=== PATIENT | female | born 1945 | race Caucasian/White ===

== ENCOUNTER 2016-09-05 01:45 | Inpatient (IN) | payer MEDICARE, OTHER ==
[2016-09-05] MEDS ORDERED: NORMAL SALINE 1000 ML 500 ML IV ONE (02:47)
[2016-09-05] MEDS ORDERED: IPRATROPIUM/ALBUTEROL 0.5-2.5 MG/3 ML AMPUL NEB ONE ×2 (03:31→04:40)
--- NOTE | 2016-09-05 03:33 | ER Document Report ---
ED Respiratory Problem - General Time seen by provider: 03:30 Mode of Arrival: Medic Information source: Patient, Friend TRAVEL OUTSIDE OF THE [place] IN LAST 30 DAYS: No - HPI Patient complains to provider of: Cough, Short of breath, Other - pain Onset: Other - see HPI Context: Hx CHF, Hx COPD Associated symptoms: Cough <FLORA ALAN - Last Filed: 09/05/16 04:30> <CAROLE ABEBE - Last Filed: 09/05/16 05:43> - General Chief Complaint: Shortness Of Breath Stated Complaint: PAIN ALL OVER Notes: Patient is a 71-year-old female presents to the emergency department with complaints of general pain, cough and difficulty breathing. Patient is quite drowsy but arousable. Patient reports that she's had some difficulty breathing and a cough that started today. Patient's shuttler or family member states that the patient usually becomes short of breath which is worse tonight. Patient was brought in because of her "pain all over." Patient's shuttler states that he gave her Percocet just prior to EMS arrival. Patient is on oxygen at home and has a history of COPD and CHF. Patient also has a nebulizer at home. (FLORA ALAN) - Related Data Allergies/Adverse Reactions: amoxicillin [Amoxicillin] Allergy (Verified 11/26/15 15:48) amoxicillin trihydrate [From Augmentin] Allergy (Verified 11/26/15 15:48) erythromycin base [Erythromycin Base] Allergy (Verified 11/26/15 15:48) Potassium Clavulanate * [From Augmentin] Allergy (Verified 11/26/15 15:48) Past Medical History - General Information source: Patient, Friend - Social History Smoking Status: Smoker,Current Status Unk Chew tobacco use (# tins/day): No Frequency of alcohol use: None Drug Abuse: None Family History: Malignancy - Lung cancer - Past Medical History Cardiac Medical History: Reports: Hx Congestive Heart Failure, Hx Coronary Artery Disease, Hx Heart Attack, Hx Hypercholesterolemia, Hx Hypertension Pulmonary Medical History: Reports: Hx Asthma, Hx COPD - Home O2 dependent, Hx Pneumonia Endocrine Medical History: Reports: Hx Hypothyroidism Malignancy Medical History: Reports: Hx Brain Cancer - Lung cancer with brain metastases, 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 Past Surgical History: Reports: Hx Cholecystectomy, Hx Orthopedic Surgery - Foot surgery - Immunizations Hx Diphtheria, Pertussis, Tetanus Vaccination: Yes Hx Pneumococcal Vaccination: 08/30/12 <FLORA ALAN - Last Filed: 09/05/16 04:30> Review of Systems - Review of Systems Constitutional: No symptoms reported EENT: No symptoms reported Cardiovascular: No symptoms reported Respiratory: See HPI, Cough, Short of breath Gastrointestinal: No symptoms reported Genitourinary: No symptoms reported Female Genitourinary: No symptoms reported Musculoskeletal: See HPI Skin: No symptoms reported Hematologic/Lymphatic: No symptoms reported Neurological/Psychological: No symptoms reported -: Yes All other systems reviewed and negative <FLORA ALAN - Last Filed: 09/05/16 04:30> Physical Exam - Vital signs Interpretation: Hypotensive, Tachycardic - General General appearance: Appears well, Alert, Other - Drowsy but arousable In distress: Mild - HEENT Head: Normocephalic, Atraumatic Eyes: Normal Pupils: PERRL Mucous membranes: Moist - Respiratory Respiratory status: No respiratory distress Chest status: Nontender Breath sounds: Wheezing - Course wheezing throughout Chest palpation: Normal - Cardiovascular Rhythm: Regular Heart sounds: Normal auscultation Murmur: No - Abdominal Inspection: Normal Distension: No distension Bowel sounds: Normal Tenderness: Nontender Organomegaly: No organomegaly - Back Back: Normal, Nontender - Extremities General upper extremity: Normal inspection, Normal ROM, Normal strength General lower extremity: Normal inspection, Normal ROM, Normal strength - Neurological Neuro grossly intact: Yes Cognition: Normal Orientation: AAOx4 Raquel Coma Scale Eye Opening: Spontaneous [place] Coma Scale Verbal: Oriented [place] Coma Scale Motor: Obeys Commands Raquel Coma Scale Total: 15 Speech: Normal - Psychological Associated symptoms: Normal affect, Normal mood - Skin Skin Temperature: Warm Skin Moisture: Dry <FLORA ALAN - Last Filed: 09/05/16 04:30> Course - Laboratory Result Diagrams: 09/05/16 03:52 09/05/16 03:52 <FLORA ALAN - Last Filed: 09/05/16 04:30> - Laboratory Result Diagrams: 09/05/16 03:52 09/05/16 03:52 <CAROLE ABEBE - Last Filed: 09/05/16 05:43> - Re-evaluation Re-evalutation: 09/05/16 05:41 Patient is a 71-year-old female who comes in with difficulty breathing. Patient is drowsy and presentation but received Percocet prior to arrival. Patient denies any chest pain. No evidence for CHF exacerbation. Patient is a continued wheezing despite DuoNeb, magnesium, and Solu-Medrol. Blood gas come back with an elevated CO2. Patient will be started on BiPAP. Patient will be given Levaquin and admitted to the [facility] for her COPD exacerbation with hypoxia and CO2 retention. (CAROLE ABEBE) - Vital Signs Vital signs: Temp Pulse Resp BP Pulse Ox 98.1 F 21 H 113/69 99 09/05/16 01:56 09/05/16 04:07 09/05/16 04:07 09/05/16 04:07 (FLORA ALAN) (CAROLE ABEBE) - Laboratory Laboratory results interpreted by me: 09/05/16 09/05/16 09/05/16 03:52 03:52 05:08 RDW 16.5 H Seg Neutrophils % 80.6 H Lymphocytes % 8.0 L Absolute Neutrophils 8.4 H VBG pH 7.25 L VBG pCO2 66.9 H* Carbon Dioxide 31 H Albumin 3.4 L (CAROLE ABEBE) Critical Care Note - Critical Care Note Total time excluding time spent on procedures (mins): 45 - evaluation and management of respiratory distress with multiple re-evaluations, management of hypoxia, coordination of admission, counseling of patient and family <CAROLE ABEBE - Last Filed: 09/05/16 05:43> Discharge <FLORA ALAN - Last Filed: 09/05/16 04:30> - Discharge Admitting Provider: [facility] Unit Admitted: [facility] <CAROLE ABEBE - Last Filed: 09/05/16 05:43> - Discharge Clinical Impression: COPD exacerbation, Respiratory distress, Hypoxia Pneumonia Qualifiers: Pneumonia type: due to unspecified organism Laterality: unspecified laterality Lung location: unspecified part of lung Qualified Code(s): J18.9 - Pneumonia, unspecified organism Condition: Fair Disposition: ADMITTED INPATIENT Scribe Attestation: 09/05/16 05:43 I personally performed the services described in the documentation, reviewed and edited the documentation which was dictated to the scribe in my presence, and it accurately records my words and actions. (CAROLE ABEBE) Scribe Documentation - Scribe Written by Scribe:: Flora Alan 09/05/16 04:36 acting as scribe for :: Reyes <FLORA ALAN - Last Filed: 09/05/16 04:30>
[2016-09-05] MEDS: MAGNESIUM SULFATE/D5W 100 ML IV SCH ×2 (04:01→06:15)
[2016-09-05 04:20] LABS: ABSOLUTE EOSINOPHILS # (AUTO) 0.1 10^3/uL (0.0-0.6); ABSOLUTE LYMPHOCYTES (AUTO) 0.8 10^3/uL (0.5-4.7); ABSOLUTE MONOCYTES (AUTO) 1.1 10^3/uL (0.1-1.4); ABSOLUTE NEUT (AUTO) 8.4 10^3/uL (1.7-8.2); BASOPHILS % (AUTO) 0.3 % (0-2); EOSINOPHILS % (AUTO) 0.8 % (0-6); HEMATOCRIT 36.9 % (36.0-47.0); HEMOGLOBIN 12.1 g/dL (12.0-15.5); HGB HCT DIFFERENCE -0.6; MEAN CORPUSCULAR HEMOGLOBIN 29.6 pg (27.0-33.4); MEAN CORPUSCULAR HGB CONC 32.7 g/dL (32.0-36.0); MEAN CORPUSCULAR VOLUME 90 fl (80-97); MONOCYTES % (AUTO) 10.3 % (3-13); RED BLOOD COUNT 4.09 10^6/uL (3.72-5.28); RED CELL DISTRIBUTION WIDTH 16.5 % (11.5-14.0); SEGMENTED NEUTROPHILS % (AUTO) 80.6 % (42-78); WHITE BLOOD COUNT 10.4 10^3/uL (4.0-10.5)
[2016-09-05 04:37] LABS: PROTHROMBIN TIME 12.7 SEC (11.4-15.4)
[2016-09-05] MEDS ORDERED: METHYLPREDNISOLONE INJ 125 MG/2 ML SDV IV ONE ×2 (04:40→08:15)
[2016-09-05 04:51] LABS: CALCIUM 8.7 mg/dL (8.4-10.2); GLUCOSE 110 mg/dL (75-110)
[2016-09-05 04:52] LABS: ALANINE AMINOTRANSFERASE 26 U/L (9-52); ALBUMIN 3.4 g/dL (3.5-5.0); ALKALINE PHOSPHATASE 72 U/L (38-126); ANION GAP 8 (5-19); ASPARTATE AMINO TRANSFERASE 27 U/L (14-36); BILIRUBIN,TOTAL 0.5 mg/dL (0.2-1.3); BLOOD UREA NITROGEN 16 mg/dL (7-20); CARBON DIOXIDE 31 mmol/L (22-30); CHLORIDE 102 mmol/L (98-107); CREATININE RESULT 0.92 mg/dL (0.52-1.25); POTASSIUM 3.8 mmol/L (3.6-5.0); SODIUM 140.6 mmol/L (137-145); TOTAL PROTEIN 6.6 g/dL (6.3-8.2)
[2016-09-05] MEDS ORDERED: LEVOFLOXACIN 750 MG/D5W RTU 150 ML IV ONE (05:18)
[2016-09-05 05:22] LABS: TROPONIN I < 0.012 ng/mL
[2016-09-05] MEDS ORDERED: GUAIFENESIN SYRP 200 MG/10 ML UDC PO PRN (05:23)
[2016-09-05 05:24] LABS: VENOUS BLOOD HCO3 28.7 mmol/L (20-32); VENOUS BLOOD PH 7.25 (7.30-7.42)
[2016-09-05 05:28] LABS: VENOUS BLOOD PCO2 66.9 mmHg (35-63)
[2016-09-05] MEDS ORDERED: FLUTICASONE NASAL SPRAY 50 MCG/SPRY 120 SPRAY/16 GM NASL SCH (05:30)
[2016-09-05] MEDS ORDERED: LEVOTHYROXINE SODIUM 0.088 MG TABLET PO SCH (06:00)
[2016-09-05 06:09] LABS: APPEARANCE,URINE CLOUDY; BILIRUBIN,URINE NEGATIVE (NEGATIVE); GLUCOSE, URINE NEGATIVE (NEGATIVE); KETONES,URINE NEGATIVE (NEGATIVE); LEUKOCYTE ESTERASE,URINE NEGATIVE (NEGATIVE); NITRITE,URINE NEGATIVE (NEGATIVE); PROTEIN,URINE NEGATIVE (NEGATIVE); URINE SPECIFIC GRAVITY 1.028; UROBILINOGEN,URINE NEGATIVE mg/dL (<2.0)
[2016-09-05] MEDS ORDERED: HEPARIN SOD (PORCINE) 5,000 UNIT/ML 1 ML SYRINGE SUBCUT ONE (08:15)
--- NOTE | 2016-09-05 08:20 | EKG REPORT ---
SEVERITY:- ABNORMAL ECG - SINUS TACHYCARDIA RIGHT BUNDLE BRANCH BLOCK : Confirmed by: Issa Martinez MD 05-Sep-2016 08:19:55
[2016-09-05] MEDS: IPRATROPIUM/ALBUTEROL 0.5-2.5 MG/3 ML AMPUL NEB SCH ×3 (08:27→19:38)
[2016-09-05] MEDS ORDERED: LEVOTHYROXINE SODIUM 0.088 MG TABLET PO ONE (08:30)
[2016-09-05] MEDS: METHYLPREDNISOLONE INJ 125 MG/2 ML SDV IV SCH ×3 (08:36→21:11)
[2016-09-05] MEDS: HEPARIN SOD (PORCINE) 5,000 UNIT/ML 1 ML SYRINGE SUBCUT SCH ×3 (08:36→21:15)
[2016-09-05] MEDS ORDERED: ACETAMINOPHEN 325 MG TABLET PO SCH (10:00)
[2016-09-05] MEDS: FUROSEMIDE 20 MG TABLET PO SCH (10:28)
[2016-09-05] MEDS: DOCUSATE SODIUM 100 MG CAPSULE PO SCH (10:28)
[2016-09-05] MEDS: POTASSIUM CHLORIDE 10 MEQ TABLET.SA PO SCH (10:28)
[2016-09-05] MEDS: GUAIFENESIN 600 MG TABLET.SA PO SCH ×2 (10:29→21:15)
[2016-09-05] MEDS: ASPIRIN 81 MG TABLET, CHEWABLE PO SCH (10:29)
[2016-09-05] MEDS ORDERED: OXYCODONE-ACETAMINOPHEN 5-325 MG TABLET PO PRN (10:48)
[2016-09-05] MEDS ORDERED: ACETAMINOPHEN 325 MG TABLET PO PRN (12:05)
[2016-09-05] MEDS: TIOTROPIUM BROMIDE DPI 5 CAP/KIT (18 MCG/CAP) IH SCH (14:52)
[2016-09-05] MEDS: FLUTICASONE NASAL SPRAY 50 MCG/SPRY 120 SPRAY/16 GM NASL SCH (15:00)
[2016-09-05] MEDS: FLUTICASONE/SALMETEROL DISKUS 500-50 MCG/DOSE IH SCH (21:11)
[2016-09-06] MEDS: IPRATROPIUM/ALBUTEROL 0.5-2.5 MG/3 ML AMPUL NEB SCH ×2 (01:33→08:09)
[2016-09-06 05:38] LABS: ANION GAP 11 (5-19); BLOOD UREA NITROGEN 19 mg/dL (7-20); CALCIUM 9.1 mg/dL (8.4-10.2); CARBON DIOXIDE 27 mmol/L (22-30); CHLORIDE 104 mmol/L (98-107); CREATININE RESULT 0.87 mg/dL (0.52-1.25); GLUCOSE 197 mg/dL (75-110); SODIUM 141.8 mmol/L (137-145)
--- NOTE | 2016-09-06 05:59 | PDOC PROGRESS REPORT ---
Subjective Progress Note for:: 09/05/16 Subjective:: Patient reports that she still short of breath. Patient denies chest pain, abdominal pain, nausea, vomiting, fevers, chills, diarrhea, constipation, headache, new onset weakness. Physical Exam Vital Signs: Temp Pulse Resp BP Pulse Ox 98.1 F 109 H 20 115/71 96 09/05/16 01:56 09/05/16 08:27 09/05/16 08:27 09/05/16 06:01 09/05/16 08:27 Intake & Output 09/04/16 09/05/16 09/06/16 06:59 06:59 06:59 Weight 86.183 kg Exam: General: Awake alert and oriented x3, mild respiratory distress HEENT: AT/NC, PERRL, EOMI, oropharynx is moist, pink, no scleral icterus, no conjunctival injection Neck: No JVD, trachea midline Chest: Tachypnea, right-sided rhonchi CV: Regular rate and rhythm, normal S1 and S2, no murmur, rub, or gallop Abdomen: Soft, nontender to palpation, nondistended, active bowel sounds; no rebound, rigidity, or guarding Extremities: No cyanosis, clubbing or edema Neuro: Cranial nerves II through XII are grossly intact without focal deficits; awake alert and oriented x3 Psych: Normal mood and affect Results Impressions: Chest X-Ray 09/05/16 02:48 IMPRESSION: NO ACUTE CARDIOPULMONARY PROCESS. NO SIGNIFICANT CHANGE FROM PRIOR STUDY. Assessment & Plan - Diagnosis (1) SIRS (systemic inflammatory response syndrome) Is this a current diagnosis for this admission?: YesPlan: Patient meets criteria for SIRS likely secondary to COPD exacerbation/possible early pneumonia. (2) Acute hypoxemic respiratory failure Is this a current diagnosis for this admission?: YesPlan: Continue oxygen as needed. Patient refused BiPAP. (3) COPD exacerbation Is this a current diagnosis for this admission?: YesPlan: Continue Solu-Medrol and scheduled nebulized treatments. Encourage incentive spirometry and flutter valve. (4) Chronic back pain Is this a current diagnosis for this admission?: YesPlan: Continue Percocet as needed (5) GERD (gastroesophageal reflux disease) Qualifiers: Esophagitis presence: esophagitis presence not specified Qualified Code (s): K21.9 - Gastro-esophageal reflux disease without esophagitis Is this a current diagnosis for this admission?: YesPlan: Continue PPI (6) Hypertension Qualifiers: Hypertension type: essential hypertension Qualified Code(s): I10 - Essential (primary) hypertension Is this a current diagnosis for this admission?: Yes (7) Lung mass Is this a current diagnosis for this admission?: YesPlan: And has prior history of lung mass and postobstructive pneumonia from this. Will consider repeat CT. 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
[2016-09-06] MEDS ORDERED: LEVOTHYROXINE SODIUM 0.088 MG TABLET PO SCH (06:00)
[2016-09-06 06:02] LABS: HEMATOCRIT 32.9 % (36.0-47.0); HEMOGLOBIN 11.1 g/dL (12.0-15.5); HGB HCT DIFFERENCE 0.4; MEAN CORPUSCULAR HGB CONC 33.6 g/dL (32.0-36.0); MEAN CORPUSCULAR VOLUME 89 fl (80-97); RED BLOOD COUNT 3.68 10^6/uL (3.72-5.28); RED CELL DISTRIBUTION WIDTH 16.3 % (11.5-14.0); WHITE BLOOD COUNT 9.1 10^3/uL (4.0-10.5)
[2016-09-06 06:09] LABS: BAND NEUTROPHILS % (MANUAL) 2 % (3-5); BASOPHILS % (MANUAL) 0 % (0-2); EOSINOPHILS % (MANUAL) 0 % (0-6); LYMPHOCYTES % (MANUAL) 6 % (13-45); TOTAL CELLS COUNTED 100
[2016-09-06 06:12] LABS: ANISOCYTOSIS 1+; POIKILOCYTOSIS SLIGHT; POLYCHROMASIA SLIGHT; TOXIC GRANULATION SLIGHT
[2016-09-06 06:13] LABS: OVALOCYTES SLIGHT; TEAR DROP CELLS SLIGHT
[2016-09-06] MEDS: METHYLPREDNISOLONE INJ 125 MG/2 ML SDV IV SCH ×3 (06:15→21:08)
[2016-09-06] MEDS: HEPARIN SOD (PORCINE) 5,000 UNIT/ML 1 ML SYRINGE SUBCUT SCH ×3 (06:15→21:07)
[2016-09-06] MEDS ORDERED: LEVOFLOXACIN 750 MG/D5W RTU 750 MG/150 ML RTUPB IV SCH (10:00)
[2016-09-06] MEDS ORDERED: (PENDING PHARMACY ID) (Esomeprazole Mag Trihydrate [Nexium] 40 MG) PO SCH (10:00)
[2016-09-06] MEDS: TIOTROPIUM BROMIDE DPI 5 CAP/KIT (18 MCG/CAP) IH SCH (10:47)
[2016-09-06] MEDS: FLUTICASONE/SALMETEROL DISKUS 500-50 MCG/DOSE IH SCH ×2 (10:47→21:08)
[2016-09-06] MEDS: DOCUSATE SODIUM 100 MG CAPSULE PO SCH (10:48)
[2016-09-06] MEDS: LEVOTHYROXINE SODIUM 0.05 MG TABLET PO SCH (10:48)
[2016-09-06] MEDS: FUROSEMIDE 20 MG TABLET PO SCH (10:49)
[2016-09-06] MEDS: LANSOPRAZOLE 30 MG TAB.RAP.DR PO SCH (10:49)
[2016-09-06] MEDS: ASPIRIN 81 MG TABLET, CHEWABLE PO SCH (10:49)
[2016-09-06] MEDS: POTASSIUM CHLORIDE 10 MEQ TABLET.SA PO SCH (10:49)
[2016-09-06] MEDS: GUAIFENESIN 600 MG TABLET.SA PO SCH ×2 (10:49→21:08)
[2016-09-06] MEDS: FLUTICASONE NASAL SPRAY 50 MCG/SPRY 120 SPRAY/16 GM NASL SCH (10:50)
--- NOTE | 2016-09-06 13:31 | PDOC PROGRESS REPORT ---
Subjective Progress Note for:: 09/06/16 Subjective:: Patient states that her breathing is slightly improved from admission. She is still short of breath at rest. She continues to have a productive cough. Patient denies fever, chills, headache, new focal weakness, chest pain, abdominal pain, nausea, vomiting, diarrhea, constipation. Physical Exam Vital Signs: Temp Pulse Resp BP Pulse Ox 98.3 F 105 H 24 H 124/77 95 09/05/16 23:29 09/06/16 08:08 09/06/16 08:08 09/05/16 23:29 09/06/16 08:08 Intake & Output 09/05/16 09/06/16 09/07/16 06:59 06:59 06:59 Intake Total 525 Balance 525 Weight 86.183 kg 87.7 kg GENERAL: No acute distress HEENT: Conjunctiva clear, nonicteric, moist mucous membranes, no JVD, midline trachea RESPIRATORY: Bilateral rhonchi/wheezes, diminished air excursion. CARDIAC: Regular rate and rhythm, no murmurs/gallops/rubs ABDOMEN: Soft, nondistended, nontender, positive bowel sounds, no rebound, no guarding EXTREMETIES: No edema, cyanosis, clubbing NEUROLOGIC: Alert, oriented to person/place/time, CN's grossly intact, no focal deficits SKIN: No rash, wounds PSYCH: Normal mood, normal affect Results Laboratory Results: 09/06/16 04:25 09/06/16 04:25 09/06/16 09/06/16 04:25 04:25 WBC 9.1 RBC 3.68 L Hgb 11.1 L Hct 32.9 L MCV 89 MCH 30.0 MCHC 33.6 RDW 16.3 H Plt Count 166 Seg Neutrophils % Not Reportable Lymphocytes % Not Reportable Monocytes % Not Reportable Eosinophils % Not Reportable Basophils % Not Reportable Absolute Neutrophils Not Reportable Absolute Lymphocytes Not Reportable Absolute Monocytes Not Reportable Absolute Eosinophils Not Reportable Absolute Basophils Not Reportable Sodium 141.8 Potassium 4.0 Chloride 104 Carbon Dioxide 27 Anion Gap 11 BUN 19 Creatinine 0.87 Est GFR ( Amer) > 60 Est GFR (Non-Af Amer) > 60 Glucose 197 H Calcium 9.1 Impressions: Chest X-Ray 09/05/16 02:48 IMPRESSION: NO ACUTE CARDIOPULMONARY PROCESS. NO SIGNIFICANT CHANGE FROM PRIOR STUDY. Assessment & Plan - Diagnosis (1) Acute hypoxemic respiratory failure Is this a current diagnosis for this admission?: YesPlan: Continue oxygen supplementation. (2) COPD exacerbation Is this a current diagnosis for this admission?: YesPlan: Continue IV Solu-Medrol, nebulizer treatments, Spiriva, Advair. (3) Pneumonia Qualifiers: Pneumonia type: due to unspecified organism Laterality: unspecified laterality Lung location: unspecified part of lung Qualified Code(s): J18.9 - Pneumonia, unspecified organism Is this a current diagnosis for this admission?: YesPlan: Chest x-ray shows no definite process however patient clinically presents as pneumonia on physical exam. Continue IV Levaquin for now. (4) Chronic back pain Is this a current diagnosis for this admission?: Yes (5) GERD (gastroesophageal reflux disease) Qualifiers: Esophagitis presence: esophagitis presence not specified Qualified Code (s): K21.9 - Gastro-esophageal reflux disease without esophagitis Is this a current diagnosis for this admission?: Yes (6) Hypertension Qualifiers: Hypertension type: essential hypertension Qualified Code(s): I10 - Essential (primary) hypertension Is this a current diagnosis for this admission?: Yes (7) Lung mass Is this a current diagnosis for this admission?: YesPlan: Repeat CT scan of chest. (8) Full code status Is this a current diagnosis for this admission?: Yes - Time Time Spent with patient: 35 or more minutes
[2016-09-06] MEDS: ALBUTEROL SULFATE 0.083% NEB 2.5 MG/3 ML AMPUL NEB SCH ×2 (13:55→20:14)
[2016-09-07] MEDS: ALBUTEROL SULFATE 0.083% NEB 2.5 MG/3 ML AMPUL NEB PRN (01:01)
[2016-09-07] MEDS: LANSOPRAZOLE 30 MG TAB.RAP.DR PO SCH (03:24)
[2016-09-07] MEDS: HEPARIN SOD (PORCINE) 5,000 UNIT/ML 1 ML SYRINGE SUBCUT SCH ×3 (05:24→21:50)
[2016-09-07] MEDS: METHYLPREDNISOLONE INJ 125 MG/2 ML SDV IV SCH (05:24)
[2016-09-07] MEDS: ALBUTEROL SULFATE 0.083% NEB 2.5 MG/3 ML AMPUL NEB SCH ×3 (07:51→19:31)
[2016-09-07 07:56] LABS: HEMATOCRIT 33.1 % (36.0-47.0); HEMOGLOBIN 10.9 g/dL (12.0-15.5); HGB HCT DIFFERENCE -0.4; MEAN CORPUSCULAR HEMOGLOBIN 29.5 pg (27.0-33.4); MEAN CORPUSCULAR HGB CONC 32.8 g/dL (32.0-36.0); MEAN CORPUSCULAR VOLUME 90 fl (80-97); RED BLOOD COUNT 3.69 10^6/uL (3.72-5.28); RED CELL DISTRIBUTION WIDTH 16.3 % (11.5-14.0); WHITE BLOOD COUNT 12.7 10^3/uL (4.0-10.5)
[2016-09-07 08:11] LABS: ANION GAP 9 (5-19); BLOOD UREA NITROGEN 22 mg/dL (7-20); CALCIUM 9.3 mg/dL (8.4-10.2); CARBON DIOXIDE 27 mmol/L (22-30); CHLORIDE 106 mmol/L (98-107); CREATININE RESULT 0.94 mg/dL (0.52-1.25); GLUCOSE 140 mg/dL (75-110); POTASSIUM 4.4 mmol/L (3.6-5.0); SODIUM 141.6 mmol/L (137-145)
[2016-09-07 08:26] LABS: BASOPHILS % (MANUAL) 0 % (0-2); EOSINOPHILS % (MANUAL) 0 % (0-6); LYMPHOCYTES % (MANUAL) 5 % (13-45); TOTAL CELLS COUNTED 100
[2016-09-07 08:27] LABS: ANISOCYTOSIS SLIGHT; OVALOCYTES SLIGHT; POIKILOCYTOSIS SLIGHT; SCHISTOCYTES SLIGHT
--- NOTE | 2016-09-07 09:17 | PDOC PROGRESS REPORT ---
Subjective Progress Note for:: 09/07/16 Subjective:: Patient's shortness of breath and cough has markedly improved over the past 24 hours. Patient denies fever, chills, headache, new focal weakness, chest pain, abdominal pain, nausea, vomiting, diarrhea, constipation. Physical Exam Vital Signs: Temp Pulse Resp BP Pulse Ox 97.4 F 81 22 H 130/66 H 99 09/07/16 07:00 09/07/16 07:00 09/07/16 07:00 09/07/16 07:00 09/07/16 07:00 Intake & Output 09/06/16 09/07/16 09/08/16 06:59 06:59 06:59 Intake Total 525 1055 Balance 525 1055 Weight 87.7 kg 90.2 kg GENERAL: No acute distress HEENT: Conjunctiva clear, nonicteric, moist mucous membranes, no JVD, midline trachea RESPIRATORY: Faint bilateral wheezes, good air excursion CARDIAC: Regular rate and rhythm, no murmurs/gallops/rubs ABDOMEN: Soft, nondistended, nontender, positive bowel sounds, no rebound, no guarding EXTREMETIES: No edema, cyanosis, clubbing NEUROLOGIC: Alert, oriented to person/place/time, CN's grossly intact, no focal deficits SKIN: No rash, wounds PSYCH: Normal mood, normal affect Results Laboratory Results: 09/07/16 07:17 09/07/16 07:17 09/07/16 09/07/16 07:17 07:17 WBC 12.7 H RBC 3.69 L Hgb 10.9 L Hct 33.1 L MCV 90 MCH 29.5 MCHC 32.8 RDW 16.3 H Plt Count 222 Seg Neutrophils % Not Reportable Lymphocytes % Not Reportable Monocytes % Not Reportable Eosinophils % Not Reportable Basophils % Not Reportable Absolute Neutrophils Not Reportable Absolute Lymphocytes Not Reportable Absolute Monocytes Not Reportable Absolute Eosinophils Not Reportable Absolute Basophils Not Reportable Sodium 141.6 Potassium 4.4 Chloride 106 Carbon Dioxide 27 Anion Gap 9 BUN 22 H Creatinine 0.94 Est GFR ( Amer) > 60 Est GFR (Non-Af Amer) 58 L Glucose 140 H Calcium 9.3 Impressions: Chest X-Ray 09/05/16 02:48 IMPRESSION: NO ACUTE CARDIOPULMONARY PROCESS. NO SIGNIFICANT CHANGE FROM PRIOR STUDY. Chest/Abdomen CTA 09/06/16 00:00 IMPRESSION: No evidence of pulmonary embolus. No suspicious interval change. Right perihilar/ prevascular opacity persists. Assessment & Plan - Diagnosis (1) Acute hypoxemic respiratory failure Is this a current diagnosis for this admission?: YesPlan: Continue oxygen supplementation. Patient has home oxygen in place at baseline. (2) COPD exacerbation Is this a current diagnosis for this admission?: YesPlan: Discontinue IV Solu-Medrol. Start prednisone 40 mg daily. Continue nebulizer treatments, Spiriva, Advair. (3) Pneumonia Qualifiers: Pneumonia type: due to unspecified organism Laterality: unspecified laterality Lung location: unspecified part of lung Qualified Code(s): J18.9 - Pneumonia, unspecified organism Is this a current diagnosis for this admission?: YesPlan: Chest x-ray shows no definite process however patient clinically presents as pneumonia on physical exam. Change Levaquin from IV to by mouth. (4) Chronic back pain Is this a current diagnosis for this admission?: Yes (5) GERD (gastroesophageal reflux disease) Qualifiers: Esophagitis presence: esophagitis presence not specified Qualified Code (s): K21.9 - Gastro-esophageal reflux disease without esophagitis Is this a current diagnosis for this admission?: Yes (6) Hypertension Qualifiers: Hypertension type: essential hypertension Qualified Code(s): I10 - Essential (primary) hypertension Is this a current diagnosis for this admission?: Yes (7) Lung mass Is this a current diagnosis for this admission?: YesPlan: Follow-up with Dr. Lugo of oncology in [facility] after discharge (8) Full code status Is this a current diagnosis for this admission?: Yes - Time Time Spent with patient: 35 or more minutes Anticipated discharge: Home Within: within 24 hours Disposition: Discharge home in a.m. if stable. Follow-[facility] with Dr. Collins at [facility].
[2016-09-07] MEDS: FLUTICASONE/SALMETEROL DISKUS 500-50 MCG/DOSE IH SCH ×2 (10:15→21:50)
[2016-09-07] MEDS: TIOTROPIUM BROMIDE DPI 5 CAP/KIT (18 MCG/CAP) IH SCH (10:16)
[2016-09-07] MEDS: DOCUSATE SODIUM 100 MG CAPSULE PO SCH (10:20)
[2016-09-07] MEDS: GUAIFENESIN 600 MG TABLET.SA PO SCH ×2 (10:21→21:50)
[2016-09-07] MEDS: FUROSEMIDE 20 MG TABLET PO SCH (10:22)
[2016-09-07] MEDS: LEVOTHYROXINE SODIUM 0.05 MG TABLET PO SCH (10:23)
[2016-09-07] MEDS: POTASSIUM CHLORIDE 10 MEQ TABLET.SA PO SCH (10:24)
[2016-09-07] MEDS: PREDNISONE 20 MG TABLET PO SCH (10:26)
[2016-09-07] MEDS: FLUTICASONE NASAL SPRAY 50 MCG/SPRY 120 SPRAY/16 GM NASL SCH (10:29)
[2016-09-07] MEDS: ASPIRIN 81 MG TABLET, CHEWABLE PO SCH (10:35)
[2016-09-07] MEDS: LEVOFLOXACIN 750 MG TABLET PO SCH (10:42)
[2016-09-08] MEDS: ALBUTEROL SULFATE 0.083% NEB 2.5 MG/3 ML AMPUL NEB PRN (03:12)
[2016-09-08] MEDS: HEPARIN SOD (PORCINE) 5,000 UNIT/ML 1 ML SYRINGE SUBCUT SCH (05:51)
[2016-09-08 06:35] LABS: ABSOLUTE MONOCYTES (AUTO) 0.9 10^3/uL (0.1-1.4); ABSOLUTE NEUT (AUTO) 6.6 10^3/uL (1.7-8.2); BASOPHILS % (AUTO) 0.1 % (0-2); HEMATOCRIT 33.2 % (36.0-47.0); HEMOGLOBIN 11.1 g/dL (12.0-15.5); HGB HCT DIFFERENCE 0.1; LYMPHOCYTES % (AUTO) 11.8 % (13-45); MEAN CORPUSCULAR HEMOGLOBIN 29.7 pg (27.0-33.4); MEAN CORPUSCULAR HGB CONC 33.3 g/dL (32.0-36.0); MEAN CORPUSCULAR VOLUME 89 fl (80-97); MONOCYTES % (AUTO) 10.4 % (3-13); RED BLOOD COUNT 3.72 10^6/uL (3.72-5.28); RED CELL DISTRIBUTION WIDTH 15.9 % (11.5-14.0); SEGMENTED NEUTROPHILS % (AUTO) 77.7 % (42-78); WHITE BLOOD COUNT 8.5 10^3/uL (4.0-10.5)
[2016-09-08 06:54] LABS: ANION GAP 7 (5-19); BLOOD UREA NITROGEN 24 mg/dL (7-20); CALCIUM 8.9 mg/dL (8.4-10.2); CARBON DIOXIDE 32 mmol/L (22-30); CHLORIDE 106 mmol/L (98-107); CREATININE RESULT 1.06 mg/dL (0.52-1.25); GLUCOSE 90 mg/dL (75-110); POTASSIUM 3.7 mmol/L (3.6-5.0); SODIUM 144.6 mmol/L (137-145)
[2016-09-08] MEDS: ALBUTEROL SULFATE 0.083% NEB 2.5 MG/3 ML AMPUL NEB SCH ×2 (08:16→13:15)
--- NOTE | 2016-09-08 08:46 | PDOC DISCHARGE SUMMARY ---
General - Admit/Disc Date/PCP Admission Date/Primary Care Provider: 09/05/16 05:23 Primary care provider - [facility]-Dr. Collins Oncology-Dr. Pillo Lugo-[facility] [place] Discharge Date: 09/08/16 - Discharge Diagnosis (1) Acute hypoxemic respiratory failure Is this a current diagnosis for this admission?: Yes (2) COPD exacerbation Is this a current diagnosis for this admission?: Yes (3) Pneumonia Is this a current diagnosis for this admission?: Yes (4) Chronic back pain Is this a current diagnosis for this admission?: Yes (5) GERD (gastroesophageal reflux disease) Is this a current diagnosis for this admission?: Yes (6) Hypertension Is this a current diagnosis for this admission?: Yes (7) Lung mass Is this a current diagnosis for this admission?: Yes (8) Full code status Is this a current diagnosis for this admission?: Yes - Additional Information Resuscitation Status: Full Code Discharge Diet: Cardiac Discharge Activity: Activity As Tolerated Home Medications: Aspirin [Aspirin 81 mg Chewable Tablet] 81 mg PO DAILY 06/09/15 Tiotropium [place] [Spiriva Handihaler 18 mcg/dose (30 Dose)] 1 cap IH DAILY 05/14 Furosemide [Lasix 20 mg Tablet] 20 mg PO DAILY 06/11/15 Docusate Sodium [Colace 100 mg Capsule] 100 mg PO DAILY #30 capsule 03/27/16 Albuterol Sulfate [Proair HFA Inhalation Aerosol 8.5 gm MDI] 1 puff IH Q4HP PRN 09/05/16 Esomeprazole Mag Trihydrate [Nexium] 40 mg PO DAILY 09/05/16 Fluticasone/Salmeterol [Advair 500-50 Diskus 28 Dose] 1 inh IH Q12 09/05/16 Levothyroxine Sodium [Synthroid] 50 mcg PO DAILY 09/05/16 Acetaminophen [Tylenol 325 mg Tablet] 650 mg PO Q4HP PRN tablet 09/08/16 Albuterol Sulfate [Ventolin 0.083% Neb 2.5 mg/3 mL Ampul] 2.5 mg NEB RTQ6HP PRN #60 vial.neb 09/08/16 Levofloxacin [Levaquin 750 mg Tablet] 750 mg PO DAILY #5 tablet 09/08/16 Ondansetron [Zofran Odt 4 mg Tablet] 1 - 2 tab PO Q4HP PRN #20 tab.rapdis Potassium Chloride [Klor-Con 10 Meq Tablet.sa] 10 meq PO DAILY #30 tablet.sa 04/16 Prednisone [Deltasone 20 mg Tablet] 40 mg PO DAILY #7 tablet 09/08/16 History of Present Illness Patient complains of: Shortness of breath History of Present Illness: TRENTON MCCOY is a 71 year old female with chronic home oxygen dependent COPD and known right lung mass that presents with acute worsening of chronic shortness of breath. Hospital Course Hospital Course: Patient was admitted and treated for acute exacerbation of COPD as a result of Moraxella pneumonia. Patient was initially on IV antibiotics and IV steroids. She has now been transitioned to oral prednisone and oral Levaquin. She is clinically improving. Respiratory status at baseline at time of discharge. Patient has known right lung mass that is followed by Dr. Pillo Lugo of oncology in [facility]. Patient is to follow-up with her oncologist as soon as possible. Physical Exam Vital Signs: Temp Pulse Resp BP Pulse Ox 98.0 F 114 H 16 143/71 H 97 09/07/16 23:34 09/08/16 08:00 09/08/16 08:00 09/07/16 23:34 09/08/16 08:00 Intake & Output 09/07/16 09/08/16 09/09/16 06:59 06:59 06:59 Intake Total 1055 1593 Balance 1055 1593 Weight 90.2 kg 95.3 kg GENERAL: No acute distress HEENT: Conjunctiva clear, nonicteric, moist mucous membranes, no JVD, midline trachea RESPIRATORY: Faint bilateral wheezes, good air excursion CARDIAC: Regular rate and rhythm, no murmurs/gallops/rubs ABDOMEN: Soft, nondistended, nontender, positive bowel sounds, no rebound, no guarding EXTREMETIES: No edema, cyanosis, clubbing NEUROLOGIC: Alert, oriented to person/place/time, CN's grossly intact, no focal deficits SKIN: No rash, wounds PSYCH: Normal mood, normal affect Results Laboratory Results: 09/08/16 05:31 09/08/16 05:31 09/08/16 09/08/16 05:31 05:31 WBC 8.5 RBC 3.72 Hgb 11.1 L Hct 33.2 L MCV 89 MCH 29.7 MCHC 33.3 RDW 15.9 H Plt Count 199 Seg Neutrophils % 77.7 Lymphocytes % 11.8 L Monocytes % 10.4 Eosinophils % 0.0 Basophils % 0.1 Absolute Neutrophils 6.6 Absolute Lymphocytes 1.0 Absolute Monocytes 0.9 Absolute Eosinophils 0.0 Absolute Basophils 0.0 Sodium 144.6 Potassium 3.7 Chloride 106 Carbon Dioxide 32 H Anion Gap 7 BUN 24 H Creatinine 1.06 Est GFR ( Amer) > 60 Est GFR (Non-Af Amer) 51 L Glucose 90 Calcium 8.9 09/05/16 05:25 Sputum Gram Stain - Final 09/05/16 05:25 Sputum Sputum Culture - Final Morax.(Branhamella)Catarrhalis Normal Jayshree Impressions: Chest X-Ray 09/05/16 02:48 IMPRESSION: NO ACUTE CARDIOPULMONARY PROCESS. NO SIGNIFICANT CHANGE FROM PRIOR STUDY. Chest/Abdomen CTA 09/06/16 00:00 IMPRESSION: No evidence of pulmonary embolus. No suspicious interval change. Right perihilar/ prevascular opacity persists. Qualifiers PATEINT BEING DISCHARGED WITH ANY OF THE FOLLOWING DIAGNOSIS?: No Plan Discharge Plan: Follow-up with primary care provider. Follow-up with oncology. Time Spent: Less than 30 Minutes
[2016-09-08] MEDS: DOCUSATE SODIUM 100 MG CAPSULE PO SCH (09:18)
[2016-09-08] MEDS: LEVOFLOXACIN 750 MG TABLET PO SCH (09:18)
[2016-09-08] MEDS: GUAIFENESIN 600 MG TABLET.SA PO SCH (09:19)
[2016-09-08] MEDS: ASPIRIN 81 MG TABLET, CHEWABLE PO SCH (09:19)
[2016-09-08] MEDS: FUROSEMIDE 20 MG TABLET PO SCH (09:19)
[2016-09-08] MEDS: PREDNISONE 20 MG TABLET PO SCH (09:19)
[2016-09-08] MEDS: LANSOPRAZOLE 30 MG TAB.RAP.DR PO SCH (09:20)
[2016-09-08] MEDS: LEVOTHYROXINE SODIUM 0.05 MG TABLET PO SCH (09:20)
[2016-09-08] MEDS: FLUTICASONE/SALMETEROL DISKUS 500-50 MCG/DOSE IH SCH (09:20)
[2016-09-08] MEDS: POTASSIUM CHLORIDE 10 MEQ TABLET.SA PO SCH (09:20)
[2016-09-08] MEDS: TIOTROPIUM BROMIDE DPI 5 CAP/KIT (18 MCG/CAP) IH SCH (09:21)
[2016-09-08] MEDS: FLUTICASONE NASAL SPRAY 50 MCG/SPRY 120 SPRAY/16 GM NASL SCH (09:21)
[2016-09-08 12:24] VITALS: BP 114/73
== END 2016-09-08 14:04 | disposition home health service (06) | DRG 177 ==
LOC: ER 01:45 → EH 05:23 → 4N 11:27
PROVIDERS: ADMIT Internal Medicine; ATTEND Internal Medicine
DX: J15.8 Pneumonia due to other specified bacteria (principal); J96.01 Acute respiratory failure with hypoxia; J44.1 Chronic obstructive pulmonary disease with (acute) exacerbation; E87.2 Acidosis; E66.2 Morbid (severe) obesity with alveolar hypoventilation; J45.909 Unspecified asthma, uncomplicated; I50.9 Heart failure, unspecified; I10 Essential (primary) hypertension; E78.5 Hyperlipidemia, unspecified; E03.9 Hypothyroidism, unspecified; K21.9 Gastro-esophageal reflux disease without esophagitis; R91.8 Other nonspecific abnormal finding of lung field; M54.9 Dorsalgia, unspecified; I25.2 Old myocardial infarction; Z99.81 Dependence on supplemental oxygen; Z68.33 Body mass index [BMI] 33.0-33.9, adult; Z88.1 Allergy status to other antibiotic agents; Z88.3 Allergy status to other anti-infective agents
CPT/HCPCS: 36415; 71010; 71275; 80048; 80053; 81001; 82803; 83605; 83735; 83880; 84484; 85025; 85610; 87040; 87070; 87077; 87086; 87205; 93005; 93010; 94640; 94660; 94799; 96365; 96375; 99291; G8996-GN; G8997-GN; G8998-GN; J1644; J1956; J2930; J3475; J3490; J7030; J7512; J7620

== ENCOUNTER 2016-09-27 23:44 | Emergency (ER) | payer MEDICARE, OTHER ==
[2016-09-28] MEDS ORDERED: IPRATROPIUM/ALBUTEROL 0.5-2.5 MG/3 ML AMPUL NEB ONE ×2 (00:33→00:50)
[2016-09-28] MEDS ORDERED: PREDNISONE 20 MG TABLET PO ONE (00:34)
--- NOTE | 2016-09-28 00:35 | ER Document Report ---
ED Medical Screen (RME) - General TRAVEL OUTSIDE OF THE [place] IN LAST 30 DAYS: No <SJ TRENT - Last Filed: 09/28/16 00:34> <TJ COLLINS - Last Filed: 09/28/16 21:59> - General Chief Complaint: Breathing Difficulty Stated Complaint: BREATHING DIFFICULTY Notes: 71-year-old female with chief complaint of worsening cough and worsening wheezing with difficulty breathing. History of COPD. Reports pain and tightness in her chest, worse with cough. She wears oxygen at night. Denies history of heart attack. Denies fever. (SJ TRENT) - Related Data Allergies/Adverse Reactions: amoxicillin [Amoxicillin] Allergy (Verified 09/05/16 05:57) amoxicillin trihydrate [From Augmentin] Allergy (Verified 09/05/16 05:57) erythromycin base [Erythromycin Base] Allergy (Verified 09/05/16 05:57) Potassium Clavulanate * [From Augmentin] Allergy (Verified 09/05/16 05:57) Past Medical History - Social History Chew tobacco use (# tins/day): No Frequency of alcohol use: None Drug Abuse: None - Past Medical History Cardiac Medical History: Reports: Hx Congestive Heart Failure, Hx Coronary Artery Disease, Hx Heart Attack, Hx Hypercholesterolemia, Hx Hypertension Pulmonary Medical History: Reports: Hx Asthma, Hx COPD - Home O2 dependent, Hx Pneumonia Endocrine Medical History: Reports: Hx Hypothyroidism Renal/ Medical History: Denies: Hx Peritoneal Dialysis Malignancy Medical History: Reports: Hx Brain Cancer - Lung cancer with brain metastases, 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 Past Surgical History: Reports: Hx Cholecystectomy, Hx Orthopedic Surgery - Foot surgery - Immunizations Hx Diphtheria, Pertussis, Tetanus Vaccination: Yes <SJ TRENT - Last Filed: 09/28/16 00:34> Physical Exam - Respiratory Respiratory status: Tachypnea Breath sounds: Decreased air movement, Nonproductive cough, Wheezing <SJ TRENT - Last Filed: 09/28/16 00:34> Course <SJ TRENT - Last Filed: 09/28/16 00:34> - Laboratory Result Diagrams: 09/28/16 01:28 09/28/16 01:28 <TJ COLLINS - Last Filed: 09/28/16 21:59> - Re-evaluation Re-evalutation: Patient difficulty speaking. Since, tachypnea, tachycardia, decreased breath sounds and wheezing throughout. (SJ TRENT) - Vital Signs Vital signs: Temp Pulse Resp BP Pulse Ox 98.4 F 109 H 24 H 129/68 H 94 09/28/16 00:14 09/28/16 00:14 09/28/16 06:00 09/28/16 02:32 09/28/16 06:00 - Laboratory Laboratory results interpreted by me: 09/28/16 09/28/16 09/28/16 01:28 01:28 01:28 RDW 16.8 H PT 11.0 L Carbonic Acid ABG pCO2 ABG pO2 ABG HCO3 ABG Total CO2 ABG O2 Saturation BUN 23 H Est GFR ( Amer) 57 L Est GFR (Non-Af Amer) 47 L 09/28/16 09/28/16 03:07 05:05 RDW PT Carbonic Acid 1.74 H ABG pCO2 57.7 H ABG pO2 40.0 L* ABG HCO3 31.9 H 27.0 H ABG Total CO2 33.6 H 28.4 H ABG O2 Saturation 71.7 L BUN Est GFR ( Amer) Est GFR (Non-Af Amer) Doctor's Discharge <SJ TRENT - Last Filed: 09/28/16 00:34> <TJ COLLINS - Last Filed: 09/28/16 21:59> - Discharge Clinical Impression: COPD exacerbation, Constipation, Tachycardia Condition: Stable Disposition: HOME, SELF-CARE Additional Instructions: INHALED BRONCHODILATORS: You have received a treatment of and/or prescription for an inhaled bronchodilator -- a medication which stimulates the airways in the lung to dilate. This improves the flow of air in asthma, bronchitis, and emphysema. These medicines have some similarity to adrenaline, and can cause similar side effects: shakiness, racing heart, and a sense of nervousness. These side effects decrease with time. Contact your doctor if these side effects are severe. Do not over-use the medicine. Too-frequent use of the inhaler may make it ineffective. Call your doctor if the inhaler is not controlling your symptoms at the prescribed doses. STEROID MEDICATION: You have been given an injection of or oral medicine of the cortisone/ steroid class. This medication is used to control inflammation or allergy. Carlos t is usually only given for a short period of time, until the acute process subsides. There are usually no side effects from short-term use of cortisone-like medications. Some persons feel an increased sense of well-being and are not sleepy at bedtime. Long-term use of cortisone medications is best avoided, unless required for a severe condition. If your condition does not remit, or relapses after the course of corticosteroid medication, you should consult your physician. ANTIBIOTIC THERAPY: You have been given an antibiotic prescription. It's important that you take all the medication, unless instructed otherwise by your physician. Failure to complete the entire course can result in relapse of your condition. Common side effects of antibiotics include nausea, intestinal cramping, or diarrhea. Women may develop vaginal yeast infections, and babies can get yeast (thrush) in the mouth following the use of antibiotics. Contact your physician if you develop significant side effects from this medication. Allergy to this antibiotic can result in hives, wheezing, faintness, or itching. If symptoms of allergy occur, stop the medication and call your doctor. DOXYCYCLINE: Doxycycline (Vibramycin, Doryx) is an antibiotic of the tetracycline family. This type of drug is useful for infections of the respiratory tract and genital tract, and is sometimes used for intestinal infections. Unlike most tetracyclines, doxycycline can be taken with food. It is longer acting, and (usually) less prone to side effects than regular tetracycline. Tetracycline antibiotics can stain immature teeth and SHOULD NOT BE TAKEN BY CHILDREN, NURSING MOTHERS, OR WOMEN. Tetracyclines can make you more prone to sunburn. Abdominal cramping, nausea, and diarrhea are occasional side effects. Women may experience vaginal yeast infections. Call the doctor at once if you develop hives, itching, shortness of breath , or lightheadedness. Chronic Obstructive Lung Disease You have chronic obstructive lung disease (COPD). The symptoms come from emphysema (damage to small airways, with trapping of air in large sacks in the lung) and chronic bronchitis (repeated infection and damage to larger airways). The cause is almost always cigarette smoking, although dust exposure, asthma, and infections contribute. You should avoid fumes, dust, and smoke (especially tobacco smoke). Your condition will flare from time to time. There is no cure, but the symptoms can be treated. Bronchodilators (asthma medicine) are often helpful. Antibiotics help when infection is present. When shortness of breath is severe, we may prescribe cortisone medication. If medicine doesn't help enough, we can arrange for you to have an oxygen tank at home. Notify your doctor at once if sputum becomes thick, foul, or bloody, if you develop a fever or chest pain, or if your shortness of breath worsens. Follow up with your physicians today and tomorrow as scheduled and discussed. Return to the ER immediately for any worsening symptoms or concerns (chest pain , increased breathing trouble, fevers). Prescriptions: Levalbuterol Tartrate [Xopenex Hfa] 15 gm IH Q4H PRN #1 hfa.aer.ad PRN Reason: Levofloxacin [Levaquin 500 mg Tablet] 500 mg PO DAILY #7 tablet Magnesium Citrate [Citrate of Magnesia 296 ml Bottle] 296 ml PO DAILY #1 bottle Prednisone [Deltasone 20 mg Tablet] 3 tab PO DAILY 5 Days Referrals: MEGHANN STEELE JR, MD [Primary Care Provider] - Follow up as needed
[2016-09-28] MEDS ORDERED: ALBUTEROL SULFATE 0.083% NEB 2.5 MG/3 ML AMPUL NEB ONE (00:50)
[2016-09-28] MEDS ORDERED: MAGNESIUM SULFATE/D5W 100 ML IV ONE (00:53)
--- NOTE | 2016-09-28 00:57 | ER Document Report ---
ED General - General Chief Complaint: Breathing Difficulty Stated Complaint: BREATHING DIFFICULTY Notes: This is a 71-year-old female with a history of CHF and oxygen-dependent COPD who presents emergency Department with increasing shortness of breath and chest pain. Of note she was recently admitted from September 05 through September 08 for COPD exacerbation. She states that she has had increasing wheezing all day and then about 2 hours ago while she was on her computer she developed increasing cough associated with sharp pain in the center of her chest that was worse with deep breathing and coughing. She also reports subjective fevers at home. She states that this pain feels very similar to when she had pneumonia. TRAVEL OUTSIDE OF THE [place] IN LAST 30 DAYS: No - Related Data Allergies/Adverse Reactions: amoxicillin [Amoxicillin] Allergy (Verified 09/05/16 05:57) amoxicillin trihydrate [From Augmentin] Allergy (Verified 09/05/16 05:57) erythromycin base [Erythromycin Base] Allergy (Verified 09/05/16 05:57) Potassium Clavulanate * [From Augmentin] Allergy (Verified 09/05/16 05:57) Past Medical History - General Information source: Patient, REPLACED BY [facility] Records - Social History Smoking Status: Former Smoker Chew tobacco use (# tins/day): No Frequency of alcohol use: None Drug Abuse: None Family History: Malignancy - Lung cancer Patient has suicidal ideation: No Patient has homicidal ideation: No - Past Medical History Cardiac Medical History: Reports: Hx Congestive Heart Failure, Hx Coronary Artery Disease, Hx Heart Attack, Hx Hypercholesterolemia, Hx Hypertension Pulmonary Medical History: Reports: Hx Asthma, Hx COPD - Home O2 dependent, Hx Pneumonia Endocrine Medical History: Reports: Hx Hypothyroidism Renal/ Medical History: Denies: Hx Peritoneal Dialysis Malignancy Medical History: Reports: Hx Brain Cancer - Lung cancer with brain metastases, 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 Past Surgical History: Reports: Hx Cholecystectomy, Hx Orthopedic Surgery - Foot surgery - Immunizations Hx Diphtheria, Pertussis, Tetanus Vaccination: Yes Hx Pneumococcal Vaccination: 08/30/12 Review of Systems - Review of Systems Notes: REVIEW OF SYSTEMS: CONSTITUTIONAL : As per history of present illness EENT: Denies eye, ear, throat, or mouth pain or symptoms. Denies nasal or sinus congestion. CARDIOVASCULAR: As per history of present illness RESPIRATORY: As per history of present illness GASTROINTESTINAL: Denies abdominal pain. Denies nausea, vomiting, or diarrhea. GENITOURINARY: Denies difficulty urinating, painful urination, burning, frequency, or blood in urine. MUSCULOSKELETAL: Denies neck or back pain or joint pain or swelling. SKIN: Denies rash or skin lesions. HEMATOLOGIC : Denies easy bruising or bleeding. LYMPHATIC: Denies swollen, enlarged glands. NEUROLOGICAL: Denies altered mental status or loss of consciousness. Denies headache. PSYCHIATRIC: Denies anxiety or stress or depression. ALL OTHER SYSTEMS REVIEWED AND NEGATIVE. Physical Exam - Vital signs Vitals: Temp Pulse Resp BP Pulse Ox 98.4 F 109 H 22 H 117/64 95 09/28/16 00:14 09/28/16 00:14 09/28/16 00:14 09/28/16 00:14 09/28/16 00:14 - Notes Notes: PHYSICAL EXAMINATION: GENERAL: Elderly obese female with audible wheezing and mild respiratory distress. She is pleasant and conversant and able to speak in complete sentences. HEAD: Atraumatic, normocephalic. EYES: Pupils equal round and reactive to light, extraocular movements intact, sclera anicteric, conjunctiva are normal. ENT: nares patent, oropharynx clear without exudates. Moist mucous membranes. NECK: Normal range of motion, supple without lymphadenopathy LUNGS: Diffuse inspiratory and expiratory wheezes throughout bilaterally HEART: Regular rate and rhythm without murmurs ABDOMEN: Soft, obese ,nontender, normoactive bowel sounds. No guarding, no rebound. No masses appreciated. EXTREMITIES: Normal range of motion. Chronic venous stasis changes to bilateral lower extremities with 1+ edema symmetric. NEUROLOGICAL: Cranial nerves grossly intact. Normal speech. No gross focal motor or sensory deficits appreciated PSYCH: Normal mood, normal affect. SKIN: Warm, Dry, normal turgor, no rashes or lesions noted. Course - Re-evaluation Re-evalutation: 09/28/16 02:52 Patient states that she is breathing much better after her nebulizer treatments. She no longer has any chest pain. She states that her breathing is at her baseline and she would really like to get home. However, she does tell me that she has not had a bowel movement in at least a week and she has some abdominal discomfort. She is requesting an enema. I will perform a rectal exam. 09/28/16 05:51 Patient had some relief with enema. She continues to state that her breathing is better. However she is noted to be tachycardic with a rate of 110-112 lying in bed. At this point we will do a trial of ambulation off oxygen and assess her tolerance. 09/28/16 06:20 Patient was able to ambulate around the department and did very well. On room air she maintained her sats above 92%. She is still noted to be tachycardic with a heart rate between 100-120. I expressed to her my concern about this and recommended that we observe her in the hospital. She states that she is breathing well and this is the best that she has felt in a while and she really wants to go home. She actually has a follow-up appointment with her ob tech today and her primary care physician tomorrow. She agrees to return for any worsening symptoms. She understands my concern about her tachycardia and nevertheless she wishes to go home today. I did review prior notes from prior visits and admissions, and it appears that the patient's heart rate is usually 100-115, so this tachycardia does not appear to be a new symptom today. - Vital Signs Vital signs: Temp Pulse Resp BP Pulse Ox 98.4 F 109 H 22 H 117/64 95 09/28/16 00:14 09/28/16 00:14 09/28/16 00:14 09/28/16 00:14 09/28/16 00:14 - Laboratory Result Diagrams: 09/28/16 01:28 09/28/16 01:28 Laboratory results interpreted by me: 09/28/16 09/28/16 09/28/16 01:28 01:28 01:28 RDW 16.8 H PT 11.0 L Carbonic Acid ABG pCO2 ABG pO2 ABG HCO3 ABG Total CO2 ABG O2 Saturation BUN 23 H Est GFR ( Amer) 57 L Est GFR (Non-Af Amer) 47 L 09/28/16 09/28/16 03:07 05:05 RDW PT Carbonic Acid 1.74 H ABG pCO2 57.7 H ABG pO2 40.0 L* ABG HCO3 31.9 H 27.0 H ABG Total CO2 33.6 H 28.4 H ABG O2 Saturation 71.7 L BUN Est GFR ( Amer) Est GFR (Non-Af Amer) - EKG Interpretation by Me Additional EKG results interpreted by me: 09/28/16 06:46 EKG demonstrates sinus rhythm with a rate of 104 with a right bundle branch block. There are no significant changes as compared to prior EKG. Discharge - Discharge Clinical Impression: COPD exacerbation, Tachycardia Constipation Qualifiers: Constipation type: other constipation type Qualified Code(s): K59.09 - Other constipation Condition: Stable Disposition: HOME, SELF-CARE Additional Instructions: INHALED BRONCHODILATORS: You have received a treatment of and/or prescription for an inhaled bronchodilator -- a medication which stimulates the airways in the lung to dilate. This improves the flow of air in asthma, bronchitis, and emphysema. These medicines have some similarity to adrenaline, and can cause similar side effects: shakiness, racing heart, and a sense of nervousness. These side effects decrease with time. Contact your doctor if these side effects are severe. Do not over-use the medicine. Too-frequent use of the inhaler may make it ineffective. Call your doctor if the inhaler is not controlling your symptoms at the prescribed doses. STEROID MEDICATION: You have been given an injection of or oral medicine of the cortisone/ steroid class. This medication is used to control inflammation or allergy. Carlos t is usually only given for a short period of time, until the acute process subsides. There are usually no side effects from short-term use of cortisone-like medications. Some persons feel an increased sense of well-being and are not sleepy at bedtime. Long-term use of cortisone medications is best avoided, unless required for a severe condition. If your condition does not remit, or relapses after the course of corticosteroid medication, you should consult your physician. ANTIBIOTIC THERAPY: You have been given an antibiotic prescription. It's important that you take all the medication, unless instructed otherwise by your physician. Failure to complete the entire course can result in relapse of your condition. Common side effects of antibiotics include nausea, intestinal cramping, or diarrhea. Women may develop vaginal yeast infections, and babies can get yeast (thrush) in the mouth following the use of antibiotics. Contact your physician if you develop significant side effects from this medication. Allergy to this antibiotic can result in hives, wheezing, faintness, or itching. If symptoms of allergy occur, stop the medication and call your doctor. DOXYCYCLINE: Doxycycline (Vibramycin, Doryx) is an antibiotic of the tetracycline family. This type of drug is useful for infections of the respiratory tract and genital tract, and is sometimes used for intestinal infections. Unlike most tetracyclines, doxycycline can be taken with food. It is longer acting, and (usually) less prone to side effects than regular tetracycline. Tetracycline antibiotics can stain immature teeth and SHOULD NOT BE TAKEN BY CHILDREN, NURSING MOTHERS, OR WOMEN. Tetracyclines can make you more prone to sunburn. Abdominal cramping, nausea, and diarrhea are occasional side effects. Women may experience vaginal yeast infections. Call the doctor at once if you develop hives, itching, shortness of breath , or lightheadedness. Chronic Obstructive Lung Disease You have chronic obstructive lung disease (COPD). The symptoms come from emphysema (damage to small airways, with trapping of air in large sacks in the lung) and chronic bronchitis (repeated infection and damage to larger airways). The cause is almost always cigarette smoking, although dust exposure, asthma, and infections contribute. You should avoid fumes, dust, and smoke (especially tobacco smoke). Your condition will flare from time to time. There is no cure, but the symptoms can be treated. Bronchodilators (asthma medicine) are often helpful. Antibiotics help when infection is present. When shortness of breath is severe, we may prescribe cortisone medication. If medicine doesn't help enough, we can arrange for you to have an oxygen tank at home. Notify your doctor at once if sputum becomes thick, foul, or bloody, if you develop a fever or chest pain, or if your shortness of breath worsens. Follow up with your physicians today and tomorrow as scheduled and discussed. Return to the ER immediately for any worsening symptoms or concerns (chest pain , increased breathing trouble, fevers). Prescriptions: Levalbuterol Tartrate [Xopenex Hfa] 15 gm IH Q4H PRN #1 hfa.aer.ad PRN Reason: Levofloxacin [Levaquin 500 mg Tablet] 500 mg PO DAILY #7 tablet Magnesium Citrate [Citrate of Magnesia 296 ml Bottle] 296 ml PO DAILY #1 bottle Prednisone [Deltasone 20 mg Tablet] 3 tab PO DAILY 5 Days Referrals: MEGHANN STEELE JR, MD [Primary Care Provider] - Follow up as needed
[2016-09-28 01:47] LABS: PARTIAL THROMBOPLASTIN TIME 25.5 SEC (23.5-35.8)
[2016-09-28 01:52] LABS: ABSOLUTE EOSINOPHILS # (AUTO) 0.2 10^3/uL (0.0-0.6); ABSOLUTE LYMPHOCYTES (AUTO) 1.5 10^3/uL (0.5-4.7); ABSOLUTE MONOCYTES (AUTO) 0.6 10^3/uL (0.1-1.4); ABSOLUTE NEUT (AUTO) 3.5 10^3/uL (1.7-8.2); BASOPHILS % (AUTO) 0.8 % (0-2); EOSINOPHILS % (AUTO) 3.6 % (0-6); HEMATOCRIT 37.4 % (36.0-47.0); HEMOGLOBIN 12.4 g/dL (12.0-15.5); HGB HCT DIFFERENCE -0.2; MEAN CORPUSCULAR HEMOGLOBIN 30.4 pg (27.0-33.4); MEAN CORPUSCULAR HGB CONC 33.3 g/dL (32.0-36.0); MEAN CORPUSCULAR VOLUME 92 fl (80-97); MONOCYTES % (AUTO) 10.9 % (3-13); RED BLOOD COUNT 4.08 10^6/uL (3.72-5.28); RED CELL DISTRIBUTION WIDTH 16.8 % (11.5-14.0); SEGMENTED NEUTROPHILS % (AUTO) 58.7 % (42-78); WHITE BLOOD COUNT 5.9 10^3/uL (4.0-10.5)
[2016-09-28 01:54] LABS: ALANINE AMINOTRANSFERASE 25 U/L (9-52); ALKALINE PHOSPHATASE 80 U/L (38-126); ANION GAP 12 (5-19); ASPARTATE AMINO TRANSFERASE 30 U/L (14-36); BILIRUBIN,TOTAL 0.4 mg/dL (0.2-1.3); BLOOD UREA NITROGEN 23 mg/dL (7-20); CALCIUM 9.4 mg/dL (8.4-10.2); CARBON DIOXIDE 29 mmol/L (22-30); CHLORIDE 101 mmol/L (98-107); CREATINE KINASE 64 U/L (30-135); CREATININE RESULT 1.13 mg/dL (0.52-1.25); GLUCOSE 91 mg/dL (75-110); POTASSIUM 3.9 mmol/L (3.6-5.0); SODIUM 142.1 mmol/L (137-145); TOTAL PROTEIN 6.8 g/dL (6.3-8.2)
[2016-09-28 02:05] LABS: CREATINE KINASE MB 1.79 ng/mL (<4.55)
[2016-09-28 02:09] LABS: TROPONIN I < 0.012 ng/mL
[2016-09-28] MEDS ORDERED: NORMAL SALINE 1000 ML 500 ML IV ONE (02:33)
[2016-09-28 03:25] LABS: ARTERIAL BLOOD BASE EXCESS 4.9 mmol/L; ARTERIAL BLOOD O2 SATURATION 71.7 % (94-98)
[2016-09-28] MEDS ORDERED: MINERAL OIL 30 ML UDCUP ONE (04:28)
[2016-09-28 05:20] LABS: ARTERIAL BLOOD BASE EXCESS 1.7 mmol/L
[2016-09-28 07:42] VITALS: BP 129/68
--- NOTE | 2016-09-28 08:30 | EKG REPORT ---
SEVERITY:- ABNORMAL ECG - SINUS TACHYCARDIA RIGHT BUNDLE BRANCH BLOCK : Confirmed by: Issa Martinez MD 28-Sep-2016 08:29:51
== END 2016-09-28 07:47 | disposition home or self-care (01) ==
LOC: ER 23:44
DX: J44.1 Chronic obstructive pulmonary disease with (acute) exacerbation (principal); Z99.81 Dependence on supplemental oxygen; K59.00 Constipation, unspecified; J45.909 Unspecified asthma, uncomplicated; R06.02 Shortness of breath; I45.10 Unspecified right bundle-branch block; R00.0 Tachycardia, unspecified; R07.9 Chest pain, unspecified; R05 Cough; I25.10 Atherosclerotic heart disease of native coronary artery without angina pectoris; I25.2 Old myocardial infarction; I10 Essential (primary) hypertension; E66.9 Obesity, unspecified; Z68.30 Body mass index [BMI] 30.0-30.9, adult; Z87.01 Personal history of pneumonia (recurrent); Z88.0 Allergy status to penicillin; Z88.1 Allergy status to other antibiotic agents; Z87.891 Personal history of nicotine dependence; Z80.1 Family history of malignant neoplasm of trachea, bronchus and lung; Z85.118 Personal history of other malignant neoplasm of bronchus and lung; Z85.841 Personal history of malignant neoplasm of brain
CPT/HCPCS: 93005; 94640 ×2; 99285; 96365; 36415; 82553; 82803; 82550; 85025; 85610; 85730; 80053; 84484; 71010; 93010; J3475; A9270 ×3; J7512; J7620

== ENCOUNTER 2016-10-12 01:31 | Emergency (ER) | payer MEDICARE, OTHER ==
[2016-10-12 06:01] LABS: ABSOLUTE EOSINOPHILS # (AUTO) 0.2 10^3/uL (0.0-0.6); ABSOLUTE MONOCYTES (AUTO) 0.5 10^3/uL (0.1-1.4); ABSOLUTE NEUT (AUTO) 3.6 10^3/uL (1.7-8.2); BASOPHILS % (AUTO) 0.3 % (0-2); EOSINOPHILS % (AUTO) 2.9 % (0-6); HEMATOCRIT 33.3 % (36.0-47.0); HEMOGLOBIN 11.2 g/dL (12.0-15.5); HGB HCT DIFFERENCE 0.3; LYMPHOCYTES % (AUTO) 19.4 % (13-45); MEAN CORPUSCULAR HEMOGLOBIN 30.6 pg (27.0-33.4); MEAN CORPUSCULAR HGB CONC 33.5 g/dL (32.0-36.0); MEAN CORPUSCULAR VOLUME 91 fl (80-97); MONOCYTES % (AUTO) 10.3 % (3-13); RED BLOOD COUNT 3.65 10^6/uL (3.72-5.28); RED CELL DISTRIBUTION WIDTH 15.7 % (11.5-14.0); SEGMENTED NEUTROPHILS % (AUTO) 67.1 % (42-78); WHITE BLOOD COUNT 5.3 10^3/uL (4.0-10.5)
[2016-10-12] MEDS ORDERED: IPRATROPIUM/ALBUTEROL 0.5-2.5 MG/3 ML AMPUL NEB ONE ×2 (06:27→07:13)
--- NOTE | 2016-10-12 06:27 | ER Document Report ---
ED GI/ <HUGO GUTIERREZ - Last Filed: 10/12/16 09:58> - General Time seen by provider: 06:21 Mode of Arrival: Ambulatory Information source: Patient TRAVEL OUTSIDE OF THE [place] IN LAST 30 DAYS: No - HPI Patient complains to provider of: Abdominal pain, Other - constipation Onset: Other - see HPI note Associated symptoms: Constipation, Nausea <FLORA ALAN - Last Filed: 10/12/16 10:10> - General Chief Complaint: Constipation Stated Complaint: ABDOMIAL PAIN Notes: Patient is a 71 year old female presenting to the emergency department for constipation and abdominal pain. Patient states her pain and discomfort started yesterday. Patient states her last bowel movement was 5 days ago (10/07/16). Patient takes stool softeners daily and also tried an enema without success. Patient also complains of increased flatus. Patient is a former smoker with COPD and is O2 dependent at home. Patient states she had some difficulty breathing onset due to coming to the ED without O2. Patient was placed on 2L O2 and states her breathing is doing somewhat better. Patient's PCP is the [facility] on [address]. Patient also has some chronic erythema and swelling to her left lower extremity. Patient states this has been occurring for the past 2 years. Patient's PCP is aware of this and has prescribed her to continue taking lasix for this. (FLORA ALAN) - Related Data Allergies/Adverse Reactions: amoxicillin [Amoxicillin] Allergy (Verified 10/12/16 05:27) amoxicillin trihydrate [From Augmentin] Allergy (Verified 10/12/16 05:27) erythromycin base [Erythromycin Base] Allergy (Verified 10/12/16 05:27) Potassium Clavulanate * [From Augmentin] Allergy (Verified 10/12/16 05:27) Past Medical History - General Information source: Patient - Social History Smoking Status: Former Smoker Frequency of alcohol use: None Drug Abuse: None Family History: Malignancy - Lung cancer Patient has suicidal ideation: No Patient has homicidal ideation: No - Past Medical History Cardiac Medical History: Reports: Hx Congestive Heart Failure, Hx Coronary Artery Disease, Hx Heart Attack, Hx Hypercholesterolemia, Hx Hypertension Pulmonary Medical History: Reports: Hx Asthma, Hx COPD - Home O2 dependent, Hx Pneumonia Endocrine Medical History: Reports: Hx Hypothyroidism Malignancy Medical History: Reports: Hx Brain Cancer - Lung cancer with brain metastases, 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 Past Surgical History: Reports: Hx Cholecystectomy, Hx Orthopedic Surgery - Foot surgery - Immunizations Hx Diphtheria, Pertussis, Tetanus Vaccination: Yes Hx Pneumococcal Vaccination: 08/30/12 <FLORA ALAN - Last Filed: 10/12/16 10:10> Review of Systems - Review of Systems Constitutional: No symptoms reported EENT: No symptoms reported Cardiovascular: No symptoms reported Respiratory: No symptoms reported Gastrointestinal: See HPI, Abdominal pain, Nausea, Constipation Genitourinary: No symptoms reported Female Genitourinary: No symptoms reported Musculoskeletal: See HPI, Leg swelling Skin: See HPI - erythema L lower extremity Hematologic/Lymphatic: No symptoms reported Neurological/Psychological: No symptoms reported -: Yes All other systems reviewed and negative <FLORA ALAN - Last Filed: 10/12/16 10:10> Physical Exam <HUGO GUTIERREZ - Last Filed: 10/12/16 09:58> - Vital signs Interpretation: Normal - General General appearance: Appears well, Alert In distress: Mild - HEENT Head: Normocephalic, Atraumatic Eyes: Normal Pupils: PERRL Nasal: Other - nasal cannula in place Mucous membranes: Moist - Respiratory Respiratory status: No respiratory distress Chest status: Nontender Breath sounds: Wheezing - diffuse inspiratory and expiratory wheezes Chest palpation: Normal - Cardiovascular Rhythm: Regular Heart sounds: Normal auscultation Murmur: No - Abdominal Inspection: Normal Distension: Distended - slightly Bowel sounds: Normal Tenderness: Nontender Organomegaly: No organomegaly - Back Back: Normal, Nontender - Extremities General upper extremity: Normal inspection, Normal ROM, Normal strength General lower extremity: Other - left lower extremity has some erythema and swelling consistent with the patient's chronic edema and cellulitis - Neurological Neuro grossly intact: Yes Cognition: Normal Orientation: AAOx4 [place] Coma Scale Eye Opening: Spontaneous [place] Coma Scale Verbal: Oriented [place] Coma Scale Motor: Obeys Commands Raquel Coma Scale Total: 15 Speech: Normal - Psychological Associated symptoms: Normal affect, Normal mood - Skin Skin Temperature: Warm Skin Moisture: Dry <FLORA ALAN - Last Filed: 10/12/16 10:10> - Vital signs Vitals: Temp Pulse Resp BP Pulse Ox 97.9 F 98 20 133/85 H 95 10/12/16 01:38 10/12/16 01:38 10/12/16 01:38 10/12/16 01:38 10/12/16 01:38 Course - Laboratory Result Diagrams: 10/12/16 05:45 10/12/16 05:45 - Diagnostic Test Radiology reviewed: Image reviewed, Reports reviewed - Acute abdominal series does not show any new abnormalities with respect to her COPD. The abdomen is full of stool without obstruction. <HUGO GUTIERREZ - Last Filed: 10/12/16 09:58> - Laboratory Result Diagrams: 10/12/16 05:45 10/12/16 05:45 <FLORA ALAN - Last Filed: 10/12/16 10:10> - Re-evaluation Re-evalutation: 10/12/16 09:51 Patient had minimal results from the enema. At this time she is sleeping. She told the nurse he was not having any abdominal cramps or discomfort. Earlier she had reported the breathing treatments helped her breathing quite a bit. (HUGO GUTIERREZ) - Vital Signs Vital signs: Temp Pulse Resp BP Pulse Ox 97.8 F 98 16 117/62 96 10/12/16 09:52 10/12/16 09:52 10/12/16 09:52 10/12/16 09:52 10/12/16 09:52 - Laboratory Laboratory results interpreted by me: 10/12/16 10/12/16 05:45 05:45 RBC 3.65 L Hgb 11.2 L Hct 33.3 L RDW 15.7 H Total Protein 5.5 L Albumin 3.2 L Discharge <HUGO GUTIERREZ - Last Filed: 10/12/16 09:58> <FLORA ALAN - Last Filed: 10/12/16 10:10> - Discharge Clinical Impression: Constipation Qualifiers: Constipation type: unspecified constipation type Qualified Code(s): K59.00 - Constipation, unspecified COPD (chronic obstructive pulmonary disease) Qualifiers: COPD type: unspecified COPD Qualified Code(s): J44.9 - Chronic obstructive pulmonary disease, unspecified Condition: Stable Disposition: HOME, SELF-CARE Additional Instructions: Constipation: Constipation is a common problem. It is especially likely as you get older. Constipation is a common cause of abdominal pain, but sometimes causes no symptoms at all. Causes of constipation include certain medications, dehydration, diets, inactivity, and low-fiber intake. Rarely, it can be a symptom of underlying disease. The physician has evaluated you for this. Avoid constipation by eating a diet high in fiber, fruits, and vegetables. Drink plenty of liquids. Get regular exercise. If possible, avoid constipating medicines like narcotic pain medication. Some vitamin tablets can cause constipation. Stool softeners may be needed for difficult cases. An excellent stool softener is Konsyl which is available at [employer], [employer]. Just add a teaspoon to a glass of pineapple or orange juice daily or twice a day if needed. Laxatives are useful for occasional constipation. You should use them only when necessary. Too-frequent use can make your bowels dependent on them. Some over the counter laxatives available without prescription are: Milk of Magnesia, 1-2 tablespoons twice a day Dulcolax, 5 mg pill or 10 mg suppository. Citrate of Magnesia, 4-5 ounces a day for a day or two For acute constipation, Fleet's Enemas and Dulcolax suppositories are helpful. Chronic, terminal superintendent use of laxatives or enemas is not a good idea. Your bowel may become dependant on them. You do not need to have a bowel movement every day. Many people do fine with a bowel movement every three or four days. You should call your doctor or return for re-evaluation if you pass blood in the stool, or if you develop fever or increasing abdominal pain. TAKE MiraLax EVERY DAY. DRINK PLENTY OF FLUIDS. FOLLOW UP WITH YOUR DOCTOR IF NOT IMPROVING OVER THE NEXT SEVERAL DAYS. RETURN TO THE EMERGENCY ROOM IF ANY NEW OR WORSENING SYMPTOMS. Referrals: MEGHANN STEELE JR, MD [Primary Care Provider] - Follow up as needed Scribe Attestation: 10/12/16 09:58 I personally performed the services described in the documentation, reviewed and edited the documentation which was dictated to the scribe in my presence, and it accurately records my words and actions. (HUGO GUTIERREZ) Scribe Documentation - Scribe Written by Scribe:: Flora Alan 10/12/16 07:05 acting as scribe for :: Mikael <FLORA ALAN - Last Filed: 10/12/16 10:10>
[2016-10-12 06:30] LABS: ALANINE AMINOTRANSFERASE 27 U/L (9-52); ALBUMIN 3.2 g/dL (3.5-5.0); ALKALINE PHOSPHATASE 58 U/L (38-126); ANION GAP 7 (5-19); ASPARTATE AMINO TRANSFERASE 18 U/L (14-36); BILIRUBIN,TOTAL 0.3 mg/dL (0.2-1.3); BLOOD UREA NITROGEN 16 mg/dL (7-20); CALCIUM 9.1 mg/dL (8.4-10.2); CARBON DIOXIDE 30 mmol/L (22-30); CHLORIDE 105 mmol/L (98-107); CREATININE RESULT 0.91 mg/dL (0.52-1.25); GLUCOSE 109 mg/dL (75-110); POTASSIUM 3.7 mmol/L (3.6-5.0); SODIUM 142.3 mmol/L (137-145); TOTAL PROTEIN 5.5 g/dL (6.3-8.2)
[2016-10-12 06:52] LABS: APPEARANCE,URINE CLEAR; BILIRUBIN,URINE NEGATIVE (NEGATIVE); GLUCOSE, URINE NEGATIVE (NEGATIVE); KETONES,URINE NEGATIVE (NEGATIVE); LEUKOCYTE ESTERASE,URINE NEGATIVE (NEGATIVE); NITRITE,URINE NEGATIVE (NEGATIVE); PROTEIN,URINE NEGATIVE (NEGATIVE); UROBILINOGEN,URINE NEGATIVE mg/dL (<2.0)
[2016-10-12] MEDS ORDERED: MINERAL OIL 30 ML UDCUP PR ONE (07:13)
[2016-10-12 09:52] VITALS: BP 117/62
[2016-10-12] MEDS ORDERED: MAGNESIUM CITRATE 296 ML BOTTLE PO ONE (09:57)
== END 2016-10-12 10:28 | disposition home or self-care (01) ==
LOC: ER 01:31
DX: J44.9 Chronic obstructive pulmonary disease, unspecified (principal); K59.00 Constipation, unspecified; R10.9 Unspecified abdominal pain; R14.3 Flatulence; Z87.891 Personal history of nicotine dependence
CPT/HCPCS: 94640 ×2; 99284; 36415; 83690; 85025; 80053; 81001; 74022; J3490 ×2; A9270; J7620

== ENCOUNTER 2016-11-11 22:57 | Emergency (ER) | payer MEDICARE, OTHER ==
[2016-11-11] MEDS ORDERED: NORMAL SALINE 1000 ML 500 ML IV ONE (23:22)
--- NOTE | 2016-11-11 23:22 | ER Document Report ---
ED General - General Chief Complaint: Nausea/Vomiting/Diarrhea Stated Complaint: WEAKNESS Notes: Patient is a 71-year-old female with past medical history of COPD with oxygen dependence who presents with 36 hours of diarrhea and 2-3 hours of vomiting. Patient states that she's had a total of 8 episodes of watery diarrhea since yesterday morning. She did have 2 episodes of vomiting tonight after eating dinner. Since that time she has been able tolerate fluids but has not tried any additional solids. Multiple sick contacts with similar symptoms. Nothing improves or worsens her symptoms. She denies any focal abdominal pain. She has not seen her primary care doctor regarding today's concerns. TRAVEL OUTSIDE OF THE [place] IN LAST 30 DAYS: No - Related Data Allergies/Adverse Reactions: amoxicillin [Amoxicillin] Allergy (Verified 10/12/16 05:27) amoxicillin trihydrate [From Augmentin] Allergy (Verified 10/12/16 05:27) erythromycin base [Erythromycin Base] Allergy (Verified 10/12/16 05:27) Potassium Clavulanate * [From Augmentin] Allergy (Verified 10/12/16 05:27) Past Medical History - General Information source: Patient - Social History Smoking Status: Former Smoker Frequency of alcohol use: None Drug Abuse: None Lives with: Family Family History: Malignancy - Lung cancer - Past Medical History Cardiac Medical History: Reports: Hx Congestive Heart Failure, Hx Coronary Artery Disease, Hx Heart Attack, Hx Hypercholesterolemia, Hx Hypertension Pulmonary Medical History: Reports: Hx Asthma, Hx COPD - Home O2 dependent, Hx Pneumonia Endocrine Medical History: Reports: Hx Hypothyroidism Renal/ Medical History: Denies: Hx Peritoneal Dialysis Malignancy Medical History: Reports: Hx Brain Cancer - Lung cancer with brain metastases, 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 Past Surgical History: Reports: Hx Cholecystectomy, Hx Orthopedic Surgery - Foot surgery - Immunizations Hx Diphtheria, Pertussis, Tetanus Vaccination: Yes Hx Pneumococcal Vaccination: 08/30/12 Review of Systems - Review of Systems Notes: Constitutional: Negative for fever. HENT: Negative for sore throat. Eyes: Negative for visual changes. Cardiovascular: Negative for chest pain. Respiratory: Negative for shortness of breath. Gastrointestinal: Negative for abdominal pain, positive for vomiting and diarrhea Genitourinary: Negative for dysuria. Musculoskeletal: Negative for back pain. Skin: Negative for rash. Neurological: Negative for headaches, weakness or numbness. 10 point ROS negative except as marked above and in HPI. Physical Exam - Vital signs Vitals: Temp Pulse Resp BP Pulse Ox 97.7 F 99 18 129/63 H 96 11/11/16 23:04 11/11/16 23:04 11/11/16 23:04 11/11/16 23:04 11/11/16 23:04 Interpretation: Normal Notes: PHYSICAL EXAMINATION: GENERAL: Well-appearing, well-nourished and in no acute distress. HEAD: Atraumatic, normocephalic. EYES: Pupils equal round and reactive to light, extraocular movements intact, sclera anicteric, conjunctiva are normal. ENT: nares patent, oropharynx clear without exudates. Moist mucous membranes. NECK: Normal range of motion, supple without lymphadenopathy LUNGS: Breath sounds clear to auscultation bilaterally and equal. No wheezes rales or rhonchi. HEART: Regular rate and rhythm without murmurs ABDOMEN: Soft, nontender, normoactive bowel sounds. No guarding, no rebound. No masses appreciated. EXTREMITIES: Normal range of motion, no pitting or edema. No cyanosis. NEUROLOGICAL: No focal neurological deficits. Moves all extremities spontaneously and on command. PSYCH: Normal mood, normal affect. SKIN: Warm, Dry, normal turgor, no rashes or lesions noted. Course - Re-evaluation Re-evalutation: 11/11/16 23:21 Presentation of an overall well-appearing patient in no acute distress with complaints of nausea, vomiting, diarrhea. Patient denies any abdominal pain and has no focal abdominal tenderness on exam. She has already had a cholecystectomy. Specifically, Patient has no abdominal tenderness on exam and specifically no tenderness in the RLQ, LLQ, RUQ. Overall well hydrated on exam. Able to tolerate oral intake here in the emergency department. KUB without evidence of a bowel obstruction or bowel perforation again for which I had an overall low clinical suspicion. Low clinical suspicion for any acute life-threatening etiology based on exam and history including SBO, appendicitis , nephrolithiasis, or ACS. CMP without evidence of acute hepatitis or significant dehydration. At this time will discharge with return precautions and follow-up recommendations. Verbal discharge instructions given a the bedside and opportunity for questions given. Medication warnings reviewed. Patient is in agreement with this plan and has verbalized understanding of return precautions and the need for primary care follow-up in the next 24-72 hours. - Vital Signs Vital signs: Temp Pulse Resp BP Pulse Ox 97.7 F 99 16 142/71 H 100 11/11/16 23:04 11/11/16 23:04 11/12/16 03:01 11/12/16 03:01 11/12/16 03:01 - Laboratory Result Diagrams: 11/12/16 00:38 11/12/16 00:38 Laboratory results interpreted by me: 11/12/16 11/12/16 00:38 00:38 WBC 3.2 L RBC 3.69 L Hgb 11.6 L Hct 34.0 L RDW 15.1 H Sodium 147.9 H Carbon Dioxide 32 H Est GFR (Non-Af Amer) 55 L Glucose 128 H Total Protein 5.9 L - Diagnostic Test Radiology reviewed: Image reviewed, Reports reviewed Radiology results interpreted by me: 11/12/16 01:44 KUB: No evidence of bowel obstruction or perforation Discharge - Discharge Clinical Impression: Vomiting and diarrhea Condition: Good Disposition: HOME, SELF-CARE Additional Instructions: Your symptoms are likely due to a viral illness and should resolve in the next several days. Continue to stay hydrated with plenty of solution such as Gatorade or Pedialyte. You are being prescribed Zofran to take as needed for nausea and vomiting. Please return if you develop abdominal pain, pass out, become unable to tolerate any oral fluids for 12 more hours, or any other symptoms that are concerning to you. Referrals: MEGHANN STEELE JR, MD [Primary Care Provider] - Follow up in 3-5 days
[2016-11-12 00:47] LABS: ABSOLUTE EOSINOPHILS # (AUTO) 0.2 10^3/uL (0.0-0.6); ABSOLUTE LYMPHOCYTES (AUTO) 0.6 10^3/uL (0.5-4.7); ABSOLUTE MONOCYTES (AUTO) 0.4 10^3/uL (0.1-1.4); BASOPHILS % (AUTO) 0.5 % (0-2); EOSINOPHILS % (AUTO) 5.9 % (0-6); HEMOGLOBIN 11.6 g/dL (12.0-15.5); HGB HCT DIFFERENCE 0.8; LYMPHOCYTES % (AUTO) 19.7 % (13-45); MEAN CORPUSCULAR HEMOGLOBIN 31.4 pg (27.0-33.4); MEAN CORPUSCULAR VOLUME 92 fl (80-97); MONOCYTES % (AUTO) 12.2 % (3-13); RED BLOOD COUNT 3.69 10^6/uL (3.72-5.28); RED CELL DISTRIBUTION WIDTH 15.1 % (11.5-14.0); SEGMENTED NEUTROPHILS % (AUTO) 61.7 % (42-78); WHITE BLOOD COUNT 3.2 10^3/uL (4.0-10.5)
[2016-11-12 01:00] LABS: ALANINE AMINOTRANSFERASE 30 U/L (9-52); ALBUMIN 3.6 g/dL (3.5-5.0); ALKALINE PHOSPHATASE 67 U/L (38-126); ANION GAP 9 (5-19); ASPARTATE AMINO TRANSFERASE 28 U/L (14-36); BILIRUBIN,DIRECT 0.3 mg/dL (0.0-0.4); BILIRUBIN,TOTAL 0.4 mg/dL (0.2-1.3); BLOOD UREA NITROGEN 17 mg/dL (7-20); CALCIUM 9.2 mg/dL (8.4-10.2); CARBON DIOXIDE 32 mmol/L (22-30); CHLORIDE 107 mmol/L (98-107); CREATININE RESULT 0.99 mg/dL (0.52-1.25); GLUCOSE 128 mg/dL (75-110); LIPASE 41.4 U/L (23-300); POTASSIUM 4.5 mmol/L (3.6-5.0); SODIUM 147.9 mmol/L (137-145); TOTAL PROTEIN 5.9 g/dL (6.3-8.2)
[2016-11-12] MEDS ORDERED: ONDANSETRON ODT 4 MG TAB (6 TAB/DSPK) PO PRN (02:53)
[2016-11-12 08:54] VITALS: BP 138/68
== END 2016-11-12 08:54 | disposition home or self-care (01) ==
LOC: ER 22:57
DX: R11.2 Nausea with vomiting, unspecified (principal); R19.7 Diarrhea, unspecified; J44.9 Chronic obstructive pulmonary disease, unspecified; Z99.81 Dependence on supplemental oxygen; Z88.0 Allergy status to penicillin; Z88.3 Allergy status to other anti-infective agents; Z87.891 Personal history of nicotine dependence; I50.9 Heart failure, unspecified; I25.10 Atherosclerotic heart disease of native coronary artery without angina pectoris; I25.2 Old myocardial infarction; E78.00 Pure hypercholesterolemia, unspecified; I11.0 Hypertensive heart disease with heart failure; E03.9 Hypothyroidism, unspecified; Z90.49 Acquired absence of other specified parts of digestive tract; Z85.841 Personal history of malignant neoplasm of brain; Z85.118 Personal history of other malignant neoplasm of bronchus and lung
CPT/HCPCS: 99285; 36415; 83690; 85025; 80053; 74000; A9270

== ENCOUNTER 2016-11-14 14:20 | Emergency (ER) | payer MEDICARE, OTHER ==
[2016-11-14 14:55] LABS: ABSOLUTE EOSINOPHILS # (AUTO) 0.2 10^3/uL (0.0-0.6); ABSOLUTE LYMPHOCYTES (AUTO) 0.8 10^3/uL (0.5-4.7); ABSOLUTE MONOCYTES (AUTO) 0.5 10^3/uL (0.1-1.4); ABSOLUTE NEUT (AUTO) 3.3 10^3/uL (1.7-8.2); EOSINOPHILS % (AUTO) 4.9 % (0-6); HEMATOCRIT 34.1 % (36.0-47.0); HEMOGLOBIN 11.6 g/dL (12.0-15.5); HGB HCT DIFFERENCE 0.7; LYMPHOCYTES % (AUTO) 15.7 % (13-45); MEAN CORPUSCULAR HEMOGLOBIN 31.5 pg (27.0-33.4); MEAN CORPUSCULAR HGB CONC 34.1 g/dL (32.0-36.0); MEAN CORPUSCULAR VOLUME 92 fl (80-97); MONOCYTES % (AUTO) 10.7 % (3-13); RED CELL DISTRIBUTION WIDTH 14.9 % (11.5-14.0); SEGMENTED NEUTROPHILS % (AUTO) 67.7 % (42-78); WHITE BLOOD COUNT 4.9 10^3/uL (4.0-10.5)
[2016-11-14 15:16] LABS: ALANINE AMINOTRANSFERASE 34 U/L (9-52); ALBUMIN 3.6 g/dL (3.5-5.0); ALKALINE PHOSPHATASE 56 U/L (38-126); ANION GAP 10 (5-19); ASPARTATE AMINO TRANSFERASE 41 U/L (14-36); BILIRUBIN,DIRECT 0.4 mg/dL (0.0-0.4); BILIRUBIN,TOTAL 0.6 mg/dL (0.2-1.3); BLOOD UREA NITROGEN 20 mg/dL (7-20); CALCIUM 8.9 mg/dL (8.4-10.2); CARBON DIOXIDE 34 mmol/L (22-30); CHLORIDE 102 mmol/L (98-107); CREATININE RESULT 1.01 mg/dL (0.52-1.25); GLUCOSE 113 mg/dL (75-110); POTASSIUM 3.9 mmol/L (3.6-5.0); SODIUM 146.1 mmol/L (137-145); TOTAL PROTEIN 6.3 g/dL (6.3-8.2)
[2016-11-14] MEDS ORDERED: NORMAL SALINE 1000 ML 1,000 ML IV ONE (15:25)
[2016-11-14] MEDS ORDERED: ONDANSETRON HCL INJ/PF 4 MG/2 ML SDV IV ONE (15:25)
--- NOTE | 2016-11-14 15:27 | ER Document Report ---
ED GI/ - General Chief Complaint: Nausea/Vomiting Stated Complaint: VOMITING Notes: The patient is a 71-year-old female who presents with 1 day of nausea and vomiting 2 times. She is not having any abdominal pain and does not remember eating anything undercooked. She denies hematemesis, fevers, diarrhea, constipation, dysuria, flank pain, chest pain, shortness of breath or back pain. TRAVEL OUTSIDE OF THE [place] IN LAST 30 DAYS: No - Related Data Allergies/Adverse Reactions: amoxicillin [Amoxicillin] Allergy (Verified 11/14/16 14:48) amoxicillin trihydrate [From Augmentin] Allergy (Verified 11/14/16 14:48) erythromycin base [Erythromycin Base] Allergy (Verified 11/14/16 14:48) Potassium Clavulanate * [From Augmentin] Allergy (Verified 11/14/16 14:48) Past Medical History - General Information source: Patient - Social History Smoking Status: Unknown if Ever Smoked Family History: Malignancy - Lung cancer - Past Medical History Cardiac Medical History: Reports: Hx Congestive Heart Failure, Hx Coronary Artery Disease, Hx Heart Attack, Hx Hypercholesterolemia, Hx Hypertension Pulmonary Medical History: Reports: Hx Asthma, Hx COPD - Home O2 dependent, Hx Pneumonia Endocrine Medical History: Reports: Hx Hypothyroidism Renal/ Medical History: Denies: Hx Peritoneal Dialysis Malignancy Medical History: Reports: Hx Brain Cancer - Lung cancer with brain metastases, 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 Past Surgical History: Reports: Hx Cholecystectomy, Hx Orthopedic Surgery - Foot surgery - Immunizations Hx Diphtheria, Pertussis, Tetanus Vaccination: Yes Hx Pneumococcal Vaccination: 08/30/12 Review of Systems - Review of Systems Notes: REVIEW OF SYSTEMS: CONSTITUTIONAL: -fevers, -chills EENT: -eye pain, -difficulty swallowing, -nasal congestion CARDIOVASCULAR:-chest pain, -syncope. RESPIRATORY: -cough, -SOB GASTROINTESTINAL: -abdominal pain, +nausea, +vomiting, -diarrhea GENITOURINARY: -dysuria, -hematuria MUSCULOSKELETAL: -back pain, -neck pain SKIN: -rash or skin lesions. HEMATOLOGIC: -easy bruising or bleeding. LYMPHATIC: -swollen, enlarged glands. NEUROLOGICAL: -altered mental status or loss of consciousness, -headache, - neurologic symptoms PSYCHIATRIC: -anxiety, -depression. ALL OTHER SYSTEMS REVIEWED AND NEGATIVE. Physical Exam - Vital signs Vitals: Resp 14 11/14/16 14:33 - Notes Notes: PHYSICAL EXAMINATION: GENERAL: Well-appearing, well-nourished and in no acute distress. HEAD: Atraumatic, normocephalic. EYES: Pupils equal round and reactive to light, extraocular movements intact, sclera anicteric, conjunctiva are normal. ENT: nares patent, oropharynx clear without exudates. Moist mucous membranes. NECK: Normal range of motion, supple without lymphadenopathy LUNGS: Breath sounds clear to auscultation bilaterally and equal. No wheezes rales or rhonchi. HEART: Regular rate and rhythm without murmurs ABDOMEN: Soft, nontender, normoactive bowel sounds. No guarding, no rebound. No masses appreciated. EXTREMITIES: Normal range of motion, no pitting or edema. No cyanosis. NEUROLOGICAL: Cranial nerves grossly intact. Normal speech, normal gait. Normal sensory, motor, and reflex exams. PSYCH: Normal mood, normal affect. SKIN: Warm, Dry, normal turgor, no rashes or lesions noted. Course - Re-evaluation Re-evalutation: 11/14/16 18:53 Pt without any abdominal tenderness. Labs, including troponin, are all unremarkable. After Zofran and fluids, patient feels much better. She is drinking and eating in the emergency room without any nausea or vomiting and she appears well. Instructed patient about following up with primary care physician and return precautions. She understands. - Vital Signs Vital signs: Temp Pulse Resp BP Pulse Ox 98.1 F 17 124/73 99 11/14/16 14:48 11/14/16 19:02 11/14/16 19:02 11/14/16 19:01 - Laboratory Result Diagrams: 11/14/16 14:42 11/14/16 14:42 Laboratory results interpreted by me: 11/14/16 11/14/16 14:42 14:42 RBC 3.70 L Hgb 11.6 L Hct 34.1 L RDW 14.9 H Sodium 146.1 H Carbon Dioxide 34 H Est GFR (Non-Af Amer) 54 L Glucose 113 H AST 41 H Discharge - Discharge Clinical Impression: Nausea and vomiting Qualifiers: Vomiting type: unspecified Vomiting Intractability: non-intractable Qualified Code(s): R11.2 - Nausea with vomiting, unspecified Condition: Good Disposition: HOME, SELF-CARE Additional Instructions: VOMITING: Vomiting (or nausea without vomiting) can be caused by many other different problems. It can mean that something's wrong with the stomach, such as ulcers or inflammation or the intestinal tract, such as appendicitis. But it can also be a symptom of a problem that has nothing to do with the stomach or intestines. Vomiting is common with severe headaches, earaches, tonsillitis, and kidney infections, etc. We see it with pneumonia or heart attacks. Drugs can cause nausea and vomiting. Many abdominal problems cause vomiting; for example, gallstones, kidney stones, pancreatitis, and intestinal obstruction ( blocked bowels). In most cases, curing the vomiting depends on fixing the problem that caused it. For temporary relief, we may use an anti-nausea medicine. For home use, we can prescribe suppositories, chewable pills, pills that dissolve in the mouth, or liquid anti-nausea drugs. If the vomiting seems to be caused by a problem in the stomach, acid-suppressing drugs may be prescribed as well. It's important to avoid dehydration. Sip small amounts of clear liquids ( soft drinks, tea, broth, etc) . Try to take fluids frequently even if you are vomiting to prevent dehydration. Take increasing amounts of fluid and when liquids are being consumed successfully, advance to small amounts of bland food (toast, soups, mashed potatoes, etc.) until you are able to resume a regular diet. Avoid aspirin, tobacco, and alcohol. If the vomiting worsens, if the problem that's making you vomit worsens, or if there's evidence of bleeding in the stomach (such as black, tarry stool, or bloody or black vomit), you should return immediately. Also, return if abdominal pain worsens or becomes localized to one area or you develop high fever. Call your doctor if you aren't improved in 24 hours. VIRAL SYNDROME: The physician has diagnosed a viral infection. Viruses not only cause "colds," but can cause many different symptoms including generalized aching, fever, headache, cough, diarrhea, nausea, vomiting, and fatigue. The treatment, for the most part, is simply relief of symptoms. This means that antibiotics are usually not given. Rest, fluids, pain medications and, occasionally, medication for the specific symptoms that are most bothersome will be prescribed. Use good handwashing to avoid passing the virus to others. Shared toys should be cleaned with disinfectant. Clean the toilets, sinks, and counter surfaces in bathrooms. Launder clothing in hot water. Contact the physician if you develop any new or unusual symptoms such as severe headache, stiff neck, high fever, chest pain, productive cough, or shortness of breath. You should be rechecked if you don't see marked improvement within seven to 10 days. INTRAVENOUS (I V) FLUIDS: As part of your care today, you received intravenous (IV) fluids. IV fluids are administered to patients who are dehydrated or to those who have certain chemical (electrolyte) abnormalities that need correcting. ANTINAUSEA MEDICATION: You have been given a medication to suppress nausea and vomiting. This type of medication can be given as a shot, pill, or suppository. It will usually last for many hours. Pills and shots usually last six to eight hours. For the typical illness, only one or two doses of the medication may be necessary. Mild lightheadedness may occur. This type of medicine can cause drowsiness. Do not drive or operate dangerous machinery while under its influence. Do not mix with alcohol. See your doctor at once if you have muscle spasms or tightness, or uncontrollable motions (particularly of the neck, mouth, or jaw). Persistent vomiting or severe lightheadedness should also be evaluated by the physician. FOLLOW-UP CARE: If you have been referred to a physician for follow-up care, call the physician s office for an appointment as you were instructed or within the next two days. If you experience worsening or a significant change in your symptoms, notify the physician immediately or return to the Emergency Department at any time for re-evaluation. Prescriptions: Ondansetron [Zofran Odt 4 mg Tablet] 1 - 2 tab PO Q4H PRN #15 tab.rapdis PRN Reason: For Nausea/Vomiting Referrals: MEGHANN STEELE JR, MD [Primary Care Provider] - Follow up as needed
[2016-11-14 16:37] LABS: APPEARANCE,URINE SLIGHTLY-CLOUDY; BILIRUBIN,URINE NEGATIVE (NEGATIVE); GLUCOSE, URINE NEGATIVE (NEGATIVE); KETONES,URINE NEGATIVE (NEGATIVE); LEUKOCYTE ESTERASE,URINE NEGATIVE (NEGATIVE); NITRITE,URINE NEGATIVE (NEGATIVE); PROTEIN,URINE NEGATIVE (NEGATIVE); URINE SPECIFIC GRAVITY 1.012; UROBILINOGEN,URINE NEGATIVE mg/dL (<2.0)
--- NOTE | 2016-11-14 19:02 | EKG REPORT ---
SEVERITY:- ABNORMAL ECG - SINUS RHYTHM RIGHT BUNDLE BRANCH BLOCK : Confirmed by: Mercedes Solomon 14-Nov-2016 19:01:20
[2016-11-14 19:14] VITALS: BP 124/73
== END 2016-11-14 19:33 | disposition home or self-care (01) ==
LOC: ER 14:20
DX: R11.2 Nausea with vomiting, unspecified (principal); I50.9 Heart failure, unspecified; E78.00 Pure hypercholesterolemia, unspecified; I25.10 Atherosclerotic heart disease of native coronary artery without angina pectoris; I11.0 Hypertensive heart disease with heart failure; E03.9 Hypothyroidism, unspecified; J44.9 Chronic obstructive pulmonary disease, unspecified; Z88.3 Allergy status to other anti-infective agents; Z88.0 Allergy status to penicillin; Z90.49 Acquired absence of other specified parts of digestive tract; Z99.81 Dependence on supplemental oxygen; Z85.118 Personal history of other malignant neoplasm of bronchus and lung; Z85.841 Personal history of malignant neoplasm of brain; I25.2 Old myocardial infarction
CPT/HCPCS: 93005; 99284; 96374; 36415; 85025; 80053; 81001; 84484; 93010; J2405; J7030

== ENCOUNTER 2016-12-08 01:34 | Inpatient (IN) | payer MEDICARE, OTHER ==
[2016-12-08] MEDS ORDERED: IPRATROPIUM/ALBUTEROL 0.5-2.5 MG/3 ML AMPUL NEB ONE (01:41)
[2016-12-08] MEDS ORDERED: METHYLPREDNISOLONE INJ 125 MG/2 ML SDV IV ONE (01:41)
--- NOTE | 2016-12-08 01:46 | ER Document Report ---
ED General - General Stated Complaint: NAUSEA Time Seen by Provider: 12/08/16 01:40 Notes: Patient is a 71 year old female who presents for complaints of difficulty breathing. Patient is a history of COPD 2 through. She is a former smoker. She said today she was playing bingo and many people around her smoking at the bingo [place]. Start short of breath and start having wheezing and therefore called ambulance and was brought to ER. No chest pain. No fevers. She did have pneumonia one month ago. No other complaints at this time. TRAVEL OUTSIDE OF THE [place] IN LAST 30 DAYS: No - Related Data Allergies/Adverse Reactions: amoxicillin [Amoxicillin] Allergy (Verified 11/14/16 14:48) amoxicillin trihydrate [From Augmentin] Allergy (Verified 11/14/16 14:48) erythromycin base [Erythromycin Base] Allergy (Verified 11/14/16 14:48) Potassium Clavulanate * [From Augmentin] Allergy (Verified 11/14/16 14:48) Past Medical History - Social History Smoking Status: Former Smoker Frequency of alcohol use: None Drug Abuse: None Family History: Malignancy - Lung cancer - Past Medical History Cardiac Medical History: Reports: Hx Congestive Heart Failure, Hx Coronary Artery Disease, Hx Heart Attack, Hx Hypercholesterolemia, Hx Hypertension Pulmonary Medical History: Reports: Hx Asthma, Hx COPD - Home O2 dependent, Hx Pneumonia Endocrine Medical History: Reports: Hx Hypothyroidism Renal/ Medical History: Denies: Hx Peritoneal Dialysis Malignancy Medical History: Reports: Hx Brain Cancer - Lung cancer with brain metastases, 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 Past Surgical History: Reports: Hx Cholecystectomy, Hx Orthopedic Surgery - Foot surgery - Immunizations Hx Diphtheria, Pertussis, Tetanus Vaccination: Yes Hx Pneumococcal Vaccination: 08/30/12 Review of Systems - Review of Systems Notes: My Normal Review Basic REVIEW OF SYSTEMS: CONSTITUTIONAL : Denies fever, chills, or sweats. Denies recent illness. EENT: Denies eye, ear, throat, or mouth pain or symptoms. Denies nasal or sinus congestion. CARDIOVASCULAR: Denies chest pain. RESPIRATORY: Wheezing and difficulty breathing. GASTROINTESTINAL: Denies abdominal pain. Denies nausea, vomiting, or diarrhea. Denies constipation. Last BM: MUSCULOSKELETAL: Denies neck or back pain or joint pain or swelling. SKIN: Denies rash or skin lesions. HEMATOLOGIC : Denies easy bruising or bleeding. LYMPHATIC: Denies swollen, enlarged glands. NEUROLOGICAL: Denies altered mental status or loss of consciousness. Denies headache. Denies weakness or paralysis or loss of use of either side. Denies problems with gait or speech. Denies sensory or motor loss. ALL OTHER SYSTEMS REVIEWED AND NEGATIVE. Physical Exam - Vital signs Vitals: Pulse Ox 98 12/08/16 01:43 - Notes Notes: General Appearance: Well nourished, alert, cooperative, mild to moderate acute distress, no obvious discomfort. Able to speak in full sentences. Vitals: reviewed, See vital signs table. Head: no swelling or tenderness to the head Eyes: PERRL, EOMI, Conjuctiva clear Mouth: No decreasd moisture Lungs: Diffuse wheezing, No rales, No rhonci, moderate accessory muscle use, fair air exchange bilaterally. Heart: Tachycardic rate, Regular rythm, No murmur, no rub Abdomen: Normal BS, soft, No rigidity, No abdominal tenderness, No guarding, no rebound, no abdominal masses, no organomegaly Extremities: strength 5/5 in all extremities, good pulses in all extremities, no swelling or tenderness in the extremities, no edema. Skin: warm, dry, appropriate color, no rash Neuro: speech clear, oriented x 3, normal affect, responds appropriately to questions. Course - Vital Signs Vital signs: Temp Pulse Resp BP Pulse Ox 98.4 F 114 H 24 H 125/71 98 12/08/16 01:46 12/08/16 01:46 12/08/16 01:46 12/08/16 05:01 12/08/16 05:01 - Laboratory Result Diagrams: 12/08/16 02:18 12/08/16 02:18 Laboratory results interpreted by me: 12/08/16 12/08/16 12/08/16 02:18 02:18 02:18 RBC 3.47 L Hgb 10.9 L Hct 32.5 L RDW 14.1 H Monocytes % 13.3 H VBG HCO3 33.4 H Sodium 133.3 L Potassium 3.5 L Chloride 95 L Glucose 309 H Total Protein 5.9 L Albumin 3.3 L - Transfer of Care Notes: 12/08/16 05:49 Patient has what appears be a COPD exacerbation most likely was triggered by being around a bunch of smokers at the [facility]. She continues to have wheezing. She continues have some tachypnea. She does have history of COPD. Chest x-ray does not show any pneumonia. At this time I feel is appropriate to admit the patient for further treatment of her COPD being that she still has some tachypnea and wheezing. I did speak with the hospitalist who agrees to admit the patient. Dictation of this chart was performed using voice recognition software; therefore, there may be some unintended grammatical errors. Discharge - Discharge Clinical Impression: COPD exacerbation Condition: Stable Disposition: ADMITTED OBSERVATION Admitting Provider: Hospitalist Unit Admitted: Telemetry
[2016-12-08] MEDS: MAGNESIUM SULFATE/D5W 100 ML IV SCH ×2 (01:59→02:27)
[2016-12-08 02:29] LABS: VENOUS BLOOD BASE EXCESS 6.5 mmol/L; VENOUS BLOOD HCO3 33.4 mmol/L (20-32); VENOUS BLOOD PCO2 59.3 mmHg (35-63); VENOUS BLOOD PH 7.37 (7.30-7.42)
[2016-12-08 02:31] LABS: ABSOLUTE EOSINOPHILS # (AUTO) 0.1 10^3/uL (0.0-0.6); ABSOLUTE LYMPHOCYTES (AUTO) 1.4 10^3/uL (0.5-4.7); ABSOLUTE MONOCYTES (AUTO) 1.1 10^3/uL (0.1-1.4); BASOPHILS % (AUTO) 0.3 % (0-2); EOSINOPHILS % (AUTO) 0.7 % (0-6); HEMATOCRIT 32.5 % (36.0-47.0); HEMOGLOBIN 10.9 g/dL (12.0-15.5); HGB HCT DIFFERENCE 0.2; LYMPHOCYTES % (AUTO) 16.1 % (13-45); MEAN CORPUSCULAR HEMOGLOBIN 31.3 pg (27.0-33.4); MEAN CORPUSCULAR HGB CONC 33.4 g/dL (32.0-36.0); MEAN CORPUSCULAR VOLUME 94 fl (80-97); MONOCYTES % (AUTO) 13.3 % (3-13); RED BLOOD COUNT 3.47 10^6/uL (3.72-5.28); RED CELL DISTRIBUTION WIDTH 14.1 % (11.5-14.0); SEGMENTED NEUTROPHILS % (AUTO) 69.6 % (42-78); WHITE BLOOD COUNT 8.6 10^3/uL (4.0-10.5)
[2016-12-08 02:43] LABS: ALANINE AMINOTRANSFERASE 31 U/L (9-52); ALBUMIN 3.3 g/dL (3.5-5.0); ALKALINE PHOSPHATASE 69 U/L (38-126); ANION GAP 8 (5-19); ASPARTATE AMINO TRANSFERASE 23 U/L (14-36); BILIRUBIN,DIRECT 0.3 mg/dL (0.0-0.4); BILIRUBIN,TOTAL 0.6 mg/dL (0.2-1.3); BLOOD UREA NITROGEN 16 mg/dL (7-20); CALCIUM 8.5 mg/dL (8.4-10.2); CARBON DIOXIDE 30 mmol/L (22-30); CHLORIDE 95 mmol/L (98-107); CREATINE KINASE 132 U/L (30-135); CREATININE RESULT 0.92 mg/dL (0.52-1.25); GLUCOSE 309 mg/dL (75-110); POTASSIUM 3.5 mmol/L (3.6-5.0); SODIUM 133.3 mmol/L (137-145); TOTAL PROTEIN 5.9 g/dL (6.3-8.2)
[2016-12-08 02:55] LABS: CREATINE KINASE MB 1.68 ng/mL (<4.55)
[2016-12-08 02:56] LABS: TROPONIN I < 0.012 ng/mL
[2016-12-08] MEDS ORDERED: ALBUTEROL SULFATE 0.083% NEB 2.5 MG/3 ML AMPUL NEB ONE (03:22)
[2016-12-08] MEDS ORDERED: ACETAMINOPHEN 325 MG TABLET PO PRN (04:24)
[2016-12-08] MEDS ORDERED: DEXTROSE 50%-WATER 25 GM/50 ML DISP.SYRIN IV PRN ×2 (04:25)
[2016-12-08] MEDS ORDERED: IPRATROPIUM/ALBUTEROL 0.5-2.5 MG/3 ML AMPUL NEB PRN (04:25)
[2016-12-08] MEDS ORDERED: GLUCAGON,HUMAN RECOMB 1 MG INJ IM PRN (04:25)
[2016-12-08] MEDS ORDERED: DEXTROSE 40% GEL 15 GM TUBE PO PRN ×2 (04:25)
[2016-12-08] MEDS: PREDNISONE 10 MG TABLET PO SCH ×2 (05:47→16:52)
[2016-12-08] MEDS: LANSOPRAZOLE 30 MG TAB.RAP.DR PO SCH (05:50)
[2016-12-08] MEDS: HEPARIN SOD (PORCINE) 5,000 UNIT/ML 1 ML SYRINGE SUBCUT SCH ×3 (05:50→21:23)
[2016-12-08] MEDS: IPRATROPIUM BROMIDE 0.02% NEB 0.5 MG/2.5 ML AMPUL NEB SCH ×3 (05:55→19:32)
[2016-12-08] MEDS ORDERED: CHLORPHENIRAMINE MALEATE 4 MG TABLET PO PRN (06:08)
[2016-12-08] MEDS: LEVALBUTEROL HCL NEB 1.25 MG/3 ML AMPUL NEB SCH ×3 (06:11→19:32)
--- NOTE | 2016-12-08 06:21 | PDOC H&P ---
History of Present Illness Admission Date/PCP: 12/08/16 04:25 Patient complains of: Shortness of breath and cough History of Present Illness: TRENTON MCCOY is a 71 year old female with a past medical history of home oxygen dependent COPD, right-sided lung mass, congestive heart failure, diabetes and chronic anemia. Who been her usual state of health until approximately 1 week ago noted to have exceptional rhinorrhea postnasal drip and nonproductive cough. She was brought to the emergency room for evaluation and found to have rhonchi audible at bedside, she started on empiric antibiotics referred to the hospitalist for admission. She denies recent antibiotics, change in medications or ill contacts. Past Medical History Cardiac Medical History: Reports: Congestive Heart Failure, Coronary Artery Disease, Myocardial Infarction, Hyperlipidema, Hypertension Pulmonary Medical History: Reports: Asthma, Chronic Obstructive Pulmonary Disease (COPD) - Home O2 dependent, Pneumonia Endocrine Medical History: Reports: Hypothyroidism Malignancy Medical History: Reports: Brain Cancer - Lung cancer with brain metastases, 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 Past Surgical History Past Surgical History: Reports: Cholecystectomy, Orthopedic Surgery - Foot surgery Social History Smoking Status: Former Smoker Frequency of Alcohol Use: None Hx Recreational Drug Use: No Drugs: None Hx Prescription Drug Abuse: No - Advance Directive Resuscitation Status: Full Code Family History Family History: Malignancy - Lung cancer Parental Family History Reviewed: Yes Children Family History Reviewed: Yes Sibling(s) Family History Reviewed.: Yes Medication/Allergy Home Medications: Aspirin [Aspirin 81 mg Chewable Tablet] 81 mg PO DAILY 06/09/15 Tiotropium [place] [Spiriva Handihaler 18 mcg/dose (30 Dose)] 1 cap IH DAILY 05/14 Furosemide [Lasix 20 mg Tablet] 20 mg PO DAILY 06/11/15 Docusate Sodium [Colace 100 mg Capsule] 100 mg PO DAILY #30 capsule 03/27/16 Albuterol Sulfate [Proair HFA Inhalation Aerosol 8.5 gm MDI] 1 puff IH Q4HP PRN 09/05/16 Esomeprazole Mag Trihydrate [Nexium] 40 mg PO DAILY 09/05/16 Fluticasone/Salmeterol [Advair 500-50 Diskus 28 Dose] 1 inh IH Q12 09/05/16 Levothyroxine Sodium [Synthroid] 50 mcg PO DAILY 09/05/16 Acetaminophen [Tylenol 325 mg Tablet] 650 mg PO Q4HP PRN tablet 09/08/16 Albuterol Sulfate [Ventolin 0.083% Neb 2.5 mg/3 mL Ampul] 2.5 mg NEB RTQ6HP PRN #60 vial.neb 09/08/16 Levofloxacin [Levaquin 750 mg Tablet] 750 mg PO DAILY #5 tablet 09/08/16 Ondansetron [Zofran Odt 4 mg Tablet] 1 - 2 tab PO Q4HP PRN #20 tab.rapdis Potassium Chloride [Klor-Con 10 Meq Tablet.sa] 10 meq PO DAILY #30 tablet.sa 04/16 Prednisone [Deltasone 20 mg Tablet] 40 mg PO DAILY #7 tablet 09/08/16 Levalbuterol Tartrate [Xopenex Hfa] 15 gm IH Q4H PRN #1 hfa.aer.ad 09/28/16 Levofloxacin [Levaquin 500 mg Tablet] 500 mg PO DAILY #7 tablet 09/28/16 Magnesium Citrate [Citrate of Magnesia 296 ml Bottle] 296 ml PO DAILY #1 bottle 09/28/16 Prednisone [Deltasone 20 mg Tablet] 3 tab PO DAILY 5 Days 09/28/16 Ondansetron [Zofran Odt 4 mg Tablet] 1 - 2 tab PO Q4H PRN #15 tab.rapdis Allergies/Adverse Reactions: amoxicillin [Amoxicillin] Allergy (Verified 11/14/16 14:48) amoxicillin trihydrate [From Augmentin] Allergy (Verified 11/14/16 14:48) erythromycin base [Erythromycin Base] Allergy (Verified 11/14/16 14:48) Potassium Clavulanate * [From Augmentin] Allergy (Verified 11/14/16 14:48) Review of Systems Constitutional: PRESENT: chills, fatigue, fever(s), weakness Eyes: ABSENT: visual disturbances Ears: ABSENT: hearing changes Cardiovascular: ABSENT: chest pain, dyspnea on exertion, edema, orthropnea, palpitations Respiratory: PRESENT: cough, dyspnea. ABSENT: hemoptysis, sputum Gastrointestinal: ABSENT: abdominal pain, constipation, diarrhea, hematemesis, hematochezia, nausea, vomiting Genitourinary: ABSENT: dysuria, hematuria Musculoskeletal: ABSENT: joint swelling Integumentary: ABSENT: rash, wounds Neurological: ABSENT: abnormal gait, abnormal speech, confusion, dizziness, focal weakness, syncope Psychiatric: ABSENT: anxiety, depression, homidical ideation, suicidal ideation Endocrine: ABSENT: cold intolerance, heat intolerance, polydipsia, polyuria Hematologic/Lymphatic: ABSENT: easy bleeding, easy bruising Physical Exam Vital Signs: Temp Pulse Resp BP Pulse Ox 98.4 F 114 H 24 H 125/71 98 12/08/16 01:46 12/08/16 01:46 12/08/16 01:46 12/08/16 05:01 12/08/16 05:01 General appearance: PRESENT: cooperative, mild distress Head exam: PRESENT: atraumatic, normocephalic Eye exam: PRESENT: conjunctiva pink, EOMI, PERRLA. ABSENT: scleral icterus Ear exam: PRESENT: normal external ear exam Mouth exam: PRESENT: moist, tongue midline Neck exam: ABSENT: carotid bruit, JVD, lymphadenopathy, thyromegaly Respiratory exam: PRESENT: accessory muscle use, crackles, prolonged expiratory phas, rales, retraction, rhonchi, symmetrical, tachypnea. ABSENT: chest wall tenderness Cardiovascular exam: PRESENT: RRR. ABSENT: diastolic murmur, rubs, systolic murmur Pulses: PRESENT: normal dorsalis pedis pul Vascular exam: PRESENT: normal capillary refill GI/Abdominal exam: PRESENT: hypoactive bowel sounds, normal bowel sounds, soft. ABSENT: distended, guarding, mass, organolmegaly, rebound, tenderness Rectal exam: PRESENT: deferred Extremities exam: PRESENT: full ROM, +1 edema - Left leg erythema and edema no open ulcer. ABSENT: calf tenderness, clubbing, pedal edema Neurological exam: PRESENT: alert, awake, oriented to person, oriented to place , oriented to time, oriented to situation, CN II-XII grossly intact. ABSENT: motor sensory deficit Psychiatric exam: PRESENT: appropriate affect, normal mood. ABSENT: homicidal ideation, suicidal ideation Skin exam: PRESENT: dry, erythema - Left leg, intact, warm. ABSENT: cyanosis, rash Results Impressions: Chest X-Ray 12/08/16 01:40 IMPRESSION: No acute cardiopulmonary findings. Assessment & Plan - Diagnosis (1) Pneumonia Qualifiers: Pneumonia type: due to unspecified organism Laterality: unspecified laterality Lung location: unspecified part of lung Qualified Code(s): J18.9 - Pneumonia, unspecified organism Is this a current diagnosis for this admission?: YesPlan: Acute problem Patient gives a history of recent URI with clinical pneumonia on exam. She is admitted to a monitored bed with a pneumonia care set and empiric antibiotics with chlorpheniramine, Flonase, albuterol and Atrovent. Follow-up CBC, chemistry and blood culture (2) COPD exacerbation Plan: Albuterol, Atrovent, incentive spirometry and flutter valve (3) Anemia Is this a current diagnosis for this admission?: YesPlan: Chronic problem Likely anemia of chronic disease will evaluate with anemia studies (4) Diabetes Qualifiers: Diabetes mellitus type: type 1 Is this a current diagnosis for this admission?: YesPlan: Diabetic diet, Humalog sliding scale 4 times a day before meals - Time Time Spent: 50 to 70 Minutes - Inpatient Certification Medical Necessity: Need Close Monitoring Due to Risk of Patient Decompensation
[2016-12-08] MEDS: INSULIN LISPRO 100 UNIT/ML 3 ML VIAL SUBCUT PRN ×3 (08:32→16:52)
[2016-12-08] MEDS: ASPIRIN 81 MG TABLET, CHEWABLE PO SCH (09:08)
[2016-12-08] MEDS: POTASSIUM CHLORIDE 10 MEQ TABLET.SA PO SCH (09:08)
[2016-12-08] MEDS: DOCUSATE SODIUM 100 MG CAPSULE PO SCH (09:08)
[2016-12-08] MEDS: GUAIFENESIN 600 MG TABLET.SA PO SCH ×2 (09:09→21:24)
[2016-12-08] MEDS: CEFTRIAXONE 1 GM/D5W RTU 50 ML IV SCH (09:24)
[2016-12-08] MEDS ORDERED: AZITHROMYCIN 500 MG in DEXTROSE 5%-WATER 250 ML IV SCH (10:00)
[2016-12-08] MEDS ORDERED: LEVOTHYROXINE SODIUM 0.05 MG TABLET PO SCH (10:00)
[2016-12-08] MEDS ORDERED: TIOTROPIUM BROMIDE DPI 5 CAP/KIT (18 MCG/CAP) IH SCH (10:00)
[2016-12-08] MEDS ORDERED: MAGNESIUM CITRATE 296 ML BOTTLE PO SCH (10:00)
[2016-12-08] MEDS: FLUTICASONE/SALMETEROL DISKUS 500-50 MCG/DOSE IH SCH ×2 (10:20→21:23)
[2016-12-08] MEDS: FLUTICASONE NASAL SPRAY 50 MCG/SPRY 120 SPRAY/16 GM NASL SCH ×2 (10:21→21:23)
--- NOTE | 2016-12-08 12:56 | PDOC PROGRESS REPORT ---
Subjective Progress Note for:: 12/08/16 Subjective:: Complains of productive cough Physical Exam Vital Signs: Temp Pulse Resp BP Pulse Ox 97.8 F 114 H 22 H 120/74 98 12/08/16 12:15 12/08/16 01:46 12/08/16 12:01 12/08/16 12:01 12/08/16 12:01 General appearance: PRESENT: no acute distress Eye exam: PRESENT: conjunctiva pink. ABSENT: scleral icterus Mouth exam: PRESENT: moist, tongue midline Neck exam: ABSENT: JVD Respiratory exam: PRESENT: rhonchi - Coarse rhonchi bilaterally worse on the right., wheezes - Mild expiratory wheezes.. ABSENT: rales Cardiovascular exam: PRESENT: RRR. ABSENT: diastolic murmur, rubs, systolic murmur GI/Abdominal exam: PRESENT: normal bowel sounds, soft. ABSENT: distended, guarding, mass, organolmegaly, rebound, tenderness Extremities exam: ABSENT: calf tenderness, clubbing, pedal edema Neurological exam: PRESENT: alert, awake, oriented to person, oriented to place , oriented to time, oriented to situation, CN II-XII grossly intact. ABSENT: motor sensory deficit Psychiatric exam: PRESENT: appropriate affect Skin exam: PRESENT: dry, intact, warm. ABSENT: cyanosis, rash Results Impressions: Chest X-Ray 12/08/16 01:40 IMPRESSION: No acute cardiopulmonary findings. Assessment & Plan - Diagnosis (1) Acute hypoxemic respiratory failure Is this a current diagnosis for this admission?: YesPlan: This is secondary to pneumonia. (2) Pneumonia Qualifiers: Pneumonia type: due to unspecified organism Laterality: unspecified laterality Lung location: unspecified part of lung Qualified Code(s): J18.9 - Pneumonia, unspecified organism Is this a current diagnosis for this admission?: YesPlan: Clinically the patient has pneumonia and is on Rocephin and Zithromax initially. Zithromax will be held secondary to erythromycin allergy. (3) COPD exacerbation Is this a current diagnosis for this admission?: YesPlan: She received Solu-Medrol initially and is now on prednisone. We'll continue also with nebulizers. (4) Anemia Is this a current diagnosis for this admission?: Yes (5) Diabetes Qualifiers: Diabetes mellitus type: type 1 Is this a current diagnosis for this admission?: Yes (6) Full code status Is this a current diagnosis for this admission?: Yes (7) GERD (gastroesophageal reflux disease) Qualifiers: Esophagitis presence: esophagitis presence not specified Qualified Code (s): K21.9 - Gastro-esophageal reflux disease without esophagitis Is this a current diagnosis for this admission?: Yes (8) Hypertension Qualifiers: Hypertension type: essential hypertension Qualified Code(s): I10 - Essential (primary) hypertension Is this a current diagnosis for this admission?: Yes (9) Obesity Qualifiers: Obesity type: with alveolar hypoventilation Is this a current diagnosis for this admission?: Yes - Time Time Spent with patient: 25-34 minutes - Inpatient Certification Medical Necessity: Need for IV Antibiotics
--- NOTE | 2016-12-08 13:53 | EKG REPORT ---
SEVERITY:- ABNORMAL ECG - SINUS TACHYCARDIA PROBABLE LEFT ATRIAL ABNORMALITY RIGHT BUNDLE BRANCH BLOCK : Confirmed by: Mercedes Solomon 08-Dec-2016 13:53:17
[2016-12-08] MEDS ORDERED: OXYCODONE-ACETAMINOPHEN 5-325 MG TABLET PO PRN (14:25)
[2016-12-09] MEDS: LEVALBUTEROL HCL NEB 1.25 MG/3 ML AMPUL NEB SCH ×3 (02:25→14:03)
[2016-12-09] MEDS: IPRATROPIUM BROMIDE 0.02% NEB 0.5 MG/2.5 ML AMPUL NEB SCH ×3 (02:25→14:03)
[2016-12-09 04:45] LABS: ABSOLUTE LYMPHOCYTES (AUTO) 0.5 10^3/uL (0.5-4.7); ABSOLUTE MONOCYTES (AUTO) 0.6 10^3/uL (0.1-1.4); ABSOLUTE NEUT (AUTO) 5.8 10^3/uL (1.7-8.2); BASOPHILS % (AUTO) 0.4 % (0-2); HEMATOCRIT 32.3 % (36.0-47.0); HGB HCT DIFFERENCE 0.7; LYMPHOCYTES % (AUTO) 7.4 % (13-45); MEAN CORPUSCULAR HEMOGLOBIN 31.2 pg (27.0-33.4); MEAN CORPUSCULAR HGB CONC 33.9 g/dL (32.0-36.0); MEAN CORPUSCULAR VOLUME 92 fl (80-97); MONOCYTES % (AUTO) 9.2 % (3-13); RED BLOOD COUNT 3.51 10^6/uL (3.72-5.28); RED CELL DISTRIBUTION WIDTH 14.4 % (11.5-14.0); WHITE BLOOD COUNT 6.9 10^3/uL (4.0-10.5)
[2016-12-09 05:01] LABS: ANION GAP 10 (5-19); BLOOD UREA NITROGEN 21 mg/dL (7-20); CALCIUM 9.3 mg/dL (8.4-10.2); CARBON DIOXIDE 30 mmol/L (22-30); CHLORIDE 103 mmol/L (98-107); GLUCOSE 141 mg/dL (75-110); POTASSIUM 4.9 mmol/L (3.6-5.0); SODIUM 143.3 mmol/L (137-145)
[2016-12-09] MEDS: LANSOPRAZOLE 30 MG TAB.RAP.DR PO SCH (05:58)
[2016-12-09] MEDS: PREDNISONE 10 MG TABLET PO SCH (05:58)
[2016-12-09] MEDS: HEPARIN SOD (PORCINE) 5,000 UNIT/ML 1 ML SYRINGE SUBCUT SCH (05:58)
[2016-12-09] MEDS ORDERED: LEVOTHYROXINE SODIUM 0.05 MG TABLET PO SCH (06:00)
[2016-12-09] MEDS: ASPIRIN 81 MG TABLET, CHEWABLE PO SCH (10:54)
[2016-12-09] MEDS: POTASSIUM CHLORIDE 10 MEQ TABLET.SA PO SCH (10:54)
[2016-12-09] MEDS: GUAIFENESIN 600 MG TABLET.SA PO SCH (10:54)
[2016-12-09] MEDS: DOCUSATE SODIUM 100 MG CAPSULE PO SCH (10:54)
[2016-12-09] MEDS: FLUTICASONE/SALMETEROL DISKUS 500-50 MCG/DOSE IH SCH (10:55)
[2016-12-09] MEDS: FLUTICASONE NASAL SPRAY 50 MCG/SPRY 120 SPRAY/16 GM NASL SCH (10:55)
[2016-12-09] MEDS: CEFTRIAXONE 1 GM/D5W RTU 50 ML IV SCH (10:56)
--- NOTE | 2016-12-09 13:40 | PDOC DISCHARGE SUMMARY ---
General - Admit/Disc Date/PCP Admission Date/Primary Care Provider: 12/08/16 04:25 Discharge Date: 12/09/16 - Discharge Diagnosis (1) Acute hypoxemic respiratory failure Is this a current diagnosis for this admission?: YesSummary: Secondary to acute COPD exacerbation and possible pneumonia. (2) Pneumonia Is this a current diagnosis for this admission?: YesSummary: Patient does not have any obvious infiltrate on chest x-ray although clinically she did have it. (3) COPD exacerbation Is this a current diagnosis for this admission?: YesSummary: Being sent home on a steroid taper. (4) Anemia Is this a current diagnosis for this admission?: Yes (5) Diabetes Is this a current diagnosis for this admission?: Yes (6) Full code status Is this a current diagnosis for this admission?: Yes (7) GERD (gastroesophageal reflux disease) Is this a current diagnosis for this admission?: Yes (8) Hypertension Is this a current diagnosis for this admission?: Yes (9) Obesity Is this a current diagnosis for this admission?: Yes - Additional Information Resuscitation Status: Full Code Discharge Diet: Cardiac, Diabetic Discharge Activity: Activity As Tolerated Home Medications: Acetaminophen 325 mg PO TIDP PRN 12/08/16 Albuterol Sulfate [Albuterol Sulfate 2.5mg/3 mL] 1 vial IH RTQ6HP PRN 12/08/16 Aspirin [Aspirin 81 mg Chewable Tablet] 81 mg PO DAILY 12/08/16 Docusate Sodium [Colace 100 mg Capsule] 100 mg PO DAILY 12/08/16 Furosemide [Lasix] 40 mg PO DAILY 12/08/16 Lansoprazole [Prevacid] 15 mg PO DAILY 12/08/16 Levalbuterol Tartrate [Xopenex Hfa] 2 puff IH Q6HP PRN 12/08/16 Levothyroxine Sodium [Synthroid 0.05 mg Tablet] 50 mcg PO DAILY 12/08/16 Oxycodone HCl/Acetaminophen [Percocet 5-325 mg Tablet] 1 tab PO TIDP PRN Polyethylene Glycol 3350 [Miralax Powder 17 gm/Packet] 1 packet PO DAILY Tiotropium [place] [Spiriva Handihaler 18 mcg/dose (30 Dose)] 1 cap IH DAILY 06/16 Cefuroxime [place] [Ceftin 500 mg Tablet] 1 tab PO BID #14 tablet 12/09/16 Fluticasone/Salmeterol [Advair 500-50 Diskus 14 Dose/Diskus] 1 inh IH Q12 #1 inhaler 12/09/16 Potassium Chloride [Klor-Con 10 Meq Tablet.sa] 10 meq PO DAILY #30 tablet.sa 07/16 Prednisone [Deltasone 10 mg Tablet] 10 mg PO DAILY #39 tablet 12/09/16 History of Present Illness History of Present Illness: TRENTON MCCOY is a 71 year old female Hospital Course Hospital Course: The patient presented with shortness of breath and a productive cough. The patient was found to have an acute COPD exacerbation and had inspiratory rales on exam suggestive of pneumonia. Patient was started on Rocephin and steroids. She had quick improvement in her breathing status. On the day of discharge she was back to her baseline was assisted that she needed to go home. Patient will be sent home on Ceftin and prednisone taper. Her other medical problems were stable during this hospitalization. Physical Exam Vital Signs: Temp Pulse Resp BP Pulse Ox 97.9 F 97 20 132/69 H 99 12/09/16 11:59 12/09/16 11:59 12/09/16 11:59 12/09/16 11:59 12/09/16 11:59 Intake & Output 12/08/16 12/09/16 12/10/16 06:59 06:59 06:59 Intake Total 479 458 Output Total 700 200 Balance -221 258 Weight 90.8 kg General appearance: PRESENT: no acute distress Eye exam: PRESENT: conjunctiva pink. ABSENT: scleral icterus Ear exam: PRESENT: normal external ear exam Neck exam: ABSENT: JVD Respiratory exam: PRESENT: wheezes - Few scattered expiratory wheezes. ABSENT: rales, rhonchi Cardiovascular exam: PRESENT: RRR. ABSENT: diastolic murmur, rubs, systolic murmur GI/Abdominal exam: PRESENT: normal bowel sounds, soft. ABSENT: distended, guarding, mass, organolmegaly, rebound, tenderness Extremities exam: ABSENT: calf tenderness, clubbing, pedal edema Neurological exam: PRESENT: alert, awake, oriented to person, oriented to place , oriented to time, oriented to situation, CN II-XII grossly intact. ABSENT: motor sensory deficit Psychiatric exam: PRESENT: appropriate affect Skin exam: PRESENT: dry, intact, warm. ABSENT: cyanosis, rash Results Laboratory Results: 12/09/16 04:06 12/09/16 04:06 12/09/16 12/09/16 04:06 04:06 WBC 6.9 RBC 3.51 L Hgb 11.0 L Hct 32.3 L MCV 92 MCH 31.2 MCHC 33.9 RDW 14.4 H Plt Count 181 Seg Neutrophils % 83.0 H Lymphocytes % 7.4 L Monocytes % 9.2 Eosinophils % 0.0 Basophils % 0.4 Absolute Neutrophils 5.8 Absolute Lymphocytes 0.5 Absolute Monocytes 0.6 Absolute Eosinophils 0.0 Absolute Basophils 0.0 Sodium 143.3 Potassium 4.9 Chloride 103 Carbon Dioxide 30 Anion Gap 10 BUN 21 H Creatinine 0.90 Est GFR ( Amer) > 60 Est GFR (Non-Af Amer) > 60 Glucose 141 H Calcium 9.3 Impressions: Chest X-Ray 12/08/16 01:40 IMPRESSION: No acute cardiopulmonary findings. Qualifiers PATEINT BEING DISCHARGED WITH ANY OF THE FOLLOWING DIAGNOSIS?: No Plan Discharge Plan: Patient is discharged to home in stable condition and will follow-up with her primary care doctor in 1-2 weeks. Time Spent: Less than 30 Minutes
[2016-12-09 14:05] VITALS: BP 129/63
== END 2016-12-09 14:28 | disposition home or self-care (01) | DRG 190 ==
LOC: ER 01:34 → EH 04:25 → UNDOADMIN 04:27 → EH 04:27 → 3W 13:48
PROVIDERS: ADMIT Internal Medicine; ATTEND Internal Medicine
PROC: 3E0F73Z Introduction of Anti-inflammatory into Respiratory Tract, Via Natural or Artificial Opening (ICD-10-PCS; principal; 2016-12-08)
DX: J44.1 Chronic obstructive pulmonary disease with (acute) exacerbation (principal); J96.21 Acute and chronic respiratory failure with hypoxia; J18.9 Pneumonia, unspecified organism; C79.31 Secondary malignant neoplasm of brain; C34.90 Malignant neoplasm of unspecified part of unspecified bronchus or lung; E66.2 Morbid (severe) obesity with alveolar hypoventilation; E87.6 Hypokalemia; J44.0 Chronic obstructive pulmonary disease with (acute) lower respiratory infection; E10.9 Type 1 diabetes mellitus without complications; K21.9 Gastro-esophageal reflux disease without esophagitis; I11.0 Hypertensive heart disease with heart failure; I50.9 Heart failure, unspecified; D63.8 Anemia in other chronic diseases classified elsewhere; I25.10 Atherosclerotic heart disease of native coronary artery without angina pectoris; E78.5 Hyperlipidemia, unspecified; E03.9 Hypothyroidism, unspecified; Z68.33 Body mass index [BMI] 33.0-33.9, adult; Z79.82 Long term (current) use of aspirin; Z79.899 Other long term (current) drug therapy; Z99.81 Dependence on supplemental oxygen; I25.2 Old myocardial infarction; Z90.49 Acquired absence of other specified parts of digestive tract; Z87.891 Personal history of nicotine dependence; Z88.1 Allergy status to other antibiotic agents; Z88.3 Allergy status to other anti-infective agents
CPT/HCPCS: 36415; 71010; 80048; 80053; 82550; 82553; 82803; 82962; 83735; 83880; 84484; 85025; 87070; 87077; 87186; 87205; 93005; 93010; 94640; 94667; 94668; 94799; 96372; 96374; 96375; 96376; 99285; J0696; J1644; J1815; J2930; J3475; J3490; J7512; J7620

== ENCOUNTER 2017-01-31 04:52 | Inpatient (IN) | payer MEDICARE, OTHER ==
[2017-01-31] MEDS ORDERED: IPRATROPIUM/ALBUTEROL 0.5-2.5 MG/3 ML AMPUL NEB ONE ×2 (05:03→06:44)
[2017-01-31] MEDS ORDERED: ALBUTEROL SULFATE 0.083% NEB 2.5 MG/3 ML AMPUL NEB SCH (05:19)
[2017-01-31 06:10] LABS: VENOUS BLOOD HCO3 31.7 mmol/L (20-32); VENOUS BLOOD PCO2 56.8 mmHg (35-63); VENOUS BLOOD PH 7.37 (7.30-7.42)
[2017-01-31] MEDS ORDERED: ASPIRIN 81 MG TABLET, CHEWABLE PO ONE (06:43)
[2017-01-31] MEDS ORDERED: METHYLPREDNISOLONE INJ 125 MG/2 ML SDV IV ONE (06:44)
[2017-01-31 07:35] LABS: ABSOLUTE EOSINOPHILS # (AUTO) 0.5 10^3/uL (0.0-0.6); ABSOLUTE LYMPHOCYTES (AUTO) 0.9 10^3/uL (0.5-4.7); ABSOLUTE MONOCYTES (AUTO) 0.5 10^3/uL (0.1-1.4); ABSOLUTE NEUT (AUTO) 2.1 10^3/uL (1.7-8.2); BASOPHILS % (AUTO) 0.7 % (0-2); EOSINOPHILS % (AUTO) 12.4 % (0-6); HEMATOCRIT 36.5 % (36.0-47.0); HEMOGLOBIN 11.9 g/dL (12.0-15.5); HGB HCT DIFFERENCE -0.8; LYMPHOCYTES % (AUTO) 21.6 % (13-45); MEAN CORPUSCULAR HEMOGLOBIN 30.8 pg (27.0-33.4); MEAN CORPUSCULAR HGB CONC 32.6 g/dL (32.0-36.0); MEAN CORPUSCULAR VOLUME 94 fl (80-97); MONOCYTES % (AUTO) 11.6 % (3-13); RED BLOOD COUNT 3.87 10^6/uL (3.72-5.28); RED CELL DISTRIBUTION WIDTH 14.1 % (11.5-14.0); SEGMENTED NEUTROPHILS % (AUTO) 53.7 % (42-78); WHITE BLOOD COUNT 3.9 10^3/uL (4.0-10.5)
[2017-01-31 07:41] LABS: PROTHROMBIN TIME 12.1 SEC (11.4-15.4)
[2017-01-31 07:52] LABS: ALANINE AMINOTRANSFERASE 41 U/L (9-52); ALBUMIN 3.5 g/dL (3.5-5.0); ALKALINE PHOSPHATASE 76 U/L (38-126); ANION GAP 9 (5-19); ASPARTATE AMINO TRANSFERASE 39 U/L (14-36); BILIRUBIN,DIRECT 0.3 mg/dL (0.0-0.4); BILIRUBIN,TOTAL 0.4 mg/dL (0.2-1.3); BLOOD UREA NITROGEN 14 mg/dL (7-20); CALCIUM 8.7 mg/dL (8.4-10.2); CARBON DIOXIDE 32 mmol/L (22-30); CHLORIDE 101 mmol/L (98-107); CREATINE KINASE 251 U/L (30-135); CREATININE RESULT 0.93 mg/dL (0.52-1.25); GLUCOSE 102 mg/dL (75-110); MAGNESIUM 2.1 mg/dL (1.6-2.3); POTASSIUM 3.2 mmol/L (3.6-5.0); SODIUM 141.7 mmol/L (137-145); TOTAL PROTEIN 6.2 g/dL (6.3-8.2)
[2017-01-31] MEDS ORDERED: DOXYCYCLINE HYCLATE INJ 100 MG VIAL IV ONE (07:57)
[2017-01-31 08:04] LABS: CREATINE KINASE MB 3.72 ng/mL (<4.55); TROPONIN I < 0.012 ng/mL
--- NOTE | 2017-01-31 08:22 | RADIOLOGY REPORT (SQ) ---
EXAM DESCRIPTION: CHEST SINGLE VIEW COMPLETED DATE/TIME: 01/31/2017 7:58 am REASON FOR STUDY: sob COMPARISON: 12/08/2016. 09/06/2016. 11/17/2015. 2014. NUMBER OF VIEWS: One view. TECHNIQUE: Single frontal radiographic view of the chest acquired. LIMITATIONS: None. FINDINGS: LUNGS AND PLEURA: Low lung volumes. Persistent density and distortion in the right hilum, chronic. No new areas of infiltrate. No pleural fluid or pneumothorax. MEDIASTINUM AND HILAR STRUCTURES: Stable contours. HEART AND VASCULAR STRUCTURES: Normal size. No evidence for failure. BONES: No acute findings. HARDWARE: None in the chest. OTHER: No other significant finding. IMPRESSION: 1. Low lung volumes. 2. Chronic nonprogressive distortion and increased density over t he right hilum. No acute infiltrate. TECHNICAL DOCUMENTATION: JOB ID: [id number] [employer]- All Rights Reserved
[2017-01-31] MEDS ORDERED: ALBUTEROL SULFATE 0.083% NEB 2.5 MG/3 ML AMPUL NEB ONE (09:49)
--- NOTE | 2017-01-31 10:12 | ER Document Report ---
ED General - General Chief Complaint: Breathing Difficulty Stated Complaint: RESPIRATORY DISTRESS Time Seen by Provider: 01/31/17 06:10 TRAVEL OUTSIDE OF THE [place] IN LAST 30 DAYS: No - HPI Patient complains to provider of: Difficulty in breathing Notes: Patient coming in for evaluation of difficulty breathing. Patient states history of COPD on chronic oxygen at home. Increase shortness of breath over the last 24-48 hours with complaint of cough of yellow-green sputum. Patient denies any fever chills nausea vomiting. Patient denies any chest pain abdominal pain. Upon my evaluation patient is resting comfortably patient audible wheezing upon evaluation - Related Data Allergies/Adverse Reactions: amoxicillin [Amoxicillin] Allergy (Verified 11/14/16 14:48) erythromycin base [Erythromycin Base] Allergy (Verified 11/14/16 14:48) Potassium Clavulanate * [From Augmentin] Allergy (Verified 11/14/16 14:48) Home Medications: Current Home Medications Acetaminophen [Pain Relief] 325 mg PO Q8HP PRN 01/31/17 [History] Albuterol Sulfate [Albuterol Sulfate 2.5mg/3 mL] 1 vial NEB Q6HP PRN 01/31/17 [ History] Aspirin [Aspirin 81 mg Chewable Tablet] 81 mg PO DAILY 01/31/17 [History] Docusate Sodium [Colace 100 mg Capsule] 100 mg PO DAILY 01/31/17 [History] Fluticasone/Salmeterol [Advair 500-50 Diskus 28 Dose] 1 puff IH Q12 01/31/17 [ History] Furosemide [Lasix] 40 mg PO DAILY 01/31/17 [History] Lansoprazole [Prevacid] 15 mg PO DAILY 01/31/17 [History] Levalbuterol Tartrate [Xopenex Hfa] 2 puff IH Q6HP PRN 01/31/17 [History] Levothyroxine Sodium [Synthroid 0.05 mg Tablet] 0.05 mg PO DAILY 01/31/17 [ History] Oxycodone HCl/Acetaminophen [Percocet 5-325 mg Tablet] 1 tab PO Q8HP PRN [History] Polyethylene Glycol 3350 [Miralax Powder 17 gm/Packet] 1 packet PO DAILY [History] Potassium Chloride [Klor-Con 10 Meq Tablet.sa] 10 meq PO DAILY 01/31/17 [History ] Prednisone [Deltasone 10 mg Tablet] 10 mg PO DAILY 01/31/17 [History] Tiotropium [place] [Spiriva Handihaler 18 mcg/dose (30 Dose)] 1 cap IH DAILY 11/14 [History] Past Medical History - Social History Smoking Status: Unknown if Ever Smoked Family History: Malignancy - Lung cancer - Past Medical History Cardiac Medical History: Reports: Hx Congestive Heart Failure, Hx Coronary Artery Disease, Hx Heart Attack, Hx Hypercholesterolemia, Hx Hypertension Pulmonary Medical History: Reports: Hx Asthma, Hx COPD - Home O2 dependent, Hx Pneumonia Endocrine Medical History: Reports: Hx Hypothyroidism Renal/ Medical History: Denies: Hx Peritoneal Dialysis Malignancy Medical History: Reports: Hx Brain Cancer - Lung cancer with brain metastases, 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 Past Surgical History: Reports: Hx Cholecystectomy, Hx Orthopedic Surgery - Foot surgery - Immunizations Hx Diphtheria, Pertussis, Tetanus Vaccination: Yes Hx Pneumococcal Vaccination: 08/30/12 Review of Systems - Review of Systems Constitutional: No symptoms reported EENT: No symptoms reported Cardiovascular: No symptoms reported Respiratory: Short of breath, Sputum Gastrointestinal: No symptoms reported Genitourinary: No symptoms reported Female Genitourinary: No symptoms reported Musculoskeletal: No symptoms reported Skin: No symptoms reported Hematologic/Lymphatic: No symptoms reported Neurological/Psychological: No symptoms reported -: Yes All other systems reviewed and negative Physical Exam - Vital signs Vitals: Resp Pulse Ox 28 H 99 01/31/17 05:08 01/31/17 05:08 Interpretation: Tachypneic - General General appearance: Appears well, Alert - HEENT Head: Normocephalic, Atraumatic Eyes: Normal Pupils: PERRL - Respiratory Respiratory status: Respiratory distress - Mild, Tachypnea Chest status: Nontender Breath sounds: Rhonchi, Wheezing Chest palpation: Normal - Cardiovascular Rhythm: Regular Heart sounds: Normal auscultation Murmur: No - Abdominal Inspection: Normal Distension: No distension Bowel sounds: Normal Tenderness: Nontender Organomegaly: No organomegaly - Back Back: Normal, Nontender - Extremities General upper extremity: Normal inspection, Nontender, Normal color, Normal ROM , Normal temperature General lower extremity: Normal inspection, Nontender, Normal color, Normal ROM , Normal temperature, Normal weight bearing. No: Sabine's sign - Neurological Neuro grossly intact: Yes Cognition: Normal Orientation: AAOx4 [place] Coma Scale Eye Opening: Spontaneous Raquel Coma Scale Verbal: Oriented [place] Coma Scale Motor: Obeys Commands [place] Coma Scale Total: 15 Speech: Normal Motor strength normal: LUE, RUE, LLE, RLE Sensory: Normal - Psychological Associated symptoms: Normal affect, Normal mood - Skin Skin Temperature: Warm Skin Moisture: Dry Skin Color: Normal Course - Re-evaluation Re-evalutation: 01/31/17 14:07 Patient coming in for evaluation shortness of breath. Chest x-ray shows retained her right hilar mass no signs of overt pneumonia. Lab work reveals no critical pathology. Patient still remains very tachypneic and having coarse sounding lungs. More consistent with COPD exacerbation but doxycycline was added due to productive cough. Because patient breathing lung sounds not improving will admit the patient for further evaluation of her acute on chronic respiratory issues - Vital Signs Vital signs: Temp Pulse Resp BP Pulse Ox 103 H 16 91 L 01/31/17 13:18 01/31/17 13:18 01/31/17 13:18 - Laboratory Result Diagrams: 01/31/17 05:23 01/31/17 05:23 Laboratory results interpreted by me: 01/31/17 01/31/17 05:23 05:23 WBC 3.9 L Hgb 11.9 L RDW 14.1 H Eosinophils % 12.4 H Potassium 3.2 L Carbon Dioxide 32 H Est GFR (Non-Af Amer) 59 L AST 39 H Creatine Kinase 251 H Total Protein 6.2 L Discharge - Discharge Clinical Impression: COPD exacerbation, Lung mass Diabetes Qualifiers: Diabetes mellitus complication status: without complication [facility]: Telemetry
--- NOTE | 2017-01-31 10:24 | EKG REPORT ---
SEVERITY:- ABNORMAL ECG - SINUS RHYTHM RIGHT BUNDLE BRANCH BLOCK : Confirmed by: Issa Martinez MD 31-Jan-2017 10:24:23
[2017-01-31] MEDS ORDERED: ACETAMINOPHEN 325 MG TABLET PO PRN (11:30)
[2017-01-31] MEDS ORDERED: MAGNESIUM HYDROXIDE SUSP 30 ML UDCUP PO PRN (11:30)
[2017-01-31] MEDS ORDERED: ONDANSETRON HCL INJ/PF 4 MG/2 ML SDV IV PRN (11:30)
[2017-01-31] MEDS ORDERED: LEVOFLOXACIN 750 MG/D5W RTU 150 ML IV SCH (13:00)
[2017-01-31] MEDS ORDERED: LEVOTHYROXINE SODIUM 0.05 MG TABLET PO ONE ×2 (13:00→17:00)
[2017-01-31] MEDS: IPRATROPIUM/ALBUTEROL 0.5-2.5 MG/3 ML AMPUL NEB SCH ×2 (13:18→19:47)
[2017-01-31] MEDS ORDERED: POTASSIUM CHLORIDE 10 MEQ TABLET.SA PO ONE ×2 (13:30→16:52)
[2017-01-31] MEDS: METHYLPREDNISOLONE INJ 40 MG/1 ML SDV IV SCH ×2 (16:43→21:47)
[2017-01-31] MEDS: LEVOFLOXACIN 750 MG/D5W RTU 750 MG/150 ML RTUPB IV SCH (16:44)
[2017-01-31] MEDS: DOCUSATE SODIUM 100 MG CAPSULE PO SCH (18:05)
[2017-01-31 21:00] LABS: APPEARANCE,URINE CLEAR; BILIRUBIN,URINE NEGATIVE (NEGATIVE); GLUCOSE, URINE NEGATIVE (NEGATIVE); KETONES,URINE NEGATIVE (NEGATIVE); LEUKOCYTE ESTERASE,URINE NEGATIVE (NEGATIVE); NITRITE,URINE NEGATIVE (NEGATIVE); PROTEIN,URINE NEGATIVE (NEGATIVE); URINE SPECIFIC GRAVITY 1.002; UROBILINOGEN,URINE NEGATIVE mg/dL (<2.0)
[2017-01-31] MEDS: FAMOTIDINE 20 MG TABLET PO SCH (21:47)
[2017-01-31] MEDS: FLUTICASONE/SALMETEROL DISKUS 500-50 MCG/DOSE IH SCH (21:47)
[2017-02-01] MEDS: ALBUTEROL SULFATE 0.083% NEB 2.5 MG/3 ML AMPUL NEB PRN (03:24)
[2017-02-01] MEDS: METHYLPREDNISOLONE INJ 40 MG/1 ML SDV IV SCH ×3 (05:55→21:25)
[2017-02-01] MEDS: IPRATROPIUM/ALBUTEROL 0.5-2.5 MG/3 ML AMPUL NEB SCH ×3 (08:44→20:16)
[2017-02-01] MEDS: FLUTICASONE/SALMETEROL DISKUS 500-50 MCG/DOSE IH SCH ×2 (09:45→21:27)
[2017-02-01] MEDS: TIOTROPIUM BROMIDE DPI 5 CAP/KIT (18 MCG/CAP) IH SCH (09:46)
[2017-02-01] MEDS: POLYETHYLENE GLYCOL 3350 POWDER 17 GM/1 PACKET PO SCH (09:47)
[2017-02-01] MEDS: ENOXAPARIN SODIUM INJ 40 MG/0.4 ML DISP.SYRIN SUBCUT SCH (09:47)
[2017-02-01] MEDS: DOCUSATE SODIUM 100 MG CAPSULE PO SCH ×2 (09:48→16:50)
[2017-02-01] MEDS: ASPIRIN 81 MG TABLET, CHEWABLE PO SCH (09:48)
[2017-02-01] MEDS: LEVOTHYROXINE SODIUM 0.05 MG TABLET PO SCH (09:48)
[2017-02-01] MEDS: FUROSEMIDE 40 MG TABLET PO SCH (09:48)
[2017-02-01] MEDS: FAMOTIDINE 20 MG TABLET PO SCH ×2 (09:48→21:24)
[2017-02-01] MEDS ORDERED: POTASSIUM CHLORIDE 10 MEQ TABLET.SA PO SCH (10:00)
--- NOTE | 2017-02-01 14:48 | PDOC PROGRESS REPORT ---
Subjective Progress Note for:: 02/01/17 Subjective:: Has known COPD. She normally wears 2 L of oxygen. She presented to the hospital with increasing shortness of breath and a progressive cough. She has been bringing up green sputum. In November, the patient did have a respiratory culture demonstrating a Pseudomonas species. Today, she does feel improved, but , she does not yet feel back to her baseline. Neck with minimal activities. Of note, the patient is noted to have an abnormal chest x-ray and CT scans dating back to last winter. Physical Exam Vital Signs: Temp Pulse Resp BP Pulse Ox 99.1 F 113 H 14 99/62 L 93 02/01/17 12:00 02/01/17 14:01 02/01/17 14:01 02/01/17 12:00 02/01/17 12:00 Intake & Output 01/31/17 02/01/17 02/02/17 06:59 06:59 06:59 Intake Total 702 Balance 702 Weight 85.7 kg General appearance: PRESENT: mild distress Head exam: PRESENT: atraumatic Eye exam: PRESENT: EOMI Mouth exam: PRESENT: neck supple Respiratory exam: PRESENT: prolonged expiratory phas, rhonchi, symmetrical, tachypnea, wheezes Cardiovascular exam: PRESENT: RRR GI/Abdominal exam: PRESENT: normal bowel sounds, soft Neurological exam: PRESENT: alert Psychiatric exam: PRESENT: appropriate affect Results Laboratory Results: 01/31/17 20:39 Urine Color STRAW Urine Appearance CLEAR Urine pH 6.0 Ur Specific [place] 1.002 Urine Protein NEGATIVE Urine Glucose (UA) NEGATIVE Urine Ketones NEGATIVE Urine Blood NEGATIVE Urine Nitrite NEGATIVE Ur Leukocyte Esterase NEGATIVE Urine WBC (Auto) 0 Urine RBC (Auto) 1 01/31/17 02/01/17 18:35 00:14 Creatine Kinase 160 H 144 H Impressions: Chest X-Ray 01/31/17 06:43 IMPRESSION: 1. Low lung volumes. 2. Chronic nonprogressive distortion and increased density over the right hilum. No acute infiltrate. Assessment & Plan - Diagnosis (1) Leukopenia Is this a current diagnosis for this admission?: YesPlan: Order a repeat CBC in the a.m. (2) Hypokalemia Is this a current diagnosis for this admission?: YesPlan: Replaced on admission. Will order repeat labs in the morning. (3) COPD exacerbation Is this a current diagnosis for this admission?: YesPlan: You antibiotics. Antibiotics will cover Pseudomonas. Continue corticosteroids systemically and bronchodilators. (4) Diabetes Qualifiers: Diabetes mellitus complication status: without complication Is this a current diagnosis for this admission?: YesPlan: Do a carbohydrate controlled diet. Initiate fingersticks. (5) Lung mass Is this a current diagnosis for this admission?: YesPlan: Films are stable to improved from prior testing, but, this issue will need to be followed and addressed in the outpatient setting. (6) Hypoxia Is this a current diagnosis for this admission?: Yes - Time Time Spent with patient: 15-24 minutes - Inpatient Certification Medical Necessity: Need for IV Antibiotics, Risk of Complication if Not Cared For in Hospital
[2017-02-01] MEDS ORDERED: DEXTROSE 50%-WATER SYRINGE 12.5 GM/25 ML DOSE IV PRN (16:33)
[2017-02-01] MEDS ORDERED: DEXTROSE 40% GEL 15 GM TUBE PO PRN (16:33)
[2017-02-01] MEDS ORDERED: GLUCAGON,HUMAN RECOMB 1 MG INJ IM PRN (16:33)
[2017-02-01] MEDS ORDERED: INSULIN LISPRO 100 UNIT/ML 3 ML VIAL SUBCUT PRN (16:33)
[2017-02-01] MEDS ORDERED: DEXTROSE 50%-WATER SYRINGE 25 GM/50 ML DOSE IV PRN (16:33)
[2017-02-01] MEDS ORDERED: DEXTROSE 40% GEL 15 GM TUBE X 2 PO PRN (16:33)
[2017-02-01] MEDS: LEVOFLOXACIN 750 MG/D5W RTU 750 MG/150 ML RTUPB IV SCH (16:50)
--- NOTE | 2017-02-01 20:35 | EKG REPORT ---
SEVERITY:- ABNORMAL ECG - SINUS TACHYCARDIA RIGHT BUNDLE BRANCH BLOCK : Confirmed by: Issa Martinez MD 01-Feb-2017 20:34:39
[2017-02-01] MEDS: OXYCODONE-ACETAMINOPHEN 5-325 MG TABLET PO PRN (21:24)
[2017-02-01] MEDS: METOPROLOL TARTRATE 25 MG TABLET PO SCH (21:25)
[2017-02-02] MEDS: OXYCODONE-ACETAMINOPHEN 5-325 MG TABLET PO PRN ×2 (04:11→13:54)
[2017-02-02] MEDS: ALBUTEROL SULFATE 0.083% NEB 2.5 MG/3 ML AMPUL NEB PRN (04:13)
[2017-02-02] MEDS: METHYLPREDNISOLONE INJ 40 MG/1 ML SDV IV SCH (05:07)
[2017-02-02 07:06] LABS: ABSOLUTE LYMPHOCYTES (AUTO) 0.7 10^3/uL (0.5-4.7); ABSOLUTE MONOCYTES (AUTO) 0.4 10^3/uL (0.1-1.4); ABSOLUTE NEUT (AUTO) 8.6 10^3/uL (1.7-8.2); BASOPHILS % (AUTO) 0.1 % (0-2); HEMATOCRIT 35.4 % (36.0-47.0); HEMOGLOBIN 11.7 g/dL (12.0-15.5); HGB HCT DIFFERENCE -0.3; LYMPHOCYTES % (AUTO) 7.6 % (13-45); MEAN CORPUSCULAR HEMOGLOBIN 30.8 pg (27.0-33.4); MEAN CORPUSCULAR VOLUME 93 fl (80-97); MONOCYTES % (AUTO) 4.4 % (3-13); RED BLOOD COUNT 3.79 10^6/uL (3.72-5.28); RED CELL DISTRIBUTION WIDTH 14.3 % (11.5-14.0); SEGMENTED NEUTROPHILS % (AUTO) 87.9 % (42-78)
[2017-02-02 07:24] LABS: ANION GAP 10 (5-19); BLOOD UREA NITROGEN 27 mg/dL (7-20); CALCIUM 9.2 mg/dL (8.4-10.2); CARBON DIOXIDE 27 mmol/L (22-30); CHLORIDE 104 mmol/L (98-107); CREATININE RESULT 1.08 mg/dL (0.52-1.25); GLUCOSE 135 mg/dL (75-110); POTASSIUM 5.1 mmol/L (3.6-5.0); SODIUM 140.8 mmol/L (137-145)
[2017-02-02 07:26] LABS: WHITE BLOOD COUNT 9.7 10^3/uL (4.0-10.5)
[2017-02-02] MEDS: IPRATROPIUM/ALBUTEROL 0.5-2.5 MG/3 ML AMPUL NEB SCH (08:34)
[2017-02-02] MEDS: DOCUSATE SODIUM 100 MG CAPSULE PO SCH (09:31)
[2017-02-02] MEDS: LEVOTHYROXINE SODIUM 0.05 MG TABLET PO SCH (09:31)
[2017-02-02] MEDS: FUROSEMIDE 40 MG TABLET PO SCH (09:31)
[2017-02-02] MEDS: METOPROLOL TARTRATE 25 MG TABLET PO SCH (09:32)
[2017-02-02] MEDS: ASPIRIN 81 MG TABLET, CHEWABLE PO SCH (09:32)
[2017-02-02] MEDS: FLUTICASONE/SALMETEROL DISKUS 500-50 MCG/DOSE IH SCH (09:32)
[2017-02-02] MEDS: FAMOTIDINE 20 MG TABLET PO SCH (09:32)
[2017-02-02] MEDS: ENOXAPARIN SODIUM INJ 40 MG/0.4 ML DISP.SYRIN SUBCUT SCH (09:33)
[2017-02-02] MEDS: TIOTROPIUM BROMIDE DPI 5 CAP/KIT (18 MCG/CAP) IH SCH (09:33)
[2017-02-02] MEDS: POLYETHYLENE GLYCOL 3350 POWDER 17 GM/1 PACKET PO SCH (09:34)
[2017-02-02] MEDS ORDERED: PREDNISONE 20 MG TABLET PO SCH (10:00)
[2017-02-02] MEDS ORDERED: ONDANSETRON HCL INJ/PF 4 MG/2 ML SDV IV PRN (12:59)
[2017-02-02] MEDS ORDERED: MAGNESIUM HYDROXIDE SUSP 30 ML UDCUP PO PRN (13:02)
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
[2017-02-02 13:32] VITALS: BP 116/77
[2017-02-03] MEDS ORDERED: LEVOTHYROXINE SODIUM 0.05 MG TABLET PO SCH (08:00)
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
== END 2017-02-02 14:05 | disposition home or self-care (01) | DRG 815 ==
LOC: ER 04:52 → EH 10:58 → UNDOADMIN 10:58 → EH 11:26 → 4N 12:45 → EH 12:45
PROVIDERS: ADMIT Family Medicine; ATTEND Family Medicine
DX: D72.819 Decreased white blood cell count, unspecified (principal); J44.1 Chronic obstructive pulmonary disease with (acute) exacerbation; C34.90 Malignant neoplasm of unspecified part of unspecified bronchus or lung; C79.31 Secondary malignant neoplasm of brain; E87.6 Hypokalemia; I50.9 Heart failure, unspecified; I25.10 Atherosclerotic heart disease of native coronary artery without angina pectoris; E78.5 Hyperlipidemia, unspecified; I11.0 Hypertensive heart disease with heart failure; E03.9 Hypothyroidism, unspecified; E11.9 Type 2 diabetes mellitus without complications; Z60.2 Problems related to living alone; Z99.81 Dependence on supplemental oxygen; Z88.1 Allergy status to other antibiotic agents; Z79.82 Long term (current) use of aspirin; Z79.51 Long term (current) use of inhaled steroids; Z79.899 Other long term (current) drug therapy; I25.2 Old myocardial infarction
CPT/HCPCS: 36415; 71010; 80048; 80053; 81001; 82550; 82553; 82803; 82962; 83690; 83735; 84484; 85025; 85610; 87070; 87077; 87086; 87088; 87205; 93005; 93010; 94640; 96374; 96375; 99285; J1650; J1956; J2920; J2930; J3490; J7512; J7620

== ENCOUNTER 2017-02-25 18:27 | Emergency (ER) | payer MEDICARE, OTHER ==
[2017-02-25] MEDS ORDERED: PREDNISONE 20 MG TABLET PO ONE (18:56)
[2017-02-25] MEDS ORDERED: IPRATROPIUM/ALBUTEROL 0.5-2.5 MG/3 ML AMPUL NEB ONE ×3 (18:59)
--- NOTE | 2017-02-25 19:02 | ER Document Report ---
ED Medical Screen (RME) - General Chief Complaint: Dizziness Stated Complaint: BLOOD PRESSURE ISSUE TRAVEL OUTSIDE OF THE [place] IN LAST 30 DAYS: No - HPI Patient complains to provider of: Cough, weakness, fatigue, varying blood pressure at home Associated Symptoms: Cough (productive) Notes: 02/25/17 19:00 Patient with recent hospitalization for COPD exacerbation presents with increasing cough sputum production is weakness and fatigue. Patient's home health nurse saw the patient last evening and wanted her to be evaluated in the emergency department that time. Patient declined. Patient presents today increasing productive cough weakness fatigue malaise. Patient does not have anymore of her Advair at home. Patient denies fever chills dysuria diarrhea or overt chest pain - Related Data Allergies/Adverse Reactions: amoxicillin [Amoxicillin] Allergy (Verified 02/25/17 18:36) erythromycin base [Erythromycin Base] Allergy (Verified 02/25/17 18:36) Potassium Clavulanate * [From Augmentin] Allergy (Verified 02/25/17 18:36) Past Medical History - Social History Chew tobacco use (# tins/day): No Frequency of alcohol use: None Drug Abuse: None - Past Medical History Cardiac Medical History: Reports: Hx Congestive Heart Failure, Hx Coronary Artery Disease, Hx Heart Attack, Hx Hypercholesterolemia, Hx Hypertension Pulmonary Medical History: Reports: Hx Asthma, Hx COPD - Home O2 dependent, Hx Pneumonia Endocrine Medical History: Reports: Hx Hypothyroidism Renal/ Medical History: Denies: Hx Peritoneal Dialysis Malignancy Medical History: Reports: Hx Brain Cancer - Lung cancer with brain metastases, 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 Psychiatric Medical History: Reports: Hx Depression Past Surgical History: Reports: Hx Cholecystectomy, Hx Orthopedic Surgery - Foot surgery - Immunizations Hx Diphtheria, Pertussis, Tetanus Vaccination: Yes Review of Systems - Review of Systems Constitutional: Weakness Cardiovascular: Dyspnea Respiratory: Cough, Sputum Physical Exam - Vital signs Vitals: Temp Pulse Resp BP Pulse Ox 98.0 F 106 H 22 H 111/69 94 02/25/17 18:36 02/25/17 18:36 02/25/17 18:36 02/25/17 18:36 02/25/17 18:36 - Respiratory Respiratory status: Respiratory distress Chest status: Prolonged expirations Breath sounds: Rhonchi, Wheezing - Cardiovascular Rhythm: Tachycardia Course - Re-evaluation Re-evalutation: 02/25/17 19:02 Ill-appearing female presents for family tachycardic with productive cough and rhonchi on auscultation lung curtis. Patient was given multiple breathing treatments, oral steroids, EKG, lab draw. For possible sepsis - Vital Signs Vital signs: Temp Pulse Resp BP Pulse Ox 98.0 F 106 H 22 H 111/69 94 02/25/17 18:36 02/25/17 18:36 02/25/17 18:36 02/25/17 18:36 02/25/17 18:36
--- NOTE | 2017-02-25 19:50 | ER Document Report ---
ED Respiratory Problem - General Chief Complaint: Dizziness Stated Complaint: BLOOD PRESSURE ISSUE Time Seen by Provider: 02/25/17 19:27 Mode of Arrival: Ambulatory Information source: Patient Notes: 31-year-old female presents to ED for cough congestion wheezing history of COPD asthma and bronchitis she states she has frequent pneumonia also. Been getting more more weak for the last couple days her home health nurse saw her yesterday and told her that she needs to come to the emergency room she was refused at that time but today the coughing and weakness was worse so she decided to come to the emergency room. She states she is out of her Advair at home she denies any fevers chills diarrhea or vomiting or chest pain. She states she does have chronic back pain and that is unchanged. TRAVEL OUTSIDE OF THE [place] IN LAST 30 DAYS: No - HPI Patient complains to provider of: Asthma, COPD, Cough, Short of breath Onset: Other - Several days getting worse Duration: Continuous Quality of pain: Achy, Sharp - History of chronic pain Severity: Moderate Pain Level: 4 Context: Hx asthma, Hx COPD Short of Breath: Moderate Cough: Productive Sputum amount: Small Sputum color: Green At home treatment: Bronchodilators Associated symptoms: Congestion, Cough, Runny nose, Short of breath, Wheezing Similar symptoms previously: Yes Recently seen / treated by doctor: Yes - Related Data Allergies/Adverse Reactions: amoxicillin [Amoxicillin] Allergy (Verified 02/25/17 18:36) erythromycin base [Erythromycin Base] Allergy (Verified 02/25/17 18:36) Potassium Clavulanate * [From Augmentin] Allergy (Verified 02/25/17 18:36) Past Medical History - General Information source: Patient - Social History Smoking Status: Former Smoker Cigarette use (# per day): No Chew tobacco use (# tins/day): No Smoking Education Provided: No Frequency of alcohol use: None Drug Abuse: None Lives with: Family Family History: Malignancy - Lung cancer - Past Medical History Cardiac Medical History: Reports: Hx Congestive Heart Failure, Hx Coronary Artery Disease, Hx Heart Attack, Hx Hypercholesterolemia, Hx Hypertension Pulmonary Medical History: Reports: Hx Asthma, Hx COPD - Home O2 dependent, Hx Pneumonia EENT Medical History: Reports: None Neurological Medical History: Reports: None Endocrine Medical History: Reports: Hx Hypothyroidism Renal/ Medical History: Reports: None Malignancy Medical History: Reports: Hx Brain Cancer - Lung cancer with brain metastases, 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 GI Medical History: Reports: None Musculoskeltal Medical History: Reports Hx Arthritis, Reports Hx Musculoskeletal Deformity, Reports Hx Musculoskeletal Trauma Skin Medical History: Reports None Psychiatric Medical History: Reports: Hx Depression Traumatic Medical History: Reports: None Infectious Medical History: Reports: None Past Surgical History: Reports: Hx Cholecystectomy, Hx Orthopedic Surgery - Foot surgery - Immunizations Hx Diphtheria, Pertussis, Tetanus Vaccination: Yes Hx Pneumococcal Vaccination: 08/30/12 Review of Systems - Review of Systems Constitutional: Recent illness EENT: No symptoms reported Cardiovascular: No symptoms reported Respiratory: Cough, Short of breath, Wheezing Gastrointestinal: No symptoms reported Genitourinary: No symptoms reported Female Genitourinary: No symptoms reported Musculoskeletal: No symptoms reported Skin: No symptoms reported Hematologic/Lymphatic: No symptoms reported Neurological/Psychological: No symptoms reported -: Yes All other systems reviewed and negative Physical Exam - Vital signs Vitals: Temp Pulse Resp BP Pulse Ox 98.0 F 106 H 22 H 111/69 94 02/25/17 18:36 02/25/17 18:36 02/25/17 18:36 02/25/17 18:36 02/25/17 18:36 Interpretation: Normal - General General appearance: Appears well, Alert - HEENT Head: Normocephalic, Atraumatic Eyes: Normal Pupils: PERRL - Respiratory Respiratory status: No respiratory distress Chest status: Nontender Breath sounds: Productive cough, Wheezing Chest palpation: Normal - Cardiovascular Rhythm: Regular Heart sounds: Normal auscultation Murmur: No - Abdominal Inspection: Normal Distension: No distension Bowel sounds: Normal Tenderness: Nontender Organomegaly: No organomegaly - Back Back: Normal, Nontender - Extremities General upper extremity: Normal inspection, Nontender, Normal color, Normal ROM , Normal temperature General lower extremity: Normal inspection, Nontender, Normal color, Normal ROM , Normal temperature, Normal weight bearing. No: Sabine's sign - Neurological Neuro grossly intact: Yes Cognition: Normal Orientation: AAOx4 [place] Coma Scale Eye Opening: Spontaneous [place] Coma Scale Verbal: Oriented Raquel Coma Scale Motor: Obeys Commands [place] Coma Scale Total: 15 Speech: Normal Motor strength normal: LUE, RUE, LLE, RLE Sensory: Normal - Psychological Associated symptoms: Normal affect, Normal mood - Skin Skin Temperature: Warm Skin Moisture: Dry Skin Color: Normal Course - Re-evaluation Re-evalutation: 02/25/17 20:57 Labs and x-rays with patient and written report given to patient to follow-up with her primary doctor. Patient was treated with DuoNeb and albuterol with prednisone and is feeling much better. Wheezes all cleared. Will discharge home with a prescription for prednisone and albuterol. Patient to follow-up with her primary doctor. - Vital Signs Vital signs: Temp Pulse Resp BP Pulse Ox 98.0 F 106 H 14 101/75 94 02/25/17 18:36 02/25/17 18:36 02/25/17 20:34 02/25/17 20:34 02/25/17 20:00 - Laboratory Result Diagrams: 02/25/17 20:17 02/25/17 20:17 Laboratory results interpreted by me: 02/25/17 02/25/17 20:17 20:17 RDW 14.5 H Potassium 3.3 L BUN 21 H Est GFR ( Amer) 53 L Est GFR (Non-Af Amer) 44 L - Diagnostic Test Radiology reviewed: Image reviewed, Reports reviewed Discharge - Discharge Clinical Impression: Obstructive chronic bronchitis with exacerbation Condition: Stable Disposition: HOME, SELF-CARE Instructions: Family Physicians / Practices Additional Instructions: Chronic Obstructive Lung Disease You have chronic obstructive lung disease (COPD). The symptoms come from emphysema (damage to small airways, with trapping of air in large sacks in the lung) and chronic bronchitis (repeated infection and damage to larger airways). The cause is almost always cigarette smoking, although dust exposure, asthma, and infections contribute. You should avoid fumes, dust, and smoke (especially tobacco smoke). Your condition will flare from time to time. There is no cure, but the symptoms can be treated. Bronchodilators (asthma medicine) are often helpful. Antibiotics help when infection is present. When shortness of breath is severe, we may prescribe cortisone medication. If medicine doesn't help enough, we can arrange for you to have an oxygen tank at home. Notify your doctor at once if sputum becomes thick, foul, or bloody, if you develop a fever or chest pain, or if your shortness of breath worsens. STEROID MEDICATION: You have been given an injection of or oral medicine of the cortisone/ steroid class. This medication is used to control inflammation or allergy. Carlos t is usually only given for a short period of time, until the acute process subsides. There are usually no side effects from short-term use of cortisone-like medications. Some persons feel an increased sense of well-being and are not sleepy at bedtime. Long-term use of cortisone medications is best avoided, unless required for a severe condition. If your condition does not remit, or relapses after the course of corticosteroid medication, you should consult your physician. INHALED BRONCHODILATORS: You have received treatment(s) of and/or prescription for an inhaled bronchodilator -- a medication which stimulates the airways in the lung to dilate. This improves the flow of air in asthma, bronchitis, and emphysema. These medicines have some similarity to adrenaline, and can cause similar side effects: shakiness, racing heart, and a sense of nervousness. These side effects decrease with time. Contact your doctor if these side effects are severe. Do not over-use the medicine. Too-frequent use of the inhaler may make it ineffective. Call your doctor if the inhaler is not controlling your symptoms at the prescribed doses. USE OF ACETAMINOPHEN (Tylenol): Acetaminophen may be taken for pain relief or fever control. It's much safer than aspirin, offering a wider range of "safe" dosages. It is safe during . Some brand names are Tylenol, Panadol, Datril, Anacin 3, Tempra, and Liquiprin. Acetaminophen can be repeated every four hours. The following are maximum recommended dosages: WEIGHT Dose Drops Elixir Chewable( 80mg) (LBS.) drprs=droppers tsp=teaspoon 6 40 mg 0.4 ml (1/2) 6-11 80 mg 0.8 ml (full) tsp 1 tab 12-16 120 mg 1 1/2 drprs 3/4 tsp 1 1/2 tabs 17-23 160 mg 2 drprs 1 tsp 2 tabs 24-30 240 mg 3 drprs 1 1/2 tsp 3 tabs 30-35 320 mg 2 tsp 4 tabs 36-41 360 mg 2 1/4 tsp 4 1/2 tabs 42-47 400 mg 2 1/2 tsp 5 tabs 48-53 480 mg 3 tsp 6 tabs 54-59 520 mg 3 1/4 tsp 6 1/2 tabs 60-64 560 mg 3 1/2 tsp 7 tabs 65-70 600 mg 3 3/4 tsp 7 1/2 tabs 71-76 640 mg 4 tsp 8 tabs 77-82 720 mg 4 1/2 tsp 9 tabs 83-88 800 mg 5 tsp 10 tabs >89 pounds or adults 650 mg to 900 mg Acetaminophen can be repeated every four hours. Maximum dose not to exceed 4000 mg a day. These maximum recommended dosages are slightly higher than the dosages written on the product container, but these dosages are very safe and below the toxic dosage for acetaminophen. FOLLOW-UP CARE: If you have been referred to a physician for follow-up care, call the physician s office for an appointment as you were instructed or within the next two days. If you experience worsening or a significant change in your symptoms, notify the physician immediately or return to the Emergency Department at any time for re-evaluation. Prescriptions: Albuterol Sulfate [Proair HFA Inhalation Aerosol 8.5 gm MDI] 2 puff IH Q4H PRN # 1 mdi PRN Reason: Prednisone [Sterapred Ds] 1 pkg PO ASDIR PRN 12 Days PRN Reason:
[2017-02-25 20:32] LABS: ABSOLUTE EOSINOPHILS # (AUTO) 0.3 10^3/uL (0.0-0.6); ABSOLUTE LYMPHOCYTES (AUTO) 2.3 10^3/uL (0.5-4.7); ABSOLUTE MONOCYTES (AUTO) 0.7 10^3/uL (0.1-1.4); ABSOLUTE NEUT (AUTO) 2.8 10^3/uL (1.7-8.2); BASOPHILS % (AUTO) 0.3 % (0-2); EOSINOPHILS % (AUTO) 4.6 % (0-6); HEMATOCRIT 39.7 % (36.0-47.0); HEMOGLOBIN 13.3 g/dL (12.0-15.5); HGB HCT DIFFERENCE 0.2; MEAN CORPUSCULAR HEMOGLOBIN 31.5 pg (27.0-33.4); MEAN CORPUSCULAR HGB CONC 33.5 g/dL (32.0-36.0); MEAN CORPUSCULAR VOLUME 94 fl (80-97); MONOCYTES % (AUTO) 12.1 % (3-13); RED BLOOD COUNT 4.23 10^6/uL (3.72-5.28); RED CELL DISTRIBUTION WIDTH 14.5 % (11.5-14.0); WHITE BLOOD COUNT 6.1 10^3/uL (4.0-10.5)
[2017-02-25 20:47] LABS: ANION GAP 13 (5-19); BLOOD UREA NITROGEN 21 mg/dL (7-20); CALCIUM 9.2 mg/dL (8.4-10.2); CARBON DIOXIDE 29 mmol/L (22-30); CHLORIDE 100 mmol/L (98-107); GLUCOSE 99 mg/dL (75-110); POTASSIUM 3.3 mmol/L (3.6-5.0); SODIUM 141.5 mmol/L (137-145)
--- NOTE | 2017-02-25 20:47 | RADIOLOGY REPORT (SQ) ---
EXAM DESCRIPTION: CHEST SINGLE VIEW COMPLETED DATE/TIME: 02/25/2017 8:30 pm REASON FOR STUDY: cough COMPARISON: 01/31/2017 EXAM PARAMETERS: NUMBER OF VIEWS: One view. TECHNIQUE: Single frontal radiographic view of the chest acquired. RADIATION DOSE: NA LIMITATIONS: None. FINDINGS: LUNGS AND PLEURA: Stable, persistent density of the right hilum. No new focal consolidati on. No pneumothorax. No pleural effusion. MEDIASTINUM AND HILAR STRUCTURES: Stable. HEART AND VASCULAR STRUCTURES: Heart normal in size. Normal vasculature. BONES: No acute findings. HARDWARE: None in the chest. OTHER: No other significant finding. IMPRESSION: Stable radiographic appearance of the chest, demonstrating right hilar density. No evid ence of acute cardiopulmonary abnormality. TECHNICAL DOCUMENTATION: JOB ID: [id number]
[2017-02-25 20:52] VITALS: BP 101/75
[2017-02-25] MEDS ORDERED: POTASSIUM CHLORIDE 10 MEQ TABLET.SA PO ONE (20:57)
--- NOTE | 2017-02-26 11:14 | EKG REPORT ---
SEVERITY:- ABNORMAL ECG - SINUS TACHYCARDIA ATRIAL PREMATURE COMPLEX PROBABLE LEFT ATRIAL ABNORMALITY RIGHT BUNDLE BRANCH BLOCK : Confirmed by: Susan Mishra MD 26-Feb-2017 11:14:05
== END 2017-02-25 21:12 | disposition home or self-care (01) ==
LOC: ER 18:27
DX: J44.1 Chronic obstructive pulmonary disease with (acute) exacerbation (principal); R42 Dizziness and giddiness; R05 Cough; R09.81 Nasal congestion; R06.2 Wheezing; Z79.899 Other long term (current) drug therapy; Z87.891 Personal history of nicotine dependence
CPT/HCPCS: 93005; 94640 ×2; 99285; 36415; 87040; 85025; 80048; 83605; 71010; 93010; A9270 ×3; J7512; J7620

== ENCOUNTER 2017-03-01 21:49 | Emergency (ER) | payer MEDICARE, OTHER ==
[2017-03-01 23:16] VITALS: BP 120/78
[2017-03-01] MEDS ORDERED: CLINDAMYCIN HCL 150 MG CAPSULE PO ONE (23:16)
--- NOTE | 2017-03-01 23:17 | ER Document Report ---
ED Animal Bite - General Chief Complaint: Dog Bite Stated Complaint: DOG BITE Time Seen by Provider: 03/01/17 23:12 Notes: The patient is a 71-year-old female who presents with a dog bite on the right side of her foot happened last night. It was her dog that accidentally bit her. The dog is acting normally. Denies difficulty walking, redness or fevers. TRAVEL OUTSIDE OF THE [place] IN LAST 30 DAYS: No - Related Data Allergies/Adverse Reactions: amoxicillin [Amoxicillin] Allergy (Verified 02/25/17 18:36) erythromycin base [Erythromycin Base] Allergy (Verified 02/25/17 18:36) Potassium Clavulanate * [From Augmentin] Allergy (Verified 02/25/17 18:36) Past Medical History - General Information source: Patient - Social History Smoking Status: Current Every Day Smoker Family History: Malignancy - Lung cancer Patient has suicidal ideation: No Patient has homicidal ideation: No - Past Medical History Cardiac Medical History: Reports: Hx Congestive Heart Failure, Hx Coronary Artery Disease, Hx Heart Attack, Hx Hypercholesterolemia, Hx Hypertension Pulmonary Medical History: Reports: Hx Asthma, Hx COPD - Home O2 dependent, Hx Pneumonia Endocrine Medical History: Reports: Hx Hypothyroidism Renal/ Medical History: Denies: Hx Peritoneal Dialysis Malignancy Medical History: Reports: Hx Brain Cancer - Lung cancer with brain metastases, 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 Musculoskeltal Medical History: Reports Hx Arthritis, Reports Hx Musculoskeletal Deformity, Reports Hx Musculoskeletal Trauma Psychiatric Medical History: Reports: Hx Depression Past Surgical History: Reports: Hx Cholecystectomy, Hx Orthopedic Surgery - Foot surgery - Immunizations Hx Diphtheria, Pertussis, Tetanus Vaccination: Yes Hx Pneumococcal Vaccination: 08/30/12 Review of Systems - Review of Systems Notes: REVIEW OF SYSTEMS: CONSTITUTIONAL: -fevers, -chills EENT: -eye pain, -difficulty swallowing, -nasal congestion CARDIOVASCULAR:-chest pain, -syncope. RESPIRATORY: -cough, -SOB GASTROINTESTINAL: -abdominal pain, - nausea, -vomiting, -diarrhea GENITOURINARY: -dysuria, -hematuria MUSCULOSKELETAL: -back pain, -neck pain SKIN: +right foot wound, -rash or skin lesions. HEMATOLOGIC: -easy bruising or bleeding. LYMPHATIC: -swollen, enlarged glands. NEUROLOGICAL: -altered mental status or loss of consciousness, -headache, - neurologic symptoms PSYCHIATRIC: -anxiety, -depression. ALL OTHER SYSTEMS REVIEWED AND NEGATIVE. Physical Exam - Vital signs Vitals: Temp Pulse Resp BP Pulse Ox 97.7 F 116 H 18 122/73 99 03/01/17 21:55 03/01/17 21:55 03/01/17 21:55 03/01/17 21:55 03/01/17 21:55 - Notes Notes: PHYSICAL EXAMINATION: GENERAL: Well-appearing, well-nourished and in no acute distress. HEAD: Atraumatic, normocephalic. EYES: Pupils equal round and reactive to light, extraocular movements intact, sclera anicteric, conjunctiva are normal. ENT: nares patent, oropharynx clear without exudates. Moist mucous membranes. NECK: Normal range of motion, supple without lymphadenopathy LUNGS: Breath sounds clear to auscultation bilaterally and equal. No wheezes rales or rhonchi. HEART: Regular rate and rhythm without murmurs ABDOMEN: Soft, nontender, normoactive bowel sounds. No guarding, no rebound. No masses appreciated. EXTREMITIES: Normal range of motion, no pitting or edema. No cyanosis. NEUROLOGICAL: Cranial nerves grossly intact. Normal speech, normal gait. Normal sensory and motor exams. PSYCH: Normal mood, normal affect. SKIN: 2 cm superficial avulsion of right lateral foot Course - Re-evaluation Re-evalutation: Patient presented 24 hours after dog bite with mild erythema around the bite. Will begin clindamycin and instructed her about watching the dog carefully and to call animal control if the dog begins to act abnormally. Given strict return precautions and she understands. - Vital Signs Vital signs: Temp Pulse Resp BP Pulse Ox 97.7 F 116 H 18 122/73 99 03/01/17 21:55 03/01/17 21:55 03/01/17 21:55 03/01/17 21:55 03/01/17 21:55 Discharge - Discharge Clinical Impression: Dog bite of extremity Condition: Stable Disposition: HOME, SELF-CARE Additional Instructions: Animal Bites Animal bites are often heavily contaminated with bacteria. In spite of thorough cleansing and proper treatment, these wounds frequently become infected. Bite wounds of the hands are especially prone to complications. Bites are dressed, if possible. Large wounds may require suturing after internal cleansing. Because of infection risk, some large wounds must remain unstitched. Your doctor is trained to advise you on the best treatment for your bite. Call the doctor at once if the wound becomes red, swollen, warm, increasingly painful, or if it begins to drain. Danger signs also include red streaks up the involved extremity, swollen glands in the groin or under the arm , or fever and chills. The risk of rabies from domestic animals is very low. Bats, sick animals, and wild animals may expose you to rabies. The physician, or the health department, will inform you if you will need to receive the rabies vaccine. Prescriptions: Clindamycin HCl 300 mg PO Q8H 7 Days
== END 2017-03-01 23:24 | disposition home or self-care (01) ==
LOC: ER 21:49
DX: S90.871A Other superficial bite of right foot, initial encounter (principal); W54.0XXA Bitten by dog, initial encounter; Y93.K9 Activity, other involving animal care; Y92.009 Unspecified place in unspecified non-institutional (private) residence as the place of occurrence of the external cause; I25.10 Atherosclerotic heart disease of native coronary artery without angina pectoris; I25.2 Old myocardial infarction; I10 Essential (primary) hypertension; J44.9 Chronic obstructive pulmonary disease, unspecified; F17.200 Nicotine dependence, unspecified, uncomplicated; Z85.118 Personal history of other malignant neoplasm of bronchus and lung; Z85.841 Personal history of malignant neoplasm of brain; Z88.0 Allergy status to penicillin; Z88.1 Allergy status to other antibiotic agents
CPT/HCPCS: 99283; A9270

== ENCOUNTER 2017-03-22 15:15 | Emergency (ER) | payer MEDICARE, OTHER ==
--- NOTE | 2017-03-22 16:22 | ER Document Report ---
ED Medical Screen (RME) - General Chief Complaint: Pain All Over Stated Complaint: BODY ACHES Time Seen by Provider: 03/22/17 16:19 Notes: Patient reports several days of generalized body aches. She has had 1 or 2 episodes of vomiting she states. She has had many episodes of diarrhea. She is also had a cough and shortness of breath. She denies any problems with urination. She has felt weak as well. She states she was referred here by the home health nurse. TRAVEL OUTSIDE OF THE [place] IN LAST 30 DAYS: No - Related Data Allergies/Adverse Reactions: amoxicillin [Amoxicillin] Allergy (Verified 03/22/17 15:24) erythromycin base [Erythromycin Base] Allergy (Verified 03/22/17 15:24) Potassium Clavulanate * [From Augmentin] Allergy (Verified 03/22/17 15:24) Past Medical History - Social History Chew tobacco use (# tins/day): No Frequency of alcohol use: None Drug Abuse: None - Past Medical History Cardiac Medical History: Reports: Hx Congestive Heart Failure, Hx Coronary Artery Disease, Hx Heart Attack, Hx Hypercholesterolemia, Hx Hypertension Pulmonary Medical History: Reports: Hx Asthma, Hx COPD - Home O2 dependent, Hx Pneumonia Endocrine Medical History: Reports: Hx Hypothyroidism Renal/ Medical History: Denies: Hx Peritoneal Dialysis Malignancy Medical History: Reports: Hx Brain Cancer - Lung cancer with brain metastases, 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 Musculoskeltal Medical History: Reports Hx Arthritis, Reports Hx Musculoskeletal Deformity, Reports Hx Musculoskeletal Trauma Psychiatric Medical History: Reports: Hx Depression Past Surgical History: Reports: Hx Cholecystectomy, Hx Orthopedic Surgery - Foot surgery - Immunizations Hx Diphtheria, Pertussis, Tetanus Vaccination: Yes Physical Exam - Vital signs Vitals: Temp Pulse Resp BP Pulse Ox 99.0 F 107 H 21 H 110/63 92 03/22/17 15:25 03/22/17 15:25 03/22/17 15:25 03/22/17 15:25 03/22/17 15:25 Course - Vital Signs Vital signs: Temp Pulse Resp BP Pulse Ox 99.0 F 107 H 21 H 110/63 92 03/22/17 15:25 03/22/17 15:25 03/22/17 15:25 03/22/17 15:25 03/22/17 15:25
--- NOTE | 2017-03-22 17:25 | RADIOLOGY REPORT (SQ) ---
EXAM DESCRIPTION: CHEST SINGLE VIEW COMPLETED DATE/TIME: 03/22/2017 4:56 pm REASON FOR STUDY: cough COMPARISON: CT chest 09/06/2016 Chest films 09/05/2016, 01/31/2017 EXAM PARAMETERS: NUMBER OF VIEWS: One view. TECHNIQUE: Single frontal radiographic view of the chest acquired. RADIATION DOSE: NA LIMITATIONS: None. FINDINGS: LUNGS AND PLEURA: No acute infiltrates. No pleural effusion. No pneumothorax. Postradiation therapy changes in the right perihilar lung parenchyma. Bandlike scarring in the lingu la. MEDIASTINUM AND HILAR STRUCTURES: No masses. Contour normal. HEART AND VASCULAR STRUCTURES: Heart normal in size. Normal vasculature. BONES: No acute findings. HARDWARE: Clips right upper quadrant post cholecystectomy OTHER: No other significant finding. IMPRESSION: Post therapeutic changes. No acute infiltrates. TECHNICAL DOCUMENTATION: JOB ID: [id number]
[2017-03-22 17:43] LABS: AMORPHOUS SEDIMENT,URINE TRACE /HPF; APPEARANCE,URINE CLOUDY; BILIRUBIN,URINE NEGATIVE (NEGATIVE); CALCIUM OXALATE CRYSTALS,URINE FEW /HPF; GLUCOSE, URINE NEGATIVE (NEGATIVE); KETONES,URINE NEGATIVE (NEGATIVE); LEUKOCYTE ESTERASE,URINE NEGATIVE (NEGATIVE); NITRITE,URINE NEGATIVE (NEGATIVE); PROTEIN,URINE NEGATIVE (NEGATIVE); URINE SPECIFIC GRAVITY 1.025; UROBILINOGEN,URINE NEGATIVE mg/dL (<2.0)
[2017-03-22 19:00] LABS: ABSOLUTE EOSINOPHILS # (AUTO) 0.3 10^3/uL (0.0-0.6); ABSOLUTE LYMPHOCYTES (AUTO) 0.9 10^3/uL (0.5-4.7); ABSOLUTE MONOCYTES (AUTO) 0.5 10^3/uL (0.1-1.4); ABSOLUTE NEUT (AUTO) 2.4 10^3/uL (1.7-8.2); BASOPHILS % (AUTO) 0.5 % (0-2); HEMATOCRIT 35.5 % (36.0-47.0); HEMOGLOBIN 11.9 g/dL (12.0-15.5); HGB HCT DIFFERENCE 0.2; LYMPHOCYTES % (AUTO) 22.7 % (13-45); MEAN CORPUSCULAR HGB CONC 33.7 g/dL (32.0-36.0); MEAN CORPUSCULAR VOLUME 95 fl (80-97); MONOCYTES % (AUTO) 12.4 % (3-13); RED BLOOD COUNT 3.73 10^6/uL (3.72-5.28); RED CELL DISTRIBUTION WIDTH 15.2 % (11.5-14.0); SEGMENTED NEUTROPHILS % (AUTO) 57.4 % (42-78); VENOUS BLOOD BASE EXCESS 8.9 mmol/L; VENOUS BLOOD PH 7.34 (7.30-7.42); WHITE BLOOD COUNT 4.1 10^3/uL (4.0-10.5)
[2017-03-22 19:08] VITALS: BP 113/70
[2017-03-22 19:08] LABS: VENOUS BLOOD PCO2 72.4 mmHg (35-63)
[2017-03-22] MEDS ORDERED: OXYCODONE-ACETAMINOPHEN 5-325 MG TABLET PO ONE (19:44)
[2017-03-22] MEDS ORDERED: IPRATROPIUM/ALBUTEROL 0.5-2.5 MG/3 ML AMPUL NEB ONE (19:44)
--- NOTE | 2017-03-22 19:50 | ER Document Report ---
ED General - General Chief Complaint: Pain All Over Stated Complaint: BODY ACHES Time Seen by Provider: 03/22/17 16:19 Notes: Patient is a 71-year-old female comes emergency department for chief complaint of body aches and developing congestion cough for the past 2 days. She states she has not felt good for a few days, she did have vomiting and diarrhea but this resolved. She lives at home, has home health, has COPD with 2 L nasal cannula as needed, also has a history of CAD and previous lung cancer with brain metastasis and radiation treatment. She currently is cleared from cancer. She denies any fevers or chills. She denies any current symptoms other than body aches. She states she is normally on Levaquin 750 mg and prednisone 40 mg daily but she is out and has not made it back to her primary care. TRAVEL OUTSIDE OF THE [place] IN LAST 30 DAYS: No - Related Data Allergies/Adverse Reactions: amoxicillin [Amoxicillin] Allergy (Verified 03/22/17 15:24) erythromycin base [Erythromycin Base] Allergy (Verified 03/22/17 15:24) Potassium Clavulanate * [From Augmentin] Allergy (Verified 03/22/17 15:24) Past Medical History - General Information source: Patient - Social History Smoking Status: Never Smoker Chew tobacco use (# tins/day): No Frequency of alcohol use: None Drug Abuse: None Lives with: Family Family History: Malignancy - Lung cancer Patient has suicidal ideation: No Patient has homicidal ideation: No - Past Medical History Cardiac Medical History: Reports: Hx Congestive Heart Failure, Hx Coronary Artery Disease, Hx Heart Attack, Hx Hypercholesterolemia, Hx Hypertension Pulmonary Medical History: Reports: Hx Asthma, Hx COPD - Home O2 dependent, Hx Pneumonia Endocrine Medical History: Reports: Hx Hypothyroidism Renal/ Medical History: Denies: Hx Peritoneal Dialysis Malignancy Medical History: Reports: Hx Brain Cancer - Lung cancer with brain metastases, 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 Musculoskeltal Medical History: Reports Hx Arthritis, Reports Hx Musculoskeletal Deformity, Reports Hx Musculoskeletal Trauma Psychiatric Medical History: Reports: Hx Depression Past Surgical History: Reports: Hx Cholecystectomy, Hx Orthopedic Surgery - Foot surgery - Immunizations Hx Diphtheria, Pertussis, Tetanus Vaccination: Yes Hx Pneumococcal Vaccination: 08/30/12 Review of Systems - Review of Systems Constitutional: See HPI EENT: No symptoms reported Cardiovascular: No symptoms reported Respiratory: See HPI Gastrointestinal: No symptoms reported Genitourinary: No symptoms reported Female Genitourinary: No symptoms reported Musculoskeletal: No symptoms reported Skin: No symptoms reported Hematologic/Lymphatic: No symptoms reported Neurological/Psychological: No symptoms reported Physical Exam - Vital signs Vitals: Temp Pulse Resp BP Pulse Ox 99.0 F 107 H 21 H 110/63 92 03/22/17 15:25 03/22/17 15:25 03/22/17 15:25 03/22/17 15:25 03/22/17 15:25 Interpretation: Normal - General General appearance: Appears well, Alert - HEENT Head: Normocephalic, Atraumatic Eyes: Normal Pupils: PERRL - Respiratory Respiratory status: No respiratory distress. No: Respiratory distress, Labored Chest status: Nontender Breath sounds: Decreased air movement, Wheezing. No: Nonproductive cough, Productive cough Chest palpation: Normal - Cardiovascular Rhythm: Regular. No: Tachycardia Heart sounds: Normal auscultation, S1 appreciated, S2 appreciated Murmur: No - Abdominal Inspection: Normal Distension: No distension Bowel sounds: Normal Tenderness: Nontender Organomegaly: No organomegaly - Back Back: Normal, Nontender - Extremities General upper extremity: Normal inspection, Nontender, Normal strength, Normal temperature General lower extremity: Normal inspection, Nontender, Normal strength, Normal temperature - Neurological Neuro grossly intact: Yes Cognition: Normal Orientation: AAOx4 [place] Coma Scale Eye Opening: Spontaneous [place] Coma Scale Verbal: Oriented [place] Coma Scale Motor: Obeys Commands [place] Coma Scale Total: 15 Speech: Normal Motor strength normal: LUE, RUE, LLE, RLE Sensory: Normal - Psychological Associated symptoms: Normal affect, Normal mood - Skin Skin Temperature: Warm Skin Moisture: Dry Skin Color: Normal Course - Re-evaluation Re-evalutation: Patient with initial wheezing, this resolved with a single treatment. Patient is actually very well-appearing male, speaks in full sentences, not hypoxic on room air. She is dangling her feet over the side of the bed talking and laughing. Chest x-ray is unremarkable. CBC is unremarkable. Chemistry is generally unremarkable. Venous blood gases more concerning, shows elevated CO2 with compensation with bicarb. No acidosis. Patient has had this in the past, she does appear excellent, however I discussed with patient, recommended additional treatments, steroids, and repeat VBG. Patient refuses, states she is ready to leave, request Levaquin and prednisone prescription along with a refill of her other medications because she has not been able to get to her primary care because they did not have available appointment. I did discuss with Dr. Bazzi. Patient will be discharged with strict return precautions, patient states she will return by ambulance if need be and states she feels great and she wants to go home. Discussed with patient and family. - Vital Signs Vital signs: Temp Pulse Resp BP Pulse Ox 98.4 F 89 18 113/70 96 03/22/17 19:08 03/22/17 19:08 03/22/17 19:08 03/22/17 19:08 03/22/17 19:08 - Laboratory Result Diagrams: 03/22/17 18:38 03/22/17 18:38 Laboratory results interpreted by me: 03/22/17 03/22/17 03/22/17 18:38 18:38 18:38 Hgb 11.9 L Hct 35.5 L RDW 15.2 H Eosinophils % 7.0 H VBG pCO2 72.4 H* VBG HCO3 38.0 H Potassium 3.5 L Carbon Dioxide 34 H Est GFR ( Amer) 55 L Est GFR (Non-Af Amer) 46 L Total Protein 6.0 L Discharge - Discharge Clinical Impression: Cough, Wheezing Chronic pain Qualifiers: Chronic pain type: other chronic pain Qualified Code(s): G89.29 - Other chronic pain COPD (chronic obstructive pulmonary disease) Qualifiers: COPD type: COPD with acute exacerbation Qualified Code(s): J44.1 - Chronic obstructive pulmonary disease with (acute) exacerbation Condition: Stable Disposition: HOME, SELF-CARE Additional Instructions: Wear your oxygen at home. Take the Levaquin and Prednisone as prescribed. Call your Provider to set up closer followup than planned (ideal in the next couple of days instead of a week). Return to the ED if you worsen in any way - shortness of breath, fever, etc. Prescriptions: Oxycodone HCl/Acetaminophen [Percocet 5-325 mg Tablet] 1 tab PO Q6HP PRN #10 tablet PRN Reason: Levofloxacin [Levaquin 750 mg Tablet] 750 mg PO DAILY #10 tablet Prednisone 60 mg PO DAILY #15 tablet
[2017-03-22] MEDS ORDERED: METHYLPREDNISOLONE INJ 125 MG/2 ML SDV IV ONE (20:32)
[2017-03-22] MEDS ORDERED: LEVOFLOXACIN 750 MG TABLET PO ONE (20:35)
[2017-03-22 20:41] LABS: ALANINE AMINOTRANSFERASE 24 U/L (9-52); ALBUMIN 3.6 g/dL (3.5-5.0); ALKALINE PHOSPHATASE 74 U/L (38-126); ANION GAP 9 (5-19); ASPARTATE AMINO TRANSFERASE 20 U/L (14-36); BILIRUBIN,DIRECT 0.3 mg/dL (0.0-0.4); BILIRUBIN,TOTAL 0.3 mg/dL (0.2-1.3); BLOOD UREA NITROGEN 17 mg/dL (7-20); CALCIUM 9.4 mg/dL (8.4-10.2); CARBON DIOXIDE 34 mmol/L (22-30); CHLORIDE 100 mmol/L (98-107); CREATININE RESULT 1.16 mg/dL (0.52-1.25); GLUCOSE 92 mg/dL (75-110); POTASSIUM 3.5 mmol/L (3.6-5.0); SODIUM 142.6 mmol/L (137-145)
--- NOTE | 2017-03-22 21:52 | EKG REPORT ---
SEVERITY:- ABNORMAL ECG - SINUS RHYTHM RIGHT BUNDLE BRANCH BLOCK : Confirmed by: Mercedes Solomon 22-Mar-2017 21:51:24
== END 2017-03-22 20:49 | disposition home or self-care (01) ==
LOC: ER 15:15
DX: G89.29 Other chronic pain (principal); J44.1 Chronic obstructive pulmonary disease with (acute) exacerbation; R05 Cough; I25.10 Atherosclerotic heart disease of native coronary artery without angina pectoris; I25.2 Old myocardial infarction; I10 Essential (primary) hypertension; Z85.841 Personal history of malignant neoplasm of brain; Z85.118 Personal history of other malignant neoplasm of bronchus and lung; Z92.3 Personal history of irradiation; Z88.0 Allergy status to penicillin; Z88.1 Allergy status to other antibiotic agents
CPT/HCPCS: 93005; 94640; 99284; 96374; 36415; 87040; 87086; 85025; 80053; 81001; 82803; 83605; 71010; 93010; J2930; A9270 ×3; J7620

== ENCOUNTER 2017-04-15 20:37 | Emergency (ER) | payer MEDICARE, OTHER ==
[2017-04-15] MEDS ORDERED: IPRATROPIUM/ALBUTEROL 0.5-2.5 MG/3 ML AMPUL NEB ONE (21:03)
[2017-04-15 21:14] LABS: ABSOLUTE EOSINOPHILS # (AUTO) 0.3 10^3/uL (0.0-0.6); ABSOLUTE LYMPHOCYTES (AUTO) 1.3 10^3/uL (0.5-4.7); ABSOLUTE MONOCYTES (AUTO) 0.8 10^3/uL (0.1-1.4); ABSOLUTE NEUT (AUTO) 4.6 10^3/uL (1.7-8.2); BASOPHILS % (AUTO) 0.3 % (0-2); EOSINOPHILS % (AUTO) 3.9 % (0-6); HEMATOCRIT 34.4 % (36.0-47.0); HEMOGLOBIN 11.7 g/dL (12.0-15.5); HGB HCT DIFFERENCE 0.7; LYMPHOCYTES % (AUTO) 18.4 % (13-45); MEAN CORPUSCULAR HEMOGLOBIN 32.6 pg (27.0-33.4); MEAN CORPUSCULAR VOLUME 96 fl (80-97); MONOCYTES % (AUTO) 11.4 % (3-13); RED BLOOD COUNT 3.59 10^6/uL (3.72-5.28); RED CELL DISTRIBUTION WIDTH 14.7 % (11.5-14.0); WHITE BLOOD COUNT 6.9 10^3/uL (4.0-10.5)
--- NOTE | 2017-04-15 21:17 | RADIOLOGY REPORT (SQ) ---
EXAM DESCRIPTION: CHEST SINGLE VIEW COMPLETED DATE/TIME: 04/15/2017 8:57 pm REASON FOR STUDY: productive cough COMPARISON: 03/22/2017 EXAM PARAMETERS: NUMBER OF VIEWS: One view. TECHNIQUE: Single frontal radiographic view of the chest acquired. RADIATION DOSE: NA LIMITATIONS: None. FINDINGS: LUNGS AND PLEURA: No new focal opacities, masses or pneumothorax. No pleural effusion. St able radiographic appearance of the right hilum. MEDIASTINUM AND HILAR STRUCTURES: No masses. Contour normal. HEART AND VASCULAR STRUCTURES: Heart normal in size. Normal vasculature. BONES: No acute findings. HARDWARE: None in the chest. OTHER: No other significant finding. IMPRESSION: Stable radiographic appearance of the chest demonstrating postradiation changes of the r ight perihilar lung parenchyma. No evidence of acute cardiopulmonary abnormality. TECHNICAL DOCUMENTATION: JOB ID: [id number]
[2017-04-15 21:23] LABS: PROTHROMBIN TIME 11.4 SEC (11.4-15.4)
[2017-04-15 21:32] LABS: VENOUS BLOOD BASE EXCESS 4.7 mmol/L; VENOUS BLOOD HCO3 32.1 mmol/L (20-32); VENOUS BLOOD PCO2 58.6 mmHg (35-63); VENOUS BLOOD PH 7.36 (7.30-7.42)
[2017-04-15 21:40] LABS: ALANINE AMINOTRANSFERASE 20 U/L (9-52); ALBUMIN 3.6 g/dL (3.5-5.0); ALKALINE PHOSPHATASE 62 U/L (38-126); ANION GAP 11 (5-19); ASPARTATE AMINO TRANSFERASE 22 U/L (14-36); BILIRUBIN,DIRECT 0.4 mg/dL (0.0-0.4); BILIRUBIN,TOTAL 0.4 mg/dL (0.2-1.3); BLOOD UREA NITROGEN 14 mg/dL (7-20); CALCIUM 9.3 mg/dL (8.4-10.2); CARBON DIOXIDE 33 mmol/L (22-30); CHLORIDE 99 mmol/L (98-107); CREATININE RESULT 1.05 mg/dL (0.52-1.25); GLUCOSE 108 mg/dL (75-110); POTASSIUM 3.7 mmol/L (3.6-5.0); SODIUM 142.7 mmol/L (137-145); TOTAL PROTEIN 5.5 g/dL (6.3-8.2)
[2017-04-15 22:02] LABS: APPEARANCE,URINE SLIGHTLY-CLOUDY; BILIRUBIN,URINE NEGATIVE (NEGATIVE); CALCIUM OXALATE CRYSTALS,URINE MODERATE /HPF; GLUCOSE, URINE NEGATIVE (NEGATIVE); KETONES,URINE NEGATIVE (NEGATIVE); LEUKOCYTE ESTERASE,URINE NEGATIVE (NEGATIVE); NITRITE,URINE NEGATIVE (NEGATIVE); PROTEIN,URINE NEGATIVE (NEGATIVE); URINE SPECIFIC GRAVITY 1.027; UROBILINOGEN,URINE NEGATIVE mg/dL (<2.0)
--- NOTE | 2017-04-15 22:02 | ER Document Report ---
ED General - General Mode of Arrival: Ambulatory Information source: Patient TRAVEL OUTSIDE OF THE [place] IN LAST 30 DAYS: No - HPI Onset: Other - Refer to HPI notes Similar symptoms previously: No Recently seen / treated by doctor: No <FLORA ALAN - Last Filed: 04/15/17 23:42> <HUGO GUTIERREZ - Last Filed: 04/16/17 02:35> - General Chief Complaint: Fever Stated Complaint: WEAKNESS Time Seen by Provider: 04/15/17 20:54 Notes: Patient is a 71 year old female presenting to the emergency department for increased cough, weakness, and wheezing. Patient states she has had weakness x1 week. Patient has been wheezing more than normal and has also been coughing more than normal. Patient states she has green sputum. Patient received a duoneb with EMS. Patient was on a recent course of steroids. Patient also has been chilled but is unsure if she has a fever. Patient also had 2-3 days of nausea and vomiting 2 days ago but does not have those symptoms presently. Patient has a history of lung and brain cancer. Patient uses 2 L of oxygen at night and uses it as needed during the day. Patient also complains of some changes to her right lower extremity such as increased erythema and edema. Patient's PCP is Dr. Collins at [facility]. (FLORA ALAN) - Related Data Allergies/Adverse Reactions: amoxicillin [Amoxicillin] Allergy (Verified 04/15/17 21:02) erythromycin base [Erythromycin Base] Allergy (Verified 04/15/17 21:02) Potassium Clavulanate * [From Augmentin] Allergy (Verified 04/15/17 21:02) Past Medical History - General Information source: Patient - Social History Smoking Status: Former Smoker Cigarette use (# per day): No Chew tobacco use (# tins/day): No Smoking Education Provided: No Frequency of alcohol use: None Drug Abuse: None Family History: Malignancy - Lung cancer Patient has suicidal ideation: No Patient has homicidal ideation: No - Past Medical History Cardiac Medical History: Reports: Hx Congestive Heart Failure, Hx Coronary Artery Disease, Hx Heart Attack, Hx Hypercholesterolemia, Hx Hypertension Pulmonary Medical History: Reports: Hx Asthma, Hx COPD - O2 dependent at night and as needed during the day, Hx Pneumonia Endocrine Medical History: Reports: Hx Hypothyroidism Malignancy Medical History: Reports: Hx Brain Cancer - Lung cancer with brain metastases, 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 Musculoskeltal Medical History: Reports Hx Arthritis, Reports Hx Musculoskeletal Deformity, Reports Hx Musculoskeletal Trauma Psychiatric Medical History: Reports: Hx Depression Past Surgical History: Reports: Hx Cholecystectomy, Hx Orthopedic Surgery - Foot surgery - Immunizations Hx Diphtheria, Pertussis, Tetanus Vaccination: Yes Hx Pneumococcal Vaccination: 08/30/12 <FLORA ALAN - Last Filed: 04/15/17 23:42> Review of Systems - Review of Systems Constitutional: See HPI, Chills, Fever EENT: No symptoms reported Cardiovascular: No symptoms reported Respiratory: See HPI, Cough, Sputum, Wheezing Gastrointestinal: See HPI, Nausea, Vomiting Genitourinary: No symptoms reported Female Genitourinary: No symptoms reported Musculoskeletal: No symptoms reported Skin: See HPI Hematologic/Lymphatic: No symptoms reported Neurological/Psychological: See HPI, Weakness -: Yes All other systems reviewed and negative <FLORA ALAN - Last Filed: 04/15/17 23:42> Physical Exam <FLORA ALAN - Last Filed: 04/15/17 23:42> <HUGO GUTIERREZ - Last Filed: 04/16/17 02:35> - Vital signs Vitals: Temp 98.8 F 04/15/17 20:45 - Notes Notes: GENERAL: Alert, interacts well. No acute distress. HEAD: Normocephalic, atraumatic. EYES: Appear normal. Pupils equal, round, and reactive to light. ENT: Moist mucus membranes, tongue midline. NECK: Full range of motion. Supple. Trachea midline. LUNGS: Tachypnea. Productive cough. Diffuse inspiratory and expiratory wheezing with rhonchi. 100% O2 saturation on 2 L NC. HEART: Regular rate and rhythm. No murmurs, gallops, or rubs. ABDOMEN: Soft, non-tender. Non-distended. Normal bowel sounds. EXTREMITIES: Moves all 4 extremities spontaneously. Normal strength. NEUROLOGICAL: Alert and oriented x3. Normal speech. No focal neurological deficits. GCS 15. PSYCH: Normal affect, normal mood. SKIN: Warm, dry, normal turgor. Chronic skin changes to the lower extremities, left lower extremity has edema, erythema, and warmth. Right lower extremity has less edema, erythema, and warmth than the left. (FLORA ALAN) Course - Laboratory Result Diagrams: 04/15/17 20:51 04/15/17 20:51 <FLORA ALAN - Last Filed: 04/15/17 23:42> - Laboratory Result Diagrams: 04/15/17 20:51 04/15/17 20:51 - Diagnostic Test Radiology reviewed: Image reviewed, Reports reviewed - Stable post radiation changes in the right hilum. No acute process. - EKG Interpretation by Me EKG shows normal: Sinus rhythm, [place], Intervals, QRS Complexes, ST-T Waves Rate: Tachycardia - 115 [place]/QRS: RBBB When compared to previous EKG there are: No significant change <HUGO GUTIERREZ - Last Filed: 04/16/17 02:35> - Re-evaluation Re-evalutation: 04/16/17 01:18 Patient is sleeping at this time. Oxygen saturation is 100% on her usual 2 L nasal cannula. Heart rate is 109. She is receiving IV fluids and IV antibiotics. After the fluids run in will reassess and see if she can be discharged to home. 04/16/17 02:30 At this time the patient reports that her breathing is much better than it was when she first came in. She does have nebulizer machine and medication at home. She is asking for prescriptions for Percocet as she ran out of her pain medications 2 days ago. Advised the patient we do not provide chronic pain management in the emergency room she would have to contact her primary care provider for any narcotic refills. (HUGO GUTIERREZ) - Vital Signs Vital signs: Temp Pulse Resp BP Pulse Ox 97.8 F 19 130/78 H 100 04/16/17 01:00 04/16/17 02:00 04/16/17 02:00 04/16/17 02:00 - Laboratory Laboratory results interpreted by me: 04/15/17 04/15/17 04/15/17 20:51 20:51 20:51 RBC 3.59 L Hgb 11.7 L Hct 34.4 L RDW 14.7 H VBG HCO3 32.1 H Carbon Dioxide 33 H Est GFR (Non-Af Amer) 51 L POC Glucose Total Protein 5.5 L 04/15/17 21:49 RBC Hgb Hct RDW VBG HCO3 Carbon Dioxide Est GFR (Non-Af Amer) POC Glucose 126 H Total Protein Discharge <FLORA ALAN - Last Filed: 04/15/17 23:42> <HUGO GUTIERREZ - Last Filed: 04/16/17 02:35> - Discharge Clinical Impression: COPD exacerbation Condition: Stable Disposition: HOME, SELF-CARE Additional Instructions: Your evaluation today suggests you have an exacerbation of your chronic obstructive pulmonary disease with bronchitis. There was no pneumonia seen on your chest x-ray. Take the medications as prescribed. Continue using your nebulizer at home. Follow-up with your doctor this week for recheck and for any pain medication refills you need. RETURN TO THE EMERGENCY ROOM IF ANY NEW OR WORSENING SYMPTOMS. Prescriptions: Levofloxacin [Levaquin 750 mg Tablet] 750 mg PO DAILY #5 tablet Prednisone [Deltasone 10 mg Tablet] 10 mg PO ASDIR PRN #21 tablet PRN Reason: Referrals: MEGHANN COLLINS JR, MD [Primary Care Provider] - Follow up as needed Scribe Attestation: 04/15/17 23:24 I personally performed the services described in the documentation, reviewed and edited the documentation which was dictated to the scribe in my presence, and it accurately records my words and actions. (HUGO GUTIERREZ) Scribe Documentation - Scribe Written by Augustin:: Augustin Mahan 04/15/2017 23:26 acting as scribe for :: Mikael <FLORA ALAN - Last Filed: 04/15/17 23:42>
--- NOTE | 2017-04-15 22:04 | EKG REPORT ---
SEVERITY:- ABNORMAL ECG - SINUS TACHYCARDIA RIGHT BUNDLE BRANCH BLOCK : Confirmed by: Mercedes Solomon 15-Apr-2017 22:03:53
[2017-04-15] MEDS ORDERED: ALBUTEROL SULFATE 0.083% NEB 2.5 MG/3 ML AMPUL NEB ONE (23:22)
[2017-04-15] MEDS ORDERED: LEVOFLOXACIN 750 MG/D5W RTU 750 MG/150 ML RTUPB IV ONE (23:58)
[2017-04-15] MEDS ORDERED: NORMAL SALINE 1000 ML 1,000 ML IV ONE (23:58)
[2017-04-16] MEDS ORDERED: OXYCODONE-ACETAMINOPHEN 5-325 MG TABLET PO ONE (02:30)
[2017-04-16] MEDS ORDERED: PREDNISONE 20 MG TABLET PO ONE ×2 (02:30→02:35)
[2017-04-16 03:36] VITALS: BP 135/75
== END 2017-04-16 03:40 | disposition home or self-care (01) ==
LOC: ER 20:37
DX: J44.1 Chronic obstructive pulmonary disease with (acute) exacerbation (principal); R53.1 Weakness; R50.9 Fever, unspecified; Z88.0 Allergy status to penicillin; Z88.3 Allergy status to other anti-infective agents; Z99.81 Dependence on supplemental oxygen; Z85.118 Personal history of other malignant neoplasm of bronchus and lung; Z85.841 Personal history of malignant neoplasm of brain
CPT/HCPCS: 93005; 99285; 96365; 36415; 87040; 87070; 87086; 87205; 82962; 85025; 85610; 87077; 80053; 81001; 87186; 82803; 83605; 71010; 93010; A9270 ×4; J7030; J1956; J7512; J7620

== ENCOUNTER 2017-05-01 23:50 | Emergency (ER) | payer MEDICARE, OTHER ==
[2017-05-02] MEDS ORDERED: NORMAL SALINE 1000 ML 1,000 ML IV ONE (00:08)
[2017-05-02] MEDS ORDERED: ONDANSETRON HCL INJ/PF 4 MG/2 ML SDV IV ONE (00:09)
[2017-05-02] MEDS ORDERED: IPRATROPIUM/ALBUTEROL 0.5-2.5 MG/3 ML AMPUL NEB ONE (00:11)
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
[2017-05-02 00:38] LABS: ABSOLUTE EOSINOPHILS # (AUTO) 0.1 10^3/uL (0.0-0.6); ABSOLUTE LYMPHOCYTES (AUTO) 0.9 10^3/uL (0.5-4.7); ABSOLUTE NEUT (AUTO) 3.9 10^3/uL (1.7-8.2); BASOPHILS % (AUTO) 0.2 % (0-2); HEMATOCRIT 32.6 % (36.0-47.0); HEMOGLOBIN 11.7 g/dL (12.0-15.5); HGB HCT DIFFERENCE 2.5; LYMPHOCYTES % (AUTO) 15.5 % (13-45); MEAN CORPUSCULAR HEMOGLOBIN 33.3 pg (27.0-33.4); MEAN CORPUSCULAR HGB CONC 35.9 g/dL (32.0-36.0); MEAN CORPUSCULAR VOLUME 93 fl (80-97); MONOCYTES % (AUTO) 16.5 % (3-13); RED BLOOD COUNT 3.51 10^6/uL (3.72-5.28); RED CELL DISTRIBUTION WIDTH 14.1 % (11.5-14.0); SEGMENTED NEUTROPHILS % (AUTO) 66.8 % (42-78); WHITE BLOOD COUNT 5.9 10^3/uL (4.0-10.5)
[2017-05-02 00:49] LABS: ALANINE AMINOTRANSFERASE 29 U/L (9-52); ALKALINE PHOSPHATASE 66 U/L (38-126); ASPARTATE AMINO TRANSFERASE 16 U/L (14-36); BILIRUBIN,DIRECT 0.4 mg/dL (0.0-0.4); BILIRUBIN,TOTAL 0.5 mg/dL (0.2-1.3); CREATINE KINASE 58 U/L (30-135); LIPASE 44.5 U/L (23-300)
[2017-05-02 00:57] LABS: ALBUMIN 3.2 g/dL (3.5-5.0); ANION GAP 9 (5-19); BLOOD UREA NITROGEN 18 mg/dL (7-20); CALCIUM 9.4 mg/dL (8.4-10.2); CARBON DIOXIDE 30 mmol/L (22-30); CHLORIDE 98 mmol/L (98-107); CREATININE RESULT 1.18 mg/dL (0.52-1.25); GLUCOSE 128 mg/dL (75-110); SODIUM 137.2 mmol/L (137-145); TOTAL PROTEIN 5.5 g/dL (6.3-8.2)
[2017-05-02 01:01] LABS: CREATINE KINASE MB 1.12 ng/mL (<4.55)
[2017-05-02 01:04] LABS: APPEARANCE,URINE SLIGHTLY-CLOUDY; BILIRUBIN,URINE NEGATIVE (NEGATIVE); GLUCOSE, URINE NEGATIVE (NEGATIVE); KETONES,URINE TRACE mg/dL (NEGATIVE); LEUKOCYTE ESTERASE,URINE NEGATIVE (NEGATIVE); NITRITE,URINE NEGATIVE (NEGATIVE); PROTEIN,URINE 30 mg/dL (NEGATIVE); URINE SPECIFIC GRAVITY 1.026
[2017-05-02 01:06] LABS: POTASSIUM 2.7 mmol/L (3.6-5.0)
[2017-05-02 01:07] LABS: TROPONIN I < 0.012 ng/mL
[2017-05-02] MEDS ORDERED: POTASSIUM CHLORIDE 10 MEQ TABLET.SA PO ONE (01:12)
[2017-05-02] MEDS ORDERED: POTASSI CL 20 MEQ/50 ML RIDER 20 MEQ/50 ML RTUPB IV ONE (01:12)
[2017-05-02 03:00] VITALS: BP 102/84
--- NOTE | 2017-05-02 03:10 | RADIOLOGY REPORT (SQ) ---
EXAM DESCRIPTION: CHEST SINGLE VIEW CLINICAL HISTORY: 71 years, Female, cough, chest pain COMPARISON: Chest radiographs of April 15, 2017. NUMBER OF VIEWS: 1 TECHNIQUE: Portable radiographic technique. LIMITATIONS: None. FINDINGS: Apical lordotic view on today's chest radiograph. Unchanged right hilar fullness with evidence of central distorting mass lesion. No right pleural effusion. Left lung is clear. Left hilar structures are grossly normal. No pneumothorax. Bones appear normal on this single view. IMPRESSION: 1. Unchanged right hilar distortion with probable underlying mass lesion. Query history of right lung cancer? No superimposed acute cardiopulmonary disease. 2011 [employer]- All Rights Reserved
--- NOTE | 2017-05-02 04:46 | EKG REPORT ---
SEVERITY:- ABNORMAL ECG - SINUS TACHYCARDIA RIGHT BUNDLE BRANCH BLOCK : Confirmed by: Susan Mishra MD 02-May-2017 04:29:26
== END 2017-05-02 03:00 | disposition home or self-care (01) ==
LOC: ER 23:50
DX: M79.1 Myalgia (principal); R11.2 Nausea with vomiting, unspecified; E87.6 Hypokalemia; I50.9 Heart failure, unspecified; I25.10 Atherosclerotic heart disease of native coronary artery without angina pectoris; E78.00 Pure hypercholesterolemia, unspecified; I11.0 Hypertensive heart disease with heart failure; Z88.0 Allergy status to penicillin; Z88.3 Allergy status to other anti-infective agents; I25.2 Old myocardial infarction; Z90.49 Acquired absence of other specified parts of digestive tract
CPT/HCPCS: 93005; 94640; 99284; 96361; 96375; 96365; 96366; 36415; 82553; 82550; 83690; 83735; 85025; 80053; 81001; 84484; 71010; 93010; J2405; J3480; J7030; A9270 ×2; J7620

== ENCOUNTER 2017-05-03 17:24 | Inpatient (IN) | payer MEDICARE, OTHER ==
--- NOTE | 2017-05-03 18:57 | ER Document Report ---
ED General - General Chief Complaint: Chest Pain Stated Complaint: CHEST PAIN Time Seen by Provider: 05/03/17 18:29 Notes: Patient is a 71 year old female with a past medical history of hypertension, smoking, and congestive heart failure who presents with an episode of chest pain now resolved. Patient states approximately 1 hour prior to arrival she did develop an episode of chest pain in which she had a pressure-like sensation in the retrosternal region on the left side of her chest. This was associated with diaphoresis and nausea without vomiting. She did contact EMS approximately 15 minutes after the episode started. She did receive nitroglycerin and aspirin in route to the hospital. States that the nitroglycerin did relieve her chest pain. She has no history of similar chest pain in the past. She notes that when the pain was present nothing seemed to trigger it and it was only relieved by the nitroglycerin. She has no prior history of ACS or known coronary artery disease. TRAVEL OUTSIDE OF THE [place] IN LAST 30 DAYS: No - Related Data Allergies/Adverse Reactions: amoxicillin [Amoxicillin] Allergy (Verified 04/15/17 21:02) erythromycin base [Erythromycin Base] Allergy (Verified 04/15/17 21:02) Potassium Clavulanate * [From Augmentin] Allergy (Verified 04/15/17 21:02) Past Medical History - General Information source: Patient - Social History Smoking Status: Former Smoker Chew tobacco use (# tins/day): No Frequency of alcohol use: None Drug Abuse: None Lives with: Alone Family History: Malignancy - Lung cancer Patient has suicidal ideation: No Patient has homicidal ideation: No - Past Medical History Cardiac Medical History: Reports: Hx Congestive Heart Failure, Hx Coronary Artery Disease, Hx Heart Attack, Hx Hypercholesterolemia, Hx Hypertension Pulmonary Medical History: Reports: Hx Asthma, Hx COPD - O2 dependent at night and as needed during the day, Hx Pneumonia Endocrine Medical History: Reports: Hx Hypothyroidism Renal/ Medical History: Denies: Hx Peritoneal Dialysis Malignancy Medical History: Reports: Hx Brain Cancer - Lung cancer with brain metastases, 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 Musculoskeltal Medical History: Reports Hx Arthritis, Reports Hx Musculoskeletal Deformity, Reports Hx Musculoskeletal Trauma Psychiatric Medical History: Reports: Hx Depression Past Surgical History: Reports: Hx Cholecystectomy, Hx Orthopedic Surgery - Foot surgery - Immunizations Hx Diphtheria, Pertussis, Tetanus Vaccination: Yes Hx Pneumococcal Vaccination: 08/30/12 Review of Systems - Review of Systems Notes: Constitutional: Negative for fever. HENT: Negative for sore throat. Eyes: Negative for visual changes. Cardiovascular: Positive for chest pain. Respiratory: Negative for shortness of breath. Gastrointestinal: Negative for abdominal pain, vomiting or diarrhea. Genitourinary: Negative for dysuria. Musculoskeletal: Negative for back pain. Skin: Negative for rash. Neurological: Negative for headaches, weakness or numbness. 10 point ROS negative except as marked above and in HPI. Physical Exam - Vital signs Vitals: Resp BP Pulse Ox 20 75/62 L 96 05/03/17 18:01 05/03/17 18:01 05/03/17 18:01 Interpretation: Normal Notes: PHYSICAL EXAMINATION: GENERAL: Well-appearing, well-nourished and in no acute distress. HEAD: Atraumatic, normocephalic. EYES: Pupils equal round and reactive to light, extraocular movements intact, sclera anicteric, conjunctiva are normal. ENT: nares patent, oropharynx clear without exudates. Moist mucous membranes. NECK: Normal range of motion, supple without lymphadenopathy LUNGS: Breath sounds clear to auscultation bilaterally and equal. No wheezes rales or rhonchi. HEART: Regular rate and rhythm without murmurs ABDOMEN: Soft, nontender, normoactive bowel sounds. No guarding, no rebound. No masses appreciated. EXTREMITIES: Normal range of motion, no pitting or edema. No cyanosis. NEUROLOGICAL: No focal neurological deficits. Moves all extremities spontaneously and on command. PSYCH: Normal mood, normal affect. SKIN: Warm, Dry, normal turgor, no rashes or lesions noted. Course - Re-evaluation Re-evalutation: 05/03/17 18:56 Patient presents with chest pain concerning for possible ACS although initial EKG is without acute ischemic changes. Patient did have an acute onset of left retrosternal chest pain without radiation with associated diaphoresis and nausea. Her chest pain did resolve enroute to the hospital with 1 sublingual nitroglycerin. She does have multiple risk factors including tobacco use, obesity, hyperlipidemia, and a prior history of CHF although she has no prior history of ACS. She has never had a stress test or cardiac catheterization per her report. Patient will required hospitalization as her initial heart score is 6. 05/04/17 02:00 Continue to await hospitalist acceptance of admission. Both troponins have been obtained are normal. A third troponin is pending at this time. Chest x- ray is noted to show possible hilar mass although I do not believe this is related to patient's presentation. This finding will be forwarded to the accepting physician. - Vital Signs Vital signs: Temp Pulse Resp BP Pulse Ox 19 103/60 94 05/04/17 02:01 05/04/17 02:01 05/04/17 02:01 - Laboratory Result Diagrams: 05/03/17 20:40 05/03/17 17:50 Laboratory results interpreted by me: 05/03/17 05/03/17 17:50 20:40 WBC 3.9 L RBC 3.25 L Hgb 10.6 L Hct 30.5 L Monocytes % 15.9 H Potassium 3.2 L Est GFR (Non-Af Amer) 58 L - Diagnostic Test Radiology reviewed: Image reviewed, Reports reviewed Radiology results interpreted by me: 05/04/17 02:00 Chest x-ray: No acute pneumothorax or infiltrate. - EKG Interpretation by Me Additional EKG results interpreted by me: 05/04/17 02:01 Sinus rhythm. Rate 99. Right bundle branch block is present. No ST elevations or depressions. Discharge - Discharge Clinical Impression: Chest pain Qualifiers: Chest pain type: unspecified Qualified Code(s): R07.9 - Chest pain, unspecified Condition: Fair Disposition: ADMITTED OBSERVATION Admitting Provider: Hospitalist [facility] Unit Admitted: Telemetry
--- NOTE | 2017-05-03 19:05 | RADIOLOGY REPORT (SQ) ---
EXAM DESCRIPTION: CHEST SINGLE VIEW COMPLETED DATE/TIME: 05/03/2017 6:49 pm REASON FOR STUDY: chest pain COMPARISON: 05/02/2017 EXAM PARAMETERS: NUMBER OF VIEWS: One view. TECHNIQUE: Single frontal radiographic view of the chest acquired. RADIATION DOSE: NA LIMITATIONS: None. FINDINGS: LUNGS AND PLEURA: Cannot exclude a limited infiltrate in the medial aspect of right lung b ase. MEDIASTINUM AND HILAR STRUCTURES: There is a masslike density in the right hilum with distortion of t he hilum. HEART AND VASCULAR STRUCTURES: Heart size is borderline. No evidence of failure. BONES: No acute findings. HARDWARE: None in the chest. OTHER: No other significant finding. IMPRESSION: 1. Question right hilar mass. 2. Possible limited right lower lobe pneumonia. TECHNICAL DOCUMENTATION: JOB ID: [id number]
[2017-05-03 19:23] LABS: ANION GAP 9 (5-19); BLOOD UREA NITROGEN 13 mg/dL (7-20); CALCIUM 8.4 mg/dL (8.4-10.2); CARBON DIOXIDE 29 mmol/L (22-30); CHLORIDE 104 mmol/L (98-107); CREATINE KINASE 121 U/L (30-135); CREATININE RESULT 0.95 mg/dL (0.52-1.25); GLUCOSE 91 mg/dL (75-110); POTASSIUM 3.2 mmol/L (3.6-5.0); SODIUM 141.5 mmol/L (137-145)
[2017-05-03 19:36] LABS: CREATINE KINASE MB 2.87 ng/mL (<4.55)
[2017-05-03 19:39] LABS: TROPONIN I < 0.012 ng/mL
[2017-05-03 21:09] LABS: ABSOLUTE EOSINOPHILS # (AUTO) 0.1 10^3/uL (0.0-0.6); ABSOLUTE LYMPHOCYTES (AUTO) 0.7 10^3/uL (0.5-4.7); ABSOLUTE MONOCYTES (AUTO) 0.6 10^3/uL (0.1-1.4); ABSOLUTE NEUT (AUTO) 2.5 10^3/uL (1.7-8.2); BASOPHILS % (AUTO) 0.3 % (0-2); EOSINOPHILS % (AUTO) 3.1 % (0-6); HEMATOCRIT 30.5 % (36.0-47.0); HEMOGLOBIN 10.6 g/dL (12.0-15.5); HGB HCT DIFFERENCE 1.3; LYMPHOCYTES % (AUTO) 18.5 % (13-45); MEAN CORPUSCULAR HEMOGLOBIN 32.7 pg (27.0-33.4); MEAN CORPUSCULAR HGB CONC 34.9 g/dL (32.0-36.0); MEAN CORPUSCULAR VOLUME 94 fl (80-97); MONOCYTES % (AUTO) 15.9 % (3-13); RED BLOOD COUNT 3.25 10^6/uL (3.72-5.28); SEGMENTED NEUTROPHILS % (AUTO) 62.2 % (42-78); WHITE BLOOD COUNT 3.9 10^3/uL (4.0-10.5)
[2017-05-04] MEDS ORDERED: PROMETHAZINE HCL 25 MG TABLET PO PRN (02:26)
[2017-05-04] MEDS ORDERED: ACETAMINOPHEN 325 MG TABLET PO PRN (02:26)
[2017-05-04] MEDS ORDERED: POTASSI CL 20 MEQ/50 ML RIDER 20 MEQ/50 ML RTUPB IV SCH (02:30)
[2017-05-04 02:33] LABS: ADD ON TESTING BLD IN LAB ACKNOWLEDGE
[2017-05-04 02:58] LABS: ALANINE AMINOTRANSFERASE 27 U/L (9-52); ALBUMIN 2.9 g/dL (3.5-5.0); ALKALINE PHOSPHATASE 60 U/L (38-126); ASPARTATE AMINO TRANSFERASE 24 U/L (14-36); BILIRUBIN,DIRECT 0.2 mg/dL (0.0-0.4); BILIRUBIN,TOTAL 0.2 mg/dL (0.2-1.3); MAGNESIUM 1.9 mg/dL (1.6-2.3); TOTAL PROTEIN 5.1 g/dL (6.3-8.2)
[2017-05-04 03:14] LABS: CHOLESTEROL 148.45 mg/dL (0-200); Direct HDL 42 mg/dL (>40); TRIGLYCERIDES 94 mg/dL (<150)
[2017-05-04 03:25] LABS: DIRECT LDL 98 mg/dL (<100)
[2017-05-04] MEDS ORDERED: POTASSIUM CHLORIDE 20 MEQ/15 ML UDCUP PO SCH (04:00)
[2017-05-04] MEDS: IPRATROPIUM/ALBUTEROL 0.5-2.5 MG/3 ML AMPUL NEB PRN (04:35)
[2017-05-04] MEDS ORDERED: ALBUTEROL SULFATE 0.083% NEB 2.5 MG/3 ML AMPUL NEB PRN (05:48)
[2017-05-04] MEDS ORDERED: GUAIFENESIN SYRP 200 MG/10 ML UDC PO PRN (05:48)
[2017-05-04] MEDS ORDERED: DOXYCYCLINE HYCLATE 100 MG TABLET PO SCH ×2 (06:00→10:00)
[2017-05-04] MEDS ORDERED: INFLUENZA ADLT QUAD (36MOS+) 2017-18 VAC 0.5 ML SYR IM PRN (06:06)
[2017-05-04] MEDS ORDERED: AZTREONAM INJ 1 GM VIAL IV SCH (06:15)
--- NOTE | 2017-05-04 06:24 | PDOC H&P ---
History of Present Illness Admission Date/PCP: 05/04/17 02:45 Dr. Collins--[facility] Oncology--?? Patient complains of: Chest pain History of Present Illness: TRENTON DIALLO is a 71 year old female with reported underlying congestive heart failure, hypertension, no previous history of myocardial infarction, pulmonary embolus, DVT, along with underlying as needed home O2 dependent COPD who presents to the emergency room for evaluation of above complaint. Patient has been discussed with emergency room physician who evaluated the patient. Approximately hour prior to arrival in our emergency room, she developed an episode of retrosternal chest pain, bit more to the left with associated nausea without vomiting, and diaphoresis. Pressure-like sensation, without radiation. States she has never had this specific type discomfort before. Nothing in particular made the pain worse. Took 3 of her own baby aspirin. Was given another 3 baby aspirin by EMS, along with a single sublingual nitroglycerin. Chest pain resolved shortly thereafter and has not recurred. No recent long trip with prolonged inactivity, or unusual lower extremity swelling or tenderness. Does state that her chronic cough has been a bit more productive over the last 2 -3 days. Mostly yellow sputum. States she has "chronic" fever and chills. Also states that she wheezes on most days. Hospitalized on our service the through 02 February of this year, with discharge diagnoses including leukopenia, hypokalemia, and COPD exacerbation. Copies of the history and physical and discharge summary have been reviewed. Was seen in our emergency room the evening of the third for a number of complaints and was noted to be hypokalemic at that time also. Looking back at her previous labs reveals repeated episodes of mild to moderate hypokalemia over the past several months. Currently resting quietly, chest pain-free. 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 Metastases were treated with radiation therapy. States she has been "cancer free" for a number of years. Sees her oncologist twice a year. Dictation via voice recognition software. Laboratory results are listed in [employer] and are reviewed. X-ray summary results are listed below, with full report(s) reviewed. . EKG reviewed and compared to prior tracing from the third of this month. Social history/personal habits: . Granddaughter lives with her. Retired. No tobacco use for 15 years. No alcohol or illicit drug use. Allergies/adverse reactions are listed in [employer] and are reviewed. Home medications initially autopopulated into [employer] may not accurately reflect patient's true medications, dosages, and/or frequencies. process controls technician has reconciled medications. REVIEW OF SYSTEMS: Constitutional: See history and present illness. Eyes: Wears glasses. ENT: No swallowing problems or complaints. Denies hearing loss. Pulmonary: See history and present illness. Cardiovascular: See history and present illness. Gastrointestinal: See history and present illness. Skin: No current complaints, including rashes. Hematologic: Easy bruising. Neurologic: No current complaints, including numbness or tingling. Musculoskeletal: Joint pain from arthritis. Psychiatric: Mild occasional depression. Denies suicidal or homicidal ideation. Endocrine: No current complaints, including polyuria. Genitourinary: No current complaints, including dysuria. PHYSICAL EXAMINATION: 5 feet 6 inches tall. 87 kg. BMI 31 kg/m. Blood pressure 101/53. Pulse 105 and regular. 97% saturation on room air. Respirations are 20 and unlabored. Temperature 98.3. Female emergency room nurse Camila is present. Slightly obese otherwise well-nourished well-developed female appearing approximately her stated age. Pleasant awake alert and cooperative. No obvious distress other than perhaps mildly anxious. Skin is warm and dry. No grossly obvious evidence of rash in areas of skin examined. No subcutaneous nodules palpated. ENT: Hearing grossly normal to normal conversation. Tongue midline on protrusion pink and slightly tacky. Eyes: No scleral icterus. Pupils equal and reactive to light at 4 mm. [place] conjunctivae. Neck is supple and nontender to gentle active range of motion and palpation. Midline trachea. No palpable thyroid nodule mass enlargement or tenderness. Lymphatic: No palpable cervical or clavicular nodes. Neck and lymphatic exams limited by patient body habitus. Psychiatric: Reasonable insight into acute and chronic medical issues. Oriented to time location and why here. Lungs: Auscultation reveals equal breath sounds bilaterally. No use of accessory respiratory muscles. Faint very brief expiratory wheezing in the lower half of each hemithorax. Cardiovascular: Heart regular rate and rhythm, without gallop murmur or rub. No carotid or abdominal aortic bruits. Very mild bilateral symmetric very slightly pitting ankle and pedal edema. Faintly palpable dorsalis pedis pulses. Abdomen:soft slightly distended nontender with positive bowel sounds. Unable to adequately evaluate abdomen for masses or organomegaly due to distention. Extremities: Feet are warm and dry. No calf tenderness to compression. No grossly obvious visual evidence of calf swelling. Gentle manipulation of lower extremities fails to reveal any obvious evidence of injury or instability to knees hips or ankles. Neurologic: Moves upper extremities grossly normally. Patellar reflexes absent. Absent Babinski. Light touch is intact at feet. Dorsiflexion and plantarflexion of feet 5 / 5 and symmetric. Past Medical History Cardiac Medical History: Reports: Congestive Heart Failure, Coronary Artery Disease, Myocardial Infarction, Hypertension Denies: DVT, Hyperlipidema, Pulmonary Embolism Pulmonary Medical History: Reports: Asthma, Chronic Obstructive Pulmonary Disease (COPD) - O2 dependent at night and as needed during the day, Pneumonia Denies: Sleep Apnea EENT Medical History: Reports: Eyes - Glasses Denies: Ears, Throat Neurological Medical History: Reports: Other - Previous TIA Denies: Hemorrhagic CVA, Ischemic CVA, Seizures Endocrine Medical History: Reports: Hypothyroidism Denies: Diabetes Mellitus Type 1, Diabetes Mellitus Type 2, Hyperthyroidism Renal/ Medical History: Reports: Other - History of nephrolithiasis Malignancy Medical History: Reports: Brain Cancer - Lung cancer with brain metastases, 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 GI Medical History: Reports: Gastroesophageal Reflux Disease Denies: Cirrhosis, Hepatitis, Peptic Ulcer Disease Musculoskeltal Medical History: Reports: Arthritis Skin Medical History: Reports: None Psychiatric Medical History: Reports: Depression Denies: Alcohol Dependency, General Anxiety Disorder, Substance Abuse, Tobacco Dependency Hematology: Reports: Other - Easy bruising Infectious Medical History: Denies: Hepatitis B, Hepatitis C Past Surgical History Past Surgical History: Reports: Cholecystectomy, Orthopedic Surgery - Foot surgery Social History Information Source: Patient, Emergency Med Personnel, [facility] Records Lives with: Family Smoking Status: Former Smoker Frequency of Alcohol Use: None Hx Recreational Drug Use: No Drugs: None Hx Prescription Drug Abuse: No - Advance Directive Resuscitation Status: Full Code Surrogate healthcare decision maker:: Her son Jason Diallo Family History Family History: Malignancy - Lung cancer Parental Family History Reviewed: Yes - Parents of cancer Children Family History Reviewed: Yes - 2 living children, uncertain problems. 2 children Sibling(s) Family History Reviewed.: Yes - Uncertain health status Medication/Allergy Home Medications: Acetaminophen [Pain Relief] 325 mg PO Q8HP PRN 01/31/17 Albuterol Sulfate [Albuterol Sulfate 2.5mg/3 mL] 1 vial NEB Q6HP PRN 01/31/17 Aspirin [Aspirin 81 mg Chewable Tablet] 81 mg PO DAILY 01/31/17 Fluticasone/Salmeterol [Advair 500-50 Diskus 28 Dose] 1 puff IH Q12 01/31/17 Furosemide [Lasix] 40 mg PO DAILY 01/31/17 Lansoprazole [Prevacid] 15 mg PO DAILY 01/31/17 Levalbuterol Tartrate [Xopenex Hfa] 2 puff IH Q6HP PRN 01/31/17 Levothyroxine Sodium [Synthroid 0.05 mg Tablet] 0.05 mg PO DAILY 01/31/17 Tiotropium [place] [Spiriva Handihaler 18 mcg/dose (30 Dose)] 1 cap IH DAILY 11/14 Famotidine [Pepcid 20 mg Tablet] 20 mg PO Q12 #14 tablet 02/02/17 Metoprolol Tartrate [Lopressor 25 mg Tablet] 12.5 mg PO Q12 #14 tablet 02/02/17 Albuterol Sulfate [Proair HFA Inhalation Aerosol 8.5 gm MDI] 2 puff IH Q4H PRN # 1 mdi 02/25/17 Ondansetron [Zofran Odt 4 mg Tablet] 1 tab PO Q4H PRN #15 tab.rapdis 05/02/17 Potassium Chloride 20 meq PO DAILY #10 capsule.er 05/02/17 Allergies/Adverse Reactions: amoxicillin [Amoxicillin] Adverse Reaction (Verified 05/04/17 06:14) visual hallucinations erythromycin base [Erythromycin Base] Adverse Reaction (Verified 05/04/17 06:14) visual hallucinations Potassium Clavulanate * [From Augmentin] Adverse Reaction (Verified 05/04/17 06: 14) visual hallucinations Physical Exam Vital Signs: Temp Pulse Resp BP Pulse Ox 98.3 F 18 115/75 97 05/04/17 02:41 05/04/17 05:01 05/04/17 05:01 05/04/17 05:01 Results Impressions: Chest X-Ray 05/03/17 18:29 IMPRESSION: 1. Question right hilar mass. 2. Possible limited right lower lobe pneumonia. Assessment & Plan - Diagnosis (1) COPD exacerbation Is this a current diagnosis for this admission?: Yes Plan: Since patient clinically doing so well, will forego steroids at this point in time. (2) Chest pain Qualifiers: Chest pain type: unspecified Qualified Code(s): R07.9 - Chest pain, unspecified Is this a current diagnosis for this admission?: Yes Plan: Patient will be placed in observation bed under chest pain protocol. Patient understands to notify staff should chest pain recur. Serial troponin . Repeat EKG. lipid panel. I have strongly encouraged patient not to get out of bed without notifying staff , to avoid a fall with injury. Knee high SCDs for DVT prophylaxis. Impression and plans were discussed with patient, who concurs . Time spent in evaluation and management of patient: 83 minutes. (3) Hypokalemia Is this a current diagnosis for this admission?: Yes Plan: Potassium replacement, with follow-up chemistry. (4) RLL pneumonia Qualifiers: Pneumonia type: due to unspecified organism Qualified Code(s): J18.1 - Lobar pneumonia, unspecified organism Is this a current diagnosis for this admission?: Yes Plan: Patient will be admitted under pneumonia protocol. Incentive spirometry twice a day. Scheduled DuoNeb's. As needed albuterol nebs. Antibiotics will consist of oral doxycycline along with aztreonam. (5) History of cancer metastatic to brain Is this a current diagnosis for this admission?: Yes Plan: Most recent CT scan of brain is July 2015. Discussed with daytime hospitalist team prior to starting Lovenox or heparin. Options at this point include contacting her oncologist versus repeat CT scan of brain. (6) Hypothyroid Qualifiers: Hypothyroidism type: unspecified Qualified Code(s): E03.9 - Hypothyroidism , unspecified Is this a current diagnosis for this admission?: Yes Plan: Resume home medications as appropriate once these have been determined and reviewed. - Time Time Spent: Greater than 70 Minutes Medications reviewed and adjusted accordingly: Yes Anticipated discharge: Home Within: within 48 hours
[2017-05-04] MEDS: IPRATROPIUM/ALBUTEROL 0.5-2.5 MG/3 ML AMPUL NEB SCH ×3 (08:31→19:49)
--- NOTE | 2017-05-04 09:14 | EKG REPORT ---
SEVERITY:- ABNORMAL ECG - SINUS RHYTHM RIGHT BUNDLE BRANCH BLOCK : Confirmed by: Susan Mishra MD 04-May-2017 09:14:14
--- NOTE | 2017-05-04 09:14 | EKG REPORT ---
SEVERITY:- ABNORMAL ECG - SINUS TACHYCARDIA ATRIAL PREMATURE COMPLEX RIGHT BUNDLE BRANCH BLOCK : Confirmed by: Susan Mishra MD 04-May-2017 09:14:08
[2017-05-04] MEDS ORDERED: (PENDING PHARMACY ID) (Lansoprazole [Prevacid] 15 MG) PO SCH (10:00)
--- NOTE | 2017-05-04 11:07 | RADIOLOGY REPORT (SQ) ---
EXAM DESCRIPTION: CTA CHEST COMPLETED DATE/TIME: 05/04/2017 10:23 am REASON FOR STUDY: ?r hiilar mass D64.9 ANEMIA, UNSPECIFIED COMPARISON: 09/06/2016 TECHNIQUE: CT scan of the chest performed using helical scanning technique with dynamic intravenous contrast injection. Images reviewed with lung, soft tissue and bone windows. Reconstructed coronal and sagittal MPR images reviewed. Additional 3 dimensional post-processing performed to develop Maximal Intensity Projection images ([place] P). All images stored on PACS. All CT scanners at this facility use dose modulation, iterative reconstruction, and/or weight based d osing when appropriate to reduce radiation dose to as low as reasonably achievable (ALARA). [facility]: Dose Right [facility]: CareDose [facility]: Dose Right [facility]: Teradose 4D [facility]: inEarth CONTRAST TYPE AND DOSE: contrast/concentration: Isovue 370.00 mg/ml; Total Contrast Delivered: 75.0 ml; Total Saline Delivered: 100.0 ml Contrast bolus optimized for the pulmonary arteries. Not diagnostic for the aorta. RENAL FUNCTION: BUN 13, creatinine 0.95 RADIATION DOSE: Up-to-date CT equipment and radiation dose reduction techniques were employed. CTDIv ol: 16.5 - 29.0 mGy. DLP: 1119 mGy-cm. . LIMITATIONS: None. FINDINGS: LUNGS AND PLEURA: There is persistent right perihilar airspace disease. This may represen t post radiation change. Clinical correlation is needed. No consolidation. There stable scarring i n the left base. AORTA AND GREAT VESSELS: No aneurysm. Contrast bolus not optimized for the aorta. HEART: There is pericardial thickening and/or small pericardial effusion new from prior study. This is located anteriorly. No significant coronary artery calcifications. PULMONARY ARTERIES: No emboli visualized in the main pulmonary arteries or the segmental branches. HILAR AND MEDIASTINAL STRUCTURES: No identified masses or abnormal nodes. HARDWARE: None in the chest. UPPER ABDOMEN: No significant findings. Limited exam. THYROID AND OTHER SOFT TISSUES: Pneumobilia remains. BONES: No acute or significant finding. 3D MIPS: Confirm above findings. OTHER: No other significant finding. IMPRESSION: 1. No pulmonary emboli. 2. Persistent right perihilar and left lower lobe airspace disease most likely scarring. COMMENT: Quality ID # [id number]: Final reports with documentation of one or more dose reduction techniques (e.g., Automated exposure control, adjustment of the mA and/or kV according to patient size, use of iterative reconstruction technique) TECHNICAL DOCUMENTATION: JOB ID: [id number] [employer]- All Rights Reserved
[2017-05-04 11:35] LABS: MEAN CORPUSCULAR VOLUME 94 fl (80-97)
[2017-05-04 11:43] LABS: ABSOLUTE EOSINOPHILS # (AUTO) 0.1 10^3/uL (0.0-0.6); ABSOLUTE LYMPHOCYTES (AUTO) 0.6 10^3/uL (0.5-4.7); ABSOLUTE MONOCYTES (AUTO) 0.5 10^3/uL (0.1-1.4); ABSOLUTE NEUT (AUTO) 1.7 10^3/uL (1.7-8.2); BASOPHILS % (AUTO) 0.1 % (0-2); EOSINOPHILS % (AUTO) 3.7 % (0-6); HEMATOCRIT 29.7 % (36.0-47.0); HEMOGLOBIN 10.3 g/dL (12.0-15.5); HGB HCT DIFFERENCE 1.2; MEAN CORPUSCULAR HEMOGLOBIN 32.5 pg (27.0-33.4); MEAN CORPUSCULAR HGB CONC 34.5 g/dL (32.0-36.0); MONOCYTES % (AUTO) 16.9 % (3-13); RED BLOOD COUNT 3.16 10^6/uL (3.72-5.28); RED CELL DISTRIBUTION WIDTH 14.1 % (11.5-14.0); SEGMENTED NEUTROPHILS % (AUTO) 58.3 % (42-78)
[2017-05-04 11:45] LABS: WHITE BLOOD COUNT 2.9 10^3/uL (4.0-10.5)
[2017-05-04 11:57] LABS: ANION GAP 7 (5-19); BLOOD UREA NITROGEN 13 mg/dL (7-20); CALCIUM 8.9 mg/dL (8.4-10.2); CARBON DIOXIDE 28 mmol/L (22-30); CHLORIDE 104 mmol/L (98-107); CREATININE RESULT 0.85 mg/dL (0.52-1.25); GLUCOSE 98 mg/dL (75-110); POTASSIUM 3.6 mmol/L (3.6-5.0); SODIUM 139.2 mmol/L (137-145)
[2017-05-04] MEDS: ENOXAPARIN SODIUM INJ 40 MG/0.4 ML DISP.SYRIN SUBCUT SCH (12:01)
[2017-05-04] MEDS: ASPIRIN 81 MG TABLET, CHEWABLE PO SCH (12:02)
[2017-05-04] MEDS: LEVOTHYROXINE SODIUM 0.05 MG TABLET PO SCH (12:03)
[2017-05-04] MEDS: FAMOTIDINE 20 MG TABLET PO SCH ×2 (12:05→21:47)
[2017-05-04] MEDS: LANSOPRAZOLE 15 MG TAB.RAP.DR PO SCH (12:06)
[2017-05-04] MEDS: FUROSEMIDE 40 MG TABLET PO SCH (12:07)
[2017-05-04] MEDS: METOPROLOL TARTRATE 25 MG TABLET PO SCH ×2 (12:08→21:47)
[2017-05-04] MEDS: TIOTROPIUM BROMIDE DPI 5 CAP/KIT (18 MCG/CAP) IH SCH (12:09)
[2017-05-04] MEDS: FLUTICASONE/SALMETEROL DISKUS 500-50 MCG/DOSE IH SCH (12:09)
[2017-05-04] MEDS ORDERED: VANCOMYCIN HCL INJ 500 MG VIAL PO ONE (13:30)
[2017-05-04] MEDS: AZTREONAM 1 GM in DEXTROSE 5%-WATER 50 ML IV SCH ×2 (14:52→15:16)
[2017-05-04] MEDS: METRONIDAZOLE 500 MG/NS RTU 100 ML IV SCH ×2 (15:16→19:56)
--- NOTE | 2017-05-04 17:41 | PDOC PROGRESS REPORT ---
Subjective Progress Note for:: 05/04/17 Subjective:: Patient reports that she was having some green purulent sputum prior to admission. Patient apparently had several loose bowel movements today which tested positive for C. difficile. Patient denies chest pain, shortness of breath, abdominal pain, nausea, vomiting, fevers, chills, constipation, headache , new onset weakness. Patient reports she is in general feeling poorly. Physical Exam Vital Signs: Temp Pulse Resp BP Pulse Ox 97.9 F 92 14 107/66 98 05/04/17 15:18 05/04/17 15:18 05/04/17 15:18 05/04/17 15:18 05/04/17 15:18 Intake & Output 05/03/17 05/04/17 05/05/17 06:59 06:59 06:59 Intake Total 600 Balance 600 Weight 88.7 kg Exam: General: Awake alert and oriented x3, no acute respiratory distress HEENT: AT/NC, PERRL, EOMI, oropharynx is moist, pink, no scleral icterus, no conjunctival injection Neck: No JVD, trachea midline Chest: light bilateral end expiratory wheezing CV: Regular rate and rhythm, normal S1 and S2, no murmur, rub, or gallop Abdomen: Soft, nontender to palpation, mildly distended, hyperactive bowel sounds; no rebound, rigidity, or guarding Extremities: No cyanosis, clubbing or edema Neuro: Cranial nerves II through XII are grossly intact without focal deficits; awake alert and oriented x3 Psych: flat mood and affect Results Laboratory Results: 05/04/17 11:00 05/04/17 11:00 05/04/17 05/04/17 11:00 11:00 WBC 2.9 L RBC 3.16 L Hgb 10.3 L Hct 29.7 L MCV 94 MCH 32.5 MCHC 34.5 RDW 14.1 H Plt Count 190 Seg Neutrophils % 58.3 Lymphocytes % 21.0 Monocytes % 16.9 H Eosinophils % 3.7 Basophils % 0.1 Absolute Neutrophils 1.7 Absolute Lymphocytes 0.6 Absolute Monocytes 0.5 Absolute Eosinophils 0.1 Absolute Basophils 0.0 Sodium 139.2 Potassium 3.6 Chloride 104 Carbon Dioxide 28 Anion Gap 7 BUN 13 Creatinine 0.85 Est GFR ( Amer) > 60 Est GFR (Non-Af Amer) > 60 Glucose 98 Calcium 8.9 05/04/17 11:00 Troponin I < 0.012 Impressions: Chest X-Ray 05/03/17 18:29 IMPRESSION: 1. Question right hilar mass. 2. Possible limited right lower lobe pneumonia. Chest/Abdomen CTA 05/04/17 00:00 IMPRESSION: 1. No pulmonary emboli. 2. Persistent right perihilar and left lower lobe airspace disease most likely scarring. Assessment & Plan - Diagnosis (1) Sepsis Qualifiers: Sepsis type: sepsis due to unspecified organism Qualified Code(s): A41.9 - Sepsis, unspecified organism Is this a current diagnosis for this admission?: Yes Plan: Patient has sepsis but this is likely secondary to C. difficile colitis. It was thought, that patient had pneumonia, but repeat CAT scan reveals this is likely radiation damage (2) C. difficile colitis Is this a current diagnosis for this admission?: Yes Plan: Place patient on IV Flagyl as well as oral vancomycin for her sepsis with C. difficile colitis (3) Hypokalemia Is this a current diagnosis for this admission?: Yes (4) Acute hypoxemic respiratory failure Is this a current diagnosis for this admission?: Yes Plan: Continue oxygen (5) Anemia Qualifiers: Anemia type: unspecified type Qualified Code(s): D64.9 - Anemia, unspecified Is this a current diagnosis for this admission?: Yes Plan: , Monitor and transfuse if drops below 8 (6) Chronic back pain Qualifiers: Back pain location: low back pain Back pain laterality: unspecified Is this a current diagnosis for this admission?: Yes Plan: We will place patient on Percocet as needed (7) Hypertension Qualifiers: Hypertension type: essential hypertension Qualified Code(s): I10 - Essential (primary) hypertension Is this a current diagnosis for this admission?: Yes Plan: Generic Name Dose Route Start Last Admin Trade Name Freq PRN Reason Stop Dose Admin Metoprolol Tartrate 12.5 mg 05/04/17 10:00 05/04/17 12:08 Lopressor 25 Mg Tablet PO 06/03/17 09:59 12.5 mg Q12 SAM (8) Hypothyroid Qualifiers: Hypothyroidism type: unspecified Qualified Code(s): E03.9 - Hypothyroidism , unspecified Is this a current diagnosis for this admission?: Yes Plan: Continue current dose 05/03/17 17:50 TSH 2.20 (9) Obesity with serious comorbidity Qualifiers: Obesity type: due to excess calories Obesity classification: adult class 1 (BMI 30 ? 34.9) Body mass index: BMI 31.0-31.9 Qualified Code(s): E66.09 - Other obesity due to excess calories; Z68.31 - Body mass index (BMI) 31.0-31.9, adult; Z68.31 - Body mass index (BMI) 31.0-31.9, adult Is this a current diagnosis for this admission?: Yes - Time Time Spent with patient: 25-34 minutes Medications reviewed and adjusted accordingly: Yes Anticipated discharge: Home with Homehealth Within: within 48 hours
[2017-05-04] MEDS: VANCOMYCIN HCL INJ 500 MG VIAL PO SCH (21:47)
[2017-05-05] MEDS: VANCOMYCIN HCL INJ 500 MG VIAL PO SCH ×4 (02:31→20:29)
[2017-05-05] MEDS: METRONIDAZOLE 500 MG/NS RTU 100 ML IV SCH ×4 (02:32→20:29)
[2017-05-05] MEDS: IPRATROPIUM/ALBUTEROL 0.5-2.5 MG/3 ML AMPUL NEB SCH ×3 (07:55→20:15)
[2017-05-05] MEDS: FUROSEMIDE 40 MG TABLET PO SCH (09:17)
[2017-05-05] MEDS: LEVOTHYROXINE SODIUM 0.05 MG TABLET PO SCH (09:18)
[2017-05-05] MEDS: FAMOTIDINE 20 MG TABLET PO SCH ×2 (09:18→21:22)
[2017-05-05] MEDS: ASPIRIN 81 MG TABLET, CHEWABLE PO SCH (09:19)
[2017-05-05] MEDS: LANSOPRAZOLE 15 MG TAB.RAP.DR PO SCH (09:19)
[2017-05-05] MEDS: ENOXAPARIN SODIUM INJ 40 MG/0.4 ML DISP.SYRIN SUBCUT SCH (09:20)
[2017-05-05] MEDS: TIOTROPIUM BROMIDE DPI 5 CAP/KIT (18 MCG/CAP) IH SCH (09:25)
[2017-05-05] MEDS: FLUTICASONE/SALMETEROL DISKUS 500-50 MCG/DOSE IH SCH ×2 (09:27→21:21)
[2017-05-05] MEDS: METOPROLOL TARTRATE 25 MG TABLET PO SCH ×2 (09:28→21:22)
[2017-05-05] MEDS ORDERED: NORMAL SALINE 1000 ML 1,000 ML IV PRN (15:34)
[2017-05-05] MEDS ORDERED: OXYCODONE-ACETAMINOPHEN 5-325 MG TABLET PO PRN (16:15)
--- NOTE | 2017-05-05 16:17 | PDOC PROGRESS REPORT ---
Subjective Progress Note for:: 05/05/17 Subjective:: She is seen earlier today on morning rounds. Patient reports she has had in excess of 10 stools today. She is not eating, but reports she does not like fish. I encouraged patient to order her own food through the bistro. Patient complains of abdominal pain, nausea, and diarrhea. Patient denies chest pain, shortness of breath,vomiting, fevers, chills, constipation, headache, new onset weakness. Physical Exam Vital Signs: Temp Pulse Resp BP Pulse Ox 98.2 F 95 14 118/60 97 05/05/17 03:34 05/05/17 07:00 05/05/17 03:34 05/05/17 03:34 05/05/17 03:34 Intake & Output 05/04/17 05/05/17 05/06/17 06:59 06:59 06:59 Intake Total 840 Balance 840 Weight 88.7 kg 88.3 kg Exam: General: Awake alert and oriented x3, no acute respiratory distress HEENT: AT/NC, PERRL, EOMI, oropharynx is moist, pink, no scleral icterus, no conjunctival injection Neck: No JVD, trachea midline Chest: bilateral end expiratory wheezing, prolonged expiratory phase CV: Regular rate and rhythm, normal S1 and S2, no murmur, rub, or gallop Abdomen: Soft, mildly tender to palpation diffusely, mildly distended, hyperactive bowel sounds; no rebound, rigidity, or guarding Extremities: No cyanosis, clubbing or edema Neuro: Cranial nerves II through XII are grossly intact without focal deficits; awake alert and oriented x3 Psych: flat mood and affect Results Laboratory Results: 05/04/17 11:00 05/04/17 11:00 05/04/17 05/04/17 11:00 11:00 WBC 2.9 L RBC 3.16 L Hgb 10.3 L Hct 29.7 L MCV 94 MCH 32.5 MCHC 34.5 RDW 14.1 H Plt Count 190 Seg Neutrophils % 58.3 Lymphocytes % 21.0 Monocytes % 16.9 H Eosinophils % 3.7 Basophils % 0.1 Absolute Neutrophils 1.7 Absolute Lymphocytes 0.6 Absolute Monocytes 0.5 Absolute Eosinophils 0.1 Absolute Basophils 0.0 Sodium 139.2 Potassium 3.6 Chloride 104 Carbon Dioxide 28 Anion Gap 7 BUN 13 Creatinine 0.85 Est GFR ( Amer) > 60 Est GFR (Non-Af Amer) > 60 Glucose 98 Calcium 8.9 05/04/17 11:00 Troponin I < 0.012 Impressions: Chest X-Ray 05/03/17 18:29 IMPRESSION: 1. Question right hilar mass. 2. Possible limited right lower lobe pneumonia. Chest/Abdomen CTA 05/04/17 00:00 IMPRESSION: 1. No pulmonary emboli. 2. Persistent right perihilar and left lower lobe airspace disease most likely scarring. Assessment & Plan - Diagnosis (1) Sepsis Qualifiers: Sepsis type: sepsis due to unspecified organism Qualified Code(s): A41.9 - Sepsis, unspecified organism Is this a current diagnosis for this admission?: Yes Plan: Severe sepsis with hypotension which was responsive to fluids present on admission. Selected Entries 05/03/17 05/03/17 05/03/17 18:01 18:03 18:05 Heart Rate ( 97 Monitors) Respiratory 21 H Rate Blood Pressure 75/62 L 81/57 L Patient found to have C. difficile colitis. (2) C. difficile colitis Is this a current diagnosis for this admission?: Yes Plan: Due to her voluminous stools, patient continues to require IV fluids today to maintain her blood pressure Systolic greater than 90 and map greater than 65. Patient on IV Flagyl as well as oral vancomycin for her sepsis with C. difficile colitis (3) COPD exacerbation Is this a current diagnosis for this admission?: Yes Plan: Patient with mild COPD exacerbation. Initiate on prednisone 40 mg p.o. twice daily Nebulized treatments as needed. (4) Hypokalemia Is this a current diagnosis for this admission?: Yes Plan: Replete and recheck. Recheck magnesium (5) Acute hypoxemic respiratory failure Is this a current diagnosis for this admission?: Yes Plan: Continue oxygen Patient reports chronic hypoxemic respiratory failure requiring oxygen at night. (6) Anemia Qualifiers: Anemia type: unspecified type Qualified Code(s): D64.9 - Anemia, unspecified Is this a current diagnosis for this admission?: Yes Plan: , Monitor and transfuse if drops below 8 (7) Chronic back pain Qualifiers: Back pain location: low back pain Back pain laterality: unspecified Is this a current diagnosis for this admission?: Yes Plan: Patient on Percocet as needed (8) Hypertension Qualifiers: Hypertension type: essential hypertension Qualified Code(s): I10 - Essential (primary) hypertension Is this a current diagnosis for this admission?: Yes Plan: Patient currently mildly hypotensive, will have to reinitiate fluids. Have held her antihypertensives with the exception of metoprolol. (9) Hypothyroid Qualifiers: Hypothyroidism type: unspecified Qualified Code(s): E03.9 - Hypothyroidism , unspecified Is this a current diagnosis for this admission?: Yes Plan: Continue current dose 05/03/17 17:50 TSH 2.20 (10) Obesity with serious comorbidity Qualifiers: Obesity type: due to excess calories Obesity classification: adult class 1 (BMI 30 ? 34.9) Body mass index: BMI 31.0-31.9 Qualified Code(s): E66.09 - Other obesity due to excess calories; Z68.31 - Body mass index (BMI) 31.0-31.9, adult; Z68.31 - Body mass index (BMI) 31.0-31.9, adult Is this a current diagnosis for this admission?: Yes - Time Time Spent with patient: 25-34 minutes Medications reviewed and adjusted accordingly: Yes Anticipated discharge: Home with Homehealth Within: within 48 hours
[2017-05-05] MEDS: PREDNISONE 20 MG TABLET PO SCH (17:20)
[2017-05-06] MEDS: VANCOMYCIN HCL INJ 500 MG VIAL PO SCH ×4 (03:59→21:50)
[2017-05-06] MEDS: METRONIDAZOLE 500 MG/NS RTU 100 ML IV SCH ×4 (04:00→21:49)
[2017-05-06 05:16] LABS: ABSOLUTE LYMPHOCYTES (AUTO) 0.5 10^3/uL (0.5-4.7); ABSOLUTE MONOCYTES (AUTO) 0.2 10^3/uL (0.1-1.4); ABSOLUTE NEUT (AUTO) 3.2 10^3/uL (1.7-8.2); BASOPHILS % (AUTO) 0.1 % (0-2); EOSINOPHILS % (AUTO) 0.1 % (0-6); HEMATOCRIT 32.3 % (36.0-47.0); HEMOGLOBIN 11.2 g/dL (12.0-15.5); HGB HCT DIFFERENCE 1.3; LYMPHOCYTES % (AUTO) 11.8 % (13-45); MEAN CORPUSCULAR HEMOGLOBIN 32.2 pg (27.0-33.4); MEAN CORPUSCULAR HGB CONC 34.6 g/dL (32.0-36.0); MEAN CORPUSCULAR VOLUME 93 fl (80-97); MONOCYTES % (AUTO) 4.7 % (3-13); RED BLOOD COUNT 3.46 10^6/uL (3.72-5.28); RED CELL DISTRIBUTION WIDTH 14.2 % (11.5-14.0); SEGMENTED NEUTROPHILS % (AUTO) 83.3 % (42-78); WHITE BLOOD COUNT 3.9 10^3/uL (4.0-10.5)
[2017-05-06] MEDS: IPRATROPIUM/ALBUTEROL 0.5-2.5 MG/3 ML AMPUL NEB PRN (05:22)
[2017-05-06 05:41] LABS: ANION GAP 15 (5-19); BLOOD UREA NITROGEN 14 mg/dL (7-20); CALCIUM 9.3 mg/dL (8.4-10.2); CARBON DIOXIDE 25 mmol/L (22-30); CHLORIDE 101 mmol/L (98-107); CREATININE RESULT 0.92 mg/dL (0.52-1.25); GLUCOSE 192 mg/dL (75-110); MAGNESIUM 1.3 mg/dL (1.6-2.3); PHOSPHORUS 3.6 mg/dL (2.5-4.5); POTASSIUM 3.6 mmol/L (3.6-5.0)
[2017-05-06] MEDS: IPRATROPIUM/ALBUTEROL 0.5-2.5 MG/3 ML AMPUL NEB SCH ×3 (08:01→20:15)
[2017-05-06] MEDS: MAGNESIUM SULFATE/D5W 1 GM/100 ML RTUPB IV SCH ×3 (09:42→13:31)
[2017-05-06] MEDS: TIOTROPIUM BROMIDE DPI 5 CAP/KIT (18 MCG/CAP) IH SCH (09:46)
[2017-05-06] MEDS: ASPIRIN 81 MG TABLET, CHEWABLE PO SCH (09:48)
[2017-05-06] MEDS: FAMOTIDINE 20 MG TABLET PO SCH ×2 (09:48→21:52)
[2017-05-06] MEDS: LEVOTHYROXINE SODIUM 0.05 MG TABLET PO SCH (09:49)
[2017-05-06] MEDS: FUROSEMIDE 40 MG TABLET PO SCH (09:50)
[2017-05-06] MEDS: PREDNISONE 20 MG TABLET PO SCH ×2 (09:51→17:50)
[2017-05-06] MEDS: ENOXAPARIN SODIUM INJ 40 MG/0.4 ML DISP.SYRIN SUBCUT SCH (09:52)
[2017-05-06] MEDS: LANSOPRAZOLE 15 MG TAB.RAP.DR PO SCH (09:52)
[2017-05-06] MEDS: FLUTICASONE/SALMETEROL DISKUS 500-50 MCG/DOSE IH SCH ×2 (10:07→21:53)
[2017-05-06] MEDS: METOPROLOL TARTRATE 25 MG TABLET PO SCH ×2 (13:31→21:50)
[2017-05-06] MEDS ORDERED: (PENDING PHARMACY ID) (Levalbuterol Tartrate [Xopenex Hfa] 2 PUFF) IH PRN (14:01)
--- NOTE | 2017-05-06 17:40 | PDOC PROGRESS REPORT ---
Subjective Progress Note for:: 05/06/17 Subjective:: She is seen earlier today on morning rounds. Patient reports she has had at least 5 stools today. Patient has some difficulty with shortness of breath Patient complains of abdominal pain and diarrhea. Patient denies chest pain, shortness of breath,vomiting, fevers, chills, constipation, headache, new onset weakness. Physical Exam Vital Signs: Temp Pulse Resp BP Pulse Ox 98.4 F 92 16 104/70 97 05/06/17 03:30 05/06/17 05:22 05/06/17 05:22 05/06/17 03:30 05/06/17 05:35 Intake & Output 05/05/17 05/06/17 05/07/17 06:59 06:59 06:59 Intake Total 500 Output Total 600 Balance -100 Exam: General: Awake alert and oriented x2, no acute respiratory distress HEENT: AT/NC, PERRL, EOMI, oropharynx is moist, pink, no scleral icterus, no conjunctival injection Neck: No JVD, trachea midline Chest: bilateral end expiratory wheezing, prolonged expiratory phase, bilateral rhonchi CV: Regular rate and rhythm, normal S1 and S2, no murmur, rub, or gallop Abdomen: Soft, mildly tender to palpation diffusely, mildly distended, hyperactive bowel sounds; no rebound, rigidity, or guarding Extremities: No cyanosis, clubbing or edema Neuro: Cranial nerves II through XII are grossly intact without focal deficits; awake alert and oriented x2 Psych: normal mood and affect Results Laboratory Results: 05/06/17 04:23 05/06/17 04:23 05/06/17 05/06/17 04:23 04:23 WBC 3.9 L RBC 3.46 L Hgb 11.2 L Hct 32.3 L MCV 93 MCH 32.2 MCHC 34.6 RDW 14.2 H Plt Count 255 Seg Neutrophils % 83.3 H Lymphocytes % 11.8 L Monocytes % 4.7 Eosinophils % 0.1 Basophils % 0.1 Absolute Neutrophils 3.2 Absolute Lymphocytes 0.5 Absolute Monocytes 0.2 Absolute Eosinophils 0.0 Absolute Basophils 0.0 Sodium 141.0 Potassium 3.6 Chloride 101 Carbon Dioxide 25 Anion Gap 15 BUN 14 Creatinine 0.92 Est GFR ( Amer) > 60 Est GFR (Non-Af Amer) > 60 Glucose 192 H Calcium 9.3 Phosphorus 3.6 Magnesium 1.3 L Impressions: Chest X-Ray 05/03/17 18:29 IMPRESSION: 1. Question right hilar mass. 2. Possible limited right lower lobe pneumonia. Chest/Abdomen CTA 05/04/17 00:00 IMPRESSION: 1. No pulmonary emboli. 2. Persistent right perihilar and left lower lobe airspace disease most likely scarring. Assessment & Plan - Diagnosis (1) Sepsis Qualifiers: Sepsis type: sepsis due to unspecified organism Qualified Code(s): A41.9 - Sepsis, unspecified organism Is this a current diagnosis for this admission?: Yes Plan: Severe sepsis with hypotension which was responsive to fluids present on admission. Selected Entries 05/03/17 05/03/17 05/03/17 18:01 18:03 18:05 Heart Rate ( 97 Monitors) Respiratory 21 H Rate Blood Pressure 75/62 L 81/57 L Patient found to have C. difficile colitis. (2) C. difficile colitis Is this a current diagnosis for this admission?: Yes Plan: Due to her voluminous stools, patient continues to require IV fluids today to maintain her blood pressure Systolic greater than 90 and map greater than 65. Patient on IV Flagyl as well as oral vancomycin for her sepsis with C. difficile colitis (3) COPD exacerbation Is this a current diagnosis for this admission?: Yes Plan: Patient with COPD exacerbation. Nebulized treatments as needed. Increase prednisone. Patient reports taking 2 tabs of this at baseline. (4) Hypokalemia Is this a current diagnosis for this admission?: Yes Plan: Replete and recheck. Recheck magnesium (5) Acute hypoxemic respiratory failure Is this a current diagnosis for this admission?: Yes Plan: Continue oxygen Patient reports chronic hypoxemic respiratory failure requiring oxygen at night. (6) Anemia Qualifiers: Anemia type: unspecified type Qualified Code(s): D64.9 - Anemia, unspecified Is this a current diagnosis for this admission?: Yes (7) Chronic back pain Qualifiers: Back pain location: low back pain Back pain laterality: unspecified Is this a current diagnosis for this admission?: Yes Plan: Patient on Percocet as needed (8) Hypertension Qualifiers: Hypertension type: essential hypertension Qualified Code(s): I10 - Essential (primary) hypertension Is this a current diagnosis for this admission?: Yes Plan: Patient currently mildly hypotensive, continue use of IV fluids. Have held her antihypertensives with the exception of metoprolol. (9) Hypothyroid Qualifiers: Hypothyroidism type: unspecified Qualified Code(s): E03.9 - Hypothyroidism , unspecified Is this a current diagnosis for this admission?: Yes Plan: Continue current dose 05/03/17 17:50 TSH 2.20 (10) Obesity with serious comorbidity Qualifiers: Obesity type: due to excess calories Obesity classification: adult class 1 (BMI 30 ? 34.9) Body mass index: BMI 31.0-31.9 Qualified Code(s): E66.09 - Other obesity due to excess calories; Z68.31 - Body mass index (BMI) 31.0-31.9, adult; Z68.31 - Body mass index (BMI) 31.0-31.9, adult Is this a current diagnosis for this admission?: Yes (11) Hypomagnesemia Is this a current diagnosis for this admission?: Yes Plan: Replete and monitor for arrhythmia - Time Time Spent with patient: 25-34 minutes Medications reviewed and adjusted accordingly: Yes
[2017-05-07] MEDS: VANCOMYCIN HCL INJ 500 MG VIAL PO SCH ×4 (02:58→21:44)
[2017-05-07] MEDS: METRONIDAZOLE 500 MG/NS RTU 100 ML IV SCH ×4 (02:59→21:44)
[2017-05-07] MEDS: IPRATROPIUM/ALBUTEROL 0.5-2.5 MG/3 ML AMPUL NEB SCH ×3 (08:16→20:23)
[2017-05-07 08:43] LABS: ABSOLUTE LYMPHOCYTES (AUTO) 0.6 10^3/uL (0.5-4.7); ABSOLUTE MONOCYTES (AUTO) 0.5 10^3/uL (0.1-1.4); ABSOLUTE NEUT (AUTO) 6.3 10^3/uL (1.7-8.2); BASOPHILS % (AUTO) 0.4 % (0-2); HEMATOCRIT 31.1 % (36.0-47.0); HEMOGLOBIN 10.6 g/dL (12.0-15.5); HGB HCT DIFFERENCE 0.7; LYMPHOCYTES % (AUTO) 7.7 % (13-45); MEAN CORPUSCULAR HGB CONC 34.2 g/dL (32.0-36.0); MEAN CORPUSCULAR VOLUME 94 fl (80-97); MONOCYTES % (AUTO) 6.2 % (3-13); RED BLOOD COUNT 3.32 10^6/uL (3.72-5.28); RED CELL DISTRIBUTION WIDTH 14.1 % (11.5-14.0); SEGMENTED NEUTROPHILS % (AUTO) 85.7 % (42-78); WHITE BLOOD COUNT 7.3 10^3/uL (4.0-10.5)
[2017-05-07 08:55] LABS: ANION GAP 11 (5-19); BLOOD UREA NITROGEN 22 mg/dL (7-20); CALCIUM 9.3 mg/dL (8.4-10.2); CARBON DIOXIDE 32 mmol/L (22-30); CHLORIDE 101 mmol/L (98-107); CREATININE RESULT 0.94 mg/dL (0.52-1.25); GLUCOSE 141 mg/dL (75-110); MAGNESIUM 2.1 mg/dL (1.6-2.3); POTASSIUM 3.6 mmol/L (3.6-5.0); SODIUM 144.1 mmol/L (137-145)
[2017-05-07] MEDS: FUROSEMIDE 40 MG TABLET PO SCH ×2 (09:39→17:19)
[2017-05-07] MEDS: LEVOTHYROXINE SODIUM 0.05 MG TABLET PO SCH (09:40)
[2017-05-07] MEDS: PREDNISONE 20 MG TABLET PO SCH ×2 (09:40→21:44)
[2017-05-07] MEDS: LANSOPRAZOLE 15 MG TAB.RAP.DR PO SCH (09:40)
[2017-05-07] MEDS: ASPIRIN 81 MG TABLET, CHEWABLE PO SCH (09:41)
[2017-05-07] MEDS: TIOTROPIUM BROMIDE DPI 5 CAP/KIT (18 MCG/CAP) IH SCH (09:41)
[2017-05-07] MEDS: METOPROLOL TARTRATE 25 MG TABLET PO SCH ×2 (09:41→21:44)
[2017-05-07] MEDS: FAMOTIDINE 20 MG TABLET PO SCH ×2 (09:41→21:46)
[2017-05-07] MEDS: ENOXAPARIN SODIUM INJ 40 MG/0.4 ML DISP.SYRIN SUBCUT SCH (09:42)
[2017-05-07] MEDS: FLUTICASONE/SALMETEROL DISKUS 500-50 MCG/DOSE IH SCH ×2 (09:42→22:00)
--- NOTE | 2017-05-07 13:37 | RADIOLOGY REPORT (SQ) ---
EXAM DESCRIPTION: CHEST PA/LAT COMPLETED DATE/TIME: 05/07/2017 1:25 pm REASON FOR STUDY: chf COMPARISON: 03/22/2017 and 09/05/2016 EXAM PARAMETERS: NUMBER OF VIEWS: two views TECHNIQUE: Digital Frontal and Lateral radiographic views of the chest acquired. RADIATION DOSE: NA LIMITATIONS: none FINDINGS: LUNGS AND PLEURA: No opacities, masses or pneumothorax. No pleural effusion. MEDIASTINUM AND HILAR STRUCTURES: Stable in size and contour HEART AND VASCULAR STRUCTURES: Heart normal size. No evidence for failure. BONES: No acute findings. HARDWARE: None in the chest. OTHER: No other significant finding. IMPRESSION: NO ACUTE CARDIOPULMONARY PROCESS. NO SIGNIFICANT CHANGE FROM PRIOR STUDY. TECHNICAL DOCUMENTATION: JOB ID: [id number] [employer]- All Rights Reserved
[2017-05-07] MEDS ORDERED: POTASSIUM CHLORIDE 10 MEQ TABLET.SA PO ONE (14:00)
[2017-05-07] MEDS ORDERED: PREDNISONE 20 MG TABLET PO ONE (14:00)
--- NOTE | 2017-05-07 17:38 | PDOC PROGRESS REPORT ---
Subjective Progress Note for:: 05/07/17 Subjective:: She is seen earlier today on morning rounds. Patient reports her stools have tapered off Patient reports her shortness of breath is improved Patient denies chest pain, shortness of breath,vomiting, fevers, chills, constipation, headache, new onset weakness. Nursing reports unusual patient behavior Physical Exam Vital Signs: Temp Pulse Resp BP Pulse Ox 98.3 F 91 16 113/65 96 05/06/17 23:42 05/07/17 07:00 05/06/17 23:42 05/06/17 23:42 05/06/17 23:42 Intake & Output 05/06/17 05/07/17 05/08/17 06:59 06:59 06:59 Intake Total 500 1080 Output Total 600 300 Balance -100 780 Exam: General: Awake alert and oriented x3, no acute respiratory distress HEENT: AT/NC, PERRL, EOMI, oropharynx is moist, pink, no scleral icterus, no conjunctival injection Neck: No JVD, trachea midline Chest: CTAB CV: Regular rate and rhythm, normal S1 and S2, no murmur, rub, or gallop Abdomen: Soft, mildly tender to palpation diffusely, mildly distended, hyperactive bowel sounds; no rebound, rigidity, or guarding Extremities: No cyanosis, clubbing or edema Neuro: Cranial nerves II through XII are grossly intact without focal deficits; awake alert and oriented x3 Psych: normal mood and affect Results Laboratory Results: 05/06/17 04:23 05/06/17 04:23 Impressions: Chest X-Ray 05/03/17 18:29 IMPRESSION: 1. Question right hilar mass. 2. Possible limited right lower lobe pneumonia. Chest/Abdomen CTA 05/04/17 00:00 IMPRESSION: 1. No pulmonary emboli. 2. Persistent right perihilar and left lower lobe airspace disease most likely scarring. Assessment & Plan - Diagnosis (1) Sepsis Qualifiers: Sepsis type: sepsis due to unspecified organism Qualified Code(s): A41.9 - Sepsis, unspecified organism Is this a current diagnosis for this admission?: Yes Plan: Severe sepsis with hypotension which was responsive to fluids present on admission. Selected Entries 05/03/17 05/03/17 05/03/17 18:01 18:03 18:05 Heart Rate ( 97 Monitors) Respiratory 21 H Rate Blood Pressure 75/62 L 81/57 L Patient found to have C. difficile colitis. (2) C. difficile colitis Is this a current diagnosis for this admission?: Yes Plan: Due to her voluminous stools, patient continues to require IV fluids today to maintain her blood pressure Systolic greater than 90 and map greater than 65. Patient is currently on day 2 of 14 for her treatment with Flagyl and p.o. Vancocin. (3) COPD exacerbation Is this a current diagnosis for this admission?: Yes Plan: Patient with COPD exacerbation. Nebulized treatments as needed. Attempt to decrease prednisone. Concerned high dose is altering patient's mentation. (4) Hypokalemia Is this a current diagnosis for this admission?: Yes (5) Acute hypoxemic respiratory failure Is this a current diagnosis for this admission?: Yes (6) Anemia Qualifiers: Anemia type: unspecified type Qualified Code(s): D64.9 - Anemia, unspecified Is this a current diagnosis for this admission?: Yes (7) Chronic back pain Qualifiers: Back pain location: low back pain Back pain laterality: unspecified Is this a current diagnosis for this admission?: Yes (8) Hypertension Qualifiers: Hypertension type: essential hypertension Qualified Code(s): I10 - Essential (primary) hypertension Is this a current diagnosis for this admission?: Yes (9) Hypothyroid Qualifiers: Hypothyroidism type: unspecified Qualified Code(s): E03.9 - Hypothyroidism , unspecified Is this a current diagnosis for this admission?: Yes (10) Obesity with serious comorbidity Qualifiers: Obesity type: due to excess calories Obesity classification: adult class 1 (BMI 30 ? 34.9) Body mass index: BMI 31.0-31.9 Qualified Code(s): E66.09 - Other obesity due to excess calories; Z68.31 - Body mass index (BMI) 31.0-31.9, adult; Z68.31 - Body mass index (BMI) 31.0-31.9, adult Is this a current diagnosis for this admission?: Yes (11) Hypomagnesemia Is this a current diagnosis for this admission?: Yes - Time Time Spent with patient: 15-24 minutes Medications reviewed and adjusted accordingly: Yes Anticipated discharge: Home Within: within 24 hours, within 48 hours
[2017-05-07] MEDS ORDERED: FLUTICASONE/SALMETEROL DISKUS 500-50 MCG/DOSE IH ONE (22:17)
[2017-05-08] MEDS: METRONIDAZOLE 500 MG/NS RTU 100 ML IV SCH ×2 (02:38→08:18)
[2017-05-08] MEDS: VANCOMYCIN HCL INJ 500 MG VIAL PO SCH ×2 (02:38→08:18)
[2017-05-08] MEDS: IPRATROPIUM/ALBUTEROL 0.5-2.5 MG/3 ML AMPUL NEB SCH (08:26)
[2017-05-08] MEDS: FLUTICASONE/SALMETEROL DISKUS 500-50 MCG/DOSE IH SCH (10:00)
[2017-05-08] MEDS: PREDNISONE 20 MG TABLET PO SCH (10:02)
[2017-05-08] MEDS: LANSOPRAZOLE 15 MG TAB.RAP.DR PO SCH (10:02)
[2017-05-08] MEDS: FAMOTIDINE 20 MG TABLET PO SCH (10:03)
[2017-05-08] MEDS: ASPIRIN 81 MG TABLET, CHEWABLE PO SCH (10:03)
[2017-05-08] MEDS: METOPROLOL TARTRATE 25 MG TABLET PO SCH (10:03)
[2017-05-08] MEDS: LEVOTHYROXINE SODIUM 0.05 MG TABLET PO SCH (10:03)
[2017-05-08] MEDS: FUROSEMIDE 40 MG TABLET PO SCH (10:04)
[2017-05-08] MEDS: ENOXAPARIN SODIUM INJ 40 MG/0.4 ML DISP.SYRIN SUBCUT SCH (10:05)
[2017-05-08] MEDS: TIOTROPIUM BROMIDE DPI 5 CAP/KIT (18 MCG/CAP) IH SCH (10:11)
[2017-05-08 12:29] VITALS: BP 128/67
--- NOTE | 2017-05-08 18:39 | PDOC DISCHARGE SUMMARY ---
General - Admit/Disc Date/PCP Admission Date/Primary Care Provider: 05/05/17 15:36 Discharge Date: 05/08/17 - Discharge Diagnosis (1) Sepsis Is this a current diagnosis for this admission?: Yes (2) C. difficile colitis Is this a current diagnosis for this admission?: Yes (3) COPD exacerbation Is this a current diagnosis for this admission?: Yes (4) Hypokalemia Is this a current diagnosis for this admission?: Yes (5) Acute hypoxemic respiratory failure Is this a current diagnosis for this admission?: Yes (6) Anemia Is this a current diagnosis for this admission?: Yes (7) Chronic back pain Is this a current diagnosis for this admission?: Yes (8) Hypertension Is this a current diagnosis for this admission?: Yes (9) Hypothyroid Is this a current diagnosis for this admission?: Yes (10) Hypomagnesemia Is this a current diagnosis for this admission?: Yes (11) Obesity with serious comorbidity Is this a current diagnosis for this admission?: Yes - Additional Information Resuscitation Status: Full Code Discharge Diet: Cardiac, Diabetic Discharge Activity: Activity As Tolerated, Weigh Daily Home Medications: Acetaminophen [Pain Relief] 325 mg PO Q8HP PRN 01/31/17 Albuterol Sulfate [Albuterol Sulfate 2.5mg/3 mL] 1 vial NEB Q6HP PRN 01/31/17 Aspirin [Aspirin 81 mg Chewable Tablet] 81 mg PO DAILY 01/31/17 Fluticasone/Salmeterol [Advair 500-50 Diskus 28 Dose] 1 puff IH Q12 01/31/17 Furosemide [Lasix] 40 mg PO DAILY 01/31/17 Lansoprazole [Prevacid] 15 mg PO DAILY 01/31/17 Levalbuterol Tartrate [Xopenex Hfa] 2 puff IH Q6HP PRN 01/31/17 Levothyroxine Sodium [Synthroid 0.05 mg Tablet] 0.05 mg PO DAILY 01/31/17 Tiotropium Martin [Spiriva Handihaler 18 mcg/dose (30 Dose)] 1 cap IH DAILY 11/14 Famotidine [Pepcid 20 mg Tablet] 20 mg PO Q12 #14 tablet 02/02/17 Metoprolol Tartrate [Lopressor 25 mg Tablet] 12.5 mg PO Q12 #14 tablet 02/02/17 Albuterol Sulfate [Proair HFA Inhalation Aerosol 8.5 gm MDI] 2 puff IH Q4H PRN # 1 mdi 02/25/17 Ondansetron [Zofran Odt 4 mg Tablet] 1 tab PO Q4H PRN #15 tab.rapdis 05/02/17 Potassium Chloride 20 meq PO DAILY #10 capsule.er 05/02/17 Acidoph/L.bulg/Bif.b/S.thermop [Bacid Caplet] 1 tab PO BID #60 tablet 05/08/17 Furosemide [Lasix 40 mg Tablet] 40 mg PO BID #60 tablet 05/08/17 Metronidazole [Flagyl 500 mg Tablet] 500 mg PO TID #42 tablet 05/08/17 Prednisone [Deltasone 20 mg Tablet] 60 mg PO Q12 #48 tablet 05/08/17 Vancomycin HCl [Vancocin HCl] 125 mg PO Q6 #56 capsule 05/08/17 History of Present Illness History of Present Illness: Please see H+P for full HPI Hospital Course Hospital Course: Patient was admitted for sepsis with what initially was thought to be pneumonia , but developed diarrhea that evening. 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 C. difficile PCR was positive. Patient's antibiotics for pneumonia were stopped, and patient was started on IV Flagyl and oral Vancocin. Patient continued for several days to have large voluminous stools requiring IV fluids. Subsequently patient had some wheezing which improved with oral corticosteroids and nebulized breathing treatments. Patient did not have any productive sputum. Her Lasix was increased to twice daily during this time secondary to fluid retention from the steroids. Patient continued to improve and on day of discharge she had only 1 stool. Patient was educated on handwashing and appropriate cleaning of all soiled materials. Patient reported she was feeling well and discharged in stable condition. The remainder of her stay was unremarkable. Physical Exam Vital Signs: Temp Pulse Resp BP Pulse Ox 97.9 F 100 18 134/79 H 95 05/08/17 11:42 05/08/17 11:42 05/08/17 11:42 05/08/17 11:42 05/08/17 11:42 Intake & Output 05/07/17 05/08/17 05/09/17 06:59 06:59 06:59 Intake Total 1080 1468 Output Total 300 950 Balance 780 518 Weight 90.718 kg Exam: General: Awake alert and oriented x3, no acute respiratory distress HEENT: AT/NC, PERRL, EOMI, oropharynx is moist, pink, no scleral icterus, no conjunctival injection Neck: No JVD, trachea midline Chest: CTAB CV: Regular rate and rhythm, normal S1 and S2, no murmur, rub, or gallop Abdomen: Soft, mildly tender to palpation diffusely, mildly distended, hyperactive bowel sounds; no rebound, rigidity, or guarding Extremities: No cyanosis, clubbing; 1+edema Neuro: Cranial nerves II through XII are grossly intact without focal deficits; awake alert and oriented x3 Psych: normal mood and affect Results Laboratory Results: 05/07/17 08:13 05/07/17 08:13 Impressions: Chest/Abdomen CTA 05/04/17 00:00 IMPRESSION: 1. No pulmonary emboli. 2. Persistent right perihilar and left lower lobe airspace disease most likely scarring. Chest X-Ray 05/07/17 00:00 IMPRESSION: NO ACUTE CARDIOPULMONARY PROCESS. NO SIGNIFICANT CHANGE FROM PRIOR STUDY. Qualifiers PATEINT BEING DISCHARGED WITH ANY OF THE FOLLOWING DIAGNOSIS?: No Plan Time Spent: Less than 30 Minutes
== END 2017-05-08 12:31 | disposition home health service (06) | DRG 871 ==
LOC: ER 17:24 → EH 05-04 02:45 → UNDOADMOB 05-04 02:45 → EH 05-04 05:49 → 4S 05-04 05:57 → OBSVTOIN 05-05 15:36
PROVIDERS: ADMIT Family Medicine; ATTEND Family Medicine
PROC: 3E0F73Z Introduction of Anti-inflammatory into Respiratory Tract, Via Natural or Artificial Opening (ICD-10-PCS; principal; 2017-05-04)
PROC: 3E0234Z Introduction of Serum, Toxoid and Vaccine into Muscle, Percutaneous Approach (ICD-10-PCS; 2017-05-08)
DX: A41.9 Sepsis, unspecified organism (principal); J96.01 Acute respiratory failure with hypoxia; A04.72 Enterocolitis due to Clostridium difficile, not specified as recurrent; J44.1 Chronic obstructive pulmonary disease with (acute) exacerbation; R65.20 Severe sepsis without septic shock; E87.6 Hypokalemia; D64.9 Anemia, unspecified; G89.29 Other chronic pain; M54.9 Dorsalgia, unspecified; I10 Essential (primary) hypertension; E03.9 Hypothyroidism, unspecified; E83.42 Hypomagnesemia; F32.9 Major depressive disorder, single episode, unspecified; I25.10 Atherosclerotic heart disease of native coronary artery without angina pectoris; K21.9 Gastro-esophageal reflux disease without esophagitis; M19.90 Unspecified osteoarthritis, unspecified site; J98.4 Other disorders of lung; Z60.2 Problems related to living alone; I45.10 Unspecified right bundle-branch block; E66.09 Other obesity due to excess calories; Z68.32 Body mass index [BMI] 32.0-32.9, adult; I25.2 Old myocardial infarction; Z90.49 Acquired absence of other specified parts of digestive tract; Z23 Encounter for immunization; Z79.899 Other long term (current) drug therapy; Z85.118 Personal history of other malignant neoplasm of bronchus and lung; Z85.841 Personal history of malignant neoplasm of brain; Z99.81 Dependence on supplemental oxygen; Z92.3 Personal history of irradiation; Z86.73 Personal history of transient ischemic attack (TIA), and cerebral infarction without residual deficits; Z87.891 Personal history of nicotine dependence; Z88.3 Allergy status to other anti-infective agents; Z88.0 Allergy status to penicillin; Z80.1 Family history of malignant neoplasm of trachea, bronchus and lung
CPT/HCPCS: 36415; 71010; 71020; 71275; 80048; 80061; 80076; 82550; 82553; 83735; 84100; 84443; 84484; 85025; 87493; 90686; 93005; 93010; 94640; 94799; 96365; 96366; 99285; J1650; J3370; J3475; J3480; J3490; J7512; J7620

== ENCOUNTER 2017-05-25 21:21 | Emergency (ER) | payer MEDICARE, OTHER ==
--- NOTE | 2017-05-25 21:59 | ER Document Report ---
HPI - HPI Notes: Patient is a 71-year-old female who is currently being treated for C. difficile who presents to the ED complaining of a rash to her right anterior pardo that showed up today. Patient states that does not bother her at all she has not had any pain associated with it. The rash has not been worsening. Patient states that she does normally have edema in her legs bilaterally and is currently on a fluid pill. Patient is currently on vancomycin as well. Patient takes aspirin daily, but denies any other blood thinners. Patient states that otherwise she is feeling well without any other concerns. Denies any headache, fever, neck pain, URI, sore throat, chest pain, palpitations, syncope, cough, shortness of breath, wheeze, dyspnea, abdominal pain, nausea/ vomiting/diarrhea, urinary retention, dysuria, hematuria, numbness/tingling. - ROS Notes: REVIEW OF SYSTEMS: CONSTITUTIONAL : Denies fever, chills, or sweats. Denies recent illness. EENT: Denies eye, ear, throat, or mouth pain or symptoms. Denies nasal or sinus congestion or discharge. Denies throat, tongue, or mouth swelling or difficulty swallowing. CARDIOVASCULAR: Denies chest pain. Denies palpitations or racing or irregular heart beat. RESPIRATORY: Denies cough, cold, or chest congestion. Denies shortness of breath, difficulty breathing, or wheezing. GASTROINTESTINAL: Denies abdominal pain or distention. Denies nausea, vomiting , or diarrhea. Denies blood in vomitus, stools, or per rectum. Denies black, tarry stools. Denies constipation. GENITOURINARY: Denies difficulty urinating, painful urination, burning, frequency, blood in urine, or discharge. MUSCULOSKELETAL: Denies back or neck pain or stiffness. Denies joint pain or swelling. SKIN: Denies rash, lesions or sores. HEMATOLOGIC : Denies easy bruising or bleeding. NEUROLOGICAL: Denies confusion or altered mental status. Denies passing out or loss of consciousness. Denies dizziness or lightheadedness. Denies headache. Denies weakness or paralysis or loss of use of either side. Denies problems with gait or speech. Denies sensory loss, numbness, or tingling. ALL OTHER SYSTEMS REVIEWED AND NEGATIVE. Dictation was performed using [employer] voice recognition software - CARDIOVASCULAR Cardiovascular: DENIES: Chest pain - REPRODUCTIVE Reproductive: DENIES: : Past Medical History - Social History Smoking Status: Unknown if Ever Smoked Family History: Malignancy - Lung cancer - Past Medical History Cardiac Medical History: Reports: Hx Congestive Heart Failure, Hx Coronary Artery Disease, Hx Heart Attack, Hx Hypertension Denies: Hx DVT, Hx Hypercholesterolemia, Hx Pulmonary Embolism Pulmonary Medical History: Reports: Hx Asthma, Hx Bronchitis, Hx COPD - O2 dependent at night and as needed during the day, Hx Pneumonia Denies: Hx Sleep Apnea, Hx Tuberculosis Neurological Medical History: Denies: Hx Seizures Endocrine Medical History: Reports: Hx Hypothyroidism. Denies: Hx Diabetes Mellitus Type 1, Hx Diabetes Mellitus Type 2, Hx Hyperthyroidism Renal/ Medical History: Denies: Hx End Stage Renal Disease, Hx Kidney Stones, Hx Peritoneal Dialysis Malignancy Medical History: Reports: Hx Brain Cancer - Lung cancer with brain metastases, 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 GI Medical History: Reports: Hx Gastroesophageal Reflux Disease. Denies: Hx Cirrhosis, Hx Hepatitis, Hx Ulcer Musculoskeltal Medical History: Reports Hx Arthritis, Denies Hx Multiple Sclerosis, Reports Hx Musculoskeletal Deformity, Reports Hx Musculoskeletal Trauma Psychiatric Medical History: Reports: Hx Depression Denies: Hx Bipolar Disorder, Hx Schizophrenia Infectious Medical History: Denies: Hx Hepatitis Past Surgical History: Reports: Hx Cholecystectomy, Hx Orthopedic Surgery - Foot surgery - Immunizations Hx Diphtheria, Pertussis, Tetanus Vaccination: Yes Hx Pneumococcal Vaccination: 08/30/12 Vertical Provider Document - CONSTITUTIONAL Agree With Documented VS: Yes Notes: PHYSICAL EXAMINATION: GENERAL: Well-appearing, well-nourished and in no acute distress. A&Ox4 LUNGS: Breath sounds clear to auscultation bilaterally and equal. No wheezes rales or rhonchi. HEART: Regular rate and rhythm without murmurs, rubs, gallops. Musculoskeletal: LE's b/l: FROM to passive/active. Strength 5+/5. Sabine neg b/l. Extremities: 2+ pitting edema b/l LE's. Peripheral pulses 2+. Capillary refill less than 3 seconds. NEUROLOGICAL: Normal speech. Normal sensory, motor exams PSYCH: Normal mood, normal affect. SKIN: + petechiae noted to anterior rt pardo, no other petechiae noted. No erythema, streaks, abscess, or swelling otherwise. Non-tender and w/o induration. - INFECTION CONTROL TRAVEL OUTSIDE OF THE [place] IN LAST 30 DAYS: No - RESPIRATORY O2 Sat by Pulse Oximetry: 96 Course - Re-evaluation Re-evalutation: 05/25/17 23:17 Patient is an afebrile, well-hydrated, 71-year-old female who presents to the ED with an area of petechiae to her lower anterior pardo. Vitals are stable. PE is otherwise unremarkable. Patient is otherwise asymptomatic at this time with a an unremarkable CBC and coags. Patient to monitor for any acute changes in her symptoms and seek medical attention if so. Low suspicion for any systemic emergent condition at this time. Patient to continue home medications as directed. Recheck with your PCM in 3-5 days. Return to the ED with any worsening/concerning symptoms otherwise as reviewed in discharge. Patient is in agreement. - Vital Signs Vital signs: Temp Pulse Resp BP Pulse Ox 98.2 F 101 H 20 129/68 H 96 05/25/17 21:28 05/25/17 21:28 05/25/17 21:28 05/25/17 21:28 05/25/17 21:28 - Laboratory Result Diagrams: 05/25/17 22:17 Discharge - Discharge Clinical Impression: Petechiae Condition: Stable Disposition: HOME, SELF-CARE Additional Instructions: Continue home medications as directed Monitor symptoms for any acute changes and make sure that the petechiae rash is not spreading or becoming widespread Continue keeping her legs elevated and taking your fluid pill due to the swelling in your legs bilaterally Recheck with your PCM in 3-5 days Return to the ED with any worsening symptoms and/or development of fever, headache, chest pain, palpitations, syncope, shortness of breath, trouble breathing, abdominal pain, n/v/d, blood in stool/urine, worsening rash, or other worsening symptoms that are concerning to you. Referrals: MEGHANN STEELE JR, MD [Primary Care Provider] - Follow up in 3-5 days
[2017-05-25 22:32] LABS: HEMATOCRIT 33.4 % (36.0-47.0); HEMOGLOBIN 11.3 g/dL (12.0-15.5); HGB HCT DIFFERENCE 0.5; MEAN CORPUSCULAR VOLUME 97 fl (80-97); RED BLOOD COUNT 3.44 10^6/uL (3.72-5.28); RED CELL DISTRIBUTION WIDTH 15.4 % (11.5-14.0); WHITE BLOOD COUNT 8.6 10^3/uL (4.0-10.5)
[2017-05-25 22:51] LABS: BASOPHILS % (MANUAL) 0 % (0-2); EOSINOPHILS % (MANUAL) 0 % (0-6); LYMPHOCYTES % (MANUAL) 2 % (13-45); TOTAL CELLS COUNTED 100
[2017-05-25 22:52] LABS: ANISOCYTOSIS SLIGHT; OVALOCYTES SLIGHT; TOXIC GRANULATION SLIGHT
[2017-05-25 23:56] VITALS: BP 124/76
== END 2017-05-25 23:45 | disposition home or self-care (01) ==
LOC: ER 21:21
DX: R23.3 Spontaneous ecchymoses (principal); I50.9 Heart failure, unspecified; I25.10 Atherosclerotic heart disease of native coronary artery without angina pectoris; I10 Essential (primary) hypertension; J44.9 Chronic obstructive pulmonary disease, unspecified; E03.9 Hypothyroidism, unspecified; I25.2 Old myocardial infarction; Z99.81 Dependence on supplemental oxygen; Z90.49 Acquired absence of other specified parts of digestive tract; Z85.118 Personal history of other malignant neoplasm of bronchus and lung; Z85.841 Personal history of malignant neoplasm of brain; Z79.82 Long term (current) use of aspirin
CPT/HCPCS: 36415; 85025; 85610; 85730; 99283

== ENCOUNTER 2017-06-25 21:32 | Emergency (ER) | payer MEDICARE, OTHER ==
[2017-06-25 22:02] LABS: ABSOLUTE BASOPHILS # (AUTO) 0.1 10^3/uL (0.0-0.2); ABSOLUTE EOSINOPHILS # (AUTO) 0.1 10^3/uL (0.0-0.6); ABSOLUTE LYMPHOCYTES (AUTO) 1.5 10^3/uL (0.5-4.7); ABSOLUTE NEUT (AUTO) 5.3 10^3/uL (1.7-8.2); BASOPHILS % (AUTO) 0.7 % (0-2); EOSINOPHILS % (AUTO) 1.1 % (0-6); HEMATOCRIT 37.3 % (36.0-47.0); HEMOGLOBIN 13.1 g/dL (12.0-15.5); LYMPHOCYTES % (AUTO) 19.3 % (13-45); MEAN CORPUSCULAR HEMOGLOBIN 32.9 pg (27.0-33.4); MEAN CORPUSCULAR VOLUME 94 fl (80-97); MONOCYTES % (AUTO) 12.1 % (3-13); RED BLOOD COUNT 3.97 10^6/uL (3.72-5.28); RED CELL DISTRIBUTION WIDTH 14.8 % (11.5-14.0); SEGMENTED NEUTROPHILS % (AUTO) 66.8 % (42-78); WHITE BLOOD COUNT 7.9 10^3/uL (4.0-10.5)
[2017-06-25 22:25] LABS: ALANINE AMINOTRANSFERASE 36 U/L (9-52); ALKALINE PHOSPHATASE 79 U/L (38-126); ANION GAP 13 (5-19); ASPARTATE AMINO TRANSFERASE 23 U/L (14-36); BILIRUBIN,DIRECT 0.3 mg/dL (0.0-0.4); BILIRUBIN,TOTAL 0.7 mg/dL (0.2-1.3); BLOOD UREA NITROGEN 27 mg/dL (7-20); CALCIUM 9.3 mg/dL (8.4-10.2); CARBON DIOXIDE 35 mmol/L (22-30); CHLORIDE 93 mmol/L (98-107); CREATINE KINASE 32 U/L (30-135); GLUCOSE 108 mg/dL (75-110); SODIUM 140.6 mmol/L (137-145); TOTAL PROTEIN 6.4 g/dL (6.3-8.2)
--- NOTE | 2017-06-25 22:29 | RADIOLOGY REPORT (SQ) ---
EXAM DESCRIPTION: CHEST SINGLE VIEW COMPLETED DATE/TIME: 06/25/2017 10:11 pm REASON FOR STUDY: difficulty breathing COMPARISON: 05/07/2017. CT chest 05/04/2017. NUMBER OF VIEWS: One view. TECHNIQUE: Single frontal radiographic view of the chest acquired. LIMITATIONS: None. FINDINGS: LUNGS AND PLEURA: Chronic right perihilar density, nonprogressive. Lungs otherwise clear. MEDIASTINUM AND HILAR STRUCTURES: Stable contours. HEART AND VASCULAR STRUCTURES: Heart normal in size. Normal vasculature. BONES: No acute findings. HARDWARE: None in the chest. OTHER: No other significant finding. IMPRESSION: Stable chest, findings as above. This includes chronic density overlying the right hilu m, scarring. TECHNICAL DOCUMENTATION: JOB ID: [id number] [employer]- All Rights Reserved
[2017-06-25 22:31] LABS: POTASSIUM 2.7 mmol/L (3.6-5.0)
[2017-06-25] MEDS ORDERED: POTASSIUM CHLORIDE 10 MEQ TABLET.SA PO ONE (22:34)
[2017-06-25 22:38] LABS: CREATINE KINASE MB 0.81 ng/mL (<4.55)
[2017-06-25] MEDS: POTASSI CL 20 MEQ/50 ML RIDER 20 MEQ/50 ML RTUPB IV SCH (22:44)
[2017-06-25 22:53] LABS: TROPONIN I 0.062 ng/mL
[2017-06-25] MEDS ORDERED: ALBUTEROL SULFATE 0.083% NEB 2.5 MG/3 ML AMPUL NEB ONE (23:07)
[2017-06-25] MEDS ORDERED: ALPRAZOLAM 0.5 MG TABLET PO ONE (23:45)
--- NOTE | 2017-06-25 23:57 | ER Document Report ---
ED General - General Chief Complaint: Shortness Of Breath Stated Complaint: SHORTNESS OF BREATH Time Seen by Provider: 06/25/17 21:37 Mode of Arrival: Medic Information source: Patient Notes: 71-year-old female history of COPD presents with complaints of shortness of breath wheezing. Patient denies any fevers or chills denies any productivity to cough, notes she is normally on 2-2-1/2 L of nasal cannula at home. Patient denies any chest pain. TRAVEL OUTSIDE OF THE [place] IN LAST 30 DAYS: No - HPI Onset: Just prior to arrival Onset/Duration: Sudden Quality of pain: No pain Severity: Mild Pain Level: Denies Associated symptoms: Nonproductive cough, Shortness of breath Exacerbated by: Denies Relieved by: Denies Similar symptoms previously: No Recently seen / treated by doctor: No - Related Data Allergies/Adverse Reactions: amoxicillin [Amoxicillin] Adverse Reaction (Verified 05/04/17 06:14) visual hallucinations erythromycin base [Erythromycin Base] Adverse Reaction (Verified 05/04/17 06:14) visual hallucinations Potassium Clavulanate * [From Augmentin] Adverse Reaction (Verified 05/04/17 06: 14) visual hallucinations Past Medical History - Social History Smoking Status: Current Every Day Smoker Cigarette use (# per day): Yes Chew tobacco use (# tins/day): No Smoking Education Provided: No Family History: Malignancy - Lung cancer Patient has suicidal ideation: No Patient has homicidal ideation: No - Past Medical History Cardiac Medical History: Reports: Hx Congestive Heart Failure, Hx Coronary Artery Disease, Hx Heart Attack, Hx Hypertension Denies: Hx DVT, Hx Hypercholesterolemia, Hx Pulmonary Embolism Pulmonary Medical History: Reports: Hx Asthma, Hx Bronchitis, Hx COPD - O2 dependent at night and as needed during the day, Hx Pneumonia Denies: Hx Sleep Apnea, Hx Tuberculosis Neurological Medical History: Denies: Hx Seizures Endocrine Medical History: Reports: Hx Hypothyroidism. Denies: Hx Diabetes Mellitus Type 1, Hx Diabetes Mellitus Type 2, Hx Hyperthyroidism Renal/ Medical History: Denies: Hx End Stage Renal Disease, Hx Kidney Stones, Hx Peritoneal Dialysis Malignancy Medical History: Reports: Hx Brain Cancer - Lung cancer with brain metastases, 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 GI Medical History: Reports: Hx Gastroesophageal Reflux Disease. Denies: Hx Cirrhosis, Hx Hepatitis, Hx Ulcer Musculoskeltal Medical History: Reports Hx Arthritis, Denies Hx Multiple Sclerosis, Reports Hx Musculoskeletal Deformity, Reports Hx Musculoskeletal Trauma Psychiatric Medical History: Reports: Hx Depression Denies: Hx Bipolar Disorder, Hx Schizophrenia Infectious Medical History: Denies: Hx Hepatitis Past Surgical History: Reports: Hx Cholecystectomy, Hx Orthopedic Surgery - Foot surgery - Immunizations Hx Diphtheria, Pertussis, Tetanus Vaccination: Yes Hx Pneumococcal Vaccination: 08/30/12 Review of Systems - Review of Systems Notes: REVIEW OF SYSTEMS: CONSTITUTIONAL : Denies fever, chills, or sweats. Denies recent illness. EENT: Denies eye, ear, throat, or mouth pain or symptoms. Denies nasal or sinus congestion or discharge. Denies throat, tongue, or mouth swelling or difficulty swallowing. CARDIOVASCULAR: Denies chest pain. Denies palpitations or racing or irregular heart beat. Denies ankle edema. RESPIRATORY: admits ot cough sob GASTROINTESTINAL: Denies abdominal pain or distention. Denies nausea, vomiting , or diarrhea. Denies blood in vomitus, stools, or per rectum. Denies black, tarry stools. Denies constipation. GENITOURINARY: Denies difficulty urinating, painful urination, burning, frequency, blood in urine, or discharge. FEMALE GENITOURINARY: Denies vaginal bleeding, heavy or abnormal periods, irregular periods. Denies vaginal discharge or odor. MUSCULOSKELETAL: Denies back or neck pain or stiffness. Denies joint pain or swelling. SKIN: Denies rash, lesions or sores. HEMATOLOGIC : Denies easy bruising or bleeding. LYMPHATIC: Denies swollen, enlarged glands. NEUROLOGICAL: Denies confusion or altered mental status. Denies passing out or loss of consciousness. Denies dizziness or lightheadedness. Denies headache. Denies weakness or paralysis or loss of use of either side. Denies problems with gait or speech. Denies sensory loss, numbness, or tingling. Denies seizures. PSYCHIATRIC: Denies anxiety or stress. Denies depression, suicidal ideation, or homicidal ideation. ALL OTHER SYSTEMS REVIEWED AND NEGATIVE. PHYSICAL EXAMINATION: GENERAL: Well-appearing, well-nourished and in no acute distress. HEAD: Atraumatic, normocephalic. EYES: Pupils equal round and reactive to light, extraocular movements intact, conjunctiva are normal. ENT: Nares patent, oropharynx clear without exudates. Moist mucous membranes. NECK: Normal range of motion, supple without lymphadenopathy LUNGS: coarse wheezing inspiratory and expiratory HEART: Regular rate and rhythm without murmurs ABDOMEN: Soft, nontender, nondistended abdomen. No guarding, no rebound. No masses appreciated. Female : deferred Musculoskeletal: Normal range of motion, no pitting or edema. No cyanosis. NEUROLOGICAL: Cranial nerves grossly intact. Normal speech, normal gait. Normal sensory, motor exams PSYCH: Normal mood, normal affect. SKIN: Warm, Dry, normal turgor, no rashes or lesions noted. Dictation was performed using [employer] voice recognition software Physical Exam - Vital signs Vitals: Temp Pulse Resp BP Pulse Ox 99.1 F 113 H 24 H 114/71 100 06/25/17 21:55 06/25/17 21:55 06/25/17 21:55 06/25/17 21:55 06/25/17 21:55 Course - Re-evaluation Re-evalutation: 06/25/17 23:56 Patient was given 2 breathing treatments by EMS and no significant improvement of her breathing, she is satting 100% on 2 L nasal cannula chest x-ray shows no acute abnormality, she overall looks well, is in no distress, her potassium is noted to be 2.7, she does admit to being on blood pressure medication water pill and has not been taking any potassium medications for this. 06/25/17 23:57 Patient otherwise looks well is in no distress, I will discharge at this time After performing a Medical Screening Examination, I estimate there is LOW risk for ACUTE CORONARY SYNDROME, PULMONARY EMBOLI, RESPIRATORY FAILURE, SEPSIS OR MENINGITIS, thus I consider the discharge disposition reasonable. I have reevaluated this patient multiple times and no significant life threatening changes are noted. The patient and I have discussed the diagnosis and risks, and we agree with discharging home with close follow-up. We also discussed returning to the Emergency Department immediately if new or worsening symptoms occur. We have discussed the symptoms which are most concerning (e.g., changing or worsening pain, trouble swallowing or breathing, neck stiffness, fever) that necessitate immediate return. - Vital Signs Vital signs: Temp Pulse Resp BP Pulse Ox 99.1 F 113 H 24 H 114/71 100 06/25/17 21:55 06/25/17 21:55 06/25/17 21:55 06/25/17 21:55 06/25/17 21:55 - Laboratory Result Diagrams: 06/25/17 20:15 06/25/17 20:15 Laboratory results interpreted by me: 06/25/17 06/25/17 20:15 20:15 RDW 14.8 H Potassium 2.7 L* Chloride 93 L Carbon Dioxide 35 H BUN 27 H Creatinine 1.60 H Est GFR ( Amer) 38 L Est GFR (Non-Af Amer) 32 L - Diagnostic Test Radiology reviewed: Image reviewed, Reports reviewed Discharge - Discharge Clinical Impression: Hypokalemia, COPD exacerbation Condition: Stable Disposition: HOME, SELF-CARE Instructions: Chronic Obstructive Lung Disease ([facility]) Additional Instructions: You must recheck your potassium level in 3 days for reevaluation return immediately if there are any other concerns Prescriptions: Ipratropium/Albuterol Sulfate [Duoneb 3 ml Ampul] 3 ml NEB Q8 #14 vial.neb Potassium Bicarbonate/Cit AC [Potassium 25 Meq Tablet Eff] 25 meq PO BID #6 tablet.eff Referrals: MEGHANN STEELE JR, MD [Primary Care Provider] - Follow up in 3-5 days
[2017-06-26] MEDS: POTASSI CL 20 MEQ/50 ML RIDER 20 MEQ/50 ML RTUPB IV SCH ×2 (00:13→02:10)
[2017-06-26 00:53] LABS: BILIRUBIN,URINE NEGATIVE (NEGATIVE); GLUCOSE, URINE NEGATIVE (NEGATIVE); KETONES,URINE TRACE mg/dL (NEGATIVE); LEUKOCYTE ESTERASE,URINE SMALL (NEGATIVE); NITRITE,URINE NEGATIVE (NEGATIVE); PROTEIN,URINE 30 mg/dL (NEGATIVE); URINE SPECIFIC GRAVITY 1.017; UROBILINOGEN,URINE NEGATIVE mg/dL (<2.0)
[2017-06-26 00:54] LABS: APPEARANCE,URINE SLIGHTLY HAZY
[2017-06-26 04:35] LABS: ALANINE AMINOTRANSFERASE 35 U/L (9-52); ALBUMIN 3.5 g/dL (3.5-5.0); ALKALINE PHOSPHATASE 58 U/L (38-126); ANION GAP 11 (5-19); ASPARTATE AMINO TRANSFERASE 21 U/L (14-36); BILIRUBIN,DIRECT 0.4 mg/dL (0.0-0.4); BILIRUBIN,TOTAL 0.5 mg/dL (0.2-1.3); BLOOD UREA NITROGEN 25 mg/dL (7-20); CALCIUM 8.9 mg/dL (8.4-10.2); CARBON DIOXIDE 29 mmol/L (22-30); CHLORIDE 100 mmol/L (98-107); CREATININE RESULT 1.25 mg/dL (0.52-1.25); GLUCOSE 178 mg/dL (75-110); SODIUM 140.2 mmol/L (137-145); TOTAL PROTEIN 5.8 g/dL (6.3-8.2)
[2017-06-26] MEDS ORDERED: CEFTRIAXONE 1 GM/D5W RTU 1 GM/50 ML RTUPB IV ONE ×2 (05:00→19:00)
[2017-06-26 05:02] VITALS: BP 123/71
[2017-06-26 05:21] LABS: POTASSIUM 4.3 mmol/L (3.6-5.0)
--- NOTE | 2017-06-26 06:08 | EKG REPORT ---
SEVERITY:- ABNORMAL ECG - SINUS TACHYCARDIA PROBABLE LEFT ATRIAL ABNORMALITY RBBB AND LAFB : Confirmed by: Susan Mishra MD 26-Jun-2017 06:07:22
== END 2017-06-26 08:08 | disposition home or self-care (01) ==
LOC: ER 21:32
DX: J44.1 Chronic obstructive pulmonary disease with (acute) exacerbation (principal); E87.6 Hypokalemia; F17.210 Nicotine dependence, cigarettes, uncomplicated; I50.9 Heart failure, unspecified; I25.10 Atherosclerotic heart disease of native coronary artery without angina pectoris; I11.0 Hypertensive heart disease with heart failure; Z88.0 Allergy status to penicillin; I25.2 Old myocardial infarction; Z99.81 Dependence on supplemental oxygen
CPT/HCPCS: 93005; 94640; 99285; 96365; 96366; 96367; 36415; 82553; 82550; 83735; 85025; 80053; 81001; 84484; 83880; 71010; 93010; J3480 ×2; A9270 ×2; J0696

== ENCOUNTER 2017-07-11 15:05 | Emergency (ER) | payer MEDICARE, OTHER ==
--- NOTE | 2017-07-11 15:53 | RADIOLOGY REPORT (SQ) ---
EXAM DESCRIPTION: CHEST SINGLE VIEW COMPLETED DATE/TIME: 07/11/2017 3:39 pm REASON FOR STUDY: bed 7 db COMPARISON: 06/25/2017 EXAM PARAMETERS: NUMBER OF VIEWS: One view. TECHNIQUE: Single frontal radiographic view of the chest acquired. RADIATION DOSE: NA LIMITATIONS: None. FINDINGS: LUNGS AND PLEURA: No opacities, masses or pneumothorax. No pleural effusion. Flattened he midiaphragms. MEDIASTINUM AND HILAR STRUCTURES: Chronic changes over the right hilum which is stable. HEART AND VASCULAR STRUCTURES: Heart normal in size. Normal vasculature. BONES: No acute findings. HARDWARE: None in the chest. OTHER: No other significant finding. IMPRESSION: Stable chronic changes. No acute findings. TECHNICAL DOCUMENTATION: JOB ID: [id number] [employer]- All Rights Reserved
[2017-07-11 17:54] LABS: APPEARANCE,URINE CLEAR; BILIRUBIN,URINE NEGATIVE (NEGATIVE); GLUCOSE, URINE NEGATIVE (NEGATIVE); KETONES,URINE NEGATIVE (NEGATIVE); LEUKOCYTE ESTERASE,URINE TRACE (NEGATIVE); NITRITE,URINE NEGATIVE (NEGATIVE); PROTEIN,URINE NEGATIVE (NEGATIVE); URINE SPECIFIC GRAVITY 1.015; UROBILINOGEN,URINE NEGATIVE mg/dL (<2.0)
[2017-07-11 19:11] LABS: ABSOLUTE EOSINOPHILS # (AUTO) 0.2 10^3/uL (0.0-0.6); ABSOLUTE MONOCYTES (AUTO) 0.6 10^3/uL (0.1-1.4); ABSOLUTE NEUT (AUTO) 3.2 10^3/uL (1.7-8.2); BASOPHILS % (AUTO) 0.3 % (0-2); EOSINOPHILS % (AUTO) 3.8 % (0-6); HEMATOCRIT 31.3 % (36.0-47.0); HEMOGLOBIN 10.5 g/dL (12.0-15.5); HGB HCT DIFFERENCE 0.2; LYMPHOCYTES % (AUTO) 19.5 % (13-45); MEAN CORPUSCULAR HEMOGLOBIN 32.1 pg (27.0-33.4); MEAN CORPUSCULAR HGB CONC 33.6 g/dL (32.0-36.0); MEAN CORPUSCULAR VOLUME 96 fl (80-97); MONOCYTES % (AUTO) 12.7 % (3-13); RED BLOOD COUNT 3.28 10^6/uL (3.72-5.28); RED CELL DISTRIBUTION WIDTH 14.2 % (11.5-14.0); SEGMENTED NEUTROPHILS % (AUTO) 63.7 % (42-78)
[2017-07-11 19:24] LABS: ALANINE AMINOTRANSFERASE 25 U/L (9-52); ALBUMIN 3.1 g/dL (3.5-5.0); ALKALINE PHOSPHATASE 63 U/L (38-126); ANION GAP 6 (5-19); ASPARTATE AMINO TRANSFERASE 19 U/L (14-36); BLOOD UREA NITROGEN 13 mg/dL (7-20); CALCIUM 8.8 mg/dL (8.4-10.2); CARBON DIOXIDE 36 mmol/L (22-30); CHLORIDE 100 mmol/L (98-107); CREATINE KINASE 29 U/L (30-135); CREATININE RESULT 0.98 mg/dL (0.52-1.25); GLUCOSE 92 mg/dL (75-110); SODIUM 141.5 mmol/L (137-145); TOTAL PROTEIN 5.3 g/dL (6.3-8.2)
[2017-07-11 19:36] LABS: CREATINE KINASE MB 0.85 ng/mL (<4.55); TROPONIN I 0.014 ng/mL
[2017-07-11 19:42] LABS: BILIRUBIN,TOTAL < 0.1 mg/dL (0.2-1.3); POTASSIUM 3.5 mmol/L (3.6-5.0)
--- NOTE | 2017-07-11 19:59 | ER Document Report ---
ED General - General Chief Complaint: Shortness Of Breath Stated Complaint: SHORTNESS OF BREATH Time Seen by Provider: 07/11/17 19:12 TRAVEL OUTSIDE OF THE [place] IN LAST 30 DAYS: No - HPI Notes: Patient is a 71-year-old female with a history of COPD, lung cancer in remission , hypertension, chronic pain who presents the ED with 2 complaints. Patient is complaining of a re-exacerbation of her COPD with wheezing and shortness of breath. Patient is on oxygen via nasal cannula at home at 2-2-1/2 L. Patient states that her current symptoms resemble that of previous exacerbations. Pt does have occ dry non-productive cough. Patient has been using her home medications as directed. Patient also states that she has noticed blood when she wipes after having a bowel movement. Patient states that she does not look at her stool so she does not know if she has any blood in her stool or black tarry stool. Patient states that she has noticed this over the last couple days. Patient is otherwise eating and drinking without any difficulties. She is urinating normally. Patient states that she is scheduled for colonoscopy next week for routine check. Pt does have associated intermittent nausea. Denies any significant cardiac history. Denies any headache, fever, URI, sore throat, chest pain, palpitations, syncope, abdominal pain, vomiting/diarrhea, urinary retention, dysuria, hematuria, back pain, loss of control of bowel or bladder, numbness/tingling, muscle paralysis/weakness, or rash. Pt states that she did sleep wrong the other night causing some pain in her neck which she has had before. Pain does not radiate and is worsened when twisting. Pain described as a soreness. - Related Data Allergies/Adverse Reactions: amoxicillin [Amoxicillin] Adverse Reaction (Verified 05/04/17 06:14) visual hallucinations erythromycin base [Erythromycin Base] Adverse Reaction (Verified 05/04/17 06:14) visual hallucinations Potassium Clavulanate * [From Augmentin] Adverse Reaction (Verified 05/04/17 06: 14) visual hallucinations Past Medical History - Social History Smoking Status: Never Smoker Chew tobacco use (# tins/day): No Frequency of alcohol use: None Drug Abuse: None Family History: Malignancy - Lung cancer Patient has suicidal ideation: No Patient has homicidal ideation: No - Past Medical History Cardiac Medical History: Reports: Hx Congestive Heart Failure, Hx Coronary Artery Disease, Hx Heart Attack, Hx Hypertension Denies: Hx DVT, Hx Hypercholesterolemia, Hx Pulmonary Embolism Pulmonary Medical History: Reports: Hx Asthma, Hx Bronchitis, Hx COPD - O2 dependent at night and as needed during the day, Hx Pneumonia Denies: Hx Sleep Apnea, Hx Tuberculosis Neurological Medical History: Denies: Hx Seizures Endocrine Medical History: Reports: Hx Hypothyroidism. Denies: Hx Diabetes Mellitus Type 1, Hx Diabetes Mellitus Type 2, Hx Hyperthyroidism Renal/ Medical History: Denies: Hx End Stage Renal Disease, Hx Kidney Stones, Hx Peritoneal Dialysis Malignancy Medical History: Reports: Hx Brain Cancer - Lung cancer with brain metastases, 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 GI Medical History: Reports: Hx Gastroesophageal Reflux Disease. Denies: Hx Cirrhosis, Hx Hepatitis, Hx Ulcer Musculoskeltal Medical History: Reports Hx Arthritis, Denies Hx Multiple Sclerosis, Reports Hx Musculoskeletal Deformity, Reports Hx Musculoskeletal Trauma Psychiatric Medical History: Reports: Hx Depression Denies: Hx Bipolar Disorder, Hx Schizophrenia Infectious Medical History: Denies: Hx Hepatitis Past Surgical History: Reports: Hx Cholecystectomy, Hx Orthopedic Surgery - Foot surgery - Immunizations Hx Diphtheria, Pertussis, Tetanus Vaccination: Yes Hx Pneumococcal Vaccination: 08/30/12 Review of Systems - Review of Systems Notes: REVIEW OF SYSTEMS: CONSTITUTIONAL : Denies fever, chills, or sweats. Denies recent illness. EENT: Denies eye, ear, throat, or mouth pain or symptoms. Denies nasal or sinus congestion or discharge. Denies throat, tongue, or mouth swelling or difficulty swallowing. CARDIOVASCULAR: Denies chest pain. Denies palpitations or racing or irregular heart beat. RESPIRATORY: see hpi GASTROINTESTINAL: Denies abdominal pain or distention. Denies nausea, vomiting , or diarrhea. see hpi. GENITOURINARY: Denies difficulty urinating, painful urination, burning, frequency, blood in urine, or discharge. MUSCULOSKELETAL: see hpi SKIN: Denies rash, lesions or sores. NEUROLOGICAL: Denies confusion or altered mental status. Denies passing out or loss of consciousness. Denies dizziness or lightheadedness. Denies headache. Denies weakness or paralysis or loss of use of either side. Denies problems with gait or speech. Denies sensory loss, numbness, or tingling. Denies seizures. ALL OTHER SYSTEMS REVIEWED AND NEGATIVE. Dictation was performed using AVST recognition software Physical Exam - Vital signs Vitals: Resp Pulse Ox 16 99 07/11/17 15:19 07/11/17 15:19 Notes: PHYSICAL EXAMINATION: accompanied by female PCT GENERAL: Well-appearing, well-nourished and in no acute distress. A&Ox4 HEAD: Atraumatic, normocephalic. EYES: Pupils equal round and reactive to light, extraocular movements intact, sclera anicteric, conjunctiva are normal. ENT: Nares patent and without discharge. oropharynx clear without exudates. No tonsilar hypertrophy or erythema. Moist mucous membranes. NECK: Normal range of motion, supple without lymphadenopathy. No rigidity/ meningismus. + mild tenderness to the left c-paraspinal mm/trap LUNGS: wheezing throughout b/l HEART: Regular rate and rhythm without murmurs, rubs, gallops. ABDOMEN: Soft, nontender, nondistended abdomen. No guarding, no rebound. No masses appreciated. Normal bowel sounds present. No CVA tenderness bilaterally. Rectal: + small fissure noted to the skin 2cm above the anus with active scant bleeding. No hemorrhoids noted or tenderness to the rectum. No impaction noted. Guiac obtained. Musculoskeletal: Ext b/l: FROM to passive/active. Strength 5+/5. Sabine neg. no calf erythema, swelling. Extremities: 1+ pitting edema b/l. Peripheral pulses 2+. Capillary refill less than 3 seconds. NEUROLOGICAL: Cranial nerves grossly intact. Normal speech. Normal sensory, motor exams PSYCH: Normal mood, normal affect. SKIN: Warm, Dry, normal turgor, no rashes or lesions noted. Course - Re-evaluation Re-evalutation: 07/12/17 01:05 Patient is an afebrile, well-hydrated, 71-year-old female who presents the ED with a COPD exacerbation. Vitals are stable. PE is otherwise unremarkable. Lab work was relatively unremarkable for any acute pathology including a negative guaiac. Chest x-ray was unremarkable for any acute pathology. Cardiac enzymes 3/EKG 2 unremarkable for any acute pathology. Patient was given a DuoNeb treatment, magnesium, Decadron. Patient states that she feels much better than when she arrived and would like to go home. Patient's vitals have remained stable throughout her visit and her oxygen has been between 99 and 100% on 2 L via nasal cannula. Pt ambulated with O2 and her O2 sat remained above 92% on 2L NC and stayed primarily around 97%. Low suspicion for any ACS, PE, pneumothorax, pericarditis, dissection, respiratory compromise, severe dehydration, sepsis, meningitis, or other systemic emergent condition at this time. Patient is aware that her condition can change from initial presentation and she needs to monitor symptoms closely and seek medical attention for any acute changes. Continue home medications and inhalers as directed. Recommend conservative measures for symptoms. Recheck with your PCM in 3-5 days. Return to the ED with any worsening/concerning symptoms otherwise as reviewed in discharge. Patient is in agreement. - Vital Signs Vital signs: Temp Pulse Resp BP Pulse Ox 98.1 F 14 126/77 H 99 07/11/17 23:00 07/11/17 23:01 07/11/17 23:01 07/11/17 23:01 - Laboratory Result Diagrams: 07/11/17 16:20 07/11/17 16:20 Laboratory results interpreted by me: 07/11/17 07/11/17 07/11/17 16:20 16:20 17:30 RBC 3.28 L Hgb 10.5 L Hct 31.3 L RDW 14.2 H VBG HCO3 Potassium 3.5 L Carbon Dioxide 36 H Est GFR (Non-Af Amer) 56 L Total Bilirubin < 0.1 L Creatine Kinase 29 L Total Protein 5.3 L Albumin 3.1 L Ur Leukocyte Esterase TRACE H 07/11/17 20:40 RBC Hgb Hct RDW VBG HCO3 36.8 H Potassium Carbon Dioxide Est GFR (Non-Af Amer) Total Bilirubin Creatine Kinase Total Protein Albumin Ur Leukocyte Esterase Discharge - Discharge Clinical Impression: COPD exacerbation Condition: Stable Disposition: HOME, SELF-CARE Instructions: Chronic Obstructive Lung Disease ([facility]) Additional Instructions: Maintain adequate fluid intake Continue at-home medications and inhalers tylenol/ibuprofen as needed over the counter cold medication as needed for symptoms Humidified air may help for cough F/u: with your PCM in 3-5 days for a recheck Return to the ED with any fever, worsening pain, chest pain, palpitations, syncope, worsening RIVERA, neck pain/stiffness, shortness of breath, wheezing, drooling, trouble swallowing/breathing, abdominal pain, n/v/d, rash, or worsening/concerning symptoms otherwise. Forms: Elevated Blood Pressure Referrals: MERCEDES STRANGE DO [Primary Care Provider] - Follow up in 3-5 days
[2017-07-11] MEDS ORDERED: IPRATROPIUM/ALBUTEROL 0.5-2.5 MG/3 ML AMPUL NEB ONE (20:02)
[2017-07-11] MEDS: MAGNESIUM SULFATE/D5W 1 GM/100 ML RTUPB IV SCH ×2 (20:27→21:19)
[2017-07-11] MEDS ORDERED: OXYCODONE-ACETAMINOPHEN 5-325 MG TABLET PO ONE (20:42)
[2017-07-11 20:50] LABS: VENOUS BLOOD BASE EXCESS 10.3 mmol/L; VENOUS BLOOD HCO3 36.8 mmol/L (20-32); VENOUS BLOOD PCO2 59.7 mmHg (35-63); VENOUS BLOOD PH 7.41 (7.30-7.42)
[2017-07-11] MEDS ORDERED: NORMAL SALINE 1000 ML 1,000 ML IV ONE (22:25)
--- NOTE | 2017-07-11 23:10 | EKG REPORT ---
SEVERITY:- ABNORMAL ECG - SINUS RHYTHM RIGHT BUNDLE BRANCH BLOCK : Confirmed by: Mercedes Solomon 11-Jul-2017 23:10:01
--- NOTE | 2017-07-11 23:10 | EKG REPORT ---
SEVERITY:- ABNORMAL ECG - SINUS RHYTHM RIGHT BUNDLE BRANCH BLOCK : Confirmed by: Mercedes Solomon 11-Jul-2017 23:09:44
[2017-07-12 01:42] VITALS: BP 111/71
== END 2017-07-12 01:25 | disposition home or self-care (01) ==
LOC: ER 15:05
DX: J44.1 Chronic obstructive pulmonary disease with (acute) exacerbation (principal); I50.9 Heart failure, unspecified; I25.10 Atherosclerotic heart disease of native coronary artery without angina pectoris; I11.0 Hypertensive heart disease with heart failure; E03.9 Hypothyroidism, unspecified; I25.2 Old myocardial infarction; Z90.49 Acquired absence of other specified parts of digestive tract
CPT/HCPCS: 93005; 94640; 99285; 96361; 96365; 86900; 86901; 36415; 82553; 86850; 82550; 85025; 82272; 80053; 81001; 84484; 82803; 71010; 93010; A9270 ×2; J3475; J7030; J7620

== ENCOUNTER 2017-07-26 11:38 | Inpatient (IN) | payer MEDICARE, OTHER ==
[2017-07-26] MEDS ORDERED: IPRATROPIUM/ALBUTEROL 0.5-2.5 MG/3 ML AMPUL NEB ONE (11:53)
[2017-07-26] MEDS ORDERED: VANCOMYCIN HCL INJ 1000 MG VIAL IV ONE (11:53)
--- NOTE | 2017-07-26 11:59 | ER Document Report ---
ED Medical Screen (RME) - General Chief Complaint: Toe Injury Stated Complaint: RIGHT TOE PAIN Time Seen by Provider: 07/26/17 11:52 Notes: 71-year-old female here with multiple complaints: RIGHT BIG TOE PAIN Pain and redness to the right big toe. Denies any trauma or direct impact. Denies any prior history of cellulitis or gout arthritis. Pain is worse with movement. Pain is improved with minimizing movement. No drainage. WATERY DIARRHEA Ongoing for the past 7 days. She denies any abdominal pain. She has a history of C. difficile colitis. No fevers or chills. Denies recent antibiotic use or hospitalizations. SHORTNESS OF BREATH/CHEST TIGHTNESS Shortness of breath wheezing and chest tightness similar to her previous exacerbations. Has been coughing up blood past 1 day. EXAM Moderate diffuse and expiratory wheezes Mild decrease in aeration Right big toe with mild to moderate erythema and increased warmth compared to contralateral normal skin No drainage or fluctuance TRAVEL OUTSIDE OF THE [place] IN LAST 30 DAYS: No - Related Data Allergies/Adverse Reactions: amoxicillin [Amoxicillin] Adverse Reaction (Verified 07/26/17 11:39) visual hallucinations erythromycin base [Erythromycin Base] Adverse Reaction (Verified 07/26/17 11:39) visual hallucinations Potassium Clavulanate * [From Augmentin] Adverse Reaction (Verified 07/26/17 11: 39) visual hallucinations Past Medical History - Past Medical History Cardiac Medical History: Reports: Hx Congestive Heart Failure, Hx Coronary Artery Disease, Hx Heart Attack, Hx Hypertension Denies: Hx DVT, Hx Hypercholesterolemia, Hx Pulmonary Embolism Pulmonary Medical History: Reports: Hx Asthma, Hx Bronchitis, Hx COPD - O2 dependent at night and as needed during the day, Hx Pneumonia Denies: Hx Sleep Apnea, Hx Tuberculosis Neurological Medical History: Denies: Hx Seizures Endocrine Medical History: Reports: Hx Hypothyroidism. Denies: Hx Diabetes Mellitus Type 1, Hx Diabetes Mellitus Type 2, Hx Hyperthyroidism Renal/ Medical History: Denies: Hx End Stage Renal Disease, Hx Kidney Stones, Hx Peritoneal Dialysis Malignancy Medical History: Reports: Hx Brain Cancer - Lung cancer with brain metastases, 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 GI Medical History: Reports: Hx Gastroesophageal Reflux Disease. Denies: Hx Cirrhosis, Hx Hepatitis, Hx Ulcer Musculoskeltal Medical History: Reports Hx Arthritis, Denies Hx Multiple Sclerosis, Reports Hx Musculoskeletal Deformity, Reports Hx Musculoskeletal Trauma Psychiatric Medical History: Reports: Hx Depression Denies: Hx Bipolar Disorder, Hx Schizophrenia Infectious Medical History: Denies: Hx Hepatitis Past Surgical History: Reports: Hx Cholecystectomy, Hx Orthopedic Surgery - Foot surgery - Immunizations Hx Diphtheria, Pertussis, Tetanus Vaccination: Yes History of Influenza Vaccine for 04/2017 - 09/2017 Season: No Physical Exam - Vital signs Vitals: Temp Pulse BP Pulse Ox 98.6 F 104 H 104/70 93 07/26/17 11:46 07/26/17 11:46 07/26/17 11:46 07/26/17 11:46 Course - Vital Signs Vital signs: Temp Pulse Resp BP Pulse Ox 98.6 F 104 H 104/70 93 07/26/17 11:46 07/26/17 11:46 07/26/17 11:46 07/26/17 11:46
[2017-07-26 12:36] LABS: ABSOLUTE EOSINOPHILS # (AUTO) 0.1 10^3/uL (0.0-0.6); ABSOLUTE LYMPHOCYTES (AUTO) 0.9 10^3/uL (0.5-4.7); ABSOLUTE MONOCYTES (AUTO) 0.7 10^3/uL (0.1-1.4); ABSOLUTE NEUT (AUTO) 5.2 10^3/uL (1.7-8.2); BASOPHILS % (AUTO) 0.2 % (0-2); EOSINOPHILS % (AUTO) 1.4 % (0-6); HEMATOCRIT 35.5 % (36.0-47.0); HEMOGLOBIN 11.8 g/dL (12.0-15.5); LYMPHOCYTES % (AUTO) 12.5 % (13-45); MEAN CORPUSCULAR HEMOGLOBIN 31.5 pg (27.0-33.4); MEAN CORPUSCULAR HGB CONC 33.2 g/dL (32.0-36.0); MEAN CORPUSCULAR VOLUME 95 fl (80-97); MONOCYTES % (AUTO) 10.8 % (3-13); PLATELET COUNT 229 10^3/uL (150-450); RED BLOOD COUNT 3.74 10^6/uL (3.72-5.28); RED CELL DISTRIBUTION WIDTH 14.7 % (11.5-14.0); SEGMENTED NEUTROPHILS % (AUTO) 75.1 % (42-78); TOTAL CELLS COUNTED % (AUTO) 100 %; WHITE BLOOD COUNT 6.9 10^3/uL (4.0-10.5)
[2017-07-26 12:48] LABS: ALANINE AMINOTRANSFERASE 25 U/L (9-52); ALBUMIN 3.7 g/dL (3.5-5.0); ALKALINE PHOSPHATASE 63 U/L (38-126); ANION GAP 10 (5-19); ASPARTATE AMINO TRANSFERASE 23 U/L (14-36); BILIRUBIN,DIRECT 0.2 mg/dL (0.0-0.4); BILIRUBIN,TOTAL 0.3 mg/dL (0.2-1.3); BLOOD UREA NITROGEN 11 mg/dL (7-20); CALCIUM 9.5 mg/dL (8.4-10.2); CARBON DIOXIDE 33 mmol/L (22-30); CHLORIDE 102 mmol/L (98-107); GLUCOSE 92 mg/dL (75-110); LIPASE 65.5 U/L (23-300); POTASSIUM 3.2 mmol/L (3.6-5.0); SODIUM 145.4 mmol/L (137-145)
--- NOTE | 2017-07-26 13:09 | RADIOLOGY REPORT (SQ) ---
EXAM DESCRIPTION: ACUTE ABDOMEN SERIES COMPLETED DATE/TIME: 07/26/2017 12:59 pm REASON FOR STUDY: cough and c-diff; pneumonia? toxic megacolon? COMPARISON: Chest x-ray dated 12/08/2016 and abdominal x-ray dated 11/12/2016. NUMBER OF VIEWS: Three views. TECHNIQUE: Frontal chest, supine abdomen and upright/decubitus abdomen radiographic images acquired. LIMITATIONS: None. FINDINGS: CHEST: Stable chronic changes particularly in the right hilar region. No acute findings. FREE AIR: None. No abnormal gas collections. BOWEL GAS PATTERN: Nonobstructive pattern. No dilated loops or air fluid levels. CALCIFICATIONS: No suspicious calcifications. HARDWARE: Surgical clips. SOFT TISSUES: No gross mass or suggestion of organomegaly. BONES: No acute fracture. No worrisome bone lesions. OTHER: No other significant finding. IMPRESSION: NO RADIOGRAPHIC EVIDENCE FOR ACUTE ABDOMINAL DISEASE. TECHNICAL DOCUMENTATION: JOB ID: [id number] [email or web address]- All Rights Reserved
--- NOTE | 2017-07-26 13:13 | RADIOLOGY REPORT (SQ) ---
EXAM DESCRIPTION: TOE RIGHT COMPLETED DATE/TIME: 07/26/2017 12:59 pm REASON FOR STUDY: cellulitic R big toe; eval for osteomyelitis COMPARISON: None. NUMBER OF VIEWS: Three views. TECHNIQUE: AP, lateral, and oblique images acquired of the right first toe. LIMITATIONS: None. FINDINGS: MINERALIZATION: Normal. BONES: On the oblique view, there is irregularity seen along the dorsal medial aspect of the base of the 1st distal phalanx raising the possibility of osteomyelitis although this is not visualized on th e other views. JOINTS: No effusions. SOFT TISSUES: No soft tissue swelling. No foreign body. OTHER: No other significant finding. IMPRESSION: Findings raise the possibility of osteomyelitis involving the base of the 1st distal pha lanx. COMMENT: SITE OF TRAUMA/COMPLAINT MARKED/STAMP COMPLETED: YES. TECHNICAL DOCUMENTATION: JOB ID: [id number] [employer]- All Rights Reserved
--- NOTE | 2017-07-26 13:21 | ER Document Report ---
ED General - General Mode of Arrival: Medic Information source: Patient TRAVEL OUTSIDE OF THE [place] IN LAST 30 DAYS: No - HPI Patient complains to provider of: Right 1st toe pain, diarrhea, vomiting, and shortness of breath Onset: Other - see notes above Associated symptoms: Other - see notes above <EDUARDO WELSH - Last Filed: 07/26/17 18:54> <MICHAEL MOLINA - Last Filed: 07/26/17 18:56> - General Chief Complaint: Toe Injury Stated Complaint: RIGHT TOE PAIN Time Seen by Provider: 07/26/17 11:52 Notes: 71 year old female with history of C. diff, CHF, CAD, hypertension, and GA presents to the ED complaining of diarrhea that started 7 days ago and shortness of breath that started a few days ago. Patient additionally complains of having pressure-like chest pain that started last night and states that the pain has been constant since arriving to the ED. Pain is unchanged with sitting up right or laying flat. Patient also complains of right 1st toe pain which is exacerbated with movement and erythema that started yesterday. Patient denies any recent trauma to the toe. Patient explains that she has had erythematous lower extremities for over 1 year now, but the erythema to her right 1st toe started yesterday. Patient has a chronic cough, but reports having hemoptysis that started this morning. Patient is nauseous and has vomited twice today. Patient denies any blood in the stool or fever. Over the holiday, the patient has had collards with pig products. Patient reports feeling the same as she did when diagnosed with C. diff in the past. Patient denies any recent antibiotic use. (EDUARDO WELSH) - Related Data Allergies/Adverse Reactions: amoxicillin [Amoxicillin] Adverse Reaction (Verified 07/26/17 11:39) visual hallucinations erythromycin base [Erythromycin Base] Adverse Reaction (Verified 07/26/17 11:39) visual hallucinations Potassium Clavulanate * [From Augmentin] Adverse Reaction (Verified 07/26/17 11: 39) visual hallucinations Home Medications: Current Home Medications Albuterol Sulfate [Albuterol Sulfate 2.5mg/3 mL] 1 vial IH RTQ4HP PRN 07/26/17 [ History] Aspirin [Aspirin EC] 81 mg PO DAILY 07/26/17 [History] Fluticasone/Salmeterol [Advair 500-50 Diskus 28 Dose] 1 inh IH Q12 07/26/17 [ History] Furosemide [Lasix 40 mg Tablet] 40 mg PO QAM 07/26/17 [History] Levothyroxine Sodium [Synthroid 0.088 mg Tablet] 88 mcg PO Q6AM 07/26/17 [ History] Melatonin/Pyridoxine HCl (B6) [Melatonin 3 mg Tablet] 1 tab PO QHS 07/26/17 [ History] Metformin HCl [Metformin HCl ER] 500 mg PO ACBRKFST 07/26/17 [History] Pantoprazole Sodium [Protonix] 40 mg PO DAILY 07/26/17 [History] Sertraline HCl [Zoloft 50 mg Tablet] 50 mg PO DAILY 07/26/17 [History] Tiotropium [place] [Spiriva] 1 puff IH DAILY 07/26/17 [History] Tramadol HCl [Ultram 50 mg Tablet] 50 mg PO Q12HP PRN 07/26/17 [History] Past Medical History - General Information source: Patient - Social History Smoking Status: Former Smoker Chew tobacco use (# tins/day): No Frequency of alcohol use: None Drug Abuse: None Family History: Malignancy - Lung cancer Patient has suicidal ideation: No Patient has homicidal ideation: No - Past Medical History Cardiac Medical History: Reports: Hx Congestive Heart Failure, Hx Coronary Artery Disease, Hx Heart Attack, Hx Hypertension Denies: Hx DVT, Hx Hypercholesterolemia, Hx Pulmonary Embolism Pulmonary Medical History: Reports: Hx Asthma, Hx Bronchitis, Hx COPD - O2 dependent at night and as needed during the day, Hx Pneumonia Denies: Hx Sleep Apnea, Hx Tuberculosis Neurological Medical History: Denies: Hx Seizures Endocrine Medical History: Reports: Hx Hypothyroidism. Denies: Hx Diabetes Mellitus Type 1, Hx Diabetes Mellitus Type 2, Hx Hyperthyroidism Renal/ Medical History: Denies: Hx End Stage Renal Disease, Hx Kidney Stones, Hx Peritoneal Dialysis Malignancy Medical History: Reports: Hx Brain Cancer - Lung cancer with brain metastases, 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 GI Medical History: Reports: Hx Gastroesophageal Reflux Disease. Denies: Hx Cirrhosis, Hx Hepatitis, Hx Ulcer Musculoskeltal Medical History: Reports Hx Arthritis, Denies Hx Multiple Sclerosis, Reports Hx Musculoskeletal Deformity, Reports Hx Musculoskeletal Trauma Psychiatric Medical History: Reports: Hx Depression Denies: Hx Bipolar Disorder, Hx Schizophrenia Infectious Medical History: Reports: Hx C-Diff. Denies: Hx Hepatitis Past Surgical History: Reports: Hx Cholecystectomy, Hx Orthopedic Surgery - Foot surgery - Immunizations Hx Diphtheria, Pertussis, Tetanus Vaccination: Yes Hx Pneumococcal Vaccination: 08/30/12 <EDUARDO WELSH - Last Filed: 07/26/17 18:54> Review of Systems - Review of Systems Constitutional: No symptoms reported. denies: Fever EENT: No symptoms reported Cardiovascular: See HPI, Chest pain Respiratory: See HPI, Hemoptysis, Short of breath Gastrointestinal: See HPI, Diarrhea, Nausea, Vomiting. denies: Rectal bleeding Genitourinary: No symptoms reported Female Genitourinary: No symptoms reported Musculoskeletal: See HPI, Other - right 1st toe pain and erythema Skin: See HPI, Change in color - right 1st toe erythema Hematologic/Lymphatic: No symptoms reported Neurological/Psychological: No symptoms reported -: Yes All other systems reviewed and negative <EDUARDO WELSH - Last Filed: 07/26/17 18:54> Physical Exam <EDUARDO WELSH - Last Filed: 07/26/17 18:54> <MICHAEL MOLINA - Last Filed: 07/26/17 18:56> - Vital signs Vitals: Temp Pulse BP Pulse Ox 98.6 F 104 H 104/70 93 07/26/17 11:46 07/26/17 11:46 07/26/17 11:46 07/26/17 11:46 - Notes Notes: GENERAL: Alert, interacts well. No acute distress. HEAD: Normocephalic, atraumatic. EYES: Pupils equal, round, and reactive to light. Extraocular movements intact. ENT: Oral mucosa moist, tongue midline. NECK: Full range of motion. Supple. Trachea midline. LUNGS: Expiratory wheezing and rhonchi, bilaterally. No rales. No respiratory distress. HEART: Regular rate and rhythm. No murmurs, gallops, or rubs. ABDOMEN: Soft, non-tender. Non-distended. Bowel sounds present in all 4 quadrants. EXTREMITIES: Moves all 4 extremities spontaneously. No edema, radial and dorsalis pedis pulses 2/4 bilaterally. No cyanosis. Mild erythema to the bilateral lower extremities from the ankles extending just before the knees. Right 1st MTP joint is erythematous and tender with light palpation. No bony deformity. Able to flex and extend right 1st toe. Left 1st toe is not erythematous. NEUROLOGICAL: Alert and oriented x3. Normal speech. PSYCH: Normal affect, normal mood. SKIN: Warm, dry, normal turgor. (EDUARDO WELSH) Course - Laboratory Result Diagrams: 07/26/17 12:10 07/26/17 12:10 <EDUARDO WELSH - Last Filed: 07/26/17 18:54> - Laboratory Result Diagrams: 07/26/17 12:10 07/26/17 12:10 <MICHAEL MOLINA - Last Filed: 07/26/17 18:56> - Re-evaluation Re-evalutation: 07/26/17 16:35 CBC shows chronic anemia, CMP shows somewhat low potassium at 3.2 otherwise grossly unremarkable, cardiac enzymes initially negative, inflammatory markers are both elevated ESR is 54 CRP is 35.8, x-ray of the right great toe shows changes consistent with osteomyelitis, patient was started on Rocephin and vancomycin for this. Acute abdominal series is unremarkable, CT of the chest was ordered due to the hemoptysis and this was negative for pulmonary embolism or acute pneumonia. EKG is nonischemic. Patient is currently chest pain-free, no evidence of acute GA at this time however patient will need chest pain rule out in addition to being admitted for IV antibiotics for osteomyelitis of the right great toe. Discussed case with Dr. Choi who agrees to admit the patient to her service on telemetry care unit. (MICHAEL MOLINA) - Vital Signs Vital signs: Temp Pulse Resp BP Pulse Ox 98.6 F 104 H 17 103/67 97 07/26/17 11:46 07/26/17 11:46 07/26/17 18:01 07/26/17 18:00 07/26/17 18:01 - Laboratory Laboratory results interpreted by me: 07/26/17 07/26/17 07/26/17 12:10 12:10 12:10 Hgb 11.8 L Hct 35.5 L RDW 14.7 H Lymphocytes % 12.5 L ESR 54 H Sodium 145.4 H Potassium 3.2 L Carbon Dioxide 33 H Est GFR (Non-Af Amer) 58 L C-Reactive Protein Total Protein 6.0 L 07/26/17 12:10 Hgb Hct RDW Lymphocytes % ESR Sodium Potassium Carbon Dioxide Est GFR (Non-Af Amer) C-Reactive Protein 35.8 H Total Protein - EKG Interpretation by Me Additional EKG results interpreted by me: 07/26/17 16:36 EKG shows sinus rhythm rate 98, right bundle branch block, no ST segment elevations or depressions, no abnormal T-wave inversions per my interpretation. (MICHAEL MOLINA) Discharge <EDUARDO WELSH - Last Filed: 07/26/17 18:54> - Discharge Admitting Provider: Hospitalist - parment Unit Admitted: Telemetry <MICHAEL MOLINA - Last Filed: 07/26/17 18:56> - Discharge Clinical Impression: Osteomyelitis of toe of right foot, Chest pain, rule out acute myocardial infarction Diabetes Qualifiers: Diabetes mellitus type: type 2 Diabetes mellitus complication status: with hyperglycemia Diabetes mellitus intermediate insulin use: with intermediate use Qualified Code(s): E11.65 - Type 2 diabetes mellitus with hyperglycemia Condition: Fair Disposition: ADMITTED INPATIENT Scribe Attestation: 07/26/17 18:56 I personally performed the services described in the documentation, reviewed and edited the documentation which was dictated to the scribe in my presence, and it accurately records my words and actions. (MICHAEL MOLINA) Scribe Documentation - Scribe Written by Augustin:: Augustin Linares, 07/26/2017 1429 acting as scribe for :: Luis <EDUARDO WELSH - Last Filed: 07/26/17 18:54>
[2017-07-26] MEDS ORDERED: CEFTRIAXONE 1 GM/D5W RTU 1 GM/50 ML RTUPB IV ONE (13:32)
--- NOTE | 2017-07-26 14:59 | RADIOLOGY REPORT (SQ) ---
EXAM DESCRIPTION: CTA CHEST COMPLETED DATE/TIME: 07/26/2017 2:33 pm REASON FOR STUDY: hemoptysis COMPARISON: 05/04/2017. Radiographs from today. 09/06/[address] chest studies. TECHNIQUE: CT scan of the chest performed using helical scanning technique with dynamic intravenous contrast injection. Images reviewed with lung, soft tissue and bone windows. Reconstructed coronal and sagittal MPR images reviewed. Additional 3 dimensional post-processing performed to develop Maximal Intensity Projection images (HI P). All images stored on PACS. All CT scanners at this facility use dose modulation, iterative reconstruction, and/or weight based d osing when appropriate to reduce radiation dose to as low as reasonably achievable (ALARA). [facility]: Dose Right [facility]: CareDose [facility]: Dose Right [facility]: Teradose 4D [facility]: Boosted Boards CONTRAST TYPE AND DOSE: contrast/concentration: Isovue 370.00 mg/ml; Total Contrast Delivered: 75.0 ml; Total Saline Delivered: 85.3 ml Contrast bolus adequate for pulmonary arteries and aorta. RENAL FUNCTION: Creatinine 0.95 RADIATION DOSE: CT Rad equipment meets quality standard of care and radiation dose reduction techniq ues were employed. CTDIvol: 16.5 - 19.5 mGy. DLP: 727 mGy-cm. . LIMITATIONS: None. FINDINGS: LUNGS AND PLEURA: Chronic airspace disease, scar about the right hilum involving the right upper lobe, right middle lobe and right lower lobe. Nonprogressive appearance. Trace right pleural fluid. Lungs otherwise clear allowing for motion artifact. AORTA AND GREAT VESSELS: No aneurysm. Contrast bolus not optimized for the aorta. HEART: No pericardial effusion. Moderate coronary calcification. PULMONARY ARTERIES: No emboli visualized in the main pulmonary arteries or the segmental branches. HILAR AND MEDIASTINAL STRUCTURES: No identified masses or abnormal nodes. HARDWARE: None in the chest. UPPER ABDOMEN: Chronic pneumobilia. THYROID AND OTHER SOFT TISSUES: No masses. No adenopathy. BONES: No acute or significant finding. 3D MIPS: Confirm above findings. OTHER: No other significant finding. IMPRESSION: 1. No pulmonary embolus or aortic aneurysm. 2. Chronic right lung changes, grossly non progressive. COMMENT: Quality ID # [id number]: Final reports with documentation of one or more dose reduction techniques (e.g., Automated exposure control, adjustment of the mA and/or kV according to patient size, use of iterative reconstruction technique) TECHNICAL DOCUMENTATION: JOB ID: [id number] [employer] [facility] [employer]- All Rights Reserved
[2017-07-26 15:36] LABS: CREATINE KINASE MB 0.59 ng/mL (<4.55); TROPONIN I 0.013 ng/mL
[2017-07-26] MEDS ORDERED: POTASSI CL 20 MEQ/NS 1L 1,000 ML IV PRN (17:25)
[2017-07-26] MEDS ORDERED: ACETAMINOPHEN 325 MG TABLET PO PRN (17:25)
[2017-07-26] MEDS ORDERED: ONDANSETRON HCL INJ/PF 4 MG/2 ML SDV IV PRN (17:25)
[2017-07-26] MEDS ORDERED: DEXTROSE 40% GEL 15 GM TUBE PO PRN ×2 (17:42)
[2017-07-26] MEDS ORDERED: INSULIN LISPRO 100 UNIT/ML 3 ML VIAL SUBCUT PRN (17:42)
[2017-07-26] MEDS ORDERED: GLUCAGON,HUMAN RECOMB 1 MG INJ IM PRN (17:42)
[2017-07-26] MEDS ORDERED: DEXTROSE 50%-WATER 25 GM/50 ML DISP.SYRIN IV PRN ×2 (17:42)
[2017-07-26] MEDS ORDERED: TRAMADOL HCL 50 MG TABLET PO PRN (17:43)
[2017-07-26] MEDS ORDERED: VANCOMYCIN HCL 0 MG in DEXTROSE 5%-WATER 250 ML IV NR (17:45)
[2017-07-26] MEDS: IPRATROPIUM/ALBUTEROL 0.5-2.5 MG/3 ML AMPUL NEB PRN (20:44)
[2017-07-26] MEDS: ACETYLCYSTEINE 20% SOLN 800 MG/4 ML VIAL.NEB NEB SCH (20:44)
[2017-07-26] MEDS: DOCUSATE SODIUM 100 MG CAPSULE PO SCH (20:46)
[2017-07-26] MEDS ORDERED: (PENDING PHARMACY ID) (Melatonin/Pyridoxine Hcl (B6) [Melatonin 3 Mg Tablet] 1 TAB) PO SCH (22:00)
[2017-07-26] MEDS ORDERED: CLINDAMYCIN 900 MG/D5W RTU 50 ML IV SCH (22:00)
[2017-07-26] MEDS ORDERED: INFLUENZA ADLT QUAD (36MOS+) 2017-18 VAC 0.5 ML SYR IM PRN (22:51)
[2017-07-27] MEDS ORDERED: VANCOMYCIN HCL 750 MG in DEXTROSE 5%-WATER 250 ML IV SCH (06:00)
[2017-07-27] MEDS ORDERED: LEVOTHYROXINE SODIUM 0.088 MG TABLET PO SCH (06:00)
[2017-07-27] MEDS ORDERED: LANSOPRAZOLE 30 MG TAB.RAP.DR PO SCH (06:00)
[2017-07-27 06:41] LABS: ANION GAP 8 (5-19); BLOOD UREA NITROGEN 11 mg/dL (7-20); CARBON DIOXIDE 33 mmol/L (22-30); CHLORIDE 104 mmol/L (98-107); GLUCOSE 89 mg/dL (75-110); MAGNESIUM 1.4 mg/dL (1.6-2.3); POTASSIUM 3.3 mmol/L (3.6-5.0); URIC ACID 7.7 mg/dL (2.5-7.5)
[2017-07-27 06:57] LABS: FREE T3 2.98 pg/mL (2.77-5.27); FREE T4 (FREE THYROXINE) 0.8 ng/dL (0.78-2.19)
[2017-07-27 07:11] LABS: THYROID STIMULATING HORMONE 16.2 uIU/mL (0.47-4.68)
--- NOTE | 2017-07-27 08:00 | EKG REPORT ---
SEVERITY:- ABNORMAL ECG - SINUS RHYTHM RIGHT BUNDLE BRANCH BLOCK : Confirmed by: Susan Mishra MD 27-Jul-2017 07:59:21
[2017-07-27] MEDS: IPRATROPIUM/ALBUTEROL 0.5-2.5 MG/3 ML AMPUL NEB PRN (08:42)
[2017-07-27] MEDS: ACETYLCYSTEINE 20% SOLN 800 MG/4 ML VIAL.NEB NEB SCH (08:42)
[2017-07-27] MEDS ORDERED: DOXYCYCLINE HYCLATE 100 MG TABLET PO ONE ×2 (09:00→14:15)
[2017-07-27] MEDS ORDERED: POTASSIUM CHLORIDE 10 MEQ TABLET.SA PO ONE ×2 (09:00→12:14)
[2017-07-27] MEDS ORDERED: PREDNISONE 20 MG TABLET PO SCH (10:00)
[2017-07-27] MEDS ORDERED: SERTRALINE HCL 50 MG TABLET PO SCH (10:00)
[2017-07-27] MEDS ORDERED: ENOXAPARIN SODIUM INJ 40 MG/0.4 ML DISP.SYRIN SUBCUT SCH (10:00)
[2017-07-27] MEDS ORDERED: ASPIRIN 81 MG TABLET, ENT COATED PO SCH (10:00)
[2017-07-27] MEDS ORDERED: METRONIDAZOLE 500 MG TABLET PO SCH (14:00)
[2017-07-27 16:00] VITALS: BP 106/61
--- NOTE | 2017-07-27 16:17 | RADIOLOGY REPORT (SQ) ---
EXAM DESCRIPTION: MRI RT LOWER EXTREMITY COMBO COMPLETED DATE/TIME: 07/27/2017 3:21 pm REASON FOR STUDY: right foot osteo COMPARISON: None. TECHNIQUE: Multiplanar imaging of the right foot to include T1-weighted, postcontrast T1-weighted, a nd T2-weighted images. CONTRAST TYPE AND DOSE: 15 mL Prohance. RENAL FUNCTION: GFR > 60. LIMITATIONS: None. FINDINGS: BONE MARROW: No marrow signal alteration. Specifically no marrow replacement or marrow ed jamie. No evidence for osteomyelitis. No cortical break through. SOFT TISSUES: No soft tissue abscess or swelling. OTHER: No other significant finding. IMPRESSION: NO EVIDENCE FOR OSTEOMYELITIS. TECHNICAL DOCUMENTATION: JOB ID: [id number] [employer]- All Rights Reserved
[2017-07-27] MEDS: DOCUSATE SODIUM 100 MG CAPSULE PO SCH (16:44)
[2017-07-27] MEDS ORDERED: DOXYCYCLINE HYCLATE 100 MG TABLET PO SCH (22:00)
--- NOTE | 2017-07-28 16:36 | PDOC H&P ---
History of Present Illness Admission Date/PCP: 07/26/17 16:51 MEGHANN STEELE JR, MD Patient complains of: Pain and diarrhea History of Present Illness: TRENTON MCCOY is a 71 year old female with a history of COPD on home oxygen and diabetes in with a two-week history of right toe pain and redness. Patient denied any trauma to the foot. Patient denied any history of gout. Patient also complains of cough with shortness of breath but denies any fevers or chills. Patient denies any chest pain. Patient is also complaining of diarrhea. ED. X-ray of the right foot and noted what was concerning for possible osteo- patient was started on ceftriaxone and vancomycin hospitalist was consulted to evaluate patient for possible osteomyelitis of her right toe. Past Medical History Cardiac Medical History: Reports: Congestive Heart Failure, Coronary Artery Disease, Myocardial Infarction, Hypertension Denies: DVT, Hyperlipidema, Pulmonary Embolism Pulmonary Medical History: Reports: Asthma, Bronchitis, Chronic Obstructive Pulmonary Disease (COPD) - O2 dependent at night and as needed during the day, Pneumonia Denies: Sleep Apnea, Tuberculosis Neurological Medical History: Denies: Seizures Endocrine Medical History: Reports: Hypothyroidism Denies: Diabetes Mellitus Type 1, Diabetes Mellitus Type 2, Hyperthyroidism Renal/ Medical History: Denies: End Stage Renal Disease Malignancy Medical History: Reports: Brain Cancer - Lung cancer with brain metastases, 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 GI Medical History: Reports: Gastroesophageal Reflux Disease Denies: Cirrhosis, Hepatitis Musculoskeltal Medical History: Reports: Arthritis Psychiatric Medical History: Reports: Depression Denies: Bipolar Disorder Hematology: Reports: Anemia, Bleeding Tendencies Infectious Medical History: Reports: Clostridium Difficile Past Surgical History Past Surgical History: Reports: Cholecystectomy, Orthopedic Surgery - Foot surgery Social History Smoking Status: Former Smoker Frequency of Alcohol Use: None Hx Recreational Drug Use: No Drugs: None Hx Prescription Drug Abuse: No - Advance Directive Resuscitation Status: Full Code Family History Family History: Malignancy - Lung cancer Parental Family History Reviewed: No Children Family History Reviewed: No Sibling(s) Family History Reviewed.: No Medication/Allergy Home Medications: Albuterol Sulfate [Albuterol Sulfate 2.5mg/3 mL] 1 vial IH RTQ4HP PRN 07/26/17 Aspirin [Aspirin EC] 81 mg PO DAILY 07/26/17 Fluticasone/Salmeterol [Advair 500-50 Diskus 28 Dose] 1 inh IH Q12 07/26/17 Furosemide [Lasix 40 mg Tablet] 40 mg PO QAM 07/26/17 Levothyroxine Sodium [Synthroid 0.088 mg Tablet] 88 mcg PO Q6AM 07/26/17 Melatonin/Pyridoxine HCl (B6) [Melatonin 3 mg Tablet] 1 tab PO QHS 07/26/17 Metformin HCl [Metformin HCl ER] 500 mg PO ACBRKFST 07/26/17 Pantoprazole Sodium [Protonix] 40 mg PO DAILY 07/26/17 Sertraline HCl [Zoloft 50 mg Tablet] 50 mg PO DAILY 07/26/17 Tiotropium [place] [Spiriva] 1 puff IH DAILY 07/26/17 Tramadol HCl [Ultram 50 mg Tablet] 50 mg PO Q12HP PRN 07/26/17 Allopurinol [Zyloprim 100 mg Tablet] 100 mg PO DAILY 30 Days #30 tablet Ciprofloxacin HCl [Cipro 500 mg Tablet] 500 mg PO BID 30 Days #60 tablet Doxycycline Hyclate [Vibramycin 100 mg Tablet] 100 mg PO Q12 30 Days #60 tablet 07/27/17 Lactobacillus Acidophilus [Acidophilus Lactobacilli] 1 each PO DAILY #30 capsule 07/27/17 Methylprednisolone [Medrol Dosepack (4 mg/Tab) 21 Tab/Dosepak] 4 mg PO ASDIR # 21 tab.ds.pk 07/27/17 Metronidazole [Flagyl 500 mg Tablet] 500 mg PO Q8 #90 tablet 07/27/17 Allergies/Adverse Reactions: amoxicillin [Amoxicillin] Adverse Reaction (Verified 07/26/17 11:39) visual hallucinations erythromycin base [Erythromycin Base] Adverse Reaction (Verified 07/26/17 11:39) visual hallucinations Potassium Clavulanate * [From Augmentin] Adverse Reaction (Verified 07/26/17 11: 39) visual hallucinations Review of Systems Constitutional: ABSENT: chills, fever(s), headache(s), weight gain, weight loss Eyes: ABSENT: visual disturbances Ears: ABSENT: hearing changes Cardiovascular: ABSENT: chest pain, dyspnea on exertion, edema, orthropnea, palpitations Respiratory: PRESENT: cough, dyspnea. ABSENT: hemoptysis Gastrointestinal: PRESENT: diarrhea. ABSENT: abdominal pain, constipation, hematemesis, hematochezia, nausea, vomiting Genitourinary: ABSENT: dysuria, hematuria Musculoskeletal: ABSENT: joint swelling Integumentary: PRESENT: erythema. ABSENT: rash, wounds Neurological: ABSENT: abnormal gait, abnormal speech, confusion, dizziness, focal weakness, syncope Psychiatric: ABSENT: anxiety, depression, homidical ideation, suicidal ideation Endocrine: ABSENT: cold intolerance, heat intolerance, polydipsia, polyuria Hematologic/Lymphatic: ABSENT: easy bleeding, easy bruising Physical Exam Vital Signs: Temp Pulse Resp BP Pulse Ox 98.6 F 104 H 19 113/66 92 07/26/17 11:46 07/26/17 11:46 07/26/17 15:02 07/26/17 15:01 07/26/17 15:02 General appearance: PRESENT: no acute distress, obese, well-developed, well- nourished Head exam: PRESENT: normocephalic Eye exam: PRESENT: EOMI. ABSENT: scleral icterus Mouth exam: PRESENT: moist Neck exam: ABSENT: carotid bruit, JVD, lymphadenopathy, thyromegaly Respiratory exam: PRESENT: rhonchi, unlabored. ABSENT: rales, wheezes Cardiovascular exam: PRESENT: RRR. ABSENT: diastolic murmur, rubs, systolic murmur Pulses: PRESENT: normal dorsalis pedis pul Vascular exam: PRESENT: normal capillary refill GI/Abdominal exam: PRESENT: normal bowel sounds, soft. ABSENT: distended, guarding, mass, organolmegaly, rebound, tenderness Rectal exam: PRESENT: deferred Extremities exam: PRESENT: full ROM. ABSENT: calf tenderness, clubbing, pedal edema Neurological exam: PRESENT: alert, awake, oriented to person, oriented to place , oriented to time, oriented to situation, CN II-XII grossly intact. ABSENT: motor sensory deficit Psychiatric exam: PRESENT: appropriate affect, normal mood. ABSENT: homicidal ideation, suicidal ideation Skin exam: PRESENT: dry, intact, warm, other - Erythema and tenderness of the right great toe. Edema and streaking up the legs. ABSENT: cyanosis, rash Results Impressions: Acute Abdomen Series 07/26/17 11:53 IMPRESSION: NO RADIOGRAPHIC EVIDENCE FOR ACUTE ABDOMINAL DISEASE. Toe X-Ray 07/26/17 11:53 IMPRESSION: Findings raise the possibility of osteomyelitis involving the base of the 1st distal phalanx. Chest/Abdomen CTA 07/26/17 13:31 IMPRESSION: 1. No pulmonary embolus or aortic aneurysm. 2. Chronic right lung changes, grossly nonprogressive. Assessment & Plan - Diagnosis (1) Diarrhea Qualifiers: Diarrhea type: presumed infectious Qualified Code(s): A09 - Infectious gastroenteritis and colitis, unspecified Is this a current diagnosis for this admission?: Yes Plan: C. difficile infection in the past. Patient is being tested for C. difficile. Will wait for results. Hydrate in the meanwhile. (2) COPD (chronic obstructive pulmonary disease) Is this a current diagnosis for this admission?: Yes Plan: She does not have an acute exacerbation. Will continue inhalers. (3) Chronic respiratory failure with hypoxia Is this a current diagnosis for this admission?: Yes Plan: Patient continued on supplemental oxygen. (4) Cellulitis Is this a current diagnosis for this admission?: Yes Plan: Patient on vancomycin and ceftriaxone. (5) Osteomyelitis of toe of right foot Is this a current diagnosis for this admission?: Yes Plan: Return for right total ostial however this may be gout. Will check uric acid level. Will also order MRI of the foot. (6) Hypokalemia Is this a current diagnosis for this admission?: Yes Plan: Is likely due to diarrhea. Will give patient replacement and monitor. - Time Time Spent: 30 to 50 Minutes Anticipated discharge: Home with Homehealth Within: within 24 hours - Inpatient Certification Medical Necessity: Need For IV Fluids, Need for IV Antibiotics
--- NOTE | 2017-07-28 16:42 | PDOC DISCHARGE SUMMARY ---
General - Admit/Disc Date/PCP Admission Date/Primary Care Provider: 07/26/17 16:51 MEGHANN STEELE JR, MD Discharge Date: 07/27/17 - Discharge Diagnosis (1) Diarrhea Is this a current diagnosis for this admission?: Yes (2) COPD (chronic obstructive pulmonary disease) Is this a current diagnosis for this admission?: Yes (3) Chronic respiratory failure with hypoxia Is this a current diagnosis for this admission?: Yes (4) Cellulitis Is this a current diagnosis for this admission?: Yes (5) Osteomyelitis of toe of right foot Is this a current diagnosis for this admission?: Yes (6) Hypokalemia Is this a current diagnosis for this admission?: Yes - Additional Information Resuscitation Status: Full Code Discharge Diet: Diabetic Discharge Activity: Activity As Tolerated, Balance Activity w/Rest Prescriptions: Allopurinol [Zyloprim 100 mg Tablet] 100 mg PO DAILY 30 Days #30 tablet Ciprofloxacin HCl [Cipro 500 mg Tablet] 500 mg PO BID 30 Days #60 tablet Doxycycline Hyclate [Vibramycin 100 mg Tablet] 100 mg PO Q12 30 Days #60 tablet Lactobacillus Acidophilus [Acidophilus Lactobacilli] 1 each PO DAILY #30 capsule Methylprednisolone [Medrol Dosepack (4 mg/Tab) 21 Tab/Dosepak] 4 mg PO ASDIR # 21 tab.ds.pk Metronidazole [Flagyl 500 mg Tablet] 500 mg PO Q8 #90 tablet Home Medications: Albuterol Sulfate [Albuterol Sulfate 2.5mg/3 mL] 1 vial IH RTQ4HP PRN 07/26/17 Aspirin [Aspirin EC] 81 mg PO DAILY 07/26/17 Fluticasone/Salmeterol [Advair 500-50 Diskus 28 Dose] 1 inh IH Q12 07/26/17 Furosemide [Lasix 40 mg Tablet] 40 mg PO QAM 07/26/17 Levothyroxine Sodium [Synthroid 0.088 mg Tablet] 88 mcg PO Q6AM 07/26/17 Melatonin/Pyridoxine HCl (B6) [Melatonin 3 mg Tablet] 1 tab PO QHS 07/26/17 Metformin HCl [Metformin HCl ER] 500 mg PO ACBRKFST 07/26/17 Pantoprazole Sodium [Protonix] 40 mg PO DAILY 07/26/17 Sertraline HCl [Zoloft 50 mg Tablet] 50 mg PO DAILY 07/26/17 Tiotropium [place] [Spiriva] 1 puff IH DAILY 07/26/17 Tramadol HCl [Ultram 50 mg Tablet] 50 mg PO Q12HP PRN 07/26/17 Allopurinol [Zyloprim 100 mg Tablet] 100 mg PO DAILY 30 Days #30 tablet Ciprofloxacin HCl [Cipro 500 mg Tablet] 500 mg PO BID 30 Days #60 tablet Doxycycline Hyclate [Vibramycin 100 mg Tablet] 100 mg PO Q12 30 Days #60 tablet 07/27/17 Lactobacillus Acidophilus [Acidophilus Lactobacilli] 1 each PO DAILY #30 capsule 07/27/17 Methylprednisolone [Medrol Dosepack (4 mg/Tab) 21 Tab/Dosepak] 4 mg PO ASDIR # 21 tab.ds.pk 07/27/17 Metronidazole [Flagyl 500 mg Tablet] 500 mg PO Q8 #90 tablet 07/27/17 History of Present Illness History of Present Illness: TRENTON MCCOY is a 71 year old female with a history of COPD on home oxygen and diabetes in with a two-week history of right toe pain and redness. Patient denied any trauma to the foot. Patient denied any history of gout. Patient also complains of cough with shortness of breath but denies any fevers or chills. Patient denies any chest pain. Patient is also complaining of diarrhea. ED. X-ray of the right foot and noted what was concerning for possible osteo- patient was started on ceftriaxone and vancomycin hospitalist was consulted to evaluate patient for possible osteomyelitis of her right toe. Original H&P was dictated by myself Dr. Zahida Choi. Hospital Course Hospital Course: Patient presented with multiple complaints. Patient later on revealed that if she is not discharged by midnight she will sign herself out AMA. There is concerned that patient may have ostial of the right great toe. However patient uric acid was elevated at 7.7. Patient was not given colchicine as she was already having diarrhea from her C. difficile. Patient was therefore put on a steroid taper for her gouty arthropathy and started on allopurinol. Due to the seriousness of osteo-myelitis patient underwent MRI however the MRI was negative. Patient was initially prescribed antibiotics to take however patient was contacted and was told to only take the Flagyl 500 mg 3 times daily and the doxycycline 100 mg p.o. twice daily for 14 days. Patient no longer needs to follow-up with Dr. Lopez. Patient was given potassium replacement. She did not have a COPD exacerbation however she was congested and was started on Mucomyst along with nebs. Patient did sound better the following morning. Patient was started on sliding scale insulin for her diabetes. However patient hemoglobin A1c is only 5.6 therefore she is well controlled. Patient only had 3 bowel movements while in the hospital briefly. Patient may have complained of some chest pain while in the ED however her troponins were negative and by this time I saw the patient she was not complaining of any chest pain. Patient is being discharged home with home health and a walker. Patient also has a caregiver who takes care of her on a daily basis. Physical Exam Vital Signs: Temp Pulse Resp BP Pulse Ox 98.3 F 107 H 20 106/61 97 07/27/17 15:57 07/27/17 15:57 07/27/17 15:57 07/27/17 15:57 07/27/17 15:57 Intake & Output 07/27/17 07/28/17 07/29/17 06:59 06:59 06:59 Intake Total 1362 540 Output Total 200 Balance 1162 540 Weight 86.3 kg General appearance: PRESENT: no acute distress, well-developed, well-nourished Head exam: PRESENT: atraumatic, normocephalic Eye exam: PRESENT: conjunctiva pink, EOMI, PERRLA. ABSENT: scleral icterus Ear exam: PRESENT: normal external ear exam Mouth exam: PRESENT: moist, tongue midline Neck exam: ABSENT: carotid bruit, JVD, lymphadenopathy, thyromegaly Respiratory exam: PRESENT: clear to auscultation jeff. ABSENT: rales, rhonchi, wheezes Cardiovascular exam: PRESENT: RRR. ABSENT: diastolic murmur, rubs, systolic murmur Pulses: PRESENT: normal dorsalis pedis pul Vascular exam: PRESENT: normal capillary refill GI/Abdominal exam: PRESENT: normal bowel sounds, soft. ABSENT: distended, guarding, mass, organolmegaly, rebound, tenderness Rectal exam: PRESENT: deferred Extremities exam: PRESENT: full ROM. ABSENT: calf tenderness, clubbing, pedal edema Neurological exam: PRESENT: alert, awake, oriented to person, oriented to place , oriented to time, oriented to situation, CN II-XII grossly intact. ABSENT: motor sensory deficit Psychiatric exam: PRESENT: appropriate affect, normal mood. ABSENT: homicidal ideation, suicidal ideation Skin exam: PRESENT: dry, intact, warm, other - Erythema of the right toe without tenderness still with streaky cellulitis of both legs. ABSENT: cyanosis , rash Results Laboratory Results: 07/27/17 06:06 07/26/17 07/27/17 18:01 00:12 Troponin I < 0.012 0.014 Impressions: Acute Abdomen Series 07/26/17 11:53 IMPRESSION: NO RADIOGRAPHIC EVIDENCE FOR ACUTE ABDOMINAL DISEASE. Toe X-Ray 07/26/17 11:53 IMPRESSION: Findings raise the possibility of osteomyelitis involving the base of the 1st distal phalanx. Chest/Abdomen CTA 07/26/17 13:31 IMPRESSION: 1. No pulmonary embolus or aortic aneurysm. 2. Chronic right lung changes, grossly nonprogressive. Lower Extremity MRI 07/27/17 00:00 IMPRESSION: NO EVIDENCE FOR OSTEOMYELITIS. Plan Time Spent: Greater than 30 Minutes
== END 2017-07-27 17:30 | disposition home or self-care (01) | DRG 372 ==
LOC: ER 11:38 → EH 16:51 → 5 18:58
PROVIDERS: ADMIT Pediatrics; ATTEND Pediatrics
PROC: 3E0F73Z Introduction of Anti-inflammatory into Respiratory Tract, Via Natural or Artificial Opening (ICD-10-PCS; principal; 2017-07-26)
DX: A04.72 Enterocolitis due to Clostridium difficile, not specified as recurrent (principal); L03.116 Cellulitis of left lower limb; J96.11 Chronic respiratory failure with hypoxia; L03.115 Cellulitis of right lower limb; M10.9 Gout, unspecified; J44.9 Chronic obstructive pulmonary disease, unspecified; E87.6 Hypokalemia; I50.9 Heart failure, unspecified; I25.10 Atherosclerotic heart disease of native coronary artery without angina pectoris; I11.0 Hypertensive heart disease with heart failure; E03.9 Hypothyroidism, unspecified; K21.9 Gastro-esophageal reflux disease without esophagitis; F32.9 Major depressive disorder, single episode, unspecified; M19.90 Unspecified osteoarthritis, unspecified site; D64.9 Anemia, unspecified; E11.65 Type 2 diabetes mellitus with hyperglycemia; I45.10 Unspecified right bundle-branch block; I25.2 Old myocardial infarction; Z79.899 Other long term (current) drug therapy; Z79.82 Long term (current) use of aspirin; Z99.81 Dependence on supplemental oxygen; Z85.118 Personal history of other malignant neoplasm of bronchus and lung; Z85.841 Personal history of malignant neoplasm of brain; Z90.49 Acquired absence of other specified parts of digestive tract; Z87.891 Personal history of nicotine dependence; Z80.1 Family history of malignant neoplasm of trachea, bronchus and lung
CPT/HCPCS: 36415; 71275; 74022; 80048; 80053; 82533; 82550; 82553; 82962; 83036; 83690; 83735; 84439; 84443; 84481; 84484; 84550; 85025; 85652; 86140; 87040; 87070; 87205; 87493; 93005; 93010; 94640; 94667; 96365; 96367; 99285; A9576; J0696; J1650; J3370; J3480; J7060; J7512; J7620

== ENCOUNTER 2017-08-12 11:42 | Inpatient (IN) | payer MEDICARE, OTHER ==
[2017-08-12] MEDS ORDERED: NORMAL SALINE 1000 ML 1,000 ML IV ONE (11:54)
--- NOTE | 2017-08-12 11:56 | ER Document Report ---
ED Medical Screen (RME) - General Chief Complaint: General Weakness Stated Complaint: WEAKNESS Time Seen by Provider: 08/12/17 11:52 Mode of Arrival: Wheelchair Information source: Patient TRAVEL OUTSIDE OF THE [place] IN LAST 30 DAYS: No - HPI Patient complains to provider of: weakness Onset: Other - pt states she has had increasing weakness for the past few days. ?h/o C. diff. Also with some difficulty breathing -- has h/o COPD - Related Data Allergies/Adverse Reactions: amoxicillin [Amoxicillin] Adverse Reaction (Verified 07/26/17 11:39) visual hallucinations erythromycin base [Erythromycin Base] Adverse Reaction (Verified 07/26/17 11:39) visual hallucinations Potassium Clavulanate * [From Augmentin] Adverse Reaction (Verified 07/26/17 11: 39) visual hallucinations Past Medical History - Past Medical History Cardiac Medical History: Reports: Hx Congestive Heart Failure, Hx Coronary Artery Disease, Hx Heart Attack, Hx Hypertension Denies: Hx DVT, Hx Hypercholesterolemia, Hx Pulmonary Embolism Pulmonary Medical History: Reports: Hx Asthma, Hx Bronchitis, Hx COPD - O2 dependent at night and as needed during the day, Hx Pneumonia Denies: Hx Sleep Apnea, Hx Tuberculosis Neurological Medical History: Denies: Hx Seizures Endocrine Medical History: Reports: Hx Hypothyroidism. Denies: Hx Diabetes Mellitus Type 1, Hx Diabetes Mellitus Type 2, Hx Hyperthyroidism Renal/ Medical History: Denies: Hx End Stage Renal Disease, Hx Kidney Stones, Hx Peritoneal Dialysis Malignancy Medical History: Reports: Hx Brain Cancer - Lung cancer with brain metastases, 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 GI Medical History: Reports: Hx Gastroesophageal Reflux Disease. Denies: Hx Cirrhosis, Hx Hepatitis, Hx Ulcer Musculoskeltal Medical History: Reports Hx Arthritis, Denies Hx Multiple Sclerosis, Reports Hx Musculoskeletal Deformity, Reports Hx Musculoskeletal Trauma Psychiatric Medical History: Reports: Hx Depression Denies: Hx Bipolar Disorder, Hx Schizophrenia Infectious Medical History: Reports: Hx C-Diff. Denies: Hx Hepatitis Past Surgical History: Reports: Hx Cholecystectomy, Hx Orthopedic Surgery - Foot surgery - Immunizations Hx Diphtheria, Pertussis, Tetanus Vaccination: Yes History of Influenza Vaccine for 04/2017 - 09/2017 Season: No Physical Exam - Vital signs Vitals: Temp Pulse Resp BP Pulse Ox 98.1 F 106 H 24 H 138/72 H 96 08/12/17 11:48 08/12/17 11:48 08/12/17 11:48 08/12/17 11:48 08/12/17 11:48 Course - Vital Signs Vital signs: Temp Pulse Resp BP Pulse Ox 98.1 F 106 H 24 H 138/72 H 96 08/12/17 11:48 08/12/17 11:48 08/12/17 11:48 08/12/17 11:48 08/12/17 11:48
[2017-08-12 13:04] LABS: ABSOLUTE EOSINOPHILS # (AUTO) 0.3 10^3/uL (0.0-0.6); ABSOLUTE LYMPHOCYTES (AUTO) 0.8 10^3/uL (0.5-4.7); ABSOLUTE MONOCYTES (AUTO) 0.5 10^3/uL (0.1-1.4); ABSOLUTE NEUT (AUTO) 3.7 10^3/uL (1.7-8.2); BASOPHILS % (AUTO) 0.4 % (0-2); EOSINOPHILS % (AUTO) 5.1 % (0-6); HEMATOCRIT 33.3 % (36.0-47.0); HEMOGLOBIN 11.1 g/dL (12.0-15.5); LYMPHOCYTES % (AUTO) 15.1 % (13-45); MEAN CORPUSCULAR HEMOGLOBIN 31.8 pg (27.0-33.4); MEAN CORPUSCULAR HGB CONC 33.3 g/dL (32.0-36.0); MEAN CORPUSCULAR VOLUME 95 fl (80-97); MONOCYTES % (AUTO) 9.4 % (3-13); PLATELET COUNT 243 10^3/uL (150-450); RED BLOOD COUNT 3.49 10^6/uL (3.72-5.28); RED CELL DISTRIBUTION WIDTH 14.6 % (11.5-14.0); TOTAL CELLS COUNTED % (AUTO) 100 %; WHITE BLOOD COUNT 5.3 10^3/uL (4.0-10.5)
--- NOTE | 2017-08-12 13:08 | ER Document Report ---
ED General - General Chief Complaint: General Weakness Stated Complaint: WEAKNESS Time Seen by Provider: 08/12/17 11:52 Mode of Arrival: Wheelchair Notes: Patient is a 71-year-old female who presents emergency department with her granddaughter with a chief complaint of shortness of breath, dyspnea on exertion for the past 4 days and weakness for the past 2-3 weeks. Patient states that she was recently admitted here July 26 for a C. difficile colitis. She states that she signed out AMA because she had to go to court. She states since then she is compliant with the medications she was discharged on and has not had an episode of diarrhea for approximately 1 week. Otherwise she denies any chest pain. Denies any orthopnea, dizziness, vision changes, lightheadedness, nausea, vomiting, abdominal pain, diarrhea or constipation. Patient does admit to a productive cough. Denies any fevers or chills Primary care is with Dr. 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 IN LAST 30 DAYS: No - Related Data Allergies/Adverse Reactions: amoxicillin [Amoxicillin] Adverse Reaction (Verified 07/26/17 11:39) visual hallucinations erythromycin base [Erythromycin Base] Adverse Reaction (Verified 07/26/17 11:39) visual hallucinations Potassium Clavulanate * [From Augmentin] Adverse Reaction (Verified 07/26/17 11: 39) visual hallucinations Home Medications: Current Home Medications Allopurinol [Zyloprim 100 mg Tablet] 100 mg PO DAILY 08/12/17 [History] Aspirin [Aspirin EC] 81 mg PO DAILY 08/12/17 [History] Doxycycline Hyclate 100 mg PO Q12H 08/12/17 [History] Furosemide [Lasix 40 mg Tablet] 40 mg PO QAM 08/12/17 [History] Levothyroxine Sodium [Synthroid] 88 mcg PO DAILY 08/12/17 [History] Metformin HCl [Metformin HCl ER] 500 mg PO DAILY 08/12/17 [History] Metronidazole 500 mg PO Q8H 08/12/17 [History] Pantoprazole Sodium 40 mg PO DAILY 08/12/17 [History] Sertraline HCl 50 mg PO QAM 08/12/17 [History] Past Medical History - General Information source: Patient - Social History Smoking Status: Never Smoker Chew tobacco use (# tins/day): No Frequency of alcohol use: None Drug Abuse: None Family History: Malignancy - Lung cancer Patient has suicidal ideation: No Patient has homicidal ideation: No - Past Medical History Cardiac Medical History: Reports: Hx Congestive Heart Failure, Hx Coronary Artery Disease, Hx Heart Attack, Hx Hypertension Denies: Hx DVT, Hx Hypercholesterolemia, Hx Pulmonary Embolism Pulmonary Medical History: Reports: Hx Asthma, Hx Bronchitis, Hx COPD - O2 dependent at night and as needed during the day, Hx Pneumonia Denies: Hx Sleep Apnea, Hx Tuberculosis Neurological Medical History: Denies: Hx Seizures Endocrine Medical History: Reports: Hx Hypothyroidism. Denies: Hx Diabetes Mellitus Type 1, Hx Diabetes Mellitus Type 2, Hx Hyperthyroidism Renal/ Medical History: Denies: Hx End Stage Renal Disease, Hx Kidney Stones, Hx Peritoneal Dialysis Malignancy Medical History: Reports: Hx Brain Cancer - Lung cancer with brain metastases, 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 GI Medical History: Reports: Hx Gastroesophageal Reflux Disease. Denies: Hx Cirrhosis, Hx Hepatitis, Hx Ulcer Musculoskeltal Medical History: Reports Hx Arthritis, Denies Hx Multiple Sclerosis, Reports Hx Musculoskeletal Deformity, Reports Hx Musculoskeletal Trauma Psychiatric Medical History: Reports: Hx Depression Denies: Hx Bipolar Disorder, Hx Schizophrenia Infectious Medical History: Reports: Hx C-Diff. Denies: Hx Hepatitis Past Surgical History: Reports: Hx Cholecystectomy, Hx Orthopedic Surgery - Foot surgery - Immunizations Hx Diphtheria, Pertussis, Tetanus Vaccination: Yes Hx Pneumococcal Vaccination: 08/30/12 Review of Systems - Review of Systems Constitutional: See HPI Cardiovascular: See HPI Respiratory: See HPI Gastrointestinal: No symptoms reported Musculoskeletal: No symptoms reported Neurological/Psychological: See HPI -: Yes All other systems reviewed and negative Physical Exam - Vital signs Vitals: Temp Pulse Resp BP Pulse Ox 98.1 F 106 H 24 H 138/72 H 96 08/12/17 11:48 08/12/17 11:48 08/12/17 11:48 08/12/17 11:48 08/12/17 11:48 - Notes Notes: PHYSICAL EXAM GENERAL: Alert, interacts well. HEAD: Normocephalic, atraumatic. EYES: Pupils equal, round, and reactive to light. Extraocular movements intact. ENT: Oral mucosa moist, tongue midline. NECK: Full range of motion. Supple. Trachea midline. LUNGS: Diffuse wheezes and rhonchi throughout without respiratory distress. HEART: Regular rate and rhythm. No murmurs, gallops, or rubs. ABDOMEN: Soft, nondistended, nontender. No guarding, rebound, or rigidity.. Bowel sounds present in all 4 quadrants. EXTREMITIES: Moves all 4 extremities spontaneously. 1+ edema, radial and dorsalis pedis pulses 2/4 bilaterally. No cyanosis. NEUROLOGICAL: Alert and oriented x4. Normal speech. PSYCH: Normal affect, normal mood. SKIN: Warm, dry, normal turgor. No rashes or lesions noted. Course - Re-evaluation Re-evalutation: 08/12/17 16:30 Patient is a 71-year-old female who is hemodynamically stable with sinus tachycardia, no acute distress and afebrile. Presentation is concerning for COPD exacerbation. Patient's labs without evidence of leukocytosis or anemia. Chemistry does show hypokalemia at 2.9 otherwise without evidence of MARY LOU. EKG without evidence of significant changes. Given this finding patient was given p.o. potassium and IV potassium, once that was initiated and after patient's multiple nebulizer treatments I was alerted by the nurse that patient was having episodes of sinus tachycardia from 140-180s that would last less than a minute. She states that she was in the room when these were visualized on the monitor. States that the patient was in no significant distress and just lying there. I did go and assessed the patient and a repeat EKG did show evidence of sinus tachycardia and the patient was in no acute distress. Patient was sent for a CTA of the chest given tachycardia, and cancer history to rule out PE. This did come back negative. Patient since then has been resting comfortably. Did initiate patient on IV magnesium to help with her breathing and will admit patient for COPD exacerbation. She has been accepted to telemetry under Dr. Velásquez - Vital Signs Vital signs: Temp Pulse Resp BP Pulse Ox 97.8 F 106 H 23 H 119/74 98 08/12/17 17:00 08/12/17 11:48 08/12/17 19:01 08/12/17 19:01 08/12/17 19:01 - Laboratory Result Diagrams: 08/12/17 12:20 08/12/17 12:20 Laboratory results interpreted by me: 08/12/17 08/12/17 08/12/17 12:20 12:20 13:24 RBC 3.49 L Hgb 11.1 L Hct 33.3 L RDW 14.6 H Carbonic Acid ABG pCO2 ABG pO2 ABG HCO3 ABG Total CO2 Potassium 2.9 L* Carbon Dioxide 31 H Est GFR (Non-Af Amer) 58 L Glucose 112 H Uric Acid Magnesium Total Protein 5.9 L Albumin 3.4 L Ur Leukocyte Esterase TRACE H 08/12/17 08/12/17 08/12/17 16:11 16:32 16:32 RBC Hgb Hct RDW Carbonic Acid 1.37 H ABG pCO2 45.5 H ABG pO2 78.2 L ABG HCO3 27.7 H ABG Total CO2 29.1 H Potassium Carbon Dioxide Est GFR (Non-Af Amer) Glucose Uric Acid 7.9 H Magnesium 1.3 L Total Protein Albumin Ur Leukocyte Esterase - Diagnostic Test Radiology reviewed: Image reviewed, Reports reviewed - EKG Interpretation by Me EKG shows normal: Sinus rhythm Rate: Tachycardia Rhythm: NSR When compared to previous EKG there are: Changes noted Discharge - Discharge Clinical Impression: COPD exacerbation, Hypokalemia Condition: Stable Disposition: ADMITTED INPATIENT Admitting Provider: Hospitalist Unit Admitted: Telemetry
[2017-08-12 13:14] LABS: A TYPE INFLUENZA AG NEGATIVE (NEGATIVE); B INFLUENZA AG NEGATIVE (NEGATIVE)
[2017-08-12 13:18] LABS: ALANINE AMINOTRANSFERASE 23 U/L (9-52); ALBUMIN 3.4 g/dL (3.5-5.0); ALKALINE PHOSPHATASE 52 U/L (38-126); ANION GAP 12 (5-19); ASPARTATE AMINO TRANSFERASE 25 U/L (14-36); BILIRUBIN,DIRECT 0.4 mg/dL (0.0-0.4); BILIRUBIN,TOTAL 0.4 mg/dL (0.2-1.3); BLOOD UREA NITROGEN 14 mg/dL (7-20); CALCIUM 9.5 mg/dL (8.4-10.2); CARBON DIOXIDE 31 mmol/L (22-30); CHLORIDE 100 mmol/L (98-107); CREATINE KINASE 45 U/L (30-135); GLUCOSE 112 mg/dL (75-110); SODIUM 143.3 mmol/L (137-145); TOTAL PROTEIN 5.9 g/dL (6.3-8.2)
[2017-08-12 13:20] LABS: POTASSIUM 2.9 mmol/L (3.6-5.0)
--- NOTE | 2017-08-12 13:25 | RADIOLOGY REPORT (SQ) ---
EXAM DESCRIPTION: CHEST PA/LAT COMPLETED DATE/TIME: 08/12/2017 12:56 pm REASON FOR STUDY: weakness COMPARISON: Chest x-ray 05/07/2017, 07/11/2017. CT angiogram chest 07/26/2017. EXAM PARAMETERS: NUMBER OF VIEWS: two views TECHNIQUE: Digital Frontal and Lateral radiographic views of the chest acquired. RADIATION DOSE: NA LIMITATIONS: none FINDINGS: LUNGS AND PLEURA: Mild left basilar atelectasis. No pleural effusion or pneumothorax. MEDIASTINUM AND HILAR STRUCTURES: Redemonstration of chronic changes at the right hilum. HEART AND VASCULAR STRUCTURES: Heart normal size. No evidence for failure. BONES: No acute findings. HARDWARE: None in the chest. IMPRESSION: Mild left basilar atelectasis. TECHNICAL DOCUMENTATION: JOB ID: [id number] [employer]- All Rights Reserved
[2017-08-12 13:27] LABS: CREATINE KINASE MB 0.99 ng/mL (<4.55); TROPONIN I 0.013 ng/mL
[2017-08-12] MEDS ORDERED: METHYLPREDNISOLONE INJ 125 MG/2 ML SDV IV ONE (13:54)
[2017-08-12] MEDS ORDERED: IPRATROPIUM/ALBUTEROL 0.5-2.5 MG/3 ML AMPUL NEB ONE (13:54)
[2017-08-12] MEDS: ALBUTEROL SULFATE 0.083% NEB 2.5 MG/3 ML AMPUL NEB SCH ×2 (14:43→14:44)
[2017-08-12] MEDS ORDERED: POTASSI CL 20 MEQ/50 ML RIDER 20 MEQ/50 ML RTUPB IV ONE (14:55)
[2017-08-12] MEDS ORDERED: POTASSIUM CHLORIDE 10 MEQ TABLET.SA PO ONE (14:55)
[2017-08-12 15:37] LABS: APPEARANCE,URINE CLEAR; BILIRUBIN,URINE NEGATIVE (NEGATIVE); COLOR,URINE YELLOW; GLUCOSE, URINE NEGATIVE (NEGATIVE); KETONES,URINE NEGATIVE (NEGATIVE); LEUKOCYTE ESTERASE,URINE TRACE (NEGATIVE); NITRITE,URINE NEGATIVE (NEGATIVE); PROTEIN,URINE NEGATIVE (NEGATIVE); URINE SPECIFIC GRAVITY 1.005; UROBILINOGEN,URINE NEGATIVE mg/dL (<2.0)
--- NOTE | 2017-08-12 16:41 | EKG REPORT ---
SEVERITY:- ABNORMAL ECG - SINUS TACHYCARDIA RIGHT BUNDLE BRANCH BLOCK : Confirmed by: Issa Martinez MD 12-Aug-2017 16:40:43
--- NOTE | 2017-08-12 17:16 | RADIOLOGY REPORT (SQ) ---
EXAM DESCRIPTION: CTA CHEST COMPLETED DATE/TIME: 08/12/2017 4:52 pm REASON FOR STUDY: SOB tachycardia COMPARISON: 07/26/2017. TECHNIQUE: CT scan of the chest performed using helical scanning technique with dynamic intravenous contrast injection. Images reviewed with lung, soft tissue and bone windows. Reconstructed coronal and sagittal MPR images reviewed. Additional 3 dimensional post-processing performed to develop Maximal Intensity Projection images (AK P). All images stored on PACS. All CT scanners at this facility use dose modulation, iterative reconstruction, and/or weight based d osing when appropriate to reduce radiation dose to as low as reasonably achievable (ALARA). [facility]: Dose Right [facility]: CareDose [facility]: Dose Right [facility]: Teradose 4D [facility]: Goodie Goodie App CONTRAST TYPE AND DOSE: contrast/concentration: Isovue 370.00 mg/ml; Total Contrast Delivered: 76.0 ml; Total Saline Delivered: 110.0 ml Contrast bolus adequate for pulmonary arteries and aorta. RENAL FUNCTION: BUN 14 creatinine 0.94. RADIATION DOSE: CT Rad equipment meets quality standard of care and radiation dose reduction techniq ues were employed. CTDIvol: 9.9 - 19.1 mGy. DLP: 758 mGy-cm. . LIMITATIONS: None. FINDINGS: LUNGS AND PLEURA: Stable chronic scarring in the perihilar right lung. No masses, infiltr ates, pneumothorax. No pleural effusions, calcifications. AORTA AND GREAT VESSELS: No aneurysm. Contrast bolus not optimized for the aorta. HEART: No pericardial effusion. No significant coronary artery calcifications. PULMONARY ARTERIES: No emboli visualized in the main pulmonary arteries or the segmental branches. HILAR AND MEDIASTINAL STRUCTURES: No identified masses or abnormal nodes. HARDWARE: None in the chest. UPPER ABDOMEN: No significant findings. Gas in the biliary system and cortical cyst in the right kid evan, both chronic and stable findings. Limited exam. THYROID AND OTHER SOFT TISSUES: No masses. No adenopathy. BONES: No acute or significant finding. 3D MIPS: Confirm above findings. OTHER: No other significant finding. IMPRESSION: NORMAL CTA OF THE CHEST. NO PULMONARY EMBOLI. STABLE CHRONIC SCARRING IN THE RIGHT LUNG . NO ACUTE FINDINGS. COMMENT: Quality ID # [id number]: Final reports with documentation of one or more dose reduction techniques (e.g., Automated exposure control, adjustment of the mA and/or kV according to patient size, use of iterative reconstruction technique) TECHNICAL DOCUMENTATION: JOB ID: [id number] [employer]- All Rights Reserved
[2017-08-12 17:23] LABS: ARTERIAL BLOOD BASE EXCESS 2.5 mmol/L; ARTERIAL BLOOD FIO2 2L; ARTERIAL BLOOD H2CO3 1.37 mmol/L (1.05-1.35); ARTERIAL BLOOD HCO3 27.7 mmol/L (20-26); ARTERIAL BLOOD O2 SATURATION 95.5 % (94-98); ARTERIAL BLOOD PCO2 45.5 mmHg (35-45); ARTERIAL BLOOD PO2 78.2 mmHg (80-100); ARTERIAL BLOOD TOTAL CO2 29.1 mmol/L (21-25)
[2017-08-12] MEDS ORDERED: MAGNESIUM SULFATE 4 GM/100 ML RTUPB IV ONE (17:24)
[2017-08-12] MEDS ORDERED: MAGNESIUM SULFATE/D5W 1 GM/100 ML RTUPB IV SCH (17:30)
[2017-08-12] MEDS ORDERED: ZOLPIDEM TARTRATE 5 MG TABLET PO PRN (17:38)
[2017-08-12] MEDS ORDERED: ACETAMINOPHEN 325 MG TABLET PO PRN (17:38)
[2017-08-12] MEDS ORDERED: ONDANSETRON HCL INJ/PF 4 MG/2 ML SDV IV PRN (17:38)
[2017-08-12] MEDS: MAGNESIUM SULFATE/D5W 1 GM/100 ML RTUPB IV SCH ×2 (18:57→19:19)
[2017-08-12] MEDS: METHYLPREDNISOLONE INJ 40 MG/1 ML SDV IV SCH (18:57)
[2017-08-12] MEDS ORDERED: GLUCAGON,HUMAN RECOMB 1 MG INJ IM PRN (19:14)
[2017-08-12] MEDS ORDERED: DEXTROSE 50%-WATER 25 GM/50 ML DISP.SYRIN IV PRN ×2 (19:14)
[2017-08-12] MEDS ORDERED: DEXTROSE 40% GEL 15 GM TUBE PO PRN ×2 (19:14)
[2017-08-12] MEDS ORDERED: FUROSEMIDE INJ/PF 20 MG/2 ML SDV IV SCH (19:30)
[2017-08-12] MEDS ORDERED: FUROSEMIDE INJ/PF 20 MG/2 ML SDV IV ONE (19:30)
--- NOTE | 2017-08-12 19:37 | PDOC H&P ---
History of Present Illness Admission Date/PCP: 08/12/17 17:40 MERCEDES STRANGE DO History of Present Illness: TRENTON MCCOY is a 71 year old female presents to ED accompanied by plasterer tender who is assisting in providing information. Accordingly patient was discharged recently from this institution when she was treated for C. difficile. She states that patient was not doing well. She has not finalized the course of antibiotics yet. Casing In Line Feeder complains of patient seing people that are not in the room. Patient also had been having shortness of breath and having productive cough of thick phlegm. Patient complains of pain in her right great toe. Patient had been getting nebulizer treatments every 6 hours. Diarrhea has receded. Accordingly there is no fever or chills. During the course of evaluation in emergency room both potassium and magnesium were low critically and prompted to consult hospitalist service for further management needs my attention. Past Medical History Cardiac Medical History: Reports: Congestive Heart Failure, Coronary Artery Disease, Myocardial Infarction, Hypertension Denies: DVT, Hyperlipidema, Pulmonary Embolism Pulmonary Medical History: Reports: Asthma, Bronchitis, Chronic Obstructive Pulmonary Disease (COPD) - O2 dependent at night and as needed during the day, Pneumonia Denies: Sleep Apnea, Tuberculosis EENT Medical History: Reports: None Neurological Medical History: Reports: None Denies: Seizures Endocrine Medical History: Reports: Diabetes Mellitus Type 2, Hypothyroidism Denies: Hyperthyroidism Renal/ Medical History: Denies: End Stage Renal Disease Malignancy Medical History: Reports: Brain Cancer - Lung cancer with brain metastases, 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 GI Medical History: Reports: Gastroesophageal Reflux Disease Denies: Cirrhosis, Hepatitis Musculoskeltal Medical History: Reports: Arthritis Skin Medical History: Reports: None Psychiatric Medical History: Reports: Depression Denies: Bipolar Disorder Traumatic Medical History: Reports: None Hematology: Reports: Anemia, Bleeding Tendencies Infectious Medical History: Reports: Clostridium Difficile Past Surgical History Past Surgical History: Reports: Cholecystectomy, Orthopedic Surgery - Foot surgery Social History Information Source: Friend Lives with: Friend Smoking Status: Never Smoker Frequency of Alcohol Use: None Hx Recreational Drug Use: No Drugs: None Hx Prescription Drug Abuse: No - Advance Directive Resuscitation Status: Full Code Family History Family History: Malignancy - Lung cancer Parental Family History Reviewed: Yes Children Family History Reviewed: Yes Sibling(s) Family History Reviewed.: Yes Medication/Allergy Home Medications: Allopurinol [Zyloprim 100 mg Tablet] 100 mg PO DAILY 08/12/17 Aspirin [Aspirin EC] 81 mg PO DAILY 08/12/17 Doxycycline Hyclate 100 mg PO Q12H 08/12/17 Furosemide [Lasix 40 mg Tablet] 40 mg PO QAM 08/12/17 Levothyroxine Sodium [Synthroid] 88 mcg PO DAILY 08/12/17 Metformin HCl [Metformin HCl ER] 500 mg PO DAILY 08/12/17 Metronidazole 500 mg PO Q8H 08/12/17 Pantoprazole Sodium 40 mg PO DAILY 08/12/17 Sertraline HCl 50 mg PO QAM 08/12/17 Allergies/Adverse Reactions: amoxicillin [Amoxicillin] Adverse Reaction (Verified 07/26/17 11:39) visual hallucinations erythromycin base [Erythromycin Base] Adverse Reaction (Verified 07/26/17 11:39) visual hallucinations Potassium Clavulanate * [From Augmentin] Adverse Reaction (Verified 07/26/17 11: 39) visual hallucinations Review of Systems Constitutional: ABSENT: fatigue, fever(s), weakness Eyes: ABSENT: visual disturbances Ears: ABSENT: hearing changes Nose, Mouth, and Throat: ABSENT: mouth pain, sore throat Cardiovascular: PRESENT: chest pain, dyspnea on exertion, edema Respiratory: PRESENT: cough, dyspnea, sputum Gastrointestinal: ABSENT: abdominal pain, diarrhea, nausea, vomiting Genitourinary: ABSENT: dysuria, hematuria Musculoskeletal: ABSENT: back pain, deformity Integumentary: ABSENT: pruritus, rash Neurological: PRESENT: weakness Physical Exam Vital Signs: Temp Pulse Resp BP Pulse Ox 97.8 F 106 H 17 112/76 96 08/12/17 17:00 08/12/17 11:48 08/12/17 17:01 08/12/17 17:01 08/12/17 16:01 General appearance: PRESENT: no acute distress, cooperative, morbidly obese Head exam: PRESENT: atraumatic, normocephalic Eye exam: PRESENT: conjunctiva pink, EOMI, PERRLA Ear exam: PRESENT: normal external ear exam, TM's normal bilaterally Mouth exam: PRESENT: moist, neck supple Teeth exam: PRESENT: poor dentation Neck exam: PRESENT: full ROM. ABSENT: JVD, lymphadenopathy, tenderness, thyromegaly Respiratory exam: PRESENT: crackles, decreased breath sounds, rhonchi Cardiovascular exam: PRESENT: RRR. ABSENT: diastolic murmur, systolic murmur Vascular exam: PRESENT: normal capillary refill GI/Abdominal exam: PRESENT: normal bowel sounds, soft. ABSENT: tenderness Extremities exam: PRESENT: joint swelling, tenderness, other - 3+ pitting edema Musculoskeletal exam: PRESENT: full ROM Neurological exam: PRESENT: alert, awake, oriented to person, oriented to place , oriented to time Psychiatric exam: PRESENT: appropriate affect, normal mood Results Impressions: Chest X-Ray 08/12/17 11:53 IMPRESSION: Mild left basilar atelectasis. Chest/Abdomen CTA 08/12/17 15:59 IMPRESSION: NORMAL CTA OF THE CHEST. NO PULMONARY EMBOLI. STABLE CHRONIC SCARRING IN THE RIGHT LUNG. NO ACUTE FINDINGS. Assessment & Plan - Diagnosis (1) Toe pain, right Is this a current diagnosis for this admission?: Yes Plan: Likely due to gout versus pseudogout. Order citrate and uric acid level. Will provide pain management and hopefully since she will be on IV steroids will improve the swelling and pain (2) COPD exacerbation Is this a current diagnosis for this admission?: Yes Plan: Patient will be placed on DuoNeb's, IV steroids, Mucinex and Zithromax (3) Hypokalemia Is this a current diagnosis for this admission?: Yes Plan: Supplement p.o. and trend (4) Acute hypoxemic respiratory failure Is this a current diagnosis for this admission?: Yes Plan: Patient will be supplemented with oxygen. Accordingly she uses oxygen as needed recommend to wean off as tolerated (5) Anemia Qualifiers: Anemia type: unspecified type Qualified Code(s): D64.9 - Anemia, unspecified Is this a current diagnosis for this admission?: Yes Plan: To trend (6) Diabetes Qualifiers: Diabetes mellitus type: type 2 Diabetes mellitus complication status: with hyperglycemia Diabetes mellitus residential insulin use: with residential use Qualified Code(s): E11.65 - Type 2 diabetes mellitus with hyperglycemia; Z79.4 - residential (current) use of insulin; Z79.4 - terminal computer operator (current) use of insulin ; Z79.4 - residential (current) use of insulin; Z79.4 - residential (current) use of insulin Plan: To place patient on Humalog sliding scale and bedside glucose before meals and at bedtime. (7) Hypomagnesemia Is this a current diagnosis for this admission?: Yes Plan: Supplement IV and trend (8) Elevated brain natriuretic peptide (BNP) level Is this a current diagnosis for this admission?: Yes Plan: Likely due to cor pulmonale. Will order echocardiogram (9) Cor pulmonale (chronic) Is this a current diagnosis for this admission?: Yes Plan: Will start IV diuresis and recommend to watch closely dropping of blood pressure.Order echocardiogram to check pulmonary pressures (10) C. difficile colitis Is this a current diagnosis for this admission?: Yes Plan: Patient has not finalize treatment for C. difficile. Will discontinue Flagyl as it may cause hallucination and instead will place her on vancomycin p.o. - Time Time Spent: 50 to 70 Minutes Medications reviewed and adjusted accordingly: Yes Anticipated discharge: Home Within: within 72 hours - Inpatient Certification Based on my medical assessment, after consideration of the patient's comorbidities, presenting symptoms, or acuity I expect that the services needed warrant INPATIENT care.: Yes I certify that my determination is in accordance with my understanding of Medicare's requirements for reasonable and necessary INPATIENT services [42 CFR 412.3e].: Yes Medical Necessity: Significant Comorbidiites Make Outpatient Treatment Too Risky , Need For Continuous Telemetry Monitoring, Need for Nebulizer Therapy and Monitoring of Response
[2017-08-12] MEDS: IPRATROPIUM/ALBUTEROL 0.5-2.5 MG/3 ML AMPUL NEB SCH (20:33)
[2017-08-12] MEDS: ALBUTEROL SULFATE 0.083% NEB 2.5 MG/3 ML AMPUL NEB PRN (21:00)
[2017-08-12 22:28] LABS: ARTERIAL BLOOD BASE EXCESS -1.6 mmol/L; ARTERIAL BLOOD H2CO3 1.21 mmol/L (1.05-1.35); ARTERIAL BLOOD HCO3 23.4 mmol/L (20-26); ARTERIAL BLOOD O2 SATURATION 97.3 % (94-98); ARTERIAL BLOOD PCO2 40.2 mmHg (35-45); ARTERIAL BLOOD PH 7.38 (7.35-7.45); ARTERIAL BLOOD PO2 96.6 mmHg (80-100); ARTERIAL BLOOD TOTAL CO2 24.6 mmol/L (21-25)
[2017-08-12 22:36] LABS: ARTERIAL BLOOD FIO2 28%
[2017-08-12] MEDS: GUAIFENESIN 600 MG TABLET.SA PO SCH (23:22)
[2017-08-12] MEDS: POTASSIUM CHLORIDE 10 MEQ TABLET.SA PO SCH (23:23)
[2017-08-12] MEDS: HEPARIN SOD (PORCINE) 5,000 UNIT/ML 1 ML SYRINGE SUBCUT SCH (23:24)
[2017-08-13] MEDS ORDERED: INFLUENZA ADLT QUAD (36MOS+) 2017-18 VAC 0.5 ML SYR IM PRN (02:15)
[2017-08-13] MEDS ORDERED: VANCOMYCIN HCL INJ 500 MG VIAL ONE (02:16)
[2017-08-13] MEDS: VANCOMYCIN HCL INJ 500 MG VIAL PO SCH ×4 (02:28→17:06)
[2017-08-13] MEDS: POTASSIUM CHLORIDE 10 MEQ TABLET.SA PO SCH ×2 (03:13→06:27)
[2017-08-13] MEDS: METHYLPREDNISOLONE INJ 40 MG/1 ML SDV IV SCH ×3 (03:13→17:06)
[2017-08-13 06:19] LABS: ANION GAP 13 (5-19); BLOOD UREA NITROGEN 16 mg/dL (7-20); CALCIUM 8.5 mg/dL (8.4-10.2); CARBON DIOXIDE 26 mmol/L (22-30); CHLORIDE 103 mmol/L (98-107); GLUCOSE 151 mg/dL (75-110); SODIUM 141.5 mmol/L (137-145)
[2017-08-13] MEDS: FUROSEMIDE INJ/PF 20 MG/2 ML SDV IV SCH ×2 (06:27→17:06)
[2017-08-13] MEDS: HEPARIN SOD (PORCINE) 5,000 UNIT/ML 1 ML SYRINGE SUBCUT SCH ×3 (06:29→22:32)
[2017-08-13 06:44] LABS: POTASSIUM 3.9 mmol/L (3.6-5.0)
[2017-08-13 06:48] LABS: HEMATOCRIT 30.2 % (36.0-47.0); HEMOGLOBIN 10.1 g/dL (12.0-15.5); MEAN CORPUSCULAR HEMOGLOBIN 31.7 pg (27.0-33.4); MEAN CORPUSCULAR HGB CONC 33.5 g/dL (32.0-36.0); MEAN CORPUSCULAR VOLUME 95 fl (80-97); PLATELET COUNT 214 10^3/uL (150-450); RED BLOOD COUNT 3.19 10^6/uL (3.72-5.28); RED CELL DISTRIBUTION WIDTH 14.7 % (11.5-14.0); WHITE BLOOD COUNT 7.2 10^3/uL (4.0-10.5)
[2017-08-13 07:01] LABS: ABSOLUTE LYMPHOCYTES# (MANUAL) 0.2 10^3/uL (0.5-4.7); ABSOLUTE MONOCYTES # (MANUAL) 0.1 10^3/uL (0.1-1.4); ABSOLUTE NEUTROPHILS# (MANUAL) 6.9 10^3/uL (1.7-8.2); BASOPHILS % (MANUAL) 0 % (0-2); EOSINOPHILS % (MANUAL) 0 % (0-6); LYMPHOCYTES % (MANUAL) 3 % (13-45); MONOCYTES % (MANUAL) 1 % (3-13); SEGMENTED NEUTROPHILS % (MAN) 96 % (42-78); TOTAL CELLS COUNTED 100
[2017-08-13 07:03] LABS: ANISOCYTOSIS SLIGHT; HYPOCHROMASIA SLIGHT; OVALOCYTES SLIGHT; POIKILOCYTOSIS SLIGHT
[2017-08-13 07:04] LABS: PLATELET COMMENT ADEQUATE
[2017-08-13] MEDS: IPRATROPIUM/ALBUTEROL 0.5-2.5 MG/3 ML AMPUL NEB SCH ×4 (08:17→19:46)
[2017-08-13] MEDS: INSULIN LISPRO 100 UNIT/ML 3 ML VIAL SUBCUT PRN ×4 (08:55→22:32)
[2017-08-13] MEDS: GUAIFENESIN 600 MG TABLET.SA PO SCH ×2 (09:00→22:28)
[2017-08-13] MEDS: DOCUSATE SODIUM 100 MG CAPSULE PO SCH (09:01)
--- NOTE | 2017-08-13 09:41 | PDOC PROGRESS REPORT ---
Subjective Progress Note for:: 08/13/17 Subjective:: Patient relates that breathing and cough is better Review of systems All organ systems evaluated and negative except as in subjective All significant laboratory and diagnostics have been reviewed Reason For Visit: HYPOKALEMIA, HYPOMAGNESEMIA, AECOPD Physical Exam Vital Signs: Temp Pulse Resp BP Pulse Ox 97.8 F 107 H 22 H 117/61 95 08/13/17 03:22 08/13/17 03:22 08/13/17 03:22 08/13/17 03:22 08/13/17 03:22 Intake & Output 08/12/17 08/13/17 08/14/17 06:59 06:59 06:59 Intake Total 1 Balance 1 Weight 89.1 kg General appearance: PRESENT: no acute distress, cooperative, obese Head exam: PRESENT: atraumatic, normocephalic Eye exam: PRESENT: conjunctiva pink, EOMI, PERRLA Ear exam: PRESENT: normal external ear exam Mouth exam: PRESENT: moist Neck exam: PRESENT: full ROM. ABSENT: JVD, lymphadenopathy, tenderness Respiratory exam: PRESENT: wheezes - soft basilar crackles. ABSENT: tachypnea, unlabored Cardiovascular exam: PRESENT: RRR. ABSENT: diastolic murmur, systolic murmur Vascular exam: PRESENT: normal capillary refill GI/Abdominal exam: PRESENT: normal bowel sounds, soft. ABSENT: tenderness Extremities exam: PRESENT: full ROM, +1 edema Neurological exam: PRESENT: alert, oriented to person, oriented to place, oriented to time, CN II-XII grossly intact Psychiatric exam: PRESENT: other - somnolent Results Laboratory Results: 08/13/17 05:05 08/13/17 05:05 08/12/17 08/13/17 08/13/17 22:06 05:05 05:05 WBC 7.2 RBC 3.19 L Hgb 10.1 L Hct 30.2 L MCV 95 MCH 31.7 MCHC 33.5 RDW 14.7 H Plt Count 214 Seg Neutrophils % Not Reportable Lymphocytes % Not Reportable Monocytes % Not Reportable Eosinophils % Not Reportable Basophils % Not Reportable Absolute Neutrophils Not Reportable Absolute Lymphocytes Not Reportable Absolute Monocytes Not Reportable Absolute Eosinophils Not Reportable Absolute Basophils Not Reportable Carbonic Acid 1.21 HCO3/H2CO3 Ratio 19:1 ABG pH 7.38 ABG pCO2 40.2 ABG pO2 96.6 ABG HCO3 23.4 ABG O2 Saturation 97.3 ABG Base Excess -1.6 FiO2 28% Sodium 141.5 Potassium 3.9 D Chloride 103 Carbon Dioxide 26 Anion Gap 13 BUN 16 Creatinine 0.97 Est GFR ( Amer) > 60 Est GFR (Non-Af Amer) 56 L Glucose 151 H Calcium 8.5 Magnesium 2.0 08/12/17 08/13/17 22:27 05:05 Troponin I < 0.012 < 0.012 Impressions: Chest X-Ray 08/12/17 11:53 IMPRESSION: Mild left basilar atelectasis. Chest/Abdomen CTA 08/12/17 15:59 IMPRESSION: NORMAL CTA OF THE CHEST. NO PULMONARY EMBOLI. STABLE CHRONIC SCARRING IN THE RIGHT LUNG. NO ACUTE FINDINGS. Assessment & Plan - Diagnosis (1) COPD exacerbation Is this a current diagnosis for this admission?: Yes Plan: Continue current management. Improving (2) Hypokalemia Is this a current diagnosis for this admission?: Yes Plan: Resolved and to trend since on nebulizer treatment (3) Acute hypoxemic respiratory failure Is this a current diagnosis for this admission?: Yes Plan: Oxygenating well at room air. Resolved (4) Anemia Qualifiers: Anemia type: unspecified type Qualified Code(s): D64.9 - Anemia, unspecified Is this a current diagnosis for this admission?: Yes Plan: Stable (5) Diabetes Qualifiers: Diabetes mellitus type: type 2 Diabetes mellitus complication status: with hyperglycemia Diabetes mellitus buttermaker insulin use: with buttermaker use Qualified Code(s): E11.65 - Type 2 diabetes mellitus with hyperglycemia; Z79.4 - buttermaker (current) use of insulin; Z79.4 - nursing home (current) use of insulin ; Z79.4 - nursing home (current) use of insulin; Z79.4 - nursing home (current) use of insulin Plan: Continue Humalog sliding scale and bedside glucose before meals and at bedtime. (6) Hypomagnesemia Is this a current diagnosis for this admission?: Yes Plan: Resolved (7) Elevated brain natriuretic peptide (BNP) level Is this a current diagnosis for this admission?: Yes Plan: Likely due to cor pulmonale. Echocardiogram ordered (8) Cor pulmonale (chronic) Is this a current diagnosis for this admission?: Yes Plan: Continue diuresis. Echocardiogram ordered to check pulmonary pressures (9) C. difficile colitis Is this a current diagnosis for this admission?: Yes Plan: Patient has not finalize treatment for C. difficile. Off Flagyl as it may cause hallucination and continue vancomycin p.o. (10) Gout attack Qualifiers: Gout site: toe Gout etiology: unspecified cause Laterality: right Qualified Code(s): M10.9 - Gout, unspecified Is this a current diagnosis for this admission?: Yes Plan: Swelling and pain is better today. Will continue with pain management and steroids. Will consider allopurinol - Time Time Spent with patient: 15-24 minutes Medications reviewed and adjusted accordingly: Yes Anticipated discharge: Home with Homehealth Within: within 48 hours - Inpatient Certification Based on my medical assessment, after consideration of the patient's comorbidities, presenting symptoms, or acuity I expect that the services needed warrant INPATIENT care.: Yes I certify that my determination is in accordance with my understanding of Medicare's requirements for reasonable and necessary INPATIENT services [42 CFR 412.3e].: Yes Medical Necessity: Need for Nebulizer Therapy and Monitoring of Response - IV Lasix
[2017-08-13] MEDS: AZITHROMYCIN 250 MG TABLET PO SCH (11:12)
[2017-08-14] MEDS: VANCOMYCIN HCL INJ 500 MG VIAL PO SCH ×5 (00:14→23:18)
[2017-08-14] MEDS: METHYLPREDNISOLONE INJ 40 MG/1 ML SDV IV SCH (01:27)
[2017-08-14] MEDS: FUROSEMIDE INJ/PF 20 MG/2 ML SDV IV SCH ×2 (06:56→18:46)
[2017-08-14] MEDS: HEPARIN SOD (PORCINE) 5,000 UNIT/ML 1 ML SYRINGE SUBCUT SCH ×3 (06:57→22:33)
[2017-08-14] MEDS: IPRATROPIUM/ALBUTEROL 0.5-2.5 MG/3 ML AMPUL NEB SCH (08:02)
[2017-08-14] MEDS: PREDNISONE 20 MG TABLET PO SCH (09:25)
[2017-08-14] MEDS: TIOTROPIUM BROMIDE DPI 5 CAP/KIT (18 MCG/CAP) IH SCH (09:26)
[2017-08-14] MEDS: GUAIFENESIN 600 MG TABLET.SA PO SCH ×2 (09:27→22:33)
[2017-08-14] MEDS: FLUTICASONE/SALMETEROL DISKUS 500-50 MCG/DOSE IH SCH ×2 (09:27→22:34)
[2017-08-14] MEDS: AZITHROMYCIN 250 MG TABLET PO SCH (09:28)
[2017-08-14] MEDS: LISINOPRIL 5 MG TABLET PO SCH (09:28)
[2017-08-14] MEDS: DOCUSATE SODIUM 100 MG CAPSULE PO SCH (09:28)
[2017-08-14] MEDS: AMLODIPINE BESYLATE 2.5 MG TABLET PO SCH (09:29)
[2017-08-14] MEDS ORDERED: METOPROLOL SUCCINATE 25 MG TAB.SR.24H PO ONE ×2 (09:45→13:30)
[2017-08-14] MEDS ORDERED: ACETAMINOPHEN 325 MG TABLET PO PRN (12:00)
[2017-08-14] MEDS ORDERED: ONDANSETRON HCL INJ/PF 4 MG/2 ML SDV IV PRN (12:00)
[2017-08-14] MEDS: ALBUTEROL SULFATE 0.083% NEB 2.5 MG/3 ML AMPUL NEB PRN (16:53)
--- NOTE | 2017-08-14 17:05 | XCELERA REPORT ---
[address] [address] Transthoracic Echocardiogram Report Name: TRENTON MCCOY Age: 72 yrs Gender: Female : 1945 Patient Status: Inpatient Patient Location: [address] [place], [place] [address] Study Date: 08/14/2017 03:12 PM Height: 66 in Weight: 196 lb BSA: 2.0 m2 Procedure: A two-dimensional transthoracic echocardiogram with color flow and Doppler was performed. Poor quality study.Poor doppler interogation.Poor endocardial defenitin. Reason For Study: CHF History: CHF. Ordering Physician: JACEY TRAMMELL Performed By: Maru Johnson Interpretation Summary A two-dimensional transthoracic echocardiogram with color flow and Doppler was performed. Probably normal LV size.LEVF is normal.Probably no regional wall motion abnormality..Probably mild LVH. Doppler measurements suggest impaired left ventricular relaxation, which is associated with grade I/IV or mild diastolic dysfunction Not well seen to comment. No regurgitant or stenotic lesions of valves..No pericardial effusion. MMode/2D Measurements & Calculations RVDd: 3.0 cm LVIDd: 3.1 cm FS: 35.5 % Ao root diam: 1.9 cm IVSd: 1.3 cm LVIDs: 2.0 cm EDV(Teich): 36.5 ml LVPWd: 1.3 cm ESV(Teich): 12.2 ml Ao root area: 2.8 cm2 EF(Teich): 66.5 % Doppler Measurements & Calculations MV E max mellisa: MV dec slope: Ao V2 max: LV V1 max P.6 cm/sec 168.3 cm/sec 6.3 mmHg MV A max mellisa: 882.5 cm/sec2 Ao max PG: LV V1 max: 162.0 cm/sec MV dec time: 11.3 mmHg 125.3 cm/sec MV E/A: 0.87 0.16 sec PA V2 max: TR max mellisa: 91.4 cm/sec 296.0 cm/sec PA max P.3 mmHgTR max P.1 mmHg Left Ventricle Probably normal LV size.LEVF is normal.Probably no regional wall motion abnormality..Probably mild LVH. Doppler measurements suggest impaired left ventricular relaxation, which is associated with grade I/IV or mild diastolic dysfunction. Right Ventricle Not well seen to comment. Mitral Valve No regurgitant or stenotic lesions of valves..No pericardial effusion. : JACEY TRAMMELL > Susan Mishra
[2017-08-14] MEDS: INSULIN LISPRO 100 UNIT/ML 3 ML VIAL SUBCUT PRN (22:33)
[2017-08-15] MEDS: ALBUTEROL SULFATE 0.083% NEB 2.5 MG/3 ML AMPUL NEB PRN ×4 (00:23→21:00)
[2017-08-15] MEDS: FUROSEMIDE INJ/PF 20 MG/2 ML SDV IV SCH (06:28)
[2017-08-15] MEDS: HEPARIN SOD (PORCINE) 5,000 UNIT/ML 1 ML SYRINGE SUBCUT SCH ×3 (06:28→21:49)
[2017-08-15] MEDS: VANCOMYCIN HCL INJ 500 MG VIAL PO SCH ×4 (06:40→23:53)
--- NOTE | 2017-08-15 07:36 | PDOC PROGRESS REPORT ---
Subjective Progress Note for:: 08/14/17 Subjective:: Patient relates that breathing and pain in right great toe is better. Subject Scientific Research states that patient still little bit wheezy and with some tremors. There has not been any hallucinations Review of systems All organ systems evaluated and negative except as in subjective All significant laboratory and diagnostics have been reviewed Reason For Visit: HYPOKALEMIA, HYPOMAGNESEMIA, AECOPD Physical Exam Vital Signs: Temp Pulse Resp BP Pulse Ox 97.9 F 106 H 20 138/86 H 97 08/14/17 04:55 08/14/17 04:55 08/14/17 04:55 08/14/17 04:55 08/14/17 04:55 Intake & Output 08/13/17 08/14/17 08/15/17 06:59 06:59 06:59 Intake Total 1 143 Balance 1 143 Weight 89.1 kg 87.6 kg General appearance: PRESENT: no acute distress, cooperative, obese Head exam: PRESENT: atraumatic, normocephalic Eye exam: PRESENT: conjunctiva pink, EOMI, PERRLA Ear exam: PRESENT: normal external ear exam Mouth exam: PRESENT: moist Neck exam: PRESENT: full ROM. ABSENT: JVD, lymphadenopathy, tenderness, thyromegaly - Adequate movement of air with scattered wheezes Cardiovascular exam: PRESENT: RRR. ABSENT: diastolic murmur, systolic murmur Vascular exam: PRESENT: normal capillary refill GI/Abdominal exam: PRESENT: normal bowel sounds, soft. ABSENT: guarding, tenderness Extremities exam: PRESENT: full ROM, +1 edema - Tenderness and swelling to right great toe is improving Neurological exam: PRESENT: alert, awake, oriented to person, oriented to place , oriented to time, CN II-XII grossly intact Psychiatric exam: PRESENT: appropriate affect, normal mood Skin exam: PRESENT: normal color Results Laboratory Results: 08/13/17 05:05 08/13/17 05:05 08/12/17 08/13/17 22:27 05:05 Troponin I < 0.012 < 0.012 Impressions: Chest X-Ray 08/12/17 11:53 IMPRESSION: Mild left basilar atelectasis. Chest/Abdomen CTA 08/12/17 15:59 IMPRESSION: NORMAL CTA OF THE CHEST. NO PULMONARY EMBOLI. STABLE CHRONIC SCARRING IN THE RIGHT LUNG. NO ACUTE FINDINGS. Assessment & Plan - Diagnosis (1) COPD exacerbation Is this a current diagnosis for this admission?: Yes Plan: To place on Advair and Spiriva (2) Hypokalemia Is this a current diagnosis for this admission?: Yes Plan: Resolved and to trend since on nebulizer treatment (3) Acute hypoxemic respiratory failure Is this a current diagnosis for this admission?: Yes Plan: Back on oxygen. Accordingly she says that she has enough oxygen at home. Looks like she will need 2 L of O2 by nasal cannula around the clock (4) Anemia Qualifiers: Anemia type: unspecified type Qualified Code(s): D64.9 - Anemia, unspecified Is this a current diagnosis for this admission?: Yes Plan: Stable (5) Diabetes Qualifiers: Diabetes mellitus type: type 2 Diabetes mellitus complication status: with hyperglycemia Diabetes mellitus buttermaker continuous churn insulin use: with penitentiary use Qualified Code(s): E11.65 - Type 2 diabetes mellitus with hyperglycemia; Z79.4 - superintendent terminal (current) use of insulin; Z79.4 - superintendent terminal (current) use of insulin ; Z79.4 - superintendent terminal (current) use of insulin; Z79.4 - senior care (current) use of insulin Plan: Continue Humalog sliding scale and bedside glucose before meals and at bedtime. (6) Hypomagnesemia Is this a current diagnosis for this admission?: Yes Plan: Resolved (7) Elevated brain natriuretic peptide (BNP) level Is this a current diagnosis for this admission?: Yes Plan: Likely due to cor pulmonale. Echocardiogram ordered (8) Cor pulmonale (chronic) Is this a current diagnosis for this admission?: Yes Plan: Continue diuresis. Echocardiogram ordered to check pulmonary pressures (9) C. difficile colitis Is this a current diagnosis for this admission?: Yes Plan: Patient has not finalize treatment for C. difficile. Off Flagyl as it may cause hallucination and continue vancomycin p.o. (10) Gout attack Qualifiers: Gout site: toe Gout etiology: unspecified cause Laterality: right Qualified Code(s): M10.9 - Gout, unspecified Is this a current diagnosis for this admission?: Yes Plan: Swelling and pain is better today. Will continue with pain management and steroids. Will consider allopurinol (11) HTN (hypertension) Qualifiers: Hypertension type: essential hypertension Qualified Code(s): I10 - Essential (primary) hypertension Is this a current diagnosis for this admission?: Yes Plan: Start Norvasc, lisinopril and low-dose metoprolol - Time Time Spent with patient: 15-24 minutes Medications reviewed and adjusted accordingly: Yes Anticipated discharge: Home with Homehealth Within: within 48 hours - Inpatient Certification Based on my medical assessment, after consideration of the patient's comorbidities, presenting symptoms, or acuity I expect that the services needed warrant INPATIENT care.: Yes I certify that my determination is in accordance with my understanding of Medicare's requirements for reasonable and necessary INPATIENT services [42 CFR 412.3e].: Yes Medical Necessity: Need Close Monitoring Due to Risk of Patient Decompensation - IV diuresis
[2017-08-15] MEDS: DOCUSATE SODIUM 100 MG CAPSULE PO SCH (11:23)
[2017-08-15] MEDS: PREDNISONE 20 MG TABLET PO SCH (11:24)
[2017-08-15] MEDS: AZITHROMYCIN 250 MG TABLET PO SCH (11:24)
[2017-08-15] MEDS: METOPROLOL SUCCINATE 25 MG TAB.SR.24H PO SCH (11:24)
[2017-08-15] MEDS: GUAIFENESIN 600 MG TABLET.SA PO SCH ×2 (11:25→21:49)
[2017-08-15] MEDS: FLUTICASONE/SALMETEROL DISKUS 500-50 MCG/DOSE IH SCH ×2 (11:25→21:49)
[2017-08-15] MEDS: AMLODIPINE BESYLATE 2.5 MG TABLET PO SCH (11:25)
[2017-08-15] MEDS: TIOTROPIUM BROMIDE DPI 5 CAP/KIT (18 MCG/CAP) IH SCH (11:26)
[2017-08-15] MEDS: LISINOPRIL 5 MG TABLET PO SCH (11:26)
--- NOTE | 2017-08-15 14:59 | PDOC PROGRESS REPORT ---
Subjective Progress Note for:: 08/15/17 Subjective:: Patient Relates that pain in right toe continues getting better. Also does not know if she is ready to go home yet because of her breathing Review of systems All organ systems evaluated and negative except as in subjective All significant laboratory and diagnostics have been reviewed Reason For Visit: HYPOKALEMIA, HYPOMAGNESEMIA, AECOPD Physical Exam Vital Signs: Temp Pulse Resp BP Pulse Ox 98.1 F 86 16 112/66 95 08/15/17 12:10 08/15/17 12:15 08/15/17 12:15 08/15/17 12:10 08/15/17 12:15 Intake & Output 08/14/17 08/15/17 08/16/17 06:59 06:59 06:59 Intake Total 243 647 222 Balance 243 647 222 Weight 87.6 kg Results Laboratory Results: 08/13/17 05:05 08/13/17 05:05 08/12/17 08/13/17 22:27 05:05 Troponin I < 0.012 < 0.012 Impressions: Chest X-Ray 08/12/17 11:53 IMPRESSION: Mild left basilar atelectasis. Chest/Abdomen CTA 08/12/17 15:59 IMPRESSION: NORMAL CTA OF THE CHEST. NO PULMONARY EMBOLI. STABLE CHRONIC SCARRING IN THE RIGHT LUNG. NO ACUTE FINDINGS. Assessment & Plan - Diagnosis (1) COPD exacerbation Is this a current diagnosis for this admission?: Yes Plan: Will add Mucomyst and will administer a Solu-Medrol 125 mg one-time dose to see if can improve wheezing and congestion otherwise continue Advair and Spiriva (2) Hypokalemia Is this a current diagnosis for this admission?: Yes Plan: Resolved and to trend since on nebulizer treatment (3) Acute hypoxemic respiratory failure Is this a current diagnosis for this admission?: Yes Plan: Back on oxygen. Accordingly she says that she has enough oxygen at home. Looks like she will need 2 L of O2 by nasal cannula around the clock (4) Anemia Qualifiers: Anemia type: unspecified type Qualified Code(s): D64.9 - Anemia, unspecified Is this a current diagnosis for this admission?: Yes Plan: Trend hemoglobin since there was a drop when compared to admission which likely was dilutional in nature (5) Diabetes Qualifiers: Diabetes mellitus type: type 2 Diabetes mellitus complication status: with hyperglycemia Diabetes mellitus mcfp insulin use: with mcfp use Qualified Code(s): E11.65 - Type 2 diabetes mellitus with hyperglycemia; Z79.4 - senior care (current) use of insulin; 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 (6) Hypomagnesemia Is this a current diagnosis for this admission?: Yes Plan: Resolved (7) Elevated brain natriuretic peptide (BNP) level Is this a current diagnosis for this admission?: Yes Plan: Due to diastolic dysfunction and cor pulmonale (8) Cor pulmonale (chronic) Is this a current diagnosis for this admission?: Yes Plan: Improved. To place on oral diuretic (9) C. difficile colitis Is this a current diagnosis for this admission?: Yes Plan: Patient did not finalize treatment for C. difficile. Off Flagyl as it may cause hallucination and continue vancomycin p.o. (10) Gout attack Qualifiers: Gout site: toe Gout etiology: unspecified cause Laterality: right Qualified Code(s): M10.9 - Gout, unspecified Is this a current diagnosis for this admission?: Yes Plan: Swelling and pain is better. Will continue with pain management and steroids. Consider allopurinol to be started as outpatient (11) HTN (hypertension) Qualifiers: Hypertension type: essential hypertension Qualified Code(s): I10 - Essential (primary) hypertension Is this a current diagnosis for this admission?: Yes Plan: Continue Norvasc, lisinopril and low-dose metoprolol (12) Diastolic CHF Qualifiers: Congestive heart failure chronicity: acute Qualified Code(s): I50.31 - Acute diastolic (congestive) heart failure Is this a current diagnosis for this admission?: Yes Plan: Improving and compounded with cor pulmonale - Time Time Spent with patient: 15-24 minutes Medications reviewed and adjusted accordingly: Yes Anticipated discharge: Home with Homehealth Within: within 24 hours - Inpatient Certification Based on my medical assessment, after consideration of the patient's comorbidities, presenting symptoms, or acuity I expect that the services needed warrant INPATIENT care.: Yes I certify that my determination is in accordance with my understanding of Medicare's requirements for reasonable and necessary INPATIENT services [42 CFR 412.3e].: Yes Medical Necessity: Need Close Monitoring Due to Risk of Patient Decompensation, Need for Nebulizer Therapy and Monitoring of Response
[2017-08-15] MEDS ORDERED: METHYLPREDNISOLONE INJ 125 MG/2 ML SDV IV ONE (15:30)
[2017-08-15] MEDS ORDERED: FUROSEMIDE 20 MG TABLET PO ONE (15:30)
[2017-08-15] MEDS ORDERED: ACETYLCYSTEINE 10% NEB 400 MG/4 ML VIAL NEB ONE (16:00)
[2017-08-15 18:17] LABS: ARTERIAL BLOOD H2CO3 1.63 mmol/L (1.05-1.35); ARTERIAL BLOOD O2 SATURATION 94.8 % (94-98); ARTERIAL BLOOD PO2 74.8 mmHg (80-100); ARTERIAL BLOOD TOTAL CO2 34.7 mmol/L (21-25)
[2017-08-15 18:18] LABS: ARTERIAL BLOOD FIO2 3L
[2017-08-15] MEDS: ACETYLCYSTEINE 10% NEB 400 MG/4 ML VIAL NEB SCH (21:00)
[2017-08-15] MEDS: INSULIN LISPRO 100 UNIT/ML 3 ML VIAL SUBCUT PRN (22:13)
[2017-08-16] MEDS: ACETYLCYSTEINE 10% NEB 400 MG/4 ML VIAL NEB SCH ×3 (02:08→14:32)
[2017-08-16] MEDS: ALBUTEROL SULFATE 0.083% NEB 2.5 MG/3 ML AMPUL NEB PRN ×3 (02:08→14:32)
[2017-08-16 05:00] LABS: ABSOLUTE LYMPHOCYTES (AUTO) 0.6 10^3/uL (0.5-4.7); ABSOLUTE MONOCYTES (AUTO) 0.3 10^3/uL (0.1-1.4); ABSOLUTE NEUT (AUTO) 4.6 10^3/uL (1.7-8.2); BASOPHILS % (AUTO) 0.2 % (0-2); HEMATOCRIT 32.5 % (36.0-47.0); HEMOGLOBIN 10.8 g/dL (12.0-15.5); LYMPHOCYTES % (AUTO) 11.2 % (13-45); MEAN CORPUSCULAR HEMOGLOBIN 31.5 pg (27.0-33.4); MEAN CORPUSCULAR HGB CONC 33.1 g/dL (32.0-36.0); MEAN CORPUSCULAR VOLUME 95 fl (80-97); MONOCYTES % (AUTO) 6.1 % (3-13); PLATELET COUNT 213 10^3/uL (150-450); RED BLOOD COUNT 3.42 10^6/uL (3.72-5.28); RED CELL DISTRIBUTION WIDTH 14.9 % (11.5-14.0); SEGMENTED NEUTROPHILS % (AUTO) 82.5 % (42-78); TOTAL CELLS COUNTED % (AUTO) 100 %; WHITE BLOOD COUNT 5.6 10^3/uL (4.0-10.5)
[2017-08-16 05:24] LABS: ANION GAP 5 (5-19); BLOOD UREA NITROGEN 25 mg/dL (7-20); CALCIUM 9.1 mg/dL (8.4-10.2); CARBON DIOXIDE 35 mmol/L (22-30); CHLORIDE 102 mmol/L (98-107); GLUCOSE 125 mg/dL (75-110); POTASSIUM 4.6 mmol/L (3.6-5.0); SODIUM 141.7 mmol/L (137-145)
[2017-08-16] MEDS: VANCOMYCIN HCL INJ 500 MG VIAL PO SCH ×2 (06:49→11:52)
[2017-08-16] MEDS: HEPARIN SOD (PORCINE) 5,000 UNIT/ML 1 ML SYRINGE SUBCUT SCH ×2 (06:51→15:37)
[2017-08-16] MEDS ORDERED: FUROSEMIDE 20 MG TABLET PO SCH (10:00)
[2017-08-16] MEDS: PREDNISONE 20 MG TABLET PO SCH (11:50)
[2017-08-16] MEDS: AZITHROMYCIN 250 MG TABLET PO SCH (11:50)
[2017-08-16] MEDS: LISINOPRIL 5 MG TABLET PO SCH (11:50)
[2017-08-16] MEDS: METOPROLOL SUCCINATE 25 MG TAB.SR.24H PO SCH (11:50)
[2017-08-16] MEDS: GUAIFENESIN 600 MG TABLET.SA PO SCH (11:51)
[2017-08-16] MEDS: DOCUSATE SODIUM 100 MG CAPSULE PO SCH (11:51)
[2017-08-16] MEDS: AMLODIPINE BESYLATE 2.5 MG TABLET PO SCH (11:51)
[2017-08-16] MEDS: TIOTROPIUM BROMIDE DPI 5 CAP/KIT (18 MCG/CAP) IH SCH (11:52)
[2017-08-16] MEDS: FLUTICASONE/SALMETEROL DISKUS 500-50 MCG/DOSE IH SCH (11:52)
--- NOTE | 2017-08-16 15:04 | PDOC DISCHARGE SUMMARY ---
General - Admit/Disc Date/PCP Admission Date/Primary Care Provider: 08/12/17 17:40 MERCEDES STRANGE, Discharge Date: 08/16/17 - Discharge Diagnosis (1) COPD exacerbation Is this a current diagnosis for this admission?: Yes (2) Cor pulmonale (chronic) Is this a current diagnosis for this admission?: Yes (3) Elevated brain natriuretic peptide (BNP) level Is this a current diagnosis for this admission?: Yes (4) Gout attack Is this a current diagnosis for this admission?: Yes (5) HTN (hypertension) Is this a current diagnosis for this admission?: Yes (6) Hypokalemia Is this a current diagnosis for this admission?: Yes (7) Hypomagnesemia Is this a current diagnosis for this admission?: Yes (8) Acute hypoxemic respiratory failure Is this a current diagnosis for this admission?: Yes (9) C. difficile colitis Is this a current diagnosis for this admission?: Yes - Additional Information Resuscitation Status: Full Code Discharge Diet: As Tolerated Discharge Activity: Activity As Tolerated Prescriptions: Amlodipine Besylate [Norvasc 2.5 mg Tablet] 2.5 mg PO DAILY #30 tablet Furosemide [Lasix 20 mg Tablet] 20 mg PO BID 30 Days #60 tablet Guaifenesin [Mucinex Sr 600 mg Tablet.sa] 1,200 mg PO Q12 10 Days #20 tablet.sa Lisinopril [Prinivil 5 mg Tablet] 5 mg PO DAILY 30 Days #30 tablet Prednisone [Deltasone 20 mg Tablet] 40 mg PO DAILY 12 Days #12 tablet Home Medications: Allopurinol [Zyloprim 100 mg Tablet] 100 mg PO DAILY 08/12/17 Aspirin [Aspirin EC] 81 mg PO DAILY 08/12/17 Levothyroxine Sodium [Synthroid] 88 mcg PO Q6AM 08/12/17 Metformin HCl [Metformin HCl ER] 500 mg PO DAILY 08/12/17 Metronidazole 500 mg PO Q8 08/12/17 Pantoprazole Sodium 40 mg PO DAILY 08/12/17 Sertraline HCl 50 mg PO QAM 08/12/17 Fluticasone/Salmeterol [Advair 500-50 Diskus 14 Dose/Diskus] 1 inh IH Q12 Melatonin/Pyridoxine HCl (B6) [Melatonin 3 mg Tablet] 1 each PO QHS 08/13/17 Tiotropium [place] [Spiriva Handihaler 18 mcg/dose (30 Dose)] 1 cap IH DAILY Acetaminophen [Tylenol 325 mg Tablet] 325 mg PO Q4HP PRN tablet 08/16/17 Albuterol Sulfate [Ventolin 0.083% Neb 2.5 mg/3 mL Ampul] 2.5 mg NEB RTQ2HP PRN vial.neb 08/16/17 Amlodipine Besylate [Norvasc 2.5 mg Tablet] 2.5 mg PO DAILY #30 tablet 08/16/17 Furosemide [Lasix 20 mg Tablet] 20 mg PO BID 30 Days #60 tablet 08/16/17 Guaifenesin [Mucinex Sr 600 mg Tablet.sa] 1,200 mg PO Q12 10 Days #20 tablet.sa 08/16/17 Lisinopril [Prinivil 5 mg Tablet] 5 mg PO DAILY 30 Days #30 tablet 08/16/17 Prednisone [Deltasone 20 mg Tablet] 40 mg PO DAILY 12 Days #12 tablet 08/16/17 History of Present Illness Patient complains of: confusion/ shortness of breath History of Present Illness: TRENTON MCCOY is a 71 year old female presents to ED accompanied by geriatric nurse assistant who is assisting in providing information. Accordingly patient was discharged recently from this institution when she was treated for C. difficile. She states that patient was not doing well. She has not finalized the course of antibiotics yet. Customer Development Manager complains of patient seing people that are not in the room. Patient also had been having shortness of breath and having productive cough of thick phlegm. Patient complains of pain in her right great toe. Patient had been getting nebulizer treatments every 6 hours. Diarrhea has receded. Accordingly there is no fever or chills. During the course of evaluation in emergency room both potassium and magnesium were low critically and prompted to consult hospitalist service for further management needs my attention. Hospital Course Hospital Course: (1) COPD exacerbation Is this a current diagnosis for this admission?: Yes Plan: Patient was treated with steroids, Spiriva, Advair, nebs and Zithromax She improved greatly patient will be discharged on a steroid taper (2) Hypokalemia Is this a current diagnosis for this admission?: Yes Plan: Resolved (3) Acute hypoxemic respiratory failure Is this a current diagnosis for this admission?: Yes Plan: Improved patient was discharged with nasal O2 (4) Anemia Qualifiers: Anemia type: unspecified type Qualified Code(s): D64.9 - Anemia, unspecified Is this a current diagnosis for this admission?: Yes Plan: Stable (5) Diabetes Qualifiers: Diabetes mellitus type: type 2 Diabetes mellitus complication status: with hyperglycemia Diabetes mellitus shelter 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 (6) Hypomagnesemia Is this a current diagnosis for this admission?: Yes Plan: Resolved (7) Elevated brain natriuretic peptide (BNP) level Is this a current diagnosis for this admission?: Yes Plan: Secondary to acute on chronic diastolic CHF and cor pulmonale CHF improved; patient was discharged on Lasix (8) Cor pulmonale (chronic) Is this a current diagnosis for this admission?: Yes Plan: Improved. To place on oral diuretic (9) C. difficile colitis Is this a current diagnosis for this admission?: Yes Plan: Repeat C. difficile toxin was negative; Patient had completed a course of antibiotics for C. difficile (10) Gout attack Qualifiers: Gout site: toe Gout etiology: unspecified cause Laterality: right Qualified Code(s): M10.9 - Gout, unspecified Is this a current diagnosis for this admission?: Yes Plan: Swelling and pain is better. Will continue with pain management and steroids. Consider allopurinol to be started as outpatient (11) HTN (hypertension) Qualifiers: Hypertension type: essential hypertension Qualified Code(s): I10 - Essential (primary) hypertension Is this a current diagnosis for this admission?: Yes Plan: Blood pressure was stable at discharge Physical Exam Vital Signs: Temp Pulse Resp BP Pulse Ox 98.0 F 82 16 129/69 H 98 08/16/17 12:19 08/16/17 12:19 08/16/17 12:19 08/16/17 12:19 08/16/17 12:19 Intake & Output 08/15/17 08/16/17 08/17/17 00:59 00:59 00:59 Intake Total 597 1034 622 Output Total 0 Balance 597 1034 622 Weight 87.6 kg 90.5 kg General appearance: PRESENT: no acute distress, well-developed, well-nourished Head exam: PRESENT: atraumatic, normocephalic Eye exam: PRESENT: conjunctiva pink, EOMI, PERRLA. ABSENT: scleral icterus Ear exam: PRESENT: normal external ear exam Mouth exam: PRESENT: moist, tongue midline Neck exam: ABSENT: carotid bruit, JVD, lymphadenopathy, thyromegaly Respiratory exam: PRESENT: decreased breath sounds, wheezes. ABSENT: rales, rhonchi Cardiovascular exam: PRESENT: RRR. ABSENT: diastolic murmur, rubs, systolic murmur Pulses: PRESENT: normal dorsalis pedis pul Vascular exam: PRESENT: normal capillary refill GI/Abdominal exam: PRESENT: normal bowel sounds, soft. ABSENT: distended, guarding, mass, organolmegaly, rebound, tenderness Rectal exam: PRESENT: deferred Extremities exam: PRESENT: full ROM. ABSENT: calf tenderness, clubbing, pedal edema Neurological exam: PRESENT: alert, awake, oriented to person, oriented to place , oriented to time, oriented to situation, CN II-XII grossly intact. ABSENT: motor sensory deficit Psychiatric exam: PRESENT: appropriate affect, normal mood. ABSENT: homicidal ideation, suicidal ideation Skin exam: PRESENT: dry, intact, warm. ABSENT: cyanosis, rash Results Laboratory Results: 08/16/17 04:12 08/16/17 04:12 08/15/17 08/15/17 08/16/17 16:35 17:45 04:12 WBC 5.6 RBC 3.42 L Hgb 10.8 L Hct 32.5 L MCV 95 MCH 31.5 MCHC 33.1 RDW 14.9 H Plt Count 213 Seg Neutrophils % 82.5 H Lymphocytes % 11.2 L Monocytes % 6.1 Eosinophils % 0.0 Basophils % 0.2 Absolute Neutrophils 4.6 Absolute Lymphocytes 0.6 Absolute Monocytes 0.3 Absolute Eosinophils 0.0 Absolute Basophils 0.0 Carbonic Acid Cancelled 1.63 H HCO3/H2CO3 Ratio Cancelled 20:1 ABG pH Cancelled 7.40 ABG pCO2 Cancelled 54.0 H ABG pO2 Cancelled 74.8 L ABG HCO3 Cancelled 33.0 H ABG O2 Saturation Cancelled 94.8 ABG Base Excess Cancelled 7.0 FiO2 Cancelled 3L Sodium Potassium Chloride Carbon Dioxide Anion Gap BUN Creatinine Est GFR ( Amer) Est GFR (Non-Af Amer) Glucose Calcium Magnesium 08/16/17 04:12 WBC RBC Hgb Hct MCV MCH MCHC RDW Plt Count Seg Neutrophils % Lymphocytes % Monocytes % Eosinophils % Basophils % Absolute Neutrophils Absolute Lymphocytes Absolute Monocytes Absolute Eosinophils Absolute Basophils Carbonic Acid HCO3/H2CO3 Ratio ABG pH ABG pCO2 ABG pO2 ABG HCO3 ABG O2 Saturation ABG Base Excess FiO2 Sodium 141.7 Potassium 4.6 Chloride 102 Carbon Dioxide 35 H Anion Gap 5 BUN 25 H Creatinine 0.92 Est GFR ( Amer) > 60 Est GFR (Non-Af Amer) > 60 Glucose 125 H Calcium 9.1 Magnesium 2.0 08/12/17 08/13/17 22:27 05:05 Troponin I < 0.012 < 0.012 Impressions: Chest X-Ray 08/12/17 11:53 IMPRESSION: Mild left basilar atelectasis. Chest/Abdomen CTA 08/12/17 15:59 IMPRESSION: NORMAL CTA OF THE CHEST. NO PULMONARY EMBOLI. STABLE CHRONIC SCARRING IN THE RIGHT LUNG. NO ACUTE FINDINGS. Plan Discharge Plan: Discharge home to follow-up with primary care physician in 1 week Time Spent: Greater than 30 Minutes
[2017-08-16 15:07] VITALS: BP 138/72
== END 2017-08-16 15:41 | disposition home health service (06) | DRG 190 ==
LOC: ER 11:42 → EH 17:40 → 3N 08-13 01:09
PROVIDERS: ADMIT Emergency Medicine; ATTEND Emergency Medicine
PROC: 3E0F73Z Introduction of Anti-inflammatory into Respiratory Tract, Via Natural or Artificial Opening (ICD-10-PCS; principal; 2017-08-12)
PROC: 3E0234Z Introduction of Serum, Toxoid and Vaccine into Muscle, Percutaneous Approach (ICD-10-PCS; 2017-08-16)
DX: J44.1 Chronic obstructive pulmonary disease with (acute) exacerbation (principal); J96.01 Acute respiratory failure with hypoxia; I50.31 Acute diastolic (congestive) heart failure; A04.72 Enterocolitis due to Clostridium difficile, not specified as recurrent; C34.90 Malignant neoplasm of unspecified part of unspecified bronchus or lung; C79.31 Secondary malignant neoplasm of brain; E87.6 Hypokalemia; E83.42 Hypomagnesemia; I27.81 Cor pulmonale (chronic); D64.9 Anemia, unspecified; E11.65 Type 2 diabetes mellitus with hyperglycemia; E03.9 Hypothyroidism, unspecified; I25.10 Atherosclerotic heart disease of native coronary artery without angina pectoris; M19.90 Unspecified osteoarthritis, unspecified site; K21.9 Gastro-esophageal reflux disease without esophagitis; F32.9 Major depressive disorder, single episode, unspecified; M10.071 Idiopathic gout, right ankle and foot; I11.0 Hypertensive heart disease with heart failure; I25.2 Old myocardial infarction; Z23 Encounter for immunization; Z79.899 Other long term (current) drug therapy; Z79.82 Long term (current) use of aspirin; Z79.4 Long term (current) use of insulin; Z99.81 Dependence on supplemental oxygen; Z90.49 Acquired absence of other specified parts of digestive tract; Z88.1 Allergy status to other antibiotic agents; Z91.19 Patient's noncompliance with other medical treatment and regimen; Z88.3 Allergy status to other anti-infective agents; Z80.1 Family history of malignant neoplasm of trachea, bronchus and lung
CPT/HCPCS: 36415; 36600; 71046; 71275; 80048; 80053; 81001; 82550; 82553; 82803; 82962; 83735; 83880; 84484; 84550; 85025; 85652; 87493; 87804; 90686; 93005; 93010; 93306; 94640; 96361; 96374; 99285; G8978-GP; G8979-GP; J1644; J1815; J1940; J2920; J2930; J3370; J3475; J3480; J3490; J7030; J7512; J7620

== ENCOUNTER 2017-08-30 21:59 | Inpatient (IN) | payer MEDICARE, OTHER ==
[2017-08-30] MEDS ORDERED: IPRATROPIUM/ALBUTEROL 0.5-2.5 MG/3 ML AMPUL NEB ONE (22:26)
--- NOTE | 2017-08-30 22:29 | ER Document Report ---
ED General - General Chief Complaint: Breathing Difficulty Stated Complaint: DIFFICULTY BREATHING Time Seen by Provider: 08/30/17 22:07 Notes: Patient is a 72-year-old female presents with complaint of wheezing and some difficulty breathing and coughing. She says last night she had similar symptoms called ambulance and they give her breathing treatment she felt better and therefore stayed home. Tonight she got much worse and therefore had to come to the ER. She wears 2 L of oxygen at home. She says that she usually does well not but tonight she started having wheezing and was not improving. She got albuterol and Atrovent treatment and amylase also well as Solu-Medrol 125 mg. She says that she has had limited chest pain but says it is just like her chronic chest pain and again is unchanged and no different than what she has had over the course of the last 2 years. No vomiting. No diarrhea. No abdominal pain. No other complaints at this time. TRAVEL OUTSIDE OF THE [place] IN LAST 30 DAYS: No - Related Data Allergies/Adverse Reactions: amoxicillin [Amoxicillin] Adverse Reaction (Verified 07/26/17 11:39) visual hallucinations erythromycin base [Erythromycin Base] Adverse Reaction (Verified 07/26/17 11:39) visual hallucinations Potassium Clavulanate * [From Augmentin] Adverse Reaction (Verified 07/26/17 11: 39) visual hallucinations Past Medical History - Social History Smoking Status: Former Smoker Frequency of alcohol use: None Drug Abuse: None Family History: Malignancy - Lung cancer - Past Medical History Cardiac Medical History: Reports: Hx Congestive Heart Failure, Hx Coronary Artery Disease, Hx Heart Attack, Hx Hypertension Denies: Hx DVT, Hx Hypercholesterolemia, Hx Pulmonary Embolism Pulmonary Medical History: Reports: Hx Asthma, Hx Bronchitis, Hx COPD - O2 dependent at night and as needed during the day, Hx Pneumonia Denies: Hx Sleep Apnea, Hx Tuberculosis Neurological Medical History: Denies: Hx Seizures Endocrine Medical History: Reports: Hx Hypothyroidism. Denies: Hx Diabetes Mellitus Type 1, Hx Diabetes Mellitus Type 2, Hx Hyperthyroidism Renal/ Medical History: Denies: Hx End Stage Renal Disease, Hx Kidney Stones, Hx Peritoneal Dialysis Malignancy Medical History: Reports: Hx Brain Cancer - Lung cancer with brain metastases, 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 GI Medical History: Reports: Hx Gastroesophageal Reflux Disease. Denies: Hx Cirrhosis, Hx Hepatitis, Hx Ulcer Musculoskeltal Medical History: Reports Hx Arthritis, Denies Hx Multiple Sclerosis, Reports Hx Musculoskeletal Deformity, Reports Hx Musculoskeletal Trauma Psychiatric Medical History: Reports: Hx Depression Denies: Hx Bipolar Disorder, Hx Schizophrenia Infectious Medical History: Reports: Hx C-Diff. Denies: Hx Hepatitis Past Surgical History: Reports: Hx Cholecystectomy, Hx Orthopedic Surgery - Foot surgery - Immunizations Hx Diphtheria, Pertussis, Tetanus Vaccination: Yes Hx Pneumococcal Vaccination: 08/30/12 Review of Systems - Review of Systems Notes: My Normal Review Basic REVIEW OF SYSTEMS: CONSTITUTIONAL : Denies fever, chills, or sweats. Denies recent illness. EENT: Denies eye, ear, throat, or mouth pain or symptoms. Denies nasal or sinus congestion. CARDIOVASCULAR: Chronic chest pain which is unchanged. RESPIRATORY: Coughing and wheezing. Difficulty breathing. GASTROINTESTINAL: Denies abdominal pain. Denies nausea, vomiting, or diarrhea. Denies constipation. Last BM: GENITOURINARY: Denies difficulty urinating, painful urination, burning, frequency, or blood in urine. MUSCULOSKELETAL: Denies neck or back pain or joint pain or swelling. SKIN: Denies rash or skin lesions. NEUROLOGICAL: Denies altered mental status or loss of consciousness. Denies headache. Denies weakness or paralysis or loss of use of either side. Denies problems with gait or speech. Denies sensory or motor loss. ALL OTHER SYSTEMS REVIEWED AND NEGATIVE. Physical Exam - Vital signs Vitals: Temp 98.5 F 08/30/17 22:10 - Notes Notes: General Appearance: Well nourished, alert, cooperative, no acute distress, no obvious discomfort. Well-appearing. Vitals: reviewed, See vital signs table. Head: no swelling or tenderness to the head Eyes: PERRL, EOMI, Conjuctiva clear Mouth: No decreasd moisture Lungs: Diffuse wheezing and rhonchi. Fair air exchange. Heart: Tachycardic rate, Regular rythm, No murmur, no rub Abdomen: Normal BS, soft, No rigidity, No abdominal tenderness, No guarding, no rebound, no abdominal masses, no organomegaly Extremities: strength 5/5 in all extremities, good pulses in all extremities, no swelling or tenderness in the extremities, no edema. Skin: warm, dry, appropriate color, no rash Neuro: speech clear, oriented x 3, normal affect, responds appropriately to questions. Course - Vital Signs Vital signs: Temp Pulse Resp BP Pulse Ox 98.5 F 21 H 103/57 L 97 08/30/17 22:10 08/30/17 23:00 08/30/17 23:00 08/30/17 23:00 - Laboratory Result Diagrams: 08/30/17 22:15 08/30/17 22:15 Laboratory results interpreted by me: 08/30/17 08/30/17 08/30/17 22:15 22:15 22:15 WBC 3.7 L RBC 3.15 L Hgb 10.1 L Hct 30.4 L RDW 15.4 H Plt Count 149 L VBG pCO2 63.8 H VBG HCO3 33.1 H Carbon Dioxide 34 H Est GFR (Non-Af Amer) 53 L Glucose 144 H Total Protein 5.3 L Albumin 3.2 L - EKG Interpretation by Me Additional EKG results interpreted by me: 08/30/17 23:04 EKG is reviewed and interpreted by me. EKG shows sinus tachycardia with rate of [address] segment elevation or depression. She does have evidence of a right bundle branch block which is unchanged comparison to previous EKG from [facility] 2017. MI interval is within normal range. QRS duration and QTc intervals are prolonged. She does have a lot of baseline artifact in leads I and to make them difficult to interpret. I will obtain a repeat EKG. 08/30/17 23:43 EKG #2 is reviewed and interpreted by me. EKG shows sinus tachycardia with a rate of [address] segment elevation or depression. Patient has a right bundle branch block which again is unchanged comparison to her old EKG. MI interval is withing normal range, QRS duration and QTc interval is prolonged Discharge - Discharge Clinical Impression: Elevated troponin COPD (chronic obstructive pulmonary disease) Qualifiers: COPD type: chronic bronchitis Chronic bronchitis type: simple Qualified Code(s) : J41.0 - Simple chronic bronchitis Condition: Stable Disposition: ADMITTED OBSERVATION Admitting Provider: Hospitalist Unit Admitted: Telemetry
[2017-08-30 22:33] LABS: ABSOLUTE EOSINOPHILS # (AUTO) 0.1 10^3/uL (0.0-0.6); ABSOLUTE LYMPHOCYTES (AUTO) 0.7 10^3/uL (0.5-4.7); ABSOLUTE MONOCYTES (AUTO) 0.4 10^3/uL (0.1-1.4); ABSOLUTE NEUT (AUTO) 2.6 10^3/uL (1.7-8.2); BASOPHILS % (AUTO) 0.7 % (0-2); EOSINOPHILS % (AUTO) 1.8 % (0-6); HEMATOCRIT 30.4 % (36.0-47.0); HEMOGLOBIN 10.1 g/dL (12.0-15.5); LYMPHOCYTES % (AUTO) 18.9 % (13-45); MEAN CORPUSCULAR HEMOGLOBIN 32.1 pg (27.0-33.4); MEAN CORPUSCULAR HGB CONC 33.4 g/dL (32.0-36.0); MEAN CORPUSCULAR VOLUME 96 fl (80-97); MONOCYTES % (AUTO) 9.8 % (3-13); PLATELET COUNT 149 10^3/uL (150-450); RED BLOOD COUNT 3.15 10^6/uL (3.72-5.28); RED CELL DISTRIBUTION WIDTH 15.4 % (11.5-14.0); SEGMENTED NEUTROPHILS % (AUTO) 68.8 % (42-78); TOTAL CELLS COUNTED % (AUTO) 100 %; VENOUS BLOOD BASE EXCESS 4.8 mmol/L; VENOUS BLOOD HCO3 33.1 mmol/L (20-32); VENOUS BLOOD PCO2 63.8 mmHg (35-63); VENOUS BLOOD PH 7.33 (7.30-7.42); WHITE BLOOD COUNT 3.7 10^3/uL (4.0-10.5)
[2017-08-30] MEDS: MAGNESIUM SULFATE/D5W 1 GM/100 ML RTUPB IV SCH ×2 (22:34→23:29)
[2017-08-30 22:47] LABS: ALANINE AMINOTRANSFERASE 30 U/L (9-52); ALBUMIN 3.2 g/dL (3.5-5.0); ALKALINE PHOSPHATASE 53 U/L (38-126); ANION GAP 5 (5-19); ASPARTATE AMINO TRANSFERASE 27 U/L (14-36); BILIRUBIN,DIRECT 0.2 mg/dL (0.0-0.4); BILIRUBIN,TOTAL 0.2 mg/dL (0.2-1.3); BLOOD UREA NITROGEN 18 mg/dL (7-20); CALCIUM 8.6 mg/dL (8.4-10.2); CARBON DIOXIDE 34 mmol/L (22-30); CHLORIDE 100 mmol/L (98-107); GLUCOSE 144 mg/dL (75-110); POTASSIUM 3.7 mmol/L (3.6-5.0); SODIUM 139.2 mmol/L (137-145); TOTAL PROTEIN 5.3 g/dL (6.3-8.2)
--- NOTE | 2017-08-30 22:55 | RADIOLOGY REPORT (SQ) ---
EXAM DESCRIPTION: CHEST SINGLE VIEW COMPLETED DATE/TIME: 08/30/2017 10:36 pm REASON FOR STUDY: cough COMPARISON: Chest x-ray and CT angiogram chest 08/12/2017 EXAM PARAMETERS: NUMBER OF VIEWS: One view. TECHNIQUE: Single frontal radiographic view of the chest acquired. RADIATION DOSE: NA LIMITATIONS: None. FINDINGS: LUNGS AND PLEURA: Subsegmental atelectasis at the left lung base. No consolidation, pneu mothorax or pleural effusion. MEDIASTINUM AND HILAR STRUCTURES: Scarring at the right hilum. HEART AND VASCULAR STRUCTURES: Heart normal in size. Normal vasculature. BONES: No acute findings. HARDWARE: None in the chest. IMPRESSION: Subsegmental atelectasis at the left lung base. TECHNICAL DOCUMENTATION: JOB ID: [id number] All Rights Reserved
[2017-08-30] MEDS ORDERED: ALBUTEROL SULFATE 0.083% NEB 2.5 MG/3 ML AMPUL NEB ONE (23:55)
[2017-08-31] MEDS ORDERED: IPRATROPIUM/ALBUTEROL 0.5-2.5 MG/3 ML AMPUL NEB PRN (00:03)
[2017-08-31] MEDS ORDERED: AZITHROMYCIN 500 MG in DEXTROSE 5%-WATER 250 ML IV ONE (01:00)
[2017-08-31] MEDS ORDERED: NALOXONE HCL INJ 2 MG/2 ML DISP.SYRIN ONE (01:02)
[2017-08-31] MEDS: IPRATROPIUM/ALBUTEROL 0.5-2.5 MG/3 ML AMPUL NEB SCH ×4 (02:17→20:05)
[2017-08-31] MEDS ORDERED: AZITHROMYCIN INJ 500 MG VIAL IV ONE (02:29)
[2017-08-31] MEDS ORDERED: DOXYCYCLINE HYCLATE 100 MG TABLET PO ONE ×2 (03:00→08:00)
[2017-08-31] MEDS ORDERED: DOXYCYCLINE HYCLATE 100 MG TABLET PO SCH (03:00)
--- NOTE | 2017-08-31 05:59 | PDOC H&P ---
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 Patient is a poor historian unable to provide meaningful history. Workup reveals tachypnea, hypoxia, chronic respiratory failure, exam reveals rhonchi. She receives albuterol and Atrovent and referred to the hospitalist for admission. Past Medical History Cardiac Medical History: Reports: Congestive Heart Failure, Coronary Artery Disease, Myocardial Infarction, Hypertension Denies: DVT, Hyperlipidema, Pulmonary Embolism Pulmonary Medical History: Reports: Asthma, Bronchitis, Chronic Obstructive Pulmonary Disease (COPD) - O2 dependent at night and as needed during the day, Pneumonia Denies: Sleep Apnea, Tuberculosis Neurological Medical History: Denies: Seizures Endocrine Medical History: Reports: Hypothyroidism Denies: Diabetes Mellitus Type 1, Diabetes Mellitus Type 2, Hyperthyroidism Renal/ Medical History: Denies: End Stage Renal Disease Malignancy Medical History: Reports: Brain Cancer - Lung cancer with brain metastases, 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 GI Medical History: Reports: Gastroesophageal Reflux Disease Denies: Cirrhosis, Hepatitis Musculoskeltal Medical History: Reports: Arthritis Psychiatric Medical History: Reports: Dementia, Depression Denies: Bipolar Disorder Hematology: Reports: Anemia, Bleeding Tendencies Infectious Medical History: Reports: Clostridium Difficile Past Surgical History Past Surgical History: Reports: Cholecystectomy, Orthopedic Surgery - Foot surgery Social History Information Source: [facility] Personnel, [facility] Records Lives with: Alone Smoking Status: Former Smoker Frequency of Alcohol Use: None Hx Recreational Drug Use: No Drugs: None Hx Prescription Drug Abuse: No - Advance Directive Resuscitation Status: Full Code Family History Family History: COPD, Malignancy - Lung cancer Parental Family History Reviewed: Yes Children Family History Reviewed: Yes Sibling(s) Family History Reviewed.: Yes Medication/Allergy Home Medications: Allopurinol [Zyloprim 100 mg Tablet] 100 mg PO DAILY 08/12/17 Aspirin [Aspirin EC] 81 mg PO DAILY 08/12/17 Levothyroxine Sodium [Synthroid] 88 mcg PO Q6AM 08/12/17 Metformin HCl [Metformin HCl ER] 500 mg PO DAILY 08/12/17 Metronidazole 500 mg PO Q8 08/12/17 Pantoprazole Sodium 40 mg PO DAILY 08/12/17 Sertraline HCl 50 mg PO QAM 08/12/17 Fluticasone/Salmeterol [Advair 500-50 Diskus 14 Dose/Diskus] 1 inh IH Q12 Melatonin/Pyridoxine HCl (B6) [Melatonin 3 mg Tablet] 1 each PO QHS 08/13/17 Tiotropium [place] [Spiriva Handihaler 18 mcg/dose (30 Dose)] 1 cap IH DAILY Acetaminophen [Tylenol 325 mg Tablet] 325 mg PO Q4HP PRN tablet 08/16/17 Albuterol Sulfate [Ventolin 0.083% Neb 2.5 mg/3 mL Ampul] 2.5 mg NEB RTQ2HP PRN vial.neb 08/16/17 Amlodipine Besylate [Norvasc 2.5 mg Tablet] 2.5 mg PO DAILY #30 tablet 08/16/17 Furosemide [Lasix 20 mg Tablet] 20 mg PO BID 30 Days #60 tablet 08/16/17 Guaifenesin [Mucinex Sr 600 mg Tablet.sa] 1,200 mg PO Q12 10 Days #20 tablet.sa 08/16/17 Lisinopril [Prinivil 5 mg Tablet] 5 mg PO DAILY 30 Days #30 tablet 08/16/17 Prednisone [Deltasone 20 mg Tablet] 40 mg PO DAILY 12 Days #12 tablet 08/16/17 Allergies/Adverse Reactions: azithromycin Allergy (Verified 08/31/17 02:36) amoxicillin [Amoxicillin] Adverse Reaction (Verified 07/26/17 11:39) visual hallucinations erythromycin base [Erythromycin Base] Adverse Reaction (Verified 07/26/17 11:39) visual hallucinations Potassium Clavulanate * [From Augmentin] Adverse Reaction (Verified 07/26/17 11: 39) visual hallucinations Review of Systems ROS unobtainable: Due to mental status Physical Exam Vital Signs: Temp Pulse Resp BP Pulse Ox 98.5 F 20 104/64 96 08/30/17 22:10 08/31/17 04:49 08/31/17 04:01 08/31/17 04:49 General appearance: PRESENT: cooperative, disheveled, mild distress, obese Head exam: PRESENT: atraumatic, normocephalic Eye exam: PRESENT: conjunctiva pink, EOMI, PERRLA. ABSENT: scleral icterus Ear exam: PRESENT: normal external ear exam Mouth exam: PRESENT: moist, tongue midline Neck exam: ABSENT: carotid bruit, JVD, lymphadenopathy, thyromegaly Respiratory exam: PRESENT: accessory muscle use, crackles, prolonged expiratory phas, rales, retraction, rhonchi, symmetrical, tachypnea. ABSENT: unlabored Cardiovascular exam: PRESENT: RRR. ABSENT: diastolic murmur, rubs, systolic murmur Pulses: PRESENT: normal dorsalis pedis pul Vascular exam: PRESENT: normal capillary refill GI/Abdominal exam: PRESENT: normal bowel sounds, soft. ABSENT: distended, guarding, mass, organolmegaly, rebound, tenderness Rectal exam: PRESENT: deferred Extremities exam: PRESENT: full ROM. ABSENT: calf tenderness, clubbing, pedal edema Neurological exam: PRESENT: altered Psychiatric exam: PRESENT: appropriate affect, normal mood. ABSENT: homicidal ideation, suicidal ideation Skin exam: PRESENT: dry, intact, warm. ABSENT: cyanosis, rash Results Impressions: Chest X-Ray 08/30/17 22:26 IMPRESSION: Subsegmental atelectasis at the left lung base. Assessment & Plan - Diagnosis (1) COPD exacerbation Is this a current diagnosis for this admission?: Yes Plan: An acute bronchitis complicated by extensive past medical history. Pneumonia care set deployed, incentive spirometry, flutter valve. (2) Obesity Qualifiers: Obesity type: with alveolar hypoventilation Is this a current diagnosis for this admission?: Yes Plan: Obesity will evaluate for metabolic cause with evaluation of thyroid function and dietitian consultation (3) History of cancer metastatic to brain Is this a current diagnosis for this admission?: Yes Plan: Supportive care, Patient residing alone despite severe and chronic comorbidity resulting in recurrent and recent hospital admissions. Discharge planning consulted for [facility]. - Time Time Spent: 30 to 50 Minutes
[2017-08-31 06:44] LABS: CREATINE KINASE MB 0.46 ng/mL (<4.55)
[2017-08-31 06:47] LABS: TROPONIN I 0.039 ng/mL
[2017-08-31] MEDS: METRONIDAZOLE 500 MG TABLET PO SCH ×3 (07:02→21:03)
[2017-08-31] MEDS: LEVOTHYROXINE SODIUM 0.088 MG TABLET PO SCH (07:03)
[2017-08-31] MEDS: LANSOPRAZOLE 30 MG TAB.RAP.DR PO SCH ×2 (07:04→17:37)
[2017-08-31] MEDS: HEPARIN SOD (PORCINE) 5,000 UNIT/ML 1 ML SYRINGE SUBCUT SCH ×3 (07:18→21:03)
--- NOTE | 2017-08-31 07:33 | EKG REPORT ---
SEVERITY:- ABNORMAL ECG - SINUS TACHYCARDIA RIGHT BUNDLE BRANCH BLOCK LOW VOLTAGE EKG : Confirmed by: Issa Martinez MD 31-Aug-2017 07:32:34
--- NOTE | 2017-08-31 07:33 | EKG REPORT ---
SEVERITY:- ABNORMAL ECG - SINUS TACHYCARDIA RIGHT BUNDLE BRANCH BLOCK LOW VOLTAGE EKG : Confirmed by: Issa Martinez MD 31-Aug-2017 07:32:07
[2017-08-31] MEDS: SERTRALINE HCL 50 MG TABLET PO SCH (08:15)
[2017-08-31] MEDS ORDERED: PREDNISONE 20 MG TABLET PO SCH (10:00)
[2017-08-31] MEDS: LISINOPRIL 5 MG TABLET PO SCH (10:10)
[2017-08-31] MEDS: ALLOPURINOL 100 MG TABLET PO SCH (10:11)
[2017-08-31] MEDS: GUAIFENESIN 600 MG TABLET.SA PO SCH ×2 (10:11→21:03)
[2017-08-31] MEDS: ASPIRIN 81 MG TABLET, ENT COATED PO SCH (10:11)
[2017-08-31] MEDS: AMLODIPINE BESYLATE 2.5 MG TABLET PO SCH (10:11)
[2017-08-31] MEDS: PREDNISONE 20 MG TABLET PO SCH ×2 (10:11→17:37)
--- NOTE | 2017-08-31 17:14 | PDOC PROGRESS REPORT ---
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 The patient is seen on rounds. She is found resting in bed comfortably on supplemental oxygen via nasal cannula. She has audible wheezes, but is conversational and without dyspnea at rest. The patient states that she is actually feeling much better. 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 She reports that she has home health nursing, home health aides who also assist in her care. She is interested in speaking with palliative care but declines to discuss possible placement at a shelter facility. She has no other questions or concerns at this time. Reason For Visit: EXAC COPD Physical Exam Vital Signs: Temp Pulse Resp BP Pulse Ox 98.4 F 119 H 20 109/58 L 99 08/31/17 12:47 08/31/17 14:00 08/31/17 13:28 08/31/17 12:47 08/31/17 12:47 Intake & Output 08/30/17 08/31/17 09/01/17 06:59 06:59 06:59 Weight 87.8 kg General appearance: PRESENT: no acute distress, well-developed, well-nourished, other - Overweight Head exam: PRESENT: atraumatic, normocephalic Eye exam: PRESENT: conjunctiva pink, EOMI, PERRLA. ABSENT: scleral icterus Ear exam: PRESENT: normal external ear exam Mouth exam: PRESENT: moist, tongue midline Neck exam: ABSENT: carotid bruit, JVD, lymphadenopathy, thyromegaly Respiratory exam: PRESENT: prolonged expiratory phas, rhonchi, symmetrical, wheezes - Expiratory and inspiratory wheezing throughout, other - Supplemental oxygen via nasal cannula at 2 L/min. ABSENT: rales Cardiovascular exam: PRESENT: RRR, tachycardia. ABSENT: diastolic murmur, rubs , systolic murmur Pulses: PRESENT: normal dorsalis pedis pul Vascular exam: PRESENT: normal capillary refill GI/Abdominal exam: PRESENT: normal bowel sounds, soft. ABSENT: distended, guarding, mass, organolmegaly, rebound, tenderness Rectal exam: PRESENT: deferred Extremities exam: PRESENT: full ROM. ABSENT: calf tenderness, clubbing, pedal edema Neurological exam: PRESENT: alert, awake, oriented to person, oriented to place , oriented to time, oriented to situation, CN II-XII grossly intact. ABSENT: motor sensory deficit Psychiatric exam: PRESENT: appropriate affect, normal mood. ABSENT: homicidal ideation, suicidal ideation Skin exam: PRESENT: dry, intact, warm. ABSENT: cyanosis, rash Results Impressions: Chest X-Ray 08/30/17 22:26 IMPRESSION: Subsegmental atelectasis at the left lung base. Assessment & Plan - Diagnosis (1) COPD exacerbation Is this a current diagnosis for this admission?: Yes Plan: The patient is admitted with a COPD exacerbation. As the patient has been persistently tachycardic and is requiring more supplemental oxygen and is her baseline, will proceed to inpatient status. She has been placed on doxycycline and metronidazole for coverage of potential pneumonias. She is provided supplemental oxygen as needed to maintain oxygen saturation greater than 88%. To receive DuoNeb treatments scheduled and as needed for shortness of breath. The patient's home Advair while on scheduled duo nebs. Resume the patient's home medication; Spiriva. She has been placed on p.o. prednisone. Continue Mucinex twice daily. CPAP nightly and as needed. (2) Hypertension Is this a current diagnosis for this admission?: Yes Plan: The patient's home medications are continued; amlodipine and lisinopril (3) GERD (gastroesophageal reflux disease) Qualifiers: Esophagitis presence: esophagitis presence not specified Qualified Code(s) : K21.9 - Gastro-esophageal reflux disease without esophagitis Plan: The patient has been placed on Prevacid. (4) History of cancer metastatic to brain Is this a current diagnosis for this admission?: Yes Plan: Supportive care; the patient resides at home with her granddaughter. She has had multiple recurrent hospital admissions. I did discuss with the patient the possibility of a discharge to a shelter facility for long-term care which she is declining at this time. However, she is agreeable to meeting with palliative care services. Will ask discharge planning to meet with the patient to ensure that she is receiving all services available to her. (5) Obesity Qualifiers: Obesity type: with alveolar hypoventilation Body mass index: BMI 31.0-31.9 Is this a current diagnosis for this admission?: Yes Plan: Will ask the registered dietitian to meet with the patient and make dietary recommendations. - Time Time Spent with patient: 15-24 minutes - Inpatient Certification Based on my medical assessment, after consideration of the patient's comorbidities, presenting symptoms, or acuity I expect that the services needed warrant INPATIENT care.: Yes I certify that my determination is in accordance with my understanding of Medicare's requirements for reasonable and necessary INPATIENT services [42 CFR 412.3e].: Yes Medical Necessity: Failure to Improve With Outpatient Therapy, Need for Nebulizer Therapy and Monitoring of Response
[2017-08-31] MEDS: DOXYCYCLINE HYCLATE 100 MG TABLET PO SCH (17:35)
[2017-08-31] MEDS: ACETAMINOPHEN 325 MG TABLET PO PRN (21:03)
[2017-08-31] MEDS ORDERED: AZITHROMYCIN 500 MG in DEXTROSE 5%-WATER 250 ML IV SCH (22:00)
[2017-08-31] MEDS ORDERED: FLUTICASONE/SALMETEROL DISKUS 500-50 MCG/DOSE IH SCH (22:00)
--- NOTE | 2017-08-31 23:24 | Palliative Consultation Report ---
Consultation From:: [facility] HPI: Palliative Care Consult Visit 08/31/17 4:40-5:15pm Appreciate pallliative care consult request for this 72 year old woman who has been admitted with respiratory distress via ER. Mrs. Diallo has frequent admissions during the past year for respiratory issues. At time of visit, patient is alert, oriented and in no acute distress. Her son is at bedside. Mrs. Diallo lives alone and has home health checking on her several times a week. SHe says she hopes this admission will renew the home health number of visits. Her son visits often and gets her groceries etc for her. She states she does not want to leave her home amd manages well independently. Sylvia has history of lung cancer with brain mets about ten years ago. She tells me she had chemo and radiation. SHe feels she was cured of the lung cancer, but as it was leaving her body, some of it broke off and went into her rain. But she is glad that she is cured of it in her brain also. She had recently been before she got the diagnosis of the cancer. Presently, patient uses oxygen at all times at home and uses her nebulizers. She denies pain now, but then tells me she has pain all over her body most of the time, relieved by the analgesic she took about an hour ago. She is very anxious because she says she heard nurses talking about how she had only 4-6 months to live. I told her I was sure that if they said that , they were not talking about her. Patient is full code at present. I discussed this with her in her sons presence. She says she would want "everything" done if she stopped breathing or heart stopped. She told me that she didnt like CPAP due to the mask and I explained about endotrachial tube and how it requires her to be restrained to keep the tube in to let the ventilator work. SHe said she still wanted it and they can give her medication to sedate her. She wants CPR if needed also. Mrs. Diallo denies any pain or symptoms that are not being treated and relieved. She said she is eating well and razo no problems with constipation. She is weak. SHe is worried about her heart condition getting worse. Onset: Just prior to arrival Onset/Duration: Gradual Quality of Pain: No pain, Achy Severity: Mild Pain Level: 2 Associated Symptoms: Productive cough, Fever, Shortness of breath, Weakness Exacerbated by: Movement Past Medical History(Consults) - General Information Source: Patient, Relative, [facility] Records Home Medications: Amlodipine Besylate [Norvasc 2.5 mg Tablet] 2.5 mg PO DAILY 08/31/17 Aspirin [Aspirin EC] 81 mg PO DAILY 08/31/17 Fluticasone/Salmeterol [Advair 500-50 Diskus 28 Dose] 1 puff PO Q12 08/31/17 Furosemide [Lasix 20 mg Tablet] 20 mg PO DAILY 08/31/17 Levalbuterol Tartrate [Xopenex Hfa] 15 gm IH ASDIR PRN 08/31/17 Levothyroxine Sodium [Synthroid 0.088 mg Tablet] 0.88 mg PO Q6AM 08/31/17 Lisinopril [Prinivil 5 mg Tablet] 5 mg PO DAILY 08/31/17 Metformin HCl [Glucophage 500 mg Tablet] 500 mg PO DAILY 08/31/17 Metronidazole [Flagyl 500 mg Tablet] 500 mg PO BID 08/31/17 Pantoprazole Sodium [Protonix] 40 mg PO DAILY 08/31/17 Prednisone [Deltasone 10 mg Tablet] 10 mg PO ASDIR PRN 08/31/17 Sertraline HCl [Zoloft 50 mg Tablet] 50 mg PO DAILY 08/31/17 Tiotropium [place] [Spiriva Handihaler 18 mcg/dose (30 Dose)] 1 cap IH DAILY 08/17 Allergies/Adverse Reactions: azithromycin Allergy (Verified 08/31/17 02:36) amoxicillin [Amoxicillin] Adverse Reaction (Verified 07/26/17 11:39) visual hallucinations erythromycin base [Erythromycin Base] Adverse Reaction (Verified 07/26/17 11:39) visual hallucinations Potassium Clavulanate * [From Augmentin] Adverse Reaction (Verified 07/26/17 11: 39) visual hallucinations - Social History Lives with: Alone Family History: COPD, Malignancy - Lung cancer Parental Family History Reviewed: No Children Family History Reviewed: No Sibling(s) Family History Reviewed.: No Smoking Status: Former Smoker Last Time Smoked: 1997 Frequency of Alcohol Use: None Hx Recreational Drug Use: No Drugs: None Hx Prescription Drug Abuse: No - Past Medical History Cardiac Medical History: Reports: Hx Congestive Heart Failure, Hx Coronary Artery Disease, Hx Heart Attack, Hx Hypertension Denies: Hx DVT, Hx Hypercholesterolemia, Hx Pulmonary Embolism Pulmonary Medical History: Reports: Hx Asthma, Hx Bronchitis, Hx COPD - O2 dependent at night and as needed during the day, Hx Pneumonia Denies: Hx Sleep Apnea, Hx Tuberculosis Neurological Medical History: Denies: Hx Seizures Endocrine Medical History: Reports: Hx Hypothyroidism. Denies: Hx Diabetes Mellitus Type 1, Hx Diabetes Mellitus Type 2, Hx Hyperthyroidism Renal/ Medical History: Denies: Hx End Stage Renal Disease, Hx Kidney Stones, Hx Peritoneal Dialysis Malignancy Medical History: Reports: Hx Brain Cancer - Lung cancer with brain metastases, 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 GI Medical History: Reports: Hx Gastroesophageal Reflux Disease. Denies: Hx Cirrhosis, Hx Hepatitis, Hx Ulcer Musculoskeltal Medical History: Reports Hx Arthritis, Denies Hx Multiple Sclerosis, Reports Hx Musculoskeletal Deformity, Reports Hx Musculoskeletal Trauma Psychiatric Medical History: Reports: Hx Dementia, Hx Depression Denies: Hx Bipolar Disorder, Hx Schizophrenia Infectious Medical History: Reports: Hx C-Diff. Denies: Hx Hepatitis Hematology: Reports: Anemia, Bleeding Tendencies - Surgical History Past Surgical History: Reports: Hx Cholecystectomy, Hx Orthopedic Surgery - Foot surgery Review of systems Constitutional: Weakness, Recent illness Cardiovascular: Dyspnea, Edema Respiratory: Cough, Short of breath Musculoskeltal: Joint pain, Muscle pain Skin: Dryness Neurological/Psychological: Dementia, Anxiety Ojective:Exam Vital Signs: Temp Pulse Resp BP Pulse Ox 98.9 F 95 18 123/69 98 08/31/17 19:59 08/31/17 20:05 08/31/17 20:05 08/31/17 19:59 08/31/17 20:05 Intake & Output 08/30/17 08/31/17 09/01/17 06:59 06:59 06:59 Intake Total 121 Balance 121 Weight 87.8 kg - General General Appearance: Alert, Anxious In distress: None - HEENT Head: Normocephalic Eyes: Normal Pupils: PERRLA Sinus: Normal Nasal: Normal Mucous membrane: Normal - Respiratory Respiratory Status: No respiratory distress Chest Status: Pain with cough Breath sounds: Rhonchi, Wheezing - Cardiovascular Rhythm: Regular Pulses: Normal: Brachial - Abdominal Inspection: Normal Distension: No distension - Psychological Associated symptoms: Normal affect, Anxious Plan and Recommendation Plan and Recommendation: I discussed palliaitve care with patient for inpatient visits and especially for visits at home to help prevent future admissions. She agreed to let us call her PCP to see if we can follow at home. Se does have home health and I explained that both work together well and are not duplication of services. Discussion about advance directives, CPR, intubation, but in spite of honest description of intubation and CPR, she does want to be full code and wants all of this done if needed. Her son did pay attention to the discussion and agreed with her. Will follow, no acute needs at this time. - Time Spent with Patient Time spent with patient: 15 to 30 Minutes Time: 30 min Greater then 50% spent on Counseling & Coordination of Care: 20 min.
[2017-09-01] MEDS: IPRATROPIUM/ALBUTEROL 0.5-2.5 MG/3 ML AMPUL NEB SCH ×4 (02:12→20:33)
[2017-09-01 05:12] LABS: HEMATOCRIT 30.9 % (36.0-47.0); HEMOGLOBIN 10.4 g/dL (12.0-15.5); MEAN CORPUSCULAR HEMOGLOBIN 32.2 pg (27.0-33.4); MEAN CORPUSCULAR HGB CONC 33.7 g/dL (32.0-36.0); MEAN CORPUSCULAR VOLUME 96 fl (80-97); PLATELET COUNT 125 10^3/uL (150-450); RED BLOOD COUNT 3.23 10^6/uL (3.72-5.28); RED CELL DISTRIBUTION WIDTH 15.1 % (11.5-14.0)
[2017-09-01] MEDS: LANSOPRAZOLE 30 MG TAB.RAP.DR PO SCH ×2 (05:14→16:26)
[2017-09-01] MEDS: HEPARIN SOD (PORCINE) 5,000 UNIT/ML 1 ML SYRINGE SUBCUT SCH ×3 (05:15→22:35)
[2017-09-01] MEDS: METRONIDAZOLE 500 MG TABLET PO SCH (05:15)
[2017-09-01] MEDS: LEVOTHYROXINE SODIUM 0.088 MG TABLET PO SCH (05:15)
[2017-09-01] MEDS: DOXYCYCLINE HYCLATE 100 MG TABLET PO SCH ×2 (05:15→17:12)
[2017-09-01 05:21] LABS: ANION GAP 5 (5-19); BLOOD UREA NITROGEN 22 mg/dL (7-20); CALCIUM 9.1 mg/dL (8.4-10.2); CARBON DIOXIDE 36 mmol/L (22-30); CHLORIDE 102 mmol/L (98-107); GLUCOSE 166 mg/dL (75-110); POTASSIUM 4.8 mmol/L (3.6-5.0); SODIUM 142.7 mmol/L (137-145)
[2017-09-01 05:41] LABS: ABSOLUTE LYMPHOCYTES# (MANUAL) 0.2 10^3/uL (0.5-4.7); ABSOLUTE MONOCYTES # (MANUAL) 0.2 10^3/uL (0.1-1.4); ABSOLUTE NEUTROPHILS# (MANUAL) 3.6 10^3/uL (1.7-8.2); BAND NEUTROPHILS % (MANUAL) 5 % (3-5); BASOPHILS % (MANUAL) 0 % (0-2); EOSINOPHILS % (MANUAL) 0 % (0-6); LYMPHOCYTES % (MANUAL) 5 % (13-45); MONOCYTES % (MANUAL) 4 % (3-13); SEGMENTED NEUTROPHILS % (MAN) 86 % (42-78); TOTAL CELLS COUNTED 100
[2017-09-01 05:42] LABS: ANISOCYTOSIS SLIGHT; OVALOCYTES SLIGHT; PLATELET COMMENT DECREASED; POIKILOCYTOSIS SLIGHT; TEAR DROP CELLS SLIGHT; TOXIC GRANULATION SLIGHT
[2017-09-01] MEDS ORDERED: LEVOTHYROXINE SODIUM 0.088 MG TABLET PO SCH (06:00)
[2017-09-01] MEDS: ASPIRIN 81 MG TABLET, ENT COATED PO SCH (09:45)
[2017-09-01] MEDS: PREDNISONE 20 MG TABLET PO SCH ×2 (09:45→17:13)
[2017-09-01] MEDS: GUAIFENESIN 600 MG TABLET.SA PO SCH ×2 (09:45→22:34)
[2017-09-01] MEDS: SERTRALINE HCL 50 MG TABLET PO SCH (09:45)
[2017-09-01] MEDS: ALLOPURINOL 100 MG TABLET PO SCH (09:46)
[2017-09-01] MEDS: LISINOPRIL 5 MG TABLET PO SCH (09:46)
[2017-09-01] MEDS: TIOTROPIUM BROMIDE DPI 5 CAP/KIT (18 MCG/CAP) IH SCH (09:47)
[2017-09-01] MEDS: AMLODIPINE BESYLATE 2.5 MG TABLET PO SCH (09:47)
[2017-09-01] MEDS ORDERED: LEVALBUTEROL HCL NEB 1.25 MG/3 ML AMPUL NEB PRN (14:04)
--- NOTE | 2017-09-01 14:11 | PDOC PROGRESS REPORT ---
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 The patient is seen on rounds. She is found resting in bed comfortably on supplemental oxygen via nasal cannula at 3 lpm. She is home oxygen dependent at 2 lpm. She continues to have audible wheezes, but is conversational and without dyspnea at rest. The patient states that she is feeling much better and did not use BiPAP overnight. She tells me that she does have a CPAP machine which she uses nightly at home, however, did not like the mask fit of our BiPAP and so remained on supplemental oxygen by nasal cannula only. She did meet with palliative care yesterday, and appreciates that they plan to follow her as an outpatient after discharge. She has no other questions or concerns at this time. Reason For Visit: EXAC COPD Physical Exam Vital Signs: Temp Pulse Resp BP Pulse Ox 98.6 F 105 H 18 127/76 H 100 09/01/17 11:44 09/01/17 11:44 09/01/17 11:44 09/01/17 11:44 09/01/17 11:44 Intake & Output 08/31/17 09/01/17 09/02/17 06:59 06:59 06:59 Intake Total 521 Balance 521 Weight 88.1 kg General appearance: PRESENT: no acute distress, well-developed, well-nourished, other - OVerweight Head exam: PRESENT: atraumatic, normocephalic Eye exam: PRESENT: conjunctiva pink, EOMI, PERRLA. ABSENT: scleral icterus Ear exam: PRESENT: normal external ear exam Mouth exam: PRESENT: moist, tongue midline Neck exam: ABSENT: carotid bruit, JVD, lymphadenopathy, thyromegaly Respiratory exam: PRESENT: rhonchi, symmetrical, unlabored, wheezes, other - Supplemental oxygen via nasal cannula. ABSENT: rales Cardiovascular exam: PRESENT: RRR, tachycardia. ABSENT: diastolic murmur, rubs , systolic murmur Pulses: PRESENT: normal dorsalis pedis pul Vascular exam: PRESENT: normal capillary refill GI/Abdominal exam: PRESENT: normal bowel sounds, soft. ABSENT: distended, guarding, mass, organolmegaly, rebound, tenderness Rectal exam: PRESENT: deferred Extremities exam: PRESENT: full ROM. ABSENT: calf tenderness, clubbing, pedal edema Neurological exam: PRESENT: alert, awake, oriented to person, oriented to place , oriented to time, oriented to situation, CN II-XII grossly intact. ABSENT: motor sensory deficit Psychiatric exam: PRESENT: appropriate affect, normal mood. ABSENT: homicidal ideation, suicidal ideation Skin exam: PRESENT: dry, intact, warm. ABSENT: cyanosis, rash Results Laboratory Results: 09/01/17 04:50 09/01/17 04:50 09/01/17 09/01/17 04:50 04:50 WBC 4.0 RBC 3.23 L Hgb 10.4 L Hct 30.9 L MCV 96 MCH 32.2 MCHC 33.7 RDW 15.1 H Plt Count 125 L Seg Neutrophils % Not Reportable Lymphocytes % Not Reportable Monocytes % Not Reportable Eosinophils % Not Reportable Basophils % Not Reportable Absolute Neutrophils Not Reportable Absolute Lymphocytes Not Reportable Absolute Monocytes Not Reportable Absolute Eosinophils Not Reportable Absolute Basophils Not Reportable Sodium 142.7 Potassium 4.8 Chloride 102 Carbon Dioxide 36 H Anion Gap 5 BUN 22 H Creatinine 0.89 Est GFR ( Amer) > 60 Est GFR (Non-Af Amer) > 60 Glucose 166 H Calcium 9.1 Impressions: Chest X-Ray 08/30/17 22:26 IMPRESSION: Subsegmental atelectasis at the left lung base. Assessment & Plan - Diagnosis (1) COPD exacerbation Is this a current diagnosis for this admission?: Yes Plan: Slight improvement; the patient was admitted with a COPD exacerbation. She is on doxycycline for empiric coverage of a bronchitis/pneumonia. She is provided supplemental oxygen as needed to maintain oxygen saturation greater than 88%. BiPAP is to be used nightly. To receive scheduled DuoNeba with as needed Xopenex. The patient's home Advair is held while on scheduled duo nebs. Resume the patient's home medication; Spiriva. She has been placed on p.o. prednisone. Continue Mucinex twice daily. (2) Hypertension Is this a current diagnosis for this admission?: Yes Plan: The patient's home medications are continued; amlodipine and lisinopril (3) GERD (gastroesophageal reflux disease) Qualifiers: Esophagitis presence: esophagitis presence not specified Qualified Code(s) : K21.9 - Gastro-esophageal reflux disease without esophagitis Plan: The patient has been placed on Prevacid. 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 She did meet with palliative care services yesterday and is appreciative that they will continue to follow her as an outpatient. Will ask discharge planning to meet with the patient to ensure that she is receiving all services available to her. (5) Obesity Qualifiers: Obesity type: with alveolar hypoventilation Body mass index: BMI 31.0-31.9 Is this a current diagnosis for this admission?: Yes Plan: Will ask the registered dietitian to meet with the patient and make dietary recommendations. (6) Chronic back pain Qualifiers: Back pain location: low back pain Back pain laterality: unspecified Is this a current diagnosis for this admission?: Yes Plan: The patient reports chronic back pain that is managed by oxycodone as an outpatient. Review of the [place] controlled substance database shows that the last oxycodone prescription was written in February and that she has not had any other controlled substances prescribed since that time. We will encourage the patient to use Tylenol for pain and provide low-dose tramadol for breakthrough pain. Encourage nonpharmacological interventions such as ice, heat, repositioning, distraction. - Time Time Spent with patient: 25-34 minutes Medications reviewed and adjusted accordingly: Yes Anticipated discharge: Home with Homehealth
[2017-09-01] MEDS: NYSTATIN TOPICAL POWDER 15 GM TP SCH ×2 (22:34→23:15)
[2017-09-01] MEDS: TRAMADOL HCL 50 MG TABLET PO PRN (23:16)
[2017-09-02] MEDS: IPRATROPIUM/ALBUTEROL 0.5-2.5 MG/3 ML AMPUL NEB SCH ×4 (01:00→21:10)
[2017-09-02] MEDS: LANSOPRAZOLE 30 MG TAB.RAP.DR PO SCH ×2 (06:00→17:01)
[2017-09-02] MEDS: HEPARIN SOD (PORCINE) 5,000 UNIT/ML 1 ML SYRINGE SUBCUT SCH ×3 (06:00→21:32)
[2017-09-02] MEDS: DOXYCYCLINE HYCLATE 100 MG TABLET PO SCH ×2 (06:01→17:01)
[2017-09-02] MEDS: NYSTATIN TOPICAL POWDER 15 GM TP SCH ×4 (06:01→23:43)
[2017-09-02] MEDS: LEVOTHYROXINE SODIUM 0.088 MG TABLET PO SCH (06:01)
[2017-09-02 06:38] LABS: HEMATOCRIT 30.8 % (36.0-47.0); HEMOGLOBIN 10.3 g/dL (12.0-15.5); MEAN CORPUSCULAR HGB CONC 33.4 g/dL (32.0-36.0); MEAN CORPUSCULAR VOLUME 96 fl (80-97); PLATELET COUNT 138 10^3/uL (150-450); RED BLOOD COUNT 3.21 10^6/uL (3.72-5.28); RED CELL DISTRIBUTION WIDTH 15.1 % (11.5-14.0); WHITE BLOOD COUNT 5.4 10^3/uL (4.0-10.5)
[2017-09-02 06:52] LABS: ANION GAP 5 (5-19); BLOOD UREA NITROGEN 22 mg/dL (7-20); CALCIUM 9.1 mg/dL (8.4-10.2); CARBON DIOXIDE 34 mmol/L (22-30); CHLORIDE 105 mmol/L (98-107); GLUCOSE 105 mg/dL (75-110); POTASSIUM 4.2 mmol/L (3.6-5.0); SODIUM 143.7 mmol/L (137-145)
[2017-09-02] MEDS: SERTRALINE HCL 50 MG TABLET PO SCH (07:04)
[2017-09-02] MEDS ORDERED: NORMAL SALINE 1000 ML 1,000 ML IV PRN (07:57)
[2017-09-02] MEDS ORDERED: LEVALBUTEROL HCL NEB 1.25 MG/3 ML AMPUL NEB PRN (09:18)
[2017-09-02] MEDS ORDERED: IPRATROPIUM/ALBUTEROL 0.5-2.5 MG/3 ML AMPUL NEB ONE (09:45)
--- NOTE | 2017-09-02 10:14 | RADIOLOGY REPORT (SQ) ---
EXAM DESCRIPTION: CHEST SINGLE VIEW COMPLETED DATE/TIME: 09/02/2017 9:51 am REASON FOR STUDY: dyspnea COMPARISON: 08/30/2017 EXAM PARAMETERS: NUMBER OF VIEWS: One view. TECHNIQUE: Single frontal radiographic view of the chest acquired. RADIATION DOSE: NA LIMITATIONS: None. FINDINGS: LUNGS AND PLEURA: Stable areas of peripheral scarring. MEDIASTINUM AND HILAR STRUCTURES: Stable appearance right hilum. HEART AND VASCULAR STRUCTURES: Heart normal in size. Normal vasculature. BONES: No acute findings. HARDWARE: None in the chest. OTHER: No other significant finding. IMPRESSION: Stable, chronic changes. TECHNICAL DOCUMENTATION: JOB ID: [id number] [employer]- All Rights Reserved
[2017-09-02] MEDS: ALLOPURINOL 100 MG TABLET PO SCH (10:41)
[2017-09-02] MEDS: AMLODIPINE BESYLATE 2.5 MG TABLET PO SCH (10:42)
[2017-09-02] MEDS: ASPIRIN 81 MG TABLET, ENT COATED PO SCH (10:42)
[2017-09-02] MEDS: GUAIFENESIN 600 MG TABLET.SA PO SCH ×2 (10:42→21:32)
[2017-09-02] MEDS: TIOTROPIUM BROMIDE DPI 5 CAP/KIT (18 MCG/CAP) IH SCH (10:43)
[2017-09-02] MEDS: LISINOPRIL 5 MG TABLET PO SCH (10:43)
[2017-09-02 12:03] LABS: VENOUS BLOOD BASE EXCESS 4.7 mmol/L; VENOUS BLOOD HCO3 30.7 mmol/L (20-32); VENOUS BLOOD PCO2 51.3 mmHg (35-63); VENOUS BLOOD PH 7.4 (7.30-7.42)
[2017-09-02 12:28] LABS: CREATINE KINASE MB 0.84 ng/mL (<4.55); TROPONIN I 0.04 ng/mL
[2017-09-02] MEDS: METHYLPREDNISOLONE INJ 40 MG/1 ML SDV IV SCH ×2 (14:11→21:32)
--- NOTE | 2017-09-02 15:05 | PDOC PROGRESS REPORT ---
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 The patient is seen on rounds. She is found resting in bed on supplemental oxygen via nasal cannula at 3 lpm. She is home oxygen dependent at 2 lpm. She continues to have audible wheezes, but is conversational and without dyspnea at rest. She appears to be more fatigued this morning, though wakes easily. She did use CPAP overnight. She complains of inguinal skin fold redness and irritation. She requests a cream of powder for itching. Nursing is concerned that the patient has appeared to be more fatigued and has had increased tachycardia. The patient's baseline heart rate is now 110 with increases to 140 with coughing or movement and it appears to take a longer time for her to recover. She has no other questions or concerns at this time. Reason For Visit: EXAC COPD Physical Exam Vital Signs: Temp Pulse Resp BP Pulse Ox 98.5 F 114 H 20 120/77 98 09/02/17 11:17 09/02/17 14:08 09/02/17 14:08 09/02/17 11:17 09/02/17 14:08 Intake & Output 09/01/17 09/02/17 09/03/17 06:59 06:59 06:59 Intake Total 521 1223 Output Total 7 Balance 521 1216 Weight 88.1 kg 88.3 kg General appearance: PRESENT: no acute distress, well-developed, well-nourished, other - Overweight Head exam: PRESENT: atraumatic, normocephalic Eye exam: PRESENT: conjunctiva pink, EOMI, PERRLA. ABSENT: scleral icterus Ear exam: PRESENT: normal external ear exam Mouth exam: PRESENT: moist, tongue midline Neck exam: ABSENT: carotid bruit, JVD, lymphadenopathy, thyromegaly Respiratory exam: PRESENT: decreased breath sounds - Bibasilar, prolonged expiratory phas, rhonchi, tachypnea, wheezes. ABSENT: rales Cardiovascular exam: PRESENT: RRR, tachycardia. ABSENT: diastolic murmur, rubs , systolic murmur Pulses: PRESENT: normal dorsalis pedis pul Vascular exam: PRESENT: normal capillary refill GI/Abdominal exam: PRESENT: normal bowel sounds, soft. ABSENT: distended, guarding, mass, organolmegaly, rebound, tenderness Rectal exam: PRESENT: deferred Extremities exam: PRESENT: full ROM. ABSENT: calf tenderness, clubbing, pedal edema Neurological exam: PRESENT: alert, awake, oriented to person, oriented to place , oriented to time, oriented to situation, CN II-XII grossly intact. ABSENT: motor sensory deficit Psychiatric exam: PRESENT: appropriate affect, normal mood. ABSENT: homicidal ideation, suicidal ideation Skin exam: PRESENT: dry, erythema - skin folds, intact, warm. ABSENT: cyanosis , rash Results Laboratory Results: 09/02/17 05:27 09/02/17 05:27 09/02/17 09/02/17 09/02/17 05:27 05:27 11:39 WBC 5.4 RBC 3.21 L Hgb 10.3 L Hct 30.8 L MCV 96 MCH 32.0 MCHC 33.4 RDW 15.1 H Plt Count 138 L VBG pH 7.40 VBG pCO2 51.3 VBG HCO3 30.7 VBG Base Excess 4.7 Sodium 143.7 Potassium 4.2 Chloride 105 Carbon Dioxide 34 H Anion Gap 5 BUN 22 H Creatinine 0.78 Est GFR ( Amer) > 60 Est GFR (Non-Af Amer) > 60 Glucose 105 Calcium 9.1 09/02/17 09/02/17 09/02/17 11:39 11:39 11:39 Creatine Kinase 23 L CK-MB (CK-2) 0.84 Troponin I 0.040 NT-Pro-B Natriuret Pep 1910 H Impressions: Chest X-Ray 09/02/17 00:00 IMPRESSION: Stable, chronic changes. Assessment & Plan - Diagnosis (1) COPD exacerbation Is this a current diagnosis for this admission?: Yes Plan: Appears somewhat worsened today with increased tachypnea, tachycardia, and fatigue. Repeat chest x-ray does not show any acute processes. Venous blood gas this morning is normal. She is on doxycycline for empiric coverage of a bronchitis/pneumonia. She is provided supplemental oxygen as needed to maintain oxygen saturation greater than 88%. BiPAP is to be used nightly and as needed; will encourage daytime use. To receive scheduled DuoNeba with as needed Xopenex. The patient's home Advair is held while on scheduled duo nebs. Resume the patient's home medication; Spiriva. We will escalate steroids to IV Solu-Medrol. Continue Mucinex twice daily. (2) Tachycardia Is this a current diagnosis for this admission?: Yes Plan: Persistent tachycardia; likely secondary to COPD exacerbation. Repeat chest x-ray did not show acute findings. EKG demonstrates sinus tachycardia with right bundle branch block; no ST segment elevation or depression noted. ProBNP is elevated to 1910; the patient does not appear to be volume overloaded , however, her home dose of furosemide has been held. Will resume p.o. furosemide 20 mg daily. We will trend troponins. PE is considered; the patient is anticoagulated with subcutaneous heparin. She has no history of blood clots and there is no evidence of extremity edema. Will monitor closely and obtain CTA should the patient's clinical condition not improve with plan as above. (3) Hypertension Is this a current diagnosis for this admission?: Yes Plan: The patient's home medications are continued; amlodipine and lisinopril (4) GERD (gastroesophageal reflux disease) Qualifiers: Esophagitis presence: esophagitis presence not specified Qualified Code(s) : K21.9 - Gastro-esophageal reflux disease without esophagitis Plan: The patient has been placed on Prevacid. 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 She did meet with palliative care services yesterday and is appreciative that they will continue to follow her as an outpatient. Will ask discharge planning to meet with the patient to ensure that she is receiving all services available to her. (6) Obesity Qualifiers: Obesity type: with alveolar hypoventilation Body mass index: BMI 31.0-31.9 Is this a current diagnosis for this admission?: Yes Plan: Will ask the registered dietitian to meet with the patient and make dietary recommendations. (7) Chronic back pain Qualifiers: Back pain location: low back pain Back pain laterality: unspecified Is this a current diagnosis for this admission?: Yes Plan: The patient reports chronic back pain that is managed by oxycodone as an outpatient. Review of the [place] controlled substance database shows that the last oxycodone prescription was written in February and that she has not had any other controlled substances prescribed since that time. We will encourage the patient to use Tylenol for pain and provide low-dose tramadol for breakthrough pain. Encourage nonpharmacological interventions such as ice, heat, repositioning, distraction. (8) CHF with left ventricular diastolic dysfunction, NYHA class 1 Is this a current diagnosis for this admission?: Yes Plan: Echocardiogram obtained on 08/14/17 demonstrated an LVEF greater than 60% with normal ventricular systolic function and a mild diastolic dysfunction. ProBNP is currently elevated to 1910; strain is likely secondary to COPD exacerbation. The patient is not currently receiving IV fluids. She is placed on a cardiac diet. Will monitor daily weights. We will resume the patient's home medication; furosemide 20 mg daily. - Time Time Spent with patient: 35 or more minutes Medications reviewed and adjusted accordingly: Yes Anticipated discharge: Home
--- NOTE | 2017-09-02 17:36 | EKG REPORT ---
SEVERITY:- ABNORMAL ECG - SINUS TACHYCARDIA PAIRED ATRIAL PREMATURE COMPLEXES RIGHT BUNDLE BRANCH BLOCK : Confirmed by: Issa Martinez MD 02-Sep-2017 17:35:42
[2017-09-02 18:29] LABS: CREATINE KINASE MB 1.11 ng/mL (<4.55); TROPONIN I 0.036 ng/mL
[2017-09-02] MEDS: TRAMADOL HCL 50 MG TABLET PO PRN (21:32)
[2017-09-03 00:13] LABS: CREATINE KINASE MB 0.91 ng/mL (<4.55); TROPONIN I 0.024 ng/mL
[2017-09-03] MEDS: IPRATROPIUM/ALBUTEROL 0.5-2.5 MG/3 ML AMPUL NEB SCH ×4 (02:19→20:23)
[2017-09-03 06:08] LABS: HEMATOCRIT 30.7 % (36.0-47.0); HEMOGLOBIN 10.3 g/dL (12.0-15.5); MEAN CORPUSCULAR HEMOGLOBIN 32.3 pg (27.0-33.4); MEAN CORPUSCULAR HGB CONC 33.6 g/dL (32.0-36.0); MEAN CORPUSCULAR VOLUME 96 fl (80-97); PLATELET COUNT 142 10^3/uL (150-450); WHITE BLOOD COUNT 4.4 10^3/uL (4.0-10.5)
[2017-09-03 06:32] LABS: BLOOD UREA NITROGEN 18 mg/dL (7-20); CALCIUM 9.4 mg/dL (8.4-10.2); GLUCOSE 170 mg/dL (75-110)
[2017-09-03] MEDS: DOXYCYCLINE HYCLATE 100 MG TABLET PO SCH ×2 (06:39→17:33)
[2017-09-03] MEDS: SERTRALINE HCL 50 MG TABLET PO SCH ×2 (06:40→10:44)
[2017-09-03] MEDS: LEVOTHYROXINE SODIUM 0.088 MG TABLET PO SCH (06:40)
[2017-09-03] MEDS: METHYLPREDNISOLONE INJ 40 MG/1 ML SDV IV SCH ×3 (06:40→21:35)
[2017-09-03] MEDS: LANSOPRAZOLE 30 MG TAB.RAP.DR PO SCH ×2 (06:40→17:33)
[2017-09-03] MEDS: HEPARIN SOD (PORCINE) 5,000 UNIT/ML 1 ML SYRINGE SUBCUT SCH ×3 (06:40→21:28)
[2017-09-03] MEDS: NYSTATIN TOPICAL POWDER 15 GM TP SCH ×4 (06:43→22:19)
[2017-09-03 06:45] LABS: ANION GAP 6 (5-19); CARBON DIOXIDE 31 mmol/L (22-30); CHLORIDE 103 mmol/L (98-107); POTASSIUM 4.4 mmol/L (3.6-5.0); SODIUM 140.1 mmol/L (137-145)
[2017-09-03] MEDS: AMLODIPINE BESYLATE 2.5 MG TABLET PO SCH (10:43)
[2017-09-03] MEDS: GUAIFENESIN 600 MG TABLET.SA PO SCH ×2 (10:43→21:35)
[2017-09-03] MEDS: ALLOPURINOL 100 MG TABLET PO SCH (10:45)
[2017-09-03] MEDS: FUROSEMIDE 20 MG TABLET PO SCH (10:45)
[2017-09-03] MEDS: ASPIRIN 81 MG TABLET, ENT COATED PO SCH (10:46)
[2017-09-03] MEDS: LISINOPRIL 5 MG TABLET PO SCH (10:46)
[2017-09-03] MEDS: TIOTROPIUM BROMIDE DPI 5 CAP/KIT (18 MCG/CAP) IH SCH (10:47)
[2017-09-03] MEDS ORDERED: METHYLPREDNISOLONE INJ 40 MG/1 ML SDV IV SCH (13:12)
--- NOTE | 2017-09-03 13:20 | PDOC PROGRESS REPORT ---
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 The patient is seen on rounds. She is found resting in bed on supplemental oxygen via nasal cannula at 3 lpm. She is home oxygen dependent at 2 lpm. She looks much improved today. She is fully awake, sitting upright reading the paper, and conversational without pauses. She states that she is feeling well and actually was hoping to be discharged home today. She does continue to complain of dyspnea on exertion and has not been ambulatory in the halls yet. She has no new concerns. Reason For Visit: EXAC COPD Physical Exam Vital Signs: Temp Pulse Resp BP Pulse Ox 98.2 F 90 18 139/83 H 98 09/03/17 03:21 09/03/17 08:29 09/03/17 08:29 09/03/17 03:21 09/03/17 08:29 Intake & Output 09/02/17 09/03/17 09/04/17 06:59 06:59 06:59 Intake Total 1223 481 Output Total 7 Balance 1216 481 Weight 88.3 kg 88.1 kg General appearance: PRESENT: no acute distress, well-developed, well-nourished, other - Overweight Head exam: PRESENT: atraumatic, normocephalic Eye exam: PRESENT: conjunctiva pink, EOMI, PERRLA. ABSENT: scleral icterus Ear exam: PRESENT: normal external ear exam Mouth exam: PRESENT: moist, tongue midline Neck exam: ABSENT: carotid bruit, JVD, lymphadenopathy, thyromegaly Respiratory exam: PRESENT: decreased breath sounds - Basilar, prolonged expiratory phas, symmetrical, unlabored, wheezes - Occasional expiratory wheezing; lessened from yesterday, other - Supplemental oxygen via nasal cannula. ABSENT: rales, rhonchi, tachypnea Cardiovascular exam: PRESENT: RRR, +S1, +S2. ABSENT: diastolic murmur, rubs, systolic murmur, tachycardia Pulses: PRESENT: normal dorsalis pedis pul Vascular exam: PRESENT: normal capillary refill GI/Abdominal exam: PRESENT: normal bowel sounds, soft. ABSENT: distended, guarding, mass, organolmegaly, rebound, tenderness Rectal exam: PRESENT: deferred Extremities exam: PRESENT: full ROM. ABSENT: calf tenderness, clubbing, pedal edema Neurological exam: PRESENT: alert, awake, oriented to person, oriented to place , oriented to time, oriented to situation, CN II-XII grossly intact. ABSENT: motor sensory deficit Psychiatric exam: PRESENT: appropriate affect, normal mood. ABSENT: homicidal ideation, suicidal ideation Skin exam: PRESENT: dry, intact, warm. ABSENT: cyanosis, rash Results Laboratory Results: 09/03/17 05:04 09/03/17 05:04 09/03/17 09/03/17 05:04 05:04 WBC 4.4 RBC 3.20 L Hgb 10.3 L Hct 30.7 L MCV 96 MCH 32.3 MCHC 33.6 RDW 15.0 H Plt Count 142 L Sodium 140.1 Potassium 4.4 Chloride 103 Carbon Dioxide 31 H Anion Gap 6 BUN 18 Creatinine 0.74 Est GFR ( Amer) > 60 Est GFR (Non-Af Amer) > 60 Glucose 170 H Calcium 9.4 09/02/17 09/02/17 09/02/17 11:39 11:39 11:39 Creatine Kinase 23 L CK-MB (CK-2) 0.84 Troponin I 0.040 NT-Pro-B Natriuret Pep 1910 H 09/02/17 09/02/17 09/02/17 17:30 17:30 23:32 Creatine Kinase 26 L < 20 L CK-MB (CK-2) 1.11 Troponin I 0.036 NT-Pro-B Natriuret Pep 09/02/17 23:32 Creatine Kinase CK-MB (CK-2) 0.91 Troponin I 0.024 NT-Pro-B Natriuret Pep Impressions: Chest X-Ray 09/02/17 00:00 IMPRESSION: Stable, chronic changes. Assessment & Plan - Diagnosis (1) COPD exacerbation Is this a current diagnosis for this admission?: Yes Plan: Improving. She is on doxycycline for empiric coverage of a bronchitis/pneumonia. She is provided supplemental oxygen as needed to maintain oxygen saturation greater than 88%. BiPAP is to be used nightly and as needed; will encourage daytime use. To receive scheduled DuoNeb with as needed Xopenex. The patient's home Advair is held while on scheduled duo nebs. Conint the patient's home medication; Spiriva. Continue IV Solu-Medrol; may begin weaning tomorrow if doing well. Continue Mucinex twice daily. (2) Tachycardia Is this a current diagnosis for this admission?: Yes Plan: Improved; HR is now in the low 100s. Likely secondary to COPD exacerbation. Repeat chest x-ray did not show acute findings. EKG demonstrated sinus tachycardia with right bundle branch block; no ST segment elevation or depression noted. ProBNP is elevated to 1910 Troponins were in the indeterminate range and have trended downward. PE is considered; the patient is anticoagulated with subcutaneous heparin. She has no history of blood clots and there is no evidence of extremity edema. As the patient is much improved following escalation of steroid therapy and resumption of home dose of furosemide, will hold on CTA at this time. (3) Hypertension Is this a current diagnosis for this admission?: Yes Plan: The patient's home medications are continued; amlodipine and lisinopril (4) GERD (gastroesophageal reflux disease) Qualifiers: Esophagitis presence: esophagitis presence not specified Qualified Code(s) : K21.9 - Gastro-esophageal reflux disease without esophagitis Plan: The patient has been placed on Prevacid. 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 She did meet with palliative care services yesterday and is appreciative that they will continue to follow her as an outpatient. Will ask discharge planning to meet with the patient to ensure that she is receiving all services available to her. (6) Obesity Qualifiers: Obesity type: with alveolar hypoventilation Body mass index: BMI 31.0-31.9 Is this a current diagnosis for this admission?: Yes Plan: Will ask the registered dietitian to meet with the patient and make dietary recommendations. (7) Chronic back pain Qualifiers: Back pain location: low back pain Back pain laterality: unspecified Is this a current diagnosis for this admission?: Yes Plan: The patient reports chronic back pain that is managed by oxycodone as an outpatient. Review of the [place] controlled substance database shows that the last oxycodone prescription was written in February and that she has not had any other controlled substances prescribed since that time. We will encourage the patient to use Tylenol for pain and provide low-dose tramadol for breakthrough pain. Encourage nonpharmacological interventions such as ice, heat, repositioning, distraction. (8) CHF with left ventricular diastolic dysfunction, NYHA class 1 Is this a current diagnosis for this admission?: Yes Plan: Echocardiogram obtained on 08/14/17 demonstrated an LVEF greater than 60% with normal ventricular systolic function and a mild diastolic dysfunction. Troponins are reassuring. ProBNP is currently elevated to 1910; strain is likely secondary to COPD exacerbation. The patient is not currently receiving IV fluids. She is placed on a cardiac diet. Will monitor daily weights. Continue furosemide 20 mg daily. (9) Generalized weakness Is this a current diagnosis for this admission?: Yes Plan: We will ask physical therapy to evaluate and treat the patient. Have encouraged mobility; patient should get out of the bed daily and attempt walking in the hallway with assistance. - Time Time Spent with patient: 25-34 minutes Anticipated discharge: Home with Homehealth Within: within 36 hours
[2017-09-04] MEDS: IPRATROPIUM/ALBUTEROL 0.5-2.5 MG/3 ML AMPUL NEB SCH ×4 (02:33→19:53)
[2017-09-04] MEDS: HEPARIN SOD (PORCINE) 5,000 UNIT/ML 1 ML SYRINGE SUBCUT SCH ×3 (05:28→21:57)
[2017-09-04] MEDS: METHYLPREDNISOLONE INJ 40 MG/1 ML SDV IV SCH ×3 (05:29→21:38)
[2017-09-04] MEDS: LANSOPRAZOLE 30 MG TAB.RAP.DR PO SCH ×2 (05:29→18:29)
[2017-09-04] MEDS: NYSTATIN TOPICAL POWDER 15 GM TP SCH ×4 (05:29→23:20)
[2017-09-04] MEDS: LEVOTHYROXINE SODIUM 0.088 MG TABLET PO SCH (05:29)
[2017-09-04] MEDS: DOXYCYCLINE HYCLATE 100 MG TABLET PO SCH ×2 (05:29→18:29)
[2017-09-04] MEDS: ACETAMINOPHEN 325 MG TABLET PO PRN (08:36)
[2017-09-04] MEDS: FUROSEMIDE 20 MG TABLET PO SCH (10:34)
[2017-09-04] MEDS: ALLOPURINOL 100 MG TABLET PO SCH (10:34)
[2017-09-04] MEDS: GUAIFENESIN 600 MG TABLET.SA PO SCH ×2 (10:34→21:38)
[2017-09-04] MEDS: LISINOPRIL 5 MG TABLET PO SCH (10:37)
[2017-09-04] MEDS: AMLODIPINE BESYLATE 2.5 MG TABLET PO SCH (10:38)
[2017-09-04] MEDS: ASPIRIN 81 MG TABLET, ENT COATED PO SCH (10:38)
[2017-09-04] MEDS: TIOTROPIUM BROMIDE DPI 5 CAP/KIT (18 MCG/CAP) IH SCH (10:39)
--- NOTE | 2017-09-04 14:24 | PDOC PROGRESS REPORT ---
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 The patient is seen on rounds. She is found resting in bed on supplemental oxygen via nasal cannula at 3 lpm. She is home oxygen dependent at 2 lpm. She looks much improved today. She is fully awake, sitting upright reading the paper, and conversational without pause. She continues to report improvements in breathing; she denies dyspnea and cough. She has not ambulated in halls yet. She has no new concerns. Reason For Visit: EXAC COPD Physical Exam Vital Signs: Temp Pulse Resp BP Pulse Ox 98.5 F 102 H 18 153/86 H 95 09/04/17 07:33 09/04/17 13:40 09/04/17 13:40 09/04/17 07:33 09/04/17 13:40 Intake & Output 09/03/17 09/04/17 09/05/17 06:59 06:59 06:59 Intake Total 481 990 Balance 481 990 Weight 88.1 kg 87.6 kg General appearance: PRESENT: no acute distress, well-developed, well-nourished Head exam: PRESENT: atraumatic, normocephalic Eye exam: PRESENT: conjunctiva pink, EOMI, PERRLA. ABSENT: scleral icterus Ear exam: PRESENT: normal external ear exam Mouth exam: PRESENT: moist, tongue midline Neck exam: ABSENT: carotid bruit, JVD, lymphadenopathy, thyromegaly Respiratory exam: PRESENT: prolonged expiratory phas, symmetrical, unlabored, wheezes - expiratory wheeze throughout. ABSENT: rales, rhonchi Cardiovascular exam: PRESENT: RRR. ABSENT: diastolic murmur, rubs, systolic murmur Pulses: PRESENT: normal dorsalis pedis pul Vascular exam: PRESENT: normal capillary refill GI/Abdominal exam: PRESENT: normal bowel sounds, soft. ABSENT: distended, guarding, mass, organolmegaly, rebound, tenderness Rectal exam: PRESENT: deferred Extremities exam: PRESENT: full ROM. ABSENT: calf tenderness, clubbing, pedal edema Neurological exam: PRESENT: alert, awake, oriented to person, oriented to place , oriented to time, oriented to situation, CN II-XII grossly intact. ABSENT: motor sensory deficit Psychiatric exam: PRESENT: appropriate affect, normal mood. ABSENT: homicidal ideation, suicidal ideation Skin exam: PRESENT: dry, intact, warm. ABSENT: cyanosis, rash Results Laboratory Results: 09/03/17 05:04 09/03/17 05:04 09/02/17 09/02/17 09/02/17 11:39 11:39 11:39 Creatine Kinase 23 L CK-MB (CK-2) 0.84 Troponin I 0.040 NT-Pro-B Natriuret Pep 1910 H 09/02/17 09/02/17 09/02/17 17:30 17:30 23:32 Creatine Kinase 26 L < 20 L CK-MB (CK-2) 1.11 Troponin I 0.036 NT-Pro-B Natriuret Pep 09/02/17 23:32 Creatine Kinase CK-MB (CK-2) 0.91 Troponin I 0.024 NT-Pro-B Natriuret Pep Impressions: Chest X-Ray 09/02/17 00:00 IMPRESSION: Stable, chronic changes. Assessment & Plan - Diagnosis (1) COPD exacerbation Is this a current diagnosis for this admission?: Yes Plan: Improving. She is on doxycycline for empiric coverage of a bronchitis/pneumonia. She is provided supplemental oxygen as needed to maintain oxygen saturation greater than 88%. BiPAP is to be used nightly and as needed; will encourage daytime use. To receive scheduled DuoNeb with as needed Xopenex. The patient's home Advair is held while on scheduled duo nebs. Conint the patient's home medication; Spiriva. Continue IV Solu-Medrol; may begin weaning tomorrow if doing well. Continue Mucinex twice daily. (2) Tachycardia Is this a current diagnosis for this admission?: Yes Plan: Improved; HR is now in the low 100s. Likely secondary to COPD exacerbation. Repeat chest x-ray did not show acute findings. EKG demonstrated sinus tachycardia with right bundle branch block; no ST segment elevation or depression noted. ProBNP is elevated to 1910 Troponins were in the indeterminate range and have trended downward. PE is considered; the patient is anticoagulated with subcutaneous heparin. She has no history of blood clots and there is no evidence of extremity edema. As the patient is much improved following escalation of steroid therapy and resumption of home dose of furosemide, will hold on CTA at this time. (3) Hypertension Is this a current diagnosis for this admission?: Yes Plan: The patient's home medications are continued; amlodipine and lisinopril (4) GERD (gastroesophageal reflux disease) Qualifiers: Esophagitis presence: esophagitis presence not specified Qualified Code(s) : K21.9 - Gastro-esophageal reflux disease without esophagitis Plan: The patient has been placed on Prevacid. 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 She did meet with palliative care services yesterday and is appreciative that they will continue to follow her as an outpatient. Will ask discharge planning to meet with the patient to ensure that she is receiving all services available to her. (6) Obesity Qualifiers: Obesity type: with alveolar hypoventilation Body mass index: BMI 31.0-31.9 Is this a current diagnosis for this admission?: Yes Plan: Will ask the registered dietitian to meet with the patient and make dietary recommendations. (7) Chronic back pain Qualifiers: Back pain location: low back pain Back pain laterality: unspecified Is this a current diagnosis for this admission?: Yes Plan: The patient reports chronic back pain that is managed by oxycodone as an outpatient. Review of the [place] controlled substance database shows that the last oxycodone prescription was written in February and that she has not had any other controlled substances prescribed since that time. We will encourage the patient to use Tylenol for pain and provide low-dose tramadol for breakthrough pain. Encourage nonpharmacological interventions such as ice, heat, repositioning, distraction. (8) CHF with left ventricular diastolic dysfunction, NYHA class 1 Is this a current diagnosis for this admission?: Yes Plan: Echocardiogram obtained on 08/14/17 demonstrated an LVEF greater than 60% with normal ventricular systolic function and a mild diastolic dysfunction. Troponins are reassuring. ProBNP is currently elevated to 1910; strain is likely secondary to COPD exacerbation. The patient is not currently receiving IV fluids. She is placed on a cardiac diet. Will monitor daily weights. Continue furosemide 20 mg daily. (9) Generalized weakness Is this a current diagnosis for this admission?: Yes Plan: We will ask physical therapy to evaluate and treat the patient. Have encouraged mobility; patient should get out of the bed daily and attempt walking in the hallway with assistance. - Time Time Spent with patient: 25-34 minutes Medications reviewed and adjusted accordingly: Yes Anticipated discharge: Home Within: within 36 hours
[2017-09-04] MEDS: TRAMADOL HCL 50 MG TABLET PO PRN (21:38)
[2017-09-05] MEDS: IPRATROPIUM/ALBUTEROL 0.5-2.5 MG/3 ML AMPUL NEB SCH ×4 (02:21→20:58)
[2017-09-05 05:37] LABS: HEMATOCRIT 31.8 % (36.0-47.0); HEMOGLOBIN 10.7 g/dL (12.0-15.5); MEAN CORPUSCULAR HEMOGLOBIN 31.7 pg (27.0-33.4); MEAN CORPUSCULAR HGB CONC 33.7 g/dL (32.0-36.0); MEAN CORPUSCULAR VOLUME 94 fl (80-97); PLATELET COUNT 189 10^3/uL (150-450); RED BLOOD COUNT 3.38 10^6/uL (3.72-5.28); RED CELL DISTRIBUTION WIDTH 14.5 % (11.5-14.0)
[2017-09-05] MEDS: HEPARIN SOD (PORCINE) 5,000 UNIT/ML 1 ML SYRINGE SUBCUT SCH ×3 (05:42→21:44)
[2017-09-05] MEDS: NYSTATIN TOPICAL POWDER 15 GM TP SCH ×3 (06:00→18:09)
[2017-09-05] MEDS: LEVOTHYROXINE SODIUM 0.088 MG TABLET PO SCH (06:00)
[2017-09-05] MEDS: DOXYCYCLINE HYCLATE 100 MG TABLET PO SCH ×2 (06:01→18:08)
[2017-09-05] MEDS: METHYLPREDNISOLONE INJ 40 MG/1 ML SDV IV SCH ×3 (06:01→21:44)
[2017-09-05] MEDS: LANSOPRAZOLE 30 MG TAB.RAP.DR PO SCH ×2 (06:01→18:07)
[2017-09-05 06:10] LABS: ANION GAP 6 (5-19); BLOOD UREA NITROGEN 25 mg/dL (7-20); CALCIUM 9.6 mg/dL (8.4-10.2); CARBON DIOXIDE 33 mmol/L (22-30); CHLORIDE 101 mmol/L (98-107); GLUCOSE 147 mg/dL (75-110); POTASSIUM 4.3 mmol/L (3.6-5.0); SODIUM 139.8 mmol/L (137-145)
[2017-09-05] MEDS: ALLOPURINOL 100 MG TABLET PO SCH (10:32)
[2017-09-05] MEDS: ASPIRIN 81 MG TABLET, ENT COATED PO SCH (10:32)
[2017-09-05] MEDS: AMLODIPINE BESYLATE 2.5 MG TABLET PO SCH (10:32)
[2017-09-05] MEDS: GUAIFENESIN 600 MG TABLET.SA PO SCH ×2 (10:32→21:44)
[2017-09-05] MEDS: LISINOPRIL 5 MG TABLET PO SCH (10:33)
[2017-09-05] MEDS: FUROSEMIDE 20 MG TABLET PO SCH (10:33)
[2017-09-05] MEDS: SERTRALINE HCL 50 MG TABLET PO SCH (10:35)
[2017-09-05] MEDS: TIOTROPIUM BROMIDE DPI 5 CAP/KIT (18 MCG/CAP) IH SCH (15:31)
--- NOTE | 2017-09-05 18:41 | PDOC PROGRESS REPORT ---
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 The patient is seen on morning rounds. She was found resting in bed eating breakfast on supplemental oxygen via nasal cannula at 3 L/min. she is fully awake, sitting upright, eating breakfast and conversational without pause. She denies dyspnea, fever, cough. She reports she is able to get out of bed with assistance to the chair. But states that she becomes very short of breath upon doing so. The patient reports that she is currently not undergoing chemotherapy for her small cell lung cancer or brain metastasis. She is currently receiving palliative care and assistance from home health nurse. Reason For Visit: COPD exacerbation Physical Exam Vital Signs: Temp Pulse Resp BP Pulse Ox 98.3 F 113 H 18 119/61 99 09/05/17 15:41 09/05/17 15:41 09/05/17 15:41 09/05/17 15:41 09/05/17 15:41 Intake & Output 09/04/17 09/05/17 09/06/17 06:59 06:59 06:59 Intake Total 990 1463 503 Output Total 200 Balance 990 1263 503 Weight 87.6 kg 86.5 kg General appearance: PRESENT: no acute distress Head exam: PRESENT: normocephalic Eye exam: PRESENT: conjunctiva pink Mouth exam: PRESENT: moist Teeth exam: PRESENT: poor dentation Respiratory exam: PRESENT: clear to auscultation jeff, decreased breath sounds Cardiovascular exam: PRESENT: +S1, +S2 Pulses: PRESENT: normal radial pulses, +1 pedal pulses bilateral GI/Abdominal exam: PRESENT: soft Extremities exam: PRESENT: +1 edema - anasarca Neurological exam: PRESENT: alert, awake, oriented to person, oriented to place , oriented to situation, abnormal gait - likely due to muscle atrophy and fatigue Results Laboratory Results: 09/05/17 04:58 09/05/17 04:58 09/05/17 09/05/17 04:58 04:58 WBC 5.0 RBC 3.38 L Hgb 10.7 L Hct 31.8 L MCV 94 MCH 31.7 MCHC 33.7 RDW 14.5 H Plt Count 189 Sodium 139.8 Potassium 4.3 Chloride 101 Carbon Dioxide 33 H Anion Gap 6 BUN 25 H Creatinine 0.76 Est GFR ( Amer) > 60 Est GFR (Non-Af Amer) > 60 Glucose 147 H Calcium 9.6 09/02/17 09/02/17 09/02/17 11:39 11:39 11:39 Creatine Kinase 23 L CK-MB (CK-2) 0.84 Troponin I 0.040 NT-Pro-B Natriuret Pep 1910 H 09/02/17 09/02/17 09/02/17 17:30 17:30 23:32 Creatine Kinase 26 L < 20 L CK-MB (CK-2) 1.11 Troponin I 0.036 NT-Pro-B Natriuret Pep 09/02/17 23:32 Creatine Kinase CK-MB (CK-2) 0.91 Troponin I 0.024 NT-Pro-B Natriuret Pep Impressions: Chest X-Ray 09/02/17 00:00 IMPRESSION: Stable, chronic changes. Assessment & Plan - Diagnosis (1) COPD (chronic obstructive pulmonary disease) Qualifiers: COPD type: chronic bronchitis Chronic bronchitis type: simple Qualified Code(s): J41.0 - Simple chronic bronchitis Is this a current diagnosis for this admission?: Yes Plan: Improving. Patient is on supplemental oxygen 3 LPM, which is what she uses at home. Patient receives scheduled duo nebs and Xopenex as needed. Continue home Spiriva. Will switch to p.o. prednisone. Continue Mucinex twice daily. (2) CHF with left ventricular diastolic dysfunction, NYHA class 1 Is this a current diagnosis for this admission?: Yes Plan: Echocardiogram from August 14, 2017 demonstrated left ventricular ejection fraction greater than 60% with normal ventricular systolic function and mild diastolic dysfunction.Pro BNP elevated to 1910, strain is likely secondary to COPD exacerbation. No IVF. Cardiac diet. 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 The patient resides at home and does have home health services. She did meet with palliative care and states that she does not wish to undergo chemotherapy treatment for her cancer. This was confirmed by her son. (4) GERD (gastroesophageal reflux disease) Qualifiers: Esophagitis presence: esophagitis presence not specified Qualified Code(s) : K21.9 - Gastro-esophageal reflux disease without esophagitis Is this a current diagnosis for this admission?: Yes Plan: The patient has been placed on Prevacid. (5) Hypertension Qualifiers: Hypertension type: essential hypertension Qualified Code(s): I10 - Essential (primary) hypertension Is this a current diagnosis for this admission?: Yes Plan: Continue patient's home medication, amlodipine and lisinopril. (6) COPD exacerbation Is this a current diagnosis for this admission?: Yes Plan: Currently on doxycycline for empiric coverage of bronchitis/PNA. Supplemental O2 to maintain SpO2>88%. Encourage BIPAP at night. Scheduled Duoneb and PRN Xopenex. Continue home Spiriva. Will transition from IV to PO steroids. Continue Mucinex BID. - Time Time Spent with patient: 25-34 minutes Medications reviewed and adjusted accordingly: Yes Anticipated discharge: Hospice Within: within 24 hours Disposition: discharge home with hospice - Inpatient Certification Based on my medical assessment, after consideration of the patient's comorbidities, presenting symptoms, or acuity I expect that the services needed warrant INPATIENT care.: Yes I certify that my determination is in accordance with my understanding of Medicare's requirements for reasonable and necessary INPATIENT services [42 CFR 412.3e].: Yes Medical Necessity: Need for Nebulizer Therapy and Monitoring of Response Post Hospital Care: D/C Maintenance Supervisor 2Nd Shift Documentation - Plan Summary Plan Summary: Ultimately, the goal is to get patient discharged from the hospital so she can go home with hospice care. After talking to her son briefly, he states that the patient has no desire to pursue chemotherapy for her SCLC. Prior to admission to the hospital, she was receiving intermittent assistance from a home health care provider
--- NOTE | 2017-09-05 22:52 | Progress Note ---
Provider Note Provider Note: Palliative Care Follow Up visit 09/05/17 1:45-2:10 PM Follow up visit with this 72 year old woman who is admitted with COPD exacerbation. She does have remote history of lung cancer but it has not been treated for the past couple of years, per patient and her son. She lives independently with her son checking on her and staying nights with her. She does use oxygen 24 hours, but she says she will not use Bipap or CPAP, here or at home because she cannot stand the mask. Mrs. Diallo is eating well, feeling stronger and is able to be up with her rollaider, per her report. She says she is ready to go home. She denies pain or constipation, She is coughing some but no dyspnea. She has had no fever and no loss appetite or sleep. Alert, oriented and in no distress. BS are clear with diminished sounds in bases. Heart regular S1S2. No edema extremities but much eccymosis on both arms and hands, especially left dorsal surface hand. Good facila symmetry and clear speech. I did discuss with her again about Palliative Care HURRICANE TRACKER visits at home if her outside provider will give the referral. She is not appropriate for hospice at this time. She does have home health and hopes it will continue. Mrs. Diallo refuses to go to rehab is a snf. She has had multiple hospitalizations and hopefully, if she has HURRICANE TRACKER to visit at home when she starts feeling worse, some admissions can be avoided. Patient still wants to be full code in spite of the fact she is resistant to using the Bipap mask. I would not expect her to be in the hospice philosophy of home care and comfort care instead of returning to the hospital when she declines. However, with time and frequent conversations, she may come the realize the reality of intubation and roasterman ventilator care. She denies needing any DME at home. She says her son helps her with her medications. Will hope to follow at home, will ask hospice liason to help in obtaining referral for home palliative care.
[2017-09-06] MEDS: IPRATROPIUM/ALBUTEROL 0.5-2.5 MG/3 ML AMPUL NEB SCH ×4 (01:55→19:39)
[2017-09-06] MEDS: DOXYCYCLINE HYCLATE 100 MG TABLET PO SCH ×2 (05:14→17:42)
[2017-09-06] MEDS: METHYLPREDNISOLONE INJ 40 MG/1 ML SDV IV SCH (05:14)
[2017-09-06] MEDS: HEPARIN SOD (PORCINE) 5,000 UNIT/ML 1 ML SYRINGE SUBCUT SCH ×3 (05:14→23:05)
[2017-09-06] MEDS: LEVOTHYROXINE SODIUM 0.088 MG TABLET PO SCH (05:14)
[2017-09-06] MEDS: LANSOPRAZOLE 30 MG TAB.RAP.DR PO SCH ×2 (05:14→17:42)
[2017-09-06] MEDS: NYSTATIN TOPICAL POWDER 15 GM TP SCH ×3 (06:12→17:42)
[2017-09-06] MEDS: SERTRALINE HCL 50 MG TABLET PO SCH (10:47)
[2017-09-06] MEDS: ALLOPURINOL 100 MG TABLET PO SCH (10:47)
[2017-09-06] MEDS: ASPIRIN 81 MG TABLET, ENT COATED PO SCH (10:47)
[2017-09-06] MEDS: GUAIFENESIN 600 MG TABLET.SA PO SCH ×2 (10:47→21:24)
[2017-09-06] MEDS: LISINOPRIL 5 MG TABLET PO SCH (10:47)
[2017-09-06] MEDS: AMLODIPINE BESYLATE 2.5 MG TABLET PO SCH (10:47)
[2017-09-06] MEDS: SALMETEROL XINAFOATE DISKUS 50 MCG/1 DOSE 28 DOSE IH SCH ×2 (10:48→21:24)
[2017-09-06] MEDS: FUROSEMIDE 20 MG TABLET PO SCH (10:48)
[2017-09-06] MEDS: TIOTROPIUM BROMIDE DPI 5 CAP/KIT (18 MCG/CAP) IH SCH (10:49)
[2017-09-06] MEDS: PREDNISONE 20 MG TABLET PO SCH ×2 (14:49→21:24)
[2017-09-06] MEDS: TRAMADOL HCL 50 MG TABLET PO PRN (14:49)
--- NOTE | 2017-09-06 17:19 | PDOC PROGRESS REPORT ---
Subjective Progress Note for:: 09/06/17 Subjective:: This is a 72-year-old female with a past medical history of small cell lung carcinoma, home oxygen dependent, COPD, chronic respiratory failure, obstructive sleep apnea, chronic bronchitis, generalized debility, frequent falls, and dementia with recurrent hospital admissions who was admitted 2017. The patient was seen on morning rounds. She was found resting in bed eating breakfast on supplemental oxygen via nasal cannula at 2 L/min (her home dose). She is fully awake, sitting upright and conversational. She does need to pause in between sentences to take a breath, although patient denies dyspnea, fever, cough. Her wheezing has worsened this morning but patient states she is ready to go home. The patient reports that she is currently not undergoing chemotherapy for her small cell lung cancer or brain metastasis. She is currently receiving palliative care and assistance from a home health nurse. She is very adamant that she does not want to go to a usp facility post discharge. The agency that is in charge of her home health has told her case assistant that the patient is not safe to be at home and care for herself. Reason For Visit: EXAC COPD Physical Exam Vital Signs: Temp Pulse Resp BP Pulse Ox 98.5 F 105 H 22 H 120/67 100 09/06/17 16:17 09/06/17 16:17 09/06/17 16:17 09/06/17 16:17 09/06/17 16:17 Intake & Output 09/05/17 09/06/17 09/07/17 06:59 06:59 06:59 Intake Total 1463 703 Output Total 200 Balance 1263 703 Weight 86.5 kg 86.7 kg General appearance: PRESENT: no acute distress, cooperative Head exam: PRESENT: normocephalic Eye exam: PRESENT: conjunctiva pink Mouth exam: PRESENT: moist Teeth exam: PRESENT: poor dentation Respiratory exam: PRESENT: wheezes Cardiovascular exam: PRESENT: +S1, +S2 Pulses: PRESENT: +1 pedal pulses bilateral GI/Abdominal exam: PRESENT: soft Rectal exam: PRESENT: deferred Extremities exam: PRESENT: full ROM Musculoskeletal exam: PRESENT: full ROM Neurological exam: PRESENT: alert, awake Skin exam: PRESENT: dry Results Laboratory Results: 09/05/17 04:58 09/05/17 04:58 09/02/17 09/02/17 09/02/17 11:39 11:39 11:39 Creatine Kinase 23 L CK-MB (CK-2) 0.84 Troponin I 0.040 NT-Pro-B Natriuret Pep 1910 H 09/02/17 09/02/17 09/02/17 17:30 17:30 23:32 Creatine Kinase 26 L < 20 L CK-MB (CK-2) 1.11 Troponin I 0.036 NT-Pro-B Natriuret Pep 09/02/17 23:32 Creatine Kinase CK-MB (CK-2) 0.91 Troponin I 0.024 NT-Pro-B Natriuret Pep Impressions: Chest X-Ray 09/02/17 00:00 IMPRESSION: Stable, chronic changes. Assessment & Plan - Diagnosis (1) COPD (chronic obstructive pulmonary disease) Qualifiers: COPD type: chronic bronchitis Chronic bronchitis type: simple Qualified Code(s): J41.0 - Simple chronic bronchitis Is this a current diagnosis for this admission?: Yes Plan: Patient is on supplemental oxygen 2 LPM, which is what she uses at home. Patient receives scheduled duo nebs and Xopenex as needed. Continue home Spiriva. Switched to p.o. prednisone yesterday. Continue Mucinex twice daily. (2) CHF with left ventricular diastolic dysfunction, NYHA class 1 Is this a current diagnosis for this admission?: Yes Plan: Echocardiogram from August 14, 2017 demonstrated left ventricular ejection fraction greater than 60% with normal ventricular systolic function and mild diastolic dysfunction.Pro BNP elevated to 1910, strain is likely secondary to COPD exacerbation. No IVF. Cardiac diet. 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 The patient resides at home and does have home health services. She did meet with palliative care and states that she does not wish to undergo chemotherapy treatment for her cancer, nor does she want to live in assisted living. This was confirmed by her son. (4) GERD (gastroesophageal reflux disease) Qualifiers: Esophagitis presence: esophagitis presence not specified Qualified Code(s) : K21.9 - Gastro-esophageal reflux disease without esophagitis Is this a current diagnosis for this admission?: Yes Plan: The patient has been placed on Prevacid. (5) Hypertension Qualifiers: Hypertension type: essential hypertension Qualified Code(s): I10 - Essential (primary) hypertension Is this a current diagnosis for this admission?: Yes Plan: Well controlled. Continue patient's home medication, amlodipine and lisinopril. (6) COPD exacerbation Is this a current diagnosis for this admission?: Yes Plan: Currently on doxycycline for empiric coverage of bronchitis/PNA. Supplemental O2 to maintain SpO2>88%. Scheduled Duoneb and PRN Xopenex. Continue home Spiriva. Transitioned to PO steroids. Continue Mucinex BID. (7) Dementia Is this a current diagnosis for this admission?: Yes Plan: Intermittent episodes of dementia. Confirmed by bedside RN. Requesting mental health assessment from Dr. Stewart to determine if patient has the capacity to make medical decisions for herself. APS has been contacted by our case management team due to the fact that the home health agency for this patient states that the patient is not safe to be at home caring herself. Closest family member is patient's son who lives 2 hours away. Patient lives with her female roommate but is not designated caregiver - Time Time Spent with patient: 35 or more minutes Medications reviewed and adjusted accordingly: Yes Anticipated discharge: SNF Within: within 48 hours - Inpatient Certification Based on my medical assessment, after consideration of the patient's comorbidities, presenting symptoms, or acuity I expect that the services needed warrant INPATIENT care.: Yes I certify that my determination is in accordance with my understanding of Medicare's requirements for reasonable and necessary INPATIENT services [42 CFR 412.3e].: Yes Medical Necessity: Need for Nebulizer Therapy and Monitoring of Response
[2017-09-07] MEDS: NYSTATIN TOPICAL POWDER 15 GM TP SCH ×5 (00:46→22:51)
[2017-09-07] MEDS: IPRATROPIUM/ALBUTEROL 0.5-2.5 MG/3 ML AMPUL NEB SCH ×4 (02:13→21:19)
[2017-09-07] MEDS: PREDNISONE 20 MG TABLET PO SCH ×3 (05:20→22:06)
[2017-09-07] MEDS: ACETAMINOPHEN 325 MG TABLET PO PRN (05:20)
[2017-09-07] MEDS: LANSOPRAZOLE 30 MG TAB.RAP.DR PO SCH ×2 (05:21→17:35)
[2017-09-07] MEDS: LEVOTHYROXINE SODIUM 0.088 MG TABLET PO SCH (05:22)
[2017-09-07] MEDS: DOXYCYCLINE HYCLATE 100 MG TABLET PO SCH (05:22)
[2017-09-07] MEDS: HEPARIN SOD (PORCINE) 5,000 UNIT/ML 1 ML SYRINGE SUBCUT SCH ×3 (06:22→22:06)
[2017-09-07] MEDS: SERTRALINE HCL 50 MG TABLET PO SCH (08:03)
[2017-09-07] MEDS: FUROSEMIDE 20 MG TABLET PO SCH (10:56)
[2017-09-07] MEDS: GUAIFENESIN 600 MG TABLET.SA PO SCH ×2 (10:56→22:06)
[2017-09-07] MEDS: ASPIRIN 81 MG TABLET, ENT COATED PO SCH (10:57)
[2017-09-07] MEDS: AMLODIPINE BESYLATE 2.5 MG TABLET PO SCH (10:57)
[2017-09-07] MEDS: LISINOPRIL 5 MG TABLET PO SCH (10:57)
[2017-09-07] MEDS: SALMETEROL XINAFOATE DISKUS 50 MCG/1 DOSE 28 DOSE IH SCH ×2 (10:57→22:06)
[2017-09-07] MEDS: ALLOPURINOL 100 MG TABLET PO SCH (10:57)
[2017-09-07 10:59] LABS: HEMATOCRIT 34.7 % (36.0-47.0); HEMOGLOBIN 11.6 g/dL (12.0-15.5); MEAN CORPUSCULAR HEMOGLOBIN 31.9 pg (27.0-33.4); MEAN CORPUSCULAR HGB CONC 33.3 g/dL (32.0-36.0); MEAN CORPUSCULAR VOLUME 96 fl (80-97); PLATELET COUNT 245 10^3/uL (150-450); RED BLOOD COUNT 3.63 10^6/uL (3.72-5.28); RED CELL DISTRIBUTION WIDTH 14.6 % (11.5-14.0); WHITE BLOOD COUNT 6.1 10^3/uL (4.0-10.5)
[2017-09-07 11:12] LABS: ANION GAP 11 (5-19); BLOOD UREA NITROGEN 26 mg/dL (7-20); CALCIUM 9.2 mg/dL (8.4-10.2); CARBON DIOXIDE 28 mmol/L (22-30); CHLORIDE 98 mmol/L (98-107); GLUCOSE 326 mg/dL (75-110); PHOSPHORUS 3.8 mg/dL (2.5-4.5); POTASSIUM 4.4 mmol/L (3.6-5.0); SODIUM 137.4 mmol/L (137-145)
[2017-09-07 11:23] LABS: ABSOLUTE LYMPHOCYTES# (MANUAL) 0.2 10^3/uL (0.5-4.7); ABSOLUTE MONOCYTES # (MANUAL) 0.1 10^3/uL (0.1-1.4); ABSOLUTE NEUTROPHILS# (MANUAL) 5.8 10^3/uL (1.7-8.2); ANISOCYTOSIS SLIGHT; BASOPHILS % (MANUAL) 0 % (0-2); EOSINOPHILS % (MANUAL) 0 % (0-6); LYMPHOCYTES % (MANUAL) 4 % (13-45); MONOCYTES % (MANUAL) 1 % (3-13); OVALOCYTES 1+; POIKILOCYTOSIS 1+; SEGMENTED NEUTROPHILS % (MAN) 95 % (42-78); TOTAL CELLS COUNTED 100
[2017-09-07 11:24] LABS: PLATELET COMMENT ADEQUATE
[2017-09-07] MEDS: TIOTROPIUM BROMIDE DPI 5 CAP/KIT (18 MCG/CAP) IH SCH (14:31)
[2017-09-08] MEDS: IPRATROPIUM/ALBUTEROL 0.5-2.5 MG/3 ML AMPUL NEB SCH ×4 (01:30→22:08)
[2017-09-08] MEDS: HEPARIN SOD (PORCINE) 5,000 UNIT/ML 1 ML SYRINGE SUBCUT SCH ×3 (06:49→22:25)
[2017-09-08] MEDS: PREDNISONE 20 MG TABLET PO SCH ×3 (06:49→22:20)
[2017-09-08] MEDS: LEVOTHYROXINE SODIUM 0.088 MG TABLET PO SCH (06:49)
[2017-09-08] MEDS: LANSOPRAZOLE 30 MG TAB.RAP.DR PO SCH ×2 (06:49→17:13)
[2017-09-08] MEDS: NYSTATIN TOPICAL POWDER 15 GM TP SCH ×3 (06:50→17:14)
[2017-09-08] MEDS: AMLODIPINE BESYLATE 2.5 MG TABLET PO SCH (11:11)
[2017-09-08] MEDS: GUAIFENESIN 600 MG TABLET.SA PO SCH ×2 (11:11→22:22)
[2017-09-08] MEDS: ALLOPURINOL 100 MG TABLET PO SCH (11:11)
[2017-09-08] MEDS: LISINOPRIL 5 MG TABLET PO SCH (11:12)
[2017-09-08] MEDS: SERTRALINE HCL 50 MG TABLET PO SCH (11:12)
[2017-09-08] MEDS: ASPIRIN 81 MG TABLET, ENT COATED PO SCH (11:13)
[2017-09-08] MEDS: FUROSEMIDE 20 MG TABLET PO SCH (11:13)
[2017-09-08] MEDS: SALMETEROL XINAFOATE DISKUS 50 MCG/1 DOSE 28 DOSE IH SCH ×2 (11:14→22:24)
[2017-09-08] MEDS: TIOTROPIUM BROMIDE DPI 5 CAP/KIT (18 MCG/CAP) IH SCH (11:14)
[2017-09-08] MEDS: TRAMADOL HCL 50 MG TABLET PO PRN (14:45)
--- NOTE | 2017-09-08 16:21 | PSYCHOLOGICAL NOTE ---
Psych Note - Psych Note Psych Note: Completed Chart review and [id number] questioning for capacity screening. There are concerns for capacity. Actual report will take the place of this once reviewed by Dr. Stewart. Impression/Plan: RECOMMENDATIONS: 1. A responsible and reliable Guardian is recommended to manage medical, financial, legal, and personal affairs. 2. Psychiatric consultation with a provider is recommended to manage behavioral symptoms that are often associated with dementia. 3. Neurological consultation with a provider is recommended since Head CT language suggest chronic neuro-degenerative process which will worsen with age. 4. Driving privileges should be evaluated should patient choose to drive again. 5. Patient would benefit from a structured environment with routine and 24 hour supervision by medical staff. Medication recommendations made by the [facility] psychiatric medical provider includes: Discontinue Zoloft 50MG PO QD Add Depakote DR 500MG PO BID Add Buspar 5MG PO QAM Add Buspar 10MG PO QHS
--- NOTE | 2017-09-08 16:38 | PDOC PROGRESS REPORT ---
Subjective Progress Note for:: 09/08/17 Subjective:: This is a 72-year-old female with a past medical history of small cell lung carcinoma, home oxygen dependent, COPD, chronic respiratory failure, obstructive sleep apnea, chronic bronchitis, generalized debility, frequent falls, and dementia with recurrent hospital admissions who was admitted 2017. The patient was seen on morning rounds. She was found resting in bed eating breakfast on supplemental oxygen via nasal cannula at 2 L/min (her home dose). She is fully awake, sitting upright and conversational. She does need to pause in between sentences to take a breath, although patient denies dyspnea, fever, cough. Her wheezing has worsened this morning but patient states she is ready to go home. The patient reports that she is currently not undergoing chemotherapy for her small cell lung cancer or brain metastasis. She is currently receiving palliative care and assistance from a home health nurse. She is very adamant that she does not want to go to a jail facility post discharge. The agency that is in charge of her home health has told her casework supervisor that the patient is not safe to be at home and care for herself. Reason For Visit: EXAC COPD Physical Exam Vital Signs: Temp Pulse Resp BP Pulse Ox 98.8 F 104 H 18 148/82 H 93 09/08/17 08:07 09/08/17 13:45 09/08/17 13:45 09/08/17 08:07 09/08/17 13:45 Intake & Output 09/07/17 09/08/17 09/09/17 06:59 06:59 06:59 Intake Total 790 1780 Output Total 700 Balance 790 1080 Weight 86.3 kg 90.2 kg General appearance: PRESENT: no acute distress Head exam: PRESENT: normocephalic Eye exam: PRESENT: conjunctiva pink Mouth exam: PRESENT: moist Teeth exam: PRESENT: poor dentation Neck exam: PRESENT: full ROM Respiratory exam: PRESENT: wheezes Cardiovascular exam: PRESENT: +S1, +S2 Pulses: PRESENT: normal radial pulses Vascular exam: PRESENT: normal capillary refill GI/Abdominal exam: PRESENT: soft Rectal exam: PRESENT: deferred Extremities exam: PRESENT: +1 edema Musculoskeletal exam: PRESENT: full ROM Neurological exam: PRESENT: alert, awake Psychiatric exam: PRESENT: appropriate affect, other - +dementia Results Laboratory Results: 09/07/17 10:40 09/07/17 10:40 09/02/17 09/02/17 09/02/17 11:39 11:39 11:39 Creatine Kinase 23 L CK-MB (CK-2) 0.84 Troponin I 0.040 NT-Pro-B Natriuret Pep 1910 H 09/02/17 09/02/17 09/02/17 17:30 17:30 23:32 Creatine Kinase 26 L < 20 L CK-MB (CK-2) 1.11 Troponin I 0.036 NT-Pro-B Natriuret Pep 09/02/17 23:32 Creatine Kinase CK-MB (CK-2) 0.91 Troponin I 0.024 NT-Pro-B Natriuret Pep Impressions: Chest X-Ray 09/02/17 00:00 IMPRESSION: Stable, chronic changes. Status: Imported from PACS Assessment & Plan - Diagnosis (1) COPD (chronic obstructive pulmonary disease) Qualifiers: COPD type: chronic bronchitis Chronic bronchitis type: simple Qualified Code(s): J41.0 - Simple chronic bronchitis Is this a current diagnosis for this admission?: Yes Plan: Patient is on supplemental oxygen 2 LPM, which is what she uses at home. Patient receives scheduled duo nebs and Xopenex as needed. Continue home Spiriva. Switched to p.o. prednisone yesterday. Continue Mucinex twice daily. (2) CHF with left ventricular diastolic dysfunction, NYHA class 1 Is this a current diagnosis for this admission?: Yes Plan: Echocardiogram from August 14, 2017 demonstrated left ventricular ejection fraction greater than 60% with normal ventricular systolic function and mild diastolic dysfunction.Pro BNP elevated to 1910, strain is likely secondary to COPD exacerbation. No IVF. Cardiac diet. 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 The patient resides at home and does have home health services. She did meet with palliative care and states that she does not wish to undergo chemotherapy treatment for her cancer, nor does she want to live in assisted living. This was confirmed by her son. (4) GERD (gastroesophageal reflux disease) Qualifiers: Esophagitis presence: esophagitis presence not specified Qualified Code(s) : K21.9 - Gastro-esophageal reflux disease without esophagitis Is this a current diagnosis for this admission?: Yes Plan: The patient has been placed on Prevacid. (5) Hypertension Qualifiers: Hypertension type: essential hypertension Qualified Code(s): I10 - Essential (primary) hypertension Is this a current diagnosis for this admission?: Yes Plan: Well controlled. Continue patient's home medication, amlodipine and lisinopril. (6) COPD exacerbation Is this a current diagnosis for this admission?: Yes Plan: Currently on doxycycline for empiric coverage of bronchitis/PNA. Supplemental O2 to maintain SpO2>88%. Scheduled Duoneb and PRN Xopenex. Continue home Spiriva. Transitioned to PO steroids. Continue Mucinex BID. (7) Dementia Is this a current diagnosis for this admission?: Yes Plan: Intermittent episodes of dementia. Confirmed by bedside RN. Pending mental health assessment from Dr. Stewart to determine if patient has the capacity to make medical decisions for herself. APS has been contacted by our case management team due to the fact that the home health agency for this patient states that the patient is not safe to be at home caring herself. Closest family member is patient's son who lives 2 hours away. Patient lives with 2-3 roomates but none are designated caregiver - Time Time Spent with patient: 25-34 minutes Medications reviewed and adjusted accordingly: Yes Anticipated discharge: Home Within: within 48 hours - Inpatient Certification Based on my medical assessment, after consideration of the patient's comorbidities, presenting symptoms, or acuity I expect that the services needed warrant INPATIENT care.: Yes I certify that my determination is in accordance with my understanding of Medicare's requirements for reasonable and necessary INPATIENT services [42 CFR 412.3e].: Yes Medical Necessity: Need for Nebulizer Therapy and Monitoring of Response - Plan Summary Plan Summary: Pending psych evaluation to determine patient's capacity to make medical decisions for herself, the patient will either be discharged to home or a jail facility.
[2017-09-09] MEDS: IPRATROPIUM/ALBUTEROL 0.5-2.5 MG/3 ML AMPUL NEB SCH ×4 (02:23→20:34)
[2017-09-09] MEDS: LEVOTHYROXINE SODIUM 0.088 MG TABLET PO SCH (05:34)
[2017-09-09] MEDS: LANSOPRAZOLE 30 MG TAB.RAP.DR PO SCH ×2 (05:35→17:13)
[2017-09-09] MEDS: PREDNISONE 20 MG TABLET PO SCH ×3 (05:35→21:15)
[2017-09-09] MEDS: HEPARIN SOD (PORCINE) 5,000 UNIT/ML 1 ML SYRINGE SUBCUT SCH ×3 (05:35→21:14)
[2017-09-09] MEDS: NYSTATIN TOPICAL POWDER 15 GM TP SCH ×4 (05:36→17:13)
[2017-09-09] MEDS: SERTRALINE HCL 50 MG TABLET PO SCH (09:24)
[2017-09-09] MEDS: GUAIFENESIN 600 MG TABLET.SA PO SCH ×2 (09:24→21:14)
[2017-09-09] MEDS: FUROSEMIDE 20 MG TABLET PO SCH (09:24)
[2017-09-09] MEDS: LISINOPRIL 5 MG TABLET PO SCH (09:25)
[2017-09-09] MEDS: ASPIRIN 81 MG TABLET, ENT COATED PO SCH (09:25)
[2017-09-09] MEDS: AMLODIPINE BESYLATE 2.5 MG TABLET PO SCH (09:25)
[2017-09-09] MEDS: ALLOPURINOL 100 MG TABLET PO SCH (09:25)
[2017-09-09] MEDS: SALMETEROL XINAFOATE DISKUS 50 MCG/1 DOSE 28 DOSE IH SCH ×2 (09:27→21:14)
[2017-09-09] MEDS: TIOTROPIUM BROMIDE DPI 5 CAP/KIT (18 MCG/CAP) IH SCH (09:28)
--- NOTE | 2017-09-09 11:12 | PSYCHOLOGICAL NOTE ---
Psych Note - Psych Note Psych Note: Reason for consult: mental health exam Patient was orientated to person, place and time. Patient is demonstrating some concerning issues with cognitive functioning. While patient was able to correctly identify emergency actions such as calling 911 if there was a fire and shutting off the water valve if the house was flooding, patient demonstrated a need for a capacity evaluation. Patient disclosed that she feels she may need something for depression because "sometimes I think I am losing my mind because I do not know where I am at." Patient also disclosed that her son 2 years previous would like to reports that he walked up to her and told her that he needed to tell her something. She continues state that her son told her that he was leaving today and not coming back and that he wanted to say I love you and that he was sorry for the things he said and then "boom" he fell to the floor right in front of her freezer. Patient was concerned she has to walk past the freezer every day. Patient discloses that it was medical and denies her son committing suicide. Patient then disclosed that in that same timeframe a friend that was living with her also . She disclosed that he got out of the shower and told her that he was going to lay down for little bit. She stated that she "waited for quite a while" and when she went into the bedroom she found him "he was already turning green....right there in the bed.. my granddaughter now sleeps on that bed... I would never sleep in bed." Patient is alert and orientated to person and place. Mood is euthymic with congruent affect as evidenced by openly engaging with clinician laughing and smiling. Patient denies suicidal homicidal ideation. Patient's cognitive functioning is impaired. Eye contact was well-maintained. Conversational speech was within normal rate, tone and prosody. Patient will receive a capacity evaluation
--- NOTE | 2017-09-09 17:18 | PDOC PROGRESS REPORT ---
Subjective Progress Note for:: 09/09/17 Subjective:: This is a 72-year-old female with a past medical history of small cell lung carcinoma, home oxygen dependent, COPD, chronic respiratory failure, obstructive sleep apnea, chronic bronchitis, generalized debility, frequent falls, and dementia with recurrent hospital admissions who was admitted 2017. The patient was seen on morning rounds. She was found resting in bed eating breakfast on supplemental oxygen via nasal cannula at 2 L/min (her home dose). She is fully awake, sitting upright and conversational. She does need to pause in between sentences to take a breath, although patient denies dyspnea, fever, cough. Her wheezing has worsened this morning but patient states she is ready to go home. The patient reports that she is currently not undergoing chemotherapy for her small cell lung cancer or brain metastasis. She is currently receiving palliative care and assistance from a home health nurse. She is very adamant that she does not want to go to a group home facility post discharge. The agency that is in charge of her home health has told her child support case officer that the patient is not safe to be at home and care for herself. Reason For Visit: EXAC COPD Physical Exam Vital Signs: Temp Pulse Resp BP Pulse Ox 98.7 F 69 20 120/58 L 93 09/09/17 16:11 09/09/17 16:11 09/09/17 16:11 09/09/17 16:11 09/09/17 16:11 Intake & Output 09/08/17 09/09/17 09/10/17 06:59 06:59 06:59 Intake Total 1780 570 Output Total 700 300 Balance 1080 270 Weight 90.2 kg 87.6 kg General appearance: PRESENT: no acute distress, well-developed, well-nourished Head exam: PRESENT: atraumatic, normocephalic Eye exam: PRESENT: conjunctiva pink Mouth exam: PRESENT: moist Teeth exam: PRESENT: poor dentation Neck exam: PRESENT: full ROM Respiratory exam: PRESENT: wheezes Cardiovascular exam: PRESENT: +S1, +S2 Pulses: PRESENT: normal radial pulses Rectal exam: PRESENT: deferred Extremities exam: PRESENT: full ROM Musculoskeletal exam: PRESENT: full ROM Neurological exam: PRESENT: alert - Slightly demented, awake Psychiatric exam: PRESENT: appropriate affect Results Laboratory Results: 09/07/17 10:40 09/07/17 10:40 09/02/17 09/02/17 09/02/17 11:39 11:39 11:39 Creatine Kinase 23 L CK-MB (CK-2) 0.84 Troponin I 0.040 NT-Pro-B Natriuret Pep 1910 H 09/02/17 09/02/17 09/02/17 17:30 17:30 23:32 Creatine Kinase 26 L < 20 L CK-MB (CK-2) 1.11 Troponin I 0.036 NT-Pro-B Natriuret Pep 09/02/17 23:32 Creatine Kinase CK-MB (CK-2) 0.91 Troponin I 0.024 NT-Pro-B Natriuret Pep Impressions: Chest X-Ray 09/02/17 00:00 IMPRESSION: Stable, chronic changes. Assessment & Plan - Diagnosis (1) COPD (chronic obstructive pulmonary disease) Qualifiers: COPD type: chronic bronchitis Chronic bronchitis type: simple Qualified Code(s): J41.0 - Simple chronic bronchitis Is this a current diagnosis for this admission?: Yes Plan: Patient is on supplemental oxygen 2 LPM, which is what she uses at home. Patient receives scheduled duo nebs and Xopenex as needed. Continue home Spiriva. Switched to p.o. prednisone yesterday. Continue Mucinex twice daily. (2) CHF with left ventricular diastolic dysfunction, NYHA class 1 Is this a current diagnosis for this admission?: Yes Plan: Echocardiogram from August 14, 2017 demonstrated left ventricular ejection fraction greater than 60% with normal ventricular systolic function and mild diastolic dysfunction.Pro BNP elevated to 1910, strain is likely secondary to COPD exacerbation. No IVF. Cardiac diet. 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 The patient resides at home and does have home health services. She did meet with palliative care and states that she does not wish to undergo chemotherapy treatment for her cancer, nor does she want to live in assisted living. This was confirmed by her son. (4) GERD (gastroesophageal reflux disease) Qualifiers: Esophagitis presence: esophagitis presence not specified Qualified Code(s) : K21.9 - Gastro-esophageal reflux disease without esophagitis Is this a current diagnosis for this admission?: Yes Plan: The patient has been placed on Prevacid. (5) Hypertension Qualifiers: Hypertension type: essential hypertension Qualified Code(s): I10 - Essential (primary) hypertension Is this a current diagnosis for this admission?: Yes Plan: Well controlled. Continue patient's home medication, amlodipine and lisinopril. (6) COPD exacerbation Is this a current diagnosis for this admission?: Yes Plan: Currently on doxycycline for empiric coverage of bronchitis/PNA. Supplemental O2 to maintain SpO2>88%. Scheduled Duoneb and PRN Xopenex. Continue home Spiriva. Transitioned to PO steroids. Continue Mucinex BID. (7) Dementia Is this a current diagnosis for this admission?: Yes Plan: Intermittent episodes of dementia. Confirmed by bedside RN. Pending mental health assessment from Dr. Stewart to determine if patient has the capacity to make medical decisions for herself. APS has been contacted by our case management team due to the fact that the home health agency for this patient states that the patient is not safe to be at home caring herself. Closest family member is patient's son who lives 2 hours away. Patient lives with 2-3 roomates but none are designated caregiver - Time Time Spent with patient: 15-24 minutes Medications reviewed and adjusted accordingly: Yes Anticipated discharge: Acute Rehab Within: within 48 hours - Inpatient Certification Based on my medical assessment, after consideration of the patient's comorbidities, presenting symptoms, or acuity I expect that the services needed warrant INPATIENT care.: Yes I certify that my determination is in accordance with my understanding of Medicare's requirements for reasonable and necessary INPATIENT services [42 CFR 412.3e].: Yes Medical Necessity: Other - Need for assisted living
[2017-09-10] MEDS: NYSTATIN TOPICAL POWDER 15 GM TP SCH ×4 (00:47→17:34)
[2017-09-10] MEDS: IPRATROPIUM/ALBUTEROL 0.5-2.5 MG/3 ML AMPUL NEB SCH ×4 (02:22→21:14)
[2017-09-10] MEDS: LEVOTHYROXINE SODIUM 0.088 MG TABLET PO SCH (05:07)
[2017-09-10] MEDS: LANSOPRAZOLE 30 MG TAB.RAP.DR PO SCH ×2 (05:08→17:34)
[2017-09-10] MEDS: PREDNISONE 20 MG TABLET PO SCH ×2 (05:08→22:43)
[2017-09-10] MEDS: HEPARIN SOD (PORCINE) 5,000 UNIT/ML 1 ML SYRINGE SUBCUT SCH ×3 (05:09→22:43)
[2017-09-10] MEDS: GUAIFENESIN 600 MG TABLET.SA PO SCH ×2 (09:36→22:43)
[2017-09-10] MEDS: LISINOPRIL 5 MG TABLET PO SCH (09:37)
[2017-09-10] MEDS: AMLODIPINE BESYLATE 2.5 MG TABLET PO SCH (09:37)
[2017-09-10] MEDS: ASPIRIN 81 MG TABLET, ENT COATED PO SCH (09:37)
[2017-09-10] MEDS: FUROSEMIDE 20 MG TABLET PO SCH (09:37)
[2017-09-10] MEDS: TIOTROPIUM BROMIDE DPI 5 CAP/KIT (18 MCG/CAP) IH SCH (09:38)
[2017-09-10] MEDS: SALMETEROL XINAFOATE DISKUS 50 MCG/1 DOSE 28 DOSE IH SCH ×2 (09:38→22:43)
[2017-09-10] MEDS: ALLOPURINOL 100 MG TABLET PO SCH (09:38)
[2017-09-10] MEDS: SERTRALINE HCL 50 MG TABLET PO SCH (09:38)
--- NOTE | 2017-09-10 12:52 | PDOC PROGRESS REPORT ---
Subjective Progress Note for:: 09/10/17 Subjective:: This is a 72-year-old female with a past medical history of small cell lung carcinoma, home oxygen dependent, COPD, chronic respiratory failure, obstructive sleep apnea, chronic bronchitis, generalized debility, frequent falls, and dementia with recurrent hospital admissions who was admitted 2017. The patient was seen on morning rounds. She was found resting in bed eating breakfast on supplemental oxygen via nasal cannula at 2 L/min (her home dose). She is fully awake, sitting upright and conversational. She does need to pause in between sentences to take a breath, although patient denies dyspnea, fever, cough. Her wheezing has worsened this morning but patient states she is ready to go home. The patient reports that she is currently not undergoing chemotherapy for her small cell lung cancer or brain metastasis. She is currently receiving palliative care and assistance from a home health nurse. She is very adamant that she does not want to go to a retirement facility post discharge. The agency that is in charge of her home health has told her disability case manager that the patient is not safe to be at home and care for herself. Reason For Visit: COPD exacerbation Physical Exam Vital Signs: Temp Pulse Resp BP Pulse Ox 98.5 F 101 H 20 144/86 H 98 09/10/17 07:39 09/10/17 08:37 09/10/17 08:37 09/10/17 07:39 09/10/17 08:37 Intake & Output 09/09/17 09/10/17 09/11/17 06:59 06:59 06:59 Intake Total 570 1450 Output Total 300 Balance 270 1450 Weight 87.6 kg 90.3 kg Results Laboratory Results: 09/07/17 10:40 09/07/17 10:40 09/02/17 09/02/17 09/02/17 11:39 11:39 11:39 Creatine Kinase 23 L CK-MB (CK-2) 0.84 Troponin I 0.040 NT-Pro-B Natriuret Pep 1910 H 09/02/17 09/02/17 09/02/17 17:30 17:30 23:32 Creatine Kinase 26 L < 20 L CK-MB (CK-2) 1.11 Troponin I 0.036 NT-Pro-B Natriuret Pep 09/02/17 23:32 Creatine Kinase CK-MB (CK-2) 0.91 Troponin I 0.024 NT-Pro-B Natriuret Pep Impressions: Chest X-Ray 09/02/17 00:00 IMPRESSION: Stable, chronic changes. Status: Imported from PACS Assessment & Plan - Diagnosis (1) COPD (chronic obstructive pulmonary disease) Qualifiers: COPD type: chronic bronchitis Chronic bronchitis type: simple Qualified Code(s): J41.0 - Simple chronic bronchitis Is this a current diagnosis for this admission?: Yes Plan: Patient is on supplemental oxygen as needed, when sitting in bed she does not alway use it. Patient receives scheduled duo nebs and Xopenex as needed. Continue home Spiriva. Switched to p.o. prednisone / now starting taper. Continue Mucinex twice daily. (2) CHF with left ventricular diastolic dysfunction, NYHA class 1 Is this a current diagnosis for this admission?: Yes Plan: Echocardiogram from August 14, 2017 demonstrated left ventricular ejection fraction greater than 60% with normal ventricular systolic function and mild diastolic dysfunction.Pro BNP elevated to 1910, strain is likely secondary to COPD exacerbation. No IVF. Cardiac diet. 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 The patient resides at home and does have home health services. She did meet with palliative care and states that she does not wish to undergo chemotherapy treatment for her cancer, nor does she want to live in assisted living. This was confirmed by her son. (4) GERD (gastroesophageal reflux disease) Qualifiers: Esophagitis presence: esophagitis presence not specified Qualified Code(s) : K21.9 - Gastro-esophageal reflux disease without esophagitis Is this a current diagnosis for this admission?: Yes Plan: The patient has been placed on Prevacid. (5) Hypertension Qualifiers: Hypertension type: essential hypertension Qualified Code(s): I10 - Essential (primary) hypertension Is this a current diagnosis for this admission?: Yes Plan: Well controlled. Continue patient's home medication, amlodipine and lisinopril. (6) COPD exacerbation Is this a current diagnosis for this admission?: Yes Plan: Supplemental O2 as needed to maintain SpO2>88%. Scheduled Duoneb and PRN Xopenex. Continue home Spiriva. Transitioned to PO steroids / now starting taper. Continue Mucinex BID. (7) Dementia Qualifiers: Dementia type: unspecified type Dementia behavioral disturbance: without behavioral disturbance Qualified Code(s): F03.90 - Unspecified dementia without behavioral disturbance Is this a current diagnosis for this admission?: Yes Plan: Intermittent episodes of dementia. Confirmed by bedside RN and client renewal specialist. Pending mental health assessment from Dr. Stewart to determine if patient has the capacity to make medical decisions for herself. APS has been contacted by our case management team due to the fact that the home health agency for this patient states that the patient is not safe to be at home caring herself. Closest family member is patient's son who lives 2 hours away. Patient lives with 2-3 roomates but none are designated caregiver - Time Time Spent with patient: Less than 15 minutes Medications reviewed and adjusted accordingly: Yes Anticipated discharge: Other - currently being decided by APS and case management - Inpatient Certification Based on my medical assessment, after consideration of the patient's comorbidities, presenting symptoms, or acuity I expect that the services needed warrant INPATIENT care.: Yes I certify that my determination is in accordance with my understanding of Medicare's requirements for reasonable and necessary INPATIENT services [42 CFR 412.3e].: Yes Medical Necessity: Risk of Complication if Not Cared For in Hospital
--- NOTE | 2017-09-10 13:35 | PSYCHOLOGICAL NOTE ---
Psych Note - Psych Note Psych Note: CAPACITY EVALUATION: Patient is a 72-year-old female who presented to the [facility] ( [facility]) Emergency Department on 08/30/2017 via EMS for wheezing, difficulty breathing and coughing. The night before she had called an ambulance for similar etiology and was given breathing treatments (note she takes 2 Liters of Oxygen at home). There were concerns with her elevated Troponin therefore she was admitted for observation to hospital services on telemetry. Hospitalist noted the following concerns: Dementia, frequent falls, Chronic Obstructive Pulmonary Disease (COPD) exacerbation, obesity and history of metastatic brain cancer. Patients medical insurance is Medicare B and [employer]. Patient resides in a private residence alone. Son is listed as emergency contact. Review of chart revealed Patients medical history is positive for Congestive Heart Failure (CHF), Coronary Artery Disease (CAD), Myocardial Infarction (MN), hypertension (HTN), asthma, bronchitis, COPD, pneumonia, hypothyroidism, lung cancer (small cell lung carcinoma) with brain metastases (per patient no chemotherapy currently, palliative care with in home health nurse), Gastrointestinal Reflux Disorder (GERD), arthritis, musculo-skeleton deformity/ trauma, depression, C. DIFF, cholecystectomy, orthopedic (foot) surgery and obstructive sleep apnea. Home medications include a list of 13 medications with Zoloft 50 mg in the morning being the only psychiatric medication. She is being administered 19 medications in the hospital with Zoloft 50 mg daily being the only psychiatric medication. The [facility] Behavioral Health team conducted a psychiatric evaluation 09/07/17 to further determine need for capacity. At that time there were similar screening questions asked and patient answered with consistency. A Head CT dated 08/15/15 completed secondary to fall and headache ( comparison 06/09/15) had the following findings: prominent ventricles, areas of low density in white matter most likely due to chronic microvascular ischemic change and mild age related involutional change. The overall impression was: no significant change from previous study which noted mild chronic changes of atrophy and microvascular ischemia. Report language suggests neurodegenerative processes as seen in dementia, patient appears to be moderate to severe given language and areas effected, and this is irreversible and typically worsens with age. A capacity evaluation was requested by the hospitalist due to hospitalist wanting to get patient to temporary physical rehabilitative center and patients refusato go to rehabilitation. The role of a capacity evaluation is to assess and measure a Patients abstract/rational level of thinking, executive functioning/planning/sequencing, executive functioning/switching, attention, orientation, safety/problem solving, memory, ability to complete daily living activities, and safety awareness. During the capacity evaluation patient presented calm and cooperative. She was alert and oriented to person, place, time and situation. Mood was euthymic with congruent affect. Patient denied current suicidal / homicidal ideations and no statements or gestures were made regarding suicidal and homicidal intent or plan. She did not appear to be responding to internal stimuli as evidenced by fair eye contact, answering questions with appropriate responses, staying on topic and carrying on dialogue conversation. Thought processes were linear, organized, and concrete in nature. Conversational speech was within normal limits for rate, tone and prosody. Intellectual abilities were estimated within the average range. Insight, judgment, and impulse control were impaired given vascular dementia and Head CT that corroborates. Patient correctly answered 8 of 11 orientation questions. The incorrect answers were day of the week, City, and the last 3 [place] Presidents. She incorrectly answered 3 of 3 higher cortical abstract reasoning questions in which Patient is required to describe how two items are similar. These results suggested poorly intact abstract thinking abilities without the capacity to employ skills necessary to navigate the nuances of daily living and activities. Patient repeated the name of 3-common objects after examiner instruction and could recall 0/3 items after 1 and 5-minute delays. She referenced items from prior tasks. She accurately spelled the word world forward and backward. Patients problem solving for questions regarding personal safety or the safety of others was accurate on this task. The Patient was administered the Clock Drawing Test, a standardized and peer reviewed measure of dementia. She jacinto a small ho-chunk near the very center of a portrait sheet of paper. She started with the number 12 and continued numbering sequentially clockwise. Her spacing was off. She identified this verbally. She was trembly. In terms of her ability to complete tasks of everyday living (e.g., mobility, bathing, cooking, grocery shopping, taking medications appropriately, etc.), the clinician observed a walker with wheels in the room. Patient identified she has used it at home for the past 10 years (though her time frame may be off). She noted she does not use it all the time but when she goes grocery shopping to push it and if tired, she can sit. She reported her granddaughter helps her get dress and showers her daily. She likely can feed herself given she could manipulate the pen for clock drawing (similar to eating utensil). She reported her granddaughter is usually with her when she grocery shops and cooks. She stated she doesnt drive. She reported she takes a bunch of pills, but does not know them by name, mentioned gout in her feet (the pill helps with the redness and reducing swelling), back and shoulder pain, seeing her Primary Care doctor regularly and granddaughter getting medication ready for her in pill boxes. Impression: The Patient is a 72-year-old female who is a and retired. She has had numerous visits since 2011 with 2 in 2018 and 19 in 2017. She has multiple significant medical issues. Hospitalist recommended temporary physical rehabilitation placement and patient has been refusing. She has an exhaustive list of home medication and receives 2 Liters of Oxygen at home. She is unable to perform her own ADLs (bathing, dressing, cooking, medication administration) . Overall, results of the current evaluation revealed fair orientation to present and items of knowledge, concrete thinking patterns, poor memory, poor sequencing , poor organizational abilities, poor visuospatial abilities, good safety and problem solving and minimal ability to complete own ADLs. Her Head CT is suggestive of neurodegenerative processes as seen in dementia which will inevitably affect her already poor memory, poor organizational abilities, poor visuospatial capabilities, and problem solving/safety skills as she ages. Given patients numerous significant medical issues along with the level of neurodegeneration there is concern patient has increased chance of being victimized. Additionally, there is concern the neurodegeneration will interfere with patients ability to safely navigate her environment or make decisions that are in her best interest as well as make her vulnerable to undue influence. It is with a reasonable degree of medical and clinical certainty, the Patient would benefit from a responsible and reliable Guardian to manage her medical, financial, legal, and personal affairs. She would benefit from 24-hour supervision with round the clock staff given her poor memory, poor organizational, poor visuospatial abilities and minimal ability to address own ADLs. The following diagnoses are offered: DIAGNOSES: 1. 290.40 (F01.50) Major Vascular Neurocognitive Disorder, Probable, Without behavioral disturbance 2. COPD Exacerbation 3. CHF with left ventricular diastolic dysfunction NYHA class 1 4. GERD 5. HTN RECOMMENDATIONS: 1. A responsible and reliable Guardian is recommended to manage medical, financial, legal, and personal affairs. 2. Psychiatric consultation with a provider is recommended to manage behavioral symptoms that are often associated with dementia. 3. Neurological consultation with a provider is recommended since Head CT language suggest chronic neurodegenerative process which will worsen with age. 4. Driving privileges should be evaluated. 5. Patient would benefit from a structured environment with routine and 24- hour supervision by medical staff.
[2017-09-11] MEDS: NYSTATIN TOPICAL POWDER 15 GM TP SCH ×4 (00:21→18:03)
[2017-09-11] MEDS: IPRATROPIUM/ALBUTEROL 0.5-2.5 MG/3 ML AMPUL NEB SCH ×4 (02:20→21:08)
[2017-09-11] MEDS: HEPARIN SOD (PORCINE) 5,000 UNIT/ML 1 ML SYRINGE SUBCUT SCH ×2 (07:44→14:40)
[2017-09-11] MEDS: LANSOPRAZOLE 30 MG TAB.RAP.DR PO SCH ×2 (07:45→18:03)
[2017-09-11] MEDS: SERTRALINE HCL 50 MG TABLET PO SCH (07:45)
[2017-09-11] MEDS: LEVOTHYROXINE SODIUM 0.088 MG TABLET PO SCH (07:47)
[2017-09-11] MEDS: TIOTROPIUM BROMIDE DPI 5 CAP/KIT (18 MCG/CAP) IH SCH (10:47)
[2017-09-11] MEDS: SALMETEROL XINAFOATE DISKUS 50 MCG/1 DOSE 28 DOSE IH SCH (10:47)
[2017-09-11] MEDS: ALLOPURINOL 100 MG TABLET PO SCH (10:47)
[2017-09-11] MEDS: GUAIFENESIN 600 MG TABLET.SA PO SCH (10:48)
[2017-09-11] MEDS: FUROSEMIDE 20 MG TABLET PO SCH (10:48)
[2017-09-11] MEDS: LISINOPRIL 5 MG TABLET PO SCH (10:48)
[2017-09-11] MEDS: AMLODIPINE BESYLATE 2.5 MG TABLET PO SCH (10:49)
[2017-09-11] MEDS: ASPIRIN 81 MG TABLET, ENT COATED PO SCH (10:49)
[2017-09-11] MEDS: PREDNISONE 20 MG TABLET PO SCH (10:49)
[2017-09-11] MEDS ORDERED: PREDNISONE 20 MG TABLET PO SCH (16:00)
[2017-09-11 16:35] VITALS: BP 105/67
== END 2017-09-11 19:30 | disposition home health service (06) | DRG 190 ==
LOC: ER 21:59 → EH 08-31 00:19 → 4S 08-31 12:31 → OBSVTOIN 08-31 12:42 → 4W 09-03 21:20
PROVIDERS: ADMIT Internal Medicine; ATTEND Internal Medicine
PROC: 5A09357 Assistance with Respiratory Ventilation, Less than 24 Consecutive Hours, Continuous Positive Airway Pressure (ICD-10-PCS; principal; 2017-08-31)
PROC: 3E0234Z Introduction of Serum, Toxoid and Vaccine into Muscle, Percutaneous Approach (ICD-10-PCS; 2017-09-01)
DX: J44.1 Chronic obstructive pulmonary disease with (acute) exacerbation (principal); J96.22 Acute and chronic respiratory failure with hypercapnia; E66.2 Morbid (severe) obesity with alveolar hypoventilation; I50.30 Unspecified diastolic (congestive) heart failure; C34.90 Malignant neoplasm of unspecified part of unspecified bronchus or lung; C79.31 Secondary malignant neoplasm of brain; Z51.5 Encounter for palliative care; I11.0 Hypertensive heart disease with heart failure; E03.9 Hypothyroidism, unspecified; K21.9 Gastro-esophageal reflux disease without esophagitis; M19.90 Unspecified osteoarthritis, unspecified site; F03.90 Unspecified dementia, unspecified severity, without behavioral disturbance, psychotic disturbance, mood disturbance, and anxiety; F32.9 Major depressive disorder, single episode, unspecified; D64.9 Anemia, unspecified; F41.9 Anxiety disorder, unspecified; Z68.32 Body mass index [BMI] 32.0-32.9, adult; I25.2 Old myocardial infarction; Z60.2 Problems related to living alone; G89.29 Other chronic pain; M54.5 Low back pain; R00.0 Tachycardia, unspecified; J41.0 Simple chronic bronchitis; I45.10 Unspecified right bundle-branch block; I45.81 Long QT syndrome; F01.50 Vascular dementia, unspecified severity, without behavioral disturbance, psychotic disturbance, mood disturbance, and anxiety; I25.10 Atherosclerotic heart disease of native coronary artery without angina pectoris; E11.9 Type 2 diabetes mellitus without complications; Z91.81 History of falling; Z99.81 Dependence on supplemental oxygen; Z92.3 Personal history of irradiation; Z79.899 Other long term (current) drug therapy; Z79.82 Long term (current) use of aspirin; Z88.1 Allergy status to other antibiotic agents; Z88.3 Allergy status to other anti-infective agents; Z87.891 Personal history of nicotine dependence; Z90.49 Acquired absence of other specified parts of digestive tract; Z85.118 Personal history of other malignant neoplasm of bronchus and lung; Z85.841 Personal history of malignant neoplasm of brain; Z80.1 Family history of malignant neoplasm of trachea, bronchus and lung; Z83.6 Family history of other diseases of the respiratory system
CPT/HCPCS: 36415; 71045; 80048; 80053; 82550; 82553; 82803; 82962; 83735; 83880; 84100; 84484; 85025; 85027; 93005; 93010; 94640; 94660; 94799; 96365; 99285; G0378; G8978-GP; G8979-GP; J1644; J2310; J2920; J3475; J3490; J7512; J7620

== ENCOUNTER 2017-09-12 22:05 | Emergency (ER) | payer MEDICARE, OTHER ==
[2017-09-12] MEDS ORDERED: PIPERACILLIN/TAZOBACTAM 4.5 GM VIAL IV ONE (22:19)
[2017-09-12] MEDS ORDERED: VANCOMYCIN HCL INJ 1000 MG VIAL IV ONE (22:19)
[2017-09-12] MEDS ORDERED: NORMAL SALINE 1000 ML 1,000 ML IV ONE (22:19)
--- NOTE | 2017-09-12 22:19 | ER Document Report ---
ED General - General Chief Complaint: Low Blood Pressure Stated Complaint: BLOOD PRESSURE PROBLEMS,DIFFICULTY BREATHING Time Seen by Provider: 09/12/17 22:17 Notes: This is a 72-year-old female with a past medical history of small cell lung carcinoma, home oxygen dependent, COPD, chronic respiratory failure, obstructive sleep apnea, chronic bronchitis, generalized debility, frequent falls, and dementia with recurrent hospital admissions who was admitted 08/31/2017 , presents after she left the hospital yesterday, returned home and her home nurse noticed that her blood pressure was low. EMS arrived and her blood pressure was 86/64 and she was found to have wheezing. She was given 125 Solu- Medrol, a Duoneb and 500 mL NS. Patient denies any complaints at this time. She denies nausea, vomiting, chest pain, shortness of breath, fevers, headache, rash or urinary symptoms. TRAVEL OUTSIDE OF THE [place] IN LAST 30 DAYS: No - Related Data Allergies/Adverse Reactions: azithromycin Allergy (Verified 08/31/17 02:36) amoxicillin [Amoxicillin] Adverse Reaction (Verified 07/26/17 11:39) visual hallucinations erythromycin base [Erythromycin Base] Adverse Reaction (Verified 07/26/17 11:39) visual hallucinations Potassium Clavulanate * [From Augmentin] Adverse Reaction (Verified 07/26/17 11: 39) visual hallucinations Past Medical History - General Information source: Patient, Emergency Med Personnel - Social History Smoking Status: Unknown if Ever Smoked Family History: COPD, Malignancy - Lung cancer - Past Medical History Cardiac Medical History: Reports: Hx Congestive Heart Failure, Hx Coronary Artery Disease, Hx Heart Attack, Hx Hypertension Denies: Hx DVT, Hx Hypercholesterolemia, Hx Pulmonary Embolism Pulmonary Medical History: Reports: Hx Asthma, Hx Bronchitis, Hx COPD - O2 dependent at night and as needed during the day, Hx Pneumonia Denies: Hx Sleep Apnea, Hx Tuberculosis Neurological Medical History: Denies: Hx Seizures Endocrine Medical History: Reports: Hx Hypothyroidism. Denies: Hx Diabetes Mellitus Type 1, Hx Diabetes Mellitus Type 2, Hx Hyperthyroidism Renal/ Medical History: Denies: Hx End Stage Renal Disease, Hx Kidney Stones, Hx Peritoneal Dialysis Malignancy Medical History: Reports: Hx Brain Cancer - Lung cancer with brain metastases, 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 GI Medical History: Reports: Hx Gastroesophageal Reflux Disease. Denies: Hx Cirrhosis, Hx Hepatitis, Hx Ulcer Musculoskeltal Medical History: Reports Hx Arthritis, Denies Hx Multiple Sclerosis, Reports Hx Musculoskeletal Deformity, Reports Hx Musculoskeletal Trauma Psychiatric Medical History: Reports: Hx Dementia, Hx Depression Denies: Hx Bipolar Disorder, Hx Schizophrenia Infectious Medical History: Reports: Hx C-Diff. Denies: Hx Hepatitis Past Surgical History: Reports: Hx Cholecystectomy, Hx Orthopedic Surgery - Foot surgery - Immunizations Hx Diphtheria, Pertussis, Tetanus Vaccination: Yes Hx Pneumococcal Vaccination: 08/30/12 Review of Systems - Review of Systems Notes: REVIEW OF SYSTEMS: CONSTITUTIONAL: -fevers, -chills EENT: -eye pain, -difficulty swallowing, -nasal congestion CARDIOVASCULAR: -chest pain, -syncope. RESPIRATORY: +cough, -SOB GASTROINTESTINAL: -abdominal pain, -nausea, -vomiting, -diarrhea GENITOURINARY: -dysuria, -hematuria MUSCULOSKELETAL: -back pain, -neck pain SKIN: -rash or skin lesions. HEMATOLOGIC: -easy bruising or bleeding. LYMPHATIC: -swollen, enlarged glands. NEUROLOGICAL: -altered mental status or loss of consciousness, -headache, - neurologic symptoms PSYCHIATRIC: -anxiety, -depression. ALL OTHER SYSTEMS REVIEWED AND NEGATIVE. Physical Exam - Vital signs Vitals: BP 95/51 L 09/12/17 22:11 - Notes Notes: PHYSICAL EXAMINATION: GENERAL: Well-appearing, well-nourished and in no acute distress. HEAD: Atraumatic, normocephalic. EYES: Pupils equal round and reactive to light, extraocular movements intact, sclera anicteric, conjunctiva are normal. ENT: nares patent, oropharynx clear without exudates. Moist mucous membranes. NECK: Normal range of motion, supple without lymphadenopathy LUNGS: Diffuse rhonchi. HEART: Tachycardia, regular rhythm. ABDOMEN: Soft, nontender, normoactive bowel sounds. No guarding, no rebound. No masses appreciated. EXTREMITIES: Normal range of motion, no pitting or edema. No cyanosis. NEUROLOGICAL: Cranial nerves grossly intact. Normal speech, normal gait. Normal sensory and motor exams. PSYCH: Normal mood, normal affect. SKIN: Warm, Dry, normal turgor, no rashes or lesions noted. Course - Re-evaluation Re-evalutation: Patient appears well and is in no respiratory distress. Chest x-ray does not show any acute abnormalities. Blood pressure improved after 500 mL normal saline. No signs of infection, including normal urine and flu negative. CTA chest ordered due to tachycardia and initial hypotension, but no evidence of PE. She appears at baseline based upon discharge yesterday. Patient refuses placement into assisted living and has home nursing. Will send home with steroids and albuterol for her bronchitis symptoms and follow-up at her primary care physician. Given very strict return precautions and she understands. - Vital Signs Vital signs: Temp Pulse Resp BP Pulse Ox 98.3 F 112 H 18 111/61 100 09/12/17 22:19 09/12/17 22:19 09/13/17 01:01 09/13/17 01:00 09/13/17 01:01 - Laboratory Result Diagrams: 09/12/17 22:33 09/12/17 22:33 Laboratory results interpreted by me: 09/12/17 09/12/17 09/12/17 22:33 22:33 23:23 WBC 11.8 H RBC 3.67 L Hgb 11.6 L Hct 35.4 L RDW 15.8 H Seg Neuts % (Manual) 83 H Lymphocytes % (Manual) 8 L Abs Neuts (Manual) 9.8 H Sodium 136.2 L BUN 46 H Est GFR (Non-Af Amer) 50 L Glucose 136 H POC Glucose Total Protein 5.3 L Albumin 3.4 L Urine Ascorbic Acid 20 H 09/12/17 09/13/17 23:32 01:03 WBC RBC Hgb Hct RDW Seg Neuts % (Manual) Lymphocytes % (Manual) Abs Neuts (Manual) Sodium BUN Est GFR (Non-Af Amer) Glucose POC Glucose 172 H 263 H Total Protein Albumin Urine Ascorbic Acid - Diagnostic Test Radiology reviewed: Image reviewed, Reports reviewed Radiology results interpreted by me: CXR: NAD CTA: NAD. - EKG Interpretation by Me EKG shows normal: Sinus rhythm Rate: Tachycardia [place]/QRS: RBBB When compared to previous EKG there are: No significant change Discharge - Discharge Clinical Impression: Bronchitis Condition: Stable Disposition: HOME, SELF-CARE Additional Instructions: BRONCHITIS WITH BRONCHOSPASM (WHEEZING): You have bronchitis with bronchospasm (wheezing). Sometimes people develop wheezing with a chest cold. This occurs either because of an underlying tendency toward asthma or because the virus itself irritates the bronchial tubes. This irritation causes cough, shortness of breath, and wheezing. Emergency treatment of bronchospasm may include adrenaline shots or bronchodilator aerosol. You may feel lightheaded and have a rapid pulse for an hour or two. Rest and get plenty of fluids. At home, we'll treat you with a bronchodilator inhaler. Corticosteroids may be required for some patients. Until you recover, avoid chemical fumes, dusts, pollens, and exercising in very cold or dry air. If you smoke, stop now! Most cases of bronchitis get better without antibiotics. We prescribe antibiotics when we believe bacteria are damaging your airways, or if there's high risk the bronchitis will worsen into pneumonia. Increase your fluid intake. A cool mist humidifier may make your lungs more comfortable. An expectorant (cough medicine that loosens phlegm) can help. Repeated episodes of bronchitis and bronchospasm may result in lung damage -- for example, chronic bronchitis, recurrent pneumonias, or emphysema. If you develop a fever, increased wheezing, chest pain, or severe shortness of breath, you should contact the doctor immediately. INHALED BRONCHODILATORS: You have received a treatment of and/or prescription for an inhaled bronchodilator -- a medication which stimulates the airways in the lung to dilate. This improves the flow of air in asthma, bronchitis, and emphysema. These medicines have some similarity to adrenaline, and can cause similar side effects: shakiness, racing heart, and a sense of nervousness. These side effects decrease with time. Contact your doctor if these side effects are severe. Do not over-use the medicine. Too-frequent use of the inhaler may make it ineffective. Call your doctor if the inhaler is not controlling your symptoms at the prescribed doses. STEROID MEDICATION: You have been given an injection of or oral medicine of the cortisone/ steroid class. This medication is used to control inflammation or allergy. Carlos t is usually only given for a short period of time, until the acute process subsides. There are usually no side effects from short-term use of cortisone-like medications. Some persons feel an increased sense of well-being and are not sleepy at bedtime. Long-term use of cortisone medications is best avoided, unless required for a severe condition. If your condition does not remit, or relapses after the course of corticosteroid medication, you should consult your physician. USE OF ACETAMINOPHEN (Tylenol): Acetaminophen may be taken for pain relief or fever control. It's much safer than aspirin, offering a wider range of "safe" dosages. It is safe during . Some brand names are Tylenol, Panadol, Datril, Anacin 3, Tempra, and Liquiprin. Acetaminophen can be repeated every four hours. The following are maximum recommended dosages: >89 pounds or adults 650 mg to 900 mg Acetaminophen can be repeated every four hours. Maximum dose not to exceed 4000 mg a day. SMOKING: If you smoke, you should stop smoking. The tar and chemicals in cigarette smoke are harmful. Smoking has been shown to cause: emphysema chronic bronchitis lung cancer mouth and throat cancer stomach and pancreas cancer premature aging defects In addition, smoking increases ear and lung infections in children of smokers. FOLLOW-UP CARE: If you have been referred to a physician for follow-up care, call the physician s office for an appointment as you were instructed or within the next two days. If you experience worsening or a significant change in your symptoms, notify the physician immediately or return to the Emergency Department at any time for re-evaluation. Prescriptions: Albuterol Sulfate [Proair HFA Inhalation Aerosol 8.5 gm MDI] 2 puff IH Q4H PRN # 1 mdi PRN Reason: Prednisone [Deltasone 20 mg Tablet] 3 tab PO DAILY 4 Days tablet Referrals: MERCEDES STRANGE, [Primary Care Provider] - Follow up as needed
[2017-09-12 22:57] LABS: VENOUS BLOOD BASE EXCESS 4.8 mmol/L; VENOUS BLOOD HCO3 31.1 mmol/L (20-32); VENOUS BLOOD PCO2 53.9 mmHg (35-63); VENOUS BLOOD PH 7.38 (7.30-7.42)
[2017-09-12 22:59] LABS: HEMATOCRIT 35.4 % (36.0-47.0); HEMOGLOBIN 11.6 g/dL (12.0-15.5); MEAN CORPUSCULAR HEMOGLOBIN 31.7 pg (27.0-33.4); MEAN CORPUSCULAR HGB CONC 32.9 g/dL (32.0-36.0); MEAN CORPUSCULAR VOLUME 97 fl (80-97); PLATELET COUNT 260 10^3/uL (150-450); RED BLOOD COUNT 3.67 10^6/uL (3.72-5.28); RED CELL DISTRIBUTION WIDTH 15.8 % (11.5-14.0); WHITE BLOOD COUNT 11.8 10^3/uL (4.0-10.5)
[2017-09-12 23:10] LABS: INTERNATIONAL RATION (INR) 0.77; PROTHROMBIN TIME 11.4 SEC (11.4-15.4)
[2017-09-12 23:14] LABS: ABSOLUTE LYMPHOCYTES# (MANUAL) 0.9 10^3/uL (0.5-4.7); ABSOLUTE MONOCYTES # (MANUAL) 1.1 10^3/uL (0.1-1.4); ABSOLUTE NEUTROPHILS# (MANUAL) 9.8 10^3/uL (1.7-8.2); BASOPHILS % (MANUAL) 0 % (0-2); EOSINOPHILS % (MANUAL) 0 % (0-6); LYMPHOCYTES % (MANUAL) 8 % (13-45); MONOCYTES % (MANUAL) 9 % (3-13); SEGMENTED NEUTROPHILS % (MAN) 83 % (42-78); TOTAL CELLS COUNTED 100
[2017-09-12 23:16] LABS: ANISOCYTOSIS SLIGHT; PLATELET COMMENT ADEQUATE; TOXIC GRANULATION SLIGHT
[2017-09-12 23:27] LABS: ALANINE AMINOTRANSFERASE 29 U/L (9-52); ALBUMIN 3.4 g/dL (3.5-5.0); ALKALINE PHOSPHATASE 66 U/L (38-126); ANION GAP 6 (5-19); ASPARTATE AMINO TRANSFERASE 21 U/L (14-36); BILIRUBIN,DIRECT 0.2 mg/dL (0.0-0.4); BILIRUBIN,TOTAL 0.3 mg/dL (0.2-1.3); BLOOD UREA NITROGEN 46 mg/dL (7-20); CALCIUM 9.2 mg/dL (8.4-10.2); CARBON DIOXIDE 28 mmol/L (22-30); CHLORIDE 102 mmol/L (98-107); GLUCOSE 136 mg/dL (75-110); POTASSIUM 4.6 mmol/L (3.6-5.0); SODIUM 136.2 mmol/L (137-145); TOTAL PROTEIN 5.3 g/dL (6.3-8.2)
--- NOTE | 2017-09-12 23:39 | RADIOLOGY REPORT (SQ) ---
EXAM DESCRIPTION: CHEST SINGLE VIEW CLINICAL HISTORY: 72 years, Female, hypotension COMPARISON: September 02, 2017. April 15, 2017. NUMBER OF VIEWS: One TECHNIQUE: AP portable upright LIMITATIONS: None. FINDINGS: Chronic scarlike opacity associated with the right hilum. Normal cardiac silhouette. Atherosclerosis. Intact bony thorax. IMPRESSION: No acute cardiopulmonary findings.
[2017-09-13 00:02] LABS: APPEARANCE,URINE SLIGHTLY-CLOUDY; BILIRUBIN,URINE NEGATIVE (NEGATIVE); COLOR,URINE YELLOW; GLUCOSE, URINE NEGATIVE (NEGATIVE); KETONES,URINE NEGATIVE (NEGATIVE); LEUKOCYTE ESTERASE,URINE NEGATIVE (NEGATIVE); NITRITE,URINE NEGATIVE (NEGATIVE); PROTEIN,URINE NEGATIVE (NEGATIVE); URINE SPECIFIC GRAVITY 1.017; UROBILINOGEN,URINE NEGATIVE mg/dL (<2.0)
[2017-09-13] MEDS ORDERED: IPRATROPIUM/ALBUTEROL 0.5-2.5 MG/3 ML AMPUL NEB ONE (01:10)
[2017-09-13 02:13] LABS: A TYPE INFLUENZA AG NEGATIVE (NEGATIVE); B INFLUENZA AG NEGATIVE (NEGATIVE)
--- NOTE | 2017-09-13 02:42 | RADIOLOGY REPORT (SQ) ---
EXAM DESCRIPTION: CTA CHEST CLINICAL HISTORY: 72 years Female, tachycardia, hypotension, Hx lung CA, recent Hx COMPARISON: August 12 2017 July 26, 2017. TECHNIQUE: 100 mL Isovue-370 IV contrast. Multiplanar reformat. This exam was performed according to our departmental dose-optimization program, which includes automated exposure control, adjustment of the mA and/or kV according to patient size and/or use of iterative reconstruction technique. FINDINGS: No acute cardiopulmonary findings.No evidence of pulmonary embolus. No right ventricular strain. Small moderate right perihilar confluent soft tissue density opacity extends to the right upper lobe and right lower lobe without suspicious interval change consistent with history of lung cancer. Cholecystectomy clips with moderate intrabiliary gas reflux. Small coronary calcification. Inferior neck, axillae, mediastinum, airway, lymphatics, heart, vasculature, upper abdomen, and musculoskeleton appear otherwise unremarkable. IMPRESSION: No acute cardiopulmonary findings. No pulmonary embolus. Chronic right perihilar opacities consistent with history of lung cancer; no suspicious interval change.
--- NOTE | 2017-09-13 09:38 | EKG REPORT ---
SEVERITY:- ABNORMAL ECG - SINUS RHYTHM, MULTIPLE PREMATURE COMPLEXES, SUPRAVEN RIGHT BUNDLE BRANCH BLOCK : Confirmed by: Mercedes Solomon 13-Sep-2017 09:38:02
[2017-09-13 10:32] VITALS: BP 108/61
== END 2017-09-13 10:32 | disposition home or self-care (01) ==
LOC: ER 22:05
DX: J40 Bronchitis, not specified as acute or chronic (principal); J44.9 Chronic obstructive pulmonary disease, unspecified; Z99.81 Dependence on supplemental oxygen; I95.9 Hypotension, unspecified; I45.10 Unspecified right bundle-branch block; R00.0 Tachycardia, unspecified; I25.10 Atherosclerotic heart disease of native coronary artery without angina pectoris; I10 Essential (primary) hypertension; I25.2 Old myocardial infarction; Z85.118 Personal history of other malignant neoplasm of bronchus and lung; Z85.841 Personal history of malignant neoplasm of brain; Z88.1 Allergy status to other antibiotic agents; Z88.0 Allergy status to penicillin
CPT/HCPCS: 93005; 94640; 99285; 96365; 96366; 96368; 36415; 87040; 87086; 82962; 85025; 85610; 87088; 80053; 81001; 84484; 87186; 82803; 83605; 87804; 71045; 71275; 93010; J7030; J3370; A9270; J2543; J7620

== ENCOUNTER 2017-09-18 09:50 | Emergency (ER) | payer MEDICARE, OTHER ==
[2017-09-18] MEDS ORDERED: IPRATROPIUM/ALBUTEROL 0.5-2.5 MG/3 ML AMPUL NEB ONE (10:25)
[2017-09-18 10:34] LABS: INTERNATIONAL RATION (INR) 0.81; PROTHROMBIN TIME 11.8 SEC (11.4-15.4)
[2017-09-18 10:35] LABS: HEMATOCRIT 35.3 % (36.0-47.0); HEMOGLOBIN 11.6 g/dL (12.0-15.5); MEAN CORPUSCULAR HEMOGLOBIN 31.9 pg (27.0-33.4); MEAN CORPUSCULAR HGB CONC 32.7 g/dL (32.0-36.0); MEAN CORPUSCULAR VOLUME 97 fl (80-97); PLATELET COUNT 193 10^3/uL (150-450); RED BLOOD COUNT 3.63 10^6/uL (3.72-5.28); RED CELL DISTRIBUTION WIDTH 16.1 % (11.5-14.0); WHITE BLOOD COUNT 11.2 10^3/uL (4.0-10.5)
[2017-09-18 10:39] LABS: ALANINE AMINOTRANSFERASE 29 U/L (9-52); ALBUMIN 3.6 g/dL (3.5-5.0); ALKALINE PHOSPHATASE 75 U/L (38-126); ANION GAP 6 (5-19); ASPARTATE AMINO TRANSFERASE 48 U/L (14-36); BILIRUBIN,DIRECT 0.5 mg/dL (0.0-0.4); BILIRUBIN,TOTAL 0.5 mg/dL (0.2-1.3); BLOOD UREA NITROGEN 26 mg/dL (7-20); CALCIUM 9.9 mg/dL (8.4-10.2); CARBON DIOXIDE 36 mmol/L (22-30); CHLORIDE 96 mmol/L (98-107); GLUCOSE 84 mg/dL (75-110); LIPASE 152.2 U/L (23-300); MAGNESIUM 2.1 mg/dL (1.6-2.3); POTASSIUM 4.3 mmol/L (3.6-5.0); SODIUM 138.2 mmol/L (137-145)
[2017-09-18 10:42] LABS: CREATINE KINASE < 20 U/L (30-135)
[2017-09-18 10:48] LABS: CREATINE KINASE MB 1.16 ng/mL (<4.55)
[2017-09-18 10:51] LABS: VENOUS BLOOD BASE EXCESS 9.4 mmol/L; VENOUS BLOOD HCO3 36.1 mmol/L (20-32); VENOUS BLOOD PCO2 60.8 mmHg (35-63); VENOUS BLOOD PH 7.39 (7.30-7.42)
[2017-09-18 10:54] LABS: TROPONIN I 0.034 ng/mL
[2017-09-18 10:59] LABS: ABSOLUTE LYMPHOCYTES# (MANUAL) 1.3 10^3/uL (0.5-4.7); ABSOLUTE NEUTROPHILS# (MANUAL) 8.8 10^3/uL (1.7-8.2); BASOPHILS % (MANUAL) 0 % (0-2); EOSINOPHILS % (MANUAL) 0 % (0-6); LYMPHOCYTES % (MANUAL) 12 % (13-45); MONOCYTES % (MANUAL) 9 % (3-13); SEGMENTED NEUTROPHILS % (MAN) 79 % (42-78); TOTAL CELLS COUNTED 100
[2017-09-18 11:00] LABS: ANISOCYTOSIS 1+; OVALOCYTES SLIGHT; PLATELET COMMENT ADEQUATE; POIKILOCYTOSIS SLIGHT; TOXIC GRANULATION SLIGHT; TOXIC VACUOLATION PRESENT
--- NOTE | 2017-09-18 11:13 | RADIOLOGY REPORT (SQ) ---
EXAM DESCRIPTION: CHEST SINGLE VIEW portable COMPLETED DATE/TIME: 09/18/2017 10:58 am REASON FOR STUDY: sob COMPARISON: Chest x-ray 09/12/[address] chest 09/13/2017 EXAM PARAMETERS: NUMBER OF VIEWS: One view. TECHNIQUE: Single frontal radiographic view of the chest acquired. Portable technique RADIATION DOSE: NA LIMITATIONS: None. FINDINGS: LUNGS AND PLEURA: Chronic change right hilum and RLL, history lung CA. No new areas of pu lmonary infiltrate. No pleural effusion. MEDIASTINUM AND HILAR STRUCTURES: Stable appearance. HEART AND VASCULAR STRUCTURES: Heart normal in size. Normal vasculature. BONES: No acute findings. HARDWARE: None in the chest. OTHER: No other significant finding. IMPRESSION: Stable appearance. Chronic changes on the right. TECHNICAL DOCUMENTATION: JOB ID: [id number] [employer]- All Rights Reserved
--- NOTE | 2017-09-18 12:16 | RADIOLOGY REPORT (SQ) ---
EXAM DESCRIPTION: VENOUS BILATERAL LOWER COMPLETED DATE/TIME: 09/18/2017 11:56 am REASON FOR STUDY: bilateral leg pain COMPARISON: None. TECHNIQUE: Dynamic and static gordon scale and color images acquired of both lower extremity venous sy stems. Selected spectral images acquired with additional compression and augmentation maneuvers. Imag es stored on PACS. LIMITATIONS: None. FINDINGS: RIGHT LEG COMMON FEMORAL AND FEMORAL: Normal phasicity, compression and augmentation. No visualized echogenic m aterial on gordon scale. No defects on color images. POPLITEAL: Normal compression and augmentation. No visualized echogenic material on gordon scale. No de fects on color images. CALF VESSELS: Normal compression and augmentation. No visualized echogenic material on gordon scale. No defects on color image. GSV AND SSV: Normal compression. No visualized echogenic material on gordon scale. No defects on color images. ANY DEEP VENOUS INSUFFICIENCY: Not evaluated. ANY EVIDENCE OF POPLITEAL CYST: No. OTHER: No other significant finding. LEFT LEG COMMON FEMORAL AND FEMORAL: Normal phasicity, compression and augmentation. No visualized echogenic m aterial on gordon scale. No defects on color images. POPLITEAL: Normal compression and augmentation. No visualized echogenic material on gordon scale. No de fects on color images. CALF VESSELS: Normal compression and augmentation. No visualized echogenic material on gordon scale. No defects on color images. GSV AND SSV: Normal compression. No visualized echogenic material on gordon scale. No defects on color images. ANY DEEP VENOUS INSUFFICIENCY: Not evaluated. ANY EVIDENCE POPLITEAL CYST: No. OTHER: No other significant finding. IMPRESSION: NO EVIDENCE DVT OR SVT IN EITHER LEG. TECHNICAL DOCUMENTATION: JOB ID: [id number]- All Rights Reserved
--- NOTE | 2017-09-18 13:00 | ER Document Report ---
ED General - General Chief Complaint: Leg Pain Stated Complaint: LEG PAIN Time Seen by Provider: 09/18/17 10:22 TRAVEL OUTSIDE OF THE [place] IN LAST 30 DAYS: No - HPI Patient complains to provider of: Bilateral leg pain Notes: Patient coming in for evaluation of bilateral leg pain. Patient has history of CHF COPD. Patient according to the nurse states that she was recently offer her gabapentin. Patient was given fentanyl by EMS. Upon my evaluation patient resting comfortably. States pain in the lower extremities from the knee down bilaterally denies any trauma. Resting comfortably on her home O2 of 2 L. Denies fever chills nausea vomiting diarrhea - Related Data Allergies/Adverse Reactions: azithromycin Allergy (Verified 08/31/17 02:36) amoxicillin [Amoxicillin] Adverse Reaction (Verified 07/26/17 11:39) visual hallucinations erythromycin base [Erythromycin Base] Adverse Reaction (Verified 07/26/17 11:39) visual hallucinations Potassium Clavulanate * [From Augmentin] Adverse Reaction (Verified 07/26/17 11: 39) visual hallucinations Past Medical History - Social History Smoking Status: Current Every Day Smoker Frequency of alcohol use: None Drug Abuse: None Family History: COPD, Malignancy - Lung cancer Patient has suicidal ideation: No Patient has homicidal ideation: No - Past Medical History Cardiac Medical History: Reports: Hx Congestive Heart Failure, Hx Coronary Artery Disease, Hx Heart Attack, Hx Hypertension Denies: Hx DVT, Hx Hypercholesterolemia, Hx Pulmonary Embolism Pulmonary Medical History: Reports: Hx Asthma, Hx Bronchitis, Hx COPD - O2 dependent at night and as needed during the day, Hx Pneumonia Denies: Hx Sleep Apnea, Hx Tuberculosis Neurological Medical History: Denies: Hx Seizures Endocrine Medical History: Reports: Hx Hypothyroidism. Denies: Hx Diabetes Mellitus Type 1, Hx Diabetes Mellitus Type 2, Hx Hyperthyroidism Renal/ Medical History: Denies: Hx End Stage Renal Disease, Hx Kidney Stones, Hx Peritoneal Dialysis Malignancy Medical History: Reports: Hx Brain Cancer - Lung cancer with brain metastases, 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 GI Medical History: Reports: Hx Gastroesophageal Reflux Disease. Denies: Hx Cirrhosis, Hx Hepatitis, Hx Ulcer Musculoskeltal Medical History: Reports Hx Arthritis, Denies Hx Multiple Sclerosis, Reports Hx Musculoskeletal Deformity, Reports Hx Musculoskeletal Trauma Psychiatric Medical History: Reports: Hx Dementia, Hx Depression Denies: Hx Bipolar Disorder, Hx Schizophrenia Infectious Medical History: Reports: Hx C-Diff. Denies: Hx Hepatitis Past Surgical History: Reports: Hx Cholecystectomy, Hx Orthopedic Surgery - Foot surgery - Immunizations Hx Diphtheria, Pertussis, Tetanus Vaccination: Yes Hx Pneumococcal Vaccination: 08/30/12 Review of Systems - Review of Systems Constitutional: No symptoms reported EENT: No symptoms reported Cardiovascular: No symptoms reported Respiratory: No symptoms reported Gastrointestinal: No symptoms reported Genitourinary: No symptoms reported Female Genitourinary: No symptoms reported Musculoskeletal: Other - Bilateral leg pain Skin: No symptoms reported Hematologic/Lymphatic: No symptoms reported Neurological/Psychological: No symptoms reported -: Yes All other systems reviewed and negative Physical Exam - Vital signs Vitals: Temp Pulse Resp BP Pulse Ox 98.0 F 99 20 110/65 100 09/18/17 10:06 09/18/17 10:06 09/18/17 10:06 09/18/17 10:06 09/18/17 10:06 Interpretation: Normal - General General appearance: Appears well, Alert - HEENT Head: Normocephalic, Atraumatic Eyes: Normal Pupils: PERRL - Respiratory Respiratory status: No respiratory distress Chest status: Nontender Breath sounds: Rhonchi, Wheezing Chest palpation: Normal - Cardiovascular Rhythm: Regular Heart sounds: Normal auscultation Murmur: No - Abdominal Inspection: Normal Distension: No distension Bowel sounds: Normal Tenderness: Nontender Organomegaly: No organomegaly - Back Back: Normal, Nontender - Extremities General upper extremity: Normal inspection, Nontender, Normal color, Normal ROM , Normal temperature General lower extremity: Normal inspection, Nontender, Normal color, Normal ROM , Normal temperature, Normal weight bearing. No: Sabine's sign - Neurological Neuro grossly intact: Yes Whiting Coma Scale Eye Opening: Spontaneous Raquel Coma Scale Verbal: Oriented Whiting Coma Scale Motor: Obeys Commands Whiting Coma Scale Total: 15 Speech: Normal Motor strength normal: LUE, RUE, LLE, RLE Sensory: Normal - Psychological Associated symptoms: Normal affect, Normal mood - Skin Skin Temperature: Warm Skin Moisture: Dry Skin Color: Normal Course - Re-evaluation Re-evalutation: 09/18/17 15:45 Laboratory evaluation does not show any acute pathology. The performed venous Dopplers and these are negative. No signs of any clear etiology for the patient 's leg pain. Patient did have workup as she has a significant history for hypoxic respiratory failure in the past. No signs of impending hypoxic respiratory failure at this time laboratory values again does not show any clear etiology. Patient will be discharged home will start patient back on her Neurontin encouraged patient follow-up with her PCP. - Vital Signs Vital signs: Temp Pulse Resp BP Pulse Ox 98.8 F 100 24 H 106/62 100 09/18/17 13:44 09/18/17 13:44 09/18/17 12:01 09/18/17 13:44 09/18/17 13:44 - Laboratory Result Diagrams: 09/18/17 09:16 09/18/17 09:16 Laboratory results interpreted by me: 09/18/17 09/18/17 09/18/17 09:16 09:16 10:30 WBC 11.2 H RBC 3.63 L Hgb 11.6 L Hct 35.3 L RDW 16.1 H Seg Neuts % (Manual) 79 H Lymphocytes % (Manual) 12 L Abs Neuts (Manual) 8.8 H VBG HCO3 36.1 H Chloride 96 L Carbon Dioxide 36 H BUN 26 H Direct Bilirubin 0.5 H AST 48 H Creatine Kinase < 20 L Total Protein 6.0 L Discharge - Discharge Clinical Impression: Bilateral leg pain COPD (chronic obstructive pulmonary disease) Qualifiers: COPD type: unspecified COPD Qualified Code(s): J44.9 - Chronic obstructive pulmonary disease, unspecified Condition: Good Disposition: HOME, SELF-CARE Instructions: Leg Pain Nonspecific ([facility]), Weakness ([facility]) Additional Instructions: At this time your laboratory studies ultrasound workup does not show any critical etiology for your leg pain. Of the highly recommend following up with your primary care physician for further evaluation of the leg pain. I will place you on neurontin for pain return to ER symptoms worsen. Prescriptions: Gabapentin [Neurontin 100 mg Capsule] 100 mg PO DAILY #30 capsule Referrals: MERCEDES STRANGE DO [Primary Care Provider] - Follow up in 3-5 days
--- NOTE | 2017-09-18 13:38 | EKG REPORT ---
SEVERITY:- ABNORMAL ECG - SINUS RHYTHM RIGHT BUNDLE BRANCH BLOCK : Confirmed by: Issa Martinez MD 18-Sep-2017 13:38:00
[2017-09-18 13:57] VITALS: BP 106/62
== END 2017-09-18 13:45 | disposition home or self-care (01) ==
LOC: ER 09:50
DX: M79.605 Pain in left leg (principal); M79.604 Pain in right leg; J44.9 Chronic obstructive pulmonary disease, unspecified; F17.200 Nicotine dependence, unspecified, uncomplicated; I50.9 Heart failure, unspecified; I11.0 Hypertensive heart disease with heart failure; I25.10 Atherosclerotic heart disease of native coronary artery without angina pectoris; E03.9 Hypothyroidism, unspecified; Z88.3 Allergy status to other anti-infective agents; Z88.0 Allergy status to penicillin; I25.2 Old myocardial infarction; Z90.49 Acquired absence of other specified parts of digestive tract
CPT/HCPCS: 93005; 94640; 99285; 36415; 82553; 82550; 83690; 83735; 85025; 85610; 80053; 84484; 82803; 93970; 71045; 93010; A9270; J7620

== ENCOUNTER 2017-09-19 17:46 | Inpatient (IN) | payer MEDICARE, OTHER ==
--- NOTE | 2017-09-19 18:34 | RADIOLOGY REPORT (SQ) ---
EXAM DESCRIPTION: CHEST SINGLE VIEW COMPLETED DATE/TIME: 09/19/2017 6:25 pm REASON FOR STUDY: bed 19 db COMPARISON: 09/18/2017 EXAM PARAMETERS: NUMBER OF VIEWS: One view. TECHNIQUE: Single frontal radiographic view of the chest acquired. RADIATION DOSE: NA LIMITATIONS: None. FINDINGS: LUNGS AND PLEURA: No new opacities, masses or pneumothorax. No pleural effusion. MEDIASTINUM AND HILAR STRUCTURES: Stable. HEART AND VASCULAR STRUCTURES: Heart stable in size. Normal vasculature. BONES: No acute findings. HARDWARE: None in the chest. OTHER: No other significant finding. IMPRESSION: NO ACUTE RADIOGRAPHIC FINDING IN THE CHEST. NO SIGNIFICANT CHANGE FROM PRIOR STUDY. TECHNICAL DOCUMENTATION: JOB ID: [id number] [employer]- All Rights Reserved
[2017-09-19 18:50] LABS: VENOUS BLOOD BASE EXCESS 12.6 mmol/L; VENOUS BLOOD HCO3 39.9 mmol/L (20-32); VENOUS BLOOD PH 7.36 (7.30-7.42)
--- NOTE | 2017-09-19 18:50 | EKG REPORT ---
SEVERITY:- ABNORMAL ECG - SINUS TACHYCARDIA MULTIPLE PREMATURE COMPLEXES, SUPRAVEN RIGHT BUNDLE BRANCH BLOCK : Confirmed by: Issa Martinez MD 19-Sep-2017 18:49:43
[2017-09-19 18:51] LABS: ABSOLUTE LYMPHOCYTES (AUTO) 0.6 10^3/uL (0.5-4.7); ABSOLUTE MONOCYTES (AUTO) 0.7 10^3/uL (0.1-1.4); ABSOLUTE NEUT (AUTO) 9.2 10^3/uL (1.7-8.2); BASOPHILS % (AUTO) 0.4 % (0-2); EOSINOPHILS % (AUTO) 0.4 % (0-6); HEMATOCRIT 31.6 % (36.0-47.0); HEMOGLOBIN 10.5 g/dL (12.0-15.5); LYMPHOCYTES % (AUTO) 5.5 % (13-45); MEAN CORPUSCULAR HEMOGLOBIN 32.3 pg (27.0-33.4); MEAN CORPUSCULAR HGB CONC 33.2 g/dL (32.0-36.0); MEAN CORPUSCULAR VOLUME 97 fl (80-97); MONOCYTES % (AUTO) 6.3 % (3-13); PLATELET COUNT 180 10^3/uL (150-450); RED BLOOD COUNT 3.26 10^6/uL (3.72-5.28); RED CELL DISTRIBUTION WIDTH 16.2 % (11.5-14.0); SEGMENTED NEUTROPHILS % (AUTO) 87.4 % (42-78); TOTAL CELLS COUNTED % (AUTO) 100 %; WHITE BLOOD COUNT 10.5 10^3/uL (4.0-10.5)
[2017-09-19 18:52] LABS: VENOUS BLOOD PCO2 72.3 mmHg (35-63)
[2017-09-19 19:09] LABS: ALANINE AMINOTRANSFERASE 38 U/L (9-52); ALBUMIN 3.2 g/dL (3.5-5.0); ALKALINE PHOSPHATASE 63 U/L (38-126); ANION GAP 6 (5-19); ASPARTATE AMINO TRANSFERASE 16 U/L (14-36); BILIRUBIN,DIRECT 0.3 mg/dL (0.0-0.4); BILIRUBIN,TOTAL 0.4 mg/dL (0.2-1.3); BLOOD UREA NITROGEN 23 mg/dL (7-20); CALCIUM 8.7 mg/dL (8.4-10.2); CARBON DIOXIDE 34 mmol/L (22-30); CHLORIDE 97 mmol/L (98-107); GLUCOSE 154 mg/dL (75-110); POTASSIUM 3.8 mmol/L (3.6-5.0); SODIUM 137.2 mmol/L (137-145); TOTAL PROTEIN 5.3 g/dL (6.3-8.2)
[2017-09-19 19:12] LABS: CREATINE KINASE < 20 U/L (30-135)
[2017-09-19 19:18] LABS: CREATINE KINASE MB 0.75 ng/mL (<4.55)
[2017-09-19 19:19] LABS: APPEARANCE,URINE SLIGHTLY-CLOUDY; BILIRUBIN,URINE NEGATIVE (NEGATIVE); COLOR,URINE YELLOW; GLUCOSE, URINE NEGATIVE (NEGATIVE); KETONES,URINE NEGATIVE (NEGATIVE); LEUKOCYTE ESTERASE,URINE TRACE (NEGATIVE); NITRITE,URINE NEGATIVE (NEGATIVE); PROTEIN,URINE NEGATIVE (NEGATIVE); URINE SPECIFIC GRAVITY 1.006; UROBILINOGEN,URINE NEGATIVE mg/dL (<2.0)
--- NOTE | 2017-09-19 19:42 | ER Document Report ---
ED General - General Chief Complaint: General Weakness Stated Complaint: WEAKNESS Time Seen by Provider: 09/19/17 18:12 Mode of Arrival: Medic Information source: Patient Notes: 72-year-old female presents with complaints of shortness of breath. Patient has a history CHF COPD presents by home health with concerns of difficulty breathing, patient was placed on 3 L nasal cannula was found to be hypotensive 80s over 50s by EMS TRAVEL OUTSIDE OF THE [place] IN LAST 30 DAYS: No - HPI Onset: Other - Patient was recently seen for similar complaints Onset/Duration: Waxing and waning Quality of pain: No pain Severity: Mild Pain Level: Denies Associated symptoms: Nonproductive cough, Shortness of breath, Weakness Exacerbated by: Denies Relieved by: Denies Similar symptoms previously: Yes Recently seen / treated by doctor: Yes - Related Data Allergies/Adverse Reactions: azithromycin Allergy (Verified 08/31/17 02:36) amoxicillin [Amoxicillin] Adverse Reaction (Verified 07/26/17 11:39) visual hallucinations erythromycin base [Erythromycin Base] Adverse Reaction (Verified 07/26/17 11:39) visual hallucinations Potassium Clavulanate * [From Augmentin] Adverse Reaction (Verified 07/26/17 11: 39) visual hallucinations Past Medical History - Social History Smoking Status: Former Smoker Cigarette use (# per day): No Chew tobacco use (# tins/day): No Smoking Education Provided: No Family History: COPD, Malignancy - Lung cancer Patient has suicidal ideation: No Patient has homicidal ideation: No - Past Medical History Cardiac Medical History: Reports: Hx Congestive Heart Failure, Hx Coronary Artery Disease, Hx Heart Attack, Hx Hypertension Denies: Hx DVT, Hx Hypercholesterolemia, Hx Pulmonary Embolism Pulmonary Medical History: Reports: Hx Asthma, Hx Bronchitis, Hx COPD - O2 dependent at night and as needed during the day, Hx Pneumonia Denies: Hx Sleep Apnea, Hx Tuberculosis Neurological Medical History: Denies: Hx Seizures Endocrine Medical History: Reports: Hx Hypothyroidism. Denies: Hx Diabetes Mellitus Type 1, Hx Diabetes Mellitus Type 2, Hx Hyperthyroidism Renal/ Medical History: Denies: Hx End Stage Renal Disease, Hx Kidney Stones, Hx Peritoneal Dialysis Malignancy Medical History: Reports: Hx Brain Cancer - Lung cancer with brain metastases, 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 GI Medical History: Reports: Hx Gastroesophageal Reflux Disease. Denies: Hx Cirrhosis, Hx Hepatitis, Hx Ulcer Musculoskeltal Medical History: Reports Hx Arthritis, Denies Hx Multiple Sclerosis, Reports Hx Musculoskeletal Deformity, Reports Hx Musculoskeletal Trauma Psychiatric Medical History: Reports: Hx Dementia, Hx Depression Denies: Hx Bipolar Disorder, Hx Schizophrenia Infectious Medical History: Reports: Hx C-Diff. Denies: Hx Hepatitis Past Surgical History: Reports: Hx Cholecystectomy, Hx Orthopedic Surgery - Foot surgery - Immunizations Hx Diphtheria, Pertussis, Tetanus Vaccination: Yes Hx Pneumococcal Vaccination: 08/30/12 Review of Systems - Review of Systems Notes: REVIEW OF SYSTEMS: Patient is quite confused CONSTITUTIONAL : Denies fever, chills, or sweats. Denies recent illness. EENT: Denies eye, ear, throat, or mouth pain or symptoms. Denies nasal or sinus congestion or discharge. Denies throat, tongue, or mouth swelling or difficulty swallowing. CARDIOVASCULAR: Denies chest pain. Denies palpitations or racing or irregular heart beat. Denies ankle edema. RESPIRATORY: admits to sob GASTROINTESTINAL: Denies abdominal pain or distention. Denies nausea, vomiting , or diarrhea. Denies blood in vomitus, stools, or per rectum. Denies black, tarry stools. Denies constipation. GENITOURINARY: Denies difficulty urinating, painful urination, burning, frequency, blood in urine, or discharge. FEMALE GENITOURINARY: Denies vaginal bleeding, heavy or abnormal periods, irregular periods. Denies vaginal discharge or odor. MUSCULOSKELETAL: Denies back or neck pain or stiffness. Denies joint pain or swelling. SKIN: Denies rash, lesions or sores. HEMATOLOGIC : Denies easy bruising or bleeding. LYMPHATIC: Denies swollen, enlarged glands. NEUROLOGICAL: confused PSYCHIATRIC: Denies anxiety or stress. Denies depression, suicidal ideation, or homicidal ideation. ALL OTHER SYSTEMS REVIEWED AND NEGATIVE. PHYSICAL EXAMINATION: GENERAL: Obese female moderate resp distress HEAD: Atraumatic, normocephalic. EYES: Pupils equal round and reactive to light, extraocular movements intact, conjunctiva are normal. ENT: Nares patent, oropharynx clear without exudates. Moist mucous membranes. NECK: Normal range of motion, supple without lymphadenopathy LUNGS: coarse wheezing all throughout HEART: Regular rate and rhythm without murmurs ABDOMEN: Soft, nontender, nondistended abdomen. No guarding, no rebound. No masses appreciated. Female : deferred Musculoskeletal: Normal range of motion, no pitting or edema. No cyanosis. NEUROLOGICAL: GCS 13 PSYCH: Normal mood, normal affect. SKIN: Warm, Dry, normal turgor, no rashes or lesions noted. Dictation was performed using [employer] voice recognition software Physical Exam - Vital signs Vitals: Resp BP 20 98/57 L 09/19/17 17:58 09/19/17 17:58 Course - Re-evaluation Re-evalutation: 09/19/17 19:53 Patient upon my evaluation is confused, she is having mild respiratory distress but does not appear septic, she was a little hypotensive upon arrival by EMS was given fluid bolus with improvement, at this time blood pressure has stabilized 101/63 patient's heart rate is still slightly tachycardic 150s-120s she was immediately placed on BiPAP when it was noted on the VBG the patient was hypercapnic. I believe COPD exacerbation to be the cause of her symptoms - Vital Signs Vital signs: Temp Pulse Resp BP Pulse Ox 98.2 F 19 101/63 98 09/19/17 17:59 09/19/17 19:06 09/19/17 19:06 09/19/17 19:06 - Laboratory Result Diagrams: 09/19/17 18:40 09/19/17 18:40 Laboratory results interpreted by me: 09/19/17 09/19/17 09/19/17 18:40 18:40 18:40 RBC 3.26 L Hgb 10.5 L Hct 31.6 L RDW 16.2 H Seg Neutrophils % 87.4 H Lymphocytes % 5.5 L Absolute Neutrophils 9.2 H VBG pCO2 72.3 H* VBG HCO3 39.9 H Chloride 97 L Carbon Dioxide 34 H BUN 23 H Glucose 154 H Creatine Kinase < 20 L Total Protein 5.3 L Albumin 3.2 L Urine Blood Ur Leukocyte Esterase 09/19/17 19:07 RBC Hgb Hct RDW Seg Neutrophils % Lymphocytes % Absolute Neutrophils VBG pCO2 VBG HCO3 Chloride Carbon Dioxide BUN Glucose Creatine Kinase Total Protein Albumin Urine Blood SMALL H Ur Leukocyte Esterase TRACE H Critical Care Note - Critical Care Note Total time excluding time spent on procedures (mins): 33 Comments: 33 minutes of critical care time spent in direct contact evaluating and reevaluating the patient, treating symptoms, reviewing labs and studies and speaking with family and consultants excluding any procedures Discharge - Discharge Clinical Impression: Hypercapnemia, Generalized weakness COPD (chronic obstructive pulmonary disease) Qualifiers: COPD type: unspecified COPD Qualified Code(s): J44.9 - Chronic obstructive pulmonary disease, unspecified Condition: Stable Disposition: ADMITTED INPATIENT Admitting Provider: Hospitalist Unit Admitted: IMCU Referrals: MERCEDES STRANGE DO [Primary Care Provider] - Follow up as needed
[2017-09-19] MEDS ORDERED: IPRATROPIUM/ALBUTEROL 0.5-2.5 MG/3 ML AMPUL NEB ONE (19:43)
[2017-09-19] MEDS ORDERED: METHYLPREDNISOLONE INJ 125 MG/2 ML SDV IV ONE (19:43)
[2017-09-19] MEDS ORDERED: ALBUTEROL SULFATE 0.083% NEB 2.5 MG/3 ML AMPUL NEB PRN (21:48)
[2017-09-19] MEDS ORDERED: ACETAMINOPHEN 325 MG TABLET PO PRN (21:48)
[2017-09-19] MEDS ORDERED: PROMETHAZINE HCL 25 MG TABLET PO PRN (21:48)
[2017-09-19] MEDS ORDERED: LEVOFLOXACIN 500 MG TABLET PO ONE (22:05)
[2017-09-19] MEDS ORDERED: DEXTROSE 50%-WATER 25 GM/50 ML DISP.SYRIN IV PRN ×2 (22:08)
[2017-09-19] MEDS ORDERED: GLUCAGON,HUMAN RECOMB 1 MG INJ IM PRN (22:08)
[2017-09-19] MEDS ORDERED: DEXTROSE 40% GEL 15 GM TUBE PO PRN ×2 (22:08)
[2017-09-19 22:55] LABS: TROPONIN I 0.029 ng/mL
[2017-09-20] MEDS: HEPARIN SOD (PORCINE) 5,000 UNIT/ML 1 ML SYRINGE SUBCUT SCH ×4 (00:03→22:50)
--- NOTE | 2017-09-20 00:15 | PDOC H&P ---
History of Present Illness Admission Date/PCP: 09/19/17 20:01 MERCEDES STRANGE DO Patient complains of: Chest pain and worsening shortness of breath for unknown duration. 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 She was last admitted here here from 08/31/2017 till 09/10/2017 with the same problem. It was very difficult to obtain an accurate history from her so most of the history was obtained from the ED note. According to the ED note, the patient was seen by home health today and she was found to be hypoxic and her blood pressure was 80/50 when checked by EMS. She received one Duoneb treatment and 500cc NS bolus on route to the hospital per ED physician. According to the patient, she started having chest pain, pressure-like at rest while sitting at her computer. It was nonradiating and lasted about 30 minutes with no alleviating or relieving factors. She also was having worsening shortness of breath, palpitations and diaphoresis but no nausea or vomiting. She said that she felt presyncopal. She also has been having fever ( undocumented) and chills with a productive cough of greenish sputum (unknown duration). She denied any sick contact or recent travels. She is up-to-date with her flu vaccine (not sure about her pneumonia vaccine). She she continued to use her nebulizer 3 times a day and she said that she was compliant with her medications. The patient also complained of abdominal pain across the midsection secondary to the heparin injections she received during her last hospitalization. She denied any diarrhea or constipation. Her last bowel movement was this a.m. with somewhat hard, nonbloody stool. She also complained of urinary frequency but no dysuria or hematuria. She is mostly wheelchair-bound but she uses a walker to transfer. In the ED, her temperature was 98.2, heart rate 121, respiratory rate 20, blood pressure 98/57 and her oxygen saturation was not documented. Her troponin is pending, her WBC was 10.5 and her CXR did not show any acute changes. Her VBG showed pH 7.36 and PCO2 72.3 so she was started on BIPAP. She received another DuoNeb treatments and 125 mg IV Solu-Medrol x1 with improvement in her breathing. Past Medical History Cardiac Medical History: Reports: Congestive Heart Failure, Coronary Artery Disease, Myocardial Infarction, Hypertension, Other - Type 2 diabetes mellitus Denies: DVT, Hyperlipidema, Pulmonary Embolism Pulmonary Medical History: Reports: Asthma, Bronchitis, Chronic Obstructive Pulmonary Disease (COPD) - 2 L nasal home oxygen, Pneumonia, Respiratory Failure - Chronic respiratory failure Denies: Sleep Apnea, Tuberculosis Neurological Medical History: Denies: Seizures Endocrine Medical History: Reports: Hypothyroidism Denies: Diabetes Mellitus Type 1, Diabetes Mellitus Type 2, Hyperthyroidism Renal/ Medical History: Denies: End Stage Renal Disease Malignancy Medical History: Reports: Brain Cancer - Lung cancer with brain metastases, 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 GI Medical History: Reports: Gastroesophageal Reflux Disease Denies: Cirrhosis, Hepatitis Musculoskeltal Medical History: Reports: Arthritis Psychiatric Medical History: Reports: Dementia, Depression Denies: Bipolar Disorder Hematology: Reports: Anemia, Bleeding Tendencies Infectious Medical History: Reports: Clostridium Difficile Past Surgical History Past Surgical History: Reports: Cholecystectomy, Orthopedic Surgery - Foot surgery, Other - cataract bilateral Social History Smoking Status: Former Smoker Cigarettes Packs Per Day: 2 Number of Years Smokin Frequency of Alcohol Use: None Hx Recreational Drug Use: No Drugs: None Hx Prescription Drug Abuse: No Family History Family History: COPD, Malignancy - Lung cancer Parental Family History Reviewed: Yes - Coronary artery disease Children Family History Reviewed: No Sibling(s) Family History Reviewed.: Yes Medication/Allergy Allergies/Adverse Reactions: azithromycin Allergy (Verified 08/31/17 02:36) amoxicillin [Amoxicillin] Adverse Reaction (Verified 07/26/17 11:39) visual hallucinations erythromycin base [Erythromycin Base] Adverse Reaction (Verified 07/26/17 11:39) visual hallucinations Potassium Clavulanate * [From Augmentin] Adverse Reaction (Verified 07/26/17 11: 39) visual hallucinations Review of Systems Constitutional: PRESENT: as per HPI Eyes: PRESENT: as per HPI. ABSENT: visual disturbances Ears: PRESENT: as per HPI. ABSENT: hearing changes Nose, Mouth, and Throat: PRESENT: as per HPI Breasts: PRESENT: as per HPI Cardiovascular: PRESENT: as per HPI. ABSENT: chest pain, dyspnea on exertion, edema, orthropnea, palpitations Respiratory: PRESENT: as per HPI. ABSENT: cough, hemoptysis Gastrointestinal: PRESENT: as per HPI. ABSENT: abdominal pain, constipation, diarrhea, hematemesis, hematochezia, nausea, vomiting Genitourinary: PRESENT: as per HPI. ABSENT: dysuria, hematuria Musculoskeletal: PRESENT: as per HPI. ABSENT: joint swelling Integumentary: PRESENT: as per HPI. ABSENT: rash, wounds Neurological: PRESENT: as per HPI. ABSENT: abnormal gait, abnormal speech, confusion, dizziness, focal weakness, syncope Psychiatric: PRESENT: as per HPI. ABSENT: anxiety, depression, homidical ideation, suicidal ideation Endocrine: PRESENT: as per HPI. ABSENT: cold intolerance, heat intolerance, polydipsia, polyuria Hematologic/Lymphatic: PRESENT: as per HPI. ABSENT: easy bleeding, easy bruising Allergic/Immunologic: PRESENT: as per HPI Physical Exam Vital Signs: Temp Pulse Resp BP Pulse Ox 98.2 F 19 123/84 100 09/19/17 17:59 09/19/17 21:01 09/19/17 21:01 09/19/17 21:01 General appearance: PRESENT: no acute distress - On BiPAP, mild distress, well- developed, well-nourished Head exam: PRESENT: atraumatic, normocephalic Eye exam: PRESENT: conjunctiva pink, PERRLA. ABSENT: scleral icterus Mouth exam: PRESENT: dry mucosa - Mild, moist, other - No oral lesions or thrush Neck exam: PRESENT: full ROM. ABSENT: carotid bruit, JVD, lymphadenopathy, thyromegaly Respiratory exam: PRESENT: decreased breath sounds, rhonchi - Bilateral. ABSENT : wheezes Cardiovascular exam: PRESENT: +S1, tachycardia, other - S1 and S2 normal Pulses: PRESENT: normal dorsalis pedis pul GI/Abdominal exam: PRESENT: normal bowel sounds, soft, other - Obese. ABSENT: distended, guarding, organolmegaly, rebound, tenderness Rectal exam: PRESENT: deferred Gentrourinary exam: PRESENT: other - Deferred Extremities exam: PRESENT: clubbing, pedal edema, +1 edema. ABSENT: calf tenderness Musculoskeletal exam: PRESENT: other - Able to move both upper and lower extremities. Neurological exam: PRESENT: alert, awake, oriented to person, oriented to place , oriented to situation, CN II-XII grossly intact - Except C N VIII. ABSENT: motor sensory deficit Psychiatric exam: PRESENT: appropriate affect, normal mood. ABSENT: homicidal ideation, suicidal ideation Skin exam: PRESENT: dry, intact, warm. ABSENT: cyanosis, rash Results Impressions: Chest X-Ray 09/19/17 18:05 IMPRESSION: NO ACUTE RADIOGRAPHIC FINDING IN THE CHEST. NO SIGNIFICANT CHANGE FROM PRIOR STUDY. Assessment & Plan - Diagnosis (1) Acute and chronic respiratory failure, unspecified whether with hypoxia or hypercapnia Qualifiers: Respiratory failure complication: hypoxia and hypercapnia Qualified Code(s) : J96.21 - Acute and chronic respiratory failure with hypoxia; J96.22 - Acute and chronic respiratory failure with hypercapnia; J96.22 - Acute and chronic respiratory failure with hypercapnia; J96.22 - Acute and chronic respiratory failure with hypercapnia Is this a current diagnosis for this admission?: Yes Plan: Given oxygen desaturation and tachypnea with PCO2 of 72 prior to admission requiring BiPAP, secondary to COPD exacerbation most likely, less likely CHF exacerbation, pneumonia or PE (since her symptoms improved). Chest x-ray reviewed. We will check procalcitonin and proBNP. Will continue DuoNeb treatments, IV Solu-Medrol and Levaquin. Of note, the patient was seen in the ED on 09/18/2017 where a venous doppler US of her lower extremities was done negative for DVT. She also had a CTA chest on 09/13/2017 which did not show any PE. (2) Chest pain at rest Is this a current diagnosis for this admission?: Yes Plan: Possibly pleuritic and/or cardiac. We will continue to cycle cardiac enzymes and recheck 12-lead EKG. She had an echocardiogram on 08/14/2017 which showed mild pulmonary hypertension (EF=60%) (3) Type 2 diabetes mellitus Qualifiers: Diabetes mellitus complication status: with unspecified complications Diabetes mellitus [facility] insulin use: without [facility] use Qualified Code( s): E11.8 - Type 2 diabetes mellitus with unspecified complications Is this a current diagnosis for this admission?: No Plan: Will start lispro sliding scale. The patient mentioned that she is only on oral hypoglycemic medications. Her home medications' list needs to be clarified in a.m. (4) Essential hypertension Is this a current diagnosis for this admission?: No Plan: The patient was reportedly hypotensive prior to admission with SBP in the 80's per ED physician. She was given a 500cc NS bolus by EMS per ED physician with improvement of her blood pressure. Will continue to monitor overnight. Her BP home medications should be clarified in a.m. (5) Lung cancer metastatic to brain Is this a current diagnosis for this admission?: No Plan: The pain was seen by palliative care during her most recent hospitalization and code status was discussed. I discussed her code status this time as well, she remains full code (6) Tachycardia Is this a current diagnosis for this admission?: Yes Plan: secondary to respiratory distress most likely, improved. - Time Time Spent: Greater than 70 Minutes Anticipated discharge: Home with Homehealth - Inpatient Certification Based on my medical assessment, after consideration of the patient's comorbidities, presenting symptoms, or acuity I expect that the services needed warrant INPATIENT care.: Yes I certify that my determination is in accordance with my understanding of Medicare's requirements for reasonable and necessary INPATIENT services [42 CFR 412.3e].: Yes Medical Necessity: Need Close Monitoring Due to Risk of Patient Decompensation, Other
[2017-09-20] MEDS: IPRATROPIUM/ALBUTEROL 0.5-2.5 MG/3 ML AMPUL NEB SCH ×4 (01:27→20:31)
[2017-09-20] MEDS: METHYLPREDNISOLONE INJ 40 MG/1 ML SDV IV SCH ×3 (01:28→17:08)
[2017-09-20 07:07] LABS: ANION GAP 6 (5-19); BLOOD UREA NITROGEN 23 mg/dL (7-20); CALCIUM 9.7 mg/dL (8.4-10.2); CARBON DIOXIDE 33 mmol/L (22-30); CHLORIDE 98 mmol/L (98-107); GLUCOSE 177 mg/dL (75-110); SODIUM 136.8 mmol/L (137-145)
[2017-09-20 07:19] LABS: HEMATOCRIT 28.9 % (36.0-47.0); HEMOGLOBIN 9.8 g/dL (12.0-15.5); MEAN CORPUSCULAR HEMOGLOBIN 32.6 pg (27.0-33.4); MEAN CORPUSCULAR VOLUME 96 fl (80-97); PLATELET COUNT 143 10^3/uL (150-450); RED BLOOD COUNT 3.01 10^6/uL (3.72-5.28); WHITE BLOOD COUNT 9.9 10^3/uL (4.0-10.5)
--- NOTE | 2017-09-20 07:59 | EKG REPORT ---
SEVERITY:- ABNORMAL ECG - SINUS TACHYCARDIA ATRIAL PREMATURE COMPLEX RIGHT BUNDLE BRANCH BLOCK : Confirmed by: Issa Martinez MD 20-Sep-2017 07:59:19
[2017-09-20 08:00] LABS: POTASSIUM 4.9 mmol/L (3.6-5.0)
[2017-09-20] MEDS: INSULIN LISPRO 100 UNIT/ML 3 ML VIAL SUBCUT PRN ×3 (12:38→22:58)
--- NOTE | 2017-09-20 18:32 | PDOC PROGRESS REPORT ---
Subjective Progress Note for:: 09/20/17 Subjective:: She's pleasantly confused. She offers no specific complaints. Reason For Visit: COPD EXACERBATION Physical Exam Vital Signs: Temp Pulse Resp BP Pulse Ox 99.0 F 118 H 20 119/68 100 09/20/17 15:33 09/20/17 15:33 09/20/17 15:33 09/20/17 15:33 09/20/17 15:33 Intake & Output 09/19/17 09/20/17 09/21/17 06:59 06:59 06:59 Intake Total 0 160 Output Total 300 Balance -300 160 Weight 109.2 kg General appearance: PRESENT: no acute distress Head exam: PRESENT: atraumatic, normocephalic Eye exam: PRESENT: EOMI, PERRLA Respiratory exam: PRESENT: symmetrical, unlabored, wheezes. ABSENT: accessory muscle use Cardiovascular exam: PRESENT: RRR. ABSENT: diastolic murmur, rubs, systolic murmur GI/Abdominal exam: PRESENT: normal bowel sounds, soft. ABSENT: distended, guarding, mass, organolmegaly, rebound, tenderness Neurological exam: PRESENT: alert, oriented to person. ABSENT: oriented to place, oriented to time, oriented to situation Skin exam: PRESENT: dry, intact, warm. ABSENT: cyanosis, rash Results Laboratory Results: 09/20/17 05:30 09/20/17 05:30 09/20/17 09/20/17 05:30 05:30 WBC 9.9 RBC 3.01 L Hgb 9.8 L Hct 28.9 L MCV 96 MCH 32.6 MCHC 34.0 RDW 16.0 H Plt Count 143 L Sodium 136.8 L Potassium 4.9 D Chloride 98 Carbon Dioxide 33 H Anion Gap 6 BUN 23 H Creatinine 0.74 Est GFR ( Amer) > 60 Est GFR (Non-Af Amer) > 60 Glucose 177 H Calcium 9.7 Magnesium 1.9 09/19/17 09/20/17 09/20/17 22:15 05:30 10:49 Troponin I 0.029 0.025 0.021 NT-Pro-B Natriuret Pep 445 Impressions: Chest X-Ray 09/19/17 18:05 IMPRESSION: NO ACUTE RADIOGRAPHIC FINDING IN THE CHEST. NO SIGNIFICANT CHANGE FROM PRIOR STUDY. Assessment & Plan - Diagnosis (1) Acute and chronic respiratory failure with hypercapnia Is this a current diagnosis for this admission?: Yes Plan: Secondary to COPD. Continue oxygen, bronchodilators, and steroids. (2) COPD (chronic obstructive pulmonary disease) Qualifiers: COPD type: COPD with acute exacerbation Qualified Code(s): J44.1 - Chronic obstructive pulmonary disease with (acute) exacerbation Is this a current diagnosis for this admission?: Yes Plan: See above. (3) Essential hypertension Is this a current diagnosis for this admission?: No (4) Lung cancer metastatic to brain Is this a current diagnosis for this admission?: Yes Plan: Oncology outpatient management (5) Type 2 diabetes mellitus Qualifiers: Diabetes mellitus complication status: with unspecified complications Diabetes mellitus terminal carman insulin use: without terminal carman use Qualified Code( s): E11.8 - Type 2 diabetes mellitus with unspecified complications Is this a current diagnosis for this admission?: No Plan: Exacerbated by steroids. Continue sliding scale for insulin for now. (6) Dementia Qualifiers: Dementia type: unspecified type Dementia behavioral disturbance: without behavioral disturbance Qualified Code(s): F03.90 - Unspecified dementia without behavioral disturbance Is this a current diagnosis for this admission?: Yes Plan: Stable (7) HTN (hypertension) Qualifiers: Hypertension type: essential hypertension Qualified Code(s): I10 - Essential (primary) hypertension - Time Time Spent with patient: 15-24 minutes Anticipated discharge: Home - Inpatient Certification Based on my medical assessment, after consideration of the patient's comorbidities, presenting symptoms, or acuity I expect that the services needed warrant INPATIENT care.: Yes I certify that my determination is in accordance with my understanding of Medicare's requirements for reasonable and necessary INPATIENT services [42 CFR 412.3e].: Yes Medical Necessity: Failure to Improve With Outpatient Therapy, Significant Comorbidiites Make Outpatient Treatment Too Risky, Need for Nebulizer Therapy and Monitoring of Response
[2017-09-20] MEDS ORDERED: OLANZAPINE INJ/PF 10 MG SDV IM PRN (22:00)
[2017-09-20 22:20] LABS: ARTERIAL BLOOD BASE EXCESS 6.4 mmol/L; ARTERIAL BLOOD FIO2 2L; ARTERIAL BLOOD H2CO3 1.45 mmol/L (1.05-1.35); ARTERIAL BLOOD HCO3 31.9 mmol/L (20-26); ARTERIAL BLOOD O2 SATURATION 97.9 % (94-98); ARTERIAL BLOOD PCO2 48.3 mmHg (35-45); ARTERIAL BLOOD PH 7.44 (7.35-7.45); ARTERIAL BLOOD TOTAL CO2 33.4 mmol/L (21-25)
[2017-09-20] MEDS: LEVOFLOXACIN 500 MG TABLET PO SCH (22:50)
[2017-09-21] MEDS: IPRATROPIUM/ALBUTEROL 0.5-2.5 MG/3 ML AMPUL NEB SCH ×4 (02:10→20:20)
[2017-09-21] MEDS: METHYLPREDNISOLONE INJ 40 MG/1 ML SDV IV SCH ×3 (02:34→17:26)
[2017-09-21] MEDS: HEPARIN SOD (PORCINE) 5,000 UNIT/ML 1 ML SYRINGE SUBCUT SCH ×3 (05:26→22:12)
[2017-09-21 05:58] LABS: HEMATOCRIT 27.3 % (36.0-47.0); HEMOGLOBIN 9.4 g/dL (12.0-15.5); MEAN CORPUSCULAR HEMOGLOBIN 32.8 pg (27.0-33.4); MEAN CORPUSCULAR HGB CONC 34.3 g/dL (32.0-36.0); MEAN CORPUSCULAR VOLUME 96 fl (80-97); PLATELET COUNT 135 10^3/uL (150-450); RED BLOOD COUNT 2.86 10^6/uL (3.72-5.28); RED CELL DISTRIBUTION WIDTH 15.9 % (11.5-14.0); WHITE BLOOD COUNT 7.4 10^3/uL (4.0-10.5)
[2017-09-21 06:18] LABS: ANION GAP 6 (5-19); BLOOD UREA NITROGEN 28 mg/dL (7-20); CALCIUM 9.6 mg/dL (8.4-10.2); CARBON DIOXIDE 35 mmol/L (22-30); CHLORIDE 102 mmol/L (98-107); GLUCOSE 165 mg/dL (75-110); POTASSIUM 4.4 mmol/L (3.6-5.0); SODIUM 142.8 mmol/L (137-145)
--- NOTE | 2017-09-21 11:34 | Physician Advisory Note ---
Physician Advisor ProgressNote .: Pursuant to the plan for [facility], I have reviewed the medical record for this patient. Physician Advisor Statement: Nice documentation of s/s evidence for Ac exac COPD & Chronic Resp Failure. Please consider documenting, if you agree: 1. "CP, suspect due to " 2. "mild pulmonary HTN" 3. "DM -2 with hyperglycemia due to steroids" 4. Please explicitly document if pt had increased work of breathing initially associated w/acute hypercapnea + acute resp acidosis, -or - state whether "Acute Hypercapneic Resp Failure was ruled out". - Was Bipap used for "suspected STEPHANIE", or because of increased difficulty breathing, or ...? Thanks! CK
[2017-09-21] MEDS: INSULIN LISPRO 100 UNIT/ML 3 ML VIAL SUBCUT PRN ×2 (12:43→16:57)
--- NOTE | 2017-09-21 14:31 | PDOC PROGRESS REPORT ---
Subjective Progress Note for:: 09/21/17 Subjective:: She's pleasantly confused. She offers no specific complaints. Reason For Visit: COPD EXACERBATION Physical Exam Vital Signs: Temp Pulse Resp BP Pulse Ox 97.9 F 106 H 16 126/73 H 99 09/21/17 12:24 09/21/17 14:14 09/21/17 14:14 09/21/17 12:24 09/21/17 14:14 Intake & Output 09/20/17 09/21/17 09/22/17 06:59 06:59 06:59 Intake Total 0 1635 Output Total 300 2700 Balance -300 -1065 Weight 109.2 kg 90.6 kg Results Laboratory Results: 09/21/17 05:36 09/21/17 05:36 09/20/17 09/21/17 09/21/17 21:28 05:36 05:36 WBC 7.4 RBC 2.86 L Hgb 9.4 L Hct 27.3 L MCV 96 MCH 32.8 MCHC 34.3 RDW 15.9 H Plt Count 135 L Carbonic Acid 1.45 H HCO3/H2CO3 Ratio 22:1 ABG pH 7.44 ABG pCO2 48.3 H ABG pO2 104.0 H ABG HCO3 31.9 H ABG O2 Saturation 97.9 ABG Base Excess 6.4 FiO2 2L Sodium 142.8 Potassium 4.4 Chloride 102 Carbon Dioxide 35 H Anion Gap 6 BUN 28 H Creatinine 0.87 Est GFR ( Amer) > 60 Est GFR (Non-Af Amer) > 60 Glucose 165 H Calcium 9.6 09/19/17 09/20/17 09/20/17 22:15 05:30 10:49 Troponin I 0.029 0.025 0.021 NT-Pro-B Natriuret Pep 445 Impressions: Chest X-Ray 09/19/17 18:05 IMPRESSION: NO ACUTE RADIOGRAPHIC FINDING IN THE CHEST. NO SIGNIFICANT CHANGE FROM PRIOR STUDY. Assessment & Plan - Diagnosis (1) Acute and chronic respiratory failure with hypercapnia Is this a current diagnosis for this admission?: Yes Plan: Secondary to COPD. Continue oxygen, bronchodilators, and steroids. (2) COPD (chronic obstructive pulmonary disease) Qualifiers: COPD type: COPD with acute exacerbation Qualified Code(s): J44.1 - Chronic obstructive pulmonary disease with (acute) exacerbation Is this a current diagnosis for this admission?: Yes Plan: See above, complicated by mild pulmonary hypertension documented by echocardiogram July 2017. (3) Essential hypertension Is this a current diagnosis for this admission?: No (4) Lung cancer metastatic to brain Is this a current diagnosis for this admission?: Yes Plan: Oncology outpatient management (5) Type 2 diabetes mellitus Qualifiers: Diabetes mellitus complication status: with unspecified complications Diabetes mellitus nursing home insulin use: without nursing home use Qualified Code( s): E11.8 - Type 2 diabetes mellitus with unspecified complications Is this a current diagnosis for this admission?: No Plan: Hyperglycemia due to steroids. Continue sliding scale for insulin for now. (6) Dementia Qualifiers: Dementia type: unspecified type Dementia behavioral disturbance: without behavioral disturbance Qualified Code(s): F03.90 - Unspecified dementia without behavioral disturbance Is this a current diagnosis for this admission?: Yes Plan: Stable (7) HTN (hypertension) Qualifiers: Hypertension type: essential hypertension Qualified Code(s): I10 - Essential (primary) hypertension - Time Time Spent with patient: 15-24 minutes Medications reviewed and adjusted accordingly: Yes Anticipated discharge: Home with Homehealth - Inpatient Certification Based on my medical assessment, after consideration of the patient's comorbidities, presenting symptoms, or acuity I expect that the services needed warrant INPATIENT care.: Yes I certify that my determination is in accordance with my understanding of Medicare's requirements for reasonable and necessary INPATIENT services [42 CFR 412.3e].: Yes Medical Necessity: Failure to Improve With Outpatient Therapy, Significant Comorbidiites Make Outpatient Treatment Too Risky, Need for Nebulizer Therapy and Monitoring of Response
[2017-09-21] MEDS: LEVOFLOXACIN 500 MG TABLET PO SCH (22:11)
[2017-09-22] MEDS: METHYLPREDNISOLONE INJ 40 MG/1 ML SDV IV SCH ×2 (01:45→09:37)
[2017-09-22] MEDS: IPRATROPIUM/ALBUTEROL 0.5-2.5 MG/3 ML AMPUL NEB SCH ×4 (02:14→20:34)
[2017-09-22] MEDS: HEPARIN SOD (PORCINE) 5,000 UNIT/ML 1 ML SYRINGE SUBCUT SCH ×3 (05:17→21:56)
[2017-09-22 07:01] LABS: HEMATOCRIT 29.3 % (36.0-47.0); HEMOGLOBIN 9.9 g/dL (12.0-15.5); MEAN CORPUSCULAR HEMOGLOBIN 32.8 pg (27.0-33.4); MEAN CORPUSCULAR HGB CONC 33.9 g/dL (32.0-36.0); MEAN CORPUSCULAR VOLUME 97 fl (80-97); PLATELET COUNT 139 10^3/uL (150-450); RED BLOOD COUNT 3.03 10^6/uL (3.72-5.28); RED CELL DISTRIBUTION WIDTH 16.4 % (11.5-14.0); WHITE BLOOD COUNT 7.1 10^3/uL (4.0-10.5)
[2017-09-22 07:23] LABS: BLOOD UREA NITROGEN 40 mg/dL (7-20); CALCIUM 9.2 mg/dL (8.4-10.2); CHLORIDE 104 mmol/L (98-107); GLUCOSE 183 mg/dL (75-110); POTASSIUM 4.8 mmol/L (3.6-5.0)
[2017-09-22 08:04] LABS: ANION GAP 7 (5-19); CARBON DIOXIDE 31 mmol/L (22-30); SODIUM 141.6 mmol/L (137-145)
--- NOTE | 2017-09-22 10:46 | PDOC PROGRESS REPORT ---
Subjective Progress Note for:: 09/22/17 Subjective:: The patient is a 72-year-old female who has a history of small cell lung cancer which has most metastasized to the brain. She was admitted on the with hypotension, acute on chronic hypoxic and hypercarbic respiratory failure felt to be secondary to COPD with exacerbation. She remains pleasantly confused. She is without any complaints today. Reason For Visit: COPD EXACERBATION Physical Exam Vital Signs: Temp Pulse Resp BP Pulse Ox 98.4 F 94 18 138/81 H 100 09/22/17 07:26 09/22/17 07:52 09/22/17 07:52 09/22/17 07:26 09/22/17 07:26 Intake & Output 09/21/17 09/22/17 09/23/17 06:59 06:59 06:59 Intake Total 1635 1724 Output Total 2700 1200 Balance -1065 524 Weight 90.6 kg 90.5 kg Additional comments: The patient is a morbidly obese female who does not appear to be in any distress. She appears to be her stated age of 72. Her facial appearance is unremarkable. Her lungs demonstrate bilateral rhonchi which are both anterior and posterior. Her cardiac exam demonstrates a regular rate and rhythm without murmurs, gallops or rubs. The abdomen is obese but soft. Bowel sounds are present in the lower quadrants. She does not have guarding or rebound noted and there are no hernias or masses present. The lower extremities are warm to touch. No pitting edema is present. The skin is warm, dry and intact without lesions or rashes. Results Laboratory Results: 09/22/17 06:27 09/22/17 06:27 09/22/17 09/22/17 06:27 06:27 WBC 7.1 RBC 3.03 L Hgb 9.9 L Hct 29.3 L MCV 97 MCH 32.8 MCHC 33.9 RDW 16.4 H Plt Count 139 L Sodium 141.6 Potassium 4.8 Chloride 104 Carbon Dioxide 31 H Anion Gap 7 BUN 40 H Creatinine 0.91 Est GFR ( Amer) > 60 Est GFR (Non-Af Amer) > 60 Glucose 183 H Calcium 9.2 09/19/17 09/20/17 09/20/17 22:15 05:30 10:49 Troponin I 0.029 0.025 0.021 NT-Pro-B Natriuret Pep 445 Impressions: Chest X-Ray 09/19/17 18:05 IMPRESSION: NO ACUTE RADIOGRAPHIC FINDING IN THE CHEST. NO SIGNIFICANT CHANGE FROM PRIOR STUDY. Assessment & Plan - Diagnosis (1) Acute and chronic respiratory failure with hypercapnia Is this a current diagnosis for this admission?: Yes Plan: The patient has acute on chronic respiratory failure with hypoxia and hypercarbia. She was initially treated with BiPAP. She is now on supplemental oxygen. We will continue as needed BiPAP. (2) Lung cancer metastatic to brain Is this a current diagnosis for this admission?: Yes Plan: The patient will continue to follow-up with her oncologist after discharge. (3) Tachycardia Is this a current diagnosis for this admission?: Yes Plan: The patient has mild tachycardia. While this is likely associated with her respiratory failure I have restarted her amlodipine. 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 She was not taking any oral medications for diabetes. We will continue her on sliding scale while she is here. (5) Anemia Qualifiers: Anemia type: unspecified type Qualified Code(s): D64.9 - Anemia, unspecified Is this a current diagnosis for this admission?: Yes Plan: Stable. (6) COPD exacerbation Is this a current diagnosis for this admission?: Yes Plan: Continue antibiotics and bronchodilators. Today, IV methyl prednisolone was discontinued and I started oral prednisone in anticipation of discharge. (7) HTN (hypertension) Qualifiers: Hypertension type: essential hypertension Qualified Code(s): I10 - Essential (primary) hypertension Is this a current diagnosis for this admission?: Yes Plan: Amlodipine and lisinopril will restarted today. - Time Time Spent with patient: 25-34 minutes - Inpatient Certification Medical Necessity: Significant Comorbidiites Make Outpatient Treatment Too Risky , Need Close Monitoring Due to Risk of Patient Decompensation, Risk of Complication if Not Cared For in Hospital - Plan Summary Plan Summary: Discharge is anticipated in 24-48 hours. I would like to ambulate the patient today. She has a high risk of relapse if discharged too quickly. Also, she is not able to ambulate and meet her basic needs we may need to re-entertain whether or not she needs a formal senior care facility.
[2017-09-22] MEDS ORDERED: AMLODIPINE BESYLATE 2.5 MG TABLET PO ONE ×2 (12:00→16:00)
[2017-09-22] MEDS: INSULIN LISPRO 100 UNIT/ML 3 ML VIAL SUBCUT PRN ×2 (18:11→23:04)
[2017-09-22] MEDS: PREDNISONE 20 MG TABLET PO SCH (18:11)
[2017-09-22] MEDS: LEVOFLOXACIN 500 MG TABLET PO SCH (21:56)
[2017-09-23] MEDS: IPRATROPIUM/ALBUTEROL 0.5-2.5 MG/3 ML AMPUL NEB SCH ×4 (02:32→20:21)
[2017-09-23] MEDS: HEPARIN SOD (PORCINE) 5,000 UNIT/ML 1 ML SYRINGE SUBCUT SCH ×3 (06:01→21:47)
[2017-09-23] MEDS: PREDNISONE 20 MG TABLET PO SCH ×2 (10:15→18:28)
[2017-09-23] MEDS: AMLODIPINE BESYLATE 2.5 MG TABLET PO SCH (10:15)
[2017-09-23] MEDS: LISINOPRIL 5 MG TABLET PO SCH (10:16)
--- NOTE | 2017-09-23 12:55 | PDOC DISCHARGE SUMMARY ---
General - Admit/Disc Date/PCP Admission Date/Primary Care Provider: 09/19/17 20:01 MERCEDES LR[facility], Discharge Date: 09/23/17 - Discharge Diagnosis (1) Acute and chronic respiratory failure with hypercapnia Is this a current diagnosis for this admission?: Yes (2) Lung cancer metastatic to brain Is this a current diagnosis for this admission?: Yes (3) Tachycardia Is this a current diagnosis for this admission?: Yes (4) Type 2 diabetes mellitus Is this a current diagnosis for this admission?: Yes (5) Anemia Is this a current diagnosis for this admission?: Yes (6) COPD exacerbation Is this a current diagnosis for this admission?: Yes (7) HTN (hypertension) Is this a current diagnosis for this admission?: Yes - Additional Information Discharge Diet: Diabetic Discharge Activity: Balance Activity w/Rest Prescriptions: Levofloxacin [Levaquin 500 mg Tablet] 500 mg PO QHS 6 Days #6 tablet Prednisone [Deltasone 20 mg Tablet] 20 mg PO DAILY 6 Days #6 tablet Home Medications: Albuterol Sulfate [Proair HFA Inhalation Aerosol 8.5 gm MDI] 1 puff IH Q4 PRN Amlodipine Besylate [Norvasc 2.5 mg Tablet] 2.5 mg PO DAILY 09/20/17 Furosemide [Lasix 20 mg Tablet] 20 mg PO BID 09/20/17 Ibuprofen [Motrin 600 mg Tablet] 600 mg PO Q8H 09/20/17 Lisinopril [Prinivil 5 mg Tablet] 5 mg PO DAILY 09/20/17 Salmeterol Xinafoate [Serevent Diskus 50 Mcg/Dose 28 Dose/Diskus] 50 mcg IH Q12 09/20/17 Levofloxacin [Levaquin 500 mg Tablet] 500 mg PO QHS 6 Days #6 tablet 09/23/17 Prednisone [Deltasone 20 mg Tablet] 20 mg PO DAILY 6 Days #6 tablet 09/23/17 History of Present Illness History of Present Illness: TRENTON MCCOY is a 72 year old female with history of 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 She was last admitted here here from 08/31/2017 till 09/10/2017 with the same problem. It was very difficult to obtain an accurate history from her so most of the history was obtained from the ED note. According to the ED note, the patient was seen by home health today and she was found to be hypoxic and her blood pressure was 80/50 when checked by EMS. She received one Duoneb treatment and 500cc NS bolus on route to the hospital per ED physician. According to the patient, she started having chest pain, pressure-like at rest while sitting at her computer. It was nonradiating and lasted about 30 minutes with no alleviating or relieving factors. She also was having worsening shortness of breath, palpitations and diaphoresis but no nausea or vomiting. She said that she felt presyncopal. She also has been having fever ( undocumented) and chills with a productive cough of greenish sputum (unknown duration). She denied any sick contact or recent travels. She is up-to-date with her flu vaccine (not sure about her pneumonia vaccine). She she continued to use her nebulizer 3 times a day and she said that she was compliant with her medications. The patient also complained of abdominal pain across the midsection secondary to the heparin injections she received during her last hospitalization. She denied any diarrhea or constipation. Her last bowel movement was this a.m. with somewhat hard, nonbloody stool. She also complained of urinary frequency but no dysuria or hematuria. She is mostly wheelchair-bound but she uses a walker to transfer. In the ED, her temperature was 98.2, heart rate 121, respiratory rate 20, blood pressure 98/57 and her oxygen saturation was not documented. Her troponin is pending, her WBC was 10.5 and her CXR did not show any acute changes. Her VBG showed pH 7.36 and PCO2 72.3 so she was started on BIPAP. She received another DuoNeb treatments and 125 mg IV Solu-Medrol x1 with improvement in her breathing. Hospital Course Hospital Course: During this hospitalization the patient was treated with intravenous corticosteroids followed by oral prednisone. She was also treated with Levaquin. Sputum culture was not obtained. Initially, patient required BiPAP. SHe appears to have chronic hypercarbic respiratory failure. she will be discharged on home oxygen which is already in place. The patient appears to be extremely deconditioned and weak. I told her that I do not think that she is safe to go home alone. I recommended that she consider discharge to rehabilitation for short-term rehabilitation, but, she refused. Therefore, per her request she will be discharged home today with home health. Patient was noted to have some hyperglycemia during this hospitalization. This can be attributed to her corticosteroids. Physical Exam Vital Signs: Temp Pulse Resp BP Pulse Ox 98.5 F 102 H 19 143/82 H 98 09/23/17 04:00 09/23/17 08:39 09/23/17 08:39 09/23/17 04:00 09/23/17 08:39 Intake & Output 09/22/17 09/23/17 09/24/17 06:59 06:59 06:59 Intake Total 1724 1224 Output Total 1200 1325 Balance 524 -101 Weight 90.5 kg 90.4 kg Additional comments: The patient is an obese white female. She is wide awake. She is asking me when she can go home. She is aware of her diagnosis of COPD and underlying small cell lung cancer. She assures me that since her son lives next door to her she will have enough resources at home. Her mentation appears to be appropriate. Her lung sounds demonstrate rhonchi in the posterior lung curtis, but, the most significant finding is poor air movement. Cardiac exam is regular without murmurs, gallops or rubs. The abdomen is noted to be obese but soft. Bowel sounds are present in the lower quadrants. She does not have any guarding or rebound noted and there are no hernias or masses. Lower extremities are obese but otherwise unremarkable. Skin is clean, warm, dry and intact without lesions or rashes. Results Laboratory Results: 09/22/17 06:27 09/22/17 06:27 09/19/17 09/20/17 09/20/17 22:15 05:30 10:49 Troponin I 0.029 0.025 0.021 NT-Pro-B Natriuret Pep 445 Impressions: Chest X-Ray 09/19/17 18:05 IMPRESSION: NO ACUTE RADIOGRAPHIC FINDING IN THE CHEST. NO SIGNIFICANT CHANGE FROM PRIOR STUDY. Qualifiers - * PATEINT BEING DISCHARGED WITH ANY OF THE FOLLOWING DIAGNOSIS?: No Plan Discharge Plan: Patient will be discharged to home with home health services. She will need to follow-up with her primary care provider in 1 week. She will complete her prednisone taper and Levaquin after discharge. Time Spent: Less than 30 Minutes
[2017-09-23] MEDS: LEVOFLOXACIN 500 MG TABLET PO SCH (21:47)
[2017-09-23] MEDS: INSULIN LISPRO 100 UNIT/ML 3 ML VIAL SUBCUT PRN (23:07)
[2017-09-24] MEDS: IPRATROPIUM/ALBUTEROL 0.5-2.5 MG/3 ML AMPUL NEB SCH ×4 (02:03→20:19)
[2017-09-24] MEDS: HEPARIN SOD (PORCINE) 5,000 UNIT/ML 1 ML SYRINGE SUBCUT SCH ×3 (05:46→22:09)
[2017-09-24] MEDS: PREDNISONE 20 MG TABLET PO SCH ×2 (11:04→19:01)
[2017-09-24] MEDS: AMLODIPINE BESYLATE 2.5 MG TABLET PO SCH (11:04)
[2017-09-24] MEDS: LISINOPRIL 5 MG TABLET PO SCH (11:05)
--- NOTE | 2017-09-24 15:57 | PDOC PROGRESS REPORT ---
Subjective Progress Note for:: 09/24/17 Subjective:: The patient is a 72-year-old female who has a history of small cell lung cancer which has most metastasized to the brain. She was admitted on the with hypotension, acute on chronic hypoxic and hypercarbic respiratory failure felt to be secondary to COPD with exacerbation. She remains pleasantly confused she does appear to be consentable. Again, she is stating that she wants to go home. Reason For Visit: COPD EXACERBATION Physical Exam Vital Signs: Temp Pulse Resp BP Pulse Ox 98.7 F 103 H 20 116/95 H 96 09/24/17 12:52 09/24/17 14:03 09/24/17 14:03 09/24/17 12:52 09/24/17 14:03 Intake & Output 09/23/17 09/24/17 09/25/17 06:59 06:59 06:59 Intake Total 1224 2079 Output Total 1325 500 Balance -101 1579 Weight 90.4 kg 91.7 kg Additional comments: The patient is an obese white female. She does appear to be dyspneic even at baseline. However, when I entered the room today she had taken off her oxygen and really did not appear to be in any more distress than usual. She has persistent wheezing in all lung curtis. She tells me that she always wheezes. Her cardiac exam is regular without murmurs, gallops or rubs. The abdomen is soft and flat with normal active bowel sounds. The lower extremities do not demonstrate any pitting edema. The skin is clean, warm, dry and intact. Results Laboratory Results: 09/22/17 06:27 09/22/17 06:27 09/19/17 09/20/17 09/20/17 22:15 05:30 10:49 Troponin I 0.029 0.025 0.021 NT-Pro-B Natriuret Pep 445 Impressions: Chest X-Ray 09/19/17 18:05 IMPRESSION: NO ACUTE RADIOGRAPHIC FINDING IN THE CHEST. NO SIGNIFICANT CHANGE FROM PRIOR STUDY. Assessment & Plan - Diagnosis (1) Acute and chronic respiratory failure with hypercapnia Is this a current diagnosis for this admission?: Yes Plan: The patient has acute on chronic respiratory failure with hypoxia and hypercarbia. She was initially treated with BiPAP. She is now on supplemental oxygen. We are making arrangements to discharge the patient. (2) Lung cancer metastatic to brain Is this a current diagnosis for this admission?: Yes Plan: The patient will continue to follow-up with her oncologist after discharge. The patient informed me that her cancer is in remission. (3) Tachycardia Is this a current diagnosis for this admission?: Yes Plan: The patient has mild tachycardia. While this is likely associated with her respiratory failure I have restarted her amlodipine and the tachycardia is improving. (4) Type 2 diabetes mellitus Qualifiers: Diabetes mellitus complication status: with unspecified complications Diabetes mellitus residential insulin use: without residential use Qualified Code( s): E11.8 - Type 2 diabetes mellitus with unspecified complications Is this a current diagnosis for this admission?: Yes Plan: I checked through her home medication list. She was not taking any oral medications for diabetes. We will continue her on sliding scale while she is here. (5) Anemia Qualifiers: Anemia type: unspecified type Qualified Code(s): D64.9 - Anemia, unspecified Is this a current diagnosis for this admission?: Yes Plan: Stable. (6) COPD exacerbation Is this a current diagnosis for this admission?: Yes Plan: Continue antibiotics and bronchodilators. Yesterday, IV methyl prednisolone was discontinued and I started oral prednisone in anticipation of discharge. (7) HTN (hypertension) Qualifiers: Hypertension type: essential hypertension Qualified Code(s): I10 - Essential (primary) hypertension Is this a current diagnosis for this admission?: Yes Plan: Amlodipine and lisinopril will restarted yesterday - Time Time Spent with patient: 15-24 minutes - Plan Summary Plan Summary: The patient was scheduled for discharge yesterday. However, we have been unable to arrange the patient's home oxygen. We are continuing to work on arranging the home oxygen but I do not expect this to occur until tomorrow.
[2017-09-24] MEDS: LEVOFLOXACIN 500 MG TABLET PO SCH (22:08)
[2017-09-24] MEDS: INSULIN LISPRO 100 UNIT/ML 3 ML VIAL SUBCUT PRN (22:48)
[2017-09-25] MEDS: IPRATROPIUM/ALBUTEROL 0.5-2.5 MG/3 ML AMPUL NEB SCH ×3 (02:06→13:59)
[2017-09-25] MEDS: HEPARIN SOD (PORCINE) 5,000 UNIT/ML 1 ML SYRINGE SUBCUT SCH ×2 (05:16→13:58)
[2017-09-25] MEDS: INSULIN LISPRO 100 UNIT/ML 3 ML VIAL SUBCUT PRN (07:58)
[2017-09-25 09:00] VITALS: BP 135/88
--- NOTE | 2017-09-25 10:27 | PDOC DISCHARGE SUMMARY ---
General - Admit/Disc Date/PCP Admission Date/Primary Care Provider: 09/19/17 20:01 MERCEDES [facility], Discharge Date: 09/25/17 - Discharge Diagnosis (1) Acute and chronic respiratory failure with hypercapnia Is this a current diagnosis for this admission?: Yes (2) Lung cancer metastatic to brain Is this a current diagnosis for this admission?: Yes (3) Tachycardia Is this a current diagnosis for this admission?: Yes (4) Type 2 diabetes mellitus Is this a current diagnosis for this admission?: Yes (5) Anemia Is this a current diagnosis for this admission?: Yes (6) COPD exacerbation Is this a current diagnosis for this admission?: Yes (7) HTN (hypertension) Is this a current diagnosis for this admission?: Yes - Additional Information Discharge Diet: Diabetic Discharge Activity: Activity As Tolerated, Balance Activity w/Rest Prescriptions: Levofloxacin [Levaquin 500 mg Tablet] 500 mg PO QHS 6 Days #6 tablet Prednisone [Deltasone 20 mg Tablet] 20 mg PO DAILY 6 Days #6 tablet Home Medications: Albuterol Sulfate [Proair HFA Inhalation Aerosol 8.5 gm MDI] 1 puff IH Q4 PRN Amlodipine Besylate [Norvasc 2.5 mg Tablet] 2.5 mg PO DAILY 09/20/17 Furosemide [Lasix 20 mg Tablet] 20 mg PO BID 09/20/17 Ibuprofen [Motrin 600 mg Tablet] 600 mg PO Q8H 09/20/17 Lisinopril [Prinivil 5 mg Tablet] 5 mg PO DAILY 09/20/17 Salmeterol Xinafoate [Serevent Diskus 50 Mcg/Dose 28 Dose/Diskus] 50 mcg IH Q12 09/20/17 Levofloxacin [Levaquin 500 mg Tablet] 500 mg PO QHS 6 Days #6 tablet 09/23/17 Prednisone [Deltasone 20 mg Tablet] 20 mg PO DAILY 6 Days #6 tablet 09/23/17 History of Present Illness History of Present Illness: TRENTON MCCOY is a 72 year old female with history of 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 She was last admitted here here from 08/31/2017 till 09/10/2017 with the same problem. It was very difficult to obtain an accurate history from her so most of the history was obtained from the ED note. According to the ED note, the patient was seen by home health today and she was found to be hypoxic and her blood pressure was 80/50 when checked by EMS. She received one Duoneb treatment and 500cc NS bolus on route to the hospital per ED physician. According to the patient, she started having chest pain, pressure-like at rest while sitting at her computer. It was nonradiating and lasted about 30 minutes with no alleviating or relieving factors. She also was having worsening shortness of breath, palpitations and diaphoresis but no nausea or vomiting. She said that she felt presyncopal. She also has been having fever ( undocumented) and chills with a productive cough of greenish sputum (unknown duration). She denied any sick contact or recent travels. She is up-to-date with her flu vaccine (not sure about her pneumonia vaccine). She she continued to use her nebulizer 3 times a day and she said that she was compliant with her medications. The patient also complained of abdominal pain across the midsection secondary to the heparin injections she received during her last hospitalization. She denied any diarrhea or constipation. Her last bowel movement was this a.m. with somewhat hard, nonbloody stool. She also complained of urinary frequency but no dysuria or hematuria. She is mostly wheelchair-bound but she uses a walker to transfer. In the ED, her temperature was 98.2, heart rate 121, respiratory rate 20, blood pressure 98/57 and her oxygen saturation was not documented. Her troponin is pending, her WBC was 10.5 and her CXR did not show any acute changes. Her VBG showed pH 7.36 and PCO2 72.3 so she was started on BIPAP. She received another DuoNeb treatments and 125 mg IV Solu-Medrol x1 with improvement in her breathing. Hospital Course Hospital Course: During this hospitalization the patient was treated with intravenous corticosteroids followed by oral prednisone. She was also treated with Levaquin. Sputum culture was not obtained. Initially, patient required BiPAP. SHe appears to have chronic hypercarbic respiratory failure. she will be discharged on home oxygen which is already in place. The patient appears to be extremely deconditioned and weak. I told her that I do not think that she is safe to go home alone. I recommended that she consider discharge to rehabilitation for short-term rehabilitation, but, she refused. Therefore, per her request she will be discharged home with home health. Patient was noted to have some hyperglycemia during this hospitalization. This can be attributed to her corticosteroids. The patient was scheduled to be discharged on 09/23/2017. However, the patient did not have portable oxygen at home. Her son contacted her [employer] but was unable to get the oxygen filled over the weekend. Therefore, the patient was kept in the hospital until Monday, 09/25. Her hospital course over the weekend has been unremarkable. Her plan at discharge is unchanged. Physical Exam Vital Signs: Temp Pulse Resp BP Pulse Ox 98.2 F 103 H 18 135/88 H 100 09/25/17 07:48 09/25/17 07:48 09/25/17 07:48 09/25/17 07:48 09/25/17 07:48 Intake & Output 09/24/17 09/25/17 09/26/17 06:59 06:59 06:59 Intake Total 2079 1608 Output Total 500 Balance 1579 1608 Weight 91.7 kg Additional comments: The patient appears to be her stated age. She is not in any distress this morning. She is alert and oriented 3. Her lungs do show an occasional wheezes primarily on expiration. Her cardiac exam is regular without murmurs, gallops or rubs. The abdomen is obese but soft. Bowel sounds are noted in the lower quadrants. She does not have guarding or rebound noted and there are no hernias or masses present. The lower extremities are unremarkable. She does not have pitting edema present. Skin is warm, dry and intact without lesions or rashes. Results Laboratory Results: 09/22/17 06:27 09/22/17 06:27 09/19/17 09/20/17 09/20/17 22:15 05:30 10:49 Troponin I 0.029 0.025 0.021 NT-Pro-B Natriuret Pep 445 Impressions: Chest X-Ray 09/19/17 18:05 IMPRESSION: NO ACUTE RADIOGRAPHIC FINDING IN THE CHEST. NO SIGNIFICANT CHANGE FROM PRIOR STUDY. Qualifiers - * PATEINT BEING DISCHARGED WITH ANY OF THE FOLLOWING DIAGNOSIS?: No Plan Discharge Plan: Patient will be discharged to home with home health services. She will need to follow-up with her primary care provider in 1 week. She will complete her prednisone taper and Levaquin after discharge. Time Spent: Less than 30 Minutes
[2017-09-25] MEDS: AMLODIPINE BESYLATE 2.5 MG TABLET PO SCH (10:33)
[2017-09-25] MEDS: PREDNISONE 20 MG TABLET PO SCH (10:33)
[2017-09-25] MEDS: LISINOPRIL 5 MG TABLET PO SCH (10:34)
== END 2017-09-25 17:12 | disposition home health service (06) | DRG 190 ==
LOC: ER 17:46 → EH 20:01 → 3S 09-20 02:32
PROVIDERS: ADMIT Internal Medicine Geriatric Medicine; ATTEND Internal Medicine Geriatric Medicine
PROC: 5A09457 Assistance with Respiratory Ventilation, 24-96 Consecutive Hours, Continuous Positive Airway Pressure (ICD-10-PCS; principal; 2017-09-19)
PROC: 3E0F73Z Introduction of Anti-inflammatory into Respiratory Tract, Via Natural or Artificial Opening (ICD-10-PCS; 2017-09-20)
DX: J44.1 Chronic obstructive pulmonary disease with (acute) exacerbation (principal); J96.22 Acute and chronic respiratory failure with hypercapnia; J96.21 Acute and chronic respiratory failure with hypoxia; C34.90 Malignant neoplasm of unspecified part of unspecified bronchus or lung; C79.31 Secondary malignant neoplasm of brain; E11.65 Type 2 diabetes mellitus with hyperglycemia; R00.0 Tachycardia, unspecified; D64.9 Anemia, unspecified; I10 Essential (primary) hypertension; I25.10 Atherosclerotic heart disease of native coronary artery without angina pectoris; I50.9 Heart failure, unspecified; G47.33 Obstructive sleep apnea (adult) (pediatric); K21.9 Gastro-esophageal reflux disease without esophagitis; E03.9 Hypothyroidism, unspecified; M19.90 Unspecified osteoarthritis, unspecified site; F03.90 Unspecified dementia, unspecified severity, without behavioral disturbance, psychotic disturbance, mood disturbance, and anxiety; F32.9 Major depressive disorder, single episode, unspecified; Z99.81 Dependence on supplemental oxygen; Z79.899 Other long term (current) drug therapy; Z90.49 Acquired absence of other specified parts of digestive tract; Z98.42 Cataract extraction status, left eye; Z98.41 Cataract extraction status, right eye; Z87.891 Personal history of nicotine dependence; Z88.1 Allergy status to other antibiotic agents; Z88.3 Allergy status to other anti-infective agents; Z88.8 Allergy status to other drugs, medicaments and biological substances; Z83.6 Family history of other diseases of the respiratory system; Z80.1 Family history of malignant neoplasm of trachea, bronchus and lung
CPT/HCPCS: 36415; 36600; 71045; 80048; 80053; 81001; 82550; 82553; 82803; 82947; 82962; 83690; 83735; 83880; 84484; 85025; 85027; 85610; 93005; 93010; 93970; 94640; 94660; 96374; 99291; G8978-GP; G8979-GP; J1644; J1815; J2920; J2930; J3490; J7512; J7620

== ENCOUNTER 2017-10-05 21:15 | Emergency (ER) | payer MEDICARE, OTHER ==
--- NOTE | 2017-10-05 21:34 | ER Document Report ---
ED Fall - General Chief Complaint: Fall Injury Stated Complaint: FALL/HEAD PAIN Time Seen by Provider: 10/05/17 21:26 Notes: Patient is a 72-year-old female that comes emergency department by EMS for chief complaint of a fall. She states the fall was actually 2-3 days ago but she has been having headaches since the fall she became concerned. She reports some nausea, was given Zofran by EMS. She states that she slipped off of her bed and fell onto her right side and hit her shoulder, elbow, hip, and somehow also cause bruising and swelling to her left great toe. She is on aspirin daily , does not take anticoagulation otherwise. She is wheelchair-bound at home. TRAVEL OUTSIDE OF THE [place] IN LAST 30 DAYS: No - Related data Allergies/Adverse Reactions: azithromycin Allergy (Verified 08/31/17 02:36) amoxicillin [Amoxicillin] Adverse Reaction (Verified 07/26/17 11:39) visual hallucinations erythromycin base [Erythromycin Base] Adverse Reaction (Verified 07/26/17 11:39) visual hallucinations Potassium Clavulanate * [From Augmentin] Adverse Reaction (Verified 07/26/17 11: 39) visual hallucinations Past Medical History - General Information source: Patient - Social History Smoking Status: Never Smoker Frequency of alcohol use: None Drug Abuse: None Lives with: Family Family History: COPD, Malignancy - Lung cancer - Past Medical History Cardiac Medical History: Reports: Hx Congestive Heart Failure, Hx Coronary Artery Disease, Hx Heart Attack, Hx Hypertension Denies: Hx DVT, Hx Hypercholesterolemia, Hx Pulmonary Embolism Pulmonary Medical History: Reports: Hx Asthma, Hx Bronchitis, Hx COPD - 2 L nasal home oxygen, Hx Pneumonia, Hx Respiratory Failure - Chronic respiratory failure Denies: Hx Sleep Apnea, Hx Tuberculosis Neurological Medical History: Denies: Hx Seizures Endocrine Medical History: Reports: Hx Hypothyroidism. Denies: Hx Diabetes Mellitus Type 1, Hx Diabetes Mellitus Type 2, Hx Hyperthyroidism Renal/ Medical History: Denies: Hx End Stage Renal Disease, Hx Kidney Stones, Hx Peritoneal Dialysis Malignancy Medical History: Reports: Hx Brain Cancer - Lung cancer with brain metastases, 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 GI Medical History: Reports: Hx Gastroesophageal Reflux Disease. Denies: Hx Cirrhosis, Hx Hepatitis, Hx Ulcer Musculoskeltal Medical History: Reports Hx Arthritis, Denies Hx Multiple Sclerosis, Reports Hx Musculoskeletal Deformity, Reports Hx Musculoskeletal Trauma Psychiatric Medical History: Reports: Hx Dementia, Hx Depression Denies: Hx Bipolar Disorder, Hx Schizophrenia Infectious Medical History: Reports: Hx C-Diff. Denies: Hx Hepatitis Past Surgical History: Reports: Hx Cholecystectomy, Hx Orthopedic Surgery - Foot surgery, Other - cataract bilateral - Immunizations Hx Diphtheria, Pertussis, Tetanus Vaccination: Yes Hx Pneumococcal Vaccination: 08/30/12 Review of Systems - Review of Systems Constitutional: No symptoms reported EENT: No symptoms reported Cardiovascular: No symptoms reported Respiratory: No symptoms reported Gastrointestinal: No symptoms reported Genitourinary: No symptoms reported Female Genitourinary: No symptoms reported Musculoskeletal: See HPI Skin: No symptoms reported Hematologic/Lymphatic: No symptoms reported Neurological/Psychological: See HPI Physical Exam - Vital signs Vitals: Temp Pulse Resp BP Pulse Ox 98.4 F 107 H 22 H 114/66 94 10/05/17 21:35 10/05/17 21:35 10/05/17 21:35 10/05/17 21:35 10/05/17 21:35 - General General appearance: Appears well In distress: None - HEENT Head: Normocephalic, Atraumatic. No: Abrasions, Ecchymosis, Open wounds, Tenderness Eyes: Normal Extraocular movements intact: Yes Eyelashes: Normal Pupils: PERRL Mouth/Lips: Normal Mucous membranes: Normal Pharynx: Normal Neck: Normal - Respiratory Respiratory status: No respiratory distress Breath sounds: Normal. No: Decreased air movement, Wheezing - Cardiovascular Rhythm: Regular. No: Tachycardia Heart sounds: Normal auscultation, S1 appreciated, S2 appreciated - Abdominal Inspection: Normal Tenderness: Nontender. No: Tender - Back Back: Normal, Nontender. No: Tender - Extremities General upper extremity: Other - Mild generalized tenderness over the right humerus, right elbow, small healed abrasion over the mid arm, normal range of motion, normal distal neurovascular exam General lower extremity: Other - Ecchymosis over the left MTP and slightly over the dorsum of the foot, normal range of motion, no severe tenderness, normal distal neurovascular exam, normal lower extremity exam otherwise - Neurological Neuro grossly intact: Yes Cognition: Normal Orientation: AAOx4 Art Coma Scale Eye Opening: Spontaneous Raquel Coma Scale Verbal: Oriented Art Coma Scale Motor: Obeys Commands Raquel Coma Scale Total: 15 Speech: Normal Cranial nerves: Normal Cerebellar coordination: Normal Motor strength normal: LUE, RUE, LLE, RLE 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 Because of her age CAT scan was performed, no intracranial hemorrhage, fracture, or other concerning abnormality noted. X-rays show no fractures, only finding a soft tissue swelling of the left foot. No evidence of compartment syndrome or infected wounds. Discussed with patient, patient states this gives her peace of mind, I still discussed follow-up and return precautions, she states she will be seen closely and return if she worsens in any way. She also has people at home that we will be checking on her. - Vital Signs Vital signs: Temp Pulse Resp BP Pulse Ox 98.4 F 99 22 H 121/75 95 10/06/17 01:19 10/06/17 01:27 10/06/17 01:27 10/06/17 01:27 10/06/17 01:27 Discharge - Discharge Clinical Impression: Fall Qualifiers: Encounter type: initial encounter Qualified Code(s): W19.XXXA - Unspecified fall, initial encounter Head injury Qualifiers: Encounter type: initial encounter Qualified Code(s): S09.90XA - Unspecified injury of head, initial encounter Condition: Stable Disposition: HOME, SELF-CARE Additional Instructions: The CAT scan of your head, the x-rays of your arm, shoulder, hip, and foot do not show any fractures or concerning abnormalities. The intermittent headaches should resolve with time, take Tylenol for pain if needed, follow-up within the next several days with your primary care provider for additional management. Return if you worsen including returned or severe headache, vomiting, confusion, weakness on one side, vision changes, or any other concerning symptoms.
--- NOTE | 2017-10-05 22:43 | RADIOLOGY REPORT (SQ) ---
EXAM DESCRIPTION: ELBOW RIGHT OVER 2 VIEWS COMPLETED DATE/TIME: 10/05/2017 10:17 pm REASON FOR STUDY: fall, pain COMPARISON: None. NUMBER OF VIEWS: Four views. TECHNIQUE: AP, lateral, and both oblique radiographic images acquired of the right elbow. LIMITATIONS: None. FINDINGS: MINERALIZATION: Normal. BONES: No acute fracture or dislocation. No worrisome bone lesions. JOINT: No effusion. SOFT TISSUES: No soft tissue swelling. No foreign body. OTHER: No other significant finding. IMPRESSION: NEGATIVE STUDY OF THE RIGHT ELBOW. NO RADIOGRAPHIC EVIDENCE OF ACUTE INJURY. TECHNICAL DOCUMENTATION: JOB ID: [id number] [employer]- All Rights Reserved Reading location - IP/workstation name: [email or web address]
--- NOTE | 2017-10-05 22:44 | RADIOLOGY REPORT (SQ) ---
EXAM DESCRIPTION: FOOT LEFT COMPLETE COMPLETED DATE/TIME: 10/05/2017 10:17 pm REASON FOR STUDY: fall, pain, bruising COMPARISON: None. NUMBER OF VIEWS: Three views. TECHNIQUE: AP, lateral and oblique radiographic images acquired of the left foot. LIMITATIONS: None. FINDINGS: MINERALIZATION: Normal. BONES: No acute fracture or dislocation. No worrisome bone lesions. JOINTS: No effusions. SOFT TISSUES: There is soft tissue swelling. OTHER: No other significant finding. IMPRESSION: Soft tissue swelling with no fracture. TECHNICAL DOCUMENTATION: JOB ID: [id number] [employer]- All Rights Reserved Reading location - IP/workstation name: [email or web address]
--- NOTE | 2017-10-05 22:45 | RADIOLOGY REPORT (SQ) ---
EXAM DESCRIPTION: HIP RIGHT AP/LATERAL COMPLETED DATE/TIME: 10/05/2017 10:17 pm REASON FOR STUDY: fall, pain COMPARISON: None. NUMBER OF VIEWS: Two views. TECHNIQUE: AP pelvis and additional frog-leg view of the right hip. LIMITATIONS: None. FINDINGS: MINERALIZATION: Normal. RIGHT HIP: No fracture or dislocation. No worrisome bone lesions. LEFT HIP: No fracture or dislocation. No worrisome bone lesions. PUBIS AND ISCHIUM: No fracture. PELVIS: No fracture. SACRUM: No fracture or dislocation. No worrisome bone lesions. LOWER LUMBAR SPINE: No fracture or dislocation. No worrisome bone lesions. No significant disc disea se. SOFT TISSUES: No findings. OTHER: No other significant finding. IMPRESSION: NEGATIVE STUDY OF THE RIGHT HIP. NO RADIOGRAPHIC EVIDENCE OF ACUTE INJURY. TECHNICAL DOCUMENTATION: JOB ID: [id number] [employer]- All Rights Reserved Reading location - IP/workstation name: [email or web address]
--- NOTE | 2017-10-05 22:54 | RADIOLOGY REPORT (SQ) ---
EXAM DESCRIPTION: CT HEAD WITHOUT COMPLETED DATE/TIME: 10/05/2017 10:19 pm REASON FOR STUDY: fall, headache COMPARISON: 08/15/2015 TECHNIQUE: Axial images acquired through the brain without intravenous contrast. Images reviewed wi th bone, brain and subdural windows. Images stored on PACS. All CT scanners at this facility use dose modulation, iterative reconstruction, and/or weight based d osing when appropriate to reduce radiation dose to as low as reasonably achievable (ALARA). [facility]: Dose Right [facility]: CareDose [facility]: Dose Right [facility]: Teradose 4D [facility]: Smart [employer] RADIATION DOSE: CT Rad equipment meets quality standard of care and radiation dose reduction techniq ues were employed. CTDIvol: 64.6 mGy. DLP: 1034 mGy-cm. mGy. LIMITATIONS: None. FINDINGS: VENTRICLES: Prominent ventricles secondary to involutional atrophy. CEREBRUM: No masses. No hemorrhage. No midline shift. No evidence for acute infarction. Cortical atrophy. Extensive areas of low density in the white matter most likely chronic small vessel ischemi c changes. CEREBELLUM: No masses. No hemorrhage. No alteration of density. No evidence for acute infarction. EXTRAAXIAL SPACES: No fluid collections. No masses. ORBITS AND GLOBE: No intra- or extraconal masses. Normal contour of globe without masses. CALVARIUM: No fracture. PARANASAL SINUSES: There is a small amount of frothy fluid in the right maxillary sinus. SOFT TISSUES: No mass or hematoma. OTHER: No other significant finding. IMPRESSION: MICROVASCULAR ISCHEMIA AND GENERALIZED ATROPHY. NO ACUTE IMAGING FINDINGS IN THE BRAIN Right maxillary sinus disease. EVIDENCE OF ACUTE STROKE: NO. COMMENT: Quality ID # [id number]: Final reports with documentation of one or more dose reduction techniques (e.g., Automated exposure control, adjustment of the mA and/or kV according to patient size, use of iterative reconstruction technique) TECHNICAL DOCUMENTATION: JOB ID: [id number] [employer]- All Rights Reserved Reading location - IP/workstation name: [email or web address]
--- NOTE | 2017-10-05 22:55 | RADIOLOGY REPORT (SQ) ---
EXAM DESCRIPTION: SHOULDER RIGHT 2 OR MORE VIEWS COMPLETED DATE/TIME: 10/05/2017 10:17 pm REASON FOR STUDY: fall, pain COMPARISON: None. NUMBER OF VIEWS: Three views. TECHNIQUE: Internal rotation, external rotation, and Y view images acquired of the right shoulder. LIMITATIONS: None. FINDINGS: MINERALIZATION: Normal. BONES: No acute fracture or dislocation. No worrisome bone lesions. JOINTS: No dislocation. VISUALIZED LUNGS AND RIBS: No pneumothorax. No rib fracture. SOFT TISSUES: No radiopaque foreign body. OTHER: No other significant finding. IMPRESSION: NEGATIVE STUDY OF THE RIGHT SHOULDER. NO RADIOGRAPHIC EVIDENCE OF ACUTE INJURY. TECHNICAL DOCUMENTATION: JOB ID: [id number] [employer]- All Rights Reserved Reading location - IP/workstation name: [email or web address]
[2017-10-05] MEDS ORDERED: HYDROCODONE/ACETAMINOPHEN 5-325 MG TABLET PO ONE (23:05)
[2017-10-05] MEDS ORDERED: ONDANSETRON 4 MG TAB.RAPDIS PO ONE (23:05)
[2017-10-06 01:28] VITALS: BP 121/75
== END 2017-10-06 01:27 | disposition home or self-care (01) ==
LOC: ER 21:15
DX: S09.90XA Unspecified injury of head, initial encounter (principal); S90.112A Contusion of left great toe without damage to nail, initial encounter; R51 Headache; W06.XXXA Fall from bed, initial encounter; R11.0 Nausea; I25.10 Atherosclerotic heart disease of native coronary artery without angina pectoris; I10 Essential (primary) hypertension; I25.2 Old myocardial infarction; J44.9 Chronic obstructive pulmonary disease, unspecified; Z79.82 Long term (current) use of aspirin; Z99.3 Dependence on wheelchair; Z88.1 Allergy status to other antibiotic agents; Z88.0 Allergy status to penicillin; Z85.841 Personal history of malignant neoplasm of brain; Z85.118 Personal history of other malignant neoplasm of bronchus and lung
CPT/HCPCS: 99284; 73080; 73630; 73502; 73030; 70450; A9270 ×2; S0119

== ENCOUNTER 2017-10-09 09:20 | Inpatient (IN) | payer MEDICARE, OTHER ==
[2017-10-09] MEDS ORDERED: IPRATROPIUM/ALBUTEROL 0.5-2.5 MG/3 ML AMPUL NEB ONE ×2 (09:50→13:16)
[2017-10-09] MEDS ORDERED: METHYLPREDNISOLONE INJ 125 MG/2 ML SDV IV ONE ×2 (09:50→13:16)
--- NOTE | 2017-10-09 09:51 | ER Document Report ---
ED General - General Stated Complaint: RESPIRATORY DISTRESS Time Seen by Provider: 10/09/17 09:45 TRAVEL OUTSIDE OF THE [place] 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 Patient states that she does have recurrent exacerbations of her COPD. Patient has been using her oxygen regularly at home. She has not had any other recent illness. Patient states that she is eating and drinking without any difficulties. She is urinating normally and having normal bowel movements. Patient has had increased dyspnea on exertion as well without any chest pain. Denies any headache, fever, neck pain, URI, sore throat, chest pain, palpitations, syncope, abdominal pain, nausea/vomiting/diarrhea, urinary retention, dysuria, hematuria, back pain, loss of control of bowel or bladder, numbness/tingling, muscle paralysis/weakness, or rash. - Related Data Allergies/Adverse Reactions: azithromycin Allergy (Verified 08/31/17 02:36) amoxicillin [Amoxicillin] Adverse Reaction (Verified 07/26/17 11:39) visual hallucinations erythromycin base [Erythromycin Base] Adverse Reaction (Verified 07/26/17 11:39) visual hallucinations Potassium Clavulanate * [From Augmentin] Adverse Reaction (Verified 07/26/17 11: 39) visual hallucinations Past Medical History - Social History Smoking Status: Unknown if Ever Smoked Family History: COPD, Malignancy - Lung cancer - Past Medical History Cardiac Medical History: Reports: Hx Congestive Heart Failure, Hx Coronary Artery Disease, Hx Heart Attack, Hx Hypertension Denies: Hx DVT, Hx Hypercholesterolemia, Hx Pulmonary Embolism Pulmonary Medical History: Reports: Hx Asthma, Hx Bronchitis, Hx COPD - 2 L nasal home oxygen, Hx Pneumonia, Hx Respiratory Failure - Chronic respiratory failure Denies: Hx Sleep Apnea, Hx Tuberculosis Neurological Medical History: Denies: Hx Seizures Endocrine Medical History: Reports: Hx Hypothyroidism. Denies: Hx Diabetes Mellitus Type 1, Hx Diabetes Mellitus Type 2, Hx Hyperthyroidism Renal/ Medical History: Denies: Hx End Stage Renal Disease, Hx Kidney Stones, Hx Peritoneal Dialysis Malignancy Medical History: Reports: Hx Brain Cancer - Lung cancer with brain metastases, 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 GI Medical History: Reports: Hx Gastroesophageal Reflux Disease. Denies: Hx Cirrhosis, Hx Hepatitis, Hx Ulcer Musculoskeltal Medical History: Reports Hx Arthritis, Denies Hx Multiple Sclerosis, Reports Hx Musculoskeletal Deformity, Reports Hx Musculoskeletal Trauma Psychiatric Medical History: Reports: Hx Dementia, Hx Depression Denies: Hx Bipolar Disorder, Hx Schizophrenia Infectious Medical History: Reports: Hx C-Diff. Denies: Hx Hepatitis Past Surgical History: Reports: Hx Cholecystectomy, Hx Orthopedic Surgery - Foot surgery, Other - cataract bilateral - Immunizations Hx Diphtheria, Pertussis, Tetanus Vaccination: Yes Hx Pneumococcal Vaccination: 08/30/12 Review of Systems - Review of Systems -: Yes All other systems reviewed and negative Physical Exam - Vital signs Vitals: Resp BP Pulse Ox 19 131/74 H 100 10/09/17 09:35 10/09/17 09:35 10/09/17 09:35 - Notes Notes: PHYSICAL EXAMINATION: accompanied by female nurse GENERAL: Well-appearing, well-nourished and in no acute distress. A&Ox4. Answers questions appropriately. HEAD: Atraumatic, normocephalic. EYES: Pupils equal round and reactive to light, extraocular movements intact, sclera anicteric, conjunctiva are normal. ENT: Nares patent and without discharge. oropharynx clear without exudates. No tonsilar hypertrophy or erythema. Moist mucous membranes. NECK: Normal range of motion, supple without lymphadenopathy LUNGS: Dec breath sounds b/l. wheezing b/l. HEART: Regular rate and rhythm without murmurs, rubs, gallops. ABDOMEN: Soft, nontender, nondistended abdomen. No guarding, no rebound. No masses appreciated. Normal bowel sounds present. No CVA tenderness bilaterally. Obese Rectal: no impaction. stool brown. no obvious blood noted. Non-tender. Musculoskeletal: FROM to passive/active. Strength 5+/5. Sabine neg. No calf erythema/tenderness b/l. Extremities: 1-2+ pitting edema b/l. Peripheral pulses 2+. Capillary refill less than 3 seconds. NEUROLOGICAL: Cranial nerves grossly intact. Normal speech. Normal sensory, motor exams PSYCH: Normal mood, normal affect. SKIN: Warm, Dry, normal turgor, no rashes or lesions noted. Course - Re-evaluation Re-evalutation: 10/09/17 15:20 Patient is an afebrile, well-hydrated, 72-year-old female who presents to the ED with acute COPD exacerbation and anemia. Vitals are acceptable. PE is otherwise unremarkable. Patient continues to have wheezing throughout her lungs despite breathing treatments, magnesium, and Solu-Medrol. Cardiac enzymes /EKG unremarkable for any acute pathology. Chest x-ray was unremarkable. Reviewed case with Dr. Adler who accepted patient for admit. Patient is in agreement with plan. - Vital Signs Vital signs: Temp Pulse Resp BP Pulse Ox 18 121/76 99 10/09/17 15:01 10/09/17 15:01 10/09/17 15:01 - Laboratory Result Diagrams: 10/09/17 11:35 10/09/17 11:35 Laboratory results interpreted by me: 10/09/17 10/09/17 10/09/17 10:30 11:35 11:35 RBC 2.33 L Hgb 7.6 L Hct 22.7 L RDW 17.0 H Seg Neutrophils % 83.9 H Lymphocytes % 8.7 L VBG pCO2 VBG HCO3 Potassium 3.3 L Carbon Dioxide 37 H Glucose 128 H Creatine Kinase < 20 L Total Protein 5.1 L Albumin 3.0 L Ur Leukocyte Esterase TRACE H 10/09/17 11:35 RBC Hgb Hct RDW Seg Neutrophils % Lymphocytes % VBG pCO2 66.6 H* VBG HCO3 38.8 H Potassium Carbon Dioxide Glucose Creatine Kinase Total Protein Albumin Ur Leukocyte Esterase Discharge - Discharge Clinical Impression: COPD exacerbation Anemia Qualifiers: Anemia type: unspecified type Qualified Code(s): D64.9 - Anemia, unspecified Condition: Stable Disposition: ADMITTED INPATIENT Admitting Provider: Hospitalist - Dr. Adler Unit Admitted: Telemetry
--- NOTE | 2017-10-09 09:57 | RADIOLOGY REPORT (SQ) ---
EXAM DESCRIPTION: CHEST SINGLE VIEW COMPLETED DATE/TIME: 10/09/2017 9:42 am REASON FOR STUDY: sob COMPARISON: 09/19/2017 and 08/12/2017 EXAM PARAMETERS: NUMBER OF VIEWS: One view. TECHNIQUE: Single frontal radiographic view of the chest acquired. RADIATION DOSE: NA LIMITATIONS: None. FINDINGS: LUNGS AND PLEURA: No opacities, masses or pneumothorax. No pleural effusion. MEDIASTINUM AND HILAR STRUCTURES: Stable chronic changes at the right hilum. HEART AND VASCULAR STRUCTURES: Heart normal in size. Normal vasculature. BONES: No acute findings. HARDWARE: None in the chest. OTHER: No other significant finding. IMPRESSION: 1 No significant interval changes since the prior examination dated 09/19/2017. No acute pulmonary findings. TECHNICAL DOCUMENTATION: JOB ID: [id number] [employer]- All Rights Reserved Reading location - IP/workstation name: [email or web address]
[2017-10-09 10:53] LABS: APPEARANCE,URINE CLEAR; BILIRUBIN,URINE NEGATIVE (NEGATIVE); COLOR,URINE YELLOW; GLUCOSE, URINE NEGATIVE (NEGATIVE); KETONES,URINE NEGATIVE (NEGATIVE); LEUKOCYTE ESTERASE,URINE TRACE (NEGATIVE); NITRITE,URINE NEGATIVE (NEGATIVE); PROTEIN,URINE NEGATIVE (NEGATIVE); URINE SPECIFIC GRAVITY 1.011; UROBILINOGEN,URINE NEGATIVE mg/dL (<2.0)
[2017-10-09 12:05] LABS: VENOUS BLOOD BASE EXCESS 11.7 mmol/L; VENOUS BLOOD HCO3 38.8 mmol/L (20-32); VENOUS BLOOD PH 7.38 (7.30-7.42)
[2017-10-09 12:07] LABS: ABSOLUTE EOSINOPHILS # (AUTO) 0.1 10^3/uL (0.0-0.6); ABSOLUTE LYMPHOCYTES (AUTO) 0.6 10^3/uL (0.5-4.7); ABSOLUTE MONOCYTES (AUTO) 0.4 10^3/uL (0.1-1.4); ABSOLUTE NEUT (AUTO) 5.4 10^3/uL (1.7-8.2); BASOPHILS % (AUTO) 0.2 % (0-2); EOSINOPHILS % (AUTO) 0.8 % (0-6); HEMATOCRIT 22.7 % (36.0-47.0); LYMPHOCYTES % (AUTO) 8.7 % (13-45); MEAN CORPUSCULAR HEMOGLOBIN 32.6 pg (27.0-33.4); MEAN CORPUSCULAR HGB CONC 33.6 g/dL (32.0-36.0); MEAN CORPUSCULAR VOLUME 97 fl (80-97); MONOCYTES % (AUTO) 6.4 % (3-13); PLATELET COUNT 189 10^3/uL (150-450); RED BLOOD COUNT 2.33 10^6/uL (3.72-5.28); SEGMENTED NEUTROPHILS % (AUTO) 83.9 % (42-78); TOTAL CELLS COUNTED % (AUTO) 100 %; WHITE BLOOD COUNT 6.4 10^3/uL (4.0-10.5)
[2017-10-09 12:08] LABS: VENOUS BLOOD PCO2 66.6 mmHg (35-63)
[2017-10-09 12:12] LABS: HEMOGLOBIN 7.6 g/dL (12.0-15.5)
[2017-10-09 12:21] LABS: ALANINE AMINOTRANSFERASE 39 U/L (9-52); ALKALINE PHOSPHATASE 72 U/L (38-126); ANION GAP 7 (5-19); ASPARTATE AMINO TRANSFERASE 17 U/L (14-36); BILIRUBIN,DIRECT 0.2 mg/dL (0.0-0.4); BILIRUBIN,TOTAL 0.2 mg/dL (0.2-1.3); BLOOD UREA NITROGEN 15 mg/dL (7-20); CALCIUM 8.7 mg/dL (8.4-10.2); CARBON DIOXIDE 37 mmol/L (22-30); CHLORIDE 100 mmol/L (98-107); GLUCOSE 128 mg/dL (75-110); POTASSIUM 3.3 mmol/L (3.6-5.0); SODIUM 143.6 mmol/L (137-145); TOTAL PROTEIN 5.1 g/dL (6.3-8.2)
[2017-10-09 12:22] LABS: CREATINE KINASE < 20 U/L (30-135)
[2017-10-09 12:33] LABS: CREATINE KINASE MB 0.62 ng/mL (<4.55); TROPONIN I 0.022 ng/mL
[2017-10-09] MEDS: MAGNESIUM SULFATE/D5W 1 GM/100 ML RTUPB IV SCH ×2 (13:15→14:00)
--- NOTE | 2017-10-09 13:26 | EKG REPORT ---
SEVERITY:- ABNORMAL ECG - SINUS TACHYCARDIA MULTIPLE PREMATURE COMPLEXES, SUPRAVEN RIGHT BUNDLE BRANCH BLOCK : Confirmed by: Issa Martinez MD 09-Oct-2017 13:25:13
[2017-10-09] MEDS ORDERED: ALBUTEROL SULFATE 0.083% NEB 2.5 MG/3 ML AMPUL NEB ONE (15:16)
[2017-10-09] MEDS ORDERED: ACETAMINOPHEN 325 MG TABLET PO PRN (15:36)
[2017-10-09] MEDS ORDERED: ONDANSETRON HCL INJ/PF 4 MG/2 ML SDV IV PRN (15:36)
[2017-10-09] MEDS ORDERED: POTASSIUM CHLORIDE 10 MEQ TABLET.SA PO ONE (15:47)
[2017-10-09] MEDS ORDERED: FUROSEMIDE INJ/PF 40 MG/4 ML SDV IV ONE (15:48)
[2017-10-09] MEDS ORDERED: DEXTROSE 50%-WATER 25 GM/50 ML DISP.SYRIN IV PRN ×2 (16:05)
[2017-10-09] MEDS ORDERED: INSULIN LISPRO 100 UNIT/ML 3 ML VIAL SUBCUT PRN (16:05)
[2017-10-09] MEDS ORDERED: DEXTROSE 40% GEL 15 GM TUBE PO PRN ×2 (16:05)
[2017-10-09] MEDS ORDERED: GLUCAGON,HUMAN RECOMB 1 MG INJ IM PRN (16:05)
--- NOTE | 2017-10-09 16:20 | PDOC H&P ---
History of Present Illness Admission Date/PCP: 10/09/2017 Patient complains of: Shortness of breath History of Present Illness: TRENTON MCCOY is a 72 year old female to the hospital with complaint of shortness of breath. Patient states she has been short of breath for the last 2 days. Patient states that she thinks it has to do with the pollen. Patient states that she had been doing well until she went outside during the warm weather. Patient states that her legs have been somewhat swollen but she is unsure if they are bigger than what they normally are. Patient denies any dark stools does admit to coughing up blood small amount sporadically. Patient reports that she has not had fever chills or nausea vomiting. Patient states that she has been exposed to sick contacts. Patient denies chest pain and hematemesis Past Medical History Cardiac Medical History: Reports: Congestive Heart Failure, Coronary Artery Disease, Myocardial Infarction, Hypertension Denies: DVT, Hyperlipidema, Pulmonary Embolism Pulmonary Medical History: Reports: Asthma, Bronchitis, Chronic Obstructive Pulmonary Disease (COPD) - 2 L nasal home oxygen, Pneumonia, Respiratory Failure - Chronic respiratory failure Denies: Sleep Apnea, Tuberculosis Neurological Medical History: Denies: Seizures Endocrine Medical History: Reports: Hypothyroidism Denies: Diabetes Mellitus Type 1, Diabetes Mellitus Type 2, Hyperthyroidism Renal/ Medical History: Denies: End Stage Renal Disease Malignancy Medical History: Reports: Brain Cancer - Lung cancer with brain metastases, 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 GI Medical History: Reports: Gastroesophageal Reflux Disease Denies: Cirrhosis, Hepatitis Musculoskeltal Medical History: Reports: Arthritis Psychiatric Medical History: Reports: Dementia, Depression Denies: Bipolar Disorder Hematology: Reports: Anemia, Bleeding Tendencies Infectious Medical History: Reports: Clostridium Difficile Past Surgical History Past Surgical History: Reports: Cholecystectomy, Orthopedic Surgery - Foot surgery, Other - cataract bilateral Social History Smoking Status: Unknown if Ever Smoked Frequency of Alcohol Use: None Hx Recreational Drug Use: No Drugs: None Hx Prescription Drug Abuse: No - Advance Directive Resuscitation Status: Full Code Family History Family History: COPD, Malignancy - Lung cancer Parental Family History Reviewed: Yes Children Family History Reviewed: Yes Sibling(s) Family History Reviewed.: Yes Medication/Allergy Home Medications: Albuterol Sulfate [Proair HFA Inhalation Aerosol 8.5 gm MDI] 1 puff IH Q4 PRN Amlodipine Besylate [Norvasc 2.5 mg Tablet] 2.5 mg PO DAILY 09/20/17 Furosemide [Lasix 20 mg Tablet] 20 mg PO BID 09/20/17 Ibuprofen [Motrin 600 mg Tablet] 600 mg PO Q8H 09/20/17 Lisinopril [Prinivil 5 mg Tablet] 5 mg PO DAILY 09/20/17 Salmeterol Xinafoate [Serevent Diskus 50 Mcg/Dose 28 Dose/Diskus] 50 mcg IH Q12 09/20/17 Levofloxacin [Levaquin 500 mg Tablet] 500 mg PO QHS 6 Days #6 tablet 09/23/17 Prednisone [Deltasone 20 mg Tablet] 20 mg PO DAILY 6 Days #6 tablet 09/23/17 Allergies/Adverse Reactions: azithromycin Allergy (Verified 08/31/17 02:36) amoxicillin [Amoxicillin] Adverse Reaction (Verified 07/26/17 11:39) visual hallucinations erythromycin base [Erythromycin Base] Adverse Reaction (Verified 07/26/17 11:39) visual hallucinations Potassium Clavulanate * [From Augmentin] Adverse Reaction (Verified 07/26/17 11: 39) visual hallucinations Review of Systems Constitutional: ABSENT: chills, fever(s), headache(s), weight gain, weight loss Eyes: ABSENT: visual disturbances Ears: ABSENT: hearing changes Cardiovascular: PRESENT: edema. ABSENT: chest pain, dyspnea on exertion, orthropnea, palpitations Respiratory: PRESENT: cough, dyspnea, hemoptysis Gastrointestinal: ABSENT: abdominal pain, constipation, diarrhea, hematemesis, hematochezia, nausea, vomiting Genitourinary: ABSENT: dysuria, hematuria Musculoskeletal: ABSENT: joint swelling Integumentary: ABSENT: rash, wounds Neurological: ABSENT: abnormal gait, abnormal speech, confusion, dizziness, focal weakness, syncope Psychiatric: ABSENT: anxiety, depression, homidical ideation, suicidal ideation Endocrine: ABSENT: cold intolerance, heat intolerance, polydipsia, polyuria Hematologic/Lymphatic: ABSENT: easy bleeding, easy bruising Physical Exam Vital Signs: Temp Pulse Resp BP Pulse Ox 18 121/76 99 10/09/17 15:01 10/09/17 15:01 10/09/17 15:01 General appearance: PRESENT: mild distress, morbidly obese, well-developed, well -nourished Head exam: PRESENT: atraumatic, normocephalic Eye exam: PRESENT: conjunctiva pink, EOMI. ABSENT: scleral icterus Ear exam: PRESENT: normal external ear exam Mouth exam: PRESENT: moist, tongue midline Neck exam: ABSENT: carotid bruit, JVD, lymphadenopathy, thyromegaly Respiratory exam: PRESENT: accessory muscle use, prolonged expiratory phas, wheezes Cardiovascular exam: PRESENT: tachycardia Pulses: PRESENT: normal dorsalis pedis pul Vascular exam: PRESENT: normal capillary refill GI/Abdominal exam: PRESENT: normal bowel sounds, soft. ABSENT: distended, guarding, mass, organolmegaly, rebound, tenderness Rectal exam: PRESENT: deferred Gentrourinary exam: PRESENT: ecchymosis - Bilateral great toes, right shoulder, and bilateral forearm. Extremities exam: PRESENT: pedal edema, +2 edema Musculoskeletal exam: PRESENT: full ROM Neurological exam: PRESENT: alert, awake, oriented to person, oriented to place , oriented to time, oriented to situation, CN II-XII grossly intact. ABSENT: motor sensory deficit Psychiatric exam: PRESENT: appropriate affect, normal mood. ABSENT: homicidal ideation, suicidal ideation Skin exam: PRESENT: dry, intact, skin tears - right forearm., warm Results Laboratory Results: 10/09/17 11:35 10/09/17 11:35 10/09/17 10/09/17 10/09/17 10:30 11:35 11:35 WBC 6.4 RBC 2.33 L Hgb 7.6 L Hct 22.7 L MCV 97 MCH 32.6 MCHC 33.6 RDW 17.0 H Plt Count 189 Seg Neutrophils % 83.9 H Lymphocytes % 8.7 L Monocytes % 6.4 Eosinophils % 0.8 Basophils % 0.2 Absolute Neutrophils 5.4 Absolute Lymphocytes 0.6 Absolute Monocytes 0.4 Absolute Eosinophils 0.1 Absolute Basophils 0.0 VBG pH VBG pCO2 VBG HCO3 VBG Base Excess Sodium 143.6 Potassium 3.3 L Chloride 100 Carbon Dioxide 37 H Anion Gap 7 BUN 15 Creatinine 0.84 Est GFR ( Amer) > 60 Est GFR (Non-Af Amer) > 60 Glucose 128 H Calcium 8.7 Total Bilirubin 0.2 AST 17 ALT 39 Alkaline Phosphatase 72 Total Protein 5.1 L Albumin 3.0 L Urine Color YELLOW Urine Appearance CLEAR Urine pH 7.0 Ur Specific [place] 1.011 Urine Protein NEGATIVE Urine Glucose (UA) NEGATIVE Urine Ketones NEGATIVE Urine Blood NEGATIVE Urine Nitrite NEGATIVE Ur Leukocyte Esterase TRACE H Urine WBC (Auto) 13 Urine RBC (Auto) 1 Stool Occult Blood 10/09/17 10/09/17 11:35 12:45 WBC RBC Hgb Hct MCV MCH MCHC RDW Plt Count Seg Neutrophils % Lymphocytes % Monocytes % Eosinophils % Basophils % Absolute Neutrophils Absolute Lymphocytes Absolute Monocytes Absolute Eosinophils Absolute Basophils VBG pH 7.38 VBG pCO2 66.6 H* VBG HCO3 38.8 H VBG Base Excess 11.7 Sodium Potassium Chloride Carbon Dioxide Anion Gap BUN Creatinine Est GFR ( Amer) Est GFR (Non-Af Amer) Glucose Calcium Total Bilirubin AST ALT Alkaline Phosphatase Total Protein Albumin Urine Color Urine Appearance Urine pH Ur Specific [place] Urine Protein Urine Glucose (UA) Urine Ketones Urine Blood Urine Nitrite Ur Leukocyte Esterase Urine WBC (Auto) Urine RBC (Auto) Stool Occult Blood NEGATIVE 10/09/17 10/09/17 11:35 11:35 Creatine Kinase < 20 L CK-MB (CK-2) 0.62 Troponin I 0.022 Impressions: Chest X-Ray 10/09/17 09:22 IMPRESSION: 1 No significant interval changes since the prior examination dated 09/19/2017. No acute pulmonary findings. Assessment & Plan - Diagnosis (1) Acute and chronic respiratory failure with hypercapnia Is this a current diagnosis for this admission?: Yes Plan: Secondary COPD exacerbation: Placed on steroids, breathing treatments, and antibiotics. Will write for BiPAP settings if patient has respiratory issues. (2) COPD exacerbation Is this a current diagnosis for this admission?: Yes Plan: Steroids,Duoneb, and antibiotics. (3) Anemia Qualifiers: Anemia type: unspecified type Qualified Code(s): D64.9 - Anemia, unspecified Is this a current diagnosis for this admission?: Yes Plan: We will type and cross patient for 2 units of packed RBCs to have on hold. Anemia workup has been ordered. Patient's first Hemoccult stool has been negative will repeat. Patient's RDW with seem to suggest iron deficiency anemia however could be a mixed picture when evaluating the MCV. (4) CHF with left ventricular diastolic dysfunction, NYHA class 1 Is this a current diagnosis for this admission?: Yes Plan: Acute on chronic CHF exacerbation diastolic: will place scheduled Lasix. (5) Hypokalemia Is this a current diagnosis for this admission?: Yes Plan: Pt given Potassium replacement. Will check BMP in am. Will check magnesium in am. (6) Metabolic alkalosis Is this a current diagnosis for this admission?: Yes Plan: Secondary to Resp compensated: Will continue to monitor. (7) Obesity Qualifiers: Obesity type: with alveolar hypoventilation Body mass index: BMI 31.0-31.9 Is this a current diagnosis for this admission?: Yes Plan: Encourage dietary changes. (8) Tachycardia Is this a current diagnosis for this admission?: Yes Plan: Secondary to Acute COPD exacerbation: Will continue current treatment. (9) Type 2 diabetes mellitus Qualifiers: Diabetes mellitus java core developer insulin use: without java core developer use Diabetes mellitus complication status: with unspecified complications Qualified Code(s) : E11.8 - Type 2 diabetes mellitus with unspecified complications Is this a current diagnosis for this admission?: Yes Plan: Will place on SSI (10) DVT prophylaxis Is this a current diagnosis for this admission?: Yes Plan: SCDs - Time Time Spent: 30 to 50 Minutes
[2017-10-09 16:21] LABS: ABSOLUTE RETICS # 0.045 10^6/uL (0.028-0.122); RETICULOCYTE COUNT (AUTO) 1.91 % (0.66-2.85)
[2017-10-09] MEDS: IPRATROPIUM/ALBUTEROL 0.5-2.5 MG/3 ML AMPUL NEB SCH ×2 (16:22→19:40)
[2017-10-09 17:39] LABS: FOLATE > 20.00 ng/mL (>2.76); IRON(TIBC) < 10.1 ug/dL (37-170)
[2017-10-09] MEDS: METHYLPREDNISOLONE INJ 40 MG/1 ML SDV IV SCH (22:03)
[2017-10-10 05:28] LABS: ALANINE AMINOTRANSFERASE 36 U/L (9-52); ALBUMIN 3.1 g/dL (3.5-5.0); ALKALINE PHOSPHATASE 63 U/L (38-126); ANION GAP 10 (5-19); ASPARTATE AMINO TRANSFERASE 16 U/L (14-36); BILIRUBIN,DIRECT 0.1 mg/dL (0.0-0.4); BILIRUBIN,TOTAL 0.1 mg/dL (0.2-1.3); BLOOD UREA NITROGEN 19 mg/dL (7-20); CALCIUM 8.6 mg/dL (8.4-10.2); CARBON DIOXIDE 35 mmol/L (22-30); CHLORIDE 97 mmol/L (98-107); GLUCOSE 260 mg/dL (75-110); POTASSIUM 4.1 mmol/L (3.6-5.0); SODIUM 141.6 mmol/L (137-145)
[2017-10-10 05:33] LABS: HEMATOCRIT 23.5 % (36.0-47.0); HEMOGLOBIN 8.1 g/dL (12.0-15.5); MEAN CORPUSCULAR HEMOGLOBIN 32.8 pg (27.0-33.4); MEAN CORPUSCULAR HGB CONC 34.4 g/dL (32.0-36.0); MEAN CORPUSCULAR VOLUME 95 fl (80-97); RED BLOOD COUNT 2.46 10^6/uL (3.72-5.28); RED CELL DISTRIBUTION WIDTH 16.9 % (11.5-14.0); WHITE BLOOD COUNT 7.8 10^3/uL (4.0-10.5)
[2017-10-10 05:59] LABS: ABSOLUTE LYMPHOCYTES# (MANUAL) 0.2 10^3/uL (0.5-4.7); ABSOLUTE MONOCYTES # (MANUAL) 0.1 10^3/uL (0.1-1.4); ABSOLUTE NEUTROPHILS# (MANUAL) 7.5 10^3/uL (1.7-8.2); ANISOCYTOSIS 1+; BAND NEUTROPHILS % (MANUAL) 2 % (3-5); BASOPHILS % (MANUAL) 0 % (0-2); EOSINOPHILS % (MANUAL) 0 % (0-6); LYMPHOCYTES % (MANUAL) 3 % (13-45); MONOCYTES % (MANUAL) 1 % (3-13); NUCLEATED RED BLOOD CELLS 1 /100 WBC (0); SEGMENTED NEUTROPHILS % (MAN) 94 % (42-78); TOTAL CELLS COUNTED 100
[2017-10-10 06:00] LABS: POLYCHROMASIA 1+
[2017-10-10 06:01] LABS: OVALOCYTES SLIGHT
[2017-10-10 06:03] LABS: PLATELET COMMENT ADEQUATE; STOMATOCYTES SLIGHT
[2017-10-10 06:04] LABS: PLATELET COUNT 181 10^3/uL (150-450)
[2017-10-10] MEDS: LANSOPRAZOLE 30 MG TAB.RAP.DR PO SCH (06:59)
[2017-10-10] MEDS: METHYLPREDNISOLONE INJ 40 MG/1 ML SDV IV SCH ×3 (06:59→22:15)
[2017-10-10] MEDS: IPRATROPIUM/ALBUTEROL 0.5-2.5 MG/3 ML AMPUL NEB SCH ×2 (07:57→11:19)
[2017-10-10] MEDS: FUROSEMIDE INJ/PF 40 MG/4 ML SDV IV SCH (11:20)
[2017-10-10] MEDS ORDERED: LEVALBUTEROL HCL NEB 1.25 MG/3 ML AMPUL NEB PRN (11:56)
--- NOTE | 2017-10-10 15:59 | PDOC PROGRESS REPORT ---
Subjective Progress Note for:: 10/10/17 Subjective:: Patient states that she is short of breath however she states that she is feeling better. She reports that she has been urinating a lot. Nursing states that patient is incontinent. Have requested for Sidhu to be placed for accurate ins and outs Reason For Visit: ACUTE HYPOXIC RESPIRATORY FAILURE,ACUTE COPD Physical Exam Vital Signs: Temp Pulse Resp BP Pulse Ox 99.3 F 115 H 20 131/82 H 100 10/10/17 11:46 10/10/17 14:00 10/10/17 11:46 10/10/17 11:46 10/10/17 11:46 Intake & Output 10/09/17 10/10/17 10/11/17 06:59 06:59 06:59 Intake Total 455 Output Total 100 Balance 355 Weight 87.1 kg General appearance: PRESENT: no acute distress, well-nourished Head exam: PRESENT: atraumatic, normocephalic Eye exam: PRESENT: conjunctiva pink, EOMI. ABSENT: scleral icterus Ear exam: PRESENT: normal external ear exam Mouth exam: PRESENT: moist, tongue midline Neck exam: ABSENT: carotid bruit, JVD, lymphadenopathy, thyromegaly Respiratory exam: PRESENT: accessory muscle use, decreased breath sounds, prolonged expiratory phas, wheezes Cardiovascular exam: PRESENT: RRR. ABSENT: diastolic murmur, rubs, systolic murmur Pulses: PRESENT: normal dorsalis pedis pul Vascular exam: PRESENT: normal capillary refill GI/Abdominal exam: PRESENT: normal bowel sounds, soft. ABSENT: distended, guarding, mass, organolmegaly, rebound, tenderness Rectal exam: PRESENT: deferred Extremities exam: PRESENT: full ROM, pedal edema, other - +1 pitting edema bilateral lower extremities much improved. ABSENT: calf tenderness, clubbing Neurological exam: PRESENT: alert, awake, oriented to person, oriented to place , oriented to time, oriented to situation, CN II-XII grossly intact. ABSENT: motor sensory deficit Psychiatric exam: PRESENT: appropriate affect, normal mood. ABSENT: homicidal ideation, suicidal ideation Skin exam: PRESENT: dry, intact, warm. ABSENT: cyanosis, rash Results Laboratory Results: 10/10/17 04:35 10/10/17 04:35 10/10/17 10/10/17 04:35 04:35 WBC 7.8 RBC 2.46 L Hgb 8.1 L Hct 23.5 L MCV 95 MCH 32.8 MCHC 34.4 RDW 16.9 H Plt Count 181 Seg Neutrophils % Not Reportable Lymphocytes % Not Reportable Monocytes % Not Reportable Eosinophils % Not Reportable Basophils % Not Reportable Absolute Neutrophils Not Reportable Absolute Lymphocytes Not Reportable Absolute Monocytes Not Reportable Absolute Eosinophils Not Reportable Absolute Basophils Not Reportable Sodium 141.6 Potassium 4.1 Chloride 97 L Carbon Dioxide 35 H Anion Gap 10 BUN 19 Creatinine 0.77 Est GFR ( Amer) > 60 Est GFR (Non-Af Amer) > 60 Glucose 260 H Calcium 8.6 Total Bilirubin 0.1 L AST 16 ALT 36 Alkaline Phosphatase 63 Total Protein 5.0 L Albumin 3.1 L 10/09/17 10/09/17 10/10/17 16:13 22:00 04:35 Troponin I 0.023 < 0.012 < 0.012 Impressions: Chest X-Ray 10/09/17 09:22 IMPRESSION: 1 No significant interval changes since the prior examination dated 09/19/2017. No acute pulmonary findings. Assessment & Plan - Diagnosis (1) Acute and chronic respiratory failure with hypercapnia Is this a current diagnosis for this admission?: Yes Plan: Secondary COPD exacerbation: Placed on steroids, breathing treatments, and antibiotics. BiPAP PRN. (2) COPD exacerbation Is this a current diagnosis for this admission?: Yes Plan: Steroids,Duoneb, and antibiotics. (3) Anemia Qualifiers: Anemia type: unspecified type Qualified Code(s): D64.9 - Anemia, unspecified Is this a current diagnosis for this admission?: Yes Plan: Iron Deficiency Anemia: Patient's Hemoccult stool has been negative will repeat. Will give IV Iron. (4) CHF with left ventricular diastolic dysfunction, NYHA class 1 Is this a current diagnosis for this admission?: Yes Plan: Acute on chronic CHF exacerbation diastolic: Will continue Lasix. (5) Hypokalemia Is this a current diagnosis for this admission?: Yes Plan: Resolved. (6) Metabolic alkalosis Is this a current diagnosis for this admission?: Yes Plan: Secondary to Resp compensated: Will continue to monitor. (7) Obesity Qualifiers: Obesity type: with alveolar hypoventilation Body mass index: BMI 31.0-31.9 Is this a current diagnosis for this admission?: Yes Plan: Encourage dietary changes. (8) Tachycardia Is this a current diagnosis for this admission?: Yes Plan: Secondary to Acute COPD exacerbation: Will continue current treatment. 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
[2017-10-10] MEDS: LEVALBUTEROL HCL NEB 1.25 MG/3 ML AMPUL NEB SCH ×3 (16:13→23:32)
[2017-10-10] MEDS: IPRATROPIUM BROMIDE 0.02% NEB 0.5 MG/2.5 ML AMPUL NEB SCH ×3 (16:13→23:32)
--- NOTE | 2017-10-10 16:21 | PDOC CONSULTATION ---
Consultation Consult Date: 10/10/17 Attending physician:: SWATI LUNDY Consult reason:: resp failure History of Present Illness Admission Date/PCP: 10/09/17 15:36 History of Present Illness: TRENTON MCCOY is a 72 year old female to the hospital with complaint of shortness of breath. Patient states she has been short of breath for the last 2 days. . Patient reports that she has not had fever chills or nausea vomiting. Patient states that she has been exposed to sick contacts. Patient denies chest pain or hemoptysis,She appears somewhat confused and uncertain as to the specifics of the events leading up to this illness.Review of the chart suggests that she has had rest as well as lung cancer in the past Past Medical History Cardiac Medical History: Reports: Congestive Heart Failure, Coronary Artery Disease, Myocardial Infarction, Hypertension Denies: DVT, Hyperlipidema, Pulmonary Embolism Pulmonary Medical History: Reports: Asthma, Bronchitis, Chronic Obstructive Pulmonary Disease (COPD) - 2 L nasal home oxygen, Pneumonia, Respiratory Failure - Chronic respiratory failure Denies: Sleep Apnea, Tuberculosis Neurological Medical History: Denies: Seizures Endocrine Medical History: Reports: Hypothyroidism Denies: Diabetes Mellitus Type 1, Diabetes Mellitus Type 2, Hyperthyroidism Renal/ Medical History: Denies: End Stage Renal Disease Malignancy Medical History: Reports: Brain Cancer - Lung cancer with brain metastases, 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 GI Medical History: Reports: Gastroesophageal Reflux Disease Denies: Cirrhosis, Hepatitis Musculoskeltal Medical History: Reports: Arthritis Psychiatric Medical History: Reports: Dementia, Depression Denies: Bipolar Disorder Hematology: Reports: Anemia, Bleeding Tendencies Infectious Medical History: Reports: Clostridium Difficile Past Surgical History Past Surgical History: Reports: Cholecystectomy, Orthopedic Surgery - Foot surgery, Other - cataract bilateral Social History Smoking Status: Former Smoker Frequency of Alcohol Use: None Hx Recreational Drug Use: No Drugs: None Hx Prescription Drug Abuse: No Do you have pets?: Yes Have you had any respiratory illnesses as a child?: No Have you been exposed to any sick contacts recently?: No Have you had any recent respiratory illnesses?: No Have you travelled outside of [place] in the past 12 months?: No - Advance Directive Resuscitation Status: Full Code Family History Family History: COPD, Malignancy - Lung cancer Parental Family History Reviewed: Yes Children Family History Reviewed: Yes Sibling(s) Family History Reviewed.: Yes Medication/Allergy Home Medications: Amlodipine Besylate [Norvasc 2.5 mg Tablet] 2.5 mg PO DAILY 10/09/17 Furosemide [Lasix 20 mg Tablet] 20 mg PO BID 10/09/17 Levothyroxine Sodium [Synthroid 0.088 mg Tablet] 0.088 mg PO Q6AM 10/09/17 Lisinopril [Prinivil 5 mg Tablet] 5 mg PO DAILY 10/09/17 Metformin HCl [Metformin HCl ER] 500 mg PO WSUPPER 10/09/17 Pantoprazole Sodium [Protonix] 40 mg PO DAILY 10/09/17 Tiotropium Wilmore [Spiriva Handihaler 5 Cap/Kit (18 Mcg/Cap)] 1 puff IH DAILY 10/09/17 Allergies/Adverse Reactions: azithromycin Allergy (Verified 08/31/17 02:36) amoxicillin [Amoxicillin] Adverse Reaction (Verified 07/26/17 11:39) visual hallucinations erythromycin base [Erythromycin Base] Adverse Reaction (Verified 07/26/17 11:39) visual hallucinations Potassium Clavulanate * [From Augmentin] Adverse Reaction (Verified 07/26/17 11: 39) visual hallucinations Review of Systems Constitutional: PRESENT: fatigue, weakness. ABSENT: anorexia, headache(s), night sweats Eyes: ABSENT: visual disturbances Ears: ABSENT: hearing changes Nose, Mouth, and Throat: ABSENT: mouth pain, sore throat Cardiovascular: ABSENT: orthropnea, palpitations Respiratory: ABSENT: hemoptysis Gastrointestinal: ABSENT: abdominal pain, bloating, coffee ground emesis, dysphagia, heartburn, hematemesis, hematochezia, melena Genitourinary: ABSENT: dysuria, hematuria Integumentary: ABSENT: lesions, pruritus Neurological: ABSENT: abnormal gait, abnormal movements, abnormal speech, confusion, frequent falls, lack of coordination, memory loss, numbness Psychiatric: ABSENT: hallucinations, homidical ideation, suicidal ideation Endocrine: ABSENT: cold intolerance, heat intolerance Hematologic/Lymphatic: ABSENT: easy bruising Physical Exam Vital Signs: Temp Pulse Resp BP Pulse Ox 98.8 F 104 H 16 132/70 H 97 10/10/17 05:21 10/10/17 07:57 10/10/17 07:57 10/10/17 05:21 10/10/17 07:57 Intake & Output 10/09/17 10/10/17 10/11/17 06:59 06:59 06:59 Intake Total 455 Output Total 100 Balance 355 Weight 87.1 kg General appearance: PRESENT: no acute distress, cooperative, disheveled, well- developed Head exam: PRESENT: atraumatic, normocephalic Eye exam: PRESENT: conjunctiva pale, EOMI. ABSENT: nystagmus, periorbital swelling, scleral icterus Mouth exam: PRESENT: dry mucosa, neck supple, tongue midline Neck exam: ABSENT: carotid bruit, JVD, lymphadenopathy, thyromegaly, tracheal deviation, tracheostomy Respiratory exam: PRESENT: decreased breath sounds, prolonged expiratory phas, rhonchi, symmetrical, unlabored, wheezes. ABSENT: retraction, stridor, tachypnea Cardiovascular exam: PRESENT: RRR, +S1, +S2 Pulses: PRESENT: normal radial pulses GI/Abdominal exam: PRESENT: diminished bowel sounds, soft Extremities exam: ABSENT: calf tenderness, clubbing Musculoskeletal exam: ABSENT: deformity, dislocation Neurological exam: PRESENT: awake Psychiatric exam: PRESENT: flat affect, unusual affect Skin exam: PRESENT: dry, warm Results Laboratory Results: 10/10/17 04:35 10/10/17 04:35 10/10/17 10/10/17 04:35 04:35 WBC 7.8 RBC 2.46 L Hgb 8.1 L Hct 23.5 L MCV 95 MCH 32.8 MCHC 34.4 RDW 16.9 H Plt Count 181 Seg Neutrophils % Not Reportable Lymphocytes % Not Reportable Monocytes % Not Reportable Eosinophils % Not Reportable Basophils % Not Reportable Absolute Neutrophils Not Reportable Absolute Lymphocytes Not Reportable Absolute Monocytes Not Reportable Absolute Eosinophils Not Reportable Absolute Basophils Not Reportable Sodium 141.6 Potassium 4.1 Chloride 97 L Carbon Dioxide 35 H Anion Gap 10 BUN 19 Creatinine 0.77 Est GFR ( Amer) > 60 Est GFR (Non-Af Amer) > 60 Glucose 260 H Calcium 8.6 Total Bilirubin 0.1 L AST 16 ALT 36 Alkaline Phosphatase 63 Total Protein 5.0 L Albumin 3.1 L 10/09/17 10/09/17 10/10/17 16:13 22:00 04:35 Troponin I 0.023 < 0.012 < 0.012 Impressions: Chest X-Ray 10/09/17 09:22 IMPRESSION: 1 No significant interval changes since the prior examination dated 09/19/2017. No acute pulmonary findings. Assessment & Plan - Diagnosis (1) History of lung cancer Is this a current diagnosis for this admission?: Yes Plan: Require old medical records from [place] (2) History of breast cancer Is this a current diagnosis for this admission?: Yes Plan: Require old medical records from [place] (3) Acute and chronic respiratory failure with hypercapnia Is this a current diagnosis for this admission?: Yes Plan: Generic Name Dose Route Start Last Admin Trade Name Freq PRN Reason Stop Dose Admin Methylprednisolone Sodium Succinate 40 mg 10/09/17 22:00 10/10/17 13:56 Solu-Medrol Inj/Pf 40 Mg/1 Ml Sdv IV 11/08/17 21:59 40 mg Q8 SAM Levalbuterol HCl 1.25 mg 10/10/17 16:00 10/10/17 16:13 Xopenex Neb 1.25 Mg/3 Ml Ampul NEB 11/09/17 15:59 1.25 mg RTQ4 SAM Ipratropium Wilmore 0.5 mg 10/10/17 16:00 10/10/17 16:13 Atrovent 0.02% Neb 0.5 Mg/2.5 Ml Ampul NEB 11/09/17 15:59 0.5 mg RTQ4 SAM (4) Dementia Qualifiers: Dementia type: unspecified type Dementia behavioral disturbance: without behavioral disturbance Qualified Code(s): F03.90 - Unspecified dementia without behavioral disturbance Is this a current diagnosis for this admission?: Yes (5) Diastolic CHF Qualifiers: Qualified Code(s): I50.31 - Acute diastolic (congestive) heart failure Is this a current diagnosis for this admission?: Yes
[2017-10-10] MEDS ORDERED: IRON SUCROSE COMPLEX INJ/PF 100 MG/5 ML SDV IV SCH (16:30)
[2017-10-10] MEDS: NYSTATIN TOPICAL POWDER 15 GM TP SCH ×2 (17:41→22:19)
[2017-10-10] MEDS: INSULIN LISPRO 100 UNIT/ML 3 ML VIAL SUBCUT PRN ×2 (18:29→22:15)
[2017-10-11] MEDS: LEVALBUTEROL HCL NEB 1.25 MG/3 ML AMPUL NEB SCH ×5 (03:45→20:03)
[2017-10-11] MEDS: IPRATROPIUM BROMIDE 0.02% NEB 0.5 MG/2.5 ML AMPUL NEB SCH ×5 (03:46→20:11)
[2017-10-11] MEDS: LEVOTHYROXINE SODIUM 0.088 MG TABLET PO SCH (05:23)
[2017-10-11] MEDS: LANSOPRAZOLE 30 MG TAB.RAP.DR PO SCH (05:24)
[2017-10-11] MEDS: METHYLPREDNISOLONE INJ 40 MG/1 ML SDV IV SCH ×2 (05:24→14:42)
[2017-10-11 06:09] LABS: ALANINE AMINOTRANSFERASE 34 U/L (9-52); ALBUMIN 3.4 g/dL (3.5-5.0); ALKALINE PHOSPHATASE 61 U/L (38-126); ANION GAP 9 (5-19); ASPARTATE AMINO TRANSFERASE 18 U/L (14-36); BILIRUBIN,DIRECT 0.1 mg/dL (0.0-0.4); BILIRUBIN,TOTAL 0.2 mg/dL (0.2-1.3); BLOOD UREA NITROGEN 26 mg/dL (7-20); CARBON DIOXIDE 35 mmol/L (22-30); CHLORIDE 99 mmol/L (98-107); GLUCOSE 200 mg/dL (75-110); POTASSIUM 4.3 mmol/L (3.6-5.0); SODIUM 143.2 mmol/L (137-145); TOTAL PROTEIN 5.4 g/dL (6.3-8.2)
[2017-10-11 06:10] LABS: HEMATOCRIT 24.8 % (36.0-47.0); HEMOGLOBIN 8.5 g/dL (12.0-15.5); MEAN CORPUSCULAR HEMOGLOBIN 32.8 pg (27.0-33.4); MEAN CORPUSCULAR HGB CONC 34.2 g/dL (32.0-36.0); MEAN CORPUSCULAR VOLUME 96 fl (80-97); PLATELET COUNT 235 10^3/uL (150-450); RED BLOOD COUNT 2.59 10^6/uL (3.72-5.28); RED CELL DISTRIBUTION WIDTH 16.9 % (11.5-14.0); WHITE BLOOD COUNT 9.2 10^3/uL (4.0-10.5)
[2017-10-11 06:50] LABS: ABSOLUTE LYMPHOCYTES# (MANUAL) 0.4 10^3/uL (0.5-4.7); ABSOLUTE MONOCYTES # (MANUAL) 0.1 10^3/uL (0.1-1.4); ABSOLUTE NEUTROPHILS# (MANUAL) 8.7 10^3/uL (1.7-8.2); BAND NEUTROPHILS % (MANUAL) 1 % (3-5); BASOPHILS % (MANUAL) 0 % (0-2); EOSINOPHILS % (MANUAL) 0 % (0-6); LYMPHOCYTES % (MANUAL) 4 % (13-45); MONOCYTES % (MANUAL) 1 % (3-13); NUCLEATED RED BLOOD CELLS 2 /100 WBC (0); SEGMENTED NEUTROPHILS % (MAN) 94 % (42-78); TOTAL CELLS COUNTED 100
[2017-10-11 06:51] LABS: ANISOCYTOSIS 1+; OVALOCYTES SLIGHT; PLATELET COMMENT ADEQUATE; POIKILOCYTOSIS SLIGHT; POLYCHROMASIA SLIGHT; TOXIC GRANULATION SLIGHT
[2017-10-11] MEDS: LISINOPRIL 5 MG TABLET PO SCH (10:07)
[2017-10-11] MEDS: FUROSEMIDE INJ/PF 40 MG/4 ML SDV IV SCH (10:07)
[2017-10-11] MEDS: AMLODIPINE BESYLATE 2.5 MG TABLET PO SCH (10:07)
[2017-10-11] MEDS: NYSTATIN TOPICAL POWDER 15 GM TP SCH ×4 (10:08→22:10)
[2017-10-11] MEDS ORDERED: LORAZEPAM 0.5 MG TABLET PO PRN (10:19)
[2017-10-11] MEDS: INSULIN LISPRO 100 UNIT/ML 3 ML VIAL SUBCUT PRN ×3 (14:43→22:10)
[2017-10-11] MEDS ORDERED: BISACODYL 10 MG SUPP.RECT PR ONE ×2 (15:13→19:00)
--- NOTE | 2017-10-11 16:38 | PDOC PROGRESS REPORT ---
Subjective Progress Note for:: 10/11/17 Subjective:: 72 yo Female with NSCLC w/ metatstatic disease to the brain, Diastolic HF and COPD. Patient with persistent wheezing on exam today. Will escalate IV steroid dosing and add empiric Levaquin. Diastolic HF with daily Lasix 40mg IV. Last TTE was 2017, showed EF of 60% and evidence of Diastolic HF. Patient with no growth on cultures. Reason For Visit: ACUTE HYPOXIC RESPIRATORY FAILURE,ACUTE COPD Physical Exam Vital Signs: Temp Pulse Resp BP Pulse Ox 98.3 F 107 H 18 119/64 98 10/11/17 15:28 10/11/17 15:28 10/11/17 15:28 10/11/17 15:28 10/11/17 15:28 Intake & Output 10/10/17 10/11/17 10/12/17 06:59 06:59 06:59 Intake Total 455 1450 Output Total 100 1225 Balance 355 225 Weight 87.1 kg 89.3 kg General appearance: PRESENT: no acute distress, morbidly obese Head exam: PRESENT: atraumatic, normocephalic Eye exam: PRESENT: conjunctival injection, conjunctiva pale Mouth exam: PRESENT: moist, tongue midline Throat exam: PRESENT: tonsillar erythema, tonsillar exudate Neck exam: PRESENT: full ROM Respiratory exam: PRESENT: prolonged expiratory phas, rhonchi, wheezes. ABSENT : accessory muscle use, chest wall tenderness, rales Cardiovascular exam: PRESENT: +S1, +S2. ABSENT: bradycardia, irregular rhythm Pulses: PRESENT: normal radial pulses Vascular exam: PRESENT: normal capillary refill. ABSENT: pallor GI/Abdominal exam: ABSENT: diminished bowel sounds, distended, guarding, rebound Extremities exam: PRESENT: +1 edema. ABSENT: calf tenderness, clubbing, joint swelling Musculoskeletal exam: PRESENT: full ROM. ABSENT: tenderness Neurological exam: PRESENT: alert, oriented to person, oriented to place, CN II- XII grossly intact Psychiatric exam: ABSENT: agitated, anxious, flat affect, manic Skin exam: PRESENT: dry, intact, warm. ABSENT: cyanosis, normal color, rash Results Laboratory Results: 10/11/17 04:59 10/11/17 04:59 10/10/17 10/11/17 10/11/17 16:25 04:59 04:59 WBC 9.2 RBC 2.59 L Hgb 8.5 L Hct 24.8 L MCV 96 MCH 32.8 MCHC 34.2 RDW 16.9 H Plt Count 235 Seg Neutrophils % Not Reportable Lymphocytes % Not Reportable Monocytes % Not Reportable Eosinophils % Not Reportable Basophils % Not Reportable Absolute Neutrophils Not Reportable Absolute Lymphocytes Not Reportable Absolute Monocytes Not Reportable Absolute Eosinophils Not Reportable Absolute Basophils Not Reportable Sodium 143.2 Potassium 4.3 Chloride 99 Carbon Dioxide 35 H Anion Gap 9 BUN 26 H Creatinine 0.88 Est GFR ( Amer) > 60 Est GFR (Non-Af Amer) > 60 Glucose 200 H Calcium 9.0 Magnesium 2.2 Total Bilirubin 0.2 AST 18 ALT 34 Alkaline Phosphatase 61 Total Protein 5.4 L Albumin 3.4 L Blood Type O POSITIVE Antibody Screen NEGATIVE 10/09/17 10/09/17 10/10/17 16:13 22:00 04:35 Troponin I 0.023 < 0.012 < 0.012 Impressions: Chest X-Ray 10/09/17 09:22 IMPRESSION: 1 No significant interval changes since the prior examination dated 09/19/2017. No acute pulmonary findings. Assessment & Plan - Plan Summary Plan Summary: 1. Acute on chronic respiratory failure with hypercapnia Increasing IV steroids to 60 mg every 8 hours, adding Levaquin. Continue every 4 hours scheduled Xopenex/ipratropium neb treatment. She was persistent wheezing on exam today. 2. COPD exacerbation. Per above described problem. 3. Anemia. Received IV iron infusion, improved hemoglobin, monitor 4. Diastolic heart failure. giving 40mg IV lasix in AM and 20mg of IV lasix in PM restrict PO fluids to 1500 cc 4. Hypokalemia resolved 5. Metabolic alkalosis 6. Sinus tachycardia. monitor 7. Diabetes mellitus type 2. Sliding scale insulin 8. 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 9. Hx of Breast Malignancy. records pending.
[2017-10-11] MEDS ORDERED: METHYLPREDNISOLONE INJ 125 MG/2 ML SDV IV SCH (18:00)
[2017-10-11] MEDS: LEVOFLOXACIN 500 MG TABLET PO SCH (18:35)
[2017-10-11] MEDS: FUROSEMIDE INJ/PF 20 MG/2 ML SDV IV SCH (18:41)
--- NOTE | 2017-10-11 20:14 | PDOC PROGRESS REPORT ---
Subjective Progress Note for:: 10/11/17 Subjective:: feeling better Reason For Visit: ACUTE HYPOXIC RESPIRATORY FAILURE,ACUTE COPD Physical Exam Vital Signs: Temp Pulse Resp BP Pulse Ox 98.0 F 112 H 18 146/80 H 96 10/11/17 19:27 10/11/17 19:27 10/11/17 19:27 10/11/17 19:27 10/11/17 19:27 Intake & Output 10/10/17 10/11/17 10/12/17 06:59 06:59 06:59 Intake Total 455 1450 930 Output Total 100 1225 450 Balance 355 225 480 Weight 87.1 kg 89.3 kg General appearance: PRESENT: no acute distress, cooperative, disheveled, obese, well-developed Head exam: PRESENT: atraumatic, normocephalic Eye exam: PRESENT: conjunctiva pale, EOMI. ABSENT: nystagmus, periorbital swelling, scleral icterus Mouth exam: PRESENT: dry mucosa, neck supple, tongue midline Neck exam: ABSENT: carotid bruit, JVD, lymphadenopathy, thyromegaly, tracheal deviation, tracheostomy Respiratory exam: PRESENT: decreased breath sounds, prolonged expiratory phas, rales, rhonchi, symmetrical, unlabored, wheezes. ABSENT: retraction, stridor, tachypnea Cardiovascular exam: PRESENT: RRR, +S1, +S2 Pulses: PRESENT: normal radial pulses GI/Abdominal exam: PRESENT: diminished bowel sounds, soft Extremities exam: ABSENT: calf tenderness, clubbing, joint swelling Musculoskeletal exam: ABSENT: deformity Neurological exam: PRESENT: alert, awake Psychiatric exam: PRESENT: normal mood Skin exam: PRESENT: dry, warm Results Laboratory Results: 10/11/17 04:59 10/11/17 04:59 10/11/17 10/11/17 04:59 04:59 WBC 9.2 RBC 2.59 L Hgb 8.5 L Hct 24.8 L MCV 96 MCH 32.8 MCHC 34.2 RDW 16.9 H Plt Count 235 Seg Neutrophils % Not Reportable Lymphocytes % Not Reportable Monocytes % Not Reportable Eosinophils % Not Reportable Basophils % Not Reportable Absolute Neutrophils Not Reportable Absolute Lymphocytes Not Reportable Absolute Monocytes Not Reportable Absolute Eosinophils Not Reportable Absolute Basophils Not Reportable Sodium 143.2 Potassium 4.3 Chloride 99 Carbon Dioxide 35 H Anion Gap 9 BUN 26 H Creatinine 0.88 Est GFR ( Amer) > 60 Est GFR (Non-Af Amer) > 60 Glucose 200 H Calcium 9.0 Magnesium 2.2 Total Bilirubin 0.2 AST 18 ALT 34 Alkaline Phosphatase 61 Total Protein 5.4 L Albumin 3.4 L 10/09/17 10/09/17 10/10/17 16:13 22:00 04:35 Troponin I 0.023 < 0.012 < 0.012 Impressions: Chest X-Ray 10/09/17 09:22 IMPRESSION: 1 No significant interval changes since the prior examination dated 09/19/2017. No acute pulmonary findings. Assessment & Plan - Diagnosis (1) History of lung cancer Is this a current diagnosis for this admission?: Yes (2) History of breast cancer Is this a current diagnosis for this admission?: Yes (3) Acute and chronic respiratory failure with hypercapnia Is this a current diagnosis for this admission?: Yes Plan: improved (4) Dementia Qualifiers: Dementia type: unspecified type Dementia behavioral disturbance: without behavioral disturbance Qualified Code(s): F03.90 - Unspecified dementia without behavioral disturbance Is this a current diagnosis for this admission?: Yes Plan: doing well today (5) Diastolic CHF Qualifiers: Qualified Code(s): I50.31 - Acute diastolic (congestive) heart failure Is this a current diagnosis for this admission?: Yes
[2017-10-11] MEDS ORDERED: LACTULOSE SYRUP 20 GM/30 ML UDCUP PO ONE (20:15)
[2017-10-11] MEDS ORDERED: MINERAL OIL ENEMA 133 ML PR ONE (21:00)
[2017-10-11] MEDS: QUETIAPINE FUMARATE 25 MG TABLET PO SCH (22:08)
[2017-10-11] MEDS: METHYLPREDNISOLONE INJ 125 MG/2 ML SDV IV SCH (22:10)
[2017-10-12] MEDS: LEVALBUTEROL HCL NEB 1.25 MG/3 ML AMPUL NEB SCH ×7 (00:16→23:26)
[2017-10-12] MEDS: IPRATROPIUM BROMIDE 0.02% NEB 0.5 MG/2.5 ML AMPUL NEB SCH ×7 (00:16→23:26)
[2017-10-12] MEDS: LANSOPRAZOLE 30 MG TAB.RAP.DR PO SCH (05:08)
[2017-10-12] MEDS: LEVOTHYROXINE SODIUM 0.088 MG TABLET PO SCH (05:08)
[2017-10-12] MEDS: METHYLPREDNISOLONE INJ 125 MG/2 ML SDV IV SCH ×3 (05:08→22:07)
[2017-10-12 06:34] LABS: HEMATOCRIT 24.6 % (36.0-47.0); HEMOGLOBIN 8.4 g/dL (12.0-15.5); MEAN CORPUSCULAR HEMOGLOBIN 32.9 pg (27.0-33.4); MEAN CORPUSCULAR HGB CONC 34.3 g/dL (32.0-36.0); MEAN CORPUSCULAR VOLUME 96 fl (80-97); PLATELET COUNT 222 10^3/uL (150-450); RED BLOOD COUNT 2.56 10^6/uL (3.72-5.28); RED CELL DISTRIBUTION WIDTH 17.1 % (11.5-14.0); WHITE BLOOD COUNT 7.2 10^3/uL (4.0-10.5)
[2017-10-12 06:42] LABS: ALBUMIN 3.2 g/dL (3.5-5.0); ANION GAP 8 (5-19); BLOOD UREA NITROGEN 33 mg/dL (7-20); CARBON DIOXIDE 34 mmol/L (22-30); CHLORIDE 100 mmol/L (98-107); GLUCOSE 184 mg/dL (75-110); POTASSIUM 4.3 mmol/L (3.6-5.0)
[2017-10-12] MEDS: FUROSEMIDE INJ/PF 40 MG/4 ML SDV IV SCH (10:12)
[2017-10-12] MEDS: LISINOPRIL 5 MG TABLET PO SCH (10:13)
[2017-10-12] MEDS: AMLODIPINE BESYLATE 2.5 MG TABLET PO SCH (10:13)
[2017-10-12] MEDS: NYSTATIN TOPICAL POWDER 15 GM TP SCH ×4 (10:13→22:10)
[2017-10-12] MEDS: INSULIN LISPRO 100 UNIT/ML 3 ML VIAL SUBCUT PRN ×2 (12:57→22:07)
[2017-10-12] MEDS: LEVOFLOXACIN 500 MG TABLET PO SCH (18:31)
[2017-10-12] MEDS ORDERED: FUROSEMIDE INJ/PF 20 MG/2 ML SDV IV ONE (21:29)
--- NOTE | 2017-10-12 21:29 | PDOC PROGRESS REPORT ---
Subjective Progress Note for:: 10/12/17 Subjective:: 72 yo Female with NSCLC w/ metatstatic disease to the brain, Diastolic HF and COPD. Improved air movement, decreased wheezing today. Describes vomiting up breakfast this morning. State that she did not like the taste. Will need PT to work with the patient. Reason For Visit: ACUTE HYPOXIC RESPIRATORY FAILURE,ACUTE COPD Physical Exam Vital Signs: Temp Pulse Resp BP Pulse Ox 98.8 F 107 H 16 131/82 H 96 10/12/17 16:00 10/12/17 16:00 10/12/17 16:00 10/12/17 16:00 10/12/17 16:00 Intake & Output 10/11/17 10/12/17 10/13/17 06:59 06:59 06:59 Intake Total 1450 960 40 Output Total 1225 450 Balance 225 510 40 Weight 89.3 kg 89.8 kg General appearance: PRESENT: no acute distress, obese Head exam: PRESENT: atraumatic, normocephalic Eye exam: PRESENT: EOMI, PERRLA Mouth exam: PRESENT: moist, neck supple, tongue midline Neck exam: ABSENT: full ROM, tenderness Respiratory exam: ABSENT: crackles, rales, rhonchi, tachypnea Cardiovascular exam: PRESENT: RRR, +S1, +S2. ABSENT: diastolic murmur, systolic murmur Pulses: PRESENT: normal radial pulses, normal dorsalis pedis pul Vascular exam: PRESENT: normal capillary refill. ABSENT: pallor GI/Abdominal exam: PRESENT: normal bowel sounds. ABSENT: distended, firm, mass Extremities exam: ABSENT: clubbing, joint swelling Musculoskeletal exam: PRESENT: full ROM. ABSENT: normal inspection Neurological exam: PRESENT: altered, CN II-XII grossly intact Psychiatric exam: ABSENT: agitated, anxious, flat affect Focused psych exam: ABSENT: catatonic, delusional Skin exam: ABSENT: abrasion, mottled, normal color Results Laboratory Results: 10/12/17 05:05 10/12/17 05:05 10/12/17 10/12/17 05:05 05:05 WBC 7.2 RBC 2.56 L Hgb 8.4 L Hct 24.6 L MCV 96 MCH 32.9 MCHC 34.3 RDW 17.1 H Plt Count 222 Sodium 142.0 Potassium 4.3 Chloride 100 Carbon Dioxide 34 H Anion Gap 8 BUN 33 H Creatinine 0.83 Est GFR ( Amer) > 60 Est GFR (Non-Af Amer) > 60 Glucose 184 H Calcium 9.0 Phosphorus 4.0 Albumin 3.2 L 10/09/17 10/09/1718 16:13 22:00 04:35 Troponin I 0.023 < 0.012 < 0.012 Impressions: Chest X-Ray 10/09/17 09:22 IMPRESSION: 1 No significant interval changes since the prior examination dated 09/19/2017. No acute pulmonary findings. Assessment & Plan - Plan Summary Plan Summary: 1. Acute on chronic respiratory failure with hypercapnia on IV steroids to 60 mg every 8 hours, on Levaquin. Continue every 4 hours scheduled Xopenex/ipratropium neb treatment. wheezing, improved today 2. COPD exacerbation. Per above described problem. 3. Anemia. Received IV iron infusion, improved hemoglobin, monitor 4. Diastolic heart failure. giving 40mg IV lasix in AM and 20mg of IV lasix in PM restrict PO fluids to 1500 cc still has a net positive retention, good renal function increase evening to 40mg IV lasix total dosing. 4. Hypokalemia resolved 5. Metabolic alkalosis resolved 6. Sinus tachycardia. monitor 7. Diabetes mellitus type 2. Sliding scale insulin 8. 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 improving behavior 9. Hx of Breast Malignancy. records pending.
[2017-10-12] MEDS: FUROSEMIDE INJ/PF 20 MG/2 ML SDV IV SCH (21:53)
[2017-10-12] MEDS: QUETIAPINE FUMARATE 25 MG TABLET PO SCH (22:07)
[2017-10-13] MEDS: IPRATROPIUM BROMIDE 0.02% NEB 0.5 MG/2.5 ML AMPUL NEB SCH ×5 (03:53→20:20)
[2017-10-13] MEDS: LEVALBUTEROL HCL NEB 1.25 MG/3 ML AMPUL NEB SCH ×5 (03:53→20:21)
[2017-10-13] MEDS: LANSOPRAZOLE 30 MG TAB.RAP.DR PO SCH (05:10)
[2017-10-13] MEDS: METHYLPREDNISOLONE INJ 125 MG/2 ML SDV IV SCH ×3 (05:10→21:21)
[2017-10-13] MEDS: LEVOTHYROXINE SODIUM 0.088 MG TABLET PO SCH (05:10)
[2017-10-13 08:13] LABS: HEMOGLOBIN 8.7 g/dL (12.0-15.5); MEAN CORPUSCULAR HEMOGLOBIN 33.4 pg (27.0-33.4); MEAN CORPUSCULAR HGB CONC 34.9 g/dL (32.0-36.0); MEAN CORPUSCULAR VOLUME 96 fl (80-97); PLATELET COUNT 241 10^3/uL (150-450); RED BLOOD COUNT 2.61 10^6/uL (3.72-5.28); RED CELL DISTRIBUTION WIDTH 16.6 % (11.5-14.0); WHITE BLOOD COUNT 6.2 10^3/uL (4.0-10.5)
[2017-10-13 08:33] LABS: ALBUMIN 3.1 g/dL (3.5-5.0); ANION GAP 5 (5-19); BLOOD UREA NITROGEN 35 mg/dL (7-20); CALCIUM 8.6 mg/dL (8.4-10.2); CARBON DIOXIDE 33 mmol/L (22-30); CHLORIDE 101 mmol/L (98-107); GLUCOSE 168 mg/dL (75-110); PHOSPHORUS 3.1 mg/dL (2.5-4.5); POTASSIUM 3.7 mmol/L (3.6-5.0); SODIUM 139.4 mmol/L (137-145)
[2017-10-13] MEDS: NYSTATIN TOPICAL POWDER 15 GM TP SCH ×4 (10:02→21:21)
[2017-10-13] MEDS: AMLODIPINE BESYLATE 2.5 MG TABLET PO SCH (10:02)
[2017-10-13] MEDS: LISINOPRIL 5 MG TABLET PO SCH (10:02)
[2017-10-13] MEDS: FUROSEMIDE INJ/PF 40 MG/4 ML SDV IV SCH (10:02)
[2017-10-13] MEDS: INSULIN LISPRO 100 UNIT/ML 3 ML VIAL SUBCUT PRN ×3 (13:40→21:22)
[2017-10-13] MEDS: LEVOFLOXACIN 500 MG TABLET PO SCH (18:03)
[2017-10-13] MEDS: FUROSEMIDE INJ/PF 20 MG/2 ML SDV IV SCH (18:04)
[2017-10-13] MEDS: QUETIAPINE FUMARATE 25 MG TABLET PO SCH (21:21)
[2017-10-13] MEDS ORDERED: POTASSIUM CHLORIDE 10 MEQ TABLET.SA PO ONE (22:05)
[2017-10-13] MEDS ORDERED: FUROSEMIDE INJ/PF 20 MG/2 ML SDV IV ONE (22:06)
--- NOTE | 2017-10-13 22:09 | PDOC PROGRESS REPORT ---
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 Improved air movement, decreased wheezing today. Encouraged more mobility with nursing and sitting in chair. Continue IV lasix. IV steroids and aggressive neb therapy. Reason For Visit: ACUTE HYPOXIC RESPIRATORY FAILURE,ACUTE COPD Physical Exam Vital Signs: Temp Pulse Resp BP Pulse Ox 98.0 F 109 H 20 115/63 98 10/13/17 20:35 10/13/17 20:35 10/13/17 20:35 10/13/17 20:35 10/13/17 20:35 Intake & Output 10/12/17 10/13/17 10/14/17 06:59 06:59 06:59 Intake Total 960 280 358 Output Total 899 655 6857 Balance 510 20 642 Weight 89.8 kg 89.8 kg General appearance: PRESENT: no acute distress, obese Eye exam: PRESENT: EOMI, PERRLA. ABSENT: conjunctival injection Mouth exam: PRESENT: moist, neck supple, tongue midline Neck exam: ABSENT: tenderness, tracheal deviation Respiratory exam: PRESENT: wheezes. ABSENT: accessory muscle use, crackles, rales, rhonchi Cardiovascular exam: PRESENT: RRR, +S1, +S2. ABSENT: diastolic murmur, systolic murmur Pulses: PRESENT: normal radial pulses, normal dorsalis pedis pul Vascular exam: PRESENT: normal capillary refill. ABSENT: pallor GI/Abdominal exam: ABSENT: distended, firm, guarding, mass Extremities exam: ABSENT: calf tenderness, joint swelling Musculoskeletal exam: PRESENT: full ROM. ABSENT: tenderness Neurological exam: PRESENT: alert, oriented to person, oriented to place, oriented to time, CN II-XII grossly intact Psychiatric exam: ABSENT: agitated, anxious, manic Focused psych exam: ABSENT: delusional, paranoid Skin exam: ABSENT: abrasion, cyanosis, pallor Results Laboratory Results: 10/13/17 07:58 10/13/17 07:58 10/13/17 10/13/17 07:58 07:58 WBC 6.2 RBC 2.61 L Hgb 8.7 L Hct 25.0 L MCV 96 MCH 33.4 MCHC 34.9 RDW 16.6 H Plt Count 241 Sodium 139.4 Potassium 3.7 Chloride 101 Carbon Dioxide 33 H Anion Gap 5 BUN 35 H Creatinine 0.84 Est GFR ( Amer) > 60 Est GFR (Non-Af Amer) > 60 Glucose 168 H Calcium 8.6 Phosphorus 3.1 Albumin 3.1 L 10/09/17 10/09/1718 16:13 22:00 04:35 Troponin I 0.023 < 0.012 < 0.012 Impressions: Chest X-Ray 10/09/17 09:22 IMPRESSION: 1 No significant interval changes since the prior examination dated 09/19/2017. No acute pulmonary findings. Assessment & Plan - Plan Summary Plan Summary: 1. Acute on chronic respiratory failure with hypercapnia on IV steroids to 60 mg every 8 hours, on Levaquin. Continue every 4 hours scheduled Xopenex/ipratropium neb treatment. slowly improving wheezing. 2. COPD exacerbation. Per above described problem. 3. Anemia. Received IV iron infusion, improved hemoglobin, monitor 4. Diastolic heart failure. giving 40mg IV lasix in AM and 20mg of IV lasix in PM restrict PO fluids to 1500 cc giving additional lasix of 20mg IV this evening. 4. Hypokalemia replacing 5. Metabolic alkalosis resolved 6. Sinus tachycardia. monitor 7. Diabetes mellitus type 2. Sliding scale insulin 8. 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 improving behavior 9. Hx of Breast Malignancy. records pending.
[2017-10-14] MEDS: LEVALBUTEROL HCL NEB 1.25 MG/3 ML AMPUL NEB SCH ×7 (00:34→23:53)
[2017-10-14] MEDS: IPRATROPIUM BROMIDE 0.02% NEB 0.5 MG/2.5 ML AMPUL NEB SCH ×7 (00:34→23:53)
[2017-10-14 06:07] LABS: HEMOGLOBIN 9.2 g/dL (12.0-15.5); MEAN CORPUSCULAR HEMOGLOBIN 32.4 pg (27.0-33.4); MEAN CORPUSCULAR VOLUME 95 fl (80-97); PLATELET COUNT 273 10^3/uL (150-450); RED BLOOD COUNT 2.83 10^6/uL (3.72-5.28); RED CELL DISTRIBUTION WIDTH 16.6 % (11.5-14.0); WHITE BLOOD COUNT 7.3 10^3/uL (4.0-10.5)
[2017-10-14 06:22] LABS: ALBUMIN 3.2 g/dL (3.5-5.0); ANION GAP 7 (5-19); BLOOD UREA NITROGEN 40 mg/dL (7-20); CALCIUM 8.7 mg/dL (8.4-10.2); CARBON DIOXIDE 35 mmol/L (22-30); CHLORIDE 100 mmol/L (98-107); GLUCOSE 191 mg/dL (75-110); PHOSPHORUS 3.8 mg/dL (2.5-4.5); POTASSIUM 3.8 mmol/L (3.6-5.0); SODIUM 141.6 mmol/L (137-145)
[2017-10-14] MEDS: LANSOPRAZOLE 30 MG TAB.RAP.DR PO SCH (06:40)
[2017-10-14] MEDS: METHYLPREDNISOLONE INJ 125 MG/2 ML SDV IV SCH ×3 (06:41→21:44)
[2017-10-14] MEDS: LEVOTHYROXINE SODIUM 0.088 MG TABLET PO SCH (06:41)
[2017-10-14] MEDS: AMLODIPINE BESYLATE 2.5 MG TABLET PO SCH (10:36)
[2017-10-14] MEDS: FUROSEMIDE INJ/PF 40 MG/4 ML SDV IV SCH (10:36)
[2017-10-14] MEDS: LISINOPRIL 5 MG TABLET PO SCH (10:37)
[2017-10-14] MEDS: NYSTATIN TOPICAL POWDER 15 GM TP SCH ×4 (10:37→21:39)
--- NOTE | 2017-10-14 15:07 | PDOC PROGRESS REPORT ---
Subjective Progress Note for:: 10/14/17 Subjective:: Patient is a 72-year-old female who has had multiple admissions over the last several months for COPD with exacerbation. Currently, the chart reflects that she has a history of non-small cell lung cancer with metastases to the brain. 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 Today, she is noted to be diffusely wheezing. She was also complaining of feeling cold this morning. Reason For Visit: ACUTE HYPOXIC RESPIRATORY FAILURE,ACUTE COPD Physical Exam Vital Signs: Temp Pulse Resp BP Pulse Ox 98.9 F 110 H 18 111/85 97 10/14/17 11:22 10/14/17 14:00 10/14/17 11:49 10/14/17 11:22 10/14/17 11:49 Intake & Output 10/13/17 10/14/17 10/15/17 06:59 06:59 06:59 Intake Total 280 1526 666 Output Total 300 1700 800 Balance -20 -174 -134 Weight 89.8 kg 66.9 kg Additional comments: The patient is familiar to me. She is an obese female. She does look older than her age of 72. She is noted to be shivering but does not appear to be toxic. Her cognition and mentation are appropriate at this time. She has diffuse lung wheezing in all lung curtis. Her cardiac exam is slightly distant but she has a regular rate and rhythm. The abdomen is somewhat distended but she does not have guarding or rebound noted. There are no hernias or masses present. Bowel sounds are present in the lower quadrants. She does have trace to 1+ edema of the extremities. The skin is otherwise clean dry and intact without lesions or rashes. Results Laboratory Results: 10/14/17 05:17 10/14/17 05:17 10/14/17 10/14/17 05:17 05:17 WBC 7.3 RBC 2.83 L Hgb 9.2 L Hct 27.0 L MCV 95 MCH 32.4 MCHC 34.0 RDW 16.6 H Plt Count 273 Sodium 141.6 Potassium 3.8 Chloride 100 Carbon Dioxide 35 H Anion Gap 7 BUN 40 H Creatinine 0.92 Est GFR ( Amer) > 60 Est GFR (Non-Af Amer) > 60 Glucose 191 H Calcium 8.7 Phosphorus 3.8 Albumin 3.2 L 10/09/17 10/09/17 10/10/17 16:13 22:00 04:35 Troponin I 0.023 < 0.012 < 0.012 Impressions: Chest X-Ray 10/09/17 09:22 IMPRESSION: 1 No significant interval changes since the prior examination dated 09/19/2017. No acute pulmonary findings. Assessment & Plan - Diagnosis (1) COPD exacerbation Is this a current diagnosis for this admission?: Yes Plan: Patient likely has very advanced COPD. She has come in for multiple hospitalizations over the last several months. At this point time she is not stable to transition to oral steroids. Continue IV steroids, antibiotics and bronchodilators. (2) Acute and chronic respiratory failure with hypercapnia Is this a current diagnosis for this admission?: Yes Plan: Due to #1. Continue supplemental oxygen. Patient is at risk of progression with the need for noninvasive to invasive ventilation. (3) Delirium Is this a current diagnosis for this admission?: Yes Plan: As could be multifactorial due to electrolyte disturbances, hypercarbia, infection. It may also be from previous radiation to the brain. (4) Anemia Qualifiers: Anemia type: unspecified type Qualified Code(s): D64.9 - Anemia, unspecified Is this a current diagnosis for this admission?: Yes Plan: The patient received intravenous iron. (5) Hypokalemia Is this a current diagnosis for this admission?: Yes Plan: Replaced (6) Metabolic alkalosis Is this a current diagnosis for this admission?: Yes Plan: Resolved (7) Diabetes Qualifiers: Diabetes mellitus type: type 2 Diabetes mellitus long chain beamer insulin use: with long chain beamer use Diabetes mellitus complication status: with hyperglycemia Qualified Code(s): E11.65 - Type 2 diabetes mellitus with hyperglycemia; Z79.4 - terminologist (current) use of insulin; Z79.4 - terminologist (current) use of insulin; Z79.4 - terminologist (current) use of insulin; Z79.4 - correction (current ) use of insulin Is this a current diagnosis for this admission?: Yes Plan: Continue sliding scale insulin (8) Diastolic CHF Qualifiers: Qualified Code(s): I50.31 - Acute diastolic (congestive) heart failure Is this a current diagnosis for this admission?: Yes (9) Lung cancer metastatic to brain Is this a current diagnosis for this admission?: Yes Plan: In remission (10) Tachycardia Is this a current diagnosis for this admission?: Yes Plan: Likely due to her underlying respiratory status. However, this was an issue during her last admission. I may need to increase her amlodipine. - Time Time Spent with patient: 25-34 minutes - Inpatient Certification Medical Necessity: Significant Comorbidiites Make Outpatient Treatment Too Risky , Need Close Monitoring Due to Risk of Patient Decompensation, Need For Continuous Telemetry Monitoring, Need for Nebulizer Therapy and Monitoring of Response, Need for IV Antibiotics - Plan Summary Plan Summary: Patient continues to be very ill. She is not stable yet for transition to oral antibiotics. Her shivering episode this morning could indicate that she has a secondary infection. She will need to be followed closely over the next 24-48 hours. Discharge is not appropriate at this time.
[2017-10-14] MEDS: INSULIN LISPRO 100 UNIT/ML 3 ML VIAL SUBCUT PRN ×2 (16:02→21:43)
[2017-10-14] MEDS: LEVOFLOXACIN 500 MG TABLET PO SCH (17:13)
[2017-10-14] MEDS: FUROSEMIDE INJ/PF 20 MG/2 ML SDV IV SCH (17:13)
[2017-10-14] MEDS: QUETIAPINE FUMARATE 25 MG TABLET PO SCH (21:44)
[2017-10-15] MEDS: IPRATROPIUM BROMIDE 0.02% NEB 0.5 MG/2.5 ML AMPUL NEB SCH ×5 (04:16→20:09)
[2017-10-15] MEDS: LEVALBUTEROL HCL NEB 1.25 MG/3 ML AMPUL NEB SCH ×5 (04:16→20:09)
[2017-10-15] MEDS: METHYLPREDNISOLONE INJ 125 MG/2 ML SDV IV SCH ×2 (06:41→13:56)
[2017-10-15] MEDS: LANSOPRAZOLE 30 MG TAB.RAP.DR PO SCH (06:41)
[2017-10-15] MEDS: LEVOTHYROXINE SODIUM 0.088 MG TABLET PO SCH (06:41)
[2017-10-15] MEDS: INSULIN LISPRO 100 UNIT/ML 3 ML VIAL SUBCUT PRN ×4 (07:23→21:46)
[2017-10-15] MEDS ORDERED: AMLODIPINE BESYLATE 2.5 MG TABLET PO SCH (07:40)
[2017-10-15] MEDS: LISINOPRIL 5 MG TABLET PO SCH (10:35)
[2017-10-15] MEDS: FUROSEMIDE INJ/PF 40 MG/4 ML SDV IV SCH (10:36)
[2017-10-15] MEDS: NYSTATIN TOPICAL POWDER 15 GM TP SCH ×4 (10:39→21:45)
[2017-10-15] MEDS ORDERED: NITROGLYCERIN 0.4 MG/TAB 25 TAB/BOTTLE ONE (11:47)
[2017-10-15] MEDS ORDERED: NITROGLYCERIN 0.4 MG/TAB 25 TAB/BOTTLE SL PRN (13:00)
--- NOTE | 2017-10-15 15:25 | EKG REPORT ---
SEVERITY:- ABNORMAL ECG - SINUS TACHYCARDIA PROBABLE LEFT ATRIAL ABNORMALITY RIGHT BUNDLE BRANCH BLOCK : Confirmed by: Issa Martinez MD 15-Oct-2017 15:24:15
--- NOTE | 2017-10-15 16:35 | PDOC PROGRESS REPORT ---
Subjective Progress Note for:: 10/15/17 Subjective:: Patient is a 72-year-old female who has had multiple admissions over the last several months for COPD with exacerbation. Currently, the chart reflects that she has a history of non-small cell lung cancer with metastases to the brain. 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 Today, she told me that she has an appointment for cancer treatment in [place] on Tuesday, October 17, 2017. She was unable to confirm what type of lung cancer she has. Today, she felt well. We discussed discharging her at home which she was happy about. However, I did get a call from the nurses at approximately 12:00 stating that she had substernal chest pain. Her EKG is unchanged. She did get 1 dose of nitroglycerin with relief. Therefore, I am going to order troponins overnight. Reason For Visit: ACUTE HYPOXIC RESPIRATORY FAILURE,ACUTE COPD Physical Exam Vital Signs: Temp Pulse Resp BP Pulse Ox 98.5 F 111 H 16 130/72 H 100 10/15/17 16:00 10/15/17 16:00 10/15/17 16:00 10/15/17 16:00 10/15/17 16:00 Intake & Output 10/14/17 10/15/17 10/16/17 06:59 06:59 06:59 Intake Total 1526 676 136 Output Total 1700 800 Balance -174 -124 136 Weight 66.9 kg 85.5 kg Additional comments: The patient is an obese white female. She was in no distress this morning whatsoever. Her cognition and mentation remain intact. She has had some confusional episodes during her previous hospitalizations but she is at baseline to improved today. Her lungs continue to show wheezing throughout all lung curtis but she does not appear to be tachypneic. Her cardiac exam is regular without murmurs, gallops or rubs. The abdomen is obese but soft. Bowel sounds are present in the lower quadrants. She does not have guarding or rebound noted and there are no hernias or masses present. Lower extremities demonstrate only trace edema. The skin is otherwise warm dry and intact. She does appear to have slight pallor to the skin consistent with her anemia. Results Laboratory Results: 10/14/17 05:17 10/14/17 05:17 10/09/17 10/09/17 10/10/17 16:13 22:00 04:35 Troponin I 0.023 < 0.012 < 0.012 Impressions: Chest X-Ray 10/09/17 09:22 IMPRESSION: 1 No significant interval changes since the prior examination dated 09/19/2017. No acute pulmonary findings. Assessment & Plan - Diagnosis (1) COPD exacerbation Is this a current diagnosis for this admission?: Yes Plan: Patient likely has very advanced COPD. She has come in for multiple hospitalizations over the last several months. Compared to yesterday she appears to have turned the corner. I will transition her to oral steroids. We will continue her bronchodilator treatments. (2) Acute and chronic respiratory failure with hypercapnia Is this a current diagnosis for this admission?: Yes Plan: Due to #1. Continue supplemental oxygen. Patient is at risk of progression with the need for noninvasive to invasive ventilation, but, overnight she appears to have improved dramatically. (3) Delirium Is this a current diagnosis for this admission?: Yes Plan: As could be multifactorial due to electrolyte disturbances, hypercarbia, infection. It may also be from previous radiation to the brain. This now appears to be resolved. This was present on her previous admission. Her delirium does appear to be worse at night consistent with . (4) Anemia Qualifiers: Anemia type: unspecified type Qualified Code(s): D64.9 - Anemia, unspecified Is this a current diagnosis for this admission?: Yes Plan: The patient received intravenous iron. Hemoglobin is stable and she does not require a transfusion. (5) Hypokalemia Is this a current diagnosis for this admission?: Yes Plan: Replaced (6) Metabolic alkalosis Is this a current diagnosis for this admission?: Yes Plan: Likely due to steroids. (7) Diabetes Qualifiers: Diabetes mellitus type: type 2 Diabetes mellitus intermediate card tender insulin use: with half-way use Diabetes mellitus complication status: with hyperglycemia Qualified Code(s): E11.65 - Type 2 diabetes mellitus with hyperglycemia; Z79.4 - truck terminal manager (current) use of insulin; Z79.4 - truck terminal manager (current) use of insulin; Z79.4 - [facility] (current) use of insulin; Z79.4 - [facility] (current ) use of insulin Is this a current diagnosis for this admission?: Yes Plan: Continue sliding scale insulin (8) Diastolic CHF Qualifiers: Qualified Code(s): I50.31 - Acute diastolic (congestive) heart failure Is this a current diagnosis for this admission?: Yes Plan: I have increased the patient's dose of Norvasc. She may need this increased further for hypertension and tachycardia. (9) Lung cancer metastatic to brain Is this a current diagnosis for this admission?: Yes Plan: The patient told me today that she has an appointment on Monday. I will try to make sure that she can attend this appointment if she is clinically stable. (10) Tachycardia Is this a current diagnosis for this admission?: Yes Plan: Likely due to her underlying respiratory status. However, this was an issue during her last admission. I may need to increase her amlodipine. (11) Chest pain Is this a current diagnosis for this admission?: Yes Plan: EKG is okay. Patient will be on rule out protocol overnight. - Time Time Spent with patient: 25-34 minutes - Inpatient Certification Medical Necessity: Risk of Complication if Not Cared For in Hospital, Risk of Diagnosis Which Will Require Inpatient Eval/Care/Monitoring
[2017-10-15] MEDS ORDERED: FUROSEMIDE 20 MG TABLET PO ONE (17:00)
[2017-10-15] MEDS: LEVOFLOXACIN 500 MG TABLET PO SCH (17:01)
[2017-10-15] MEDS: PREDNISONE 20 MG TABLET PO SCH (17:01)
[2017-10-15] MEDS: QUETIAPINE FUMARATE 25 MG TABLET PO SCH (21:45)
[2017-10-16] MEDS: IPRATROPIUM BROMIDE 0.02% NEB 0.5 MG/2.5 ML AMPUL NEB SCH ×4 (00:06→12:41)
[2017-10-16] MEDS: LEVALBUTEROL HCL NEB 1.25 MG/3 ML AMPUL NEB SCH ×4 (00:07→12:41)
[2017-10-16 05:53] LABS: ANION GAP 12 (5-19); BLOOD UREA NITROGEN 55 mg/dL (7-20); CALCIUM 9.1 mg/dL (8.4-10.2); CARBON DIOXIDE 34 mmol/L (22-30); CHLORIDE 94 mmol/L (98-107); GLUCOSE 239 mg/dL (75-110); POTASSIUM 3.6 mmol/L (3.6-5.0); SODIUM 139.8 mmol/L (137-145)
[2017-10-16] MEDS: LEVOTHYROXINE SODIUM 0.088 MG TABLET PO SCH (06:41)
[2017-10-16] MEDS: LANSOPRAZOLE 30 MG TAB.RAP.DR PO SCH (06:41)
[2017-10-16] MEDS ORDERED: AMLODIPINE BESYLATE 2.5 MG TABLET PO SCH (07:25)
[2017-10-16] MEDS: INSULIN LISPRO 100 UNIT/ML 3 ML VIAL SUBCUT PRN (08:47)
[2017-10-16] MEDS ORDERED: FUROSEMIDE 20 MG TABLET PO SCH (10:00)
[2017-10-16] MEDS ORDERED: AMLODIPINE BESYLATE 10 MG TABLET PO SCH (10:00)
[2017-10-16] MEDS: PREDNISONE 20 MG TABLET PO SCH (10:38)
[2017-10-16] MEDS: NYSTATIN TOPICAL POWDER 15 GM TP SCH (10:39)
[2017-10-16] MEDS: LISINOPRIL 5 MG TABLET PO SCH (10:39)
[2017-10-16 11:20] VITALS: BP 124/63
--- NOTE | 2017-10-16 13:48 | PDOC DISCHARGE SUMMARY ---
General - Admit/Disc Date/PCP Admission Date/Primary Care Provider: 10/09/17 15:36 Discharge Date: 10/16/17 - Discharge Diagnosis (1) COPD exacerbation Is this a current diagnosis for this admission?: Yes (2) Acute and chronic respiratory failure with hypercapnia Is this a current diagnosis for this admission?: Yes (3) Delirium Is this a current diagnosis for this admission?: Yes (4) Anemia Is this a current diagnosis for this admission?: Yes (5) Hypokalemia Is this a current diagnosis for this admission?: Yes (6) Metabolic alkalosis Is this a current diagnosis for this admission?: Yes (7) Diabetes Is this a current diagnosis for this admission?: Yes (8) Diastolic CHF Is this a current diagnosis for this admission?: Yes (9) Lung cancer metastatic to brain Is this a current diagnosis for this admission?: Yes (10) Tachycardia Is this a current diagnosis for this admission?: Yes (11) Chest pain Is this a current diagnosis for this admission?: Yes - Additional Information Resuscitation Status: Full Code Discharge Diet: Cardiac, Diabetic Discharge Activity: Activity As Tolerated, Balance Activity w/Rest, Energy Conservation, Slowly Increase Activity, Weigh Daily Prescriptions: Amlodipine Besylate [Norvasc 10 mg Tablet] 10 mg PO DAILY 30 Days #30 tablet Levalbuterol HCl [Xopenex Neb 1.25 mg/3 ml Ampul] 1.25 mg NEB RTQ4HP PRN 30 Days #120 vial.neb PRN Reason: Nystatin [Mycostatin Topical Powder 15 gm] 1 applic TP QID 14 Days #1 bottle Prednisone [Deltasone 20 mg Tablet] 20 mg PO BID 28 Days #30 tablet Home Medications: Furosemide [Lasix 20 mg Tablet] 20 mg PO BID 10/09/17 Levothyroxine Sodium [Synthroid 0.088 mg Tablet] 0.088 mg PO Q6AM 10/09/17 Lisinopril [Prinivil 5 mg Tablet] 5 mg PO DAILY 10/09/17 Metformin HCl [Metformin HCl ER] 500 mg PO WSUPPER 10/09/17 Pantoprazole Sodium [Protonix] 40 mg PO DAILY 10/09/17 Tiotropium [place] [Spiriva Handihaler 5 Cap/Kit (18 Mcg/Cap)] 1 puff IH DAILY 10/09/17 Amlodipine Besylate [Norvasc 10 mg Tablet] 10 mg PO DAILY 30 Days #30 tablet Levalbuterol HCl [Xopenex Neb 1.25 mg/3 ml Ampul] 1.25 mg NEB RTQ4HP PRN 30 Days #120 vial.neb 10/16/17 Nystatin [Mycostatin Topical Powder 15 gm] 1 applic TP QID 14 Days #1 bottle Prednisone [Deltasone 20 mg Tablet] 20 mg PO BID 28 Days #30 tablet 10/16/17 History of Present Illness History of Present Illness: TRENTON MCCOY is a 72 year old female to the hospital with complaint of shortness of breath. Patient states she has been short of breath for the last 2 days. Patient states that she thinks it has to do with the pollen. Patient states that she had been doing well until she went outside during the warm weather. Patient states that her legs have been somewhat swollen but she is unsure if they are bigger than what they normally are. Patient denies any dark stools does admit to coughing up blood small amount sporadically. Patient reports that she has not had fever chills or nausea vomiting. Patient states that she has been exposed to sick contacts. Patient denies chest pain and hematemesis Hospital Course Hospital Course: Clinically, the patient has very advanced COPD. She presented with increasing shortness of breath. Please note that the patient has had multiple exacerbations of COPD with hospitalizations in the last several weeks and months. She has been offered discharge to a rehabilitation facility on numerous occasions but has continued to refuse this. The patient also has an underlying past medical history of small cell lung cancer with brain metastases. She has been treated for this and has been told that she is in remission. She does have an oncology follow-up appointment this week. She believes that the appointment is either the or of this week. In any event, she feels that she needs to make this appointment. The patient has been treated for COPD exacerbation this hospitalization with acute on chronic hypoxic respiratory failure. She has received intravenous corticosteroids and Levaquin. Now, her corticosteroids have been transitioned to oral. I was making arrangements to discharge the patient yesterday when she had atypical chest pain. She had sharp chest pain over the left anterior chest. Therefore, she was kept here for an additional evening for troponins. Her troponins have been very unremarkable in the range of 0.02. 3 troponins have been sent. The patient has also been tachycardic. Please note that this is not new for the patient. Her tachycardia is likely associated with her respiratory failure. During this hospitalization I have increased her dose of Norvasc from 2.5 mg to 5 mg and now 10 mg. She will be discharged on 10 mg. She is also receiving lealbuterol to negate the adverse effect of tachycardia secondary to albuterol. The patient is noted to have an elevated BUN. She did receive intermittent Lasix during this admission this has been discontinued. She does not have any evidence of gastrointestinal bleeding at this time. She has been receiving. GI prophylaxis with a proton pump inhibitor which will be continued at discharge. Physical Exam Vital Signs: Temp Pulse Resp BP Pulse Ox 98.5 F 94 20 124/63 100 10/16/17 11:05 10/16/17 12:41 10/16/17 12:41 10/16/17 11:05 10/16/17 12:41 Intake & Output 10/15/17 10/16/17 10/17/17 06:59 06:59 06:59 Intake Total 676 778 Output Total 800 875 Balance -124 -97 Weight 85.5 kg 84 kg Additional comments: The patient is a morbidly obese white female. She is tachypneic with a respiratory rate of approximately 16-18 with conversation. I have taken care of this patient before and this appears to be her baseline. Her cognition and mentation can wax and wane, but today she appears to be alert and oriented 3 and able to give a very competent medical history. Her lungs continue to show wheezing in all lung curtis. In fact, she has audible wheezing. This also appears to be her baseline. Her cardiac exam demonstrates a regular rate and rhythm without murmurs, gallops or rubs. The abdomen is obese but soft. Bowel sounds are present in the lower quadrants. She does not have guarding or rebound present and there are no hernias or masses present. Her lower extremities demonstrate trace to 1+ edema. The skin is clean, warm, dry and intact. No lesions or rashes are noted. Results Laboratory Results: 10/14/17 05:17 10/16/17 04:35 10/16/17 04:35 Sodium 139.8 Potassium 3.6 Chloride 94 L Carbon Dioxide 34 H Anion Gap 12 BUN 55 H Creatinine 0.92 Est GFR ( Amer) > 60 Est GFR (Non-Af Amer) > 60 Glucose 239 H Calcium 9.1 Magnesium 2.2 10/09/17 10/09/17 10/10/17 16:13 22:00 04:35 Troponin I 0.023 < 0.012 < 0.012 10/15/17 10/15/17 10/16/17 16:40 22:55 04:35 Troponin I 0.022 0.023 0.020 Impressions: Chest X-Ray 10/09/17 09:22 IMPRESSION: 1 No significant interval changes since the prior examination dated 09/19/2017. No acute pulmonary findings. Qualifiers - * PATEINT BEING DISCHARGED WITH ANY OF THE FOLLOWING DIAGNOSIS?: No Plan Discharge Plan: 1. Discharge to home 2. Discharge diet will be cardiac/carbohydrate controlled. 3. Follow-up with oncology in [facility] as previously scheduled. 4. Follow-up with primary healthcare representative in 1 week Time Spent: Greater than 30 Minutes
--- NOTE | 2017-10-22 19:18 | PDOC PROGRESS REPORT ---
Subjective Progress Note for:: 10/12/17 Subjective:: feeling better Reason For Visit: ACUTE HYPOXIC RESPIRATORY FAILURE,ACUTE COPD Physical Exam Vital Signs: Temp Pulse Resp BP Pulse Ox 98.5 F 94 20 124/63 100 10/16/17 11:05 10/16/17 12:41 10/16/17 12:41 10/16/17 11:05 10/16/17 12:41 Intake & Output 10/15/17 10/16/17 10/17/17 06:59 06:59 06:59 Intake Total 676 778 Output Total 800 875 Balance -124 -97 Weight 85.5 kg 84 kg General appearance: PRESENT: no acute distress, cooperative, disheveled Head exam: PRESENT: atraumatic, normocephalic Eye exam: PRESENT: conjunctiva pale, EOMI Mouth exam: PRESENT: moist, neck supple, tongue midline Neck exam: ABSENT: carotid bruit, JVD, lymphadenopathy, thyromegaly, tracheal deviation, tracheostomy Respiratory exam: PRESENT: decreased breath sounds, prolonged expiratory phas, rales, rhonchi, symmetrical, unlabored. ABSENT: retraction, stridor, tachypnea Cardiovascular exam: PRESENT: RRR, +S1, +S2 Pulses: PRESENT: normal radial pulses GI/Abdominal exam: PRESENT: diminished bowel sounds, soft Extremities exam: ABSENT: clubbing, joint swelling Musculoskeletal exam: ABSENT: deformity, dislocation Neurological exam: PRESENT: awake Skin exam: PRESENT: dry, warm Results Laboratory Results: 10/14/17 05:17 10/16/17 04:35 10/16/17 04:35 Sodium 139.8 Potassium 3.6 Chloride 94 L Carbon Dioxide 34 H Anion Gap 12 BUN 55 H Creatinine 0.92 Est GFR ( Amer) > 60 Est GFR (Non-Af Amer) > 60 Glucose 239 H Calcium 9.1 Magnesium 2.2 10/09/17 10/09/17 10/10/17 16:13 22:00 04:35 Troponin I 0.023 < 0.012 < 0.012 10/15/17 10/15/17 10/16/17 16:40 22:55 04:35 Troponin I 0.022 0.023 0.020 Impressions: Chest X-Ray 10/09/17 09:22 IMPRESSION: 1 No significant interval changes since the prior examination dated 09/19/2017. No acute pulmonary findings. Assessment & Plan - Diagnosis (1) History of lung cancer Is this a current diagnosis for this admission?: Yes Plan: Require old medical records from [place] (2) History of breast cancer Is this a current diagnosis for this admission?: Yes Plan: Require old medical records from [place] (3) Acute and chronic respiratory failure with hypercapnia Is this a current diagnosis for this admission?: Yes Plan: improved (4) Dementia Qualifiers: Dementia type: unspecified type Dementia behavioral disturbance: without behavioral disturbance Qualified Code(s): F03.90 - Unspecified dementia without behavioral disturbance Is this a current diagnosis for this admission?: Yes Plan: doing well today (5) Diastolic CHF Is this a current diagnosis for this admission?: Yes
--- NOTE | 2017-10-22 19:21 | PDOC PROGRESS REPORT ---
Subjective Progress Note for:: 10/16/17 Subjective:: feeling better Reason For Visit: ACUTE HYPOXIC RESPIRATORY FAILURE,ACUTE COPD Physical Exam Vital Signs: Temp Pulse Resp BP Pulse Ox 98.5 F 94 20 124/63 100 10/16/17 11:05 10/16/17 12:41 10/16/17 12:41 10/16/17 11:05 10/16/17 12:41 Intake & Output 10/15/17 10/16/17 10/17/17 06:59 06:59 06:59 Intake Total 676 778 Output Total 800 875 Balance -124 -97 Weight 85.5 kg 84 kg General appearance: PRESENT: no acute distress, cooperative, disheveled Head exam: PRESENT: atraumatic, normocephalic Eye exam: PRESENT: conjunctiva pale, EOMI Mouth exam: PRESENT: dry mucosa, neck supple, tongue midline Neck exam: ABSENT: carotid bruit, JVD, lymphadenopathy, thyromegaly, tracheostomy Respiratory exam: PRESENT: decreased breath sounds, prolonged expiratory phas, rhonchi, symmetrical, unlabored. ABSENT: retraction, stridor, tachypnea Cardiovascular exam: PRESENT: RRR, +S1, +S2 Pulses: PRESENT: normal radial pulses GI/Abdominal exam: PRESENT: diminished bowel sounds, soft Extremities exam: ABSENT: clubbing, joint swelling Musculoskeletal exam: ABSENT: deformity, dislocation Neurological exam: PRESENT: awake Skin exam: PRESENT: dry, warm Results Laboratory Results: 10/14/17 05:17 10/16/17 04:35 10/16/17 04:35 Sodium 139.8 Potassium 3.6 Chloride 94 L Carbon Dioxide 34 H Anion Gap 12 BUN 55 H Creatinine 0.92 Est GFR ( Amer) > 60 Est GFR (Non-Af Amer) > 60 Glucose 239 H Calcium 9.1 Magnesium 2.2 10/09/17 10/09/17 10/10/17 16:13 22:00 04:35 Troponin I 0.023 < 0.012 < 0.012 10/15/17 10/15/17 10/16/17 16:40 22:55 04:35 Troponin I 0.022 0.023 0.020 Impressions: Chest X-Ray 10/09/17 09:22 IMPRESSION: 1 No significant interval changes since the prior examination dated 09/19/2017. No acute pulmonary findings. Assessment & Plan - Diagnosis (1) History of lung cancer Is this a current diagnosis for this admission?: Yes Plan: Require old medical records from [place] (2) History of breast cancer Is this a current diagnosis for this admission?: Yes Plan: Require old medical records from [place] (3) Acute and chronic respiratory failure with hypercapnia Is this a current diagnosis for this admission?: Yes Plan: improved (4) Dementia Qualifiers: Dementia type: unspecified type Dementia behavioral disturbance: without behavioral disturbance Qualified Code(s): F03.90 - Unspecified dementia without behavioral disturbance Is this a current diagnosis for this admission?: Yes Plan: doing well today (5) Diastolic CHF Is this a current diagnosis for this admission?: Yes
== END 2017-10-16 15:27 | disposition home or self-care (01) | DRG 189 ==
LOC: ER 09:20 → EH 15:36 → UNDOADMIN 15:51 → 4W 18:50
PROVIDERS: ADMIT Emergency Medicine; ATTEND Emergency Medicine
DX: J96.22 Acute and chronic respiratory failure with hypercapnia (principal); I50.33 Acute on chronic diastolic (congestive) heart failure; J44.1 Chronic obstructive pulmonary disease with (acute) exacerbation; C34.90 Malignant neoplasm of unspecified part of unspecified bronchus or lung; C79.31 Secondary malignant neoplasm of brain; E87.3 Alkalosis; Z99.81 Dependence on supplemental oxygen; I25.10 Atherosclerotic heart disease of native coronary artery without angina pectoris; I11.0 Hypertensive heart disease with heart failure; E11.8 Type 2 diabetes mellitus with unspecified complications; R07.89 Other chest pain; D50.9 Iron deficiency anemia, unspecified; E03.9 Hypothyroidism, unspecified; E87.6 Hypokalemia; R00.0 Tachycardia, unspecified; K21.9 Gastro-esophageal reflux disease without esophagitis; F03.90 Unspecified dementia, unspecified severity, without behavioral disturbance, psychotic disturbance, mood disturbance, and anxiety; G47.33 Obstructive sleep apnea (adult) (pediatric); Z79.2 Long term (current) use of antibiotics; Z79.51 Long term (current) use of inhaled steroids; Z79.52 Long term (current) use of systemic steroids; Z79.899 Other long term (current) drug therapy
CPT/HCPCS: 36415; 71045; 80048; 80053; 80069; 81001; 82272; 82550; 82553; 82607; 82728; 82746; 82803; 82962; 83540; 83550; 83735; 84466; 84484; 85025; 85027; 85045; 86850; 86900; 86901; 93005; 93010; 94640; 94660; 96365; 96375; 99285; G8978-GP; G8979-GP; J1815; J1940; J2920; J2930; J3475; J3490; J7512; J7620

== ENCOUNTER 2017-10-18 16:35 | Inpatient (IN) | payer MEDICARE, OTHER ==
--- NOTE | 2017-10-18 17:50 | ER Document Report ---
ED GI Bleed / Rectal Pain - General Chief Complaint: hypotension Stated Complaint: LOW BLOOD PRESSURE Time Seen by Provider: 10/18/17 17:40 Mode of Arrival: Medic Information source: Patient, Emergency Med Personnel TRAVEL OUTSIDE OF THE [place] IN LAST 30 DAYS: No - HPI Patient complains to provider of: Dark/tarry stools Onset: Other - 3 DAYS Timing/Duration: Worse - MORE FREQUENT TODAY Quality of pain: No pain Rectal bleeding: Other - MELENA Dark Stools: Black Rectal foreign body: No Use of: ASA, NSAIDS - IBUPROFEN Associated symptoms: Fainting/dizzy/lightheade Exacerbated by: Denies Relieved by: Denies Similar symptoms previously: No Recently seen / treated by doctor: Yes - PCP, TODAY, SENT TO E.D. - Related Data Allergies/Adverse Reactions: azithromycin Allergy (Verified 08/31/17 02:36) amoxicillin [Amoxicillin] Adverse Reaction (Verified 07/26/17 11:39) visual hallucinations erythromycin base [Erythromycin Base] Adverse Reaction (Verified 07/26/17 11:39) visual hallucinations Potassium Clavulanate * [From Augmentin] Adverse Reaction (Verified 07/26/17 11: 39) visual hallucinations Past Medical History - General Information source: Patient - Social History Smoking Status: Former Smoker - QUIT x 15 YRS. Cigarette use (# per day): No Chew tobacco use (# tins/day): No Frequency of alcohol use: None Drug Abuse: None Lives with: Alone Family History: COPD, Malignancy - Lung cancer Patient has suicidal ideation: No Patient has homicidal ideation: No - Past Medical History Cardiac Medical History: Reports: Hx Congestive Heart Failure, Hx Coronary Artery Disease, Hx Heart Attack, Hx Hypertension Denies: Hx DVT, Hx Hypercholesterolemia, Hx Pulmonary Embolism Pulmonary Medical History: Reports: Hx Asthma, Hx Bronchitis, Hx COPD - 2 L nasal home oxygen, Hx Pneumonia, Hx Respiratory Failure - Chronic respiratory failure Denies: Hx Sleep Apnea, Hx Tuberculosis Neurological Medical History: Denies: Hx Seizures Endocrine Medical History: Reports: Hx Hypothyroidism. Denies: Hx Diabetes Mellitus Type 1, Hx Diabetes Mellitus Type 2, Hx Hyperthyroidism Renal/ Medical History: Denies: Hx End Stage Renal Disease, Hx Kidney Stones, Hx Peritoneal Dialysis Malignancy Medical History: Reports: Hx Brain Cancer - Lung cancer with brain metastases, 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 GI Medical History: Reports: Hx Gastroesophageal Reflux Disease. Denies: Hx Cirrhosis, Hx Hepatitis, Hx Ulcer Musculoskeltal Medical History: Reports Hx Arthritis, Denies Hx Multiple Sclerosis, Reports Hx Musculoskeletal Deformity, Reports Hx Musculoskeletal Trauma Psychiatric Medical History: Reports: Hx Dementia, Hx Depression Denies: Hx Bipolar Disorder, Hx Schizophrenia Infectious Medical History: Reports: Hx C-Diff. Denies: Hx Hepatitis Past Surgical History: Reports: Hx Cholecystectomy, Hx Orthopedic Surgery - Foot surgery, Other - cataract bilateral - Immunizations Hx Diphtheria, Pertussis, Tetanus Vaccination: Yes Hx Pneumococcal Vaccination: 08/30/12 Review of Systems - Review of Systems Constitutional: Weakness EENT: No symptoms reported Cardiovascular: No symptoms reported Respiratory: No symptoms reported Genitourinary: No symptoms reported Female Genitourinary: Post menopausal Musculoskeletal: No symptoms reported Skin: No symptoms reported Neurological/Psychological: Weakness Physical Exam - Vital signs Vitals: BP 100/61 10/18/17 16:42 Interpretation: Hypotensive. No: Tachycardic, Tachypneic - General General appearance: Appears well, Alert In distress: None - HEENT Head: Normocephalic Eyes: Normal. No: Pale conjunctiva Conjunctiva: Normal Ears: Normal Nasal: Normal Mouth/Lips: Normal Mucous membranes: Normal Pharynx: Normal Neck: Normal - Respiratory Respiratory status: No respiratory distress Breath sounds: Normal - Cardiovascular Rhythm: Regular Heart sounds: Normal auscultation Murmur: No - Abdominal Inspection: Normal Distension: No distension Bowel sounds: Normal Tenderness: Nontender - Rectal Tenderness: No Stool: Other - LIGHT BROWN MUCUS. Hemorrhoids: None - Back Back: Normal - Extremities General upper extremity: Normal inspection General lower extremity: Normal inspection. No: Tender, Edema - Neurological Neuro grossly intact: Yes Cognition: Normal Orientation: AAOx4 - Psychological Associated symptoms: Normal affect, Normal mood - Skin Skin Temperature: Warm Skin Moisture: Dry Skin Color: Normal Skin Turgor: Elastic Course - Vital Signs Vital signs: Temp Pulse Resp BP Pulse Ox 98.1 F 19 97/65 L 99 10/18/17 17:43 10/18/17 20:10 10/18/17 20:10 10/18/17 20:10 - Laboratory Result Diagrams: 10/18/17 17:40 10/18/17 17:40 Laboratory results interpreted by me: 10/18/17 10/18/17 10/18/17 17:40 17:40 17:40 WBC 11.0 H RBC 3.28 L Hgb 10.5 L Hct 31.6 L RDW 17.8 H Seg Neuts % (Manual) 84 H Lymphocytes % (Manual) 9 L Abs Neuts (Manual) 9.6 H Potassium 3.3 L Carbon Dioxide 36 H BUN 39 H Glucose 121 H Creatine Kinase < 20 L Total Protein 5.2 L Albumin 3.1 L - EKG Interpretation by Ny EKG shows normal: Sinus rhythm, Leland, Intervals, ST-T Waves. abnormal: QRS Complexes Rate: Normal Rhythm: NSR Leland/QRS: RBBB - Consults DR. MCKNIGHT Time consulted: 19:40 Consulted provider: will come to ER Discharge - Discharge Clinical Impression: Hypotension Qualifiers: Hypotension type: unspecified hypotension type Qualified Code(s): I95.9 - Hypotension, unspecified Condition: Fair Disposition: ADMITTED INPATIENT Admitting Provider: Hospitalist Unit Admitted: Telemetry
[2017-10-18] MEDS ORDERED: PANTOPRAZOLE SODIUM 40 MG VIAL IV ONE (17:51)
[2017-10-18 17:53] LABS: HEMATOCRIT 31.6 % (36.0-47.0); HEMOGLOBIN 10.5 g/dL (12.0-15.5); MEAN CORPUSCULAR HEMOGLOBIN 32.1 pg (27.0-33.4); MEAN CORPUSCULAR HGB CONC 33.3 g/dL (32.0-36.0); MEAN CORPUSCULAR VOLUME 96 fl (80-97); PLATELET COUNT 235 10^3/uL (150-450); RED BLOOD COUNT 3.28 10^6/uL (3.72-5.28); RED CELL DISTRIBUTION WIDTH 17.8 % (11.5-14.0)
[2017-10-18] MEDS ORDERED: NORMAL SALINE 500 ML IV ONE ×3 (18:02→19:32)
[2017-10-18 18:05] LABS: INTERNATIONAL RATION (INR) 0.89; PROTHROMBIN TIME 12.7 SEC (11.4-15.4)
[2017-10-18 18:14] LABS: ALANINE AMINOTRANSFERASE 30 U/L (9-52); ALBUMIN 3.1 g/dL (3.5-5.0); ALKALINE PHOSPHATASE 66 U/L (38-126); ASPARTATE AMINO TRANSFERASE 18 U/L (14-36); BILIRUBIN,DIRECT 0.3 mg/dL (0.0-0.4); BILIRUBIN,TOTAL 0.3 mg/dL (0.2-1.3); BLOOD UREA NITROGEN 39 mg/dL (7-20); CALCIUM 8.9 mg/dL (8.4-10.2); GLUCOSE 121 mg/dL (75-110); TOTAL PROTEIN 5.2 g/dL (6.3-8.2)
[2017-10-18 18:16] LABS: ABSOLUTE MONOCYTES # (MANUAL) 0.4 10^3/uL (0.1-1.4); ABSOLUTE NEUTROPHILS# (MANUAL) 9.6 10^3/uL (1.7-8.2); BAND NEUTROPHILS % (MANUAL) 3 % (3-5); BASOPHILS % (MANUAL) 0 % (0-2); EOSINOPHILS % (MANUAL) 0 % (0-6); LYMPHOCYTES % (MANUAL) 9 % (13-45); MONOCYTES % (MANUAL) 4 % (3-13); SEGMENTED NEUTROPHILS % (MAN) 84 % (42-78); TOTAL CELLS COUNTED 100
[2017-10-18 18:18] LABS: ANISOCYTOSIS 1+; OVALOCYTES SLIGHT; PLATELET COMMENT ADEQUATE; POIKILOCYTOSIS SLIGHT
[2017-10-18 18:32] LABS: POTASSIUM 3.3 mmol/L (3.6-5.0)
[2017-10-18 18:38] LABS: CARBON DIOXIDE 36 mmol/L (22-30); CHLORIDE 100 mmol/L (98-107); SODIUM 140.8 mmol/L (137-145)
[2017-10-18 18:43] LABS: ANION GAP 5 (5-19)
[2017-10-18] MEDS ORDERED: ACETAMINOPHEN 325 MG TABLET PO ONE (19:02)
[2017-10-18 19:05] LABS: CREATINE KINASE MB 0.71 ng/mL (<4.55); TROPONIN I 0.03 ng/mL
--- NOTE | 2017-10-18 19:51 | RADIOLOGY REPORT (SQ) ---
EXAM DESCRIPTION: CHEST SINGLE VIEW COMPLETED DATE/TIME: 10/18/2017 7:26 pm REASON FOR STUDY: HYPOTENSION, H/O COPD COMPARISON: 10/09/2017 EXAM PARAMETERS: NUMBER OF VIEWS: One view. TECHNIQUE: Single frontal radiographic view of the chest acquired. RADIATION DOSE: NA LIMITATIONS: None. FINDINGS: LUNGS AND PLEURA: No opacities, masses or pneumothorax. No pleural effusion. MEDIASTINUM AND HILAR STRUCTURES: There are stable changes and right hilum. HEART AND VASCULAR STRUCTURES: Heart normal in size. Normal vasculature. BONES: No acute findings. HARDWARE: None in the chest. OTHER: No other significant finding. IMPRESSION: There is no acute cardiopulmonary disease. No interval change. TECHNICAL DOCUMENTATION: JOB ID: [id number] [employer]- All Rights Reserved Reading location - IP/workstation name: [email or web address]
[2017-10-18] MEDS ORDERED: DOCUSATE SODIUM 100 MG CAPSULE PO PRN (20:52)
[2017-10-18] MEDS ORDERED: PROMETHAZINE HCL INJ 25 MG/1 ML VIAL IV PRN (20:52)
[2017-10-18] MEDS ORDERED: DEXTROSE 40% GEL 15 GM TUBE PO PRN ×2 (21:02)
[2017-10-18] MEDS ORDERED: GLUCAGON,HUMAN RECOMB 1 MG INJ IM PRN (21:02)
[2017-10-18] MEDS ORDERED: DEXTROSE 50%-WATER 25 GM/50 ML DISP.SYRIN IV PRN ×2 (21:02)
--- NOTE | 2017-10-18 21:47 | RADIOLOGY REPORT (SQ) ---
EXAM DESCRIPTION: FOOT RIGHT COMPLETE COMPLETED DATE/TIME: 10/18/2017 9:36 pm REASON FOR STUDY: foot pain post recent fall. COMPARISON: None. NUMBER OF VIEWS: Three views. TECHNIQUE: AP, lateral and oblique radiographic images acquired of the right foot. LIMITATIONS: None. FINDINGS: MINERALIZATION: Osteopenia. BONES: On the oblique view there is an irregular appearance of the 4th proximal phalanx. This is not appreciated on the AP view or the lateral view appear JOINTS: No effusions. SOFT TISSUES: No soft tissue swelling. No foreign body. OTHER: No other significant finding. IMPRESSION: Cannot exclude fracture of the 4th proximal phalanx. TECHNICAL DOCUMENTATION: JOB ID: [id number] [employer]- All Rights Reserved Reading location - IP/workstation name: [email or web address]
[2017-10-18] MEDS: FLUTICASONE/SALMETEROL DISKUS 250-50 MCG/DOSE IH SCH (22:03)
[2017-10-18] MEDS: NORMAL SALINE 1000 ML 1,000 ML IV PRN (22:04)
[2017-10-18 22:22] LABS: INTERNATIONAL RATION (INR) 0.94; PROTHROMBIN TIME 13.3 SEC (11.4-15.4)
--- NOTE | 2017-10-18 23:03 | EKG REPORT ---
SEVERITY:- ABNORMAL ECG - SINUS RHYTHM RIGHT BUNDLE BRANCH BLOCK : Confirmed by: Mercedes Solomon 18-Oct-2017 23:02:52
[2017-10-18] MEDS ORDERED: POTASSIUM CHLORIDE 10 MEQ TABLET.SA PO ONE (23:29)
--- NOTE | 2017-10-19 00:16 | PDOC H&P ---
History of Present Illness Patient complains of: Dark stools x 3 days. Her blood pressure was reportedly 72/48 at her PCPs office. 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 The patient was last hospitalized here from 10/09/2017 to 10/16/2017 with COPD exacerbation. I am not sure how accurate the history provided by the patient so most of the information was obtained from the ED physician and notes. According to the ED physician, the patient has been complaining of dark stool for the last 3 days and when she followed with her primary physician, she was found to be hypotensive so she was sent to the hospital for further management and treatment. The patient denied any chest pain and she said that she has chronic shortness of breath. She also denied any fever, chills, nausea or vomiting, abdominal pain, diarrhea, constipation or any dark stool or poor appetite. She said that she felt dizzy/lightheaded lately but she denied any urinary symptoms. She lives by herself but she said that Crystal (possibly family member and/or aid) helps her with her medications. She said that she takes ibuprofen 600 mg and one baby aspirin daily. She is also on Protonix 40 mg daily when I looked throughout her medications bottles that she brought with her. The patient also complained of right foot pain after she reportedly fell during her last hospitalization here. In the ED, her temperature 97.7, heart rate 98, respiratory rate 35 (down to 16) , blood pressure 100/61 with oxygen saturation of 100% on 2 L nasal cannula. Her hemoglobin was 10.5 (up from 9.2 on 10/14/2017) and her WBC was 11.0. UA pending. Her initial troponin was 0.03 and she was Hemoccult negative. She received 2 L of normal saline with improvement of her blood pressure to 97/87 with MAP of 69. Past Medical History Medical History: Other - According to the patient and based on previous records. Cardiac Medical History: Reports: Congestive Heart Failure, Coronary Artery Disease, Myocardial Infarction, Hypertension Denies: DVT, Hyperlipidema, Pulmonary Embolism Pulmonary Medical History: Reports: Asthma, Bronchitis, Chronic Obstructive Pulmonary Disease (COPD) - 2 L nasal home oxygen, Pneumonia, Respiratory Failure - Chronic respiratory failure Denies: Sleep Apnea, Tuberculosis Endocrine Medical History: Reports: Diabetes Mellitus Type 2, Hypothyroidism Malignancy Medical History: Reports: Brain Cancer - Lung cancer with brain metastases, 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 GI Medical History: Reports: Gastroesophageal Reflux Disease Denies: Cirrhosis, Hepatitis Musculoskeltal Medical History: Reports: Arthritis Psychiatric Medical History: Reports: Dementia, Depression Denies: Bipolar Disorder Hematology: Reports: Anemia, Bleeding Tendencies Infectious Medical History: Reports: Clostridium Difficile Past Surgical History Past Surgical History: Reports: Cholecystectomy, Orthopedic Surgery - Foot surgery, Other - cataract bilateral Social History Lives with: Alone Smoking Status: Former Smoker - QUIT x 15 YRS. Cigarettes Packs Per Day: 2 - 2 packs a day for 20 years. She quit 20 years ago. Frequency of Alcohol Use: None Hx Recreational Drug Use: No Drugs: None Hx Prescription Drug Abuse: No - Advance Directive Resuscitation Status: Full Code Family History Family History: COPD, Malignancy - Lung cancer Parental Family History Reviewed: Yes - Mother: CAD, father: CAD, brother: DM2. Children Family History Reviewed: No Sibling(s) Family History Reviewed.: Yes Medication/Allergy Home Medications: Furosemide [Lasix 20 mg Tablet] 20 mg PO BID 10/09/17 Levothyroxine Sodium [Synthroid 0.088 mg Tablet] 0.088 mg PO Q6AM 10/09/17 Lisinopril [Prinivil 5 mg Tablet] 5 mg PO DAILY 10/09/17 Metformin HCl [Metformin HCl ER] 500 mg PO WSUPPER 10/09/17 Pantoprazole Sodium [Protonix] 40 mg PO DAILY 10/09/17 Tiotropium Meridian [Spiriva Handihaler 5 Cap/Kit (18 Mcg/Cap)] 1 puff IH DAILY 10/09/17 Amlodipine Besylate [Norvasc 10 mg Tablet] 10 mg PO DAILY 30 Days #30 tablet Levalbuterol HCl [Xopenex Neb 1.25 mg/3 ml Ampul] 1.25 mg NEB RTQ4HP PRN 30 Days #120 vial.neb 10/16/17 Nystatin [Mycostatin Topical Powder 15 gm] 1 applic TP QID 14 Days #1 bottle Prednisone [Deltasone 20 mg Tablet] 20 mg PO BID 28 Days #30 tablet 10/16/17 Allergies/Adverse Reactions: azithromycin Allergy (Verified 08/31/17 02:36) amoxicillin [Amoxicillin] Adverse Reaction (Verified 07/26/17 11:39) visual hallucinations erythromycin base [Erythromycin Base] Adverse Reaction (Verified 07/26/17 11:39) visual hallucinations Potassium Clavulanate * [From Augmentin] Adverse Reaction (Verified 07/26/17 11: 39) visual hallucinations Review of Systems ROS unobtainable: Other - Pertinent positives and negatives as detailed in the HPI. Physical Exam Vital Signs: Temp Pulse Resp BP Pulse Ox 98.1 F 19 89/57 L 99 10/18/17 17:43 10/18/17 19:15 10/18/17 19:15 10/18/17 19:15 Intake & Output 10/17/17 10/18/17 10/19/17 06:59 06:59 06:59 Weight 81.8 kg General appearance: PRESENT: no acute distress, well-developed Head exam: PRESENT: atraumatic, normocephalic Eye exam: PRESENT: conjunctiva pink, PERRLA. ABSENT: scleral icterus Mouth exam: PRESENT: moist, neck supple Neck exam: PRESENT: full ROM. ABSENT: JVD Respiratory exam: PRESENT: decreased breath sounds. ABSENT: rales, rhonchi, wheezes Cardiovascular exam: PRESENT: RRR, +S1, +S2 Pulses: PRESENT: normal dorsalis pedis pul GI/Abdominal exam: PRESENT: normal bowel sounds, soft. ABSENT: distended, rebound, tenderness Rectal exam: PRESENT: deferred Extremities exam: ABSENT: pedal edema Musculoskeletal exam: PRESENT: other - limited range of motion right ankle since pain. Neurological exam: PRESENT: alert, altered, motor sensory deficit - grossly. Skin exam: PRESENT: dry, intact, warm. ABSENT: erythema, rash Results Laboratory Results: 10/18/17 17:40 10/18/17 17:40 10/18/17 10/18/17 10/18/17 16:49 17:40 17:40 WBC 11.0 H RBC 3.28 L Hgb 10.5 L Hct 31.6 L MCV 96 MCH 32.1 MCHC 33.3 RDW 17.8 H Plt Count 235 Seg Neutrophils % Not Reportable Lymphocytes % Not Reportable Monocytes % Not Reportable Eosinophils % Not Reportable Basophils % Not Reportable Absolute Neutrophils Not Reportable Absolute Lymphocytes Not Reportable Absolute Monocytes Not Reportable Absolute Eosinophils Not Reportable Absolute Basophils Not Reportable Sodium 140.8 Potassium 3.3 L Chloride 100 Carbon Dioxide 36 H Anion Gap 5 BUN 39 H Creatinine 0.75 Est GFR ( Amer) > 60 Est GFR (Non-Af Amer) > 60 Glucose 121 H Calcium 8.9 Total Bilirubin 0.3 AST 18 ALT 30 Alkaline Phosphatase 66 Total Protein 5.2 L Albumin 3.1 L Stool Occult Blood Blood Type O POSITIVE Antibody Screen NEGATIVE 10/18/17 18:10 WBC RBC Hgb Hct MCV MCH MCHC RDW Plt Count Seg Neutrophils % Lymphocytes % Monocytes % Eosinophils % Basophils % Absolute Neutrophils Absolute Lymphocytes Absolute Monocytes Absolute Eosinophils Absolute Basophils Sodium Potassium Chloride Carbon Dioxide Anion Gap BUN Creatinine Est GFR ( Amer) Est GFR (Non-Af Amer) Glucose Calcium Total Bilirubin AST ALT Alkaline Phosphatase Total Protein Albumin Stool Occult Blood NEGATIVE Blood Type Antibody Screen 10/18/17 10/18/17 17:40 17:40 Creatine Kinase < 20 L CK-MB (CK-2) 0.71 Troponin I 0.030 EKG Comments: Twelve-lead EKG, sinus rhythm, ventricular rate 95, axis 0, QTC prolongation, right bundle branch block, no acute changes. Similar when compared to a previous twelve-lead EKG done on 10/15/2017. Impressions: Chest X-Ray 10/18/17 19:11 IMPRESSION: There is no acute cardiopulmonary disease. No interval change. Assessment & Plan - Diagnosis (1) Hypotension Qualifiers: Hypotension type: unspecified hypotension type Qualified Code(s): I95.9 - Hypotension, unspecified Is this a current diagnosis for this admission?: Yes Plan: Unclear etiology at this time, possibly secondary to medications. She is Hemoccult negative and her hemoglobin has been stable since her last admission. Will continue to cycle cardiac enzymes and check an echocardiogram. (Her twelve-lead EKG showed an old right bundle branch block). Her chest x-ray does not show any acute findings and her UA is still pending. We will continue gentle IV hydration and monitor for any GI bleed. (2) CHF (congestive heart failure) Qualifiers: Heart failure type: unspecified Heart failure chronicity: chronic Qualified Code(s): I50.9 - Heart failure, unspecified Is this a current diagnosis for this admission?: No Plan: Holding her Lasix for now. Will follow-up cardiac enzymes and echocardiogram and adjust her medications as indicated. (3) Chronic respiratory failure Qualifiers: Respiratory failure complication: unspecified whether with hypoxia or hypercapnia Qualified Code(s): J96.10 - Chronic respiratory failure, unspecified whether with hypoxia or hypercapnia Is this a current diagnosis for this admission?: No Plan: /COPD on 2 L home oxygen, stable. CXR reviewed. Will resume her Spiriva and Advair and monitor. (4) Right foot pain Is this a current diagnosis for this admission?: Yes Plan: post recent fall per patient. Will check an x-ray of her right foot. (5) Type 2 diabetes mellitus Qualifiers: Diabetes mellitus custodial insulin use: without custodial use Is this a current diagnosis for this admission?: No Plan: The patient is on metformin at home. Will start Humalog sliding scale while hospitalized. (6) Small cell lung cancer Is this a current diagnosis for this admission?: No Plan: With brain metastases, in remission per patient. - Time Time Spent: Greater than 70 Minutes - Inpatient Certification Based on my medical assessment, after consideration of the patient's comorbidities, presenting symptoms, or acuity I expect that the services needed warrant INPATIENT care.: Yes I certify that my determination is in accordance with my understanding of Medicare's requirements for reasonable and necessary INPATIENT services [42 CFR 412.3e].: Yes
[2017-10-19] MEDS: ACETAMINOPHEN 325 MG TABLET PO PRN (04:00)
[2017-10-19] MEDS ORDERED: POTASSIUM CHLORIDE 10 MEQ TABLET.SA PO ONE (04:00)
[2017-10-19 04:42] LABS: HEMATOCRIT 27.6 % (36.0-47.0); HEMOGLOBIN 9.4 g/dL (12.0-15.5); MEAN CORPUSCULAR HEMOGLOBIN 32.6 pg (27.0-33.4); MEAN CORPUSCULAR HGB CONC 34.1 g/dL (32.0-36.0); MEAN CORPUSCULAR VOLUME 96 fl (80-97); PLATELET COUNT 199 10^3/uL (150-450); RED BLOOD COUNT 2.88 10^6/uL (3.72-5.28); RED CELL DISTRIBUTION WIDTH 17.5 % (11.5-14.0); WHITE BLOOD COUNT 8.3 10^3/uL (4.0-10.5)
[2017-10-19 05:02] LABS: ANION GAP 7 (5-19); BLOOD UREA NITROGEN 29 mg/dL (7-20); CALCIUM 8.2 mg/dL (8.4-10.2); CARBON DIOXIDE 31 mmol/L (22-30); CHLORIDE 105 mmol/L (98-107); GLUCOSE 99 mg/dL (75-110); SODIUM 142.6 mmol/L (137-145)
[2017-10-19] MEDS: LEVOTHYROXINE SODIUM 0.088 MG TABLET PO SCH (05:47)
[2017-10-19] MEDS: LANSOPRAZOLE 30 MG TAB.RAP.DR PO SCH (05:47)
[2017-10-19] MEDS: NORMAL SALINE 1000 ML 1,000 ML IV PRN (11:48)
[2017-10-19] MEDS: FLUTICASONE/SALMETEROL DISKUS 250-50 MCG/DOSE IH SCH ×2 (11:49→23:12)
[2017-10-19] MEDS: TIOTROPIUM BROMIDE DPI 5 CAP/KIT (18 MCG/CAP) IH SCH (11:50)
[2017-10-19 13:35] LABS: BLOOD UREA NITROGEN 22 mg/dL (7-20); CALCIUM 7.9 mg/dL (8.4-10.2); CARBON DIOXIDE 33 mmol/L (22-30); CHLORIDE 109 mmol/L (98-107); GLUCOSE 97 mg/dL (75-110); POTASSIUM 3.6 mmol/L (3.6-5.0)
[2017-10-19 13:40] LABS: SODIUM 142.3 mmol/L (137-145)
[2017-10-19 13:42] LABS: ANION GAP 0 (5-19)
--- NOTE | 2017-10-19 16:19 | PDOC PROGRESS REPORT ---
Subjective Progress Note for:: 10/19/17 Subjective:: TRENTON MCCOY is a 72 year old female who is well known to the hospitalist service. The patient was sent to the emergency department from her primary care physician's office for suspected GI bleed and HYPOtension. While in the emergency department, the patient also complained of R foot pain. The patient was seen this morning on rounds. Her only complaint was that she was tired - denied dizziness, SOB, abdominal pain or diarrhea. Reason For Visit: HYPOTENSION Physical Exam Vital Signs: Temp Pulse Resp BP Pulse Ox 99.2 F 96 18 90/51 L 100 10/19/17 11:31 10/19/17 11:31 10/19/17 11:31 10/19/17 11:31 10/19/17 11:31 Intake & Output 10/18/17 10/19/17 10/20/17 06:59 06:59 06:59 Intake Total 725 Balance 725 General appearance: PRESENT: no acute distress Head exam: PRESENT: atraumatic Eye exam: PRESENT: conjunctiva pink, PERRLA Mouth exam: PRESENT: moist Neck exam: PRESENT: full ROM Respiratory exam: PRESENT: clear to auscultation jeff, symmetrical, unlabored Cardiovascular exam: PRESENT: +S1, +S2 Pulses: PRESENT: normal radial pulses, normal dorsalis pedis pul GI/Abdominal exam: PRESENT: normal bowel sounds, soft Rectal exam: PRESENT: deferred Extremities exam: PRESENT: full ROM Musculoskeletal exam: PRESENT: full ROM Neurological exam: PRESENT: alert, awake, oriented to person, oriented to place , oriented to time, oriented to situation Psychiatric exam: PRESENT: appropriate affect Skin exam: PRESENT: dry, normal color Results Laboratory Results: 10/19/17 04:13 10/19/17 12:25 10/19/17 10/19/17 10/19/17 04:13 04:13 12:25 WBC 8.3 RBC 2.88 L Hgb 9.4 L Hct 27.6 L MCV 96 MCH 32.6 MCHC 34.1 RDW 17.5 H Plt Count 199 Sodium 142.6 142.3 Potassium 3.0 L* 3.6 Chloride 105 109 H Carbon Dioxide 31 H 33 H Anion Gap 7 0 L BUN 29 H 22 H Creatinine 0.67 0.74 Est GFR ( Amer) > 60 > 60 Est GFR (Non-Af Amer) > 60 > 60 Glucose 99 97 Calcium 8.2 L 7.9 L Magnesium 1.7 10/19/17 10/19/17 04:13 10:29 Troponin I 0.032 0.026 Impressions: Foot X-Ray 10/18/17 00:00 IMPRESSION: Cannot exclude fracture of the 4th proximal phalanx. Chest X-Ray 10/18/17 19:11 IMPRESSION: There is no acute cardiopulmonary disease. No interval change. Status: Imported from PACS Assessment & Plan - Diagnosis (1) Hypotension Qualifiers: Hypotension type: unspecified hypotension type Qualified Code(s): I95.9 - Hypotension, unspecified Is this a current diagnosis for this admission?: Yes Plan: Unclear etiology. At this time, do not suspect GI bleed given stable Hgb/Hct and negative hemoccult. Serial cardiac enzymes downtrending, no longer following. Echocardiogram pending. ECHO from 07/2017 shows LVEF 60%, mild tricuspid regurgitation, mild pulmonary HYPERtension Chest xray shows no acute findings. EKG shows old RBBB, no evidence of acute infarction or ischemia UA pending. (2) Right foot pain Is this a current diagnosis for this admission?: Yes Plan: Patient states she has R foot pain. Xray of R foot inconclusive for fracture of 4th proximal phalanx Pain management with PRN tylenol. Patient can wear orthopedic boot for comfort (3) Small cell lung cancer Is this a current diagnosis for this admission?: Yes Plan: With brain metastasis, in remission per patient. (4) CHF (congestive heart failure) Qualifiers: Heart failure type: unspecified Heart failure chronicity: chronic Qualified Code(s): I50.9 - Heart failure, unspecified Is this a current diagnosis for this admission?: No Plan: Hold Lasix for now. Cardiac enzymes negative, no longer trending. Echocardiogram pending to assess for possible cause of hypotension. Will resume home medications (5) Chronic respiratory failure Qualifiers: Respiratory failure complication: unspecified whether with hypoxia or hypercapnia Qualified Code(s): J96.10 - Chronic respiratory failure, unspecified whether with hypoxia or hypercapnia Is this a current diagnosis for this admission?: No Plan: Chronic COPD on 2 L home oxygen. No respiratory complaints. Chest x-ray benign. continue home dose Spiriva and Advair. - Time Time Spent with patient: 15-24 minutes Medications reviewed and adjusted accordingly: Yes Anticipated discharge: Home Within: within 48 hours - Inpatient Certification Based on my medical assessment, after consideration of the patient's comorbidities, presenting symptoms, or acuity I expect that the services needed warrant INPATIENT care.: Yes I certify that my determination is in accordance with my understanding of Medicare's requirements for reasonable and necessary INPATIENT services [42 CFR 412.3e].: Yes Medical Necessity: Risk of Complication if Not Cared For in Hospital - Plan Summary Plan Summary: Ultimately, the plan is to discharge the patient home
[2017-10-19] MEDS ORDERED: ALBUTEROL SULFATE HFA (90 MCG/PUFF) 200 PUFF/8.5 GM MDI IH PRN (16:20)
--- NOTE | 2017-10-19 20:00 | XCELERA REPORT ---
[address] [address] Transthoracic Echocardiogram Report Name: TRENTON MCCOY Age: 72 yrs Gender: Female : 1945 Patient Status: Inpatient Patient Location: [address] [place] [address] Study Date: 10/19/2017 01:48 PM Height: 66 in Weight: 180 lb BSA: 1.9 m2 Procedure: A complete two-dimensional transthoracic echocardiogram was performed (2D, M-mode, spectral and color flow Doppler). The study was technically difficult with many images being suboptimal in quality. Images from the parasternal window were difficult to obtain and are suboptimal in quality. Reason For Study: hypotension Ordering Physician: HOWIE MCKNIGHT Performed By: Maru Johnson Interpretation Summary The left ventricular ejection fraction is preserved. Consider additional methods to assess LVEF such as MUGA scan, CTA heart, cardiac MRI, DANELLE, etc. if clinically indicated. The left ventricle is grossly normal size. Doppler measurements suggest pseudonormalized left ventricular relaxation, which is associated with grade II/IV or mild to moderate diastolic dysfunction Regional wall motion abnormalities cannot be excluded due to limited visualization. The right ventricle is mildly dilated. The right ventricular systolic function is normal. The right atrium is mildly dilated. The left atrial size is normal. There is a mild amount of mitral regurgitation There is no mitral valve stenosis. There is no aortic valve stenosis No aortic regurgitation is present. There is a trace amount of tricuspid regurgitation Tricuspid regurgitation jet envelope not well defined to measure RV systolic pressure accurately. There is no tricuspid stenosis. The aortic root is not well visualized. The inferior vena cava appeared normal and decreased > 50% with respiration (RAP 5-10 mmHg) There is no pericardial effusion. Doppler Measurements & Calculations MV E max mellisa: MV dec slope: Ao V2 max: LV V1 max P.5 cm/sec 164.4 cm/sec 4.2 mmHg MV A max mellisa: 789.2 cm/sec2 Ao max PG: LV V1 max: 152.1 cm/sec MV dec time: 10.8 mmHg 102.2 cm/sec MV E/A: 0.75 0.15 sec PA V2 max: TR max mellisa: 90.8 cm/sec 248.8 cm/sec PA max P.3 mmHgTR max P.8 mmHg Left Ventricle The left ventricle is grossly normal size. The left ventricular ejection fraction is preserved. Consider additional methods to assess LVEF such as MUGA scan, CTA heart, cardiac MRI, DANELLE, etc. if clinically indicated. Doppler measurements suggest pseudonormalized left ventricular relaxation, which is associated with grade II/IV or mild to moderate diastolic dysfunction. Regional wall motion abnormalities cannot be excluded due to limited visualization. Right Ventricle The right ventricle is mildly dilated. The right ventricular systolic function is normal. Atria The right atrium is mildly dilated. The left atrial size is normal. Interarterial septum not well visualized and not well dopplered. Cannot comment on ASD/PFO presence. Mitral Valve The mitral valve leaflets are sclerotic, but show no functional abnormalities. There is no mitral valve stenosis. There is a mild amount of mitral regurgitation. Aortic Valve The aortic valve is not well visualized secondary to technical limitations. There is no aortic valve stenosis. No aortic regurgitation is present. Tricuspid Valve The tricuspid valve is not well visualized, but is grossly normal. There is no tricuspid stenosis. There is a trace amount of tricuspid regurgitation. Tricuspid regurgitation jet envelope not well defined to measure RV systolic pressure accurately. Pulmonic Valve The pulmonic valve is not well visualized. Great Vessels The aortic root is not well visualized. The inferior vena cava appeared normal and decreased > 50% with respiration (RAP 5-10 mmHg). Effusions There is no pericardial effusion. : HOWIE MCKNIGHT > Mercedes Solomon
[2017-10-19] MEDS: ALBUTEROL SULFATE 0.083% NEB 2.5 MG/3 ML AMPUL NEB PRN (21:04)
[2017-10-19] MEDS: SALMETEROL XINAFOATE DISKUS 50 MCG/1 DOSE 28 DOSE IH SCH (23:12)
[2017-10-20] MEDS: LEVOTHYROXINE SODIUM 0.088 MG TABLET PO SCH (05:44)
[2017-10-20] MEDS: LANSOPRAZOLE 30 MG TAB.RAP.DR PO SCH (05:44)
[2017-10-20] MEDS ORDERED: LEVOTHYROXINE SODIUM 0.088 MG TABLET PO SCH (06:00)
[2017-10-20 07:57] LABS: BASOPHILS % (AUTO) 0.3 % (0-2); EOSINOPHILS % (AUTO) 1.3 % (0-6); HEMATOCRIT 25.1 % (36.0-47.0); HEMOGLOBIN 8.4 g/dL (12.0-15.5); LYMPHOCYTES % (AUTO) 7.7 % (13-45); MEAN CORPUSCULAR HEMOGLOBIN 32.5 pg (27.0-33.4); MEAN CORPUSCULAR HGB CONC 33.5 g/dL (32.0-36.0); MEAN CORPUSCULAR VOLUME 97 fl (80-97); MONOCYTES % (AUTO) 9.6 % (3-13); PLATELET COUNT 170 10^3/uL (150-450); RED BLOOD COUNT 2.59 10^6/uL (3.72-5.28); RED CELL DISTRIBUTION WIDTH 17.4 % (11.5-14.0); SEGMENTED NEUTROPHILS % (AUTO) 81.1 % (42-78)
[2017-10-20 07:58] LABS: ABSOLUTE EOSINOPHILS # (AUTO) 0.1 10^3/uL (0.0-0.6); ABSOLUTE LYMPHOCYTES (AUTO) 0.6 10^3/uL (0.5-4.7); ABSOLUTE MONOCYTES (AUTO) 0.8 10^3/uL (0.1-1.4); ABSOLUTE NEUT (AUTO) 6.5 10^3/uL (1.7-8.2); TOTAL CELLS COUNTED % (AUTO) 100 %
[2017-10-20 08:17] LABS: CALCIUM 8.2 mg/dL (8.4-10.2); GLUCOSE 87 mg/dL (75-110); POTASSIUM 3.5 mmol/L (3.6-5.0)
[2017-10-20 08:18] LABS: BLOOD UREA NITROGEN 16 mg/dL (7-20)
[2017-10-20 08:23] LABS: CARBON DIOXIDE 32 mmol/L (22-30); CHLORIDE 110 mmol/L (98-107); SODIUM 143.2 mmol/L (137-145)
[2017-10-20 08:26] LABS: ANION GAP 1 (5-19)
[2017-10-20] MEDS: NORMAL SALINE 1000 ML 1,000 ML IV PRN ×2 (09:56→23:18)
[2017-10-20] MEDS: SALMETEROL XINAFOATE DISKUS 50 MCG/1 DOSE 28 DOSE IH SCH ×2 (09:57→22:29)
[2017-10-20] MEDS: TIOTROPIUM BROMIDE DPI 5 CAP/KIT (18 MCG/CAP) IH SCH (09:57)
[2017-10-20] MEDS: FLUTICASONE/SALMETEROL DISKUS 250-50 MCG/DOSE IH SCH ×2 (09:57→22:36)
[2017-10-20] MEDS ORDERED: TIOTROPIUM BROMIDE DPI 5 CAP/KIT (18 MCG/CAP) IH SCH (10:00)
--- NOTE | 2017-10-20 15:58 | PDOC PROGRESS REPORT ---
Subjective Progress Note for:: 10/20/17 Subjective:: TRENTON MCCOY is a 72 year old female who is well known to the hospitalist service. The patient was sent to the emergency department from her primary care physician's office for suspected GI bleed and HYPOtension. While in the emergency department, the patient also complained of R foot pain. The patient was seen this morning on rounds, she has no complaints. According to nursing staff, the patient has had multiple episodes of watery foul-smelling diarrhea this morning. Stool samples were sent to the lab and the patient is + for C. difficile. Reason For Visit: HYPOTENSION Physical Exam Vital Signs: Temp Pulse Resp BP Pulse Ox 98.1 F 101 H 20 97/77 L 100 10/20/17 12:03 10/20/17 12:03 10/20/17 12:03 10/20/17 12:03 10/20/17 12:03 Intake & Output 10/19/17 10/20/17 10/21/17 06:59 06:59 06:59 Intake Total 725 1409 Balance 725 1409 General appearance: PRESENT: no acute distress Head exam: PRESENT: atraumatic Eye exam: PRESENT: conjunctiva pink Mouth exam: PRESENT: moist Neck exam: PRESENT: full ROM Respiratory exam: PRESENT: clear to auscultation jeff, symmetrical, unlabored Cardiovascular exam: PRESENT: +S1, +S2 Pulses: PRESENT: normal radial pulses, +1 pedal pulses bilateral Vascular exam: PRESENT: normal capillary refill GI/Abdominal exam: PRESENT: normal bowel sounds, soft Rectal exam: PRESENT: deferred Musculoskeletal exam: PRESENT: full ROM Neurological exam: PRESENT: alert, awake, oriented to person, oriented to place , oriented to time, oriented to situation Psychiatric exam: PRESENT: appropriate affect Skin exam: PRESENT: dry, normal color, warm Results Laboratory Results: 10/20/17 07:09 10/20/17 07:09 10/20/17 10/20/17 10/20/17 07:09 07:09 07:09 WBC 8.0 RBC 2.59 L Hgb 8.4 L Hct 25.1 L MCV 97 MCH 32.5 MCHC 33.5 RDW 17.4 H Plt Count 170 Seg Neutrophils % 81.1 H Lymphocytes % 7.7 L Monocytes % 9.6 Eosinophils % 1.3 Basophils % 0.3 Absolute Neutrophils 6.5 Absolute Lymphocytes 0.6 Absolute Monocytes 0.8 Absolute Eosinophils 0.1 Absolute Basophils 0.0 Sodium 143.2 Potassium 3.5 L Chloride 110 H Carbon Dioxide 32 H Anion Gap 1 L BUN 16 Creatinine 0.63 Est GFR ( Amer) > 60 Est GFR (Non-Af Amer) > 60 Glucose 87 Calcium 8.2 L Phosphorus 1.9 L Magnesium 1.8 10/19/17 10/19/17 04:13 10:29 Troponin I 0.032 0.026 Impressions: Foot X-Ray 10/18/17 00:00 IMPRESSION: Cannot exclude fracture of the 4th proximal phalanx. Chest X-Ray 10/18/17 19:11 IMPRESSION: There is no acute cardiopulmonary disease. No interval change. Status: Imported from PACS Assessment & Plan - Diagnosis (1) C. difficile diarrhea Is this a current diagnosis for this admission?: Yes Plan: Nursing staff reports the patient has been experiencing frequent episodes of watery diarrhea, roughly once an hour. Stool sample positive for C. difficile Initiate vancomycin 125 mg by mouth every 6 hours for 10 days. Continue IV fluids at 75 ML's per hour Monitor for fever and leukocytosis, currently patient is afebrile and her WBC is within normal limits (2) Hypotension Qualifiers: Hypotension type: unspecified hypotension type Qualified Code(s): I95.9 - Hypotension, unspecified Is this a current diagnosis for this admission?: Yes Plan: Likely due to volume depletion secondary to C. difficile colitis. At this time, do not suspect GI bleed given stable Hgb/Hct and negative hemoccult. Serial cardiac enzymes downtrending, no longer following. Echocardiogram normal, could not assess LVEF. ECHO from 07/2017 shows LVEF 60%, mild tricuspid regurgitation, mild pulmonary HYPERtension Chest xray shows no acute findings. EKG shows old RBBB, no evidence of acute infarction or ischemia (3) Right foot pain Is this a current diagnosis for this admission?: Yes Plan: Patient states she has R foot pain. Xray of R foot inconclusive for fracture of 4th proximal phalanx Pain management with PRN tylenol. 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 (5) CHF (congestive heart failure) Qualifiers: Heart failure type: unspecified Heart failure chronicity: chronic Qualified Code(s): I50.9 - Heart failure, unspecified Is this a current diagnosis for this admission?: No Plan: Hold Lasix for now. Cardiac enzymes negative, no longer trending. Echocardiogram pending to assess for possible cause of hypotension. Will resume home medications (6) Chronic respiratory failure Qualifiers: Respiratory failure complication: unspecified whether with hypoxia or hypercapnia Qualified Code(s): J96.10 - Chronic respiratory failure, unspecified whether with hypoxia or hypercapnia Is this a current diagnosis for this admission?: No Plan: Chronic COPD on 2 L home oxygen. No respiratory complaints. Chest x-ray benign. continue home dose Spiriva and Advair. - Time Time Spent with patient: 15-24 minutes Medications reviewed and adjusted accordingly: Yes Anticipated discharge: Home - Inpatient Certification Based on my medical assessment, after consideration of the patient's comorbidities, presenting symptoms, or acuity I expect that the services needed warrant INPATIENT care.: Yes I certify that my determination is in accordance with my understanding of Medicare's requirements for reasonable and necessary INPATIENT services [42 CFR 412.3e].: Yes Medical Necessity: Need For IV Fluids, Risk of Complication if Not Cared For in Hospital - Plan Summary Plan Summary: The plan is to treat the patient with vancomycin for her C. difficile, rehydrate using gentle IV hydration. Currently the patient is having approximately 1 bowel movement an hour, when it slows down to 3 bowel movements per day she will be safe for discharge.
[2017-10-20] MEDS: INSULIN LISPRO 100 UNIT/ML 3 ML VIAL SUBCUT PRN (17:45)
[2017-10-20] MEDS: VANCOMYCIN HCL INJ 500 MG VIAL PO SCH ×2 (17:45→22:29)
[2017-10-21] MEDS: ACETAMINOPHEN 325 MG TABLET PO PRN ×2 (01:32→12:27)
[2017-10-21] MEDS: VANCOMYCIN HCL INJ 500 MG VIAL PO SCH ×4 (04:14→21:04)
[2017-10-21 06:06] LABS: ABSOLUTE EOSINOPHILS # (AUTO) 0.1 10^3/uL (0.0-0.6); ABSOLUTE LYMPHOCYTES (AUTO) 0.7 10^3/uL (0.5-4.7); ABSOLUTE MONOCYTES (AUTO) 0.8 10^3/uL (0.1-1.4); ABSOLUTE NEUT (AUTO) 5.9 10^3/uL (1.7-8.2); BASOPHILS % (AUTO) 0.1 % (0-2); EOSINOPHILS % (AUTO) 1.1 % (0-6); HEMATOCRIT 23.8 % (36.0-47.0); LYMPHOCYTES % (AUTO) 8.9 % (13-45); MEAN CORPUSCULAR HEMOGLOBIN 32.6 pg (27.0-33.4); MEAN CORPUSCULAR HGB CONC 33.6 g/dL (32.0-36.0); MEAN CORPUSCULAR VOLUME 97 fl (80-97); MONOCYTES % (AUTO) 10.3 % (3-13); PLATELET COUNT 149 10^3/uL (150-450); RED BLOOD COUNT 2.46 10^6/uL (3.72-5.28); RED CELL DISTRIBUTION WIDTH 17.4 % (11.5-14.0); SEGMENTED NEUTROPHILS % (AUTO) 79.6 % (42-78); TOTAL CELLS COUNTED % (AUTO) 100 %; WHITE BLOOD COUNT 7.4 10^3/uL (4.0-10.5)
[2017-10-21] MEDS: LEVOTHYROXINE SODIUM 0.088 MG TABLET PO SCH (06:18)
[2017-10-21] MEDS: LANSOPRAZOLE 30 MG TAB.RAP.DR PO SCH (06:18)
[2017-10-21 06:20] LABS: BLOOD UREA NITROGEN 12 mg/dL (7-20); CALCIUM 8.2 mg/dL (8.4-10.2); GLUCOSE 95 mg/dL (75-110); PHOSPHORUS 2.6 mg/dL (2.5-4.5); POTASSIUM 3.4 mmol/L (3.6-5.0)
[2017-10-21 06:25] LABS: CARBON DIOXIDE 30 mmol/L (22-30); CHLORIDE 110 mmol/L (98-107)
[2017-10-21 06:30] LABS: ANION GAP 4 (5-19)
[2017-10-21] MEDS ORDERED: MAGNESIUM SULFATE/D5W 1 GM/100 ML RTUPB IV ONE (07:18)
[2017-10-21] MEDS ORDERED: POTASSIUM CHLORIDE 10 MEQ TABLET.SA PO ONE (07:18)
[2017-10-21] MEDS: TIOTROPIUM BROMIDE DPI 5 CAP/KIT (18 MCG/CAP) IH SCH (10:07)
[2017-10-21] MEDS: FLUTICASONE/SALMETEROL DISKUS 250-50 MCG/DOSE IH SCH ×2 (10:07→21:04)
[2017-10-21] MEDS: SALMETEROL XINAFOATE DISKUS 50 MCG/1 DOSE 28 DOSE IH SCH ×2 (10:08→21:04)
[2017-10-21] MEDS: ALBUTEROL SULFATE 0.083% NEB 2.5 MG/3 ML AMPUL NEB PRN ×2 (11:44→20:22)
[2017-10-21] MEDS: INSULIN LISPRO 100 UNIT/ML 3 ML VIAL SUBCUT PRN ×2 (12:28→21:12)
--- NOTE | 2017-10-21 16:00 | PDOC PROGRESS REPORT ---
Subjective Progress Note for:: 10/21/17 Subjective:: TRENTON MCCOY is a 72 year old female who is well known to the hospitalist service. The patient was sent to the emergency department from her primary care physician's office for suspected GI bleed and HYPOtension. While in the emergency department, the patient also complained of R foot pain. The patient was seen this morning on rounds, she has no complaints. According to nursing staff, the patient has been experiencing 3-4 episodes of watery diarrhea per shift. +C. difficile. Reason For Visit: HYPOTENSION Physical Exam Vital Signs: Temp Pulse Resp BP Pulse Ox 97.4 F 109 H 20 104/55 L 100 10/21/17 12:00 10/21/17 12:00 10/21/17 12:00 10/21/17 12:00 10/21/17 12:00 Intake & Output 10/20/17 10/21/17 10/22/17 06:59 06:59 06:59 Intake Total 1409 2121 Balance 1409 2121 General appearance: PRESENT: no acute distress Head exam: PRESENT: atraumatic Eye exam: PRESENT: conjunctiva pink Mouth exam: PRESENT: moist Neck exam: PRESENT: full ROM Respiratory exam: PRESENT: clear to auscultation jeff, symmetrical, unlabored Cardiovascular exam: PRESENT: +S1, +S2 Pulses: PRESENT: normal radial pulses, normal dorsalis pedis pul Vascular exam: PRESENT: normal capillary refill GI/Abdominal exam: PRESENT: normal bowel sounds, soft Rectal exam: PRESENT: deferred Extremities exam: PRESENT: full ROM Musculoskeletal exam: PRESENT: ambulatory - with assistance, full ROM Neurological exam: PRESENT: alert, awake, oriented to person, oriented to place , oriented to time, oriented to situation Psychiatric exam: PRESENT: appropriate affect Skin exam: PRESENT: normal color Results Laboratory Results: 10/21/17 05:34 10/21/17 05:34 10/21/17 10/21/17 05:34 05:34 WBC 7.4 RBC 2.46 L Hgb 8.0 L Hct 23.8 L MCV 97 MCH 32.6 MCHC 33.6 RDW 17.4 H Plt Count 149 L Seg Neutrophils % 79.6 H Lymphocytes % 8.9 L Monocytes % 10.3 Eosinophils % 1.1 Basophils % 0.1 Absolute Neutrophils 5.9 Absolute Lymphocytes 0.7 Absolute Monocytes 0.8 Absolute Eosinophils 0.1 Absolute Basophils 0.0 Sodium 144.0 Potassium 3.4 L Chloride 110 H Carbon Dioxide 30 Anion Gap 4 L BUN 12 Creatinine 0.56 Est GFR ( Amer) > 60 Est GFR (Non-Af Amer) > 60 Glucose 95 Calcium 8.2 L Phosphorus 2.6 Magnesium 1.8 10/19/17 10/19/17 04:13 10:29 Troponin I 0.032 0.026 Impressions: Foot X-Ray 10/18/17 00:00 IMPRESSION: Cannot exclude fracture of the 4th proximal phalanx. Chest X-Ray 10/18/17 19:11 IMPRESSION: There is no acute cardiopulmonary disease. No interval change. Status: Imported from PACS Assessment & Plan - Diagnosis (1) C. difficile diarrhea Is this a current diagnosis for this admission?: Yes Plan: Nursing staff reports the patient has been experiencing frequent episodes of watery diarrhea, roughly 4 times per shift. Stool sample positive for C. difficile Initiate vancomycin 125 mg by mouth every 6 hours for 10 days. Continue IV fluids at 75 ML's per hour Monitor for fever and leukocytosis, currently patient is afebrile and her WBC is within normal limits (2) Hypotension Qualifiers: Hypotension type: unspecified hypotension type Qualified Code(s): I95.9 - Hypotension, unspecified Is this a current diagnosis for this admission?: Yes Plan: Resolved. Likely due to volume depletion secondary to C. difficile colitis. At this time, do not suspect GI bleed given stable Hgb/Hct and negative hemoccult. Serial cardiac enzymes downtrending, no longer following. Echocardiogram normal, could not assess LVEF. ECHO from 07/2017 shows LVEF 60%, mild tricuspid regurgitation, mild pulmonary HYPERtension Chest xray shows no acute findings. EKG shows old RBBB, no evidence of acute infarction or ischemia (3) Right foot pain Is this a current diagnosis for this admission?: Yes Plan: Patient states she has R foot pain. Xray of R foot inconclusive for fracture of 4th proximal phalanx Pain management with PRN tylenol. 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 (5) CHF (congestive heart failure) Qualifiers: Heart failure type: unspecified Heart failure chronicity: chronic Qualified Code(s): I50.9 - Heart failure, unspecified Is this a current diagnosis for this admission?: No Plan: Hold Lasix for now. Cardiac enzymes negative, no longer trending. Echocardiogram pending to assess for possible cause of hypotension. Will resume home medications (6) Chronic respiratory failure Qualifiers: Respiratory failure complication: unspecified whether with hypoxia or hypercapnia Qualified Code(s): J96.10 - Chronic respiratory failure, unspecified whether with hypoxia or hypercapnia Is this a current diagnosis for this admission?: No Plan: Chronic COPD on 2 L home oxygen. No respiratory complaints. Chest x-ray benign. Continue home dose Spiriva and Advair. - Time Time Spent with patient: 15-24 minutes Medications reviewed and adjusted accordingly: Yes Anticipated discharge: Home - Inpatient Certification Based on my medical assessment, after consideration of the patient's comorbidities, presenting symptoms, or acuity I expect that the services needed warrant INPATIENT care.: Yes I certify that my determination is in accordance with my understanding of Medicare's requirements for reasonable and necessary INPATIENT services [42 CFR 412.3e].: Yes Medical Necessity: Risk of Complication if Not Cared For in Hospital - Plan Summary Plan Summary: Discharge to home following antibiotic therapy for c.diff, and once her diarrhea slows down
[2017-10-22] MEDS: VANCOMYCIN HCL INJ 500 MG VIAL PO SCH ×4 (04:37→21:33)
[2017-10-22] MEDS: LEVOTHYROXINE SODIUM 0.088 MG TABLET PO SCH (05:38)
[2017-10-22] MEDS: LANSOPRAZOLE 30 MG TAB.RAP.DR PO SCH (05:38)
[2017-10-22 06:08] LABS: ABSOLUTE EOSINOPHILS # (AUTO) 0.1 10^3/uL (0.0-0.6); ABSOLUTE LYMPHOCYTES (AUTO) 0.6 10^3/uL (0.5-4.7); ABSOLUTE MONOCYTES (AUTO) 0.8 10^3/uL (0.1-1.4); BASOPHILS % (AUTO) 0.5 % (0-2); EOSINOPHILS % (AUTO) 0.9 % (0-6); HEMATOCRIT 22.9 % (36.0-47.0); LYMPHOCYTES % (AUTO) 7.9 % (13-45); MEAN CORPUSCULAR HEMOGLOBIN 32.2 pg (27.0-33.4); MEAN CORPUSCULAR HGB CONC 33.2 g/dL (32.0-36.0); MEAN CORPUSCULAR VOLUME 97 fl (80-97); MONOCYTES % (AUTO) 11.2 % (3-13); PLATELET COUNT 146 10^3/uL (150-450); RED BLOOD COUNT 2.36 10^6/uL (3.72-5.28); RED CELL DISTRIBUTION WIDTH 17.3 % (11.5-14.0); SEGMENTED NEUTROPHILS % (AUTO) 79.5 % (42-78); TOTAL CELLS COUNTED % (AUTO) 100 %; WHITE BLOOD COUNT 7.6 10^3/uL (4.0-10.5)
[2017-10-22 06:15] LABS: HEMOGLOBIN 7.6 g/dL (12.0-15.5)
[2017-10-22 06:34] LABS: BLOOD UREA NITROGEN 9 mg/dL (7-20); CALCIUM 7.9 mg/dL (8.4-10.2); GLUCOSE 86 mg/dL (75-110); PHOSPHORUS 2.2 mg/dL (2.5-4.5); POTASSIUM 3.7 mmol/L (3.6-5.0)
[2017-10-22 06:45] LABS: ANION GAP 3 (5-19); CARBON DIOXIDE 28 mmol/L (22-30); CHLORIDE 111 mmol/L (98-107)
[2017-10-22 06:46] LABS: SODIUM 142.3 mmol/L (137-145)
[2017-10-22] MEDS: ACETAMINOPHEN 325 MG TABLET PO PRN (06:57)
[2017-10-22] MEDS: SALMETEROL XINAFOATE DISKUS 50 MCG/1 DOSE 28 DOSE IH SCH ×2 (09:16→21:30)
[2017-10-22] MEDS: FLUTICASONE/SALMETEROL DISKUS 250-50 MCG/DOSE IH SCH ×2 (09:16→21:30)
[2017-10-22] MEDS: TIOTROPIUM BROMIDE DPI 5 CAP/KIT (18 MCG/CAP) IH SCH (09:16)
[2017-10-22] MEDS ORDERED: DEXTROSE 50%-WATER 25 GM/50 ML DISP.SYRIN IV PRN ×2 (13:36)
[2017-10-22] MEDS ORDERED: DEXTROSE 40% GEL 15 GM TUBE PO PRN ×2 (13:36)
[2017-10-22] MEDS ORDERED: GLUCAGON,HUMAN RECOMB 1 MG INJ SUBCUT PRN (13:36)
--- NOTE | 2017-10-22 14:05 | PDOC PROGRESS REPORT ---
Subjective Progress Note for:: 10/22/17 Subjective:: TRENTON MCCOY is a 72 year old female who is well known to the hospitalist service. The patient was sent to the emergency department from her primary care physician's office for suspected GI bleed and HYPOtension. While in the emergency department, the patient also complained of R foot pain. The patient was seen this morning on rounds, she has no complaints. The patient has still been experiencing multiple episodes of watery diarrhea per shift. +C. difficile. Of note, the patient's Hgb was 7.6 this morning. Nursing staff deny melena or bloody vomitus. Repeat hemoccult POSITIVE. Reason For Visit: HYPOTENSION Physical Exam Vital Signs: Temp Pulse Resp BP Pulse Ox 98.1 F 99 20 121/67 98 10/22/17 11:43 10/22/17 11:43 10/22/17 11:43 10/22/17 11:43 10/22/17 11:43 Intake & Output 10/21/17 10/22/17 10/23/17 06:59 06:59 06:59 Intake Total 2121 1670 Balance 2121 1670 Weight 82.9 kg General appearance: PRESENT: no acute distress Head exam: PRESENT: atraumatic Eye exam: PRESENT: conjunctiva pink Mouth exam: PRESENT: moist Neck exam: PRESENT: full ROM Respiratory exam: PRESENT: clear to auscultation jeff - on 2L supplemental oxygen , symmetrical, unlabored Cardiovascular exam: PRESENT: +S1, +S2 Pulses: PRESENT: normal radial pulses, normal dorsalis pedis pul GI/Abdominal exam: PRESENT: normal bowel sounds, soft. ABSENT: tenderness Rectal exam: PRESENT: deferred Extremities exam: PRESENT: full ROM Musculoskeletal exam: PRESENT: full ROM Neurological exam: PRESENT: alert, awake, oriented to person, oriented to place , oriented to time, oriented to situation Psychiatric exam: PRESENT: appropriate affect Skin exam: PRESENT: normal color Results Laboratory Results: 10/22/17 05:30 10/22/17 05:30 10/22/17 10/22/17 10/22/17 05:30 05:30 09:22 WBC 7.6 RBC 2.36 L Hgb 7.6 L Hct 22.9 L MCV 97 MCH 32.2 MCHC 33.2 RDW 17.3 H Plt Count 146 L Seg Neutrophils % 79.5 H Lymphocytes % 7.9 L Monocytes % 11.2 Eosinophils % 0.9 Basophils % 0.5 Absolute Neutrophils 6.0 Absolute Lymphocytes 0.6 Absolute Monocytes 0.8 Absolute Eosinophils 0.1 Absolute Basophils 0.0 Sodium 142.3 Potassium 3.7 Chloride 111 H Carbon Dioxide 28 Anion Gap 3 L BUN 9 Creatinine 0.59 Est GFR ( Amer) > 60 Est GFR (Non-Af Amer) > 60 Glucose 86 Calcium 7.9 L Phosphorus 2.2 L Magnesium 1.9 Stool Occult Blood POSITIVE 10/19/17 10/19/17 04:13 10:29 Troponin I 0.032 0.026 Impressions: Foot X-Ray 10/18/17 00:00 IMPRESSION: Cannot exclude fracture of the 4th proximal phalanx. Chest X-Ray 10/18/17 19:11 IMPRESSION: There is no acute cardiopulmonary disease. No interval change. Assessment & Plan - Diagnosis (1) C. difficile diarrhea Is this a current diagnosis for this admission?: Yes Plan: Nursing staff reports the patient has been experiencing frequent episodes of watery diarrhea. Stool sample positive for C. difficile Initiate vancomycin 125 mg by mouth every 6 hours for 10 days. Continue IV fluids at 75 ML's per hour Monitor for fever and leukocytosis, currently patient is afebrile and her WBC is within normal limits (2) GI bleed Qualifiers: GI bleed type/associated pathology: gastritis Gastritis type: acute gastritis Qualified Code(s): K29.01 - Acute gastritis with bleeding Is this a current diagnosis for this admission?: Yes Plan: Unclear etiology Hgb dropped from 10.5 -> 7.6 over approx. 4 days Initial hemoccult NEGATIVE (10/18) repeat hemoccult POSITIVE (10/22) Surgery consulted for EGD and colonoscopy Type & screen. Hgb/Hct Q12h (3) Hypotension Qualifiers: Hypotension type: unspecified hypotension type Qualified Code(s): I95.9 - Hypotension, unspecified Is this a current diagnosis for this admission?: Yes Plan: In light of dropping Hgb and repeat POSITIVE hemoccult - there is a possibility that the HYPOtension is related to a GI bleed Could also be due to volume depletion secondary to C. difficile colitis. Serial cardiac enzymes downtrending, no longer following. Echocardiogram normal, could not assess LVEF, mild MR, mild pulmonary HYPERtension Chest xray shows no acute findings. EKG shows old RBBB, no evidence of acute infarction or ischemia (4) Right foot pain Is this a current diagnosis for this admission?: Yes (5) Small cell lung cancer Is this a current diagnosis for this admission?: Yes (6) CHF (congestive heart failure) Qualifiers: Heart failure type: unspecified Heart failure chronicity: chronic Qualified Code(s): I50.9 - Heart failure, unspecified Is this a current diagnosis for this admission?: No Plan: Hold Lasix for now. Cardiac enzymes negative, no longer trending. Echocardiogram pending to assess for possible cause of hypotension. Will resume home medications (7) Chronic respiratory failure Qualifiers: Respiratory failure complication: unspecified whether with hypoxia or hypercapnia Qualified Code(s): J96.10 - Chronic respiratory failure, unspecified whether with hypoxia or hypercapnia Is this a current diagnosis for this admission?: No Plan: Chronic COPD on 2 L home oxygen. No respiratory complaints. Chest x-ray benign. Continue home dose Spiriva and Advair. - Time Time Spent with patient: 15-24 minutes Medications reviewed and adjusted accordingly: Yes Anticipated discharge: Home - Inpatient Certification Based on my medical assessment, after consideration of the patient's comorbidities, presenting symptoms, or acuity I expect that the services needed warrant INPATIENT care.: Yes I certify that my determination is in accordance with my understanding of Medicare's requirements for reasonable and necessary INPATIENT services [42 CFR 412.3e].: Yes Medical Necessity: Risk of Complication if Not Cared For in Hospital - Plan Summary Plan Summary: Plan to consult surgery for non-emergent EGD and colonoscopy. Will transfuse if Hgb drops below 7.0. Barring any complications, plan to discharge the patient home.
[2017-10-22 14:57] LABS: HEMATOCRIT 23.7 % (36.0-47.0); MEAN CORPUSCULAR HEMOGLOBIN 32.4 pg (27.0-33.4); MEAN CORPUSCULAR HGB CONC 33.5 g/dL (32.0-36.0); MEAN CORPUSCULAR VOLUME 97 fl (80-97); PLATELET COUNT 157 10^3/uL (150-450); RED BLOOD COUNT 2.44 10^6/uL (3.72-5.28); RED CELL DISTRIBUTION WIDTH 17.6 % (11.5-14.0); WHITE BLOOD COUNT 6.7 10^3/uL (4.0-10.5)
[2017-10-22 15:12] LABS: HEMOGLOBIN 7.9 g/dL (12.0-15.5)
[2017-10-22] MEDS ORDERED: PEG 3350/NA SULF,BICARB,CL/KCL 4000 ML PO ONE (15:30)
[2017-10-22] MEDS ORDERED: NORMAL SALINE 250 ML IV PRN ×2 (16:16)
[2017-10-22] MEDS: PANTOPRAZOLE SODIUM 40 MG VIAL IV SCH (17:01)
--- NOTE | 2017-10-22 23:10 | PDOC CONSULTATION ---
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 The patient was last hospitalized here from 10/09/2017 to 10/16/2017 with COPD exacerbation. The patient has been complaining of dark stool for the last 3 days and when she followed with her primary physician, she was found to be hypotensive so she was sent to the hospital for further management and treatment. The patient denied any bleeding from any other orifices. She denies use of anticoagulants but she takes ibuprofen 600 mg and one baby aspirin daily. She is also on Protonix 40 mg daily. She has never had gastrointestinal bleed. No history of abdominal pain. No pervious colonoscopy or EGD. No history of bowel cancer in her or her family members to her knowledge. She denies chest pain and she said that she has chronic shortness of breath. Past Medical History Cardiac Medical History: Reports: Congestive Heart Failure, Coronary Artery Disease, Myocardial Infarction, Hypertension Denies: DVT, Hyperlipidema, Pulmonary Embolism Pulmonary Medical History: Reports: Asthma, Bronchitis, Chronic Obstructive Pulmonary Disease (COPD) - 2 L nasal home oxygen, Pneumonia, Respiratory Failure - Chronic respiratory failure Denies: Sleep Apnea, Tuberculosis Neurological Medical History: Denies: Seizures Endocrine Medical History: Reports: Diabetes Mellitus Type 2, Hypothyroidism Denies: Diabetes Mellitus Type 1, Hyperthyroidism Renal/ Medical History: Denies: End Stage Renal Disease Malignancy Medical History: Reports: Brain Cancer - Lung cancer with brain metastases, 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 GI Medical History: Reports: Gastroesophageal Reflux Disease Denies: Cirrhosis, Hepatitis Musculoskeltal Medical History: Reports: Arthritis Psychiatric Medical History: Reports: Dementia, Depression Denies: Bipolar Disorder Hematology: Reports: Anemia, Bleeding Tendencies Infectious Medical History: Reports: Clostridium Difficile Past Surgical History Past Surgical History: Reports: Cholecystectomy, Orthopedic Surgery - Foot surgery, Other - cataract bilateral Social History Lives with: Alone Smoking Status: Former Smoker - QUIT x 15 YRS. Cigarettes Packs Per Day: 2 - 2 packs a day for 20 years. She quit 20 years ago. Last Time Smoked: 12 years Frequency of Alcohol Use: None Hx Recreational Drug Use: No Drugs: None Hx Prescription Drug Abuse: No - Advance Directive Resuscitation Status: Full Code Family History Family History: COPD, Malignancy - Lung cancer Parental Family History Reviewed: Yes Children Family History Reviewed: Yes Sibling(s) Family History Reviewed.: Yes Medication/Allergy Home Medications: Albuterol Sulfate [Proair HFA Inhalation Aerosol 8.5 gm MDI] 2 puff IH Q4HP PRN 10/19/17 Amlodipine Besylate [Norvasc 2.5 mg Tablet] 2.5 mg PO Q12 10/19/17 Furosemide [Lasix] 20 mg PO BID 10/19/17 Levothyroxine Sodium [Synthroid 0.088 mg Tablet] 0.088 mg PO Q6AM 10/19/17 Lisinopril [Zestril] 5 mg PO DAILY 10/19/17 Metformin HCl [Metformin HCl ER] 500 mg PO WSUPPER 10/19/17 Pantoprazole Sodium [Protonix] 40 mg PO DAILY 10/19/17 Salmeterol Xinafoate [Serevent Diskus 50 Mcg/Dose 28 Dose/Diskus] 1 puff IH Q12 10/19/17 Tiotropium [place] [Spiriva Handihaler 18 mcg/dose (30 Dose)] 1 cap IH DAILY Allergies/Adverse Reactions: azithromycin Allergy (Verified 08/31/17 02:36) amoxicillin [Amoxicillin] Adverse Reaction (Verified 07/26/17 11:39) visual hallucinations erythromycin base [Erythromycin Base] Adverse Reaction (Verified 07/26/17 11:39) visual hallucinations Potassium Clavulanate * [From Augmentin] Adverse Reaction (Verified 07/26/17 11: 39) visual hallucinations Review of Systems Constitutional: ABSENT: chills, fever(s), headache(s), weight gain, weight loss Eyes: ABSENT: visual disturbances Ears: ABSENT: hearing changes Cardiovascular: ABSENT: chest pain, dyspnea on exertion, edema, orthropnea, palpitations Respiratory: PRESENT: as per HPI Gastrointestinal: PRESENT: as per HPI Musculoskeletal: ABSENT: back pain, deformity, joint swelling, muscle weakness Neurological: ABSENT: abnormal gait, abnormal speech, confusion, dizziness, focal weakness, syncope Psychiatric: ABSENT: anxiety, depression, homidical ideation, suicidal ideation Endocrine: PRESENT: as per HPI Physical Exam Vital Signs: Temp Pulse Resp BP Pulse Ox 98.9 F 102 H 18 96/58 L 98 10/22/17 15:09 10/22/17 15:09 10/22/17 15:09 10/22/17 15:09 10/22/17 15:09 Intake & Output 10/21/17 10/22/17 10/23/17 06:59 06:59 06:59 Intake Total 2120 1670 780 Balance 21200 780 Weight 82.9 kg General appearance: PRESENT: no acute distress, morbidly obese Head exam: PRESENT: atraumatic, normocephalic Eye exam: PRESENT: conjunctiva pink, EOMI, PERRLA. ABSENT: scleral icterus Ear exam: PRESENT: normal external ear exam Respiratory exam: PRESENT: crackles, unlabored Cardiovascular exam: PRESENT: +S1, +S2 GI/Abdominal exam: PRESENT: normal bowel sounds, soft, other - port site incisional scars in the immediate infraumbilical and upper abdominal areas. ABSENT: ascites, diminished bowel sounds, distended, firm, guarding, hernia, hyperactive bowel sounds, hypoactive bowel sounds, mass, Youngblood's sign, organolmegaly, rebound, rigid, tenderness Rectal exam: PRESENT: normal rectal tone, other - anal skin tags. ABSENT: black stool, bloody stool, fecal impaction, hemorrhoids, laceration, mass, normal inspection Neurological exam: PRESENT: alert, awake, oriented to person, oriented to place , oriented to time, oriented to situation, CN II-XII grossly intact. ABSENT: motor sensory deficit Results Laboratory Results: 10/22/17 14:44 10/22/17 05:30 10/22/17 10/22/17 10/22/17 05:30 05:30 09:22 WBC 7.6 RBC 2.36 L Hgb 7.6 L Hct 22.9 L MCV 97 MCH 32.2 MCHC 33.2 RDW 17.3 H Plt Count 146 L Seg Neutrophils % 79.5 H Lymphocytes % 7.9 L Monocytes % 11.2 Eosinophils % 0.9 Basophils % 0.5 Absolute Neutrophils 6.0 Absolute Lymphocytes 0.6 Absolute Monocytes 0.8 Absolute Eosinophils 0.1 Absolute Basophils 0.0 Sodium 142.3 Potassium 3.7 Chloride 111 H Carbon Dioxide 28 Anion Gap 3 L BUN 9 Creatinine 0.59 Est GFR ( Amer) > 60 Est GFR (Non-Af Amer) > 60 Glucose 86 Calcium 7.9 L Phosphorus 2.2 L Magnesium 1.9 Stool Occult Blood POSITIVE Blood Type Antibody Screen 10/22/17 10/22/17 14:44 14:44 WBC 6.7 RBC 2.44 L Hgb 7.9 L Hct 23.7 L MCV 97 MCH 32.4 MCHC 33.5 RDW 17.6 H Plt Count 157 Seg Neutrophils % Lymphocytes % Monocytes % Eosinophils % Basophils % Absolute Neutrophils Absolute Lymphocytes Absolute Monocytes Absolute Eosinophils Absolute Basophils Sodium Potassium Chloride Carbon Dioxide Anion Gap BUN Creatinine Est GFR ( Amer) Est GFR (Non-Af Amer) Glucose Calcium Phosphorus Magnesium Stool Occult Blood Blood Type O POSITIVE Antibody Screen NEGATIVE 10/19/17 10/19/17 04:13 10:29 Troponin I 0.032 0.026 Impressions: Foot X-Ray 10/18/17 00:00 IMPRESSION: Cannot exclude fracture of the 4th proximal phalanx. Chest X-Ray 10/18/17 19:11 IMPRESSION: There is no acute cardiopulmonary disease. No interval change. Assessment & Plan - Diagnosis (1) GI bleed Qualifiers: GI bleed type/associated pathology: gastritis Gastritis type: acute gastritis Qualified Code(s): K29.01 - Acute gastritis with bleeding Is this a current diagnosis for this admission?: Yes (2) Anemia Qualifiers: Anemia type: unspecified type Qualified Code(s): D64.9 - Anemia, unspecified Is this a current diagnosis for this admission?: Yes - Plan Summary Plan Summary: Will prep and schedule for an EGD/ colonoscopy in AM.
[2017-10-23] MEDS: VANCOMYCIN HCL INJ 500 MG VIAL PO SCH ×4 (03:31→21:52)
[2017-10-23] MEDS: ALBUTEROL SULFATE 0.083% NEB 2.5 MG/3 ML AMPUL NEB PRN ×2 (04:35→12:40)
[2017-10-23] MEDS: LANSOPRAZOLE 30 MG TAB.RAP.DR PO SCH (05:44)
[2017-10-23] MEDS: PANTOPRAZOLE SODIUM 40 MG VIAL IV SCH ×2 (05:44→18:42)
[2017-10-23] MEDS: LEVOTHYROXINE SODIUM 0.088 MG TABLET PO SCH (05:45)
[2017-10-23 07:10] LABS: HEMATOCRIT 31.8 % (36.0-47.0); MEAN CORPUSCULAR HEMOGLOBIN 32.2 pg (27.0-33.4); MEAN CORPUSCULAR HGB CONC 34.3 g/dL (32.0-36.0); MEAN CORPUSCULAR VOLUME 94 fl (80-97); PLATELET COUNT 176 10^3/uL (150-450); RED BLOOD COUNT 3.39 10^6/uL (3.72-5.28); RED CELL DISTRIBUTION WIDTH 16.8 % (11.5-14.0); WHITE BLOOD COUNT 7.7 10^3/uL (4.0-10.5)
[2017-10-23 07:11] LABS: HEMOGLOBIN 10.9 g/dL (12.0-15.5)
[2017-10-23 07:22] LABS: ANION GAP 5 (5-19); BLOOD UREA NITROGEN 8 mg/dL (7-20); CALCIUM 8.3 mg/dL (8.4-10.2); CARBON DIOXIDE 29 mmol/L (22-30); CHLORIDE 111 mmol/L (98-107); GLUCOSE 71 mg/dL (75-110); PHOSPHORUS 2.5 mg/dL (2.5-4.5); POTASSIUM 3.6 mmol/L (3.6-5.0); SODIUM 144.5 mmol/L (137-145)
[2017-10-23 07:56] LABS: ABSOLUTE LYMPHOCYTES# (MANUAL) 0.9 10^3/uL (0.5-4.7); ABSOLUTE MONOCYTES # (MANUAL) 0.3 10^3/uL (0.1-1.4); ABSOLUTE NEUTROPHILS# (MANUAL) 6.5 10^3/uL (1.7-8.2); BASOPHILS % (MANUAL) 0 % (0-2); EOSINOPHILS % (MANUAL) 0 % (0-6); LYMPHOCYTES % (MANUAL) 12 % (13-45); METAMYELOCYTES % (MANUAL) 1 % (0); MONOCYTES % (MANUAL) 4 % (3-13); SEGMENTED NEUTROPHILS % (MAN) 83 % (42-78); TOTAL CELLS COUNTED 100
[2017-10-23 07:58] LABS: ANISOCYTOSIS 1+; OVALOCYTES SLIGHT; PLATELET COMMENT ADEQUATE; POIKILOCYTOSIS SLIGHT; TEAR DROP CELLS SLIGHT; TOXIC GRANULATION 1+
[2017-10-23] MEDS ORDERED: PROPOFOL INJ 200 MG/20 ML VIAL IV ONE (09:25)
[2017-10-23] MEDS ORDERED: ONDANSETRON HCL INJ/PF 4 MG/2 ML SDV ONE (09:25)
--- NOTE | 2017-10-23 10:42 | Operative Report ---
Operative Report DATE OF SURGERY: 10/23/17 PREOPERATIVE DIAGNOSIS: 1. Blood loss anemia. 2. Heme positive stools. 3. End-stage COPD POSTOPERATIVE DIAGNOSIS: Same with. 1. Gastric polyposis. 2. Mild left colonic colitis OPERATION: 1. Esophagogastroduodenoscopy with photodocumentation. 2. Gastric antral biopsy of polyp. 3. Total colonoscopy to cecum with photodocumentation SURGEON: BERNARDINO GONZALES ANESTHESIA: LMAC TISSUE REMOVED OR ALTERED: Biopsy polyp COMPLICATIONS: None ESTIMATED BLOOD LOSS: Scant INTRAOPERATIVE FINDINGS: See below PROCEDURE: The patient was seen in the preop holding area then taken to the main operating room where LMAC anesthesia was induced. Of note due to patient's obesity, and advanced COPD, extra care was taken in maintaining her airway, saturations and general hemodynamic status. She was placed in the semirecumbent left lateral tilt position oral mouthpiece inserted. Surgical plan surgical timeout conducted. The flexible adult upper endoscope was advanced to the oropharynx, down the esophagus through the stomach and into the duodenum. This is an excellent study , tolerated well by the patient. The first and second portions of the duodenum were normal. The scope was brought back to the pylorus which was normal. The stomach was replete with gastric polyposis of the fundic type. All small between 2 and 4 mm in maximum diameter. Photos were taken and a sample polyp was removed with cold forceps device and sent his gastric polyp from the antrum. The scope was retroflexed in the stomach, and small hiatal hernia seen. Of note there was no evidence of bleeding, stricture, clot. The scope was brought back to the GE junction. Z line was at approximately 40 cm from the incisor. The esophagus was essentially unremarkable with no evidence of bleeding stricture tumor or varix. Scope was withdrawn the patient oropharynx. She tolerated procedure well. Instrumentation was set for colonoscopy. A rectal exam was performed. There is no evidence of palpable anorectal pathology. The flexible adult colonoscope was advanced to the anorectal canal all the way to the cecum. This is well tolerated by the patient. The bowel prep was very good but not perfect. In the cecum there was a significant amount of vegetable matter consistent with undigested collards. We spent a fair amount of time debriding some of the collar but we were never able to clear all the college from the cecum. The scope was withdrawn from the cecum all the way to the anus. There was no evidence of tumor stricture or bleeding. There was some mild colitis nonulcerated in the left colon and photographs taken. There were scattered diverticular disease but only a few in the left colon. Scope was withdrawn to the patient's anus. She tolerated procedure well. Instructions will be provided for the medicine team. No indication for further intervention at this moment.
[2017-10-23] MEDS: TIOTROPIUM BROMIDE DPI 5 CAP/KIT (18 MCG/CAP) IH SCH (13:00)
[2017-10-23] MEDS: SALMETEROL XINAFOATE DISKUS 50 MCG/1 DOSE 28 DOSE IH SCH ×2 (13:00→21:52)
[2017-10-23] MEDS: FLUTICASONE/SALMETEROL DISKUS 250-50 MCG/DOSE IH SCH ×2 (13:00→21:52)
[2017-10-23] MEDS ORDERED: METHYLPREDNISOLONE INJ 40 MG/1 ML SDV IV SCH (15:30)
--- NOTE | 2017-10-23 15:44 | PDOC PROGRESS REPORT ---
Subjective Progress Note for:: 10/23/17 Subjective:: TRENTON MCCOY is a 72 year old female who is well known to the hospitalist service. The patient was sent to the emergency department from her primary care physician's office for suspected GI bleed and HYPOtension. While in the emergency department, the patient also complained of R foot pain. The patient was seen this afternoon following her colonoscopy, she has no complaints. The patient has still been experiencing multiple episodes of watery diarrhea per shift. +C. difficile. Reason For Visit: HYPOTENSION Physical Exam Vital Signs: Temp Pulse Resp BP Pulse Ox 98.3 F 112 H 22 H 149/76 H 95 10/23/17 13:10 10/23/17 14:00 10/23/17 13:10 10/23/17 13:10 10/23/17 13:10 Intake & Output 10/22/17 10/23/17 10/24/17 06:59 06:59 06:59 Intake Total 1670 1630 510 Output Total 150 Balance 1670 1630 360 Weight 82.9 kg General appearance: PRESENT: no acute distress Head exam: PRESENT: atraumatic Eye exam: PRESENT: conjunctiva pink Mouth exam: PRESENT: moist Neck exam: PRESENT: full ROM Respiratory exam: PRESENT: symmetrical, unlabored, wheezes - bilateral lower lung bases Cardiovascular exam: PRESENT: +S1, +S2 Pulses: PRESENT: normal radial pulses, normal dorsalis pedis pul GI/Abdominal exam: PRESENT: normal bowel sounds, soft. ABSENT: tenderness Rectal exam: PRESENT: deferred Extremities exam: PRESENT: full ROM, +1 edema - ALL EXTREMITIES Musculoskeletal exam: PRESENT: full ROM Neurological exam: PRESENT: alert, awake, oriented to person, oriented to place , oriented to time, oriented to situation Psychiatric exam: PRESENT: appropriate affect Skin exam: PRESENT: normal color Results Laboratory Results: 10/23/17 05:22 10/23/17 05:30 10/22/17 10/23/17 10/23/17 14:44 05:22 05:30 WBC 7.7 RBC 3.39 L Hgb 10.9 L D Hct 31.8 L MCV 94 MCH 32.2 MCHC 34.3 RDW 16.8 H Plt Count 176 Seg Neutrophils % Not Reportable Lymphocytes % Not Reportable Monocytes % Not Reportable Eosinophils % Not Reportable Basophils % Not Reportable Absolute Neutrophils Not Reportable Absolute Lymphocytes Not Reportable Absolute Monocytes Not Reportable Absolute Eosinophils Not Reportable Absolute Basophils Not Reportable Sodium 144.5 Potassium 3.6 Chloride 111 H Carbon Dioxide 29 Anion Gap 5 BUN 8 Creatinine 0.64 Est GFR ( Amer) > 60 Est GFR (Non-Af Amer) > 60 Glucose 71 L Calcium 8.3 L Phosphorus 2.5 Magnesium 1.8 Blood Type O POSITIVE Antibody Screen NEGATIVE 10/19/17 10/19/17 04:13 10:29 Troponin I 0.032 0.026 Impressions: Foot X-Ray 10/18/17 00:00 IMPRESSION: Cannot exclude fracture of the 4th proximal phalanx. Chest X-Ray 10/18/17 19:11 IMPRESSION: There is no acute cardiopulmonary disease. No interval change. Status: Imported from PACS Assessment & Plan - Diagnosis (1) C. difficile diarrhea Is this a current diagnosis for this admission?: Yes Plan: Nursing staff reports the patient has been experiencing frequent episodes of watery diarrhea. Stool sample positive for C. difficile Initiate vancomycin 125 mg by mouth every 6 hours for 10 days. Monitor for fever and leukocytosis, currently patient is afebrile and her WBC is within normal limits (2) GI bleed Qualifiers: GI bleed type/associated pathology: gastritis Gastritis type: acute gastritis Qualified Code(s): K29.01 - Acute gastritis with bleeding Is this a current diagnosis for this admission?: Yes Plan: Unclear etiology Hgb dropped from 11 -> 7.6 over approx. 4 days Type & screen done Initial hemoccult NEGATIVE (10/18) repeat hemoccult POSITIVE (10/22) Surgery performed EGD and colonoscopy - no evidence of bleeding Plan to CT Scan chest/abd/pelvis to evaluate for bleeding (3) Hypotension Qualifiers: Hypotension type: unspecified hypotension type Qualified Code(s): I95.9 - Hypotension, unspecified Is this a current diagnosis for this admission?: Yes Plan: Unclear etiology - 10/23/2017 EGD and Colonoscopy negative for bleeding. Repeat hemoccult from 10/22 POSITIVE. Hgb dropped from 11-> 7.6 over four days Plan to CT scan Chest/Abd/pelvis today to assess for bleeding. HYPOtension also be due to volume depletion secondary to C. difficile colitis. Patient is able to tolerate clear liquid diet, discontinued IVF due to evidence of volume overload (peripheral edema) I do not believe the patient's HYPOtension is secondary to cardiac pathology. Serial cardiac enzymes downtrending, no longer following. Echocardiogram normal, could not assess LVEF, mild MR, mild pulmonary HYPERtension Chest xray shows no acute findings. EKG shows old RBBB, no evidence of acute infarction or ischemia (4) Right foot pain Is this a current diagnosis for this admission?: Yes Plan: Patient states she has R foot pain. Xray of R foot inconclusive for fracture of 4th proximal phalanx No bruising or swelling to the area Pain management with PRN tylenol. Patient can wear orthopedic boot for comfort (5) Small cell lung cancer Is this a current diagnosis for this admission?: Yes Plan: With brain metastasis, in remission per patient. (6) CHF (congestive heart failure) Qualifiers: Heart failure type: unspecified Heart failure chronicity: chronic Qualified Code(s): I50.9 - Heart failure, unspecified Is this a current diagnosis for this admission?: No Plan: Cardiac enzymes negative, no longer trending. Echocardiogram normal, could not assess LVEF, mild MR, mild pulmonary HYPERtension. Will resume home medications (7) Chronic respiratory failure Qualifiers: Respiratory failure complication: unspecified whether with hypoxia or hypercapnia Qualified Code(s): J96.10 - Chronic respiratory failure, unspecified whether with hypoxia or hypercapnia Is this a current diagnosis for this admission?: No Plan: Mild wheezing heard in b/l lower lung bases this morning. The patient has no respiratory complaints. Initiate solumendrol 60mg q6hr and duoneb q 4hr. Chronic COPD on 2 L home oxygen. SpO2 > 90% on supplemental oxygen. Chest x-ray benign. Continue home dose Spiriva and Advair. - Time Time Spent with patient: 15-24 minutes Medications reviewed and adjusted accordingly: Yes Anticipated discharge: Home - Inpatient Certification Based on my medical assessment, after consideration of the patient's comorbidities, presenting symptoms, or acuity I expect that the services needed warrant INPATIENT care.: Yes I certify that my determination is in accordance with my understanding of Medicare's requirements for reasonable and necessary INPATIENT services [42 CFR 412.3e].: Yes Medical Necessity: Risk of Complication if Not Cared For in Hospital - Plan Summary Plan Summary: THE PLAN IS TO STABILIZE THE PATIENT'S HGB, TREAT HER C.DIFF, AND SEND HER HOME. THE PATIENT IS WELL KNOWN TO THE HOSPITALIST SERVICE. SHE HAS REFUSED ACUTE [facility] OR SNF IN THE PAST.
--- NOTE | 2017-10-23 16:51 | RADIOLOGY REPORT (SQ) ---
EXAM DESCRIPTION: CT CHEST WITHOUT COMPLETED DATE/TIME: 10/23/2017 4:40 pm REASON FOR STUDY: r/o bleeding. Recent drop in Hgb 11 -> 7.6 COMPARISON: 09/13/2017 TECHNIQUE: CT scan performed of the chest without intravenous contrast. Images reviewed with lung, soft tissue and bone windows. Reconstructed coronal and sagittal MPR images reviewed. All images st ored on PACS. All CT scanners at this facility use dose modulation, iterative reconstruction, and/or weight based d osing when appropriate to reduce radiation dose to as low as reasonably achievable (ALARA). [facility]: Dose Right [facility]: CareDose [facility]: Dose Right [facility]: Teradose 4D [facility]: OpenFin RADIATION DOSE: mGy. LIMITATIONS: No technical limitations. FINDINGS: LUNGS AND PLEURA: Bilateral pleural effusions, right greater than left with volume on the right estimated less than 500 cc. Chronic parenchymal density in the right hilum. HILAR AND MEDIASTINAL STRUCTURES: No identified masses or abnormal nodes. No obvious aneurysm. HEART AND VASCULAR STRUCTURES: No aneurysm. Small pericardial effusion. UPPER ABDOMEN: See separate report of the CT of the abdomen. THYROID AND OTHER SOFT TISSUES: No masses. No adenopathy. BONES: No acute findings. HARDWARE: None in the chest. OTHER: No other significant findings. IMPRESSION: No evidence of hemorrhage. Small pleural effusions. TECHNICAL DOCUMENTATION: JOB ID: [id number] Quality ID # [id number]: Final reports with documentation of one or more dose reduction techniques (e.g., Au tomated exposure control, adjustment of the mA and/or kV according to patient size, use of iterative reconstruction technique) 2010 [employer]- All Rights Reserved Reading location - IP/workstation name: [email or web address]
--- NOTE | 2017-10-23 16:53 | RADIOLOGY REPORT (SQ) ---
EXAM DESCRIPTION: CT ABD/PELVIS NO ORAL OR IV COMPLETED DATE/TIME: 10/23/2017 4:40 pm REASON FOR STUDY: r/o bleeding. Recent drop in Hgb 11 -> 7.6 COMPARISON: 11/05/2013 TECHNIQUE: CT scan of the abdomen and pelvis performed without intravenous or oral contrast. Images reviewed with lung, soft tissue, and bone windows. Reconstructed coronal and sagittal MPR images revi ewed. All images stored on PACS. All CT scanners at this facility use dose modulation, iterative reconstruction, and/or weight based d osing when appropriate to reduce radiation dose to as low as reasonably achievable (ALARA). [facility]: Dose Right [facility]: CareDose [facility]: Dose Right [facility]: Teradose 4D [facility]: [employer] RADIATION DOSE: CT Rad equipment meets quality standard of care and radiation dose reduction techniq ues were employed. CTDIvol: 21.2 - 25.4 mGy. DLP: 1987 mGy-cm.mGy. LIMITATIONS: Positioning. FINDINGS: LOWER CHEST: See separate report of the CT of the chest. NON-CONTRASTED LIVER, SPLEEN, ADRENALS: Pneumobilia. PANCREAS: No masses. No peripancreatic inflammatory changes. GALLBLADDER: Surgically absent. RIGHT KIDNEY AND URETER: No suspicious masses. Assessment limited by lack of IV contrast. No signif icant calcifications. No hydronephrosis or hydroureter. LEFT KIDNEY AND URETER: No suspicious masses. Assessment limited by lack of IV contrast. No signifi cant calcifications. No hydronephrosis or hydroureter. AORTA AND RETROPERITONEUM: No aneurysm. No retroperitoneal masses or adenopathy. BOWEL AND PERITONEAL CAVITY: Diverticulosis sigmoid colon. APPENDIX: Normal. PELVIS, BLADDER, AND ABDOMINAL WALL:No abnormal masses. No free fluid. Bladder normal. BONES: No acute findings. OTHER: No other significant finding. IMPRESSION: No evidence of retroperitoneal hemorrhage. No acute findings. COMMENT: Quality ID # [id number]: Final reports with documentation of one or more dose reduction techniques (e.g., Automated exposure control, adjustment of the mA and/or kV according to patient size, use of iterative reconstruction technique) TECHNICAL DOCUMENTATION: JOB ID: [id number] [employer]- All Rights Reserved Reading location - IP/workstation name: [email or web address]
[2017-10-23] MEDS: IPRATROPIUM/ALBUTEROL 0.5-2.5 MG/3 ML AMPUL NEB SCH ×2 (17:20→20:20)
[2017-10-23] MEDS: METHYLPREDNISOLONE INJ 125 MG/2 ML SDV IV SCH (21:55)
[2017-10-24] MEDS: IPRATROPIUM/ALBUTEROL 0.5-2.5 MG/3 ML AMPUL NEB SCH ×5 (00:04→16:18)
[2017-10-24] MEDS: VANCOMYCIN HCL INJ 500 MG VIAL PO SCH ×4 (04:54→21:19)
[2017-10-24 05:47] LABS: HEMATOCRIT 31.3 % (36.0-47.0); HEMOGLOBIN 10.6 g/dL (12.0-15.5); MEAN CORPUSCULAR HEMOGLOBIN 31.6 pg (27.0-33.4); MEAN CORPUSCULAR HGB CONC 33.8 g/dL (32.0-36.0); MEAN CORPUSCULAR VOLUME 93 fl (80-97); RED BLOOD COUNT 3.36 10^6/uL (3.72-5.28); RED CELL DISTRIBUTION WIDTH 16.7 % (11.5-14.0); WHITE BLOOD COUNT 8.5 10^3/uL (4.0-10.5)
[2017-10-24 06:05] LABS: ANION GAP 8 (5-19); BLOOD UREA NITROGEN 10 mg/dL (7-20); CALCIUM 8.6 mg/dL (8.4-10.2); CARBON DIOXIDE 28 mmol/L (22-30); CHLORIDE 108 mmol/L (98-107); GLUCOSE 190 mg/dL (75-110); PHOSPHORUS 3.6 mg/dL (2.5-4.5); POTASSIUM 4.1 mmol/L (3.6-5.0); SODIUM 143.7 mmol/L (137-145)
[2017-10-24 06:15] LABS: ABSOLUTE LYMPHOCYTES# (MANUAL) 0.3 10^3/uL (0.5-4.7); ABSOLUTE MONOCYTES # (MANUAL) 0.1 10^3/uL (0.1-1.4); ABSOLUTE NEUTROPHILS# (MANUAL) 8.2 10^3/uL (1.7-8.2); BASOPHILS % (MANUAL) 0 % (0-2); EOSINOPHILS % (MANUAL) 0 % (0-6); LYMPHOCYTES % (MANUAL) 3 % (13-45); MONOCYTES % (MANUAL) 1 % (3-13); SEGMENTED NEUTROPHILS % (MAN) 96 % (42-78); TOTAL CELLS COUNTED 100
[2017-10-24 06:16] LABS: ANISOCYTOSIS 1+; OVALOCYTES 1+; POIKILOCYTOSIS 1+; POLYCHROMASIA SLIGHT; TOXIC GRANULATION SLIGHT
[2017-10-24 06:17] LABS: PLATELET CLUMPS PRESENT; PLATELET COMMENT ADEQUATE; PLATELET COUNT 176 10^3/uL (150-450); TEAR DROP CELLS 1+
[2017-10-24] MEDS: METHYLPREDNISOLONE INJ 125 MG/2 ML SDV IV SCH ×3 (06:36→17:58)
[2017-10-24] MEDS: PANTOPRAZOLE SODIUM 40 MG VIAL IV SCH ×2 (06:36→17:55)
[2017-10-24] MEDS: LANSOPRAZOLE 30 MG TAB.RAP.DR PO SCH (06:36)
[2017-10-24] MEDS: LEVOTHYROXINE SODIUM 0.088 MG TABLET PO SCH (06:36)
[2017-10-24] MEDS: SALMETEROL XINAFOATE DISKUS 50 MCG/1 DOSE 28 DOSE IH SCH ×2 (09:31→21:20)
[2017-10-24] MEDS: INSULIN LISPRO 100 UNIT/ML 3 ML VIAL SUBCUT PRN ×3 (09:31→18:01)
[2017-10-24] MEDS: TIOTROPIUM BROMIDE DPI 5 CAP/KIT (18 MCG/CAP) IH SCH (09:32)
[2017-10-24] MEDS: FLUTICASONE/SALMETEROL DISKUS 250-50 MCG/DOSE IH SCH ×2 (09:32→21:20)
--- NOTE | 2017-10-24 16:50 | PDOC PROGRESS REPORT ---
Subjective Progress Note for:: 10/24/17 Subjective:: The patient is a 72-year-old female with a history of dementia, small cell lung cancer with brain metastasis (post chemoradiation, in remission per patient), chronic respiratory failure/COPD on home oxygen, CAD/CHF, and type 2 diabetes mellitus who was admitted on 10/18/17 for hypotension and suspected GI bleed. Now found to have c. diff stools. The patient is seen on morning rounds. She is found resting in bed comfortably after having just had an incontinent stool episode. The patient is now asking to be discharged to home. She tells me that she is primary bed bound at baseline but that her son and his girlfriend now live with her and are willing to care for her in her current condition. She states that she normally is continent and uses a bedside commode. She states that she is "too weak" to use a bedside commode today and is afraid of falling. She reports that she fell at home several weeks ago. She denies fever, chills, chest pain, dyspnea, abdominal pain, nausea and vomiting. She is currently tolerating a normal diet. Other than requesting to be discharged, she has no new questions or concerns today. Reason For Visit: HYPOTENSION Physical Exam Vital Signs: Temp Pulse Resp BP Pulse Ox 97.9 F 113 H 16 123/72 99 10/24/17 15:19 10/24/17 15:19 10/24/17 15:19 10/24/17 15:19 10/24/17 15:19 Intake & Output 10/23/17 10/24/17 10/25/17 06:59 06:59 06:59 Intake Total 1630 1085 Output Total 150 Balance 1630 935 General appearance: PRESENT: no acute distress, well-developed, well-nourished, other - Overweight Head exam: PRESENT: atraumatic, normocephalic Eye exam: PRESENT: conjunctiva pink, EOMI, PERRLA. ABSENT: scleral icterus Ear exam: PRESENT: normal external ear exam Mouth exam: PRESENT: moist, tongue midline Neck exam: ABSENT: carotid bruit, JVD, lymphadenopathy, thyromegaly Respiratory exam: PRESENT: symmetrical, unlabored, wheezes - Occasional expiratory wheeze. ABSENT: rales, rhonchi Cardiovascular exam: PRESENT: RRR, +S1, +S2. ABSENT: diastolic murmur, rubs, systolic murmur Pulses: PRESENT: normal dorsalis pedis pul Vascular exam: PRESENT: normal capillary refill GI/Abdominal exam: PRESENT: normal bowel sounds, soft. ABSENT: distended, guarding, mass, organolmegaly, rebound, tenderness Rectal exam: PRESENT: deferred Extremities exam: PRESENT: full ROM, +1 edema - Trace edema. ABSENT: calf tenderness, clubbing, pedal edema Neurological exam: PRESENT: alert, awake, oriented to person, oriented to place , oriented to time, oriented to situation, CN II-XII grossly intact. ABSENT: motor sensory deficit Psychiatric exam: PRESENT: appropriate affect, normal mood. ABSENT: homicidal ideation, suicidal ideation Skin exam: PRESENT: dry, intact, warm. ABSENT: cyanosis, rash Results Laboratory Results: 10/24/17 05:26 10/24/17 05:26 10/24/17 10/24/17 05:26 05:26 WBC 8.5 RBC 3.36 L Hgb 10.6 L Hct 31.3 L MCV 93 MCH 31.6 MCHC 33.8 RDW 16.7 H Plt Count 176 Seg Neutrophils % Not Reportable Lymphocytes % Not Reportable Monocytes % Not Reportable Eosinophils % Not Reportable Basophils % Not Reportable Absolute Neutrophils Not Reportable Absolute Lymphocytes Not Reportable Absolute Monocytes Not Reportable Absolute Eosinophils Not Reportable Absolute Basophils Not Reportable Sodium 143.7 Potassium 4.1 Chloride 108 H Carbon Dioxide 28 Anion Gap 8 BUN 10 Creatinine 0.59 Est GFR ( Amer) > 60 Est GFR (Non-Af Amer) > 60 Glucose 190 H Calcium 8.6 Phosphorus 3.6 Magnesium 1.7 10/19/17 10/19/17 04:13 10:29 Troponin I 0.032 0.026 Impressions: Foot X-Ray 10/18/17 00:00 IMPRESSION: Cannot exclude fracture of the 4th proximal phalanx. Chest X-Ray 10/18/17 19:11 IMPRESSION: There is no acute cardiopulmonary disease. No interval change. Abdomen/Pelvis CT 10/23/17 00:00 IMPRESSION: No evidence of retroperitoneal hemorrhage. No acute findings. Chest CT 10/23/17 00:00 IMPRESSION: No evidence of hemorrhage. Small pleural effusions. Assessment & Plan - Diagnosis (1) C. difficile diarrhea Is this a current diagnosis for this admission?: Yes Plan: Nursing staff reports that the patient continues to have frequent incontinent episodes of watery diarrhea. Patient is fairly immobile and declines to get up to recliner or to use bedside commode at this time. Stool sample positive for C. difficile. Continue vancomycin 125 mg p.o. every 6 hours. Currently day 4 of 10. (2) GI bleed Qualifiers: GI bleed type/associated pathology: gastritis Gastritis type: acute gastritis Qualified Code(s): K29.01 - Acute gastritis with bleeding Is this a current diagnosis for this admission?: Yes Plan: Unclear etiology; likely associated with C. difficile infection. Hemoglobin dropped from 11-7.6 over approximately 4 days. Type and screen was done and she was transfused 2 units packed red blood cells. Hemoccult positive on 10/17 12/[address]. CT scan of the chest abdomen and pelvis did not demonstrate evidence of acute bleed. Surgery performed EGD and colonoscopy; no evidence of active bleeding. Hgb now stable at 10.6; will continue to monitor and transfuse as necessary. (3) CHF (congestive heart failure) Qualifiers: Heart failure type: unspecified Heart failure chronicity: chronic Qualified Code(s): I50.9 - Heart failure, unspecified Is this a current diagnosis for this admission?: Yes Plan: Cardiac enzymes were negative; no longer trending. Echocardiogram: preserved ejection fraction, mild to moderate diastolic dysfunction. The patient's home medications, lisinopril and amlodipine, are resumed. (4) Chronic respiratory failure Qualifiers: Respiratory failure complication: unspecified whether with hypoxia or hypercapnia Qualified Code(s): J96.10 - Chronic respiratory failure, unspecified whether with hypoxia or hypercapnia Is this a current diagnosis for this admission?: Yes Plan: Chronic respiratory failure secondary to COPD. Slight wheezing noted again today. The patient is currently on IV Solu-Medrol; will begin to wean. Supplemental oxygen as needed to maintain oxygen saturations greater than 88% Continue the patient's home medication; Advair, Spiriva, and Serevent Mucinex twice daily. As needed nebulizer treatments. Incentive spirometry and flutter valve to bedside. (5) Hypotension Qualifiers: Hypotension type: unspecified hypotension type Qualified Code(s): I95.9 - Hypotension, unspecified Is this a current diagnosis for this admission?: Yes Plan: Improved; blood pressure is now 130s/70s. Hypotension likely secondary to volume depletion in setting of C. difficile colitis. Patient is now tolerating a regular diet. IV fluids have been discontinued to prevent fluid volume overload in patient with CHF. We will continue to monitor closely. (6) Right foot pain Is this a current diagnosis for this admission?: Yes Plan: Patient states that she has right foot pain; x-ray of right foot inconclusive for fracture of the fourth proximal phalanx. No bruising or swelling to the area. Patient is primarily immobile. Tylenol as needed for pain. Patient can wear with pubic boot for comfort. (7) Small cell lung cancer Is this a current diagnosis for this admission?: Yes Plan: With brain metastasis, in remission per patient. (8) Tachycardia Is this a current diagnosis for this admission?: Yes Plan: The patient has been persistently tachycardic in the low 100s since time of admission. This may be in part due to acute infection with C. difficile versus volume depletion. Additionally, the patient's home medications were held; she was not receiving Norvasc, which was resumed today. The patient was also receiving scheduled duo nebs with both albuterol and Xopenex available as needed. I have reduced the frequency of nebulizer treatments as this may have been causing tachycardia as a side effect. Serial troponins were negative and are no longer being treated. Echocardiogram as above. We will continue to monitor on continuous cardiac telemetry; patient currently in a sinus rhythm. Consider metoprolol if blood pressures allow. (9) Generalized weakness Is this a current diagnosis for this admission?: Yes Plan: The patient reports that she is primarily bedbound at home and uses bedside commode with assistance. Here in the hospital, she is refusing to get up to the chair or the bedside commode even with assistance due to fear of falling. Patient has been readmitted multiple times and I have concerns that she does not have as much of a support system at home as she alludes to. I have asked the wedding planner to verify her home living situation and make recommendations for penitentiary facility, at minimum, short-term rehab upon discharge. Consider APS referral. - Time Time Spent with patient: 35 or more minutes Medications reviewed and adjusted accordingly: Yes Anticipated discharge: SNF Within: within 24 hours, within 48 hours - Inpatient Certification Based on my medical assessment, after consideration of the patient's comorbidities, presenting symptoms, or acuity I expect that the services needed warrant INPATIENT care.: Yes I certify that my determination is in accordance with my understanding of Medicare's requirements for reasonable and necessary INPATIENT services [42 CFR 412.3e].: Yes Medical Necessity: Need Close Monitoring Due to Risk of Patient Decompensation, Need For Continuous Telemetry Monitoring - Patient is persistently tachycardic
[2017-10-24] MEDS: AMLODIPINE BESYLATE 2.5 MG TABLET PO SCH (21:19)
[2017-10-24] MEDS: GUAIFENESIN 600 MG TABLET.SA PO SCH (21:19)
[2017-10-24] MEDS: LEVALBUTEROL HCL NEB 1.25 MG/3 ML AMPUL NEB PRN (23:38)
[2017-10-25] MEDS: VANCOMYCIN HCL INJ 500 MG VIAL PO SCH ×4 (02:22→21:27)
[2017-10-25] MEDS: METHYLPREDNISOLONE INJ 125 MG/2 ML SDV IV SCH ×3 (02:23→18:25)
[2017-10-25] MEDS: ACETAMINOPHEN 325 MG TABLET PO PRN (03:05)
[2017-10-25] MEDS: LEVALBUTEROL HCL NEB 1.25 MG/3 ML AMPUL NEB PRN ×3 (03:55→20:47)
[2017-10-25] MEDS: PANTOPRAZOLE SODIUM 40 MG VIAL IV SCH (05:39)
[2017-10-25] MEDS: LANSOPRAZOLE 30 MG TAB.RAP.DR PO SCH (05:40)
[2017-10-25] MEDS: LEVOTHYROXINE SODIUM 0.088 MG TABLET PO SCH (05:40)
[2017-10-25 05:43] LABS: HEMATOCRIT 28.6 % (36.0-47.0); HEMOGLOBIN 9.8 g/dL (12.0-15.5); MEAN CORPUSCULAR HEMOGLOBIN 32.1 pg (27.0-33.4); MEAN CORPUSCULAR HGB CONC 34.3 g/dL (32.0-36.0); MEAN CORPUSCULAR VOLUME 94 fl (80-97); PLATELET COUNT 171 10^3/uL (150-450); RED BLOOD COUNT 3.06 10^6/uL (3.72-5.28); RED CELL DISTRIBUTION WIDTH 16.5 % (11.5-14.0); WHITE BLOOD COUNT 9.5 10^3/uL (4.0-10.5)
[2017-10-25 06:07] LABS: ANION GAP 8 (5-19); BLOOD UREA NITROGEN 17 mg/dL (7-20); CALCIUM 9.2 mg/dL (8.4-10.2); CARBON DIOXIDE 29 mmol/L (22-30); CHLORIDE 103 mmol/L (98-107); GLUCOSE 185 mg/dL (75-110); POTASSIUM 3.9 mmol/L (3.6-5.0); SODIUM 139.6 mmol/L (137-145)
[2017-10-25 06:22] LABS: FREE T4 (FREE THYROXINE) 1.59 ng/dL (0.78-2.19)
[2017-10-25 06:36] LABS: THYROID STIMULATING HORMONE 0.29 uIU/mL (0.47-4.68)
[2017-10-25] MEDS: FLUTICASONE/SALMETEROL DISKUS 250-50 MCG/DOSE IH SCH ×2 (09:17→21:27)
[2017-10-25] MEDS: GUAIFENESIN 600 MG TABLET.SA PO SCH ×2 (09:19→21:27)
[2017-10-25] MEDS: LISINOPRIL 5 MG TABLET PO SCH (09:19)
[2017-10-25] MEDS: AMLODIPINE BESYLATE 2.5 MG TABLET PO SCH ×2 (09:21→21:27)
[2017-10-25] MEDS: SALMETEROL XINAFOATE DISKUS 50 MCG/1 DOSE 28 DOSE IH SCH ×2 (09:21→21:27)
[2017-10-25] MEDS: TIOTROPIUM BROMIDE DPI 5 CAP/KIT (18 MCG/CAP) IH SCH (09:22)
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
--- NOTE | 2017-10-25 16:30 | PSYCHOLOGICAL NOTE ---
Psych Note - Psych Note Psych Note: Reason for consult: capacity evaluation Patient had a capacity evaluation done for this patient on 09/10/2017; recommendations are was follows: Impression: The Patient is a 72-year-old female who is a and retired. She has had numerous visits since 2011 with 2 in 2018 and 19 in 2017. She has multiple significant medical issues. Hospitalist recommended temporary physical rehabilitation placement and patient has been refusing. She has an exhaustive list of home medication and receives 2 Liters of Oxygen at home. She is unable to perform her own ADLs (bathing, dressing, cooking, medication administration) . Overall, results of the current evaluation revealed fair orientation to present and items of knowledge, concrete thinking patterns, poor memory, poor sequencing , poor organizational abilities, poor visuospatial abilities, good safety and problem solving and minimal ability to complete own ADLs. Her Head CT is suggestive of neurodegenerative processes as seen in dementia which will inevitably affect her already poor memory, poor organizational abilities, poor visuospatial capabilities, and problem solving/safety skills as she ages. Given patients numerous significant medical issues along with the level of neurodegeneration there is concern patient has increased chance of being victimized. Additionally, there is concern the neurodegeneration will interfere with patients ability to safely navigate her environment or make decisions that are in her best interest as well as make her vulnerable to undue influence. It is with a reasonable degree of medical and clinical certainty, the Patient would benefit from a responsible and reliable Guardian to manage her medical, financial, legal, and personal affairs. She would benefit from 24-hour supervision with round the clock staff given her poor memory, poor organizational, poor visuospatial abilities and minimal ability to address own ADLs. The following diagnoses are offered: DIAGNOSES: 1. 290.40 (F01.50) Major Vascular Neurocognitive Disorder, Probable, Without behavioral disturbance 2. COPD Exacerbation 3. CHF with left ventricular diastolic dysfunction NYHA class 1 4. GERD 5. HTN RECOMMENDATIONS: 1. A responsible and reliable Guardian is recommended to manage medical, financial, legal, and personal affairs. 2. Psychiatric consultation with a provider is recommended to manage behavioral symptoms that are often associated with dementia. 3. Neurological consultation with a provider is recommended since Head CT language suggest chronic neurodegenerative process which will worsen with age. 4. Driving privileges should be evaluated. 5. Patient would benefit from a structured environment with routine and 24- hour supervision by medical staff.
[2017-10-25] MEDS: INSULIN LISPRO 100 UNIT/ML 3 ML VIAL SUBCUT PRN ×2 (16:50→21:27)
[2017-10-26] MEDS: VANCOMYCIN HCL INJ 500 MG VIAL PO SCH ×4 (02:13→21:31)
[2017-10-26] MEDS: METHYLPREDNISOLONE INJ 125 MG/2 ML SDV IV SCH (02:14)
[2017-10-26] MEDS: LEVOTHYROXINE SODIUM 0.075 MG TABLET PO SCH (05:21)
[2017-10-26] MEDS: LANSOPRAZOLE 30 MG TAB.RAP.DR PO SCH (05:21)
[2017-10-26] MEDS: LEVALBUTEROL HCL NEB 1.25 MG/3 ML AMPUL NEB PRN ×2 (09:33→17:15)
[2017-10-26] MEDS ORDERED: METHYLPREDNISOLONE INJ 40 MG/1 ML SDV IV SCH (10:00)
[2017-10-26] MEDS ORDERED: PROMETHAZINE HCL INJ 25 MG/1 ML VIAL IV PRN (10:00)
[2017-10-26] MEDS: INSULIN LISPRO 100 UNIT/ML 3 ML VIAL SUBCUT PRN ×2 (10:08→14:08)
[2017-10-26] MEDS: TIOTROPIUM BROMIDE DPI 5 CAP/KIT (18 MCG/CAP) IH SCH (10:09)
[2017-10-26] MEDS: LISINOPRIL 5 MG TABLET PO SCH (10:09)
[2017-10-26] MEDS: GUAIFENESIN 600 MG TABLET.SA PO SCH ×2 (10:10→21:30)
[2017-10-26] MEDS: AMLODIPINE BESYLATE 2.5 MG TABLET PO SCH ×2 (10:10→21:31)
[2017-10-26] MEDS: SALMETEROL XINAFOATE DISKUS 50 MCG/1 DOSE 28 DOSE IH SCH ×2 (10:11→21:30)
[2017-10-26] MEDS: FLUTICASONE/SALMETEROL DISKUS 250-50 MCG/DOSE IH SCH ×2 (10:11→21:30)
--- NOTE | 2017-10-26 15:06 | PDOC PROGRESS REPORT ---
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 Now found to have c. diff stools. The patient is seen on morning rounds; she is found resting in bed comfortably on supplemental oxygen 2 L/min. She states that she is feeling much better today and requests to be discharged home. She denies chest pain, dyspnea, abdominal pain, nausea vomiting and diarrhea. She continues to have incontinent stools, however, per nursing they have begun to form of and are occurring less frequently. She is tolerating a regular diet. She states that she has not yet been out of bed with assistance. I attempted to discuss with the patient my recommendation that she be discharged to a [facility] facility. He was advised that there were concerns that her family members were not capable of providing the level of care that she requires. The patient became very agitated during this and told me that she would not speak to me about [facility] placement. The partner integration planner was updated on my recommendations, as well as the concerns raised by nursing, and the recommendations by psychiatry. Discharge planning informs me that they will contact APS. At this time, the patient is medically stable for discharge, however, she does not have a safe discharge plan. Reason For Visit: HYPOTENSION Physical Exam Vital Signs: Temp Pulse Resp BP Pulse Ox 98.2 F 101 H 17 146/68 H 96 10/26/17 11:07 10/26/17 11:07 10/26/17 11:07 10/26/17 11:07 10/26/17 11:07 Intake & Output 10/25/17 10/26/17 10/27/17 06:59 06:59 06:59 Intake Total 3472 1165 Output Total 150 Balance 3322 1165 General appearance: PRESENT: no acute distress, disheveled, hard of hearing, obese, well-developed, well-nourished Head exam: PRESENT: atraumatic, normocephalic Eye exam: PRESENT: conjunctiva pink, EOMI, PERRLA. ABSENT: scleral icterus Ear exam: PRESENT: normal external ear exam Mouth exam: PRESENT: moist, tongue midline Teeth exam: PRESENT: edentulous, poor dentation Neck exam: ABSENT: carotid bruit, JVD, lymphadenopathy, thyromegaly Respiratory exam: PRESENT: prolonged expiratory phas, symmetrical, unlabored, wheezes - Slight expiratory wheeze; improved from yesterday. ABSENT: rales, rhonchi Cardiovascular exam: PRESENT: RRR, +S1, +S2. ABSENT: diastolic murmur, rubs, systolic murmur Pulses: PRESENT: normal dorsalis pedis pul Vascular exam: PRESENT: normal capillary refill GI/Abdominal exam: PRESENT: normal bowel sounds, soft. ABSENT: distended, guarding, mass, organolmegaly, rebound, tenderness Rectal exam: PRESENT: deferred Extremities exam: PRESENT: full ROM. ABSENT: calf tenderness, clubbing, pedal edema Musculoskeletal exam: ABSENT: ambulatory - Patient refusing to get out of bed at this time. Neurological exam: PRESENT: alert, awake, oriented to person, oriented to place , oriented to time, CN II-XII grossly intact, other - Poor insight. ABSENT: oriented to situation, motor sensory deficit Psychiatric exam: PRESENT: agitated, appropriate affect, normal mood. ABSENT: homicidal ideation, suicidal ideation Skin exam: PRESENT: dry, intact, warm. ABSENT: cyanosis, rash Results Laboratory Results: 10/25/17 04:50 10/25/17 04:50 10/19/17 10/19/17 04:13 10:29 Troponin I 0.032 0.026 Impressions: Foot X-Ray 10/18/17 00:00 IMPRESSION: Cannot exclude fracture of the 4th proximal phalanx. Chest X-Ray 10/18/17 19:11 IMPRESSION: There is no acute cardiopulmonary disease. No interval change. Abdomen/Pelvis CT 10/23/17 00:00 IMPRESSION: No evidence of retroperitoneal hemorrhage. No acute findings. Chest CT 10/23/17 00:00 IMPRESSION: No evidence of hemorrhage. Small pleural effusions. Assessment & Plan - Diagnosis (1) C. difficile diarrhea Is this a current diagnosis for this admission?: Yes Plan: Nursing staff reports that the patient continues to have incontinent stools, however, they are beginning to form and are less frequent. Stool sample positive for C. difficile. Continue vancomycin 125 mg p.o. every 6 hours. Currently day 6 of 10. (2) GI bleed Qualifiers: GI bleed type/associated pathology: gastritis Gastritis type: acute gastritis Qualified Code(s): K29.01 - Acute gastritis with bleeding Is this a current diagnosis for this admission?: Yes Plan: Unclear etiology; likely associated with C. difficile infection/colitis. She was transfused 2 units packed red blood cells. Hemoglobin currently 9.8 Hemoccult positive on 10/22/17. CT scan of the chest abdomen and pelvis did not demonstrate evidence of acute bleed. Surgery performed EGD and colonoscopy; no evidence of active bleeding; did note diffuse colitis. Continue Protonix 40 mg IV twice daily. (3) CHF (congestive heart failure) Qualifiers: Heart failure type: unspecified Heart failure chronicity: chronic Qualified Code(s): I50.9 - Heart failure, unspecified Is this a current diagnosis for this admission?: Yes Plan: Cardiac enzymes were negative; no longer trending. Echocardiogram: preserved ejection fraction, mild to moderate diastolic dysfunction. The patient's home medications, lisinopril and amlodipine, are resumed. (4) Chronic respiratory failure Qualifiers: Respiratory failure complication: unspecified whether with hypoxia or hypercapnia Qualified Code(s): J96.10 - Chronic respiratory failure, unspecified whether with hypoxia or hypercapnia Is this a current diagnosis for this admission?: Yes Plan: Chronic respiratory failure secondary to COPD. Slight wheezing noted again today. Continue IV Solu-Medrol; will resume weaning steroids. Supplemental oxygen as needed to maintain oxygen saturations greater than 88% Continue the patient's home medication; Advair, Spiriva, and Serevent Mucinex twice daily. As needed nebulizer treatments. Incentive spirometry and flutter valve to bedside. (5) Hypotension Qualifiers: Hypotension type: unspecified hypotension type Qualified Code(s): I95.9 - Hypotension, unspecified Is this a current diagnosis for this admission?: Yes Plan: Improved; blood pressure is now 130s/70s. Hypotension likely secondary to volume depletion in setting of C. difficile colitis. Patient is now tolerating a regular diet. IV fluids have been discontinued to prevent fluid volume overload in patient with CHF. We will continue to monitor closely. (6) Right foot pain Is this a current diagnosis for this admission?: Yes Plan: Patient states that she has right foot pain; x-ray of right foot inconclusive for fracture of the fourth proximal phalanx. No bruising or swelling to the area. Patient is primarily immobile. Tylenol as needed for pain. Patient can wear orthopedic boot for comfort. (7) Small cell lung cancer Is this a current diagnosis for this admission?: Yes Plan: With brain metastasis, in remission per patient. (8) Tachycardia Is this a current diagnosis for this admission?: Yes Plan: Gradual improvement today; the patient has been persistently tachycardic in the low 100s since time of admission. This may be in part due to acute infection with C. difficile versus volume depletion. Additionally, the patient was receiving scheduled duo nebs with both albuterol and Xopenex available as needed. I have reduced the frequency of nebulizer treatments as this may have been causing tachycardia as a side effect. Serial troponins were negative and are no longer being trended. Echocardiogram as above. We will continue to monitor on continuous cardiac telemetry; patient currently in a sinus rhythm. Consider metoprolol if blood pressures allow. (9) Generalized weakness Is this a current diagnosis for this admission?: Yes Plan: The patient reports that she is primarily bedbound at home and uses bedside commode with assistance. Here in the hospital, she is refusing to get up to the chair or the bedside commode even with assistance due to fear of falling. Patient has been readmitted multiple times and I have concerns that she does not have as much of a support system at home as she alludes to. Recommend [facility] facility at discharge. (10) At risk for readmission to hospital Is this a current diagnosis for this admission?: Yes Plan: The patient is noted to have been admitted to the hospital 5 times since July of this year. She has had an additional 3 emergency department visits. She has an unclear home living situation with regard to family support; patient occasionally reports that her son and his girlfriend live with her versus them living nearby but checking on her frequently. Nursing has raised concerns that the son and girlfriend were asking about obtaining a power of civil rights attorney to gain access to the patient's banking accounts. The patient was also overheard to have a conversation with her friend stating that she (the patient) believe her son may have been cashing her checks. Appreciate psychiatry's assistance in evaluating the patient guarded to capacity and ability to care for herself at home. Per their note dated 10/25/17 ; psychiatry recommends that the patient obtain a responsible and reliable guardian to manage her medical, financial, legal, and personal affairs. She would benefit from 24-hour supervision with [id number] medical staff given her poor memory, poor organizational, poor visual spatial abilities and minimal ability to address her own ADLs. They also state that the patient's numerous significant medical issues and level of neurodegeneration place the patient at increased chance of victimization. Discharge planning is updated on psychiatry's recommendations. Strongly recommending APS referral and discharge to [facility] facility. - Time Time Spent with patient: 15-24 minutes Anticipated discharge: SNF - [facility] placement Within: when bed available
[2017-10-26] MEDS: METHYLPREDNISOLONE INJ 40 MG/1 ML SDV IV SCH (17:38)
[2017-10-27] MEDS: VANCOMYCIN HCL INJ 500 MG VIAL PO SCH ×4 (02:57→21:16)
[2017-10-27] MEDS: LANSOPRAZOLE 30 MG TAB.RAP.DR PO SCH (05:34)
[2017-10-27] MEDS: LEVOTHYROXINE SODIUM 0.075 MG TABLET PO SCH (05:34)
[2017-10-27] MEDS: METHYLPREDNISOLONE INJ 40 MG/1 ML SDV IV SCH ×2 (05:35→17:48)
[2017-10-27 06:39] LABS: HEMATOCRIT 32.7 % (36.0-47.0); MEAN CORPUSCULAR HEMOGLOBIN 31.9 pg (27.0-33.4); MEAN CORPUSCULAR HGB CONC 33.6 g/dL (32.0-36.0); MEAN CORPUSCULAR VOLUME 95 fl (80-97); RED BLOOD COUNT 3.44 10^6/uL (3.72-5.28); RED CELL DISTRIBUTION WIDTH 16.3 % (11.5-14.0); WHITE BLOOD COUNT 8.8 10^3/uL (4.0-10.5)
[2017-10-27 07:23] LABS: PLATELET COUNT 212 10^3/uL (150-450)
[2017-10-27] MEDS: LEVALBUTEROL HCL NEB 1.25 MG/3 ML AMPUL NEB PRN (08:57)
[2017-10-27] MEDS: AMLODIPINE BESYLATE 2.5 MG TABLET PO SCH ×2 (10:09→21:16)
[2017-10-27] MEDS: TIOTROPIUM BROMIDE DPI 5 CAP/KIT (18 MCG/CAP) IH SCH (10:09)
[2017-10-27] MEDS: LISINOPRIL 5 MG TABLET PO SCH (10:09)
[2017-10-27] MEDS: SALMETEROL XINAFOATE DISKUS 50 MCG/1 DOSE 28 DOSE IH SCH ×2 (10:10→21:16)
[2017-10-27] MEDS: GUAIFENESIN 600 MG TABLET.SA PO SCH ×2 (10:10→21:16)
[2017-10-27] MEDS: FLUTICASONE/SALMETEROL DISKUS 250-50 MCG/DOSE IH SCH ×2 (10:10→21:16)
[2017-10-27] MEDS: INSULIN LISPRO 100 UNIT/ML 3 ML VIAL SUBCUT PRN ×2 (12:53→22:47)
--- NOTE | 2017-10-27 17:11 | PDOC PROGRESS REPORT ---
Subjective Progress Note for:: 10/27/17 Subjective:: The patient is a 72-year-old female with a history of dementia, small cell lung cancer with brain metastasis (post chemoradiation, in remission per patient), chronic respiratory failure/COPD on home oxygen, CAD/CHF, and type 2 diabetes mellitus who was admitted on 10/18/17 for hypotension and suspected GI bleed. Now found to have c. diff stools. The patient is seen on morning rounds; she is found resting in bed comfortably on supplemental oxygen 2 L/min. She is sleeping when I enter the room and wakes briefly when I say her name but quickly falls back to sleep. Per nursing the patient was most of the morning and fully conversational. Additionally, nursing reports that the patient is now having formed stools. At this time, the patient is medically stable for discharge, however, she does not have a safe discharge plan. APS has been notified of recommendations for appointment of a guardian and placement at a jail facility with 20/02 care. Reason For Visit: HYPOTENSION Physical Exam Vital Signs: Temp Pulse Resp BP Pulse Ox 97.5 F 94 18 134/74 H 100 10/27/17 14:58 10/27/17 14:58 10/27/17 14:58 10/27/17 14:58 10/27/17 14:58 Intake & Output 10/26/17 10/27/17 10/28/17 06:59 06:59 06:59 Intake Total 1165 1271 Balance 1165 1271 General appearance: PRESENT: no acute distress, well-developed, well-nourished, other - Overweight Head exam: PRESENT: atraumatic, normocephalic Eye exam: PRESENT: conjunctiva pink, EOMI, PERRLA. ABSENT: scleral icterus Ear exam: PRESENT: normal external ear exam Mouth exam: PRESENT: moist, tongue midline Teeth exam: PRESENT: edentulous, poor dentation Neck exam: ABSENT: carotid bruit, JVD, lymphadenopathy, thyromegaly Respiratory exam: PRESENT: rhonchi, symmetrical, unlabored, other - Supplemental oxygen at 2 L/min. ABSENT: rales, wheezes Cardiovascular exam: PRESENT: RRR, +S1, +S2. ABSENT: diastolic murmur, rubs, systolic murmur Pulses: PRESENT: normal dorsalis pedis pul Vascular exam: PRESENT: normal capillary refill GI/Abdominal exam: PRESENT: normal bowel sounds, soft. ABSENT: distended, guarding, mass, organolmegaly, rebound, tenderness Rectal exam: PRESENT: deferred Extremities exam: PRESENT: full ROM. ABSENT: calf tenderness, clubbing, pedal edema Neurological exam: PRESENT: alert, awake, oriented to person, oriented to place , oriented to time, CN II-XII grossly intact, other - Fatigued. ABSENT: oriented to situation, motor sensory deficit Psychiatric exam: PRESENT: appropriate affect, normal mood. ABSENT: homicidal ideation, suicidal ideation Skin exam: PRESENT: dry, intact, warm. ABSENT: cyanosis, rash Results Laboratory Results: 10/27/17 05:44 10/25/17 04:50 10/27/17 05:44 WBC 8.8 RBC 3.44 L Hgb 11.0 L Hct 32.7 L MCV 95 MCH 31.9 MCHC 33.6 RDW 16.3 H Plt Count 212 10/19/17 10/19/17 04:13 10:29 Troponin I 0.032 0.026 Impressions: Foot X-Ray 10/18/17 00:00 IMPRESSION: Cannot exclude fracture of the 4th proximal phalanx. Chest X-Ray 10/18/17 19:11 IMPRESSION: There is no acute cardiopulmonary disease. No interval change. Abdomen/Pelvis CT 10/23/17 00:00 IMPRESSION: No evidence of retroperitoneal hemorrhage. No acute findings. Chest CT 10/23/17 00:00 IMPRESSION: No evidence of hemorrhage. Small pleural effusions. Assessment & Plan - Diagnosis (1) C. difficile diarrhea Is this a current diagnosis for this admission?: Yes Plan: Improved; nursing reports that she is now having formed stools. Stool sample positive for C. difficile. Continue vancomycin 125 mg p.o. every 6 hours. Currently day 7 of 10. (2) GI bleed Qualifiers: GI bleed type/associated pathology: gastritis Gastritis type: acute gastritis Qualified Code(s): K29.01 - Acute gastritis with bleeding Is this a current diagnosis for this admission?: Yes Plan: Resolved. Unclear etiology; likely associated with C. difficile infection/ colitis. She was transfused 2 units packed red blood cells. Hemoglobin currently 11.0 Hemoccult positive on 10/22/17. CT scan of the chest abdomen and pelvis did not demonstrate evidence of acute bleed. Surgery performed EGD and colonoscopy; no evidence of active bleeding; did note diffuse colitis. Continue Protonix 40 mg IV twice daily. (3) CHF (congestive heart failure) Qualifiers: Heart failure type: unspecified Heart failure chronicity: chronic Qualified Code(s): I50.9 - Heart failure, unspecified Is this a current diagnosis for this admission?: Yes Plan: Cardiac enzymes were negative; no longer trending. Echocardiogram: preserved ejection fraction, mild to moderate diastolic dysfunction. The patient's home medications, lisinopril and amlodipine, are resumed. (4) Chronic respiratory failure Qualifiers: Respiratory failure complication: unspecified whether with hypoxia or hypercapnia Qualified Code(s): J96.10 - Chronic respiratory failure, unspecified whether with hypoxia or hypercapnia Is this a current diagnosis for this admission?: Yes Plan: Chronic respiratory failure secondary to COPD. Continue IV Solu-Medrol; anticipate transitioning to p.o. prednisone tomorrow. Supplemental oxygen as needed to maintain oxygen saturations greater than 88% Continue the patient's home medication; Advair, Spiriva, and Serevent Mucinex twice daily. As needed nebulizer treatments. Incentive spirometry and flutter valve to bedside. (5) Hypotension Qualifiers: Hypotension type: unspecified hypotension type Qualified Code(s): I95.9 - Hypotension, unspecified Is this a current diagnosis for this admission?: Yes Plan: Resolved; patient's home antihypertensive medications have been resumed. (6) Right foot pain Is this a current diagnosis for this admission?: Yes Plan: Improved. Patient states that she has right foot pain. X-ray of right foot inconclusive for fracture of the fourth proximal phalanx. No bruising or swelling to the area. Patient is primarily immobile. Tylenol as needed for pain. Patient can wear orthopedic shoe for comfort. (7) Small cell lung cancer Is this a current diagnosis for this admission?: Yes Plan: With brain metastasis, in remission per patient. (8) Tachycardia Is this a current diagnosis for this admission?: Yes Plan: Continued improvement; the patient has been persistently tachycardic in the low 100s since time of admission. This may be in part due to acute infection with C. difficile versus volume depletion. Additionally, the patient was receiving scheduled duo nebs with both albuterol and Xopenex available as needed. I have reduced the frequency of nebulizer treatments as this may have been causing tachycardia as a side effect. Serial troponins were negative and are no longer being trended. Echocardiogram as above. We will continue to monitor on continuous cardiac telemetry; patient currently in a sinus rhythm. Consider metoprolol if blood pressures allow. (9) Generalized weakness Is this a current diagnosis for this admission?: Yes Plan: The patient reports that she is primarily bedbound at home and uses bedside commode with assistance. Here in the hospital, she is refusing to get up to the chair or the bedside commode even with assistance due to fear of falling. Patient has been readmitted multiple times and I have concerns that she does not have as much of a support system at home as she alludes to. Recommend jail facility at discharge. (10) At risk for readmission to hospital Is this a current diagnosis for this admission?: Yes Plan: The patient is noted to have been admitted to the hospital 5 times since July of this year. She has had an additional 3 emergency department visits. She has an unclear home living situation with regard to family support; patient occasionally reports that her son and his girlfriend live with her versus them living nearby but checking on her frequently. Nursing has raised concerns that the son and girlfriend were asking about obtaining a power of pharmacology teacher to gain access to the patient's banking accounts. The patient was also overheard to have a conversation with her friend stating that she (the patient) believe her son may have been cashing her checks. Appreciate psychiatry's assistance in evaluating the patient guarded to capacity and ability to care for herself at home. Per their note dated 10/25/17 ; psychiatry recommends that the patient obtain a responsible and reliable guardian to manage her medical, financial, legal, and personal affairs. She would benefit from 24-hour supervision with [id number] medical staff given her poor memory, poor organizational, poor visual spatial abilities and minimal ability to address her own ADLs. They also state that the patient's numerous significant medical issues and level of neurodegeneration place the patient at increased chance of victimization. Discharge planning is updated on psychiatry's recommendations. Strongly recommending APS referral and discharge to jail facility. - Time Time Spent with patient: 15-24 minutes Anticipated discharge: SNF - flight software test engineer placement
[2017-10-28] MEDS: VANCOMYCIN HCL INJ 500 MG VIAL PO SCH ×4 (04:09→20:52)
[2017-10-28] MEDS: LEVOTHYROXINE SODIUM 0.075 MG TABLET PO SCH (06:28)
[2017-10-28] MEDS: LANSOPRAZOLE 30 MG TAB.RAP.DR PO SCH (06:28)
[2017-10-28] MEDS: METHYLPREDNISOLONE INJ 40 MG/1 ML SDV IV SCH (06:28)
[2017-10-28] MEDS: TIOTROPIUM BROMIDE DPI 5 CAP/KIT (18 MCG/CAP) IH SCH (09:41)
[2017-10-28] MEDS: GUAIFENESIN 600 MG TABLET.SA PO SCH ×2 (09:41→22:43)
[2017-10-28] MEDS: LISINOPRIL 5 MG TABLET PO SCH (09:41)
[2017-10-28] MEDS: SALMETEROL XINAFOATE DISKUS 50 MCG/1 DOSE 28 DOSE IH SCH ×2 (09:42→22:43)
[2017-10-28] MEDS: FLUTICASONE/SALMETEROL DISKUS 250-50 MCG/DOSE IH SCH ×2 (09:42→22:42)
[2017-10-28] MEDS: AMLODIPINE BESYLATE 2.5 MG TABLET PO SCH ×2 (09:42→22:43)
[2017-10-28] MEDS: PREDNISONE 20 MG TABLET PO SCH (11:02)
[2017-10-28] MEDS: INSULIN LISPRO 100 UNIT/ML 3 ML VIAL SUBCUT PRN ×3 (12:30→22:43)
--- NOTE | 2017-10-28 13:50 | PDOC PROGRESS REPORT ---
Subjective Progress Note for:: 10/28/17 Subjective:: The patient is a 72-year-old female with a history of dementia, small cell lung cancer with brain metastasis (post chemoradiation, in remission per patient), chronic respiratory failure/COPD on home oxygen, CAD/CHF, and type 2 diabetes mellitus who was admitted on 10/18/17 for hypotension and suspected GI bleed. Now found to have c. diff stools. The patient is seen on morning rounds; she is found resting in bed comfortably on supplemental oxygen 2 L/min. she is sitting up eating her breakfast. She tells me that she feels well today. She denies fever, chills, chest pain, orthopnea, dyspnea, cough, abdominal pain, nausea vomiting and diarrhea. She asked to be discharged to home. However, when asked about her mobility, she does state that she is unwilling to get out of bed due to weakness and would appreciate working with PT/OT. Now having formed stools per nursing. At this time, the patient is medically stable for discharge, however, she does not have a safe discharge plan. APS has been notified of recommendations for appointment of a guardian and placement at a [facility] facility with 20/02 care. Reason For Visit: HYPOTENSION Physical Exam Vital Signs: Temp Pulse Resp BP Pulse Ox 98.4 F 93 19 143/68 H 98 10/28/17 10:54 10/28/17 10:54 10/28/17 10:54 10/28/17 10:54 10/28/17 10:54 Intake & Output 10/27/17 10/28/17 10/29/17 06:59 06:59 06:59 Intake Total 1271 981 Balance 1271 981 General appearance: PRESENT: no acute distress, well-developed, well-nourished, other - Overweight Head exam: PRESENT: atraumatic, normocephalic Eye exam: PRESENT: conjunctiva pink, EOMI, PERRLA. ABSENT: scleral icterus Ear exam: PRESENT: normal external ear exam Mouth exam: PRESENT: moist, tongue midline Teeth exam: PRESENT: poor dentation Neck exam: ABSENT: carotid bruit, JVD, lymphadenopathy, thyromegaly Respiratory exam: PRESENT: prolonged expiratory phas, rhonchi, symmetrical, unlabored, wheezes - Slight expiratory wheezing throughout. ABSENT: rales Cardiovascular exam: PRESENT: RRR, +S1, +S2. ABSENT: diastolic murmur, rubs, systolic murmur, tachycardia Pulses: PRESENT: normal dorsalis pedis pul Vascular exam: PRESENT: normal capillary refill GI/Abdominal exam: PRESENT: normal bowel sounds, soft. ABSENT: distended, guarding, mass, organolmegaly, rebound, tenderness Rectal exam: PRESENT: deferred Extremities exam: PRESENT: full ROM. ABSENT: calf tenderness, clubbing, pedal edema Neurological exam: PRESENT: alert, awake, oriented to person, oriented to place , oriented to time, oriented to situation, CN II-XII grossly intact. ABSENT: motor sensory deficit Psychiatric exam: PRESENT: appropriate affect, normal mood. ABSENT: homicidal ideation, suicidal ideation Skin exam: PRESENT: dry, intact, warm. ABSENT: cyanosis, rash Results Laboratory Results: 10/27/17 05:44 10/25/17 04:50 10/19/17 10/19/17 04:13 10:29 Troponin I 0.032 0.026 Impressions: Foot X-Ray 10/18/17 00:00 IMPRESSION: Cannot exclude fracture of the 4th proximal phalanx. Chest X-Ray 10/18/17 19:11 IMPRESSION: There is no acute cardiopulmonary disease. No interval change. Abdomen/Pelvis CT 10/23/17 00:00 IMPRESSION: No evidence of retroperitoneal hemorrhage. No acute findings. Chest CT 10/23/17 00:00 IMPRESSION: No evidence of hemorrhage. Small pleural effusions. Assessment & Plan - Diagnosis (1) C. difficile diarrhea Is this a current diagnosis for this admission?: Yes Plan: Improved; nursing reports that she is now having formed stools. Stool sample positive for C. difficile. Continue vancomycin 125 mg p.o. every 6 hours. Currently day 8 of 10. (2) GI bleed Qualifiers: GI bleed type/associated pathology: gastritis Gastritis type: acute gastritis Qualified Code(s): K29.01 - Acute gastritis with bleeding Is this a current diagnosis for this admission?: Yes Plan: Resolved. Unclear etiology; likely associated with C. difficile infection/ colitis. She was transfused 2 units packed red blood cells. Hemoglobin currently 11.0 Hemoccult positive on 10/22/17. CT scan of the chest abdomen and pelvis did not demonstrate evidence of acute bleed. Surgery performed EGD and colonoscopy; no evidence of active bleeding; did note diffuse colitis. Will transition to po Prevacid today. (3) CHF (congestive heart failure) Qualifiers: Heart failure type: unspecified Heart failure chronicity: chronic Qualified Code(s): I50.9 - Heart failure, unspecified Is this a current diagnosis for this admission?: Yes Plan: Cardiac enzymes were negative; no longer trending. Echocardiogram: preserved ejection fraction, mild to moderate diastolic dysfunction. The patient's home medications, lisinopril and amlodipine, are resumed. (4) Chronic respiratory failure Qualifiers: Respiratory failure complication: unspecified whether with hypoxia or hypercapnia Qualified Code(s): J96.10 - Chronic respiratory failure, unspecified whether with hypoxia or hypercapnia Is this a current diagnosis for this admission?: Yes Plan: Chronic respiratory failure secondary to COPD. Transitioned to p.o prednisone today. Supplemental oxygen as needed to maintain oxygen saturations greater than 88% Continue the patient's home medication; Advair, Spiriva, and Serevent. I have added Daliresp for COPD and chronic bronchitis resulting in multiple readmissions for COPD exacerbations. Mucinex twice daily. As needed nebulizer treatments. Incentive spirometry and flutter valve to bedside. (5) Hypotension Qualifiers: Hypotension type: unspecified hypotension type Qualified Code(s): I95.9 - Hypotension, unspecified Is this a current diagnosis for this admission?: Yes Plan: Resolved; patient's home antihypertensive medications have been resumed. (6) Right foot pain Is this a current diagnosis for this admission?: Yes Plan: Improved. Patient states that she has right foot pain. X-ray of right foot inconclusive for fracture of the fourth proximal phalanx. No bruising or swelling to the area. Patient is primarily immobile. Tylenol as needed for pain. Patient can wear orthopedic shoe for comfort. (7) Small cell lung cancer Is this a current diagnosis for this admission?: Yes Plan: With brain metastasis, in remission per patient. (8) Tachycardia Is this a current diagnosis for this admission?: Yes Plan: Continued improvement; likely due to acute infection with C. difficile versus volume depletion. Serial troponins were negative and are no longer being trended. Echocardiogram as above. We will continue to monitor on continuous cardiac telemetry; patient currently in a sinus rhythm. Consider metoprolol if blood pressures allow. (9) Generalized weakness Is this a current diagnosis for this admission?: Yes Plan: The patient reports that she is primarily bedbound at home and uses bedside commode with assistance. Here in the hospital, she is refusing to get up to the chair or the bedside commode even with assistance due to fear of falling. Patient has been readmitted multiple times and I have concerns that she does not have as much of a support system at home as she alludes to. PT/OT have been consulted. Pt to get out of bed three times daily for meals. Recommend [facility] facility at discharge. (10) At risk for readmission to hospital Is this a current diagnosis for this admission?: Yes Plan: The patient is noted to have been admitted to the hospital 5 times since July of this year. She has had an additional 3 emergency department visits. She has an unclear home living situation with regard to family support; patient occasionally reports that her son and his girlfriend live with her versus them living nearby but checking on her frequently. Nursing has raised concerns that the son and girlfriend were asking about obtaining a power of attorney at law to gain access to the patient's banking accounts. The patient was also overheard to have a conversation with her friend stating that she (the patient) believe her son may have been cashing her checks. Appreciate psychiatry's assistance in evaluating the patient guarded to capacity and ability to care for herself at home. Per their note dated 10/25/17 ; psychiatry recommends that the patient obtain a responsible and reliable guardian to manage her medical, financial, legal, and personal affairs. She would benefit from 24-hour supervision with [id number] medical staff given her poor memory, poor organizational, poor visual spatial abilities and minimal ability to address her own ADLs. They also state that the patient's numerous significant medical issues and level of neurodegeneration place the patient at increased chance of victimization. Discharge planning is updated on psychiatry's recommendations. Strongly recommending APS referral and discharge to [facility] facility. - Time Time Spent with patient: 15-24 minutes Anticipated discharge: SNF - long-term care Within: when bed available
[2017-10-28] MEDS ORDERED: VANCOMYCIN HCL INJ 500 MG VIAL ONE ×2 (17:19)
[2017-10-29] MEDS: VANCOMYCIN HCL INJ 500 MG VIAL PO SCH ×4 (04:03→22:22)
[2017-10-29] MEDS: LANSOPRAZOLE 30 MG TAB.RAP.DR PO SCH (06:10)
[2017-10-29] MEDS: LEVOTHYROXINE SODIUM 0.075 MG TABLET PO SCH (06:10)
[2017-10-29] MEDS: GUAIFENESIN 600 MG TABLET.SA PO SCH ×2 (11:33→22:22)
[2017-10-29] MEDS: LISINOPRIL 5 MG TABLET PO SCH (11:34)
[2017-10-29] MEDS: PREDNISONE 20 MG TABLET PO SCH (11:34)
[2017-10-29] MEDS: FLUTICASONE/SALMETEROL DISKUS 250-50 MCG/DOSE IH SCH ×2 (11:35→22:22)
[2017-10-29] MEDS: SALMETEROL XINAFOATE DISKUS 50 MCG/1 DOSE 28 DOSE IH SCH ×2 (11:35→22:22)
[2017-10-29] MEDS: ROFLUMILAST 500 MCG TABLET PO SCH (11:45)
[2017-10-29] MEDS: AMLODIPINE BESYLATE 2.5 MG TABLET PO SCH ×2 (11:46→22:22)
[2017-10-29] MEDS: TIOTROPIUM BROMIDE DPI 5 CAP/KIT (18 MCG/CAP) IH SCH (12:22)
--- NOTE | 2017-10-29 14:20 | PDOC PROGRESS REPORT ---
Subjective Progress Note for:: 10/29/17 Subjective:: The patient is a 72-year-old female with a history of dementia, small cell lung cancer with brain metastasis (post chemoradiation, in remission per patient), chronic respiratory failure/COPD on home oxygen, CAD/CHF, and type 2 diabetes mellitus who was admitted on 10/18/17 for hypotension and suspected GI bleed. Now found to have c. diff stools. The patient is seen on morning rounds; she is found resting in bed comfortably on supplemental oxygen 2 L/min. She tells me that she feels fine today and is ready to go home. She again states that she is unwilling to get out of bed due to weakness and fear of falling. She agrees to work with PT/OT. Now having formed stools per nursing. At this time, the patient is medically stable for discharge, however, she does not have a safe discharge plan. APS has been notified of recommendations for appointment of a guardian and placement at a [facility] facility with 20/02 care. Reason For Visit: HYPOTENSION Physical Exam Vital Signs: Temp Pulse Resp BP Pulse Ox 98.4 F 93 17 122/62 100 10/29/17 10:27 10/29/17 10:27 10/29/17 10:27 10/29/17 10:27 10/29/17 10:27 Intake & Output 10/28/17 10/29/17 10/30/17 06:59 06:59 06:59 Intake Total 981 1221 Balance 981 1221 General appearance: PRESENT: no acute distress, obese, well-developed, well- nourished Head exam: PRESENT: atraumatic, normocephalic Eye exam: PRESENT: conjunctiva pink, EOMI, PERRLA. ABSENT: scleral icterus Ear exam: PRESENT: normal external ear exam Mouth exam: PRESENT: moist, tongue midline Neck exam: ABSENT: carotid bruit, JVD, lymphadenopathy, thyromegaly Respiratory exam: PRESENT: rhonchi - slight, improved with cough, symmetrical, unlabored, other - Supplemental oxygen via nasal cannula. ABSENT: rales, wheezes Cardiovascular exam: PRESENT: RRR, +S1, +S2. ABSENT: diastolic murmur, rubs, systolic murmur Pulses: PRESENT: normal dorsalis pedis pul Vascular exam: PRESENT: normal capillary refill GI/Abdominal exam: PRESENT: normal bowel sounds, soft. ABSENT: distended, guarding, mass, organolmegaly, rebound, tenderness Rectal exam: PRESENT: deferred Extremities exam: PRESENT: full ROM. ABSENT: calf tenderness, clubbing, pedal edema Neurological exam: PRESENT: alert, awake, oriented to person, oriented to place , CN II-XII grossly intact. ABSENT: oriented to time, oriented to situation, motor sensory deficit Psychiatric exam: PRESENT: appropriate affect, normal mood. ABSENT: homicidal ideation, suicidal ideation Skin exam: PRESENT: dry, intact, warm. ABSENT: cyanosis, rash Results Laboratory Results: 10/27/17 05:44 10/25/17 04:50 10/19/17 10/19/17 04:13 10:29 Troponin I 0.032 0.026 Impressions: Foot X-Ray 10/18/17 00:00 IMPRESSION: Cannot exclude fracture of the 4th proximal phalanx. Chest X-Ray 10/18/17 19:11 IMPRESSION: There is no acute cardiopulmonary disease. No interval change. Abdomen/Pelvis CT 10/23/17 00:00 IMPRESSION: No evidence of retroperitoneal hemorrhage. No acute findings. Chest CT 10/23/17 00:00 IMPRESSION: No evidence of hemorrhage. Small pleural effusions. Assessment & Plan - Diagnosis (1) C. difficile diarrhea Is this a current diagnosis for this admission?: Yes Plan: Improved; nursing reports that she is now having formed stools. Stool sample positive for C. difficile. Continue vancomycin 125 mg p.o. every 6 hours. Currently day 9 of 10. (2) GI bleed Qualifiers: GI bleed type/associated pathology: gastritis Gastritis type: acute gastritis Qualified Code(s): K29.01 - Acute gastritis with bleeding Is this a current diagnosis for this admission?: Yes Plan: Resolved. Unclear etiology; likely associated with C. difficile infection/ colitis. She was transfused 2 units packed red blood cells. Hemoglobin currently 11.0 Hemoccult positive on 10/22/17. CT scan of the chest abdomen and pelvis did not demonstrate evidence of acute bleed. Surgery performed EGD and colonoscopy; no evidence of active bleeding; did note diffuse colitis. Continue Prevacid. (3) CHF (congestive heart failure) Qualifiers: Heart failure type: unspecified Heart failure chronicity: chronic Qualified Code(s): I50.9 - Heart failure, unspecified Is this a current diagnosis for this admission?: Yes Plan: Cardiac enzymes were negative; no longer trending. Echocardiogram: preserved ejection fraction, mild to moderate diastolic dysfunction. The patient's home medications, lisinopril and amlodipine, are resumed. (4) Chronic respiratory failure Qualifiers: Respiratory failure complication: unspecified whether with hypoxia or hypercapnia Qualified Code(s): J96.10 - Chronic respiratory failure, unspecified whether with hypoxia or hypercapnia Is this a current diagnosis for this admission?: Yes Plan: Chronic respiratory failure secondary to COPD. Begin weaning p.o. prednisone. Supplemental oxygen as needed to maintain oxygen saturations greater than 88% Continue the patient's home medication; Advair, Spiriva, and Serevent. I have added Daliresp for COPD and chronic bronchitis resulting in multiple readmissions for COPD exacerbations. Mucinex twice daily. As needed nebulizer treatments. Incentive spirometry and flutter valve to bedside. (5) Hypotension Qualifiers: Hypotension type: unspecified hypotension type Qualified Code(s): I95.9 - Hypotension, unspecified Is this a current diagnosis for this admission?: Yes Plan: Resolved; patient's home antihypertensive medications have been resumed. (6) Right foot pain Is this a current diagnosis for this admission?: Yes Plan: Improved. Patient states that she has right foot pain. X-ray of right foot inconclusive for fracture of the fourth proximal phalanx. No bruising or swelling to the area. Patient is primarily immobile. Tylenol as needed for pain. (7) Small cell lung cancer Is this a current diagnosis for this admission?: Yes Plan: With brain metastasis, in remission per patient. (8) Tachycardia Is this a current diagnosis for this admission?: Yes Plan: Resolved; likely due to acute infection with C. difficile versus volume depletion. Serial troponins were negative and are no longer being trended. Echocardiogram as above. We will continue to monitor on continuous cardiac telemetry; patient currently in a sinus rhythm. (9) Generalized weakness Is this a current diagnosis for this admission?: Yes Plan: The patient reports that she is primarily bedbound at home and uses bedside commode with assistance. Here in the hospital, she is refusing to get up to the chair or the bedside commode even with assistance due to fear of falling. Patient has been readmitted multiple times and I have concerns that she does not have as much of a support system at home as she alludes to. PT/OT have been consulted. Pt to get out of bed three times daily for meals. Recommend [facility] facility at discharge. (10) At risk for readmission to hospital Is this a current diagnosis for this admission?: Yes Plan: The patient is noted to have been admitted to the hospital 5 times since July of this year. She has had an additional 3 emergency department visits. She has an unclear home living situation with regard to family support; patient occasionally reports that her son and his girlfriend live with her versus them living nearby but checking on her frequently. Nursing has raised concerns that the son and girlfriend were asking about obtaining a power of ip [employer] transactions attorney to gain access to the patient's banking accounts. The patient was also overheard to have a conversation with her friend stating that she (the patient) believes her son may have been cashing her checks. Appreciate psychiatry's assistance in evaluating the patient's capacity and ability to care for herself at home. Per their note dated 10/25/17; psychiatry recommends that the patient obtain a responsible and reliable guardian to manage her medical, financial, legal, and personal affairs. She would benefit from 24-hour supervision with [id number] medical staff given her poor memory, poor organizational, poor visual spatial abilities and minimal ability to address her own ADLs. They also state that the patient's numerous significant medical issues and level of neurodegeneration place the patient at increased chance of victimization. Discharge planning is updated on psychiatry's recommendations. APS referral has been initiated. Discharge to [facility] facility when bed is available. - Time Time Spent with patient: 15-24 minutes Medications reviewed and adjusted accordingly: Yes Anticipated discharge: SNF - LTC Within: when bed available
[2017-10-29] MEDS: INSULIN LISPRO 100 UNIT/ML 3 ML VIAL SUBCUT PRN ×2 (17:43→23:22)
[2017-10-30] MEDS: LANSOPRAZOLE 30 MG TAB.RAP.DR PO SCH (06:51)
[2017-10-30] MEDS: LEVOTHYROXINE SODIUM 0.075 MG TABLET PO SCH (06:51)
[2017-10-30] MEDS: VANCOMYCIN HCL INJ 500 MG VIAL PO SCH ×4 (07:02→20:12)
[2017-10-30] MEDS: AMLODIPINE BESYLATE 2.5 MG TABLET PO SCH ×2 (10:08→22:52)
[2017-10-30] MEDS: PREDNISONE 20 MG TABLET PO SCH (10:08)
[2017-10-30] MEDS: TIOTROPIUM BROMIDE DPI 5 CAP/KIT (18 MCG/CAP) IH SCH (10:08)
[2017-10-30] MEDS: ROFLUMILAST 500 MCG TABLET PO SCH (10:08)
[2017-10-30] MEDS: SALMETEROL XINAFOATE DISKUS 50 MCG/1 DOSE 28 DOSE IH SCH ×2 (10:08→22:52)
[2017-10-30] MEDS: GUAIFENESIN 600 MG TABLET.SA PO SCH ×2 (10:08→22:52)
[2017-10-30] MEDS: LISINOPRIL 5 MG TABLET PO SCH (10:08)
[2017-10-30] MEDS: FLUTICASONE/SALMETEROL DISKUS 250-50 MCG/DOSE IH SCH ×2 (10:08→22:52)
--- NOTE | 2017-10-30 13:38 | PDOC PROGRESS REPORT ---
Subjective Progress Note for:: 10/30/17 Subjective:: The patient is a 72-year-old female with a history of dementia, small cell lung cancer with brain metastasis (post chemoradiation, in remission per patient), chronic respiratory failure/COPD on home oxygen, CAD/CHF, and type 2 diabetes mellitus who was admitted on 10/18/17 for hypotension and suspected GI bleed. Now found to have c. diff stools. The patient is seen on morning rounds; she is found resting in bed comfortably on supplemental oxygen 2 L/min. She states that she is going home today. She tells me that she is calling her son and that he is bringing her wheelchair. She states she is leaving with or without my recommendation. She is gently told that my recommendations are for her to go to a retirement facility for continued care. I advised her that I have concerns that she is not receiving enough care at home which is contributing to her frequent readmissions. The patient quickly becomes very agitated and tells me that she does not want to speak with me any further. She does consent to a brief assessment. At this time, the patient is medically stable for discharge, however, she does not have a safe discharge plan. APS has been notified of recommendations for appointment of a guardian and placement at a retirement facility with 20/02 care. Reason For Visit: HYPOTENSION Physical Exam Vital Signs: Temp Pulse Resp BP Pulse Ox 97.7 F 113 H 18 137/69 H 97 10/30/17 10:53 10/30/17 10:53 10/30/17 10:53 10/30/17 10:53 10/30/17 10:53 Intake & Output 10/29/17 10/30/17 10/31/17 06:59 06:59 06:59 Intake Total 1221 1230 Balance 1221 1230 Weight 98 kg General appearance: PRESENT: no acute distress, disheveled, obese, well- developed, well-nourished Head exam: PRESENT: atraumatic, normocephalic Eye exam: PRESENT: conjunctiva pink, EOMI, PERRLA. ABSENT: scleral icterus Ear exam: PRESENT: normal external ear exam Mouth exam: PRESENT: moist, tongue midline Neck exam: ABSENT: carotid bruit, JVD, lymphadenopathy, thyromegaly Respiratory exam: PRESENT: clear to auscultation jeff, symmetrical, unlabored. ABSENT: rales, rhonchi, wheezes Cardiovascular exam: PRESENT: RRR, +S1, +S2. ABSENT: diastolic murmur, rubs, systolic murmur Pulses: PRESENT: normal dorsalis pedis pul Vascular exam: PRESENT: normal capillary refill GI/Abdominal exam: PRESENT: normal bowel sounds, soft. ABSENT: distended, guarding, mass, organolmegaly, rebound, tenderness Rectal exam: PRESENT: deferred Extremities exam: PRESENT: full ROM. ABSENT: calf tenderness, clubbing, pedal edema Neurological exam: PRESENT: alert, awake, oriented to person, oriented to place , oriented to time, oriented to situation, CN II-XII grossly intact. ABSENT: motor sensory deficit Psychiatric exam: PRESENT: agitated, appropriate affect, normal mood. ABSENT: homicidal ideation, suicidal ideation Skin exam: PRESENT: dry, intact, warm. ABSENT: cyanosis, rash Results Laboratory Results: 10/27/17 05:44 10/25/17 04:50 10/19/17 10/19/17 04:13 10:29 Troponin I 0.032 0.026 Impressions: Foot X-Ray 10/18/17 00:00 IMPRESSION: Cannot exclude fracture of the 4th proximal phalanx. Chest X-Ray 10/18/17 19:11 IMPRESSION: There is no acute cardiopulmonary disease. No interval change. Abdomen/Pelvis CT 10/23/17 00:00 IMPRESSION: No evidence of retroperitoneal hemorrhage. No acute findings. Chest CT 10/23/17 00:00 IMPRESSION: No evidence of hemorrhage. Small pleural effusions. Assessment & Plan - Diagnosis (1) C. difficile diarrhea Is this a current diagnosis for this admission?: Yes Plan: Improved; nursing reports that she is intermittently having loose stools. Stool sample positive for C. difficile. Continue vancomycin 125 mg p.o. every 6 hours. Currently day 10 of 10. We will provide lactobacillus twice daily. (2) GI bleed Qualifiers: GI bleed type/associated pathology: gastritis Gastritis type: acute gastritis Qualified Code(s): K29.01 - Acute gastritis with bleeding Is this a current diagnosis for this admission?: Yes Plan: Resolved. Unclear etiology; likely associated with C. difficile infection/ colitis. She was transfused 2 units packed red blood cells. Hemoglobin currently 11.0 Hemoccult positive on 10/22/17. CT scan of the chest abdomen and pelvis did not demonstrate evidence of acute bleed. Surgery performed EGD and colonoscopy; no evidence of active bleeding, did note diffuse colitis. Continue Prevacid. (3) CHF (congestive heart failure) Qualifiers: Heart failure type: unspecified Heart failure chronicity: chronic Qualified Code(s): I50.9 - Heart failure, unspecified Is this a current diagnosis for this admission?: Yes Plan: Stable; without exacerbation. Cardiac enzymes were negative; no longer trending. Echocardiogram: preserved ejection fraction, mild to moderate diastolic dysfunction. The patient's home medications, lisinopril and amlodipine, are continued. (4) Chronic respiratory failure Qualifiers: Respiratory failure complication: unspecified whether with hypoxia or hypercapnia Qualified Code(s): J96.10 - Chronic respiratory failure, unspecified whether with hypoxia or hypercapnia Is this a current diagnosis for this admission?: Yes Plan: Chronic respiratory failure with hypoxia secondary to COPD. Begin weaning p.o. prednisone. Supplemental oxygen as needed to maintain oxygen saturations greater than 88% Continue the patient's home medication; Advair, Spiriva, and Serevent. I have added Daliresp for COPD and chronic bronchitis resulting in multiple readmissions for COPD exacerbations. Mucinex twice daily. As needed nebulizer treatments. Incentive spirometry and flutter valve to bedside. (5) Hypotension Qualifiers: Hypotension type: unspecified hypotension type Qualified Code(s): I95.9 - Hypotension, unspecified Is this a current diagnosis for this admission?: Yes Plan: Resolved; patient's home antihypertensive medications have been resumed. (6) Right foot pain Is this a current diagnosis for this admission?: Yes Plan: Improved. Patient states that she has right foot pain. X-ray of right foot inconclusive for fracture of the fourth proximal phalanx. No bruising or swelling to the area. Patient is primarily immobile. Tylenol as needed for pain. (7) Small cell lung cancer Is this a current diagnosis for this admission?: Yes Plan: With brain metastasis, in remission per patient. (8) Tachycardia Is this a current diagnosis for this admission?: Yes Plan: Resolved; likely due to acute infection with C. difficile versus volume depletion. Serial troponins were negative and are no longer being trended. Echocardiogram as above. We will continue to monitor on continuous cardiac telemetry; patient currently in a sinus rhythm. (9) Generalized weakness Is this a current diagnosis for this admission?: Yes Plan: The patient reports that she is primarily bedbound at home and uses bedside commode with assistance. Here in the hospital, she is refusing to get up to the chair or the bedside commode even with assistance due to fear of falling. Patient has been readmitted multiple times and I have concerns that she does not have as much of a support system at home as she alludes to. PT/OT have been consulted. Pt to get out of bed three times daily for meals. Recommend retirement facility at discharge. (10) At risk for readmission to hospital Is this a current diagnosis for this admission?: Yes Plan: The patient is noted to have been admitted to the hospital 5 times since July of this year. She has had an additional 3 emergency department visits. She has an unclear home living situation with regard to family support; patient occasionally reports that her son and his girlfriend live with her versus them living nearby but checking on her frequently. Nursing has raised concerns that the son and girlfriend were asking about obtaining a power of grain elevator man to gain access to the patient's banking accounts. The patient was also overheard to have a conversation with her friend stating that she (the patient) believes her son may have been cashing her checks. Appreciate psychiatry's assistance in evaluating the patient's capacity and ability to care for herself at home. Per their note dated 10/25/17; psychiatry recommends that the patient obtain a responsible and reliable guardian to manage her medical, financial, legal, and personal affairs. She would benefit from 24-hour supervision with [id number] medical staff given her poor memory, poor organizational, poor visual spatial abilities and minimal ability to address her own ADLs. They also state that the patient's numerous significant medical issues and level of neurodegeneration place the patient at increased chance of victimization. Discharge planning is updated on psychiatry's recommendations. Spoke with APS, Heather Kong, today and advised her of concerns. She is opening a case and will visit with the patient this afternoon. Discharge to retirement facility when bed is available. - Time Time Spent with patient: 25-34 minutes Medications reviewed and adjusted accordingly: Yes Anticipated discharge: SNF - Long-term placement Within: when bed available
[2017-10-30] MEDS: INSULIN LISPRO 100 UNIT/ML 3 ML VIAL SUBCUT PRN ×2 (17:36→22:52)
[2017-10-30] MEDS: LACTOBACILLUS ACIDOPHILUS 250 MG TAB PO SCH (17:36)
[2017-10-31] MEDS: VANCOMYCIN HCL INJ 500 MG VIAL PO SCH (06:30)
[2017-10-31] MEDS: LANSOPRAZOLE 30 MG TAB.RAP.DR PO SCH (06:31)
[2017-10-31] MEDS: LEVOTHYROXINE SODIUM 0.075 MG TABLET PO SCH (06:31)
[2017-10-31] MEDS: PREDNISONE 20 MG TABLET PO SCH (11:03)
[2017-10-31] MEDS: SALMETEROL XINAFOATE DISKUS 50 MCG/1 DOSE 28 DOSE IH SCH ×2 (11:03→21:55)
[2017-10-31] MEDS: FLUTICASONE/SALMETEROL DISKUS 250-50 MCG/DOSE IH SCH ×2 (11:03→21:54)
[2017-10-31] MEDS: AMLODIPINE BESYLATE 2.5 MG TABLET PO SCH ×2 (11:04→21:54)
[2017-10-31] MEDS: GUAIFENESIN 600 MG TABLET.SA PO SCH ×2 (11:04→21:54)
[2017-10-31] MEDS: LACTOBACILLUS ACIDOPHILUS 250 MG TAB PO SCH ×2 (11:04→17:55)
[2017-10-31] MEDS: TIOTROPIUM BROMIDE DPI 5 CAP/KIT (18 MCG/CAP) IH SCH (11:04)
[2017-10-31] MEDS: ROFLUMILAST 500 MCG TABLET PO SCH (11:04)
[2017-10-31] MEDS: LISINOPRIL 5 MG TABLET PO SCH (11:04)
--- NOTE | 2017-10-31 16:03 | PDOC PROGRESS REPORT ---
Subjective Progress Note for:: 10/31/17 Subjective:: TRENTON MCCOY is a 72 year old female who is well known to the hospitalist service. The patient was sent to the emergency department from her primary care physician's office for suspected GI bleed and HYPOtension. +C.difficile. The patient also complained of R foot pain. PMH includes dementia, small cell lung cancer with brain metastasis (post chemoradiation, in remission per patient ), chronic respiratory failure/COPD on home oxygen, CAD/CHF, and type 2 DM. The patient was seen this morning on rounds, she is found resting comfortably in bed on supplemental oxygen 2 L/min. The patient states that her son is going to pick her up today and take her home. It was explained to the patient that she will be going to an acute rehab facility. This has been explained to the patient multiple times over the last few days. The patient is medically stable for discharge, however she does not have a safe discharge plan. APS has been notified of recommendations for appointment of a guardian and placement of [facility] facility with 24/7 care. APS is requesting an affidavit of competency. Dr. Stewart (psychiatry) was contacted and is currently working on this. Reason For Visit: HYPOTENSION Physical Exam Vital Signs: Temp Pulse Resp BP Pulse Ox 98.5 F 97 19 110/50 L 99 10/31/17 11:14 10/31/17 11:14 10/31/17 11:14 10/31/17 11:14 10/31/17 11:14 Intake & Output 10/30/17 10/31/17 11/01/17 06:59 06:59 06:59 Intake Total 1230 1184 Balance 1230 1184 Weight 98 kg 91.7 kg General appearance: PRESENT: no acute distress, well-developed, well-nourished Head exam: PRESENT: atraumatic, normocephalic Eye exam: PRESENT: conjunctiva pink, PERRLA Mouth exam: PRESENT: moist, tongue midline Neck exam: PRESENT: full ROM Respiratory exam: PRESENT: clear to auscultation jeff, symmetrical, unlabored. ABSENT: rales, rhonchi, wheezes Cardiovascular exam: PRESENT: +S1, +S2 Pulses: PRESENT: normal radial pulses, normal dorsalis pedis pul Vascular exam: PRESENT: normal capillary refill GI/Abdominal exam: PRESENT: normal bowel sounds, soft. ABSENT: tenderness Rectal exam: PRESENT: deferred Extremities exam: PRESENT: full ROM Musculoskeletal exam: PRESENT: ambulatory - With assistance, full ROM Neurological exam: PRESENT: alert, awake, oriented to person, oriented to place , oriented to time. ABSENT: oriented to situation Psychiatric exam: PRESENT: appropriate affect, normal mood Skin exam: PRESENT: dry, intact, normal color, warm Results Laboratory Results: 10/27/17 05:44 10/25/17 04:50 10/19/17 10/19/17 04:13 10:29 Troponin I 0.032 0.026 Impressions: Foot X-Ray 10/18/17 00:00 IMPRESSION: Cannot exclude fracture of the 4th proximal phalanx. Chest X-Ray 10/18/17 19:11 IMPRESSION: There is no acute cardiopulmonary disease. No interval change. Abdomen/Pelvis CT 10/23/17 00:00 IMPRESSION: No evidence of retroperitoneal hemorrhage. No acute findings. Chest CT 10/23/17 00:00 IMPRESSION: No evidence of hemorrhage. Small pleural effusions. Status: Imported from PACS Assessment & Plan - Diagnosis (1) C. difficile diarrhea Is this a current diagnosis for this admission?: Yes Plan: Nursing staff reports the patient has been intermittently experiencing episodes of loose stool. Stool sample positive for C. difficile Completed course of oral vancomycin. Continue lactobacillus twice daily. (2) GI bleed Qualifiers: GI bleed type/associated pathology: gastritis Gastritis type: acute gastritis Qualified Code(s): K29.01 - Acute gastritis with bleeding Is this a current diagnosis for this admission?: Yes Plan: Resolved Unclear etiology Likely associated with C. difficile infection/colitis Initial hemoccult NEGATIVE (10/18) repeat hemoccult POSITIVE (10/22) Transfuse 2 units PRBCs. Hemoglobin currently>11.0 Surgery performed EGD and colonoscopy - no evidence of bleeding CT Scan chest/abd/pelvis did not demonstrate evidence of acute bleed Continue Prevacid p.o. (3) CHF (congestive heart failure) Qualifiers: Heart failure type: unspecified Heart failure chronicity: chronic Qualified Code(s): I50.9 - Heart failure, unspecified Is this a current diagnosis for this admission?: Yes Plan: Stable, without exacerbation Cardiac enzymes negative, no longer trending. Echocardiogram normal, could not assess LVEF, mild MR, mild pulmonary HYPERtension, mild to moderate diastolic dysfunction. Will resume home lisinopril and amlodipine (4) Chronic respiratory failure Qualifiers: Respiratory failure complication: unspecified whether with hypoxia or hypercapnia Qualified Code(s): J96.10 - Chronic respiratory failure, unspecified whether with hypoxia or hypercapnia Is this a current diagnosis for this admission?: Yes Plan: Chronic respiratory failure with hypoxia secondary to COPD. Continue p.o. prednisone Chronic COPD on 2 L home oxygen. SpO2 > 90% on supplemental oxygen. Continue home dose Spiriva and Advair and Serevent. Continue Daliresp for COPD and chronic bronchitis Mucinex twice daily Nebulizer as needed Incentive spirometry and flutter valve at bedside (5) Hypotension Qualifiers: Hypotension type: unspecified hypotension type Qualified Code(s): I95.9 - Hypotension, unspecified Is this a current diagnosis for this admission?: Yes Plan: Resolved. Patient's home antihypertensive medications have been resumed (6) Right foot pain Is this a current diagnosis for this admission?: Yes Plan: Improved. Patient did not complain of right foot pain this morning. Xray of R foot inconclusive for fracture of 4th proximal phalanx No bruising or swelling to the area Pain management with PRN tylenol. Patient is primarily immobile (7) Small cell lung cancer Is this a current diagnosis for this admission?: Yes Plan: With brain metastasis, in remission per patient. (8) Generalized weakness Is this a current diagnosis for this admission?: Yes Plan: The patient reports that she is primarily bedbound at home and uses bedside commode with assistance. While at the hospital, the patient is refusing to get up to chair or bedside commode even with assistance due to fear falling. PT OT have been consulted. Patient to get out of bed with assistance 3 times daily for meals. Recommend acute rehab/SNF at discharge (9) At risk for readmission to hospital Is this a current diagnosis for this admission?: Yes Plan: The patient is noted to have been admitted to the hospital 5 times since July of this year. She has had an additional 3 emergency department visits. Her home living situation is unclear, patient occasionally reports that her son and girlfriend live with her versus them living nearby be checking her frequently. Nursing staff has raised concern that family were asking to obtain power of system manager to gain access to patients banking accounts. The patient was also overheard by other staff members to have a conversation with her friend stating that she (the patient) believes her son may be catching her checks. Dr. Stewart of psychiatry evaluated the patient 10/25/2017 and recommended that the patient obtain a responsible and reliable guardian to manage her medical, financial, legal, and personal affairs. The patient would benefit from 24-hour supervision with [id number] medical staff given her poor memory, poor organizational poor visual spatial abilities and minimal ability to address her own ADLs., Psych also states that the patient's numerous significant medical issues and level of neurodegeneration place the patient had increased chance of victimization. APS has been contacted, they are requesting an affidavit of competency. Dr. Stewart is aware and currently working on this. Currently awaiting updates from discharge planning and APS. - Time Time Spent with patient: 15-24 minutes Medications reviewed and adjusted accordingly: Yes Anticipated discharge: SNF, Acute Rehab Within: within 48 hours - Inpatient Certification Based on my medical assessment, after consideration of the patient's comorbidities, presenting symptoms, or acuity I expect that the services needed warrant INPATIENT care.: Yes I certify that my determination is in accordance with my understanding of Medicare's requirements for reasonable and necessary INPATIENT services [42 CFR 412.3e].: Yes Medical Necessity: Risk of Complication if Not Cared For in Hospital - Plan Summary Plan Summary: Ultimately, the plan is to discharge the patient to acute rehab
[2017-11-01] MEDS: INSULIN LISPRO 100 UNIT/ML 3 ML VIAL SUBCUT PRN ×2 (00:15→18:35)
[2017-11-01] MEDS: LANSOPRAZOLE 30 MG TAB.RAP.DR PO SCH (07:13)
[2017-11-01] MEDS: LEVOTHYROXINE SODIUM 0.075 MG TABLET PO SCH (07:13)
--- NOTE | 2017-11-01 09:51 | PDOC DISCHARGE SUMMARY ---
General - Admit/Disc Date/PCP Admission Date/Primary Care Provider: 10/18/17 22:07 Discharge Date: 11/01/17 - Discharge Diagnosis (1) C. difficile diarrhea Is this a current diagnosis for this admission?: Yes Summary: C. difficile positive. Patient presented with multiple episodes of liquid stool. Treated for 10 days with oral vancomycin. Continue lactobacillus twice daily post discharge (2) GI bleed Is this a current diagnosis for this admission?: Yes Summary: Unclear etiology. Likely associated with C. difficile and infection/colitis Initial Hemoccult 10/18 negative repeat Hemoccult 10/22 positive. Hemoglobin dropped from 11->7.6. Transfuse 2 units PRBCs. Surgery performed EGD and colonoscopy, no evidence of bleeding CT scan chest/abdomen/pelvis did not demonstrate evidence of acute bleeding Continue Prevacid post discharge (3) CHF (congestive heart failure) Is this a current diagnosis for this admission?: Yes Summary: Stable without exacerbation Cardiac enzymes negative Echocardiogram normal, could not assess LVEF, mild MR, mild pulmonary hypertension, mild to moderate diastolic dysfunction Continue lisinopril and amlodipine post discharge (4) Chronic respiratory failure Is this a current diagnosis for this admission?: Yes Summary: Chronic respiratory failure with hypoxia secondary to COPD Chronic COPD on 2 L home oxygen. SPO2 greater than 90% on supplemental oxygen Continue Spiriva and Advair and Serevent post discharge Continue Daliresp for COPD and chronic bronchitis post discharge Patient no longer needs Mucinex twice daily Patient should continue to use incentive spirometry and flutter valve post discharge (5) Hypotension Is this a current diagnosis for this admission?: Yes Summary: Resolved. Likely secondary to volume depletion related to C. difficile colitis. Blood pressure has been normotensive for approximately 1 week. Patient's home antihypertensive medications have been resumed (6) Right foot pain Is this a current diagnosis for this admission?: Yes Summary: Improved. 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 While at the hospital the patient is refusing to get up out of bed to chair or bedside commode even with assistance due to fear falling. Patient will require physical therapy post discharge, hence discharge to acute rehab (9) At risk for readmission to hospital Is this a current diagnosis for this admission?: Yes Summary: The patient has been noted to have been admitted to the hospital 5 times since July of this year additionally, she has had 3 emergency department visits. Her home living situation is unclear, nursing staff has raised concerns the family asking to obtain power of survey technologist in order to gain access to patients banking accounts. The patient was overheard by staff having conversation with her friend stating that she, the patient, believes her son may be cashing her checks. Dr. Stewart of psychiatry evaluated the patient on 10/25/2017 and recommended that the patient obtain a responsible and reliable guardian to manage her medical, financial, legal, and personal affairs. The patient would benefit from 24-hour supervision with [id number] medical staff given her poor memory, poor organizational, poor visual spatial abilities and minimal ability to address her own ADLs. Psych also states that the patient's numerous significant medical issues and level of neurodegeneration place the patient at increased risk of victimization. APS has been contacted, a b2b sales representative was at the bedside yesterday to evaluate the patient, APS is requesting an affidavit of competency from Dr. Stewart. Until that is obtained, the patient is amendable to being discharged to an acute rehab facility. The patient understands that she will not be returning home, and that she will be discharged from [facility] and transferred to [facility] where she will receive physical therapy to help regain her strength and independence. APS will manage long-term placement arrangements should they determine that the patient cannot return home. - Additional Information Resuscitation Status: Full Code Discharge Diet: Cardiac Discharge Activity: Activity As Tolerated Prescriptions: Lactobacillus Acidophilus [Bacid 250 mg Tablet] 250 mg PO BID #60 tab Roflumilast [Daliresp 500 Mcg Tablet] 250 mcg PO DAILY #30 tablet Home Medications: Albuterol Sulfate [Proair HFA Inhalation Aerosol 8.5 gm MDI] 2 puff IH Q4HP PRN 10/19/17 Amlodipine Besylate [Norvasc 2.5 mg Tablet] 2.5 mg PO Q12 10/19/17 Furosemide [Lasix] 20 mg PO BID 10/19/17 Levothyroxine Sodium [Synthroid 0.088 mg Tablet] 0.088 mg PO Q6AM 10/19/17 Lisinopril [Zestril] 5 mg PO DAILY 10/19/17 Metformin HCl [Metformin HCl ER] 500 mg PO WSUPPER 10/19/17 Pantoprazole Sodium [Protonix] 40 mg PO DAILY 10/19/17 Salmeterol Xinafoate [Serevent Diskus 50 Mcg/Dose 28 Dose/Diskus] 1 puff IH Q12 10/19/17 Tiotropium [place] [Spiriva Handihaler 18 mcg/dose (30 Dose)] 1 cap IH DAILY Lactobacillus Acidophilus [Bacid 250 mg Tablet] 250 mg PO BID #60 tab 11/01/17 Levothyroxine Sodium [Synthroid 0.075 mg Tablet] 0.075 mg PO Q6AM tablet Roflumilast [Daliresp 500 Mcg Tablet] 250 mcg PO DAILY #30 tablet 11/01/17 Tiotropium [place] [Spiriva Handihaler 5 Cap/Kit (18 Mcg/Cap)] 1 cap IH DAILY kit 11/01/17 History of Present Illness History of Present Illness: TRENTON MCCOY is a 72 year old female with history of dementia, small cell lung cancer with brain metastases (post chemoradiation, in remission per patient ), chronic respiratory failure/COPD (on 2 L home oxygen), CAD/CHF and type 2 diabetes mellitus was admitted with above-mentioned complaints. The patient was last hospitalized here from 10/09/2017 to 10/16/2017 with COPD exacerbation. I am not sure how accurate the history provided by the patient so most of the information was obtained from the ED physician and notes. According to the ED physician, the patient has been complaining of dark stool for the last 3 days and when she followed with her primary physician, she was found to be hypotensive so she was sent to the hospital for further management and treatment. The patient denied any chest pain and she said that she has chronic shortness of breath. She also denied any fever, chills, nausea or vomiting, abdominal pain, diarrhea, constipation or any dark stool or poor appetite. She said that she felt dizzy/lightheaded lately but she denied any urinary symptoms. She lives by herself but she said that Crystal (possibly family member and/or aid) helps her with her medications. She said that she takes ibuprofen 600 mg and one baby aspirin daily. She is also on Protonix 40 mg daily when I looked throughout her medications bottles that she brought with her. The patient also complained of right foot pain after she reportedly fell during her last hospitalization here. In the ED, her temperature 97.7, heart rate 98, respiratory rate 35 (down to 16) , blood pressure 100/61 with oxygen saturation of 100% on 2 L nasal cannula. Her hemoglobin was 10.5 (up from 9.2 on 10/14/2017) and her WBC was 11.0. UA pending. Her initial troponin was 0.03 and she was Hemoccult negative. She received 2 L of normal saline with improvement of her blood pressure to 97/87 with MAP of 69. Hospital Course Hospital Course: As stated above Physical Exam Vital Signs: Temp Pulse Resp BP Pulse Ox 98.0 F 90 20 123/72 100 11/01/17 07:25 11/01/17 07:25 11/01/17 07:25 11/01/17 07:25 11/01/17 07:25 Intake & Output 10/31/17 11/01/17 11/02/17 06:59 06:59 06:59 Intake Total 1184 1701 1742 Balance 1184 1701 1742 Weight 91.7 kg 90.7 kg General appearance: PRESENT: no acute distress Head exam: PRESENT: atraumatic Eye exam: PRESENT: conjunctiva pink, PERRLA Mouth exam: PRESENT: moist Neck exam: PRESENT: full ROM Respiratory exam: PRESENT: chest wall tenderness, symmetrical, unlabored Cardiovascular exam: PRESENT: +S1, +S2 Pulses: PRESENT: normal radial pulses, normal dorsalis pedis pul Vascular exam: PRESENT: normal capillary refill GI/Abdominal exam: PRESENT: normal bowel sounds, soft. ABSENT: tenderness Rectal exam: PRESENT: deferred Extremities exam: PRESENT: full ROM Musculoskeletal exam: PRESENT: full ROM. ABSENT: ambulatory - Patient Neurological exam: PRESENT: alert, awake, oriented to person, oriented to place. ABSENT: oriented to time, oriented to situation - intermittently aware of why she is in the hospital. intermittently states her son is coming to pick her up and take her home, also has periods when she is lucid and understands that she is going to rehab/snf, normal gait Psychiatric exam: PRESENT: other - dementia. confused. Skin exam: PRESENT: normal color Results Laboratory Results: 10/27/17 05:44 10/25/17 04:50 10/19/17 10/19/17 04:13 10:29 Troponin I 0.032 0.026 Impressions: Foot X-Ray 10/18/17 00:00 IMPRESSION: Cannot exclude fracture of the 4th proximal phalanx. Chest X-Ray 10/18/17 19:11 IMPRESSION: There is no acute cardiopulmonary disease. No interval change. Abdomen/Pelvis CT 10/23/17 00:00 IMPRESSION: No evidence of retroperitoneal hemorrhage. No acute findings. Chest CT 10/23/17 00:00 IMPRESSION: No evidence of hemorrhage. Small pleural effusions. Status: Imported from [facility] Qual[facility] - * [facility] BEING DISCHARGED WITH ANY OF THE FOLLOWING DIAGNOSIS?: No Plan Discharge Plan: Plan to discharge to acute rehab/SNF Time Spent: Less than 30 Minutes
[2017-11-01] MEDS: TIOTROPIUM BROMIDE DPI 5 CAP/KIT (18 MCG/CAP) IH SCH (11:10)
[2017-11-01] MEDS: ROFLUMILAST 500 MCG TABLET PO SCH (11:10)
[2017-11-01] MEDS: AMLODIPINE BESYLATE 2.5 MG TABLET PO SCH ×2 (11:10→21:16)
[2017-11-01] MEDS: LACTOBACILLUS ACIDOPHILUS 250 MG TAB PO SCH ×2 (11:11→18:35)
[2017-11-01] MEDS: PREDNISONE 20 MG TABLET PO SCH (11:11)
[2017-11-01] MEDS: GUAIFENESIN 600 MG TABLET.SA PO SCH ×2 (11:11→21:16)
[2017-11-01] MEDS: LISINOPRIL 5 MG TABLET PO SCH (11:11)
[2017-11-01] MEDS: FLUTICASONE/SALMETEROL DISKUS 250-50 MCG/DOSE IH SCH ×2 (11:12→21:16)
[2017-11-01] MEDS: SALMETEROL XINAFOATE DISKUS 50 MCG/1 DOSE 28 DOSE IH SCH ×2 (11:12→21:16)
[2017-11-01 13:25] VITALS: BP 108/64
== END 2017-11-01 22:04 | DRG 371 ==
LOC: ER 16:35 → EH 22:07 → 4W 23:30 → 4N 10-24 16:35
PROVIDERS: ADMIT Internal Medicine Geriatric Medicine; ATTEND Internal Medicine Geriatric Medicine
PROC: 0DB68ZX Excision of Stomach, Via Natural or Artificial Opening Endoscopic, Diagnostic (ICD-10-PCS; principal; 2017-10-23 09:30)
PROC: 0DJD8ZZ Inspection of Lower Intestinal Tract, Via Natural or Artificial Opening Endoscopic (ICD-10-PCS; 2017-10-23 09:30)
DX: A04.72 Enterocolitis due to Clostridium difficile, not specified as recurrent (principal); K29.01 Acute gastritis with bleeding; J96.11 Chronic respiratory failure with hypoxia; C34.90 Malignant neoplasm of unspecified part of unspecified bronchus or lung; C79.31 Secondary malignant neoplasm of brain; I50.32 Chronic diastolic (congestive) heart failure; K52.9 Noninfective gastroenteritis and colitis, unspecified; Z99.81 Dependence on supplemental oxygen; I25.10 Atherosclerotic heart disease of native coronary artery without angina pectoris; I50.9 Heart failure, unspecified; J44.9 Chronic obstructive pulmonary disease, unspecified; E11.9 Type 2 diabetes mellitus without complications; E03.9 Hypothyroidism, unspecified; K21.9 Gastro-esophageal reflux disease without esophagitis; F03.90 Unspecified dementia, unspecified severity, without behavioral disturbance, psychotic disturbance, mood disturbance, and anxiety; S92.911A Unspecified fracture of right toe(s), initial encounter for closed fracture; W19.XXXA Unspecified fall, initial encounter; G47.33 Obstructive sleep apnea (adult) (pediatric); M79.671 Pain in right foot; E66.9 Obesity, unspecified; R00.0 Tachycardia, unspecified; E86.9 Volume depletion, unspecified; Z79.2 Long term (current) use of antibiotics; Z79.51 Long term (current) use of inhaled steroids; Z79.52 Long term (current) use of systemic steroids; Z79.899 Other long term (current) drug therapy; Z88.3 Allergy status to other anti-infective agents; Z88.8 Allergy status to other drugs, medicaments and biological substances; Z87.891 Personal history of nicotine dependence; Z68.32 Body mass index [BMI] 32.0-32.9, adult
CPT/HCPCS: 00813; 36415; 36430; 43235; 45380; 71045; 71250; 74176; 80048; 80053; 82272; 82550; 82553; 82962; 83735; 84100; 84439; 84443; 84484; 85025; 85027; 85610; 86850; 86900; 86901; 86920; 87493; 88305; 93005; 93010; 93306; 94640; 94667; 94799; 96361; 96365; 99285; G8978-GP; G8979-GP; G8987-GO; G8988-GO; J1815; J2405; J2704; J2920; J2930; J3370; J3475; J3490; J7030; J7040; J7512; J7620; P9016; S0164

== ENCOUNTER 2017-11-13 06:40 | Emergency (ER) | payer MEDICARE, OTHER ==
[2017-11-13] MEDS ORDERED: IPRATROPIUM/ALBUTEROL 0.5-2.5 MG/3 ML AMPUL NEB ONE (06:47)
--- NOTE | 2017-11-13 06:59 | ER Document Report ---
ED General - General Chief Complaint: Breathing Difficulty Stated Complaint: DIFFICULTY BREATHING Time Seen by Provider: 11/13/17 06:46 Mode of Arrival: Ambulatory Information source: Patient Notes: 72-year-old female history CHF COPD presents planes of respiratory distress. Patient notes an episode 30 minutes prior to arrival, denies any fevers or chills. Patient was given 125 Solu-Medrol attempts to be placed on CPAP but did not tolerate Patient is at baseline on 2 L nasal cannula TRAVEL OUTSIDE OF THE [place] IN LAST 30 DAYS: No - HPI Onset: Just prior to arrival Onset/Duration: Sudden Quality of pain: No pain Severity: Moderate Pain Level: Denies Associated symptoms: Nonproductive cough, Shortness of breath Exacerbated by: Walking Relieved by: Denies Similar symptoms previously: Yes Recently seen / treated by doctor: Yes - Related Data Allergies/Adverse Reactions: azithromycin Allergy (Verified 11/13/17 06:50) amoxicillin [Amoxicillin] Adverse Reaction (Verified 11/13/17 06:50) visual hallucinations erythromycin base [Erythromycin Base] Adverse Reaction (Verified 11/13/17 06:50) visual hallucinations Potassium Clavulanate * [From Augmentin] Adverse Reaction (Verified 11/13/17 06: 50) visual hallucinations Past Medical History - Social History Smoking Status: Never Smoker Cigarette use (# per day): No Chew tobacco use (# tins/day): No Smoking Education Provided: No Family History: COPD, Malignancy - Lung cancer - Past Medical History Cardiac Medical History: Reports: Hx Congestive Heart Failure, Hx Coronary Artery Disease, Hx Heart Attack, Hx Hypertension Denies: Hx DVT, Hx Hypercholesterolemia, Hx Pulmonary Embolism Pulmonary Medical History: Reports: Hx Asthma, Hx Bronchitis, Hx COPD - 2 L nasal home oxygen, Hx Pneumonia, Hx Respiratory Failure - Chronic respiratory failure Denies: Hx Sleep Apnea, Hx Tuberculosis Neurological Medical History: Denies: Hx Seizures Endocrine Medical History: Reports: Hx Diabetes Mellitus Type 2, Hx Hypothyroidism. 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 Denies: Hx Cirrhosis, Hx Hepatitis, Hx Ulcer Musculoskeltal Medical History: Reports Hx Arthritis, Denies Hx Multiple Sclerosis, Reports Hx Musculoskeletal Deformity, Reports Hx Musculoskeletal Trauma Psychiatric Medical History: Reports: Hx Dementia, Hx Depression Denies: Hx Bipolar Disorder, Hx Schizophrenia Infectious Medical History: Reports: Hx C-Diff. Denies: Hx Hepatitis Past Surgical History: Reports: Hx Cholecystectomy, Hx Orthopedic Surgery - Foot surgery, Other - cataract bilateral - Immunizations Hx Diphtheria, Pertussis, Tetanus Vaccination: Yes Hx Pneumococcal Vaccination: 08/30/12 Review of Systems - Review of Systems Notes: REVIEW OF SYSTEMS: CONSTITUTIONAL : Denies fever, chills, or sweats. Denies recent illness. EENT: Denies eye, ear, throat, or mouth pain or symptoms. Denies nasal or sinus congestion or discharge. Denies throat, tongue, or mouth swelling or difficulty swallowing. CARDIOVASCULAR: Denies chest pain. Denies palpitations or racing or irregular heart beat. Denies ankle edema. RESPIRATORY: Admits shortness breath difficulty breathing GASTROINTESTINAL: Denies abdominal pain or distention. Denies nausea, vomiting , or diarrhea. Denies blood in vomitus, stools, or per rectum. Denies black, tarry stools. Denies constipation. GENITOURINARY: Denies difficulty urinating, painful urination, burning, frequency, blood in urine, or discharge. FEMALE GENITOURINARY: Denies vaginal bleeding, heavy or abnormal periods, irregular periods. Denies vaginal discharge or odor. MUSCULOSKELETAL: Denies back or neck pain or stiffness. Denies joint pain or swelling. SKIN: Denies rash, lesions or sores. HEMATOLOGIC : Denies easy bruising or bleeding. LYMPHATIC: Denies swollen, enlarged glands. NEUROLOGICAL: Denies confusion or altered mental status. Denies passing out or loss of consciousness. Denies dizziness or lightheadedness. Denies headache. Denies weakness or paralysis or loss of use of either side. Denies problems with gait or speech. Denies sensory loss, numbness, or tingling. Denies seizures. PSYCHIATRIC: Denies anxiety or stress. Denies depression, suicidal ideation, or homicidal ideation. ALL OTHER SYSTEMS REVIEWED AND NEGATIVE. PHYSICAL EXAMINATION: GENERAL: Obese female in mild respiratory distress HEAD: Atraumatic, normocephalic. EYES: Pupils equal round and reactive to light, extraocular movements intact, conjunctiva are normal. ENT: Nares patent, oropharynx clear without exudates. Moist mucous membranes. NECK: Normal range of motion, supple without lymphadenopathy LUNGS: Crackles at the bases bilateral HEART: Regular rate and rhythm without murmurs ABDOMEN: Soft, nontender, nondistended abdomen. No guarding, no rebound. No masses appreciated. Female : deferred Musculoskeletal: History pitting edema bilateral lower extremities. NEUROLOGICAL: Cranial nerves grossly intact. Normal speech, normal gait. Normal sensory, motor exams PSYCH: Normal mood, normal affect. SKIN: +3 pitting edema of the lower extremities Dictation was performed using [employer] voice recognition software Physical Exam - Vital signs Vitals: Resp Pulse Ox 23 H 98 11/13/17 06:45 11/13/17 06:45 Course - Re-evaluation Re-evalutation: 11/13/17 06:59 Patient's presentation is consistent with CHF and COPD mixed, lab work imaging pending patient overall looks well is on the monitor noted to be tachycardic at 115 to satting 99% on nasal cannula 11/13/17 08:56 Patient is currently on monitor satting 97% on cannula heart rate 113 11/13/17 10:52 Patient was ambulated, her O2 sats never went below 94%,, therefore given baseline presentation no sign of any infectious process no respiratory distress believe patient is stable for discharge with extremely strict return precautions After performing a Medical Screening Examination, I estimate there is LOW risk for ACUTE CORONARY SYNDROME, PULMONARY EMBOLI, RESPIRATORY FAILURE, SEPSIS OR MENINGITIS, thus I consider the discharge disposition reasonable. I have reevaluated this patient multiple times and no significant life threatening changes are noted. The patient and I have discussed the diagnosis and risks, and we agree with discharging home with close follow-up. We also discussed returning to the Emergency Department immediately if new or worsening symptoms occur. We have discussed the symptoms which are most concerning (e.g., changing or worsening pain, trouble swallowing or breathing, neck stiffness, fever) that necessitate immediate return. - Vital Signs Vital signs: Temp Pulse Resp BP Pulse Ox 97.3 F 17 124/75 99 11/13/17 06:46 11/13/17 10:01 11/13/17 10:01 11/13/17 10:01 - Laboratory Result Diagrams: 11/13/17 06:50 11/13/17 06:50 Laboratory results interpreted by me: 11/13/17 11/13/17 11/13/17 06:50 06:50 08:45 WBC 11.2 H Hgb 11.8 L Hct 35.3 L RDW 16.3 H Band Neutrophils % 1 L Monocytes % (Manual) 2 L Metamyelocytes % 2 H Abs Neuts (Manual) 9.1 H VBG pCO2 66.9 H* VBG HCO3 38.6 H Potassium 3.5 L Chloride 97 L Carbon Dioxide 40 H* BUN 38 H Creatine Kinase < 20 L Total Protein 5.5 L - Diagnostic Test Radiology reviewed: Image reviewed - 1 view chest x-ray notes no acute abnormality, Reports reviewed Discharge - Discharge Clinical Impression: COPD exacerbation Condition: Stable Disposition: HOME, SELF-CARE Instructions: Chronic Obstructive Lung Disease ([facility]) Additional Instructions: Follow up with your physician tomorrow for further care or return to the ED IMMEDIATELY if symptoms worsen or new concerns occur. If you cannot afford to follow up with your primary care physician a list of low cost clinics have been provided at the end of your discharge papers as well. Prescriptions: Prednisone [Deltasone 20 mg Tablet] 3 tab PO DAILY 5 Days tablet
[2017-11-13 07:22] LABS: HEMATOCRIT 35.3 % (36.0-47.0); HEMOGLOBIN 11.8 g/dL (12.0-15.5); MEAN CORPUSCULAR HEMOGLOBIN 31.6 pg (27.0-33.4); MEAN CORPUSCULAR HGB CONC 33.3 g/dL (32.0-36.0); MEAN CORPUSCULAR VOLUME 95 fl (80-97); PLATELET COUNT 202 10^3/uL (150-450); RED BLOOD COUNT 3.72 10^6/uL (3.72-5.28); RED CELL DISTRIBUTION WIDTH 16.3 % (11.5-14.0); WHITE BLOOD COUNT 11.2 10^3/uL (4.0-10.5)
[2017-11-13 07:25] LABS: ALANINE AMINOTRANSFERASE 38 U/L (9-52); ALBUMIN 3.5 g/dL (3.5-5.0); ALKALINE PHOSPHATASE 109 U/L (38-126); ASPARTATE AMINO TRANSFERASE 19 U/L (14-36); BILIRUBIN,DIRECT 0.1 mg/dL (0.0-0.4); BILIRUBIN,TOTAL 0.3 mg/dL (0.2-1.3); BLOOD UREA NITROGEN 38 mg/dL (7-20); CALCIUM 9.5 mg/dL (8.4-10.2); CHLORIDE 97 mmol/L (98-107); GLUCOSE 108 mg/dL (75-110); POTASSIUM 3.5 mmol/L (3.6-5.0); SODIUM 143.8 mmol/L (137-145); TOTAL PROTEIN 5.5 g/dL (6.3-8.2)
[2017-11-13 07:27] LABS: ANION GAP 7 (5-19); CREATINE KINASE < 20 U/L (30-135)
[2017-11-13 07:33] LABS: CARBON DIOXIDE 40 mmol/L (22-30)
[2017-11-13 07:37] LABS: CREATINE KINASE MB 0.95 ng/mL (<4.55)
[2017-11-13 07:38] LABS: TROPONIN I 0.038 ng/mL
[2017-11-13 07:50] LABS: ABSOLUTE LYMPHOCYTES# (MANUAL) 1.9 10^3/uL (0.5-4.7); ABSOLUTE MONOCYTES # (MANUAL) 0.2 10^3/uL (0.1-1.4); ABSOLUTE NEUTROPHILS# (MANUAL) 9.1 10^3/uL (1.7-8.2); ANISOCYTOSIS 1+; BAND NEUTROPHILS % (MANUAL) 1 % (3-5); BASOPHILS % (MANUAL) 0 % (0-2); EOSINOPHILS % (MANUAL) 0 % (0-6); HYPOCHROMASIA SLIGHT; LYMPHOCYTES % (MANUAL) 17 % (13-45); METAMYELOCYTES % (MANUAL) 2 % (0); MONOCYTES % (MANUAL) 2 % (3-13); OVALOCYTES SLIGHT; PLATELET COMMENT ADEQUATE; POIKILOCYTOSIS SLIGHT; SEGMENTED NEUTROPHILS % (MAN) 78 % (42-78); TEAR DROP CELLS SLIGHT; TOTAL CELLS COUNTED 100; TOXIC GRANULATION 1+
--- NOTE | 2017-11-13 07:51 | RADIOLOGY REPORT (SQ) ---
EXAM DESCRIPTION: CHEST SINGLE VIEW COMPLETED DATE/TIME: 11/13/2017 7:13 am REASON FOR STUDY: resp distress, copd , chf COMPARISON: CT chest 10/23/2017 AP chest 10/09/2017, 09/19/2017 EXAM PARAMETERS: NUMBER OF VIEWS: One view. TECHNIQUE: Single frontal radiographic view of the chest acquired. RADIATION DOSE: NA LIMITATIONS: None. FINDINGS: LUNGS AND PLEURA: Old post radiation change right hilum. Mild chronic elevation the right hemidiaphragm. No acute infiltrates. No grows pleural effusion. No pneumothorax. MEDIASTINUM AND HILAR STRUCTURES: Postradiation change right hilum HEART AND VASCULAR STRUCTURES: Heart normal in size. Normal vasculature. BONES: No acute findings. HARDWARE: None in the chest. OTHER: No other significant finding. IMPRESSION: Old post therapeutic changes right chest. No definite acute finding TECHNICAL DOCUMENTATION: JOB ID: [id number] [employer]- All Rights Reserved Reading location - IP/workstation name: [email or web address]
--- NOTE | 2017-11-13 08:19 | EKG REPORT ---
SEVERITY:- ABNORMAL ECG - SINUS TACHYCARDIA PROBABLE LEFT ATRIAL ABNORMALITY RIGHT BUNDLE BRANCH BLOCK : Confirmed by: Mercedes Solomon 13-Nov-2017 08:18:01
[2017-11-13 09:03] LABS: VENOUS BLOOD BASE EXCESS 11.1 mmol/L; VENOUS BLOOD HCO3 38.6 mmol/L (20-32); VENOUS BLOOD PH 7.38 (7.30-7.42)
[2017-11-13 09:04] LABS: VENOUS BLOOD PCO2 66.9 mmHg (35-63)
[2017-11-13 11:52] VITALS: BP 119/71
== END 2017-11-13 11:52 | disposition home or self-care (01) ==
LOC: ER 06:40
DX: J44.1 Chronic obstructive pulmonary disease with (acute) exacerbation (principal); E66.9 Obesity, unspecified; I50.9 Heart failure, unspecified; I25.10 Atherosclerotic heart disease of native coronary artery without angina pectoris; I11.0 Hypertensive heart disease with heart failure; E11.9 Type 2 diabetes mellitus without complications; Z88.3 Allergy status to other anti-infective agents; Z88.0 Allergy status to penicillin; I25.2 Old myocardial infarction; Z99.81 Dependence on supplemental oxygen; Z90.49 Acquired absence of other specified parts of digestive tract; Z85.841 Personal history of malignant neoplasm of brain; Z85.118 Personal history of other malignant neoplasm of bronchus and lung
CPT/HCPCS: 93005; 94640; 99285; 36415; 87040; 87070; 87205; 82553; 82550; 85025; 87077; 80053; 84484; 82803; 83880; 71045; 93010; A9270; J7620

== ENCOUNTER 2017-11-21 04:48 | Inpatient (IN) | payer MEDICARE, OTHER ==
[2017-11-21] MEDS ORDERED: METHYLPREDNISOLONE INJ 125 MG/2 ML SDV IV ONE (05:04)
[2017-11-21] MEDS ORDERED: IPRATROPIUM/ALBUTEROL 0.5-2.5 MG/3 ML AMPUL NEB ONE ×2 (05:04→16:00)
[2017-11-21] MEDS: MAGNESIUM SULFATE/D5W 1 GM/100 ML RTUPB IV SCH ×2 (05:17→05:46)
--- NOTE | 2017-11-21 05:20 | ER Document Report ---
Doctor's Note Notes: 11/21/17 05:19 I performed a quick triage evaluation the patient. Patient is a pleasant 72- year-old female who is well-known to ED. His history of COPD. She said she was just seen in [facility] 1-2 days ago and diagnosed with pneumonia and they want to admit her but she want to go home. She therefore went home and her breathing got worse and therefore she called ambulance. She is brought here. She says she initially had some chest pain but then she started having wheezing and difficulty breathing. No fevers at home. No other complaints at this time. I did place a peripheral IV under ultrasound guidance. I have ordered CBC CMP venous blood gas chest x-ray. I have ordered magnesium Solu- Medrol and breathing treatments. Patient does have diffuse coarse wheezing. She has mild distress. Mild accessory muscle use. Dictation of this chart was performed using voice recognition software; therefore, there may be some unintended grammatical errors.
[2017-11-21 05:37] LABS: HEMATOCRIT 30.6 % (36.0-47.0); HEMOGLOBIN 10.4 g/dL (12.0-15.5); MEAN CORPUSCULAR HEMOGLOBIN 32.5 pg (27.0-33.4); MEAN CORPUSCULAR VOLUME 96 fl (80-97); PLATELET COUNT 197 10^3/uL (150-450); RED CELL DISTRIBUTION WIDTH 16.6 % (11.5-14.0); WHITE BLOOD COUNT 9.6 10^3/uL (4.0-10.5)
[2017-11-21 05:38] LABS: VENOUS BLOOD BASE EXCESS 9.3 mmol/L; VENOUS BLOOD HCO3 37.2 mmol/L (20-32); VENOUS BLOOD PH 7.37 (7.30-7.42)
[2017-11-21 05:40] LABS: VENOUS BLOOD PCO2 65.9 mmHg (35-63)
[2017-11-21 05:59] LABS: ALANINE AMINOTRANSFERASE 33 U/L (9-52); ALBUMIN 3.4 g/dL (3.5-5.0); ALKALINE PHOSPHATASE 71 U/L (38-126); ANION GAP 9 (5-19); ASPARTATE AMINO TRANSFERASE 25 U/L (14-36); BILIRUBIN,DIRECT 0.2 mg/dL (0.0-0.4); BILIRUBIN,TOTAL 0.2 mg/dL (0.2-1.3); BLOOD UREA NITROGEN 26 mg/dL (7-20); CALCIUM 8.9 mg/dL (8.4-10.2); CARBON DIOXIDE 37 mmol/L (22-30); CHLORIDE 96 mmol/L (98-107); GLUCOSE 118 mg/dL (75-110); SODIUM 141.6 mmol/L (137-145); TOTAL PROTEIN 5.8 g/dL (6.3-8.2)
--- NOTE | 2017-11-21 06:16 | RADIOLOGY REPORT (SQ) ---
EXAM DESCRIPTION: CHEST SINGLE VIEW CLINICAL HISTORY: 72 years Female, difficulty breathing COMPARISON: November 13, 2017 NUMBER OF VIEWS/TECHNIQUE: 1/AP LIMITATIONS: None. FINDINGS: Moderate right hilar scar/fibrosis pattern, normal cardiac silhouette, atherosclerosis, and intact bony thorax. Stable. IMPRESSION: No significant change.
[2017-11-21 06:24] LABS: POTASSIUM 3.9 mmol/L (3.6-5.0)
[2017-11-21] MEDS ORDERED: ALBUTEROL SULFATE 0.083% NEB 2.5 MG/3 ML AMPUL NEB ONE (06:30)
[2017-11-21 06:38] LABS: ABSOLUTE LYMPHOCYTES# (MANUAL) 0.6 10^3/uL (0.5-4.7); ABSOLUTE MONOCYTES # (MANUAL) 0.5 10^3/uL (0.1-1.4); ABSOLUTE NEUTROPHILS# (MANUAL) 8.5 10^3/uL (1.7-8.2); BAND NEUTROPHILS % (MANUAL) 1 % (3-5); BASOPHILS % (MANUAL) 0 % (0-2); EOSINOPHILS % (MANUAL) 0 % (0-6); LYMPHOCYTES % (MANUAL) 6 % (13-45); MONOCYTES % (MANUAL) 5 % (3-13); SEGMENTED NEUTROPHILS % (MAN) 87 % (42-78); TOTAL CELLS COUNTED 100
[2017-11-21 06:39] LABS: ANISOCYTOSIS 1+
[2017-11-21 06:40] LABS: TARGET CELLS SLIGHT; TEAR DROP CELLS 1+
[2017-11-21 06:41] LABS: PLATELET COMMENT ADEQUATE
[2017-11-21 06:48] LABS: MYELOCYTES % (MANUAL) 1 % (0)
[2017-11-21 06:49] LABS: APPEARANCE,URINE CLEAR; BILIRUBIN,URINE NEGATIVE (NEGATIVE); COLOR,URINE YELLOW; GLUCOSE, URINE 50 mg/dL (NEGATIVE); KETONES,URINE TRACE mg/dL (NEGATIVE); LEUKOCYTE ESTERASE,URINE NEGATIVE (NEGATIVE); NITRITE,URINE NEGATIVE (NEGATIVE); PROTEIN,URINE NEGATIVE (NEGATIVE); URINE SPECIFIC GRAVITY 1.011; UROBILINOGEN,URINE NEGATIVE mg/dL (<2.0)
--- NOTE | 2017-11-21 07:10 | ER Document Report ---
ED General - General Chief Complaint: Respiratory Distress Stated Complaint: DIFFICULTY BREATHING Time Seen by Provider: 11/21/17 05:03 Mode of Arrival: Ambulatory Information source: Patient Notes: Patient is a pleasant 72-year-old female with history of COPD, hypertension, diabetes who is well-known to ED. Patient was recently seen in [facility] 1 -2 days ago and diagnosed with pneumonia. Patient reports that they wanted to admit her but she was unable to stay and came home. Patient states she has had a cough for approximately 1 week. She describes it as a dry persistent cough. She does wear 2 L of oxygen at home. She is not requiring any increased oxygen at this time. She does report intermittent chest pain with coughing. She states her shortness of breath is at baseline. She has had intermittent chills , fever. Patient denies any recent hospital admissions. States that she was not sent home on any antibiotics from the hospital where she was seen in [facility]. Patient lives alone. Denies any recent tobacco use. TRAVEL OUTSIDE OF THE [place] IN LAST 30 DAYS: No - HPI Onset: Last week Onset/Duration: Gradual, Persistent Quality of pain: Achy Severity: Mild Associated symptoms: Nonproductive cough, Fever, Nausea, Shortness of breath Exacerbated by: Denies Relieved by: Denies Similar symptoms previously: Yes Recently seen / treated by doctor: Yes - Related Data Allergies/Adverse Reactions: azithromycin Allergy (Verified 11/13/17 06:50) amoxicillin [Amoxicillin] Adverse Reaction (Verified 11/13/17 06:50) visual hallucinations erythromycin base [Erythromycin Base] Adverse Reaction (Verified 11/13/17 06:50) visual hallucinations Potassium Clavulanate * [From Augmentin] Adverse Reaction (Verified 11/13/17 06: 50) visual hallucinations Past Medical History - General Information source: Patient - Social History Smoking Status: Former Smoker Chew tobacco use (# tins/day): No Frequency of alcohol use: Rare Drug Abuse: None Family History: COPD, Malignancy - Lung cancer Patient has suicidal ideation: No Patient has homicidal ideation: No - Past Medical History Cardiac Medical History: Reports: Hx Congestive Heart Failure, Hx Coronary Artery Disease, Hx Heart Attack, Hx Hypertension Denies: Hx DVT, Hx Hypercholesterolemia, Hx Pulmonary Embolism Pulmonary Medical History: Reports: Hx Asthma, Hx Bronchitis, Hx COPD - 2 L nasal home oxygen, Hx Pneumonia, Hx Respiratory Failure - Chronic respiratory failure Denies: Hx Sleep Apnea, Hx Tuberculosis Neurological Medical History: Denies: Hx Seizures Endocrine Medical History: Reports: Hx Diabetes Mellitus Type 2, Hx Hypothyroidism. 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 Denies: Hx Cirrhosis, Hx Hepatitis, Hx Ulcer Musculoskeltal Medical History: Reports Hx Arthritis, Denies Hx Multiple Sclerosis, Reports Hx Musculoskeletal Deformity, Reports Hx Musculoskeletal Trauma Psychiatric Medical History: Reports: Hx Dementia, Hx Depression Denies: Hx Bipolar Disorder, Hx Schizophrenia Infectious Medical History: Reports: Hx C-Diff. Denies: Hx Hepatitis Past Surgical History: Reports: Hx Cholecystectomy, Hx Orthopedic Surgery - Foot surgery, Other - cataract bilateral - Immunizations Hx Diphtheria, Pertussis, Tetanus Vaccination: Yes Hx Pneumococcal Vaccination: 08/30/12 Review of Systems - Review of Systems Notes: Patient denies headache, ear pain, sore throat, abdominal pain, back pain, dysuria, hematuria, rash, SI/HI. Patient currently complaining of cough, chest pain, shortness of breath. Physical Exam - Vital signs Vitals: Temp Resp 98.7 F 24 H 11/21/17 04:49 11/21/17 04:49 - Notes Notes: PHYSICAL EXAMINATION: GENERAL: Well-appearing, well-nourished and in no acute distress. HEAD: Atraumatic, normocephalic. EYES: Pupils equal round and reactive to light, extraocular movements intact, conjunctiva are normal. ENT: Nares patent, oropharynx clear without exudates. Dry mucous membranes. NECK: Normal range of motion, supple without lymphadenopathy LUNGS: Diffuse wheezing in all lung curtis. No respiratory distress. No accessory muscle use. Patient able to speak in full sentences. Currently on 2 L nasal cannula HEART: Regular rate and rhythm without murmurs ABDOMEN: Soft, nontender, nondistended abdomen. No guarding, no rebound. No masses appreciated. Female : deferred Musculoskeletal: Normal range of motion, no pitting or edema. No cyanosis. NEUROLOGICAL: Cranial nerves grossly intact. Normal speech, normal gait. Normal sensory, motor exams PSYCH: Normal mood, normal affect. SKIN: Warm, Dry, normal turgor, no rashes or lesions noted. Course - Re-evaluation Re-evalutation: Laboratory 11/21/17 11/21/17 11/21/17 05:15 05:15 05:15 WBC 9.6 RBC 3.20 L Hgb 10.4 L Hct 30.6 L MCV 96 MCH 32.5 MCHC 34.0 RDW 16.6 H Plt Count 197 Total Counted 100 Seg Neutrophils % Not Reportable Seg Neuts % (Manual) 87 H Band Neutrophils % 1 L Lymphocytes % Not Reportable Lymphocytes % (Manual) 6 L Monocytes % Not Reportable Monocytes % (Manual) 5 Eosinophils % Not Reportable Eosinophils % (Manual) 0 Basophils % Not Reportable Basophils % (Manual) 0 Myelocytes % 1 H Absolute Neutrophils Not Reportable Abs Neuts (Manual) 8.5 H Absolute Lymphocytes Not Reportable Abs Lymphs (Manual) 0.6 Absolute Monocytes Not Reportable Abs Monocytes (Manual) 0.5 Absolute Eosinophils Not Reportable Absolute Eos (Manual) 0.0 Absolute Basophils Not Reportable Abs Basophils (Manual) 0.0 Platelet Comment ADEQUATE Anisocytosis 1+ Target Cells SLIGHT Tear Drop Cells 1+ D-Dimer VBG pH 7.37 VBG pCO2 65.9 H* VBG HCO3 37.2 H VBG Base Excess 9.3 Sodium 141.6 Potassium 3.9 Chloride 96 L Carbon Dioxide 37 H Anion Gap 9 BUN 26 H Creatinine 0.78 Est GFR ( Amer) > 60 Est GFR (Non-Af Amer) > 60 Glucose 118 H Calcium 8.9 Total Bilirubin 0.2 Direct Bilirubin 0.2 Neonat Total Bilirubin Not Reportable Neonat Direct Bilirubin Not Reportable Neonat Indirect Bili Not Reportable AST 25 ALT 33 Alkaline Phosphatase 71 NT-Pro-B Natriuret Pep Total Protein 5.8 L Albumin 3.4 L Urine Color Urine Appearance Urine pH Ur Specific Salome Urine Protein Urine Glucose (UA) Urine Ketones Urine Blood Urine Nitrite Urine Bilirubin Urine Urobilinogen Ur Leukocyte Esterase Urine WBC (Auto) Urine RBC (Auto) U Hyaline Cast (Auto) Urine Bacteria (Auto) Squamous Epi Cells Auto Urine Mucus (Auto) Urine Ascorbic Acid 11/21/17 11/21/17 11/21/17 05:15 05:15 06:10 WBC RBC Hgb Hct MCV MCH MCHC RDW Plt Count Total Counted Seg Neutrophils % Seg Neuts % (Manual) Band Neutrophils % Lymphocytes % Lymphocytes % (Manual) Monocytes % Monocytes % (Manual) Eosinophils % Eosinophils % (Manual) Basophils % Basophils % (Manual) Myelocytes % Absolute Neutrophils Abs Neuts (Manual) Absolute Lymphocytes Abs Lymphs (Manual) Absolute Monocytes Abs Monocytes (Manual) Absolute Eosinophils Absolute Eos (Manual) Absolute Basophils Abs Basophils (Manual) Platelet Comment Anisocytosis Target Cells Tear Drop Cells D-Dimer 1.52 H VBG pH VBG pCO2 VBG HCO3 VBG Base Excess Sodium Potassium Chloride Carbon Dioxide Anion Gap BUN Creatinine Est GFR ( Amer) Est GFR (Non-Af Amer) Glucose Calcium Total Bilirubin Direct Bilirubin Neonat Total Bilirubin Neonat Direct Bilirubin Neonat Indirect Bili AST ALT Alkaline Phosphatase NT-Pro-B Natriuret Pep 492 Total Protein Albumin Urine Color YELLOW Urine Appearance CLEAR Urine pH 6.0 Ur Specific Salome 1.011 Urine Protein NEGATIVE Urine Glucose (UA) 50 H Urine Ketones TRACE H Urine Blood NEGATIVE Urine Nitrite NEGATIVE Urine Bilirubin NEGATIVE Urine Urobilinogen NEGATIVE Ur Leukocyte Esterase NEGATIVE Urine WBC (Auto) 5 Urine RBC (Auto) 1 U Hyaline Cast (Auto) 1 Urine Bacteria (Auto) TRACE Squamous Epi Cells Auto <1 Urine Mucus (Auto) RARE Urine Ascorbic Acid NEGATIVE Chest X-Ray 11/21/17 04:59 IMPRESSION: No significant change. 11/21/17 07:15 Patient is a pleasant 72-year-old female with history of COPD, hypertension, diabetes who is well-known to ED. patient was recently seen in [facility] 1-2 days ago and diagnosed with pneumonia. Patient was seen by myself upon arrival. Vital signs were reviewed. Patient is tachycardic but afebrile, normotensive and not hypoxic. Patient does not appear toxic does appear mildly dehydrated. Patient is in no acute distress. Previous medical records and nursing notes reviewed. Significant findings include diffuse wheezing in all lung curtis. We attempted to ambulate the patient who could not even tolerate standing at the bedside. Patient did receive multiple breathing treatments, Solu-Medrol without improvement of wheezing or shortness of breath. DC is without leukocytosis. Patient does have anemia which seems to be her baseline. ABG does show mild CO2 retention. Patient will be admitted to the hospitalist for COPD exacerbation. - Vital Signs Vital signs: Temp Pulse Resp BP Pulse Ox 98.7 F 18 127/82 H 100 11/21/17 04:49 11/21/17 07:01 11/21/17 07:01 11/21/17 07:01 - Laboratory Result Diagrams: 11/21/17 05:15 11/21/17 05:15 Laboratory results interpreted by me: 11/21/17 11/21/17 11/21/17 05:15 05:15 05:15 RBC 3.20 L Hgb 10.4 L Hct 30.6 L RDW 16.6 H Seg Neuts % (Manual) 87 H Band Neutrophils % 1 L Lymphocytes % (Manual) 6 L Myelocytes % 1 H Abs Neuts (Manual) 8.5 H D-Dimer Carbonic Acid ABG pCO2 ABG pO2 ABG HCO3 ABG Total CO2 VBG pCO2 65.9 H* VBG HCO3 37.2 H Chloride 96 L Carbon Dioxide 37 H BUN 26 H Glucose 118 H Total Protein 5.8 L Albumin 3.4 L Urine Glucose (UA) Urine Ketones 11/21/17 11/21/17 11/21/17 05:15 06:10 11:00 RBC Hgb Hct RDW Seg Neuts % (Manual) Band Neutrophils % Lymphocytes % (Manual) Myelocytes % Abs Neuts (Manual) D-Dimer 1.52 H Carbonic Acid 1.63 H ABG pCO2 54.3 H ABG pO2 106.3 H ABG HCO3 35.2 H ABG Total CO2 36.8 H VBG pCO2 VBG HCO3 Chloride Carbon Dioxide BUN Glucose Total Protein Albumin Urine Glucose (UA) 50 H Urine Ketones TRACE H - Diagnostic Test Radiology reviewed: Image reviewed, Reports reviewed - EKG Interpretation by Me EKG shows normal: Sinus rhythm Rate: Tachycardia Silva/QRS: RBBB Discharge - Discharge Clinical Impression: COPD (chronic obstructive pulmonary disease) Qualifiers: COPD type: COPD with acute exacerbation Qualified Code(s): J44.1 - Chronic obstructive pulmonary disease with (acute) exacerbation Disposition: ADMITTED INPATIENT Admitting Provider: Hospitalist Unit Admitted: Telemetry
--- NOTE | 2017-11-21 07:53 | EKG REPORT ---
SEVERITY:- ABNORMAL ECG - SINUS TACHYCARDIA ATRIAL PREMATURE COMPLEX RIGHT BUNDLE BRANCH BLOCK : Confirmed by: Issa Martinez MD 21-Nov-2017 07:51:52
[2017-11-21] MEDS ORDERED: IPRATROPIUM/ALBUTEROL 0.5-2.5 MG/3 ML AMPUL NEB SCH (10:15)
[2017-11-21] MEDS ORDERED: ONDANSETRON HCL INJ/PF 4 MG/2 ML SDV IV PRN (11:16)
[2017-11-21] MEDS ORDERED: ACETAMINOPHEN 325 MG TABLET PO PRN (11:16)
[2017-11-21] MEDS ORDERED: ALBUTEROL SULFATE HFA (90 MCG/PUFF) 200 PUFF/8.5 GM MDI IH PRN (11:22)
[2017-11-21 11:28] LABS: ARTERIAL BLOOD BASE EXCESS 9.2 mmol/L; ARTERIAL BLOOD H2CO3 1.63 mmol/L (1.05-1.35); ARTERIAL BLOOD HCO3 35.2 mmol/L (20-26); ARTERIAL BLOOD O2 SATURATION 97.9 % (94-98); ARTERIAL BLOOD PCO2 54.3 mmHg (35-45); ARTERIAL BLOOD PH 7.43 (7.35-7.45); ARTERIAL BLOOD PO2 106.3 mmHg (80-100); ARTERIAL BLOOD TOTAL CO2 36.8 mmol/L (21-25)
[2017-11-21 11:32] LABS: ARTERIAL BLOOD FIO2 2 L
[2017-11-21] MEDS ORDERED: DEXTROSE 50%-WATER 25 GM/50 ML DISP.SYRIN IV PRN ×2 (12:34)
[2017-11-21] MEDS ORDERED: GLUCAGON,HUMAN RECOMB 1 MG INJ IM PRN (12:34)
[2017-11-21] MEDS ORDERED: DEXTROSE 40% GEL 15 GM TUBE PO PRN ×2 (12:34)
--- NOTE | 2017-11-21 12:39 | PDOC H&P ---
History of Present Illness Admission Date/PCP: 11/21/17 11:35 Patient complains of: Shortness of breath History of Present Illness: TRENTON MCCOY is a 72 year old female who presented to the emergency room with increased shortness of breath. 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 The patient is a very poor historian and it is difficult to get a clear history. There are no family members in the room. The patient apparently has chronic respiratory failure on oxygen therapy at home. She has known COPD, diabetes, hypertension and diastolic congestive heart failure. She also has mild underlying dementia. She reports that she was recently diagnosed as an outpatient with pneumonia. She cannot recall when or what saw her. She is unable to tell me who her primary care provider is. She tells me that her oncologist is in [place] but she has not seen him since 2007. She cannot recall his name. In the emergency room the patient was found to be having evidence of COPD exacerbation and she was referred for admission. I initially placed in order to get a CT angiography of the patient's chest. Unfortunately she lost her IV access and at the time of my visit they are trying to replace her IV. Past Medical History Cardiac Medical History: Reports: Congestive Heart Failure, Coronary Artery Disease, Myocardial Infarction, Hypertension Denies: DVT, Hyperlipidema, Pulmonary Embolism Pulmonary Medical History: Reports: Asthma, Bronchitis, Chronic Obstructive Pulmonary Disease (COPD) - 2 L nasal home oxygen, Pneumonia, Respiratory Failure - Chronic respiratory failure Denies: Sleep Apnea, Tuberculosis Neurological Medical History: Denies: Seizures Endocrine Medical History: Reports: Diabetes Mellitus Type 2, Hypothyroidism Denies: Diabetes Mellitus Type 1, Hyperthyroidism Renal/ Medical History: Denies: End Stage Renal Disease Malignancy Medical History: Reports: Brain Cancer - Lung cancer with brain metastases, 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 GI Medical History: Reports: Gastroesophageal Reflux Disease Denies: Cirrhosis, Hepatitis Musculoskeltal Medical History: Reports: Arthritis Psychiatric Medical History: Reports: Dementia, Depression Denies: Bipolar Disorder Hematology: Reports: Anemia, Bleeding Tendencies Infectious Medical History: Reports: Clostridium Difficile Past Surgical History Past Surgical History: Reports: Cholecystectomy, Orthopedic Surgery - Foot surgery, Other - cataract bilateral Social History Information Source: Patient Lives with: Family Smoking Status: Former Smoker Frequency of Alcohol Use: None Hx Recreational Drug Use: No Drugs: None Hx Prescription Drug Abuse: No Family History Family History: COPD, Malignancy - Lung cancer Parental Family History Reviewed: Yes Children Family History Reviewed: Yes Sibling(s) Family History Reviewed.: Yes Medication/Allergy Home Medications: Albuterol Sulfate [Proair HFA Inhalation Aerosol 8.5 gm MDI] 2 puff IH Q4HP PRN 10/19/17 Amlodipine Besylate [Norvasc 2.5 mg Tablet] 2.5 mg PO Q12 10/19/17 Furosemide [Lasix] 20 mg PO BID 10/19/17 Levothyroxine Sodium [Synthroid 0.088 mg Tablet] 0.088 mg PO Q6AM 10/19/17 Lisinopril [Zestril] 5 mg PO DAILY 10/19/17 Metformin HCl [Metformin HCl ER] 500 mg PO WSUPPER 10/19/17 Pantoprazole Sodium [Protonix] 40 mg PO DAILY 10/19/17 Salmeterol Xinafoate [Serevent Diskus 50 Mcg/Dose 28 Dose/Diskus] 1 puff IH Q12 10/19/17 Tiotropium Ward [Spiriva Handihaler 18 mcg/dose (30 Dose)] 1 cap IH DAILY Lactobacillus Acidophilus [Bacid 250 mg Tablet] 250 mg PO BID #60 tab 11/01/17 Levothyroxine Sodium [Synthroid 0.075 mg Tablet] 0.075 mg PO Q6AM tablet Roflumilast [Daliresp 500 Mcg Tablet] 250 mcg PO DAILY #30 tablet 11/01/17 Tiotropium Ward [Spiriva Handihaler 5 Cap/Kit (18 Mcg/Cap)] 1 cap IH DAILY kit 11/01/17 Prednisone [Deltasone 20 mg Tablet] 3 tab PO DAILY 5 Days tablet 11/13/17 Allergies/Adverse Reactions: azithromycin Allergy (Verified 11/13/17 06:50) amoxicillin [Amoxicillin] Adverse Reaction (Verified 11/13/17 06:50) visual hallucinations erythromycin base [Erythromycin Base] Adverse Reaction (Verified 11/13/17 06:50) visual hallucinations Potassium Clavulanate * [From Augmentin] Adverse Reaction (Verified 11/13/17 06: 50) visual hallucinations Review of Systems Constitutional: PRESENT: weakness Eyes: ABSENT: visual disturbances Ears: ABSENT: hearing changes Nose, Mouth, and Throat: PRESENT: headache(s). ABSENT: mouth pain, sore throat Cardiovascular: PRESENT: dyspnea on exertion, palpitations Respiratory: PRESENT: cough, dyspnea, sputum. ABSENT: hemoptysis Gastrointestinal: ABSENT: abdominal pain, coffee ground emesis, constipation, diarrhea, dysphagia, heartburn, hematemesis, hematochezia, nausea, vomiting Genitourinary: ABSENT: difficulty urinating, dysuria, hematuria Musculoskeletal: PRESENT: back pain, muscle weakness Integumentary: ABSENT: diaphoresis, erythema, lesions, pruritus Neurological: PRESENT: confusion Psychiatric: ABSENT: anxiety, depression, homidical ideation, suicidal ideation Endocrine: ABSENT: cold intolerance, heat intolerance Physical Exam Vital Signs: Temp Pulse Resp BP Pulse Ox 98.7 F 18 127/82 H 100 11/21/17 04:49 11/21/17 07:01 11/21/17 07:01 11/21/17 07:01 General appearance: PRESENT: obese, well-developed, well-nourished, other - She is receiving oxygen via nasal cannula. She is awake alert and oriented 3 but does get confused while I am talking to her Head exam: PRESENT: atraumatic, normocephalic Eye exam: PRESENT: conjunctiva pink, EOMI, PERRLA. ABSENT: scleral icterus Ear exam: PRESENT: normal external ear exam Mouth exam: PRESENT: moist, tongue midline Throat exam: ABSENT: post pharyngeal erythema, tonsillar erythema Neck exam: ABSENT: carotid bruit, JVD, lymphadenopathy, thyromegaly Respiratory exam: PRESENT: wheezes - This was an anterior exam. She has wheezing noted throughout all lung curtis. She is diminished in the lower bases. This was not an ideal exam she was lying down Cardiovascular exam: PRESENT: tachycardia - She is quite tachycardic with a regular rhythm. ABSENT: diastolic murmur, rubs, systolic murmur GI/Abdominal exam: PRESENT: normal bowel sounds, soft. ABSENT: distended, guarding, mass, organolmegaly, rebound, tenderness Rectal exam: PRESENT: deferred Extremities exam: PRESENT: full ROM, pedal edema. ABSENT: calf tenderness, clubbing Neurological exam: PRESENT: alert, awake, oriented to person, oriented to place , oriented to time, oriented to situation, CN II-XII grossly intact, other - She does have some underlying confusion however. ABSENT: motor sensory deficit Psychiatric exam: PRESENT: normal mood. ABSENT: appropriate affect - She seems quite flippant, homicidal ideation, suicidal ideation Skin exam: PRESENT: dry, intact, warm. ABSENT: cyanosis, rash Results Impressions: Chest X-Ray 11/21/17 04:59 IMPRESSION: No significant change. Assessment & Plan - Diagnosis (1) COPD (chronic obstructive pulmonary disease) Qualifiers: COPD type: COPD with acute exacerbation Qualified Code(s): J44.1 - Chronic obstructive pulmonary disease with (acute) exacerbation Is this a current diagnosis for this admission?: Yes Plan: The patient will continue IV Solu-Medrol. I am going to start her on IV doxycycline. Chest x-ray did not reveal an underlying infiltrate but she reportedly was treated for pneumonia as an outpatient. I have looked back over her images from her past several hospitalizations. I am concerned for recurrence of her lung cancer. She will get a CT angiography of the chest today for further evaluation. (2) Encephalopathy Is this a current diagnosis for this admission?: Yes Plan: Nursing staff reports that she is a little more confused than she was when she first came into the hospital. I am concerned due to her history of malignancy and history of brain metastases. I will hold off on imaging of her brain until we get the results of her chest CT. We will keep a close eye on this as we go along. It could be due to underlying infection although she does not appear to be acutely ill. We will just keep an eye on this as we go along. (3) Elevated d-dimer Is this a current diagnosis for this admission?: Yes Plan: Again we will get a CT angiography for further evaluation (4) Pneumonia Is this a current diagnosis for this admission?: Yes Plan: She was recently treated for an underlying pneumonia. Concerns would be for gram positives and atypicals. I will empirically start her on IV doxycycline. We will follow-up with CT scan results. (5) History of lung cancer Is this a current diagnosis for this admission?: Yes Plan: With brain metastases. Reportedly this is been in remission for quite some time. I really would like to get a CT scan of her chest for further evaluation. We may need to image her brain as well. She is somewhat confused. (6) Diastolic congestive heart failure Qualifiers: Heart failure chronicity: chronic Qualified Code(s): I50.32 - Chronic diastolic (congestive) heart failure Is this a current diagnosis for this admission?: Yes Plan: At this point she appears to be euvolemic (7) Diabetes Is this a current diagnosis for this admission?: Yes Plan: For now we will check her blood sugar before meals at bedtime. She will have sliding scale insulin available as needed. I am waiting for the nursing staff and pharmacy to place her home medications in the computer so that I can reconcile them. (8) Coronary artery disease Is this a current diagnosis for this admission?: Yes Plan: No complaints of chest pain at this point. We will start her on her home medications when they are entered into the computer. (9) Essential hypertension Is this a current diagnosis for this admission?: Yes Plan: She reportedly has high blood pressure. It has been quite low here in the hospital. We will simply have IV hydralazine available for now. (10) Full code status Is this a current diagnosis for this admission?: Yes Plan: At this point the patient desires to be a full code. Further discussions will be had as we go along especially depending on what we find. - Time Time Spent: 50 to 70 Minutes - Inpatient Certification Medical Necessity: Need Close Monitoring Due to Risk of Patient Decompensation, Need for IV Antibiotics, Other - Inpatient hospitalization is recommended. I fully expect this patient's hospitalization to span greater than 2 midnights. She has known oxygen dependent COPD. She is acutely wheezing. I am concerned for recurrence of her lung cancer. I suspect she will be in the hospital for greater than 2 midnights.
[2017-11-21] MEDS ORDERED: METHYLPREDNISOLONE INJ 40 MG/1 ML SDV IV SCH (14:00)
[2017-11-21 15:17] LABS: INTERNATIONAL RATION (INR) 0.88; PROTHROMBIN TIME 12.4 SEC (11.4-15.4)
[2017-11-21 15:18] LABS: PARTIAL THROMBOPLASTIN TIME 20.3 SEC (23.5-35.8)
--- NOTE | 2017-11-21 17:54 | Operative Report ---
Operative Report DATE OF SURGERY: 11/21/17 PREOPERATIVE DIAGNOSIS: Critical need for venous access. COPD exacerbation. POSTOPERATIVE DIAGNOSIS: Same OPERATION: Attempted right subclavian central venous catheter placement. ultrasound-guided attempted right internal jugular central venous catheter placement. Placement of triple-lumen right femoral central venous catheter placed under ultrasound guidance. SURGEON: DANISH CALLEJAS ANESTHESIA: Local TISSUE REMOVED OR ALTERED: None COMPLICATIONS: None ESTIMATED BLOOD LOSS: 50 cc INTRAOPERATIVE FINDINGS: Able to cannulate the right subclavian vein but unable to feed guidewire. Small collapsing internal jugular vein. PROCEDURE: Informed consent was obtained. Procedure was done at the patient's bedside. Patient's right neck and chest were prepped and draped in usual sterile fashion. Local anesthetic was administered. The right subclavian vein was able to be cannulated but I could not feed the guidewire into the central circulation. My impression was that the vein was collapsing and patient was severely dehydrated. This site was aborted. The right internal jugular vein was attempted to be cannulated using ultrasound as a guidance. However the vein collapsed with each respiration and I was unable to cannulate it. With the above findings, attempt was made at the femoral vein. Patient's right groin was examined with ultrasound, demonstrating patent fairly large femoral vein. This site was marked. Patient's right groin was prepped and draped in usual sterile fashion. The right femoral vein was cannulated and guidewire was placed easily. The tract was dilated and the triple-lumen central venous catheter was placed via the Seldinger technique without difficulty. It withdrew blood and flushed easily. It was sutured in place. Dressings were applied. Patient tolerated procedure well with no apparent complications. Stat portable chest x-ray was ordered since attempts were made at the subclavian vein.
[2017-11-21] MEDS: IPRATROPIUM/ALBUTEROL 0.5-2.5 MG/3 ML AMPUL NEB SCH (17:59)
[2017-11-21] MEDS ORDERED: LACTOBACILLUS ACIDOPHILUS 250 MG TAB PO SCH (18:00)
[2017-11-21] MEDS ORDERED: FUROSEMIDE 20 MG TABLET PO SCH (18:00)
--- NOTE | 2017-11-21 19:22 | RADIOLOGY REPORT (SQ) ---
EXAM DESCRIPTION: CTA CHEST COMPLETED DATE/TIME: 11/21/2017 7:07 pm REASON FOR STUDY: hx lung ca, r/o PE, recent pna, hx chf COMPARISON: Chest x-ray 11/21/2017 CT 10/23/2017 TECHNIQUE: CT scan of the chest performed using helical scanning technique with dynamic intravenous contrast injection. Images reviewed with lung, soft tissue and bone windows. Reconstructed coronal and sagittal MPR images reviewed. Additional 3 dimensional post-processing performed to develop Maximal Intensity Projection images (ME P). All images stored on PACS. All CT scanners at this facility use dose modulation, iterative reconstruction, and/or weight based d osing when appropriate to reduce radiation dose to as low as reasonably achievable (ALARA). [facility]: Dose Right [facility]: CareDose [facility]: Dose Right [facility]: Teradose 4D [facility]: Nanotecture CONTRAST TYPE AND DOSE: contrast/concentration: Isovue 370.00 mg/ml; Total Contrast Delivered: 74.0 ml; Total Saline Delivered: 82.0 ml Contrast bolus optimized for the pulmonary arteries. Not diagnostic for the aorta. RENAL FUNCTION: BUN 26 creatinine 0.78 RADIATION DOSE: CT Rad equipment meets quality standard of care and radiation dose reduction techniq ues were employed. CTDIvol: 16.5 - 22.5 mGy. DLP: 874 mGy-cm. . LIMITATIONS: None. FINDINGS: LUNGS AND PLEURA: There is stable opacification the anterior to posterior to the right hil um. An old focal pulmonary lesions are seen. No infiltrates are present. There is no pleural effus ion at this time. AORTA AND GREAT VESSELS: No aneurysm. Contrast bolus not optimized for the aorta. HEART: No pericardial effusion. Moderate to marked coronary artery calcifications. PULMONARY ARTERIES: No emboli visualized in the main pulmonary arteries or the segmental branches. HILAR AND MEDIASTINAL STRUCTURES: Stable right hilar density is present. HARDWARE: None in the chest. UPPER ABDOMEN: No significant findings. Limited exam. THYROID AND OTHER SOFT TISSUES: No masses. No adenopathy. BONES: No acute or significant finding. 3D MIPS: Confirm above findings. OTHER: No other significant finding. IMPRESSION: 1. Stable right hilar density with changes in the lungs anterior and posterior to the h ilum possibly suggesting prior radiation. No acute findings are seen in the chest. 2. There is no evidence of pulmonary embolism. COMMENT: Quality ID # [id number]: Final reports with documentation of one or more dose reduction techniques (e.g., Automated exposure control, adjustment of the mA and/or kV according to patient size, use of iterative reconstruction technique) TECHNICAL DOCUMENTATION: JOB ID: [id number] [employer]- All Rights Reserved Reading location - IP/workstation name: [email or web address]
[2017-11-21] MEDS: INSULIN LISPRO 100 UNIT/ML 3 ML VIAL SUBCUT PRN (20:44)
[2017-11-21] MEDS ORDERED: AMLODIPINE BESYLATE 2.5 MG TABLET PO SCH (22:00)
[2017-11-22] MEDS: IPRATROPIUM/ALBUTEROL 0.5-2.5 MG/3 ML AMPUL NEB SCH ×4 (01:50→20:32)
[2017-11-22] MEDS: DOXYCYCLINE HYCLATE 100 MG in DEXTROSE 5%-WATER 250 ML IV SCH ×2 (03:22→12:50)
--- NOTE | 2017-11-22 03:47 | RADIOLOGY REPORT (SQ) ---
EXAM DESCRIPTION: CHEST 2 VIEWS CLINICAL HISTORY: 72 years Female, Attempt at central line placement COMPARISON: 4.24.18 NUMBER OF VIEWS/TECHNIQUE: 2, PA and Lateral LIMITATIONS: None. FINDINGS: Moderate right hilar scar/fibrosis pattern, normal cardiac silhouette, atherosclerosis, intact bony thorax. No pneumothorax. IMPRESSION: No significant change.
[2017-11-22] MEDS ORDERED: METHYLPREDNISOLONE INJ 40 MG/1 ML SDV IV ONE (04:45)
[2017-11-22] MEDS ORDERED: LACTOBACILLUS ACIDOPHILUS 250 MG TAB PO ONE (04:45)
[2017-11-22 05:24] LABS: HEMATOCRIT 28.6 % (36.0-47.0); HEMOGLOBIN 9.9 g/dL (12.0-15.5); MEAN CORPUSCULAR HGB CONC 34.5 g/dL (32.0-36.0); MEAN CORPUSCULAR VOLUME 96 fl (80-97); PLATELET COUNT 176 10^3/uL (150-450); RED BLOOD COUNT 2.98 10^6/uL (3.72-5.28); RED CELL DISTRIBUTION WIDTH 16.3 % (11.5-14.0); WHITE BLOOD COUNT 8.7 10^3/uL (4.0-10.5)
[2017-11-22] MEDS: LEVOTHYROXINE SODIUM 0.075 MG TABLET PO SCH (05:45)
[2017-11-22] MEDS: LANSOPRAZOLE 30 MG TAB.RAP.DR PO SCH ×2 (05:45→17:27)
[2017-11-22 05:52] LABS: ALANINE AMINOTRANSFERASE 41 U/L (9-52); ALKALINE PHOSPHATASE 61 U/L (38-126); ASPARTATE AMINO TRANSFERASE 15 U/L (14-36); BILIRUBIN,DIRECT 0.1 mg/dL (0.0-0.4); BILIRUBIN,TOTAL 0.1 mg/dL (0.2-1.3); BLOOD UREA NITROGEN 30 mg/dL (7-20); CALCIUM 8.7 mg/dL (8.4-10.2); CHLORIDE 99 mmol/L (98-107); GLUCOSE 112 mg/dL (75-110); PHOSPHORUS 3.1 mg/dL (2.5-4.5); POTASSIUM 3.6 mmol/L (3.6-5.0); SODIUM 142.7 mmol/L (137-145)
[2017-11-22 06:04] LABS: ANION GAP 3 (5-19)
[2017-11-22 06:06] LABS: CARBON DIOXIDE 41 mmol/L (22-30)
[2017-11-22 06:55] LABS: ARTERIAL BLOOD BASE EXCESS 12.6 mmol/L; ARTERIAL BLOOD H2CO3 1.59 mmol/L (1.05-1.35); ARTERIAL BLOOD HCO3 37.8 mmol/L (20-26); ARTERIAL BLOOD O2 SATURATION 99.3 % (94-98); ARTERIAL BLOOD PCO2 52.7 mmHg (35-45); ARTERIAL BLOOD PH 7.47 (7.35-7.45); ARTERIAL BLOOD PO2 174.8 mmHg (80-100); ARTERIAL BLOOD TOTAL CO2 39.4 mmol/L (21-25)
[2017-11-22 06:56] LABS: ARTERIAL BLOOD FIO2 4L
--- NOTE | 2017-11-22 07:32 | EKG REPORT ---
SEVERITY:- ABNORMAL ECG - SINUS RHYTHM RIGHT BUNDLE BRANCH BLOCK : Confirmed by: Issa Martinez MD 22-Nov-2017 07:31:04
[2017-11-22 07:39] LABS: PATH REVIEW PATHOLOGIST REVIEWED
[2017-11-22] MEDS ORDERED: LISINOPRIL 5 MG TABLET PO SCH (10:00)
[2017-11-22] MEDS: ROFLUMILAST 500 MCG TABLET PO SCH (10:06)
[2017-11-22] MEDS: LACTOBACILLUS ACIDOPHILUS 250 MG TAB PO SCH ×2 (10:08→17:27)
[2017-11-22] MEDS: DOCUSATE SODIUM 100 MG CAPSULE PO SCH (10:08)
[2017-11-22] MEDS: ENOXAPARIN SODIUM INJ 40 MG/0.4 ML DISP.SYRIN SUBCUT SCH (10:10)
[2017-11-22] MEDS: TIOTROPIUM BROMIDE DPI 5 CAP/KIT (18 MCG/CAP) IH SCH (11:35)
[2017-11-22] MEDS: METHYLPREDNISOLONE INJ 40 MG/1 ML SDV IV SCH ×2 (14:02→22:03)
[2017-11-22] MEDS: INSULIN LISPRO 100 UNIT/ML 3 ML VIAL SUBCUT PRN ×3 (14:02→23:05)
--- NOTE | 2017-11-22 14:45 | PDOC PROGRESS REPORT ---
Subjective Progress Note for:: 11/22/17 Subjective:: The patient is a 72 year old female who presented to the emergency room with increased shortness of breath. 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 The patient is a very poor historian and it is difficult to get a clear history. There are no family members in the room. The patient apparently has chronic respiratory failure on oxygen therapy at home. She has known COPD, diabetes, hypertension and diastolic congestive heart failure. She also has mild underlying dementia. She reports that she was recently diagnosed as an outpatient with pneumonia. She cannot recall when or what saw her. She is unable to tell me who her primary care provider is. She tells me that her oncologist is in [place] but she has not seen him since 2007. She cannot recall his name. In the emergency room the patient was found to be having evidence of COPD exacerbation and she was referred for admission. The patient had a CT angiography of the chest which was negative for underlying infiltrate or pulmonary embolism. Stable changes from her radiation therapy were noted. No evidence of recurrence of her lung cancer. She was started on IV doxycycline as well as IV Solu-Medrol. Today when I saw her that there still no family members at the bedside. She is awake and alert and still appears to be somewhat confused. She states that her breathing is somewhat better. She denies fever chills. No chest pain or heart palpitations. She states she has no abdominal pain. No nausea vomiting or diarrhea. No urinary complaints. Of note I am unsure how accurate this review of systems is as she appears to be quite confused Reason For Visit: RESPIRATORY FAILURE Physical Exam Vital Signs: Temp Pulse Resp BP Pulse Ox 98.4 F 104 H 18 127/64 H 96 11/22/17 11:05 11/22/17 13:43 11/22/17 13:43 11/22/17 11:05 11/22/17 13:43 Intake & Output 11/21/17 11/22/17 11/23/17 06:59 06:59 06:59 Intake Total 600 300 Balance 600 300 Weight 91.1 kg General appearance: PRESENT: no acute distress, disheveled, obese, well- developed, well-nourished Head exam: PRESENT: atraumatic, normocephalic Mouth exam: PRESENT: moist, tongue midline Respiratory exam: PRESENT: other - Coarse wheezing noted throughout all lung curtis. She is somewhat diminished as well Cardiovascular exam: PRESENT: RRR. ABSENT: diastolic murmur, rubs, systolic murmur GI/Abdominal exam: PRESENT: normal bowel sounds, soft. ABSENT: distended, guarding, mass, organolmegaly, rebound, tenderness Rectal exam: PRESENT: deferred Extremities exam: PRESENT: full ROM. ABSENT: calf tenderness, clubbing, pedal edema Neurological exam: PRESENT: alert, awake, oriented to person, oriented to place. ABSENT: oriented to time, oriented to situation Psychiatric exam: PRESENT: appropriate affect, normal mood. ABSENT: homicidal ideation, suicidal ideation Skin exam: PRESENT: dry, intact, warm. ABSENT: cyanosis, rash Results Laboratory Results: 11/22/17 05:00 11/22/17 05:00 11/21/17 11/22/17 11/22/17 14:36 05:00 05:00 WBC 8.7 RBC 2.98 L Hgb 9.9 L Hct 28.6 L MCV 96 MCH 33.0 MCHC 34.5 RDW 16.3 H Plt Count 176 Carbonic Acid HCO3/H2CO3 Ratio ABG pH ABG pCO2 ABG pO2 ABG HCO3 ABG O2 Saturation ABG Base Excess FiO2 Sodium 142.7 Potassium 3.6 Chloride 99 Carbon Dioxide 41 H* Anion Gap 3 L BUN 30 H Creatinine 0.96 Est GFR ( Amer) > 60 Est GFR (Non-Af Amer) 57 L Glucose 112 H Calcium 8.7 Phosphorus 3.1 Magnesium 2.3 Total Bilirubin 0.1 L AST 15 ALT 41 Alkaline Phosphatase 61 Ammonia < 8.7 L Total Protein 5.0 L Albumin 3.0 L 11/22/17 06:35 WBC RBC Hgb Hct MCV MCH MCHC RDW Plt Count Carbonic Acid 1.59 H HCO3/H2CO3 Ratio 23:1 ABG pH 7.47 H ABG pCO2 52.7 H ABG pO2 174.8 H ABG HCO3 37.8 H ABG O2 Saturation 99.3 H ABG Base Excess 12.6 FiO2 4L Sodium Potassium Chloride Carbon Dioxide Anion Gap BUN Creatinine Est GFR ( Amer) Est GFR (Non-Af Amer) Glucose Calcium Phosphorus Magnesium Total Bilirubin AST ALT Alkaline Phosphatase Ammonia Total Protein Albumin 11/22/17 05:00 NT-Pro-B Natriuret Pep 864 Impressions: Chest/Abdomen CTA 11/21/17 00:00 IMPRESSION: 1. Stable right hilar density with changes in the lungs anterior and posterior to the hilum possibly suggesting prior radiation. No acute findings are seen in the chest. 2. There is no evidence of pulmonary embolism. Chest X-Ray 11/21/17 04:59 IMPRESSION: No significant change. Assessment & Plan - Diagnosis (1) COPD (chronic obstructive pulmonary disease) Qualifiers: COPD type: COPD with acute exacerbation Qualified Code(s): J44.1 - Chronic obstructive pulmonary disease with (acute) exacerbation Is this a current diagnosis for this admission?: Yes Plan: She still has coarse wheezing throughout all lung curtis. The patient will continue IV Solu-Medrol. She can continue IV doxycycline. This is day #2 of treatment. (2) Encephalopathy Is this a current diagnosis for this admission?: Yes Plan: Yesterday the nursing staff reports that she was a little more confused than she was when she first came into the hospital. She may have some hypercapnia (3) Elevated d-dimer Is this a current diagnosis for this admission?: Yes Plan: CT angiography was negative for pulmonary embolus (4) Pneumonia Is this a current diagnosis for this admission?: Yes Plan: Ruled out. CT angiography did not show an underlying infiltrate. She was recently treated for an underlying pneumonia. Concerns would be for gram positives and atypicals. She has been started on doxycycline. She likely has an acute bronchitis at this point. This is day #2 of treatment with doxycycline (5) History of lung cancer Is this a current diagnosis for this admission?: Yes Plan: Reportedly with a history of brain metastases. CT scan of the chest did not reveal any recurrence of her cancer (6) Diastolic congestive heart failure Qualifiers: Heart failure chronicity: chronic Qualified Code(s): I50.32 - Chronic diastolic (congestive) heart failure Is this a current diagnosis for this admission?: Yes Plan: At this point she appears to be euvolemic (7) Diabetes Is this a current diagnosis for this admission?: Yes Plan: For now we will check her blood sugar before meals at bedtime. She will have sliding scale insulin available as needed. I am waiting for the nursing staff and pharmacy to place her home medications in the computer so that I can reconcile them. (8) Coronary artery disease Is this a current diagnosis for this admission?: Yes Plan: No complaints of chest pain at this point. She has been started back on her home medications (9) Essential hypertension Is this a current diagnosis for this admission?: Yes Plan: She reportedly has high blood pressure. It has been quite low here in the hospital. I have started her back on her low-dose lisinopril and Lasix. We will continue to hold her amlodipine for now. (10) Full code status Is this a current diagnosis for this admission?: Yes - Time Time Spent with patient: 25-34 minutes - Inpatient Certification Medical Necessity: Other - Inpatient hospitalization remains necessary. The patient is requiring parenteral steroids for COPD exacerbation. Timing of disposition will be determined by her clinical course
[2017-11-22] MEDS: FUROSEMIDE 20 MG TABLET PO SCH (17:26)
[2017-11-22] MEDS: OXYCODONE-ACETAMINOPHEN 5-325 MG TABLET PO SCH (22:03)
[2017-11-23] MEDS: DOXYCYCLINE HYCLATE 100 MG in DEXTROSE 5%-WATER 250 ML IV SCH (00:14)
[2017-11-23] MEDS: IPRATROPIUM/ALBUTEROL 0.5-2.5 MG/3 ML AMPUL NEB SCH ×4 (01:51→20:34)
[2017-11-23] MEDS: METHYLPREDNISOLONE INJ 40 MG/1 ML SDV IV SCH (06:06)
[2017-11-23] MEDS: LANSOPRAZOLE 30 MG TAB.RAP.DR PO SCH ×2 (06:06→17:14)
[2017-11-23] MEDS: LEVOTHYROXINE SODIUM 0.075 MG TABLET PO SCH (06:06)
[2017-11-23 06:40] LABS: HEMATOCRIT 29.5 % (36.0-47.0); HEMOGLOBIN 9.9 g/dL (12.0-15.5); MEAN CORPUSCULAR HEMOGLOBIN 32.2 pg (27.0-33.4); MEAN CORPUSCULAR HGB CONC 33.6 g/dL (32.0-36.0); MEAN CORPUSCULAR VOLUME 96 fl (80-97); PLATELET COUNT 166 10^3/uL (150-450); RED BLOOD COUNT 3.08 10^6/uL (3.72-5.28); RED CELL DISTRIBUTION WIDTH 16.7 % (11.5-14.0); WHITE BLOOD COUNT 9.1 10^3/uL (4.0-10.5)
[2017-11-23 06:58] LABS: ANION GAP 5 (5-19); BLOOD UREA NITROGEN 26 mg/dL (7-20); CALCIUM 8.6 mg/dL (8.4-10.2); CARBON DIOXIDE 39 mmol/L (22-30); CHLORIDE 100 mmol/L (98-107); GLUCOSE 141 mg/dL (75-110)
[2017-11-23 07:24] LABS: ABSOLUTE LYMPHOCYTES# (MANUAL) 0.6 10^3/uL (0.5-4.7); ABSOLUTE MONOCYTES # (MANUAL) 0.3 10^3/uL (0.1-1.4); ABSOLUTE NEUTROPHILS# (MANUAL) 8.2 10^3/uL (1.7-8.2); BAND NEUTROPHILS % (MANUAL) 1 % (3-5); BASOPHILS % (MANUAL) 0 % (0-2); EOSINOPHILS % (MANUAL) 0 % (0-6); LYMPHOCYTES % (MANUAL) 7 % (13-45); MONOCYTES % (MANUAL) 3 % (3-13); SEGMENTED NEUTROPHILS % (MAN) 89 % (42-78); TOTAL CELLS COUNTED 100
[2017-11-23 07:25] LABS: ANISOCYTOSIS 1+; HYPOCHROMASIA 1+; POLYCHROMASIA SLIGHT; TOXIC GRANULATION SLIGHT
[2017-11-23 07:26] LABS: PLATELET COMMENT ADEQUATE
[2017-11-23] MEDS: INSULIN LISPRO 100 UNIT/ML 3 ML VIAL SUBCUT PRN ×3 (09:18→18:00)
[2017-11-23] MEDS: LACTOBACILLUS ACIDOPHILUS 250 MG TAB PO SCH ×2 (09:26→17:14)
[2017-11-23] MEDS: LEVOTHYROXINE SODIUM 0.088 MG TABLET PO SCH (09:26)
[2017-11-23] MEDS: DOCUSATE SODIUM 100 MG CAPSULE PO SCH (09:26)
[2017-11-23] MEDS: LISINOPRIL 5 MG TABLET PO SCH (09:26)
[2017-11-23] MEDS: OXYCODONE-ACETAMINOPHEN 5-325 MG TABLET PO SCH ×2 (09:27→21:09)
[2017-11-23] MEDS: FUROSEMIDE 20 MG TABLET PO SCH (09:27)
[2017-11-23] MEDS: ROFLUMILAST 500 MCG TABLET PO SCH (09:27)
[2017-11-23] MEDS: TIOTROPIUM BROMIDE DPI 5 CAP/KIT (18 MCG/CAP) IH SCH (09:28)
[2017-11-23] MEDS ORDERED: AMLODIPINE BESYLATE 10 MG TABLET PO SCH (10:00)
[2017-11-23] MEDS: ENOXAPARIN SODIUM INJ 40 MG/0.4 ML DISP.SYRIN SUBCUT SCH (11:12)
--- NOTE | 2017-11-23 11:59 | PDOC PROGRESS REPORT ---
Subjective Progress Note for:: 11/23/17 Subjective:: Slowly feeling better. Sats noted to be about 88% at rest. She drops down to about 80 with any exertion Reason For Visit: RESPIRATORY FAILURE Physical Exam Vital Signs: Temp Pulse Resp BP Pulse Ox 98.0 F 102 H 18 117/65 100 11/23/17 11:05 11/23/17 11:05 11/23/17 11:05 11/23/17 11:05 11/23/17 11:05 Intake & Output 11/22/17 11/23/17 11/24/17 06:59 06:59 06:59 Intake Total 600 1495 400 Balance 600 1495 400 Weight 91.1 kg 92.2 kg General appearance: PRESENT: no acute distress, obese Respiratory exam: PRESENT: decreased breath sounds, wheezes - Bilateral expiratory Cardiovascular exam: PRESENT: RRR GI/Abdominal exam: PRESENT: soft Neurological exam: PRESENT: alert Psychiatric exam: PRESENT: appropriate affect Skin exam: PRESENT: warm Results Laboratory Results: 11/23/17 06:10 11/23/17 06:10 11/23/17 11/23/17 06:10 06:10 WBC 9.1 RBC 3.08 L Hgb 9.9 L Hct 29.5 L MCV 96 MCH 32.2 MCHC 33.6 RDW 16.7 H Plt Count 166 Seg Neutrophils % Not Reportable Lymphocytes % Not Reportable Monocytes % Not Reportable Eosinophils % Not Reportable Basophils % Not Reportable Absolute Neutrophils Not Reportable Absolute Lymphocytes Not Reportable Absolute Monocytes Not Reportable Absolute Eosinophils Not Reportable Absolute Basophils Not Reportable Sodium 144.0 Potassium 4.0 Chloride 100 Carbon Dioxide 39 H Anion Gap 5 BUN 26 H Creatinine 0.70 Est GFR ( Amer) > 60 Est GFR (Non-Af Amer) > 60 Glucose 141 H Calcium 8.6 Magnesium 2.0 11/22/17 05:00 NT-Pro-B Natriuret Pep 864 Impressions: Chest/Abdomen CTA 11/21/17 00:00 IMPRESSION: 1. Stable right hilar density with changes in the lungs anterior and posterior to the hilum possibly suggesting prior radiation. No acute findings are seen in the chest. 2. There is no evidence of pulmonary embolism. Chest X-Ray 11/21/17 04:59 IMPRESSION: No significant change. Assessment & Plan - Diagnosis (1) Acute hypoxemic respiratory failure Is this a current diagnosis for this admission?: Yes Plan: Due to COPD exacerbation and diastolic heart failure (2) Acute and chronic respiratory failure with hypercapnia Is this a current diagnosis for this admission?: Yes (3) CHF with left ventricular diastolic dysfunction, NYHA class 1 Is this a current diagnosis for this admission?: Yes Plan: Increase her Lasix and change her to IV (4) COPD exacerbation Is this a current diagnosis for this admission?: Yes Plan: Steroids, nebulizers, aggressive pulmonary toilet, wean oxygen as tolerated. (5) Type 2 diabetes mellitus Qualifiers: Diabetes mellitus mcfp insulin use: without mcfp use Diabetes mellitus complication status: with unspecified complications Qualified Code(s) : E11.8 - Type 2 diabetes mellitus with unspecified complications Is this a current diagnosis for this admission?: Yes (6) Essential hypertension Is this a current diagnosis for this admission?: Yes Plan: Stable continue home medications (7) Hypothyroid Qualifiers: Hypothyroidism type: unspecified Qualified Code(s): E03.9 - Hypothyroidism , unspecified Is this a current diagnosis for this admission?: Yes Plan: Continue home medications (8) Anemia Qualifiers: Anemia type: unspecified type Qualified Code(s): D64.9 - Anemia, unspecified Is this a current diagnosis for this admission?: Yes Plan: Stable. Chronic disease. No further workup at this time. (9) Obesity with serious comorbidity Qualifiers: Obesity type: due to excess calories Obesity classification: adult class 1 (BMI 30 ? 34.9) Body mass index: BMI 31.0-31.9 Qualified Code(s): E66.09 - Other obesity due to excess calories; Z68.31 - Body mass index (BMI) 31.0-31.9, adult; Z68.31 - Body mass index (BMI) 31.0-31.9, adult Is this a current diagnosis for this admission?: Yes (10) History of lung cancer Is this a current diagnosis for this admission?: Yes Plan: Status post chemo and radiation therapy. In remission
[2017-11-23] MEDS ORDERED: IPRATROPIUM/ALBUTEROL 0.5-2.5 MG/3 ML AMPUL NEB PRN (12:01)
[2017-11-23] MEDS ORDERED: FUROSEMIDE INJ/PF 40 MG/4 ML SDV IV SCH (14:00)
[2017-11-23] MEDS: IRON SUCROSE COMPLEX INJ/PF 100 MG/5 ML SDV IV SCH (14:29)
[2017-11-23] MEDS ORDERED: FUROSEMIDE INJ/PF 40 MG/4 ML SDV IV ONE (14:30)
[2017-11-23] MEDS: DOXYCYCLINE HYCLATE 100 MG TABLET PO SCH (21:09)
[2017-11-24] MEDS: LEVOTHYROXINE SODIUM 0.075 MG TABLET PO SCH (06:31)
[2017-11-24] MEDS: LANSOPRAZOLE 30 MG TAB.RAP.DR PO SCH (06:32)
[2017-11-24] MEDS ORDERED: FUROSEMIDE INJ/PF 40 MG/4 ML SDV IV SCH (08:00)
[2017-11-24] MEDS: IPRATROPIUM/ALBUTEROL 0.5-2.5 MG/3 ML AMPUL NEB SCH ×2 (09:44→12:09)
[2017-11-24] MEDS ORDERED: PREDNISONE 20 MG TABLET PO SCH (10:00)
[2017-11-24] MEDS: ENOXAPARIN SODIUM INJ 40 MG/0.4 ML DISP.SYRIN SUBCUT SCH (10:15)
[2017-11-24] MEDS: OXYCODONE-ACETAMINOPHEN 5-325 MG TABLET PO SCH (10:16)
[2017-11-24] MEDS: DOCUSATE SODIUM 100 MG CAPSULE PO SCH (10:16)
[2017-11-24] MEDS: LEVOTHYROXINE SODIUM 0.088 MG TABLET PO SCH (10:16)
[2017-11-24] MEDS: DOXYCYCLINE HYCLATE 100 MG TABLET PO SCH (10:17)
[2017-11-24] MEDS: LISINOPRIL 5 MG TABLET PO SCH (10:17)
[2017-11-24] MEDS: LACTOBACILLUS ACIDOPHILUS 250 MG TAB PO SCH (10:17)
[2017-11-24] MEDS: ROFLUMILAST 500 MCG TABLET PO SCH (10:21)
[2017-11-24] MEDS: TIOTROPIUM BROMIDE DPI 5 CAP/KIT (18 MCG/CAP) IH SCH (10:23)
[2017-11-24] MEDS: IRON SUCROSE COMPLEX INJ/PF 100 MG/5 ML SDV IV SCH (13:17)
[2017-11-24 13:43] VITALS: BP 117/63
--- NOTE | 2017-11-24 15:18 | PDOC DISCHARGE SUMMARY ---
General - Admit/Disc Date/PCP Admission Date/Primary Care Provider: 11/21/17 11:35 Discharge Date: 11/24/17 - Discharge Diagnosis (1) Acute hypoxemic respiratory failure Is this a current diagnosis for this admission?: Yes Summary: Due to diastolic heart failure and a COPD exacerbation. Progressing to baseline. Patient states she is better and is requesting discharge (2) Acute and chronic respiratory failure with hypercapnia Is this a current diagnosis for this admission?: Yes (3) CHF with left ventricular diastolic dysfunction, NYHA class 1 Is this a current diagnosis for this admission?: Yes Summary: Diuresed (4) COPD exacerbation Is this a current diagnosis for this admission?: Yes Summary: Treated with steroids, nebulizers, empiric antibiotics (5) Type 2 diabetes mellitus Is this a current diagnosis for this admission?: Yes Summary: Home medications were continued and she was covered with a sliding scale (6) Essential hypertension Is this a current diagnosis for this admission?: Yes Summary: Home medications were continued (7) Hypothyroid Is this a current diagnosis for this admission?: Yes Summary: Home medications were continued (8) Anemia Is this a current diagnosis for this admission?: Yes (9) Obesity with serious comorbidity Is this a current diagnosis for this admission?: Yes (10) History of lung cancer Is this a current diagnosis for this admission?: Yes - Additional Information Resuscitation Status: Full Code Discharge Diet: Diabetic Discharge Activity: Activity As Tolerated Prescriptions: Ascorbic Acid [Vitamin C 500 mg Tablet] 500 mg PO BIDPCBS #60 tablet Diaper,Brief,Adult, Disposable [Maxicare] 1 each MC Q6 #120 each Doxycycline Hyclate [Vibramycin 100 mg Tablet] 100 mg PO Q12 #10 tablet Ferrous Sulfate [Albafort] 325 mg PO BIDPCBS #60 tablet Ipratropium/Albuterol Sulfate [Duoneb 3 ml Ampul] 3 ml NEB [id number] #120 vial.neb Lactose-Reduced Food [Ensure Immune Health] 237 ml PO BID #60 bot Levalbuterol HCl [Levalbuterol Concentrate] 1.25 mg NEB Q4HP PRN #90 vial.neb PRN Reason: FOR SOB/WHEEZING Prednisone [Deltasone 20 mg Tablet] 20 mg PO ASDIR #30 tablet Tiotropium [place] [Spiriva Handihaler 5 Cap/Kit (18 Mcg/Cap)] 1 puff IH DAILY # 30 dose Home Medications: Furosemide [Lasix 20 mg Tablet] 20 mg PO BID 11/21/17 Glimepiride [Amaryl 1 mg Tablet] 1 mg PO DAILY 11/21/17 Levothyroxine Sodium [Synthroid 0.088 mg Tablet] 0.088 mg PO DAILY 11/21/17 Lisinopril [Prinivil 5 mg Tablet] 5 mg PO DAILY 11/21/17 Metformin HCl [Metformin HCl ER] 500 mg PO WSUPPER 11/21/17 Oxycodone HCl/Acetaminophen [Percocet 5-325 mg Tablet] 1 tab PO Q12 11/21/17 Pantoprazole Sodium [Protonix] 40 mg PO DAILY 11/21/17 Tramadol HCl [Ultram 50 mg Tablet] 50 mg PO DAILYP PRN 11/21/17 Ascorbic Acid [Vitamin C 500 mg Tablet] 500 mg PO BIDPCBS #60 tablet 11/24/17 Diaper,Brief,Adult, Disposable [Maxicare] 1 each MC Q6 #120 each 11/24/17 Docusate Sodium [Colace 100 mg Capsule] 100 mg PO DAILY capsule 11/24/17 Doxycycline Hyclate [Vibramycin 100 mg Tablet] 100 mg PO Q12 #10 tablet Ferrous Sulfate [Albafort] 325 mg PO BIDPCBS #60 tablet 11/24/17 Ipratropium/Albuterol Sulfate [Duoneb 3 ml Ampul] 3 ml [facility] [id number] #120 vial.[facility] 11/24/17 Lactose-Reduced Food [Ensure Immune Health] 237 ml PO BID #60 bot 11/24/17 Levalbuterol HCl [Levalbuterol Concentrate] 1.25 mg NEB Q4HP PRN #90 vial.[facility] Prednisone [Deltasone 20 mg Tablet] 20 mg PO ASDIR #30 tablet 11/24/17 Tiotropium [place] [Spiriva Handihaler 5 Cap/Kit (18 Mcg/Cap)] 1 puff IH DAILY # 30 dose 11/24/17 History of Present Illness History of Present Illness: TRENTON MCCOY is a 72 year old female who presented to the emergency room with increased shortness of breath. 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 The patient is a very poor historian and it is difficult to get a clear history. There are no family members in the room. The patient apparently has chronic respiratory failure on oxygen therapy at home. She has known COPD, diabetes, hypertension and diastolic congestive heart failure. She also has mild underlying dementia. She reports that she was recently diagnosed as an outpatient with pneumonia. She cannot recall when or what saw her. She is unable to tell me who her primary care provider is. She tells me that her oncologist is in [place] but she has not seen him since 2007. She cannot recall his name. In the emergency room the patient was found to be having evidence of COPD exacerbation and she was referred for admission. I initially placed in order to get a CT angiography of the patient's chest. Unfortunately she lost her IV access and at the time of my visit they are trying to replace her IV. Hospital Course Hospital Course: She was treated empirically with steroids, nebulizers, doxycycline. CT chest showed stable right hilar density with changes in the lungs anterior and posterior to the hilum suggesting prior radiation therapy. Presently she reports feeling better and is requesting to be discharged. Note that her UA only had 5 WBCs but she grew out greater than 100,000 colonies. I doubt the significance of this, but I did put her on 4 days of Bactrim to be safe. Physical Exam Vital Signs: Temp Pulse Resp BP Pulse Ox 98.4 F 102 H 18 117/63 96 11/24/17 13:42 11/24/17 13:42 11/24/17 13:42 11/24/17 13:42 11/24/17 13:42 Intake & Output 11/23/17 11/24/17 11/25/17 06:59 06:59 06:59 Intake Total 1495 1260 200 Balance 1495 1260 200 Weight 203 lb 4.259 oz 190 lb 14.725 oz General appearance: PRESENT: no acute distress, disheveled Respiratory exam: PRESENT: clear to auscultation jeff Cardiovascular exam: PRESENT: RRR GI/Abdominal exam: PRESENT: soft Neurological exam: PRESENT: alert Psychiatric exam: PRESENT: appropriate affect Skin exam: PRESENT: dry, warm Results Laboratory Results: 11/23/17 06:10 11/23/17 06:10 11/22/17 05:00 NT-Pro-B Natriuret Pep 864 Impressions: Chest/Abdomen CTA 11/21/17 00:00 IMPRESSION: 1. Stable right hilar density with changes in the lungs anterior and posterior to the hilum possibly suggesting prior radiation. No acute findings are seen in the chest. 2. There is no evidence of pulmonary embolism. Chest X-Ray 11/21/17 04:59 IMPRESSION: No significant change. Qualifiers - * PATIENT BEING DISCHARGED WITH ANY OF THE FOLLOWING DIAGNOSIS: No
== END 2017-11-24 14:15 | disposition home health service (06) | DRG 190 ==
LOC: ER 04:48 → EH 11:35 → 3S 11-22 03:50
PROVIDERS: ADMIT Internal Medicine; ATTEND Internal Medicine
PROC: 06HM33Z Insertion of Infusion Device into Right Femoral Vein, Percutaneous Approach (ICD-10-PCS; principal; 2017-11-21)
DX: J44.1 Chronic obstructive pulmonary disease with (acute) exacerbation (principal); J96.22 Acute and chronic respiratory failure with hypercapnia; G93.40 Encephalopathy, unspecified; J96.21 Acute and chronic respiratory failure with hypoxia; I50.32 Chronic diastolic (congestive) heart failure; I11.0 Hypertensive heart disease with heart failure; E11.9 Type 2 diabetes mellitus without complications; I25.10 Atherosclerotic heart disease of native coronary artery without angina pectoris; F03.90 Unspecified dementia, unspecified severity, without behavioral disturbance, psychotic disturbance, mood disturbance, and anxiety; I25.2 Old myocardial infarction; Z99.81 Dependence on supplemental oxygen; E03.9 Hypothyroidism, unspecified; Z85.118 Personal history of other malignant neoplasm of bronchus and lung; E86.0 Dehydration; Z85.841 Personal history of malignant neoplasm of brain; D64.9 Anemia, unspecified; I87.2 Venous insufficiency (chronic) (peripheral); K21.9 Gastro-esophageal reflux disease without esophagitis; Z90.49 Acquired absence of other specified parts of digestive tract; F32.9 Major depressive disorder, single episode, unspecified; M19.90 Unspecified osteoarthritis, unspecified site; Z87.891 Personal history of nicotine dependence; Z79.84 Long term (current) use of oral hypoglycemic drugs; Z88.0 Allergy status to penicillin; E66.9 Obesity, unspecified; R74.8 Abnormal levels of other serum enzymes; Z92.3 Personal history of irradiation; Z92.21 Personal history of antineoplastic chemotherapy
CPT/HCPCS: 36415; 71045; 71046; 71275; 80048; 80053; 80076; 81001; 82140; 82803; 82962; 83735; 83880; 84100; 85025; 85027; 85379; 85610; 85730; 87040; 87086; 87088; 87186; 93005; 93010; 94640; 96365; 96375; 99285; C1751; C1769; G8978-GP; G8979-GP; J1650; J1756; J1815; J1940; J2920; J2930; J3475; J3490; J7060; J7512; J7620

== ENCOUNTER 2017-11-25 03:11 | Emergency (ER) | payer MEDICARE, OTHER ==
[2017-11-25] MEDS ORDERED: METHYLPREDNISOLONE INJ 125 MG/2 ML SDV IV ONE (03:37)
[2017-11-25] MEDS ORDERED: IPRATROPIUM/ALBUTEROL 0.5-2.5 MG/3 ML AMPUL NEB ONE (03:37)
[2017-11-25] MEDS ORDERED: ALBUTEROL SULFATE 0.083% NEB 2.5 MG/3 ML AMPUL NEB SCH (03:39)
--- NOTE | 2017-11-25 03:40 | ER Document Report ---
ED Respiratory Problem - General Chief Complaint: Shortness Of Breath Stated Complaint: DIFFICULTY BREATHING Time Seen by Provider: 11/25/17 03:36 Notes: The patient is a 72-year-old female, past medical history COPD, metastatic lung cancer to the brain, chronic back pain, presents with wheezing and shortness of breath. She was just discharged from the hospital yesterday for the same exact symptoms. She received a DuoNeb by EMS with some relief of her symptoms. Patient denies chest pain, leg swelling, nausea, vomiting, back pain, hemoptysis , fevers or abdominal pain. TRAVEL OUTSIDE OF THE [place] IN LAST 30 DAYS: No - Related Data Allergies/Adverse Reactions: azithromycin Allergy (Verified 11/13/17 06:50) amoxicillin [Amoxicillin] Adverse Reaction (Verified 11/13/17 06:50) visual hallucinations erythromycin base [Erythromycin Base] Adverse Reaction (Verified 11/13/17 06:50) visual hallucinations Potassium Clavulanate * [From Augmentin] Adverse Reaction (Verified 11/13/17 06: 50) visual hallucinations Past Medical History - General Information source: Patient - Social History Smoking Status: Unknown if Ever Smoked Family History: COPD, Malignancy - Lung cancer - Past Medical History Cardiac Medical History: Reports: Hx Congestive Heart Failure, Hx Coronary Artery Disease, Hx Heart Attack, Hx Hypertension Denies: Hx DVT, Hx Hypercholesterolemia, Hx Pulmonary Embolism Pulmonary Medical History: Reports: Hx Asthma, Hx Bronchitis, Hx COPD - 2 L nasal home oxygen, Hx Pneumonia, Hx Respiratory Failure - Chronic respiratory failure Denies: Hx Sleep Apnea, Hx Tuberculosis Neurological Medical History: Denies: Hx Seizures Endocrine Medical History: Reports: Hx Diabetes Mellitus Type 2, Hx Hypothyroidism. 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 Denies: Hx Cirrhosis, Hx Hepatitis, Hx Ulcer Musculoskeltal Medical History: Reports Hx Arthritis, Denies Hx Multiple Sclerosis, Reports Hx Musculoskeletal Deformity, Reports Hx Musculoskeletal Trauma Psychiatric Medical History: Reports: Hx Dementia, Hx Depression Denies: Hx Bipolar Disorder, Hx Schizophrenia Infectious Medical History: Reports: Hx C-Diff. Denies: Hx Hepatitis Past Surgical History: Reports: Hx Cholecystectomy, Hx Orthopedic Surgery - Foot surgery, Other - cataract bilateral - Immunizations Hx Diphtheria, Pertussis, Tetanus Vaccination: Yes Hx Pneumococcal Vaccination: 08/30/12 Review of Systems - Review of Systems Notes: REVIEW OF SYSTEMS: CONSTITUTIONAL: -fevers, -chills EENT: -eye pain, -difficulty swallowing, -nasal congestion CARDIOVASCULAR: -chest pain, -syncope. RESPIRATORY: -cough, +SOB GASTROINTESTINAL: -abdominal pain, -nausea, -vomiting, -diarrhea GENITOURINARY: -dysuria, -hematuria MUSCULOSKELETAL: -back pain, -neck pain SKIN: -rash or skin lesions. HEMATOLOGIC: -easy bruising or bleeding. LYMPHATIC: -swollen, enlarged glands. NEUROLOGICAL: -altered mental status or loss of consciousness, -headache, - neurologic symptoms PSYCHIATRIC: -anxiety, -depression. ALL OTHER SYSTEMS REVIEWED AND NEGATIVE. Physical Exam - Notes Notes: PHYSICAL EXAMINATION: GENERAL: Well-appearing, well-nourished and in no acute distress. HEAD: Atraumatic, normocephalic. EYES: Pupils equal round and reactive to light, extraocular movements intact, sclera anicteric, conjunctiva are normal. ENT: nares patent, oropharynx clear without exudates. Moist mucous membranes. NECK: Normal range of motion, supple without lymphadenopathy LUNGS: No respiratory distress. Mild and expiratory wheezes. HEART: Tachycardia, regular rhythm ABDOMEN: Soft, nontender, normoactive bowel sounds. No guarding, no rebound. No masses appreciated. EXTREMITIES: Normal range of motion, no pitting or edema. No cyanosis. NEUROLOGICAL: Moving all 4 extremities. SKIN: Warm, Dry, normal turgor, no rashes or lesions noted. Course - Re-evaluation Re-evalutation: Patient arrives with wheezing. She is not hypoxic and is speaking full sentences. She was provided 3 duonebs and Solu-Medrol. After her breathing treatments, she feels much better and is requesting discharge. Chest x-ray does not show any acute findings and blood work is unremarkable, other than a slight leukocytosis, which is most likely related to her steroid use as she does not have a fever or source of infection. She is tachycardic after her breathing treatments, but this is common for her. She recently had a CTA this week that did not show any PEs. Patient ambulated without any desaturation or increased work of breathing. 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 Given very strict return precautions and she understands. - Laboratory Result Diagrams: 11/25/17 03:30 11/25/17 03:30 Laboratory results interpreted by me: 11/25/17 11/25/17 11/25/17 03:30 03:30 03:30 WBC 12.2 H RBC 3.38 L Hgb 10.8 L Hct 32.4 L RDW 16.6 H Seg Neuts % (Manual) 89 H Lymphocytes % (Manual) 2 L Monocytes % (Manual) 2 L Metamyelocytes % 1 H Myelocytes % 1 H Abs Neuts (Manual) 11.7 H Abs Lymphs (Manual) 0.2 L VBG HCO3 34.5 H Potassium 3.5 L Chloride 97 L Carbon Dioxide 32 H BUN 29 H Glucose 241 H Creatine Kinase < 20 L Total Protein 5.3 L Albumin 3.3 L - Diagnostic Test Radiology reviewed: Image reviewed, Reports reviewed Radiology results interpreted by me: CXR: NAD - EKG Interpretation by Me EKG shows normal: Sinus rhythm, [place], QRS Complexes, ST-T Waves Rate: Tachycardia [place]/QRS: RBBB When compared to previous EKG there are: No significant change Discharge - Discharge Clinical Impression: COPD exacerbation Condition: Stable Disposition: HOME, SELF-CARE Additional Instructions: BRONCHITIS WITH BRONCHOSPASM (WHEEZING): You have bronchitis with bronchospasm (wheezing). Sometimes people develop wheezing with a chest cold. This occurs either because of an underlying tendency toward asthma or because the virus itself irritates the bronchial tubes. This irritation causes cough, shortness of breath, and wheezing. Emergency treatment of bronchospasm may include adrenaline shots or bronchodilator aerosol. You may feel lightheaded and have a rapid pulse for an hour or two. Rest and get plenty of fluids. At home, we'll treat you with a bronchodilator inhaler. Corticosteroids may be required for some patients. Until you recover, avoid chemical fumes, dusts, pollens, and exercising in very cold or dry air. If you smoke, stop now! Most cases of bronchitis get better without antibiotics. We prescribe antibiotics when we believe bacteria are damaging your airways, or if there's high risk the bronchitis will worsen into pneumonia. Increase your fluid intake. A cool mist humidifier may make your lungs more comfortable. An expectorant (cough medicine that loosens phlegm) can help. Repeated episodes of bronchitis and bronchospasm may result in lung damage -- for example, chronic bronchitis, recurrent pneumonias, or emphysema. If you develop a fever, increased wheezing, chest pain, or severe shortness of breath, you should contact the doctor immediately. INHALED BRONCHODILATORS: You have received a treatment of and/or prescription for an inhaled bronchodilator -- a medication which stimulates the airways in the lung to dilate. This improves the flow of air in asthma, bronchitis, and emphysema. These medicines have some similarity to adrenaline, and can cause similar side effects: shakiness, racing heart, and a sense of nervousness. These side effects decrease with time. Contact your doctor if these side effects are severe. Do not over-use the medicine. Too-frequent use of the inhaler may make it ineffective. Call your doctor if the inhaler is not controlling your symptoms at the prescribed doses. STEROID MEDICATION: You have been given an injection of or oral medicine of the cortisone/ steroid class. This medication is used to control inflammation or allergy. Carlos t is usually only given for a short period of time, until the acute process subsides. There are usually no side effects from short-term use of cortisone-like medications. Some persons feel an increased sense of well-being and are not sleepy at bedtime. Long-term use of cortisone medications is best avoided, unless required for a severe condition. If your condition does not remit, or relapses after the course of corticosteroid medication, you should consult your physician. USE OF ACETAMINOPHEN (Tylenol): Acetaminophen may be taken for pain relief or fever control. It's much safer than aspirin, offering a wider range of "safe" dosages. It is safe during . Some brand names are Tylenol, Panadol, Datril, Anacin 3, Tempra, and Liquiprin. Acetaminophen can be repeated every four hours. The following are maximum recommended dosages: >89 pounds or adults 650 mg to 900 mg Acetaminophen can be repeated every four hours. Maximum dose not to exceed 4000 mg a day. SMOKING: If you smoke, you should stop smoking. The tar and chemicals in cigarette smoke are harmful. Smoking has been shown to cause: emphysema chronic bronchitis lung cancer mouth and throat cancer stomach and pancreas cancer premature aging defects In addition, smoking increases ear and lung infections in children of smokers. FOLLOW-UP CARE: If you have been referred to a physician for follow-up care, call the physician s office for an appointment as you were instructed or within the next two days. If you experience worsening or a significant change in your symptoms, notify the physician immediately or return to the Emergency Department at any time for re-evaluation. Prescriptions: Albuterol Sulfate [Proair HFA Inhalation Aerosol 8.5 gm MDI] 2 puff IH Q4H PRN # 1 mdi PRN Reason: Prednisone [Deltasone 10 mg Tablet] 10 mg PO ASDIR PRN #21 tablet PRN Reason: Referrals: ERIC SINGH MD [ACTIVE STAFF] - Follow up as needed
[2017-11-25] MEDS ORDERED: ALBUTEROL SULFATE 0.083% NEB 2.5 MG/3 ML AMPUL NEB ONE (03:41)
[2017-11-25 03:45] LABS: VENOUS BLOOD BASE EXCESS 7.4 mmol/L; VENOUS BLOOD HCO3 34.5 mmol/L (20-32); VENOUS BLOOD PCO2 58.5 mmHg (35-63); VENOUS BLOOD PH 7.39 (7.30-7.42)
[2017-11-25 03:48] LABS: HEMATOCRIT 32.4 % (36.0-47.0); HEMOGLOBIN 10.8 g/dL (12.0-15.5); MEAN CORPUSCULAR HEMOGLOBIN 32.1 pg (27.0-33.4); MEAN CORPUSCULAR HGB CONC 33.4 g/dL (32.0-36.0); MEAN CORPUSCULAR VOLUME 96 fl (80-97); PLATELET COUNT 201 10^3/uL (150-450); RED BLOOD COUNT 3.38 10^6/uL (3.72-5.28); RED CELL DISTRIBUTION WIDTH 16.6 % (11.5-14.0); WHITE BLOOD COUNT 12.2 10^3/uL (4.0-10.5)
[2017-11-25 03:58] LABS: ALANINE AMINOTRANSFERASE 36 U/L (9-52); ALBUMIN 3.3 g/dL (3.5-5.0); ALKALINE PHOSPHATASE 62 U/L (38-126); ANION GAP 10 (5-19); ASPARTATE AMINO TRANSFERASE 23 U/L (14-36); BILIRUBIN,DIRECT 0.2 mg/dL (0.0-0.4); BILIRUBIN,TOTAL 0.2 mg/dL (0.2-1.3); BLOOD UREA NITROGEN 29 mg/dL (7-20); CALCIUM 8.6 mg/dL (8.4-10.2); CARBON DIOXIDE 32 mmol/L (22-30); CHLORIDE 97 mmol/L (98-107); GLUCOSE 241 mg/dL (75-110); POTASSIUM 3.5 mmol/L (3.6-5.0); SODIUM 139.2 mmol/L (137-145); TOTAL PROTEIN 5.3 g/dL (6.3-8.2)
[2017-11-25 04:10] LABS: CREATINE KINASE MB 0.93 ng/mL (<4.55); TROPONIN I 0.022 ng/mL
[2017-11-25 04:15] LABS: CREATINE KINASE < 20 U/L (30-135)
[2017-11-25 04:17] LABS: ABSOLUTE LYMPHOCYTES# (MANUAL) 0.2 10^3/uL (0.5-4.7); ABSOLUTE MONOCYTES # (MANUAL) 0.2 10^3/uL (0.1-1.4); ABSOLUTE NEUTROPHILS# (MANUAL) 11.7 10^3/uL (1.7-8.2); ANISOCYTOSIS 1+; BAND NEUTROPHILS % (MANUAL) 5 % (3-5); BASOPHILS % (MANUAL) 0 % (0-2); EOSINOPHILS % (MANUAL) 0 % (0-6); LYMPHOCYTES % (MANUAL) 2 % (13-45); METAMYELOCYTES % (MANUAL) 1 % (0); MONOCYTES % (MANUAL) 2 % (3-13); MYELOCYTES % (MANUAL) 1 % (0); SEGMENTED NEUTROPHILS % (MAN) 89 % (42-78); TOTAL CELLS COUNTED 100
[2017-11-25 04:18] LABS: OVALOCYTES SLIGHT; POLYCHROMASIA SLIGHT; TEAR DROP CELLS SLIGHT
[2017-11-25 04:19] LABS: PLATELET COMMENT ADEQUATE
--- NOTE | 2017-11-25 04:24 | RADIOLOGY REPORT (SQ) ---
EXAM DESCRIPTION: CHEST SINGLE VIEW CLINICAL HISTORY: 72 years Female, SOB/ CP COMPARISON: 4.24.18 NUMBER OF VIEWS/TECHNIQUE: 1/AP FINDINGS: Moderate right hilar scar, obscured right costophrenic angle, atherosclerosis, and intact bony thorax. No pneumothorax. No acute bone defect. IMPRESSION: No significant change.
[2017-11-25] MEDS ORDERED: OXYCODONE-ACETAMINOPHEN 5-325 MG TABLET PO ONE (04:27)
[2017-11-25] MEDS ORDERED: NORMAL SALINE 1000 ML 1,000 ML IV ONE (04:49)
[2017-11-25 05:32] VITALS: BP 117/65
--- NOTE | 2017-11-25 08:37 | EKG REPORT ---
SEVERITY:- ABNORMAL ECG - SINUS TACHYCARDIA ATRIAL PREMATURE COMPLEXES RIGHT BUNDLE BRANCH BLOCK : Confirmed by: Issa Martinez MD 25-Nov-2017 08:36:35
== END 2017-11-25 05:32 | disposition home or self-care (01) ==
LOC: ER 03:11
DX: J44.1 Chronic obstructive pulmonary disease with (acute) exacerbation (principal); R00.0 Tachycardia, unspecified; D72.829 Elevated white blood cell count, unspecified; I45.10 Unspecified right bundle-branch block; I10 Essential (primary) hypertension; I25.10 Atherosclerotic heart disease of native coronary artery without angina pectoris; I25.2 Old myocardial infarction; Z85.118 Personal history of other malignant neoplasm of bronchus and lung; Z85.841 Personal history of malignant neoplasm of brain; Z88.1 Allergy status to other antibiotic agents; Z88.0 Allergy status to penicillin
CPT/HCPCS: 93005; 94640 ×2; 99285; 96361; 96374; 36415; 82553; 82550; 85025; 80053; 84484; 82803; 71045; 93010; J2930; A9270 ×2; J7030; J7620

== ENCOUNTER 2017-11-28 04:00 | Inpatient (IN) | payer MEDICARE, OTHER ==
[2017-11-28] MEDS ORDERED: METHYLPREDNISOLONE INJ 125 MG/2 ML SDV ONE (04:19)
[2017-11-28] MEDS ORDERED: MAGNESIUM SULFATE/D5W 2 GM/200 ML RTUPB IV ONE (04:19)
[2017-11-28] MEDS ORDERED: METHYLPREDNISOLONE INJ 125 MG/2 ML SDV IV ONE (04:24)
[2017-11-28] MEDS: MAGNESIUM SULFATE/D5W 1 GM/100 ML RTUPB IV SCH ×3 (04:26→04:56)
[2017-11-28] MEDS ORDERED: IPRATROPIUM/ALBUTEROL 0.5-2.5 MG/3 ML AMPUL NEB ONE (04:39)
--- NOTE | 2017-11-28 04:39 | ER Document Report ---
ED General - General TRAVEL OUTSIDE OF THE [place] IN LAST 30 DAYS: No <SJ TRENT - Last Filed: 11/28/17 07:34> <WILIAN ROSA - Last Filed: 11/28/17 14:32> - General Chief Complaint: Abdominal Pain Stated Complaint: ABDOMINAL PAIN Time Seen by Provider: 11/28/17 04:06 Notes: Patient is a 72-year-old female comes emergency department for 2 complaints. First complaint is pain in her abdomen, worse on the left side, she complains of vomiting over the past 2 days and not having a bowel movement. She is still passing gas. She denies fever. She also reports worsening shortness of breath this evening, she comes by EMS, EMS found that she was wheezing significantly, give her albuterol in route. She has a history of COPD, CHF, type 2 diabetes, hypertension, lung cancer with mets to the brain. 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 (SJ TRENT) - Related Data Allergies/Adverse Reactions: azithromycin Allergy (Verified 11/13/17 06:50) amoxicillin [Amoxicillin] Adverse Reaction (Verified 11/13/17 06:50) visual hallucinations erythromycin base [Erythromycin Base] Adverse Reaction (Verified 11/13/17 06:50) visual hallucinations Potassium Clavulanate * [From Augmentin] Adverse Reaction (Verified 11/13/17 06: 50) visual hallucinations Past Medical History - General Information source: Patient - Social History Smoking Status: Former Smoker Frequency of alcohol use: None Drug Abuse: None Lives with: Alone Family History: COPD, Malignancy - Lung cancer - Past Medical History Cardiac Medical History: Reports: Hx Congestive Heart Failure, Hx Coronary Artery Disease, Hx Heart Attack, Hx Hypertension Denies: Hx DVT, Hx Hypercholesterolemia, Hx Pulmonary Embolism Pulmonary Medical History: Reports: Hx Asthma, Hx Bronchitis, Hx COPD - 2 L nasal home oxygen, Hx Pneumonia, Hx Respiratory Failure - Chronic respiratory failure Denies: Hx Sleep Apnea, Hx Tuberculosis Neurological Medical History: Denies: Hx Seizures Endocrine Medical History: Reports: Hx Diabetes Mellitus Type 2, Hx Hypothyroidism. 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 Denies: Hx Cirrhosis, Hx Hepatitis, Hx Ulcer Musculoskeltal Medical History: Reports Hx Arthritis, Denies Hx Multiple Sclerosis, Reports Hx Musculoskeletal Deformity, Reports Hx Musculoskeletal Trauma Psychiatric Medical History: Reports: Hx Dementia, Hx Depression Denies: Hx Bipolar Disorder, Hx Schizophrenia Infectious Medical History: Reports: Hx C-Diff. Denies: Hx Hepatitis Past Surgical History: Reports: Hx Cholecystectomy, Hx Orthopedic Surgery - Foot surgery, Other - cataract bilateral - Immunizations Hx Diphtheria, Pertussis, Tetanus Vaccination: Yes Hx Pneumococcal Vaccination: 08/30/12 <SJ TRENT - Last Filed: 11/28/17 07:34> Review of Systems - Review of Systems Constitutional: No symptoms reported EENT: No symptoms reported Cardiovascular: No symptoms reported Respiratory: See HPI Gastrointestinal: See HPI Genitourinary: No symptoms reported Female Genitourinary: No symptoms reported Musculoskeletal: No symptoms reported Skin: No symptoms reported Hematologic/Lymphatic: No symptoms reported Neurological/Psychological: No symptoms reported <SJ TRENT Last Filed: 11/28/17 07:34> Physical Exam - General General appearance: Alert In distress: None - Respiratory Respiratory status: No respiratory distress, Tachypnea Breath sounds: Decreased air movement, Wheezing - Cardiovascular Rhythm: Regular, Extrasystoles, Tachycardia Heart sounds: Normal auscultation, S1 appreciated, S2 appreciated - Abdominal Tenderness: Tender - Tender in the mid to left lower abdomen, mild generalized tenderness otherwise - Back Back: Normal, Nontender. No: Tender - Extremities General upper extremity: Normal inspection, Nontender, Normal strength, Normal temperature General lower extremity: Normal inspection, Nontender, Normal strength, Normal temperature - Neurological Neuro grossly intact: Yes Cognition: Normal Orientation: AAOx4 Raquel Coma Scale Eye Opening: Spontaneous Raquel Coma Scale Verbal: Oriented Celina Coma Scale Motor: Obeys Commands Celina Coma Scale Total: 15 Speech: Normal Motor strength normal: LUE, RUE, LLE, RLE Sensory: Normal - Skin Skin Temperature: Warm Skin Moisture: Dry Skin Color: Normal <SJ TRENT Last Filed: 11/28/17 07:34> - Vital signs Vitals: Resp Pulse Ox 21 H 97 11/28/17 04:05 11/28/17 04:05 Course - Laboratory Result Diagrams: 11/28/17 04:35 11/28/17 04:35 <SJ TRENT - Last Filed: 11/28/17 07:34> - Laboratory Result Diagrams: 11/28/17 04:35 11/28/17 04:35 <WILIAN ROSA - Last Filed: 11/28/17 14:32> - Re-evaluation Re-evalutation: On initial presentation patient with some tachypnea and wheezing with decreased breath sounds, these did improve after treatment although patient reportedly had a chronic wheeze. She has not hypoxic, no signs of distress. Venous blood gas unremarkable. Patient is tachycardic, she does have mid to left lower abdominal tenderness on exam, moving her bowels poorly, questionable partial obstruction, infection, etc. Will perform CAT scan to evaluate. CBC shows mild leukocytosis, otherwise unremarkable, chemistry generally unremarkable, urinalysis unremarkable. On reevaluation patient initially smiling and well-appearing, did well with contrast, reevaluated again and now she is complaining of mild nausea. Ordered Zofran. Introduced to EMILY Singleton, pending CAT scan results. (SJ TRENT) - Vital Signs Vital signs: Temp Pulse Resp BP Pulse Ox 98.3 F 19 138/65 H 94 11/28/17 04:12 11/28/17 13:00 11/28/17 09:01 11/28/17 13:00 - Laboratory Laboratory results interpreted by me: 11/28/17 11/28/17 11/28/17 04:35 04:35 05:40 WBC 12.3 H RBC 3.39 L Hgb 10.9 L Hct 32.8 L RDW 17.1 H Seg Neuts % (Manual) 90 H Lymphocytes % (Manual) 3 L Myelocytes % 1 H Abs Neuts (Manual) 11.2 H Abs Lymphs (Manual) 0.4 L Chloride 97 L BUN 29 H Glucose 302 H Lactic Acid Creatine Kinase 21 L Total Protein 5.6 L Urine Glucose (UA) >=500 H 11/28/17 12:57 WBC RBC Hgb Hct RDW Seg Neuts % (Manual) Lymphocytes % (Manual) Myelocytes % Abs Neuts (Manual) Abs Lymphs (Manual) Chloride BUN Glucose Lactic Acid 2.8 H Creatine Kinase Total Protein Urine Glucose (UA) Discharge <SJ TRENT - Last Filed: 11/28/17 07:34> - Discharge Admitting Provider: Hospitalist - Dr. Juan Jose Moise Unit Admitted: Telemetry <WILIAN ROSA - Last Filed: 11/28/17 14:32> - Discharge Clinical Impression: Tachypnea, Lung cancer metastatic to brain Diastolic heart failure Qualifiers: Heart failure chronicity: acute Qualified Code(s): I50.31 - Acute diastolic ( congestive) heart failure COPD (chronic obstructive pulmonary disease) Qualifiers: COPD type: COPD with acute exacerbation Qualified Code(s): J44.1 - Chronic obstructive pulmonary disease with (acute) exacerbation Condition: Good Disposition: ADMITTED INPATIENT
[2017-11-28 05:02] LABS: VENOUS BLOOD BASE EXCESS 1.6 mmol/L; VENOUS BLOOD HCO3 26.9 mmol/L (20-32); VENOUS BLOOD PCO2 45.8 mmHg (35-63); VENOUS BLOOD PH 7.39 (7.30-7.42)
[2017-11-28 05:16] LABS: ALANINE AMINOTRANSFERASE 43 U/L (9-52); ALBUMIN 3.5 g/dL (3.5-5.0); ALKALINE PHOSPHATASE 109 U/L (38-126); ANION GAP 14 (5-19); ASPARTATE AMINO TRANSFERASE 22 U/L (14-36); BILIRUBIN,DIRECT 0.2 mg/dL (0.0-0.4); BILIRUBIN,TOTAL 0.2 mg/dL (0.2-1.3); BLOOD UREA NITROGEN 29 mg/dL (7-20); CALCIUM 9.2 mg/dL (8.4-10.2); CARBON DIOXIDE 29 mmol/L (22-30); CHLORIDE 97 mmol/L (98-107); CREATINE KINASE 21 U/L (30-135); GLUCOSE 302 mg/dL (75-110); LIPASE 56.1 U/L (23-300); POTASSIUM 3.6 mmol/L (3.6-5.0); SODIUM 139.8 mmol/L (137-145); TOTAL PROTEIN 5.6 g/dL (6.3-8.2)
[2017-11-28 05:20] LABS: HEMATOCRIT 32.8 % (36.0-47.0); HEMOGLOBIN 10.9 g/dL (12.0-15.5); MEAN CORPUSCULAR HEMOGLOBIN 32.2 pg (27.0-33.4); MEAN CORPUSCULAR HGB CONC 33.4 g/dL (32.0-36.0); MEAN CORPUSCULAR VOLUME 97 fl (80-97); PLATELET COUNT 214 10^3/uL (150-450); RED BLOOD COUNT 3.39 10^6/uL (3.72-5.28); RED CELL DISTRIBUTION WIDTH 17.1 % (11.5-14.0); WHITE BLOOD COUNT 12.3 10^3/uL (4.0-10.5)
[2017-11-28 05:28] LABS: CREATINE KINASE MB 2.07 ng/mL (<4.55); TROPONIN I 0.022 ng/mL
--- NOTE | 2017-11-28 05:33 | RADIOLOGY REPORT (SQ) ---
EXAM DESCRIPTION: CHEST SINGLE VIEW CLINICAL HISTORY: shortness of breath COMPARISON: 11/25/2017 FINDINGS: Single frontal view of the chest. Cardia mediastinal silhouette is stable. No consolidation, pneumothorax, or pleural effusion. Leads overlie the chest. No acute osseous defects. Upper abdominal soft tissues are unremarkable. IMPRESSION: 1. No significant interval change.
[2017-11-28 05:40] LABS: ABSOLUTE LYMPHOCYTES# (MANUAL) 0.4 10^3/uL (0.5-4.7); ABSOLUTE MONOCYTES # (MANUAL) 0.6 10^3/uL (0.1-1.4); ABSOLUTE NEUTROPHILS# (MANUAL) 11.2 10^3/uL (1.7-8.2); BASOPHILS % (MANUAL) 0 % (0-2); EOSINOPHILS % (MANUAL) 1 % (0-6); LYMPHOCYTES % (MANUAL) 3 % (13-45); MONOCYTES % (MANUAL) 5 % (3-13); MYELOCYTES % (MANUAL) 1 % (0); SEGMENTED NEUTROPHILS % (MAN) 90 % (42-78); TOTAL CELLS COUNTED 100
[2017-11-28 05:41] LABS: ANISOCYTOSIS 1+; OVALOCYTES SLIGHT; PLATELET COMMENT ADEQUATE; PLATELET LARGE PRESENT; POIKILOCYTOSIS 1+; SCHISTOCYTES SLIGHT; TEAR DROP CELLS 1+; TOXIC GRANULATION 1+
[2017-11-28 06:25] LABS: APPEARANCE,URINE CLEAR; BILIRUBIN,URINE NEGATIVE (NEGATIVE); COLOR,URINE YELLOW; GLUCOSE, URINE >=500 mg/dL (NEGATIVE); KETONES,URINE NEGATIVE (NEGATIVE); LEUKOCYTE ESTERASE,URINE NEGATIVE (NEGATIVE); NITRITE,URINE NEGATIVE (NEGATIVE); PROTEIN,URINE NEGATIVE (NEGATIVE); URINE SPECIFIC GRAVITY 1.012; UROBILINOGEN,URINE NEGATIVE mg/dL (<2.0)
[2017-11-28] MEDS ORDERED: ONDANSETRON HCL INJ/PF 4 MG/2 ML SDV IV ONE (07:13)
--- NOTE | 2017-11-28 11:18 | RADIOLOGY REPORT (SQ) ---
EXAM DESCRIPTION: CT ABD/PELVIS WITH IV ORAL; CTA CHEST COMPLETED DATE/TIME: 11/28/2017 10:37 am REASON FOR STUDY: abd pain, vomiting; tachycardia with sob COMPARISON: CT angio chest 11/21/2017, 10/23/2017, 05/04/2017 CT abdomen pelvis 10/23/2017 CONTRAST TYPE AND DOSE: contrast/concentration: Isovue 370.00 mg/ml; Total Contrast Delivered: 74.0 ml; Total Saline Delivered: 90.0 ml RENAL FUNCTION: Creatinine 0.9 TECHNIQUE: CT angio of the chest performed using helical scanning technique with dynamic intravenous contrast injection. Images reviewed with lung, soft tissue and bone windows. Reconstructed coronal and sagittal MPR images reviewed. Maximum intensity projected images were reviewed of the pulmonary arteries and thoracic aorta. All images stored on PACS. CT scan of the abdomen and pelvis performed with intravenous and with oral contrastusing helical scan sherwin technique with dynamic intravenous contrast injection. Images reviewed with lung, soft tissue a nd bone windows. Reconstructed coronal and sagittal MPR images reviewed. Delayed images for evaluat ion of the urinary system also acquired and evaluated. All images stored on PACS. All CT scanners at this facility use dose modulation, iterative reconstruction, and/or weight based d osing when appropriate to reduce radiation dose to as low as reasonably achievable (ALARA). [facility]: Dose Right [facility]: CareDose [facility]: Dose Right [facility]: Teradose 4D [facility]: Smart [employer] RADIATION DOSE: CT Rad equipment meets quality standard of care and radiation dose reduction techniq ues were employed. CTDIvol: 16.5 - 29.1 mGy. DLP: 3607 mGy-cm. . LIMITATIONS: None. FINDINGS: CHEST: LUNGS AND PLEURA: Bandlike volume loss and bronchiectasis is present in the right perihilar region re lated to remote prior radiation therapy. No acute infiltrates. No pleural effusion. No pneumothorax. No worrisome pulmonary nodules. HILAR AND MEDIASTINAL STRUCTURES: No identified masses or abnormal nodes. HEART AND VASCULAR STRUCTURES: No aneurysm or dissection. No central pulmonary emboli. No pericardi al effusion. No acute pulmonary emboli. HARDWARE: None. THYROID AND OTHER SOFT TISSUES: No masses. No adenopathy. BONES: No significant finding. OTHER: No other significant finding. ABDOMEN AND PELVIS: LIVER: Normal size. No masses. No dilated ducts. Air in left-sided intrahepatic biliary ducts relat ed to prior sphincterotomy. SPLEEN: Normal size. No focal lesions. PANCREAS: No masses. No significant calcifications. No adjacent inflammation or peripancreatic fluid collections. Pancreatic duct not dilated. GALLBLADDER: Surgically absent ADRENAL GLANDS: No significant masses or asymmetry. RIGHT KIDNEY AND URETER: No solid masses. 2 cm right midpole renal cortical cyst. No significant ca lcification. No hydronephrosis or hydroureter. LEFT KIDNEY AND URETER: No solid masses. No significant calcification. No hydronephrosis or hydrouret er. AORTA AND VESSELS: No aneurysm. No dissection. Renal arteries, SMA, celiac without stenosis. RETROPERITONEUM: No retroperitoneal adenopathy, hemorrhage or masses. BOWEL AND PERITONEAL CAVITY: No masses or inflammatory changes. No free fluid or peritoneal masses. No CT evidence of bowel obstruction. Moderate stool throughout the colon. APPENDIX: Normal. ABDOMINAL WALL: No masses. No hernias. PELVIS: No mass or free fluid. Normal bladder. BONES: No significant or acute findings. OTHER: No other significant finding. IMPRESSION: No CT angio evidence of thoracic aortic dissection or acute pulmonary emboli No acute changes in the abdomen or pelvis TECHNICAL DOCUMENTATION: JOB ID: [id number] Quality ID # [id number]: Final reports with documentation of one or more dose reduction techniques (e.g., Au tomated exposure control, adjustment of the mA and/or kV according to patient size, use of iterative reconstruction technique) 2010 [employer]- All Rights Reserved Reading location - IP/workstation name: [email or web address]
--- NOTE | 2017-11-28 11:18 | RADIOLOGY REPORT (SQ) ---
EXAM DESCRIPTION: CT ABD/PELVIS WITH IV ORAL; CTA CHEST COMPLETED DATE/TIME: 11/28/2017 10:37 am REASON FOR STUDY: abd pain, vomiting; tachycardia with sob COMPARISON: CT angio chest 11/21/2017, 10/23/2017, 05/04/2017 CT abdomen pelvis 10/23/2017 CONTRAST TYPE AND DOSE: contrast/concentration: Isovue 370.00 mg/ml; Total Contrast Delivered: 74.0 ml; Total Saline Delivered: 90.0 ml RENAL FUNCTION: Creatinine 0.9 TECHNIQUE: CT angio of the chest performed using helical scanning technique with dynamic intravenous contrast injection. Images reviewed with lung, soft tissue and bone windows. Reconstructed coronal and sagittal MPR images reviewed. Maximum intensity projected images were reviewed of the pulmonary arteries and thoracic aorta. All images stored on PACS. CT scan of the abdomen and pelvis performed with intravenous and with oral contrastusing helical scan sherwin technique with dynamic intravenous contrast injection. Images reviewed with lung, soft tissue a nd bone windows. Reconstructed coronal and sagittal MPR images reviewed. Delayed images for evaluat ion of the urinary system also acquired and evaluated. All images stored on PACS. All CT scanners at this facility use dose modulation, iterative reconstruction, and/or weight based d osing when appropriate to reduce radiation dose to as low as reasonably achievable (ALARA). [facility]: Dose Right [facility]: CareDose [facility]: Dose Right [facility]: Teradose 4D [facility]: Smart [place] RADIATION DOSE: CT Rad equipment meets quality standard of care and radiation dose reduction techniq ues were employed. CTDIvol: 16.5 - 29.1 mGy. DLP: 3607 mGy-cm. . LIMITATIONS: None. FINDINGS: CHEST: LUNGS AND PLEURA: Bandlike volume loss and bronchiectasis is present in the right perihilar region re lated to remote prior radiation therapy. No acute infiltrates. No pleural effusion. No pneumothorax. No worrisome pulmonary nodules. HILAR AND MEDIASTINAL STRUCTURES: No identified masses or abnormal nodes. HEART AND VASCULAR STRUCTURES: No aneurysm or dissection. No central pulmonary emboli. No pericardi al effusion. No acute pulmonary emboli. HARDWARE: None. THYROID AND OTHER SOFT TISSUES: No masses. No adenopathy. BONES: No significant finding. OTHER: No other significant finding. ABDOMEN AND PELVIS: LIVER: Normal size. No masses. No dilated ducts. Air in left-sided intrahepatic biliary ducts relat ed to prior sphincterotomy. SPLEEN: Normal size. No focal lesions. PANCREAS: No masses. No significant calcifications. No adjacent inflammation or peripancreatic fluid collections. Pancreatic duct not dilated. GALLBLADDER: Surgically absent ADRENAL GLANDS: No significant masses or asymmetry. RIGHT KIDNEY AND URETER: No solid masses. 2 cm right midpole renal cortical cyst. No significant ca lcification. No hydronephrosis or hydroureter. LEFT KIDNEY AND URETER: No solid masses. No significant calcification. No hydronephrosis or hydrouret er. AORTA AND VESSELS: No aneurysm. No dissection. Renal arteries, SMA, celiac without stenosis. RETROPERITONEUM: No retroperitoneal adenopathy, hemorrhage or masses. BOWEL AND PERITONEAL CAVITY: No masses or inflammatory changes. No free fluid or peritoneal masses. No CT evidence of bowel obstruction. Moderate stool throughout the colon. APPENDIX: Normal. ABDOMINAL WALL: No masses. No hernias. PELVIS: No mass or free fluid. Normal bladder. BONES: No significant or acute findings. OTHER: No other significant finding. IMPRESSION: No CT angio evidence of thoracic aortic dissection or acute pulmonary emboli No acute changes in the abdomen or pelvis TECHNICAL DOCUMENTATION: JOB ID: [id number] Quality ID # [id number]: Final reports with documentation of one or more dose reduction techniques (e.g., Au tomated exposure control, adjustment of the mA and/or kV according to patient size, use of iterative reconstruction technique) 2010 [employer]- All Rights Reserved Reading location - IP/workstation name: [email or web address]
[2017-11-28] MEDS ORDERED: FUROSEMIDE INJ/PF 40 MG/4 ML SDV IV ONE (14:30)
--- NOTE | 2017-11-28 14:31 | EKG REPORT ---
SEVERITY:- ABNORMAL ECG - SINUS TACHYCARDIA PAIRED VENTRICULAR PREMATURE COMPLEXES RIGHT BUNDLE BRANCH BLOCK : Confirmed by: Mercedes Solomon 28-Nov-2017 14:30:40
[2017-11-28] MEDS ORDERED: ACETAMINOPHEN 325 MG TABLET PO PRN (14:33)
[2017-11-28] MEDS ORDERED: DEXTROSE 40% GEL 15 GM TUBE PO PRN ×2 (14:52)
[2017-11-28] MEDS ORDERED: DEXTROSE 50%-WATER 25 GM/50 ML DISP.SYRIN IV PRN ×2 (14:52)
[2017-11-28] MEDS ORDERED: GLUCAGON,HUMAN RECOMB 1 MG INJ IM PRN (14:52)
[2017-11-28] MEDS ORDERED: TRAMADOL HCL 50 MG TABLET PO PRN (14:52)
[2017-11-28] MEDS ORDERED: ONDANSETRON HCL INJ/PF 4 MG/2 ML SDV IV PRN (14:52)
[2017-11-28] MEDS ORDERED: INSULIN LISPRO 100 UNIT/ML 3 ML VIAL SUBCUT PRN (14:52)
[2017-11-28] MEDS ORDERED: (PENDING PHARMACY ID) (Levalbuterol Hcl [Levalbuterol Concentrate] 1.25 MG) NEB PRN (14:52)
--- NOTE | 2017-11-28 15:34 | PDOC H&P ---
History of Present Illness Admission Date/PCP: 11/28/17 15:01 Patient complains of: Abdominal pain History of Present Illness: TRENTON MCCOY is a 72 year old female known to me from a recent admission. She was sent into the ER with a complaint of abdominal pain, but when I saw her she did not mention abdominal pain and did not recall having had it recently. She thinks her granddaughter sent her in because the granddaughter was tired of listening the patient complained about her back pain. She denied any particular complaints at this point. Just finished eating a full lunch. She denied nausea, chest pain, but stated that she is always short of breath. States there is been no change in her cough. Past Medical History Cardiac Medical History: Reports: Congestive Heart Failure, Coronary Artery Disease, Myocardial Infarction, Hypertension Denies: DVT, Hyperlipidema, Pulmonary Embolism Pulmonary Medical History: Reports: Asthma, Bronchitis, Chronic Obstructive Pulmonary Disease (COPD) - 2 L nasal home oxygen, Pneumonia, Respiratory Failure - Chronic respiratory failure Denies: Sleep Apnea, Tuberculosis Neurological Medical History: Denies: Seizures Endocrine Medical History: Reports: Diabetes Mellitus Type 2, Hypothyroidism Denies: Diabetes Mellitus Type 1, Hyperthyroidism Renal/ Medical History: Denies: End Stage Renal Disease Malignancy Medical History: Reports: Brain Cancer - Lung cancer with brain metastases, 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 GI Medical History: Reports: Gastroesophageal Reflux Disease Denies: Cirrhosis, Hepatitis Musculoskeltal Medical History: Reports: Arthritis Psychiatric Medical History: Reports: Dementia, Depression Denies: Bipolar Disorder Hematology: Reports: Anemia, Bleeding Tendencies Infectious Medical History: Reports: Clostridium Difficile Past Surgical History Past Surgical History: Reports: Cholecystectomy, Orthopedic Surgery - Foot surgery, Other - cataract bilateral Social History Lives with: Alone Smoking Status: Former Smoker Frequency of Alcohol Use: None Hx Recreational Drug Use: No Drugs: None Hx Prescription Drug Abuse: No - Advance Directive Resuscitation Status: Full Code Family History Family History: COPD, Malignancy - Lung cancer Parental Family History Reviewed: Yes Children Family History Reviewed: No Sibling(s) Family History Reviewed.: No Medication/Allergy Home Medications: Furosemide [Lasix 20 mg Tablet] 20 mg PO BID 11/21/17 Glimepiride [Amaryl 1 mg Tablet] 1 mg PO DAILY 11/21/17 Levothyroxine Sodium [Synthroid 0.088 mg Tablet] 0.088 mg PO DAILY 11/21/17 Lisinopril [Prinivil 5 mg Tablet] 5 mg PO DAILY 11/21/17 Metformin HCl [Metformin HCl ER] 500 mg PO WSUPPER 11/21/17 Oxycodone HCl/Acetaminophen [Percocet 5-325 mg Tablet] 1 tab PO Q12 11/21/17 Pantoprazole Sodium [Protonix] 40 mg PO DAILY 11/21/17 Tramadol HCl [Ultram 50 mg Tablet] 50 mg PO DAILYP PRN 11/21/17 Ascorbic Acid [Vitamin C 500 mg Tablet] 500 mg PO BIDPCBS #60 tablet 11/24/17 Diaper,Brief,Adult, Disposable [Maxicare] 1 each MC Q6 #120 each 11/24/17 Docusate Sodium [Colace 100 mg Capsule] 100 mg PO DAILY capsule 11/24/17 Doxycycline Hyclate [Vibramycin 100 mg Tablet] 100 mg PO Q12 #10 tablet Ferrous Sulfate [Albafort] 325 mg PO BIDPCBS #60 tablet 11/24/17 Ipratropium/Albuterol Sulfate [Duoneb 3 ml Ampul] 3 ml [facility] [id number] #120 vial.[facility] 11/24/17 Lactose-Reduced Food [Ensure Immune Health] 237 ml PO BID #60 bot 11/24/17 Levalbuterol HCl [Levalbuterol Concentrate] 1.25 mg NEB Q4HP PRN #90 vial.neb Prednisone [Deltasone 20 mg Tablet] 20 mg PO ASDIR #30 tablet 11/24/17 Sulfamethoxazole/Trimethoprim [Bactrim Ds Tablet] 1 each PO BID #8 tablet Tiotropium Goodman [Spiriva Handihaler 5 Cap/Kit (18 Mcg/Cap)] 1 puff IH DAILY # 30 dose 11/24/17 Albuterol Sulfate [Proair HFA Inhalation Aerosol 8.5 gm MDI] 2 puff IH Q4H PRN # 1 mdi 11/25/17 Prednisone [Deltasone 10 mg Tablet] 10 mg PO ASDIR PRN #21 tablet 11/25/17 Allergies/Adverse Reactions: azithromycin Allergy (Verified 11/13/17 06:50) amoxicillin [Amoxicillin] Adverse Reaction (Verified 11/13/17 06:50) visual hallucinations erythromycin base [Erythromycin Base] Adverse Reaction (Verified 11/13/17 06:50) visual hallucinations Potassium Clavulanate * [From Augmentin] Adverse Reaction (Verified 11/13/17 06: 50) visual hallucinations Review of Systems All systems: reviewed and no additional remarkable complaints except as stated Physical Exam Vital Signs: Temp Pulse Resp BP Pulse Ox 98.3 F 19 138/65 H 94 11/28/17 04:12 11/28/17 13:00 11/28/17 09:01 11/28/17 13:00 General appearance: PRESENT: no acute distress, obese Respiratory exam: PRESENT: rhonchi - Upper airway Cardiovascular exam: PRESENT: tachycardia GI/Abdominal exam: PRESENT: soft Extremities exam: PRESENT: +2 edema - Below the knees Neurological exam: PRESENT: alert, oriented to person. ABSENT: oriented to place, oriented to time, oriented to situation Psychiatric exam: PRESENT: appropriate affect Skin exam: PRESENT: warm Results Impressions: Abdomen/Pelvis CT 11/28/17 00:00 IMPRESSION: No CT angio evidence of thoracic aortic dissection or acute pulmonary emboli No acute changes in the abdomen or pelvis Chest X-Ray 11/28/17 04:23 IMPRESSION: 1. No significant interval change. Chest/Abdomen CTA 11/28/17 07:23 IMPRESSION: No CT angio evidence of thoracic aortic dissection or acute pulmonary emboli No acute changes in the abdomen or pelvis Assessment & Plan - Diagnosis (1) Acute on chronic diastolic (congestive) heart failure Is this a current diagnosis for this admission?: Yes Plan: Probably from her tachycardia. I will put her on Coreg instead of lisinopril to see if we can better regulate her heart rate. She has no left ventricular systolic dysfunction, so she does not need to be on an STACY inhibitor. Diuresis with IV Lasix as tolerated. Monitor blood pressure and renal function closely. (2) Chronic back pain Qualifiers: Back pain location: low back pain Back pain laterality: unspecified Is this a current diagnosis for this admission?: Yes (3) Cor pulmonale (chronic) Is this a current diagnosis for this admission?: Yes (4) Dementia Qualifiers: Dementia type: unspecified type Dementia behavioral disturbance: without behavioral disturbance Qualified Code(s): F03.90 - Unspecified dementia without behavioral disturbance Is this a current diagnosis for this admission?: Yes Plan: She has a history of metastatic disease to the brain. It is unclear how much of her current cognitive dysfunction is related to that, versus Alzheimer's dementia. (5) History of lung cancer Is this a current diagnosis for this admission?: No (6) Obesity with serious comorbidity Qualifiers: Obesity type: due to excess calories Obesity classification: adult class 1 (BMI 30 ? 34.9) Body mass index: BMI 31.0-31.9 Qualified Code(s): E66.09 - Other obesity due to excess calories; Z68.31 - Body mass index (BMI) 31.0-31.9, adult; Z68.31 - Body mass index (BMI) 31.0-31.9, adult Is this a current diagnosis for this admission?: Yes Plan: We will put her on a diet consistent with sensible weight loss (7) Hypothyroid Qualifiers: Hypothyroidism type: unspecified Qualified Code(s): E03.9 - Hypothyroidism , unspecified Is this a current diagnosis for this admission?: Yes Plan: Continue her home medications (8) COPD (chronic obstructive pulmonary disease) Qualifiers: COPD type: emphysema Is this a current diagnosis for this admission?: Yes Plan: I do not think this is an exacerbation. Continue home medications
[2017-11-28] MEDS: METFORMIN HCL 500 MG TABLET PO SCH (16:35)
[2017-11-28] MEDS ORDERED: (PENDING PHARMACY ID) (Metformin Hcl [Metformin Hcl Er] 500 MG) PO SCH (17:00)
[2017-11-28] MEDS: ASCORBIC ACID 500 MG TABLET PO SCH (17:03)
[2017-11-28] MEDS: FERROUS SULFATE 325 MG TABLET PO SCH (17:03)
[2017-11-28] MEDS ORDERED: LACTOSE REDUCED FOOD PO SCH (18:00)
[2017-11-28] MEDS: OXYCODONE-ACETAMINOPHEN 5-325 MG TABLET PO SCH (21:36)
[2017-11-28] MEDS: FUROSEMIDE INJ/PF 40 MG/4 ML SDV IV SCH (21:36)
[2017-11-28] MEDS: CARVEDILOL 6.25 MG TABLET PO SCH (21:37)
--- NOTE | 2017-11-28 22:37 | EKG REPORT ---
SEVERITY:- ABNORMAL ECG - SINUS TACHYCARDIA ATRIAL PREMATURE COMPLEX RIGHT BUNDLE BRANCH BLOCK : Confirmed by: Mercedes Solomon 28-Nov-2017 22:36:07
[2017-11-29] MEDS ORDERED: VANCOMYCIN HCL INJ 500 MG VIAL PO ONE (05:15)
[2017-11-29] MEDS ORDERED: VANCOMYCIN HCL INJ 500 MG VIAL ONE (05:39)
[2017-11-29] MEDS: LANSOPRAZOLE 30 MG TAB.RAP.DR PO SCH (05:49)
[2017-11-29 06:46] LABS: ALBUMIN 2.9 g/dL (3.5-5.0); BLOOD UREA NITROGEN 32 mg/dL (7-20); CALCIUM 8.7 mg/dL (8.4-10.2); CHLORIDE 102 mmol/L (98-107); GLUCOSE 80 mg/dL (75-110); PHOSPHORUS 3.1 mg/dL (2.5-4.5); POTASSIUM 4.1 mmol/L (3.6-5.0)
[2017-11-29 06:59] LABS: ANION GAP 6 (5-19); CARBON DIOXIDE 36 mmol/L (22-30); SODIUM 144.2 mmol/L (137-145)
[2017-11-29] MEDS: CARVEDILOL 6.25 MG TABLET PO SCH ×2 (10:37→21:03)
[2017-11-29] MEDS: OXYCODONE-ACETAMINOPHEN 5-325 MG TABLET PO SCH ×2 (10:38→21:03)
[2017-11-29] MEDS: FUROSEMIDE INJ/PF 40 MG/4 ML SDV IV SCH (10:38)
[2017-11-29] MEDS: ASCORBIC ACID 500 MG TABLET PO SCH ×2 (10:38→17:29)
[2017-11-29] MEDS: LEVOTHYROXINE SODIUM 0.088 MG TABLET PO SCH (10:39)
[2017-11-29] MEDS: GLIMEPIRIDE 1 MG TABLET PO SCH (10:39)
[2017-11-29] MEDS: FERROUS SULFATE 325 MG TABLET PO SCH ×2 (10:39→17:29)
[2017-11-29] MEDS: POLYETHYLENE GLYCOL 3350 POWDER 17 GM/1 PACKET PO SCH (10:40)
[2017-11-29] MEDS: METFORMIN HCL 500 MG TABLET PO SCH ×2 (10:40→17:27)
[2017-11-29] MEDS: TIOTROPIUM BROMIDE DPI 5 CAP/KIT (18 MCG/CAP) IH SCH (10:42)
[2017-11-29] MEDS: ENOXAPARIN SODIUM INJ 40 MG/0.4 ML DISP.SYRIN SUBCUT SCH (10:45)
[2017-11-29] MEDS: VANCOMYCIN HCL INJ 500 MG VIAL PO SCH ×3 (12:30→23:10)
--- NOTE | 2017-11-29 18:04 | PDOC PROGRESS REPORT ---
Subjective Progress Note for:: 11/29/17 Subjective:: Did not feel like talking to me today. Asked if she can go home when I said no , closed her eyes and did not talk to me anymore. Reason For Visit: HEART FAILURE Physical Exam Vital Signs: Temp Pulse Resp BP Pulse Ox 97.4 F 103 H 20 103/69 99 11/29/17 17:38 11/29/17 17:38 11/29/17 17:38 11/29/17 17:38 11/29/17 17:38 Intake & Output 11/28/17 11/29/17 11/30/17 06:59 06:59 06:59 Intake Total 370 590 Balance 370 590 Weight 198 lb 13.711 oz General appearance: PRESENT: no acute distress, obese Respiratory exam: PRESENT: clear to auscultation jeff - I could not listen to her back as she declined a rollover Cardiovascular exam: PRESENT: RRR GI/Abdominal exam: PRESENT: soft. ABSENT: tenderness Musculoskeletal exam: PRESENT: normal inspection Neurological exam: PRESENT: other - As noted, she knew who I was. No focal deficits were immediately obvious. Skin exam: PRESENT: warm Results Laboratory Results: 11/29/17 05:57 11/29/17 05:57 Sodium 144.2 Potassium 4.1 Chloride 102 Carbon Dioxide 36 H Anion Gap 6 BUN 32 H Creatinine 0.99 Est GFR ( Amer) > 60 Est GFR (Non-Af Amer) 55 L Glucose 80 Calcium 8.7 Phosphorus 3.1 Magnesium 2.2 Albumin 2.9 L 11/29/17 05:57 NT-Pro-B Natriuret Pep 662 Impressions: Abdomen/Pelvis CT 11/28/17 00:00 IMPRESSION: No CT angio evidence of thoracic aortic dissection or acute pulmonary emboli No acute changes in the abdomen or pelvis Chest X-Ray 11/28/17 04:23 IMPRESSION: 1. No significant interval change. Chest/Abdomen CTA 11/28/17 07:23 IMPRESSION: No CT angio evidence of thoracic aortic dissection or acute pulmonary emboli No acute changes in the abdomen or pelvis Assessment & Plan - Diagnosis (1) C. difficile colitis Is this a current diagnosis for this admission?: Yes Plan: Recurrent. Continue oral vancomycin. (2) Acute on chronic diastolic (congestive) heart failure Is this a current diagnosis for this admission?: Yes (3) Chronic back pain Qualifiers: Back pain location: low back pain Back pain laterality: unspecified Is this a current diagnosis for this admission?: Yes (4) Cor pulmonale (chronic) Is this a current diagnosis for this admission?: Yes (5) Dementia Qualifiers: Dementia type: unspecified type Dementia behavioral disturbance: without behavioral disturbance Qualified Code(s): F03.90 - Unspecified dementia without behavioral disturbance Is this a current diagnosis for this admission?: Yes Plan: She has a history of metastatic disease to the brain. It is unclear how much of her current cognitive dysfunction is related to that, versus Alzheimer's dementia. (6) History of lung cancer Is this a current diagnosis for this admission?: No Plan: Status post chemoradiation therapy with no evidence of recurrence (7) Obesity with serious comorbidity Qualifiers: Obesity type: due to excess calories Obesity classification: adult class 1 (BMI 30 ? 34.9) Body mass index: BMI 31.0-31.9 Qualified Code(s): E66.09 - Other obesity due to excess calories; Z68.31 - Body mass index (BMI) 31.0-31.9, adult; Z68.31 - Body mass index (BMI) 31.0-31.9, adult Is this a current diagnosis for this admission?: Yes Plan: We will put her on a diet consistent with sensible weight loss (8) Hypothyroid Qualifiers: Hypothyroidism type: unspecified Qualified Code(s): E03.9 - Hypothyroidism , unspecified Is this a current diagnosis for this admission?: Yes Plan: Continue her home medications (9) COPD (chronic obstructive pulmonary disease) Qualifiers: COPD type: emphysema Is this a current diagnosis for this admission?: Yes Plan: I do not think this is an exacerbation. Continue home medications (10) Diastolic heart failure Qualifiers: Heart failure chronicity: acute Qualified Code(s): I50.31 - Acute diastolic (congestive) heart failure Is this a current diagnosis for this admission?: Yes Plan: Cautious diuresis
[2017-11-29] MEDS ORDERED: LEVALBUTEROL HCL NEB 1.25 MG/3 ML AMPUL NEB PRN ×2 (19:27→19:30)
[2017-11-29] MEDS ORDERED: MAG HYDROX/AL HYDROX/SIMETH SUSP 30 ML UDCUP PO ONE (20:00)
[2017-11-30] MEDS: VANCOMYCIN HCL INJ 500 MG VIAL PO SCH ×2 (06:17→13:25)
[2017-11-30] MEDS: LANSOPRAZOLE 30 MG TAB.RAP.DR PO SCH (06:17)
[2017-11-30 07:24] LABS: ABSOLUTE EOSINOPHILS # (AUTO) 0.1 10^3/uL (0.0-0.6); ABSOLUTE LYMPHOCYTES (AUTO) 0.7 10^3/uL (0.5-4.7); ABSOLUTE MONOCYTES (AUTO) 0.4 10^3/uL (0.1-1.4); ABSOLUTE NEUT (AUTO) 6.3 10^3/uL (1.7-8.2); BASOPHILS % (AUTO) 0.1 % (0-2); EOSINOPHILS % (AUTO) 0.8 % (0-6); HEMATOCRIT 31.3 % (36.0-47.0); HEMOGLOBIN 10.7 g/dL (12.0-15.5); LYMPHOCYTES % (AUTO) 9.6 % (13-45); MEAN CORPUSCULAR HEMOGLOBIN 33.1 pg (27.0-33.4); MEAN CORPUSCULAR HGB CONC 34.1 g/dL (32.0-36.0); MEAN CORPUSCULAR VOLUME 97 fl (80-97); MONOCYTES % (AUTO) 5.5 % (3-13); PLATELET COUNT 167 10^3/uL (150-450); RED BLOOD COUNT 3.23 10^6/uL (3.72-5.28); RED CELL DISTRIBUTION WIDTH 17.1 % (11.5-14.0); TOTAL CELLS COUNTED % (AUTO) 100 %; WHITE BLOOD COUNT 7.5 10^3/uL (4.0-10.5)
[2017-11-30 07:31] LABS: ALBUMIN 2.9 g/dL (3.5-5.0); BLOOD UREA NITROGEN 31 mg/dL (7-20); CALCIUM 9.2 mg/dL (8.4-10.2); CHLORIDE 99 mmol/L (98-107); GLUCOSE 66 mg/dL (75-110); PHOSPHORUS 3.8 mg/dL (2.5-4.5); POTASSIUM 3.9 mmol/L (3.6-5.0)
[2017-11-30 07:37] LABS: ANION GAP 6 (5-19); CARBON DIOXIDE 36 mmol/L (22-30); SODIUM 140.5 mmol/L (137-145)
[2017-11-30] MEDS: METFORMIN HCL 500 MG TABLET PO SCH (07:43)
[2017-11-30] MEDS: ASCORBIC ACID 500 MG TABLET PO SCH (09:43)
[2017-11-30] MEDS: GLIMEPIRIDE 1 MG TABLET PO SCH (09:43)
[2017-11-30] MEDS: TIOTROPIUM BROMIDE DPI 5 CAP/KIT (18 MCG/CAP) IH SCH (09:43)
[2017-11-30] MEDS: CARVEDILOL 6.25 MG TABLET PO SCH (09:43)
[2017-11-30] MEDS: ENOXAPARIN SODIUM INJ 40 MG/0.4 ML DISP.SYRIN SUBCUT SCH (09:43)
[2017-11-30] MEDS: FERROUS SULFATE 325 MG TABLET PO SCH (09:43)
[2017-11-30] MEDS: OXYCODONE-ACETAMINOPHEN 5-325 MG TABLET PO SCH (09:43)
[2017-11-30] MEDS: LEVOTHYROXINE SODIUM 0.088 MG TABLET PO SCH (09:43)
[2017-11-30] MEDS: POLYETHYLENE GLYCOL 3350 POWDER 17 GM/1 PACKET PO SCH (09:43)
[2017-11-30] MEDS ORDERED: FUROSEMIDE INJ/PF 40 MG/4 ML SDV IV SCH (10:00)
[2017-11-30] MEDS ORDERED: LACTOBACILLUS ACIDOPHILUS 250 MG TAB PO ONE (11:00)
[2017-11-30 14:44] VITALS: BP 106/73
[2017-11-30] MEDS ORDERED: LACTOBACILLUS ACIDOPHILUS 250 MG TAB PO SCH (18:00)
--- NOTE | 2017-12-01 08:47 | Physician Advisory Note ---
Physician Advisor ProgressNote .: Pursuant to the plan for [facility], I have reviewed the medical record for this patient. Physician Advisor Statement: Nice documentation of chronic resp failure requiring 2L O2 at baseline in H&P, chronic cor pulmonale. Please document in DCSummary/ongoing progress notes: 1. All signs/sx/findings supporting dx of Acute diastolic HF (& of C.diff colitis) - abd pain? orthopnea? JVD? SOB/DON/rales/cough/tachypnea .... - H&P states pt had rhonchi, tachycardia, & 2+ edema, no complaints in particular specified. WBC was 12.3. - ED dr states SOB, wheezing, tachypnea. - Nursing notes indicate crackles, DON, SOB, cough, wheezing, edema of abd & BLEs, abd pain, diarrhea, constipation. 2. All other pertinent chronic co-morbidities: chronic hypoxemic respiratory failure, CAD, DM-2 Thanks! CK
--- NOTE | 2017-12-02 08:39 | DISCHARGE SUMMARY E ---
Discharge Summary NAME: TRENTON MCCOY : 1945 AGE: 72Y ADMITTED: 11/28/2017 DISCHARGED: 11/30/2017 CODE STATUS: FULL CODE. PRIMARY CARE PROVIDER: Meliton Collins DISCHARGE DIAGNOSES: Includes: 1. Acute on chronic diastolic congestive heart failure. 2. Clostridium difficile colitis. 3. Chronic back pain. 4. Chronic cor pulmonale. 5. Dementia. 6. History of metastatic disease to the brain. 7. History of lung cancer. 8. Obesity. 9. Hypothyroidism. 10. Chronic obstructive pulmonary disease. DISCHARGE MEDICATIONS: Include: 1. Vancomycin 125 mg p.o. q. 6 hours, 15 tablets, 0 refills. 2. Metformin ER 250 mg p.o. b.i.d. 3. Lisinopril 2.5 mg p.o. daily. 4. Lasix 40 mg p.o. b.i.d. 5. Coreg 6.25 mg p.o. q. 12 hours. 6. Align 4 mg p.o. b.i.d., 28 tablets with 0 refills. 7. Spiriva 1 puff inhalation daily. 8. Xopenex 1.25 mg neb q. 4 hours p.r.n. 9. Duoneb 1 neb q. 4 hours p.r.n. 10. Ferrous sulfate 325 mg p.o. b.i.d. 11. Vitamin C 500 mg p.o. b.i.d. 12. Ultram 50 mg p.o. daily p.r.n. 13. Protonix 40 mg p.o. daily. 14. Percocet 5/325 one tablet p.o. q. 12 hours. 15. Synthroid 0.088 mg p.o. daily. 16. Amaryl 1 mg p.o. daily. 17. ProAir HFA 2 puffs inhalation q. 4 hours p.r.n. DIET: Diabetic, heart healthy. ACTIVITY: As tolerated. CONDITION: Fair. DIAGNOSTICS: Lab values are as follows: Hematology obtained on 11/30/2017: WBCs are 9.5, hemoglobin is 10.7, hematocrit is 31.3, platelet count is 167,000. Venous blood gas obtained on 11/28/2017: PH is 7.39, PCO2 is 45.8, bicarb is 26.9. Chemistry obtained on 11/30/2017: Sodium is 140, potassium 3.9, chloride is 99, carbon dioxide 36, BUN 31, creatinine is 0.70, glucose 85. Calcium is 9.2, phosphorus 3.8, magnesium is 2.1. Bilirubin 0.2, AST 22, ALT is 43, Alk phos 109, CK 21, CK-MB is 2.07, troponin 0.022. BNP is 631, total protein 5.6, albumin 3.5, lipase is 56.1. Urinalysis obtained on 11/28/2017: Color yellow, appearance clear. PH is 6.0, specific gravity is 1.012. Protein negative, glucose greater than 500, ketones negative, occult blood negative, nitrate negative, bilirubin negative, urobilinogen is negative, leukocyte esterase negative, casts 4, mucus rare, ascorbic acid is negative. Serology obtained on 11/28/2017: C. difficile toxin is positive. Microbiology: Blood cultures obtained on 11/28/[address] of the abdomen and pelvis obtained o 11/28/[address] or angiographic evidence of thoracic aortic dissection or acute pulmonary emboli. No acute changes in the abdomen or pelvis. Chest x-ray obtained on 11/28/2017 reveals no significant interval change. Just an abdominal CTA obtained on 11/28/2017 reveals no acute findings. PHYSICAL EXAMINATION: GENERAL: On examination, the patient is a frail, chronically ill-appearing 72-year-old female who is awake, alert, and oriented to person, place, time, and situation. She is verbal, conversational, does not appear to be in distress. VITAL SIGNS: Temperature is 97.9, pulse 99, respirations 16, blood pressure is 106/73, oxygen saturation is 98% on room air. SKIN: Pale, dry. No rash. She is not diaphoretic. HEENT: Pupils equal, round, and reactive to light and accommodation. Conjunctiva is pink. There is no evidence of JVP. CARDIOVASCULAR SYSTEM: Heart is regular. No rub. CHEST: Diminished, symmetrical, unlabored. ABDOMEN: Obese, soft, nontender. EXTREMITIES: No clubbing, cyanosis, edema. PSYCHIATRIC: Appropriate affect, pleasant mood. HISTORY OF PRESENT ILLNESS: The patient is a 72-year-old female with a past medical history that includes multiple medical problems known to the hospitalist service after he presented to the emergency department with a chief complaint of abdominal pain. When the patient was evaluated in the emergency department, she denied any abdominal pain, could not recall having any. According to the patient, she thought she was in the emergency department because her granddaughter was tired of hearing about her complaining about her back pain. The patient did not have any complaints of any pain at the time of admission. The patient actually just completed eating her lunch when she was evaluated. The patient denied any nausea, chest pain, but states she is always short of breath, and there has been no productive cough. While in the emergency department, the patient had findings that were consistent with acute heart failure. The patient had not been taking any diuretic at home. Additionally, the patient had noted to have an episode of diarrhea, which was sent for C. difficile, which was found to be positive and the patient was referred to the hospitalist for admission and management. HOSPITAL COURSE: The patient was admitted to continuous telemetry unit. The patient was gently diuresed as the patient has a very narrow therapeutic window. The patient had complete resolution in her shortness of breath with this. The patient was started on oral vancomycin and the patient had not had any stools the day of discharge. The patient was also added a probiotic as well, was encouraged to eat yogurt with each tray. The patient denied any nausea, vomiting, diarrhea, dizziness, or chest pain. The patient remained afebrile. Her blood pressure is in a good range. The patient appears optivolemic at this point, as again, noted the patient has a very narrow therapeutic window given her hypoalbuminemia and multiple chronic issues. It is also to be noted t hat the patient has had numerous contacts, including 10 inpatient stays in the last calendar year alone and to mention the numerous ER visits. The patient will most likely have an upcoming readmission; however, the patient refuses palliative treatment. DISCHARGE PLANNING: The patient is advised to follow up with a primary care provider within 1-2 weeks for hospital followup. Time spent on this discharge including assessment, plan, physical examination, patient education, review of records is 25 minutes. DICTATING PHYSICIAN: GURPREET MCCLELLAN NP [id number] PHY#: [id number] ID: [id number] JOB#: [id number] ACCT: [id number] cc:MUMTAZ GALLARDO PA > MTDD
== END 2017-11-30 15:00 | disposition home health service (06) | DRG 292 ==
LOC: ER 04:00 → EH 15:01 → 4S 17:10
PROVIDERS: ADMIT Internal Medicine; ATTEND Internal Medicine
DX: I11.0 Hypertensive heart disease with heart failure (principal); A04.72 Enterocolitis due to Clostridium difficile, not specified as recurrent; C34.90 Malignant neoplasm of unspecified part of unspecified bronchus or lung; C79.31 Secondary malignant neoplasm of brain; I50.33 Acute on chronic diastolic (congestive) heart failure; G89.29 Other chronic pain; I27.81 Cor pulmonale (chronic); F03.90 Unspecified dementia, unspecified severity, without behavioral disturbance, psychotic disturbance, mood disturbance, and anxiety; Z68.32 Body mass index [BMI] 32.0-32.9, adult; E03.9 Hypothyroidism, unspecified; E11.9 Type 2 diabetes mellitus without complications; E88.09 Other disorders of plasma-protein metabolism, not elsewhere classified; I25.10 Atherosclerotic heart disease of native coronary artery without angina pectoris; K21.9 Gastro-esophageal reflux disease without esophagitis; M19.90 Unspecified osteoarthritis, unspecified site; F32.9 Major depressive disorder, single episode, unspecified; D64.9 Anemia, unspecified; M54.5 Low back pain; E66.09 Other obesity due to excess calories; J43.9 Emphysema, unspecified; I25.2 Old myocardial infarction; Z79.899 Other long term (current) drug therapy; Z99.81 Dependence on supplemental oxygen; Z90.49 Acquired absence of other specified parts of digestive tract; Z98.42 Cataract extraction status, left eye; Z98.41 Cataract extraction status, right eye; Z60.2 Problems related to living alone; Z88.3 Allergy status to other anti-infective agents; Z88.1 Allergy status to other antibiotic agents; Z79.52 Long term (current) use of systemic steroids; Z87.891 Personal history of nicotine dependence; Z83.6 Family history of other diseases of the respiratory system; Z80.1 Family history of malignant neoplasm of trachea, bronchus and lung
CPT/HCPCS: 36415; 51701; 71045; 71275; 74177; 80053; 80069; 81001; 82550; 82553; 82803; 82962; 83605; 83690; 83735; 83880; 84484; 85025; 87040; 87493; 93005; 93010; 94640; 96365; 96375; 99285; J1650; J1815; J1940; J2405; J2930; J3370; J3475; J3490; J7620

== ENCOUNTER 2017-12-02 21:25 | Emergency (ER) | payer MEDICARE, OTHER ==
--- NOTE | 2017-12-02 22:01 | ER Document Report ---
ED General - General Chief Complaint: Breathing Difficulty Stated Complaint: DIFFICULTY BREATHING Time Seen by Provider: 12/02/17 21:59 Notes: Patient is a 72-year-old female presents with complaints of difficulty breathing. She has been here many times in the past. She has history of COPD as well as CHF. She is recent discharge from the hospital because of C. difficile. She says she is currently on treatment for C. difficile and abdominal pain is improving but still some diarrhea. Today she started noticing she has some swelling especially in her face and then start having difficulty breathing tonight and therefore was brought to the ER. She wears 2 L of oxygen at home. She denies any chest pain. No fevers. No vomiting. No other complaints at this time. TRAVEL OUTSIDE OF THE [place] IN LAST 30 DAYS: No - Related Data Allergies/Adverse Reactions: azithromycin Allergy (Verified 11/13/17 06:50) amoxicillin [Amoxicillin] Adverse Reaction (Verified 11/13/17 06:50) visual hallucinations erythromycin base [Erythromycin Base] Adverse Reaction (Verified 11/13/17 06:50) visual hallucinations Potassium Clavulanate * [From Augmentin] Adverse Reaction (Verified 11/13/17 06: 50) visual hallucinations Past Medical History - Social History Smoking Status: Former Smoker Frequency of alcohol use: None Drug Abuse: None Family History: COPD, Malignancy - Lung cancer - Past Medical History Cardiac Medical History: Reports: Hx Congestive Heart Failure, Hx Coronary Artery Disease, Hx Heart Attack, Hx Hypertension Denies: Hx DVT, Hx Hypercholesterolemia, Hx Pulmonary Embolism Pulmonary Medical History: Reports: Hx Asthma, Hx Bronchitis, Hx COPD - 2 L nasal home oxygen, Hx Pneumonia, Hx Respiratory Failure - Chronic respiratory failure Denies: Hx Sleep Apnea, Hx Tuberculosis Neurological Medical History: Denies: Hx Seizures Endocrine Medical History: Reports: Hx Diabetes Mellitus Type 2, Hx Hypothyroidism. 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 Denies: Hx Cirrhosis, Hx Hepatitis, Hx Ulcer Musculoskeltal Medical History: Reports Hx Arthritis, Denies Hx Multiple Sclerosis, Reports Hx Musculoskeletal Deformity, Reports Hx Musculoskeletal Trauma Psychiatric Medical History: Reports: Hx Dementia, Hx Depression Denies: Hx Bipolar Disorder, Hx Schizophrenia Infectious Medical History: Reports: Hx C-Diff. Denies: Hx Hepatitis Past Surgical History: Reports: Hx Cholecystectomy, Hx Orthopedic Surgery - Foot surgery, Other - cataract bilateral - Immunizations Hx Diphtheria, Pertussis, Tetanus Vaccination: Yes Hx Pneumococcal Vaccination: 08/30/12 Review of Systems - Review of Systems Notes: My Normal Review Basic REVIEW OF SYSTEMS: CONSTITUTIONAL : Denies fever, chills, or sweats. Denies recent illness. EENT: Denies eye, ear, throat, or mouth pain or symptoms. Denies nasal or sinus congestion. CARDIOVASCULAR: Denies chest pain. RESPIRATORY: Difficulty breathing GASTROINTESTINAL: Denies abdominal pain. Diarrhea GENITOURINARY: Denies difficulty urinating, painful urination, burning, frequency, or blood in urine. MUSCULOSKELETAL: Denies neck or back pain or joint pain or swelling. SKIN: Denies rash or skin lesions. NEUROLOGICAL: Denies altered mental status or loss of consciousness. Denies headache. Denies weakness or paralysis or loss of use of either side. Denies problems with gait or speech. Denies sensory or motor loss. ALL OTHER SYSTEMS REVIEWED AND NEGATIVE. Physical Exam - Vital signs Vitals: Pulse Ox 94 12/02/17 20:55 - Notes Notes: General Appearance: Well nourished, alert, cooperative, mild to moderate acute distress, no obvious discomfort. Vitals: reviewed, See vital signs table. Head: Patient has significant swelling to the face. Eyes: PERRL, EOMI, Conjuctiva clear Mouth: No decreasd moisture Throat: No tonsillar inflammation, No airway obstruction, No lymphadenopathy Neck: Supple, no neck tenderness, No thyromegaly Lungs: Bilateral wheezing, bilateral rales, No rhonci, No accessory muscle use, good air exchange bilaterally. Heart: Normal rate, Regular rythm, No murmur, no rub Abdomen: Normal BS, soft, No rigidity, No abdominal tenderness, No guarding, no rebound, no abdominal masses, no organomegaly Extremities: strength 5/5 in all extremities, good pulses in all extremities, no swelling or tenderness in the extremities, 1+ edema. Skin: warm, dry, appropriate color, no rash Neuro: speech clear, oriented x 3, normal affect, responds appropriately to questions. Course - Re-evaluation Re-evalutation: 12/03/17 02:22 Patient's lung curtis are now completely clear. She says she feels much improved. She is satting 98% on 2 L of oxygen. She had a little puffiness in her face when she first arrived. That has since resolved. She has no fluid cannulation on chest x-ray. She looks well and feels well. I feel she is safe to be discharged home. Informed her that she still needs to have a low threshold to return to ER if she has worsening difficulty breathing, fevers, or she feels unwell in any way. She said she is almost out of her nebulizer vials and therefore I wrote a prescription for more albuterol nebulizer vials. Dictation of this chart was performed using voice recognition software; therefore, there may be some unintended grammatical errors. - Vital Signs Vital signs: Temp Pulse Resp BP Pulse Ox 18 104/70 99 12/03/17 02:03 12/03/17 02:03 12/03/17 02:03 - Laboratory Result Diagrams: 12/02/17 22:30 12/02/17 22:30 Laboratory results interpreted by me: 12/02/17 12/02/17 12/03/17 22:30 22:30 00:37 RBC 2.98 L Hgb 9.8 L Hct 28.7 L RDW 17.5 H Lymphocytes % 11.7 L VBG pH 7.43 H VBG HCO3 36.7 H Potassium 3.4 L Chloride 95 L Carbon Dioxide 37 H Total Bilirubin < 0.1 L Total Protein 4.6 L Albumin 2.7 L - EKG Interpretation by Me Additional EKG results interpreted by me: 12/02/17 22:01 EKG is reviewed and interpreted by me. EKG shows sinus tachycardia with rate [address] segment elevation or depression. No ischemic T-wave inversions. Patient does have a right bundle branch block which is unchanged comparison to her previous EKG from November 28, 2017. UT interval is within normal range. QRS duration is prolonged. QTc interval is borderline. Discharge - Discharge Clinical Impression: COPD exacerbation Condition: Good Disposition: HOME, SELF-CARE Additional Instructions: Please use you the nebulizer treatments as prescribed. Please return to the ER immediately if you have worsening difficulty breathing, fevers, chest pain, or any recurrent difficulty breathing. We did give you a dose of steroids here so please keep a close eye on your blood sugar to make sure it is not getting high. Please follow up with your doctor on Monday. Please take your Lasix as prescribed. Please return to the ER if you feel that you are starting to retain fluid again. Prescriptions: Albuterol Sulfate [Albuterol Sulfate 2.5mg/3 mL] 1 vial IH Q4 PRN #30 vial PRN Reason: wheezing
[2017-12-02] MEDS ORDERED: IPRATROPIUM/ALBUTEROL 0.5-2.5 MG/3 ML AMPUL NEB ONE (22:06)
[2017-12-02 22:46] LABS: ABSOLUTE EOSINOPHILS # (AUTO) 0.1 10^3/uL (0.0-0.6); ABSOLUTE LYMPHOCYTES (AUTO) 0.7 10^3/uL (0.5-4.7); ABSOLUTE MONOCYTES (AUTO) 0.7 10^3/uL (0.1-1.4); ABSOLUTE NEUT (AUTO) 4.8 10^3/uL (1.7-8.2); BASOPHILS % (AUTO) 0.7 % (0-2); EOSINOPHILS % (AUTO) 0.8 % (0-6); HEMATOCRIT 28.7 % (36.0-47.0); HEMOGLOBIN 9.8 g/dL (12.0-15.5); LYMPHOCYTES % (AUTO) 11.7 % (13-45); MEAN CORPUSCULAR HEMOGLOBIN 32.9 pg (27.0-33.4); MEAN CORPUSCULAR HGB CONC 34.1 g/dL (32.0-36.0); MEAN CORPUSCULAR VOLUME 96 fl (80-97); MONOCYTES % (AUTO) 10.9 % (3-13); PLATELET COUNT 185 10^3/uL (150-450); RED BLOOD COUNT 2.98 10^6/uL (3.72-5.28); RED CELL DISTRIBUTION WIDTH 17.5 % (11.5-14.0); SEGMENTED NEUTROPHILS % (AUTO) 75.9 % (42-78); TOTAL CELLS COUNTED % (AUTO) 100 %; WHITE BLOOD COUNT 6.3 10^3/uL (4.0-10.5)
[2017-12-02 23:04] LABS: ALANINE AMINOTRANSFERASE 35 U/L (9-52); ALBUMIN 2.7 g/dL (3.5-5.0); ALKALINE PHOSPHATASE 68 U/L (38-126); ANION GAP 6 (5-19); ASPARTATE AMINO TRANSFERASE 19 U/L (14-36); BLOOD UREA NITROGEN 20 mg/dL (7-20); CALCIUM 9.1 mg/dL (8.4-10.2); CARBON DIOXIDE 37 mmol/L (22-30); CHLORIDE 95 mmol/L (98-107); GLUCOSE 107 mg/dL (75-110); POTASSIUM 3.4 mmol/L (3.6-5.0); SODIUM 137.7 mmol/L (137-145); TOTAL PROTEIN 4.6 g/dL (6.3-8.2)
[2017-12-02 23:09] LABS: BILIRUBIN,TOTAL < 0.1 mg/dL (0.2-1.3)
[2017-12-02 23:16] LABS: NT PRO BNP 470 pg/mL (5-900)
--- NOTE | 2017-12-02 23:16 | RADIOLOGY REPORT (SQ) ---
EXAM DESCRIPTION: CHEST SINGLE VIEW COMPLETED DATE/TIME: 12/02/2017 11:08 pm REASON FOR STUDY: dyspnea COMPARISON: 11/28/2017 EXAM PARAMETERS: NUMBER OF VIEWS: One view. TECHNIQUE: Single frontal radiographic view of the chest acquired. RADIATION DOSE: NA LIMITATIONS: None. FINDINGS: LUNGS AND PLEURA: No opacities, masses or pneumothorax. No pleural effusion. MEDIASTINUM AND HILAR STRUCTURES: Chronic changes in the right hilum. HEART AND VASCULAR STRUCTURES: Heart normal in size. Normal vasculature. BONES: No acute findings. HARDWARE: None in the chest. OTHER: No other significant finding. IMPRESSION: NO ACUTE RADIOGRAPHIC FINDING IN THE CHEST. TECHNICAL DOCUMENTATION: JOB ID: [id number] [employer]- All Rights Reserved Reading location - IP/workstation name: [email or web address]
[2017-12-02 23:41] LABS: TROPONIN I < 0.012 ng/mL
[2017-12-02] MEDS ORDERED: ALBUTEROL SULFATE 0.083% NEB 2.5 MG/3 ML AMPUL NEB ONE (23:42)
[2017-12-02] MEDS ORDERED: METHYLPREDNISOLONE INJ 125 MG/2 ML SDV IV ONE (23:42)
[2017-12-03 00:46] LABS: VENOUS BLOOD BASE EXCESS 10.6 mmol/L; VENOUS BLOOD HCO3 36.7 mmol/L (20-32); VENOUS BLOOD PCO2 57.2 mmHg (35-63); VENOUS BLOOD PH 7.43 (7.30-7.42)
[2017-12-03 02:36] VITALS: BP 104/70
--- NOTE | 2017-12-03 10:30 | EKG REPORT ---
SEVERITY:- ABNORMAL ECG - SINUS TACHYCARDIA RIGHT BUNDLE BRANCH BLOCK : Confirmed by: Mercedes Solomon 03-Dec-2017 10:29:47
== END 2017-12-03 03:28 | disposition home or self-care (01) ==
LOC: ER 21:25
DX: J44.1 Chronic obstructive pulmonary disease with (acute) exacerbation (principal); R22.0 Localized swelling, mass and lump, head; Z99.81 Dependence on supplemental oxygen; Z87.891 Personal history of nicotine dependence
CPT/HCPCS: 93005; 94640 ×2; 99285; 96374; 36415; 85025; 80053; 84484; 82803; 83880; 71045; 93010; J2930; A9270 ×2; J7620

== ENCOUNTER 2017-12-09 14:15 | Emergency (ER) | payer MEDICARE, OTHER ==
--- NOTE | 2017-12-09 15:55 | EKG REPORT ---
SEVERITY:- ABNORMAL ECG - SINUS RHYTHM RIGHT BUNDLE BRANCH BLOCK : Confirmed by: Issa Martinez MD 09-Dec-2017 15:54:47
[2017-12-09 16:18] LABS: INTERNATIONAL RATION (INR) 0.85; PROTHROMBIN TIME 12.1 SEC (11.4-15.4)
[2017-12-09 16:23] LABS: ABSOLUTE LYMPHOCYTES (AUTO) 0.6 10^3/uL (0.5-4.7); ABSOLUTE MONOCYTES (AUTO) 0.7 10^3/uL (0.1-1.4); ABSOLUTE NEUT (AUTO) 6.1 10^3/uL (1.7-8.2); BASOPHILS % (AUTO) 0.3 % (0-2); EOSINOPHILS % (AUTO) 0.6 % (0-6); HEMATOCRIT 25.1 % (36.0-47.0); HEMOGLOBIN 8.6 g/dL (12.0-15.5); MEAN CORPUSCULAR HEMOGLOBIN 33.2 pg (27.0-33.4); MEAN CORPUSCULAR HGB CONC 34.1 g/dL (32.0-36.0); MEAN CORPUSCULAR VOLUME 97 fl (80-97); MONOCYTES % (AUTO) 9.2 % (3-13); PLATELET COUNT 208 10^3/uL (150-450); RED BLOOD COUNT 2.59 10^6/uL (3.72-5.28); RED CELL DISTRIBUTION WIDTH 16.8 % (11.5-14.0); SEGMENTED NEUTROPHILS % (AUTO) 81.9 % (42-78); TOTAL CELLS COUNTED % (AUTO) 100 %; WHITE BLOOD COUNT 7.4 10^3/uL (4.0-10.5)
[2017-12-09 16:26] LABS: VENOUS BLOOD BASE EXCESS 15.8 mmol/L; VENOUS BLOOD HCO3 42.9 mmol/L (20-32); VENOUS BLOOD PH 7.38 (7.30-7.42)
[2017-12-09 16:31] LABS: VENOUS BLOOD PCO2 74.5 mmHg (35-63)
[2017-12-09 16:37] LABS: ALANINE AMINOTRANSFERASE 33 U/L (9-52); ALKALINE PHOSPHATASE 54 U/L (38-126); ASPARTATE AMINO TRANSFERASE 19 U/L (14-36); BILIRUBIN,DIRECT 0.2 mg/dL (0.0-0.4); BILIRUBIN,TOTAL 0.3 mg/dL (0.2-1.3); BLOOD UREA NITROGEN 19 mg/dL (7-20); CALCIUM 9.2 mg/dL (8.4-10.2); CHLORIDE 92 mmol/L (98-107); GLUCOSE 73 mg/dL (75-110); POTASSIUM 3.9 mmol/L (3.6-5.0); SODIUM 141.5 mmol/L (137-145); TOTAL PROTEIN 5.2 g/dL (6.3-8.2)
--- NOTE | 2017-12-09 16:41 | RADIOLOGY REPORT (SQ) ---
EXAM DESCRIPTION: CHEST SINGLE VIEW COMPLETED DATE/TIME: 12/09/2017 4:25 pm REASON FOR STUDY: hx pneumonia COMPARISON: 12/02/2017. 10/09/2017. 08/12/2017. EXAM PARAMETERS: NUMBER OF VIEWS: One view. TECHNIQUE: Single frontal radiographic view of the chest acquired. RADIATION DOSE: NA LIMITATIONS: None. FINDINGS: LUNGS AND PLEURA: There is fibrotic scarring surrounding the right hilum. These findings are stable and essentially unchanged from 08/12/2017. Overall decreased aeration of the lungs since t he prior study of 08/12/2017. Chronic left basilar scarring and pleural thickening. MEDIASTINUM AND HILAR STRUCTURES: No masses. Contour normal. HEART AND VASCULAR STRUCTURES: Heart normal in size. Normal vasculature. BONES: No acute findings. HARDWARE: None in the chest. OTHER: Chest leads in place. IMPRESSION: Persistent fibrotic scarring right perihilar region. Chronic scarring left lung base wi th left pleural thickening. TECHNICAL DOCUMENTATION: JOB ID: [id number] [employer] All Rights Reserved Reading location - IP/workstation name: [email or web address]
[2017-12-09 16:43] LABS: ANION GAP 11 (5-19)
[2017-12-09 16:47] LABS: CARBON DIOXIDE 39 mmol/L (22-30)
[2017-12-09] MEDS ORDERED: NORMAL SALINE 1000 ML 1,000 ML IV ONE (17:57)
[2017-12-09 18:24] LABS: AMORPHOUS SEDIMENT,URINE TRACE /HPF; APPEARANCE,URINE TURBID; BILIRUBIN,URINE NEGATIVE (NEGATIVE); COLOR,URINE YELLOW; GLUCOSE, URINE NEGATIVE (NEGATIVE); KETONES,URINE NEGATIVE (NEGATIVE); LEUKOCYTE ESTERASE,URINE MODERATE (NEGATIVE); NITRITE,URINE POSITIVE (NEGATIVE); PROTEIN,URINE NEGATIVE (NEGATIVE); URINE SPECIFIC GRAVITY 1.008; UROBILINOGEN,URINE NEGATIVE mg/dL (<2.0)
[2017-12-09] MEDS ORDERED: NITROFURANTOIN MONOHYD/M-CRYST 100 MG CAPSULE PO ONE (18:57)
--- NOTE | 2017-12-09 19:12 | ER Document Report ---
ED General - General Chief Complaint: Urinary Problem Stated Complaint: URINARY ISSUES Time Seen by Provider: 12/09/17 14:39 Mode of Arrival: Medic Information source: Patient TRAVEL OUTSIDE OF THE [place] IN LAST 30 DAYS: No - HPI Patient complains to provider of: hematuria Onset: Just prior to arrival Associated symptoms: Nonproductive cough Exacerbated by: Denies Relieved by: Denies - Related Data Allergies/Adverse Reactions: azithromycin Allergy (Verified 11/13/17 06:50) amoxicillin [Amoxicillin] Adverse Reaction (Verified 11/13/17 06:50) visual hallucinations erythromycin base [Erythromycin Base] Adverse Reaction (Verified 11/13/17 06:50) visual hallucinations Potassium Clavulanate * [From Augmentin] Adverse Reaction (Verified 11/13/17 06: 50) visual hallucinations Past Medical History - General Information source: [facility], [facility] - Social History Smoking Status: Never Smoker Frequency of alcohol use: None Drug Abuse: None Lives with: Jail Family History: COPD, Malignancy - Lung cancer Patient has suicidal ideation: No Patient has homicidal ideation: No - Past Medical History Cardiac Medical History: Reports: Hx Congestive Heart Failure, Hx Coronary Artery Disease, Hx Heart Attack, Hx Hypertension Denies: Hx DVT, Hx Hypercholesterolemia, Hx Pulmonary Embolism Pulmonary Medical History: Reports: Hx Asthma, Hx Bronchitis, Hx COPD - 2 L nasal home oxygen, Hx Pneumonia, Hx Respiratory Failure - Chronic respiratory failure Denies: Hx Sleep Apnea, Hx Tuberculosis Neurological Medical History: Denies: Hx Seizures Endocrine Medical History: Reports: Hx Diabetes Mellitus Type 2, Hx Hypothyroidism. 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 Denies: Hx Cirrhosis, Hx Hepatitis, Hx Ulcer Musculoskeltal Medical History: Reports Hx Arthritis, Denies Hx Multiple Sclerosis, Reports Hx Musculoskeletal Deformity, Reports Hx Musculoskeletal Trauma Psychiatric Medical History: Reports: Hx Dementia, Hx Depression Denies: Hx Bipolar Disorder, Hx Schizophrenia Infectious Medical History: Reports: Hx C-Diff. Denies: Hx Hepatitis Past Surgical History: Reports: Hx Cholecystectomy, Hx Orthopedic Surgery - Foot surgery, Other - cataract bilateral - Immunizations Hx Diphtheria, Pertussis, Tetanus Vaccination: Yes Hx Pneumococcal Vaccination: 08/30/12 Review of Systems - Review of Systems Constitutional: denies: Fever EENT: No symptoms reported Cardiovascular: No symptoms reported Respiratory: Cough Gastrointestinal: No symptoms reported Genitourinary: See HPI Skin: No symptoms reported Hematologic/Lymphatic: No symptoms reported Neurological/Psychological: No symptoms reported Physical Exam - Vital signs Vitals: Resp Pulse Ox 19 100 12/09/17 14:52 12/09/17 14:52 Course - Re-evaluation Re-evalutation: 12/09/17 19:15 Labs- All tests 24 hr 12/09/17 12/09/17 12/09/17 15:45 15:45 15:45 WBC 7.4 RBC 2.59 L Hgb 8.6 L Hct 25.1 L MCV 97 MCH 33.2 MCHC 34.1 RDW 16.8 H Plt Count 208 Seg Neutrophils % 81.9 H Lymphocytes % 8.0 L Monocytes % 9.2 Eosinophils % 0.6 Basophils % 0.3 Absolute Neutrophils 6.1 Absolute Lymphocytes 0.6 Absolute Monocytes 0.7 Absolute Eosinophils 0.0 Absolute Basophils 0.0 PT 12.1 INR 0.85 VBG pH VBG pCO2 VBG HCO3 VBG Base Excess Sodium 141.5 Potassium 3.9 Chloride 92 L Carbon Dioxide 39 H Anion Gap 11 BUN 19 Creatinine 1.13 Est GFR ( Amer) 57 L Est GFR (Non-Af Amer) 47 L Glucose 73 L Lactic Acid Calcium 9.2 Total Bilirubin 0.3 Direct Bilirubin 0.2 Neonat Total Bilirubin Not Reportable Neonat Direct Bilirubin Not Reportable Neonat Indirect Bili Not Reportable AST 19 ALT 33 Alkaline Phosphatase 54 Total Protein 5.2 L Albumin 3.0 L Urine Color Urine Appearance Urine pH Ur Specific [place] Urine Protein Urine Glucose (UA) Urine Ketones Urine Blood Urine Nitrite Urine Bilirubin Urine Urobilinogen Ur Leukocyte Esterase Urine WBC (Auto) Urine RBC (Auto) U Hyaline Cast (Auto) Urine Bacteria (Auto) Urine WBC Clumps Squamous Epi Cells Auto Amorphous Sediment Auto Urine Mucus (Auto) Urine Ascorbic Acid 12/09/17 12/09/17 12/09/17 15:45 15:45 17:56 WBC RBC Hgb Hct MCV MCH MCHC RDW Plt Count Seg Neutrophils % Lymphocytes % Monocytes % Eosinophils % Basophils % Absolute Neutrophils Absolute Lymphocytes Absolute Monocytes Absolute Eosinophils Absolute Basophils PT INR VBG pH 7.38 VBG pCO2 74.5 H* VBG HCO3 42.9 H VBG Base Excess 15.8 Sodium Potassium Chloride Carbon Dioxide Anion Gap BUN Creatinine Est GFR ( Amer) Est GFR (Non-Af Amer) Glucose Lactic Acid 1.5 Calcium Total Bilirubin Direct Bilirubin Neonat Total Bilirubin Neonat Direct Bilirubin Neonat Indirect Bili AST ALT Alkaline Phosphatase Total Protein Albumin Urine Color YELLOW Urine Appearance TURBID Urine pH 7.0 Ur Specific [place] 1.008 Urine Protein NEGATIVE Urine Glucose (UA) NEGATIVE Urine Ketones NEGATIVE Urine Blood SMALL H Urine Nitrite POSITIVE H Urine Bilirubin NEGATIVE Urine Urobilinogen NEGATIVE Ur Leukocyte Esterase MODERATE H Urine WBC (Auto) 87 Urine RBC (Auto) 36 U Hyaline Cast (Auto) 9 Urine Bacteria (Auto) 1+ Urine WBC Clumps FEW Squamous Epi Cells Auto 6 Amorphous Sediment Auto TRACE Urine Mucus (Auto) RARE Urine Ascorbic Acid NEGATIVE Chest X-Ray 12/09/17 14:25 IMPRESSION: Persistent fibrotic scarring right perihilar region. Chronic scarring left lung base with left pleural thickening. 12/09/17 19:18Patient remained hemodynamically stable throughout her stay in the emergency department. She was alert and oriented throughout her stay without complaints. Her sugar did drop slightly however she was fed and responded nicely to the p.o. intake. Urine culture was sent. Her lactic acid was negative she did not have a rectal temperature Which all pointed towards her not having a bacteremia or sepsis.Patient was discharged home on Macrodantin 12/09/17 19:19 - Vital Signs Vital signs: Temp Pulse Resp BP Pulse Ox 98.9 F 94 15 107/71 99 12/09/17 17:44 12/09/17 15:06 12/09/17 19:01 12/09/17 19:01 12/09/17 19:01 - Laboratory Result Diagrams: 12/09/17 15:45 12/09/17 15:45 Laboratory results interpreted by me: 12/09/17 12/09/17 12/09/17 15:45 15:45 15:45 RBC 2.59 L Hgb 8.6 L Hct 25.1 L RDW 16.8 H Seg Neutrophils % 81.9 H Lymphocytes % 8.0 L VBG pCO2 74.5 H* VBG HCO3 42.9 H Chloride 92 L Carbon Dioxide 39 H Est GFR ( Amer) 57 L Est GFR (Non-Af Amer) 47 L Glucose 73 L Total Protein 5.2 L Albumin 3.0 L Urine Blood Urine Nitrite Ur Leukocyte Esterase 12/09/17 17:56 RBC Hgb Hct RDW Seg Neutrophils % Lymphocytes % VBG pCO2 VBG HCO3 Chloride Carbon Dioxide Est GFR ( Amer) Est GFR (Non-Af Amer) Glucose Total Protein Albumin Urine Blood SMALL H Urine Nitrite POSITIVE H Ur Leukocyte Esterase MODERATE H - Diagnostic Test Radiology reviewed: Image reviewed, Reports reviewed - EKG Interpretation by Me EKG shows normal: Sinus rhythm [place]/QRS: RBBB When compared to previous EKG there are: No significant change Discharge - Discharge Clinical Impression: UTI (urinary tract infection), Hematuria Condition: Stable Disposition: HOME-SNF (ED ONLY) Instructions: Urinary Tract Infection ([facility]), Nitrofurantoin ([facility]) Additional Instructions: Drink plenty of water and return to the emergency department if you have worsening symptoms. Please take Macrobid as prescribed Prescriptions: Nitrofurantoin/Nitrofuran Mac [Macrobid 100 mg Capsule] 1 tab PO BID #20 capsule Referrals: ARASELI AGUILAR MD [Primary Care Provider] - Follow up in 3-5 days
[2017-12-09 22:34] VITALS: BP 112/58
== END 2017-12-09 22:33 ==
LOC: ER 14:15
DX: N39.0 Urinary tract infection, site not specified (principal); R31.9 Hematuria, unspecified; R05 Cough; I45.10 Unspecified right bundle-branch block; I25.10 Atherosclerotic heart disease of native coronary artery without angina pectoris; I10 Essential (primary) hypertension; I25.2 Old myocardial infarction; J44.9 Chronic obstructive pulmonary disease, unspecified; E11.9 Type 2 diabetes mellitus without complications; Z85.841 Personal history of malignant neoplasm of brain; Z85.118 Personal history of other malignant neoplasm of bronchus and lung; Z88.1 Allergy status to other antibiotic agents
CPT/HCPCS: 93005; 99284; 96360; 36415; 87040; 87086; 82962; 85025; 85610; 87088; 80053; 81001; 87186; 82803; 83605; 71045; 93010; J7030; A9270; J8499

== ENCOUNTER 2017-12-10 15:21 | Inpatient (IN) | payer MEDICARE, OTHER ==
--- NOTE | 2017-12-10 15:48 | ER Document Report ---
ED General - General Stated Complaint: BLOOD PRESSURE ISSUES Time Seen by Provider: 12/10/17 15:47 Mode of Arrival: Medic Information source: Patient, Emergency Med Personnel TRAVEL OUTSIDE OF THE [place] IN LAST 30 DAYS: No - HPI Onset: This morning Onset/Duration: Gradual Quality of pain: Other - CHRONIC PAIN, NOTHING UNUSUAL Associated symptoms: Body/muscle aches, Productive cough Exacerbated by: Denies Relieved by: Denies Similar symptoms previously: Yes Recently seen / treated by doctor: Yes - YESTERDAY, [facility] Notes: Patient acknowledges she was seen in this emergency department yesterday, was diagnosed with urinary tract infection but says she was unable to get her prescriptions filled because her pharmacy was closed until Monday. - Related Data Allergies/Adverse Reactions: azithromycin Allergy (Verified 11/13/17 06:50) amoxicillin [Amoxicillin] Adverse Reaction (Verified 11/13/17 06:50) visual hallucinations erythromycin base [Erythromycin Base] Adverse Reaction (Verified 11/13/17 06:50) visual hallucinations Potassium Clavulanate * [From Augmentin] Adverse Reaction (Verified 11/13/17 06: 50) visual hallucinations Past Medical History - General Information source: Patient, [facility] Records - Social History Smoking Status: Former Smoker Cigarette use (# per day): No Chew tobacco use (# tins/day): No Frequency of alcohol use: None Drug Abuse: None Lives with: Family Family History: COPD, Malignancy - Lung cancer - Past Medical History Cardiac Medical History: Reports: Hx Congestive Heart Failure, Hx Coronary Artery Disease, Hx Heart Attack, Hx Hypertension Denies: Hx DVT, Hx Hypercholesterolemia, Hx Pulmonary Embolism Pulmonary Medical History: Reports: Hx Asthma, Hx Bronchitis, Hx COPD - 2 L nasal home oxygen, Hx Pneumonia, Hx Respiratory Failure - Chronic respiratory failure Denies: Hx Sleep Apnea, Hx Tuberculosis Neurological Medical History: Denies: Hx Seizures Endocrine Medical History: Reports: Hx Diabetes Mellitus Type 2, Hx Hypothyroidism. 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 Denies: Hx Cirrhosis, Hx Hepatitis, Hx Ulcer Musculoskeltal Medical History: Reports Hx Arthritis, Denies Hx Multiple Sclerosis, Reports Hx Musculoskeletal Deformity, Reports Hx Musculoskeletal Trauma Psychiatric Medical History: Reports: Hx Dementia, Hx Depression Denies: Hx Bipolar Disorder, Hx Schizophrenia Infectious Medical History: Reports: Hx C-Diff. Denies: Hx Hepatitis Past Surgical History: Reports: Hx Cholecystectomy, Hx Orthopedic Surgery - Foot surgery, Other - cataract bilateral - Immunizations Hx Diphtheria, Pertussis, Tetanus Vaccination: Yes Hx Pneumococcal Vaccination: 08/30/12 Review of Systems - Review of Systems Constitutional: Weakness EENT: No symptoms reported Cardiovascular: No symptoms reported Respiratory: See HPI, Cough Gastrointestinal: No symptoms reported Genitourinary: No symptoms reported Female Genitourinary: Post menopausal Musculoskeletal: No symptoms reported Skin: No symptoms reported Neurological/Psychological: Weakness Physical Exam - Vital signs Vitals: Temp Pulse Resp Pulse Ox 98.3 F 110 H 24 H 100 12/10/17 15:24 12/10/17 15:24 12/10/17 15:24 12/10/17 15:24 Interpretation: Hypotensive, Tachycardic, Tachypneic - General General appearance: Appears well, Alert In distress: None - HEENT Head: Normocephalic Eyes: Normal Conjunctiva: Normal Ears: Normal Nasal: Normal Mouth/Lips: Normal Mucous membranes: Normal - Respiratory Respiratory status: No respiratory distress Chest status: Nontender Breath sounds: Productive cough, Wheezing Chest palpation: Normal - Cardiovascular Rhythm: Regular, Tachycardia Heart sounds: Normal auscultation Murmur: No - Abdominal Inspection: Obese - Extremities General upper extremity: Normal inspection General lower extremity: Normal inspection. No: Tender, Edema - Neurological Neuro grossly intact: Yes Cognition: Normal Orientation: AAOx4 - Psychological Associated symptoms: Normal affect, Normal mood - Skin Skin Temperature: Warm Skin Moisture: Dry Skin Color: Normal Skin Turgor: Elastic Course - Vital Signs Vital signs: Temp Pulse Resp BP Pulse Ox 98.3 F 110 H 18 97/63 L 100 12/10/17 15:24 12/10/17 15:24 12/10/17 18:02 12/10/17 18:02 12/10/17 18:02 - Laboratory Result Diagrams: 12/10/17 16:23 12/10/17 16:23 Laboratory results interpreted by me: 12/10/17 12/10/17 16:23 16:23 RBC 2.52 L Hgb 8.2 L Hct 24.2 L RDW 16.7 H Seg Neutrophils % 79.8 H Lymphocytes % 9.7 L Chloride 96 L Carbon Dioxide 39 H Est GFR (Non-Af Amer) 56 L Glucose 112 H Calcium 8.2 L Total Bilirubin < 0.1 L Creatine Kinase < 20 L Total Protein 4.8 L Albumin 2.8 L - Diagnostic Test Radiology reviewed: Image reviewed, Reports reviewed - EKG Interpretation by Me EKG shows normal: Sinus rhythm, [place], Intervals, ST-T Waves. abnormal: QRS Complexes Rate: Tachycardia Rhythm: APC's [place]/QRS: RBBB - Consults DR. COLEMAN Time consulted: 17:50 Consulted provider: will come to ER Discharge - Discharge Clinical Impression: Tachypnea, Tachycardia Urinary tract infection Qualifiers: Urinary tract infection type: site unspecified Hematuria presence: without hematuria Qualified Code(s): N39.0 - Urinary tract infection, site not specified Hypotension Qualifiers: Hypotension type: unspecified hypotension type Qualified Code(s): I95.9 - Hypotension, unspecified COPD (chronic obstructive pulmonary disease) Qualifiers: COPD type: unspecified COPD Qualified Code(s): J44.9 - Chronic obstructive pulmonary disease, unspecified Condition: Fair Disposition: ADMITTED INPATIENT Admitting Provider: Hospitalist Unit Admitted: Telemetry
[2017-12-10] MEDS ORDERED: LEVOFLOXACIN 750 MG/D5W RTU 750 MG/150 ML RTUPB IV ONE (16:14)
[2017-12-10 16:35] LABS: ABSOLUTE LYMPHOCYTES (AUTO) 0.6 10^3/uL (0.5-4.7); ABSOLUTE MONOCYTES (AUTO) 0.6 10^3/uL (0.1-1.4); ABSOLUTE NEUT (AUTO) 4.6 10^3/uL (1.7-8.2); BASOPHILS % (AUTO) 0.1 % (0-2); EOSINOPHILS % (AUTO) 0.5 % (0-6); HEMATOCRIT 24.2 % (36.0-47.0); HEMOGLOBIN 8.2 g/dL (12.0-15.5); LYMPHOCYTES % (AUTO) 9.7 % (13-45); MEAN CORPUSCULAR HEMOGLOBIN 32.7 pg (27.0-33.4); MEAN CORPUSCULAR VOLUME 96 fl (80-97); MONOCYTES % (AUTO) 9.9 % (3-13); PLATELET COUNT 210 10^3/uL (150-450); RED BLOOD COUNT 2.52 10^6/uL (3.72-5.28); RED CELL DISTRIBUTION WIDTH 16.7 % (11.5-14.0); SEGMENTED NEUTROPHILS % (AUTO) 79.8 % (42-78); TOTAL CELLS COUNTED % (AUTO) 100 %; WHITE BLOOD COUNT 5.8 10^3/uL (4.0-10.5)
--- NOTE | 2017-12-10 16:43 | EKG REPORT ---
SEVERITY:- ABNORMAL ECG - SINUS TACHYCARDIA ATRIAL PREMATURE COMPLEX RIGHT BUNDLE BRANCH BLOCK : Confirmed by: Issa Martinez MD 10-Dec-2017 16:43:08
[2017-12-10 16:58] LABS: ALANINE AMINOTRANSFERASE 32 U/L (9-52); ALBUMIN 2.8 g/dL (3.5-5.0); ALKALINE PHOSPHATASE 55 U/L (38-126); ASPARTATE AMINO TRANSFERASE 17 U/L (14-36); BLOOD UREA NITROGEN 17 mg/dL (7-20); CALCIUM 8.2 mg/dL (8.4-10.2); CHLORIDE 96 mmol/L (98-107); GLUCOSE 112 mg/dL (75-110); POTASSIUM 3.8 mmol/L (3.6-5.0); SODIUM 141.5 mmol/L (137-145); TOTAL PROTEIN 4.8 g/dL (6.3-8.2)
[2017-12-10 17:05] LABS: ANION GAP 7 (5-19); CARBON DIOXIDE 39 mmol/L (22-30)
[2017-12-10 17:06] LABS: CREATINE KINASE MB 0.48 ng/mL (<4.55)
[2017-12-10 17:08] LABS: BILIRUBIN,TOTAL < 0.1 mg/dL (0.2-1.3); CREATINE KINASE < 20 U/L (30-135)
[2017-12-10 17:11] LABS: TROPONIN I < 0.012 ng/mL
--- NOTE | 2017-12-10 17:22 | RADIOLOGY REPORT (SQ) ---
EXAM DESCRIPTION: CHEST SINGLE VIEW COMPLETED DATE/TIME: 12/10/2017 4:39 pm REASON FOR STUDY: WHEEZING, TACHYPNEA COMPARISON: Chest x-ray 12/09/2017, 11/21/2017. CT angiogram chest 11/28/2017, 11/21/2017. EXAM PARAMETERS: NUMBER OF VIEWS: One view. TECHNIQUE: Single frontal radiographic view of the chest acquired. RADIATION DOSE: NA LIMITATIONS: None. FINDINGS: LUNGS AND PLEURA: No consolidation, pneumothorax or pleural effusion. MEDIASTINUM AND HILAR STRUCTURES: Redemonstration of chronic scarring at the right perihilar region, may be secondary to prior radiation changes. HEART AND VASCULAR STRUCTURES: Heart normal in size. Normal vasculature. BONES: No acute findings. HARDWARE: None in the chest. IMPRESSION: No acute radiographic finding in the chest. TECHNICAL DOCUMENTATION: JOB ID: [id number] [employer]- All Rights Reserved Reading location - IP/workstation name: [email or web address]
[2017-12-10] MEDS: NORMAL SALINE 1000 ML 1,000 ML IV PRN ×2 (18:10→19:04)
[2017-12-10] MEDS ORDERED: 1/2 NORMAL SALINE 1,000 ML IV PRN (18:19)
[2017-12-10] MEDS ORDERED: ONDANSETRON 4 MG TAB.RAPDIS PO PRN (18:19)
[2017-12-10] MEDS ORDERED: ONDANSETRON HCL INJ/PF 4 MG/2 ML SDV IV PRN (18:19)
[2017-12-10] MEDS ORDERED: ACETAMINOPHEN 325 MG TABLET PO PRN (18:19)
[2017-12-10] MEDS ORDERED: GLUCAGON,HUMAN RECOMB 1 MG INJ IM PRN (18:34)
[2017-12-10] MEDS ORDERED: DEXTROSE 50%-WATER 25 GM/50 ML DISP.SYRIN IV PRN ×2 (18:34)
[2017-12-10] MEDS ORDERED: DEXTROSE 40% GEL 15 GM TUBE PO PRN ×2 (18:34)
--- NOTE | 2017-12-10 18:34 | PDOC H&P ---
History of Present Illness Admission Date/PCP: Dr. Hernandez 12/10/17 Patient complains of: Shortness of breath cough dysuria History of Present Illness: TRENTON DIALLO is a 72 year old female with PMH of Diabetes Hypertension Emphysema Chronic hypoxic respiratory failure on 2L NC at home Iron deficiency anemia Hypothyroidism Arthritis GERD External hemorrhoids She presented to the hospital on 12/09/17, was diagnosed with a UTI and discharged from the ER with a prescription for antibiotics which she could not fill since her pharmacy is closed till Monday. She presented back to the ER today with similar symptoms and was found to have sinus tachcardia, borderline low BP and given IV fluids and Levaquin and refereed for admission. No sick contacts. Positive chills, rhinorrhea and sore throat. Cough with green sputum. No chest pain. Positive dysuria Healthcare POA son Jason Diallo [phone]. Meds: Lisinopril 5 mg daily Tramadol 50 mg twice a day Metformin 500 mg twice a day Calcium and vitamin D Multivitamin Synthroid 88 mcg Iron tablet Pantoprazole 40 mg daily Albuterol nebs 3-4 times a day Probiotic daily Furosemide 20 mg daily Coreg 6.25 mg twice a day Glimepiride 1 mg once a day Spiriva daily Advair 500/50 twice a day Aspirin 81 mg daily She says her last colonoscopy was earlier this year. Past Medical History Cardiac Medical History: Reports: Congestive Heart Failure, Coronary Artery Disease, Myocardial Infarction, Hypertension Pulmonary Medical History: Reports: Asthma, Bronchitis, Chronic Obstructive Pulmonary Disease (COPD) - 2 L nasal home oxygen, Pneumonia, Respiratory Failure - Chronic respiratory failure Neurological Medical History: Denies: Seizures Endocrine Medical History: Reports: Diabetes Mellitus Type 2, Hypothyroidism Denies: Hyperthyroidism Renal/ Medical History: Denies: End Stage Renal Disease GI Medical History: Reports: Gastroesophageal Reflux Disease Musculoskeltal Medical History: Reports: Arthritis Psychiatric Medical History: Reports: Dementia, Depression Hematology: Reports: Anemia, Bleeding Tendencies Infectious Medical History: Reports: Clostridium Difficile Past Surgical History Past Surgical History: Reports: Cholecystectomy, Orthopedic Surgery - Foot surgery, Other - cataract bilateral Social History Information Source: Patient Lives with: Family Smoking Status: Former Smoker Frequency of Alcohol Use: None Hx Recreational Drug Use: No Drugs: None Hx Prescription Drug Abuse: No Family History Family History: COPD, Malignancy - Lung cancer Parental Family History Reviewed: Yes Children Family History Reviewed: Yes Sibling(s) Family History Reviewed.: Yes Medication/Allergy Home Medications: Glimepiride [Amaryl 1 mg Tablet] 1 mg PO DAILY 11/21/17 Levothyroxine Sodium [Synthroid 0.088 mg Tablet] 0.088 mg PO DAILY 11/21/17 Oxycodone HCl/Acetaminophen [Percocet 5-325 mg Tablet] 1 tab PO Q12 11/21/17 Pantoprazole Sodium [Protonix] 40 mg PO DAILY 11/21/17 Tramadol HCl [Ultram 50 mg Tablet] 50 mg PO DAILYP PRN 11/21/17 Ascorbic Acid [Vitamin C 500 mg Tablet] 500 mg PO BIDPCBS #60 tablet 11/24/17 Ferrous Sulfate [Albafort] 325 mg PO BIDPCBS #60 tablet 11/24/17 Ipratropium/Albuterol Sulfate [Duoneb 3 ml Ampul] 3 ml [facility] [id number] #120 [email or web address] 11/24/17 Levalbuterol HCl [Levalbuterol Concentrate] 1.25 mg NEB Q4HP PRN #90 [email or web address] Tiotropium [place] [Spiriva Handihaler 5 Cap/Kit (18 Mcg/Cap)] 1 puff IH DAILY # 30 dose 11/24/17 Albuterol Sulfate [Proair HFA Inhalation Aerosol 8.5 gm MDI] 2 puff IH Q4H PRN 11/28/17 Bifidobacterium Infantis [Align 4 mg Capsule] 4 mg PO BID #28 11/30/17 Carvedilol [Coreg 6.25 mg Tablet] 6.25 mg PO Q12 #60 tablet 11/30/17 Furosemide [Lasix 40 mg Tablet] 40 mg PO BID #60 tablet 11/30/17 Lisinopril [Prinivil 5 mg Tablet] 2.5 mg PO DAILY #0 11/30/17 Metformin HCl [Metformin HCl ER] 250 mg PO BID #0 11/30/17 Vancomycin HCl [Vancocin HCl] 125 mg PO Q6H #16 capsule 11/30/17 Albuterol Sulfate [Albuterol Sulfate 2.5mg/3 mL] 1 vial IH Q4 PRN #30 vial 12/03 Nitrofurantoin/Nitrofuran Mac [Macrobid 100 mg Capsule] 1 tab PO BID #20 capsule 12/09/17 Allergies/Adverse Reactions: azithromycin Allergy (Verified 11/13/17 06:50) amoxicillin [Amoxicillin] Adverse Reaction (Verified 11/13/17 06:50) visual hallucinations erythromycin base [Erythromycin Base] Adverse Reaction (Verified 11/13/17 06:50) visual hallucinations Potassium Clavulanate * [From Augmentin] Adverse Reaction (Verified 11/13/17 06: 50) visual hallucinations Review of Systems Constitutional: PRESENT: chills. ABSENT: fever(s) Eyes: ABSENT: visual disturbances Ears: ABSENT: hearing changes Nose, Mouth, and Throat: PRESENT: sore throat Cardiovascular: ABSENT: orthropnea, palpitations Respiratory: PRESENT: cough, dyspnea, sputum Gastrointestinal: PRESENT: heartburn. ABSENT: abdominal pain, coffee ground emesis, hematochezia, melena, vomiting Genitourinary: PRESENT: dysuria Musculoskeletal: ABSENT: joint swelling Integumentary: ABSENT: rash Neurological: ABSENT: focal weakness Psychiatric: ABSENT: hallucinations Endocrine: PRESENT: heat intolerance Hematologic/Lymphatic: ABSENT: easy bleeding Physical Exam Vital Signs: Temp Pulse Resp BP Pulse Ox 98.3 F 110 H 18 97/63 L 100 12/10/17 15:24 12/10/17 15:24 12/10/17 18:02 12/10/17 18:02 12/10/17 18:02 Intake & Output 12/09/17 12/10/17 12/11/17 06:59 06:59 06:59 Weight 95.4 kg General appearance: PRESENT: obese Head exam: PRESENT: normocephalic Eye exam: PRESENT: PERRLA. ABSENT: scleral icterus Ear exam: PRESENT: normal external ear exam Mouth exam: PRESENT: moist Neck exam: ABSENT: tracheal deviation Respiratory exam: PRESENT: symmetrical, wheezes Cardiovascular exam: PRESENT: RRR GI/Abdominal exam: PRESENT: normal bowel sounds, soft. ABSENT: tenderness Rectal exam: PRESENT: deferred Extremities exam: PRESENT: pedal edema Musculoskeletal exam: PRESENT: normal inspection Neurological exam: PRESENT: alert, awake, oriented to person, oriented to place , oriented to time, oriented to situation Psychiatric exam: PRESENT: appropriate affect Skin exam: ABSENT: petechiae Results Laboratory Results: 12/10/17 16:23 12/10/17 16:23 12/10/17 12/10/17 12/10/17 16:23 16:23 16:23 WBC 5.8 RBC 2.52 L Hgb 8.2 L Hct 24.2 L MCV 96 MCH 32.7 MCHC 34.0 RDW 16.7 H Plt Count 210 Seg Neutrophils % 79.8 H Lymphocytes % 9.7 L Monocytes % 9.9 Eosinophils % 0.5 Basophils % 0.1 Absolute Neutrophils 4.6 Absolute Lymphocytes 0.6 Absolute Monocytes 0.6 Absolute Eosinophils 0.0 Absolute Basophils 0.0 Sodium 141.5 Potassium 3.8 Chloride 96 L Carbon Dioxide 39 H Anion Gap 7 BUN 17 Creatinine 0.97 Est GFR ( Amer) > 60 Est GFR (Non-Af Amer) 56 L Glucose 112 H Lactic Acid 2.0 Calcium 8.2 L Total Bilirubin < 0.1 L AST 17 ALT 32 Alkaline Phosphatase 55 Total Protein 4.8 L Albumin 2.8 L 12/10/17 12/10/17 16:23 16:23 Creatine Kinase < 20 L CK-MB (CK-2) 0.48 Troponin I < 0.012 Impressions: Chest X-Ray 12/10/17 16:10 IMPRESSION: No acute radiographic finding in the chest. Assessment & Plan - Diagnosis (1) COPD exacerbation Is this a current diagnosis for this admission?: Yes Plan: Oxygen, steroids, nebs, mucolytics, antibiotic, inhalers (2) Diabetes Qualifiers: Diabetes mellitus type: type 2 Is this a current diagnosis for this admission?: Yes (3) UTI (urinary tract infection) Is this a current diagnosis for this admission?: Yes Plan: Urine culture Continue Levaquin (4) Hypothyroid Is this a current diagnosis for this admission?: Yes Plan: Continue synthroid (5) Essential hypertension Is this a current diagnosis for this admission?: Yes Plan: BP running low normal Hold Lasix, Lisinopril, Start Coreg at lower dose with hold parameters IV fluids (6) Full code status Is this a current diagnosis for this admission?: Yes (7) GERD (gastroesophageal reflux disease) Qualifiers: Esophagitis presence: esophagitis presence not specified Qualified Code(s) : K21.9 - Gastro-esophageal reflux disease without esophagitis Is this a current diagnosis for this admission?: Yes Plan: PPI - Time Time Spent: 50 to 70 Minutes
[2017-12-10] MEDS ORDERED: GUAIFENESIN 600 MG TABLET.SA PO ONE (19:00)
[2017-12-10] MEDS ORDERED: METHYLPREDNISOLONE INJ 40 MG/1 ML SDV IV ONE (19:00)
[2017-12-10] MEDS: OXYCODONE-ACETAMINOPHEN 5-325 MG TABLET PO PRN (19:21)
[2017-12-10] MEDS: LEVALBUTEROL HCL NEB 0.63 MG/3 ML AMPUL NEB PRN (19:45)
[2017-12-10] MEDS: CARVEDILOL 3.125 MG TABLET PO SCH (21:33)
[2017-12-10] MEDS: LEVALBUTEROL HCL NEB 1.25 MG/3 ML AMPUL NEB SCH (21:33)
[2017-12-11] MEDS: METHYLPREDNISOLONE INJ 40 MG/1 ML SDV IV SCH ×3 (01:26→18:24)
[2017-12-11] MEDS ORDERED: LEVOTHYROXINE SODIUM 0.088 MG TABLET PO SCH (06:00)
[2017-12-11] MEDS ORDERED: LANSOPRAZOLE 15 MG TAB.RAP.DR PO SCH (06:00)
[2017-12-11 07:21] LABS: HEMATOCRIT 26.8 % (36.0-47.0); HEMOGLOBIN 9.2 g/dL (12.0-15.5); MEAN CORPUSCULAR HEMOGLOBIN 33.3 pg (27.0-33.4); MEAN CORPUSCULAR HGB CONC 34.1 g/dL (32.0-36.0); MEAN CORPUSCULAR VOLUME 98 fl (80-97); PLATELET COUNT 219 10^3/uL (150-450); RED BLOOD COUNT 2.75 10^6/uL (3.72-5.28); RED CELL DISTRIBUTION WIDTH 16.9 % (11.5-14.0); WHITE BLOOD COUNT 6.5 10^3/uL (4.0-10.5)
[2017-12-11 07:36] LABS: ALANINE AMINOTRANSFERASE 28 U/L (9-52); ALBUMIN 3.2 g/dL (3.5-5.0); ALKALINE PHOSPHATASE 52 U/L (38-126); ANION GAP 7 (5-19); ASPARTATE AMINO TRANSFERASE 20 U/L (14-36); BILIRUBIN,DIRECT 0.2 mg/dL (0.0-0.4); BILIRUBIN,TOTAL 0.2 mg/dL (0.2-1.3); BLOOD UREA NITROGEN 15 mg/dL (7-20); CALCIUM 8.4 mg/dL (8.4-10.2); CARBON DIOXIDE 36 mmol/L (22-30); CHLORIDE 99 mmol/L (98-107); GLUCOSE 176 mg/dL (75-110); PHOSPHORUS 3.7 mg/dL (2.5-4.5); POTASSIUM 4.5 mmol/L (3.6-5.0); SODIUM 141.9 mmol/L (137-145); TOTAL PROTEIN 5.4 g/dL (6.3-8.2)
[2017-12-11] MEDS: LEVALBUTEROL HCL NEB 1.25 MG/3 ML AMPUL NEB SCH ×4 (07:47→20:03)
[2017-12-11] MEDS ORDERED: MAGNESIUM SULFATE 4 GM/100 ML RTUPB IV ONE (10:00)
[2017-12-11] MEDS ORDERED: LEVOFLOXACIN 750 MG/D5W RTU 750 MG/150 ML RTUPB IV SCH (10:00)
[2017-12-11] MEDS ORDERED: GUAIFENESIN 600 MG TABLET.SA PO SCH (10:00)
[2017-12-11] MEDS: LACTOBACILLUS ACIDOPHILUS 250 MG TAB PO SCH ×2 (10:28→18:23)
[2017-12-11] MEDS: CARVEDILOL 3.125 MG TABLET PO SCH ×2 (10:29→22:48)
[2017-12-11] MEDS: TIOTROPIUM BROMIDE DPI 5 CAP/KIT (18 MCG/CAP) IH SCH (10:29)
[2017-12-11] MEDS: ASCORBIC ACID 500 MG TABLET PO SCH ×2 (10:30→18:24)
[2017-12-11] MEDS: MAGNESIUM OXIDE 400 MG TABLET PO SCH (10:31)
[2017-12-11] MEDS: ENOXAPARIN SODIUM INJ 40 MG/0.4 ML DISP.SYRIN SUBCUT SCH (10:33)
[2017-12-11] MEDS: INSULIN LISPRO 100 UNIT/ML 3 ML VIAL SUBCUT PRN ×3 (10:36→22:47)
[2017-12-11] MEDS ORDERED: ONDANSETRON HCL INJ/PF 4 MG/2 ML SDV IV PRN (12:00)
[2017-12-11] MEDS ORDERED: ONDANSETRON 4 MG TAB.RAPDIS PO PRN (12:00)
--- NOTE | 2017-12-11 12:05 | PDOC PROGRESS REPORT ---
Subjective Progress Note for:: 12/11/17 Subjective:: 72 yr old female with Diastolic CHF Lung cancer with metastatic disease to the brain Hypertension Hyperlipidemia Chronic back pain COPD on 2 L oxygen at home Obesity Recurrent C. difficile She presented to the hospital with COPD exacerbation and early sepsis due to UTI. Micro lab called me to say that urine culture from 12/09/17 was growing ESBL E coli. Levaquin will be switched to Meropenem. No complaints at present Reason For Visit: URINARY TRACT INFECTION,TACHYPNEA,HYPOTENSION, Physical Exam Vital Signs: Temp Pulse Resp BP Pulse Ox 98.3 F 111 H 18 117/65 95 12/11/17 07:33 12/11/17 07:47 12/11/17 07:47 12/11/17 07:33 12/11/17 07:47 Intake & Output 12/10/17 12/11/17 12/12/17 06:59 06:59 06:59 Intake Total 266 Balance 266 Weight 89.3 kg General appearance: PRESENT: obese Head exam: PRESENT: normocephalic Eye exam: ABSENT: scleral icterus Ear exam: PRESENT: normal external ear exam Mouth exam: PRESENT: moist Respiratory exam: PRESENT: symmetrical, wheezes. ABSENT: crackles Cardiovascular exam: PRESENT: RRR GI/Abdominal exam: PRESENT: normal bowel sounds Rectal exam: PRESENT: deferred Extremities exam: PRESENT: pedal edema Neurological exam: PRESENT: alert, awake, oriented to person, oriented to place Psychiatric exam: PRESENT: appropriate affect Skin exam: ABSENT: petechiae Results Laboratory Results: 12/11/17 05:48 12/11/17 05:48 12/11/17 12/11/17 12/11/17 05:48 05:48 05:48 WBC 6.5 RBC 2.75 L Hgb 9.2 L Hct 26.8 L MCV 98 H MCH 33.3 MCHC 34.1 RDW 16.9 H Plt Count 219 Sodium 141.9 Potassium 4.5 Chloride 99 Carbon Dioxide 36 H Anion Gap 7 BUN 15 Creatinine 0.85 Est GFR ( Amer) > 60 Est GFR (Non-Af Amer) > 60 Glucose 176 H Calcium 8.4 Phosphorus 3.7 Magnesium 1.4 L Total Bilirubin 0.2 AST 20 ALT 28 Alkaline Phosphatase 52 Total Protein 5.4 L Albumin 3.2 L TSH 1.01 Stool Occult Blood 12/11/17 07:30 WBC RBC Hgb Hct MCV MCH MCHC RDW Plt Count Sodium Potassium Chloride Carbon Dioxide Anion Gap BUN Creatinine Est GFR ( Amer) Est GFR (Non-Af Amer) Glucose Calcium Phosphorus Magnesium Total Bilirubin AST ALT Alkaline Phosphatase Total Protein Albumin TSH Stool Occult Blood Cancelled 12/11/17 05:48 NT-Pro-B Natriuret Pep 847 Impressions: Chest X-Ray 12/10/17 16:10 IMPRESSION: No acute radiographic finding in the chest. Assessment & Plan - Diagnosis (1) COPD exacerbation Is this a current diagnosis for this admission?: Yes (2) Diabetes Qualifiers: Diabetes mellitus type: type 2 Is this a current diagnosis for this admission?: Yes Plan: Insulin sliding scale (3) UTI (urinary tract infection) Qualifiers: Urinary tract infection type: site unspecified Hematuria presence: without hematuria Qualified Code(s): N39.0 - Urinary tract infection, site not specified Is this a current diagnosis for this admission?: Yes Plan: Urine culture growing ESBL E coli. Day 1 of Meropenem. (4) Hypothyroid Is this a current diagnosis for this admission?: Yes Plan: Continue synthroid (5) Essential hypertension Is this a current diagnosis for this admission?: Yes Plan: BP running low normal Hold Lasix, Lisinopril, Start Coreg at lower dose with hold parameters Continue gentle IV fluids, watch fluid status closely. (6) Full code status Is this a current diagnosis for this admission?: Yes (7) GERD (gastroesophageal reflux disease) Qualifiers: Esophagitis presence: esophagitis presence not specified Qualified Code(s) : K21.9 - Gastro-esophageal reflux disease without esophagitis Is this a current diagnosis for this admission?: Yes Plan: PPI - Time Time Spent with patient: 35 or more minutes
--- NOTE | 2017-12-11 14:30 | Physician Advisory Note ---
Physician Advisor ProgressNote .: Pursuant to the plan for [facility], I have reviewed the medical record for this patient. Physician Advisor Statement: Please consider documenting, if you agree: 1. "Chronic diastolic CHF" (H&P states CHF, ECHO 10/19/17 = grade II/IV diastolic dysfunction, nl EF) 2. likely cause(s) of hypotension: ?intravascular fluid depletion due to Lasix + BP meds + UTI, or ... 3. ? is there "Acute bronchitis" suspected, or only the UTI? Status: 72yo Medicare pt w/chronic diastolic CHF, CAD, HTN, Chr Resp FAilure on 2L O2, DM-2, SCLC w/brain mets, dementia, Fe defic anemia, presented w/COPD exac + untx'd UTI, tachycardia, hypotension, etc. IVF ordered despite CHF, so risks higher, needing close monitoring. Tachycardia persistent since arrival despite tx, tachypnea recurrent - not hemodynamically stable. Continuing to hold lisinopril & have lower dose/hold orders for Coreg, changing IV abx today to even broader spectrum, while continuing IV steroids with adjustments, . - Appropriate for Inpt status. CK
[2017-12-11] MEDS: MEROPENEM 1 GM in NORMAL SALINE 50 ML IV SCH ×2 (15:30→22:44)
[2017-12-11] MEDS ORDERED: METHYLPREDNISOLONE INJ 40 MG/1 ML SDV IV SCH (18:00)
[2017-12-11] MEDS: GUAIFENESIN 600 MG TABLET.SA PO SCH (22:48)
[2017-12-12] MEDS: METHYLPREDNISOLONE INJ 40 MG/1 ML SDV IV SCH ×3 (03:11→17:45)
[2017-12-12 05:11] LABS: HEMOGLOBIN 8.3 g/dL (12.0-15.5); MEAN CORPUSCULAR HGB CONC 34.5 g/dL (32.0-36.0); MEAN CORPUSCULAR VOLUME 96 fl (80-97); PLATELET COUNT 217 10^3/uL (150-450); RED BLOOD COUNT 2.51 10^6/uL (3.72-5.28); RED CELL DISTRIBUTION WIDTH 16.7 % (11.5-14.0); WHITE BLOOD COUNT 9.4 10^3/uL (4.0-10.5)
[2017-12-12] MEDS: MEROPENEM 1 GM in NORMAL SALINE 50 ML IV SCH ×3 (05:15→21:22)
[2017-12-12] MEDS: LEVOTHYROXINE SODIUM 0.088 MG TABLET PO SCH (05:16)
[2017-12-12] MEDS ORDERED: LANSOPRAZOLE 15 MG TAB.RAP.DR PO SCH (06:00)
[2017-12-12] MEDS: LEVALBUTEROL HCL NEB 1.25 MG/3 ML AMPUL NEB SCH ×4 (08:02→20:14)
[2017-12-12] MEDS: ASCORBIC ACID 500 MG TABLET PO SCH ×2 (11:04→17:45)
[2017-12-12] MEDS: LACTOBACILLUS ACIDOPHILUS 250 MG TAB PO SCH ×2 (11:04→17:45)
[2017-12-12] MEDS: MAGNESIUM OXIDE 400 MG TABLET PO SCH (11:04)
[2017-12-12] MEDS: CARVEDILOL 3.125 MG TABLET PO SCH (11:05)
[2017-12-12] MEDS: GUAIFENESIN 600 MG TABLET.SA PO SCH ×2 (11:05→21:23)
[2017-12-12] MEDS: TIOTROPIUM BROMIDE DPI 5 CAP/KIT (18 MCG/CAP) IH SCH (11:05)
[2017-12-12] MEDS: ENOXAPARIN SODIUM INJ 40 MG/0.4 ML DISP.SYRIN SUBCUT SCH (11:05)
[2017-12-12] MEDS: INSULIN LISPRO 100 UNIT/ML 3 ML VIAL SUBCUT PRN ×3 (12:43→21:21)
--- NOTE | 2017-12-12 18:26 | PDOC PROGRESS REPORT ---
Subjective Progress Note for:: 12/12/17 Subjective:: Patient is resting comfortably when examined lethargic arousable she appears in no distress, very comfortable No fever no chills Reason For Visit: URINARY TRACT INFECTION,TACHYPNEA,HYPOTENSION, Physical Exam Vital Signs: Temp Pulse Resp BP Pulse Ox 98.4 F 106 H 18 129/72 H 100 12/12/17 15:55 12/12/17 15:55 12/12/17 15:55 12/12/17 15:55 12/12/17 15:55 Intake & Output 12/11/17 12/12/17 12/13/17 00:59 00:59 00:59 Intake Total 2659 1716 Balance 2659 1716 Weight 89.3 kg 89.3 kg 89.7 kg General appearance: PRESENT: no acute distress, well-developed, well-nourished Head exam: PRESENT: atraumatic, normocephalic Eye exam: PRESENT: conjunctiva pink, EOMI, PERRLA. ABSENT: scleral icterus Ear exam: PRESENT: normal external ear exam Neck exam: ABSENT: carotid bruit, JVD, lymphadenopathy, thyromegaly Respiratory exam: PRESENT: wheezes - bilaterally. ABSENT: rales, rhonchi Cardiovascular exam: PRESENT: RRR. ABSENT: diastolic murmur, rubs, systolic murmur Pulses: PRESENT: normal dorsalis pedis pul GI/Abdominal exam: PRESENT: normal bowel sounds, soft. ABSENT: distended, guarding, mass, organolmegaly, rebound, tenderness Extremities exam: PRESENT: full ROM. ABSENT: calf tenderness, clubbing, pedal edema Neurological exam: PRESENT: CN II-XII grossly intact Results Laboratory Results: 12/12/17 05:00 12/11/17 05:48 12/12/17 05:00 WBC 9.4 RBC 2.51 L Hgb 8.3 L Hct 24.0 L MCV 96 MCH 33.0 MCHC 34.5 RDW 16.7 H Plt Count 217 12/11/17 05:48 NT-Pro-B Natriuret Pep 847 Impressions: Chest X-Ray 12/10/17 16:10 IMPRESSION: No acute radiographic finding in the chest. Assessment & Plan - Diagnosis (1) COPD (chronic obstructive pulmonary disease) Qualifiers: COPD type: unspecified COPD Qualified Code(s): J44.9 - Chronic obstructive pulmonary disease, unspecified Is this a current diagnosis for this admission?: Yes Plan: steroids, nebs (2) Tachycardia Is this a current diagnosis for this admission?: Yes Plan: still persistent IV fluids increase beta blockers (3) UTI (urinary tract infection) Qualifiers: Urinary tract infection type: site unspecified Hematuria presence: without hematuria Qualified Code(s): N39.0 - Urinary tract infection, site not specified Is this a current diagnosis for this admission?: Yes Plan: continue meropenem (4) Hypothyroid Is this a current diagnosis for this admission?: Yes (5) Lung cancer metastatic to brain Is this a current diagnosis for this admission?: Yes (6) Chronic diastolic CHF (congestive heart failure) Is this a current diagnosis for this admission?: Yes Plan: well compensated at this time continue IV fluids (7) Iron deficiency anemia Is this a current diagnosis for this admission?: Yes Plan: in September iron was extremely low and patient had positive blood in stools will recheck and replace as needed protonix IV (8) Lethargy Is this a current diagnosis for this admission?: Yes Plan: ? encephalopathy was more awake earlier check med list hold all sedatives stat ABG's - CT brain no contrast - Time Time Spent with patient: 25-34 minutes
[2017-12-12] MEDS ORDERED: METOPROLOL TARTRATE 25 MG TABLET PO ONE (19:30)
[2017-12-12] MEDS: NORMAL SALINE 1000 ML 1,000 ML IV PRN (21:23)
[2017-12-12] MEDS: OXYCODONE-ACETAMINOPHEN 5-325 MG TABLET PO PRN (21:23)
[2017-12-13] MEDS: LANSOPRAZOLE 30 MG TAB.RAP.DR PO SCH (05:54)
[2017-12-13] MEDS: MEROPENEM 1 GM in NORMAL SALINE 50 ML IV SCH ×3 (05:54→20:26)
[2017-12-13] MEDS: METOPROLOL TARTRATE 25 MG TABLET PO SCH ×2 (05:54→18:40)
[2017-12-13] MEDS: LEVOTHYROXINE SODIUM 0.088 MG TABLET PO SCH (05:54)
[2017-12-13] MEDS: METHYLPREDNISOLONE INJ 40 MG/1 ML SDV IV SCH ×3 (05:55→18:40)
[2017-12-13 06:19] LABS: HEMATOCRIT 25.4 % (36.0-47.0); HEMOGLOBIN 8.7 g/dL (12.0-15.5); MEAN CORPUSCULAR HEMOGLOBIN 33.3 pg (27.0-33.4); MEAN CORPUSCULAR HGB CONC 34.4 g/dL (32.0-36.0); MEAN CORPUSCULAR VOLUME 97 fl (80-97); PLATELET COUNT 209 10^3/uL (150-450); RED BLOOD COUNT 2.62 10^6/uL (3.72-5.28); RED CELL DISTRIBUTION WIDTH 16.9 % (11.5-14.0); WHITE BLOOD COUNT 9.4 10^3/uL (4.0-10.5)
[2017-12-13] MEDS: LEVALBUTEROL HCL NEB 0.63 MG/3 ML AMPUL NEB PRN ×2 (06:20→23:51)
[2017-12-13 06:39] LABS: IRON(TIBC) 89.2 ug/dL (37-170)
[2017-12-13] MEDS: LEVALBUTEROL HCL NEB 1.25 MG/3 ML AMPUL NEB SCH ×4 (08:35→19:56)
--- NOTE | 2017-12-13 08:41 | RADIOLOGY REPORT (SQ) ---
EXAM DESCRIPTION: CHEST SINGLE VIEW COMPLETED DATE/TIME: 12/13/2017 7:49 am REASON FOR STUDY: SOB COMPARISON: CT chest 11/28/2017 Chest films 11/13/2017, 12/02/2017, 12/09/2017, 12/10/2017 EXAM PARAMETERS: NUMBER OF VIEWS: One view. TECHNIQUE: Single frontal radiographic view of the chest acquired. RADIATION DOSE: NA LIMITATIONS: None. FINDINGS: LUNGS AND PLEURA: Post therapeutic changes right perihilar region from old radiation thera py. Remainder of the lungs are grossly clear. No pleural effusion. No pneumothorax. MEDIASTINUM AND HILAR STRUCTURES: Postradiation change right hilum. Left hilum, mediastinum unremark able HEART AND VASCULAR STRUCTURES: Heart normal in size. Normal vasculature. BONES: No acute findings. HARDWARE: None in the chest. OTHER: No other significant finding. IMPRESSION: NO ACUTE RADIOGRAPHIC FINDING IN THE CHEST. TECHNICAL DOCUMENTATION: JOB ID: [id number] [employer]- All Rights Reserved Reading location - IP/workstation name: [email or web address]
[2017-12-13] MEDS: TIOTROPIUM BROMIDE DPI 5 CAP/KIT (18 MCG/CAP) IH SCH (09:00)
[2017-12-13] MEDS: MAGNESIUM OXIDE 400 MG TABLET PO SCH (09:00)
[2017-12-13] MEDS: LACTOBACILLUS ACIDOPHILUS 250 MG TAB PO SCH ×2 (09:01→18:40)
[2017-12-13] MEDS: LISINOPRIL 5 MG TABLET PO SCH (09:01)
[2017-12-13] MEDS: GUAIFENESIN 600 MG TABLET.SA PO SCH ×2 (09:01→20:26)
[2017-12-13] MEDS: ASCORBIC ACID 500 MG TABLET PO SCH ×2 (09:01→18:40)
[2017-12-13] MEDS: ENOXAPARIN SODIUM INJ 40 MG/0.4 ML DISP.SYRIN SUBCUT SCH (09:02)
--- NOTE | 2017-12-13 12:44 | PDOC PROGRESS REPORT ---
Subjective Progress Note for:: 12/13/17 Subjective:: Patient is resting comfortably when examined lethargic arousable she appears in no distress, very comfortable No fever no chills 12/13 alert awake appears very comfortable complaining of intermittent suprapubic pain Reason For Visit: URINARY TRACT INFECTION,TACHYPNEA,HYPOTENSION, Physical Exam Vital Signs: Temp Pulse Resp BP Pulse Ox 98.4 F 81 20 131/79 H 96 12/13/17 11:20 12/13/17 11:52 12/13/17 11:52 12/13/17 11:20 12/13/17 11:52 Intake & Output 12/12/17 12/13/17 12/14/17 00:59 00:59 00:59 Intake Total 2659 2556 1720 Balance 2659 2556 1720 Weight 89.3 kg 89.7 kg 97.4 kg General appearance: PRESENT: no acute distress, well-developed, well-nourished Head exam: PRESENT: atraumatic, normocephalic Eye exam: PRESENT: conjunctiva pink, EOMI, PERRLA. ABSENT: scleral icterus Ear exam: PRESENT: normal external ear exam Neck exam: ABSENT: carotid bruit, JVD, lymphadenopathy, thyromegaly Respiratory exam: PRESENT: wheezes - bilaterally. ABSENT: rales, rhonchi Cardiovascular exam: PRESENT: RRR. ABSENT: diastolic murmur, rubs, systolic murmur Pulses: PRESENT: normal dorsalis pedis pul GI/Abdominal exam: PRESENT: normal bowel sounds, soft. ABSENT: distended, guarding, mass, organolmegaly, rebound, tenderness Extremities exam: PRESENT: full ROM. ABSENT: calf tenderness, clubbing, pedal edema Neurological exam: PRESENT: CN II-XII grossly intact Results Laboratory Results: 12/13/17 05:23 12/11/17 05:48 12/13/17 12/13/17 05:23 05:23 WBC 9.4 RBC 2.62 L Hgb 8.7 L Hct 25.4 L MCV 97 MCH 33.3 MCHC 34.4 RDW 16.9 H Plt Count 209 Iron 89.2 TIBC 246 L % Saturation 36 Ferritin 481.00 H 12/11/17 05:48 NT-Pro-B Natriuret Pep 847 Impressions: Chest X-Ray 12/13/17 08:00 IMPRESSION: NO ACUTE RADIOGRAPHIC FINDING IN THE CHEST. Assessment & Plan - Diagnosis (1) COPD (chronic obstructive pulmonary disease) Qualifiers: COPD type: unspecified COPD Qualified Code(s): J44.9 - Chronic obstructive pulmonary disease, unspecified Is this a current diagnosis for this admission?: Yes (2) Tachycardia Is this a current diagnosis for this admission?: Yes (3) UTI (urinary tract infection) Qualifiers: Urinary tract infection type: site unspecified Hematuria presence: without hematuria Qualified Code(s): N39.0 - Urinary tract infection, site not specified Is this a current diagnosis for this admission?: Yes Plan: continue meropenem E Coli ESBL infection Treatment with Meropenem initiated on 12/11 will be completed on 12/18 will keep patient till treatment is completed intermittent suprapubic pains will obtain a bladder scan after voiding to evaluate for residual urine (4) Hypothyroid Is this a current diagnosis for this admission?: Yes (5) Lung cancer metastatic to brain Is this a current diagnosis for this admission?: Yes (6) Chronic diastolic CHF (congestive heart failure) Is this a current diagnosis for this admission?: Yes (7) Lethargy Is this a current diagnosis for this admission?: Yes Plan: improved today (8) Anemia Qualifiers: Anemia type: unspecified type Qualified Code(s): D64.9 - Anemia, unspecified Is this a current diagnosis for this admission?: Yes Plan: likely anemia of chronic disease iron studies normal - Time Time Spent with patient: continue present management Time Spent with patient: 25-34 minutes
[2017-12-13] MEDS: NORMAL SALINE 1000 ML 1,000 ML IV PRN (16:25)
[2017-12-13] MEDS: INSULIN LISPRO 100 UNIT/ML 3 ML VIAL SUBCUT PRN ×2 (16:42→20:27)
[2017-12-13] MEDS: OXYCODONE-ACETAMINOPHEN 5-325 MG TABLET PO PRN (20:26)
[2017-12-14] MEDS: METHYLPREDNISOLONE INJ 40 MG/1 ML SDV IV SCH ×3 (05:28→17:49)
[2017-12-14] MEDS: LEVOTHYROXINE SODIUM 0.088 MG TABLET PO SCH (05:29)
[2017-12-14] MEDS: MEROPENEM 1 GM in NORMAL SALINE 50 ML IV SCH ×3 (05:29→21:40)
[2017-12-14] MEDS: LANSOPRAZOLE 30 MG TAB.RAP.DR PO SCH (05:29)
[2017-12-14] MEDS: METOPROLOL TARTRATE 25 MG TABLET PO SCH ×2 (05:29→17:48)
[2017-12-14] MEDS: LEVALBUTEROL HCL NEB 0.63 MG/3 ML AMPUL NEB PRN ×2 (05:49→09:10)
[2017-12-14] MEDS: LEVALBUTEROL HCL NEB 1.25 MG/3 ML AMPUL NEB SCH ×4 (08:25→20:00)
[2017-12-14] MEDS: NORMAL SALINE 1000 ML 1,000 ML IV PRN (09:39)
[2017-12-14] MEDS: TIOTROPIUM BROMIDE DPI 5 CAP/KIT (18 MCG/CAP) IH SCH (09:40)
[2017-12-14] MEDS: LACTOBACILLUS ACIDOPHILUS 250 MG TAB PO SCH ×2 (09:40→17:48)
[2017-12-14] MEDS: MAGNESIUM OXIDE 400 MG TABLET PO SCH (09:41)
[2017-12-14] MEDS: ASCORBIC ACID 500 MG TABLET PO SCH ×2 (09:41→17:49)
[2017-12-14] MEDS: LISINOPRIL 5 MG TABLET PO SCH (09:41)
[2017-12-14] MEDS: GUAIFENESIN 600 MG TABLET.SA PO SCH ×2 (09:41→21:40)
[2017-12-14] MEDS: ENOXAPARIN SODIUM INJ 40 MG/0.4 ML DISP.SYRIN SUBCUT SCH (09:42)
[2017-12-14] MEDS ORDERED: FUROSEMIDE INJ/PF 20 MG/2 ML SDV IV ONE (13:30)
[2017-12-14] MEDS: INSULIN LISPRO 100 UNIT/ML 3 ML VIAL SUBCUT PRN ×2 (17:50→21:42)
--- NOTE | 2017-12-14 18:51 | PDOC PROGRESS REPORT ---
Subjective Progress Note for:: 12/14/17 Subjective:: Patient is resting comfortably when examined lethargic arousable she appears in no distress, very comfortable No fever no chills 12/13 alert awake appears very comfortable complaining of intermittent suprapubic pain 12/14 patient feels well She is complaining of some wheezing; no chest pain; no fever no chills Reason For Visit: URINARY TRACT INFECTION,TACHYPNEA,HYPOTENSION, Physical Exam Vital Signs: Temp Pulse Resp BP Pulse Ox 99.1 F 91 24 H 142/74 H 98 12/14/17 16:01 12/14/17 16:01 12/14/17 16:01 12/14/17 16:01 12/14/17 16:01 Intake & Output 12/13/17 12/14/17 12/15/17 00:59 00:59 00:59 Intake Total 2556 3823 2353 Balance 2556 3823 2353 Weight 89.7 kg 97.4 kg 99.6 kg General appearance: PRESENT: no acute distress, cooperative, obese Head exam: PRESENT: atraumatic, normocephalic Eye exam: PRESENT: conjunctiva pink, EOMI, PERRLA. ABSENT: scleral icterus Neck exam: ABSENT: carotid bruit, JVD, lymphadenopathy, thyromegaly Respiratory exam: PRESENT: wheezes - Bilaterally. ABSENT: accessory muscle use Cardiovascular exam: PRESENT: RRR. ABSENT: diastolic murmur, rubs, systolic murmur GI/Abdominal exam: PRESENT: normal bowel sounds, soft. ABSENT: distended, guarding, mass, organolmegaly, rebound, tenderness Extremities exam: PRESENT: full ROM. ABSENT: calf tenderness, clubbing, pedal edema Neurological exam: PRESENT: alert, awake, CN II-XII grossly intact Results Laboratory Results: 12/13/17 05:23 12/11/17 05:48 12/11/17 05:48 NT-Pro-B Natriuret Pep 847 Impressions: Chest X-Ray 12/13/17 08:00 IMPRESSION: NO ACUTE RADIOGRAPHIC FINDING IN THE CHEST. Assessment & Plan - Diagnosis (1) COPD (chronic obstructive pulmonary disease) Qualifiers: COPD type: unspecified COPD Qualified Code(s): J44.9 - Chronic obstructive pulmonary disease, unspecified Is this a current diagnosis for this admission?: Yes (2) Tachycardia Is this a current diagnosis for this admission?: Yes (3) UTI (urinary tract infection) Qualifiers: Urinary tract infection type: site unspecified Hematuria presence: without hematuria Qualified Code(s): N39.0 - Urinary tract infection, site not specified Is this a current diagnosis for this admission?: Yes Plan: continue meropenem E Coli ESBL infection Treatment with Meropenem initiated on 12/11 will be completed on 12/18 will keep patient till treatment is completed intermittent suprapubic pains will obtain a bladder scan after voiding to evaluate for residual urine 12/14 CT abdomen and pelvis was essentially negative (4) Hypothyroid Is this a current diagnosis for this admission?: Yes (5) Lung cancer metastatic to brain Is this a current diagnosis for this admission?: Yes (6) Chronic diastolic CHF (congestive heart failure) Is this a current diagnosis for this admission?: Yes (7) Lethargy Is this a current diagnosis for this admission?: Yes (8) Anemia Qualifiers: Anemia type: unspecified type Qualified Code(s): D64.9 - Anemia, unspecified Is this a current diagnosis for this admission?: Yes Plan: likely anemia of chronic disease iron studies normal - Time Time Spent with patient: Continue the same management Patient appears to be somewhat fluid overloaded as she has wheezes bilaterally We will give her 20 mg of Lasix IV and discontinue IV fluids Time Spent with patient: 15-24 minutes
[2017-12-14] MEDS: OXYCODONE-ACETAMINOPHEN 5-325 MG TABLET PO PRN (21:40)
[2017-12-15] MEDS: LEVALBUTEROL HCL NEB 0.63 MG/3 ML AMPUL NEB PRN (03:44)
[2017-12-15] MEDS: MEROPENEM 1 GM in NORMAL SALINE 50 ML IV SCH ×3 (06:41→22:14)
[2017-12-15] MEDS: LEVOTHYROXINE SODIUM 0.088 MG TABLET PO SCH (06:41)
[2017-12-15] MEDS: METOPROLOL TARTRATE 25 MG TABLET PO SCH ×2 (06:41→17:20)
[2017-12-15] MEDS: METHYLPREDNISOLONE INJ 40 MG/1 ML SDV IV SCH ×3 (06:41→17:20)
[2017-12-15] MEDS: LANSOPRAZOLE 30 MG TAB.RAP.DR PO SCH (06:41)
[2017-12-15] MEDS: LEVALBUTEROL HCL NEB 1.25 MG/3 ML AMPUL NEB SCH ×4 (08:56→20:10)
[2017-12-15] MEDS: GUAIFENESIN 600 MG TABLET.SA PO SCH ×2 (11:01→22:09)
[2017-12-15] MEDS: MAGNESIUM OXIDE 400 MG TABLET PO SCH (11:01)
[2017-12-15] MEDS: ASCORBIC ACID 500 MG TABLET PO SCH ×2 (11:01→17:20)
[2017-12-15] MEDS: LISINOPRIL 5 MG TABLET PO SCH (11:01)
[2017-12-15] MEDS: LACTOBACILLUS ACIDOPHILUS 250 MG TAB PO SCH ×2 (11:02→17:20)
[2017-12-15] MEDS: ENOXAPARIN SODIUM INJ 40 MG/0.4 ML DISP.SYRIN SUBCUT SCH (11:03)
[2017-12-15] MEDS: TIOTROPIUM BROMIDE DPI 5 CAP/KIT (18 MCG/CAP) IH SCH (11:03)
[2017-12-15] MEDS: INSULIN LISPRO 100 UNIT/ML 3 ML VIAL SUBCUT PRN ×2 (16:40→22:08)
[2017-12-15] MEDS: OXYCODONE-ACETAMINOPHEN 5-325 MG TABLET PO PRN (22:09)
[2017-12-16] MEDS: LANSOPRAZOLE 30 MG TAB.RAP.DR PO SCH (06:14)
[2017-12-16] MEDS: LEVOTHYROXINE SODIUM 0.088 MG TABLET PO SCH (06:14)
[2017-12-16] MEDS: METOPROLOL TARTRATE 25 MG TABLET PO SCH ×2 (06:14→17:39)
[2017-12-16] MEDS: MEROPENEM 1 GM in NORMAL SALINE 50 ML IV SCH ×3 (06:14→22:36)
[2017-12-16] MEDS: METHYLPREDNISOLONE INJ 40 MG/1 ML SDV IV SCH ×2 (06:15→09:26)
--- NOTE | 2017-12-16 06:52 | PDOC PROGRESS REPORT ---
Subjective Progress Note for:: 12/15/17 Subjective:: Patient is resting comfortably when examined lethargic arousable she appears in no distress, very comfortable No fever no chills 12/13 alert awake appears very comfortable complaining of intermittent suprapubic pain 12/14 patient feels well She is complaining of some wheezing; no chest pain; no fever no chills 12/15 no complaints Reason For Visit: URINARY TRACT INFECTION,TACHYPNEA,HYPOTENSION, Physical Exam Vital Signs: Temp Pulse Resp BP Pulse Ox 97.8 F 86 18 128/65 H 97 12/15/17 20:00 12/16/17 02:00 12/15/17 20:10 12/15/17 20:00 12/16/17 00:54 Intake & Output 12/15/17 12/16/17 12/17/17 00:59 00:59 00:59 Intake Total 7372 4253 50 Balance 7372 4253 50 Weight 99.6 kg 98.9 kg General appearance: PRESENT: no acute distress, cooperative, obese Head exam: PRESENT: atraumatic, normocephalic Eye exam: PRESENT: conjunctiva pink, EOMI, PERRLA. ABSENT: scleral icterus Neck exam: ABSENT: carotid bruit, JVD, lymphadenopathy, thyromegaly Respiratory exam: PRESENT: wheezes - Bilaterally. ABSENT: accessory muscle use Cardiovascular exam: PRESENT: RRR. ABSENT: diastolic murmur, rubs, systolic murmur GI/Abdominal exam: PRESENT: normal bowel sounds, soft. ABSENT: distended, guarding, mass, organolmegaly, rebound, tenderness Extremities exam: PRESENT: full ROM. ABSENT: calf tenderness, clubbing, pedal edema Neurological exam: PRESENT: alert, awake, CN II-XII grossly intact Results Laboratory Results: 12/13/17 05:23 12/11/17 05:48 12/11/17 05:48 NT-Pro-B Natriuret Pep 847 Impressions: Chest X-Ray 12/13/17 08:00 IMPRESSION: NO ACUTE RADIOGRAPHIC FINDING IN THE CHEST. Assessment & Plan - Diagnosis (1) COPD (chronic obstructive pulmonary disease) Qualifiers: COPD type: unspecified COPD Qualified Code(s): J44.9 - Chronic obstructive pulmonary disease, unspecified Is this a current diagnosis for this admission?: Yes Plan: steroids, nebs stable (2) Tachycardia Is this a current diagnosis for this admission?: Yes (3) UTI (urinary tract infection) Qualifiers: Urinary tract infection type: site unspecified Hematuria presence: without hematuria Qualified Code(s): N39.0 - Urinary tract infection, site not specified Is this a current diagnosis for this admission?: Yes Plan: continue meropenem E Coli ESBL infection Treatment with Meropenem initiated on 12/11 will be completed on 12/18 will keep patient till treatment is completed intermittent suprapubic pains will obtain a bladder scan after voiding to evaluate for residual urine 12/14 CT abdomen and pelvis was essentially negative 12/15 continue Meropenem until 12/18 (4) Hypothyroid Is this a current diagnosis for this admission?: Yes (5) Lethargy Is this a current diagnosis for this admission?: Yes Plan: improved today CT brain was normal (6) Anemia Qualifiers: Anemia type: unspecified type Qualified Code(s): D64.9 - Anemia, unspecified Is this a current diagnosis for this admission?: Yes (7) Chronic diastolic CHF (congestive heart failure) Is this a current diagnosis for this admission?: Yes Plan: well compensated at this time continue IV fluids - Time Time Spent with patient: discharge on 12/19 if stable Time Spent with patient: 25-34 minutes
[2017-12-16] MEDS: LEVALBUTEROL HCL NEB 1.25 MG/3 ML AMPUL NEB SCH ×4 (08:28→20:01)
[2017-12-16] MEDS ORDERED: TRAMADOL HCL 50 MG TABLET PO PRN (09:21)
[2017-12-16] MEDS: ASCORBIC ACID 500 MG TABLET PO SCH ×2 (09:23→17:38)
[2017-12-16] MEDS: LACTOBACILLUS ACIDOPHILUS 250 MG TAB PO SCH ×2 (09:24→17:38)
[2017-12-16] MEDS: MAGNESIUM OXIDE 400 MG TABLET PO SCH (09:25)
[2017-12-16] MEDS: GUAIFENESIN 600 MG TABLET.SA PO SCH ×2 (09:25→22:36)
[2017-12-16] MEDS: ENOXAPARIN SODIUM INJ 40 MG/0.4 ML DISP.SYRIN SUBCUT SCH (09:28)
[2017-12-16] MEDS: OXYCODONE-ACETAMINOPHEN 5-325 MG TABLET PO PRN ×2 (11:02→17:38)
[2017-12-16] MEDS: FERROUS SULFATE 325 MG TABLET PO SCH (11:03)
[2017-12-16] MEDS: LISINOPRIL 5 MG TABLET PO SCH (11:03)
[2017-12-16] MEDS: TIOTROPIUM BROMIDE DPI 5 CAP/KIT (18 MCG/CAP) IH SCH (11:04)
--- NOTE | 2017-12-16 17:04 | PDOC PROGRESS REPORT ---
Subjective Progress Note for:: 12/16/17 Subjective:: 72 yr old female with Diastolic CHF Lung cancer with metastatic disease to the brain Hypertension Hyperlipidemia Chronic back pain COPD on 2 L oxygen at home Obesity Recurrent C. difficile She presented to the hospital with COPD exacerbation and early sepsis due to UTI. Micro lab called me to say that urine culture from 12/09/17 was growing ESBL E coli. On a course of Meropenem till 12/18/17. Constipated. Appetite is fair. Reason For Visit: URINARY TRACT INFECTION,TACHYPNEA,HYPOTENSION, Physical Exam Vital Signs: Temp Pulse Resp BP Pulse Ox 98.5 F 94 22 H 128/69 H 97 12/16/17 16:00 12/16/17 16:00 12/16/17 16:00 12/16/17 16:00 12/16/17 16:00 Intake & Output 12/15/17 12/16/17 12/17/17 06:59 06:59 06:59 Intake Total 7181 3181 100 Balance 7181 3181 100 Weight 98.9 kg 98.9 kg General appearance: PRESENT: obese Head exam: PRESENT: normocephalic Eye exam: ABSENT: scleral icterus Ear exam: PRESENT: normal external ear exam Mouth exam: PRESENT: moist Neck exam: ABSENT: tracheal deviation Respiratory exam: PRESENT: symmetrical, unlabored Cardiovascular exam: PRESENT: RRR GI/Abdominal exam: PRESENT: normal bowel sounds, soft. ABSENT: tenderness Gentrourinary exam: ABSENT: indwelling catheter Extremities exam: ABSENT: pedal edema Neurological exam: PRESENT: alert, awake, oriented to person Psychiatric exam: PRESENT: appropriate affect Results Laboratory Results: 12/13/17 05:23 12/11/17 05:48 12/11/17 05:48 NT-Pro-B Natriuret Pep 847 Impressions: Chest X-Ray 12/13/17 08:00 IMPRESSION: NO ACUTE RADIOGRAPHIC FINDING IN THE CHEST. Assessment & Plan - Diagnosis (1) COPD exacerbation Is this a current diagnosis for this admission?: Yes Plan: Improving. Continue Oxygen, taper steroids, nebs, mucolytics, antibiotic, inhalers (2) Diabetes Qualifiers: Diabetes mellitus type: type 2 Is this a current diagnosis for this admission?: Yes Plan: Insulin sliding scale (3) UTI (urinary tract infection) Qualifiers: Urinary tract infection type: site unspecified Hematuria presence: without hematuria Qualified Code(s): N39.0 - Urinary tract infection, site not specified Is this a current diagnosis for this admission?: Yes Plan: Urine culture growing ESBL E coli. last day of Meropenem is 12/18. (4) Hypothyroid Is this a current diagnosis for this admission?: Yes Plan: Continue synthroid (5) Essential hypertension Is this a current diagnosis for this admission?: Yes Plan: Continue Lisinopril and Metoprolol (6) Full code status Is this a current diagnosis for this admission?: Yes (7) GERD (gastroesophageal reflux disease) Qualifiers: Esophagitis presence: esophagitis presence not specified Qualified Code(s) : K21.9 - Gastro-esophageal reflux disease without esophagitis Is this a current diagnosis for this admission?: Yes Plan: PPI - Time Time Spent with patient: 35 or more minutes
[2017-12-16] MEDS: LACTULOSE SYRUP 20 GM/30 ML UDCUP PO SCH (17:38)
[2017-12-16] MEDS: INSULIN LISPRO 100 UNIT/ML 3 ML VIAL SUBCUT PRN ×2 (17:38→22:36)
[2017-12-17] MEDS: LANSOPRAZOLE 30 MG TAB.RAP.DR PO SCH (06:24)
[2017-12-17] MEDS: MEROPENEM 1 GM in NORMAL SALINE 50 ML IV SCH ×3 (06:24→22:48)
[2017-12-17] MEDS: LEVOTHYROXINE SODIUM 0.088 MG TABLET PO SCH (06:24)
[2017-12-17] MEDS: METOPROLOL TARTRATE 25 MG TABLET PO SCH ×2 (06:24→18:12)
[2017-12-17 06:56] LABS: ALANINE AMINOTRANSFERASE 37 U/L (9-52); ALBUMIN 2.8 g/dL (3.5-5.0); ALKALINE PHOSPHATASE 50 U/L (38-126); ANION GAP 7 (5-19); ASPARTATE AMINO TRANSFERASE 19 U/L (14-36); BILIRUBIN,DIRECT 0.1 mg/dL (0.0-0.4); BILIRUBIN,TOTAL 0.1 mg/dL (0.2-1.3); BLOOD UREA NITROGEN 27 mg/dL (7-20); CARBON DIOXIDE 31 mmol/L (22-30); CHLORIDE 107 mmol/L (98-107); GLUCOSE 70 mg/dL (75-110); PHOSPHORUS 3.1 mg/dL (2.5-4.5); POTASSIUM 4.1 mmol/L (3.6-5.0); TOTAL PROTEIN 4.9 g/dL (6.3-8.2)
[2017-12-17] MEDS: LEVALBUTEROL HCL NEB 0.63 MG/3 ML AMPUL NEB PRN ×3 (09:13→20:12)
[2017-12-17] MEDS: LISINOPRIL 5 MG TABLET PO SCH (11:02)
[2017-12-17] MEDS: GUAIFENESIN 600 MG TABLET.SA PO SCH ×2 (11:02→22:48)
[2017-12-17] MEDS: FERROUS SULFATE 325 MG TABLET PO SCH (11:03)
[2017-12-17] MEDS: PREDNISONE 20 MG TABLET PO SCH (11:03)
[2017-12-17] MEDS: ASCORBIC ACID 500 MG TABLET PO SCH ×2 (11:03→18:11)
[2017-12-17] MEDS: LACTOBACILLUS ACIDOPHILUS 250 MG TAB PO SCH ×2 (11:03→18:11)
[2017-12-17] MEDS: MAGNESIUM OXIDE 400 MG TABLET PO SCH (11:04)
[2017-12-17] MEDS: LACTULOSE SYRUP 20 GM/30 ML UDCUP PO SCH ×2 (11:04→18:17)
[2017-12-17] MEDS: TIOTROPIUM BROMIDE DPI 5 CAP/KIT (18 MCG/CAP) IH SCH (11:08)
[2017-12-17] MEDS: ENOXAPARIN SODIUM INJ 40 MG/0.4 ML DISP.SYRIN SUBCUT SCH (11:09)
--- NOTE | 2017-12-17 12:29 | PDOC PROGRESS REPORT ---
Subjective Progress Note for:: 12/17/17 Subjective:: 72 yr old female with Diastolic CHF Lung cancer with metastatic disease to the brain Hypertension Hyperlipidemia Chronic back pain COPD on 2 L oxygen at home Obesity Recurrent C. difficile She presented to the hospital with COPD exacerbation and early sepsis due to UTI. Micro lab called me to say that urine culture from 12/09/17 was growing ESBL E coli- she is on Meropenem till 12/18/17. No complaints. Reason For Visit: URINARY TRACT INFECTION,TACHYPNEA,HYPOTENSION, Physical Exam Vital Signs: Temp Pulse Resp BP Pulse Ox 97.8 F 89 22 H 131/68 H 96 12/17/17 08:07 12/17/17 09:13 12/17/17 09:13 12/17/17 08:07 12/17/17 09:13 Intake & Output 12/16/17 12/17/17 12/18/17 06:59 06:59 06:59 Intake Total 3181 1874 Balance 3181 1874 Weight 98.9 kg 99.6 kg General appearance: PRESENT: obese Head exam: PRESENT: atraumatic Eye exam: ABSENT: scleral icterus Ear exam: PRESENT: normal external ear exam Mouth exam: PRESENT: moist Respiratory exam: PRESENT: symmetrical, unlabored. ABSENT: wheezes Cardiovascular exam: PRESENT: RRR GI/Abdominal exam: PRESENT: normal bowel sounds, soft. ABSENT: tenderness Rectal exam: PRESENT: deferred Gentrourinary exam: ABSENT: indwelling catheter Extremities exam: PRESENT: pedal edema Results Laboratory Results: 12/13/17 05:23 12/17/17 05:21 12/17/17 05:21 Sodium 145.0 Potassium 4.1 Chloride 107 Carbon Dioxide 31 H Anion Gap 7 BUN 27 H Creatinine 0.55 Est GFR ( Amer) > 60 Est GFR (Non-Af Amer) > 60 Glucose 70 L Calcium 9.0 Phosphorus 3.1 Magnesium 1.9 Total Bilirubin 0.1 L AST 19 ALT 37 Alkaline Phosphatase 50 Total Protein 4.9 L Albumin 2.8 L 12/11/17 05:48 NT-Pro-B Natriuret Pep 847 Impressions: Chest X-Ray 12/13/17 08:00 IMPRESSION: NO ACUTE RADIOGRAPHIC FINDING IN THE CHEST. Assessment & Plan - Diagnosis (1) COPD exacerbation Is this a current diagnosis for this admission?: Yes Plan: Improving. Continue Oxygen, taper steroids, nebs, mucolytics, antibiotic, inhalers (2) Diabetes Qualifiers: Diabetes mellitus type: type 2 Is this a current diagnosis for this admission?: Yes Plan: Insulin sliding scale (3) UTI (urinary tract infection) Qualifiers: Urinary tract infection type: site unspecified Hematuria presence: without hematuria Qualified Code(s): N39.0 - Urinary tract infection, site not specified Is this a current diagnosis for this admission?: Yes Plan: Urine culture growing ESBL E coli. last day of Meropenem is 12/18. (4) Hypothyroid Is this a current diagnosis for this admission?: Yes Plan: Continue synthroid (5) Essential hypertension Is this a current diagnosis for this admission?: Yes Plan: Continue Lisinopril and Metoprolol (6) Full code status Is this a current diagnosis for this admission?: Yes (7) GERD (gastroesophageal reflux disease) Qualifiers: Esophagitis presence: esophagitis presence not specified Qualified Code(s) : K21.9 - Gastro-esophageal reflux disease without esophagitis Is this a current diagnosis for this admission?: Yes Plan: PPI - Time Time Spent with patient: 25-34 minutes
[2017-12-17] MEDS: INSULIN LISPRO 100 UNIT/ML 3 ML VIAL SUBCUT PRN (16:52)
[2017-12-17] MEDS ORDERED: DIPHENHYDRAMINE HCL 25 MG CAPSULE PO PRN (22:53)
[2017-12-18] MEDS: LANSOPRAZOLE 30 MG TAB.RAP.DR PO SCH (06:52)
[2017-12-18] MEDS: METOPROLOL TARTRATE 25 MG TABLET PO SCH (06:52)
[2017-12-18] MEDS: LEVOTHYROXINE SODIUM 0.088 MG TABLET PO SCH (06:53)
[2017-12-18] MEDS: MEROPENEM 1 GM in NORMAL SALINE 50 ML IV SCH (06:53)
[2017-12-18] MEDS: ASCORBIC ACID 500 MG TABLET PO SCH (08:28)
[2017-12-18] MEDS: LACTOBACILLUS ACIDOPHILUS 250 MG TAB PO SCH (09:46)
[2017-12-18] MEDS: GUAIFENESIN 600 MG TABLET.SA PO SCH (09:46)
[2017-12-18] MEDS: PREDNISONE 20 MG TABLET PO SCH (09:46)
[2017-12-18] MEDS: MAGNESIUM OXIDE 400 MG TABLET PO SCH (09:46)
[2017-12-18] MEDS: LACTULOSE SYRUP 20 GM/30 ML UDCUP PO SCH (09:46)
[2017-12-18] MEDS: ENOXAPARIN SODIUM INJ 40 MG/0.4 ML DISP.SYRIN SUBCUT SCH (09:46)
[2017-12-18] MEDS: LISINOPRIL 5 MG TABLET PO SCH (09:46)
[2017-12-18] MEDS: FERROUS SULFATE 325 MG TABLET PO SCH (09:47)
[2017-12-18] MEDS: TIOTROPIUM BROMIDE DPI 5 CAP/KIT (18 MCG/CAP) IH SCH (09:47)
--- NOTE | 2017-12-18 13:55 | PDOC DISCHARGE SUMMARY ---
General - Admit/Disc Date/PCP Admission Date/Primary Care Provider: 12/10/17 19:03 Dr. Hernandez Discharge Date: 12/18/17 - Discharge Diagnosis (1) COPD exacerbation Is this a current diagnosis for this admission?: Yes (2) Diabetes Is this a current diagnosis for this admission?: Yes (3) UTI (urinary tract infection) Is this a current diagnosis for this admission?: Yes Summary: ESBL E coli (4) Hypothyroid Is this a current diagnosis for this admission?: Yes (5) Essential hypertension Is this a current diagnosis for this admission?: Yes (6) Full code status Is this a current diagnosis for this admission?: Yes (7) GERD (gastroesophageal reflux disease) Is this a current diagnosis for this admission?: Yes - Additional Information Discharge Diet: Diabetic Discharge Activity: Activity As Tolerated Prescriptions: Lactobacillus Acidophilus [Bacid 250 mg Tablet] 500 mg PO DAILY 20 Days #20 tab Magnesium Oxide [Mag-Ox 400 mg Tablet] 400 mg PO DAILY 30 Days #30 tablet Home Medications: Albuterol Sulfate [Proair HFA] 2 puff IH Q4HP PRN 12/11/17 Amlodipine Besylate [Norvasc 2.5 mg Tablet] 2.5 mg PO DAILY 12/11/17 Carvedilol [Coreg 6.25 mg Tablet] 6.25 mg PO Q12 12/11/17 Ferrous Sulfate [Feosol 325 mg Tablet] 325 mg PO DAILY 12/11/17 Furosemide [Lasix 40 mg Tablet] 40 mg PO BID 12/11/17 Glimepiride [Amaryl 1 mg Tablet] 1 mg PO DAILY 12/11/17 Ipratropium/Albuterol Sulfate [Duoneb 3 ml Ampul] 3 ml NEB [id number] 12/11/17 Levalbuterol HCl [Xopenex Neb 1.25 mg/3 ml Ampul] 1.25 mg NEB [id number] PRN Levothyroxine Sodium [Synthroid] 88 mcg PO Q6AM 12/11/17 Lisinopril [Zestril] 5 mg PO DAILY 12/11/17 Metformin HCl [Glucophage XR 500 mg Tablet] 500 mg PO BID 12/11/17 Oxycodone HCl/Acetaminophen [Percocet 5-325 mg Tablet] 1 tab PO BID 12/11/17 Pantoprazole Sodium [Protonix] 40 mg PO DAILY 12/11/17 Tiotropium [place] [Spiriva Handihaler 18 mcg/dose (30 Dose)] 18 mcg PO DAILY Tramadol HCl [Ultram 50 mg Tablet] 50 mg PO BIDP PRN 12/11/17 Ascorbic Acid [Vitamin C 500 mg Tablet] 500 mg PO BIDPCBS tablet 12/18/17 Lactobacillus Acidophilus [Bacid 250 mg Tablet] 500 mg PO DAILY 20 Days #20 tab 12/18/17 Magnesium Oxide [Mag-Ox 400 mg Tablet] 400 mg PO DAILY 30 Days #30 tablet History of Present Illness History of Present Illness: TRENTON DIALLO is a 72 year old female with a past medical history of Diabetes Hypertension Emphysema Chronic hypoxic respiratory failure on 2L NC at home Iron deficiency anemia Hypothyroidism Arthritis GERD External hemorrhoids She presented to the hospital on 12/09/17, was diagnosed with a UTI and discharged from the ER with a prescription for antibiotics which she could not fill since her pharmacy is closed till Monday. She presented back to the ER today with similar symptoms and was found to have sinus tachcardia, borderline low BP and given IV fluids and Levaquin and refereed for admission. No sick contacts. Positive chills, rhinorrhea and sore throat. Cough with green sputum. No chest pain. Positive dysuria Healthcare POA son Jason Diallo [phone]. Outpatient Meds: Lisinopril 5 mg daily Tramadol 50 mg twice a day Metformin 500 mg twice a day Calcium and vitamin D Multivitamin Synthroid 88 mcg Iron tablet Pantoprazole 40 mg daily Albuterol nebs 3-4 times a day Probiotic daily Furosemide 20 mg daily Coreg 6.25 mg twice a day Glimepiride 1 mg once a day Spiriva daily Advair 500/50 twice a day Aspirin 81 mg daily She was diagnosed with COPD exacerbation and ESBL E coli UTI and treated with steroids, nebs and a course of Meropenem. She was set up for home health and home PT and is stable for discharge. Hospital Course Hospital Course: Stool C diff negative No diarrhea Physical Exam Vital Signs: Temp Pulse Resp BP Pulse Ox 98.3 F 91 16 115/54 L 100 12/18/17 12:10 12/18/17 12:10 12/18/17 12:10 12/18/17 12:10 12/18/17 12:10 Intake & Output 12/17/17 12/18/17 12/19/17 06:59 06:59 06:59 Intake Total 1874 2340 Balance 1874 2340 Weight 99.6 kg 99.6 kg General appearance: PRESENT: no acute distress Head exam: PRESENT: normocephalic Eye exam: ABSENT: scleral icterus Ear exam: PRESENT: normal external ear exam Respiratory exam: PRESENT: symmetrical, unlabored Results Laboratory Results: 12/13/17 05:23 12/17/17 05:21 12/17/17 19:55 Stool Occult Blood NEGATIVE 12/11/17 05:48 NT-Pro-B Natriuret Pep 847 Impressions: Chest X-Ray 12/13/17 08:00 IMPRESSION: NO ACUTE RADIOGRAPHIC FINDING IN THE CHEST. Qualifiers - * PATIENT BEING DISCHARGED WITH ANY OF THE FOLLOWING DIAGNOSIS: No Plan Time Spent: Greater than 30 Minutes
[2017-12-18 16:22] VITALS: BP 115/54
== END 2017-12-18 15:41 | disposition home health service (06) | DRG 191 ==
LOC: ER 15:21 → EH 19:03 → 4N 20:47
PROVIDERS: ADMIT Internal Medicine; ATTEND Internal Medicine
DX: J43.9 Emphysema, unspecified (principal); N39.0 Urinary tract infection, site not specified; J96.10 Chronic respiratory failure, unspecified whether with hypoxia or hypercapnia; I50.32 Chronic diastolic (congestive) heart failure; I11.0 Hypertensive heart disease with heart failure; E11.9 Type 2 diabetes mellitus without complications; E03.9 Hypothyroidism, unspecified; M19.90 Unspecified osteoarthritis, unspecified site; E66.9 Obesity, unspecified; E78.5 Hyperlipidemia, unspecified; G89.29 Other chronic pain; M54.9 Dorsalgia, unspecified; Z16.12 Extended spectrum beta lactamase (ESBL) resistance; B96.20 Unspecified Escherichia coli [E. coli] as the cause of diseases classified elsewhere; K21.9 Gastro-esophageal reflux disease without esophagitis; K64.4 Residual hemorrhoidal skin tags; F03.90 Unspecified dementia, unspecified severity, without behavioral disturbance, psychotic disturbance, mood disturbance, and anxiety; I25.10 Atherosclerotic heart disease of native coronary artery without angina pectoris; Z85.841 Personal history of malignant neoplasm of brain; Z85.118 Personal history of other malignant neoplasm of bronchus and lung; Z99.81 Dependence on supplemental oxygen; Z79.84 Long term (current) use of oral hypoglycemic drugs; Z79.899 Other long term (current) drug therapy; I25.2 Old myocardial infarction; Z90.49 Acquired absence of other specified parts of digestive tract; Z87.891 Personal history of nicotine dependence; Z82.5 Family history of asthma and other chronic lower respiratory diseases; Z80.1 Family history of malignant neoplasm of trachea, bronchus and lung; Z88.1 Allergy status to other antibiotic agents
CPT/HCPCS: 36415; 71045; 80053; 81001; 82272; 82550; 82553; 82728; 82803; 82962; 83036; 83540; 83550; 83605; 83735; 83880; 84100; 84443; 84484; 85025; 85027; 85610; 87040; 87086; 87088; 87186; 87493; 93005; 93010; 96361; 96365; 99285; J1650; J1815; J1940; J1956; J2185; J2405; J2920; J3475; J3490; J7030; J7512; J7614

== ENCOUNTER 2017-12-19 19:50 | Emergency (ER) | payer MEDICARE, OTHER ==
--- NOTE | 2017-12-19 20:50 | ER Document Report ---
ED General - General Stated Complaint: SWOLLEN HAND Time Seen by Provider: 12/19/17 20:20 Mode of Arrival: Ambulatory Information source: Patient, Emergency Med Personnel, [facility] Records Notes: 72-year-old female with congestive heart failure, chronic respiratory failure, COPD, hypertension, coronary artery disease presents from home via EMS with left hand swelling. Patient states that she does not believe that her hand is swollen. She states that the woman who lives with her told her her hand was swollen and that she needed to go to the emergency room and called EMS. Patient reports that she has been doing well since her recent discharge from the hospital. She denies any worsening shortness of breath, increased oxygen requirement, chest pain, abdominal pain. Denies any injury to the left hand. TRAVEL OUTSIDE OF THE [place] IN LAST 30 DAYS: No - HPI Onset: Other Quality of pain: No pain Associated symptoms: None Exacerbated by: Denies Relieved by: Denies Similar symptoms previously: No Recently seen / treated by doctor: Yes - Related Data Allergies/Adverse Reactions: azithromycin Allergy (Verified 11/13/17 06:50) amoxicillin [Amoxicillin] Adverse Reaction (Verified 11/13/17 06:50) visual hallucinations erythromycin base [Erythromycin Base] Adverse Reaction (Verified 11/13/17 06:50) visual hallucinations Potassium Clavulanate * [From Augmentin] Adverse Reaction (Verified 11/13/17 06: 50) visual hallucinations Past Medical History - General Information source: Patient, [facility] Records - Social History Smoking Status: Former Smoker Frequency of alcohol use: None Drug Abuse: None Lives with: Friend Family History: COPD, Malignancy - Lung cancer - Past Medical History Cardiac Medical History: Reports: Hx Congestive Heart Failure, Hx Coronary Artery Disease, Hx Heart Attack, Hx Hypertension Denies: Hx DVT, Hx Hypercholesterolemia, Hx Pulmonary Embolism Pulmonary Medical History: Reports: Hx Asthma, Hx Bronchitis, Hx COPD - 2 L nasal home oxygen, Hx Pneumonia, Hx Respiratory Failure - Chronic respiratory failure Denies: Hx Sleep Apnea, Hx Tuberculosis Neurological Medical History: Denies: Hx Seizures Endocrine Medical History: Reports: Hx Diabetes Mellitus Type 2, Hx Hypothyroidism. 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 Denies: Hx Cirrhosis, Hx Hepatitis, Hx Ulcer Musculoskeltal Medical History: Reports Hx Arthritis, Denies Hx Multiple Sclerosis, Reports Hx Musculoskeletal Deformity, Reports Hx Musculoskeletal Trauma Psychiatric Medical History: Reports: Hx Dementia, Hx Depression Denies: Hx Bipolar Disorder, Hx Schizophrenia Infectious Medical History: Reports: Hx C-Diff. Denies: Hx Hepatitis Past Surgical History: Reports: Hx Cholecystectomy, Hx Orthopedic Surgery - Foot surgery, Other - cataract bilateral - Immunizations Hx Diphtheria, Pertussis, Tetanus Vaccination: Yes Hx Pneumococcal Vaccination: 08/30/12 Review of Systems - Review of Systems Notes: REVIEW OF SYSTEMS: CONSTITUTIONAL : Denies fever, chills, or sweats. Denies recent illness. Denies weight loss, recent hospitalizations. EENT: Denies visula changes, eye pain. Denies nasal or sinus congestion or discharge. Denies sore throat, oral lesions, difficulty swallowing. CARDIOVASCULAR: Denies chest pain. Denies palpitations or racing or irregular heart beat. Denies lower extremity edema. RESPIRATORY: Denies cough, cold, or chest congestion. Denies shortness of breath, difficulty breathing, or wheezing. GASTROINTESTINAL: Denies abdominal pain or distention. Denies nausea, vomiting , or diarrhea. Denies blood in vomitus, stools, or per rectum. Denies black, tarry stools. Denies constipation. GENITOURINARY: Denies difficulty urinating, painful urination, burning, frequency, blood in urine, or vaginal discharge. MUSCULOSKELETAL: Denies back or neck pain or stiffness. Denies joint pain or swelling. SKIN: Denies rash, lesions or sores. HEMATOLOGIC : Denies easy bruising or bleeding. LYMPHATIC: Denies swollen, enlarged glands. NEUROLOGICAL: Denies confusion or altered mental status. Denies passing out or loss of consciousness. Denies dizziness or lightheadedness. Denies headache. Denies weakness or paralysis or loss of use of either side. Denies problems with gait or speech. Denies sensory loss, numbness, or tingling. Denies seizures. PSYCHIATRIC: Denies anxiety or stress. Denies depression, suicidal ideation, or homicidal ideation. Physical Exam - Vital signs Vitals: BP 103/62 12/19/17 20:01 Interpretation: Normal. No: Hypertensive, Tachycardic - Notes Notes: PHYSICAL EXAMINATION: GENERAL: Well-appearing, well-nourished and in no acute distress. HEAD: Atraumatic, normocephalic. EYES: Pupils equal round and reactive to light, extraocular movements intact, conjunctiva are normal. ENT: Nares patent, oropharynx clear without exudates. Moist mucous membranes. NECK: Normal range of motion, supple without lymphadenopathy LUNGS: Breath sounds clear to auscultation bilaterally and equal. Mild expiratory wheezing. On nasal cannula. No accessory muscle use. No respiratory distress. HEART: Regular rate and rhythm without murmurs ABDOMEN: Soft, nontender, nondistended abdomen. No guarding, no rebound. No masses appreciated. Female : deferred Musculoskeletal: Normal range of motion, mild nonpitting edema bilateral lower extremity. mild swelling of left hand without associated pain, erythema. NEUROLOGICAL: Cranial nerves grossly intact. Normal speech, normal gait. Normal sensory, motor exams PSYCH: Normal mood, normal affect. SKIN: Warm, Dry, normal turgor, no rashes or lesions noted. Course - Re-evaluation Re-evalutation: Laboratory 12/19/17 12/19/17 12/19/17 21:00 21:00 21:00 WBC 5.0 RBC 3.01 L Hgb 10.2 L Hct 29.7 L MCV 99 H MCH 33.9 H MCHC 34.3 RDW 17.8 H Plt Count 228 Total Counted 100 Seg Neutrophils % Not Reportable Seg Neuts % (Manual) 63 Band Neutrophils % 4 Lymphocytes % Not Reportable Lymphocytes % (Manual) 14 Monocytes % Not Reportable Monocytes % (Manual) 17 H Eosinophils % Not Reportable Eosinophils % (Manual) 2 Basophils % Not Reportable Basophils % (Manual) 0 Absolute Neutrophils Not Reportable Abs Neuts (Manual) 3.4 Absolute Lymphocytes Not Reportable Abs Lymphs (Manual) 0.7 Absolute Monocytes Not Reportable Abs Monocytes (Manual) 0.9 Absolute Eosinophils Not Reportable Absolute Eos (Manual) 0.1 Absolute Basophils Not Reportable Abs Basophils (Manual) 0.0 Toxic Granulation SLIGHT Platelet Comment ADEQUATE Poikilocytosis SLIGHT Anisocytosis 1+ Macrocytosis SLIGHT Tear Drop Cells SLIGHT Sodium 141.7 Potassium 3.1 L Chloride 96 L Carbon Dioxide 39 H Anion Gap 7 BUN 21 H Creatinine 0.69 Est GFR ( Amer) > 60 Est GFR (Non-Af Amer) > 60 Glucose 122 H Calcium 9.3 Total Bilirubin < 0.1 L Direct Bilirubin UNABLE TO CALCULATE Neonat Total Bilirubin Not Reportable Neonat Direct Bilirubin Not Reportable Neonat Indirect Bili Not Reportable AST 19 ALT 33 Alkaline Phosphatase 66 CK-MB (CK-2) 0.64 Troponin I 0.036 NT-Pro-B Natriuret Pep 506 Total Protein 4.7 L Albumin 2.8 L Chest X-Ray 12/19/17 20:36 IMPRESSION: New small left pleural effusion and basilar subsegmental atelectasis. Hand X-Ray 12/19/17 20:44 IMPRESSION: No fracture. 72-year-old female with congestive heart failure, chronic respiratory failure, COPD, hypertension, coronary artery disease presents from home via EMS with left hand swelling. Patient states that she does not believe that her hand is swollen. She states that the woman who lives with her told her her hand was swollen and that she needed to go to the emergency room and called EMS. Patient reports that she has been doing well. She denies any worsening shortness of breath, increased oxygen requirement, chest pain, abdominal pain. Denies any injury to the left hand. 12/19/17 22:34 Patient found to have a small left pleural effusion. Patient's potassium was also likely secondary to diuretics. This was replenished. She was made aware of this and states that she does not feel more short of breath. She is declining admission to the hospital. 12/19/17 23:58 12/19/17 23:58 Patient is alert and oriented 3 and capable of making her own decisions at this time. She consistently denies any worsening shortness of breath, chest pain, edema. She consistently declines admission to the hospital. She feels that she is capable of caring for herself at home. Patient was provided a referral to pulmonology. 12/20/17 12:40 Patient provided the opportunity to ask questions, and express concerns. Discharge instructions discussed. Patient is agreeable with discharge home. Return indications explained and discussed with the patient who displays understanding. Patient encouraged to return to the emergency department immediately with any concerns. 12/20/17 12:41 - Vital Signs Vital signs: Temp Pulse Resp BP Pulse Ox 108/63 12/19/17 21:10 - Laboratory Result Diagrams: 12/19/17 21:00 12/19/17 21:00 Laboratory results interpreted by me: 12/19/17 12/19/17 21:00 21:00 RBC 3.01 L Hgb 10.2 L Hct 29.7 L MCV 99 H MCH 33.9 H RDW 17.8 H Monocytes % (Manual) 17 H Potassium 3.1 L Chloride 96 L Carbon Dioxide 39 H BUN 21 H Glucose 122 H Total Bilirubin < 0.1 L Total Protein 4.7 L Albumin 2.8 L - Diagnostic Test Radiology reviewed: Image reviewed, Reports reviewed - EKG Interpretation by Me EKG shows normal: Sinus rhythm Rate: Normal, Tachycardia Rhythm: NSR Discharge - Discharge Clinical Impression: Chronic respiratory failure with hypoxia, Swelling of left hand, Pleural effusion, Chronic diastolic CHF (congestive heart failure), Hypokalemia Condition: Fair Disposition: HOME, SELF-CARE Instructions: Chronic Obstructive Lung Disease ([facility]), Pleural Effusion ([facility]) Referrals: ERIC SINGH MD [ACTIVE STAFF] - Follow up as needed
[2017-12-19 21:16] LABS: HEMATOCRIT 29.7 % (36.0-47.0); HEMOGLOBIN 10.2 g/dL (12.0-15.5); MEAN CORPUSCULAR HEMOGLOBIN 33.9 pg (27.0-33.4); MEAN CORPUSCULAR HGB CONC 34.3 g/dL (32.0-36.0); MEAN CORPUSCULAR VOLUME 99 fl (80-97); PLATELET COUNT 228 10^3/uL (150-450); RED BLOOD COUNT 3.01 10^6/uL (3.72-5.28); RED CELL DISTRIBUTION WIDTH 17.8 % (11.5-14.0)
[2017-12-19 21:35] LABS: ALANINE AMINOTRANSFERASE 33 U/L (9-52); ALBUMIN 2.8 g/dL (3.5-5.0); ALKALINE PHOSPHATASE 66 U/L (38-126); ANION GAP 7 (5-19); ASPARTATE AMINO TRANSFERASE 19 U/L (14-36); BLOOD UREA NITROGEN 21 mg/dL (7-20); CALCIUM 9.3 mg/dL (8.4-10.2); CARBON DIOXIDE 39 mmol/L (22-30); CHLORIDE 96 mmol/L (98-107); GLUCOSE 122 mg/dL (75-110); POTASSIUM 3.1 mmol/L (3.6-5.0); SODIUM 141.7 mmol/L (137-145); TOTAL PROTEIN 4.7 g/dL (6.3-8.2)
[2017-12-19 21:36] LABS: BILIRUBIN,DIRECT UNABLE TO CALCULATE mg/dL (0.0-0.4); BILIRUBIN,TOTAL < 0.1 mg/dL (0.2-1.3)
[2017-12-19 21:40] LABS: ABSOLUTE LYMPHOCYTES# (MANUAL) 0.7 10^3/uL (0.5-4.7); ABSOLUTE MONOCYTES # (MANUAL) 0.9 10^3/uL (0.1-1.4); ABSOLUTE NEUTROPHILS# (MANUAL) 3.4 10^3/uL (1.7-8.2); BAND NEUTROPHILS % (MANUAL) 4 % (3-5); BASOPHILS % (MANUAL) 0 % (0-2); EOSINOPHILS % (MANUAL) 2 % (0-6); LYMPHOCYTES % (MANUAL) 14 % (13-45); MONOCYTES % (MANUAL) 17 % (3-13); SEGMENTED NEUTROPHILS % (MAN) 63 % (42-78); TOTAL CELLS COUNTED 100
[2017-12-19 21:41] LABS: ANISOCYTOSIS 1+; POIKILOCYTOSIS SLIGHT; TOXIC GRANULATION SLIGHT
[2017-12-19 21:42] LABS: PLATELET COMMENT ADEQUATE; TEAR DROP CELLS SLIGHT
[2017-12-19 21:47] LABS: CREATINE KINASE MB 0.64 ng/mL (<4.55)
--- NOTE | 2017-12-19 21:52 | RADIOLOGY REPORT (SQ) ---
EXAM DESCRIPTION: CHEST 2 VIEWS COMPLETED DATE/TIME: 12/19/2017 9:37 pm REASON FOR STUDY: sob COMPARISON: None. EXAM PARAMETERS: NUMBER OF VIEWS: two views TECHNIQUE: Digital Frontal and Lateral radiographic views of the chest acquired. RADIATION DOSE: NA LIMITATIONS: none FINDINGS: LUNGS AND PLEURA: New small left pleural effusion and basilar subsegmental atelectasis. R ight lung appears clear. No pneumothorax. MEDIASTINUM AND HILAR STRUCTURES: Stable. HEART AND VASCULAR STRUCTURES: Stable. BONES: No acute findings. HARDWARE: None in the chest. OTHER: No other significant finding. IMPRESSION: New small left pleural effusion and basilar subsegmental atelectasis. TECHNICAL DOCUMENTATION: JOB ID: [id number] 2010 [employer]- All Rights Reserved Reading location - IP/workstation name: [employer]
--- NOTE | 2017-12-19 21:54 | RADIOLOGY REPORT (SQ) ---
EXAM DESCRIPTION: HAND LEFT 3 VIEWS COMPLETED DATE/TIME: 12/19/2017 9:37 pm REASON FOR STUDY: hand swelling COMPARISON: None. EXAM PARAMETERS: NUMBER OF VIEWS: Three views. TECHNIQUE: AP, lateral and oblique radiographic images acquired of the left hand. LIMITATIONS: None. FINDINGS: MINERALIZATION: Osteopenia. BONES: No acute fracture or dislocation. No worrisome bone lesions. JOINTS: No effusions. SOFT TISSUES: No soft tissue swelling. No foreign body. OTHER: No other significant finding. IMPRESSION: No fracture. TECHNICAL DOCUMENTATION: JOB ID: [id number] 2010 [employer]- All Rights Reserved Reading location - IP/workstation name: [email or web address]
[2017-12-19 21:58] LABS: TROPONIN I 0.036 ng/mL
[2017-12-19] MEDS ORDERED: POTASSIUM CHLORIDE 20 MEQ/15 ML UDCUP PO ONE (22:27)
[2017-12-19 22:28] VITALS: BP 108/63
--- NOTE | 2017-12-20 07:25 | EKG REPORT ---
SEVERITY:- ABNORMAL ECG - SINUS TACHYCARDIA MULTIPLE PREMATURE COMPLEXES, SUPRAVEN RIGHT BUNDLE BRANCH BLOCK : Confirmed by: Issa Martinez MD 20-Dec-2017 07:25:03
== END 2017-12-20 00:11 | disposition home or self-care (01) ==
LOC: ER 19:50
DX: M79.89 Other specified soft tissue disorders (principal); I50.9 Heart failure, unspecified; J96.11 Chronic respiratory failure with hypoxia; E87.6 Hypokalemia; I11.0 Hypertensive heart disease with heart failure; J44.9 Chronic obstructive pulmonary disease, unspecified; E11.9 Type 2 diabetes mellitus without complications; Z88.3 Allergy status to other anti-infective agents; Z88.0 Allergy status to penicillin; Z90.49 Acquired absence of other specified parts of digestive tract
CPT/HCPCS: 93005; 99284; 36415; 82553; 85025; 80053; 84484; 83880; 71046; 73130; 93010; A9270

== ENCOUNTER 2017-12-22 13:36 | Inpatient (IN) | payer MEDICARE, OTHER ==
--- NOTE | 2017-12-22 13:43 | ER Document Report ---
ED General - General Stated Complaint: LOW BLOOD PRESSURE Time Seen by Provider: 12/22/17 13:43 Notes: Patient was brought in by EMS for low blood pressure. Grandson is here in providing most historical information. Says that the patient had EMS at her residence twice yesterday and her blood pressure was somewhat low. She was not brought in for evaluation here. Today, she is complaining of hurting all over and her blood pressure is low again, in the 70s systolic. Patient has had similar problems in the past. Suffers from COPD and secondary hypoxia. On home O2. Denies chest pains. Has had vomiting for the past couple of days. Also having diarrhea. Not sure if she is having any fever. Patient has had numerous evaluations and treatments for respiratory problems. She has been to this emergency department over 15 times already in the calendar year 2017. She was just here a couple of days ago and hypoxic and refused to be admitted, as recommended. TRAVEL OUTSIDE OF THE [place] IN LAST 30 DAYS: No - Related Data Allergies/Adverse Reactions: azithromycin Allergy (Verified 12/22/17 14:19) amoxicillin [Amoxicillin] Adverse Reaction (Verified 12/22/17 14:19) visual hallucinations erythromycin base [Erythromycin Base] Adverse Reaction (Verified 12/22/17 14:19) visual hallucinations Potassium Clavulanate * [From Augmentin] Adverse Reaction (Verified 12/22/17 14: 19) visual hallucinations Past Medical History - Social History Smoking Status: Former Smoker Family History: COPD, Malignancy - Lung cancer - Past Medical History Cardiac Medical History: Reports: Hx Congestive Heart Failure, Hx Coronary Artery Disease, Hx Heart Attack, Hx Hypertension Denies: Hx DVT, Hx Hypercholesterolemia, Hx Pulmonary Embolism Pulmonary Medical History: Reports: Hx Asthma, Hx Bronchitis, Hx COPD - 2 L nasal home oxygen, Hx Pneumonia, Hx Respiratory Failure - Chronic respiratory failure Denies: Hx Sleep Apnea, Hx Tuberculosis Neurological Medical History: Denies: Hx Seizures Endocrine Medical History: Reports: Hx Diabetes Mellitus Type 2, Hx Hypothyroidism. 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 Denies: Hx Cirrhosis, Hx Hepatitis, Hx Ulcer Musculoskeltal Medical History: Reports Hx Arthritis, Denies Hx Multiple Sclerosis, Reports Hx Musculoskeletal Deformity, Reports Hx Musculoskeletal Trauma Psychiatric Medical History: Reports: Hx Dementia, Hx Depression Denies: Hx Bipolar Disorder, Hx Schizophrenia Infectious Medical History: Reports: Hx C-Diff. Denies: Hx Hepatitis Past Surgical History: Reports: Hx Cholecystectomy, Hx Orthopedic Surgery - Foot surgery, Other - cataract bilateral - Immunizations Hx Diphtheria, Pertussis, Tetanus Vaccination: Yes Hx Pneumococcal Vaccination: 08/30/12 Review of Systems - Review of Systems Notes: REVIEW OF SYSTEMS: CONSTITUTIONAL : Not sure if he may have had a fever. Feels weak. EENT: Denies eye, ear, nose or mouth or throat pain or other symptoms. CARDIOVASCULAR: Denies chest pain. RESPIRATORY: Denies cough, chest congestion, but has felt some shortness of breath. GASTROINTESTINAL: Denies abdominal pain but has had nausea, vomiting, and diarrhea. GENITOURINARY: Denies difficulty or painful urinating, urinary frequency, blood in urine. MUSCULOSKELETAL: Denies back or neck pain. Denies joint pain or swelling. SKIN: Denies rash or skin lesions. NEUROLOGICAL: Denies LOC or altered mental status. Denies headache. Denies sensory loss or motor deficits. ALL OTHER SYSTEMS REVIEWED AND NEGATIVE. -: Yes ROS unobtainable due to patient's medical condition - Patient is somewhat slow to answer questions and grandson provides some ROS Physical Exam - Vital signs Vitals: Temp Resp BP 98.5 F 24 H 85/54 L 12/22/17 13:40 12/22/17 13:40 12/22/17 13:40 Interpretation: Hypotensive - Blood pressure at triage was 76/58.. No: Tachycardic, Hypoxic, Tachypneic - Notes Notes: PHYSICAL EXAMINATION: GENERAL: Well-appearing, in no acute distress. Blood pressure low, 76/58. HEAD: Atraumatic, normocephalic. EYES: Pupils equal round and reactive to light, extraocular movements intact. ENT: oropharynx clear without exudates. Moist mucous membranes. NECK: Normal range of motion, supple. LUNGS: Shallow breath sounds, equal bilaterally. HEART: Regular rate and rhythm without murmurs. ABDOMEN: Soft, nontender. No guarding or rebound. No masses. BACK: No tenderness throughout entire back. EXTREMITIES: Normal range of motion without pain. NEUROLOGICAL: Normal speech, unable to stand. Moves all 4 extremities. Awake , alert, and oriented x3. PSYCH: Normal mood, normal affect. SKIN: Warm, dry, no rashes. Course - Re-evaluation Re-evalutation: 12/22/17 18:16 Patient is complaining about the uncomfortable mask with BiPAP. Told her the alternative is intubation on the ventilator. O2 sat is 100%. Blood pressure is now acceptable 110 systolic. Patient is going to be admitted to [facility]. - Vital Signs Vital signs: Temp Pulse Resp BP Pulse Ox 98.5 F 17 120/72 100 12/22/17 13:40 12/22/17 18:50 12/22/17 18:50 12/22/17 18:50 - Laboratory Result Diagrams: 12/22/17 14:30 12/22/17 14:30 Laboratory results interpreted by me: 12/22/17 12/22/17 12/22/17 14:30 14:30 15:00 RBC 2.62 L Hgb 8.7 L Hct 25.7 L MCV 98 H RDW 17.6 H Monocytes % 18.3 H VBG pCO2 VBG HCO3 Potassium 3.2 L Chloride 95 L Carbon Dioxide 38 H BUN 28 H Creatinine 1.48 H Est GFR ( Amer) 42 L Est GFR (Non-Af Amer) 34 L Glucose 50 L Creatine Kinase < 20 L Total Protein 4.5 L Albumin 2.6 L Urine Blood 12/22/17 12/22/17 15:05 15:20 RBC Hgb Hct MCV RDW Monocytes % VBG pCO2 72.6 H* VBG HCO3 37.4 H Potassium Chloride Carbon Dioxide BUN Creatinine Est GFR ( Amer) Est GFR (Non-Af Amer) Glucose Creatine Kinase Total Protein Albumin Urine Blood MODERATE H - Diagnostic Test Radiology results interpreted by me: 12/22/17 16:56 Chest x-ray shows COPD. No acute infiltrates or other findings. - EKG Interpretation by Id EKG shows normal: Sinus rhythm Rate: Normal Rhythm: NSR - At 92/min [place]/QRS: RBBB When compared to previous EKG there are: No significant change Additional EKG results interpreted by me: 12/22/17 16:57 EKG shows generalized low voltage. Critical Care Note - Critical Care Note Total time excluding time spent on procedures (mins): 35 Discharge - Discharge Clinical Impression: Hypotension, Hypercapnia Disposition: ADMITTED INPATIENT Admitting Provider: Hospitalist Unit Admitted: [facility]
[2017-12-22] MEDS: NORMAL SALINE 1000 ML 1,000 ML IV PRN ×2 (14:10→18:01)
[2017-12-22 15:01] LABS: ABSOLUTE EOSINOPHILS # (AUTO) 0.1 10^3/uL (0.0-0.6); ABSOLUTE LYMPHOCYTES (AUTO) 0.8 10^3/uL (0.5-4.7); ABSOLUTE MONOCYTES (AUTO) 1.1 10^3/uL (0.1-1.4); ABSOLUTE NEUT (AUTO) 3.9 10^3/uL (1.7-8.2); BASOPHILS % (AUTO) 0.3 % (0-2); EOSINOPHILS % (AUTO) 1.1 % (0-6); HEMATOCRIT 25.7 % (36.0-47.0); HEMOGLOBIN 8.7 g/dL (12.0-15.5); LYMPHOCYTES % (AUTO) 13.1 % (13-45); MEAN CORPUSCULAR HEMOGLOBIN 33.3 pg (27.0-33.4); MEAN CORPUSCULAR HGB CONC 33.9 g/dL (32.0-36.0); MEAN CORPUSCULAR VOLUME 98 fl (80-97); MONOCYTES % (AUTO) 18.3 % (3-13); PLATELET COUNT 165 10^3/uL (150-450); RED BLOOD COUNT 2.62 10^6/uL (3.72-5.28); RED CELL DISTRIBUTION WIDTH 17.6 % (11.5-14.0); SEGMENTED NEUTROPHILS % (AUTO) 67.2 % (42-78); TOTAL CELLS COUNTED % (AUTO) 100 %; WHITE BLOOD COUNT 5.8 10^3/uL (4.0-10.5)
[2017-12-22 15:13] LABS: ALANINE AMINOTRANSFERASE 30 U/L (9-52); ALBUMIN 2.6 g/dL (3.5-5.0); ALKALINE PHOSPHATASE 49 U/L (38-126); ANION GAP 7 (5-19); ASPARTATE AMINO TRANSFERASE 22 U/L (14-36); BILIRUBIN,DIRECT 0.2 mg/dL (0.0-0.4); BILIRUBIN,TOTAL 0.2 mg/dL (0.2-1.3); BLOOD UREA NITROGEN 28 mg/dL (7-20); CALCIUM 9.4 mg/dL (8.4-10.2); CARBON DIOXIDE 38 mmol/L (22-30); CHLORIDE 95 mmol/L (98-107); GLUCOSE 50 mg/dL (75-110); POTASSIUM 3.2 mmol/L (3.6-5.0); SODIUM 139.7 mmol/L (137-145); TOTAL PROTEIN 4.5 g/dL (6.3-8.2)
[2017-12-22] MEDS ORDERED: DEXTROSE 50%-WATER 25 GM/50 ML DISP.SYRIN IV ONE (15:37)
[2017-12-22 15:38] LABS: VENOUS BLOOD BASE EXCESS 9.2 mmol/L; VENOUS BLOOD HCO3 37.4 mmol/L (20-32); VENOUS BLOOD PH 7.33 (7.30-7.42)
[2017-12-22 15:40] LABS: APPEARANCE,URINE CLEAR; BILIRUBIN,URINE NEGATIVE (NEGATIVE); COLOR,URINE STRAW; GLUCOSE, URINE NEGATIVE (NEGATIVE); KETONES,URINE NEGATIVE (NEGATIVE); LEUKOCYTE ESTERASE,URINE NEGATIVE (NEGATIVE); NITRITE,URINE NEGATIVE (NEGATIVE); PROTEIN,URINE NEGATIVE (NEGATIVE); URINE SPECIFIC GRAVITY 1.005; UROBILINOGEN,URINE NEGATIVE mg/dL (<2.0)
[2017-12-22 15:41] LABS: VENOUS BLOOD PCO2 72.6 mmHg (35-63)
[2017-12-22 15:50] LABS: INTERNATIONAL RATION (INR) 0.91; PROTHROMBIN TIME 12.7 SEC (11.4-15.4)
--- NOTE | 2017-12-22 16:45 | RADIOLOGY REPORT (SQ) ---
EXAM DESCRIPTION: CHEST SINGLE VIEW COMPLETED DATE/TIME: 12/22/2017 4:35 pm REASON FOR STUDY: COPD, hypoxia, hypercapnia COMPARISON: 12/19/2017 NUMBER OF VIEWS: One view. TECHNIQUE: Single frontal radiographic image of the chest acquired. LIMITATIONS: None. FINDINGS: LUNGS AND PLEURA: COPD. No evidence of superimposed pneumonia or edema. MEDIASTINUM AND HILAR STRUCTURES: Stable heart size and mediastinal structures. HEART AND VASCULAR STRUCTURES: Stable appearance. BONES: No acute findings. HARDWARE: None in the chest. OTHER: No other significant finding. IMPRESSION: COPD. No acute findings. TECHNICAL DOCUMENTATION: JOB ID: [id number] [employer]- All Rights Reserved Reading location - IP/workstation name: [email or web address]
[2017-12-22 17:40] LABS: CREATINE KINASE MB 0.52 ng/mL (<4.55); TROPONIN I 0.026 ng/mL
[2017-12-22] MEDS ORDERED: DEXTROSE 40% GEL 15 GM TUBE PO PRN ×2 (17:49)
[2017-12-22] MEDS ORDERED: DEXTROSE 50%-WATER 25 GM/50 ML DISP.SYRIN IV PRN ×2 (17:49)
[2017-12-22] MEDS ORDERED: GLUCAGON,HUMAN RECOMB 1 MG INJ IM PRN (17:49)
--- NOTE | 2017-12-22 18:05 | PDOC H&P ---
History of Present Illness Admission Date/PCP: ARASELI AGUILAR MD History of Present Illness: TRENTON MCCOY is a 72 year old female patient with multiple comorbidities eluding CHF, CAD, HTN, DM, hypothyroidism, dementia, COPD and depression. Today patient was brought by EMS for low blood pressure and shortness of breath. Since patient is somewhat sedated underlying dementia and she is on BiPAP with full facemask she is not source of history I got brief history from the ER attending note and reviewing previous charts. Patient seen at ER with blood pressure in the systolic of 70s for which she was bolused with 2 L of normal saline and she was put on BiPAP for her shortness of breath. 3 days ago patient was seen in ER for shortness of breath and patient was offered admission but she declined and went home. Of note, patient is frequent flyer and she has been to [facility] about 15 times already in 2017. Her blood works are unremarkable except for CKD with creatinine of 1.48 and GFR of 35. Further detailed history and review of systems unobtainable Past Medical History Cardiac Medical History: Reports: Congestive Heart Failure, Coronary Artery Disease, Myocardial Infarction, Hypertension Denies: DVT, Hyperlipidema, Pulmonary Embolism Pulmonary Medical History: Reports: Asthma, Bronchitis, Chronic Obstructive Pulmonary Disease (COPD) - 2 L nasal home oxygen, Pneumonia, Respiratory Failure - Chronic respiratory failure Denies: Sleep Apnea, Tuberculosis Neurological Medical History: Denies: Seizures Endocrine Medical History: Reports: Diabetes Mellitus Type 2, Hypothyroidism Denies: Diabetes Mellitus Type 1, Hyperthyroidism Renal/ Medical History: Denies: End Stage Renal Disease Malignancy Medical History: Reports: Brain Cancer - Lung cancer with brain metastases, 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 GI Medical History: Reports: Gastroesophageal Reflux Disease Denies: Cirrhosis, Hepatitis Musculoskeltal Medical History: Reports: Arthritis Psychiatric Medical History: Reports: Dementia, Depression Denies: Bipolar Disorder Hematology: Reports: Anemia, Bleeding Tendencies Infectious Medical History: Reports: Clostridium Difficile Past Surgical History Past Surgical History: Reports: Cholecystectomy, Orthopedic Surgery - Foot surgery, Other - cataract bilateral Social History Smoking Status: Former Smoker Frequency of Alcohol Use: None Hx Recreational Drug Use: No Drugs: None Hx Prescription Drug Abuse: No - Advance Directive Resuscitation Status: Full Code Family History Family History: COPD, Malignancy - Lung cancer Parental Family History Reviewed: Yes Children Family History Reviewed: Yes Sibling(s) Family History Reviewed.: Yes Medication/Allergy Allergies/Adverse Reactions: azithromycin Allergy (Verified 12/22/17 14:19) amoxicillin [Amoxicillin] Adverse Reaction (Verified 12/22/17 14:19) visual hallucinations erythromycin base [Erythromycin Base] Adverse Reaction (Verified 12/22/17 14:19) visual hallucinations Potassium Clavulanate * [From Augmentin] Adverse Reaction (Verified 12/22/17 14: 19) visual hallucinations Review of Systems ROS unobtainable: Due to mental status Physical Exam Vital Signs: Temp Pulse Resp BP Pulse Ox 98.5 F 16 99/64 L 100 12/22/17 13:40 12/22/17 17:30 12/22/17 17:30 12/22/17 17:30 Intake & Output 12/21/17 12/22/17 12/23/17 06:59 06:59 06:59 Output Total 600 Balance -600 Weight 86.954 kg General appearance: PRESENT: other - In mild to moderate respiratory distress Head exam: PRESENT: atraumatic, normocephalic Respiratory exam: PRESENT: decreased breath sounds, tachypnea, wheezes Pulses: PRESENT: other - Hypotension GI/Abdominal exam: PRESENT: normal bowel sounds, soft. ABSENT: distended, guarding, mass, organolmegaly, rebound, tenderness Results Laboratory Results: 12/22/17 14:30 12/22/17 14:30 12/22/17 12/22/17 12/22/17 14:30 14:30 15:05 WBC 5.8 RBC 2.62 L Hgb 8.7 L Hct 25.7 L MCV 98 H MCH 33.3 MCHC 33.9 RDW 17.6 H Plt Count 165 Seg Neutrophils % 67.2 Lymphocytes % 13.1 Monocytes % 18.3 H Eosinophils % 1.1 Basophils % 0.3 Absolute Neutrophils 3.9 Absolute Lymphocytes 0.8 Absolute Monocytes 1.1 Absolute Eosinophils 0.1 Absolute Basophils 0.0 VBG pH VBG pCO2 VBG HCO3 VBG Base Excess Sodium 139.7 Potassium 3.2 L Chloride 95 L Carbon Dioxide 38 H Anion Gap 7 BUN 28 H Creatinine 1.48 H Est GFR ( Amer) 42 L Est GFR (Non-Af Amer) 34 L Glucose 50 L Lactic Acid Calcium 9.4 Total Bilirubin 0.2 AST 22 ALT 30 Alkaline Phosphatase 49 Total Protein 4.5 L Albumin 2.6 L Urine Color STRAW Urine Appearance CLEAR Urine pH 6.0 Ur Specific Calcium 1.005 Urine Protein NEGATIVE Urine Glucose (UA) NEGATIVE Urine Ketones NEGATIVE Urine Blood MODERATE H Urine Nitrite NEGATIVE Ur Leukocyte Esterase NEGATIVE Urine WBC (Auto) 1 Urine RBC (Auto) 0 12/22/17 12/22/17 15:20 15:20 WBC RBC Hgb Hct MCV MCH MCHC RDW Plt Count Seg Neutrophils % Lymphocytes % Monocytes % Eosinophils % Basophils % Absolute Neutrophils Absolute Lymphocytes Absolute Monocytes Absolute Eosinophils Absolute Basophils VBG pH 7.33 VBG pCO2 72.6 H* VBG HCO3 37.4 H VBG Base Excess 9.2 Sodium Potassium Chloride Carbon Dioxide Anion Gap BUN Creatinine Est GFR ( Amer) Est GFR (Non-Af Amer) Glucose Lactic Acid 0.7 Calcium Total Bilirubin AST ALT Alkaline Phosphatase Total Protein Albumin Urine Color Urine Appearance Urine pH Ur Specific Calcium Urine Protein Urine Glucose (UA) Urine Ketones Urine Blood Urine Nitrite Ur Leukocyte Esterase Urine WBC (Auto) Urine RBC (Auto) 12/22/17 12/22/17 15:00 15:00 Creatine Kinase < 20 L CK-MB (CK-2) 0.52 Troponin I 0.026 Impressions: Chest X-Ray 12/22/17 16:19 IMPRESSION: COPD. No acute findings. Assessment & Plan - Diagnosis (1) Acute and chronic respiratory failure with hypercapnia Is this a current diagnosis for this admission?: Yes Plan: Patient has been started on BiPAP. And she is on Solu-Medrol DuoNeb and doxycycline (2) Chronic diastolic CHF (congestive heart failure) Is this a current diagnosis for this admission?: Yes Plan: Stable. teletypesetter monitor (3) Coronary artery disease Qualifiers: Coronary Disease-Associated Artery/Lesion type: [place] artery Is this a current diagnosis for this admission?: Yes Plan: Continue home medication (4) Diabetes Qualifiers: Diabetes mellitus type: type 2 Is this a current diagnosis for this admission?: Yes Plan: Has been started on sliding scale. - Time Time Spent: 30 to 50 Minutes - Inpatient Certification Medical Necessity: Need Close Monitoring Due to Risk of Patient Decompensation, Need For Continuous Telemetry Monitoring, Need for IV Antibiotics
[2017-12-22] MEDS: DOXYCYCLINE HYCLATE 100 MG in DEXTROSE 5%-WATER 250 ML IV SCH (18:24)
--- NOTE | 2017-12-22 18:27 | EKG REPORT ---
SEVERITY:- ABNORMAL ECG - SINUS RHYTHM RIGHT BUNDLE BRANCH BLOCK : Confirmed by: Issa Martinez MD 22-Dec-2017 18:26:42
[2017-12-22] MEDS: IPRATROPIUM/ALBUTEROL 0.5-2.5 MG/3 ML AMPUL NEB SCH ×2 (19:51→23:43)
[2017-12-22] MEDS: HEPARIN SOD (PORCINE) 5,000 UNIT/ML 1 ML SYRINGE SUBCUT SCH (22:42)
[2017-12-22] MEDS: METHYLPREDNISOLONE INJ 40 MG/1 ML SDV IV SCH (22:42)
[2017-12-23] MEDS: IPRATROPIUM/ALBUTEROL 0.5-2.5 MG/3 ML AMPUL NEB SCH ×5 (03:46→20:42)
[2017-12-23 05:12] LABS: ABSOLUTE LYMPHOCYTES (AUTO) 0.3 10^3/uL (0.5-4.7); ABSOLUTE MONOCYTES (AUTO) 0.2 10^3/uL (0.1-1.4); ABSOLUTE NEUT (AUTO) 3.9 10^3/uL (1.7-8.2); BASOPHILS % (AUTO) 0.1 % (0-2); EOSINOPHILS % (AUTO) 0.2 % (0-6); HEMATOCRIT 25.5 % (36.0-47.0); HEMOGLOBIN 8.8 g/dL (12.0-15.5); LYMPHOCYTES % (AUTO) 6.6 % (13-45); MEAN CORPUSCULAR HEMOGLOBIN 33.7 pg (27.0-33.4); MEAN CORPUSCULAR HGB CONC 34.3 g/dL (32.0-36.0); MEAN CORPUSCULAR VOLUME 98 fl (80-97); MONOCYTES % (AUTO) 3.7 % (3-13); PLATELET COUNT 155 10^3/uL (150-450); RED CELL DISTRIBUTION WIDTH 17.7 % (11.5-14.0); SEGMENTED NEUTROPHILS % (AUTO) 89.4 % (42-78); TOTAL CELLS COUNTED % (AUTO) 100 %; WHITE BLOOD COUNT 4.3 10^3/uL (4.0-10.5)
[2017-12-23 05:37] LABS: ANION GAP 6 (5-19); BLOOD UREA NITROGEN 23 mg/dL (7-20); CARBON DIOXIDE 38 mmol/L (22-30); CHLORIDE 97 mmol/L (98-107); GLUCOSE 217 mg/dL (75-110); POTASSIUM 3.6 mmol/L (3.6-5.0); SODIUM 141.1 mmol/L (137-145)
[2017-12-23] MEDS: METHYLPREDNISOLONE INJ 40 MG/1 ML SDV IV SCH ×3 (06:10→22:02)
[2017-12-23] MEDS: DOXYCYCLINE HYCLATE 100 MG in DEXTROSE 5%-WATER 250 ML IV SCH ×2 (06:10→17:45)
[2017-12-23] MEDS: HEPARIN SOD (PORCINE) 5,000 UNIT/ML 1 ML SYRINGE SUBCUT SCH ×3 (06:11→21:57)
[2017-12-23] MEDS: INSULIN LISPRO 100 UNIT/ML 3 ML VIAL SUBCUT PRN ×4 (08:23→22:06)
[2017-12-23 09:02] LABS: ARTERIAL BLOOD BASE EXCESS 8.5 mmol/L; ARTERIAL BLOOD H2CO3 1.62 mmol/L (1.05-1.35); ARTERIAL BLOOD HCO3 34.4 mmol/L (20-26); ARTERIAL BLOOD O2 SATURATION 97.5 % (94-98); ARTERIAL BLOOD PCO2 53.7 mmHg (35-45); ARTERIAL BLOOD PH 7.42 (7.35-7.45)
[2017-12-23 09:03] LABS: ARTERIAL BLOOD FIO2 2L
--- NOTE | 2017-12-23 11:01 | PDOC PROGRESS REPORT ---
Subjective Progress Note for:: 12/23/17 Subjective:: I seen and examined the patient at bedside. I found her propped up in bed and radiating to her breakfast. She reports restful night. She finished all her meal. Her blood pressure is also improving this morning it is 120/67. Reason For Visit: HYPOTENSION,HYPERCAPNIA Physical Exam Vital Signs: Temp Pulse Resp BP Pulse Ox 98.8 F 98 18 120/67 97 12/23/17 07:15 12/23/17 07:55 12/23/17 07:55 12/23/17 07:15 12/23/17 07:55 Intake & Output 12/22/17 12/23/17 12/24/17 06:59 06:59 06:59 Intake Total 388 Output Total 800 Balance -412 Weight 86.5 kg Results Laboratory Results: 12/23/17 04:13 12/23/17 04:13 12/23/17 12/23/17 12/23/17 04:13 04:13 04:13 WBC 4.3 RBC 2.60 L Hgb 8.8 L Hct 25.5 L MCV 98 H MCH 33.7 H MCHC 34.3 RDW 17.7 H Plt Count 155 Seg Neutrophils % 89.4 H Lymphocytes % 6.6 L Monocytes % 3.7 Eosinophils % 0.2 Basophils % 0.1 Absolute Neutrophils 3.9 Absolute Lymphocytes 0.3 L Absolute Monocytes 0.2 Absolute Eosinophils 0.0 Absolute Basophils 0.0 Carbonic Acid HCO3/H2CO3 Ratio ABG pH ABG pCO2 ABG pO2 ABG HCO3 ABG O2 Saturation ABG Base Excess FiO2 Sodium 141.1 Potassium 3.6 Chloride 97 L Carbon Dioxide 38 H Anion Gap 6 BUN 23 H Creatinine 0.95 Est GFR ( Amer) > 60 Est GFR (Non-Af Amer) 58 L Glucose 217 H Calcium 9.0 Magnesium 1.4 L TSH 0.69 12/23/17 08:40 WBC RBC Hgb Hct MCV MCH MCHC RDW Plt Count Seg Neutrophils % Lymphocytes % Monocytes % Eosinophils % Basophils % Absolute Neutrophils Absolute Lymphocytes Absolute Monocytes Absolute Eosinophils Absolute Basophils Carbonic Acid 1.62 H HCO3/H2CO3 Ratio 21:1 ABG pH 7.42 ABG pCO2 53.7 H ABG pO2 98.0 ABG HCO3 34.4 H ABG O2 Saturation 97.5 ABG Base Excess 8.5 FiO2 2L Sodium Potassium Chloride Carbon Dioxide Anion Gap BUN Creatinine Est GFR ( Amer) Est GFR (Non-Af Amer) Glucose Calcium Magnesium TSH Impressions: Chest X-Ray 12/22/17 16:19 IMPRESSION: COPD. No acute findings. Assessment & Plan - Diagnosis (1) Acute and chronic respiratory failure with hypercapnia Is this a current diagnosis for this admission?: Yes Plan: Patient has been started on BiPAP. And she is on Solu-Medrol DuoNeb and doxycycline This morning I saw her without BiPAP and she is saturating over 90%. (2) Chronic diastolic CHF (congestive heart failure) Is this a current diagnosis for this admission?: Yes Plan: Currently compensated. Continue her home medication. (3) Coronary artery disease Qualifiers: Coronary Disease-Associated Artery/Lesion type: [place] artery Is this a current diagnosis for this admission?: Yes Plan: Continue home medication (4) Diabetes Qualifiers: Diabetes mellitus type: type 2 Is this a current diagnosis for this admission?: Yes Plan: Has been started on sliding scale. Continue her current regimen. (5) MARY LOU (acute kidney injury) Is this a current diagnosis for this admission?: Yes Plan: Her kidney function is improving evidenced by her creatinine trending down from 1.48-0.95 and her GFR from 34-60. - Time Time Spent with patient: 25-34 minutes
[2017-12-23] MEDS: MIDODRINE HCL 5 MG TABLET PO SCH ×2 (12:00→13:53)
[2017-12-23] MEDS: MAGNESIUM SULFATE 1 GM/D5W 100 ML IV SCH ×2 (12:01→13:50)
[2017-12-23] MEDS ORDERED: METHYLPREDNISOLONE INJ 125 MG/2 ML SDV ONE (13:20)
[2017-12-23] MEDS: MAGNESIUM SULFATE/D5W 1 GM/100 ML RTUPB IV SCH ×2 (14:04→14:06)
[2017-12-23] MEDS: DOCUSATE SODIUM 100 MG CAPSULE PO SCH (18:25)
[2017-12-23] MEDS ORDERED: MAGNESIUM CITRATE 296 ML BOTTLE PO ONE (18:30)
[2017-12-23 19:09] LABS: URINE AMPHETAMINES SCREEN NEGATIVE; URINE BARBITURATES SCREEN NEGATIVE; URINE BENZODIAZEPINES SCREEN NEGATIVE; URINE COCAINE SCREEN NEGATIVE; URINE MARIJUANA (THC) SCREEN NEGATIVE; URINE METHADONE SCREEN NEGATIVE; URINE PHENCYCLIDINE SCREEN NEGATIVE
[2017-12-24] MEDS: IPRATROPIUM/ALBUTEROL 0.5-2.5 MG/3 ML AMPUL NEB SCH ×7 (04:10→23:56)
[2017-12-24 05:35] LABS: ABSOLUTE LYMPHOCYTES (AUTO) 0.4 10^3/uL (0.5-4.7); ABSOLUTE MONOCYTES (AUTO) 0.5 10^3/uL (0.1-1.4); ABSOLUTE NEUT (AUTO) 5.4 10^3/uL (1.7-8.2); BASOPHILS % (AUTO) 0.3 % (0-2); HEMATOCRIT 24.6 % (36.0-47.0); HEMOGLOBIN 8.5 g/dL (12.0-15.5); MEAN CORPUSCULAR HEMOGLOBIN 33.5 pg (27.0-33.4); MEAN CORPUSCULAR HGB CONC 34.6 g/dL (32.0-36.0); MEAN CORPUSCULAR VOLUME 97 fl (80-97); MONOCYTES % (AUTO) 8.4 % (3-13); PLATELET COUNT 167 10^3/uL (150-450); RED BLOOD COUNT 2.54 10^6/uL (3.72-5.28); RED CELL DISTRIBUTION WIDTH 17.1 % (11.5-14.0); SEGMENTED NEUTROPHILS % (AUTO) 85.3 % (42-78); TOTAL CELLS COUNTED % (AUTO) 100 %; WHITE BLOOD COUNT 6.3 10^3/uL (4.0-10.5)
[2017-12-24] MEDS: METHYLPREDNISOLONE INJ 40 MG/1 ML SDV IV SCH ×3 (06:00→21:39)
[2017-12-24] MEDS: HEPARIN SOD (PORCINE) 5,000 UNIT/ML 1 ML SYRINGE SUBCUT SCH ×3 (06:00→21:39)
[2017-12-24 06:01] LABS: ANION GAP 7 (5-19); BLOOD UREA NITROGEN 25 mg/dL (7-20); CALCIUM 8.9 mg/dL (8.4-10.2); CARBON DIOXIDE 39 mmol/L (22-30); CHLORIDE 92 mmol/L (98-107); GLUCOSE 264 mg/dL (75-110); POTASSIUM 4.4 mmol/L (3.6-5.0); SODIUM 138.2 mmol/L (137-145)
[2017-12-24] MEDS: DOXYCYCLINE HYCLATE 100 MG in DEXTROSE 5%-WATER 250 ML IV SCH ×2 (06:01→17:22)
[2017-12-24] MEDS: INSULIN LISPRO 100 UNIT/ML 3 ML VIAL SUBCUT PRN ×2 (07:42→14:02)
[2017-12-24] MEDS ORDERED: TRAMADOL HCL 50 MG TABLET PO PRN (08:22)
[2017-12-24] MEDS ORDERED: (PENDING PHARMACY ID) (Metformin Hcl [Metformin Hcl Er] 500 MG) PO SCH (10:00)
[2017-12-24] MEDS: DOCUSATE SODIUM 100 MG CAPSULE PO SCH ×2 (10:24→17:21)
[2017-12-24] MEDS: MAGNESIUM OXIDE 400 MG TABLET PO SCH (10:24)
[2017-12-24] MEDS: LISINOPRIL 5 MG TABLET PO SCH (10:24)
[2017-12-24] MEDS: CARVEDILOL 6.25 MG TABLET PO SCH ×2 (10:25→21:38)
[2017-12-24] MEDS: METFORMIN HCL 500 MG TABLET PO SCH ×2 (10:25→17:21)
[2017-12-24] MEDS: GLIMEPIRIDE 1 MG TABLET PO SCH (10:25)
[2017-12-24] MEDS: FUROSEMIDE 40 MG TABLET PO SCH ×2 (10:25→21:39)
[2017-12-24] MEDS: TIOTROPIUM BROMIDE DPI 5 CAP/KIT (18 MCG/CAP) IH SCH (10:26)
[2017-12-24] MEDS: BUDESONIDE/FORMOTEROL 160-4.5 MCG 60 PUFF/6 GM MDI IH SCH ×2 (10:26→21:38)
--- NOTE | 2017-12-24 10:31 | PDOC PROGRESS REPORT ---
Subjective Progress Note for:: 12/24/17 Subjective:: Today patient's more awake alert and conversant. States she has mild distress otherwise she has marked improvement with regard to her breathing. She is eating well and tolerating well. She moved her bowels twice after she was given magnesium citrate yesterday. Reason For Visit: HYPOTENSION,HYPERCAPNIA Physical Exam Vital Signs: Temp Pulse Resp BP Pulse Ox 98.4 F 94 18 137/75 H 98 12/24/17 07:33 12/24/17 07:56 12/24/17 07:56 12/24/17 07:33 12/24/17 07:56 Intake & Output 12/23/17 12/24/17 12/25/17 06:59 06:59 06:59 Intake Total 388 2013 Output Total 800 1350 Balance -412 663 Weight 86.5 kg 88.4 kg General appearance: PRESENT: no acute distress, well-developed, well-nourished Head exam: PRESENT: atraumatic, normocephalic Eye exam: PRESENT: conjunctiva pink, EOMI, PERRLA. ABSENT: scleral icterus Respiratory exam: PRESENT: rhonchi - She has occasional rhonchi and wheezing, wheezes Cardiovascular exam: PRESENT: RRR. ABSENT: diastolic murmur, rubs, systolic murmur GI/Abdominal exam: PRESENT: normal bowel sounds, soft. ABSENT: distended, guarding, mass, organolmegaly, rebound, tenderness Neurological exam: PRESENT: alert, awake, oriented to person, oriented to place , oriented to time, oriented to situation, CN II-XII grossly intact. ABSENT: motor sensory deficit Psychiatric exam: PRESENT: appropriate affect, normal mood. ABSENT: homicidal ideation, suicidal ideation Results Laboratory Results: 12/24/17 04:36 12/24/17 04:36 12/24/17 12/24/17 04:36 04:36 WBC 6.3 RBC 2.54 L Hgb 8.5 L Hct 24.6 L MCV 97 MCH 33.5 H MCHC 34.6 RDW 17.1 H Plt Count 167 Seg Neutrophils % 85.3 H Lymphocytes % 6.0 L Monocytes % 8.4 Eosinophils % 0.0 Basophils % 0.3 Absolute Neutrophils 5.4 Absolute Lymphocytes 0.4 L Absolute Monocytes 0.5 Absolute Eosinophils 0.0 Absolute Basophils 0.0 Sodium 138.2 Potassium 4.4 Chloride 92 L Carbon Dioxide 39 H Anion Gap 7 BUN 25 H Creatinine 0.84 Est GFR ( Amer) > 60 Est GFR (Non-Af Amer) > 60 Glucose 264 H Calcium 8.9 Magnesium 2.1 Impressions: Chest X-Ray 12/22/17 16:19 IMPRESSION: COPD. No acute findings. Assessment & Plan - Diagnosis (1) Acute and chronic respiratory failure with hypercapnia Is this a current diagnosis for this admission?: Yes Plan: Patient has been started on BiPAP. And she is on Solu-Medrol DuoNeb and doxycycline Patient has been doing well, her ABGs improving. I added Symbicort and Spiriva to her regimen. (2) Chronic diastolic CHF (congestive heart failure) Is this a current diagnosis for this admission?: Yes Plan: Currently compensated. Continue her home medication. (3) Coronary artery disease Qualifiers: Coronary Disease-Associated Artery/Lesion type: [place] artery Is this a current diagnosis for this admission?: Yes Plan: Continue home medication (4) Diabetes Qualifiers: Diabetes mellitus type: type 2 Is this a current diagnosis for this admission?: Yes Plan: Has been started on sliding scale. Continue her current regimen. (5) MARY LOU (acute kidney injury) Is this a current diagnosis for this admission?: Yes Plan: Resolved. - Time Time Spent with patient: 25-34 minutes
[2017-12-25] MEDS: IPRATROPIUM/ALBUTEROL 0.5-2.5 MG/3 ML AMPUL NEB SCH ×6 (04:23→23:32)
[2017-12-25 05:11] LABS: ABSOLUTE LYMPHOCYTES (AUTO) 0.5 10^3/uL (0.5-4.7); ABSOLUTE MONOCYTES (AUTO) 0.5 10^3/uL (0.1-1.4); ABSOLUTE NEUT (AUTO) 6.6 10^3/uL (1.7-8.2); BASOPHILS % (AUTO) 0.3 % (0-2); EOSINOPHILS % (AUTO) 0.2 % (0-6); HEMATOCRIT 26.2 % (36.0-47.0); LYMPHOCYTES % (AUTO) 6.5 % (13-45); MEAN CORPUSCULAR HEMOGLOBIN 33.5 pg (27.0-33.4); MEAN CORPUSCULAR HGB CONC 34.5 g/dL (32.0-36.0); MEAN CORPUSCULAR VOLUME 97 fl (80-97); RED CELL DISTRIBUTION WIDTH 17.5 % (11.5-14.0); TOTAL CELLS COUNTED % (AUTO) 100 %; WHITE BLOOD COUNT 7.5 10^3/uL (4.0-10.5)
[2017-12-25 05:32] LABS: PLATELET COUNT 162 10^3/uL (150-450)
[2017-12-25 05:34] LABS: BLOOD UREA NITROGEN 35 mg/dL (7-20); CALCIUM 8.9 mg/dL (8.4-10.2); CHLORIDE 96 mmol/L (98-107); GLUCOSE 110 mg/dL (75-110); POTASSIUM 4.1 mmol/L (3.6-5.0); SODIUM 144.4 mmol/L (137-145)
[2017-12-25 05:45] LABS: ANION GAP 7 (5-19)
[2017-12-25 05:48] LABS: CARBON DIOXIDE 41 mmol/L (22-30)
[2017-12-25] MEDS: HEPARIN SOD (PORCINE) 5,000 UNIT/ML 1 ML SYRINGE SUBCUT SCH ×3 (06:21→21:16)
[2017-12-25] MEDS: LEVOTHYROXINE SODIUM 0.088 MG TABLET PO SCH (06:21)
[2017-12-25] MEDS: DOXYCYCLINE HYCLATE 100 MG in DEXTROSE 5%-WATER 250 ML IV SCH ×2 (06:21→17:30)
[2017-12-25] MEDS: METHYLPREDNISOLONE INJ 40 MG/1 ML SDV IV SCH ×3 (06:21→21:16)
[2017-12-25 06:59] LABS: ARTERIAL BLOOD BASE EXCESS 13.2 mmol/L; ARTERIAL BLOOD H2CO3 1.67 mmol/L (1.05-1.35); ARTERIAL BLOOD HCO3 38.9 mmol/L (20-26); ARTERIAL BLOOD O2 SATURATION 99.1 % (94-98); ARTERIAL BLOOD PCO2 55.5 mmHg (35-45); ARTERIAL BLOOD PH 7.46 (7.35-7.45); ARTERIAL BLOOD PO2 159.1 mmHg (80-100); ARTERIAL BLOOD TOTAL CO2 40.6 mmol/L (21-25)
[2017-12-25 07:00] LABS: ARTERIAL BLOOD FIO2 40%
[2017-12-25] MEDS: DOCUSATE SODIUM 100 MG CAPSULE PO SCH ×2 (10:47→17:30)
[2017-12-25] MEDS: MAGNESIUM OXIDE 400 MG TABLET PO SCH (10:48)
[2017-12-25] MEDS: GLIMEPIRIDE 1 MG TABLET PO SCH (10:48)
[2017-12-25] MEDS: CARVEDILOL 6.25 MG TABLET PO SCH ×2 (10:48→21:17)
[2017-12-25] MEDS: FUROSEMIDE 40 MG TABLET PO SCH (10:48)
[2017-12-25] MEDS: METFORMIN HCL 500 MG TABLET PO SCH ×2 (10:48→17:30)
[2017-12-25] MEDS: LISINOPRIL 5 MG TABLET PO SCH (10:48)
[2017-12-25] MEDS: BUDESONIDE/FORMOTEROL 160-4.5 MCG 60 PUFF/6 GM MDI IH SCH ×2 (10:49→21:17)
[2017-12-25] MEDS: TIOTROPIUM BROMIDE DPI 5 CAP/KIT (18 MCG/CAP) IH SCH (10:49)
--- NOTE | 2017-12-25 12:47 | PDOC PROGRESS REPORT ---
Subjective Progress Note for:: 12/25/17 Subjective:: I seen patient awake alert and oriented. She complains of nausea. Shortness of breath is improving. The patient and her family member request if she can have CPAP at home. [facility] consulted for possible sleep study to check if she qualifies for CPAP. Reason For Visit: HYPOTENSION,HYPERCAPNIA Physical Exam Vital Signs: Temp Pulse Resp BP Pulse Ox 97.5 F 95 19 139/76 H 100 12/25/17 11:08 12/25/17 11:08 12/25/17 11:08 12/25/17 11:08 12/25/17 11:08 Intake & Output 12/24/17 12/25/17 12/26/17 06:59 06:59 06:59 Intake Total 2012 1073 591 Output Total 1350 275 Balance 663 798 591 Weight 88.4 kg 90.3 kg General appearance: PRESENT: no acute distress, well-developed, well-nourished Head exam: PRESENT: atraumatic, normocephalic Eye exam: PRESENT: conjunctiva pink, EOMI, PERRLA. ABSENT: scleral icterus Respiratory exam: PRESENT: decreased breath sounds, wheezes - At the lung bases Cardiovascular exam: PRESENT: RRR. ABSENT: diastolic murmur, rubs, systolic murmur GI/Abdominal exam: PRESENT: normal bowel sounds, soft. ABSENT: distended, guarding, mass, organolmegaly, rebound, tenderness Neurological exam: PRESENT: alert, awake, oriented to person, oriented to place , oriented to time, oriented to situation, CN II-XII grossly intact. ABSENT: motor sensory deficit Psychiatric exam: PRESENT: appropriate affect, normal mood. ABSENT: homicidal ideation, suicidal ideation Results Laboratory Results: 12/25/17 03:58 12/25/17 03:58 12/25/17 12/25/17 12/25/17 03:58 03:58 06:42 WBC 7.5 RBC 2.70 L Hgb 9.0 L Hct 26.2 L MCV 97 MCH 33.5 H MCHC 34.5 RDW 17.5 H Plt Count 162 Seg Neutrophils % 87.0 H Lymphocytes % 6.5 L Monocytes % 6.0 Eosinophils % 0.2 Basophils % 0.3 Absolute Neutrophils 6.6 Absolute Lymphocytes 0.5 Absolute Monocytes 0.5 Absolute Eosinophils 0.0 Absolute Basophils 0.0 Carbonic Acid 1.67 H HCO3/H2CO3 Ratio 23:1 ABG pH 7.46 H ABG pCO2 55.5 H ABG pO2 159.1 H ABG HCO3 38.9 H ABG O2 Saturation 99.1 H ABG Base Excess 13.2 FiO2 40% Sodium 144.4 Potassium 4.1 Chloride 96 L Carbon Dioxide 41 H* Anion Gap 7 BUN 35 H Creatinine 0.81 Est GFR ( Amer) > 60 Est GFR (Non-Af Amer) > 60 Glucose 110 Calcium 8.9 Impressions: Chest X-Ray 12/22/17 16:19 IMPRESSION: COPD. No acute findings. Assessment & Plan - Diagnosis (1) Acute and chronic respiratory failure with hypercapnia Is this a current diagnosis for this admission?: Yes Plan: Continue current regimen (2) Chronic diastolic CHF (congestive heart failure) Is this a current diagnosis for this admission?: Yes Plan: Currently compensated. Continue her home medication. (3) Coronary artery disease Qualifiers: Coronary Disease-Associated Artery/Lesion type: [place] artery Is this a current diagnosis for this admission?: Yes Plan: Continue home medication (4) Diabetes Qualifiers: Diabetes mellitus type: type 2 Is this a current diagnosis for this admission?: Yes Plan: Has been started on sliding scale. Continue her current regimen. (5) MARY LOU (acute kidney injury) Is this a current diagnosis for this admission?: Yes Plan: Resolved. (6) Metabolic alkalosis Is this a current diagnosis for this admission?: Yes Plan: May be related to overdiuresis. I cut her Lasix by half - Time Time Spent with patient: 25-34 minutes
[2017-12-25] MEDS: INSULIN LISPRO 100 UNIT/ML 3 ML VIAL SUBCUT PRN (13:39)
[2017-12-25] MEDS: PROMETHAZINE HCL 25 MG TABLET PO PRN (19:17)
[2017-12-26] MEDS: IPRATROPIUM/ALBUTEROL 0.5-2.5 MG/3 ML AMPUL NEB SCH ×3 (04:11→11:48)
[2017-12-26] MEDS: DOXYCYCLINE HYCLATE 100 MG in DEXTROSE 5%-WATER 250 ML IV SCH (06:12)
[2017-12-26] MEDS: HEPARIN SOD (PORCINE) 5,000 UNIT/ML 1 ML SYRINGE SUBCUT SCH (06:12)
[2017-12-26] MEDS: LEVOTHYROXINE SODIUM 0.088 MG TABLET PO SCH (06:12)
[2017-12-26] MEDS: METHYLPREDNISOLONE INJ 40 MG/1 ML SDV IV SCH (06:12)
--- NOTE | 2017-12-26 08:05 | PDOC DISCHARGE SUMMARY ---
General - Admit/Disc Date/PCP Admission Date/Primary Care Provider: 12/22/17 18:19 ARASELI AGUILAR MD Discharge Date: 12/26/17 - Discharge Diagnosis (1) Acute and chronic respiratory failure with hypercapnia Is this a current diagnosis for this admission?: Yes (2) Chronic diastolic CHF (congestive heart failure) Is this a current diagnosis for this admission?: Yes (3) Coronary artery disease Is this a current diagnosis for this admission?: Yes (4) Diabetes Is this a current diagnosis for this admission?: Yes (5) MARY LOU (acute kidney injury) Is this a current diagnosis for this admission?: Yes (6) Metabolic alkalosis Is this a current diagnosis for this admission?: Yes - Additional Information Resuscitation Status: Full Code Discharge Diet: Cardiac, Diabetic Discharge Activity: Activity As Tolerated Prescriptions: Doxycycline Hyclate 100 mg PO Q12 #8 capsule Prednisone 40 mg PO DAILY #5 tablet Home Medications: Amlodipine Besylate [Norvasc 2.5 mg Tablet] 2.5 mg PO DAILY 12/23/17 Carvedilol [Coreg 6.25 mg Tablet] 6.25 mg PO Q12 12/23/17 Furosemide [Lasix 40 mg Tablet] 40 mg PO Q12 12/23/17 Glimepiride [Amaryl 1 mg Tablet] 1 mg PO DAILY 12/23/17 Ipratropium/Albuterol Sulfate [Iprat-Albut 0.5-3(2.5) mg/3 ml] 1 vial IH Q4HWA 12/23/17 Levothyroxine Sodium [Synthroid 0.088 mg Tablet] 88 mcg PO DAILY 12/23/17 Lisinopril [Prinivil 5 mg Tablet] 5 mg PO DAILY 12/23/17 Magnesium Oxide [Mag-Ox 400 mg Tablet] 400 mg PO DAILY 12/23/17 Metformin HCl [Metformin HCl ER] 500 mg PO BID 12/23/17 Pantoprazole Sodium [Protonix] 40 mg PO DAILY 12/23/17 Tramadol HCl [Ultram 50 mg Tablet] 50 mg PO Q12HP PRN 12/23/17 Doxycycline Hyclate 100 mg PO Q12 #8 capsule 12/26/17 Prednisone 40 mg PO DAILY #5 tablet 12/26/17 History of Present Illness History of Present Illness: TRENTON MCCOY is a 72 year old female patient with multiple comorbidities eluding CHF, CAD, HTN, DM, hypothyroidism, dementia, COPD and depression. Today patient was brought by EMS for low blood pressure and shortness of breath. Since patient is somewhat sedated underlying dementia and she is on BiPAP with full facemask she is not source of history I got brief history from the ER attending note and reviewing previous charts. Patient seen at ER with blood pressure in the systolic of 70s for which she was bolused with 2 L of normal saline and she was put on BiPAP for her shortness of breath. 3 days ago patient was seen in ER for shortness of breath and patient was offered admission but she declined and went home. Of note, patient is frequent flyer and she has been to [facility] about 15 times already in 2017. Her blood works are unremarkable except for CKD with creatinine of 1.48 and GFR of 35. Further detailed history and review of systems unobtainable Hospital Course Hospital Course: This is a 72 years old female patient with multiple comorbidities presented to with chief complaint of shortness of breath and patient also found to be hypotensive for which she was bolused 2 L while she was in ER.. Patient has been managed for COPD exacerbation with doxycycline, Solu-Medrol, bronchodilators and she has been doing well. Patient may have also obstructive sleep apnea so she needs CPAP after evaluated by manager pediatric as outpatient for pulmonary function test. This morning I seen patient while she is resting in bed comfortably states she has mild distress but she is much better than before admission. Her vital signs within normal limits and she is saturating at 100% while she is on 3 L of oxygen via nasal cannula. I will continue all her home medication and added for her doxycycline 100 mg twice daily for 4 days and prednisone 40 mg p.o. daily for 5 days. Physical Exam Vital Signs: Temp Pulse Resp BP Pulse Ox 97.4 F 90 19 139/68 H 100 12/26/17 04:04 12/26/17 07:00 12/26/17 04:11 12/26/17 04:04 12/26/17 04:11 Intake & Output 12/25/17 12/26/17 12/27/17 06:59 06:59 06:59 Intake Total 1073 1562 Output Total 275 Balance 798 1562 Weight 90.3 kg 93 kg General appearance: PRESENT: mild distress Head exam: PRESENT: atraumatic, normocephalic Ear exam: PRESENT: normal external ear exam Neck exam: ABSENT: carotid bruit, JVD, lymphadenopathy, thyromegaly Respiratory exam: PRESENT: wheezes - Mild occasional Cardiovascular exam: PRESENT: RRR. ABSENT: diastolic murmur, rubs, systolic murmur GI/Abdominal exam: PRESENT: normal bowel sounds, soft. ABSENT: distended, guarding, mass, organolmegaly, rebound, tenderness Neurological exam: PRESENT: alert, awake, oriented to person, oriented to place , oriented to time, oriented to situation, CN II-XII grossly intact. ABSENT: motor sensory deficit Psychiatric exam: PRESENT: appropriate affect, normal mood. ABSENT: homicidal ideation, suicidal ideation Results Laboratory Results: 12/25/17 03:58 12/25/17 03:58 Impressions: Chest X-Ray 12/22/17 16:19 IMPRESSION: COPD. No acute findings. Qualifiers - * PATIENT BEING DISCHARGED WITH ANY OF THE FOLLOWING DIAGNOSIS: Heart Failure VTE patient discharged on overlapping Therapy?: No Reason(s) for not prescribing Overlap Therapy:: Not indicated Stroke Pt being discharged on Anti-thrombolytic therapy?: No Reason(s) for not prescribing Anti-thrombolytic therapy:: Not indicated Stroke Pt being discharged on Anti-coagulation therapy?: No Reason(s) for not prescribing Anti-coagulation therapy:: Not indicated Stroke Pt being discharged on Statins?: No Reason(s) for not prescribing Statins therapy:: Not indicated SD Pt being discharged on Aspirin therapy?: No Reason(s) for not prescribing Aspirin therapy:: Not indicated SD Pt being discharged on Statins?: No Reason(s) for not prescribing Statin therapy:: Not indicated SD Pt discharged ACEI/ARBS?: No Reason(s) for not prescribing ACEI/ARBS:: Not indicated HF Pt being discharged on ACEI for LVEF less than 40%?: Yes HF Pt being discharged on ARBS for LVEF less than 40%?: Yes HF Pt with Afib discharged with Warfarin?: No Reason(s) for not prescribing Warfarin:: Not indicated HF Pt discharged on evidence-based Beta Patty:: Yes
[2017-12-26] MEDS: INSULIN LISPRO 100 UNIT/ML 3 ML VIAL SUBCUT PRN ×2 (08:14→12:54)
[2017-12-26] MEDS: CARVEDILOL 6.25 MG TABLET PO SCH (09:47)
[2017-12-26] MEDS: DOCUSATE SODIUM 100 MG CAPSULE PO SCH (09:48)
[2017-12-26] MEDS: LISINOPRIL 5 MG TABLET PO SCH (09:48)
[2017-12-26] MEDS: GLIMEPIRIDE 1 MG TABLET PO SCH (09:48)
[2017-12-26] MEDS: MAGNESIUM OXIDE 400 MG TABLET PO SCH (09:49)
[2017-12-26] MEDS: METFORMIN HCL 500 MG TABLET PO SCH (09:49)
[2017-12-26] MEDS: PROMETHAZINE HCL 25 MG TABLET PO PRN (09:52)
[2017-12-26] MEDS: BUDESONIDE/FORMOTEROL 160-4.5 MCG 60 PUFF/6 GM MDI IH SCH (09:52)
[2017-12-26] MEDS: TIOTROPIUM BROMIDE DPI 5 CAP/KIT (18 MCG/CAP) IH SCH (09:53)
[2017-12-26] MEDS ORDERED: FUROSEMIDE 40 MG TABLET PO SCH (10:00)
--- NOTE | 2017-12-26 12:02 | PDOC CONSULTATION ---
Consultation Consult Date: 12/26/17 Attending physician:: MANJU MEADE History of Present Illness Admission Date/PCP: 12/22/17 18:19 ARASELI AGUILAR MD History of Present Illness: TRENTON MCCOY is a 72 year old female,well-known to [place] [facility] with acute on chronic hypercapnic hypoxemic respiratory failure presented with a cough confusion this is apparently resolved denies hemoptysis nausea vomiting fevers chills runny nose sore throat chest pain but admits to chronic edema. She improved in the hospital with use of BiPAP and is currently seeking BiPAP for home use. Past Medical History Cardiac Medical History: Reports: Congestive Heart Failure, Coronary Artery Disease, Myocardial Infarction, Hypertension Denies: DVT, Hyperlipidema, Pulmonary Embolism Pulmonary Medical History: Reports: Asthma, Bronchitis, Chronic Obstructive Pulmonary Disease (COPD) - 2 L nasal home oxygen, Pneumonia, Respiratory Failure - Chronic respiratory failure Denies: Sleep Apnea, Tuberculosis Neurological Medical History: Denies: Seizures Endocrine Medical History: Reports: Diabetes Mellitus Type 2, Hypothyroidism Denies: Diabetes Mellitus Type 1, Hyperthyroidism Renal/ Medical History: Denies: End Stage Renal Disease Malignancy Medical History: Reports: Brain Cancer - Lung cancer with brain metastases, 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 GI Medical History: Reports: Gastroesophageal Reflux Disease Denies: Cirrhosis, Hepatitis Musculoskeltal Medical History: Reports: Arthritis Psychiatric Medical History: Reports: Dementia, Depression Denies: Bipolar Disorder Hematology: Reports: Anemia, Bleeding Tendencies Infectious Medical History: Reports: Clostridium Difficile Past Surgical History Past Surgical History: Reports: Cholecystectomy, Orthopedic Surgery - Foot surgery, Other - cataract bilateral Social History Information Source: Patient, [facility], [facility] Records Smoking Status: Former Smoker Cigarettes Packs Per Day: 1.5 Last Time Smoked: approx 40 years ago Passive smoke exposure as: Both Frequency of Alcohol Use: None Hx Recreational Drug Use: No Drugs: None Hx Prescription Drug Abuse: No Do you have pets?: No Have you had any respiratory illnesses as a child?: No Have you been exposed to any sick contacts recently?: No Have you travelled outside of [place] in the past 12 months?: No - Advance Directive Resuscitation Status: Full Code Family History Family History: COPD, Malignancy - Lung cancer Parental Family History Reviewed: Yes Children Family History Reviewed: Yes Sibling(s) Family History Reviewed.: Yes Medication/Allergy Home Medications: Amlodipine Besylate [Norvasc 2.5 mg Tablet] 2.5 mg PO DAILY 12/23/17 Carvedilol [Coreg 6.25 mg Tablet] 6.25 mg PO Q12 12/23/17 Furosemide [Lasix 40 mg Tablet] 40 mg PO Q12 12/23/17 Glimepiride [Amaryl 1 mg Tablet] 1 mg PO DAILY 12/23/17 Ipratropium/Albuterol Sulfate [Iprat-Albut 0.5-3(2.5) mg/3 ml] 1 vial IH Q4HWA 12/23/17 Levothyroxine Sodium [Synthroid 0.088 mg Tablet] 88 mcg PO DAILY 12/23/17 Lisinopril [Prinivil 5 mg Tablet] 5 mg PO DAILY 12/23/17 Magnesium Oxide [Mag-Ox 400 mg Tablet] 400 mg PO DAILY 12/23/17 Metformin HCl [Metformin HCl ER] 500 mg PO BID 12/23/17 Pantoprazole Sodium [Protonix] 40 mg PO DAILY 12/23/17 Tramadol HCl [Ultram 50 mg Tablet] 50 mg PO Q12HP PRN 12/23/17 Doxycycline Hyclate 100 mg PO Q12 #8 capsule 12/26/17 Prednisone 40 mg PO DAILY #5 tablet 12/26/17 Allergies/Adverse Reactions: azithromycin Allergy (Verified 12/22/17 14:19) amoxicillin [Amoxicillin] Adverse Reaction (Verified 12/22/17 14:19) visual hallucinations erythromycin base [Erythromycin Base] Adverse Reaction (Verified 12/22/17 14:19) visual hallucinations Potassium Clavulanate * [From Augmentin] Adverse Reaction (Verified 12/22/17 14: 19) visual hallucinations Review of Systems Constitutional: ABSENT: chills, fever(s), headache(s), night sweats Eyes: ABSENT: visual disturbances Ears: ABSENT: hearing changes Nose, Mouth, and Throat: ABSENT: mouth pain Cardiovascular: ABSENT: chest pain, palpitations Respiratory: ABSENT: hemoptysis Gastrointestinal: ABSENT: abdominal pain, bloating, coffee ground emesis, dysphagia, hematemesis, hematochezia, melena Genitourinary: ABSENT: dysuria, hematuria Musculoskeletal: ABSENT: deformity Integumentary: ABSENT: pruritus, rash Neurological: ABSENT: abnormal movements, confusion, convulsions, focal weakness Psychiatric: ABSENT: hallucinations, homidical ideation, suicidal ideation Endocrine: ABSENT: cold intolerance, heat intolerance Hematologic/Lymphatic: PRESENT: easy bruising Physical Exam Vital Signs: Temp Pulse Resp BP Pulse Ox 98.4 F 84 18 141/70 H 100 12/26/17 07:49 12/26/17 08:21 12/26/17 08:21 12/26/17 07:49 12/26/17 08:21 Intake & Output 12/25/17 12/26/17 12/27/17 06:59 06:59 06:59 Intake Total 1073 1562 Output Total 275 Balance 798 1562 Weight 90.3 kg 93 kg General appearance: PRESENT: no acute distress, cooperative, disheveled, obese Head exam: PRESENT: atraumatic, normocephalic Eye exam: PRESENT: conjunctiva pale, EOMI. ABSENT: nystagmus, periorbital swelling, scleral icterus Mouth exam: PRESENT: moist, neck supple, tongue midline Neck exam: ABSENT: carotid bruit, JVD, lymphadenopathy, thyromegaly, tracheal deviation, tracheostomy Respiratory exam: PRESENT: decreased breath sounds, prolonged expiratory phas, rales, rhonchi, unlabored. ABSENT: retraction, stridor, tachypnea Cardiovascular exam: PRESENT: RRR, +S1, +S2 Pulses: PRESENT: normal radial pulses GI/Abdominal exam: PRESENT: normal bowel sounds, soft Extremities exam: PRESENT: full ROM. ABSENT: calf tenderness, clubbing, joint swelling Musculoskeletal exam: PRESENT: full ROM. ABSENT: deformity, dislocation Neurological exam: PRESENT: alert, awake Psychiatric exam: PRESENT: normal mood Skin exam: PRESENT: dry, warm Results Laboratory Results: 12/25/17 03:58 12/25/17 03:58 Impressions: Chest X-Ray 12/22/17 16:19 IMPRESSION: COPD. No acute findings. Assessment & Plan - Diagnosis (1) Hypercapnia Is this a current diagnosis for this admission?: Yes Plan: Labs- All tests 24 hr 12/22/17 12/23/17 12/25/17 15:20 08:40 06:42 ABG pCO2 53.7 H 55.5 H VBG pCO2 72.6 H* (2) Acute and chronic respiratory failure with hypercapnia Is this a current diagnosis for this admission?: Yes Plan: The above patient has failed BiPAP. This patient would benefit from noninvasive mechanical ventilation via the trilogy AVAPS/AE and faster responding AVAPS rates. The trilogy is able to provide a target tidal volume and also adjusting the EPAP pressures to maintain a patent airway as well as an oral backup rate this machine will help improve PaCO2 levels. The severity of the patient's condition will lead to future hospitalizations and readmissions as well as life-threatening situations without the use of this device trilogy home vent needed for hypercapnic respiratory failure. [facility] or [facility] to follow for trilogy set up. (3) Acute on chronic diastolic (congestive) heart failure Is this a current diagnosis for this admission?: Yes
[2017-12-26 13:36] VITALS: BP 111/53
--- NOTE | 2017-12-26 16:30 | Pulmonary Function Test ---
Pulmonary Function Test Date of Procedure:: 12/26/17 INDICATION:: Dyspnea Referring Provider: Dr. Edward Contreras Od Grinder Operator: Kenn Sharp - Report Spirometry: FVC 1.10 L 38% FEV1 0.52 L 25% FEV1/FVC % 47 predicted 77 FEF 25-75% 0.39 21% Impression: Severe obstructive ventilatory defect .Decrease in FVC implies there may be a restrictive ventilatory defect. Restrictive defects cannot be diagnosed based on spirometry alone. (Restrictive defects may mask the degree of obstruction) .If clinically indicated complete pulmonary function test would be warranted.
== END 2017-12-26 14:55 | disposition home or self-care (01) | DRG 190 ==
LOC: ER 13:36 → EH 18:19 → 3N 21:11
PROVIDERS: ADMIT Internal Medicine; ATTEND Internal Medicine
PROC: 5A09357 Assistance with Respiratory Ventilation, Less than 24 Consecutive Hours, Continuous Positive Airway Pressure (ICD-10-PCS; principal; 2017-12-22)
PROC: 3E0F73Z Introduction of Anti-inflammatory into Respiratory Tract, Via Natural or Artificial Opening (ICD-10-PCS; 2017-12-22)
DX: J44.1 Chronic obstructive pulmonary disease with (acute) exacerbation (principal); J96.22 Acute and chronic respiratory failure with hypercapnia; J96.21 Acute and chronic respiratory failure with hypoxia; I50.32 Chronic diastolic (congestive) heart failure; N17.9 Acute kidney failure, unspecified; C34.90 Malignant neoplasm of unspecified part of unspecified bronchus or lung; C79.31 Secondary malignant neoplasm of brain; I25.10 Atherosclerotic heart disease of native coronary artery without angina pectoris; E11.9 Type 2 diabetes mellitus without complications; Z79.899 Other long term (current) drug therapy; I11.0 Hypertensive heart disease with heart failure; E03.9 Hypothyroidism, unspecified; F03.90 Unspecified dementia, unspecified severity, without behavioral disturbance, psychotic disturbance, mood disturbance, and anxiety; F32.9 Major depressive disorder, single episode, unspecified; K21.9 Gastro-esophageal reflux disease without esophagitis; M19.90 Unspecified osteoarthritis, unspecified site; I25.2 Old myocardial infarction; Z99.81 Dependence on supplemental oxygen; Z90.49 Acquired absence of other specified parts of digestive tract; Z98.42 Cataract extraction status, left eye; Z98.41 Cataract extraction status, right eye; Z87.891 Personal history of nicotine dependence; Z88.1 Allergy status to other antibiotic agents; Z88.3 Allergy status to other anti-infective agents; Z88.8 Allergy status to other drugs, medicaments and biological substances; Z80.1 Family history of malignant neoplasm of trachea, bronchus and lung; Z83.6 Family history of other diseases of the respiratory system
CPT/HCPCS: 36415; 51702; 71045; 71046; 80048; 80053; 80307; 81001; 82533; 82550; 82553; 82803; 82962; 83036; 83605; 83735; 83880; 84443; 84484; 85025; 85610; 87040; 87086; 93005; 93010; 94010; 94640; 94660; 96361; 96374; 99291; J1644; J1815; J2920; J3475; J3490; J7030; J7060; J7620

== ENCOUNTER 2018-01-07 23:45 | Inpatient (IN) | payer MEDICARE, OTHER ==
[2018-01-07] MEDS ORDERED: NORMAL SALINE 1000 ML 1,000 ML IV ONE (23:49)
--- NOTE | 2018-01-07 23:53 | ER Document Report ---
ED General - General Mode of Arrival: Medic Information source: Patient, Emergency Med Personnel TRAVEL OUTSIDE OF THE [place] IN LAST 30 DAYS: No <MALCOLM LEGGETT - Last Filed: 01/08/18 01:40> <CAROLE ABEBE - Last Filed: 01/08/18 06:24> - General Stated Complaint: RESPIRATORY DISTRESS Time Seen by Provider: 01/07/18 23:48 Notes: 72 y.o. female with heart failure, CAD, DM, COPD, depression and underlying dementia presents to the ED via EMS with trouble breathing for the past 2 days that is worsening. Pt was admitted here on 12/22/17 for bronchitis and was recently discharged home. (MALCOLM LEGGETT) - Related Data Allergies/Adverse Reactions: azithromycin Allergy (Verified 01/08/18 00:10) amoxicillin [Amoxicillin] Adverse Reaction (Verified 01/08/18 00:10) visual hallucinations erythromycin base [Erythromycin Base] Adverse Reaction (Verified 01/08/18 00:10) visual hallucinations Potassium Clavulanate * [From Augmentin] Adverse Reaction (Verified 01/08/18 00: 10) visual hallucinations Past Medical History - General Information source: Patient - Social History Family History: COPD, Malignancy - Lung cancer - Past Medical History Cardiac Medical History: Reports: Hx Congestive Heart Failure, Hx Coronary Artery Disease, Hx Heart Attack, Hx Hypertension Denies: Hx DVT, Hx Hypercholesterolemia, Hx Pulmonary Embolism Pulmonary Medical History: Reports: Hx Asthma, Hx Bronchitis, Hx COPD - 2 L nasal home oxygen, Hx Pneumonia, Hx Respiratory Failure - Chronic respiratory failure Denies: Hx Sleep Apnea, Hx Tuberculosis Neurological Medical History: Denies: Hx Seizures Endocrine Medical History: Reports: Hx Diabetes Mellitus Type 2, Hx Hypothyroidism. 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 Denies: Hx Cirrhosis, Hx Hepatitis, Hx Ulcer Musculoskeltal Medical History: Reports Hx Arthritis, Denies Hx Multiple Sclerosis, Reports Hx Musculoskeletal Deformity, Reports Hx Musculoskeletal Trauma Psychiatric Medical History: Reports: Hx Dementia, Hx Depression Denies: Hx Bipolar Disorder, Hx Schizophrenia Infectious Medical History: Reports: Hx C-Diff. Denies: Hx Hepatitis Past Surgical History: Reports: Hx Cholecystectomy, Hx Orthopedic Surgery - Foot surgery, Other - cataract bilateral - Immunizations Hx Diphtheria, Pertussis, Tetanus Vaccination: Yes Hx Pneumococcal Vaccination: 08/30/12 <MALCOLM LEGGETT - Last Filed: 01/08/18 01:40> - General Information source: Patient - Social History Smoking Status: Unknown if Ever Smoked <CAROLE ABEBE - Last Filed: 01/08/18 06:24> Review of Systems - Review of Systems Respiratory: See HPI, Short of breath <MALCOLM LEGGETT - Last Filed: 01/08/18 01:40> Physical Exam <MALCOLM LEGGETT - Last Filed: 01/08/18 01:40> <CAROLE ABEBE - Last Filed: 01/08/18 06:24> - Vital signs Vitals: BP 81/55 L 01/07/18 23:54 - Notes Notes: Physical Exam: General: Alert, appears well. HEENT: Normocephalic. Atraumatic. PERRL. Extraocular movements intact. Oropharynx clear. Neck: Supple. Non-tender. Respiratory: Expiratory wheeze on exam. Cardiovascular: Tachycardic rate and regular rhythm. Hypotensive. Abdominal: Normal Inspection. Non-tender. No distension. Normal Bowel Sounds. Back: Non-tender. No deformity or step off. Extremities: Moves all four extremities. Upper extremities: Normal inspection. Normal ROM. Lower extremities: Normal inspection. No edema. Normal ROM. Neurological: Normal cognition. AAOx3. Normal speech. Psychological: Normal affect. Normal Mood. Skin: Warm. Dry. Normal color. (MALCOLM LEGGETT) Course - Laboratory Result Diagrams: 01/08/18 00:05 01/08/18 00:05 <MALCOLM LEGGETT - Last Filed: 01/08/18 01:40> - Laboratory Result Diagrams: 01/08/18 00:05 01/08/18 00:05 <CAROLE ABEBE - Last Filed: 01/08/18 06:24> - Re-evaluation Re-evalutation: 01/08/18 00:19 Respiratory status is improving on BiPAP. (MALCOLM LEGGETT) 01/08/18 06:21 Patient is a 72-year-old female who comes in with hypotension, difficulty breathing. Patient was placed on BiPAP and given fluids with much improvement. She is initially tachycardic with a sinus tachycardia that is resolving with fluids. Blood pressures up to 90 systolic from 70s initially for EMS. Patient has had multiple UTIs in the past. Sidhu catheter was placed and urine is concerning for infection. In reviewing old microbiology, patient has had resistance to cephalosporins and is allergic to penicillin. Ertapenem has been initiated. Cultures have been sent. Patient is stable at the time of admission to the hospitalist service. (CAROLE ABEBE) - Vital Signs Vital signs: Temp Pulse Resp BP Pulse Ox 99.1 F 19 92/62 L 95 01/08/18 00:44 01/08/18 04:31 01/08/18 04:31 01/08/18 04:00 - Laboratory Laboratory results interpreted by me: 01/08/18 01/08/18 01/08/18 00:05 00:05 00:05 RBC 3.09 L Hgb 10.4 L Hct 30.4 L MCV 98 H MCH 33.6 H RDW 17.5 H Lymphocytes % 10.9 L Monocytes % 14.5 H VBG pCO2 VBG HCO3 Chloride 96 L Carbon Dioxide 35 H BUN 69 H Creatinine 2.59 H Est GFR ( Amer) 22 L Est GFR (Non-Af Amer) 18 L POC Glucose NT-Pro-B Natriuret Pep 923 H Total Protein 6.0 L Urine Protein Urine Blood Ur Leukocyte Esterase 01/08/18 01/08/18 01/08/18 01:18 02:31 02:40 RBC Hgb Hct MCV MCH RDW Lymphocytes % Monocytes % VBG pCO2 64.7 H VBG HCO3 37.9 H Chloride Carbon Dioxide BUN Creatinine Est GFR ( Amer) Est GFR (Non-Af Amer) POC Glucose 68 L NT-Pro-B Natriuret Pep Total Protein Urine Protein 100 H Urine Blood SMALL H Ur Leukocyte Esterase LARGE H Critical Care Note - Critical Care Note Total time excluding time spent on procedures (mins): 60 - Evaluation and management of respiratory distress, hypotension, UTI, multiple re-evaluations, coordination of admission <CAROLE ABEBE - Last Filed: 01/08/18 06:24> Discharge <MALCOLM LEGGETT - Last Filed: 01/08/18 01:40> - Discharge Admitting Provider: [facility] Unit Admitted: [facility] <CAROLE ABEBE - Last Filed: 01/08/18 06:24> - Discharge Clinical Impression: Respiratory distress, SIRS (systemic inflammatory response syndrome) UTI (urinary tract infection) Qualifiers: Urinary tract infection type: site unspecified Hematuria presence: with hematuria Qualified Code(s): N39.0 - Urinary tract infection, site not specified ; R31.9 - Hematuria, unspecified; R31.9 - Hematuria, unspecified Condition: Stable Disposition: ADMITTED INPATIENT Scribe Attestation: 01/08/18 06:22 I personally performed the services described in the documentation, reviewed and edited the documentation which was dictated to the scribe in my presence, and it accurately records my words and actions. (CAROLE ABEBE) Scribe Documentation - Scribe Written by Augustin:: Augustin Yao 01/07/18 [id number] acting as scribe for :: Reyes <MALCOLM LEGGETT - Last Filed: 01/08/18 01:40>
[2018-01-08 00:25] LABS: ABSOLUTE BASOPHILS # (AUTO) 0.1 10^3/uL (0.0-0.2); ABSOLUTE EOSINOPHILS # (AUTO) 0.1 10^3/uL (0.0-0.6); ABSOLUTE LYMPHOCYTES (AUTO) 0.8 10^3/uL (0.5-4.7); ABSOLUTE MONOCYTES (AUTO) 1.1 10^3/uL (0.1-1.4); ABSOLUTE NEUT (AUTO) 5.6 10^3/uL (1.7-8.2); BASOPHILS % (AUTO) 0.7 % (0-2); EOSINOPHILS % (AUTO) 1.9 % (0-6); HEMATOCRIT 30.4 % (36.0-47.0); HEMOGLOBIN 10.4 g/dL (12.0-15.5); LYMPHOCYTES % (AUTO) 10.9 % (13-45); MEAN CORPUSCULAR HEMOGLOBIN 33.6 pg (27.0-33.4); MEAN CORPUSCULAR HGB CONC 34.2 g/dL (32.0-36.0); MEAN CORPUSCULAR VOLUME 98 fl (80-97); MONOCYTES % (AUTO) 14.5 % (3-13); PLATELET COUNT 232 10^3/uL (150-450); RED BLOOD COUNT 3.09 10^6/uL (3.72-5.28); RED CELL DISTRIBUTION WIDTH 17.5 % (11.5-14.0); TOTAL CELLS COUNTED % (AUTO) 100 %; WHITE BLOOD COUNT 7.8 10^3/uL (4.0-10.5)
[2018-01-08 00:26] LABS: INTERNATIONAL RATION (INR) 0.87; PROTHROMBIN TIME 12.3 SEC (11.4-15.4)
--- NOTE | 2018-01-08 00:46 | RADIOLOGY REPORT (SQ) ---
EXAM DESCRIPTION: XR CHEST 1 VIEW COMPLETED DATE/TME: 01/07/2018 23:49 CLINICAL HISTORY: 72 years Female, SOB COMPARISON: 5.25.18. CTA, 11/28/2017. NUMBER OF VIEWS/TECHNIQUE: 1/AP FINDINGS: Moderate mixed airspace and streaky opacity at the right hilum, atherosclerosis, normal cardiac silhouette. No pneumothorax. No acute bone defect. Stable. IMPRESSION: No significant change.
[2018-01-08 00:48] LABS: ALANINE AMINOTRANSFERASE 31 U/L (9-52); ALBUMIN 3.6 g/dL (3.5-5.0); ALKALINE PHOSPHATASE 51 U/L (38-126); ANION GAP 12 (5-19); ASPARTATE AMINO TRANSFERASE 23 U/L (14-36); BILIRUBIN,DIRECT 0.3 mg/dL (0.0-0.4); BILIRUBIN,TOTAL 0.4 mg/dL (0.2-1.3); BLOOD UREA NITROGEN 69 mg/dL (7-20); CALCIUM 9.9 mg/dL (8.4-10.2); CARBON DIOXIDE 35 mmol/L (22-30); CHLORIDE 96 mmol/L (98-107); GLUCOSE 101 mg/dL (75-110); POTASSIUM 3.8 mmol/L (3.6-5.0); SODIUM 143.3 mmol/L (137-145)
[2018-01-08 01:02] LABS: TROPONIN I 0.112 ng/mL
[2018-01-08] MEDS ORDERED: HYDRALAZINE HCL INJ/PF 20 MG/1 ML SDV IV PRN (01:45)
[2018-01-08] MEDS ORDERED: IPRATROPIUM/ALBUTEROL 0.5-2.5 MG/3 ML AMPUL NEB PRN (01:45)
[2018-01-08] MEDS ORDERED: CHLORPHENIRAMINE MALEATE 4 MG TABLET PO ONE (01:45)
[2018-01-08] MEDS ORDERED: ACETAMINOPHEN 325 MG TABLET PO PRN (01:45)
[2018-01-08] MEDS: IPRATROPIUM/ALBUTEROL 0.5-2.5 MG/3 ML AMPUL NEB SCH ×4 (02:07→20:37)
[2018-01-08 02:55] LABS: APPEARANCE,URINE TURBID; BILIRUBIN,URINE NEGATIVE (NEGATIVE); COLOR,URINE YELLOW; GLUCOSE, URINE NEGATIVE (NEGATIVE); KETONES,URINE NEGATIVE (NEGATIVE); LEUKOCYTE ESTERASE,URINE LARGE (NEGATIVE); NITRITE,URINE NEGATIVE (NEGATIVE); PROTEIN,URINE 100 mg/dL (NEGATIVE); URINE SPECIFIC GRAVITY 1.013; UROBILINOGEN,URINE NEGATIVE mg/dL (<2.0)
[2018-01-08 03:01] LABS: VENOUS BLOOD BASE EXCESS 11.1 mmol/L; VENOUS BLOOD HCO3 37.9 mmol/L (20-32); VENOUS BLOOD PCO2 64.7 mmHg (35-63); VENOUS BLOOD PH 7.39 (7.30-7.42)
[2018-01-08] MEDS ORDERED: ERTAPENEM SODIUM INJ 1 GM VIAL IV ONE (03:25)
[2018-01-08] MEDS ORDERED: NORMAL SALINE 1000 ML 1,000 ML IV ONE ×2 (05:11→05:30)
[2018-01-08] MEDS ORDERED: HEPARIN SOD (PORCINE) 5,000 UNIT/ML 1 ML SYRINGE SUBCUT SCH (06:00)
[2018-01-08] MEDS ORDERED: HYDROCORTISONE SOD SUCCINATE INJ/PF 100 MG/2 ML SDV IV ONE (06:30)
--- NOTE | 2018-01-08 06:44 | PDOC H&P ---
History of Present Illness Admission Date/PCP: 01/08/18 03:33 ARASELI AGUILAR MD Patient complains of: Shortness of breath and polyuria History of Present Illness: TRENTON MCCOY is a 72 year old female with history of diabetes, hypertension, obstructive sleep apnea, COPD, chronic bronchitis, chronic respiratory failure, prednisone and O2 dependent, chronic anemia, hypothyroidism, arthritis, GERD, external hemorrhoids, recurrent ESB E. coli, urinary tract infection, morbid obesity and debility. She presents with 48 hours of shortness of breath with nonproductive cough and polyuria. In the emergency room she is found to be in acute renal failure, COPD and bronchitis exacerbation and urinary tract infection. She denies missing any medications, recent chest pain nausea or vomiting. She receives IV fluids and ertapenem sensitive to ESBL, E. coli and referred to the hospitalist for admission. Past Medical History Cardiac Medical History: Reports: Congestive Heart Failure, Coronary Artery Disease, Myocardial Infarction, Hypertension Denies: DVT, Hyperlipidema, Pulmonary Embolism Pulmonary Medical History: Reports: Asthma, Bronchitis, Chronic Obstructive Pulmonary Disease (COPD) - 2 L nasal home oxygen, Pneumonia, Respiratory Failure - Chronic respiratory failure Denies: Sleep Apnea, Tuberculosis Neurological Medical History: Denies: Seizures Endocrine Medical History: Reports: Diabetes Mellitus Type 2, Hypothyroidism Denies: Diabetes Mellitus Type 1, Hyperthyroidism Renal/ Medical History: Denies: End Stage Renal Disease Malignancy Medical History: Reports: Brain Cancer - Lung cancer with brain metastases, 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 GI Medical History: Reports: Gastroesophageal Reflux Disease Denies: Cirrhosis, Hepatitis Musculoskeltal Medical History: Reports: Arthritis Psychiatric Medical History: Reports: Dementia, Depression Denies: Bipolar Disorder Hematology: Reports: Anemia, Bleeding Tendencies Infectious Medical History: Reports: Clostridium Difficile Past Surgical History Past Surgical History: Reports: Cholecystectomy, Orthopedic Surgery - Foot surgery, Other - cataract bilateral Social History Information Source: Patient, [facility] Records Lives with: Family Smoking Status: Former Smoker Frequency of Alcohol Use: None Hx Recreational Drug Use: No Drugs: None Hx Prescription Drug Abuse: No - Advance Directive Resuscitation Status: Full Code Family History Family History: COPD, Malignancy - Lung cancer Parental Family History Reviewed: Yes Children Family History Reviewed: Yes Sibling(s) Family History Reviewed.: Yes Medication/Allergy Home Medications: Amlodipine Besylate [Norvasc 2.5 mg Tablet] 2.5 mg PO DAILY 12/23/17 Carvedilol [Coreg 6.25 mg Tablet] 6.25 mg PO Q12 12/23/17 Furosemide [Lasix 40 mg Tablet] 40 mg PO Q12 12/23/17 Glimepiride [Amaryl 1 mg Tablet] 1 mg PO DAILY 12/23/17 Ipratropium/Albuterol Sulfate [Iprat-Albut 0.5-3(2.5) mg/3 ml] 1 vial IH Q4HWA 12/23/17 Levothyroxine Sodium [Synthroid 0.088 mg Tablet] 88 mcg PO DAILY 12/23/17 Lisinopril [Prinivil 5 mg Tablet] 5 mg PO DAILY 12/23/17 Magnesium Oxide [Mag-Ox 400 mg Tablet] 400 mg PO DAILY 12/23/17 Metformin HCl [Metformin HCl ER] 500 mg PO BID 12/23/17 Pantoprazole Sodium [Protonix] 40 mg PO DAILY 12/23/17 Tramadol HCl [Ultram 50 mg Tablet] 50 mg PO Q12HP PRN 12/23/17 Doxycycline Hyclate 100 mg PO Q12 #8 capsule 12/26/17 Prednisone 40 mg PO DAILY #5 tablet 12/26/17 Allergies/Adverse Reactions: azithromycin Allergy (Verified 01/08/18 00:10) amoxicillin [Amoxicillin] Adverse Reaction (Verified 01/08/18 00:10) visual hallucinations erythromycin base [Erythromycin Base] Adverse Reaction (Verified 01/08/18 00:10) visual hallucinations Potassium Clavulanate * [From Augmentin] Adverse Reaction (Verified 01/08/18 00: 10) visual hallucinations Review of Systems Constitutional: PRESENT: as per HPI, fatigue, weakness. ABSENT: fever(s), headache(s), night sweats Eyes: ABSENT: visual disturbances Ears: ABSENT: hearing changes Cardiovascular: ABSENT: chest pain, dyspnea on exertion, edema, orthropnea, palpitations Respiratory: PRESENT: as per HPI, cough, dyspnea. ABSENT: hemoptysis, sputum Gastrointestinal: ABSENT: abdominal pain, constipation, diarrhea, hematemesis, hematochezia, nausea, vomiting Genitourinary: PRESENT: as per HPI, dysuria. ABSENT: hematuria Musculoskeletal: ABSENT: joint swelling Integumentary: ABSENT: rash, wounds Neurological: ABSENT: abnormal gait, abnormal speech, confusion, dizziness, focal weakness, syncope Psychiatric: ABSENT: anxiety, depression, homidical ideation, suicidal ideation Endocrine: ABSENT: cold intolerance, heat intolerance, polydipsia, polyuria Hematologic/Lymphatic: ABSENT: easy bleeding, easy bruising Physical Exam Vital Signs: Temp Pulse Resp BP Pulse Ox 99.1 F 19 92/62 L 95 01/08/18 00:44 01/08/18 04:31 01/08/18 04:31 01/08/18 04:00 General appearance: PRESENT: cooperative, mild distress, morbidly obese Head exam: PRESENT: atraumatic, normocephalic Eye exam: PRESENT: conjunctiva pink, EOMI, PERRLA. ABSENT: scleral icterus Ear exam: PRESENT: normal external ear exam Mouth exam: PRESENT: dry mucosa, tongue midline Neck exam: ABSENT: carotid bruit, JVD, lymphadenopathy, thyromegaly Respiratory exam: PRESENT: accessory muscle use, crackles, prolonged expiratory phas, rales, symmetrical, tachypnea, wheezes Cardiovascular exam: PRESENT: RRR. ABSENT: diastolic murmur, rubs, systolic murmur Pulses: PRESENT: normal dorsalis pedis pul Vascular exam: PRESENT: normal capillary refill GI/Abdominal exam: PRESENT: normal bowel sounds, soft. ABSENT: distended, guarding, mass, organolmegaly, rebound, tenderness Rectal exam: PRESENT: deferred Extremities exam: PRESENT: full ROM. ABSENT: calf tenderness, clubbing, pedal edema Neurological exam: PRESENT: alert, awake, oriented to person, oriented to place , oriented to time, oriented to situation, CN II-XII grossly intact. ABSENT: motor sensory deficit Psychiatric exam: PRESENT: appropriate affect, normal mood. ABSENT: homicidal ideation, suicidal ideation Skin exam: PRESENT: dry, intact, warm. ABSENT: cyanosis, rash Results Impressions: Chest X-Ray 01/07/18 23:49 IMPRESSION: No significant change. Assessment & Plan - Diagnosis (1) SIRS (systemic inflammatory response syndrome) Is this a current diagnosis for this admission?: Yes Plan: Most likely secondary to ESL E. coli UTI. Though complicated by prednisone dependence. Ertapenem initiated, Solu-Cortef 1 followed by home prednisone regimen, follow-up CBC blood and urine culture (2) UTI (urinary tract infection) Qualifiers: Urinary tract infection type: site unspecified Hematuria presence: with hematuria Qualified Code(s): N39.0 - Urinary tract infection, site not specified; R31.9 - Hematuria, unspecified; R31.9 - Hematuria, unspecified Is this a current diagnosis for this admission?: Yes Plan: Please see #1 (3) MARY LOU (acute kidney injury) Is this a current diagnosis for this admission?: Yes Plan: Likely secondary to #1, avoid nephrotoxic meds and doses, IV fluid challenge follow-up chemistry (4) Acute and chronic respiratory failure with hypercapnia Is this a current diagnosis for this admission?: Yes Plan: Resume BiPAP, incentive spirometry, albuterol and Atrovent. Resume prednisone. - Time Time Spent: 50 to 70 Minutes - Inpatient Certification Medical Necessity: Need Close Monitoring Due to Risk of Patient Decompensation
--- NOTE | 2018-01-08 07:46 | EKG REPORT ---
SEVERITY:- ABNORMAL ECG - SINUS TACHYCARDIA ATRIAL PREMATURE COMPLEX RIGHT BUNDLE BRANCH BLOCK : Confirmed by: Issa Martinez MD 08-Jan-2018 07:46:01
[2018-01-08] MEDS ORDERED: GLUCAGON,HUMAN RECOMB 1 MG INJ IM PRN (08:33)
[2018-01-08] MEDS ORDERED: DEXTROSE 40% GEL 15 GM TUBE PO PRN ×2 (08:33)
[2018-01-08] MEDS ORDERED: DEXTROSE 50%-WATER 25 GM/50 ML DISP.SYRIN IV PRN ×2 (08:33)
[2018-01-08] MEDS ORDERED: PHARMACY COMMUNICATION ORDER MC NR (08:45)
[2018-01-08] MEDS ORDERED: DOXYCYCLINE HYCLATE 100 MG in DEXTROSE 5%-WATER 250 ML IV SCH (10:00)
[2018-01-08] MEDS: FLUTICASONE NASAL SPRAY 50 MCG/SPRY 120 SPRAY/16 GM NASL SCH ×2 (10:39→22:51)
[2018-01-08] MEDS: PREDNISONE 20 MG TABLET PO SCH ×2 (10:39→17:23)
[2018-01-08] MEDS: ERTAPENEM SODIUM 0.5 GM in NORMAL SALINE 50 ML IV SCH (10:50)
[2018-01-08 11:06] LABS: PHOSPHORUS 3.6 mg/dL (2.5-4.5)
[2018-01-08 11:10] LABS: CREATINE KINASE MB 0.62 ng/mL (<4.55)
[2018-01-08 12:02] LABS: TROPONIN I 0.079 ng/mL
[2018-01-08] MEDS ORDERED: TRAMADOL HCL 50 MG TABLET PO PRN (15:12)
[2018-01-08] MEDS ORDERED: LEVALBUTEROL HCL NEB 1.25 MG/3 ML AMPUL NEB PRN (15:12)
--- NOTE | 2018-01-08 15:18 | PDOC PROGRESS REPORT ---
Subjective Progress Note for:: 01/08/18 Subjective:: The patient is a 72-year-old gentleman with a past medical history of Diabetes Hypertension Obstructive sleep apnea COPD Chronic hypoxic respiratory failure, oxygen dependent On chronic steroids for severe COPD Anemia of chronic disease Hypothyroidism GERD Arthritis Recurrent ESBL E. coli infection External hemorrhoids Morbid obesity Debility Diastolic CHF She presented to the hospital on January 08 with shortness of breath and polyuria and was found to be in acute renal failure and was diagnosed with acute bronchitis COPD exacerbation and urinary tract infection. She was found to be hypotensive and was given IV fluid boluses and started on ertapenem. The patient feels well and reports no complaints at present. Reason For Visit: COPD EXACERBATION PNEUMONIA CAD DEMENTIA Physical Exam Vital Signs: Temp Pulse Resp BP Pulse Ox 98.0 F 108 H 18 88/53 L 100 01/08/18 05:55 01/08/18 14:00 01/08/18 13:30 01/08/18 12:29 01/08/18 13:30 Intake & Output 01/07/18 01/08/18 01/09/18 06:59 06:59 06:59 Intake Total 250 Output Total 750 Balance -500 Weight 81.6 kg General appearance: PRESENT: no acute distress, obese Head exam: PRESENT: normocephalic Ear exam: PRESENT: normal external ear exam Mouth exam: PRESENT: moist Neck exam: ABSENT: tracheal deviation Respiratory exam: PRESENT: symmetrical, unlabored. ABSENT: wheezes Cardiovascular exam: PRESENT: RRR GI/Abdominal exam: PRESENT: normal bowel sounds, soft. ABSENT: tenderness Rectal exam: PRESENT: deferred Extremities exam: ABSENT: pedal edema Neurological exam: PRESENT: alert, awake, oriented to person, oriented to place Psychiatric exam: PRESENT: appropriate affect Skin exam: ABSENT: rash Results Laboratory Results: 01/08/18 10:02 Phosphorus 3.6 Magnesium 1.6 01/08/18 01/08/18 10:02 10:02 Creatine Kinase < 20 L CK-MB (CK-2) 0.62 Troponin I 0.079 Impressions: Chest X-Ray 01/07/18 23:49 IMPRESSION: No significant change. Assessment & Plan - Diagnosis (1) SIRS (systemic inflammatory response syndrome) Is this a current diagnosis for this admission?: Yes Plan: Due to UTI (2) UTI (urinary tract infection) Qualifiers: Urinary tract infection type: site unspecified Hematuria presence: with hematuria Qualified Code(s): N39.0 - Urinary tract infection, site not specified; R31.9 - Hematuria, unspecified; R31.9 - Hematuria, unspecified Is this a current diagnosis for this admission?: Yes Plan: Day1 of Invanz (3) MARY LOU (acute kidney injury) Is this a current diagnosis for this admission?: Yes Plan: Avoid nephrotoxic agents. Gentle IV fluids. Hold Lisinopril, Metformin,Lasix (4) Acute and chronic respiratory failure with hypercapnia Is this a current diagnosis for this admission?: Yes Plan: BiPAP (5) COPD exacerbation Is this a current diagnosis for this admission?: Yes Plan: Continue nebs and steroids (6) Essential hypertension Is this a current diagnosis for this admission?: Yes Plan: BP is low hold BP lowering meds and monitor closely (7) Full code status Is this a current diagnosis for this admission?: Yes (8) GERD (gastroesophageal reflux disease) Qualifiers: Esophagitis presence: esophagitis presence not specified Qualified Code(s) : K21.9 - Gastro-esophageal reflux disease without esophagitis Is this a current diagnosis for this admission?: Yes (9) Hypothyroid Is this a current diagnosis for this admission?: Yes Plan: Continue Synthroid (10) Diabetes Is this a current diagnosis for this admission?: Yes Plan: Hold oral hypoglycemic agents. Insulin sliding scale - Time Time Spent with patient: 35 or more minutes
[2018-01-08] MEDS ORDERED: ONDANSETRON 4 MG TAB.RAPDIS PO PRN (15:41)
[2018-01-08 15:45] LABS: CREATINE KINASE MB 0.59 ng/mL (<4.55); TROPONIN I 0.06 ng/mL
[2018-01-08] MEDS: HEPARIN SOD (PORCINE) 5,000 UNIT/ML 1 ML SYRINGE SUBCUT SCH (17:23)
[2018-01-08] MEDS ORDERED: (PENDING PHARMACY ID) (Nystatin [Nystatin] 1 APPLIC) TOP SCH (18:00)
[2018-01-08] MEDS: CARVEDILOL 6.25 MG TABLET PO SCH (22:50)
[2018-01-08] MEDS: NYSTATIN TOPICAL POWDER 15 GM TP SCH (22:52)
[2018-01-08] MEDS: OXYCODONE-ACETAMINOPHEN 5-325 MG TABLET PO SCH (22:52)
[2018-01-09] MEDS: NYSTATIN TOPICAL POWDER 15 GM TP SCH ×5 (01:10→21:04)
[2018-01-09] MEDS: IPRATROPIUM/ALBUTEROL 0.5-2.5 MG/3 ML AMPUL NEB SCH ×4 (02:09→20:46)
[2018-01-09 04:42] LABS: ABSOLUTE LYMPHOCYTES (AUTO) 0.2 10^3/uL (0.5-4.7); ABSOLUTE MONOCYTES (AUTO) 0.3 10^3/uL (0.1-1.4); ABSOLUTE NEUT (AUTO) 3.7 10^3/uL (1.7-8.2); BASOPHILS % (AUTO) 0.1 % (0-2); HEMATOCRIT 24.7 % (36.0-47.0); HEMOGLOBIN 8.5 g/dL (12.0-15.5); LYMPHOCYTES % (AUTO) 5.8 % (13-45); MEAN CORPUSCULAR HEMOGLOBIN 33.6 pg (27.0-33.4); MEAN CORPUSCULAR HGB CONC 34.4 g/dL (32.0-36.0); MEAN CORPUSCULAR VOLUME 98 fl (80-97); MONOCYTES % (AUTO) 8.1 % (3-13); PLATELET COUNT 167 10^3/uL (150-450); RED BLOOD COUNT 2.53 10^6/uL (3.72-5.28); RED CELL DISTRIBUTION WIDTH 16.9 % (11.5-14.0); TOTAL CELLS COUNTED % (AUTO) 100 %; WHITE BLOOD COUNT 4.3 10^3/uL (4.0-10.5)
[2018-01-09 04:44] LABS: ANION GAP 6 (5-19); BLOOD UREA NITROGEN 43 mg/dL (7-20); CALCIUM 8.9 mg/dL (8.4-10.2); CARBON DIOXIDE 36 mmol/L (22-30); CHLORIDE 102 mmol/L (98-107); GLUCOSE 273 mg/dL (75-110); POTASSIUM 4.1 mmol/L (3.6-5.0); SODIUM 144.2 mmol/L (137-145)
[2018-01-09] MEDS: LANSOPRAZOLE 30 MG TAB.RAP.DR PO SCH (05:57)
[2018-01-09] MEDS: LEVOTHYROXINE SODIUM 0.088 MG TABLET PO SCH (05:57)
[2018-01-09] MEDS: HEPARIN SOD (PORCINE) 5,000 UNIT/ML 1 ML SYRINGE SUBCUT SCH ×2 (05:58→17:21)
[2018-01-09] MEDS: FLUTICASONE NASAL SPRAY 50 MCG/SPRY 120 SPRAY/16 GM NASL SCH ×2 (09:30→21:03)
[2018-01-09] MEDS: CARVEDILOL 6.25 MG TABLET PO SCH ×2 (09:30→21:02)
[2018-01-09] MEDS: TIOTROPIUM BROMIDE DPI 5 CAP/KIT (18 MCG/CAP) IH SCH (09:30)
[2018-01-09] MEDS: OXYCODONE-ACETAMINOPHEN 5-325 MG TABLET PO SCH ×2 (09:31→21:03)
[2018-01-09] MEDS: PREDNISONE 20 MG TABLET PO SCH ×2 (09:31→17:21)
[2018-01-09] MEDS ORDERED: MAGNESIUM OXIDE 400 MG TABLET PO SCH (10:00)
[2018-01-09] MEDS: ERTAPENEM SODIUM 0.5 GM in NORMAL SALINE 50 ML IV SCH (10:12)
--- NOTE | 2018-01-09 14:14 | PDOC PROGRESS REPORT ---
Subjective Progress Note for:: 01/09/18 Subjective:: The patient is a 72-year-old gentleman with a past medical history of Diabetes Hypertension Obstructive sleep apnea COPD Chronic hypoxic respiratory failure, oxygen dependent On chronic steroids for severe COPD Anemia of chronic disease Hypothyroidism GERD Arthritis Recurrent ESBL E. coli infection External hemorrhoids Morbid obesity Debility Diastolic CHF She presented to the hospital on January 08 with shortness of breath and polyuria and was found to be in acute renal failure and was diagnosed sepsis due to UTI and COPD exacerbation. The patient was initially hypotensive. This improved with IV fluids and she has not required pressors. Urine cultures growing gram-negative rods identification and sensitivities pending. Reason For Visit: COPD EXACERBATION PNEUMONIA CAD DEMENTIA Physical Exam Vital Signs: Temp Pulse Resp BP Pulse Ox 97.5 F 105 H 22 H 95/54 L 99 01/09/18 12:00 01/09/18 08:00 01/09/18 12:00 01/09/18 10:29 01/09/18 12:00 Intake & Output 01/08/18 01/09/18 01/10/18 06:59 06:59 06:59 Intake Total 1050 941 Output Total 1525 450 Balance -475 491 Weight 81.6 kg 86.1 kg General appearance: PRESENT: no acute distress Head exam: PRESENT: normocephalic Eye exam: ABSENT: scleral icterus Ear exam: PRESENT: normal external ear exam Mouth exam: PRESENT: moist Respiratory exam: PRESENT: symmetrical, unlabored, wheezes Cardiovascular exam: PRESENT: RRR GI/Abdominal exam: PRESENT: normal bowel sounds, soft. ABSENT: tenderness Rectal exam: PRESENT: deferred Gentrourinary exam: PRESENT: indwelling catheter Extremities exam: ABSENT: pedal edema Neurological exam: PRESENT: alert, awake Psychiatric exam: PRESENT: appropriate affect Results Laboratory Results: 01/09/18 04:06 01/09/18 04:06 01/09/18 01/09/18 04:06 04:06 WBC 4.3 RBC 2.53 L Hgb 8.5 L Hct 24.7 L MCV 98 H MCH 33.6 H MCHC 34.4 RDW 16.9 H Plt Count 167 Seg Neutrophils % 86.0 H Lymphocytes % 5.8 L Monocytes % 8.1 Eosinophils % 0.0 Basophils % 0.1 Absolute Neutrophils 3.7 Absolute Lymphocytes 0.2 L Absolute Monocytes 0.3 Absolute Eosinophils 0.0 Absolute Basophils 0.0 Sodium 144.2 Potassium 4.1 Chloride 102 Carbon Dioxide 36 H Anion Gap 6 BUN 43 H Creatinine 1.11 Est GFR ( Amer) 58 L Est GFR (Non-Af Amer) 48 L Glucose 273 H Calcium 8.9 Phosphorus 3.0 Magnesium 1.8 01/08/18 01/08/18 01/08/18 10:02 10:02 15:05 Creatine Kinase < 20 L < 20 L CK-MB (CK-2) 0.62 Troponin I 0.079 NT-Pro-B Natriuret Pep 01/08/18 01/09/18 15:05 04:06 Creatine Kinase CK-MB (CK-2) 0.59 Troponin I 0.060 NT-Pro-B Natriuret Pep 1060 H Impressions: Chest X-Ray 01/07/18 23:49 IMPRESSION: No significant change. Assessment & Plan - Diagnosis (1) Sepsis Is this a current diagnosis for this admission?: Yes Plan: Due to UTI. Improving (2) UTI (urinary tract infection) Qualifiers: Urinary tract infection type: site unspecified Hematuria presence: with hematuria Qualified Code(s): N39.0 - Urinary tract infection, site not specified; R31.9 - Hematuria, unspecified; R31.9 - Hematuria, unspecified Is this a current diagnosis for this admission?: Yes Plan: Day 2 of Invanz. Remove Sidhu catheter. Follow-up on urine cultures. (3) MARY LOU (acute kidney injury) Is this a current diagnosis for this admission?: Yes Plan: Resolved with IV fluids. Hold Lisinopril, Metformin, Lasix (4) Acute and chronic respiratory failure with hypercapnia Is this a current diagnosis for this admission?: Yes Plan: Resolved. BiPAP prn. (5) COPD exacerbation Is this a current diagnosis for this admission?: Yes Plan: Continue nebs and steroids (6) Essential hypertension Is this a current diagnosis for this admission?: Yes Plan: BP is low hold BP lowering meds and monitor closely (7) Full code status Is this a current diagnosis for this admission?: Yes (8) GERD (gastroesophageal reflux disease) Qualifiers: Esophagitis presence: esophagitis presence not specified Qualified Code(s) : K21.9 - Gastro-esophageal reflux disease without esophagitis Is this a current diagnosis for this admission?: Yes Plan: PPI (9) Hypothyroid Is this a current diagnosis for this admission?: Yes Plan: Continue Synthroid (10) Diabetes Is this a current diagnosis for this admission?: Yes Plan: Hold oral hypoglycemic agents. Insulin sliding scale - Time Time Spent with patient: 25-34 minutes - Plan Summary Plan Summary: Okay to transfer to [facility].
[2018-01-09] MEDS: LACTOBACILLUS ACIDOPHILUS 250 MG TAB PO SCH (17:21)
[2018-01-10] MEDS: IPRATROPIUM/ALBUTEROL 0.5-2.5 MG/3 ML AMPUL NEB SCH ×4 (01:55→20:00)
[2018-01-10 04:17] LABS: HEMATOCRIT 24.7 % (36.0-47.0); HEMOGLOBIN 8.7 g/dL (12.0-15.5); MEAN CORPUSCULAR HGB CONC 35.1 g/dL (32.0-36.0); MEAN CORPUSCULAR VOLUME 97 fl (80-97); PLATELET COUNT 168 10^3/uL (150-450); RED BLOOD COUNT 2.56 10^6/uL (3.72-5.28); RED CELL DISTRIBUTION WIDTH 16.8 % (11.5-14.0); WHITE BLOOD COUNT 5.2 10^3/uL (4.0-10.5)
[2018-01-10 04:22] LABS: ANION GAP 8 (5-19); BLOOD UREA NITROGEN 33 mg/dL (7-20); CALCIUM 8.9 mg/dL (8.4-10.2); CARBON DIOXIDE 33 mmol/L (22-30); CHLORIDE 102 mmol/L (98-107); GLUCOSE 185 mg/dL (75-110); PHOSPHORUS 2.6 mg/dL (2.5-4.5); POTASSIUM 4.3 mmol/L (3.6-5.0); SODIUM 142.7 mmol/L (137-145)
[2018-01-10] MEDS: LANSOPRAZOLE 30 MG TAB.RAP.DR PO SCH (05:23)
[2018-01-10] MEDS: HEPARIN SOD (PORCINE) 5,000 UNIT/ML 1 ML SYRINGE SUBCUT SCH ×2 (05:24→17:17)
[2018-01-10] MEDS: LEVOTHYROXINE SODIUM 0.088 MG TABLET PO SCH (05:24)
[2018-01-10] MEDS: LACTOBACILLUS ACIDOPHILUS 250 MG TAB PO SCH ×2 (09:29→17:17)
[2018-01-10] MEDS: CARVEDILOL 6.25 MG TABLET PO SCH ×2 (09:30→21:53)
[2018-01-10] MEDS: MAGNESIUM OXIDE 400 MG TABLET PO SCH ×2 (09:30→17:17)
[2018-01-10] MEDS: PREDNISONE 20 MG TABLET PO SCH ×2 (09:30→17:17)
[2018-01-10] MEDS: OXYCODONE-ACETAMINOPHEN 5-325 MG TABLET PO SCH ×2 (09:30→21:52)
[2018-01-10] MEDS: TIOTROPIUM BROMIDE DPI 5 CAP/KIT (18 MCG/CAP) IH SCH (09:53)
[2018-01-10] MEDS: FLUTICASONE NASAL SPRAY 50 MCG/SPRY 120 SPRAY/16 GM NASL SCH ×2 (09:53→21:53)
[2018-01-10] MEDS: NYSTATIN TOPICAL POWDER 15 GM TP SCH ×4 (09:54→21:54)
[2018-01-10] MEDS: ERTAPENEM SODIUM 0.5 GM in NORMAL SALINE 50 ML IV SCH (10:01)
--- NOTE | 2018-01-10 12:58 | PDOC PROGRESS REPORT ---
Subjective Progress Note for:: 01/10/18 Subjective:: The patient is a 72-year-old gentleman with a past medical history of Diabetes Hypertension Obstructive sleep apnea COPD Chronic hypoxic respiratory failure, oxygen dependent On chronic steroids for severe COPD Anemia of chronic disease Hypothyroidism GERD Arthritis Recurrent ESBL E. coli infection External hemorrhoids Morbid obesity Debility Diastolic CHF She presented to the hospital on January 08 with shortness of breath and polyuria and was found to be in acute renal failure and was diagnosed sepsis due to UTI and COPD exacerbation. She feels good today. No complaints. She uses a walker at home. Urine cultures growing ESBL producing E. coli. Reason For Visit: COPD EXACERBATION PNEUMONIA CAD DEMENTIA Physical Exam Vital Signs: Temp Pulse Resp BP Pulse Ox 97.9 F 90 16 121/70 95 01/10/18 12:33 01/10/18 12:33 01/10/18 12:33 01/10/18 12:33 01/10/18 12:33 Intake & Output 01/09/18 01/10/18 01/11/18 06:59 06:59 06:59 Intake Total 1050 1419 Output Total 1525 900 Balance -475 519 Weight 86.1 kg 84.7 kg General appearance: PRESENT: no acute distress, obese Head exam: PRESENT: normocephalic Eye exam: ABSENT: scleral icterus Ear exam: PRESENT: normal external ear exam Mouth exam: PRESENT: moist Respiratory exam: PRESENT: symmetrical, unlabored, wheezes. ABSENT: accessory muscle use, retraction Cardiovascular exam: PRESENT: RRR GI/Abdominal exam: PRESENT: normal bowel sounds, soft. ABSENT: tenderness Rectal exam: PRESENT: deferred Extremities exam: ABSENT: pedal edema Neurological exam: PRESENT: alert, awake, oriented to person, oriented to place , oriented to time, oriented to situation Psychiatric exam: PRESENT: appropriate affect Skin exam: ABSENT: petechiae Results Laboratory Results: 01/10/18 03:38 01/10/18 03:38 01/10/18 01/10/18 03:38 03:38 WBC 5.2 RBC 2.56 L Hgb 8.7 L Hct 24.7 L MCV 97 MCH 34.0 H MCHC 35.1 RDW 16.8 H Plt Count 168 Sodium 142.7 Potassium 4.3 Chloride 102 Carbon Dioxide 33 H Anion Gap 8 BUN 33 H Creatinine 1.04 Est GFR ( Amer) > 60 Est GFR (Non-Af Amer) 52 L Glucose 185 H Calcium 8.9 Phosphorus 2.6 Magnesium 1.7 01/08/18 01/08/18 01/08/18 10:02 10:02 15:05 Creatine Kinase < 20 L < 20 L CK-MB (CK-2) 0.62 Troponin I 0.079 NT-Pro-B Natriuret Pep 01/08/18 01/09/18 01/10/18 15:05 04:06 03:38 Creatine Kinase CK-MB (CK-2) 0.59 Troponin I 0.060 NT-Pro-B Natriuret Pep 1060 H 1870 H Impressions: Chest X-Ray 01/07/18 23:49 IMPRESSION: No significant change. Assessment & Plan - Diagnosis (1) Sepsis Is this a current diagnosis for this admission?: Yes Plan: Due to UTI. Improving (2) UTI (urinary tract infection) Qualifiers: Urinary tract infection type: site unspecified Hematuria presence: with hematuria Qualified Code(s): N39.0 - Urinary tract infection, site not specified; R31.9 - Hematuria, unspecified; R31.9 - Hematuria, unspecified Is this a current diagnosis for this admission?: Yes Plan: Day 3 of Invanz. Due to ESBL producing E. coli. (3) MARY LOU (acute kidney injury) Is this a current diagnosis for this admission?: Yes Plan: Resolved with IV fluids. Hold Lisinopril, Metformin, Lasix (4) Acute and chronic respiratory failure with hypercapnia Is this a current diagnosis for this admission?: Yes Plan: Resolved. BiPAP prn. (5) COPD exacerbation Is this a current diagnosis for this admission?: Yes Plan: Continue supplemental oxygen, nebs and steroids. (6) Essential hypertension Is this a current diagnosis for this admission?: Yes Plan: BP is low hold BP lowering meds and monitor closely (7) Full code status Is this a current diagnosis for this admission?: Yes (8) GERD (gastroesophageal reflux disease) Qualifiers: Esophagitis presence: esophagitis presence not specified Qualified Code(s) : K21.9 - Gastro-esophageal reflux disease without esophagitis Is this a current diagnosis for this admission?: Yes Plan: PPI (9) Hypothyroid Is this a current diagnosis for this admission?: Yes Plan: Continue Synthroid (10) Diabetes Is this a current diagnosis for this admission?: Yes Plan: Hold oral hypoglycemic agents. Insulin sliding scale - Time Time Spent with patient: 35 or more minutes
[2018-01-10] MEDS: INSULIN LISPRO 100 UNIT/ML 3 ML VIAL SUBCUT PRN (18:00)
[2018-01-11] MEDS: IPRATROPIUM/ALBUTEROL 0.5-2.5 MG/3 ML AMPUL NEB SCH ×4 (02:07→19:47)
[2018-01-11] MEDS: HEPARIN SOD (PORCINE) 5,000 UNIT/ML 1 ML SYRINGE SUBCUT SCH ×2 (06:08→17:34)
[2018-01-11] MEDS: LANSOPRAZOLE 30 MG TAB.RAP.DR PO SCH (06:08)
[2018-01-11] MEDS: LEVOTHYROXINE SODIUM 0.088 MG TABLET PO SCH (06:08)
[2018-01-11 07:04] LABS: ANION GAP 7 (5-19); BLOOD UREA NITROGEN 25 mg/dL (7-20); CALCIUM 9.2 mg/dL (8.4-10.2); CARBON DIOXIDE 34 mmol/L (22-30); CHLORIDE 104 mmol/L (98-107); GLUCOSE 94 mg/dL (75-110); POTASSIUM 3.9 mmol/L (3.6-5.0); SODIUM 145.4 mmol/L (137-145)
[2018-01-11] MEDS: TIOTROPIUM BROMIDE DPI 5 CAP/KIT (18 MCG/CAP) IH SCH (10:46)
[2018-01-11] MEDS: MAGNESIUM OXIDE 400 MG TABLET PO SCH ×2 (10:47→17:33)
[2018-01-11] MEDS: OXYCODONE-ACETAMINOPHEN 5-325 MG TABLET PO SCH ×2 (10:47→22:23)
[2018-01-11] MEDS: CARVEDILOL 6.25 MG TABLET PO SCH ×2 (10:47→22:23)
[2018-01-11] MEDS: LACTOBACILLUS ACIDOPHILUS 250 MG TAB PO SCH ×2 (10:48→17:34)
[2018-01-11] MEDS: PREDNISONE 20 MG TABLET PO SCH ×2 (10:48→17:34)
[2018-01-11] MEDS: FLUTICASONE NASAL SPRAY 50 MCG/SPRY 120 SPRAY/16 GM NASL SCH ×2 (10:48→22:20)
[2018-01-11] MEDS: ERTAPENEM SODIUM 0.5 GM in NORMAL SALINE 50 ML IV SCH (10:48)
[2018-01-11] MEDS: NYSTATIN TOPICAL POWDER 15 GM TP SCH ×4 (10:50→22:20)
--- NOTE | 2018-01-11 15:16 | PDOC PROGRESS REPORT ---
Subjective Progress Note for:: 01/11/18 Subjective:: The patient is a 72-year-old gentleman with a past medical history of Diabetes Hypertension Obstructive sleep apnea COPD Chronic hypoxic respiratory failure, oxygen dependent On chronic steroids for severe COPD Anemia of chronic disease Hypothyroidism GERD Arthritis Recurrent ESBL E. coli infection External hemorrhoids Morbid obesity Debility Diastolic CHF She presented to the hospital on January 08 with shortness of breath and polyuria and was found to be in acute renal failure and was diagnosed sepsis due to UTI and COPD exacerbation. Urine cultures growing ESBL producing E. coli. No complaints at present Reason For Visit: COPD EXACERBATION PNEUMONIA CAD DEMENTIA Physical Exam Vital Signs: Temp Pulse Resp BP Pulse Ox 98.2 F 112 H 20 119/69 96 01/11/18 12:00 01/11/18 12:00 01/11/18 12:00 01/11/18 12:00 01/11/18 12:00 Intake & Output 01/10/18 01/11/18 01/12/18 06:59 06:59 06:59 Intake Total 1419 420 Output Total 900 Balance 519 420 Weight 84.7 kg 85 kg General appearance: PRESENT: no acute distress, obese Head exam: PRESENT: normocephalic Eye exam: ABSENT: scleral icterus Ear exam: PRESENT: normal external ear exam Mouth exam: PRESENT: moist Respiratory exam: PRESENT: symmetrical, unlabored, wheezes Cardiovascular exam: PRESENT: RRR GI/Abdominal exam: PRESENT: normal bowel sounds, soft. ABSENT: tenderness Rectal exam: PRESENT: deferred Gentrourinary exam: ABSENT: indwelling catheter Extremities exam: ABSENT: pedal edema Neurological exam: PRESENT: alert, awake, oriented to person, oriented to place , oriented to time, oriented to situation Psychiatric exam: PRESENT: appropriate affect Results Laboratory Results: 01/10/18 03:38 01/11/18 06:43 01/11/18 06:43 Sodium 145.4 H Potassium 3.9 Chloride 104 Carbon Dioxide 34 H Anion Gap 7 BUN 25 H Creatinine 0.85 Est GFR ( Amer) > 60 Est GFR (Non-Af Amer) > 60 Glucose 94 Calcium 9.2 01/08/18 01/08/18 01/08/18 10:02 10:02 15:05 Creatine Kinase < 20 L < 20 L CK-MB (CK-2) 0.62 Troponin I 0.079 NT-Pro-B Natriuret Pep 01/08/18 01/09/18 01/10/18 15:05 04:06 03:38 Creatine Kinase CK-MB (CK-2) 0.59 Troponin I 0.060 NT-Pro-B Natriuret Pep 1060 H 1870 H Impressions: Chest X-Ray 01/07/18 23:49 IMPRESSION: No significant change. Assessment & Plan - Diagnosis (1) Sepsis Is this a current diagnosis for this admission?: Yes Plan: Due to UTI. Improving (2) UTI (urinary tract infection) Qualifiers: Urinary tract infection type: site unspecified Hematuria presence: with hematuria Qualified Code(s): N39.0 - Urinary tract infection, site not specified; R31.9 - Hematuria, unspecified; R31.9 - Hematuria, unspecified Is this a current diagnosis for this admission?: Yes Plan: Day 4 of Invanz. Due to ESBL producing E. coli. (3) MARY LOU (acute kidney injury) Is this a current diagnosis for this admission?: Yes Plan: Resolved with IV fluids. Hold Lisinopril, Metformin, Lasix (4) Acute and chronic respiratory failure with hypercapnia Is this a current diagnosis for this admission?: Yes Plan: Resolved. BiPAP prn. (5) COPD exacerbation Is this a current diagnosis for this admission?: Yes Plan: Continue supplemental oxygen, nebs and steroids. (6) Essential hypertension Is this a current diagnosis for this admission?: Yes Plan: BP is low hold BP lowering meds and monitor closely (7) Full code status Is this a current diagnosis for this admission?: Yes (8) GERD (gastroesophageal reflux disease) Qualifiers: Esophagitis presence: esophagitis presence not specified Qualified Code(s) : K21.9 - Gastro-esophageal reflux disease without esophagitis Is this a current diagnosis for this admission?: Yes Plan: PPI (9) Hypothyroid Is this a current diagnosis for this admission?: Yes Plan: Continue Synthroid (10) Diabetes Is this a current diagnosis for this admission?: Yes Plan: Hold oral hypoglycemic agents. Insulin sliding scale - Time Time Spent with patient: 25-34 minutes
[2018-01-11] MEDS: INSULIN LISPRO 100 UNIT/ML 3 ML VIAL SUBCUT PRN (23:19)
[2018-01-12] MEDS: IPRATROPIUM/ALBUTEROL 0.5-2.5 MG/3 ML AMPUL NEB SCH ×4 (02:47→21:02)
[2018-01-12] MEDS: LANSOPRAZOLE 30 MG TAB.RAP.DR PO SCH (06:02)
[2018-01-12] MEDS: HEPARIN SOD (PORCINE) 5,000 UNIT/ML 1 ML SYRINGE SUBCUT SCH ×2 (06:02→18:33)
[2018-01-12] MEDS: LEVOTHYROXINE SODIUM 0.088 MG TABLET PO SCH (06:02)
[2018-01-12 07:14] LABS: ANION GAP 7 (5-19); BLOOD UREA NITROGEN 25 mg/dL (7-20); CALCIUM 9.4 mg/dL (8.4-10.2); CARBON DIOXIDE 32 mmol/L (22-30); CHLORIDE 107 mmol/L (98-107); GLUCOSE 86 mg/dL (75-110); POTASSIUM 3.6 mmol/L (3.6-5.0); SODIUM 145.7 mmol/L (137-145)
[2018-01-12] MEDS ORDERED: POTASSIUM CHLORIDE 10 MEQ TABLET.SA PO ONE (08:30)
[2018-01-12] MEDS ORDERED: LORAZEPAM INJ 2 MG/1 ML VIAL IV PRN (10:56)
[2018-01-12] MEDS: FLUTICASONE NASAL SPRAY 50 MCG/SPRY 120 SPRAY/16 GM NASL SCH ×2 (11:15→22:32)
[2018-01-12] MEDS: MAGNESIUM OXIDE 400 MG TABLET PO SCH ×2 (11:16→18:25)
[2018-01-12] MEDS: LACTOBACILLUS ACIDOPHILUS 250 MG TAB PO SCH ×2 (11:16→18:25)
[2018-01-12] MEDS: CARVEDILOL 6.25 MG TABLET PO SCH ×2 (11:17→22:34)
[2018-01-12] MEDS: PREDNISONE 20 MG TABLET PO SCH ×2 (11:17→22:32)
[2018-01-12] MEDS: ERTAPENEM SODIUM 0.5 GM in NORMAL SALINE 50 ML IV SCH (11:18)
[2018-01-12] MEDS: OXYCODONE-ACETAMINOPHEN 5-325 MG TABLET PO SCH ×2 (11:18→22:32)
[2018-01-12] MEDS: TIOTROPIUM BROMIDE DPI 5 CAP/KIT (18 MCG/CAP) IH SCH (11:19)
[2018-01-12] MEDS: NYSTATIN TOPICAL POWDER 15 GM TP SCH ×4 (11:20→22:31)
--- NOTE | 2018-01-12 14:57 | RADIOLOGY REPORT (SQ) ---
EXAM DESCRIPTION: PICC INSERTION; FLUORO/CV PLACEMENT; U/S GUIDE FOR VASCULAR ACCESS COMPLETED DATE/TIME: 01/12/2018 1:58 pm REASON FOR STUDY: IV home antibiotics; IV ABX; IV ACCESS COMPARISON: None. FLUOROSCOPY TIME: 0.13 minutes. 1 images saved to PACS. TECHNIQUE: Fluoroscopic and ultrasound guided PICC placement. LIMITATIONS: None. PROCEDURE: After written consent and assessment were obtained, the patient was brought into the fluo roscopy room and place supine on the table. Ultrasound evaluation of potential access sites were perf ormed. After successfully identifying a patent left basilic vein, the left arm was prepped and draped in a sterile fashion along with the ultrasound probe. The entry site was anesthetized with 1% lidoca ine. A 21 gauge 7 cm needle was advanced through the skin and into the basilic vein under live ultras ound guidance. An ultrasound image was saved to PACS confirming access site. A .018 guide wire was then inserted through the needle and into the venous system. The needle was the removed and an 11 bravo de scalpel was used to make a 1cm skin incision. A 5 fr peel-away sheath was advanced over the wire and into the venous system. A measurement was then made using the existing wire and live fluoroscopic guidance. The wire was then removed and the trimmed. The PICC was advanced through the peel-away she ath and into the venous system. The peel-away sheath was removed and the catheter was adhered to the patients arm with a stat lock. The catheter was then aspirated and flushed and a sterile bandage was placed over the access site. A fluoroscopic spot image was saved to PACS confirming the catheter tip within the superior vena cava. IMPRESSION: SUCCESSFUL PLACEMENT OF A 5 FR DUAL LUMEN 40 CM PICC IN THE LEFT BASILIC VEIN. COMMENT: Patient medication list reviewed: Yes- Quality ID# [id number]:Eligible professional attests to doc umenting in the medical record they obtained, updated, or reviewed the patient's current medications. . Quality ID 145: Final reports for procedures using fluoroscopy that document radiation exposure ricardo diane, or exposure time and number of fluorographic images (if radiation exposure indices are not avail able) Quality ID #76: The patient was prepped and draped using maximum sterile barrier technique including cap, mask, sterile gown, sterile gloves, a large sterile sheet, hand hygiene, and 2% Chlorhexidine fo r cutaneous antisepsis. When ultrasound is used, sterile ultrasound techniques are followed requiring sterile gel and sterile probes. TECHNICAL DOCUMENTATION: JOB ID: [id number] [employer]- All Rights Reserved rev-12/15 Reading location - IP/workstation name: [facility]-2
--- NOTE | 2018-01-12 16:59 | PDOC PROGRESS REPORT ---
Subjective Progress Note for:: 01/12/18 Subjective:: The patient is a 72-year-old gentleman with a past medical history of Diabetes Hypertension Obstructive sleep apnea COPD Chronic hypoxic respiratory failure, oxygen dependent On chronic steroids for severe COPD Anemia of chronic disease Hypothyroidism GERD Arthritis Recurrent ESBL E. coli infection External hemorrhoids Morbid obesity Debility Diastolic CHF She presented to the hospital on January 08 with shortness of breath and polyuria and was found to be in acute renal failure and was diagnosed sepsis due to UTI and COPD exacerbation. Urine cultures growing ESBL producing E. coli. PICC line placed today- awaiting arrangement of home IV antibiotics. No complaints at present. Reason For Visit: COPD EXACERBATION PNEUMONIA CAD DEMENTIA Physical Exam Vital Signs: Temp Pulse Resp BP Pulse Ox 97.8 F 89 12 112/51 L 95 01/12/18 15:26 01/12/18 15:26 01/12/18 15:26 01/12/18 15:26 01/12/18 15:26 Intake & Output 01/11/18 01/12/18 01/13/18 06:59 06:59 06:59 Intake Total 420 860 Balance 420 860 Weight 85 kg 86.3 kg General appearance: PRESENT: no acute distress Head exam: PRESENT: normocephalic Eye exam: ABSENT: scleral icterus Mouth exam: PRESENT: moist Respiratory exam: PRESENT: rhonchi, symmetrical, unlabored Cardiovascular exam: PRESENT: RRR - Extra money is 20/20 2000. GI/Abdominal exam: PRESENT: normal bowel sounds, soft. ABSENT: tenderness - Ice Time is Gentrourinary exam: ABSENT: indwelling catheter Extremities exam: PRESENT: pedal edema. ABSENT: calf tenderness Neurological exam: PRESENT: alert, awake, oriented to person, oriented to place , oriented to situation Psychiatric exam: PRESENT: appropriate affect Results Laboratory Results: 01/10/18 03:38 01/12/18 06:52 01/12/18 01/12/18 06:52 06:52 Sodium 145.7 H Potassium 3.6 Chloride 107 Carbon Dioxide 32 H Anion Gap 7 BUN 25 H Creatinine 0.89 Est GFR ( Amer) > 60 Est GFR (Non-Af Amer) > 60 Glucose 86 Calcium 9.4 Magnesium 2.2 01/08/18 01/08/18 01/08/18 10:02 10:02 15:05 Creatine Kinase < 20 L < 20 L CK-MB (CK-2) 0.62 Troponin I 0.079 NT-Pro-B Natriuret Pep 01/08/18 01/09/18 01/10/18 15:05 04:06 03:38 Creatine Kinase CK-MB (CK-2) 0.59 Troponin I 0.060 NT-Pro-B Natriuret Pep 1060 H 1870 H Impressions: Chest X-Ray 01/07/18 23:49 IMPRESSION: No significant change. Guidance Fluoroscopy 01/12/18 00:00 IMPRESSION: SUCCESSFUL PLACEMENT OF A 5 FR DUAL LUMEN 40 CM PICC IN THE LEFT BASILIC VEIN. Interventional Vascular Procedure 01/12/18 00:00 IMPRESSION: SUCCESSFUL PLACEMENT OF A 5 FR DUAL LUMEN 40 CM PICC IN THE LEFT BASILIC VEIN. PICC Line Insertion 01/12/18 00:00 IMPRESSION: SUCCESSFUL PLACEMENT OF A 5 FR DUAL LUMEN 40 CM PICC IN THE LEFT BASILIC VEIN. Assessment & Plan - Diagnosis (1) Sepsis Is this a current diagnosis for this admission?: Yes Plan: Due to UTI. Resolved. (2) UTI (urinary tract infection) Qualifiers: Urinary tract infection type: site unspecified Hematuria presence: with hematuria Qualified Code(s): N39.0 - Urinary tract infection, site not specified; R31.9 - Hematuria, unspecified; R31.9 - Hematuria, unspecified Is this a current diagnosis for this admission?: Yes Plan: Day 5 of Invanz. Due to ESBL producing E. coli. Will need a toltal of 10 days (3) MARY LOU (acute kidney injury) Is this a current diagnosis for this admission?: Yes Plan: Resolved with IV fluids. (4) Acute and chronic respiratory failure with hypercapnia Is this a current diagnosis for this admission?: Yes Plan: Resolved. BiPAP prn. (5) COPD exacerbation Is this a current diagnosis for this admission?: Yes Plan: Continue supplemental oxygen, nebs and steroids. (6) Essential hypertension Is this a current diagnosis for this admission?: Yes Plan: Resume outpatient meds as tolerated (7) Full code status Is this a current diagnosis for this admission?: Yes (8) GERD (gastroesophageal reflux disease) Qualifiers: Esophagitis presence: esophagitis presence not specified Qualified Code(s) : K21.9 - Gastro-esophageal reflux disease without esophagitis Is this a current diagnosis for this admission?: Yes Plan: PPI (9) Hypothyroid Is this a current diagnosis for this admission?: Yes Plan: Continue Synthroid (10) Diabetes Is this a current diagnosis for this admission?: Yes Plan: Hold oral hypoglycemic agents. Insulin sliding scale - Time Time Spent with patient: 25-34 minutes
[2018-01-12] MEDS ORDERED: NORMAL SALINE 10 ML SDV (AFTER EACH USE) IV PRN (17:34)
[2018-01-12] MEDS: NORMAL SALINE 10 ML SDV (SCHEDULED) IV SCH (22:32)
[2018-01-13] MEDS: IPRATROPIUM/ALBUTEROL 0.5-2.5 MG/3 ML AMPUL NEB SCH ×4 (02:00→19:55)
[2018-01-13] MEDS: LEVOTHYROXINE SODIUM 0.088 MG TABLET PO SCH (05:48)
[2018-01-13] MEDS: HEPARIN SOD (PORCINE) 5,000 UNIT/ML 1 ML SYRINGE SUBCUT SCH ×2 (05:48→17:56)
[2018-01-13] MEDS: LANSOPRAZOLE 30 MG TAB.RAP.DR PO SCH (05:48)
[2018-01-13] MEDS: NYSTATIN TOPICAL POWDER 15 GM TP SCH ×2 (11:31→17:55)
[2018-01-13] MEDS: PREDNISONE 20 MG TABLET PO SCH (11:32)
[2018-01-13] MEDS: CARVEDILOL 6.25 MG TABLET PO SCH (11:32)
[2018-01-13] MEDS: MAGNESIUM OXIDE 400 MG TABLET PO SCH ×2 (11:33→17:54)
[2018-01-13] MEDS: OXYCODONE-ACETAMINOPHEN 5-325 MG TABLET PO SCH (11:34)
[2018-01-13] MEDS: LACTOBACILLUS ACIDOPHILUS 250 MG TAB PO SCH ×2 (11:34→17:55)
[2018-01-13] MEDS: FLUTICASONE NASAL SPRAY 50 MCG/SPRY 120 SPRAY/16 GM NASL SCH (11:35)
[2018-01-13] MEDS: TIOTROPIUM BROMIDE DPI 5 CAP/KIT (18 MCG/CAP) IH SCH (11:35)
[2018-01-13] MEDS: NORMAL SALINE 10 ML SDV (SCHEDULED) IV SCH (11:36)
[2018-01-13] MEDS: ERTAPENEM SODIUM 0.5 GM in NORMAL SALINE 50 ML IV SCH (11:48)
--- NOTE | 2018-01-13 13:45 | PDOC PROGRESS REPORT ---
Subjective Progress Note for:: 01/13/18 Subjective:: The patient is a 72-year-old gentleman with a past medical history of Diabetes Hypertension Obstructive sleep apnea COPD Chronic hypoxic respiratory failure, oxygen dependent On chronic steroids for severe COPD Anemia of chronic disease Hypothyroidism GERD Arthritis Recurrent ESBL E. coli infection External hemorrhoids Morbid obesity Debility Diastolic CHF She presented to the hospital on January 08 with shortness of breath and polyuria and was found to be in acute renal failure and was diagnosed sepsis due to UTI and COPD exacerbation. Urine cultures growing ESBL producing E. coli. PICC line placed on 01/11/18- awaiting arrangement of home IV antibiotics- orders placed. Social work aware. No complaints at present. Reason For Visit: COPD EXACERBATION PNEUMONIA CAD DEMENTIA Physical Exam Vital Signs: Temp Pulse Resp BP Pulse Ox 98.4 F 88 16 114/58 L 100 01/13/18 12:06 01/13/18 12:06 01/13/18 12:06 01/13/18 12:06 01/13/18 12:06 Intake & Output 01/12/18 01/13/18 01/14/18 06:59 06:59 06:59 Intake Total 860 431 Balance 860 431 Weight 86.3 kg 86.4 kg General appearance: PRESENT: no acute distress, obese Head exam: PRESENT: normocephalic Ear exam: PRESENT: normal external ear exam Mouth exam: PRESENT: moist Respiratory exam: PRESENT: rhonchi, symmetrical, unlabored. ABSENT: wheezes Cardiovascular exam: PRESENT: RRR GI/Abdominal exam: PRESENT: normal bowel sounds, soft. ABSENT: tenderness Rectal exam: PRESENT: deferred Extremities exam: ABSENT: pedal edema Neurological exam: PRESENT: alert, awake, oriented to person, oriented to place Psychiatric exam: PRESENT: appropriate affect Skin exam: ABSENT: rash Results Laboratory Results: 01/10/18 03:38 01/12/18 06:52 01/08/18 01/08/18 01/08/18 10:02 10:02 15:05 Creatine Kinase < 20 L < 20 L CK-MB (CK-2) 0.62 Troponin I 0.079 NT-Pro-B Natriuret Pep 01/08/18 01/09/18 01/10/18 15:05 04:06 03:38 Creatine Kinase CK-MB (CK-2) 0.59 Troponin I 0.060 NT-Pro-B Natriuret Pep 1060 H 1870 H Impressions: Chest X-Ray 01/07/18 23:49 IMPRESSION: No significant change. Guidance Fluoroscopy 01/12/18 00:00 IMPRESSION: SUCCESSFUL PLACEMENT OF A 5 FR DUAL LUMEN 40 CM PICC IN THE LEFT BASILIC VEIN. Interventional Vascular Procedure 01/12/18 00:00 IMPRESSION: SUCCESSFUL PLACEMENT OF A 5 FR DUAL LUMEN 40 CM PICC IN THE LEFT BASILIC VEIN. PICC Line Insertion 01/12/18 00:00 IMPRESSION: SUCCESSFUL PLACEMENT OF A 5 FR DUAL LUMEN 40 CM PICC IN THE LEFT BASILIC VEIN. Assessment & Plan - Diagnosis (1) Sepsis Is this a current diagnosis for this admission?: Yes Plan: Due to UTI. Resolved. (2) UTI (urinary tract infection) Qualifiers: Urinary tract infection type: site unspecified Hematuria presence: with hematuria Qualified Code(s): N39.0 - Urinary tract infection, site not specified; R31.9 - Hematuria, unspecified; R31.9 - Hematuria, unspecified Is this a current diagnosis for this admission?: Yes Plan: Day 6 of 10 of Invanz. Due to ESBL producing E. coli. (3) MARY LOU (acute kidney injury) Is this a current diagnosis for this admission?: Yes Plan: Resolved with IV fluids. (4) Acute and chronic respiratory failure with hypercapnia Is this a current diagnosis for this admission?: Yes Plan: Resolved. BiPAP prn. (5) COPD exacerbation Is this a current diagnosis for this admission?: Yes Plan: Continue supplemental oxygen, nebs and taper steroids. (6) Essential hypertension Is this a current diagnosis for this admission?: Yes Plan: Outpatient meds. (7) Full code status Is this a current diagnosis for this admission?: Yes (8) GERD (gastroesophageal reflux disease) Qualifiers: Esophagitis presence: esophagitis presence not specified Qualified Code(s) : K21.9 - Gastro-esophageal reflux disease without esophagitis Is this a current diagnosis for this admission?: Yes Plan: PPI (9) Hypothyroid Is this a current diagnosis for this admission?: Yes Plan: Continue Synthroid (10) Diabetes Is this a current diagnosis for this admission?: Yes Plan: Hold oral hypoglycemic agents. Insulin sliding scale - Time Time Spent with patient: 25-34 minutes
[2018-01-13] MEDS ORDERED: NORMAL SALINE 10 ML SDV (AFTER EACH USE) IV PRN (15:53)
[2018-01-13 16:42] VITALS: BP 102/49
--- NOTE | 2018-01-13 17:20 | PDOC DISCHARGE SUMMARY ---
General - Admit/Disc Date/PCP Admission Date/Primary Care Provider: 01/08/18 03:33 ARASELI AGUILAR MD Discharge Date: 01/13/18 - Discharge Diagnosis (1) Sepsis Is this a current diagnosis for this admission?: Yes (2) UTI (urinary tract infection) Is this a current diagnosis for this admission?: Yes (3) MARY LOU (acute kidney injury) Is this a current diagnosis for this admission?: Yes (4) Acute and chronic respiratory failure with hypercapnia Is this a current diagnosis for this admission?: Yes (5) COPD exacerbation Is this a current diagnosis for this admission?: Yes (6) Essential hypertension Is this a current diagnosis for this admission?: Yes (7) Full code status Is this a current diagnosis for this admission?: Yes (8) GERD (gastroesophageal reflux disease) Is this a current diagnosis for this admission?: Yes (9) Hypothyroid Is this a current diagnosis for this admission?: Yes (10) Diabetes Is this a current diagnosis for this admission?: Yes - Additional Information Resuscitation Status: Full Code Discharge Diet: Diabetic Discharge Activity: Activity As Tolerated Home Medications: Albuterol Sulfate [Proair HFA Inhalation Aerosol 8.5 gm MDI] 2 puff IH Q4HP PRN 01/08/18 Albuterol Sulfate [Ventolin 0.083% Neb 2.5 mg/3 mL Ampul] 2.5 mg NEB RTTID 01/08 Amlodipine Besylate [Norvasc 2.5 mg Tablet] 2.5 mg PO DAILY 01/08/18 Carvedilol [Coreg 6.25 mg Tablet] 6.25 mg PO Q12 01/08/18 Furosemide [Lasix 40 mg Tablet] 40 mg PO BID 01/08/18 Glimepiride [Amaryl 1 mg Tablet] 1 mg PO DAILY 01/08/18 Ipratropium/Albuterol Sulfate [Duoneb 3 ml Ampul] 3 ml NEB [id number] 01/08/18 Levalbuterol HCl [Xopenex Neb 1.25 mg/3 ml Ampul] 1.25 mg NEB RTQ4HP PRN Lisinopril [Zestril] 5 mg PO DAILY 01/08/18 Magnesium Oxide [Mag-Ox 400 mg Tablet] 400 mg PO DAILY 01/08/18 Metformin HCl [Glucophage XR 500 mg Tablet] 500 mg PO BID 01/08/18 Nystatin 1 applic TOP QID 01/08/18 Ondansetron [Zofran Odt] 8 mg PO Q8HP PRN 01/08/18 Oxycodone HCl/Acetaminophen [Percocet 5-325 mg Tablet] 1 tab PO BID 01/08/18 Pantoprazole Sodium [Protonix] 40 mg PO DAILY 01/08/18 Tiotropium [place] [Spiriva Handihaler 18 mcg/dose (30 Dose)] 18 mcg IH DAILY Tramadol HCl [Ultram 50 mg Tablet] 50 mg PO BIDP PRN 01/08/18 Ertapenem Sodium [Invanz Inj 1 gm Vial] 0.5 gm IV DAILY 4 Days vial 01/13/18 Lactobacillus Acidophilus [Bacid 250 mg Tablet] 500 mg PO BID tab 01/13/18 Levothyroxine Sodium [Synthroid 0.088 mg Tablet] 0.088 mg PO Q6AM tablet History of Present Illness History of Present Illness: The patient is a 72-year-old gentleman with a past medical history of Diabetes Hypertension Obstructive sleep apnea COPD Chronic hypoxic respiratory failure, oxygen dependent On chronic steroids for severe COPD Anemia of chronic disease Hypothyroidism GERD Arthritis Recurrent ESBL E. coli infection External hemorrhoids Morbid obesity Debility Diastolic CHF She presented to the hospital on January 08 with shortness of breath and polyuria and was found to be in acute renal failure and was diagnosed sepsis due to UTI and COPD exacerbation. Urine cultures growing ESBL producing E. coli. She was ttreayted with IV fluids, Invanz, steroids and nebs and is doing much better PICC line placed on 01/11/18- to complete a course of IV Invanz at home- last day 01/17/18 Labs: CBC, BMP, Mag on 01/16/18. Follow up PCP in 1 week Stable for discharge home Hospital Course Hospital Course: As above Physical Exam Vital Signs: Temp Pulse Resp BP Pulse Ox 98.8 F 105 H 20 102/49 L 98 01/13/18 16:00 01/13/18 16:00 01/13/18 16:00 01/13/18 16:00 01/13/18 16:00 Intake & Output 06/15/18 06/16/18 06/17/18 06:59 06:59 06:59 Intake Total 860 431 Balance 860 431 Weight 86.3 kg 86.4 kg General appearance: PRESENT: no acute distress Respiratory exam: PRESENT: symmetrical, unlabored Results Laboratory Results: 01/10/18 03:38 01/12/18 06:52 01/08/18 01/08/18 01/08/18 10:02 10:02 15:05 Creatine Kinase < 20 L < 20 L CK-MB (CK-2) 0.62 Troponin I 0.079 NT-Pro-B Natriuret Pep 01/08/18 01/09/18 01/10/18 15:05 04:06 03:38 Creatine Kinase CK-MB (CK-2) 0.59 Troponin I 0.060 NT-Pro-B Natriuret Pep 1060 H 1870 H Impressions: Chest X-Ray 01/07/18 23:49 IMPRESSION: No significant change. Guidance Fluoroscopy 01/12/18 00:00 IMPRESSION: SUCCESSFUL PLACEMENT OF A 5 FR DUAL LUMEN 40 CM PICC IN THE LEFT BASILIC VEIN. Interventional Vascular Procedure 01/12/18 00:00 IMPRESSION: SUCCESSFUL PLACEMENT OF A 5 FR DUAL LUMEN 40 CM PICC IN THE LEFT BASILIC VEIN. PICC Line Insertion 01/12/18 00:00 IMPRESSION: SUCCESSFUL PLACEMENT OF A 5 FR DUAL LUMEN 40 CM PICC IN THE LEFT BASILIC VEIN. Qualifiers - * PATIENT BEING DISCHARGED WITH ANY OF THE FOLLOWING DIAGNOSIS: No Plan Time Spent: Greater than 30 Minutes
[2018-01-13] MEDS ORDERED: NORMAL SALINE 10 ML SDV (SCHEDULED) IV SCH (22:00)
[2018-01-14] MEDS ORDERED: PREDNISONE 20 MG TABLET PO SCH (10:00)
== END 2018-01-13 20:00 | disposition home health service (06) | DRG 871 ==
LOC: ER 23:45 → EH 01-08 03:33 → ICU 01-08 05:23 → 4N 01-10 22:41
PROVIDERS: ADMIT Internal Medicine; ATTEND Internal Medicine
PROC: 3E0F73Z Introduction of Anti-inflammatory into Respiratory Tract, Via Natural or Artificial Opening (ICD-10-PCS; principal; 2018-01-08)
PROC: 5A09457 Assistance with Respiratory Ventilation, 24-96 Consecutive Hours, Continuous Positive Airway Pressure (ICD-10-PCS; 2018-01-08)
PROC: 02HV33Z Insertion of Infusion Device into Superior Vena Cava, Percutaneous Approach (ICD-10-PCS; 2018-01-12)
PROC: B518ZZA Fluoroscopy of Superior Vena Cava, Guidance (ICD-10-PCS; 2018-01-12)
PROC: B548ZZA Ultrasonography of Superior Vena Cava, Guidance (ICD-10-PCS; 2018-01-12)
DX: A41.9 Sepsis, unspecified organism (principal); J96.22 Acute and chronic respiratory failure with hypercapnia; J44.1 Chronic obstructive pulmonary disease with (acute) exacerbation; I50.30 Unspecified diastolic (congestive) heart failure; N17.9 Acute kidney failure, unspecified; J96.11 Chronic respiratory failure with hypoxia; N39.0 Urinary tract infection, site not specified; C34.90 Malignant neoplasm of unspecified part of unspecified bronchus or lung; C79.31 Secondary malignant neoplasm of brain; I25.10 Atherosclerotic heart disease of native coronary artery without angina pectoris; F03.90 Unspecified dementia, unspecified severity, without behavioral disturbance, psychotic disturbance, mood disturbance, and anxiety; B96.20 Unspecified Escherichia coli [E. coli] as the cause of diseases classified elsewhere; E11.9 Type 2 diabetes mellitus without complications; D63.8 Anemia in other chronic diseases classified elsewhere; M19.90 Unspecified osteoarthritis, unspecified site; I11.0 Hypertensive heart disease with heart failure; K64.4 Residual hemorrhoidal skin tags; R31.9 Hematuria, unspecified; K21.9 Gastro-esophageal reflux disease without esophagitis; E03.9 Hypothyroidism, unspecified; G47.33 Obstructive sleep apnea (adult) (pediatric); E66.01 Morbid (severe) obesity due to excess calories; F32.9 Major depressive disorder, single episode, unspecified; J44.0 Chronic obstructive pulmonary disease with (acute) lower respiratory infection; J20.9 Acute bronchitis, unspecified; Z68.30 Body mass index [BMI] 30.0-30.9, adult; I25.2 Old myocardial infarction; Z79.899 Other long term (current) drug therapy; Z79.84 Long term (current) use of oral hypoglycemic drugs; Z79.52 Long term (current) use of systemic steroids; Z90.49 Acquired absence of other specified parts of digestive tract; Z98.42 Cataract extraction status, left eye; Z98.41 Cataract extraction status, right eye; Z87.891 Personal history of nicotine dependence; Z99.81 Dependence on supplemental oxygen; Z88.3 Allergy status to other anti-infective agents; Z88.0 Allergy status to penicillin; Z88.8 Allergy status to other drugs, medicaments and biological substances; Z83.6 Family history of other diseases of the respiratory system; Z80.1 Family history of malignant neoplasm of trachea, bronchus and lung
CPT/HCPCS: 36415; 36569; 71045; 76937; 77001; 80048; 80053; 81001; 82550; 82553; 82803; 82962; 83605; 83735; 83880; 84100; 84443; 84484; 85025; 85027; 85610; 87040; 87086; 87088; 87186; 93005; 93010; 94640; 94660; 94667; 94668; 94799; 99291; G8978-GP; G8979-GP; J1335; J1642; J1644; J1720; J1815; J2060; J3490; J7030; J7512; J7620

== ENCOUNTER 2018-01-27 00:40 | Inpatient (IN) | payer MEDICARE, OTHER ==
[2018-01-27 01:20] LABS: ANION GAP 10 (5-19); BLOOD UREA NITROGEN 16 mg/dL (7-20); CALCIUM 8.5 mg/dL (8.4-10.2); CARBON DIOXIDE 37 mmol/L (22-30); CHLORIDE 99 mmol/L (98-107); GLUCOSE 107 mg/dL (75-110); POTASSIUM 3.4 mmol/L (3.6-5.0); SODIUM 146.4 mmol/L (137-145)
[2018-01-27 01:23] LABS: ABSOLUTE EOSINOPHILS # (AUTO) 0.4 10^3/uL (0.0-0.6); ABSOLUTE LYMPHOCYTES (AUTO) 1.1 10^3/uL (0.5-4.7); ABSOLUTE MONOCYTES (AUTO) 0.9 10^3/uL (0.1-1.4); BASOPHILS % (AUTO) 0.4 % (0-2); EOSINOPHILS % (AUTO) 6.2 % (0-6); HEMATOCRIT 26.7 % (36.0-47.0); HEMOGLOBIN 9.2 g/dL (12.0-15.5); LYMPHOCYTES % (AUTO) 16.7 % (13-45); MEAN CORPUSCULAR HEMOGLOBIN 33.6 pg (27.0-33.4); MEAN CORPUSCULAR HGB CONC 34.3 g/dL (32.0-36.0); MEAN CORPUSCULAR VOLUME 98 fl (80-97); MONOCYTES % (AUTO) 14.6 % (3-13); PLATELET COUNT 318 10^3/uL (150-450); RED BLOOD COUNT 2.73 10^6/uL (3.72-5.28); RED CELL DISTRIBUTION WIDTH 17.1 % (11.5-14.0); SEGMENTED NEUTROPHILS % (AUTO) 62.1 % (42-78); TOTAL CELLS COUNTED % (AUTO) 100 %; WHITE BLOOD COUNT 6.4 10^3/uL (4.0-10.5)
--- NOTE | 2018-01-27 01:40 | RADIOLOGY REPORT (SQ) ---
EXAM DESCRIPTION: XR CHEST 1 VIEW COMPLETED DATE/TME: 01/27/2018 00:48 CLINICAL HISTORY: sob COMPARISON: 01/08/2018 FINDINGS: Single frontal view of the chest. Atherosclerotic calcification and tortuosity of the thoracic aorta. Normal left basilar opacity. No pneumothorax or pleural effusion. Leads overlie the chest. No acute osseous abnormalities Upper abdominal soft tissues are unremarkable. IMPRESSION: 1. Minimal left basilar opacities may be related to subsegmental atelectasis or developing pneumonia.
[2018-01-27] MEDS ORDERED: ALBUTEROL SULFATE 0.083% NEB 2.5 MG/3 ML AMPUL NEB ONE (01:45)
[2018-01-27] MEDS ORDERED: NORMAL SALINE 1000 ML 500 ML IV ONE (01:46)
--- NOTE | 2018-01-27 01:50 | ER Document Report ---
ED General - General Chief Complaint: Shortness Of Breath Stated Complaint: SHORTNESS OF BREATH Time Seen by Provider: 01/27/18 00:47 Notes: The patient is a 72-year-old female with history of COPD with chronic oxygen dependence at 2 L, hypertension, CHF, recent hospitalization for a COPD exacerbation who presents with several hours of progressively worsening shortness of breath. The patient reports that she used home nebulizers without any significant improvement. She states that the shortness of breath started relatively abruptly has gotten progressively worse since that time. Exertion worsens her symptoms. She states this feels similar to prior COPD exacerbations that she has had past including recent hospitalization. She has not contacted her primary care doctor regarding today's concerns. She denies any fever or constitutional symptoms. TRAVEL OUTSIDE OF THE [place] IN LAST 30 DAYS: No - Related Data Allergies/Adverse Reactions: azithromycin Allergy (Verified 01/08/18 00:10) amoxicillin [Amoxicillin] Adverse Reaction (Verified 01/08/18 00:10) visual hallucinations erythromycin base [Erythromycin Base] Adverse Reaction (Verified 01/08/18 00:10) visual hallucinations Potassium Clavulanate * [From Augmentin] Adverse Reaction (Verified 01/08/18 00: 10) visual hallucinations Past Medical History - General Information source: Patient - Social History Smoking Status: Former Smoker Frequency of alcohol use: None Drug Abuse: None Lives with: Family Family History: COPD, Malignancy - Lung cancer Patient has suicidal ideation: No Patient has homicidal ideation: No - Past Medical History Cardiac Medical History: Reports: Hx Congestive Heart Failure, Hx Coronary Artery Disease, Hx Heart Attack, Hx Hypertension Denies: Hx DVT, Hx Hypercholesterolemia, Hx Pulmonary Embolism Pulmonary Medical History: Reports: Hx Asthma, Hx Bronchitis, Hx COPD - 2 L nasal home oxygen, Hx Pneumonia, Hx Respiratory Failure - Chronic respiratory failure Denies: Hx Sleep Apnea, Hx Tuberculosis Neurological Medical History: Denies: Hx Seizures Endocrine Medical History: Reports: Hx Diabetes Mellitus Type 2, Hx Hypothyroidism. 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 Denies: Hx Cirrhosis, Hx Hepatitis, Hx Ulcer Musculoskeltal Medical History: Reports Hx Arthritis, Denies Hx Multiple Sclerosis, Reports Hx Musculoskeletal Deformity, Reports Hx Musculoskeletal Trauma Psychiatric Medical History: Reports: Hx Dementia, Hx Depression Denies: Hx Bipolar Disorder, Hx Schizophrenia Infectious Medical History: Reports: Hx C-Diff. Denies: Hx Hepatitis Past Surgical History: Reports: Hx Cholecystectomy, Hx Orthopedic Surgery - Foot surgery, Other - cataract bilateral - Immunizations Hx Diphtheria, Pertussis, Tetanus Vaccination: Yes Hx Pneumococcal Vaccination: 08/30/12 Review of Systems - Review of Systems Notes: Constitutional: Negative for fever. HENT: Negative for sore throat. Eyes: Negative for visual changes. Cardiovascular: Negative for chest pain. Respiratory: Positive for shortness of breath and cough Gastrointestinal: Negative for abdominal pain, vomiting or diarrhea. Genitourinary: Negative for dysuria. Musculoskeletal: Negative for back pain. Skin: Negative for rash. Neurological: Negative for headaches, weakness or numbness. 10 point ROS negative except as marked above and in HPI. Physical Exam - Vital signs Vitals: Resp Pulse Ox 19 97 01/27/18 00:46 01/27/18 00:46 Interpretation: Tachycardic Notes: PHYSICAL EXAMINATION: GENERAL: Elderly woman, in no overt distress HEAD: Atraumatic, normocephalic. EYES: Pupils equal round and reactive to light, extraocular movements intact, sclera anicteric, conjunctiva are normal. ENT: nares patent, oropharynx clear without exudates. Moderately dry mucous membranes. NECK: Normal range of motion, supple without lymphadenopathy LUNGS: Breathing approximately 22 breaths per minute. No retractions, no distress. Scattered expiratory wheezing in all lung curtis. HEART: Regular tachycardia without murmurs ABDOMEN: Soft, nontender, normoactive bowel sounds. No guarding, no rebound. No masses appreciated. EXTREMITIES: Normal range of motion, no pitting or edema. No cyanosis. NEUROLOGICAL: No focal neurological deficits. Moves all extremities spontaneously and on command. PSYCH: Normal mood, normal affect. SKIN: Warm, Dry, normal turgor, no rashes or lesions noted. Course - Re-evaluation Re-evalutation: 01/27/18 01:48 Patient presents with a moderate exacerbation of her baseline COPD, wheezing throughout but in no overt respiratory distress, breathing 21 times per minute on 97% on her normal 2 L of nasal cannula. She has received steroids and nebulizers prior to arrival. She is mildly tachycardic at time of presentation , consistent with having received multiple beta agonists prior to arrival. She will receive magnesium here in the emergency department. Chest x-ray shows a possible left lower lobe pneumonia. Levofloxacin has been initiated. Her clinical history is not consistent with ACS, acute pulmonary embolus, or alternative life-threatening pathology. Will reassess after she has received additional nebulizers. Labs otherwise overall unremarkable. Anemia and improved from prior assessment. Mild renal dysfunction with creatinine 1.32. 01/27/18 02:50 Patient's work of breathing remains within normal limits without hypoxia on her supplemental oxygen or tachypnea. 01/27/18 03:26 Patient remains persistently tachycardic, current heart rate 114. Saturating 94 % on 2 L by nasal cannula. She continues to have dominant wheezing in all lung curtis although remains without respiratory distress. Given her oxygen dependence at baseline, ongoing significant wheezing on exam, continued tachycardia, and a probable left lower lobe pneumonia on chest x-ray I believe she is most appropriate for hospitalization. I have discussed with the hospitalist who is excepted the patient for admission. - Vital Signs Vital signs: Temp Pulse Resp BP Pulse Ox 20 110/71 96 01/27/18 01:07 01/27/18 01:07 01/27/18 01:07 - Laboratory Result Diagrams: 01/27/18 00:57 01/27/18 00:57 Laboratory results interpreted by me: 01/27/18 01/27/18 00:57 00:57 RBC 2.73 L Hgb 9.2 L Hct 26.7 L MCV 98 H MCH 33.6 H RDW 17.1 H Monocytes % 14.6 H Eosinophils % 6.2 H Sodium 146.4 H Potassium 3.4 L Carbon Dioxide 37 H Creatinine 1.32 H Est GFR ( Amer) 48 L Est GFR (Non-Af Amer) 39 L - Diagnostic Test Radiology reviewed: Image reviewed, Reports reviewed Radiology results interpreted by me: 01/27/18 02:51 Chest x-ray: Left lower lobe atelectasis - EKG Interpretation by Me Additional EKG results interpreted by me: 01/27/18 02:52 Right bundle branch block unchanged from prior. Rate 112. No ST changes. Discharge - Discharge Clinical Impression: COPD exacerbation Left lower lobe pneumonia Qualifiers: Pneumonia type: due to unspecified organism Qualified Code(s): J18.1 - Lobar pneumonia, unspecified organism Condition: Fair Disposition: ADMITTED INPATIENT Admitting Provider: Hospitalist Unit Admitted: Telemetry Referrals: ARASELI AGUILAR MD [Primary Care Provider] - Follow up as needed
[2018-01-27] MEDS: MAGNESIUM SULFATE/D5W 1 GM/100 ML RTUPB IV SCH ×2 (02:01→02:29)
[2018-01-27] MEDS ORDERED: LEVOFLOXACIN 750 MG/D5W RTU 750 MG/150 ML RTUPB IV ONE (02:52)
[2018-01-27 03:41] LABS: APPEARANCE,URINE SLIGHTLY-CLOUDY; BILIRUBIN,URINE NEGATIVE (NEGATIVE); COLOR,URINE YELLOW; GLUCOSE, URINE NEGATIVE (NEGATIVE); KETONES,URINE NEGATIVE (NEGATIVE); LEUKOCYTE ESTERASE,URINE NEGATIVE (NEGATIVE); NITRITE,URINE NEGATIVE (NEGATIVE); PROTEIN,URINE NEGATIVE (NEGATIVE); URINE SPECIFIC GRAVITY 1.013; UROBILINOGEN,URINE NEGATIVE mg/dL (<2.0)
[2018-01-27] MEDS ORDERED: ONDANSETRON 4 MG TAB.RAPDIS PO PRN (03:44)
--- NOTE | 2018-01-27 04:02 | PDOC H&P ---
History of Present Illness Admission Date/PCP: 01/27/18 03:36 ARASELI AGUILAR MD History of Present Illness: TRENTON MCCOY is a 72 year old female patient with multiple comorbidities including dementia, CKD, COPD, chronic respiratory failure oxygen dependent 20/02, steroid-dependent, HTN, CAD, history of lung and brain cancer, hypothyroidism and CHF presents with chief complaint of shortness of breath. Since patient is somnolent, is not source of history. Brief history is obtained from ER attending note and chart review. Patient presents with several hours of progressively worsening shortness of breath. The patient reported that she used her home nebulizer without any significant improvement. She states that the shortness of breath started relatively abrupt has gotten progressively worse since that time exertion worsened her symptoms she states this feels similar to prior COPD exacerbation that she has had in the past including recent hospitalization. She has not contacted her primary care doctor regarding today's concern. Review of system and detailed history is unobtainable. Past Medical History Cardiac Medical History: Reports: Congestive Heart Failure, Coronary Artery Disease, Myocardial Infarction, Hypertension Denies: DVT, Hyperlipidema, Pulmonary Embolism Pulmonary Medical History: Reports: Asthma, Bronchitis, Chronic Obstructive Pulmonary Disease (COPD) - 2 L nasal home oxygen, Pneumonia, Respiratory Failure - Chronic respiratory failure Denies: Sleep Apnea, Tuberculosis Neurological Medical History: Denies: Seizures Endocrine Medical History: Reports: Diabetes Mellitus Type 2, Hypothyroidism Denies: Diabetes Mellitus Type 1, Hyperthyroidism Renal/ Medical History: Denies: End Stage Renal Disease Malignancy Medical History: Reports: Brain Cancer - Lung cancer with brain metastases, 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 GI Medical History: Reports: Gastroesophageal Reflux Disease Denies: Cirrhosis, Hepatitis Musculoskeltal Medical History: Reports: Arthritis Psychiatric Medical History: Reports: Dementia, Depression Denies: Bipolar Disorder Hematology: Reports: Anemia, Bleeding Tendencies Infectious Medical History: Reports: Clostridium Difficile Past Surgical History Past Surgical History: Reports: Cholecystectomy, Orthopedic Surgery - Foot surgery, Other - cataract bilateral Social History Lives with: Family Smoking Status: Former Smoker Frequency of Alcohol Use: None Hx Recreational Drug Use: No Drugs: None Hx Prescription Drug Abuse: No - Advance Directive Resuscitation Status: Full Code Family History Family History: COPD, Malignancy - Lung cancer Parental Family History Reviewed: Yes Children Family History Reviewed: Yes Sibling(s) Family History Reviewed.: Yes Medication/Allergy Home Medications: Albuterol Sulfate [Proair HFA Inhalation Aerosol 8.5 gm MDI] 2 puff IH Q4HP PRN 01/08/18 Albuterol Sulfate [Ventolin 0.083% Neb 2.5 mg/3 mL Ampul] 2.5 mg NEB RTTID 01/08 Amlodipine Besylate [Norvasc 2.5 mg Tablet] 2.5 mg PO DAILY 01/08/18 Carvedilol [Coreg 6.25 mg Tablet] 6.25 mg PO Q12 01/08/18 Furosemide [Lasix 40 mg Tablet] 40 mg PO BID 01/08/18 Glimepiride [Amaryl 1 mg Tablet] 1 mg PO DAILY 01/08/18 Ipratropium/Albuterol Sulfate [Duoneb 3 ml Ampul] 3 ml NEB [id number] 01/08/18 Levalbuterol HCl [Xopenex Neb 1.25 mg/3 ml Ampul] 1.25 mg NEB RTQ4HP PRN Lisinopril [Zestril] 5 mg PO DAILY 01/08/18 Magnesium Oxide [Mag-Ox 400 mg Tablet] 400 mg PO DAILY 01/08/18 Metformin HCl [Glucophage XR 500 mg Tablet] 500 mg PO BID 01/08/18 Nystatin 1 applic TOP QID 01/08/18 Ondansetron [Zofran Odt] 8 mg PO Q8HP PRN 01/08/18 Oxycodone HCl/Acetaminophen [Percocet 5-325 mg Tablet] 1 tab PO BID 01/08/18 Pantoprazole Sodium [Protonix] 40 mg PO DAILY 01/08/18 Tiotropium [place] [Spiriva Handihaler 18 mcg/dose (30 Dose)] 18 mcg IH DAILY Tramadol HCl [Ultram 50 mg Tablet] 50 mg PO BIDP PRN 01/08/18 Ertapenem Sodium [Invanz Inj 1 gm Vial] 0.5 gm IV DAILY 4 Days vial 01/13/18 Lactobacillus Acidophilus [Bacid 250 mg Tablet] 500 mg PO BID tab 01/13/18 Levothyroxine Sodium [Synthroid 0.088 mg Tablet] 0.088 mg PO Q6AM tablet Allergies/Adverse Reactions: azithromycin Allergy (Verified 01/08/18 00:10) amoxicillin [Amoxicillin] Adverse Reaction (Verified 01/08/18 00:10) visual hallucinations erythromycin base [Erythromycin Base] Adverse Reaction (Verified 01/08/18 00:10) visual hallucinations Potassium Clavulanate * [From Augmentin] Adverse Reaction (Verified 01/08/18 00: 10) visual hallucinations Review of Systems ROS unobtainable: Due to mental status Physical Exam Vital Signs: Temp Pulse Resp BP Pulse Ox 20 110/71 96 01/27/18 01:07 01/27/18 01:07 01/27/18 01:07 General appearance: PRESENT: mild distress Head exam: PRESENT: atraumatic Eye exam: PRESENT: conjunctiva pink Neck exam: ABSENT: carotid bruit, JVD, lymphadenopathy, thyromegaly Respiratory exam: PRESENT: decreased breath sounds, wheezes Cardiovascular exam: PRESENT: tachycardia GI/Abdominal exam: PRESENT: normal bowel sounds, soft. ABSENT: distended, guarding, mass, organolmegaly, rebound, tenderness Results Impressions: Chest X-Ray 01/27/18 00:48 IMPRESSION: 1. Minimal left basilar opacities may be related to subsegmental atelectasis or developing pneumonia. Assessment & Plan - Diagnosis (1) COPD exacerbation Is this a current diagnosis for this admission?: Yes Plan: Patient has been started on supplemental oxygen, BiPAP, DuoNeb, steroids and Levaquin. (2) Acute and chronic respiratory failure Is this a current diagnosis for this admission?: Yes Plan: Patient is O2 dependent 24/7. Continue supplemental oxygen. (3) Type 2 diabetes mellitus Is this a current diagnosis for this admission?: Yes Plan: Started on a sliding scale and will continue her home medications. (4) Hypothyroidism (acquired) Is this a current diagnosis for this admission?: Yes Plan: Continue Synthroid (5) Coronary artery disease Qualifiers: Coronary Disease-Associated Artery/Lesion type: [place] artery Is this a current diagnosis for this admission?: Yes Plan: Currently the patient does not have chest pain. We will continue her home medications. (6) Dementia Is this a current diagnosis for this admission?: Yes Plan: Without behavioral disorder. - Inpatient Certification Medical Necessity: Need Close Monitoring Due to Risk of Patient Decompensation, Need for IV Antibiotics
[2018-01-27] MEDS: IPRATROPIUM/ALBUTEROL 0.5-2.5 MG/3 ML AMPUL NEB SCH ×5 (04:43→20:23)
[2018-01-27] MEDS ORDERED: METHYLPREDNISOLONE INJ 40 MG/1 ML SDV IV SCH (06:00)
[2018-01-27] MEDS ORDERED: HEPARIN SOD (PORCINE) 5,000 UNIT/ML 1 ML SYRINGE SUBCUT SCH (06:00)
[2018-01-27] MEDS ORDERED: TRAMADOL HCL 50 MG TABLET PO PRN (08:30)
[2018-01-27] MEDS ORDERED: DEXTROSE 40% GEL 15 GM TUBE PO PRN ×2 (08:37)
[2018-01-27] MEDS ORDERED: DEXTROSE 50%-WATER 25 GM/50 ML DISP.SYRIN IV PRN ×2 (08:37)
[2018-01-27] MEDS ORDERED: GLUCAGON,HUMAN RECOMB 1 MG INJ IM PRN (08:37)
[2018-01-27] MEDS ORDERED: (PENDING PHARMACY ID) (Nystatin [Nystatin] 1 APPLIC) TOP SCH (10:00)
[2018-01-27] MEDS ORDERED: LEVOTHYROXINE SODIUM 0.088 MG TABLET PO ONE (10:00)
[2018-01-27] MEDS: FUROSEMIDE 40 MG TABLET PO SCH ×2 (10:13→17:46)
[2018-01-27] MEDS: CARVEDILOL 6.25 MG TABLET PO SCH ×2 (10:13→22:17)
[2018-01-27] MEDS: MAGNESIUM OXIDE 400 MG TABLET PO SCH (10:13)
[2018-01-27] MEDS: LANSOPRAZOLE 30 MG TAB.RAP.DR PO SCH (10:14)
[2018-01-27] MEDS: FLUTICASONE/SALMETEROL DISKUS 250-50 MCG/DOSE IH SCH ×2 (10:14→22:22)
[2018-01-27] MEDS: LACTOBACILLUS ACIDOPHILUS 250 MG TAB PO SCH ×2 (10:14→17:44)
[2018-01-27] MEDS: TIOTROPIUM BROMIDE DPI 5 CAP/KIT (18 MCG/CAP) IH SCH (10:15)
[2018-01-27] MEDS: NYSTATIN TOPICAL POWDER 15 GM TP SCH ×4 (10:15→22:20)
[2018-01-27] MEDS: HEPARIN SOD (PORCINE) 5,000 UNIT/ML 1 ML SYRINGE SUBCUT SCH ×2 (10:16→22:22)
[2018-01-27] MEDS: OXYCODONE-ACETAMINOPHEN 5-325 MG TABLET PO SCH ×2 (10:18→22:19)
[2018-01-27] MEDS ORDERED: MAGNESIUM SULFATE 4 GM/D5W 100 ML IV ONE (10:30)
--- NOTE | 2018-01-27 10:47 | EKG REPORT ---
SEVERITY:- ABNORMAL ECG - SINUS TACHYCARDIA RIGHT BUNDLE BRANCH BLOCK : Confirmed by: Susan Mishra MD 27-Jan-2018 10:46:42
--- NOTE | 2018-01-27 11:57 | PDOC PROGRESS REPORT ---
Subjective Progress Note for:: 01/27/18 Subjective:: 72 yr old female with Dementia Steroid and O2 dependent COPD Chronic hypoxic respiratory failure Chronic pain CKD III H/o Lung and brain cancer Hypertension Hypothyroidism Recurrent MDR UTIs Diabetes CAD She presented to the hospital with dyspnea and was diagnosed with COPD exacerbation and was started on BiPAP, steroids and abtibiotics. Reason For Visit: COPD EXACERBATION Physical Exam Vital Signs: Temp Pulse Resp BP Pulse Ox 98.1 F 115 H 20 108/54 L 98 01/27/18 06:05 01/27/18 06:05 01/27/18 06:05 01/27/18 06:05 01/27/18 06:05 Intake & Output 01/26/18 01/27/18 01/28/18 06:59 06:59 06:59 Weight 101.4 kg General appearance: PRESENT: no acute distress, obese Head exam: PRESENT: normocephalic Eye exam: ABSENT: scleral icterus Mouth exam: PRESENT: moist Teeth exam: PRESENT: edentulous Neck exam: ABSENT: tracheal deviation Respiratory exam: PRESENT: symmetrical, wheezes Cardiovascular exam: PRESENT: RRR GI/Abdominal exam: PRESENT: normal bowel sounds, soft. ABSENT: tenderness Rectal exam: PRESENT: deferred Extremities exam: ABSENT: pedal edema Neurological exam: PRESENT: alert, awake Skin exam: ABSENT: petechiae Results Impressions: Chest X-Ray 01/27/18 00:48 IMPRESSION: 1. Minimal left basilar opacities may be related to subsegmental atelectasis or developing pneumonia. Assessment & Plan - Diagnosis (1) Acute and chronic respiratory failure Is this a current diagnosis for this admission?: Yes Plan: Due to COPD exacerbation (2) COPD exacerbation Is this a current diagnosis for this admission?: Yes Plan: BipAP, supplemental oxygen, steroids, inhalers, nebs (3) Coronary artery disease Qualifiers: Coronary Disease-Associated Artery/Lesion type: [place] artery Is this a current diagnosis for this admission?: Yes Plan: Stable, continue outpatient meds (4) Dementia Is this a current diagnosis for this admission?: Yes (5) Hypothyroidism (acquired) Is this a current diagnosis for this admission?: Yes Plan: Synthroid (6) Type 2 diabetes mellitus Is this a current diagnosis for this admission?: Yes Plan: Hold OHAs. Insulin sliding scale (7) CHF with left ventricular diastolic dysfunction, NYHA class 1 Is this a current diagnosis for this admission?: Yes Plan: Stable (8) Essential hypertension Is this a current diagnosis for this admission?: Yes Plan: Stable, monitor and adjust meds accordingly (9) History of breast cancer Is this a current diagnosis for this admission?: Yes (10) History of lung cancer Is this a current diagnosis for this admission?: Yes (11) Lung cancer metastatic to brain Is this a current diagnosis for this admission?: Yes (12) Obesity with serious comorbidity Qualifiers: Obesity type: due to excess calories Obesity classification: adult class 1 (BMI 30 ? 34.9) Body mass index: BMI 31.0-31.9 Is this a current diagnosis for this admission?: Yes (13) Opiate dependence Qualifiers: Substance use status: uncomplicated Qualified Code(s): F11.20 - Opioid dependence, uncomplicated Is this a current diagnosis for this admission?: Yes Plan: Continue home meds (14) DVT prophylaxis Is this a current diagnosis for this admission?: Yes Plan: S/C heparin (15) Hypomagnesemia Is this a current diagnosis for this admission?: Yes Plan: Replete - Time Time Spent with patient: 25-34 minutes
[2018-01-27] MEDS: INSULIN LISPRO 100 UNIT/ML 3 ML VIAL SUBCUT PRN (12:25)
[2018-01-27] MEDS ORDERED: ASPIRIN 81 MG TABLET, ENT COATED PO ONE (13:00)
[2018-01-27] MEDS: METHYLPREDNISOLONE INJ 40 MG/1 ML SDV IV SCH ×2 (14:24→22:19)
[2018-01-28] MEDS: IPRATROPIUM/ALBUTEROL 0.5-2.5 MG/3 ML AMPUL NEB SCH ×6 (00:30→20:32)
[2018-01-28 06:20] LABS: HEMATOCRIT 22.4 % (36.0-47.0); MEAN CORPUSCULAR HEMOGLOBIN 33.8 pg (27.0-33.4); MEAN CORPUSCULAR HGB CONC 35.4 g/dL (32.0-36.0); MEAN CORPUSCULAR VOLUME 96 fl (80-97); PLATELET COUNT 255 10^3/uL (150-450); RED BLOOD COUNT 2.35 10^6/uL (3.72-5.28); RED CELL DISTRIBUTION WIDTH 16.4 % (11.5-14.0); WHITE BLOOD COUNT 6.2 10^3/uL (4.0-10.5)
[2018-01-28 06:32] LABS: ANION GAP 10 (5-19); BLOOD UREA NITROGEN 25 mg/dL (7-20); CALCIUM 8.1 mg/dL (8.4-10.2); CARBON DIOXIDE 34 mmol/L (22-30); CHLORIDE 98 mmol/L (98-107); GLUCOSE 215 mg/dL (75-110); PHOSPHORUS 3.5 mg/dL (2.5-4.5); POTASSIUM 3.7 mmol/L (3.6-5.0); SODIUM 141.9 mmol/L (137-145)
[2018-01-28] MEDS: LANSOPRAZOLE 30 MG TAB.RAP.DR PO SCH (06:35)
[2018-01-28] MEDS: LEVOTHYROXINE SODIUM 0.088 MG TABLET PO SCH (06:35)
[2018-01-28] MEDS: METHYLPREDNISOLONE INJ 40 MG/1 ML SDV IV SCH ×3 (06:35→22:14)
[2018-01-28 06:45] LABS: HEMOGLOBIN 7.9 g/dL (12.0-15.5)
[2018-01-28 06:49] LABS: ABSOLUTE LYMPHOCYTES# (MANUAL) 0.2 10^3/uL (0.5-4.7); ABSOLUTE MONOCYTES # (MANUAL) 0.1 10^3/uL (0.1-1.4); ABSOLUTE NEUTROPHILS# (MANUAL) 5.8 10^3/uL (1.7-8.2); BAND NEUTROPHILS % (MANUAL) 1 % (3-5); BASOPHILS % (MANUAL) 0 % (0-2); EOSINOPHILS % (MANUAL) 0 % (0-6); LYMPHOCYTES % (MANUAL) 4 % (13-45); MONOCYTES % (MANUAL) 2 % (3-13); SEGMENTED NEUTROPHILS % (MAN) 93 % (42-78); TOTAL CELLS COUNTED 100
[2018-01-28 06:51] LABS: ANISOCYTOSIS 2+; HYPOCHROMASIA 2+; OVALOCYTES 1+; POIKILOCYTOSIS 1+; TEAR DROP CELLS 1+
[2018-01-28 06:52] LABS: PLATELET COMMENT ADEQUATE
[2018-01-28] MEDS ORDERED: LEVOFLOXACIN 500 MG/D5W RTU 500 MG/100 ML RTUPB IV SCH (10:00)
[2018-01-28] MEDS: FLUTICASONE/SALMETEROL DISKUS 250-50 MCG/DOSE IH SCH ×2 (10:51→22:14)
[2018-01-28] MEDS: LACTOBACILLUS ACIDOPHILUS 250 MG TAB PO SCH ×2 (10:52→17:25)
[2018-01-28] MEDS: OXYCODONE-ACETAMINOPHEN 5-325 MG TABLET PO SCH ×2 (10:52→22:14)
[2018-01-28] MEDS: ASPIRIN 81 MG TABLET, ENT COATED PO SCH (10:53)
[2018-01-28] MEDS: FUROSEMIDE 40 MG TABLET PO SCH ×2 (10:53→17:24)
[2018-01-28] MEDS: MAGNESIUM OXIDE 400 MG TABLET PO SCH (10:53)
[2018-01-28] MEDS: CARVEDILOL 6.25 MG TABLET PO SCH ×2 (10:53→22:13)
[2018-01-28] MEDS: NEOMY/BACITRAC ZN/POLY OINT 15 GM TP SCH (10:54)
[2018-01-28] MEDS: TIOTROPIUM BROMIDE DPI 5 CAP/KIT (18 MCG/CAP) IH SCH (10:54)
[2018-01-28] MEDS: NYSTATIN TOPICAL POWDER 15 GM TP SCH ×4 (10:55→22:14)
[2018-01-28] MEDS: HEPARIN SOD (PORCINE) 5,000 UNIT/ML 1 ML SYRINGE SUBCUT SCH ×2 (10:56→22:14)
[2018-01-28] MEDS ORDERED: BACITRACIN ZINC OINTMENT 15 GM TP SCH (12:30)
--- NOTE | 2018-01-28 12:36 | PDOC PROGRESS REPORT ---
Subjective Progress Note for:: 01/28/18 Subjective:: 72 yr old female with Dementia Steroid and O2 dependent COPD Chronic hypoxic respiratory failure Chronic pain CKD III H/o Lung and brain cancer Hypertension Hypothyroidism Recurrent MDR UTIs Diabetes CAD She presented to the hospital with dyspnea and was diagnosed with COPD exacerbation and was started on BiPAP, steroids and abtibiotics. Feels better today, asking for a laxative. Hope to discharge in the next 24 hours if she continues to improve Reason For Visit: COPD EXACERBATION Physical Exam Vital Signs: Temp Pulse Resp BP Pulse Ox 98.3 F 89 18 120/61 97 01/28/18 08:10 01/28/18 12:19 01/28/18 12:19 01/28/18 08:10 01/28/18 12:19 Intake & Output 01/27/18 01/28/18 01/29/18 06:59 06:59 06:59 Intake Total 1269 Balance 1269 Weight 101.4 kg 101.4 kg General appearance: PRESENT: no acute distress, obese Ear exam: PRESENT: normal external ear exam Mouth exam: PRESENT: moist Teeth exam: PRESENT: edentulous Neck exam: ABSENT: tracheal deviation Respiratory exam: PRESENT: symmetrical, unlabored, wheezes Cardiovascular exam: PRESENT: RRR GI/Abdominal exam: PRESENT: normal bowel sounds, soft. ABSENT: tenderness Rectal exam: PRESENT: deferred Gentrourinary exam: ABSENT: indwelling catheter Neurological exam: PRESENT: alert, awake Psychiatric exam: PRESENT: appropriate affect Results Laboratory Results: 01/28/18 05:48 01/28/18 05:48 01/28/18 01/28/18 05:48 05:48 WBC 6.2 RBC 2.35 L Hgb 7.9 L Hct 22.4 L MCV 96 MCH 33.8 H MCHC 35.4 RDW 16.4 H Plt Count 255 Seg Neutrophils % Not Reportable Lymphocytes % Not Reportable Monocytes % Not Reportable Eosinophils % Not Reportable Basophils % Not Reportable Absolute Neutrophils Not Reportable Absolute Lymphocytes Not Reportable Absolute Monocytes Not Reportable Absolute Eosinophils Not Reportable Absolute Basophils Not Reportable Sodium 141.9 Potassium 3.7 Chloride 98 Carbon Dioxide 34 H Anion Gap 10 BUN 25 H Creatinine 1.57 H Est GFR ( Amer) 39 L Est GFR (Non-Af Amer) 32 L Glucose 215 H Calcium 8.1 L Phosphorus 3.5 Magnesium 2.5 H 01/28/18 05:48 NT-Pro-B Natriuret Pep 1680 H Impressions: Chest X-Ray 01/27/18 00:48 IMPRESSION: 1. Minimal left basilar opacities may be related to subsegmental atelectasis or developing pneumonia. Assessment & Plan - Diagnosis (1) Acute and chronic respiratory failure Is this a current diagnosis for this admission?: Yes Plan: Due to COPD exacerbation (2) COPD exacerbation Is this a current diagnosis for this admission?: Yes Plan: BiPAP as needed, supplemental oxygen, taper steroids, inhalers, nebs (3) Coronary artery disease Qualifiers: Coronary Disease-Associated Artery/Lesion type: [place] artery Is this a current diagnosis for this admission?: Yes Plan: Stable, continue outpatient meds (4) Dementia Is this a current diagnosis for this admission?: Yes Plan: stable (5) Hypothyroidism (acquired) Is this a current diagnosis for this admission?: Yes Plan: Synthroid (6) Type 2 diabetes mellitus Is this a current diagnosis for this admission?: Yes Plan: Hold OHAs. Insulin sliding scale (7) CHF with left ventricular diastolic dysfunction, NYHA class 1 Is this a current diagnosis for this admission?: Yes Plan: Stable (8) Essential hypertension Is this a current diagnosis for this admission?: Yes Plan: Stable, monitor and adjust meds accordingly (9) History of breast cancer Is this a current diagnosis for this admission?: Yes (10) History of lung cancer Is this a current diagnosis for this admission?: Yes (11) Lung cancer metastatic to brain Is this a current diagnosis for this admission?: Yes (12) Obesity with serious comorbidity Qualifiers: Obesity type: due to excess calories Obesity classification: adult class 1 (BMI 30 ? 34.9) Body mass index: BMI 31.0-31.9 Is this a current diagnosis for this admission?: Yes (13) Opiate dependence Qualifiers: Substance use status: uncomplicated Qualified Code(s): F11.20 - Opioid dependence, uncomplicated Is this a current diagnosis for this admission?: Yes Plan: Continue home meds (14) DVT prophylaxis Is this a current diagnosis for this admission?: Yes Plan: S/C heparin (15) Hypomagnesemia Is this a current diagnosis for this admission?: Yes Plan: Replete (16) Constipation Is this a current diagnosis for this admission?: Yes Plan: laxatives - Time Time Spent with patient: 25-34 minutes
[2018-01-28] MEDS ORDERED: LACTULOSE SYRUP 20 GM/30 ML UDCUP PO PRN (13:25)
[2018-01-28] MEDS: INSULIN LISPRO 100 UNIT/ML 3 ML VIAL SUBCUT PRN (13:33)
[2018-01-28] MEDS ORDERED: LACTULOSE SYRUP 20 GM/30 ML UDCUP PO SCH (14:00)
[2018-01-28] MEDS ORDERED: SENNOSIDES/DOCUSATE 8.6-50 MG 1 EACH TABLET PO SCH (22:00)
[2018-01-29] MEDS: LANSOPRAZOLE 30 MG TAB.RAP.DR PO SCH (06:01)
[2018-01-29] MEDS: METHYLPREDNISOLONE INJ 40 MG/1 ML SDV IV SCH ×3 (06:01→21:54)
[2018-01-29] MEDS: LEVOTHYROXINE SODIUM 0.088 MG TABLET PO SCH (06:01)
[2018-01-29 07:09] LABS: ANION GAP 8 (5-19); BLOOD UREA NITROGEN 41 mg/dL (7-20); CALCIUM 8.4 mg/dL (8.4-10.2); CARBON DIOXIDE 36 mmol/L (22-30); CHLORIDE 100 mmol/L (98-107); GLUCOSE 173 mg/dL (75-110); POTASSIUM 4.1 mmol/L (3.6-5.0); SODIUM 143.8 mmol/L (137-145)
[2018-01-29] MEDS: IPRATROPIUM/ALBUTEROL 0.5-2.5 MG/3 ML AMPUL NEB SCH ×4 (08:38→20:06)
[2018-01-29] MEDS: CARVEDILOL 6.25 MG TABLET PO SCH ×2 (09:54→21:53)
[2018-01-29] MEDS: HEPARIN SOD (PORCINE) 5,000 UNIT/ML 1 ML SYRINGE SUBCUT SCH ×2 (09:54→21:54)
[2018-01-29] MEDS: OXYCODONE-ACETAMINOPHEN 5-325 MG TABLET PO SCH ×2 (09:54→21:56)
[2018-01-29] MEDS: FUROSEMIDE 40 MG TABLET PO SCH (09:54)
[2018-01-29] MEDS: LACTOBACILLUS ACIDOPHILUS 250 MG TAB PO SCH ×2 (09:54→18:08)
[2018-01-29] MEDS: MAGNESIUM OXIDE 400 MG TABLET PO SCH (09:54)
[2018-01-29] MEDS: NEOMY/BACITRAC ZN/POLY OINT 15 GM TP SCH (09:55)
[2018-01-29] MEDS: NYSTATIN TOPICAL POWDER 15 GM TP SCH ×4 (09:55→21:57)
[2018-01-29] MEDS: FLUTICASONE/SALMETEROL DISKUS 250-50 MCG/DOSE IH SCH ×2 (09:55→21:54)
[2018-01-29] MEDS: TIOTROPIUM BROMIDE DPI 5 CAP/KIT (18 MCG/CAP) IH SCH (09:55)
[2018-01-29] MEDS: ASPIRIN 81 MG TABLET, ENT COATED PO SCH (09:55)
[2018-01-29] MEDS: NORMAL SALINE 1000 ML 1,000 ML IV PRN (11:51)
[2018-01-29] MEDS: INSULIN LISPRO 100 UNIT/ML 3 ML VIAL SUBCUT PRN ×2 (11:51→17:36)
--- NOTE | 2018-01-29 17:56 | PDOC PROGRESS REPORT ---
Subjective Progress Note for:: 01/29/18 Subjective:: 72 yr old female with Dementia Steroid and O2 dependent COPD Chronic hypoxic respiratory failure Chronic pain CKD III H/o Lung and brain cancer Hypertension Hypothyroidism Recurrent MDR UTIs Diabetes CAD She presented to the hospital with dyspnea and was diagnosed with COPD exacerbation and was started on BiPAP, steroids and abtibiotics. No complaints at present. Creatinine has been rising. Lasix held, gentle IV fluids. Reason For Visit: COPD EXACERBATION Physical Exam Vital Signs: Temp Pulse Resp BP Pulse Ox 98.0 F 88 20 129/62 H 100 01/29/18 16:23 01/29/18 16:23 01/29/18 16:23 01/29/18 16:23 01/29/18 16:23 Intake & Output 01/28/18 01/29/18 01/30/18 06:59 06:59 06:59 Intake Total 1269 1040 200 Output Total 450 Balance 1269 590 200 Weight 101.4 kg 83.3 kg General appearance: PRESENT: no acute distress Head exam: PRESENT: normocephalic Neck exam: ABSENT: tracheal deviation Respiratory exam: PRESENT: symmetrical, unlabored, wheezes Cardiovascular exam: PRESENT: RRR GI/Abdominal exam: PRESENT: normal bowel sounds, soft. ABSENT: tenderness Rectal exam: PRESENT: deferred Neurological exam: PRESENT: alert, awake Results Laboratory Results: 01/28/18 05:48 01/29/18 06:01 01/29/18 06:01 Sodium 143.8 Potassium 4.1 Chloride 100 Carbon Dioxide 36 H Anion Gap 8 BUN 41 H Creatinine 1.67 H Est GFR ( Amer) 36 L Est GFR (Non-Af Amer) 30 L Glucose 173 H Calcium 8.4 01/28/18 05:48 NT-Pro-B Natriuret Pep 1680 H Impressions: Chest X-Ray 01/27/18 00:48 IMPRESSION: 1. Minimal left basilar opacities may be related to subsegmental atelectasis or developing pneumonia. Assessment & Plan - Diagnosis (1) Acute and chronic respiratory failure Qualifiers: Respiratory failure complication: hypoxia Qualified Code(s): J96.21 - Acute and chronic respiratory failure with hypoxia Is this a current diagnosis for this admission?: Yes Plan: Due to COPD exacerbation (2) COPD exacerbation Is this a current diagnosis for this admission?: Yes Plan: BiPAP as needed, supplemental oxygen, taper steroids, inhalers, nebs (3) Coronary artery disease Qualifiers: Coronary Disease-Associated Artery/Lesion type: [place] artery Is this a current diagnosis for this admission?: Yes Plan: Stable, continue outpatient meds (4) Dementia Is this a current diagnosis for this admission?: Yes Plan: Stable (5) Hypothyroidism (acquired) Is this a current diagnosis for this admission?: Yes Plan: Synthroid (6) Type 2 diabetes mellitus Is this a current diagnosis for this admission?: Yes Plan: Hold OHAs. Insulin sliding scale (7) CHF with left ventricular diastolic dysfunction, NYHA class 1 Is this a current diagnosis for this admission?: Yes Plan: Stable (8) Essential hypertension Is this a current diagnosis for this admission?: Yes Plan: Stable, monitor and adjust meds accordingly (9) History of breast cancer Is this a current diagnosis for this admission?: Yes (10) History of lung cancer Is this a current diagnosis for this admission?: Yes (11) Lung cancer metastatic to brain Is this a current diagnosis for this admission?: Yes (12) Obesity with serious comorbidity Qualifiers: Obesity type: due to excess calories Obesity classification: adult class 1 (BMI 30 ? 34.9) Body mass index: BMI 31.0-31.9 Is this a current diagnosis for this admission?: Yes (13) Opiate dependence Qualifiers: Substance use status: uncomplicated Qualified Code(s): F11.20 - Opioid dependence, uncomplicated Is this a current diagnosis for this admission?: Yes Plan: Continue home meds (14) DVT prophylaxis Is this a current diagnosis for this admission?: Yes Plan: S/C heparin (15) Hypomagnesemia Is this a current diagnosis for this admission?: Yes Plan: Replete (16) Constipation Is this a current diagnosis for this admission?: Yes Plan: Laxatives as needed - Time Time Spent with patient: 25-34 minutes
[2018-01-30] MEDS: NORMAL SALINE 1000 ML 1,000 ML IV PRN (01:48)
[2018-01-30 05:40] LABS: HEMATOCRIT 23.5 % (36.0-47.0); HEMOGLOBIN 8.2 g/dL (12.0-15.5); MEAN CORPUSCULAR VOLUME 97 fl (80-97); PLATELET COUNT 283 10^3/uL (150-450); RED BLOOD COUNT 2.41 10^6/uL (3.72-5.28); RED CELL DISTRIBUTION WIDTH 16.5 % (11.5-14.0)
[2018-01-30 05:58] LABS: ANION GAP 8 (5-19); BLOOD UREA NITROGEN 39 mg/dL (7-20); CALCIUM 8.1 mg/dL (8.4-10.2); CARBON DIOXIDE 35 mmol/L (22-30); CHLORIDE 105 mmol/L (98-107); GLUCOSE 193 mg/dL (75-110); PHOSPHORUS 3.5 mg/dL (2.5-4.5); SODIUM 147.9 mmol/L (137-145)
[2018-01-30] MEDS: LEVOTHYROXINE SODIUM 0.088 MG TABLET PO SCH (06:18)
[2018-01-30] MEDS: LANSOPRAZOLE 30 MG TAB.RAP.DR PO SCH (06:18)
[2018-01-30] MEDS: METHYLPREDNISOLONE INJ 40 MG/1 ML SDV IV SCH (06:19)
[2018-01-30] MEDS: INSULIN LISPRO 100 UNIT/ML 3 ML VIAL SUBCUT PRN (08:15)
[2018-01-30] MEDS: IPRATROPIUM/ALBUTEROL 0.5-2.5 MG/3 ML AMPUL NEB SCH (09:09)
--- NOTE | 2018-01-30 10:06 | PDOC DISCHARGE SUMMARY ---
General - Admit/Disc Date/PCP Admission Date/Primary Care Provider: 01/27/18 03:36 ARASELI AGUILAR MD Discharge Date: 01/30/18 - Discharge Diagnosis (1) Acute and chronic respiratory failure Is this a current diagnosis for this admission?: Yes (2) COPD exacerbation Is this a current diagnosis for this admission?: Yes (3) Coronary artery disease Is this a current diagnosis for this admission?: Yes (4) Dementia Is this a current diagnosis for this admission?: Yes (5) Hypothyroidism (acquired) Is this a current diagnosis for this admission?: Yes (6) Type 2 diabetes mellitus Is this a current diagnosis for this admission?: Yes (7) CHF with left ventricular diastolic dysfunction, NYHA class 1 Is this a current diagnosis for this admission?: Yes (8) Essential hypertension Is this a current diagnosis for this admission?: Yes (9) History of breast cancer Is this a current diagnosis for this admission?: Yes (10) History of lung cancer Is this a current diagnosis for this admission?: Yes (11) Lung cancer metastatic to brain Is this a current diagnosis for this admission?: Yes (12) Obesity with serious comorbidity Is this a current diagnosis for this admission?: Yes (13) Opiate dependence Is this a current diagnosis for this admission?: Yes (14) DVT prophylaxis Is this a current diagnosis for this admission?: Yes (15) Hypomagnesemia Is this a current diagnosis for this admission?: Yes (16) Constipation Is this a current diagnosis for this admission?: Yes (17) ARF (acute renal failure) Is this a current diagnosis for this admission?: Yes Summary: resolved - Additional Information Resuscitation Status: Full Code Discharge Diet: Diabetic - low sodium Discharge Activity: Activity As Tolerated Prescriptions: Aspirin [Ecotrin 81 mg EC Tablet] 81 mg PO DAILY 30 Days #30 tabec Lactulose [Cephulac Syrup 20 gm/30 ml Udcup] 20 gm PO TIDP PRN 30 Days #1 bottle PRN Reason: For Constipation Prednisone [Deltasone 20 mg Tablet] 40 mg PO DAILY #7 tablet Home Medications: Albuterol Sulfate [Proair HFA Inhalation Aerosol 8.5 gm MDI] 2 puff IH Q4HP PRN 01/08/18 Amlodipine Besylate [Norvasc 2.5 mg Tablet] 2.5 mg PO DAILY 01/08/18 Carvedilol [Coreg 6.25 mg Tablet] 6.25 mg PO Q12 01/08/18 Glimepiride [Amaryl 1 mg Tablet] 1 mg PO DAILY 01/08/18 Ipratropium/Albuterol Sulfate [Duoneb 3 ml Ampul] 3 ml NEB [id number] 01/08/18 Levalbuterol HCl [Xopenex Neb 1.25 mg/3 ml Ampul] 1.25 mg NEB RTQ4HP PRN Lisinopril [Zestril] 5 mg PO DAILY 01/08/18 Magnesium Oxide [Mag-Ox 400 mg Tablet] 400 mg PO DAILY 01/08/18 Metformin HCl [Glucophage XR 500 mg Tablet] 500 mg PO BID 01/08/18 Nystatin 1 applic TOP QID 01/08/18 Ondansetron [Zofran Odt] 8 mg PO Q8HP PRN 01/08/18 Oxycodone HCl/Acetaminophen [Percocet 5-325 mg Tablet] 1 tab PO BID 01/08/18 Pantoprazole Sodium [Protonix] 40 mg PO DAILY 01/08/18 Tiotropium Bailey [Spiriva Handihaler 18 mcg/dose (30 Dose)] 18 mcg IH DAILY Tramadol HCl [Ultram 50 mg Tablet] 50 mg PO BIDP PRN 01/08/18 Lactobacillus Acidophilus [Bacid 250 mg Tablet] 500 mg PO BID tab 01/13/18 Levothyroxine Sodium [Synthroid 0.088 mg Tablet] 0.088 mg PO Q6AM tablet Aspirin [Ecotrin 81 mg EC Tablet] 81 mg PO DAILY 30 Days #30 tabec 01/30/18 Fluticasone/Salmeterol [Advair 250-50 Diskus 14 Dose/Diskus] 1 inh IH Q12 inhaler 01/30/18 Furosemide [Lasix 40 mg Tablet] 40 mg PO DAILY #0 tab 01/30/18 Lactulose [Cephulac Syrup 20 gm/30 ml Udcup] 20 gm PO TIDP PRN 30 Days #1 bottle 01/30/18 Prednisone [Deltasone 20 mg Tablet] 40 mg PO DAILY #7 tablet 01/30/18 History of Present Illness Patient complains of: dyspnea History of Present Illness: 72 yr old female with Dementia Steroid and O2 dependent COPD Chronic hypoxic respiratory failure Chronic pain CKD III H/o Lung and brain cancer Hypertension Hypothyroidism Recurrent MDR UTIs Diabetes CAD She presented to the hospital with dyspnea and was diagnosed with COPD exacerbation and was started on BiPAP, steroids and abtibiotics. She is doing much better now and is stable for discharge home. Physical Exam Vital Signs: Temp Pulse Resp BP Pulse Ox 98.0 F 86 16 122/85 100 01/30/18 06:59 01/30/18 09:09 01/30/18 09:09 01/30/18 06:59 01/30/18 09:09 Intake & Output 01/29/18 01/30/18 01/31/18 06:59 06:59 06:59 Intake Total 1040 2318 Output Total 450 Balance 590 2318 Weight 83.3 kg 84 kg General appearance: PRESENT: no acute distress Respiratory exam: PRESENT: symmetrical, unlabored Neurological exam: PRESENT: alert, awake Results Laboratory Results: 01/30/18 05:21 01/30/18 05:21 01/30/18 01/30/18 05:21 05:21 WBC 4.0 RBC 2.41 L Hgb 8.2 L Hct 23.5 L MCV 97 MCH 34.0 H MCHC 35.0 RDW 16.5 H Plt Count 283 Sodium 147.9 H Potassium 4.0 Chloride 105 Carbon Dioxide 35 H Anion Gap 8 BUN 39 H Creatinine 1.35 H Est GFR ( Amer) 46 L Est GFR (Non-Af Amer) 38 L Glucose 193 H Calcium 8.1 L Phosphorus 3.5 Magnesium 1.9 01/28/18 05:48 NT-Pro-B Natriuret Pep 1680 H Impressions: Chest X-Ray 01/27/18 00:48 IMPRESSION: 1. Minimal left basilar opacities may be related to subsegmental atelectasis or developing pneumonia. Qualifiers - * PATIENT BEING DISCHARGED WITH ANY OF THE FOLLOWING DIAGNOSIS: No Plan Time Spent: Greater than 30 Minutes
[2018-01-30 10:17] VITALS: BP 104/54
== END 2018-01-30 11:10 | disposition home health service (06) | DRG 190 ==
LOC: ER 00:40 → EH 03:36 → 3W 05:47
PROVIDERS: ADMIT Internal Medicine; ATTEND Internal Medicine
PROC: 5A09557 Assistance with Respiratory Ventilation, Greater than 96 Consecutive Hours, Continuous Positive Airway Pressure (ICD-10-PCS; principal; 2018-01-27)
DX: J44.1 Chronic obstructive pulmonary disease with (acute) exacerbation (principal); J96.21 Acute and chronic respiratory failure with hypoxia; I13.0 Hypertensive heart and chronic kidney disease with heart failure and stage 1 through stage 4 chronic kidney disease, or unspecified chronic kidney disease; F11.20 Opioid dependence, uncomplicated; Z68.41 Body mass index [BMI] 40.0-44.9, adult; I50.32 Chronic diastolic (congestive) heart failure; C79.31 Secondary malignant neoplasm of brain; N17.9 Acute kidney failure, unspecified; F32.9 Major depressive disorder, single episode, unspecified; G47.33 Obstructive sleep apnea (adult) (pediatric); E03.9 Hypothyroidism, unspecified; K21.9 Gastro-esophageal reflux disease without esophagitis; F03.90 Unspecified dementia, unspecified severity, without behavioral disturbance, psychotic disturbance, mood disturbance, and anxiety; E11.9 Type 2 diabetes mellitus without complications; E83.42 Hypomagnesemia; K59.00 Constipation, unspecified; I25.10 Atherosclerotic heart disease of native coronary artery without angina pectoris; G89.29 Other chronic pain; M19.90 Unspecified osteoarthritis, unspecified site; Z85.3 Personal history of malignant neoplasm of breast; N18.3 Chronic kidney disease, stage 3 (moderate); E11.22 Type 2 diabetes mellitus with diabetic chronic kidney disease; Z85.118 Personal history of other malignant neoplasm of bronchus and lung; Z80.1 Family history of malignant neoplasm of trachea, bronchus and lung; Z88.8 Allergy status to other drugs, medicaments and biological substances; Z88.0 Allergy status to penicillin; Z88.3 Allergy status to other anti-infective agents; Z99.81 Dependence on supplemental oxygen; Z87.891 Personal history of nicotine dependence; Z90.49 Acquired absence of other specified parts of digestive tract; Z79.52 Long term (current) use of systemic steroids; Z79.84 Long term (current) use of oral hypoglycemic drugs; Z79.899 Other long term (current) drug therapy; I25.2 Old myocardial infarction; Z87.440 Personal history of urinary (tract) infections
CPT/HCPCS: 36415; 71045; 80048; 81001; 82962; 83735; 83880; 84100; 85025; 85027; 87040; 93005; 93010; 94640; 94660; 96365; 99285; J1644; J1815; J1956; J2920; J3475; J3490; J7030; J7620; S0119

== ENCOUNTER 2018-02-13 18:46 | Inpatient (IN) | payer MEDICARE, OTHER ==
[2018-02-13] MEDS ORDERED: IPRATROPIUM/ALBUTEROL 0.5-2.5 MG/3 ML AMPUL NEB ONE ×2 (18:55→19:07)
--- NOTE | 2018-02-13 19:10 | ER Document Report ---
ED General - General Stated Complaint: BLOOD PRESSURE ISSUES Time Seen by Provider: 02/13/18 18:58 Mode of Arrival: Medic Information source: Patient Notes: 72-year-old female history of COPD recent pneumonia who was recently admitted presents with EMS for complaints of shortness of breath. Patient is on baseline 2 L nasal cannula, was found satting 88% on 3 L notes worsening productive cough shortness of breath. Patient was noted to be tachycardic TRAVEL OUTSIDE OF THE [place] IN LAST 30 DAYS: No - HPI Onset: Last week Onset/Duration: Worse Quality of pain: No pain Severity: Moderate Pain Level: Denies Associated symptoms: Nonproductive cough, Shortness of breath Exacerbated by: Walking, Coughing Relieved by: Denies Similar symptoms previously: Yes Recently seen / treated by doctor: Yes - Related Data Allergies/Adverse Reactions: azithromycin Allergy (Verified 02/13/18 19:28) amoxicillin [Amoxicillin] Adverse Reaction (Verified 02/13/18 19:28) visual hallucinations erythromycin base [Erythromycin Base] Adverse Reaction (Verified 02/13/18 19:28) visual hallucinations Potassium Clavulanate * [From Augmentin] Adverse Reaction (Verified 02/13/18 19: 28) visual hallucinations Past Medical History - Social History Smoking Status: Former Smoker Cigarette use (# per day): No Chew tobacco use (# tins/day): No Smoking Education Provided: No Family History: COPD, Malignancy - Lung cancer - Past Medical History Cardiac Medical History: Reports: Hx Congestive Heart Failure, Hx Coronary Artery Disease, Hx Heart Attack, Hx Hypertension Denies: Hx DVT, Hx Hypercholesterolemia, Hx Pulmonary Embolism Pulmonary Medical History: Reports: Hx Asthma, Hx Bronchitis, Hx COPD - 2 L nasal home oxygen, Hx Pneumonia, Hx Respiratory Failure - Chronic respiratory failure Denies: Hx Sleep Apnea, Hx Tuberculosis Neurological Medical History: Denies: Hx Seizures Endocrine Medical History: Reports: Hx Diabetes Mellitus Type 2, Hx Hypothyroidism. 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 Denies: Hx Cirrhosis, Hx Hepatitis, Hx Ulcer Musculoskeletal Medical History: Reports Hx Arthritis, Denies Hx Multiple Sclerosis, Reports Hx Musculoskeletal Deformity, Reports Hx Musculoskeletal Trauma Psychiatric Medical History: Reports: Hx Dementia, Hx Depression Denies: Hx Bipolar Disorder, Hx Schizophrenia Infectious Medical History: Reports: Hx C-Diff. Denies: Hx Hepatitis Past Surgical History: Reports: Hx Cholecystectomy, Hx Orthopedic Surgery - Foot surgery, Other - cataract bilateral - Immunizations Hx Diphtheria, Pertussis, Tetanus Vaccination: Yes Hx Pneumococcal Vaccination: 08/30/12 Review of Systems - Review of Systems Notes: REVIEW OF SYSTEMS: CONSTITUTIONAL : Admits to recent pneumonia EENT: Denies eye, ear, throat, or mouth pain or symptoms. Denies nasal or sinus congestion or discharge. Denies throat, tongue, or mouth swelling or difficulty swallowing. CARDIOVASCULAR: Denies chest pain. Denies palpitations or racing or irregular heart beat. Denies ankle edema. RESPIRATORY: Admits shortness breath difficulty breathing GASTROINTESTINAL: Denies abdominal pain or distention. Denies nausea, vomiting , or diarrhea. Denies blood in vomitus, stools, or per rectum. Denies black, tarry stools. Denies constipation. GENITOURINARY: Denies difficulty urinating, painful urination, burning, frequency, blood in urine, or discharge. FEMALE GENITOURINARY: Denies vaginal bleeding, heavy or abnormal periods, irregular periods. Denies vaginal discharge or odor. MUSCULOSKELETAL: Denies back or neck pain or stiffness. Denies joint pain or swelling. SKIN: Denies rash, lesions or sores. HEMATOLOGIC : Denies easy bruising or bleeding. LYMPHATIC: Denies swollen, enlarged glands. NEUROLOGICAL: Denies confusion or altered mental status. Denies passing out or loss of consciousness. Denies dizziness or lightheadedness. Denies headache. Denies weakness or paralysis or loss of use of either side. Denies problems with gait or speech. Denies sensory loss, numbness, or tingling. Denies seizures. PSYCHIATRIC: Denies anxiety or stress. Denies depression, suicidal ideation, or homicidal ideation. ALL OTHER SYSTEMS REVIEWED AND NEGATIVE. PHYSICAL EXAMINATION: GENERAL: Ill-appearing female in moderate respiratory distress HEAD: Atraumatic, normocephalic. EYES: Pupils equal round and reactive to light, extraocular movements intact, conjunctiva are normal. ENT: Nares patent, oropharynx clear without exudates. Moist mucous membranes. NECK: Normal range of motion, supple without lymphadenopathy LUNGS: Coarse breath sounds all throughout HEART: Tachycardic ABDOMEN: Soft, nontender, nondistended abdomen. No guarding, no rebound. No masses appreciated. Female : deferred Musculoskeletal: Normal range of motion, no pitting or edema. No cyanosis. NEUROLOGICAL: Drowsy PSYCH: Normal mood, normal affect. SKIN: Warm, Dry, normal turgor, no rashes or lesions noted. Dictation was performed using [email or web address] voice recognition software Physical Exam - Vital signs Vitals: Temp Pulse Resp BP Pulse Ox 99.8 F 145 H 28 H 113/64 91 L 02/13/18 18:55 02/13/18 18:55 02/13/18 18:55 02/13/18 18:55 02/13/18 18:55 Course - Re-evaluation Re-evalutation: 02/13/18 19:09 Fortunately patient is hypoxic and tachycardic, I have to give her further duo nebs which will obviously increase her heart rate. My concern is for another pneumonia versus COPD exacerbation. Patient in septic workup 02/13/18 20:34 Patient noted to be hypokalemic tachycardic supplementation started patient placed on BiPAP will be admitted - Vital Signs Vital signs: Temp Pulse Resp BP Pulse Ox 98.9 F 145 H 20 118/81 99 02/13/18 20:16 02/13/18 18:55 02/13/18 20:21 02/13/18 20:21 02/13/18 20:21 - Laboratory Result Diagrams: 02/13/18 19:07 02/13/18 19:07 Laboratory results interpreted by me: 02/13/18 02/13/18 02/13/18 19:07 19:07 19:07 WBC 21.5 H RBC 3.58 L Hgb 11.5 L Hct 34.7 L RDW 16.5 H Seg Neuts % (Manual) 93 H Lymphocytes % (Manual) 0 L Monocytes % (Manual) 2 L Abs Neuts (Manual) 20.6 H Abs Lymphs (Manual) 0.0 L VBG pCO2 VBG HCO3 Potassium 2.7 L* Chloride 86 L Carbon Dioxide 38 H BUN 25 H Creatinine 1.59 H Est GFR ( Amer) 38 L Est GFR (Non-Af Amer) 32 L Glucose 149 H Lactic Acid 2.3 H Creatine Kinase 20 L 07/17/18 19:07 WBC RBC Hgb Hct RDW Seg Neuts % (Manual) Lymphocytes % (Manual) Monocytes % (Manual) Abs Neuts (Manual) Abs Lymphs (Manual) VBG pCO2 71.2 H* VBG HCO3 39.4 H Potassium Chloride Carbon Dioxide BUN Creatinine Est GFR ( Amer) Est GFR (Non-Af Amer) Glucose Lactic Acid Creatine Kinase - Diagnostic Test Radiology reviewed: Image reviewed Discharge - Discharge Clinical Impression: COPD (chronic obstructive pulmonary disease) Qualifiers: COPD type: COPD with acute exacerbation Qualified Code(s): J44.1 - Chronic obstructive pulmonary disease with (acute) exacerbation Pneumonia Qualifiers: Pneumonia type: due to unspecified organism Laterality: bilateral Lung location : lower lobe of lung Qualified Code(s): J18.1 - Lobar pneumonia, unspecified organism Condition: Fair Disposition: ADMITTED INPATIENT Admitting Provider: Hospitalist Unit Admitted: IMCU Referrals: ARASELI AGUILAR MD [Primary Care Provider] - Follow up as needed
[2018-02-13] MEDS ORDERED: METOCLOPRAMIDE HCL INJ/PF 10 MG/2 ML SDV IV ONE (19:12)
[2018-02-13] MEDS ORDERED: METOCLOPRAMIDE HCL INJ/PF 10 MG/2 ML SDV ONE (19:14)
[2018-02-13 19:23] LABS: VENOUS BLOOD BASE EXCESS 9.8 mmol/L; VENOUS BLOOD HCO3 39.4 mmol/L (20-32); VENOUS BLOOD PH 7.36 (7.30-7.42)
[2018-02-13 19:29] LABS: HEMATOCRIT 34.7 % (36.0-47.0); HEMOGLOBIN 11.5 g/dL (12.0-15.5); INTERNATIONAL RATION (INR) 0.87; MEAN CORPUSCULAR HEMOGLOBIN 32.3 pg (27.0-33.4); MEAN CORPUSCULAR HGB CONC 33.3 g/dL (32.0-36.0); MEAN CORPUSCULAR VOLUME 97 fl (80-97); PLATELET COUNT 339 10^3/uL (150-450); PROTHROMBIN TIME 12.3 SEC (11.4-15.4); RED BLOOD COUNT 3.58 10^6/uL (3.72-5.28); RED CELL DISTRIBUTION WIDTH 16.5 % (11.5-14.0); WHITE BLOOD COUNT 21.5 10^3/uL (4.0-10.5)
[2018-02-13] MEDS ORDERED: NORMAL SALINE 1000 ML 1,000 ML IV ONE (19:34)
[2018-02-13] MEDS ORDERED: CEFTRIAXONE INJ 1000 MG VIAL IV ONE (19:35)
[2018-02-13 19:41] LABS: ALANINE AMINOTRANSFERASE 24 U/L (9-52); ALBUMIN 3.7 g/dL (3.5-5.0); ALKALINE PHOSPHATASE 78 U/L (38-126); ANION GAP 15 (5-19); ASPARTATE AMINO TRANSFERASE 24 U/L (14-36); BILIRUBIN,DIRECT 0.4 mg/dL (0.0-0.4); BILIRUBIN,TOTAL 0.7 mg/dL (0.2-1.3); BLOOD UREA NITROGEN 25 mg/dL (7-20); CALCIUM 9.3 mg/dL (8.4-10.2); CARBON DIOXIDE 38 mmol/L (22-30); CHLORIDE 86 mmol/L (98-107); CREATINE KINASE 20 U/L (30-135); GLUCOSE 149 mg/dL (75-110); SODIUM 139.4 mmol/L (137-145); TOTAL PROTEIN 6.6 g/dL (6.3-8.2); VENOUS BLOOD PCO2 71.2 mmHg (35-63)
[2018-02-13 19:43] LABS: POTASSIUM 2.7 mmol/L (3.6-5.0)
[2018-02-13] MEDS ORDERED: POTASSIUM CHLORIDE 20 MEQ/15 ML UDCUP PO ONE (19:46)
[2018-02-13 19:52] LABS: CREATINE KINASE MB 0.7 ng/mL (<4.55); TROPONIN I 0.026 ng/mL
[2018-02-13 19:57] LABS: ABSOLUTE MONOCYTES # (MANUAL) 0.4 10^3/uL (0.1-1.4); ABSOLUTE NEUTROPHILS# (MANUAL) 20.6 10^3/uL (1.7-8.2); ANISOCYTOSIS 1+; BAND NEUTROPHILS % (MANUAL) 3 % (3-5); BASOPHILS % (MANUAL) 0 % (0-2); EOSINOPHILS % (MANUAL) 2 % (0-6); LYMPHOCYTES % (MANUAL) 0 % (13-45); MONOCYTES % (MANUAL) 2 % (3-13); PLATELET COMMENT ADEQUATE; SEGMENTED NEUTROPHILS % (MAN) 93 % (42-78); TOTAL CELLS COUNTED 100; TOXIC VACUOLATION PRESENT
--- NOTE | 2018-02-13 20:19 | RADIOLOGY REPORT (SQ) ---
EXAM DESCRIPTION: CHEST 2 VIEWS COMPLETED DATE/TIME: 02/13/2018 8:03 pm REASON FOR STUDY: sob copd COMPARISON: 01/27/2018. 12/02/2017. CT chest 11/28/2017. TECHNIQUE: Frontal and lateral radiographic views of the chest acquired. NUMBER OF VIEWS: Two view. LIMITATIONS: None. FINDINGS: LUNGS AND PLEURA: Chronic left basilar scar. Chronic mild distortion about the right hilu m, nonprogressive. No new infiltrates. No pleural effusion or pneumothorax. MEDIASTINUM AND HILAR STRUCTURES: No masses or contour abnormalities. HEART AND VASCULAR STRUCTURES: Heart normal size. No evidence for failure. BONES: No acute findings. HARDWARE: None in the chest. OTHER: No other significant finding. IMPRESSION: Chronic lung changes. No acute cardiopulmonary disease suggested. TECHNICAL DOCUMENTATION: JOB ID: [id number] [employer]- All Rights Reserved Reading location - IP/workstation name: [email or web address]
[2018-02-13] MEDS: POTASSI CL 20 MEQ/50 ML RIDER 20 MEQ/50 ML RTUPB IV SCH (21:10)
[2018-02-13] MEDS ORDERED: ACETAMINOPHEN 325 MG TABLET PO PRN (22:15)
--- NOTE | 2018-02-13 22:20 | EKG REPORT ---
SEVERITY:- ABNORMAL ECG - SINUS TACHYCARDIA RBBB AND LAFB : Confirmed by: Mercedes Solomon 13-Feb-2018 22:19:18
[2018-02-13] MEDS ORDERED: CEFEPIME 2 GM/D5W RTU 2 GM/50 ML RTUPB IV ONE (22:45)
[2018-02-13] MEDS ORDERED: LEVOFLOXACIN 500 MG/D5W RTU 500 MG/100 ML RTUPB IV ONE (23:00)
[2018-02-14] MEDS: IPRATROPIUM/ALBUTEROL 0.5-2.5 MG/3 ML AMPUL NEB PRN ×3 (00:24→19:55)
[2018-02-14] MEDS: POTASSI CL 20 MEQ/50 ML RIDER 20 MEQ/50 ML RTUPB IV SCH (00:55)
[2018-02-14] MEDS ORDERED: METHYLPREDNISOLONE ACETATE INJ 40 MG/1 ML ML IM SCH (02:00)
[2018-02-14] MEDS ORDERED: DEXTROSE 50%-WATER 25 GM/50 ML DISP.SYRIN IV PRN ×2 (02:20)
[2018-02-14] MEDS ORDERED: GLUCAGON,HUMAN RECOMB 1 MG INJ IM PRN (02:20)
[2018-02-14] MEDS ORDERED: DEXTROSE 40% GEL 15 GM TUBE PO PRN ×2 (02:20)
--- NOTE | 2018-02-14 02:20 | PDOC H&P ---
History of Present Illness Admission Date/PCP: 02/13/18 21:01 ARASELI AGUILAR MD Patient complains of: Shortness of breath History of Present Illness: TRENTON MCCOY is a 72 year old female who has chronic respiratory failure on 2 L oxygen via nasal cannula secondary to emphysema, comes to the emergency department with progressive shortness of breath, cough with greenish sputum, wheezing. EMS found her saturating 84% on 3 L oxygen via nasal cannula. Apparently did not have any fever or chills but complains of some dizziness and pleuritic chest pain on the left side. VBG in the ED with a CO2 of 71 with her baseline is in the 50s, patient was initiated on BiPAP. Patient is a very poor historian apparently has diagnosis of dementia. Daily tachycardia with a pulse of 145, respiration 28. White blood cells count of 21.5 with a left shift and bands. Patient is a catheter for sepsis. Chest x -ray does not show infiltrates but she is highly suspicious for pneumonia. Denies abdominal pain, changes in her urine or bowel movements. Past Medical History Cardiac Medical History: Reports: Congestive Heart Failure, Coronary Artery Disease, Myocardial Infarction, Hypertension Denies: DVT, Hyperlipidema, Pulmonary Embolism Pulmonary Medical History: Reports: Asthma, Bronchitis, Chronic Obstructive Pulmonary Disease (COPD) - 2 L nasal home oxygen, Pneumonia, Respiratory Failure - Chronic respiratory failure Denies: Sleep Apnea, Tuberculosis Neurological Medical History: Denies: Seizures Endocrine Medical History: Reports: Diabetes Mellitus Type 2, Hypothyroidism Denies: Diabetes Mellitus Type 1, Hyperthyroidism Renal/ Medical History: Denies: End Stage Renal Disease Malignancy Medical History: Reports: Brain Cancer - Lung cancer with brain metastases, 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 GI Medical History: Reports: Gastroesophageal Reflux Disease Denies: Cirrhosis, Hepatitis Musculoskeltal Medical History: Reports: Arthritis Psychiatric Medical History: Reports: Dementia, Depression Denies: Bipolar Disorder Hematology: Reports: Anemia, Bleeding Tendencies Infectious Medical History: Reports: Clostridium Difficile Past Surgical History Past Surgical History: Reports: Cholecystectomy, Orthopedic Surgery - Foot surgery, Other - cataract bilateral Social History Smoking Status: Former Smoker Frequency of Alcohol Use: None Hx Recreational Drug Use: No Drugs: None Hx Prescription Drug Abuse: No Family History Family History: COPD, Malignancy - Lung cancer Parental Family History Reviewed: No Children Family History Reviewed: NA Sibling(s) Family History Reviewed.: NA Medication/Allergy Home Medications: Albuterol Sulfate [Proair HFA Inhalation Aerosol 8.5 gm MDI] 2 puff IH Q4HP PRN 01/08/18 Amlodipine Besylate [Norvasc 2.5 mg Tablet] 2.5 mg PO DAILY 01/08/18 Carvedilol [Coreg 6.25 mg Tablet] 6.25 mg PO Q12 01/08/18 Glimepiride [Amaryl 1 mg Tablet] 1 mg PO DAILY 01/08/18 Ipratropium/Albuterol Sulfate [Duoneb 3 ml Ampul] 3 ml NEB [id number] 01/08/18 Levalbuterol HCl [Xopenex Neb 1.25 mg/3 ml Ampul] 1.25 mg NEB RTQ4HP PRN Lisinopril [Zestril] 5 mg PO DAILY 01/08/18 Magnesium Oxide [Mag-Ox 400 mg Tablet] 400 mg PO DAILY 01/08/18 Metformin HCl [Glucophage XR 500 mg Tablet] 500 mg PO BID 01/08/18 Nystatin 1 applic TOP QID 01/08/18 Ondansetron [Zofran Odt] 8 mg PO Q8HP PRN 01/08/18 Oxycodone HCl/Acetaminophen [Percocet 5-325 mg Tablet] 1 tab PO BID 01/08/18 Pantoprazole Sodium [Protonix] 40 mg PO DAILY 01/08/18 Tiotropium Jordan [Spiriva Handihaler 18 mcg/dose (30 Dose)] 18 mcg IH DAILY Tramadol HCl [Ultram 50 mg Tablet] 50 mg PO BIDP PRN 01/08/18 Lactobacillus Acidophilus [Bacid 250 mg Tablet] 500 mg PO BID tab 01/13/18 Levothyroxine Sodium [Synthroid 0.088 mg Tablet] 0.088 mg PO Q6AM tablet Aspirin [Ecotrin 81 mg EC Tablet] 81 mg PO DAILY 30 Days #30 tabec 01/30/18 Fluticasone/Salmeterol [Advair 250-50 Diskus 14 Dose/Diskus] 1 inh IH Q12 inhaler 01/30/18 Furosemide [Lasix 40 mg Tablet] 40 mg PO DAILY #0 tab 01/30/18 Lactulose [Cephulac Syrup 20 gm/30 ml Udcup] 20 gm PO TIDP PRN 30 Days #1 bottle 01/30/18 Prednisone [Deltasone 20 mg Tablet] 40 mg PO DAILY #7 tablet 01/30/18 Allergies/Adverse Reactions: azithromycin Allergy (Verified 02/13/18 19:28) amoxicillin [Amoxicillin] Adverse Reaction (Verified 02/13/18 19:28) visual hallucinations erythromycin base [Erythromycin Base] Adverse Reaction (Verified 02/13/18 19:28) visual hallucinations Potassium Clavulanate * [From Augmentin] Adverse Reaction (Verified 02/13/18 19: 28) visual hallucinations Review of Systems Review of Systems: As outlined in the HPI, all others negative Physical Exam Vital Signs: Temp Pulse Resp BP Pulse Ox 97.9 F 120 H 20 98/56 L 100 02/14/18 00:30 02/14/18 00:31 02/14/18 00:30 02/14/18 00:30 02/14/18 00:56 Pulse Oximeter Continuous Start: 02/13/18 22: 09 Freq: RTQ4 Status: Active Document 02/14/18 00:56 CMI (Rec: 02/14/18 00:56 [email or web address] [email or web address]) Pulse Oximetry Assessment Oxygen Saturation (92-100) 100 Oxygen Delivery Method Bi-pap Fraction of Inspired Oxygen (FIO2) 30 Equipment Usage Initial Set Up Continuous Pulse Oximeter 24 Hour Charge Charge Now Continuous SpO2 Machine # 8 Intake & Output 02/12/18 02/13/18 02/14/18 06:59 06:59 06:59 Weight 74.6 kg Additional comments: General appearance: Well-developed, well-nourished, alert and cooperative, and appears to be in mild acute distress secondary to dyspnea. Wearing BiPAP Head: Normocephalic Eyes: PEERL, EOMI, vision is grossly intact. Ears: External auditory canal and tympanic membranes clear, hearing grossly intact. Nose: No nasal discharge. Throat: Oral cavity and pharynx normal and dry. No inflammation, swelling, exudate or lesions. Neck: Neck supple, nontender without lymphadenopathy, masses or thyromegaly. Cardiac: Normal S1 and S2. No S3, S4 or murmurs. Rhythm is regular and tachycardic. There is no peripheral edema, cyanosis or pallor. Extremities are warm and well perfused. Capillary refill is less than 2 seconds. No carotid bruits. Lungs: Bilateral diminished breath sounds with coarse rales, moderate rhonchi,. Inspiratory and expiratory wheezing. Not using accessory muscles. Abdomen: Positive bowel sounds. Soft. Nondistended, nontender. No guarding or rebound. No masses. No hepatosplenomegaly Extremities: No significant deformity or joint abnormality. No edema. Peripheral pulses intact. No varicosities. Neurological: Cranial nerves II through XII grossly intact. Strength and sensation symmetric and intact throughout. Reflexes 2+ throughout. Skin: Skin pale, normal texture and turgor with no lesions or eruptions, warm and dry. Psychiatric: The mental examination revealed the patient was oriented to person , not to oriented to time or confused at times, unable to provide reliable information Results Laboratory Results: 02/13/18 22:55 Lactic Acid 1.5 02/13/18 02/13/18 02/13/18 19:07 19:07 19:07 WBC 21.5 H RBC 3.58 L Hgb 11.5 L Plt Count 339 Seg Neuts % (Manual) 93 H Band Neutrophils % 3 PT 12.3 INR 0.87 VBG pH VBG pCO2 VBG HCO3 Sodium 139.4 Potassium 2.7 L* Chloride 86 L BUN 25 H Creatinine 1.59 H Glucose 149 H Lactic Acid Total Bilirubin 0.7 Direct Bilirubin 0.4 AST 24 ALT 24 Alkaline Phosphatase 78 Creatine Kinase 20 L CK-MB (CK-2) Troponin I 02/13/18 02/13/18 02/13/18 19:07 19:07 19:07 WBC RBC Hgb Plt Count Seg Neuts % (Manual) Band Neutrophils % PT INR VBG pH 7.36 VBG pCO2 71.2 H* VBG HCO3 39.4 H Sodium Potassium Chloride BUN Creatinine Glucose Lactic Acid 2.3 H Total Bilirubin Direct Bilirubin AST ALT Alkaline Phosphatase Creatine Kinase CK-MB (CK-2) 0.70 Troponin I 0.026 02/13/18 22:55 WBC RBC Hgb Plt Count Seg Neuts % (Manual) Band Neutrophils % PT INR VBG pH VBG pCO2 VBG HCO3 Sodium Potassium Chloride BUN Creatinine Glucose Lactic Acid 1.5 Total Bilirubin Direct Bilirubin AST ALT Alkaline Phosphatase Creatine Kinase CK-MB (CK-2) Troponin I Impressions: Chest X-Ray 02/13/18 18:59 IMPRESSION: Chronic lung changes. No acute cardiopulmonary disease suggested. Assessment & Plan - Diagnosis (1) HCAP (healthcare-associated pneumonia) Is this a current diagnosis for this admission?: Yes Plan: Patient comes with acute hypoxic hypercapnic respiratory failure, initiated on BiPAP in the emergency department. Patient meets the criteria for sepsis with leukocytosis, tachypnea, tachycardia, even though the chest x-ray does not show any infiltrates I have high suspicion for pneumonia. We will start the patient on IV cefepime and Levaquin. RT consult, IV Solu-Medrol, nebulizer treatments as needed. We will continue with BiPAP and wean her in the morning if possible. Pulmonary toilet, incentive spirometry. Please follow blood cultures. (2) COPD (chronic obstructive pulmonary disease) Qualifiers: COPD type: COPD with acute exacerbation Qualified Code(s): J44.1 - Chronic obstructive pulmonary disease with (acute) exacerbation Is this a current diagnosis for this admission?: Yes Plan: COPD is highly associated with her clinical pneumonia. As per assessment #1. (3) Lactic acidosis Is this a current diagnosis for this admission?: Yes Plan: Initial lactic acid 2.3, repeated 1.5 after IV hydration. (4) Hypokalemia Is this a current diagnosis for this admission?: Yes Plan: Initial potassium 2.7, patient has received IV and p.o. replacement. We will reassess her potassium levels in the morning. (5) Respiratory failure with hypoxia and hypercapnia Is this a current diagnosis for this admission?: Yes Plan: Patient with chronic respiratory failure on 2 L oxygen via nasal cannula at home became hypoxic saturating 84% in the liters oxygen and hypercapnia with a CO2 of 71. As per assessment #1. (6) MARY LOU (acute kidney injury) Is this a current diagnosis for this admission?: Yes Plan: BUN 25 and creatinine 1.59, slightly increased from her baseline, likely improving after IV fluids. Will reassess renal panel in the morning. (7) Diabetes mellitus type 2 in obese Is this a current diagnosis for this admission?: Yes Plan: We will place on hold her metformin. Continue with Amaryl. Will place the patient on Accu-Cheks q. before meals and at bedtime, insulin lispro sliding scale and hypoglycemia protocol. (8) Hypothyroid Qualifiers: Hypothyroidism type: unspecified Qualified Code(s): E03.9 - Hypothyroidism , unspecified Is this a current diagnosis for this admission?: Yes Plan: Continue with Synthroid (9) Dementia Qualifiers: Dementia type: unspecified type Dementia behavioral disturbance: without behavioral disturbance Qualified Code(s): F03.90 - Unspecified dementia without behavioral disturbance Is this a current diagnosis for this admission?: Yes Plan: Without behavioral disorder (10) Coronary artery disease Qualifiers: Coronary Disease-Associated Artery/Lesion type: barrow artery Is this a current diagnosis for this admission?: Yes Plan: She does not have active cardiac symptoms. Continue with home medications. - Inpatient Certification Based on my medical assessment, after consideration of the patient's comorbidities, presenting symptoms, or acuity I expect that the services needed warrant INPATIENT care.: Yes I certify that my determination is in accordance with my understanding of Medicare's requirements for reasonable and necessary INPATIENT services [42 CFR 412.3e].: Yes Medical Necessity: Significant Comorbidiites Make Outpatient Treatment Too Risky
[2018-02-14] MEDS ORDERED: METHYLPREDNISOLONE INJ 1000 MG VIAL ONE (03:06)
[2018-02-14] MEDS ORDERED: METHYLPREDNISOLONE ACETATE INJ 40 MG/1 ML ML ONE (03:38)
[2018-02-14] MEDS: METHYLPREDNISOLONE INJ 40 MG/1 ML SDV IV SCH ×3 (05:15→22:45)
[2018-02-14 05:38] LABS: HEMATOCRIT 26.4 % (36.0-47.0); MEAN CORPUSCULAR HEMOGLOBIN 33.1 pg (27.0-33.4); MEAN CORPUSCULAR HGB CONC 34.1 g/dL (32.0-36.0); MEAN CORPUSCULAR VOLUME 97 fl (80-97); PLATELET COUNT 216 10^3/uL (150-450); RED BLOOD COUNT 2.72 10^6/uL (3.72-5.28); RED CELL DISTRIBUTION WIDTH 16.5 % (11.5-14.0); WHITE BLOOD COUNT 14.7 10^3/uL (4.0-10.5)
[2018-02-14 06:06] LABS: ABSOLUTE MONOCYTES # (MANUAL) 0.1 10^3/uL (0.1-1.4); ABSOLUTE NEUTROPHILS# (MANUAL) 14.4 10^3/uL (1.7-8.2); BASOPHILS % (MANUAL) 0 % (0-2); EOSINOPHILS % (MANUAL) 1 % (0-6); LYMPHOCYTES % (MANUAL) 0 % (13-45); MONOCYTES % (MANUAL) 1 % (3-13); SEGMENTED NEUTROPHILS % (MAN) 98 % (42-78); TOTAL CELLS COUNTED 100
[2018-02-14 06:10] LABS: ANISOCYTOSIS 1+; PLATELET COMMENT ADEQUATE
[2018-02-14 08:18] LABS: ANION GAP 10 (5-19); BLOOD UREA NITROGEN 26 mg/dL (7-20); CALCIUM 8.3 mg/dL (8.4-10.2); CARBON DIOXIDE 34 mmol/L (22-30); CHLORIDE 97 mmol/L (98-107); GLUCOSE 49 mg/dL (75-110); POTASSIUM 3.6 mmol/L (3.6-5.0); SODIUM 140.7 mmol/L (137-145)
[2018-02-14] MEDS: CEFEPIME 2 GM/D5W RTU 2 GM/50 ML RTUPB IV SCH ×2 (11:55→22:45)
[2018-02-14] MEDS: ENOXAPARIN SODIUM INJ 40 MG/0.4 ML DISP.SYRIN SUBCUT SCH (12:04)
[2018-02-14] MEDS: GUAIFENESIN 600 MG TABLET.SA PO SCH ×2 (12:13→22:45)
--- NOTE | 2018-02-14 16:54 | PDOC PROGRESS REPORT ---
Subjective Progress Note for:: 02/14/18 Subjective:: The patient is asleep on bipap. She stirs to verbal and tactile stimulation, but quickly goes back to sleep. Reason For Visit: HCAP Physical Exam Vital Signs: Temp Pulse Resp BP Pulse Ox 98.4 F 100 20 105/56 L 96 02/14/18 12:00 02/14/18 14:00 02/14/18 12:00 02/14/18 12:00 02/14/18 12:00 Pulse Oximeter Continuous Start: 02/13/18 22: 09 Freq: RTQ4 Status: Active Document 02/14/18 12:00 [facility] (Rec: 02/14/18 14:39 CW [email or web address]) Pulse Oximetry Assessment Oxygen Saturation (92-100) 92 Oxygen Delivery Method Bi-pap Fraction of Inspired Oxygen (FIO2) 30 Equipment Usage Equipment in Use Continuous SpO2 Machine # 8 Intake & Output 02/13/18 02/14/18 02/15/18 06:59 06:59 06:59 Intake Total 100 Balance 100 Weight 74.6 kg 74.6 kg General appearance: PRESENT: no acute distress, well-developed, well-nourished Respiratory exam: PRESENT: other - The patient is on bipap.. ABSENT: rales, rhonchi, wheezes Cardiovascular exam: PRESENT: RRR, other - No lateral PMI. No thrills.. ABSENT : gallop, rubs, systolic murmur Pulses: PRESENT: normal femoral pulses, normal dorsalis pedis pul GI/Abdominal exam: PRESENT: normal bowel sounds, soft. ABSENT: hernia, mass, organolmegaly, tenderness Extremities exam: ABSENT: clubbing, pedal edema, tenderness, +1 edema Neurological exam: PRESENT: alert, awake, oriented to person, oriented to place , oriented to time Skin exam: PRESENT: dry, intact, warm Results Laboratory Results: 02/14/18 05:19 02/14/18 07:25 02/13/18 02/14/18 02/14/18 22:55 05:19 05:19 WBC 14.7 H RBC 2.72 L Hgb 9.0 L D Hct 26.4 L MCV 97 MCH 33.1 MCHC 34.1 RDW 16.5 H Plt Count 216 Seg Neutrophils % Not Reportable Lymphocytes % Not Reportable Monocytes % Not Reportable Eosinophils % Not Reportable Basophils % Not Reportable Absolute Neutrophils Not Reportable Absolute Lymphocytes Not Reportable Absolute Monocytes Not Reportable Absolute Eosinophils Not Reportable Absolute Basophils Not Reportable Sodium Cancelled Potassium Cancelled Chloride Cancelled Carbon Dioxide Cancelled Anion Gap Cancelled BUN Cancelled Creatinine Cancelled Est GFR ( Amer) Cancelled Est GFR (Non-Af Amer) Cancelled Glucose Cancelled Lactic Acid 1.5 Calcium Cancelled 02/14/18 02/14/18 05:19 07:25 WBC RBC Hgb Hct MCV MCH MCHC RDW Plt Count Seg Neutrophils % Lymphocytes % Monocytes % Eosinophils % Basophils % Absolute Neutrophils Absolute Lymphocytes Absolute Monocytes Absolute Eosinophils Absolute Basophils Sodium 140.7 Potassium 3.6 Chloride 97 L Carbon Dioxide 34 H Anion Gap 10 BUN 26 H Creatinine 1.53 H Est GFR ( Amer) 40 L Est GFR (Non-Af Amer) 33 L Glucose 49 L Lactic Acid 1.4 Calcium 8.3 L Impressions: Chest X-Ray 02/13/18 18:59 IMPRESSION: Chronic lung changes. No acute cardiopulmonary disease suggested. Assessment & Plan - Diagnosis (1) COPD with exacerbation Is this a current diagnosis for this admission?: Yes Plan: Nebulizer treatments and steroids. Currently on Bipap. Plan to wean off today. (2) Diabetes mellitus type 2 in obese Is this a current diagnosis for this admission?: Yes Plan: FSBS followed with SSI. Good control currently. (3) HCAP (healthcare-associated pneumonia) Is this a current diagnosis for this admission?: Yes Plan: The patient is receiving cefepime and levaquin. (4) Lactic acidosis Is this a current diagnosis for this admission?: Yes Plan: Resolved. (5) Pneumonia Qualifiers: Pneumonia type: due to unspecified organism Laterality: bilateral Lung location: lower lobe of lung Qualified Code(s): J18.1 - Lobar pneumonia, unspecified organism Is this a current diagnosis for this admission?: Yes Plan: Cefepime and levaquin. (6) Respiratory failure with hypoxia and hypercapnia Qualifiers: Chronicity: acute Qualified Code(s): J96.01 - Acute respiratory failure with hypoxia; J96.02 - Acute respiratory failure with hypercapnia; J96.02 - Acute respiratory failure with hypercapnia; J96.02 - Acute respiratory failure with hypercapnia Is this a current diagnosis for this admission?: Yes Plan: Will wean off of bipap. (7) MARY LOU (acute kidney injury) Is this a current diagnosis for this admission?: Yes Plan: Likely chronic kidney disease. IV fluids cautiously. Will monitor creatinine and electrolytes. - Time Time Spent with patient: 35 or more minutes Medications reviewed and adjusted accordingly: Yes
[2018-02-14] MEDS: LEVOFLOXACIN 500 MG/D5W RTU 500 MG/100 ML RTUPB IV SCH (22:45)
[2018-02-14] MEDS: INSULIN LISPRO 100 UNIT/ML 3 ML VIAL SUBCUT PRN (23:45)
[2018-02-15 00:47] LABS: APPEARANCE,URINE SLIGHTLY-CLOUDY; BILIRUBIN,URINE NEGATIVE (NEGATIVE); COLOR,URINE YELLOW; GLUCOSE, URINE 50 mg/dL (NEGATIVE); KETONES,URINE TRACE mg/dL (NEGATIVE); LEUKOCYTE ESTERASE,URINE SMALL (NEGATIVE); NITRITE,URINE NEGATIVE (NEGATIVE); PROTEIN,URINE NEGATIVE (NEGATIVE); URINE SPECIFIC GRAVITY 1.016; UROBILINOGEN,URINE NEGATIVE mg/dL (<2.0)
[2018-02-15] MEDS: METHYLPREDNISOLONE INJ 40 MG/1 ML SDV IV SCH ×2 (06:12→13:20)
[2018-02-15 06:38] LABS: HEMATOCRIT 24.6 % (36.0-47.0); HEMOGLOBIN 8.4 g/dL (12.0-15.5); MEAN CORPUSCULAR HGB CONC 34.3 g/dL (32.0-36.0); MEAN CORPUSCULAR VOLUME 96 fl (80-97); PLATELET COUNT 181 10^3/uL (150-450); RED BLOOD COUNT 2.56 10^6/uL (3.72-5.28); RED CELL DISTRIBUTION WIDTH 15.3 % (11.5-14.0); WHITE BLOOD COUNT 8.1 10^3/uL (4.0-10.5)
[2018-02-15 06:55] LABS: ALANINE AMINOTRANSFERASE 25 U/L (9-52); ALBUMIN 2.8 g/dL (3.5-5.0); ALKALINE PHOSPHATASE 71 U/L (38-126); ANION GAP 12 (5-19); ASPARTATE AMINO TRANSFERASE 15 U/L (14-36); BILIRUBIN,DIRECT 0.3 mg/dL (0.0-0.4); BILIRUBIN,TOTAL 0.3 mg/dL (0.2-1.3); BLOOD UREA NITROGEN 28 mg/dL (7-20); CALCIUM 8.5 mg/dL (8.4-10.2); CARBON DIOXIDE 30 mmol/L (22-30); CHLORIDE 98 mmol/L (98-107); GLUCOSE 136 mg/dL (75-110); SODIUM 139.5 mmol/L (137-145); TOTAL PROTEIN 5.4 g/dL (6.3-8.2)
[2018-02-15 07:26] LABS: ABSOLUTE LYMPHOCYTES# (MANUAL) 0.4 10^3/uL (0.5-4.7); ABSOLUTE MONOCYTES # (MANUAL) 0.2 10^3/uL (0.1-1.4); ABSOLUTE NEUTROPHILS# (MANUAL) 7.5 10^3/uL (1.7-8.2); BASOPHILS % (MANUAL) 0 % (0-2); EOSINOPHILS % (MANUAL) 0 % (0-6); LYMPHOCYTES % (MANUAL) 5 % (13-45); MONOCYTES % (MANUAL) 2 % (3-13); SEGMENTED NEUTROPHILS % (MAN) 93 % (42-78); TOTAL CELLS COUNTED 100
[2018-02-15 07:27] LABS: PLATELET COMMENT ADEQUATE; POLYCHROMASIA SLIGHT; TOXIC GRANULATION SLIGHT
[2018-02-15] MEDS: IPRATROPIUM/ALBUTEROL 0.5-2.5 MG/3 ML AMPUL NEB PRN (08:09)
[2018-02-15] MEDS: GUAIFENESIN 600 MG TABLET.SA PO SCH ×2 (09:46→22:21)
[2018-02-15] MEDS: ENOXAPARIN SODIUM INJ 40 MG/0.4 ML DISP.SYRIN SUBCUT SCH (09:47)
[2018-02-15] MEDS: CEFEPIME 2 GM/D5W RTU 2 GM/50 ML RTUPB IV SCH ×2 (09:47→22:21)
[2018-02-15] MEDS: INSULIN LISPRO 100 UNIT/ML 3 ML VIAL SUBCUT PRN (15:17)
--- NOTE | 2018-02-15 16:43 | PDOC PROGRESS REPORT ---
Subjective Progress Note for:: 02/15/18 Subjective:: The patient states that her breathing is much improved. She is saturating 100% on 2L O2, her baseline O2 requirements. Reason For Visit: HCAP Physical Exam Vital Signs: Temp Pulse Resp BP Pulse Ox 98.5 F 99 18 107/54 L 100 02/15/18 11:21 02/15/18 14:00 02/15/18 11:21 02/15/18 11:21 02/15/18 11:21 Pulse Oximeter Continuous Start: 02/13/18 22: 09 Freq: RTQ4 Status: Complete Document 02/15/18 08:09 TPO (Rec: 02/15/18 08:22 TPO [email or web address]) Pulse Oximetry Assessment Oxygen Saturation (92-100) 100 Oxygen Flow Rate (L/min) 2 Oxygen Delivery Method Nasal Cannula Fraction of Inspired Oxygen (FIO2) 28 Equipment Usage Equipment in Use Continuous SpO2 Machine # 8 Intake & Output 02/14/18 02/15/18 02/16/18 06:59 06:59 06:59 Intake Total 100 1244 Output Total 100 Balance 100 1144 Weight 74.6 kg 82.9 kg General appearance: PRESENT: no acute distress, well-developed, well-nourished Respiratory exam: PRESENT: other - No increased work of breathing. No wheezes, rales, or rhonchi. No tactile fremitus. Cardiovascular exam: PRESENT: RRR, other - No lateral PMI. No thrills.. ABSENT : gallop, rubs, systolic murmur Pulses: PRESENT: other - Diminished distal pulses. GI/Abdominal exam: PRESENT: normal bowel sounds, soft, tenderness. ABSENT: distended, guarding, hernia, mass, organolmegaly Extremities exam: ABSENT: clubbing, pedal edema, tenderness, +1 edema Neurological exam: PRESENT: alert, awake, oriented to person, oriented to place , oriented to time, oriented to situation, CN II-XII grossly intact. ABSENT: motor sensory deficit Psychiatric exam: PRESENT: appropriate affect, normal mood Skin exam: PRESENT: dry, intact, warm Results Laboratory Results: 02/15/18 05:41 02/15/18 05:41 02/15/18 02/15/18 02/15/18 00:30 05:41 05:41 WBC 8.1 RBC 2.56 L Hgb 8.4 L Hct 24.6 L MCV 96 MCH 33.0 MCHC 34.3 RDW 15.3 H Plt Count 181 Seg Neutrophils % Not Reportable Lymphocytes % Not Reportable Monocytes % Not Reportable Eosinophils % Not Reportable Basophils % Not Reportable Absolute Neutrophils Not Reportable Absolute Lymphocytes Not Reportable Absolute Monocytes Not Reportable Absolute Eosinophils Not Reportable Absolute Basophils Not Reportable Sodium 139.5 Potassium 4.0 Chloride 98 Carbon Dioxide 30 Anion Gap 12 BUN 28 H Creatinine 1.54 H Est GFR ( Amer) 40 L Est GFR (Non-Af Amer) 33 L Glucose 136 H Calcium 8.5 Magnesium 1.5 L Total Bilirubin 0.3 AST 15 ALT 25 Alkaline Phosphatase 71 Total Protein 5.4 L Albumin 2.8 L Urine Color YELLOW Urine Appearance SLIGHTLY-CLOUDY Urine pH 6.0 Ur Specific [place] 1.016 Urine Protein NEGATIVE Urine Glucose (UA) 50 H Urine Ketones TRACE H Urine Blood NEGATIVE Urine Nitrite NEGATIVE Ur Leukocyte Esterase SMALL H Urine WBC (Auto) 23 Urine RBC (Auto) 8 Impressions: Chest X-Ray 02/13/18 18:59 IMPRESSION: Chronic lung changes. No acute cardiopulmonary disease suggested. Assessment & Plan - Diagnosis (1) COPD with exacerbation Is this a current diagnosis for this admission?: Yes Plan: Nebulizer treatments and steroids. The patient has been weaned off of BIPAP. She is saturating 100% on her baseline O2 requirements of 2L. (2) Diabetes mellitus type 2 in obese Is this a current diagnosis for this admission?: Yes Plan: FSBS followed with SSI. Good control currently. (3) HCAP (healthcare-associated pneumonia) Is this a current diagnosis for this admission?: Yes Plan: The patient is receiving cefepime and levaquin. (4) Lactic acidosis Is this a current diagnosis for this admission?: Yes Plan: Resolved. (5) Pneumonia Qualifiers: Pneumonia type: due to unspecified organism Laterality: bilateral Lung location: lower lobe of lung Qualified Code(s): J18.1 - Lobar pneumonia, unspecified organism Is this a current diagnosis for this admission?: Yes (6) Respiratory failure with hypoxia and hypercapnia Qualifiers: Chronicity: acute Qualified Code(s): J96.01 - Acute respiratory failure with hypoxia; J96.02 - Acute respiratory failure with hypercapnia; J96.02 - Acute respiratory failure with hypercapnia; J96.02 - Acute respiratory failure with hypercapnia Is this a current diagnosis for this admission?: Yes Plan: Resolved. (7) MARY LOU (acute kidney injury) Is this a current diagnosis for this admission?: Yes Plan: Likely chronic kidney disease. IV fluids cautiously. Will monitor creatinine and electrolytes. - Time Time Spent with patient: 35 or more minutes Within: within 24 hours
[2018-02-15] MEDS: METHYLPREDNISOLONE INJ 125 MG/2 ML SDV IV SCH (22:21)
[2018-02-15] MEDS: LEVOFLOXACIN 500 MG/D5W RTU 500 MG/100 ML RTUPB IV SCH (22:21)
[2018-02-16] MEDS: METHYLPREDNISOLONE INJ 125 MG/2 ML SDV IV SCH ×3 (05:47→22:09)
[2018-02-16 06:13] LABS: HEMATOCRIT 25.7 % (36.0-47.0); HEMOGLOBIN 8.8 g/dL (12.0-15.5); MEAN CORPUSCULAR HEMOGLOBIN 32.9 pg (27.0-33.4); MEAN CORPUSCULAR HGB CONC 34.3 g/dL (32.0-36.0); MEAN CORPUSCULAR VOLUME 96 fl (80-97); PLATELET COUNT 211 10^3/uL (150-450); RED BLOOD COUNT 2.68 10^6/uL (3.72-5.28); RED CELL DISTRIBUTION WIDTH 15.6 % (11.5-14.0); WHITE BLOOD COUNT 9.8 10^3/uL (4.0-10.5)
[2018-02-16 06:28] LABS: ANION GAP 10 (5-19); BLOOD UREA NITROGEN 28 mg/dL (7-20); CALCIUM 8.8 mg/dL (8.4-10.2); CARBON DIOXIDE 31 mmol/L (22-30); CHLORIDE 99 mmol/L (98-107); GLUCOSE 149 mg/dL (75-110); POTASSIUM 3.8 mmol/L (3.6-5.0); SODIUM 140.1 mmol/L (137-145)
[2018-02-16 06:58] LABS: ABSOLUTE LYMPHOCYTES# (MANUAL) 0.4 10^3/uL (0.5-4.7); ABSOLUTE MONOCYTES # (MANUAL) 0.2 10^3/uL (0.1-1.4); ABSOLUTE NEUTROPHILS# (MANUAL) 9.2 10^3/uL (1.7-8.2); BAND NEUTROPHILS % (MANUAL) 2 % (3-5); BASOPHILS % (MANUAL) 0 % (0-2); EOSINOPHILS % (MANUAL) 0 % (0-6); LYMPHOCYTES % (MANUAL) 4 % (13-45); MONOCYTES % (MANUAL) 2 % (3-13); SEGMENTED NEUTROPHILS % (MAN) 92 % (42-78); TOTAL CELLS COUNTED 100
[2018-02-16 07:00] LABS: ANISOCYTOSIS 1+; OVALOCYTES SLIGHT; PLATELET COMMENT ADEQUATE; POIKILOCYTOSIS SLIGHT; TEAR DROP CELLS SLIGHT
[2018-02-16] MEDS: CEFEPIME 2 GM/D5W RTU 2 GM/50 ML RTUPB IV SCH (10:36)
[2018-02-16] MEDS: GUAIFENESIN 600 MG TABLET.SA PO SCH ×2 (10:36→22:09)
[2018-02-16] MEDS: ENOXAPARIN SODIUM INJ 40 MG/0.4 ML DISP.SYRIN SUBCUT SCH (10:36)
--- NOTE | 2018-02-16 18:37 | PDOC PROGRESS REPORT ---
Subjective Progress Note for:: 02/16/18 Subjective:: The patient is without new complaints. She has not ambulated. Reason For Visit: HCAP Physical Exam Vital Signs: Temp Pulse Resp BP Pulse Ox 98.5 F 107 H 18 128/74 H 100 02/16/18 12:01 02/16/18 14:00 02/16/18 12:01 02/16/18 12:01 02/16/18 12:01 Pulse Oximeter Continuous Start: 02/13/18 22: 09 Freq: RTQ4 Status: Complete Document 02/15/18 08:09 TPO (Rec: 02/15/18 08:22 TPO [email or web address]) Pulse Oximetry Assessment Oxygen Saturation (92-100) 100 Oxygen Flow Rate (L/min) 2 Oxygen Delivery Method Nasal Cannula Fraction of Inspired Oxygen (FIO2) 28 Equipment Usage Equipment in Use Continuous SpO2 Machine # 8 Intake & Output 02/15/18 02/16/18 02/17/18 06:59 06:59 06:59 Intake Total 1244 907 360 Output Total 100 Balance 1144 907 360 Weight 82.9 kg General appearance: PRESENT: no acute distress, morbidly obese Respiratory exam: PRESENT: other - Positive for mildly increased work of breathing. No rales. Positive for some wheezes,. ABSENT: rhonchi Cardiovascular exam: PRESENT: RRR, other - No latealr PMI. No thrills.. ABSENT : gallop, rubs, systolic murmur Pulses: PRESENT: other - Diminished distal pulses. GI/Abdominal exam: PRESENT: normal bowel sounds, soft. ABSENT: distended, hernia, mass, organolmegaly Extremities exam: ABSENT: clubbing, tenderness, +1 edema Neurological exam: PRESENT: alert, awake, oriented to person, oriented to place , oriented to time, oriented to situation, CN II-XII grossly intact. ABSENT: motor sensory deficit Psychiatric exam: PRESENT: appropriate affect, normal mood Skin exam: PRESENT: dry, intact, warm Results Laboratory Results: 02/16/18 05:20 02/16/18 05:20 02/16/18 02/16/18 05:20 05:20 WBC 9.8 RBC 2.68 L Hgb 8.8 L Hct 25.7 L MCV 96 MCH 32.9 MCHC 34.3 RDW 15.6 H Plt Count 211 Seg Neutrophils % Not Reportable Lymphocytes % Not Reportable Monocytes % Not Reportable Eosinophils % Not Reportable Basophils % Not Reportable Absolute Neutrophils Not Reportable Absolute Lymphocytes Not Reportable Absolute Monocytes Not Reportable Absolute Eosinophils Not Reportable Absolute Basophils Not Reportable Sodium 140.1 Potassium 3.8 Chloride 99 Carbon Dioxide 31 H Anion Gap 10 BUN 28 H Creatinine 1.04 Est GFR ( Amer) > 60 Est GFR (Non-Af Amer) 52 L Glucose 149 H Calcium 8.8 02/13/18 22:35 Sputum Gram Stain - Final Impressions: Chest X-Ray 02/13/18 18:59 IMPRESSION: Chronic lung changes. No acute cardiopulmonary disease suggested. Assessment & Plan - Diagnosis (1) COPD with exacerbation Is this a current diagnosis for this admission?: Yes Plan: Nebulizer treatments and steroids. The patient has been weaned off of BIPAP. She is saturating 100% on her baseline O2 requirements of 2L, but states that she feels more short of breath today. (2) Diabetes mellitus type 2 in obese Is this a current diagnosis for this admission?: Yes Plan: FSBS followed with SSI. Good control currently. (3) HCAP (healthcare-associated pneumonia) Is this a current diagnosis for this admission?: Yes Plan: The patient is receiving cefepime and levaquin. Will de-escalate antibiotics. (4) Lactic acidosis Is this a current diagnosis for this admission?: Yes (5) Pneumonia Qualifiers: Pneumonia type: due to unspecified organism Laterality: bilateral Lung location: lower lobe of lung Qualified Code(s): J18.1 - Lobar pneumonia, unspecified organism Is this a current diagnosis for this admission?: Yes Plan: Cefepime and levaquin. Will de-escalate to keflex and levaquin. (6) Respiratory failure with hypoxia and hypercapnia Qualifiers: Chronicity: acute Qualified Code(s): J96.01 - Acute respiratory failure with hypoxia; J96.02 - Acute respiratory failure with hypercapnia; J96.02 - Acute respiratory failure with hypercapnia; J96.02 - Acute respiratory failure with hypercapnia Is this a current diagnosis for this admission?: Yes (7) MARY LOU (acute kidney injury) Is this a current diagnosis for this admission?: Yes Plan: Likely chronic kidney disease. IV fluids cautiously. Will monitor creatinine and electrolytes. - Time Time Spent with patient: 25-34 minutes Medications reviewed and adjusted accordingly: Yes
[2018-02-17] MEDS: METHYLPREDNISOLONE INJ 125 MG/2 ML SDV IV SCH ×3 (05:45→22:07)
[2018-02-17] MEDS: ENOXAPARIN SODIUM INJ 40 MG/0.4 ML DISP.SYRIN SUBCUT SCH (10:08)
[2018-02-17] MEDS: LEVOFLOXACIN 750 MG TABLET PO SCH (10:08)
[2018-02-17] MEDS: GUAIFENESIN 600 MG TABLET.SA PO SCH ×2 (10:09→22:07)
[2018-02-17] MEDS: IPRATROPIUM/ALBUTEROL 0.5-2.5 MG/3 ML AMPUL NEB PRN (11:33)
--- NOTE | 2018-02-17 19:18 | PDOC PROGRESS REPORT ---
Subjective Progress Note for:: 02/17/18 Subjective:: Seen resting in bed. She is awake and alert eating lunch. She denies any chest pain, shortness of breath or dyspnea. She states she does have a headache which is pretty much always. She denies any nausea, vomiting or abdominal pain. She is confused to time, place and situation. Denies any arthralgias or myalgias. Remaining review of systems is negative. Reason For Visit: HCAP Physical Exam Vital Signs: Temp Pulse Resp BP Pulse Ox 98.1 F 114 H 20 118/64 100 02/17/18 16:05 02/17/18 16:07 02/17/18 16:07 02/17/18 16:05 02/17/18 16:07 Pulse Oximeter Continuous Start: 02/13/18 22: 09 Freq: RTQ4 Status: Complete Document 02/15/18 08:09 TPO (Rec: 02/15/18 08:22 TPO [email or web address]) Pulse Oximetry Assessment Oxygen Saturation (92-100) 100 Oxygen Flow Rate (L/min) 2 Oxygen Delivery Method Nasal Cannula Fraction of Inspired Oxygen (FIO2) 28 Equipment Usage Equipment in Use Continuous SpO2 Machine # 8 Intake & Output 02/16/18 02/17/18 02/18/18 06:59 06:59 06:59 Intake Total 907 465 473 Balance 907 465 473 Weight 83.6 kg General appearance: PRESENT: no acute distress, obese, well-developed, well- nourished Head exam: PRESENT: atraumatic, normocephalic Eye exam: PRESENT: conjunctiva pink, EOMI, PERRLA. ABSENT: scleral icterus Ear exam: PRESENT: normal external ear exam Mouth exam: PRESENT: neck supple, tongue midline Teeth exam: PRESENT: poor dentation Neck exam: ABSENT: carotid bruit, JVD, lymphadenopathy, thyromegaly Respiratory exam: PRESENT: rales - Right base. ABSENT: rhonchi, wheezes Cardiovascular exam: PRESENT: RRR. ABSENT: diastolic murmur, rubs, systolic murmur Pulses: PRESENT: normal dorsalis pedis pul Vascular exam: PRESENT: normal capillary refill GI/Abdominal exam: PRESENT: normal bowel sounds, soft. ABSENT: distended, guarding, mass, organolmegaly, rebound, tenderness Rectal exam: PRESENT: deferred Extremities exam: PRESENT: full ROM. 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 ABSENT: homicidal ideation, suicidal ideation Skin exam: PRESENT: dry, intact, warm. ABSENT: cyanosis, rash Results Laboratory Results: 02/16/18 05:20 02/16/18 05:20 02/16/18 18:55 Stool Occult Blood NEGATIVE 02/13/18 22:35 Sputum Gram Stain - Final Impressions: Chest X-Ray 02/13/18 18:59 IMPRESSION: Chronic lung changes. No acute cardiopulmonary disease suggested. Assessment & Plan - Diagnosis (1) HCAP (healthcare-associated pneumonia) Is this a current diagnosis for this admission?: Yes Plan: Continue Levaquin and cefepime. Sputum cultures positive for Pseudomonas (2) Respiratory failure with hypoxia and hypercapnia Qualifiers: Chronicity: acute Qualified Code(s): J96.01 - Acute respiratory failure with hypoxia; J96.02 - Acute respiratory failure with hypercapnia; J96.02 - Acute respiratory failure with hypercapnia; J96.02 - Acute respiratory failure with hypercapnia Is this a current diagnosis for this admission?: Yes Plan: Improving. (3) MARY LOU (acute kidney injury) Is this a current diagnosis for this admission?: Yes Plan: Resolved. 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
[2018-02-17] MEDS: INSULIN LISPRO 100 UNIT/ML 3 ML VIAL SUBCUT PRN (22:25)
[2018-02-18] MEDS: METHYLPREDNISOLONE INJ 125 MG/2 ML SDV IV SCH ×3 (05:58→22:15)
[2018-02-18] MEDS: INSULIN LISPRO 100 UNIT/ML 3 ML VIAL SUBCUT PRN ×3 (08:03→17:00)
[2018-02-18] MEDS ORDERED: LACTULOSE SYRUP 20 GM/30 ML UDCUP PO PRN (08:10)
[2018-02-18] MEDS: GUAIFENESIN 600 MG TABLET.SA PO SCH ×2 (09:55→22:15)
[2018-02-18] MEDS: LEVOFLOXACIN 750 MG TABLET PO SCH (09:55)
[2018-02-18] MEDS: ENOXAPARIN SODIUM INJ 40 MG/0.4 ML DISP.SYRIN SUBCUT SCH (09:55)
[2018-02-18] MEDS: IPRATROPIUM/ALBUTEROL 0.5-2.5 MG/3 ML AMPUL NEB PRN (09:56)
[2018-02-18] MEDS ORDERED: (PENDING PHARMACY ID) (Metformin Hcl [Glucophage Xr 500 Mg Tablet] 500 MG) PO SCH (10:00)
[2018-02-18] MEDS ORDERED: CARVEDILOL 6.25 MG TABLET PO SCH (10:00)
[2018-02-18] MEDS: LISINOPRIL 5 MG TABLET PO SCH (10:50)
[2018-02-18] MEDS: MAGNESIUM OXIDE 400 MG TABLET PO SCH (10:50)
[2018-02-18] MEDS: LANSOPRAZOLE 30 MG TAB.RAP.DR PO SCH (10:51)
[2018-02-18] MEDS: FUROSEMIDE 40 MG TABLET PO SCH (10:51)
[2018-02-18] MEDS: GLIMEPIRIDE 1 MG TABLET PO SCH (10:52)
[2018-02-18] MEDS: TIOTROPIUM BROMIDE DPI 5 CAP/KIT (18 MCG/CAP) IH SCH (10:52)
[2018-02-18] MEDS: METFORMIN HCL 500 MG TABLET PO SCH ×4 (11:13→22:15)
[2018-02-18] MEDS ORDERED: METOPROLOL TARTRATE PF/INJ 5 MG/5 ML SDV IV ONE ×2 (12:26→12:36)
--- NOTE | 2018-02-18 17:46 | PDOC PROGRESS REPORT ---
Subjective Progress Note for:: 02/18/18 Subjective:: Seen resting in bed. She is awake and alert eating lunch. She denies any chest pain, shortness of breath or dyspnea. She states she does have a headache which is pretty much always. She denies any nausea, vomiting or abdominal pain. She is confused to time, place and situation. Denies any arthralgias or myalgias. Remaining review of systems is negative. Reason For Visit: HCAP Physical Exam Vital Signs: Temp Pulse Resp BP Pulse Ox 98.3 F 90 18 120/61 97 02/18/18 15:27 02/18/18 15:27 02/18/18 15:27 02/18/18 15:27 02/18/18 15:27 Pulse Oximeter Continuous Start: 02/13/18 22: 09 Freq: RTQ4 Status: Complete Document 02/15/18 08:09 TPO (Rec: 02/15/18 08:22 TPO [email or web address]) Pulse Oximetry Assessment Oxygen Saturation (92-100) 100 Oxygen Flow Rate (L/min) 2 Oxygen Delivery Method Nasal Cannula Fraction of Inspired Oxygen (FIO2) 28 Equipment Usage Equipment in Use Continuous SpO2 Machine # 8 Intake & Output 02/17/18 02/18/18 02/19/18 06:59 06:59 06:59 Intake Total 465 1028 887 Balance 465 1028 887 Weight 83.6 kg 85.4 kg General appearance: PRESENT: no acute distress, obese, well-developed, well- nourished Head exam: PRESENT: atraumatic, normocephalic Eye exam: PRESENT: conjunctiva pink, EOMI, PERRLA. ABSENT: scleral icterus Ear exam: PRESENT: normal external ear exam Mouth exam: PRESENT: moist, tongue midline Teeth exam: PRESENT: poor dentation Neck exam: ABSENT: carotid bruit, JVD, lymphadenopathy, thyromegaly Respiratory exam: PRESENT: rhonchi, symmetrical, unlabored, wheezes - Laterally. Cardiovascular exam: PRESENT: irregular rhythm, +S1, +S2 Pulses: PRESENT: normal dorsalis pedis pul Vascular exam: PRESENT: normal capillary refill GI/Abdominal exam: PRESENT: normal bowel sounds, soft. ABSENT: distended, guarding, mass, organolmegaly, rebound, tenderness Rectal exam: PRESENT: deferred Extremities exam: PRESENT: full ROM. ABSENT: calf tenderness, clubbing, pedal edema Musculoskeletal exam: PRESENT: full ROM, tenderness Neurological exam: PRESENT: alert, altered, awake, oriented to person, oriented to place, oriented to situation, CN II-XII grossly intact Psychiatric exam: PRESENT: appropriate affect, normal mood. ABSENT: homicidal ideation, suicidal ideation Skin exam: PRESENT: dry, intact, warm. ABSENT: cyanosis, rash Results Laboratory Results: 02/16/18 05:20 02/16/18 05:20 02/13/18 22:35 Sputum Gram Stain - Final 02/15/18 00:30 Clean Catch Midstream Urine Culture - Final Vre (E.faecalis) Impressions: Chest X-Ray 02/13/18 18:59 IMPRESSION: Chronic lung changes. No acute cardiopulmonary disease suggested. Assessment & Plan - Diagnosis (1) HCAP (healthcare-associated pneumonia) Is this a current diagnosis for this admission?: Yes Plan: Continue Levaquin and cefepime. Sputum cultures positive for Pseudomonas (2) Respiratory failure with hypoxia and hypercapnia Qualifiers: Chronicity: acute Qualified Code(s): J96.01 - Acute respiratory failure with hypoxia; J96.02 - Acute respiratory failure with hypercapnia; J96.02 - Acute respiratory failure with hypercapnia; J96.02 - Acute respiratory failure with hypercapnia Is this a current diagnosis for this admission?: Yes Plan: Improving. (3) MARY LOU (acute kidney injury) Is this a current diagnosis for this admission?: Yes Plan: Resolved. 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 There is no signs of any residual disease in her last CT scan (8) History of chemotherapy Is this a current diagnosis for this admission?: Yes (9) Hypothyroid Qualifiers: Hypothyroidism type: unspecified Qualified Code(s): E03.9 - Hypothyroidism , unspecified Is this a current diagnosis for this admission?: Yes Plan: Continue synthroid - Time Time Spent with patient: 25-34 minutes Total Critical Time (Minutes): 30 Medications reviewed and adjusted accordingly: Yes Anticipated discharge: Home, Home with Homehealth - Inpatient Certification Based on my medical assessment, after consideration of the patient's comorbidities, presenting symptoms, or acuity I expect that the services needed warrant INPATIENT care.: Yes I certify that my determination is in accordance with my understanding of Medicare's requirements for reasonable and necessary INPATIENT services [42 CFR 412.3e].: Yes Medical Necessity: Significant Comorbidiites Make Outpatient Treatment Too Risky , Need for IV Antibiotics
[2018-02-18] MEDS: CARVEDILOL 6.25 MG TABLET PO SCH (22:15)
[2018-02-19] MEDS: LEVOTHYROXINE SODIUM 0.088 MG TABLET PO SCH (05:27)
[2018-02-19] MEDS: METHYLPREDNISOLONE INJ 125 MG/2 ML SDV IV SCH (09:09)
[2018-02-19] MEDS: METFORMIN HCL 500 MG TABLET PO SCH ×4 (09:10→22:20)
[2018-02-19] MEDS: ENOXAPARIN SODIUM INJ 40 MG/0.4 ML DISP.SYRIN SUBCUT SCH (09:10)
[2018-02-19] MEDS: TIOTROPIUM BROMIDE DPI 5 CAP/KIT (18 MCG/CAP) IH SCH (09:11)
[2018-02-19] MEDS: GUAIFENESIN 600 MG TABLET.SA PO SCH ×2 (09:12→22:18)
[2018-02-19] MEDS: CARVEDILOL 6.25 MG TABLET PO SCH ×2 (09:12→22:17)
[2018-02-19] MEDS: MAGNESIUM OXIDE 400 MG TABLET PO SCH (09:12)
[2018-02-19] MEDS: FUROSEMIDE 40 MG TABLET PO SCH (09:12)
[2018-02-19] MEDS: LEVOFLOXACIN 750 MG TABLET PO SCH (09:12)
[2018-02-19] MEDS: LANSOPRAZOLE 30 MG TAB.RAP.DR PO SCH (09:15)
[2018-02-19] MEDS: GLIMEPIRIDE 1 MG TABLET PO SCH (09:16)
[2018-02-19] MEDS: LISINOPRIL 5 MG TABLET PO SCH (09:16)
[2018-02-19] MEDS: IPRATROPIUM/ALBUTEROL 0.5-2.5 MG/3 ML AMPUL NEB PRN ×2 (11:49→19:46)
[2018-02-20] MEDS: PROMETHAZINE HCL INJ 25 MG/1 ML VIAL IV PRN (03:20)
[2018-02-20] MEDS: LEVOTHYROXINE SODIUM 0.088 MG TABLET PO SCH (06:39)
[2018-02-20 06:57] LABS: ANION GAP 8 (5-19); BLOOD UREA NITROGEN 41 mg/dL (7-20); CALCIUM 9.5 mg/dL (8.4-10.2); CARBON DIOXIDE 34 mmol/L (22-30); CHLORIDE 103 mmol/L (98-107); GLUCOSE 61 mg/dL (75-110); POTASSIUM 3.3 mmol/L (3.6-5.0); SODIUM 144.7 mmol/L (137-145)
[2018-02-20 07:23] LABS: HEMATOCRIT 33.1 % (36.0-47.0); HEMOGLOBIN 10.9 g/dL (12.0-15.5); MEAN CORPUSCULAR HEMOGLOBIN 31.6 pg (27.0-33.4); MEAN CORPUSCULAR HGB CONC 32.8 g/dL (32.0-36.0); MEAN CORPUSCULAR VOLUME 96 fl (80-97); PLATELET COUNT 247 10^3/uL (150-450); RED BLOOD COUNT 3.44 10^6/uL (3.72-5.28); RED CELL DISTRIBUTION WIDTH 15.9 % (11.5-14.0); WHITE BLOOD COUNT 8.5 10^3/uL (4.0-10.5)
[2018-02-20 07:50] LABS: ABSOLUTE LYMPHOCYTES# (MANUAL) 0.8 10^3/uL (0.5-4.7); ABSOLUTE MONOCYTES # (MANUAL) 0.6 10^3/uL (0.1-1.4); ABSOLUTE NEUTROPHILS# (MANUAL) 7.1 10^3/uL (1.7-8.2); BAND NEUTROPHILS % (MANUAL) 1 % (3-5); BASOPHILS % (MANUAL) 0 % (0-2); EOSINOPHILS % (MANUAL) 0 % (0-6); LYMPHOCYTES % (MANUAL) 6 % (13-45); MONOCYTES % (MANUAL) 7 % (3-13); NUCLEATED RED BLOOD CELLS 2 /100 WBC (0); SEGMENTED NEUTROPHILS % (MAN) 83 % (42-78); TOTAL CELLS COUNTED 100
[2018-02-20 07:51] LABS: HOWELL-JOLLY BODIES PRESENT; OVALOCYTES SLIGHT; PLATELET COMMENT ADEQUATE; POIKILOCYTOSIS SLIGHT; POLYCHROMASIA SLIGHT
[2018-02-20] MEDS: ENOXAPARIN SODIUM INJ 40 MG/0.4 ML DISP.SYRIN SUBCUT SCH (10:36)
[2018-02-20] MEDS: METFORMIN HCL 500 MG TABLET PO SCH ×4 (10:36→21:55)
[2018-02-20] MEDS: LANSOPRAZOLE 30 MG TAB.RAP.DR PO SCH (10:38)
[2018-02-20] MEDS: GUAIFENESIN 600 MG TABLET.SA PO SCH ×2 (10:38→21:54)
[2018-02-20] MEDS: LEVOFLOXACIN 750 MG TABLET PO SCH (10:38)
[2018-02-20] MEDS: PREDNISONE 20 MG TABLET PO SCH (10:38)
[2018-02-20] MEDS: MAGNESIUM OXIDE 400 MG TABLET PO SCH (10:38)
[2018-02-20] MEDS: FUROSEMIDE 40 MG TABLET PO SCH (10:39)
[2018-02-20] MEDS: TIOTROPIUM BROMIDE DPI 5 CAP/KIT (18 MCG/CAP) IH SCH (10:40)
[2018-02-20] MEDS: GLIMEPIRIDE 1 MG TABLET PO SCH (10:41)
[2018-02-20] MEDS: CARVEDILOL 6.25 MG TABLET PO SCH ×2 (11:03→21:55)
[2018-02-20] MEDS: LISINOPRIL 5 MG TABLET PO SCH (11:03)
--- NOTE | 2018-02-20 11:28 | PDOC PROGRESS REPORT ---
Subjective Progress Note for:: 02/20/18 Subjective:: Patient is sleeping but easily arousable Reason For Visit: HCAP Physical Exam Vital Signs: Temp Pulse Resp BP Pulse Ox 98.2 F 69 18 106/56 L 98 02/20/18 10:56 02/20/18 10:56 02/20/18 10:56 02/20/18 10:56 02/20/18 10:56 Pulse Oximeter Continuous Start: 02/13/18 22: 09 Freq: RTQ4 Status: Complete Document 02/15/18 08:09 TPO (Rec: 02/15/18 08:22 TPO [email or web address]) Pulse Oximetry Assessment Oxygen Saturation (92-100) 100 Oxygen Flow Rate (L/min) 2 Oxygen Delivery Method Nasal Cannula Fraction of Inspired Oxygen (FIO2) 28 Equipment Usage Equipment in Use Continuous SpO2 Machine # 8 Intake & Output 02/19/18 02/20/18 02/21/18 06:59 06:59 06:59 Intake Total 1010 1194 Balance 1010 1194 Weight 84.4 kg 84.3 kg General appearance: PRESENT: no acute distress, well-developed, well-nourished Head exam: PRESENT: atraumatic, normocephalic Eye exam: PRESENT: conjunctiva pink, EOMI, PERRLA. ABSENT: scleral icterus Ear exam: PRESENT: normal external ear exam Mouth exam: PRESENT: moist, tongue midline Neck exam: ABSENT: carotid bruit, JVD, lymphadenopathy, thyromegaly Respiratory exam: PRESENT: clear to auscultation jeff. ABSENT: rales, rhonchi, wheezes Cardiovascular exam: PRESENT: RRR. ABSENT: diastolic murmur, rubs, systolic murmur Pulses: PRESENT: normal dorsalis pedis pul Vascular exam: PRESENT: normal capillary refill GI/Abdominal exam: PRESENT: normal bowel sounds, soft. ABSENT: distended, guarding, mass, organolmegaly, rebound, tenderness Rectal exam: PRESENT: deferred Extremities exam: PRESENT: full ROM. ABSENT: calf tenderness, clubbing, pedal edema Neurological exam: PRESENT: alert. ABSENT: motor sensory deficit Psychiatric exam: PRESENT: appropriate affect. ABSENT: homicidal ideation, suicidal ideation Skin exam: PRESENT: dry, intact, warm. ABSENT: cyanosis, rash Results Laboratory Results: 02/20/18 05:57 02/20/18 05:57 02/20/18 02/20/18 05:57 05:57 WBC 8.5 RBC 3.44 L Hgb 10.9 L Hct 33.1 L MCV 96 MCH 31.6 MCHC 32.8 RDW 15.9 H Plt Count 247 Seg Neutrophils % Not Reportable Lymphocytes % Not Reportable Monocytes % Not Reportable Eosinophils % Not Reportable Basophils % Not Reportable Absolute Neutrophils Not Reportable Absolute Lymphocytes Not Reportable Absolute Monocytes Not Reportable Absolute Eosinophils Not Reportable Absolute Basophils Not Reportable Sodium 144.7 Potassium 3.3 L Chloride 103 Carbon Dioxide 34 H Anion Gap 8 BUN 41 H Creatinine 1.07 Est GFR ( Amer) > 60 Est GFR (Non-Af Amer) 50 L Glucose 61 L Calcium 9.5 Magnesium 1.6 02/13/18 22:35 Sputum Gram Stain - Final 02/13/18 22:35 Sputum Sputum Culture - Final Pseudomonas Aeruginosa Enterobacter Cloacae Stenotrophomonas Maltophilia Normal Jayshree Impressions: Chest X-Ray 02/13/18 18:59 IMPRESSION: Chronic lung changes. No acute cardiopulmonary disease suggested. Assessment & Plan - Time Time Spent with patient: 15-24 minutes Medications reviewed and adjusted accordingly: Yes Within: within 72 hours - Inpatient Certification Based on my medical assessment, after consideration of the patient's comorbidities, presenting symptoms, or acuity I expect that the services needed warrant INPATIENT care.: Yes Medical Necessity: Risk of Complication if Not Cared For in Hospital, Risk of Diagnosis Which Will Require Inpatient Eval/Care/Monitoring - Plan Summary Plan Summary: Healthcare associated pneumonia currently on Levaquin and cefepime with sputum cultures positive for Pseudomonas. Will de-escalate antibiotics as appropriate 2. Acute hypoxemic respiratory failure and hypercapnic will continue support 3. Acute kidney injury resolved 4. Dementia underlying 5. Right lower lobe pneumonia continue management as above 6. 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 Urinary tract infection yielding vancomycin-resistant enterococci. Patient is allergic to penicillin so at this point given that she just had some renal failure the best bed will be to put on Zyvox. 8. Hypothyroidism we will continue Synthroid
[2018-02-20] MEDS ORDERED: POTASSIUM CHLORIDE 10 MEQ CAPSULE.ER PO ONE ×2 (11:29→14:59)
[2018-02-20] MEDS: LINEZOLID 600 MG TABLET PO SCH ×2 (15:00→21:54)
[2018-02-20] MEDS: IPRATROPIUM/ALBUTEROL 0.5-2.5 MG/3 ML AMPUL NEB PRN (20:16)
[2018-02-21] MEDS: LEVOTHYROXINE SODIUM 0.088 MG TABLET PO SCH (05:27)
[2018-02-21] MEDS: CARVEDILOL 6.25 MG TABLET PO SCH ×2 (11:35→22:40)
[2018-02-21] MEDS: LISINOPRIL 5 MG TABLET PO SCH (11:35)
[2018-02-21] MEDS: ENOXAPARIN SODIUM INJ 40 MG/0.4 ML DISP.SYRIN SUBCUT SCH (12:16)
[2018-02-21] MEDS: MAGNESIUM OXIDE 400 MG TABLET PO SCH (12:16)
[2018-02-21] MEDS: FUROSEMIDE 40 MG TABLET PO SCH (12:16)
[2018-02-21] MEDS: GUAIFENESIN 600 MG TABLET.SA PO SCH ×2 (12:20→22:40)
[2018-02-21] MEDS: LEVOFLOXACIN 750 MG TABLET PO SCH (12:20)
[2018-02-21] MEDS: METFORMIN HCL 500 MG TABLET PO SCH ×3 (12:20→19:22)
[2018-02-21] MEDS: PREDNISONE 20 MG TABLET PO SCH (12:20)
[2018-02-21] MEDS: LANSOPRAZOLE 30 MG TAB.RAP.DR PO SCH (12:21)
[2018-02-21] MEDS: LINEZOLID 600 MG TABLET PO SCH ×2 (12:26→22:40)
[2018-02-21] MEDS: TIOTROPIUM BROMIDE DPI 5 CAP/KIT (18 MCG/CAP) IH SCH (12:31)
[2018-02-21] MEDS: GLIMEPIRIDE 1 MG TABLET PO SCH (12:31)
[2018-02-21] MEDS ORDERED: PREDNISONE 20 MG TABLET PO SCH (18:14)
--- NOTE | 2018-02-21 18:17 | PDOC PROGRESS REPORT ---
Subjective Subjective:: No new issues overnight Reason For Visit: HCAP Physical Exam Vital Signs: Temp Pulse Resp BP Pulse Ox 97.5 F 98 18 101/62 99 02/21/18 07:48 02/21/18 14:00 02/21/18 13:59 02/21/18 07:48 02/21/18 13:59 Pulse Oximeter Continuous Start: 02/13/18 22: 09 Freq: RTQ4 Status: Complete Document 02/15/18 08:09 TPO (Rec: 02/15/18 08:22 TPO [email or web address]) Pulse Oximetry Assessment Oxygen Saturation (92-100) 100 Oxygen Flow Rate (L/min) 2 Oxygen Delivery Method Nasal Cannula Fraction of Inspired Oxygen (FIO2) 28 Equipment Usage Equipment in Use Continuous SpO2 Machine # 8 Intake & Output 02/20/18 02/21/18 02/22/18 06:59 06:59 06:59 Intake Total 1194 1110 Balance 1194 1110 Weight 84.3 kg General appearance: PRESENT: no acute distress, well-nourished Head exam: PRESENT: atraumatic Respiratory exam: PRESENT: crackles, rhonchi, unlabored. ABSENT: accessory muscle use, wheezes Cardiovascular exam: PRESENT: RRR, +S1, +S2 GI/Abdominal exam: PRESENT: normal bowel sounds, soft. ABSENT: distended, guarding, mass, organolmegaly, rebound, tenderness Rectal exam: PRESENT: deferred Neurological exam: PRESENT: alert, awake. ABSENT: oriented to time, oriented to situation Psychiatric exam: PRESENT: appropriate affect Results Laboratory Results: 02/20/18 05:57 02/20/18 05:57 Impressions: Chest X-Ray 02/13/18 18:59 IMPRESSION: Chronic lung changes. No acute cardiopulmonary disease suggested. Assessment & Plan - Time Time Spent with patient: 15-24 minutes Medications reviewed and adjusted accordingly: Yes Anticipated discharge: SNF Within: within 72 hours - Inpatient Certification Based on my medical assessment, after consideration of the patient's comorbidities, presenting symptoms, or acuity I expect that the services needed warrant INPATIENT care.: Yes Medical Necessity: Need Close Monitoring Due to Risk of Patient Decompensation, Risk of Complication if Not Cared For in Hospital Post Hospital Care: Other - Plan Summary Plan Summary: 1.Healthcare associated pneumonia currently on Levaquin with sputum cultures positive for Pseudomonas. 2. Acute hypoxemic and hypercapnic respiratory failurewill continue support 3. Acute kidney injury resolved 4. Dementia underlying 5. Right lower lobe pneumonia continue Levaquin 6. 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 Urinary tract infection yielding vancomycin-resistant enterococci. Continue Zyvox Day 2 8. Hypothyroidism we will continue Synthroid 9. Patient can possibly be discharged in another day or 2
[2018-02-22] MEDS: METFORMIN HCL 500 MG TABLET PO SCH ×3 (02:13→20:11)
[2018-02-22] MEDS: LEVOTHYROXINE SODIUM 0.088 MG TABLET PO SCH (05:30)
[2018-02-22 07:11] LABS: HEMATOCRIT 31.5 % (36.0-47.0); HEMOGLOBIN 10.7 g/dL (12.0-15.5); MEAN CORPUSCULAR HGB CONC 33.9 g/dL (32.0-36.0); MEAN CORPUSCULAR VOLUME 97 fl (80-97); PLATELET COUNT 219 10^3/uL (150-450); RED BLOOD COUNT 3.24 10^6/uL (3.72-5.28); RED CELL DISTRIBUTION WIDTH 15.8 % (11.5-14.0); WHITE BLOOD COUNT 7.7 10^3/uL (4.0-10.5)
[2018-02-22 07:24] LABS: ANION GAP 11 (5-19); BLOOD UREA NITROGEN 36 mg/dL (7-20); CALCIUM 8.9 mg/dL (8.4-10.2); CARBON DIOXIDE 31 mmol/L (22-30); CHLORIDE 102 mmol/L (98-107); GLUCOSE 84 mg/dL (75-110); POTASSIUM 3.6 mmol/L (3.6-5.0); SODIUM 143.8 mmol/L (137-145)
[2018-02-22 08:07] LABS: ABSOLUTE LYMPHOCYTES# (MANUAL) 0.4 10^3/uL (0.5-4.7); ABSOLUTE MONOCYTES # (MANUAL) 0.6 10^3/uL (0.1-1.4); ABSOLUTE NEUTROPHILS# (MANUAL) 6.7 10^3/uL (1.7-8.2); BAND NEUTROPHILS % (MANUAL) 3 % (3-5); BASOPHILS % (MANUAL) 0 % (0-2); EOSINOPHILS % (MANUAL) 0 % (0-6); LYMPHOCYTES % (MANUAL) 5 % (13-45); METAMYELOCYTES % (MANUAL) 1 % (0); MONOCYTES % (MANUAL) 8 % (3-13); SEGMENTED NEUTROPHILS % (MAN) 83 % (42-78); TOTAL CELLS COUNTED 100
[2018-02-22 08:08] LABS: ANISOCYTOSIS 1+; OVALOCYTES 1+; PLATELET COMMENT ADEQUATE; POIKILOCYTOSIS 1+; TOXIC GRANULATION SLIGHT
[2018-02-22] MEDS: ENOXAPARIN SODIUM INJ 40 MG/0.4 ML DISP.SYRIN SUBCUT SCH (12:45)
[2018-02-22] MEDS: LEVOFLOXACIN 750 MG TABLET PO SCH (12:45)
[2018-02-22] MEDS: LISINOPRIL 5 MG TABLET PO SCH (12:54)
[2018-02-22] MEDS: MAGNESIUM OXIDE 400 MG TABLET PO SCH (12:54)
[2018-02-22] MEDS: GUAIFENESIN 600 MG TABLET.SA PO SCH ×2 (12:55→21:59)
[2018-02-22] MEDS: CARVEDILOL 6.25 MG TABLET PO SCH ×2 (12:55→21:59)
[2018-02-22] MEDS: FUROSEMIDE 40 MG TABLET PO SCH (12:55)
[2018-02-22] MEDS: LANSOPRAZOLE 30 MG TAB.RAP.DR PO SCH (12:55)
[2018-02-22] MEDS: LINEZOLID 600 MG TABLET PO SCH ×2 (12:57→21:59)
[2018-02-22] MEDS: TIOTROPIUM BROMIDE DPI 5 CAP/KIT (18 MCG/CAP) IH SCH (12:58)
[2018-02-22] MEDS: PROMETHAZINE HCL INJ 25 MG/1 ML VIAL IV PRN (13:08)
[2018-02-22] MEDS ORDERED: LOPERAMIDE HCL 2 MG CAPSULE PO PRN (16:30)
--- NOTE | 2018-02-22 16:45 | PDOC PROGRESS REPORT ---
Subjective Progress Note for:: 02/22/18 Subjective:: Now c/o diarrhea, xple times. C. difficile is negative. And I wonder if this is was causing the diarrhea. Is been on Levaquin for 6 days for a positive Pseudomonas infection Reason For Visit: HCAP Physical Exam Vital Signs: Temp Pulse Resp BP Pulse Ox 97.6 F 98 16 111/63 100 02/22/18 12:47 02/22/18 12:47 02/22/18 12:47 02/22/18 12:47 02/22/18 12:47 Pulse Oximeter Continuous Start: 02/13/18 22: 09 Freq: RTQ4 Status: Complete Document 02/15/18 08:09 TPO (Rec: 02/15/18 08:22 TPO [email or web address]) Pulse Oximetry Assessment Oxygen Saturation (92-100) 100 Oxygen Flow Rate (L/min) 2 Oxygen Delivery Method Nasal Cannula Fraction of Inspired Oxygen (FIO2) 28 Equipment Usage Equipment in Use Continuous SpO2 Machine # 8 Intake & Output 02/21/18 02/22/18 02/23/18 06:59 06:59 06:59 Intake Total 1110 670 Balance 1110 670 Weight 82 kg General appearance: PRESENT: no acute distress, cooperative, obese Head exam: PRESENT: atraumatic Ear exam: PRESENT: normal external ear exam Respiratory exam: PRESENT: clear to auscultation jeff. ABSENT: accessory muscle use, crackles, rhonchi Cardiovascular exam: PRESENT: RRR, +S1, +S2 GI/Abdominal exam: PRESENT: normal bowel sounds, soft. ABSENT: distended, guarding, mass, organolmegaly, rebound, tenderness Rectal exam: PRESENT: deferred Musculoskeletal exam: PRESENT: ambulatory - With aid of a walker Neurological exam: PRESENT: alert, awake, oriented to person, oriented to place , oriented to time Results Laboratory Results: 02/22/18 06:13 02/22/18 06:13 02/22/18 02/22/18 06:13 06:13 WBC 7.7 RBC 3.24 L Hgb 10.7 L Hct 31.5 L MCV 97 MCH 33.0 MCHC 33.9 RDW 15.8 H Plt Count 219 Seg Neutrophils % Not Reportable Lymphocytes % Not Reportable Monocytes % Not Reportable Eosinophils % Not Reportable Basophils % Not Reportable Absolute Neutrophils Not Reportable Absolute Lymphocytes Not Reportable Absolute Monocytes Not Reportable Absolute Eosinophils Not Reportable Absolute Basophils Not Reportable Sodium 143.8 Potassium 3.6 Chloride 102 Carbon Dioxide 31 H Anion Gap 11 BUN 36 H Creatinine 1.15 Est GFR ( Amer) 56 L Est GFR (Non-Af Amer) 46 L Glucose 84 Calcium 8.9 Impressions: Chest X-Ray 02/13/18 18:59 IMPRESSION: Chronic lung changes. No acute cardiopulmonary disease suggested. Assessment & Plan - Time Time Spent with patient: 15-24 minutes Medications reviewed and adjusted accordingly: Yes Anticipated discharge: Home Within: within 48 hours - Inpatient Certification Based on my medical assessment, after consideration of the patient's comorbidities, presenting symptoms, or acuity I expect that the services needed warrant INPATIENT care.: Yes Medical Necessity: Significant Comorbidiites Make Outpatient Treatment Too Risky , Need Close Monitoring Due to Risk of Patient Decompensation - Plan Summary Plan Summary: 1. Healthcare associated pneumonia currently on Levaquin Day 6 with sputum cultures positive for Pseudomonas. If patient remains stable possibly DC Levaquin in a.m. 2. Acute hypoxemic and hypercapnic respiratory failurewill continue oxygen support 3. Acute kidney injury resolved 4. Dementia underlying. She is cared for at home by her grandson who wants her back at home at discharge 5. Right lower lobe pneumonia continue Levaquin. Obtain follow-up chest x-ray in a.m. and consider discontinuing Levaquin if no acute findings. Being the chart she actually has been on Levaquin since February 13 making 10 days. Her diarrhea is likely antibiotic associated 6. 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 Urinary tract infection yielding vancomycin-resistant enterococci. Continue Zyvox Day 3. This could be the etiology of the diarrhea 8. Hypothyroidism - continue Synthroid 9. Patient can possibly be discharged home in another day or 2
[2018-02-22] MEDS: CHOLESTYRAMINE/ASPARTAME 4 GM PACKET PO SCH ×2 (20:10→21:59)
[2018-02-22] MEDS: GLIMEPIRIDE 1 MG TABLET PO SCH (20:11)
[2018-02-23] MEDS: LEVOTHYROXINE SODIUM 0.088 MG TABLET PO SCH (05:38)
[2018-02-23] MEDS: CHOLESTYRAMINE/ASPARTAME 4 GM PACKET PO SCH ×4 (08:29→21:46)
[2018-02-23] MEDS ORDERED: PREDNISONE 20 MG TABLET PO SCH ×2 (10:00→15:45)
[2018-02-23] MEDS: LEVOFLOXACIN 750 MG TABLET PO SCH (11:27)
[2018-02-23] MEDS: ENOXAPARIN SODIUM INJ 40 MG/0.4 ML DISP.SYRIN SUBCUT SCH (11:28)
[2018-02-23] MEDS: MAGNESIUM OXIDE 400 MG TABLET PO SCH (11:28)
[2018-02-23] MEDS: LISINOPRIL 5 MG TABLET PO SCH (11:28)
[2018-02-23] MEDS: CARVEDILOL 6.25 MG TABLET PO SCH ×2 (11:29→22:00)
[2018-02-23] MEDS: FUROSEMIDE 40 MG TABLET PO SCH (11:29)
[2018-02-23] MEDS: GUAIFENESIN 600 MG TABLET.SA PO SCH ×2 (11:29→21:46)
[2018-02-23] MEDS: LINEZOLID 600 MG TABLET PO SCH ×2 (11:30→21:46)
[2018-02-23] MEDS: LANSOPRAZOLE 30 MG TAB.RAP.DR PO SCH (11:30)
[2018-02-23] MEDS: TIOTROPIUM BROMIDE DPI 5 CAP/KIT (18 MCG/CAP) IH SCH (11:38)
--- NOTE | 2018-02-23 15:52 | PDOC PROGRESS REPORT ---
Subjective Progress Note for:: 02/23/18 Subjective:: Now c/o diarrhea, xple times. Has been on Levaquin for 7 days for a positive Pseudomonas infection although i think this may have been a contaminant Reason For Visit: HCAP Physical Exam Vital Signs: Temp Pulse Resp BP Pulse Ox 98.5 F 89 15 110/68 98 02/23/18 12:00 02/23/18 12:00 02/23/18 12:00 02/23/18 12:00 02/23/18 12:00 Pulse Oximeter Continuous Start: 02/13/18 22: 09 Freq: RTQ4 Status: Complete Document 02/15/18 08:09 TPO (Rec: 02/15/18 08:22 TPO [email or web address]) Pulse Oximetry Assessment Oxygen Saturation (92-100) 100 Oxygen Flow Rate (L/min) 2 Oxygen Delivery Method Nasal Cannula Fraction of Inspired Oxygen (FIO2) 28 Equipment Usage Equipment in Use Continuous SpO2 Machine # 8 Intake & Output 02/22/18 02/23/18 02/24/18 06:59 06:59 06:59 Intake Total 670 962 Balance 670 962 Weight 82 kg 82.3 kg General appearance: PRESENT: no acute distress, well-developed, well-nourished Eye exam: PRESENT: conjunctiva pink, PERRLA Mouth exam: PRESENT: tongue midline Cardiovascular exam: PRESENT: RRR. ABSENT: diastolic murmur, rubs, systolic murmur GI/Abdominal exam: PRESENT: normal bowel sounds, soft. ABSENT: distended, guarding, mass, organolmegaly, rebound, tenderness Rectal exam: PRESENT: deferred Neurological exam: PRESENT: alert, awake, oriented to person, oriented to time, oriented to situation Results Laboratory Results: 02/22/18 06:13 02/22/18 06:13 Impressions: Chest X-Ray 02/13/18 18:59 IMPRESSION: Chronic lung changes. No acute cardiopulmonary disease suggested. Assessment & Plan - Time Time Spent with patient: 15-24 minutes Medications reviewed and adjusted accordingly: Yes Anticipated discharge: Home Within: within 24 hours - Inpatient Certification Based on my medical assessment, after consideration of the patient's comorbidities, presenting symptoms, or acuity I expect that the services needed warrant INPATIENT care.: Yes Medical Necessity: Need Close Monitoring Due to Risk of Patient Decompensation, Risk of Complication if Not Cared For in Hospital - Plan Summary Plan Summary: 1. Healthcare associated pneumonia currently on Levaquin Day 10 with sputum cultures positive for Pseudomonas. DC Levaquin, obtain CXR 2. Acute hypoxemic and hypercapnic respiratory failure will continue oxygen support 3. Acute kidney injury resolved 4. Dementia underlying. She is cared for at home by her grandson who wants her back at home at discharge [facility], aware of possible dc in am 5. Right lower lobe pneumonia continue Levaquin. 6. 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 Urinary tract infection yielding vancomycin-resistant enterococci. Continue Zyvox Day 4. 9. Patient can possibly be discharged home in am
--- NOTE | 2018-02-23 16:22 | RADIOLOGY REPORT (SQ) ---
EXAM DESCRIPTION: CHEST SINGLE VIEW COMPLETED DATE/TIME: 02/23/2018 4:15 pm REASON FOR STUDY: F/u [facility]NA COMPARISON: 02/13/2018 EXAM PARAMETERS: NUMBER OF VIEWS: One view. TECHNIQUE: Single frontal radiographic view of the chest acquired. RADIATION DOSE: NA LIMITATIONS: None. FINDINGS: LUNGS AND PLEURA: No opacities, masses or pneumothorax. No pleural effusion. MEDIASTINUM AND HILAR STRUCTURES: No masses. Contour normal. HEART AND VASCULAR STRUCTURES: Heart normal in size. Normal vasculature. BONES: No acute findings. HARDWARE: None in the chest. OTHER: No other significant finding. IMPRESSION: NO ACUTE RADIOGRAPHIC FINDING IN THE CHEST. TECHNICAL DOCUMENTATION: JOB ID: [id number] [employer]- All Rights Reserved Reading location - IP/workstation name: [email or web address]
[2018-02-24] MEDS: LEVOTHYROXINE SODIUM 0.088 MG TABLET PO SCH (06:24)
[2018-02-24] MEDS: CARVEDILOL 6.25 MG TABLET PO SCH (09:42)
[2018-02-24] MEDS: LANSOPRAZOLE 30 MG TAB.RAP.DR PO SCH (09:43)
[2018-02-24] MEDS: LINEZOLID 600 MG TABLET PO SCH (09:43)
[2018-02-24] MEDS: FUROSEMIDE 40 MG TABLET PO SCH (09:43)
[2018-02-24] MEDS: MAGNESIUM OXIDE 400 MG TABLET PO SCH (09:43)
[2018-02-24] MEDS: GUAIFENESIN 600 MG TABLET.SA PO SCH (09:43)
[2018-02-24] MEDS: LISINOPRIL 5 MG TABLET PO SCH (09:44)
[2018-02-24] MEDS: INSULIN LISPRO 100 UNIT/ML 3 ML VIAL SUBCUT PRN ×2 (09:44→14:19)
[2018-02-24] MEDS: ENOXAPARIN SODIUM INJ 40 MG/0.4 ML DISP.SYRIN SUBCUT SCH (09:44)
[2018-02-24] MEDS: CHOLESTYRAMINE/ASPARTAME 4 GM PACKET PO SCH ×2 (09:45→14:13)
[2018-02-24] MEDS: TIOTROPIUM BROMIDE DPI 5 CAP/KIT (18 MCG/CAP) IH SCH (10:52)
[2018-02-24 13:21] VITALS: BP 97/51
--- NOTE | 2018-02-24 13:26 | PDOC DISCHARGE SUMMARY ---
General - Admit/Disc Date/PCP Admission Date/Primary Care Provider: 02/13/18 21:01 ARASELI AGUILAR MD Discharge Date: 02/24/18 - Discharge Diagnosis (1) Acute and chronic respiratory failure Is this a current diagnosis for this admission?: Yes (2) Sepsis Is this a current diagnosis for this admission?: Yes (3) HCAP (healthcare-associated pneumonia) Is this a current diagnosis for this admission?: Yes (4) UTI (urinary tract infection) Is this a current diagnosis for this admission?: Yes (5) MARY LOU (acute kidney injury) Is this a current diagnosis for this admission?: Yes (6) Anemia Is this a current diagnosis for this admission?: Yes (7) Small cell lung cancer Is this a current diagnosis for this admission?: Yes (8) COPD with exacerbation Is this a current diagnosis for this admission?: Yes (9) Obesity with serious comorbidity Is this a current diagnosis for this admission?: Yes - Additional Information Discharge Diet: Diabetic Discharge Activity: Activity As Tolerated Prescriptions: Linezolid [Zyvox 600 mg Tablet] 600 mg PO Q12 #7 tablet Home Medications: Albuterol Sulfate [Proair HFA Inhalation Aerosol 8.5 gm MDI] 2 puff IH Q4HP PRN 01/08/18 Carvedilol [Coreg 6.25 mg Tablet] 6.25 mg PO Q12 01/08/18 Glimepiride [Amaryl 1 mg Tablet] 1 mg PO DAILY 01/08/18 Ipratropium/Albuterol Sulfate [Duoneb 3 ml Ampul] 3 ml NEB [id number] 01/08/18 Levalbuterol HCl [Xopenex Neb 1.25 mg/3 ml Ampul] 1.25 mg NEB RTQ4HP PRN Lisinopril [Zestril] 5 mg PO DAILY 01/08/18 Magnesium Oxide [Mag-Ox 400 mg Tablet] 400 mg PO DAILY 01/08/18 Pantoprazole Sodium [Protonix] 40 mg PO DAILY 01/08/18 Tiotropium [place] [Spiriva Handihaler 18 mcg/dose (30 Dose)] 18 mcg IH DAILY Levothyroxine Sodium [Synthroid 0.088 mg Tablet] 0.088 mg PO Q6AM tablet Furosemide [Lasix 40 mg Tablet] 40 mg PO DAILY #0 tab 01/30/18 Lactulose [Cephulac Syrup 20 gm/30 ml Udcup] 20 gm PO TIDP PRN 30 Days #1 bottle 01/30/18 Linezolid [Zyvox 600 mg Tablet] 600 mg PO Q12 #7 tablet 02/24/18 History of Present Illness History of Present Illness: TRENTON MCCOY is a 72 year old female who has chronic respiratory failure on 2 L oxygen via nasal cannula secondary to emphysema, comes to the emergency department with progressive shortness of breath, cough with greenish sputum, wheezing. EMS found her saturating 84% on 3 L oxygen via nasal cannula. Apparently did not have any fever or chills but complains of some dizziness and pleuritic chest pain on the left side. VBG in the ED with a CO2 of 71 with her baseline is in the 50s, patient was initiated on BiPAP. Patient is a very poor historian apparently has diagnosis of dementia. Daily tachycardia with a pulse of 145, respiration 28. White blood cells count of 21.5 with a left shift and bands. Patient is a catheter for sepsis. Chest x -ray does not show infiltrates but she is highly suspicious for pneumonia. Denies abdominal pain, changes in her urine or bowel movements. Hospital Course Hospital Course: This patient was admitted with difficulty breathing and shortness of breath. She was found to be initially hypoxemic. She was thought to have healthcare associated pneumonia. Patient was hypoxemic as well as tachycardic and tachypneic on initial presentation and initial white count was 21,000. Although initial chest x-ray shows no evidence of any infiltrates and subsequent x-ray done yesterday was also negative for acute findings patient was thought to have had pneumonia with sepsis. She was treated with intravenous antibiotics and she has completed a 10 day course of Levaquin. She was started on Zyvox for vancomycin resistant enterococcus UTI and to finish the course as outpatient. She was treated for COPD with acute exacerbation and has completed a course of steroids. Acute kidney injury which is likely secondary to ATN which was present on admission has since resolved. Next Patient has continued to improve and she has been hemodynamically stable after a prolonged hospital stay. He has been evaluated by physical therapy and has been able to ambulate and she is likely close to her baseline. Hypoglycemic agents were held while in hospital as her blood sugars were a borderline low. This can be reevaluated as outpatient and she can be restarted on her medications as indicated She is being discharged home in stable condition. Physical Exam Vital Signs: Temp Pulse Resp BP Pulse Ox 98.1 F 86 20 103/61 100 02/24/18 08:00 02/24/18 08:00 02/24/18 08:00 02/24/18 08:00 02/24/18 08:00 Pulse Oximeter Continuous Start: 02/13/18 22: 09 Freq: RTQ4 Status: Complete Document 02/15/18 08:09 TPO (Rec: 02/15/18 08:22 TPO [email or web address]) Pulse Oximetry Assessment Oxygen Saturation (92-100) 100 Oxygen Flow Rate (L/min) 2 Oxygen Delivery Method Nasal Cannula Fraction of Inspired Oxygen (FIO2) 28 Equipment Usage Equipment in Use Continuous SpO2 Machine # 8 Intake & Output 02/23/18 02/24/18 02/25/18 06:59 06:59 06:59 Intake Total 962 1234 Balance 962 1234 Weight 82.3 kg 82.4 kg General appearance: PRESENT: no acute distress, morbidly obese, well-developed, well-nourished Head exam: PRESENT: atraumatic, normocephalic Eye exam: PRESENT: conjunctiva pink, EOMI, PERRLA. ABSENT: scleral icterus Ear exam: PRESENT: normal external ear exam Mouth exam: PRESENT: moist, tongue midline Neck exam: ABSENT: carotid bruit, JVD, lymphadenopathy, thyromegaly Respiratory exam: PRESENT: decreased breath sounds. ABSENT: rales, rhonchi, wheezes Cardiovascular exam: PRESENT: RRR, +S1, +S2, systolic murmur - 3/6. ABSENT: diastolic murmur, rubs Pulses: PRESENT: normal dorsalis pedis pul Vascular exam: PRESENT: normal capillary refill GI/Abdominal exam: PRESENT: normal bowel sounds, soft. ABSENT: distended, guarding, mass, organolmegaly, rebound, tenderness Rectal exam: PRESENT: deferred Extremities exam: PRESENT: full ROM. ABSENT: calf tenderness, clubbing, pedal edema Neurological exam: PRESENT: alert, awake, oriented to person, oriented to place , oriented to time, oriented to situation, CN II-XII grossly intact. ABSENT: motor sensory deficit Psychiatric exam: PRESENT: appropriate affect, normal mood. ABSENT: homicidal ideation, suicidal ideation Skin exam: PRESENT: dry, intact, warm. ABSENT: cyanosis, rash Results Laboratory Results: 02/22/18 06:13 02/22/18 06:13 Impressions: Chest X-Ray 02/23/18 00:00 IMPRESSION: NO ACUTE RADIOGRAPHIC FINDING IN THE CHEST. Qualifiers - * PATIENT BEING DISCHARGED WITH ANY OF THE FOLLOWING DIAGNOSIS: No Plan Time Spent: Greater than 30 Minutes
== END 2018-02-24 17:00 | disposition home health service (06) | DRG 871 ==
LOC: ER 18:46 → UNDOADMIN 21:01 → EH 21:01 → 4S 02-14 00:21
PROVIDERS: ADMIT Internal Medicine; ATTEND Internal Medicine
PROC: 5A09457 Assistance with Respiratory Ventilation, 24-96 Consecutive Hours, Continuous Positive Airway Pressure (ICD-10-PCS; principal; 2018-02-13)
DX: A41.9 Sepsis, unspecified organism (principal); J96.21 Acute and chronic respiratory failure with hypoxia; J15.1 Pneumonia due to Pseudomonas; N17.0 Acute kidney failure with tubular necrosis; J96.22 Acute and chronic respiratory failure with hypercapnia; J44.0 Chronic obstructive pulmonary disease with (acute) lower respiratory infection; N39.0 Urinary tract infection, site not specified; E87.6 Hypokalemia; J43.9 Emphysema, unspecified; I50.9 Heart failure, unspecified; I11.0 Hypertensive heart disease with heart failure; E11.9 Type 2 diabetes mellitus without complications; I25.10 Atherosclerotic heart disease of native coronary artery without angina pectoris; E66.9 Obesity, unspecified; D64.9 Anemia, unspecified; F03.90 Unspecified dementia, unspecified severity, without behavioral disturbance, psychotic disturbance, mood disturbance, and anxiety; B95.2 Enterococcus as the cause of diseases classified elsewhere; E03.9 Hypothyroidism, unspecified; K21.9 Gastro-esophageal reflux disease without esophagitis; M19.90 Unspecified osteoarthritis, unspecified site; Z16.21 Resistance to vancomycin; Z88.0 Allergy status to penicillin; Z88.8 Allergy status to other drugs, medicaments and biological substances; Z88.3 Allergy status to other anti-infective agents; Z87.891 Personal history of nicotine dependence; I25.2 Old myocardial infarction; Z99.81 Dependence on supplemental oxygen; Z90.49 Acquired absence of other specified parts of digestive tract; Z79.84 Long term (current) use of oral hypoglycemic drugs; Z79.899 Other long term (current) drug therapy; Z92.21 Personal history of antineoplastic chemotherapy; Z85.118 Personal history of other malignant neoplasm of bronchus and lung; Z85.841 Personal history of malignant neoplasm of brain; Y95 Nosocomial condition
CPT/HCPCS: 36415; 71045; 71046; 80048; 80053; 81001; 82272; 82550; 82553; 82803; 82962; 83605; 83735; 84484; 85025; 85610; 87040; 87070; 87077; 87086; 87088; 87186; 87205; 87493; 93005; 93010; 94640; 94660; 94762; 99285; G8978-GP; G8979-GP; G8987-GO; G8988-GO; J0692; J0696; J1650; J1815; J1956; J2550; J2765; J2920; J2930; J3480; J3490; J7030; J7512; J7620

== ENCOUNTER 2018-03-03 23:17 | Inpatient (IN) | payer MEDICARE, OTHER ==
[2018-03-03] MEDS ORDERED: IPRATROPIUM/ALBUTEROL 0.5-2.5 MG/3 ML AMPUL NEB ONE (23:29)
[2018-03-03] MEDS ORDERED: METHYLPREDNISOLONE INJ 125 MG/2 ML SDV IV ONE (23:29)
--- NOTE | 2018-03-03 23:33 | ER Document Report ---
ED General - General Stated Complaint: BREATHING DIFFICULTY Time Seen by Provider: 03/03/18 23:24 Notes: Patient is a 72-year-old female who is well-known to the ED has a history of COPD as well as congestive heart failure presents with difficulty breathing. She is released from the hospital just about a week ago after being treated for hospital acquired pneumonia. She was septic at that time. She just finished her course of antibiotics. She says she was doing well when she was first discharged from the hospital but proximal with 3 days ago started feeling short of breath again. She denies any fevers. She denies any vomiting. She denies any chest pain. Paramedics said when they first arrived her lung curtis were clear however in route she started to develop a lot of wheezing. She did not receive any treatment in the ambulance other than a small amount of IV fluids because she was hypotensive. TRAVEL OUTSIDE OF THE [place] IN LAST 30 DAYS: No - Related Data Allergies/Adverse Reactions: azithromycin Allergy (Verified 02/13/18 19:28) amoxicillin [Amoxicillin] Adverse Reaction (Verified 02/13/18 19:28) visual hallucinations erythromycin base [Erythromycin Base] Adverse Reaction (Verified 02/13/18 19:28) visual hallucinations Potassium Clavulanate * [From Augmentin] Adverse Reaction (Verified 02/13/18 19: 28) visual hallucinations Past Medical History - Social History Smoking Status: Current Every Day Smoker Frequency of alcohol use: None Drug Abuse: None Family History: COPD, Malignancy - Lung cancer - Past Medical History Cardiac Medical History: Reports: Hx Congestive Heart Failure, Hx Coronary Artery Disease, Hx Heart Attack, Hx Hypertension Denies: Hx DVT, Hx Hypercholesterolemia, Hx Pulmonary Embolism Pulmonary Medical History: Reports: Hx Asthma, Hx Bronchitis, Hx COPD - 2 L nasal home oxygen, Hx Pneumonia, Hx Respiratory Failure - Chronic respiratory failure Denies: Hx Sleep Apnea, Hx Tuberculosis Neurological Medical History: Denies: Hx Seizures Endocrine Medical History: Reports: Hx Diabetes Mellitus Type 2, Hx Hypothyroidism. 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 Denies: Hx Cirrhosis, Hx Hepatitis, Hx Ulcer Musculoskeletal Medical History: Reports Hx Arthritis, Denies Hx Multiple Sclerosis, Reports Hx Musculoskeletal Deformity, Reports Hx Musculoskeletal Trauma Psychiatric Medical History: Reports: Hx Dementia, Hx Depression Denies: Hx Bipolar Disorder, Hx Schizophrenia Infectious Medical History: Reports: Hx C-Diff. Denies: Hx Hepatitis Past Surgical History: Reports: Hx Cholecystectomy, Hx Orthopedic Surgery - Foot surgery, Other - cataract bilateral - Immunizations Hx Diphtheria, Pertussis, Tetanus Vaccination: Yes Hx Pneumococcal Vaccination: 08/30/12 Review of Systems - Review of Systems Notes: My Normal Review Basic REVIEW OF SYSTEMS: CONSTITUTIONAL : Denies fever, chills, or sweats. Denies recent illness. EENT: Denies eye, ear, throat, or mouth pain or symptoms. Denies nasal or sinus congestion. CARDIOVASCULAR: Denies chest pain. RESPIRATORY: Difficulty breathing GASTROINTESTINAL: Denies abdominal pain. Denies nausea, vomiting, or diarrhea. GENITOURINARY: Denies difficulty urinating, painful urination, burning, frequency, or blood in urine. MUSCULOSKELETAL: Denies neck or back pain or joint pain or swelling. SKIN: Denies rash or skin lesions. NEUROLOGICAL: Denies altered mental status or loss of consciousness. Denies headache. Denies weakness or paralysis or loss of use of either side. Denies problems with gait or speech. Denies sensory or motor loss. ALL OTHER SYSTEMS REVIEWED AND NEGATIVE. Physical Exam - Vital signs Vitals: Pulse Ox 99 03/03/18 23:26 - Notes Notes: General Appearance: Well nourished, alert, cooperative, mild acute distress, no obvious discomfort. Well-appearing. Vitals: reviewed, See vital signs table. Head: no swelling or tenderness to the head Eyes: PERRL, EOMI, Conjuctiva clear Mouth: No decreasd moisture Throat: No tonsillar inflammation, No airway obstruction, No lymphadenopathy Neck: Supple, no neck tenderness, No thyromegaly Lungs: Diffuse wheezing, No rales, No rhonci, mild accessory muscle use, fair air exchange bilaterally. Heart: Tachycardic rate, Regular rythm, No murmur, no rub Abdomen: Normal BS, soft, No rigidity, No abdominal tenderness, No guarding, no rebound, Extremities: strength 5/5 in all extremities, good pulses in all extremities, no swelling or tenderness in the extremities, no edema. Skin: warm, dry, appropriate color, no rash Neuro: speech clear, oriented x 3, normal affect, responds appropriately to questions. Course - Re-evaluation Re-evalutation: 03/04/18 00:22 Patient's wheezing is slowly improving. Her blood pressure conitues to fluctuate. It was recently dropped to 82 systolically. I therefore aborted a 500 mL's of normal saline. I will continue to give fluid boluses slowly as patient does have history of CHF. 03/04/18 01:36 On reevaluation patient is a her breathing is much improved over her lung curtis are still tight and wheezing. Her blood pressure continues to fluctuate and mostly systolically in the 80s. I will give her 500 mL's warm normal saline. I sent a d-dimer to make sure is no evidence of PE. I have not yet found any source of infection to suggest that this is sepsis related. 03/04/18 02:38 D-dimer has not yet been drawn. Patient's urinalysis came back showing that she is in urosepsis and this explains her tachycardia and hypotension. I have canceled the d-dimer. She does not have any chest pain. No pleuritic chest pain. I will consult the hospitalist for consideration for admission. Her blood pressure is now more stabilized. Current blood pressure is 97/57. I spoke with Dr. Johnson who evaluated the patient for admission. 03/04/18 06:11 Dictation of this chart was performed using voice recognition software; therefore, there may be some unintended grammatical errors. - Vital Signs Vital signs: Temp Pulse Resp BP Pulse Ox 97.9 F 112 H 17 100/74 100 03/04/18 04:00 03/04/18 04:42 03/04/18 04:30 03/04/18 04:30 03/04/18 04:30 - Laboratory Result Diagrams: 03/04/18 00:01 03/04/18 00:01 Laboratory results interpreted by me: 03/04/18 03/04/18 03/04/18 00:01 00:01 00:01 WBC 10.8 H RBC 2.52 L Hgb 8.2 L Hct 24.2 L RDW 15.6 H Seg Neuts % (Manual) 92 H Band Neutrophils % 2 L Lymphocytes % (Manual) 1 L Abs Neuts (Manual) 10.2 H Abs Lymphs (Manual) 0.1 L APTT Potassium 3.4 L BUN 32 H Creatinine 1.33 H Est GFR ( Amer) 47 L Est GFR (Non-Af Amer) 39 L Glucose 284 H Lactic Acid Calcium 8.1 L AST 12 L Total Protein 4.9 L Albumin 2.6 L Free T3 pg/mL 2.16 L Urine Blood Ur Leukocyte Esterase 03/04/18 03/04/18 03/04/18 01:02 01:19 02:26 WBC RBC Hgb Hct RDW Seg Neuts % (Manual) Band Neutrophils % Lymphocytes % (Manual) Abs Neuts (Manual) Abs Lymphs (Manual) APTT 20.2 L Potassium BUN Creatinine Est GFR ( Amer) Est GFR (Non-Af Amer) Glucose Lactic Acid 2.9 H Calcium AST Total Protein Albumin Free T3 pg/mL Urine Blood MODERATE H Ur Leukocyte Esterase LARGE H - EKG Interpretation by Me Additional EKG results interpreted by me: 03/03/18 23:30 03/03/18 23:42 03/03/18 23:42 EKG shows sinus tachycardia with a rate of [address] segment changes in comparison to her old EKG from February 13, 2018. Patient does have a right bundle branch block which is unchanged comparison to previous EKG. VT interval is within normal range. QRS duration and QTc intervals are prolonged. Critical Care Note - Critical Care Note Total time excluding time spent on procedures (mins): 45 Comments: Critical care time for this patient not including time spent on procedures approximately 45 minutes due to frequent re-evaluations and management of hypertension and difficulty breathing. Discharge - Discharge Clinical Impression: UTI (urinary tract infection) Qualifiers: Urinary tract infection type: site unspecified Hematuria presence: without hematuria Qualified Code(s): N39.0 - Urinary tract infection, site not specified Sepsis Qualifiers: Sepsis type: sepsis due to unspecified organism Qualified Code(s): A41.9 - Sepsis, unspecified organism COPD (chronic obstructive pulmonary disease) Qualifiers: COPD type: unspecified COPD Qualified Code(s): J44.9 - Chronic obstructive pulmonary disease, unspecified Condition: Stable Disposition: ADMITTED INPATIENT Admitting Provider: Hospitalist Unit Admitted: [facility]
[2018-03-04] MEDS ORDERED: NORMAL SALINE 500 ML IV ONE ×2 (00:20→01:35)
--- NOTE | 2018-03-04 00:21 | RADIOLOGY REPORT (SQ) ---
EXAM DESCRIPTION: XR CHEST 1 VIEW COMPLETED DATE/TME: 03/03/2018 23:29 CLINICAL HISTORY: 72 years Female, difficulty breathing COMPARISON: 11/25/2017, CTA, 11/28/2017 NUMBER OF VIEWS/TECHNIQUE: 1/AP FINDINGS: Adequate lung volume, small chronic right perihilar scar pattern consistent with history of prior radiation therapy, chronic prominent cardiophrenic fat/scar,, normal cardiac silhouette, and intact bony thorax. IMPRESSION: No acute cardiopulmonary findings. Stable right perihilar scar.
[2018-03-04] MEDS ORDERED: IPRATROPIUM/ALBUTEROL 0.5-2.5 MG/3 ML AMPUL NEB ONE (00:22)
[2018-03-04 00:27] LABS: HEMATOCRIT 24.2 % (36.0-47.0); HEMOGLOBIN 8.2 g/dL (12.0-15.5); MEAN CORPUSCULAR HEMOGLOBIN 32.6 pg (27.0-33.4); MEAN CORPUSCULAR VOLUME 96 fl (80-97); PLATELET COUNT 174 10^3/uL (150-450); RED BLOOD COUNT 2.52 10^6/uL (3.72-5.28); RED CELL DISTRIBUTION WIDTH 15.6 % (11.5-14.0); WHITE BLOOD COUNT 10.8 10^3/uL (4.0-10.5)
[2018-03-04 00:31] LABS: VENOUS BLOOD HCO3 29.3 mmol/L (20-32); VENOUS BLOOD PCO2 61.3 mmHg (35-63); VENOUS BLOOD PH 7.3 (7.30-7.42)
[2018-03-04 00:43] LABS: ALANINE AMINOTRANSFERASE 27 U/L (9-52); ALBUMIN 2.6 g/dL (3.5-5.0); ALKALINE PHOSPHATASE 88 U/L (38-126); ANION GAP 13 (5-19); ASPARTATE AMINO TRANSFERASE 12 U/L (14-36); BILIRUBIN,DIRECT 0.2 mg/dL (0.0-0.4); BILIRUBIN,TOTAL 0.2 mg/dL (0.2-1.3); BLOOD UREA NITROGEN 32 mg/dL (7-20); CALCIUM 8.1 mg/dL (8.4-10.2); CARBON DIOXIDE 28 mmol/L (22-30); CHLORIDE 101 mmol/L (98-107); GLUCOSE 284 mg/dL (75-110); POTASSIUM 3.4 mmol/L (3.6-5.0); SODIUM 141.5 mmol/L (137-145); TOTAL PROTEIN 4.9 g/dL (6.3-8.2)
[2018-03-04 00:46] LABS: ABSOLUTE LYMPHOCYTES# (MANUAL) 0.1 10^3/uL (0.5-4.7); ABSOLUTE MONOCYTES # (MANUAL) 0.5 10^3/uL (0.1-1.4); ABSOLUTE NEUTROPHILS# (MANUAL) 10.2 10^3/uL (1.7-8.2); BAND NEUTROPHILS % (MANUAL) 2 % (3-5); BASOPHILS % (MANUAL) 0 % (0-2); EOSINOPHILS % (MANUAL) 0 % (0-6); LYMPHOCYTES % (MANUAL) 1 % (13-45); MONOCYTES % (MANUAL) 5 % (3-13); SEGMENTED NEUTROPHILS % (MAN) 92 % (42-78); TOTAL CELLS COUNTED 100
[2018-03-04 00:48] LABS: HYPOCHROMASIA 1+
[2018-03-04 00:49] LABS: ANISOCYTOSIS SLIGHT; OVALOCYTES 1+; PLATELET COMMENT ADEQUATE; TEAR DROP CELLS 1+
[2018-03-04 01:48] LABS: FREE T3 2.16 pg/mL (2.77-5.27); FREE T4 (FREE THYROXINE) 1.09 ng/dL (0.78-2.19)
[2018-03-04 01:54] LABS: APPEARANCE,URINE CLOUDY; BILIRUBIN,URINE NEGATIVE (NEGATIVE); COLOR,URINE YELLOW; GLUCOSE, URINE NEGATIVE (NEGATIVE); KETONES,URINE NEGATIVE (NEGATIVE); LEUKOCYTE ESTERASE,URINE LARGE (NEGATIVE); NITRITE,URINE NEGATIVE (NEGATIVE); PROTEIN,URINE NEGATIVE (NEGATIVE); URINE SPECIFIC GRAVITY 1.015; UROBILINOGEN,URINE NEGATIVE mg/dL (<2.0)
[2018-03-04 02:01] LABS: THYROID STIMULATING HORMONE 1.63 uIU/mL (0.47-4.68)
[2018-03-04] MEDS ORDERED: CEFTRIAXONE INJ 1000 MG VIAL IV ONE (02:39)
[2018-03-04] MEDS ORDERED: NORMAL SALINE 1000 ML 1,000 ML IV ONE (03:02)
[2018-03-04] MEDS ORDERED: ALBUTEROL SULFATE 0.083% NEB 2.5 MG/3 ML AMPUL NEB ONE (03:03)
[2018-03-04] MEDS ORDERED: ACETAMINOPHEN 325 MG TABLET PO PRN (03:24)
[2018-03-04] MEDS ORDERED: GUAIFENESIN SYRP 200 MG/10 ML UDC PO PRN (03:24)
[2018-03-04 03:43] LABS: INTERNATIONAL RATION (INR) 0.82; PARTIAL THROMBOPLASTIN TIME 20.2 SEC (23.5-35.8); PROTHROMBIN TIME 11.8 SEC (11.4-15.4)
[2018-03-04] MEDS ORDERED: CEFEPIME 1 GM/D5W RTU 1 GM/50 ML RTUPB IV ONE ×2 (03:45→05:56)
[2018-03-04] MEDS ORDERED: GLUCAGON,HUMAN RECOMB 1 MG INJ IM PRN (04:02)
[2018-03-04] MEDS ORDERED: DEXTROSE 40% GEL 15 GM TUBE PO PRN ×2 (04:02)
[2018-03-04] MEDS ORDERED: DEXTROSE 50%-WATER 25 GM/50 ML DISP.SYRIN IV PRN ×2 (04:02)
--- NOTE | 2018-03-04 04:14 | PDOC H&P ---
History of Present Illness Admission Date/PCP: 03/04/18 02:59 ARASELI AGUILAR MD Patient complains of: difficulty breathing and burning on urination History of Present Illness: TRENTON DIALLO is a 72 year old woman who is well-known to this hospital and who has a history of COPD as well as congestive heart failure presented to ED with difficulty breathing. She was DCed from the hospital just about a week ago after being treated for hospital acquired pneumonia and sepsis. She just finished her course of antibiotics at home. She says she was doing well when she was first discharged from the hospital but about 3 days ago started feeling short of breath again. She denies any fevers. She denies any vomiting. She denies any chest pain. She has been coughing up a little green phlegm. Paramedics said when they first arrived her lung curtis were clear however in route she started to develop a lot of wheezing. In the ED she received fluids, ceftriaxone. On my eval she has COPD with exacerbation, UTI, sepsis, possible recurrent vs resolving pneumonia. Admit to hospitalist service for furthur eval and care. Past Medical History Cardiac Medical History: Reports: Congestive Heart Failure, Coronary Artery Disease, Myocardial Infarction, Hypertension Denies: DVT, Hyperlipidema, Pulmonary Embolism Pulmonary Medical History: Reports: Asthma, Bronchitis, Chronic Obstructive Pulmonary Disease (COPD) - 2 L nasal home oxygen, Pneumonia, Respiratory Failure - Chronic respiratory failure Denies: Sleep Apnea, Tuberculosis EENT Medical History: Denies: Eyes Neurological Medical History: Denies: Seizures Endocrine Medical History: Reports: Diabetes Mellitus Type 2, Hypothyroidism Denies: Diabetes Mellitus Type 1, Hyperthyroidism Renal/ Medical History: Reports: Chronic Kidney Disease Denies: End Stage Renal Disease Malignancy Medical History: Reports: 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 with brain mets GI Medical History: Reports: Gastroesophageal Reflux Disease Denies: Cirrhosis, Hepatitis Musculoskeltal Medical History: Reports: Arthritis Psychiatric Medical History: Reports: Dementia, Depression Denies: Bipolar Disorder Hematology: Reports: Anemia, Bleeding Tendencies Infectious Medical History: Reports: Clostridium Difficile Past Surgical History Past Surgical History: Reports: Cholecystectomy, Orthopedic Surgery - Foot surgery, Other - cataract bilateral Social History Information Source: Patient, Emergency Med Personnel Lives with: Other - she has a trailer home and 5 people live with her Smoking Status: Current Every Day Smoker Frequency of Alcohol Use: None Hx Recreational Drug Use: No Drugs: None Hx Prescription Drug Abuse: No - Advance Directive Resuscitation Status: Full Code Surrogate healthcare decision maker:: roldan Diallo phone: [phone] Family History Family History: COPD, Malignancy - Lung cancer Parental Family History Reviewed: Yes - mom and dad with unknown cancers Children Family History Reviewed: Yes - 2 healthy children alive, 2 children Sibling(s) Family History Reviewed.: Yes - 2 brothers of natural causes Medication/Allergy Home Medications: Albuterol Sulfate [Proair HFA Inhalation Aerosol 8.5 gm MDI] 2 puff IH Q4HP PRN 01/08/18 Carvedilol [Coreg 6.25 mg Tablet] 6.25 mg PO Q12 01/08/18 Glimepiride [Amaryl 1 mg Tablet] 1 mg PO DAILY 01/08/18 Ipratropium/Albuterol Sulfate [Duoneb 3 ml Ampul] 3 ml NEB [id number] 01/08/18 Levalbuterol HCl [Xopenex Neb 1.25 mg/3 ml Ampul] 1.25 mg NEB RTQ4HP PRN Lisinopril [Zestril] 5 mg PO DAILY 01/08/18 Magnesium Oxide [Mag-Ox 400 mg Tablet] 400 mg PO DAILY 01/08/18 Pantoprazole Sodium [Protonix] 40 mg PO DAILY 01/08/18 Tiotropium [place] [Spiriva Handihaler 18 mcg/dose (30 Dose)] 18 mcg IH DAILY Levothyroxine Sodium [Synthroid 0.088 mg Tablet] 0.088 mg PO Q6AM tablet Furosemide [Lasix 40 mg Tablet] 40 mg PO DAILY #0 tab 01/30/18 Lactulose [Cephulac Syrup 20 gm/30 ml Udcup] 20 gm PO TIDP PRN 30 Days #1 bottle 01/30/18 Linezolid [Zyvox 600 mg Tablet] 600 mg PO Q12 #7 tablet 02/24/18 Allergies/Adverse Reactions: azithromycin Allergy (Verified 02/13/18 19:28) amoxicillin [Amoxicillin] Adverse Reaction (Verified 02/13/18 19:28) visual hallucinations erythromycin base [Erythromycin Base] Adverse Reaction (Verified 02/13/18 19:28) visual hallucinations Potassium Clavulanate * [From Augmentin] Adverse Reaction (Verified 02/13/18 19: 28) visual hallucinations Review of Systems Constitutional: PRESENT: weakness. ABSENT: fever(s), headache(s) Eyes: ABSENT: visual disturbances Ears: ABSENT: hearing changes Nose, Mouth, and Throat: ABSENT: sore throat Cardiovascular: PRESENT: chest pain, dyspnea on exertion. ABSENT: edema Respiratory: PRESENT: cough, sputum Gastrointestinal: PRESENT: abdominal pain. ABSENT: nausea, vomiting Genitourinary: PRESENT: dysuria. ABSENT: hematuria Musculoskeletal: PRESENT: muscle weakness. ABSENT: back pain Integumentary: PRESENT: rash. ABSENT: wounds Neurological: PRESENT: frequent falls, memory loss, weakness Psychiatric: PRESENT: depression. ABSENT: anxiety Hematologic/Lymphatic: ABSENT: easy bleeding, easy bruising Allergic/Immunologic: ABSENT: seasonal rhinorrhea Physical Exam Vital Signs: Temp Pulse Resp BP Pulse Ox 98.0 F 15 95/56 L 99 03/03/18 23:34 03/04/18 02:45 03/04/18 02:45 03/04/18 02:45 General appearance: PRESENT: no acute distress, cooperative, obese Head exam: PRESENT: atraumatic, normocephalic Eye exam: PRESENT: EOMI. ABSENT: conjunctival injection, scleral icterus Ear exam: PRESENT: normal external ear exam Mouth exam: PRESENT: moist, tongue midline Neck exam: ABSENT: tenderness Respiratory exam: PRESENT: decreased breath sounds, prolonged expiratory phas, unlabored, wheezes. ABSENT: crackles, rhonchi Cardiovascular exam: PRESENT: RRR. ABSENT: systolic murmur Pulses: PRESENT: normal radial pulses GI/Abdominal exam: PRESENT: normal bowel sounds, soft. ABSENT: ascites, distended, guarding, tenderness Rectal exam: PRESENT: deferred Gentrourinary exam: PRESENT: lesions - erythematous and excoriated groin and labia. ABSENT: indwelling catheter Extremities exam: ABSENT: pedal edema Neurological exam: PRESENT: awake, oriented to person, oriented to place, oriented to situation, CN II-XII grossly intact Psychiatric exam: PRESENT: appropriate affect. ABSENT: anxious Skin exam: PRESENT: intact, rash, warm Results Impressions: Chest X-Ray 03/03/18 23:29 IMPRESSION: No acute cardiopulmonary findings. Stable right perihilar scar. Assessment & Plan - Diagnosis (1) Sepsis Qualifiers: Sepsis type: sepsis due to unspecified organism Qualified Code(s): A41.9 - Sepsis, unspecified organism Is this a current diagnosis for this admission?: Yes Plan: Patient has urinary tract infection and so sepsis could be related to this. She has elevated lactic acid level and tachycardia. She has received some fluid in the ER. Blood pressure was low in the ER and has responded to fluids. We will continue to watch closely and we will continue judicious IV fluids. Will follow lactic acid level. She was given ceftriaxone in the ER and I have changed her antibiotic to cefepime. Consider vancomycin should patient not improve quickly. Blood urine and sputum cultures are pending. Patient is on telemetry admitted to the [facility]. (2) UTI (urinary tract infection) Qualifiers: Urinary tract infection type: site unspecified Hematuria presence: without hematuria Qualified Code(s): N39.0 - Urinary tract infection, site not specified Is this a current diagnosis for this admission?: Yes Plan: Urine culture is pending. Cefepime has been started. (3) COPD exacerbation Is this a current diagnosis for this admission?: Yes Plan: Patient has dyspnea and wheezing. She is started on cefepime, IV steroids, scheduled duo nebs and as needed Xopenex. (4) DVT prophylaxis Is this a current diagnosis for this admission?: Yes Plan: SCDs ordered as patient is anemic, unknown baseline hemoglobin. Will recheck in the morning and if patient's hemoglobin is stable it may be determined that it safe to start DVT prophylaxis. (5) Diabetes mellitus type 2 in obese Is this a current diagnosis for this admission?: Yes Plan: She is started on sliding scale short acting insulin. Diabetic diet ordered. (6) Elevated troponin Is this a current diagnosis for this admission?: Yes Plan: Very slight elevation in the setting of COPD exacerbation and sepsis with possible chronic kidney disease. Is currently chest pain-free. Troponins will be trended. (7) GERD (gastroesophageal reflux disease) Qualifiers: Esophagitis presence: esophagitis presence not specified Qualified Code(s) : K21.9 - Gastro-esophageal reflux disease without esophagitis Is this a current diagnosis for this admission?: Yes Plan: We will start PPI. (8) HCAP (healthcare-associated pneumonia) Is this a current diagnosis for this admission?: Yes Plan: Recently discharged from the hospital and completed course of outpatient antibiotics at home. (9) History of lung cancer Is this a current diagnosis for this admission?: Yes Plan: Patient states she had lung cancer with brain metastases. She also tells me that her cancer is resolved, is hard to get a clear story from her. She does still see her oncologist. - Time Time Spent: 50 to 70 Minutes - Inpatient Certification Based on my medical assessment, after consideration of the patient's comorbidities, presenting symptoms, or acuity I expect that the services needed warrant INPATIENT care.: Yes I certify that my determination is in accordance with my understanding of Medicare's requirements for reasonable and necessary INPATIENT services [42 CFR 412.3e].: Yes Medical Necessity: Need for Nebulizer Therapy and Monitoring of Response, Need for IV Antibiotics, Risk of Complication if Not Cared For in Hospital
[2018-03-04] MEDS ORDERED: HEPARIN SOD (PORCINE) 5,000 UNIT/ML 1 ML SYRINGE SUBCUT SCH (06:00)
[2018-03-04] MEDS: LANSOPRAZOLE 30 MG TAB.RAP.DR PO SCH (06:01)
[2018-03-04] MEDS: METHYLPREDNISOLONE INJ 125 MG/2 ML SDV IV SCH ×2 (06:06→14:27)
[2018-03-04] MEDS ORDERED: VANCOMYCIN HCL 0 MG in DEXTROSE 5%-WATER 250 ML IV NR (06:15)
[2018-03-04] MEDS: INSULIN LISPRO 100 UNIT/ML 3 ML VIAL SUBCUT PRN ×3 (07:56→22:10)
[2018-03-04] MEDS ORDERED: RINGERS SOLUTION,LACTATED 1,000 ML IV ONE (08:00)
[2018-03-04] MEDS: IPRATROPIUM/ALBUTEROL 0.5-2.5 MG/3 ML AMPUL NEB SCH ×4 (08:05→19:27)
[2018-03-04 08:39] LABS: CREATINE KINASE MB 1.1 ng/mL (<4.55); TROPONIN I 0.044 ng/mL
[2018-03-04 08:58] LABS: HEMOGLOBIN 8.2 g/dL (12.0-15.5); MEAN CORPUSCULAR HEMOGLOBIN 32.8 pg (27.0-33.4); MEAN CORPUSCULAR HGB CONC 34.3 g/dL (32.0-36.0); MEAN CORPUSCULAR VOLUME 96 fl (80-97); PLATELET COUNT 162 10^3/uL (150-450); RED CELL DISTRIBUTION WIDTH 15.9 % (11.5-14.0); WHITE BLOOD COUNT 8.7 10^3/uL (4.0-10.5)
[2018-03-04 09:15] LABS: ANION GAP 9 (5-19); BLOOD UREA NITROGEN 31 mg/dL (7-20); CALCIUM 8.2 mg/dL (8.4-10.2); CARBON DIOXIDE 30 mmol/L (22-30); CHLORIDE 103 mmol/L (98-107); GLUCOSE 256 mg/dL (75-110); POTASSIUM 3.8 mmol/L (3.6-5.0); SODIUM 142.2 mmol/L (137-145)
[2018-03-04] MEDS: LINEZOLID 600 MG/300 ML RTUPB IV SCH ×2 (09:35→21:54)
--- NOTE | 2018-03-04 09:59 | EKG REPORT ---
SEVERITY:- ABNORMAL ECG - SINUS TACHYCARDIA RIGHT BUNDLE BRANCH BLOCK : Confirmed by: Merecdes Solomon 04-Mar-2018 09:58:48
[2018-03-04] MEDS: NYSTATIN CREAM 15 GM TP SCH ×3 (11:26→17:40)
[2018-03-04] MEDS ORDERED: KETOROLAC TROMETHAMINE INJ/PF 30 MG/1 ML SDV IV ONE (11:28)
[2018-03-04 11:33] LABS: ARTERIAL BLOOD FIO2 2L; ARTERIAL BLOOD H2CO3 1.39 mmol/L (1.05-1.35); ARTERIAL BLOOD HCO3 27.3 mmol/L (20-26); ARTERIAL BLOOD O2 SATURATION 96.8 % (94-98); ARTERIAL BLOOD PCO2 46.2 mmHg (35-45); ARTERIAL BLOOD PH 7.39 (7.35-7.45); ARTERIAL BLOOD PO2 90.7 mmHg (80-100); ARTERIAL BLOOD TOTAL CO2 28.7 mmol/L (21-25)
--- NOTE | 2018-03-04 17:29 | PDOC PROGRESS REPORT ---
Subjective Progress Note for:: 03/04/18 Subjective:: The patient is a 72-year-old female with an extensive medical history including CHF, CAD, [place], HTN, asthma, COPD (home O2 dependent, chronic respiratory failure) , DM 2, hypothyroidism, CKD, GERD, arthritis, dementia, depression, anemia, and lung cancer with brain metastasis who is well-known to the hospitalist service and admitted 03/04/18 for COPD exacerbation, urinary tract infection, and sepsis. The patient was briefly seen on morning rounds. She was found resting in bed comfortably on her baseline oxygen requirement eating her breakfast. The patient endorses dysuria and urinary frequency; states that she completed her entire course of Zyvox after discharge. She denies dyspnea, orthopnea at present but does confirm occasional productive cough. She states that this is no worse than her normal. She has no new questions or concerns today and overall states that she is feeling well. No concerns per nursing. Reason For Visit: UTI WITH SEPSIS, COPD WITH EXACERBATION Physical Exam Vital Signs: Temp Pulse Resp BP Pulse Ox 98.2 F 113 H 18 116/66 100 03/04/18 16:25 03/04/18 16:25 03/04/18 16:25 03/04/18 16:25 03/04/18 16:25 Pulse Oximeter Continuous Start: 03/04/18 03: 25 Freq: RTQ4 Status: Active Document 03/04/18 16:23 TPO (Rec: 03/04/18 16:24 TPO [id number]) Pulse Oximetry Assessment Oxygen Saturation (92-100) 100 Oxygen Flow Rate (L/min) 2 Oxygen Delivery Method Nasal Cannula Fraction of Inspired Oxygen (FIO2) 28 Equipment Usage Equipment in Use Continuous SpO2 Machine # 9 Intake & Output 03/03/18 03/04/18 03/05/18 06:59 06:59 06:59 Intake Total 50 525 Balance 50 525 Weight 79.5 kg General appearance: PRESENT: no acute distress, cooperative, well-developed, well-nourished, other - Overweight Head exam: PRESENT: atraumatic, normocephalic Eye exam: PRESENT: conjunctiva pink, EOMI, PERRLA. ABSENT: scleral icterus Ear exam: PRESENT: normal external ear exam Mouth exam: PRESENT: moist, tongue midline Neck exam: ABSENT: carotid bruit, JVD, lymphadenopathy, thyromegaly Respiratory exam: PRESENT: decreased breath sounds, prolonged expiratory phas, rhonchi - Bibasilar, symmetrical, unlabored, wheezes. ABSENT: rales Cardiovascular exam: PRESENT: RRR. ABSENT: diastolic murmur, rubs, systolic murmur Pulses: PRESENT: normal dorsalis pedis pul Vascular exam: PRESENT: normal capillary refill GI/Abdominal exam: PRESENT: normal bowel sounds, soft. ABSENT: distended, guarding, mass, organolmegaly, rebound, tenderness Rectal exam: PRESENT: deferred Extremities exam: PRESENT: full ROM. ABSENT: calf tenderness, clubbing, pedal edema Neurological exam: PRESENT: alert, awake, oriented to person, oriented to place , oriented to time, oriented to situation, CN II-XII grossly intact. ABSENT: motor sensory deficit Psychiatric exam: PRESENT: appropriate affect, normal mood. ABSENT: homicidal ideation, suicidal ideation Skin exam: PRESENT: dry, intact, warm, other - Erythematous/excoriation 2 skinfold; especially to groin. Numerous toes with ecchymosis and shallow abrasions/lacerations.. ABSENT: cyanosis, rash Results Laboratory Results: 03/04/18 08:38 03/04/18 08:38 03/04/18 03/04/18 03/04/18 05:06 08:38 08:38 WBC 8.7 RBC 2.50 L Hgb 8.2 L Hct 24.0 L MCV 96 MCH 32.8 MCHC 34.3 RDW 15.9 H Plt Count 162 Carbonic Acid HCO3/H2CO3 Ratio ABG pH ABG pCO2 ABG pO2 ABG HCO3 ABG O2 Saturation ABG Base Excess FiO2 Sodium 142.2 Potassium 3.8 Chloride 103 Carbon Dioxide 30 Anion Gap 9 BUN 31 H Creatinine 1.15 Est GFR ( Amer) 56 L Est GFR (Non-Af Amer) 46 L Glucose 256 H Lactic Acid 3.8 H Calcium 8.2 L 03/04/18 11:17 WBC RBC Hgb Hct MCV MCH MCHC RDW Plt Count Carbonic Acid 1.39 H HCO3/H2CO3 Ratio 19:1 ABG pH 7.39 ABG pCO2 46.2 H ABG pO2 90.7 ABG HCO3 27.3 H ABG O2 Saturation 96.8 ABG Base Excess 2.0 FiO2 2L Sodium Potassium Chloride Carbon Dioxide Anion Gap BUN Creatinine Est GFR ( Amer) Est GFR (Non-Af Amer) Glucose Lactic Acid Calcium 03/04/18 03/04/18 03/04/18 07:45 07:45 14:26 Creatine Kinase < 20 L CK-MB (CK-2) 1.10 Troponin I 0.044 0.039 Impressions: Chest X-Ray 03/03/18 23:29 IMPRESSION: No acute cardiopulmonary findings. Stable right perihilar scar. Assessment & Plan - Diagnosis (1) Sepsis Qualifiers: Sepsis type: sepsis due to unspecified organism Qualified Code(s): A41.9 - Sepsis, unspecified organism Is this a current diagnosis for this admission?: Yes Plan: Improved; leukocytosis is resolved, patient remains afebrile, now normotensive. She does remain slightly tachycardic (110) with an elevated lactate. The patient was admitted with sepsis due to UTI versus recurrent pneumonia, present on admission, evidenced by an elevated lactate, hypotension and tachycardia. The patient was provided IV fluids the ER; blood pressure responded appropriately. Blood and urine cultures are pending. We will assess lactic acid with a.m. labs. She has been admitted to [facility] on continuous cardiac telemetry. She received ceftriaxone in the emergency department 1. She is empirically placed on cefepime and Zyvox based on her previous urine culture demonstrating VRE with resistances to vancomycin. (2) Acute and chronic respiratory failure Qualifiers: Respiratory failure complication: hypoxia Qualified Code(s): J96.21 - Acute and chronic respiratory failure with hypoxia Is this a current diagnosis for this admission?: Yes Plan: Improved; secondary to COPD exacerbation and HCAP. Plan as outlined below. (3) CHF (congestive heart failure) Qualifiers: Heart failure type: diastolic Heart failure chronicity: chronic Qualified Code(s): I50.32 - Chronic diastolic (congestive) heart failure Is this a current diagnosis for this admission?: Yes Plan: Diastolic CHF without exacerbation. Serial troponins were indeterminately negative 3; stable, no longer trending. Chest x-ray is clear. Exam is negative for peripheral edema or lung sounds suggestive of fluid volume overload. The patient is on a cardiac diet, will monitor daily weights. The patient's home dose furosemide is resumed at half dose, 20 mg p.o. daily, secondary to recent hypotension in the setting of sepsis. (4) Toe abrasion, non-infected Is this a current diagnosis for this admission?: Yes Plan: The patient is noted to have numerous shallow abrasions and lacerations to toes to bilateral feet with ecchymosis. She tells me that she was having trouble trimming her toenails and so used a pair of pliers. No surrounding edema, erythema, or drainage. Wound care per standard nursing protocols. We will monitor closely for evidence of developing cellulitis. (5) Tinea corporis Is this a current diagnosis for this admission?: Yes Plan: To skinfolds; especially to groin. Meticulous hygiene; careful attention to thorough drying. Nystatin cream. Consider need for Diflucan. (6) COPD (chronic obstructive pulmonary disease) Qualifiers: COPD type: COPD with acute exacerbation Qualified Code(s): J44.1 - Chronic obstructive pulmonary disease with (acute) exacerbation Is this a current diagnosis for this admission?: Yes Plan: ABG today is reassuring; PCO2 is elevated to 46 (improved as compared to her baseline hypercapnia), PO2 90.7 on her baseline oxygen requirement. The patient is placed on scheduled and as needed nebulizer treatments. Her home dose Spiriva is continued. Supplemental oxygen as needed to maintain oxygen saturations greater than 88%; patient utilizes at 2 L/min at home. IV Solu-Medrol 40 mg every 8 hours. Robitussin every 4 hours. Incentive spirometry and flutter valve. (7) UTI (urinary tract infection) Qualifiers: Urinary tract infection type: site unspecified Hematuria presence: without hematuria Qualified Code(s): N39.0 - Urinary tract infection, site not specified Is this a current diagnosis for this admission?: Yes (8) Diabetes mellitus type 2 in obese Is this a current diagnosis for this admission?: Yes Plan: Patient is placed on a consistent carb diet. Accu-Cheks before meals and at bedtime with Humalog for sliding scale coverage. Holding Amaryl and metformin while inpatient. (9) Elevated troponin Is this a current diagnosis for this admission?: Yes Plan: Secondary to acute on chronic respiratory failure. Serial troponins were indeterminately elevated; stable and trending down. Will no longer trend. (10) GERD (gastroesophageal reflux disease) Qualifiers: Esophagitis presence: esophagitis presence not specified Qualified Code(s) : K21.9 - Gastro-esophageal reflux disease without esophagitis Is this a current diagnosis for this admission?: Yes Plan: PPI. (11) HCAP (healthcare-associated pneumonia) Is this a current diagnosis for this admission?: Yes Plan: The patient was recently discharged from our facility with diagnosis of pneumonia. She did complete outpatient course of Zyvox. She presented last night with acute on chronic respiratory failure. Chest x- ray was benign. She is noted to have adventitious lung sounds. She currently denies dyspnea, orthopnea, cough. Blood cultures as above. Sputum culture pending. The patient was empirically placed on IV cefepime and Zyvox based upon previous culture results; will adjust as cultures result. Remaining plan as above. (12) History of lung cancer Is this a current diagnosis for this admission?: No - Time Time Spent with patient: 15-24 minutes Medications reviewed and adjusted accordingly: Yes Anticipated discharge: Home Within: within 72 hours
[2018-03-04] MEDS: CEFEPIME 1 GM/D5W RTU 1 GM/50 ML RTUPB IV SCH (17:32)
[2018-03-04] MEDS: METHYLPREDNISOLONE INJ 40 MG/1 ML SDV IV SCH (21:54)
[2018-03-05] MEDS: IPRATROPIUM/ALBUTEROL 0.5-2.5 MG/3 ML AMPUL NEB SCH ×4 (01:14→20:10)
[2018-03-05] MEDS: CEFEPIME 1 GM/D5W RTU 1 GM/50 ML RTUPB IV SCH ×2 (06:03→18:38)
[2018-03-05] MEDS: LEVOTHYROXINE SODIUM 0.088 MG TABLET PO SCH (06:04)
[2018-03-05] MEDS: METHYLPREDNISOLONE INJ 40 MG/1 ML SDV IV SCH ×2 (06:04→21:46)
[2018-03-05] MEDS: LANSOPRAZOLE 30 MG TAB.RAP.DR PO SCH (06:04)
[2018-03-05 07:16] LABS: HEMATOCRIT 23.4 % (36.0-47.0); MEAN CORPUSCULAR HEMOGLOBIN 32.3 pg (27.0-33.4); MEAN CORPUSCULAR HGB CONC 33.5 g/dL (32.0-36.0); MEAN CORPUSCULAR VOLUME 96 fl (80-97); PLATELET COUNT 182 10^3/uL (150-450); RED BLOOD COUNT 2.43 10^6/uL (3.72-5.28); RED CELL DISTRIBUTION WIDTH 16.2 % (11.5-14.0); WHITE BLOOD COUNT 8.8 10^3/uL (4.0-10.5)
[2018-03-05 07:26] LABS: ANION GAP 7 (5-19); BLOOD UREA NITROGEN 29 mg/dL (7-20); CALCIUM 8.4 mg/dL (8.4-10.2); CARBON DIOXIDE 29 mmol/L (22-30); CHLORIDE 106 mmol/L (98-107); GLUCOSE 137 mg/dL (75-110); POTASSIUM 3.8 mmol/L (3.6-5.0); SODIUM 142.4 mmol/L (137-145)
[2018-03-05 07:41] LABS: HEMOGLOBIN 7.8 g/dL (12.0-15.5)
[2018-03-05] MEDS ORDERED: FUROSEMIDE 40 MG TABLET PO SCH (10:00)
[2018-03-05] MEDS: LISINOPRIL 5 MG TABLET PO SCH (12:41)
[2018-03-05] MEDS: GUAIFENESIN 600 MG TABLET.SA PO SCH ×2 (12:41→21:46)
[2018-03-05] MEDS: TIOTROPIUM BROMIDE DPI 5 CAP/KIT (18 MCG/CAP) IH SCH (12:43)
[2018-03-05] MEDS: LINEZOLID 600 MG/300 ML RTUPB IV SCH ×2 (12:43→21:46)
--- NOTE | 2018-03-05 17:58 | PDOC PROGRESS REPORT ---
Subjective Progress Note for:: 03/05/18 Subjective:: The patient is a 72-year-old female with an extensive medical history including CHF, CAD, [place], HTN, asthma, COPD (home O2 dependent, chronic respiratory failure) , DM 2, hypothyroidism, CKD, GERD, arthritis, dementia, depression, anemia, and lung cancer with brain metastasis who is well-known to the hospitalist service and admitted 03/04/18 for COPD exacerbation, urinary tract infection, and sepsis. The patient was briefly seen on morning rounds. She was found sitting up to the chair on her baseline oxygen requirement. She has no complaints to day; she denies dyspnea, orthopnea at present but does confirm occasional productive cough. She states that this is no worse than her normal. Did receive a call from nursing this afternoon stating that the patient was complaining of pain to her inguinal skin folds. Otherwise, no new concerns. Reason For Visit: UTI WITH SEPSIS, COPD WITH EXACERBATION Physical Exam Vital Signs: Temp Pulse Resp BP Pulse Ox 98.3 F 111 H 18 111/61 100 03/05/18 11:07 03/05/18 14:00 03/05/18 13:58 03/05/18 11:07 03/05/18 16:02 Pulse Oximeter Continuous Start: 03/04/18 03: 25 Freq: RTQ4 Status: Active Document 03/05/18 16:02 [facility] (Rec: 03/05/18 16:02 [facility] [id number]) Pulse Oximetry Assessment Oxygen Saturation (92-100) 100 Oxygen Flow Rate (L/min) 2 Oxygen Delivery Method Nasal Cannula Fraction of Inspired Oxygen (FIO2) 28 Equipment Usage Equipment in Use Continuous SpO2 Machine # 9 Intake & Output 03/04/18 03/05/18 03/06/18 06:59 06:59 06:59 Intake Total 50 2900 237 Balance 50 2900 237 Weight 79.5 kg 87.7 kg General appearance: PRESENT: no acute distress, obese, well-developed, well- nourished Head exam: PRESENT: atraumatic, normocephalic Eye exam: PRESENT: conjunctiva pink, EOMI, PERRLA. ABSENT: scleral icterus Ear exam: PRESENT: normal external ear exam Mouth exam: PRESENT: moist, tongue midline Neck exam: ABSENT: carotid bruit, JVD, lymphadenopathy, thyromegaly Respiratory exam: PRESENT: decreased breath sounds, prolonged expiratory phas, rhonchi, symmetrical, unlabored, other - Supplemental oxygen by nasal cannula. ABSENT: rales, wheezes Cardiovascular exam: PRESENT: RRR. ABSENT: diastolic murmur, rubs, systolic murmur Pulses: PRESENT: normal dorsalis pedis pul Vascular exam: PRESENT: normal capillary refill GI/Abdominal exam: PRESENT: normal bowel sounds, soft. ABSENT: distended, guarding, mass, organolmegaly, rebound, tenderness Rectal exam: PRESENT: deferred Extremities exam: PRESENT: full ROM. ABSENT: calf tenderness, clubbing, pedal edema Neurological exam: PRESENT: alert, awake, oriented to person, oriented to place , oriented to time, oriented to situation, CN II-XII grossly intact. ABSENT: motor sensory deficit Psychiatric exam: PRESENT: appropriate affect, normal mood. ABSENT: homicidal ideation, suicidal ideation Skin exam: PRESENT: dry, erythema, rash, warm. ABSENT: cyanosis Results Laboratory Results: 03/05/18 06:51 03/05/18 06:51 03/04/18 03/05/18 03/05/18 18:30 06:51 06:51 WBC 8.8 RBC 2.43 L Hgb 7.8 L Hct 23.4 L MCV 96 MCH 32.3 MCHC 33.5 RDW 16.2 H Plt Count 182 Sodium 142.4 Potassium 3.8 Chloride 106 Carbon Dioxide 29 Anion Gap 7 BUN 29 H Creatinine 1.03 Est GFR ( Amer) > 60 Est GFR (Non-Af Amer) 52 L Glucose 137 H Lactic Acid 2.0 Calcium 8.4 03/04/18 03/04/18 03/04/18 07:45 07:45 14:26 Creatine Kinase < 20 L CK-MB (CK-2) 1.10 Troponin I 0.044 0.039 Impressions: Chest X-Ray 03/03/18 23:29 IMPRESSION: No acute cardiopulmonary findings. Stable right perihilar scar. Assessment & Plan - Diagnosis (1) Sepsis Qualifiers: Sepsis type: sepsis due to unspecified organism Qualified Code(s): A41.9 - Sepsis, unspecified organism Is this a current diagnosis for this admission?: Yes Plan: Improved; leukocytosis and elevated lactate have resolved, patient remains afebrile, now normotensive. She does remain slightly tachycardic (110) with an elevated lactate. The patient was provided IV fluids the ER; blood pressure responded appropriately. Blood cultures are negative at 24 hours. Urine culture growing gram-positive cocci. Sputum culture pending. She has been admitted to [facility] on continuous cardiac telemetry. She received ceftriaxone in the emergency department 1. She is empirically placed on cefepime and Zyvox based on her previous urine culture demonstrating VRE with resistances to vancomycin. (2) Acute and chronic respiratory failure Qualifiers: Respiratory failure complication: hypoxia Qualified Code(s): J96.21 - Acute and chronic respiratory failure with hypoxia Is this a current diagnosis for this admission?: Yes Plan: Resolved; now at her baseline chronic respiratory failure secondary to COPD exacerbation and HCAP. ABG from yesterday is reassuring. Now on her baseline oxygen requirement. Plan as outlined below. (3) CHF (congestive heart failure) Qualifiers: Heart failure type: diastolic Heart failure chronicity: chronic Qualified Code(s): I50.32 - Chronic diastolic (congestive) heart failure Is this a current diagnosis for this admission?: Yes Plan: Diastolic CHF without exacerbation. Serial troponins were indeterminately negative 3; stable, no longer trending. Chest x-ray is clear. Exam is negative for peripheral edema or lung sounds suggestive of fluid volume overload. The patient is on a cardiac diet, will monitor daily weights. The patient's home dose furosemide is resumed at half dose, 20 mg p.o. daily, secondary to recent hypotension in the setting of sepsis. (4) Toe abrasion, non-infected Is this a current diagnosis for this admission?: Yes Plan: The patient is noted to have numerous shallow abrasions and lacerations to toes to bilateral feet with ecchymosis. She tells me that she was having trouble trimming her toenails and so used a pair of pliers. No surrounding edema, erythema, or drainage. Fortunately, we have podiatry service is available tomorrow. Consult has been ordered to be called tomorrow morning. Wound care per standard nursing protocols. We will monitor closely for evidence of developing cellulitis. (5) Tinea corporis Is this a current diagnosis for this admission?: Yes Plan: To skinfolds; especially to groin. Meticulous hygiene; careful attention to thorough drying. Nystatin cream. Will add Diflucan. (6) COPD (chronic obstructive pulmonary disease) Qualifiers: COPD type: COPD with acute exacerbation Qualified Code(s): J44.1 - Chronic obstructive pulmonary disease with (acute) exacerbation Is this a current diagnosis for this admission?: Yes Plan: ABG today is reassuring; PCO2 is elevated to 46 (improved as compared to her baseline hypercapnia), PO2 90.7 on her baseline oxygen requirement. The patient is placed on scheduled and as needed nebulizer treatments. Her home dose Spiriva is continued. Supplemental oxygen as needed to maintain oxygen saturations greater than 88%; patient utilizes at 2 L/min at home. IV Solu-Medrol 40 mg every 8 hours. Mucinex BID. Will add Daliresp. Incentive spirometry and flutter valve. (7) UTI (urinary tract infection) Qualifiers: Urinary tract infection type: site unspecified Hematuria presence: without hematuria Qualified Code(s): N39.0 - Urinary tract infection, site not specified Is this a current diagnosis for this admission?: Yes Plan: Urinalysis is suggestive of UTI. Urine culture is growing gram-positive cocci. She is empirically been placed on cefepime and Zyvox based upon previous urine culture results. Currently day #2 of antibiotic's. (8) Diabetes mellitus type 2 in obese Is this a current diagnosis for this admission?: Yes Plan: Patient is placed on a consistent carb diet. Accu-Cheks before meals and at bedtime with Humalog for sliding scale coverage. Holding Amaryl and metformin while inpatient. (9) Elevated troponin Is this a current diagnosis for this admission?: Yes Plan: Secondary to acute on chronic respiratory failure. Serial troponins were indeterminately elevated; stable and trending down. Will no longer trend. (10) GERD (gastroesophageal reflux disease) Qualifiers: Esophagitis presence: esophagitis presence not specified Qualified Code(s) : K21.9 - Gastro-esophageal reflux disease without esophagitis Is this a current diagnosis for this admission?: Yes Plan: PPI. (11) HCAP (healthcare-associated pneumonia) Is this a current diagnosis for this admission?: Yes Plan: The patient was recently discharged from our facility with diagnosis of pneumonia. She did complete outpatient course of Zyvox. She presented last night with acute on chronic respiratory failure. Chest x- ray was benign. She is noted to have adventitious lung sounds. She currently denies dyspnea, orthopnea, cough. Blood cultures as above. Sputum culture pending. The patient was empirically placed on IV cefepime and Zyvox based upon previous culture results; will adjust as cultures result. Remaining plan as above. (12) History of lung cancer Is this a current diagnosis for this admission?: No (13) Anemia Qualifiers: Anemia type: unspecified type Qualified Code(s): D64.9 - Anemia, unspecified Is this a current diagnosis for this admission?: Yes Plan: The patient appears to have chronic anemia with a baseline near 10. Upon admission her hemoglobin was noted to be 8.2 and has trended downward slightly to 7.8. Will check occult stool. - Time Time Spent with patient: 15-24 minutes Medications reviewed and adjusted accordingly: Yes Anticipated discharge: Home Within: within 48 hours - Plan Summary Plan Summary: The patient's sepsis has resolved. Urine culture is growing gram-positive cocci , blood cultures are negative at 24 hours. May consider early de-escalation of antibiotics when blood cultures are negative at 72 hours; consider the urine culture is reflective of colonization and not acute infection. Anticipate the patient will be ready for discharge within the next 24-48 hours.
[2018-03-05] MEDS: NYSTATIN CREAM 15 GM TP SCH ×2 (18:02→18:39)
[2018-03-05] MEDS: HYDROCODONE/ACETAMINOPHEN 5-325 MG TABLET PO PRN (21:46)
[2018-03-05] MEDS ORDERED: BUDESONIDE/FORMOTEROL 160-4.5 MCG 60 PUFF/6 GM MDI IH SCH (22:00)
[2018-03-06] MEDS: INSULIN LISPRO 100 UNIT/ML 3 ML VIAL SUBCUT PRN ×3 (00:02→23:59)
[2018-03-06] MEDS: LEVALBUTEROL HCL NEB 0.63 MG/3 ML AMPUL NEB PRN (00:38)
[2018-03-06] MEDS: IPRATROPIUM/ALBUTEROL 0.5-2.5 MG/3 ML AMPUL NEB SCH ×4 (02:38→19:42)
[2018-03-06] MEDS: CEFEPIME 1 GM/D5W RTU 1 GM/50 ML RTUPB IV SCH ×2 (05:23→17:44)
[2018-03-06] MEDS: LANSOPRAZOLE 30 MG TAB.RAP.DR PO SCH (05:23)
[2018-03-06] MEDS: LEVOTHYROXINE SODIUM 0.088 MG TABLET PO SCH (05:23)
[2018-03-06 06:38] LABS: HEMATOCRIT 24.1 % (36.0-47.0); HEMOGLOBIN 8.2 g/dL (12.0-15.5); MEAN CORPUSCULAR HEMOGLOBIN 32.7 pg (27.0-33.4); MEAN CORPUSCULAR HGB CONC 34.1 g/dL (32.0-36.0); MEAN CORPUSCULAR VOLUME 96 fl (80-97); PLATELET COUNT 204 10^3/uL (150-450); RED BLOOD COUNT 2.52 10^6/uL (3.72-5.28); RED CELL DISTRIBUTION WIDTH 15.9 % (11.5-14.0); WHITE BLOOD COUNT 6.8 10^3/uL (4.0-10.5)
[2018-03-06 07:03] LABS: ANION GAP 9 (5-19); BLOOD UREA NITROGEN 36 mg/dL (7-20); CALCIUM 8.4 mg/dL (8.4-10.2); CARBON DIOXIDE 29 mmol/L (22-30); CHLORIDE 106 mmol/L (98-107); GLUCOSE 178 mg/dL (75-110); POTASSIUM 4.1 mmol/L (3.6-5.0); SODIUM 143.8 mmol/L (137-145)
[2018-03-06] MEDS: LINEZOLID 600 MG/300 ML RTUPB IV SCH ×2 (09:32→23:48)
[2018-03-06] MEDS: LISINOPRIL 5 MG TABLET PO SCH (09:33)
[2018-03-06] MEDS: GUAIFENESIN 600 MG TABLET.SA PO SCH ×2 (09:33→23:49)
[2018-03-06] MEDS: FLUCONAZOLE 100 MG TABLET PO SCH (09:33)
[2018-03-06] MEDS: ROFLUMILAST 500 MCG TABLET PO SCH (09:34)
[2018-03-06] MEDS: FUROSEMIDE 20 MG TABLET PO SCH (09:34)
[2018-03-06] MEDS: NYSTATIN CREAM 15 GM TP SCH ×2 (09:47→17:46)
[2018-03-06] MEDS: TIOTROPIUM BROMIDE DPI 5 CAP/KIT (18 MCG/CAP) IH SCH (09:49)
[2018-03-06] MEDS: METHYLPREDNISOLONE INJ 40 MG/1 ML SDV IV SCH ×2 (09:49→23:48)
--- NOTE | 2018-03-06 18:25 | PDOC PROGRESS REPORT ---
Subjective Progress Note for:: 03/06/18 Subjective:: The patient is a 72-year-old female with an extensive medical history including CHF, CAD, OR, HTN, asthma, COPD (home O2 dependent, chronic respiratory failure) , DM 2, hypothyroidism, CKD, GERD, arthritis, dementia, depression, anemia, and lung cancer with brain metastasis who is well-known to the hospitalist service and admitted 03/04/18 for COPD exacerbation, urinary tract infection, and sepsis. The patient was seen this afternoon on rounds, she is resting comfortably in bed on room air. The patient herself has no complaints, she denies chest pain, shortness of breath fever chills. Upon assessment, wheezing can be heard in all lung curtis, no evidence of rhonchi, respirations are nonlabored, equal and symmetrical. Nursing staff reports concerns regarding excoriation and skin breakdown in the perineal area. The patient reportedly lives at home with her son and son's girlfriend. The patient reports that they are her primary caregivers. When asked how the patient goes to the bathroom, the patient states she normally urinates or defecates on herself and she is typically able to clean herself up "twice a day." I am greatly concerned about these new findings. The overall poor hygiene and lack of care the patient received at home is likely what resulted in her skin breakdown and could have contributed to her UTI. Discharge planning was made aware of these new findings. Reason For Visit: UTI WITH SEPSIS, COPD WITH EXACERBATION Physical Exam Vital Signs: Temp Pulse Resp BP Pulse Ox 98.5 F 105 H 18 137/58 H 98 03/06/18 15:08 03/06/18 15:08 03/06/18 15:08 03/06/18 15:08 03/06/18 16:23 Pulse Oximeter Continuous Start: 03/04/18 03: 25 Freq: RTQ4 Status: Active Document 03/06/18 16:23 [facility] (Rec: 03/06/18 17:44 [facility] [id number]) Pulse Oximetry Assessment Oxygen Saturation (92-100) 98 Oxygen Flow Rate (L/min) 2 Oxygen Delivery Method Nasal Cannula Fraction of Inspired Oxygen (FIO2) 28 Equipment Usage Equipment in Use Continuous SpO2 Machine # [id number] Intake & Output 03/05/18 03/06/18 03/07/18 06:59 06:59 06:59 Intake Total 2900 1137 887 Balance 2900 1137 887 Weight 87.7 kg 87.7 kg General appearance: PRESENT: no acute distress, obese Eye exam: PRESENT: conjunctiva pink, PERRLA Mouth exam: PRESENT: moist Neck exam: PRESENT: full ROM Respiratory exam: PRESENT: rhonchi, tachypnea, wheezes Cardiovascular exam: PRESENT: +S1, +S2 Pulses: PRESENT: normal radial pulses, normal dorsalis pedis pul GI/Abdominal exam: PRESENT: normal bowel sounds, soft. ABSENT: tenderness Rectal exam: PRESENT: deferred Gentrourinary exam: PRESENT: erythema, other - skin excoriation on labia majora , mons pubis, and perineal area. Extremities exam: PRESENT: full ROM. ABSENT: pedal edema Musculoskeletal exam: PRESENT: full ROM. ABSENT: ambulatory Neurological exam: PRESENT: alert, awake, oriented to person, oriented to place. ABSENT: oriented to time, oriented to situation Skin exam: PRESENT: dry, intact, normal color, warm Results Laboratory Results: 03/06/18 05:58 03/06/18 05:58 03/06/18 03/06/18 05:58 05:58 WBC 6.8 RBC 2.52 L Hgb 8.2 L Hct 24.1 L MCV 96 MCH 32.7 MCHC 34.1 RDW 15.9 H Plt Count 204 Sodium 143.8 Potassium 4.1 Chloride 106 Carbon Dioxide 29 Anion Gap 9 BUN 36 H Creatinine 1.09 Est GFR ( Amer) 59 L Est GFR (Non-Af Amer) 49 L Glucose 178 H Calcium 8.4 03/04/18 03/04/18 03/04/18 07:45 07:45 14:26 Creatine Kinase < 20 L CK-MB (CK-2) 1.10 Troponin I 0.044 0.039 Impressions: Chest X-Ray 03/03/18 23:29 IMPRESSION: No acute cardiopulmonary findings. Stable right perihilar scar. Status: Imported from PACS Assessment & Plan - Diagnosis (1) Sepsis Qualifiers: Sepsis type: sepsis due to unspecified organism Qualified Code(s): A41.9 - Sepsis, unspecified organism Is this a current diagnosis for this admission?: Yes Plan: Improved; leukocytosis and elevated lactate have resolved, patient remains afebrile, now normotensive. Blood cultures are negative Urine culture growing ENTEROCOCCUS FAECALIS Sputum culture +GNR She has been admitted to [facility] on continuous cardiac telemetry. She received ceftriaxone in the emergency department 1. She is empirically placed on cefepime and Zyvox based on her previous urine culture demonstrating VRE with resistances to vancomycin. (2) Acute and chronic respiratory failure Qualifiers: Respiratory failure complication: hypoxia Qualified Code(s): J96.21 - Acute and chronic respiratory failure with hypoxia Is this a current diagnosis for this admission?: Yes Plan: Resolved; now at her baseline chronic respiratory failure secondary to COPD exacerbation and HCAP. Now on her baseline oxygen requirement. Plan as outlined below. (3) COPD (chronic obstructive pulmonary disease) Qualifiers: COPD type: COPD with acute exacerbation Qualified Code(s): J44.1 - Chronic obstructive pulmonary disease with (acute) exacerbation Is this a current diagnosis for this admission?: Yes Plan: The patient is placed on scheduled and as needed nebulizer treatments. Her home dose Spiriva is continued. Supplemental oxygen as needed to maintain oxygen saturations greater than 88%; patient utilizes at 2 L/min at home. IV Solu-Medrol 40 mg every 8 hours. Mucinex BID. Daliresp. Incentive spirometry and flutter valve. (4) Tinea corporis Is this a current diagnosis for this admission?: Yes Plan: To skinfolds; especially to groin. Meticulous hygiene; careful attention to thorough drying. Nystatin cream. Continue Diflucan. (5) Toe abrasion, non-infected Is this a current diagnosis for this admission?: Yes Plan: The patient is noted to have numerous shallow abrasions and lacerations to toes to bilateral feet with ecchymosis. She tells me that she was having trouble trimming her toenails and so used a pair of pliers. No surrounding edema, erythema, or drainage. Fortunately, we have podiatry service is available tomorrow. Consult has been ordered to be called tomorrow morning. Wound care per standard nursing protocols. We will monitor closely for evidence of developing cellulitis. (6) UTI (urinary tract infection) Qualifiers: Urinary tract infection type: site unspecified Hematuria presence: without hematuria Qualified Code(s): N39.0 - Urinary tract infection, site not specified Is this a current diagnosis for this admission?: Yes (7) CHF (congestive heart failure) Qualifiers: Heart failure type: diastolic Heart failure chronicity: chronic Qualified Code(s): I50.32 - Chronic diastolic (congestive) heart failure Is this a current diagnosis for this admission?: Yes Plan: Diastolic CHF without exacerbation. Serial troponins were indeterminately negative 3; stable, no longer trending. Chest x-ray is clear. Exam is negative for peripheral edema or lung sounds suggestive of fluid volume overload. The patient is on a cardiac diet, will monitor daily weights. The patient's home dose furosemide is resumed at half dose, 20 mg p.o. daily, secondary to recent hypotension in the setting of sepsis. (8) Anemia Qualifiers: Anemia type: unspecified type Qualified Code(s): D64.9 - Anemia, unspecified Is this a current diagnosis for this admission?: Yes Plan: The patient appears to have chronic anemia with a baseline near 10. Upon admission her hemoglobin was noted to be 8.2 and has trended downward slightly to 7.8, now back to 8.2 No signs of acute blood loss Will check occult stool. (9) Diabetes Qualifiers: Diabetes mellitus type: type 2 Is this a current diagnosis for this admission?: Yes Plan: Patient is placed on a consistent carb diet. Accu-Cheks before meals and at bedtime with Humalog for sliding scale coverage. Holding Amaryl and metformin while inpatient. (10) Lung cancer metastatic to brain Is this a current diagnosis for this admission?: No Plan: History of lung cancer. Currently not undergoing treatment (11) HCAP (healthcare-associated pneumonia) Is this a current diagnosis for this admission?: Yes Plan: The patient was recently discharged from our facility with diagnosis of pneumonia. She did complete outpatient course of Zyvox. She presented last night with acute on chronic respiratory failure. Chest x- ray was benign. She is noted to have adventitious lung sounds. She currently denies dyspnea, orthopnea, cough. Blood cultures as above. Sputum culture pending. The patient was empirically placed on IV cefepime and Zyvox based upon previous culture results; will adjust as cultures result. Remaining plan as above. - Time Time Spent with patient: 15-24 minutes Medications reviewed and adjusted accordingly: Yes - Inpatient Certification Based on my medical assessment, after consideration of the patient's comorbidities, presenting symptoms, or acuity I expect that the services needed warrant INPATIENT care.: Yes I certify that my determination is in accordance with my understanding of Medicare's requirements for reasonable and necessary INPATIENT services [42 CFR 412.3e].: Yes Medical Necessity: Need for IV Antibiotics, Risk of Complication if Not Cared For in Hospital - Plan Summary Plan Summary: CONSULT DISCHARGE PLANNING ABOUT POSSIBLE APS INVESTIGATION REGARDING ELDER NEGLECT. CONTINUE IV ABX. CONTINUE IV STEROIDS AND NEBULIZERS
[2018-03-07] MEDS: IPRATROPIUM/ALBUTEROL 0.5-2.5 MG/3 ML AMPUL NEB SCH ×4 (02:24→19:41)
[2018-03-07] MEDS: HYDROCODONE/ACETAMINOPHEN 5-325 MG TABLET PO PRN ×2 (03:53→22:27)
[2018-03-07] MEDS: LEVOTHYROXINE SODIUM 0.088 MG TABLET PO SCH (05:58)
[2018-03-07] MEDS: CEFEPIME 1 GM/D5W RTU 1 GM/50 ML RTUPB IV SCH ×2 (05:58→18:46)
[2018-03-07] MEDS: LANSOPRAZOLE 30 MG TAB.RAP.DR PO SCH (05:58)
[2018-03-07 06:31] LABS: HEMOGLOBIN 8.7 g/dL (12.0-15.5); MEAN CORPUSCULAR HEMOGLOBIN 32.2 pg (27.0-33.4); MEAN CORPUSCULAR HGB CONC 33.6 g/dL (32.0-36.0); MEAN CORPUSCULAR VOLUME 96 fl (80-97); PLATELET COUNT 221 10^3/uL (150-450); RED BLOOD COUNT 2.71 10^6/uL (3.72-5.28); RED CELL DISTRIBUTION WIDTH 16.1 % (11.5-14.0); WHITE BLOOD COUNT 6.5 10^3/uL (4.0-10.5)
[2018-03-07 06:54] LABS: ANION GAP 9 (5-19); BLOOD UREA NITROGEN 30 mg/dL (7-20); CALCIUM 8.8 mg/dL (8.4-10.2); CARBON DIOXIDE 29 mmol/L (22-30); CHLORIDE 104 mmol/L (98-107); GLUCOSE 169 mg/dL (75-110); POTASSIUM 4.3 mmol/L (3.6-5.0); SODIUM 142.2 mmol/L (137-145)
[2018-03-07] MEDS: NYSTATIN CREAM 15 GM TP SCH (11:37)
[2018-03-07] MEDS: FLUCONAZOLE 100 MG TABLET PO SCH (11:37)
[2018-03-07] MEDS: TIOTROPIUM BROMIDE DPI 5 CAP/KIT (18 MCG/CAP) IH SCH (11:38)
[2018-03-07] MEDS: LINEZOLID 600 MG/300 ML RTUPB IV SCH ×2 (11:38→22:26)
[2018-03-07] MEDS: FUROSEMIDE 20 MG TABLET PO SCH (11:38)
[2018-03-07] MEDS: GUAIFENESIN 600 MG TABLET.SA PO SCH ×2 (11:38→22:27)
[2018-03-07] MEDS: LISINOPRIL 5 MG TABLET PO SCH (11:38)
[2018-03-07] MEDS: METHYLPREDNISOLONE INJ 40 MG/1 ML SDV IV SCH ×2 (11:38→22:29)
[2018-03-07] MEDS: ROFLUMILAST 500 MCG TABLET PO SCH (11:39)
--- NOTE | 2018-03-07 12:43 | PDOC CONSULTATION ---
History of Present Illness Admission Date/PCP: 03/04/18 02:59 ARASELI AGUILAR MD Patient complains of: being unable to cut her toenails History of Present Illness: TRENTON MCCOY is a 72 year old female Past Medical History Cardiac Medical History: Reports: Congestive Heart Failure, Coronary Artery Disease, Myocardial Infarction, Hypertension Denies: DVT, Hyperlipidema, Pulmonary Embolism Pulmonary Medical History: Reports: Asthma, Bronchitis, Chronic Obstructive Pulmonary Disease (COPD) - 2 L nasal home oxygen, Pneumonia, Respiratory Failure - Chronic respiratory failure Denies: Sleep Apnea, Tuberculosis EENT Medical History: Denies: Eyes Neurological Medical History: Denies: Seizures Endocrine Medical History: Reports: Diabetes Mellitus Type 2, Hypothyroidism Denies: Diabetes Mellitus Type 1, Hyperthyroidism Renal/ Medical History: Reports: Chronic Kidney Disease Denies: End Stage Renal Disease Malignancy Medical History: Reports: Brain Cancer - Lung cancer with brain metastases, 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 GI Medical History: Reports: Gastroesophageal Reflux Disease Denies: Cirrhosis, Hepatitis Musculoskeltal Medical History: Reports: Arthritis Psychiatric Medical History: Reports: Dementia, Depression Denies: Bipolar Disorder Hematology: Reports: Anemia, Bleeding Tendencies Infectious Medical History: Reports: Clostridium Difficile Past Surgical History Past Surgical History: Reports: Cholecystectomy, Orthopedic Surgery - Foot surgery, Other - cataract bilateral Social History Lives with: Other - she has a trailer home and 5 people live with her Smoking Status: Current Every Day Smoker Frequency of Alcohol Use: None Hx Recreational Drug Use: No Drugs: None Hx Prescription Drug Abuse: No - Advance Directive Resuscitation Status: Full Code Family History Family History: COPD, Malignancy - Lung cancer Parental Family History Reviewed: Yes Children Family History Reviewed: Yes Sibling(s) Family History Reviewed.: Yes Medication/Allergy Home Medications: Albuterol Sulfate [Proair HFA Inhalation Aerosol 8.5 gm MDI] 2 puff IH Q6HP PRN 03/04/18 Furosemide [Lasix 40 mg Tablet] 40 mg PO DAILY 03/04/18 Glimepiride [Amaryl 1 mg Tablet] 1 mg PO DAILY 03/04/18 Hydrocodone Bit/Acetaminophen [Hydrocodon-Acetaminophen 5-325] 1 tab PO Q8HP PRN 03/04/18 Ipratropium/Albuterol Sulfate [Iprat-Albut 0.5-3(2.5) mg/3 ml] 3 ml NEB Q6 03/04 Lactulose [Enulose 10 gm/15 mL Oral Solution] 30 ml PO DAILY 03/04/18 Levalbuterol HCl [Xopenex Neb 1.25 mg/3 ml Ampul] 1.25 mg NEB Q4HP PRN 03/04/18 Levothyroxine Sodium [Synthroid 0.088 mg Tablet] 0.088 mg PO Q6AM 03/04/18 Lisinopril [Prinivil 5 mg Tablet] 5 mg PO DAILY 03/04/18 Metformin HCl [Metformin HCl ER] 500 mg PO BID 03/04/18 Pantoprazole Sodium [Protonix] 40 mg PO DAILY 03/04/18 Sertraline HCl [Zoloft 50 mg Tablet] 50 mg PO DAILY 03/04/18 Tiotropium [place] [Spiriva Handihaler 5 Cap/Kit (18 Mcg/Cap)] 1 puff IH DAILY 03/04/18 Tramadol HCl [Ultram 50 mg Tablet] 50 mg PO Q12HP PRN 03/04/18 Allergies/Adverse Reactions: azithromycin Allergy (Verified 02/13/18 19:28) amoxicillin [Amoxicillin] Adverse Reaction (Verified 02/13/18 19:28) visual hallucinations erythromycin base [Erythromycin Base] Adverse Reaction (Verified 02/13/18 19:28) visual hallucinations Potassium Clavulanate * [From Augmentin] Adverse Reaction (Verified 02/13/18 19: 28) visual hallucinations Physical Exam Vital Signs: Temp Pulse Resp BP Pulse Ox 98.2 F 100 18 114/65 100 03/07/18 07:18 03/07/18 08:49 03/07/18 08:49 03/07/18 07:18 03/07/18 12:07 Pulse Oximeter Continuous Start: 03/04/18 03: 25 Freq: RTQ4 Status: Active Document 03/07/18 12:07 TPO (Rec: 03/07/18 12:07 TPO [id number]) Pulse Oximetry Assessment Oxygen Saturation (92-100) 100 Oxygen Flow Rate (L/min) 2 Oxygen Delivery Method Nasal Cannula Fraction of Inspired Oxygen (FIO2) 28 Equipment Usage Equipment in Use Continuous SpO2 Machine # 9 Intake & Output 03/06/18 03/07/18 03/08/18 06:59 06:59 06:59 Intake Total 1137 1287 Balance 1137 1287 Weight 87.7 kg 87.7 kg General appearance: PRESENT: cooperative, well-developed, well-nourished Pulses: PRESENT: +1 pedal pulses bilateral - dorsalis pedis and posterior tibial pulses Vascular exam: PRESENT: normal capillary refill Extremities exam: PRESENT: +2 edema Skin exam: PRESENT: other - Contusion distal aspect left hallux with no damage to the nail. Bilateral hallux nails are covered with nail dominican and could not be evaluated for onychomycosis. Dried blood is present along the dorsomedial aspect of the 5th digit right foot. Results Laboratory Results: 03/07/18 05:51 03/07/18 05:51 03/07/18 03/07/18 05:51 05:51 WBC 6.5 RBC 2.71 L Hgb 8.7 L Hct 26.0 L MCV 96 MCH 32.2 MCHC 33.6 RDW 16.1 H Plt Count 221 Sodium 142.2 Potassium 4.3 Chloride 104 Carbon Dioxide 29 Anion Gap 9 BUN 30 H Creatinine 1.06 Est GFR ( Amer) > 60 Est GFR (Non-Af Amer) 51 L Glucose 169 H Calcium 8.8 03/04/18 03/04/18 03/04/18 07:45 07:45 14:26 Creatine Kinase < 20 L CK-MB (CK-2) 1.10 Troponin I 0.044 0.039 Impressions: Chest X-Ray 03/03/18 23:29 IMPRESSION: No acute cardiopulmonary findings. Stable right perihilar scar. Assessment & Plan - Diagnosis (2) Contusion of great toe of left foot Qualifiers: Encounter type: initial encounter Damage to nail status: without damage Qualified Code(s): S90.112A - Contusion of left great toe without damage to nail , initial encounter Is this a current diagnosis for this admission?: Yes Plan: Monitor the site for any infection. Nails 1-5 both feet were trimmed.
--- NOTE | 2018-03-07 13:38 | Progress Note ---
Provider Note Provider Note: ID Consult Note Asked to review patient's chart by Pharmacy. Pt not seen or examined. Pt is a 72 YO woman with PMH including COPD with chronic respiratory failure on home O2 , lung cancer with brain metastases, DM, CKD, GERD, and dementia. She was recently admitted to [place] from 02/13/18-02/24/18 with c/o SOB progressive with greenish sputum, wheezing and hypoxia and was treated for COPD exacerbation, during which time she received a 10 day course of Levaquin. She had VRE in a urine culture and was given Zyvox to complete at home. She returned with diffuse wheezing and was admitted on 03/04/18 for COPD exacerbation. She has no fever. CXR showed no acute change. BCx have no growth x 3 days. Sputum cx was sent and is in process, preliminarily reported as showing growth of GNRs. Pt empirically is on cefepime and linezolid since admission. Linezolid was prescribed for UTI. Pt has dysuria reported but also significant exocriation and erythema in b/l groin and labia suspicious for dermatophyte infection. She had no abdominal pain or tenderness documented. UCx grew >100k cfu Enterococcus faecalis sensitive to ampicillin, daptomycin, nitrofurantoin, penicillin and vancomycin. Pt may have burning sensation with urination with contact of urine on excoriation and denuded skin of patient's genitalia rather than true UTI. Enterococcus is a common urinary colonizer and could potentially also represent asymptomatic bacteriuria if she does not also have other suggestive features such as suprapubic tenderness or urgency. Consider discontinuing linezolid if this is the case and continue to manage the dermatophyte infection. Bassam Garcia MD [facility], pager [phone]
--- NOTE | 2018-03-07 15:44 | PDOC PROGRESS REPORT ---
Subjective Progress Note for:: 03/07/18 Subjective:: The patient is a 72-year-old female with an extensive medical history including CHF, CAD, [place], HTN, asthma, COPD (home O2 dependent, chronic respiratory failure) , DM 2, hypothyroidism, CKD, GERD, arthritis, dementia, depression, anemia, and lung cancer with brain metastasis who is well-known to the hospitalist service and admitted 03/04/18 for COPD exacerbation, urinary tract infection, and sepsis. The patient was seen this afternoon on rounds, she is resting comfortably in bedside recliner on supplemental oxygen. The patient herself has no complaints , she denies chest pain, shortness of breath fever chills. Upon assessment, mild wheezing can be heard in RLL, no evidence of rhonchi, respirations are nonlabored, equal and symmetrical. When talking to the patient today about her living situation, the patient states that she lives at home with her daughter and son-in-law. Of note, this is different than what the patient told me yesterday. While it does not change her overall discharge plan, it does lend to her (lack of) capacity. Discharge planning was made aware of the patient's home living situation yesterday. Reason For Visit: UTI WITH SEPSIS, COPD WITH EXACERBATION Physical Exam Vital Signs: Temp Pulse Resp BP Pulse Ox 98.3 F 86 16 130/88 H 100 03/07/18 11:33 03/07/18 13:46 03/07/18 13:46 03/07/18 13:26 03/07/18 13:46 Pulse Oximeter Continuous Start: 03/04/18 03: 25 Freq: RTQ4 Status: Active Document 03/07/18 12:07 [facility] (Rec: 03/07/18 12:07 [facility] [id number]) Pulse Oximetry Assessment Oxygen Saturation (92-100) 100 Oxygen Flow Rate (L/min) 2 Oxygen Delivery Method Nasal Cannula Fraction of Inspired Oxygen (FIO2) 28 Equipment Usage Equipment in Use Continuous SpO2 Machine # 9 Intake & Output 03/06/18 03/07/18 03/08/18 06:59 06:59 06:59 Intake Total 1137 1287 236 Balance 1137 1287 236 Weight 87.7 kg 87.7 kg General appearance: PRESENT: no acute distress, well-developed, well-nourished Eye exam: PRESENT: conjunctiva pink, PERRLA Mouth exam: PRESENT: moist Respiratory exam: PRESENT: symmetrical, unlabored, wheezes Cardiovascular exam: PRESENT: +S1, +S2 Pulses: PRESENT: normal radial pulses, normal dorsalis pedis pul Vascular exam: PRESENT: normal capillary refill GI/Abdominal exam: PRESENT: normal bowel sounds, soft. ABSENT: tenderness Rectal exam: PRESENT: deferred Extremities exam: PRESENT: full ROM Musculoskeletal exam: PRESENT: ambulatory - with assitance. normally uses seated rolling walker, full ROM Neurological exam: PRESENT: alert, awake, oriented to person, oriented to place. ABSENT: oriented to time, oriented to situation, normal gait Psychiatric exam: PRESENT: appropriate affect Skin exam: PRESENT: dry, intact, normal color, warm Results Laboratory Results: 03/07/18 05:51 03/07/18 05:51 03/07/18 03/07/18 05:51 05:51 WBC 6.5 RBC 2.71 L Hgb 8.7 L Hct 26.0 L MCV 96 MCH 32.2 MCHC 33.6 RDW 16.1 H Plt Count 221 Sodium 142.2 Potassium 4.3 Chloride 104 Carbon Dioxide 29 Anion Gap 9 BUN 30 H Creatinine 1.06 Est GFR ( Amer) > 60 Est GFR (Non-Af Amer) 51 L Glucose 169 H Calcium 8.8 03/04/18 03/04/18 03/04/18 07:45 07:45 14:26 Creatine Kinase < 20 L CK-MB (CK-2) 1.10 Troponin I 0.044 0.039 Impressions: Chest X-Ray 03/03/18 23:29 IMPRESSION: No acute cardiopulmonary findings. Stable right perihilar scar. Status: Imported from PACS Assessment & Plan - Diagnosis (1) Sepsis Qualifiers: Sepsis type: sepsis due to unspecified organism Qualified Code(s): A41.9 - Sepsis, unspecified organism Is this a current diagnosis for this admission?: Yes Plan: Improved; leukocytosis and elevated lactate have resolved, patient remains afebrile, now normotensive. Blood cultures are negative Urine culture growing ENTEROCOCCUS FAECALIS Sputum culture +GNR She has been admitted to [facility] on continuous cardiac telemetry. She received ceftriaxone in the emergency department 1. She is empirically placed on cefepime and Zyvox based on her previous urine culture demonstrating VRE with resistances to vancomycin. (2) Acute and chronic respiratory failure Qualifiers: Respiratory failure complication: hypoxia Qualified Code(s): J96.21 - Acute and chronic respiratory failure with hypoxia Is this a current diagnosis for this admission?: Yes Plan: Resolved; now at her baseline chronic respiratory failure secondary to COPD exacerbation and HCAP. Now on her baseline oxygen requirement. Plan as outlined below. (3) COPD (chronic obstructive pulmonary disease) Qualifiers: COPD type: COPD with acute exacerbation Qualified Code(s): J44.1 - Chronic obstructive pulmonary disease with (acute) exacerbation Is this a current diagnosis for this admission?: Yes Plan: The patient is placed on scheduled and as needed nebulizer treatments. Her home dose Spiriva is continued. Supplemental oxygen as needed to maintain oxygen saturations greater than 88%; patient utilizes at 2 L/min at home. IV Solu-Medrol 40 mg every 8 hours. Mucinex BID. Daliresp. Incentive spirometry and flutter valve. (4) Tinea corporis Is this a current diagnosis for this admission?: Yes Plan: To skinfolds; especially to groin. Meticulous hygiene; careful attention to thorough drying. Nystatin cream with topical steroid Continue Diflucan. (5) Toe abrasion, non-infected Is this a current diagnosis for this admission?: Yes Plan: The patient is noted to have numerous shallow abrasions and lacerations to toes to bilateral feet with ecchymosis. She tells me that she was having trouble trimming her toenails and so used a pair of pliers. No surrounding edema, erythema, or drainage. Wound care per standard nursing protocols. We will monitor closely for evidence of developing cellulitis. (6) UTI (urinary tract infection) Qualifiers: Urinary tract infection type: site unspecified Hematuria presence: without hematuria Qualified Code(s): N39.0 - Urinary tract infection, site not specified Is this a current diagnosis for this admission?: Yes Plan: UA indicative of UTI: large Leuk Esterase, >182 WBC Cefepime and Zyvox for UTI Antibiotic therapy chosen based on previous cultures If patient does not show signs of dysuria, consider discontinuing antibiotics Appreciate ID recommendations by Dr. Garcia (7) CHF (congestive heart failure) Qualifiers: Heart failure type: diastolic Heart failure chronicity: chronic Qualified Code(s): I50.32 - Chronic diastolic (congestive) heart failure Is this a current diagnosis for this admission?: Yes Plan: Diastolic CHF without exacerbation. Serial troponins were indeterminately negative 3; stable, no longer trending. Chest x-ray is clear. Exam is negative for peripheral edema or lung sounds suggestive of fluid volume overload. The patient is on a cardiac diet, will monitor daily weights. The patient's home dose furosemide is resumed at half dose, 20 mg p.o. daily, secondary to recent hypotension in the setting of sepsis. (8) Anemia Qualifiers: Anemia type: unspecified type Qualified Code(s): D64.9 - Anemia, unspecified Is this a current diagnosis for this admission?: Yes Plan: The patient appears to have chronic anemia with a baseline near 10. Upon admission her hemoglobin was noted to be 8.2 and has trended downward slightly to 7.8, now back to 8.7 No signs of acute blood loss Will check occult stool. (9) Diabetes Qualifiers: Diabetes mellitus type: type 2 Is this a current diagnosis for this admission?: Yes Plan: Patient is placed on a consistent carb diet. Accu-Cheks before meals and at bedtime with Humalog for sliding scale coverage. Holding Amaryl and metformin while inpatient. (10) Lung cancer metastatic to brain Is this a current diagnosis for this admission?: No Plan: History of lung cancer. Currently not undergoing treatment (11) HCAP (healthcare-associated pneumonia) Is this a current diagnosis for this admission?: Yes Plan: The patient was recently discharged from our facility with diagnosis of pneumonia. She did complete outpatient course of Zyvox. She presented with acute on chronic respiratory failure. Chest x-ray was benign. She was noted to have WHEEZING in b/l bases and rhonci throughout. She currently denies dyspnea, orthopnea, cough. Blood cultures as above. Sputum culture (+) GNR. The patient was empirically placed on IV cefepime and Zyvox based upon previous culture results; will adjust as cultures result. Remaining plan as above. - Time Time Spent with patient: 15-24 minutes Medications reviewed and adjusted accordingly: Yes Anticipated discharge: Home Within: within 48 hours - Inpatient Certification Based on my medical assessment, after consideration of the patient's comorbidities, presenting symptoms, or acuity I expect that the services needed warrant INPATIENT care.: Yes I certify that my determination is in accordance with my understanding of Medicare's requirements for reasonable and necessary INPATIENT services [42 CFR 412.3e].: Yes Medical Necessity: Need for IV Antibiotics, Risk of Complication if Not Cared For in Hospital - Plan Summary Plan Summary: CONTINUE NEBS, STEROIDS, ANTIBIOTICS FOR COPD EXACERBATION.
[2018-03-07] MEDS: NYSTATIN/TRIAMCIN CREAM 15 GM TP SCH ×2 (18:00→22:27)
[2018-03-07] MEDS: INSULIN LISPRO 100 UNIT/ML 3 ML VIAL SUBCUT PRN (22:46)
[2018-03-08] MEDS: IPRATROPIUM/ALBUTEROL 0.5-2.5 MG/3 ML AMPUL NEB SCH ×3 (02:28→13:52)
[2018-03-08] MEDS: LANSOPRAZOLE 30 MG TAB.RAP.DR PO SCH (05:22)
[2018-03-08] MEDS: LEVOTHYROXINE SODIUM 0.088 MG TABLET PO SCH (05:22)
[2018-03-08] MEDS: CEFEPIME 1 GM/D5W RTU 1 GM/50 ML RTUPB IV SCH ×2 (05:23→17:44)
[2018-03-08] MEDS: LINEZOLID 600 MG/300 ML RTUPB IV SCH (10:10)
[2018-03-08] MEDS: METHYLPREDNISOLONE INJ 40 MG/1 ML SDV IV SCH (10:11)
[2018-03-08] MEDS: FUROSEMIDE 20 MG TABLET PO SCH (10:11)
[2018-03-08] MEDS: LISINOPRIL 5 MG TABLET PO SCH (10:11)
[2018-03-08] MEDS: TIOTROPIUM BROMIDE DPI 5 CAP/KIT (18 MCG/CAP) IH SCH (10:11)
[2018-03-08] MEDS: GUAIFENESIN 600 MG TABLET.SA PO SCH (10:11)
[2018-03-08] MEDS: FLUCONAZOLE 100 MG TABLET PO SCH (10:11)
[2018-03-08] MEDS: ROFLUMILAST 500 MCG TABLET PO SCH (10:12)
[2018-03-08] MEDS: NYSTATIN/TRIAMCIN CREAM 15 GM TP SCH ×2 (10:15→13:29)
[2018-03-08 13:07] LABS: HEMATOCRIT 25.4 % (36.0-47.0); HEMOGLOBIN 8.6 g/dL (12.0-15.5); MEAN CORPUSCULAR HEMOGLOBIN 32.3 pg (27.0-33.4); MEAN CORPUSCULAR HGB CONC 33.9 g/dL (32.0-36.0); MEAN CORPUSCULAR VOLUME 96 fl (80-97); PLATELET COUNT 248 10^3/uL (150-450); RED BLOOD COUNT 2.66 10^6/uL (3.72-5.28); RED CELL DISTRIBUTION WIDTH 16.6 % (11.5-14.0); WHITE BLOOD COUNT 7.5 10^3/uL (4.0-10.5)
[2018-03-08] MEDS: HYDROCODONE/ACETAMINOPHEN 5-325 MG TABLET PO PRN (13:28)
[2018-03-08] MEDS: INSULIN LISPRO 100 UNIT/ML 3 ML VIAL SUBCUT PRN (13:29)
[2018-03-08] MEDS: LEVALBUTEROL HCL NEB 0.63 MG/3 ML AMPUL NEB PRN (16:16)
[2018-03-08 16:51] VITALS: BP 130/88
--- NOTE | 2018-03-14 17:17 | PDOC DISCHARGE SUMMARY ---
General - Admit/Disc Date/PCP Admission Date/Primary Care Provider: 03/04/18 02:59 ARASELI AGUILAR MD Discharge Date: 03/08/18 - Discharge Diagnosis (1) Sepsis Is this a current diagnosis for this admission?: Yes (2) Acute and chronic respiratory failure Is this a current diagnosis for this admission?: Yes (3) COPD (chronic obstructive pulmonary disease) Is this a current diagnosis for this admission?: Yes (4) Tinea corporis Is this a current diagnosis for this admission?: Yes (5) Toe abrasion, non-infected Is this a current diagnosis for this admission?: Yes (6) UTI (urinary tract infection) Is this a current diagnosis for this admission?: Yes (7) CHF (congestive heart failure) Is this a current diagnosis for this admission?: Yes (8) Anemia Is this a current diagnosis for this admission?: Yes (9) Diabetes Is this a current diagnosis for this admission?: Yes (10) Lung cancer metastatic to brain Is this a current diagnosis for this admission?: No (11) HCAP (healthcare-associated pneumonia) Is this a current diagnosis for this admission?: Yes - Additional Information Resuscitation Status: Full Code Discharge Diet: Cardiac Discharge Activity: Activity As Tolerated Prescriptions: Nystatin/Triamcin [Mycolog-II Cream 15 gm] 1 applic TP Q6HP PRN #1 tube PRN Reason: Prednisone 20 mg PO DAILY #13 tablet Roflumilast [Daliresp 500 Mcg Tablet] 250 mcg PO DAILY #30 tablet Home Medications: Albuterol Sulfate [Proair HFA Inhalation Aerosol 8.5 gm MDI] 2 puff IH Q6HP PRN 03/04/18 Furosemide [Lasix 40 mg Tablet] 40 mg PO DAILY 03/04/18 Glimepiride [Amaryl 1 mg Tablet] 1 mg PO DAILY 03/04/18 Hydrocodone Bit/Acetaminophen [Hydrocodon-Acetaminophen 5-325] 1 tab PO Q8HP PRN 03/04/18 Ipratropium/Albuterol Sulfate [Iprat-Albut 0.5-3(2.5) mg/3 ml] 3 ml NEB Q6 03/04 Lactulose [Enulose 10 gm/15 mL Oral Solution] 30 ml PO DAILY 03/04/18 Levalbuterol HCl [Xopenex Neb 1.25 mg/3 ml Ampul] 1.25 mg NEB Q4HP PRN 03/04/18 Levothyroxine Sodium [Synthroid 0.088 mg Tablet] 0.088 mg PO Q6AM 03/04/18 Lisinopril [Prinivil 5 mg Tablet] 5 mg PO DAILY 03/04/18 Metformin HCl [Metformin HCl ER] 500 mg PO BID 03/04/18 Pantoprazole Sodium [Protonix] 40 mg PO DAILY 03/04/18 Sertraline HCl [Zoloft 50 mg Tablet] 50 mg PO DAILY 03/04/18 Tiotropium [place] [Spiriva Handihaler 5 Cap/Kit (18 Mcg/Cap)] 1 puff IH DAILY 03/04/18 Tramadol HCl [Ultram 50 mg Tablet] 50 mg PO Q12HP PRN 03/04/18 Nystatin/Triamcin [Mycolog-II Cream 15 gm] 1 applic TP Q6HP PRN #1 tube Prednisone 20 mg PO DAILY #13 tablet 03/08/18 Roflumilast [Daliresp 500 Mcg Tablet] 250 mcg PO DAILY #30 tablet 03/08/18 History of Present Illness History of Present Illness: TRENTON MCCOY is a 72 year old woman who is well-known to this hospital and who has a history of COPD as well as congestive heart failure presented to ED with difficulty breathing. She was DCed from the hospital just about a week ago after being treated for hospital acquired pneumonia and sepsis. She just finished her course of antibiotics at home. She says she was doing well when she was first discharged from the hospital but about 3 days ago started feeling short of breath again. She denies any fevers. She denies any vomiting. She denies any chest pain. She has been coughing up a little green phlegm. Paramedics said when they first arrived her lung curtis were clear however in route she started to develop a lot of wheezing. In the ED she received fluids, ceftriaxone. On my eval she has COPD with exacerbation, UTI, sepsis, possible recurrent vs resolving pneumonia. Admit to hospitalist service for furur eval and care. Hospital Course Hospital Course: The patient is a 72-year-old female with an extensive medical history including CHF, CAD, [place], HTN, asthma, COPD (home O2 dependent, chronic respiratory failure) , DM 2, hypothyroidism, CKD, GERD, arthritis, dementia, depression, anemia, and lung cancer with brain metastasis who is well-known to the hospitalist service and admitted 03/04/18 for COPD exacerbation, urinary tract infection, and sepsis. Upon presentation, her lactate was elevated to 2.8, leukocytosis 10.8, she was tachycardic, tachypnic, hypotensive and her UA was indicative of a UTI - meeting the criteria for sepsis. The patient was [facility] with diagnosis of pneumonia. She did complete outpatient course of Zyvox. She presented (this admission) with acute on chronic respiratory failure. CXR was benign but she was noted to have adventitious lung sounds. She was empirically placed on cefepime and Zyvox based on her previous urine and sputum culture demonstrating VRE with resistances to vancomycin. Patient had significant excoriation and erythema in the bilateral groin and over the labia. When asked about her personal hygiene and how the patient goes to the bathroom, the patient states she normally urinates or defecates on herself and she is typically able to clean herself up "twice a day." She states that she lives with her son and [id number] who are her primary caregivers - they administer her medication, cook her food, and help bathe the patient. The overall poor hygiene and lack of care the patient received at home is likely what resulted in her skin breakdown and could have contributed to her UTI. Concerned about these findings, discharge planning was made aware and APS was contacted. She was treated with topical nystatin cream containing a steroid. In addition to her tinea corporis, the patient is noted to have numerous shallow abrasions and lacerations to toes to bilateral feet with ecchymosis. The patient reports that she was having trouble trimming her toenails and so she used a pair of pliers. No surrounding edema, erythema, or drainage. The patient did not develop cellulitis, but this (again) speaks to the lack of care the patient is receiving at home. APS was notified of these findings as well. After 4 days in the hospital, the patient was deemed safe for discharge. Her vital signs had improved and her leukocytosis resolved. ID was consulted about this patient's case, and she recommended discontinuing antibiotic therapy for the following reasons: 1. The PNA diagnosis was never confirmed. The patient was likely experiencing a COPD exacerbation. 2. Urine cultures were not impressive, E. faecalis was likely a contaminant. An APS case filler conducted an assessment while the patient was at [facility]. The APS metal pattern maker stated that she would have to conduct an assessment of the patient in the home. There was no indication at this time to look for alternative living arrangements. The patient was sent home with prescriptions for a Prednisone taper, Darliresp, and Nystatin cream. For more information regarding this patient's hospitalization, please refer to the EMR. Physical Exam Vital Signs: Temp Pulse Resp BP Pulse Ox 97.9 F 105 H 17 130/88 H 99 03/08/18 16:47 03/08/18 16:47 03/08/18 16:47 03/08/18 16:47 03/08/18 16:47 Pulse Oximeter Continuous Start: 03/04/18 03: 25 Freq: RTQ4 Status: Discharge Document 03/08/18 16:16 HCR (Rec: 03/08/18 17:33 HCR [id number]) Pulse Oximetry Assessment Oxygen Saturation (92-100) 100 Oxygen Flow Rate (L/min) 2 Oxygen Delivery Method Nasal Cannula Equipment Usage Equipment in Use Continuous SpO2 Machine # 9 Results Laboratory Results: 03/08/18 12:25 03/07/18 05:51 03/04/18 03/04/18 03/04/18 07:45 07:45 14:26 Creatine Kinase < 20 L CK-MB (CK-2) 1.10 Troponin I 0.044 0.039 Impressions: Chest X-Ray 03/03/18 23:29 IMPRESSION: No acute cardiopulmonary findings. Stable right perihilar scar. Status: Imported from PACS Qualifiers - * PATIENT BEING DISCHARGED WITH ANY OF THE FOLLOWING DIAGNOSIS: No Plan Discharge Plan: DISCHARGE HOME WITH HOME HEALTH. APS TO PREFORM HOME SITE VISIT. PRESCRIPTIONS FOR 5 DAY STEROID TAPER. Time Spent: Greater than 30 Minutes
== END 2018-03-08 17:49 | disposition home health service (06) | DRG 871 ==
LOC: ER 23:17 → EH 03-04 02:59 → 3S 03-04 04:46
PROVIDERS: ADMIT Internal Medicine; ATTEND Internal Medicine
DX: A41.9 Sepsis, unspecified organism (principal); J96.21 Acute and chronic respiratory failure with hypoxia; J18.9 Pneumonia, unspecified organism; N39.0 Urinary tract infection, site not specified; J44.1 Chronic obstructive pulmonary disease with (acute) exacerbation; I50.32 Chronic diastolic (congestive) heart failure; C34.90 Malignant neoplasm of unspecified part of unspecified bronchus or lung; C79.31 Secondary malignant neoplasm of brain; T76.01XA Adult neglect or abandonment, suspected, initial encounter; I11.0 Hypertensive heart disease with heart failure; I25.10 Atherosclerotic heart disease of native coronary artery without angina pectoris; E03.9 Hypothyroidism, unspecified; D64.9 Anemia, unspecified; E11.8 Type 2 diabetes mellitus with unspecified complications; K21.9 Gastro-esophageal reflux disease without esophagitis; B35.4 Tinea corporis; R46.0 Very low level of personal hygiene; F17.210 Nicotine dependence, cigarettes, uncomplicated; S90.415A Abrasion, left lesser toe(s), initial encounter; S90.414A Abrasion, right lesser toe(s), initial encounter; X58.XXXA Exposure to other specified factors, initial encounter; Y93.89 Activity, other specified; Y92.098 Other place in other non-institutional residence as the place of occurrence of the external cause; I25.2 Old myocardial infarction; Z99.81 Dependence on supplemental oxygen; Z79.51 Long term (current) use of inhaled steroids; Z79.899 Other long term (current) drug therapy
CPT/HCPCS: 36415; 71045; 80048; 80053; 81001; 82550; 82553; 82803; 82962; 83605; 84439; 84443; 84481; 84484; 85025; 85027; 85610; 85730; 87040; 87070; 87077; 87086; 87088; 87186; 87205; 93005; 93010; 94640; 94667; 94762; 94799; 96361; 96374; 99291; J0692; J0696; J1815; J2020; J2920; J2930; J3490; J7030; J7040; J7120; J7614; J7620

== ENCOUNTER 2018-03-11 13:38 | Emergency (ER) | payer MEDICARE, OTHER ==
[2018-03-11] MEDS ORDERED: IPRATROPIUM/ALBUTEROL 0.5-2.5 MG/3 ML AMPUL NEB ONE (14:00)
[2018-03-11 14:39] LABS: ARTERIAL BLOOD BASE EXCESS 7.8 mmol/L; ARTERIAL BLOOD H2CO3 1.55 mmol/L (1.05-1.35); ARTERIAL BLOOD HCO3 33.2 mmol/L (20-26); ARTERIAL BLOOD O2 SATURATION 97.4 % (94-98); ARTERIAL BLOOD PCO2 51.6 mmHg (35-45); ARTERIAL BLOOD PH 7.43 (7.35-7.45); ARTERIAL BLOOD PO2 97.2 mmHg (80-100); ARTERIAL BLOOD TOTAL CO2 34.8 mmol/L (21-25)
[2018-03-11 14:40] LABS: ARTERIAL BLOOD FIO2 2L
[2018-03-11 14:45] LABS: HEMATOCRIT 26.6 % (36.0-47.0); HEMOGLOBIN 8.8 g/dL (12.0-15.5); MEAN CORPUSCULAR HEMOGLOBIN 32.4 pg (27.0-33.4); MEAN CORPUSCULAR HGB CONC 33.2 g/dL (32.0-36.0); MEAN CORPUSCULAR VOLUME 98 fl (80-97); PLATELET COUNT 199 10^3/uL (150-450); RED BLOOD COUNT 2.73 10^6/uL (3.72-5.28); RED CELL DISTRIBUTION WIDTH 16.9 % (11.5-14.0); WHITE BLOOD COUNT 7.3 10^3/uL (4.0-10.5)
--- NOTE | 2018-03-11 14:49 | RADIOLOGY REPORT (SQ) ---
EXAM DESCRIPTION: CHEST SINGLE VIEW COMPLETED DATE/TIME: 03/11/2018 2:34 pm REASON FOR STUDY: shortness of breath COMPARISON: 03/04/2018 EXAM PARAMETERS: NUMBER OF VIEWS: One view. TECHNIQUE: Single frontal radiographic view of the chest acquired. RADIATION DOSE: NA LIMITATIONS: None. FINDINGS: LUNGS AND PLEURA: Stable pulmonary exam demonstrating right perihilar scarring. No new fo mohinder consolidation, pleural effusion, or pneumothorax. MEDIASTINUM AND HILAR STRUCTURES: No masses. Contour normal. HEART AND VASCULAR STRUCTURES: Heart normal in size. Normal vasculature. BONES: No acute findings. HARDWARE: None in the chest. OTHER: No other significant finding. IMPRESSION: Stable radiographic appearance of the chest. No evidence of acute cardiopulmonary abnor mality. TECHNICAL DOCUMENTATION: JOB ID: [id number]- All Rights Reserved Reading location - IP/workstation name: [email or web address]
[2018-03-11 15:09] LABS: CREATINE KINASE MB 0.9 ng/mL (<4.55)
[2018-03-11 15:11] LABS: INTERNATIONAL RATION (INR) 0.94; PROTHROMBIN TIME 13.1 SEC (11.4-15.4)
[2018-03-11 15:16] LABS: APPEARANCE,URINE SLIGHTLY-CLOUDY; BILIRUBIN,URINE NEGATIVE (NEGATIVE); COLOR,URINE YELLOW; GLUCOSE, URINE NEGATIVE (NEGATIVE); KETONES,URINE NEGATIVE (NEGATIVE); LEUKOCYTE ESTERASE,URINE SMALL (NEGATIVE); NITRITE,URINE NEGATIVE (NEGATIVE); PROTEIN,URINE NEGATIVE (NEGATIVE); URINE SPECIFIC GRAVITY 1.016; UROBILINOGEN,URINE NEGATIVE mg/dL (<2.0)
[2018-03-11 15:17] LABS: ABSOLUTE LYMPHOCYTES# (MANUAL) 0.4 10^3/uL (0.5-4.7); ABSOLUTE MONOCYTES # (MANUAL) 0.2 10^3/uL (0.1-1.4); ABSOLUTE NEUTROPHILS# (MANUAL) 6.6 10^3/uL (1.7-8.2); BASOPHILS % (MANUAL) 0 % (0-2); EOSINOPHILS % (MANUAL) 1 % (0-6); LYMPHOCYTES % (MANUAL) 6 % (13-45); MONOCYTES % (MANUAL) 3 % (3-13); SEGMENTED NEUTROPHILS % (MAN) 90 % (42-78); TOTAL CELLS COUNTED 100
[2018-03-11 15:18] LABS: ANISOCYTOSIS 1+; OVALOCYTES SLIGHT; PLATELET COMMENT ADEQUATE; POIKILOCYTOSIS 1+; TEAR DROP CELLS SLIGHT; TROPONIN I 0.076 ng/mL
[2018-03-11 15:27] LABS: ALANINE AMINOTRANSFERASE 23 U/L (9-52); ALBUMIN 2.7 g/dL (3.5-5.0); ALKALINE PHOSPHATASE 62 U/L (38-126); ANION GAP 5 (5-19); ASPARTATE AMINO TRANSFERASE 20 U/L (14-36); BILIRUBIN,DIRECT 0.2 mg/dL (0.0-0.4); BILIRUBIN,TOTAL 0.2 mg/dL (0.2-1.3); BLOOD UREA NITROGEN 24 mg/dL (7-20); CALCIUM 8.8 mg/dL (8.4-10.2); CARBON DIOXIDE 31 mmol/L (22-30); CHLORIDE 108 mmol/L (98-107); GLUCOSE 107 mg/dL (75-110); POTASSIUM 4.2 mmol/L (3.6-5.0); SODIUM 144.1 mmol/L (137-145); TOTAL PROTEIN 5.1 g/dL (6.3-8.2)
[2018-03-11 15:28] LABS: CREATINE KINASE < 20 U/L (30-135)
--- NOTE | 2018-03-11 16:40 | ER Document Report ---
ED Respiratory Problem - General Chief Complaint: Shortness Of Breath Stated Complaint: RESPIRTORY DISTRESS Time Seen by Provider: 03/11/18 13:46 Mode of Arrival: Stretcher Information source: Patient Notes: Patient started having sudden onset of shortness of breath at home and EMS was called. Patient was given breathing treatment by EMS prior to arrival in the emergency room. She also took her prednisone this morning. Infant was recently discharged from the hospital. TRAVEL OUTSIDE OF THE [place] IN LAST 30 DAYS: No - HPI Patient complains to provider of: COPD, Short of breath Onset: Just prior to arrival Duration: Better Initiating Event: Other - Unknown Quality of pain: No pain Severity: Moderate Pain Level: 3 Context: Hx COPD Short of Breath: Moderate EMS treatments: Bronchodilators, Oxygen Associated symptoms: Difficulty breathing Similar symptoms previously: Yes Recently seen / treated by doctor: Yes - Related Data Allergies/Adverse Reactions: azithromycin Allergy (Verified 03/11/18 14:07) amoxicillin [Amoxicillin] Adverse Reaction (Verified 03/11/18 14:07) visual hallucinations erythromycin base [Erythromycin Base] Adverse Reaction (Verified 03/11/18 14:07) visual hallucinations Potassium Clavulanate * [From Augmentin] Adverse Reaction (Verified 03/11/18 14: 07) visual hallucinations Past Medical History - Social History Smoking Status: Former Smoker Frequency of alcohol use: None Drug Abuse: None Family History: COPD, Malignancy - Lung cancer Patient has suicidal ideation: No Patient has homicidal ideation: No - Past Medical History Cardiac Medical History: Reports: Hx Congestive Heart Failure, Hx Coronary Artery Disease, Hx Heart Attack, Hx Hypertension Denies: Hx DVT, Hx Hypercholesterolemia, Hx Pulmonary Embolism Pulmonary Medical History: Reports: Hx Asthma, Hx Bronchitis, Hx COPD - 2 L nasal home oxygen, Hx Pneumonia, Hx Respiratory Failure - Chronic respiratory failure Denies: Hx Sleep Apnea, Hx Tuberculosis Neurological Medical History: Denies: Hx Seizures Endocrine Medical History: Reports: Hx Diabetes Mellitus Type 2, Hx Hypothyroidism. 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 Denies: Hx Cirrhosis, Hx Hepatitis, Hx Ulcer Musculoskeletal Medical History: Reports Hx Arthritis, Denies Hx Multiple Sclerosis, Reports Hx Musculoskeletal Deformity, Reports Hx Musculoskeletal Trauma Psychiatric Medical History: Reports: Hx Dementia, Hx Depression Denies: Hx Bipolar Disorder, Hx Schizophrenia Infectious Medical History: Reports: Hx C-Diff. Denies: Hx Hepatitis Past Surgical History: Reports: Hx Cholecystectomy, Hx Orthopedic Surgery - Foot surgery, Other - cataract bilateral - Immunizations Hx Diphtheria, Pertussis, Tetanus Vaccination: Yes Hx Pneumococcal Vaccination: 08/30/12 Review of Systems - Review of Systems Constitutional: denies: Chills, Fever EENT: denies: Eye pain, Eye discharge Cardiovascular: Dyspnea. denies: Chest pain Respiratory: Short of breath, Wheezing Gastrointestinal: denies: Abdomen distended, Abdominal pain, Diarrhea, Nausea, Vomiting Genitourinary: No symptoms reported Female Genitourinary: No symptoms reported Musculoskeletal: No symptoms reported Skin: No symptoms reported Hematologic/Lymphatic: No symptoms reported Neurological/Psychological: No symptoms reported -: Yes All other systems reviewed and negative Physical Exam - Vital signs Vitals: Temp Pulse Ox 97.9 F 99 03/11/18 13:42 03/11/18 13:42 - General General appearance: Appears well, Alert In distress: Moderate - HEENT Head: Normocephalic, Atraumatic Eyes: Normal Pupils: PERRL - Respiratory Respiratory status: Respiratory distress, Tachypnea Chest status: Nontender Breath sounds: Wheezing Chest palpation: Normal - Cardiovascular Rhythm: Regular Heart sounds: Normal auscultation Murmur: No - Abdominal Inspection: Normal Distension: No distension Bowel sounds: Normal Tenderness: Nontender Organomegaly: No organomegaly - Back Back: Normal, Nontender - Extremities General upper extremity: Normal inspection, Nontender, Normal color, Normal ROM , Normal temperature General lower extremity: Normal inspection, Nontender, Normal color, Normal ROM , Normal temperature, Normal weight bearing. No: Sabine's sign - Neurological Neuro grossly intact: Yes Cognition: Normal Orientation: AAOx4 [place] Coma Scale Eye Opening: Spontaneous [place] Coma Scale Verbal: Oriented [place] Coma Scale Motor: Obeys Commands Raquel Coma Scale Total: 15 Speech: Normal Motor strength normal: LUE, RUE, LLE, RLE Sensory: Normal - Psychological Associated symptoms: Normal affect, Normal mood - Skin Skin Temperature: Warm Skin Moisture: Dry Skin Color: Normal Course - Vital Signs Vital signs: Temp Pulse Resp BP Pulse Ox 97.9 F 99 20 129/67 H 96 08/12/18 13:42 03/11/18 20:32 03/11/18 20:32 03/11/18 20:32 03/11/18 20:32 - Laboratory Result Diagrams: 03/11/18 14:00 03/11/18 14:00 Laboratory results interpreted by me: 03/11/18 03/11/18 03/11/18 14:00 14:00 14:00 RBC 2.73 L Hgb 8.8 L Hct 26.6 L MCV 98 H RDW 16.9 H Seg Neuts % (Manual) 90 H Lymphocytes % (Manual) 6 L Abs Lymphs (Manual) 0.4 L APTT D-Dimer Carbonic Acid ABG pCO2 ABG HCO3 ABG Total CO2 Chloride 108 H Carbon Dioxide 31 H BUN 24 H Creatine Kinase < 20 L NT-Pro-B Natriuret Pep 1570 H Total Protein 5.1 L Albumin 2.7 L Urine Blood Ur Leukocyte Esterase 03/11/18 03/11/18 03/11/18 14:00 14:20 14:48 RBC Hgb Hct MCV RDW Seg Neuts % (Manual) Lymphocytes % (Manual) Abs Lymphs (Manual) APTT D-Dimer 2.59 H Carbonic Acid 1.55 H ABG pCO2 51.6 H ABG HCO3 33.2 H ABG Total CO2 34.8 H Chloride Carbon Dioxide BUN Creatine Kinase NT-Pro-B Natriuret Pep Total Protein Albumin Urine Blood MODERATE H Ur Leukocyte Esterase SMALL H 03/11/18 15:40 RBC Hgb Hct MCV RDW Seg Neuts % (Manual) Lymphocytes % (Manual) Abs Lymphs (Manual) APTT 21.3 L D-Dimer Carbonic Acid ABG pCO2 ABG HCO3 ABG Total CO2 Chloride Carbon Dioxide BUN Creatine Kinase NT-Pro-B Natriuret Pep Total Protein Albumin Urine Blood Ur Leukocyte Esterase - Diagnostic Test Radiology reviewed: Image reviewed, Reports reviewed - EKG Interpretation by Me EKG shows normal: Sinus rhythm Rate: Tachycardia [place]/QRS: RBBB When compared to previous EKG there are: No significant change Additional EKG results interpreted by me: 03/11/18 19:53 Old right bundle branch block. Sinus tachycardia. No STEMI. 03/11/18 19:53 - Transfer of Care Notes: 03/11/18 19:58 I discussed the possibility of hospital admission with the patient. Patient says she does not want to be admitted to the hospital at this time. Says she feels much better and she wants to go home. She promised to come back to the emergency room if her condition worsens. I will go ahead and discharge patient per her wish. I encouraged her to come back to the emergency room if she changes her mind I want to be admitted or if her condition worsens. 03/11/18 20:00 Patient also says she has all her medications at home she does not need any refill at this time. Discharge - Discharge Clinical Impression: Chronic anemia, COPD with exacerbation COPD (chronic obstructive pulmonary disease) Qualifiers: COPD type: unspecified COPD Qualified Code(s): J44.9 - Chronic obstructive pulmonary disease, unspecified Condition: Stable Disposition: HOME, SELF-CARE Instructions: Chronic Obstructive Lung Disease ([facility]) Additional Instructions: Please follow-up with your primary doctor tomorrow morning. Return to the emergency room if her condition worsens. Referrals: ARASELI AGUILAR MD [Primary Care Provider] - Follow up as needed
--- NOTE | 2018-03-11 17:32 | EKG REPORT ---
SEVERITY:- ABNORMAL ECG - SINUS TACHYCARDIA RIGHT BUNDLE BRANCH BLOCK : Confirmed by: Susan Mishra MD 11-Mar-2018 17:31:44
--- NOTE | 2018-03-11 17:59 | RADIOLOGY REPORT (SQ) ---
EXAM DESCRIPTION: CTA CHEST COMPLETED DATE/TIME: 03/11/2018 5:23 pm REASON FOR STUDY: Shortness of breath COMPARISON: Chest CTs dated 11/28/2017, 11/21/2017, 10/23/2017, 09/13/2017, and 08/12/2017. TECHNIQUE: CT scan of the chest performed using helical scanning technique with dynamic intravenous contrast injection. Images reviewed with lung, soft tissue and bone windows. Reconstructed coronal and sagittal MPR images reviewed. Additional 3 dimensional post-processing performed to develop Maximal Intensity Projection images (NE P). All images stored on PACS. All CT scanners at this facility use dose modulation, iterative reconstruction, and/or weight based d osing when appropriate to reduce radiation dose to as low as reasonably achievable (ALARA). [facility]: Dose Right [facility]: CareDose [facility]: Dose Right [facility]: Teradose 4D [facility]: Spinal Modulation CONTRAST TYPE AND DOSE: contrast/concentration: Isovue 350.00 mg/ml; Total Contrast Delivered: 78.0 ml; Total Saline Delivered: 110.0 ml Contrast bolus optimized for the pulmonary arteries. Not diagnostic for the aorta. RENAL FUNCTION: BUN 24 ; creatinine 0.78 RADIATION DOSE: CT Rad equipment meets quality standard of care and radiation dose reduction techniq ues were employed. CTDIvol: 29.6 - 33.1 mGy. DLP: 1182 mGy-cm. . LIMITATIONS: None. FINDINGS: LUNGS AND PLEURA: Stable appearance of right perihilar scarring. No new focal consolidati on. Decreased volume of a right-sided pleural effusion. No pneumothorax. AORTA AND GREAT VESSELS: No aneurysm. Contrast bolus not optimized for the aorta. HEART: No pericardial effusion. Moderate to marked coronary artery calcifications. PULMONARY ARTERIES: No emboli visualized in the main pulmonary arteries or the segmental branches. HILAR AND MEDIASTINAL STRUCTURES: No identified masses or abnormal nodes. HARDWARE: None in the chest. UPPER ABDOMEN: Status post cholecystectomy. Pneumobilia. Right renal exophytic cyst. No acute find ings. THYROID AND OTHER SOFT TISSUES: No masses. No adenopathy. BONES: No acute or significant finding. 3D MIPS: Confirm above findings. OTHER: No other significant finding. IMPRESSION: No central or segmental pulmonary embolus. Stable CT appearance of the lung parenchyma. COMMENT: Quality ID # [id number]: Final reports with documentation of one or more dose reduction techniques (e.g., Automated exposure control, adjustment of the mA and/or kV according to patient size, use of iterative reconstruction technique) TECHNICAL DOCUMENTATION: JOB ID: [id number]- All Rights Reserved Reading location - IP/workstation name: [email or web address]
[2018-03-11 20:33] VITALS: BP 129/67
== END 2018-03-11 20:55 | disposition home or self-care (01) ==
LOC: ER 13:38
DX: J44.1 Chronic obstructive pulmonary disease with (acute) exacerbation (principal); D64.89 Other specified anemias; R06.02 Shortness of breath; Z79.899 Other long term (current) drug therapy; Z99.81 Dependence on supplemental oxygen; Z87.891 Personal history of nicotine dependence; I25.10 Atherosclerotic heart disease of native coronary artery without angina pectoris; I25.2 Old myocardial infarction; I10 Essential (primary) hypertension; E11.9 Type 2 diabetes mellitus without complications
CPT/HCPCS: 93005; 94640; 99285; 51701; 36415; 87040; 87086; 82553; 82803; 82550; 85025; 85610; 85730; 82272; 80053; 81001; 84484; 85379; 83880; 71045; 71275; 93010; A9270; J7620

== ENCOUNTER 2018-03-18 01:01 | Inpatient (IN) | payer MEDICARE, OTHER ==
[2018-03-18] MEDS ORDERED: IPRATROPIUM/ALBUTEROL 0.5-2.5 MG/3 ML AMPUL NEB ONE (01:45)
--- NOTE | 2018-03-18 02:37 | ER Document Report ---
ED General - General Chief Complaint: Chest Pain Stated Complaint: CHEST PAIN Time Seen by Provider: 03/18/18 01:44 Notes: Patient is a 72-year-old female that comes emergency department for chief complaint of difficulty breathing, chest tightness, and chest pain. Past medical history includes chronic respiratory failure on 2 L nasal cannula at all times, COPD, CHF, PR, chronic kidney disease, type 2 diabetes, lung cancer with brain metastasis. Patient states she is not sure who called the ambulance. She states she thinks she is having fevers at home but she is not sure. She lives at home with home health. She states that she had chest pain earlier, she was given 324 mg of aspirin, nitroglycerin, DuoNeb, she states she no longer has chest pain. She states she aches all over. TRAVEL OUTSIDE OF THE [place] IN LAST 30 DAYS: No - Related Data Allergies/Adverse Reactions: azithromycin Allergy (Verified 03/11/18 14:07) amoxicillin [Amoxicillin] Adverse Reaction (Verified 03/11/18 14:07) visual hallucinations erythromycin base [Erythromycin Base] Adverse Reaction (Verified 03/11/18 14:07) visual hallucinations Potassium Clavulanate * [From Augmentin] Adverse Reaction (Verified 03/11/18 14: 07) visual hallucinations Past Medical History - General Information source: Patient - Social History Smoking Status: Current Every Day Smoker Smoking Education Provided: Yes - <3 min Frequency of alcohol use: None Drug Abuse: None Lives with: Family Family History: COPD, Malignancy - Lung cancer - Past Medical History Cardiac Medical History: Reports: Hx Congestive Heart Failure, Hx Coronary Artery Disease, Hx Heart Attack, Hx Hypertension Denies: Hx DVT, Hx Hypercholesterolemia, Hx Pulmonary Embolism Pulmonary Medical History: Reports: Hx Asthma, Hx Bronchitis, Hx COPD - 2 L nasal home oxygen, Hx Pneumonia, Hx Respiratory Failure - Chronic respiratory failure Denies: Hx Sleep Apnea, Hx Tuberculosis Neurological Medical History: Denies: Hx Seizures Endocrine Medical History: Reports: Hx Diabetes Mellitus Type 2, Hx Hypothyroidism. 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 Denies: Hx Cirrhosis, Hx Hepatitis, Hx Ulcer Musculoskeletal Medical History: Reports Hx Arthritis, Denies Hx Multiple Sclerosis, Reports Hx Musculoskeletal Deformity, Reports Hx Musculoskeletal Trauma Psychiatric Medical History: Reports: Hx Dementia, Hx Depression Denies: Hx Bipolar Disorder, Hx Schizophrenia Infectious Medical History: Reports: Hx C-Diff. Denies: Hx Hepatitis Past Surgical History: Reports: Hx Cholecystectomy, Hx Orthopedic Surgery - Foot surgery, Other - cataract bilateral - Immunizations Hx Diphtheria, Pertussis, Tetanus Vaccination: Yes Hx Pneumococcal Vaccination: 08/30/12 Review of Systems - Review of Systems Constitutional: No symptoms reported EENT: No symptoms reported Cardiovascular: See HPI Respiratory: See HPI Gastrointestinal: No symptoms reported Genitourinary: No symptoms reported Female Genitourinary: No symptoms reported Musculoskeletal: No symptoms reported Skin: No symptoms reported Hematologic/Lymphatic: No symptoms reported Neurological/Psychological: No symptoms reported Physical Exam - Vital signs Vitals: Temp Pulse Resp BP Pulse Ox 98.6 F 115 H 18 142/80 H 100 03/18/18 01:53 03/18/18 01:53 03/18/18 01:53 03/18/18 01:53 03/18/18 01:53 - Notes Notes: GENERAL: Unkempt and generally unwell appearing HEAD: Normocephalic, atraumatic. EYES: Pupils equal, round, and reactive to light. Extraocular movements intact. ENT: Oral mucosa moist, tongue midline. [Nares patent, no nasal septal hematoma , TM's intact.] NECK: Full range of motion. Supple. Trachea midline. LUNGS: Diminished breath sounds bilaterally, expiratory wheezes, mild tachypnea. HEART: Borderline tachycardia, regular ABDOMEN: Soft, non-tender. Non-distended. Bowel sounds present in all 4 quadrants. EXTREMITIES: Left upper extremity with a skin tear, there is tenderness, erythema, and warmth suggestive of cellulitis. No induration or purulent drainage. Normal upper extremity exam otherwise, normal lower extremity otherwise BACK: no cervical, thoracic, lumbar midline tenderness. No saddle anesthesia, normal distal neurovascular exam. NEUROLOGICAL: Alert and oriented x3. Normal speech. [cranial nerves II through XII grossly intact]. PSYCH: Normal affect, normal mood. SKIN: Slightly flushed, not diaphoretic. Course - Re-evaluation Re-evalutation: Patient with expiratory wheezing, a few scattered rhonchi, mild tachypnea, no hypoxia. She is borderline tachycardic. She is generally unwell appearing. She has a soft abdomen, she is alert and oriented, she also has evidence of cellulitis over the left upper extremity at a skin tear. Area was cleaned and dressed. Chest x-ray showing effusion versus pneumonia in the right lower lobe, cefepime was started. Tachycardia resolved on reevaluation. No respiratory distress on reevaluation, she still has some wheezing but I suspect this is with her chronic respiratory failure. Venous blood gas is unremarkable. CBC, chemistry without significant change from prior. Troponin is indeterminate and without significant change from prior. We will cycle. Discussed with patient, she lives at home, has home health, however she does not appear to be able to take care of herself. Patient states she ambulates at home and is able to get up, use the bathroom, clean herself, and get food. We attempted to ambulate her but she was very weak and was unable to perform this at all. Concern about her going home with this state. Discussed with patient. Will discuss with hospitalist for admission for weakness, possible pneumonia versus effusion, and cellulitis. Discussed with Dr. Awan. 03/18/18 07:[address] Abraham, patient will be admitted to telemetry full admission. - Vital Signs Vital signs: Temp Pulse Resp BP Pulse Ox 98.0 F 115 H 16 111/60 99 03/18/18 03:51 03/18/18 01:53 03/18/18 07:01 03/18/18 07:01 03/18/18 07:01 - Laboratory Result Diagrams: 03/18/18 02:45 03/18/18 02:45 Laboratory results interpreted by me: 03/18/18 03/18/18 03/18/18 02:45 02:45 02:45 RBC 2.52 L Hgb 8.1 L Hct 24.5 L RDW 17.1 H Plt Count 142 L Lymphocytes % 10.4 L VBG HCO3 34.1 H Sodium 145.9 H Potassium 3.4 L Carbon Dioxide 32 H Discharge - Discharge Clinical Impression: Weakness, Left arm cellulitis, Shortness of breath, Pleural effusion Condition: Stable Disposition: ADMITTED INPATIENT Admitting Provider: Hospitalist Unit Admitted: Telemetry Referrals: ARASELI AGUILAR MD [Primary Care Provider] - Follow up as needed
--- NOTE | 2018-03-18 02:54 | RADIOLOGY REPORT (SQ) ---
EXAM DESCRIPTION: XR CHEST 1 VIEW COMPLETED DATE/TME: 03/18/2018 01:45 CLINICAL HISTORY: 72 years Female, cp COMPARISON: March 11, 2018 NUMBER OF VIEWS/TECHNIQUE: 1/AP FINDINGS: Moderate scarlike pattern of the right hilum, small right basilar opacity-effusion, prominent interstitium. Atherosclerosis. Normal cardiac silhouette. No pneumothorax. Stable bony thorax. IMPRESSION: Worsening includes a small right basilar opacity-effusion.
[2018-03-18 03:00] LABS: ABSOLUTE EOSINOPHILS # (AUTO) 0.1 10^3/uL (0.0-0.6); ABSOLUTE LYMPHOCYTES (AUTO) 0.7 10^3/uL (0.5-4.7); ABSOLUTE MONOCYTES (AUTO) 0.7 10^3/uL (0.1-1.4); ABSOLUTE NEUT (AUTO) 4.9 10^3/uL (1.7-8.2); BASOPHILS % (AUTO) 0.4 % (0-2); EOSINOPHILS % (AUTO) 1.5 % (0-6); HEMATOCRIT 24.5 % (36.0-47.0); HEMOGLOBIN 8.1 g/dL (12.0-15.5); LYMPHOCYTES % (AUTO) 10.4 % (13-45); MEAN CORPUSCULAR VOLUME 97 fl (80-97); MONOCYTES % (AUTO) 10.6 % (3-13); PLATELET COUNT 142 10^3/uL (150-450); RED BLOOD COUNT 2.52 10^6/uL (3.72-5.28); RED CELL DISTRIBUTION WIDTH 17.1 % (11.5-14.0); SEGMENTED NEUTROPHILS % (AUTO) 77.1 % (42-78); TOTAL CELLS COUNTED % (AUTO) 100 %; WHITE BLOOD COUNT 6.4 10^3/uL (4.0-10.5)
[2018-03-18 03:20] LABS: VENOUS BLOOD BASE EXCESS 7.6 mmol/L; VENOUS BLOOD HCO3 34.1 mmol/L (20-32); VENOUS BLOOD PH 7.37 (7.30-7.42)
[2018-03-18 03:25] LABS: BLOOD UREA NITROGEN 9 mg/dL (7-20); CALCIUM 8.4 mg/dL (8.4-10.2); GLUCOSE 79 mg/dL (75-110); POTASSIUM 3.4 mmol/L (3.6-5.0)
[2018-03-18 03:31] LABS: ANION GAP 8 (5-19); CARBON DIOXIDE 32 mmol/L (22-30); CHLORIDE 106 mmol/L (98-107); SODIUM 145.9 mmol/L (137-145)
[2018-03-18] MEDS ORDERED: CEFEPIME 2 GM/D5W RTU 2 GM/50 ML RTUPB IV ONE (05:26)
[2018-03-18] MEDS ORDERED: OXYCODONE-ACETAMINOPHEN 5-325 MG TABLET PO ONE (06:27)
[2018-03-18] MEDS ORDERED: VANCOMYCIN HCL INJ 1000 MG VIAL IV ONE (07:23)
--- NOTE | 2018-03-18 07:58 | EKG REPORT ---
SEVERITY:- ABNORMAL ECG - SINUS TACHYCARDIA MULTIPLE ATRIAL PREMATURE COMPLEXES IVCD, CONSIDER ATYPICAL RBBB : Confirmed by: Issa Martinez MD 18-Mar-2018 07:57:38
[2018-03-18] MEDS ORDERED: ACETAMINOPHEN 325 MG TABLET PO PRN (10:46)
[2018-03-18] MEDS ORDERED: ALBUTEROL SULFATE 0.083% NEB 2.5 MG/3 ML AMPUL NEB PRN (10:46)
[2018-03-18] MEDS ORDERED: ONDANSETRON HCL INJ/PF 4 MG/2 ML SDV IV PRN (10:46)
[2018-03-18] MEDS ORDERED: TRAMADOL HCL 50 MG TABLET PO PRN (10:54)
[2018-03-18] MEDS ORDERED: NYSTATIN/TRIAMCIN CREAM 15 GM TP PRN (10:54)
[2018-03-18] MEDS ORDERED: DEXTROSE 50%-WATER 25 GM/50 ML DISP.SYRIN IV PRN ×2 (10:58)
[2018-03-18] MEDS ORDERED: DEXTROSE 40% GEL 15 GM TUBE PO PRN ×2 (10:58)
[2018-03-18] MEDS ORDERED: GLUCAGON,HUMAN RECOMB 1 MG INJ IM PRN (10:58)
[2018-03-18] MEDS ORDERED: METHYLPREDNISOLONE INJ 40 MG/1 ML SDV IV SCH (11:00)
[2018-03-18] MEDS: IPRATROPIUM/ALBUTEROL 0.5-2.5 MG/3 ML AMPUL NEB SCH ×3 (11:37→19:45)
[2018-03-18] MEDS: TIOTROPIUM BROMIDE DPI 5 CAP/KIT (18 MCG/CAP) IH SCH (12:47)
[2018-03-18] MEDS: LEVOTHYROXINE SODIUM 0.088 MG TABLET PO SCH (12:47)
[2018-03-18] MEDS: FAMOTIDINE 20 MG TABLET PO SCH ×2 (12:47→22:54)
[2018-03-18] MEDS: DOCUSATE SODIUM 100 MG CAPSULE PO SCH ×2 (12:47→17:03)
[2018-03-18] MEDS: FUROSEMIDE 40 MG TABLET PO SCH (12:47)
[2018-03-18] MEDS: ROFLUMILAST 500 MCG TABLET PO SCH (12:49)
[2018-03-18] MEDS: NORMAL SALINE 1000 ML 1,000 ML IV PRN ×2 (12:49→22:57)
[2018-03-18] MEDS: LISINOPRIL 5 MG TABLET PO SCH (12:50)
[2018-03-18] MEDS: ENOXAPARIN SODIUM INJ 40 MG/0.4 ML DISP.SYRIN SUBCUT SCH (12:54)
[2018-03-18] MEDS: LACTULOSE SYRUP 20 GM/30 ML UDCUP PO SCH (12:54)
[2018-03-18] MEDS: METHYLPREDNISOLONE INJ 125 MG/2 ML SDV IV SCH ×2 (13:01→22:55)
[2018-03-18] MEDS: INSULIN REG, HUMAN 100 UNIT/ML 3 ML VIAL (PYX) SUBCUT PRN ×2 (18:30→23:02)
[2018-03-18] MEDS: SERTRALINE HCL 50 MG TABLET PO SCH (22:55)
[2018-03-18] MEDS: HYDROCODONE/ACETAMINOPHEN 5-325 MG TABLET PO PRN (23:03)
[2018-03-19] MEDS: IPRATROPIUM/ALBUTEROL 0.5-2.5 MG/3 ML AMPUL NEB SCH ×4 (02:19→20:01)
[2018-03-19] MEDS: LEVOTHYROXINE SODIUM 0.088 MG TABLET PO SCH (06:56)
[2018-03-19] MEDS: NORMAL SALINE 1000 ML 1,000 ML IV PRN (06:58)
[2018-03-19 07:29] LABS: ANION GAP 9 (5-19); BLOOD UREA NITROGEN 16 mg/dL (7-20); CALCIUM 8.6 mg/dL (8.4-10.2); CARBON DIOXIDE 30 mmol/L (22-30); CHLORIDE 103 mmol/L (98-107); GLUCOSE 259 mg/dL (75-110); POTASSIUM 4.3 mmol/L (3.6-5.0); SODIUM 142.4 mmol/L (137-145)
[2018-03-19 07:39] LABS: HEMATOCRIT 26.6 % (36.0-47.0); HEMOGLOBIN 8.9 g/dL (12.0-15.5); MEAN CORPUSCULAR HGB CONC 33.4 g/dL (32.0-36.0); MEAN CORPUSCULAR VOLUME 96 fl (80-97); PLATELET COUNT 150 10^3/uL (150-450); RED BLOOD COUNT 2.78 10^6/uL (3.72-5.28); RED CELL DISTRIBUTION WIDTH 16.6 % (11.5-14.0); WHITE BLOOD COUNT 6.5 10^3/uL (4.0-10.5)
--- NOTE | 2018-03-19 07:45 | EKG REPORT ---
SEVERITY:- ABNORMAL ECG - SINUS TACHYCARDIA MULTIPLE ATRIAL PREMATURE COMPLEXES RIGHT BUNDLE BRANCH BLOCK : Confirmed by: Mercedes Solomon 19-Mar-2018 07:44:30
[2018-03-19] MEDS: INSULIN REG, HUMAN 100 UNIT/ML 3 ML VIAL (PYX) SUBCUT PRN ×2 (08:42→22:49)
[2018-03-19 09:02] LABS: ABSOLUTE LYMPHOCYTES# (MANUAL) 0.1 10^3/uL (0.5-4.7); ABSOLUTE MONOCYTES # (MANUAL) 0.3 10^3/uL (0.1-1.4); BASOPHILS % (MANUAL) 0 % (0-2); EOSINOPHILS % (MANUAL) 0 % (0-6); LYMPHOCYTES % (MANUAL) 2 % (13-45); MONOCYTES % (MANUAL) 5 % (3-13); SEGMENTED NEUTROPHILS % (MAN) 93 % (42-78); TOTAL CELLS COUNTED 100
[2018-03-19 09:10] LABS: ANISOCYTOSIS 2+; HYPOCHROMASIA 2+; OVALOCYTES SLIGHT; PLATELET COMMENT ADEQUATE; POIKILOCYTOSIS SLIGHT; ROULEAUX SLIGHT; TEAR DROP CELLS SLIGHT
[2018-03-19] MEDS ORDERED: (PENDING PHARMACY ID) (Lactulose [Enulose 10 Gm/15 Ml Oral Solution] 30 ML) PO SCH (10:00)
[2018-03-19] MEDS: FAMOTIDINE 20 MG TABLET PO SCH ×2 (10:08→21:09)
[2018-03-19] MEDS: LACTULOSE SYRUP 20 GM/30 ML UDCUP PO SCH (10:08)
[2018-03-19] MEDS: LISINOPRIL 5 MG TABLET PO SCH (10:08)
[2018-03-19] MEDS: FUROSEMIDE 40 MG TABLET PO SCH (10:08)
[2018-03-19] MEDS: DOCUSATE SODIUM 100 MG CAPSULE PO SCH ×2 (10:08→17:25)
[2018-03-19] MEDS: ROFLUMILAST 500 MCG TABLET PO SCH (10:09)
[2018-03-19] MEDS: ENOXAPARIN SODIUM INJ 40 MG/0.4 ML DISP.SYRIN SUBCUT SCH (10:10)
[2018-03-19] MEDS: METHYLPREDNISOLONE INJ 125 MG/2 ML SDV IV SCH ×2 (10:10→21:08)
[2018-03-19] MEDS: TIOTROPIUM BROMIDE DPI 5 CAP/KIT (18 MCG/CAP) IH SCH (10:11)
[2018-03-19] MEDS ORDERED: FUROSEMIDE 40 MG TABLET PO ONE (12:07)
[2018-03-19 13:58] LABS: ARTERIAL BLOOD BASE EXCESS 6.6 mmol/L; ARTERIAL BLOOD H2CO3 1.53 mmol/L (1.05-1.35); ARTERIAL BLOOD HCO3 32.4 mmol/L (20-26); ARTERIAL BLOOD O2 SATURATION 97.4 % (94-98); ARTERIAL BLOOD PCO2 50.7 mmHg (35-45); ARTERIAL BLOOD PH 7.42 (7.35-7.45)
[2018-03-19] MEDS ORDERED: ONDANSETRON HCL INJ/PF 4 MG/2 ML SDV IV PRN (14:00)
[2018-03-19 14:34] LABS: ARTERIAL BLOOD FIO2 2L
--- NOTE | 2018-03-19 14:53 | RADIOLOGY REPORT (SQ) ---
EXAM DESCRIPTION: CHEST SINGLE VIEW COMPLETED DATE/TIME: 03/19/2018 2:25 pm REASON FOR STUDY: dyspnea, crackles COMPARISON: 03/18/2018 EXAM PARAMETERS: NUMBER OF VIEWS: One view. TECHNIQUE: Single frontal radiographic view of the chest acquired. RADIATION DOSE: NA LIMITATIONS: None. FINDINGS: LUNGS AND PLEURA: Minimal pleural effusions, decreased on the right. Chronic right perihi lar scarring. MEDIASTINUM AND HILAR STRUCTURES: No masses. Contour normal. HEART AND VASCULAR STRUCTURES: Heart normal in size. Normal vasculature. BONES: No acute findings. HARDWARE: None in the chest. OTHER: No other significant finding. IMPRESSION: Small pleural effusions with the right improved since the prior study. No acute infiltr ate. No mass. TECHNICAL DOCUMENTATION: JOB ID: [id number] [employer]- All Rights Reserved Reading location - IP/workstation name: [email or web address]
[2018-03-19] MEDS: CEFEPIME 1 GM/D5W RTU 1 GM/50 ML RTUPB IV SCH ×2 (16:17→21:08)
[2018-03-19 16:35] LABS: APPEARANCE,URINE CLOUDY; BILIRUBIN,URINE NEGATIVE (NEGATIVE); COLOR,URINE YELLOW; GLUCOSE, URINE NEGATIVE (NEGATIVE); KETONES,URINE NEGATIVE (NEGATIVE); LEUKOCYTE ESTERASE,URINE SMALL (NEGATIVE); NITRITE,URINE NEGATIVE (NEGATIVE); PROTEIN,URINE NEGATIVE (NEGATIVE); UROBILINOGEN,URINE NEGATIVE mg/dL (<2.0)
--- NOTE | 2018-03-19 16:39 | PDOC H&P ---
History of Present Illness Admission Date/PCP: 03/18/18 08:07 ARASELI AGUILAR MD Patient complains of: Shortness of breath History of Present Illness: TRENTON MCCOY is a 72 year old female with a past medical history of COPD, hypertension, diastolic heart failure, CAD, and hyperlipidemia, who presented to the ED via EMS complaining of shortness of breath and chest pain with generalized weakness. Unfortunately there are no family members at bedside to give me a history. She herself is a very poor historian and unable to tell me accurate history. I went into the room she was very sleepy and just did not want to open her eyes. States she is very tired as she has not slept so well. States she has been feeling some shortness of breath with some chest pain for a day or so. States that she is not sure who called EMS but they brought her here. States she lives at home and gets home health to help her out. Most of her information is retrieved from patient history and EMR. Looking back into her chart she is being admitted to the hospital multiple occasions in the last 6 months and most of the time it is for COPD exacerbation and pneumonia. She was just admitted to the hospital a week ago and discharged after urinary tract infection and COPD exacerbation. She was just treated with IV antibiotics. Patient does have a wound on her left arm as per nursing and I am told that physical therapy at home was trying to work with her but as she became unbalanced they try to catch her from falling and grabbed her left arm which led to a skin tear and now it is painful. Otherwise patient denies fever/chills , abdominal pain, nausea/vomiting, dysuria, headache, dizziness or visual disturbances. She admits to feeling tired overall. Past Medical History Cardiac Medical History: Reports: Congestive Heart Failure, Coronary Artery Disease, Myocardial Infarction, Hypertension Denies: DVT, Hyperlipidema, Pulmonary Embolism Pulmonary Medical History: Reports: Asthma, Bronchitis, Chronic Obstructive Pulmonary Disease (COPD) - 2 L nasal home oxygen, Pneumonia, Respiratory Failure - Chronic respiratory failure Denies: Sleep Apnea, Tuberculosis Neurological Medical History: Denies: Seizures Endocrine Medical History: Reports: Diabetes Mellitus Type 2, Hypothyroidism Denies: Diabetes Mellitus Type 1, Hyperthyroidism Renal/ Medical History: Denies: End Stage Renal Disease Malignancy Medical History: Reports: Brain Cancer - Lung cancer with brain metastases, 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 GI Medical History: Reports: Gastroesophageal Reflux Disease Denies: Cirrhosis, Hepatitis Musculoskeltal Medical History: Reports: Arthritis Psychiatric Medical History: Reports: Dementia, Depression Denies: Bipolar Disorder Hematology: Reports: Anemia, Bleeding Tendencies Infectious Medical History: Reports: Clostridium Difficile Past Surgical History Past Surgical History: Reports: Cholecystectomy, Orthopedic Surgery - Foot surgery, Other - cataract bilateral Social History Lives with: Family Smoking Status: Current Every Day Smoker Frequency of Alcohol Use: None Hx Recreational Drug Use: No Drugs: None Hx Prescription Drug Abuse: No - Advance Directive Resuscitation Status: Full Code Family History Family History: COPD, Malignancy - Lung cancer Parental Family History Reviewed: Yes Children Family History Reviewed: Unknown Sibling(s) Family History Reviewed.: Unknown Medication/Allergy Home Medications: Albuterol Sulfate [Proair HFA Inhalation Aerosol 8.5 gm MDI] 2 puff IH Q6HP PRN 03/04/18 Furosemide [Lasix 40 mg Tablet] 40 mg PO DAILY 03/04/18 Glimepiride [Amaryl 1 mg Tablet] 1 mg PO DAILY 03/04/18 Hydrocodone Bit/Acetaminophen [Hydrocodon-Acetaminophen 5-325] 1 tab PO Q8HP PRN 03/04/18 Ipratropium/Albuterol Sulfate [Iprat-Albut 0.5-3(2.5) mg/3 ml] 3 ml NEB Q6 03/04 Lactulose [Enulose 10 gm/15 mL Oral Solution] 30 ml PO DAILY 03/04/18 Levalbuterol HCl [Xopenex Neb 1.25 mg/3 ml Ampul] 1.25 mg NEB Q4HP PRN 03/04/18 Levothyroxine Sodium [Synthroid 0.088 mg Tablet] 0.088 mg PO Q6AM 03/04/18 Lisinopril [Prinivil 5 mg Tablet] 5 mg PO DAILY 03/04/18 Metformin HCl [Metformin HCl ER] 500 mg PO BID 03/04/18 Pantoprazole Sodium [Protonix] 40 mg PO DAILY 03/04/18 Sertraline HCl [Zoloft 50 mg Tablet] 50 mg PO DAILY 03/04/18 Tiotropium [place] [Spiriva Handihaler 5 Cap/Kit (18 Mcg/Cap)] 1 puff IH DAILY 03/04/18 Tramadol HCl [Ultram 50 mg Tablet] 50 mg PO Q12HP PRN 03/04/18 Nystatin/Triamcin [Mycolog-II Cream 15 gm] 1 applic TP Q6HP PRN #1 tube Prednisone 20 mg PO DAILY #13 tablet 03/08/18 Roflumilast [Daliresp 500 Mcg Tablet] 250 mcg PO DAILY #30 tablet 03/08/18 Allergies/Adverse Reactions: azithromycin Allergy (Verified 03/11/18 14:07) amoxicillin [Amoxicillin] Adverse Reaction (Verified 03/11/18 14:07) visual hallucinations erythromycin base [Erythromycin Base] Adverse Reaction (Verified 03/11/18 14:07) visual hallucinations Potassium Clavulanate * [From Augmentin] Adverse Reaction (Verified 03/11/18 14: 07) visual hallucinations Review of Systems All systems: reviewed and no additional remarkable complaints except as stated Constitutional: ABSENT: chills, fever(s) Eyes: ABSENT: visual disturbances Ears: ABSENT: hearing changes Cardiovascular: PRESENT: chest pain - When coughing mostly, dyspnea on exertion Respiratory: PRESENT: cough - Shortness of breath Gastrointestinal: ABSENT: abdominal pain, nausea, vomiting Musculoskeletal: PRESENT: other - Left arm wound Neurological: PRESENT: weakness - Generalized Physical Exam Vital Signs: Temp Pulse Resp BP Pulse Ox 98.0 F 115 H 16 100/53 L 100 03/18/18 03:51 03/18/18 01:53 03/18/18 09:01 03/18/18 09:01 03/18/18 09:01 General appearance: PRESENT: no acute distress, obese Head exam: PRESENT: atraumatic, normocephalic Eye exam: PRESENT: EOMI, PERRLA. ABSENT: scleral icterus Ear exam: PRESENT: normal external ear exam Teeth exam: PRESENT: poor dentation Neck exam: ABSENT: tracheal deviation Respiratory exam: PRESENT: decreased breath sounds - Diminished breath sounds in all lung curtis, rhonchi - Occasional rhonchi at the bases, symmetrical, wheezes - Bilateral lung curtis expiratory wheezing Cardiovascular exam: PRESENT: +S1, +S2 Pulses: PRESENT: +2 pedal pulses bilateral GI/Abdominal exam: PRESENT: normal bowel sounds, soft. ABSENT: tenderness Extremities exam: ABSENT: joint swelling, pedal edema Musculoskeletal exam: PRESENT: tenderness - Left upper arm lateral aspect-wound noted with some granulation tissue around, minimal erythema surrounding wound- tender to palpation Neurological exam: PRESENT: alert, oriented to person, oriented to place, CN II- XII grossly intact Skin exam: PRESENT: warm, other - Right upper arm ecchymosis noted. ABSENT: jaundice Results Impressions: Chest X-Ray 03/18/18 01:45 IMPRESSION: Worsening includes a small right basilar opacity-effusion. Assessment & Plan - Diagnosis (1) COPD with exacerbation Is this a current diagnosis for this admission?: Yes Plan: I think her chest pain and shortness of breath is due to her COPD exacerbation. She is currently on prednisone 20 mg daily. I will increase that dose to Solu -Medrol IV 60 mg twice daily while in the hospital but she probably will need to be on low-dose steroids at home for continued maintenance of her COPD. She will probably need a good pulmonology follow-up after discharge. At this time will continue all her inhalers and nebulizers but we will increase her duo nebs to every 6 hours. Aggressive pulmonary hygiene with incentive spirometry and pep therapy. We will consult respiratory for further evaluation and care of her COPD. (2) Left arm cellulitis Is this a current diagnosis for this admission?: Yes Plan: There is a left upper arm wound noted with some surrounding erythema and tender to palpation. She does not have a white count at this time and I do not think she is septic at this point. We did get blood cultures and we will follow. She did receive some IV antibiotics in the ED and at this point will continue with cefepime IV. Unfortunately this patient has received multiple doses of antibiotics in multiple admissions this year. (3) CHF (congestive heart failure) Qualifiers: Heart failure type: diastolic Heart failure chronicity: chronic Qualified Code(s): I50.32 - Chronic diastolic (congestive) heart failure Is this a current diagnosis for this admission?: Yes Plan: Stable-I do not think she is in heart failure right now. Her last echo showed preserved ejection fraction so likely she has diastolic heart failure. We will continue with her home medication of Lasix. (4) Chronic back pain Qualifiers: Back pain location: low back pain Back pain laterality: unspecified Is this a current diagnosis for this admission?: Yes Plan: Stable continue with pain control. (5) Coronary artery disease Qualifiers: Coronary Disease-Associated Artery/Lesion type: venetie artery Is this a current diagnosis for this admission?: Yes Plan: Stable at this time but she did complain of chest pain-I think it is due to her COPD exacerbation more so than anything. In the ED she did receive some nitro and doing about the same time and her pain was better. It is difficult to tell whether this was cardiac or pulmonology related. We will keep an eye on her for now and continue with COPD exacerbation management and therapy. Nitrostat as needed. Troponins are trending down. (6) Dementia Is this a current diagnosis for this admission?: Yes Plan: Stable and she is able to tell me her name and date of along with the fact that she is in [facility]. She was unsure about the time and date. I am not sure if this is her baseline. (7) Diabetes mellitus type 2 in obese Is this a current diagnosis for this admission?: Yes Plan: Stable, continue with home medication and sliding scale insulin here in the hospital
--- NOTE | 2018-03-19 19:23 | PDOC PROGRESS REPORT ---
Subjective Progress Note for:: 03/19/18 Reason For Visit: COPD EXAC,CELLULITIS OF L ARM Physical Exam Vital Signs: Temp Pulse Resp BP Pulse Ox 98.3 F 114 H 18 125/68 100 03/19/18 16:00 03/19/18 16:00 03/19/18 16:00 03/19/18 16:00 03/19/18 16:00 Intake & Output 03/18/18 03/19/18 03/20/18 06:59 06:59 06:59 Intake Total 2572 1642 Balance 2572 1642 Weight 88 kg General appearance: PRESENT: no acute distress, cooperative, obese, well- developed Head exam: PRESENT: atraumatic, normocephalic Eye exam: PRESENT: conjunctiva pink, EOMI, PERRLA. ABSENT: scleral icterus Ear exam: PRESENT: normal external ear exam Mouth exam: PRESENT: moist, tongue midline Teeth exam: PRESENT: edentulous Neck exam: ABSENT: carotid bruit, JVD, lymphadenopathy, thyromegaly Respiratory exam: PRESENT: decreased breath sounds, prolonged expiratory phas, rhonchi, wheezes. ABSENT: rales, tachypnea Cardiovascular exam: PRESENT: RRR, tachycardia. ABSENT: diastolic murmur, rubs , systolic murmur Pulses: PRESENT: normal dorsalis pedis pul Vascular exam: PRESENT: normal capillary refill GI/Abdominal exam: PRESENT: normal bowel sounds, soft. ABSENT: distended, guarding, mass, organolmegaly, rebound, tenderness Rectal exam: PRESENT: deferred Extremities exam: PRESENT: full ROM, +1 edema - pitting bilateral upper/lower extremities. ABSENT: calf tenderness, clubbing, pedal edema Neurological exam: PRESENT: alert, awake, oriented to person, oriented to place , oriented to time, oriented to situation, CN II-XII grossly intact, other - Intermittent confusion. ABSENT: motor sensory deficit Psychiatric exam: PRESENT: appropriate affect, normal mood. ABSENT: homicidal ideation, suicidal ideation Skin exam: PRESENT: dry, intact, warm. ABSENT: cyanosis, rash Results Laboratory Results: 03/19/18 06:47 03/19/18 06:47 03/19/18 03/19/18 03/19/18 06:47 06:47 13:30 WBC 6.5 RBC 2.78 L Hgb 8.9 L Hct 26.6 L MCV 96 MCH 32.0 MCHC 33.4 RDW 16.6 H Plt Count 150 Seg Neutrophils % Not Reportable Lymphocytes % Not Reportable Monocytes % Not Reportable Eosinophils % Not Reportable Basophils % Not Reportable Absolute Neutrophils Not Reportable Absolute Lymphocytes Not Reportable Absolute Monocytes Not Reportable Absolute Eosinophils Not Reportable Absolute Basophils Not Reportable Carbonic Acid 1.53 H HCO3/H2CO3 Ratio 21:1 ABG pH 7.42 ABG pCO2 50.7 H ABG pO2 97.0 ABG HCO3 32.4 H ABG O2 Saturation 97.4 ABG Base Excess 6.6 FiO2 2L Sodium 142.4 Potassium 4.3 Chloride 103 Carbon Dioxide 30 Anion Gap 9 BUN 16 Creatinine 0.85 Est GFR ( Amer) > 60 Est GFR (Non-Af Amer) > 60 Glucose 259 H Calcium 8.6 Magnesium 1.9 Urine Color Urine Appearance Urine pH Ur Specific [place] Urine Protein Urine Glucose (UA) Urine Ketones Urine Blood Urine Nitrite Ur Leukocyte Esterase Urine WBC (Auto) Urine RBC (Auto) 03/19/18 16:00 WBC RBC Hgb Hct MCV MCH MCHC RDW Plt Count Seg Neutrophils % Lymphocytes % Monocytes % Eosinophils % Basophils % Absolute Neutrophils Absolute Lymphocytes Absolute Monocytes Absolute Eosinophils Absolute Basophils Carbonic Acid HCO3/H2CO3 Ratio ABG pH ABG pCO2 ABG pO2 ABG HCO3 ABG O2 Saturation ABG Base Excess FiO2 Sodium Potassium Chloride Carbon Dioxide Anion Gap BUN Creatinine Est GFR ( Amer) Est GFR (Non-Af Amer) Glucose Calcium Magnesium Urine Color YELLOW Urine Appearance CLOUDY Urine pH 6.0 Ur Specific [place] 1.010 Urine Protein NEGATIVE Urine Glucose (UA) NEGATIVE Urine Ketones NEGATIVE Urine Blood SMALL H Urine Nitrite NEGATIVE Ur Leukocyte Esterase SMALL H Urine WBC (Auto) 8 Urine RBC (Auto) 12 03/18/18 03/18/18 03/19/18 11:41 17:30 06:47 Troponin I 0.056 0.042 NT-Pro-B Natriuret Pep 1680 H Impressions: Chest X-Ray 03/19/18 00:00 IMPRESSION: Small pleural effusions with the right improved since the prior study. No acute infiltrate. No mass. Assessment & Plan - Diagnosis (1) COPD exacerbation Is this a current diagnosis for this admission?: Yes Plan: The patient is admitted with a COPD exacerbation. On exam she is noted to have continued expiratory and expiratory wheezing with rhonchi.. Her home medications are continued. She is placed on supplemental oxygen as needed to maintain oxygen saturations of 88%. She is provided as scheduled and as needed nebulizer treatments. We will continue Solu-Medrol 60 mg every 12 hours. Every 2 turns, encouraged her cuff deep breathing. Incentive spirometry and flutter valve to bedside. ABG this morning is reassuring; at her baseline oxygen and hypercapnia status. BiPAP as needed. (2) Left arm cellulitis Is this a current diagnosis for this admission?: Yes Plan: Large left upper arm skin tear with erythema. Blood cultures have no growth at 24 hours. Continue IV cefepime. Consider early transition to p.o. antibiotics as she remains afebrile with a normal white count. (3) CHF (congestive heart failure) Qualifiers: Heart failure type: diastolic Heart failure chronicity: acute on chronic Qualified Code(s): I50.33 - Acute on chronic diastolic (congestive) heart failure Is this a current diagnosis for this admission?: Yes Plan: Acute on chronic diastolic CHF evidenced by bilateral upper and lower extremity pitting edema and adventitious lung sounds. ProBNP elevated to greater than 1900 Previous echocardiogram revealed a preserved ejection fraction. IV fluids are discontinued. Her home dose for most furosemide increased from 40 to 80 mg daily. Continue to trend daily weights. Cardiac diet. Strict I&O's. (4) Diabetes mellitus type 2 in obese Is this a current diagnosis for this admission?: Yes Plan: Holding oral antidiabetic's while inpatient. The patient is placed on a consistent carb diet. Accu-Cheks before meals and at bedtime with Humalog for sliding scale coverage. - Time Time Spent with patient: 35 or more minutes Medications reviewed and adjusted accordingly: Yes
[2018-03-19] MEDS: SERTRALINE HCL 50 MG TABLET PO SCH (21:09)
[2018-03-19] MEDS: HYDROCODONE/ACETAMINOPHEN 5-325 MG TABLET PO PRN (23:51)
[2018-03-20] MEDS: IPRATROPIUM/ALBUTEROL 0.5-2.5 MG/3 ML AMPUL NEB SCH ×5 (01:28→23:43)
[2018-03-20] MEDS: LEVOTHYROXINE SODIUM 0.088 MG TABLET PO SCH (05:22)
[2018-03-20 05:45] LABS: HEMATOCRIT 24.2 % (36.0-47.0); HEMOGLOBIN 8.3 g/dL (12.0-15.5); MEAN CORPUSCULAR HEMOGLOBIN 32.6 pg (27.0-33.4); MEAN CORPUSCULAR HGB CONC 34.1 g/dL (32.0-36.0); MEAN CORPUSCULAR VOLUME 96 fl (80-97); PLATELET COUNT 150 10^3/uL (150-450); RED BLOOD COUNT 2.54 10^6/uL (3.72-5.28); RED CELL DISTRIBUTION WIDTH 16.7 % (11.5-14.0); WHITE BLOOD COUNT 7.8 10^3/uL (4.0-10.5)
[2018-03-20 06:02] LABS: ALANINE AMINOTRANSFERASE 25 U/L (9-52); ALBUMIN 2.9 g/dL (3.5-5.0); ALKALINE PHOSPHATASE 46 U/L (38-126); ANION GAP 7 (5-19); ASPARTATE AMINO TRANSFERASE 12 U/L (14-36); BILIRUBIN,DIRECT 0.2 mg/dL (0.0-0.4); BILIRUBIN,TOTAL 0.2 mg/dL (0.2-1.3); BLOOD UREA NITROGEN 18 mg/dL (7-20); CALCIUM 8.4 mg/dL (8.4-10.2); CARBON DIOXIDE 34 mmol/L (22-30); CHLORIDE 100 mmol/L (98-107); GLUCOSE 178 mg/dL (75-110); POTASSIUM 3.4 mmol/L (3.6-5.0); SODIUM 141.4 mmol/L (137-145); TOTAL PROTEIN 5.3 g/dL (6.3-8.2)
[2018-03-20 06:33] LABS: ABSOLUTE LYMPHOCYTES# (MANUAL) 0.2 10^3/uL (0.5-4.7); ABSOLUTE MONOCYTES # (MANUAL) 0.2 10^3/uL (0.1-1.4); ABSOLUTE NEUTROPHILS# (MANUAL) 7.4 10^3/uL (1.7-8.2); BASOPHILS % (MANUAL) 0 % (0-2); EOSINOPHILS % (MANUAL) 0 % (0-6); LYMPHOCYTES % (MANUAL) 3 % (13-45); MONOCYTES % (MANUAL) 2 % (3-13); SEGMENTED NEUTROPHILS % (MAN) 95 % (42-78); TOTAL CELLS COUNTED 100
[2018-03-20 06:34] LABS: ANISOCYTOSIS SLIGHT; HYPOCHROMASIA SLIGHT; POLYCHROMASIA SLIGHT
[2018-03-20 06:35] LABS: PLATELET COMMENT ADEQUATE; ROULEAUX SLIGHT
[2018-03-20] MEDS ORDERED: FUROSEMIDE 40 MG TABLET PO SCH (10:00)
[2018-03-20] MEDS: LISINOPRIL 5 MG TABLET PO SCH (10:05)
[2018-03-20] MEDS: FAMOTIDINE 20 MG TABLET PO SCH ×2 (10:05→21:48)
[2018-03-20] MEDS: DOCUSATE SODIUM 100 MG CAPSULE PO SCH ×2 (10:05→17:14)
[2018-03-20] MEDS: FUROSEMIDE 80 MG TABLET PO SCH (10:06)
[2018-03-20] MEDS: ROFLUMILAST 500 MCG TABLET PO SCH (10:06)
[2018-03-20] MEDS: LACTULOSE SYRUP 20 GM/30 ML UDCUP PO SCH (10:06)
[2018-03-20] MEDS: ENOXAPARIN SODIUM INJ 40 MG/0.4 ML DISP.SYRIN SUBCUT SCH (10:07)
[2018-03-20] MEDS: METHYLPREDNISOLONE INJ 125 MG/2 ML SDV IV SCH ×2 (10:07→21:21)
[2018-03-20] MEDS: TIOTROPIUM BROMIDE DPI 5 CAP/KIT (18 MCG/CAP) IH SCH (10:08)
[2018-03-20] MEDS: CEFEPIME 1 GM/D5W RTU 1 GM/50 ML RTUPB IV SCH (10:10)
[2018-03-20] MEDS ORDERED: LEVALBUTEROL HCL NEB 1.25 MG/3 ML AMPUL NEB PRN (18:07)
--- NOTE | 2018-03-20 18:26 | PDOC PROGRESS REPORT ---
Subjective Progress Note for:: 03/20/18 Subjective:: 72-year-old female with extensive history including CHF, CAD, ND, HTN, asthma, COPD (home O2 dependent, chronic respiratory failure), DM 2, hypothyroidism, CKD , GERD, arthritis, dementia, depression, anemia and lung cancer with brain metastasis who is well-known to the hospitalist service admitted 03/18/2018 for a COPD exacerbation. Of note, the patient was recently discharged from [facility] on for a COPD exacerbation and UTI. The patient is seen this afternoon on rounds. She is resting comfortably in bed on room air. The patient states that she feels mildly short of breath. Upon assessment, the patient is oriented to self, place and time but she does not fully understand why she is in the hospital. Wheezing can be auscultated in all lung curtis. S1-S2. Trace edema in the lower extremities. Palpable pulses in all 4 extremities. The patient is able to speak in full sentences without pause. Plan to increase frequency of IV steroids and nebulizer treatments. Reason For Visit: COPD EXAC,CELLULITIS OF L ARM Physical Exam Vital Signs: Temp Pulse Resp BP Pulse Ox 98.8 F 124 H 18 127/67 H 98 03/20/18 12:00 03/20/18 14:00 03/20/18 13:05 03/20/18 12:00 03/20/18 16:00 Intake & Output 03/19/18 03/20/18 03/21/18 06:59 06:59 06:59 Intake Total 2572 1692 789 Balance 2572 1692 789 Weight 88 kg General appearance: PRESENT: no acute distress Head exam: PRESENT: atraumatic Eye exam: PRESENT: conjunctiva pink, PERRLA Mouth exam: PRESENT: moist, tongue midline Neck exam: PRESENT: full ROM Respiratory exam: PRESENT: symmetrical, unlabored, wheezes Cardiovascular exam: PRESENT: +S1, +S2 Pulses: PRESENT: normal radial pulses, normal dorsalis pedis pul GI/Abdominal exam: PRESENT: normal bowel sounds, soft. ABSENT: tenderness Rectal exam: PRESENT: deferred Extremities exam: PRESENT: full ROM, pedal edema, +1 edema Musculoskeletal exam: PRESENT: ambulatory - With assistance, full ROM Neurological exam: PRESENT: alert, awake, oriented to person, oriented to place , oriented to time. ABSENT: oriented to situation Psychiatric exam: PRESENT: normal mood Skin exam: PRESENT: dry, intact, normal color, other - Areas of bruising with different stages of healing to both arms Results Laboratory Results: 03/20/18 05:24 03/20/18 05:24 03/20/18 03/20/18 05:24 05:24 WBC 7.8 RBC 2.54 L Hgb 8.3 L Hct 24.2 L MCV 96 MCH 32.6 MCHC 34.1 RDW 16.7 H Plt Count 150 Seg Neutrophils % Not Reportable Lymphocytes % Not Reportable Monocytes % Not Reportable Eosinophils % Not Reportable Basophils % Not Reportable Absolute Neutrophils Not Reportable Absolute Lymphocytes Not Reportable Absolute Monocytes Not Reportable Absolute Eosinophils Not Reportable Absolute Basophils Not Reportable Sodium 141.4 Potassium 3.4 L Chloride 100 Carbon Dioxide 34 H Anion Gap 7 BUN 18 Creatinine 0.79 Est GFR ( Amer) > 60 Est GFR (Non-Af Amer) > 60 Glucose 178 H Calcium 8.4 Total Bilirubin 0.2 AST 12 L ALT 25 Alkaline Phosphatase 46 Total Protein 5.3 L Albumin 2.9 L 03/18/18 03/18/18 03/19/18 11:41 17:30 06:47 Troponin I 0.056 0.042 NT-Pro-B Natriuret Pep 1680 H 03/20/18 05:24 Troponin I NT-Pro-B Natriuret Pep 2730 H Impressions: Chest X-Ray 03/19/18 00:00 IMPRESSION: Small pleural effusions with the right improved since the prior study. No acute infiltrate. No mass. Status: Imported from PACS Assessment & Plan - Diagnosis (1) COPD (chronic obstructive pulmonary disease) Qualifiers: COPD type: unspecified COPD Qualified Code(s): J44.9 - Chronic obstructive pulmonary disease, unspecified Is this a current diagnosis for this admission?: Yes Plan: Patient admitted to [facility] with COPD exacerbation Expiratory wheezing in all lung curtis Home COPD medications are continued Scheduled and as needed nebulizer treatments, increased frequency of scheduled duo nebs from every 6 hours to every 4 hours Continue IV Solu-Medrol, increase frequency from every 12 hours to every 6 hours IS and flutter valve at bedside (2) CHF (congestive heart failure) Qualifiers: Heart failure type: diastolic Heart failure chronicity: acute on chronic Qualified Code(s): I50.33 - Acute on chronic diastolic (congestive) heart failure Is this a current diagnosis for this admission?: Yes Plan: Acute on chronic diastolic CHF peripheral pitting edema and adventitious breath sounds ProBNP increased from 1900->2700 today Previous echocardiogram demonstrates preserved LVEF Continue daily p.o. furosemide 80 mg, one time dose of 20mg IV today Daily weights Cardiac diet Strict I's and O's (3) Diabetes Qualifiers: Diabetes mellitus type: type 2 Is this a current diagnosis for this admission?: Yes Plan: Accu-Cheks before meals at bedtime Humalog for sliding scale coverage Oral antidiabetics on hold while inpatient (4) Left arm cellulitis Is this a current diagnosis for this admission?: Yes Plan: Left upper arm skin tear with erythema Blood cultures no growth at 48 hours Patient remains afebrile and nontoxic-appearing Discontinue IV cefepime Topical bacitracin and daily wound care per nursing - Time Time Spent with patient: 15-24 minutes Medications reviewed and adjusted accordingly: Yes Anticipated discharge: Home Within: within 48 hours - Inpatient Certification Based on my medical assessment, after consideration of the patient's comorbidities, presenting symptoms, or acuity I expect that the services needed warrant INPATIENT care.: Yes I certify that my determination is in accordance with my understanding of Medicare's requirements for reasonable and necessary INPATIENT services [42 CFR 412.3e].: Yes Medical Necessity: Risk of Complication if Not Cared For in Hospital
[2018-03-20] MEDS: BACITRACIN ZINC OINTMENT 15 GM TP SCH (21:20)
[2018-03-20] MEDS: SERTRALINE HCL 50 MG TABLET PO SCH (21:21)
[2018-03-20] MEDS: INSULIN REG, HUMAN 100 UNIT/ML 3 ML VIAL (PYX) SUBCUT PRN (21:25)
[2018-03-21] MEDS: IPRATROPIUM/ALBUTEROL 0.5-2.5 MG/3 ML AMPUL NEB SCH ×6 (05:05→23:42)
[2018-03-21] MEDS: LEVOTHYROXINE SODIUM 0.088 MG TABLET PO SCH (05:10)
[2018-03-21] MEDS: METHYLPREDNISOLONE INJ 125 MG/2 ML SDV IV SCH ×3 (05:10→22:41)
[2018-03-21] MEDS: POLYETHYLENE GLYCOL 3350 POWDER 17 GM/1 PACKET PO SCH (11:57)
[2018-03-21] MEDS: FUROSEMIDE 80 MG TABLET PO SCH (11:57)
[2018-03-21] MEDS: ROFLUMILAST 500 MCG TABLET PO SCH (11:57)
[2018-03-21] MEDS: FAMOTIDINE 20 MG TABLET PO SCH ×2 (11:58→23:56)
[2018-03-21] MEDS: LISINOPRIL 5 MG TABLET PO SCH (11:58)
[2018-03-21] MEDS: BACITRACIN ZINC OINTMENT 15 GM TP SCH (11:58)
[2018-03-21] MEDS: TIOTROPIUM BROMIDE DPI 5 CAP/KIT (18 MCG/CAP) IH SCH (11:58)
[2018-03-21] MEDS: LACTULOSE SYRUP 20 GM/30 ML UDCUP PO SCH (11:59)
[2018-03-21] MEDS: ENOXAPARIN SODIUM INJ 40 MG/0.4 ML DISP.SYRIN SUBCUT SCH (12:00)
--- NOTE | 2018-03-21 12:26 | RADIOLOGY REPORT (SQ) ---
EXAM DESCRIPTION: KUB/ABDOMEN (SINGLE VIEW) COMPLETED DATE/TIME: 03/21/2018 12:02 pm REASON FOR STUDY: RUQ RLQ abdominal pain COMPARISON: 07/26/2017 NUMBER OF VIEWS: One view. TECHNIQUE: Supine radiographic image of the abdomen acquired. LIMITATIONS: None. FINDINGS: BOWEL GAS PATTERN: Normal bowel gas pattern. No dilated loops. CALCIFICATIONS: No suspicious calcifications. SOFT TISSUES: No gross mass or suggestion of organomegaly. HARDWARE: Clips right upper quadrant. BONES: No bone lesions or fracture. OTHER: No other significant finding. IMPRESSION: NO RADIOGRAPHIC EVIDENCE FOR ACUTE ABDOMINAL DISEASE. Reading location - IP/workstation name: [email or web address]
[2018-03-21] MEDS: SENNOSIDES/DOCUSATE 8.6-50 MG 1 EACH TABLET PO SCH ×2 (12:38→18:06)
[2018-03-21] MEDS: DOCUSATE SODIUM 100 MG CAPSULE PO SCH (12:52)
[2018-03-21] MEDS: SALMETEROL XINAFOATE DISKUS 50 MCG/1 DOSE 28 DOSE IH SCH ×2 (13:49→23:56)
--- NOTE | 2018-03-21 17:12 | PDOC PROGRESS REPORT ---
Subjective Progress Note for:: 03/21/18 Subjective:: 72-year-old female with extensive history including CHF, CAD, [place], HTN, asthma, COPD (home O2 dependent, chronic respiratory failure), DM 2, hypothyroidism, CKD , GERD, arthritis, dementia, depression, anemia and lung cancer with brain metastasis who is well-known to the hospitalist service admitted 03/18/2018 for a COPD exacerbation. Of note, the patient was [facility] for a COPD exacerbation and UTI. The patient is seen this afternoon on rounds. She is resting comfortably in bed on room air. The patient states that she feels mildly short of breath. Additionally, she complains of very mild RUQ and RLQ abdominal pain,(+) TTP. Upon assessment, the patient is oriented to self, place and time but she does not fully understand why she is in the hospital. Wheezing can be auscultated in all lung curtis. S1-S2. Trace edema in the lower extremities. Palpable pulses in all 4 extremities. The patient is able to speak in full sentences without pause. Nursing staff reports the patient has been coughing up a great deal of white thick mucus. Plan to increase frequency of nebulizer treatments, initiate IV antibiotics and p.o. Mucinex. Reason For Visit: COPD EXAC,CELLULITIS OF L ARM Physical Exam Vital Signs: Temp Pulse Resp BP Pulse Ox 98.5 F 110 H 18 129/55 H 100 03/21/18 15:59 03/21/18 16:18 03/21/18 16:18 03/21/18 15:59 03/21/18 16:18 Intake & Output 03/20/18 03/21/18 03/22/18 06:59 06:59 06:59 Intake Total 1692 907 Balance 1692 907 Weight 83.9 kg General appearance: PRESENT: no acute distress, well-developed Head exam: PRESENT: atraumatic Eye exam: PRESENT: conjunctiva pink, PERRLA Mouth exam: PRESENT: neck supple Neck exam: PRESENT: full ROM. ABSENT: JVD Respiratory exam: PRESENT: symmetrical, unlabored, wheezes Cardiovascular exam: PRESENT: +S1, +S2 Pulses: PRESENT: normal radial pulses, normal dorsalis pedis pul GI/Abdominal exam: PRESENT: normal bowel sounds, soft, tenderness - RUQ and RLQ -very mild TTP. ABSENT: distended Rectal exam: PRESENT: deferred Extremities exam: PRESENT: full ROM Musculoskeletal exam: PRESENT: ambulatory - With assistance, full ROM Neurological exam: PRESENT: alert, awake, oriented to person, oriented to place , oriented to time. ABSENT: oriented to situation Psychiatric exam: PRESENT: appropriate affect Skin exam: PRESENT: intact, normal color, other - Large skin tear to upper LUE. Bruising to dorsal aspect of bilateral hands and forearms Results Laboratory Results: 03/20/18 05:24 03/20/18 05:24 03/19/18 16:00 Clean Catch Midstream Urine Culture - Final Enterococcus Faecalis(Group D) 03/18/18 03/18/18 03/19/18 11:41 17:30 06:47 Troponin I 0.056 0.042 NT-Pro-B Natriuret Pep 1680 H 03/20/18 05:24 Troponin I NT-Pro-B Natriuret Pep 2730 H Impressions: Chest X-Ray 03/19/18 00:00 IMPRESSION: Small pleural effusions with the right improved since the prior study. No acute infiltrate. No mass. KUB X-Ray 03/21/18 00:00 IMPRESSION: NO RADIOGRAPHIC EVIDENCE FOR ACUTE ABDOMINAL DISEASE. Status: Imported from PACS Assessment & Plan - Diagnosis (1) COPD (chronic obstructive pulmonary disease) Qualifiers: COPD type: unspecified COPD Qualified Code(s): J44.9 - Chronic obstructive pulmonary disease, unspecified Is this a current diagnosis for this admission?: Yes Plan: [facility] with COPD exacerbation Expiratory wheezing in all lung curtis Home COPD medications are continued, initiated Serevent IH Scheduled and as needed nebulizer treatments, increased frequency of scheduled duo nebs from every 6 hours to every 4 hours Continue IV Solu-Medrol, increase frequency from every 12 hours to every 6 hours IS and flutter valve at bedside Initiate twice daily Mucinex Initiate empiric antibiotic coverage with IV Levaquin in the setting of severe COPD exacerbation. Based on previous sputum cultures, the patient does not have a history of resistance to fluoroquinolones (2) CHF (congestive heart failure) Qualifiers: Heart failure type: diastolic Heart failure chronicity: acute on chronic Qualified Code(s): I50.33 - Acute on chronic diastolic (congestive) heart failure Is this a current diagnosis for this admission?: Yes Plan: Acute on chronic diastolic CHF peripheral pitting edema and adventitious breath sounds ProBNP increased from 1900->2700 Previous echocardiogram demonstrates preserved LVEF Continue daily p.o. furosemide 80 mg Daily weights Cardiac diet Strict I's and O's (3) Diabetes Qualifiers: Diabetes mellitus type: type 2 Is this a current diagnosis for this admission?: Yes Plan: Accu-Cheks before meals at bedtime Humalog for sliding scale coverage Oral antidiabetics on hold while inpatient (4) Left arm cellulitis Is this a current diagnosis for this admission?: Yes Plan: Left upper arm skin tear with erythema Blood cultures no growth Patient remains afebrile and nontoxic-appearing Topical bacitracin and daily wound care per nursing (5) Abdominal pain Qualifiers: Abdominal location: right lower quadrant Qualified Code(s): R10.31 - Right lower quadrant pain Is this a current diagnosis for this admission?: Yes Plan: Patient endorses mild RUQ and RLQ abdominal pain Mildly tender to palpation Patient states she is not sure when she passed her last bowel movement KUB obtained - reveals normal bowel gas pattern. No acute findings. Initiate daily MiraLAX and senna - Time Time Spent with patient: 15-24 minutes Medications reviewed and adjusted accordingly: Yes Anticipated discharge: Home Within: within 72 hours - Inpatient Certification Based on my medical assessment, after consideration of the patient's comorbidities, presenting symptoms, or acuity I expect that the services needed warrant INPATIENT care.: Yes I certify that my determination is in accordance with my understanding of Medicare's requirements for reasonable and necessary INPATIENT services [42 CFR 412.3e].: Yes Medical Necessity: Need for IV Antibiotics, Risk of Complication if Not Cared For in Hospital - Plan Summary Plan Summary: Initiate antibiotics. Initiate Mucinex.
[2018-03-21] MEDS: LEVOFLOXACIN 750 MG/D5W RTU 750 MG/150 ML RTUPB IV SCH (18:06)
[2018-03-21] MEDS: SERTRALINE HCL 50 MG TABLET PO SCH (22:42)
[2018-03-21] MEDS: GUAIFENESIN 600 MG TABLET.SA PO SCH (22:42)
[2018-03-21] MEDS: INSULIN REG, HUMAN 100 UNIT/ML 3 ML VIAL (PYX) SUBCUT PRN (22:44)
[2018-03-22] MEDS: IPRATROPIUM/ALBUTEROL 0.5-2.5 MG/3 ML AMPUL NEB SCH ×6 (03:57→20:40)
[2018-03-22] MEDS: METHYLPREDNISOLONE INJ 125 MG/2 ML SDV IV SCH ×3 (06:51→23:24)
[2018-03-22] MEDS: LEVOTHYROXINE SODIUM 0.088 MG TABLET PO SCH (06:51)
[2018-03-22] MEDS: POLYETHYLENE GLYCOL 3350 POWDER 17 GM/1 PACKET PO SCH (11:22)
[2018-03-22] MEDS: LACTULOSE SYRUP 20 GM/30 ML UDCUP PO SCH (11:22)
[2018-03-22] MEDS: SENNOSIDES/DOCUSATE 8.6-50 MG 1 EACH TABLET PO SCH ×2 (11:23→19:40)
[2018-03-22] MEDS: FAMOTIDINE 20 MG TABLET PO SCH ×2 (11:23→23:23)
[2018-03-22] MEDS: GUAIFENESIN 600 MG TABLET.SA PO SCH ×2 (11:24→23:23)
[2018-03-22] MEDS: LISINOPRIL 5 MG TABLET PO SCH (11:24)
[2018-03-22] MEDS: TIOTROPIUM BROMIDE DPI 5 CAP/KIT (18 MCG/CAP) IH SCH (11:24)
[2018-03-22] MEDS: BACITRACIN ZINC OINTMENT 15 GM TP SCH (11:24)
[2018-03-22] MEDS: ENOXAPARIN SODIUM INJ 40 MG/0.4 ML DISP.SYRIN SUBCUT SCH (11:25)
[2018-03-22] MEDS: FUROSEMIDE 80 MG TABLET PO SCH (11:25)
[2018-03-22] MEDS: ROFLUMILAST 500 MCG TABLET PO SCH (11:25)
[2018-03-22] MEDS: SALMETEROL XINAFOATE DISKUS 50 MCG/1 DOSE 28 DOSE IH SCH ×2 (11:25→23:23)
[2018-03-22 11:48] LABS: HEMATOCRIT 25.3 % (36.0-47.0); HEMOGLOBIN 8.5 g/dL (12.0-15.5); MEAN CORPUSCULAR HEMOGLOBIN 32.1 pg (27.0-33.4); MEAN CORPUSCULAR HGB CONC 33.5 g/dL (32.0-36.0); MEAN CORPUSCULAR VOLUME 96 fl (80-97); RED BLOOD COUNT 2.64 10^6/uL (3.72-5.28); RED CELL DISTRIBUTION WIDTH 16.6 % (11.5-14.0); WHITE BLOOD COUNT 6.3 10^3/uL (4.0-10.5)
[2018-03-22 11:52] LABS: ANION GAP 10 (5-19); BLOOD UREA NITROGEN 22 mg/dL (7-20); CALCIUM 8.9 mg/dL (8.4-10.2); CARBON DIOXIDE 36 mmol/L (22-30); CHLORIDE 95 mmol/L (98-107); GLUCOSE 182 mg/dL (75-110); PHOSPHORUS 2.7 mg/dL (2.5-4.5); POTASSIUM 3.7 mmol/L (3.6-5.0); SODIUM 141.4 mmol/L (137-145)
[2018-03-22 12:07] LABS: PLATELET COUNT 143 10^3/uL (150-450)
[2018-03-22] MEDS ORDERED: POLYETHYLENE GLYCOL 3350 POWDER 17 GM/1 PACKET PO PRN (12:13)
[2018-03-22] MEDS ORDERED: LACTULOSE SYRUP 20 GM/30 ML UDCUP PO PRN (12:13)
--- NOTE | 2018-03-22 12:23 | PDOC PROGRESS REPORT ---
Subjective Progress Note for:: 03/22/18 Subjective:: 72-year-old female with extensive history including CHF, CAD, [place], HTN, asthma, COPD (home O2 dependent, chronic respiratory failure), DM 2, hypothyroidism, CKD , GERD, arthritis, dementia, depression, anemia and lung cancer with brain metastasis who is well-known to the hospitalist service admitted 03/18/2018 for a COPD exacerbation. Of note, the patient was recently discharged from [facility] on for a COPD exacerbation and UTI. The patient is seen this afternoon on rounds. She is resting comfortably in bed on room air. Upon assessment, the patient is oriented to self, place, time and situation. Wheezing can be auscultated in all lung curtis. S1-S2. Trace edema in the lower extremities. Palpable pulses in all 4 extremities. The patient is able to speak in full sentences without pause. The patient states she would like to go to a SNF following discharge from [facility]. Discharge planning coordinating placement. Continue nebs, antibiotics, steroids , mucinex. Reason For Visit: COPD EXAC,CELLULITIS OF L ARM Physical Exam Vital Signs: Temp Pulse Resp BP Pulse Ox 98.2 F 113 H 20 140/83 H 98 03/22/18 08:00 03/22/18 08:12 03/22/18 08:12 03/22/18 08:00 03/22/18 08:12 Intake & Output 03/21/18 03/22/18 03/23/18 06:59 06:59 06:59 Intake Total 907 918 Balance 907 918 Weight 83.9 kg 90.3 kg General appearance: PRESENT: no acute distress, well-developed Head exam: PRESENT: atraumatic Eye exam: PRESENT: conjunctiva pink, PERRLA Mouth exam: PRESENT: moist, tongue midline Neck exam: PRESENT: full ROM. ABSENT: JVD Respiratory exam: PRESENT: prolonged expiratory phas, symmetrical, unlabored, wheezes. ABSENT: accessory muscle use, rhonchi Cardiovascular exam: PRESENT: irregular rhythm, +S1, +S2 Pulses: PRESENT: normal radial pulses, normal dorsalis pedis pul Vascular exam: PRESENT: normal capillary refill GI/Abdominal exam: PRESENT: normal bowel sounds, soft. ABSENT: tenderness Rectal exam: PRESENT: deferred Extremities exam: PRESENT: full ROM Musculoskeletal exam: PRESENT: ambulatory - with assistance, full ROM Neurological exam: PRESENT: alert, awake, oriented to person, oriented to place , oriented to time, oriented to situation Skin exam: PRESENT: dry, intact, other - bruising (in multiple stages of healing ) to dorsal aspect of both hands and forearms. Improved since yesterday Results Laboratory Results: 03/22/18 11:15 03/22/18 11:15 Sodium 141.4 Potassium 3.7 Chloride 95 L Carbon Dioxide 36 H Anion Gap 10 BUN 22 H Creatinine 0.74 Est GFR ( Amer) > 60 Est GFR (Non-Af Amer) > 60 Glucose 182 H Calcium 8.9 Phosphorus 2.7 Magnesium 1.7 03/19/18 16:00 Clean Catch Midstream Urine Culture - Final Enterococcus Faecalis(Group D) 03/18/18 03/18/18 03/19/18 11:41 17:30 06:47 Troponin I 0.056 0.042 NT-Pro-B Natriuret Pep 1680 H 03/20/18 03/22/18 05:24 11:15 Troponin I NT-Pro-B Natriuret Pep 2730 H 1370 H Impressions: Chest X-Ray 03/19/18 00:00 IMPRESSION: Small pleural effusions with the right improved since the prior study. No acute infiltrate. No mass. KUB X-Ray 03/21/18 00:00 IMPRESSION: NO RADIOGRAPHIC EVIDENCE FOR ACUTE ABDOMINAL DISEASE. Status: Imported from PACS Assessment & Plan - Diagnosis (1) COPD (chronic obstructive pulmonary disease) Qualifiers: COPD type: unspecified COPD Qualified Code(s): J44.9 - Chronic obstructive pulmonary disease, unspecified Is this a current diagnosis for this admission?: Yes Plan: Patient admitted to [facility] with COPD exacerbation Expiratory wheezing in all lung curtis Home COPD medications are continued Continue Serevent IH Scheduled Duoneb nebulizer treatments q4h and PRN Xopenex Continue IV Solu-Medrol 60mg q6h IS and flutter valve at bedside Continue twice daily Mucinex Empiric antibiotic coverage with IV Levaquin in the setting of severe COPD exacerbation. (2) CHF (congestive heart failure) Qualifiers: Heart failure type: diastolic Heart failure chronicity: acute on chronic Qualified Code(s): I50.33 - Acute on chronic diastolic (congestive) heart failure Is this a current diagnosis for this admission?: Yes Plan: Acute on chronic diastolic CHF peripheral pitting edema and adventitious breath sounds ProBNP improved from 2700-->1370 Previous echocardiogram demonstrates preserved LVEF Continue daily p.o. furosemide 80 mg Daily weights Cardiac diet Strict I's and O's (3) Diabetes Qualifiers: Diabetes mellitus type: type 2 Is this a current diagnosis for this admission?: Yes Plan: Accu-Cheks before meals at bedtime Humalog for sliding scale coverage Oral antidiabetics on hold while inpatient (4) Left arm cellulitis Is this a current diagnosis for this admission?: Yes Plan: Left upper arm skin tear with erythema Blood cultures no growth Patient remains afebrile and nontoxic-appearing Topical bacitracin and daily wound care per nursing (5) Abdominal pain Qualifiers: Abdominal location: right lower quadrant Qualified Code(s): R10.31 - Right lower quadrant pain Is this a current diagnosis for this admission?: Yes Plan: Resolved Patient was c/o mild RUQ and RLQ abdominal pain Mildly TTP KUB obtained - reveals normal bowel gas pattern. No acute findings. Patient refusing miralax and senna because she has been having daily bowel movements (6) UTI (urinary tract infection) Qualifiers: Urinary tract infection type: site unspecified Hematuria presence: without hematuria Qualified Code(s): N39.0 - Urinary tract infection, site not specified Is this a current diagnosis for this admission?: Yes Plan: UA not indicative of UTI but urine culture grew enterococcus C&S reveal resistance to levaquin and Vanomycin ANTON is 2 Initiate Daptomycin IV for treatment Patient has chronic history of UTIs, including VRE and E.Coli - Time Time Spent with patient: 15-24 minutes Medications reviewed and adjusted accordingly: Yes Anticipated discharge: SNF Within: within 48 hours - Inpatient Certification Based on my medical assessment, after consideration of the patient's comorbidities, presenting symptoms, or acuity I expect that the services needed warrant INPATIENT care.: Yes I certify that my determination is in accordance with my understanding of Medicare's requirements for reasonable and necessary INPATIENT services [42 CFR 412.3e].: Yes Medical Necessity: Need for IV Antibiotics, Risk of Complication if Not Cared For in Hospital - Plan Summary Plan Summary: INITIATE DAPTOMYCIN. AWAITING PLACEMENT AT SNF. CONTINUE ABX, STEROIDS, NEBS, MUCINEX
[2018-03-22] MEDS ORDERED: DAPTOMYCIN 500 MG in NORMAL SALINE 50 ML IV SCH (13:00)
[2018-03-22] MEDS ORDERED: MAGNESIUM SULFATE/D5W 1 GM/100 ML RTUPB IV ONE ×2 (13:00→16:33)
[2018-03-22] MEDS ORDERED: POTASSI CL 20 MEQ/50 ML RIDER 20 MEQ/50 ML RTUPB IV ONE ×2 (14:00→18:34)
[2018-03-22 22:58] LABS: HEMOGLOBIN 8.9 g/dL (12.0-15.5); MEAN CORPUSCULAR HEMOGLOBIN 32.1 pg (27.0-33.4); MEAN CORPUSCULAR HGB CONC 33.1 g/dL (32.0-36.0); MEAN CORPUSCULAR VOLUME 97 fl (80-97); PLATELET COUNT 200 10^3/uL (150-450); RED BLOOD COUNT 2.78 10^6/uL (3.72-5.28); RED CELL DISTRIBUTION WIDTH 16.4 % (11.5-14.0); WHITE BLOOD COUNT 7.9 10^3/uL (4.0-10.5)
[2018-03-22] MEDS: LEVOFLOXACIN 750 MG/D5W RTU 750 MG/150 ML RTUPB IV SCH (23:22)
[2018-03-22] MEDS: SERTRALINE HCL 50 MG TABLET PO SCH (23:24)
[2018-03-23] MEDS: IPRATROPIUM/ALBUTEROL 0.5-2.5 MG/3 ML AMPUL NEB SCH ×7 (00:10→23:21)
[2018-03-23] MEDS: INSULIN REG, HUMAN 100 UNIT/ML 3 ML VIAL (PYX) SUBCUT PRN (01:02)
[2018-03-23] MEDS: METHYLPREDNISOLONE INJ 125 MG/2 ML SDV IV SCH ×3 (06:10→21:11)
[2018-03-23] MEDS: LEVOTHYROXINE SODIUM 0.088 MG TABLET PO SCH (06:10)
[2018-03-23 08:04] LABS: BLOOD UREA NITROGEN 23 mg/dL (7-20); CALCIUM 8.9 mg/dL (8.4-10.2); CHLORIDE 94 mmol/L (98-107); GLUCOSE 150 mg/dL (75-110); PHOSPHORUS 3.3 mg/dL (2.5-4.5); POTASSIUM 3.4 mmol/L (3.6-5.0); SODIUM 140.8 mmol/L (137-145)
[2018-03-23 08:28] LABS: ANION GAP 10 (5-19); CARBON DIOXIDE 37 mmol/L (22-30)
[2018-03-23] MEDS: ENOXAPARIN SODIUM INJ 40 MG/0.4 ML DISP.SYRIN SUBCUT SCH (12:12)
[2018-03-23] MEDS: SALMETEROL XINAFOATE DISKUS 50 MCG/1 DOSE 28 DOSE IH SCH ×2 (12:12→21:11)
[2018-03-23] MEDS: ROFLUMILAST 500 MCG TABLET PO SCH (12:14)
[2018-03-23] MEDS: LISINOPRIL 5 MG TABLET PO SCH (12:14)
[2018-03-23] MEDS: FAMOTIDINE 20 MG TABLET PO SCH ×2 (12:15→21:11)
[2018-03-23] MEDS: SENNOSIDES/DOCUSATE 8.6-50 MG 1 EACH TABLET PO SCH ×2 (12:15→18:50)
[2018-03-23] MEDS: FUROSEMIDE 80 MG TABLET PO SCH (12:15)
[2018-03-23] MEDS: GUAIFENESIN 600 MG TABLET.SA PO SCH ×2 (12:15→21:10)
[2018-03-23] MEDS: BACITRACIN ZINC OINTMENT 15 GM TP SCH (12:15)
[2018-03-23] MEDS: AMPICILLIN SODIUM/SULBACTAM NA 3 GM in NORMAL SALINE 100 ML IV SCH ×2 (15:59→18:05)
[2018-03-23] MEDS: TIOTROPIUM BROMIDE DPI 5 CAP/KIT (18 MCG/CAP) IH SCH (17:39)
[2018-03-23] MEDS: POTASSI CL 20 MEQ/50 ML RIDER 20 MEQ/50 ML RTUPB IV SCH ×2 (17:39→21:10)
[2018-03-23] MEDS ORDERED: POTASSI CL 20 MEQ/50 ML RIDER 20 MEQ/50 ML RTUPB IV ONE (20:52)
[2018-03-23] MEDS: SERTRALINE HCL 50 MG TABLET PO SCH (21:12)
[2018-03-23 22:00] LABS: HEMATOCRIT 26.8 % (36.0-47.0); MEAN CORPUSCULAR HEMOGLOBIN 32.6 pg (27.0-33.4); MEAN CORPUSCULAR HGB CONC 33.6 g/dL (32.0-36.0); MEAN CORPUSCULAR VOLUME 97 fl (80-97); PLATELET COUNT 227 10^3/uL (150-450); RED BLOOD COUNT 2.76 10^6/uL (3.72-5.28); RED CELL DISTRIBUTION WIDTH 16.9 % (11.5-14.0); WHITE BLOOD COUNT 8.6 10^3/uL (4.0-10.5)
[2018-03-23] MEDS ORDERED: POTASSIUM CHLORIDE 20 MEQ/50 ML RTU IV ONE (22:00)
[2018-03-23] MEDS: LEVOFLOXACIN 750 MG/D5W RTU 750 MG/150 ML RTUPB IV SCH (23:48)
[2018-03-24] MEDS: METHYLPREDNISOLONE INJ 125 MG/2 ML SDV IV SCH ×5 (00:02→22:03)
--- NOTE | 2018-03-24 01:00 | PDOC PROGRESS REPORT ---
Subjective Progress Note for:: 03/23/18 Subjective:: 72-year-old female with extensive history including CHF, CAD, [place], HTN, asthma, COPD (home O2 dependent, chronic respiratory failure), DM 2, hypothyroidism, CKD , GERD, arthritis, dementia, depression, anemia and lung cancer with brain metastasis who is well-known to the hospitalist service admitted 03/18/2018 for a COPD exacerbation. Of note, the patient was recently discharged from [facility] on for a COPD exacerbation and UTI. The patient is seen this afternoon on rounds. She is resting comfortably in bed on room air. Upon assessment, the patient is oriented to self, place, time and situation. Nursing staff reports the patient has been increasingly confused today, states she is not sleeping well at night. Wheezing can be auscultated in all lung curtis. S1-S2. Trace edema in the lower extremities. Palpable pulses in all 4 extremities. The patient is able to speak in full sentences without pause. The patient states she would like to go to a SNF following discharge from [facility]. Discharge planning coordinating placement. Continue nebs, antibiotics, steroids , mucinex. Day/night cues from nursing staff. Reason For Visit: COPD EXAC,CELLULITIS OF L ARM Physical Exam Vital Signs: Temp Pulse Resp BP Pulse Ox 99.4 F 109 H 18 115/64 95 03/23/18 16:00 03/23/18 23:21 03/23/18 23:21 03/23/18 16:00 03/23/18 23:21 Intake & Output 03/22/18 03/23/18 03/24/18 06:59 06:59 06:59 Intake Total 918 1157 200 Balance 918 1157 200 Weight 90.3 kg 88.2 kg General appearance: PRESENT: no acute distress, well-developed, well-nourished Head exam: PRESENT: atraumatic Eye exam: PRESENT: conjunctiva pink, PERRLA Mouth exam: PRESENT: moist, tongue midline Neck exam: PRESENT: full ROM Respiratory exam: PRESENT: symmetrical, unlabored, wheezes Cardiovascular exam: PRESENT: irregular rhythm, +S1, +S2 Pulses: PRESENT: normal radial pulses, normal dorsalis pedis pul Vascular exam: PRESENT: normal capillary refill GI/Abdominal exam: PRESENT: normal bowel sounds, soft. ABSENT: tenderness Rectal exam: PRESENT: deferred Extremities exam: PRESENT: full ROM, pedal edema - trace edema Musculoskeletal exam: PRESENT: ambulatory, full ROM Neurological exam: PRESENT: alert, awake, oriented to person, oriented to place , oriented to time, oriented to situation Psychiatric exam: PRESENT: appropriate affect Skin exam: PRESENT: dry, intact, warm, other - BRUISINNG IN MULTIPLE STAGES OF HEALING TO B/L HANDS AND FOREARMS. LARGE SKIN TEAR TO LUE. Results Laboratory Results: 03/23/18 21:45 03/23/18 07:24 03/23/18 03/23/18 07:24 21:45 WBC 8.6 RBC 2.76 L Hgb 9.0 L Hct 26.8 L MCV 97 MCH 32.6 MCHC 33.6 RDW 16.9 H Plt Count 227 Sodium 140.8 Potassium 3.4 L Chloride 94 L Carbon Dioxide 37 H Anion Gap 10 BUN 23 H Creatinine 0.81 Est GFR ( Amer) > 60 Est GFR (Non-Af Amer) > 60 Glucose 150 H Calcium 8.9 Phosphorus 3.3 Magnesium 2.1 03/18/18 03/18/18 03/19/18 11:41 17:30 06:47 Troponin I 0.056 0.042 NT-Pro-B Natriuret Pep 1680 H 03/20/18 03/22/18 03/23/18 05:24 11:15 07:24 Troponin I NT-Pro-B Natriuret Pep 2730 H 1370 H 1450 H Impressions: Chest X-Ray 03/19/18 00:00 IMPRESSION: Small pleural effusions with the right improved since the prior study. No acute infiltrate. No mass. KUB X-Ray 03/21/18 00:00 IMPRESSION: NO RADIOGRAPHIC EVIDENCE FOR ACUTE ABDOMINAL DISEASE. Status: Imported from PACS Assessment & Plan - Diagnosis (1) COPD (chronic obstructive pulmonary disease) Qualifiers: COPD type: unspecified COPD Qualified Code(s): J44.9 - Chronic obstructive pulmonary disease, unspecified Is this a current diagnosis for this admission?: Yes Plan: Patient admitted to [facility] with COPD exacerbation Expiratory wheezing in all lung curtis, improved since yesterday Home COPD medications are continued Continue Serevent IH Scheduled Duoneb nebulizer treatments q4h and PRN Xopenex Continue IV Solu-Medrol 60mg q6h IS and flutter valve at bedside Continue twice daily Mucinex Empiric antibiotic coverage with IV Levaquin in the setting of severe COPD exacerbation. (2) CHF (congestive heart failure) Qualifiers: Heart failure type: diastolic Heart failure chronicity: acute on chronic Qualified Code(s): I50.33 - Acute on chronic diastolic (congestive) heart failure Is this a current diagnosis for this admission?: Yes Plan: Acute on chronic diastolic CHF peripheral pitting edema and adventitious breath sounds ProBNP improved from 2700-->1370 Previous echocardiogram demonstrates preserved LVEF Continue daily p.o. furosemide 80 mg Daily weights Cardiac diet Strict I's and O's (3) Diabetes Qualifiers: Diabetes mellitus type: type 2 Is this a current diagnosis for this admission?: Yes Plan: Accu-Cheks before meals at bedtime Humalog for sliding scale coverage Oral antidiabetics on hold while inpatient (4) Left arm cellulitis Is this a current diagnosis for this admission?: Yes Plan: Left upper arm skin tear with erythema Blood cultures no growth Patient remains afebrile and nontoxic-appearing Topical bacitracin and daily wound care per nursing (5) Abdominal pain Qualifiers: Abdominal location: right lower quadrant Qualified Code(s): R10.31 - Right lower quadrant pain Is this a current diagnosis for this admission?: Yes Plan: Resolved Patient was c/o mild RUQ and RLQ abdominal pain Mildly TTP KUB obtained - reveals normal bowel gas pattern. No acute findings. Patient refusing miralax and senna because she has been having daily bowel movements (6) UTI (urinary tract infection) Qualifiers: Urinary tract infection type: site unspecified Hematuria presence: without hematuria Qualified Code(s): N39.0 - Urinary tract infection, site not specified Is this a current diagnosis for this admission?: Yes Plan: UA not indicative of UTI but urine culture grew enterococcus C&S reveal resistance to levaquin and Vanomycin ANTON is 2 Initiate Unasyn IV for treatment Patient has chronic history of UTIs, including VRE and E.Coli (7) Delirium Is this a current diagnosis for this admission?: Yes Plan: Nursing staff reports the patient has become increasingly confused and that the patient is not sleeping at night Patient able to answer all orientation questions but is witnessed yelling at staff/family members passing by her room She is often heard yelling obscenities or making vulgar statements Initiate Klonopin PO QHS as a sleep aid Encourage day/night cues Patient should get OOB to recliner once per day - Time Time Spent with patient: 15-24 minutes Medications reviewed and adjusted accordingly: Yes Anticipated discharge: SNF Within: within 72 hours - Inpatient Certification Based on my medical assessment, after consideration of the patient's comorbidities, presenting symptoms, or acuity I expect that the services needed warrant INPATIENT care.: Yes I certify that my determination is in accordance with my understanding of Medicare's requirements for reasonable and necessary INPATIENT services [42 CFR 412.3e].: Yes Medical Necessity: Need for Nebulizer Therapy and Monitoring of Response, Need for IV Antibiotics, Risk of Complication if Not Cared For in Hospital - Plan Summary Plan Summary: CONTINUE COPD TREATMENT - NEBS, STEROIDS, MUCINEX, ABX. CHANGE ABX FOR UTI PER PHARMACY RECOMMENDATIONS.
[2018-03-24] MEDS ORDERED: IPRATROPIUM/ALBUTEROL 0.5-2.5 MG/3 ML AMPUL NEB ONE ×2 (01:30→04:00)
[2018-03-24] MEDS: AMPICILLIN SODIUM/SULBACTAM NA 3 GM in NORMAL SALINE 100 ML IV SCH ×5 (01:36→17:15)
[2018-03-24] MEDS: HYDROCODONE/ACETAMINOPHEN 5-325 MG TABLET PO PRN (02:13)
[2018-03-24] MEDS: LEVOTHYROXINE SODIUM 0.088 MG TABLET PO SCH (06:05)
[2018-03-24 06:12] LABS: BLOOD UREA NITROGEN 28 mg/dL (7-20); CHLORIDE 95 mmol/L (98-107); GLUCOSE 170 mg/dL (75-110); PHOSPHORUS 4.5 mg/dL (2.5-4.5); POTASSIUM 3.2 mmol/L (3.6-5.0); SODIUM 144.7 mmol/L (137-145)
[2018-03-24 06:22] LABS: ANION GAP 9 (5-19)
[2018-03-24 06:59] LABS: HEMATOCRIT 26.6 % (36.0-47.0); MEAN CORPUSCULAR HEMOGLOBIN 32.3 pg (27.0-33.4); MEAN CORPUSCULAR VOLUME 95 fl (80-97); PLATELET COUNT 230 10^3/uL (150-450); RED CELL DISTRIBUTION WIDTH 17.4 % (11.5-14.0); WHITE BLOOD COUNT 6.8 10^3/uL (4.0-10.5)
[2018-03-24 07:07] LABS: CARBON DIOXIDE 41 mmol/L (22-30)
[2018-03-24] MEDS: IPRATROPIUM/ALBUTEROL 0.5-2.5 MG/3 ML AMPUL NEB SCH ×4 (08:44→19:36)
[2018-03-24] MEDS: INSULIN REG, HUMAN 100 UNIT/ML 3 ML VIAL (PYX) SUBCUT PRN ×2 (09:07→11:48)
[2018-03-24] MEDS ORDERED: POTASSI CL 20 MEQ/50 ML RIDER 20 MEQ/50 ML RTUPB IV ONE (10:00)
[2018-03-24] MEDS ORDERED: POTASSIUM CHLORIDE 10 MEQ CAPSULE.ER PO ONE (10:00)
[2018-03-24] MEDS: ENOXAPARIN SODIUM INJ 40 MG/0.4 ML DISP.SYRIN SUBCUT SCH (10:50)
[2018-03-24] MEDS: SENNOSIDES/DOCUSATE 8.6-50 MG 1 EACH TABLET PO SCH ×2 (10:50→17:15)
[2018-03-24] MEDS: FAMOTIDINE 20 MG TABLET PO SCH ×2 (10:50→22:03)
[2018-03-24] MEDS: GUAIFENESIN 600 MG TABLET.SA PO SCH ×2 (10:50→22:03)
[2018-03-24] MEDS: LISINOPRIL 5 MG TABLET PO SCH (10:50)
[2018-03-24] MEDS: ROFLUMILAST 500 MCG TABLET PO SCH (10:54)
[2018-03-24] MEDS: TIOTROPIUM BROMIDE DPI 5 CAP/KIT (18 MCG/CAP) IH SCH (10:57)
[2018-03-24] MEDS: BACITRACIN ZINC OINTMENT 15 GM TP SCH (10:57)
[2018-03-24] MEDS: SALMETEROL XINAFOATE DISKUS 50 MCG/1 DOSE 28 DOSE IH SCH ×2 (10:57→22:04)
[2018-03-24] MEDS: FUROSEMIDE 80 MG TABLET PO SCH (11:48)
[2018-03-24] MEDS: LEVOFLOXACIN 750 MG/D5W RTU 750 MG/150 ML RTUPB IV SCH (18:10)
--- NOTE | 2018-03-24 19:54 | RADIOLOGY REPORT (SQ) ---
EXAM DESCRIPTION: CT HEAD WITHOUT COMPLETED DATE/TIME: 03/24/2018 6:28 pm REASON FOR STUDY: acute confusion. hx brain cancer COMPARISON: 10/05/2017 TECHNIQUE: Axial images acquired through the brain without intravenous contrast. Images reviewed wi th bone, brain and subdural windows. Additional sagittal and coronal reconstructions were generated. Images stored on PACS. All CT scanners at this facility use dose modulation, iterative reconstruction, and/or weight based d osing when appropriate to reduce radiation dose to as low as reasonably achievable (ALARA). [facility]: Dose Right [facility]: CareDose [facility]: Dose Right [facility]: Teradose 4D [facility]: Smart 1RP Media RADIATION DOSE: CT Rad equipment meets quality standard of care and radiation dose reduction techniq ues were employed. CTDIvol: 55.2 mGy. DLP: 1001 mGy-cm.mGy. LIMITATIONS: None. FINDINGS: VENTRICLES: Prominent. CEREBRUM: No masses. No hemorrhage. No midline shift. Areas of low density in the white matter mos t likely due to chronic micro-vascular ischemic change. No evidence for acute infarction. CEREBELLUM: No masses. No hemorrhage. No alteration of density. No evidence for acute infarction. EXTRAAXIAL SPACES: Age-related involutional change. No fluid collections. No masses. ORBITS AND GLOBE: No intra- or extraconal masses. Normal contour of globe without masses. CALVARIUM: No fracture. PARANASAL SINUSES: No fluid or mucosal thickening. SOFT TISSUES: No mass or hematoma. OTHER: No other significant finding. IMPRESSION: STABLE CT APPEARANCE OF THE BRAIN. CHRONIC CHANGES OF ATROPHY AND MICROVASCULAR ISCHEMI A. NO ACUTE PROCESS. EVIDENCE OF ACUTE STROKE: NO. TECHNICAL DOCUMENTATION: JOB ID: [id number] Quality ID # [id number]: Final reports with documentation of one or more dose reduction techniques (e.g., Au tomated exposure control, adjustment of the mA and/or kV according to patient size, use of iterative reconstruction technique) 2010 [employer]- All Rights Reserved Reading location - IP/workstation name: [email or web address]
[2018-03-24] MEDS: QUETIAPINE FUMARATE 25 MG TABLET PO SCH (22:03)
[2018-03-24] MEDS: SERTRALINE HCL 50 MG TABLET PO SCH (22:03)
--- NOTE | 2018-03-24 22:07 | PDOC PROGRESS REPORT ---
<REBECCAJUWAN Claire - Last Filed: 03/24/18 21:05> Subjective Progress Note for:: 03/24/18 Subjective:: 72-year-old female with extensive history including CHF, CAD, [place], HTN, asthma, COPD (home O2 dependent, chronic respiratory failure), DM 2, hypothyroidism, CKD , GERD, arthritis, dementia, depression, anemia and lung cancer with brain metastasis who is well-known to the hospitalist service admitted 03/18/2018 for a COPD exacerbation. Of note, the patient was recently discharged from [facility] on for a COPD exacerbation and UTI. The patient was seen this morning on rounds. She is resting comfortably in bed on supplemental oxygen. She is drowsy but arousable. Nursing staff reports the patient is refusing to get out of bed to recliner. Additionally, the patient seems more confused than usual. Upon assessment, the patient is able to answer all orientation questions appropriately. She is able to speak in full sentences without pause. Mild-moderate wheezing heard in bilateral lung bases. No rhonci or purse lipped breathing, central or peripheral cyanosis. The patient states she would like to go to SNF rehab following discharge from [facility]. Discharge planning coordinating placement. Continue nebs, antibiotics, steroids, mucinex. Day/night cues from nursing staff. Reason For Visit: COPD EXAC,CELLULITIS OF L ARM Physical Exam Vital Signs: Temp Pulse Resp BP Pulse Ox 99.0 F 108 H 16 137/76 H 97 03/24/18 16:34 03/24/18 19:36 03/24/18 19:36 03/24/18 16:34 03/24/18 19:36 Intake & Output 03/23/18 03/24/18 03/25/18 06:59 06:59 06:59 Intake Total 1157 300 468 Balance 1157 300 468 Weight 88.2 kg 88.2 kg Results Laboratory Results: 03/24/18 04:50 03/24/18 04:50 03/23/18 03/24/18 03/24/18 21:45 04:50 04:50 WBC 8.6 6.8 RBC 2.76 L 2.80 L Hgb 9.0 L 9.0 L Hct 26.8 L 26.6 L MCV 97 95 MCH 32.6 32.3 MCHC 33.6 34.0 RDW 16.9 H 17.4 H Plt Count 227 230 Sodium 144.7 Potassium 3.2 L Chloride 95 L Carbon Dioxide 41 H* Anion Gap 9 BUN 28 H Creatinine 1.07 Est GFR ( Amer) > 60 Est GFR (Non-Af Amer) 50 L Glucose 170 H Calcium 9.0 Phosphorus 4.5 Magnesium 2.1 03/18/18 03/18/18 03/19/18 11:41 17:30 06:47 Troponin I 0.056 0.042 NT-Pro-B Natriuret Pep 1680 H 03/20/18 03/22/18 03/23/18 05:24 11:15 07:24 Troponin I NT-Pro-B Natriuret Pep 2730 H 1370 H 1450 H 03/24/18 04:50 Troponin I NT-Pro-B Natriuret Pep 1600 H Impressions: Chest X-Ray 03/19/18 00:00 IMPRESSION: Small pleural effusions with the right improved since the prior study. No acute infiltrate. No mass. KUB X-Ray 03/21/18 00:00 IMPRESSION: NO RADIOGRAPHIC EVIDENCE FOR ACUTE ABDOMINAL DISEASE. Head CT 03/24/18 17:31 IMPRESSION: STABLE CT APPEARANCE OF THE BRAIN. CHRONIC CHANGES OF ATROPHY AND MICROVASCULAR ISCHEMIA. NO ACUTE PROCESS. EVIDENCE OF ACUTE STROKE: NO. Status: Imported from PACS Assessment & Plan - Diagnosis (1) COPD (chronic obstructive pulmonary disease) QualifierTitle: COPD type: unspecified COPD Qualified Code(s): J44.9 - Chronic obstructive pulmonary disease, unspecified Is this a current diagnosis for this admission?: Yes Plan: Patient admitted to [facility] with COPD exacerbation Expiratory wheezing in all lung curtis, improved since yesterday Home COPD medications are continued Continue Serevent IH Scheduled Duoneb nebulizer treatments q4h and PRN Xopenex Continue IV Solu-Medrol 60mg q6h IS and flutter valve at bedside Continue twice daily Mucinex Empiric antibiotic coverage with IV Levaquin in the setting of severe COPD exacerbation. (2) CHF (congestive heart failure) QualifierTitle: Heart failure type: diastolic Heart failure chronicity: acute on chronic Qualified Code(s): I50.33 - Acute on chronic diastolic ( congestive) heart failure Is this a current diagnosis for this admission?: Yes Plan: Acute on chronic diastolic CHF peripheral pitting edema and adventitious breath sounds ProBNP improved from 2700-->1600 Previous echocardiogram demonstrates preserved LVEF Continue daily p.o. furosemide 80 mg Daily weights Cardiac diet Strict I's and O's (3) Diabetes QualifierTitle: Diabetes mellitus type: type 2 Is this a current diagnosis for this admission?: Yes Plan: Accu-Cheks before meals at bedtime Humalog for sliding scale coverage Oral antidiabetics on hold while inpatient (4) Left arm cellulitis Is this a current diagnosis for this admission?: Yes Plan: Left upper arm skin tear with erythema Blood cultures no growth Patient remains afebrile and nontoxic-appearing Topical bacitracin and daily wound care per nursing (5) Abdominal pain QualifierTitle: Abdominal location: right lower quadrant Qualified Code(s ): R10.31 - Right lower quadrant pain Is this a current diagnosis for this admission?: Yes Plan: Resolved Patient was c/o mild RUQ and RLQ abdominal pain Mildly TTP KUB obtained - reveals normal bowel gas pattern. No acute findings. Patient refusing miralax and senna because she has been having daily bowel movements (6) UTI (urinary tract infection) QualifierTitle: Urinary tract infection type: site unspecified Hematuria presence: without hematuria Qualified Code(s): N39.0 - Urinary tract infection , site not specified Is this a current diagnosis for this admission?: Yes Plan: UA not indicative of UTI but urine culture grew enterococcus C&S reveal resistance to levaquin and Vanomycin ANTON is 2 Continue Unasyn IV for treatment Patient has chronic history of UTIs, including VRE and E.Coli (7) Delirium Is this a current diagnosis for this admission?: Yes Plan: Nursing staff reports the patient has become increasingly confused and that the patient is not sleeping at night Initiate low dose seroquel PO QHS as a sleep aid Encourage day/night cues Patient should get OOB to recliner once per day - Time Time Spent with patient: 15-24 minutes Medications reviewed and adjusted accordingly: Yes Anticipated discharge: Home - Inpatient Certification Based on my medical assessment, after consideration of the patient's comorbidities, presenting symptoms, or acuity I expect that the services needed warrant INPATIENT care.: Yes I certify that my determination is in accordance with my understanding of Medicare's requirements for reasonable and necessary INPATIENT services [42 CFR 412.3e].: Yes Medical Necessity: Risk of Complication if Not Cared For in Hospital <MICHELLE GARZON M - Last Filed: 04/03/18 16:40> Subjective Reason For Visit: COPD EXAC,CELLULITIS OF L ARM Physical Exam Vital Signs: Temp Pulse Resp BP Pulse Ox 99.1 F 107 H 18 136/73 H 98 03/26/18 17:16 03/26/18 20:40 03/26/18 20:40 03/26/18 17:16 03/26/18 20:40 Results Laboratory Results: 03/24/18 04:50 03/25/18 06:14 03/18/18 03/18/18 03/19/18 11:41 17:30 06:47 Troponin I 0.056 0.042 NT-Pro-B Natriuret Pep 1680 H 03/20/18 03/22/18 03/23/18 05:24 11:15 07:24 Troponin I NT-Pro-B Natriuret Pep 2730 H 1370 H 1450 H 03/24/18 03/25/18 04:50 06:14 Troponin I NT-Pro-B Natriuret Pep 1600 H 1940 H Impressions: Chest X-Ray 03/19/18 00:00 IMPRESSION: Small pleural effusions with the right improved since the prior study. No acute infiltrate. No mass. KUB X-Ray 03/21/18 00:00 IMPRESSION: NO RADIOGRAPHIC EVIDENCE FOR ACUTE ABDOMINAL DISEASE. Head CT 03/24/18 17:31 IMPRESSION: STABLE CT APPEARANCE OF THE BRAIN. CHRONIC CHANGES OF ATROPHY AND MICROVASCULAR ISCHEMIA. NO ACUTE PROCESS. EVIDENCE OF ACUTE STROKE: NO. Provider Note Provider Note: I have discussed this patient in detail with INDIGO Ugarte. I am in agreement with her evaluation and plan.
[2018-03-25] MEDS: AMPICILLIN SODIUM/SULBACTAM NA 3 GM in NORMAL SALINE 100 ML IV SCH ×5 (00:59→23:47)
[2018-03-25] MEDS: METHYLPREDNISOLONE INJ 125 MG/2 ML SDV IV SCH ×4 (03:25→21:32)
[2018-03-25] MEDS: LEVOTHYROXINE SODIUM 0.088 MG TABLET PO SCH (06:07)
[2018-03-25 07:41] LABS: ANION GAP 7 (5-19); BLOOD UREA NITROGEN 27 mg/dL (7-20); CALCIUM 8.6 mg/dL (8.4-10.2); CARBON DIOXIDE 39 mmol/L (22-30); CHLORIDE 100 mmol/L (98-107); GLUCOSE 162 mg/dL (75-110); PHOSPHORUS 4.4 mg/dL (2.5-4.5); POTASSIUM 3.6 mmol/L (3.6-5.0); SODIUM 145.9 mmol/L (137-145)
[2018-03-25] MEDS: IPRATROPIUM/ALBUTEROL 0.5-2.5 MG/3 ML AMPUL NEB SCH ×4 (09:00→19:56)
[2018-03-25] MEDS: GUAIFENESIN 600 MG TABLET.SA PO SCH ×2 (12:03→21:33)
[2018-03-25] MEDS: BACITRACIN ZINC OINTMENT 15 GM TP SCH (12:06)
[2018-03-25] MEDS: SALMETEROL XINAFOATE DISKUS 50 MCG/1 DOSE 28 DOSE IH SCH ×2 (12:07→21:34)
[2018-03-25] MEDS: FAMOTIDINE 20 MG TABLET PO SCH ×2 (12:09→21:35)
[2018-03-25] MEDS: INSULIN REG, HUMAN 100 UNIT/ML 3 ML VIAL (PYX) SUBCUT PRN ×3 (12:10→23:44)
[2018-03-25] MEDS: TIOTROPIUM BROMIDE DPI 5 CAP/KIT (18 MCG/CAP) IH SCH (12:20)
[2018-03-25] MEDS: SENNOSIDES/DOCUSATE 8.6-50 MG 1 EACH TABLET PO SCH ×2 (12:24→18:21)
[2018-03-25] MEDS: LISINOPRIL 5 MG TABLET PO SCH (12:25)
[2018-03-25] MEDS: ENOXAPARIN SODIUM INJ 40 MG/0.4 ML DISP.SYRIN SUBCUT SCH (12:26)
[2018-03-25] MEDS ORDERED: LISINOPRIL 5 MG TABLET PO ONE (13:00)
[2018-03-25] MEDS ORDERED: ENOXAPARIN SODIUM INJ 40 MG/0.4 ML DISP.SYRIN SUBCUT ONE (13:00)
[2018-03-25] MEDS ORDERED: SENNOSIDES/DOCUSATE 8.6-50 MG 1 EACH TABLET PO ONE (13:00)
[2018-03-25] MEDS: FUROSEMIDE 80 MG TABLET PO SCH (15:39)
[2018-03-25] MEDS: ROFLUMILAST 500 MCG TABLET PO SCH (15:39)
[2018-03-25] MEDS: LEVOFLOXACIN 750 MG/D5W RTU 750 MG/150 ML RTUPB IV SCH (18:22)
[2018-03-25] MEDS: QUETIAPINE FUMARATE 25 MG TABLET PO SCH (21:33)
[2018-03-25] MEDS: SERTRALINE HCL 50 MG TABLET PO SCH (21:33)
[2018-03-25] MEDS ORDERED: CLONAZEPAM 1 MG TABLET PO SCH ×2 (22:00)
--- NOTE | 2018-03-25 22:37 | PDOC PROGRESS REPORT ---
<JUWAN UGARTE Claire - Last Filed: 03/25/18 22:35> Subjective Progress Note for:: 03/25/18 Subjective:: 72-year-old female with extensive history including CHF, CAD, [place], HTN, asthma, COPD (home O2 dependent, chronic respiratory failure), DM 2, hypothyroidism, CKD , GERD, arthritis, dementia, depression, anemia and lung cancer with brain metastasis who is well-known to the hospitalist service admitted 03/18/2018 for a COPD exacerbation. Of note, the patient was recently discharged from [facility] on for a COPD exacerbation and UTI. The patient was seen this morning on rounds. She is resting comfortably in bed on supplemental oxygen. She is awake and oriented to place, time, and person. She cannot tell me why she is in the hospital. Upon assessment, the patient is able to answer all orientation questions appropriately. She is able to speak in full sentences without pause. Very Mild wheezing heard in bilateral lung bases. No rhonci or purse lipped breathing, central or peripheral cyanosis. The patient states she would like to go to SNF rehab following discharge from [facility]. Discharge planning coordinating placement. Continue nebs, antibiotics, steroids, mucinex. Day/night cues from nursing staff. Plan for PT/OT tomorrow. Likely discharge to SNF rehab tomorrow. Reason For Visit: COPD EXAC,CELLULITIS OF L ARM Physical Exam Vital Signs: Temp Pulse Resp BP Pulse Ox 98.3 F 112 H 15 132/61 H 96 03/25/18 19:16 03/25/18 19:56 03/25/18 19:56 03/25/18 19:16 03/25/18 19:56 Intake & Output 03/24/18 03/25/18 03/26/18 06:59 06:59 06:59 Intake Total 300 1202 821 Output Total 2 Balance 300 1202 819 Weight 88.2 kg 88.3 kg General appearance: PRESENT: no acute distress, well-developed, well-nourished Head exam: PRESENT: atraumatic Eye exam: PRESENT: conjunctiva pink, PERRLA Mouth exam: PRESENT: moist, tongue midline Neck exam: PRESENT: full ROM. ABSENT: JVD Respiratory exam: PRESENT: symmetrical, unlabored, wheezes. ABSENT: prolonged expiratory phas, rhonchi Cardiovascular exam: PRESENT: irregular rhythm, +S1, +S2 Pulses: PRESENT: normal radial pulses, normal dorsalis pedis pul Vascular exam: PRESENT: normal capillary refill GI/Abdominal exam: PRESENT: normal bowel sounds, soft. ABSENT: tenderness Extremities exam: PRESENT: full ROM. ABSENT: pedal edema Musculoskeletal exam: PRESENT: ambulatory - with assistance, full ROM Neurological exam: PRESENT: alert, awake, oriented to person, oriented to place , oriented to time, oriented to situation Psychiatric exam: PRESENT: appropriate affect Skin exam: PRESENT: dry, intact, normal color Results Laboratory Results: 03/24/18 04:50 03/25/18 06:14 03/25/18 06:14 Sodium 145.9 H Potassium 3.6 Chloride 100 Carbon Dioxide 39 H Anion Gap 7 BUN 27 H Creatinine 0.99 Est GFR ( Amer) > 60 Est GFR (Non-Af Amer) 55 L Glucose 162 H Calcium 8.6 Phosphorus 4.4 Magnesium 2.2 03/18/18 03/18/18 03/19/18 11:41 17:30 06:47 Troponin I 0.056 0.042 NT-Pro-B Natriuret Pep 1680 H 03/20/18 03/22/18 03/23/18 05:24 11:15 07:24 Troponin I NT-Pro-B Natriuret Pep 2730 H 1370 H 1450 H 03/24/18 03/25/18 04:50 06:14 Troponin I NT-Pro-B Natriuret Pep 1600 H 1940 H Impressions: Chest X-Ray 03/19/18 00:00 IMPRESSION: Small pleural effusions with the right improved since the prior study. No acute infiltrate. No mass. KUB X-Ray 03/21/18 00:00 IMPRESSION: NO RADIOGRAPHIC EVIDENCE FOR ACUTE ABDOMINAL DISEASE. Head CT 03/24/18 17:31 IMPRESSION: STABLE CT APPEARANCE OF THE BRAIN. CHRONIC CHANGES OF ATROPHY AND MICROVASCULAR ISCHEMIA. NO ACUTE PROCESS. EVIDENCE OF ACUTE STROKE: NO. Status: Imported from PACS Assessment & Plan - Diagnosis (1) COPD (chronic obstructive pulmonary disease) QualifierTitle: COPD type: unspecified COPD Qualified Code(s): J44.9 - Chronic obstructive pulmonary disease, unspecified Is this a current diagnosis for this admission?: Yes Plan: Patient admitted to [facility] with COPD exacerbation very mild wheezing in all lung curtis Home COPD medications are continued Continue Serevent IH Scheduled Duoneb nebulizer treatments q6h and PRN Xopenex Wean IV Solu-Medrol 40mg q8h IS and flutter valve at bedside Continue twice daily Mucinex Empiric antibiotic coverage with IV Levaquin in the setting of severe COPD exacerbation, last day of treatment 03/26. (2) CHF (congestive heart failure) QualifierTitle: Heart failure type: diastolic Heart failure chronicity: acute on chronic Qualified Code(s): I50.33 - Acute on chronic diastolic ( congestive) heart failure Is this a current diagnosis for this admission?: Yes Plan: Acute on chronic diastolic CHF peripheral pitting edema and adventitious breath sounds ProBNP improved from 2700-->1600 Previous echocardiogram demonstrates preserved LVEF Continue daily p.o. furosemide 80 mg Daily weights Cardiac diet Strict I's and O's (3) Diabetes QualifierTitle: Diabetes mellitus type: type 2 Is this a current diagnosis for this admission?: Yes Plan: Accu-Cheks before meals at bedtime Humalog for sliding scale coverage Oral antidiabetics on hold while inpatient (4) Left arm cellulitis Is this a current diagnosis for this admission?: Yes Plan: Left upper arm skin tear with erythema Blood cultures no growth Patient remains afebrile and nontoxic-appearing Topical bacitracin and daily wound care per nursing (5) Abdominal pain QualifierTitle: Abdominal location: right lower quadrant Qualified Code(s ): R10.31 - Right lower quadrant pain Is this a current diagnosis for this admission?: Yes Plan: Resolved Patient was c/o mild RUQ and RLQ abdominal pain Mildly TTP KUB obtained - reveals normal bowel gas pattern. No acute findings. Patient refusing miralax and senna because she has been having daily bowel movements (6) UTI (urinary tract infection) QualifierTitle: Urinary tract infection type: site unspecified Hematuria presence: without hematuria Qualified Code(s): N39.0 - Urinary tract infection , site not specified Is this a current diagnosis for this admission?: Yes Plan: UA not indicative of UTI but urine culture grew enterococcus C&S reveal resistance to levaquin and Vanomycin ANTON is 2 Continue Unasyn IV for treatment Patient has chronic history of UTIs, including VRE and E.Coli (7) Delirium Is this a current diagnosis for this admission?: Yes Plan: Improving Nursing staff reports the patient had become increasingly confused and that the patient is not sleeping at night Continue low dose seroquel PO QHS as a sleep aid Encourage day/night cues Patient should get OOB to recliner once per day Patient seems to respond well to this treatment, plan to continue post-discharge - Time Time Spent with patient: 15-24 minutes Medications reviewed and adjusted accordingly: Yes Anticipated discharge: SNF Within: within 24 hours - Inpatient Certification Based on my medical assessment, after consideration of the patient's comorbidities, presenting symptoms, or acuity I expect that the services needed warrant INPATIENT care.: Yes I certify that my determination is in accordance with my understanding of Medicare's requirements for reasonable and necessary INPATIENT services [42 CFR 412.3e].: Yes Medical Necessity: Risk of Complication if Not Cared For in Hospital <MICHELLE GARZON - Last Filed: 04/03/18 16:41> Subjective Reason For Visit: COPD EXAC,CELLULITIS OF L ARM Physical Exam Vital Signs: Temp Pulse Resp BP Pulse Ox 99.1 F 107 H 18 136/73 H 98 03/26/18 17:16 03/26/18 20:40 03/26/18 20:40 03/26/18 17:16 03/26/18 20:40 Results Laboratory Results: 03/24/18 04:50 03/25/18 06:14 03/18/18 03/18/18 03/19/18 11:41 17:30 06:47 Troponin I 0.056 0.042 NT-Pro-B Natriuret Pep 1680 H 03/20/18 03/22/18 03/23/18 05:24 11:15 07:24 Troponin I NT-Pro-B Natriuret Pep 2730 H 1370 H 1450 H 03/24/18 03/25/18 04:50 06:14 Troponin I NT-Pro-B Natriuret Pep 1600 H 1940 H Impressions: Chest X-Ray 03/19/18 00:00 IMPRESSION: Small pleural effusions with the right improved since the prior study. No acute infiltrate. No mass. KUB X-Ray 03/21/18 00:00 IMPRESSION: NO RADIOGRAPHIC EVIDENCE FOR ACUTE ABDOMINAL DISEASE. Head CT 03/24/18 17:31 IMPRESSION: STABLE CT APPEARANCE OF THE BRAIN. CHRONIC CHANGES OF ATROPHY AND MICROVASCULAR ISCHEMIA. NO ACUTE PROCESS. EVIDENCE OF ACUTE STROKE: NO. Provider Note Provider Note: I have discussed this patient with INDIGO Ugarte. I am in agreement with her evaluation and plan.
[2018-03-26] MEDS ORDERED: IPRATROPIUM/ALBUTEROL 0.5-2.5 MG/3 ML AMPUL NEB ONE (02:00)
[2018-03-26] MEDS: METHYLPREDNISOLONE INJ 125 MG/2 ML SDV IV SCH ×3 (03:46→16:43)
[2018-03-26] MEDS: LEVOTHYROXINE SODIUM 0.088 MG TABLET PO SCH (06:32)
[2018-03-26] MEDS: AMPICILLIN SODIUM/SULBACTAM NA 3 GM in NORMAL SALINE 100 ML IV SCH ×3 (06:32→17:46)
[2018-03-26] MEDS: IPRATROPIUM/ALBUTEROL 0.5-2.5 MG/3 ML AMPUL NEB SCH ×3 (08:22→20:40)
[2018-03-26] MEDS: ENOXAPARIN SODIUM INJ 40 MG/0.4 ML DISP.SYRIN SUBCUT SCH (10:42)
[2018-03-26] MEDS: FUROSEMIDE 80 MG TABLET PO SCH (10:44)
[2018-03-26] MEDS: FAMOTIDINE 20 MG TABLET PO SCH (10:44)
[2018-03-26] MEDS: GUAIFENESIN 600 MG TABLET.SA PO SCH (10:44)
[2018-03-26] MEDS: SENNOSIDES/DOCUSATE 8.6-50 MG 1 EACH TABLET PO SCH ×2 (10:45→17:47)
[2018-03-26] MEDS: LISINOPRIL 5 MG TABLET PO SCH (10:46)
[2018-03-26] MEDS: ROFLUMILAST 500 MCG TABLET PO SCH (10:46)
[2018-03-26] MEDS: SALMETEROL XINAFOATE DISKUS 50 MCG/1 DOSE 28 DOSE IH SCH (10:47)
[2018-03-26] MEDS: BACITRACIN ZINC OINTMENT 15 GM TP SCH (10:48)
[2018-03-26] MEDS: TIOTROPIUM BROMIDE DPI 5 CAP/KIT (18 MCG/CAP) IH SCH (10:48)
--- NOTE | 2018-03-26 15:35 | PDOC TRANSFER SUMMARY ---
<JUWAN FERNANDEZ - Last Filed: 03/26/18 15:15> General Admission Date/PCP: 03/18/18 08:07 ARASELI AGUILAR MD Admission Date: 03/18/18 Transfer Date: 03/26/18 Resuscitation Status: Full Code - Transfer Diagnosis (1) COPD (chronic obstructive pulmonary disease) Is this a current diagnosis for this admission?: Yes (2) CHF (congestive heart failure) Is this a current diagnosis for this admission?: Yes (3) Diabetes Is this a current diagnosis for this admission?: Yes (4) Left arm cellulitis Is this a current diagnosis for this admission?: Yes (5) Abdominal pain Is this a current diagnosis for this admission?: Yes (6) UTI (urinary tract infection) Is this a current diagnosis for this admission?: Yes (7) Delirium Is this a current diagnosis for this admission?: Yes - Transfer Medications Home Medications: Albuterol Sulfate [Proair HFA Inhalation Aerosol 8.5 gm MDI] 2 puff IH Q6HP PRN 03/04/18 Furosemide [Lasix 40 mg Tablet] 40 mg PO DAILY 03/04/18 Glimepiride [Amaryl 1 mg Tablet] 1 mg PO DAILY 03/04/18 Hydrocodone Bit/Acetaminophen [Hydrocodon-Acetaminophen 5-325] 1 tab PO Q8HP PRN 03/04/18 Ipratropium/Albuterol Sulfate [Iprat-Albut 0.5-3(2.5) mg/3 ml] 3 ml NEB Q6 03/04 Lactulose [Enulose 10 gm/15 mL Oral Solution] 30 ml PO DAILY 03/04/18 Levalbuterol HCl [Xopenex Neb 1.25 mg/3 ml Ampul] 1.25 mg NEB Q4HP PRN 03/04/18 Levothyroxine Sodium [Synthroid 0.088 mg Tablet] 0.088 mg PO Q6AM 03/04/18 Lisinopril [Prinivil 5 mg Tablet] 5 mg PO DAILY 03/04/18 Metformin HCl [Metformin HCl ER] 500 mg PO BID 03/04/18 Pantoprazole Sodium [Protonix] 40 mg PO DAILY 03/04/18 Sertraline HCl [Zoloft 50 mg Tablet] 50 mg PO DAILY 03/04/18 Tiotropium [place] [Spiriva Handihaler 5 Cap/Kit (18 Mcg/Cap)] 1 puff IH DAILY 03/04/18 Tramadol HCl [Ultram 50 mg Tablet] 50 mg PO Q12HP PRN 03/04/18 Transfer Medications: Current Medications Acetaminophen (Tylenol 325 Mg Tablet) 650 mg PO Q4HP PRN PRN Reason: FEVER >101 Stop: 04/17/18 10:45 Albuterol (Ventolin 0.083% Neb 2.5 Mg/3 Ml Ampul) 2.5 mg NEB RTQ4HP PRN PRN Reason: SHORTNESS OF BREATH Stop: 04/17/18 10:45 Albuterol/Ipratropium (Duoneb 3 Ml Ampul) 3 ml NEB [id number] [facility] Stop: 04/25/18 07:59 Last Admin: 03/26/18 14:08 Dose: 3 ml Bacitracin (Bacitracin Oint 15 Gm) 1 applic TP DAILY [facility] Stop: 03/27/18 19:59 Last Admin: 03/26/18 10:48 Dose: 1 applic Dextrose (Dextrose Inj 50% Syringe (25 Gm/50 Ml)) 12.5 gm IV PRN PRN; Protocol PRN Reason: FOR BG 50-69 IN ALERT PATIENT Stop: 04/17/18 10:57 Dextrose (Dextrose Inj 50% Syringe (25 Gm/50 Ml)) 25 gm IV PRN PRN; Protocol PRN Reason: PER PROTOCOL Stop: 04/17/18 10:57 Enoxaparin Sodium (Lovenox Inj 40 Mg/0.4 Ml Disp.Syrin) 40 mg SUBCUT DAILY [facility] Stop: 04/17/18 12:59 Last Admin: 03/26/18 10:42 Dose: 40 mg Famotidine (Pepcid 20 Mg Tablet) 20 mg PO Q12 SAM Stop: 04/17/18 11:59 Last Admin: 03/26/18 10:44 Dose: 20 mg Furosemide (Lasix 80 Mg Tablet) 80 mg PO DAILY SAM Stop: 04/19/18 09:59 Last Admin: 03/26/18 10:44 Dose: 80 mg Glucagon (Glucagen Inj 1 Mg Vial) 1 mg IM PRN PRN; Protocol PRN Reason: Evaluate for BG < 70 Stop: 04/17/18 10:57 Glucose (Glutose 40% Gel 15 Gm Tube) 15 gm PO PRN PRN; Protocol PRN Reason: FOR BG 50-69 IN ALERT PATIENT Stop: 04/17/18 10:57 Glucose (Glutose 40% Gel 15 Gm Tube) 30 gm PO PRN PRN; Protocol PRN Reason: FOR BG < 50 IN ALERT PATIENT Stop: 04/17/18 10:57 Guaifenesin (Mucinex Sr 600 Mg Tablet.Sa) 600 mg PO Q12 SAM Stop: 04/20/18 21:59 Last Admin: 03/26/18 10:44 Dose: 600 mg Levofloxacin/Dextrose (Levaquin Rtu 750 Mg/D5w 150 Ml Premix) 750 mg in 150 mls @ 100 mls/hr IV QPM SAM Stop: 03/26/18 17:59 Last Infusion: 03/26/18 03:44 Dose: Infused Ampicillin Sodium/Sulbactam (Sodium 3 gm/ Sodium Chloride) 100 mls @ 100 mls/ hr IV Q6 SAM Stop: 03/30/18 11:59 Last Admin: 03/26/18 12:52 Dose: 100 mls/hr, 100 mls/hr Insulin Human Regular (Humulin R (Pyxis) Insulin 100 Unit/Ml 3ml) 0 - 12 unit SUBCUT ACHSP PRN; Protocol PRN Reason: PER PROTOCOL Stop: 04/17/18 10:57 Last Admin: 03/25/18 23:44 Dose: 8 units Lactulose (Cephulac Syrup 20 Gm/30 Ml Udcup) 20 gm PO DAILYP PRN PRN Reason: CONSTIPATION Stop: 04/21/18 12:12 Last Admin: 03/24/18 10:50 Dose: 20 gm Levalbuterol HCl (Xopenex Neb 1.25 Mg/3 Ml Ampul) 1.25 mg NEB RTQ4HP PRN PRN Reason: SHORTNESS OF BREATH Stop: 04/19/18 18:06 Levothyroxine Sodium (Synthroid 0.088 Mg Tablet) 0.088 mg PO Q6AM SAM Stop: 04/17/18 12:59 Last Admin: 03/26/18 06:32 Dose: 0.088 mg Lisinopril (Prinivil 5 Mg Tablet) 5 mg PO DAILY SAM Stop: 04/17/18 11:59 Last Admin: 03/26/18 10:46 Dose: 5 mg Methylprednisolone Sodium Succinate (Solu-Medrol Inj/Pf 125 Mg/2 Ml Sdv) 60 mg IV Q6A SAM Stop: 04/23/18 02:59 Last Admin: 03/26/18 10:42 Dose: 60 mg Ondansetron HCl (Zofran Inj/Pf 4 Mg/2 Ml Sdv) 4 mg IV Q6HP PRN PRN Reason: FOR NAUSEA/VOMITING Stop: 04/17/18 10:45 Polyethylene Glycol (Miralax Powder 17 Gm/Packet) 17 gm PO DAILYP PRN PRN Reason: FOR CONSTIPATION Stop: 04/21/18 12:12 Quetiapine Fumarate (Seroquel 25 Mg Tablet) 12.5 mg PO QHS SAM Stop: 04/23/18 21:59 Last Admin: 03/25/18 21:33 Dose: 12.5 mg Roflumilast (Daliresp 500 Mcg Tablet) 250 mcg PO DAILY SAM Stop: 04/17/18 12:59 Last Admin: 03/26/18 10:46 Dose: 250 mcg Salmeterol Xinafoate (Serevent Diskus 50 Mcg/Dose 28 Dose/Diskus) 50 mcg IH Q12 SAM Stop: 04/20/18 12:29 Last Admin: 03/26/18 10:47 Dose: 1 puff Senna/Docusate Sodium (Senna Plus Tablet) 2 each PO BID SAM Stop: 04/20/18 11:29 Last Admin: 03/26/18 10:45 Dose: 2 each Sertraline HCl (Zoloft 50 Mg Tablet) 50 mg PO QHS SAM Stop: 04/17/18 21:59 Last Admin: 03/25/18 21:33 Dose: 50 mg Tiotropium [place] (Spiriva Handihaler 5 Cap/Kit (18 Mcg/Cap)) 1 cap IH DAILY SAM Stop: 04/17/18 12:59 Last Admin: 03/26/18 10:48 Dose: 1 cap - Allergies Allergies/Adverse Reactions: azithromycin Allergy (Verified 03/11/18 14:07) amoxicillin [Amoxicillin] Adverse Reaction (Verified 03/11/18 14:07) visual hallucinations erythromycin base [Erythromycin Base] Adverse Reaction (Verified 03/11/18 14:07) visual hallucinations Potassium Clavulanate * [From Augmentin] Adverse Reaction (Verified 08/12/18 14: 07) visual hallucinations - Diet/Activity Discharge Diet: As Tolerated Hospital Course Hospital Course: H&P PER DUT: TRENTON MCCOY is a 72 year old female with a past medical history of COPD, hypertension, diastolic heart failure, CAD, and hyperlipidemia, who presented to the ED via EMS complaining of shortness of breath and chest pain with generalized weakness. Unfortunately there are no family members at bedside to give me a history. She herself is a very poor historian and unable to tell me accurate history. I went into the room she was very sleepy and just did not want to open her eyes. States she is very tired as she has not slept so well. States she has been feeling some shortness of breath with some chest pain for a day or so. States that she is not sure who called EMS but they brought her here. States she lives at home and gets home health to help her out. Most of her information is retrieved from patient history and EMR. Looking back into her chart she is being admitted to the hospital multiple occasions in the last 6 months and most of the time it is for COPD exacerbation and pneumonia. She was just admitted to the hospital a week ago and discharged after urinary tract infection and COPD exacerbation. She was just treated with IV antibiotics. Patient does have a wound on her left arm as per nursing and I am told that physical therapy at home was trying to work with her but as she became unbalanced they try to catch her from falling and grabbed her left arm which led to a skin tear and now it is painful. Otherwise patient denies fever/chills , abdominal pain, nausea/vomiting, dysuria, headache, dizziness or visual disturbances. She admits to feeling tired overall. HOSPITAL COURSE: 72-year-old female with extensive history including CHF, CAD, UT, HTN, asthma, COPD (home O2 dependent, chronic respiratory failure), DM 2, hypothyroidism, CKD , GERD, arthritis, dementia, depression, anemia and lung cancer with brain metastasis who is well-known to the hospitalist service admitted 03/18/2018 for a COPD exacerbation and CHF exacerbation. Of note, the patient was recently discharged from [facility] on 03/08/2018 for a COPD exacerbation and UTI. This admission , her symptoms were treated with IV steroids, scheduled and as needed nebulizers , twice daily Mucinex, and empiric antibiotic coverage with IV Levaquin in the setting of severe COPD exacerbation. The patient received a total of 5 days of antibiotics, and during that time she remained afebrile and nontoxic. No need to continue antibiotic therapy longer than 5 days. The patient's CHF resolved by continuing home dose of PO lasix and abstaining from IV fluids, allowing her to adequately hydrate with PO intake. ProBNP improved from 2700-->1600. Previous echocardiogram demonstrates preserved LVEF, no need to repeat study. The patient's initial UA was not indicative of UTI but urine culture grew enterococcus. C&S reveal resistance to levaquin and Vanomycin ANTON is 2, so she was treated with Unasyn. The patient never had urinary complaints (dysuria, urgency, frequency), so her antibiotics were discontinued after approximately 5 days. Of note, the patient has a skin tear to her Left upper extremity. Apparently, the patient fell at home when she was ambulating with home health nurse. Originally concerned for cellulitis, but erythema was minimal, there was no drainage coming from the open wound, and the patient remained afebrile/ nontoxic. Her wound was treated with topical bacitracin and dressing changes per nursing. Finally, on HD# 6 Nursing staff reported the patient had become increasingly confused and that the patient was not sleeping at night. She was exhibiting signs of confusion, speaking nonsensically and oftentimes calling out to the nurses station rather than using her call l[place]. The patient was started on low dose seroquel QHS PRN as a sleep aid. Nursing encouraged day/night cues. This combination therapy seem to aid in the patient getting a restful night's sleep and thereby treating her acute confusion. After 8 days in the hospital, the patient was deemed safe for discharge. The patient's respiratory status had returned to baseline, she was on her home dose of supplemental oxygen via nasal cannula, vital signs stable, no adventitious lung sounds, no evidence of active infection. The patient requires snf rehab for physical therapy in order for the patient to regain her ability to ambulate independently (with a walker). The patient agrees to transfer to [facility]. For any further information regarding the patient's hospitalization, please refer to the EMR. Physical Exam Vital Signs: Temp Pulse Resp BP Pulse Ox 99.3 F 109 H 16 143/78 H 99 03/26/18 12:09 03/26/18 14:09 03/26/18 14:09 03/26/18 12:09 03/26/18 14:09 Intake & Output 03/25/18 03/26/18 03/27/18 06:59 06:59 06:59 Intake Total 1202 1657 100 Output Total 2 Balance 1202 1655 100 Weight 88.3 kg 88.1 kg Results Laboratory Results: 03/24/18 04:50 03/25/18 06:14 03/18/18 03/18/18 03/19/18 11:41 17:30 06:47 Troponin I 0.056 0.042 NT-Pro-B Natriuret Pep 1680 H 03/20/18 03/22/18 03/23/18 05:24 11:15 07:24 Troponin I NT-Pro-B Natriuret Pep 2730 H 1370 H 1450 H 03/24/18 03/25/18 04:50 06:14 Troponin I NT-Pro-B Natriuret Pep 1600 H 1940 H Impressions: Chest X-Ray 03/19/18 00:00 IMPRESSION: Small pleural effusions with the right improved since the prior study. No acute infiltrate. No mass. KUB X-Ray 03/21/18 00:00 IMPRESSION: NO RADIOGRAPHIC EVIDENCE FOR ACUTE ABDOMINAL DISEASE. Head CT 03/24/18 17:31 IMPRESSION: STABLE CT APPEARANCE OF THE BRAIN. CHRONIC CHANGES OF ATROPHY AND MICROVASCULAR ISCHEMIA. NO ACUTE PROCESS. EVIDENCE OF ACUTE STROKE: NO. Status: Imported from PACS Plan Discharge Plan: DISCHARGE FROM [facility]. TRANSFER TO HALF-WAY FACILITY Time Spent: Greater than 30 Minutes <MICHELLE GARZON M - Last Filed: 04/03/18 16:43> General Admission Date/PCP: 03/18/18 08:07 ARASELI AGUILAR MD Physical Exam Vital Signs: Temp Pulse Resp BP Pulse Ox 99.1 F 107 H 18 136/73 H 98 03/26/18 17:16 03/26/18 20:40 03/26/18 20:40 03/26/18 17:16 03/26/18 20:40 Results Laboratory Results: 03/24/18 04:50 03/25/18 06:14 03/18/18 03/18/18 03/19/18 11:41 17:30 06:47 Troponin I 0.056 0.042 NT-Pro-B Natriuret Pep 1680 H 03/20/18 03/22/18 03/23/18 05:24 11:15 07:24 Troponin I NT-Pro-B Natriuret Pep 2730 H 1370 H 1450 H 03/24/18 03/25/18 04:50 06:14 Troponin I NT-Pro-B Natriuret Pep 1600 H 1940 H Impressions: Chest X-Ray 03/19/18 00:00 IMPRESSION: Small pleural effusions with the right improved since the prior study. No acute infiltrate. No mass. KUB X-Ray 03/21/18 00:00 IMPRESSION: NO RADIOGRAPHIC EVIDENCE FOR ACUTE ABDOMINAL DISEASE. Head CT 03/24/18 17:31 IMPRESSION: STABLE CT APPEARANCE OF THE BRAIN. CHRONIC CHANGES OF ATROPHY AND MICROVASCULAR ISCHEMIA. NO ACUTE PROCESS. EVIDENCE OF ACUTE STROKE: NO. Provider Note Provider Note: I have discussed this patient with INDIGO Fernandez in detail. I am in agreement with her evaluation and plan.
[2018-03-26] MEDS: INSULIN REG, HUMAN 100 UNIT/ML 3 ML VIAL (PYX) SUBCUT PRN (18:00)
[2018-03-26 18:14] VITALS: BP 136/73
== END 2018-03-26 21:33 | DRG 190 ==
LOC: ER 01:01 → EH 08:07 → 5 11:03
PROVIDERS: ADMIT Internal Medicine; ATTEND Internal Medicine
PROC: 3E0F73Z Introduction of Anti-inflammatory into Respiratory Tract, Via Natural or Artificial Opening (ICD-10-PCS; 2018-03-18)
PROC: 5A09457 Assistance with Respiratory Ventilation, 24-96 Consecutive Hours, Continuous Positive Airway Pressure (ICD-10-PCS; principal; 2018-03-19)
DX: J44.1 Chronic obstructive pulmonary disease with (acute) exacerbation (principal); I50.33 Acute on chronic diastolic (congestive) heart failure; I13.0 Hypertensive heart and chronic kidney disease with heart failure and stage 1 through stage 4 chronic kidney disease, or unspecified chronic kidney disease; C34.90 Malignant neoplasm of unspecified part of unspecified bronchus or lung; C79.31 Secondary malignant neoplasm of brain; L03.114 Cellulitis of left upper limb; N39.0 Urinary tract infection, site not specified; I25.10 Atherosclerotic heart disease of native coronary artery without angina pectoris; E78.5 Hyperlipidemia, unspecified; I95.9 Hypotension, unspecified; K21.9 Gastro-esophageal reflux disease without esophagitis; M19.90 Unspecified osteoarthritis, unspecified site; F17.200 Nicotine dependence, unspecified, uncomplicated; M54.5 Low back pain; E66.9 Obesity, unspecified; E11.22 Type 2 diabetes mellitus with diabetic chronic kidney disease; N18.9 Chronic kidney disease, unspecified; D64.9 Anemia, unspecified; B95.2 Enterococcus as the cause of diseases classified elsewhere; R41.0 Disorientation, unspecified; Z16.21 Resistance to vancomycin; F03.90 Unspecified dementia, unspecified severity, without behavioral disturbance, psychotic disturbance, mood disturbance, and anxiety; Z90.49 Acquired absence of other specified parts of digestive tract; I25.2 Old myocardial infarction; Z99.81 Dependence on supplemental oxygen; Z79.51 Long term (current) use of inhaled steroids; Z79.899 Other long term (current) drug therapy; Z79.84 Long term (current) use of oral hypoglycemic drugs; Z79.52 Long term (current) use of systemic steroids; Z88.0 Allergy status to penicillin; Z88.1 Allergy status to other antibiotic agents; Z68.31 Body mass index [BMI] 31.0-31.9, adult
CPT/HCPCS: 36415; 36600; 70450; 71045; 74018; 80048; 80053; 81001; 82803; 82962; 83735; 83880; 84100; 84484; 85025; 85027; 87040; 87086; 87088; 87186; 93005; 93010; 94640; 94660; 94667; 94668; 96365; 99285; G8978-GP; G8979-GP; G8987-GO; G8988-GO; G8989-GO; J0295; J0692; J1650; J1815; J1956; J2930; J3370; J3480; J3490; J7030; J7620

== ENCOUNTER 2018-04-08 16:46 | Emergency (ER) | payer MEDICARE, OTHER ==
[2018-04-08] MEDS ORDERED: IPRATROPIUM/ALBUTEROL 0.5-2.5 MG/3 ML AMPUL NEB ONE ×2 (16:57→18:04)
--- NOTE | 2018-04-08 16:57 | ER Document Report ---
ED General - General Stated Complaint: CHEST PAIN Time Seen by Provider: 04/08/18 16:53 Mode of Arrival: Medic Information source: Emergency Med Personnel Notes: This is a 72-year-old female with a past history of COPD (oxygen dependent), lung cancer with brain metastases,, hypertension, coronary artery disease, hyperlipidemia pneumonia who is brought in by EMS with shortness of breath and cough productive of sputum. TRAVEL OUTSIDE OF THE [place] IN LAST 30 DAYS: No - HPI Onset: Just prior to arrival Onset/Duration: Sudden Quality of pain: No pain Severity: None Pain Level: Denies Associated symptoms: Productive cough, Shortness of breath. denies: Fever Exacerbated by: Denies Relieved by: Denies Similar symptoms previously: Yes Recently seen / treated by doctor: Yes - Related Data Allergies/Adverse Reactions: azithromycin Allergy (Verified 03/11/18 14:07) amoxicillin [Amoxicillin] Adverse Reaction (Verified 03/11/18 14:07) visual hallucinations erythromycin base [Erythromycin Base] Adverse Reaction (Verified 03/11/18 14:07) visual hallucinations Potassium Clavulanate * [From Augmentin] Adverse Reaction (Verified 03/11/18 14: 07) visual hallucinations Past Medical History - General Information source: Patient - Social History Smoking Status: Former Smoker Cigarette use (# per day): No Chew tobacco use (# tins/day): No Frequency of alcohol use: None Drug Abuse: None Lives with: Family Family History: COPD, Malignancy - Lung cancer - Past Medical History Cardiac Medical History: Reports: Hx Congestive Heart Failure, Hx Coronary Artery Disease, Hx Heart Attack, Hx Hypertension Denies: Hx DVT, Hx Hypercholesterolemia, Hx Pulmonary Embolism Pulmonary Medical History: Reports: Hx Asthma, Hx Bronchitis, Hx COPD - 2 L nasal home oxygen, Hx Pneumonia, Hx Respiratory Failure - Chronic respiratory failure Denies: Hx Sleep Apnea, Hx Tuberculosis Neurological Medical History: Denies: Hx Seizures Endocrine Medical History: Reports: Hx Diabetes Mellitus Type 2, Hx Hypothyroidism. 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 Denies: Hx Cirrhosis, Hx Hepatitis, Hx Ulcer Musculoskeletal Medical History: Reports Hx Arthritis, Denies Hx Multiple Sclerosis, Reports Hx Musculoskeletal Deformity, Reports Hx Musculoskeletal Trauma Psychiatric Medical History: Reports: Hx Dementia, Hx Depression Denies: Hx Bipolar Disorder, Hx Schizophrenia Infectious Medical History: Reports: Hx C-Diff. Denies: Hx Hepatitis Past Surgical History: Reports: Hx Cholecystectomy, Hx Orthopedic Surgery - Foot surgery, Other - cataract bilateral - Immunizations Hx Diphtheria, Pertussis, Tetanus Vaccination: Yes Hx Pneumococcal Vaccination: 08/30/12 Review of Systems - Review of Systems Constitutional: denies: Chills, Fever EENT: No symptoms reported Cardiovascular: No symptoms reported Respiratory: See HPI Gastrointestinal: No symptoms reported Genitourinary: No symptoms reported Female Genitourinary: No symptoms reported Musculoskeletal: No symptoms reported Skin: No symptoms reported Hematologic/Lymphatic: No symptoms reported Neurological/Psychological: No symptoms reported Physical Exam - Vital signs Vitals: Temp Resp Pulse Ox 98 F 18 100 04/08/18 16:52 04/08/18 16:52 04/08/18 16:52 Notes: Physical exam: GENERAL: A 2-year-old female, alert and oriented 3, wheezing HEAD: Atraumatic, normocephalic. EYES: Pupils equal round and reactive to light, extraocular movements intact, sclera anicteric, conjunctiva are normal. ENT: TMs normal, nares patent, oropharynx clear without exudates. Moist mucous membranes. NECK: Normal range of motion, supple without obvious mass or JVD. LUNGS: Bilateral wheezing HEART: Regular rate and rhythm without murmurs, rubs or gallops. ABDOMEN: Soft, normoactive bowel sounds. No tenderness to palpation. No guarding, no rebound. No masses appreciated. EXTREMITIES: Normal range of motion, no pitting or edema. No clubbing or cyanosis. NEUROLOGICAL: Cranial nerves II through XII grossly intact. Normal speech, moving all extremities. PSYCH: Normal mood, normal affect. SKIN: Warm, Dry, normal turgor, no rashes or lesions noted. Course - Re-evaluation Re-evalutation: 04/08/18 19:56 Note: The patient was given nebulizers, IV Solu-Medrol and chest PT. She has done quite well. She is afebrile and her white count is reasonable. Her chest x-ray shows no pneumonia. She came in with cough productive with shortness of breath. She has COPD and she has had pneumonia in the past. In this particular instance she actually feels quite well. Given how she looks, I have given her the option of going home. The patient would like to go back to [facility]. Her lactic acid was elevated at 4. But at the same time, we had some difficulty getting the line and there is some question of whether this could be hemolyzed. In any event, repeat lung exam is much improved and she is smiling and she is eaten and would like to go home. - Vital Signs Vital signs: Temp Pulse Resp BP Pulse Ox 98.2 F 15 121/72 100 04/08/18 17:42 04/08/18 18:01 04/08/18 18:00 04/08/18 18:01 - Laboratory Result Diagrams: 04/08/18 17:40 04/08/18 17:40 Laboratory results interpreted by me: 04/08/18 04/08/18 04/08/18 17:40 17:40 17:40 RBC 2.79 L Hgb 8.9 L Hct 27.1 L RDW 16.4 H Seg Neuts % (Manual) 96 H Lymphocytes % (Manual) 2 L Monocytes % (Manual) 2 L Abs Lymphs (Manual) 0.2 L Carbon Dioxide 33 H Est GFR (Non-Af Amer) 53 L Glucose 182 H Lactic Acid 4.0 H Total Protein 5.7 L Albumin 3.2 L - Diagnostic Test Radiology reviewed: Image reviewed, Reports reviewed Discharge - Discharge Clinical Impression: COPD exacerbation Condition: Stable Disposition: HOME, SELF-CARE Additional Instructions: Continue current medicines, continue nebulizers as needed, return to the emergency room for any worsening short of breath or concerns or getting worse. Take the prednisone and a slow taper as described below: Take 6 tablets daily for 3 days. Then take 5 tablets daily for 3 days. Then take 4 tablets daily for 3 days. Then take 3 tablets daily for 3 days. Then take 2 tablets daily for 3 days. Then take 1 tablet daily for 3 days. Then take a half a tablet daily for 4 days. Prescriptions: Prednisone 10 mg PO DAILY #65 tablet Referrals: ARASELI AGUILAR MD [Primary Care Provider] - Follow up as needed
[2018-04-08 18:05] LABS: HEMATOCRIT 27.1 % (36.0-47.0); HEMOGLOBIN 8.9 g/dL (12.0-15.5); MEAN CORPUSCULAR HEMOGLOBIN 31.8 pg (27.0-33.4); MEAN CORPUSCULAR HGB CONC 32.7 g/dL (32.0-36.0); MEAN CORPUSCULAR VOLUME 97 fl (80-97); PLATELET COUNT 252 10^3/uL (150-450); RED BLOOD COUNT 2.79 10^6/uL (3.72-5.28); RED CELL DISTRIBUTION WIDTH 16.4 % (11.5-14.0); WHITE BLOOD COUNT 7.7 10^3/uL (4.0-10.5)
[2018-04-08] MEDS ORDERED: FUROSEMIDE INJ/PF 40 MG/4 ML SDV IV ONE (18:05)
[2018-04-08] MEDS ORDERED: METHYLPREDNISOLONE INJ 125 MG/2 ML SDV IV ONE (18:05)
--- NOTE | 2018-04-08 18:24 | RADIOLOGY REPORT (SQ) ---
EXAM DESCRIPTION: CHEST SINGLE VIEW COMPLETED DATE/TIME: 04/08/2018 6:03 pm REASON FOR STUDY: er 9 COMPARISON: 03/19/2018. CT dated 03/11/2018. EXAM PARAMETERS: NUMBER OF VIEWS: One view. TECHNIQUE: Single frontal radiographic view of the chest acquired. RADIATION DOSE: NA LIMITATIONS: None. FINDINGS: LUNGS AND PLEURA: Chronic scarring in the perihilar right lung. Otherwise clear. Previou sly seen small pleural effusions have resolved. MEDIASTINUM AND HILAR STRUCTURES: No masses. Contour normal. HEART AND VASCULAR STRUCTURES: Heart normal in size. Normal vasculature. BONES: No acute findings. HARDWARE: None in the chest. OTHER: No other significant finding. IMPRESSION: STABLE CHRONIC SCARRING. NO ACUTE FINDINGS. TECHNICAL DOCUMENTATION: JOB ID: [id number] [employer]- All Rights Reserved Reading location - IP/workstation name: [email or web address]
[2018-04-08 18:54] LABS: ABSOLUTE LYMPHOCYTES# (MANUAL) 0.2 10^3/uL (0.5-4.7); ABSOLUTE MONOCYTES # (MANUAL) 0.2 10^3/uL (0.1-1.4); ABSOLUTE NEUTROPHILS# (MANUAL) 7.4 10^3/uL (1.7-8.2); BASOPHILS % (MANUAL) 0 % (0-2); EOSINOPHILS % (MANUAL) 0 % (0-6); LYMPHOCYTES % (MANUAL) 2 % (13-45); MONOCYTES % (MANUAL) 2 % (3-13); SEGMENTED NEUTROPHILS % (MAN) 96 % (42-78); TOTAL CELLS COUNTED 100
[2018-04-08 18:55] LABS: OVALOCYTES SLIGHT; PLATELET COMMENT ADEQUATE; POIKILOCYTOSIS 1+; TEAR DROP CELLS SLIGHT
[2018-04-08 19:11] LABS: ALANINE AMINOTRANSFERASE 21 U/L (9-52); ALBUMIN 3.2 g/dL (3.5-5.0); ALKALINE PHOSPHATASE 82 U/L (38-126); ANION GAP 9 (5-19); ASPARTATE AMINO TRANSFERASE 15 U/L (14-36); BILIRUBIN,DIRECT 0.3 mg/dL (0.0-0.4); BILIRUBIN,TOTAL 0.3 mg/dL (0.2-1.3); BLOOD UREA NITROGEN 17 mg/dL (7-20); CALCIUM 8.6 mg/dL (8.4-10.2); CARBON DIOXIDE 33 mmol/L (22-30); CHLORIDE 100 mmol/L (98-107); GLUCOSE 182 mg/dL (75-110); POTASSIUM 3.9 mmol/L (3.6-5.0); SODIUM 142.2 mmol/L (137-145); TOTAL PROTEIN 5.7 g/dL (6.3-8.2)
[2018-04-08] MEDS ORDERED: IPRATROPIUM/ALBUTEROL 0.5-2.5 MG/3 ML AMPUL NEB PRN (20:21)
[2018-04-08 20:46] VITALS: BP 117/71
--- NOTE | 2018-04-08 22:51 | EKG REPORT ---
SEVERITY:- ABNORMAL ECG - SINUS TACHYCARDIA MULTIPLE ATRIAL PREMATURE COMPLEXES RIGHT BUNDLE BRANCH BLOCK : Confirmed by: Issa Martinez MD 08-Apr-2018 22:50:41
== END 2018-04-08 21:15 | disposition home or self-care (01) ==
LOC: ER 16:46
DX: J44.1 Chronic obstructive pulmonary disease with (acute) exacerbation (principal); R07.9 Chest pain, unspecified; Z99.81 Dependence on supplemental oxygen; I50.9 Heart failure, unspecified; I25.10 Atherosclerotic heart disease of native coronary artery without angina pectoris; I11.0 Hypertensive heart disease with heart failure; E11.9 Type 2 diabetes mellitus without complications; Z88.3 Allergy status to other anti-infective agents; Z88.0 Allergy status to penicillin; Z87.891 Personal history of nicotine dependence; I25.2 Old myocardial infarction; Z85.841 Personal history of malignant neoplasm of brain; Z85.118 Personal history of other malignant neoplasm of bronchus and lung
CPT/HCPCS: 93005; 94640 ×2; 99284; 96374; 96375; 36415; 87040; 85025; 87077; 80053; 83605; 71045; 93010; J1940; J2930; A9270; J7620

== ENCOUNTER 2018-06-20 20:00 | Inpatient (IN) | payer MEDICARE, OTHER ==
[2018-06-20] MEDS ORDERED: ACETAMINOPHEN 325 MG SUPP.RECT PR ONE (20:14)
[2018-06-20] MEDS ORDERED: NORMAL SALINE 1000 ML 500 ML IV ONE (20:14)
--- NOTE | 2018-06-20 20:21 | ER Document Report ---
ED Respiratory Problem <CAROLE HERNANDEZ - Last Filed: 06/20/18 22:23> - General TRAVEL OUTSIDE OF THE [place] IN LAST 30 DAYS: No <SJ TRENT - Last Filed: 06/21/18 01:59> - General Stated Complaint: ALTERED MENTAL STATUS Time Seen by Provider: 06/20/18 20:07 Notes: Patient is a 72 year old female that comes from [facility] for chief complaint of altered mental status and fever. Reportedly patient started acting strange after 5:00 this evening, was found to have a fever, she will not answer my questions at this time and is just closing her eyes and moaning. Temperature 102.2 F on arrival. Patient has a congested cough on my evaluation, no other reported symptoms by EMS. Past medical history includes COPD, CHF, hypertension, type 2 diabetes. She is on 3 L nasal cannula at all times. She is full code. (SJ TRENT) - Related Data Allergies/Adverse Reactions: azithromycin Allergy (Verified 06/20/18 20:48) amoxicillin [Amoxicillin] Adverse Reaction (Verified 06/20/18 20:48) visual hallucinations erythromycin base [Erythromycin Base] Adverse Reaction (Verified 06/20/18 20:48) visual hallucinations Potassium Clavulanate * [From Augmentin] Adverse Reaction (Verified 06/20/18 20: 48) visual hallucinations Past Medical History - General Information source: Patient - Social History Smoking Status: Former Smoker Drug Abuse: None Lives with: [facility] Family History: COPD, Malignancy - Lung cancer - Past Medical History Cardiac Medical History: Reports: Hx Congestive Heart Failure, Hx Coronary Artery Disease, Hx Heart Attack, Hx Hypertension Denies: Hx DVT, Hx Hypercholesterolemia, Hx Pulmonary Embolism Pulmonary Medical History: Reports: Hx Asthma, Hx Bronchitis, Hx COPD - 2 L nasal home oxygen, Hx Pneumonia, Hx Respiratory Failure - Chronic respiratory failure Denies: Hx Sleep Apnea, Hx Tuberculosis Neurological Medical History: Denies: Hx Seizures Endocrine Medical History: Reports: Hx Diabetes Mellitus Type 2, Hx Hypothyroidism. 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 Denies: Hx Cirrhosis, Hx Hepatitis, Hx Ulcer Musculoskeletal Medical History: Reports Hx Arthritis, Denies Hx Multiple Sclerosis, Reports Hx Musculoskeletal Deformity, Reports Hx Musculoskeletal Trauma Psychiatric Medical History: Reports: Hx Dementia, Hx Depression Denies: Hx Bipolar Disorder, Hx Schizophrenia Infectious Medical History: Reports: Hx C-Diff. Denies: Hx Hepatitis Past Surgical History: Reports: Hx Cholecystectomy, Hx Orthopedic Surgery - Foot surgery, Other - cataract bilateral - Immunizations Hx Diphtheria, Pertussis, Tetanus Vaccination: Yes Hx Pneumococcal Vaccination: 08/30/12 <SJ TRENT - Last Filed: 06/21/18 01:59> Review of Systems - Review of Systems Constitutional: See HPI EENT: No symptoms reported Cardiovascular: No symptoms reported Respiratory: See HPI Gastrointestinal: No symptoms reported Genitourinary: No symptoms reported Female Genitourinary: No symptoms reported Musculoskeletal: No symptoms reported Skin: No symptoms reported Hematologic/Lymphatic: No symptoms reported Neurological/Psychological: See HPI <SJ TRENT - Last Filed: 06/21/18 01:59> Physical Exam <DAVIDCAROLE - Last Filed: 06/20/18 22:23> <SJ TRENT - Last Filed: 06/21/18 01:59> - Vital signs Vitals: Temp 102.2 F H 06/20/18 20:05 - Notes Notes: GENERAL: Complains when interacted with, confused, moaning intermittently, eyes closed. HEAD: Normocephalic, atraumatic. EYES: Pupils equal, round, and reactive to light. Extraocular movements intact. ENT: Oral mucosa dry, tongue midline. Oropharynx unremarkable. Airway patent. Nares patent, no nasal septal hematoma, TM's intact. NECK: Full range of motion. Supple. Trachea midline. LUNGS: Clear to auscultation bilaterally, no wheezes, rales, or rhonchi. No respiratory distress. HEART: Tachycardic, normal rhythm. No murmur ABDOMEN: Soft, non-tender. Non-distended. Bowel sounds present in all 4 quadrants. GENITOURINARY: No rash or concerning external findings EXTREMITIES: Moves all 4 extremities spontaneously. No edema, normal radial and dorsalis pedis pulses bilaterally. No cyanosis. BACK: no cervical, thoracic, lumbar midline tenderness. No saddle anesthesia, normal distal neurovascular exam. NEUROLOGICAL: Complains when interacted with, confused [cranial nerves II through XII grossly intact]. PSYCH: Normal affect, normal mood. SKIN: Hot skin, slightly flushed, no rashes or lesions noted. (SJ TRENT) Course - Laboratory Result Diagrams: 06/20/18 20:40 06/20/18 20:40 <CAROLE HERNANDEZ - Last Filed: 06/20/18 22:23> - Laboratory Result Diagrams: 06/20/18 20:40 06/20/18 20:40 <SJ TRENT - Last Filed: 06/21/18 01:59> - Re-evaluation Re-evalutation: Patient tachycardic, febrile, confused. Blood pressure is normal at 130s. Initiating septic protocol, will reevaluate closely. Difficulty obtaining IV access, I was able to place a right AC 20-gauge and give 500 cc bolus, after this unfortunately the IV infiltrated. After IV fluid bolus heart rate improved to about 130, however blood pressure has decreased into the 70s systolic. Placed a left AC 20-gauge, will need additional access. Will complete 2 liter bolus (30 cc per kg for septic shock). 06/20/18 21:10 Daughter came to bedside, states that patient had been complaining of mild lower abdominal pain and dysuria since yesterday. She also has a history of kidney stones and cholecystectomy. Patient was supposed to be discharged to go home to [place] tomorrow to be at home instead of in a rehab center. She states she has mild intermittent confusion but normally is coherent and oriented. Informed daughter that patient has a fever, confusion, and is most likely septic. Daughter has to leave, states she is close and contactable by phone number, listed as primary contact. CBC shows leukocytosis at 17,000 with left shift but no bandemia. Lactic acid is not elevated. Chemistry shows mild renal insufficiency. Chest x-ray with no acute findings. Patient was discussed with Dr. Smith. 06/20/18 Patient reevaluated bedside, she is more cooperative, she is improved. She still confused. She is still mildly tachycardic but this is significantly improved. Distal pulses intact. Initially patient responded well to fluid bolus but then map dropped to 50s and she was started on levophed. 06/20/18 I do still suspect pneumonia but this is not confirmed with chest x-ray. Because of reported abdominal pain, lack of urinary tract infection, and no definite source of the fever yet, will perform CAT scan to confirm the diagnosis and rule out acute abdomen. 06/20/18 23:[address] Contreras, internal medicine, recommends we check a troponin first because of patient's abdominal pain to make sure she was not having an MA. Pending probable admission to the ICU. 06/21/18 00:[address] Contreras. Patient's troponin is 0.089, however this is not significantly different from her very variable troponin readings in the past. Patient admitted to the ICU. (SJ TRENT) - Vital Signs Vital signs: Temp Pulse Resp BP Pulse Ox 98.5 F 26 H 107/57 L 100 06/20/18 22:28 06/21/18 01:16 06/21/18 01:16 06/21/18 01:16 - Laboratory Laboratory results interpreted by me: 06/20/18 06/20/18 06/20/18 20:40 20:40 20:40 WBC 17.4 H RBC 3.44 L Hgb 10.5 L Hct 31.6 L RDW 14.7 H Seg Neuts % (Manual) 86 H Lymphocytes % (Manual) 2 L Abs Neuts (Manual) 15.0 H Abs Lymphs (Manual) 0.3 L Abs Monocytes (Manual) 2.1 H VBG pH 7.47 H VBG HCO3 34.3 H Carbon Dioxide 33 H Creatinine 1.43 H Est GFR ( Amer) 43 L Est GFR (Non-Af Amer) 36 L Glucose 161 H Total Protein 5.8 L Albumin 3.1 L Procedures - Central Line Right Internal jugular Consent obtained: Yes Central line pre-insertion: Sterile PPE donned, Chloraprep applied Central line lumen type: Triple Anesthetic type: 1% Lidocaine mL's of anesthesia: 5 Ultrasound guided: Yes Line secured with sutures: Yes Central line post-insertion: Blood return from lumens, Biopatch applied, Sutured , Sterile dressing applied, Position confirmed w/ CXR Number of attempts: 1 Complications: No <CAROLE HERNANDEZ - Last Filed: 06/20/18 22:23> <SJ TRENT - Last Filed: 06/21/18 01:59> - Central Line Right Internal jugular Notes: 06/20/18 22:25 Dr. Abdalla at bedside during procedure. (CAROLE HERNANDEZ) Critical Care Note <CAROLE HERNANDEZ Nely - Last Filed: 06/20/18 22:23> - Critical Care Note Total time excluding time spent on procedures (mins): 40 - Septic shock, altered mental status <SJ TRENT - Last Filed: 06/21/18 01:59> - Critical Care Note Comments: Please allow 40 minutes of critical care time for evaluation and management patient with septic shock, pneumonia, altered mental status. Patient requiring multiple reevaluations, therapy including IV antibiotics and IV fluid resuscitation, requiring vasopressor administration and monitoring. Time spent in discussion with family member. Consultation and admission to the ICU. ( SJ TRENT) Discharge <CAROLE HERNANDEZ Nely - Last Filed: 06/20/18 22:23> - Discharge Admitting Provider: Hospitalist Unit Admitted: ICU <SJ TRENT - Last Filed: 06/21/18 01:59> - Discharge Clinical Impression: Cough, Septic shock Fever Qualifiers: Fever type: unspecified Qualified Code(s): R50.9 - Fever, unspecified Altered mental status Qualifiers: Altered mental status type: unspecified Qualified Code(s): R41.82 - Altered mental status, unspecified Pneumonia Qualifiers: Pneumonia type: due to unspecified organism Laterality: right Lung location: unspecified part of lung Qualified Code(s): J18.9 - Pneumonia, unspecified organism Condition: Serious Disposition: ADMITTED INPATIENT
[2018-06-20 20:49] LABS: VENOUS BLOOD BASE EXCESS 9.4 mmol/L; VENOUS BLOOD HCO3 34.3 mmol/L (20-32); VENOUS BLOOD PCO2 48.2 mmHg (35-63); VENOUS BLOOD PH 7.47 (7.30-7.42)
[2018-06-20 20:53] LABS: HEMATOCRIT 31.6 % (36.0-47.0); HEMOGLOBIN 10.5 g/dL (12.0-15.5); MEAN CORPUSCULAR HEMOGLOBIN 30.7 pg (27.0-33.4); MEAN CORPUSCULAR HGB CONC 33.4 g/dL (32.0-36.0); MEAN CORPUSCULAR VOLUME 92 fl (80-97); PLATELET COUNT 284 10^3/uL (150-450); RED BLOOD COUNT 3.44 10^6/uL (3.72-5.28); RED CELL DISTRIBUTION WIDTH 14.7 % (11.5-14.0); WHITE BLOOD COUNT 17.4 10^3/uL (4.0-10.5)
[2018-06-20 21:04] LABS: ALANINE AMINOTRANSFERASE 14 U/L (9-52); ALBUMIN 3.1 g/dL (3.5-5.0); ALKALINE PHOSPHATASE 69 U/L (38-126); ANION GAP 11 (5-19); ASPARTATE AMINO TRANSFERASE 20 U/L (14-36); BILIRUBIN,DIRECT 0.2 mg/dL (0.0-0.4); BILIRUBIN,TOTAL 0.4 mg/dL (0.2-1.3); BLOOD UREA NITROGEN 19 mg/dL (7-20); CARBON DIOXIDE 33 mmol/L (22-30); CHLORIDE 98 mmol/L (98-107); GLUCOSE 161 mg/dL (75-110); POTASSIUM 3.8 mmol/L (3.6-5.0); SODIUM 141.6 mmol/L (137-145); TOTAL PROTEIN 5.8 g/dL (6.3-8.2)
[2018-06-20 21:09] LABS: INTERNATIONAL RATION (INR) 0.97; PROTHROMBIN TIME 13.4 SEC (11.4-15.4)
[2018-06-20 21:10] LABS: ABSOLUTE LYMPHOCYTES# (MANUAL) 0.3 10^3/uL (0.5-4.7); ABSOLUTE MONOCYTES # (MANUAL) 2.1 10^3/uL (0.1-1.4); BASOPHILS % (MANUAL) 0 % (0-2); EOSINOPHILS % (MANUAL) 0 % (0-6); LYMPHOCYTES % (MANUAL) 2 % (13-45); MONOCYTES % (MANUAL) 12 % (3-13); SEGMENTED NEUTROPHILS % (MAN) 86 % (42-78); TOTAL CELLS COUNTED 100
[2018-06-20 21:11] LABS: ANISOCYTOSIS SLIGHT; OVALOCYTES 1+; POIKILOCYTOSIS 1+
[2018-06-20 21:12] LABS: PLATELET CLUMPS PRESENT; PLATELET COMMENT ADEQUATE
--- NOTE | 2018-06-20 21:23 | RADIOLOGY REPORT (SQ) ---
XR CHEST 1 VIEW HISTORY: Fever. COMPARISON: 04/08/2018 FINDINGS: Chronic scarring in the right perihilar region. Heart size is unchanged from prior study. Lungs are clear. No pleural effusion or pneumothorax is seen. No acute osseous findings. IMPRESSION: No acute cardiopulmonary abnormality.
[2018-06-20] MEDS ORDERED: LEVOFLOXACIN 750 MG/D5W RTU 750 MG/150 ML RTUPB IV ONE (21:31)
[2018-06-20] MEDS ORDERED: NORMAL SALINE 1000 ML 1,000 ML IV ONE (21:42)
[2018-06-20 21:51] LABS: APPEARANCE,URINE SLIGHTLY-CLOUDY; BILIRUBIN,URINE NEGATIVE (NEGATIVE); COLOR,URINE YELLOW; GLUCOSE, URINE NEGATIVE (NEGATIVE); KETONES,URINE NEGATIVE (NEGATIVE); LEUKOCYTE ESTERASE,URINE NEGATIVE (NEGATIVE); NITRITE,URINE NEGATIVE (NEGATIVE); PROTEIN,URINE NEGATIVE (NEGATIVE); URINE SPECIFIC GRAVITY 1.013; UROBILINOGEN,URINE NEGATIVE mg/dL (<2.0)
[2018-06-20] MEDS ORDERED: NOREPINEPHRINE BITARTRATE INJ/PF 4 MG/4 ML SDV IV ONE (22:11)
--- NOTE | 2018-06-20 23:00 | RADIOLOGY REPORT (SQ) ---
EXAM DESCRIPTION: XR CHEST 1 VIEW COMPLETED DATE/TME: 06/20/2018 22:23 CLINICAL HISTORY: 72 years, Female, line placement COMPARISON: X-ray chest 06/20/2018 at 8:47 PM NUMBER OF VIEWS: TECHNIQUE: LIMITATIONS: None. FINDINGS: Since the prior chest x-ray, a right jugular venous line has been inserted. The tip of this line is in the superior vena cava. There is emphysema. There is prominence of the right hilum, thought to represent scarring, based on a CT scan of the chest performed on 03/11/2018. IMPRESSION: The tip of the right jugular venous line is in the superior vena cava. Other findings as described. 2010 [employer]- All Rights Reserved
[2018-06-20 23:31] LABS: A TYPE INFLUENZA AG NEGATIVE (NEGATIVE); B INFLUENZA AG NEGATIVE (NEGATIVE)
--- NOTE | 2018-06-20 23:35 | RADIOLOGY REPORT (SQ) ---
EXAM DESCRIPTION: CT CHEST WITH IV CONTRAST, CT ABDOMEN PELVIS WITH IV CONTRAST COMPLETED DATE/TME: 06/20/2018 22:27 CLINICAL HISTORY: congested cough, fever COMPARISON: Chest CT March 11, 2018 TECHNIQUE: Contiguous axial images of the chest, abdomen and pelvis were obtained followed by reconstruction images.This exam was performed according to our departmental dose-optimization program, which includes automated exposure control, adjustment of the mA and/or kV according to patient size and/or use of iterative reconstruction technique. FINDINGS: Right paramediastinal changes within the lung parenchyma are unchanged compared with the prior examination and could be secondary to prior radiation therapy/scaring. However, compared with the prior examination, there is a new focal area of parenchymal consolidation within the posterior aspect of the right lower lung, image 33 which could be secondary to an acute infectious process/area of pneumonitis. Postobstructive atelectasis/pneumonitis is a consideration. Airway is small in caliber however could be secondary to an expiratory phase. Soft tissue abnormality at the level of the mediastinum is unchanged. There is a small right pleural fluid collection, decreased in size when compared with the prior examination. There is atherosclerosis. There is a calcified pulmonary nodule within the left lower lung. The aorta is of normal contour and tapering. There is no pleural fluid collection. There is no pneumothorax. Partially visualized air within the soft tissues of the upper extremities could be secondary to recent instrumentation. Patient is status post cholecystectomy. There is air within the biliary system not unusual after cholecystectomy. The liver is of decreased attenuation compatible with fatty infiltration. There is an exophytic right renal cyst measuring approximately 2.1 cm. Appendix was not visualized. The liver, spleen, pancreas and kidneys are otherwise within normal limits. There is no hydronephrosis or renal stones.. Aorta is of normal caliber and tapering. There is no free fluid in the abdomen or pelvis. There is no bowel obstruction. There is no stranding of the mesenteric fat to suggest an inflammatory response. The appendix is within normal limits. There is no pericecal inflammation. IMPRESSION: New focal area of parenchymal consolidation within the posterior aspect of the right lower lung, image 33 which could be secondary to an acute infectious process/area of pneumonitis. Postobstructive atelectasis/pneumonitis is a consideration. Small right pleural fluid collection, decreased when compared with the prior exam. Partially visualized air within the soft tissues of the upper extremities could be secondary to recent instrumentation. Please correlate. No acute intra-abdominal abnormality.
[2018-06-20] MEDS: DEXTROSE 5%-WATER 250 ML with NOREPINEPHRINE BITARTRATE 4 MG IV PRN ×2 (23:51)
[2018-06-21] MEDS ORDERED: INSULIN LISPRO 100 UNIT/ML 3 ML VIAL SUBCUT PRN (00:56)
[2018-06-21] MEDS ORDERED: GLUCAGON,HUMAN RECOMB 1 MG INJ IM PRN (00:56)
[2018-06-21] MEDS ORDERED: DEXTROSE 40% GEL 15 GM TUBE PO PRN ×2 (00:56)
[2018-06-21] MEDS ORDERED: IPRATROPIUM/ALBUTEROL 0.5-2.5 MG/3 ML AMPUL NEB PRN (00:56)
[2018-06-21] MEDS ORDERED: DEXTROSE 50%-WATER 25 GM/50 ML DISP.SYRIN IV PRN (00:56)
[2018-06-21] MEDS ORDERED: VANCOMYCIN HCL 1,000 MG in DEXTROSE 5%-WATER 250 ML IV ONE (01:00)
[2018-06-21] MEDS ORDERED: NORMAL SALINE 1000 ML 1,000 ML IV PRN (01:00)
[2018-06-21] MEDS ORDERED: VANCOMYCIN HCL 0 MG in DEXTROSE 5%-WATER 250 ML IV NR (01:00)
[2018-06-21] MEDS ORDERED: DEXTROSE 5%-WATER 250 ML with NOREPINEPHRINE BITARTRATE 4 MG IV PRN ×2 (01:00)
[2018-06-21] MEDS ORDERED: VANCOMYCIN HCL INJ 1000 MG VIAL ONE (01:29)
[2018-06-21] MEDS: DEXTROSE 5%-WATER 250 ML with NOREPINEPHRINE BITARTRATE 4 MG IV PRN ×2 (02:00)
[2018-06-21] MEDS: GUAIFENESIN SYRP 200 MG/10 ML UDC PO PRN (02:57)
--- NOTE | 2018-06-21 06:42 | PDOC H&P ---
History of Present Illness Admission Date/PCP: 06/21/18 00:15 BAKARI VELARDE MD Patient complains of: Altered mental status History of Present Illness: TRENTON MCCOY is a 72 year old female who is a long-term correction resident with a chief complaint of altered mental status and fever. 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 Symptoms began 4 hours prior to presentation. In the emergency room she is unable to answer questions with moaning, hypotension, a temperature of 100.2 and a nonproductive cough. CT reveals right-sided infiltrate, CBC with leukocytosis. She has a right sided internal jugular central line placed receives 2 L of saline and empiric antibiotics then referred to the hospitalist for admission. Past Medical History Cardiac Medical History: Reports: Congestive Heart Failure, Coronary Artery Disease, Myocardial Infarction, Hypertension Denies: DVT, Hyperlipidema, Pulmonary Embolism Pulmonary Medical History: Reports: Asthma, Bronchitis, Chronic Obstructive Pulmonary Disease (COPD) - 2 L nasal home oxygen, Pneumonia, Respiratory Failure - Chronic respiratory failure Denies: Sleep Apnea, Tuberculosis Neurological Medical History: Denies: Seizures Endocrine Medical History: Reports: Diabetes Mellitus Type 2, Hypothyroidism Denies: Diabetes Mellitus Type 1, Hyperthyroidism Renal/ Medical History: Denies: End Stage Renal Disease Malignancy Medical History: Reports: Brain Cancer - Lung cancer with brain metastases, 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 GI Medical History: Reports: Gastroesophageal Reflux Disease Denies: Cirrhosis, Hepatitis Musculoskeltal Medical History: Reports: Arthritis Psychiatric Medical History: Reports: Dementia, Depression Denies: Bipolar Disorder Hematology: Reports: Anemia, Bleeding Tendencies Infectious Medical History: Reports: Clostridium Difficile Past Surgical History Past Surgical History: Reports: Cholecystectomy, Orthopedic Surgery - Foot surgery, Other - cataract bilateral Social History Information Source: Emergency Med Personnel, [facility] Records Lives with: [facility] Smoking Status: Former Smoker Frequency of Alcohol Use: None Hx Recreational Drug Use: No Drugs: None Hx Prescription Drug Abuse: No - Advance Directive Resuscitation Status: Full Code Family History Family History: COPD, Malignancy - Lung cancer Parental Family History Reviewed: No - Unobtainable Children Family History Reviewed: No Sibling(s) Family History Reviewed.: No - Unobtainable Medication/Allergy Home Medications: Albuterol Sulfate [Proair HFA Inhalation Aerosol 8.5 gm MDI] 2 puff IH Q6HP PRN 03/04/18 Furosemide [Lasix 40 mg Tablet] 40 mg PO DAILY 03/04/18 Glimepiride [Amaryl 1 mg Tablet] 1 mg PO DAILY 03/04/18 Hydrocodone Bit/Acetaminophen [Hydrocodon-Acetaminophen 5-325] 1 tab PO Q8HP PRN 03/04/18 Ipratropium/Albuterol Sulfate [Iprat-Albut 0.5-3(2.5) mg/3 ml] 3 ml NEB Q6 03/04 Lactulose [Enulose 10 gm/15 mL Oral Solution] 30 ml PO DAILY 03/04/18 Levalbuterol HCl [Xopenex Neb 1.25 mg/3 ml Ampul] 1.25 mg NEB Q4HP PRN 03/04/18 Levothyroxine Sodium [Synthroid 0.088 mg Tablet] 0.088 mg PO Q6AM 03/04/18 Lisinopril [Prinivil 5 mg Tablet] 5 mg PO DAILY 03/04/18 Metformin HCl [Metformin HCl ER] 500 mg PO BID 03/04/18 Pantoprazole Sodium [Protonix] 40 mg PO DAILY 03/04/18 Sertraline HCl [Zoloft 50 mg Tablet] 50 mg PO DAILY 03/04/18 Tiotropium [place] [Spiriva Handihaler 5 Cap/Kit (18 Mcg/Cap)] 1 puff IH DAILY 03/04/18 Tramadol HCl [Ultram 50 mg Tablet] 50 mg PO Q12HP PRN 03/04/18 Nystatin/Triamcin [Mycolog-II Cream 15 gm] 1 applic TP Q6HP PRN #1 tube Roflumilast [Daliresp 500 Mcg Tablet] 250 mcg PO DAILY #30 tablet 03/08/18 Famotidine [Pepcid 20 mg Tablet] 20 mg PO Q12 tablet 03/26/18 Polyethylene Glycol 3350 [Miralax Powder 17 gm/Packet] 17 gm PO DAILYP PRN powd.pack 03/26/18 Quetiapine Fumarate [Seroquel 25 mg Tablet] 12.5 mg PO QHS tablet 03/26/18 Sennosides/Docusate 8.6-50 mg [Senna Plus Tablet] 2 each PO BID tablet Prednisone 10 mg PO DAILY #65 tablet 04/08/18 Allergies/Adverse Reactions: azithromycin Allergy (Verified 06/20/18 20:48) amoxicillin [Amoxicillin] Adverse Reaction (Verified 06/20/18 20:48) visual hallucinations erythromycin base [Erythromycin Base] Adverse Reaction (Verified 06/20/18 20:48) visual hallucinations Potassium Clavulanate * [From Augmentin] Adverse Reaction (Verified 06/20/18 20: 48) visual hallucinations Review of Systems ROS unobtainable: Due to mental status Physical Exam Vital Signs: Temp Pulse Resp BP Pulse Ox 98.9 F 114 H 22 H 116/74 98 06/21/18 04:59 06/21/18 04:59 06/21/18 04:59 06/21/18 04:59 06/21/18 04:59 Intake & Output 06/19/18 06/20/18 06/21/18 11:59 11:59 11:59 Intake Total 32 Balance 32 Weight 70 kg General appearance: PRESENT: disheveled, obese, severe distress Head exam: PRESENT: atraumatic, normocephalic Eye exam: PRESENT: conjunctiva pink, EOMI, PERRLA. ABSENT: scleral icterus Ear exam: PRESENT: normal external ear exam Mouth exam: PRESENT: moist, tongue midline Neck exam: ABSENT: carotid bruit, JVD, lymphadenopathy, thyromegaly Respiratory exam: PRESENT: clear to auscultation jeff. ABSENT: rales, rhonchi, wheezes Cardiovascular exam: PRESENT: RRR. ABSENT: diastolic murmur, rubs, systolic murmur Pulses: PRESENT: normal dorsalis pedis pul Vascular exam: PRESENT: normal capillary refill GI/Abdominal exam: PRESENT: normal bowel sounds, soft. ABSENT: distended, guarding, mass, organolmegaly, rebound, tenderness Rectal exam: PRESENT: deferred Extremities exam: PRESENT: full ROM. ABSENT: calf tenderness, clubbing, pedal edema Neurological exam: PRESENT: altered, oriented to person, CN II-XII grossly intact Psychiatric exam: PRESENT: appropriate affect, normal mood. ABSENT: homicidal ideation, suicidal ideation Skin exam: PRESENT: dry, intact, warm. ABSENT: cyanosis, rash Results Impressions: Chest X-Ray 06/20/18 22:23 IMPRESSION: The tip of the right jugular venous line is in the superior vena cava. Other findings as described. 2010 [employer]- All Rights Reserved Abdomen/Pelvis CT 06/20/18 22:27 IMPRESSION: New focal area of parenchymal consolidation within the posterior aspect of the right lower lung, image 33 which could be secondary to an acute infectious process/area of pneumonitis. Postobstructive atelectasis/pneumonitis is a consideration. Small right pleural fluid collection, decreased when compared with the prior exam. Partially visualized air within the soft tissues of the upper extremities could be secondary to recent instrumentation. Please correlate. No acute intra-abdominal abnormality. Chest CT 06/20/18 22:27 IMPRESSION: New focal area of parenchymal consolidation within the posterior aspect of the right lower lung, image 33 which could be secondary to an acute infectious process/area of pneumonitis. Postobstructive atelectasis/pneumonitis is a consideration. Small right pleural fluid collection, decreased when compared with the prior exam. Partially visualized air within the soft tissues of the upper extremities could be secondary to recent instrumentation. Please correlate. No acute intra-abdominal abnormality. Assessment & Plan - Diagnosis (1) Pneumonia Qualifiers: Pneumonia type: due to unspecified organism Laterality: right Lung location: unspecified part of lung Qualified Code(s): J18.9 - Pneumonia, unspecified organism Is this a current diagnosis for this admission?: Yes Plan: Healthcare associated pneumonia. Empiric vancomycin, Levaquin initiated, BiPAP support as tolerated, follow-up CBC and blood culture (2) Septic shock Is this a current diagnosis for this admission?: Yes Plan: Steroid-dependent, Solu-Cortef initiated, IV fluid challenge, Sidhu catheter for strict I's and O's (3) Altered mental status Qualifiers: Altered mental status type: unspecified Qualified Code(s): R41.82 - Altered mental status, unspecified Is this a current diagnosis for this admission?: Yes Plan: Encephalopathy secondary to #1. Supportive care - Time Time Spent: 50 to 70 Minutes - Inpatient Certification Medical Necessity: Need Close Monitoring Due to Risk of Patient Decompensation
[2018-06-21] MEDS: HEPARIN SOD (PORCINE) 5,000 UNIT/ML 1 ML SYRINGE SUBCUT SCH ×3 (06:44→23:04)
[2018-06-21] MEDS: LEVOTHYROXINE SODIUM 0.088 MG TABLET PO SCH (06:44)
[2018-06-21] MEDS ORDERED: METHYLPREDNISOLONE INJ 125 MG/2 ML SDV IV ONE (06:45)
[2018-06-21 07:25] LABS: ABSOLUTE LYMPHOCYTES (AUTO) 0.7 10^3/uL (0.5-4.7); ABSOLUTE MONOCYTES (AUTO) 1.5 10^3/uL (0.1-1.4); ABSOLUTE NEUT (AUTO) 10.4 10^3/uL (1.7-8.2); HEMATOCRIT 25.8 % (36.0-47.0); LYMPHOCYTES % (AUTO) 5.7 % (13-45); MEAN CORPUSCULAR HEMOGLOBIN 30.5 pg (27.0-33.4); MEAN CORPUSCULAR HGB CONC 32.6 g/dL (32.0-36.0); MEAN CORPUSCULAR VOLUME 94 fl (80-97); MONOCYTES % (AUTO) 12.1 % (3-13); PLATELET COUNT 215 10^3/uL (150-450); RED BLOOD COUNT 2.75 10^6/uL (3.72-5.28); RED CELL DISTRIBUTION WIDTH 14.9 % (11.5-14.0); SEGMENTED NEUTROPHILS % (AUTO) 82.2 % (42-78); TOTAL CELLS COUNTED % (AUTO) 100 %; WHITE BLOOD COUNT 12.6 10^3/uL (4.0-10.5)
[2018-06-21 07:39] LABS: HEMOGLOBIN 8.4 g/dL (12.0-15.5)
[2018-06-21 07:41] LABS: ALANINE AMINOTRANSFERASE 19 U/L (9-52); ALBUMIN 2.3 g/dL (3.5-5.0); ALKALINE PHOSPHATASE 50 U/L (38-126); ANION GAP 9 (5-19); ASPARTATE AMINO TRANSFERASE 14 U/L (14-36); BILIRUBIN,DIRECT 0.2 mg/dL (0.0-0.4); BILIRUBIN,TOTAL 0.2 mg/dL (0.2-1.3); BLOOD UREA NITROGEN 19 mg/dL (7-20); CALCIUM 7.6 mg/dL (8.4-10.2); CARBON DIOXIDE 30 mmol/L (22-30); CHLORIDE 105 mmol/L (98-107); GLUCOSE 111 mg/dL (75-110); POTASSIUM 3.8 mmol/L (3.6-5.0); TOTAL PROTEIN 4.6 g/dL (6.3-8.2)
[2018-06-21] MEDS ORDERED: MAGNESIUM SULFATE INJ 8 MEQ/2 ML IV ONE (08:30)
[2018-06-21] MEDS: IPRATROPIUM/ALBUTEROL 0.5-2.5 MG/3 ML AMPUL NEB SCH ×2 (08:53→15:54)
[2018-06-21] MEDS: MAGNESIUM SULFATE 1 GM/D5W 100 ML IV SCH ×2 (09:05→09:52)
[2018-06-21] MEDS: SERTRALINE HCL 50 MG TABLET PO SCH (09:30)
[2018-06-21] MEDS: LACTULOSE SYRUP 20 GM/30 ML UDCUP PO SCH (09:30)
[2018-06-21] MEDS: FAMOTIDINE 20 MG TABLET PO SCH ×2 (09:30→23:04)
[2018-06-21] MEDS: FLUTICASONE NASAL SPRAY 50 MCG/SPRY 120 SPRAY/16 GM NASL SCH ×2 (09:36→23:09)
--- NOTE | 2018-06-21 09:39 | EKG REPORT ---
SEVERITY:- ABNORMAL ECG - ATRIAL-VENTRICULAR DUAL-PACED COMPLEXES RBBB AND LPFB : Confirmed by: Susan Mishra MD 21-Jun-2018 09:39:12
[2018-06-21] MEDS ORDERED: GLIMEPIRIDE 1 MG TABLET PO SCH (10:00)
[2018-06-21] MEDS: VANCOMYCIN HCL 1,000 MG in DEXTROSE 5%-WATER 250 ML IV SCH (10:27)
[2018-06-21 12:06] LABS: ARTERIAL BLOOD H2CO3 1.39 mmol/L (1.05-1.35); ARTERIAL BLOOD O2 SATURATION 98.3 % (94-98); ARTERIAL BLOOD PCO2 46.3 mmHg (35-45); ARTERIAL BLOOD PH 7.35 (7.35-7.45); ARTERIAL BLOOD PO2 125.1 mmHg (80-100); ARTERIAL BLOOD TOTAL CO2 26.4 mmol/L (21-25)
[2018-06-21 12:07] LABS: ARTERIAL BLOOD FIO2 2L
[2018-06-21] MEDS: ALBUTEROL SULFATE HFA (90 MCG/PUFF) 200 PUFF/8.5 GM MDI IH PRN (13:21)
[2018-06-21] MEDS ORDERED: NOREPINEPHRINE BITARTRATE INJ/PF 4 MG/4 ML SDV IV ONE (13:23)
[2018-06-21] MEDS: NORMAL SALINE 1000 ML 1,000 ML IV PRN (13:26)
[2018-06-21] MEDS: METHYLPREDNISOLONE INJ 125 MG/2 ML SDV IV SCH ×2 (16:04→23:05)
[2018-06-21] MEDS ORDERED: VANCOMYCIN HCL INJ 500 MG VIAL ONE (21:13)
[2018-06-21] MEDS: DEXTROSE 50%-WATER 25 GM/50 ML DISP.SYRIN IV PRN (23:02)
[2018-06-21] MEDS: LEVOFLOXACIN 750 MG/D5W RTU 750 MG/150 ML RTUPB IV SCH (23:03)
[2018-06-21] MEDS: QUETIAPINE FUMARATE 25 MG TABLET PO SCH (23:08)
[2018-06-21] MEDS: VANCOMYCIN HCL INJ 500 MG VIAL PO SCH (23:12)
[2018-06-22] MEDS: IPRATROPIUM/ALBUTEROL 0.5-2.5 MG/3 ML AMPUL NEB SCH ×2 (00:19→09:03)
[2018-06-22] MEDS: NORMAL SALINE 1000 ML 1,000 ML IV PRN (01:00)
[2018-06-22] MEDS: ALBUTEROL SULFATE HFA (90 MCG/PUFF) 200 PUFF/8.5 GM MDI IH PRN (02:39)
[2018-06-22] MEDS: GUAIFENESIN SYRP 200 MG/10 ML UDC PO PRN (02:44)
[2018-06-22] MEDS: VANCOMYCIN HCL INJ 500 MG VIAL PO SCH ×4 (04:00→22:44)
[2018-06-22] MEDS: METHYLPREDNISOLONE INJ 125 MG/2 ML SDV IV SCH ×3 (05:48→22:48)
[2018-06-22] MEDS: HEPARIN SOD (PORCINE) 5,000 UNIT/ML 1 ML SYRINGE SUBCUT SCH ×3 (05:49→22:46)
[2018-06-22] MEDS: LEVOTHYROXINE SODIUM 0.088 MG TABLET PO SCH (05:49)
[2018-06-22 05:56] LABS: HEMATOCRIT 23.8 % (36.0-47.0); HEMOGLOBIN 8.1 g/dL (12.0-15.5); MEAN CORPUSCULAR HEMOGLOBIN 31.1 pg (27.0-33.4); MEAN CORPUSCULAR HGB CONC 33.9 g/dL (32.0-36.0); MEAN CORPUSCULAR VOLUME 92 fl (80-97); PLATELET COUNT 210 10^3/uL (150-450); RED BLOOD COUNT 2.59 10^6/uL (3.72-5.28); RED CELL DISTRIBUTION WIDTH 14.9 % (11.5-14.0); WHITE BLOOD COUNT 12.7 10^3/uL (4.0-10.5)
[2018-06-22 06:06] LABS: ALANINE AMINOTRANSFERASE 18 U/L (9-52); ALBUMIN 2.5 g/dL (3.5-5.0); ALKALINE PHOSPHATASE 59 U/L (38-126); ANION GAP 10 (5-19); ASPARTATE AMINO TRANSFERASE 16 U/L (14-36); BLOOD UREA NITROGEN 20 mg/dL (7-20); CALCIUM 7.6 mg/dL (8.4-10.2); CARBON DIOXIDE 26 mmol/L (22-30); CHLORIDE 105 mmol/L (98-107); POTASSIUM 3.5 mmol/L (3.6-5.0); SODIUM 141.3 mmol/L (137-145)
[2018-06-22 06:08] LABS: BILIRUBIN,TOTAL < 0.1 mg/dL (0.2-1.3)
[2018-06-22 06:08] LABS: ARTERIAL BLOOD BASE EXCESS -0.8 mmol/L; ARTERIAL BLOOD H2CO3 1.19 mmol/L (1.05-1.35); ARTERIAL BLOOD HCO3 23.9 mmol/L (20-24); ARTERIAL BLOOD O2 SATURATION 97.7 % (94-98); ARTERIAL BLOOD PCO2 39.6 mmHg (35-45); ARTERIAL BLOOD PO2 102.1 mmHg (80-100); ARTERIAL BLOOD TOTAL CO2 25.1 mmol/L (21-25)
[2018-06-22 06:10] LABS: ARTERIAL BLOOD FIO2 2L
[2018-06-22 06:15] LABS: GLUCOSE 36 mg/dL (75-110)
[2018-06-22 06:21] LABS: ABSOLUTE MONOCYTES # (MANUAL) 0.5 10^3/uL (0.1-1.4); ABSOLUTE NEUTROPHILS# (MANUAL) 12.2 10^3/uL (1.7-8.2); BAND NEUTROPHILS % (MANUAL) 5 % (3-5); BASOPHILS % (MANUAL) 0 % (0-2); EOSINOPHILS % (MANUAL) 0 % (0-6); LYMPHOCYTES % (MANUAL) 0 % (13-45); MONOCYTES % (MANUAL) 4 % (3-13); SEGMENTED NEUTROPHILS % (MAN) 91 % (42-78); TOTAL CELLS COUNTED 100
[2018-06-22 06:24] LABS: OVALOCYTES SLIGHT; PLATELET COMMENT ADEQUATE; POIKILOCYTOSIS SLIGHT
--- NOTE | 2018-06-22 06:52 | RADIOLOGY REPORT (SQ) ---
EXAM DESCRIPTION: XR CHEST 1 VIEW COMPLETED DATE/TME: 06/22/2018 06:00 CLINICAL HISTORY: 72 years Female, COPD COMPARISON: 2 days prior. NUMBER OF VIEWS/TECHNIQUE: 1/AP FINDINGS: Moderate right hilar opacity, small right basilar opacity-effusion.Atherosclerosis. Adequate appearing right jugular central line. Normal cardiac silhouette size. No pneumothorax. Stable bony thorax. IMPRESSION: No significant change.
[2018-06-22] MEDS ORDERED: FUROSEMIDE INJ/PF 20 MG/2 ML SDV IV ONE (08:00)
[2018-06-22] MEDS ORDERED: LORAZEPAM INJ 2 MG/1 ML VIAL IV ONE (08:05)
[2018-06-22] MEDS ORDERED: MAGNESIUM SULFATE/D5W 1 GM/100 ML RTUPB IV ONE (08:06)
[2018-06-22] MEDS: LACTULOSE SYRUP 20 GM/30 ML UDCUP PO SCH (09:04)
[2018-06-22] MEDS: FAMOTIDINE 20 MG TABLET PO SCH ×2 (09:04→22:46)
[2018-06-22] MEDS: VANCOMYCIN HCL 1,000 MG in DEXTROSE 5%-WATER 250 ML IV SCH (09:04)
[2018-06-22] MEDS: FLUTICASONE NASAL SPRAY 50 MCG/SPRY 120 SPRAY/16 GM NASL SCH ×2 (09:04→22:46)
[2018-06-22] MEDS: SERTRALINE HCL 50 MG TABLET PO SCH (09:05)
[2018-06-22] MEDS ORDERED: SERTRALINE HCL 50 MG TABLET PO SCH (10:00)
[2018-06-22] MEDS ORDERED: LEVALBUTEROL HCL NEB 1.25 MG/3 ML AMPUL NEB PRN (10:13)
[2018-06-22] MEDS ORDERED: IPRATROPIUM BROMIDE 0.02% NEB 0.5 MG/2.5 ML AMPUL NEB SCH (11:00)
[2018-06-22] MEDS: LEVALBUTEROL HCL NEB 1.25 MG/3 ML AMPUL NEB SCH ×3 (11:07→20:53)
[2018-06-22] MEDS: DEXTROSE 50%-WATER 25 GM/50 ML DISP.SYRIN IV PRN ×5 (11:30→23:08)
[2018-06-22] MEDS ORDERED: PROPRANOLOL HCL 20 MG TABLET PO SCH (11:30)
[2018-06-22] MEDS: TIOTROPIUM BROMIDE DPI 5 CAP/KIT (18 MCG/CAP) IH SCH (11:30)
[2018-06-22 13:43] LABS: ANION GAP 11 (5-19); BLOOD UREA NITROGEN 22 mg/dL (7-20); CALCIUM 7.7 mg/dL (8.4-10.2); CARBON DIOXIDE 24 mmol/L (22-30); CHLORIDE 105 mmol/L (98-107); GLUCOSE 52 mg/dL (75-110); POTASSIUM 3.9 mmol/L (3.6-5.0); SODIUM 139.8 mmol/L (137-145)
[2018-06-22] MEDS: IPRATROPIUM BROMIDE 0.02% NEB 0.5 MG/2.5 ML AMPUL NEB SCH ×2 (13:50→20:53)
[2018-06-22] MEDS ORDERED: DEXTROSE 5%-WATER 1000 ML 1,000 ML IV PRN (13:52)
[2018-06-22] MEDS ORDERED: ALTEPLASE INJ 2 MG VIAL (CATH CLEARANCE) IV SCH (14:00)
--- NOTE | 2018-06-22 14:02 | PDOC PROGRESS REPORT ---
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 reveals right- sided infiltrate, CBC with leukocytosis. She has a right sided internal jugular central line placed receives 2 L of saline and empiric antibiotics then referred to the hospitalist for admission. Patient was admitted and transferred to ICU for possible sepsis and pneumonia. Initially was placed on pressors and broad-spectrum IV antibiotics. 06/22/2018. No acute events overnight. Off of pressors for the last 24 hours. Patient is alert oriented and cooperative with physical examination complaining of diarrhea overnight and not being able to sleep all night because of anxiety. She denies any fever, chills, nausea, vomiting, constipation or any urinary symptoms. She is p.o. tolerant and cooperating with physical examination. Reason For Visit: SEPSIS DIABETES, COPD EXACERBATION PNEUMONIA Physical Exam Vital Signs: Temp Pulse Resp BP Pulse Ox 98.8 F 94 25 H 105/77 100 06/22/18 12:30 06/22/18 13:50 06/22/18 13:50 06/22/18 12:30 06/22/18 13:50 Intake & Output 06/21/18 06/22/18 06/23/18 06:59 06:59 06:59 Intake Total 282 3338 1642 Output Total 860 410 Balance 282 2478 1232 Weight 70 kg 79.8 kg General appearance: PRESENT: no acute distress Head exam: PRESENT: atraumatic, normocephalic Respiratory exam: PRESENT: crackles. ABSENT: rales, rhonchi, wheezes Cardiovascular exam: PRESENT: RRR. ABSENT: diastolic murmur, rubs, systolic murmur Pulses: PRESENT: normal dorsalis pedis pul GI/Abdominal exam: PRESENT: normal bowel sounds, soft. ABSENT: distended, guarding, mass, organolmegaly, rebound, tenderness Extremities exam: PRESENT: +1 edema Neurological exam: PRESENT: alert, awake, oriented to person, oriented to place , CN II-XII grossly intact, motor sensory deficit, other - Intention tremor. Psychiatric exam: PRESENT: anxious Skin exam: PRESENT: dry, intact, warm. ABSENT: cyanosis, rash Results Laboratory Results: 06/22/18 05:42 06/22/18 13:02 06/21/18 06/21/18 06/22/18 12:55 13:40 05:42 WBC 12.7 H RBC 2.59 L Hgb 8.1 L Hct 23.8 L MCV 92 MCH 31.1 MCHC 33.9 RDW 14.9 H Plt Count 210 Seg Neutrophils % Not Reportable Lymphocytes % Not Reportable Monocytes % Not Reportable Eosinophils % Not Reportable Basophils % Not Reportable Absolute Neutrophils Not Reportable Absolute Lymphocytes Not Reportable Absolute Monocytes Not Reportable Absolute Eosinophils Not Reportable Absolute Basophils Not Reportable Carbonic Acid HCO3/H2CO3 Ratio ABG pH ABG pCO2 ABG pO2 ABG HCO3 ABG O2 Saturation ABG Base Excess FiO2 Sodium Potassium Chloride Carbon Dioxide Anion Gap BUN Creatinine Est GFR ( Amer) Est GFR (Non-Af Amer) Glucose Calcium Ionized Calcium Zurdo 1.11 L Magnesium 1.8 D Total Bilirubin AST ALT Alkaline Phosphatase Total Protein Albumin 06/22/18 06/22/18 06/22/18 05:42 06:00 13:02 WBC RBC Hgb Hct MCV MCH MCHC RDW Plt Count Seg Neutrophils % Lymphocytes % Monocytes % Eosinophils % Basophils % Absolute Neutrophils Absolute Lymphocytes Absolute Monocytes Absolute Eosinophils Absolute Basophils Carbonic Acid 1.19 HCO3/H2CO3 Ratio 20:1 ABG pH 7.40 ABG pCO2 39.6 ABG pO2 102.1 H ABG HCO3 23.9 ABG O2 Saturation 97.7 ABG Base Excess -0.8 FiO2 2L Sodium 141.3 139.8 Potassium 3.5 L 3.9 Chloride 105 105 Carbon Dioxide 26 24 Anion Gap 10 11 BUN 20 22 H Creatinine 1.17 1.16 Est GFR ( Amer) 55 L 55 L Est GFR (Non-Af Amer) 45 L 46 L Glucose 36 L* 52 L Calcium 7.6 L 7.7 L Ionized Calcium Zurdo Magnesium 1.3 L Total Bilirubin < 0.1 L AST 16 ALT 18 Alkaline Phosphatase 59 Total Protein 5.0 L Albumin 2.5 L Impressions: Abdomen/Pelvis CT 06/20/18 22:27 IMPRESSION: New focal area of parenchymal consolidation within the posterior aspect of the right lower lung, image 33 which could be secondary to an acute infectious process/area of pneumonitis. Postobstructive atelectasis/pneumonitis is a consideration. Small right pleural fluid collection, decreased when compared with the prior exam. Partially visualized air within the soft tissues of the upper extremities could be secondary to recent instrumentation. Please correlate. No acute intra-abdominal abnormality. Chest CT 06/20/18 22:27 IMPRESSION: New focal area of parenchymal consolidation within the posterior aspect of the right lower lung, image 33 which could be secondary to an acute infectious process/area of pneumonitis. Postobstructive atelectasis/pneumonitis is a consideration. Small right pleural fluid collection, decreased when compared with the prior exam. Partially visualized air within the soft tissues of the upper extremities could be secondary to recent instrumentation. Please correlate. No acute intra-abdominal abnormality. Chest X-Ray 06/22/18 06:00 IMPRESSION: No significant change. Assessment & Plan - Diagnosis (1) Septic shock Is this a current diagnosis for this admission?: Yes Plan: Likely due to combination of gram-positive cocci bacteremia and C. difficile colitis. Volume resuscitation. Broad-spectrum antibiotics. Monitor vitals. IV fluids guided by hemodynamic status. (2) Pneumonia Qualifiers: Pneumonia type: due to unspecified organism Laterality: right Lung location: unspecified part of lung Qualified Code(s): J18.9 - Pneumonia, unspecified organism Is this a current diagnosis for this admission?: Yes Plan: High risk due to being a retirement resident pulmonary malignancy. Pneumonia severity index to 219 mortality 27%. CURB-65 Score 4. Sputum culture negative. Prelim blood culture positive for gram gram-positive cocci. Altered mental status improving. ABG improving. Leukocytosis improving. Vancomycin and levofloxacin. (3) C. difficile colitis Is this a current diagnosis for this admission?: Yes Plan: C. difficile toxin by PCR positive. Continue oral vancomycin. Contact precaution. Volume resuscitation and auscultation guided by volume status. (5) COPD exacerbation Is this a current diagnosis for this admission?: Yes Plan: Likely exacerbated by underlying infectious process. IV steroids, treat underlying pneumonia, nebs, BiPAP, long-acting anticholinergics. (6) Encephalopathy Is this a current diagnosis for this admission?: Yes Plan: Metabolic encephalopathy likely due to underlying infectious process. Improved. Continue treating the underlying infectious process. (7) Diabetes mellitus type 2 in obese Is this a current diagnosis for this admission?: Yes Plan: A1c on 11/2017 5.8. Takes metformin at home. Patient has been having episodes of hypoglycemia while inpatient. Hold insulin continue Accu-Chek. (8) GERD (gastroesophageal reflux disease) Qualifiers: Esophagitis presence: esophagitis presence not specified Qualified Code(s) : K21.9 - Gastro-esophageal reflux disease without esophagitis Is this a current diagnosis for this admission?: Yes Plan: Continue PPIs. (9) Anemia Qualifiers: Anemia type: unspecified type Qualified Code(s): D64.9 - Anemia, unspecified Is this a current diagnosis for this admission?: Yes Plan: Stable. Monitor. She is if actively bleeding, under 7 or symptomatic. (10) Hypomagnesemia Is this a current diagnosis for this admission?: Yes Plan: Likely due to underlying diarrhea. Replace. Daily magnesium. (11) Depression Is this a current diagnosis for this admission?: No Plan: Restart home meds. (12) Hypothyroid Is this a current diagnosis for this admission?: Yes Plan: Start home meds.
[2018-06-22] MEDS: FUROSEMIDE 40 MG TABLET PO SCH (14:04)
[2018-06-22] MEDS ORDERED: ALTEPLASE INJ 2 MG VIAL (CATH CLEARANCE) IV PRN (14:11)
[2018-06-22] MEDS: DEXTROSE 10%-WATER 1,000 ML IV PRN (17:50)
[2018-06-22] MEDS ORDERED: QUETIAPINE FUMARATE 25 MG TABLET PO ONE (19:15)
[2018-06-22] MEDS ORDERED: ZOLPIDEM TARTRATE 5 MG TABLET PO PRN (22:00)
[2018-06-22] MEDS: LEVOFLOXACIN 750 MG/D5W RTU 750 MG/150 ML RTUPB IV SCH (22:47)
[2018-06-23] MEDS: DEXTROSE 50%-WATER 25 GM/50 ML DISP.SYRIN IV PRN ×2 (01:16→03:17)
[2018-06-23] MEDS: LEVALBUTEROL HCL NEB 1.25 MG/3 ML AMPUL NEB SCH ×4 (02:38→20:48)
[2018-06-23] MEDS: IPRATROPIUM BROMIDE 0.02% NEB 0.5 MG/2.5 ML AMPUL NEB SCH ×4 (02:38→20:48)
[2018-06-23] MEDS: VANCOMYCIN HCL INJ 500 MG VIAL PO SCH ×4 (03:28→21:57)
[2018-06-23] MEDS: QUETIAPINE FUMARATE 25 MG TABLET PO SCH ×2 (04:03→22:01)
[2018-06-23 04:36] LABS: HEMATOCRIT 27.7 % (36.0-47.0); HEMOGLOBIN 9.3 g/dL (12.0-15.5); MEAN CORPUSCULAR HGB CONC 33.6 g/dL (32.0-36.0); MEAN CORPUSCULAR VOLUME 92 fl (80-97); PLATELET COUNT 321 10^3/uL (150-450); RED BLOOD COUNT 2.99 10^6/uL (3.72-5.28); RED CELL DISTRIBUTION WIDTH 15.3 % (11.5-14.0); WHITE BLOOD COUNT 18.5 10^3/uL (4.0-10.5)
[2018-06-23 04:46] LABS: ALANINE AMINOTRANSFERASE 16 U/L (9-52); ALBUMIN 2.8 g/dL (3.5-5.0); ALKALINE PHOSPHATASE 70 U/L (38-126); ANION GAP 13 (5-19); ASPARTATE AMINO TRANSFERASE 27 U/L (14-36); BILIRUBIN,DIRECT 0.2 mg/dL (0.0-0.4); BILIRUBIN,TOTAL 0.2 mg/dL (0.2-1.3); BLOOD UREA NITROGEN 23 mg/dL (7-20); CALCIUM 7.8 mg/dL (8.4-10.2); CARBON DIOXIDE 25 mmol/L (22-30); CHLORIDE 101 mmol/L (98-107); GLUCOSE 76 mg/dL (75-110); POTASSIUM 4.5 mmol/L (3.6-5.0); SODIUM 139.1 mmol/L (137-145); TOTAL PROTEIN 5.7 g/dL (6.3-8.2)
[2018-06-23 04:55] LABS: ABSOLUTE LYMPHOCYTES# (MANUAL) 0.6 10^3/uL (0.5-4.7); ABSOLUTE MONOCYTES # (MANUAL) 0.7 10^3/uL (0.1-1.4); ABSOLUTE NEUTROPHILS# (MANUAL) 17.2 10^3/uL (1.7-8.2); ANISOCYTOSIS SLIGHT; BASOPHILS % (MANUAL) 0 % (0-2); EOSINOPHILS % (MANUAL) 0 % (0-6); LYMPHOCYTES % (MANUAL) 3 % (13-45); METAMYELOCYTES % (MANUAL) 1 % (0); MONOCYTES % (MANUAL) 4 % (3-13); PLATELET COMMENT ADEQUATE; SEGMENTED NEUTROPHILS % (MAN) 92 % (42-78); TOTAL CELLS COUNTED 100
[2018-06-23] MEDS: METHYLPREDNISOLONE INJ 125 MG/2 ML SDV IV SCH ×3 (05:26→22:02)
[2018-06-23] MEDS: LEVOTHYROXINE SODIUM 0.088 MG TABLET PO SCH (05:27)
[2018-06-23] MEDS: HEPARIN SOD (PORCINE) 5,000 UNIT/ML 1 ML SYRINGE SUBCUT SCH ×3 (05:27→21:59)
[2018-06-23] MEDS ORDERED: METOPROLOL TARTRATE PF/INJ 5 MG/5 ML SDV IV PRN (07:56)
[2018-06-23 07:58] LABS: ARTERIAL BLOOD BASE EXCESS -0.2 mmol/L; ARTERIAL BLOOD H2CO3 1.33 mmol/L (1.05-1.35); ARTERIAL BLOOD HCO3 25.3 mmol/L (20-24); ARTERIAL BLOOD PCO2 44.2 mmHg (35-45); ARTERIAL BLOOD PH 7.38 (7.35-7.45); ARTERIAL BLOOD PO2 94.6 mmHg (80-100); ARTERIAL BLOOD TOTAL CO2 26.6 mmol/L (21-25)
[2018-06-23 08:00] LABS: ARTERIAL BLOOD FIO2 30%
--- NOTE | 2018-06-23 09:00 | RADIOLOGY REPORT (SQ) ---
EXAM DESCRIPTION: CHEST SINGLE VIEW COMPLETED DATE/TIME: 06/23/2018 8:25 am REASON FOR STUDY: SOB COMPARISON: Chest films 02/23/2018, 06/22/2018 CT chest 06/20/2018, 03/11/2018 EXAM PARAMETERS: NUMBER OF VIEWS: One view. TECHNIQUE: Single frontal radiographic view of the chest acquired. RADIATION DOSE: NA LIMITATIONS: None. FINDINGS: LUNGS AND PLEURA: Old post therapeutic changes along the right hilum with bandlike scarrin g from radiation therapy, stable compared to previous exams. No acute infiltrates. No pleural effusion. No pneumothorax. MEDIASTINUM AND HILAR STRUCTURES: Post therapeutic changes right hilum HEART AND VASCULAR STRUCTURES: Heart normal in size. Normal vasculature. BONES: No acute findings. HARDWARE: Right jugular central line tip superior vena cava. OTHER: No other significant finding. IMPRESSION: No change from 06/22/2018 TECHNICAL DOCUMENTATION: JOB ID: [id number] [employer]- All Rights Reserved Reading location - IP/workstation name: [email or web address]
[2018-06-23] MEDS: LEVOFLOXACIN 750 MG/D5W RTU 750 MG/150 ML RTUPB IV SCH (09:04)
[2018-06-23] MEDS: LISINOPRIL 5 MG TABLET PO SCH (09:04)
[2018-06-23] MEDS: FUROSEMIDE 40 MG TABLET PO SCH (09:05)
[2018-06-23] MEDS: FAMOTIDINE 20 MG TABLET PO SCH ×2 (09:05→22:01)
[2018-06-23] MEDS: VANCOMYCIN HCL 1,000 MG in DEXTROSE 5%-WATER 250 ML IV SCH (09:05)
[2018-06-23] MEDS: TIOTROPIUM BROMIDE DPI 5 CAP/KIT (18 MCG/CAP) IH SCH (09:20)
[2018-06-23] MEDS: FLUTICASONE NASAL SPRAY 50 MCG/SPRY 120 SPRAY/16 GM NASL SCH ×2 (09:21→21:58)
[2018-06-23] MEDS: LACTULOSE SYRUP 20 GM/30 ML UDCUP PO SCH (09:21)
[2018-06-23] MEDS: CEFEPIME 2 GM/D5W RTU 2 GM/50 ML RTUPB IV SCH ×2 (09:27→21:58)
[2018-06-23] MEDS ORDERED: (PENDING PHARMACY ID) (Lisinopril [Prinivil 2.5 Mg Tablet] 2.5 MG) PO SCH (10:00)
[2018-06-23] MEDS ORDERED: METOPROLOL TARTRATE 25 MG TABLET PO SCH (10:00)
[2018-06-23] MEDS ORDERED: KETOROLAC TROMETHAMINE INJ/PF 30 MG/1 ML SDV IV ONE (10:40)
[2018-06-23] MEDS ORDERED: KETOROLAC TROMETHAMINE INJ/PF 30 MG/1 ML SDV ONE (10:43)
[2018-06-23] MEDS: METOPROLOL TARTRATE PF/INJ 5 MG/5 ML SDV IV PRN ×2 (10:49→18:15)
[2018-06-23] MEDS ORDERED: PIPERACILLIN SODIUM/TAZOBACTAM 4.5 GM in NORMAL SALINE 100 ML IV SCH (12:00)
[2018-06-23] MEDS ORDERED: HALOPERIDOL LACTATE INJ 5 MG/1 ML VIAL ONE ×2 (12:22→18:09)
--- NOTE | 2018-06-23 17:46 | PDOC PROGRESS REPORT ---
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 reveals right- sided infiltrate, CBC with leukocytosis. She has a right sided internal jugular central line placed receives 2 L of saline and empiric antibiotics then referred to the hospitalist for admission. Patient was admitted and transferred to ICU for possible sepsis and pneumonia. Initially was placed on pressors and broad-spectrum IV antibiotics. 06/22/2018. No acute events overnight. Off of pressors for the last 24 hours. Patient is alert oriented and cooperative with physical examination complaining of diarrhea overnight and not being able to sleep all night because of anxiety. She denies any fever, chills, nausea, vomiting, constipation or any urinary symptoms. She is p.o. tolerant and cooperating with physical examination. 06/23/2018. Patient has been confused and agitated and restless since yesterday. Repeat chest x-ray and ABG did not show any acute changes since admission. Patient is alert however confused and keeps talking to herself. She still p.o. tolerant but would not eat much of her food. Patient is full code and I contacted her daughter who is her power of associate attorney and left a message however I did not receive a call back. Reason For Visit: SEPSIS DIABETES, COPD EXACERBATION PNEUMONIA Physical Exam Vital Signs: Temp Pulse Resp BP Pulse Ox 99.5 F 107 H 24 H 86/62 L 95 06/23/18 15:55 06/23/18 14:29 06/23/18 15:55 06/23/18 15:35 06/23/18 15:55 Intake & Output 06/22/18 06/23/18 06/24/18 06:59 06:59 06:59 Intake Total 3338 2039 1163 Output Total 860 1330 95 Balance 2478 709 1068 Weight 79.8 kg 77.5 kg General appearance: PRESENT: mild distress Head exam: PRESENT: atraumatic, normocephalic Respiratory exam: PRESENT: clear to auscultation jeff. ABSENT: rales, rhonchi, wheezes Cardiovascular exam: PRESENT: RRR. ABSENT: diastolic murmur, rubs, systolic murmur GI/Abdominal exam: PRESENT: normal bowel sounds, soft. ABSENT: distended, guarding, mass, organolmegaly, rebound, tenderness Neurological exam: PRESENT: alert, altered, awake, CN II-XII grossly intact, other - Moves all 4 extremities. Skin exam: PRESENT: dry, intact, warm. ABSENT: cyanosis, rash Results Laboratory Results: 06/23/18 04:15 06/23/18 08:22 06/23/18 06/23/18 06/23/18 04:15 04:15 07:30 WBC 18.5 H RBC 2.99 L Hgb 9.3 L Hct 27.7 L MCV 92 MCH 31.0 MCHC 33.6 RDW 15.3 H Plt Count 321 Seg Neutrophils % Not Reportable Lymphocytes % Not Reportable Monocytes % Not Reportable Eosinophils % Not Reportable Basophils % Not Reportable Absolute Neutrophils Not Reportable Absolute Lymphocytes Not Reportable Absolute Monocytes Not Reportable Absolute Eosinophils Not Reportable Absolute Basophils Not Reportable Carbonic Acid 1.33 HCO3/H2CO3 Ratio 19:1 ABG pH 7.38 ABG pCO2 44.2 ABG pO2 94.6 ABG HCO3 25.3 H ABG O2 Saturation 97.0 ABG Base Excess -0.2 FiO2 30% Sodium 139.1 Potassium 4.5 Chloride 101 Carbon Dioxide 25 Anion Gap 13 BUN 23 H Creatinine 1.41 H Est GFR ( Amer) 44 L Est GFR (Non-Af Amer) 36 L Glucose 76 Lactic Acid Calcium 7.8 L Magnesium 1.5 L Total Bilirubin 0.2 AST 27 ALT 16 Alkaline Phosphatase 70 Ammonia Total Protein 5.7 L Albumin 2.8 L 06/23/18 06/23/18 06/23/18 08:22 08:22 08:22 WBC RBC Hgb Hct MCV MCH MCHC RDW Plt Count Seg Neutrophils % Lymphocytes % Monocytes % Eosinophils % Basophils % Absolute Neutrophils Absolute Lymphocytes Absolute Monocytes Absolute Eosinophils Absolute Basophils Carbonic Acid HCO3/H2CO3 Ratio ABG pH ABG pCO2 ABG pO2 ABG HCO3 ABG O2 Saturation ABG Base Excess FiO2 Sodium Potassium Chloride Carbon Dioxide Anion Gap BUN Creatinine Est GFR ( Amer) Est GFR (Non-Af Amer) Glucose 47 L Lactic Acid 1.5 Calcium Magnesium Total Bilirubin AST ALT Alkaline Phosphatase Ammonia < 8.7 L Total Protein Albumin Impressions: Abdomen/Pelvis CT 06/20/18 22:27 IMPRESSION: New focal area of parenchymal consolidation within the posterior aspect of the right lower lung, image 33 which could be secondary to an acute infectious process/area of pneumonitis. Postobstructive atelectasis/pneumonitis is a consideration. Small right pleural fluid collection, decreased when compared with the prior exam. Partially visualized air within the soft tissues of the upper extremities could be secondary to recent instrumentation. Please correlate. No acute intra-abdominal abnormality. Chest CT 06/20/18 22:27 IMPRESSION: New focal area of parenchymal consolidation within the posterior aspect of the right lower lung, image 33 which could be secondary to an acute infectious process/area of pneumonitis. Postobstructive atelectasis/pneumonitis is a consideration. Small right pleural fluid collection, decreased when compared with the prior exam. Partially visualized air within the soft tissues of the upper extremities could be secondary to recent instrumentation. Please correlate. No acute intra-abdominal abnormality. Chest X-Ray 06/23/18 00:00 IMPRESSION: No change from 06/22/2018 Assessment & Plan - Diagnosis (1) Septic shock Is this a current diagnosis for this admission?: Yes Plan: Due to underlying bacteremia and pneumonia. Blood culture positive for strep pneumo pansensitive from 06/20/2018. Sputum culture from 06/21/2018 also positive for gram-positive cocci and strep pneumo. Day 3 of IV Vanco, levo. Day 1 of IV cefepime. Total 3 days of IV antibiotics. Patient has been off of pressors for the last 2 days however baseline hypotensive. Patient could not be aggressively volume resuscitated due to underlying CHF and volume overload. We will continue IV fluid guided by volume status. Urine output has also decreasing. (2) Pneumonia Qualifiers: Pneumonia type: due to unspecified organism Laterality: right Lung location: unspecified part of lung Qualified Code(s): J18.9 - Pneumonia, unspecified organism Is this a current diagnosis for this admission?: Yes Plan: High risk due to being a jail resident pulmonary malignancy. Pneumonia severity index to 219 mortality 27%. CURB-65 Score 4. Blood culture positive for strep pneumo pansensitive from 06/20/2018. Sputum culture from 06/21/2018 also positive for gram-positive cocci and strep pneumo. Chest x-ray on 1123 2017 negative any changes. ABG on 06/23/2018 within normal limits Day 3 of IV Vanco, levo. Day 1 of IV cefepime. Total 3 days of IV antibiotics. Patient has been off of pressors for the last 2 days however baseline hypotensive. Patient could not be aggressively volume resuscitated due to underlying CHF and volume overload. We will continue IV fluid guided by volume status. Urine output has also decreasing. (3) C. difficile colitis Is this a current diagnosis for this admission?: Yes Plan: C. difficile toxin by PCR positive. Continue oral vancomycin. Contact precaution. Volume resuscitation and auscultation guided by volume status. (4) Acute on chronic diastolic (congestive) heart failure Is this a current diagnosis for this admission?: No Plan: Monitor her volume status. Hold diuretics due to hypotension. Restart once clinically appropriate. (5) COPD exacerbation Is this a current diagnosis for this admission?: Yes Plan: Likely exacerbated by underlying infectious process. IV steroids, treat underlying pneumonia, nebs, BiPAP, long-acting anticholinergics. (6) Encephalopathy Is this a current diagnosis for this admission?: Yes Plan: Metabolic encephalopathy likely due to underlying infectious process. Worsening. Continue treating the underlying infectious process. (7) Diabetes mellitus type 2 in obese Is this a current diagnosis for this admission?: Yes Plan: A1c on 11/2017 5.8. Takes metformin at home. Patient has been having episodes of hypoglycemia while inpatient. Hold insulin continue Accu-Chek. (8) GERD (gastroesophageal reflux disease) Qualifiers: Esophagitis presence: esophagitis presence not specified Qualified Code(s) : K21.9 - Gastro-esophageal reflux disease without esophagitis Is this a current diagnosis for this admission?: Yes Plan: Continue PPIs. (9) Anemia Qualifiers: Anemia type: unspecified type Qualified Code(s): D64.9 - Anemia, unspecified Is this a current diagnosis for this admission?: Yes Plan: Stable. Monitor. She is if actively bleeding, under 7 or symptomatic. (10) Hypomagnesemia Is this a current diagnosis for this admission?: Yes Plan: Likely due to underlying diarrhea. Replace. Daily magnesium. (11) Hypothyroid Is this a current diagnosis for this admission?: Yes Plan: Start home meds. (12) Hypoglycemia Is this a current diagnosis for this admission?: Yes Plan: Likely due to underlying severe infection. Continue D5 and water. Continue Accu-Chek. Hold antidiabetic medications for now.
[2018-06-23] MEDS ORDERED: HALOPERIDOL LACTATE INJ 5 MG/1 ML VIAL IV ONE (17:59)
[2018-06-23] MEDS: DEXTROSE 10%-WATER 1,000 ML IV PRN (22:13)
[2018-06-23] MEDS ORDERED: MAGNESIUM SULFATE/D5W 1 GM/100 ML RTUPB IV ONE (23:45)
[2018-06-24] MEDS: LEVALBUTEROL HCL NEB 1.25 MG/3 ML AMPUL NEB SCH ×4 (02:18→20:58)
[2018-06-24] MEDS: IPRATROPIUM BROMIDE 0.02% NEB 0.5 MG/2.5 ML AMPUL NEB SCH ×4 (02:18→20:58)
[2018-06-24] MEDS: VANCOMYCIN HCL INJ 500 MG VIAL PO SCH ×4 (03:24→21:29)
--- NOTE | 2018-06-24 04:12 | RADIOLOGY REPORT (SQ) ---
CLINICAL HISTORY: rule out cva/ams COMPARISON: None. TECHNIQUE: CT HEAD WITHOUT IV CONTRAST on 06/23/2018 12:00 AM ENVIRONMENTAL SERVICES SPECIALIST This exam was performed according to our departmental dose-optimization program, which includes automated exposure control, adjustment of the mA and/or kV according to patient size and/or use of iterative reconstruction technique. FINDINGS: There is no acute hemorrhage, mass effect or midline shift. Barraza-white differentiation is preserved. There is no hydrocephalus. There is moderate diffuse cerebral atrophy. There are moderate patchy hypodensities within the periventricular and subcortical white matter, consistent with microangiopathic ischemic changes. The calvarium is intact. Orbits and globes are unremarkable. The paranasal sinuses are clear. Mastoid air cells are clear. IMPRESSION: No acute intracranial findings.
[2018-06-24] MEDS: METHYLPREDNISOLONE INJ 125 MG/2 ML SDV IV SCH ×3 (05:48→22:01)
[2018-06-24] MEDS: HEPARIN SOD (PORCINE) 5,000 UNIT/ML 1 ML SYRINGE SUBCUT SCH ×3 (05:49→22:06)
[2018-06-24] MEDS: LEVOTHYROXINE SODIUM 0.088 MG TABLET PO SCH (05:50)
[2018-06-24 08:15] LABS: HEMATOCRIT 25.4 % (36.0-47.0); HEMOGLOBIN 8.3 g/dL (12.0-15.5); MEAN CORPUSCULAR HEMOGLOBIN 30.3 pg (27.0-33.4); MEAN CORPUSCULAR HGB CONC 32.8 g/dL (32.0-36.0); MEAN CORPUSCULAR VOLUME 92 fl (80-97); PLATELET COUNT 256 10^3/uL (150-450); RED BLOOD COUNT 2.76 10^6/uL (3.72-5.28); RED CELL DISTRIBUTION WIDTH 14.8 % (11.5-14.0); WHITE BLOOD COUNT 11.4 10^3/uL (4.0-10.5)
[2018-06-24 08:19] LABS: ANION GAP 13 (5-19); BLOOD UREA NITROGEN 31 mg/dL (7-20); CALCIUM 7.9 mg/dL (8.4-10.2); CARBON DIOXIDE 25 mmol/L (22-30); CHLORIDE 99 mmol/L (98-107); GLUCOSE 110 mg/dL (75-110); POTASSIUM 4.4 mmol/L (3.6-5.0); SODIUM 137.1 mmol/L (137-145)
[2018-06-24 08:48] LABS: ABSOLUTE LYMPHOCYTES# (MANUAL) 0.5 10^3/uL (0.5-4.7); ABSOLUTE MONOCYTES # (MANUAL) 0.6 10^3/uL (0.1-1.4); ABSOLUTE NEUTROPHILS# (MANUAL) 10.4 10^3/uL (1.7-8.2); BASOPHILS % (MANUAL) 0 % (0-2); EOSINOPHILS % (MANUAL) 0 % (0-6); LYMPHOCYTES % (MANUAL) 4 % (13-45); MONOCYTES % (MANUAL) 5 % (3-13); SEGMENTED NEUTROPHILS % (MAN) 91 % (42-78); TOTAL CELLS COUNTED 100
[2018-06-24 08:49] LABS: OVALOCYTES 1+; PLATELET COMMENT ADEQUATE; POIKILOCYTOSIS 1+; TEAR DROP CELLS SLIGHT
[2018-06-24] MEDS: LACTULOSE SYRUP 20 GM/30 ML UDCUP PO SCH (10:06)
[2018-06-24] MEDS: FLUTICASONE NASAL SPRAY 50 MCG/SPRY 120 SPRAY/16 GM NASL SCH ×2 (10:06→22:03)
[2018-06-24] MEDS: TIOTROPIUM BROMIDE DPI 5 CAP/KIT (18 MCG/CAP) IH SCH (10:07)
[2018-06-24] MEDS: LISINOPRIL 5 MG TABLET PO SCH (10:07)
[2018-06-24] MEDS: FAMOTIDINE 20 MG TABLET PO SCH ×2 (10:07→23:38)
[2018-06-24] MEDS: LEVOFLOXACIN 750 MG/D5W RTU 750 MG/150 ML RTUPB IV SCH (10:44)
[2018-06-24] MEDS: CEFEPIME 2 GM/D5W RTU 2 GM/50 ML RTUPB IV SCH (10:44)
[2018-06-24] MEDS: VANCOMYCIN HCL 1,000 MG in DEXTROSE 5%-WATER 250 ML IV SCH (10:44)
[2018-06-24 11:11] LABS: VANCOMYCIN,TROUGH 20.3 ug/mL (5.0-20.0)
[2018-06-24] MEDS ORDERED: HALOPERIDOL LACTATE INJ 5 MG/1 ML VIAL IV ONE (13:42)
[2018-06-24] MEDS ORDERED: HALOPERIDOL LACTATE INJ 5 MG/1 ML VIAL IV PRN (13:44)
[2018-06-24] MEDS ORDERED: HALOPERIDOL LACTATE INJ 5 MG/1 ML VIAL ONE (13:57)
[2018-06-24] MEDS ORDERED: SULFAMETHOX/TRIMETH 800-160 MG/10 ML VIAL IV SCH (14:00)
--- NOTE | 2018-06-24 14:06 | PDOC PROGRESS REPORT ---
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 reveals right- sided infiltrate, CBC with leukocytosis. She has a right sided internal jugular central line placed receives 2 L of saline and empiric antibiotics then referred to the hospitalist for admission. Patient was admitted and transferred to ICU for possible sepsis and pneumonia. Initially was placed on pressors and broad-spectrum IV antibiotics. 06/22/2018. No acute events overnight. Off of pressors for the last 24 hours. Patient is alert oriented and cooperative with physical examination complaining of diarrhea overnight and not being able to sleep all night because of anxiety. She denies any fever, chills, nausea, vomiting, constipation or any urinary symptoms. She is p.o. tolerant and cooperating with physical examination. 06/23/2018. Patient has been confused and agitated and restless since yesterday. Repeat chest x-ray and ABG did not show any acute changes since admission. Patient is alert however confused and keeps talking to herself. She still p.o. tolerant but would not eat much of her food. Patient is full code and I contacted her daughter who is her power of payroll manager and left a message however I did not receive a call back. 06/24/2018. No acute events overnight. Patient's mental status remains unchanged. Blood pressure has been maintained low normal, SPO2 is also within normal limits on supplemental oxygen. Urine output improving. Had a conversation with her daughter who has power of payroll manager who is stated that her plan is to transfer patient to [place] once clinically stable. Meanwhile she will discussed CODE STATUS with her family. Reason For Visit: SEPSIS DIABETES, COPD EXACERBATION PNEUMONIA Physical Exam Vital Signs: Temp Pulse Resp BP Pulse Ox 97.2 F 109 H 22 H 98/86 H 91 L 06/24/18 12:00 06/24/18 12:00 06/24/18 12:00 06/24/18 12:00 06/24/18 12:00 Intake & Output 06/23/18 06/24/18 06/25/18 06:59 06:59 06:59 Intake Total 2039 1750 600 Output Total 1330 325 130 Balance 709 1425 470 Weight 77.5 kg 78.5 kg General appearance: PRESENT: cooperative, mild distress Head exam: PRESENT: atraumatic, normocephalic Neck exam: ABSENT: carotid bruit, JVD, lymphadenopathy, thyromegaly Respiratory exam: PRESENT: clear to auscultation jeff. ABSENT: rales, rhonchi, wheezes Cardiovascular exam: PRESENT: RRR. ABSENT: diastolic murmur, rubs, systolic murmur GI/Abdominal exam: PRESENT: normal bowel sounds, soft. ABSENT: distended, guarding, mass, organolmegaly, rebound, tenderness Neurological exam: PRESENT: alert, awake, oriented to person, CN II-XII grossly intact Psychiatric exam: PRESENT: agitated Results Laboratory Results: 06/24/18 07:35 06/24/18 10:35 06/24/18 06/24/18 06/24/18 07:35 07:35 07:55 WBC 11.4 H RBC 2.76 L Hgb 8.3 L Hct 25.4 L MCV 92 MCH 30.3 MCHC 32.8 RDW 14.8 H Plt Count 256 Seg Neutrophils % Not Reportable Lymphocytes % Not Reportable Monocytes % Not Reportable Eosinophils % Not Reportable Basophils % Not Reportable Absolute Neutrophils Not Reportable Absolute Lymphocytes Not Reportable Absolute Monocytes Not Reportable Absolute Eosinophils Not Reportable Absolute Basophils Not Reportable Carbonic Acid Cancelled HCO3/H2CO3 Ratio Cancelled ABG pH Cancelled ABG pCO2 Cancelled ABG pO2 Cancelled ABG HCO3 Cancelled ABG O2 Saturation Cancelled ABG Base Excess Cancelled FiO2 Cancelled Sodium 137.1 Potassium 4.4 Chloride 99 Carbon Dioxide 25 Anion Gap 13 BUN 31 H Creatinine 1.76 H Est GFR ( Amer) 34 L Est GFR (Non-Af Amer) 28 L Glucose 110 Calcium 7.9 L Phosphorus 5.0 H Magnesium 1.9 06/24/18 10:35 WBC RBC Hgb Hct MCV MCH MCHC RDW Plt Count Seg Neutrophils % Lymphocytes % Monocytes % Eosinophils % Basophils % Absolute Neutrophils Absolute Lymphocytes Absolute Monocytes Absolute Eosinophils Absolute Basophils Carbonic Acid HCO3/H2CO3 Ratio ABG pH ABG pCO2 ABG pO2 ABG HCO3 ABG O2 Saturation ABG Base Excess FiO2 Sodium Potassium Chloride Carbon Dioxide Anion Gap BUN Creatinine 1.79 H Est GFR ( Amer) 33 L Est GFR (Non-Af Amer) 28 L Glucose Calcium Phosphorus Magnesium Impressions: Abdomen/Pelvis CT 06/20/18 22:27 IMPRESSION: New focal area of parenchymal consolidation within the posterior aspect of the right lower lung, image 33 which could be secondary to an acute infectious process/area of pneumonitis. Postobstructive atelectasis/pneumonitis is a consideration. Small right pleural fluid collection, decreased when compared with the prior exam. Partially visualized air within the soft tissues of the upper extremities could be secondary to recent instrumentation. Please correlate. No acute intra-abdominal abnormality. Chest CT 06/20/18 22:27 IMPRESSION: New focal area of parenchymal consolidation within the posterior aspect of the right lower lung, image 33 which could be secondary to an acute infectious process/area of pneumonitis. Postobstructive atelectasis/pneumonitis is a consideration. Small right pleural fluid collection, decreased when compared with the prior exam. Partially visualized air within the soft tissues of the upper extremities could be secondary to recent instrumentation. Please correlate. No acute intra-abdominal abnormality. Chest X-Ray 06/23/18 00:00 IMPRESSION: No change from 06/22/[address] 06/23/18 00:00 IMPRESSION: No acute intracranial findings. Assessment & Plan - Diagnosis (1) Pneumococcal bacteremia Is this a current diagnosis for this admission?: Yes Plan: Blood culture from 06/20/2018 positive for strep pneumonia pansensitive. Due to unchanged mental status and raises a question of meningitis Patient has been on vancomycin, levofloxacin since admission. Cefepime was added on 06/22/2018. Zosyn could not be started due to beta-lactam allergy. Switch cefepime to ceftriaxone, start Bactrim for empiric coverage of listeria due to the fact that patient is allergic to amoxicillin. Continue vancomycin. ID consult unavailable due to weekend. Will consult tomorrow. Pending brain MRI and lumbar puncture. (2) Septic shock Is this a current diagnosis for this admission?: Yes Plan: Due to underlying bacteremia and pneumonia. Blood culture from 06/20/2018 is positive forr strep pneumonia. Sputum culture from 06/21/2018 positive for an MRSA. Day 4 of IV Vanco and levofloxacin. Day 2/2 of IV cefepime. Day 4 of IV antibiotics. Day 1 of ceftriaxone and IV Bactrim. Patient has been off of pressors for the last 2 days however baseline hypotensive. Patient could not be aggressively volume resuscitated due to underlying CHF and volume overload. Continue IV fluids. Urine output increasing. (3) Pneumonia Qualifiers: Pneumonia type: due to unspecified organism Laterality: right Lung location: unspecified part of lung Qualified Code(s): J18.9 - Pneumonia, unspecified organism Is this a current diagnosis for this admission?: Yes Plan: High risk due to being a [place] [facility] resident pulmonary malignancy. Pneumonia severity index to 219 mortality 27%. CURB-65 Score 4. Blood culture from 06/20/2018 is positive forr strep pneumonia. Sputum culture from 06/21/2018 positive for an MRSA. Day 4 of IV Vanco and levofloxacin. Day 2/2 of IV cefepime. Day 4 of IV antibiotics. Day 1 of ceftriaxone and IV Bactrim. Patient has been off of pressors for the last 2 days however baseline hypotensive. Patient could not be aggressively volume resuscitated due to underlying CHF and volume overload. Continue IV fluids. Urine output increasing. (4) C. difficile colitis Is this a current diagnosis for this admission?: Yes Plan: Patient has not had any diarrhea since admission. C. difficile toxin by PCR positive. Continue oral vancomycin. Contact precaution. Volume resuscitation and auscultation guided by volume status. (5) Acute on chronic diastolic (congestive) heart failure Is this a current diagnosis for this admission?: No Plan: Monitor her volume status. Hold diuretics due to hypotension. Restart once clinically appropriate. (6) COPD exacerbation Is this a current diagnosis for this admission?: Yes Plan: Likely exacerbated by underlying infectious process. IV steroids, treat underlying pneumonia, nebs, BiPAP, long-acting anticholinergics. (7) Encephalopathy Is this a current diagnosis for this admission?: Yes Plan: Metabolic versus infectious. Start empiric treatment for bacterial meningitis. Pending brain MRI and lumbar puncture. (8) Diabetes mellitus type 2 in obese Is this a current diagnosis for this admission?: Yes Plan: A1c on 11/2017 5.8. Takes metformin at home. Patient has been having episodes of hypoglycemia while inpatient. Hold insulin continue Accu-Chek. As per my conversation with her daughter patient does not have diabetes and she is not sure why she was started on metformin at the [place] [facility]. DC insulin. (9) GERD (gastroesophageal reflux disease) Qualifiers: Esophagitis presence: esophagitis presence not specified Qualified Code(s) : K21.9 - Gastro-esophageal reflux disease without esophagitis Is this a current diagnosis for this admission?: Yes Plan: Continue PPIs. (10) Anemia Qualifiers: Anemia type: unspecified type Qualified Code(s): D64.9 - Anemia, unspecified Is this a current diagnosis for this admission?: Yes Plan: Stable. Monitor. She is if actively bleeding, under 7 or symptomatic. (11) Hypomagnesemia Is this a current diagnosis for this admission?: Yes Plan: Resolved. (12) Hypothyroid Is this a current diagnosis for this admission?: Yes Plan: Start home meds. (13) Hypoglycemia Is this a current diagnosis for this admission?: Yes Plan: Improving. Likely due to underlying severe infection. Continue D10W. Continue Accu-Chek. Hold antidiabetic medications for now.
[2018-06-24] MEDS: DEXTROSE 10%-WATER 1,000 ML IV PRN (14:10)
--- NOTE | 2018-06-24 17:58 | RADIOLOGY REPORT (SQ) ---
EXAM DESCRIPTION: MRI HEAD WITHOUT COMPLETED DATE/TIME: 06/24/2018 5:39 pm REASON FOR STUDY: unresolved AMS COMPARISON: CT dated 06/24/2018. TECHNIQUE: Multiplanar imaging includes non-contrasted T1, T2, FLAIR, and diffusion with ADC map seq uences. Images stored on PACS. LIMITATIONS: Motion artifact. FINDINGS: ANATOMY: No anomalies. Normal vascular flow voids. Pituitary fossa normal. CSF SPACES: Atrophy induced prominence of ventricles and CSF spaces. CEREBRUM: High signal intensity lesions scattered throughout the white matter on FLAIR imaging with d istribution suggesting micro-vascular ischemic changes. No evidence of hemorrhage, mass, or extraaxi al fluid collection. POSTERIOR FOSSA: No signal alteration. No hemorrhage. No edema, masses or mass effect. Internal giacomo tory canals, cerebello-pontine angles, mastoids normal. DIFFUSION IMAGING: Negative for acute or sub-acute infarction. ORBITS: No masses. Globes normal. PARANASAL SINUSES: No fluid levels. Mucosa normal. OTHER: No other significant finding. IMPRESSION: ATROPHY AND CHRONIC MICRO-VASCULAR ISCHEMIC CHANGES. OTHERWISE NORMAL MRI OF THE BRAIN W ITHOUT INTRAVENOUS GADOLINIUM CONTRAST. EVIDENCE OF ACUTE STROKE: NO. TECHNICAL DOCUMENTATION: JOB ID: [id number] [employer]- All Rights Reserved Reading location - IP/workstation name: [email or web address]
[2018-06-24] MEDS: DEXTROSE 5% IV SCH (18:41)
[2018-06-24] MEDS: WATER IV SCH (18:41)
[2018-06-24] MEDS: SULFAMETHOXAZOLE IV SCH (18:41)
[2018-06-24] MEDS: TRIMETHOPRIM IV SCH (18:41)
[2018-06-24] MEDS: QUETIAPINE FUMARATE 25 MG TABLET PO SCH (23:38)
[2018-06-25] MEDS: TRIMETHOPRIM IV SCH ×2 (02:34→10:28)
[2018-06-25] MEDS: SULFAMETHOXAZOLE IV SCH ×2 (02:34→10:28)
[2018-06-25] MEDS: WATER IV SCH ×2 (02:34→10:28)
[2018-06-25] MEDS: DEXTROSE 5% IV SCH ×2 (02:34→10:28)
[2018-06-25] MEDS: LEVALBUTEROL HCL NEB 1.25 MG/3 ML AMPUL NEB SCH ×4 (02:57→20:19)
[2018-06-25] MEDS: IPRATROPIUM BROMIDE 0.02% NEB 0.5 MG/2.5 ML AMPUL NEB SCH ×4 (02:57→20:19)
[2018-06-25] MEDS: VANCOMYCIN HCL INJ 500 MG VIAL PO SCH ×3 (03:50→14:59)
[2018-06-25] MEDS: DEXTROSE 10%-WATER 1,000 ML IV PRN (03:51)
[2018-06-25] MEDS: METHYLPREDNISOLONE INJ 125 MG/2 ML SDV IV SCH ×2 (07:04→13:19)
[2018-06-25] MEDS: LEVOTHYROXINE SODIUM 0.088 MG TABLET PO SCH (07:05)
[2018-06-25] MEDS: HEPARIN SOD (PORCINE) 5,000 UNIT/ML 1 ML SYRINGE SUBCUT SCH ×3 (07:05→21:17)
[2018-06-25 08:38] LABS: HEMATOCRIT 21.9 % (36.0-47.0); MEAN CORPUSCULAR HEMOGLOBIN 31.3 pg (27.0-33.4); MEAN CORPUSCULAR HGB CONC 34.4 g/dL (32.0-36.0); MEAN CORPUSCULAR VOLUME 91 fl (80-97); PLATELET COUNT 166 10^3/uL (150-450); RED CELL DISTRIBUTION WIDTH 14.4 % (11.5-14.0)
[2018-06-25 08:53] LABS: HEMOGLOBIN 7.5 g/dL (12.0-15.5)
[2018-06-25 08:57] LABS: ALANINE AMINOTRANSFERASE 17 U/L (9-52); ALBUMIN 2.6 g/dL (3.5-5.0); ALKALINE PHOSPHATASE 46 U/L (38-126); ANION GAP 13 (5-19); ASPARTATE AMINO TRANSFERASE 20 U/L (14-36); BILIRUBIN,DIRECT 0.1 mg/dL (0.0-0.4); BILIRUBIN,TOTAL 0.1 mg/dL (0.2-1.3); BLOOD UREA NITROGEN 28 mg/dL (7-20); CALCIUM 7.4 mg/dL (8.4-10.2); CARBON DIOXIDE 24 mmol/L (22-30); CHLORIDE 91 mmol/L (98-107); GLUCOSE 145 mg/dL (75-110); POTASSIUM 3.9 mmol/L (3.6-5.0); SODIUM 127.6 mmol/L (137-145); TOTAL PROTEIN 5.1 g/dL (6.3-8.2)
[2018-06-25 09:08] LABS: ABSOLUTE LYMPHOCYTES# (MANUAL) 0.1 10^3/uL (0.5-4.7); ABSOLUTE MONOCYTES # (MANUAL) 0.1 10^3/uL (0.1-1.4); ABSOLUTE NEUTROPHILS# (MANUAL) 5.8 10^3/uL (1.7-8.2); BAND NEUTROPHILS % (MANUAL) 1 % (3-5); BASOPHILS % (MANUAL) 0 % (0-2); EOSINOPHILS % (MANUAL) 0 % (0-6); LYMPHOCYTES % (MANUAL) 2 % (13-45); MONOCYTES % (MANUAL) 1 % (3-13); SEGMENTED NEUTROPHILS % (MAN) 96 % (42-78); TOTAL CELLS COUNTED 100
[2018-06-25 09:12] LABS: HYPOCHROMASIA 1+; OVALOCYTES 1+; PLATELET COMMENT ADEQUATE; POIKILOCYTOSIS 1+; POLYCHROMASIA SLIGHT; TEAR DROP CELLS SLIGHT; TOXIC GRANULATION SLIGHT; TOXIC VACUOLATION PRESENT
[2018-06-25] MEDS: FUROSEMIDE 40 MG TABLET PO SCH (09:50)
[2018-06-25] MEDS: LACTULOSE SYRUP 20 GM/30 ML UDCUP PO SCH (09:50)
[2018-06-25] MEDS: FLUTICASONE NASAL SPRAY 50 MCG/SPRY 120 SPRAY/16 GM NASL SCH (09:50)
[2018-06-25] MEDS: FAMOTIDINE 20 MG TABLET PO SCH ×2 (09:50→21:25)
[2018-06-25] MEDS: TIOTROPIUM BROMIDE DPI 5 CAP/KIT (18 MCG/CAP) IH SCH (09:51)
[2018-06-25] MEDS ORDERED: CEFTRIAXONE SODIUM 1,000 MG in DEXTROSE 5%-WATER 50 ML IV SCH (10:00)
[2018-06-25] MEDS ORDERED: VANCOMYCIN HCL 750 MG in DEXTROSE 5%-WATER 250 ML IV SCH (10:00)
[2018-06-25] MEDS ORDERED: CEFTRIAXONE 1 GM/D5W RTU 1 GM/50 ML RTUPB IV SCH (10:00)
[2018-06-25] MEDS: LEVOFLOXACIN 750 MG/D5W RTU 750 MG/150 ML RTUPB IV SCH (10:26)
[2018-06-25] MEDS ORDERED: NORMAL SALINE 1000 ML 1,000 ML IV PRN (10:46)
[2018-06-25] MEDS ORDERED: SUCCINYLCHOLINE CHLORIDE INJ 200 MG/10 ML VIAL ONE (10:59)
[2018-06-25 15:00] LABS: ARTERIAL BLOOD BASE EXCESS -7.5 mmol/L; ARTERIAL BLOOD HCO3 22.8 mmol/L (20-24); ARTERIAL BLOOD O2 SATURATION 93.7 % (94-98); ARTERIAL BLOOD PO2 93.9 mmHg (80-100); ARTERIAL BLOOD TOTAL CO2 25.2 mmol/L (21-25)
[2018-06-25 15:04] LABS: ARTERIAL BLOOD FIO2 2L
[2018-06-25 15:06] LABS: ARTERIAL BLOOD PCO2 76.4 mmHg (35-45); ARTERIAL BLOOD PH 7.09 (7.35-7.45)
[2018-06-25] MEDS ORDERED: PROPOFOL 1,000 MG/100 ML INFUS..BTL IV ONE (15:26)
--- NOTE | 2018-06-25 15:34 | RADIOLOGY REPORT (SQ) ---
EXAM DESCRIPTION: CHEST SINGLE VIEW COMPLETED DATE/TIME: 06/25/2018 3:24 pm REASON FOR STUDY: RESPIRATORY DISTRESS COMPARISON: 06/23/2018. EXAM PARAMETERS: NUMBER OF VIEWS: One view. TECHNIQUE: Single frontal radiographic view of the chest acquired. RADIATION DOSE: NA LIMITATIONS: None. FINDINGS: LUNGS AND PLEURA: Suboptimal inspiration. Faint basilar densities. Questionable minimal pleural effusions. MEDIASTINUM AND HILAR STRUCTURES: Stable prominence in the right hilum. HEART AND VASCULAR STRUCTURES: Mild cardiac enlargement. BONES: No acute findings. HARDWARE: Central line. OTHER: No other significant finding. IMPRESSION: LOW LUNG VOLUMES WITH PROBABLE BASILAR ATELECTASIS. TECHNICAL DOCUMENTATION: JOB ID: [id number] [employer]- All Rights Reserved Reading location - IP/workstation name: [email or web address]
[2018-06-25] MEDS ORDERED: PROPOFOL 1,000 MG/100 ML INFUS..BTL IV PRN (16:04)
[2018-06-25 17:05] LABS: HEMOGLOBIN 8.1 g/dL (12.0-15.5); MEAN CORPUSCULAR HEMOGLOBIN 30.2 pg (27.0-33.4); MEAN CORPUSCULAR HGB CONC 33.9 g/dL (32.0-36.0); MEAN CORPUSCULAR VOLUME 89 fl (80-97); PLATELET COUNT 146 10^3/uL (150-450); RED CELL DISTRIBUTION WIDTH 16.1 % (11.5-14.0); WHITE BLOOD COUNT 5.6 10^3/uL (4.0-10.5)
--- NOTE | 2018-06-25 17:13 | RADIOLOGY REPORT (SQ) ---
EXAM DESCRIPTION: CHEST SINGLE VIEW COMPLETED DATE/TIME: 06/25/2018 4:56 pm REASON FOR STUDY: intubation COMPARISON: CT chest 06/20/2018 EXAM PARAMETERS: NUMBER OF VIEWS: One view. TECHNIQUE: Single frontal radiographic view of the chest acquired. RADIATION DOSE: NA LIMITATIONS: None. FINDINGS: LUNGS AND PLEURA: Stable scarring and volume loss in the right perihilar region. No acute infiltrates. No pleural effusions or pneumothorax. MEDIASTINUM AND HILAR STRUCTURES: No masses. Contour normal. HEART AND VASCULAR STRUCTURES: Heart normal in size. Normal vasculature. BONES: No acute findings. HARDWARE: Endotracheal tube tip 3 cm above the masood. Right jugular central line tip superior vena cava. Nasogastric tube tip and side port in the stomach. Old clips right upper quadrant post cholec ystectomy OTHER: No other significant finding. IMPRESSION: Stable scarring and volume loss in the right perihilar region. Endotracheal and nasogastric tubes, right jugular central line in good positioning TECHNICAL DOCUMENTATION: JOB ID: [id number] [employer]- All Rights Reserved Reading location - IP/workstation name: [email or web address]
[2018-06-25] MEDS ORDERED: AMPICILLIN SOD INJ 2 GM VIAL IV SCH (18:00)
--- NOTE | 2018-06-25 19:54 | Progress Note ---
Provider Note Provider Note: ID Consult Note Asked to review patient's chart by Dr Waldron; case discussed briefly via telephone. Reviewed patient's chart. Pt not seen or examined. Ms. Diallo is a 72 year old female [facility] resident with PMH including former tobacco use, limited stage small cell lung cancer s/p chemotherapy and radiation , CHF, DM, HTN, and chronic hypoxic respiratory failure/oxygen dependent COPD who presented on 06/20/18 to the [facility] ED for fever, hypotension, cough, and altered mental status. Pt was tachycardic and had a temperature up to 102 F. No localizing features were noted on eam. Pt was found to have chronic scarring in the R perihilar region on CXR and leukocytosis on CBC, prompting further investigation with CT chest that showed a new focal area of parenchymal consolidation within the posterior aspect of the RLL. BCx grew Streptococcus pneumoniae (penicillin sensitive, ANTON <0.03) in one set out of two obtained on admission. Sputum from 06/21/18 grew Streptococcus pneumoniae and also MRSA. Repeat BCx have no further growth. On 06/21 Stool was sent for C difficile PCR, which was positive. Pt was recorded as having only two bowel movements that day. Pt continues to have altered mental status, with confusion and agitation noted earlier in her course, but most recently progressively decreased responsiveness. In terms of antibiotics, pt has received Levaquin 06/20-present, IV vancomycin 06/21-present, cefepime 06/23-06/24 --> Rocephin 06/25 (present), TMP/SMX 06/24- present and PO vancomycin 250 mg q6h 06/21 to present. Impression 1. sepsis due to bacteremic pneumococcal pneumonia, r/o meningitis - new RLL infiltrate, Strep pneumo in blood and sputum. She has clear evidence of invasive pneumococcal disease to account for her presentation. - Altered mental status can be secondary to toxic/metabolic encephalopathy or delirium but if the patient's presentation is suspicious for meningitis, an LP would be the way to secure the diagnosis or to rule it out. An LP would be indicated. - If the patient has bacterial menigitis, it would be pneumococcal meningitis. Pt's allergy to Augmentin/amoxicillin of "visual hallucinations" should not preclude use of ampicillin if indicated for suspected Listeria meningitis, but Listeria meningitis is not likely the cause of meningitis in this setting, with pneumococcal bacteremia. 2. colonization with MRSA - Suspect MRSA in sputum represents colonization. MRSA pneumonia is less common than pneumococcal pneumonia and, when it occurs, MRSA tends to cause severe necrotizing pneumonia and not the relatively more subtle RLL parenchymal infiltrate the patient had. 3. colonization with Clostridium difficile - PCR for C difficle is exceedingly sensitive, can detect colonization in addition to true infection, which has to be clinically determined. If pt is not having ongoing diarrhea, has benign abdomen, and test was ordered with low suspicion for C difficile (pt did not meet definition of diarrhea on 06/21), this is most likely colonization. However, care needs to be taken because colonization can precede infection, and some antibiotics can be more likely to cause gut dysbiosis that predisposes to development of true Clostridium difficile diarrhea. Recommendations - Discontinue TMP/SMX - Discontinue IV vancomycin - Discontinue IV Levaquin; avoid fluoroquinolones if possible given C difficile colonization. - For now, IV Rocephin can be continued at meningitis dose while awaiting LP and CSF analysis, in conjunction with PO vancomycin as prophylaxis for C difficile Bassam Garcia MD [facility] pager [phone]
[2018-06-25] MEDS: FENTANYL CITRATE INJ/PF 100 MCG/2 ML AMPUL IV PRN (21:15)
[2018-06-25] MEDS: METOPROLOL TARTRATE PF/INJ 5 MG/5 ML SDV IV PRN (21:16)
[2018-06-25] MEDS: AMPICILLIN SODIUM 2 GM in NORMAL SALINE 100 ML IV SCH (21:23)
[2018-06-25] MEDS: CEFTRIAXONE SODIUM 2,000 MG in DEXTROSE 5%-WATER 100 ML IV SCH (21:25)
[2018-06-26] MEDS: FENTANYL CITRATE INJ/PF 100 MCG/2 ML AMPUL IV PRN ×2 (02:08→07:43)
[2018-06-26] MEDS: AMPICILLIN SODIUM 2 GM in NORMAL SALINE 100 ML IV SCH ×5 (02:13→14:34)
[2018-06-26] MEDS: IPRATROPIUM BROMIDE 0.02% NEB 0.5 MG/2.5 ML AMPUL NEB SCH ×4 (02:15→20:23)
[2018-06-26] MEDS: LEVALBUTEROL HCL NEB 1.25 MG/3 ML AMPUL NEB SCH ×4 (02:15→20:23)
[2018-06-26] MEDS: VANCOMYCIN HCL INJ 500 MG VIAL PO SCH ×5 (02:22→20:50)
[2018-06-26] MEDS: FLUTICASONE NASAL SPRAY 50 MCG/SPRY 120 SPRAY/16 GM NASL SCH ×2 (02:23→10:16)
[2018-06-26] MEDS: METHYLPREDNISOLONE INJ 125 MG/2 ML SDV IV SCH ×3 (02:26→14:33)
[2018-06-26 05:48] LABS: HEMATOCRIT 23.5 % (36.0-47.0); HEMOGLOBIN 8.1 g/dL (12.0-15.5); MEAN CORPUSCULAR HEMOGLOBIN 30.1 pg (27.0-33.4); MEAN CORPUSCULAR HGB CONC 34.6 g/dL (32.0-36.0); MEAN CORPUSCULAR VOLUME 87 fl (80-97); PLATELET COUNT 147 10^3/uL (150-450); RED CELL DISTRIBUTION WIDTH 16.3 % (11.5-14.0); WHITE BLOOD COUNT 7.4 10^3/uL (4.0-10.5)
[2018-06-26 06:05] LABS: ALANINE AMINOTRANSFERASE 29 U/L (9-52); ALKALINE PHOSPHATASE 40 U/L (38-126); ANION GAP 9 (5-19); ASPARTATE AMINO TRANSFERASE 19 U/L (14-36); BILIRUBIN,DIRECT 0.1 mg/dL (0.0-0.4); BILIRUBIN,TOTAL 0.1 mg/dL (0.2-1.3); BLOOD UREA NITROGEN 25 mg/dL (7-20); CARBON DIOXIDE 24 mmol/L (22-30); CHLORIDE 92 mmol/L (98-107); GLUCOSE 80 mg/dL (75-110); POTASSIUM 3.2 mmol/L (3.6-5.0); SODIUM 124.7 mmol/L (137-145); TOTAL PROTEIN 4.1 g/dL (6.3-8.2); TRIGLYCERIDES 219 mg/dL (<150)
--- NOTE | 2018-06-26 06:09 | RADIOLOGY REPORT (SQ) ---
EXAM DESCRIPTION: XR CHEST 1 VIEW COMPLETED DATE/TME: 06/26/2018 19:00 CLINICAL HISTORY: 72 years, Female, Intubated COMPARISON: 06/25/2018 chest x-ray NUMBER OF VIEWS: 1 TECHNIQUE: Portable chest LIMITATIONS: None. FINDINGS: Improved aeration of the right lung base. Grossly stable indwelling lines and catheters. Airspace opacity in the right perihilar region, as before. No discrete pneumothorax. Osteopenia. IMPRESSION: Improved aeration of the right lung base. Other findings are grossly stable 2010 [employer]- All Rights Reserved
[2018-06-26 06:29] LABS: CALCIUM 6.8 mg/dL (8.4-10.2)
[2018-06-26 06:31] LABS: ABSOLUTE LYMPHOCYTES# (MANUAL) 0.4 10^3/uL (0.5-4.7); ABSOLUTE MONOCYTES # (MANUAL) 0.4 10^3/uL (0.1-1.4); ABSOLUTE NEUTROPHILS# (MANUAL) 6.7 10^3/uL (1.7-8.2); BASOPHILS % (MANUAL) 0 % (0-2); EOSINOPHILS % (MANUAL) 0 % (0-6); LYMPHOCYTES % (MANUAL) 5 % (13-45); MONOCYTES % (MANUAL) 5 % (3-13); SEGMENTED NEUTROPHILS % (MAN) 90 % (42-78); TOTAL CELLS COUNTED 100
[2018-06-26 06:33] LABS: OVALOCYTES 1+; TOXIC GRANULATION SLIGHT; TOXIC VACUOLATION PRESENT
[2018-06-26 06:34] LABS: ANISOCYTOSIS 1+; HELMET CELLS 1+; PLATELET COMMENT ADEQUATE; POIKILOCYTOSIS 2+; TEAR DROP CELLS 2+
[2018-06-26] MEDS: HEPARIN SOD (PORCINE) 5,000 UNIT/ML 1 ML SYRINGE SUBCUT SCH (06:48)
[2018-06-26] MEDS: LEVOTHYROXINE SODIUM 0.088 MG TABLET PO SCH (06:49)
[2018-06-26] MEDS ORDERED: NORMAL SALINE INJ/PF 0.9% 10 ML SDV IV ONE (08:30)
[2018-06-26 08:45] LABS: ARTERIAL BLOOD BASE EXCESS -6.2 mmol/L; ARTERIAL BLOOD H2CO3 1.24 mmol/L (1.05-1.35); ARTERIAL BLOOD HCO3 19.8 mmol/L (20-24); ARTERIAL BLOOD PCO2 41.3 mmHg (35-45); ARTERIAL BLOOD PO2 76.6 mmHg (80-100)
[2018-06-26] MEDS ORDERED: MIDAZOLAM HCL 50 MG/100 ML RTUINJ ONE (08:45)
[2018-06-26 08:49] LABS: ARTERIAL BLOOD FIO2 30%
[2018-06-26] MEDS: MIDAZOLAM HCL 50 MG/100 ML RTUINJ IV PRN ×2 (08:58→20:52)
[2018-06-26] MEDS ORDERED: NOREPINEPHRINE BITARTRATE INJ/PF 4 MG/4 ML SDV IV ONE (09:24)
[2018-06-26] MEDS: MAGNESIUM SULFATE/D5W 1 GM/100 ML RTUPB IV SCH ×2 (09:25→10:17)
[2018-06-26] MEDS: DEXTROSE 5%-WATER 250 ML with NOREPINEPHRINE BITARTRATE 4 MG IV PRN ×4 (09:30→20:05)
--- NOTE | 2018-06-26 09:30 | PDOC PROGRESS REPORT ---
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 CT scan of the chest shows right -sided infiltrate with an elevated WBC and she was started on empiric antibiotic therapy. Later on she was transferred to ICU for possible sepsis and pneumonia. She was on pressors and broad-spectrum antibiotics she is off the pressors right now. Further recommendations of the ID hospice care sales consultant Dr. Moody Bactrim IV vancomycin and IV levofloxacin was discontinued, presently patient is on IV ceftriaxone p.o. vancomycin and also on ampicillin. Patient is running low-grade fever. She was presently intubated. She is hypotensive at this time blood pressure is 75/45 not on pressors getting IV fluids normal saline at 75 cc/h Reason For Visit: SEPSIS DIABETES, COPD EXACERBATION PNEUMONIA Physical Exam Vital Signs: Temp Pulse Resp BP Pulse Ox 99.1 F 115 H 24 H 97/71 L 100 06/26/18 08:00 06/26/18 08:00 06/26/18 08:00 06/26/18 08:00 06/26/18 08:00 Intake & Output 06/25/18 06/26/18 06/27/18 06:59 06:59 06:59 Intake Total 3385.625 3241.250 Output Total 586 815 60 Balance 2799.625 2426.250 -60 Weight 79.1 kg 86.1 kg Eye exam: PRESENT: PERRLA Neck exam: ABSENT: carotid bruit, JVD, lymphadenopathy, thyromegaly Respiratory exam: PRESENT: other - Patient was intubated at this time and she is on propofol for sedation be going to change her to Versed because of blood pressure running low and pulse ox's are 96%. Cardiovascular exam: PRESENT: tachycardia GI/Abdominal exam: PRESENT: normal bowel sounds, soft. ABSENT: tenderness Neurological exam: PRESENT: other - Patient is intubated and under sedation. Pupils are equal and react to light. Results Laboratory Results: 06/26/18 04:20 06/26/18 04:20 06/25/18 06/25/18 06/25/18 08:22 10:57 14:40 WBC RBC Hgb Hct MCV MCH MCHC RDW Plt Count Seg Neutrophils % Lymphocytes % Monocytes % Eosinophils % Basophils % Absolute Neutrophils Absolute Lymphocytes Absolute Monocytes Absolute Eosinophils Absolute Basophils Carbonic Acid 2.30 H HCO3/H2CO3 Ratio 9:1 ABG pH 7.09 L* ABG pCO2 76.4 H* ABG pO2 93.9 ABG HCO3 22.8 ABG O2 Saturation 93.7 L ABG Base Excess -7.5 FiO2 2L Sodium 127.6 L Potassium 3.9 Chloride 91 L Carbon Dioxide 24 Anion Gap 13 BUN 28 H Creatinine 1.60 H Est GFR ( Amer) 38 L Est GFR (Non-Af Amer) 32 L Glucose 145 H Calcium 7.4 L Magnesium Total Bilirubin 0.1 L AST 20 ALT 17 Alkaline Phosphatase 46 Total Protein 5.1 L Albumin 2.6 L Triglycerides Blood Type O POSITIVE Antibody Screen NEGATIVE 06/25/18 06/26/18 06/26/18 16:00 04:20 04:20 WBC 5.6 7.4 RBC 2.70 L 2.70 L Hgb 8.1 L 8.1 L Hct 24.0 L 23.5 L MCV 89 87 MCH 30.2 30.1 MCHC 33.9 34.6 RDW 16.1 H 16.3 H Plt Count 146 L 147 L Seg Neutrophils % Not Reportable Lymphocytes % Not Reportable Monocytes % Not Reportable Eosinophils % Not Reportable Basophils % Not Reportable Absolute Neutrophils Not Reportable Absolute Lymphocytes Not Reportable Absolute Monocytes Not Reportable Absolute Eosinophils Not Reportable Absolute Basophils Not Reportable Carbonic Acid HCO3/H2CO3 Ratio ABG pH ABG pCO2 ABG pO2 ABG HCO3 ABG O2 Saturation ABG Base Excess FiO2 Sodium 124.7 L Potassium 3.2 L Chloride 92 L Carbon Dioxide 24 Anion Gap 9 BUN 25 H Creatinine 1.56 H Est GFR ( Amer) 39 L Est GFR (Non-Af Amer) 32 L Glucose 80 Calcium 6.8 L* Magnesium Total Bilirubin 0.1 L AST 19 ALT 29 Alkaline Phosphatase 40 Total Protein 4.1 L Albumin 2.0 L Triglycerides 219 H Blood Type Antibody Screen 06/26/18 06/26/18 04:20 08:30 WBC RBC Hgb Hct MCV MCH MCHC RDW Plt Count Seg Neutrophils % Lymphocytes % Monocytes % Eosinophils % Basophils % Absolute Neutrophils Absolute Lymphocytes Absolute Monocytes Absolute Eosinophils Absolute Basophils Carbonic Acid 1.24 HCO3/H2CO3 Ratio 15:1 ABG pH 7.30 L ABG pCO2 41.3 ABG pO2 76.6 L ABG HCO3 19.8 L ABG O2 Saturation 94.0 ABG Base Excess -6.2 FiO2 30% Sodium Potassium Chloride Carbon Dioxide Anion Gap BUN Creatinine Est GFR ( Amer) Est GFR (Non-Af Amer) Glucose Calcium Magnesium 1.5 L Total Bilirubin AST ALT Alkaline Phosphatase Total Protein Albumin Triglycerides Blood Type Antibody Screen Impressions: Abdomen/Pelvis CT 06/20/18 22:27 IMPRESSION: New focal area of parenchymal consolidation within the posterior aspect of the right lower lung, image 33 which could be secondary to an acute infectious process/area of pneumonitis. Postobstructive atelectasis/pneumonitis is a consideration. Small right pleural fluid collection, decreased when compared with the prior exam. Partially visualized air within the soft tissues of the upper extremities could be secondary to recent instrumentation. Please correlate. No acute intra-abdominal abnormality. Chest CT 06/20/18 22:27 IMPRESSION: New focal area of parenchymal consolidation within the posterior aspect of the right lower lung, image 33 which could be secondary to an acute infectious process/area of pneumonitis. Postobstructive atelectasis/pneumonitis is a consideration. Small right pleural fluid collection, decreased when compared with the prior exam. Partially visualized air within the soft tissues of the upper extremities could be secondary to recent instrumentation. Please correlate. No acute intra-abdominal abnormality. Head CT 06/23/18 00:00 IMPRESSION: No acute intracranial findings. Head MRI 06/24/18 13:39 IMPRESSION: ATROPHY AND CHRONIC MICRO-VASCULAR ISCHEMIC CHANGES. OTHERWISE NORMAL MRI OF THE BRAIN WITHOUT INTRAVENOUS GADOLINIUM CONTRAST. EVIDENCE OF ACUTE STROKE: NO. Chest X-Ray 06/26/18 19:00 IMPRESSION: Improved aeration of the right lung base. Other findings are grossly stable 2010 [employer]- All Rights Reserved Assessment & Plan - Diagnosis (1) Acute respiratory failure with hypoxia and hypercapnia Is this a current diagnosis for this admission?: Yes Plan: 06/26/2018 acute respiratory failure with hypoxia status post intubation, right lower infiltration in the chest x-ray is improving. Blood cultures are negative. Check pulmonology for consultation. Latest ABG today pH is 7.3 piece CO2 41 PO2 76% bicarb is 20 this is is done while the patient is intubated. I am planning to change the sedation from propofol to Versed today because of the low blood pressures. (2) Altered mental status Qualifiers: Altered mental status type: delirium Qualified Code(s): R41.0 - Disorientation, unspecified Is this a current diagnosis for this admission?: Yes (3) Pneumococcal bacteremia Is this a current diagnosis for this admission?: Yes Plan: 06/26/2018-patient is presently on IV ceftriaxone and ampicillin. Latest blood cultures are negative. The blood cultures from 06/21/2018 indicates MRSA with strep pneumonia. Following the ID recommendations. The MRI of the brain rule out any acute changes. Patient is still having the low-grade. fever. The plan is to continue the present antibiotic therapy and follow the further recommendations from Dr. Garcia. We are planning to do the daily follow-up chest x-rays. (4) Septic shock Is this a current diagnosis for this admission?: Yes Plan: 06/26/2018-blood cultures from 1120 2017+ for strep pneumonia sputum cultures from 1121 2017+ for MRSA and the latest blood cultures are negative. Patient is presently on ampicillin 2 grams IV every 4 hours and also on ceftriaxone 2 g IV daily. Patient is hypotensive this morning blood pressure 75/45 and IV fluids normal saline running at 75 cc/h I requested the nurse to give to 50 cc bolus of normal saline and also put the order for Levophed to titrate to improve the blood pressures doing the gentle hydration because of the patient's underlying history of congestive heart failure. (5) Hyponatremia Is this a current diagnosis for this admission?: Yes Plan: 06/26/2018 patient's sodium level is 124.7 today, on admission his it is around 141 there is a gradual and significant drop of sodiums in the last 1248 hrs. did drop his sodium despite the patient is getting normal saline at 75 cc/h. The urinary output in the last 24 hours is 800 cc and input is to around 2.4 L. Because of the significant drop in sodium and requesting a nephrology consult. Patient's creatinine is 1.56 stable. We are going to continue to closely monitor the sodium levels. (6) C. difficile colitis Is this a current diagnosis for this admission?: Yes Plan: 06/26/2018-cultures were positive for C. difficile and on p.o. vancomycin and contact precautions. We will continue the p.o. vancomycin. (7) CHF (congestive heart failure) Qualifiers: Heart failure type: diastolic Heart failure chronicity: acute on chronic Qualified Code(s): I50.33 - Acute on chronic diastolic (congestive) heart failure Is this a current diagnosis for this admission?: Yes Plan: 06/26/2018 patient has history of congestive heart failure and despite being the low blood pressures. Given the gentle hydration to prevent any fluid overload. If necessary we can to start her on pressors. I am going to request for the echocardiogram. (9) Hypokalemia Is this a current diagnosis for this admission?: Yes Plan: 06/26/2018-potassium is 3.2 today because to give potassium supplementation 40 mg IV in normal saline back. (10) Diabetes mellitus type 2 in obese Is this a current diagnosis for this admission?: Yes Plan: 06/26/2018-patient's blood sugars are running low latest blood sugar is around 80. She is n.p.o. and intubated. Patient is to be on metformin at home it was on hold during this hospital stay. (11) COPD exacerbation Is this a current diagnosis for this admission?: Yes Plan: 06/26/2018-patient is admitted for fever and pneumonia status post intubation. Culture positive for strep pneumonia. It is on ceftriaxone and ampicillin. (12) Hypomagnesemia Is this a current diagnosis for this admission?: Yes Plan: 06/26/2018 latest magnesium level is 1.5 planning to give her magnesium supplementation 2 g IV 1 dose. (13) Encephalopathy Is this a current diagnosis for this admission?: Yes Plan: 06/26/2018-the cause for her altered mental status/and can follow-up with may be secondary to either infectious process metabolic causes latest sodium is 124. MRI of the brain was done no acute changes. (14) Anemia Qualifiers: Anemia type: unspecified type Qualified Code(s): D64.9 - Anemia, unspecified Is this a current diagnosis for this admission?: Yes Plan: 06/26/2018 patient has history of chronic anemia. Her hemoglobin is stable around 8.1. (15) GERD (gastroesophageal reflux disease) Qualifiers: Esophagitis presence: esophagitis presence not specified Qualified Code(s) : K21.9 - Gastro-esophageal reflux disease without esophagitis Is this a current diagnosis for this admission?: Yes Plan: 06/26/2018 plan for today is to continue PPIs. - Time Time Spent with patient: 35 or more minutes Medications reviewed and adjusted accordingly: Yes
[2018-06-26] MEDS ORDERED: CEFTRIAXONE 2 GM/D5W RTU 2 GM/50 ML RTUPB IV SCH (10:00)
[2018-06-26] MEDS: POTASSI CL 40 MEQ/NS 1L 1,000 ML IV PRN (10:15)
[2018-06-26] MEDS: TIOTROPIUM BROMIDE DPI 5 CAP/KIT (18 MCG/CAP) IH SCH (10:17)
[2018-06-26 10:54] LABS: ANION GAP 11 (5-19); BLOOD UREA NITROGEN 25 mg/dL (7-20); CARBON DIOXIDE 22 mmol/L (22-30); CHLORIDE 93 mmol/L (98-107); GLUCOSE 122 mg/dL (75-110); POTASSIUM 3.5 mmol/L (3.6-5.0)
[2018-06-26] MEDS: FAMOTIDINE 20 MG TABLET PO SCH (11:00)
[2018-06-26] MEDS: LACTULOSE SYRUP 20 GM/30 ML UDCUP PO SCH (11:00)
--- NOTE | 2018-06-26 13:31 | XCELERA REPORT ---
[address] [address] Transthoracic Echocardiogram Report Name: TRENTON MCCOY Age: 72 yrs Gender: Female : 1945 Patient Status: Inpatient Patient Location: ICU^609^A Study Date: 06/26/2018 10:26 AM Height: 65 in Weight: 189 lb BSA: 1.9 m2 Procedure: A two-dimensional transthoracic echocardiogram with color flow and Doppler was performed. Study Quality: Fair. Reason For Study: chf History: CHF. Ordering Physician: EMILY HEWITT Performed By: Jaquelin Mcdaniel Interpretation Summary The left ventricle is normal in size. There is normal left ventricular wall thickness. LV EF is > alice 65% Left ventricular systolic function is normal. Doppler measurements suggest impaired left ventricular relaxation, which is associated with grade I/IV or mild diastolic dysfunction The left ventricular wall motion is normal. There is no thrombus. There is no ventricular septal defect visualized. The right ventricle is not well visualized secondary to technical limitations Suspect RV enlargement. Probablynormal RA size. The interatrial septum is intact with no evidence for an atrial septal defect. There is no evidence of mitral valve prolapse. There is no mitral valve stenosis. There is a mild amount of mitral regurgitation There is no aortic valvular vegetation. There is mild aortic stenosis There is a peak gradient of 16 mm of Hg. There is no LVOT obstruction. No hemodynamically significant valvular aortic stenosis. No aortic regurgitation is present. There is a mild amount of tricuspid regurgitation There is mild pulmonary hypertension by echo RVSP is 40 to 45 mm of Hg , with RA mean of 10 to 15. There is no pulmonic valvular stenosis. There is no pulmonic valvular regurgitation. The aortic root is normal size. There is a small pericardial effusion that is circumferential There are no echocardiographic or Doppler indications for cardiac tamponade MMode/2D Measurements & Calculations RVDd: 4.0 cm LVIDd: 4.2 cm FS: 44.9 % Ao root diam: 2.5 cm IVSd: 0.86 cm LVIDs: 2.3 cm EDV(Teich): 77.9 ml Ao root area: 5.1 cm2 LVPWd: 0.89 cm ESV(Teich): 18.3 ml LA dimension: 2.9 cm EF(Teich): 76.6 % Doppler Measurements & Calculations MV E max mellisa: MV P1/2t max mellisa: Ao V2 max: LV V1 max P.9 cm/sec 112.4 cm/sec 200.1 cm/sec 7.2 mmHg MV A max mellisa: MV P1/2t: 78.1 msec Ao max PG: LV V1 max: 164.5 cm/sec MVA(P1/2t): 2.8 cm2 16.0 mmHg 133.8 cm/sec MV E/A: 0.68 MV dec slope: 421.5 cm/sec2 MV dec time: 0.27 sec PA V2 max: TR max mellisa: MV P1/2t-pr_phl: 110.6 cm/sec 272.8 cm/sec 78.1 msec PA max P.9 mmHgTR max P.8 mmHg Left Ventricle The left ventricle is normal in size. There is normal left ventricular wall thickness. LV EF is > alice 65%. Left ventricular systolic function is normal. Doppler measurements suggest impaired left ventricular relaxation, which is associated with grade I/IV or mild diastolic dysfunction. The left ventricular wall motion is normal. There is no thrombus. There is no ventricular septal defect visualized. Right Ventricle The right ventricle is not well visualized secondary to technical limitations. Suspect RV enlargement. Atria Probablynormal RA size. The left atrial size is normal. The interatrial septum is intact with no evidence for an atrial septal defect. Mitral Valve There is mild mitral annular calcification. There is no evidence of mitral valve prolapse. There is no vegetation seen on the mitral valve. There is no mitral valve stenosis. There is a mild amount of mitral regurgitation. Aortic Valve There is no aortic valvular vegetation. There is mild aortic stenosis. There is a peak gradient of 16 mm of Hg. There is no LVOT obstruction. No hemodynamically significant valvular aortic stenosis. No aortic regurgitation is present. Tricuspid Valve There is no tricuspid stenosis. There is a mild amount of tricuspid regurgitation. There is mild pulmonary hypertension by echo. RVSP is 40 to 45 mm of Hg , with RA mean of 10 to 15. Pulmonic Valve There is no pulmonic valvular stenosis. There is no pulmonic valvular regurgitation. Great Vessels The aortic root is normal size. Effusions There is a small pericardial effusion that is circumferential. There are no echocardiographic or Doppler indications for cardiac tamponade. : EMILY HEWITT > Susan Mishra
[2018-06-26 15:00] LABS: ANION GAP 12 (5-19); BLOOD UREA NITROGEN 23 mg/dL (7-20); CALCIUM 7.3 mg/dL (8.4-10.2); CARBON DIOXIDE 21 mmol/L (22-30); CHLORIDE 94 mmol/L (98-107); GLUCOSE 137 mg/dL (75-110); POTASSIUM 4.1 mmol/L (3.6-5.0); SODIUM 126.7 mmol/L (137-145)
--- NOTE | 2018-06-26 16:36 | PDOC CONSULTATION ---
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 She was brought to the ER. She was found to be hypotensive with a fever of 102 and a nonproductive cough. In the ER a CT scan of the chest was done that showed right-sided infiltrate with an elevated WBC. She was started on empiric antibiotic therapy. Later on she was transferred to ICU for possible sepsis and pneumonia. She was started on levophed and normal saline for the hypotension. She was found to have several severe bacterial infections of MRSA and C-diff. Further consultation was seeked. Dr. Moody, the consulting ID doctor recommended, Bactrim IV, vancomycin and IV levofloxacin to be discontinued, which were. Currently the antibiotics are IV ceftriaxone, p.o. vancomycin and ampicillin. Patient also became confused on 06/23 and then went into respritory distress on 06/25. At that time she was intubated, she also had a sodium drop to 124. Patient is currently intubated, sedated, on levophed and has normal saline with potassium running at 75mL/h. Past Medical History Cardiac Medical History: Reports: Coronary Artery Disease, Myocardial Infarction Denies: DVT, Hyperlipidemia, Pulmonary Embolism Pulmonary Medical History: Reports: Asthma, Bronchitis, Chronic Obstructive Pulmonary Disease (COPD) - 2 L nasal home oxygen, Pneumonia, Respiratory Failure - Chronic respiratory failure Denies: Sleep Apnea, Tuberculosis Neurological Medical History: Denies: Seizures Endocrine Medical History: Reports: Diabetes Mellitus Type 2, Hypothyroidism Denies: Diabetes Mellitus Type 1, Hyperthyroidism Renal/ Medical History: Denies: End Stage Renal Disease Malignancy Medical History: Reports: Brain Cancer - Lung cancer with brain metastases, 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 GI Medical History: Reports: Gastroesophageal Reflux Disease Denies: Cirrhosis, Hepatitis Musculoskeltal Medical History: Reports: Arthritis Psychiatric Medical History: Reports: Dementia, Depression Denies: Bipolar Disorder Infectious Medical History: Reports: Clostridium Difficile Past Surgical History Past Surgical History: Reports: Cholecystectomy, Orthopedic Surgery - Foot surgery, Other - cataract bilateral Social History Lives with: Skilled Nursing Smoking Status: Former Smoker Frequency of Alcohol Use: None Hx Recreational Drug Use: No Drugs: None Hx Prescription Drug Abuse: No - Advance Directive Resuscitation Status: Full Code Family History Parental Family History Reviewed: No Children Family History Reviewed: NA Sibling(s) Family History Reviewed.: NA Medication/Allergy Home Medications: Albuterol Sulfate [Ventolin 0.083% Neb 2.5 mg/3 ml Ampul] 1 vial NEB RTQ6 Furosemide [Lasix 40 mg Tablet] 40 mg PO DAILY 06/21/18 Lactulose [Constulose 10 gm/15 mL Oral Solution] 20 gm PO DAILY 06/21/18 Levalbuterol HCl [Xopenex Neb 1.25 mg/3 ml Ampul] 1.25 mg NEB RTQ4HP PRN Levothyroxine Sodium [Synthroid 0.112 mg Tablet] 112 mcg PO DAILY 06/21/18 Lisinopril [Prinivil 2.5 mg Tablet] 2.5 mg PO DAILY 06/21/18 Menthol/Camphor [Sarna Anti-Itch Lotion] 1 applic TP TID 06/21/18 Metformin HCl [Glucophage 500 mg Tablet] 500 mg PO BID 06/21/18 Olopatadine HCl [Patanol 0.1% Oph Soln 5 Ml Bottle] 1 drop OU BID 06/21/18 Pantoprazole Sodium [Protonix] 40 mg PO DAILY 06/21/18 Sertraline HCl [Zoloft 50 mg Tablet] 50 mg PO DAILY 06/21/18 Tiotropium [place] [Spiriva Handihaler 5 Cap/Kit (18 Mcg/Cap)] 1 cap IH DAILY Tramadol HCl [Ultram 50 mg Tablet] 50 mg PO Q12HP PRN 06/21/18 Allergies/Adverse Reactions: azithromycin Allergy (Verified 06/20/18 20:48) amoxicillin [Amoxicillin] Adverse Reaction (Verified 06/20/18 20:48) visual hallucinations erythromycin base [Erythromycin Base] Adverse Reaction (Verified 06/20/18 20:48) visual hallucinations Potassium Clavulanate * [From Augmentin] Adverse Reaction (Verified 06/20/18 20: 48) visual hallucinations Review of Systems ROS unobtainable: Due to endotracheal tube Physical Exam Vital Signs: Temp Pulse Resp BP Pulse Ox 98.6 F 103 H 15 167/148 H 96 06/26/18 15:47 06/26/18 14:07 06/26/18 14:25 06/26/18 14:25 06/26/18 14:25 Intake & Output 06/25/18 06/26/18 06/27/18 06:59 06:59 06:59 Intake Total 3385.625 3241.250 287 Output Total 586 815 485 Balance 2799.625 2426.250 -198 Weight 79.1 kg 86.1 kg General appearance: PRESENT: no acute distress, well-developed, well-nourished Eye exam: PRESENT: conjunctiva pink, PERRLA. ABSENT: scleral icterus Mouth exam: PRESENT: moist, neck supple Neck exam: ABSENT: JVD, tracheal deviation Respiratory exam: PRESENT: crackles. ABSENT: accessory muscle use, clear to auscultation jeff, rales, wheezes Cardiovascular exam: PRESENT: +S1, +S2 GI/Abdominal exam: PRESENT: soft. ABSENT: ascites, distended, tenderness Extremities exam: ABSENT: tenderness, +1 edema, +2 edema Neurological exam: PRESENT: other - -sedated. ABSENT: alert, awake, oriented to person, oriented to place, oriented to time, oriented to situation Skin exam: PRESENT: dry, intact Results Laboratory Results: 06/26/18 04:20 06/26/18 14:25 06/25/18 06/26/18 06/26/18 16:00 04:20 04:20 WBC 5.6 7.4 RBC 2.70 L 2.70 L Hgb 8.1 L 8.1 L Hct 24.0 L 23.5 L MCV 89 87 MCH 30.2 30.1 MCHC 33.9 34.6 RDW 16.1 H 16.3 H Plt Count 146 L 147 L Seg Neutrophils % Not Reportable Lymphocytes % Not Reportable Monocytes % Not Reportable Eosinophils % Not Reportable Basophils % Not Reportable Absolute Neutrophils Not Reportable Absolute Lymphocytes Not Reportable Absolute Monocytes Not Reportable Absolute Eosinophils Not Reportable Absolute Basophils Not Reportable Carbonic Acid HCO3/H2CO3 Ratio ABG pH ABG pCO2 ABG pO2 ABG HCO3 ABG O2 Saturation ABG Base Excess FiO2 Sodium 124.7 L Potassium 3.2 L Chloride 92 L Carbon Dioxide 24 Anion Gap 9 BUN 25 H Creatinine 1.56 H Est GFR ( Amer) 39 L Est GFR (Non-Af Amer) 32 L Glucose 80 Serum Osmolality Calcium 6.8 L* Magnesium Total Bilirubin 0.1 L AST 19 ALT 29 Alkaline Phosphatase 40 Total Protein 4.1 L Albumin 2.0 L Triglycerides 219 H 06/26/18 06/26/18 06/26/18 04:20 08:30 10:10 WBC RBC Hgb Hct MCV MCH MCHC RDW Plt Count Seg Neutrophils % Lymphocytes % Monocytes % Eosinophils % Basophils % Absolute Neutrophils Absolute Lymphocytes Absolute Monocytes Absolute Eosinophils Absolute Basophils Carbonic Acid 1.24 HCO3/H2CO3 Ratio 15:1 ABG pH 7.30 L ABG pCO2 41.3 ABG pO2 76.6 L ABG HCO3 19.8 L ABG O2 Saturation 94.0 ABG Base Excess -6.2 FiO2 30% Sodium 126.0 L Potassium 3.5 L Chloride 93 L Carbon Dioxide 22 Anion Gap 11 BUN 25 H Creatinine 1.57 H Est GFR ( Amer) 39 L Est GFR (Non-Af Amer) 32 L Glucose 122 H Serum Osmolality Calcium 7.0 L* Magnesium 1.5 L Total Bilirubin AST ALT Alkaline Phosphatase Total Protein Albumin Triglycerides 06/26/18 06/26/18 06/26/18 10:10 10:10 14:25 WBC RBC Hgb Hct MCV MCH MCHC RDW Plt Count Seg Neutrophils % Lymphocytes % Monocytes % Eosinophils % Basophils % Absolute Neutrophils Absolute Lymphocytes Absolute Monocytes Absolute Eosinophils Absolute Basophils Carbonic Acid HCO3/H2CO3 Ratio ABG pH ABG pCO2 ABG pO2 ABG HCO3 ABG O2 Saturation ABG Base Excess FiO2 Sodium 126.7 L Potassium 4.1 Chloride 94 L Carbon Dioxide 21 L Anion Gap 12 BUN 23 H Creatinine 1.62 H Est GFR ( Amer) 38 L Est GFR (Non-Af Amer) 31 L Glucose 137 H Serum Osmolality 264 L Calcium 7.3 L Magnesium Total Bilirubin AST ALT Alkaline Phosphatase Total Protein Albumin 2.2 L Triglycerides 06/21/18 14:00 Sputum Gram Stain - Final 06/21/18 14:00 Sputum Sputum Culture - Final Streptococcus Pneumoniae Mrsa (Meth Resis Staph Aureus) Reduced Normal Jayshree 06/26/18 10:10 NT-Pro-B Natriuret Pep 89711 H Impressions: Abdomen/Pelvis CT 06/20/18 22:27 IMPRESSION: New focal area of parenchymal consolidation within the posterior aspect of the right lower lung, image 33 which could be secondary to an acute infectious process/area of pneumonitis. Postobstructive atelectasis/pneumonitis is a consideration. Small right pleural fluid collection, decreased when compared with the prior exam. Partially visualized air within the soft tissues of the upper extremities could be secondary to recent instrumentation. Please correlate. No acute intra-abdominal abnormality. Chest CT 06/20/18 22:27 IMPRESSION: New focal area of parenchymal consolidation within the posterior aspect of the right lower lung, image 33 which could be secondary to an acute infectious process/area of pneumonitis. Postobstructive atelectasis/pneumonitis is a consideration. Small right pleural fluid collection, decreased when compared with the prior exam. Partially visualized air within the soft tissues of the upper extremities could be secondary to recent instrumentation. Please correlate. No acute intra-abdominal abnormality. Head CT 06/23/18 00:00 IMPRESSION: No acute intracranial findings. Head MRI 06/24/18 13:39 IMPRESSION: ATROPHY AND CHRONIC MICRO-VASCULAR ISCHEMIC CHANGES. OTHERWISE NORMAL MRI OF THE BRAIN WITHOUT INTRAVENOUS GADOLINIUM CONTRAST. EVIDENCE OF ACUTE STROKE: NO. Chest X-Ray 06/26/18 19:00 IMPRESSION: Improved aeration of the right lung base. Other findings are grossly stable 2010 [employer]- All Rights Reserved Assessment & Plan - Diagnosis (1) Hyponatremia Is this a current diagnosis for this admission?: Yes Plan: Will look to get a urine sodium and urine osmolality to go with the recent serum osmolality. Continue on normal saline. Will look to further pursue once urine sodium and urine osmolality come back. (2) MARY LOU (acute kidney injury) Plan: nonoliguric, at this time elevation looks to be multifactorial, ATN due to the current septic infection and hypotension. Continue on current normal saline and levophed. Will look to adjust all antibiotics and medications to proper GFR. (3) Septic shock Is this a current diagnosis for this admission?: Yes Plan: currently on antibiotics per ID recommendations, levophed and normal saline. (4) Acute respiratory failure with hypoxia and hypercapnia Is this a current diagnosis for this admission?: Yes Plan: currently intubated. (5) Hypokalemia Plan: continue on current potassium replacement. (6) Pneumonia Qualifiers: Pneumonia type: due to unspecified organism Laterality: right Lung location: unspecified part of lung Qualified Code(s): J18.9 - Pneumonia, unspecified organism Is this a current diagnosis for this admission?: Yes Plan: on antibiotics, per ID recommendations (7) Fever Qualifiers: Fever type: unspecified Qualified Code(s): R50.9 - Fever, unspecified Plan: on antibiotics per ID
--- NOTE | 2018-06-26 18:20 | Progress Note ---
Provider Note Provider Note: ID Consult Follow Up Note Discussed patient with Dr Jo via telephone briefly this afternoon and reviewed her chart, including VS, labs, imaging reports and provider reports. Ms. Diallo has RLL pneumonia and bacteremia with Streptococcus pneumoniae. Pt had defervesced earlier in her hospital course. Her Tmax has been 99.7 F in the last 24h. She has not had a true fever. Pt required intubation on 06/25/18 for acute on chronic respiratory failure. Her ABG showed hypercarbia and acidosis. Despite this recent clinical decline, her CXR has shown improvement - most recent CXR 06/26/18 today was read as showing improved aeration of the R lung base. Impression 1. Streptococcus pneumoniae bacteremia and RLL pneumonia 2. acute on chronic respiratory failure; COPD 3. possible pneumococcal meningitis vs toxic/metabolic encephalopathy - Pt has a history of COPD, and CO2 retention can contribute to decreased mental status and need for intubation. However, in the setting of pneumococcal bacteremia, suspicion for bacterial meningitis was also being considered by her prior hospitalist Dr Waldron. Unfortunately she has not had an LP that would be the definitive study for ruling in or out this condition. Several days into antibiotic therapy, the information yielded by an LP might become increasingly confounded by treatment effects. Recommendations - If LP cannot be performed, continuing treatment for pneumococcal meningitis might be reasonable (duration 10-14 days or ending on 06/29-07/03). - Ampicillin should be discontinued. In a patient with pneumococcal bacteremia, pneumococcus would be suspected as a cause of meningitis rather than Listeria. 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 If Pharmacy is able to monitor renal function and renally dose adjust Penicillin G, switching from Rocephin to Penicillin G continuous infusion should be just as effective as Rocephin (based on the ANTON of her isolate) but narrower spectrum and safer from the standpoint of her C difficile colonization. Pharmacy would need to be contacted to enter the order for a continuous Penicillin G infusion. Consider switch if feasible. - Given the need for concurrent antibiotics and how ill the patient is, continuing prophylactic PO vancomycin for C difficile is also reasonable for now. Bassam Garcia MD [facility] Infectious Diseases pager [phone]
[2018-06-26 19:13] LABS: OSMOLALITY,URINE 163 mOsm/kg (300-900)
[2018-06-26 19:26] LABS: URINE SODIUM 6 mmol/L (30-90)
[2018-06-27] MEDS: CEFTRIAXONE SODIUM 2,000 MG in DEXTROSE 5%-WATER 100 ML IV SCH (00:04)
[2018-06-27] MEDS: METHYLPREDNISOLONE INJ 125 MG/2 ML SDV IV SCH ×4 (00:05→21:59)
[2018-06-27] MEDS: FLUTICASONE NASAL SPRAY 50 MCG/SPRY 120 SPRAY/16 GM NASL SCH ×3 (00:05→22:01)
[2018-06-27] MEDS: FAMOTIDINE 20 MG TABLET PO SCH ×3 (00:05→22:01)
[2018-06-27] MEDS: LEVALBUTEROL HCL NEB 1.25 MG/3 ML AMPUL NEB SCH ×4 (01:59→20:18)
[2018-06-27] MEDS: IPRATROPIUM BROMIDE 0.02% NEB 0.5 MG/2.5 ML AMPUL NEB SCH ×4 (01:59→20:18)
[2018-06-27] MEDS: VANCOMYCIN HCL INJ 500 MG VIAL PO SCH ×4 (03:15→22:02)
[2018-06-27] MEDS: MIDAZOLAM HCL 50 MG/100 ML RTUINJ IV PRN ×2 (06:03→22:57)
[2018-06-27] MEDS: POTASSI CL 40 MEQ/NS 1L 1,000 ML IV PRN (06:05)
[2018-06-27] MEDS: LEVOTHYROXINE SODIUM 0.088 MG TABLET PO SCH (06:06)
[2018-06-27 06:53] LABS: ARTERIAL BLOOD BASE EXCESS -3.6 mmol/L; ARTERIAL BLOOD H2CO3 1.23 mmol/L (1.05-1.35); ARTERIAL BLOOD HCO3 21.9 mmol/L (20-24); ARTERIAL BLOOD O2 SATURATION 95.6 % (94-98); ARTERIAL BLOOD PCO2 40.9 mmHg (35-45); ARTERIAL BLOOD PH 7.35 (7.35-7.45); ARTERIAL BLOOD PO2 82.3 mmHg (80-100); ARTERIAL BLOOD TOTAL CO2 23.1 mmol/L (21-25)
[2018-06-27 07:15] LABS: ARTERIAL BLOOD FIO2 30%
[2018-06-27] MEDS ORDERED: GLUCAGON,HUMAN RECOMB 1 MG INJ IM PRN (07:48)
[2018-06-27] MEDS ORDERED: DEXTROSE 50%-WATER 25 GM/50 ML DISP.SYRIN IV PRN ×2 (07:48)
[2018-06-27] MEDS ORDERED: DEXTROSE 40% GEL 15 GM TUBE PO PRN ×2 (07:48)
[2018-06-27] MEDS: DEXTROSE 5%-WATER 250 ML with NOREPINEPHRINE BITARTRATE 4 MG IV PRN ×4 (08:15→17:51)
--- NOTE | 2018-06-27 08:30 | EEG PRO FEE REPORT ---
EEG INTERPRETATION PAT[facility] NAME: [id number] ROOM#: 609 ORDER#: [id number] DATE OF STUDY: 06/26/2018 : 1945 REFERRING MD: ERIC SINGH M.D. MEDICATIONS: Atrovent, Xopenex, Levophed, Famotidine, Fentanyl, Dextrose, Ceftriaxone, Ampicillin, Norepinephrine History This is a 72 year old woman with a history of congestive heart failure, chronic respiratory failure, lung cancer with brain metastases, chronic back pain, TIA, DE, hypertension, dementia, COPD, type II diabetes, depression, asthma, emphysema, bronchitis; who is currently on life support and her nurse noted that the patient began shaking when stimulated either off or on sedation. The patient is currently sedated. This EEG was requested for possible seizures. EEG Interpretation This EEG was recorded in the comatose state with the patient intubated. The background consisted of mostly delta and theta activity. It was disorganized and discontinuous with periods of suppression. There was no noted reactivity to passive eye opening and closing. Photic stimulation resulted in no significant changes. The EKG showed an irregular rhythm. There were moderately frequent sharply contoured wave forms on the left in the central, parietal, and temporal regions, rarely on the right {mostly [id number]}. These wave forms were not periodic and did not evolve. The patient was stimulated with physical touch during the recording which resulted in what appeared to be tonic posturing {visibility was limited due the patient being covered}. The EEG showed diffuse muscle artifact during these stiffening episodes. There were no apparent epileptiform discharges in the midst of this muscle artifact. These episodes of tonic posturing did not occur without physical stimulation during the recording. EEG Classification 1. Disorganization 2. Generalized background slowing 3. Discontinuity 4. Sharply contoured wave forms, left>>right hemisphere EEG Impression This EEG is abnormal. The generalized background slowing and disorganization are consistent with diffuse cerebral dysfunction, however the patient was on sedative medications which affects interpretation. The sharply contoured wave forms did not evolve and were not periodic. There were no definite epileptiform abnormalities noted. The episodes of tonic stiffening with stimulation did not appear to be epileptiform. The EKG showed an irregular rhythm. INTERPRETING PHYSICIAN: GEORGIA GUILLEN M.D. /: NICHOLAS TT: [id number] ID: [id number] /: [id number] TD: 2007 JOB: [id number] cc:Mague PEREZ M.D. ALBERT CURSEEN, M.D. > MTDD
[2018-06-27 08:39] LABS: INTERNATIONAL RATION (INR) 1.02; PROTHROMBIN TIME 13.9 SEC (11.4-15.4)
--- NOTE | 2018-06-27 08:40 | PDOC PROGRESS REPORT ---
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 CT scan of the chest shows right -sided infiltrate with an elevated WBC and she was started on empiric antibiotic therapy. Later on she was transferred to ICU for possible sepsis and pneumonia. She was on pressors and broad-spectrum antibiotics she is off the pressors right now. Further recommendations of the ID cassandra consultant Dr. Moody Bactrim IV vancomycin and IV levofloxacin was discontinued, presently patient is on IV ceftriaxone p.o. vancomycin and also on ampicillin. Patient is running low-grade fever. She was presently intubated. She is hypotensive at this time blood pressure is 75/45 not on pressors getting IV fluids normal saline at 75 cc/h 06/27/2018 patient is still intubated on 30% oxygen pulse ox is around 97-98% patient is alert try to respond to verbal commands no acute events over the last 24 hours. Reason For Visit: SEPSIS DIABETES, COPD EXACERBATION PNEUMONIA Physical Exam Vital Signs: Temp Pulse Resp BP Pulse Ox 97.2 F 94 14 119/51 L 99 06/27/18 07:00 06/27/18 04:00 06/27/18 07:00 06/27/18 06:54 06/27/18 07:00 Intake & Output 06/26/18 06/27/18 06/28/18 06:59 06:59 06:59 Intake Total 3341.250 1717 Output Total 815 1785 Balance 2526.250 -68 Weight 86.1 kg 86.1 kg General appearance: PRESENT: no acute distress Head exam: PRESENT: atraumatic Eye exam: PRESENT: PERRLA Mouth exam: PRESENT: moist Neck exam: ABSENT: carotid bruit, JVD, lymphadenopathy, thyromegaly Respiratory exam: PRESENT: other - Patient is still intubated on SIMV tidal volume 450 PEEP of 5 respiratory rate of 14 and pulse ox is 98%. She is on 30% oxygen.. ABSENT: crackles, rhonchi, wheezes Cardiovascular exam: PRESENT: RRR. ABSENT: diastolic murmur, rubs, systolic murmur GI/Abdominal exam: PRESENT: normal bowel sounds, soft. ABSENT: tenderness Neurological exam: PRESENT: alert, awake Psychiatric exam: PRESENT: appropriate affect, normal mood. ABSENT: homicidal ideation, suicidal ideation Results Laboratory Results: 06/26/18 04:20 06/26/18 14:25 06/26/18 06/26/18 06/26/18 08:30 10:10 10:10 Carbonic Acid 1.24 HCO3/H2CO3 Ratio 15:1 ABG pH 7.30 L ABG pCO2 41.3 ABG pO2 76.6 L ABG HCO3 19.8 L ABG O2 Saturation 94.0 ABG Base Excess -6.2 FiO2 30% Sodium 126.0 L Potassium 3.5 L Chloride 93 L Carbon Dioxide 22 Anion Gap 11 BUN 25 H Creatinine 1.57 H Est GFR ( Amer) 39 L Est GFR (Non-Af Amer) 32 L Glucose 122 H Serum Osmolality 264 L Calcium 7.0 L* Albumin Urine Osmolality 06/26/18 06/26/18 06/26/18 10:10 14:25 18:40 Carbonic Acid HCO3/H2CO3 Ratio ABG pH ABG pCO2 ABG pO2 ABG HCO3 ABG O2 Saturation ABG Base Excess FiO2 Sodium 126.7 L Potassium 4.1 Chloride 94 L Carbon Dioxide 21 L Anion Gap 12 BUN 23 H Creatinine 1.62 H Est GFR ( Amer) 38 L Est GFR (Non-Af Amer) 31 L Glucose 137 H Serum Osmolality Calcium 7.3 L Albumin 2.2 L Urine Osmolality 163 L 06/27/18 05:50 Carbonic Acid 1.23 HCO3/H2CO3 Ratio 17:1 ABG pH 7.35 ABG pCO2 40.9 ABG pO2 82.3 ABG HCO3 21.9 ABG O2 Saturation 95.6 ABG Base Excess -3.6 FiO2 30% Sodium Potassium Chloride Carbon Dioxide Anion Gap BUN Creatinine Est GFR ( Amer) Est GFR (Non-Af Amer) Glucose Serum Osmolality Calcium Albumin Urine Osmolality 06/21/18 18:23 Blood Blood Culture - Final NO GROWTH IN 5 DAYS 06/21/18 17:40 Blood Blood Culture - Final NO GROWTH IN 5 DAYS 06/21/18 14:00 Sputum Gram Stain - Final 06/21/18 14:00 Sputum Sputum Culture - Final Streptococcus Pneumoniae Mrsa (Meth Resis Staph Aureus) Reduced Normal Jayshree 06/26/18 10:10 NT-Pro-B Natriuret Pep 07266 H Impressions: Abdomen/Pelvis CT 06/20/18 22:27 IMPRESSION: New focal area of parenchymal consolidation within the posterior aspect of the right lower lung, image 33 which could be secondary to an acute infectious process/area of pneumonitis. Postobstructive atelectasis/pneumonitis is a consideration. Small right pleural fluid collection, decreased when compared with the prior exam. Partially visualized air within the soft tissues of the upper extremities could be secondary to recent instrumentation. Please correlate. No acute intra-abdominal abnormality. Chest CT 06/20/18 22:27 IMPRESSION: New focal area of parenchymal consolidation within the posterior aspect of the right lower lung, image 33 which could be secondary to an acute infectious process/area of pneumonitis. Postobstructive atelectasis/pneumonitis is a consideration. Small right pleural fluid collection, decreased when compared with the prior exam. Partially visualized air within the soft tissues of the upper extremities could be secondary to recent instrumentation. Please correlate. No acute intra-abdominal abnormality. Head CT 06/23/18 00:00 IMPRESSION: No acute intracranial findings. Head MRI 06/24/18 13:39 IMPRESSION: ATROPHY AND CHRONIC MICRO-VASCULAR ISCHEMIC CHANGES. OTHERWISE NORMAL MRI OF THE BRAIN WITHOUT INTRAVENOUS GADOLINIUM CONTRAST. EVIDENCE OF ACUTE STROKE: NO. Chest X-Ray 06/26/18 19:00 IMPRESSION: Improved aeration of the right lung base. Other findings are grossly stable 2010 [employer]- All Rights Reserved Assessment & Plan - Diagnosis (1) Acute respiratory failure with hypoxia and hypercapnia Is this a current diagnosis for this admission?: Yes Plan: 06/26/2018 acute respiratory failure with hypoxia status post intubation, right lower infiltration in the chest x-ray is improving. Blood cultures are negative. Check pulmonology for consultation. Latest ABG today pH is 7.3 piece CO2 41 PO2 76% bicarb is 20 this is is done while the patient is intubated. I am planning to change the sedation from propofol to Versed today because of the low blood pressures. 06/27/2018-patient was seen by the laundry aid Dr. Alvarez. Patient pulse oxes are much better compared to yesterday. And is now on 30% oxygen. On SIMV with tidal volume of 450 respiratory rate 14 PEEP of 5. Weaning process was started from yesterday. Her sedation she is on propofol. Continue to follow the laundry aid recommendations. ABG today improved compared to yesterday pH is 7.35 PCO2 41 PO2 82.3 bicarb is 22. (2) Altered mental status Qualifiers: Altered mental status type: delirium Qualified Code(s): R41.0 - Disorientation, unspecified Is this a current diagnosis for this admission?: Yes Plan: 06/27/2018 patient is going for LP today. Altered mental status may be secondary to metabolic causes versus infectious causes. Patient right now on ceftriaxone. And also on the p.o. vancomycin and sent for C. difficile. Patient is off the DVT prophylaxis for possible LP around 10:00 today. In my opinion her mental status is improving. (3) Pneumococcal bacteremia Is this a current diagnosis for this admission?: Yes Plan: 06/26/2018-patient is presently on IV ceftriaxone and ampicillin. Latest blood cultures are negative. The blood cultures from 06/21/2018 indicates MRSA with strep pneumonia. Following the ID recommendations. The MRI of the brain rule out any acute changes. Patient is still having the low-grade. fever. The plan is to continue the present antibiotic therapy and follow the further recommendations from Dr. Garcia. We are planning to do the daily follow-up chest x-rays. 06/27/2018. It is on IV ceftriaxone. As per the ID recommendations, ampicillin was discontinued. His blood cultures are negative. She is afebrile. Chest x-ray report from yesterday indicating improvement in right lower base aeration. It is presently on IV ceftriaxone. (4) Septic shock Is this a current diagnosis for this admission?: Yes Plan: 06/26/2018-blood cultures from 1120 2017+ for strep pneumonia sputum cultures from 1121 2017+ for MRSA and the latest blood cultures are negative. Patient is presently on ampicillin 2 grams IV every 4 hours and also on ceftriaxone 2 g IV daily. Patient is hypotensive this morning blood pressure 75/45 and IV fluids normal saline running at 75 cc/h I requested the nurse to give to 50 cc bolus of normal saline and also put the order for Levophed to titrate to improve the blood pressures doing the gentle hydration because of the patient's underlying history of congestive heart failure. 06/27/2018-is afebrile. Patient is presently on IV normal saline 50 cc/h on she is on Levophed. Pressure is 122/80. I discontinued IV fluids from today. (5) Hyponatremia Is this a current diagnosis for this admission?: Yes Plan: 06/26/2018 patient's sodium level is 124.7 today, on admission his it is around 141 there is a gradual and significant drop of sodiums in the last 1248 hrs. did drop his sodium despite the patient is getting normal saline at 75 cc/h. The urinary output in the last 24 hours is 800 cc and input is to around 2.4 L. Because of the significant drop in sodium and requesting a nephrology consult. Patient's creatinine is 1.56 stable. We are going to continue to closely monitor the sodium levels. 06/27/2018 latest sodium levels is 126.7 nephrology was consulted waiting for urinary sodium and urine sodium osmolality. His latest creatinine is 1.62. Going to start her on tube feeding from today. We will continue to follow the nephrology recommendations. (6) C. difficile colitis Is this a current diagnosis for this admission?: Yes Plan: 06/26/2018-cultures were positive for C. difficile and on p.o. vancomycin and contact precautions. We will continue the p.o. vancomycin. 06/27/2018 today's plan is to continue p.o. vancomycin for C. difficile. She is on contact precautions. (7) CHF (congestive heart failure) Qualifiers: Heart failure type: diastolic Heart failure chronicity: acute on chronic Qualified Code(s): I50.33 - Acute on chronic diastolic (congestive) heart failure Is this a current diagnosis for this admission?: Yes Plan: 06/26/2018 patient has history of congestive heart failure and despite being the low blood pressures. Given the gentle hydration to prevent any fluid overload. If necessary we can to start her on pressors. I am going to request for the echocardiogram. 06/27/2018 has history of CHF due to concerns about volume overload we are giving her gentle hydration due to the fact that blood pressures are better we plan to discontinue IV fluids today. Echocardiogram was done yesterday EF is 65 %. Is a grade 1 / 4 mild diastolic dysfunction. Patient is not in fluid overload. Chest was clear. (8) Hypokalemia Is this a current diagnosis for this admission?: Yes Plan: 06/27/2018 proclaim is resolved latest potassium level is 4.1. Today's labs are pending. (9) Hypokalemia Is this a current diagnosis for this admission?: Yes (10) Diabetes mellitus type 2 in obese Is this a current diagnosis for this admission?: Yes Plan: 06/26/2018-patient's blood sugars are running low latest blood sugar is around 80. She is n.p.o. and intubated. Patient is to be on metformin at home it was on hold during this hospital stay. 06/27/2018 patient is n.p.o. for the last 3 days we are going to start her on her tube feedings today and we are going to start her on regular insulin sliding scale every 6 hours. Latest blood sugar is 137. (11) COPD exacerbation Is this a current diagnosis for this admission?: Yes Plan: 06/26/2018-patient is admitted for fever and pneumonia status post intubation. Culture positive for strep pneumonia. It is on ceftriaxone and ampicillin. 06/27/2018 patient is still intubated no wheezing no crepitations on examination. There is a possibility of extubation in the next 24-48 hours. She is presently on a ceftriaxone. Chest x-ray shows improved aeration in the right lung base. (12) Hypomagnesemia Is this a current diagnosis for this admission?: Yes Plan: 06/26/2018 latest magnesium level is 1.5 planning to give her magnesium supplementation 2 g IV 1 dose. 06/27/2018 and received 2 g of IV magnesium yesterday. Today's magnesium levels are pending. (13) Encephalopathy Is this a current diagnosis for this admission?: Yes Plan: 06/26/2018-the cause for her altered mental status/and can follow-up with may be secondary to either infectious process metabolic causes latest sodium is 124. MRI of the brain was done no acute changes. 06/27/2018 she is going for LP today. MRI of the brain was done during this hospital stay with no acute changes. Patient is on IV ceftriaxone. (14) Anemia Qualifiers: Anemia type: unspecified type Qualified Code(s): D64.9 - Anemia, unspecified Is this a current diagnosis for this admission?: Yes Plan: 06/26/2018 patient has history of chronic anemia. Her hemoglobin is stable around 8.1. 06/27/2018 patient's hemoglobin is status between 8.1-8.3. (15) GERD (gastroesophageal reflux disease) Qualifiers: Esophagitis presence: esophagitis presence not specified Qualified Code(s) : K21.9 - Gastro-esophageal reflux disease without esophagitis Is this a current diagnosis for this admission?: Yes Plan: 06/26/2018 plan for today is to continue PPIs. 06/27/2018 for GI prophylaxis with planning to continue PPIs. (16) Hypocalcemia Is this a current diagnosis for this admission?: Yes Plan: 06/27/2018 serum calcium levels are 7.3. Albumin min is 2.2. Calcium is around 8.4 to 8.6. - Time Time Spent with patient: 15-24 minutes Smoking Cessation Education: 3 to 10 minutes Medications reviewed and adjusted accordingly: Yes
[2018-06-27 09:58] LABS: ALANINE AMINOTRANSFERASE 21 U/L (9-52); ALBUMIN 2.4 g/dL (3.5-5.0); ALKALINE PHOSPHATASE 48 U/L (38-126); ANION GAP 13 (5-19); ASPARTATE AMINO TRANSFERASE 14 U/L (14-36); BILIRUBIN,DIRECT 0.2 mg/dL (0.0-0.4); BILIRUBIN,TOTAL 0.2 mg/dL (0.2-1.3); BLOOD UREA NITROGEN 21 mg/dL (7-20); CALCIUM 7.3 mg/dL (8.4-10.2); CARBON DIOXIDE 20 mmol/L (22-30); CHLORIDE 96 mmol/L (98-107); GLUCOSE 164 mg/dL (75-110); POTASSIUM 3.6 mmol/L (3.6-5.0); SODIUM 128.5 mmol/L (137-145); TOTAL PROTEIN 4.7 g/dL (6.3-8.2)
--- NOTE | 2018-06-27 11:17 | RADIOLOGY REPORT (SQ) ---
EXAM DESCRIPTION: LUMBAR PUNCTURE; FLUORO/NEEDLE PLACEMENT/SPINE COMPLETED DATE/TIME: 06/27/2018 10:58 am REASON FOR STUDY: altered mental status; AMS COMPARISON: MRI brain 06/24/2018 CT brain 06/24/2018 FLUOROSCOPY TIME: 13 seconds 3 digital radiographic images images saved to PACS. TECHNIQUE: Fluoroscopic guided lumbar puncture. LIMITATIONS: None. PROCEDURE: After written consent and assessment were obtained, the patient was brought into the fluo roscopy room and placed prone on the table. The patient's lower back was prepped in a sterile fashio n and an entry site was selected under live fluoroscopic guidance. The entry site was anesthetized wi th 1% lidocaine. A 22 gauge needle was advanced through the skin and into the thecal sac at the right paracentral L1-2 level. After approximately 17.5 ml was drained, the needle was removed and a steri le bandage was placed of the site. Specimens were sent to the lab for testing. A fluoroscopic spot image was saved to PACS confirming level access. FINDINGS: Clear CSF, opening pressure 27 cm of water. Closing pressure 15 cm of water IMPRESSION: Lumbar puncture under fluoroscopy. No immediate complication. COMMENT: Patient medication list reviewed: Yes- Quality ID# [id number]:Eligible professional attests to doc umenting in the medical record they obtained, updated, or reviewed the patient's current medications. . Quality ID 145: Final reports for procedures using fluoroscopy that document radiation exposure ricardo diane, or exposure time and number of fluorographic images (if radiation exposure indices are not avail able) TECHNICAL DOCUMENTATION: JOB ID: [id number] [employer]- All Rights Reserved Reading location - IP/workstation name: [email or web address]
--- NOTE | 2018-06-27 11:17 | RADIOLOGY REPORT (SQ) ---
EXAM DESCRIPTION: LUMBAR PUNCTURE; FLUORO/NEEDLE PLACEMENT/SPINE COMPLETED DATE/TIME: 06/27/2018 10:58 am REASON FOR STUDY: altered mental status; AMS COMPARISON: MRI brain 06/24/2018 CT brain 06/24/2018 FLUOROSCOPY TIME: 13 seconds 3 digital radiographic images images saved to PACS. TECHNIQUE: Fluoroscopic guided lumbar puncture. LIMITATIONS: None. PROCEDURE: After written consent and assessment were obtained, the patient was brought into the fluo roscopy room and placed prone on the table. The patient's lower back was prepped in a sterile fashio n and an entry site was selected under live fluoroscopic guidance. The entry site was anesthetized wi th 1% lidocaine. A 22 gauge needle was advanced through the skin and into the thecal sac at the right paracentral L1-2 level. After approximately 17.5 ml was drained, the needle was removed and a steri le bandage was placed of the site. Specimens were sent to the lab for testing. A fluoroscopic spot image was saved to PACS confirming level access. FINDINGS: Clear CSF, opening pressure 27 cm of water. Closing pressure 15 cm of water IMPRESSION: Lumbar puncture under fluoroscopy. No immediate complication. COMMENT: Patient medication list reviewed: Yes- Quality ID# [id number]:Eligible professional attests to doc umenting in the medical record they obtained, updated, or reviewed the patient's current medications. . Quality ID 145: Final reports for procedures using fluoroscopy that document radiation exposure ricardo diane, or exposure time and number of fluorographic images (if radiation exposure indices are not avail able) TECHNICAL DOCUMENTATION: JOB ID: [id number] [employer]- All Rights Reserved Reading location - IP/workstation name: [email or web address]-[email or web address]
[2018-06-27] MEDS ORDERED: BISACODYL 10 MG SUPP.RECT PR ONE (12:00)
[2018-06-27 12:34] LABS: APPEARANCE ALL TUBES CLEAR; COLOR ALL TUBES COLORLESS; CSF TUBE NUMBER 3
[2018-06-27 12:35] LABS: RED BLOOD CELL,CSF 0 /uL (0-10); WHITE BLOOD CELL,CSF 0 /uL (0-5)
[2018-06-27 12:47] LABS: GLUCOSE,CSF 118 mg/dL (40-70); PROTEIN,CSF 123 mg/dL (12-60)
[2018-06-27] MEDS: TIOTROPIUM BROMIDE DPI 5 CAP/KIT (18 MCG/CAP) IH SCH (13:05)
[2018-06-27] MEDS: LACTULOSE SYRUP 20 GM/30 ML UDCUP PO SCH (13:22)
[2018-06-27] MEDS: FUROSEMIDE INJ/PF 20 MG/2 ML SDV IV SCH ×2 (13:22→22:00)
--- NOTE | 2018-06-27 13:49 | PDOC PROGRESS REPORT ---
Subjective Progress Note for:: 06/27/18 Subjective:: Intubated and sedated Reason For Visit: SEPSIS DIABETES, COPD EXACERBATION PNEUMONIA Physical Exam Vital Signs: Temp Pulse Resp BP Pulse Ox 97.2 F 98 16 119/51 L 99 06/27/18 07:00 06/27/18 08:40 06/27/18 08:40 06/27/18 06:54 06/27/18 08:40 Intake & Output 06/26/18 06/27/18 06/28/18 06:59 06:59 06:59 Intake Total 3341.250 1717 261 Output Total 815 1785 Balance 2526.250 -68 261 Weight 86.1 kg 86.1 kg General appearance: PRESENT: no acute distress, disheveled, obese. ABSENT: cooperative Head exam: PRESENT: atraumatic, normocephalic Eye exam: PRESENT: conjunctiva pale. ABSENT: nystagmus, periorbital swelling, scleral icterus Mouth exam: PRESENT: dry mucosa, neck supple, tongue midline, other - ET tube in place Neck exam: ABSENT: carotid bruit, JVD, lymphadenopathy, thyromegaly, tracheostomy Respiratory exam: PRESENT: decreased breath sounds, prolonged expiratory phas, rales, rhonchi, unlabored, wheezes. ABSENT: retraction, stridor, tachypnea Cardiovascular exam: PRESENT: RRR, +S1, +S2 Pulses: PRESENT: normal radial pulses GI/Abdominal exam: PRESENT: soft. ABSENT: tenderness Gentrourinary exam: PRESENT: indwelling catheter Extremities exam: PRESENT: pedal edema. ABSENT: calf tenderness, clubbing, joint swelling Musculoskeletal exam: ABSENT: deformity, dislocation Neurological exam: ABSENT: awake Skin exam: PRESENT: dry, warm Results Laboratory Results: 06/26/18 04:20 06/26/18 14:25 06/26/18 06/26/18 06/26/18 10:10 10:10 10:10 Carbonic Acid HCO3/H2CO3 Ratio ABG pH ABG pCO2 ABG pO2 ABG HCO3 ABG O2 Saturation ABG Base Excess FiO2 Sodium 126.0 L Potassium 3.5 L Chloride 93 L Carbon Dioxide 22 Anion Gap 11 BUN 25 H Creatinine 1.57 H Est GFR ( Amer) 39 L Est GFR (Non-Af Amer) 32 L Glucose 122 H Serum Osmolality 264 L Calcium 7.0 L* Albumin 2.2 L Urine Osmolality 06/26/18 06/26/18 06/27/18 14:25 18:40 05:50 Carbonic Acid 1.23 HCO3/H2CO3 Ratio 17:1 ABG pH 7.35 ABG pCO2 40.9 ABG pO2 82.3 ABG HCO3 21.9 ABG O2 Saturation 95.6 ABG Base Excess -3.6 FiO2 30% Sodium 126.7 L Potassium 4.1 Chloride 94 L Carbon Dioxide 21 L Anion Gap 12 BUN 23 H Creatinine 1.62 H Est GFR ( Amer) 38 L Est GFR (Non-Af Amer) 31 L Glucose 137 H Serum Osmolality Calcium 7.3 L Albumin Urine Osmolality 163 L 06/21/18 18:23 Blood Blood Culture - Final NO GROWTH IN 5 DAYS 06/21/18 17:40 Blood Blood Culture - Final NO GROWTH IN 5 DAYS 06/21/18 14:00 Sputum Gram Stain - Final 06/21/18 14:00 Sputum Sputum Culture - Final Streptococcus Pneumoniae Mrsa (Meth Resis Staph Aureus) Reduced Normal Jayshree 06/26/18 10:10 NT-Pro-B Natriuret Pep 87674 H Impressions: Abdomen/Pelvis CT 06/20/18 22:27 IMPRESSION: New focal area of parenchymal consolidation within the posterior aspect of the right lower lung, image 33 which could be secondary to an acute infectious process/area of pneumonitis. Postobstructive atelectasis/pneumonitis is a consideration. Small right pleural fluid collection, decreased when compared with the prior exam. Partially visualized air within the soft tissues of the upper extremities could be secondary to recent instrumentation. Please correlate. No acute intra-abdominal abnormality. Chest CT 06/20/18 22:27 IMPRESSION: New focal area of parenchymal consolidation within the posterior aspect of the right lower lung, image 33 which could be secondary to an acute infectious process/area of pneumonitis. Postobstructive atelectasis/pneumonitis is a consideration. Small right pleural fluid collection, decreased when compared with the prior exam. Partially visualized air within the soft tissues of the upper extremities could be secondary to recent instrumentation. Please correlate. No acute intra-abdominal abnormality. Head CT 06/23/18 00:00 IMPRESSION: No acute intracranial findings. Head MRI 06/24/18 13:39 IMPRESSION: ATROPHY AND CHRONIC MICRO-VASCULAR ISCHEMIC CHANGES. OTHERWISE NORMAL MRI OF THE BRAIN WITHOUT INTRAVENOUS GADOLINIUM CONTRAST. EVIDENCE OF ACUTE STROKE: NO. Chest X-Ray 06/26/18 19:00 IMPRESSION: Improved aeration of the right lung base. Other findings are grossly stable 2010 [employer]- All Rights Reserved Assessment & Plan - Diagnosis (1) Acute respiratory failure with hypoxia and hypercapnia Is this a current diagnosis for this admission?: Yes Plan: PH normal normal PCO2 with mechanical ventilation (2) Altered mental status Qualifiers: Altered mental status type: delirium Qualified Code(s): R41.0 - Disorientation, unspecified Is this a current diagnosis for this admission?: Yes Plan: Unchanged EEG showed diffuse abnormalities but no seizure activity (3) Septic shock Is this a current diagnosis for this admission?: Yes (4) COPD (chronic obstructive pulmonary disease) Qualifiers: COPD type: unspecified COPD Qualified Code(s): J44.9 - Chronic obstructive pulmonary disease, unspecified Is this a current diagnosis for this admission?: Yes Plan: Still using vasopressor agents continue current bronchodilator therapy - Time Total Critical Time (Minutes): 45 - Plan Summary Plan Summary: Patient has not yet had a bowel movement would like to start enteral feeds will Strine stimulated with Dulcolax suppository and/or an enema as needed
--- NOTE | 2018-06-27 15:15 | RADIOLOGY REPORT (SQ) ---
EXAM DESCRIPTION: CHEST SINGLE VIEW COMPLETED DATE/TIME: 06/27/2018 2:59 pm REASON FOR STUDY: Intubated COMPARISON: Multiple chest films since 06/20/2018, most recently 06/26/2018 EXAM PARAMETERS: NUMBER OF VIEWS: One view. TECHNIQUE: Single frontal radiographic view of the chest acquired. RADIATION DOSE: NA LIMITATIONS: None. FINDINGS: LUNGS AND PLEURA: Chronic right perihilar scarring and volume loss. No acute infiltrates. No pleural effusion or pneumothorax. MEDIASTINUM AND HILAR STRUCTURES: No masses. Contour normal. HEART AND VASCULAR STRUCTURES: Heart normal in size. Normal vasculature. BONES: No acute findings. HARDWARE: Endotracheal tube tip 3 to 4 cm above the masood. Right jugular central line tip superior vena cava. Nasogastric tube tip at the GE junction, side port in the esophagus OTHER: No other significant finding. IMPRESSION: Endotracheal tube in good positioning. Nasogastric tube tip at the GE junction, side port in the mid 3rd esophagus Right jugular central line tip superior vena cava. No pneumothorax No change in right perihilar chronic bandlike scarring and consolidation TECHNICAL DOCUMENTATION: JOB ID: [id number] [employer]- All Rights Reserved Reading location - IP/workstation name: [email or web address]
--- NOTE | 2018-06-27 18:25 | Progress Note ---
Provider Note Provider Note: ID Consult - Follow Up Note Reviewed patient's chart, including VS, imaging reports, providre reports, microbiology results and other pertinent labs. Pt not seen or examined. Discussed case briefly with Dr Jo via telephone. Pt had LP today. CSF is clear, colorless and shows 0 WBCs. CSF glucose is not low. Protein in CSF is 123, but this is nonspecific. Even though LP was performed many days into treatment, the absolute lack of any CSF pleocytosis in this patient against pneumococcal meningitis. Pt also has an alternative etiology for her worsened mental status - CO2 retention. Based on review of chart and discussion with Dr Waldron, pt appeared to have C difficile colonization (PCR positive C difficile stool and clinical features inconsistent with Clostridium difficile diarrhea). However, PO vancomycin was continued prophylactically while pt was on Rocephin due to how sick pt was, risk for developing true C difficle infection, and some uncertainty in her clinical picture. She is not having diarrhea. In fact, she is now getting laxatives. Her leukocytosis has resolved. Impression/Recommendations 1. Sepsis due to pneumococcal bacteremia and lobar pneumonia - She has completed an adequate course of therapy for pneumococcal bacteremia secondary to pneumonia. - In absence of meningitis, she does not require further treatment with IV Rocephin. - Recommend discontinuing Rocephin. 2. C difficile colonization - Now that Rocephin is discontinued, I would stop PO vancomycin in a day or two. - If patient subsequently develops diarrhea, it needs to be interpreted in context. Pt is getting laxatives right now, and diarrhea is an expected effect. As long as pt is not worsening clinically (fever, leukocytosis, abdominal pain to suggest actual C difficile diarrhea), she should not need PO vancomycin. Bassam Garcia MD [facility] Infectious Diseases pager [phone]
--- NOTE | 2018-06-27 21:28 | PDOC PROGRESS REPORT ---
Subjective Progress Note for:: 06/27/18 Subjective:: Patient is currently intubated and sedated. At the time was still on pressors, but was off NS due to signs of fluid overload. She is currently on lasix and has produced over 2L of urine today. Reason For Visit: SEPSIS DIABETES, COPD EXACERBATION PNEUMONIA Physical Exam Vital Signs: Temp Pulse Resp BP Pulse Ox 98.1 F 92 14 113/61 99 06/27/18 19:28 06/27/18 20:20 06/27/18 20:20 06/27/18 18:09 06/27/18 20:20 Intake & Output 06/26/18 06/27/18 06/28/18 06:59 06:59 06:59 Intake Total 3341.250 1717 525 Output Total 815 1785 2075 Balance 2526. Weight 86.1 kg 86.1 kg General appearance: PRESENT: no acute distress, well-developed, well-nourished Eye exam: PRESENT: PERRLA. ABSENT: scleral icterus Mouth exam: PRESENT: moist, neck supple Neck exam: ABSENT: JVD, tracheal deviation Respiratory exam: PRESENT: crackles, rales. ABSENT: clear to auscultation jeff, wheezes Cardiovascular exam: PRESENT: +S1, +S2 GI/Abdominal exam: PRESENT: soft. ABSENT: ascites, distended, tenderness Extremities exam: PRESENT: +1 edema. ABSENT: +2 edema Musculoskeletal exam: ABSENT: deformity, normal inspection Neurological exam: PRESENT: other - -intubated and sedated. ABSENT: alert, awake Skin exam: PRESENT: dry, intact, warm Results Laboratory Results: 06/26/18 04:20 06/27/18 03:30 06/27/18 06/27/18 06/27/18 03:30 05:50 10:37 Carbonic Acid 1.23 HCO3/H2CO3 Ratio 17:1 ABG pH 7.35 ABG pCO2 40.9 ABG pO2 82.3 ABG HCO3 21.9 ABG O2 Saturation 95.6 ABG Base Excess -3.6 FiO2 30% Sodium 128.5 L Potassium 3.6 Chloride 96 L Carbon Dioxide 20 L Anion Gap 13 BUN 21 H Creatinine 1.61 H Est GFR ( Amer) 38 L Est GFR (Non-Af Amer) 31 L Glucose 164 H Calcium 7.3 L Magnesium 2.2 Total Bilirubin 0.2 AST 14 ALT 21 Alkaline Phosphatase 48 Total Protein 4.7 L Albumin 2.4 L Fluid Tube Number 3 CSF Volume 17.0 CSF Appearance CLEAR CSF Color COLORLESS CSF WBC 0 CSF RBC 0 CSF Glucose CSF Total Protein 06/27/18 10:37 Carbonic Acid HCO3/H2CO3 Ratio ABG pH ABG pCO2 ABG pO2 ABG HCO3 ABG O2 Saturation ABG Base Excess FiO2 Sodium Potassium Chloride Carbon Dioxide Anion Gap BUN Creatinine Est GFR ( Amer) Est GFR (Non-Af Amer) Glucose Calcium Magnesium Total Bilirubin AST ALT Alkaline Phosphatase Total Protein Albumin Fluid Tube Number CSF Volume CSF Appearance CSF Color CSF WBC CSF RBC CSF Glucose 118 H CSF Total Protein 123 H 06/21/18 18:23 Blood Blood Culture - Final NO GROWTH IN 5 DAYS 06/21/18 17:40 Blood Blood Culture - Final NO GROWTH IN 5 DAYS 06/26/18 10:10 NT-Pro-B Natriuret Pep [id number] H Impressions: Abdomen/Pelvis CT 06/20/18 22:27 IMPRESSION: New focal area of parenchymal consolidation within the posterior aspect of the right lower lung, image 33 which could be secondary to an acute infectious process/area of pneumonitis. Postobstructive atelectasis/pneumonitis is a consideration. Small right pleural fluid collection, decreased when compared with the prior exam. Partially visualized air within the soft tissues of the upper extremities could be secondary to recent instrumentation. Please correlate. No acute intra-abdominal abnormality. Chest CT 06/20/18 22:27 IMPRESSION: New focal area of parenchymal consolidation within the posterior aspect of the right lower lung, image 33 which could be secondary to an acute infectious process/area of pneumonitis. Postobstructive atelectasis/pneumonitis is a consideration. Small right pleural fluid collection, decreased when compared with the prior exam. Partially visualized air within the soft tissues of the upper extremities could be secondary to recent instrumentation. Please correlate. No acute intra-abdominal abnormality. Head CT 06/23/18 00:00 IMPRESSION: No acute intracranial findings. Head MRI 06/24/18 13:39 IMPRESSION: ATROPHY AND CHRONIC MICRO-VASCULAR ISCHEMIC CHANGES. OTHERWISE NORMAL MRI OF THE BRAIN WITHOUT INTRAVENOUS GADOLINIUM CONTRAST. EVIDENCE OF ACUTE STROKE: NO. Chest X-Ray 06/27/18 00:00 IMPRESSION: Endotracheal tube in good positioning. Nasogastric tube tip at the GE junction, side port in the mid 3rd esophagus Right jugular central line tip superior vena cava. No pneumothorax No change in right perihilar chronic bandlike scarring and consolidation Guidance Fluoroscopy 06/27/18 00:00 IMPRESSION: Lumbar puncture under fluoroscopy. No immediate complication. Lumbar Puncture 06/27/18 00:00 IMPRESSION: Lumbar puncture under fluoroscopy. No immediate complication. Assessment & Plan - Diagnosis (1) Hyponatremia Is this a current diagnosis for this admission?: Yes Plan: labs showed that hyonatremia was due to fluid overload. Recommend continuing on diuretics. Do recommend caution due to the fact that if kidney start to enter diuresis phase of healing she will produce several liters of urine. At that time diuretics may need to be stopped to prevent dehydration. (2) MARY LOU (acute kidney injury) Plan: currently stable, significant urine production increase while on diuretics. Diuretics may need to be decreased or stopped if urine production gets too high. (3) Septic shock Is this a current diagnosis for this admission?: Yes Plan: improving off all IV antibiotics, on PO vanc for c-diff (4) Acute respiratory failure with hypoxia and hypercapnia Is this a current diagnosis for this admission?: Yes Plan: intubated and sedated (5) Hypokalemia Is this a current diagnosis for this admission?: Yes Plan: currently stable, will need to reassess tomorrow with how much urine the patient is putting out. (6) Pneumonia Qualifiers: Pneumonia type: due to unspecified organism Laterality: right Lung location: unspecified part of lung Qualified Code(s): J18.9 - Pneumonia, unspecified organism Is this a current diagnosis for this admission?: Yes Plan: off antibiotics
[2018-06-27] MEDS: SERTRALINE HCL 50 MG TABLET PO SCH (22:01)
--- NOTE | 2018-06-27 22:02 | RADIOLOGY REPORT (SQ) ---
EXAM DESCRIPTION: XR ABDOMEN 1 VIEW (KUB) COMPLETED DATE/TME: 06/27/2018 00:00 CLINICAL HISTORY: 72 years, Female, confirm OG placement COMPARISON: None. NUMBER OF VIEWS: 1 TECHNIQUE: AP abdomen LIMITATIONS: None. FINDINGS: Evaluation for free air limited on a supine view. Enteric tube with the tip in the left upper quadrant, likely in the proximal stomach. The sidehole may be near the GE junction. Mild gaseous distention of colon. Catheter projects over the pelvis. Surgical clips in the right upper quadrant. Surgical clip in the left mid abdomen. Osteopenia. IMPRESSION: Tip of the enteric tube likely in the proximal stomach with the sidehole near the GE junction. Mild gaseous distention of the colon copyright 2010 [employer]- All Rights Reserved
[2018-06-28] MEDS: IPRATROPIUM BROMIDE 0.02% NEB 0.5 MG/2.5 ML AMPUL NEB SCH ×4 (02:26→20:02)
[2018-06-28] MEDS: LEVALBUTEROL HCL NEB 1.25 MG/3 ML AMPUL NEB SCH ×4 (02:26→20:02)
[2018-06-28] MEDS: VANCOMYCIN HCL INJ 500 MG VIAL PO SCH ×4 (03:45→21:08)
[2018-06-28] MEDS: METHYLPREDNISOLONE INJ 125 MG/2 ML SDV IV SCH ×3 (06:16→21:08)
[2018-06-28] MEDS: LEVOTHYROXINE SODIUM 0.112 MG TABLET PO SCH (06:17)
[2018-06-28 06:31] LABS: HEMATOCRIT 22.7 % (36.0-47.0); MEAN CORPUSCULAR HEMOGLOBIN 29.8 pg (27.0-33.4); MEAN CORPUSCULAR VOLUME 88 fl (80-97); PLATELET COUNT 139 10^3/uL (150-450); RED BLOOD COUNT 2.59 10^6/uL (3.72-5.28); RED CELL DISTRIBUTION WIDTH 16.8 % (11.5-14.0); WHITE BLOOD COUNT 4.9 10^3/uL (4.0-10.5)
[2018-06-28 06:37] LABS: ARTERIAL BLOOD BASE EXCESS -0.1 mmol/L; ARTERIAL BLOOD HCO3 23.4 mmol/L (20-24); ARTERIAL BLOOD O2 SATURATION 93.1 % (94-98); ARTERIAL BLOOD PCO2 33.3 mmHg (35-45); ARTERIAL BLOOD PH 7.47 (7.35-7.45); ARTERIAL BLOOD PO2 61.4 mmHg (80-100); ARTERIAL BLOOD TOTAL CO2 24.4 mmol/L (21-25)
[2018-06-28 06:38] LABS: ARTERIAL BLOOD FIO2 21%
[2018-06-28 06:46] LABS: ALANINE AMINOTRANSFERASE 19 U/L (9-52); ALBUMIN 2.2 g/dL (3.5-5.0); ALKALINE PHOSPHATASE 44 U/L (38-126); ANION GAP 10 (5-19); ASPARTATE AMINO TRANSFERASE 10 U/L (14-36); BILIRUBIN,DIRECT 0.2 mg/dL (0.0-0.4); BILIRUBIN,TOTAL 0.2 mg/dL (0.2-1.3); BLOOD UREA NITROGEN 22 mg/dL (7-20); CALCIUM 7.4 mg/dL (8.4-10.2); CARBON DIOXIDE 23 mmol/L (22-30); CHLORIDE 101 mmol/L (98-107); GLUCOSE 200 mg/dL (75-110); POTASSIUM 3.3 mmol/L (3.6-5.0); SODIUM 133.9 mmol/L (137-145); TOTAL PROTEIN 4.3 g/dL (6.3-8.2)
[2018-06-28 07:40] LABS: HEMOGLOBIN 7.7 g/dL (12.0-15.5)
[2018-06-28 07:57] LABS: ABSOLUTE LYMPHOCYTES# (MANUAL) 0.1 10^3/uL (0.5-4.7); ABSOLUTE MONOCYTES # (MANUAL) 0.5 10^3/uL (0.1-1.4); ABSOLUTE NEUTROPHILS# (MANUAL) 4.3 10^3/uL (1.7-8.2); BASOPHILS % (MANUAL) 0 % (0-2); EOSINOPHILS % (MANUAL) 0 % (0-6); LYMPHOCYTES % (MANUAL) 2 % (13-45); METAMYELOCYTES % (MANUAL) 1 % (0); MONOCYTES % (MANUAL) 10 % (3-13); SEGMENTED NEUTROPHILS % (MAN) 87 % (42-78); TOTAL CELLS COUNTED 100
[2018-06-28 07:58] LABS: ANISOCYTOSIS 1+; HYPOCHROMASIA SLIGHT; PLATELET COMMENT ADEQUATE; POLYCHROMASIA SLIGHT; TOXIC GRANULATION SLIGHT
--- NOTE | 2018-06-28 08:14 | RADIOLOGY REPORT (SQ) ---
EXAM DESCRIPTION: CHEST SINGLE VIEW COMPLETED DATE/TIME: 06/28/2018 7:03 am REASON FOR STUDY: Intubated COMPARISON: 06/27/2018. EXAM PARAMETERS: NUMBER OF VIEWS: One view. TECHNIQUE: Single frontal radiographic view of the chest acquired. RADIATION DOSE: NA LIMITATIONS: None. FINDINGS: LUNGS AND PLEURA: Right perihilar density unchanged. Left lung clear. MEDIASTINUM AND HILAR STRUCTURES: No masses. Contour normal. HEART AND VASCULAR STRUCTURES: Heart normal in size. Normal vasculature. BONES: No acute findings. HARDWARE: Stable endotracheal tube, nasogastric tube, and central line. OTHER: No other significant finding. IMPRESSION: NO SIGNIFICANT CHANGE IN APPEARANCE OF THE CHEST. TECHNICAL DOCUMENTATION: JOB ID: [id number] [employer]- All Rights Reserved Reading location - IP/workstation name: [email or web address]
--- NOTE | 2018-06-28 08:18 | PDOC PROGRESS REPORT ---
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 CT scan of the chest shows right -sided infiltrate with an elevated WBC and she was started on empiric antibiotic therapy. Later on she was transferred to ICU for possible sepsis and pneumonia. She was on pressors and broad-spectrum antibiotics she is off the pressors right now. Further recommendations of the ID etl consultant Dr. Moody Bactrim IV vancomycin and IV levofloxacin was discontinued, presently patient is on IV ceftriaxone p.o. vancomycin and also on ampicillin. Patient is running low-grade fever. She was presently intubated. She is hypotensive at this time blood pressure is 75/45 not on pressors getting IV fluids normal saline at 75 cc/h 06/27/2018 patient is still intubated on 30% oxygen pulse ox is around 97-98% patient is alert try to respond to verbal commands no acute events over the last 24 hours. 06/28/2018 and is still intubated on SIMV 450 tidal volume PEEP of 5 oh to 30% SPO2 is 95%. The weaning process was going to start today will believe patient may be able to extubated by tomorrow. Issues or concerns reported by the nurses from last night patient is on Versed for sedation. And is afebrile for the last 24-36 hours. Reason For Visit: SEPSIS DIABETES, COPD EXACERBATION PNEUMONIA Physical Exam Vital Signs: Temp Pulse Resp BP Pulse Ox 97.7 F 94 14 97/56 L 96 06/28/18 07:44 06/28/18 02:25 06/28/18 06:36 06/28/18 06:36 06/28/18 06:36 Intake & Output 06/27/18 06/28/18 06/29/18 06:59 06:59 06:59 Intake Total 1717 881 Output Total 2104 7005 200 Balance -53 -2394 -200 Weight 86.1 kg 83.8 kg General appearance: PRESENT: no acute distress Head exam: PRESENT: atraumatic Eye exam: PRESENT: PERRLA Neck exam: ABSENT: carotid bruit, JVD, lymphadenopathy, thyromegaly Respiratory exam: PRESENT: unlabored, other - pt is intubated on sedation Cardiovascular exam: PRESENT: RRR. ABSENT: diastolic murmur, rubs, systolic murmur GI/Abdominal exam: PRESENT: normal bowel sounds, soft. ABSENT: distended, guarding, mass, organolmegaly, rebound, tenderness Neurological exam: PRESENT: other - Patient is under sedation Results Laboratory Results: 06/28/18 06:00 06/28/18 06:00 06/27/18 06/27/18 06/27/18 03:30 10:37 10:37 WBC RBC Hgb Hct MCV MCH MCHC RDW Plt Count Seg Neutrophils % Lymphocytes % Monocytes % Eosinophils % Basophils % Absolute Neutrophils Absolute Lymphocytes Absolute Monocytes Absolute Eosinophils Absolute Basophils Carbonic Acid HCO3/H2CO3 Ratio ABG pH ABG pCO2 ABG pO2 ABG HCO3 ABG O2 Saturation ABG Base Excess FiO2 Sodium 128.5 L Potassium 3.6 Chloride 96 L Carbon Dioxide 20 L Anion Gap 13 BUN 21 H Creatinine 1.61 H Est GFR ( Amer) 38 L Est GFR (Non-Af Amer) 31 L Glucose 164 H Calcium 7.3 L Magnesium 2.2 Total Bilirubin 0.2 AST 14 ALT 21 Alkaline Phosphatase 48 Total Protein 4.7 L Albumin 2.4 L Fluid Tube Number 3 CSF Volume 17.0 CSF Appearance CLEAR CSF Color COLORLESS CSF WBC 0 CSF RBC 0 CSF Glucose 118 H CSF Total Protein 123 H 06/28/18 06/28/18 06/28/18 06:00 06:00 06:00 WBC 4.9 RBC 2.59 L Hgb 7.7 L Hct 22.7 L MCV 88 MCH 29.8 MCHC 34.0 RDW 16.8 H Plt Count 139 L Seg Neutrophils % Not Reportable Lymphocytes % Not Reportable Monocytes % Not Reportable Eosinophils % Not Reportable Basophils % Not Reportable Absolute Neutrophils Not Reportable Absolute Lymphocytes Not Reportable Absolute Monocytes Not Reportable Absolute Eosinophils Not Reportable Absolute Basophils Not Reportable Carbonic Acid 1.00 L HCO3/H2CO3 Ratio 23:1 ABG pH 7.47 H ABG pCO2 33.3 L ABG pO2 61.4 L ABG HCO3 23.4 ABG O2 Saturation 93.1 L ABG Base Excess -0.1 FiO2 21% Sodium 133.9 L Potassium 3.3 L Chloride 101 Carbon Dioxide 23 Anion Gap 10 BUN 22 H Creatinine 1.41 H Est GFR ( Amer) 44 L Est GFR (Non-Af Amer) 36 L Glucose 200 H Calcium 7.4 L Magnesium 2.1 Total Bilirubin 0.2 AST 10 L ALT 19 Alkaline Phosphatase 44 Total Protein 4.3 L Albumin 2.2 L Fluid Tube Number CSF Volume CSF Appearance CSF Color CSF WBC CSF RBC CSF Glucose CSF Total Protein 06/26/18 10:10 NT-Pro-B Natriuret Pep 03260 H Impressions: Abdomen/Pelvis CT 06/20/18 22:27 IMPRESSION: New focal area of parenchymal consolidation within the posterior aspect of the right lower lung, image 33 which could be secondary to an acute infectious process/area of pneumonitis. Postobstructive atelectasis/pneumonitis is a consideration. Small right pleural fluid collection, decreased when compared with the prior exam. Partially visualized air within the soft tissues of the upper extremities could be secondary to recent instrumentation. Please correlate. No acute intra-abdominal abnormality. Chest CT 06/20/18 22:27 IMPRESSION: New focal area of parenchymal consolidation within the posterior aspect of the right lower lung, image 33 which could be secondary to an acute infectious process/area of pneumonitis. Postobstructive atelectasis/pneumonitis is a consideration. Small right pleural fluid collection, decreased when compared with the prior exam. Partially visualized air within the soft tissues of the upper extremities could be secondary to recent instrumentation. Please correlate. No acute intra-abdominal abnormality. Head CT 06/23/18 00:00 IMPRESSION: No acute intracranial findings. Head MRI 06/24/18 13:39 IMPRESSION: ATROPHY AND CHRONIC MICRO-VASCULAR ISCHEMIC CHANGES. OTHERWISE NORMAL MRI OF THE BRAIN WITHOUT INTRAVENOUS GADOLINIUM CONTRAST. EVIDENCE OF ACUTE STROKE: NO. Guidance Fluoroscopy 06/27/18 00:00 IMPRESSION: Lumbar puncture under fluoroscopy. No immediate complication. KUB X-Ray 06/27/18 00:00 IMPRESSION: Tip of the enteric tube likely in the proximal stomach with the sidehole near the GE junction. Mild gaseous distention of the colon copyright 2010 [employer]- All Rights Reserved Lumbar Puncture 06/27/18 00:00 IMPRESSION: Lumbar puncture under fluoroscopy. No immediate complication. Assessment & Plan - Diagnosis (1) Acute respiratory failure with hypoxia and hypercapnia Is this a current diagnosis for this admission?: Yes Plan: 06/26/2018 acute respiratory failure with hypoxia status post intubation, right lower infiltration in the chest x-ray is improving. Blood cultures are negative. Check pulmonology for consultation. Latest ABG today pH is 7.3 piece CO2 41 PO2 76% bicarb is 20 this is is done while the patient is intubated. I am planning to change the sedation from propofol to Versed today because of the low blood pressures. 06/27/2018-patient was seen by the fruit dumper Dr. Alvarez. Patient pulse oxes are much better compared to yesterday. And is now on 30% oxygen. On SIMV with tidal volume of 450 respiratory rate 14 PEEP of 5. Weaning process was started from yesterday. Her sedation she is on propofol. Continue to follow the fruit dumper recommendations. ABG today improved compared to yesterday pH is 7.35 PCO2 41 PO2 82.3 bicarb is 22. 06/28/2018 no acute changes in the last 24 hours and is on SMV still intubated pulse ox is 96%. Pulmonology is following the patient. Weaning process is going to be started from today. Patient is on PEEP of 5. BG today pH is 7.47 PCO2 33 PO2 61, bicarb is 23. This is on room air. Hypercapnia is resolving. it may Improve her mental status. (2) Altered mental status Qualifiers: Altered mental status type: delirium Qualified Code(s): R41.0 - Disorientation, unspecified Is this a current diagnosis for this admission?: Yes Plan: 06/27/2018 patient is going for LP today. Altered mental status may be secondary to metabolic causes versus infectious causes. Patient right now on ceftriaxone. And also on the p.o. vancomycin and sent for C. difficile. Patient is off the DVT prophylaxis for possible LP around 10:00 today. In my opinion her mental status is improving. 06/28/2018 patient had LP yesterday the cell count is 0. WBC is seen. culktures pending. Per ID recommendations I stopped IV ceftriaxone. She is only on p.o. Vanco sent for C. difficile. (3) Pneumococcal bacteremia Is this a current diagnosis for this admission?: Yes Plan: 06/26/2018-patient is presently on IV ceftriaxone and ampicillin. Latest blood cultures are negative. The blood cultures from 06/21/2018 indicates MRSA with strep pneumonia. Following the ID recommendations. The MRI of the brain rule out any acute changes. Patient is still having the low-grade. fever. The plan is to continue the present antibiotic therapy and follow the further recommendations from Dr. Garcia. We are planning to do the daily follow-up chest x-rays. 06/27/2018. It is on IV ceftriaxone. As per the ID recommendations, ampicillin was discontinued. His blood cultures are negative. She is afebrile. Chest x-ray report from yesterday indicating improvement in right lower base aeration. It is presently on IV ceftriaxone. 06/28/2018 as per ID recommendations IV ceftriaxone is discontinued. Blood cultures are negative. LP came back negative so far. Repeat chest x-ray yesterday indicating persistent right perihilar banding/consolidation. Patient is afebrile in the last 24-36 hours. Patient is on Levophed 2 mics and the latest blood pressure is 113/70. She is off the IV fluids. (4) Septic shock Is this a current diagnosis for this admission?: Yes Plan: 06/26/2018-blood cultures from 1120 2017+ for strep pneumonia sputum cultures from 1121 2017+ for MRSA and the latest blood cultures are negative. Patient is presently on ampicillin 2 grams IV every 4 hours and also on ceftriaxone 2 g IV daily. Patient is hypotensive this morning blood pressure 75/45 and IV fluids normal saline running at 75 cc/h I requested the nurse to give to 50 cc bolus of normal saline and also put the order for Levophed to titrate to improve the blood pressures doing the gentle hydration because of the patient's underlying history of congestive heart failure. 06/27/2018-is afebrile. Patient is presently on IV normal saline 50 cc/h on she is on Levophed. Pressure is 122/80. I discontinued IV fluids from today. 06/28/2018 patient's blood pressures are gradually improving latest blood pressure is 113/60 on 2 mics of Levophed ,off the IV fluids afebrile blood cultures are negative. Septic shock is resolving. (5) Hyponatremia Is this a current diagnosis for this admission?: Yes Plan: 06/26/2018 patient's sodium level is 124.7 today, on admission his it is around 141 there is a gradual and significant drop of sodiums in the last 1248 hrs. did drop his sodium despite the patient is getting normal saline at 75 cc/h. The urinary output in the last 24 hours is 800 cc and input is to around 2.4 L. Because of the significant drop in sodium and requesting a nephrology consult. Patient's creatinine is 1.56 stable. We are going to continue to closely monitor the sodium levels. 06/27/2018 latest sodium levels is 126.7 nephrology was consulted waiting for urinary sodium and urine sodium osmolality. His latest creatinine is 1.62. Going to start her on tube feeding from today. We will continue to follow the nephrology recommendations. 2017 serum sodium is 134, almost back to normal at nephrology is following the case for hyponatremia. To follow the nephrology recommendations. (6) C. difficile colitis Is this a current diagnosis for this admission?: Yes Plan: 06/26/2018-cultures were positive for C. difficile and on p.o. vancomycin and contact precautions. We will continue the p.o. vancomycin. 06/27/2018 today's plan is to continue p.o. vancomycin for C. difficile. She is on contact precautions. 06/28/2018 patient is on p.o. vancomycin for C. difficile. Patient does not have any bowel movement for the last 4 days. May be secondary to lack of nutrition based on the fact that she is n.p.o. Patient was given enema yesterday without any bowel movement. (7) CHF (congestive heart failure) Qualifiers: Heart failure type: diastolic Heart failure chronicity: acute on chronic Qualified Code(s): I50.33 - Acute on chronic diastolic (congestive) heart failure Is this a current diagnosis for this admission?: Yes Plan: 06/26/2018 patient has history of congestive heart failure and despite being the low blood pressures. Given the gentle hydration to prevent any fluid overload. If necessary we can to start her on pressors. I am going to request for the echocardiogram. 06/27/2018 has history of CHF due to concerns about volume overload we are giving her gentle hydration due to the fact that blood pressures are better we plan to discontinue IV fluids today. Echocardiogram was done yesterday EF is 65 %. Is a grade 1 / 4 mild diastolic dysfunction. Patient is not in fluid overload. Chest was clear. 06/28/2018 the echocardiogram done EF is 65% grade 1/4 mild diastolic dysfunction chest was clear but she has 2+ pedal edema. She is off the IV fluids. (8) Hypokalemia Is this a current diagnosis for this admission?: Yes Plan: 06/27/2018 proclaim is resolved latest potassium level is 4.1. Today's labs are pending. 06/28/2018 potassium level today is 3.3 going to give her 40 mEq of potassium liquid via NG tube. (9) Hypokalemia Is this a current diagnosis for this admission?: Yes (10) Diabetes mellitus type 2 in obese Is this a current diagnosis for this admission?: Yes Plan: 06/26/2018-patient's blood sugars are running low latest blood sugar is around 80. She is n.p.o. and intubated. Patient is to be on metformin at home it was on hold during this hospital stay. 06/27/2018 patient is n.p.o. for the last 3 days we are going to start her on her tube feedings today and we are going to start her on regular insulin sliding scale every 6 hours. Latest blood sugar is 137. 06/28/2018 it is still n.p.o. she has an NG tube, we are going to try to start her on NG tube feedings from today. Latest blood sugars is 200. pt is on sliding scale. (11) COPD exacerbation Is this a current diagnosis for this admission?: Yes Plan: 06/26/2018-patient is admitted for fever and pneumonia status post intubation. Culture positive for strep pneumonia. It is on ceftriaxone and ampicillin. 06/27/2018 patient is still intubated no wheezing no crepitations on examination. There is a possibility of extubation in the next 24-48 hours. She is presently on a ceftriaxone. Chest x-ray shows improved aeration in the right lung base. 06/28/2018 no wheezing, no crepitations heard. Patient is still intubated probable extubation tomorrow. Chest x-ray shows persistent right hilar banding/ consolidation. We will continue the present management. Patient is on Xopenex nebulizations every 4 as needed. (12) Hypomagnesemia Is this a current diagnosis for this admission?: Yes Plan: 06/26/2018 latest magnesium level is 1.5 planning to give her magnesium supplementation 2 g IV 1 dose. 06/27/2018 and received 2 g of IV magnesium yesterday. Today's magnesium levels are pending. 06/28/2018 today's magnesium level is 2.1. Hypomagnesemia is resolved. (13) Encephalopathy Is this a current diagnosis for this admission?: Yes Plan: 06/26/2018-the cause for her altered mental status/and can follow-up with may be secondary to either infectious process metabolic causes latest sodium is 124. MRI of the brain was done no acute changes. 06/27/2018 she is going for LP today. MRI of the brain was done during this hospital stay with no acute changes. Patient is on IV ceftriaxone. 06/28/2018 LP was done yesterday, the cell count is 0. encephalopathy may be secondary to infectious cause versus metabolic reasons. pt is off the IV antibiotics. (14) Anemia Qualifiers: Anemia type: unspecified type Qualified Code(s): D64.9 - Anemia, unspecified Is this a current diagnosis for this admission?: Yes Plan: 06/26/2018 patient has history of chronic anemia. Her hemoglobin is stable around 8.1. 06/27/2018 patient's hemoglobin is status between 8.1-8.3. 08/28/2017 latest hemoglobin is 7.7, her baseline is around 8.1-8.3 I am going to repeat the CBC tomorrow if necessary we will arrange for 1 unit of blood transfusion. (15) GERD (gastroesophageal reflux disease) Qualifiers: Esophagitis presence: esophagitis presence not specified Qualified Code(s) : K21.9 - Gastro-esophageal reflux disease without esophagitis Is this a current diagnosis for this admission?: Yes Plan: 06/26/2018 plan for today is to continue PPIs. 06/27/2018 for GI prophylaxis with planning to continue PPIs. 06/28/2018 for GI prophylaxis we will continue the PPIs. (16) Hypocalcemia Is this a current diagnosis for this admission?: Yes Plan: 06/27/2018 serum calcium levels are 7.3. Albumin min is 2.2. Calcium is around 8.4 to 8.6. 06/28/2018 serum calcium is 7.4, serum albumin is 2.2. Corrected calcium is around 8.5. - Time Time Spent with patient: 25-34 minutes Medications reviewed and adjusted accordingly: Yes
[2018-06-28] MEDS ORDERED: POTASSIUM CHLORIDE 20 MEQ/15 ML UDCUP PO ONE (08:30)
[2018-06-28] MEDS: TIOTROPIUM BROMIDE DPI 5 CAP/KIT (18 MCG/CAP) IH SCH (09:51)
[2018-06-28] MEDS: FLUTICASONE NASAL SPRAY 50 MCG/SPRY 120 SPRAY/16 GM NASL SCH ×2 (09:53→21:09)
[2018-06-28] MEDS: FAMOTIDINE 20 MG TABLET PO SCH ×2 (10:31→21:10)
[2018-06-28] MEDS: FUROSEMIDE INJ/PF 20 MG/2 ML SDV IV SCH (10:31)
--- NOTE | 2018-06-28 15:53 | PDOC PROGRESS REPORT ---
Subjective Subjective:: Patient is currently intubated and sedated. She was recently taken off of all pressors. She is following commands. She is currently on lasix and has produced over 3L of urine yesterday. Reason For Visit: SEPSIS DIABETES, COPD EXACERBATION PNEUMONIA Physical Exam Vital Signs: Temp Pulse Resp BP Pulse Ox 99.3 F 106 H 15 121/55 L 96 06/28/18 14:07 06/28/18 14:24 06/28/18 14:24 06/28/18 14:07 06/28/18 14:24 Intake & Output 06/27/18 06/28/18 06/29/18 06:59 06:59 06:59 Intake Total 1717 881 51 Output Total 3858 6175 850 Balance -48 -1568 -519 Weight 86.1 kg 83.8 kg General appearance: PRESENT: no acute distress, morbidly obese, well-developed, well-nourished Neck exam: ABSENT: JVD, tracheal deviation Respiratory exam: PRESENT: clear to auscultation jeff. ABSENT: crackles, rales Cardiovascular exam: PRESENT: +S1, +S2 GI/Abdominal exam: PRESENT: soft. ABSENT: ascites, distended, tenderness Extremities exam: PRESENT: pedal edema, +2 edema. ABSENT: tenderness, +1 edema Musculoskeletal exam: PRESENT: normal inspection. ABSENT: tenderness Neurological exam: ABSENT: alert, awake Skin exam: PRESENT: dry, intact, warm Results Laboratory Results: 06/28/18 06:00 06/28/18 06:00 06/28/18 06/28/18 06/28/18 06:00 06:00 06:00 WBC 4.9 RBC 2.59 L Hgb 7.7 L Hct 22.7 L MCV 88 MCH 29.8 MCHC 34.0 RDW 16.8 H Plt Count 139 L Seg Neutrophils % Not Reportable Lymphocytes % Not Reportable Monocytes % Not Reportable Eosinophils % Not Reportable Basophils % Not Reportable Absolute Neutrophils Not Reportable Absolute Lymphocytes Not Reportable Absolute Monocytes Not Reportable Absolute Eosinophils Not Reportable Absolute Basophils Not Reportable Carbonic Acid 1.00 L HCO3/H2CO3 Ratio 23:1 ABG pH 7.47 H ABG pCO2 33.3 L ABG pO2 61.4 L ABG HCO3 23.4 ABG O2 Saturation 93.1 L ABG Base Excess -0.1 FiO2 21% Sodium 133.9 L Potassium 3.3 L Chloride 101 Carbon Dioxide 23 Anion Gap 10 BUN 22 H Creatinine 1.41 H Est GFR ( Amer) 44 L Est GFR (Non-Af Amer) 36 L Glucose 200 H Calcium 7.4 L Magnesium 2.1 Total Bilirubin 0.2 AST 10 L ALT 19 Alkaline Phosphatase 44 Total Protein 4.3 L Albumin 2.2 L 06/26/18 10:10 NT-Pro-B Natriuret Pep 73838 H Impressions: Abdomen/Pelvis CT 06/20/18 22:27 IMPRESSION: New focal area of parenchymal consolidation within the posterior aspect of the right lower lung, image 33 which could be secondary to an acute infectious process/area of pneumonitis. Postobstructive atelectasis/pneumonitis is a consideration. Small right pleural fluid collection, decreased when compared with the prior exam. Partially visualized air within the soft tissues of the upper extremities could be secondary to recent instrumentation. Please correlate. No acute intra-abdominal abnormality. Chest CT 06/20/18 22:27 IMPRESSION: New focal area of parenchymal consolidation within the posterior aspect of the right lower lung, image 33 which could be secondary to an acute infectious process/area of pneumonitis. Postobstructive atelectasis/pneumonitis is a consideration. Small right pleural fluid collection, decreased when compared with the prior exam. Partially visualized air within the soft tissues of the upper extremities could be secondary to recent instrumentation. Please correlate. No acute intra-abdominal abnormality. Head CT 06/23/18 00:00 IMPRESSION: No acute intracranial findings. Head MRI 06/24/18 13:39 IMPRESSION: ATROPHY AND CHRONIC MICRO-VASCULAR ISCHEMIC CHANGES. OTHERWISE NORMAL MRI OF THE BRAIN WITHOUT INTRAVENOUS GADOLINIUM CONTRAST. EVIDENCE OF ACUTE STROKE: NO. Guidance Fluoroscopy 06/27/18 00:00 IMPRESSION: Lumbar puncture under fluoroscopy. No immediate complication. KUB X-Ray 06/27/18 00:00 IMPRESSION: Tip of the enteric tube likely in the proximal stomach with the sidehole near the GE junction. Mild gaseous distention of the colon copyright 2010 [employer]- All Rights Reserved Lumbar Puncture 06/27/18 00:00 IMPRESSION: Lumbar puncture under fluoroscopy. No immediate complication. Chest X-Ray 06/28/18 19:00 IMPRESSION: NO SIGNIFICANT CHANGE IN APPEARANCE OF THE CHEST. Assessment & Plan - Diagnosis (1) Hyponatremia Is this a current diagnosis for this admission?: Yes Plan: currently improving, continue on furosemide (2) MARY LOU (acute kidney injury) Plan: currently improving will need to monitor urine output closely (3) Septic shock Is this a current diagnosis for this admission?: Yes Plan: improving off all IV antibiotics, on PO vanc for c-diff (4) Acute respiratory failure with hypoxia and hypercapnia Is this a current diagnosis for this admission?: Yes Plan: intubated and sedated, currently breathing on her own. (5) Hypokalemia Is this a current diagnosis for this admission?: Yes Plan: Recently received IV potassium. (6) Pneumonia Qualifiers: Pneumonia type: due to unspecified organism Laterality: right Lung location: unspecified part of lung Qualified Code(s): J18.9 - Pneumonia, unspecified organism Is this a current diagnosis for this admission?: Yes
[2018-06-28] MEDS: DEXTROSE 5%-WATER 250 ML with NOREPINEPHRINE BITARTRATE 4 MG IV PRN ×2 (16:37)
[2018-06-28] MEDS: ALBUMIN HUMAN 12.5 GM/50 ML RTUINJ IV SCH ×2 (17:40→18:49)
[2018-06-28] MEDS: MIDAZOLAM HCL 50 MG/100 ML RTUINJ IV PRN (19:58)
[2018-06-28] MEDS: SERTRALINE HCL 50 MG TABLET PO SCH (21:10)
[2018-06-29] MEDS: LEVALBUTEROL HCL NEB 1.25 MG/3 ML AMPUL NEB SCH ×4 (02:16→20:19)
[2018-06-29] MEDS: IPRATROPIUM BROMIDE 0.02% NEB 0.5 MG/2.5 ML AMPUL NEB SCH ×4 (02:16→20:19)
[2018-06-29] MEDS: VANCOMYCIN HCL INJ 500 MG VIAL PO SCH ×4 (03:13→23:21)
[2018-06-29] MEDS: MIDAZOLAM HCL 50 MG/100 ML RTUINJ IV PRN (03:40)
[2018-06-29] MEDS: METHYLPREDNISOLONE INJ 125 MG/2 ML SDV IV SCH ×2 (05:08→18:57)
[2018-06-29] MEDS: LEVOTHYROXINE SODIUM 0.112 MG TABLET PO SCH (05:08)
[2018-06-29 06:01] LABS: ARTERIAL BLOOD BASE EXCESS 1.5 mmol/L; ARTERIAL BLOOD FIO2 21%; ARTERIAL BLOOD H2CO3 1.07 mmol/L (1.05-1.35); ARTERIAL BLOOD HCO3 25.1 mmol/L (20-24); ARTERIAL BLOOD O2 SATURATION 94.8 % (94-98); ARTERIAL BLOOD PCO2 35.5 mmHg (35-45); ARTERIAL BLOOD PH 7.47 (7.35-7.45); ARTERIAL BLOOD PO2 68.2 mmHg (80-100); ARTERIAL BLOOD TOTAL CO2 26.2 mmol/L (21-25)
[2018-06-29 06:07] LABS: HEMATOCRIT 21.3 % (36.0-47.0); MEAN CORPUSCULAR HEMOGLOBIN 29.8 pg (27.0-33.4); MEAN CORPUSCULAR HGB CONC 34.2 g/dL (32.0-36.0); MEAN CORPUSCULAR VOLUME 87 fl (80-97); PLATELET COUNT 141 10^3/uL (150-450); RED BLOOD COUNT 2.44 10^6/uL (3.72-5.28); RED CELL DISTRIBUTION WIDTH 16.7 % (11.5-14.0); WHITE BLOOD COUNT 4.7 10^3/uL (4.0-10.5)
[2018-06-29 06:22] LABS: HEMOGLOBIN 7.3 g/dL (12.0-15.5)
[2018-06-29 06:39] LABS: ALANINE AMINOTRANSFERASE 14 U/L (9-52); ALBUMIN 2.5 g/dL (3.5-5.0); ALKALINE PHOSPHATASE 47 U/L (38-126); ANION GAP 9 (5-19); ASPARTATE AMINO TRANSFERASE 12 U/L (14-36); BILIRUBIN,DIRECT 0.2 mg/dL (0.0-0.4); BILIRUBIN,TOTAL 0.2 mg/dL (0.2-1.3); BLOOD UREA NITROGEN 23 mg/dL (7-20); CALCIUM 7.9 mg/dL (8.4-10.2); CARBON DIOXIDE 24 mmol/L (22-30); CHLORIDE 102 mmol/L (98-107); GLUCOSE 142 mg/dL (75-110); SODIUM 135.4 mmol/L (137-145); TOTAL PROTEIN 4.5 g/dL (6.3-8.2)
[2018-06-29 06:42] LABS: ABSOLUTE LYMPHOCYTES# (MANUAL) 0.1 10^3/uL (0.5-4.7); ABSOLUTE MONOCYTES # (MANUAL) 0.1 10^3/uL (0.1-1.4); ABSOLUTE NEUTROPHILS# (MANUAL) 4.5 10^3/uL (1.7-8.2); ANISOCYTOSIS 1+; BASOPHILS % (MANUAL) 0 % (0-2); EOSINOPHILS % (MANUAL) 0 % (0-6); LYMPHOCYTES % (MANUAL) 3 % (13-45); MONOCYTES % (MANUAL) 2 % (3-13); PLATELET COMMENT ADEQUATE; PLATELET GIANT PRESENT; SCHISTOCYTES 1+; SEGMENTED NEUTROPHILS % (MAN) 95 % (42-78); TOTAL CELLS COUNTED 100; TOXIC GRANULATION 2+
[2018-06-29] MEDS ORDERED: NORMAL SALINE 250 ML IV PRN ×2 (07:25)
[2018-06-29] MEDS ORDERED: FUROSEMIDE INJ/PF 20 MG/2 ML SDV IV ONE ×2 (07:39→11:00)
--- NOTE | 2018-06-29 08:04 | PDOC PROGRESS REPORT ---
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 CT scan of the chest shows right -sided infiltrate with an elevated WBC and she was started on empiric antibiotic therapy. Later on she was transferred to ICU for possible sepsis and pneumonia. She was on pressors and broad-spectrum antibiotics she is off the pressors right now. Further recommendations of the ID service delivery management consultant Dr. Moody Bactrim IV vancomycin and IV levofloxacin was discontinued, presently patient is on IV ceftriaxone p.o. vancomycin and also on ampicillin. Patient is running low-grade fever. She was presently intubated. She is hypotensive at this time blood pressure is 75/45 not on pressors getting IV fluids normal saline at 75 cc/h 06/27/2018 patient is still intubated on 30% oxygen pulse ox is around 97-98% patient is alert try to respond to verbal commands no acute events over the last 24 hours. 06/28/2018 pt is still intubated on SIMV 450 tidal volume PEEP of 5 oh to 30% SPO2 is 95%. The weaning process was going to start today will believe patient may be able to extubated by tomorrow. Issues or concerns reported by the nurses from last night patient is on Versed for sedation. And is afebrile for the last 24-36 hours. 06/29/2018 patient is still intubated. She is on FiO2 of 21%. Pulse ox's are 94-96%. Still on Versed drip for sedation. Levophed was turned off last night and blood pressures are stable. Acute events in the last 24 hours. Started on PEG feeding yesterday. She had a bowel movements. And is still on p.o. vancomycin for C. difficile. On contact isolation. Patient is afebrile in the last 24 hours. Reason For Visit: SEPSIS DIABETES, COPD EXACERBATION PNEUMONIA Physical Exam Vital Signs: Temp Pulse Resp BP Pulse Ox 98.2 F 109 H 16 119/62 96 06/29/18 06:06 06/29/18 02:20 06/29/18 06:06 06/29/18 06:06 06/29/18 06:06 Intake & Output 06/28/18 06/29/18 06/30/18 06:59 06:59 06:59 Intake Total 881 576 Output Total 3278 8420 Balance -4111 -2339 Weight 83.8 kg 81.3 kg General appearance: PRESENT: no acute distress Head exam: PRESENT: atraumatic Eye exam: PRESENT: PERRLA Neck exam: ABSENT: carotid bruit, JVD, lymphadenopathy, thyromegaly Respiratory exam: PRESENT: other - Chest examination transmitted breath sounds. Cardiovascular exam: PRESENT: tachycardia GI/Abdominal exam: PRESENT: normal bowel sounds, soft. ABSENT: tenderness Extremities exam: ABSENT: pedal edema Neurological exam: PRESENT: other - Shunt is intubated and Versed drip for sedation. Psychiatric exam: ABSENT: agitated Results Laboratory Results: 06/29/18 05:30 06/29/18 05:30 06/29/18 06/29/18 06/29/18 05:30 05:30 05:30 WBC 4.7 RBC 2.44 L Hgb 7.3 L Hct 21.3 L MCV 87 MCH 29.8 MCHC 34.2 RDW 16.7 H Plt Count 141 L Seg Neutrophils % Not Reportable Lymphocytes % Not Reportable Monocytes % Not Reportable Eosinophils % Not Reportable Basophils % Not Reportable Absolute Neutrophils Not Reportable Absolute Lymphocytes Not Reportable Absolute Monocytes Not Reportable Absolute Eosinophils Not Reportable Absolute Basophils Not Reportable Carbonic Acid 1.07 HCO3/H2CO3 Ratio 23:1 ABG pH 7.47 H ABG pCO2 35.5 ABG pO2 68.2 L ABG HCO3 25.1 H ABG O2 Saturation 94.8 ABG Base Excess 1.5 FiO2 21% Sodium 135.4 L Potassium 4.0 Chloride 102 Carbon Dioxide 24 Anion Gap 9 BUN 23 H Creatinine 1.21 Est GFR ( Amer) 53 L Est GFR (Non-Af Amer) 43 L Glucose 142 H Calcium 7.9 L Magnesium 2.1 Total Bilirubin 0.2 AST 12 L ALT 14 Alkaline Phosphatase 47 Total Protein 4.5 L Albumin 2.5 L 06/26/18 10:10 NT-Pro-B Natriuret Pep 95637 H Impressions: Abdomen/Pelvis CT 06/20/18 22:27 IMPRESSION: New focal area of parenchymal consolidation within the posterior aspect of the right lower lung, image 33 which could be secondary to an acute infectious process/area of pneumonitis. Postobstructive atelectasis/pneumonitis is a consideration. Small right pleural fluid collection, decreased when compared with the prior exam. Partially visualized air within the soft tissues of the upper extremities could be secondary to recent instrumentation. Please correlate. No acute intra-abdominal abnormality. Chest CT 06/20/18 22:27 IMPRESSION: New focal area of parenchymal consolidation within the posterior aspect of the right lower lung, image 33 which could be secondary to an acute infectious process/area of pneumonitis. Postobstructive atelectasis/pneumonitis is a consideration. Small right pleural fluid collection, decreased when compared with the prior exam. Partially visualized air within the soft tissues of the upper extremities could be secondary to recent instrumentation. Please correlate. No acute intra-abdominal abnormality. Head CT 06/23/18 00:00 IMPRESSION: No acute intracranial findings. Head MRI 06/24/18 13:39 IMPRESSION: ATROPHY AND CHRONIC MICRO-VASCULAR ISCHEMIC CHANGES. OTHERWISE NORMAL MRI OF THE BRAIN WITHOUT INTRAVENOUS GADOLINIUM CONTRAST. EVIDENCE OF ACUTE STROKE: NO. Guidance Fluoroscopy 06/27/18 00:00 IMPRESSION: Lumbar puncture under fluoroscopy. No immediate complication. KUB X-Ray 06/27/18 00:00 IMPRESSION: Tip of the enteric tube likely in the proximal stomach with the sidehole near the GE junction. Mild gaseous distention of the colon copyright 2010 [employer]- All Rights Reserved Lumbar Puncture 06/27/18 00:00 IMPRESSION: Lumbar puncture under fluoroscopy. No immediate complication. Assessment & Plan - Diagnosis (1) Acute respiratory failure with hypoxia and hypercapnia Is this a current diagnosis for this admission?: Yes Plan: 06/26/2018 acute respiratory failure with hypoxia status post intubation, right lower infiltration in the chest x-ray is improving. Blood cultures are negative. Check pulmonology for consultation. Latest ABG today pH is 7.3 piece CO2 41 PO2 76% bicarb is 20 this is is done while the patient is intubated. I am planning to change the sedation from propofol to Versed today because of the low blood pressures. 06/27/2018-patient was seen by the director of product development Dr. Alvarez. Patient pulse oxes are much better compared to yesterday. And is now on 30% oxygen. On SIMV with tidal volume of 450 respiratory rate 14 PEEP of 5. Weaning process was started from yesterday. Her sedation she is on propofol. Continue to follow the director of product development recommendations. ABG today improved compared to yesterday pH is 7.35 PCO2 41 PO2 82.3 bicarb is 22. 06/28/2018 no acute changes in the last 24 hours and is on SMV still intubated pulse ox is 96%. Pulmonology is following the patient. Weaning process is going to be started from today. Patient is on PEEP of 5. BG today pH is 7.47 PCO2 33 PO2 61, bicarb is 23. This is on room air. Hypercapnia is resolving. it may Improve her mental status. 06/29/2018 patient is still intubated pulse ox is 94-96% on FiO2 21%. ABG today pH is 7.47 PCO2 35.5 p.o. to 68 bicarb is 25. Hypercapnia resolved. Patient was weaned off the vent for a few hours last night. Probably we may be able to extubate her today. Pulmonary is on board. (2) Altered mental status Qualifiers: Altered mental status type: delirium Qualified Code(s): R41.0 - Disorientation, unspecified Is this a current diagnosis for this admission?: Yes Plan: 06/27/2018 patient is going for LP today. Altered mental status may be secondary to metabolic causes versus infectious causes. Patient right now on ceftriaxone. And also on the p.o. vancomycin and sent for C. difficile. Patient is off the DVT prophylaxis for possible LP around 10:00 today. In my opinion her mental status is improving. 06/28/2018 patient had LP yesterday the cell count is 0. WBC is seen. culktures pending. Per ID recommendations I stopped IV ceftriaxone. She is only on p.o. Vanco sent for C. difficile. 06/29/2018 blood puncture was done cell count is 0 and culture after 4 stays no growth. Patient is afebrile for the last 24 hours. And is only on p.o. vancomycin for C. difficile. Altered mental status may be secondary to infectious cause/versus metabolic causes. Probably her mental status will improve with physical condition. MRI of the brain was negative. (3) Pneumococcal bacteremia Is this a current diagnosis for this admission?: Yes Plan: 06/26/2018-patient is presently on IV ceftriaxone and ampicillin. Latest blood cultures are negative. The blood cultures from 06/21/2018 indicates MRSA with strep pneumonia. Following the ID recommendations. The MRI of the brain rule out any acute changes. Patient is still having the low-grade. fever. The plan is to continue the present antibiotic therapy and follow the further recommendations from Dr. Garcia. We are planning to do the daily follow-up chest x-rays. 06/27/2018. It is on IV ceftriaxone. As per the ID recommendations, ampicillin was discontinued. His blood cultures are negative. She is afebrile. Chest x-ray report from yesterday indicating improvement in right lower base aeration. It is presently on IV ceftriaxone. 06/28/2018 as per ID recommendations IV ceftriaxone is discontinued. Blood cultures are negative. LP came back negative so far. Repeat chest x-ray yesterday indicating persistent right perihilar banding/consolidation. Patient is afebrile in the last 24-36 hours. Patient is on Levophed 2 mics and the latest blood pressure is 113/70. She is off the IV fluids. 06/29/2018 and is off the antibiotics for the last 48 hours afebrile. WBC is 4.7. CSF culture no growth. Chest x-ray unchanged for the last 48 hours. Cultures are negative. (4) Septic shock Is this a current diagnosis for this admission?: Yes Plan: 06/26/2018-blood cultures from 1120 2017+ for strep pneumonia sputum cultures from 1121 2017+ for MRSA and the latest blood cultures are negative. Patient is presently on ampicillin 2 grams IV every 4 hours and also on ceftriaxone 2 g IV daily. Patient is hypotensive this morning blood pressure 75/45 and IV fluids normal saline running at 75 cc/h I requested the nurse to give to 50 cc bolus of normal saline and also put the order for Levophed to titrate to improve the blood pressures doing the gentle hydration because of the patient's underlying history of congestive heart failure. 06/27/2018-is afebrile. Patient is presently on IV normal saline 50 cc/h on she is on Levophed. Pressure is 122/80. I discontinued IV fluids from today. 06/28/2018 patient's blood pressures are gradually improving latest blood pressure is 113/60 on 2 mics of Levophed ,off the IV fluids afebrile blood cultures are negative. Septic shock is resolving. 06/29/2018 patient blood pressure is 119/62 today. off Levophed from last night. After IV fluids. Cultures are negative. CSF culture is negative. septic shock is resolved. (5) Hyponatremia Is this a current diagnosis for this admission?: Yes Plan: 06/26/2018 patient's sodium level is 124.7 today, on admission his it is around 141 there is a gradual and significant drop of sodiums in the last 1248 hrs. did drop his sodium despite the patient is getting normal saline at 75 cc/h. The urinary output in the last 24 hours is 800 cc and input is to around 2.4 L. Because of the significant drop in sodium and requesting a nephrology consult. Patient's creatinine is 1.56 stable. We are going to continue to closely monitor the sodium levels. 06/27/2018 latest sodium levels is 126.7 nephrology was consulted waiting for urinary sodium and urine sodium osmolality. His latest creatinine is 1.62. Going to start her on tube feeding from today. We will continue to follow the nephrology recommendations. 2017 serum sodium is 134, almost back to normal at nephrology is following the case for hyponatremia. To follow the nephrology recommendations. 06/29/2018 serum sodium today is 135. we are Following the nephrology consult recommendations. Hyponatremia resolved. (6) C. difficile colitis Is this a current diagnosis for this admission?: Yes Plan: 06/26/2018-cultures were positive for C. difficile and on p.o. vancomycin and contact precautions. We will continue the p.o. vancomycin. 06/27/2018 today's plan is to continue p.o. vancomycin for C. difficile. She is on contact precautions. 06/28/2018 patient is on p.o. vancomycin for C. difficile. Patient does not have any bowel movement for the last 4 days. May be secondary to lack of nutrition based on the fact that she is n.p.o. Patient was given enema yesterday without any bowel movement. 06/29/2018 patient is on p.o. vancomycin for C. difficile today is the ninth day we are planning to repeat the C. difficile PCR today. If it is negative we will stop the p.o. vancomycin. (7) CHF (congestive heart failure) Qualifiers: Heart failure type: diastolic Heart failure chronicity: acute on chronic Qualified Code(s): I50.33 - Acute on chronic diastolic (congestive) heart failure Is this a current diagnosis for this admission?: Yes Plan: 06/26/2018 patient has history of congestive heart failure and despite being the low blood pressures. Given the gentle hydration to prevent any fluid overload. If necessary we can to start her on pressors. I am going to request for the echocardiogram. 06/27/2018 has history of CHF due to concerns about volume overload we are giving her gentle hydration due to the fact that blood pressures are better we plan to discontinue IV fluids today. Echocardiogram was done yesterday EF is 65 %. Is a grade 1 / 4 mild diastolic dysfunction. Patient is not in fluid overload. Chest was clear. 06/28/2018 the echocardiogram done EF is 65% grade 1/4 mild diastolic dysfunction chest was clear but she has 2+ pedal edema. She is off the IV fluids. 06/29/2018 echocardiogram EF is 65% with mild diastolic dysfunction. Pedal edema resolved. Evidence of fluid overload on examination today. (8) Hypokalemia Is this a current diagnosis for this admission?: Yes Plan: 06/27/2018 proclaim is resolved latest potassium level is 4.1. Today's labs are pending. 06/28/2018 potassium level today is 3.3 going to give her 40 mEq of potassium liquid via NG tube. 06/29/2018 potassium level today is 4.0 hypokalemia is resolved. (9) Hypokalemia Is this a current diagnosis for this admission?: Yes (10) Diabetes mellitus type 2 in obese Is this a current diagnosis for this admission?: Yes Plan: 06/26/2018-patient's blood sugars are running low latest blood sugar is around 80. She is n.p.o. and intubated. Patient is to be on metformin at home it was on hold during this hospital stay. 06/27/2018 patient is n.p.o. for the last 3 days we are going to start her on her tube feedings today and we are going to start her on regular insulin sliding scale every 6 hours. Latest blood sugar is 137. 06/28/2018 it is still n.p.o. she has an NG tube, we are going to try to start her on NG tube feedings from today. Latest blood sugars is 200. pt is on sliding scale. 06/29/2018 PEG feeding was started at low rate yesterday. We checked the blood sugars with sliding scale. His blood sugar is 142. (11) COPD exacerbation Is this a current diagnosis for this admission?: Yes Plan: 06/26/2018-patient is admitted for fever and pneumonia status post intubation. Culture positive for strep pneumonia. It is on ceftriaxone and ampicillin. 06/27/2018 patient is still intubated no wheezing no crepitations on examination. There is a possibility of extubation in the next 24-48 hours. She is presently on a ceftriaxone. Chest x-ray shows improved aeration in the right lung base. 06/28/2018 no wheezing, no crepitations heard. Patient is still intubated probable extubation tomorrow. Chest x-ray shows persistent right hilar banding/ consolidation. We will continue the present management. Patient is on Xopenex nebulizations every 4 as needed. 06/29/2018 examination no wheezing no crepitations heard. Transmitted breath sounds were heard. Patient is on IV Solu-Medrol 125 mg every 8 hours, I decreased the frequency to every 12 hours today. CoPD exacerbation resolved resolved in my opinion. (12) Hypomagnesemia Is this a current diagnosis for this admission?: Yes Plan: 06/26/2018 latest magnesium level is 1.5 planning to give her magnesium supplementation 2 g IV 1 dose. 06/27/2018 and received 2 g of IV magnesium yesterday. Today's magnesium levels are pending. 06/28/2018 today's magnesium level is 2.1. Hypomagnesemia is resolved. 06/29/2018 latest magnesium level is 2.1. (13) Encephalopathy Is this a current diagnosis for this admission?: Yes Plan: 06/26/2018-the cause for her altered mental status/and can follow-up with may be secondary to either infectious process metabolic causes latest sodium is 124. MRI of the brain was done no acute changes. 06/27/2018 she is going for LP today. MRI of the brain was done during this hospital stay with no acute changes. Patient is on IV ceftriaxone. 06/28/2018 LP was done yesterday, the cell count is 0. encephalopathy may be secondary to infectious cause versus metabolic reasons. pt is off the IV antibiotics. 06/29/2018 EEG shows abnormalities but no seizure activity was noticed. As mentioned above a lumbar puncture was negative so far. Encephalopathy may be secondary to infectious/metabolic causes. (14) Anemia Qualifiers: Anemia type: unspecified type Qualified Code(s): D64.9 - Anemia, unspecified Is this a current diagnosis for this admission?: Yes Plan: 06/26/2018 patient has history of chronic anemia. Her hemoglobin is stable around 8.1. 06/27/2018 patient's hemoglobin is status between 8.1-8.3. 06/28/2018 latest hemoglobin is 7.7, her baseline is around 8.1-8.3 I am going to repeat the CBC tomorrow if necessary we will arrange for 1 unit of blood transfusion. 06/29/2018 and hemoglobin dropped to 7.3 today. We are going to type and screen and transfuse 1 unit of PRBC. The CBC posttransfusion. (15) GERD (gastroesophageal reflux disease) Qualifiers: Esophagitis presence: esophagitis presence not specified Qualified Code(s) : K21.9 - Gastro-esophageal reflux disease without esophagitis Is this a current diagnosis for this admission?: Yes (16) Hypocalcemia Is this a current diagnosis for this admission?: Yes Plan: 06/27/2018 serum calcium levels are 7.3. Albumin min is 2.2. Calcium is around 8.4 to 8.6. 06/28/2018 serum calcium is 7.4, serum albumin is 2.2. Corrected calcium is around 8.5. 06/29/2018, calcium is 7.9 and albumin is 2.5. Corrected calcium may be around 8.8. She is getting albumin 25 mg 2 vials on daily basis. - Time Time Spent with patient: 25-34 minutes Medications reviewed and adjusted accordingly: Yes
--- NOTE | 2018-06-29 08:26 | RADIOLOGY REPORT (SQ) ---
EXAM DESCRIPTION: CHEST SINGLE VIEW COMPLETED DATE/TIME: 06/29/2018 6:44 am REASON FOR STUDY: pna/resp failure COMPARISON: 06/28/2018 EXAM PARAMETERS: NUMBER OF VIEWS: One view. TECHNIQUE: Single frontal radiographic view of the chest acquired. RADIATION DOSE: NA LIMITATIONS: None. FINDINGS: LUNGS AND PLEURA: The previously described right perihilar density appears stable. Remain ing lung curtis are clear P MEDIASTINUM AND HILAR STRUCTURES: No masses. Contour normal. HEART AND VASCULAR STRUCTURES: The configuration of the heart mediastinal structures is unchanged BONES: No acute findings. HARDWARE: Endotracheal tube and central line are unchanged in position. NG tube is seen in course to the abdomen. OTHER: No other significant finding. IMPRESSION: No significant interval change. Findings as noted above TECHNICAL DOCUMENTATION: JOB ID: [id number] [employer]- All Rights Reserved Reading location - IP/workstation name: [email or web address]
[2018-06-29] MEDS: ALBUMIN HUMAN 12.5 GM/50 ML RTUINJ IV SCH ×2 (08:32→09:10)
[2018-06-29] MEDS: FAMOTIDINE 20 MG TABLET PO SCH ×2 (09:10→23:23)
[2018-06-29] MEDS: FLUTICASONE NASAL SPRAY 50 MCG/SPRY 120 SPRAY/16 GM NASL SCH ×2 (09:11→23:21)
[2018-06-29] MEDS: TIOTROPIUM BROMIDE DPI 5 CAP/KIT (18 MCG/CAP) IH SCH (09:11)
[2018-06-29] MEDS ORDERED: DEXAMETHASONE SOD PHOSPHATE INJ 4 MG/1 ML VIAL IV ONE (09:45)
[2018-06-29 14:55] LABS: HEMATOCRIT 26.2 % (36.0-47.0); HEMOGLOBIN 9.1 g/dL (12.0-15.5); MEAN CORPUSCULAR HEMOGLOBIN 30.1 pg (27.0-33.4); MEAN CORPUSCULAR HGB CONC 34.9 g/dL (32.0-36.0); MEAN CORPUSCULAR VOLUME 86 fl (80-97); PLATELET COUNT 134 10^3/uL (150-450); RED BLOOD COUNT 3.03 10^6/uL (3.72-5.28); RED CELL DISTRIBUTION WIDTH 15.5 % (11.5-14.0); WHITE BLOOD COUNT 5.6 10^3/uL (4.0-10.5)
[2018-06-29 15:26] LABS: ABSOLUTE LYMPHOCYTES# (MANUAL) 0.2 10^3/uL (0.5-4.7); ABSOLUTE MONOCYTES # (MANUAL) 0.1 10^3/uL (0.1-1.4); ABSOLUTE NEUTROPHILS# (MANUAL) 5.3 10^3/uL (1.7-8.2); BAND NEUTROPHILS % (MANUAL) 1 % (3-5); BASOPHILS % (MANUAL) 0 % (0-2); EOSINOPHILS % (MANUAL) 0 % (0-6); LYMPHOCYTES % (MANUAL) 3 % (13-45); MONOCYTES % (MANUAL) 2 % (3-13); NUCLEATED RED BLOOD CELLS 1 /100 WBC (0); SEGMENTED NEUTROPHILS % (MAN) 94 % (42-78); TOTAL CELLS COUNTED 100
[2018-06-29 15:27] LABS: ANISOCYTOSIS SLIGHT; HYPOCHROMASIA SLIGHT; PLATELET CLUMPS PRESENT; POLYCHROMASIA SLIGHT; TOXIC GRANULATION 1+
[2018-06-29] MEDS ORDERED: METHYLPREDNISOLONE INJ 125 MG/2 ML SDV ONE (16:49)
--- NOTE | 2018-06-29 17:36 | PDOC PROGRESS REPORT ---
Subjective Progress Note for:: 06/29/18 Subjective:: Patient just got extubated this afternoon and so far has been doing well. She has been asking to have some coffee and to eat something but there is still doing some swallow evaluation on her. Apart from that she does not really have much complaints. She continues to make a good amount of urine output. Reason For Visit: SEPSIS DIABETES, COPD EXACERBATION PNEUMONIA Physical Exam Vital Signs: Temp Pulse Resp BP Pulse Ox 98.8 F 97 22 H 131/69 H 97 06/29/18 16:00 06/29/18 16:00 06/29/18 16:00 06/29/18 16:00 06/29/18 16:00 Intake & Output 06/28/18 06/29/18 06/30/18 06:59 06:59 06:59 Intake Total 881 576 395 Output Total 3275 1605 890 Balance -2394 -1029 -495 Weight 83.8 kg 81.3 kg Exam: General appearance: PRESENT: no acute distress, cooperative, well-developed, well-nourished Head exam: PRESENT: atraumatic, normocephalic Eye exam: PRESENT: conjunctiva slightly pale, PERRLA. ABSENT: scleral icterus Neck exam: ABSENT: JVD Respiratory exam: PRESENT: Diminished breath sounds. She has faint soft expiratory wheezes ABSENT: crackles, rales, rhonchi, unlabored Cardiovascular exam: PRESENT: Regular rate rhythm -+S1, +S2. ABSENT: diastolic murmur, systolic murmur GI/Abdominal exam: PRESENT: normal bowel sounds, soft. ABSENT: guarding, mass, tenderness Extremities exam: Grade 1 bilateral lower extremity edema Neurological exam: PRESENT: alert, awake, communicative. Skin exam: PRESENT: dry, warm, Cardiovascular exam: PRESENT: +S1, +S2 GI/Abdominal exam: PRESENT: soft. ABSENT: ascites, distended, tenderness Results Laboratory Results: 06/29/18 14:45 06/29/18 05:30 06/29/18 06/29/18 06/29/18 05:30 05:30 05:30 WBC 4.7 RBC 2.44 L Hgb 7.3 L Hct 21.3 L MCV 87 MCH 29.8 MCHC 34.2 RDW 16.7 H Plt Count 141 L Seg Neutrophils % Not Reportable Lymphocytes % Not Reportable Monocytes % Not Reportable Eosinophils % Not Reportable Basophils % Not Reportable Absolute Neutrophils Not Reportable Absolute Lymphocytes Not Reportable Absolute Monocytes Not Reportable Absolute Eosinophils Not Reportable Absolute Basophils Not Reportable Carbonic Acid 1.07 HCO3/H2CO3 Ratio 23:1 ABG pH 7.47 H ABG pCO2 35.5 ABG pO2 68.2 L ABG HCO3 25.1 H ABG O2 Saturation 94.8 ABG Base Excess 1.5 FiO2 21% Sodium 135.4 L Potassium 4.0 Chloride 102 Carbon Dioxide 24 Anion Gap 9 BUN 23 H Creatinine 1.21 Est GFR ( Amer) 53 L Est GFR (Non-Af Amer) 43 L Glucose 142 H Calcium 7.9 L Magnesium 2.1 Total Bilirubin 0.2 AST 12 L ALT 14 Alkaline Phosphatase 47 Total Protein 4.5 L Albumin 2.5 L Blood Type Antibody Screen 06/29/18 06/29/18 08:00 14:45 WBC 5.6 RBC 3.03 L Hgb 9.1 L Hct 26.2 L MCV 86 MCH 30.1 MCHC 34.9 RDW 15.5 H Plt Count 134 L Seg Neutrophils % Not Reportable Lymphocytes % Not Reportable Monocytes % Not Reportable Eosinophils % Not Reportable Basophils % Not Reportable Absolute Neutrophils Not Reportable Absolute Lymphocytes Not Reportable Absolute Monocytes Not Reportable Absolute Eosinophils Not Reportable Absolute Basophils Not Reportable Carbonic Acid HCO3/H2CO3 Ratio ABG pH ABG pCO2 ABG pO2 ABG HCO3 ABG O2 Saturation ABG Base Excess FiO2 Sodium Potassium Chloride Carbon Dioxide Anion Gap BUN Creatinine Est GFR ( Amer) Est GFR (Non-Af Amer) Glucose Calcium Magnesium Total Bilirubin AST ALT Alkaline Phosphatase Total Protein Albumin Blood Type O POSITIVE Antibody Screen NEGATIVE 06/27/18 10:37 Cerebral Spinal Fluid - Csf Gram Stain - Final 06/26/18 10:10 NT-Pro-B Natriuret Pep 14538 H Impressions: Abdomen/Pelvis CT 06/20/18 22:27 IMPRESSION: New focal area of parenchymal consolidation within the posterior aspect of the right lower lung, image 33 which could be secondary to an acute infectious process/area of pneumonitis. Postobstructive atelectasis/pneumonitis is a consideration. Small right pleural fluid collection, decreased when compared with the prior exam. Partially visualized air within the soft tissues of the upper extremities could be secondary to recent instrumentation. Please correlate. No acute intra-abdominal abnormality. Chest CT 06/20/18 22:27 IMPRESSION: New focal area of parenchymal consolidation within the posterior aspect of the right lower lung, image 33 which could be secondary to an acute infectious process/area of pneumonitis. Postobstructive atelectasis/pneumonitis is a consideration. Small right pleural fluid collection, decreased when compared with the prior exam. Partially visualized air within the soft tissues of the upper extremities could be secondary to recent instrumentation. Please correlate. No acute intra-abdominal abnormality. Head CT 06/23/18 00:00 IMPRESSION: No acute intracranial findings. Head MRI 06/24/18 13:39 IMPRESSION: ATROPHY AND CHRONIC MICRO-VASCULAR ISCHEMIC CHANGES. OTHERWISE NORMAL MRI OF THE BRAIN WITHOUT INTRAVENOUS GADOLINIUM CONTRAST. EVIDENCE OF ACUTE STROKE: NO. Guidance Fluoroscopy 06/27/18 00:00 IMPRESSION: Lumbar puncture under fluoroscopy. No immediate complication. KUB X-Ray 06/27/18 00:00 IMPRESSION: Tip of the enteric tube likely in the proximal stomach with the sidehole near the GE junction. Mild gaseous distention of the colon copyright 2011 [employer]- All Rights Reserved Lumbar Puncture 06/27/18 00:00 IMPRESSION: Lumbar puncture under fluoroscopy. No immediate complication. Chest X-Ray 06/29/18 06:00 IMPRESSION: No significant interval change. Findings as noted above Assessment & Plan - Diagnosis (1) Hyponatremia Is this a current diagnosis for this admission?: Yes Plan: Continues to improve every day almost at normal level. Continue current management. (2) MARY LOU (acute kidney injury) Is this a current diagnosis for this admission?: Yes Plan: Much improved and almost at baseline. (3) Acute respiratory failure with hypoxia and hypercapnia Is this a current diagnosis for this admission?: Yes Plan: Had a successful extubation this afternoon. Currently stable. (4) Hypokalemia Is this a current diagnosis for this admission?: Yes Plan: Resolved. (5) Pneumococcal bacteremia Is this a current diagnosis for this admission?: Yes (6) Septic shock Is this a current diagnosis for this admission?: Yes (7) Anemia Qualifiers: Anemia type: unspecified type Qualified Code(s): D64.9 - Anemia, unspecified Is this a current diagnosis for this admission?: Yes - Time Time with patient: 15-25 minutes
[2018-06-29] MEDS: SERTRALINE HCL 50 MG TABLET PO SCH (23:23)
[2018-06-30] MEDS ORDERED: LORAZEPAM INJ 2 MG/1 ML VIAL ONE (01:46)
[2018-06-30] MEDS ORDERED: LORAZEPAM INJ 2 MG/1 ML VIAL IV ONE (02:00)
[2018-06-30] MEDS: IPRATROPIUM BROMIDE 0.02% NEB 0.5 MG/2.5 ML AMPUL NEB SCH ×4 (02:17→20:38)
[2018-06-30] MEDS: LEVALBUTEROL HCL NEB 1.25 MG/3 ML AMPUL NEB SCH ×4 (02:19→20:38)
[2018-06-30] MEDS: VANCOMYCIN HCL INJ 500 MG VIAL PO SCH ×4 (06:27→23:17)
[2018-06-30 06:29] LABS: ARTERIAL BLOOD H2CO3 1.27 mmol/L (1.05-1.35); ARTERIAL BLOOD HCO3 25.8 mmol/L (20-24); ARTERIAL BLOOD O2 SATURATION 67.9 % (94-98); ARTERIAL BLOOD PCO2 42.2 mmHg (35-45); ARTERIAL BLOOD PH 7.41 (7.35-7.45); ARTERIAL BLOOD TOTAL CO2 27.1 mmol/L (21-25)
[2018-06-30] MEDS: METHYLPREDNISOLONE INJ 125 MG/2 ML SDV IV SCH ×3 (06:30→23:56)
[2018-06-30] MEDS: LEVOTHYROXINE SODIUM 0.112 MG TABLET PO SCH (06:31)
[2018-06-30 06:34] LABS: HEMATOCRIT 27.8 % (36.0-47.0); HEMOGLOBIN 9.7 g/dL (12.0-15.5); MEAN CORPUSCULAR HEMOGLOBIN 30.3 pg (27.0-33.4); MEAN CORPUSCULAR HGB CONC 35.1 g/dL (32.0-36.0); MEAN CORPUSCULAR VOLUME 86 fl (80-97); PLATELET COUNT 142 10^3/uL (150-450); RED BLOOD COUNT 3.22 10^6/uL (3.72-5.28); RED CELL DISTRIBUTION WIDTH 15.8 % (11.5-14.0); WHITE BLOOD COUNT 7.8 10^3/uL (4.0-10.5)
[2018-06-30 06:39] LABS: ALANINE AMINOTRANSFERASE 16 U/L (9-52); ALBUMIN 2.7 g/dL (3.5-5.0); ALKALINE PHOSPHATASE 46 U/L (38-126); ANION GAP 10 (5-19); ASPARTATE AMINO TRANSFERASE 18 U/L (14-36); BILIRUBIN,DIRECT 0.1 mg/dL (0.0-0.4); BILIRUBIN,TOTAL 0.3 mg/dL (0.2-1.3); BLOOD UREA NITROGEN 21 mg/dL (7-20); CALCIUM 8.4 mg/dL (8.4-10.2); CARBON DIOXIDE 25 mmol/L (22-30); CHLORIDE 105 mmol/L (98-107); GLUCOSE 78 mg/dL (75-110); POTASSIUM 3.5 mmol/L (3.6-5.0); SODIUM 140.1 mmol/L (137-145); TOTAL PROTEIN 4.7 g/dL (6.3-8.2)
[2018-06-30 06:45] LABS: ARTERIAL BLOOD FIO2 28%; ARTERIAL BLOOD PO2 35.3 mmHg (80-100)
--- NOTE | 2018-06-30 07:00 | RADIOLOGY REPORT (SQ) ---
EXAM DESCRIPTION: XR CHEST 1 VIEW COMPLETED DATE/TME: 06/30/2018 06:00 CLINICAL HISTORY: 72 years, Female, resp failure COMPARISON: 06/29/2018 chest x-ray NUMBER OF VIEWS: 1 TECHNIQUE: Portable chest LIMITATIONS: None. FINDINGS: Heart size is stable. Interval extubation. Removal of enteric tube. Central venous catheter remains in place. Fullness of the right hilar region, as before. Suspected tiny effusions and/or pleural thickening. No pneumothorax IMPRESSION: Interval extubation and removal of the enteric tube. Other findings are grossly stable copyright 2011 [employer]- All Rights Reserved
[2018-06-30 07:07] LABS: ABSOLUTE LYMPHOCYTES# (MANUAL) 0.4 10^3/uL (0.5-4.7); ABSOLUTE MONOCYTES # (MANUAL) 0.2 10^3/uL (0.1-1.4); ABSOLUTE NEUTROPHILS# (MANUAL) 7.3 10^3/uL (1.7-8.2); ANISOCYTOSIS 1+; BASOPHILS % (MANUAL) 0 % (0-2); EOSINOPHILS % (MANUAL) 0 % (0-6); LYMPHOCYTES % (MANUAL) 5 % (13-45); MONOCYTES % (MANUAL) 2 % (3-13); PLATELET COMMENT ADEQUATE; POLYCHROMASIA 1+; SEGMENTED NEUTROPHILS % (MAN) 93 % (42-78); TOTAL CELLS COUNTED 100
--- NOTE | 2018-06-30 08:22 | PDOC PROGRESS REPORT ---
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 CT scan of the chest shows right -sided infiltrate with an elevated WBC and she was started on empiric antibiotic therapy. Later on she was transferred to ICU for possible sepsis and pneumonia. She was on pressors and broad-spectrum antibiotics she is off the pressors right now. Further recommendations of the ID sales enablement consultant Dr. Moody Bactrim IV vancomycin and IV levofloxacin was discontinued, presently patient is on IV ceftriaxone p.o. vancomycin and also on ampicillin. Patient is running low-grade fever. She was presently intubated. She is hypotensive at this time blood pressure is 75/45 not on pressors getting IV fluids normal saline at 75 cc/h 06/27/2018 patient is still intubated on 30% oxygen pulse ox is around 97-98% patient is alert try to respond to verbal commands no acute events over the last 24 hours. 06/28/2018 pt is still intubated on SIMV 450 tidal volume PEEP of 5 oh to 30% SPO2 is 95%. The weaning process was going to start today will believe patient may be able to extubated by tomorrow. Issues or concerns reported by the nurses from last night patient is on Versed for sedation. And is afebrile for the last 24-36 hours. 06/29/2018 patient is still intubated. She is on FiO2 of 21%. Pulse ox's are 94-96%. Still on Versed drip for sedation. Levophed was turned off last night and blood pressures are stable. Acute events in the last 24 hours. Started on PEG feeding yesterday. She had a bowel movements. And is still on p.o. vancomycin for C. difficile. On contact isolation. Patient is afebrile in the last 24 hours. 06/30/2018 and is successfully extubated yesterday. No acute events overnight. Except patient was agitated and anxious last night. She received Ativan. He was done today it looks mixed. We are going to repeat the ABG. Patient comfortably in the bed. In distress. Patient still on contact precautions because repeat C. difficile came back positive. Reason For Visit: SEPSIS DIABETES, COPD EXACERBATION PNEUMONIA Physical Exam Vital Signs: Temp Pulse Resp BP Pulse Ox 98.6 F 113 H 21 H 122/71 100 06/30/18 05:39 06/30/18 02:19 06/30/18 04:44 06/30/18 02:53 06/30/18 04:44 Intake & Output 06/29/18 06/30/18 07/01/18 06:59 06:59 06:59 Intake Total 576 395 Output Total 1605 1295 Balance -1029 -900 Weight 81.3 kg 83 kg General appearance: PRESENT: no acute distress Head exam: PRESENT: atraumatic Eye exam: PRESENT: PERRLA Mouth exam: PRESENT: moist Neck exam: ABSENT: carotid bruit, JVD, lymphadenopathy, thyromegaly Respiratory exam: PRESENT: clear to auscultation jeff, unlabored Cardiovascular exam: PRESENT: tachycardia GI/Abdominal exam: PRESENT: normal bowel sounds, soft. ABSENT: tenderness Neurological exam: PRESENT: alert, awake, oriented to person, oriented to place , oriented to time, oriented to situation, CN II-XII grossly intact. ABSENT: motor sensory deficit Psychiatric exam: PRESENT: appropriate affect, normal mood. ABSENT: homicidal ideation, suicidal ideation Results Laboratory Results: 06/30/18 06:00 06/30/18 06:00 06/29/18 06/29/18 06/30/18 08:00 14:45 06:00 WBC 5.6 RBC 3.03 L Hgb 9.1 L Hct 26.2 L MCV 86 MCH 30.1 MCHC 34.9 RDW 15.5 H Plt Count 134 L Seg Neutrophils % Not Reportable Lymphocytes % Not Reportable Monocytes % Not Reportable Eosinophils % Not Reportable Basophils % Not Reportable Absolute Neutrophils Not Reportable Absolute Lymphocytes Not Reportable Absolute Monocytes Not Reportable Absolute Eosinophils Not Reportable Absolute Basophils Not Reportable Carbonic Acid 1.27 HCO3/H2CO3 Ratio 20:1 ABG pH 7.41 ABG pCO2 42.2 ABG pO2 35.3 L* ABG HCO3 25.8 H ABG O2 Saturation 67.9 L ABG Base Excess 1.0 FiO2 28% Sodium Potassium Chloride Carbon Dioxide Anion Gap BUN Creatinine Est GFR ( Amer) Est GFR (Non-Af Amer) Glucose Calcium Magnesium Total Bilirubin AST ALT Alkaline Phosphatase Total Protein Albumin Blood Type O POSITIVE Antibody Screen NEGATIVE 06/30/18 06/30/18 06:00 06:00 WBC 7.8 RBC 3.22 L Hgb 9.7 L Hct 27.8 L MCV 86 MCH 30.3 MCHC 35.1 RDW 15.8 H Plt Count 142 L Seg Neutrophils % Not Reportable Lymphocytes % Not Reportable Monocytes % Not Reportable Eosinophils % Not Reportable Basophils % Not Reportable Absolute Neutrophils Not Reportable Absolute Lymphocytes Not Reportable Absolute Monocytes Not Reportable Absolute Eosinophils Not Reportable Absolute Basophils Not Reportable Carbonic Acid HCO3/H2CO3 Ratio ABG pH ABG pCO2 ABG pO2 ABG HCO3 ABG O2 Saturation ABG Base Excess FiO2 Sodium 140.1 Potassium 3.5 L Chloride 105 Carbon Dioxide 25 Anion Gap 10 BUN 21 H Creatinine 1.17 Est GFR ( Amer) 55 L Est GFR (Non-Af Amer) 45 L Glucose 78 Calcium 8.4 Magnesium 2.1 Total Bilirubin 0.3 AST 18 ALT 16 Alkaline Phosphatase 46 Total Protein 4.7 L Albumin 2.7 L Blood Type Antibody Screen 06/27/18 10:37 Cerebral Spinal Fluid - Csf Gram Stain - Final 06/27/18 10:37 Cerebral Spinal Fluid - Csf CSF Culture - Final NO GROWTH 3 DAYS 06/26/18 10:10 NT-Pro-B Natriuret Pep 55141 H Impressions: Abdomen/Pelvis CT 06/20/18 22:27 IMPRESSION: New focal area of parenchymal consolidation within the posterior aspect of the right lower lung, image 33 which could be secondary to an acute infectious process/area of pneumonitis. Postobstructive atelectasis/pneumonitis is a consideration. Small right pleural fluid collection, decreased when compared with the prior exam. Partially visualized air within the soft tissues of the upper extremities could be secondary to recent instrumentation. Please correlate. No acute intra-abdominal abnormality. Chest CT 06/20/18 22:27 IMPRESSION: New focal area of parenchymal consolidation within the posterior aspect of the right lower lung, image 33 which could be secondary to an acute infectious process/area of pneumonitis. Postobstructive atelectasis/pneumonitis is a consideration. Small right pleural fluid collection, decreased when compared with the prior exam. Partially visualized air within the soft tissues of the upper extremities could be secondary to recent instrumentation. Please correlate. No acute intra-abdominal abnormality. Head CT 06/23/18 00:00 IMPRESSION: No acute intracranial findings. Head MRI 06/24/18 13:39 IMPRESSION: ATROPHY AND CHRONIC MICRO-VASCULAR ISCHEMIC CHANGES. OTHERWISE NORMAL MRI OF THE BRAIN WITHOUT INTRAVENOUS GADOLINIUM CONTRAST. EVIDENCE OF ACUTE STROKE: NO. Guidance Fluoroscopy 06/27/18 00:00 IMPRESSION: Lumbar puncture under fluoroscopy. No immediate complication. KUB X-Ray 06/27/18 00:00 IMPRESSION: Tip of the enteric tube likely in the proximal stomach with the sidehole near the GE junction. Mild gaseous distention of the colon copyright 2010 [employer]- All Rights Reserved Lumbar Puncture 06/27/18 00:00 IMPRESSION: Lumbar puncture under fluoroscopy. No immediate complication. Chest X-Ray 06/30/18 06:00 IMPRESSION: Interval extubation and removal of the enteric tube. Other findings are grossly stable copyright 2010 [employer]- All Rights Reserved Assessment & Plan - Diagnosis (1) Acute respiratory failure with hypoxia and hypercapnia Is this a current diagnosis for this admission?: Yes Plan: 06/26/2018 acute respiratory failure with hypoxia status post intubation, right lower infiltration in the chest x-ray is improving. Blood cultures are negative. Check pulmonology for consultation. Latest ABG today pH is 7.3 piece CO2 41 PO2 76% bicarb is 20 this is is done while the patient is intubated. I am planning to change the sedation from propofol to Versed today because of the low blood pressures. 06/27/2018-patient was seen by the pan shaker Dr. Alvarez. Patient pulse oxes are much better compared to yesterday. And is now on 30% oxygen. On SIMV with tidal volume of 450 respiratory rate 14 PEEP of 5. Weaning process was started from yesterday. Her sedation she is on propofol. Continue to follow the pan shaker recommendations. ABG today improved compared to yesterday pH is 7.35 PCO2 41 PO2 82.3 bicarb is 22. 06/28/2018 no acute changes in the last 24 hours and is on SMV still intubated pulse ox is 96%. Pulmonology is following the patient. Weaning process is going to be started from today. Patient is on PEEP of 5. BG today pH is 7.47 PCO2 33 PO2 61, bicarb is 23. This is on room air. Hypercapnia is resolving. it may Improve her mental status. 06/29/2018 patient is still intubated pulse ox is 94-96% on FiO2 21%. ABG today pH is 7.47 PCO2 35.5 p.o. to 68 bicarb is 25. Hypercapnia resolved. Patient was weaned off the vent for a few hours last night. Probably we may be able to extubate her today. Pulmonary is on board. 06/30/2018 patient was successfully extubated yesterday. On 8 L oxygen patient pulse ox is around 100%. ABG was done this morning which looks mixed pH is 7.41 /PCO2 42/PO2 35 bicarb is 25.8. Patient is on DuoNeb nebulizations every 4 as needed and IV Solu-Medrol 125 mg every 12 hours. After extubation patient developed stridor yesterday and it was resolved after giving IV Solu-Medrol. Pulmonary is following the patient. Chest x-ray shows fullness in the right hilar area which was stable for the last several days. The blood cultures are negative. (2) Altered mental status Qualifiers: Altered mental status type: delirium Qualified Code(s): R41.0 - Disorientation, unspecified Is this a current diagnosis for this admission?: Yes Plan: 06/27/2018 patient is going for LP today. Altered mental status may be secondary to metabolic causes versus infectious causes. Patient right now on ceftriaxone. And also on the p.o. vancomycin and sent for C. difficile. Patient is off the DVT prophylaxis for possible LP around 10:00 today. In my opinion her mental status is improving. 06/28/2018 patient had LP yesterday the cell count is 0. WBC is seen. culktures pending. Per ID recommendations I stopped IV ceftriaxone. She is only on p.o. Vanco sent for C. difficile. 06/29/2018 blood puncture was done cell count is 0 and culture after 4 stays no growth. Patient is afebrile for the last 24 hours. And is only on p.o. vancomycin for C. difficile. Altered mental status may be secondary to infectious cause/versus metabolic causes. Probably her mental status will improve with physical condition. MRI of the brain was negative. 06/30/2018. Lumbar puncture culture no growth. Patient is afebrile today's temperature is 98.6. Patient altered mental status during the hospital stay may be secondary to infectious cause/metabolic cause. Altered mental status resolving. Patient is comfortably in the bed communicating okay. (3) Pneumococcal bacteremia Is this a current diagnosis for this admission?: Yes Plan: 06/26/2018-patient is presently on IV ceftriaxone and ampicillin. Latest blood cultures are negative. The blood cultures from 06/21/2018 indicates MRSA with strep pneumonia. Following the ID recommendations. The MRI of the brain rule out any acute changes. Patient is still having the low-grade. fever. The plan is to continue the present antibiotic therapy and follow the further recommendations from Dr. Garcia. We are planning to do the daily follow-up chest x-rays. 06/27/2018. It is on IV ceftriaxone. As per the ID recommendations, ampicillin was discontinued. His blood cultures are negative. She is afebrile. Chest x-ray report from yesterday indicating improvement in right lower base aeration. It is presently on IV ceftriaxone. 06/28/2018 as per ID recommendations IV ceftriaxone is discontinued. Blood cultures are negative. LP came back negative so far. Repeat chest x-ray yesterday indicating persistent right perihilar banding/consolidation. Patient is afebrile in the last 24-36 hours. Patient is on Levophed 2 mics and the latest blood pressure is 113/70. She is off the IV fluids. 06/29/2018 and is off the antibiotics for the last 48 hours afebrile. WBC is 4.7. CSF culture no growth. Chest x-ray unchanged for the last 48 hours. Cultures are negative. 06/30/2018 patient is off the antibiotics for the last 72 hours the only antibiotic she is on p.o. vancomycin for C. difficile positive. Blood cultures are negative CSF culture is negative. Chest x-ray stable. (4) Septic shock Is this a current diagnosis for this admission?: Yes Plan: 06/26/2018-blood cultures from 1120 2017+ for strep pneumonia sputum cultures from 1121 2017+ for MRSA and the latest blood cultures are negative. Patient is presently on ampicillin 2 grams IV every 4 hours and also on ceftriaxone 2 g IV daily. Patient is hypotensive this morning blood pressure 75/45 and IV fluids normal saline running at 75 cc/h I requested the nurse to give to 50 cc bolus of normal saline and also put the order for Levophed to titrate to improve the blood pressures doing the gentle hydration because of the patient's underlying history of congestive heart failure. 06/27/2018-is afebrile. Patient is presently on IV normal saline 50 cc/h on she is on Levophed. Pressure is 122/80. I discontinued IV fluids from today. 06/28/2018 patient's blood pressures are gradually improving latest blood pressure is 113/60 on 2 mics of Levophed ,off the IV fluids afebrile blood cultures are negative. Septic shock is resolving. 06/29/2018 patient blood pressure is 119/62 today. off Levophed from last night. After IV fluids. Cultures are negative. CSF culture is negative. septic shock is resolved. 06/30/2018 patient's blood pressure today is 122/71 she is off pressors, she is off IV fluids. Afebrile. Septic shock resolved. Blood cultures are negative. (5) Hyponatremia Is this a current diagnosis for this admission?: Yes Plan: 06/26/2018 patient's sodium level is 124.7 today, on admission his it is around 141 there is a gradual and significant drop of sodiums in the last 1248 hrs. did drop his sodium despite the patient is getting normal saline at 75 cc/h. The urinary output in the last 24 hours is 800 cc and input is to around 2.4 L. Because of the significant drop in sodium and requesting a nephrology consult. Patient's creatinine is 1.56 stable. We are going to continue to closely monitor the sodium levels. 06/27/2018 latest sodium levels is 126.7 nephrology was consulted waiting for urinary sodium and urine sodium osmolality. His latest creatinine is 1.62. Going to start her on tube feeding from today. We will continue to follow the nephrology recommendations. 2017 serum sodium is 134, almost back to normal at nephrology is following the case for hyponatremia. To follow the nephrology recommendations. 06/29/2018 serum sodium today is 135. we are Following the nephrology consult recommendations. Hyponatremia resolved. 06/30/2018 nephrology consult was called for sodium of 124., 3 days ago and today sodium is 140 hyponatremia is resolved. (6) C. difficile colitis Is this a current diagnosis for this admission?: Yes Plan: 06/26/2018-cultures were positive for C. difficile and on p.o. vancomycin and contact precautions. We will continue the p.o. vancomycin. 06/27/2018 today's plan is to continue p.o. vancomycin for C. difficile. She is on contact precautions. 06/28/2018 patient is on p.o. vancomycin for C. difficile. Patient does not have any bowel movement for the last 4 days. May be secondary to lack of nutrition based on the fact that she is n.p.o. Patient was given enema yesterday without any bowel movement. 06/29/2018 patient is on p.o. vancomycin for C. difficile today is the ninth day we are planning to repeat the C. difficile PCR today. If it is negative we will stop the p.o. vancomycin. 06/30/2018 repeat C. difficile came back positive yesterday. Plan to continue p.o. vancomycin. (7) CHF (congestive heart failure) Qualifiers: Heart failure type: diastolic Heart failure chronicity: acute on chronic Qualified Code(s): I50.33 - Acute on chronic diastolic (congestive) heart failure Is this a current diagnosis for this admission?: Yes Plan: 06/26/2018 patient has history of congestive heart failure and despite being the low blood pressures. Given the gentle hydration to prevent any fluid overload. If necessary we can to start her on pressors. I am going to request for the echocardiogram. 06/27/2018 has history of CHF due to concerns about volume overload we are giving her gentle hydration due to the fact that blood pressures are better we plan to discontinue IV fluids today. Echocardiogram was done yesterday EF is 65 %. Is a grade 1 / 4 mild diastolic dysfunction. Patient is not in fluid overload. Chest was clear. 06/28/2018 the echocardiogram done EF is 65% grade 1/4 mild diastolic dysfunction chest was clear but she has 2+ pedal edema. She is off the IV fluids. 06/29/2018 echocardiogram EF is 65% with mild diastolic dysfunction. Pedal edema resolved. Evidence of fluid overload on examination today. 06/30/2018 echocardiogram with a left 65% with mild diastolic dysfunction and chest examination there is no edema pedal edema is also resolved. (8) Hypokalemia Is this a current diagnosis for this admission?: Yes Plan: 06/27/2018 proclaim is resolved latest potassium level is 4.1. Today's labs are pending. 06/28/2018 potassium level today is 3.3 going to give her 40 mEq of potassium liquid via NG tube. 06/29/2018 potassium level today is 4.0 hypokalemia is resolved. 06/30/2018 potassium level is 3.5 today I am going to give a small dose of p.o. potassium. (9) Hypokalemia Is this a current diagnosis for this admission?: Yes (10) Diabetes mellitus type 2 in obese Is this a current diagnosis for this admission?: Yes Plan: 06/26/2018-patient's blood sugars are running low latest blood sugar is around 80. She is n.p.o. and intubated. Patient is to be on metformin at home it was on hold during this hospital stay. 06/27/2018 patient is n.p.o. for the last 3 days we are going to start her on her tube feedings today and we are going to start her on regular insulin sliding scale every 6 hours. Latest blood sugar is 137. 06/28/2018 it is still n.p.o. she has an NG tube, we are going to try to start her on NG tube feedings from today. Latest blood sugars is 200. pt is on sliding scale. 06/29/2018 PEG feeding was started at low rate yesterday. We checked the blood sugars with sliding scale. His blood sugar is 142. 06/30/2018 after the extubation NG tube was removed she is on soft diet. She is on sliding scale insulin at this. Blood sugar is 73. (11) COPD exacerbation Is this a current diagnosis for this admission?: Yes Plan: 06/26/2018-patient is admitted for fever and pneumonia status post intubation. Culture positive for strep pneumonia. It is on ceftriaxone and ampicillin. 06/27/2018 patient is still intubated no wheezing no crepitations on examination. There is a possibility of extubation in the next 24-48 hours. She is presently on a ceftriaxone. Chest x-ray shows improved aeration in the right lung base. 06/28/2018 no wheezing, no crepitations heard. Patient is still intubated probable extubation tomorrow. Chest x-ray shows persistent right hilar banding/ consolidation. We will continue the present management. Patient is on Xopenex nebulizations every 4 as needed. 06/29/2018 examination no wheezing no crepitations heard. Transmitted breath sounds were heard. Patient is on IV Solu-Medrol 125 mg every 8 hours, I decreased the frequency to every 12 hours today. CoPD exacerbation resolved resolved in my opinion. 06/30/2018 COPD exacerbation resolved chest was clear to auscultation. Patient is on IV Solu-Medrol 125 mg every 12 hours. I am going to decrease it to 6-2.5 mg every 12 hrs. (12) Hypomagnesemia Is this a current diagnosis for this admission?: Yes Plan: 06/26/2018 latest magnesium level is 1.5 planning to give her magnesium supplementation 2 g IV 1 dose. 06/27/2018 and received 2 g of IV magnesium yesterday. Today's magnesium levels are pending. 06/28/2018 today's magnesium level is 2.1. Hypomagnesemia is resolved. 06/29/2018 latest magnesium level is 2.1. 06/30/2018 latest magnesium level is 2.1 hypomagnesia is resolved. (13) Encephalopathy Is this a current diagnosis for this admission?: Yes Plan: 06/26/2018-the cause for her altered mental status/and can follow-up with may be secondary to either infectious process metabolic causes latest sodium is 124. MRI of the brain was done no acute changes. 06/27/2018 she is going for LP today. MRI of the brain was done during this hospital stay with no acute changes. Patient is on IV ceftriaxone. 06/28/2018 LP was done yesterday, the cell count is 0. encephalopathy may be secondary to infectious cause versus metabolic reasons. pt is off the IV antibiotics. 06/29/2018 EEG shows abnormalities but no seizure activity was noticed. As mentioned above a lumbar puncture was negative so far. Encephalopathy may be secondary to infectious/metabolic causes. 06/30/2018 EEG shows abnormalities but no seizure activity was noted MRI of the brain was negative for acute changes. Thank of follow-up with is resolving. On examination patient able to communicate reasonably. (14) Anemia Qualifiers: Anemia type: unspecified type Qualified Code(s): D64.9 - Anemia, unspecified Is this a current diagnosis for this admission?: Yes Plan: 06/26/2018 patient has history of chronic anemia. Her hemoglobin is stable around 8.1. 06/27/2018 patient's hemoglobin is status between 8.1-8.3. 06/28/2018 latest hemoglobin is 7.7, her baseline is around 8.1-8.3 I am going to repeat the CBC tomorrow if necessary we will arrange for 1 unit of blood transfusion. 06/29/2018 and hemoglobin dropped to 7.3 today. We are going to type and screen and transfuse 1 unit of PRBC. The CBC posttransfusion. 06/30/2018 patient's hemoglobin was 7.3 yesterday status post 1 unit of blood transfusion, repeat hemoglobin is 9.7 today. (15) GERD (gastroesophageal reflux disease) Qualifiers: Esophagitis presence: esophagitis presence not specified Qualified Code(s) : K21.9 - Gastro-esophageal reflux disease without esophagitis Is this a current diagnosis for this admission?: Yes Plan: 06/26/2018 plan for today is to continue PPIs. 06/27/2018 for GI prophylaxis with planning to continue PPIs. 06/28/2018 for GI prophylaxis we will continue the PPIs. 06/29/2018 for GI prophylaxis. Patient is on PPIs I am going to switch to p.o. medications today. (16) Hypocalcemia Is this a current diagnosis for this admission?: Yes Plan: 06/27/2018 serum calcium levels are 7.3. Albumin min is 2.2. Calcium is around 8.4 to 8.6. 06/28/2018 serum calcium is 7.4, serum albumin is 2.2. Corrected calcium is around 8.5. 06/29/2018, calcium is 7.9 and albumin is 2.5. Corrected calcium may be around 8.8. She is getting albumin 25 mg 2 vials on daily basis. While 07/2017 serum calcium level is 8.4 today. Albumin is 2.7. Hypercalcemia is resolved. - Time Time Spent with patient: 25-34 minutes Medications reviewed and adjusted accordingly: Yes
[2018-06-30] MEDS: TIOTROPIUM BROMIDE DPI 5 CAP/KIT (18 MCG/CAP) IH SCH (09:02)
[2018-06-30] MEDS: FAMOTIDINE 20 MG TABLET PO SCH ×2 (09:02→23:15)
[2018-06-30] MEDS: FLUTICASONE NASAL SPRAY 50 MCG/SPRY 120 SPRAY/16 GM NASL SCH ×2 (09:03→23:15)
[2018-06-30] MEDS: INSULIN REG, HUMAN 100 UNIT/ML 3 ML VIAL (PYX) SUBCUT PRN (14:20)
[2018-06-30 14:59] LABS: ARTERIAL BLOOD BASE EXCESS 0.7 mmol/L; ARTERIAL BLOOD H2CO3 1.26 mmol/L (1.05-1.35); ARTERIAL BLOOD HCO3 25.5 mmol/L (20-24); ARTERIAL BLOOD O2 SATURATION 99.6 % (94-98); ARTERIAL BLOOD PCO2 41.7 mmHg (35-45); ARTERIAL BLOOD PO2 256.9 mmHg (80-100); ARTERIAL BLOOD TOTAL CO2 26.8 mmol/L (21-25)
[2018-06-30 15:00] LABS: ARTERIAL BLOOD FIO2 ROOM AIR
[2018-06-30] MEDS: SERTRALINE HCL 50 MG TABLET PO SCH (23:16)
[2018-07-01] MEDS: LEVALBUTEROL HCL NEB 1.25 MG/3 ML AMPUL NEB SCH ×4 (01:42→21:29)
[2018-07-01] MEDS: IPRATROPIUM BROMIDE 0.02% NEB 0.5 MG/2.5 ML AMPUL NEB SCH ×4 (01:42→21:29)
[2018-07-01] MEDS: VANCOMYCIN HCL INJ 500 MG VIAL PO SCH ×4 (03:53→21:20)
[2018-07-01 05:29] LABS: ARTERIAL BLOOD BASE EXCESS 1.5 mmol/L; ARTERIAL BLOOD H2CO3 1.29 mmol/L (1.05-1.35); ARTERIAL BLOOD HCO3 26.4 mmol/L (20-24); ARTERIAL BLOOD O2 SATURATION 97.5 % (94-98); ARTERIAL BLOOD PCO2 42.7 mmHg (35-45); ARTERIAL BLOOD PH 7.41 (7.35-7.45); ARTERIAL BLOOD PO2 98.7 mmHg (80-100); ARTERIAL BLOOD TOTAL CO2 27.7 mmol/L (21-25); HEMATOCRIT 29.3 % (36.0-47.0); MEAN CORPUSCULAR HGB CONC 34.2 g/dL (32.0-36.0); MEAN CORPUSCULAR VOLUME 88 fl (80-97); PLATELET COUNT 123 10^3/uL (150-450); RED BLOOD COUNT 3.34 10^6/uL (3.72-5.28); RED CELL DISTRIBUTION WIDTH 15.8 % (11.5-14.0); WHITE BLOOD COUNT 8.8 10^3/uL (4.0-10.5)
[2018-07-01 05:30] LABS: ARTERIAL BLOOD FIO2 28%
[2018-07-01 05:43] LABS: ALANINE AMINOTRANSFERASE 23 U/L (9-52); ALBUMIN 2.6 g/dL (3.5-5.0); ALKALINE PHOSPHATASE 45 U/L (38-126); ANION GAP 10 (5-19); ASPARTATE AMINO TRANSFERASE 16 U/L (14-36); BILIRUBIN,DIRECT 0.2 mg/dL (0.0-0.4); BILIRUBIN,TOTAL 0.3 mg/dL (0.2-1.3); BLOOD UREA NITROGEN 21 mg/dL (7-20); CALCIUM 8.4 mg/dL (8.4-10.2); CARBON DIOXIDE 25 mmol/L (22-30); CHLORIDE 107 mmol/L (98-107); GLUCOSE 111 mg/dL (75-110); POTASSIUM 3.9 mmol/L (3.6-5.0); SODIUM 141.8 mmol/L (137-145); TOTAL PROTEIN 4.5 g/dL (6.3-8.2)
[2018-07-01] MEDS: METHYLPREDNISOLONE INJ 125 MG/2 ML SDV IV SCH ×3 (06:15→21:24)
[2018-07-01 06:17] LABS: ABSOLUTE LYMPHOCYTES# (MANUAL) 0.4 10^3/uL (0.5-4.7); ABSOLUTE MONOCYTES # (MANUAL) 0.2 10^3/uL (0.1-1.4); ABSOLUTE NEUTROPHILS# (MANUAL) 8.3 10^3/uL (1.7-8.2); BASOPHILS % (MANUAL) 0 % (0-2); EOSINOPHILS % (MANUAL) 0 % (0-6); LYMPHOCYTES % (MANUAL) 4 % (13-45); MONOCYTES % (MANUAL) 2 % (3-13); SEGMENTED NEUTROPHILS % (MAN) 94 % (42-78); TOTAL CELLS COUNTED 100; TOXIC GRANULATION 1+
[2018-07-01 06:18] LABS: ANISOCYTOSIS SLIGHT; OVALOCYTES SLIGHT; PLATELET COMMENT ADEQUATE; POIKILOCYTOSIS 1+; SCHISTOCYTES 1+; TEAR DROP CELLS 1+
--- NOTE | 2018-07-01 07:00 | RADIOLOGY REPORT (SQ) ---
EXAM DESCRIPTION: XR CHEST 1 VIEW COMPLETED DATE/TME: 07/01/2018 06:00 CLINICAL HISTORY: 72 years, Female, pna COMPARISON: 06/30/2018 chest x-ray NUMBER OF VIEWS: 1 TECHNIQUE: Portable chest LIMITATIONS: None. FINDINGS: Heart size is normal. Central venous catheter in place. Small bibasilar effusions. Streaky opacity in the right perihilar region. Osteopenia. No pneumothorax IMPRESSION: Little interval change copyright 2010 [employer]- All Rights Reserved
--- NOTE | 2018-07-01 09:15 | PDOC PROGRESS REPORT ---
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 CT scan of the chest shows right -sided infiltrate with an elevated WBC and she was started on empiric antibiotic therapy. Later on she was transferred to ICU for possible sepsis and pneumonia. She was on pressors and broad-spectrum antibiotics she is off the pressors right now. Further recommendations of the ID [facility] h[facility] consultant Dr. Moody Bactrim IV vancomycin and IV levofloxacin was discontinued, presently patient is on IV ceftriaxone p.o. vancomycin and also on ampicillin. Patient is running low-grade fever. She was presently intubated. She is hypotensive at this time blood pressure is 75/45 not on pressors getting IV fluids normal saline at 75 cc/h 06/27/2018 patient is still intubated on 30% oxygen pulse ox is around 97-98% patient is alert try to respond to verbal commands no acute events over the last 24 hours. 06/28/2018 pt is still intubated on SIMV 450 tidal volume PEEP of 5 oh to 30% SPO2 is 95%. The weaning process was going to start today will believe patient may be able to extubated by tomorrow. Issues or concerns reported by the nurses from last night patient is on Versed for sedation. And is afebrile for the last 24-36 hours. 06/29/2018 patient is still intubated. She is on FiO2 of 21%. Pulse ox's are 94-96%. Still on Versed drip for sedation. Levophed was turned off last night and blood pressures are stable. Acute events in the last 24 hours. Started on PEG feeding yesterday. She had a bowel movements. And is still on p.o. vancomycin for C. difficile. On contact isolation. Patient is afebrile in the last 24 hours. 06/30/2018 and is successfully extubated yesterday. No acute events overnight. Except patient was agitated and anxious last night. She received Ativan. He was done today it looks mixed. We are going to repeat the ABG. Patient comfortably in the bed. In distress. Patient still on contact precautions because repeat C. difficile came back positive. 07/01/2018-acute events in the last 24 hours. Patient is comfortably sleeping on BiPAP this morning. Recently patient's C. difficile came back positive. Is on p.o. vancomycin. She is having occasional loose stools. Afebrile in the last 24 hours. She still on contact precautions. Think she is stable enough to go to the [facility]. Reason For Visit: SEPSIS DIABETES, COPD EXACERBATION PNEUMONIA Physical Exam Vital Signs: Temp Pulse Resp BP Pulse Ox 98.4 F 86 17 137/68 H 98 07/01/18 08:00 07/01/18 08:00 07/01/18 08:00 07/01/18 08:00 07/01/18 08:00 Intake & Output 06/30/18 07/01/18 07/02/18 06:59 06:59 06:59 Intake Total 395 240 Output Total 1295 620 60 Balance -900 -380 -60 Weight 83 kg 82.6 kg General appearance: PRESENT: no acute distress Head exam: PRESENT: atraumatic Eye exam: PRESENT: PERRLA Neck exam: ABSENT: carotid bruit, JVD, lymphadenopathy, thyromegaly Respiratory exam: PRESENT: wheezes, other - And is on BiPAP at night. On examination mild wheezing at the bases. Cardiovascular exam: PRESENT: tachycardia Pulses: PRESENT: normal dorsalis pedis pul GI/Abdominal exam: PRESENT: normal bowel sounds, soft. ABSENT: tenderness Neurological exam: PRESENT: alert, awake, oriented to person, oriented to place , oriented to time, oriented to situation, CN II-XII grossly intact. ABSENT: motor sensory deficit Psychiatric exam: PRESENT: appropriate affect, normal mood. ABSENT: homicidal ideation, suicidal ideation Results Laboratory Results: 07/01/18 05:20 07/01/18 05:20 06/30/18 07/01/18 07/01/18 14:39 05:20 05:20 WBC 8.8 RBC 3.34 L Hgb 10.0 L Hct 29.3 L MCV 88 MCH 30.0 MCHC 34.2 RDW 15.8 H Plt Count 123 L Seg Neutrophils % Not Reportable Lymphocytes % Not Reportable Monocytes % Not Reportable Eosinophils % Not Reportable Basophils % Not Reportable Absolute Neutrophils Not Reportable Absolute Lymphocytes Not Reportable Absolute Monocytes Not Reportable Absolute Eosinophils Not Reportable Absolute Basophils Not Reportable Carbonic Acid 1.26 1.29 HCO3/H2CO3 Ratio 20:1 20:1 ABG pH 7.40 7.41 ABG pCO2 41.7 42.7 ABG pO2 256.9 H 98.7 ABG HCO3 25.5 H 26.4 H ABG O2 Saturation 99.6 H 97.5 ABG Base Excess 0.7 1.5 FiO2 ROOM AIR 28% Sodium Potassium Chloride Carbon Dioxide Anion Gap BUN Creatinine Est GFR ( Amer) Est GFR (Non-Af Amer) Glucose Calcium Magnesium Total Bilirubin AST ALT Alkaline Phosphatase Total Protein Albumin 07/01/18 05:20 WBC RBC Hgb Hct MCV MCH MCHC RDW Plt Count Seg Neutrophils % Lymphocytes % Monocytes % Eosinophils % Basophils % Absolute Neutrophils Absolute Lymphocytes Absolute Monocytes Absolute Eosinophils Absolute Basophils Carbonic Acid HCO3/H2CO3 Ratio ABG pH ABG pCO2 ABG pO2 ABG HCO3 ABG O2 Saturation ABG Base Excess FiO2 Sodium 141.8 Potassium 3.9 Chloride 107 Carbon Dioxide 25 Anion Gap 10 BUN 21 H Creatinine 0.93 Est GFR ( Amer) > 60 Est GFR (Non-Af Amer) 59 L Glucose 111 H Calcium 8.4 Magnesium 2.0 Total Bilirubin 0.3 AST 16 ALT 23 Alkaline Phosphatase 45 Total Protein 4.5 L Albumin 2.6 L 06/27/18 10:37 Cerebral Spinal Fluid - Csf Gram Stain - Final 06/27/18 10:37 Cerebral Spinal Fluid - Csf CSF Culture - Final NO GROWTH 3 DAYS 06/26/18 10:10 NT-Pro-B Natriuret Pep 77743 H Impressions: Abdomen/Pelvis CT 06/20/18 22:27 IMPRESSION: New focal area of parenchymal consolidation within the posterior aspect of the right lower lung, image 33 which could be secondary to an acute infectious process/area of pneumonitis. Postobstructive atelectasis/pneumonitis is a consideration. Small right pleural fluid collection, decreased when compared with the prior exam. Partially visualized air within the soft tissues of the upper extremities could be secondary to recent instrumentation. Please correlate. No acute intra-abdominal abnormality. Chest CT 06/20/18 22:27 IMPRESSION: New focal area of parenchymal consolidation within the posterior aspect of the right lower lung, image 33 which could be secondary to an acute infectious process/area of pneumonitis. Postobstructive atelectasis/pneumonitis is a consideration. Small right pleural fluid collection, decreased when compared with the prior exam. Partially visualized air within the soft tissues of the upper extremities could be secondary to recent instrumentation. Please correlate. No acute intra-abdominal abnormality. Head CT 06/23/18 00:00 IMPRESSION: No acute intracranial findings. Head MRI 06/24/18 13:39 IMPRESSION: ATROPHY AND CHRONIC MICRO-VASCULAR ISCHEMIC CHANGES. OTHERWISE NORMAL MRI OF THE BRAIN WITHOUT INTRAVENOUS GADOLINIUM CONTRAST. EVIDENCE OF ACUTE STROKE: NO. Guidance Fluoroscopy 06/27/18 00:00 IMPRESSION: Lumbar puncture under fluoroscopy. No immediate complication. KUB X-Ray 06/27/18 00:00 IMPRESSION: Tip of the enteric tube likely in the proximal stomach with the sidehole near the GE junction. Mild gaseous distention of the colon copyright 2010 [employer]- All Rights Reserved Lumbar Puncture 06/27/18 00:00 IMPRESSION: Lumbar puncture under fluoroscopy. No immediate complication. Chest X-Ray 07/01/18 06:00 IMPRESSION: Little interval change copyright 2010 [employer]- All Rights Reserved Assessment & Plan - Diagnosis (1) Altered mental status Qualifiers: Altered mental status type: delirium Qualified Code(s): R41.0 - Disorientation, unspecified Is this a current diagnosis for this admission?: Yes Plan: 06/27/2018 patient is going for LP today. Altered mental status may be secondary to metabolic causes versus infectious causes. Patient right now on ceftriaxone. And also on the p.o. vancomycin and sent for C. difficile. Patient is off the DVT prophylaxis for possible LP around 10:00 today. In my opinion her mental status is improving. 06/28/2018 patient had LP yesterday the cell count is 0. WBC is seen. culktures pending. Per ID recommendations I stopped IV ceftriaxone. She is only on p.o. Vanco sent for C. difficile. 06/29/2018 blood puncture was done cell count is 0 and culture after 4 stays no growth. Patient is afebrile for the last 24 hours. And is only on p.o. vancomycin for C. difficile. Altered mental status may be secondary to infectious cause/versus metabolic causes. Probably her mental status will improve with physical condition. MRI of the brain was negative. 06/30/2018. Lumbar puncture culture no growth. Patient is afebrile today's temperature is 98.6. Patient altered mental status during the hospital stay may be secondary to infectious cause/metabolic cause. Altered mental status resolving. Patient is comfortably in the bed communicating okay. 07/01/2018. Patient altered mental status is resolved. I think she is back to baseline. (2) Acute respiratory failure with hypoxia and hypercapnia Is this a current diagnosis for this admission?: Yes Plan: 06/26/2018 acute respiratory failure with hypoxia status post intubation, right lower infiltration in the chest x-ray is improving. Blood cultures are negative. Check pulmonology for consultation. Latest ABG today pH is 7.3 piece CO2 41 PO2 76% bicarb is 20 this is is done while the patient is intubated. I am planning to change the sedation from propofol to Versed today because of the low blood pressures. 06/27/2018-patient was seen by the mail deliverer Dr. Alvarez. Patient pulse oxes are much better compared to yesterday. And is now on 30% oxygen. On SIMV with tidal volume of 450 respiratory rate 14 PEEP of 5. Weaning process was started from yesterday. Her sedation she is on propofol. Continue to follow the mail deliverer recommendations. ABG today improved compared to yesterday pH is 7.35 PCO2 41 PO2 82.3 bicarb is 22. 06/28/2018 no acute changes in the last 24 hours and is on SMV still intubated pulse ox is 96%. Pulmonology is following the patient. Weaning process is going to be started from today. Patient is on PEEP of 5. BG today pH is 7.47 PCO2 33 PO2 61, bicarb is 23. This is on room air. Hypercapnia is resolving. it may Improve her mental status. 06/29/2018 patient is still intubated pulse ox is 94-96% on FiO2 21%. ABG today pH is 7.47 PCO2 35.5 p.o. to 68 bicarb is 25. Hypercapnia resolved. Patient was weaned off the vent for a few hours last night. Probably we may be able to extubate her today. Pulmonary is on board. 06/30/2018 patient was successfully extubated yesterday. On 8 L oxygen patient pulse ox is around 100%. ABG was done this morning which looks mixed pH is 7.41 /PCO2 42/PO2 35 bicarb is 25.8. Patient is on DuoNeb nebulizations every 4 as needed and IV Solu-Medrol 125 mg every 12 hours. After extubation patient developed stridor yesterday and it was resolved after giving IV Solu-Medrol. Pulmonary is following the patient. Chest x-ray shows fullness in the right hilar area which was stable for the last several days. The blood cultures are negative. 07/01/2018. And was successfully extubated on 06/29/2018. presently she is on BiPAP at night. Chest x-ray looks the same. ABG this morning pH is 7.4 PCO2 42 PO2 98.7 bicarb is 26 this ABG was done on 28% oxygen. In my opinion she can go to IM. On her hypercapnia resolved. Acute respiratory failure is resolving. Patient is off the antibiotics. We are going to continue to do daily ABGs and chest x-rays. (3) Pneumococcal bacteremia Is this a current diagnosis for this admission?: Yes Plan: 06/26/2018-patient is presently on IV ceftriaxone and ampicillin. Latest blood cultures are negative. The blood cultures from 06/21/2018 indicates MRSA with strep pneumonia. Following the ID recommendations. The MRI of the brain rule out any acute changes. Patient is still having the low-grade. fever. The plan is to continue the present antibiotic therapy and follow the further recommendations from Dr. Garcia. We are planning to do the daily follow-up chest x-rays. 06/27/2018. It is on IV ceftriaxone. As per the ID recommendations, ampicillin was discontinued. His blood cultures are negative. She is afebrile. Chest x-ray report from yesterday indicating improvement in right lower base aeration. It is presently on IV ceftriaxone. 06/28/2018 as per ID recommendations IV ceftriaxone is discontinued. Blood cultures are negative. LP came back negative so far. Repeat chest x-ray yesterday indicating persistent right perihilar banding/consolidation. Patient is afebrile in the last 24-36 hours. Patient is on Levophed 2 mics and the latest blood pressure is 113/70. She is off the IV fluids. 06/29/2018 and is off the antibiotics for the last 48 hours afebrile. WBC is 4.7. CSF culture no growth. Chest x-ray unchanged for the last 48 hours. Cultures are negative. 06/30/2018 patient is off the antibiotics for the last 72 hours the only antibiotic she is on p.o. vancomycin for C. difficile positive. Blood cultures are negative CSF culture is negative. Chest x-ray stable. 07/01/2018 patient is off the antibiotics blood cultures are negative. CHF cultures negative. Pneumococcal occult bacteremia is resolved. (4) Septic shock Is this a current diagnosis for this admission?: Yes Plan: 06/26/2018-blood cultures from 1120 2017+ for strep pneumonia sputum cultures from 1121 2017+ for MRSA and the latest blood cultures are negative. Patient is presently on ampicillin 2 grams IV every 4 hours and also on ceftriaxone 2 g IV daily. Patient is hypotensive this morning blood pressure 75/45 and IV fluids normal saline running at 75 cc/h I requested the nurse to give to 50 cc bolus of normal saline and also put the order for Levophed to titrate to improve the blood pressures doing the gentle hydration because of the patient's underlying history of congestive heart failure. 06/27/2018-is afebrile. Patient is presently on IV normal saline 50 cc/h on she is on Levophed. Pressure is 122/80. I discontinued IV fluids from today. 06/28/2018 patient's blood pressures are gradually improving latest blood pressure is 113/60 on 2 mics of Levophed ,off the IV fluids afebrile blood cultures are negative. Septic shock is resolving. 06/29/2018 patient blood pressure is 119/62 today. off Levophed from last night. After IV fluids. Cultures are negative. CSF culture is negative. septic shock is resolved. 06/30/2018 patient's blood pressure today is 122/71 she is off pressors, she is off IV fluids. Afebrile. Septic shock resolved. Blood cultures are negative. 07/01/2018 pressure today is 137/68. After IV fluids and off the pressors. He is afebrile. Cultures are negative. Septic shock resolved. (5) Hyponatremia Is this a current diagnosis for this admission?: Yes Plan: 06/26/2018 patient's sodium level is 124.7 today, on admission his it is around 141 there is a gradual and significant drop of sodiums in the last 1248 hrs. did drop his sodium despite the patient is getting normal saline at 75 cc/h. The urinary output in the last 24 hours is 800 cc and input is to around 2.4 L. Because of the significant drop in sodium and requesting a nephrology consult. Patient's creatinine is 1.56 stable. We are going to continue to closely monitor the sodium levels. 06/27/2018 latest sodium levels is 126.7 nephrology was consulted waiting for urinary sodium and urine sodium osmolality. His latest creatinine is 1.62. Going to start her on tube feeding from today. We will continue to follow the nephrology recommendations. 2017 serum sodium is 134, almost back to normal at nephrology is following the case for hyponatremia. To follow the nephrology recommendations. 06/29/2018 serum sodium today is 135. we are Following the nephrology consult recommendations. Hyponatremia resolved. 06/30/2018 nephrology consult was called for sodium of 124., 3 days ago and today sodium is 140 hyponatremia is resolved. 07/01/2018. Patient's sodium today is 141.8. Hyponatremia resolved. (6) C. difficile colitis Is this a current diagnosis for this admission?: Yes Plan: 06/26/2018-cultures were positive for C. difficile and on p.o. vancomycin and contact precautions. We will continue the p.o. vancomycin. 06/27/2018 today's plan is to continue p.o. vancomycin for C. difficile. She is on contact precautions. 06/28/2018 patient is on p.o. vancomycin for C. difficile. Patient does not have any bowel movement for the last 4 days. May be secondary to lack of nutrition based on the fact that she is n.p.o. Patient was given enema yesterday without any bowel movement. 06/29/2018 patient is on p.o. vancomycin for C. difficile today is the ninth day we are planning to repeat the C. difficile PCR today. If it is negative we will stop the p.o. vancomycin. 06/30/2018 repeat C. difficile came back positive yesterday. Plan to continue p.o. vancomycin. 06/2018 patient is having occasional diarrhea. C. difficile positive. She is on p.o. vancomycin. (7) CHF (congestive heart failure) Qualifiers: Heart failure type: diastolic Heart failure chronicity: acute on chronic Qualified Code(s): I50.33 - Acute on chronic diastolic (congestive) heart failure Is this a current diagnosis for this admission?: Yes Plan: 06/26/2018 patient has history of congestive heart failure and despite being the low blood pressures. Given the gentle hydration to prevent any fluid overload. If necessary we can to start her on pressors. I am going to request for the echocardiogram. 06/27/2018 has history of CHF due to concerns about volume overload we are giving her gentle hydration due to the fact that blood pressures are better we plan to discontinue IV fluids today. Echocardiogram was done yesterday EF is 65 %. Is a grade 1 / 4 mild diastolic dysfunction. Patient is not in fluid overload. Chest was clear. 06/28/2018 the echocardiogram done EF is 65% grade 1/4 mild diastolic dysfunction chest was clear but she has 2+ pedal edema. She is off the IV fluids. 06/29/2018 echocardiogram EF is 65% with mild diastolic dysfunction. Pedal edema resolved. Evidence of fluid overload on examination today. 06/30/2018 echocardiogram with a left 65% with mild diastolic dysfunction and chest examination there is no edema pedal edema is also resolved. 07/01/2018. On examination chest shows no fluid overload no pedal edema. And is euvolemic. (8) Hypokalemia Is this a current diagnosis for this admission?: Yes Plan: 06/27/2018 proclaim is resolved latest potassium level is 4.1. Today's labs are pending. 06/28/2018 potassium level today is 3.3 going to give her 40 mEq of potassium liquid via NG tube. 06/29/2018 potassium level today is 4.0 hypokalemia is resolved. 06/30/2018 potassium level is 3.5 today I am going to give a small dose of p.o. potassium. 07/01/2018 potassium level today is 3.9. Hypokalemia resolved. (9) Hypokalemia Is this a current diagnosis for this admission?: Yes (10) Diabetes mellitus type 2 in obese Is this a current diagnosis for this admission?: Yes Plan: 06/26/2018-patient's blood sugars are running low latest blood sugar is around 80. She is n.p.o. and intubated. Patient is to be on metformin at home it was on hold during this hospital stay. 06/27/2018 patient is n.p.o. for the last 3 days we are going to start her on her tube feedings today and we are going to start her on regular insulin sliding scale every 6 hours. Latest blood sugar is 137. 06/28/2018 it is still n.p.o. she has an NG tube, we are going to try to start her on NG tube feedings from today. Latest blood sugars is 200. pt is on sliding scale. 06/29/2018 PEG feeding was started at low rate yesterday. We checked the blood sugars with sliding scale. His blood sugar is 142. 06/30/2018 after the extubation NG tube was removed she is on soft diet. She is on sliding scale insulin . Blood sugar is 73. 07/01/2018 patient is getting the diabetic diet. Blood sugars are stable. She is on insulin sliding scale. His blood sugar is 111. (11) COPD exacerbation Is this a current diagnosis for this admission?: Yes Plan: 06/26/2018-patient is admitted for fever and pneumonia status post intubation. Culture positive for strep pneumonia. It is on ceftriaxone and ampicillin. 06/27/2018 patient is still intubated no wheezing no crepitations on examination. There is a possibility of extubation in the next 24-48 hours. She is presently on a ceftriaxone. Chest x-ray shows improved aeration in the right lung base. 06/28/2018 no wheezing, no crepitations heard. Patient is still intubated probable extubation tomorrow. Chest x-ray shows persistent right hilar banding/ consolidation. We will continue the present management. Patient is on Xopenex nebulizations every 4 as needed. 06/29/2018 examination no wheezing no crepitations heard. Transmitted breath sounds were heard. Patient is on IV Solu-Medrol 125 mg every 8 hours, I decreased the frequency to every 12 hours today. CoPD exacerbation resolved resolved in my opinion. 06/30/2018 COPD exacerbation resolved chest was clear to auscultation. Patient is on IV Solu-Medrol 125 mg every 12 hours. I am going to decrease it to 6-2.5 mg every 12 hrs. 07/01/2018 patient is still having occasional wheezing's she is requiring BiPAP at night. COPD is under control. She is still on IV Solu-Medrol 60 mg every 8 hours. Is getting the nebulizer treatments as needed. (12) Hypomagnesemia Is this a current diagnosis for this admission?: Yes Plan: 06/26/2018 latest magnesium level is 1.5 planning to give her magnesium supplementation 2 g IV 1 dose. 06/27/2018 and received 2 g of IV magnesium yesterday. Today's magnesium levels are pending. 06/28/2018 today's magnesium level is 2.1. Hypomagnesemia is resolved. 06/29/2018 latest magnesium level is 2.1. 06/30/2018 latest magnesium level is 2.1 hypomagnesia is resolved. 07/01/2018 magnesium level today is 2.0. (13) Encephalopathy Is this a current diagnosis for this admission?: Yes Plan: 06/26/2018-the cause for her altered mental status/and can follow-up with may be secondary to either infectious process metabolic causes latest sodium is 124. MRI of the brain was done no acute changes. 06/27/2018 she is going for LP today. MRI of the brain was done during this hospital stay with no acute changes. Patient is on IV ceftriaxone. 06/28/2018 LP was done yesterday, the cell count is 0. encephalopathy may be secondary to infectious cause versus metabolic reasons. pt is off the IV antibiotics. 06/29/2018 EEG shows abnormalities but no seizure activity was noticed. As mentioned above a lumbar puncture was negative so far. Encephalopathy may be secondary to infectious/metabolic causes. 06/30/2018 EEG shows abnormalities but no seizure activity was noted MRI of the brain was negative for acute changes. Thank of follow-up with is resolving. On examination patient able to communicate reasonably. 07/01/2018 EEG does not show any abnormal activity. Patient mental status is at baseline. mri of the brain acute changes. (14) Anemia Qualifiers: Anemia type: unspecified type Qualified Code(s): D64.9 - Anemia, unspecified Is this a current diagnosis for this admission?: Yes Plan: 06/26/2018 patient has history of chronic anemia. Her hemoglobin is stable around 8.1. 06/27/2018 patient's hemoglobin is status between 8.1-8.3. 06/28/2018 latest hemoglobin is 7.7, her baseline is around 8.1-8.3 I am going to repeat the CBC tomorrow if necessary we will arrange for 1 unit of blood transfusion. 06/29/2018 and hemoglobin dropped to 7.3 today. We are going to type and screen and transfuse 1 unit of PRBC. The CBC posttransfusion. 06/30/2018 patient's hemoglobin was 7.3 yesterday status post 1 unit of blood transfusion, repeat hemoglobin is 9.7 today. 07/01/2018 his hemoglobin is 10 today. She received 1 unit of PRBC during the hospital stay. (15) GERD (gastroesophageal reflux disease) Qualifiers: Esophagitis presence: esophagitis presence not specified Qualified Code(s) : K21.9 - Gastro-esophageal reflux disease without esophagitis Is this a current diagnosis for this admission?: Yes (16) MYA (acute kidney injury) Is this a current diagnosis for this admission?: Yes (17) ARF (acute renal failure) Is this a current diagnosis for this admission?: Yes Plan: 07/01/2018 on admission patient's creatinine is 1.43. Today it was 0.93. Mya has resolved. (18) Hypocalcemia Is this a current diagnosis for this admission?: Yes Plan: 06/27/2018 serum calcium levels are 7.3. Albumin min is 2.2. Calcium is around 8.4 to 8.6. 06/28/2018 serum calcium is 7.4, serum albumin is 2.2. Corrected calcium is around 8.5. 06/29/2018, calcium is 7.9 and albumin is 2.5. Corrected calcium may be around 8.8. She is getting albumin 25 mg 2 vials on daily basis. 06/30/2018 serum calcium level is 8.4 today. Albumin is 2.7. Hypercalcemia is resolved. 07/01/2018. Level is 8.4 today. Hypercalcemia resolved. - Time Time Spent with patient: 15-24 minutes Medications reviewed and adjusted accordingly: Yes
[2018-07-01] MEDS ORDERED: LEVALBUTEROL HCL NEB 1.25 MG/3 ML AMPUL NEB PRN (09:22)
[2018-07-01] MEDS ORDERED: CAMPHOR TP SCH (10:00)
[2018-07-01] MEDS ORDERED: LEVOTHYROXINE SODIUM 0.112 MG TABLET PO SCH (10:00)
[2018-07-01] MEDS ORDERED: MENTHOL TP SCH (10:00)
[2018-07-01] MEDS ORDERED: TIOTROPIUM BROMIDE DPI 5 CAP/KIT (18 MCG/CAP) IH SCH (10:00)
[2018-07-01] MEDS: FAMOTIDINE 20 MG TABLET PO SCH (10:44)
[2018-07-01] MEDS ORDERED: LANSOPRAZOLE 30 MG TAB.RAP.DR PO ONE (11:15)
[2018-07-01] MEDS: OLOPATADINE HCL 0.1% OPH SOLN 5 ML OU SCH ×2 (11:21→17:46)
[2018-07-01] MEDS: TIOTROPIUM BROMIDE DPI 5 CAP/KIT (18 MCG/CAP) IH SCH (11:21)
[2018-07-01] MEDS: LEVOTHYROXINE SODIUM 0.112 MG TABLET PO SCH (11:21)
[2018-07-01] MEDS: FLUTICASONE NASAL SPRAY 50 MCG/SPRY 120 SPRAY/16 GM NASL SCH ×2 (11:22→21:22)
[2018-07-01] MEDS: ALBUTEROL SULFATE 0.083% NEB 2.5 MG/3 ML AMPUL NEB SCH ×2 (14:23→21:28)
[2018-07-01] MEDS: INSULIN REG, HUMAN 100 UNIT/ML 3 ML VIAL (PYX) SUBCUT PRN (16:24)
[2018-07-01] MEDS: SERTRALINE HCL 50 MG TABLET PO SCH (21:20)
[2018-07-02] MEDS: LEVALBUTEROL HCL NEB 1.25 MG/3 ML AMPUL NEB SCH ×4 (02:33→19:56)
[2018-07-02] MEDS: IPRATROPIUM BROMIDE 0.02% NEB 0.5 MG/2.5 ML AMPUL NEB SCH ×4 (02:33→19:56)
[2018-07-02] MEDS: ALBUTEROL SULFATE 0.083% NEB 2.5 MG/3 ML AMPUL NEB SCH ×4 (03:18→19:55)
[2018-07-02 04:02] LABS: HEMATOCRIT 29.9 % (36.0-47.0); MEAN CORPUSCULAR HEMOGLOBIN 29.4 pg (27.0-33.4); MEAN CORPUSCULAR HGB CONC 33.5 g/dL (32.0-36.0); MEAN CORPUSCULAR VOLUME 88 fl (80-97); PLATELET COUNT 108 10^3/uL (150-450); RED CELL DISTRIBUTION WIDTH 15.7 % (11.5-14.0); WHITE BLOOD COUNT 11.9 10^3/uL (4.0-10.5)
[2018-07-02 04:20] LABS: ALANINE AMINOTRANSFERASE 18 U/L (9-52); ALBUMIN 2.6 g/dL (3.5-5.0); ALKALINE PHOSPHATASE 65 U/L (38-126); ANION GAP 6 (5-19); ASPARTATE AMINO TRANSFERASE 11 U/L (14-36); BILIRUBIN,DIRECT 0.2 mg/dL (0.0-0.4); BILIRUBIN,TOTAL 0.2 mg/dL (0.2-1.3); BLOOD UREA NITROGEN 24 mg/dL (7-20); CALCIUM 8.4 mg/dL (8.4-10.2); CARBON DIOXIDE 28 mmol/L (22-30); CHLORIDE 107 mmol/L (98-107); GLUCOSE 177 mg/dL (75-110); POTASSIUM 4.2 mmol/L (3.6-5.0); SODIUM 141.3 mmol/L (137-145); TOTAL PROTEIN 4.5 g/dL (6.3-8.2)
[2018-07-02 04:25] LABS: ABSOLUTE LYMPHOCYTES# (MANUAL) 0.4 10^3/uL (0.5-4.7); ABSOLUTE MONOCYTES # (MANUAL) 0.2 10^3/uL (0.1-1.4); ABSOLUTE NEUTROPHILS# (MANUAL) 11.3 10^3/uL (1.7-8.2); BASOPHILS % (MANUAL) 0 % (0-2); EOSINOPHILS % (MANUAL) 0 % (0-6); LYMPHOCYTES % (MANUAL) 3 % (13-45); MONOCYTES % (MANUAL) 2 % (3-13); SEGMENTED NEUTROPHILS % (MAN) 95 % (42-78); TOTAL CELLS COUNTED 100
[2018-07-02 04:28] LABS: ANISOCYTOSIS 1+; BURR CELLS SLIGHT; POIKILOCYTOSIS 2+; TOXIC GRANULATION 1+; TOXIC VACUOLATION PRESENT
[2018-07-02 04:29] LABS: OVALOCYTES 1+; PLATELET COMMENT ADEQUATE; SCHISTOCYTES 2+; TEAR DROP CELLS 2+
[2018-07-02] MEDS: VANCOMYCIN HCL INJ 500 MG VIAL PO SCH ×4 (05:45→21:15)
[2018-07-02] MEDS: METHYLPREDNISOLONE INJ 125 MG/2 ML SDV IV SCH ×2 (06:00→18:28)
--- NOTE | 2018-07-02 08:08 | PDOC PROGRESS REPORT ---
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 CT scan of the chest shows right -sided infiltrate with an elevated WBC and she was started on empiric antibiotic therapy. Later on she was transferred to ICU for possible sepsis and pneumonia. She was on pressors and broad-spectrum antibiotics she is off the pressors right now. Further recommendations of the ID senior health consultant Dr. Moody Bactrim IV vancomycin and IV levofloxacin was discontinued, presently patient is on IV ceftriaxone p.o. vancomycin and also on ampicillin. Patient is running low-grade fever. She was presently intubated. She is hypotensive at this time blood pressure is 75/45 not on pressors getting IV fluids normal saline at 75 cc/h 06/27/2018 patient is still intubated on 30% oxygen pulse ox is around 97-98% patient is alert try to respond to verbal commands no acute events over the last 24 hours. 06/28/2018 pt is still intubated on SIMV 450 tidal volume PEEP of 5 oh to 30% SPO2 is 95%. The weaning process was going to start today will believe patient may be able to extubated by tomorrow. Issues or concerns reported by the nurses from last night patient is on Versed for sedation. And is afebrile for the last 24-36 hours. 06/29/2018 patient is still intubated. She is on FiO2 of 21%. Pulse ox's are 94-96%. Still on Versed drip for sedation. Levophed was turned off last night and blood pressures are stable. Acute events in the last 24 hours. Started on PEG feeding yesterday. She had a bowel movements. And is still on p.o. vancomycin for C. difficile. On contact isolation. Patient is afebrile in the last 24 hours. 06/30/2018 and is successfully extubated yesterday. No acute events overnight. Except patient was agitated and anxious last night. She received Ativan. He was done today it looks mixed. We are going to repeat the ABG. Patient comfortably in the bed. In distress. Patient still on contact precautions because repeat C. difficile came back positive. 07/01/2018-acute events in the last 24 hours. Patient is comfortably sleeping on BiPAP this morning. Recently patient's C. difficile came back positive. Is on p.o. vancomycin. She is having occasional loose stools. Afebrile in the last 24 hours. She still on contact precautions. Think she is stable enough to go to the IMCU. 07/02/2018. Patient is stable in the last 24 hours. No acute events. Pulse ox on room air this morning is 95-96%. Febrile. Pressure is stable. As the orders for the patient to go to stepdown yesterday waiting for the bed. Reason For Visit: ACUTE ON CHRONIC RESPIRATORY FAILURE Physical Exam Vital Signs: Temp Pulse Resp BP Pulse Ox 97.9 F 99 22 H 131/65 H 90 L 07/02/18 05:00 07/02/18 07:00 07/02/18 04:00 07/02/18 04:00 07/02/18 04:00 Intake & Output 07/01/18 07/02/18 07/03/18 06:59 06:59 06:59 Intake Total 240 422 Output Total 620 455 Balance -380 -33 Weight 82.6 kg 81.3 kg General appearance: PRESENT: no acute distress Head exam: PRESENT: atraumatic Eye exam: PRESENT: PERRLA Respiratory exam: PRESENT: clear to auscultation jeff. ABSENT: rales, rhonchi, wheezes GI/Abdominal exam: PRESENT: normal bowel sounds, soft. ABSENT: distended, guarding, mass, organolmegaly, rebound, tenderness Neurological exam: PRESENT: alert, awake, oriented to person, oriented to place , oriented to time, oriented to situation, CN II-XII grossly intact. ABSENT: motor sensory deficit Psychiatric exam: PRESENT: appropriate affect, normal mood. ABSENT: agitated, anxious, homicidal ideation, suicidal ideation Results Laboratory Results: 07/02/18 03:40 07/02/18 03:40 07/02/18 07/02/18 03:40 03:40 WBC 11.9 H RBC 3.40 L Hgb 10.0 L Hct 29.9 L MCV 88 MCH 29.4 MCHC 33.5 RDW 15.7 H Plt Count 108 L Seg Neutrophils % Not Reportable Lymphocytes % Not Reportable Monocytes % Not Reportable Eosinophils % Not Reportable Basophils % Not Reportable Absolute Neutrophils Not Reportable Absolute Lymphocytes Not Reportable Absolute Monocytes Not Reportable Absolute Eosinophils Not Reportable Absolute Basophils Not Reportable Sodium 141.3 Potassium 4.2 Chloride 107 Carbon Dioxide 28 Anion Gap 6 BUN 24 H Creatinine 0.91 Est GFR ( Amer) > 60 Est GFR (Non-Af Amer) > 60 Glucose 177 H Calcium 8.4 Magnesium 1.9 Total Bilirubin 0.2 AST 11 L ALT 18 Alkaline Phosphatase 65 Total Protein 4.5 L Albumin 2.6 L 06/26/18 10:10 NT-Pro-B Natriuret Pep 47056 H Impressions: Abdomen/Pelvis CT 06/20/18 22:27 IMPRESSION: New focal area of parenchymal consolidation within the posterior aspect of the right lower lung, image 33 which could be secondary to an acute infectious process/area of pneumonitis. Postobstructive atelectasis/pneumonitis is a consideration. Small right pleural fluid collection, decreased when compared with the prior exam. Partially visualized air within the soft tissues of the upper extremities could be secondary to recent instrumentation. Please correlate. No acute intra-abdominal abnormality. Chest CT 06/20/18 22:27 IMPRESSION: New focal area of parenchymal consolidation within the posterior aspect of the right lower lung, image 33 which could be secondary to an acute infectious process/area of pneumonitis. Postobstructive atelectasis/pneumonitis is a consideration. Small right pleural fluid collection, decreased when compared with the prior exam. Partially visualized air within the soft tissues of the upper extremities could be secondary to recent instrumentation. Please correlate. No acute intra-abdominal abnormality. Head CT 06/23/18 00:00 IMPRESSION: No acute intracranial findings. Head MRI 06/24/18 13:39 IMPRESSION: ATROPHY AND CHRONIC MICRO-VASCULAR ISCHEMIC CHANGES. OTHERWISE NORMAL MRI OF THE BRAIN WITHOUT INTRAVENOUS GADOLINIUM CONTRAST. EVIDENCE OF ACUTE STROKE: NO. Guidance Fluoroscopy 06/27/18 00:00 IMPRESSION: Lumbar puncture under fluoroscopy. No immediate complication. KUB X-Ray 06/27/18 00:00 IMPRESSION: Tip of the enteric tube likely in the proximal stomach with the sidehole near the GE junction. Mild gaseous distention of the colon copyright 2011 [employer]- All Rights Reserved Lumbar Puncture 06/27/18 00:00 IMPRESSION: Lumbar puncture under fluoroscopy. No immediate complication. Chest X-Ray 07/01/18 06:00 IMPRESSION: Little interval change copyright 2010 [employer]- All Rights Reserved Assessment & Plan - Diagnosis (1) Septic shock Is this a current diagnosis for this admission?: Yes Plan: 06/26/2018-blood cultures from 1120 2017+ for strep pneumonia sputum cultures from 1121 2017+ for MRSA and the latest blood cultures are negative. Patient is presently on ampicillin 2 grams IV every 4 hours and also on ceftriaxone 2 g IV daily. Patient is hypotensive this morning blood pressure 75/45 and IV fluids normal saline running at 75 cc/h I requested the nurse to give to 50 cc bolus of normal saline and also put the order for Levophed to titrate to improve the blood pressures doing the gentle hydration because of the patient's underlying history of congestive heart failure. 06/27/2018-is afebrile. Patient is presently on IV normal saline 50 cc/h on she is on Levophed. Pressure is 122/80. I discontinued IV fluids from today. 06/28/2018 patient's blood pressures are gradually improving latest blood pressure is 113/60 on 2 mics of Levophed ,off the IV fluids afebrile blood cultures are negative. Septic shock is resolving. 06/29/2018 patient blood pressure is 119/62 today. off Levophed from last night. After IV fluids. Cultures are negative. CSF culture is negative. septic shock is resolved. 06/30/2018 patient's blood pressure today is 122/71 she is off pressors, she is off IV fluids. Afebrile. Septic shock resolved. Blood cultures are negative. 07/01/2018 pressure today is 137/68. After IV fluids and off the pressors. He is afebrile. Cultures are negative. Septic shock resolved. 07/02/2018 blood pressure today is around 130/80. Patient is off the IV fluids and off the pressors. Cultures are negative. The CSF cultures are negative. Blood cultures are negative. Sputum culture come back as reduced normal respiratory fernando. Patient is off the antibiotics for the last 72 hours. T- max is 98 Fahrenheit. (2) Acute respiratory failure with hypoxia and hypercapnia Is this a current diagnosis for this admission?: Yes Plan: 06/26/2018 acute respiratory failure with hypoxia status post intubation, right lower infiltration in the chest x-ray is improving. Blood cultures are negative. Check pulmonology for consultation. Latest ABG today pH is 7.3 piece CO2 41 PO2 76% bicarb is 20 this is is done while the patient is intubated. I am planning to change the sedation from propofol to Versed today because of the low blood pressures. 06/27/2018-patient was seen by the financial services professional Dr. Alvarez. Patient pulse oxes are much better compared to yesterday. And is now on 30% oxygen. On SIMV with tidal volume of 450 respiratory rate 14 PEEP of 5. Weaning process was started from yesterday. Her sedation she is on propofol. Continue to follow the financial services professional recommendations. ABG today improved compared to yesterday pH is 7.35 PCO2 41 PO2 82.3 bicarb is 22. 06/28/2018 no acute changes in the last 24 hours and is on SMV still intubated pulse ox is 96%. Pulmonology is following the patient. Weaning process is going to be started from today. Patient is on PEEP of 5. BG today pH is 7.47 PCO2 33 PO2 61, bicarb is 23. This is on room air. Hypercapnia is resolving. it may Improve her mental status. 06/29/2018 patient is still intubated pulse ox is 94-96% on FiO2 21%. ABG today pH is 7.47 PCO2 35.5 p.o. to 68 bicarb is 25. Hypercapnia resolved. Patient was weaned off the vent for a few hours last night. Probably we may be able to extubate her today. Pulmonary is on board. 06/30/2018 patient was successfully extubated yesterday. On 8 L oxygen patient pulse ox is around 100%. ABG was done this morning which looks mixed pH is 7.41 /PCO2 42/PO2 35 bicarb is 25.8. Patient is on DuoNeb nebulizations every 4 as needed and IV Solu-Medrol 125 mg every 12 hours. After extubation patient developed stridor yesterday and it was resolved after giving IV Solu-Medrol. Pulmonary is following the patient. Chest x-ray shows fullness in the right hilar area which was stable for the last several days. The blood cultures are negative. 07/01/2018. And was successfully extubated on 06/29/2018. presently she is on BiPAP at night. Chest x-ray looks the same. ABG this morning pH is 7.4 PCO2 42 PO2 98.7 bicarb is 26 this ABG was done on 28% oxygen. In my opinion she can go to [facility]. On her hypercapnia resolved. Acute respiratory failure is resolving. Patient is off the antibiotics. We are going to continue to do daily ABGs and chest x-rays. 07/02/2018. On examination today patient is comfortably in the bed. Pulse ox on room air is 95-96%. She is on BiPAP in the nights. On examination no wheezing no crepitations. Patient hypercapnia, acute respiratory failure resolved. She is off the antibiotics. X-rays are stable. Blood cultures are stable. Increased IV Solu-Medrol to every 12hrs. Continue the nebulizer treatments. (3) Altered mental status Qualifiers: Altered mental status type: delirium Qualified Code(s): R41.0 - Disorientation, unspecified Is this a current diagnosis for this admission?: Yes Plan: 06/27/2018 patient is going for LP today. Altered mental status may be secondary to metabolic causes versus infectious causes. Patient right now on ceftriaxone. And also on the p.o. vancomycin and sent for C. difficile. Patient is off the DVT prophylaxis for possible LP around 10:00 today. In my opinion her mental status is improving. 06/28/2018 patient had LP yesterday the cell count is 0. WBC is seen. culktures pending. Per ID recommendations I stopped IV ceftriaxone. She is only on p.o. Vanco sent for C. difficile. 06/29/2018 blood puncture was done cell count is 0 and culture after 4 stays no growth. Patient is afebrile for the last 24 hours. And is only on p.o. vancomycin for C. difficile. Altered mental status may be secondary to infectious cause/versus metabolic causes. Probably her mental status will improve with physical condition. MRI of the brain was negative. 06/30/2018. Lumbar puncture culture no growth. Patient is afebrile today's temperature is 98.6. Patient altered mental status during the hospital stay may be secondary to infectious cause/metabolic cause. Altered mental status resolving. Patient is comfortably in the bed communicating okay. 07/01/2018. Patient altered mental status is resolved. I think she is back to baseline. 07/02/2018 patient is alert and awake communicating well. The nurses are complaining that patient was not agitated but abusive to the staff. In my opinion altered mental status was resolved, she is back to her baseline. (4) Pneumococcal bacteremia Is this a current diagnosis for this admission?: Yes Plan: 06/26/2018-patient is presently on IV ceftriaxone and ampicillin. Latest blood cultures are negative. The blood cultures from 06/21/2018 indicates MRSA with strep pneumonia. Following the ID recommendations. The MRI of the brain rule out any acute changes. Patient is still having the low-grade. fever. The plan is to continue the present antibiotic therapy and follow the further recommendations from Dr. Garcia. We are planning to do the daily follow-up chest x-rays. 06/27/2018. It is on IV ceftriaxone. As per the ID recommendations, ampicillin was discontinued. His blood cultures are negative. She is afebrile. Chest x-ray report from yesterday indicating improvement in right lower base aeration. It is presently on IV ceftriaxone. 06/28/2018 as per ID recommendations IV ceftriaxone is discontinued. Blood cultures are negative. LP came back negative so far. Repeat chest x-ray yesterday indicating persistent right perihilar banding/consolidation. Patient is afebrile in the last 24-36 hours. Patient is on Levophed 2 mics and the latest blood pressure is 113/70. She is off the IV fluids. 06/29/2018 and is off the antibiotics for the last 48 hours afebrile. WBC is 4.7. CSF culture no growth. Chest x-ray unchanged for the last 48 hours. Cultures are negative. 06/30/2018 patient is off the antibiotics for the last 72 hours the only antibiotic she is on p.o. vancomycin for C. difficile positive. Blood cultures are negative CSF culture is negative. Chest x-ray stable. 07/01/2018 patient is off the antibiotics blood cultures are negative. CsF cultures negative. Pneumococcal bacteremia is resolved. 07/02/2018 patient is afebrile for the last 7-2 hours. She is off the antibiotics. Chest x-ray was stable. Culture came back reduced normal fernando. Blood cultures are negative. (5) Hyponatremia Is this a current diagnosis for this admission?: Yes Plan: 06/26/2018 patient's sodium level is 124.7 today, on admission his it is around 141 there is a gradual and significant drop of sodiums in the last 1248 hrs. did drop his sodium despite the patient is getting normal saline at 75 cc/h. The urinary output in the last 24 hours is 800 cc and input is to around 2.4 L. Because of the significant drop in sodium and requesting a nephrology consult. Patient's creatinine is 1.56 stable. We are going to continue to closely monitor the sodium levels. 06/27/2018 latest sodium levels is 126.7 nephrology was consulted waiting for urinary sodium and urine sodium osmolality. His latest creatinine is 1.62. Going to start her on tube feeding from today. We will continue to follow the nephrology recommendations. 2017 serum sodium is 134, almost back to normal at nephrology is following the case for hyponatremia. To follow the nephrology recommendations. 06/29/2018 serum sodium today is 135. we are Following the nephrology consult recommendations. Hyponatremia resolved. 06/30/2018 nephrology consult was called for sodium of 124., 3 days ago and today sodium is 140 hyponatremia is resolved. 07/01/2018. Patient's sodium today is 141.8. Hyponatremia resolved. 07/02/2018 patient's sodium level today is 141. Hyponatremia resolved. (6) C. difficile colitis Is this a current diagnosis for this admission?: Yes Plan: 06/26/2018-cultures were positive for C. difficile and on p.o. vancomycin and contact precautions. We will continue the p.o. vancomycin. 06/27/2018 today's plan is to continue p.o. vancomycin for C. difficile. She is on contact precautions. 06/28/2018 patient is on p.o. vancomycin for C. difficile. Patient does not have any bowel movement for the last 4 days. May be secondary to lack of nutrition based on the fact that she is n.p.o. Patient was given enema yesterday without any bowel movement. 06/29/2018 patient is on p.o. vancomycin for C. difficile today is the ninth day we are planning to repeat the C. difficile PCR today. If it is negative we will stop the p.o. vancomycin. 06/30/2018 repeat C. difficile came back positive yesterday. Plan to continue p.o. vancomycin. 06/2018 patient is having occasional diarrhea. C. difficile positive. She is on p.o. vancomycin. L3 2017 repeat stool for C. difficile came back positive she is on p.o. vancomycin. Afebrile. (7) CHF (congestive heart failure) Qualifiers: Heart failure type: diastolic Heart failure chronicity: acute on chronic Qualified Code(s): I50.33 - Acute on chronic diastolic (congestive) heart failure Is this a current diagnosis for this admission?: Yes Plan: 06/26/2018 patient has history of congestive heart failure and despite being the low blood pressures. Given the gentle hydration to prevent any fluid overload. If necessary we can to start her on pressors. I am going to request for the echocardiogram. 06/27/2018 has history of CHF due to concerns about volume overload we are giving her gentle hydration due to the fact that blood pressures are better we plan to discontinue IV fluids today. Echocardiogram was done yesterday EF is 65 %. Is a grade 1 / 4 mild diastolic dysfunction. Patient is not in fluid overload. Chest was clear. 06/28/2018 the echocardiogram done EF is 65% grade 1/4 mild diastolic dysfunction chest was clear but she has 2+ pedal edema. She is off the IV fluids. 06/29/2018 echocardiogram EF is 65% with mild diastolic dysfunction. Pedal edema resolved. Evidence of fluid overload on examination today. 06/30/2018 echocardiogram with a left 65% with mild diastolic dysfunction and chest examination there is no edema pedal edema is also resolved. 07/01/2018. On examination chest shows no fluid overload no pedal edema. And is euvolemic. 07/02/2018 echocardiogram with EF of 65%. With mild diastolic dysfunction. No evidence of fluid overload. (8) Hypokalemia Is this a current diagnosis for this admission?: Yes Plan: 06/27/2018 proclaim is resolved latest potassium level is 4.1. Today's labs are pending. 06/28/2018 potassium level today is 3.3 going to give her 40 mEq of potassium liquid via NG tube. 06/29/2018 potassium level today is 4.0 hypokalemia is resolved. 06/30/2018 potassium level is 3.5 today I am going to give a small dose of p.o. potassium. 07/01/2018 potassium level today is 3.9. Hypokalemia resolved. 07/02/2018 potassium level today is 4.2. (9) Hypokalemia Is this a current diagnosis for this admission?: Yes (10) Diabetes mellitus type 2 in obese Is this a current diagnosis for this admission?: Yes Plan: 06/26/2018-patient's blood sugars are running low latest blood sugar is around 80. She is n.p.o. and intubated. Patient is to be on metformin at home it was on hold during this hospital stay. 06/27/2018 patient is n.p.o. for the last 3 days we are going to start her on her tube feedings today and we are going to start her on regular insulin sliding scale every 6 hours. Latest blood sugar is 137. 06/28/2018 it is still n.p.o. she has an NG tube, we are going to try to start her on NG tube feedings from today. Latest blood sugars is 200. pt is on sliding scale. 06/29/2018 PEG feeding was started at low rate yesterday. We checked the blood sugars with sliding scale. His blood sugar is 142. 06/30/2018 after the extubation NG tube was removed she is on soft diet. She is on sliding scale insulin . Blood sugar is 73. 07/01/2018 patient is getting the diabetic diet. Blood sugars are stable. She is on insulin sliding scale. His blood sugar is 111. 07/02/2018 latest blood sugar is 177. Patient on insulin sliding scale. Plan is to continue the current management. (11) COPD exacerbation Is this a current diagnosis for this admission?: Yes Plan: 06/26/2018-patient is admitted for fever and pneumonia status post intubation. Culture positive for strep pneumonia. It is on ceftriaxone and ampicillin. 06/27/2018 patient is still intubated no wheezing no crepitations on examination. There is a possibility of extubation in the next 24-48 hours. She is presently on a ceftriaxone. Chest x-ray shows improved aeration in the right lung base. 06/28/2018 no wheezing, no crepitations heard. Patient is still intubated probable extubation tomorrow. Chest x-ray shows persistent right hilar banding/ consolidation. We will continue the present management. Patient is on Xopenex nebulizations every 4 as needed. 06/29/2018 examination no wheezing no crepitations heard. Transmitted breath sounds were heard. Patient is on IV Solu-Medrol 125 mg every 8 hours, I decreased the frequency to every 12 hours today. CoPD exacerbation resolved resolved in my opinion. 06/30/2018 COPD exacerbation resolved chest was clear to auscultation. Patient is on IV Solu-Medrol 125 mg every 12 hours. I am going to decrease it to 6-2.5 mg every 12 hrs. 07/01/2018 patient is still having occasional wheezing's she is requiring BiPAP at night. COPD is under control. She is still on IV Solu-Medrol 60 mg every 8 hours. Is getting the nebulizer treatments as needed. 07/02/2018 on examination chest was clear. The nurses are telling me she has occasional wheezing and plan is to continue the sorry IV Solu-Medrol, and nebulizer treatments as needed basis. Increased IV Solu-Medrol from 60 mg every 8 hours to every 12 hours. (12) Hypomagnesemia Is this a current diagnosis for this admission?: Yes Plan: 06/26/2018 latest magnesium level is 1.5 planning to give her magnesium supplementation 2 g IV 1 dose. 06/27/2018 and received 2 g of IV magnesium yesterday. Today's magnesium levels are pending. 06/28/2018 today's magnesium level is 2.1. Hypomagnesemia is resolved. 06/29/2018 latest magnesium level is 2.1. 06/30/2018 latest magnesium level is 2.1 hypomagnesia is resolved. 07/01/2018 magnesium level today is 2.0. (13) Encephalopathy Is this a current diagnosis for this admission?: Yes Plan: 06/26/2018-the cause for her altered mental status/and can follow-up with may be secondary to either infectious process metabolic causes latest sodium is 124. MRI of the brain was done no acute changes. 06/27/2018 she is going for LP today. MRI of the brain was done during this hospital stay with no acute changes. Patient is on IV ceftriaxone. 06/28/2018 LP was done yesterday, the cell count is 0. encephalopathy may be secondary to infectious cause versus metabolic reasons. pt is off the IV antibiotics. 06/29/2018 EEG shows abnormalities but no seizure activity was noticed. As mentioned above a lumbar puncture was negative so far. Encephalopathy may be secondary to infectious/metabolic causes. 06/30/2018 EEG shows abnormalities but no seizure activity was noted MRI of the brain was negative for acute changes. Thank of follow-up with is resolving. On examination patient able to communicate reasonably. 07/01/2018 EEG does not show any abnormal activity. Patient mental status is at baseline. mri of the brain acute changes. 07/02/2018 LP was done cultures are negative. Sepsis was resolved. EEG shows abnormalities but no active seizure activity. encephalopathy resolving ,it may be secondary to metabolic/infectious causes. (14) Anemia Qualifiers: Anemia type: unspecified type Qualified Code(s): D64.9 - Anemia, unspecified Is this a current diagnosis for this admission?: Yes Plan: 06/26/2018 patient has history of chronic anemia. Her hemoglobin is stable around 8.1. 06/27/2018 patient's hemoglobin is status between 8.1-8.3. 06/28/2018 latest hemoglobin is 7.7, her baseline is around 8.1-8.3 I am going to repeat the CBC tomorrow if necessary we will arrange for 1 unit of blood transfusion. 06/29/2018 and hemoglobin dropped to 7.3 today. We are going to type and screen and transfuse 1 unit of PRBC. The CBC posttransfusion. 06/30/2018 patient's hemoglobin was 7.3 yesterday status post 1 unit of blood transfusion, repeat hemoglobin is 9.7 today. 07/01/2018 his hemoglobin is 10 today. She received 1 unit of PRBC during the hospital stay. 07/02/2018 globin is 10 today she received 1 unit of PRBC during this hospital stay. (15) GERD (gastroesophageal reflux disease) Qualifiers: Esophagitis presence: esophagitis presence not specified Qualified Code(s) : K21.9 - Gastro-esophageal reflux disease without esophagitis Is this a current diagnosis for this admission?: Yes (16) MYA (acute kidney injury) Is this a current diagnosis for this admission?: Yes (17) ARF (acute renal failure) Is this a current diagnosis for this admission?: Yes Plan: 07/01/2018 on admission patient's creatinine is 1.43. Today it was 0.93. Mya has resolved. All 09/2017 AK resolved on admission creatinine was 1.43 today it is 0.9. He is to continue the current management. She is off the IV fluids. (18) Hypocalcemia Is this a current diagnosis for this admission?: Yes - Time Time Spent with patient: 15-24 minutes Medications reviewed and adjusted accordingly: Yes
[2018-07-02] MEDS: HEPARIN SOD (PORCINE) 5,000 UNIT/ML 1 ML SYRINGE SUBCUT SCH ×2 (09:31→21:14)
[2018-07-02] MEDS: LANSOPRAZOLE 30 MG TAB.RAP.DR PO SCH (09:31)
[2018-07-02] MEDS: FLUTICASONE NASAL SPRAY 50 MCG/SPRY 120 SPRAY/16 GM NASL SCH ×2 (09:32→21:14)
[2018-07-02] MEDS: OLOPATADINE HCL 0.1% OPH SOLN 5 ML OU SCH ×2 (09:34→18:29)
[2018-07-02] MEDS: LEVOTHYROXINE SODIUM 0.112 MG TABLET PO SCH (10:35)
[2018-07-02] MEDS: TIOTROPIUM BROMIDE DPI 5 CAP/KIT (18 MCG/CAP) IH SCH (10:36)
--- NOTE | 2018-07-02 12:00 | PDOC PROGRESS REPORT ---
Subjective Progress Note for:: 06/28/18 Subjective:: intubated/sedate Reason For Visit: SEPSIS DIABETES, COPD EXACERBATION PNEUMONIA Physical Exam Vital Signs: Temp Pulse Resp BP Pulse Ox 97.7 F 98 17 97/56 L 98 06/28/18 07:44 06/28/18 08:21 06/28/18 08:21 06/28/18 06:36 06/28/18 08:21 Intake & Output 06/27/18 06/28/18 06/29/18 06:59 06:59 06:59 Intake Total 1717 881 30 Output Total 1780 6365 200 Balance -68 -2394 -170 Weight 86.1 kg 83.8 kg General appearance: PRESENT: no acute distress, disheveled, obese Head exam: PRESENT: atraumatic, normocephalic Eye exam: PRESENT: conjunctiva pale. ABSENT: nystagmus, periorbital swelling, scleral icterus Mouth exam: PRESENT: dry mucosa, neck supple, tongue midline, other - ET Neck exam: ABSENT: carotid bruit, JVD, lymphadenopathy, thyromegaly, tracheal deviation, tracheostomy Respiratory exam: PRESENT: decreased breath sounds, prolonged expiratory phas, rales, rhonchi, unlabored, wheezes. ABSENT: stridor Cardiovascular exam: PRESENT: RRR, +S1 Pulses: PRESENT: normal radial pulses - [id number] GI/Abdominal exam: PRESENT: soft. ABSENT: tenderness - [id number] Gentrourinary exam: PRESENT: indwelling catheter Extremities exam: PRESENT: pedal edema. ABSENT: calf tenderness, clubbing, joint swelling Musculoskeletal exam: ABSENT: deformity, dislocation Neurological exam: ABSENT: awake Skin exam: PRESENT: dry, warm - [id number] Results Laboratory Results: 06/28/18 06:00 06/28/18 06:00 06/27/18 06/27/18 06/27/18 03:30 10:37 10:37 WBC RBC Hgb Hct MCV MCH MCHC RDW Plt Count Seg Neutrophils % Lymphocytes % Monocytes % Eosinophils % Basophils % Absolute Neutrophils Absolute Lymphocytes Absolute Monocytes Absolute Eosinophils Absolute Basophils Carbonic Acid HCO3/H2CO3 Ratio ABG pH ABG pCO2 ABG pO2 ABG HCO3 ABG O2 Saturation ABG Base Excess FiO2 Sodium 128.5 L Potassium 3.6 Chloride 96 L Carbon Dioxide 20 L Anion Gap 13 BUN 21 H Creatinine 1.61 H Est GFR ( Amer) 38 L Est GFR (Non-Af Amer) 31 L Glucose 164 H Calcium 7.3 L Magnesium 2.2 Total Bilirubin 0.2 AST 14 ALT 21 Alkaline Phosphatase 48 Total Protein 4.7 L Albumin 2.4 L Fluid Tube Number 3 CSF Volume 17.0 CSF Appearance CLEAR CSF Color COLORLESS CSF WBC 0 CSF RBC 0 CSF Glucose 118 H CSF Total Protein 123 H 06/28/18 06/28/18 06/28/18 06:00 06:00 06:00 WBC 4.9 RBC 2.59 L Hgb 7.7 L Hct 22.7 L MCV 88 MCH 29.8 MCHC 34.0 RDW 16.8 H Plt Count 139 L Seg Neutrophils % Not Reportable Lymphocytes % Not Reportable Monocytes % Not Reportable Eosinophils % Not Reportable Basophils % Not Reportable Absolute Neutrophils Not Reportable Absolute Lymphocytes Not Reportable Absolute Monocytes Not Reportable Absolute Eosinophils Not Reportable Absolute Basophils Not Reportable Carbonic Acid 1.00 L HCO3/H2CO3 Ratio 23:1 ABG pH 7.47 H ABG pCO2 33.3 L ABG pO2 61.4 L ABG HCO3 23.4 ABG O2 Saturation 93.1 L ABG Base Excess -0.1 FiO2 21% Sodium 133.9 L Potassium 3.3 L Chloride 101 Carbon Dioxide 23 Anion Gap 10 BUN 22 H Creatinine 1.41 H Est GFR ( Amer) 44 L Est GFR (Non-Af Amer) 36 L Glucose 200 H Calcium 7.4 L Magnesium 2.1 Total Bilirubin 0.2 AST 10 L ALT 19 Alkaline Phosphatase 44 Total Protein 4.3 L Albumin 2.2 L Fluid Tube Number CSF Volume CSF Appearance CSF Color CSF WBC CSF RBC CSF Glucose CSF Total Protein 06/26/18 10:10 NT-Pro-B Natriuret Pep [id number] H Impressions: Abdomen/Pelvis CT 06/20/18 22:27 IMPRESSION: New focal area of parenchymal consolidation within the posterior aspect of the right lower lung, image 33 which could be secondary to an acute infectious process/area of pneumonitis. Postobstructive atelectasis/pneumonitis is a consideration. Small right pleural fluid collection, decreased when compared with the prior exam. Partially visualized air within the soft tissues of the upper extremities could be secondary to recent instrumentation. Please correlate. No acute intra-abdominal abnormality. Chest CT 06/20/18 22:27 IMPRESSION: New focal area of parenchymal consolidation within the posterior aspect of the right lower lung, image 33 which could be secondary to an acute infectious process/area of pneumonitis. Postobstructive atelectasis/pneumonitis is a consideration. Small right pleural fluid collection, decreased when compared with the prior exam. Partially visualized air within the soft tissues of the upper extremities could be secondary to recent instrumentation. Please correlate. No acute intra-abdominal abnormality. Head CT 06/23/18 00:00 IMPRESSION: No acute intracranial findings. Head MRI 06/24/18 13:39 IMPRESSION: ATROPHY AND CHRONIC MICRO-VASCULAR ISCHEMIC CHANGES. OTHERWISE NORMAL MRI OF THE BRAIN WITHOUT INTRAVENOUS GADOLINIUM CONTRAST. EVIDENCE OF ACUTE STROKE: NO. Guidance Fluoroscopy 06/27/18 00:00 IMPRESSION: Lumbar puncture under fluoroscopy. No immediate complication. KUB X-Ray 06/27/18 00:00 IMPRESSION: Tip of the enteric tube likely in the proximal stomach with the sidehole near the GE junction. Mild gaseous distention of the colon copyright 2011 [employer]- All Rights Reserved Lumbar Puncture 06/27/18 00:00 IMPRESSION: Lumbar puncture under fluoroscopy. No immediate complication. Chest X-Ray 06/28/18 19:00 IMPRESSION: NO SIGNIFICANT CHANGE IN APPEARANCE OF THE CHEST. Assessment & Plan - Diagnosis (1) Acute respiratory failure with hypoxia and hypercapnia Is this a current diagnosis for this admission?: Yes Plan: improving (2) Altered mental status Qualifiers: Altered mental status type: delirium Qualified Code(s): R41.0 - Disorientation, unspecified Is this a current diagnosis for this admission?: Yes Plan: Unchanged EEG showed diffuse abnormalities but no seizure activity (3) Septic shock Is this a current diagnosis for this admission?: Yes Plan: vasopressor (4) COPD (chronic obstructive pulmonary disease) Qualifiers: COPD type: unspecified COPD Qualified Code(s): J44.9 - Chronic obstructive pulmonary disease, unspecified Is this a current diagnosis for this admission?: Yes Plan: Still using vasopressor agents continue current bronchodilator therapy - Time Time Spent with patient: 35 or more minutes Total Critical Time (Minutes): 40
--- NOTE | 2018-07-02 12:03 | PDOC PROGRESS REPORT ---
Subjective Progress Note for:: 06/29/18 Subjective:: transfuse then extubate bipap back-up Reason For Visit: SEPSIS DIABETES, COPD EXACERBATION PNEUMONIA Physical Exam Vital Signs: Temp Pulse Resp BP Pulse Ox 98.4 F 100 22 H 125/63 95 06/29/18 08:00 06/29/18 08:09 06/29/18 08:09 06/29/18 08:00 06/29/18 08:09 Intake & Output 06/28/18 06/29/18 06/30/18 06:59 06:59 06:59 Intake Total 881 576 13 Output Total 3275 1605 250 Balance -2394 -1029 -237 Weight 83.8 kg 81.3 kg General appearance: PRESENT: no acute distress, disheveled, obese Head exam: PRESENT: atraumatic, normocephalic Eye exam: PRESENT: conjunctiva pale, EOMI Mouth exam: PRESENT: dry mucosa, neck supple, tongue midline, other - ET tube Neck exam: ABSENT: carotid bruit, JVD, lymphadenopathy, thyromegaly, tracheal deviation, tracheostomy Respiratory exam: PRESENT: decreased breath sounds, prolonged expiratory phas, rales, rhonchi, unlabored. ABSENT: retraction Cardiovascular exam: PRESENT: RRR, +S1, +S2 Pulses: PRESENT: normal radial pulses - [id number] GI/Abdominal exam: PRESENT: soft. ABSENT: tenderness - [id number] Gentrourinary exam: PRESENT: indwelling catheter Extremities exam: PRESENT: pedal edema. ABSENT: calf tenderness, clubbing, joint swelling Musculoskeletal exam: ABSENT: deformity, dislocation Neurological exam: PRESENT: awake. ABSENT: alert Skin exam: PRESENT: dry, warm Results Laboratory Results: 06/29/18 05:30 06/29/18 05:30 06/29/18 06/29/18 06/29/18 05:30 05:30 05:30 WBC 4.7 RBC 2.44 L Hgb 7.3 L Hct 21.3 L MCV 87 MCH 29.8 MCHC 34.2 RDW 16.7 H Plt Count 141 L Seg Neutrophils % Not Reportable Lymphocytes % Not Reportable Monocytes % Not Reportable Eosinophils % Not Reportable Basophils % Not Reportable Absolute Neutrophils Not Reportable Absolute Lymphocytes Not Reportable Absolute Monocytes Not Reportable Absolute Eosinophils Not Reportable Absolute Basophils Not Reportable Carbonic Acid 1.07 HCO3/H2CO3 Ratio 23:1 ABG pH 7.47 H ABG pCO2 35.5 ABG pO2 68.2 L ABG HCO3 25.1 H ABG O2 Saturation 94.8 ABG Base Excess 1.5 FiO2 21% Sodium 135.4 L Potassium 4.0 Chloride 102 Carbon Dioxide 24 Anion Gap 9 BUN 23 H Creatinine 1.21 Est GFR ( Amer) 53 L Est GFR (Non-Af Amer) 43 L Glucose 142 H Calcium 7.9 L Magnesium 2.1 Total Bilirubin 0.2 AST 12 L ALT 14 Alkaline Phosphatase 47 Total Protein 4.5 L Albumin 2.5 L 06/26/18 10:10 NT-Pro-B Natriuret Pep [id number] H Impressions: Abdomen/Pelvis CT 06/20/18 22:27 IMPRESSION: New focal area of parenchymal consolidation within the posterior aspect of the right lower lung, image 33 which could be secondary to an acute infectious process/area of pneumonitis. Postobstructive atelectasis/pneumonitis is a consideration. Small right pleural fluid collection, decreased when compared with the prior exam. Partially visualized air within the soft tissues of the upper extremities could be secondary to recent instrumentation. Please correlate. No acute intra-abdominal abnormality. Chest CT 06/20/18 22:27 IMPRESSION: New focal area of parenchymal consolidation within the posterior aspect of the right lower lung, image 33 which could be secondary to an acute infectious process/area of pneumonitis. Postobstructive atelectasis/pneumonitis is a consideration. Small right pleural fluid collection, decreased when compared with the prior exam. Partially visualized air within the soft tissues of the upper extremities could be secondary to recent instrumentation. Please correlate. No acute intra-abdominal abnormality. Head CT 06/23/18 00:00 IMPRESSION: No acute intracranial findings. Head MRI 06/24/18 13:39 IMPRESSION: ATROPHY AND CHRONIC MICRO-VASCULAR ISCHEMIC CHANGES. OTHERWISE NORMAL MRI OF THE BRAIN WITHOUT INTRAVENOUS GADOLINIUM CONTRAST. EVIDENCE OF ACUTE STROKE: NO. Guidance Fluoroscopy 06/27/18 00:00 IMPRESSION: Lumbar puncture under fluoroscopy. No immediate complication. KUB X-Ray 06/27/18 00:00 IMPRESSION: Tip of the enteric tube likely in the proximal stomach with the sidehole near the GE junction. Mild gaseous distention of the colon copyright 2010 [employer]- All Rights Reserved Lumbar Puncture 06/27/18 00:00 IMPRESSION: Lumbar puncture under fluoroscopy. No immediate complication. Chest X-Ray 06/29/18 06:00 IMPRESSION: No significant interval change. Findings as noted above Assessment & Plan - Diagnosis (1) Acute respiratory failure with hypoxia and hypercapnia Is this a current diagnosis for this admission?: Yes Plan: rr,min vol,fio2 suggest sucessful extubation (2) Altered mental status Qualifiers: Altered mental status type: delirium Qualified Code(s): R41.0 - Disorientation, unspecified Is this a current diagnosis for this admission?: Yes Plan: Unchanged EEG showed diffuse abnormalities but no seizure activity (3) Septic shock Is this a current diagnosis for this admission?: No (4) COPD (chronic obstructive pulmonary disease) Qualifiers: COPD type: unspecified COPD Qualified Code(s): J44.9 - Chronic obstructive pulmonary disease, unspecified Is this a current diagnosis for this admission?: Yes Plan: Still using vasopressor agents continue current bronchodilator therapy - Time Total Critical Time (Minutes): 55
--- NOTE | 2018-07-02 12:13 | PDOC CONSULTATION ---
Consultation Consult Date: 06/26/18 Attending physician:: EMILY HEWITT Consult reason:: resp failure History of Present Illness Admission Date/PCP: 06/21/18 00:15 BAKARI VELARDE MD History of Present Illness: TRENTON MCCOY is a 72 year old female,presented to ED,complaint of altered mental status decreased shortness of breath patient [place] a [place] [facility] [place] presented obtunded., Past Medical History Cardiac Medical History: Reports: Congestive Heart Failure, Coronary Artery Disease, Myocardial Infarction, Hypertension Denies: DVT, Hyperlipidema, Pulmonary Embolism Pulmonary Medical History: Reports: Asthma, Bronchitis, Chronic Obstructive Pulmonary Disease (COPD) - 2 L nasal home oxygen, Pneumonia, Respiratory Failure - Chronic respiratory failure Denies: Sleep Apnea, Tuberculosis Neurological Medical History: Denies: Seizures Endocrine Medical History: Reports: Diabetes Mellitus Type 2, Hypothyroidism Denies: Diabetes Mellitus Type 1, Hyperthyroidism Renal/ Medical History: Denies: End Stage Renal Disease Malignancy Medical History: Reports: Brain Cancer - Lung cancer with brain metastases, 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 GI Medical History: Reports: Gastroesophageal Reflux Disease Denies: Cirrhosis, Hepatitis Musculoskeltal Medical History: Reports: Arthritis Psychiatric Medical History: Reports: Dementia, Depression Denies: Bipolar Disorder Hematology: Reports: Anemia, Bleeding Tendencies Infectious Medical History: Reports: Clostridium Difficile Past Surgical History Past Surgical History: Reports: Cholecystectomy, Orthopedic Surgery - Foot surgery, Other - cataract bilateral Social History Information Source: [facility], [facility] Records Lives with: Longterm Smoking Status: Former Smoker Passive smoke exposure as: Both Frequency of Alcohol Use: None Hx Recreational Drug Use: No Drugs: None Hx Prescription Drug Abuse: No Do you have pets?: No Have you had any respiratory illnesses as a child?: No Have you been exposed to any sick contacts recently?: No Have you had any recent respiratory illnesses?: No Have you travelled outside of [place] in the past 12 months?: No - Advance Directive Resuscitation Status: Full Code Family History Family History: COPD, Malignancy - Lung cancer Parental Family History Reviewed: Yes Children Family History Reviewed: Yes Sibling(s) Family History Reviewed.: Yes Medication/Allergy Home Medications: Albuterol Sulfate [Ventolin 0.083% Neb 2.5 mg/3 ml Ampul] 1 vial NEB RTQ6 Furosemide [Lasix 40 mg Tablet] 40 mg PO DAILY 06/21/18 Lactulose [Constulose 10 gm/15 mL Oral Solution] 20 gm PO DAILY 06/21/18 Levalbuterol HCl [Xopenex Neb 1.25 mg/3 ml Ampul] 1.25 mg NEB RTQ4HP PRN Levothyroxine Sodium [Synthroid 0.112 mg Tablet] 112 mcg PO DAILY 06/21/18 Lisinopril [Prinivil 2.5 mg Tablet] 2.5 mg PO DAILY 06/21/18 Menthol/Camphor [Sarna Anti-Itch Lotion] 1 applic TP TID 06/21/18 Metformin HCl [Glucophage 500 mg Tablet] 500 mg PO BID 06/21/18 Olopatadine HCl [Patanol 0.1% Oph Soln 5 Ml Bottle] 1 drop OU BID 06/21/18 Pantoprazole Sodium [Protonix] 40 mg PO DAILY 06/21/18 Sertraline HCl [Zoloft 50 mg Tablet] 50 mg PO DAILY 06/21/18 Tiotropium [place] [Spiriva Handihaler 5 Cap/Kit (18 Mcg/Cap)] 1 cap IH DAILY Tramadol HCl [Ultram 50 mg Tablet] 50 mg PO Q12HP PRN 06/21/18 Allergies/Adverse Reactions: azithromycin Allergy (Verified 06/20/18 20:48) amoxicillin [Amoxicillin] Adverse Reaction (Verified 06/20/18 20:48) visual hallucinations erythromycin base [Erythromycin Base] Adverse Reaction (Verified 06/20/18 20:48) visual hallucinations Potassium Clavulanate * [From Augmentin] Adverse Reaction (Verified 06/20/18 20: 48) visual hallucinations Review of Systems ROS unobtainable: Due to endotracheal tube, Due to mental status Physical Exam Vital Signs: Temp Pulse Resp BP Pulse Ox 99.1 F 115 H 24 H 97/71 L 100 06/26/18 08:00 06/26/18 08:00 06/26/18 08:00 06/26/18 08:00 06/26/18 08:00 Intake & Output 06/25/18 06/26/18 06/27/18 06:59 06:59 06:59 Intake Total 3385.625 3241.250 Output Total 586 815 60 Balance 2799.625 2426.250 -60 Weight 79.1 kg 86.1 kg General appearance: PRESENT: no acute distress, disheveled, obese, well- developed, well-nourished. ABSENT: cooperative Head exam: PRESENT: atraumatic, normocephalic Eye exam: PRESENT: conjunctiva pale. ABSENT: nystagmus, periorbital swelling, scleral icterus Mouth exam: PRESENT: dry mucosa, neck supple, tongue midline, other - ET tube Neck exam: ABSENT: carotid bruit, JVD, lymphadenopathy, thyromegaly, tracheal deviation, tracheostomy - [id number] Respiratory exam: PRESENT: decreased breath sounds, prolonged expiratory phas, rales, rhonchi, unlabored, wheezes. ABSENT: retraction, stridor Cardiovascular exam: PRESENT: RRR, +S1, +S2 Pulses: PRESENT: normal radial pulses GI/Abdominal exam: PRESENT: soft. ABSENT: tenderness Gentrourinary exam: PRESENT: indwelling catheter Extremities exam: PRESENT: pedal edema. ABSENT: calf tenderness, clubbing, joint swelling Musculoskeletal exam: ABSENT: deformity, dislocation Neurological exam: ABSENT: awake Skin exam: PRESENT: dry, warm Results Laboratory Results: 06/26/18 04:20 06/26/18 04:20 06/25/18 06/25/18 06/25/18 10:57 14:40 16:00 WBC 5.6 RBC 2.70 L Hgb 8.1 L Hct 24.0 L MCV 89 MCH 30.2 MCHC 33.9 RDW 16.1 H Plt Count 146 L Seg Neutrophils % Lymphocytes % Monocytes % Eosinophils % Basophils % Absolute Neutrophils Absolute Lymphocytes Absolute Monocytes Absolute Eosinophils Absolute Basophils Carbonic Acid 2.30 H HCO3/H2CO3 Ratio 9:1 ABG pH 7.09 L* ABG pCO2 76.4 H* ABG pO2 93.9 ABG HCO3 22.8 ABG O2 Saturation 93.7 L ABG Base Excess -7.5 FiO2 2L Sodium Potassium Chloride Carbon Dioxide Anion Gap BUN Creatinine Est GFR ( Amer) Est GFR (Non-Af Amer) Glucose Calcium Magnesium Total Bilirubin AST ALT Alkaline Phosphatase Total Protein Albumin Triglycerides Blood Type O POSITIVE Antibody Screen NEGATIVE 06/26/18 06/26/18 06/26/18 04:20 04:20 04:20 WBC 7.4 RBC 2.70 L Hgb 8.1 L Hct 23.5 L MCV 87 MCH 30.1 MCHC 34.6 RDW 16.3 H Plt Count 147 L Seg Neutrophils % Not Reportable Lymphocytes % Not Reportable Monocytes % Not Reportable Eosinophils % Not Reportable Basophils % Not Reportable Absolute Neutrophils Not Reportable Absolute Lymphocytes Not Reportable Absolute Monocytes Not Reportable Absolute Eosinophils Not Reportable Absolute Basophils Not Reportable Carbonic Acid HCO3/H2CO3 Ratio ABG pH ABG pCO2 ABG pO2 ABG HCO3 ABG O2 Saturation ABG Base Excess FiO2 Sodium 124.7 L Potassium 3.2 L Chloride 92 L Carbon Dioxide 24 Anion Gap 9 BUN 25 H Creatinine 1.56 H Est GFR ( Amer) 39 L Est GFR (Non-Af Amer) 32 L Glucose 80 Calcium 6.8 L* Magnesium 1.5 L Total Bilirubin 0.1 L AST 19 ALT 29 Alkaline Phosphatase 40 Total Protein 4.1 L Albumin 2.0 L Triglycerides 219 H Blood Type Antibody Screen 06/26/18 08:30 WBC RBC Hgb Hct MCV MCH MCHC RDW Plt Count Seg Neutrophils % Lymphocytes % Monocytes % Eosinophils % Basophils % Absolute Neutrophils Absolute Lymphocytes Absolute Monocytes Absolute Eosinophils Absolute Basophils Carbonic Acid 1.24 HCO3/H2CO3 Ratio 15:1 ABG pH 7.30 L ABG pCO2 41.3 ABG pO2 76.6 L ABG HCO3 19.8 L ABG O2 Saturation 94.0 ABG Base Excess -6.2 FiO2 30% Sodium Potassium Chloride Carbon Dioxide Anion Gap BUN Creatinine Est GFR ( Amer) Est GFR (Non-Af Amer) Glucose Calcium Magnesium Total Bilirubin AST ALT Alkaline Phosphatase Total Protein Albumin Triglycerides Blood Type Antibody Screen Impressions: Abdomen/Pelvis CT 06/20/18 22:27 IMPRESSION: New focal area of parenchymal consolidation within the posterior aspect of the right lower lung, image 33 which could be secondary to an acute infectious process/area of pneumonitis. Postobstructive atelectasis/pneumonitis is a consideration. Small right pleural fluid collection, decreased when compared with the prior exam. Partially visualized air within the soft tissues of the upper extremities could be secondary to recent instrumentation. Please correlate. No acute intra-abdominal abnormality. Chest CT 06/20/18 22:27 IMPRESSION: New focal area of parenchymal consolidation within the posterior aspect of the right lower lung, image 33 which could be secondary to an acute infectious process/area of pneumonitis. Postobstructive atelectasis/pneumonitis is a consideration. Small right pleural fluid collection, decreased when compared with the prior exam. Partially visualized air within the soft tissues of the upper extremities could be secondary to recent instrumentation. Please correlate. No acute intra-abdominal abnormality. Head CT 06/23/18 00:00 IMPRESSION: No acute intracranial findings. Head MRI 06/24/18 13:39 IMPRESSION: ATROPHY AND CHRONIC MICRO-VASCULAR ISCHEMIC CHANGES. OTHERWISE NORMAL MRI OF THE BRAIN WITHOUT INTRAVENOUS GADOLINIUM CONTRAST. EVIDENCE OF ACUTE STROKE: NO. Chest X-Ray 06/26/18 19:00 IMPRESSION: Improved aeration of the right lung base. Other findings are grossly stable 2010 [employer]- All Rights Reserved Assessment & Plan - Diagnosis (1) Acute respiratory failure with hypoxia and hypercapnia Is this a current diagnosis for this admission?: Yes Plan: intubated and sedated wean from vent as tolerated (2) Altered mental status Qualifiers: Altered mental status type: delirium Qualified Code(s): R41.0 - Disorientation, unspecified Is this a current diagnosis for this admission?: Yes Plan: Unchanged EEG showed diffuse abnormalities but no seizure activity (3) Septic shock Is this a current diagnosis for this admission?: Yes Plan: vasopressor (4) ARF (acute renal failure) Is this a current diagnosis for this admission?: Yes Plan: Labs- All tests 24 hr 06/23/18 06/24/18 06/24/18 04:15 07:35 10:35 Creatinine 1.41 H 1.76 H 1.79 H 06/25/18 06/26/18 06/26/18 08:22 04:20 10:10 Creatinine 1.60 H 1.56 H 1.57 H 06/26/18 14:25 Creatinine 1.62 H - Time Total Critical Time (Minutes): 55
--- NOTE | 2018-07-02 12:15 | PDOC PROGRESS REPORT ---
Subjective Progress Note for:: 06/30/18 Subjective:: stable Reason For Visit: SEPSIS DIABETES, COPD EXACERBATION PNEUMONIA Physical Exam Vital Signs: Temp Pulse Resp BP Pulse Ox 98.6 F 104 H 24 H 116/67 95 06/30/18 08:00 06/30/18 08:00 06/30/18 08:00 06/30/18 08:00 06/30/18 08:00 Intake & Output 06/29/18 06/30/18 07/01/18 06:59 06:59 06:59 Intake Total 576 395 Output Total 1605 1295 40 Balance -1029 -900 -40 Weight 81.3 kg 83 kg General appearance: PRESENT: no acute distress, cooperative, disheveled, obese Head exam: PRESENT: atraumatic, normocephalic Eye exam: PRESENT: conjunctiva pale, EOMI. ABSENT: nystagmus, periorbital swelling Mouth exam: PRESENT: dry mucosa, neck supple, tongue midline Neck exam: ABSENT: carotid bruit, JVD, lymphadenopathy, thyromegaly, tracheal deviation, tracheostomy - [id number] Respiratory exam: PRESENT: decreased breath sounds, prolonged expiratory phas, rhonchi, unlabored. ABSENT: rales, retraction, stridor Cardiovascular exam: PRESENT: RRR, +S1, +S2 Pulses: PRESENT: normal radial pulses GI/Abdominal exam: PRESENT: soft. ABSENT: tenderness - [id number] Gentrourinary exam: PRESENT: indwelling catheter Extremities exam: PRESENT: pedal edema. ABSENT: calf tenderness, clubbing, joint swelling Musculoskeletal exam: ABSENT: deformity, dislocation Neurological exam: PRESENT: alert, awake Psychiatric exam: PRESENT: agitated Skin exam: PRESENT: dry, warm Results Laboratory Results: 06/30/18 06:00 06/30/18 06:00 06/29/18 06/29/18 06/30/18 08:00 14:45 06:00 WBC 5.6 RBC 3.03 L Hgb 9.1 L Hct 26.2 L MCV 86 MCH 30.1 MCHC 34.9 RDW 15.5 H Plt Count 134 L Seg Neutrophils % Not Reportable Lymphocytes % Not Reportable Monocytes % Not Reportable Eosinophils % Not Reportable Basophils % Not Reportable Absolute Neutrophils Not Reportable Absolute Lymphocytes Not Reportable Absolute Monocytes Not Reportable Absolute Eosinophils Not Reportable Absolute Basophils Not Reportable Carbonic Acid 1.27 HCO3/H2CO3 Ratio 20:1 ABG pH 7.41 ABG pCO2 42.2 ABG pO2 35.3 L* ABG HCO3 25.8 H ABG O2 Saturation 67.9 L ABG Base Excess 1.0 FiO2 28% Sodium Potassium Chloride Carbon Dioxide Anion Gap BUN Creatinine Est GFR ( Amer) Est GFR (Non-Af Amer) Glucose Calcium Magnesium Total Bilirubin AST ALT Alkaline Phosphatase Total Protein Albumin Blood Type O POSITIVE Antibody Screen NEGATIVE 06/30/18 06/30/18 06:00 06:00 WBC 7.8 RBC 3.22 L Hgb 9.7 L Hct 27.8 L MCV 86 MCH 30.3 MCHC 35.1 RDW 15.8 H Plt Count 142 L Seg Neutrophils % Not Reportable Lymphocytes % Not Reportable Monocytes % Not Reportable Eosinophils % Not Reportable Basophils % Not Reportable Absolute Neutrophils Not Reportable Absolute Lymphocytes Not Reportable Absolute Monocytes Not Reportable Absolute Eosinophils Not Reportable Absolute Basophils Not Reportable Carbonic Acid HCO3/H2CO3 Ratio ABG pH ABG pCO2 ABG pO2 ABG HCO3 ABG O2 Saturation ABG Base Excess FiO2 Sodium 140.1 Potassium 3.5 L Chloride 105 Carbon Dioxide 25 Anion Gap 10 BUN 21 H Creatinine 1.17 Est GFR ( Amer) 55 L Est GFR (Non-Af Amer) 45 L Glucose 78 Calcium 8.4 Magnesium 2.1 Total Bilirubin 0.3 AST 18 ALT 16 Alkaline Phosphatase 46 Total Protein 4.7 L Albumin 2.7 L Blood Type Antibody Screen 06/27/18 10:37 Cerebral Spinal Fluid - Csf Gram Stain - Final 06/27/18 10:37 Cerebral Spinal Fluid - Csf CSF Culture - Final NO GROWTH 3 DAYS 06/26/18 10:10 NT-Pro-B Natriuret Pep [id number] H Impressions: Abdomen/Pelvis CT 06/20/18 22:27 IMPRESSION: New focal area of parenchymal consolidation within the posterior aspect of the right lower lung, image 33 which could be secondary to an acute infectious process/area of pneumonitis. Postobstructive atelectasis/pneumonitis is a consideration. Small right pleural fluid collection, decreased when compared with the prior exam. Partially visualized air within the soft tissues of the upper extremities could be secondary to recent instrumentation. Please correlate. No acute intra-abdominal abnormality. Chest CT 06/20/18 22:27 IMPRESSION: New focal area of parenchymal consolidation within the posterior aspect of the right lower lung, image 33 which could be secondary to an acute infectious process/area of pneumonitis. Postobstructive atelectasis/pneumonitis is a consideration. Small right pleural fluid collection, decreased when compared with the prior exam. Partially visualized air within the soft tissues of the upper extremities could be secondary to recent instrumentation. Please correlate. No acute intra-abdominal abnormality. Head CT 06/23/18 00:00 IMPRESSION: No acute intracranial findings. Head MRI 06/24/18 13:39 IMPRESSION: ATROPHY AND CHRONIC MICRO-VASCULAR ISCHEMIC CHANGES. OTHERWISE NORMAL MRI OF THE BRAIN WITHOUT INTRAVENOUS GADOLINIUM CONTRAST. EVIDENCE OF ACUTE STROKE: NO. Guidance Fluoroscopy 06/27/18 00:00 IMPRESSION: Lumbar puncture under fluoroscopy. No immediate complication. KUB X-Ray 06/27/18 00:00 IMPRESSION: Tip of the enteric tube likely in the proximal stomach with the sidehole near the GE junction. Mild gaseous distention of the colon copyright 2010 [employer]- All Rights Reserved Lumbar Puncture 06/27/18 00:00 IMPRESSION: Lumbar puncture under fluoroscopy. No immediate complication. Chest X-Ray 06/30/18 06:00 IMPRESSION: Interval extubation and removal of the enteric tube. Other findings are grossly stable copyright 2010 [employer]- All Rights Reserved Assessment & Plan - Diagnosis (1) Acute respiratory failure with hypoxia and hypercapnia Is this a current diagnosis for this admission?: Yes Plan: stable (2) Altered mental status Qualifiers: Altered mental status type: delirium Qualified Code(s): R41.0 - Disorientation, unspecified Is this a current diagnosis for this admission?: Yes Plan: Unchanged EEG showed diffuse abnormalities but no seizure activity (3) Septic shock Is this a current diagnosis for this admission?: Yes Plan: vasopressor (4) COPD (chronic obstructive pulmonary disease) Qualifiers: COPD type: unspecified COPD Qualified Code(s): J44.9 - Chronic obstructive pulmonary disease, unspecified Is this a current diagnosis for this admission?: Yes Plan: Still using vasopressor agents continue current bronchodilator therapy - Time Total Critical Time (Minutes): 40
--- NOTE | 2018-07-02 12:17 | PDOC PROGRESS REPORT ---
Subjective Progress Note for:: 07/01/18 Reason For Visit: ACUTE ON CHRONIC RESPIRATORY FAILURE Physical Exam Vital Signs: Temp Pulse Resp BP Pulse Ox 98.6 F 110 H 26 H 139/73 H 95 07/01/18 12:00 07/01/18 12:00 07/01/18 12:00 07/01/18 12:00 07/01/18 12:00 Intake & Output 06/30/18 07/01/18 07/02/18 06:59 06:59 06:59 Intake Total 395 240 Output Total 1295 620 135 Balance -900 -380 -135 Weight 83 kg 82.6 kg Results Laboratory Results: 07/01/18 05:20 07/01/18 05:20 06/30/18 07/01/18 07/01/18 14:39 05:20 05:20 WBC 8.8 RBC 3.34 L Hgb 10.0 L Hct 29.3 L MCV 88 MCH 30.0 MCHC 34.2 RDW 15.8 H Plt Count 123 L Seg Neutrophils % Not Reportable Lymphocytes % Not Reportable Monocytes % Not Reportable Eosinophils % Not Reportable Basophils % Not Reportable Absolute Neutrophils Not Reportable Absolute Lymphocytes Not Reportable Absolute Monocytes Not Reportable Absolute Eosinophils Not Reportable Absolute Basophils Not Reportable Carbonic Acid 1.26 1.29 HCO3/H2CO3 Ratio 20:1 20:1 ABG pH 7.40 7.41 ABG pCO2 41.7 42.7 ABG pO2 256.9 H 98.7 ABG HCO3 25.5 H 26.4 H ABG O2 Saturation 99.6 H 97.5 ABG Base Excess 0.7 1.5 FiO2 ROOM AIR 28% Sodium Potassium Chloride Carbon Dioxide Anion Gap BUN Creatinine Est GFR ( Amer) Est GFR (Non-Af Amer) Glucose Calcium Magnesium Total Bilirubin AST ALT Alkaline Phosphatase Total Protein Albumin 07/01/18 05:20 WBC RBC Hgb Hct MCV MCH MCHC RDW Plt Count Seg Neutrophils % Lymphocytes % Monocytes % Eosinophils % Basophils % Absolute Neutrophils Absolute Lymphocytes Absolute Monocytes Absolute Eosinophils Absolute Basophils Carbonic Acid HCO3/H2CO3 Ratio ABG pH ABG pCO2 ABG pO2 ABG HCO3 ABG O2 Saturation ABG Base Excess FiO2 Sodium 141.8 Potassium 3.9 Chloride 107 Carbon Dioxide 25 Anion Gap 10 BUN 21 H Creatinine 0.93 Est GFR ( Amer) > 60 Est GFR (Non-Af Amer) 59 L Glucose 111 H Calcium 8.4 Magnesium 2.0 Total Bilirubin 0.3 AST 16 ALT 23 Alkaline Phosphatase 45 Total Protein 4.5 L Albumin 2.6 L 06/26/18 10:10 NT-Pro-B Natriuret Pep [id number] H Impressions: Abdomen/Pelvis CT 06/20/18 22:27 IMPRESSION: New focal area of parenchymal consolidation within the posterior aspect of the right lower lung, image 33 which could be secondary to an acute infectious process/area of pneumonitis. Postobstructive atelectasis/pneumonitis is a consideration. Small right pleural fluid collection, decreased when compared with the prior exam. Partially visualized air within the soft tissues of the upper extremities could be secondary to recent instrumentation. Please correlate. No acute intra-abdominal abnormality. Chest CT 06/20/18 22:27 IMPRESSION: New focal area of parenchymal consolidation within the posterior aspect of the right lower lung, image 33 which could be secondary to an acute infectious process/area of pneumonitis. Postobstructive atelectasis/pneumonitis is a consideration. Small right pleural fluid collection, decreased when compared with the prior exam. Partially visualized air within the soft tissues of the upper extremities could be secondary to recent instrumentation. Please correlate. No acute intra-abdominal abnormality. Head CT 06/23/18 00:00 IMPRESSION: No acute intracranial findings. Head MRI 06/24/18 13:39 IMPRESSION: ATROPHY AND CHRONIC MICRO-VASCULAR ISCHEMIC CHANGES. OTHERWISE NORMAL MRI OF THE BRAIN WITHOUT INTRAVENOUS GADOLINIUM CONTRAST. EVIDENCE OF ACUTE STROKE: NO. Guidance Fluoroscopy 06/27/18 00:00 IMPRESSION: Lumbar puncture under fluoroscopy. No immediate complication. KUB X-Ray 06/27/18 00:00 IMPRESSION: Tip of the enteric tube likely in the proximal stomach with the sidehole near the GE junction. Mild gaseous distention of the colon copyright 2010 [employer]- All Rights Reserved Lumbar Puncture 06/27/18 00:00 IMPRESSION: Lumbar puncture under fluoroscopy. No immediate complication. Chest X-Ray 07/01/18 06:00 IMPRESSION: Little interval change copyright 2010 [employer]- All Rights Reserved Assessment & Plan - Diagnosis (1) Acute respiratory failure with hypoxia and hypercapnia Is this a current diagnosis for this admission?: Yes (2) Altered mental status Qualifiers: Altered mental status type: delirium Qualified Code(s): R41.0 - Disorientation, unspecified Is this a current diagnosis for this admission?: Yes (3) Septic shock Is this a current diagnosis for this admission?: Yes (4) COPD (chronic obstructive pulmonary disease) Qualifiers: COPD type: unspecified COPD Qualified Code(s): J44.9 - Chronic obstructive pulmonary disease, unspecified Is this a current diagnosis for this admission?: Yes
[2018-07-02] MEDS: SERTRALINE HCL 50 MG TABLET PO SCH (21:14)
[2018-07-03] MEDS: IPRATROPIUM BROMIDE 0.02% NEB 0.5 MG/2.5 ML AMPUL NEB SCH ×3 (02:04→14:56)
[2018-07-03] MEDS: LEVALBUTEROL HCL NEB 1.25 MG/3 ML AMPUL NEB SCH ×3 (02:04→14:56)
[2018-07-03] MEDS: ALBUTEROL SULFATE 0.083% NEB 2.5 MG/3 ML AMPUL NEB SCH ×3 (02:05→15:00)
[2018-07-03] MEDS: VANCOMYCIN HCL INJ 500 MG VIAL PO SCH ×3 (02:07→15:27)
[2018-07-03] MEDS: METHYLPREDNISOLONE INJ 125 MG/2 ML SDV IV SCH ×2 (05:19→18:20)
[2018-07-03] MEDS: LEVOTHYROXINE SODIUM 0.112 MG TABLET PO SCH (05:19)
[2018-07-03 05:36] LABS: HEMOGLOBIN 9.7 g/dL (12.0-15.5); MEAN CORPUSCULAR HEMOGLOBIN 30.1 pg (27.0-33.4); MEAN CORPUSCULAR HGB CONC 34.4 g/dL (32.0-36.0); MEAN CORPUSCULAR VOLUME 87 fl (80-97); PLATELET COUNT 100 10^3/uL (150-450); RED BLOOD COUNT 3.21 10^6/uL (3.72-5.28); RED CELL DISTRIBUTION WIDTH 15.6 % (11.5-14.0); WHITE BLOOD COUNT 11.7 10^3/uL (4.0-10.5)
[2018-07-03 06:02] LABS: ABSOLUTE LYMPHOCYTES# (MANUAL) 0.8 10^3/uL (0.5-4.7); ABSOLUTE MONOCYTES # (MANUAL) 0.5 10^3/uL (0.1-1.4); ABSOLUTE NEUTROPHILS# (MANUAL) 10.3 10^3/uL (1.7-8.2); BASOPHILS % (MANUAL) 0 % (0-2); EOSINOPHILS % (MANUAL) 1 % (0-6); LYMPHOCYTES % (MANUAL) 7 % (13-45); MONOCYTES % (MANUAL) 4 % (3-13); SEGMENTED NEUTROPHILS % (MAN) 88 % (42-78); TOTAL CELLS COUNTED 100; TOXIC GRANULATION 1+
[2018-07-03 06:03] LABS: ANISOCYTOSIS SLIGHT; PLATELET COMMENT ADEQUATE; PLATELET LARGE PRESENT; POIKILOCYTOSIS SLIGHT; SCHISTOCYTES SLIGHT; TEAR DROP CELLS 1+; TOXIC VACUOLATION PRESENT
[2018-07-03 06:06] LABS: ALANINE AMINOTRANSFERASE 16 U/L (9-52); ALBUMIN 2.5 g/dL (3.5-5.0); ALKALINE PHOSPHATASE 58 U/L (38-126); ANION GAP 7 (5-19); ASPARTATE AMINO TRANSFERASE 14 U/L (14-36); BILIRUBIN,DIRECT 0.2 mg/dL (0.0-0.4); BILIRUBIN,TOTAL 0.3 mg/dL (0.2-1.3); BLOOD UREA NITROGEN 22 mg/dL (7-20); CALCIUM 8.2 mg/dL (8.4-10.2); CARBON DIOXIDE 27 mmol/L (22-30); CHLORIDE 107 mmol/L (98-107); GLUCOSE 129 mg/dL (75-110); SODIUM 140.6 mmol/L (137-145); TOTAL PROTEIN 4.4 g/dL (6.3-8.2)
[2018-07-03] MEDS: LANSOPRAZOLE 30 MG TAB.RAP.DR PO SCH (09:49)
[2018-07-03] MEDS: TIOTROPIUM BROMIDE DPI 5 CAP/KIT (18 MCG/CAP) IH SCH (09:50)
[2018-07-03] MEDS: FLUTICASONE NASAL SPRAY 50 MCG/SPRY 120 SPRAY/16 GM NASL SCH ×2 (09:51→21:56)
[2018-07-03] MEDS: OLOPATADINE HCL 0.1% OPH SOLN 5 ML OU SCH ×2 (09:51→18:20)
[2018-07-03] MEDS: HEPARIN SOD (PORCINE) 5,000 UNIT/ML 1 ML SYRINGE SUBCUT SCH ×2 (09:51→21:55)
--- NOTE | 2018-07-03 16:41 | PDOC PROGRESS REPORT ---
Subjective Progress Note for:: 07/02/18 Subjective:: stable Reason For Visit: ACUTE ON CHRONIC RESPIRATORY FAILURE Physical Exam Vital Signs: Temp Pulse Resp BP Pulse Ox 99.1 F 105 H 16 147/82 H 96 07/03/18 07:51 07/03/18 07:51 07/03/18 07:51 07/03/18 07:51 07/03/18 07:51 Intake & Output 07/02/18 07/03/18 07/04/18 06:59 06:59 06:59 Intake Total 422 720 Output Total 455 725 Balance -33 -5 Weight 81.3 kg 81.8 kg General appearance: PRESENT: no acute distress, cooperative, disheveled, obese Head exam: PRESENT: atraumatic, normocephalic Eye exam: PRESENT: conjunctiva pale, EOMI. ABSENT: nystagmus, periorbital swelling Mouth exam: PRESENT: moist, neck supple, tongue midline Neck exam: ABSENT: carotid bruit, JVD, lymphadenopathy, thyromegaly, tracheal deviation, tracheostomy Respiratory exam: PRESENT: decreased breath sounds, prolonged expiratory phas, rhonchi, unlabored. ABSENT: retraction, stridor, tachypnea Cardiovascular exam: PRESENT: RRR, +S1, +S2 Pulses: PRESENT: normal radial pulses GI/Abdominal exam: PRESENT: soft. ABSENT: tenderness Extremities exam: PRESENT: pedal edema. ABSENT: calf tenderness, clubbing, joint swelling Musculoskeletal exam: ABSENT: deformity, dislocation Neurological exam: PRESENT: alert, awake Psychiatric exam: PRESENT: appropriate affect Skin exam: PRESENT: dry, warm Results Laboratory Results: 07/03/18 05:25 07/03/18 05:25 07/03/18 07/03/18 05:25 05:25 WBC 11.7 H RBC 3.21 L Hgb 9.7 L Hct 28.0 L MCV 87 MCH 30.1 MCHC 34.4 RDW 15.6 H Plt Count 100 L Seg Neutrophils % Not Reportable Lymphocytes % Not Reportable Monocytes % Not Reportable Eosinophils % Not Reportable Basophils % Not Reportable Absolute Neutrophils Not Reportable Absolute Lymphocytes Not Reportable Absolute Monocytes Not Reportable Absolute Eosinophils Not Reportable Absolute Basophils Not Reportable Sodium 140.6 Potassium 4.0 Chloride 107 Carbon Dioxide 27 Anion Gap 7 BUN 22 H Creatinine 0.73 Est GFR ( Amer) > 60 Est GFR (Non-Af Amer) > 60 Glucose 129 H Calcium 8.2 L Magnesium 1.6 Total Bilirubin 0.3 AST 14 ALT 16 Alkaline Phosphatase 58 Total Protein 4.4 L Albumin 2.5 L 06/26/18 10:10 NT-Pro-B Natriuret Pep [id number] H Impressions: Abdomen/Pelvis CT 06/20/18 22:27 IMPRESSION: New focal area of parenchymal consolidation within the posterior aspect of the right lower lung, image 33 which could be secondary to an acute infectious process/area of pneumonitis. Postobstructive atelectasis/pneumonitis is a consideration. Small right pleural fluid collection, decreased when compared with the prior exam. Partially visualized air within the soft tissues of the upper extremities could be secondary to recent instrumentation. Please correlate. No acute intra-abdominal abnormality. Chest CT 06/20/18 22:27 IMPRESSION: New focal area of parenchymal consolidation within the posterior aspect of the right lower lung, image 33 which could be secondary to an acute infectious process/area of pneumonitis. Postobstructive atelectasis/pneumonitis is a consideration. Small right pleural fluid collection, decreased when compared with the prior exam. Partially visualized air within the soft tissues of the upper extremities could be secondary to recent instrumentation. Please correlate. No acute intra-abdominal abnormality. Head CT 06/23/18 00:00 IMPRESSION: No acute intracranial findings. Head MRI 06/24/18 13:39 IMPRESSION: ATROPHY AND CHRONIC MICRO-VASCULAR ISCHEMIC CHANGES. OTHERWISE NORMAL MRI OF THE BRAIN WITHOUT INTRAVENOUS GADOLINIUM CONTRAST. EVIDENCE OF ACUTE STROKE: NO. Guidance Fluoroscopy 06/27/18 00:00 IMPRESSION: Lumbar puncture under fluoroscopy. No immediate complication. KUB X-Ray 06/27/18 00:00 IMPRESSION: Tip of the enteric tube likely in the proximal stomach with the sidehole near the GE junction. Mild gaseous distention of the colon copyright 2010 [employer]- All Rights Reserved Lumbar Puncture 06/27/18 00:00 IMPRESSION: Lumbar puncture under fluoroscopy. No immediate complication. Chest X-Ray 07/01/18 06:00 IMPRESSION: Little interval change copyright 2010 [employer]- All Rights Reserved Assessment & Plan - Diagnosis (1) Acute respiratory failure with hypoxia and hypercapnia Is this a current diagnosis for this admission?: Yes Plan: stable (2) Altered mental status Qualifiers: Altered mental status type: delirium Qualified Code(s): R41.0 - Disorientation, unspecified Is this a current diagnosis for this admission?: Yes Plan: Improved (3) Septic shock Is this a current diagnosis for this admission?: No (4) COPD (chronic obstructive pulmonary disease) Qualifiers: COPD type: unspecified COPD Qualified Code(s): J44.9 - Chronic obstructive pulmonary disease, unspecified Is this a current diagnosis for this admission?: Yes Plan: continue current bronchodilator therapy - Time Total Critical Time (Minutes): 40
--- NOTE | 2018-07-03 16:43 | PDOC PROGRESS REPORT ---
Subjective Progress Note for:: 07/03/18 Subjective:: stable nearing her baseline Reason For Visit: ACUTE ON CHRONIC RESPIRATORY FAILURE Physical Exam Vital Signs: Temp Pulse Resp BP Pulse Ox 99.1 F 105 H 16 147/82 H 96 07/03/18 07:51 07/03/18 07:51 07/03/18 07:51 07/03/18 07:51 07/03/18 07:51 Intake & Output 07/02/18 07/03/18 07/04/18 06:59 06:59 06:59 Intake Total 422 720 Output Total 455 725 Balance -33 -5 Weight 81.3 kg 81.8 kg General appearance: PRESENT: no acute distress, cooperative, disheveled, obese Head exam: PRESENT: atraumatic, normocephalic Eye exam: PRESENT: conjunctiva pale, EOMI. ABSENT: nystagmus, periorbital swelling, scleral icterus Mouth exam: PRESENT: moist, neck supple, tongue midline Neck exam: ABSENT: carotid bruit, JVD, lymphadenopathy, thyromegaly, tracheal deviation, tracheostomy Respiratory exam: PRESENT: decreased breath sounds, prolonged expiratory phas, rhonchi, unlabored. ABSENT: retraction, stridor, tachypnea Cardiovascular exam: PRESENT: RRR, +S1, +S2 Pulses: PRESENT: normal radial pulses GI/Abdominal exam: PRESENT: soft. ABSENT: tenderness Extremities exam: PRESENT: pedal edema. ABSENT: calf tenderness, clubbing, joint swelling Musculoskeletal exam: ABSENT: deformity, dislocation Neurological exam: PRESENT: alert, awake Psychiatric exam: PRESENT: appropriate affect Skin exam: PRESENT: dry, warm Results Laboratory Results: 07/03/18 05:25 07/03/18 05:25 07/03/18 07/03/18 05:25 05:25 WBC 11.7 H RBC 3.21 L Hgb 9.7 L Hct 28.0 L MCV 87 MCH 30.1 MCHC 34.4 RDW 15.6 H Plt Count 100 L Seg Neutrophils % Not Reportable Lymphocytes % Not Reportable Monocytes % Not Reportable Eosinophils % Not Reportable Basophils % Not Reportable Absolute Neutrophils Not Reportable Absolute Lymphocytes Not Reportable Absolute Monocytes Not Reportable Absolute Eosinophils Not Reportable Absolute Basophils Not Reportable Sodium 140.6 Potassium 4.0 Chloride 107 Carbon Dioxide 27 Anion Gap 7 BUN 22 H Creatinine 0.73 Est GFR ( Amer) > 60 Est GFR (Non-Af Amer) > 60 Glucose 129 H Calcium 8.2 L Magnesium 1.6 Total Bilirubin 0.3 AST 14 ALT 16 Alkaline Phosphatase 58 Total Protein 4.4 L Albumin 2.5 L 06/26/18 10:10 NT-Pro-B Natriuret Pep 23424 H Impressions: Abdomen/Pelvis CT 06/20/18 22:27 IMPRESSION: New focal area of parenchymal consolidation within the posterior aspect of the right lower lung, image 33 which could be secondary to an acute infectious process/area of pneumonitis. Postobstructive atelectasis/pneumonitis is a consideration. Small right pleural fluid collection, decreased when compared with the prior exam. Partially visualized air within the soft tissues of the upper extremities could be secondary to recent instrumentation. Please correlate. No acute intra-abdominal abnormality. Chest CT 06/20/18 22:27 IMPRESSION: New focal area of parenchymal consolidation within the posterior aspect of the right lower lung, image 33 which could be secondary to an acute infectious process/area of pneumonitis. Postobstructive atelectasis/pneumonitis is a consideration. Small right pleural fluid collection, decreased when compared with the prior exam. Partially visualized air within the soft tissues of the upper extremities could be secondary to recent instrumentation. Please correlate. No acute intra-abdominal abnormality. Head CT 06/23/18 00:00 IMPRESSION: No acute intracranial findings. Head MRI 06/24/18 13:39 IMPRESSION: ATROPHY AND CHRONIC MICRO-VASCULAR ISCHEMIC CHANGES. OTHERWISE NORMAL MRI OF THE BRAIN WITHOUT INTRAVENOUS GADOLINIUM CONTRAST. EVIDENCE OF ACUTE STROKE: NO. Guidance Fluoroscopy 06/27/18 00:00 IMPRESSION: Lumbar puncture under fluoroscopy. No immediate complication. KUB X-Ray 06/27/18 00:00 IMPRESSION: Tip of the enteric tube likely in the proximal stomach with the sidehole near the GE junction. Mild gaseous distention of the colon copyright 2010 [employer]- All Rights Reserved Lumbar Puncture 06/27/18 00:00 IMPRESSION: Lumbar puncture under fluoroscopy. No immediate complication. Chest X-Ray 07/01/18 06:00 IMPRESSION: Little interval change copyright 2010 [employer]- All Rights Reserved Assessment & Plan - Diagnosis (1) Acute respiratory failure with hypoxia and hypercapnia Is this a current diagnosis for this admission?: Yes Plan: stable at or near her baseline (2) Altered mental status Qualifiers: Altered mental status type: delirium Qualified Code(s): R41.0 - Disorientation, unspecified Is this a current diagnosis for this admission?: Yes Plan: Improved at or near her baseline (3) Septic shock Is this a current diagnosis for this admission?: No (4) COPD (chronic obstructive pulmonary disease) Qualifiers: COPD type: unspecified COPD Qualified Code(s): J44.9 - Chronic obstructive pulmonary disease, unspecified Is this a current diagnosis for this admission?: Yes Plan: continue current bronchodilator therapy - Time Total Critical Time (Minutes): 40
--- NOTE | 2018-07-03 18:16 | PDOC PROGRESS REPORT ---
Subjective Progress Note for:: 07/03/18 Subjective:: The patient is a 72-year-old female with a past medical history of CHF, CAD, CO , hypertension, COPD who is home O2 dependent, DM, hypothyroidism, lung cancer, GERD, arthritis, depression, dementia, anemia, and C. difficile infection who was admitted 06/21/2018 for septic shock, pneumonia, acute respiratory failure with hypoxia who subsequently developed active C. difficile colitis. The patient was seen on morning rounds. She was found sitting upright in bed eating her breakfast comfortably on room air. The patient does appear to remember me from 1 of her previous admissions and is oriented to self, place but not year. She is conversationally appropriate but slightly agitated from her known baseline. She reports occasional abdominal discomfort and nausea but denies vomiting. She is unable to verify when her last stool was (1-2 times daily per nursing). She denies fever, chills, chest pain, palpitations, dyspnea, orthopnea. She has no questions or concerns today. No concerns per nursing. Reason For Visit: ACUTE ON CHRONIC RESPIRATORY FAILURE Physical Exam Vital Signs: Temp Pulse Resp BP Pulse Ox 99.1 F 112 H 16 138/78 H 98 07/03/18 16:00 07/03/18 16:00 07/03/18 16:00 07/03/18 12:55 07/03/18 16:00 Intake & Output 07/02/18 07/03/18 07/04/18 06:59 06:59 06:59 Intake Total 422 720 582 Output Total 455 725 175 Balance -33 -5 407 Weight 81.3 kg 81.8 kg General appearance: PRESENT: no acute distress, cooperative, obese, well- developed, well-nourished Head exam: PRESENT: atraumatic, normocephalic Eye exam: PRESENT: conjunctiva pink, EOMI, PERRLA. ABSENT: scleral icterus Ear exam: PRESENT: normal external ear exam Mouth exam: PRESENT: moist, tongue midline Neck exam: ABSENT: carotid bruit, JVD, lymphadenopathy, thyromegaly Respiratory exam: PRESENT: decreased breath sounds - Bibasilar, prolonged expiratory phas, symmetrical, unlabored, wheezes. ABSENT: rales, rhonchi Cardiovascular exam: PRESENT: RRR, +S1, +S2, systolic murmur. ABSENT: diastolic murmur, rubs Pulses: PRESENT: normal dorsalis pedis pul Vascular exam: PRESENT: normal capillary refill GI/Abdominal exam: PRESENT: normal bowel sounds, soft, tenderness. ABSENT: distended, guarding, mass, organolmegaly, rebound Rectal exam: PRESENT: deferred Extremities exam: PRESENT: full ROM. ABSENT: calf tenderness, clubbing, pedal edema Neurological exam: PRESENT: alert, awake, oriented to person, oriented to place , CN II-XII grossly intact. ABSENT: oriented to time, oriented to situation, motor sensory deficit Psychiatric exam: PRESENT: agitated, appropriate affect, normal mood. ABSENT: homicidal ideation, suicidal ideation Skin exam: PRESENT: dry, intact, warm. ABSENT: cyanosis, rash Results Laboratory Results: 07/03/18 05:25 07/03/18 05:25 07/03/18 07/03/18 05:25 05:25 WBC 11.7 H RBC 3.21 L Hgb 9.7 L Hct 28.0 L MCV 87 MCH 30.1 MCHC 34.4 RDW 15.6 H Plt Count 100 L Seg Neutrophils % Not Reportable Lymphocytes % Not Reportable Monocytes % Not Reportable Eosinophils % Not Reportable Basophils % Not Reportable Absolute Neutrophils Not Reportable Absolute Lymphocytes Not Reportable Absolute Monocytes Not Reportable Absolute Eosinophils Not Reportable Absolute Basophils Not Reportable Sodium 140.6 Potassium 4.0 Chloride 107 Carbon Dioxide 27 Anion Gap 7 BUN 22 H Creatinine 0.73 Est GFR ( Amer) > 60 Est GFR (Non-Af Amer) > 60 Glucose 129 H Calcium 8.2 L Magnesium 1.6 Total Bilirubin 0.3 AST 14 ALT 16 Alkaline Phosphatase 58 Total Protein 4.4 L Albumin 2.5 L 06/26/18 10:10 NT-Pro-B Natriuret Pep 11123 H Impressions: Abdomen/Pelvis CT 06/20/18 22:27 IMPRESSION: New focal area of parenchymal consolidation within the posterior aspect of the right lower lung, image 33 which could be secondary to an acute infectious process/area of pneumonitis. Postobstructive atelectasis/pneumonitis is a consideration. Small right pleural fluid collection, decreased when compared with the prior exam. Partially visualized air within the soft tissues of the upper extremities could be secondary to recent instrumentation. Please correlate. No acute intra-abdominal abnormality. Chest CT 06/20/18 22:27 IMPRESSION: New focal area of parenchymal consolidation within the posterior aspect of the right lower lung, image 33 which could be secondary to an acute infectious process/area of pneumonitis. Postobstructive atelectasis/pneumonitis is a consideration. Small right pleural fluid collection, decreased when compared with the prior exam. Partially visualized air within the soft tissues of the upper extremities could be secondary to recent instrumentation. Please correlate. No acute intra-abdominal abnormality. Head CT 06/23/18 00:00 IMPRESSION: No acute intracranial findings. Head MRI 06/24/18 13:39 IMPRESSION: ATROPHY AND CHRONIC MICRO-VASCULAR ISCHEMIC CHANGES. OTHERWISE NORMAL MRI OF THE BRAIN WITHOUT INTRAVENOUS GADOLINIUM CONTRAST. EVIDENCE OF ACUTE STROKE: NO. Guidance Fluoroscopy 06/27/18 00:00 IMPRESSION: Lumbar puncture under fluoroscopy. No immediate complication. KUB X-Ray 06/27/18 00:00 IMPRESSION: Tip of the enteric tube likely in the proximal stomach with the sidehole near the GE junction. Mild gaseous distention of the colon copyright 2010 [employer]- All Rights Reserved Lumbar Puncture 06/27/18 00:00 IMPRESSION: Lumbar puncture under fluoroscopy. No immediate complication. Chest X-Ray 07/01/18 06:00 IMPRESSION: Little interval change copyright 2010 [employer]- All Rights Reserved Assessment & Plan - Diagnosis (1) Septic shock Is this a current diagnosis for this admission?: Yes Plan: Resolved; secondary to pneumonia (Streptococcus pneumonia, MRSA) and bacteremia (Streptococcus pneumoniae). The patient was admitted to the ICU and required intubation, mechanical ventilation, tube feeds, aggressive IV fluid resuscitation, and Levophed. Lumbar puncture was completed; CSF culture negative. Blood cultures (06/20/18) Streptococcus pneumoniae in 1 set. Urine culture no growth. Sputum culture with strep pneumoniae and MRSA. Repeat blood cultures () no growth at 5 days. Infectious disease was consulted; determined that the patient received an appropriate course of antibiotic therapy for treatment of her pneumococcal bacteremia and pneumonia. C. difficile colonization was reviewed; did not feel that the patient's clinical presentation was consistent with active C. difficile diarrhea. Patient was placed on p.o. vancomycin prophylactically while she was on IV Rocephin. It was recommended that the p.o. vancomycin be discontinued 1-2 days after completion of IV Rocephin. We will discontinue p.o. vancomycin today. (2) Acute respiratory failure with hypoxia and hypercapnia Is this a current diagnosis for this admission?: Yes Plan: Near baseline; patient is now maintaining oxygen saturations while on room air. Secondary to COPD exacerbation and pneumonia. The patient was extubated 06/29/18. We will continue supplemental oxygen as needed to maintain oxygen saturations greater than 89%. BiPAP nightly and as needed. Continue scheduled and as needed nebulizer treatments. Continue IV Solu-Medrol. Resume home dose Spiriva. Continue Flonase twice daily. Mucinex twice daily. Incentive spirometer and flutter valve to bedside. Pulmonology is consulted; appreciate Dr. Alvarez's assistance. (3) MARY LOU (acute kidney injury) Is this a current diagnosis for this admission?: Yes Plan: Resolved; secondary to septic shock. Avoid nephrotoxic medications as able. Encourage p.o. fluids. Nephrology was consulted; appreciate their expert evaluation recommendations. (4) Altered mental status Qualifiers: Altered mental status type: delirium Qualified Code(s): R41.0 - Disorientation, unspecified Is this a current diagnosis for this admission?: Yes Plan: The patient is alert and oriented to self, place, and situation. She remains agitated, though seems close to her baseline and is conversationally appropriate. She remembers me from previous admissions and we talk about her son and his significant other. She is noted to be with the and changes topics along with me easily. Altered mental status is likely secondary to acute metabolic encephalopathy in the setting of severe sepsis, pneumococcal bacteremia, and pneumonia. Head CT is benign. Head MRI without demonstrated chronic ischemic changes but otherwise normal MRI of the brain. LP and CSF examination reassuring. We will continue to provide supportive care; fall precautions. Monitor closely for indications of worsening mental status. (5) Anemia Qualifiers: Anemia type: unspecified type Qualified Code(s): D64.9 - Anemia, unspecified Is this a current diagnosis for this admission?: Yes Plan: Acute on chronic anemia; baseline hemoglobin of 8.1. Now s/p 1 unit of packed red blood cells. Hemoglobin appears to have stabilized at 9.7. No indications of active bleeding. We will place the patient on multivitamin with iron. Registered dietitian has been consulted; appreciate their recommendations. (6) C. difficile colitis Is this a current diagnosis for this admission?: Yes Plan: The patient does have a history of C. difficile colitis. Her C. difficile PCR's are noted to be positive during this admission; however, it is known that the PCR can remain positive for several months to a year following an active infection. Nursing reports that she is having 1-2 soft stools daily with minimal abdominal discomfort. Infectious disease was consulted; Dr. Garcia stated that the patient's clinical presentation did not support active C. difficile infection at this time. She was empirically placed on p.o. vancomycin while on IV Rocephin. Her p.o. vancomycin was continued for 3 days after IV antibiotics were discontinued. The patient remains afebrile, is tolerating a regular diet with minimal stooling , leukocytosis is overall improved (currently 11.7). Will discontinue p.o. vancomycin today. (7) CHF (congestive heart failure) Qualifiers: Heart failure type: diastolic Heart failure chronicity: acute on chronic Qualified Code(s): I50.33 - Acute on chronic diastolic (congestive) heart failure Is this a current diagnosis for this admission?: Yes Plan: Echocardiogram demonstrated LVEF of 65% with mild diastolic dysfunction. She appears euvolemic at this time; lung sounds positive for wheezing but without crackles, no pedal edema present. She is hemodynamically stable. We will continue strict I&Os. Daily weights. Will monitor closely for indications that the patient's antihypertensives and diuretics need to be resumed. Cardiac diet. (8) COPD exacerbation Is this a current diagnosis for this admission?: Yes Plan: The patient is maintaining oxygen saturations on room air while at rest. She does utilize home O2 at 2 L/min. On exam today she is noted to have prolonged expiratory phase with rhonchi and expiratory wheezing. We will continue supplemental oxygen as needed to maintain oxygen saturations greater than 89%. BiPAP nightly and as needed. Scheduled and as needed nebulizer treatments. IV Solu-Medrol; will begin weaning tomorrow. Daily Spiriva. Mucinex twice daily. Incentive spirometer and flutter valve to bedside. (9) Diabetes Qualifiers: Diabetes mellitus type: type 2 Diabetes mellitus intermediate project manager insulin use: without intermediate project manager use Diabetes mellitus complication status: with hyperglycemia Qualified Code(s): E11.65 - Type 2 diabetes mellitus with hyperglycemia Is this a current diagnosis for this admission?: Yes Plan: The patient's metformin is held while admitted. She is placed on a consistent carb diet with Accu-Cheks before meals and at bedtime and Humalog for sliding scale coverage. The registered dietitian has been consulted. Hypoglycemia protocol in place. (10) Encephalopathy Is this a current diagnosis for this admission?: Yes Plan: Improved; likely secondary to infectious process. Workup and plan as above. (11) Generalized weakness Is this a current diagnosis for this admission?: Yes Plan: The patient has debility at baseline; does use front wheel walker when at home but requires assistance for many transfers. Recently was admitted to SNF for short-term rehab. Now following prolonged ICU admission requiring intubation and ventilation. PT/OT evaluations have been ordered; recommending SNF at discharge. Out of bed twice daily with assistance. Fall precautions. (12) GERD (gastroesophageal reflux disease) Qualifiers: Esophagitis presence: esophagitis presence not specified Qualified Code(s) : K21.9 - Gastro-esophageal reflux disease without esophagitis Is this a current diagnosis for this admission?: Yes Plan: Prevacid daily. (13) History of lung cancer Is this a current diagnosis for this admission?: Yes (14) Hypocalcemia Is this a current diagnosis for this admission?: Yes Plan: Resolved; corrected calcium of 9.4 Diet has been advanced; registered dietitian is consulted. We will continue to monitor with daily chemistries. (15) Hypokalemia Is this a current diagnosis for this admission?: Yes Plan: Resolved; we will continue to monitor with daily chemistries. (16) Hypomagnesemia Is this a current diagnosis for this admission?: Yes (17) Hyponatremia Is this a current diagnosis for this admission?: Yes Plan: Resolved; we will continue to monitor with daily chemistries. (18) Hypothyroid Is this a current diagnosis for this admission?: Yes Plan: The patient's home dose of levothyroxine has been continued. (19) Pneumococcal bacteremia Is this a current diagnosis for this admission?: Yes Plan: Resolved. Blood culture (06/20/18) grew strep pneumonia in 1 set. Repeat blood cultures (06/21/2018) are negative at 5 days. Infectious disease was consulted; Dr. Garcia commented that the patient has received an adequate course of IV antibiotic therapy; recommended discontinuing antibiotics. Patient remains afebrile. WBCs overall improved. - Time Time Spent with patient: 35 or more minutes Medications reviewed and adjusted accordingly: Yes Anticipated discharge: SNF
[2018-07-03] MEDS: SERTRALINE HCL 50 MG TABLET PO SCH (21:55)
[2018-07-03] MEDS: GUAIFENESIN 600 MG TABLET.SA PO SCH (21:55)
[2018-07-04] MEDS: IPRATROPIUM BROMIDE 0.02% NEB 0.5 MG/2.5 ML AMPUL NEB SCH ×3 (00:31→16:05)
[2018-07-04] MEDS: LEVALBUTEROL HCL NEB 1.25 MG/3 ML AMPUL NEB SCH ×3 (00:31→16:05)
[2018-07-04] MEDS: LEVOTHYROXINE SODIUM 0.112 MG TABLET PO SCH (06:15)
[2018-07-04] MEDS: METHYLPREDNISOLONE INJ 125 MG/2 ML SDV IV SCH (06:17)
[2018-07-04 06:37] LABS: ARTERIAL BLOOD BASE EXCESS 0.5 mmol/L; ARTERIAL BLOOD H2CO3 1.35 mmol/L (1.05-1.35); ARTERIAL BLOOD HCO3 25.8 mmol/L (20-24); ARTERIAL BLOOD O2 SATURATION 94.2 % (94-98); ARTERIAL BLOOD PCO2 44.7 mmHg (35-45); ARTERIAL BLOOD PH 7.38 (7.35-7.45); ARTERIAL BLOOD PO2 72.4 mmHg (80-100); ARTERIAL BLOOD TOTAL CO2 27.2 mmol/L (21-25)
[2018-07-04 06:39] LABS: ARTERIAL BLOOD FIO2 21%
[2018-07-04 07:05] LABS: ABSOLUTE LYMPHOCYTES (AUTO) 0.5 10^3/uL (0.5-4.7); ABSOLUTE MONOCYTES (AUTO) 0.5 10^3/uL (0.1-1.4); ABSOLUTE NEUT (AUTO) 6.5 10^3/uL (1.7-8.2); BASOPHILS % (AUTO) 0.1 % (0-2); EOSINOPHILS % (AUTO) 0.1 % (0-6); HEMATOCRIT 29.6 % (36.0-47.0); LYMPHOCYTES % (AUTO) 6.2 % (13-45); MEAN CORPUSCULAR HEMOGLOBIN 29.8 pg (27.0-33.4); MEAN CORPUSCULAR HGB CONC 33.7 g/dL (32.0-36.0); MEAN CORPUSCULAR VOLUME 88 fl (80-97); MONOCYTES % (AUTO) 6.2 % (3-13); RED BLOOD COUNT 3.35 10^6/uL (3.72-5.28); RED CELL DISTRIBUTION WIDTH 15.8 % (11.5-14.0); SEGMENTED NEUTROPHILS % (AUTO) 87.4 % (42-78); TOTAL CELLS COUNTED % (AUTO) 100 %; WHITE BLOOD COUNT 7.4 10^3/uL (4.0-10.5)
[2018-07-04 07:16] LABS: ANION GAP 6 (5-19); BLOOD UREA NITROGEN 18 mg/dL (7-20); CALCIUM 8.4 mg/dL (8.4-10.2); CARBON DIOXIDE 29 mmol/L (22-30); CHLORIDE 110 mmol/L (98-107); GLUCOSE 96 mg/dL (75-110); SODIUM 144.5 mmol/L (137-145)
[2018-07-04 08:23] LABS: PLATELET COUNT 79 10^3/uL (150-450)
[2018-07-04 08:35] LABS: ANISOCYTOSIS 1+; HYPOCHROMASIA 1+; OVALOCYTES 1+; PLATELET COMMENT DECREASED; POIKILOCYTOSIS 1+; POLYCHROMASIA SLIGHT; TEAR DROP CELLS SLIGHT; TOXIC GRANULATION 2+
[2018-07-04] MEDS: MULTIVITAMINS W-IRON TABLET, CHEWABLE PO SCH (12:25)
[2018-07-04] MEDS: FLUTICASONE NASAL SPRAY 50 MCG/SPRY 120 SPRAY/16 GM NASL SCH ×2 (12:25→22:47)
[2018-07-04] MEDS: TIOTROPIUM BROMIDE DPI 5 CAP/KIT (18 MCG/CAP) IH SCH (12:27)
[2018-07-04] MEDS: LANSOPRAZOLE 30 MG TAB.RAP.DR PO SCH (12:27)
[2018-07-04] MEDS: GUAIFENESIN 600 MG TABLET.SA PO SCH ×2 (12:27→22:47)
[2018-07-04 12:41] LABS: ARTERIAL BLOOD BASE EXCESS 0.4 mmol/L; ARTERIAL BLOOD H2CO3 1.25 mmol/L (1.05-1.35); ARTERIAL BLOOD HCO3 25.2 mmol/L (20-24); ARTERIAL BLOOD O2 SATURATION 93.5 % (94-98); ARTERIAL BLOOD PCO2 41.6 mmHg (35-45); ARTERIAL BLOOD PO2 67.5 mmHg (80-100); ARTERIAL BLOOD TOTAL CO2 26.5 mmol/L (21-25)
[2018-07-04 12:42] LABS: ARTERIAL BLOOD FIO2 ROOM AIR
--- NOTE | 2018-07-04 13:36 | PDOC PROGRESS REPORT ---
Subjective Progress Note for:: 07/04/18 Subjective:: The patient is a 72-year-old female with a past medical history of CHF, CAD, HI , hypertension, COPD who is home O2 dependent, DM, hypothyroidism, lung cancer, GERD, arthritis, depression, dementia, anemia, and C. difficile infection who was admitted 06/21/2018 for septic shock, pneumonia, acute respiratory failure with hypoxia who subsequently developed active C. difficile colitis. The patient was seen on morning rounds. She was found sitting upright in bed on BiPAP. Per nursing, the patient was minimally responsive to sternal rub this morning. Stat laboratory evaluation including ABG were reassuring. On my evaluation, the patient does wake when I say her name; opens her eyes briefly but has difficulty keeping them awake. 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 She is checked on approximately an hour later and at that time is noted to be awake and waves at me when I say hello to her from the doorway. At that time, she was orientated to self and place but did not answer further questions. Reason For Visit: ACUTE ON CHRONIC RESPIRATORY FAILURE Physical Exam Vital Signs: Temp Pulse Resp BP Pulse Ox 99.3 F 86 14 120/65 93 07/03/18 23:00 07/04/18 08:37 07/04/18 12:37 07/04/18 04:09 07/04/18 12:37 Intake & Output 07/03/18 07/04/18 07/05/18 06:59 06:59 06:59 Intake Total 720 582 Output Total 725 175 Balance -5 407 Weight 81.8 kg General appearance: PRESENT: hard of hearing, mild distress, obese, well- developed, well-nourished Head exam: PRESENT: atraumatic, normocephalic Eye exam: PRESENT: conjunctiva pink, EOMI, PERRLA. ABSENT: scleral icterus Ear exam: PRESENT: normal external ear exam Mouth exam: PRESENT: moist, tongue midline Neck exam: ABSENT: carotid bruit, JVD, lymphadenopathy, thyromegaly Respiratory exam: PRESENT: decreased breath sounds - Bibasilar, prolonged expiratory phas, rhonchi, symmetrical, unlabored. ABSENT: rales, wheezes Cardiovascular exam: PRESENT: RRR, +S1, +S2, systolic murmur. ABSENT: diastolic murmur, rubs Pulses: PRESENT: normal dorsalis pedis pul Vascular exam: PRESENT: normal capillary refill GI/Abdominal exam: PRESENT: normal bowel sounds, soft. ABSENT: distended, guarding, mass, organolmegaly, rebound, tenderness Rectal exam: PRESENT: deferred Extremities exam: PRESENT: full ROM. ABSENT: calf tenderness, clubbing, pedal edema Neurological exam: PRESENT: alert, awake, oriented to person, oriented to place , CN II-XII grossly intact, other - Lethargic. ABSENT: oriented to time, oriented to situation, motor sensory deficit Psychiatric exam: PRESENT: appropriate affect, normal mood. ABSENT: homicidal ideation, suicidal ideation Skin exam: PRESENT: dry, intact, warm. ABSENT: cyanosis, rash Results Laboratory Results: 07/04/18 06:23 07/04/18 06:23 07/04/18 07/04/18 07/04/18 06:23 06:23 06:25 WBC 7.4 RBC 3.35 L Hgb 10.0 L Hct 29.6 L MCV 88 MCH 29.8 MCHC 33.7 RDW 15.8 H Plt Count 79 L Seg Neutrophils % 87.4 H Lymphocytes % 6.2 L Monocytes % 6.2 Eosinophils % 0.1 Basophils % 0.1 Absolute Neutrophils 6.5 Absolute Lymphocytes 0.5 Absolute Monocytes 0.5 Absolute Eosinophils 0.0 Absolute Basophils 0.0 Carbonic Acid 1.35 HCO3/H2CO3 Ratio 19:1 ABG pH 7.38 ABG pCO2 44.7 ABG pO2 72.4 L ABG HCO3 25.8 H ABG O2 Saturation 94.2 ABG Base Excess 0.5 FiO2 21% Sodium 144.5 Potassium 4.0 Chloride 110 H Carbon Dioxide 29 Anion Gap 6 BUN 18 Creatinine 0.68 Est GFR ( Amer) > 60 Est GFR (Non-Af Amer) > 60 Glucose 96 Calcium 8.4 Magnesium 1.7 07/04/18 12:10 WBC RBC Hgb Hct MCV MCH MCHC RDW Plt Count Seg Neutrophils % Lymphocytes % Monocytes % Eosinophils % Basophils % Absolute Neutrophils Absolute Lymphocytes Absolute Monocytes Absolute Eosinophils Absolute Basophils Carbonic Acid 1.25 HCO3/H2CO3 Ratio 20:1 ABG pH 7.40 ABG pCO2 41.6 ABG pO2 67.5 L ABG HCO3 25.2 H ABG O2 Saturation 93.5 L ABG Base Excess 0.4 FiO2 ROOM AIR Sodium Potassium Chloride Carbon Dioxide Anion Gap BUN Creatinine Est GFR ( Amer) Est GFR (Non-Af Amer) Glucose Calcium Magnesium 06/26/18 10:10 NT-Pro-B Natriuret Pep 80112 H Impressions: Abdomen/Pelvis CT 06/20/18 22:27 IMPRESSION: New focal area of parenchymal consolidation within the posterior aspect of the right lower lung, image 33 which could be secondary to an acute infectious process/area of pneumonitis. Postobstructive atelectasis/pneumonitis is a consideration. Small right pleural fluid collection, decreased when compared with the prior exam. Partially visualized air within the soft tissues of the upper extremities could be secondary to recent instrumentation. Please correlate. No acute intra-abdominal abnormality. Chest CT 06/20/18 22:27 IMPRESSION: New focal area of parenchymal consolidation within the posterior aspect of the right lower lung, image 33 which could be secondary to an acute infectious process/area of pneumonitis. Postobstructive atelectasis/pneumonitis is a consideration. Small right pleural fluid collection, decreased when compared with the prior exam. Partially visualized air within the soft tissues of the upper extremities could be secondary to recent instrumentation. Please correlate. No acute intra-abdominal abnormality. Head CT 06/23/18 00:00 IMPRESSION: No acute intracranial findings. Head MRI 06/24/18 13:39 IMPRESSION: ATROPHY AND CHRONIC MICRO-VASCULAR ISCHEMIC CHANGES. OTHERWISE NORMAL MRI OF THE BRAIN WITHOUT INTRAVENOUS GADOLINIUM CONTRAST. EVIDENCE OF ACUTE STROKE: NO. Guidance Fluoroscopy 06/27/18 00:00 IMPRESSION: Lumbar puncture under fluoroscopy. No immediate complication. KUB X-Ray 06/27/18 00:00 IMPRESSION: Tip of the enteric tube likely in the proximal stomach with the sidehole near the GE junction. Mild gaseous distention of the colon copyright 2010 [employer]- All Rights Reserved Lumbar Puncture 06/27/18 00:00 IMPRESSION: Lumbar puncture under fluoroscopy. No immediate complication. Chest X-Ray 07/01/18 06:00 IMPRESSION: Little interval change copyright 2010 [employer]- All Rights Reserved Assessment & Plan - Diagnosis (1) Septic shock Is this a current diagnosis for this admission?: Yes Plan: Resolved; secondary to pneumonia (Streptococcus pneumonia, MRSA) and bacteremia (Streptococcus pneumoniae). The patient was admitted to the ICU and required intubation, mechanical ventilation, tube feeds, aggressive IV fluid resuscitation, and Levophed. Lumbar puncture was completed; CSF culture negative. Blood cultures (06/20/18) Streptococcus pneumoniae in 1 set. Urine culture no growth. Sputum culture with strep pneumoniae and MRSA. Repeat blood cultures () no growth at 5 days. Infectious disease was consulted; determined that the patient received an appropriate course of antibiotic therapy for treatment of her pneumococcal bacteremia and pneumonia. C. difficile colonization was reviewed; did not feel that the patient's clinical presentation was consistent with active C. difficile diarrhea. Patient was placed on p.o. vancomycin prophylactically while she was on IV Rocephin. It was recommended that the p.o. vancomycin be discontinued 1-2 days after completion of IV Rocephin. P.o. vancomycin discontinued yesterday. (2) Acute respiratory failure with hypoxia and hypercapnia Is this a current diagnosis for this admission?: Yes Plan: Near baseline; does require BiPAP overnight. Secondary to COPD exacerbation and pneumonia. The patient was extubated 06/29/18. ABG on room air showed compensated respiratory acidosis with mild hypoxia; pH 7.38, PCO2 44.7, PO2 72.4, HCO3 25.8. Repeat ABG with BiPAP this afternoon is unchanged. We will continue supplemental oxygen as needed to maintain oxygen saturations greater than 89%. BiPAP nightly and as needed. Continue scheduled and as needed nebulizer treatments. Continue IV Solu-Medrol; will begin weaning today. Resume home dose Spiriva. Continue Flonase twice daily. Mucinex twice daily. Incentive spirometer and flutter valve to bedside. Pulmonology is consulted; appreciate Dr. Alvarez's assistance. (3) MARY LOU (acute kidney injury) Is this a current diagnosis for this admission?: Yes Plan: Resolved; secondary to septic shock. Avoid nephrotoxic medications as able. Encourage p.o. fluids. Nephrology was consulted; appreciate their expert evaluation recommendations. (4) Altered mental status Qualifiers: Altered mental status type: delirium Qualified Code(s): R41.0 - Disorientation, unspecified Is this a current diagnosis for this admission?: Yes Plan: Waxing and waning; patient is somnolent today. She did wake this afternoon to answer questions briefly but remains fatigued. The patient is alert and oriented to self, place, and situation. Altered mental status is likely secondary to acute metabolic encephalopathy in the setting of severe sepsis, pneumococcal bacteremia, pneumonia, and mild hypoxia. Head CT is benign. Head MRI without demonstrated chronic ischemic changes but otherwise normal MRI of the brain. LP and CSF examination reassuring. We will continue to provide supportive care; fall precautions. Discussed with nursing importance of continuing BiPAP when sleeping. Consider head CT if the patient does not continue to improve. Monitor closely for indications of worsening mental status. (5) Anemia Qualifiers: Anemia type: unspecified type Qualified Code(s): D64.9 - Anemia, unspecified Is this a current diagnosis for this admission?: Yes Plan: Acute on chronic anemia; baseline hemoglobin of 8.1. Now s/p 1 unit of packed red blood cells. Hemoglobin appears to have stabilized at 10.0 No indications of active bleeding. We will place the patient on multivitamin with iron. Registered dietitian has been consulted; appreciate their recommendations. (6) C. difficile colitis Is this a current diagnosis for this admission?: Yes Plan: The patient does have a history of C. difficile colitis. Her C. difficile PCR's are noted to be positive during this admission; however, it is known that the PCR can remain positive for several months to a year following an active infection. Nursing reports that she is having 1-2 soft stools daily with minimal abdominal discomfort. Infectious disease was consulted; Dr. Garcia stated that the patient's clinical presentation did not support active C. difficile infection at this time. She was empirically placed on p.o. vancomycin while on IV Rocephin. Her p.o. vancomycin was continued for 3 days after IV antibiotics were discontinued. The patient remains afebrile, is tolerating a regular diet with minimal stooling , leukocytosis has resolved. P.o. vancomycin discontinued yesterday. (7) CHF (congestive heart failure) Qualifiers: Heart failure type: diastolic Heart failure chronicity: acute on chronic Qualified Code(s): I50.33 - Acute on chronic diastolic (congestive) heart failure Is this a current diagnosis for this admission?: Yes Plan: Echocardiogram demonstrated LVEF of 65% with mild diastolic dysfunction. She appears euvolemic at this time; lung sounds positive for wheezing but without crackles, no pedal edema present. She is hemodynamically stable. We will continue strict I&Os. Daily weights. Will monitor closely for indications that the patient's antihypertensives and diuretics need to be resumed. Cardiac diet. (8) COPD exacerbation Is this a current diagnosis for this admission?: Yes Plan: The patient is maintaining oxygen saturations on room air while at rest. She does utilize home O2 at 2 L/min. On exam today she is noted to have prolonged expiratory phase with rhonchi and expiratory wheezing. We will continue supplemental oxygen as needed to maintain oxygen saturations greater than 89%. BiPAP nightly and as needed. Scheduled and as needed nebulizer treatments. IV Solu-Medrol; will begin weaning today. Daily Spiriva. Mucinex twice daily. Incentive spirometer and flutter valve to bedside. 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 She is placed on a consistent carb diet with Accu-Cheks before meals and at bedtime and Humalog for sliding scale coverage. The registered dietitian has been consulted. Hypoglycemia protocol in place. (10) Encephalopathy Is this a current diagnosis for this admission?: Yes Plan: Improved; likely secondary to infectious process. Workup and plan as above. (11) Generalized weakness Is this a current diagnosis for this admission?: Yes Plan: The patient has debility at baseline; does use front wheel walker when at home but requires assistance for many transfers. Recently was admitted to SNF for short-term rehab. Now following prolonged ICU admission requiring intubation and ventilation. PT/OT evaluations have been ordered; recommending SNF at discharge. Out of bed twice daily with assistance. Fall precautions. (12) GERD (gastroesophageal reflux disease) Qualifiers: Esophagitis presence: esophagitis presence not specified Qualified Code(s) : K21.9 - Gastro-esophageal reflux disease without esophagitis Is this a current diagnosis for this admission?: Yes Plan: Prevacid daily. (13) History of lung cancer Is this a current diagnosis for this admission?: Yes (14) Hypocalcemia Is this a current diagnosis for this admission?: Yes Plan: Resolved; corrected calcium of 9.4 Diet has been advanced; registered dietitian is consulted. We will continue to monitor with daily chemistries. (15) Hypokalemia Is this a current diagnosis for this admission?: Yes Plan: Resolved; we will continue to monitor with daily chemistries. (16) Hypomagnesemia Is this a current diagnosis for this admission?: Yes Plan: Resolved. Magnesium 1.7 today. (17) Hyponatremia Is this a current diagnosis for this admission?: Yes Plan: Resolved; we will continue to monitor with daily chemistries. (18) Hypothyroid Is this a current diagnosis for this admission?: Yes Plan: The patient's home dose of levothyroxine has been continued. (19) Pneumococcal bacteremia Is this a current diagnosis for this admission?: Yes Plan: Resolved. Blood culture (06/20/18) grew strep pneumonia in 1 set. Repeat blood cultures (06/21/2018) are negative at 5 days. Infectious disease was consulted; Dr. Garcia commented that the patient has received an adequate course of IV antibiotic therapy; recommended discontinuing antibiotics. Patient remains afebrile and leukocytosis has resolved. - Time Time Spent with patient: 25-34 minutes Medications reviewed and adjusted accordingly: Yes Anticipated discharge: SNF
[2018-07-04] MEDS: HEPARIN SOD (PORCINE) 5,000 UNIT/ML 1 ML SYRINGE SUBCUT SCH ×2 (19:12→22:43)
[2018-07-04] MEDS: OLOPATADINE HCL 0.1% OPH SOLN 5 ML OU SCH ×2 (19:13→20:11)
[2018-07-04] MEDS: METHYLPREDNISOLONE INJ 40 MG/1 ML SDV IV SCH ×2 (20:11→22:45)
[2018-07-04] MEDS: SERTRALINE HCL 50 MG TABLET PO SCH (22:47)
[2018-07-05] MEDS: LEVALBUTEROL HCL NEB 1.25 MG/3 ML AMPUL NEB SCH ×3 (00:18→15:23)
[2018-07-05] MEDS: IPRATROPIUM BROMIDE 0.02% NEB 0.5 MG/2.5 ML AMPUL NEB SCH ×3 (00:18→15:23)
[2018-07-05] MEDS: LEVOTHYROXINE SODIUM 0.112 MG TABLET PO SCH (05:24)
[2018-07-05] MEDS: METHYLPREDNISOLONE INJ 40 MG/1 ML SDV IV SCH ×2 (05:24→14:33)
[2018-07-05 06:46] LABS: HEMATOCRIT 28.4 % (36.0-47.0); HEMOGLOBIN 9.5 g/dL (12.0-15.5); MEAN CORPUSCULAR HEMOGLOBIN 29.6 pg (27.0-33.4); MEAN CORPUSCULAR HGB CONC 33.4 g/dL (32.0-36.0); MEAN CORPUSCULAR VOLUME 89 fl (80-97); WHITE BLOOD COUNT 8.1 10^3/uL (4.0-10.5)
[2018-07-05 06:56] LABS: ANION GAP 8 (5-19); BLOOD UREA NITROGEN 23 mg/dL (7-20); CALCIUM 8.2 mg/dL (8.4-10.2); CARBON DIOXIDE 27 mmol/L (22-30); CHLORIDE 109 mmol/L (98-107); GLUCOSE 177 mg/dL (75-110); POTASSIUM 3.8 mmol/L (3.6-5.0); SODIUM 143.7 mmol/L (137-145)
[2018-07-05 07:09] LABS: PLATELET COUNT 76 10^3/uL (150-450)
[2018-07-05] MEDS: MULTIVITAMINS W-IRON TABLET, CHEWABLE PO SCH (10:38)
[2018-07-05] MEDS: OLOPATADINE HCL 0.1% OPH SOLN 5 ML OU SCH ×2 (10:38→17:17)
[2018-07-05] MEDS: GUAIFENESIN 600 MG TABLET.SA PO SCH (10:38)
[2018-07-05] MEDS: LANSOPRAZOLE 30 MG TAB.RAP.DR PO SCH (10:38)
[2018-07-05] MEDS: FLUTICASONE NASAL SPRAY 50 MCG/SPRY 120 SPRAY/16 GM NASL SCH (10:38)
[2018-07-05] MEDS: HEPARIN SOD (PORCINE) 5,000 UNIT/ML 1 ML SYRINGE SUBCUT SCH (10:40)
[2018-07-05] MEDS: TIOTROPIUM BROMIDE DPI 5 CAP/KIT (18 MCG/CAP) IH SCH (10:40)
--- NOTE | 2018-07-05 13:29 | PDOC PROGRESS REPORT ---
Subjective Progress Note for:: 07/05/18 Subjective:: Awake cooperative without complaints Reason For Visit: ACUTE ON CHRONIC RESPIRATORY FAILURE Physical Exam Vital Signs: Temp Pulse Resp BP Pulse Ox 98.9 F 117 H 16 120/61 96 07/05/18 09:11 07/05/18 09:11 07/05/18 09:11 07/05/18 09:11 07/05/18 09:11 Intake & Output 07/04/18 07/05/18 07/06/18 06:59 06:59 06:59 Intake Total 582 576 Output Total 175 1350 50 Balance 407 -774 -50 Weight 78.8 kg General appearance: PRESENT: no acute distress, cooperative, disheveled Head exam: PRESENT: atraumatic, normocephalic Eye exam: PRESENT: conjunctiva pale, EOMI. ABSENT: nystagmus, periorbital swelling Mouth exam: PRESENT: dry mucosa, neck supple, tongue midline Neck exam: ABSENT: carotid bruit, JVD, lymphadenopathy, thyromegaly, tracheal deviation, tracheostomy Respiratory exam: PRESENT: decreased breath sounds, prolonged expiratory phas, rales, rhonchi, unlabored, wheezes. ABSENT: retraction, stridor Cardiovascular exam: PRESENT: irregular rhythm Pulses: PRESENT: normal radial pulses GI/Abdominal exam: PRESENT: soft. ABSENT: tenderness Extremities exam: PRESENT: pedal edema. ABSENT: calf tenderness, clubbing, joint swelling Musculoskeletal exam: ABSENT: deformity, dislocation Neurological exam: PRESENT: alert, awake Psychiatric exam: PRESENT: appropriate affect Skin exam: PRESENT: dry, warm Results Laboratory Results: 07/05/18 06:10 07/05/18 06:10 07/05/18 07/05/18 06:10 06:10 WBC 8.1 RBC 3.20 L Hgb 9.5 L Hct 28.4 L MCV 89 MCH 29.6 MCHC 33.4 RDW 16.0 H Plt Count 76 L Sodium 143.7 Potassium 3.8 Chloride 109 H Carbon Dioxide 27 Anion Gap 8 BUN 23 H Creatinine 0.73 Est GFR ( Amer) > 60 Est GFR (Non-Af Amer) > 60 Glucose 177 H Calcium 8.2 L 06/26/18 10:10 NT-Pro-B Natriuret Pep 92292 H Impressions: Abdomen/Pelvis CT 06/20/18 22:27 IMPRESSION: New focal area of parenchymal consolidation within the posterior aspect of the right lower lung, image 33 which could be secondary to an acute infectious process/area of pneumonitis. Postobstructive atelectasis/pneumonitis is a consideration. Small right pleural fluid collection, decreased when compared with the prior exam. Partially visualized air within the soft tissues of the upper extremities could be secondary to recent instrumentation. Please correlate. No acute intra-abdominal abnormality. Chest CT 06/20/18 22:27 IMPRESSION: New focal area of parenchymal consolidation within the posterior aspect of the right lower lung, image 33 which could be secondary to an acute infectious process/area of pneumonitis. Postobstructive atelectasis/pneumonitis is a consideration. Small right pleural fluid collection, decreased when compared with the prior exam. Partially visualized air within the soft tissues of the upper extremities could be secondary to recent instrumentation. Please correlate. No acute intra-abdominal abnormality. Head CT 06/23/18 00:00 IMPRESSION: No acute intracranial findings. Head MRI 06/24/18 13:39 IMPRESSION: ATROPHY AND CHRONIC MICRO-VASCULAR ISCHEMIC CHANGES. OTHERWISE NORMAL MRI OF THE BRAIN WITHOUT INTRAVENOUS GADOLINIUM CONTRAST. EVIDENCE OF ACUTE STROKE: NO. Guidance Fluoroscopy 06/27/18 00:00 IMPRESSION: Lumbar puncture under fluoroscopy. No immediate complication. KUB X-Ray 06/27/18 00:00 IMPRESSION: Tip of the enteric tube likely in the proximal stomach with the sidehole near the GE junction. Mild gaseous distention of the colon copyright 2010 [email or web address]- All Rights Reserved Lumbar Puncture 06/27/18 00:00 IMPRESSION: Lumbar puncture under fluoroscopy. No immediate complication. Chest X-Ray 07/01/18 06:00 IMPRESSION: Little interval change copyright 2010 [email or web address]- All Rights Reserved Assessment & Plan - Diagnosis (1) Acute respiratory failure with hypoxia and hypercapnia Is this a current diagnosis for this admission?: Yes Plan: Acute phase has resolved (2) Altered mental status Qualifiers: Altered mental status type: delirium Qualified Code(s): R41.0 - Disorientation, unspecified Is this a current diagnosis for this admission?: Yes Plan: Improved at or near her baseline (3) Septic shock Is this a current diagnosis for this admission?: No (4) COPD (chronic obstructive pulmonary disease) Qualifiers: COPD type: unspecified COPD Qualified Code(s): J44.9 - Chronic obstructive pulmonary disease, unspecified Is this a current diagnosis for this admission?: Yes Plan: continue current bronchodilator therapy;Patient continues to wheeze off and on
[2018-07-05] MEDS: INSULIN REG, HUMAN 100 UNIT/ML 3 ML VIAL (PYX) SUBCUT PRN (14:33)
--- NOTE | 2018-07-05 14:46 | PDOC TRANSFER SUMMARY ---
General - Admit/Disc Date/PCP Admission Date/Primary Care Provider: 06/21/18 00:15 BAKARI VELARDE MD Discharge Date: 07/05/18 - Discharge Diagnosis (1) Septic shock Is this a current diagnosis for this admission?: Yes Summary: Resolved. Secondary to pneumonia (Streptococcus pneumonia, MRSA) and bacteremia ( Streptococcus pneumoniae). The patient was admitted to the ICU and required intubation, mechanical ventilation, tube feeds, aggressive IV fluid resuscitation, and Levophed. Lumbar puncture was completed; CSF culture negative. Blood cultures (06/20/18) Streptococcus pneumoniae in 1 set. Urine culture no growth. Sputum culture with strep pneumoniae and MRSA. Repeat blood cultures () no growth at 5 days. Infectious disease was consulted; determined that the patient received an appropriate course of antibiotic therapy for treatment of her pneumococcal bacteremia and pneumonia. ID did not feel that the patient's clinical presentation was consistent with active C. difficile diarrhea. Patient had been placed on p.o. vancomycin prophylactically while she was on IV Rocephin. Per IDs recommendations, the p.o. vancomycin was discontinued a few days following completion of her IV Rocephin. Since discontinuation of antibiotic therapy, the patient has remained afebrile with a normal WBC. (2) Acute respiratory failure with hypoxia and hypercapnia Is this a current diagnosis for this admission?: Yes Summary: At baseline; patient now requires BiPAP overnight. Acute respiratory failure is secondary to COPD exacerbation with current pneumonia. The patient was extubated 06/29/18. ABG on room air showed compensated respiratory acidosis with mild hypoxia; pH 7.38, PCO2 44.7, PO2 72.4, HCO3 25.8. Recommending continuing supplemental oxygen at 2-3 L/min to maintain oxygen saturations to an 89 and 92%. The patient requires BiPAP nightly at settings of 14/5 with an FiO2 of 28%. She should continue scheduled and as needed nebulizer treatments. She has been transitioned to p.o. prednisone today and provided a prescription for a prednisone taper. Recommend continuing her home dose Spiriva and Flonase twice daily. Recommend following up with pulmonology in 2-4 weeks or sooner as needed. (3) MARY LOU (acute kidney injury) Is this a current diagnosis for this admission?: Yes Summary: Resolved; secondary to septic shock. (4) Altered mental status Is this a current diagnosis for this admission?: Yes Summary: Resolved; the patient is now at her baseline mental status. Secondary to acute metabolic encephalopathy in the setting of severe sepsis, pneumococcal bacteremia, pneumonia, and mild hypoxia. Head CT is benign. Head MRI without demonstrated chronic ischemic changes but otherwise normal MRI of the brain. LP and CSF examination reassuring. (5) Anemia Is this a current diagnosis for this admission?: Yes Summary: Acute on chronic anemia; baseline hemoglobin of 8.1. Now s/p 1 unit of packed red blood cells. Hemoglobin appears to have stabilized at 10.0 No indications of active bleeding. Recommend continuing multivitamin with iron supplementation. (6) C. difficile colitis Is this a current diagnosis for this admission?: Yes Summary: The patient does have a history of C. difficile colitis. Her C. difficile PCR's are noted to be positive during this admission; however, it is known that the PCR can remain positive for several months to a year following an active infection. Nursing reports that she is having 1-2 soft stools daily; patient denies abdominal discomfort. Infectious disease was consulted; Dr. Garcia stated that the patient's clinical presentation did not support active C. difficile infection at this time. She was empirically placed on p.o. vancomycin while on IV Rocephin. Her p.o. vancomycin was continued for 3 days after IV antibiotics were discontinued. The patient remains afebrile, is tolerating a regular diet with minimal stooling , leukocytosis has resolved. (7) CHF (congestive heart failure) Is this a current diagnosis for this admission?: Yes Summary: Echocardiogram demonstrated LVEF of 65% with mild diastolic dysfunction. She appears euvolemic at this time; lung sounds positive for wheezing but without crackles, no pedal edema present. She is hemodynamically stable. The patient's hypertensive medications and diuretics were held due to hypotension related to septic shock. They have not been required throughout her admission. Recommend close monitoring for evidence of fluid volume overloadn (daily weights , pedal edema, rales) and resumption of antihypertensives and diuretics as necessary at that time. (8) COPD exacerbation Is this a current diagnosis for this admission?: Yes Summary: Improved; the patient is now maintaining oxygen saturations on her baseline oxygen requirement of 2 L/min. She does continue to require BiPAP nightly. Hospital management and outpatient recommendations as described above. (9) Diabetes Is this a current diagnosis for this admission?: Yes Summary: The patient's metformin was held and she was managed with subcutaneous insulin while inpatient. Her home medication regiment is resumed at discharge. (10) Encephalopathy Is this a current diagnosis for this admission?: Yes Summary: Resolved; acute metabolic encephalopathy secondary to infectious process and septic shock. Hospital management as described above. (11) Generalized weakness Is this a current diagnosis for this admission?: Yes Summary: The patient has debility at baseline; does use front wheel walker when at home but requires assistance for many transfers. Recently was admitted to SNF for short-term rehab. Now following prolonged ICU admission requiring intubation and ventilation. PT/OT evaluations have been ordered; recommending SNF at discharge. The patient is discharged to [facility] where she is an established resident for continued rehabilitation. (12) GERD (gastroesophageal reflux disease) Is this a current diagnosis for this admission?: Yes Summary: Daily PPI (13) History of lung cancer Is this a current diagnosis for this admission?: Yes (14) Hypocalcemia Is this a current diagnosis for this admission?: Yes Summary: Resolved. (15) Hypokalemia Is this a current diagnosis for this admission?: Yes Summary: Resolved. (16) Hypomagnesemia Is this a current diagnosis for this admission?: Yes Summary: Resolved. (17) Hyponatremia Is this a current diagnosis for this admission?: Yes Summary: Resolved. (18) Hypothyroid Is this a current diagnosis for this admission?: Yes Summary: The patient's home dose of levothyroxine is continued. (19) Pneumococcal bacteremia Is this a current diagnosis for this admission?: Yes Summary: Resolved. Blood culture (06/20/18) grew strep pneumonia in 1 set. Repeat blood cultures (06/21/2018) are negative at 5 days. Infectious disease was consulted; Dr. Garcia commented that the patient has received an adequate course of IV antibiotic therapy; recommended discontinuing antibiotics. Patient remains afebrile and leukocytosis has resolved. - Additional Information Resuscitation Status: Full Code Discharge Diet: Cardiac, Diabetic Discharge Activity: Activity As Tolerated, Balance Activity w/Rest, Slowly Increase Activity, Supervised Activity Prescriptions: Fluticasone Propionate [Flonase Nasal Dighton 50 Mcg/Dighton 16 gm] 2 spray NASL Q12 #1 spray.pump Guaifenesin [Mucinex Sr 600 mg Tablet.sa] 600 mg PO Q12 #28 tablet.sa Ipratropium [place] [Atrovent 0.02% Neb 0.5 mg/2.5 ml Ampul] 0.5 mg NEB RTQ8 # 120 vial.neb Levalbuterol HCl [Xopenex Neb 1.25 mg/3 ml Ampul] 1.25 mg NEB RTQ4HP PRN #60 vial.neb PRN Reason: For Wheezing Levalbuterol HCl [Xopenex Neb 1.25 mg/3 ml Ampul] 1.25 mg NEB RTQ8 #120 vial.neb Multivitamins W-Iron [Flintstones Chewable Multivit W/Fe Tab] 2 tab PO DAILY # 60 tab.chew Prednisone [Deltasone 20 mg Tablet] 20 mg PO ASDIR PRN #20 tablet PRN Reason: Home Medications: Albuterol Sulfate [Ventolin 0.083% Neb 2.5 mg/3 mL Ampul] 1 vial NEB RTQ6 Levalbuterol HCl [Xopenex Neb 1.25 mg/3 ml Ampul] 1.25 mg NEB RTQ4HP PRN Levothyroxine Sodium [Synthroid 0.112 mg Tablet] 112 mcg PO DAILY 06/21/18 Menthol/Camphor [Sarna Anti-Itch Lotion] 1 applic TP TID 06/21/18 Metformin HCl [Glucophage 500 mg Tablet] 500 mg PO BID 06/21/18 Olopatadine HCl [Patanol 0.1% Oph Soln 5 ml] 1 drop OU BID 06/21/18 Pantoprazole Sodium [Protonix] 40 mg PO DAILY 06/21/18 Tiotropium [place] [Spiriva Handihaler 5 Cap/Kit (18 Mcg/Cap)] 1 cap IH DAILY Fluticasone Propionate [Flonase Nasal Dighton 50 Mcg/Dighton 16 gm] 2 spray NASL Q12 #1 spray.pump 07/05/18 Guaifenesin [Mucinex Sr 600 mg Tablet.sa] 600 mg PO Q12 #28 tablet.sa 07/05/18 Ipratropium [place] [Atrovent 0.02% Neb 0.5 mg/2.5 ml Ampul] 0.5 mg NEB RTQ8 # 120 vial.neb 07/05/18 Levalbuterol HCl [Xopenex Neb 1.25 mg/3 ml Ampul] 1.25 mg NEB RTQ4HP PRN #60 vial.[facility] 07/05/18 Levalbuterol HCl [Xopenex Neb 1.25 mg/3 ml Ampul] 1.25 mg NEB RTQ8 #120 vial.[facility] 07/05/18 Multivitamins W-Iron [Flintstones Chewable Multivit W/Fe Tab] 2 tab PO DAILY # 60 tab.chew 07/05/18 Prednisone [Deltasone 20 mg Tablet] 20 mg PO ASDIR PRN #20 tablet 07/05/18 History of Present Illness Admission Date/PCP: 06/21/18 00:15 BAKARI VELARDE MD History of Present Illness: Per H&P by Dr. Contreras: TRENTON MCCOY is a 72 year old female who is a [facility] term [facility] with a chief complaint of altered mental status and fever. 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 Symptoms began 4 hours prior to presentation. In the emergency room she is unable to answer questions with moaning, hypotension, a temperature of 100.2 and a nonproductive cough. CT reveals right-sided infiltrate, CBC with leukocytosis. She has a right sided internal jugular central line placed receives 2 L of saline and empiric antibiotics then referred to the hospitalist for admission. Physical Exam Vital Signs: Temp Pulse Resp BP Pulse Ox 98.9 F 112 H 16 117/61 100 07/05/18 12:00 07/05/18 12:00 07/05/18 12:00 07/05/18 12:00 07/05/18 12:00 Intake & Output 07/04/18 07/05/18 07/06/18 06:59 06:59 06:59 Intake Total 582 576 Output Total 175 1350 50 Balance 407 -774 -50 Weight 78.8 kg General appearance: PRESENT: no acute distress, cooperative, disheveled, obese, well-developed, well-nourished Head exam: PRESENT: atraumatic, normocephalic Eye exam: PRESENT: conjunctiva pale, EOMI, PERRLA. ABSENT: scleral icterus Ear exam: PRESENT: normal external ear exam Mouth exam: PRESENT: moist, tongue midline Neck exam: ABSENT: carotid bruit, JVD, lymphadenopathy, thyromegaly Respiratory exam: PRESENT: decreased breath sounds, prolonged expiratory phas, rhonchi, symmetrical, unlabored, wheezes. ABSENT: rales Cardiovascular exam: PRESENT: RRR, +S1, +S2. ABSENT: diastolic murmur, rubs, systolic murmur Pulses: PRESENT: normal dorsalis pedis pul Vascular exam: PRESENT: normal capillary refill GI/Abdominal exam: PRESENT: normal bowel sounds, soft. ABSENT: distended, guarding, mass, organolmegaly, rebound, tenderness Rectal exam: PRESENT: deferred Extremities exam: PRESENT: full ROM. ABSENT: calf tenderness, clubbing, pedal edema Neurological exam: PRESENT: alert, awake, oriented to person, oriented to place , oriented to time, oriented to situation, CN II-XII grossly intact. ABSENT: motor sensory deficit Psychiatric exam: PRESENT: appropriate affect, normal mood. ABSENT: homicidal ideation, suicidal ideation Skin exam: PRESENT: dry, intact, warm. ABSENT: cyanosis, rash Results Laboratory Results: 07/05/18 06:10 07/05/18 06:10 07/05/18 07/05/18 06:10 06:10 WBC 8.1 RBC 3.20 L Hgb 9.5 L Hct 28.4 L MCV 89 MCH 29.6 MCHC 33.4 RDW 16.0 H Plt Count 76 L Sodium 143.7 Potassium 3.8 Chloride 109 H Carbon Dioxide 27 Anion Gap 8 BUN 23 H Creatinine 0.73 Est GFR ( Amer) > 60 Est GFR (Non-Af Amer) > 60 Glucose 177 H Calcium 8.2 L 06/26/18 10:10 NT-Pro-B Natriuret Pep 89441 H Impressions: Abdomen/Pelvis CT 06/20/18 22:27 IMPRESSION: New focal area of parenchymal consolidation within the posterior aspect of the right lower lung, image 33 which could be secondary to an acute infectious process/area of pneumonitis. Postobstructive atelectasis/pneumonitis is a consideration. Small right pleural fluid collection, decreased when compared with the prior exam. Partially visualized air within the soft tissues of the upper extremities could be secondary to recent instrumentation. Please correlate. No acute intra-abdominal abnormality. Chest CT 06/20/18 22:27 IMPRESSION: New focal area of parenchymal consolidation within the posterior aspect of the right lower lung, image 33 which could be secondary to an acute infectious process/area of pneumonitis. Postobstructive atelectasis/pneumonitis is a consideration. Small right pleural fluid collection, decreased when compared with the prior exam. Partially visualized air within the soft tissues of the upper extremities could be secondary to recent instrumentation. Please correlate. No acute intra-abdominal abnormality. Head CT 06/23/18 00:00 IMPRESSION: No acute intracranial findings. Head MRI 06/24/18 13:39 IMPRESSION: ATROPHY AND CHRONIC MICRO-VASCULAR ISCHEMIC CHANGES. OTHERWISE NORMAL MRI OF THE BRAIN WITHOUT INTRAVENOUS GADOLINIUM CONTRAST. EVIDENCE OF ACUTE STROKE: NO. Guidance Fluoroscopy 06/27/18 00:00 IMPRESSION: Lumbar puncture under fluoroscopy. No immediate complication. KUB X-Ray 06/27/18 00:00 IMPRESSION: Tip of the enteric tube likely in the proximal stomach with the sidehole near the GE junction. Mild gaseous distention of the colon copyright 2010 [employer]- All Rights Reserved Lumbar Puncture 06/27/18 00:00 IMPRESSION: Lumbar puncture under fluoroscopy. No immediate complication. Chest X-Ray 07/01/18 06:00 IMPRESSION: Little interval change copyright 2010 [employer]- All Rights Reserved Transfer Plan - Time Spent with Patient Time spent with patient: Less than 30 Minutes Qualifiers - * PATIENT BEING DISCHARGED WITH ANY OF THE FOLLOWING DIAGNOSIS: No Plan Discharge Plan: Discharge to [facility] with the patient is an established resident. Follow-up with primary care provider within 1 week. Follow-up with pulmonology within 2-4 weeks. Return to the emergency department as needed for concerning symptoms. Time Spent: Less than 30 Minutes
[2018-07-05 16:34] VITALS: BP 119/67
--- NOTE | 2018-07-08 15:25 | PDOC PROGRESS REPORT ---
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 reveals right- sided infiltrate, CBC with leukocytosis. She has a right sided internal jugular central line placed receives 2 L of saline and empiric antibiotics then referred to the hospitalist for admission. Patient was admitted and transferred to ICU for possible sepsis and pneumonia. Initially was placed on pressors and broad-spectrum IV antibiotics. 06/22/2018. No acute events overnight. Off of pressors for the last 24 hours. Patient is alert oriented and cooperative with physical examination complaining of diarrhea overnight and not being able to sleep all night because of anxiety. She denies any fever, chills, nausea, vomiting, constipation or any urinary symptoms. She is p.o. tolerant and cooperating with physical examination. 06/23/2018. Patient has been confused and agitated and restless since yesterday. Repeat chest x-ray and ABG did not show any acute changes since admission. Patient is alert however confused and keeps talking to herself. She still p.o. tolerant but would not eat much of her food. Patient is full code and I contacted her daughter who is her power of estate planning attorney and left a message however I did not receive a call back. 06/24/2018. No acute events overnight. Patient's mental status remains unchanged. Blood pressure has been maintained low normal, SPO2 is also within normal limits on supplemental oxygen. Urine output improving. Had a conversation with her daughter who has power of estate planning attorney who is stated that her plan is to transfer patient to [place] once clinically stable. Meanwhile she will discussed CODE STATUS with her family. 06/25/2018. Patient has been sleepy and lethargic since last night an ABG was done which showed severe respiratory acidosis with hypercapnia. Patient patient was intubated. Reason For Visit: SEPSIS DIABETES, COPD EXACERBATION PNEUMONIA Physical Exam Vital Signs: Temp Pulse Resp BP Pulse Ox 97.3 F 99 20 98/58 L 100 06/25/18 17:07 06/25/18 14:18 06/25/18 17:07 06/25/18 17:07 06/25/18 17:07 Intake & Output 06/24/18 06/25/18 06/26/18 06:59 06:59 06:59 Intake Total 1750 3385.625 3041.250 Output Total 325 586 435 Balance 1425 2799.625 2606.250 Weight 78.5 kg 79.1 kg General appearance: PRESENT: other - Beta Head exam: PRESENT: atraumatic, normocephalic Respiratory exam: ABSENT: rales, rhonchi, wheezes Cardiovascular exam: PRESENT: RRR. ABSENT: diastolic murmur, rubs, systolic murmur GI/Abdominal exam: PRESENT: normal bowel sounds, soft. ABSENT: distended, guarding, mass, organolmegaly, rebound, tenderness Neurological exam: PRESENT: other - Intubated and sedated Results Laboratory Results: 06/25/18 16:00 06/25/18 08:22 06/25/18 06/25/18 06/25/18 08:22 08:22 10:57 WBC 6.0 RBC 2.40 L Hgb 7.5 L Hct 21.9 L MCV 91 MCH 31.3 MCHC 34.4 RDW 14.4 H Plt Count 166 Seg Neutrophils % Not Reportable Lymphocytes % Not Reportable Monocytes % Not Reportable Eosinophils % Not Reportable Basophils % Not Reportable Absolute Neutrophils Not Reportable Absolute Lymphocytes Not Reportable Absolute Monocytes Not Reportable Absolute Eosinophils Not Reportable Absolute Basophils Not Reportable Carbonic Acid HCO3/H2CO3 Ratio ABG pH ABG pCO2 ABG pO2 ABG HCO3 ABG O2 Saturation ABG Base Excess FiO2 Sodium 127.6 L Potassium 3.9 Chloride 91 L Carbon Dioxide 24 Anion Gap 13 BUN 28 H Creatinine 1.60 H Est GFR ( Amer) 38 L Est GFR (Non-Af Amer) 32 L Glucose 145 H Calcium 7.4 L Total Bilirubin 0.1 L AST 20 ALT 17 Alkaline Phosphatase 46 Total Protein 5.1 L Albumin 2.6 L Blood Type O POSITIVE Antibody Screen NEGATIVE 06/25/18 06/25/18 14:40 16:00 WBC 5.6 RBC 2.70 L Hgb 8.1 L Hct 24.0 L MCV 89 MCH 30.2 MCHC 33.9 RDW 16.1 H Plt Count 146 L Seg Neutrophils % Lymphocytes % Monocytes % Eosinophils % Basophils % Absolute Neutrophils Absolute Lymphocytes Absolute Monocytes Absolute Eosinophils Absolute Basophils Carbonic Acid 2.30 H HCO3/H2CO3 Ratio 9:1 ABG pH 7.09 L* ABG pCO2 76.4 H* ABG pO2 93.9 ABG HCO3 22.8 ABG O2 Saturation 93.7 L ABG Base Excess -7.5 FiO2 2L Sodium Potassium Chloride Carbon Dioxide Anion Gap BUN Creatinine Est GFR ( Amer) Est GFR (Non-Af Amer) Glucose Calcium Total Bilirubin AST ALT Alkaline Phosphatase Total Protein Albumin Blood Type Antibody Screen 06/21/18 14:00 Sputum Gram Stain - Final 06/21/18 14:00 Sputum Sputum Culture - Final Streptococcus Pneumoniae Mrsa (Meth Resis Staph Aureus) Reduced Normal Jayshree Impressions: Abdomen/Pelvis CT 06/20/18 22:27 IMPRESSION: New focal area of parenchymal consolidation within the posterior aspect of the right lower lung, image 33 which could be secondary to an acute infectious process/area of pneumonitis. Postobstructive atelectasis/pneumonitis is a consideration. Small right pleural fluid collection, decreased when compared with the prior exam. Partially visualized air within the soft tissues of the upper extremities could be secondary to recent instrumentation. Please correlate. No acute intra-abdominal abnormality. Chest CT 06/20/18 22:27 IMPRESSION: New focal area of parenchymal consolidation within the posterior aspect of the right lower lung, image 33 which could be secondary to an acute infectious process/area of pneumonitis. Postobstructive atelectasis/pneumonitis is a consideration. Small right pleural fluid collection, decreased when compared with the prior exam. Partially visualized air within the soft tissues of the upper extremities could be secondary to recent instrumentation. Please correlate. No acute intra-abdominal abnormality. Head CT 06/23/18 00:00 IMPRESSION: No acute intracranial findings. Head MRI 06/24/18 13:39 IMPRESSION: ATROPHY AND CHRONIC MICRO-VASCULAR ISCHEMIC CHANGES. OTHERWISE NORMAL MRI OF THE BRAIN WITHOUT INTRAVENOUS GADOLINIUM CONTRAST. EVIDENCE OF ACUTE STROKE: NO. Chest X-Ray 06/25/18 00:00 IMPRESSION: Stable scarring and volume loss in the right perihilar region. Endotracheal and nasogastric tubes, right jugular central line in good positioning Assessment & Plan - Diagnosis (1) Acute respiratory failure with hypoxia and hypercapnia Is this a current diagnosis for this admission?: Yes Plan: Due to underlying infectious process. Intubated. Repeat ABG. ABG chest x-ray tomorrow. Pulmonology consult. (2) Meningitis Is this a current diagnosis for this admission?: Yes Plan: Patient clinically improving. Prior to being intubated patient was hallucinating and being agitated throughout the week. MRI brain negative. Pending lumbar puncture. On my conversation over the phone with Dr. Garcia ID specialist she can be started on empiric treatment for presumptive meningitis de-escalate treatment recent lumbar puncture results. Per her recommendation can start on ampicillin and Rocephin. No true allergies to beta lactams based on chart review. (3) Hyponatremia Is this a current diagnosis for this admission?: Yes Plan: Likely the fact the patient has been receiving D5W and D10W for last several days due to persistent hypoglycemia versus SIADH caused by underlying pneumonia/ meningitis. Start on normal saline. BMP every 4 hours. Goal of sodium to correct around 8- 10 mEq the next 24 hours. (4) Pneumococcal bacteremia Is this a current diagnosis for this admission?: Yes Plan: Blood culture from 06/20/2018 positive for strep pneumonia pansensitive. Due to unchanged mental status and raises a question of meningitis Patient has been on vancomycin, levofloxacin since admission. Cefepime was added on 06/22/2018. Zosyn could not be started due to beta-lactam allergy. DC vancomycin. Switch to Rocephin and ampicillin for empiric treatment for meningitis. Per ID recommendation. (5) Septic shock Is this a current diagnosis for this admission?: Yes Plan: Due to underlying bacteremia and pneumonia. Blood culture from 06/20/2018 is positive forr strep pneumonia. Sputum culture from 06/21/2018 positive for an MRSA. Patient has been off of pressors. Patient could not be aggressively volume resuscitated due to underlying CHF and volume overload. Continue IV fluids. Urine output increasing. (6) C. difficile colitis Is this a current diagnosis for this admission?: Yes Plan: Patient has not had any diarrhea since admission possibly carrier. C. difficile toxin by PCR positive. Continue oral vancomycin. Contact precaution. Volume resuscitation and auscultation guided by volume status. (7) Acute on chronic diastolic (congestive) heart failure Is this a current diagnosis for this admission?: No Plan: Monitor her volume status. Resume diuretics guided by her volume status. (8) COPD exacerbation Is this a current diagnosis for this admission?: Yes Plan: Likely exacerbated by underlying infectious process. IV steroids, treat underlying pneumonia, nebs, BiPAP, long-acting anticholinergics. (9) Encephalopathy Is this a current diagnosis for this admission?: Yes Plan: Metabolic versus infectious. Start empiric treatment for bacterial meningitis. MRI brain negative (10) GERD (gastroesophageal reflux disease) Qualifiers: Esophagitis presence: esophagitis presence not specified Qualified Code(s) : K21.9 - Gastro-esophageal reflux disease without esophagitis Is this a current diagnosis for this admission?: Yes Plan: Continue PPIs. (11) Anemia Qualifiers: Anemia type: unspecified type Qualified Code(s): D64.9 - Anemia, unspecified Is this a current diagnosis for this admission?: Yes Plan: Received 1 PRBC today. Monitor H&H. Supportive transfusions. (12) Hypothyroid Is this a current diagnosis for this admission?: Yes Plan: Start home meds.
== END 2018-07-05 17:56 | DRG 871 ==
LOC: ER 20:00 → EH 06-21 00:15 → UNDOADMIN 06-21 00:15 → ICU 06-21 01:40 → EH 06-21 01:40 → 4W 07-04 01:06
PROVIDERS: ADMIT Internal Medicine; ATTEND Internal Medicine
PROC: 02HV33Z Insertion of Infusion Device into Superior Vena Cava, Percutaneous Approach (ICD-10-PCS; principal; 2018-06-20)
PROC: 0BH17EZ Insertion of Endotracheal Airway into Trachea, Via Natural or Artificial Opening (ICD-10-PCS; 2018-06-25)
PROC: 5A1945Z Respiratory Ventilation, 24-96 Consecutive Hours (ICD-10-PCS; 2018-06-25)
PROC: 30233N1 Transfusion of Nonautologous Red Blood Cells into Peripheral Vein, Percutaneous Approach (ICD-10-PCS; 2018-06-25)
PROC: 009U3ZX Drainage of Spinal Canal, Percutaneous Approach, Diagnostic (ICD-10-PCS; 2018-06-27)
PROC: B01BZZZ Fluoroscopy of Spinal Cord (ICD-10-PCS; 2018-06-27)
PROC: 30233N1 Transfusion of Nonautologous Red Blood Cells into Peripheral Vein, Percutaneous Approach (ICD-10-PCS; 2018-06-29)
DX: A40.3 Sepsis due to Streptococcus pneumoniae (principal); J18.9 Pneumonia, unspecified organism; J96.22 Acute and chronic respiratory failure with hypercapnia; J96.21 Acute and chronic respiratory failure with hypoxia; R65.21 Severe sepsis with septic shock; G93.41 Metabolic encephalopathy; I50.33 Acute on chronic diastolic (congestive) heart failure; N17.0 Acute kidney failure with tubular necrosis; A04.72 Enterocolitis due to Clostridium difficile, not specified as recurrent; C34.90 Malignant neoplasm of unspecified part of unspecified bronchus or lung; C79.31 Secondary malignant neoplasm of brain; J44.1 Chronic obstructive pulmonary disease with (acute) exacerbation; E87.1 Hypo-osmolality and hyponatremia; I11.0 Hypertensive heart disease with heart failure; D64.9 Anemia, unspecified; E83.42 Hypomagnesemia; E87.6 Hypokalemia; E11.65 Type 2 diabetes mellitus with hyperglycemia; I25.10 Atherosclerotic heart disease of native coronary artery without angina pectoris; E03.9 Hypothyroidism, unspecified; K21.9 Gastro-esophageal reflux disease without esophagitis; G47.33 Obstructive sleep apnea (adult) (pediatric); I25.2 Old myocardial infarction; Z99.81 Dependence on supplemental oxygen; Z79.84 Long term (current) use of oral hypoglycemic drugs; Z79.891 Long term (current) use of opiate analgesic; Z79.51 Long term (current) use of inhaled steroids; Z79.52 Long term (current) use of systemic steroids; Z79.899 Other long term (current) drug therapy; E83.51 Hypocalcemia
CPT/HCPCS: 31500; 36415; 36430; 36600; 51701; 62270; 70450; 70551; 71045; 71260; 74018; 74177; 77003; 80048; 80053; 80202; 81001; 82040; 82140; 82330; 82565; 82803; 82945; 82947; 82962; 83605; 83735; 83880; 83930; 83935; 84100; 84157; 84300; 84478; 84484; 85025; 85027; 85610; 86850; 86900; 86901; 86920; 87040; 87070; 87077; 87086; 87186; 87205; 87493; 87804; 89050; 93005; 93010; 93306; 94002; 94003; 94660; 94667; 94668; 94799; 95819; 96361; 96365; 96366; 99291; C1751; G8978-GP; G8979-GP; G8987-GO; G8988-GO; J0290; J0330; J0692; J0696; J1100; J1630; J1642; J1644; J1815; J1885; J1940; J1956; J2060; J2250; J2704; J2920; J2930; J2997; J3010; J3370; J3475; J3480; J3490; J7030; J7060; J7620; P9016; P9047

== ENCOUNTER 2018-07-07 14:57 | Inpatient (IN) | payer MEDICARE, OTHER ==
[2018-07-07] MEDS ORDERED: MAGNESIUM SULFATE/D5W 1 GM/100 ML RTUPB IV ONE ×2 (15:40→15:41)
[2018-07-07] MEDS ORDERED: IPRATROPIUM/ALBUTEROL 0.5-2.5 MG/3 ML AMPUL NEB ONE (15:41)
--- NOTE | 2018-07-07 15:44 | ER Document Report ---
ED General - General Chief Complaint: Other Stated Complaint: WEAKNESS Time Seen by Provider: 07/07/18 15:34 TRAVEL OUTSIDE OF THE [place] 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 Patient states that the pain started this morning, but has since resolved. Patient states that she does continue to have wheezing and a cough over the last several days. Patient states that she has associated generalized weakness as well. She otherwise has been eating and drinking without difficulty. She is urinating normally and having normal bowel movements. She has no other concerns or complaints at this time. Patient states that she does have a cardiac history with stents placed in the past, but has had symptoms like this previously with COPD exacerbations/URI's. Denies any headache, fever, neck pain , changes in vision/speech/mentation/hearing, URI, sore throat, palpitations, syncope, abdominal pain, nausea/vomiting/diarrhea, urinary retention, dysuria, hematuria, or rash. - Related Data Allergies/Adverse Reactions: azithromycin Allergy (Verified 06/20/18 20:48) amoxicillin [Amoxicillin] Adverse Reaction (Verified 06/20/18 20:48) visual hallucinations erythromycin base [Erythromycin Base] Adverse Reaction (Verified 06/20/18 20:48) visual hallucinations Potassium Clavulanate * [From Augmentin] Adverse Reaction (Verified 06/20/18 20: 48) visual hallucinations Past Medical History - Social History Smoking Status: Unknown if Ever Smoked Family History: COPD, Malignancy - Lung cancer - Past Medical History Cardiac Medical History: Reports: Hx Congestive Heart Failure, Hx Coronary Artery Disease, Hx Heart Attack, Hx Hypertension Denies: Hx DVT, Hx Hypercholesterolemia, Hx Pulmonary Embolism Pulmonary Medical History: Reports: Hx Asthma, Hx Bronchitis, Hx COPD - 2 L nasal home oxygen, Hx Pneumonia, Hx Respiratory Failure - Chronic respiratory failure Denies: Hx Sleep Apnea, Hx Tuberculosis Neurological Medical History: Denies: Hx Seizures Endocrine Medical History: Reports: Hx Diabetes Mellitus Type 2, Hx Hypothyroidism. 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 Denies: Hx Cirrhosis, Hx Hepatitis, Hx Ulcer Musculoskeletal Medical History: Reports Hx Arthritis, Denies Hx Multiple Sclerosis, Reports Hx Musculoskeletal Deformity, Reports Hx Musculoskeletal Trauma Psychiatric Medical History: Reports: Hx Dementia, Hx Depression Denies: Hx Bipolar Disorder, Hx Schizophrenia Infectious Medical History: Reports: Hx C-Diff. Denies: Hx Hepatitis Past Surgical History: Reports: Hx Cholecystectomy, Hx Orthopedic Surgery - Foot surgery, Other - cataract bilateral - Immunizations Hx Diphtheria, Pertussis, Tetanus Vaccination: Yes Hx Pneumococcal Vaccination: 08/30/12 Review of Systems - Review of Systems -: Yes All other systems reviewed and negative Physical Exam - Vital signs Vitals: Temp Pulse Resp BP Pulse Ox 98.8 F 107 H 18 124/60 96 07/07/18 15:00 07/07/18 15:00 07/07/18 15:00 07/07/18 15:00 07/07/18 15:00 - Notes Notes: PHYSICAL EXAMINATION: GENERAL: Well-appearing, well-nourished and in no acute distress. A&Ox4. Answers questions appropriately. HEAD: Atraumatic, normocephalic. EYES: Pupils equal round and reactive to light, extraocular movements intact, sclera anicteric, conjunctiva are normal. ENT: Nares patent and without discharge. oropharynx clear without exudates. No tonsilar hypertrophy or erythema. Moist mucous membranes. NECK: Normal range of motion, supple without lymphadenopathy LUNGS: wheezing b/l, + diminished. HEART: Regular rate and rhythm without murmurs, rubs, gallops. ABDOMEN: Soft, nontender, nondistended abdomen. No guarding, no rebound. No masses appreciated. Normal bowel sounds present. No CVA tenderness bilaterally. Musculoskeletal: FROM to passive/active. Strength 5+/5. Sabine neg. No asymmetry to LE's. Extremities: trace b/l LE's. Peripheral pulses 2+. Capillary refill less than 3 seconds. NEUROLOGICAL: Normal speech, normal gait. PSYCH: Normal mood, normal affect. SKIN: Warm, Dry, normal turgor, no rashes or lesions noted. Course - Re-evaluation Re-evalutation: 07/07/18 19:10 Patient has received DuoNeb and magnesium. Patient states that she is feeling better and has not had any recurrence of chest pain since this morning. I did review with Dr. Fernandez who is in agreement with dispo/plan: Patient is currently an afebrile, well-hydrated 72-year-old female who presents to the ED with b/l significant pleural effusions R>L with Renal mass suspicious for renal cell carcinoma. Pt is non-toxic appearing at this time. CBC, CMP, EKG /cardiac enzyme, UA, chest x-ray are all unremarkable for any acute pathology otherwise. Patient does not have any chest pain. She has a heart score of 4. We are concerned that the pleural effusions could be secondary to the renal cell carcinoma. We will plan for admission. 07/07/18 19:19 Dr. Contreras has accepted pt for admit to [facility]. - Vital Signs Vital signs: Temp Pulse Resp BP Pulse Ox 98.2 F 107 H 18 147/72 H 100 07/07/18 18:59 07/07/18 15:00 07/07/18 18:01 07/07/18 18:01 07/07/18 18:00 - Laboratory Result Diagrams: 07/07/18 16:45 07/07/18 16:45 Laboratory results interpreted by me: 07/07/18 07/07/18 07/07/18 16:45 16:45 16:45 RBC 3.45 L Hgb 10.3 L Hct 30.7 L RDW 15.5 H Plt Count 102 L Seg Neutrophils % 84.8 H Lymphocytes % 6.4 L VBG HCO3 Carbon Dioxide 31 H NT-Pro-B Natriuret Pep 1850 H Total Protein 4.8 L Albumin 2.7 L 07/07/18 16:45 RBC Hgb Hct RDW Plt Count Seg Neutrophils % Lymphocytes % VBG HCO3 33.4 H Carbon Dioxide NT-Pro-B Natriuret Pep Total Protein Albumin Discharge - Discharge Clinical Impression: Nonspecific chest pain, Pleural effusion, bilateral Renal cell carcinoma Qualifiers: Laterality: right Qualified Code(s): C64.1 - Malignant neoplasm of right kidney , except renal pelvis Condition: Stable Disposition: ADMITTED INPATIENT Admitting Provider: Hospitalist - Dr. Contreras Unit Admitted: [facility] Referrals: BAKARI VELARDE MD [Primary Care Provider] - Follow up as needed
--- NOTE | 2018-07-07 16:20 | RADIOLOGY REPORT (SQ) ---
EXAM DESCRIPTION: CHEST SINGLE VIEW COMPLETED DATE/TIME: 07/07/2018 3:57 pm REASON FOR STUDY: cough, cp COMPARISON: Chest radiograph, 07/01/2018 EXAM PARAMETERS: NUMBER OF VIEWS: One view. TECHNIQUE: Single frontal radiographic view of the chest acquired. RADIATION DOSE: NA LIMITATIONS: None. FINDINGS: LUNGS AND PLEURA: Near total interval resolution of previously seen bilateral pleural effu sions. No new airspace opacity. Unchanged masslike opacity of the right hilum. MEDIASTINUM AND HILAR STRUCTURES: No masses. Contour normal. HEART AND VASCULAR STRUCTURES: Heart normal in size. Normal vasculature. BONES: No acute findings. HARDWARE: None in the chest. OTHER: No other significant finding. IMPRESSION: Near total interval resolution of previously seen bilateral pleural effusions. No new a irspace opacity. Unchanged masslike opacity of the right hilum. TECHNICAL DOCUMENTATION: JOB ID: [id number] [employer]- All Rights Reserved Reading location - IP/workstation name: [email or web address]
[2018-07-07 17:04] LABS: VENOUS BLOOD HCO3 33.4 mmol/L (20-32); VENOUS BLOOD PCO2 62.4 mmHg (35-63); VENOUS BLOOD PH 7.35 (7.30-7.42)
[2018-07-07 17:16] LABS: ABSOLUTE EOSINOPHILS # (AUTO) 0.1 10^3/uL (0.0-0.6); ABSOLUTE LYMPHOCYTES (AUTO) 0.5 10^3/uL (0.5-4.7); ABSOLUTE MONOCYTES (AUTO) 0.5 10^3/uL (0.1-1.4); ABSOLUTE NEUT (AUTO) 6.4 10^3/uL (1.7-8.2); BASOPHILS % (AUTO) 0.6 % (0-2); EOSINOPHILS % (AUTO) 1.9 % (0-6); HEMATOCRIT 30.7 % (36.0-47.0); HEMOGLOBIN 10.3 g/dL (12.0-15.5); LYMPHOCYTES % (AUTO) 6.4 % (13-45); MEAN CORPUSCULAR HEMOGLOBIN 29.9 pg (27.0-33.4); MEAN CORPUSCULAR HGB CONC 33.6 g/dL (32.0-36.0); MEAN CORPUSCULAR VOLUME 89 fl (80-97); MONOCYTES % (AUTO) 6.3 % (3-13); PLATELET COUNT 102 10^3/uL (150-450); RED BLOOD COUNT 3.45 10^6/uL (3.72-5.28); RED CELL DISTRIBUTION WIDTH 15.5 % (11.5-14.0); SEGMENTED NEUTROPHILS % (AUTO) 84.8 % (42-78); TOTAL CELLS COUNTED % (AUTO) 100 %; WHITE BLOOD COUNT 7.6 10^3/uL (4.0-10.5)
[2018-07-07 17:18] LABS: ALANINE AMINOTRANSFERASE 23 U/L (9-52); ALBUMIN 2.7 g/dL (3.5-5.0); ALKALINE PHOSPHATASE 65 U/L (38-126); ANION GAP 8 (5-19); ASPARTATE AMINO TRANSFERASE 16 U/L (14-36); BILIRUBIN,DIRECT 0.2 mg/dL (0.0-0.4); BILIRUBIN,TOTAL 0.4 mg/dL (0.2-1.3); BLOOD UREA NITROGEN 14 mg/dL (7-20); CALCIUM 8.6 mg/dL (8.4-10.2); CARBON DIOXIDE 31 mmol/L (22-30); CHLORIDE 106 mmol/L (98-107); GLUCOSE 82 mg/dL (75-110); POTASSIUM 3.6 mmol/L (3.6-5.0); SODIUM 144.8 mmol/L (137-145); TOTAL PROTEIN 4.8 g/dL (6.3-8.2)
[2018-07-07 17:36] LABS: TROPONIN I 0.035 ng/mL
[2018-07-07 17:52] LABS: APPEARANCE,URINE CLOUDY; BILIRUBIN,URINE NEGATIVE (NEGATIVE); COLOR,URINE YELLOW; GLUCOSE, URINE NEGATIVE (NEGATIVE); KETONES,URINE NEGATIVE (NEGATIVE); LEUKOCYTE ESTERASE,URINE NEGATIVE (NEGATIVE); NITRITE,URINE NEGATIVE (NEGATIVE); PROTEIN,URINE NEGATIVE (NEGATIVE); URINE SPECIFIC GRAVITY 1.016; UROBILINOGEN,URINE NEGATIVE mg/dL (<2.0)
--- NOTE | 2018-07-07 18:44 | RADIOLOGY REPORT (SQ) ---
EXAM DESCRIPTION: CTA CHEST COMPLETED DATE/TIME: 07/07/2018 6:26 pm REASON FOR STUDY: sob COMPARISON: 06/20/2018, multiple chest x-rays, TECHNIQUE: CT scan of the chest performed using helical scanning technique with dynamic intravenous contrast injection. Images reviewed with lung, soft tissue and bone windows. Reconstructed coronal and sagittal MPR images reviewed. Additional 3 dimensional post-processing performed to develop Maximal Intensity Projection images (OK P). All images stored on PACS. All CT scanners at this facility use dose modulation, iterative reconstruction, and/or weight based d osing when appropriate to reduce radiation dose to as low as reasonably achievable (ALARA). [facility]: Dose Right [facility]: CareDose [facility]: Dose Right [facility]: Teradose 4D [facility]: [employer] CONTRAST TYPE AND DOSE: Not recorded not recorded Contrast bolus optimized for the pulmonary arteries. Not diagnostic for the aorta. RENAL FUNCTION: GFR > 60. RADIATION DOSE: CT Rad equipment meets quality standard of care and radiation dose reduction techniq ues were employed. CTDIvol: 24.2 - 24.8 mGy. DLP: 927 mGy-cm. . LIMITATIONS: None. FINDINGS: LUNGS AND PLEURA: Moderate to large bilateral pleural effusions right greater than left. No pneumothorax. Compressive atelectasis of the lung bases. AORTA AND GREAT VESSELS: No aneurysm. Contrast bolus not optimized for the aorta. HEART: Small pericardial effusion. No significant coronary artery calcifications. PULMONARY ARTERIES: No emboli visualized in the main pulmonary arteries or the segmental branches. HILAR AND MEDIASTINAL STRUCTURES: A definitive discrete mass is not seen in the right hilum in the br onchial tree appears patent. Considerable compressive atelectasis of the lung bases. HARDWARE: None in the chest. UPPER ABDOMEN: 2 cm solid mass arising from the right kidney. THYROID AND OTHER SOFT TISSUES: No masses. No adenopathy. BONES: No acute or significant finding. 3D MIPS: Confirm above findings. OTHER: No other significant finding. IMPRESSION: No pulmonary emboli. Moderate to large bilateral pleural effusions right greater than left. On the right side extension t o the level of the hilum with there is dense consolidation and atelectasis but no definitive mass les ion. 2 cm solid mass arising from the right kidney. Suspicious for renal cell carcinoma. COMMENT: Consider bronchoscopy, as there has been concern for right hilar mass lesion. Right renal ultrasound. Quality ID # [id number]: Final reports with documentation of one or more dose reduction techniques (e.g., Au tomated exposure control, adjustment of the mA and/or kV according to patient size, use of iterative reconstruction technique) TECHNICAL DOCUMENTATION: JOB ID: [id number] [employer]- All Rights Reserved Reading location - IP/workstation name: [email or web address]
[2018-07-07] MEDS ORDERED: LEVALBUTEROL HCL NEB 1.25 MG/3 ML AMPUL NEB PRN (19:21)
[2018-07-07] MEDS ORDERED: GLUCAGON,HUMAN RECOMB 1 MG INJ IM PRN (19:25)
[2018-07-07] MEDS ORDERED: DEXTROSE 40% GEL 15 GM TUBE PO PRN ×2 (19:25)
[2018-07-07] MEDS ORDERED: DEXTROSE 50%-WATER 25 GM/50 ML DISP.SYRIN IV PRN ×2 (19:25)
[2018-07-07] MEDS ORDERED: MAG HYDROX/AL HYDROX/SIMETH SUSP 30 ML UDCUP PO PRN (19:25)
[2018-07-07] MEDS ORDERED: FUROSEMIDE INJ/PF 40 MG/4 ML SDV IV ONE (19:29)
[2018-07-07] MEDS: HEPARIN SOD (PORCINE) 5,000 UNIT/ML 1 ML SYRINGE SUBCUT SCH (22:00)
[2018-07-07] MEDS: FLUTICASONE NASAL SPRAY 50 MCG/SPRY 120 SPRAY/16 GM NASL SCH (22:00)
[2018-07-08] MEDS: LEVALBUTEROL HCL NEB 1.25 MG/3 ML AMPUL NEB SCH ×3 (00:22→16:19)
[2018-07-08] MEDS: IPRATROPIUM BROMIDE 0.02% NEB 0.5 MG/2.5 ML AMPUL NEB SCH ×3 (00:22→16:19)
[2018-07-08] MEDS ORDERED: LORAZEPAM INJ 2 MG/1 ML VIAL IV ONE ×2 (03:48→07:00)
[2018-07-08 04:36] LABS: ABSOLUTE EOSINOPHILS # (AUTO) 0.1 10^3/uL (0.0-0.6); ABSOLUTE LYMPHOCYTES (AUTO) 0.6 10^3/uL (0.5-4.7); ABSOLUTE MONOCYTES (AUTO) 0.4 10^3/uL (0.1-1.4); ABSOLUTE NEUT (AUTO) 4.9 10^3/uL (1.7-8.2); BASOPHILS % (AUTO) 0.2 % (0-2); HEMATOCRIT 28.7 % (36.0-47.0); HEMOGLOBIN 9.7 g/dL (12.0-15.5); LYMPHOCYTES % (AUTO) 9.4 % (13-45); MEAN CORPUSCULAR HEMOGLOBIN 29.8 pg (27.0-33.4); MEAN CORPUSCULAR HGB CONC 33.9 g/dL (32.0-36.0); MEAN CORPUSCULAR VOLUME 88 fl (80-97); RED BLOOD COUNT 3.26 10^6/uL (3.72-5.28); RED CELL DISTRIBUTION WIDTH 15.5 % (11.5-14.0); SEGMENTED NEUTROPHILS % (AUTO) 81.4 % (42-78); TOTAL CELLS COUNTED % (AUTO) 100 %
[2018-07-08 04:50] LABS: PLATELET COUNT 83 10^3/uL (150-450)
[2018-07-08 05:08] LABS: ANION GAP 6 (5-19); BLOOD UREA NITROGEN 13 mg/dL (7-20); CALCIUM 8.4 mg/dL (8.4-10.2); CARBON DIOXIDE 33 mmol/L (22-30); CHLORIDE 104 mmol/L (98-107); GLUCOSE 77 mg/dL (75-110); POTASSIUM 3.2 mmol/L (3.6-5.0); SODIUM 143.4 mmol/L (137-145)
[2018-07-08] MEDS: HEPARIN SOD (PORCINE) 5,000 UNIT/ML 1 ML SYRINGE SUBCUT SCH (05:50)
--- NOTE | 2018-07-08 06:51 | PDOC H&P ---
History of Present Illness Admission Date/PCP: 07/07/18 19:32 BAKARI VELARDE MD Patient complains of: Shortness of breath History of Present Illness: TRENTON MCCOY is a 72 year old female long term resident with a remote past medical history lung cancer but current history of diabetes, hypertension, obstructive sleep apnea, oxygen and prednisone dependent COPD, recurrent ESBL E. coli urine, morbid obesity, dementia and debility. She is referred to the emergency room for shortness of breath and found to have anemia, thrombocytopenia, 2 cm right-sided renal mass and large bilateral pleural effusions. She started on oxygen and referred to the hospitalist for admission. She is found to be delirious and unable to provide history of the present illness. Past Medical History Cardiac Medical History: Reports: Congestive Heart Failure, Coronary Artery Disease, Myocardial Infarction, Hypertension Denies: DVT, Hyperlipidema, Pulmonary Embolism Pulmonary Medical History: Reports: Asthma, Bronchitis, Chronic Obstructive Pulmonary Disease (COPD) - 2 L nasal home oxygen, Pneumonia, Respiratory Failure - Chronic respiratory failure Denies: Sleep Apnea, Tuberculosis Neurological Medical History: Denies: Seizures Endocrine Medical History: Reports: Diabetes Mellitus Type 2, Hypothyroidism Denies: Diabetes Mellitus Type 1, Hyperthyroidism Renal/ Medical History: Denies: End Stage Renal Disease Malignancy Medical History: Reports: Brain Cancer - Lung cancer with brain metastases, 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 GI Medical History: Reports: Gastroesophageal Reflux Disease Denies: Cirrhosis, Hepatitis Musculoskeltal Medical History: Reports: Arthritis Psychiatric Medical History: Reports: Dementia, Depression Denies: Bipolar Disorder Hematology: Reports: Anemia, Bleeding Tendencies Infectious Medical History: Reports: Clostridium Difficile Past Surgical History Past Surgical History: Reports: Cholecystectomy, Orthopedic Surgery - Foot surgery, Other - cataract bilateral Social History Information Source: Patient, Emergency Med Personnel, [facility] Records Lives with: [facility] Smoking Status: Unknown if Ever Smoked Frequency of Alcohol Use: None Hx Recreational Drug Use: No Drugs: None Hx Prescription Drug Abuse: No - Advance Directive Resuscitation Status: Full Code Family History Family History: COPD, Malignancy - Lung cancer Parental Family History Reviewed: Yes Children Family History Reviewed: Yes Sibling(s) Family History Reviewed.: Yes Medication/Allergy Home Medications: Albuterol Sulfate [Ventolin 0.083% Neb 2.5 mg/3 mL Ampul] 1 vial NEB RTQ6 Levalbuterol HCl [Xopenex Neb 1.25 mg/3 ml Ampul] 1.25 mg NEB RTQ4HP PRN Levothyroxine Sodium [Synthroid 0.112 mg Tablet] 112 mcg PO DAILY 06/21/18 Menthol/Camphor [Sarna Anti-Itch Lotion] 1 applic TP TID 06/21/18 Metformin HCl [Glucophage 500 mg Tablet] 500 mg PO BID 06/21/18 Olopatadine HCl [Patanol 0.1% Oph Soln 5 ml] 1 drop OU BID 06/21/18 Pantoprazole Sodium [Protonix] 40 mg PO DAILY 06/21/18 Tiotropium [place] [Spiriva Handihaler 5 Cap/Kit (18 Mcg/Cap)] 1 cap IH DAILY Fluticasone Propionate [Flonase Nasal [place] 50 Mcg/[place] 16 gm] 2 spray NASL Q12 #1 spray.pump 07/05/18 Guaifenesin [Mucinex Sr 600 mg Tablet.sa] 600 mg PO Q12 #28 tablet.sa 07/05/18 Ipratropium [place] [Atrovent 0.02% Neb 0.5 mg/2.5 ml Ampul] 0.5 mg NEB RTQ8 # 120 vial.neb 07/05/18 Levalbuterol HCl [Xopenex Neb 1.25 mg/3 ml Ampul] 1.25 mg NEB RTQ4HP PRN #60 vial.neb 07/05/18 Levalbuterol HCl [Xopenex Neb 1.25 mg/3 ml Ampul] 1.25 mg NEB RTQ8 #120 vial.neb 07/05/18 Multivitamins W-Iron [Flintstones Chewable Multivit W/Fe Tab] 2 tab PO DAILY # 60 tab.chew 07/05/18 Prednisone [Deltasone 20 mg Tablet] 20 mg PO ASDIR PRN #20 tablet 07/05/18 Allergies/Adverse Reactions: azithromycin Allergy (Verified 06/20/18 20:48) amoxicillin [Amoxicillin] Adverse Reaction (Verified 06/20/18 20:48) visual hallucinations erythromycin base [Erythromycin Base] Adverse Reaction (Verified 06/20/18 20:48) visual hallucinations Potassium Clavulanate * [From Augmentin] Adverse Reaction (Verified 06/20/18 20: 48) visual hallucinations Review of Systems ROS unobtainable: Due to mental status Constitutional: ABSENT: chills, fever(s), headache(s), weight gain, weight loss Eyes: ABSENT: visual disturbances Ears: ABSENT: hearing changes Cardiovascular: ABSENT: chest pain, dyspnea on exertion, edema, orthropnea, palpitations Respiratory: ABSENT: cough, hemoptysis Gastrointestinal: ABSENT: abdominal pain, constipation, diarrhea, hematemesis, hematochezia, nausea, vomiting Genitourinary: ABSENT: dysuria, hematuria Musculoskeletal: ABSENT: joint swelling Integumentary: ABSENT: rash, wounds Neurological: ABSENT: abnormal gait, abnormal speech, confusion, dizziness, focal weakness, syncope Psychiatric: ABSENT: anxiety, depression, homidical ideation, suicidal ideation Endocrine: ABSENT: cold intolerance, heat intolerance, polydipsia, polyuria Hematologic/Lymphatic: ABSENT: easy bleeding, easy bruising Physical Exam Vital Signs: Temp Pulse Resp BP Pulse Ox 98.0 F 104 H 16 128/60 H 97 07/08/18 04:06 07/08/18 04:06 07/08/18 04:06 07/08/18 04:06 07/08/18 04:06 Intake & Output 07/06/18 07/07/18 07/08/18 11:59 11:59 11:59 Weight 80.9 kg General appearance: PRESENT: cooperative, mild distress, other - Chronically ill -appearing. ABSENT: disheveled Head exam: PRESENT: atraumatic, normocephalic Eye exam: PRESENT: conjunctiva pink, EOMI, PERRLA. ABSENT: scleral icterus Ear exam: PRESENT: normal external ear exam Mouth exam: PRESENT: moist, tongue midline Neck exam: ABSENT: carotid bruit, JVD, lymphadenopathy, thyromegaly Respiratory exam: PRESENT: accessory muscle use, crackles, decreased breath sounds, prolonged expiratory phas, symmetrical, tachypnea. ABSENT: rhonchi Cardiovascular exam: PRESENT: RRR. ABSENT: diastolic murmur, rubs, systolic murmur Pulses: PRESENT: normal dorsalis pedis pul Vascular exam: PRESENT: normal capillary refill GI/Abdominal exam: PRESENT: normal bowel sounds, soft. ABSENT: distended, guarding, mass, organolmegaly, rebound, tenderness Rectal exam: PRESENT: deferred Extremities exam: PRESENT: full ROM. ABSENT: calf tenderness, clubbing, pedal edema Neurological exam: PRESENT: alert, awake, oriented to person, oriented to place , oriented to time, oriented to situation, CN II-XII grossly intact. ABSENT: motor sensory deficit Psychiatric exam: PRESENT: appropriate affect, normal mood. ABSENT: homicidal ideation, suicidal ideation Skin exam: PRESENT: dry, intact, warm. ABSENT: cyanosis, rash Results Laboratory Results: 07/08/18 04:15 07/08/18 04:15 07/08/18 07/08/18 04:15 04:15 WBC 6.0 RBC 3.26 L Hgb 9.7 L Hct 28.7 L MCV 88 MCH 29.8 MCHC 33.9 RDW 15.5 H Plt Count 83 L Seg Neutrophils % 81.4 H Lymphocytes % 9.4 L Monocytes % 7.0 Eosinophils % 2.0 Basophils % 0.2 Absolute Neutrophils 4.9 Absolute Lymphocytes 0.6 Absolute Monocytes 0.4 Absolute Eosinophils 0.1 Absolute Basophils 0.0 Sodium 143.4 Potassium 3.2 L Chloride 104 Carbon Dioxide 33 H Anion Gap 6 BUN 13 Creatinine 0.68 Est GFR ( Amer) > 60 Est GFR (Non-Af Amer) > 60 Glucose 77 Calcium 8.4 Impressions: Chest X-Ray 07/07/18 15:39 IMPRESSION: Near total interval resolution of previously seen bilateral pleural effusions. No new airspace opacity. Unchanged masslike opacity of the right hilum. Chest/Abdomen CTA 07/07/18 17:50 IMPRESSION: No pulmonary emboli. Moderate to large bilateral pleural effusions right greater than left. On the right side extension to the level of the hilum with there is dense consolidation and atelectasis but no definitive mass lesion. 2 cm solid mass arising from the right kidney. Suspicious for renal cell carcinoma. Assessment & Plan - Diagnosis (1) Pleural effusion, bilateral Is this a current diagnosis for this admission?: Yes Plan: No history of heart failure, unclear cause, trial loop diuretic, consider thoracentesis. Supplemental oxygen and BiPAP as needed, follow-up chest x-ray (2) COPD exacerbation Is this a current diagnosis for this admission?: Yes Plan: Albuterol, Atrovent, flutter valve. Supplemental oxygen (3) Renal cell carcinoma Qualifiers: Laterality: right Qualified Code(s): C64.1 - Malignant neoplasm of right kidney, except renal pelvis Is this a current diagnosis for this admission?: Yes Plan: Suggested by radiology, patient's advanced premorbid condition will likely prevent aggressive measures, oncology consulted (4) Thrombocytopenia Is this a current diagnosis for this admission?: Yes Plan: Unclear cause, avoid heparins, hematology consulted. - Time Time Spent: 50 to 70 Minutes - Inpatient Certification Medical Necessity: Need Close Monitoring Due to Risk of Patient Decompensation
[2018-07-08] MEDS ORDERED: LANSOPRAZOLE 30 MG TAB.RAP.DR PO SCH (10:00)
[2018-07-08] MEDS ORDERED: LEVOTHYROXINE SODIUM 0.112 MG TABLET PO SCH (10:00)
--- NOTE | 2018-07-08 10:47 | EKG REPORT ---
SEVERITY:- ABNORMAL ECG - SINUS TACHYCARDIA RIGHT BUNDLE BRANCH BLOCK : Confirmed by: Mercedes Solomon 08-Jul-2018 10:46:42
[2018-07-08 11:39] LABS: URINE AMPHETAMINES SCREEN NEGATIVE; URINE BARBITURATES SCREEN NEGATIVE; URINE BENZODIAZEPINES SCREEN NEGATIVE; URINE COCAINE SCREEN NEGATIVE; URINE MARIJUANA (THC) SCREEN NEGATIVE; URINE METHADONE SCREEN NEGATIVE; URINE PHENCYCLIDINE SCREEN NEGATIVE
--- NOTE | 2018-07-08 11:40 | PDOC CONSULTATION ---
Consultation Consult Date: 07/08/18 Attending physician:: IVÁN EDWARDS Consult reason:: New renal mass thrombocytopenia History of Present Illness Admission Date/PCP: 07/07/18 19:32 BAKARI VELARDE MD History of Present Illness: TRENTON MCCOY is a 72 year old female with a known history of severe COPD, recent prolonged admission for severe pneumococcal sepsis, also history of ESBL , during that hospitalization did have CT of the abdomen pelvis but that did not show any abnormality, because she presented with shortness of breath acutely worsened she had a CTA of the chest and this indicated 2 cm solid right kidney mass, also thrombocytopenia that has been persistent since the last admission. She does have a stable mild dementia. Patient is doing better today in terms of shortness of breath. Past Medical History Cardiac Medical History: Reports: Congestive Heart Failure, Coronary Artery Disease, Myocardial Infarction, Hypertension Denies: DVT, Hyperlipidema, Pulmonary Embolism Pulmonary Medical History: Reports: Asthma, Bronchitis, Chronic Obstructive Pulmonary Disease (COPD) - 2 L nasal home oxygen, Pneumonia, Respiratory Failure - Chronic respiratory failure Denies: Sleep Apnea, Tuberculosis Neurological Medical History: Denies: Seizures Endocrine Medical History: Reports: Diabetes Mellitus Type 2, Hypothyroidism Denies: Diabetes Mellitus Type 1, Hyperthyroidism Renal/ Medical History: Denies: End Stage Renal Disease Malignancy Medical History: Reports: Brain Cancer - Lung cancer with brain metastases, 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 GI Medical History: Reports: Gastroesophageal Reflux Disease Denies: Cirrhosis, Hepatitis Musculoskeltal Medical History: Reports: Arthritis Psychiatric Medical History: Reports: Dementia, Depression Denies: Bipolar Disorder Hematology: Reports: Anemia, Bleeding Tendencies Infectious Medical History: Reports: Clostridium Difficile Past Surgical History Past Surgical History: Reports: Cholecystectomy, Orthopedic Surgery - Foot surgery, Other - cataract bilateral Social History Lives with: Group Home Smoking Status: Unknown if Ever Smoked Frequency of Alcohol Use: None Hx Recreational Drug Use: No Drugs: None Hx Prescription Drug Abuse: No - Advance Directive Resuscitation Status: Full Code Family History Family History: COPD, Malignancy - Lung cancer Parental Family History Reviewed: Yes Children Family History Reviewed: Yes Sibling(s) Family History Reviewed.: Yes Medication/Allergy Allergies/Adverse Reactions: azithromycin Allergy (Verified 06/20/18 20:48) amoxicillin [Amoxicillin] Adverse Reaction (Verified 06/20/18 20:48) visual hallucinations erythromycin base [Erythromycin Base] Adverse Reaction (Verified 06/20/18 20:48) visual hallucinations Potassium Clavulanate * [From Augmentin] Adverse Reaction (Verified 06/20/18 20: 48) visual hallucinations Review of Systems Constitutional: ABSENT: chills, fever(s), headache(s), weight gain, weight loss Eyes: ABSENT: visual disturbances Ears: ABSENT: hearing changes Cardiovascular: ABSENT: chest pain, dyspnea on exertion, edema, orthropnea, palpitations Respiratory: ABSENT: cough, hemoptysis Gastrointestinal: ABSENT: abdominal pain, constipation, diarrhea, hematemesis, hematochezia, nausea, vomiting Genitourinary: ABSENT: dysuria, hematuria Musculoskeletal: ABSENT: joint swelling Integumentary: ABSENT: rash, wounds Neurological: ABSENT: abnormal gait, abnormal speech, confusion, dizziness, focal weakness, syncope Psychiatric: ABSENT: anxiety, depression, homidical ideation, suicidal ideation Endocrine: ABSENT: cold intolerance, heat intolerance, polydipsia, polyuria Hematologic/Lymphatic: ABSENT: easy bleeding, easy bruising Physical Exam Vital Signs: Temp Pulse Resp BP Pulse Ox 98.0 F 90 18 123/65 90 L 07/08/18 07:12 07/08/18 08:40 07/08/18 11:19 07/08/18 07:12 07/08/18 11:19 Intake & Output 07/07/18 07/08/18 07/09/18 06:59 06:59 06:59 Weight 80.9 kg General appearance: PRESENT: no acute distress, well-developed, well-nourished Head exam: PRESENT: atraumatic, normocephalic Eye exam: PRESENT: conjunctiva pink, EOMI, PERRLA. ABSENT: scleral icterus Ear exam: PRESENT: normal external ear exam Mouth exam: PRESENT: moist, tongue midline Neck exam: ABSENT: carotid bruit, JVD, lymphadenopathy, thyromegaly Respiratory exam: PRESENT: clear to auscultation jeff. ABSENT: rales, rhonchi, wheezes Cardiovascular exam: PRESENT: RRR. ABSENT: diastolic murmur, rubs, systolic murmur Pulses: PRESENT: normal dorsalis pedis pul Vascular exam: PRESENT: normal capillary refill GI/Abdominal exam: PRESENT: normal bowel sounds, soft. ABSENT: distended, guarding, mass, organolmegaly, rebound, tenderness Rectal exam: PRESENT: deferred Extremities exam: PRESENT: full ROM. ABSENT: calf tenderness, clubbing, pedal edema Neurological exam: PRESENT: alert, awake, oriented to person, oriented to place , oriented to time, oriented to situation, CN II-XII grossly intact. ABSENT: motor sensory deficit Psychiatric exam: PRESENT: appropriate affect, normal mood. ABSENT: homicidal ideation, suicidal ideation Skin exam: PRESENT: dry, intact, warm. ABSENT: cyanosis, rash Results Laboratory Results: 07/08/18 04:15 07/08/18 04:15 07/08/18 07/08/18 04:15 04:15 WBC 6.0 RBC 3.26 L Hgb 9.7 L Hct 28.7 L MCV 88 MCH 29.8 MCHC 33.9 RDW 15.5 H Plt Count 83 L Seg Neutrophils % 81.4 H Lymphocytes % 9.4 L Monocytes % 7.0 Eosinophils % 2.0 Basophils % 0.2 Absolute Neutrophils 4.9 Absolute Lymphocytes 0.6 Absolute Monocytes 0.4 Absolute Eosinophils 0.1 Absolute Basophils 0.0 Sodium 143.4 Potassium 3.2 L Chloride 104 Carbon Dioxide 33 H Anion Gap 6 BUN 13 Creatinine 0.68 Est GFR ( Amer) > 60 Est GFR (Non-Af Amer) > 60 Glucose 77 Calcium 8.4 Impressions: Chest X-Ray 07/07/18 15:39 IMPRESSION: Near total interval resolution of previously seen bilateral pleural effusions. No new airspace opacity. Unchanged masslike opacity of the right hilum. Chest/Abdomen CTA 07/07/18 17:50 IMPRESSION: No pulmonary emboli. Moderate to large bilateral pleural effusions right greater than left. On the right side extension to the level of the hilum with there is dense consolidation and atelectasis but no definitive mass lesion. 2 cm solid mass arising from the right kidney. Suspicious for renal cell carcinoma. Status: Image reviewed by me Assessment & Plan - Diagnosis (1) Right renal mass Plan: Right renal mass 2 cm, does look concerning for renal cell carcinoma, at this point given her other multiple comorbidities we would not recommend any further diagnostics just follow-up as an outpatient with serial imaging to follow the growth. Generally of renal cell carcinomas get above 3-4 cm, we would consider urologic evaluation and consideration for primary surgery. But in her case because of her multiple comorbidities, it is possible that she would never be a candidate for surgical resection. But she may be a candidate for some sort of cryoablation interventional type procedure. (2) Thrombocytopenia Is this a current diagnosis for this admission?: Yes Plan: Probably myelosuppression from previous admission, this should improve to a slightly higher baseline, but in review of several years of platelet counts, she probably will remain at a platelet count at best of around 100. Will follow. - Time Time Spent: Greater than 70 Minutes - Inpatient Certification Based on my medical assessment, after consideration of the patient's comorbidities, presenting symptoms, or acuity I expect that the services needed warrant INPATIENT care.: Yes I certify that my determination is in accordance with my understanding of Medicare's requirements for reasonable and necessary INPATIENT services [42 CFR 412.3e].: Yes Medical Necessity: Need for Nebulizer Therapy and Monitoring of Response, Risk of Complication if Not Cared For in Hospital
[2018-07-08] MEDS: FLUTICASONE NASAL SPRAY 50 MCG/SPRY 120 SPRAY/16 GM NASL SCH ×2 (12:00→21:37)
[2018-07-08] MEDS: OLOPATADINE HCL 0.1% OPH SOLN 5 ML OU SCH ×2 (12:36→18:25)
[2018-07-08 14:48] LABS: ARTERIAL BLOOD BASE EXCESS 6.5 mmol/L; ARTERIAL BLOOD H2CO3 1.49 mmol/L (1.05-1.35); ARTERIAL BLOOD O2 SATURATION 92.1 % (94-98); ARTERIAL BLOOD PCO2 49.4 mmHg (35-45); ARTERIAL BLOOD PH 7.43 (7.35-7.45); ARTERIAL BLOOD TOTAL CO2 33.5 mmol/L (21-25)
[2018-07-08 14:49] LABS: ARTERIAL BLOOD FIO2 28%
[2018-07-08] MEDS ORDERED: POTASSIUM CHLORIDE 10 MEQ CAPSULE.ER PO ONE (16:49)
--- NOTE | 2018-07-08 16:54 | PDOC PROGRESS REPORT ---
Subjective Progress Note for:: 07/08/18 Subjective:: The patient is a 72-year-old female with past medical history of CHF, CAD, NM, hypertension, COPD who is O2 dependent, DM 2, hypothyroidism, remote lung cancer , GERD, arthritis, and anemia who was recently discharged to SNF after a prolonged admission for sepsis secondary to COPD exacerbation and pneumonia requiring intubation. The patient was readmitted 07/07/18 for acute on chronic respiratory failure secondary to COPD exacerbation, bilateral pleural effusions and incidentally found to have a new renal cell carcinoma. The patient was seen on morning rounds. She was resting in bed comfortably on supplemental oxygen via NC at 2 lpm. She was sleeping soundly, but woke after saying her name and shaking her shoulder gently. She is orientated to self and place. She tells me that she feels fine and is unable to explain why she was brought to the emergency room last night. She denies fever, chills, body aches, chest pain, palpitations, dyspnea, abdominal pain, nausea and vomiting. She has no concerns at this time. Reason For Visit: RENAL MASS, PLEURAL EFF Physical Exam Vital Signs: Temp Pulse Resp BP Pulse Ox 98.9 F 91 17 126/69 H 98 07/08/18 12:00 07/08/18 14:00 07/08/18 12:00 07/08/18 12:00 07/08/18 12:00 Intake & Output 07/07/18 07/08/18 07/09/18 06:59 06:59 06:59 Weight 80.9 kg General appearance: PRESENT: no acute distress, well-developed, well-nourished - Overweight, other - chronically ill appearing Head exam: PRESENT: atraumatic, normocephalic Eye exam: PRESENT: conjunctiva pink, EOMI, PERRLA. ABSENT: scleral icterus Ear exam: PRESENT: normal external ear exam Mouth exam: PRESENT: moist, tongue midline Neck exam: ABSENT: carotid bruit, JVD, lymphadenopathy, thyromegaly Respiratory exam: PRESENT: decreased breath sounds, prolonged expiratory phas, rhonchi, symmetrical, unlabored. ABSENT: rales, wheezes Cardiovascular exam: PRESENT: RRR. ABSENT: diastolic murmur, rubs, systolic murmur Pulses: PRESENT: normal dorsalis pedis pul Vascular exam: PRESENT: normal capillary refill GI/Abdominal exam: PRESENT: normal bowel sounds, soft. ABSENT: distended, guarding, mass, organolmegaly, rebound, tenderness Rectal exam: PRESENT: deferred Extremities exam: PRESENT: full ROM. ABSENT: calf tenderness, clubbing, pedal edema Neurological exam: PRESENT: alert, awake, oriented to person, oriented to place , oriented to time, oriented to situation, CN II-XII grossly intact. ABSENT: motor sensory deficit Psychiatric exam: PRESENT: appropriate affect, normal mood. ABSENT: homicidal ideation, suicidal ideation Skin exam: PRESENT: dry, intact, warm. ABSENT: cyanosis, rash Results Laboratory Results: 07/08/18 04:15 07/08/18 04:15 07/08/18 07/08/18 07/08/18 04:15 04:15 13:20 WBC 6.0 RBC 3.26 L Hgb 9.7 L Hct 28.7 L MCV 88 MCH 29.8 MCHC 33.9 RDW 15.5 H Plt Count 83 L Seg Neutrophils % 81.4 H Lymphocytes % 9.4 L Monocytes % 7.0 Eosinophils % 2.0 Basophils % 0.2 Absolute Neutrophils 4.9 Absolute Lymphocytes 0.6 Absolute Monocytes 0.4 Absolute Eosinophils 0.1 Absolute Basophils 0.0 Carbonic Acid 1.49 H HCO3/H2CO3 Ratio 21:1 ABG pH 7.43 ABG pCO2 49.4 H ABG pO2 62.0 L ABG HCO3 32.0 H ABG O2 Saturation 92.1 L ABG Base Excess 6.5 FiO2 28% Sodium 143.4 Potassium 3.2 L Chloride 104 Carbon Dioxide 33 H Anion Gap 6 BUN 13 Creatinine 0.68 Est GFR ( Amer) > 60 Est GFR (Non-Af Amer) > 60 Glucose 77 Calcium 8.4 Impressions: Chest X-Ray 07/07/18 15:39 IMPRESSION: Near total interval resolution of previously seen bilateral pleural effusions. No new airspace opacity. Unchanged masslike opacity of the right hilum. Chest/Abdomen CTA 07/07/18 17:50 IMPRESSION: No pulmonary emboli. Moderate to large bilateral pleural effusions right greater than left. On the right side extension to the level of the hilum with there is dense consolidation and atelectasis but no definitive mass lesion. 2 cm solid mass arising from the right kidney. Suspicious for renal cell carcinoma. Assessment & Plan - Diagnosis (1) Acute on chronic respiratory failure with hypoxia and hypercapnia Is this a current diagnosis for this admission?: Yes Plan: Acute on chronic respiratory failure secondary to COPD exacerbation and bilateral pleural effusions. Patient was recently treated for right lower lobe pneumonia. Chest x-ray revealed unchanged masslike opacity in the right hilum, no new airspace opacity. CTA of the chest demonstrated moderate to large bilateral pleural effusions ABG demonstrated compensated respiratory acidosis with hypercapnia and hypoxia. Patient is admitted to [facility] on continuous cardiac telemetry. S 1 he is provided supplemental oxygen as needed to maintain oxygen saturations greater than 89%. BiPAP is ordered nightly and as needed. She is supported with scheduled and as needed nebulizer treatments. P.o prednisone. Mucinex twice daily. Will ask Interventional Radiology to evaluate for thoracentesis. Hold heparin for procedure. (2) COPD exacerbation Is this a current diagnosis for this admission?: Yes Plan: Plan as above: Supplemental oxygen, BiPAP, steroids, neb treatments, Mucinex (3) Pleural effusion, bilateral Is this a current diagnosis for this admission?: Yes Plan: Unclear etiology; patient was recently treated for pneumonia. May be infectious related to recent acute illness. No history of CHF or liver failure. We will ask Interventional Radiology to do a thoracentesis tomorrow. (4) Renal cell carcinoma Qualifiers: Laterality: right Qualified Code(s): C64.1 - Malignant neoplasm of right kidney, except renal pelvis Is this a current diagnosis for this admission?: Yes Plan: 2 cm right renal mass incidentally found on CT of the chest and abdomen. Concerning for renal cell carcinoma. Oncology has been consulted; appreciate Dr. Syed Mccartney evaluation recommendations. (5) Thrombocytopenia Is this a current diagnosis for this admission?: Yes Plan: Likely myelosuppression from multiple acute illnesses. Oncology/hematology has been consulted; appreciate Dr. Montero's evaluation recommendations. Holding pharmacological DVT prophylaxis secondary to thrombuscytopenia; SCDs are ordered. (6) Hypokalemia Is this a current diagnosis for this admission?: Yes Plan: Likely secondary to IV furosemide overnight. Will replace with p.o. potassium. Daily chemistries. (7) Type 2 diabetes mellitus Qualifiers: Diabetes mellitus intermediate project manager insulin use: without detention use Diabetes mellitus complication status: with unspecified complications Qualified Code(s) : E11.8 - Type 2 diabetes mellitus with unspecified complications Is this a current diagnosis for this admission?: Yes Plan: The patient is placed on a consistent carb diet. Accu-Cheks before meals and at bedtime with Humalog for sliding scale coverage. Hypoglycemia protocol in place. (8) Hypothyroid Qualifiers: Hypothyroidism type: unspecified Qualified Code(s): E03.9 - Hypothyroidism , unspecified Is this a current diagnosis for this admission?: Yes Plan: Home dose levothyroxine is continued. 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 During her last admission she was less symptomatic with close attention to her respiratory status and utilization of BiPAP nightly. Avoid benzodiazepines as able to risk for respiratory depression. Will trial Geodon 20 mg p.o. twice daily as needed agitation. Consider initiation of BuSpar twice daily. Fall precautions. - Time Time Spent with patient: 25-34 minutes Medications reviewed and adjusted accordingly: Yes Anticipated discharge: SNF
[2018-07-08] MEDS ORDERED: PREDNISONE 20 MG TABLET PO ONE (17:15)
[2018-07-08] MEDS ORDERED: MENTHOL TP SCH (18:00)
[2018-07-08] MEDS ORDERED: CAMPHOR TP SCH (18:00)
[2018-07-08] MEDS: NYSTATIN CREAM 15 GM TP SCH (18:23)
[2018-07-08] MEDS: NYSTATIN TOPICAL POWDER 15 GM TP SCH (18:24)
[2018-07-08] MEDS: GUAIFENESIN 600 MG TABLET.SA PO SCH (21:37)
[2018-07-08] MEDS ORDERED: (PENDING PHARMACY ID) (Guaifenesin [Mucinex] 600 MG) PO SCH (22:00)
[2018-07-08] MEDS ORDERED: FUROSEMIDE INJ/PF 20 MG/2 ML SDV IV SCH (22:00)
[2018-07-09] MEDS: IPRATROPIUM BROMIDE 0.02% NEB 0.5 MG/2.5 ML AMPUL NEB SCH ×3 (00:38→15:57)
[2018-07-09] MEDS: LEVALBUTEROL HCL NEB 1.25 MG/3 ML AMPUL NEB SCH ×3 (00:38→15:57)
[2018-07-09] MEDS ORDERED: LANSOPRAZOLE 30 MG TAB.RAP.DR PO SCH (06:00)
[2018-07-09] MEDS: LANSOPRAZOLE 30 MG TAB.RAP.DR PO SCH (06:10)
[2018-07-09] MEDS: LEVOTHYROXINE SODIUM 0.112 MG TABLET PO SCH (06:10)
--- NOTE | 2018-07-09 08:08 | PDOC PROGRESS REPORT ---
Subjective Progress Note for:: 07/09/18 Subjective:: No acute events overnight Reason For Visit: RENAL MASS, PLEURAL EFF Physical Exam Vital Signs: Temp Pulse Resp BP Pulse Ox 98.1 F 96 18 131/81 H 100 07/09/18 03:53 07/09/18 03:53 07/09/18 03:53 07/09/18 03:53 07/09/18 03:53 Intake & Output 07/08/18 07/09/18 07/10/18 06:59 06:59 06:59 Intake Total 474 Output Total 420 Balance 54 Weight 80.9 kg 81.9 kg General appearance: PRESENT: no acute distress, well-developed, well-nourished Head exam: PRESENT: atraumatic, normocephalic Eye exam: PRESENT: conjunctiva pink, EOMI, PERRLA. ABSENT: scleral icterus Ear exam: PRESENT: normal external ear exam Mouth exam: PRESENT: moist, tongue midline Neck exam: ABSENT: carotid bruit, JVD, lymphadenopathy, thyromegaly Respiratory exam: PRESENT: clear to auscultation jeff. ABSENT: rales, rhonchi, wheezes Cardiovascular exam: PRESENT: RRR. ABSENT: diastolic murmur, rubs, systolic murmur Pulses: PRESENT: normal dorsalis pedis pul Vascular exam: PRESENT: normal capillary refill GI/Abdominal exam: PRESENT: normal bowel sounds, soft. ABSENT: distended, guarding, mass, organolmegaly, rebound, tenderness Rectal exam: PRESENT: deferred Extremities exam: PRESENT: full ROM. ABSENT: calf tenderness, clubbing, pedal edema Neurological exam: PRESENT: alert, awake, oriented to person, oriented to place , oriented to time, oriented to situation, CN II-XII grossly intact. ABSENT: motor sensory deficit Psychiatric exam: PRESENT: appropriate affect, normal mood. ABSENT: homicidal ideation, suicidal ideation Skin exam: PRESENT: dry, intact, warm. ABSENT: cyanosis, rash Results Laboratory Results: 07/08/18 04:15 07/08/18 04:15 07/08/18 13:20 Carbonic Acid 1.49 H HCO3/H2CO3 Ratio 21:1 ABG pH 7.43 ABG pCO2 49.4 H ABG pO2 62.0 L ABG HCO3 32.0 H ABG O2 Saturation 92.1 L ABG Base Excess 6.5 FiO2 28% Impressions: Chest X-Ray 07/07/18 15:39 IMPRESSION: Near total interval resolution of previously seen bilateral pleural effusions. No new airspace opacity. Unchanged masslike opacity of the right hilum. Chest/Abdomen CTA 07/07/18 17:50 IMPRESSION: No pulmonary emboli. Moderate to large bilateral pleural effusions right greater than left. On the right side extension to the level of the hilum with there is dense consolidation and atelectasis but no definitive mass lesion. 2 cm solid mass arising from the right kidney. Suspicious for renal cell carcinoma. Assessment & Plan - Diagnosis (1) Right renal mass Is this a current diagnosis for this admission?: Yes Plan: Follow-up as an outpatient with serial imaging. (2) Thrombocytopenia Is this a current diagnosis for this admission?: Yes Plan: Platelet count is slightly lower, will probably fluctuate during this admission. May have low-grade DIC. - Time Time Spent with patient: 35 or more minutes Disposition: We will follow peripherally - Inpatient Certification Based on my medical assessment, after consideration of the patient's comorbidities, presenting symptoms, or acuity I expect that the services needed warrant INPATIENT care.: Yes I certify that my determination is in accordance with my understanding of Medicare's requirements for reasonable and necessary INPATIENT services [42 CFR 412.3e].: Yes Medical Necessity: Risk of Complication if Not Cared For in Hospital
[2018-07-09 08:33] LABS: HEMATOCRIT 24.3 % (36.0-47.0); HEMOGLOBIN 8.4 g/dL (12.0-15.5); MEAN CORPUSCULAR HEMOGLOBIN 30.2 pg (27.0-33.4); MEAN CORPUSCULAR HGB CONC 34.5 g/dL (32.0-36.0); MEAN CORPUSCULAR VOLUME 88 fl (80-97); RED BLOOD COUNT 2.78 10^6/uL (3.72-5.28); RED CELL DISTRIBUTION WIDTH 15.3 % (11.5-14.0); WHITE BLOOD COUNT 5.9 10^3/uL (4.0-10.5)
[2018-07-09 08:35] LABS: INTERNATIONAL RATION (INR) 0.92; PROTHROMBIN TIME 12.8 SEC (11.4-15.4)
[2018-07-09 08:36] LABS: PARTIAL THROMBOPLASTIN TIME 24.5 SEC (23.5-35.8)
[2018-07-09 08:45] LABS: BLOOD UREA NITROGEN 14 mg/dL (7-20); CALCIUM 8.2 mg/dL (8.4-10.2); GLUCOSE 152 mg/dL (75-110); POTASSIUM 4.2 mmol/L (3.6-5.0)
[2018-07-09 08:50] LABS: ANION GAP 6 (5-19); CARBON DIOXIDE 33 mmol/L (22-30); CHLORIDE 106 mmol/L (98-107); SODIUM 144.5 mmol/L (137-145)
[2018-07-09 09:21] LABS: PLATELET COUNT 84 10^3/uL (150-450)
[2018-07-09] MEDS: PREDNISONE 20 MG TABLET PO SCH (09:30)
[2018-07-09] MEDS: GUAIFENESIN 600 MG TABLET.SA PO SCH ×2 (09:32→21:26)
[2018-07-09] MEDS: NYSTATIN TOPICAL POWDER 15 GM TP SCH ×2 (09:33→17:36)
[2018-07-09] MEDS: NYSTATIN CREAM 15 GM TP SCH ×2 (09:34→17:37)
[2018-07-09] MEDS: FLUTICASONE NASAL SPRAY 50 MCG/SPRY 120 SPRAY/16 GM NASL SCH ×2 (09:35→21:29)
[2018-07-09] MEDS: OLOPATADINE HCL 0.1% OPH SOLN 5 ML OU SCH ×2 (09:35→17:37)
[2018-07-09] MEDS: MULTIVITAMINS W-IRON TABLET, CHEWABLE PO SCH (09:35)
[2018-07-09] MEDS: TIOTROPIUM BROMIDE DPI 5 CAP/KIT (18 MCG/CAP) IH SCH (09:35)
[2018-07-09] MEDS ORDERED: MULTIVITAMIN WITH IRON PO SCH (10:00)
[2018-07-09] MEDS ORDERED: FLUCONAZOLE 100 MG TABLET PO SCH (10:00)
--- NOTE | 2018-07-09 13:28 | PDOC PROGRESS REPORT ---
Subjective Progress Note for:: 07/09/18 Subjective:: The patient is a 72-year-old female with past medical history of CHF, CAD, PR, hypertension, COPD who is O2 dependent, DM 2, hypothyroidism, remote lung cancer , GERD, arthritis, and anemia who was recently discharged to SNF after a prolonged admission for sepsis secondary to COPD exacerbation and pneumonia requiring intubation. The patient was readmitted 07/07/18 for acute on chronic respiratory failure secondary to COPD exacerbation, bilateral pleural effusions and incidentally found to have a new renal cell carcinoma. The patient was seen on morning rounds with nursing present. She was resting in bed comfortably on supplemental oxygen via NC at 2 lpm. She is awake and oriented to self, place, president (did not know the year, did identify President Malika), and situation. She tells me that she slept well overnight and is feeling much better today. She reports improvement in her respiratory status and a decrease in her cough. She asks questions regarding the anticipated thoracentesis and clearly understands the indications and risks/ benefits of the procedure at this time. Of note, the patient does have intermittent confusion related to her dementia, sundowning, and fragile respiratory status. The patient states that hospital staff (providers and nurses) may speak with all of her family members; indicating her son Jason, her daughter Catherine, and her granddaughter Corinna. She specifies that she would want her surrogate decision makers to be her daughter followed by her son. She indicates that she knows that she will likely be discharged back to [facility] but remains hopeful that she will be able to move to live with her daughter in [place]. She denies fever, chills, body aches, chest pain, palpitations, dyspnea, orthopnea, cough abdominal pain, nausea, vomiting and diarrhea. She has no concerns at this time. No concerns per nursing. Reason For Visit: RENAL MASS, PLEURAL EFF Physical Exam Vital Signs: Temp Pulse Resp BP Pulse Ox 98.6 F 88 20 132/71 H 95 07/09/18 08:55 07/09/18 08:26 07/09/18 08:55 07/09/18 08:55 07/09/18 08:26 Intake & Output 07/08/18 07/09/18 07/10/18 06:59 06:59 06:59 Intake Total 474 Output Total 420 Balance 54 Weight 80.9 kg 81.9 kg General appearance: PRESENT: no acute distress, cooperative, well-developed, well-nourished - overweight Head exam: PRESENT: atraumatic, normocephalic Eye exam: PRESENT: conjunctiva pink, EOMI, PERRLA. ABSENT: scleral icterus Ear exam: PRESENT: normal external ear exam Mouth exam: PRESENT: moist, tongue midline Neck exam: ABSENT: carotid bruit, JVD, lymphadenopathy, thyromegaly Respiratory exam: PRESENT: decreased breath sounds - bibasilar, rhonchi - slight , symmetrical, unlabored, wheezes - slight, expiratory wheeze RLL. ABSENT: rales Cardiovascular exam: PRESENT: RRR. ABSENT: diastolic murmur, rubs, systolic murmur Pulses: PRESENT: normal dorsalis pedis pul Vascular exam: PRESENT: normal capillary refill GI/Abdominal exam: PRESENT: normal bowel sounds, soft. ABSENT: distended, guarding, mass, organolmegaly, rebound, tenderness Rectal exam: PRESENT: deferred Extremities exam: PRESENT: full ROM. ABSENT: calf tenderness, clubbing, pedal edema Neurological exam: PRESENT: alert, awake, oriented to person, oriented to place , oriented to time, oriented to situation, CN II-XII grossly intact. ABSENT: motor sensory deficit Psychiatric exam: PRESENT: appropriate affect, normal mood. ABSENT: homicidal ideation, suicidal ideation Skin exam: PRESENT: dry, intact, warm. ABSENT: cyanosis, rash Results Laboratory Results: 07/09/18 08:10 07/09/18 08:10 07/08/18 07/09/18 07/09/18 13:20 08:10 08:10 WBC 5.9 RBC 2.78 L Hgb 8.4 L Hct 24.3 L MCV 88 MCH 30.2 MCHC 34.5 RDW 15.3 H Plt Count 84 L Carbonic Acid 1.49 H HCO3/H2CO3 Ratio 21:1 ABG pH 7.43 ABG pCO2 49.4 H ABG pO2 62.0 L ABG HCO3 32.0 H ABG O2 Saturation 92.1 L ABG Base Excess 6.5 FiO2 28% Sodium 144.5 Potassium 4.2 Chloride 106 Carbon Dioxide 33 H Anion Gap 6 BUN 14 Creatinine 0.75 Est GFR ( Amer) > 60 Est GFR (Non-Af Amer) > 60 Glucose 152 H Calcium 8.2 L Impressions: Chest X-Ray 07/07/18 15:39 IMPRESSION: Near total interval resolution of previously seen bilateral pleural effusions. No new airspace opacity. Unchanged masslike opacity of the right hilum. Chest/Abdomen CTA 07/07/18 17:50 IMPRESSION: No pulmonary emboli. Moderate to large bilateral pleural effusions right greater than left. On the right side extension to the level of the hilum with there is dense consolidation and atelectasis but no definitive mass lesion. 2 cm solid mass arising from the right kidney. Suspicious for renal cell carcinoma. Assessment & Plan - Diagnosis (1) Acute on chronic respiratory failure with hypoxia and hypercapnia Is this a current diagnosis for this admission?: Yes Plan: Improved. Acute on chronic respiratory failure secondary to COPD exacerbation and bilateral pleural effusions. Patient was recently treated for right lower lobe pneumonia. Chest x-ray revealed unchanged masslike opacity in the right hilum, no new airspace opacity. CTA of the chest demonstrated moderate to large bilateral pleural effusions ABG demonstrated compensated respiratory acidosis with hypercapnia and hypoxia. Patient is admitted to [facility] on continuous cardiac telemetry. She is provided supplemental oxygen as needed to maintain oxygen saturations greater than 89%. BiPAP is ordered nightly and as needed. She is supported with scheduled and as needed nebulizer treatments. P.o prednisone. Mucinex twice daily. Will ask Interventional Radiology to evaluate for thoracentesis. Spoke w/ Dr. Alvarez; recommends evaluation for repeat throacentesis on the other side tomorrow. Consider formal Pulmonology consultation if pt does not continue to improve. (2) COPD exacerbation Is this a current diagnosis for this admission?: Yes Plan: Significant improvement. Plan as above: Supplemental oxygen, BiPAP, steroids, neb treatments, Mucinex (3) Pleural effusion, bilateral Is this a current diagnosis for this admission?: Yes Plan: Unclear etiology; patient was recently treated for pneumonia. May be infectious related to recent acute illness. No history of CHF or liver failure. We will ask Interventional Radiology to do a thoracentesis today; possible repeat thoracentesis tomorrow on opposite side. (4) Renal cell carcinoma Qualifiers: Laterality: right Qualified Code(s): C64.1 - Malignant neoplasm of right kidney, except renal pelvis Is this a current diagnosis for this admission?: Yes Plan: 2 cm right renal mass incidentally found on CT of the chest and abdomen. Concerning for renal cell carcinoma. Oncology has been consulted; appreciate Dr. Montero's evaluation and recommendations. (5) Thrombocytopenia Is this a current diagnosis for this admission?: Yes Plan: Likely myelosuppresion from multiple acute illnesses. Oncology/hematology has been consulted; appreciate Dr. Montero's evaluation recommendations. Holding pharmacological DVT prophylaxis secondary to thrombocytopenia; SCDs are ordered. (6) Hypokalemia Is this a current diagnosis for this admission?: Yes Plan: Replete. Daily chemistries. (7) Type 2 diabetes mellitus Qualifiers: Diabetes mellitus retirement insulin use: without retirement use Diabetes mellitus complication status: with unspecified complications Qualified Code(s) : E11.8 - Type 2 diabetes mellitus with unspecified complications Is this a current diagnosis for this admission?: Yes Plan: The patient is placed on a consistent carb diet. Accu-Cheks before meals and at bedtime with Humalog for sliding scale coverage. Hypoglycemia protocol in place. (8) Hypothyroid Qualifiers: Hypothyroidism type: unspecified Qualified Code(s): E03.9 - Hypothyroidism , unspecified Is this a current diagnosis for this admission?: Yes Plan: Home dose levothyroxine is continued. 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 During her last admission she was less symptomatic with close attention to her respiratory status and utilization of BiPAP nightly. Avoid benzodiazepines as able to risk for respiratory depression. Will trial Geodon 20 mg p.o. twice daily as needed agitation. Consider initiation of BuSpar twice daily. Fall precautions.
[2018-07-09 14:52] LABS: FLUID APPEARANCE CLEAR; FLUID COLOR YELLOW; FLUID SOURCE LUNG; FLUID TYPE PLEURAL; FLUID VISCOSITY LIQUID
--- NOTE | 2018-07-09 14:52 | RADIOLOGY REPORT (SQ) ---
EXAM DESCRIPTION: CHEST SINGLE VIEW COMPLETED DATE/TIME: 07/09/2018 2:00 pm REASON FOR STUDY: S/P RT THORACENTESIS COMPARISON: 07/07/2018 EXAM PARAMETERS: NUMBER OF VIEWS: One view. TECHNIQUE: Single frontal radiographic view of the chest acquired. RADIATION DOSE: NA LIMITATIONS: None. FINDINGS: LUNGS AND PLEURA: Perihilar fullness is decreased when compared to prior study. Stable bl unting of the left costophrenic angle. No consolidation or pneumothorax following thoracentesis. MEDIASTINUM AND HILAR STRUCTURES: No masses. Contour normal. HEART AND VASCULAR STRUCTURES: Heart normal in size. Normal vasculature. BONES: No acute findings. HARDWARE: None in the chest. OTHER: No other significant finding. IMPRESSION: No acute findings in the chest. No pneumothorax following thoracentesis. TECHNICAL DOCUMENTATION: JOB ID: [id number] [employer]- All Rights Reserved Reading location - IP/workstation name: [email or web address]
--- NOTE | 2018-07-09 15:00 | RADIOLOGY REPORT (SQ) ---
EXAM DESCRIPTION: U/S THORACENTESIS WITH IMAGING COMPLETED DATE/TIME: 07/09/2018 2:03 pm REASON FOR STUDY: bilateral pleural effusion COMPARISON: CT chest 07/07/2018 LIMITATIONS: None. PROCEDURE: Procedure, risks, benefit, and alternative explained to patient who then gave written con sent. The posterior right chest wall was marked using ultrasound guidance. A time-out was called fo r correct marking verification. Chest prepped and draped using sterile technique. Local anesthesia a chieved using 6 ml of 1% lidocaine injection. A 6fr Safe-T- Centesis set was introduced into the [facility] pleural space. Fluid was aspirated. The catheter was removed and the entry site was covered wit h sterile bandage. No immediate complications noted. Fluid was sent for testing as per the ordering physician Images acquired during the procedure were stored on PACS. FINDINGS: ENTRY SITE: posterior right chest. FLUID VOLUME: 450 mL FLUID ANALYSIS: Clear yellow fluid sent for testing OTHER: No immediate post procedure complication on post procedure chest x-ray dictated separately IMPRESSION: SUCCESSFUL THORACENTESIS USING ULTRASOUND GUIDANCE. COMMENT: Patient medication list reviewed: Yes- Quality ID# [id number]:Eligible professional attests to doc umenting in the medical record they obtained, updated, or reviewed the patient's current medications. TECHNICAL DOCUMENTATION: JOB ID: [id number] [employer]- All Rights Reserved Reading location - IP/workstation name: [email or web address]
[2018-07-09] MEDS: ACETAMINOPHEN 325 MG TABLET PO PRN ×2 (15:57→23:21)
--- NOTE | 2018-07-09 16:34 | RADIOLOGY REPORT (SQ) ---
EXAM DESCRIPTION: CHEST SINGLE VIEW COMPLETED DATE/TIME: 07/09/2018 4:18 pm REASON FOR STUDY: 2 HOURS S/P RT THORACENTESIS COMPARISON: 07/09/2018, 1348 hours 07/07/2018 EXAM PARAMETERS: NUMBER OF VIEWS: One view. TECHNIQUE: Single frontal radiographic view of the chest acquired. RADIATION DOSE: NA LIMITATIONS: None. FINDINGS: LUNGS AND PLEURA: 2 hours post right-sided thoracentesis. No pneumothorax. No recurrent pleural effusion. No focal acute infiltrates right lung. Left lung grossly clear with trace left pleural effusion. No left pneumothorax. MEDIASTINUM AND HILAR STRUCTURES: Scarring in the right perihilar region post radiation therapy, stab le. HEART AND VASCULAR STRUCTURES: Heart normal in size. Normal vasculature. BONES: No acute findings. HARDWARE: None in the chest. OTHER: No other significant finding. IMPRESSION: No pneumothorax 2 hours post right diagnostic and therapeutic thoracentesis. TECHNICAL DOCUMENTATION: JOB ID: [id number] [employer] All Rights Reserved Reading location - IP/workstation name: ON LICENSE OF [facility]
[2018-07-09] MEDS: INSULIN LISPRO 100 UNIT/ML 3 ML VIAL SUBCUT PRN ×2 (17:40→21:39)
[2018-07-09] MEDS: ZIPRASIDONE HCL 20 MG CAPSULE PO PRN (23:21)
[2018-07-10] MEDS: IPRATROPIUM BROMIDE 0.02% NEB 0.5 MG/2.5 ML AMPUL NEB SCH ×4 (00:27→23:44)
[2018-07-10] MEDS: LEVALBUTEROL HCL NEB 1.25 MG/3 ML AMPUL NEB SCH ×4 (00:27→23:44)
[2018-07-10 05:34] LABS: PROTHROMBIN TIME 12.6 SEC (11.4-15.4)
[2018-07-10 05:43] LABS: HEMATOCRIT 26.7 % (36.0-47.0); HEMOGLOBIN 9.1 g/dL (12.0-15.5); MEAN CORPUSCULAR VOLUME 88 fl (80-97); RED BLOOD COUNT 3.03 10^6/uL (3.72-5.28); RED CELL DISTRIBUTION WIDTH 15.4 % (11.5-14.0)
[2018-07-10 06:05] LABS: ANION GAP 5 (5-19); BLOOD UREA NITROGEN 18 mg/dL (7-20); CALCIUM 8.6 mg/dL (8.4-10.2); CARBON DIOXIDE 35 mmol/L (22-30); CHLORIDE 103 mmol/L (98-107); GLUCOSE 119 mg/dL (75-110); POTASSIUM 3.9 mmol/L (3.6-5.0); SODIUM 142.5 mmol/L (137-145)
[2018-07-10] MEDS: LANSOPRAZOLE 30 MG TAB.RAP.DR PO SCH (06:15)
[2018-07-10] MEDS: LEVOTHYROXINE SODIUM 0.112 MG TABLET PO SCH (06:15)
[2018-07-10 06:27] LABS: PLATELET COUNT 91 10^3/uL (150-450)
[2018-07-10] MEDS: FLUTICASONE NASAL SPRAY 50 MCG/SPRY 120 SPRAY/16 GM NASL SCH ×2 (09:21→21:53)
[2018-07-10] MEDS: OLOPATADINE HCL 0.1% OPH SOLN 5 ML OU SCH ×2 (09:21→18:26)
[2018-07-10] MEDS: MULTIVITAMINS W-IRON TABLET, CHEWABLE PO SCH (09:21)
[2018-07-10] MEDS: PREDNISONE 20 MG TABLET PO SCH (09:21)
[2018-07-10] MEDS: GUAIFENESIN 600 MG TABLET.SA PO SCH ×2 (09:21→21:53)
[2018-07-10] MEDS: TIOTROPIUM BROMIDE DPI 5 CAP/KIT (18 MCG/CAP) IH SCH (09:22)
[2018-07-10] MEDS: NYSTATIN CREAM 15 GM TP SCH ×2 (09:22→18:27)
[2018-07-10] MEDS: NYSTATIN TOPICAL POWDER 15 GM TP SCH ×2 (09:22→18:27)
--- NOTE | 2018-07-10 13:32 | PDOC TRANSFER SUMMARY ---
General - Admit/Disc Date/PCP Admission Date/Primary Care Provider: 07/07/18 19:32 BAKARI VELARDE MD Discharge Date: 07/10/18 - Discharge Diagnosis (1) Acute on chronic respiratory failure with hypoxia and hypercapnia Is this a current diagnosis for this admission?: Yes Summary: Acute phase is resolved; acute on chronic respiratory failure secondary to COPD exacerbation and bilateral pleural effusions with recent right lower lobe pneumonia (resolving). Chest x-ray revealed unchanged masslike opacity in the right hilum, no new airspace opacity. CTA of the chest demonstrated moderate to large bilateral pleural effusions ABG demonstrated compensated respiratory acidosis with hypercapnia and hypoxia. Patient was admitted to [facility] on continuous cardiac telemetry. She was provided supplemental oxygen as needed to maintain oxygen saturations greater than 89% with BiPAP nightly and as needed. The patient did intermittently decline BiPAP use; of note, the following days the patient was noted to be more confused and somnolent than on days that she had used BiPAP the night previously. Strongly recommend continued nightly BiPAP use. She was supported with scheduled and as needed nebulizer treatments. Prednisone and Mucinex were continued. The patient underwent a right thoracentesis 07/09/18 with removal of 450 mL's. The patient does note improvement in breathing following procedure. Initial evaluation suggest transitive effusion; pleural glucose, protein, LDH, and amylase are all pending. These are send out labs and the results are not expected back for an additional 3-4 days. At time of discharge, the patient is in stable condition, maintaining oxygen saturations on supplemental oxygen via nasal cannula 2 L/min. The patient reports that she is breathing easily and denies dyspnea, orthopnea, and productive cough. She is looking forward to being discharged back to [facility] and remains hopeful that she will proceed from there to [place] to live with her daughter (arrangements ongoing; per family advise against air travel). (2) COPD exacerbation Is this a current diagnosis for this admission?: Yes Summary: Resolved; management as above. (3) Pleural effusion, bilateral Is this a current diagnosis for this admission?: Yes Summary: Likely reactionary to recent acute respiratory failure due to right lower lobe pneumonia. Initial evaluation suggest transudative effusion; pleural glucose, protein, LDH , and amylase are pending. (4) Renal cell carcinoma Is this a current diagnosis for this admission?: Yes Summary: A 2 cm right renal mass incidentally found on CT of the chest and abdomen. Concerning for renal cell carcinoma. Oncology, Dr. Montero, was consulted; recommends outpatient follow-up for further imaging. (5) Thrombocytopenia Is this a current diagnosis for this admission?: Yes Summary: Oncology/hematology,, Dr. Montero, was consulted. There was cytopenia is likely myelosuppression from multiple recent acute illnesses. Platelets are overall stable; 102--> 83--> 84--> 91. No evidence of active bleeding at this time. Recommend follow-up appointment with Dr. Montero within the next 2-4 weeks for monitoring. (6) Hypokalemia Is this a current diagnosis for this admission?: Yes Summary: Replete (7) Type 2 diabetes mellitus Is this a current diagnosis for this admission?: Yes Summary: Well-controlled. (8) Hypothyroid Is this a current diagnosis for this admission?: Yes Summary: Home dose levothyroxine was continued. 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 During this, as well as her last admission, she was less symptomatic with close attention to her respiratory status and utilization of BiPAP nightly. Avoid benzodiazepines, as able, due to risk for respiratory depression. - Additional Information Resuscitation Status: Full Code Discharge Diet: Cardiac, Diabetic Discharge Activity: Activity As Tolerated, Balance Activity w/Rest, Slowly Increase Activity, Weigh Daily Prescriptions: Nystatin [Mycostatin Topical Powder 15 gm] 1 applic TP BID #1 bottle Prednisone [Deltasone 20 mg Tablet] 60 mg PO [id number] 3 Days tablet Home Medications: Albuterol Sulfate [Ventolin 0.083% Neb 2.5 mg/3 ml Ampul] 1 vial NEB RTQ6 Fluticasone Propionate [Flonase Nasal [place] 50 Mcg/[place] 16 gm] 2 sprays NASL Q12 07/08/18 Guaifenesin [Mucinex] 600 mg PO Q12 07/08/18 Ipratropium [place] [Atrovent 0.02% Neb 0.5 mg/2.5 ml Ampul] 0.5 mg NEB RTQ8 04/17 Levalbuterol HCl [Xopenex Neb 1.25 mg/3 ml Ampul] 1.25 mg NEB RTQ4HP PRN Levalbuterol HCl [Xopenex Neb 1.25 mg/3 ml Ampul] 1.25 mg NEB RTQ8 07/08/18 Levothyroxine Sodium [Synthroid 0.112 mg Tablet] 112 mcg PO Q6AM 07/08/18 Menthol/Camphor [Sarna Anti-Itch Lotion] 1 applic TP TID 07/08/18 Metformin HCl [Glucophage 500 mg Tablet] 500 mg PO BID 07/08/18 Multivitamin with Iron [Multivitamins with Iron] 2 each PO DAILY 07/08/18 Olopatadine HCl [Patanol 0.1% Oph Soln 5 Ml Bottle] 1 drop OU BID 07/08/18 Pantoprazole Sodium [Protonix] 40 mg PO DAILY 07/08/18 Tiotropium [place] [Spiriva Handihaler 5 Cap/Kit (18 Mcg/Cap)] 1 cap IH DAILY Acetaminophen [Tylenol 325 mg Tablet] 325 mg PO Q4HP PRN tablet 07/10/18 Fluticasone Propionate [Flonase Nasal [place] 50 Mcg/[place] 16 gm] 2 spray NASL Q12 spray.pump 07/10/18 Ipratropium [place] [Atrovent 0.02% Neb 0.5 mg/2.5 ml Ampul] 0.5 mg NEB RTQ8 vial.neb 07/10/18 Levalbuterol HCl [Xopenex Neb 1.25 mg/3 ml Ampul] 1.25 mg NEB RTQ4HP PRN vial.neb 07/10/18 Levalbuterol HCl [Xopenex Neb 1.25 mg/3 ml Ampul] 1.25 mg NEB RTQ8 vial.neb 06/17 Levothyroxine Sodium [Synthroid 0.112 mg Tablet] 0.112 mg PO Q6AM tablet Nystatin [Mycostatin Topical Powder 15 gm] 1 applic TP BID #1 bottle 07/10/18 Olopatadine HCl [Patanol 0.1% Oph Soln 5 ml] 1 drop OU BID bottle 07/10/18 Prednisone [Deltasone 20 mg Tablet] 60 mg PO WBRKFST 3 Days tablet 07/10/18 History of Present Illness Admission Date/PCP: 07/07/18 19:32 BAKARI VELARDE MD History of Present Illness: Per H&P by Dr. Contreras: TRENTON MCCOY is a 72 [facility] with a remote past medical history lung cancer but current history of diabetes, hypertension, obstructive sleep apnea, oxygen and prednisone dependent COPD, recurrent ESBL E. coli urine, morbid obesity, dementia and debility. She is referred to the emergency room for shortness of breath and found to have anemia, thrombocytopenia, 2 cm right-sided renal mass and large bilateral pleural effusions. She started on oxygen and referred to the hospitalist for admission. She is found to be delirious and unable to provide history of the present illness. Physical Exam Vital Signs: Temp Pulse Resp BP Pulse Ox 98.4 F 93 18 128/74 H 95 07/10/18 09:04 07/10/18 09:04 07/10/18 09:04 07/10/18 09:04 07/10/18 09:04 Intake & Output 07/09/18 07/10/18 07/11/18 06:59 06:59 06:59 Intake Total 474 872 Output Total 420 575 Balance 54 297 Weight 81.9 kg 84.8 kg General appearance: PRESENT: no acute distress, cooperative, well-developed, well-nourished - Overweight Head exam: PRESENT: atraumatic, normocephalic Eye exam: PRESENT: conjunctiva pink, EOMI, PERRLA. ABSENT: scleral icterus Ear exam: PRESENT: normal external ear exam Mouth exam: PRESENT: moist, tongue midline Neck exam: ABSENT: carotid bruit, JVD, lymphadenopathy, thyromegaly Respiratory exam: PRESENT: prolonged expiratory phas, rhonchi - Right lower field, symmetrical, unlabored, wheezes - Right lower field, other - Supplemental oxygen via nasal cannula 2 L/min. ABSENT: rales Cardiovascular exam: PRESENT: RRR, +S1, +S2. ABSENT: diastolic murmur, rubs, systolic murmur Pulses: PRESENT: normal dorsalis pedis pul Vascular exam: PRESENT: normal capillary refill GI/Abdominal exam: PRESENT: normal bowel sounds, soft. ABSENT: distended, guarding, mass, organolmegaly, rebound, tenderness Rectal exam: PRESENT: deferred Extremities exam: PRESENT: full ROM. ABSENT: calf tenderness, clubbing, pedal edema Neurological exam: PRESENT: alert, awake, oriented to person, oriented to place , oriented to time - Does not know year, does know President, oriented to situation, CN II-XII grossly intact. ABSENT: motor sensory deficit Psychiatric exam: PRESENT: appropriate affect, normal mood. ABSENT: homicidal ideation, suicidal ideation Skin exam: PRESENT: dry, intact, warm. ABSENT: cyanosis, rash Results Laboratory Results: 07/10/18 05:02 07/10/18 05:02 07/09/18 07/10/18 07/10/18 13:41 05:02 05:02 WBC 6.0 RBC 3.03 L Hgb 9.1 L Hct 26.7 L MCV 88 MCH 30.0 MCHC 34.0 RDW 15.4 H Plt Count 91 L Sodium 142.5 Potassium 3.9 Chloride 103 Carbon Dioxide 35 H Anion Gap 5 BUN 18 Creatinine 0.89 Est GFR ( Amer) > 60 Est GFR (Non-Af Amer) > 60 Glucose 119 H Calcium 8.6 Fluid Type PLEURAL Fluid Source LUNG Fluid Color YELLOW Fluid Appearance CLEAR Fluid Viscosity LIQUID Fluid WBC 75 Fluid RBC 16 Impressions: Chest/Abdomen CTA 07/07/18 17:50 IMPRESSION: No pulmonary emboli. Moderate to large bilateral pleural effusions right greater than left. On the right side extension to the level of the hilum with there is dense consolidation and atelectasis but no definitive mass lesion. 2 cm solid mass arising from the right kidney. Suspicious for renal cell carcinoma. Chest X-Ray 07/09/18 00:00 IMPRESSION: No pneumothorax 2 hours post right diagnostic and therapeutic thoracentesis. Thoracentesis Ultrasound 07/09/18 16:42 IMPRESSION: SUCCESSFUL THORACENTESIS USING ULTRASOUND GUIDANCE. Transfer Plan - Time Spent with Patient Time spent with patient: Less than 30 Minutes Qualifiers - * PATIENT BEING DISCHARGED WITH ANY OF THE FOLLOWING DIAGNOSIS: No Plan Discharge Plan: Discharge to [facility] where the patient is an established resident. Time Spent: Less than 30 Minutes
[2018-07-10] MEDS: INSULIN LISPRO 100 UNIT/ML 3 ML VIAL SUBCUT PRN (21:58)
[2018-07-11] MEDS ORDERED: ZIPRASIDONE HCL 20 MG CAPSULE PO ONE (00:51)
[2018-07-11] MEDS: ZIPRASIDONE HCL 20 MG CAPSULE PO PRN (00:55)
[2018-07-11] MEDS: LEVOTHYROXINE SODIUM 0.112 MG TABLET PO SCH (05:29)
[2018-07-11] MEDS: LANSOPRAZOLE 30 MG TAB.RAP.DR PO SCH (05:29)
[2018-07-11] MEDS: PREDNISONE 20 MG TABLET PO SCH (08:52)
[2018-07-11] MEDS: TIOTROPIUM BROMIDE DPI 5 CAP/KIT (18 MCG/CAP) IH SCH (09:09)
[2018-07-11] MEDS: OLOPATADINE HCL 0.1% OPH SOLN 5 ML OU SCH ×2 (09:09→17:27)
[2018-07-11] MEDS: FLUTICASONE NASAL SPRAY 50 MCG/SPRY 120 SPRAY/16 GM NASL SCH ×2 (09:10→22:16)
[2018-07-11] MEDS: MULTIVITAMINS W-IRON TABLET, CHEWABLE PO SCH (09:11)
[2018-07-11] MEDS: GUAIFENESIN 600 MG TABLET.SA PO SCH ×2 (09:11→22:16)
[2018-07-11] MEDS: NYSTATIN CREAM 15 GM TP SCH ×2 (09:12→17:27)
[2018-07-11] MEDS: NYSTATIN TOPICAL POWDER 15 GM TP SCH ×2 (09:12→17:27)
[2018-07-11] MEDS: IPRATROPIUM BROMIDE 0.02% NEB 0.5 MG/2.5 ML AMPUL NEB SCH ×2 (09:17→16:09)
[2018-07-11] MEDS: LEVALBUTEROL HCL NEB 1.25 MG/3 ML AMPUL NEB SCH ×2 (09:17→16:09)
[2018-07-11 09:41] LABS: METANEPHRINE URINE 165 ug/L (Undefined); NORMETANEPHRINE URINE 512 ug/L (Undefined)
[2018-07-11 09:42] LABS: METANEPHRINE URINE 24HR 56 ug/24 hr (45-290); NORMETANEPHRINE URINE 24HR 174 ug/24 hr (82-500)
--- NOTE | 2018-07-11 14:15 | PROGRESS NOTE E ---
Progress Note NAME: TRENTON MCCOY : 1945 AGE: 72Y DATE: 07/11/2018 ROOM: 323 SUBJECTIVE: The patient is lying in bed. The patient states that she aches all over. The patient denies any nausea, vomiting, diarrhea. No shortness of breath, dizziness, chest pain. No fevers or chills. The patient has been afebrile, her blood pressure has been in a good range, and the patient does not voice any other concerns at this time. I called and spoke with the patient's niece for whom the patient was supposed to be discharged to live with. She does have small children at home and was unaware of the patient's polymicrobial antibiotic-resistant infections in the past. Given that and the patient's complete care status, which includes being bed bound and need for oxygenation, she felt she could not handle this. She has requested that the patient possibly be sent to a rehab facility either in [place] or [place]. I have made social workers aware. REVIEW OF SYSTEMS: Unobtainable. MEDICATIONS: Reviewed. OBJECTIVE: GENERAL: The patient is a 72-year-old female who is awake, alert. She is oriented to person, place, but not full insight into situation, does not appear to be in any acute distress. VITAL SIGNS: As follows: Temperature is 99, pulse 98, respirations 17, blood pressure 137/77, oxygen saturation 97% on 2 L nasal cannula. SKIN: Warm and dry. No rash, not diaphoretic. HEENT: Pupils equal, round, and reactive to light and accommodation. Conjunctivae pink. There is no evidence of JVP. CARDIOVASCULAR: Heart is regular. No rub. CHEST: Diminished, symmetrical, unlabored. ABDOMEN: Soft, nontender. EXTREMITIES: There is no edema. PSYCHIATRIC: Pleasant affect. DIAGNOSTICS: Lab values are as follows. Hematology obtained on 07/10/2018: WBC is 6.0, hemoglobin is 9.1, hematocrit is 26.9, platelet count is 91,000. Chemistry obtained on 07/10/2018: Sodium is 142, potassium 3.9, chloride 103, carbon dioxide 35, BUN 18, creatinine 0.98, glucose 119, calcium is 8.6. IMPRESSION AND PLAN: 1. CHRONIC OBSTRUCTIVE PULMONARY DISEASE EXACERBATION. Overall continuing to improve. 2. ACUTE ON CHRONIC HYPOXEMIC AND HYPERCAPNIC RESPIRATORY FAILURE. Overall the patient's symptoms do continue to improve. 3. BILATERAL PLEURAL EFFUSIONS, LIKELY REACTIVE. 4. RENAL CELL CARCINOMA POSSIBILITY. The patient did have a 2 cm right renal mass incidentally found on CT scan of the chest and abdomen concerning for renal cell. Dr. Montero was consulted and recommended outpatient followup. 5. THROMBOCYTOPENIA, OVERALL STABLE. 6. HYPOKALEMIA. This has been repleted. 7. DIABETES MELLITUS TYPE 2. This is well controlled. 8. HYPOTHYROIDISM. Continue levothyroxine. 9. SUNDOWNING SYNDROME. The patient does have most likely vascular dementia, currently stable. DISPOSITION: THE PATIENT IS A FULL CODE. Pending the patient's symptomatology and diagnostic findings, the patient can be discharged as soon as a rehab bed is available. Time spent on this followup, including assessment/plan, physical examination, patient education, review of records, is 35 minutes. DICTATING PHYSICIAN: GURPREET MCCLELLAN NP [id number] PHY#: [id number] ID: [id number] JOB#: [id number] ACCT: [id number] cc: >
[2018-07-11] MEDS: INSULIN LISPRO 100 UNIT/ML 3 ML VIAL SUBCUT PRN (22:15)
[2018-07-12] MEDS: LEVALBUTEROL HCL NEB 1.25 MG/3 ML AMPUL NEB SCH ×2 (00:24→08:32)
[2018-07-12] MEDS: IPRATROPIUM BROMIDE 0.02% NEB 0.5 MG/2.5 ML AMPUL NEB SCH ×3 (00:24→17:13)
[2018-07-12] MEDS: LANSOPRAZOLE 30 MG TAB.RAP.DR PO SCH (05:15)
[2018-07-12] MEDS: LEVOTHYROXINE SODIUM 0.112 MG TABLET PO SCH (05:15)
[2018-07-12] MEDS: PREDNISONE 20 MG TABLET PO SCH (08:58)
[2018-07-12] MEDS: MULTIVITAMINS W-IRON TABLET, CHEWABLE PO SCH (09:00)
[2018-07-12] MEDS: FLUTICASONE NASAL SPRAY 50 MCG/SPRY 120 SPRAY/16 GM NASL SCH ×2 (09:01→21:12)
[2018-07-12] MEDS: TIOTROPIUM BROMIDE DPI 5 CAP/KIT (18 MCG/CAP) IH SCH (09:01)
[2018-07-12] MEDS: GUAIFENESIN 600 MG TABLET.SA PO SCH ×2 (09:02→21:12)
[2018-07-12] MEDS: NYSTATIN TOPICAL POWDER 15 GM TP SCH ×2 (09:02→17:27)
[2018-07-12] MEDS: NYSTATIN CREAM 15 GM TP SCH ×2 (09:03→17:27)
[2018-07-12] MEDS: OLOPATADINE HCL 0.1% OPH SOLN 5 ML OU SCH ×2 (09:03→17:27)
--- NOTE | 2018-07-12 14:12 | PROGRESS NOTE E ---
Progress Note NAME: TRENTON MCCOY : 1945 AGE: 72Y DATE: 07/12/2018 ROOM: 323 SUBJECTIVE: The patient is lying in bed. She states that she feels the exact same as she did yesterday. The patient would like to go home; however, she is agreeable to placement in [place] or [place]. The patient denies any nausea, vomiting. No diarrhea, shortness of breath, dizziness, chest pain. No fevers, chills. The patient has been afebrile. Blood pressure has been in a good range. The patient does not voice any other concerns at this time. REVIEW OF SYSTEMS: Rest of review of systems is negative. MEDICATIONS: Medications have been reviewed. OBJECTIVE: GENERAL: The patient is a 72-year-old female who is awake, alert, and oriented to person, place, time, and situation. She is verbal, conversational, does not appear to be in acute distress. VITAL SIGNS: Temperature is 97.1, pulse 94, respirations 14, blood pressure is 133/77, oxygen saturation is 100% on 2 L nasal cannula. SKIN: Warm and dry. No rash. Not diaphoretic. HEENT: Pupils equal, round, and reactive to light and accommodation. Conjunctiva is pink. There is no evidence of JVP. CARDIOVASCULAR SYSTEM: Heart is regular. There is no murmur or rub. CHEST: Clear, symmetrical, unlabored. ABDOMEN: Nondistended. Bowel sounds present. EXTREMITIES: No clubbing, cyanosis, edema. PSYCHIATRIC: The patient is easily agitated. DIAGNOSTICS: Lab values are as follows: Hematology obtained on 07/10/2018: WBCs are 6.0, hemoglobin is 9.1, hematocrit is 26.1, platelet count is 91,000. Chemistry obtained on 07/10/2018: Sodium is 142, potassium 3.9, chloride is 103, carbon dioxide 35, BUN 18, creatinine is 0.89, glucose is 119, calcium is 8.6. IMPRESSION AND PLAN: 1. CHRONIC OBSTRUCTIVE PULMONARY DISEASE EXACERBATION. Appears to have resolved. 2. ACUTE ON CHRONIC HYPOXEMIC AND HYPERCAPNIC RESPIRATORY FAILURE. Continues to improve. 3. BILATERAL PLEURAL EFFUSIONS, LIKELY REACTIVE. 4. POSSIBLE RENAL CELL CARCINOMA. The patient is not currently seeking treatment. She is to follow up outpatient with Dr. Montero. 5. THROMBOCYTOPENIA, OVERALL STABLE. 6. HYPOKALEMIA. This has been repleted. 7. DIABETES MELLITUS TYPE 2. The patient is well controlled. 8. HYPOTHYROIDISM. Continue levothyroxine. 9. SUNDOWNING SYNDROME, MOST LIKELY VASCULAR DEMENTIA, CURRENTLY STABLE. DISPOSITION: The patient is a FULL CODE. Pending patient's symptomatology and diagnostic findings, will re-evaluate in the a.m. Time spent on this followup including assessment, plan, physical examination, patient education, and review of records is 20 minutes. DICTATING PHYSICIAN: GURPREET MCCLELLAN NP [id number] PHY#: [id number] ID: [id number] JOB#: [id number] ACCT: [id number] cc: >
[2018-07-12] MEDS: INSULIN LISPRO 100 UNIT/ML 3 ML VIAL SUBCUT PRN ×2 (17:26→21:15)
[2018-07-13] MEDS: IPRATROPIUM BROMIDE 0.02% NEB 0.5 MG/2.5 ML AMPUL NEB SCH ×3 (00:57→16:27)
[2018-07-13] MEDS: LANSOPRAZOLE 30 MG TAB.RAP.DR PO SCH (05:09)
[2018-07-13] MEDS: LEVOTHYROXINE SODIUM 0.112 MG TABLET PO SCH (05:09)
[2018-07-13] MEDS: PREDNISONE 20 MG TABLET PO SCH (10:03)
[2018-07-13] MEDS: MULTIVITAMINS W-IRON TABLET, CHEWABLE PO SCH (10:05)
[2018-07-13] MEDS: GUAIFENESIN 600 MG TABLET.SA PO SCH ×2 (10:05→21:37)
[2018-07-13] MEDS: FLUTICASONE NASAL SPRAY 50 MCG/SPRY 120 SPRAY/16 GM NASL SCH ×2 (10:05→21:35)
[2018-07-13] MEDS: NYSTATIN TOPICAL POWDER 15 GM TP SCH ×2 (10:06→17:46)
[2018-07-13] MEDS: NYSTATIN CREAM 15 GM TP SCH ×2 (10:06→17:46)
[2018-07-13] MEDS: OLOPATADINE HCL 0.1% OPH SOLN 5 ML OU SCH ×2 (10:07→17:45)
[2018-07-13] MEDS: TIOTROPIUM BROMIDE DPI 5 CAP/KIT (18 MCG/CAP) IH SCH (10:51)
[2018-07-13] MEDS: INSULIN LISPRO 100 UNIT/ML 3 ML VIAL SUBCUT PRN ×3 (13:37→21:34)
[2018-07-13] MEDS: ACETAMINOPHEN 325 MG TABLET PO PRN (14:04)
--- NOTE | 2018-07-13 14:47 | PROGRESS NOTE E ---
Progress Note NAME: TRENTON MCCOY : 1945 AGE: 72Y DATE: 07/13/2018 ROOM: 323 SUBJECTIVE: The patient is currently lying in bed. The patient states that she feels okay today. The patient is a little confused, but she is feeding herself breakfast. The patient denies any nausea, vomiting, diarrhea. No shortness of breath, dizziness, chest pain. No fevers or chills. The patient has been afebrile, blood pressure has been in a good range, and the patient does not voice any other concerns at this time. REVIEW OF SYSTEMS: The rest of the review of systems is unobtainable. MEDICATIONS: Medications have been reviewed. OBJECTIVE: GENERAL: The patient is a 72-year-old female who is awake, alert, and oriented to person, place, time, and situation. She is verbal, conversational, does not appear to be in any acute distress. VITAL SIGNS: As follows: Temperature is 98.1, pulse 95, respirations 18, blood pressure is 138/65, oxygen saturation is 98% on 2 L nasal cannula. SKIN: Warm and dry. No rash, not diaphoretic. HEENT: Pupils are reactive. No evidence of JVP. CARDIOVASCULAR: Heart is regular. No murmur or rub. CHEST: The patient does have some coarse lung sounds. ABDOMEN: Obese, soft. EXTREMITIES: There is no edema. PSYCHIATRIC: The patient is at her baseline. DIAGNOSTICS: Lab values are as follows. Hematology obtained on 07/10/2018: WBCs are 3.0, hemoglobin is 9.1, hematocrit is 26.7, platelet count is 91,000. Chemistry obtained on 07/10/2018: Sodium is 142, potassium 3.9, chloride 103, carbon dioxide 25, BUN 18, creatinine 0.89, glucose 119, calcium is 8.6. IMPRESSION AND PLAN: 1. CHRONIC OBSTRUCTIVE PULMONARY DISEASE EXACERBATION. The patient appears to have resolved. 2. ACUTE ON CHRONIC HYPOXEMIC AND HYPERCAPNIC RESPIRATORY FAILURE. The patient continues to improve. 3. POSSIBLE RENAL CELL CARCINOMA. The patient is not currently seeking treatment. She is followed outpatient by Dr. Montero. 4. THROMBOCYTOPENIA, OVERALL STABLE. 5. HYPOKALEMIA. This has been repleted. 6. DIABETES MELLITUS TYPE 2. The patient is well controlled. 7. HYPOTHYROIDISM. Continue levothyroxine. 8. SUNDOWNING SYNDROME, MOST LIKELY VASCULAR DEMENTIA, CURRENTLY STABLE. DISPOSITION: THE PATIENT IS A FULL CODE. Pending the patient's symptomatology and diagnostic findings, will re-evaluate in the a.m. Time spent on this followup, including assessment/plan, physical examination, patient education, review of records, is 20 minutes. DICTATING PHYSICIAN: GURPREET MCCLELLAN NP [id number] PHY#: [id number] ID: [id number] JOB#: [id number] ACCT: [id number] cc: >
[2018-07-14] MEDS: IPRATROPIUM BROMIDE 0.02% NEB 0.5 MG/2.5 ML AMPUL NEB SCH ×3 (00:36→16:16)
[2018-07-14] MEDS: ZIPRASIDONE HCL 20 MG CAPSULE PO PRN (01:13)
[2018-07-14] MEDS: LEVOTHYROXINE SODIUM 0.112 MG TABLET PO SCH (06:01)
[2018-07-14] MEDS: LANSOPRAZOLE 30 MG TAB.RAP.DR PO SCH (06:02)
[2018-07-14] MEDS ORDERED: HALOPERIDOL 2 MG TABLET PO PRN (06:40)
[2018-07-14 07:07] LABS: HEMOGLOBIN 8.3 g/dL (12.0-15.5); MEAN CORPUSCULAR HEMOGLOBIN 29.6 pg (27.0-33.4); MEAN CORPUSCULAR HGB CONC 33.4 g/dL (32.0-36.0); MEAN CORPUSCULAR VOLUME 89 fl (80-97); RED BLOOD COUNT 2.82 10^6/uL (3.72-5.28); RED CELL DISTRIBUTION WIDTH 15.3 % (11.5-14.0); WHITE BLOOD COUNT 3.1 10^3/uL (4.0-10.5)
[2018-07-14 07:23] LABS: ALANINE AMINOTRANSFERASE 30 U/L (9-52); ALBUMIN 2.5 g/dL (3.5-5.0); ALKALINE PHOSPHATASE 55 U/L (38-126); ASPARTATE AMINO TRANSFERASE 19 U/L (14-36); BILIRUBIN,DIRECT 0.1 mg/dL (0.0-0.4); BILIRUBIN,TOTAL 0.2 mg/dL (0.2-1.3); BLOOD UREA NITROGEN 24 mg/dL (7-20); CALCIUM 8.7 mg/dL (8.4-10.2); GLUCOSE 77 mg/dL (75-110); POTASSIUM 3.1 mmol/L (3.6-5.0); TOTAL PROTEIN 4.4 g/dL (6.3-8.2)
[2018-07-14 07:28] LABS: CARBON DIOXIDE 32 mmol/L (22-30); CHLORIDE 107 mmol/L (98-107); SODIUM 141.6 mmol/L (137-145)
[2018-07-14 07:37] LABS: PLATELET COUNT 55 10^3/uL (150-450)
[2018-07-14 07:41] LABS: CORTISOL FREE URINE 10 ug/L (Undefined)
[2018-07-14 07:43] LABS: ANION GAP 3 (5-19)
[2018-07-14] MEDS: PREDNISONE 20 MG TABLET PO SCH (08:19)
[2018-07-14] MEDS: MULTIVITAMINS W-IRON TABLET, CHEWABLE PO SCH (10:24)
[2018-07-14] MEDS: TIOTROPIUM BROMIDE DPI 5 CAP/KIT (18 MCG/CAP) IH SCH (10:24)
[2018-07-14] MEDS: OLOPATADINE HCL 0.1% OPH SOLN 5 ML OU SCH ×2 (10:24→17:53)
[2018-07-14] MEDS: GUAIFENESIN 600 MG TABLET.SA PO SCH ×2 (10:24→22:45)
[2018-07-14] MEDS: NYSTATIN CREAM 15 GM TP SCH ×2 (10:25→17:52)
[2018-07-14] MEDS: FLUTICASONE NASAL SPRAY 50 MCG/SPRY 120 SPRAY/16 GM NASL SCH ×2 (10:25→22:57)
[2018-07-14] MEDS: NYSTATIN TOPICAL POWDER 15 GM TP SCH ×2 (10:25→17:51)
[2018-07-14] MEDS ORDERED: POTASSIUM CHLORIDE 10 MEQ CAPSULE.ER PO ONE (12:00)
[2018-07-14 16:42] LABS: CORTISOL FREE URINE 24 HR 2 3 ug/24 hr (0-50)
--- NOTE | 2018-07-14 21:02 | PROGRESS NOTE E ---
Progress Note NAME: TRENTON MCCOY : 1945 AGE: 72Y DATE: 07/14/2018 ROOM: 323 SUBJECTIVE: The patient is currently lying in bed. The patient states she feels the same today. The patient denies any nausea, vomiting, diarrhea, although I am unsure of how reliable this is and the patient does not voice any other concerns at this time. BRIEF HISTORY: The patient is a 72-year-old female with a past medical history that includes ESBL, urinary tract infections, and multiple polymicrobial antibiotic resistant organisms. The [facility]. The patient had completed her course through the hospital and had actually been discharged on 07/10/2018, but the patient's daughter, "Trenton," in [place] refused for the patient to return to [facility], therefore, placement is being looked at in other areas, including [place] and in [place] where the patient's granddaughter is. Initially the patient was going to stay with her granddaughter, however, she has 4 small children and given the patient is a total care with polymicrobial antibiotic resistant organisms it is not an ideal situation with 4 children under the age of 5. MEDICATIONS: Reviewed. OBJECTIVE: GENERAL: The patient is a 72-year-old female who is awake, alert. She is oriented to person, time, place, situation, but appears quite delayed. She does not appear to be distressed. VITAL SIGNS: Temperature is 97.7, pulse 87, respirations 20, blood pressure is 122/60, oxygen saturation is 100% on 2 liters nasal cannula. SKIN: Warm and dry. No rash. She is not diaphoretic. HEENT: Pupils equal, round, and reactive to light and accommodation. Conjunctivae are pink. No evidence of JVP. CARDIOVASCULAR: Heart is regular. No rub. CHEST: Clear, symmetrical, unlabored. ABDOMEN: Soft, nontender. EXTREMITIES: No clubbing, cyanosis, or edema. PSYCHIATRIC: The patient does have some dementia at baseline. DIAGNOSTICS: Lab values are as follows - Hematology obtained on 07/14/2018; WBC is 30.1, hemoglobin is 8.3, hematocrit is 25.0, platelet count is 55,000. Chemistry obtained on 07/14/2018; sodium is 141, potassium 3.1, chloride 107, carbon dioxide 32, BUN 24, creatinine is 0.73, glucose 77, calcium is 8.7. IMPRESSION AND PLAN: 1. CHRONIC OBSTRUCTIVE PULMONARY DISEASE EXACERBATION. The patient's symptoms have appeared to have resolved. Continuing to wean the patient from steroids. 2. ACUTE ON CHRONIC HYPOXEMIC AND HYPERCAPNIC RESPIRATORY FAILURE. Improved. 3. POSSIBLE RENAL CELL CARCINOMA. The patient is not currently seeking treatment. She has been followed by Dr. Montero. 4. THROMBOCYTOPENIA. This continues to trend down. We will repeat CBC in the a.m. and defer to hematology. 5. HYPOKALEMIA. This has been repleted. 6. DIABETES MELLITUS TYPE 2. This is well-controlled. 7. HYPOTHYROIDISM. Continue levothyroxine. 8. SUNDOWNING SYNDROME DUE TO HER VASCULAR DEMENTIA. This is at baseline. CODE STATUS: The patient is a full a code. DISPOSITION: Depending on the patient's symptomatology and diagnostic findings will reevaluate in the a.m. TIME SPENT: On this follow up, including assessment and plan, physical examination, patient education, review of records is 15 minutes. DICTATING PHYSICIAN: GURPREET MCCLELLAN NP [id number] PHY#: [id number] ID: [id number] JOB#: [id number] ACCT: [id number] cc: >
[2018-07-15] MEDS: IPRATROPIUM BROMIDE 0.02% NEB 0.5 MG/2.5 ML AMPUL NEB SCH ×3 (00:42→16:34)
[2018-07-15] MEDS: LEVOTHYROXINE SODIUM 0.112 MG TABLET PO SCH (05:57)
[2018-07-15] MEDS: LANSOPRAZOLE 30 MG TAB.RAP.DR PO SCH (05:57)
[2018-07-15 07:48] LABS: BLOOD UREA NITROGEN 30 mg/dL (7-20); CALCIUM 8.8 mg/dL (8.4-10.2); GLUCOSE 99 mg/dL (75-110); POTASSIUM 3.3 mmol/L (3.6-5.0)
[2018-07-15 07:53] LABS: CARBON DIOXIDE 34 mmol/L (22-30); CHLORIDE 108 mmol/L (98-107); SODIUM 142.7 mmol/L (137-145)
[2018-07-15 08:01] LABS: ANION GAP 1 (5-19)
[2018-07-15] MEDS: GUAIFENESIN 600 MG TABLET.SA PO SCH ×2 (09:05→21:04)
[2018-07-15] MEDS: MULTIVITAMINS W-IRON TABLET, CHEWABLE PO SCH (09:05)
[2018-07-15] MEDS: PREDNISONE 20 MG TABLET PO SCH (09:05)
[2018-07-15] MEDS: OLOPATADINE HCL 0.1% OPH SOLN 5 ML OU SCH ×2 (09:05→17:06)
[2018-07-15] MEDS: FLUTICASONE NASAL SPRAY 50 MCG/SPRY 120 SPRAY/16 GM NASL SCH ×2 (09:05→21:04)
[2018-07-15] MEDS: TIOTROPIUM BROMIDE DPI 5 CAP/KIT (18 MCG/CAP) IH SCH (09:06)
[2018-07-15] MEDS: NYSTATIN TOPICAL POWDER 15 GM TP SCH (09:06)
[2018-07-15] MEDS: NYSTATIN CREAM 15 GM TP SCH (09:08)
[2018-07-15 09:23] LABS: ABSOLUTE EOSINOPHILS # (AUTO) 0.1 10^3/uL (0.0-0.6); ABSOLUTE LYMPHOCYTES (AUTO) 0.8 10^3/uL (0.5-4.7); ABSOLUTE MONOCYTES (AUTO) 0.4 10^3/uL (0.1-1.4); ABSOLUTE NEUT (AUTO) 2.5 10^3/uL (1.7-8.2); BASOPHILS % (AUTO) 0.3 % (0-2); EOSINOPHILS % (AUTO) 3.7 % (0-6); HEMATOCRIT 28.7 % (36.0-47.0); HEMOGLOBIN 9.7 g/dL (12.0-15.5); LYMPHOCYTES % (AUTO) 20.2 % (13-45); MEAN CORPUSCULAR HEMOGLOBIN 29.9 pg (27.0-33.4); MEAN CORPUSCULAR HGB CONC 33.9 g/dL (32.0-36.0); MEAN CORPUSCULAR VOLUME 88 fl (80-97); MONOCYTES % (AUTO) 10.4 % (3-13); RED BLOOD COUNT 3.25 10^6/uL (3.72-5.28); RED CELL DISTRIBUTION WIDTH 15.8 % (11.5-14.0); SEGMENTED NEUTROPHILS % (AUTO) 65.4 % (42-78); TOTAL CELLS COUNTED % (AUTO) 100 %; WHITE BLOOD COUNT 3.8 10^3/uL (4.0-10.5)
[2018-07-15 09:24] LABS: PLATELET COUNT 155 10^3/uL (150-450)
--- NOTE | 2018-07-15 17:29 | PDOC PROGRESS REPORT ---
Subjective Progress Note for:: 07/15/18 Subjective:: No adverse events overnight. She has a history of C. difficile and had a negative C. difficile assay a few days ago but she seems to still be having some diarrhea. Reason For Visit: RENAL MASS, PLEURAL EFF Physical Exam Vital Signs: Temp Pulse Resp BP Pulse Ox 98.3 F 92 20 141/73 H 98 07/15/18 16:00 07/15/18 16:00 07/15/18 16:00 07/15/18 16:00 07/15/18 16:00 Intake & Output 07/14/18 07/15/18 07/16/18 06:59 06:59 06:59 Intake Total 800 597 694 Output Total 1 Balance 800 597 693 Weight 84.2 kg 82.1 kg General appearance: PRESENT: no acute distress, cooperative, disheveled, obese Respiratory exam: PRESENT: clear to auscultation jeff, symmetrical, unlabored. ABSENT: accessory muscle use, rales, rhonchi, tachypnea, wheezes Cardiovascular exam: PRESENT: RRR, +S1, +S2 Vascular exam: PRESENT: normal capillary refill GI/Abdominal exam: PRESENT: normal bowel sounds, soft. ABSENT: distended, guarding, rebound, tenderness Extremities exam: ABSENT: clubbing, pedal edema Musculoskeletal exam: PRESENT: normal inspection. ABSENT: deformity Neurological exam: PRESENT: alert, awake, oriented to person, oriented to place Psychiatric exam: PRESENT: appropriate affect Skin exam: PRESENT: dry, warm Results Laboratory Results: 07/15/18 09:08 07/15/18 07:16 07/15/18 07/15/18 07/15/18 07:16 07:16 09:08 WBC Cancelled 3.8 L RBC Cancelled 3.25 L Hgb Cancelled 9.7 L Hct Cancelled 28.7 L MCV Cancelled 88 MCH Cancelled 29.9 MCHC Cancelled 33.9 RDW Cancelled 15.8 H Plt Count Cancelled 155 D Seg Neutrophils % Cancelled 65.4 Lymphocytes % Cancelled 20.2 Monocytes % Cancelled 10.4 Eosinophils % Cancelled 3.7 Basophils % Cancelled 0.3 Absolute Neutrophils Cancelled 2.5 Absolute Lymphocytes Cancelled 0.8 Absolute Monocytes Cancelled 0.4 Absolute Eosinophils Cancelled 0.1 Absolute Basophils Cancelled 0.0 Sodium 142.7 Potassium 3.3 L Chloride 108 H Carbon Dioxide 34 H Anion Gap 1 L BUN 30 H Creatinine 0.84 Est GFR ( Amer) > 60 Est GFR (Non-Af Amer) > 60 Glucose 99 Calcium 8.8 Magnesium 1.8 Impressions: Chest/Abdomen CTA 07/07/18 17:50 IMPRESSION: No pulmonary emboli. Moderate to large bilateral pleural effusions right greater than left. On the right side extension to the level of the hilum with there is dense consolidation and atelectasis but no definitive mass lesion. 2 cm solid mass arising from the right kidney. Suspicious for renal cell carcinoma. Chest X-Ray 07/09/18 00:00 IMPRESSION: No pneumothorax 2 hours post right diagnostic and therapeutic thoracentesis. Thoracentesis Ultrasound 07/09/18 16:42 IMPRESSION: SUCCESSFUL THORACENTESIS USING ULTRASOUND GUIDANCE. Assessment & Plan - Diagnosis (1) Acute on chronic respiratory failure with hypoxia and hypercapnia Is this a current diagnosis for this admission?: Yes Plan: Resolved (2) COPD exacerbation Is this a current diagnosis for this admission?: Yes Plan: Resolved. Weaning steroids (3) Renal cell carcinoma Qualifiers: Laterality: right Qualified Code(s): C64.1 - Malignant neoplasm of right kidney, except renal pelvis Is this a current diagnosis for this admission?: Yes Plan: She does not want any workup (4) Dementia Qualifiers: Dementia type: unspecified type Dementia behavioral disturbance: without behavioral disturbance Qualified Code(s): F03.90 - Unspecified dementia without behavioral disturbance Is this a current diagnosis for this admission?: Yes Plan: Mental status is at baseline - Time Time Spent with patient: 15-24 minutes
[2018-07-15] MEDS ORDERED: POTASSIUM CHLORIDE 10 MEQ CAPSULE.ER PO ONE (18:00)
[2018-07-15] MEDS ORDERED: HALOPERIDOL 2 MG TABLET ONE (20:52)
[2018-07-16] MEDS: IPRATROPIUM BROMIDE 0.02% NEB 0.5 MG/2.5 ML AMPUL NEB SCH ×3 (00:28→16:15)
[2018-07-16] MEDS: LEVOTHYROXINE SODIUM 0.112 MG TABLET PO SCH (05:13)
[2018-07-16] MEDS: LANSOPRAZOLE 30 MG TAB.RAP.DR PO SCH (05:13)
[2018-07-16] MEDS: PREDNISONE 20 MG TABLET PO SCH (10:24)
[2018-07-16] MEDS: FLUTICASONE NASAL SPRAY 50 MCG/SPRY 120 SPRAY/16 GM NASL SCH ×2 (10:25→23:08)
[2018-07-16] MEDS: GUAIFENESIN 600 MG TABLET.SA PO SCH ×2 (10:25→23:07)
[2018-07-16] MEDS: MULTIVITAMINS W-IRON TABLET, CHEWABLE PO SCH (10:27)
[2018-07-16] MEDS: OLOPATADINE HCL 0.1% OPH SOLN 5 ML OU SCH ×2 (10:27→18:14)
[2018-07-16] MEDS: TIOTROPIUM BROMIDE DPI 5 CAP/KIT (18 MCG/CAP) IH SCH (10:29)
--- NOTE | 2018-07-16 18:28 | PDOC PROGRESS REPORT ---
Subjective Progress Note for:: 07/16/18 Subjective:: No adverse events overnight. She has not had any episodes of diarrhea today. She is eating a regular consistency diet without any difficulty. no new complaints. Reason For Visit: RENAL MASS, PLEURAL EFF Physical Exam Vital Signs: Temp Pulse Resp BP Pulse Ox 98.0 F 101 H 20 124/99 H 98 07/16/18 16:54 07/16/18 16:54 07/16/18 16:54 07/16/18 16:54 07/16/18 16:54 Intake & Output 07/15/18 07/16/18 07/17/18 06:59 06:59 06:59 Intake Total 597 1234 300 Output Total 1 Balance 597 1233 300 Weight 82.1 kg 82.4 kg General appearance: PRESENT: no acute distress, cooperative, disheveled, obese Respiratory exam: PRESENT: clear to auscultation jeff, symmetrical, unlabored. ABSENT: accessory muscle use, rales, rhonchi, tachypnea, wheezes Cardiovascular exam: PRESENT: RRR, +S1, +S2 Vascular exam: PRESENT: normal capillary refill GI/Abdominal exam: PRESENT: normal bowel sounds, soft. ABSENT: distended, guarding, rebound, tenderness Extremities exam: ABSENT: clubbing, pedal edema Musculoskeletal exam: PRESENT: normal inspection. ABSENT: deformity Neurological exam: PRESENT: alert, awake, oriented to person, oriented to place Psychiatric exam: PRESENT: appropriate affect Skin exam: PRESENT: dry, warm Results Laboratory Results: 07/15/18 09:08 07/15/18 07:16 Impressions: Chest/Abdomen CTA 07/07/18 17:50 IMPRESSION: No pulmonary emboli. Moderate to large bilateral pleural effusions right greater than left. On the right side extension to the level of the hilum with there is dense consolidation and atelectasis but no definitive mass lesion. 2 cm solid mass arising from the right kidney. Suspicious for renal cell carcinoma. Chest X-Ray 07/09/18 00:00 IMPRESSION: No pneumothorax 2 hours post right diagnostic and therapeutic thoracentesis. Thoracentesis Ultrasound 07/09/18 16:42 IMPRESSION: SUCCESSFUL THORACENTESIS USING ULTRASOUND GUIDANCE. Assessment & Plan - Diagnosis (1) Acute on chronic respiratory failure with hypoxia and hypercapnia Is this a current diagnosis for this admission?: Yes Plan: Resolved (2) COPD exacerbation Is this a current diagnosis for this admission?: Yes Plan: Resolved. Weaning steroids (3) Renal cell carcinoma Qualifiers: Laterality: right Qualified Code(s): C64.1 - Malignant neoplasm of right kidney, except renal pelvis Is this a current diagnosis for this admission?: Yes Plan: She does not want any workup (4) Dementia Qualifiers: Dementia type: unspecified type Dementia behavioral disturbance: without behavioral disturbance Qualified Code(s): F03.90 - Unspecified dementia without behavioral disturbance Is this a current diagnosis for this admission?: Yes Plan: Mental status is at baseline. Her daughter wants her placed in a facility in [place] because there is family nearby. Were waiting on bed availability. - Time Time Spent with patient: 15-24 minutes
[2018-07-17] MEDS: IPRATROPIUM BROMIDE 0.02% NEB 0.5 MG/2.5 ML AMPUL NEB SCH ×3 (00:25→16:53)
[2018-07-17] MEDS: LANSOPRAZOLE 30 MG TAB.RAP.DR PO SCH (06:12)
[2018-07-17] MEDS: LEVOTHYROXINE SODIUM 0.112 MG TABLET PO SCH (06:12)
[2018-07-17] MEDS: PREDNISONE 20 MG TABLET PO SCH (08:35)
[2018-07-17] MEDS: MULTIVITAMINS W-IRON TABLET, CHEWABLE PO SCH (10:41)
[2018-07-17] MEDS: GUAIFENESIN 600 MG TABLET.SA PO SCH ×2 (10:41→22:10)
[2018-07-17] MEDS: FLUTICASONE NASAL SPRAY 50 MCG/SPRY 120 SPRAY/16 GM NASL SCH ×2 (10:41→22:10)
[2018-07-17] MEDS: OLOPATADINE HCL 0.1% OPH SOLN 5 ML OU SCH ×2 (10:41→17:30)
[2018-07-17] MEDS: TIOTROPIUM BROMIDE DPI 5 CAP/KIT (18 MCG/CAP) IH SCH (10:41)
--- NOTE | 2018-07-17 19:50 | Progress Note ---
Provider Note Provider Note: This is an addendum to the discharge summary dictated by Chika CORONADO on 07/10/2018. There have been no changes to her plan of care in the interim. Her fluid results came back on her pleural fluid and it was indeed a transudate. Multiple cultures were all negative. She did have a few episodes of diarrhea and giving her history of Clostridium difficile infection, we decided to test her for C. difficile, and that test was negative. She has not had any diarrhea in the last couple of days. She still has a bed at [facility] which is the facility she came here from initially. As we no longer had any active problems to treat, and her clinical condition was stable and she had a facility to return to, she was deemed ready for discharge in order was placed. I was informed that her daughter in [place] had decided to appeal the discharge. That process is now ongoing.
[2018-07-18] MEDS: IPRATROPIUM BROMIDE 0.02% NEB 0.5 MG/2.5 ML AMPUL NEB SCH ×3 (00:28→17:42)
[2018-07-18] MEDS: LANSOPRAZOLE 30 MG TAB.RAP.DR PO SCH (06:50)
[2018-07-18] MEDS: LEVOTHYROXINE SODIUM 0.112 MG TABLET PO SCH (06:50)
[2018-07-18] MEDS: LEVALBUTEROL HCL NEB 1.25 MG/3 ML AMPUL NEB PRN ×2 (08:14→17:42)
[2018-07-18] MEDS: GUAIFENESIN 600 MG TABLET.SA PO SCH ×2 (10:55→21:03)
[2018-07-18] MEDS: PREDNISONE 20 MG TABLET PO SCH (10:55)
[2018-07-18] MEDS: FLUTICASONE NASAL SPRAY 50 MCG/SPRY 120 SPRAY/16 GM NASL SCH ×2 (10:55→21:03)
[2018-07-18] MEDS: MULTIVITAMINS W-IRON TABLET, CHEWABLE PO SCH (10:58)
[2018-07-18] MEDS: OLOPATADINE HCL 0.1% OPH SOLN 5 ML OU SCH ×2 (10:58→19:47)
[2018-07-18] MEDS: TIOTROPIUM BROMIDE DPI 5 CAP/KIT (18 MCG/CAP) IH SCH (10:59)
[2018-07-18] MEDS: POTASSIUM CHLORIDE 10 MEQ CAPSULE.ER PO SCH (15:48)
--- NOTE | 2018-07-18 17:19 | RADIOLOGY REPORT (SQ) ---
EXAM DESCRIPTION: Chest one view COMPLETED DATE/TIME: 07/18/2018 REASON FOR STUDY: Productive cough, rhonchi. COMPARISON: 07/09/2018 EXAM PARAMETERS: NUMBER OF VIEWS: One view TECHNIQUE: Single frontal radiograph of the chest. RADIATION DOSE: N/A LIMITATIONS: None. FINDINGS: LUNGS AND PLEURA: Minimal left pleural effusion. MEDIASTINUM AND HILAR STRUCTURES: There appears to be scarring in the right hilum. HEART AND VASCULAR STRUCTURES: Heart normal in size. Normal vasculature. BONES: No acute findings. HARDWARE: None. OTHER: No other significant finding. IMPRESSION: There appears to be scarring in the right hilum. There is a minimal left pleural effusi on. No new finding is seen. TECHNICAL DOCUMENTATION: JOB ID: [id number] [employer]- All Rights Reserved Reading location - IP/workstation name: [email or web address]
--- NOTE | 2018-07-18 22:39 | PDOC PROGRESS REPORT ---
Subjective Progress Note for:: 07/18/18 Subjective:: The patient was somewhat somnolent today. There was limited interaction during this encounter. There was a glob of sweeney colored mucus resting on the blanket in front of her mouth. Reason For Visit: RENAL MASS, PLEURAL EFF Physical Exam Vital Signs: Temp Pulse Resp BP Pulse Ox 97.7 F 101 H 18 107/80 100 07/18/18 19:46 07/18/18 19:46 07/18/18 19:46 07/18/18 16:00 07/18/18 19:46 Intake & Output 07/17/18 07/18/18 07/19/18 06:59 06:59 06:59 Intake Total 620 740 240 Balance 620 740 240 Weight 85.4 kg 87.8 kg General appearance: PRESENT: no acute distress, well-developed Respiratory exam: PRESENT: symmetrical, unlabored, other - Congested breath sounds bilaterally. ABSENT: rhonchi, wheezes Cardiovascular exam: PRESENT: RRR, +S1, +S2 GI/Abdominal exam: PRESENT: normal bowel sounds, soft. ABSENT: tenderness Neurological exam: PRESENT: awake. ABSENT: alert Psychiatric exam: PRESENT: flat affect Results Laboratory Results: 07/15/18 09:08 07/15/18 07:16 07/07/18 07/07/18 16:45 18:53 Troponin I 0.035 0.031 NT-Pro-B Natriuret Pep 1850 H Impressions: Chest/Abdomen CTA 07/07/18 17:50 IMPRESSION: No pulmonary emboli. Moderate to large bilateral pleural effusions right greater than left. On the right side extension to the level of the hilum with there is dense consolidation and atelectasis but no definitive mass lesion. 2 cm solid mass arising from the right kidney. Suspicious for renal cell carcinoma. Thoracentesis Ultrasound 07/09/18 16:42 IMPRESSION: SUCCESSFUL THORACENTESIS USING ULTRASOUND GUIDANCE. Chest X-Ray 07/18/18 00:00 IMPRESSION: There appears to be scarring in the right hilum. There is a minimal left pleural effusion. No new finding is seen. Assessment & Plan - Diagnosis (1) Acute on chronic respiratory failure with hypoxia and hypercapnia Is this a current diagnosis for this admission?: Yes Plan: The acute failure has resolved. The patient does have a productive cough. I will check a chest x-ray and I have ordered a sputum culture. (2) COPD exacerbation Is this a current diagnosis for this admission?: Yes Plan: Her COPD appears to be back at baseline. She will likely be able [facility] facility [facility]. - Time Time Spent with patient: 15-24 minutes Anticipated discharge: SNF
[2018-07-19] MEDS: IPRATROPIUM BROMIDE 0.02% NEB 0.5 MG/2.5 ML AMPUL NEB SCH ×3 (00:11→16:32)
[2018-07-19] MEDS: LANSOPRAZOLE 30 MG TAB.RAP.DR PO SCH (05:24)
[2018-07-19] MEDS: LEVOTHYROXINE SODIUM 0.112 MG TABLET PO SCH (05:24)
[2018-07-19] MEDS: LEVALBUTEROL HCL NEB 1.25 MG/3 ML AMPUL NEB PRN ×2 (08:45→16:32)
[2018-07-19] MEDS: PREDNISONE 20 MG TABLET PO SCH (08:59)
--- NOTE | 2018-07-19 10:12 | PDOC TRANSFER SUMMARY ---
Addendum entered and electronically signed by PATSY AYERS NP-C 08/04/18 16:37: Provider Note Provider Note: Addendum to discharge summary dated 07/19/2018: The patient remained in stable condition. Most recent laboratory evaluation on 08/01/18 revealed stable anemia with a hemoglobin of 9.3. ABG demonstrated compensated chronic respiratory acidosis with hypercapnia. Chem-7 was unremarkable. Chest x-ray the same day revealed a stable appearance of the chest without acute processes. Overnight oximetry study was obtained 08/02/18; patient had numerous desaturation events with the lowest being 73% lasting 36 seconds. Her average desaturation event lasted 30 seconds. While awake, the patient's oxygen requirement was wean ed and she is now maintaining oxygen saturations on room air. Oxygen orders were updated; patient requires supplemental oxygen via nasal cannula 2 L/min nightly and while sleeping. Discharge planning worked diligently to arrange for home medical equipment and oxygen which was confirmed to have been delivered to the patient's home today. Transportation was arranged via [facility] ambulance transport. The patient discharged to home into the care of her family members, son Jason, with home health nursing, physical therapy, occupational therapy, and aide services. The patient should follow-up with her primary care provider, Dr. Velarde, within 1 week. She should follow-up with oncology, Dr. Montero, within the next 2-4 weeks. She should follow-up with pulmonology, Dr. Alvarez, as scheduled on September 18. Return to the emergency department as needed for any concerning symptoms. Original Note: General - Admit/Disc Date/PCP Admission Date/Primary Care Provider: 07/07/18 19:32 BAKARI VELARDE MD Discharge Date: 07/19/18 - Discharge Diagnosis (1) Acute on chronic respiratory failure with hypoxia and hypercapnia Is this a current diagnosis for this admission?: Yes Summary: Pleasant 72-year-old female with severe chronic obstructive pulmonary disease. Her breathing has been much better. She still has a productive cough. She states that this is common with her chronic obstructive pulmonary disease. She is already on guaifenesin 600 mg twice daily and if her sputum remains thick consider increasing this dose. She is also already on Spiriva to help decrease secretions. She follows up with Dr. Alvarez and should see him as an outpatient. She has tapered her prednisone down from 60 mg to 30 mg. Consider tapering by 10 mg every 4-5 days. I defer to Dr. Alvarez for any additional directions. (2) COPD exacerbation Is this a current diagnosis for this admission?: Yes Summary: Continue prednisone taper as above. Her productive cough is chronic. She remains afebrile and does not have an elevated white blood cell count and so no antibiotic therapy at this time. (3) Pleural effusion, bilateral Is this a current diagnosis for this admission?: Yes Summary: Thoracentesis was performed. The fluid was clear yellow and suggestive of transudate. - Additional Information Resuscitation Status: Full Code Discharge Diet: Cardiac, Diabetic Discharge Activity: Activity As Tolerated, Balance Activity w/Rest, Slowly Incre ase Activity, Weigh Daily Prescriptions: Nystatin [Mycostatin Topical Powder 15 gm] 1 applic TP BID #1 bottle Prednisone [Deltasone 20 mg Tablet] 60 mg PO WBRKFST 3 Days tablet Home Medications: Albuterol Sulfate [Ventolin 0.083% Neb 2.5 mg/3 mL Ampul] 1 vial NEB RTQ6 07/08/18 Fluticasone Propionate [Flonase Nasal [place] 50 Mcg/Verner 16 gm] 2 sprays NASL Q12 07/08/18 Guaifenesin [Mucinex] 600 mg PO Q12 07/08/18 Ipratropium [place] [Atrovent 0.02% Neb 0.5 mg/2.5 ml Ampul] 0.5 mg NEB RTQ8 07/08/18 Levalbuterol HCl [Xopenex Neb 1.25 mg/3 ml Ampul] 1.25 mg NEB RTQ4HP PRN 07/08/18 Levalbuterol HCl [Xopenex Neb 1.25 mg/3 ml Ampul] 1.25 mg NEB RTQ8 07/08/18 Levothyroxine Sodium [Synthroid 0.112 mg Tablet] 112 mcg PO Q6AM 07/08/18 Menthol/Camphor [Sarna Anti-Itch Lotion] 1 applic TP TID 07/08/18 Metformin HCl [Glucophage 500 mg Tablet] 500 mg PO BID 07/08/18 Multivitamin with Iron [Multivitamins with Iron] 2 each PO DAILY 07/08/18 Olopatadine HCl [Patanol 0.1% Oph Soln 5 ml] 1 drop OU BID 07/08/18 Pantoprazole Sodium [Protonix] 40 mg PO DAILY 07/08/18 Tiotropium [place] [Spiriva Handihaler 5 Cap/Kit (18 Mcg/Cap)] 1 cap IH DAILY 07/08/18 Acetaminophen [Tylenol 325 mg Tablet] 325 mg PO Q4HP PRN tablet 07/10/18 Fluticasone Propionate [Flonase Nasal [place] 50 Mcg/Verner 16 gm] 2 spray NASL Q12 spray.pump 07/10/18 Ipratropium [place] [Atrovent 0.02% Neb 0.5 mg/2.5 ml Ampul] 0.5 mg NEB RTQ8 vial.neb 07/10/18 Levalbuterol HCl [Xopenex Neb 1.25 mg/3 ml Ampul] 1.25 mg NEB RTQ4HP PRN vial.neb 07/10/18 Levalbuterol HCl [Xopenex Neb 1.25 mg/3 ml Ampul] 1.25 mg NEB RTQ8 vial.neb 07/10/18 Levothyroxine Sodium [Synthroid 0.112 mg Tablet] 0.112 mg PO Q6AM tablet 07/10/18 Nystatin [Mycostatin Topical Powder 15 gm] 1 applic TP BID #1 bottle 07/10/18 Olopatadine HCl [Patanol 0.1% Oph Soln 5 ml] 1 drop OU BID bottle 07/10/18 Prednisone [Deltasone 20 mg Tablet] 60 mg PO WBRKFST 3 Days tablet 07/10/18 Insulin Lispro [Humalog Insulin (Lispro) 100 unit/mL] 0 - 12 unit SUBCUT ACP PRN unit 07/19/18 Levalbuterol HCl [Xopenex Neb 1.25 mg/3 ml Ampul] 1.25 mg NEB RTQ6HP PRN vial.neb 07/19/18 Potassium Chloride [Klor-Con 10 Meq Capsule ER] 10 meq PO DAILY capsule.er 07/19/18 Prednisone [Deltasone 20 mg Tablet] 30 mg PO WBRKFST tablet 07/19/18 History of Present Illness Admission Date/PCP: 07/07/18 19:32 BAKARI VELARDE MD Patient complains of: Increased shortness of breath History of Present Illness: TRENTON MCCOY is a 72 year old female who presented 3 weeks ago from the custodial facility. 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 She was found to have bilateral pleural effusions on this admission worsening her shortness of breath. Hospital Course Hospital Course: The patient has had a prolonged hospital course. A new right kidney mass was detected. The patient was seen by Dr. Montero. The lesion will be followed by serial imaging studies. Because of her multiple comorbidities she would not likely be a candidate for surgical or chemotherapeutic intervention. Pleural effusions most likely a transudate. Continue to monitor. No diuretic therapy at this point. If the patient does get increased shortness of breath repeat chest x-ray and check for recurrent effusion. It is not likely it is related to the renal cell carcinoma as microscopy was negative for malignant cells. Her chronic ESBL E. coli presently urinary tract was not treated with antibiotics. The colony count was less than 20,000 colonies per milliliter and this is not a clinically significant infection. Also she did not have a fever or elevated white blood cell count. Severe COPD-the patient does have productive cough but she states that this is chronic and fluctuates with regard to the amount of sputum she coughs up. We will continue current inhaler/nebulizer regimen. Her prednisone is down to 30 mg daily. Consider tapering but will defer to Dr. Alvarez. Physical Exam Vital Signs: Temp Pulse Resp BP Pulse Ox 98.3 F 90 18 107/80 93 07/19/18 07:55 07/19/18 07:55 07/19/18 07:55 07/18/18 16:00 07/19/18 07:55 Intake & Output 07/18/18 07/19/18 07/20/18 06:59 06:59 06:59 Intake Total 740 480 Balance 740 480 Weight 87.8 kg 82.7 kg General appearance: PRESENT: no acute distress, cooperative, well-developed Respiratory exam: PRESENT: symmetrical, unlabored, other - Congested breath sounds bilaterally. Mild.. ABSENT: accessory muscle use, prolonged expiratory phas, rales, rhonchi, wheezes Cardiovascular exam: PRESENT: RRR, +S1, +S2 GI/Abdominal exam: PRESENT: normal bowel sounds, soft. ABSENT: tenderness Neurological exam: PRESENT: alert, awake, oriented to person, oriented to place, oriented to situation - She was able to tell me the custodial facility that she was at prior to this admission. Psychiatric exam: PRESENT: appropriate affect, normal mood. ABSENT: agitated, anxious Skin exam: PRESENT: dry, normal color, warm Results Laboratory Results: 07/15/18 09:08 07/15/18 07:16 07/07/18 07/07/18 16:45 18:53 Troponin I 0.035 0.031 NT-Pro-B Natriuret Pep 1850 H Impressions: Chest/Abdomen CTA 07/07/18 17:50 IMPRESSION: No pulmonary emboli. Moderate to large bilateral pleural effusions right greater than left. On the right side extension to the level of the hilum with there is dense consolidation and atelectasis but no definitive mass lesion. 2 cm solid mass arising from the right kidney. Suspicious for renal cell carcinoma. Thoracentesis Ultrasound 07/09/18 16:42 IMPRESSION: SUCCESSFUL THORACENTESIS USING ULTRASOUND GUIDANCE. Chest X-Ray 07/18/18 00:00 IMPRESSION: There appears to be scarring in the right hilum. There is a minimal left pleural effusion. No new finding is seen. Transfer Plan - Disposition Transfer Plan: The patient will return to [facility]. - Time Spent with Patient Time spent with patient: Greater than 30 Minutes Qualifiers - * PATIENT BEING DISCHARGED WITH ANY OF THE FOLLOWING DIAGNOSIS: No Plan Time Spent: Greater than 30 Minutes
[2018-07-19] MEDS: POTASSIUM CHLORIDE 10 MEQ CAPSULE.ER PO SCH (10:59)
[2018-07-19] MEDS: GUAIFENESIN 600 MG TABLET.SA PO SCH ×2 (10:59→22:21)
[2018-07-19] MEDS: FLUTICASONE NASAL SPRAY 50 MCG/SPRY 120 SPRAY/16 GM NASL SCH ×2 (10:59→22:21)
[2018-07-19] MEDS: MULTIVITAMINS W-IRON TABLET, CHEWABLE PO SCH (11:00)
[2018-07-19] MEDS: OLOPATADINE HCL 0.1% OPH SOLN 5 ML OU SCH ×2 (11:00→17:01)
[2018-07-19] MEDS: TIOTROPIUM BROMIDE DPI 5 CAP/KIT (18 MCG/CAP) IH SCH (11:02)
[2018-07-19] MEDS: HALOPERIDOL 1 MG TABLET PO PRN (17:01)
[2018-07-20] MEDS: IPRATROPIUM BROMIDE 0.02% NEB 0.5 MG/2.5 ML AMPUL NEB SCH ×3 (00:07→17:11)
[2018-07-20] MEDS: LEVOTHYROXINE SODIUM 0.112 MG TABLET PO SCH (05:23)
[2018-07-20] MEDS: LANSOPRAZOLE 30 MG TAB.RAP.DR PO SCH (05:23)
[2018-07-20] MEDS: PREDNISONE 20 MG TABLET PO SCH (09:11)
[2018-07-20] MEDS: MULTIVITAMINS W-IRON TABLET, CHEWABLE PO SCH (09:11)
[2018-07-20] MEDS: OLOPATADINE HCL 0.1% OPH SOLN 5 ML OU SCH ×2 (09:12→17:25)
[2018-07-20] MEDS: FLUTICASONE NASAL SPRAY 50 MCG/SPRY 120 SPRAY/16 GM NASL SCH ×2 (09:12→22:24)
[2018-07-20] MEDS: POTASSIUM CHLORIDE 10 MEQ CAPSULE.ER PO SCH (09:12)
[2018-07-20] MEDS: GUAIFENESIN 600 MG TABLET.SA PO SCH ×2 (09:12→22:24)
[2018-07-20] MEDS: TIOTROPIUM BROMIDE DPI 5 CAP/KIT (18 MCG/CAP) IH SCH (09:12)
[2018-07-20] MEDS: INSULIN LISPRO 100 UNIT/ML 3 ML VIAL SUBCUT PRN ×2 (17:26→22:24)
[2018-07-20] MEDS ORDERED: LOPERAMIDE HCL 2 MG CAPSULE PO PRN (18:31)
--- NOTE | 2018-07-20 18:40 | PDOC PROGRESS REPORT ---
Subjective Progress Note for:: 07/20/18 Subjective:: The patient is having diarrhea. Reason For Visit: RENAL MASS, PLEURAL EFF Physical Exam Vital Signs: Temp Pulse Resp BP Pulse Ox 98.2 F 90 18 126/69 H 99 07/20/18 15:14 07/20/18 17:11 07/20/18 17:11 07/20/18 15:14 07/20/18 17:11 Intake & Output 07/19/18 07/20/18 07/21/18 06:59 06:59 06:59 Intake Total 480 918 266 Balance 480 918 266 Weight 82.7 kg 80.6 kg General appearance: PRESENT: no acute distress, cooperative, other - Sleeping but easily awakened Neck exam: ABSENT: carotid bruit, lymphadenopathy Respiratory exam: PRESENT: symmetrical, unlabored, other - Congested cough. ABSENT: accessory muscle use, rales, rhonchi, wheezes Cardiovascular exam: PRESENT: RRR, +S1, +S2 GI/Abdominal exam: PRESENT: normal bowel sounds, soft. ABSENT: distended, tenderness Extremities exam: PRESENT: pedal edema Neurological exam: PRESENT: awake, oriented to person, oriented to place, oriented to situation, CN II-XII grossly intact. ABSENT: alert - Still slightly sleepy Psychiatric exam: PRESENT: appropriate affect, normal mood. ABSENT: agitated, anxious Focused psych exam: ABSENT: restlessness Results Laboratory Results: 07/15/18 09:08 07/15/18 07:16 07/07/18 07/07/18 16:45 18:53 Troponin I 0.035 0.031 NT-Pro-B Natriuret Pep 1850 H Impressions: Chest/Abdomen CTA 07/07/18 17:50 IMPRESSION: No pulmonary emboli. Moderate to large bilateral pleural effusions right greater than left. On the right side extension to the level of the hilum with there is dense consolidation and atelectasis but no definitive mass lesion. 2 cm solid mass arising from the right kidney. Suspicious for renal cell carcinoma. Thoracentesis Ultrasound 07/09/18 16:42 IMPRESSION: SUCCESSFUL THORACENTESIS USING ULTRASOUND GUIDANCE. Chest X-Ray 07/18/18 00:00 IMPRESSION: There appears to be scarring in the right hilum. There is a minimal left pleural effusion. No new finding is seen. Assessment & Plan - Diagnosis (1) Acute on chronic respiratory failure with hypoxia and hypercapnia Is this a current diagnosis for this admission?: Yes Plan: Patient was saturating greater than 90% 3 L nasal cannula today. She still has congested cough with sputum. I have added scheduled DuoNeb's to try and help mobilize the secretions. (2) COPD exacerbation Is this a current diagnosis for this admission?: Yes Plan: Continue inhaler therapy as above. Slow prednisone taper. (3) Diarrhea Qualifiers: Diarrhea type: unspecified type Qualified Code(s): R19.7 - Diarrhea, unspecified Is this a current diagnosis for this admission?: Yes Plan: Patient was having diarrhea today. A specimen for Clostridium difficile was sent because she has had C. difficile in the past. This was negative. Imodium has been added. (4) Renal cell carcinoma Qualifiers: Laterality: right Qualified Code(s): C64.1 - Malignant neoplasm of right kidney, except renal pelvis Is this a current diagnosis for this admission?: Yes Plan: No active treatment currently. - Time Time Spent with patient: 15-24 minutes Medications reviewed and adjusted accordingly: Yes
[2018-07-20] MEDS: HALOPERIDOL 1 MG TABLET PO PRN (20:15)
[2018-07-20] MEDS: IPRATROPIUM/ALBUTEROL 0.5-2.5 MG/3 ML AMPUL NEB SCH (23:30)
[2018-07-21] MEDS: LEVOTHYROXINE SODIUM 0.112 MG TABLET PO SCH (06:14)
[2018-07-21] MEDS: LANSOPRAZOLE 30 MG TAB.RAP.DR PO SCH (06:14)
[2018-07-21] MEDS: INSULIN LISPRO 100 UNIT/ML 3 ML VIAL SUBCUT PRN ×3 (06:48→22:14)
[2018-07-21] MEDS: PREDNISONE 20 MG TABLET PO SCH (08:03)
[2018-07-21] MEDS: IPRATROPIUM/ALBUTEROL 0.5-2.5 MG/3 ML AMPUL NEB SCH ×2 (09:32→16:17)
[2018-07-21] MEDS: POTASSIUM CHLORIDE 10 MEQ CAPSULE.ER PO SCH ×2 (09:49→17:48)
[2018-07-21] MEDS: TIOTROPIUM BROMIDE DPI 5 CAP/KIT (18 MCG/CAP) IH SCH (09:49)
[2018-07-21] MEDS: GUAIFENESIN 600 MG TABLET.SA PO SCH ×2 (09:49→22:14)
[2018-07-21] MEDS: OLOPATADINE HCL 0.1% OPH SOLN 5 ML OU SCH ×2 (09:49→17:48)
[2018-07-21] MEDS: FLUTICASONE NASAL SPRAY 50 MCG/SPRY 120 SPRAY/16 GM NASL SCH ×2 (09:49→22:14)
[2018-07-21] MEDS: MULTIVITAMINS W-IRON TABLET, CHEWABLE PO SCH (09:49)
--- NOTE | 2018-07-21 16:23 | PDOC DISCHARGE SUMMARY ---
General - Admit/Disc Date/PCP Admission Date/Primary Care Provider: 07/07/18 19:32 BAKARI VELARDE MD Discharge Date: 07/21/18 - Discharge Diagnosis (1) Acute on chronic respiratory failure with hypoxia and hypercapnia Is this a current diagnosis for this admission?: Yes Summary: The patient has a history of chronic obstructive pulmonary disease. She was in a halfway facility and was transferred to [facility] on July 08 for worsening shortness of breath. She did have pleural effusions and underwent thoracentesis that revealed transudate. She received a course of antibiotic therapy. She did receive BiPAP therapy but is now back to oxygen by nasal cannula. She has been on oxygen at home prior to her admission. She is currently on nebulizer therapy and will be discharged home with oxygen. She reports that she always has a productive cough. This is chronic from history of smoking. Her most recent chest x-ray did not show any acute infiltrates and there was only a small pleural effusion remaining. (2) COPD exacerbation Is this a current diagnosis for this admission?: Yes Summary: As above (3) Renal cell carcinoma Is this a current diagnosis for this admission?: Yes Summary: The patient was recently diagnosed with a renal mass. It is felt to be renal cell carcinoma. The patient is not a good candidate for any intervention. Continue outpatient consultation with oncology. (4) Diarrhea Is this a current diagnosis for this admission?: Yes Summary: The patient has a history of Clostridium difficile colitis. She was on antibi otics earlier in her hospitalization. She began having diarrhea but it tested negative for Clostridium difficile. Symptomatic treatment. (5) Recurrent bacterial cystitis Is this a current diagnosis for this admission?: Yes Summary: The patient has a history of recurrent cystitis with ESBL E. coli. She did have a positive urine culture but the colony count was only 10,000-20,000 which does not meet clinical guidelines for acute intervention. Evidently this is a chronic issue for this patient. (6) Critical illness myopathy Is this a current diagnosis for this admission?: Yes Summary: Because of her prolonged hospitalization the patient became quite weak. Physical therapy is working with the patient. She states that she ambulated down the auguste today. Because of her weakness and the family's refusal for her to go to a halfway facility she will be discharged with home health to continue therapies with the goal of ongoing strengthening. - Additional Information Resuscitation Status: Full Code Discharge Diet: Cardiac, Diabetic Discharge Activity: Activity As Tolerated, Balance Activity w/Rest, Slowly Increase Activity, Weigh Daily Prescriptions: Ipratropium/Albuterol Sulfate [Duoneb 3 ml Ampul] 3 ml NEB RTQ6 30 Days #120 vial.neb Nystatin [Mycostatin Topical Powder 15 gm] 1 applic TP BID #1 bottle Potassium Chloride [Klor-Con 10 Meq Capsule ER] 10 meq PO BID 30 Days #60 capsule.er Prednisone [Deltasone 20 mg Tablet] 60 mg PO WBRKFST 3 Days tablet Home Medications: Albuterol Sulfate [Ventolin 0.083% Neb 2.5 mg/3 mL Ampul] 1 vial NEB RTQ6 07/08/18 Fluticasone Propionate [Flonase Nasal [place] 50 Mcg/[place] 16 gm] 2 sprays NASL Q12 07/08/18 Guaifenesin [Mucinex] 600 mg PO Q12 07/08/18 Ipratropium [place] [Atrovent 0.02% Neb 0.5 mg/2.5 ml Ampul] 0.5 mg NEB RTQ8 07/08/18 Levalbuterol HCl [Xopenex Neb 1.25 mg/3 ml Ampul] 1.25 mg NEB RTQ4HP PRN 07/08/18 Levalbuterol HCl [Xopenex Neb 1.25 mg/3 ml Ampul] 1.25 mg NEB RTQ8 07/08/18 Levothyroxine Sodium [Synthroid 0.112 mg Tablet] 112 mcg PO Q6AM 07/08/18 Menthol/Camphor [Sarna Anti-Itch Lotion] 1 applic TP TID 07/08/18 Metformin HCl [Glucophage 500 mg Tablet] 500 mg PO BID 07/08/18 Multivitamin with Iron [Multivitamins with Iron] 2 each PO DAILY 07/08/18 Olopatadine HCl [Patanol 0.1% Oph Soln 5 ml] 1 drop OU BID 07/08/18 Pantoprazole Sodium [Protonix] 40 mg PO DAILY 07/08/18 Tiotropium [place] [Spiriva Handihaler 5 Cap/Kit (18 Mcg/Cap)] 1 cap IH DAILY 07/08/18 Acetaminophen [Tylenol 325 mg Tablet] 325 mg PO Q4HP PRN tablet 07/10/18 Fluticasone Propionate [Flonase Nasal [place] 50 Mcg/[place] 16 gm] 2 spray NASL Q12 spray.pump 07/10/18 Ipratropium [place] [Atrovent 0.02% Neb 0.5 mg/2.5 ml Ampul] 0.5 mg NEB RTQ8 vial.neb 07/10/18 Levalbuterol HCl [Xopenex Neb 1.25 mg/3 ml Ampul] 1.25 mg NEB RTQ4HP PRN vial.neb 07/10/18 Levalbuterol HCl [Xopenex Neb 1.25 mg/3 ml Ampul] 1.25 mg NEB RTQ8 vial.neb 07/10/18 Levothyroxine Sodium [Synthroid 0.112 mg Tablet] 0.112 mg PO Q6AM tablet 07/10/18 Nystatin [Mycostatin Topical Powder 15 gm] 1 applic TP BID #1 bottle 07/10/18 Olopatadine HCl [Patanol 0.1% Oph Soln 5 ml] 1 drop OU BID bottle 07/10/18 Prednisone [Deltasone 20 mg Tablet] 60 mg PO WBRKFST 3 Days tablet 07/10/18 Insulin Lispro [Humalog Insulin (Lispro) 100 unit/mL] 0 - 12 unit SUBCUT ACP PRN unit 07/19/18 Levalbuterol HCl [Xopenex Neb 1.25 mg/3 ml Ampul] 1.25 mg NEB RTQ6HP PRN vial.neb 07/19/18 Potassium Chloride [Klor-Con 10 Meq Capsule ER] 10 meq PO DAILY capsule.er 07/19/18 Prednisone [Deltasone 20 mg Tablet] 30 mg PO WBRKFST tablet 07/19/18 Ipratropium/Albuterol Sulfate [Duoneb 3 ml Ampul] 3 ml NEB RTQ6 30 Days #120 vial.neb 07/21/18 Potassium Chloride [Klor-Con 10 Meq Capsule ER] 10 meq PO BID 30 Days #60 capsule.er 07/21/18 History of Present Illness Patient complains of: Shortness of breath History of Present Illness: The patient was at a halfway facility. She has a history of chronic ob structive pulmonary disease with a distant history of lung cancer. She has mild dementia. She was admitted for an exacerbation of her COPD with acute on chronic hypoxic hypercapnic respiratory failure and pneumonia with altered mental status. Please see the 2 previously dictated discharge summaries for additional details. Hospital Course Hospital Course: The patient had a prolonged hospital course. Initial discharge was planned for 1 week ago. The patient's daughter appealed. The patient had a plan discharge for 2 days ago again. The patient's daughter appealed that this time the insurance company denied additional days. The patient's daughter is trying to get the patient to [place] where she lives. Patient is still very weak but with oxygen supplied by the airline she should be able to travel accompanied and will need wheelchair transit from gait to gait. The patient did have a prolonged course. Please see to previous dictated discharge summaries for full details. Physical Exam Vital Signs: Temp Pulse Resp BP Pulse Ox 97.3 F 94 16 128/57 H 100 07/21/18 11:52 07/21/18 11:52 07/21/18 11:52 07/21/18 11:52 07/21/18 11:52 Intake & Output 07/20/18 07/21/18 07/22/18 06:59 06:59 06:59 Intake Total 918 666 Balance 918 666 Weight 80.6 kg 68.5 kg General appearance: PRESENT: no acute distress, cooperative Mouth exam: PRESENT: dry mucosa, tongue midline Neck exam: ABSENT: carotid bruit, lymphadenopathy Respiratory exam: PRESENT: symmetrical, unlabored, other - Slightly congested breath sounds bilaterally.. ABSENT: accessory muscle use, rales, rhonchi, wheezes Cardiovascular exam: PRESENT: RRR, +S1, +S2 GI/Abdominal exam: PRESENT: normal bowel sounds, soft. ABSENT: distended, tenderness Neurological exam: PRESENT: alert, awake, oriented to person, oriented to place, oriented to situation, CN II-XII grossly intact Psychiatric exam: PRESENT: appropriate affect, normal mood, other - Happy to be going home. ABSENT: agitated, anxious Focused psych exam: ABSENT: restlessness Skin exam: PRESENT: other - Very thin skin. Bruising upper extremities. Results Laboratory Results: 07/15/18 09:08 07/15/18 07:16 07/07/18 07/07/18 16:45 18:53 Troponin I 0.035 0.031 NT-Pro-B Natriuret Pep 1850 H Impressions: Chest/Abdomen CTA 07/07/18 17:50 IMPRESSION: No pulmonary emboli. Moderate to large bilateral pleural effusions right greater than left. On the right side extension to the level of the hilum with there is dense consolidation and atelectasis but no definitive mass lesion. 2 cm solid mass arising from the right kidney. Suspicious for renal cell carcinoma. Thoracentesis Ultrasound 07/09/18 16:42 IMPRESSION: SUCCESSFUL THORACENTESIS USING ULTRASOUND GUIDANCE. Chest X-Ray 07/18/18 00:00 IMPRESSION: There appears to be scarring in the right hilum. There is a minimal left pleural effusion. No new finding is seen. Qualifiers - * PATIENT BEING DISCHARGED WITH ANY OF THE FOLLOWING DIAGNOSIS: No Plan Discharge Plan: As the family refused the patient transferring back to the halfway facility, they will be taking the patient home waiting travel plans for the patient to fly to [place] to be with her daughter. In the interim I have ordered home health to continue strengthening with therapy as well as monitoring for medication compliance. Home oxygen therapy with nebulizer has been ordered as well. Time Spent: Greater than 30 Minutes
[2018-07-21] MEDS ORDERED: MENTHOL TP SCH (21:30)
[2018-07-21] MEDS ORDERED: CAMPHOR TP SCH (21:30)
[2018-07-21] MEDS: HALOPERIDOL 1 MG TABLET PO PRN (22:14)
[2018-07-22] MEDS: IPRATROPIUM/ALBUTEROL 0.5-2.5 MG/3 ML AMPUL NEB SCH ×3 (00:07→20:20)
[2018-07-22] MEDS: LANSOPRAZOLE 30 MG TAB.RAP.DR PO SCH (06:25)
[2018-07-22] MEDS: LEVOTHYROXINE SODIUM 0.112 MG TABLET PO SCH (06:25)
[2018-07-22] MEDS: PREDNISONE 20 MG TABLET PO SCH (09:07)
[2018-07-22] MEDS: POTASSIUM CHLORIDE 10 MEQ CAPSULE.ER PO SCH ×2 (09:07→17:22)
[2018-07-22] MEDS: MULTIVITAMINS W-IRON TABLET, CHEWABLE PO SCH (09:12)
[2018-07-22] MEDS: FLUTICASONE NASAL SPRAY 50 MCG/SPRY 120 SPRAY/16 GM NASL SCH ×2 (09:12→21:32)
[2018-07-22] MEDS: TIOTROPIUM BROMIDE DPI 5 CAP/KIT (18 MCG/CAP) IH SCH (09:12)
[2018-07-22] MEDS: GUAIFENESIN 600 MG TABLET.SA PO SCH ×2 (09:12→21:32)
[2018-07-22] MEDS: OLOPATADINE HCL 0.1% OPH SOLN 5 ML OU SCH ×2 (09:13→17:22)
[2018-07-22] MEDS: INSULIN LISPRO 100 UNIT/ML 3 ML VIAL SUBCUT PRN ×3 (09:14→21:32)
--- NOTE | 2018-07-22 15:04 | PDOC PROGRESS REPORT ---
Subjective Progress Note for:: 07/22/18 Subjective:: The patient is pending discharge. Awaiting medical equipment. She still has a very congested cough Reason For Visit: RENAL MASS, PLEURAL EFF Physical Exam Vital Signs: Temp Pulse Resp BP Pulse Ox 98.8 F 101 H 16 121/63 100 07/22/18 11:34 07/22/18 11:34 07/22/18 11:34 07/22/18 11:34 07/22/18 11:34 Intake & Output 07/21/18 07/22/18 07/23/18 06:59 06:59 06:59 Intake Total 666 404 Balance 666 404 Weight 68.5 kg 68.2 kg General appearance: PRESENT: no acute distress, cooperative, well-developed Respiratory exam: PRESENT: prolonged expiratory phas, rhonchi - Rhonchorous cough, stridor, symmetrical, unlabored, wheezes Cardiovascular exam: PRESENT: RRR, +S1, +S2 GI/Abdominal exam: PRESENT: normal bowel sounds, soft. ABSENT: distended, tenderness Neurological exam: PRESENT: alert, awake, oriented to person, oriented to place Psychiatric exam: PRESENT: flat affect Results Laboratory Results: 07/15/18 09:08 07/15/18 07:16 07/19/18 12:15 Sputum Gram Stain - Final 07/19/18 12:15 Sputum Sputum Culture - Final Corynebacterium Striatum 07/07/18 07/07/18 16:45 18:53 Troponin I 0.035 0.031 NT-Pro-B Natriuret Pep 1850 H Impressions: Chest/Abdomen CTA 07/07/18 17:50 IMPRESSION: No pulmonary emboli. Moderate to large bilateral pleural effusions right greater than left. On the right side extension to the level of the hilum with there is dense consolidation and atelectasis but no definitive mass lesion. 2 cm solid mass arising from the right kidney. Suspicious for renal cell carcinoma. Thoracentesis Ultrasound 07/09/18 16:42 IMPRESSION: SUCCESSFUL THORACENTESIS USING ULTRASOUND GUIDANCE. Chest X-Ray 07/18/18 00:00 IMPRESSION: There appears to be scarring in the right hilum. There is a minimal left pleural effusion. No new finding is seen. Assessment & Plan - Diagnosis (1) Acute on chronic respiratory failure with hypoxia and hypercapnia Is this a current diagnosis for this admission?: Yes Plan: Going to encourage use of flutter valve and chest physiotherapy to release his secretions. We will also written an order for the patient to be out of bed 3 times a day and hopefully the patient will be compliant. (2) COPD exacerbation Is this a current diagnosis for this admission?: Yes Plan: I have increased the duo nebs to 4 times a day. We need to encourage the flutter valve and I have added chest physiotherapy. (3) Renal cell carcinoma Qualifiers: Laterality: right Qualified Code(s): C64.1 - Malignant neoplasm of right kidney, except renal pelvis Is this a current diagnosis for this admission?: Yes Plan: No active treatment currently. (4) Diarrhea Qualifiers: Diarrhea type: unspecified type Qualified Code(s): R19.7 - Diarrhea, unspecified Is this a current diagnosis for this admission?: Yes Plan: Resolved (5) Recurrent bacterial cystitis Is this a current diagnosis for this admission?: Yes Plan: Currently asymptomatic (6) Critical illness myopathy Is this a current diagnosis for this admission?: Yes Plan: Patient will benefit from physical therapy as an outpatient. - Time Time Spent with patient: 15-24 minutes Medications reviewed and adjusted accordingly: Yes - Plan Summary Plan Summary: There have been multiple delays in discharge. There were various issues. We need to increase her frequency of pulmonary toilet and get the patient out of bed to help mobilize secretions.
[2018-07-22] MEDS: HALOPERIDOL 1 MG TABLET PO PRN (21:32)
[2018-07-23] MEDS: IPRATROPIUM/ALBUTEROL 0.5-2.5 MG/3 ML AMPUL NEB SCH ×4 (02:31→19:44)
[2018-07-23] MEDS: LANSOPRAZOLE 30 MG TAB.RAP.DR PO SCH (05:22)
[2018-07-23] MEDS: LEVOTHYROXINE SODIUM 0.112 MG TABLET PO SCH (05:22)
[2018-07-23] MEDS: OLOPATADINE HCL 0.1% OPH SOLN 5 ML OU SCH ×2 (11:00→17:57)
[2018-07-23] MEDS: GUAIFENESIN 600 MG TABLET.SA PO SCH ×2 (11:00→22:51)
[2018-07-23] MEDS: FLUTICASONE NASAL SPRAY 50 MCG/SPRY 120 SPRAY/16 GM NASL SCH (11:00)
[2018-07-23] MEDS: POTASSIUM CHLORIDE 10 MEQ CAPSULE.ER PO SCH ×2 (11:00→17:56)
[2018-07-23] MEDS: PREDNISONE 20 MG TABLET PO SCH (11:00)
[2018-07-23] MEDS: MULTIVITAMINS W-IRON TABLET, CHEWABLE PO SCH (11:00)
[2018-07-23 14:02] LABS: HEMATOCRIT 26.7 % (36.0-47.0); HEMOGLOBIN 8.8 g/dL (12.0-15.5); MEAN CORPUSCULAR HEMOGLOBIN 29.9 pg (27.0-33.4); MEAN CORPUSCULAR HGB CONC 33.1 g/dL (32.0-36.0); MEAN CORPUSCULAR VOLUME 91 fl (80-97); PLATELET COUNT 145 10^3/uL (150-450); RED BLOOD COUNT 2.94 10^6/uL (3.72-5.28); RED CELL DISTRIBUTION WIDTH 17.3 % (11.5-14.0); WHITE BLOOD COUNT 6.9 10^3/uL (4.0-10.5)
[2018-07-23 14:22] LABS: BLOOD UREA NITROGEN 18 mg/dL (7-20); CALCIUM 9.1 mg/dL (8.4-10.2); GLUCOSE 135 mg/dL (75-110); POTASSIUM 3.5 mmol/L (3.6-5.0)
[2018-07-23 14:28] LABS: CARBON DIOXIDE 31 mmol/L (22-30); CHLORIDE 108 mmol/L (98-107); SODIUM 141.8 mmol/L (137-145)
[2018-07-23 14:31] LABS: ABSOLUTE LYMPHOCYTES# (MANUAL) 0.3 10^3/uL (0.5-4.7); ABSOLUTE MONOCYTES # (MANUAL) 0.5 10^3/uL (0.1-1.4); ABSOLUTE NEUTROPHILS# (MANUAL) 5.9 10^3/uL (1.7-8.2); BASOPHILS % (MANUAL) 0 % (0-2); EOSINOPHILS % (MANUAL) 2 % (0-6); LYMPHOCYTES % (MANUAL) 5 % (13-45); MONOCYTES % (MANUAL) 7 % (3-13); SEGMENTED NEUTROPHILS % (MAN) 86 % (42-78); TOTAL CELLS COUNTED 100
[2018-07-23 14:32] LABS: ANISOCYTOSIS 1+; OVALOCYTES 1+; PLATELET COMMENT DECREASED; POIKILOCYTOSIS 1+
[2018-07-23 14:33] LABS: ANION GAP 3 (5-19)
--- NOTE | 2018-07-23 16:36 | PDOC PROGRESS REPORT ---
Subjective Progress Note for:: 07/23/18 Subjective:: The patient is still in bed. She awakens easily. She is not in distress. Reason For Visit: RENAL MASS, PLEURAL EFF Physical Exam Vital Signs: Temp Pulse Resp BP Pulse Ox 98.9 F 81 16 121/61 96 07/23/18 12:19 07/23/18 14:18 07/23/18 14:18 07/23/18 12:19 07/23/18 14:18 Intake & Output 07/22/18 07/23/18 07/24/18 06:59 06:59 06:59 Intake Total 404 742 Balance 404 742 Weight 68.2 kg 69.4 kg General appearance: PRESENT: no acute distress, cooperative, well-developed Head exam: PRESENT: atraumatic, normocephalic Respiratory exam: PRESENT: rhonchi - Patient has less congested breath sounds today., symmetrical, unlabored. ABSENT: stridor, wheezes Cardiovascular exam: PRESENT: RRR, +S1, +S2 GI/Abdominal exam: PRESENT: normal bowel sounds, soft. ABSENT: distended, tenderness Neurological exam: PRESENT: alert, awake, oriented to person, oriented to place Psychiatric exam: PRESENT: appropriate affect, normal mood. ABSENT: agitated, anxious Focused psych exam: ABSENT: restlessness Results Laboratory Results: 07/23/18 13:50 07/23/18 13:50 07/23/18 07/23/18 13:50 13:50 WBC 6.9 RBC 2.94 L Hgb 8.8 L Hct 26.7 L MCV 91 MCH 29.9 MCHC 33.1 RDW 17.3 H Plt Count 145 L Seg Neutrophils % Not Reportable Lymphocytes % Not Reportable Monocytes % Not Reportable Eosinophils % Not Reportable Basophils % Not Reportable Absolute Neutrophils Not Reportable Absolute Lymphocytes Not Reportable Absolute Monocytes Not Reportable Absolute Eosinophils Not Reportable Absolute Basophils Not Reportable Sodium 141.8 Potassium 3.5 L Chloride 108 H Carbon Dioxide 31 H Anion Gap 3 L BUN 18 Creatinine 0.82 Est GFR ( Amer) > 60 Est GFR (Non-Af Amer) > 60 Glucose 135 H Calcium 9.1 07/07/18 07/07/18 16:45 18:53 Troponin I 0.035 0.031 NT-Pro-B Natriuret Pep 1850 H Impressions: Chest/Abdomen CTA 07/07/18 17:50 IMPRESSION: No pulmonary emboli. Moderate to large bilateral pleural effusions right greater than left. On the right side extension to the level of the hilum with there is dense consolidation and atelectasis but no definitive mass lesion. 2 cm solid mass arising from the right kidney. Suspicious for renal cell carcinoma. Thoracentesis Ultrasound 07/09/18 16:42 IMPRESSION: SUCCESSFUL THORACENTESIS USING ULTRASOUND GUIDANCE. Chest X-Ray 07/18/18 00:00 IMPRESSION: There appears to be scarring in the right hilum. There is a minimal left pleural effusion. No new finding is seen. Assessment & Plan - Diagnosis (1) Acute on chronic respiratory failure with hypoxia and hypercapnia Is this a current diagnosis for this admission?: Yes Plan: The patient has been stable on oxygen. She has had some thick secretions but a culture revealed corynebacterium which can be normal oral fernando. I have ordered chest physiotherapy as well as nebulizer therapy. (2) COPD exacerbation Is this a current diagnosis for this admission?: Yes Plan: Continue prednisone taper and nebulizer therapy. (3) Renal cell carcinoma Qualifiers: Laterality: right Qualified Code(s): C64.1 - Malignant neoplasm of right kidney, except renal pelvis Is this a current diagnosis for this admission?: Yes Plan: No active treatment currently. (4) Diarrhea Qualifiers: Diarrhea type: unspecified type Qualified Code(s): R19.7 - Diarrhea, unspecified Is this a current diagnosis for this admission?: Yes Plan: Appears to have resolved (5) Recurrent bacterial cystitis Is this a current diagnosis for this admission?: Yes Plan: No clinical signs of infection. (6) Critical illness myopathy Is this a current diagnosis for this admission?: Yes Plan: She reports that physical therapy did see her today. She does admit that she is still very weak. Continue therapy. - Time Time Spent with patient: 15-24 minutes Medications reviewed and adjusted accordingly: Yes
[2018-07-23] MEDS: TIOTROPIUM BROMIDE DPI 5 CAP/KIT (18 MCG/CAP) IH SCH (17:57)
[2018-07-23] MEDS: INSULIN LISPRO 100 UNIT/ML 3 ML VIAL SUBCUT PRN (17:57)
[2018-07-24] MEDS: FLUTICASONE NASAL SPRAY 50 MCG/SPRY 120 SPRAY/16 GM NASL SCH ×3 (00:50→22:02)
[2018-07-24] MEDS: IPRATROPIUM/ALBUTEROL 0.5-2.5 MG/3 ML AMPUL NEB SCH ×4 (01:56→20:32)
[2018-07-24] MEDS: ACETAMINOPHEN 325 MG TABLET PO PRN (06:46)
[2018-07-24] MEDS: LANSOPRAZOLE 30 MG TAB.RAP.DR PO SCH (06:46)
[2018-07-24] MEDS: LEVOTHYROXINE SODIUM 0.112 MG TABLET PO SCH (06:46)
[2018-07-24] MEDS: PREDNISONE 20 MG TABLET PO SCH (09:35)
[2018-07-24] MEDS: MULTIVITAMINS W-IRON TABLET, CHEWABLE PO SCH (09:35)
[2018-07-24] MEDS: TIOTROPIUM BROMIDE DPI 5 CAP/KIT (18 MCG/CAP) IH SCH (09:36)
[2018-07-24] MEDS: OLOPATADINE HCL 0.1% OPH SOLN 5 ML OU SCH ×2 (09:36→18:25)
[2018-07-24] MEDS: GUAIFENESIN 600 MG TABLET.SA PO SCH ×2 (09:36→22:01)
[2018-07-24] MEDS: POTASSIUM CHLORIDE 10 MEQ CAPSULE.ER PO SCH ×2 (09:36→18:25)
--- NOTE | 2018-07-24 13:22 | PDOC PROGRESS REPORT ---
Subjective Progress Note for:: 07/24/18 Subjective:: Patient is sitting up. She was sleeping but awakens easily. She had her right hand laying in the food on her lunch plate. Reason For Visit: RENAL MASS, PLEURAL EFF Physical Exam Vital Signs: Temp Pulse Resp BP Pulse Ox 98.1 F 98 16 115/65 99 07/24/18 08:25 07/24/18 09:01 07/24/18 09:01 07/24/18 08:25 07/24/18 09:01 Intake & Output 07/23/18 07/24/18 07/25/18 06:59 06:59 06:59 Intake Total 742 1820 Balance 742 1820 Weight 69.4 kg 74.2 kg General appearance: PRESENT: cooperative Head exam: PRESENT: normocephalic Mouth exam: PRESENT: moist Respiratory exam: PRESENT: rhonchi - Still with congested cough, symmetrical, unlabored. ABSENT: wheezes Cardiovascular exam: PRESENT: RRR, +S1, +S2 GI/Abdominal exam: PRESENT: normal bowel sounds, soft. ABSENT: tenderness Neurological exam: PRESENT: alert, awake, oriented to person, oriented to place Psychiatric exam: PRESENT: flat affect Results Laboratory Results: 07/23/18 13:50 07/23/18 13:50 07/23/18 07/23/18 13:50 13:50 WBC 6.9 RBC 2.94 L Hgb 8.8 L Hct 26.7 L MCV 91 MCH 29.9 MCHC 33.1 RDW 17.3 H Plt Count 145 L Seg Neutrophils % Not Reportable Lymphocytes % Not Reportable Monocytes % Not Reportable Eosinophils % Not Reportable Basophils % Not Reportable Absolute Neutrophils Not Reportable Absolute Lymphocytes Not Reportable Absolute Monocytes Not Reportable Absolute Eosinophils Not Reportable Absolute Basophils Not Reportable Sodium 141.8 Potassium 3.5 L Chloride 108 H Carbon Dioxide 31 H Anion Gap 3 L BUN 18 Creatinine 0.82 Est GFR ( Amer) > 60 Est GFR (Non-Af Amer) > 60 Glucose 135 H Calcium 9.1 07/07/18 07/07/18 16:45 18:53 Troponin I 0.035 0.031 NT-Pro-B Natriuret Pep 1850 H Impressions: Chest/Abdomen CTA 07/07/18 17:50 IMPRESSION: No pulmonary emboli. Moderate to large bilateral pleural effusions right greater than left. On the right side extension to the level of the hilum with there is dense consolidation and atelectasis but no definitive mass lesion. 2 cm solid mass arising from the right kidney. Suspicious for renal cell carcinoma. Thoracentesis Ultrasound 07/09/18 16:42 IMPRESSION: SUCCESSFUL THORACENTESIS USING ULTRASOUND GUIDANCE. Chest X-Ray 07/18/18 00:00 IMPRESSION: There appears to be scarring in the right hilum. There is a minimal left pleural effusion. No new finding is seen. Assessment & Plan - Diagnosis (1) Acute on chronic respiratory failure with hypoxia and hypercapnia Is this a current diagnosis for this admission?: Yes Plan: Still with chronic cough. Last sputum had diphtheroids. This is not a usual pathogen but usually is normal fernando. She remains on scheduled duo nebs and Spiriva. Continue prednisone taper. (2) COPD exacerbation Is this a current diagnosis for this admission?: Yes Plan: As above (3) Renal cell carcinoma Qualifiers: Laterality: right Qualified Code(s): C64.1 - Malignant neoplasm of right kidney, except renal pelvis Is this a current diagnosis for this admission?: Yes Plan: Stable. No active treatment. (4) Critical illness myopathy Is this a current diagnosis for this admission?: Yes Plan: Patient was up in the chair today. I do not think she was particularly comfortable. Physical therapy will continue to work with her. - Time Time Spent with patient: 15-24 minutes Medications reviewed and adjusted accordingly: Yes
[2018-07-24] MEDS: INSULIN LISPRO 100 UNIT/ML 3 ML VIAL SUBCUT PRN ×2 (13:30→18:26)
[2018-07-25] MEDS: IPRATROPIUM/ALBUTEROL 0.5-2.5 MG/3 ML AMPUL NEB SCH ×4 (01:37→20:52)
[2018-07-25 05:39] LABS: HEMATOCRIT 27.6 % (36.0-47.0); HEMOGLOBIN 9.2 g/dL (12.0-15.5); MEAN CORPUSCULAR HEMOGLOBIN 30.4 pg (27.0-33.4); MEAN CORPUSCULAR HGB CONC 33.2 g/dL (32.0-36.0); MEAN CORPUSCULAR VOLUME 92 fl (80-97); PLATELET COUNT 147 10^3/uL (150-450); RED BLOOD COUNT 3.01 10^6/uL (3.72-5.28); RED CELL DISTRIBUTION WIDTH 17.3 % (11.5-14.0); WHITE BLOOD COUNT 6.2 10^3/uL (4.0-10.5)
[2018-07-25] MEDS: LEVOTHYROXINE SODIUM 0.112 MG TABLET PO SCH (05:40)
[2018-07-25] MEDS: LANSOPRAZOLE 30 MG TAB.RAP.DR PO SCH (05:41)
[2018-07-25 06:20] LABS: BLOOD UREA NITROGEN 22 mg/dL (7-20); CALCIUM 9.3 mg/dL (8.4-10.2); GLUCOSE 95 mg/dL (75-110); POTASSIUM 3.8 mmol/L (3.6-5.0)
[2018-07-25 06:26] LABS: CARBON DIOXIDE 30 mmol/L (22-30); CHLORIDE 108 mmol/L (98-107); SODIUM 141.5 mmol/L (137-145)
[2018-07-25 06:29] LABS: ANION GAP 4 (5-19)
[2018-07-25] MEDS: FLUTICASONE NASAL SPRAY 50 MCG/SPRY 120 SPRAY/16 GM NASL SCH ×2 (09:06→21:41)
[2018-07-25] MEDS: MULTIVITAMINS W-IRON TABLET, CHEWABLE PO SCH (09:07)
[2018-07-25] MEDS: PREDNISONE 20 MG TABLET PO SCH (09:07)
[2018-07-25] MEDS: POTASSIUM CHLORIDE 10 MEQ CAPSULE.ER PO SCH ×2 (09:07→17:56)
[2018-07-25] MEDS: OLOPATADINE HCL 0.1% OPH SOLN 5 ML OU SCH ×2 (09:07→17:56)
[2018-07-25] MEDS: GUAIFENESIN 600 MG TABLET.SA PO SCH ×2 (09:07→21:40)
[2018-07-25] MEDS: TIOTROPIUM BROMIDE DPI 5 CAP/KIT (18 MCG/CAP) IH SCH (10:00)
--- NOTE | 2018-07-25 14:29 | PDOC PROGRESS REPORT ---
Subjective Progress Note for:: 07/25/18 Subjective:: The patient is actually quite awake. She just finished lunch. She appears to be in good spirits. Reason For Visit: RENAL MASS, PLEURAL EFF Physical Exam Vital Signs: Temp Pulse Resp BP Pulse Ox 98.2 F 103 H 16 120/71 100 07/25/18 12:00 07/25/18 12:00 07/25/18 12:00 07/25/18 12:00 07/25/18 12:00 Intake & Output 07/24/18 07/25/18 07/26/18 06:59 06:59 06:59 Intake Total 1820 1278 Balance 1820 1278 Weight 74.2 kg 74.1 kg General appearance: PRESENT: no acute distress Head exam: PRESENT: normocephalic Mouth exam: PRESENT: moist, tongue midline Neck exam: ABSENT: carotid bruit, lymphadenopathy Respiratory exam: PRESENT: symmetrical, unlabored, other - The congested cough is significantly improved. There is an occasional sporadic rhonchi but limited and much better than previous exams Cardiovascular exam: PRESENT: RRR, +S1, +S2 GI/Abdominal exam: PRESENT: normal bowel sounds, soft. ABSENT: tenderness Neurological exam: PRESENT: alert, awake, oriented to person, oriented to place, oriented to situation Psychiatric exam: PRESENT: flat affect Results Laboratory Results: 07/25/18 04:41 07/25/18 04:41 07/25/18 07/25/18 04:41 04:41 WBC 6.2 RBC 3.01 L Hgb 9.2 L Hct 27.6 L MCV 92 MCH 30.4 MCHC 33.2 RDW 17.3 H Plt Count 147 L Sodium 141.5 Potassium 3.8 Chloride 108 H Carbon Dioxide 30 Anion Gap 4 L BUN 22 H Creatinine 0.97 Est GFR ( Amer) > 60 Est GFR (Non-Af Amer) 56 L Glucose 95 Calcium 9.3 07/07/18 07/07/18 16:45 18:53 Troponin I 0.035 0.031 NT-Pro-B Natriuret Pep 1850 H Impressions: Chest/Abdomen CTA 07/07/18 17:50 IMPRESSION: No pulmonary emboli. Moderate to large bilateral pleural effusions right greater than left. On the right side extension to the level of the hilum with there is dense consolidation and atelectasis but no definitive mass lesion. 2 cm solid mass arising from the right kidney. Suspicious for renal cell carcinoma. Thoracentesis Ultrasound 07/09/18 16:42 IMPRESSION: SUCCESSFUL THORACENTESIS USING ULTRASOUND GUIDANCE. Chest X-Ray 07/18/18 00:00 IMPRESSION: There appears to be scarring in the right hilum. There is a minimal left pleural effusion. No new finding is seen. Assessment & Plan - Diagnosis (1) Acute on chronic respiratory failure with hypoxia and hypercapnia Is this a current diagnosis for this admission?: Yes Plan: She is actually doing much better today. I believe the more aggressive respiratory regimen is helping. (2) COPD exacerbation Is this a current diagnosis for this admission?: Yes Plan: As noted above chest physiotherapy as well as the nebulizer treatments have made an improvement. (3) Renal cell carcinoma Qualifiers: Laterality: right Qualified Code(s): C64.1 - Malignant neoplasm of right kidney, except renal pelvis Is this a current diagnosis for this admission?: Yes Plan: Stable at this time. I do not believe there is an aggressive intervention planned. (4) Critical illness myopathy Is this a current diagnosis for this admission?: Yes Plan: I have asked physical therapy to work with her. I explained to her that she is not nearly strong enough to survive a trip to [place]. At that point she told me she has not want to go to [place] but I told her that something she can discuss with her daughter. She feels that she has enough help in this area however some family members have expressed concern that her care would be overwhelming. - Time Time Spent with patient: Less than 15 minutes Medications reviewed and adjusted accordingly: Yes
[2018-07-25] MEDS: INSULIN LISPRO 100 UNIT/ML 3 ML VIAL SUBCUT PRN (17:56)
[2018-07-25] MEDS: ACETAMINOPHEN 325 MG TABLET PO PRN (21:39)
[2018-07-26] MEDS: IPRATROPIUM/ALBUTEROL 0.5-2.5 MG/3 ML AMPUL NEB SCH ×4 (02:48→19:51)
[2018-07-26] MEDS: LANSOPRAZOLE 30 MG TAB.RAP.DR PO SCH (05:55)
[2018-07-26] MEDS: LEVOTHYROXINE SODIUM 0.112 MG TABLET PO SCH (05:55)
[2018-07-26] MEDS: PREDNISONE 20 MG TABLET PO SCH (08:29)
[2018-07-26] MEDS: FLUTICASONE NASAL SPRAY 50 MCG/SPRY 120 SPRAY/16 GM NASL SCH ×2 (09:45→23:29)
[2018-07-26] MEDS: GUAIFENESIN 600 MG TABLET.SA PO SCH ×2 (09:45→23:28)
[2018-07-26] MEDS: MULTIVITAMINS W-IRON TABLET, CHEWABLE PO SCH (09:45)
[2018-07-26] MEDS: TIOTROPIUM BROMIDE DPI 5 CAP/KIT (18 MCG/CAP) IH SCH (09:45)
[2018-07-26] MEDS: POTASSIUM CHLORIDE 10 MEQ CAPSULE.ER PO SCH ×2 (09:45→18:40)
[2018-07-26] MEDS: OLOPATADINE HCL 0.1% OPH SOLN 5 ML OU SCH ×2 (09:46→18:40)
[2018-07-26] MEDS: INSULIN LISPRO 100 UNIT/ML 3 ML VIAL SUBCUT PRN ×2 (18:41→23:28)
--- NOTE | 2018-07-26 20:42 | PDOC PROGRESS REPORT ---
Subjective Progress Note for:: 07/26/18 Subjective:: Awake, no complaint. Denies fever or chills, no chest pain or shortness of breath or palpitations. Worked with physical therapy. Reason For Visit: RENAL MASS, PLEURAL EFF Physical Exam Vital Signs: Temp Pulse Resp BP Pulse Ox 97.6 F 104 H 16 114/60 100 07/26/18 16:25 07/26/18 16:25 07/26/18 16:25 07/26/18 16:25 07/26/18 16:25 Intake & Output 07/25/18 07/26/18 07/27/18 06:59 06:59 06:59 Intake Total 1278 1752 320 Balance 1278 1752 320 Weight 74.1 kg 74.1 kg General appearance: PRESENT: no acute distress Head exam: PRESENT: normocephalic Mouth exam: PRESENT: moist Neck exam: ABSENT: carotid bruit, lymphadenopathy Respiratory exam: PRESENT: symmetrical, unlabored, other - The congested cough is significantly improved. There is an occasional sporadic rhonchi but limited and much better than previous exams Cardiovascular exam: PRESENT: RRR, +S1, +S2 GI/Abdominal exam: PRESENT: normal bowel sounds, soft. ABSENT: tenderness Neurological exam: PRESENT: alert, awake, oriented to person, oriented to place, oriented to situation Psychiatric exam: PRESENT: Normal affect Results Laboratory Results: 07/25/18 04:41 07/25/18 04:41 07/07/18 07/07/18 16:45 18:53 Troponin I 0.035 0.031 NT-Pro-B Natriuret Pep 1850 H Impressions: Chest/Abdomen CTA 07/07/18 17:50 IMPRESSION: No pulmonary emboli. Moderate to large bilateral pleural effusions right greater than left. On the right side extension to the level of the hilum with there is dense consolidation and atelectasis but no definitive mass lesion. 2 cm solid mass arising from the right kidney. Suspicious for renal cell carcinoma. Thoracentesis Ultrasound 07/09/18 16:42 IMPRESSION: SUCCESSFUL THORACENTESIS USING ULTRASOUND GUIDANCE. Chest X-Ray 07/18/18 00:00 IMPRESSION: There appears to be scarring in the right hilum. There is a minimal left pleural effusion. No new finding is seen. Assessment & Plan - Diagnosis (1) Acute on chronic respiratory failure with hypoxia and hypercapnia Is this a current diagnosis for this admission?: Yes (2) COPD exacerbation Is this a current diagnosis for this admission?: Yes (3) Critical illness myopathy Is this a current diagnosis for this admission?: Yes (4) Renal cell carcinoma Qualifiers: Laterality: right Qualified Code(s): C64.1 - Malignant neoplasm of right kidney, except renal pelvis Is this a current diagnosis for this admission?: Yes - Plan Summary Plan Summary: Patient is medically cleared for discharge.. Continue current management. PT/OT. Awaiting placement.
[2018-07-27] MEDS: IPRATROPIUM/ALBUTEROL 0.5-2.5 MG/3 ML AMPUL NEB SCH ×4 (02:13→20:55)
[2018-07-27] MEDS: LEVOTHYROXINE SODIUM 0.112 MG TABLET PO SCH (05:24)
[2018-07-27] MEDS: LANSOPRAZOLE 30 MG TAB.RAP.DR PO SCH (05:25)
[2018-07-27] MEDS: MULTIVITAMINS W-IRON TABLET, CHEWABLE PO SCH (09:13)
[2018-07-27] MEDS: GUAIFENESIN 600 MG TABLET.SA PO SCH ×2 (09:13→21:23)
[2018-07-27] MEDS: POTASSIUM CHLORIDE 10 MEQ CAPSULE.ER PO SCH ×2 (09:13→17:38)
[2018-07-27] MEDS: PREDNISONE 20 MG TABLET PO SCH (09:13)
[2018-07-27] MEDS: FLUTICASONE NASAL SPRAY 50 MCG/SPRY 120 SPRAY/16 GM NASL SCH ×3 (09:25→21:24)
[2018-07-27] MEDS: OLOPATADINE HCL 0.1% OPH SOLN 5 ML OU SCH ×2 (09:25→17:38)
[2018-07-27] MEDS: TIOTROPIUM BROMIDE DPI 5 CAP/KIT (18 MCG/CAP) IH SCH (11:11)
[2018-07-27] MEDS: INSULIN LISPRO 100 UNIT/ML 3 ML VIAL SUBCUT PRN (16:42)
[2018-07-27] MEDS: HALOPERIDOL 1 MG TABLET PO PRN (21:23)
[2018-07-28] MEDS: IPRATROPIUM/ALBUTEROL 0.5-2.5 MG/3 ML AMPUL NEB SCH ×4 (02:25→20:32)
[2018-07-28] MEDS: LANSOPRAZOLE 30 MG TAB.RAP.DR PO SCH (05:40)
[2018-07-28] MEDS: LEVOTHYROXINE SODIUM 0.112 MG TABLET PO SCH (05:40)
[2018-07-28] MEDS: OLOPATADINE HCL 0.1% OPH SOLN 5 ML OU SCH ×2 (09:09→17:50)
[2018-07-28] MEDS: POTASSIUM CHLORIDE 10 MEQ CAPSULE.ER PO SCH ×2 (09:09→17:49)
[2018-07-28] MEDS: MULTIVITAMINS W-IRON TABLET, CHEWABLE PO SCH (09:10)
[2018-07-28] MEDS: PREDNISONE 20 MG TABLET PO SCH (09:10)
[2018-07-28] MEDS: GUAIFENESIN 600 MG TABLET.SA PO SCH ×2 (09:10→22:46)
[2018-07-28] MEDS: FLUTICASONE NASAL SPRAY 50 MCG/SPRY 120 SPRAY/16 GM NASL SCH ×2 (09:11→22:46)
[2018-07-28] MEDS: TIOTROPIUM BROMIDE DPI 5 CAP/KIT (18 MCG/CAP) IH SCH (09:11)
--- NOTE | 2018-07-28 15:03 | PDOC PROGRESS REPORT ---
Subjective Progress Note for:: 07/27/18 Subjective:: Awake, no complaint no her name and that she is in the hospital. Denies fever or chills, no chest pain or shortness of breath or palpitations. Reason For Visit: RENAL MASS, PLEURAL EFF Physical Exam Vital Signs: Temp Pulse Resp BP Pulse Ox 98.3 F 108 H 20 110/58 L 100 07/27/18 15:58 07/27/18 15:58 07/27/18 15:58 07/27/18 15:58 07/27/18 15:58 Intake & Output 07/26/18 07/27/18 07/28/18 06:59 06:59 06:59 Intake Total 1752 320 300 Output Total 266 Balance 1752 54 300 Weight 74.1 kg 68.2 kg General appearance: PRESENT: no acute distress Head exam: PRESENT: normocephalic Mouth exam: PRESENT: moist Neck exam: ABSENT: carotid bruit, lymphadenopathy Respiratory exam: PRESENT: symmetrical, unlabored, occasional rhonchi but improved from previous Cardiovascular exam: PRESENT: RRR, +S1, +S2 GI/Abdominal exam: PRESENT: normal bowel sounds, soft. ABSENT: tenderness Neurological exam: PRESENT: alert, awake, oriented to person, oriented to place, oriented to situation Psychiatric exam: PRESENT: Normal affect Results Laboratory Results: 07/25/18 04:41 07/25/18 04:41 07/07/18 07/07/18 16:45 18:53 Troponin I 0.035 0.031 NT-Pro-B Natriuret Pep 1850 H Impressions: Chest/Abdomen CTA 07/07/18 17:50 IMPRESSION: No pulmonary emboli. Moderate to large bilateral pleural effusions right greater than left. On the right side extension to the level of the hilum with there is dense consolidation and atelectasis but no definitive mass lesion. 2 cm solid mass arising from the right kidney. Suspicious for renal cell carcinoma. Thoracentesis Ultrasound 07/09/18 16:42 IMPRESSION: SUCCESSFUL THORACENTESIS USING ULTRASOUND GUIDANCE. Chest X-Ray 07/18/18 00:00 IMPRESSION: There appears to be scarring in the right hilum. There is a minimal left pleural effusion. No new finding is seen. Assessment & Plan - Diagnosis (1) Acute on chronic respiratory failure with hypoxia and hypercapnia Is this a current diagnosis for this admission?: Yes (2) COPD exacerbation Is this a current diagnosis for this admission?: Yes (3) Critical illness myopathy Is this a current diagnosis for this admission?: Yes (4) Renal cell carcinoma Qualifiers: Laterality: right Qualified Code(s): C64.1 - Malignant neoplasm of right kidney, except renal pelvis Is this a current diagnosis for this admission?: Yes - Plan Summary Plan Summary: Patient is now stable and has since been medically cleared for discharge. Continue current management. PT/OT. Awaiting placement.
--- NOTE | 2018-07-28 15:25 | PDOC PROGRESS REPORT ---
Subjective Progress Note for:: 07/28/18 Subjective:: Awake, no complaint, she knows her name and that she is in the hospital. Denies fever or chills, no chest pain or shortness of breath or palpitations. Reason For Visit: RENAL MASS, PLEURAL EFF Physical Exam Vital Signs: Temp Pulse Resp BP Pulse Ox 97.7 F 110 H 20 116/63 100 07/28/18 12:12 07/28/18 12:12 07/28/18 12:12 07/28/18 12:12 07/28/18 12:12 Intake & Output 07/27/18 07/28/18 07/29/18 06:59 06:59 06:59 Intake Total 320 300 Output Total 266 Balance 54 300 Weight 68.2 kg 66.2 kg General appearance: PRESENT: no acute distress Head exam: PRESENT: normocephalic Mouth exam: PRESENT: moist Neck exam: ABSENT: carotid bruit, lymphadenopathy Respiratory exam: PRESENT: symmetrical, unlabored, occasional rhonchi but improved from previous Cardiovascular exam: PRESENT: RRR, +S1, +S2 GI/Abdominal exam: PRESENT: normal bowel sounds, soft. ABSENT: tenderness Neurological exam: PRESENT: alert, awake, oriented to person, oriented to place, oriented to situation Psychiatric exam: PRESENT: Normal affect Results Laboratory Results: 07/25/18 04:41 07/25/18 04:41 07/07/18 07/07/18 16:45 18:53 Troponin I 0.035 0.031 NT-Pro-B Natriuret Pep 1850 H Impressions: Chest/Abdomen CTA 07/07/18 17:50 IMPRESSION: No pulmonary emboli. Moderate to large bilateral pleural effusions right greater than left. On the right side extension to the level of the hilum with there is dense consolidation and atelectasis but no definitive mass lesion. 2 cm solid mass arising from the right kidney. Suspicious for renal cell carcinoma. Thoracentesis Ultrasound 07/09/18 16:42 IMPRESSION: SUCCESSFUL THORACENTESIS USING ULTRASOUND GUIDANCE. Chest X-Ray 07/18/18 00:00 IMPRESSION: There appears to be scarring in the right hilum. There is a minimal left pleural effusion. No new finding is seen. Assessment & Plan - Diagnosis (1) Acute on chronic respiratory failure with hypoxia and hypercapnia Is this a current diagnosis for this admission?: Yes (2) COPD exacerbation Is this a current diagnosis for this admission?: Yes (3) Critical illness myopathy Is this a current diagnosis for this admission?: Yes (4) Renal cell carcinoma Qualifiers: Laterality: right Qualified Code(s): C64.1 - Malignant neoplasm of right kidney, except renal pelvis Is this a current diagnosis for this admission?: Yes - Plan Summary Plan Summary: Patient is now stable and has since been medically cleared for discharge. Continue current management. Continue PT/OT. Patient has pain awaiting placement. I called her daughter in [place], Catherine Jasso (daughter and POA), I was able to reach on the third try -- [phone]. I updated her about patient's condition. Daughter states her niece may be able to accept patient at home with home health PT if oxygen was delivered before patient is discharged. Will continue to work with care management to see how we can make this happen.
[2018-07-29] MEDS: IPRATROPIUM/ALBUTEROL 0.5-2.5 MG/3 ML AMPUL NEB SCH ×4 (02:28→20:41)
[2018-07-29 03:03] LABS: ARTERIAL BLOOD BASE EXCESS 3.5 mmol/L; ARTERIAL BLOOD H2CO3 1.56 mmol/L (1.05-1.35); ARTERIAL BLOOD HCO3 29.4 mmol/L (20-24); ARTERIAL BLOOD O2 SATURATION 98.5 % (94-98); ARTERIAL BLOOD PCO2 51.8 mmHg (35-45); ARTERIAL BLOOD PH 7.37 (7.35-7.45); ARTERIAL BLOOD PO2 132.1 mmHg (80-100)
[2018-07-29 03:04] LABS: ARTERIAL BLOOD FIO2 28%
[2018-07-29 06:04] LABS: ABSOLUTE LYMPHOCYTES (AUTO) 0.6 10^3/uL (0.5-4.7); ABSOLUTE MONOCYTES (AUTO) 0.7 10^3/uL (0.1-1.4); ABSOLUTE NEUT (AUTO) 6.4 10^3/uL (1.7-8.2); BASOPHILS % (AUTO) 0.2 % (0-2); EOSINOPHILS % (AUTO) 0.4 % (0-6); HEMATOCRIT 27.3 % (36.0-47.0); HEMOGLOBIN 9.2 g/dL (12.0-15.5); LYMPHOCYTES % (AUTO) 7.5 % (13-45); MEAN CORPUSCULAR HEMOGLOBIN 30.6 pg (27.0-33.4); MEAN CORPUSCULAR HGB CONC 33.8 g/dL (32.0-36.0); MEAN CORPUSCULAR VOLUME 91 fl (80-97); MONOCYTES % (AUTO) 8.8 % (3-13); PLATELET COUNT 154 10^3/uL (150-450); RED BLOOD COUNT 3.01 10^6/uL (3.72-5.28); RED CELL DISTRIBUTION WIDTH 18.3 % (11.5-14.0); SEGMENTED NEUTROPHILS % (AUTO) 83.1 % (42-78); TOTAL CELLS COUNTED % (AUTO) 100 %; WHITE BLOOD COUNT 7.7 10^3/uL (4.0-10.5)
[2018-07-29 06:31] LABS: BLOOD UREA NITROGEN 20 mg/dL (7-20); CALCIUM 9.6 mg/dL (8.4-10.2); CHLORIDE 109 mmol/L (98-107); GLUCOSE 93 mg/dL (75-110); POTASSIUM 3.8 mmol/L (3.6-5.0)
[2018-07-29 06:37] LABS: CARBON DIOXIDE 29 mmol/L (22-30); SODIUM 142.9 mmol/L (137-145)
[2018-07-29 06:45] LABS: ANION GAP 5 (5-19)
[2018-07-29] MEDS: LEVOTHYROXINE SODIUM 0.112 MG TABLET PO SCH (06:47)
[2018-07-29] MEDS: LANSOPRAZOLE 30 MG TAB.RAP.DR PO SCH (06:55)
[2018-07-29] MEDS: MULTIVITAMINS W-IRON TABLET, CHEWABLE PO SCH (09:13)
[2018-07-29] MEDS: POTASSIUM CHLORIDE 10 MEQ CAPSULE.ER PO SCH ×2 (09:14→17:05)
[2018-07-29] MEDS: OLOPATADINE HCL 0.1% OPH SOLN 5 ML OU SCH ×2 (09:14→17:06)
[2018-07-29] MEDS: GUAIFENESIN 600 MG TABLET.SA PO SCH ×2 (09:14→22:01)
[2018-07-29] MEDS: PREDNISONE 20 MG TABLET PO SCH (09:14)
[2018-07-29] MEDS: FLUTICASONE NASAL SPRAY 50 MCG/SPRY 120 SPRAY/16 GM NASL SCH ×2 (09:15→22:00)
[2018-07-29] MEDS: TIOTROPIUM BROMIDE DPI 5 CAP/KIT (18 MCG/CAP) IH SCH (10:55)
[2018-07-29] MEDS: INSULIN LISPRO 100 UNIT/ML 3 ML VIAL SUBCUT PRN ×3 (12:50→22:01)
--- NOTE | 2018-07-29 16:26 | PDOC PROGRESS REPORT ---
Subjective Progress Note for:: 07/29/18 Subjective:: Awake, no complaint, she knows her name, the year, and that she is in the hospital. Denies fever or chills, no chest pain or shortness of breath or palpitations. Reason For Visit: RENAL MASS, PLEURAL EFF Physical Exam Vital Signs: Temp Pulse Resp BP Pulse Ox 98.2 F 108 H 18 99/57 L 97 07/29/18 12:00 07/29/18 14:41 07/29/18 14:41 07/29/18 12:00 07/29/18 14:41 Intake & Output 07/28/18 07/29/18 07/30/18 06:59 06:59 06:59 Intake Total 300 1030 366 Balance 300 1030 366 Weight 66.2 kg 67 kg General appearance: PRESENT: no acute distress Head exam: PRESENT: normocephalic Mouth exam: PRESENT: moist Neck exam: ABSENT: carotid bruit, lymphadenopathy Respiratory exam: PRESENT: symmetrical, unlabored, occasional rhonchi but improved from previous Cardiovascular exam: PRESENT: RRR, +S1, +S2 GI/Abdominal exam: PRESENT: normal bowel sounds, soft. ABSENT: tenderness Neurological exam: PRESENT: alert, awake, oriented to person, oriented to place, oriented to situation Psychiatric exam: PRESENT: Normal affect Results Laboratory Results: 07/29/18 04:40 07/29/18 04:40 07/29/18 07/29/18 07/29/18 02:52 04:40 04:40 WBC 7.7 RBC 3.01 L Hgb 9.2 L Hct 27.3 L MCV 91 MCH 30.6 MCHC 33.8 RDW 18.3 H Plt Count 154 Seg Neutrophils % 83.1 H Lymphocytes % 7.5 L Monocytes % 8.8 Eosinophils % 0.4 Basophils % 0.2 Absolute Neutrophils 6.4 Absolute Lymphocytes 0.6 Absolute Monocytes 0.7 Absolute Eosinophils 0.0 Absolute Basophils 0.0 Carbonic Acid 1.56 H HCO3/H2CO3 Ratio 18:1 ABG pH 7.37 ABG pCO2 51.8 H ABG pO2 132.1 H ABG HCO3 29.4 H ABG O2 Saturation 98.5 H ABG Base Excess 3.5 FiO2 28% Sodium 142.9 Potassium 3.8 Chloride 109 H Carbon Dioxide 29 Anion Gap 5 BUN 20 Creatinine 0.91 Est GFR ( Amer) > 60 Est GFR (Non-Af Amer) > 60 Glucose 93 Calcium 9.6 07/07/18 07/07/18 16:45 18:53 Troponin I 0.035 0.031 NT-Pro-B Natriuret Pep 1850 H Impressions: Chest/Abdomen CTA 07/07/18 17:50 IMPRESSION: No pulmonary emboli. Moderate to large bilateral pleural effusions right greater than left. On the r ight side extension to the level of the hilum with there is dense consolidation and atelectasis but no definitive mass lesion. 2 cm solid mass arising from the right kidney. Suspicious for renal cell carcinoma. Thoracentesis Ultrasound 07/09/18 16:42 IMPRESSION: SUCCESSFUL THORACENTESIS USING ULTRASOUND GUIDANCE. Chest X-Ray 07/18/18 00:00 IMPRESSION: There appears to be scarring in the right hilum. There is a minimal left pleural effusion. No new finding is seen. Assessment & Plan - Diagnosis (1) Acute on chronic respiratory failure with hypoxia and hypercapnia Is this a current diagnosis for this admission?: Yes (2) COPD exacerbation Is this a current diagnosis for this admission?: Yes (3) Critical illness myopathy Is this a current diagnosis for this admission?: Yes (4) Renal cell carcinoma Qualifiers: Laterality: right Qualified Code(s): C64.1 - Malignant neoplasm of right kidney, except renal pelvis Is this a current diagnosis for this admission?: Yes - Plan Summary Plan Summary: Patient is now stable and has since been medically cleared for discharge. Continue PT/OT. Patient has been awaiting placement versus possible discharge home with PT/OT.. Of note is that on 07/28/18, I called her daughter in [place], Catherine Jasso (daughter and POA) -- [phone]. I updated her about patient's condition. Daughter states her niece may be able to accept patient at home with home health PT if oxygen was delivered before patient is discharged. I discussed this with care management. Will continue to work with care management to see how we can make this happen.
[2018-07-29] MEDS: HALOPERIDOL 1 MG TABLET PO PRN (22:01)
[2018-07-30] MEDS: IPRATROPIUM/ALBUTEROL 0.5-2.5 MG/3 ML AMPUL NEB SCH ×4 (02:35→19:40)
[2018-07-30] MEDS: LEVOTHYROXINE SODIUM 0.112 MG TABLET PO SCH (06:25)
[2018-07-30] MEDS: LANSOPRAZOLE 30 MG TAB.RAP.DR PO SCH (06:25)
[2018-07-30] MEDS: MULTIVITAMINS W-IRON TABLET, CHEWABLE PO SCH (09:20)
[2018-07-30] MEDS: PREDNISONE 20 MG TABLET PO SCH (09:20)
[2018-07-30] MEDS: POTASSIUM CHLORIDE 10 MEQ CAPSULE.ER PO SCH ×2 (09:20→17:29)
[2018-07-30] MEDS: FLUTICASONE NASAL SPRAY 50 MCG/SPRY 120 SPRAY/16 GM NASL SCH ×3 (09:21→22:03)
[2018-07-30] MEDS: TIOTROPIUM BROMIDE DPI 5 CAP/KIT (18 MCG/CAP) IH SCH (09:21)
[2018-07-30] MEDS: GUAIFENESIN 600 MG TABLET.SA PO SCH ×2 (09:21→22:04)
[2018-07-30] MEDS: OLOPATADINE HCL 0.1% OPH SOLN 5 ML OU SCH ×2 (09:21→17:29)
--- NOTE | 2018-07-30 17:14 | PDOC PROGRESS REPORT ---
Subjective Progress Note for:: 07/30/18 Subjective:: Awake, no complaint. Again she is oriented to her name, the year, and that she is in the hospital. Denies fever or chills, no chest pain or shortness of breath or palpitations. Reason For Visit: RENAL MASS, PLEURAL EFF Physical Exam Vital Signs: Temp Pulse Resp BP Pulse Ox 98.4 F 117 H 19 113/61 100 07/30/18 15:20 07/30/18 15:20 07/30/18 15:20 07/30/18 15:20 07/30/18 15:20 Intake & Output 07/29/18 07/30/18 07/31/18 06:59 06:59 06:59 Intake Total 1030 721 Balance 1030 721 Weight 67 kg 67 kg General appearance: PRESENT: no acute distress Head exam: PRESENT: normocephalic Mouth exam: PRESENT: moist Neck exam: ABSENT: carotid bruit, lymphadenopathy Respiratory exam: PRESENT: symmetrical, unlabored, occasional rhonchi but improved from previous Cardiovascular exam: PRESENT: RRR, +S1, +S2 GI/Abdominal exam: PRESENT: normal bowel sounds, soft. ABSENT: tenderness Neurological exam: PRESENT: alert, awake, oriented to person, oriented to place, oriented to situation Psychiatric exam: PRESENT: Normal affect Results Laboratory Results: 07/29/18 04:40 07/29/18 04:40 07/07/18 07/07/18 16:45 18:53 Troponin I 0.035 0.031 NT-Pro-B Natriuret Pep 1850 H Impressions: Chest/Abdomen CTA 07/07/18 17:50 IMPRESSION: No pulmonary emboli. Moderate to large bilateral pleural effusions right greater than left. On the right side extension to the level of the hilum with there is dense consolidation and atelectasis but no definitive mass lesion. 2 cm solid mass arising from the right kidney. Suspicious for renal cell carci noma. Thoracentesis Ultrasound 07/09/18 16:42 IMPRESSION: SUCCESSFUL THORACENTESIS USING ULTRASOUND GUIDANCE. Chest X-Ray 07/18/18 00:00 IMPRESSION: There appears to be scarring in the right hilum. There is a minimal left pleural effusion. No new finding is seen. Assessment & Plan - Diagnosis (1) Acute on chronic respiratory failure with hypoxia and hypercapnia Is this a current diagnosis for this admission?: Yes (2) COPD exacerbation Is this a current diagnosis for this admission?: Yes (3) Critical illness myopathy Is this a current diagnosis for this admission?: Yes (4) Renal cell carcinoma Qualifiers: Laterality: right Qualified Code(s): C64.1 - Malignant neoplasm of right kidney, except renal pelvis Is this a current diagnosis for this admission?: Yes - Plan Summary Plan Summary: Patient is now stable and remains medically cleared for discharge. Continue PT/OT. Patient has been awaiting placement versus possible discharge home with PT/OT.. Of note is that on 07/28/18, I called her daughter in [place], Catherine Jasso (daughter and POA) -- [phone]. I updated her about patient's condition. Daughter states her niece may be able to accept patient at home with home health PT if oxygen was delivered before patient is discharged. I discussed this with care management. It appears the niece may not be able to take care of the patient. Care management will continue to work with patient a nd family.
[2018-07-30] MEDS: INSULIN LISPRO 100 UNIT/ML 3 ML VIAL SUBCUT PRN (17:29)
[2018-07-30] MEDS: HALOPERIDOL 1 MG TABLET PO PRN (22:04)
[2018-07-31] MEDS: IPRATROPIUM/ALBUTEROL 0.5-2.5 MG/3 ML AMPUL NEB SCH ×4 (02:21→19:45)
[2018-07-31] MEDS: LEVOTHYROXINE SODIUM 0.112 MG TABLET PO SCH (06:00)
[2018-07-31] MEDS: LANSOPRAZOLE 30 MG TAB.RAP.DR PO SCH (06:01)
[2018-07-31] MEDS: GUAIFENESIN 600 MG TABLET.SA PO SCH ×2 (10:33→23:36)
[2018-07-31] MEDS: POTASSIUM CHLORIDE 10 MEQ CAPSULE.ER PO SCH ×2 (10:33→17:25)
[2018-07-31] MEDS: PREDNISONE 20 MG TABLET PO SCH (10:33)
[2018-07-31] MEDS: MULTIVITAMINS W-IRON TABLET, CHEWABLE PO SCH (10:33)
[2018-07-31] MEDS: TIOTROPIUM BROMIDE DPI 5 CAP/KIT (18 MCG/CAP) IH SCH (10:33)
[2018-07-31] MEDS: OLOPATADINE HCL 0.1% OPH SOLN 5 ML OU SCH ×2 (10:35→17:25)
[2018-07-31] MEDS: FLUTICASONE NASAL SPRAY 50 MCG/SPRY 120 SPRAY/16 GM NASL SCH (10:39)
--- NOTE | 2018-07-31 18:36 | Progress Note ---
Provider Note Provider Note: The patient has been discharged; remain inpatient due to appeals process and placement needs. Please refer to transfer summary 07/10/18, transfer summary updated 07/19/2018, and discharge summary 07/21/18. Overnight events, vital signs, most recent laboratory evaluation are reviewed. No concerns per nursing. Briefly spoke with the patient at bedside; at the time of my visit she was alert and oriented to person, place, time, and portions of situation. She is aware that she is waiting for oxygen to be discharged back to home in the care of her son, Harjinder. She asks about plans to move to [place] to live with her daughter, Catherine. Otherwise, she has no questions or concerns at this time. Discussed with discharge planning. Waiting oxygen delivery; anticipate this will be available this evening. Agree with plan as established by previous providers. Patient remains medically stable for discharge.
[2018-07-31] MEDS: CARVEDILOL 3.125 MG TABLET PO SCH (23:36)
[2018-07-31] MEDS: INSULIN LISPRO 100 UNIT/ML 3 ML VIAL SUBCUT PRN (23:36)
[2018-08-01] MEDS: FLUTICASONE NASAL SPRAY 50 MCG/SPRY 120 SPRAY/16 GM NASL SCH ×3 (00:10→23:11)
[2018-08-01] MEDS: IPRATROPIUM/ALBUTEROL 0.5-2.5 MG/3 ML AMPUL NEB SCH ×4 (01:30→20:59)
[2018-08-01] MEDS: LEVOTHYROXINE SODIUM 0.112 MG TABLET PO SCH (06:04)
[2018-08-01] MEDS: LANSOPRAZOLE 30 MG TAB.RAP.DR PO SCH (06:04)
[2018-08-01] MEDS: PREDNISONE 20 MG TABLET PO SCH (08:52)
[2018-08-01] MEDS: MULTIVITAMINS W-IRON TABLET, CHEWABLE PO SCH (08:59)
[2018-08-01] MEDS: CARVEDILOL 3.125 MG TABLET PO SCH ×2 (08:59→23:09)
[2018-08-01] MEDS: POTASSIUM CHLORIDE 10 MEQ CAPSULE.ER PO SCH ×2 (09:00→17:34)
[2018-08-01] MEDS: TIOTROPIUM BROMIDE DPI 5 CAP/KIT (18 MCG/CAP) IH SCH (09:01)
[2018-08-01] MEDS: GUAIFENESIN 600 MG TABLET.SA PO SCH ×2 (09:01→23:09)
[2018-08-01] MEDS: OLOPATADINE HCL 0.1% OPH SOLN 5 ML OU SCH ×2 (09:01→17:35)
[2018-08-01 10:43] LABS: ARTERIAL BLOOD BASE EXCESS 3.4 mmol/L; ARTERIAL BLOOD FIO2 2L; ARTERIAL BLOOD H2CO3 1.61 mmol/L (1.05-1.35); ARTERIAL BLOOD HCO3 29.6 mmol/L (20-24); ARTERIAL BLOOD O2 SATURATION 98.8 % (94-98); ARTERIAL BLOOD PCO2 53.4 mmHg (35-45); ARTERIAL BLOOD PH 7.36 (7.35-7.45); ARTERIAL BLOOD PO2 151.3 mmHg (80-100); ARTERIAL BLOOD TOTAL CO2 31.2 mmol/L (21-25)
--- NOTE | 2018-08-01 10:48 | RADIOLOGY REPORT (SQ) ---
EXAM DESCRIPTION: CHEST SINGLE VIEW COMPLETED DATE/TIME: 08/01/2018 10:27 am REASON FOR STUDY: dyspnea, rhonchi, cough COMPARISON: 07/18/2018. FINDINGS: Single-view chest AP portable upright at approximately 1018 hours. Slightly distorted appearance of the right hilum, unchanged. Mild pleural thickening. Mild basilar areas of subsegmental atelectasis. No pneumothorax. Relatively stable appearance of the chest overall. TECHNICAL DOCUMENTATION: JOB ID: [id number] Reading location - IP/workstation name: [email or web address]
[2018-08-01 12:10] LABS: ABSOLUTE LYMPHOCYTES (AUTO) 0.3 10^3/uL (0.5-4.7); ABSOLUTE MONOCYTES (AUTO) 0.9 10^3/uL (0.1-1.4); ABSOLUTE NEUT (AUTO) 8.5 10^3/uL (1.7-8.2); BASOPHILS % (AUTO) 0.1 % (0-2); EOSINOPHILS % (AUTO) 0.4 % (0-6); HEMATOCRIT 27.8 % (36.0-47.0); HEMOGLOBIN 9.3 g/dL (12.0-15.5); LYMPHOCYTES % (AUTO) 3.1 % (13-45); MEAN CORPUSCULAR HEMOGLOBIN 30.6 pg (27.0-33.4); MEAN CORPUSCULAR HGB CONC 33.4 g/dL (32.0-36.0); MEAN CORPUSCULAR VOLUME 92 fl (80-97); MONOCYTES % (AUTO) 8.8 % (3-13); PLATELET COUNT 173 10^3/uL (150-450); RED BLOOD COUNT 3.03 10^6/uL (3.72-5.28); SEGMENTED NEUTROPHILS % (AUTO) 87.6 % (42-78); TOTAL CELLS COUNTED % (AUTO) 100 %; WHITE BLOOD COUNT 9.7 10^3/uL (4.0-10.5)
[2018-08-01 12:41] LABS: ANION GAP 6 (5-19); BLOOD UREA NITROGEN 20 mg/dL (7-20); CALCIUM 9.8 mg/dL (8.4-10.2); CARBON DIOXIDE 30 mmol/L (22-30); CHLORIDE 106 mmol/L (98-107); GLUCOSE 95 mg/dL (75-110); POTASSIUM 4.5 mmol/L (3.6-5.0); SODIUM 141.7 mmol/L (137-145)
[2018-08-01] MEDS: ACETAMINOPHEN 325 MG TABLET PO PRN (12:48)
[2018-08-01] MEDS: HALOPERIDOL 1 MG TABLET PO PRN (12:48)
[2018-08-02] MEDS: IPRATROPIUM/ALBUTEROL 0.5-2.5 MG/3 ML AMPUL NEB SCH ×4 (03:00→19:14)
[2018-08-02] MEDS ORDERED: HALOPERIDOL 1 MG TABLET ONE (03:14)
[2018-08-02] MEDS: HALOPERIDOL 1 MG TABLET PO PRN ×2 (03:42→18:10)
[2018-08-02] MEDS: LEVOTHYROXINE SODIUM 0.112 MG TABLET PO SCH (05:33)
[2018-08-02] MEDS: LANSOPRAZOLE 30 MG TAB.RAP.DR PO SCH (05:33)
[2018-08-02] MEDS: PREDNISONE 20 MG TABLET PO SCH (11:01)
[2018-08-02] MEDS: POTASSIUM CHLORIDE 10 MEQ CAPSULE.ER PO SCH ×2 (11:01→18:10)
[2018-08-02] MEDS: GUAIFENESIN 600 MG TABLET.SA PO SCH ×2 (11:01→22:30)
[2018-08-02] MEDS: MULTIVITAMINS W-IRON TABLET, CHEWABLE PO SCH (11:01)
[2018-08-02] MEDS: CARVEDILOL 3.125 MG TABLET PO SCH ×2 (11:01→22:30)
[2018-08-02] MEDS: OLOPATADINE HCL 0.1% OPH SOLN 5 ML OU SCH ×2 (11:02→18:11)
[2018-08-02] MEDS: FLUTICASONE NASAL SPRAY 50 MCG/SPRY 120 SPRAY/16 GM NASL SCH ×2 (11:02→22:30)
[2018-08-02] MEDS: TIOTROPIUM BROMIDE DPI 5 CAP/KIT (18 MCG/CAP) IH SCH (11:02)
--- NOTE | 2018-08-02 17:08 | PDOC PROGRESS REPORT ---
Subjective Progress Note for:: 08/01/18 Subjective:: The patient is a 72-year-old female with past medical history of CHF, CAD, [place], hypertension, COPD who is O2 dependent, DM 2, hypothyroidism, remote lung cancer, GERD, arthritis, and anemia who was recently discharged to SNF after a prolonged admission for sepsis secondary to COPD exacerbation and pneumonia requiring intubation. The patient was readmitted 07/07/18 for acute on chronic respiratory failure secondary to COPD exacerbation, bilateral pleural effusions and incidentally found to have a new renal cell carcinoma. The patient was seen on morning rounds. She was resting in bed on supplemental oxygen via NC at 2 lpm. She was difficult to wake; but on waking said only "I feel like shit," and promptly falls back sleep. Nursing reports concern that patient's work of breathing appears worsened today with increased rhonchi. They do report that the patient was awake for most of the nigth which may account for her increased confusion and fatigue today. Later this afternoon, it was noted that the patient was awake and interacting well with PCT while eating her lunch; no longer appears to have tachypnea or labored breathing. Reason For Visit: RENAL MASS, PLEURAL EFF Physical Exam Vital Signs: Temp Pulse Resp BP Pulse Ox 98.4 F 100 17 100/54 L 100 08/01/18 15:28 08/01/18 15:28 08/01/18 15:28 08/01/18 15:28 08/01/18 15:28 Intake & Output 07/31/18 08/01/18 08/02/18 06:59 06:59 06:59 Intake Total 857 1142 Output Total 118 Balance 739 1142 Weight 66.5 kg 66.8 kg General appearance: PRESENT: disheveled, mild distress, well-developed, well- nourished Head exam: PRESENT: atraumatic, normocephalic Eye exam: PRESENT: conjunctiva pink, EOMI, PERRLA. ABSENT: scleral icterus Mouth exam: PRESENT: moist, tongue midline Neck exam: ABSENT: carotid bruit, JVD, lymphadenopathy, thyromegaly Respiratory exam: PRESENT: decreased breath sounds - Bibasilar, prolonged expiratory phas, rhonchi, symmetrical, wheezes - Slight expiratory. ABSENT: rales Cardiovascular exam: PRESENT: RRR, +S1, +S2. ABSENT: diastolic murmur, rubs, systolic murmur Vascular exam: PRESENT: normal capillary refill GI/Abdominal exam: PRESENT: normal bowel sounds, soft. ABSENT: distended, guarding, mass, organolmegaly, rebound, tenderness Rectal exam: PRESENT: deferred Extremities exam: PRESENT: full ROM. ABSENT: calf tenderness, clubbing, pedal edema Neurological exam: PRESENT: oriented to person, oriented to place, oriented to situation, CN II-XII grossly intact, other - Arousable; fatigued. ABSENT: motor sensory deficit Psychiatric exam: PRESENT: appropriate affect, normal mood. ABSENT: homicidal ideation, suicidal ideation Skin exam: PRESENT: dry, intact, warm. ABSENT: cyanosis, rash Results Laboratory Results: 08/01/18 11:45 08/01/18 11:45 08/01/18 08/01/18 08/01/18 10:28 11:45 11:45 WBC 9.7 RBC 3.03 L Hgb 9.3 L Hct 27.8 L MCV 92 MCH 30.6 MCHC 33.4 RDW 18.0 H Plt Count 173 Seg Neutrophils % 87.6 H Lymphocytes % 3.1 L Monocytes % 8.8 Eosinophils % 0.4 Basophils % 0.1 Absolute Neutrophils 8.5 H Absolute Lymphocytes 0.3 L Absolute Monocytes 0.9 Absolute Eosinophils 0.0 Absolute Basophils 0.0 Carbonic Acid 1.61 H HCO3/H2CO3 Ratio 18:1 ABG pH 7.36 ABG pCO2 53.4 H ABG pO2 151.3 H ABG HCO3 29.6 H ABG O2 Saturation 98.8 H ABG Base Excess 3.4 FiO2 2L Sodium 141.7 Potassium 4.5 Chloride 106 Carbon Dioxide 30 Anion Gap 6 BUN 20 Creatinine 0.64 Est GFR ( Amer) > 60 Est GFR (Non-Af Amer) > 60 Glucose 95 Calcium 9.8 07/07/18 07/07/18 16:45 18:53 Troponin I 0.035 0.031 NT-Pro-B Natriuret Pep 1850 H Impressions: Chest/Abdomen CTA 07/07/18 17:50 IMPRESSION: No pulmonary emboli. Moderate to large bilateral pleural effusions right greater than left. On the right side extension to the level of the hilum with there is dense consolidation and atelectasis but no definitive mass lesion. 2 cm solid mass arising from the right kidney. Suspicious for renal cell carcinoma. Thoracentesis Ultrasound 07/09/18 16:42 IMPRESSION: SUCCESSFUL THORACENTESIS USING ULTRASOUND GUIDANCE. Assessment & Plan - Diagnosis (1) Acute on chronic respiratory failure with hypoxia and hypercapnia Is this a current diagnosis for this admission?: Yes Plan: Early this morning, the patient was noted to have slight increased work of breathing with rhonchi and expiratory wheezing. Repeat chest x-ray was unchanged from previous; no evidence of acute cardiopulmonary process. ABG demonstrates continued chronic compensated respiratory acidosis with hypercapnia. CBC and BMP are unremarkable. Continue scheduled and as needed nebulizer treatments. Continue Spiriva and daily prednisone therapy; monitor closely for pulse steroid dosing. Mucinex twice daily. Recommend attempts to wean oxygen while awake secondary to elevated PO2 on ABG (151.3) Continued scheduled and as needed chest physiotherapy. Incentive spirometer and flutter valve to bedside. On reevaluation this afternoon, patient was noted to be significantly improved. She remains stable for discharge once home oxygen equipment has been obtained. (2) COPD exacerbation Is this a current diagnosis for this admission?: Yes Plan: COPD exacerbation has resolved. Plan as above. (3) Renal cell carcinoma Qualifiers: Laterality: right Qualified Code(s): C64.1 - Malignant neoplasm of right kidney, except renal pelvis Is this a current diagnosis for this admission?: Yes Plan: 2 cm right renal mass incidentally found on CT of the chest and abdomen. Concerning for renal cell carcinoma. Oncology was consulted; recommend outpatient follow-up. (4) Thrombocytopenia Is this a current diagnosis for this admission?: Yes Plan: Resolved; likely myelosuppresion from multiple acute illnesses. (5) Type 2 diabetes mellitus Qualifiers: Diabetes mellitus prison insulin use: without prison use Diabetes mellitus complication status: with unspecified complications Qualified Code(s): E11.8 - Type 2 diabetes mellitus with unspecified complications Is this a current diagnosis for this admission?: Yes Plan: The patient is placed on a consistent carb diet. Accu-Cheks before meals and at bedtime with Humalog for sliding scale coverage. Hypoglycemia protocol in place. (6) Hypothyroid Qualifiers: Hypothyroidism type: unspecified Qualified Code(s): E03.9 - Hypothyroidism, unspecified Is this a current diagnosis for this admission?: Yes Plan: Home dose levothyroxine is continued. 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 Avoid benzodiazepines as she is at high risk for respiratory depression. Supportive care. - Time Time Spent with patient: 25-34 minutes Medications reviewed and adjusted accordingly: Yes Anticipated discharge: Home with Homehealth Within: Other - once oxygen equipment is obtained.
--- NOTE | 2018-08-02 17:09 | PDOC PROGRESS REPORT ---
Subjective Progress Note for:: 08/02/18 Subjective:: The patient is a 72-year-old female with past medical history of CHF, CAD, [place], hypertension, COPD who is O2 dependent, DM 2, hypothyroidism, remote lung cancer, GERD, arthritis, and anemia who was recently discharged to SNF after a prolonged admission for sepsis secondary to COPD exacerbation and pneumonia requiring intubation. The patient was readmitted 07/07/18 for acute on chronic respiratory failure secondary to COPD exacerbation, bilateral pleural effusions and incidentally found to have a new renal cell carcinoma. The patient was seen on morning rounds. She was resting in bed on supplemental oxygen via NC at 2 lpm. She is awake, alert and oriented to self, place, time, portions of situation, but clearly remembers who I am. She states that she is feeling well today; slept "great" overnight. She also reports improved breathing after a productive cough this morning with a large amount of sputum production. She denies fever, chills, headache, chest pain, palpitations, dyspnea at present, orthopnea, abdominal pain, nausea vomiting and diarrhea. She has no questions or concerns at this time. No concerns per nursing Reason For Visit: RENAL MASS, PLEURAL EFF Physical Exam Vital Signs: Temp Pulse Resp BP Pulse Ox 98.1 F 112 H 18 111/59 L 96 08/02/18 15:14 08/02/18 15:14 08/02/18 15:14 08/02/18 15:14 08/02/18 15:46 Intake & Output 08/01/18 08/02/18 08/03/18 06:59 06:59 06:59 Intake Total 1142 630 Balance 1142 630 Weight 66.8 kg 68.2 kg General appearance: PRESENT: no acute distress, well-developed, well-nourished Head exam: PRESENT: atraumatic, normocephalic Eye exam: PRESENT: conjunctiva pink, EOMI, PERRLA. ABSENT: scleral icterus Ear exam: PRESENT: normal external ear exam Mouth exam: PRESENT: moist, tongue midline Neck exam: ABSENT: carotid bruit, JVD, lymphadenopathy, thyromegaly Respiratory exam: PRESENT: clear to auscultation jeff, prolonged expiratory phas, rhonchi - Slight, symmetrical, unlabored. ABSENT: rales, wheezes Cardiovascular exam: PRESENT: RRR. ABSENT: diastolic murmur, rubs, systolic murmur Pulses: PRESENT: normal dorsalis pedis pul Vascular exam: PRESENT: normal capillary refill GI/Abdominal exam: PRESENT: normal bowel sounds, soft. ABSENT: distended, guarding, mass, organolmegaly, rebound, tenderness Rectal exam: PRESENT: deferred Extremities exam: PRESENT: full ROM. ABSENT: calf tenderness, clubbing, pedal edema Neurological exam: PRESENT: alert, awake, oriented to person, oriented to place, oriented to time, oriented to situation, CN II-XII grossly intact. ABSENT: motor sensory deficit Psychiatric exam: PRESENT: appropriate affect, normal mood. ABSENT: homicidal ideation, suicidal ideation Skin exam: PRESENT: dry, intact, warm. ABSENT: cyanosis, rash Results Laboratory Results: 08/01/18 11:45 08/01/18 11:45 07/07/18 07/07/18 16:45 18:53 Troponin I 0.035 0.031 NT-Pro-B Natriuret Pep 1850 H Impressions: Chest/Abdomen CTA 07/07/18 17:50 IMPRESSION: No pulmonary emboli. Moderate to large bilateral pleural effusions right greater than left. On the right side extension to the level of the hilum with there is dense consolidation and atelectasis but no definitive mass lesion. 2 cm solid mass arising from the right kidney. Suspicious for renal cell carcinoma. Thoracentesis Ultrasound 07/09/18 16:42 IMPRESSION: SUCCESSFUL THORACENTESIS USING ULTRASOUND GUIDANCE. Assessment & Plan - Diagnosis (1) Acute on chronic respiratory failure with hypoxia and hypercapnia Is this a current diagnosis for this admission?: Yes Plan: Improved; patient appears to have returned to her baseline respiratory function. Repeat chest x-ray was unchanged from previous; no evidence of acute cardiopulmonary process. ABG demonstrated continued chronic compensated respiratory acidosis with hypercapnia. CBC and BMP are unremarkable. Continue scheduled and as needed nebulizer treatments. Continue Spiriva and daily prednisone therapy. Mucinex twice daily. Recommend attempts to wean oxygen while awake secondary to elevated PO2 on ABG (151.3) Continued scheduled and as needed chest physiotherapy. Incentive spirometer and flutter valve to bedside. Overnight pulse oximetry study. (2) COPD exacerbation Is this a current diagnosis for this admission?: Yes Plan: COPD exacerbation has resolved. Plan as above. (3) Renal cell carcinoma Qualifiers: Laterality: right Qualified Code(s): C64.1 - Malignant neoplasm of right kidney, except renal pelvis Is this a current diagnosis for this admission?: Yes Plan: 2 cm right renal mass incidentally found on CT of the chest and abdomen. Concerning for renal cell carcinoma. Oncology was consulted; recommend outpatient follow-up. (4) Thrombocytopenia Is this a current diagnosis for this admission?: Yes Plan: Resolved; likely myelosuppresion from multiple acute illnesses. (5) Type 2 diabetes mellitus Qualifiers: Diabetes mellitus keno terminal operator insulin use: without keno terminal operator use Diabetes mellitus complication status: with unspecified complications Qualified Code(s): E11.8 - Type 2 diabetes mellitus with unspecified complications Is this a current diagnosis for this admission?: Yes Plan: The patient is placed on a consistent carb diet. Accu-Cheks before meals and at bedtime with Humalog for sliding scale coverage. Hypoglycemia protocol in place. (6) Hypothyroid Qualifiers: Hypothyroidism type: unspecified Qualified Code(s): E03.9 - Hypothyroidism, unspecified Is this a current diagnosis for this admission?: Yes Plan: Home dose levothyroxine is continued. 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 Avoid benzodiazepines as she is at high risk for respiratory depression. Supportive care. - Time Time Spent with patient: 15-24 minutes Medications reviewed and adjusted accordingly: Yes Anticipated discharge: Home Within: Other - Pending oxygen equipment arrival
[2018-08-03] MEDS ORDERED: HALOPERIDOL 1 MG TABLET ONE (01:56)
[2018-08-03] MEDS: HALOPERIDOL 1 MG TABLET PO PRN (02:04)
[2018-08-03] MEDS: IPRATROPIUM/ALBUTEROL 0.5-2.5 MG/3 ML AMPUL NEB SCH ×4 (02:13→19:32)
[2018-08-03] MEDS: LANSOPRAZOLE 30 MG TAB.RAP.DR PO SCH (06:23)
[2018-08-03] MEDS: LEVOTHYROXINE SODIUM 0.112 MG TABLET PO SCH (06:23)
[2018-08-03] MEDS: PREDNISONE 20 MG TABLET PO SCH (08:13)
[2018-08-03] MEDS: POTASSIUM CHLORIDE 10 MEQ CAPSULE.ER PO SCH ×2 (10:23→17:28)
[2018-08-03] MEDS: FLUTICASONE NASAL SPRAY 50 MCG/SPRY 120 SPRAY/16 GM NASL SCH ×2 (10:23→22:56)
[2018-08-03] MEDS: OLOPATADINE HCL 0.1% OPH SOLN 5 ML OU SCH ×2 (10:23→17:29)
[2018-08-03] MEDS: GUAIFENESIN 600 MG TABLET.SA PO SCH ×2 (10:24→22:55)
[2018-08-03] MEDS: MULTIVITAMINS W-IRON TABLET, CHEWABLE PO SCH (10:24)
[2018-08-03] MEDS: TIOTROPIUM BROMIDE DPI 5 CAP/KIT (18 MCG/CAP) IH SCH (10:24)
[2018-08-03] MEDS: CARVEDILOL 3.125 MG TABLET PO SCH ×2 (10:24→22:55)
--- NOTE | 2018-08-03 16:20 | PDOC PROGRESS REPORT ---
Subjective Progress Note for:: 08/03/18 Subjective:: The patient is a 72-year-old female with past medical history of CHF, CAD, IL, hypertension, COPD who is O2 dependent, DM 2, hypothyroidism, remote lung cancer, GERD, arthritis, and anemia who was recently discharged to SNF after a prolonged admission for sepsis secondary to COPD exacerbation and pneumonia requiring intubation. The patient was readmitted 07/07/18 for acute on chronic respiratory failure secondary to COPD exacerbation, bilateral pleural effusions and incidentally found to have a new renal cell carcinoma. The patient was seen on morning rounds. She was resting in bed on room air. She is awake, alert and oriented to self, place, time, portions of situation, and clearly remembers who I am. She states that she is feeling well today and is asking to go home. She denies fever, chills, headache, chest pain, palpitations, dyspnea, orthopnea, cough, abdominal pain, nausea vomiting and diarrhea. She has no questions or concerns at this time. No concerns per nursing Reason For Visit: RENAL MASS, PLEURAL EFF Physical Exam Vital Signs: Temp Pulse Resp BP Pulse Ox 97.8 F 99 16 119/88 H 97 08/03/18 11:53 08/03/18 13:52 08/03/18 13:52 08/03/18 11:53 08/03/18 13:52 Pulse Oximeter Nocturnal Start: 08/02/18 16:13 Freq: RTQ4 Status: Complete Protocol: Document 08/03/18 07:53 LDA (Rec: 08/03/18 07:54 LDA [email or web address]) Nocturnal Pulse Oximetry Equipment Usage Equipment Discontinued Nocturnal Spo2 Charge Charge Now Continuous SpO2 Machine # 5 Intake & Output 08/02/18 08/03/18 08/04/18 06:59 06:59 06:59 Intake Total 630 530 Balance 630 530 Weight 68.2 kg 65.7 kg General appearance: PRESENT: no acute distress, well-developed, well-nourished Head exam: PRESENT: atraumatic, normocephalic Eye exam: PRESENT: conjunctiva pink, EOMI, PERRLA. ABSENT: scleral icterus Ear exam: PRESENT: normal external ear exam Mouth exam: PRESENT: moist, tongue midline Neck exam: ABSENT: carotid bruit, JVD, lymphadenopathy, thyromegaly Respiratory exam: PRESENT: prolonged expiratory phas, rhonchi, symmetrical, unlabored. ABSENT: rales, wheezes Cardiovascular exam: PRESENT: RRR, +S1, +S2. ABSENT: diastolic murmur, rubs, systolic murmur Pulses: PRESENT: normal dorsalis pedis pul Vascular exam: PRESENT: normal capillary refill GI/Abdominal exam: PRESENT: normal bowel sounds, soft. ABSENT: distended, guarding, mass, organolmegaly, rebound, tenderness Rectal exam: PRESENT: deferred Extremities exam: PRESENT: full ROM. ABSENT: calf tenderness, clubbing, pedal edema Neurological exam: PRESENT: alert, awake, oriented to person, oriented to place, oriented to time, oriented to situation, CN II-XII grossly intact. ABSENT: motor sensory deficit Psychiatric exam: PRESENT: appropriate affect, normal mood. ABSENT: homicidal ideation, suicidal ideation Skin exam: PRESENT: dry, intact, warm. ABSENT: cyanosis, rash Results Laboratory Results: 08/01/18 11:45 08/01/18 11:45 07/07/18 07/07/18 16:45 18:53 Troponin I 0.035 0.031 NT-Pro-B Natriuret Pep 1850 H Impressions: Chest/Abdomen CTA 07/07/18 17:50 IMPRESSION: No pulmonary emboli. Moderate to large bilateral pleural effusions right greater than left. On the right side extension to the level of the hilum with there is dense consolidation and atelectasis but no definitive mass lesion. 2 cm solid mass arising from the right kidney. Suspicious for renal cell carcinoma. Thoracentesis Ultrasound 07/09/18 16:42 IMPRESSION: SUCCESSFUL THORACENTESIS USING ULTRASOUND GUIDANCE. Assessment & Plan - Diagnosis (1) Acute on chronic respiratory failure with hypoxia and hypercapnia Is this a current diagnosis for this admission?: Yes Plan: Improved; patient appears to have returned to her baseline respiratory function. Repeat chest x-ray was unchanged from previous; no evidence of acute cardiopulmonary process. ABG demonstrated continued chronic compensated respiratory acidosis with hypercapnia. CBC and BMP are unremarkable. Overnight continuous pulse oximetry study completed while on room air; report placed in paper chart. The patient had numerous desaturations overnight; lowest to 73%. Her desaturation events ranged from 73-88%; average length of time 30 seconds. She averaged 1 desaturation per hour over the course of the study. Continue scheduled and as needed nebulizer treatments. Continue Spiriva and daily prednisone therapy. Mucinex twice daily. We will continue to wean oxygen while awake; patient requires oxygen while sleeping at 2 L/min. Continued scheduled and as needed chest physiotherapy. Incentive spirometer and flutter valve to bedside. (2) COPD exacerbation Is this a current diagnosis for this admission?: Yes Plan: COPD exacerbation has resolved. Plan as above. (3) Renal cell carcinoma Qualifiers: Laterality: right Qualified Code(s): C64.1 - Malignant neoplasm of right kidney, except renal pelvis Is this a current diagnosis for this admission?: Yes Plan: 2 cm right renal mass incidentally found on CT of the chest and abdomen. Concerning for renal cell carcinoma. Oncology was consulted; recommend outpatient follow-up. (4) Thrombocytopenia Is this a current diagnosis for this admission?: Yes Plan: Resolved; likely myelosuppresion from multiple acute illnesses. 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 Accu-Cheks before meals and at bedtime with Humalog for sliding scale coverage. Hypoglycemia protocol in place. (6) Hypothyroid Qualifiers: Hypothyroidism type: unspecified Qualified Code(s): E03.9 - Hypothyroidism, unspecified Is this a current diagnosis for this admission?: Yes Plan: Home dose levothyroxine is continued. 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 Avoid benzodiazepines as she is at high risk for respiratory depression. Supportive care. - Time Time Spent with patient: Less than 15 minutes Anticipated discharge: Home Within: Other - Once oxygen equipment is available
[2018-08-04] MEDS: IPRATROPIUM/ALBUTEROL 0.5-2.5 MG/3 ML AMPUL NEB SCH ×2 (01:48→08:03)
[2018-08-04] MEDS: LEVOTHYROXINE SODIUM 0.112 MG TABLET PO SCH (06:22)
[2018-08-04] MEDS: LANSOPRAZOLE 30 MG TAB.RAP.DR PO SCH (06:22)
[2018-08-04] MEDS: POTASSIUM CHLORIDE 10 MEQ CAPSULE.ER PO SCH (11:04)
[2018-08-04] MEDS: GUAIFENESIN 600 MG TABLET.SA PO SCH (11:04)
[2018-08-04] MEDS: PREDNISONE 20 MG TABLET PO SCH (11:04)
[2018-08-04] MEDS: MULTIVITAMINS W-IRON TABLET, CHEWABLE PO SCH (11:04)
[2018-08-04] MEDS: OLOPATADINE HCL 0.1% OPH SOLN 5 ML OU SCH (11:05)
[2018-08-04] MEDS: FLUTICASONE NASAL SPRAY 50 MCG/SPRY 120 SPRAY/16 GM NASL SCH (11:05)
[2018-08-04] MEDS: CARVEDILOL 3.125 MG TABLET PO SCH (11:17)
[2018-08-04] MEDS: TIOTROPIUM BROMIDE DPI 5 CAP/KIT (18 MCG/CAP) IH SCH (11:18)
[2018-08-04 12:59] VITALS: BP 121/64
== END 2018-08-04 13:49 | disposition home health service (06) | DRG 189 ==
LOC: ER 14:57 → EH 19:32 → 3W 22:37 → 4W 07-15 23:21 → 4N 07-20 17:18 → UNDODISIN 07-21 21:30 → 4N 07-21 22:55
PROVIDERS: ADMIT Internal Medicine; ATTEND Internal Medicine
PROC: 5A09357 Assistance with Respiratory Ventilation, Less than 24 Consecutive Hours, Continuous Positive Airway Pressure (ICD-10-PCS; 2018-07-07)
PROC: 0W993ZZ Drainage of Right Pleural Cavity, Percutaneous Approach (ICD-10-PCS; principal; 2018-07-09)
DX: J96.22 Acute and chronic respiratory failure with hypercapnia (principal); J44.1 Chronic obstructive pulmonary disease with (acute) exacerbation; J90 Pleural effusion, not elsewhere classified; C64.1 Malignant neoplasm of right kidney, except renal pelvis; F05 Delirium due to known physiological condition; J96.21 Acute and chronic respiratory failure with hypoxia; D69.6 Thrombocytopenia, unspecified; E87.6 Hypokalemia; E11.9 Type 2 diabetes mellitus without complications; E03.9 Hypothyroidism, unspecified; F03.90 Unspecified dementia, unspecified severity, without behavioral disturbance, psychotic disturbance, mood disturbance, and anxiety; R19.7 Diarrhea, unspecified; G72.9 Myopathy, unspecified; I25.10 Atherosclerotic heart disease of native coronary artery without angina pectoris; I25.2 Old myocardial infarction; I10 Essential (primary) hypertension; Z99.81 Dependence on supplemental oxygen; K21.9 Gastro-esophageal reflux disease without esophagitis; M19.90 Unspecified osteoarthritis, unspecified site; D64.9 Anemia, unspecified; Z88.1 Allergy status to other antibiotic agents; Z85.841 Personal history of malignant neoplasm of brain; Z85.118 Personal history of other malignant neoplasm of bronchus and lung; Z90.49 Acquired absence of other specified parts of digestive tract; N30.90 Cystitis, unspecified without hematuria; B96.89 Other specified bacterial agents as the cause of diseases classified elsewhere
CPT/HCPCS: 32555; 36415; 36600; 71045; 71275; 80048; 80053; 80307; 81001; 82150; 82530; 82533; 82570; 82803; 82945; 82962; 83615; 83735; 83880; 84134; 84157; 84484; 85025; 85027; 85610; 85730; 87015; 87040; 87070; 87075; 87077; 87086; 87088; 87101; 87116; 87186; 87205; 87206; 87493; 89050; 93005; 93010; 94640; 94660; 94667; 94668; 94762; 96374; 96376; 99285; G0378; G8978-GP; G8979-GP; J1610; J1815; J1940; J2060; J3475; J3490; J7512; J7620

== ENCOUNTER 2018-08-10 10:36 | Emergency (ER) | payer MEDICARE, OTHER ==
--- NOTE | 2018-08-10 10:53 | ER Document Report ---
ED General - General Stated Complaint: ALL OVER PAIN Time Seen by Provider: 08/10/18 10:44 Mode of Arrival: Ambulatory Information source: Patient Notes: Chief complaint: Medication needs to be adjusted History of complain:( obtained from----patient) 72 years old female who was discharged from the hospital a few days ago, was sent back by the son to the ED because he does not agree with her discharge medications. The medications need to be reevaluated. He has been withholding certain medications from the patie nt. He is getting only potassium, prednisolone, carvedilol, and breathing treatment. Status of the patient has not changed no acute complaints. Onset: Gradual Duration: Gradual Severity: Moderate Quality: Unknown Context: Unknown Exacerbating factor and relieving factors: Unknown REVIEW OF SYSTEMS: Not possible to obtain due to her mental status. Dementia PHYSICAL EXAMINATION: GENERAL: in no acute distress. HEAD: Atraumatic, normocephalic. EYES: Pupils equal round and reactive to light, extraocular movements intact, conjunctiva are normal. ENT: Nares patent, oropharynx clear without exudates. Moist mucous membranes. NECK: Normal range of motion, supple without lymphadenopathy LUNGS: Breath sounds clear to auscultation bilaterally and equal. No wheezes rales or rhonchi. HEART: Regular rate and rhythm without murmurs ABDOMEN: Soft, nontender, nondistended abdomen. No guarding, no rebound. No masses appreciated. Examination of genitals-deferred NEUROLOGICAL: Alert, not oriented. PSYCH: Normal mood, normal affect. SKIN: Warm, Dry, normal turgor, no rashes or lesions noted. Dictation was performed using [employer] voice recognition software TRAVEL OUTSIDE OF THE [place] IN LAST 30 DAYS: No - HPI Notes: Dictated - Related Data Allergies/Adverse Reactions: azithromycin Allergy (Verified 06/20/18 20:48) amoxicillin [Amoxicillin] Adverse Reaction (Verified 06/20/18 20:48) visual hallucinations erythromycin base [Erythromycin Base] Adverse Reaction (Verified 06/20/18 20:48) visual hallucinations Potassium Clavulanate * [From Augmentin] Adverse Reaction (Verified 06/20/18 20:48) visual hallucinations Past Medical History - Social History Smoking Status: Former Smoker Frequency of alcohol use: None Drug Abuse: None Lives with: Family Family History: Reviewed & Not Pertinent, COPD, Malignancy - Lung cancer - Past Medical History Cardiac Medical History: Reports: Hx Congestive Heart Failure, Hx Coronary Artery Disease, Hx Heart Attack, Hx Hypertension Denies: Hx DVT, Hx Hypercholesterolemia, Hx Pulmonary Embolism Pulmonary Medical History: Reports: Hx Asthma, Hx Bronchitis, Hx COPD - 2 L nasal home oxygen, Hx Pneumonia, Hx Respiratory Failure - Chronic respiratory failure Denies: Hx Sleep Apnea, Hx Tuberculosis Neurological Medical History: Denies: Hx Seizures Endocrine Medical History: Reports: Hx Diabetes Mellitus Type 2, Hx Hypothyroidism. 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 Denies: Hx Cirrhosis, Hx Hepatitis, Hx Ulcer Musculoskeletal Medical History: Reports Hx Arthritis, Denies Hx Multiple Sclerosis, Reports Hx Musculoskeletal Deformity, Reports Hx Musculoskeletal Trauma Psychiatric Medical History: Reports: Hx Dementia, Hx Depression Denies: Hx Bipolar Disorder, Hx Schizophrenia Infectious Medical History: Reports: Hx C-Diff. Denies: Hx Hepatitis Past Surgical History: Reports: Hx Cholecystectomy, Hx Orthopedic Surgery - Foot surgery, Other - cataract bilateral - Immunizations Hx Diphtheria, Pertussis, Tetanus Vaccination: Yes Hx Pneumococcal Vaccination: 08/30/12 Review of Systems - Review of Systems Notes: Dictated Physical Exam - Vital signs Vitals: Temp Pulse Resp BP Pulse Ox 97.4 F 86 22 H 114/60 100 08/10/18 10:44 08/10/18 10:44 08/10/18 10:44 08/10/18 10:44 08/10/18 10:44 - Notes Notes: Dictated Course - Vital Signs Vital signs: Temp Pulse Resp BP Pulse Ox 97.4 F 86 26 H 139/79 H 99 08/10/18 10:44 08/10/18 10:44 08/10/18 18:01 08/10/18 17:03 08/10/18 17:03 - Laboratory Result Diagrams: 08/10/18 14:02 08/10/18 14:02 Laboratory results interpreted by me: 08/10/18 08/10/18 08/10/18 14:02 14:02 14:02 WBC 10.9 H RBC 3.10 L Hgb 9.5 L Hct 28.3 L RDW 18.3 H Seg Neuts % (Manual) 93 H Lymphocytes % (Manual) 1 L Monocytes % (Manual) 2 L Abs Neuts (Manual) 10.6 H Abs Lymphs (Manual) 0.1 L ABG pO2 ABG HCO3 ABG Total CO2 ABG O2 Saturation Potassium 5.8 H Carbon Dioxide 35 H Anion Gap 0 L BUN 21 H Glucose 120 H POC Glucose Total Protein 5.5 L Albumin 3.2 L Free T3 pg/mL 1.97 L 08/10/18 08/10/18 14:21 16:00 WBC RBC Hgb Hct RDW Seg Neuts % (Manual) Lymphocytes % (Manual) Monocytes % (Manual) Abs Neuts (Manual) Abs Lymphs (Manual) ABG pO2 109.3 H ABG HCO3 29.5 H ABG Total CO2 30.8 H ABG O2 Saturation 98.1 H Potassium Carbon Dioxide Anion Gap BUN Glucose POC Glucose 122 H Total Protein Albumin Free T3 pg/mL - Diagnostic Test Radiology reviewed: Reports reviewed - CT of the brain showed atrophy of the brain Chest x-ray did not find any acute findings. According to radiology - EKG Interpretation by In EKG shows normal: Sinus rhythm - Electrocardiogram shows sinus rhythm at the rat e of 95 bpm normal axis no acute ST-T wave changes. Discharge - Discharge Clinical Impression: COPD exacerbation Chronic back pain Qualifiers: Back pain location: back pain in unspecified location Back pain laterality: midline Qualified Code(s): M54.9 - Dorsalgia, unspecified; G89.29 - Other chronic pain Condition: Fair Disposition: HOME, SELF-CARE Instructions: Chronic Obstructive Lung Disease ([facility]) Referrals: BAKARI VELARDE MD [Primary Care Provider] - Follow up as needed
[2018-08-10 14:25] LABS: HEMATOCRIT 28.3 % (36.0-47.0); HEMOGLOBIN 9.5 g/dL (12.0-15.5); MEAN CORPUSCULAR HEMOGLOBIN 30.6 pg (27.0-33.4); MEAN CORPUSCULAR HGB CONC 33.5 g/dL (32.0-36.0); MEAN CORPUSCULAR VOLUME 91 fl (80-97); PLATELET COUNT 230 10^3/uL (150-450); RED CELL DISTRIBUTION WIDTH 18.3 % (11.5-14.0); WHITE BLOOD COUNT 10.9 10^3/uL (4.0-10.5)
--- NOTE | 2018-08-10 14:39 | RADIOLOGY REPORT (SQ) ---
EXAM DESCRIPTION: CT HEAD WITHOUT COMPLETED DATE/TIME: 08/10/2018 2:28 pm REASON FOR STUDY: Change in mental status COMPARISON: CT and MRI 06/24/2018 TECHNIQUE: Axial images acquired through the brain without intravenous contrast. Images reviewed wi th bone, brain and subdural windows. Additional sagittal and coronal reconstructions were generated. Images stored on PACS. All CT scanners at this facility use dose modulation, iterative reconstruction, and/or weight based d osing when appropriate to reduce radiation dose to as low as reasonably achievable (ALARA). [facility]: Dose Right [facility]: CareDose [facility]: Dose Right [facility]: Teradose 4D [facility]: 3D Data RADIATION DOSE: CT Rad equipment meets quality standard of care and radiation dose reduction techniq ues were employed. CTDIvol: 48.6 mGy. DLP: 904 mGy-cm. mGy. LIMITATIONS: None. FINDINGS: VENTRICLES: Prominent ventricles secondary to involutional atrophy. CEREBRUM: Cortical atrophy. No masses. No hemorrhage. No midline shift. No evidence for acute inf arction. Extensive areas of low density in the white matter most likely chronic small vessel ischemic changes. CEREBELLUM: No masses. No hemorrhage. No alteration of density. No evidence for acute infarction. EXTRAAXIAL SPACES: No fluid collections. No masses. ORBITS AND GLOBE: No intra- or extraconal masses. Normal contour of globe without masses. CALVARIUM: No fracture. PARANASAL SINUSES: No fluid or mucosal thickening. SOFT TISSUES: No mass or hematoma. OTHER: No other significant finding. IMPRESSION: MICROVASCULAR ISCHEMIA AND GENERALIZED ATROPHY. NO ACUTE IMAGING FINDINGS IN THE BRAIN EVIDENCE OF ACUTE STROKE: NO. COMMENT: Quality ID # [id number]: Final reports with documentation of one or more dose reduction techniques (e.g., Automated exposure control, adjustment of the mA and/or kV according to patient size, use of iterative reconstruction technique) TECHNICAL DOCUMENTATION: JOB ID: [id number] [employer]- All Rights Reserved Reading location - IP/workstation name: [email or web address]
[2018-08-10 14:51] LABS: ALANINE AMINOTRANSFERASE 37 U/L (9-52); ALBUMIN 3.2 g/dL (3.5-5.0); ALKALINE PHOSPHATASE 60 U/L (38-126); ASPARTATE AMINO TRANSFERASE 22 U/L (14-36); BILIRUBIN,DIRECT 0.2 mg/dL (0.0-0.4); BILIRUBIN,TOTAL 0.3 mg/dL (0.2-1.3); BLOOD UREA NITROGEN 21 mg/dL (7-20); CALCIUM 9.6 mg/dL (8.4-10.2); CHLORIDE 105 mmol/L (98-107); GLUCOSE 120 mg/dL (75-110); POTASSIUM 5.8 mmol/L (3.6-5.0); TOTAL PROTEIN 5.5 g/dL (6.3-8.2)
[2018-08-10 14:56] LABS: ABSOLUTE LYMPHOCYTES# (MANUAL) 0.1 10^3/uL (0.5-4.7); ABSOLUTE MONOCYTES # (MANUAL) 0.2 10^3/uL (0.1-1.4); ABSOLUTE NEUTROPHILS# (MANUAL) 10.6 10^3/uL (1.7-8.2); BAND NEUTROPHILS % (MANUAL) 4 % (3-5); BASOPHILS % (MANUAL) 0 % (0-2); CARBON DIOXIDE 35 mmol/L (22-30); EOSINOPHILS % (MANUAL) 0 % (0-6); LYMPHOCYTES % (MANUAL) 1 % (13-45); MONOCYTES % (MANUAL) 2 % (3-13); SEGMENTED NEUTROPHILS % (MAN) 93 % (42-78); SODIUM 140.4 mmol/L (137-145); TOTAL CELLS COUNTED 100
[2018-08-10 14:57] LABS: ANION GAP 0 (5-19)
[2018-08-10 15:00] LABS: POLYCHROMASIA SLIGHT
[2018-08-10 15:01] LABS: ANISOCYTOSIS 2+; OVALOCYTES 1+; PLATELET COMMENT ADEQUATE; POIKILOCYTOSIS 1+; SCHISTOCYTES SLIGHT; TEAR DROP CELLS 1+
[2018-08-10 15:08] LABS: FREE T3 1.97 pg/mL (2.77-5.27); FREE T4 (FREE THYROXINE) 0.8 ng/dL (0.78-2.19)
[2018-08-10] MEDS ORDERED: LIDOCAINE 1% INJ-PF (10 MG/ML) 30 ML SDV ONE (15:16)
[2018-08-10 15:38] LABS: THYROID STIMULATING HORMONE 2.81 uIU/mL (0.47-4.68)
[2018-08-10 16:24] LABS: ARTERIAL BLOOD BASE EXCESS 4.6 mmol/L; ARTERIAL BLOOD FIO2 3L; ARTERIAL BLOOD H2CO3 1.35 mmol/L (1.05-1.35); ARTERIAL BLOOD HCO3 29.5 mmol/L (20-24); ARTERIAL BLOOD O2 SATURATION 98.1 % (94-98); ARTERIAL BLOOD PCO2 44.9 mmHg (35-45); ARTERIAL BLOOD PH 7.44 (7.35-7.45); ARTERIAL BLOOD PO2 109.3 mmHg (80-100); ARTERIAL BLOOD TOTAL CO2 30.8 mmol/L (21-25)
[2018-08-10] MEDS ORDERED: SODIUM POLYSTYRENE SULFONATE 15 GM/60 ML PO ONE (16:45)
--- NOTE | 2018-08-10 17:43 | EKG REPORT ---
SEVERITY:- ABNORMAL ECG - SINUS RHYTHM INCOMPLETE RIGHT BUNDLE BRANCH BLOCK LOW VOLTAGE IN FRONTAL LEADS : Confirmed by: Issa Martinez MD 10-Aug-2018 17:42:20
--- NOTE | 2018-08-10 17:44 | RADIOLOGY REPORT (SQ) ---
EXAM DESCRIPTION: CHEST SINGLE VIEW COMPLETED DATE/TIME: 08/10/2018 5:36 pm REASON FOR STUDY: Cough COMPARISON: 08/01/2018 CT scan 07/07/2018 EXAM PARAMETERS: NUMBER OF VIEWS: One view. TECHNIQUE: Single frontal radiographic view of the chest acquired. RADIATION DOSE: NA LIMITATIONS: None. FINDINGS: LUNGS AND PLEURA: No opacities, masses or pneumothorax. No pleural effusion. MEDIASTINUM AND HILAR STRUCTURES: Persistent prominence of the right hilum. HEART AND VASCULAR STRUCTURES: Heart normal in size. Normal vasculature. BONES: No acute findings. HARDWARE: None in the chest. OTHER: No other significant finding. IMPRESSION: No acute parenchymal findings. Persistent prominence of the right hilum as described on the previous CT. TECHNICAL DOCUMENTATION: JOB ID: [id number] [employer]- All Rights Reserved Reading location - IP/workstation name: [email or web address]
[2018-08-10 20:57] VITALS: BP 124/80
== END 2018-08-10 20:10 | disposition home or self-care (01) ==
LOC: ER 10:36
DX: J44.1 Chronic obstructive pulmonary disease with (acute) exacerbation (principal); G89.29 Other chronic pain; M54.9 Dorsalgia, unspecified; M79.10 Myalgia, unspecified site; I50.9 Heart failure, unspecified; I25.10 Atherosclerotic heart disease of native coronary artery without angina pectoris; I11.0 Hypertensive heart disease with heart failure; J44.9 Chronic obstructive pulmonary disease, unspecified; E11.9 Type 2 diabetes mellitus without complications; E03.9 Hypothyroidism, unspecified; Z88.3 Allergy status to other anti-infective agents; Z88.0 Allergy status to penicillin; Z90.49 Acquired absence of other specified parts of digestive tract; I25.2 Old myocardial infarction
CPT/HCPCS: 93005; 36600; 99284; 36415; 84439; 82962; 82803; 84443; 85025; 80053; 84481; 83036; 71045; 70450; 93010; C1751; J3490

== ENCOUNTER 2018-08-18 16:11 | Emergency (ER) | payer MEDICARE, OTHER ==
[2018-08-18] MEDS ORDERED: IPRATROPIUM/ALBUTEROL 0.5-2.5 MG/3 ML AMPUL NEB ONE (16:37)
[2018-08-18 17:11] LABS: ABSOLUTE LYMPHOCYTES (AUTO) 0.5 10^3/uL (0.5-4.7); ABSOLUTE MONOCYTES (AUTO) 0.3 10^3/uL (0.1-1.4); ABSOLUTE NEUT (AUTO) 8.1 10^3/uL (1.7-8.2); BASOPHILS % (AUTO) 0.1 % (0-2); EOSINOPHILS % (AUTO) 0.3 % (0-6); HEMATOCRIT 29.5 % (36.0-47.0); HEMOGLOBIN 9.7 g/dL (12.0-15.5); LYMPHOCYTES % (AUTO) 5.7 % (13-45); MEAN CORPUSCULAR HEMOGLOBIN 31.3 pg (27.0-33.4); MONOCYTES % (AUTO) 3.3 % (3-13); PLATELET COUNT 196 10^3/uL (150-450); RED CELL DISTRIBUTION WIDTH 18.8 % (11.5-14.0); SEGMENTED NEUTROPHILS % (AUTO) 90.6 % (42-78); TOTAL CELLS COUNTED % (AUTO) 100 %
[2018-08-18 17:21] LABS: MEAN CORPUSCULAR VOLUME 95 fl (80-97)
[2018-08-18 17:29] LABS: ALANINE AMINOTRANSFERASE 29 U/L (9-52); ALBUMIN 3.3 g/dL (3.5-5.0); ALKALINE PHOSPHATASE 70 U/L (38-126); ASPARTATE AMINO TRANSFERASE 17 U/L (14-36); BILIRUBIN,DIRECT 0.2 mg/dL (0.0-0.4); BILIRUBIN,TOTAL 0.2 mg/dL (0.2-1.3); BLOOD UREA NITROGEN 18 mg/dL (7-20); GLUCOSE 171 mg/dL (75-110); LIPASE 178.2 U/L (23-300); POTASSIUM 4.8 mmol/L (3.6-5.0); TOTAL PROTEIN 5.6 g/dL (6.3-8.2)
[2018-08-18 17:30] LABS: APPEARANCE,URINE CLOUDY; BILIRUBIN,URINE NEGATIVE (NEGATIVE); COLOR,URINE YELLOW; GLUCOSE, URINE NEGATIVE (NEGATIVE); KETONES,URINE NEGATIVE (NEGATIVE); LEUKOCYTE ESTERASE,URINE LARGE (NEGATIVE); NITRITE,URINE POSITIVE (NEGATIVE); PROTEIN,URINE NEGATIVE (NEGATIVE); URINE SPECIFIC GRAVITY 1.014; UROBILINOGEN,URINE NEGATIVE mg/dL (<2.0)
[2018-08-18 17:34] LABS: CARBON DIOXIDE 34 mmol/L (22-30); CHLORIDE 102 mmol/L (98-107); SODIUM 140.4 mmol/L (137-145)
[2018-08-18 17:35] LABS: ANION GAP 5 (5-19)
--- NOTE | 2018-08-18 18:09 | RADIOLOGY REPORT (SQ) ---
EXAM DESCRIPTION: CHEST SINGLE VIEW COMPLETED DATE/TIME: 08/18/2018 6:00 pm REASON FOR STUDY: cough COMPARISON: 08/10/2018 TECHNIQUE: Single frontal radiographic view of the chest acquired. NUMBER OF VIEWS: One view. LIMITATIONS: None. FINDINGS: LUNGS AND PLEURA: No pneumothorax. No consolidation or pleural effusion. Similar right hi lar fullness and parenchymal scarring. MEDIASTINUM AND HILAR STRUCTURES: Stable. Similar right hilar fullness and parenchymal scarring. HEART AND VASCULAR STRUCTURES: Stable. BONES: No acute findings. HARDWARE: None in the chest. OTHER: No other significant finding. IMPRESSION: NO ACUTE FINDINGS.Similar right hilar fullness and parenchymal scarring. TECHNICAL DOCUMENTATION: JOB ID: [id number] [employer]- All Rights Reserved Reading location - IP/workstation name: [email or web address]
--- NOTE | 2018-08-18 18:17 | ER Document Report ---
ED General - General Chief Complaint: Abdominal Pain Stated Complaint: ABDOMINAL PAIN Time Seen by Provider: 08/18/18 16:25 Notes: Patient is a 73-year-old female who presents to the emergency department with a chief complaint of abdominal pain and a cough. She states that her symptoms started 3 days ago. He does have generalized abdominal pain. She denies any nausea, vomiting, or diarrhea. She is bedbound at home with family taking care of her. She is a past medical history of COPD, lung cancer, hypertension, arthritis, multiple sclerosis. She is on multiple medications. She admits to being on Percocet. She is also on multiple hypertensive medications. TRAVEL OUTSIDE OF THE [place] IN LAST 30 DAYS: No - Related Data Allergies/Adverse Reactions: azithromycin Allergy (Verified 06/20/18 20:48) amoxicillin [Amoxicillin] Adverse Reaction (Verified 06/20/18 20:48) visual hallucinations erythromycin base [Erythromycin Base] Adverse Reaction (Verified 06/20/18 20:48) visual hallucinations Potassium Clavulanate * [From Augmentin] Adverse Reaction (Verified 06/20/18 20:48) visual hallucinations Past Medical History - Social History Smoking Status: Former Smoker Family History: Reviewed & Not Pertinent, COPD, Malignancy - Lung cancer Patient has suicidal ideation: No Patient has homicidal ideation: No - Past Medical History Cardiac Medical History: Reports: Hx Congestive Heart Failure, Hx Coronary Artery Disease, Hx Heart Attack, Hx Hypertension Denies: Hx DVT, Hx Hypercholesterolemia, Hx Pulmonary Embolism Pulmonary Medical History: Reports: Hx Asthma, Hx Bronchitis, Hx COPD - 2 L nasal home oxygen, Hx Pneumonia, Hx Respiratory Failure - Chronic respiratory failure Denies: Hx Sleep Apnea, Hx Tuberculosis Neurological Medical History: Denies: Hx Seizures Endocrine Medical History: Reports: Hx Diabetes Mellitus Type 2, Hx Hypothyroidism. 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 Denies: Hx Cirrhosis, Hx Hepatitis, Hx Ulcer Musculoskeletal Medical History: Reports Hx Arthritis, Denies Hx Multiple Sclerosis, Reports Hx Musculoskeletal Deformity, Reports Hx Musculoskeletal Trauma Psychiatric Medical History: Reports: Hx Dementia, Hx Depression Denies: Hx Bipolar Disorder, Hx Schizophrenia Infectious Medical History: Reports: Hx C-Diff. Denies: Hx Hepatitis Past Surgical History: Reports: Hx Cholecystectomy, Hx Orthopedic Surgery - Foot surgery, Other - cataract bilateral - Immunizations Hx Diphtheria, Pertussis, Tetanus Vaccination: Yes Hx Pneumococcal Vaccination: 08/30/12 Physical Exam - Vital signs Vitals: Pulse Ox 99 08/18/18 16:15 - Notes Notes: PHYSICAL EXAMINATION: GENERAL: Appears well, healthy, well-nourished, no acute distress. HEAD: Normocephalic, atraumatic. EYES: PERRL, conjunctiva normal, all extraocular movements intact, sclera nonicteric ENT: Moist mucous membranes. NECK: Supple, no noticeable swelling, redness, rash. Normal range of motion. LUNGS: Expiratory wheezes noted throughout all lung curtis. CARDIOVASCULAR: S1-S2, regular rate, regular rhythm. Radial pulses 2+, normal. ABDOMEN: Normoactive bowel sounds. Soft, mildly tender, no guarding, no serafin ound tenderness, and no masses palpated. EXTREMITIES: Normal strength and range of motion, no pitting or edema. No cyanosis. NEUROLOGICAL: Moves all extremities upon command. Strength 5/5 in all extremities. PSYCH: Normal mood, normal affect. SKIN: Warm, dry. No rash, lesions, ulcerations noted. Normal skin turgor. Course - Re-evaluation Re-evalutation: 08/18/18 16:30 The patient has expiratory wheezes noted in bilateral lung sounds. She received a DuoNeb treatment. Differential diagnosis includes pneumonia, bronchitis, or COPD exacerbation. In regards to the patient's abdominal pain, her differential diagnosis includes urinary tract infection, bowel obstruction, mesenteric ischemia, or perforated bowel. I do not suspect patient has a bowel obstruction because she had a bowel movement today. I suspect that patient has missed enteric ischemia because her abdomen is not tender. I do not suspect a perforated bowel because her abdomen is soft. Will await labs to determine if patient has any infective cause of her pain. 08/18/18 18:23 Patient's urinalysis shows a urinary tract infection. She will be started on doxycycline due to her urinary tract infection. Based off her chest x-ray, I do not suspect she has pneumonia because it is the same as her previous chest x- ray. She states that she does not have any abdominal pain anymore. Her lung sounds are clear after 1 DuoNeb treatment. Verbal discharge instructions were given to the patient. They verbalized understanding. They are stable for d ischarge. - Vital Signs Vital signs: Temp Pulse Resp BP Pulse Ox 97.4 F 93 22 H 132/64 H 93 08/18/18 19:36 08/18/18 19:36 08/18/18 19:36 08/18/18 19:36 08/18/18 19:36 - Laboratory Result Diagrams: 08/18/18 17:02 08/18/18 17:02 Laboratory results interpreted by me: 08/18/18 08/18/18 08/18/18 17:02 17:02 17:15 RBC 3.10 L Hgb 9.7 L Hct 29.5 L RDW 18.8 H Seg Neutrophils % 90.6 H Lymphocytes % 5.7 L Carbon Dioxide 34 H Glucose 171 H Total Protein 5.6 L Albumin 3.3 L Urine Nitrite POSITIVE H Ur Leukocyte Esterase LARGE H Urine Ascorbic Acid 40 H Discharge - Discharge Clinical Impression: Urinary tract infection Qualifiers: Urinary tract infection type: acute cystitis Hematuria presence: without hematuria Qualified Code(s): N30.00 - Acute cystitis without hematuria Condition: Good Disposition: HOME, SELF-CARE Additional Instructions: Your urine shows findings consistent with a urinary tract infection. Please take all the antibiotics as directed even if your symptoms have improved. Please follow-up with your primary care physician as needed. Return to em ergency room if you develop fever >101F, persistent vomiting, become lethargic, have severe pain in your sides, or any other symptoms that are concerning to you. Prescriptions: Doxycycline Hyclate 100 mg PO BID #14 capsule Referrals: BAKARI VELARDE MD [Primary Care Provider] - Follow up as needed
[2018-08-18] MEDS ORDERED: DOXYCYCLINE HYCLATE 100 MG TABLET PO ONE (18:34)
[2018-08-18 19:38] VITALS: BP 132/64
== END 2018-08-18 19:52 | disposition home or self-care (01) ==
LOC: ER 16:11
DX: N30.00 Acute cystitis without hematuria (principal); R10.9 Unspecified abdominal pain; R05 Cough; R10.84 Generalized abdominal pain; J44.9 Chronic obstructive pulmonary disease, unspecified; Z87.891 Personal history of nicotine dependence; I10 Essential (primary) hypertension
CPT/HCPCS: 94640; 99284; 51701; 36415; 83690; 85025; 80053; 81001; 71045; A9270 ×2; J7620

== ENCOUNTER 2018-08-26 19:30 | Inpatient (IN) | payer MEDICARE, OTHER ==
[2018-08-26] MEDS ORDERED: IPRATROPIUM/ALBUTEROL 0.5-2.5 MG/3 ML AMPUL NEB ONE ×2 (19:45)
[2018-08-26] MEDS ORDERED: METHYLPREDNISOLONE INJ 125 MG/2 ML SDV IV ONE (19:46)
--- NOTE | 2018-08-26 19:50 | ER Document Report ---
Addendum entered and electronically signed by SJ TRENT PA 08/27/18 04:01: Procedures - Central Line right femoral Consent obtained: Yes - verbal Central line pre-insertion: Sterile PPE donned, Chloraprep applied, Sterile drapes applied Central line lumen type: Triple Anesthetic type: 1% Lidocaine mL's of anesthesia: 5 Ultrasound guided: Yes Line secured with sutures: Yes Central line post-insertion: Blood return from lumens, Biopatch applied, Sutured, Sterile dressing applied Number of attempts: 2 Complications: Yes - see below Notes: 08/27/18 Attempted first in the left femoral area. Unfortunately there was ease of getting into the femoral line but the needle would not draw correctly and then would not drip correctly to allow access of the wire, I was unable to thread as a result. There appeared to be a problem with the bevel of the needle after closer inspection. This was checked for clots and then when it still did not work, switched kits and switched to right side. Easily obtained on right side. Addendum entered and electronically signed by SJ TRENT PA 08/27/18 03:58: Course - Re-evaluation Re-evalutation: 08/27/18 03:55 Both ultrasound-guided IVs have blown over time. Patient is extremely difficult to obtain access at this time. I discussed with patient. She verbally agrees to central line placement. Patient has very short neck and is on BiPAP, prefers femoral. This was performed. - Vital Signs Vital signs: Temp Pulse Resp BP Pulse Ox 97.9 F 108 H 12 121/72 100 08/27/18 02:45 08/26/18 19:30 08/27/18 03:01 08/27/18 03:01 08/27/18 03:01 - Laboratory Result Diagrams: 08/26/18 20:17 08/26/18 20:17 Laboratory results interpreted by me: 08/26/18 08/26/18 08/26/18 20:17 20:17 20:17 RBC 2.93 L Hgb 9.3 L Hct 28.1 L RDW 19.7 H VBG pH 7.28 L VBG pCO2 82.1 H* VBG HCO3 38.0 H Carbon Dioxide 35 H Anion Gap 3 L BUN 24 H Est GFR (Non-Af Amer) 56 L Glucose 116 H Creatine Kinase Total Protein 5.3 L Albumin 3.1 L 08/26/18 20:17 RBC Hgb Hct RDW VBG pH VBG pCO2 VBG HCO3 Carbon Dioxide Anion Gap BUN Est GFR (Non-Af Amer) Glucose Creatine Kinase < 20 L Total Protein Albumin Original Note: ED Respiratory Problem - General Stated Complaint: shortness of breath Time Seen by Provider: 08/26/18 19:37 Notes: Patient is a 73-year-old female that comes to the emergency department for chief complaint of difficulty breathing, productive cough, tightness in her chest. Denies fever. States that she ran out of her albuterol nebulizer at home today. She comes by EMS from home, received a DuoNeb treatment in route with no noted improvement. She is on 2 L nasal cannula at home, has a history of COPD, CHF, CAD, diabetes, atrial fibrillation. Reports recent admission to the hospital f or COPD. Up-to-date on influenza vaccine. TRAVEL OUTSIDE OF THE [place] IN LAST 30 DAYS: No - Related Data Allergies/Adverse Reactions: azithromycin Allergy (Verified 08/26/18 23:36) amoxicillin [Amoxicillin] Adverse Reaction (Verified 08/26/18 23:36) visual hallucinations erythromycin base [Erythromycin Base] Adverse Reaction (Verified 08/26/18 23:36) visual hallucinations Potassium Clavulanate * [From Augmentin] Adverse Reaction (Verified 08/26/18 23:36) visual hallucinations Past Medical History - General Information source: Patient, Emergency Med Personnel - Social History Smoking Status: Former Smoker Frequency of alcohol use: None Drug Abuse: None Lives with: Family Family History: Reviewed & Not Pertinent, COPD, Malignancy - Lung cancer - Past Medical History Cardiac Medical History: Reports: Hx Congestive Heart Failure, Hx Coronary Artery Disease, Hx Heart Attack, Hx Hypertension Denies: Hx DVT, Hx Hypercholesterolemia, Hx Pulmonary Embolism Pulmonary Medical History: Reports: Hx Asthma, Hx Bronchitis, Hx COPD - 2 L nasal home oxygen, Hx Pneumonia, Hx Respiratory Failure - Chronic respiratory failure Denies: Hx Sleep Apnea, Hx Tuberculosis Neurological Medical History: Denies: Hx Seizures Endocrine Medical History: Reports: Hx Diabetes Mellitus Type 2, Hx Hypothyroidism. 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 Denies: Hx Cirrhosis, Hx Hepatitis, Hx Ulcer Musculoskeletal Medical History: Reports Hx Arthritis, Denies Hx Multiple Sclerosis, Reports Hx Musculoskeletal Deformity, Reports Hx Musculoskeletal Trauma Psychiatric Medical History: Reports: Hx Dementia, Hx Depression Denies: Hx Bipolar Disorder, Hx Schizophrenia Infectious Medical History: Reports: Hx C-Diff. Denies: Hx Hepatitis Past Surgical History: Reports: Hx Cholecystectomy, Hx Orthopedic Surgery - Foot surgery, Other - cataract bilateral - Immunizations Hx Diphtheria, Pertussis, Tetanus Vaccination: Yes Hx Pneumococcal Vaccination: 08/30/12 Review of Systems - Review of Systems Constitutional: No symptoms reported EENT: No symptoms reported Cardiovascular: See HPI Respiratory: See HPI Gastrointestinal: No symptoms reported Genitourinary: No symptoms reported Female Genitourinary: No symptoms reported Musculoskeletal: No symptoms reported Skin: No symptoms reported Hematologic/Lymphatic: No symptoms reported Neurological/Psychological: No symptoms reported Physical Exam - Vital signs Vitals: Temp Pulse Resp BP Pulse Ox 98.1 F 108 H 21 H 118/69 100 08/26/18 19:30 08/26/18 19:30 08/26/18 19:30 08/26/18 19:30 08/26/18 19:30 - Notes Notes: GENERAL: Alert. Smells of urine. HEAD: Normocephalic, atraumatic. EYES: Pupils equal, round, and reactive to light. Extraocular movements intact. ENT: Oral mucosa dry, tongue midline. Oropharynx unremarkable. Airway patent. Nares patent, no nasal septal hematoma, TM's intact. NECK: Full range of motion. Supple. Trachea midline. LUNGS: Very decreased, tight wheezes and a few scattered rhonchi. No rales noted. Borderline tachypnea but patient can speak in full sentences. HEART: Tachycardia, normal rhythm. ABDOMEN: Soft, non-tender. Non-distended. Bowel sounds present in all 4 quadrants. GENITOURINARY: Deferred EXTREMITIES: Moves all 4 extremities spontaneously. No edema, normal radial and dorsalis pedis pulses bilaterally. No cyanosis. BACK: no cervical, thoracic, lumbar midline tenderness. No saddle anesthesia, normal distal neurovascular exam. NEUROLOGICAL: Alert and oriented x3. Normal speech. [cranial nerves II through XII grossly intact]. PSYCH: Normal affect, normal mood. SKIN: Warm, dry, normal turgor. No rashes or lesions noted. Course - Re-evaluation Re-evalutation: Patient is very decreased breath sounds, expiratory wheezes, tachypnea, scattered rhonchi. On 3 L nasal cannula she is oxygenating well at this time. She is tachycardic. Patient rechecked, still with expiratory wheezes, has labored breathing, will transition to BiPAP. EKG showing sinus rhythm at a rate of 107, right bundle-branch block, difficult to interpret EKG because of some artifact but this does not indicate any specific T wave inversions or ST segment changes in consecutive leads. QTc 46, NH interval 128. Normal axis. No noted significant change from prior. 08/26/18 Venous blood gas showing respiratory acidosis with elevated CO2, elevated bicarb as well with chronic respiratory failure and compensation. CO2 in the 80s, on review of her previous trends she is usually around 60. Urinalysis appears infected, patient smells of urine, likely urinary tract infec tion, unfortunately initial sample was not obtained, covering with Levaquin for urinary and possible pneumonia sources. Chest x-ray unremarkable, CBC nonspecific with chronic likely chronic anemia, c hemistry nonspecific, troponin indeterminate. Discussed with patient. Initially she was on BiPAP, states she is anxious on this, given small dose of Ativan. 08/26/18 21:[address] Johnston, hospitalist, patient admitted to the hospital, placed on medical floor for admission staying on BiPAP. - Vital Signs Vital signs: Temp Pulse Resp BP Pulse Ox 97.9 F 108 H 15 113/61 100 08/27/18 02:45 08/26/18 19:30 08/27/18 02:45 08/27/18 02:45 08/27/18 02:45 - Laboratory Result Diagrams: 08/26/18 20:17 08/26/18 20:17 Laboratory results interpreted by me: 08/26/18 08/26/18 08/26/18 20:17 20:17 20:17 RBC 2.93 L Hgb 9.3 L Hct 28.1 L RDW 19.7 H VBG pH 7.28 L VBG pCO2 82.1 H* VBG HCO3 38.0 H Carbon Dioxide 35 H Anion Gap 3 L BUN 24 H Est GFR (Non-Af Amer) 56 L Glucose 116 H Creatine Kinase Total Protein 5.3 L Albumin 3.1 L 08/26/18 20:17 RBC Hgb Hct RDW VBG pH VBG pCO2 VBG HCO3 Carbon Dioxide Anion Gap BUN Est GFR (Non-Af Amer) Glucose Creatine Kinase < 20 L Total Protein Albumin Discharge - Discharge Clinical Impression: COPD exacerbation Acute and chronic respiratory failure Qualifiers: Respiratory failure complication: hypercapnia Qualified Code(s): J96.22 - Acute and chronic respiratory failure with hypercapnia Condition: Fair Disposition: ADMITTED INPATIENT Admitting Provider: Hospitalist Unit Admitted: Medical Floor
[2018-08-26] MEDS: MAGNESIUM SULFATE/D5W 1 GM/100 ML RTUPB IV SCH ×2 (20:17→21:48)
[2018-08-26 20:37] LABS: VENOUS BLOOD BASE EXCESS 8.1 mmol/L; VENOUS BLOOD PH 7.28 (7.30-7.42)
[2018-08-26 20:40] LABS: VENOUS BLOOD PCO2 82.1 mmHg (35-63)
[2018-08-26 20:56] LABS: ALANINE AMINOTRANSFERASE 23 U/L (9-52); ALBUMIN 3.1 g/dL (3.5-5.0); ALKALINE PHOSPHATASE 67 U/L (38-126); ASPARTATE AMINO TRANSFERASE 20 U/L (14-36); BILIRUBIN,DIRECT 0.3 mg/dL (0.0-0.4); BILIRUBIN,TOTAL 0.3 mg/dL (0.2-1.3); BLOOD UREA NITROGEN 24 mg/dL (7-20); CALCIUM 9.6 mg/dL (8.4-10.2); GLUCOSE 116 mg/dL (75-110); POTASSIUM 4.6 mmol/L (3.6-5.0); TOTAL PROTEIN 5.3 g/dL (6.3-8.2)
[2018-08-26 20:57] LABS: ABSOLUTE EOSINOPHILS # (AUTO) 0.3 10^3/uL (0.0-0.6); ABSOLUTE LYMPHOCYTES (AUTO) 1.1 10^3/uL (0.5-4.7); ABSOLUTE MONOCYTES (AUTO) 0.7 10^3/uL (0.1-1.4); ABSOLUTE NEUT (AUTO) 5.3 10^3/uL (1.7-8.2); BASOPHILS % (AUTO) 0.4 % (0-2); HEMATOCRIT 28.1 % (36.0-47.0); HEMOGLOBIN 9.3 g/dL (12.0-15.5); LYMPHOCYTES % (AUTO) 14.3 % (13-45); MEAN CORPUSCULAR HEMOGLOBIN 31.8 pg (27.0-33.4); MEAN CORPUSCULAR HGB CONC 33.2 g/dL (32.0-36.0); MEAN CORPUSCULAR VOLUME 96 fl (80-97); MONOCYTES % (AUTO) 9.1 % (3-13); PLATELET COUNT 253 10^3/uL (150-450); RED BLOOD COUNT 2.93 10^6/uL (3.72-5.28); RED CELL DISTRIBUTION WIDTH 19.7 % (11.5-14.0); SEGMENTED NEUTROPHILS % (AUTO) 72.2 % (42-78); TOTAL CELLS COUNTED % (AUTO) 100 %; WHITE BLOOD COUNT 7.4 10^3/uL (4.0-10.5)
[2018-08-26 21:01] LABS: CARBON DIOXIDE 35 mmol/L (22-30); CHLORIDE 102 mmol/L (98-107); SODIUM 140.1 mmol/L (137-145)
[2018-08-26 21:02] LABS: ANION GAP 3 (5-19)
[2018-08-26] MEDS ORDERED: LORAZEPAM INJ 2 MG/1 ML VIAL IV ONE (21:16)
--- NOTE | 2018-08-26 21:19 | RADIOLOGY REPORT (SQ) ---
EXAM DESCRIPTION: XR CHEST 1 VIEW COMPLETED DATE/TME: 08/26/2018 20:38 CLINICAL HISTORY: 73 years, Female, shortness of breath Findings: The heart is mildly enlarged. No consolidation or pleural effusion. No pneumothorax or pulmonary edema. IMPRESSION: No acute disease.
[2018-08-26] MEDS ORDERED: LEVOFLOXACIN 750 MG/D5W RTU 750 MG/150 ML RTUPB IV ONE (21:34)
[2018-08-26] MEDS ORDERED: MAGNESIUM HYDROXIDE SUSP 30 ML UDCUP PO PRN (22:32)
[2018-08-26] MEDS ORDERED: ONDANSETRON HCL INJ/PF 4 MG/2 ML SDV IV PRN (22:32)
[2018-08-26] MEDS ORDERED: MAG HYDROX/AL HYDROX/SIMETH SUSP 30 ML UDCUP PO PRN (22:32)
[2018-08-26] MEDS ORDERED: ONDANSETRON 4 MG TAB.RAPDIS PO PRN (22:32)
[2018-08-26] MEDS ORDERED: ALBUTEROL SULFATE 0.083% NEB 2.5 MG/3 ML AMPUL NEB PRN (22:44)
[2018-08-26] MEDS ORDERED: ACETAMINOPHEN 325 MG TABLET PO PRN (22:44)
[2018-08-26] MEDS ORDERED: NALBUPHINE HCL INJ 10 MG/1 ML AMPULE IV PRN (22:44)
[2018-08-26] MEDS ORDERED: ACETAMINOPHEN 650 MG SUPP.RECT PR PRN (22:44)
[2018-08-26] MEDS ORDERED: DEXTROSE 40% GEL 15 GM TUBE PO PRN ×2 (22:46)
[2018-08-26] MEDS ORDERED: GLUCAGON,HUMAN RECOMB 1 MG INJ IM PRN (22:46)
[2018-08-26] MEDS ORDERED: DEXTROSE 50%-WATER 25 GM/50 ML DISP.SYRIN IV PRN ×2 (22:46)
[2018-08-27] MEDS ORDERED: METHYLPREDNISOLONE INJ 40 MG/1 ML SDV IV SCH
[2018-08-27] MEDS ORDERED: FLUTICASONE NASAL SPRAY 50 MCG/SPRY 120 SPRAY/16 GM NASL ONE (00:10)
[2018-08-27] MEDS ORDERED: CARVEDILOL 3.125 MG TABLET PO ONE (00:10)
[2018-08-27] MEDS ORDERED: FAMOTIDINE 20 MG TABLET PO ONE (00:10)
[2018-08-27] MEDS ORDERED: GUAIFENESIN 600 MG TABLET.SA PO ONE (00:10)
[2018-08-27] MEDS ORDERED: METHYLPREDNISOLONE INJ 40 MG/1 ML SDV IV ONE (00:15)
[2018-08-27] MEDS: IPRATROPIUM BROMIDE 0.02% NEB 0.5 MG/2.5 ML AMPUL NEB SCH ×3 (00:23→16:24)
[2018-08-27] MEDS: POTASSI CL 20 MEQ/1/2NS 1L 20 MEQ/1,000 ML RTUINJ IV PRN ×2 (00:23→11:44)
[2018-08-27] MEDS: LEVALBUTEROL HCL NEB 1.25 MG/3 ML AMPUL NEB SCH ×3 (00:34→16:24)
--- NOTE | 2018-08-27 01:38 | PDOC H&P ---
History of Present Illness Admission Date/PCP: 08/26/18 21:47 BAKARI VELARDE MD Patient complains of: Dyspnea History of Present Illness: TRENTON MCCOY is a 73 year old female who presented to the emergency room with a 1 day history of progressive dyspnea. She admits that she began having shortness of breath with a productive cough and a feeling of congestion and tightness in her chest while at home earlier on the day of admission. She was out of her albuterol nebulizer medications and did not get relief with her inhalers. Her symptoms worsened to the point where she felt that she was in severe distress and she called for EMS to bring her to the hospital. She has had numerous similar prior episodes with her COPD and was recently hospitalized. She has not identified any aggravating or ameliorating factors for her dyspnea. She has a history of COPD with chronic respiratory failure with hypoxia and uses oxygen at 2 L/min per nasal cannula at home. She received a DuoNeb treatment in the ambulance on the way to the hospital without significant i mprovement. In the emergency room she was found to have acute on chronic respiratory failure with hypoxia and hypercapnia which required treatment with BiPAP in order to obtain adequate oxygenation and provide her with relief of her significant respiratory distress. Her chest x-ray and CBC were unremarkable. She was subsequently admitted to the hospital for further evaluation and treatment of her acute on chronic respiratory failure. Past Medical History Cardiac Medical History: Reports: Atrial Fibrillation, Congestive Heart Failure, Coronary Artery Disease, Myocardial Infarction, Hypertension Denies: DVT, Hyperlipidema, Pulmonary Embolism Pulmonary Medical History: Reports: Asthma, Bronchitis, Chronic Obstructive Pulmonary Disease (COPD) - 2 L nasal home oxygen, Pneumonia, Respiratory Failure - Chronic hypoxic respiratory failure Denies: Sleep Apnea, Tuberculosis EENT Medical History: Reports: Cataracts - Bilateral Denies: Ears - No hearing changes Neurological Medical History: Denies: Multiple Sclerosis, Seizures Endocrine Medical History: Reports: Diabetes Mellitus Type 2, Hypothyroidism Denies: Diabetes Mellitus Type 1, Hyperthyroidism Renal/ Medical History: Denies: Chronic Kidney Disease, Nephrolithiasis Malignancy Medical History: Reports: 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 GI Medical History: Reports: Gastroesophageal Reflux Disease Denies: Cirrhosis, Hepatitis Musculoskeltal Medical History: Reports: Arthritis, Gout Skin Medical History: Denies: Eczema, Psoriasis Psychiatric Medical History: Reports: Dementia, Depression Denies: Alcohol Dependency, Bipolar Disorder, Substance Abuse Traumatic Medical History: Reports: None Hematology: Reports: Anemia, Bleeding Tendencies Infectious Medical History: Reports: Clostridium Difficile Past Surgical History Past Surgical History: Reports: Cholecystectomy, Orthopedic Surgery - Foot surgery, Other - cataract bilateral Social History Information Source: Patient Lives with: Family Smoking Status: Former Smoker Frequency of Alcohol Use: None Hx Recreational Drug Use: No Drugs: None Hx Prescription Drug Abuse: No - Advance Directive Resuscitation Status: Full Code Surrogate healthcare decision maker:: Her daughter Radha Family History Family History: COPD, Malignancy - Lung cancer Parental Family History Reviewed: Yes Children Family History Reviewed: No Sibling(s) Family History Reviewed.: Yes Medication/Allergy Home Medications: Albuterol Sulfate [Ventolin 0.083% Neb 2.5 mg/3 mL Ampul] 1 vial NEB RTQ6 07/08/18 Fluticasone Propionate [Flonase Nasal [place] 50 Mcg/[place] 16 gm] 2 sprays NASL Q12 07/08/18 Guaifenesin [Mucinex] 600 mg PO Q12 07/08/18 Ipratropium [place] [Atrovent 0.02% Neb 0.5 mg/2.5 ml Ampul] 0.5 mg NEB RTQ8 07/08/18 Levalbuterol HCl [Xopenex Neb 1.25 mg/3 ml Ampul] 1.25 mg NEB RTQ4HP PRN 07/08/18 Levalbuterol HCl [Xopenex Neb 1.25 mg/3 ml Ampul] 1.25 mg NEB RTQ8 07/08/18 Levothyroxine Sodium [Synthroid 0.112 mg Tablet] 112 mcg PO Q6AM 07/08/18 Menthol/Camphor [Sarna Anti-Itch Lotion] 1 applic TP TID 07/08/18 Metformin HCl [Glucophage 500 mg Tablet] 500 mg PO BID 07/08/18 Multivitamin with Iron [Multivitamins with Iron] 2 each PO DAILY 07/08/18 Olopatadine HCl [Patanol 0.1% Oph Soln 5 ml] 1 drop OU BID 07/08/18 Pantoprazole Sodium [Protonix] 40 mg PO DAILY 07/08/18 Tiotropium [place] [Spiriva Handihaler 5 Cap/Kit (18 Mcg/Cap)] 1 cap IH DAILY 07/08/18 Acetaminophen [Tylenol 325 mg Tablet] 325 mg PO Q4HP PRN tablet 07/10/18 Fluticasone Propionate [Flonase Nasal [place] 50 Mcg/[place] 16 gm] 2 spray NASL Q12 spray.pump 07/10/18 Ipratropium [place] [Atrovent 0.02% Neb 0.5 mg/2.5 ml Ampul] 0.5 mg NEB RTQ8 vial.neb 07/10/18 Levalbuterol HCl [Xopenex Neb 1.25 mg/3 ml Ampul] 1.25 mg NEB RTQ4HP PRN vial.neb 07/10/18 Levalbuterol HCl [Xopenex Neb 1.25 mg/3 ml Ampul] 1.25 mg NEB RTQ8 vial.neb Levothyroxine Sodium [Synthroid 0.112 mg Tablet] 0.112 mg PO Q6AM tablet 07/10/18 Nystatin [Mycostatin Topical Powder 15 gm] 1 applic TP BID #1 bottle 07/10/18 Olopatadine HCl [Patanol 0.1% Oph Soln 5 ml] 1 drop OU BID bottle 07/10/18 Insulin Lispro [Humalog Insulin (Lispro) 100 unit/mL] 0 - 12 unit SUBCUT ACP PRN unit 07/19/18 Levalbuterol HCl [Xopenex Neb 1.25 mg/3 ml Ampul] 1.25 mg NEB RTQ6HP PRN vial.neb 07/19/18 Carvedilol [Coreg 3.125 mg Tablet] 3.125 mg PO Q12 #60 tablet 08/01/18 Ipratropium/Albuterol Sulfate [Duoneb 3 ml Ampul] 3 ml NEB RTQ6 #120 vial.neb 08/04/18 Potassium Chloride [Klor-Con 10 Meq Capsule ER] 20 meq PO BID #60 capsule.er 08/04/18 Prednisone [Deltasone 20 mg Tablet] 20 mg PO WBRKFST #30 tablet 08/04/18 Doxycycline Hyclate 100 mg PO BID #14 capsule 08/18/18 Allergies/Adverse Reactions: azithromycin Allergy (Verified 08/26/18 23:36) amoxicillin [Amoxicillin] Adverse Reaction (Verified 08/26/18 23:36) visual hallucinations erythromycin base [Erythromycin Base] Adverse Reaction (Verified 08/26/18 23:36) visual hallucinations Potassium Clavulanate * [From Augmentin] Adverse Reaction (Verified 08/26/18 23: 36) visual hallucinations Review of Systems Constitutional: ABSENT: chills, fever(s) Eyes: ABSENT: visual disturbances, other - Ocular. Ears: ABSENT: hearing changes, other - Ear pain Nose, Mouth, and Throat: ABSENT: mouth pain, sore throat Cardiovascular: PRESENT: dyspnea on exertion. ABSENT: chest pain, edema, orthropnea, palpitations Respiratory: PRESENT: cough, dyspnea, sputum - Small amounts of clearish to white sputum. ABSENT: hemoptysis Gastrointestinal: ABSENT: abdominal pain, constipation, diarrhea, nausea, vomiting Genitourinary: ABSENT: dysuria, hematuria Musculoskeletal: ABSENT: deformity, joint swelling Integumentary: ABSENT: pruritus, rash Neurological: ABSENT: confusion, convulsions, memory loss, tremor(s) Psychiatric: ABSENT: anxiety, depression Endocrine: ABSENT: cold intolerance, heat intolerance Hematologic/Lymphatic: ABSENT: easy bleeding, easy bruising Physical Exam Vital Signs: Temp Pulse Resp BP Pulse Ox 21 H 08/26/18 20:50 Intake & Output 08/24/18 08/25/18 08/26/18 23:59 23:59 23:59 Intake Total 100 Balance 100 General appearance: PRESENT: no acute distress, cooperative, other - On BiPAP Head exam: PRESENT: atraumatic, normocephalic Eye exam: PRESENT: conjunctiva pink, EOMI. ABSENT: scleral icterus Ear exam: PRESENT: normal external ear exam. ABSENT: bleeding, drainage Mouth exam: PRESENT: dry mucosa, neck supple, tongue midline Neck exam: ABSENT: thyromegaly, tracheal deviation Respiratory exam: PRESENT: accessory muscle use - Mild accessory muscle use with increased work of breathing, decreased breath sounds - Decreased breath sounds throughout all curtis with poor air movement, prolonged expiratory phas - Moderately prolonged expiratory phase in all curtis, symmetrical, wheezes - Expiratory wheezes noted in all curtis, other - On BiPAP Cardiovascular exam: PRESENT: irregular rhythm - Irregularly irregular. ABSENT: clicks, gallop, rubs Pulses: PRESENT: normal radial pulses, normal dorsalis pedis pul Vascular exam: PRESENT: normal capillary refill. ABSENT: pallor GI/Abdominal exam: PRESENT: normal bowel sounds, soft Rectal exam: PRESENT: deferred Extremities exam: ABSENT: joint swelling, pedal edema Musculoskeletal exam: ABSENT: deformity, dislocation Neurological exam: PRESENT: alert, oriented to person, oriented to place, oriented to time, oriented to situation, CN II-XII grossly intact. ABSENT: motor sensory deficit Psychiatric exam: PRESENT: appropriate affect, normal mood Skin exam: PRESENT: dry, intact, warm. ABSENT: jaundice, rash, urticaria Results Laboratory Results: 08/26/18 20:17 08/26/18 20:17 08/26/18 08/26/18 08/26/18 20:17 20:17 20:17 WBC 7.4 RBC 2.93 L Hgb 9.3 L Hct 28.1 L MCV 96 MCH 31.8 MCHC 33.2 RDW 19.7 H Plt Count 253 Seg Neutrophils % 72.2 Lymphocytes % 14.3 Monocytes % 9.1 Eosinophils % 4.0 Basophils % 0.4 Absolute Neutrophils 5.3 Absolute Lymphocytes 1.1 Absolute Monocytes 0.7 Absolute Eosinophils 0.3 Absolute Basophils 0.0 VBG pH VBG pCO2 VBG HCO3 VBG Base Excess Sodium 140.1 Potassium 4.6 Chloride 102 Carbon Dioxide 35 H Anion Gap 3 L BUN 24 H Creatinine 0.97 Est GFR ( Amer) > 60 Est GFR (Non-Af Amer) 56 L Glucose 116 H Lactic Acid 1.0 Calcium 9.6 Total Bilirubin 0.3 AST 20 ALT 23 Alkaline Phosphatase 67 Total Protein 5.3 L Albumin 3.1 L 08/26/18 20:17 WBC RBC Hgb Hct MCV MCH MCHC RDW Plt Count Seg Neutrophils % Lymphocytes % Monocytes % Eosinophils % Basophils % Absolute Neutrophils Absolute Lymphocytes Absolute Monocytes Absolute Eosinophils Absolute Basophils VBG pH 7.28 L VBG pCO2 82.1 H* VBG HCO3 38.0 H VBG Base Excess 8.1 Sodium Potassium Chloride Carbon Dioxide Anion Gap BUN Creatinine Est GFR ( Amer) Est GFR (Non-Af Amer) Glucose Lactic Acid Calcium Total Bilirubin AST ALT Alkaline Phosphatase Total Protein Albumin 08/26/18 20:17 Troponin I 0.022 Impressions: Chest X-Ray 08/26/18 20:38 IMPRESSION: No acute disease. Assessment & Plan - Diagnosis (1) Acute on chronic respiratory failure with hypoxia and hypercapnia Is this a current diagnosis for this admission?: Yes Plan: Patient will be treated with BiPAP as required until she can be gradually weaned back to her normal oxygen dependent state utilizing O2 at 2 L/min per nasal cannula continuously. (2) COPD exacerbation Is this a current diagnosis for this admission?: Yes Plan: Patient will be treated with an aggressive pulmonary toilet utilizing Xopenex, Atrovent, Pulmicort and albuterol nebulizers. She will be treated with IV Solu- Medrol and will also be on Levaquin as empiric antibiotic coverage. (3) Hypothyroidism (acquired) Is this a current diagnosis for this admission?: Yes Plan: Patient will be continued on her current thyroid replacement therapy and thyroid profile will be obtained to evaluate efficacy of treatment. (4) CHF with left ventricular diastolic dysfunction, NYHA class 1 Is this a current diagnosis for this admission?: Yes Plan: Patient will be continued on her current cardiac medications with changes made only if required. 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 Sliding scale insulin based on before meals and at bedtime Accu-Cheks will be provided due to her acute illness and steroid therapy. Hemoglobin A1c will be obtained to evaluate the efficacy of her usual therapy. (6) Essential hypertension Is this a current diagnosis for this admission?: Yes Plan: Patient will be continued on her current antihypertensive regiment. Changes will be made only if required. (7) Coronary artery disease Qualifiers: Coronary Disease-Associated Artery/Lesion type: pala artery [place] vs. transplanted heart: pala heart Associated angina: angina presence unspecified Qualified Code(s): I25.10 - Atherosclerotic heart disease of pala coronary artery without angina pectoris Is this a current diagnosis for this admission?: Yes Plan: Patient will be continued on her current cardiac medications. Changes to her regimen will be made only if required. (8) History of lung cancer Is this a current diagnosis for this admission?: Yes Plan: Patient's history of lung cancer is noted with additional history of metastatic lesions to her brain. She will be continued on her current therapeutic regiment with no changes made unless a discussion is undertaken with her oncologist. - Time Time Spent: 30 to 50 Minutes Critical Time spent with patient: Less than 15 minutes Medications reviewed and adjusted accordingly: Yes Anticipated discharge: Home - Inpatient Certification Based on my medical assessment, after consideration of the patient's comorbidities, presenting symptoms, or acuity I expect that the services needed warrant INPATIENT care.: Yes I certify that my determination is in accordance with my understanding of Medicare's requirements for reasonable and necessary INPATIENT services [42 CFR 412.3e].: Yes Medical Necessity: Significant Comorbidiites Make Outpatient Treatment Too Risky, Need Close Monitoring Due to Risk of Patient Decompensation, Need for Nebulizer Therapy and Monitoring of Response, Risk of Complication if Not Cared For in Hospital
[2018-08-27 04:40] LABS: ANION GAP 5 (5-19); BLOOD UREA NITROGEN 23 mg/dL (7-20); CARBON DIOXIDE 30 mmol/L (22-30); CHLORIDE 104 mmol/L (98-107); CHOLESTEROL 179.01 mg/dL (0-200); GLUCOSE 170 mg/dL (75-110); POTASSIUM 5.2 mmol/L (3.6-5.0); TRIGLYCERIDES 93 mg/dL (<150)
[2018-08-27 04:51] LABS: DIRECT LDL 96 mg/dL (<100)
[2018-08-27 04:52] LABS: CREATINE KINASE MB 0.89 ng/mL (<4.55); NT PRO BNP 578 pg/mL (<450)
[2018-08-27 04:54] LABS: CREATINE KINASE < 20 U/L (30-135); TROPONIN I < 0.012 ng/mL
[2018-08-27 04:56] LABS: FREE T3 1.52 pg/mL (2.77-5.27); FREE T4 (FREE THYROXINE) 0.31 ng/dL (0.78-2.19)
[2018-08-27 05:10] LABS: THYROID STIMULATING HORMONE 15.5 uIU/mL (0.47-4.68)
[2018-08-27 05:42] LABS: HEMATOCRIT 24.4 % (36.0-47.0); HEMOGLOBIN 8.1 g/dL (12.0-15.5); MEAN CORPUSCULAR HEMOGLOBIN 31.8 pg (27.0-33.4); MEAN CORPUSCULAR HGB CONC 33.2 g/dL (32.0-36.0); MEAN CORPUSCULAR VOLUME 96 fl (80-97); PLATELET COUNT 192 10^3/uL (150-450); RED BLOOD COUNT 2.55 10^6/uL (3.72-5.28); RED CELL DISTRIBUTION WIDTH 19.5 % (11.5-14.0); WHITE BLOOD COUNT 6.6 10^3/uL (4.0-10.5)
[2018-08-27] MEDS ORDERED: LEVOTHYROXINE SODIUM 0.112 MG TABLET PO SCH (06:00)
[2018-08-27] MEDS: HEPARIN SOD (PORCINE) 5,000 UNIT/ML 1 ML SYRINGE SUBCUT SCH ×2 (06:15→14:53)
[2018-08-27] MEDS: METHYLPREDNISOLONE INJ 40 MG/1 ML SDV IV SCH ×3 (06:15→23:26)
[2018-08-27 06:35] LABS: ABSOLUTE LYMPHOCYTES# (MANUAL) 0.1 10^3/uL (0.5-4.7); ABSOLUTE MONOCYTES # (MANUAL) 0.1 10^3/uL (0.1-1.4); ABSOLUTE NEUTROPHILS# (MANUAL) 6.5 10^3/uL (1.7-8.2); BASOPHILS % (MANUAL) 0 % (0-2); EOSINOPHILS % (MANUAL) 0 % (0-6); LYMPHOCYTES % (MANUAL) 1 % (13-45); MONOCYTES % (MANUAL) 1 % (3-13); SEGMENTED NEUTROPHILS % (MAN) 98 % (42-78); TOTAL CELLS COUNTED 100
[2018-08-27 06:38] LABS: ANISOCYTOSIS 2+; OVALOCYTES 2+; PLATELET COMMENT ADEQUATE; POIKILOCYTOSIS 1+; SCHISTOCYTES SLIGHT; TEAR DROP CELLS 1+; TOXIC GRANULATION SLIGHT
[2018-08-27 06:51] LABS: ARTERIAL BLOOD H2CO3 1.37 mmol/L (1.05-1.35); ARTERIAL BLOOD HCO3 28.1 mmol/L (20-24); ARTERIAL BLOOD O2 SATURATION 98.7 % (94-98); ARTERIAL BLOOD PCO2 45.6 mmHg (35-45); ARTERIAL BLOOD PH 7.41 (7.35-7.45); ARTERIAL BLOOD TOTAL CO2 29.5 mmol/L (21-25)
[2018-08-27 06:53] LABS: ARTERIAL BLOOD FIO2 28%
--- NOTE | 2018-08-27 07:28 | EKG REPORT ---
SEVERITY:- ABNORMAL ECG - SINUS TACHYCARDIA RIGHT BUNDLE BRANCH BLOCK BORDERLINE INFERIOR Q WAVES : Confirmed by: Susan Mishra MD 27-Aug-2018 07:27:19
[2018-08-27] MEDS: INSULIN REG, HUMAN 100 UNIT/ML 3 ML VIAL (PYX) SUBCUT PRN ×3 (08:17→17:55)
[2018-08-27] MEDS: BUDESONIDE NEB 0.5 MG/2 ML AMPUL NEB SCH ×2 (08:32→20:54)
[2018-08-27] MEDS ORDERED: CAMPHOR TP SCH (10:00)
[2018-08-27] MEDS ORDERED: MENTHOL TP SCH (10:00)
[2018-08-27] MEDS: MULTIVITAMIN TABLET PO SCH (10:06)
[2018-08-27] MEDS: CARVEDILOL 3.125 MG TABLET PO SCH ×2 (10:06→23:26)
[2018-08-27] MEDS: DOCUSATE SODIUM 100 MG CAPSULE PO SCH ×2 (10:06→17:55)
[2018-08-27] MEDS: GUAIFENESIN 600 MG TABLET.SA PO SCH ×2 (10:06→23:25)
[2018-08-27] MEDS: METFORMIN HCL 500 MG TABLET PO SCH ×2 (10:06→17:55)
[2018-08-27] MEDS: FAMOTIDINE 20 MG TABLET PO SCH ×2 (10:07→23:25)
[2018-08-27] MEDS: FLUTICASONE NASAL SPRAY 50 MCG/SPRY 120 SPRAY/16 GM NASL SCH ×2 (11:53→23:25)
[2018-08-27] MEDS: TIOTROPIUM BROMIDE DPI 5 CAP/KIT (18 MCG/CAP) IH SCH (11:54)
[2018-08-27] MEDS: OLOPATADINE HCL 0.1% OPH SOLN 5 ML OU SCH ×2 (11:55→17:56)
[2018-08-27 14:48] LABS: CREATINE KINASE MB 0.79 ng/mL (<4.55)
[2018-08-27 14:54] LABS: TROPONIN I < 0.012 ng/mL
--- NOTE | 2018-08-27 15:28 | PDOC PROGRESS REPORT ---
Subjective Progress Note for:: 08/27/18 Subjective:: Patient improved and was taken off BiPAP. She is doing well on nasal cannula oxygen. Reason For Visit: ACUTE EXACERBATION OF COPD WITH ACUTE ON CHRONIC Physical Exam Vital Signs: Temp Pulse Resp BP Pulse Ox 98.1 F 85 20 140/71 H 97 08/27/18 14:00 08/27/18 08:36 08/27/18 15:01 08/27/18 15:01 08/27/18 15:01 Intake & Output 08/26/18 08/27/18 08/28/18 06:59 06:59 06:59 Intake Total 317 1000 Balance 317 1000 Weight 167 lb 12.348 oz General appearance: PRESENT: cooperative Head exam: PRESENT: atraumatic, normocephalic Eye exam: ABSENT: conjunctival injection Mouth exam: PRESENT: moist, neck supple Neck exam: ABSENT: meningismus, tenderness Respiratory exam: PRESENT: accessory muscle use, prolonged expiratory phas, wheezes Cardiovascular exam: PRESENT: irregular rhythm Pulses: PRESENT: normal radial pulses GI/Abdominal exam: PRESENT: normal bowel sounds, soft. ABSENT: mass, tenderness Rectal exam: PRESENT: deferred Musculoskeletal exam: ABSENT: deformity Neurological exam: PRESENT: alert, awake, oriented to person, oriented to place, oriented to time Psychiatric exam: ABSENT: agitated, anxious Results Laboratory Results: 08/27/18 05:25 08/27/18 04:03 08/26/18 08/26/18 08/26/18 20:17 20:17 20:17 WBC 7.4 RBC 2.93 L Hgb 9.3 L Hct 28.1 L MCV 96 MCH 31.8 MCHC 33.2 RDW 19.7 H Plt Count 253 Seg Neutrophils % 72.2 Lymphocytes % 14.3 Monocytes % 9.1 Eosinophils % 4.0 Basophils % 0.4 Absolute Neutrophils 5.3 Absolute Lymphocytes 1.1 Absolute Monocytes 0.7 Absolute Eosinophils 0.3 Absolute Basophils 0.0 Carbonic Acid HCO3/H2CO3 Ratio ABG pH ABG pCO2 ABG pO2 ABG HCO3 ABG O2 Saturation ABG Base Excess VBG pH VBG pCO2 VBG HCO3 VBG Base Excess FiO2 Sodium 140.1 Potassium 4.6 Chloride 102 Carbon Dioxide 35 H Anion Gap 3 L BUN 24 H Creatinine 0.97 Est GFR ( Amer) > 60 Est GFR (Non-Af Amer) 56 L Glucose 116 H Lactic Acid 1.0 Calcium 9.6 Magnesium Total Bilirubin 0.3 AST 20 ALT 23 Alkaline Phosphatase 67 Total Protein 5.3 L Albumin 3.1 L Triglycerides Cholesterol LDL Cholesterol Direct VLDL Cholesterol HDL Cholesterol TSH Free T4 Free T3 pg/mL 08/26/18 08/27/18 08/27/18 20:17 04:03 04:03 WBC RBC Hgb Hct MCV MCH MCHC RDW Plt Count Seg Neutrophils % Lymphocytes % Monocytes % Eosinophils % Basophils % Absolute Neutrophils Absolute Lymphocytes Absolute Monocytes Absolute Eosinophils Absolute Basophils Carbonic Acid HCO3/H2CO3 Ratio ABG pH ABG pCO2 ABG pO2 ABG HCO3 ABG O2 Saturation ABG Base Excess VBG pH 7.28 L VBG pCO2 82.1 H* VBG HCO3 38.0 H VBG Base Excess 8.1 FiO2 Sodium 139.0 Potassium 5.2 H Chloride 104 Carbon Dioxide 30 Anion Gap 5 BUN 23 H Creatinine 0.90 Est GFR ( Amer) > 60 Est GFR (Non-Af Amer) > 60 Glucose 170 H Lactic Acid Calcium 9.0 Magnesium 2.2 Total Bilirubin AST ALT Alkaline Phosphatase Total Protein Albumin Triglycerides 93 Cholesterol 179.01 LDL Cholesterol Direct 96 VLDL Cholesterol 19.0 HDL Cholesterol 60 TSH 15.50 H Free T4 0.31 L Free T3 pg/mL 1.52 L 08/27/18 08/27/18 05:25 06:18 WBC 6.6 RBC 2.55 L Hgb 8.1 L Hct 24.4 L MCV 96 MCH 31.8 MCHC 33.2 RDW 19.5 H Plt Count 192 Seg Neutrophils % Not Reportable Lymphocytes % Not Reportable Monocytes % Not Reportable Eosinophils % Not Reportable Basophils % Not Reportable Absolute Neutrophils Not Reportable Absolute Lymphocytes Not Reportable Absolute Monocytes Not Reportable Absolute Eosinophils Not Reportable Absolute Basophils Not Reportable Carbonic Acid 1.37 H HCO3/H2CO3 Ratio 20:1 ABG pH 7.41 ABG pCO2 45.6 H ABG pO2 137.0 H ABG HCO3 28.1 H ABG O2 Saturation 98.7 H ABG Base Excess 3.0 VBG pH VBG pCO2 VBG HCO3 VBG Base Excess FiO2 28% Sodium Potassium Chloride Carbon Dioxide Anion Gap BUN Creatinine Est GFR ( Amer) Est GFR (Non-Af Amer) Glucose Lactic Acid Calcium Magnesium Total Bilirubin AST ALT Alkaline Phosphatase Total Protein Albumin Triglycerides Cholesterol LDL Cholesterol Direct VLDL Cholesterol HDL Cholesterol TSH Free T4 Free T3 pg/mL 08/26/18 08/26/18 08/26/18 20:17 20:17 20:17 Creatine Kinase < 20 L CK-MB (CK-2) 1.01 Troponin I 0.022 Cancelled NT-Pro-B Natriuret Pep 08/27/18 08/27/18 08/27/18 04:03 04:03 13:59 Creatine Kinase < 20 L < 20 L CK-MB (CK-2) 0.89 Troponin I < 0.012 NT-Pro-B Natriuret Pep 578 H 08/27/18 13:59 Creatine Kinase CK-MB (CK-2) 0.79 Troponin I < 0.012 NT-Pro-B Natriuret Pep Impressions: Chest X-Ray 08/26/18 20:38 IMPRESSION: No acute disease. Assessment & Plan - Diagnosis (1) Acute and chronic respiratory failure Qualifiers: Respiratory failure complication: hypercapnia Qualified Code(s): J96.22 - Acute and chronic respiratory failure with hypercapnia Is this a current diagnosis for this admission?: Yes Plan: Patient status post BiPAP. She is off BiPAP now. She is doing good on nasal cannula. Check ABG in the morning. (2) COPD exacerbation Is this a current diagnosis for this admission?: Yes Plan: Continue aggressive pulmonary toilet and bronchodilators. Continue IV Solu- Medrol and Levaquin. (3) CHF with left ventricular diastolic dysfunction, NYHA class 1 Is this a current diagnosis for this admission?: Yes Plan: Continue home medications. (4) Coronary artery disease Qualifiers: Coronary Disease-Associated Artery/Lesion type: crow artery [place] vs. transplanted heart: crow heart Associated angina: angina presence unspecified Qualified Code(s): I25.10 - Atherosclerotic heart disease of crow coronary artery without angina pectoris Is this a current diagnosis for this admission?: Yes Plan: Continue home medications (5) Diabetes mellitus type 2 in obese Is this a current diagnosis for this admission?: Yes Plan: Continue to monitor glucose. Continue insulin sliding scale. (6) Essential hypertension Is this a current diagnosis for this admission?: Yes Plan: Continue home medications and monitor blood pressure (7) History of lung cancer Is this a current diagnosis for this admission?: Yes Plan: Follow-up with her oncologist outpatient after discharge (8) Hypothyroidism (acquired) Is this a current diagnosis for this admission?: Yes Plan: TSH elevated. Increase levothyroxine dose.
[2018-08-27] MEDS: NYSTATIN TOPICAL POWDER 15 GM TP SCH ×2 (17:57→18:03)
[2018-08-27 18:16] LABS: APPEARANCE,URINE CLOUDY; BILIRUBIN,URINE NEGATIVE (NEGATIVE); COLOR,URINE YELLOW; GLUCOSE, URINE NEGATIVE (NEGATIVE); KETONES,URINE NEGATIVE (NEGATIVE); LEUKOCYTE ESTERASE,URINE LARGE (NEGATIVE); NITRITE,URINE NEGATIVE (NEGATIVE); PROTEIN,URINE NEGATIVE (NEGATIVE); URINE SPECIFIC GRAVITY 1.013; UROBILINOGEN,URINE NEGATIVE mg/dL (<2.0)
[2018-08-27] MEDS: IPRATROPIUM/ALBUTEROL 0.5-2.5 MG/3 ML AMPUL NEB SCH (20:45)
[2018-08-27] MEDS ORDERED: POTASSIUM CHLORIDE 10 MEQ CAPSULE.ER PO SCH (22:00)
[2018-08-27] MEDS ORDERED: LEVOFLOXACIN 500 MG TABLET PO SCH (22:00)
[2018-08-28] MEDS: IPRATROPIUM BROMIDE 0.02% NEB 0.5 MG/2.5 ML AMPUL NEB SCH ×3 (00:41→16:50)
[2018-08-28] MEDS: LEVALBUTEROL HCL NEB 1.25 MG/3 ML AMPUL NEB SCH ×3 (00:41→16:50)
[2018-08-28] MEDS: IPRATROPIUM/ALBUTEROL 0.5-2.5 MG/3 ML AMPUL NEB SCH (02:13)
[2018-08-28] MEDS: HEPARIN SOD (PORCINE) 5,000 UNIT/ML 1 ML SYRINGE SUBCUT SCH ×3 (04:12→14:01)
[2018-08-28] MEDS: METHYLPREDNISOLONE INJ 40 MG/1 ML SDV IV SCH ×2 (05:59→14:01)
[2018-08-28] MEDS ORDERED: LEVOTHYROXINE SODIUM 0.025 MG TABLET PO SCH (06:00)
[2018-08-28] MEDS ORDERED: LEVOTHYROXINE SODIUM 0.1 MG TABLET PO SCH ×2 (06:00)
[2018-08-28] MEDS ORDERED: LEVOTHYROXINE SODIUM 0.112 MG TABLET PO SCH (06:00)
[2018-08-28 06:05] LABS: ARTERIAL BLOOD BASE EXCESS 3.1 mmol/L; ARTERIAL BLOOD H2CO3 1.28 mmol/L (1.05-1.35); ARTERIAL BLOOD HCO3 27.7 mmol/L (20-24); ARTERIAL BLOOD O2 SATURATION 98.5 % (94-98); ARTERIAL BLOOD PCO2 42.5 mmHg (35-45); ARTERIAL BLOOD PH 7.43 (7.35-7.45); ARTERIAL BLOOD PO2 121.7 mmHg (80-100)
[2018-08-28 06:06] LABS: ABSOLUTE LYMPHOCYTES (AUTO) 0.4 10^3/uL (0.5-4.7); ABSOLUTE MONOCYTES (AUTO) 0.3 10^3/uL (0.1-1.4); ABSOLUTE NEUT (AUTO) 7.1 10^3/uL (1.7-8.2); BASOPHILS % (AUTO) 0.2 % (0-2); HEMATOCRIT 22.9 % (36.0-47.0); LYMPHOCYTES % (AUTO) 5.6 % (13-45); MEAN CORPUSCULAR HEMOGLOBIN 31.8 pg (27.0-33.4); MEAN CORPUSCULAR HGB CONC 33.8 g/dL (32.0-36.0); MEAN CORPUSCULAR VOLUME 94 fl (80-97); MONOCYTES % (AUTO) 4.2 % (3-13); PLATELET COUNT 184 10^3/uL (150-450); RED BLOOD COUNT 2.44 10^6/uL (3.72-5.28); RED CELL DISTRIBUTION WIDTH 19.1 % (11.5-14.0); TOTAL CELLS COUNTED % (AUTO) 100 %; WHITE BLOOD COUNT 7.9 10^3/uL (4.0-10.5)
[2018-08-28 06:09] LABS: ARTERIAL BLOOD FIO2 2L
[2018-08-28 06:12] LABS: HEMOGLOBIN 7.8 g/dL (12.0-15.5)
[2018-08-28 06:19] LABS: BLOOD UREA NITROGEN 27 mg/dL (7-20); CALCIUM 8.8 mg/dL (8.4-10.2); GLUCOSE 114 mg/dL (75-110); POTASSIUM 4.9 mmol/L (3.6-5.0)
[2018-08-28 06:24] LABS: CARBON DIOXIDE 30 mmol/L (22-30); CHLORIDE 103 mmol/L (98-107); SODIUM 138.2 mmol/L (137-145)
[2018-08-28 06:28] LABS: ANION GAP 5 (5-19)
[2018-08-28] MEDS ORDERED: IPRATROPIUM/ALBUTEROL 0.5-2.5 MG/3 ML AMPUL NEB PRN (08:00)
[2018-08-28] MEDS: BUDESONIDE NEB 0.5 MG/2 ML AMPUL NEB SCH (08:16)
[2018-08-28] MEDS: CARVEDILOL 3.125 MG TABLET PO SCH (10:08)
[2018-08-28] MEDS: MULTIVITAMIN TABLET PO SCH (10:08)
[2018-08-28] MEDS: DOCUSATE SODIUM 100 MG CAPSULE PO SCH ×2 (10:08→17:19)
[2018-08-28] MEDS: FLUTICASONE NASAL SPRAY 50 MCG/SPRY 120 SPRAY/16 GM NASL SCH (10:09)
[2018-08-28] MEDS: METFORMIN HCL 500 MG TABLET PO SCH ×2 (10:09→17:20)
[2018-08-28] MEDS: OLOPATADINE HCL 0.1% OPH SOLN 5 ML OU SCH ×2 (10:09→17:20)
[2018-08-28] MEDS: FAMOTIDINE 20 MG TABLET PO SCH (10:09)
[2018-08-28] MEDS: TIOTROPIUM BROMIDE DPI 5 CAP/KIT (18 MCG/CAP) IH SCH (10:10)
[2018-08-28] MEDS: NYSTATIN TOPICAL POWDER 15 GM TP SCH ×2 (10:11→17:21)
[2018-08-28] MEDS: GUAIFENESIN 600 MG TABLET.SA PO SCH (10:12)
[2018-08-28] MEDS: INSULIN REG, HUMAN 100 UNIT/ML 3 ML VIAL (PYX) SUBCUT SCH ×2 (11:48→16:39)
--- NOTE | 2018-08-28 12:31 | PDOC DISCHARGE SUMMARY ---
General - Admit/Disc Date/PCP Admission Date/Primary Care Provider: 08/26/18 21:47 BAKARI VELARDE MD Discharge Date: 08/28/18 - Discharge Diagnosis (1) Acute and chronic respiratory failure Is this a current diagnosis for this admission?: Yes (2) COPD exacerbation Is this a current diagnosis for this admission?: Yes (3) CHF with left ventricular diastolic dysfunction, NYHA class 1 Is this a current diagnosis for this admission?: Yes (4) Coronary artery disease Is this a current diagnosis for this admission?: Yes (5) Diabetes mellitus type 2 in obese Is this a current diagnosis for this admission?: Yes (6) Essential hypertension Is this a current diagnosis for this admission?: Yes (7) History of lung cancer Is this a current diagnosis for this admission?: Yes (8) Hypothyroidism (acquired) Is this a current diagnosis for this admission?: Yes - Additional Information Resuscitation Status: Full Code Discharge Diet: Cardiac, Diabetic Discharge Activity: Activity As Tolerated Prescriptions: Albuterol Sulfate [Ventolin 0.083% Neb 2.5 mg/3 mL Ampul] 2.5 mg NEB Q4HP PRN 30 Days #60 vial.neb PRN Reason: Shortness Of Breath Budesonide [Pulmicort Neb 0.5 mg/2 ml Ampul] 0.5 mg NEB BID 30 Days #60 ampul.neb Fluticasone Propionate [Flonase Nasal [place] 50 Mcg/[place] 16 gm] 2 spray NASL Q12 30 Days #1 spray.pump Guaifenesin [Mucinex Sr 600 mg Tablet.sa] 600 mg PO Q12 30 Days #60 tablet.sa Ipratropium [place] [Atrovent 0.02% Neb 0.5 mg/2.5 ml Ampul] 0.5 mg NEB Q8H 30 Days #90 vial.neb Levalbuterol HCl [Xopenex Neb 1.25 mg/3 ml Ampul] 1.25 mg NEB Q8H 30 Days #90 vial.neb Levofloxacin [Levaquin 500 mg Tablet] 500 mg PO QHS 5 Days #5 tablet Levothyroxine Sodium [Levo-T] 150 mcg PO DAILY 30 Days #30 tablet Metformin HCl [Glucophage 500 mg Tablet] 500 mg PO BID 30 Days #60 tablet Metoprolol Succinate [Toprol Xl] 25 mg PO DAILY 30 Days #30 tab.er.24h Prednisone [Deltasone] 20 mg PO DAILY 3 Days #3 tablet Home Medications: Acetaminophen [Tylenol 325 mg Tablet] 325 mg PO Q4HP PRN 08/27/18 Albuterol Sulfate [Ventolin 0.083% Neb 2.5 mg/3 mL Ampul] 2.5 mg NEB Q4HP PRN 30 Days #60 vial.neb 08/27/18 Budesonide [Pulmicort Neb 0.5 mg/2 ml Ampul] 0.5 mg NEB BID 30 Days #60 ampul.neb 08/27/18 Fluticasone Propionate [Flonase Nasal [place] 50 Mcg/[place] 16 gm] 2 spray NASL Q12 30 Days #1 spray.pump 08/27/18 Guaifenesin [Mucinex Sr 600 mg Tablet.sa] 600 mg PO Q12 30 Days #60 tablet.sa 08/27/18 Ipratropium [place] [Atrovent 0.02% Neb 0.5 mg/2.5 ml Ampul] 0.5 mg NEB Q8H 30 Days #90 vial.neb 08/27/18 Levalbuterol HCl [Xopenex Neb 1.25 mg/3 ml Ampul] 1.25 mg NEB Q8H 30 Days #90 vial.neb 08/27/18 Levofloxacin [Levaquin 500 mg Tablet] 500 mg PO QHS 5 Days #5 tablet 08/27/18 Levothyroxine Sodium [Levo-T] 150 mcg PO DAILY 30 Days #30 tablet 08/27/18 Metformin HCl [Glucophage 500 mg Tablet] 500 mg PO BID 30 Days #60 tablet 08/27/18 Metoprolol Succinate [Toprol Xl] 25 mg PO DAILY 30 Days #30 tab.er.24h 08/27/18 Prednisone [Deltasone] 20 mg PO DAILY 3 Days #3 tablet 08/27/18 History of Present Illness History of Present Illness: TRENTON MCCOY is a 73 year old female who presented to the emergency room with a 1 day history of progressive dyspnea. She admits that she began having shortness of breath with a productive cough and a feeling of congestion and tightness in her chest while at home earlier on the day of admission. She was out of her albuterol nebulizer medications and did not get relief with her inhalers. Her symptoms worsened to the point where she felt that she was in severe distress and she called for EMS to bring her to the hospital. She has had numerous similar prior episodes with her COPD and was recently hospitalized. She has not identified any aggravating or ameliorating factors for her dyspnea. She has a history of COPD with chronic respiratory failure with hypoxia and uses oxygen at 2 L/min per nasal cannula at home. She received a DuoNeb treatment in the ambulance on the way to the hospital without significant improvement. In the emergency room she was found to have acute on chronic respiratory failure with hypoxia and hypercapnia which required treatment with BiPAP in order to obtain adequate oxygenation and provide her with relief of her significant respiratory distress. Her chest x-ray and CBC were unremarkable. She was subsequently admitted to the hospital for further evaluation and treatment of her acute on chronic respiratory failure. Hospital Course Hospital Course: Patient was initially started on BiPAP due to hypercapnia. Then she was taken off the BiPAP and did very well on nasal cannula. She continued with IV Solu- Medrol and was started on Levaquin empirically. She is being discharged on p.o. prednisone and oral Levaquin. Apparently last night she decided to go AGAINST MEDICAL ADVICE but her family would not come pick her up. Dr. Escobar who was covering last night actually put discharge orders and sent prescriptions to the pharmacy. Today she is stable and doing very well and could be discharged home. The family will come and take her to home today. Physical Exam Vital Signs: Temp Pulse Resp BP Pulse Ox 98.2 F 109 H 17 129/70 H 100 08/28/18 08:34 08/28/18 08:34 08/28/18 08:34 08/28/18 08:34 08/28/18 08:34 Intake & Output 08/27/18 08/28/18 08/29/18 06:59 06:59 06:59 Intake Total 317 2041 Balance 317 2041 Weight 167 lb 12.348 oz 168 lb 6.931 oz General appearance: PRESENT: no acute distress, cooperative Head exam: PRESENT: atraumatic, normocephalic Mouth exam: PRESENT: moist, neck supple Neck exam: ABSENT: meningismus, tenderness Respiratory exam: PRESENT: clear to auscultation jeff. ABSENT: accessory muscle use Cardiovascular exam: PRESENT: RRR Pulses: PRESENT: normal radial pulses GI/Abdominal exam: PRESENT: normal bowel sounds, soft Rectal exam: PRESENT: deferred Neurological exam: PRESENT: alert, awake, oriented to person, oriented to place, oriented to time, oriented to situation Results Laboratory Results: 08/28/18 05:40 08/28/18 05:40 08/27/18 08/28/18 08/28/18 17:48 05:40 05:40 WBC 7.9 RBC 2.44 L Hgb 7.8 L Hct 22.9 L MCV 94 MCH 31.8 MCHC 33.8 RDW 19.1 H Plt Count 184 Seg Neutrophils % 90.0 H Lymphocytes % 5.6 L Monocytes % 4.2 Eosinophils % 0.0 Basophils % 0.2 Absolute Neutrophils 7.1 Absolute Lymphocytes 0.4 L Absolute Monocytes 0.3 Absolute Eosinophils 0.0 Absolute Basophils 0.0 Carbonic Acid HCO3/H2CO3 Ratio ABG pH ABG pCO2 ABG pO2 ABG HCO3 ABG O2 Saturation ABG Base Excess FiO2 Sodium 138.2 Potassium 4.9 Chloride 103 Carbon Dioxide 30 Anion Gap 5 BUN 27 H Creatinine 1.02 Est GFR ( Amer) > 60 Est GFR (Non-Af Amer) 53 L Glucose 114 H Calcium 8.8 Magnesium 2.0 Urine Color YELLOW Urine Appearance CLOUDY Urine pH 6.0 Ur Specific [place] 1.013 Urine Protein NEGATIVE Urine Glucose (UA) NEGATIVE Urine Ketones NEGATIVE Urine Blood NEGATIVE Urine Nitrite NEGATIVE Ur Leukocyte Esterase LARGE H Urine WBC (Auto) 174 Urine RBC (Auto) 4 08/28/18 05:45 WBC RBC Hgb Hct MCV MCH MCHC RDW Plt Count Seg Neutrophils % Lymphocytes % Monocytes % Eosinophils % Basophils % Absolute Neutrophils Absolute Lymphocytes Absolute Monocytes Absolute Eosinophils Absolute Basophils Carbonic Acid 1.28 HCO3/H2CO3 Ratio 21:1 ABG pH 7.43 ABG pCO2 42.5 ABG pO2 121.7 H ABG HCO3 27.7 H ABG O2 Saturation 98.5 H ABG Base Excess 3.1 FiO2 2L Sodium Potassium Chloride Carbon Dioxide Anion Gap BUN Creatinine Est GFR ( Amer) Est GFR (Non-Af Amer) Glucose Calcium Magnesium Urine Color Urine Appearance Urine pH Ur Specific [place] Urine Protein Urine Glucose (UA) Urine Ketones Urine Blood Urine Nitrite Ur Leukocyte Esterase Urine WBC (Auto) Urine RBC (Auto) 08/26/18 08/26/18 08/26/18 20:17 20:17 20:17 Creatine Kinase < 20 L CK-MB (CK-2) 1.01 Troponin I 0.022 Cancelled NT-Pro-B Natriuret Pep 08/27/18 08/27/18 08/27/18 04:03 04:03 13:59 Creatine Kinase < 20 L < 20 L CK-MB (CK-2) 0.89 Troponin I < 0.012 NT-Pro-B Natriuret Pep 578 H 08/27/18 13:59 Creatine Kinase CK-MB (CK-2) 0.79 Troponin I < 0.012 NT-Pro-B Natriuret Pep Impressions: Chest X-Ray 08/26/18 20:38 IMPRESSION: No acute disease. Qualifiers - * PATIENT BEING DISCHARGED WITH ANY OF THE FOLLOWING DIAGNOSIS: No
[2018-08-28 16:29] VITALS: BP 115/69
== END 2018-08-28 18:39 | disposition home health service (06) | DRG 189 ==
LOC: ER 19:30 → EH 21:47 → 4N 08-27 22:18
PROVIDERS: ADMIT Emergency Medicine; ATTEND Emergency Medicine
PROC: 5A09457 Assistance with Respiratory Ventilation, 24-96 Consecutive Hours, Continuous Positive Airway Pressure (ICD-10-PCS; principal; 2018-08-26)
PROC: 3E0F73Z Introduction of Anti-inflammatory into Respiratory Tract, Via Natural or Artificial Opening (ICD-10-PCS; 2018-08-27)
PROC: 06HM33Z Insertion of Infusion Device into Right Femoral Vein, Percutaneous Approach (ICD-10-PCS; 2018-08-27)
PROC: 06JY3ZZ Inspection of Lower Vein, Percutaneous Approach (ICD-10-PCS; 2018-08-27)
DX: J96.22 Acute and chronic respiratory failure with hypercapnia (principal); J44.1 Chronic obstructive pulmonary disease with (acute) exacerbation; I50.30 Unspecified diastolic (congestive) heart failure; J96.21 Acute and chronic respiratory failure with hypoxia; E66.9 Obesity, unspecified; I11.0 Hypertensive heart disease with heart failure; E03.9 Hypothyroidism, unspecified; I25.10 Atherosclerotic heart disease of native coronary artery without angina pectoris; I48.91 Unspecified atrial fibrillation; K21.9 Gastro-esophageal reflux disease without esophagitis; M10.9 Gout, unspecified; F03.90 Unspecified dementia, unspecified severity, without behavioral disturbance, psychotic disturbance, mood disturbance, and anxiety; F32.9 Major depressive disorder, single episode, unspecified; E11.36 Type 2 diabetes mellitus with diabetic cataract; I25.2 Old myocardial infarction; Z87.891 Personal history of nicotine dependence; Z85.118 Personal history of other malignant neoplasm of bronchus and lung; Z79.899 Other long term (current) drug therapy; Z99.81 Dependence on supplemental oxygen; Z98.42 Cataract extraction status, left eye; Z98.41 Cataract extraction status, right eye; Z90.49 Acquired absence of other specified parts of digestive tract; Z88.1 Allergy status to other antibiotic agents; Z88.3 Allergy status to other anti-infective agents; Z85.841 Personal history of malignant neoplasm of brain; Z80.1 Family history of malignant neoplasm of trachea, bronchus and lung; Z83.6 Family history of other diseases of the respiratory system
CPT/HCPCS: 36415; 71045; 80048; 80053; 80061; 81001; 82550; 82553; 82803; 82962; 83036; 83605; 83735; 83880; 84439; 84443; 84481; 84484; 85025; 87040; 93005; 93010; 94660; C1751; J1644; J1815; J1956; J2060; J2920; J2930; J3475; J3480; J3490; J7620

== ENCOUNTER 2018-08-31 18:03 | Emergency (ER) | payer MEDICARE, OTHER ==
[2018-08-31] MEDS ORDERED: RINGERS SOLUTION,LACTATED 250 ML IV ONE ×2 (19:56→20:43)
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
--- NOTE | 2018-08-31 20:03 | RADIOLOGY REPORT (SQ) ---
EXAM DESCRIPTION: CHEST SINGLE VIEW COMPLETED DATE/TIME: 08/31/2018 7:54 pm REASON FOR STUDY: sob COMPARISON: 06/26/2018, 08/18/2018 EXAM PARAMETERS: NUMBER OF VIEWS: One view. TECHNIQUE: Single frontal radiographic view of the chest acquired. RADIATION DOSE: NA LIMITATIONS: None. FINDINGS: LUNGS AND PLEURA: No opacities, masses or pneumothorax. No pleural effusion. MEDIASTINUM AND HILAR STRUCTURES: Chronic changes in the right hilum. HEART AND VASCULAR STRUCTURES: Heart normal in size. Normal vasculature. BONES: No acute findings. HARDWARE: None in the chest. OTHER: No other significant finding. IMPRESSION: NO ACUTE RADIOGRAPHIC FINDING IN THE CHEST. TECHNICAL DOCUMENTATION: JOB ID: [id number] [email or web address]- All Rights Reserved Reading location - IP/workstation name: [email or web address]
[2018-08-31 20:15] LABS: ABSOLUTE BASOPHILS # (AUTO) 0.1 10^3/uL (0.0-0.2); ABSOLUTE EOSINOPHILS # (AUTO) 0.2 10^3/uL (0.0-0.6); ABSOLUTE MONOCYTES (AUTO) 0.6 10^3/uL (0.1-1.4); ABSOLUTE NEUT (AUTO) 4.7 10^3/uL (1.7-8.2); EOSINOPHILS % (AUTO) 3.7 % (0-6); HEMATOCRIT 25.5 % (36.0-47.0); HEMOGLOBIN 8.4 g/dL (12.0-15.5); LYMPHOCYTES % (AUTO) 15.3 % (13-45); MEAN CORPUSCULAR HEMOGLOBIN 31.9 pg (27.0-33.4); MEAN CORPUSCULAR VOLUME 97 fl (80-97); MONOCYTES % (AUTO) 8.6 % (3-13); PLATELET COUNT 200 10^3/uL (150-450); RED BLOOD COUNT 2.63 10^6/uL (3.72-5.28); RED CELL DISTRIBUTION WIDTH 19.2 % (11.5-14.0); SEGMENTED NEUTROPHILS % (AUTO) 71.4 % (42-78); TOTAL CELLS COUNTED % (AUTO) 100 %; WHITE BLOOD COUNT 6.6 10^3/uL (4.0-10.5)
[2018-08-31 20:34] LABS: BLOOD UREA NITROGEN 24 mg/dL (7-20); CALCIUM 8.4 mg/dL (8.4-10.2); GLUCOSE 125 mg/dL (75-110); POTASSIUM 3.4 mmol/L (3.6-5.0)
[2018-08-31 20:39] LABS: CARBON DIOXIDE 33 mmol/L (22-30); CHLORIDE 108 mmol/L (98-107); SODIUM 142.8 mmol/L (137-145)
[2018-08-31 20:42] LABS: ANION GAP 2 (5-19)
[2018-08-31 20:43] LABS: TROPONIN I 0.021 ng/mL
[2018-09-01 00:03] VITALS: BP 136/74
--- NOTE | 2018-09-01 08:48 | EKG REPORT ---
SEVERITY:- ABNORMAL ECG - SINUS TACHYCARDIA RIGHT BUNDLE BRANCH BLOCK : Confirmed by: Issa Martinez MD 01-Sep-2018 08:47:40
== END 2018-09-01 00:30 | disposition home or self-care (01) ==
LOC: ER 18:03
DX: R53.83 Other fatigue (principal); R06.02 Shortness of breath; R00.0 Tachycardia, unspecified; D50.9 Iron deficiency anemia, unspecified; J44.9 Chronic obstructive pulmonary disease, unspecified; I48.91 Unspecified atrial fibrillation; I50.9 Heart failure, unspecified; I25.10 Atherosclerotic heart disease of native coronary artery without angina pectoris; I25.2 Old myocardial infarction; I11.0 Hypertensive heart disease with heart failure; E11.9 Type 2 diabetes mellitus without complications; Z88.3 Allergy status to other anti-infective agents; Z90.49 Acquired absence of other specified parts of digestive tract; Z99.81 Dependence on supplemental oxygen; Z88.0 Allergy status to penicillin
CPT/HCPCS: 93005; 99285; 36415; 85025; 80048; 84484; 83880; 71045; 93010; J7120

== ENCOUNTER 2018-09-16 21:44 | Emergency (ER) | payer MEDICARE, OTHER ==
[2018-09-16] MEDS ORDERED: MORPHINE SULFATE 10 MG/ML INJ IV PRN (22:24)
[2018-09-16] MEDS ORDERED: RINGERS SOLUTION,LACTATED 500 ML IV ONE (22:25)
[2018-09-16] MEDS ORDERED: ONDANSETRON HCL INJ/PF 4 MG/2 ML SDV IV ONE (22:25)
--- NOTE | 2018-09-16 22:27 | ER Document Report ---
ED General - General Stated Complaint: ABDOMINAL PAIN Time Seen by Provider: 09/16/18 22:00 Primary Care Provider: BAKARI VELARDE MD [Primary Care Provider] - Follow up as needed Notes: Patient is a 73-year-old female with past medical history of COPD, diabetes, presents complaining of 2-3 days of lower abdominal pain more focal to the left lower quadrant as well as nausea and vomiting. She states that she has vomited up everything she is attempted to eat today. Her son did contact 911. She describes the pain in her lower abdomen as being a mild, aching, cramping discomfort. Nothing seems to improve or worsen her symptoms. States that she had similar symptoms in the past with diverticulitis. Has not seen her primary care physician regarding today's concerns. Has not had fever or constitutional symptoms. TRAVEL OUTSIDE OF THE [place] IN LAST 30 DAYS: No - Related Data Allergies/Adverse Reactions: azithromycin Allergy (Verified 08/26/18 23:36) amoxicillin [Amoxicillin] Adverse Reaction (Verified 08/26/18 23:36) visual hallucinations erythromycin base [Erythromycin Base] Adverse Reaction (Verified 08/26/18 23:36) visual hallucinations Potassium Clavulanate * [From Augmentin] Adverse Reaction (Verified 08/26/18 23:36) visual hallucinations Past Medical History - General Information source: Patient - Social History Smoking Status: Never Smoker Frequency of alcohol use: None Drug Abuse: None Lives with: Family Family History: Reviewed & Not Pertinent, COPD, Malignancy - Lung cancer - Past Medical History Cardiac Medical History: Reports: Hx Atrial Fibrillation, Hx Congestive Heart Failure, Hx Coronary Artery Disease, Hx Heart Attack, Hx Hypertension Denies: Hx DVT, Hx Hypercholesterolemia, Hx Pulmonary Embolism Pulmonary Medical History: Reports: Hx Asthma, Hx Bronchitis, Hx COPD, Hx Pneumonia, Hx Respiratory Failure - Chronic respiratory failure Denies: Hx Sleep Apnea, Hx Tuberculosis Neurological Medical History: Denies: Hx Seizures Endocrine Medical History: Reports: Hx Diabetes Mellitus Type 2, Hx Hypothyroidi sm. 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 Denies: Hx Cirrhosis, Hx Hepatitis, Hx Ulcer Musculoskeletal Medical History: Reports Hx Arthritis, Reports Hx Gout, Denies Hx Multiple Sclerosis, Reports Hx Musculoskeletal Deformity, Reports Hx Musculoskeletal Trauma Skin Medical History: Denies Hx Eczema, Denies Hx Psoriasis Psychiatric Medical History: Reports: Hx Dementia, Hx Depression Denies: Hx Bipolar Disorder, Hx Schizophrenia Infectious Medical History: Reports: Hx C-Diff. Denies: Hx Hepatitis Past Surgical History: Reports: Hx Cholecystectomy, Hx Orthopedic Surgery - Foot surgery, Other - cataract bilateral - Immunizations Hx Diphtheria, Pertussis, Tetanus Vaccination: Yes Hx Pneumococcal Vaccination: 08/30/12 Review of Systems - Review of Systems Notes: Constitutional: Negative for fever. HENT: Negative for sore throat. Eyes: Negative for visual changes. Cardiovascular: Negative for chest pain. Respiratory: Negative for shortness of breath. Gastrointestinal: Positive for abdominal pain and vomiting Genitourinary: Negative for dysuria. Musculoskeletal: Negative for back pain. Skin: Negative for rash. Neurological: Negative for headaches, weakness or numbness. 10 point ROS negative except as marked above and in HPI. Physical Exam - Vital signs Vitals: Pulse Ox 100 09/16/18 21:48 Interpretation: Normal Notes: PHYSICAL EXAMINATION: GENERAL: Well-appearing, well-nourished and in no acute distress. HEAD: Atraumatic, normocephalic. EYES: Pupils equal round and reactive to light, extraocular movements intact, sclera anicteric, conjunctiva are normal. ENT: nares patent, oropharynx clear without exudates. Moist mucous membranes. NECK: Normal range of motion, supple without lymphadenopathy LUNGS: Breath sounds clear to auscultation bilaterally and equal. No wheezes rales or rhonchi. HEART: Regular rate and rhythm without murmurs ABDOMEN: Soft, mild tenderness to palpation in the suprapubic and left lower quadrant regions, normoactive bowel sounds. No guarding, no rebound. No masses appreciated. EXTREMITIES: Normal range of motion, no pitting or edema. No cyanosis. NEUROLOGICAL: No focal neurological deficits. Moves all extremities spontaneously and on command. PSYCH: Normal mood, normal affect. SKIN: Warm, Dry, normal turgor, no rashes or lesions noted. Course - Re-evaluation Re-evalutation: 09/16/18 22:26 Patient presents with diffuse lower abdominal pain worse the left lower quadrant with associated vomiting. States this feels like when she had diverticulitis in the past. Patient is a very enjoyable personality, cursing about her family and laughing with me during examination and appears in no overt distress. She has some mild focal tenderness to the left lower quadrant but no areas of rebound or guarding. Will proceed with labs, CT abdomen pelvis, pain control and reassess. 09/17/18 02:47 CT the abdomen pelvis unremarkable. Urinalysis consistent with a cystitis versus pyelonephritis. Culture has been sent and patient has been started on ceftriaxone here in the emergency department and a 7-day course of cephalexin as an outpatient. Patient has tolerated oral intake here in the emergency department without difficulty. Vitals remain within acceptable limits. At this time will discharge with return precautions and follow-up recommendations. Verbal discharge instructions given a the bedside and opportunity for questions given. Medication warnings reviewed. Patient is in agreement with this plan and has verbalized understanding of return precautions and the need for primary care follow-up in the next 24-72 hours. - Vital Signs Vital signs: Temp Pulse Resp BP Pulse Ox 98.4 F 94 15 123/70 100 09/16/18 22:00 09/16/18 22:00 09/17/18 02:00 09/16/18 22:00 09/17/18 02:00 - Laboratory Result Diagrams: 09/16/18 23:52 09/16/18 23:52 Laboratory results interpreted by me: 09/16/18 09/16/18 09/17/18 23:52 23:52 01:36 RBC 2.63 L Hgb 8.7 L Hct 25.8 L MCV 98 H RDW 18.2 H Seg Neutrophils % 89.6 H Lymphocytes % 5.1 L BUN 21 H Glucose 196 H Total Protein 4.8 L Albumin 2.9 L Urine Nitrite POSITIVE H Ur Leukocyte Esterase LARGE H - Diagnostic Test Radiology reviewed: Reports reviewed Discharge - Discharge Clinical Impression: Lower abdominal pain UTI (urinary tract infection) Qualifiers: Urinary tract infection type: acute cystitis Hematuria presence: without hematuria Qualified Code(s): N30.00 - Acute cystitis without hematuria Nausea and vomiting Qualifiers: Vomiting type: unspecified Vomiting Intractability: non-intractable Qualified Code(s): R11.2 - Nausea with vomiting, unspecified Anemia Qualifiers: Anemia type: unspecified type Qualified Code(s): D64.9 - Anemia, unspecified Condition: Stable Disposition: HOME, SELF-CARE Additional Instructions: Your urine shows findings consistent with a urinary tract infection. Please take all the antibiotics as directed even if your symptoms have improved. Please follow-up with your primary care doctor within the next 24-48 hours. Return to emergency room if you develop fever >101F, persistent vomiting, become lethargic, have severe pain in your sides, or any other symptoms that are concerning to you. Prescriptions: Cephalexin Monohydrate [Keflex 500 mg Capsule] 500 mg PO Q6H 7 Days capsule Referrals: BAKARI VELARDE MD [Primary Care Provider] - Follow up in 3-5 days
[2018-09-17 00:09] LABS: ABSOLUTE EOSINOPHILS # (AUTO) 0.1 10^3/uL (0.0-0.6); ABSOLUTE LYMPHOCYTES (AUTO) 0.5 10^3/uL (0.5-4.7); ABSOLUTE MONOCYTES (AUTO) 0.3 10^3/uL (0.1-1.4); ABSOLUTE NEUT (AUTO) 7.9 10^3/uL (1.7-8.2); BASOPHILS % (AUTO) 0.3 % (0-2); EOSINOPHILS % (AUTO) 1.3 % (0-6); HEMATOCRIT 25.8 % (36.0-47.0); HEMOGLOBIN 8.7 g/dL (12.0-15.5); LYMPHOCYTES % (AUTO) 5.1 % (13-45); MEAN CORPUSCULAR HEMOGLOBIN 32.9 pg (27.0-33.4); MEAN CORPUSCULAR HGB CONC 33.5 g/dL (32.0-36.0); MEAN CORPUSCULAR VOLUME 98 fl (80-97); MONOCYTES % (AUTO) 3.7 % (3-13); PLATELET COUNT 198 10^3/uL (150-450); RED BLOOD COUNT 2.63 10^6/uL (3.72-5.28); RED CELL DISTRIBUTION WIDTH 18.2 % (11.5-14.0); SEGMENTED NEUTROPHILS % (AUTO) 89.6 % (42-78); TOTAL CELLS COUNTED % (AUTO) 100 %; WHITE BLOOD COUNT 8.8 10^3/uL (4.0-10.5)
[2018-09-17 00:26] LABS: ALANINE AMINOTRANSFERASE 34 U/L (9-52); ALBUMIN 2.9 g/dL (3.5-5.0); ALKALINE PHOSPHATASE 89 U/L (38-126); ANION GAP 8 (5-19); ASPARTATE AMINO TRANSFERASE 20 U/L (14-36); BILIRUBIN,DIRECT 0.2 mg/dL (0.0-0.4); BILIRUBIN,TOTAL 0.2 mg/dL (0.2-1.3); BLOOD UREA NITROGEN 21 mg/dL (7-20); CALCIUM 8.8 mg/dL (8.4-10.2); CARBON DIOXIDE 29 mmol/L (22-30); CHLORIDE 102 mmol/L (98-107); GLUCOSE 196 mg/dL (75-110); LIPASE 98.6 U/L (23-300); SODIUM 139.2 mmol/L (137-145); TOTAL PROTEIN 4.8 g/dL (6.3-8.2)
--- NOTE | 2018-09-17 01:20 | EKG REPORT ---
SEVERITY:- ABNORMAL ECG - SINUS RHYTHM INCOMPLETE RIGHT BUNDLE BRANCH BLOCK : Confirmed by: Susan Mishra MD 17-Sep-2018 01:19:33
--- NOTE | 2018-09-17 01:44 | RADIOLOGY REPORT (SQ) ---
CT ABDOMEN PELVIS WITHOUT IV CONTRAST HISTORY: Lower abdominal pain. Vomiting. COMPARISON: None. TECHNIQUE: CT scan of the abdomen and pelvis without IV contrast. This exam was performed according to our departmental dose-optimization program, which includes automated exposure control, adjustment of the mA and/or kV according to patient size and/or use of iterative reconstruction technique. FINDINGS: There is a trace right pleural effusion. Small pericardial effusion is also seen. No hiatal hernia. Status post cholecystectomy with pneumobilia, presumably postsurgical. The spleen, pancreas, adrenal glands, and kidneys are unremarkable. Simple cyst is seen in the right kidney. The pelvic organs are also unremarkable. There are scattered colonic diverticula without surrounding inflammatory changes. Appendix is not seen. No intraperitoneal free fluid or free air is seen. There are no acute osseous findings. The aorta is normal caliber and contains atherosclerotic calcifications. IMPRESSION: No acute abdominal or pelvic pathology.
[2018-09-17] MEDS ORDERED: ONDANSETRON HCL INJ/PF 4 MG/2 ML SDV ONE (01:45)
[2018-09-17 02:37] LABS: APPEARANCE,URINE CLOUDY; BILIRUBIN,URINE NEGATIVE (NEGATIVE); COLOR,URINE YELLOW; GLUCOSE, URINE NEGATIVE (NEGATIVE); KETONES,URINE NEGATIVE (NEGATIVE); LEUKOCYTE ESTERASE,URINE LARGE (NEGATIVE); NITRITE,URINE POSITIVE (NEGATIVE); PROTEIN,URINE NEGATIVE (NEGATIVE); URINE SPECIFIC GRAVITY 1.018; UROBILINOGEN,URINE NEGATIVE mg/dL (<2.0)
[2018-09-17] MEDS ORDERED: CEFTRIAXONE INJ 1000 MG VIAL IV ONE (02:44)
[2018-09-17] MEDS ORDERED: CEFTRIAXONE 1 GM/D5W RTU 1 GM/50 ML RTUPB IV ONE (02:49)
[2018-09-17 03:43] VITALS: BP 141/74
== END 2018-09-17 03:42 | disposition home or self-care (01) ==
LOC: ER 21:44
DX: N30.00 Acute cystitis without hematuria (principal); D64.9 Anemia, unspecified; R11.2 Nausea with vomiting, unspecified; R10.30 Lower abdominal pain, unspecified; R10.9 Unspecified abdominal pain; R10.32 Left lower quadrant pain; J44.9 Chronic obstructive pulmonary disease, unspecified; E11.9 Type 2 diabetes mellitus without complications; I50.9 Heart failure, unspecified; I25.10 Atherosclerotic heart disease of native coronary artery without angina pectoris; I11.0 Hypertensive heart disease with heart failure
CPT/HCPCS: 93005; 99284; 36415; 87086; 83690; 85025; 87088; 80053; 81001; 84484; 87186; 74176; 93010; J2270; J0696; J2405; J7120

== ENCOUNTER 2018-09-22 18:27 | Emergency (ER) | payer MEDICARE, OTHER ==
[2018-09-22] MEDS ORDERED: IPRATROPIUM/ALBUTEROL 0.5-2.5 MG/3 ML AMPUL NEB ONE (19:19)
--- NOTE | 2018-09-22 19:26 | ER Document Report ---
ED General - General Chief Complaint: Abdominal Pain Stated Complaint: ABDOMINAL PAIN Time Seen by Provider: 09/22/18 19:11 Primary Care Provider: BAKARI VELARDE MD [Primary Care Provider] - Follow up as needed Notes: Patient is a 73 year old female that comes to the Emergency Department for chief complaint of abdominal pain. When asked where the pain is located, she points to her mid abdomen. She tells me she had a bowel movement yesterday which was hard, nonbloody. She denies fever chills, states she ate earlier today without any difficulty. Denies chest pain, increased difficulty breathing, or flank pain. Past medical history of cholecystectomy, CAD, CHF, COPD, atrial fibrillation, diabetes. Patient lives at home with her daughter, came by EMS. TRAVEL OUTSIDE OF THE [place] IN LAST 30 DAYS: No - Related Data Allergies/Adverse Reactions: azithromycin Allergy (Verified 08/26/18 23:36) amoxicillin [Amoxicillin] Adverse Reaction (Verified 08/26/18 23:36) visual hallucinations erythromycin base [Erythromycin Base] Adverse Reaction (Verified 08/26/18 23:36) visual hallucinations Potassium Clavulanate * [From Augmentin] Adverse Reaction (Verified 08/26/18 23:36) visual hallucinations Past Medical History - General Information source: Patient - Social History Smoking Status: Former Smoker Chew tobacco use (# tins/day): No Frequency of alcohol use: None Drug Abuse: None Lives with: Family Family History: Reviewed & Not Pertinent, COPD, Malignancy - Lung cancer Patient has suicidal ideation: No Patient has homicidal ideation: No - Past Medical History Cardiac Medical History: Reports: Hx Atrial Fibrillation, Hx Congestive Heart Failure, Hx Coronary Artery Disease, Hx Heart Attack, Hx Hypertension Denies: Hx DVT, Hx Hypercholesterolemia, Hx Pulmonary Embolism Pulmonary Medical History: Reports: Hx Asthma, Hx Bronchitis, Hx COPD, Hx Pneumonia, Hx Respiratory Failure - Chronic respiratory failure Denies: Hx Sleep Apnea, Hx Tuberculosis Neurological Medical History: Denies: Hx Seizures Endocrine Medical History: Reports: Hx Diabetes Mellitus Type 2, Hx Hypothyroidism. 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 Denies: Hx Cirrhosis, Hx Hepatitis, Hx Ulcer Musculoskeletal Medical History: Reports Hx Arthritis, Reports Hx Gout, Denies Hx Multiple Sclerosis, Reports Hx Musculoskeletal Deformity, Reports Hx Musculoskeletal Trauma Skin Medical History: Denies Hx Eczema, Denies Hx Psoriasis Psychiatric Medical History: Reports: Hx Dementia, Hx Depression Denies: Hx Bipolar Disorder, Hx Schizophrenia Infectious Medical History: Reports: Hx C-Diff. Denies: Hx Hepatitis Past Surgical History: Reports: Hx Cholecystectomy, Hx Orthopedic Surgery - Foot surgery, Other - cataract bilateral - Immunizations Hx Diphtheria, Pertussis, Tetanus Vaccination: Yes Hx Pneumococcal Vaccination: 08/30/12 Review of Systems - Review of Systems Constitutional: No symptoms reported EENT: No symptoms reported Cardiovascular: No symptoms reported Respiratory: No symptoms reported Gastrointestinal: See HPI Genitourinary: No symptoms reported Female Genitourinary: No symptoms reported Musculoskeletal: No symptoms reported Skin: No symptoms reported Hematologic/Lymphatic: No symptoms reported Neurological/Psychological: No symptoms reported Physical Exam - Vital signs Vitals: Resp Pulse Ox 23 H 91 L 09/22/18 16:50 09/22/18 16:50 - Notes Notes: GENERAL: Alert, smiling, talkative, well-appearing HEAD: Normocephalic, atraumatic. EYES: Pupils equal, round, and reactive to light. Extraocular movements intact. ENT: Oral mucosa moist, tongue midline. Oropharynx unremarkable. Airway patent. Nares patent, no nasal septal hematoma, TM's intact. NECK: Full range of motion. Supple. Trachea midline. LUNGS: Clear to auscultation bilaterally, no wheezes, rales, or rhonchi. No respiratory distress. HEART: Regular rate and rhythm. No murmur ABDOMEN: Obese abdomen. No tenderness noted over exam, no distention, no rigidity, no guarding. GENITOURINARY: No rash or concerning abnormality noted. EXTREMITIES: Moves all 4 extremities spontaneously. No edema, normal radial and dorsalis pedis pulses bilaterally. No cyanosis. BACK: no cervical, thoracic, lumbar midline tenderness. No saddle anesthesia, normal distal neurovascular exam. NEUROLOGICAL: Alert and oriented x3. Normal speech. [cranial nerves II through XII grossly intact]. PSYCH: Normal affect, normal mood. SKIN: Warm, dry, normal turgor. No rashes or lesions noted. Course - Re-evaluation Re-evalutation: Patient is smiling, alert, talkative, well-appearing. Unremarkable vital signs. Soft benign abdomen. CBC unremarkable, chemistry unremarkable, urinalysis on unremarkable. Anemia is unchanged from prior. Acute abdominal series showing large amount of retained stool but no obstruction, no free air, no concerning findings otherwise. On reexamination patient still has a completely nontender abdomen. As result no further imaging was pursued. I discussed options with patient. After discussion of options patient elected to have an enema performed and to continue stool softeners at home afterwards. 09/22/18 23:26 Patient declines urinalysis, enema has been completed and patient had excellent results. Patient has no current complaints. Patient is requesting to leave now. She denies any urinary symptoms. She does not have a fever or leukocytosis. Patient provided with stool softener, discussed expectations, follow-up, and return precautions. Patient states understanding and agreement. Stable at time of discharge. - Vital Signs Vital signs: Temp Pulse Resp BP Pulse Ox 97.7 F 87 19 125/75 100 09/22/18 18:40 09/22/18 18:40 09/23/18 00:03 09/23/18 00:03 09/23/18 00:03 - Laboratory Result Diagrams: 09/22/18 19:30 09/22/18 19:30 Laboratory results interpreted by me: 09/22/18 09/22/18 19:30 19:30 RBC 2.61 L Hgb 8.6 L Hct 25.7 L MCV 99 H RDW 16.4 H Monocytes % 14.8 H Carbon Dioxide 34 H Glucose 118 H Total Protein 5.1 L Albumin 3.0 L Discharge - Discharge Clinical Impression: Abdominal pain Qualifiers: Abdominal location: generalized Qualified Code(s): R10.84 - Generalized abdominal pain Condition: Stable Disposition: HOME, SELF-CARE Additional Instructions: The laboratory workup and evaluation today are reassuring. Your imaging shows a large retained stool. You have received a soapsuds and mineral oil enema with a lot of results, you will most likely passed a lot more stool at home, I also recommend the stool softener provided for the next several days as well. Follow-up closely with primary care. Return if you worsen including vomiting, severe abdominal pain, fever, or any other concerning or worsening symptoms. Referrals: BAKARI VELARDE MD [Primary Care Provider] - Follow up as needed
[2018-09-22 19:44] LABS: ABSOLUTE EOSINOPHILS # (AUTO) 0.2 10^3/uL (0.0-0.6); ABSOLUTE LYMPHOCYTES (AUTO) 0.8 10^3/uL (0.5-4.7); ABSOLUTE MONOCYTES (AUTO) 0.7 10^3/uL (0.1-1.4); ABSOLUTE NEUT (AUTO) 2.9 10^3/uL (1.7-8.2); BASOPHILS % (AUTO) 0.6 % (0-2); EOSINOPHILS % (AUTO) 3.6 % (0-6); HEMATOCRIT 25.7 % (36.0-47.0); HEMOGLOBIN 8.6 g/dL (12.0-15.5); LYMPHOCYTES % (AUTO) 17.5 % (13-45); MEAN CORPUSCULAR HEMOGLOBIN 32.9 pg (27.0-33.4); MEAN CORPUSCULAR HGB CONC 33.4 g/dL (32.0-36.0); MEAN CORPUSCULAR VOLUME 99 fl (80-97); MONOCYTES % (AUTO) 14.8 % (3-13); PLATELET COUNT 197 10^3/uL (150-450); RED BLOOD COUNT 2.61 10^6/uL (3.72-5.28); RED CELL DISTRIBUTION WIDTH 16.4 % (11.5-14.0); SEGMENTED NEUTROPHILS % (AUTO) 63.5 % (42-78); TOTAL CELLS COUNTED % (AUTO) 100 %; WHITE BLOOD COUNT 4.5 10^3/uL (4.0-10.5)
[2018-09-22 19:59] LABS: ALANINE AMINOTRANSFERASE 23 U/L (9-52); ALKALINE PHOSPHATASE 60 U/L (38-126); ANION GAP 5 (5-19); ASPARTATE AMINO TRANSFERASE 26 U/L (14-36); BILIRUBIN,DIRECT 0.3 mg/dL (0.0-0.4); BILIRUBIN,TOTAL 0.3 mg/dL (0.2-1.3); BLOOD UREA NITROGEN 17 mg/dL (7-20); CALCIUM 8.7 mg/dL (8.4-10.2); CARBON DIOXIDE 34 mmol/L (22-30); CHLORIDE 102 mmol/L (98-107); GLUCOSE 118 mg/dL (75-110); LIPASE 52.2 U/L (23-300); SODIUM 140.6 mmol/L (137-145); TOTAL PROTEIN 5.1 g/dL (6.3-8.2)
--- NOTE | 2018-09-22 20:34 | RADIOLOGY REPORT (SQ) ---
EXAM DESCRIPTION: XR ABDOMEN SUPINE AND ERECT WITH CHEST (ABD ACUTE SERIES) COMPLETED DATE/TME: 09/22/2018 19:20 CLINICAL HISTORY: 73 years, Female, mid abd pain COMPARISON: Chest x-ray 08/31/2018 NUMBER OF VIEWS: 3 TECHNIQUE: Upright chest with supine and erect views of the abdomen LIMITATIONS: None. FINDINGS: Heart size is normal. Stable blunting of the costophrenic angles consistent with tiny effusions and/or pleural thickening. Stable spiculated density in the right hilar region likely reflecting scarring given its stability. No free air under the hemidiaphragms. Bowel gas pattern nonspecific. Large amount of stool in the colon. Vascular calcification. Osteopenia. Status post cholecystectomy IMPRESSION: No acute cardiopulmonary process. Large amount of stool in the colon copyright 2010 [email or web address]- All Rights Reserved
[2018-09-22] MEDS ORDERED: MINERAL OIL 30 ML UDCUP PR ONE (20:47)
[2018-09-22] MEDS ORDERED: MINERAL OIL 30 ML UDCUP ONE (23:01)
[2018-09-23 00:35] VITALS: BP 125/75
== END 2018-09-23 00:35 | disposition home or self-care (01) ==
LOC: ER 18:27
DX: K59.00 Constipation, unspecified (principal); R10.84 Generalized abdominal pain; D64.9 Anemia, unspecified; I10 Essential (primary) hypertension; I25.10 Atherosclerotic heart disease of native coronary artery without angina pectoris; E11.9 Type 2 diabetes mellitus without complications; J44.9 Chronic obstructive pulmonary disease, unspecified; Z88.1 Allergy status to other antibiotic agents; Z88.0 Allergy status to penicillin; Z87.891 Personal history of nicotine dependence; Z90.49 Acquired absence of other specified parts of digestive tract
CPT/HCPCS: 94640; 99285; 36415; 83690; 85025; 80053; 74022; J3490; A9270; J7620

== ENCOUNTER 2018-09-29 20:41 | Emergency (ER) | payer MEDICARE, OTHER ==
[2018-09-29] MEDS ORDERED: FUROSEMIDE INJ/PF 20 MG/2 ML SDV IV ONE (21:31)
--- NOTE | 2018-09-29 21:41 | ER Document Report ---
ED General - General Chief Complaint: Swelling of Lower Extremity Stated Complaint: SWELLING/FEET Time Seen by Provider: 09/29/18 21:28 Primary Care Provider: BAKARI VELARDE MD [Primary Care Provider] - Follow up tomorrow Notes: Patient is a 73-year-old female with past medical history of diastolic heart failure, COPD with oxygen dependency, hypertension, resents complaining of several days of increasing bilateral lower extremity edema as well as increasing shortness of breath. Patient states that she has not had furosemide in the past 3-4 days and attributes this to the cause of her increased bilateral lower extremity swelling and her shortness of breath. Nothing seems to improve or worsen her symptoms since onset. She states that her symptoms have been gradually worsening since onset. Has not seen her primary care physician regarding today's concerns. Denies chest pain, fever or constitutional symp toms. Does note a dull, throbbing, constant discomfort the bilateral lower extremities equal on both sides. TRAVEL OUTSIDE OF THE [place] IN LAST 30 DAYS: No - Related Data Allergies/Adverse Reactions: azithromycin Allergy (Verified 09/29/18 20:56) amoxicillin [Amoxicillin] Adverse Reaction (Verified 09/29/18 20:56) visual hallucinations erythromycin base [Erythromycin Base] Adverse Reaction (Verified 09/29/18 20:56) visual hallucinations Potassium Clavulanate * [From Augmentin] Adverse Reaction (Verified 09/29/18 20:56) visual hallucinations Past Medical History - General Information source: Patient - Social History Smoking Status: Former Smoker Frequency of alcohol use: None Drug Abuse: None Lives with: Family Family History: Reviewed & Not Pertinent, COPD, Malignancy - Lung cancer Patient has suicidal ideation: No Patient has homicidal ideation: No - Past Medical History Cardiac Medical History: Reports: Hx Atrial Fibrillation, Hx Congestive Heart Failure, Hx Coronary Artery Disease, Hx Heart Attack, Hx Hypertension Denies: Hx DVT, Hx Hypercholesterolemia, Hx Pulmonary Embolism Pulmonary Medical History: Reports: Hx Asthma, Hx Bronchitis, Hx COPD, Hx Pneumonia, Hx Respiratory Failure - Chronic respiratory failure Denies: Hx Sleep Apnea, Hx Tuberculosis Neurological Medical History: Denies: Hx Seizures Endocrine Medical History: Reports: Hx Diabetes Mellitus Type 2, Hx Hypothyroidism. 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 Denies: Hx C irrhosis, Hx Hepatitis, Hx Ulcer Musculoskeletal Medical History: Reports Hx Arthritis, Reports Hx Gout, Denies Hx Multiple Sclerosis, Reports Hx Musculoskeletal Deformity, Reports Hx Musculoskeletal Trauma Skin Medical History: Denies Hx Eczema, Denies Hx Psoriasis Psychiatric Medical History: Reports: Hx Dementia, Hx Depression Denies: Hx Bipolar Disorder, Hx Schizophrenia Infectious Medical History: Reports: Hx C-Diff. Denies: Hx Hepatitis Past Surgical History: Reports: Hx Cholecystectomy, Hx Orthopedic Surgery - Foot surgery, Other - cataract bilateral - Immunizations Hx Diphtheria, Pertussis, Tetanus Vaccination: Yes Hx Pneumococcal Vaccination: 08/30/12 Review of Systems - Review of Systems Notes: Constitutional: Negative for fever. HENT: Negative for sore throat. Eyes: Negative for visual changes. Cardiovascular: Negative for chest pain. Respiratory: Positive for shortness of breath. Gastrointestinal: Negative for abdominal pain, vomiting or diarrhea. Genitourinary: Negative for dysuria. Musculoskeletal: Positive for bilateral lower extremity edema and pain Skin: Negative for rash. Neurological: Negative for headaches, weakness or numbness. 10 point ROS negative except as marked above and in HPI. Physical Exam - Vital signs Vitals: Pulse 80 09/29/18 20:41 Interpretation: Normal Notes: PHYSICAL EXAMINATION: GENERAL: Well-appearing, well-nourished and in no acute distress. HEAD: Atraumatic, normocephalic. EYES: Pupils equal round and reactive to light, extraocular movements intact, sclera anicteric, conjunctiva are normal. ENT: nares patent, oropharynx clear without exudates. Moist mucous membranes. NECK: Normal range of motion, supple without lymphadenopathy LUNGS: Breath sounds clear to auscultation bilaterally and equal. Faint expiratory wheezing in all lung curtis. HEART: Regular rate and rhythm without murmurs ABDOMEN: Soft, nontender, normoactive bowel sounds. No guarding, no rebound. No masses appreciated. EXTREMITIES: Normal range of motion, 3+ pitting edema in the bilateral lower extremities that is equal and symmetric. No cyanosis. NEUROLOGICAL: No focal neurological deficits. Moves all extremities spontaneously and on command. PSYCH: Normal mood, normal affect. SKIN: Warm, Dry, normal turgor, no rashes or lesions noted. Course - Re-evaluation Re-evalutation: 09/29/18 21:32 Patient presents with swelling in the bilateral lower extremities as well as increased shortness of breath. Has a known history of CHF, states she has been out of her furosemide for at least 3 days. On exam patient has 3+ pitting edema in the bilateral lower extremities that is equal and symmetric. She has faint wheezing in all lung curtis although I seen her on multiple occasions and this is quite baseline. Will obtain labs, chest x-ray and reassess 09/29/18 22:54 Labs are at baseline. BNP within similar range as to the patient's previous. Chest x-ray without evidence of pulmonary edema. Vitals are within acceptable limits. Patient will be discharged home with a prescription for furosemide. At this time will discharge with return precautions and follow-up recommendations. Verbal discharge instructions given a the bedside and opportunity for questions given. Medication warnings reviewed. Patient is in agreement with this plan and has verbalized understanding of return precautions and the need for primary care follow-up in the next 24-72 hours. - Vital Signs Vital signs: Temp Pulse Resp BP Pulse Ox 98.2 F 100 22 H 121/65 100 09/29/18 23:30 09/29/18 23:30 09/29/18 23:30 09/29/18 23:30 09/29/18 23:30 - Laboratory Result Diagrams: 09/29/18 21:57 09/29/18 21:57 Laboratory results interpreted by me: 09/29/18 09/29/18 09/29/18 21:57 21:57 21:57 RBC 2.60 L Hgb 8.6 L Hct 25.0 L RDW 15.6 H Carbon Dioxide 33 H NT-Pro-B Natriuret Pep 1750 H - Diagnostic Test Radiology reviewed: Image reviewed, Reports reviewed Radiology results interpreted by me: 09/29/18 22:54 Chest x-ray: No acute infiltrate or pneumothorax - EKG Interpretation by Me Additional EKG results interpreted by me: 09/30/18 03:39 Sinus rhythm, rate 95. No ST elevations or depressions. QTC 468. Discharge - Discharge Clinical Impression: Shortness of breath, Bilateral lower extremity edema, Megan rash of groin Diastolic heart failure Qualifiers: Heart failure chronicity: chronic Qualified Code(s): I50.32 - Chronic diastolic (congestive) heart failure Condition: Stable Disposition: HOME, SELF-CARE Additional Instructions: Your labs are unchanged from your previous, there is no fluid in your chest x- ray. Your safe to go home you have been restarted on Lasix. Please follow-up closely with your primary care physician for long-term continuation of this medication as you require monitoring of your kidney function and electrolytes to remain on this medication long-term. Return if you develop worsening shortness of breath, worsening of swelling in legs, develop chest pain, pass out or have any other symptoms that are worrisome to you. Please wear the compression stockings had been applied here at least 12 hours daily which will help reduce the swelling in your legs and make the Lasix more effective. Apply the nystatin powder to the groin region twice daily for the next 2 weeks or until the rash has resolved. Prescriptions: Furosemide [Lasix 20 mg Tablet] 20 mg PO QAM #30 tablet Nystatin 1 each MC BID 14 Days #1 powder.ea. Referrals: BAKARI VELARDE MD [Primary Care Provider] - Follow up tomorrow
[2018-09-29 22:08] LABS: ABSOLUTE EOSINOPHILS # (AUTO) 0.2 10^3/uL (0.0-0.6); ABSOLUTE LYMPHOCYTES (AUTO) 0.9 10^3/uL (0.5-4.7); ABSOLUTE MONOCYTES (AUTO) 0.5 10^3/uL (0.1-1.4); ABSOLUTE NEUT (AUTO) 2.6 10^3/uL (1.7-8.2); BASOPHILS % (AUTO) 0.7 % (0-2); HEMOGLOBIN 8.6 g/dL (12.0-15.5); LYMPHOCYTES % (AUTO) 20.3 % (13-45); MEAN CORPUSCULAR HEMOGLOBIN 33.1 pg (27.0-33.4); MEAN CORPUSCULAR HGB CONC 34.4 g/dL (32.0-36.0); MEAN CORPUSCULAR VOLUME 96 fl (80-97); MONOCYTES % (AUTO) 12.6 % (3-13); PLATELET COUNT 248 10^3/uL (150-450); RED CELL DISTRIBUTION WIDTH 15.6 % (11.5-14.0); SEGMENTED NEUTROPHILS % (AUTO) 61.4 % (42-78); TOTAL CELLS COUNTED % (AUTO) 100 %; WHITE BLOOD COUNT 4.3 10^3/uL (4.0-10.5)
[2018-09-29 22:19] LABS: ANION GAP 6 (5-19); BLOOD UREA NITROGEN 11 mg/dL (7-20); CALCIUM 9.2 mg/dL (8.4-10.2); CARBON DIOXIDE 33 mmol/L (22-30); CHLORIDE 104 mmol/L (98-107); GLUCOSE 96 mg/dL (75-110); POTASSIUM 3.9 mmol/L (3.6-5.0); SODIUM 143.4 mmol/L (137-145)
--- NOTE | 2018-09-29 22:30 | RADIOLOGY REPORT (SQ) ---
XR CHEST 1 VIEW HISTORY: sob. COMPARISON: 08/31/2018 FINDINGS: The heart size is normal. There are chronic fibrotic changes in the right perihilar region. There is also atelectasis at the left lung base. No pleural effusions or pneumothorax is seen. No acute bony findings. IMPRESSION: No evidence of acute cardiopulmonary disease.
[2018-09-29 22:32] LABS: TROPONIN I 0.017 ng/mL
[2018-09-29 23:32] VITALS: BP 121/65
--- NOTE | 2018-09-30 22:54 | EKG REPORT ---
SEVERITY:- ABNORMAL ECG - SINUS RHYTHM IVCD, CONSIDER ATYPICAL RBBB : Confirmed by: Mercedes Solomon 30-Sep-2018 22:53:52
== END 2018-09-29 23:32 | disposition home or self-care (01) ==
LOC: ER 20:41
DX: I11.0 Hypertensive heart disease with heart failure (principal); I50.32 Chronic diastolic (congestive) heart failure; T50.1X6A Underdosing of loop [high-ceiling] diuretics, initial encounter; Z91.128 Patient's intentional underdosing of medication regimen for other reason; Z91.14 Patient's other noncompliance with medication regimen; J44.9 Chronic obstructive pulmonary disease, unspecified; Z99.81 Dependence on supplemental oxygen; B37.9 Candidiasis, unspecified; R60.0 Localized edema; R06.02 Shortness of breath; E11.9 Type 2 diabetes mellitus without complications; I25.10 Atherosclerotic heart disease of native coronary artery without angina pectoris; Z88.0 Allergy status to penicillin; Z88.1 Allergy status to other antibiotic agents; Z87.891 Personal history of nicotine dependence; Z85.118 Personal history of other malignant neoplasm of bronchus and lung
CPT/HCPCS: 93005; 99285; 96374; 36415; 85025; 80048; 84484; 83880; 71045; 93010; J1940

== ENCOUNTER 2018-10-02 20:05 | Inpatient (IN) | payer MEDICARE, OTHER ==
--- NOTE | 2018-10-02 20:35 | ER Document Report ---
ED Respiratory Problem - General Stated Complaint: BREATHING DIFFICULTY Time Seen by Provider: 10/02/18 20:32 Primary Care Provider: BAKARI VELARDE MD [Primary Care Provider] - Follow up as needed Mode of Arrival: Stretcher Information source: Patient, Relative, Emergency Med Personnel Notes: HISTORY OF PRESENT ILLNESS: Patient is a 73-year-old female with a past medical history of chronic health conditions including CHF, COPD, and recurrent pneumonia who presents with difficulty breathing for the past several hours noticed by family. Location: Chest Onset: Gradual Alleviation: None Provocation: None Quality: "Tightness" Radiation: None Severity: Moderate Timing: Constant History of CAD: Yes Associated symptoms: No fevers or chills, no chest pain, no increase in swelling of the extremities REVIEW OF SYSTEMS: CONSTITUTIONAL : Denies fever or chills, no sweats. Denies recent illness. EENT: Denies eye, ear, throat, or mouth pain or symptoms. Denies nasal or sinus congestion. CARDIOVASCULAR: Positive for chest tightness. Denies swelling of the legs. RESPIRATORY: Positive for cough and congestion. Positive for shortness of breath, difficulty breathing, and wheezing. GASTROINTESTINAL: Denies abdominal pain. Denies nausea, vomiting, or diarrhea. Denies constipation. GENITOURINARY: Denies difficulty urinating, painful urination, burning, frequency, or blood in urine. MUSCULOSKELETAL: Denies neck or back pain or joint pain or swelling. SKIN: Denies rash or skin lesions. HEMATOLOGIC : Denies easy bruising or bleeding. LYMPHATIC: Denies swollen, enlarged glands. NEUROLOGICAL: Denies altered mental status or loss of consciousness. Denies headache. Denies weakness or paralysis or loss of use of either side. Denies problems with gait or speech. Denies sensory or motor loss. PSYCHIATRIC: Denies anxiety or stress or depression. All other systems reviewed and negative. PHYSICAL EXAMINATION: GENERAL: Weak-appearing, well-nourished and in no acute distress. HEAD: Atraumatic, normocephalic. No scalp deformity, depression, or crepitance. EYES: Pupils are 3 mm and equal/round/reactive to light, extraocular movements intact, sclera anicteric, conjunctiva are normal. ENT: Nares patent bilaterally, oropharynx. Moist mucous membranes. No tonsil hypertrophy. NECK: Normal range of motion, supple without lymphadenopathy. LUNGS: Breath sounds mildly diminished bilaterally with moderate scattered expiratory wheezes. No rales rhonchi. HEART: Regular rate and rhythm without murmurs, rubs, or gallops. 2+ peripheral pulses. Normal capillary refill. ABDOMEN: Soft, nontender, nondistended. Normoactive bowel sounds. No guarding, no rebound. No masses appreciated. BACK: Normal contour, no midline tenderness. Rectal exam deferred. GENITAL/PELVIC: Deferred. EXTREMITIES: Normal range of motion, trace edema. No cyanosis. NEUROLOGICAL: No focal neurological deficits. Moves all extremities spontaneously and on command. PSYCH: Normal mood, normal affect. No suicidal thoughts/ideations. No homocidal thoughts/ideations. No hallucinations. SKIN: Warm, dry, normal turgor, no rashes or lesions noted. ASSESSMENT AND PLAN: This patient is a 73-year-old female who presents with difficulty breathing and shortness of breath that could result from COPD exacerbation versus pneumonia versus acute WI versus heart failure. 1. Will obtain labs, cardiac enzymes, chest x-ray, give IV Solu-Medrol with nebulizer treatments, and reassess. 2. Will empirically treat for COPD exacerbation/pneumonia and anticipate admission to the hospital. TRAVEL OUTSIDE OF THE [place] IN LAST 30 DAYS: No - Related Data Allergies/Adverse Reactions: azithromycin Allergy (Verified 10/02/18 20:37) cephalexin Allergy (Verified 10/02/18 20:37) Penicillins Allergy (Verified 10/02/18 20:37) amoxicillin [Amoxicillin] Adverse Reaction (Verified 10/02/18 20:37) visual hallucinations erythromycin base [Erythromycin Base] Adverse Reaction (Verified 10/02/18 20:37) visual hallucinations Potassium Clavulanate * [From Augmentin] Adverse Reaction (Verified 10/02/18 20:37) visual hallucinations Past Medical History - General Information source: Patient, Relative, Emergency Med Personnel - Social History Smoking Status: Former Smoker Chew tobacco use (# tins/day): No Frequency of alcohol use: None Drug Abuse: None Lives with: Family Family History: Reviewed & Not Pertinent, COPD, Malignancy - Lung cancer - Past Medical History Cardiac Medical History: Reports: Hx Atrial Fibrillation, Hx Congestive Heart Failure, Hx Coronary Artery Disease, Hx Heart Attack, Hx Hypertension Denies: Hx DVT, Hx Hypercholesterolemia, Hx Pulmonary Embolism Pulmonary Medical History: Reports: Hx Asthma, Hx Bronchitis, Hx COPD, Hx Pneumonia, Hx Respiratory Failure - Chronic respiratory failure Denies: Hx Sleep Apnea, Hx Tuberculosis EENT Medical History: Reports: None Neurological Medical History: Reports: None. Denies: Hx Seizures Endocrine Medical History: Reports: Hx Diabetes Mellitus Type 2, Hx Hypothyroidism. Denies: Hx Diabetes Mellitus Type 1, Hx Hyperthyroidism Renal/ Medical History: Reports: None. Denies: Hx End Stage Renal Disease, Hx Kidney Stones, Hx Peritoneal Dialysis Malignancy Medical History: Reports: Hx Brain Cancer - Lung cancer with brain metastases, 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 GI Medical History: Reports: Hx Gastroesophageal Reflux Disease. Denies: Hx Cirrhosis, Hx Hepatitis, Hx Ulcer Musculoskeletal Medical History: Reports Hx Arthritis, Reports Hx Gout, Denies Hx Multiple Sclerosis, Reports Hx Musculoskeletal Deformity, Reports Hx Musculoskeletal Trauma Skin Medical History: Reports None, Denies Hx Eczema, Denies Hx Psoriasis Psychiatric Medical History: Reports: Hx Dementia, Hx Depression Denies: Hx Bipolar Disorder, Hx Schizophrenia Traumatic Medical History: Reports: None Infectious Medical History: Reports: Hx C-Diff. Denies: Hx Hepatitis Past Surgical History: Reports: Hx Cholecystectomy, Hx Orthopedic Surgery - Foot surgery, Other - cataract bilateral - Immunizations Immunizations up to date: Yes Hx Diphtheria, Pertussis, Tetanus Vaccination: Yes History of Influenza Vaccine for 04/2017 - 09/2017 Season: Yes Hx Pneumococcal Vaccination: 08/30/12 Physical Exam - Vital signs Vitals: Temp Pulse Resp BP Pulse Ox 97.7 F 129 H 24 H 102/60 98 10/02/18 20:05 10/02/18 20:05 10/02/18 20:05 10/02/18 20:05 10/02/18 20:05 Course - Re-evaluation Re-evalutation: 10/03/18 02:49 Preliminary blood work shows normal white blood cell count, chronic anemia, negative cardiac enzymes. Chest x-ray shows a possible right sided pneumonia, however patient is persistently tachycardic despite no nebulizer treatments in the last 2-3 hours. Given history, patient is admitted to the hospital, will obtain CT angiogram of the chest. - Vital Signs Vital signs: Temp Pulse Resp BP Pulse Ox 97.8 F 128 H 21 H 110/62 96 10/02/18 23:08 10/02/18 20:41 10/03/18 01:00 10/02/18 22:55 10/03/18 01:00 - Laboratory Result Diagrams: 10/02/18 23:14 10/02/18 23:14 Laboratory results interpreted by me: 10/02/18 10/02/18 10/02/18 23:14 23:14 23:14 RBC 2.59 L Hgb 8.5 L Hct 25.0 L RDW 15.8 H Seg Neutrophils % 85.5 H Lymphocytes % 8.2 L Absolute Lymphocytes 0.4 L Carbonic Acid ABG pCO2 ABG HCO3 ABG Total CO2 Carbon Dioxide 36 H Glucose 129 H NT-Pro-B Natriuret Pep 836 H Total Protein 5.5 L Albumin 3.2 L 10/03/18 01:24 RBC Hgb Hct RDW Seg Neutrophils % Lymphocytes % Absolute Lymphocytes Carbonic Acid 1.72 H ABG pCO2 57.0 H ABG HCO3 35.5 H ABG Total CO2 37.2 H Carbon Dioxide Glucose NT-Pro-B Natriuret Pep Total Protein Albumin - Diagnostic Test Radiology reviewed: Image reviewed, Reports reviewed - EKG Interpretation by Me EKG shows normal: Sinus rhythm Rate: Tachycardia Rhythm: NSR [place]/QRS: No: Right axis deviation, Left axis deviation, RBBB, LBBB, IVCD, LAHB/LAFB, LPHB/LPFB, Bifasicular block Voltage: No: Increased voltage, Consistant with LVH, Decreased voltage, Throughout, Limb leads P Waves: No: DILLON, LAE, Absent, AV Dissociation, Other Heart block present: No: 1st Degree, Mobitz 1, Mobitz 2, CHB (3rd degree block) When compared to previous EKG there are: No significant change - Consults Dr. Johnston Time consulted: 02:49 - will admit Consulted provider: will come to ER Discharge - Discharge Clinical Impression: COPD exacerbation Acute and chronic respiratory failure Qualifiers: Respiratory failure complication: hypercapnia Qualified Code(s): J96.22 - Acute and chronic respiratory failure with hypercapnia Pneumonia Qualifiers: Pneumonia type: due to unspecified organism Laterality: right Lung location: unspecified part of lung Qualified Code(s): J18.9 - Pneumonia, unspecified organism Condition: Stable Disposition: ADMITTED INPATIENT Admitting Provider: Hospitalist Unit Admitted: Telemetry Referrals: BAKARI VELARDE MD [Primary Care Provider] - Follow up as needed
[2018-10-02] MEDS ORDERED: METHYLPREDNISOLONE INJ 125 MG/2 ML SDV IV ONE (21:16)
--- NOTE | 2018-10-02 21:53 | RADIOLOGY REPORT (SQ) ---
EXAM DESCRIPTION: XR CHEST 1 VIEW COMPLETED DATE/TME: 10/02/2018 20:47 CLINICAL HISTORY: 73 years, Female, SOB COMPARISON: EXAM DESCRIPTION: CLINICAL HISTORY: SOB COMPARISON: None. FINDINGS: Single view of the chest is submitted. Cardiac silhouette is normal. There is consolidation in the medial right midlung and right lung base. Mild pulmonary edema is present. There is atelectasis at the left lung base. IMPRESSION: Right lung consolidation. Bilateral atelectasis.
[2018-10-02 23:26] LABS: ABSOLUTE EOSINOPHILS # (AUTO) 0.1 10^3/uL (0.0-0.6); ABSOLUTE LYMPHOCYTES (AUTO) 0.4 10^3/uL (0.5-4.7); ABSOLUTE MONOCYTES (AUTO) 0.3 10^3/uL (0.1-1.4); ABSOLUTE NEUT (AUTO) 4.6 10^3/uL (1.7-8.2); BASOPHILS % (AUTO) 0.3 % (0-2); HEMOGLOBIN 8.5 g/dL (12.0-15.5); LYMPHOCYTES % (AUTO) 8.2 % (13-45); MEAN CORPUSCULAR HGB CONC 34.3 g/dL (32.0-36.0); MEAN CORPUSCULAR VOLUME 96 fl (80-97); PLATELET COUNT 266 10^3/uL (150-450); RED BLOOD COUNT 2.59 10^6/uL (3.72-5.28); RED CELL DISTRIBUTION WIDTH 15.8 % (11.5-14.0); SEGMENTED NEUTROPHILS % (AUTO) 85.5 % (42-78); TOTAL CELLS COUNTED % (AUTO) 100 %; WHITE BLOOD COUNT 5.4 10^3/uL (4.0-10.5)
[2018-10-02 23:42] LABS: ALANINE AMINOTRANSFERASE 32 U/L (9-52); ALBUMIN 3.2 g/dL (3.5-5.0); ALKALINE PHOSPHATASE 67 U/L (38-126); ANION GAP 6 (5-19); ASPARTATE AMINO TRANSFERASE 19 U/L (14-36); BILIRUBIN,DIRECT 0.2 mg/dL (0.0-0.4); BILIRUBIN,TOTAL 0.2 mg/dL (0.2-1.3); BLOOD UREA NITROGEN 15 mg/dL (7-20); CALCIUM 9.2 mg/dL (8.4-10.2); CARBON DIOXIDE 36 mmol/L (22-30); CHLORIDE 100 mmol/L (98-107); GLUCOSE 129 mg/dL (75-110); POTASSIUM 3.7 mmol/L (3.6-5.0); SODIUM 141.6 mmol/L (137-145); TOTAL PROTEIN 5.5 g/dL (6.3-8.2)
[2018-10-02 23:54] LABS: TROPONIN I 0.016 ng/mL
[2018-10-02] MEDS ORDERED: LORAZEPAM INJ 2 MG/1 ML VIAL IV ONE (23:55)
[2018-10-03] MEDS ORDERED: DOXYCYCLINE HYCLATE INJ 100 MG VIAL IV ONE (01:06)
[2018-10-03] MEDS ORDERED: LEVOFLOXACIN 750 MG/D5W RTU 750 MG/150 ML RTUPB IV ONE (01:24)
--- NOTE | 2018-10-03 01:31 | EKG REPORT ---
SEVERITY:- ABNORMAL ECG - SINUS TACHYCARDIA RBBB AND LAFB : Confirmed by: Susan Mishra MD 03-Oct-2018 01:31:07
[2018-10-03 01:36] LABS: ARTERIAL BLOOD BASE EXCESS 9.6 mmol/L; ARTERIAL BLOOD H2CO3 1.72 mmol/L (1.05-1.35); ARTERIAL BLOOD HCO3 35.5 mmol/L (20-24); ARTERIAL BLOOD O2 SATURATION 97.2 % (94-98); ARTERIAL BLOOD PH 7.41 (7.35-7.45); ARTERIAL BLOOD TOTAL CO2 37.2 mmol/L (21-25)
[2018-10-03 01:37] LABS: ARTERIAL BLOOD FIO2 30%
[2018-10-03] MEDS ORDERED: ONDANSETRON 4 MG TAB.RAPDIS PO PRN (02:43)
[2018-10-03] MEDS ORDERED: MAG HYDROX/AL HYDROX/SIMETH SUSP 30 ML UDCUP PO PRN (02:43)
[2018-10-03] MEDS ORDERED: ONDANSETRON HCL INJ/PF 4 MG/2 ML SDV IV PRN (02:43)
[2018-10-03] MEDS ORDERED: MAGNESIUM HYDROXIDE SUSP 30 ML UDCUP PO PRN (02:43)
[2018-10-03] MEDS ORDERED: ALBUTEROL SULFATE 0.083% NEB 2.5 MG/3 ML AMPUL NEB PRN ×2 (02:50→11:54)
[2018-10-03] MEDS ORDERED: GLUCAGON,HUMAN RECOMB 1 MG INJ IM PRN (02:53)
[2018-10-03] MEDS ORDERED: DEXTROSE 50%-WATER 25 GM/50 ML DISP.SYRIN IV PRN ×2 (02:53)
[2018-10-03] MEDS ORDERED: DEXTROSE 40% GEL 15 GM TUBE PO PRN ×2 (02:53)
[2018-10-03 03:39] LABS: ABSOLUTE LYMPHOCYTES (AUTO) 0.3 10^3/uL (0.5-4.7); ABSOLUTE MONOCYTES (AUTO) 0.1 10^3/uL (0.1-1.4); ABSOLUTE NEUT (AUTO) 4.4 10^3/uL (1.7-8.2); BASOPHILS % (AUTO) 0.1 % (0-2); EOSINOPHILS % (AUTO) 0.1 % (0-6); HEMATOCRIT 26.4 % (36.0-47.0); HEMOGLOBIN 8.9 g/dL (12.0-15.5); LYMPHOCYTES % (AUTO) 6.1 % (13-45); MEAN CORPUSCULAR HEMOGLOBIN 32.4 pg (27.0-33.4); MEAN CORPUSCULAR HGB CONC 33.7 g/dL (32.0-36.0); MEAN CORPUSCULAR VOLUME 96 fl (80-97); MONOCYTES % (AUTO) 1.6 % (3-13); PLATELET COUNT 256 10^3/uL (150-450); RED BLOOD COUNT 2.74 10^6/uL (3.72-5.28); RED CELL DISTRIBUTION WIDTH 15.6 % (11.5-14.0); SEGMENTED NEUTROPHILS % (AUTO) 92.1 % (42-78); TOTAL CELLS COUNTED % (AUTO) 100 %; WHITE BLOOD COUNT 4.8 10^3/uL (4.0-10.5)
[2018-10-03 04:13] LABS: CREATINE KINASE MB 0.27 ng/mL (<4.55)
[2018-10-03 04:17] LABS: TROPONIN I < 0.012 ng/mL
--- NOTE | 2018-10-03 05:50 | PDOC H&P ---
History of Present Illness Admission Date/PCP: 10/03/18 02:58 BAKARI VELARDE MD Patient complains of: Increased work of breathing History of Present Illness: TRENTON MCCOY is a 73 year old female who presented to the emergency room at her family's insistence with a several hour history of slightly increased work of breathing. She admits that though she is not feeling dyspneic she has been feeling like it is a little bit harder for her to get her breath than usual. She further admits that this symptom is one that she has had on numerous prior occasions as she developed acute exacerbations of her COPD. She denies other associated symptoms. She has not identified any aggravating or ameliorating factors for her increased work of breathing. In the emergency room she was found to have acute on chronic respiratory failure with hypoxia and hypercapnia without other significant abnormalities in her evaluation. She was subsequently admitted to the hospital for further evaluation and treatment of her early acute exacerbation of COPD. Past Medical History Cardiac Medical History: Reports: Atrial Fibrillation, Congestive Heart Failure, Coronary Artery Disease, Myocardial Infarction, Hypertension Denies: DVT, Hyperlipidema, Pulmonary Embolism Pulmonary Medical History: Reports: Asthma, Bronchitis, Chronic Obstructive Pulmonary Disease (COPD), Pneumonia, Respiratory Failure - Chronic respiratory failure Denies: Sleep Apnea, Tuberculosis EENT Medical History: Reports: None Neurological Medical History: Denies: Seizures Endocrine Medical History: Reports: Diabetes Mellitus Type 2, Hypothyroidism Denies: Diabetes Mellitus Type 1, Hyperthyroidism Renal/ Medical History: Denies: Chronic Kidney Disease, Nephrolithiasis Malignancy Medical History: Reports: Brain Cancer - Lung cancer with brain metastases, 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 GI Medical History: Reports: Gastroesophageal Reflux Disease Denies: Cirrhosis, Hepatitis Musculoskeltal Medical History: Reports: Arthritis, Gout Skin Medical History: Denies: Eczema, Psoriasis Psychiatric Medical History: Reports: Dementia, Depression Denies: Bipolar Disorder Traumatic Medical History: Reports: None Hematology: Reports: Anemia, Bleeding Tendencies Infectious Medical History: Reports: Clostridium Difficile Past Surgical History Past Surgical History: Reports: Cholecystectomy, Orthopedic Surgery - Foot surgery, Other - cataract bilateral Social History Information Source: Patient, Friend Lives with: Family Smoking Status: Former Smoker Frequency of Alcohol Use: None Hx Recreational Drug Use: No Drugs: None Hx Prescription Drug Abuse: No - Advance Directive Resuscitation Status: Full Code Surrogate healthcare decision maker:: Chika Kinney Family History Family History: COPD, Malignancy - Lung cancer Parental Family History Reviewed: Yes Children Family History Reviewed: No Sibling(s) Family History Reviewed.: Yes Medication/Allergy Home Medications: Acetaminophen [Tylenol 325 mg Tablet] 325 mg PO Q4HP PRN 08/27/18 Albuterol Sulfate [Ventolin 0.083% Neb 2.5 mg/3 mL Ampul] 2.5 mg NEB Q4HP PRN 30 Days #60 vial.neb 08/27/18 Budesonide [Pulmicort Neb 0.5 mg/2 ml Ampul] 0.5 mg NEB BID 30 Days #60 ampul.neb 08/27/18 Fluticasone Propionate [Flonase Nasal [place] 50 Mcg/[place] 16 gm] 2 spray NASL Q12 30 Days #1 spray.pump 08/27/18 Guaifenesin [Mucinex Sr 600 mg Tablet.sa] 600 mg PO Q12 30 Days #60 tablet.sa 08/27/18 Ipratropium [place] [Atrovent 0.02% Neb 0.5 mg/2.5 ml Ampul] 0.5 mg NEB Q8H 30 Days #90 vial.neb 08/27/18 Levalbuterol HCl [Xopenex Neb 1.25 mg/3 ml Ampul] 1.25 mg NEB Q8H 30 Days #90 vial.neb 08/27/18 Levofloxacin [Levaquin 500 mg Tablet] 500 mg PO QHS 5 Days #5 tablet 08/27/18 Levothyroxine Sodium [Levo-T] 150 mcg PO DAILY 30 Days #30 tablet 08/27/18 Metformin HCl [Glucophage 500 mg Tablet] 500 mg PO BID 30 Days #60 tablet 08/27/18 Metoprolol Succinate [Toprol Xl] 25 mg PO DAILY 30 Days #30 tab.er.24h 08/27/18 Prednisone [Deltasone] 20 mg PO DAILY 3 Days #3 tablet 08/27/18 Cephalexin Monohydrate [Keflex 500 mg Capsule] 500 mg PO Q6H 7 Days capsule 09/17/18 Furosemide [Lasix 20 mg Tablet] 20 mg PO QAM #30 tablet 09/29/18 Nystatin 1 each MC BID 14 Days #1 powder.ea. 09/29/18 Allergies/Adverse Reactions: azithromycin Allergy (Verified 10/02/18 20:37) cephalexin Allergy (Verified 10/02/18 20:37) Penicillins Allergy (Verified 10/02/18 20:37) amoxicillin [Amoxicillin] Adverse Reaction (Verified 10/02/18 20:37) visual hallucinations erythromycin base [Erythromycin Base] Adverse Reaction (Verified 10/02/18 20:37) visual hallucinations Potassium Clavulanate * [From Augmentin] Adverse Reaction (Verified 10/02/18 20:37) visual hallucinations Review of Systems Constitutional: ABSENT: chills, fever(s) Eyes: ABSENT: visual disturbances, other - Eye pain Ears: ABSENT: hearing changes, other - Ear pain Nose, Mouth, and Throat: ABSENT: mouth pain, sore throat Cardiovascular: ABSENT: chest pain, palpitations Respiratory: PRESENT: as per HPI, other - Increased work of breathing. ABSENT: cough, dyspnea Gastrointestinal: ABSENT: abdominal pain, constipation, diarrhea, nausea, vomiting Genitourinary: ABSENT: dysuria, hematuria Musculoskeletal: ABSENT: deformity, joint swelling Integumentary: ABSENT: pruritus, rash Neurological: ABSENT: confusion, convulsions, focal weakness, memory loss Psychiatric: ABSENT: anxiety, depression Endocrine: ABSENT: cold intolerance, heat intolerance Hematologic/Lymphatic: ABSENT: easy bleeding, easy bruising Physical Exam Vital Signs: Temp Pulse Resp BP Pulse Ox 97.8 F 128 H 24 H 100/74 98 10/03/18 04:43 10/02/18 20:41 10/03/18 04:00 10/03/18 04:43 10/03/18 04:56 Intake & Output 10/01/18 10/02/18 10/03/18 23:59 23:59 23:59 Weight 78.925 kg General appearance: PRESENT: no acute distress, cooperative Head exam: PRESENT: atraumatic, normocephalic Eye exam: PRESENT: conjunctiva pink. ABSENT: scleral icterus Ear exam: PRESENT: normal external ear exam. ABSENT: bleeding, drainage Mouth exam: PRESENT: dry mucosa, neck supple Neck exam: ABSENT: thyromegaly, tracheal deviation Respiratory exam: PRESENT: decreased breath sounds - Moderately decreased breath sounds throughout all curtis consistent with moderate to severe COPD, prolonged expiratory phas - Minimally prolonged expiratory phase, symmetrical, wheezes - Minimal expiratory wheezes in all curtis. ABSENT: rales, rhonchi Cardiovascular exam: PRESENT: RRR. ABSENT: clicks, gallop, rubs Pulses: PRESENT: normal radial pulses, normal dorsalis pedis pul GI/Abdominal exam: PRESENT: normal bowel sounds, soft Rectal exam: PRESENT: deferred Extremities exam: ABSENT: joint swelling, pedal edema Musculoskeletal exam: ABSENT: deformity, dislocation Neurological exam: PRESENT: alert, oriented to person, oriented to place, oriented to time, oriented to situation, CN II-XII grossly intact. ABSENT: motor sensory deficit Psychiatric exam: PRESENT: appropriate affect, normal mood Skin exam: PRESENT: dry, intact, warm. ABSENT: jaundice, rash, urticaria Results Laboratory Results: 10/03/18 03:20 10/02/18 23:14 10/02/18 10/02/18 10/03/18 23:14 23:14 01:24 WBC 5.4 RBC 2.59 L Hgb 8.5 L Hct 25.0 L MCV 96 MCH 33.0 MCHC 34.3 RDW 15.8 H Plt Count 266 Seg Neutrophils % 85.5 H Lymphocytes % 8.2 L Monocytes % 5.0 Eosinophils % 1.0 Basophils % 0.3 Absolute Neutrophils 4.6 Absolute Lymphocytes 0.4 L Absolute Monocytes 0.3 Absolute Eosinophils 0.1 Absolute Basophils 0.0 Carbonic Acid 1.72 H HCO3/H2CO3 Ratio 20:1 ABG pH 7.41 ABG pCO2 57.0 H ABG pO2 95.0 ABG HCO3 35.5 H ABG O2 Saturation 97.2 ABG Base Excess 9.6 FiO2 30% Sodium 141.6 Potassium 3.7 Chloride 100 Carbon Dioxide 36 H Anion Gap 6 BUN 15 Creatinine 0.87 Est GFR ( Amer) > 60 Est GFR (Non-Af Amer) > 60 Glucose 129 H Lactic Acid Calcium 9.2 Total Bilirubin 0.2 AST 19 ALT 32 Alkaline Phosphatase 67 Total Protein 5.5 L Albumin 3.2 L 10/03/18 10/03/18 01:25 03:20 WBC 4.8 RBC 2.74 L Hgb 8.9 L Hct 26.4 L MCV 96 MCH 32.4 MCHC 33.7 RDW 15.6 H Plt Count 256 Seg Neutrophils % 92.1 H Lymphocytes % 6.1 L Monocytes % 1.6 L Eosinophils % 0.1 Basophils % 0.1 Absolute Neutrophils 4.4 Absolute Lymphocytes 0.3 L Absolute Monocytes 0.1 Absolute Eosinophils 0.0 Absolute Basophils 0.0 Carbonic Acid HCO3/H2CO3 Ratio ABG pH ABG pCO2 ABG pO2 ABG HCO3 ABG O2 Saturation ABG Base Excess FiO2 Sodium Potassium Chloride Carbon Dioxide Anion Gap BUN Creatinine Est GFR ( Amer) Est GFR (Non-Af Amer) Glucose Lactic Acid 2.1 Calcium Total Bilirubin AST ALT Alkaline Phosphatase Total Protein Albumin 10/02/18 10/03/18 10/03/18 23:14 03:20 03:20 Creatine Kinase < 20 L CK-MB (CK-2) 0.27 Troponin I 0.016 < 0.012 NT-Pro-B Natriuret Pep 836 H Impressions: Chest X-Ray 10/02/18 20:47 IMPRESSION: Right lung consolidation. Bilateral atelectasis. Assessment & Plan - Diagnosis (1) Acute on chronic respiratory failure with hypoxia and hypercapnia Is this a current diagnosis for this admission?: Yes Plan: Patient's acute respiratory failure will be treated with supplemental oxygen and close clinical monitoring. Blood gas determinations can be repeated on an as- needed basis. (2) COPD exacerbation Is this a current diagnosis for this admission?: Yes Plan: Patient COPD will be treated with an aggressive pulmonary toilet utilizing Xopenex, Pulmicort, Atrovent and albuterol via nebulizer as well as intravenous Solu-Medrol and oral guaifenesin. (3) Type 2 diabetes mellitus Qualifiers: Diabetes mellitus chcf insulin use: without manager intermediate use Diabetes mellitus complication status: with ophthalmic complications Diabetes mellitus complication detail: with cataract Qualified Code(s): E11.36 - Type 2 diabetes mellitus with diabetic cataract Is this a current diagnosis for this admission?: Yes Plan: Patient be continued on her current diabetic therapy and a diabetic diet. Additionally a sliding scale utilizing regular insulin will be used to cover hyperglycemia on AC and at bedtime blood sugar determinations. (4) Essential hypertension Is this a current diagnosis for this admission?: Yes Plan: Patient will be continued on her usual antihypertensive regiment with modifications made only as required. (5) Hypothyroid Qualifiers: Hypothyroidism type: unspecified Qualified Code(s): E03.9 - Hypothyroidism, unspecified Is this a current diagnosis for this admission?: Yes Plan: Patient will be continued on her usual thyroid supplementation with modifications made as needed. - Time Time Spent: 30 to 50 Minutes Critical Time spent with patient: Less than 15 minutes Medications reviewed and adjusted accordingly: Yes Anticipated discharge: Home - Inpatient Certification Based on my medical assessment, after consideration of the patient's comorbidities, presenting symptoms, or acuity I expect that the services needed warrant INPATIENT care.: Yes I certify that my determination is in accordance with my understanding of Medicare's requirements for reasonable and necessary INPATIENT services [42 CFR 412.3e].: Yes Medical Necessity: Significant Comorbidiites Make Outpatient Treatment Too Risky, Need Close Monitoring Due to Risk of Patient Decompensation, Need for Nebulizer Therapy and Monitoring of Response, Risk of Complication if Not Cared For in Hospital
[2018-10-03] MEDS ORDERED: LEVOTHYROXINE SODIUM 0.15 MG TABLET PO SCH (06:00)
[2018-10-03] MEDS ORDERED: METHYLPREDNISOLONE INJ 40 MG/1 ML SDV IV SCH (06:00)
--- NOTE | 2018-10-03 06:25 | RADIOLOGY REPORT (SQ) ---
EXAM DESCRIPTION: CT CHEST ANGIOGRAPHY WITH IV CONTRAST COMPLETED DATE/TME: 10/03/2018 02:51 CLINICAL HISTORY: Shortness of breath, COMPARISON: 07/07/2018 TECHNIQUE: CTA of the chest obtained following the uncomplicated intravenous administration of 100 mL Omnipaque due to. 3-D/MIP reformatted images of the chest available for evaluation. DLP: 641.12 mGycm FINDINGS: Chest: Pulmonary arteries: Contrast bolus is adequate.No filling defects identified in the pulmonary arteries to suggest pulmonary embolus. Thyroid:No abnormalities of the visualized thyroid. Great Vessels:Great vessels have normal anatomic configuration. Thoracic Aorta: Atherosclerotic vascular calcification of the thoracic aorta. Heart: Trace pericardial effusion. Coronary artery atherosclerosis. The heart is not enlarged. Lymph Nodes:No enlarged mediastinal lymph nodes identified. Esophagus:No abnormalities of the esophagus identified. Other:No additional findings. Lungs: Persistent right perihilar opacity as well as right basilar compressive atelectasis. No confluent acute airspace opacity. Pleura: Moderate right pleural effusion. Trachea/Airways: No acute abnormalities of the trachea identified. Bones: Mild endplate spondylosis. Upper Abdomen: Limited images of the upper abdomen demonstrate no abnormalities of visualized pancreas, spleen, or adrenal glands. Prior cholecystectomy. Persistent left pneumobilia. The liver is otherwise unremarkable. No abnormalities of visualized left kidney. Right renal cyst. IMPRESSION: 1. No pulmonary embolus identified. 2. Moderate right pleural effusion with compressive atelectasis of the right lower lobe. 3. The right hilar region is stable in appearance with persistent soft tissue density. This exam was performed according to our departmental dose-optimization program, which includes automated exposure control, adjustment of the mA and/or kV according to patient size and/or use of iterative reconstruction technique.
[2018-10-03] MEDS: LEVALBUTEROL HCL NEB 1.25 MG/3 ML AMPUL NEB SCH ×3 (07:56→23:56)
[2018-10-03] MEDS: IPRATROPIUM BROMIDE 0.02% NEB 0.5 MG/2.5 ML AMPUL NEB SCH ×3 (07:56→23:56)
[2018-10-03] MEDS ORDERED: BUDESONIDE NEB 0.5 MG/2 ML AMPUL NEB SCH (08:00)
[2018-10-03] MEDS: HEPARIN SOD (PORCINE) 5,000 UNIT/ML 1 ML SYRINGE SUBCUT SCH ×3 (08:35→21:10)
[2018-10-03] MEDS ORDERED: METFORMIN HCL 500 MG TABLET PO SCH ×2 (09:00→17:00)
[2018-10-03] MEDS ORDERED: NYSTATIN MC SCH (10:00)
[2018-10-03 10:38] LABS: CREATINE KINASE MB 0.28 ng/mL (<4.55)
[2018-10-03 10:41] LABS: TROPONIN I < 0.012 ng/mL
[2018-10-03] MEDS: DOCUSATE SODIUM 100 MG CAPSULE PO SCH ×2 (11:30→17:45)
[2018-10-03] MEDS: METHYLPREDNISOLONE INJ 40 MG/1 ML SDV IV SCH ×2 (11:30→21:09)
[2018-10-03] MEDS: GUAIFENESIN 600 MG TABLET.SA PO SCH ×2 (11:30→21:10)
[2018-10-03] MEDS: FAMOTIDINE 20 MG TABLET PO SCH ×2 (11:30→21:10)
--- NOTE | 2018-10-03 14:02 | PDOC PROGRESS REPORT ---
Subjective Progress Note for:: 10/03/18 Subjective:: 10/03/[id number]-brfh-old female admitted for COPD exacerbation. No acute events since the patient. Patient is afebrile. Comfortably in the bed. Denies any problems. Reason For Visit: ACUTE EXACERBATION OF COPD Physical Exam Vital Signs: Temp Pulse Resp BP Pulse Ox 98.0 F 126 H 17 114/48 L 100 10/03/18 11:15 10/03/18 11:15 10/03/18 11:15 10/03/18 11:15 10/03/18 11:15 Intake & Output 10/02/18 10/03/18 10/04/18 06:59 06:59 06:59 Weight 78.925 kg 77.6 kg General appearance: PRESENT: no acute distress Head exam: PRESENT: atraumatic Eye exam: PRESENT: PERRLA Teeth exam: PRESENT: poor dentation Neck exam: ABSENT: carotid bruit, JVD, lymphadenopathy, thyromegaly Respiratory exam: PRESENT: decreased breath sounds, wheezes Cardiovascular exam: PRESENT: tachycardia GI/Abdominal exam: PRESENT: normal bowel sounds, soft. ABSENT: distended, guarding, mass, organolmegaly, rebound, tenderness Extremities exam: PRESENT: full ROM. ABSENT: calf tenderness, clubbing, pedal edema Neurological exam: PRESENT: alert, awake, oriented to person, oriented to place, oriented to time, oriented to situation, CN II-XII grossly intact. ABSENT: motor sensory deficit Psychiatric exam: PRESENT: appropriate affect, normal mood. ABSENT: homicidal ideation, suicidal ideation Results Laboratory Results: 10/03/18 03:20 10/02/18 23:14 10/02/18 10/02/18 10/03/18 23:14 23:14 01:24 WBC 5.4 RBC 2.59 L Hgb 8.5 L Hct 25.0 L MCV 96 MCH 33.0 MCHC 34.3 RDW 15.8 H Plt Count 266 Seg Neutrophils % 85.5 H Lymphocytes % 8.2 L Monocytes % 5.0 Eosinophils % 1.0 Basophils % 0.3 Absolute Neutrophils 4.6 Absolute Lymphocytes 0.4 L Absolute Monocytes 0.3 Absolute Eosinophils 0.1 Absolute Basophils 0.0 Carbonic Acid 1.72 H HCO3/H2CO3 Ratio 20:1 ABG pH 7.41 ABG pCO2 57.0 H ABG pO2 95.0 ABG HCO3 35.5 H ABG O2 Saturation 97.2 ABG Base Excess 9.6 FiO2 30% Sodium 141.6 Potassium 3.7 Chloride 100 Carbon Dioxide 36 H Anion Gap 6 BUN 15 Creatinine 0.87 Est GFR ( Amer) > 60 Est GFR (Non-Af Amer) > 60 Glucose 129 H Lactic Acid Calcium 9.2 Total Bilirubin 0.2 AST 19 ALT 32 Alkaline Phosphatase 67 Total Protein 5.5 L Albumin 3.2 L 10/03/18 10/03/18 10/03/18 01:25 03:20 05:53 WBC 4.8 RBC 2.74 L Hgb 8.9 L Hct 26.4 L MCV 96 MCH 32.4 MCHC 33.7 RDW 15.6 H Plt Count 256 Seg Neutrophils % 92.1 H Lymphocytes % 6.1 L Monocytes % 1.6 L Eosinophils % 0.1 Basophils % 0.1 Absolute Neutrophils 4.4 Absolute Lymphocytes 0.3 L Absolute Monocytes 0.1 Absolute Eosinophils 0.0 Absolute Basophils 0.0 Carbonic Acid HCO3/H2CO3 Ratio ABG pH ABG pCO2 ABG pO2 ABG HCO3 ABG O2 Saturation ABG Base Excess FiO2 Sodium Potassium Chloride Carbon Dioxide Anion Gap BUN Creatinine Est GFR ( Amer) Est GFR (Non-Af Amer) Glucose Lactic Acid 2.1 1.9 Calcium Total Bilirubin AST ALT Alkaline Phosphatase Total Protein Albumin 10/02/18 10/03/18 10/03/18 23:14 03:20 03:20 Creatine Kinase < 20 L CK-MB (CK-2) 0.27 Troponin I 0.016 < 0.012 NT-Pro-B Natriuret Pep 836 H 10/03/18 10/03/18 09:15 09:15 Creatine Kinase < 20 L CK-MB (CK-2) 0.28 Troponin I < 0.012 NT-Pro-B Natriuret Pep Impressions: Chest X-Ray 10/02/18 20:47 IMPRESSION: Right lung consolidation. Bilateral atelectasis. Chest/Abdomen CTA 10/03/18 02:51 IMPRESSION: 1. No pulmonary embolus identified. 2. Moderate right pleural effusion with compressive atelectasis of the right lower lobe. 3. The right hilar region is stable in appearance with persistent soft tissue density. This exam was performed according to our departmental dose-optimization program, which includes automated exposure control, adjustment of the mA and/or kV according to patient size and/or use of iterative reconstruction technique. Assessment & Plan - Diagnosis (1) Acute and chronic respiratory failure Qualifiers: Respiratory failure complication: hypercapnia Qualified Code(s): J96.22 - Acute and chronic respiratory failure with hypercapnia Is this a current diagnosis for this admission?: Yes Plan: Patient's acute respiratory failure will be treated with supplemental oxygen and close clinical monitoring. Blood gas determinations can be repeated on an as- needed basis. 10/03/2018-patient is admitted with acute on chronic respiratory failure most likely secondary to COPD exacerbation. Presently on Xopenex, Pulmicort, Atroven t and albuterol nebulizations. Patient is also receiving IV Solu-Medrol. Pulse ox is 100% on 2 L. (2) COPD exacerbation Is this a current diagnosis for this admission?: Yes Plan: Patient COPD will be treated with an aggressive pulmonary toilet utilizing Xopenex, Pulmicort, Atrovent and albuterol via nebulizer as well as intravenous Solu-Medrol and oral guaifenesin. 10/03/2018 patient is admitted with COPD exacerbation plan is to continue scheduled and as needed nebulizations along with IV Solu-Medrol. (3) Type 2 diabetes mellitus Is this a current diagnosis for this admission?: No Plan: Patient be continued on her current diabetic therapy and a diabetic diet. Additionally a sliding scale utilizing regular insulin will be used to cover hyperglycemia on AC and at bedtime blood sugar determinations. 10/03/2018-patient has history of type 2 diabetes mellitus patient is on insulin sliding scale she is also on metformin at home which was on hold. Latest blood sugars are 129 is stable. plan is to continue the present management. Dietary consult was requested. To check hemoglobin A1c tomorrow morning. (4) Essential hypertension Is this a current diagnosis for this admission?: No Plan: 10/03/2018 patient blood pressure today is 143/72. Stable. Plan is to resume her home medications today. Patient is on lisinopril 5 mg p.o. daily, metoprolol 25 mg p.o. daily at home in addition to that patient is receiving Lasix 20 mg p.o. a.m. - Time Time Spent with patient: 15-24 minutes Medications reviewed and adjusted accordingly: Yes Anticipated discharge: Home
[2018-10-03] MEDS: ACETAMINOPHEN 325 MG TABLET PO PRN ×2 (14:05→21:09)
[2018-10-03] MEDS ORDERED: IPRATROPIUM BROMIDE 0.02% NEB 0.5 MG/2.5 ML AMPUL NEB SCH (16:00)
[2018-10-03 17:13] LABS: CREATINE KINASE MB 0.3 ng/mL (<4.55); TROPONIN I 0.015 ng/mL
[2018-10-03] MEDS: NYSTATIN TOPICAL POWDER 15 GM TP SCH (17:44)
[2018-10-03] MEDS: LEVOFLOXACIN 750 MG TABLET PO SCH (17:45)
[2018-10-03] MEDS: INSULIN REG, HUMAN 100 UNIT/ML 3 ML VIAL (PYX) SUBCUT PRN ×2 (17:53→21:19)
[2018-10-03] MEDS ORDERED: (PENDING PHARMACY ID) (Nystatin [Nystatin] 1 APPLIC) TOP SCH (18:00)
[2018-10-03] MEDS: BUDESONIDE NEB 0.5 MG/2 ML AMPUL NEB SCH (19:26)
[2018-10-03] MEDS ORDERED: LORAZEPAM INJ 2 MG/1 ML VIAL IV ONE (23:00)
[2018-10-04] MEDS: LEVOTHYROXINE SODIUM 0.088 MG TABLET PO SCH (05:51)
[2018-10-04] MEDS: HEPARIN SOD (PORCINE) 5,000 UNIT/ML 1 ML SYRINGE SUBCUT SCH ×3 (05:51→23:33)
[2018-10-04 07:38] LABS: ABSOLUTE LYMPHOCYTES (AUTO) 0.4 10^3/uL (0.5-4.7); ABSOLUTE MONOCYTES (AUTO) 0.5 10^3/uL (0.1-1.4); ABSOLUTE NEUT (AUTO) 7.6 10^3/uL (1.7-8.2); BASOPHILS % (AUTO) 0.1 % (0-2); LYMPHOCYTES % (AUTO) 5.2 % (13-45); MEAN CORPUSCULAR HEMOGLOBIN 32.6 pg (27.0-33.4); MEAN CORPUSCULAR VOLUME 96 fl (80-97); MONOCYTES % (AUTO) 6.1 % (3-13); PLATELET COUNT 250 10^3/uL (150-450); RED CELL DISTRIBUTION WIDTH 15.5 % (11.5-14.0); SEGMENTED NEUTROPHILS % (AUTO) 88.6 % (42-78); TOTAL CELLS COUNTED % (AUTO) 100 %; WHITE BLOOD COUNT 8.5 10^3/uL (4.0-10.5)
[2018-10-04 07:44] LABS: HEMOGLOBIN 7.8 g/dL (12.0-15.5)
[2018-10-04 08:03] LABS: ALANINE AMINOTRANSFERASE 11 U/L (9-52); ALBUMIN 3.2 g/dL (3.5-5.0); ALKALINE PHOSPHATASE 58 U/L (38-126); ANION GAP 9 (5-19); ASPARTATE AMINO TRANSFERASE 16 U/L (14-36); BILIRUBIN,DIRECT 0.2 mg/dL (0.0-0.4); BILIRUBIN,TOTAL 0.2 mg/dL (0.2-1.3); BLOOD UREA NITROGEN 20 mg/dL (7-20); CALCIUM 9.1 mg/dL (8.4-10.2); CARBON DIOXIDE 33 mmol/L (22-30); CHLORIDE 99 mmol/L (98-107); GLUCOSE 119 mg/dL (75-110); POTASSIUM 4.2 mmol/L (3.6-5.0); TOTAL PROTEIN 5.3 g/dL (6.3-8.2)
[2018-10-04] MEDS: IPRATROPIUM BROMIDE 0.02% NEB 0.5 MG/2.5 ML AMPUL NEB SCH ×2 (08:04→15:58)
[2018-10-04] MEDS: LEVALBUTEROL HCL NEB 1.25 MG/3 ML AMPUL NEB SCH ×2 (08:04→15:58)
[2018-10-04] MEDS: BUDESONIDE NEB 0.5 MG/2 ML AMPUL NEB SCH ×2 (08:04→19:29)
[2018-10-04] MEDS ORDERED: ONDANSETRON 4 MG TAB.RAPDIS PO PRN (08:08)
[2018-10-04] MEDS ORDERED: NORMAL SALINE 250 ML IV PRN ×2 (08:29)
[2018-10-04] MEDS ORDERED: ONDANSETRON HCL INJ/PF 4 MG/2 ML SDV IV PRN (08:30)
[2018-10-04] MEDS: FUROSEMIDE 20 MG TABLET PO SCH (08:46)
[2018-10-04] MEDS: GUAIFENESIN 600 MG TABLET.SA PO SCH ×2 (09:22→23:34)
[2018-10-04] MEDS: FAMOTIDINE 20 MG TABLET PO SCH ×2 (09:22→23:34)
[2018-10-04] MEDS: METHYLPREDNISOLONE INJ 40 MG/1 ML SDV IV SCH ×2 (09:22→23:34)
[2018-10-04] MEDS: DOCUSATE SODIUM 100 MG CAPSULE PO SCH ×2 (09:22→17:31)
[2018-10-04] MEDS: NYSTATIN TOPICAL POWDER 15 GM TP SCH ×4 (09:23→17:37)
[2018-10-04] MEDS: FLUTICASONE NASAL SPRAY 50 MCG/SPRY 120 SPRAY/16 GM NASL SCH (09:25)
[2018-10-04] MEDS ORDERED: LISINOPRIL 5 MG TABLET PO SCH (10:00)
[2018-10-04] MEDS ORDERED: METOPROLOL SUCCINATE 25 MG TAB.SR.24H PO SCH ×2 (10:00)
[2018-10-04] MEDS ORDERED: METOPROLOL SUCCINATE 25 MG TAB.SR.24H PO ONE (11:00)
[2018-10-04] MEDS: MAGNESIUM SULFATE/D5W 1 GM/100 ML RTUPB IV SCH ×3 (11:10→14:18)
--- NOTE | 2018-10-04 14:35 | PDOC PROGRESS REPORT ---
Subjective Progress Note for:: 10/04/18 Subjective:: 10/03/[id number]-zhkq-old female admitted for COPD exacerbation. No acute events since the patient. Patient is afebrile. Comfortably in the bed. Denies any problems. 10/04/[id number]-rbzn-old female admitted for COPD exacerbation heart rate this morning is around 130s asymptomatic denies any chest pains. She is on metoprolol 25 mg p.o. daily increase metoprolol to 50 mg twice a day ,tachycardia may be secondary to underlying COPD exacerbation. Patient is confused not agitated. Patient hemoglobin also came back at 7.8 plan is to give 1 unit of PRBC. Reason For Visit: ACUTE EXACERBATION OF COPD Physical Exam Vital Signs: Temp Pulse Resp BP Pulse Ox 98.9 F 117 H 18 147/81 H 100 10/04/18 11:14 10/04/18 11:14 10/04/18 11:14 10/04/18 11:14 10/04/18 11:14 Intake & Output 10/03/18 10/04/18 10/05/18 06:59 06:59 06:59 Intake Total 480 185 Balance 480 185 Weight 78.925 kg 77.6 kg General appearance: PRESENT: no acute distress, obese Head exam: PRESENT: atraumatic Eye exam: PRESENT: PERRLA Mouth exam: PRESENT: moist, tongue midline Neck exam: ABSENT: carotid bruit, JVD, lymphadenopathy, thyromegaly Respiratory exam: PRESENT: clear to auscultation jeff. ABSENT: rales, rhonchi, wheezes Cardiovascular exam: PRESENT: RRR. ABSENT: diastolic murmur, rubs, systolic murmur GI/Abdominal exam: PRESENT: normal bowel sounds, soft. ABSENT: distended, guarding, mass, organolmegaly, rebound, tenderness Neurological exam: PRESENT: alert, awake, CN II-XII grossly intact. ABSENT: oriented to person, oriented to place, oriented to time, oriented to situation, motor sensory deficit Results Laboratory Results: 10/04/18 06:41 10/04/18 06:41 10/04/18 10/04/18 10/04/18 06:05 06:41 06:41 WBC 8.5 RBC 2.40 L Hgb 7.8 L Hct 23.0 L MCV 96 MCH 32.6 MCHC 34.0 RDW 15.5 H Plt Count 250 Seg Neutrophils % 88.6 H Lymphocytes % 5.2 L Monocytes % 6.1 Eosinophils % 0.0 Basophils % 0.1 Absolute Neutrophils 7.6 Absolute Lymphocytes 0.4 L Absolute Monocytes 0.5 Absolute Eosinophils 0.0 Absolute Basophils 0.0 Sodium Cancelled 141.0 Potassium Cancelled 4.2 Chloride Cancelled 99 Carbon Dioxide Cancelled 33 H Anion Gap Cancelled 9 BUN Cancelled 20 Creatinine Cancelled 1.22 Est GFR ( Amer) Cancelled 52 L Est GFR (Non-Af Amer) Cancelled 43 L Glucose Cancelled 119 H Calcium Cancelled 9.1 Magnesium Cancelled 1.4 L Total Bilirubin 0.2 AST 16 ALT 11 Alkaline Phosphatase 58 Total Protein 5.3 L Albumin 3.2 L Blood Type Antibody Screen 10/04/18 09:50 WBC RBC Hgb Hct MCV MCH MCHC RDW Plt Count Seg Neutrophils % Lymphocytes % Monocytes % Eosinophils % Basophils % Absolute Neutrophils Absolute Lymphocytes Absolute Monocytes Absolute Eosinophils Absolute Basophils Sodium Potassium Chloride Carbon Dioxide Anion Gap BUN Creatinine Est GFR ( Amer) Est GFR (Non-Af Amer) Glucose Calcium Magnesium Total Bilirubin AST ALT Alkaline Phosphatase Total Protein Albumin Blood Type O POSITIVE Antibody Screen NEGATIVE 10/02/18 10/03/18 10/03/18 23:14 03:20 03:20 Creatine Kinase < 20 L CK-MB (CK-2) 0.27 Troponin I 0.016 < 0.012 NT-Pro-B Natriuret Pep 836 H 10/03/18 10/03/18 10/03/18 09:15 09:15 16:33 Creatine Kinase < 20 L < 20 L CK-MB (CK-2) 0.28 Troponin I < 0.012 NT-Pro-B Natriuret Pep 10/03/18 16:33 Creatine Kinase CK-MB (CK-2) 0.30 Troponin I 0.015 NT-Pro-B Natriuret Pep Impressions: Chest X-Ray 10/02/18 20:47 IMPRESSION: Right lung consolidation. Bilateral atelectasis. Chest/Abdomen CTA 10/03/18 02:51 IMPRESSION: 1. No pulmonary embolus identified. 2. Moderate right pleural effusion with compressive atelectasis of the right lower lobe. 3. The right hilar region is stable in appearance with persistent soft tissue density. This exam was performed according to our departmental dose-optimization program, which includes automated exposure control, adjustment of the mA and/or kV according to patient size and/or use of iterative reconstruction technique. Assessment & Plan - Diagnosis (1) Acute and chronic respiratory failure Qualifiers: Respiratory failure complication: hypercapnia Qualified Code(s): J96.22 - Acute and chronic respiratory failure with hypercapnia Is this a current diagnosis for this admission?: Yes Plan: Patient's acute respiratory failure will be treated with supplemental oxygen and close clinical monitoring. Blood gas determinations can be repeated on an as- needed basis. 10/03/2018-patient is admitted with acute on chronic respiratory failure most likely secondary to COPD exacerbation. Presently on Xopenex, Pulmicort, Atrovent and albuterol nebulizations. Patient is also receiving IV Solu-Medrol. Pulse ox is 100% on 2 L. 10/04/2018-patient was admitted with acute on chronic respiratory failure most likely secondary to COPD exacerbation. She is on Xopenex, Pulmicort, Atrovent and albuterol nebulizations also receiving IV Solu-Medrol 40 mg every 12 hours. Pulse ox is 100% on 3 L. She is becoming tachycardic so albuterol nebulization is discontinued today. (2) COPD exacerbation Is this a current diagnosis for this admission?: Yes Plan: Patient COPD will be treated with an aggressive pulmonary toilet utilizing Xopenex, Pulmicort, Atrovent and albuterol via nebulizer as well as intravenous Solu-Medrol and oral guaifenesin. 10/03/2018 patient is admitted with COPD exacerbation plan is to continue scheduled and as needed nebulizations along with IV Solu-Medrol. 10/04/2018-patient has history of COPD admitted for COPD exacerbation plan is to continue IV Solu-Medrol, Xopenex, Pulmicort and Atrovent nebulizations. Is also receiving oral guaifenesin for cough. (3) Type 2 diabetes mellitus Is this a current diagnosis for this admission?: No Plan: Patient be continued on her current diabetic therapy and a diabetic diet. Additionally a sliding scale utilizing regular insulin will be used to cover hyperglycemia on AC and at bedtime blood sugar determinations. 10/03/2018-patient has history of type 2 diabetes mellitus patient is on insulin sliding scale she is also on metformin at home which was on hold. Latest blood sugars are 129 is stable. plan is to continue the present management. Dietary consult was requested. To check hemoglobin A1c tomorrow morning. 10/04/2018-patient has history of type 2 diabetes mellitus blood sugar is 131 today patient is on sliding scale insulin before meals and at bedtime she is on metformin at home which was on hold during this hospital stay. Plan is to check for hemoglobin A1c. (4) Essential hypertension Is this a current diagnosis for this admission?: No Plan: 10/03/2018 patient blood pressure today is 143/72. Stable. Plan is to resume her home medications today. Patient is on lisinopril 5 mg p.o. daily, metoprolol 25 mg p.o. daily at home in addition to that patient is receiving Lasix 20 mg p.o. a.m. 10/04/2018-patient blood pressure today is 159/88 slightly elevated. Patient torrie es any complaints of chest pains. Presently on lisinopril 5 mg daily metoprolol 50 mg p.o. twice a day, Lasix 20 mg twice a day I am going to increase the Lasix to 10 mg daily. - Time Time Spent with patient: 15-24 minutes Medications reviewed and adjusted accordingly: Yes Anticipated discharge: SNF
--- NOTE | 2018-10-04 16:00 | RADIOLOGY REPORT (SQ) ---
EXAM DESCRIPTION: PICC INSERTION; FLUORO/CV PLACEMENT; U/S GUIDE FOR VASCULAR ACCESS COMPLETED DATE/TIME: 10/04/2018 3:45 pm; 10/04/2018 3:46 pm REASON FOR STUDY: iv access; IV ACCESS COMPARISON: None. FLUOROSCOPY TIME: 28 seconds 2 images saved to PACS. TECHNIQUE: Fluoroscopic and ultrasound guided PICC placement. LIMITATIONS: None. PROCEDURE: After written consent and assessment were obtained, the patient was brought into the fluo roscopy room and placed supine on the table. Ultrasound evaluation of potential access sites were per formed. After successfully identifying a patent right basilic vein, the right arm was prepped and tea ped in a sterile fashion along with the ultrasound probe. The entry site was anesthetized with 1% lid ocaine. A 21 gauge 7 cm needle was advanced through the skin and into the basilic vein under live ult rasound guidance. An ultrasound image was saved to PACS confirming access site. A .018 guide wire w as then inserted through the needle and into the venous system. The needle was then removed and an 11 blade scalpel was used to make a 1cm skin incision. A 5 fr peel-away sheath was advanced over the w tracy and into the venous system. A measurement was then made using the existing wire and live fluorosc opic guidance. The wire was then removed and trimmed. The PICC was advanced through the peel-away she ath and into the venous system. The peel-away sheath was removed and the catheter was adhered to the patients arm with a stat lock. The catheter was then aspirated and flushed and a sterile bandage was placed over the access site. A fluoroscopic spot image was saved to PACS confirming the catheter tip within the superior vena cava. IMPRESSION: SUCCESSFUL PLACEMENT OF A 5 FR DUAL LUMEN 33 CM PICC IN THE RIGHT BASILIC VEIN. COMMENT: Patient medication list reviewed: Yes- Quality ID# 130:Eligible professional attests to doc umenting in the medical record they obtained, updated, or reviewed the patient's current medications. . Quality ID 145: Final reports for procedures using fluoroscopy that document radiation exposure ricadro diane, or exposure time and number of fluorographic images (if radiation exposure indices are not avail able) Quality ID #[id number]: The patient was prepped and draped using maximum sterile barrier technique including cap, mask, sterile gown, sterile gloves, a large sterile sheet, hand hygiene, and 2% Chlorhexidine fo r cutaneous antisepsis. When ultrasound is used, sterile ultrasound techniques are followed requiring sterile gel and sterile probes. TECHNICAL DOCUMENTATION: JOB ID: [id number] [facility]- All Rights Reserved rev-12/15 Reading location - IP/workstation name: [email or web address]
[2018-10-04] MEDS: LEVOFLOXACIN 750 MG TABLET PO SCH (17:31)
[2018-10-04] MEDS: METOPROLOL SUCCINATE 50 MG TAB.SR.24H PO SCH (23:35)
[2018-10-05] MEDS: IPRATROPIUM BROMIDE 0.02% NEB 0.5 MG/2.5 ML AMPUL NEB SCH ×3 (00:26→15:23)
[2018-10-05] MEDS: LEVALBUTEROL HCL NEB 1.25 MG/3 ML AMPUL NEB SCH ×3 (00:26→15:23)
[2018-10-05] MEDS ORDERED: DIAZEPAM INJ 10 MG/2 ML DISP.SYRIN IV PRN (00:44)
[2018-10-05] MEDS: HEPARIN SOD (PORCINE) 5,000 UNIT/ML 1 ML SYRINGE SUBCUT SCH ×3 (06:39→22:44)
[2018-10-05] MEDS: LEVOTHYROXINE SODIUM 0.088 MG TABLET PO SCH (06:40)
[2018-10-05] MEDS: FUROSEMIDE 20 MG TABLET PO SCH (08:27)
[2018-10-05] MEDS: BUDESONIDE NEB 0.5 MG/2 ML AMPUL NEB SCH ×2 (08:42→19:13)
[2018-10-05] MEDS ORDERED: LISINOPRIL 5 MG TABLET PO SCH (10:00)
[2018-10-05] MEDS: FLUTICASONE NASAL SPRAY 50 MCG/SPRY 120 SPRAY/16 GM NASL SCH (10:43)
[2018-10-05] MEDS: NYSTATIN TOPICAL POWDER 15 GM TP SCH ×4 (10:43→18:38)
[2018-10-05] MEDS: DOCUSATE SODIUM 100 MG CAPSULE PO SCH ×3 (10:44→18:38)
[2018-10-05] MEDS: METOPROLOL SUCCINATE 50 MG TAB.SR.24H PO SCH ×3 (10:44→22:44)
[2018-10-05] MEDS: GUAIFENESIN 600 MG TABLET.SA PO SCH ×3 (10:44→22:44)
[2018-10-05] MEDS: LISINOPRIL 10 MG TABLET PO SCH ×2 (10:44→11:03)
[2018-10-05] MEDS: FAMOTIDINE 20 MG TABLET PO SCH ×3 (10:44→22:44)
--- NOTE | 2018-10-05 11:37 | PDOC PROGRESS REPORT ---
Subjective Progress Note for:: 10/15/18 Subjective:: 10/03/[id number]-vakm-old female admitted for COPD exacerbation. No acute events since the patient. Patient is afebrile. Comfortably in the bed. Denies any problems. 10/04/[id number]-xqmx-old female admitted for COPD exacerbation heart rate this morning is around 130s asymptomatic denies any chest pains. She is on metoprolol 25 mg p.o. daily increase metoprolol to 50 mg twice a day ,tachycardia may be secondary to underlying COPD exacerbation. Patient is confused not agitated. Patient hemoglobin also came back at 7.8 plan is to give 1 unit of PRBC. The 02/2019-patient is comfortably in the bed sleeping. On calling she is waking up and drifting back to sleep. The nurse told me this morning patient is refusing to take her medications. Patient is talking out of her mind. She is confused. Is unsafe for her to go back home even with home health. In my opin ion she may need to go to a long-term care facility. Reason For Visit: ACUTE EXACERBATION OF COPD Physical Exam Vital Signs: Temp Pulse Resp BP Pulse Ox 98.4 F 105 H 16 121/63 100 10/05/18 09:57 10/05/18 09:57 10/05/18 09:57 10/05/18 09:57 10/05/18 09:57 Intake & Output 10/04/18 10/05/18 10/06/18 06:59 06:59 06:59 Intake Total 480 785 Output Total 600 Balance 480 185 Weight 77.6 kg 77.6 kg General appearance: PRESENT: no acute distress, obese Head exam: PRESENT: atraumatic Eye exam: PRESENT: PERRLA Mouth exam: PRESENT: moist, tongue midline Neck exam: ABSENT: carotid bruit, JVD, lymphadenopathy, thyromegaly Respiratory exam: PRESENT: decreased breath sounds Cardiovascular exam: PRESENT: irregular rhythm, tachycardia GI/Abdominal exam: PRESENT: normal bowel sounds, soft. ABSENT: distended, guarding, mass, organolmegaly, rebound, tenderness Extremities exam: PRESENT: full ROM. ABSENT: calf tenderness, clubbing, pedal edema Neurological exam: PRESENT: alert, awake, oriented to person, oriented to place, oriented to time, oriented to situation, CN II-XII grossly intact. ABSENT: motor sensory deficit Psychiatric exam: PRESENT: appropriate affect, normal mood. ABSENT: homicidal ideation, suicidal ideation Results Laboratory Results: 10/04/18 06:41 10/04/18 09:50 Blood Type O POSITIVE Antibody Screen NEGATIVE 10/02/18 10/03/18 10/03/18 23:14 03:20 03:20 Creatine Kinase < 20 L CK-MB (CK-2) 0.27 Troponin I 0.016 < 0.012 NT-Pro-B Natriuret Pep 836 H 10/03/18 10/03/18 10/03/18 09:15 09:15 16:33 Creatine Kinase < 20 L < 20 L CK-MB (CK-2) 0.28 Troponin I < 0.012 NT-Pro-B Natriuret Pep 10/03/18 16:33 Creatine Kinase CK-MB (CK-2) 0.30 Troponin I 0.015 NT-Pro-B Natriuret Pep Impressions: Chest X-Ray 10/02/18 20:47 IMPRESSION: Right lung consolidation. Bilateral atelectasis. Chest/Abdomen CTA 10/03/18 02:51 IMPRESSION: 1. No pulmonary embolus identified. 2. Moderate right pleural effusion with compressive atelectasis of the right lower lobe. 3. The right hilar region is stable in appearance with persistent soft tissue density. This exam was performed according to our departmental dose-optimization program, which includes automated exposure control, adjustment of the mA and/or kV according to patient size and/or use of iterative reconstruction technique. Guidance Fluoroscopy 10/04/18 00:00 IMPRESSION: SUCCESSFUL PLACEMENT OF A 5 FR DUAL LUMEN 33 CM PICC IN THE RIGHT BASILIC VEIN. Interventional Vascular Procedure 10/04/18 00:00 IMPRESSION: SUCCESSFUL PLACEMENT OF A 5 FR DUAL LUMEN 33 CM PICC IN THE RIGHT BASILIC VEIN. PICC Line Insertion 10/04/18 00:00 IMPRESSION: SUCCESSFUL PLACEMENT OF A 5 FR DUAL LUMEN 33 CM PICC IN THE RIGHT BASILIC VEIN. Assessment & Plan - Diagnosis (1) Acute and chronic respiratory failure Qualifiers: Respiratory failure complication: hypercapnia Qualified Code(s): J96.22 - Acute and chronic respiratory failure with hypercapnia Is this a current diagnosis for this admission?: Yes Plan: Patient's acute respiratory failure will be treated with supplemental oxygen and close clinical monitoring. Blood gas determinations can be repeated on an as- needed basis. 10/03/2018-patient is admitted with acute on chronic respiratory failure most likely secondary to COPD exacerbation. Presently on Xopenex, Pulmicort, Atrovent and albuterol nebulizations. Patient is also receiving IV Solu-Medrol. Pulse ox is 100% on 2 L. 10/04/2018-patient was admitted with acute on chronic respiratory failure most likely secondary to COPD exacerbation. She is on Xopenex, Pulmicort, Atrovent and albuterol nebulizations also receiving IV Solu-Medrol 40 mg every 12 hours. Pulse ox is 100% on 3 L. She is becoming tachycardic so albuterol nebulization is discontinued today. 10/05/2018-this elderly female admitted with acute on chronic respiratory failure secondary to COPD exacerbation. She is on Xopenex, Pulmicort, Atrovent nebulizations and also on IV Solu-Medrol 40 mg every 12 hours. Pulse ox today he is 100% on 2 L. Acute on chronic respiratory failure resolving. The main concern is change in mental status may be secondary to advanced dementia. Try to reach the family yesterday ,in the demographic sheet the number is available is Danyelle Lund. (2) COPD exacerbation Is this a current diagnosis for this admission?: Yes Plan: Patient COPD will be treated with an aggressive pulmonary toilet utilizing Xopenex, Pulmicort, Atrovent and albuterol via nebulizer as well as intravenous Solu-Medrol and oral guaifenesin. 10/03/2018 patient is admitted with COPD exacerbation plan is to continue scheduled and as needed nebulizations along with IV Solu-Medrol. 10/04/2018-patient has history of COPD admitted for COPD exacerbation plan is to continue IV Solu-Medrol, Xopenex, Pulmicort and Atrovent nebulizations. Is also receiving oral guaifenesin for cough. 10/05/2018-patient has history of chronic COPD admitted for COPD exacerbation. Pulse ox is 100% on 3 L. Plan is to continue the present management. Presently she is not on IV Solu-Medrol. (3) Type 2 diabetes mellitus Is this a current diagnosis for this admission?: No Plan: Patient be continued on her current diabetic therapy and a diabetic diet. Additionally a sliding scale utilizing regular insulin will be used to cover hyperglycemia on AC and at bedtime blood sugar determinations. 10/03/2018-patient has history of type 2 diabetes mellitus patient is on insulin sliding scale she is also on metformin at home which was on hold. Latest blood sugars are 129 is stable. plan is to continue the present management. Dietary consult was requested. To check hemoglobin A1c tomorrow morning. 10/04/2018-patient has history of type 2 diabetes mellitus blood sugar is 131 today patient is on sliding scale insulin before meals and at bedtime she is on metformin at home which was on hold during this hospital stay. Plan is to check for hemoglobin A1c. 10/05/2018-patient has history of type 2 diabetes mellitus blood sugar is 109. Patient is presently on insulin sliding scale. Hemoglobin A1c is pending. (4) Essential hypertension Is this a current diagnosis for this admission?: No Plan: 10/03/2018 patient blood pressure today is 143/72. Stable. Plan is to resume her home medications today. Patient is on lisinopril 5 mg p.o. daily, metoprolol 25 mg p.o. daily at home in addition to that patient is receiving Lasix 20 mg p.o. a.m. 10/04/2018-patient blood pressure today is 159/88 slightly elevated. Patient denies any complaints of chest pains. Presently on lisinopril 5 mg daily me toprolol 50 mg p.o. twice a day, Lasix 20 mg twice a day I am going to increase the Lasix to 10 mg daily. 10/05/2018-patient blood pressure is 123/86. With pulse rate of 105. Patient is refusing the p.o. medications this morning. Continue to check blood pressures every shift. (5) Altered mental status Qualifiers: Altered mental status type: delirium Qualified Code(s): R41.0 - Disorientation, unspecified Is this a current diagnosis for this admission?: Yes Plan: 10/05/2018-patient has altered mental status since yesterday most likely secondary to advancing dementia. Unable to maintain good communication. Patient is hallucinating. In my opinion is not safe for her to go to home. My recommendation is patient with the need to go to snf or long-term care facility like assisted living. - Time Time Spent with patient: 15-24 minutes Medications reviewed and adjusted accordingly: Yes Anticipated discharge: SNF
[2018-10-05 11:46] LABS: BLOOD UREA NITROGEN 21 mg/dL (7-20); CALCIUM 9.1 mg/dL (8.4-10.2); CHLORIDE 97 mmol/L (98-107); GLUCOSE 93 mg/dL (75-110); POTASSIUM 3.6 mmol/L (3.6-5.0)
[2018-10-05 12:05] LABS: ANION GAP 3 (5-19)
[2018-10-05 12:08] LABS: CARBON DIOXIDE 40 mmol/L (22-30)
[2018-10-05] MEDS: LEVOFLOXACIN 750 MG TABLET PO SCH (18:38)
[2018-10-06] MEDS: LEVALBUTEROL HCL NEB 1.25 MG/3 ML AMPUL NEB SCH ×4 (01:12→23:51)
[2018-10-06] MEDS: IPRATROPIUM BROMIDE 0.02% NEB 0.5 MG/2.5 ML AMPUL NEB SCH ×4 (01:12→23:51)
[2018-10-06 04:57] LABS: ABSOLUTE EOSINOPHILS # (AUTO) 0.1 10^3/uL (0.0-0.6); ABSOLUTE LYMPHOCYTES (AUTO) 0.9 10^3/uL (0.5-4.7); ABSOLUTE MONOCYTES (AUTO) 0.7 10^3/uL (0.1-1.4); ABSOLUTE NEUT (AUTO) 3.6 10^3/uL (1.7-8.2); BASOPHILS % (AUTO) 0.3 % (0-2); EOSINOPHILS % (AUTO) 1.5 % (0-6); HEMATOCRIT 27.7 % (36.0-47.0); HEMOGLOBIN 9.4 g/dL (12.0-15.5); MEAN CORPUSCULAR HEMOGLOBIN 32.1 pg (27.0-33.4); MEAN CORPUSCULAR HGB CONC 33.8 g/dL (32.0-36.0); MEAN CORPUSCULAR VOLUME 95 fl (80-97); MONOCYTES % (AUTO) 12.6 % (3-13); PLATELET COUNT 256 10^3/uL (150-450); RED BLOOD COUNT 2.92 10^6/uL (3.72-5.28); RED CELL DISTRIBUTION WIDTH 16.5 % (11.5-14.0); SEGMENTED NEUTROPHILS % (AUTO) 68.6 % (42-78); TOTAL CELLS COUNTED % (AUTO) 100 %; WHITE BLOOD COUNT 5.2 10^3/uL (4.0-10.5)
[2018-10-06 05:20] LABS: ALANINE AMINOTRANSFERASE 24 U/L (9-52); ALKALINE PHOSPHATASE 51 U/L (38-126); ASPARTATE AMINO TRANSFERASE 21 U/L (14-36); BILIRUBIN,DIRECT 0.3 mg/dL (0.0-0.4); BILIRUBIN,TOTAL 0.3 mg/dL (0.2-1.3); BLOOD UREA NITROGEN 18 mg/dL (7-20); CALCIUM 9.1 mg/dL (8.4-10.2); CHLORIDE 97 mmol/L (98-107); GLUCOSE 81 mg/dL (75-110); POTASSIUM 3.5 mmol/L (3.6-5.0); SODIUM 142.5 mmol/L (137-145)
[2018-10-06] MEDS: HEPARIN SOD (PORCINE) 5,000 UNIT/ML 1 ML SYRINGE SUBCUT SCH ×3 (05:20→21:13)
[2018-10-06] MEDS: LEVOTHYROXINE SODIUM 0.088 MG TABLET PO SCH (05:21)
[2018-10-06 05:26] LABS: ANION GAP 7 (5-19)
[2018-10-06 05:30] LABS: CARBON DIOXIDE 39 mmol/L (22-30)
[2018-10-06 07:05] LABS: ARTERIAL BLOOD BASE EXCESS 16.2 mmol/L; ARTERIAL BLOOD FIO2 35%; ARTERIAL BLOOD H2CO3 2.04 mmol/L (1.05-1.35); ARTERIAL BLOOD HCO3 43.1 mmol/L (20-24); ARTERIAL BLOOD O2 SATURATION 97.9 % (94-98); ARTERIAL BLOOD PCO2 67.7 mmHg (35-45); ARTERIAL BLOOD PH 7.42 (7.35-7.45); ARTERIAL BLOOD PO2 110.6 mmHg (80-100); ARTERIAL BLOOD TOTAL CO2 45.2 mmol/L (21-25)
[2018-10-06] MEDS: BUDESONIDE NEB 0.5 MG/2 ML AMPUL NEB SCH ×2 (08:00→19:55)
[2018-10-06] MEDS: NYSTATIN TOPICAL POWDER 15 GM TP SCH ×4 (09:46→18:00)
[2018-10-06] MEDS: FUROSEMIDE 20 MG TABLET PO SCH (09:52)
[2018-10-06] MEDS: FAMOTIDINE 20 MG TABLET PO SCH ×2 (09:53→21:13)
[2018-10-06] MEDS: LISINOPRIL 10 MG TABLET PO SCH (09:53)
[2018-10-06] MEDS: FLUTICASONE NASAL SPRAY 50 MCG/SPRY 120 SPRAY/16 GM NASL SCH (09:53)
[2018-10-06] MEDS: METOPROLOL SUCCINATE 50 MG TAB.SR.24H PO SCH ×2 (09:53→21:13)
[2018-10-06] MEDS: DOCUSATE SODIUM 100 MG CAPSULE PO SCH ×2 (09:53→17:57)
[2018-10-06] MEDS: GUAIFENESIN 600 MG TABLET.SA PO SCH ×2 (09:53→21:13)
--- NOTE | 2018-10-06 10:55 | PDOC PROGRESS REPORT ---
Subjective Progress Note for:: 10/06/18 Subjective:: 10/03/[id number]-effm-old female admitted for COPD exacerbation. No acute events since the patient. Patient is afebrile. Comfortably in the bed. Denies any problems. 10/04/[id number]-xmlq-old female admitted for COPD exacerbation heart rate this morning is around 130s asymptomatic denies any chest pains. She is on metoprolol 25 mg p.o. daily increase metoprolol to 50 mg twice a day ,tachycardia may be secondary to underlying COPD exacerbation. Patient is confused not agitated. Patient hemoglobin also came back at 7.8 plan is to give 1 unit of PRBC. 10/05/2018-patient is comfortably in the bed sleeping. On calling she is waking up and drifting back to sleep. The nurse told me this morning patient is refusing to take her medications. Patient is talking out of her mind. She is confused. Is unsafe for her to go back home even with home health. In my opinion she may need to go to a long-term care facility. 10/06/2018-patient is in the bed complaining of throat congestion she requesting somebody to comment clear her throat other than that no complaints comfortable in the bed. No acute events in the last 24 hours. Patient is afebrile. She got a PICC line yesterday and she was given 1 unit of PRBC hemoglobin came up to 9.4. Nurses got in touch with the family members about change in mental status and hallucinations the information they gave is that the patient is doing this for a long time they get used to it and prefer to take her home once she is stable. Reason For Visit: ACUTE EXACERBATION OF COPD Physical Exam Vital Signs: Temp Pulse Resp BP Pulse Ox 98.4 F 78 18 128/47 H 100 10/06/18 07:24 10/06/18 08:00 10/06/18 08:00 10/06/18 07:24 10/06/18 08:00 Intake & Output 10/05/18 10/06/18 10/07/18 06:59 06:59 07:59 Intake Total 785 Output Total 600 Balance 185 Weight 77.6 kg 65 kg General appearance: PRESENT: no acute distress Head exam: PRESENT: atraumatic Eye exam: PRESENT: PERRLA Mouth exam: PRESENT: moist, tongue midline Teeth exam: PRESENT: poor dentation Neck exam: ABSENT: carotid bruit, JVD, lymphadenopathy, thyromegaly Respiratory exam: PRESENT: decreased breath sounds Cardiovascular exam: PRESENT: tachycardia GI/Abdominal exam: PRESENT: normal bowel sounds, soft. ABSENT: distended, guarding, mass, organolmegaly, rebound, tenderness Extremities exam: PRESENT: full ROM. ABSENT: calf tenderness, clubbing, pedal edema Neurological exam: PRESENT: alert, awake, oriented to person, oriented to place, oriented to time, oriented to situation, CN II-XII grossly intact. ABSENT: motor sensory deficit Psychiatric exam: PRESENT: appropriate affect, normal mood. ABSENT: homicidal ideation, suicidal ideation Results Laboratory Results: 10/06/18 04:00 10/06/18 04:00 10/05/18 10/06/18 10/06/18 10:45 04:00 04:00 WBC 5.2 RBC 2.92 L Hgb 9.4 L Hct 27.7 L MCV 95 MCH 32.1 MCHC 33.8 RDW 16.5 H Plt Count 256 Seg Neutrophils % 68.6 Lymphocytes % 17.0 Monocytes % 12.6 Eosinophils % 1.5 Basophils % 0.3 Absolute Neutrophils 3.6 Absolute Lymphocytes 0.9 Absolute Monocytes 0.7 Absolute Eosinophils 0.1 Absolute Basophils 0.0 Carbonic Acid HCO3/H2CO3 Ratio ABG pH ABG pCO2 ABG pO2 ABG HCO3 ABG O2 Saturation ABG Base Excess FiO2 Sodium 140.0 142.5 Potassium 3.6 3.5 L Chloride 97 L 97 L Carbon Dioxide 40 H* 39 H Anion Gap 3 L 7 BUN 21 H 18 Creatinine 1.16 1.22 Est GFR ( Amer) 55 L 52 L Est GFR (Non-Af Amer) 46 L 43 L Glucose 93 81 Calcium 9.1 9.1 Magnesium 2.3 2.3 Total Bilirubin 0.3 AST 21 ALT 24 Alkaline Phosphatase 51 Total Protein 5.0 L Albumin 3.0 L 10/06/18 06:54 WBC RBC Hgb Hct MCV MCH MCHC RDW Plt Count Seg Neutrophils % Lymphocytes % Monocytes % Eosinophils % Basophils % Absolute Neutrophils Absolute Lymphocytes Absolute Monocytes Absolute Eosinophils Absolute Basophils Carbonic Acid 2.04 H HCO3/H2CO3 Ratio 21:1 ABG pH 7.42 ABG pCO2 67.7 H ABG pO2 110.6 H ABG HCO3 43.1 H ABG O2 Saturation 97.9 ABG Base Excess 16.2 FiO2 35% Sodium Potassium Chloride Carbon Dioxide Anion Gap BUN Creatinine Est GFR ( Amer) Est GFR (Non-Af Amer) Glucose Calcium Magnesium Total Bilirubin AST ALT Alkaline Phosphatase Total Protein Albumin 10/02/18 10/03/18 10/03/18 23:14 03:20 03:20 Creatine Kinase < 20 L CK-MB (CK-2) 0.27 Troponin I 0.016 < 0.012 NT-Pro-B Natriuret Pep 836 H 10/03/18 10/03/18 10/03/18 09:15 09:15 16:33 Creatine Kinase < 20 L < 20 L CK-MB (CK-2) 0.28 Troponin I < 0.012 NT-Pro-B Natriuret Pep 10/03/18 16:33 Creatine Kinase CK-MB (CK-2) 0.30 Troponin I 0.015 NT-Pro-B Natriuret Pep Impressions: Chest X-Ray 10/02/18 20:47 IMPRESSION: Right lung consolidation. Bilateral atelectasis. Chest/Abdomen CTA 10/03/18 02:51 IMPRESSION: 1. No pulmonary embolus identified. 2. Moderate right pleural effusion with compressive atelectasis of the right lower lobe. 3. The right hilar region is stable in appearance with persistent soft tissue density. This exam was performed according to our departmental dose-optimization program, which includes automated exposure control, adjustment of the mA and/or kV according to patient size and/or use of iterative reconstruction technique. Guidance Fluoroscopy 10/04/18 00:00 IMPRESSION: SUCCESSFUL PLACEMENT OF A 5 FR DUAL LUMEN 33 CM PICC IN THE RIGHT BASILIC VEIN. Interventional Vascular Procedure 10/04/18 00:00 IMPRESSION: SUCCESSFUL PLACEMENT OF A 5 FR DUAL LUMEN 33 CM PICC IN THE RIGHT BASILIC VEIN. PICC Line Insertion 10/04/18 00:00 IMPRESSION: SUCCESSFUL PLACEMENT OF A 5 FR DUAL LUMEN 33 CM PICC IN THE RIGHT BASILIC VEIN. Assessment & Plan - Diagnosis (1) Acute and chronic respiratory failure Qualifiers: Respiratory failure complication: hypercapnia Qualified Code(s): J96.22 - Acute and chronic respiratory failure with hypercapnia Is this a current diagnosis for this admission?: Yes Plan: Patient's acute respiratory failure will be treated with supplemental oxygen and close clinical monitoring. Blood gas determinations can be repeated on an as- needed basis. 10/03/2018-patient is admitted with acute on chronic respiratory failure most likely secondary to COPD exacerbation. Presently on Xopenex, Pulmicort, Atrovent and albuterol nebulizations. Patient is also receiving IV Solu-Medrol. Pulse ox is 100% on 2 L. 10/04/2018-patient was admitted with acute on chronic respiratory failure most likely secondary to COPD exacerbation. She is on Xopenex, Pulmicort, Atrovent and albuterol nebulizations also receiving IV Solu-Medrol 40 mg every 12 hours. Pulse ox is 100% on 3 L. She is becoming tachycardic so albuterol nebulization is discontinued today. 10/05/2018-this elderly female admitted with acute on chronic respiratory failure secondary to COPD exacerbation. She is on Xopenex, Pulmicort, Atrovent nebulizations and also on IV Solu-Medrol 40 mg every 12 hours. Pulse ox today he is 100% on 2 L. Acute on chronic respiratory failure resolving. The main concern is change in mental status may be secondary to advanced dementia. Try to reach the family yesterday ,in the demographic sheet the number is available is Danyelle Lund. 10/06/2018-patient is admitted with acute on chronic respiratory failure secondary to COPD exacerbation presently on Xopenex, Pulmicort, Atrovent nebulizations. Pulse ox is 100% on 2 L. IV Solu-Medrol is discontinued. On examination today chest bilateral entry was decreased no wheezing no crepitations. (2) COPD exacerbation Is this a current diagnosis for this admission?: Yes Plan: Patient COPD will be treated with an aggressive pulmonary toilet utilizing Xopenex, Pulmicort, Atrovent and albuterol via nebulizer as well as intravenous Solu-Medrol and oral guaifenesin. 10/03/2018 patient is admitted with COPD exacerbation plan is to continue scheduled and as needed nebulizations along with IV Solu-Medrol. 10/04/2018-patient has history of COPD admitted for COPD exacerbation plan is to continue IV Solu-Medrol, Xopenex, Pulmicort and Atrovent nebulizations. Is also receiving oral guaifenesin for cough. 10/05/2018-patient has history of chronic COPD admitted for COPD exacerbation. Pulse ox is 100% on 3 L. Plan is to continue the present management. Presently she is not on IV Solu-Medrol. 10/06/2018-patient has history of COPD admitted for COPD exacerbation pulse oxes are at her baseline on 2 L pulse ox is 100% today. Plan is to continue the present management. (3) Type 2 diabetes mellitus Is this a current diagnosis for this admission?: No Plan: Patient be continued on her current diabetic therapy and a diabetic diet. Additionally a sliding scale utilizing regular insulin will be used to cover hyperglycemia on AC and at bedtime blood sugar determinations. 10/03/2018-patient has history of type 2 diabetes mellitus patient is on insulin sliding scale she is also on metformin at home which was on hold. Latest blood sugars are 129 is stable. plan is to continue the present management. Dietary consult was requested. To check hemoglobin A1c tomorrow morning. 10/04/2018-patient has history of type 2 diabetes mellitus blood sugar is 131 today patient is on sliding scale insulin before meals and at bedtime she is on metformin at home which was on hold during this hospital stay. Plan is to check for hemoglobin A1c. 10/05/2018-patient has history of type 2 diabetes mellitus blood sugar is 109. Patient is presently on insulin sliding scale. Hemoglobin A1c is pending. 10/06/2018-patient has type 2 diabetes mellitus blood sugar is today is 95. Patient is on insulin sliding scale. hemoglobin A1c came back 5.5. (4) Essential hypertension Is this a current diagnosis for this admission?: No Plan: 10/03/2018 patient blood pressure today is 143/72. Stable. Plan is to resume her home medications today. Patient is on lisinopril 5 mg p.o. daily, metoprolol 25 mg p.o. daily at home in addition to that patient is receiving Lasix 20 mg p.o. a.m. 10/04/2018-patient blood pressure today is 159/88 slightly elevated. Patient denies any complaints of chest pains. Presently on lisinopril 5 mg daily metoprolol 50 mg p.o. twice a day, Lasix 10 mg twice a day I am going to increase the Lasix to 20 mg daily. 10/05/2018-patient blood pressure is 123/86. With pulse rate of 105. Patient is refusing the p.o. medications this morning. Continue to check blood pressures every shift. 10/06/2018-blood pressure today is 128/47 with heart rate of 78. Presently on lisinopril 5 mg daily and metoprolol 50 mg twice daily, Lasix 20 mg daily. Plan is to continue the present management. (5) Altered mental status Qualifiers: Altered mental status type: delirium Qualified Code(s): R41.0 - D isorientation, unspecified Is this a current diagnosis for this admission?: Yes Plan: 10/05/2018-patient has altered mental status since yesterday most likely secondary to advancing dementia. Unable to maintain good communication. Patient is h allucinating. In my opinion is not safe for her to go to home. My recommendation is patient with the need to go to snf or long-term care facility like assisted living. 10/06/2018-patient has altered mental status most likely secondary to underlying dementia family is notified about it as per the family this change in altered mental status with hallucinations is present for a long time nothing new. Is likely secondary to underlying dementia. - Time Time Spent with patient: 15-24 minutes Medications reviewed and adjusted accordingly: Yes Anticipated discharge: Home, Home with Homehealth
[2018-10-06] MEDS: ACETAMINOPHEN 325 MG TABLET PO PRN ×2 (13:34→21:23)
[2018-10-06] MEDS: LEVOFLOXACIN 750 MG TABLET PO SCH (18:00)
[2018-10-06] MEDS ORDERED: DIAZEPAM INJ 10 MG/2 ML DISP.SYRIN ONE (23:24)
[2018-10-07] MEDS: LEVOTHYROXINE SODIUM 0.088 MG TABLET PO SCH (05:47)
[2018-10-07] MEDS: HEPARIN SOD (PORCINE) 5,000 UNIT/ML 1 ML SYRINGE SUBCUT SCH ×3 (05:47→21:37)
[2018-10-07] MEDS: BUDESONIDE NEB 0.5 MG/2 ML AMPUL NEB SCH ×2 (08:50→20:16)
[2018-10-07] MEDS: LEVALBUTEROL HCL NEB 1.25 MG/3 ML AMPUL NEB SCH ×3 (08:50→23:14)
[2018-10-07] MEDS: IPRATROPIUM BROMIDE 0.02% NEB 0.5 MG/2.5 ML AMPUL NEB SCH ×3 (08:50→23:14)
--- NOTE | 2018-10-07 10:22 | PDOC PROGRESS REPORT ---
Subjective Progress Note for:: 10/07/18 Subjective:: 10/03/[id number]-eaae-old female admitted for COPD exacerbation. No acute events since the patient. Patient is afebrile. Comfortably in the bed. Denies any problems. 10/04/[id number]-cinh-old female admitted for COPD exacerbation heart rate this morning is around 130s asymptomatic denies any chest pains. She is on metoprolol 25 mg p.o. daily increase metoprolol to 50 mg twice a day ,tachycardia may be secondary to underlying COPD exacerbation. Patient is confused not agitated. Patient hemoglobin also came back at 7.8 plan is to give 1 unit of PRBC. 10/05/2018-patient is comfortably in the bed sleeping. On calling she is waking up and drifting back to sleep. The nurse told me this morning patient is refusing to take her medications. Patient is talking out of her mind. She is confused. Is unsafe for her to go back home even with home health. In my opinion she may need to go to a long-term care facility. 10/06/2018-patient is in the bed complaining of throat congestion she requesting somebody to comment clear her throat other than that no complaints comfortable in the bed. No acute events in the last 24 hours. Patient is afebrile. She got a PICC line yesterday and she was given 1 unit of PRBC hemoglobin came up to 9.4. Nurses got in touch with the family members about change in mental status and hallucinations the information they gave is that the patient is doing this for a long time they get used to it and prefer to take her home once she is stable. 10/07/2018-it is comfortably in the chair still confused not agitated. No acute events in the last 24 hours. Patient is afebrile. Reason For Visit: ACUTE EXACERBATION OF COPD Physical Exam Vital Signs: Temp Pulse Resp BP Pulse Ox 98.0 F 88 16 109/59 L 100 10/07/18 08:22 10/07/18 08:22 10/07/18 08:22 10/07/18 08:22 10/07/18 08:22 Intake & Output 10/06/18 10/07/18 10/08/18 05:59 06:59 06:59 Intake Total Balance Weight General appearance: PRESENT: no acute distress, obese Head exam: PRESENT: atraumatic Eye exam: PRESENT: PERRLA Mouth exam: PRESENT: moist, tongue midline Neck exam: ABSENT: carotid bruit, JVD, lymphadenopathy, thyromegaly Respiratory exam: PRESENT: decreased breath sounds Cardiovascular exam: PRESENT: tachycardia GI/Abdominal exam: PRESENT: normal bowel sounds, soft. ABSENT: distended, guarding, mass, organolmegaly, rebound, tenderness Neurological exam: PRESENT: alert, CN II-XII grossly intact. ABSENT: oriented to person, oriented to place, oriented to time, oriented to situation, motor sensory deficit Psychiatric exam: PRESENT: anxious. ABSENT: normal mood Results Laboratory Results: 10/06/18 04:00 10/06/18 04:00 10/02/18 10/03/18 10/03/18 23:14 03:20 03:20 Creatine Kinase < 20 L CK-MB (CK-2) 0.27 Troponin I 0.016 < 0.012 NT-Pro-B Natriuret Pep 836 H 10/03/18 10/03/18 10/03/18 09:15 09:15 16:33 Creatine Kinase < 20 L < 20 L CK-MB (CK-2) 0.28 Troponin I < 0.012 NT-Pro-B Natriuret Pep 10/03/18 16:33 Creatine Kinase CK-MB (CK-2) 0.30 Troponin I 0.015 NT-Pro-B Natriuret Pep Impressions: Chest X-Ray 10/02/18 20:47 IMPRESSION: Right lung consolidation. Bilateral atelectasis. Chest/Abdomen CTA 10/03/18 02:51 IMPRESSION: 1. No pulmonary embolus identified. 2. Moderate right pleural effusion with compressive atelectasis of the right lower lobe. 3. The right hilar region is stable in appearance with persistent soft tissue density. This exam was performed according to our departmental dose-optimization program, which includes automated exposure control, adjustment of the mA and/or kV according to patient size and/or use of iterative reconstruction technique. Guidance Fluoroscopy 10/04/18 00:00 IMPRESSION: SUCCESSFUL PLACEMENT OF A 5 FR DUAL LUMEN 33 CM PICC IN THE RIGHT BASILIC VEIN. Interventional Vascular Procedure 10/04/18 00:00 IMPRESSION: SUCCESSFUL PLACEMENT OF A 5 FR DUAL LUMEN 33 CM PICC IN THE RIGHT BASILIC VEIN. PICC Line Insertion 10/04/18 00:00 IMPRESSION: SUCCESSFUL PLACEMENT OF A 5 FR DUAL LUMEN 33 CM PICC IN THE RIGHT BASILIC VEIN. Assessment & Plan - Diagnosis (1) Acute and chronic respiratory failure Qualifiers: Respiratory failure complication: hypercapnia Qualified Code(s): J96.22 - Acute and chronic respiratory failure with hypercapnia Is this a current diagnosis for this admission?: Yes Plan: Patient's acute respiratory failure will be treated with supplemental oxygen and close clinical monitoring. Blood gas determinations can be repeated on an as- needed basis. 10/03/2018-patient is admitted with acute on chronic respiratory failure most likely secondary to COPD exacerbation. Presently on Xopenex, Pulmicort, Atrovent and albuterol nebulizations. Patient is also receiving IV Solu-Medrol. Pulse ox is 100% on 2 L. 10/04/2018-patient was admitted with acute on chronic respiratory failure most likely secondary to COPD exacerbation. She is on Xopenex, Pulmicort, Atrovent and albuterol nebulizations also receiving IV Solu-Medrol 40 mg every 12 hours. Pulse ox is 100% on 3 L. She is becoming tachycardic so albuterol nebulization is discontinued today. 10/05/2018-this elderly female admitted with acute on chronic respiratory failure secondary to COPD exacerbation. She is on Xopenex, Pulmicort, Atrovent nebulizations and also on IV Solu-Medrol 40 mg every 12 hours. Pulse ox today he is 100% on 2 L. Acute on chronic respiratory failure resolving. The main concern is change in mental status may be secondary to advanced dementia. Try to reach the family yesterday ,in the demographic sheet the number is available is Danyelle Lund. 10/06/2018-patient is admitted with acute on chronic respiratory failure secondary to COPD exacerbation presently on Xopenex, Pulmicort, Atrovent nebulizations. Pulse ox is 100% on 2 L. IV Solu-Medrol is discontinued. On examination today chest bilateral entry was decreased no wheezing no crepitations. 09/09/2018-this elderly female admitted with acute on chronic respiratory failure secondary to COPD exacerbation presently on Xopenex, Pulmicort, Atrovent nebulizations. Pulse ox is 100% on 2 L. Chest x-ray bilaterally was decreased no wheezing no crepitations. (2) COPD exacerbation Is this a current diagnosis for this admission?: Yes Plan: Patient COPD will be treated with an aggressive pulmonary toilet utilizing Xopenex, Pulmicort, Atrovent and albuterol via nebulizer as well as intravenous Solu-Medrol and oral guaifenesin. 10/03/2018 patient is admitted with COPD exacerbation plan is to continue scheduled and as needed nebulizations along with IV Solu-Medrol. 10/04/2018-patient has history of COPD admitted for COPD exacerbation plan is to continue IV Solu-Medrol, Xopenex, Pulmicort and Atrovent nebulizations. Is also receiving oral guaifenesin for cough. 10/05/2018-patient has history of chronic COPD admitted for COPD exacerbation. Pulse ox is 100% on 3 L. Plan is to continue the present management. Presently she is not on IV Solu-Medrol. 10/06/2018-patient has history of COPD admitted for COPD exacerbation pulse oxes are at her baseline on 2 L pulse ox is 100% today. Plan is to continue the present management. 09/09/2018-patient has history of COPD admitted with COPD exacerbation pulse ox 100% 2 L. Plan is to continue the present management. (3) Type 2 diabetes mellitus Is this a current diagnosis for this admission?: No Plan: Patient be continued on her current diabetic therapy and a diabetic diet. Additionally a sliding scale utilizing regular insulin will be used to cover hyperglycemia on AC and at bedtime blood sugar determinations. 10/03/2018-patient has history of type 2 diabetes mellitus patient is on insulin sliding scale she is also on metformin at home which was on hold. Latest blood sugars are 129 is stable. plan is to continue the present management. Dietary consult was requested. To check hemoglobin A1c tomorrow morning. 10/04/2018-patient has history of type 2 diabetes mellitus blood sugar is 131 today patient is on sliding scale insulin before meals and at bedtime she is on metformin at home which was on hold during this hospital stay. Plan is to check for hemoglobin A1c. 10/05/2018-patient has history of type 2 diabetes mellitus blood sugar is 109. Patient is presently on insulin sliding scale. Hemoglobin A1c is pending. 10/06/2018-patient has type 2 diabetes mellitus blood sugar is today is 95. Patient is on insulin sliding scale. hemoglobin A1c came back 5.5. 10/07/2018-patient has history of type 2 diabetes mellitus blood sugar today is 107, patient is presently on insulin sliding scale hemoglobin A1c is 5.5 plan is to continue the present management. (4) Essential hypertension Is this a current diagnosis for this admission?: No Plan: 10/03/2018 patient blood pressure today is 143/72. Stable. Plan is to resume her home medications today. Patient is on lisinopril 5 mg p.o. daily, metoprolol 25 mg p.o. daily at home in addition to that patient is receiving Lasix 20 mg p.o. a.m. 10/04/2018-patient blood pressure today is 159/88 slightly elevated. Patient denies any complaints of chest pains. Presently on lisinopril 5 mg daily metoprolol 50 mg p.o. twice a day, Lasix 10 mg twice a day I am going to increa se the Lasix to 20 mg daily. 10/05/2018-patient blood pressure is 123/86. With pulse rate of 105. Patient is refusing the p.o. medications this morning. Continue to check blood pressures every shift. 10/06/2018-blood pressure today is 128/47 with heart rate of 78. Presently on lisinopril 5 mg daily and metoprolol 50 mg twice daily, Lasix 20 mg daily. Plan is to continue the present management. 10/07/2018-patient blood pressure today is 109/59 stable presently on lisinopril 5 mg p.o. daily metoprolol 50 mg p.o. twice a day Lasix 20 mg p.o. daily plan is to continue the present management. (5) Altered mental status Qualifiers: Altered mental status type: delirium Qualified Code(s): R41.0 - Disorientation, unspecified Is this a current diagnosis for this admission?: Yes Plan: 10/05/2018-patient has altered mental status since yesterday most likely secondary to advancing dementia. Unable to maintain good communication. Patient is hallucinating. In my opinion is not safe for her to go to home. My recommendation is patient with the need to go to snf or long-term care facility like assisted living. 10/06/2018-patient has altered mental status most likely secondary to underlying dementia family is notified about it as per the family this change in altered mental status with hallucinations is present for a long time nothing new. Is likely secondary to underlying dementia. 10/07/2018 patient has a chronic history of altered mental status as per the fami ly this is her baseline. In my opinion she is unsafe to go home she needs to go to a assisted facility I am going to put a consult for home health to get in touch with the DSS. - Time Time Spent with patient: 15-24 minutes Medications reviewed and adjusted accordingly: Yes Anticipated discharge: SNF
[2018-10-07] MEDS: DOCUSATE SODIUM 100 MG CAPSULE PO SCH ×2 (11:06→18:14)
[2018-10-07] MEDS: METOPROLOL SUCCINATE 50 MG TAB.SR.24H PO SCH ×2 (11:06→21:38)
[2018-10-07] MEDS: GUAIFENESIN 600 MG TABLET.SA PO SCH ×2 (11:06→21:37)
[2018-10-07] MEDS: LISINOPRIL 10 MG TABLET PO SCH (11:07)
[2018-10-07] MEDS: FAMOTIDINE 20 MG TABLET PO SCH ×2 (11:07→21:38)
[2018-10-07] MEDS: FUROSEMIDE 20 MG TABLET PO SCH (11:07)
[2018-10-07] MEDS: NYSTATIN TOPICAL POWDER 15 GM TP SCH ×4 (11:08→18:15)
[2018-10-07] MEDS: LORAZEPAM 1 MG TABLET PO PRN ×2 (11:16→18:14)
[2018-10-07] MEDS: FLUTICASONE NASAL SPRAY 50 MCG/SPRY 120 SPRAY/16 GM NASL SCH (11:16)
[2018-10-08] MEDS: LORAZEPAM 1 MG TABLET PO PRN (02:28)
[2018-10-08] MEDS: LEVOTHYROXINE SODIUM 0.088 MG TABLET PO SCH (05:24)
[2018-10-08] MEDS: HEPARIN SOD (PORCINE) 5,000 UNIT/ML 1 ML SYRINGE SUBCUT SCH ×3 (05:24→21:48)
[2018-10-08 07:32] LABS: ABSOLUTE EOSINOPHILS # (AUTO) 0.1 10^3/uL (0.0-0.6); ABSOLUTE LYMPHOCYTES (AUTO) 0.9 10^3/uL (0.5-4.7); ABSOLUTE MONOCYTES (AUTO) 0.7 10^3/uL (0.1-1.4); ABSOLUTE NEUT (AUTO) 3.9 10^3/uL (1.7-8.2); BASOPHILS % (AUTO) 0.2 % (0-2); EOSINOPHILS % (AUTO) 2.5 % (0-6); HEMATOCRIT 28.2 % (36.0-47.0); HEMOGLOBIN 9.6 g/dL (12.0-15.5); LYMPHOCYTES % (AUTO) 15.2 % (13-45); MEAN CORPUSCULAR HEMOGLOBIN 32.2 pg (27.0-33.4); MEAN CORPUSCULAR HGB CONC 34.1 g/dL (32.0-36.0); MEAN CORPUSCULAR VOLUME 95 fl (80-97); MONOCYTES % (AUTO) 12.9 % (3-13); PLATELET COUNT 227 10^3/uL (150-450); RED BLOOD COUNT 2.98 10^6/uL (3.72-5.28); RED CELL DISTRIBUTION WIDTH 15.5 % (11.5-14.0); SEGMENTED NEUTROPHILS % (AUTO) 69.2 % (42-78); TOTAL CELLS COUNTED % (AUTO) 100 %; WHITE BLOOD COUNT 5.6 10^3/uL (4.0-10.5)
[2018-10-08] MEDS: IPRATROPIUM BROMIDE 0.02% NEB 0.5 MG/2.5 ML AMPUL NEB SCH ×3 (07:42→23:51)
[2018-10-08] MEDS: BUDESONIDE NEB 0.5 MG/2 ML AMPUL NEB SCH (07:42)
[2018-10-08] MEDS: LEVALBUTEROL HCL NEB 1.25 MG/3 ML AMPUL NEB SCH ×3 (07:42→23:51)
[2018-10-08 07:59] LABS: ALANINE AMINOTRANSFERASE 22 U/L (9-52); ALBUMIN 2.9 g/dL (3.5-5.0); ALKALINE PHOSPHATASE 54 U/L (38-126); ANION GAP 6 (5-19); ASPARTATE AMINO TRANSFERASE 14 U/L (14-36); BILIRUBIN,DIRECT 0.2 mg/dL (0.0-0.4); BILIRUBIN,TOTAL 0.3 mg/dL (0.2-1.3); BLOOD UREA NITROGEN 15 mg/dL (7-20); CALCIUM 9.1 mg/dL (8.4-10.2); CARBON DIOXIDE 37 mmol/L (22-30); CHLORIDE 97 mmol/L (98-107); GLUCOSE 87 mg/dL (75-110); POTASSIUM 3.2 mmol/L (3.6-5.0); SODIUM 139.9 mmol/L (137-145); TOTAL PROTEIN 4.9 g/dL (6.3-8.2)
[2018-10-08] MEDS: DOCUSATE SODIUM 100 MG CAPSULE PO SCH ×2 (10:44→18:05)
[2018-10-08] MEDS: FUROSEMIDE 20 MG TABLET PO SCH (10:44)
[2018-10-08] MEDS: NYSTATIN TOPICAL POWDER 15 GM TP SCH ×4 (10:45→18:06)
[2018-10-08] MEDS: GUAIFENESIN 600 MG TABLET.SA PO SCH ×2 (10:45→21:48)
[2018-10-08] MEDS: FLUTICASONE NASAL SPRAY 50 MCG/SPRY 120 SPRAY/16 GM NASL SCH (10:45)
[2018-10-08] MEDS: METOPROLOL SUCCINATE 50 MG TAB.SR.24H PO SCH ×2 (10:48→21:49)
[2018-10-08] MEDS: FAMOTIDINE 20 MG TABLET PO SCH ×2 (10:48→21:48)
[2018-10-08] MEDS ORDERED: METOPROLOL TARTRATE PF/INJ 5 MG/5 ML SDV IV PRN (10:48)
[2018-10-08] MEDS: LISINOPRIL 10 MG TABLET PO SCH (10:48)
--- NOTE | 2018-10-08 11:01 | PDOC PROGRESS REPORT ---
Subjective Progress Note for:: 10/08/18 Subjective:: 10/03/[id number]-bhfs-old female admitted for COPD exacerbation. No acute events since the patient. Patient is afebrile. Comfortably in the bed. Denies any problems. 10/04/[id number]-zygo-old female admitted for COPD exacerbation heart rate this morning is around 130s asymptomatic denies any chest pains. She is on metoprolol 25 mg p.o. daily increase metoprolol to 50 mg twice a day ,tachycardia may be secondary to underlying COPD exacerbation. Patient is confused not agitated. Patient hemoglobin also came back at 7.8 plan is to give 1 unit of PRBC. 10/05/2018-patient is comfortably in the bed sleeping. On calling she is waking up and drifting back to sleep. The nurse told me this morning patient is refusing to take her medications. Patient is talking out of her mind. She is confused. Is unsafe for her to go back home even with home health. In my opinion she may need to go to a long-term care facility. 10/06/2018-patient is in the bed complaining of throat congestion she requesting somebody to comment clear her throat other than that no complaints comfortable in the bed. No acute events in the last 24 hours. Patient is afebrile. She got a PICC line yesterday and she was given 1 unit of PRBC hemoglobin came up to 9.4. Nurses got in touch with the family members about change in mental status and hallucinations the information they gave is that the patient is doing this for a long time they get used to it and prefer to take her home once she is stable. 10/07/2018-it is comfortably in the chair still confused not agitated. No acute events in the last 24 hours. Patient is afebrile. 10/08/2018-patient is comfortably in the bed sleeping. Woke up and calling. No acute events in the last 24 hours. Patient is afebrile. in my opinion patient is not safe to go home and also in my opinion she needs to go to a long-term care facility. Reason For Visit: ACUTE EXACERBATION OF COPD Physical Exam Vital Signs: Temp Pulse Resp BP Pulse Ox 99.8 F 88 16 143/68 H 100 10/08/18 03:07 10/08/18 07:42 10/08/18 07:42 10/08/18 03:07 10/08/18 07:42 Intake & Output 10/07/18 10/08/18 10/09/18 06:59 06:59 06:59 Intake Total 777 Balance 777 Weight 69.1 kg General appearance: PRESENT: no acute distress Head exam: PRESENT: atraumatic Eye exam: PRESENT: PERRLA Neck exam: ABSENT: carotid bruit, JVD, lymphadenopathy, thyromegaly Respiratory exam: PRESENT: clear to auscultation jeff. ABSENT: rales, rhonchi, wheezes Cardiovascular exam: PRESENT: RRR. ABSENT: diastolic murmur, rubs, systolic murmur GI/Abdominal exam: PRESENT: normal bowel sounds, soft. ABSENT: distended, guarding, mass, organolmegaly, rebound, tenderness Extremities exam: PRESENT: full ROM. ABSENT: calf tenderness, clubbing, pedal edema Neurological exam: PRESENT: alert, awake, oriented to person, oriented to place, oriented to time, oriented to situation, CN II-XII grossly intact. ABSENT: motor sensory deficit Psychiatric exam: PRESENT: appropriate affect, normal mood. ABSENT: homicidal ideation, suicidal ideation Results Laboratory Results: 10/08/18 06:10 10/08/18 06:10 10/08/18 10/08/18 06:10 06:10 WBC 5.6 RBC 2.98 L Hgb 9.6 L Hct 28.2 L MCV 95 MCH 32.2 MCHC 34.1 RDW 15.5 H Plt Count 227 Seg Neutrophils % 69.2 Lymphocytes % 15.2 Monocytes % 12.9 Eosinophils % 2.5 Basophils % 0.2 Absolute Neutrophils 3.9 Absolute Lymphocytes 0.9 Absolute Monocytes 0.7 Absolute Eosinophils 0.1 Absolute Basophils 0.0 Sodium 139.9 Potassium 3.2 L Chloride 97 L Carbon Dioxide 37 H Anion Gap 6 BUN 15 Creatinine 1.11 Est GFR ( Amer) 58 L Est GFR (Non-Af Amer) 48 L Glucose 87 Calcium 9.1 Magnesium 1.8 Total Bilirubin 0.3 AST 14 ALT 22 Alkaline Phosphatase 54 Total Protein 4.9 L Albumin 2.9 L 10/03/18 01:25 Blood Blood Culture - Final NO GROWTH IN 5 DAYS 10/02/18 23:14 Blood Blood Culture - Final NO GROWTH IN 5 DAYS 10/02/18 10/03/18 10/03/18 23:14 03:20 03:20 Creatine Kinase < 20 L CK-MB (CK-2) 0.27 Troponin I 0.016 < 0.012 NT-Pro-B Natriuret Pep 836 H 10/03/18 10/03/18 10/03/18 09:15 09:15 16:33 Creatine Kinase < 20 L < 20 L CK-MB (CK-2) 0.28 Troponin I < 0.012 NT-Pro-B Natriuret Pep 10/03/18 16:33 Creatine Kinase CK-MB (CK-2) 0.30 Troponin I 0.015 NT-Pro-B Natriuret Pep Impressions: Chest X-Ray 10/02/18 20:47 IMPRESSION: Right lung consolidation. Bilateral atelectasis. Chest/Abdomen CTA 10/03/18 02:51 IMPRESSION: 1. No pulmonary embolus identified. 2. Moderate right pleural effusion with compressive atelectasis of the right lower lobe. 3. The right hilar region is stable in appearance with persistent soft tissue density. This exam was performed according to our departmental dose-optimization program, which includes automated exposure control, adjustment of the mA and/or kV according to patient size and/or use of iterative reconstruction technique. Guidance Fluoroscopy 10/04/18 00:00 IMPRESSION: SUCCESSFUL PLACEMENT OF A 5 FR DUAL LUMEN 33 CM PICC IN THE RIGHT BASILIC VEIN. Interventional Vascular Procedure 10/04/18 00:00 IMPRESSION: SUCCESSFUL PLACEMENT OF A 5 FR DUAL LUMEN 33 CM PICC IN THE RIGHT BASILIC VEIN. PICC Line Insertion 10/04/18 00:00 IMPRESSION: SUCCESSFUL PLACEMENT OF A 5 FR DUAL LUMEN 33 CM PICC IN THE RIGHT BASILIC VEIN. Assessment & Plan - Diagnosis (1) Acute and chronic respiratory failure Qualifiers: Respiratory failure complication: hypercapnia Qualified Code(s): J96.22 - Acute and chronic respiratory failure with hypercapnia Is this a current diagnosis for this admission?: Yes Plan: Patient's acute respiratory failure will be treated with supplemental oxygen and close clinical monitoring. Blood gas determinations can be repeated on an as- needed basis. 10/03/2018-patient is admitted with acute on chronic respiratory failure most likely secondary to COPD exacerbation. Presently on Xopenex, Pulmicort, Atrovent and albuterol nebulizations. Patient is also receiving IV Solu-Medrol. Pulse ox is 100% on 2 L. 10/04/2018-patient was admitted with acute on chronic respiratory failure most likely secondary to COPD exacerbation. She is on Xopenex, Pulmicort, Atrovent and albuterol nebulizations also receiving IV Solu-Medrol 40 mg every 12 hours. Pulse ox is 100% on 3 L. She is becoming tachycardic so albuterol nebulization is discontinued today. 10/05/2018-this elderly female admitted with acute on chronic respiratory failure secondary to COPD exacerbation. She is on Xopenex, Pulmicort, Atrovent nebulizations and also on IV Solu-Medrol 40 mg every 12 hours. Pulse ox today he is 100% on 2 L. Acute on chronic respiratory failure resolving. The main concern is change in mental status may be secondary to advanced dementia. Try to reach the family yesterday ,in the demographic sheet the number is available is Danyelle Lund. 10/06/2018-patient is admitted with acute on chronic respiratory failure secondary to COPD exacerbation presently on Xopenex, Pulmicort, Atrovent nebulizations. Pulse ox is 100% on 2 L. IV Solu-Medrol is discontinued. On examination today chest bilateral entry was decreased no wheezing no crepitations. 10/07/2018-this elderly female admitted with acute on chronic respiratory failure secondary to COPD exacerbation presently on Xopenex, Pulmicort, Atrovent nebulizations. Pulse ox is 100% on 2 L. Chest x-ray bilaterally was decreased no wheezing no crepitations. 10/08/2018-elderly female admitted with acute on chronic respiratory failure secondary to COPD exacerbation. Patient condition is stable. Socks is 100% on 2 L. Patient is presently on Xopenex, Pulmicort, Atrovent nebulizations. Pulmicort nebulization is discontinued from today. on examination chest b ilateral entry was decreased no wheezing no crepitations. (2) COPD exacerbation Is this a current diagnosis for this admission?: Yes Plan: Patient COPD will be treated with an aggressive pulmonary toilet utilizing Xopenex, Pulmicort, Atrovent and albuterol via nebulizer as well as intravenous Solu-Medrol and oral guaifenesin. 10/03/2018 patient is admitted with COPD exacerbation plan is to continue scheduled and as needed nebulizations along with IV Solu-Medrol. 10/04/2018-patient has history of COPD admitted for COPD exacerbation plan is to continue IV Solu-Medrol, Xopenex, Pulmicort and Atrovent nebulizations. Is also receiving oral guaifenesin for cough. 10/05/2018-patient has history of chronic COPD admitted for COPD exacerbation. Pulse ox is 100% on 3 L. Plan is to continue the present management. Presently she is not on IV Solu-Medrol. 10/06/2018-patient has history of COPD admitted for COPD exacerbation pulse oxes are at her baseline on 2 L pulse ox is 100% today. Plan is to continue the present management. 10/07/2018-patient has history of COPD admitted with COPD exacerbation pulse ox 100% 2 L. Plan is to continue the present management. 10/08/2018-patient has history of COPD admitted for COPD exacerbation which was resolved. Pulse ox is 100% on 2 L. Presently on a Xopenex, Atrovent nebulizations. To continue the present management. (3) Type 2 diabetes mellitus Is this a current diagnosis for this admission?: No Plan: Patient be continued on her current diabetic therapy and a diabetic diet. Additionally a sliding scale utilizing regular insulin will be used to cover hyperglycemia on AC and at bedtime blood sugar determinations. 10/03/2018-patient has history of type 2 diabetes mellitus patient is on insulin sliding scale she is also on metformin at home which was on hold. Latest blood sugars are 129 is stable. plan is to continue the present management. Dietary consult was requested. To check hemoglobin A1c tomorrow morning. 10/04/2018-patient has history of type 2 diabetes mellitus blood sugar is 131 today patient is on sliding scale insulin before meals and at bedtime she is on metformin at home which was on hold during this hospital stay. Plan is to check for hemoglobin A1c. 10/05/2018-patient has history of type 2 diabetes mellitus blood sugar is 109. Patient is presently on insulin sliding scale. Hemoglobin A1c is pending. 10/06/2018-patient has type 2 diabetes mellitus blood sugar is today is 95. Patient is on insulin sliding scale. hemoglobin A1c came back 5.5. 10/07/2018-patient has history of type 2 diabetes mellitus blood sugar today is 107, patient is presently on insulin sliding scale hemoglobin A1c is 5.5 plan is to continue the present management. 10/08/2018-patient has history of type 2 diabetes mellitus latest blood sugar is 87 patient is on insulin sliding scale before meals and at bedtime, hemoglobin A1c is 5.5 plan is to continue the present management. Patient is taking metformin at home which was on hold here. (4) Essential hypertension Is this a current diagnosis for this admission?: No Plan: 10/03/2018 patient blood pressure today is 143/72. Stable. Plan is to resume her home medications today. Patient is on lisinopril 5 mg p.o. daily, metoprolol 25 mg p.o. daily at home in addition to that patient is receiving Lasix 20 mg p.o. a.m. 10/04/2018-patient blood pressure today is 159/88 slightly elevated. Patient denies any complaints of chest pains. Presently on lisinopril 5 mg daily meto prolol 50 mg p.o. twice a day, Lasix 10 mg twice a day I am going to increase the Lasix to 20 mg daily. 10/05/2018-patient blood pressure is 123/86. With pulse rate of 105. Patient is refusing the p.o. medications this morning. Continue to check blood pressures every shift. 10/06/2018-blood pressure today is 128/47 with heart rate of 78. Presently on lisinopril 5 mg daily and metoprolol 50 mg twice daily, Lasix 20 mg daily. Plan is to continue the present management. 10/07/2018-patient blood pressure today is 109/59 stable presently on lisinopril 5 mg p.o. daily metoprolol 50 mg p.o. twice a day Lasix 20 mg p.o. daily plan is to continue the present management. 10/08/2018-patient blood pressure today is 143/68 she is on lisinopril 5 mg daily, metoprolol 50 mg twice daily, Lasix 20 mg daily plan is to continue the present management. (5) Altered mental status Qualifiers: Altered mental status type: delirium Qualified Code(s): R41.0 - Disorientation, unspecified Is this a current diagnosis for this admission?: Yes Plan: 10/05/2018-patient has altered mental status since yesterday most likely secondary to advancing dementia. Unable to maintain good communication. Patient is hallucinating. In my opinion is not safe for her to go to home. My recommenda tion is patient with the need to go to snf or long-term care facility like assisted living. 10/06/2018-patient has altered mental status most likely secondary to underlying dementia family is notified about it as per the family this change in altered mental status with hallucinations is present for a long time nothing new. Is likely secondary to underlying dementia. 10/07/2018 patient has a chronic history of altered mental status as per the family this is her baseline. In my opinion she is unsafe to go home she needs to go to a alf facility I am going to put a consult for home health to get in touch with the DSS. 10/08/2018-patient has history of advanced dementia with confusion episodes and agitation as per the family members. Presently on IV Ativan as needed basis. No acute events in the last 24 hours. In my opinion patient is not safe to go home she needs to go to a nursing facility or long-term care facility. - Time Time Spent with patient: 15-24 minutes Medications reviewed and adjusted accordingly: Yes Anticipated discharge: SNF
--- NOTE | 2018-10-08 21:05 | RADIOLOGY REPORT (SQ) ---
EXAM DESCRIPTION: CT HEAD WITHOUT IV CONTRAST COMPLETED DATE/TME: 10/08/2018 00:00 CLINICAL HISTORY: 73 years, Female, altered mental status This exam was performed according to our departmental dose-optimization program which includes automated exposure control, adjustment of the mA and/or kVp according to patient size and/or use of iterative reconstruction technique where applicable. FINDINGS: No acute intracranial hemorrhage, mass effect or midline shift. No extra-axial fluid collections. Ventricles and subarachnoid spaces are moderately dilated consistent with cerebral atrophy. Moderate patchy hypodense areas in periventricular white matter of both cerebral hemispheres consistent with chronic small vessel ischemic changes. Visualized paranasal sinuses are clear. Bilateral mastoid air cells demonstrate diffuse opacification. No erosive changes are noted. The skull is intact. IMPRESSION: No acute intracranial hemorrhage. Findings consistent with bilateral mastoiditis, uncertain chronicity.
[2018-10-08 21:11] LABS: ARTERIAL BLOOD BASE EXCESS 10.6 mmol/L; ARTERIAL BLOOD H2CO3 1.64 mmol/L (1.05-1.35); ARTERIAL BLOOD HCO3 36.2 mmol/L (20-24); ARTERIAL BLOOD O2 SATURATION 97.9 % (94-98); ARTERIAL BLOOD PCO2 54.4 mmHg (35-45); ARTERIAL BLOOD PH 7.44 (7.35-7.45); ARTERIAL BLOOD PO2 105.3 mmHg (80-100); ARTERIAL BLOOD TOTAL CO2 37.9 mmol/L (21-25)
[2018-10-08 21:12] LABS: ARTERIAL BLOOD FIO2 35%
[2018-10-09] MEDS: LORAZEPAM 1 MG TABLET PO PRN (01:36)
[2018-10-09] MEDS: HEPARIN SOD (PORCINE) 5,000 UNIT/ML 1 ML SYRINGE SUBCUT SCH ×3 (05:16→21:18)
[2018-10-09] MEDS: LEVOTHYROXINE SODIUM 0.088 MG TABLET PO SCH (05:16)
[2018-10-09 05:26] LABS: ABSOLUTE EOSINOPHILS # (AUTO) 0.1 10^3/uL (0.0-0.6); ABSOLUTE LYMPHOCYTES (AUTO) 0.7 10^3/uL (0.5-4.7); ABSOLUTE MONOCYTES (AUTO) 0.7 10^3/uL (0.1-1.4); ABSOLUTE NEUT (AUTO) 3.5 10^3/uL (1.7-8.2); BASOPHILS % (AUTO) 0.1 % (0-2); EOSINOPHILS % (AUTO) 1.9 % (0-6); HEMATOCRIT 27.2 % (36.0-47.0); HEMOGLOBIN 9.3 g/dL (12.0-15.5); LYMPHOCYTES % (AUTO) 13.8 % (13-45); MEAN CORPUSCULAR HEMOGLOBIN 32.1 pg (27.0-33.4); MEAN CORPUSCULAR VOLUME 94 fl (80-97); MONOCYTES % (AUTO) 14.6 % (3-13); PLATELET COUNT 214 10^3/uL (150-450); RED BLOOD COUNT 2.89 10^6/uL (3.72-5.28); RED CELL DISTRIBUTION WIDTH 15.6 % (11.5-14.0); SEGMENTED NEUTROPHILS % (AUTO) 69.6 % (42-78); TOTAL CELLS COUNTED % (AUTO) 100 %; WHITE BLOOD COUNT 5.1 10^3/uL (4.0-10.5)
[2018-10-09 05:55] LABS: ALANINE AMINOTRANSFERASE 28 U/L (9-52); ALBUMIN 2.7 g/dL (3.5-5.0); ALKALINE PHOSPHATASE 54 U/L (38-126); ASPARTATE AMINO TRANSFERASE 12 U/L (14-36); BILIRUBIN,DIRECT 0.1 mg/dL (0.0-0.4); BILIRUBIN,TOTAL 0.2 mg/dL (0.2-1.3); BLOOD UREA NITROGEN 17 mg/dL (7-20); GLUCOSE 98 mg/dL (75-110); POTASSIUM 3.4 mmol/L (3.6-5.0); TOTAL PROTEIN 4.8 g/dL (6.3-8.2)
[2018-10-09 06:01] LABS: CHLORIDE 97 mmol/L (98-107)
[2018-10-09 06:07] LABS: ANION GAP 3 (5-19)
[2018-10-09 06:09] LABS: CARBON DIOXIDE 40 mmol/L (22-30)
[2018-10-09] MEDS ORDERED: LORAZEPAM 1 MG TABLET PO PRN (06:11)
[2018-10-09] MEDS: IPRATROPIUM BROMIDE 0.02% NEB 0.5 MG/2.5 ML AMPUL NEB SCH ×3 (08:15→23:53)
[2018-10-09] MEDS: LEVALBUTEROL HCL NEB 1.25 MG/3 ML AMPUL NEB SCH ×3 (08:16→23:53)
[2018-10-09 10:30] LABS: ARTERIAL BLOOD BASE EXCESS 10.7 mmol/L; ARTERIAL BLOOD H2CO3 1.91 mmol/L (1.05-1.35); ARTERIAL BLOOD HCO3 37.5 mmol/L (20-24); ARTERIAL BLOOD O2 SATURATION 95.8 % (94-98); ARTERIAL BLOOD PCO2 63.4 mmHg (35-45); ARTERIAL BLOOD PH 7.39 (7.35-7.45); ARTERIAL BLOOD PO2 83.1 mmHg (80-100); ARTERIAL BLOOD TOTAL CO2 39.5 mmol/L (21-25)
[2018-10-09 10:33] LABS: ARTERIAL BLOOD FIO2 2L
[2018-10-09] MEDS: DOCUSATE SODIUM 100 MG CAPSULE PO SCH ×2 (10:49→17:15)
[2018-10-09] MEDS: METOPROLOL SUCCINATE 50 MG TAB.SR.24H PO SCH ×2 (10:49→21:15)
[2018-10-09] MEDS: FUROSEMIDE 20 MG TABLET PO SCH (10:49)
[2018-10-09] MEDS: GUAIFENESIN 600 MG TABLET.SA PO SCH ×2 (10:49→21:16)
[2018-10-09] MEDS: LISINOPRIL 10 MG TABLET PO SCH (10:49)
[2018-10-09] MEDS: FLUTICASONE NASAL SPRAY 50 MCG/SPRY 120 SPRAY/16 GM NASL SCH (10:49)
[2018-10-09] MEDS: FAMOTIDINE 20 MG TABLET PO SCH ×2 (10:49→21:15)
[2018-10-09] MEDS: NYSTATIN TOPICAL POWDER 15 GM TP SCH ×4 (10:49→17:20)
--- NOTE | 2018-10-09 16:29 | PDOC PROGRESS REPORT ---
Subjective Progress Note for:: 10/09/18 Subjective:: This is a 73 yr old female with COPD with multiple prior admission for COPD exacerbation, paroxysmal AFIb, CAD, HTN, dementia and DM 2 who was brought in by family due to worsening work of breathing. She was admitted for COPD exacerbation. She was placed on BIPAP but patient has been noncompliant with BIPAP since admission as she is uncomfortable with it and refuses to wear it. She does have waxing and waning episodes of being lethargic and agitation. This morning, she was arousable and denies acute complaints. She is refusing BIPAP. She did become more alert later and per RN, she is still refusing to wear it and apparently yelled at the nurse that she will "throw up on her if she insist that patient wears the BIPAP". Does not appear that she is confused from the hypercapnia and is refusing the BIPAP but more due to discomfort and inconvenience. Reason For Visit: ACUTE EXACERBATION OF COPD Physical Exam Vital Signs: Temp Pulse Resp BP Pulse Ox 98.6 F 85 16 117/58 L 95 10/09/18 07:56 10/09/18 08:15 10/09/18 08:15 10/09/18 07:56 10/09/18 08:15 Intake & Output 10/08/18 10/09/18 10/10/18 06:59 06:59 06:59 Intake Total 777 337 Balance 777 337 Weight 152 lb 5.431 oz 162 lb 0.636 oz General appearance: PRESENT: no acute distress, well-developed, well-nourished Head exam: PRESENT: atraumatic, normocephalic Eye exam: PRESENT: conjunctiva pink, EOMI, PERRLA. ABSENT: scleral icterus Ear exam: PRESENT: normal external ear exam Mouth exam: PRESENT: moist, tongue midline Neck exam: ABSENT: carotid bruit, JVD, lymphadenopathy, thyromegaly Respiratory exam: PRESENT: rhonchi - [id number]. ABSENT: rales, wheezes Cardiovascular exam: PRESENT: RRR. ABSENT: diastolic murmur, rubs, systolic murmur Pulses: PRESENT: normal dorsalis pedis pul GI/Abdominal exam: PRESENT: normal bowel sounds, soft. ABSENT: distended, guarding, mass, organolmegaly, rebound, tenderness Rectal exam: PRESENT: deferred Neurological exam: PRESENT: alert, awake, oriented to person, CN II-XII grossly intact. ABSENT: motor sensory deficit Results Laboratory Results: 10/09/18 04:30 10/09/18 04:30 10/08/18 10/09/18 10/09/18 19:40 04:30 04:30 WBC 5.1 RBC 2.89 L Hgb 9.3 L Hct 27.2 L MCV 94 MCH 32.1 MCHC 34.0 RDW 15.6 H Plt Count 214 Seg Neutrophils % 69.6 Lymphocytes % 13.8 Monocytes % 14.6 H Eosinophils % 1.9 Basophils % 0.1 Absolute Neutrophils 3.5 Absolute Lymphocytes 0.7 Absolute Monocytes 0.7 Absolute Eosinophils 0.1 Absolute Basophils 0.0 Carbonic Acid 1.64 H HCO3/H2CO3 Ratio 22:1 ABG pH 7.44 ABG pCO2 54.4 H ABG pO2 105.3 H ABG HCO3 36.2 H ABG O2 Saturation 97.9 ABG Base Excess 10.6 FiO2 35% Sodium 140.0 Potassium 3.4 L Chloride 97 L Carbon Dioxide 40 H* Anion Gap 3 L BUN 17 Creatinine 1.01 Est GFR ( Amer) > 60 Est GFR (Non-Af Amer) 53 L Glucose 98 Calcium 9.0 Magnesium 2.1 Total Bilirubin 0.2 AST 12 L ALT 28 Alkaline Phosphatase 54 Total Protein 4.8 L Albumin 2.7 L 10/02/18 10/03/18 10/03/18 23:14 03:20 03:20 Creatine Kinase < 20 L CK-MB (CK-2) 0.27 Troponin I 0.016 < 0.012 NT-Pro-B Natriuret Pep 836 H 10/03/18 10/03/18 10/03/18 09:15 09:15 16:33 Creatine Kinase < 20 L < 20 L CK-MB (CK-2) 0.28 Troponin I < 0.012 NT-Pro-B Natriuret Pep 10/03/18 16:33 Creatine Kinase CK-MB (CK-2) 0.30 Troponin I 0.015 NT-Pro-B Natriuret Pep Impressions: Chest X-Ray 10/02/18 20:47 IMPRESSION: Right lung consolidation. Bilateral atelectasis. Chest/Abdomen CTA 10/03/18 02:51 IMPRESSION: 1. No pulmonary embolus identified. 2. Moderate right pleural effusion with compressive atelectasis of the right lower lobe. 3. The right hilar region is stable in appearance with persistent soft tissue density. This exam was performed according to our departmental dose-optimization program, which includes automated exposure control, adjustment of the mA and/or kV according to patient size and/or use of iterative reconstruction technique. Guidance Fluoroscopy 10/04/18 00:00 IMPRESSION: SUCCESSFUL PLACEMENT OF A 5 FR DUAL LUMEN 33 CM PICC IN THE RIGHT BASILIC VEIN. Interventional Vascular Procedure 10/04/18 00:00 IMPRESSION: SUCCESSFUL PLACEMENT OF A 5 FR DUAL LUMEN 33 CM PICC IN THE RIGHT BASILIC VEIN. PICC Line Insertion 10/04/18 00:00 IMPRESSION: SUCCESSFUL PLACEMENT OF A 5 FR DUAL LUMEN 33 CM PICC IN THE RIGHT BASILIC VEIN. Head CT 10/08/18 00:00 IMPRESSION: No acute intracranial hemorrhage. Findings consistent with bilateral mastoiditis, uncertain chronicity. Assessment & Plan - Diagnosis (1) Acute and chronic respiratory failure with hypercapnia Is this a current diagnosis for this admission?: Yes Plan: Secondary to COPD exacerbation. Patient is not compliant with BIPAP. Currently saturating well on 4 lpm via NC. (2) COPD exacerbation Is this a current diagnosis for this admission?: Yes Plan: Continue steroids and breathing treatments. (3) Hypokalemia Is this a current diagnosis for this admission?: Yes Plan: Will replace with 40 meqs PO. - Time Time Spent with patient: 25-34 minutes
[2018-10-09] MEDS ORDERED: POTASSIUM CHLORIDE 10 MEQ CAPSULE.ER PO ONE (16:30)
[2018-10-09] MEDS ORDERED: POTASSIUM CHLORIDE 20 MEQ/15 ML UDCUP PO ONE (17:15)
[2018-10-09] MEDS: INSULIN REG, HUMAN 100 UNIT/ML 3 ML VIAL (PYX) SUBCUT SCH (21:14)
[2018-10-10] MEDS: HEPARIN SOD (PORCINE) 5,000 UNIT/ML 1 ML SYRINGE SUBCUT SCH ×3 (05:06→21:54)
[2018-10-10] MEDS: LEVOTHYROXINE SODIUM 0.088 MG TABLET PO SCH (05:13)
[2018-10-10 06:01] LABS: BLOOD UREA NITROGEN 17 mg/dL (7-20); CALCIUM 9.4 mg/dL (8.4-10.2); GLUCOSE 113 mg/dL (75-110); POTASSIUM 3.9 mmol/L (3.6-5.0)
[2018-10-10 06:06] LABS: CARBON DIOXIDE 36 mmol/L (22-30); CHLORIDE 102 mmol/L (98-107); SODIUM 140.7 mmol/L (137-145)
[2018-10-10 06:20] LABS: ANION GAP 3 (5-19)
[2018-10-10] MEDS: INSULIN REG, HUMAN 100 UNIT/ML 3 ML VIAL (PYX) SUBCUT SCH ×4 (07:37→21:45)
[2018-10-10] MEDS: LEVALBUTEROL HCL NEB 1.25 MG/3 ML AMPUL NEB SCH ×3 (08:14→23:42)
[2018-10-10] MEDS: IPRATROPIUM BROMIDE 0.02% NEB 0.5 MG/2.5 ML AMPUL NEB SCH ×3 (08:14→23:42)
[2018-10-10] MEDS: NYSTATIN TOPICAL POWDER 15 GM TP SCH ×3 (10:36→18:11)
[2018-10-10] MEDS: FLUTICASONE NASAL SPRAY 50 MCG/SPRY 120 SPRAY/16 GM NASL SCH (10:37)
[2018-10-10] MEDS: FAMOTIDINE 20 MG TABLET PO SCH ×2 (10:37→21:46)
[2018-10-10] MEDS: DOCUSATE SODIUM 100 MG CAPSULE PO SCH ×2 (10:37→18:09)
[2018-10-10] MEDS: LISINOPRIL 10 MG TABLET PO SCH (10:37)
[2018-10-10] MEDS: METOPROLOL SUCCINATE 50 MG TAB.SR.24H PO SCH ×2 (10:38→21:51)
[2018-10-10] MEDS: FUROSEMIDE 20 MG TABLET PO SCH (10:38)
[2018-10-10] MEDS: GUAIFENESIN 600 MG TABLET.SA PO SCH ×2 (10:38→21:46)
--- NOTE | 2018-10-10 14:53 | PDOC PROGRESS REPORT ---
Subjective Progress Note for:: 10/10/18 Subjective:: This is a 73 yr old female with COPD with multiple prior admission for COPD exacerbation, paroxysmal AFIb, CAD, HTN, dementia and DM 2 who was brought in by family due to worsening work of breathing. She was admitted for COPD exacerbation. 10/09: She was placed on BIPAP but patient has been noncompliant with BIPAP since admission as she is uncomfortable with it and refuses to wear it. She does have waxing and waning episodes of being lethargic and agitation. This morning, she was arousable and denies acute complaints. She is refusing BIPAP. She did become more alert later and per RN, she is still refusing to wear it and apparently yelled at the nurse that she will "throw up on her if she insist that patient wears the BIPAP". Does not appear that she is confused from the hypercapnia and is refusing the BIPAP but more due to discomfort and inconvenience. 10/10: Patient continues to be non-compliant to BIPAP. This morning, she refused her medications and a vital signs check. Upon encounter, she is oriented to person and knows she is in a hospital. Discussed with patient about using the BIPAP and says she really does not want to use it because it's uncomfortable. When told, she is at risk for intubation if she retains CO2, she just stares at this provider. She lives with her son her in [facility] ([phone]) who has been contacted multiple times with no response (full voicemail and unable to left a message). Catherine ([facility] in [place] was also contacted yesterday with no response). Able to finally get hold of Catherine today who says she was not made aware that patient has been admitted to [facility]. Discussed in length and updated on patient sta tus, she says patient is a Full Code and prefers for her to be intubated if necessary if patient remains non-compliant. She says she just bought a house in [place] and is planning to have patient live with her in [place] eventually. Reason For Visit: ACUTE EXACERBATION OF COPD Physical Exam Vital Signs: Temp Pulse Resp BP Pulse Ox 99.6 F 103 H 22 H 122/66 100 10/10/18 11:51 10/10/18 11:51 10/10/18 11:51 10/10/18 11:51 10/10/18 11:51 Intake & Output 10/09/18 10/10/18 10/11/18 06:59 06:59 06:59 Intake Total 337 252 Balance 337 252 Weight 162 lb 0.636 oz 160 lb 11.472 oz General appearance: PRESENT: no acute distress, well-developed, well-nourished Head exam: PRESENT: atraumatic, normocephalic Eye exam: PRESENT: conjunctiva pink, EOMI, PERRLA. ABSENT: scleral icterus Ear exam: PRESENT: normal external ear exam Mouth exam: PRESENT: moist, tongue midline Neck exam: ABSENT: carotid bruit, JVD, lymphadenopathy, thyromegaly Respiratory exam: PRESENT: rhonchi, wheezes - mild wheezes. ABSENT: rales Cardiovascular exam: PRESENT: RRR. ABSENT: diastolic murmur, rubs, systolic murmur Pulses: PRESENT: normal dorsalis pedis pul GI/Abdominal exam: PRESENT: normal bowel sounds, soft. ABSENT: distended, guarding, mass, organolmegaly, rebound, tenderness Rectal exam: PRESENT: deferred Neurological exam: PRESENT: alert, awake, oriented to person, oriented to place, CN II-XII grossly intact. ABSENT: motor sensory deficit Results Laboratory Results: 10/09/18 04:30 10/10/18 05:15 10/09/18 10/10/18 04:30 05:15 Sodium 140.7 Potassium 3.9 Chloride 102 Carbon Dioxide 36 H Anion Gap 3 L BUN 17 Creatinine 0.94 Est GFR ( Amer) > 60 Est GFR (Non-Af Amer) 58 L Glucose 113 H Calcium 9.4 TSH 0.02 L 10/02/18 10/03/18 10/03/18 23:14 03:20 03:20 Creatine Kinase < 20 L CK-MB (CK-2) 0.27 Troponin I 0.016 < 0.012 NT-Pro-B Natriuret Pep 836 H 10/03/18 10/03/18 10/03/18 09:15 09:15 16:33 Creatine Kinase < 20 L < 20 L CK-MB (CK-2) 0.28 Troponin I < 0.012 NT-Pro-B Natriuret Pep 10/03/18 16:33 Creatine Kinase CK-MB (CK-2) 0.30 Troponin I 0.015 NT-Pro-B Natriuret Pep Impressions: Chest X-Ray 10/02/18 20:47 IMPRESSION: Right lung consolidation. Bilateral atelectasis. Chest/Abdomen CTA 10/03/18 02:51 IMPRESSION: 1. No pulmonary embolus identified. 2. Moderate right pleural effusion with compressive atelectasis of the right lower lobe. 3. The right hilar region is stable in appearance with persistent soft tissue density. This exam was performed according to our departmental dose-optimization program, which includes automated exposure control, adjustment of the mA and/or kV according to patient size and/or use of iterative reconstruction technique. Guidance Fluoroscopy 10/04/18 00:00 IMPRESSION: SUCCESSFUL PLACEMENT OF A 5 FR DUAL LUMEN 33 CM PICC IN THE RIGHT BASILIC VEIN. Interventional Vascular Procedure 10/04/18 00:00 IMPRESSION: SUCCESSFUL PLACEMENT OF A 5 FR DUAL LUMEN 33 CM PICC IN THE RIGHT BASILIC VEIN. PICC Line Insertion 10/04/18 00:00 IMPRESSION: SUCCESSFUL PLACEMENT OF A 5 FR DUAL LUMEN 33 CM PICC IN THE RIGHT BASILIC VEIN. Head CT 10/08/18 00:00 IMPRESSION: No acute intracranial hemorrhage. Findings consistent with bilateral mastoiditis, uncertain chronicity. Assessment & Plan - Diagnosis (1) Acute and chronic respiratory failure with hypercapnia Is this a current diagnosis for this admission?: Yes Plan: Secondary to COPD exacerbation. Patient is not compliant with BIPAP. Currently saturating well on 4 lpm via NC. (2) COPD exacerbation Is this a current diagnosis for this admission?: Yes Plan: Continue steroids and breathing treatments. (3) Hypokalemia Is this a current diagnosis for this admission?: Yes Plan: Resolved. - Time Time Spent with patient: 35 or more minutes
[2018-10-10] MEDS: METHYLPREDNISOLONE INJ 40 MG/1 ML SDV IV SCH ×2 (15:50→21:54)
[2018-10-11] MEDS: LEVOTHYROXINE SODIUM 0.088 MG TABLET PO SCH (05:11)
[2018-10-11] MEDS: HEPARIN SOD (PORCINE) 5,000 UNIT/ML 1 ML SYRINGE SUBCUT SCH ×3 (05:11→21:15)
[2018-10-11] MEDS: INSULIN REG, HUMAN 100 UNIT/ML 3 ML VIAL (PYX) SUBCUT SCH ×4 (07:54→22:37)
[2018-10-11] MEDS: IPRATROPIUM BROMIDE 0.02% NEB 0.5 MG/2.5 ML AMPUL NEB SCH ×3 (08:08→23:49)
[2018-10-11] MEDS: LEVALBUTEROL HCL NEB 1.25 MG/3 ML AMPUL NEB SCH ×3 (08:08→23:49)
[2018-10-11] MEDS: DOCUSATE SODIUM 100 MG CAPSULE PO SCH ×2 (09:37→17:16)
[2018-10-11] MEDS: METHYLPREDNISOLONE INJ 40 MG/1 ML SDV IV SCH (09:41)
[2018-10-11] MEDS: METOPROLOL SUCCINATE 50 MG TAB.SR.24H PO SCH ×2 (09:41→21:15)
[2018-10-11] MEDS: FLUTICASONE NASAL SPRAY 50 MCG/SPRY 120 SPRAY/16 GM NASL SCH (09:41)
[2018-10-11] MEDS: LISINOPRIL 10 MG TABLET PO SCH (09:41)
[2018-10-11] MEDS: GUAIFENESIN 600 MG TABLET.SA PO SCH ×2 (09:41→21:15)
[2018-10-11] MEDS: FAMOTIDINE 20 MG TABLET PO SCH ×2 (09:41→21:15)
[2018-10-11] MEDS: FUROSEMIDE 20 MG TABLET PO SCH (09:44)
[2018-10-11 10:51] LABS: ABSOLUTE LYMPHOCYTES (AUTO) 0.5 10^3/uL (0.5-4.7); ABSOLUTE MONOCYTES (AUTO) 0.9 10^3/uL (0.1-1.4); BASOPHILS % (AUTO) 0.3 % (0-2); HEMATOCRIT 26.9 % (36.0-47.0); HEMOGLOBIN 9.2 g/dL (12.0-15.5); LYMPHOCYTES % (AUTO) 6.1 % (13-45); MEAN CORPUSCULAR HEMOGLOBIN 32.2 pg (27.0-33.4); MEAN CORPUSCULAR HGB CONC 34.2 g/dL (32.0-36.0); MEAN CORPUSCULAR VOLUME 94 fl (80-97); MONOCYTES % (AUTO) 12.5 % (3-13); PLATELET COUNT 183 10^3/uL (150-450); RED BLOOD COUNT 2.86 10^6/uL (3.72-5.28); RED CELL DISTRIBUTION WIDTH 15.3 % (11.5-14.0); SEGMENTED NEUTROPHILS % (AUTO) 81.1 % (42-78); TOTAL CELLS COUNTED % (AUTO) 100 %; WHITE BLOOD COUNT 7.5 10^3/uL (4.0-10.5)
[2018-10-11 11:14] LABS: ANION GAP 7 (5-19); BLOOD UREA NITROGEN 30 mg/dL (7-20); CALCIUM 9.1 mg/dL (8.4-10.2); CARBON DIOXIDE 35 mmol/L (22-30); CHLORIDE 98 mmol/L (98-107); GLUCOSE 229 mg/dL (75-110); POTASSIUM 3.7 mmol/L (3.6-5.0); SODIUM 140.1 mmol/L (137-145)
--- NOTE | 2018-10-11 15:16 | PDOC PROGRESS REPORT ---
Subjective Progress Note for:: 10/11/18 Subjective:: This is a 73 yr old female with COPD with multiple prior admission for COPD exacerbation, paroxysmal AFIb, CAD, HTN, dementia and DM 2 who was brought in by family due to worsening work of breathing. She was admitted for COPD exacerbation. 10/09: She was placed on BIPAP but patient has been noncompliant with BIPAP since admission as she is uncomfortable with it and refuses to wear it. She does have waxing and waning episodes of being lethargic and agitation. This morning, she was arousable and denies acute complaints. She is refusing BIPAP. She did become more alert later and per RN, she is still refusing to wear it and apparently yelled at the nurse that she will "throw up on her if she insist that patient wears the BIPAP". Does not appear that she is confused from the hypercapnia and is refusing the BIPAP but more due to discomfort and inconvenience. 10/10: Patient continues to be non-compliant to BIPAP. This morning, she refused her medications and a vital signs check. Upon encounter, she is oriented to person and knows she is in a hospital. Discussed with patient about using the BIPAP and says she really does not want to use it because it's uncomfortable. When told, she is at risk for intubation if she retains CO2, she just stares at this provider. She lives with her son her in [facility] ([phone]) who has been contacted multiple times with no response (full voicemail and unable to left a message). Catherine ([facility] in [place] was also contacted yesterday with no response). Able to finally get hold of Catherine today who says she was not made aware that patient has been admitted to [facility]. Discussed in length and updated on patient sta tus, she says patient is a Full Code and prefers for her to be intubated if necessary if patient remains non-compliant. She says she just bought a house in [place] and is planning to have patient live with her in [place] eventually. 10/11: No acute event overnight. She continues to refuse BIPAP use but patient is more awake and alert today and is actually very conversant. She is oriented to person but thought she is a gas station. Breath sounds have significantly improved. She says her son is not at home as he works the whole day but that she has a caregiver who takes care of her well at home. If she continues to do better, anticipate discharge to home in the next 24-48 hrs. Reason For Visit: ACUTE EXACERBATION OF COPD Physical Exam Vital Signs: Temp Pulse Resp BP Pulse Ox 97.9 F 100 18 113/57 L 93 10/11/18 08:36 10/11/18 14:00 10/11/18 08:36 10/11/18 08:36 10/11/18 08:36 Intake & Output 10/10/18 10/11/18 10/12/18 06:59 06:59 06:59 Intake Total 252 600 Balance 252 600 Weight 160 lb 11.472 oz 152 lb 5.431 oz General appearance: PRESENT: no acute distress, well-developed, well-nourished Head exam: PRESENT: atraumatic, normocephalic Eye exam: PRESENT: conjunctiva pink, EOMI, PERRLA. ABSENT: scleral icterus Ear exam: PRESENT: normal external ear exam Mouth exam: PRESENT: moist, tongue midline Neck exam: ABSENT: carotid bruit, JVD, lymphadenopathy, thyromegaly Respiratory exam: PRESENT: rhonchi. ABSENT: rales, wheezes Cardiovascular exam: PRESENT: RRR. ABSENT: diastolic murmur, rubs, systolic murmur Pulses: PRESENT: normal dorsalis pedis pul GI/Abdominal exam: PRESENT: normal bowel sounds, soft. ABSENT: distended, guarding, mass, organolmegaly, rebound, tenderness Rectal exam: PRESENT: deferred Neurological exam: PRESENT: alert, awake, oriented to person, CN II-XII grossly intact. ABSENT: oriented to place, oriented to time, motor sensory deficit Results Laboratory Results: 10/11/18 10:38 10/11/18 10:38 10/11/18 10/11/18 10:38 10:38 WBC 7.5 RBC 2.86 L Hgb 9.2 L Hct 26.9 L MCV 94 MCH 32.2 MCHC 34.2 RDW 15.3 H Plt Count 183 Seg Neutrophils % 81.1 H Lymphocytes % 6.1 L Monocytes % 12.5 Eosinophils % 0.0 Basophils % 0.3 Absolute Neutrophils 6.0 Absolute Lymphocytes 0.5 Absolute Monocytes 0.9 Absolute Eosinophils 0.0 Absolute Basophils 0.0 Sodium 140.1 Potassium 3.7 Chloride 98 Carbon Dioxide 35 H Anion Gap 7 BUN 30 H Creatinine 0.96 Est GFR ( Amer) > 60 Est GFR (Non-Af Amer) 57 L Glucose 229 H Calcium 9.1 10/02/18 10/03/18 10/03/18 23:14 03:20 03:20 Creatine Kinase < 20 L CK-MB (CK-2) 0.27 Troponin I 0.016 < 0.012 NT-Pro-B Natriuret Pep 836 H 10/03/18 10/03/18 10/03/18 09:15 09:15 16:33 Creatine Kinase < 20 L < 20 L CK-MB (CK-2) 0.28 Troponin I < 0.012 NT-Pro-B Natriuret Pep 10/03/18 16:33 Creatine Kinase CK-MB (CK-2) 0.30 Troponin I 0.015 NT-Pro-B Natriuret Pep Impressions: Chest X-Ray 10/02/18 20:47 IMPRESSION: Right lung consolidation. Bilateral atelectasis. Chest/Abdomen CTA 10/03/18 02:51 IMPRESSION: 1. No pulmonary embolus identified. 2. Moderate right pleural effusion with compressive atelectasis of the right lower lobe. 3. The right hilar region is stable in appearance with persistent soft tissue density. This exam was performed according to our departmental dose-optimization program, which includes automated exposure control, adjustment of the mA and/or kV according to patient size and/or use of iterative reconstruction technique. Guidance Fluoroscopy 10/04/18 00:00 IMPRESSION: SUCCESSFUL PLACEMENT OF A 5 FR DUAL LUMEN 33 CM PICC IN THE RIGHT BASILIC VEIN. Interventional Vascular Procedure 10/04/18 00:00 IMPRESSION: SUCCESSFUL PLACEMENT OF A 5 FR DUAL LUMEN 33 CM PICC IN THE RIGHT B ASILIC VEIN. PICC Line Insertion 10/04/18 00:00 IMPRESSION: SUCCESSFUL PLACEMENT OF A 5 FR DUAL LUMEN 33 CM PICC IN THE RIGHT BASILIC VEIN. Head CT 10/08/18 00:00 IMPRESSION: No acute intracranial hemorrhage. Findings consistent with bilateral mastoiditis, uncertain chronicity. Assessment & Plan - Diagnosis (1) Acute and chronic respiratory failure with hypercapnia Is this a current diagnosis for this admission?: Yes Plan: Secondary to COPD exacerbation. Patient is not compliant with BIPAP. Currently saturating well on 4 lpm via NC. 10/11: Clinically improved. She is more awake and conversant today. Breath sounds have significantly improve with only very minimal wheezing. (2) COPD exacerbation Is this a current diagnosis for this admission?: Yes Plan: Continue steroids and breathing treatments. 10/11: Switch solumedrol to prednisone. (3) Hypokalemia Is this a current diagnosis for this admission?: Yes Plan: Resolved. (4) Acute delirium Is this a current diagnosis for this admission?: Yes Plan: She does have sundowning episodes from her dementia. - Time Time Spent with patient: 25-34 minutes
[2018-10-11] MEDS: PREDNISONE 20 MG TABLET PO SCH (17:16)
[2018-10-12] MEDS: HEPARIN SOD (PORCINE) 5,000 UNIT/ML 1 ML SYRINGE SUBCUT SCH (05:38)
[2018-10-12] MEDS: LEVOTHYROXINE SODIUM 0.088 MG TABLET PO SCH (05:38)
[2018-10-12] MEDS: LEVALBUTEROL HCL NEB 1.25 MG/3 ML AMPUL NEB SCH (07:57)
[2018-10-12] MEDS: IPRATROPIUM BROMIDE 0.02% NEB 0.5 MG/2.5 ML AMPUL NEB SCH (07:57)
[2018-10-12] MEDS: FUROSEMIDE 20 MG TABLET PO SCH (08:11)
[2018-10-12] MEDS: INSULIN REG, HUMAN 100 UNIT/ML 3 ML VIAL (PYX) SUBCUT SCH ×2 (08:11→11:06)
[2018-10-12] MEDS: LISINOPRIL 10 MG TABLET PO SCH (10:18)
[2018-10-12] MEDS: GUAIFENESIN 600 MG TABLET.SA PO SCH (10:18)
[2018-10-12] MEDS: FAMOTIDINE 20 MG TABLET PO SCH (10:18)
[2018-10-12] MEDS: FLUTICASONE NASAL SPRAY 50 MCG/SPRY 120 SPRAY/16 GM NASL SCH (10:18)
[2018-10-12] MEDS: METOPROLOL SUCCINATE 50 MG TAB.SR.24H PO SCH (10:18)
[2018-10-12] MEDS: DOCUSATE SODIUM 100 MG CAPSULE PO SCH (10:19)
[2018-10-12] MEDS: PREDNISONE 20 MG TABLET PO SCH (10:23)
[2018-10-12 12:06] VITALS: BP 102/60
--- NOTE | 2018-10-12 16:56 | PDOC DISCHARGE SUMMARY ---
General - Admit/Disc Date/PCP Admission Date/Primary Care Provider: 10/03/18 02:58 BAKARI VELARDE MD Discharge Date: 10/12/18 - Discharge Diagnosis (1) Acute and chronic respiratory failure with hypercapnia Is this a current diagnosis for this admission?: Yes (2) COPD exacerbation Is this a current diagnosis for this admission?: Yes (3) Hypokalemia Is this a current diagnosis for this admission?: Yes (4) Acute delirium Is this a current diagnosis for this admission?: Yes - Additional Information Resuscitation Status: Full Code Discharge Diet: Cardiac Discharge Activity: Activity As Tolerated Prescriptions: Fluticasone/Salmeterol [Advair 250-50 Diskus 14 Dose/Diskus] 1 inh IH Q12H #1 inhaler Ipratropium/Albuterol Sulfate [Duoneb 3 ml Ampul] 3 ml NEB [id number] PRN #30 vial.neb PRN Reason: for wheezing or SOB Levothyroxine Sodium [Synthroid 0.05 mg Tablet] 0.05 mg PO QAM #30 tablet Prednisone [Deltasone 20 mg Tablet] 20 mg PO BID 5 Days #10 tablet Tiotropium [place] [Spiriva Handihaler 5 Cap/Kit (18 Mcg/Cap)] 1 cap IH DAILY #30 capsule Home Medications: Furosemide [Lasix 20 mg Tablet] 20 mg PO QAM 10/03/18 Lisinopril [Zestril] 5 mg PO DAILY 10/03/18 Metoprolol Succinate [Toprol Xl 25 mg Tab.sr] 25 mg PO DAILY 10/03/18 Nystatin 1 applic TOP BID 10/03/18 Fluticasone/Salmeterol [Advair 250-50 Diskus 14 Dose/Diskus] 1 inh IH Q12H #1 inhaler 10/12/18 Ipratropium/Albuterol Sulfate [Duoneb 3 ml Ampul] 3 ml NEB [id number] PRN #30 vial.neb 10/12/18 Levothyroxine Sodium [Synthroid 0.05 mg Tablet] 0.05 mg PO QAM #30 tablet 10/12 Prednisone [Deltasone 20 mg Tablet] 20 mg PO BID 5 Days #10 tablet 10/12/18 Tiotropium [place] [Spiriva Handihaler 5 Cap/Kit (18 Mcg/Cap)] 1 cap IH DAILY #30 capsule 10/12/18 History of Present Illness History of Present Illness: Admitting hospitalist's H&P: TRENTON MCCOY is a 73 year old female who presented to the emergency room at her family's insistence with a several hour history of slightly increased work of breathing. She admits that though she is not feeling dyspneic she has been feeling like it is a little bit harder for her to get her breath than usual. She further admits that this symptom is one that she has had on numerous prior occasions as she developed acute exacerbations of her COPD. She denies other associated symptoms. She has not identified any aggravating or ameliorating factors for her increased work of breathing. In the emergency room she was found to have acute on chronic respiratory failure with hypoxia and hypercapnia without other significant abnormalities in her evaluation. She was subsequently admitted to the hospital for further evaluation and treatment of her early acute exacerbation of COPD. Hospital Course Hospital Course: This is a 73 yr old female with COPD with multiple prior admission for COPD exacerbation, paroxysmal AFIb, CAD, HTN, dementia and DM 2 who was brought in by family due to worsening work of breathing. She was admitted for COPD e xacerbation. 10/09: She was placed on BIPAP but patient has been noncompliant with BIPAP since admission as she is uncomfortable with it and refuses to wear it. She does have waxing and waning episodes of being lethargic and agitation consistent with sundowning from her dementia. This morning, she was arousable and denies acute complaints. She is refusing BIPAP. She did become more alert later and per RN, she is still refusing to wear it and apparently yelled at the nurse that she will "throw up on her if she insist that patient wears the BIPAP". Does not appear that she is confused from the hypercapnia and is refusing the BIPAP but more of due to discomfort and inconvenience to herself. 10/10: Patient continues to be non-compliant to BIPAP. This morning, she refused her medications and a vital signs check. Upon encounter, she is oriented to person and knows she is in a hospital. Discussed with patient about using the BIPAP and says she really does not want to use it because it's uncomfortable. When told, she is at risk for intubation if she retains CO2, she just stares at this provider. She lives with her son her in [place] ([phone]) who has been contacted multiple times with no response (full voicemail and unable to left a message). Catherine ([facility] in [place] was also contacted yesterday with no response). Able to finally get hold of Catherine today who says she was not made aware that patient has been admitted to [facility]. Discussed in length and updated on patient sta tus, she says patient is a Full Code and prefers for her to be intubated if necessary if patient remains non-compliant. She says she just bought a house in [place] and is planning to have patient live with her in [place] eventually and does not want for her to go to a facility. 10/11: No acute event overnight. She continues to refuse BIPAP use but patient is more awake and alert today and is actually very conversant. She is oriented to person but thought she is a gas station. Breath sounds have significantly improved. She says her son is not at home as he works the whole day but that she has a caregiver who takes care of her well at home. If she continues to do better, anticipate discharge to home in the next 24-48 hrs. 10/12: Patient has shown consistent clinical improvement in the past 2 days. Her breath sounds have remained clear and she has remained awake, coherent and oriented x 2. She is at her baseline. She does yell at the nursing staff from time to time but calms down when redirected or pacified. She is not on a LABA/ICS inhaler or an anticholinergic inhaler for her COPD. She will be started on Advair, Spriva and will also be given 5 more days of prednisone. She will continue prn duoneb at home. Her Hba1c has continue to trend down with the recent one at 5.5. She did have sugars in the 80s at night. With her advanced age, aggressive glycemic control is not recommended. Will discontinue metformin. Recommend continuing diabetic diet and repeat A1c with PCP in 3 months. Her TSH also came back lower and synthroid was decreased to 0.05 mg daily. Physical Exam Vital Signs: Temp Pulse Resp BP Pulse Ox 97.4 F 85 20 102/60 97 10/12/18 12:10/12/18 12:10/12/18 12:01 10/12/18 12:01 10/12/18 12:01 Intake & Output 10/11/18 10/12/18 10/13/18 06:59 06:59 06:59 Intake Total 600 920 Balance 600 920 Weight 152 lb 5.431 oz 164 lb 3.91 oz General appearance: PRESENT: no acute distress, well-developed, well-nourished Head exam: PRESENT: atraumatic, normocephalic Eye exam: PRESENT: conjunctiva pink, EOMI, PERRLA. ABSENT: scleral icterus Ear exam: PRESENT: normal external ear exam Mouth exam: PRESENT: moist, tongue midline Neck exam: ABSENT: carotid bruit, JVD, lymphadenopathy, thyromegaly Respiratory exam: PRESENT: clear to auscultation jeff. ABSENT: rales, rhonchi, wheezes Cardiovascular exam: PRESENT: RRR. ABSENT: diastolic murmur, rubs, systolic mur mur Pulses: PRESENT: normal dorsalis pedis pul GI/Abdominal exam: PRESENT: normal bowel sounds, soft. ABSENT: distended, guarding, mass, organolmegaly, rebound, tenderness Rectal exam: PRESENT: deferred Neurological exam: PRESENT: alert, awake, oriented to person, oriented to place, CN II-XII grossly intact. ABSENT: oriented to time, oriented to situation, motor sensory deficit Results Laboratory Results: 10/11/18 10:38 10/11/18 10:38 10/02/18 10/03/18 10/03/18 23:14 03:20 03:20 Creatine Kinase < 20 L CK-MB (CK-2) 0.27 Troponin I 0.016 < 0.012 NT-Pro-B Natriuret Pep 836 H 10/03/18 10/03/18 10/03/18 09:15 09:15 16:33 Creatine Kinase < 20 L < 20 L CK-MB (CK-2) 0.28 Troponin I < 0.012 NT-Pro-B Natriuret Pep 10/03/18 16:33 Creatine Kinase CK-MB (CK-2) 0.30 Troponin I 0.015 NT-Pro-B Natriuret Pep Impressions: Chest X-Ray 10/02/18 20:47 IMPRESSION: Right lung consolidation. Bilateral atelectasis. Chest/Abdomen CTA 10/03/18 02:51 IMPRESSION: 1. No pulmonary embolus identified. 2. Moderate right pleural effusion with compressive atelectasis of the right lower lobe. 3. The right hilar region is stable in appearance with persistent soft tissue density. This exam was performed according to our departmental dose-optimization program, which includes automated exposure control, adjustment of the mA and/or kV according to patient size and/or use of iterative reconstruction technique. Guidance Fluoroscopy 10/04/18 00:00 IMPRESSION: SUCCESSFUL PLACEMENT OF A 5 FR DUAL LUMEN 33 CM PICC IN THE RIGHT BASILIC VEIN. Interventional Vascular Procedure 10/04/18 00:00 IMPRESSION: SUCCESSFUL PLACEMENT OF A 5 FR DUAL LUMEN 33 CM PICC IN THE RIGHT BASILIC VEIN. PICC Line Insertion 10/04/18 00:00 IMPRESSION: SUCCESSFUL PLACEMENT OF A 5 FR DUAL LUMEN 33 CM PICC IN THE RIGHT BASILIC VEIN. Head CT 10/08/18 00:00 IMPRESSION: No acute intracranial hemorrhage. Findings consistent with bilateral mastoiditis, uncertain chronicity. Qualifiers - * PATIENT BEING DISCHARGED WITH ANY OF THE FOLLOWING DIAGNOSIS: No
== END 2018-10-12 12:01 | disposition home health service (06) | DRG 189 ==
LOC: ER 20:05 → EH 10-03 02:58 → 4N 10-03 06:32
PROVIDERS: ADMIT Emergency Medicine; ATTEND Emergency Medicine
PROC: 30233N1 Transfusion of Nonautologous Red Blood Cells into Peripheral Vein, Percutaneous Approach (ICD-10-PCS; principal; 2018-10-04)
PROC: 02HV33Z Insertion of Infusion Device into Superior Vena Cava, Percutaneous Approach (ICD-10-PCS; 2018-10-04)
PROC: B518YZA Fluoroscopy of Superior Vena Cava using Other Contrast, Guidance (ICD-10-PCS; 2018-10-04)
PROC: B548ZZA Ultrasonography of Superior Vena Cava, Guidance (ICD-10-PCS; 2018-10-04)
DX: J96.22 Acute and chronic respiratory failure with hypercapnia (principal); C34.90 Malignant neoplasm of unspecified part of unspecified bronchus or lung; C79.31 Secondary malignant neoplasm of brain; J44.1 Chronic obstructive pulmonary disease with (acute) exacerbation; J96.21 Acute and chronic respiratory failure with hypoxia; D53.9 Nutritional anemia, unspecified; I50.9 Heart failure, unspecified; E87.6 Hypokalemia; I11.0 Hypertensive heart disease with heart failure; E03.9 Hypothyroidism, unspecified; I48.91 Unspecified atrial fibrillation; E11.36 Type 2 diabetes mellitus with diabetic cataract; I25.10 Atherosclerotic heart disease of native coronary artery without angina pectoris; K21.9 Gastro-esophageal reflux disease without esophagitis; F03.90 Unspecified dementia, unspecified severity, without behavioral disturbance, psychotic disturbance, mood disturbance, and anxiety; I25.2 Old myocardial infarction; Z87.891 Personal history of nicotine dependence; Z79.2 Long term (current) use of antibiotics; Z79.84 Long term (current) use of oral hypoglycemic drugs; Z79.51 Long term (current) use of inhaled steroids; Z79.52 Long term (current) use of systemic steroids; Z79.899 Other long term (current) drug therapy
CPT/HCPCS: 36415; 36430; 36569; 36600; 70450; 71045; 71275; 76937; 77001; 80048; 80053; 82550; 82553; 82803; 82962; 83036; 83605; 83735; 83880; 84443; 84484; 85025; 86850; 86900; 86901; 86920; 87040; 93005; 93010; 94640; 94660; 96365; 96368; 96375; 99285; J1642; J1644; J1815; J1956; J2060; J2920; J2930; J3360; J3475; J3490; J7512; P9016

== ENCOUNTER 2018-10-22 19:59 | Emergency (ER) | payer MEDICARE, OTHER ==
[2018-10-22 21:19] LABS: INTERNATIONAL RATION (INR) 0.83; PROTHROMBIN TIME 11.9 SEC (11.4-15.4)
[2018-10-22 21:26] LABS: ABSOLUTE EOSINOPHILS # (AUTO) 0.3 10^3/uL (0.0-0.6); ABSOLUTE LYMPHOCYTES (AUTO) 0.7 10^3/uL (0.5-4.7); ABSOLUTE MONOCYTES (AUTO) 0.7 10^3/uL (0.1-1.4); ABSOLUTE NEUT (AUTO) 9.3 10^3/uL (1.7-8.2); BASOPHILS % (AUTO) 0.2 % (0-2); EOSINOPHILS % (AUTO) 2.7 % (0-6); HEMATOCRIT 29.3 % (36.0-47.0); HEMOGLOBIN 9.8 g/dL (12.0-15.5); LYMPHOCYTES % (AUTO) 6.7 % (13-45); MEAN CORPUSCULAR HGB CONC 33.4 g/dL (32.0-36.0); MEAN CORPUSCULAR VOLUME 96 fl (80-97); MONOCYTES % (AUTO) 6.4 % (3-13); PLATELET COUNT 225 10^3/uL (150-450); RED BLOOD COUNT 3.06 10^6/uL (3.72-5.28); RED CELL DISTRIBUTION WIDTH 15.8 % (11.5-14.0); TOTAL CELLS COUNTED % (AUTO) 100 %
--- NOTE | 2018-10-22 21:33 | RADIOLOGY REPORT (SQ) ---
XR CHEST 1 VIEW EXAM DATE: 10/22/2018 20:25 HISTORY: Shortness of breath. COMPARISON: 10/02/2018 FINDINGS: There is prominence of the right hilum, unchanged. No consolidation, pleural effusion, or pneumothorax is seen. There are no acute bony findings. IMPRESSION: Right hilar prominence which is unchanged. This may represent prominent vasculature, adenopathy, or consolidation.
[2018-10-22 21:34] LABS: ALANINE AMINOTRANSFERASE 31 U/L (9-52); ALKALINE PHOSPHATASE 86 U/L (38-126); ANION GAP 5 (5-19); ASPARTATE AMINO TRANSFERASE 18 U/L (14-36); BLOOD UREA NITROGEN 35 mg/dL (7-20); CALCIUM 9.2 mg/dL (8.4-10.2); CARBON DIOXIDE 32 mmol/L (22-30); CHLORIDE 103 mmol/L (98-107); GLUCOSE 193 mg/dL (75-110); POTASSIUM 4.6 mmol/L (3.6-5.0); SODIUM 139.8 mmol/L (137-145); TOTAL PROTEIN 5.4 g/dL (6.3-8.2)
[2018-10-22 21:38] LABS: BILIRUBIN,TOTAL < 0.1 mg/dL (0.2-1.3); CREATINE KINASE < 20 U/L (30-135)
[2018-10-22 21:45] LABS: CREATINE KINASE MB 0.49 ng/mL (<4.55); TROPONIN I 0.025 ng/mL
[2018-10-22] MEDS ORDERED: IPRATROPIUM/ALBUTEROL 0.5-2.5 MG/3 ML AMPUL NEB ONE (22:53)
--- NOTE | 2018-10-22 22:53 | ER Document Report ---
ED General - General Chief Complaint: Leg Pain Stated Complaint: LEG PAIN,EAR PAIN Time Seen by Provider: 10/22/18 21:27 Primary Care Provider: BAKARI VELARDE MD [Primary Care Provider] - Follow up as needed Cannot obtain history due to: Dementia Notes: Patient is a 73-year-old female with past medical history of COPD with oxygen dependency, dementia, frequent visits to the emergency department, presents by EMS due to concerns of leg pain and difficulty walking. Apparently in triage she also complained of vaginal pain. The patient does have progressive dementia, has become more demented over the past several months since I first began seeing her. She currently denies any symptoms at the time of my assessment. She states her main concern is that she is not able to walk although when I remind her that she does not normally walk she states "oh yeah I forgot". She denies any chest pain, shortness of breath, fever or constitutional symptoms. No family available to discuss care of the patient. History of subsequent limited secondary to the absence of any family members. TRAVEL OUTSIDE OF THE [place] IN LAST 30 DAYS: No - Related Data Allergies/Adverse Reactions: azithromycin Allergy (Verified 10/02/18 20:37) cephalexin Allergy (Verified 10/02/18 20:37) Penicillins Allergy (Verified 10/02/18 20:37) amoxicillin [Amoxicillin] Adverse Reaction (Verified 10/02/18 20:37) visual hallucinations erythromycin base [Erythromycin Base] Adverse Reaction (Verified 10/02/18 20:37) visual hallucinations Potassium Clavulanate * [From Augmentin] Adverse Reaction (Verified 10/02/18 20:37) visual hallucinations Past Medical History - General Information source: Patient Cannot obtain history due to: Dementia - Social History Smoking Status: Former Smoker Chew tobacco use (# tins/day): No Frequency of alcohol use: None Drug Abuse: None Lives with: Family Family History: COPD, Malignancy - Lung cancer Patient has suicidal ideation: No Patient has homicidal ideation: No - Past Medical History Cardiac Medical History: Reports: Hx Atrial Fibrillation, Hx Congestive Heart Failure, Hx Coronary Artery Disease, Hx Heart Attack, Hx Hypertension Denies: Hx DVT, Hx Hypercholesterolemia, Hx Pulmonary Embolism Pulmonary Medical History: Reports: Hx Asthma, Hx Bronchitis, Hx COPD, Hx Pneumonia, Hx Respiratory Failure - Chronic respiratory failure Denies: Hx Sleep Apnea, Hx Tuberculosis Neurological Medical History: Denies: Hx Seizures Endocrine Medical History: Reports: Hx Diabetes Mellitus Type 2, Hx Hypothyroidism. 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 Denies: Hx Cirrhosis, Hx Hepatitis, Hx Ulcer Musculoskeletal Medical History: Reports Hx Arthritis, Reports Hx Gout, Denies Hx Multiple Sclerosis, Reports Hx Musculoskeletal Deformity, Reports Hx Musculoskeletal Trauma Skin Medical History: Denies Hx Eczema, Denies Hx Psoriasis Psychiatric Medical History: Reports: Hx Dementia, Hx Depression Denies: Hx Bipolar Disorder, Hx Schizophrenia Infectious Medical History: Reports: Hx C-Diff. Denies: Hx Hepatitis Past Surgical History: Reports: Hx Cholecystectomy, Hx Orthopedic Surgery - Foot surgery, Other - cataract bilateral - Immunizations Immunizations up to date: Yes Hx Diphtheria, Pertussis, Tetanus Vaccination: Yes Hx Pneumococcal Vaccination: 08/30/12 Review of Systems - Review of Systems Notes: Constitutional: Negative for fever. HENT: Negative for sore throat. Eyes: Negative for visual changes. Cardiovascular: Negative for chest pain. Respiratory: Negative for shortness of breath. Gastrointestinal: Negative for abdominal pain, vomiting or diarrhea. Genitourinary: Negative for dysuria. Musculoskeletal: Positive for bilateral lower extremities Skin: Negative for rash. Neurological: Negative for headaches, weakness or numbness. 10 point ROS negative except as marked above and in HPI. Physical Exam - Vital signs Vitals: Temp Resp Pulse Ox 98.1 F 9 L 99 10/22/18 20:05 10/22/18 20:05 10/22/18 20:05 Interpretation: Normal Notes: PHYSICAL EXAMINATION: GENERAL: Resting comfortably. Somewhat difficult awake initially but does wake up after several times. HEAD: Atraumatic, normocephalic. EYES: Pupils equal round and reactive to light, extraocular movements intact, sclera anicteric, conjunctiva are normal. ENT: nares patent, oropharynx clear without exudates. Mildly dry mucous membranes. NECK: Normal range of motion, supple without lymphadenopathy LUNGS: Breath sounds clear to auscultation bilaterally and equal. Scattered expiratory wheezing in all lung curits. HEART: Regular rate and rhythm without murmurs ABDOMEN: Soft, nontender, normoactive bowel sounds. No guarding, no rebound. No masses appreciated. EXTREMITIES: Normal range of motion, no pitting or edema. No cyanosis. NEUROLOGICAL: No focal neurological deficits. Moves all extremities spontaneously and on command. PSYCH: Oriented to person, calm and cooperative SKIN: Warm, Dry, normal turgor, no rashes or lesions noted. Course - Re-evaluation Re-evalutation: 10/22/18 22:56 Patient presents with complaints of bilateral lower extremity pain and difficulty walking. The patient is demented at baseline and I am not sure what regard she is seen that she is having difficulty walking relative to baseline as she is very familiar to me and does not walk at baseline. In fact we always razo ve the ambulance transport home because the patient is unable to sit up or even going a wheelchair. The patient is somewhat somnolent at the time of my evaluation, I will obtain a venous blood gas to ensure that she is not retaining CO2 secondary to her underlying COPD. Alternatively it could be getting late and the patient could just be tired she does still wake up and speak to me in a coherent fashion but is simply more somnolent than I am used to her being from my previous assessments. In regards to her leg pain, the patient has no evidence of edema, cellulitis or injury to the bilateral lower extremities. As long as the patient's venous blood gas is reassuring will plan for discharge home 10/22/18 23:38 Venous blood gases returned and is unremarkable. Patient is more alert now. Vitals remain within acceptable limits. At this time will discharge with return precautions and follow-up recommendations. Verbal discharge instructions given a the bedside and opportunity for questions given. Medication warnings reviewed. Patient is in agreement with this plan and has verbalized understanding of return precautions and the need for primary care follow-up in the next 24-72 hours. - Vital Signs Vital signs: Temp Pulse Resp BP Pulse Ox 98.1 F 12 107/61 100 10/22/18 20:05 10/23/18 01:45 10/23/18 01:45 10/23/18 01:45 - Laboratory Result Diagrams: 10/22/18 20:45 10/22/18 20:45 Laboratory results interpreted by me: 10/22/18 10/22/18 20:45 20:45 WBC 11.0 H RBC 3.06 L Hgb 9.8 L Hct 29.3 L RDW 15.8 H Seg Neutrophils % 84.0 H Lymphocytes % 6.7 L Absolute Neutrophils 9.3 H Carbon Dioxide 32 H BUN 35 H Glucose 193 H Total Bilirubin < 0.1 L Creatine Kinase < 20 L Total Protein 5.4 L Albumin 3.0 L - Diagnostic Test Radiology reviewed: Image reviewed, Reports reviewed Radiology results interpreted by me: 10/22/18 23:38 Chest x-ray: No acute infiltrate or pneumothorax - EKG Interpretation by Me Additional EKG results interpreted by me: 10/22/18 23:40 Sinus tachycardia, rate 109. Right bundle branch block. Unchanged from previous. Discharge - Discharge Clinical Impression: Leg pain, bilateral, Ambulatory dysfunction Dementia Qualifiers: Dementia type: unspecified type Dementia behavioral disturbance: without behavioral disturbance Qualified Code(s): F03.90 - Unspecified dementia without behavioral disturbance Condition: Good Disposition: HOME, SELF-CARE Additional Instructions: Your labs, exam, and x-ray are reassuring today. Please follow-up with your primary care doctor regarding your concerns today. Please return to the emergency room immediately if you experience any concerning symptoms including high fevers, severe headache, chest pain, difficulty breathing, abdominal pain, slurred speech, numbness or weakness in your arms or legs, or any other symptom that concerns you. Referrals: BAKARI VELARDE MD [Primary Care Provider] - Follow up as needed
[2018-10-22 23:13] LABS: VENOUS BLOOD BASE EXCESS 2.6 mmol/L; VENOUS BLOOD HCO3 28.2 mmol/L (20-32); VENOUS BLOOD PCO2 47.6 mmHg (35-63); VENOUS BLOOD PH 7.39 (7.30-7.42)
[2018-10-23 01:49] VITALS: BP 107/61
--- NOTE | 2018-10-23 09:50 | EKG REPORT ---
SEVERITY:- ABNORMAL ECG - SINUS TACHYCARDIA RIGHT BUNDLE BRANCH BLOCK : Confirmed by: Susan Mishra MD 23-Oct-2018 09:49:39
== END 2018-10-23 01:45 | disposition home or self-care (01) ==
LOC: ER 19:59
DX: M79.605 Pain in left leg (principal); M79.604 Pain in right leg; F03.90 Unspecified dementia, unspecified severity, without behavioral disturbance, psychotic disturbance, mood disturbance, and anxiety; R26.2 Difficulty in walking, not elsewhere classified; I45.10 Unspecified right bundle-branch block; J44.9 Chronic obstructive pulmonary disease, unspecified; E11.9 Type 2 diabetes mellitus without complications; I48.91 Unspecified atrial fibrillation; I50.9 Heart failure, unspecified; I11.0 Hypertensive heart disease with heart failure; Z90.49 Acquired absence of other specified parts of digestive tract; I25.2 Old myocardial infarction; Z88.0 Allergy status to penicillin; Z88.3 Allergy status to other anti-infective agents
CPT/HCPCS: 93005; 94640; 99284; 36415; 82553; 82550; 85025; 85610; 80053; 84484; 82803; 71045; 93010; A9270; J7620

== ENCOUNTER 2018-12-06 13:46 | Emergency (ER) | payer MEDICARE, OTHER ==
[2018-12-06 15:12] LABS: ABSOLUTE EOSINOPHILS # (AUTO) 0.2 10^3/uL (0.0-0.6); ABSOLUTE LYMPHOCYTES (AUTO) 0.6 10^3/uL (0.5-4.7); ABSOLUTE MONOCYTES (AUTO) 0.5 10^3/uL (0.1-1.4); ABSOLUTE NEUT (AUTO) 2.9 10^3/uL (1.7-8.2); BASOPHILS % (AUTO) 0.3 % (0-2); EOSINOPHILS % (AUTO) 4.8 % (0-6); HEMOGLOBIN 8.5 g/dL (12.0-15.5); LYMPHOCYTES % (AUTO) 13.7 % (13-45); MEAN CORPUSCULAR HEMOGLOBIN 32.8 pg (27.0-33.4); MEAN CORPUSCULAR HGB CONC 33.9 g/dL (32.0-36.0); MEAN CORPUSCULAR VOLUME 97 fl (80-97); MONOCYTES % (AUTO) 11.6 % (3-13); PLATELET COUNT 237 10^3/uL (150-450); RED BLOOD COUNT 2.58 10^6/uL (3.72-5.28); SEGMENTED NEUTROPHILS % (AUTO) 69.6 % (42-78); TOTAL CELLS COUNTED % (AUTO) 100 %; WHITE BLOOD COUNT 4.1 10^3/uL (4.0-10.5)
--- NOTE | 2018-12-06 15:26 | RADIOLOGY REPORT (SQ) ---
EXAM DESCRIPTION: CHEST SINGLE VIEW COMPLETED DATE/TIME: 12/06/2018 3:16 pm REASON FOR STUDY: bed 19 weakness COMPARISON: 10/22/2018 EXAM PARAMETERS: NUMBER OF VIEWS: One view. TECHNIQUE: Single frontal radiographic view of the chest acquired. RADIATION DOSE: NA LIMITATIONS: None. FINDINGS: LUNGS AND PLEURA: Stable right hilar prominence, unchanged when compared back to 2018. No definite effusion or consolidation. MEDIASTINUM AND HILAR STRUCTURES: Otherwise unremarkable HEART AND VASCULAR STRUCTURES: Heart normal in size. Normal vasculature. BONES: No acute findings. HARDWARE: None in the chest. OTHER: No other significant finding. IMPRESSION: Stable right hilar prominence. No evidence of an acute process. TECHNICAL DOCUMENTATION: JOB ID: [id number] [employer]- All Rights Reserved Reading location - IP/workstation name: [email or web address]
[2018-12-06 15:39] LABS: ALANINE AMINOTRANSFERASE 24 U/L (9-52); ALBUMIN 3.4 g/dL (3.5-5.0); ALKALINE PHOSPHATASE 50 U/L (38-126); ASPARTATE AMINO TRANSFERASE 27 U/L (14-36); BILIRUBIN,DIRECT 0.3 mg/dL (0.0-0.4); BILIRUBIN,TOTAL 0.3 mg/dL (0.2-1.3); BLOOD UREA NITROGEN 27 mg/dL (7-20); CALCIUM 9.2 mg/dL (8.4-10.2); CHLORIDE 97 mmol/L (98-107); GLUCOSE 121 mg/dL (75-110); POTASSIUM 4.5 mmol/L (3.6-5.0); SODIUM 140.7 mmol/L (137-145); TOTAL PROTEIN 6.1 g/dL (6.3-8.2)
[2018-12-06 15:51] LABS: ANION GAP 4 (5-19)
[2018-12-06 15:53] LABS: CARBON DIOXIDE 40 mmol/L (22-30)
[2018-12-06] MEDS ORDERED: IPRATROPIUM/ALBUTEROL 0.5-2.5 MG/3 ML AMPUL NEB ONE ×2 (17:36→22:00)
[2018-12-06 18:17] LABS: CREATINE KINASE 29 U/L (30-135)
[2018-12-06 19:07] LABS: APPEARANCE,URINE CLEAR; BILIRUBIN,URINE NEGATIVE (NEGATIVE); COLOR,URINE STRAW; GLUCOSE, URINE NEGATIVE (NEGATIVE); KETONES,URINE NEGATIVE (NEGATIVE); LEUKOCYTE ESTERASE,URINE MODERATE (NEGATIVE); NITRITE,URINE NEGATIVE (NEGATIVE); PROTEIN,URINE NEGATIVE (NEGATIVE); URINE SPECIFIC GRAVITY 1.006; UROBILINOGEN,URINE NEGATIVE mg/dL (<2.0)
[2018-12-06 19:15] LABS: ARTERIAL BLOOD FIO2 2L; ARTERIAL BLOOD HCO3 39.4 mmol/L (20-24); ARTERIAL BLOOD O2 SATURATION 94.8 % (94-98); ARTERIAL BLOOD PCO2 56.5 mmHg (35-45); ARTERIAL BLOOD PH 7.46 (7.35-7.45); ARTERIAL BLOOD PO2 71.5 mmHg (80-100); ARTERIAL BLOOD TOTAL CO2 41.1 mmol/L (21-25)
--- NOTE | 2018-12-06 19:45 | EKG REPORT ---
SEVERITY:- ABNORMAL ECG - SINUS TACHYCARDIA RIGHT BUNDLE BRANCH BLOCK : Confirmed by: Susan Mishra MD 06-Dec-2018 19:44:08
[2018-12-06 21:55] VITALS: BP 125/61
--- NOTE | 2018-12-06 22:11 | ER Document Report ---
Entered by TAYLOR RODRIGUEZ SCRIBE 12/06/18 [id number] Acting as scribe for:HUGO GUTIERREZ MD ED Respiratory Problem - General Chief Complaint: General Weakness Stated Complaint: WEAKNESS Time Seen by Provider: 12/06/18 17:10 Primary Care Provider: ARASELI HERNANDEZ MD [PEDIATRICS] - 12/07/18 (Follow-up with Dr. Hernandez in the next few days.) Information source: Patient Notes: Patient is a 73-year-old female who presents to the emergency department today with complaints of a cough. Patient is a poor historian as she has dementia so history is somewhat limited. Patient states she was "picked up by EMS" and was told that she needed to have a blood transfusion. It appears she was found to have a low hemoglobin by Dr. Hernandez in outpatient labs. Patient mentions that she has felt dizzy for the last x6 months and has felt generally weak for x1 week. TRAVEL OUTSIDE OF THE [place] IN LAST 30 DAYS: No - Related Data Allergies/Adverse Reactions: azithromycin Allergy (Verified 10/02/18 20:37) cephalexin Allergy (Verified 10/02/18 20:37) Penicillins Allergy (Verified 10/02/18 20:37) amoxicillin [Amoxicillin] Adverse Reaction (Verified 10/02/18 20:37) visual hallucinations erythromycin base [Erythromycin Base] Adverse Reaction (Verified 10/02/18 20:37) visual hallucinations Potassium Clavulanate * [From Augmentin] Adverse Reaction (Verified 10/02/18 20:37) visual hallucinations Past Medical History - General Information source: Patient - Social History Smoking Status: Never Smoker Cigarette use (# per day): No Frequency of alcohol use: None Drug Abuse: None Lives with: Family Family History: Reviewed & Not Pertinent, COPD, Malignancy - Lung cancer - Past Medical History Cardiac Medical History: Reports: Hx Atrial Fibrillation, Hx Congestive Heart Failure, Hx Coronary Artery Disease, Hx Heart Attack, Hx Hypertension Pulmonary Medical History: Reports: Hx Asthma, Hx Bronchitis, Hx COPD, Hx Pneumonia, Hx Respiratory Failure - Chronic respiratory failure Endocrine Medical History: Reports: Hx Diabetes Mellitus Type 2, Hx Hypothyroidism Malignancy Medical History: Reports: Hx Brain Cancer - Lung cancer with brain metastases, 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 GI Medical History: Reports: Hx Gastroesophageal Reflux Disease Musculoskeletal Medical History: Reports Hx Arthritis, Reports Hx Gout, Reports Hx Musculoskeletal Deformity, Reports Hx Musculoskeletal Trauma Psychiatric Medical History: Reports: Hx Dementia, Hx Depression Infectious Medical History: Reports: Hx C-Diff Past Surgical History: Reports: Hx Cholecystectomy, Hx Orthopedic Surgery - Foot surgery, Other - cataract bilateral - Immunizations Immunizations up to date: Yes Hx Diphtheria, Pertussis, Tetanus Vaccination: Yes Hx Pneumococcal Vaccination: 08/30/12 Review of Systems - Review of Systems Constitutional: No symptoms reported EENT: No symptoms reported Cardiovascular: No symptoms reported Respiratory: See HPI, Cough, Wheezing Gastrointestinal: No symptoms reported Genitourinary: No symptoms reported Female Genitourinary: No symptoms reported Musculoskeletal: No symptoms reported Skin: No symptoms reported Hematologic/Lymphatic: No symptoms reported Neurological/Psychological: No symptoms reported -: Yes All other systems reviewed and negative Physical Exam - Vital signs Vitals: Temp Pulse Resp BP Pulse Ox 98.1 F 108 H 21 H 117/73 99 12/06/18 14:11 12/06/18 14:11 12/06/18 14:11 12/06/18 14:11 12/06/18 14:11 - Notes Notes: Physical Exam: General: Alert, appears well. HEENT: Normocephalic. Atraumatic. PERRL. Extraocular movements intact. Oropharynx clear. Neck: Supple. Non-tender. Respiratory: Wheezing and rhonchi bilaterally, wet sounding cough. Cardiovascular: Regular rate and rhythm. Abdominal: Normal Inspection. Non-tender. No distension. Normal Bowel Sounds. Back: Non-tender. No deformity or step off. Extremities: Moves all four extremities. Upper extremities: Normal inspection. Normal ROM. Lower extremities: Normal inspection. No edema. Normal ROM. Neurological: Pleasantly demented at baseline. Psychological: Normal affect. Normal Mood. Skin: Ecchymosis in various stages of healing. Course - Re-evaluation Re-evalutation: 12/06/18 19:38 Patient states her breathing feels much better after DuoNeb treatment. Her lungs sound much more clear and do not hear the rattling and rhonchi when she coughs. 12/06/18 19:39 Reviewing the patient's records shows that she has had multiple negative stool Hemoccults and a single positive one on 10/22/2017. 12/06/18 20:12 Patient stool tonight is heme-negative. She did not meet criteria for transfusion at this time. Her breathing improved markedly with a single DuoNeb. She will be discharged home to continue her regular medications. 12/06/18 20:14 The patient's urine suggests you may have a urinary tract infection. She has culture positive for E. coli ESBL many times. We will wait for the culture report to decide about treatment. - Vital Signs Vital signs: Temp Pulse Resp BP Pulse Ox 98.4 F 68 21 H 125/63 100 12/06/18 19:00 12/06/18 20:09 12/06/18 20:01 12/06/18 20:01 12/06/18 20:01 - Laboratory Result Diagrams: 12/06/18 14:30 12/06/18 14:30 Laboratory results interpreted by me: 12/06/18 12/06/18 12/06/18 14:30 14:30 14:30 RBC 2.58 L Hgb 8.5 L Hct 25.0 L RDW 16.0 H Carbonic Acid ABG pH ABG pCO2 ABG pO2 ABG HCO3 ABG Total CO2 Chloride 97 L Carbon Dioxide 40 H* Anion Gap 4 L BUN 27 H Creatinine 1.31 H Est GFR ( Amer) 48 L Est GFR (Non-Af Amer) 40 L Glucose 121 H Creatine Kinase 29 L Total Protein 6.1 L Albumin 3.4 L Ur Leukocyte Esterase 12/06/18 12/06/18 18:30 19:13 RBC Hgb Hct RDW Carbonic Acid 1.70 H ABG pH 7.46 H ABG pCO2 56.5 H ABG pO2 71.5 L ABG HCO3 39.4 H ABG Total CO2 41.1 H Chloride Carbon Dioxide Anion Gap BUN Creatinine Est GFR ( Amer) Est GFR (Non-Af Amer) Glucose Creatine Kinase Total Protein Albumin Ur Leukocyte Esterase MODERATE H - Diagnostic Test Radiology reviewed: Image reviewed, Reports reviewed - Chest x-ray shows a right hilar mass that is stable. - EKG Interpretation by Me EKG shows normal: Sinus rhythm, [place], Intervals, QRS Complexes, ST-T Waves Rate: Tachycardia - 104 [place]/QRS: RBBB When compared to previous EKG there are: No significant change Discharge - Discharge Clinical Impression: COPD (chronic obstructive pulmonary disease) Qualifiers: COPD type: unspecified COPD Qualified Code(s): J44.9 - Chronic obstructive pulmonary disease, unspecified Anemia Qualifiers: Anemia type: unspecified type Qualified Code(s): D64.9 - Anemia, unspecified Condition: Stable Disposition: HOME, SELF-CARE Additional Instructions: Your hemoglobin level was 8.5 tonight, we generally do not transfuse above 8.0 unless there are symptoms associated with the anemia. Your wheezing and congestion cleared up quite a bit with a single breathing lisa tment. Your chest x-ray and CBC do not suggest an infectious process going on in your lungs at this time. Continue your regular medications. You should follow-up with your primary care provider next few days and let him review the records from the visit this evening with the records he has in the o ffice, to determine when you may need to receive your next transfusion. RETURN TO THE EMERGENCY ROOM IF ANY NEW OR WORSENING SYMPTOMS. Referrals: ARASELI HERNANDEZ MD [PEDIATRICS] - 12/07/18 (Follow-up with Dr. Hernandez in the next few days.) Scribe Attestation: 12/06/18 20:14 I personally performed the services described in the documentation, reviewed and edited the documentation which was dictated to the scribe in my presence, and it accurately records my words and actions. I personally performed the services described in the documentation, reviewed and edited the documentation which was dictated to the scribe in my presence, and it accurately records my words and actions.
== END 2018-12-06 22:57 | disposition home or self-care (01) ==
LOC: ER 13:46
DX: J44.9 Chronic obstructive pulmonary disease, unspecified (principal); D64.9 Anemia, unspecified; R05 Cough; F03.90 Unspecified dementia, unspecified severity, without behavioral disturbance, psychotic disturbance, mood disturbance, and anxiety; R00.0 Tachycardia, unspecified; R91.8 Other nonspecific abnormal finding of lung field; R42 Dizziness and giddiness; R53.1 Weakness; I25.10 Atherosclerotic heart disease of native coronary artery without angina pectoris; I10 Essential (primary) hypertension; E11.9 Type 2 diabetes mellitus without complications; Z85.118 Personal history of other malignant neoplasm of bronchus and lung; Z87.01 Personal history of pneumonia (recurrent); Z88.1 Allergy status to other antibiotic agents; Z88.0 Allergy status to penicillin; I45.10 Unspecified right bundle-branch block
CPT/HCPCS: 93005; 99285; 86900; 86901; 36415; 87040; 87070; 87086; 87205; 86850; 82803; 82550; 83735; 85025; 87077; 87088; 80053; 81001; 84484; 87186; 71045; 93010; A9270; J7620

== ENCOUNTER 2018-12-09 15:14 | Inpatient (IN) | payer MEDICARE, OTHER ==
[2018-12-09] MEDS ORDERED: IPRATROPIUM/ALBUTEROL 0.5-2.5 MG/3 ML AMPUL NEB ONE (15:56)
[2018-12-09] MEDS ORDERED: NORMAL SALINE 500 ML IV ONE (15:58)
--- NOTE | 2018-12-09 16:19 | ER Document Report ---
ED General - General Chief Complaint: Abdominal Pain Stated Complaint: ABDOMINAL PAIN Time Seen by Provider: 12/09/18 15:25 Primary Care Provider: BAKARI VELARDE MD [Primary Care Provider] - Follow up as needed Notes: Patient is a 73-year-old female with COPD, CHF that presents to the emergency department for chief complaint of abdominal pressure, and concerns for urinary tract infection. Patient was recently seen and treated for urinary tract infection, was placed on Macrobid as well as levothyroxine, she states she was having hallucinations on his medication she took a total of 3 days worth, her hallucinations have since improved, but she states she has had burning with urination and urinary frequency, and is concerned that it is not gone away. She has had subjective fevers, and has also felt somewhat short of breath. She is on 2 L nasal cannula 24 hours a day for her COPD. She is had a cough, but s tates that that rather chronic. She is also complaining of lower abdominal pain, particularly just above the pubic symphysis. Denies chest pain, diarrhea, nausea or vomiting. She is complaining of suprapubic pain, and she currently rates as a 5 out of 10, worse with any palpation over that area. 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 Family History: Reviewed and noncontributory for presenting illness Allergies: Reviewed, see documented allergy list. REVIEW OF SYSTEMS: Other than noted above, the 12 point review of systems was reviewed with the patient and were negative, all pertinent findings are included in the HPI. PHYSICAL EXAMINATION: Vital signs reviewed, nursing noted reviewed. GENERAL: Elderly, chronically ill-appearing female, no immediate distress HEAD: Atraumatic, normocephalic. EYES: Eyes appear normal, extraocular movements intact, sclera anicteric, conjunctiva are normal. ENT: nares patent, oropharynx clear without exudates. Moist mucous membranes. NECK: Normal range of motion, supple without lymphadenopathy LUNGS: Lung sounds are coarse bilaterally, inspiratory and expiratory wheezing HEART: Heart rate tachycardic, regular rhythm. ABDOMEN: Soft, suprapubic tenderness to palpation, normoactive bowel sounds. No rebound, guarding, or rigidity. No masses appreciated. EXTREMITIES: Nontender, good range of motion, no pitting or edema. NEUROLOGICAL: No focal neurological deficits. Moves all extremities spontaneously Motor and sensory grossly intact on exam. PSYCH: Normal mood, normal affect. SKIN: Warm, Dry, normal turgor, no rashes or lesions noted on exposed skin TRAVEL OUTSIDE OF THE [place] IN LAST 30 DAYS: No - Related Data Allergies/Adverse Reactions: azithromycin Allergy (Verified 10/02/18 20:37) cephalexin Allergy (Verified 10/02/18 20:37) Penicillins Allergy (Verified 10/02/18 20:37) amoxicillin [Amoxicillin] Adverse Reaction (Verified 10/02/18 20:37) visual hallucinations erythromycin base [Erythromycin Base] Adverse Reaction (Verified 10/02/18 20:37) visual hallucinations Potassium Clavulanate * [From Augmentin] Adverse Reaction (Verified 10/02/18 20:37) visual hallucinations Past Medical History - Social History Smoking Status: Former Smoker Chew tobacco use (# tins/day): No Frequency of alcohol use: None Drug Abuse: None Family History: Reviewed & Not Pertinent, COPD, Malignancy - Lung cancer Patient has suicidal ideation: No Patient has homicidal ideation: No - Past Medical History Cardiac Medical History: Reports: Hx Atrial Fibrillation, Hx Congestive Heart Failure, Hx Coronary Artery Disease, Hx Heart Attack, Hx Hypertension Denies: Hx DVT, Hx Hypercholesterolemia, Hx Pulmonary Embolism Pulmonary Medical History: Reports: Hx Asthma, Hx Bronchitis, Hx COPD, Hx Pneumonia, Hx Respiratory Failure - Chronic respiratory failure Denies: Hx Sleep Apnea, Hx Tuberculosis Neurological Medical History: Denies: Hx Seizures Endocrine Medical History: Reports: Hx Diabetes Mellitus Type 2, Hx Hypothyroidism. 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 Denies: Hx Cirrhosis, Hx Hepatitis, Hx Ulcer Musculoskeletal Medical History: Reports Hx Arthritis, Reports Hx Gout, Denies Hx Multiple Sclerosis, Reports Hx Musculoskeletal Deformity, Reports Hx Musculoskeletal Trauma Skin Medical History: Denies Hx Eczema, Denies Hx Psoriasis Psychiatric Medical History: Reports: Hx Dementia, Hx Depression Denies: Hx Bipolar Disorder, Hx Schizophrenia Infectious Medical History: Reports: Hx C-Diff. Denies: Hx Hepatitis Past Surgical History: Reports: Hx Cholecystectomy, Hx Orthopedic Surgery - Foot surgery, Other - cataract bilateral - Immunizations Immunizations up to date: Yes Hx Diphtheria, Pertussis, Tetanus Vaccination: Yes Hx Pneumococcal Vaccination: 08/30/12 Course - Re-evaluation Re-evalutation: Patient seen and examined vital signs reviewed. Laboratory data and imaging were ordered as appropriate for the patient's presenting symptoms and complaint, with consideration of any critical or life threatening conditions that may be associated with their obtained history and exam as noted above. Patient was treated with IV fluids, and was started on IV meropenem, 1 g Results were reviewed when available and demonstrated anemia, which appears to be chronic, no leukocytosis, it appears she is having increased acute kidney injury, her creatinine has increased from her prior visit as well, well above her baseline, I feel the patient is likely getting dehydrated. Also concerned about flare of her chronic urinary tract infection that grows ESBL E. coli, and therefore that is why the patient was given a dose of meropenem as she is having superpubic tenderness and is tachycardic, lactic acid is normal, blood culture sent, urine and urine cultures will be sent. The patient was re-evaluated and was stable, I did discuss the case with Dr. Roche, who asked to get a CT of the abdomen and pelvis, will do without contrast given patient's renal function. Evaluation was most consistent with UTI, ESBL organism, dehydration, and acute kidney injury Results were discussed with the patient at this point after careful consideration I feel that that patient should be admitted to the hospital. This was discussed with the patient that it is in the best interest for their care to be admitted for further evaluation and management. Patient agreed with this plan of care. A call was placed to the admitted physician, [] who graciously accepted the patient onto their service. *Note is created using voice recognition software and may contain spelling, syntax or grammatical errors. Laboratory 12/09/18 12/09/18 12/09/18 16:10 16:10 16:10 WBC 5.5 RBC 2.77 L Hgb 8.8 L Hct 26.3 L MCV 95 MCH 31.8 MCHC 33.5 RDW 15.7 H Plt Count 276 Total Counted 100 Seg Neutrophils % Not Reportable Seg Neuts % (Manual) 90 H Lymphocytes % Not Reportable Lymphocytes % (Manual) 4 L Monocytes % Not Reportable Monocytes % (Manual) 5 Eosinophils % Not Reportable Eosinophils % (Manual) 1 Basophils % Not Reportable Basophils % (Manual) 0 Absolute Neutrophils Not Reportable Abs Neuts (Manual) 5.0 Absolute Lymphocytes Not Reportable Abs Lymphs (Manual) 0.2 L Absolute Monocytes Not Reportable Abs Monocytes (Manual) 0.3 Absolute Eosinophils Not Reportable Absolute Eos (Manual) 0.1 Absolute Basophils Not Reportable Abs Basophils (Manual) 0.0 Platelet Comment ADEQUATE Anisocytosis SLIGHT Sodium 139.8 Potassium 4.6 Chloride 97 L Carbon Dioxide 36 H Anion Gap 7 BUN 32 H Creatinine 1.64 H Est GFR ( Amer) 37 L Est GFR (Non-Af Amer) 31 L Glucose 141 H Lactic Acid 1.5 Calcium 9.1 Total Bilirubin 0.2 Direct Bilirubin 0.2 Neonat Total Bilirubin Not Reportable Neonat Direct Bilirubin Not Reportable Neonat Indirect Bili Not Reportable AST 21 ALT 20 Alkaline Phosphatase 62 Total Protein 5.9 L Albumin 3.5 Lipase 80.3 Chest X-Ray 12/09/18 15:57 IMPRESSION: Stable chest. - Laboratory Result Diagrams: 12/09/18 16:10 12/09/18 16:10 Laboratory results interpreted by me: 12/09/18 12/09/18 16:10 16:10 RBC 2.77 L Hgb 8.8 L Hct 26.3 L RDW 15.7 H Seg Neuts % (Manual) 90 H Lymphocytes % (Manual) 4 L Abs Lymphs (Manual) 0.2 L Chloride 97 L Carbon Dioxide 36 H BUN 32 H Creatinine 1.64 H Est GFR ( Amer) 37 L Est GFR (Non-Af Amer) 31 L Glucose 141 H Total Protein 5.9 L - EKG Interpretation by Me Additional EKG results interpreted by me: EKG demonstrates sinus tachycardia with a ventricular rate of 106 bpm, left axis deviation, QTC 494 ms, presence of right bundle branch block, no acute ST elevation,'s compared to prior EKG from 12/06/2017, without significant change. Discharge - Discharge Clinical Impression: MARY LOU (acute kidney injury), Dehydration UTI (urinary tract infection) Qualifiers: Urinary tract infection type: site unspecified Hematuria presence: without hematuria Qualified Code(s): N39.0 - Urinary tract infection, site not specified Anemia Qualifiers: Anemia type: unspecified type Qualified Code(s): D64.9 - Anemia, unspecified Condition: Stable Disposition: ADMITTED INPATIENT Admitting Provider: Kaley (Hospitalist) Unit Admitted: Telemetry Referrals: BAKARI VELARDE MD [Primary Care Provider] - Follow up as needed
[2018-12-09 16:37] LABS: HEMATOCRIT 26.3 % (36.0-47.0); HEMOGLOBIN 8.8 g/dL (12.0-15.5); MEAN CORPUSCULAR HEMOGLOBIN 31.8 pg (27.0-33.4); MEAN CORPUSCULAR HGB CONC 33.5 g/dL (32.0-36.0); MEAN CORPUSCULAR VOLUME 95 fl (80-97); PLATELET COUNT 276 10^3/uL (150-450); RED BLOOD COUNT 2.77 10^6/uL (3.72-5.28); RED CELL DISTRIBUTION WIDTH 15.7 % (11.5-14.0); WHITE BLOOD COUNT 5.5 10^3/uL (4.0-10.5)
[2018-12-09 16:48] LABS: ALANINE AMINOTRANSFERASE 20 U/L (9-52); ALBUMIN 3.5 g/dL (3.5-5.0); ALKALINE PHOSPHATASE 62 U/L (38-126); ANION GAP 7 (5-19); ASPARTATE AMINO TRANSFERASE 21 U/L (14-36); BILIRUBIN,DIRECT 0.2 mg/dL (0.0-0.4); BILIRUBIN,TOTAL 0.2 mg/dL (0.2-1.3); BLOOD UREA NITROGEN 32 mg/dL (7-20); CALCIUM 9.1 mg/dL (8.4-10.2); CARBON DIOXIDE 36 mmol/L (22-30); CHLORIDE 97 mmol/L (98-107); GLUCOSE 141 mg/dL (75-110); LIPASE 80.3 U/L (23-300); POTASSIUM 4.6 mmol/L (3.6-5.0); SODIUM 139.8 mmol/L (137-145); TOTAL PROTEIN 5.9 g/dL (6.3-8.2)
--- NOTE | 2018-12-09 16:55 | RADIOLOGY REPORT (SQ) ---
EXAM DESCRIPTION: CHEST SINGLE VIEW COMPLETED DATE/TIME: 12/09/2018 4:25 pm REASON FOR STUDY: shortness of breath COMPARISON: 12/06/2018. CT from September NUMBER OF VIEWS: One view. TECHNIQUE: Single frontal radiographic view of the chest acquired. LIMITATIONS: None. FINDINGS: LUNGS AND PLEURA: No change in right perihilar distortion and prominence. MEDIASTINUM AND HILAR STRUCTURES: As above. HEART AND VASCULAR STRUCTURES: Heart normal in size. Normal vasculature. BONES: No acute findings. HARDWARE: None in the chest. OTHER: No other significant finding. IMPRESSION: Stable chest. TECHNICAL DOCUMENTATION: JOB ID: [id number] [employer]- All Rights Reserved Reading location - IP/workstation name: [email or web address]
[2018-12-09 17:10] LABS: ABSOLUTE LYMPHOCYTES# (MANUAL) 0.2 10^3/uL (0.5-4.7); ABSOLUTE MONOCYTES # (MANUAL) 0.3 10^3/uL (0.1-1.4); ANISOCYTOSIS SLIGHT; BASOPHILS % (MANUAL) 0 % (0-2); EOSINOPHILS % (MANUAL) 1 % (0-6); LYMPHOCYTES % (MANUAL) 4 % (13-45); MONOCYTES % (MANUAL) 5 % (3-13); SEGMENTED NEUTROPHILS % (MAN) 90 % (42-78); TOTAL CELLS COUNTED 100
[2018-12-09 17:11] LABS: PLATELET COMMENT ADEQUATE
[2018-12-09] MEDS ORDERED: MEROPENEM 1 GM VIAL IV ONE (17:12)
[2018-12-09] MEDS ORDERED: MAGNESIUM HYDROXIDE SUSP 30 ML UDCUP PO PRN (17:49)
[2018-12-09] MEDS ORDERED: METHYLPREDNISOLONE INJ 40 MG/1 ML SDV IV ONE (17:57)
--- NOTE | 2018-12-09 18:12 | PDOC H&P ---
History of Present Illness Admission Date/PCP: 12/09/18 17:52 BAKARI VELARDE MD History of Present Illness: TRENTON MCCOY is a 73 year old female patient with multiple comorbidities including history of lung cancer with metastasis to the brain. CHF diastolic, coronary artery disease, hypertension, hyperlipidemia, COPD, hypothyroidism, chronic respiratory failure O2 dependent 20/02 presents with chief complaint of lower abdominal pain and shortness of breath. Complains of c rampy pain localized to her bladder area. Patient was seen 3 days ago at this hospital where her urine culture grew E. coli ESBL and at that time sputum culture also done and it grew Pseudomonas aeruginosa which is pansensitive. Patient denies any chills, fever, chest pain, palpitation or diaphoresis. She has underlying chronic cough and shortness of breath. Her initial blood work is unremarkable except for hemoglobin of 8.8 and creatinine of 1.64. Her chest x- ray reported as stable. Patient has been treated as outpatient with Levaquin and Macrobid by her primary care physician for 3 days and patient stated she was having hallucinations while taking the above-mentioned medications. When I evaluate the patient patient has marketed suprapubic tenderness. Past Medical History Cardiac Medical History: Reports: Atrial Fibrillation, Congestive Heart Failure, Coronary Artery Disease, Myocardial Infarction, Hypertension Denies: DVT, Hyperlipidema, Pulmonary Embolism Pulmonary Medical History: Reports: Asthma, Bronchitis, Chronic Obstructive Pulmonary Disease (COPD), Pneumonia, Respiratory Failure - Chronic respiratory failure Denies: Sleep Apnea, Tuberculosis Neurological Medical History: Denies: Seizures Endocrine Medical History: Reports: Diabetes Mellitus Type 2, Hypothyroidism Denies: Diabetes Mellitus Type 1, Hyperthyroidism Renal/ Medical History: Denies: End Stage Renal Disease Malignancy Medical History: Reports: Brain Cancer - Lung cancer with brain metastases, 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 GI Medical History: Reports: Gastroesophageal Reflux Disease Denies: Cirrhosis, Hepatitis Musculoskeltal Medical History: Reports: Arthritis, Gout Skin Medical History: Denies: Eczema, Psoriasis Psychiatric Medical History: Reports: Dementia, Depression Denies: Bipolar Disorder Hematology: Reports: Anemia, Bleeding Tendencies Infectious Medical History: Reports: Clostridium Difficile Past Surgical History Past Surgical History: Reports: Cholecystectomy, Orthopedic Surgery - Foot surgery, Other - cataract bilateral Social History Smoking Status: Former Smoker Frequency of Alcohol Use: None Hx Recreational Drug Use: No Drugs: None Hx Prescription Drug Abuse: No - Advance Directive Resuscitation Status: Full Code Family History Family History: Reviewed & Not Pertinent, COPD, Malignancy - Lung cancer Parental Family History Reviewed: Yes Children Family History Reviewed: Yes Sibling(s) Family History Reviewed.: Yes Medication/Allergy Home Medications: Furosemide [Lasix 20 mg Tablet] 20 mg PO QAM 10/03/18 Lisinopril [Zestril] 5 mg PO DAILY 10/03/18 Metoprolol Succinate [Toprol Xl 25 mg Tab.sr] 25 mg PO DAILY 10/03/18 Nystatin 1 applic TOP BID 10/03/18 Fluticasone/Salmeterol [Advair 250-50 Diskus 14 Dose/Diskus] 1 inh IH Q12H #1 inhaler 10/12/18 Ipratropium/Albuterol Sulfate [Duoneb 3 ml Ampul] 3 ml NEB [id number] PRN #30 vial.neb 10/12/18 Levothyroxine Sodium [Synthroid 0.05 mg Tablet] 0.05 mg PO QAM #30 tablet 10/12/18 Prednisone [Deltasone 20 mg Tablet] 20 mg PO BID 5 Days #10 tablet 10/12/18 Tiotropium Man[place] [Spiriva Handihaler 5 Cap/Kit (18 Mcg/Cap)] 1 cap IH DAILY #30 capsule 10/12/18 Allergies/Adverse Reactions: azithromycin Allergy (Verified 10/02/18 20:37) cephalexin Allergy (Verified 10/02/18 20:37) Penicillins Allergy (Verified 10/02/18 20:37) amoxicillin [Amoxicillin] Adverse Reaction (Verified 10/02/18 20:37) visual hallucinations erythromycin base [Erythromycin Base] Adverse Reaction (Verified 10/02/18 20:37) visual hallucinations Potassium Clavulanate * [From Augmentin] Adverse Reaction (Verified 10/02/18 20:37) visual hallucinations Review of Systems Constitutional: PRESENT: as per HPI Ears: PRESENT: as per HPI Cardiovascular: PRESENT: chest pain Respiratory: PRESENT: as per HPI Gastrointestinal: PRESENT: as per HPI Genitourinary: PRESENT: as per HPI Neurological: PRESENT: as per HPI Psychiatric: PRESENT: as per HPI Physical Exam Vital Signs: Intake & Output 12/08/18 12/09/18 12/10/18 06:59 06:59 06:59 Intake Total 500 Balance 500 Weight 83.5 kg General appearance: PRESENT: mild distress Head exam: PRESENT: atraumatic Eye exam: PRESENT: conjunctiva pink Mouth exam: PRESENT: dry mucosa Neck exam: ABSENT: carotid bruit, JVD, lymphadenopathy, thyromegaly Respiratory exam: PRESENT: crackles, decreased breath sounds, wheezes Cardiovascular exam: PRESENT: RRR. ABSENT: diastolic murmur, rubs, systolic mu rmur GI/Abdominal exam: PRESENT: normal bowel sounds, soft. ABSENT: distended, guarding, mass, organolmegaly, rebound, tenderness Extremities exam: PRESENT: +1 edema - Ecchymotic lesion over her bilateral knees. Results Laboratory Results: 12/09/18 16:10 12/09/18 16:10 12/09/18 12/09/18 12/09/18 16:10 16:10 16:10 WBC 5.5 RBC 2.77 L Hgb 8.8 L Hct 26.3 L MCV 95 MCH 31.8 MCHC 33.5 RDW 15.7 H Plt Count 276 Seg Neutrophils % Not Reportable Lymphocytes % Not Reportable Monocytes % Not Reportable Eosinophils % Not Reportable Basophils % Not Reportable Absolute Neutrophils Not Reportable Absolute Lymphocytes Not Reportable Absolute Monocytes Not Reportable Absolute Eosinophils Not Reportable Absolute Basophils Not Reportable Sodium 139.8 Potassium 4.6 Chloride 97 L Carbon Dioxide 36 H Anion Gap 7 BUN 32 H Creatinine 1.64 H Est GFR ( Amer) 37 L Est GFR (Non-Af Amer) 31 L Glucose 141 H Lactic Acid 1.5 Calcium 9.1 Total Bilirubin 0.2 AST 21 ALT 20 Alkaline Phosphatase 62 Total Protein 5.9 L Albumin 3.5 Lipase 80.3 Impressions: Chest X-Ray 12/09/18 15:57 IMPRESSION: Stable chest. Assessment and Plan - Diagnosis (1) Acute kidney injury Is this a current diagnosis for this admission?: Yes Plan: Most probably due to dehydration. Since patient has underlying congestive heart failure will be gently hydrated with normal saline at rate of 75 mils per hour. And check her BMP in a.m. (2) Complicated UTI (urinary tract infection) Is this a current diagnosis for this admission?: Yes Plan: Her urine culture which was done on 12/07/2011 grew ESBL E. coli. And patient has been started on meropenem since her sputum culture also grew Pseudomonas aeruginosa. Patient is allergic to penicillin (3) Chronic respiratory failure due to COPD Is this a current diagnosis for this admission?: Yes Plan: Keep the patient on supplemental oxygen and was started on bronchodilator and Solu-Medrol since patient has been on prednisone (4) Coronary artery disease Qualifiers: Coronary Disease-Associated Artery/Lesion type: [place] artery Is this a current diagnosis for this admission?: Yes Plan: No anginal symptoms we will continue her home medication. (5) Hypertension Qualifiers: Hypertension type: essential hypertension Qualified Code(s): I10 - Essential (primary) hypertension Is this a current diagnosis for this admission?: Yes Plan: Continue her home medication (6) Hypothyroidism (acquired) Is this a current diagnosis for this admission?: Yes Plan: Continue Synthroid (7) Diastolic CHF, chronic Is this a current diagnosis for this admission?: Yes Plan: Compensated. (8) Hyperlipidemia Qualifiers: Hyperlipidemia type: unspecified Qualified Code(s): E78.5 - Hyperlipidemia, unspecified Is this a current diagnosis for this admission?: Yes Plan: Continue home medication (9) Chronic anemia Is this a current diagnosis for this admission?: Yes Plan: Etiology unclear. Most probably due to anemia of chronic disease. We will do stool for occult blood. - Inpatient Certification Medical Necessity: Need Close Monitoring Due to Risk of Patient Decompensation, Need For IV Fluids, Need for IV Antibiotics Post Hospital Care: Other - Outpatient treatment failure
[2018-12-09] MEDS: DOCUSATE SODIUM 100 MG/10 ML UDC PO SCH (19:02)
[2018-12-09 19:06] LABS: APPEARANCE,URINE TURBID; BILIRUBIN,URINE NEGATIVE (NEGATIVE); COLOR,URINE YELLOW; GLUCOSE, URINE NEGATIVE (NEGATIVE); KETONES,URINE NEGATIVE (NEGATIVE); LEUKOCYTE ESTERASE,URINE LARGE (NEGATIVE); NITRITE,URINE NEGATIVE (NEGATIVE); PROTEIN,URINE NEGATIVE (NEGATIVE); URINE SPECIFIC GRAVITY 1.005; UROBILINOGEN,URINE NEGATIVE mg/dL (<2.0)
--- NOTE | 2018-12-09 19:06 | RADIOLOGY REPORT (SQ) ---
EXAM DESCRIPTION: CT ABD/PELVIS NO ORAL OR IV COMPLETED DATE/TIME: 12/09/2018 6:40 pm REASON FOR STUDY: suprapubic abdominal pain COMPARISON: 09/17/2018 TECHNIQUE: CT scan of the abdomen and pelvis performed without intravenous or oral contrast. Images reviewed with lung, soft tissue, and bone windows. Reconstructed coronal and sagittal MPR images revi ewed. All images stored on PACS. All CT scanners at this facility use dose modulation, iterative reconstruction, and/or weight based d osing when appropriate to reduce radiation dose to as low as reasonably achievable (ALARA). [facility]: Dose Right [facility]: CareDose [facility]: Dose Right [facility]: Teradose 4D [facility]: [employer] RADIATION DOSE: CT Rad equipment meets quality standard of care and radiation dose reduction techniq ues were employed. CTDIvol: 13.9 mGy. DLP: 666 mGy-cm.mGy. LIMITATIONS: None. FINDINGS: LOWER CHEST: No significant findings. No nodules or infiltrates. NON-CONTRASTED LIVER, SPLEEN, ADRENALS: Chronic pneumobilia. PANCREAS: No masses. No peripancreatic inflammatory changes. GALLBLADDER: Surgically absent. RIGHT KIDNEY AND URETER: Minimal fullness in the renal pelvis and collecting system but no obstructin g ureteral stone. LEFT KIDNEY AND URETER: No solid masses. No significant calcification. No hydronephrosis or hydrouret er. AORTA AND RETROPERITONEUM: Dense aortic calcification without aneurysm. BOWEL AND PERITONEAL CAVITY: No obvious masses or inflammatory changes. No free fluid. APPENDIX: Normal. PELVIS, BLADDER, AND ABDOMINAL WALL:Sidhu catheter well into the bladder with a coiled appearance. B ladder decompressed. No pelvic mass or fluid. No abdominal wall mass or hernia. BONES: No significant findings. OTHER: No other significant finding. IMPRESSION: 1. Allowing for slight nonspecific right hydronephrosis, negative for acute abnormality. No obstruct ing stones. 2. Sidhu catheter is well within the bladder and has a coiled appearance. This could perhaps be adju sted, pulled back some. TECHNICAL DOCUMENTATION: JOB ID: [id number] Quality ID # [id number]: Final reports with documentation of one or more dose reduction techniques (e.g., Au tomated exposure control, adjustment of the mA and/or kV according to patient size, use of iterative reconstruction technique) 2010 [employer]- All Rights Reserved Reading location - IP/workstation name: [email or web address]
[2018-12-09] MEDS: IPRATROPIUM/ALBUTEROL 0.5-2.5 MG/3 ML AMPUL NEB SCH (21:05)
[2018-12-09] MEDS: ACETAMINOPHEN 325 MG TABLET PO PRN (21:59)
[2018-12-09] MEDS: HEPARIN SOD (PORCINE) 5,000 UNIT/ML 1 ML SYRINGE SUBCUT SCH (22:00)
[2018-12-09] MEDS: FAMOTIDINE 20 MG TABLET PO SCH (22:00)
[2018-12-09] MEDS ORDERED: TIOTROPIUM BROMIDE DPI 5 CAP/KIT (18 MCG/CAP) IH ONE (22:12)
[2018-12-09] MEDS: TIOTROPIUM BROMIDE DPI 5 CAP/KIT (18 MCG/CAP) IH SCH (22:19)
[2018-12-09] MEDS: NORMAL SALINE 1000 ML 1,000 ML IV PRN (22:55)
[2018-12-09] MEDS ORDERED: MEROPENEM 500 MG VIAL IV PRN (23:00)
--- NOTE | 2018-12-09 23:49 | EKG REPORT ---
SEVERITY:- ABNORMAL ECG - SINUS TACHYCARDIA RIGHT BUNDLE BRANCH BLOCK : Confirmed by: Susan Mishra MD 09-Dec-2018 23:49:22
[2018-12-10] MEDS: IPRATROPIUM/ALBUTEROL 0.5-2.5 MG/3 ML AMPUL NEB SCH ×6 (00:50→20:48)
[2018-12-10] MEDS ORDERED: MEROPENEM 500 MG VIAL ONE (01:48)
[2018-12-10] MEDS: METHYLPREDNISOLONE INJ 40 MG/1 ML SDV IV SCH ×3 (02:34→17:23)
[2018-12-10] MEDS: MEROPENEM 500 MG in NORMAL SALINE 50 ML IV SCH ×3 (02:35→17:24)
[2018-12-10 03:55] LABS: ABSOLUTE RETICS # 0.038 10^6/uL (0.028-0.122); HEMATOCRIT 24.1 % (36.0-47.0); HEMOGLOBIN 8.1 g/dL (12.0-15.5); MEAN CORPUSCULAR HEMOGLOBIN 31.8 pg (27.0-33.4); MEAN CORPUSCULAR HGB CONC 33.5 g/dL (32.0-36.0); MEAN CORPUSCULAR VOLUME 95 fl (80-97); PLATELET COUNT 249 10^3/uL (150-450); RED BLOOD COUNT 2.53 10^6/uL (3.72-5.28); RED CELL DISTRIBUTION WIDTH 15.5 % (11.5-14.0); RETICULOCYTE COUNT (AUTO) 1.51 % (0.66-2.85); WHITE BLOOD COUNT 5.1 10^3/uL (4.0-10.5)
[2018-12-10 04:12] LABS: ABSOLUTE LYMPHOCYTES# (MANUAL) 0.2 10^3/uL (0.5-4.7); ABSOLUTE MONOCYTES # (MANUAL) 0.1 10^3/uL (0.1-1.4); ABSOLUTE NEUTROPHILS# (MANUAL) 4.9 10^3/uL (1.7-8.2); BAND NEUTROPHILS % (MANUAL) 5 % (3-5); BASOPHILS % (MANUAL) 0 % (0-2); EOSINOPHILS % (MANUAL) 0 % (0-6); LYMPHOCYTES % (MANUAL) 3 % (13-45); MONOCYTES % (MANUAL) 1 % (3-13); SEGMENTED NEUTROPHILS % (MAN) 88 % (42-78); TOTAL CELLS COUNTED 100
[2018-12-10 04:13] LABS: PLATELET COMMENT ADEQUATE; TOXIC GRANULATION SLIGHT; TOXIC VACUOLATION PRESENT
[2018-12-10 04:15] LABS: HYPOCHROMASIA 1+; OVALOCYTES SLIGHT; TEAR DROP CELLS SLIGHT
[2018-12-10 04:16] LABS: METAMYELOCYTES % (MANUAL) 1 % (0); MYELOCYTES % (MANUAL) 1 % (0); PROMYELOCYTES % (MANUAL) 1 % (0)
[2018-12-10 04:22] LABS: ANION GAP 9 (5-19); BLOOD UREA NITROGEN 32 mg/dL (7-20); CALCIUM 8.8 mg/dL (8.4-10.2); CARBON DIOXIDE 31 mmol/L (22-30); CHLORIDE 99 mmol/L (98-107); GLUCOSE 266 mg/dL (75-110); IRON(TIBC) 65.6 ug/dL (37-170); POTASSIUM 4.5 mmol/L (3.6-5.0); SODIUM 138.7 mmol/L (137-145)
[2018-12-10] MEDS: ACETAMINOPHEN 325 MG TABLET PO PRN ×2 (04:54→13:12)
[2018-12-10] MEDS: HEPARIN SOD (PORCINE) 5,000 UNIT/ML 1 ML SYRINGE SUBCUT SCH ×3 (05:45→21:00)
[2018-12-10 06:27] LABS: FOLATE > 20.00 ng/mL (>2.76)
[2018-12-10] MEDS: DOCUSATE SODIUM 100 MG/10 ML UDC PO SCH ×2 (09:16→17:18)
[2018-12-10] MEDS: TIOTROPIUM BROMIDE DPI 5 CAP/KIT (18 MCG/CAP) IH SCH (09:23)
[2018-12-10] MEDS: FAMOTIDINE 20 MG TABLET PO SCH ×2 (09:23→21:00)
--- NOTE | 2018-12-10 11:11 | PDOC PROGRESS REPORT ---
Subjective Progress Note for:: 12/10/18 Subjective:: TRENTON MCCOY is a 73 year old female patient with multiple comorbidities including history of lung cancer with metastasis to the brain. CHF diastolic, coronary artery disease, hypertension, hyperlipidemia, COPD, hypothyroidism, chronic respiratory failure O2 dependent 20/02 presents with chief complaint of lower abdominal pain and shortness of breath. She complains of crampy pain localized to her bladder area. Her urine analysis positive for leukocyte esterase and pyuria. Urine culture done on December 06 is positive for ESBL E. coli. And her sputum cultures positive for Pseudomonas aeruginosa. Patient has been started on meropenem since she has allergy to penicillin. This morning I seen patient propped up in bed. She is awake alert oriented and she states that her abdominal pain is relatively better than yesterday. Reason For Visit: COMPLICATED UTI. ACUTE KIDNEY INJURY. Physical Exam Vital Signs: Temp Pulse Resp BP Pulse Ox 97.6 F 102 H 24 H 144/71 H 95 12/10/18 04:03 12/10/18 08:08 12/10/18 08:08 12/10/18 04:03 12/10/18 08:08 Intake & Output 12/09/18 12/10/18 12/11/18 06:59 06:59 06:59 Intake Total 1270 50 Output Total 1200 Balance 70 50 Weight 79.9 kg General appearance: PRESENT: mild distress Eye exam: PRESENT: conjunctiva pink Neck exam: ABSENT: carotid bruit, JVD, lymphadenopathy, thyromegaly Respiratory exam: PRESENT: wheezes Cardiovascular exam: PRESENT: RRR. ABSENT: diastolic murmur, rubs, systolic murmur Neurological exam: PRESENT: alert, awake, oriented to time, oriented to situation Results Laboratory Results: 12/10/18 03:33 12/10/18 03:33 12/09/18 12/09/18 12/09/18 16:10 16:10 16:10 WBC 5.5 RBC 2.77 L Hgb 8.8 L Hct 26.3 L MCV 95 MCH 31.8 MCHC 33.5 RDW 15.7 H Plt Count 276 Seg Neutrophils % Not Reportable Lymphocytes % Not Reportable Monocytes % Not Reportable Eosinophils % Not Reportable Basophils % Not Reportable Absolute Neutrophils Not Reportable Absolute Lymphocytes Not Reportable Absolute Monocytes Not Reportable Absolute Eosinophils Not Reportable Absolute Basophils Not Reportable Retic Count (auto) Absolute Retic Sodium 139.8 Potassium 4.6 Chloride 97 L Carbon Dioxide 36 H Anion Gap 7 BUN 32 H Creatinine 1.64 H Est GFR ( Amer) 37 L Est GFR (Non-Af Amer) 31 L Glucose 141 H Lactic Acid 1.5 Calcium 9.1 Iron TIBC % Saturation Ferritin Total Bilirubin 0.2 AST 21 ALT 20 Alkaline Phosphatase 62 Total Protein 5.9 L Albumin 3.5 Lipase 80.3 Vitamin B12 Folate TSH Urine Color Urine Appearance Urine pH Ur Specific [place] Urine Protein Urine Glucose (UA) Urine Ketones Urine Blood Urine Nitrite Ur Leukocyte Esterase Urine WBC (Auto) Urine RBC (Auto) 12/09/18 12/10/18 12/10/18 18:49 03:33 03:33 WBC 5.1 RBC 2.53 L Hgb 8.1 L Hct 24.1 L MCV 95 MCH 31.8 MCHC 33.5 RDW 15.5 H Plt Count 249 Seg Neutrophils % Not Reportable Lymphocytes % Not Reportable Monocytes % Not Reportable Eosinophils % Not Reportable Basophils % Not Reportable Absolute Neutrophils Not Reportable Absolute Lymphocytes Not Reportable Absolute Monocytes Not Reportable Absolute Eosinophils Not Reportable Absolute Basophils Not Reportable Retic Count (auto) 1.51 Absolute Retic 0.038 Sodium 138.7 Potassium 4.5 Chloride 99 Carbon Dioxide 31 H Anion Gap 9 BUN 32 H Creatinine 1.51 H Est GFR ( Amer) 41 L Est GFR (Non-Af Amer) 34 L Glucose 266 H Lactic Acid Calcium 8.8 Iron 65.6 TIBC 259 % Saturation 25 Ferritin 237.00 Total Bilirubin AST ALT Alkaline Phosphatase Total Protein Albumin Lipase Vitamin B12 417.0 Folate > 20.00 TSH Urine Color YELLOW Urine Appearance TURBID Urine pH 8.0 Ur Specific [place]ora 1.005 Urine Protein NEGATIVE Urine Glucose (UA) NEGATIVE Urine Ketones NEGATIVE Urine Blood SMALL H Urine Nitrite NEGATIVE Ur Leukocyte Esterase LARGE H Urine WBC (Auto) >182 Urine RBC (Auto) 5 12/10/18 03:33 WBC RBC Hgb Hct MCV MCH MCHC RDW Plt Count Seg Neutrophils % Lymphocytes % Monocytes % Eosinophils % Basophils % Absolute Neutrophils Absolute Lymphocytes Absolute Monocytes Absolute Eosinophils Absolute Basophils Retic Count (auto) Absolute Retic Sodium Potassium Chloride Carbon Dioxide Anion Gap BUN Creatinine Est GFR ( Amer) Est GFR (Non-Af Amer) Glucose Lactic Acid Calcium Iron TIBC % Saturation Ferritin Total Bilirubin AST ALT Alkaline Phosphatase Total Protein Albumin Lipase Vitamin B12 Folate TSH 4.24 Urine Color Urine Appearance Urine pH Ur Specific Flora Urine Protein Urine Glucose (UA) Urine Ketones Urine Blood Urine Nitrite Ur Leukocyte Esterase Urine WBC (Auto) Urine RBC (Auto) Impressions: Chest X-Ray 12/09/18 15:57 IMPRESSION: Stable chest. Abdomen/Pelvis CT 12/09/18 17:25 IMPRESSION: 1. Allowing for slight nonspecific right hydronephrosis, negative for acute abn ormality. No obstructing stones. 2. Sidhu catheter is well within the bladder and has a coiled appearance. This could perhaps be adjusted, pulled back some. Assessment and Plan - Diagnosis (1) Acute kidney injury Is this a current diagnosis for this admission?: Yes Plan: Slightly improved (2) Complicated UTI (urinary tract infection) Is this a current diagnosis for this admission?: Yes Plan: Continue current antibiotics. (3) Chronic respiratory failure due to COPD Is this a current diagnosis for this admission?: Yes Plan: Keep the patient on supplemental oxygen and was started on bronchodilator and Solu-Medrol since patient has been on prednisone (4) Coronary artery disease Qualifiers: Coronary Disease-Associated Artery/Lesion type: [place] artery Is this a current diagnosis for this admission?: Yes Plan: No anginal symptoms we will continue her home medication. (5) Hypertension Qualifiers: Hypertension type: essential hypertension Qualified Code(s): I10 - Essenti al (primary) hypertension Is this a current diagnosis for this admission?: Yes Plan: Continue her home medication (6) Hypothyroidism (acquired) Is this a current diagnosis for this admission?: Yes Plan: Continue Synthroid (7) Diastolic CHF, chronic Is this a current diagnosis for this admission?: Yes Plan: Compensated. (8) Hyperlipidemia Qualifiers: Hyperlipidemia type: unspecified Qualified Code(s): E78.5 - Hyperlipidemia, unspecified Is this a current diagnosis for this admission?: Yes Plan: Continue home medication (9) Chronic anemia Is this a current diagnosis for this admission?: Yes Plan: Etiology unclear. Most probably due to anemia of chronic disease. We will do stool for occult blood.
[2018-12-10] MEDS ORDERED: FUROSEMIDE INJ/PF 40 MG/4 ML SDV IV ONE (11:30)
[2018-12-10 13:59] LABS: PATH REVIEW PATHOLOGIST REVIEWED
[2018-12-10] MEDS: NORMAL SALINE 1000 ML 1,000 ML IV PRN (14:00)
[2018-12-11] MEDS: IPRATROPIUM/ALBUTEROL 0.5-2.5 MG/3 ML AMPUL NEB SCH ×6 (00:54→20:18)
[2018-12-11] MEDS: METHYLPREDNISOLONE INJ 40 MG/1 ML SDV IV SCH ×3 (01:05→17:22)
[2018-12-11] MEDS: MEROPENEM 500 MG in NORMAL SALINE 50 ML IV SCH ×3 (01:05→17:22)
[2018-12-11] MEDS: HEPARIN SOD (PORCINE) 5,000 UNIT/ML 1 ML SYRINGE SUBCUT SCH ×3 (05:14→22:42)
[2018-12-11 05:16] LABS: HEMATOCRIT 24.9 % (36.0-47.0); HEMOGLOBIN 8.4 g/dL (12.0-15.5); MEAN CORPUSCULAR HEMOGLOBIN 32.4 pg (27.0-33.4); MEAN CORPUSCULAR HGB CONC 33.8 g/dL (32.0-36.0); MEAN CORPUSCULAR VOLUME 96 fl (80-97); PLATELET COUNT 269 10^3/uL (150-450); RED CELL DISTRIBUTION WIDTH 15.8 % (11.5-14.0); WHITE BLOOD COUNT 9.3 10^3/uL (4.0-10.5)
[2018-12-11 05:25] LABS: ANION GAP 7 (5-19); BLOOD UREA NITROGEN 31 mg/dL (7-20); CALCIUM 8.8 mg/dL (8.4-10.2); CARBON DIOXIDE 34 mmol/L (22-30); CHLORIDE 101 mmol/L (98-107); GLUCOSE 170 mg/dL (75-110); POTASSIUM 4.5 mmol/L (3.6-5.0); SODIUM 141.8 mmol/L (137-145)
[2018-12-11] MEDS: NORMAL SALINE 1000 ML 1,000 ML IV PRN ×2 (05:30→17:41)
[2018-12-11 06:30] LABS: ABSOLUTE LYMPHOCYTES# (MANUAL) 0.6 10^3/uL (0.5-4.7); ABSOLUTE MONOCYTES # (MANUAL) 0.3 10^3/uL (0.1-1.4); ABSOLUTE NEUTROPHILS# (MANUAL) 8.4 10^3/uL (1.7-8.2); BASOPHILS % (MANUAL) 1 % (0-2); EOSINOPHILS % (MANUAL) 0 % (0-6); LYMPHOCYTES % (MANUAL) 6 % (13-45); MONOCYTES % (MANUAL) 3 % (3-13); SEGMENTED NEUTROPHILS % (MAN) 90 % (42-78); TOTAL CELLS COUNTED 100
[2018-12-11 06:31] LABS: POLYCHROMASIA SLIGHT
[2018-12-11 06:32] LABS: ANISOCYTOSIS SLIGHT; OVALOCYTES SLIGHT; PLATELET COMMENT ADEQUATE; STOMATOCYTES SLIGHT; TEAR DROP CELLS SLIGHT
[2018-12-11] MEDS: DOCUSATE SODIUM 100 MG/10 ML UDC PO SCH ×2 (08:43→17:17)
[2018-12-11] MEDS: TIOTROPIUM BROMIDE DPI 5 CAP/KIT (18 MCG/CAP) IH SCH ×2 (08:43→17:28)
[2018-12-11] MEDS: FAMOTIDINE 20 MG TABLET PO SCH ×3 (08:43→22:42)
--- NOTE | 2018-12-11 12:29 | PDOC PROGRESS REPORT ---
Subjective Progress Note for:: 12/11/18 Subjective:: 73 year old female patient with multiple comorbidities including history of lung cancer with metastasis to the brain. CHF diastolic, coronary artery disease, hypertension, hyperlipidemia, COPD, hypothyroidism, chronic respiratory failure O2 dependent 20/02 presents with chief complaint of lower abdominal pain and shortness of breath. Complains of crampy pain localized to her bladder area. Patient was seen 3 days ago at this hospital where her urine culture grew E. coli ESBL and at that time sputum culture also done and it grew Pseudomonas aeruginosa which is pansensitive. Patient denies any chills, fever, chest pain, palpitation or diaphoresis. She has underlying chronic cough and shortness of breath. Her initial blood work is unremarkable except for hemoglobin of 8.8 and creatinine of 1.64. Her chest x-ray reported as stable. Patient has been treated as outpatient with Levaquin and Macrobid by her primary care physician for 3 days and patient stated she was having hallucinations while taking the above-mentioned medications. When I evaluate the patient patient has marketed suprapubic tenderness. 12/11/2018-patient is comfortably in the bed sleeping. Patient appetite is very poor breakfast is at bedside. Woke up and calling communicating okay. Not in distress. I spoke to the patient's daughter who has the power of kilnman and she said her mom's wishes are DNR. But if she goes into respiratory failure she wants her to be intubated. No acute events in the last 24 hours afebrile. Urine culture came back positive for ESBL and contact isolation. Presently patient is on meropenem. I spoke to patient's daughter who is the power of kilnman she denies that her mom had mets in the brain. Recent CT head and MRI of the head reviewed there is no evidence of mets in those investigations. The daughter thought lung cancer spread to the kidneys are reviewed abdomen/pelvis CT there is no mentioning of any renal masses by the radiologist. Reason For Visit: COMPLICATED UTI. ACUTE KIDNEY INJURY. Physical Exam Vital Signs: Temp Pulse Resp BP Pulse Ox 98.2 F 98 18 133/73 H 93 12/11/18 08:40 12/11/18 08:53 12/11/18 08:53 12/11/18 08:40 12/11/18 08:53 Intake & Output 12/10/18 12/11/1819 06:59 06:59 06:59 Intake Total 1270 3222 50 Output Total 1200 1375 Balance 70 1847 50 Weight 79.9 kg 77.7 kg General appearance: PRESENT: no acute distress Head exam: PRESENT: atraumatic Eye exam: PRESENT: PERRLA Ear exam: PRESENT: normal external ear exam Neck exam: ABSENT: carotid bruit, JVD, lymphadenopathy, thyromegaly Respiratory exam: PRESENT: decreased breath sounds. ABSENT: rales, rhonchi, wheezes Cardiovascular exam: PRESENT: RRR. ABSENT: diastolic murmur, rubs, systolic murmur GI/Abdominal exam: PRESENT: normal bowel sounds, soft. ABSENT: distended, guarding, mass, organolmegaly, rebound, tenderness Rectal exam: PRESENT: deferred Gentrourinary exam: PRESENT: indwelling catheter Neurological exam: PRESENT: alert, awake, oriented to person, oriented to place, oriented to time, oriented to situation, CN II-XII grossly intact. ABSENT: motor sensory deficit Psychiatric exam: PRESENT: appropriate affect, normal mood. ABSENT: homicidal ideation, suicidal ideation Results Laboratory Results: 12/11/18 04:30 12/11/18 04:30 12/10/18 12/11/18 12/11/18 15:00 04:30 04:30 WBC 9.3 RBC 2.60 L Hgb 8.4 L Hct 24.9 L MCV 96 MCH 32.4 MCHC 33.8 RDW 15.8 H Plt Count 269 Seg Neutrophils % Not Reportable Lymphocytes % Not Reportable Monocytes % Not Reportable Eosinophils % Not Reportable Basophils % Not Reportable Absolute Neutrophils Not Reportable Absolute Lymphocytes Not Reportable Absolute Monocytes Not Reportable Absolute Eosinophils Not Reportable Absolute Basophils Not Reportable Sodium 141.8 Potassium 4.5 Chloride 101 Carbon Dioxide 34 H Anion Gap 7 BUN 31 H Creatinine 1.34 H Est GFR ( Amer) 47 L Est GFR (Non-Af Amer) 39 L Glucose 170 H Calcium 8.8 Stool Occult Blood NEGATIVE 12/09/18 18:49 Catheterized Urine Urine Culture - Final Escherichia Coli Esbl Impressions: Chest X-Ray 12/09/18 15:57 IMPRESSION: Stable chest. Abdomen/Pelvis CT 12/09/18 17:25 IMPRESSION: 1. Allowing for slight nonspecific right hydronephrosis, negative for acute abnormality. No obstructing stones. 2. Sidhu catheter is well within the bladder and has a coiled appearance. This could perhaps be adjusted, pulled back some. Assessment and Plan - Diagnosis (1) MARY LOU (acute kidney injury) Is this a current diagnosis for this admission?: Yes Plan: 12/11/2018-patient admitted with acute kidney injury latest creatinine is 1.34. Creatinine on admission is 1.64. Acute kidney injury is resolving. Patient baseline creatinine is around 1.0. Patient is receiving IV fluids and her appetite is very poor. Acute kidney injury may be secondary to poor oral intake or UTI. (2) Complicated UTI (urinary tract infection) Is this a current diagnosis for this admission?: Yes Plan: Continue current antibiotics. 12/11/2018-urine culture came back positive for ESBL. ESBL E. coli. On m eropenem. Afebrile. Plan is to continue the present management. (3) Chronic respiratory failure due to COPD Is this a current diagnosis for this admission?: Yes Plan: Keep the patient on supplemental oxygen and was started on bronchodilator and Solu-Medrol since patient has been on prednisone 12/11/2018-patient has history of COPD and lung cancer. Acute respiratory failure most likely secondary to COPD/lung cancer. Pulse ox on 2 L is 97%. (4) Coronary artery disease Qualifiers: Coronary Disease-Associated Artery/Lesion type: [place] artery Is this a current diagnosis for this admission?: Yes Plan: No anginal symptoms we will continue her home medication. (5) Hypertension Qualifiers: Hypertension type: essential hypertension Qualified Code(s): I10 - Essential (primary) hypertension Is this a current diagnosis for this admission?: Yes Plan: Continue her home medication 12/11/2018-patient blood pressure is 132/78. Stable. Plan is to continue the present management. Presently she is off the antihypertensives. (6) Diastolic CHF, chronic Is this a current diagnosis for this admission?: Yes Plan: Compensated. 12/11/2018-patient has history of chronic diastolic congestive heart failure. Patient is euvolemic. (7) Chronic anemia Is this a current diagnosis for this admission?: Yes Plan: Etiology unclear. Most probably due to anemia of chronic disease. We will do stool for occult blood. 12/11/2018-patient has history of anemia of chronic disease. Hemoglobin is 8.4. Stable. - Time Time Spent with patient: 25-34 minutes Medications reviewed and adjusted accordingly: Yes Anticipated discharge: Home
[2018-12-11] MEDS ORDERED: ALBUTEROL SULFATE 0.083% NEB 2.5 MG/3 ML AMPUL NEB PRN (17:53)
[2018-12-11] MEDS: ONDANSETRON HCL INJ/PF 4 MG/2 ML SDV IV PRN (19:47)
[2018-12-11] MEDS ORDERED: IPRATROPIUM/ALBUTEROL 0.5-2.5 MG/3 ML AMPUL NEB SCH (20:00)
[2018-12-11] MEDS ORDERED: (PENDING PHARMACY ID) (Fluticasone/Salmeterol 1 PUFF) IH SCH (22:00)
[2018-12-11] MEDS: NYSTATIN CREAM 15 GM TOP SCH (22:43)
[2018-12-12] MEDS: IPRATROPIUM/ALBUTEROL 0.5-2.5 MG/3 ML AMPUL NEB SCH ×6 (00:19→20:23)
[2018-12-12] MEDS: MEROPENEM 500 MG in NORMAL SALINE 50 ML IV SCH ×3 (03:18→17:31)
[2018-12-12] MEDS: METHYLPREDNISOLONE INJ 40 MG/1 ML SDV IV SCH ×3 (03:18→17:30)
[2018-12-12] MEDS: ACETAMINOPHEN 325 MG TABLET PO PRN ×2 (04:58→18:21)
[2018-12-12] MEDS ORDERED: LEVOTHYROXINE SODIUM 0.05 MG TABLET PO SCH (06:00)
[2018-12-12 06:08] LABS: ANION GAP 9 (5-19); BLOOD UREA NITROGEN 33 mg/dL (7-20); CALCIUM 8.8 mg/dL (8.4-10.2); CARBON DIOXIDE 30 mmol/L (22-30); CHLORIDE 105 mmol/L (98-107); GLUCOSE 205 mg/dL (75-110); POTASSIUM 4.6 mmol/L (3.6-5.0); SODIUM 144.4 mmol/L (137-145)
[2018-12-12] MEDS: LEVOTHYROXINE SODIUM 0.1 MG TABLET PO SCH (06:45)
[2018-12-12] MEDS: HEPARIN SOD (PORCINE) 5,000 UNIT/ML 1 ML SYRINGE SUBCUT SCH ×3 (06:45→21:07)
[2018-12-12] MEDS: DOCUSATE SODIUM 100 MG/10 ML UDC PO SCH ×2 (09:33→17:18)
[2018-12-12] MEDS: NORMAL SALINE 1000 ML 1,000 ML IV PRN ×2 (09:40→21:19)
--- NOTE | 2018-12-12 09:41 | PDOC PROGRESS REPORT ---
Subjective Progress Note for:: 12/12/18 Subjective:: 73 year old female patient with multiple comorbidities including history of lung cancer with metastasis to the brain. CHF diastolic, coronary artery disease, hypertension, hyperlipidemia, COPD, hypothyroidism, chronic respiratory failure O2 dependent 20/02 presents with chief complaint of lower abdominal pain and shortness of breath. Complains of crampy pain localized to her bladder area. Patient was seen 3 days ago at this hospital where her urine culture grew E. coli ESBL and at that time sputum culture also done and it grew Pseudomonas aeruginosa which is pansensitive. Patient denies any chills, fever, chest pain, palpitation or diaphoresis. She has underlying chronic cough and shortness of breath. Her initial blood work is unremarkable except for hemoglobin of 8.8 and creatinine of 1.64. Her chest x-ray reported as stable. Patient has been treated as outpatient with Levaquin and Macrobid by her primary care physician for 3 days and patient stated she was having hallucinations while taking the above-mentioned medications. When I evaluate the patient patient has marketed suprapubic tenderness. 12/11/2018-patient is comfortably in the bed sleeping. Patient appetite is very poor breakfast is at bedside. Woke up and calling communicating okay. Not in distress. I spoke to the patient's daughter who has the power of privacy attorney and she said her mom's wishes are DNR. But if she goes into respiratory failure she wants her to be intubated. No acute events in the last 24 hours afebrile. Urine culture came back positive for ESBL and contact isolation. Presently patient is on meropenem. I spoke to patient's daughter who is the power of privacy attorney she denies that her mom had mets in the brain. Recent CT head and MRI of the head reviewed there is no evidence of mets in those investigations. The daughter thought lung cancer spread to the kidneys are reviewed abdomen/pelvis CT there is no mentioning of any renal masses by the radiologist. 12/12/2018-no acute events in the last 24 hours. Patient is afebrile. Patient's daughter who has the power of privacy attorney wants DNR but at the same time requesting intubation if necessary. Patient is sleepy most of the time her appetite is very poor breakfast is still at bedside. Reason For Visit: COMPLICATED UTI. ACUTE KIDNEY INJURY. Physical Exam Vital Signs: Temp Pulse Resp BP Pulse Ox 97.8 F 105 H 20 152/82 H 100 12/12/18 08:32 12/12/18 08:32 12/12/18 08:32 12/12/18 08:32 12/12/18 08:32 Intake & Output 12/11/18 12/12/18 12/13/18 06:59 06:59 06:59 Intake Total 3222 1536 Output Total 1375 800 Balance 1847 736 Weight 77.7 kg 82.2 kg General appearance: PRESENT: no acute distress, other - Sleepy most of the time Head exam: PRESENT: atraumatic Eye exam: PRESENT: PERRLA Mouth exam: PRESENT: moist, tongue midline Teeth exam: PRESENT: poor dentation Neck exam: ABSENT: carotid bruit, JVD, lymphadenopathy, thyromegaly Respiratory exam: PRESENT: decreased breath sounds Cardiovascular exam: PRESENT: RRR. ABSENT: diastolic murmur, rubs, systolic murmur GI/Abdominal exam: PRESENT: normal bowel sounds, soft. ABSENT: distended, guarding, mass, organolmegaly, rebound, tenderness Rectal exam: PRESENT: deferred Extremities exam: PRESENT: full ROM. ABSENT: calf tenderness, clubbing, pedal edema Neurological exam: PRESENT: other - Sleepy responding to verbal commands no focal neurological deficits. Results Laboratory Results: 12/11/18 04:30 12/12/18 05:22 12/12/18 05:22 Sodium 144.4 Potassium 4.6 Chloride 105 Carbon Dioxide 30 Anion Gap 9 BUN 33 H Creatinine 1.19 Est GFR ( Amer) 54 L Est GFR (Non-Af Amer) 44 L Glucose 205 H Calcium 8.8 12/09/18 18:49 Catheterized Urine Urine Culture - Final Escherichia Coli Esbl Impressions: Chest X-Ray 12/09/18 15:57 IMPRESSION: Stable chest. Abdomen/Pelvis CT 12/09/18 17:25 IMPRESSION: 1. Allowing for slight nonspecific right hydronephrosis, negative for acute abnormality. No obstructing stones. 2. Sidhu catheter is well within the bladder and has a coiled appearance. This could perhaps be adjusted, pulled back some. Assessment and Plan - Diagnosis (1) MARY LOU (acute kidney injury) Is this a current diagnosis for this admission?: Yes Plan: 12/11/2018-patient admitted with acute kidney injury latest creatinine is 1.34. Creatinine on admission is 1.64. Acute kidney injury is resolving. Patient baseline creatinine is around 1.0. Patient is receiving IV fluids and her appetite is very poor. Acute kidney injury may be secondary to poor oral intake or UTI. 12/12/2018-creatinine today is 1.19 improved from yesterday. On admission creat inine is 1.64. Acute kidney injury most likely secondary to poor oral intake is resolving. pt is presently on IV fluids normal saline at 50 cc/h. (2) Complicated UTI (urinary tract infection) Is this a current diagnosis for this admission?: Yes Plan: Continue current antibiotics. 12/11/2018-urine culture came back positive for ESBL. ESBL E. coli. On meropenem. Afebrile. Plan is to continue the present management. 12/12/2018-urine culture is positive for ESBL E. coli. Presently on meropenem. Afebrile. (3) Chronic respiratory failure due to COPD Is this a current diagnosis for this admission?: Yes Plan: Keep the patient on supplemental oxygen and was started on bronchodilator and Solu-Medrol since patient has been on prednisone 12/11/2018-patient has history of COPD and lung cancer. Acute respiratory failure most likely secondary to COPD/lung cancer. Pulse ox on 2 L is 97%. 12/12/2018-patient has history of COPD and lung cancer admitted with chronic respiratory failure due to COPD pulse ox is 100% on 2.5 L. On examination chest bilateral entry was decreased no wheezing no crepitations. (4) Coronary artery disease Qualifiers: Coronary Disease-Associated Artery/Lesion type: [place] artery Is this a current diagnosis for this admission?: Yes Plan: No anginal symptoms we will continue her home medication. (5) Hypertension Qualifiers: Hypertension type: essential hypertension Qualified Code(s): I10 - Essential (primary) hypertension Is this a current diagnosis for this admission?: Yes Plan: Continue her home medication 12/11/2018-patient blood pressure is 132/78. Stable. Plan is to continue the present management. Presently she is off the antihypertensives. 12/12/2018-blood pressure today's 150/96. Slightly elevated. Presently she is is not on any blood pressure medications. (6) Diastolic CHF, chronic Is this a current diagnosis for this admission?: Yes Plan: Compensated. 12/11/2018-patient has history of chronic diastolic congestive heart failure. Patient is euvolemic. (7) Chronic anemia Is this a current diagnosis for this admission?: Yes Plan: Etiology unclear. Most probably due to anemia of chronic disease. We will do stool for occult blood. 12/11/2018-patient has history of anemia of chronic disease. Hemoglobin is 8.4. Stable. 12/12/2018-patient hemoglobin 8.4 stable. - Time Time Spent with patient: 15-24 minutes Medications reviewed and adjusted accordingly: Yes Anticipated discharge: Home
[2018-12-12] MEDS: NYSTATIN CREAM 15 GM TOP SCH ×2 (09:44→21:07)
[2018-12-12] MEDS: METOPROLOL SUCCINATE 25 MG TAB.SR.24H PO SCH (09:45)
[2018-12-12] MEDS: POTASSIUM CHLORIDE 10 MEQ CAPSULE.ER PO SCH (09:45)
[2018-12-12] MEDS: MULTIVITAMIN TABLET PO SCH (09:45)
[2018-12-12] MEDS: FLUTICASONE/VILANTEROL 200-25 MCG/DOSE IH SCH (09:46)
[2018-12-12] MEDS: FAMOTIDINE 20 MG TABLET PO SCH ×2 (09:46→21:07)
[2018-12-12] MEDS: TIOTROPIUM BROMIDE DPI 5 CAP/KIT (18 MCG/CAP) IH SCH (09:50)
[2018-12-12] MEDS ORDERED: TIOTROPIUM BROMIDE DPI 5 CAP/KIT (18 MCG/CAP) IH SCH (10:00)
[2018-12-12] MEDS: ONDANSETRON HCL INJ/PF 4 MG/2 ML SDV IV PRN (17:37)
[2018-12-13] MEDS: IPRATROPIUM/ALBUTEROL 0.5-2.5 MG/3 ML AMPUL NEB SCH ×2 (00:19→04:27)
[2018-12-13] MEDS: METHYLPREDNISOLONE INJ 40 MG/1 ML SDV IV SCH ×3 (01:20→21:08)
[2018-12-13] MEDS: MEROPENEM 500 MG in NORMAL SALINE 50 ML IV SCH ×3 (01:21→17:21)
[2018-12-13] MEDS: LEVOTHYROXINE SODIUM 0.1 MG TABLET PO SCH (05:50)
[2018-12-13] MEDS: HEPARIN SOD (PORCINE) 5,000 UNIT/ML 1 ML SYRINGE SUBCUT SCH ×3 (05:50→21:08)
[2018-12-13] MEDS ORDERED: HYDRALAZINE HCL INJ/PF 20 MG/1 ML SDV IV PRN (07:33)
[2018-12-13] MEDS: LEVALBUTEROL HCL NEB 1.25 MG/3 ML AMPUL NEB PRN ×2 (08:29→23:42)
--- NOTE | 2018-12-13 08:31 | RADIOLOGY REPORT (SQ) ---
EXAM DESCRIPTION: CHEST SINGLE VIEW COMPLETED DATE/TIME: 12/13/2018 8:05 am REASON FOR STUDY: resp distress COMPARISON: 12/09/2018 NUMBER OF VIEWS: One view. TECHNIQUE: Single frontal radiographic image of the chest acquired. LIMITATIONS: None. FINDINGS: LUNGS AND PLEURA: No infiltrate. No large effusions. MEDIASTINUM AND HEART: Stable heart size and mediastinal structures. BONY STRUCTURES: No acute findings. HARDWARE: None. OTHER: No other significant finding. IMPRESSION: STABLE APPEARANCE OF THE CHEST. TECHNICAL DOCUMENTATION: JOB ID: [id number] Reading location - IP/workstation name: [email or web address]
[2018-12-13 09:39] LABS: HEMATOCRIT 29.4 % (36.0-47.0); HEMOGLOBIN 9.7 g/dL (12.0-15.5); MEAN CORPUSCULAR HEMOGLOBIN 31.8 pg (27.0-33.4); MEAN CORPUSCULAR VOLUME 97 fl (80-97); PLATELET COUNT 383 10^3/uL (150-450); RED BLOOD COUNT 3.04 10^6/uL (3.72-5.28); RED CELL DISTRIBUTION WIDTH 16.3 % (11.5-14.0); WHITE BLOOD COUNT 16.8 10^3/uL (4.0-10.5)
--- NOTE | 2018-12-13 09:39 | PDOC PROGRESS REPORT ---
Subjective Progress Note for:: 12/13/18 Subjective:: 73 year old female patient with multiple comorbidities including history of lung cancer with metastasis to the brain. CHF diastolic, coronary artery disease, hypertension, hyperlipidemia, COPD, hypothyroidism, chronic respiratory failure O2 dependent 20/02 presents with chief complaint of lower abdominal pain and shortness of breath. Complains of crampy pain localized to her bladder area. Patient was seen 3 days ago at this hospital where her urine culture grew E. coli ESBL and at that time sputum culture also done and it grew Pseudomonas aeruginosa which is pansensitive. Patient denies any chills, fever, chest pain, palpitation or diaphoresis. She has underlying chronic cough and shortness of breath. Her initial blood work is unremarkable except for hemoglobin of 8.8 and creatinine of 1.64. Her chest x-ray reported as stable. Patient has been treated as outpatient with Levaquin and Macrobid by her primary care physician for 3 days and patient stated she was having hallucinations while taking the above-mentioned medications. When I evaluate the patient patient has marketed suprapubic tenderness. 12/11/2018-patient is comfortably in the bed sleeping. Patient appetite is very poor breakfast is at bedside. Woke up and calling communicating okay. Not in distress. I spoke to the patient's daughter who has the power of environmental attorney and she said her mom's wishes are DNR. But if she goes into respiratory failure she wants her to be intubated. No acute events in the last 24 hours afebrile. Urine culture came back positive for ESBL and contact isolation. Presently patient is on meropenem. I spoke to patient's daughter who is the power of environmental attorney she denies that her mom had mets in the brain. Recent CT head and MRI of the head reviewed there is no evidence of mets in those investigations. The daughter thought lung cancer spread to the kidneys are reviewed abdomen/pelvis CT there is no mentioning of any renal masses by the radiologist. 12/12/2018-no acute events in the last 24 hours. Patient is afebrile. Patient's daughter who has the power of environmental attorney wants DNR but at the same time requesting intubation if necessary. Patient is sleepy most of the time her appetite is very poor breakfast is still at bedside. 12/13/2018-patient's blood pressure this morning systolic is more than 200 in the 20s and a heart rate went up to more than 120 she was started on hydralazine 10 mg IV every 4 as needed latest blood pressure is 170/107 patient complains of nausea we are going to give nausea medication heart rate come down to 100. Chest x-ray done this morning negative for acute pathology. On examination chest bilateral entry was decreased mild wheezing is present in bilateral lung curtis. Lab work with this morning is pending. Reason For Visit: COMPLICATED UTI. ACUTE KIDNEY INJURY. Physical Exam Vital Signs: Temp Pulse Resp BP Pulse Ox 97.4 F 107 H 18 177/107 H 91 L 12/13/18 07:28 12/13/18 08:13 12/13/18 04:27 12/13/18 08:13 12/13/18 07:28 Intake & Output 12/12/18 12/13/18 12/14/18 06:59 06:59 06:59 Intake Total 1536 3095 215 Output Total 800 1075 Balance 736 2020 215 Weight 82.2 kg 83.8 kg General appearance: PRESENT: mild distress Head exam: PRESENT: atraumatic Eye exam: PRESENT: PERRLA Ear exam: PRESENT: normal external ear exam Mouth exam: PRESENT: moist, tongue midline Teeth exam: PRESENT: poor dentation Neck exam: ABSENT: carotid bruit, JVD, lymphadenopathy, thyromegaly Respiratory exam: PRESENT: decreased breath sounds, wheezes Cardiovascular exam: PRESENT: RRR. ABSENT: diastolic murmur, rubs, systolic murmur GI/Abdominal exam: PRESENT: normal bowel sounds, soft. ABSENT: distended, guarding, mass, organolmegaly, rebound, tenderness Rectal exam: PRESENT: deferred Neurological exam: PRESENT: alert, awake, oriented to person, oriented to place, oriented to time, oriented to situation, CN II-XII grossly intact. ABSENT: motor sensory deficit Psychiatric exam: PRESENT: agitated, anxious Results Impressions: Abdomen/Pelvis CT 12/09/18 17:25 IMPRESSION: 1. Allowing for slight nonspecific right hydronephrosis, negative for acute abnormality. No obstructing stones. 2. Sidhu catheter is well within the bladder and has a coiled appearance. This could perhaps be adjusted, pulled back some. Chest X-Ray 12/13/18 00:00 IMPRESSION: STABLE APPEARANCE OF THE CHEST. Assessment and Plan - Diagnosis (1) MARY LOU (acute kidney injury) Is this a current diagnosis for this admission?: Yes Plan: 12/11/2018-patient admitted with acute kidney injury latest creatinine is 1.34. Creatinine on admission is 1.64. Acute kidney injury is resolving. Patient baseline creatinine is around 1.0. Patient is receiving IV fluids and her appetite is very poor. Acute kidney injury may be secondary to poor oral intake or UTI. 12/12/2018-creatinine today is 1.19 improved from yesterday. On admission creatinine is 1.64. Acute kidney injury most likely secondary to poor oral intake is resolving. pt is presently on IV fluids normal saline at 50 cc/h. 12/13/2018-lab work today is pending and creatinine from yesterday is 1.19. Admitted with creatinine of 1.64 acute kidney injury is resolving. Because of the high blood pressures normal saline is discontinued this morning. (2) Complicated UTI (urinary tract infection) Is this a current diagnosis for this admission?: Yes Plan: Continue current antibiotics. 12/11/2018-urine culture came back positive for ESBL. ESBL E. coli. On meropenem. Afebrile. Plan is to continue the present management. 12/12/2018-urine culture is positive for ESBL E. coli. Presently on meropenem. Afebrile. 12/13/2018-urine culture is positive for ESBL E. coli presently on meropenem afebrile. Plan is to continue the management for now. (3) Chronic respiratory failure due to COPD Is this a current diagnosis for this admission?: Yes Plan: Keep the patient on supplemental oxygen and was started on bronchodilator and Solu-Medrol since patient has been on prednisone 12/11/2018-patient has history of COPD and lung cancer. Acute respiratory failure most likely secondary to COPD/lung cancer. Pulse ox on 2 L is 97%. 12/12/2018-patient has history of COPD and lung cancer admitted with chronic respiratory failure due to COPD pulse ox is 100% on 2.5 L. On examination chest bilateral entry was decreased no wheezing no crepitations. 5 01/13/2019-patient has history of COPD, lung cancer admitted with acute on chronic respiratory failure secondary to COPD. Pulse ox today is percent on 4 L. Examination chest bilateral entry was decreased bilateral mild wheezing is present. X-ray done this morning negative for acute pathology. (4) Coronary artery disease Qualifiers: Coronary Disease-Associated Artery/Lesion type: [place] artery Is this a current diagnosis for this admission?: Yes Plan: No anginal symptoms we will continue her home medication. 12/13/2018-patient denies any chest pains. Presently on her home medications. (5) Hypertension Qualifiers: Hypertension type: essential hypertension Qualified Code(s): I10 - Essential (primary) hypertension Is this a current diagnosis for this admission?: Yes Plan: Continue her home medication 12/11/2018-patient blood pressure is 132/78. Stable. Plan is to continue the present management. Presently she is off the antihypertensives. 12/12/2018-blood pressure today's 150/96. Slightly elevated. Presently she is is not on any blood pressure medications. 12/13/2018-latest blood pressure was 170/107 on metoprolol 25 mg p.o. daily, hydralazine 10 mg IV every 4 as needed initiated. (6) Diastolic CHF, chronic Is this a current diagnosis for this admission?: Yes Plan: Compensated. 12/11/2018-patient has history of chronic diastolic congestive heart failure. Patient is euvolemic. 12/13/2018-patient has history of chronic diastolic heart failure. Plan to restart on Lasix 20 mg p.o. daily from today. Patient still looks euvolemic. But the blood pressures are significantly elevated this morning. (7) Chronic anemia Is this a current diagnosis for this admission?: Yes Plan: Etiology unclear. Most probably due to anemia of chronic disease. We will do stool for occult blood. 12/11/2018-patient has history of anemia of chronic disease. Hemoglobin is 8.4. Stable. 12/12/2018-patient hemoglobin 8.4 stable. 12/13/2018-patient's latest hemoglobin is 8.4 today's labs are pending. - Time Time Spent with patient: 15-24 minutes Smoking Cessation Education: over 10 minutes Medications reviewed and adjusted accordingly: Yes Anticipated discharge: SNF
[2018-12-13] MEDS: DOCUSATE SODIUM 100 MG CAPSULE PO SCH ×2 (09:44→17:16)
[2018-12-13] MEDS: POTASSIUM CHLORIDE 10 MEQ CAPSULE.ER PO SCH ×2 (09:44→10:06)
[2018-12-13] MEDS: ONDANSETRON HCL INJ/PF 4 MG/2 ML SDV IV PRN (09:44)
[2018-12-13] MEDS: METOPROLOL SUCCINATE 25 MG TAB.SR.24H PO SCH ×2 (09:45→14:07)
[2018-12-13] MEDS: FAMOTIDINE 20 MG TABLET PO SCH ×3 (09:45→21:08)
[2018-12-13] MEDS: NYSTATIN CREAM 15 GM TOP SCH ×2 (09:48→21:11)
[2018-12-13] MEDS: MULTIVITAMIN TABLET PO SCH ×2 (09:48→10:05)
[2018-12-13] MEDS: TIOTROPIUM BROMIDE DPI 5 CAP/KIT (18 MCG/CAP) IH SCH (09:49)
[2018-12-13] MEDS: FLUTICASONE/VILANTEROL 200-25 MCG/DOSE IH SCH (09:49)
[2018-12-13 10:00] LABS: ALANINE AMINOTRANSFERASE 40 U/L (9-52); ALBUMIN 3.3 g/dL (3.5-5.0); ALKALINE PHOSPHATASE 62 U/L (38-126); ANION GAP 7 (5-19); ASPARTATE AMINO TRANSFERASE 28 U/L (14-36); BILIRUBIN,DIRECT 0.2 mg/dL (0.0-0.4); BILIRUBIN,TOTAL 0.3 mg/dL (0.2-1.3); BLOOD UREA NITROGEN 35 mg/dL (7-20); CALCIUM 8.8 mg/dL (8.4-10.2); CARBON DIOXIDE 28 mmol/L (22-30); CHLORIDE 106 mmol/L (98-107); GLUCOSE 192 mg/dL (75-110); POTASSIUM 5.1 mmol/L (3.6-5.0); SODIUM 140.7 mmol/L (137-145); TOTAL PROTEIN 5.6 g/dL (6.3-8.2)
[2018-12-13 10:07] LABS: ABSOLUTE LYMPHOCYTES# (MANUAL) 1.5 10^3/uL (0.5-4.7); ABSOLUTE NEUTROPHILS# (MANUAL) 14.3 10^3/uL (1.7-8.2); BAND NEUTROPHILS % (MANUAL) 2 % (3-5); BASOPHILS % (MANUAL) 0 % (0-2); EOSINOPHILS % (MANUAL) 0 % (0-6); LYMPHOCYTES % (MANUAL) 9 % (13-45); MONOCYTES % (MANUAL) 6 % (3-13); NUCLEATED RED BLOOD CELLS 1 /100 WBC (0); SEGMENTED NEUTROPHILS % (MAN) 83 % (42-78); TOTAL CELLS COUNTED 100
[2018-12-13 10:08] LABS: ANISOCYTOSIS SLIGHT; OVALOCYTES SLIGHT; PLATELET COMMENT ADEQUATE; POIKILOCYTOSIS SLIGHT
[2018-12-13] MEDS: ACETAMINOPHEN 325 MG TABLET PO PRN (17:21)
[2018-12-14] MEDS: MEROPENEM 500 MG in NORMAL SALINE 50 ML IV SCH ×3 (01:33→18:48)
[2018-12-14] MEDS: HEPARIN SOD (PORCINE) 5,000 UNIT/ML 1 ML SYRINGE SUBCUT SCH ×3 (05:29→21:08)
[2018-12-14] MEDS: LEVOTHYROXINE SODIUM 0.1 MG TABLET PO SCH (05:30)
[2018-12-14 09:17] LABS: HEMATOCRIT 29.9 % (36.0-47.0); MEAN CORPUSCULAR HEMOGLOBIN 32.5 pg (27.0-33.4); MEAN CORPUSCULAR HGB CONC 33.6 g/dL (32.0-36.0); MEAN CORPUSCULAR VOLUME 97 fl (80-97); PLATELET COUNT 340 10^3/uL (150-450); RED BLOOD COUNT 3.09 10^6/uL (3.72-5.28); RED CELL DISTRIBUTION WIDTH 16.5 % (11.5-14.0); WHITE BLOOD COUNT 12.7 10^3/uL (4.0-10.5)
[2018-12-14 09:37] LABS: ABSOLUTE LYMPHOCYTES# (MANUAL) 1.1 10^3/uL (0.5-4.7); ABSOLUTE MONOCYTES # (MANUAL) 0.5 10^3/uL (0.1-1.4); BAND NEUTROPHILS % (MANUAL) 1 % (3-5); BASOPHILS % (MANUAL) 0 % (0-2); EOSINOPHILS % (MANUAL) 0 % (0-6); LYMPHOCYTES % (MANUAL) 9 % (13-45); METAMYELOCYTES % (MANUAL) 3 % (0); MONOCYTES % (MANUAL) 4 % (3-13); MYELOCYTES % (MANUAL) 1 % (0); NUCLEATED RED BLOOD CELLS 1 /100 WBC (0); SEGMENTED NEUTROPHILS % (MAN) 82 % (42-78); TOTAL CELLS COUNTED 100
[2018-12-14 09:38] LABS: ANISOCYTOSIS 1+; POLYCHROMASIA SLIGHT
[2018-12-14 09:39] LABS: PLATELET COMMENT ADEQUATE
--- NOTE | 2018-12-14 10:22 | PDOC PROGRESS REPORT ---
Subjective Progress Note for:: 12/14/18 Subjective:: 73 year old female patient with multiple comorbidities including history of lung cancer with metastasis to the brain. CHF diastolic, coronary artery disease, hypertension, hyperlipidemia, COPD, hypothyroidism, chronic respiratory failure O2 dependent 20/02 presents with chief complaint of lower abdominal pain and shortness of breath. Complains of crampy pain localized to her bladder area. Patient was seen 3 days ago at this hospital where her urine culture grew E. coli ESBL and at that time sputum culture also done and it grew Pseudomonas aeruginosa which is pansensitive. Patient denies any chills, fever, chest pain, palpitation or diaphoresis. She has underlying chronic cough and shortness of breath. Her initial blood work is unremarkable except for hemoglobin of 8.8 and creatinine of 1.64. Her chest x-ray reported as stable. Patient has been treated as outpatient with Levaquin and Macrobid by her primary care physician for 3 days and patient stated she was having hallucinations while taking the above-mentioned medications. When I evaluate the patient patient has marketed suprapubic tenderness. 12/11/2018-patient is comfortably in the bed sleeping. Patient appetite is very poor breakfast is at bedside. Woke up and calling communicating okay. Not in distress. I spoke to the patient's daughter who has the power of insurance defense attorney and she said her mom's wishes are DNR. But if she goes into respiratory failure she wants her to be intubated. No acute events in the last 24 hours afebrile. Urine culture came back positive for ESBL and contact isolation. Presently patient is on meropenem. I spoke to patient's daughter who is the power of insurance defense attorney she denies that her mom had mets in the brain. Recent CT head and MRI of the head reviewed there is no evidence of mets in those investigations. The daughter thought lung cancer spread to the kidneys are reviewed abdomen/pelvis CT there is no mentioning of any renal masses by the radiologist. 12/12/2018-no acute events in the last 24 hours. Patient is afebrile. Patient's daughter who has the power of insurance defense attorney wants DNR but at the same time requesting intubation if necessary. Patient is sleepy most of the time her appetite is very poor breakfast is still at bedside. 12/13/2018-patient's blood pressure this morning systolic is more than 200 in the 20s and a heart rate went up to more than 120 she was started on hydralazine 10 mg IV every 4 as needed latest blood pressure is 170/107 patient complains of nausea we are going to give nausea medication heart rate come down to 100. Chest x-ray done this morning negative for acute pathology. On examination chest bilateral entry was decreased mild wheezing is present in bilateral lung curtis. Lab work with this morning is pending. 12/14/2018-patient has one episode of emesis this morning. WBC count went up to 16,800 yesterday. Plan to do the KUB and repeat labs today. Presently on m eropenem for ESBL E. coli. She is in contact isolation. In my opinion patient needs to go to a rehab facility. Patient is afebrile. Reason For Visit: COMPLICATED UTI. ACUTE KIDNEY INJURY. Physical Exam Vital Signs: Temp Pulse Resp BP Pulse Ox 97.3 F 88 20 160/93 H 100 12/14/18 07:29 12/14/18 07:29 12/14/18 07:29 12/14/18 07:29 12/14/18 07:29 Intake & Output 12/13/18 12/14/18 12/15/18 06:59 06:59 06:59 Intake Total 3095 565 Output Total 1075 1250 Balance 2019 Weight 83.8 kg 83.9 kg General appearance: PRESENT: no acute distress, obese Head exam: PRESENT: atraumatic Eye exam: PRESENT: PERRLA Ear exam: PRESENT: normal external ear exam Mouth exam: PRESENT: moist, tongue midline Teeth exam: PRESENT: poor dentation Neck exam: ABSENT: carotid bruit, JVD, lymphadenopathy, thyromegaly Respiratory exam: PRESENT: clear to auscultation jeff. ABSENT: rales, rhonchi, wheezes Cardiovascular exam: PRESENT: systolic murmur, tachycardia GI/Abdominal exam: PRESENT: normal bowel sounds, soft. ABSENT: distended, guarding, mass, organolmegaly, rebound, tenderness Rectal exam: PRESENT: deferred Extremities exam: PRESENT: full ROM. ABSENT: calf tenderness, clubbing, pedal edema Neurological exam: PRESENT: alert, awake, oriented to person, oriented to place, oriented to time, oriented to situation, CN II-XII grossly intact. ABSENT: motor sensory deficit Psychiatric exam: PRESENT: appropriate affect, normal mood. ABSENT: homicidal ideation, suicidal ideation Results Laboratory Results: 12/14/18 09:00 12/13/18 09:10 12/14/18 12/14/18 09:00 09:00 WBC 12.7 H RBC 3.09 L Hgb 10.0 L Hct 29.9 L MCV 97 MCH 32.5 MCHC 33.6 RDW 16.5 H Plt Count 340 Seg Neutrophils % Not Reportable Lymphocytes % Not Reportable Monocytes % Not Reportable Eosinophils % Not Reportable Basophils % Not Reportable Absolute Neutrophils Not Reportable Absolute Lymphocytes Not Reportable Absolute Monocytes Not Reportable Absolute Eosinophils Not Reportable Absolute Basophils Not Reportable Magnesium 2.5 H Impressions: Abdomen/Pelvis CT 12/09/18 17:25 IMPRESSION: 1. Allowing for slight nonspecific right hydronephrosis, negative for acute abnormality. No obstructing stones. 2. Sidhu catheter is well within the bladder and has a coiled appearance. This could perhaps be adjusted, pulled back some. Chest X-Ray 12/13/18 00:00 IMPRESSION: STABLE APPEARANCE OF THE CHEST. Assessment and Plan - Diagnosis (1) MARY LOU (acute kidney injury) Is this a current diagnosis for this admission?: Yes Plan: 12/11/2018-patient admitted with acute kidney injury latest creatinine is 1.34. Creatinine on admission is 1.64. Acute kidney injury is resolving. Patient baseline creatinine is around 1.0. Patient is receiving IV fluids and her appetite is very poor. Acute kidney injury may be secondary to poor oral intake or UTI. 12/12/2018-creatinine today is 1.19 improved from yesterday. On admission creatinine is 1.64. Acute kidney injury most likely secondary to poor oral intake is resolving. pt is presently on IV fluids normal saline at 50 cc/h. 12/13/2018-lab work today is pending and creatinine from yesterday is 1.19. Admitted with creatinine of 1.64 acute kidney injury is resolving. Because of the high blood pressures normal saline is discontinued this morning. 12/14/2018-latest creatinine is 0.99 on admission creatinine is 1.64 acute kidney injury is resolving. Most likely secondary to prerenal causes. Today's labs are pending. (2) Complicated UTI (urinary tract infection) Is this a current diagnosis for this admission?: Yes Plan: Continue current antibiotics. 12/11/2018-urine culture came back positive for ESBL. ESBL E. coli. On meropenem. Afebrile. Plan is to continue the present management. 12/12/2018-urine culture is positive for ESBL E. coli. Presently on meropenem. Afebrile. 12/13/2018-urine culture is positive for ESBL E. coli presently on meropenem afebrile. Plan is to continue the management for now. 12/14/2018-patient is afebrile T-max is 97.3 on meropenem for UTI. (3) Chronic respiratory failure due to COPD Is this a current diagnosis for this admission?: Yes Plan: Keep the patient on supplemental oxygen and was started on bronchodilator and Solu-Medrol since patient has been on prednisone 12/11/2018-patient has history of COPD and lung cancer. Acute respiratory failure most likely secondary to COPD/lung cancer. Pulse ox on 2 L is 97%. 12/12/2018-patient has history of COPD and lung cancer admitted with chronic respiratory failure due to COPD pulse ox is 100% on 2.5 L. On examination chest bilateral entry was decreased no wheezing no crepitations. 12/13/2018-patient has history of COPD, lung cancer admitted with acute on chronic respiratory failure secondary to COPD. Pulse ox today is percent on 4 L. Examination chest bilateral entry was decreased bilateral mild wheezing is present. X-ray done this morning negative for acute pathology. 12/14/2018-patient has history of COPD lung cancer admitted with acute on chronic respiratory failure. Pulse ox is 100% 4 L. (4) Coronary artery disease Qualifiers: Coronary Disease-Associated Artery/Lesion type: [place] artery Is this a current diagnosis for this admission?: Yes Plan: No anginal symptoms we will continue her home medication. 12/13/2018-patient denies any chest pains. Presently on her home medications. 12/14/2018-patient has history of coronary artery disease no complaints of chest pain plan is to continue the present management. (5) Hypertension Qualifiers: Hypertension type: essential hypertension Qualified Code(s): I10 - Essential (primary) hypertension Is this a current diagnosis for this admission?: Yes Plan: Continue her home medication 12/11/2018-patient blood pressure is 132/78. Stable. Plan is to continue the present management. Presently she is off the antihypertensives. 12/12/2018-blood pressure today's 150/96. Slightly elevated. Presently she is is not on any blood pressure medications. 12/13/2018-latest blood pressure was 170/107 on metoprolol 25 mg p.o. daily, hydralazine 10 mg IV every 4 as needed initiated. 12/14/2018 latest blood pressure is 160/93 improved from yesterday. Plan is to continue the present management. (6) Diastolic CHF, chronic Is this a current diagnosis for this admission?: Yes (7) Chronic anemia Is this a current diagnosis for this admission?: Yes (8) History of lung cancer Is this a current diagnosis for this admission?: No Plan: 12/14/2018 patient has history of lung cancer but unable to get any more information with the patient. Recent CT scans and MRI ruled out metastasis to the brain. - Time Time Spent with patient: 25-34 minutes Medications reviewed and adjusted accordingly: Yes Anticipated discharge: SNF
[2018-12-14] MEDS: POTASSIUM CHLORIDE 10 MEQ CAPSULE.ER PO SCH (11:05)
[2018-12-14] MEDS: TIOTROPIUM BROMIDE DPI 5 CAP/KIT (18 MCG/CAP) IH SCH (11:05)
[2018-12-14] MEDS: NYSTATIN CREAM 15 GM TOP SCH ×2 (11:05→21:07)
[2018-12-14] MEDS: MULTIVITAMIN TABLET PO SCH (11:05)
[2018-12-14] MEDS: DOCUSATE SODIUM 100 MG CAPSULE PO SCH ×2 (11:05→18:48)
[2018-12-14] MEDS: FAMOTIDINE 20 MG TABLET PO SCH ×2 (11:05→21:08)
[2018-12-14] MEDS: METHYLPREDNISOLONE INJ 40 MG/1 ML SDV IV SCH ×2 (11:05→21:08)
[2018-12-14] MEDS: FLUTICASONE/VILANTEROL 200-25 MCG/DOSE IH SCH (11:05)
--- NOTE | 2018-12-14 11:11 | RADIOLOGY REPORT (SQ) ---
EXAM DESCRIPTION: KUB/ABDOMEN (SINGLE VIEW) COMPLETED DATE/TIME: 12/14/2018 11:01 am REASON FOR STUDY: Nausea/vomiting COMPARISON: 09/22/2018 NUMBER OF VIEWS: One view. TECHNIQUE: Supine radiographic image of the abdomen acquired. LIMITATIONS: None. FINDINGS: BOWEL GAS PATTERN: Normal bowel gas pattern. No dilated loops. CALCIFICATIONS: No suspicious calcifications. SOFT TISSUES: No gross mass or suggestion of organomegaly. HARDWARE: None in the abdomen. BONES: No acute fracture. No worrisome bone lesions. OTHER: No other significant finding. IMPRESSION: NO RADIOGRAPHIC EVIDENCE FOR ACUTE ABDOMINAL DISEASE. TECHNICAL DOCUMENTATION: JOB ID: [id number] [employer]- All Rights Reserved Reading location - IP/workstation name: [email or web address]
[2018-12-14] MEDS: ONDANSETRON HCL INJ/PF 4 MG/2 ML SDV IV PRN (13:41)
[2018-12-14] MEDS: METOPROLOL SUCCINATE 25 MG TAB.SR.24H PO SCH (13:44)
[2018-12-15] MEDS: MEROPENEM 500 MG in NORMAL SALINE 50 ML IV SCH (02:12)
[2018-12-15] MEDS: HEPARIN SOD (PORCINE) 5,000 UNIT/ML 1 ML SYRINGE SUBCUT SCH ×3 (05:18→21:40)
[2018-12-15] MEDS: LEVOTHYROXINE SODIUM 0.1 MG TABLET PO SCH (05:18)
[2018-12-15 05:29] LABS: HEMATOCRIT 27.4 % (36.0-47.0); HEMOGLOBIN 9.1 g/dL (12.0-15.5); MEAN CORPUSCULAR HEMOGLOBIN 31.9 pg (27.0-33.4); MEAN CORPUSCULAR HGB CONC 33.2 g/dL (32.0-36.0); MEAN CORPUSCULAR VOLUME 96 fl (80-97); PLATELET COUNT 259 10^3/uL (150-450); RED BLOOD COUNT 2.86 10^6/uL (3.72-5.28); RED CELL DISTRIBUTION WIDTH 15.9 % (11.5-14.0); WHITE BLOOD COUNT 7.3 10^3/uL (4.0-10.5)
[2018-12-15 05:46] LABS: ALANINE AMINOTRANSFERASE 28 U/L (9-52); ALBUMIN 2.8 g/dL (3.5-5.0); ALKALINE PHOSPHATASE 40 U/L (38-126); ASPARTATE AMINO TRANSFERASE 19 U/L (14-36); BILIRUBIN,DIRECT 0.1 mg/dL (0.0-0.4); BILIRUBIN,TOTAL 0.2 mg/dL (0.2-1.3); BLOOD UREA NITROGEN 37 mg/dL (7-20); CALCIUM 8.4 mg/dL (8.4-10.2); GLUCOSE 127 mg/dL (75-110); POTASSIUM 5.4 mmol/L (3.6-5.0)
[2018-12-15 05:51] LABS: CARBON DIOXIDE 37 mmol/L (22-30); CHLORIDE 103 mmol/L (98-107); SODIUM 141.2 mmol/L (137-145)
[2018-12-15 06:06] LABS: ABSOLUTE LYMPHOCYTES# (MANUAL) 1.2 10^3/uL (0.5-4.7); ABSOLUTE MONOCYTES # (MANUAL) 0.3 10^3/uL (0.1-1.4); ABSOLUTE NEUTROPHILS# (MANUAL) 5.8 10^3/uL (1.7-8.2); BASOPHILS % (MANUAL) 0 % (0-2); EOSINOPHILS % (MANUAL) 0 % (0-6); LYMPHOCYTES % (MANUAL) 17 % (13-45); METAMYELOCYTES % (MANUAL) 2 % (0); MONOCYTES % (MANUAL) 4 % (3-13); MYELOCYTES % (MANUAL) 1 % (0); SEGMENTED NEUTROPHILS % (MAN) 76 % (42-78); TOTAL CELLS COUNTED 100
[2018-12-15 06:09] LABS: ANION GAP 1 (5-19); ANISOCYTOSIS 1+; OVALOCYTES SLIGHT; PLATELET COMMENT ADEQUATE; POIKILOCYTOSIS 1+; TEAR DROP CELLS 1+; TOXIC GRANULATION 1+; TOXIC VACUOLATION PRESENT
[2018-12-15] MEDS ORDERED: SODIUM POLYSTYRENE SULFONATE 15 GM/60 ML PO ONE (07:53)
--- NOTE | 2018-12-15 09:41 | PDOC PROGRESS REPORT ---
Subjective Progress Note for:: 12/15/18 Subjective:: 73 year old female patient with multiple comorbidities including history of lung cancer with metastasis to the brain. CHF diastolic, coronary artery disease, hypertension, hyperlipidemia, COPD, hypothyroidism, chronic respiratory failure O2 dependent 20/02 presents with chief complaint of lower abdominal pain and shortness of breath. Complains of crampy pain localized to her bladder area. Patient was seen 3 days ago at this hospital where her urine culture grew E. coli ESBL and at that time sputum culture also done and it grew Pseudomonas aeruginosa which is pansensitive. Patient denies any chills, fever, chest pain, palpitation or diaphoresis. She has underlying chronic cough and shortness of breath. Her initial blood work is unremarkable except for hemoglobin of 8.8 and creatinine of 1.64. Her chest x-ray reported as stable. Patient has been treated as outpatient with Levaquin and Macrobid by her primary care physician for 3 days and patient stated she was having hallucinations while taking the above-mentioned medications. When I evaluate the patient patient has marketed suprapubic tenderness. 12/11/2018-patient is comfortably in the bed sleeping. Patient appetite is very poor breakfast is at bedside. Woke up and calling communicating okay. Not in distress. I spoke to the patient's daughter who has the power of tax attorney and she said her mom's wishes are DNR. But if she goes into respiratory failure she wants her to be intubated. No acute events in the last 24 hours afebrile. Urine culture came back positive for ESBL and contact isolation. Presently patient is on meropenem. I spoke to patient's daughter who is the power of tax attorney she denies that her mom had mets in the brain. Recent CT head and MRI of the head reviewed there is no evidence of mets in those investigations. The daughter thought lung cancer spread to the kidneys are reviewed abdomen/pelvis CT there is no mentioning of any renal masses by the radiologist. 12/12/2018-no acute events in the last 24 hours. Patient is afebrile. Patient's daughter who has the power of tax attorney wants DNR but at the same time requesting intubation if necessary. Patient is sleepy most of the time her appetite is very poor breakfast is still at bedside. 12/13/2018-patient's blood pressure this morning systolic is more than 200 in the 20s and a heart rate went up to more than 120 she was started on hydralazine 10 mg IV every 4 as needed latest blood pressure is 170/107 patient complains of nausea we are going to give nausea medication heart rate come down to 100. Chest x-ray done this morning negative for acute pathology. On examination chest bilateral entry was decreased mild wheezing is present in bilateral lung curtis. Lab work with this morning is pending. 12/14/2018-patient has one episode of emesis this morning. WBC count went up to 16,800 yesterday. Plan to do the KUB and repeat labs today. Presently on m eropenem for ESBL E. coli. She is in contact isolation. In my opinion patient needs to go to a rehab facility. Patient is afebrile. 12/15/2018-no acute events in the last 24 hours. Patient is afebrile. No more nausea vomiting or diarrhea noticed. Potassium is 5.4 plan to give Kayexalate 15 g p.o. today. To stop potassium supplementations. in My opinion she needs to go to a rehab facility. Reason For Visit: COMPLICATED UTI. ACUTE KIDNEY INJURY. Physical Exam Vital Signs: Temp Pulse Resp BP Pulse Ox 97.3 F 68 20 147/90 H 100 12/15/18 08:20 12/15/18 08:20 12/15/18 08:20 12/15/18 08:20 12/15/18 08:20 Intake & Output 12/14/18 12/15/18 12/16/18 06:59 06:59 06:59 Intake Total 565 790 Output Total 1250 2300 Balance -685 -1510 Weight 83.9 kg 82.3 kg General appearance: PRESENT: no acute distress Head exam: PRESENT: atraumatic Eye exam: PRESENT: PERRLA Mouth exam: PRESENT: moist, tongue midline Teeth exam: PRESENT: poor dentation Neck exam: ABSENT: carotid bruit, JVD, lymphadenopathy, thyromegaly Respiratory exam: PRESENT: decreased breath sounds Cardiovascular exam: PRESENT: RRR. ABSENT: diastolic murmur, rubs, systolic murmur GI/Abdominal exam: PRESENT: normal bowel sounds, soft. ABSENT: distended, guarding, mass, organolmegaly, rebound, tenderness Rectal exam: PRESENT: deferred Extremities exam: PRESENT: full ROM. ABSENT: calf tenderness, clubbing, pedal edema Neurological exam: PRESENT: alert, awake, oriented to person, oriented to place, oriented to time, oriented to situation, CN II-XII grossly intact. ABSENT: motor sensory deficit Psychiatric exam: PRESENT: appropriate affect, normal mood. ABSENT: homicidal ideation, suicidal ideation Results Laboratory Results: 12/15/18 05:16 12/15/18 05:16 12/14/18 12/14/18 12/15/18 09:00 09:00 05:16 WBC 12.7 H 7.3 RBC 3.09 L 2.86 L Hgb 10.0 L 9.1 L Hct 29.9 L 27.4 L MCV 97 96 MCH 32.5 31.9 MCHC 33.6 33.2 RDW 16.5 H 15.9 H Plt Count 340 259 Seg Neutrophils % Not Reportable Lymphocytes % Not Reportable Monocytes % Not Reportable Eosinophils % Not Reportable Basophils % Not Reportable Absolute Neutrophils Not Reportable Absolute Lymphocytes Not Reportable Absolute Monocytes Not Reportable Absolute Eosinophils Not Reportable Absolute Basophils Not Reportable Sodium Potassium Chloride Carbon Dioxide Anion Gap BUN Creatinine Est GFR ( Amer) Est GFR (Non-Af Amer) Glucose Calcium Magnesium 2.5 H Total Bilirubin AST ALT Alkaline Phosphatase Total Protein Albumin 12/15/18 05:16 WBC RBC Hgb Hct MCV MCH MCHC RDW Plt Count Seg Neutrophils % Lymphocytes % Monocytes % Eosinophils % Basophils % Absolute Neutrophils Absolute Lymphocytes Absolute Monocytes Absolute Eosinophils Absolute Basophils Sodium 141.2 Potassium 5.4 H Chloride 103 Carbon Dioxide 37 H Anion Gap 1 L BUN 37 H Creatinine 0.89 Est GFR ( Amer) > 60 Est GFR (Non-Af Amer) > 60 Glucose 127 H Calcium 8.4 Magnesium 2.5 H Total Bilirubin 0.2 AST 19 ALT 28 Alkaline Phosphatase 40 Total Protein 5.0 L Albumin 2.8 L 12/09/18 18:00 Blood Blood Culture - Final NO GROWTH IN 5 DAYS 12/09/18 16:10 Blood Blood Culture - Final NO GROWTH IN 5 DAYS Impressions: Abdomen/Pelvis CT 12/09/18 17:25 IMPRESSION: 1. Allowing for slight nonspecific right hydronephrosis, negative for acute abnormality. No obstructing stones. 2. Sidhu catheter is well within the bladder and has a coiled appearance. This could perhaps be adjusted, pulled back some. Chest X-Ray 12/13/18 00:00 IMPRESSION: STABLE APPEARANCE OF THE CHEST. KUB X-Ray 12/14/18 00:00 IMPRESSION: NO RADIOGRAPHIC EVIDENCE FOR ACUTE ABDOMINAL DISEASE. Assessment and Plan - Diagnosis (1) MARY LOU (acute kidney injury) Is this a current diagnosis for this admission?: Yes Plan: 12/11/2018-patient admitted with acute kidney injury latest creatinine is 1.34. Creatinine on admission is 1.64. Acute kidney injury is resolving. Patient baseline creatinine is around 1.0. Patient is receiving IV fluids and her appetite is very poor. Acute kidney injury may be secondary to poor oral intake or UTI. 12/12/2018-creatinine today is 1.19 improved from yesterday. On admission creatinine is 1.64. Acute kidney injury most likely secondary to poor oral intake is resolving. pt is presently on IV fluids normal saline at 50 cc/h. 12/13/2018-lab work today is pending and creatinine from yesterday is 1.19. Admitted with creatinine of 1.64 acute kidney injury is resolving. Because of the high blood pressures normal saline is discontinued this morning. 12/14/2018-latest creatinine is 0.99 on admission creatinine is 1.64 acute kidney injury is resolving. Most likely secondary to prerenal causes. Today's labs are pending. 12/15/2018-patient's latest creatinine is 0.89 on admission it was 1.64 acute kidney injury resolved. (2) Complicated UTI (urinary tract infection) Is this a current diagnosis for this admission?: Yes Plan: Continue current antibiotics. 12/11/2018-urine culture came back positive for ESBL. ESBL E. coli. On meropenem. Afebrile. Plan is to continue the present management. 12/12/2018-urine culture is positive for ESBL E. coli. Presently on meropenem. Afebrile. 12/13/2018-urine culture is positive for ESBL E. coli presently on meropenem afebrile. Plan is to continue the management for now. 12/14/2018-patient is afebrile T-max is 97.3 on meropenem for UTI. 12/15/2018-patient is receiving meropenem for UTI. Plan is to discontinue meropenem from today. T-max is 98.3. Blood cultures are negative. (3) Chronic respiratory failure due to COPD Is this a current diagnosis for this admission?: Yes Plan: Keep the patient on supplemental oxygen and was started on bronchodilator and Solu-Medrol since patient has been on prednisone 12/11/2018-patient has history of COPD and lung cancer. Acute respiratory failure most likely secondary to COPD/lung cancer. Pulse ox on 2 L is 97%. 12/12/2018-patient has history of COPD and lung cancer admitted with chronic respiratory failure due to COPD pulse ox is 100% on 2.5 L. On examination chest bilateral entry was decreased no wheezing no crepitations. 12/13/2018-patient has history of COPD, lung cancer admitted with acute on chronic respiratory failure secondary to COPD. Pulse ox today is percent on 4 L. Examination chest bilateral entry was decreased bilateral mild wheezing is present. X-ray done this morning negative for acute pathology. 12/14/2018-patient has history of COPD lung cancer admitted with acute on chronic respiratory failure. Pulse ox is 100% 4 L. 12/15/2018-patient has history of COPD, lung cancer admitted with acute on chronic respiratory failure pulse ox is 96% room air today. (4) Coronary artery disease Qualifiers: Coronary Disease-Associated Artery/Lesion type: [place] artery Is this a current diagnosis for this admission?: Yes Plan: No anginal symptoms we will continue her home medication. 12/13/2018-patient denies any chest pains. Presently on her home medications. 12/14/2018-patient has history of coronary artery disease no complaints of chest pain plan is to continue the present management. 09/17/2018-patient has history of coronary artery disease no complaints of chest pain today plan is to continue the present management. (5) Hypertension Qualifiers: Hypertension type: essential hypertension Qualified Code(s): I10 - Essential (primary) hypertension Is this a current diagnosis for this admission?: Yes Plan: Continue her home medication 12/11/2018-patient blood pressure is 132/78. Stable. Plan is to continue the present management. Presently she is off the antihypertensives. 12/12/2018-blood pressure today's 150/96. Slightly elevated. Presently she is is not on any blood pressure medications. 12/13/2018-latest blood pressure was 170/107 on metoprolol 25 mg p.o. daily, hydralazine 10 mg IV every 4 as needed initiated. 12/14/2018 latest blood pressure is 160/93 improved from yesterday. Plan is to continue the present management. 12/15/2018 blood pressure today is 150/84 stable. Presently on metoprolol 25 mg p.o. daily, hydralazine 10 mg IV every 4 as needed plan is to continue the present management. (6) Diastolic CHF, chronic Is this a current diagnosis for this admission?: Yes Plan: Compensated. 12/11/2018-patient has history of chronic diastolic congestive heart failure. Patient is euvolemic. 12/13/2018-patient has history of chronic diastolic heart failure. Plan to restart on Lasix 20 mg p.o. daily from today. Patient still looks euvolemic. But the blood pressures are significantly elevated this morning. 12/15/2018-patient has a history of chronic diastolic congestive heart failure patient is euvolemic. Present on Lasix 20 mg p.o. daily. Plan is to continue the present management. (7) Chronic anemia Is this a current diagnosis for this admission?: Yes (8) History of lung cancer Is this a current diagnosis for this admission?: No (9) Hyperkalemia Is this a current diagnosis for this admission?: Yes Plan: 12/15/2018-serum potassium level is 5.4 today she was given Kayexalate 50 mg 1 dose plan to repeat the labs tomorrow. - Time Time Spent with patient: 25-34 minutes Medications reviewed and adjusted accordingly: Yes Anticipated discharge: Home
[2018-12-15] MEDS: DOCUSATE SODIUM 100 MG CAPSULE PO SCH ×2 (10:00→18:13)
[2018-12-15] MEDS: POTASSIUM CHLORIDE 10 MEQ CAPSULE.ER PO SCH (10:00)
[2018-12-15] MEDS: NYSTATIN CREAM 15 GM TOP SCH ×2 (10:01→21:40)
[2018-12-15] MEDS: FLUTICASONE/VILANTEROL 200-25 MCG/DOSE IH SCH (10:02)
[2018-12-15] MEDS: FAMOTIDINE 20 MG TABLET PO SCH ×2 (10:02→21:39)
[2018-12-15] MEDS: METOPROLOL SUCCINATE 25 MG TAB.SR.24H PO SCH (10:02)
[2018-12-15] MEDS: METHYLPREDNISOLONE INJ 40 MG/1 ML SDV IV SCH ×2 (10:02→21:39)
[2018-12-15] MEDS: MULTIVITAMIN TABLET PO SCH (10:02)
[2018-12-15] MEDS: TIOTROPIUM BROMIDE DPI 5 CAP/KIT (18 MCG/CAP) IH SCH (10:10)
[2018-12-15] MEDS: LEVALBUTEROL HCL NEB 1.25 MG/3 ML AMPUL NEB PRN (11:52)
[2018-12-16] MEDS: LEVALBUTEROL HCL NEB 1.25 MG/3 ML AMPUL NEB PRN ×4 (00:22→20:54)
[2018-12-16] MEDS: HEPARIN SOD (PORCINE) 5,000 UNIT/ML 1 ML SYRINGE SUBCUT SCH ×3 (06:55→21:21)
[2018-12-16] MEDS: LEVOTHYROXINE SODIUM 0.1 MG TABLET PO SCH (06:55)
[2018-12-16 09:20] LABS: ALANINE AMINOTRANSFERASE 33 U/L (9-52); ALKALINE PHOSPHATASE 44 U/L (38-126); ASPARTATE AMINO TRANSFERASE 23 U/L (14-36); BILIRUBIN,DIRECT 0.3 mg/dL (0.0-0.4); BILIRUBIN,TOTAL 0.3 mg/dL (0.2-1.3); BLOOD UREA NITROGEN 35 mg/dL (7-20); CALCIUM 8.6 mg/dL (8.4-10.2); CARBON DIOXIDE 38 mmol/L (22-30); CHLORIDE 100 mmol/L (98-107); GLUCOSE 125 mg/dL (75-110); POTASSIUM 4.9 mmol/L (3.6-5.0); SODIUM 140.4 mmol/L (137-145); TOTAL PROTEIN 5.3 g/dL (6.3-8.2)
[2018-12-16 09:21] LABS: ANION GAP 2 (5-19)
--- NOTE | 2018-12-16 10:46 | PDOC PROGRESS REPORT ---
Subjective Progress Note for:: 12/16/18 Subjective:: 73 year old female patient with multiple comorbidities including history of lung cancer with metastasis to the brain. CHF diastolic, coronary artery disease, hypertension, hyperlipidemia, COPD, hypothyroidism, chronic respiratory failure O2 dependent 20/02 presents with chief complaint of lower abdominal pain and shortness of breath. Complains of crampy pain localized to her bladder area. Patient was seen 3 days ago at this hospital where her urine culture grew E. coli ESBL and at that time sputum culture also done and it grew Pseudomonas aeruginosa which is pansensitive. Patient denies any chills, fever, chest pain, palpitation or diaphoresis. She has underlying chronic cough and shortness of breath. Her initial blood work is unremarkable except for hemoglobin of 8.8 and creatinine of 1.64. Her chest x-ray reported as stable. Patient has been treated as outpatient with Levaquin and Macrobid by her primary care physician for 3 days and patient stated she was having hallucinations while taking the above-mentioned medications. When I evaluate the patient patient has marketed suprapubic tenderness. 12/11/2018-patient is comfortably in the bed sleeping. Patient appetite is very poor breakfast is at bedside. Woke up and calling communicating okay. Not in distress. I spoke to the patient's daughter who has the power of tax attorney and she said her mom's wishes are DNR. But if she goes into respiratory failure she wants her to be intubated. No acute events in the last 24 hours afebrile. Urine culture came back positive for ESBL and contact isolation. Presently patient is on meropenem. I spoke to patient's daughter who is the power of tax attorney she denies that her mom had mets in the brain. Recent CT head and MRI of the head reviewed there is no evidence of mets in those investigations. The daughter thought lung cancer spread to the kidneys are reviewed abdomen/pelvis CT there is no mentioning of any renal masses by the radiologist. 12/12/2018-no acute events in the last 24 hours. Patient is afebrile. Patient's daughter who has the power of tax attorney wants DNR but at the same time requesting intubation if necessary. Patient is sleepy most of the time her appetite is very poor breakfast is still at bedside. 12/13/2018-patient's blood pressure this morning systolic is more than 200 in the 20s and a heart rate went up to more than 120 she was started on hydralazine 10 mg IV every 4 as needed latest blood pressure is 170/107 patient complains of nausea we are going to give nausea medication heart rate come down to 100. Chest x-ray done this morning negative for acute pathology. On examination chest bilateral entry was decreased mild wheezing is present in bilateral lung curtis. Lab work with this morning is pending. 12/14/2018-patient has one episode of emesis this morning. WBC count went up to 16,800 yesterday. Plan to do the KUB and repeat labs today. Presently on m eropenem for ESBL E. coli. She is in contact isolation. In my opinion patient needs to go to a rehab facility. Patient is afebrile. 12/15/2018-no acute events in the last 24 hours. Patient is afebrile. No more nausea vomiting or diarrhea noticed. Potassium is 5.4 plan to give Kayexalate 15 g p.o. today. To stop potassium supplementations. in My opinion she needs to go to a rehab facility. 12/16/2018-no acute events in the last 24 hours. Patient is afebrile. Com fortably sleeping in the bed woke up and calling denies any complaints. Reason For Visit: COMPLICATED UTI. ACUTE KIDNEY INJURY. Physical Exam Vital Signs: Temp Pulse Resp BP Pulse Ox 97.5 F 83 16 157/76 H 100 12/16/18 03:21 12/16/18 07:00 12/16/18 03:21 12/16/18 03:21 12/16/18 03:21 Intake & Output 12/15/18 12/16/18 12/17/18 06:59 06:59 06:59 Intake Total 790 800 Output Total 2300 1775 Balance -1510 -975 Weight 82.3 kg 82.1 kg General appearance: PRESENT: no acute distress Head exam: PRESENT: atraumatic Eye exam: PRESENT: PERRLA Mouth exam: PRESENT: moist, tongue midline Teeth exam: PRESENT: poor dentation Neck exam: ABSENT: carotid bruit, JVD, lymphadenopathy, thyromegaly Respiratory exam: PRESENT: decreased breath sounds Cardiovascular exam: PRESENT: RRR. ABSENT: diastolic murmur, rubs, systolic murmur GI/Abdominal exam: PRESENT: normal bowel sounds, soft. ABSENT: distended, guarding, mass, organolmegaly, rebound, tenderness Rectal exam: PRESENT: deferred Neurological exam: PRESENT: alert, awake, oriented to person, oriented to place, oriented to time, oriented to situation, CN II-XII grossly intact. ABSENT: motor sensory deficit Psychiatric exam: PRESENT: appropriate affect, normal mood. ABSENT: homicidal ideation, suicidal ideation Results Laboratory Results: 12/15/18 05:16 12/16/18 08:30 12/16/18 08:30 Sodium 140.4 Potassium 4.9 Chloride 100 Carbon Dioxide 38 H Anion Gap 2 L BUN 35 H Creatinine 0.76 Est GFR ( Amer) > 60 Est GFR (Non-Af Amer) > 60 Glucose 125 H Calcium 8.6 Total Bilirubin 0.3 AST 23 ALT 33 Alkaline Phosphatase 44 Total Protein 5.3 L Albumin 3.0 L Impressions: Abdomen/Pelvis CT 12/09/18 17:25 IMPRESSION: 1. Allowing for slight nonspecific right hydronephrosis, negative for acute abnormality. No obstructing stones. 2. Sidhu catheter is well within the bladder and has a coiled appearance. This could perhaps be adjusted, pulled back some. Chest X-Ray 12/13/18 00:00 IMPRESSION: STABLE APPEARANCE OF THE CHEST. KUB X-Ray 12/14/18 00:00 IMPRESSION: NO RADIOGRAPHIC EVIDENCE FOR ACUTE ABDOMINAL DISEASE. Assessment and Plan - Diagnosis (1) MARY LOU (acute kidney injury) Is this a current diagnosis for this admission?: Yes Plan: 12/11/2018-patient admitted with acute kidney injury latest creatinine is 1.34. Creatinine on admission is 1.64. Acute kidney injury is resolving. Patient baseline creatinine is around 1.0. Patient is receiving IV fluids and her appetite is very poor. Acute kidney injury may be secondary to poor oral intake or UTI. 12/12/2018-creatinine today is 1.19 improved from yesterday. On admission creatinine is 1.64. Acute kidney injury most likely secondary to poor oral intake is resolving. pt is presently on IV fluids normal saline at 50 cc/h. 12/13/2018-lab work today is pending and creatinine from yesterday is 1.19. Admitted with creatinine of 1.64 acute kidney injury is resolving. Because of the high blood pressures normal saline is discontinued this morning. 12/14/2018-latest creatinine is 0.99 on admission creatinine is 1.64 acute kidney injury is resolving. Most likely secondary to prerenal causes. Today's labs are pending. 12/15/2018-patient's latest creatinine is 0.89 on admission it was 1.64 acute kidney injury resolved. 12/16/2018-latest creatinine is 0.79 acute kidney injury most likely secondary to prerenal causes resolved. (2) Complicated UTI (urinary tract infection) Is this a current diagnosis for this admission?: Yes Plan: Continue current antibiotics. 12/11/2018-urine culture came back positive for ESBL. ESBL E. coli. On meropenem. Afebrile. Plan is to continue the present management. 12/12/2018-urine culture is positive for ESBL E. coli. Presently on meropenem. Afebrile. 12/13/2018-urine culture is positive for ESBL E. coli presently on meropenem afebrile. Plan is to continue the management for now. 12/14/2018-patient is afebrile T-max is 97.3 on meropenem for UTI. 12/15/2018-patient is receiving meropenem for UTI. Plan is to discontinue meropenem from today. T-max is 98.3. Blood cultures are negative. 12/16/2018-urine culture came back positive for ESBL E. coli initially treated with meropenem T-max 97.5. Blood cultures are negative. Meropenem was discontinued yesterday. (3) Chronic respiratory failure due to COPD Is this a current diagnosis for this admission?: Yes Plan: Keep the patient on supplemental oxygen and was started on bronchodilator and Solu-Medrol since patient has been on prednisone 12/11/2018-patient has history of COPD and lung cancer. Acute respiratory failure most likely secondary to COPD/lung cancer. Pulse ox on 2 L is 97%. 12/12/2018-patient has history of COPD and lung cancer admitted with chronic respiratory failure due to COPD pulse ox is 100% on 2.5 L. On examination chest bilateral entry was decreased no wheezing no crepitations. 12/13/2018-patient has history of COPD, lung cancer admitted with acute on chronic respiratory failure secondary to COPD. Pulse ox today is percent on 4 L. Examination chest bilateral entry was decreased bilateral mild wheezing is present. X-ray done this morning negative for acute pathology. 12/14/2018-patient has history of COPD lung cancer admitted with acute on chronic respiratory failure. Pulse ox is 100% 4 L. 12/15/2018-patient has history of COPD, lung cancer admitted with acute on chronic respiratory failure pulse ox is 96% room air today. 12/16/2018-patient has history of COPD and lung cancer admitted with acute respiratory failure with hypoxia pulse ox is 94% today on room air. (4) Coronary artery disease Qualifiers: Coronary Disease-Associated Artery/Lesion type: [place] artery Is this a current diagnosis for this admission?: Yes (5) Hypertension Qualifiers: Hypertension type: essential hypertension Qualified Code(s): I10 - Essential (primary) hypertension Is this a current diagnosis for this admission?: Yes Plan: Continue her home medication 12/11/2018-patient blood pressure is 132/78. Stable. Plan is to continue the present management. Presently she is off the antihypertensives. 12/12/2018-blood pressure today's 150/96. Slightly elevated. Presently she is is not on any blood pressure medications. 12/13/2018-latest blood pressure was 170/107 on metoprolol 25 mg p.o. daily, hydralazine 10 mg IV every 4 as needed initiated. 12/14/2018 latest blood pressure is 160/93 improved from yesterday. Plan is to continue the present management. 12/15/2018 blood pressure today is 150/84 stable. Presently on metoprolol 25 mg p.o. daily, hydralazine 10 mg IV every 4 as needed plan is to continue the present management. 12/16/2018-blood pressure today is 157/76. Stable. (6) Diastolic CHF, chronic Is this a current diagnosis for this admission?: Yes (7) Chronic anemia Is this a current diagnosis for this admission?: Yes (8) History of lung cancer Is this a current diagnosis for this admission?: No (9) Hyperkalemia Is this a current diagnosis for this admission?: Yes Plan: 12/15/2018-serum potassium level is 5.4 today she was given Kayexalate 50 mg 1 dose plan to repeat the labs tomorrow. 12/16/2018-serum potassium level today is 4.9 hyperkalemia is resolved. - Time Time Spent with patient: 25-34 minutes Smoking Cessation Education: 3 to 10 minutes Medications reviewed and adjusted accordingly: Yes Anticipated discharge: Home
[2018-12-16] MEDS: TIOTROPIUM BROMIDE DPI 5 CAP/KIT (18 MCG/CAP) IH SCH (10:49)
[2018-12-16] MEDS: FLUTICASONE/VILANTEROL 200-25 MCG/DOSE IH SCH (10:49)
[2018-12-16] MEDS: DOCUSATE SODIUM 100 MG CAPSULE PO SCH ×2 (10:50→17:34)
[2018-12-16] MEDS: FAMOTIDINE 20 MG TABLET PO SCH ×2 (10:50→21:21)
[2018-12-16] MEDS: MULTIVITAMIN TABLET PO SCH (10:51)
[2018-12-16] MEDS: METHYLPREDNISOLONE INJ 40 MG/1 ML SDV IV SCH ×2 (10:51→21:21)
[2018-12-16] MEDS: METOPROLOL SUCCINATE 25 MG TAB.SR.24H PO SCH (10:51)
[2018-12-16] MEDS: POTASSIUM CHLORIDE 10 MEQ CAPSULE.ER PO SCH (10:51)
[2018-12-16] MEDS: NYSTATIN CREAM 15 GM TOP SCH ×2 (10:51→21:22)
[2018-12-17 05:35] LABS: HEMATOCRIT 27.8 % (36.0-47.0); HEMOGLOBIN 9.2 g/dL (12.0-15.5); MEAN CORPUSCULAR HGB CONC 33.2 g/dL (32.0-36.0); MEAN CORPUSCULAR VOLUME 96 fl (80-97); PLATELET COUNT 203 10^3/uL (150-450); RED BLOOD COUNT 2.88 10^6/uL (3.72-5.28); RED CELL DISTRIBUTION WIDTH 16.2 % (11.5-14.0); WHITE BLOOD COUNT 6.8 10^3/uL (4.0-10.5)
[2018-12-17 05:56] LABS: ALANINE AMINOTRANSFERASE 28 U/L (9-52); ALBUMIN 2.8 g/dL (3.5-5.0); ALKALINE PHOSPHATASE 56 U/L (38-126); ASPARTATE AMINO TRANSFERASE 16 U/L (14-36); BILIRUBIN,DIRECT 0.2 mg/dL (0.0-0.4); BILIRUBIN,TOTAL 0.2 mg/dL (0.2-1.3); BLOOD UREA NITROGEN 32 mg/dL (7-20); CALCIUM 8.8 mg/dL (8.4-10.2); GLUCOSE 155 mg/dL (75-110); POTASSIUM 5.4 mmol/L (3.6-5.0); TOTAL PROTEIN 4.8 g/dL (6.3-8.2)
[2018-12-17 05:59] LABS: ABSOLUTE LYMPHOCYTES# (MANUAL) 0.6 10^3/uL (0.5-4.7); ABSOLUTE MONOCYTES # (MANUAL) 0.2 10^3/uL (0.1-1.4); ABSOLUTE NEUTROPHILS# (MANUAL) 5.9 10^3/uL (1.7-8.2); BAND NEUTROPHILS % (MANUAL) 1 % (3-5); BASOPHILS % (MANUAL) 0 % (0-2); EOSINOPHILS % (MANUAL) 1 % (0-6); LYMPHOCYTES % (MANUAL) 9 % (13-45); METAMYELOCYTES % (MANUAL) 1 % (0); MONOCYTES % (MANUAL) 3 % (3-13); SEGMENTED NEUTROPHILS % (MAN) 82 % (42-78); TOTAL CELLS COUNTED 100
[2018-12-17 06:00] LABS: PLATELET COMMENT ADEQUATE
[2018-12-17 06:01] LABS: ANISOCYTOSIS 1+; CARBON DIOXIDE 36 mmol/L (22-30); CHLORIDE 102 mmol/L (98-107); HYPOCHROMASIA SLIGHT; TEAR DROP CELLS 1+
[2018-12-17 06:02] LABS: MYELOCYTES % (MANUAL) 3 % (0)
[2018-12-17 06:15] LABS: ANION GAP 3 (5-19)
[2018-12-17] MEDS: LEVOTHYROXINE SODIUM 0.1 MG TABLET PO SCH (06:37)
[2018-12-17] MEDS: HEPARIN SOD (PORCINE) 5,000 UNIT/ML 1 ML SYRINGE SUBCUT SCH ×3 (06:37→21:37)
--- NOTE | 2018-12-17 09:16 | PDOC PROGRESS REPORT ---
Subjective Progress Note for:: 12/17/18 Subjective:: 73 year old female patient with multiple comorbidities including history of lung cancer with metastasis to the brain. CHF diastolic, coronary artery disease, hypertension, hyperlipidemia, COPD, hypothyroidism, chronic respiratory failure O2 dependent 20/02 presents with chief complaint of lower abdominal pain and shortness of breath. Complains of crampy pain localized to her bladder area. Patient was seen 3 days ago at this hospital where her urine culture grew E. coli ESBL and at that time sputum culture also done and it grew Pseudomonas aeruginosa which is pansensitive. Patient denies any chills, fever, chest pain, palpitation or diaphoresis. She has underlying chronic cough and shortness of breath. Her initial blood work is unremarkable except for hemoglobin of 8.8 and creatinine of 1.64. Her chest x-ray reported as stable. Patient has been treated as outpatient with Levaquin and Macrobid by her primary care physician for 3 days and patient stated she was having hallucinations while taking the above-mentioned medications. When I evaluate the patient patient has marketed suprapubic tenderness. 12/11/2018-patient is comfortably in the bed sleeping. Patient appetite is very poor breakfast is at bedside. Woke up and calling communicating okay. Not in distress. I spoke to the patient's daughter who has the power of receivables specialist and she said her mom's wishes are DNR. But if she goes into respiratory failure she wants her to be intubated. No acute events in the last 24 hours afebrile. Urine culture came back positive for ESBL and contact isolation. Presently patient is on meropenem. I spoke to patient's daughter who is the power of receivables specialist she denies that her mom had mets in the brain. Recent CT head and MRI of the head reviewed there is no evidence of mets in those investigations. The daughter thought lung cancer spread to the kidneys are reviewed abdomen/pelvis CT there is no mentioning of any renal masses by the radiologist. 12/12/2018-no acute events in the last 24 hours. Patient is afebrile. Patient's daughter who has the power of receivables specialist wants DNR but at the same time requesting intubation if necessary. Patient is sleepy most of the time her appetite is very poor breakfast is still at bedside. 12/13/2018-patient's blood pressure this morning systolic is more than 200 in the 20s and a heart rate went up to more than 120 she was started on hydralazine 10 mg IV every 4 as needed latest blood pressure is 170/107 patient complains of nausea we are going to give nausea medication heart rate come down to 100. Chest x-ray done this morning negative for acute pathology. On examination chest bilateral entry was decreased mild wheezing is present in bilateral lung curtis. Lab work with this morning is pending. 12/14/2018-patient has one episode of emesis this morning. WBC count went up to 16,800 yesterday. Plan to do the KUB and repeat labs today. Presently on m eropenem for ESBL E. coli. She is in contact isolation. In my opinion patient needs to go to a rehab facility. Patient is afebrile. 12/15/2018-no acute events in the last 24 hours. Patient is afebrile. No more nausea vomiting or diarrhea noticed. Potassium is 5.4 plan to give Kayexalate 15 g p.o. today. To stop potassium supplementations. in My opinion she needs to go to a rehab facility. 12/16/2018-no acute events in the last 24 hours. Patient is afebrile. Com fortably sleeping in the bed woke up and calling denies any complaints. 12/17/2018-no acute events in the last 24 hours. Patient is afebrile. Portable in the bed communicating okay. Reason For Visit: COMPLICATED UTI. ACUTE KIDNEY INJURY. Physical Exam Vital Signs: Temp Pulse Resp BP Pulse Ox 98.2 F 79 16 145/73 H 100 12/17/18 03:18 12/17/18 07:00 12/17/18 03:18 12/17/18 03:18 12/17/18 03:18 Intake & Output 12/16/18 12/17/18 12/18/18 06:59 06:59 06:59 Intake Total 800 1530 Output Total 1775 1050 Balance -975 480 Weight 82.1 kg 82.4 kg General appearance: PRESENT: no acute distress Head exam: PRESENT: atraumatic Eye exam: PRESENT: PERRLA Mouth exam: PRESENT: moist, tongue midline Teeth exam: PRESENT: poor dentation Neck exam: ABSENT: carotid bruit, JVD, lymphadenopathy, thyromegaly Respiratory exam: PRESENT: decreased breath sounds Cardiovascular exam: PRESENT: RRR. ABSENT: diastolic murmur, rubs, systolic murmur GI/Abdominal exam: PRESENT: normal bowel sounds, soft. ABSENT: distended, guarding, mass, organolmegaly, rebound, tenderness Rectal exam: PRESENT: deferred Extremities exam: PRESENT: full ROM. ABSENT: calf tenderness, clubbing, pedal edema Neurological exam: PRESENT: alert, awake, oriented to person, oriented to place, oriented to time, oriented to situation, CN II-XII grossly intact. ABSENT: motor sensory deficit Psychiatric exam: PRESENT: appropriate affect, normal mood. ABSENT: homicidal ideation, suicidal ideation Results Laboratory Results: 12/17/18 04:40 12/17/18 04:40 12/16/18 12/17/18 12/17/18 08:30 04:40 04:40 WBC 6.8 RBC 2.88 L Hgb 9.2 L Hct 27.8 L MCV 96 MCH 32.0 MCHC 33.2 RDW 16.2 H Plt Count 203 Seg Neutrophils % Not Reportable Lymphocytes % Not Reportable Monocytes % Not Reportable Eosinophils % Not Reportable Basophils % Not Reportable Absolute Neutrophils Not Reportable Absolute Lymphocytes Not Reportable Absolute Monocytes Not Reportable Absolute Eosinophils Not Reportable Absolute Basophils Not Reportable Sodium 140.4 141.0 Potassium 4.9 5.4 H Chloride 100 102 Carbon Dioxide 38 H 36 H Anion Gap 2 L 3 L BUN 35 H 32 H Creatinine 0.76 0.87 Est GFR ( Amer) > 60 > 60 Est GFR (Non-Af Amer) > 60 > 60 Glucose 125 H 155 H Calcium 8.6 8.8 Magnesium 2.3 Total Bilirubin 0.3 0.2 AST 23 16 ALT 33 28 Alkaline Phosphatase 44 56 Total Protein 5.3 L 4.8 L Albumin 3.0 L 2.8 L Impressions: Abdomen/Pelvis CT 12/09/18 17:25 IMPRESSION: 1. Allowing for slight nonspecific right hydronephrosis, negative for acute abnormality. No obstructing stones. 2. Sidhu catheter is well within the bladder and has a coiled appearance. This could perhaps be adjusted, pulled back some. Chest X-Ray 12/13/18 00:00 IMPRESSION: STABLE APPEARANCE OF THE CHEST. KUB X-Ray 12/14/18 00:00 IMPRESSION: NO RADIOGRAPHIC EVIDENCE FOR ACUTE ABDOMINAL DISEASE. Assessment and Plan - Diagnosis (1) MARY LOU (acute kidney injury) Is this a current diagnosis for this admission?: Yes Plan: 12/11/2018-patient admitted with acute kidney injury latest creatinine is 1.34. Creatinine on admission is 1.64. Acute kidney injury is resolving. Patient [place] creatinine is around 1.0. Patient is receiving IV fluids and her appetite is very poor. Acute kidney injury may be secondary to poor oral intake or UTI. 12/12/2018-creatinine today is 1.19 improved from yesterday. On admission creatinine is 1.64. Acute kidney injury most likely secondary to poor oral intake is resolving. pt is presently on IV fluids normal saline at 50 cc/h. 12/13/2018-lab work today is pending and creatinine from yesterday is 1.19. Admitted with creatinine of 1.64 acute kidney injury is resolving. Because of the high blood pressures normal saline is discontinued this morning. 12/14/2018-latest creatinine is 0.99 on admission creatinine is 1.64 acute kidney injury is resolving. Most likely secondary to prerenal causes. Today's labs are pending. 12/15/2018-patient's latest creatinine is 0.89 on admission it was 1.64 acute kidney injury resolved. 12/16/2018-latest creatinine is 0.79 acute kidney injury most likely secondary to prerenal causes resolved. 12/17/2018-latest creatinine is 0.87, MARY LOU is resolved. (2) Complicated UTI (urinary tract infection) Is this a current diagnosis for this admission?: Yes Plan: Continue current antibiotics. 12/11/2018-urine culture came back positive for ESBL. ESBL E. coli. On meropenem. Afebrile. Plan is to continue the present management. 12/12/2018-urine culture is positive for ESBL E. coli. Presently on meropenem. Afebrile. 12/13/2018-urine culture is positive for ESBL E. coli presently on meropenem afebrile. Plan is to continue the management for now. 12/14/2018-patient is afebrile T-max is 97.3 on meropenem for UTI. 12/15/2018-patient is receiving meropenem for UTI. Plan is to discontinue meropenem from today. T-max is 98.3. Blood cultures are negative. 12/16/2018-urine culture came back positive for ESBL E. coli initially treated with meropenem T-max 97.5. Blood cultures are negative. Meropenem was discontinued yesterday. 019-patient T-max is 98.2 urine culture is positive for ESBL E. coli treated with meropenem presently she is off the antibiotics for the last 48 hours afebrile. (3) Chronic respiratory failure due to COPD Is this a current diagnosis for this admission?: Yes Plan: Keep the patient on supplemental oxygen and was started on bronchodilator and Solu-Medrol since patient has been on prednisone 12/11/2018-patient has history of COPD and lung cancer. Acute respiratory failure most likely secondary to COPD/lung cancer. Pulse ox on 2 L is 97%. 12/12/2018-patient has history of COPD and lung cancer admitted with chronic re spiratory failure due to COPD pulse ox is 100% on 2.5 L. On examination chest bilateral entry was decreased no wheezing no crepitations. 12/13/2018-patient has history of COPD, lung cancer admitted with acute on chronic respiratory failure secondary to COPD. Pulse ox today is percent on 4 L. Examination chest bilateral entry was decreased bilateral mild wheezing is present. X-ray done this morning negative for acute pathology. 12/14/2018-patient has history of COPD lung cancer admitted with acute on chronic respiratory failure. Pulse ox is 100% 4 L. 12/15/2018-patient has history of COPD, lung cancer admitted with acute on chronic respiratory failure pulse ox is 96% room air today. 12/16/2018-patient has history of COPD and lung cancer admitted with acute respiratory failure with hypoxia pulse ox is 94% today on room air. -patient has history of COPD and lung cancer admitted for acute on chronic respiratory failure which was resolved pulse ox today is 96% on room air. (4) Coronary artery disease Qualifiers: Coronary Disease-Associated Artery/Lesion type: [place] artery Is this a current diagnosis for this admission?: Yes (5) Hypertension Qualifiers: Hypertension type: essential hypertension Qualified Code(s): I10 - Essential (primary) hypertension Is this a current diagnosis for this admission?: Yes Plan: Continue her home medication 12/11/2018-patient blood pressure is 132/78. Stable. Plan is to continue the present management. Presently she is off the antihypertensives. 12/12/2018-blood pressure today's 150/96. Slightly elevated. Presently she is is not on any blood pressure medications. 12/13/2018-latest blood pressure was 170/107 on metoprolol 25 mg p.o. daily, hydralazine 10 mg IV every 4 as needed initiated. 12/14/2018 latest blood pressure is 160/93 improved from yesterday. Plan is to continue the present management. 12/15/2018 blood pressure today is 150/84 stable. Presently on metoprolol 25 mg p.o. daily, hydralazine 10 mg IV every 4 as needed plan is to continue the present management. 12/16/2018-blood pressure today is 157/76. Stable. 12/17/2018-blood pressure today is 145/67 plan is to continue the present management. (6) Diastolic CHF, chronic Is this a current diagnosis for this admission?: Yes Plan: Compensated. 12/11/2018-patient has history of chronic diastolic congestive heart failure. Patient is euvolemic. 12/13/2018-patient has history of chronic diastolic heart failure. Plan to restart on Lasix 20 mg p.o. daily from today. Patient still looks euvolemic. But the blood pressures are significantly elevated this morning. 12/15/2018-patient has a history of chronic diastolic congestive heart failure patient is euvolemic. Present on Lasix 20 mg p.o. daily. Plan is to continue the present management. 12/17/2018-patient has history of chronic diastolic heart failure and patient is euvolemic. Presently on Lasix 20 mg p.o. daily. Euvolemic. (7) Chronic anemia Is this a current diagnosis for this admission?: Yes Plan: Etiology unclear. Most probably due to anemia of chronic disease. We will do stool for occult blood. 12/11/2018-patient has history of anemia of chronic disease. Hemoglobin is 8.4. Stable. 12/12/2018-patient hemoglobin 8.4 stable. 12/13/2018-patient's latest hemoglobin is 8.4 today's labs are pending. 22,019-patient's hemoglobin is 9.2 stable. Patient has history of anemia of chronic disease. Most likely secondary to underlying malignancy. (8) History of lung cancer Is this a current diagnosis for this admission?: No (9) Hyperkalemia Is this a current diagnosis for this admission?: Yes Plan: 12/15/2018-serum potassium level is 5.4 today she was given Kayexalate 50 mg 1 dose plan to repeat the labs tomorrow. 12/16/2018-serum potassium level today is 4.9 hyperkalemia is resolved. 12/17/2018-patient serum potassium is 5.4 today to stop potassium supplementations from today. - Time Time Spent with patient: 15-24 minutes Medications reviewed and adjusted accordingly: Yes Anticipated discharge: SN[facility]
[2018-12-17] MEDS: DOCUSATE SODIUM 100 MG CAPSULE PO SCH ×2 (09:45→17:15)
[2018-12-17] MEDS: FLUTICASONE/VILANTEROL 200-25 MCG/DOSE IH SCH (09:45)
[2018-12-17] MEDS: TIOTROPIUM BROMIDE DPI 5 CAP/KIT (18 MCG/CAP) IH SCH (09:46)
[2018-12-17] MEDS: NYSTATIN CREAM 15 GM TOP SCH ×2 (09:46→21:38)
[2018-12-17] MEDS: FAMOTIDINE 20 MG TABLET PO SCH ×2 (09:46→21:37)
[2018-12-17] MEDS: METHYLPREDNISOLONE INJ 40 MG/1 ML SDV IV SCH ×2 (09:46→21:37)
[2018-12-17] MEDS: MULTIVITAMIN TABLET PO SCH (09:47)
[2018-12-17] MEDS: METOPROLOL SUCCINATE 25 MG TAB.SR.24H PO SCH (09:47)
[2018-12-17] MEDS: LEVALBUTEROL HCL NEB 1.25 MG/3 ML AMPUL NEB PRN ×3 (10:58→21:26)
[2018-12-17 12:51] LABS: PATH REVIEW PATHOLOGIST REVIEWED
[2018-12-18] MEDS: LEVOTHYROXINE SODIUM 0.1 MG TABLET PO SCH (05:25)
[2018-12-18] MEDS: HEPARIN SOD (PORCINE) 5,000 UNIT/ML 1 ML SYRINGE SUBCUT SCH ×2 (05:25→15:07)
[2018-12-18] MEDS: LEVALBUTEROL HCL NEB 1.25 MG/3 ML AMPUL NEB PRN (08:25)
[2018-12-18] MEDS: FLUTICASONE/VILANTEROL 200-25 MCG/DOSE IH SCH (10:28)
[2018-12-18] MEDS: TIOTROPIUM BROMIDE DPI 5 CAP/KIT (18 MCG/CAP) IH SCH (10:29)
[2018-12-18] MEDS: DOCUSATE SODIUM 100 MG CAPSULE PO SCH ×2 (10:30→17:29)
[2018-12-18] MEDS: METOPROLOL SUCCINATE 25 MG TAB.SR.24H PO SCH (10:30)
[2018-12-18] MEDS: FAMOTIDINE 20 MG TABLET PO SCH (10:30)
[2018-12-18] MEDS: MULTIVITAMIN TABLET PO SCH (10:30)
[2018-12-18] MEDS: NYSTATIN CREAM 15 GM TOP SCH (10:30)
[2018-12-18] MEDS: METHYLPREDNISOLONE INJ 40 MG/1 ML SDV IV SCH (10:30)
--- NOTE | 2018-12-18 13:13 | PDOC DISCHARGE SUMMARY ---
General - Admit/Disc Date/PCP Admission Date/Primary Care Provider: 12/09/18 17:52 Discharge Date: 12/18/18 - Discharge Diagnosis (1) MARY LOU (acute kidney injury) Is this a current diagnosis for this admission?: Yes (2) Chronic anemia Is this a current diagnosis for this admission?: Yes (3) Chronic respiratory failure due to COPD Is this a current diagnosis for this admission?: Yes (4) Complicated UTI (urinary tract infection) Is this a current diagnosis for this admission?: Yes (5) Coronary artery disease Is this a current diagnosis for this admission?: Yes (6) Hypertension Is this a current diagnosis for this admission?: Yes - Additional Information Resuscitation Status: Do Not Resuscitate Discharge Diet: As Tolerated Discharge Activity: Activity As Tolerated Home Medications: Albuterol Sulfate [Proair HFA Inhalation Aerosol 8.5 gm MDI] 2 puff IH Q4HP PRN 12/10/18 Albuterol Sulfate [Ventolin 0.083% Neb 2.5 mg/3 mL Ampul] 2.5 mg NEB RTQ4HP PRN 12/10/18 Fluconazole [Diflucan] 150 mg PO ONCEP PRN 12/10/18 Fluticasone/Salmeterol [Advair 250-50 Diskus 14 Dose/Diskus] 1 puff IH Q12 12/10/18 Furosemide [Lasix 20 mg Tablet] 20 mg PO QAM 12/10/18 Ipratropium/Albuterol Sulfate [Duoneb 3 ml Ampul] 3 ml NEB RTQ6 12/10/18 Levothyroxine Sodium 100 mcg PO Q6AM 12/10/18 Metoprolol Succinate [Toprol Xl 25 mg Tab.sr] 25 mg PO DAILY 12/10/18 Multivitamin [Multiple Vitamins] 1 tab PO DAILY 12/10/18 Nystatin 1 applic TOP BID 12/10/18 Nystatin [Mycostatin Cream 15 gm] 1 applic TOP BID 12/10/18 Prednisone [Deltasone] 60 mg PO [id number] 12/10/18 Tiotropium [place]o [Spiriva Handihaler 5 Cap/Kit (18 Mcg/Cap)] 1 cap IH DAILY 12/10/18 Acetaminophen [Tylenol 325 mg Tablet] 650 mg PO Q4HP PRN tablet 12/18/18 Docusate Sodium [Colace 100 mg Capsule] 100 mg PO BID capsule 12/18/18 Famotidine [Pepcid 20 mg Tablet] 20 mg PO Q12 tablet 12/18/18 History of Present Illness History of Present Illness: TRENTON MCCOY is a 73 year old female Hospital Course Hospital Course: 73 year old female patient with multiple comorbidities including history of lung cancer with metastasis to the brain. CHF diastolic, coronary artery disease, hypertension, hyperlipidemia, COPD, hypothyroidism, chronic respiratory failure O2 dependent 20/02 presents with chief complaint of lower abdominal pain and shortness of breath. Complains of crampy pain localized to her bladder area. Patient was seen 3 days ago at this hospital where her urine culture grew E. coli ESBL and at that time sputum culture also done and it grew Pseudomonas aeruginosa which is pansensitive. Patient denies any chills, fever, chest pain, palpitation or diaphoresis. She has underlying chronic cough and shortness of breath. Her initial blood work is unremarkable except for hemoglobin of 8.8 and creatinine of 1.64. Her chest x-ray reported as stable. Patient has been treated as outpatient with Levaquin and Macrobid by her primary care physician for 3 days and patient stated she was having hallucinations while taking the above-mentioned medications. When I evaluate the patient patient has marketed suprapubic tenderness. 12/11/2018-patient is comfortably in the bed sleeping. Patient appetite is very poor breakfast is at bedside. Woke up and calling communicating okay. Not in distress. I spoke to the patient's daughter who has the power of criminal attorney and she said her mom's wishes are DNR. But if she goes into respiratory failure she wants her to be intubated. No acute events in the last 24 hours afebrile. Urine culture came back positive for ESBL and contact isolation. Presently patient is on meropenem. 12/12/2018-no acute events in the last 24 hours. Patient is afebrile. Patient's daughter who has the power of criminal attorney wants DNR but at the same time requesting intubation if necessary. Patient is sleepy most of the time her appetite is very poor breakfast is still at bedside. 12/13/2018-patient's blood pressure this morning systolic is more than 200 in the 20s and a heart rate went up to more than 120 she was started on hydralazine 10 mg IV every 4 as needed latest blood pressure is 170/107 patient complains of nausea we are going to give nausea medication heart rate come down to 100. Chest x-ray done this morning negative for acute pathology. On examination chest bilateral entry was decreased mild wheezing is present in bilateral lung curtis. Lab work with this morning is pending. 12/14/2018-patient has one episode of emesis this morning. WBC count went up to 16,800 yesterday. Plan to do the KUB and repeat labs today. Presently on meropenem for ESBL E. coli. She is in contact isolation. In my opinion patient needs to go to a rehab facility. Patient is afebrile. 12/15/2018-no acute events in the last 24 hours. Patient is afebrile. No more nausea vomiting or diarrhea noticed. Potassium is 5.4 plan to give Kayexalate 15 g p.o. today. To stop potassium supplementations. 12/16/2018-no acute events in the last 24 hours. Patient is afebrile. Comfortably sleeping in the bed woke up and calling denies any complaints. 12/17/2018-no acute events in the last 24 hours. Patient is afebrile. Portable in the bed communicating okay. Hospital course: (1) MARY LOU (acute kidney injury) 12/11/2018-patient admitted with acute kidney injury latest creatinine is 1.34. Creatinine on admission is 1.64. Acute kidney injury is resolving. Patient baseline creatinine is around 1.0. Patient is receiving IV fluids and her appetite is very poor. Acute kidney injury may be secondary to poor oral intake or UTI. 12/12/2018-creatinine today is 1.19 improved from yesterday. On admission creatinine is 1.64. Acute kidney injury most likely secondary to poor oral intake is resolving. pt is presently on IV fluids normal saline at 50 cc/h. 12/13/2018-lab work today is pending and creatinine from yesterday is 1.19. Admitted with creatinine of 1.64 acute kidney injury is resolving. Because of the high blood pressures normal saline is discontinued this morning. 12/14/2018-latest creatinine is 0.99 on admission creatinine is 1.64 acute kidney injury is resolving. Most likely secondary to prerenal causes. Today's labs are pending. 12/15/2018-patient's latest creatinine is 0.89 on admission it was 1.64 acute kidney injury resolved. 12/16/2018-latest creatinine is 0.79 acute kidney injury most likely secondary to prerenal causes resolved. 12/17/2018-latest creatinine is 0.87, MARY LOU is resolved. (2) Complicated UTI (urinary tract infection) Continue current antibiotics. 12/11/2018-urine culture came back positive for ESBL. ESBL E. coli. On meropenem. Afebrile. Plan is to continue the present management. 12/12/2018-urine culture is positive for ESBL E. coli. Presently on meropenem. Afebrile. 12/13/2018-urine culture is positive for ESBL E. coli presently on meropenem afebrile. Plan is to continue the management for now. 12/14/2018-patient is afebrile T-max is 97.3 on meropenem for UTI. 12/15/2018-patient is receiving meropenem for UTI. Plan is to discontinue meropenem from today. T-max is 98.3. Blood cultures are negative. 12/16/2018-urine culture came back positive for ESBL E. coli initially treated with meropenem T-max 97.5. Blood cultures are negative. Meropenem was discontinued yesterday. -patient T-max is 98.2 urine culture is positive for ESBL E. coli treated with meropenem presently she is off the antibiotics for the last 48 hours afebrile. (3) Chronic respiratory failure due to COPD Keep the patient on supplemental oxygen and was started on bronchodilator and Solu-Medrol since patient has been on prednisone 12/11/2018-patient has history of COPD and lung cancer. Acute respiratory failure most likely secondary to COPD/lung cancer. Pulse ox on 2 L is 97%. 12/12/2018-patient has history of COPD and lung cancer admitted with chronic resp iratory failure due to COPD pulse ox is 100% on 2.5 L. On examination chest bilateral entry was decreased no wheezing no crepitations. 12/13/2018-patient has history of COPD, lung cancer admitted with acute on chronic respiratory failure secondary to COPD. Pulse ox today is percent on 4 L. Examination chest bilateral entry was decreased bilateral mild wheezing is present. X-ray done this morning negative for acute pathology. 12/14/2018-patient has history of COPD lung cancer admitted with acute on chronic respiratory failure. Pulse ox is 100% 4 L. 12/15/2018-patient has history of COPD, lung cancer admitted with acute on chronic respiratory failure pulse ox is 96% room air today. 12/16/2018-patient has history of COPD and lung cancer admitted with acute respiratory failure with hypoxia pulse ox is 94% today on room air. 22,019-patient has history of COPD and lung cancer admitted for acute on chronic respiratory failure which was resolved pulse ox today is 96% on room air. (4) Coronary artery disease (5) Hypertension Continue her home medication 12/11/2018-patient blood pressure is 132/78. Stable. Plan is to continue the present management. Presently she is off the antihypertensives. 12/12/2018-blood pressure today's 150/96. Slightly elevated. Presently she is is not on any blood pressure medications. 12/13/2018-latest blood pressure was 170/107 on metoprolol 25 mg p.o. daily, hydralazine 10 mg IV every 4 as needed initiated. 12/14/2018 latest blood pressure is 160/93 improved from yesterday. Plan is to continue the present management. 12/15/2018 blood pressure today is 150/84 stable. Presently on metoprolol 25 mg p.o. daily, hydralazine 10 mg IV every 4 as needed plan is to continue the present management. 12/16/2018-blood pressure today is 157/76. Stable. 12/17/2018-blood pressure today is 145/67 plan is to continue the present management. (6) Diastolic CHF, chronic Compensated. 12/11/2018-patient has history of chronic diastolic congestive heart failure. Patient is euvolemic. 12/13/2018-patient has history of chronic diastolic heart failure. Plan to restart on Lasix 20 mg p.o. daily from today. Patient still looks euvolemic. But the blood pressures are significantly elevated this morning. 12/15/2018-patient has a history of chronic diastolic congestive heart failure patient is euvolemic. Present on Lasix 20 mg p.o. daily. Plan is to continue the present management. 12/17/2018-patient has history of chronic diastolic heart failure and patient is euvolemic. Presently on Lasix 20 mg p.o. daily. Euvolemic. (7) Chronic anemia Etiology unclear. Most probably due to anemia of chronic disease. We will do stool for occult blood. 12/11/2018-patient has history of anemia of chronic disease. Hemoglobin is 8.4. Stable. 12/12/2018-patient hemoglobin 8.4 stable. 12/13/2018-patient's latest hemoglobin is 8.4 today's labs are pending. 22,019-patient's hemoglobin is 9.2 stable. Patient has history of anemia of chronic disease. Most likely secondary to underlying malignancy. (8) History of lung cancer (9) Hyperkalemia 12/15/2018-serum potassium level is 5.4 today she was given Kayexalate 50 mg 1 dose plan to repeat the labs tomorrow. 12/16/2018-serum potassium level today is 4.9 hyperkalemia is resolved. 12/17/2018-patient serum potassium is 5.4 today to stop potassium supplementations from today. Patient is back to baseline. Renal function improved. She was treated with IV antibiotics for resistant bacteria for UTI. She has been off antibiotics now and doing very well. She wants to go home. Okay for discharge. Time spent for discharge 35 minutes. Physical Exam Vital Signs: Temp Pulse Resp BP Pulse Ox 98.2 F 96 18 141/85 H 97 12/18/18 07:27 12/18/18 09:00 12/18/18 08:25 12/18/18 07:27 12/18/18 08:25 Intake & Output 12/17/18 12/18/18 12/19/18 06:59 06:59 06:59 Intake Total 1530 700 Output Total 1050 2325 Balance 480 -1625 Weight 181 lb 10.574 oz 177 lb 7.554 oz Exam: General appearance: PRESENT: no acute distress Head exam: PRESENT: atraumatic Eye exam: PRESENT: PERRLA Mouth exam: PRESENT: moist, tongue midline Teeth exam: PRESENT: poor dentation Neck exam: ABSENT: carotid bruit, JVD, lymphadenopathy, thyromegaly Respiratory exam: PRESENT: decreased breath sounds Cardiovascular exam: PRESENT: RRR. ABSENT: diastolic murmur, rubs, systolic murmur GI/Abdominal exam: PRESENT: normal bowel sounds, soft. ABSENT: distended, guarding, mass, organolmegaly, rebound, tenderness Rectal exam: PRESENT: deferred Extremities exam: PRESENT: full ROM. ABSENT: calf tenderness, clubbing, pedal edema Neurological exam: PRESENT: alert, awake, oriented to person, oriented to place, oriented to time, oriented to situation, CN II-XII grossly intact. ABSENT: motor sensory deficit Psychiatric exam: PRESENT: appropriate affect, normal mood. ABSENT: homicidal ideation, suicidal ideation Results Laboratory Results: 12/17/18 04:40 12/17/18 04:40 Impressions: Abdomen/Pelvis CT 12/09/18 17:25 IMPRESSION: 1. Allowing for slight nonspecific right hydronephrosis, negative for acute abnormality. No obstructing stones. 2. Sidhu catheter is well within the bladder and has a coiled appearance. This could perhaps be adjusted, pulled back some. Chest X-Ray 12/13/18 00:00 IMPRESSION: STABLE APPEARANCE OF THE CHEST. KUB X-Ray 12/14/18 00:00 IMPRESSION: NO RADIOGRAPHIC EVIDENCE FOR ACUTE ABDOMINAL DISEASE. Qualifiers - * PATIENT BEING DISCHARGED WITH ANY OF THE FOLLOWING DIAGNOSIS: No Acute Heart Failure Is this a Heart Failure Patient?: No
[2018-12-18 17:46] VITALS: BP 151/79
== END 2018-12-18 18:29 | disposition home or self-care (01) | DRG 682 ==
LOC: ER 15:14 → EH 17:52 → 3W 19:42
PROVIDERS: ADMIT Internal Medicine; ATTEND Internal Medicine
PROC: 3E0F73Z Introduction of Anti-inflammatory into Respiratory Tract, Via Natural or Artificial Opening (ICD-10-PCS; principal; 2018-12-09)
DX: N17.9 Acute kidney failure, unspecified (principal); J96.21 Acute and chronic respiratory failure with hypoxia; I50.32 Chronic diastolic (congestive) heart failure; J44.9 Chronic obstructive pulmonary disease, unspecified; Z66 Do not resuscitate; I11.0 Hypertensive heart disease with heart failure; I25.10 Atherosclerotic heart disease of native coronary artery without angina pectoris; E78.5 Hyperlipidemia, unspecified; E03.9 Hypothyroidism, unspecified; B96.20 Unspecified Escherichia coli [E. coli] as the cause of diseases classified elsewhere; B96.5 Pseudomonas (aeruginosa) (mallei) (pseudomallei) as the cause of diseases classified elsewhere; D63.0 Anemia in neoplastic disease; E87.5 Hyperkalemia; K21.9 Gastro-esophageal reflux disease without esophagitis; F32.9 Major depressive disorder, single episode, unspecified; F03.90 Unspecified dementia, unspecified severity, without behavioral disturbance, psychotic disturbance, mood disturbance, and anxiety; E86.0 Dehydration; M10.9 Gout, unspecified; Z90.49 Acquired absence of other specified parts of digestive tract; I25.2 Old myocardial infarction; Z79.899 Other long term (current) drug therapy; Z79.1 Long term (current) use of non-steroidal anti-inflammatories (NSAID); Z99.81 Dependence on supplemental oxygen; Z85.118 Personal history of other malignant neoplasm of bronchus and lung; Z87.891 Personal history of nicotine dependence; Z79.890 Hormone replacement therapy; Z79.52 Long term (current) use of systemic steroids; Z88.1 Allergy status to other antibiotic agents; Z88.3 Allergy status to other anti-infective agents; Z88.0 Allergy status to penicillin
CPT/HCPCS: 36415; 71045; 74018; 74176; 80048; 80053; 81001; 82272; 82550; 82607; 82728; 82746; 82803; 83540; 83550; 83605; 83690; 83735; 84443; 84484; 85025; 85045; 86850; 86900; 86901; 87040; 87070; 87077; 87086; 87088; 87186; 87205; 93005; 93010; 94640; 96361; 96365; 99285; J0360; J1644; J1940; J2185; J2405; J2920; J3490; J7030; J7040; J7620

== ENCOUNTER 2018-12-30 17:17 | Emergency (ER) | payer MEDICARE, OTHER ==
[2018-12-30] MEDS ORDERED: PREDNISONE 20 MG TABLET PO ONE (17:42)
[2018-12-30] MEDS ORDERED: IPRATROPIUM/ALBUTEROL 0.5-2.5 MG/3 ML AMPUL NEB ONE ×2 (17:42→21:09)
--- NOTE | 2018-12-30 17:46 | ER Document Report ---
Addendum entered and electronically signed by REMBERTO CHAPMAN NP 12/30/18 17:48: Course - Re-evaluation Re-evalutation: 12/30/18 17:47 Review of patient's previous hospital admission does demonstrate a history of lung cancer with mets to the brain. - Vital Signs Vital signs: Temp Pulse Resp BP Pulse Ox 98.3 F 124 H 24 H 110/67 93 12/30/18 17:25 12/30/18 17:25 12/30/18 17:25 12/30/18 17:25 12/30/18 17:25 Original Note: ED Medical Screen (RME) - General Chief Complaint: Fall Injury Stated Complaint: FALL/HEAD PAIN, SKIN TEAR Time Seen by Provider: 12/30/18 17:35 Mode of Arrival: Wheelchair Information source: Patient, Relative Notes: Patient reports falling out of the wheelchair today. Family member was attempting to bring her in from outside and after they went over a bump in the threshold patient slid out of wheelchair landing on her bottom. Patient complains of neck pain. Patient did hit her head although there was no loss of consciousness. Patient also reports chest pain and shortness of breath that started yesterday. Patient tachycardic in triage. hx: Diabetes, asthma, COPD, CHF I have greeted and performed a rapid initial assessment of this patient. A comprehensive ED assessment and evaluation of the patient, analysis of test results and completion of the medical decision making process will be conducted by additional ED providers. TRAVEL OUTSIDE OF THE [place] IN LAST 30 DAYS: No - Related Data Allergies/Adverse Reactions: azithromycin Allergy (Verified 12/30/18 17:18) cephalexin Allergy (Verified 12/30/18 17:18) Penicillins Allergy (Verified 12/30/18 17:18) amoxicillin [Amoxicillin] Adverse Reaction (Verified 12/30/18 17:18) visual hallucinations erythromycin base [Erythromycin Base] Adverse Reaction (Verified 12/30/18 17:18) visual hallucinations Potassium Clavulanate * [From Augmentin] Adverse Reaction (Verified 12/30/18 17:18) visual hallucinations Past Medical History - Social History Chew tobacco use (# tins/day): No Frequency of alcohol use: None Drug Abuse: None - Past Medical History Cardiac Medical History: Reports: Hx Atrial Fibrillation, Hx Congestive Heart Failure, Hx Coronary Artery Disease, Hx Heart Attack, Hx Hypertension Denies: Hx DVT, Hx Hypercholesterolemia, Hx Pulmonary Embolism Pulmonary Medical History: Reports: Hx Asthma, Hx Bronchitis, Hx COPD, Hx Pneumonia, Hx Respiratory Failure - Chronic respiratory failure Denies: Hx Sleep Apnea, Hx Tuberculosis Neurological Medical History: Denies: Hx Seizures Endocrine Medical History: Reports: Hx Diabetes Mellitus Type 2, Hx Hypothyroidism. 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 Denies: Hx Cirrhosis, Hx Hepatitis, Hx Ulcer Musculoskeltal Medical History: Reports Hx Arthritis, Reports Hx Gout, Denies Hx Multiple Sclerosis, Reports Hx Musculoskeletal Deformity, Reports Hx Musculoskeletal Trauma Skin Medical History: Denies Hx Eczema, Denies Hx Psoriasis Psychiatric Medical History: Reports: Hx Dementia, Hx Depression Denies: Hx Bipolar Disorder, Hx Schizophrenia Infectious Medical History: Reports: Hx C-Diff. Denies: Hx Hepatitis Past Surgical History: Reports: Hx Cholecystectomy, Hx Orthopedic Surgery - Foot surgery, Other - cataract bilateral - Immunizations Immunizations up to date: Yes Hx Diphtheria, Pertussis, Tetanus Vaccination: Yes History of Influenza Vaccine for 04/2017 - 09/2017 Season: Yes Influenza Administration Date for 04/2017 - 09/2017 Season: 08/08/17 Physical Exam - Vital signs Vitals: Temp Pulse Resp BP Pulse Ox 98.3 F 124 H 24 H 110/67 93 12/30/18 17:25 12/30/18 17:25 12/30/18 17:25 12/30/18 17:25 12/30/18 17:25 - Respiratory Breath sounds: Nonproductive cough, Rhonchi, Wheezing - Cardiovascular Rhythm: Tachycardia Heart sounds: S1 appreciated, S2 appreciated Course - Vital Signs Vital signs: Temp Pulse Resp BP Pulse Ox 98.3 F 124 H 24 H 110/67 93 12/30/18 17:25 12/30/18 17:25 12/30/18 17:25 12/30/18 17:25 12/30/18 17:25
[2018-12-30] MEDS ORDERED: ASPIRIN 81 MG TABLET, CHEWABLE PO ONE (17:48)
[2018-12-30] MEDS ORDERED: HYDROCODONE/ACETAMINOPHEN 5-325 MG TABLET PO ONE (18:00)
--- NOTE | 2018-12-30 19:44 | RADIOLOGY REPORT (SQ) ---
EXAM DESCRIPTION: SACRUM AND COCCYX COMPLETED DATE/TIME: 12/30/2018 7:05 pm REASON FOR STUDY: fall from WC, back pain COMPARISON: None. NUMBER OF VIEWS: Three views. TECHNIQUE: AP, lateral, and tilt views of the sacrum and coccyx. LIMITATIONS: None. FINDINGS: MINERALIZATION: Normal. BONES: No acute fracture or dislocation. No worrisome bone lesions. SOFT TISSUES: No significant soft tissue swelling. No foreign body. OTHER: No other significant finding. IMPRESSION: No fracture identified. TECHNICAL DOCUMENTATION: JOB ID: [id number] [employer]- All Rights Reserved Reading location - IP/workstation name: [email or web address]
--- NOTE | 2018-12-30 19:54 | RADIOLOGY REPORT (SQ) ---
EXAM DESCRIPTION: CHEST 2 VIEWS COMPLETED DATE/TIME: 12/30/2018 7:05 pm REASON FOR STUDY: cp, cough COMPARISON: Chest x-ray 12/13/2018, 07/07/2018. CT chest 10/03/2018, 07/07/2018. EXAM PARAMETERS: NUMBER OF VIEWS: two views TECHNIQUE: Digital Frontal and Lateral radiographic views of the chest acquired. RADIATION DOSE: NA LIMITATIONS: none FINDINGS: LUNGS AND PLEURA: No new consolidation, pneumothorax or pleural effusion. There is persi stent volume loss at the right lung. MEDIASTINUM AND HILAR STRUCTURES: Persistent soft tissue fullness at the right perihilar region. HEART AND VASCULAR STRUCTURES: Heart normal size. No evidence for failure. BONES: No acute findings. HARDWARE: None in the chest. IMPRESSION: Persistent volume loss at the right lung with soft tissue fullness at the right perihila r region. No new consolidation or pleural effusion. TECHNICAL DOCUMENTATION: JOB ID: [id number] [employer]- All Rights Reserved Reading location - IP/workstation name: [email or web address]
--- NOTE | 2018-12-30 19:58 | RADIOLOGY REPORT (SQ) ---
EXAM DESCRIPTION: T SPINE AP/LAT COMPLETED DATE/TIME: 12/30/2018 7:05 pm REASON FOR STUDY: fall from WC, back pain COMPARISON: Thoracic spine x-ray 05/23/2012. Chest x-ray 12/13/2018, 12/30/2018. CT chest 10/03/2018. NUMBER OF VIEWS: Three views. TECHNIQUE: AP, lateral and swimmer's for radiographic images acquired of the thoracic spine. LIMITATIONS: None. FINDINGS: MINERALIZATION: Osteopenia. ALIGNMENT: There is levoscoliosis of the thoracic spine. VERTEBRAE: No compression fracture. DISCS: Multilevel disc space narrowing. HARDWARE: None in the spine. MEDIASTINUM AND SOFT TISSUES: The heart is not enlarged. Redemonstration of soft tissue fullness at the right perihilar region. VISUALIZED LUNGS: Clear. IMPRESSION: No radiographic evidence for compression fracture of the thoracic spine. Degenerative c hanges. TECHNICAL DOCUMENTATION: JOB ID: [id number] 2010 [employer]- All Rights Reserved Reading location - IP/workstation name: [email or web address]
[2018-12-30] MEDS: ALBUTEROL SULFATE 0.083% NEB 2.5 MG/3 ML AMPUL NEB SCH ×2 (20:02→21:11)
--- NOTE | 2018-12-30 20:04 | RADIOLOGY REPORT (SQ) ---
EXAM DESCRIPTION: L SPINE WHOLE COMPLETED DATE/TIME: 12/30/2018 7:05 pm REASON FOR STUDY: fall from WC, back pain COMPARISON: Lumbar spine x-ray 05/23/2012. NUMBER OF VIEWS: Five views including obliques. TECHNIQUE: AP, lateral, oblique, and sacral radiographic images acquired of the lumbar spine. LIMITATIONS: None. FINDINGS: MINERALIZATION: Osteopenia. ALIGNMENT: Mild dextrocurvature of the lumbar spine. VERTEBRAE: No compression fracture. DISCS: Multilevel disc space narrowing. POSTERIOR ELEMENTS: Pedicles and facets are intact. No pars defect. Facet arthropathy is present. HARDWARE: None in the spine. Surgical clips are noted at the right upper quadrant. PARASPINAL SOFT TISSUES: Normal. PELVIS: Intact as visualized. SI joints intact. OTHER: Vascular calcifications are noted. IMPRESSION: No radiographic evidence for compression fracture at the lumbar spine. Degenerative mauri nges. TECHNICAL DOCUMENTATION: JOB ID: [id number] 2010 [employer]- All Rights Reserved Reading location - IP/workstation name: [email or web address]
--- NOTE | 2018-12-30 20:19 | RADIOLOGY REPORT (SQ) ---
EXAM DESCRIPTION: XR FOOT 3 OR MORE VIEWS COMPLETED DATE/TME: 12/30/2018 19:16 CLINICAL HISTORY: L foot pain, bruising COMPARISON: None FINDINGS: Three x-ray views of the left foot were submitted. There is no acute fracture or dislocation. Decreased bone mineralization compatible with osteopenia. There is no radiopaque foreign body material. IMPRESSION: No acute fracture or dislocation.
[2018-12-30] MEDS ORDERED: PREDNISONE 20 MG TABLET ONE (20:22)
[2018-12-30] MEDS ORDERED: ASPIRIN 81 MG TABLET, CHEWABLE ONE (20:23)
[2018-12-30 21:07] LABS: ABSOLUTE BASOPHILS # (AUTO) 0.1 10^3/uL (0.0-0.2); ABSOLUTE EOSINOPHILS # (AUTO) 0.3 10^3/uL (0.0-0.6); ABSOLUTE LYMPHOCYTES (AUTO) 0.9 10^3/uL (0.5-4.7); ABSOLUTE MONOCYTES (AUTO) 0.7 10^3/uL (0.1-1.4); ABSOLUTE NEUT (AUTO) 8.1 10^3/uL (1.7-8.2); EOSINOPHILS % (AUTO) 2.8 % (0-6); HEMATOCRIT 28.8 % (36.0-47.0); HEMOGLOBIN 9.9 g/dL (12.0-15.5); LYMPHOCYTES % (AUTO) 9.4 % (13-45); MEAN CORPUSCULAR HEMOGLOBIN 33.9 pg (27.0-33.4); MEAN CORPUSCULAR HGB CONC 34.3 g/dL (32.0-36.0); MEAN CORPUSCULAR VOLUME 99 fl (80-97); MONOCYTES % (AUTO) 6.7 % (3-13); PLATELET COUNT 215 10^3/uL (150-450); RED BLOOD COUNT 2.91 10^6/uL (3.72-5.28); RED CELL DISTRIBUTION WIDTH 16.6 % (11.5-14.0); SEGMENTED NEUTROPHILS % (AUTO) 80.1 % (42-78); TOTAL CELLS COUNTED % (AUTO) 100 %; WHITE BLOOD COUNT 10.1 10^3/uL (4.0-10.5)
[2018-12-30] MEDS ORDERED: ALBUTEROL SULFATE 0.083% NEB 2.5 MG/3 ML AMPUL NEB ONE (21:11)
[2018-12-30 21:22] LABS: ALANINE AMINOTRANSFERASE 24 U/L (9-52); ALBUMIN 3.6 g/dL (3.5-5.0); ALKALINE PHOSPHATASE 68 U/L (38-126); ANION GAP 9 (5-19); ASPARTATE AMINO TRANSFERASE 21 U/L (14-36); BILIRUBIN,DIRECT 0.3 mg/dL (0.0-0.4); BILIRUBIN,TOTAL 0.4 mg/dL (0.2-1.3); BLOOD UREA NITROGEN 25 mg/dL (7-20); CALCIUM 9.9 mg/dL (8.4-10.2); CARBON DIOXIDE 33 mmol/L (22-30); CHLORIDE 96 mmol/L (98-107); GLUCOSE 105 mg/dL (75-110); LIPASE 55.9 U/L (23-300); POTASSIUM 4.5 mmol/L (3.6-5.0); SODIUM 137.7 mmol/L (137-145)
[2018-12-30 21:34] LABS: TROPONIN I 0.02 ng/mL
[2018-12-30 22:47] LABS: ARTERIAL BLOOD BASE EXCESS 8.6 mmol/L; ARTERIAL BLOOD FIO2 3 FLOW RATE; ARTERIAL BLOOD H2CO3 1.75 mmol/L (1.05-1.35); ARTERIAL BLOOD HCO3 34.9 mmol/L (20-24); ARTERIAL BLOOD O2 SATURATION 97.7 % (94-98); ARTERIAL BLOOD PO2 105.1 mmHg (80-100); ARTERIAL BLOOD TOTAL CO2 36.7 mmol/L (21-25)
--- NOTE | 2018-12-30 23:33 | EKG REPORT ---
SEVERITY:- ABNORMAL ECG - SINUS TACHYCARDIA RIGHT BUNDLE BRANCH BLOCK : Confirmed by: Susan Mishra MD 30-Dec-2018 23:32:20
--- NOTE | 2018-12-31 00:38 | RADIOLOGY REPORT (SQ) ---
EXAM DESCRIPTION: RadLex: CT HEAD WITHOUT IV CONTRAST CLINICAL HISTORY: 73 years Female; fall, head trauma/neck pain TECHNIQUE: Noncontrast CT head. All CT scans at this facility use dose modulation, iterative reconstruction, and/or weight based dosing when appropriate to reduce radiation dose to as low as reasonably achievable. COMPARISON: 10/08/2018 CT FINDINGS: Confluent low-density changes in the cerebral white matter bilaterally are nonspecific, but typical for severe chronic small vessel disease. No acute hemorrhage or mass effect. No acute cortical edema. The degree of cerebral atrophy is similar to the prior exam. Paranasal sinuses are clear. There is a persistent right mastoid effusion. No obvious posterior nasopharyngeal lesion. No bony erosion. No acute calvarial fractures. IMPRESSION: 1. No acute intracranial findings. 2. Atrophy and severe chronic ischemic changes as on prior exam. 3. Persistent right mastoid effusion. This could potentially be due to a posterior nasopharyngeal mucosal lesion obstructing the eustachian tube.
--- NOTE | 2018-12-31 00:45 | RADIOLOGY REPORT (SQ) ---
EXAM DESCRIPTION: CT CERVICAL SPINE WITHOUT IV CONTRAST COMPLETED DATE/TME: 12/30/2018 23:11 CLINICAL HISTORY: 73 years Female, fall, head trauma/neck pain Comparison: None. Technique: No contrast. Coronal and sagittal reformat. This exam was performed according to our departmental dose-optimization program, which includes automated exposure control, adjustment of the mA and/or kV according to patient size and/or use of iterative reconstruction technique.[facility]: Dose Right [facility]: CareDose [facility]: Dose Right [facility]: Teradose 4D [facility]: MC2 LIMITATIONS: None Findings: Small disc desiccation and bulge between the C3 and C6 levels. Moderate reversed lordotic curvature. Normal alignment. No fracture. Normal vertebral heights. Retained fluid of bilateral mastoid air cells, right more than left partially imaged. Atherosclerotic vascular disease. Partially imaged nuchal soft tissues, inferior cranium, and upper thorax appear otherwise grossly intact. IMPRESSION: Moderate reversed lordotic curvature which may indicate soft tissue injury or spasm.
[2018-12-31] MEDS ORDERED: HYDROCODONE/ACETAMINOPHEN 5-325 MG (6 TAB/ER DISP) PO PRN (01:06)
--- NOTE | 2018-12-31 01:09 | ER Document Report ---
ED General - General Chief Complaint: Fall Injury Stated Complaint: FALL/HEAD PAIN, SKIN TEAR Time Seen by Provider: 12/30/18 17:35 Mode of Arrival: Wheelchair Cannot obtain history due to: Dementia Notes: Patient is a 73-year-old female with a history of dementia who presents after a fall out of her wheelchair. The patient apparently put a pillow case cover on the wheelchair causing her to slip and fall out of the wheelchair hitting her head and landing onto her left foot, chest wall, and as well as onto her low back and buttocks. The patient is a poor historian secondary to underlying dementia. She does state that all the affected areas as listed above are painful but is unwilling or unable to describe or characterize the pain. She did not apparently lose consciousness during this event. Has not had any nausea or vomiting. No focal weakness or numbness. Tetanus is already up-to-date. Has not seen her general physician regarding today's concerns. TRAVEL OUTSIDE OF THE [place] IN LAST 30 DAYS: No - Related Data Allergies/Adverse Reactions: azithromycin Allergy (Verified 12/30/18 17:18) cephalexin Allergy (Verified 12/30/18 17:18) Penicillins Allergy (Verified 12/30/18 17:18) amoxicillin [Amoxicillin] Adverse Reaction (Verified 12/30/18 17:18) visual hallucinations erythromycin base [Erythromycin Base] Adverse Reaction (Verified 12/30/18 17:18) visual hallucinations Potassium Clavulanate * [From Augmentin] Adverse Reaction (Verified 12/30/18 17:18) visual hallucinations Past Medical History - General Information source: Patient, Relative Cannot obtain history due to: Dementia - Social History Smoking Status: Former Smoker Chew tobacco use (# tins/day): No Frequency of alcohol use: None Drug Abuse: None Lives with: Family Family History: Reviewed & Not Pertinent, COPD, Malignancy - Lung cancer Patient has suicidal ideation: No Patient has homicidal ideation: No - Past Medical History Cardiac Medical History: Reports: Hx Atrial Fibrillation, Hx Congestive Heart Failure, Hx Coronary Artery Disease, Hx Heart Attack, Hx Hypertension Denies: Hx DVT, Hx Hypercholesterolemia, Hx Pulmonary Embolism Pulmonary Medical History: Reports: Hx Asthma, Hx Bronchitis, Hx COPD, Hx Pneumonia, Hx Respiratory Failure - Chronic respiratory failure Denies: Hx Sleep Apnea, Hx Tuberculosis Neurological Medical History: Denies: Hx Seizures Endocrine Medical History: Reports: Hx Diabetes Mellitus Type 2, Hx Hypothyroidism. 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 Denies: Hx Cirrhosis, Hx Hepatitis, Hx Ulcer Musculoskeletal Medical History: Reports Hx Arthritis, Reports Hx Gout, Denies Hx Multiple Sclerosis, Reports Hx Musculoskeletal Deformity, Reports Hx Musculoskeletal Trauma Skin Medical History: Denies Hx Eczema, Denies Hx Psoriasis Psychiatric Medical History: Reports: Hx Dementia, Hx Depression Denies: Hx Bipolar Disorder, Hx Schizophrenia Infectious Medical History: Reports: Hx C-Diff. Denies: Hx Hepatitis Past Surgical History: Reports: Hx Cholecystectomy, Hx Orthopedic Surgery - Foot surgery, Other - cataract bilateral - Immunizations Immunizations up to date: Yes Hx Diphtheria, Pertussis, Tetanus Vaccination: Yes Hx Pneumococcal Vaccination: 08/30/12 Review of Systems - Review of Systems Notes: Constitutional: Negative for fever. Eyes: Negative for visual changes. ENT: Negative for facial injury Cardiovascular: Negative for chest injury. Respiratory: Negative for shortness of breath. Gastrointestinal: Negative for abdominal injury. Genitourinary: Negative for genital injury Musculoskeletal: Positive for low back pain Skin: Positive for laceration/abrasions. Neurological: Positive for head injury. Physical Exam - Vital signs Vitals: Temp Pulse Resp BP Pulse Ox 98.3 F 124 H 24 H 110/67 93 12/30/18 17:25 12/30/18 17:25 12/30/18 17:25 12/30/18 17:25 12/30/18 17:25 Interpretation: Tachycardic Notes: PHYSICAL EXAMINATION: GENERAL: Elderly female lying in bed in no acute distress. HEAD: Atraumatic, normocephalic. EYES: Pupils equal round and reactive to light, extraocular movements intact, sclera anicteric, conjunctiva are normal. ENT: nares patent, no oral pharyngeal trauma. No hemotympanum, no Vazquez's sign, no raccoon eyes. NECK: No midline cervical spine tenderness. Patient able to move their head to 45 bilaterally without any discomfort. LUNGS: Breath sounds clear to auscultation bilaterally and equal. No wheezes rales or rhonchi. HEART: Regular rate and rhythm without murmurs. CHEST WALL: No ecchymosis over the chest wall. ABDOMEN: Soft, nontender, normoactive bowel sounds. No guarding, no rebound. No abdominal bruising EXTREMITIES: Normal range of motion, no pitting or edema. No long bone deformities. BACK: No midline spinal tenderness, step-offs, or deformities. Mild bruising over the sacrum NEUROLOGICAL: Face symmetric. Tongue protrudes midline. Extraocular motions intact. Pupils are 2 mm and equally reactive. Normal speech. 5 out of 5 strength in both the distal and proximal upper and lower extremities bilaterally. Sensation is grossly intact throughout. PSYCH: Alert, oriented to person and place SKIN: Warm, Dry, normal turgor, multiple skin tears on the left proximal upper extremity, skin tear to the right mid thigh Course - Re-evaluation Re-evalutation: 12/31/18 01:06 Presentation of a well appearing elderly patient in no acute distress, vitals within normal limits after a mechanical fall out of her wheelchair. Patient denies a syncopal episode as the cause for today's fall. No focal neurologic deficits on exam, no evidence of basilar skull fracture on exam without evidence of hemotympanum, raccoon eyes, or periauricular hematoma. No papilledema. Patient is not on anticoagulation. GCS is 15. No loss of consciousness. No episodes of vomiting. However, based on patient's age a CT of the head has been obtained which is negative for any acute intracranial bleed. Likewise, patient was unable to be clinically cleared due to age by [place] cervical spine criteria. A CT of the cervical spine was also obtained and likewise is negative for any acute fracture. No indication for further imaging of the cervical spine. Patient has no focal deformities or limited range of motion in any joint space. She does have some tenderness on palpation of the lumbar spine and sacral area, x-rays of these areas noted to be unremarkable. Chest and abdominal exam are benign without any focal tenderness, shortness of breath, or bruising over the chest or abdominal wall. Patient has no flank tenderness. Patient does have some skin avulsions to the posterior left arm at the level of the bicep as well as into the right proximal thigh. At this time will discharge with return p recautions and follow-up recommendations. Verbal discharge instructions given a the bedside and opportunity for questions given. Medication warnings reviewed. Patient is in agreement with this plan and has verbalized understanding of return precautions and the need for primary care follow-up in the next 24-72 hours. - Vital Signs Vital signs: Temp Pulse Resp BP Pulse Ox 98.1 F 124 H 24 H 110/64 100 12/31/18 02:00 12/30/18 17:25 12/31/18 01:56 12/31/18 01:57 12/31/18 01:56 - Laboratory Result Diagrams: 12/30/18 20:53 12/30/18 20:53 Laboratory results interpreted by me: 12/30/18 12/30/18 12/30/18 20:53 20:53 20:53 RBC 2.91 L Hgb 9.9 L Hct 28.8 L MCV 99 H MCH 33.9 H RDW 16.6 H Seg Neutrophils % 80.1 H Lymphocytes % 9.4 L Carbonic Acid ABG pCO2 ABG pO2 ABG HCO3 ABG Total CO2 Chloride 96 L Carbon Dioxide 33 H BUN 25 H Est GFR ( Amer) 53 L Est GFR (Non-Af Amer) 44 L NT-Pro-B Natriuret Pep 828 H Total Protein 6.0 L 12/30/18 22:05 RBC Hgb Hct MCV MCH RDW Seg Neutrophils % Lymphocytes % Carbonic Acid 1.75 H ABG pCO2 58.0 H ABG pO2 105.1 H ABG HCO3 34.9 H ABG Total CO2 36.7 H Chloride Carbon Dioxide BUN Est GFR ( Amer) Est GFR (Non-Af Amer) NT-Pro-B Natriuret Pep Total Protein - Diagnostic Test Radiology reviewed: Image reviewed, Reports reviewed Radiology results interpreted by me: 12/31/18 04:17 CT head: No acute intracranial bleed or mass Chest x-ray: No evidence of rib fractures or pulmonary contusion - EKG Interpretation by Me Additional EKG results interpreted by me: 12/31/18 01:07 Sinus tachycardia, rate 115, no ST elevations or depressions. Right bundle branch block present. QTC 487. Discharge - Discharge Clinical Impression: Skin tear Fall Qualifiers: Encounter type: initial encounter Qualified Code(s): W19.XXXA - Unspecified fall, initial encounter Head trauma Qualifiers: Encounter type: initial encounter Qualified Code(s): S09.90XA - Unspecified injury of head, initial encounter Low back pain Qualifiers: Chronicity: acute Back pain laterality: bilateral Sciatica presence: without sciatica Qualified Code(s): M54.5 - Low back pain Dementia Qualifiers: Dementia type: unspecified type Dementia behavioral disturbance: without behavioral disturbance Qualified Code(s): F03.90 - Unspecified dementia without behavioral disturbance Condition: Stable Disposition: HOME, SELF-CARE Additional Instructions: You have been seen in the Emergency Department (ED) today following a fall. Your workup today did not reveal any injuries that require you to stay in the hospital. You can expect, though, to be stiff and sore for the next several days. You can take the [place] with which you were sent home every 6 hours as needed for pain. You can apply a hot pack or electric heating pad to the sore areas. You can also use topical "Aspercreme with lidocaine" to sore areas as needed. Please follow up with your primary care doctor as soon as possible regarding today's ED visit and your recent fall. Call your doctor or return to the ED if you develop a sudden or severe headache, confusion, slurred speech, facial droop, weakness or numbness in any arm or leg, extreme fatigue, vomiting more than two times, severe abdominal pain, or other symptoms that concern you.
[2018-12-31 02:43] VITALS: BP 110/64
== END 2018-12-31 02:20 | disposition home or self-care (01) ==
LOC: ER 17:17
DX: S09.90XA Unspecified injury of head, initial encounter (principal); S41.112A Laceration without foreign body of left upper arm, initial encounter; S71.111A Laceration without foreign body, right thigh, initial encounter; M54.2 Cervicalgia; R07.9 Chest pain, unspecified; R06.02 Shortness of breath; R00.0 Tachycardia, unspecified; M54.5 Low back pain; F03.90 Unspecified dementia, unspecified severity, without behavioral disturbance, psychotic disturbance, mood disturbance, and anxiety; W05.0XXA Fall from non-moving wheelchair, initial encounter; Y92.009 Unspecified place in unspecified non-institutional (private) residence as the place of occurrence of the external cause; I48.91 Unspecified atrial fibrillation; I50.9 Heart failure, unspecified; I25.10 Atherosclerotic heart disease of native coronary artery without angina pectoris; J44.9 Chronic obstructive pulmonary disease, unspecified; I11.0 Hypertensive heart disease with heart failure; I25.2 Old myocardial infarction; Z88.0 Allergy status to penicillin; Z88.3 Allergy status to other anti-infective agents
CPT/HCPCS: 93005; 94640 ×2; 99285; 36415; 82803; 83690; 85025; 80053; 84484; 83880; 71046; 72220; 73630; 72110; 72070; 70450; 72125; 93010; A9270 ×6; J7512; J7620

== ENCOUNTER 2019-01-07 17:29 | Emergency (ER) | payer MEDICARE, OTHER ==
[2019-01-07 18:03] LABS: ABSOLUTE EOSINOPHILS # (AUTO) 0.3 10^3/uL (0.0-0.6); ABSOLUTE LYMPHOCYTES (AUTO) 0.8 10^3/uL (0.5-4.7); ABSOLUTE MONOCYTES (AUTO) 0.6 10^3/uL (0.1-1.4); ABSOLUTE NEUT (AUTO) 4.5 10^3/uL (1.7-8.2); BASOPHILS % (AUTO) 0.3 % (0-2); EOSINOPHILS % (AUTO) 5.2 % (0-6); HEMATOCRIT 25.3 % (36.0-47.0); HEMOGLOBIN 8.5 g/dL (12.0-15.5); LYMPHOCYTES % (AUTO) 12.9 % (13-45); MEAN CORPUSCULAR HEMOGLOBIN 32.8 pg (27.0-33.4); MEAN CORPUSCULAR HGB CONC 33.6 g/dL (32.0-36.0); MEAN CORPUSCULAR VOLUME 98 fl (80-97); PLATELET COUNT 290 10^3/uL (150-450); RED BLOOD COUNT 2.59 10^6/uL (3.72-5.28); RED CELL DISTRIBUTION WIDTH 15.7 % (11.5-14.0); SEGMENTED NEUTROPHILS % (AUTO) 72.6 % (42-78); TOTAL CELLS COUNTED % (AUTO) 100 %; WHITE BLOOD COUNT 6.2 10^3/uL (4.0-10.5)
[2019-01-07] MEDS ORDERED: METHYLPREDNISOLONE INJ 125 MG/2 ML SDV IV ONE (18:18)
[2019-01-07] MEDS ORDERED: IPRATROPIUM/ALBUTEROL 0.5-2.5 MG/3 ML AMPUL NEB ONE (18:18)
--- NOTE | 2019-01-07 18:21 | RADIOLOGY REPORT (SQ) ---
EXAM DESCRIPTION: CHEST SINGLE VIEW COMPLETED DATE/TIME: 01/07/2019 6:05 pm REASON FOR STUDY: bed 1 db COMPARISON: 12/30/2018 TECHNIQUE: Single frontal radiographic view of the chest acquired. NUMBER OF VIEWS: One view. LIMITATIONS: None. FINDINGS: LUNGS AND PLEURA: No pneumothorax. No acute consolidation or pleural effusion. MEDIASTINUM AND HILAR STRUCTURES: Similar right hilar fullness. HEART AND VASCULAR STRUCTURES: Stable. BONES: No acute findings. HARDWARE: None in the chest. OTHER: No other significant finding. IMPRESSION: Similar right hilar fullness and volume loss. No acute consolidation or pleural effusion . TECHNICAL DOCUMENTATION: JOB ID: [id number] [place]-72 2010 [employer]- All Rights Reserved Reading location - IP/workstation name: [employer]
[2019-01-07 18:22] LABS: ALANINE AMINOTRANSFERASE 18 U/L (9-52); ALBUMIN 3.2 g/dL (3.5-5.0); ALKALINE PHOSPHATASE 66 U/L (38-126); ANION GAP 8 (5-19); ASPARTATE AMINO TRANSFERASE 14 U/L (14-36); BILIRUBIN,DIRECT 0.2 mg/dL (0.0-0.4); BILIRUBIN,TOTAL 0.2 mg/dL (0.2-1.3); BLOOD UREA NITROGEN 14 mg/dL (7-20); CALCIUM 8.8 mg/dL (8.4-10.2); CARBON DIOXIDE 34 mmol/L (22-30); CHLORIDE 101 mmol/L (98-107); CREATINE KINASE 23 U/L (30-135); GLUCOSE 139 mg/dL (75-110); POTASSIUM 4.5 mmol/L (3.6-5.0); SODIUM 142.6 mmol/L (137-145); TOTAL PROTEIN 5.6 g/dL (6.3-8.2)
[2019-01-07 18:33] LABS: CREATINE KINASE MB 1.01 ng/mL (<4.55)
[2019-01-07 18:34] LABS: TROPONIN I < 0.012 ng/mL
[2019-01-07] MEDS ORDERED: MAGNESIUM SULFATE/D5W 1 GM/100 ML RTUPB IV ONE (19:28)
[2019-01-07] MEDS ORDERED: METHYLPREDNISOLONE INJ 125 MG/2 ML SDV IM ONE (21:03)
[2019-01-07] MEDS ORDERED: LEVOFLOXACIN 750 MG TABLET PO ONE (21:04)
--- NOTE | 2019-01-07 21:24 | ER Document Report ---
ED General - General Chief Complaint: Breathing Difficulty Stated Complaint: DIFFICULTY BREATHING Time Seen by Provider: 01/07/19 18:10 TRAVEL OUTSIDE OF THE [place] IN LAST 30 DAYS: No - HPI Notes: Patient is a 73-year-old female with a known history of COPD who presents to the emergency department for evaluation of shortness of breath. She states she is always short of breath, states is been worse over the last 3 days. She is on oxygen at 2 L per nasal cannula regularly. She states she has been coughing, but states she always has a cough. It is always productive. She denies any specific chest pain, states simply that she "hurts all over." She evidently fell out of her wheelchair about a week ago, was seen here in the emergency department. No obvious fractures were found, but she did sustain multiple bruises. She states she believes that what her pain is primarily from. She states she been taking her medications as prescribed. She was given a breathing treatment in route, stated that she did have some relief with that. - Related Data Allergies/Adverse Reactions: azithromycin Allergy (Verified 12/30/18 17:18) cephalexin Allergy (Verified 12/30/18 17:18) Penicillins Allergy (Verified 12/30/18 17:18) amoxicillin [Amoxicillin] Adverse Reaction (Verified 12/30/18 17:18) visual hallucinations erythromycin base [Erythromycin Base] Adverse Reaction (Verified 12/30/18 17:18) visual hallucinations Potassium Clavulanate * [From Augmentin] Adverse Reaction (Verified 12/30/18 17:18) visual hallucinations Past Medical History - General Information source: Patient, Emergency Med Personnel - Social History Smoking Status: Former Smoker Chew tobacco use (# tins/day): No Frequency of alcohol use: None Drug Abuse: None Family History: Reviewed & Not Pertinent, COPD, Malignancy - Lung cancer Patient has suicidal ideation: No Patient has homicidal ideation: No - Past Medical History Cardiac Medical History: Reports: Hx Atrial Fibrillation, Hx Congestive Heart Failure, Hx Coronary Artery Disease, Hx Heart Attack, Hx Hypertension Denies: Hx DVT, Hx Hypercholesterolemia, Hx Pulmonary Embolism Pulmonary Medical History: Reports: Hx Asthma, Hx Bronchitis, Hx COPD, Hx Pneumonia, Hx Respiratory Failure - Chronic respiratory failure Denies: Hx Sleep Apnea, Hx Tuberculosis Neurological Medical History: Denies: Hx Seizures Endocrine Medical History: Reports: Hx Diabetes Mellitus Type 2, Hx Hypothyroidism. 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 Denies: Hx Cirrhosis, Hx Hepatitis, Hx Ulcer Musculoskeletal Medical History: Reports Hx Arthritis, Reports Hx Gout, Denies Hx Multiple Sclerosis, Reports Hx Musculoskeletal Deformity, Reports Hx Musculoskeletal Trauma Skin Medical History: Denies Hx Eczema, Denies Hx Psoriasis Psychiatric Medical History: Reports: Hx Dementia, Hx Depression Denies: Hx Bipolar Disorder, Hx Schizophrenia Infectious Medical History: Reports: Hx C-Diff. Denies: Hx Hepatitis Past Surgical History: Reports: Hx Cholecystectomy, Hx Orthopedic Surgery - Foot surgery, Other - cataract bilateral - Immunizations Immunizations up to date: Yes Hx Diphtheria, Pertussis, Tetanus Vaccination: Yes Hx Pneumococcal Vaccination: 08/30/12 Review of Systems - Review of Systems Constitutional: No symptoms reported EENT: No symptoms reported Physical Exam - Vital signs Vitals: Pulse Ox 99 01/07/19 17:32 - Notes Notes: Vital signs reviewed, please refer to chart. Head is normocephalic, atraumatic. Pupils equal round, reactive to light. Neck is supple without meningismus. Heart is regular rate and rhythm. Lungs reveal expiratory wheezes throughout with prolonged expiratory phase. Abdomen is soft, nontender, normoactive bowel sounds throughout. Extremities without cyanosis, clubbing. Posterior calves are nontender. Peripheral pulses are equal. Skin is warm and dry. She does have ecchymosis in multiple stages of healing all of her upper and lower extremities. Patient is awake, alert, neurological exam is nonfocal. Course - Re-evaluation Re-evalutation: 01/07/19 21:26 Patient presents emergency department for evaluation of shortness of breath. She is given a breathing treatment in route. She was further given a breathing treatment here. We did order laboratory investigations, Solu-Medrol. Initially the patient stated she was not feeling better. We did have some difficulty obtaining an IV. She refused to let EMS attempt, and became frustrated when a single attempt here was unsuccessful. Eventually the patient stated she wanted to just go home. She stated she was feeling better. She is mildly tachycardic, but this is likely as a result of the albuterol. She seems to always be tachycardic while here in the emergency department. Again she denies any chest pain, has no dizziness. She was administered her Solu-Medrol 125 mill grams IM here. She is given Levaquin to treat for an acute exacerbation of COPD. This antibiotic was chosen given her multiple antibiotic allergies. She is anxious to be discharged. She is told to return if at any point her breathing worsens, or if she wants to continue treatment here in the hospital.. She voiced understanding. 01/07/19 21:32 - Vital Signs Vital signs: Temp Pulse Resp BP Pulse Ox 98.1 F 123 H 31 H 128/74 H 93 01/07/19 17:33 01/07/19 17:33 01/07/19 21:00 01/07/19 20:01 01/07/19 21:00 - Laboratory Result Diagrams: 01/07/19 17:50 01/07/19 17:50 Laboratory results interpreted by me: 01/07/19 01/07/19 01/07/19 17:50 17:50 17:50 RBC 2.59 L Hgb 8.5 L Hct 25.3 L MCV 98 H RDW 15.7 H Lymphocytes % 12.9 L Carbon Dioxide 34 H Est GFR ( Amer) 56 L Est GFR (Non-Af Amer) 46 L Glucose 139 H Creatine Kinase 23 L NT-Pro-B Natriuret Pep 588 H Total Protein 5.6 L Albumin 3.2 L - Diagnostic Test Radiology reviewed: Reports reviewed Radiology results interpreted by me: 01/07/19 21:33 Chest X-Ray 01/07/19 17:32 IMPRESSION: Similar right hilar fullness and volume loss. No acute consolidation or pleural effusion. Discharge - Discharge Clinical Impression: COPD exacerbation Condition: Stable Disposition: HOME, SELF-CARE Instructions: Chronic Obstructive Lung Disease ([facility]) Additional Instructions: Take all of the steroids and antibiotics as prescribed. Follow-up with your primary care physician this week. If you develop worsening or new concerning symptoms of any sort, return to the ER for reevaluation.
[2019-01-07 23:05] VITALS: BP 108/68
== END 2019-01-07 23:05 | disposition home or self-care (01) ==
LOC: ER 17:29
DX: J44.1 Chronic obstructive pulmonary disease with (acute) exacerbation (principal); R06.02 Shortness of breath; W05.0XXA Fall from non-moving wheelchair, initial encounter; Z87.891 Personal history of nicotine dependence; J44.9 Chronic obstructive pulmonary disease, unspecified; I25.10 Atherosclerotic heart disease of native coronary artery without angina pectoris; I50.9 Heart failure, unspecified; E11.9 Type 2 diabetes mellitus without complications
CPT/HCPCS: 94640; 99285; 96372; 36415; 82553; 82550; 85025; 80053; 84484; 83880; 71045; J2930; A9270 ×2; J7620

== ENCOUNTER 2019-01-25 13:15 | Inpatient (IN) | payer MEDICARE ==
[2019-01-25 15:29] LABS: HEMATOCRIT 28.3 % (36.0-47.0); HEMOGLOBIN 9.4 g/dL (12.0-15.5); MEAN CORPUSCULAR HGB CONC 33.2 g/dL (32.0-36.0); MEAN CORPUSCULAR VOLUME 100 fl (80-97); PLATELET COUNT 212 10^3/uL (150-450); RED BLOOD COUNT 2.84 10^6/uL (3.72-5.28); RED CELL DISTRIBUTION WIDTH 15.6 % (11.5-14.0); WHITE BLOOD COUNT 12.8 10^3/uL (4.0-10.5)
[2019-01-25 15:46] LABS: ALANINE AMINOTRANSFERASE 17 U/L (9-52); ALBUMIN 3.4 g/dL (3.5-5.0); ALKALINE PHOSPHATASE 70 U/L (38-126); ANION GAP 6 (5-19); ASPARTATE AMINO TRANSFERASE 18 U/L (14-36); BILIRUBIN,DIRECT 0.2 mg/dL (0.0-0.4); BILIRUBIN,TOTAL 0.2 mg/dL (0.2-1.3); BLOOD UREA NITROGEN 23 mg/dL (7-20); CALCIUM 9.4 mg/dL (8.4-10.2); CARBON DIOXIDE 37 mmol/L (22-30); CHLORIDE 97 mmol/L (98-107); CREATINE KINASE 21 U/L (30-135); GLUCOSE 226 mg/dL (75-110); POTASSIUM 4.2 mmol/L (3.6-5.0); SODIUM 139.7 mmol/L (137-145); TOTAL PROTEIN 5.5 g/dL (6.3-8.2)
[2019-01-25 15:48] LABS: ABSOLUTE LYMPHOCYTES# (MANUAL) 0.4 10^3/uL (0.5-4.7); ABSOLUTE MONOCYTES # (MANUAL) 0.4 10^3/uL (0.1-1.4); BAND NEUTROPHILS % (MANUAL) 4 % (3-5); BASOPHILS % (MANUAL) 0 % (0-2); EOSINOPHILS % (MANUAL) 0 % (0-6); LYMPHOCYTES % (MANUAL) 3 % (13-45); METAMYELOCYTES % (MANUAL) 1 % (0); MONOCYTES % (MANUAL) 3 % (3-13); PLATELET COMMENT ADEQUATE; SEGMENTED NEUTROPHILS % (MAN) 89 % (42-78); TOTAL CELLS COUNTED 100
[2019-01-25 15:49] LABS: HYPOCHROMASIA 1+; POLYCHROMASIA SLIGHT
[2019-01-25 15:50] LABS: ANISOCYTOSIS 2+; TEAR DROP CELLS SLIGHT
[2019-01-25] MEDS ORDERED: ALBUTEROL SULFATE 0.083% NEB 2.5 MG/3 ML AMPUL NEB ONE (15:51)
[2019-01-25] MEDS ORDERED: IPRATROPIUM/ALBUTEROL 0.5-2.5 MG/3 ML AMPUL NEB ONE (15:51)
[2019-01-25 15:58] LABS: CREATINE KINASE MB 0.74 ng/mL (<4.55); TROPONIN I 0.014 ng/mL
[2019-01-25] MEDS ORDERED: NORMAL SALINE 1000 ML 1,500 ML IV ONE (16:12)
[2019-01-25] MEDS ORDERED: LEVOFLOXACIN 750 MG/D5W RTU 750 MG/150 ML RTUPB IV ONE (16:13)
--- NOTE | 2019-01-25 16:19 | RADIOLOGY REPORT (SQ) ---
EXAM DESCRIPTION: CHEST SINGLE VIEW COMPLETED DATE/TIME: 01/25/2019 4:07 pm REASON FOR STUDY: short of breath COMPARISON: 01/12/2019 and 12/06/2012. EXAM PARAMETERS: NUMBER OF VIEWS: One view. TECHNIQUE: Single frontal radiographic view of the chest acquired. RADIATION DOSE: NA LIMITATIONS: None. FINDINGS: LUNGS AND PLEURA: No opacities, masses or pneumothorax. No pleural effusion. MEDIASTINUM AND HILAR STRUCTURES: Stable chronic scarring in the right hilum. HEART AND VASCULAR STRUCTURES: Heart normal in size. Normal vasculature. BONES: No acute findings. HARDWARE: None in the chest. OTHER: No other significant finding. IMPRESSION: STABLE CHRONIC SCARRING IN THE RIGHT HILUM. NO ACUTE RADIOGRAPHIC FINDING IN THE CHEST. TECHNICAL DOCUMENTATION: JOB ID: [id number] [employer]- All Rights Reserved Reading location - IP/workstation name: [email or web address]
--- NOTE | 2019-01-25 16:22 | ER Document Report ---
ED General - General Chief Complaint: Shortness Of Breath Stated Complaint: WEAKNESS Time Seen by Provider: 01/25/19 15:49 Primary Care Provider: ELAN ZIMMERMAN DO [Primary Care Provider] - Follow up as needed TRAVEL OUTSIDE OF THE [place] IN LAST 30 DAYS: No - HPI Notes: Patient is a 73-year-old female that presents to the emergency department for chief complaint of shortness of breath and cough. Patient states she has had increased shortness of breath and coughing over the last week. She saw her primary care provider yesterday who started her on Levaquin and prednisone. She states she did take both of those medications yesterday and this morning. She reports using her albuterol inhaler with no relief. She is on 2 L nasal cannula oxygen at home at all time for chronic COPD. She does report increased sputum production. Patient states despite medication at home she is feeling worse Past Medical History: COPD, CHF Past Surgical History: Reviewed in chart Social History: Reviewed in chart Family History: Reviewed and noncontributory for presenting illness Allergies: Reviewed, see documented allergy list. REVIEW OF SYSTEMS: CONSTITUTIONAL : No fever No chills No diaphoresis No recent illness EENT: No vision changes congestion No sore throat CARDIOVASCULAR: No chest pain No palpitations RESPIRATORY: shortness of breath cough difficulty breathing GASTROINTESTINAL: No abdominal pain No nausea No vomiting No diarrhea GENITOURINARY: No dysuria No hematuria No difficulty urinating MUSCULOSKELETAL: No back pain No leg pain No arm pain SKIN: No rashes No lesions LYMPHATIC: No swollen, enlarged glands. NEUROLOGICAL: No lightheadedness No headache No weakness No paresthesias PSYCHIATRIC: No anxiety No depression PHYSICAL EXAMINATION: Vital signs reviewed, nursing noted reviewed. GENERAL: Somnolent, obese, and in no acute distress. HEAD: Atraumatic, normocephalic. EYES: Eyes appear normal, extraocular movements intact, sclera anicteric, conjunctiva are normal. ENT: nares patent, oropharynx clear without exudates. Dry mucous membranes. NECK: Normal range of motion, supple without lymphadenopathy LUNGS: Breath sounds wheezing to auscultation bilaterally. Tachypneic with no accessory muscle use. HEART: Tachycardic rate and regular rhythm without murmurs ABDOMEN: Soft, nontender, normoactive bowel sounds. No rebound, guarding, or rigidity. No masses appreciated. EXTREMITIES: Nontender, good range of motion, trace pretibial edema NEUROLOGICAL: No focal neurological deficits. Moves all extremities spontaneously Motor and sensory grossly intact on exam. PSYCH: Normal mood, normal affect. SKIN: Warm, Dry, normal turgor, no rashes or lesions noted on exposed skin - Related Data Allergies/Adverse Reactions: azithromycin Allergy (Verified 12/30/18 17:18) cephalexin Allergy (Verified 12/30/18 17:18) Penicillins Allergy (Verified 12/30/18 17:18) amoxicillin [Amoxicillin] Adverse Reaction (Verified 12/30/18 17:18) visual hallucinations erythromycin base [Erythromycin Base] Adverse Reaction (Verified 12/30/18 17:18) visual hallucinations Potassium Clavulanate * [From Augmentin] Adverse Reaction (Verified 12/30/18 17 :18) visual hallucinations Past Medical History - Social History Smoking Status: Unknown if Ever Smoked Family History: Reviewed & Not Pertinent, COPD, Malignancy - Lung cancer Patient has suicidal ideation: No Patient has homicidal ideation: No - Past Medical History Cardiac Medical History: Reports: Hx Atrial Fibrillation, Hx Congestive Heart Failure, Hx Coronary Artery Disease, Hx Heart Attack, Hx Hypertension Denies: Hx DVT, Hx Hypercholesterolemia, Hx Pulmonary Embolism Pulmonary Medical History: Reports: Hx Asthma, Hx Bronchitis, Hx COPD, Hx Pneumonia, Hx Respiratory Failure - Chronic respiratory failure Denies: Hx Sleep Apnea, Hx Tuberculosis Neurological Medical History: Denies: Hx Seizures Endocrine Medical History: Reports: Hx Diabetes Mellitus Type 2, Hx Hypothyroidism. 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 Denies: Hx Cir rhosis, Hx Hepatitis, Hx Ulcer Musculoskeletal Medical History: Reports Hx Arthritis, Reports Hx Gout, Denies Hx Multiple Sclerosis, Reports Hx Musculoskeletal Deformity, Reports Hx Musculoskeletal Trauma Skin Medical History: Denies Hx Eczema, Denies Hx Psoriasis Psychiatric Medical History: Reports: Hx Dementia, Hx Depression Denies: Hx Bipolar Disorder, Hx Schizophrenia Infectious Medical History: Reports: Hx C-Diff. Denies: Hx Hepatitis Past Surgical History: Reports: Hx Cholecystectomy, Hx Orthopedic Surgery - Foot surgery, Other - cataract bilateral - Immunizations Immunizations up to date: Yes Hx Diphtheria, Pertussis, Tetanus Vaccination: Yes Hx Pneumococcal Vaccination: 08/30/12 Physical Exam - Vital signs Vitals: Resp Pulse Ox 18 99 01/25/19 14:36 01/25/19 14:36 Course - Re-evaluation Re-evalutation: 01/25/19 16:24 Vitals reviewed. Nursing notes reviewed. Patient is tachycardic and tachypneic at presentation. She is oxygenating on her home 2 L nasal cannula oxygen. Chest x-ray shows chronic scarring with no acute visualized pneumonia. Patient symptoms of cough with increased sputum production are concerning for possible underlying pneumonia that is not being picked up on chest x-ray. She does have a new leukocytosis as well as elevated lactic acid at 2.5. Patient is meeting sepsis criteria. She was given a dose of IV Levaquin. She has already taken prednisone 40 mg at home today. Patient was given albuterol and DuoNeb in the emergency room. She was started on IV fluids. She will be admitted to the hospital for close monitoring of her respiratory status and failed outpatient management. Her care was discussed with Dr. Waldron Laboratory 01/25/19 01/25/19 01/25/19 14:50 15:10 15:10 WBC 12.8 H RBC 2.84 L Hgb 9.4 L Hct 28.3 L MCV 100 H MCH 33.0 MCHC 33.2 RDW 15.6 H Plt Count 212 Total Counted 100 Seg Neutrophils % Not Reportable Seg Neuts % (Manual) 89 H Band Neutrophils % 4 Lymphocytes % Not Reportable Lymphocytes % (Manual) 3 L Monocytes % Not Reportable Monocytes % (Manual) 3 Eosinophils % Not Reportable Eosinophils % (Manual) 0 Basophils % Not Reportable Basophils % (Manual) 0 Metamyelocytes % 1 H Absolute Neutrophils Not Reportable Abs Neuts (Manual) 12.0 H Absolute Lymphocytes Not Reportable Abs Lymphs (Manual) 0.4 L Absolute Monocytes Not Reportable Abs Monocytes (Manual) 0.4 Absolute Eosinophils Not Reportable Absolute Eos (Manual) 0.0 Absolute Basophils Not Reportable Abs Basophils (Manual) 0.0 Platelet Comment ADEQUATE Polychromasia SLIGHT Hypochromasia 1+ Anisocytosis 2+ Tear Drop Cells SLIGHT Sodium 139.7 Potassium 4.2 Chloride 97 L Carbon Dioxide 37 H Anion Gap 6 BUN 23 H Creatinine 0.93 Est GFR ( Amer) > 60 Est GFR (Non-Af Amer) 59 L Glucose 226 H Lactic Acid 2.5 H Calcium 9.4 Total Bilirubin 0.2 Direct Bilirubin 0.2 Neonat Total Bilirubin Not Reportable Neonat Direct Bilirubin Not Reportable Neonat Indirect Bili Not Reportable AST 18 ALT 17 Alkaline Phosphatase 70 Creatine Kinase 21 L CK-MB (CK-2) Troponin I Total Protein 5.5 L Albumin 3.4 L 01/25/19 15:10 WBC RBC Hgb Hct MCV MCH MCHC RDW Plt Count Total Counted Seg Neutrophils % Seg Neuts % (Manual) Band Neutrophils % Lymphocytes % Lymphocytes % (Manual) Monocytes % Monocytes % (Manual) Eosinophils % Eosinophils % (Manual) Basophils % Basophils % (Manual) Metamyelocytes % Absolute Neutrophils Abs Neuts (Manual) Absolute Lymphocytes Abs Lymphs (Manual) Absolute Monocytes Abs Monocytes (Manual) Absolute Eosinophils Absolute Eos (Manual) Absolute Basophils Abs Basophils (Manual) Platelet Comment Polychromasia Hypochromasia Anisocytosis Tear Drop Cells Sodium Potassium Chloride Carbon Dioxide Anion Gap BUN Creatinine Est GFR ( Amer) Est GFR (Non-Af Amer) Glucose Lactic Acid Calcium Total Bilirubin Direct Bilirubin Neonat Total Bilirubin Neonat Direct Bilirubin Neonat Indirect Bili AST ALT Alkaline Phosphatase Creatine Kinase CK-MB (CK-2) 0.74 Troponin I 0.014 Total Protein Albumin Chest X-Ray 01/25/19 15:49 IMPRESSION: STABLE CHRONIC SCARRING IN THE RIGHT HILUM. NO ACUTE RADIOGRAPHIC FINDING IN THE CHEST. who has accepted admission. - Vital Signs Vital signs: Temp Pulse Resp BP Pulse Ox 98 F 19 126/75 H 100 01/25/19 14:49 01/25/19 15:30 01/25/19 15:30 01/25/19 15:30 - Laboratory Result Diagrams: 01/25/19 15:10 01/25/19 15:10 Laboratory results interpreted by me: 01/25/19 01/25/19 01/25/19 14:50 15:10 15:10 WBC 12.8 H RBC 2.84 L Hgb 9.4 L Hct 28.3 L MCV 100 H RDW 15.6 H Seg Neuts % (Manual) 89 H Lymphocytes % (Manual) 3 L Metamyelocytes % 1 H Abs Neuts (Manual) 12.0 H Abs Lymphs (Manual) 0.4 L Chloride 97 L Carbon Dioxide 37 H BUN 23 H Est GFR (Non-Af Amer) 59 L Glucose 226 H Lactic Acid 2.5 H Creatine Kinase 21 L Total Protein 5.5 L Albumin 3.4 L - EKG Interpretation by Me Additional EKG results interpreted by me: 01/25/19 16:21 Interpreted by myself [id number]: Sinus tachycardia, rate 106, normal axis, right bundle branch block, no ectopy, no STEMI, no significant change from 01/12/2019 Discharge - Discharge Clinical Impression: COPD with exacerbation Sepsis Qualifiers: Sepsis type: sepsis due to unspecified organism Qualified Code(s): A41.9 - Sepsis, unspecified organism Community acquired pneumonia Qualifiers: Laterality: unspecified laterality Qualified Code(s): J18.9 - Pneumonia, unspecified organism Condition: Stable Disposition: ADMITTED INPATIENT Admitting Provider: Vanita (Hospitalist) Unit Admitted: Telemetry Referrals: ELAN ZIMMERMAN DO [Primary Care Provider] - Follow up as needed
[2019-01-25 17:00] LABS: ARTERIAL BLOOD BASE EXCESS 10.3 mmol/L; ARTERIAL BLOOD H2CO3 1.87 mmol/L (1.05-1.35); ARTERIAL BLOOD HCO3 36.9 mmol/L (20-24); ARTERIAL BLOOD O2 SATURATION 97.8 % (94-98); ARTERIAL BLOOD PCO2 62.1 mmHg (35-45); ARTERIAL BLOOD PH 7.39 (7.35-7.45); ARTERIAL BLOOD PO2 108.4 mmHg (80-100); ARTERIAL BLOOD TOTAL CO2 38.8 mmol/L (21-25)
[2019-01-25 17:02] LABS: ARTERIAL BLOOD FIO2 ROOM AIR
[2019-01-25] MEDS ORDERED: ONDANSETRON HCL INJ/PF 4 MG/2 ML SDV IV PRN (17:24)
[2019-01-25] MEDS ORDERED: PROMETHAZINE HCL INJ 25 MG/1 ML VIAL IV PRN (17:24)
[2019-01-25] MEDS ORDERED: ACETAMINOPHEN 325 MG TABLET PO PRN (17:24)
[2019-01-25] MEDS ORDERED: MAG HYDROX/AL HYDROX/SIMETH SUSP 30 ML UDCUP PO PRN (17:24)
[2019-01-25] MEDS ORDERED: MAGNESIUM HYDROXIDE SUSP 30 ML UDCUP PO PRN (17:24)
--- NOTE | 2019-01-25 17:24 | PDOC H&P ---
History of Present Illness Admission Date/PCP: 01/25/19 16:31 ELAN ZIMMERMAN DO History of Present Illness: TRENTON MCCOY is a 73 year old female past medical history of metastatic lung cancer, CHF, CAD, hypertension, hyperlipidemia, COPD on home O2, hypothyroidism, recurrent UTIs. Last hospitalization 11/29/2018 to 12/18/2018. Was admitted for MARY LOU, COPD exacerbation, UTI, CAD, hypertension. Patient presenting to ED complaining of shortness of breath, nonproductive cough, generalized body aches, Yesterday she went to her PCP was started on prednisone and Levaquin. She has been using her meds along with albuterol inhaler with no significant improvement in her symptoms. Decided to come to ED. Denies any chest pain, fever, nausea, vomiting, diarrhea, constipation, or any u rinary symptoms. In the ED she was found to have leukocytosis, hypoxemia, and lactic acidosis. Hospitalist was consulted for admission. Past Medical History Cardiac Medical History: Reports: Atrial Fibrillation, Congestive Heart Failure, Coronary Artery Disease, Myocardial Infarction, Hypertension Denies: DVT, Hyperlipidema, Pulmonary Embolism Pulmonary Medical History: Reports: Asthma, Bronchitis, Chronic Obstructive Pulmonary Disease (COPD), Pneumonia, Respiratory Failure - Chronic respiratory failure Denies: Sleep Apnea, Tuberculosis Neurological Medical History: Denies: Seizures Endocrine Medical History: Reports: Diabetes Mellitus Type 2, Hypothyroidism Denies: Diabetes Mellitus Type 1, Hyperthyroidism Renal/ Medical History: Denies: End Stage Renal Disease Malignancy Medical History: Reports: Brain Cancer - Lung cancer with brain metastases, 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 GI Medical History: Reports: Gastroesophageal Reflux Disease Denies: Cirrhosis, Hepatitis Musculoskeltal Medical History: Reports: Arthritis, Gout Skin Medical History: Denies: Eczema, Psoriasis Psychiatric Medical History: Reports: Dementia, Depression Denies: Bipolar Disorder Hematology: Reports: Anemia, Bleeding Tendencies Infectious Medical History: Reports: Clostridium Difficile Past Surgical History Past Surgical History: Reports: Cholecystectomy, Orthopedic Surgery - Foot surgery, Other - cataract bilateral Social History Smoking Status: Unknown if Ever Smoked Frequency of Alcohol Use: None Hx Recreational Drug Use: No Drugs: None Hx Prescription Drug Abuse: No Family History Family History: Reviewed & Not Pertinent, COPD, Malignancy - Lung cancer Parental Family History Reviewed: Yes Children Family History Reviewed: Yes Sibling(s) Family History Reviewed.: Yes Medication/Allergy Allergies/Adverse Reactions: azithromycin Allergy (Verified 12/30/18 17:18) cephalexin Allergy (Verified 12/30/18 17:18) Penicillins Allergy (Verified 12/30/18 17:18) amoxicillin [Amoxicillin] Adverse Reaction (Verified 12/30/18 17:18) visual hallucinations erythromycin base [Erythromycin Base] Adverse Reaction (Verified 12/30/18 17:18) visual hallucinations Potassium Clavulanate * [From Augmentin] Adverse Reaction (Verified 12/30/18 17:18) visual hallucinations Review of Systems Review of Systems: as per hpi Physical Exam Vital Signs: Temp Pulse Resp BP Pulse Ox 98 F 20 111/60 93 01/25/19 14:49 01/25/19 17:01 01/25/19 17:00 01/25/19 17:01 General appearance: PRESENT: obese Respiratory exam: PRESENT: decreased breath sounds, rhonchi, wheezes. ABSENT: rales Cardiovascular exam: PRESENT: RRR. ABSENT: diastolic murmur, rubs, systolic murmur GI/Abdominal exam: PRESENT: normal bowel sounds, soft. ABSENT: distended, guarding, mass, organolmegaly, rebound, tenderness Neurological exam: PRESENT: alert, awake, oriented to person, oriented to place, oriented to time, oriented to situation, CN II-XII grossly intact. ABSENT: motor sensory deficit Results Laboratory Results: 01/25/19 15:10 01/25/19 15:10 01/25/19 01/25/19 01/25/19 14:50 15:10 15:10 WBC 12.8 H RBC 2.84 L Hgb 9.4 L Hct 28.3 L MCV 100 H MCH 33.0 MCHC 33.2 RDW 15.6 H Plt Count 212 Seg Neutrophils % Not Reportable Lymphocytes % Not Reportable Monocytes % Not Reportable Eosinophils % Not Reportable Basophils % Not Reportable Absolute Neutrophils Not Reportable Absolute Lymphocytes Not Reportable Absolute Monocytes Not Reportable Absolute Eosinophils Not Reportable Absolute Basophils Not Reportable Carbonic Acid HCO3/H2CO3 Ratio ABG pH ABG pCO2 ABG pO2 ABG HCO3 ABG O2 Saturation ABG Base Excess FiO2 Sodium 139.7 Potassium 4.2 Chloride 97 L Carbon Dioxide 37 H Anion Gap 6 BUN 23 H Creatinine 0.93 Est GFR ( Amer) > 60 Est GFR (Non-Af Amer) 59 L Glucose 226 H Lactic Acid 2.5 H Calcium 9.4 Total Bilirubin 0.2 AST 18 ALT 17 Alkaline Phosphatase 70 Total Protein 5.5 L Albumin 3.4 L 01/25/19 16:42 WBC RBC Hgb Hct MCV MCH MCHC RDW Plt Count Seg Neutrophils % Lymphocytes % Monocytes % Eosinophils % Basophils % Absolute Neutrophils Absolute Lymphocytes Absolute Monocytes Absolute Eosinophils Absolute Basophils Carbonic Acid 1.87 H HCO3/H2CO3 Ratio 19:1 ABG pH 7.39 ABG pCO2 62.1 H ABG pO2 108.4 H ABG HCO3 36.9 H ABG O2 Saturation 97.8 ABG Base Excess 10.3 FiO2 ROOM AIR Sodium Potassium Chloride Carbon Dioxide Anion Gap BUN Creatinine Est GFR ( Amer) Est GFR (Non-Af Amer) Glucose Lactic Acid Calcium Total Bilirubin AST ALT Alkaline Phosphatase Total Protein Albumin 01/25/19 01/25/19 15:10 15:10 Creatine Kinase 21 L CK-MB (CK-2) 0.74 Troponin I 0.014 Impressions: Chest X-Ray 01/25/19 15:49 IMPRESSION: STABLE CHRONIC SCARRING IN THE RIGHT HILUM. NO ACUTE RADIOGRAPHIC FINDING IN THE CHEST. Assessment and Plan - Diagnosis (1) Acute and chronic respiratory failure Qualifiers: Respiratory failure complication: hypercapnia Qualified Code(s): J96.22 - Acute and chronic respiratory failure with hypercapnia Is this a current diagnosis for this admission?: Yes Plan: Acute respiratory failure with hypercarbia. Likely ue to COPD exacerbation underlying pneumonia. Empiric IV antibiotics, duo nebs, IV steroids, BiPAP, supplemental oxygen, incentive spirometry, flutter valve. Blood and sputum culture. CBC, CMP, ABG tomorrow. (2) Pneumonia Qualifiers: Pneumonia type: due to unspecified organism Laterality: unspecified laterality Lung location: unspecified part of lung Qualified Code(s): J18.9 - Pneumonia, unspecified organism Is this a current diagnosis for this admission?: Yes Plan: Likely community-acquired due to gram-positive including strep pneumo. Empiric IV antibiotics. Blood culture, sputum culture. (3) COPD with exacerbation Is this a current diagnosis for this admission?: Yes Plan: On home O2. As per #1. (4) CHF (congestive heart failure) Qualifiers: Heart failure type: diastolic Heart failure chronicity: chronic Qualified Code(s): I50.32 - Chronic diastolic (congestive) heart failure Is this a current diagnosis for this admission?: Yes Plan: Chronic. Does not seem to be exacerbated. Cardiac diet, fluid restriction, diuretics, STACY, beta-blockers. Outpatient cardiology and PCP follow-up. (5) Chronic anemia Is this a current diagnosis for this admission?: Yes Plan: Stable. Monitor H&H. Daily CBC. Continue ferrous sulfate. (6) Constipation Is this a current diagnosis for this admission?: Yes Plan: Chronic. Bowel regimen. Encourage high-fiber diet. (7) Coronary artery disease Qualifiers: Is this a current diagnosis for this admission?: Yes Plan: Denies any anginal pain. Continue antiplatelets, STACY, statins, beta-blockers. (9) Hyperlipidemia Qualifiers: Is this a current diagnosis for this admission?: No Plan: Diet and lifestyle modification. Restart statins.
[2019-01-25] MEDS ORDERED: HYDRALAZINE HCL INJ/PF 20 MG/1 ML SDV IV PRN (17:33)
[2019-01-25] MEDS ORDERED: BISACODYL 5 MG TABEC PO PRN (17:34)
[2019-01-25] MEDS: METOPROLOL SUCCINATE 25 MG TAB.SR.24H PO SCH (18:44)
[2019-01-25] MEDS: DOCUSATE SODIUM 100 MG CAPSULE PO SCH (18:46)
[2019-01-25] MEDS ORDERED: ENOXAPARIN SODIUM INJ 40 MG/0.4 ML DISP.SYRIN SUBCUT ONE (19:00)
[2019-01-25] MEDS: IPRATROPIUM/ALBUTEROL 0.5-2.5 MG/3 ML AMPUL NEB SCH (20:01)
[2019-01-25] MEDS: OXYCODONE-ACETAMINOPHEN 5-325 MG TABLET PO PRN (23:12)
[2019-01-25] MEDS: FUROSEMIDE INJ/PF 20 MG/2 ML SDV IV SCH (23:13)
[2019-01-25] MEDS: FAMOTIDINE 20 MG TABLET PO SCH (23:13)
[2019-01-25] MEDS: METHYLPREDNISOLONE INJ 40 MG/1 ML SDV IV SCH (23:14)
[2019-01-25] MEDS: SALMETEROL XINAFOATE DISKUS 50 MCG/1 DOSE 28 DOSE IH SCH (23:41)
[2019-01-26] MEDS: LEVOTHYROXINE SODIUM 0.1 MG TABLET PO SCH (05:03)
[2019-01-26] MEDS: METHYLPREDNISOLONE INJ 40 MG/1 ML SDV IV SCH ×3 (05:04→22:11)
[2019-01-26 05:55] LABS: HEMATOCRIT 26.9 % (36.0-47.0); MEAN CORPUSCULAR HEMOGLOBIN 33.1 pg (27.0-33.4); MEAN CORPUSCULAR HGB CONC 33.4 g/dL (32.0-36.0); MEAN CORPUSCULAR VOLUME 99 fl (80-97); PLATELET COUNT 198 10^3/uL (150-450); RED CELL DISTRIBUTION WIDTH 15.2 % (11.5-14.0); WHITE BLOOD COUNT 11.9 10^3/uL (4.0-10.5)
[2019-01-26 06:07] LABS: ANION GAP 5 (5-19); BLOOD UREA NITROGEN 21 mg/dL (7-20); CALCIUM 8.8 mg/dL (8.4-10.2); CARBON DIOXIDE 39 mmol/L (22-30); CHLORIDE 98 mmol/L (98-107); GLUCOSE 153 mg/dL (75-110); POTASSIUM 4.7 mmol/L (3.6-5.0); SODIUM 141.7 mmol/L (137-145)
[2019-01-26 06:21] LABS: ARTERIAL BLOOD BASE EXCESS 11.8 mmol/L; ARTERIAL BLOOD FIO2 28%; ARTERIAL BLOOD H2CO3 1.85 mmol/L (1.05-1.35); ARTERIAL BLOOD HCO3 38.2 mmol/L (20-24); ARTERIAL BLOOD O2 SATURATION 98.4 % (94-98); ARTERIAL BLOOD PCO2 61.3 mmHg (35-45); ARTERIAL BLOOD PH 7.41 (7.35-7.45); ARTERIAL BLOOD PO2 122.7 mmHg (80-100); ARTERIAL BLOOD TOTAL CO2 40.1 mmol/L (21-25)
[2019-01-26 06:32] LABS: ABSOLUTE LYMPHOCYTES# (MANUAL) 0.1 10^3/uL (0.5-4.7); ABSOLUTE MONOCYTES # (MANUAL) 0.1 10^3/uL (0.1-1.4); BASOPHILS % (MANUAL) 0 % (0-2); EOSINOPHILS % (MANUAL) 0 % (0-6); LYMPHOCYTES % (MANUAL) 1 % (13-45); MONOCYTES % (MANUAL) 1 % (3-13); PLATELET COMMENT ADEQUATE; RBC MORPHOLOGY COMMENT NORMO-CYTIC/CHROMIC; SEGMENTED NEUTROPHILS % (MAN) 98 % (42-78); TOTAL CELLS COUNTED 100
[2019-01-26] MEDS: IPRATROPIUM/ALBUTEROL 0.5-2.5 MG/3 ML AMPUL NEB SCH ×3 (08:02→19:53)
[2019-01-26] MEDS: POLYETHYLENE GLYCOL 3350 POWDER 17 GM/1 PACKET PO SCH (09:21)
[2019-01-26] MEDS: ENOXAPARIN SODIUM INJ 40 MG/0.4 ML DISP.SYRIN SUBCUT SCH (09:21)
[2019-01-26] MEDS: FAMOTIDINE 20 MG TABLET PO SCH ×2 (09:21→22:11)
[2019-01-26] MEDS: METOPROLOL SUCCINATE 25 MG TAB.SR.24H PO SCH (09:21)
[2019-01-26] MEDS: DOCUSATE SODIUM 100 MG CAPSULE PO SCH ×2 (09:21→17:29)
[2019-01-26] MEDS: FUROSEMIDE INJ/PF 20 MG/2 ML SDV IV SCH ×2 (09:21→22:11)
[2019-01-26] MEDS: LEVOFLOXACIN 500 MG/D5W RTU 500 MG/100 ML RTUPB IV SCH (09:21)
[2019-01-26] MEDS: SALMETEROL XINAFOATE DISKUS 50 MCG/1 DOSE 28 DOSE IH SCH ×2 (09:22→22:28)
[2019-01-26] MEDS: TIOTROPIUM BROMIDE DPI 5 CAP/KIT (18 MCG/CAP) IH SCH (10:36)
--- NOTE | 2019-01-26 12:05 | PDOC PROGRESS REPORT ---
Subjective Progress Note for:: 01/26/19 Subjective:: TRENTON MCCOY is a 73 year old female past medical history of metastatic lung cancer, CHF, CAD, hypertension, hyperlipidemia, COPD on home O2, hypothyroidism, recurrent UTIs. Last hospitalization 11/29/2018 to 12/18/2018. Was admitted for MARY LOU, COPD exacerbation, UTI, CAD, hypertension. Patient presenting to ED complaining of shortness of breath, nonproductive coug h, generalized body aches, Yesterday she went to her PCP was started on prednisone and Levaquin. She has been using her meds along with albuterol inhaler with no significant improvement in her symptoms. Decided to come to ED. Denies any chest pain, fever, nausea, vomiting, diarrhea, constipation, or any urinary symptoms. In the ED she was found to have leukocytosis, hypoxemia, and lactic acidosis. Hospitalist was consulted for admission. 01/26/2019. Reporting improvement of her soreness of breath, denies any fever, chills, nausea, vomiting, diarrhea, constipation or any urinary symptoms. P.o. tolerant having normal bowel and bladder movements. SBP 217743, T-max 98.3, RR 1624, HR 950203, SPO2 95% 2 L NC. ABG: pH 7.4, PCO2 61.3, PO2 122.7, FiO2 28%. Reason For Visit: ACUTE RESPIRATORY FAILURE,PNEUMONIA Physical Exam Vital Signs: Temp Pulse Resp BP Pulse Ox 98.3 F 101 H 16 129/68 H 95 01/26/19 07:53 01/26/19 08:02 01/26/19 08:02 01/26/19 07:53 01/26/19 08:02 Intake & Output 01/25/19 01/26/19 01/27/19 06:59 06:59 06:59 Intake Total 1650 Balance 1650 Weight 85.7 kg General appearance: PRESENT: obese Head exam: PRESENT: atraumatic, normocephalic Eye exam: PRESENT: conjunctiva pink, EOMI, PERRLA. ABSENT: scleral icterus Respiratory exam: PRESENT: decreased breath sounds, wheezes. ABSENT: rales, rhonchi Cardiovascular exam: PRESENT: RRR. ABSENT: diastolic murmur, rubs, systolic murmur Neurological exam: PRESENT: alert, awake, oriented to person, oriented to place, oriented to time, oriented to situation, CN II-XII grossly intact. ABSENT: motor sensory deficit Results Laboratory Results: 01/26/19 05:15 01/26/19 05:15 01/25/19 01/25/19 01/25/19 14:50 15:10 15:10 WBC 12.8 H RBC 2.84 L Hgb 9.4 L Hct 28.3 L MCV 100 H MCH 33.0 MCHC 33.2 RDW 15.6 H Plt Count 212 Seg Neutrophils % Not Reportable Lymphocytes % Not Reportable Monocytes % Not Reportable Eosinophils % Not Reportable Basophils % Not Reportable Absolute Neutrophils Not Reportable Absolute Lymphocytes Not Reportable Absolute Monocytes Not Reportable Absolute Eosinophils Not Reportable Absolute Basophils Not Reportable Carbonic Acid HCO3/H2CO3 Ratio ABG pH ABG pCO2 ABG pO2 ABG HCO3 ABG O2 Saturation ABG Base Excess FiO2 Sodium 139.7 Potassium 4.2 Chloride 97 L Carbon Dioxide 37 H Anion Gap 6 BUN 23 H Creatinine 0.93 Est GFR ( Amer) > 60 Est GFR (Non-Af Amer) 59 L Glucose 226 H Lactic Acid 2.5 H Calcium 9.4 Magnesium Total Bilirubin 0.2 AST 18 ALT 17 Alkaline Phosphatase 70 Total Protein 5.5 L Albumin 3.4 L 01/25/19 01/25/19 01/26/19 16:42 20:45 05:15 WBC 11.9 H RBC 2.70 L Hgb 9.0 L Hct 26.9 L MCV 99 H MCH 33.1 MCHC 33.4 RDW 15.2 H Plt Count 198 Seg Neutrophils % Not Reportable Lymphocytes % Not Reportable Monocytes % Not Reportable Eosinophils % Not Reportable Basophils % Not Reportable Absolute Neutrophils Not Reportable Absolute Lymphocytes Not Reportable Absolute Monocytes Not Reportable Absolute Eosinophils Not Reportable Absolute Basophils Not Reportable Carbonic Acid 1.87 H HCO3/H2CO3 Ratio 19:1 ABG pH 7.39 ABG pCO2 62.1 H ABG pO2 108.4 H ABG HCO3 36.9 H ABG O2 Saturation 97.8 ABG Base Excess 10.3 FiO2 ROOM AIR Sodium Potassium Chloride Carbon Dioxide Anion Gap BUN Creatinine Est GFR ( Amer) Est GFR (Non-Af Amer) Glucose Lactic Acid 1.6 Calcium Magnesium Total Bilirubin AST ALT Alkaline Phosphatase Total Protein Albumin 01/26/19 01/26/19 05:15 06:10 WBC RBC Hgb Hct MCV MCH MCHC RDW Plt Count Seg Neutrophils % Lymphocytes % Monocytes % Eosinophils % Basophils % Absolute Neutrophils Absolute Lymphocytes Absolute Monocytes Absolute Eosinophils Absolute Basophils Carbonic Acid 1.85 H HCO3/H2CO3 Ratio 20:1 ABG pH 7.41 ABG pCO2 61.3 H ABG pO2 122.7 H ABG HCO3 38.2 H ABG O2 Saturation 98.4 H ABG Base Excess 11.8 FiO2 28% Sodium 141.7 Potassium 4.7 Chloride 98 Carbon Dioxide 39 H Anion Gap 5 BUN 21 H Creatinine 1.07 Est GFR ( Amer) > 60 Est GFR (Non-Af Amer) 50 L Glucose 153 H Lactic Acid Calcium 8.8 Magnesium 2.0 Total Bilirubin AST ALT Alkaline Phosphatase Total Protein Albumin 01/25/19 01/25/19 15:10 15:10 Creatine Kinase 21 L CK-MB (CK-2) 0.74 Troponin I 0.014 Impressions: Chest X-Ray 01/25/19 15:49 IMPRESSION: STABLE CHRONIC SCARRING IN THE RIGHT HILUM. NO ACUTE RADIOGRAPHIC FINDING IN THE CHEST. Assessment and Plan - Diagnosis (1) Acute and chronic respiratory failure Qualifiers: Respiratory failure complication: hypercapnia Qualified Code(s): J96.22 - Acute and chronic respiratory failure with hypercapnia Is this a current diagnosis for this admission?: Yes Plan: Mild improvement. Acute respiratory failure with hypercarbia. Likely ue to COPD exacerbation underlying pneumonia. 01/26/2019. SBP 748613, T-max 98.3, RR 1624, HR 235560, SPO2 95% 2 L NC. ABG: pH 7.4, PCO2 61.3, PO2 122.7, FiO2 28%. Antibiotics day 2/5 Levofloxacin day 2. Continue empiric IV antibiotics, duo nebs, IV steroids, BiPAP, supplemental oxygen, incentive spirometry, flutter valve. Blood and sputum culture no growth so far. CBC, CMP, ABG tomorrow. (2) Pneumonia Qualifiers: Pneumonia type: due to unspecified organism Laterality: unspecified laterality Lung location: unspecified part of lung Qualified Code(s): J18.9 - Pneumonia, unspecified organism Is this a current diagnosis for this admission?: Yes Plan: Likely community-acquired due to gram-positive including strep pneumo. As per #1 (3) COPD with exacerbation Is this a current diagnosis for this admission?: Yes Plan: On home O2. As per #1. (4) CHF (congestive heart failure) Qualifiers: Heart failure type: diastolic Heart failure chronicity: chronic Qualified Code(s): I50.32 - Chronic diastolic (congestive) heart failure Is this a current diagnosis for this admission?: Yes Plan: Chronic. Does not seem to be exacerbated. Cardiac diet, fluid restriction, diuretics, STACY, beta-blockers. Outpatient cardiology and PCP follow-up. (5) Chronic anemia Is this a current diagnosis for this admission?: Yes Plan: Stable. Monitor H&H. Daily CBC. Continue ferrous sulfate. (6) Constipation Is this a current diagnosis for this admission?: Yes Plan: Chronic. Bowel regimen. Encourage high-fiber diet. (7) Coronary artery disease Qualifiers: Is this a current diagnosis for this admission?: Yes Plan: Denies any anginal pain. Continue antiplatelets, STACY, statins, beta-blockers. (8) Hyperlipidemia Qualifiers: Is this a current diagnosis for this admission?: No Plan: Diet and lifestyle modification. Restart statins. (9) Hypothyroidism (acquired) Is this a current diagnosis for this admission?: Yes Plan: Restart home meds. Will obtain new TSH level.
[2019-01-26 13:33] LABS: FREE T3 2.51 pg/mL (2.77-5.27); FREE T4 (FREE THYROXINE) 0.93 ng/dL (0.78-2.19)
[2019-01-26 13:47] LABS: THYROID STIMULATING HORMONE 1.06 uIU/mL (0.47-4.68)
--- NOTE | 2019-01-27 00:17 | EKG REPORT ---
SEVERITY:- ABNORMAL ECG - SINUS TACHYCARDIA RIGHT BUNDLE BRANCH BLOCK : Confirmed by: Mercedes Solomon 27-Jan-2019 00:17:12
[2019-01-27] MEDS: OXYCODONE-ACETAMINOPHEN 5-325 MG TABLET PO PRN ×2 (02:23→19:32)
[2019-01-27] MEDS: TEMAZEPAM 7.5 MG CAPSULE PO PRN ×2 (02:23→21:36)
[2019-01-27] MEDS ORDERED: DEXTROSE 40% GEL 15 GM TUBE X 2 PO PRN (05:00)
[2019-01-27] MEDS ORDERED: DEXTROSE 50%-WATER SYRINGE 12.5 GM/25 ML DOSE IV PRN (05:00)
[2019-01-27] MEDS ORDERED: DEXTROSE 40% GEL 15 GM TUBE PO PRN (05:00)
[2019-01-27] MEDS ORDERED: DEXTROSE 50%-WATER SYRINGE 25 GM/50 ML DOSE IV PRN (05:00)
[2019-01-27] MEDS ORDERED: GLUCAGON,HUMAN RECOMB 1 MG INJ IM PRN (05:00)
[2019-01-27] MEDS: METHYLPREDNISOLONE INJ 40 MG/1 ML SDV IV SCH ×3 (05:45→21:36)
[2019-01-27] MEDS: LEVOTHYROXINE SODIUM 0.1 MG TABLET PO SCH (05:45)
[2019-01-27 07:01] LABS: HEMATOCRIT 26.7 % (36.0-47.0); HEMOGLOBIN 9.2 g/dL (12.0-15.5); MEAN CORPUSCULAR HEMOGLOBIN 33.6 pg (27.0-33.4); MEAN CORPUSCULAR HGB CONC 34.2 g/dL (32.0-36.0); MEAN CORPUSCULAR VOLUME 98 fl (80-97); PLATELET COUNT 219 10^3/uL (150-450); RED BLOOD COUNT 2.72 10^6/uL (3.72-5.28); RED CELL DISTRIBUTION WIDTH 15.5 % (11.5-14.0); WHITE BLOOD COUNT 10.2 10^3/uL (4.0-10.5)
[2019-01-27 07:23] LABS: BLOOD UREA NITROGEN 30 mg/dL (7-20); CALCIUM 8.7 mg/dL (8.4-10.2); CHLORIDE 92 mmol/L (98-107); GLUCOSE 138 mg/dL (75-110); SODIUM 138.9 mmol/L (137-145)
[2019-01-27 07:29] LABS: ANION GAP 8 (5-19)
[2019-01-27 07:30] LABS: CARBON DIOXIDE 39 mmol/L (22-30)
[2019-01-27 07:36] LABS: ABSOLUTE LYMPHOCYTES# (MANUAL) 0.6 10^3/uL (0.5-4.7); ABSOLUTE MONOCYTES # (MANUAL) 0.2 10^3/uL (0.1-1.4); BASOPHILS % (MANUAL) 0 % (0-2); EOSINOPHILS % (MANUAL) 0 % (0-6); LYMPHOCYTES % (MANUAL) 6 % (13-45); MONOCYTES % (MANUAL) 2 % (3-13); SEGMENTED NEUTROPHILS % (MAN) 92 % (42-78); TOTAL CELLS COUNTED 100
[2019-01-27 07:37] LABS: ANISOCYTOSIS SLIGHT; OVALOCYTES SLIGHT; POIKILOCYTOSIS 1+
[2019-01-27 07:38] LABS: PLATELET COMMENT ADEQUATE; TEAR DROP CELLS SLIGHT
[2019-01-27] MEDS: IPRATROPIUM/ALBUTEROL 0.5-2.5 MG/3 ML AMPUL NEB SCH ×3 (08:00→20:04)
[2019-01-27] MEDS: INSULIN LISPRO 100 UNIT/ML 3 ML VIAL SUBCUT SCH ×4 (09:19→21:34)
--- NOTE | 2019-01-27 09:29 | PDOC PROGRESS REPORT ---
Subjective Progress Note for:: 01/27/19 Subjective:: TRENTON MCCOY is a 73 year old female past medical history of metastatic lung cancer, CHF, CAD, hypertension, hyperlipidemia, COPD on home O2, hypothyroidism, recurrent UTIs. Last hospitalization 11/29/2018 to 12/18/2018. Was admitted for MARY LOU, COPD exacerbation, UTI, CAD, hypertension. Patient presenting to ED complaining of shortness of breath, nonproductive coug h, generalized body aches, Yesterday she went to her PCP was started on prednisone and Levaquin. She has been using her meds along with albuterol inhaler with no significant improvement in her symptoms. Decided to come to ED. Denies any chest pain, fever, nausea, vomiting, diarrhea, constipation, or any urinary symptoms. In the ED she was found to have leukocytosis, hypoxemia, and lactic acidosis. Hospitalist was consulted for admission. 01/26/2019. Reporting improvement of her soreness of breath, denies any fever, chills, nausea, vomiting, diarrhea, constipation or any urinary symptoms. P.o. tolerant having normal bowel and bladder movements. SBP 134287, T-max 98.3, RR 1624, HR 684441, SPO2 95% 2 L NC. ABG: pH 7.4, PCO2 61.3, PO2 122.7, FiO2 28%. 01/27/2019. Still complaining of shortness of breath, good night sleep overnight, dependent on BiPAP and supplemental oxygen. Denies any fever, chills, nausea, vomiting, diarrhea, constipation or any urinary symptoms. Endo rses productive coughing. SBP 880683 T-max 98.3, pulse 90s, RR 1824 SPO2 100% 4 L NC. WBC 10.2, hemoglobin 9.2, platelets 219, Reason For Visit: ACUTE RESPIRATORY FAILURE,PNEUMONIA Physical Exam Vital Signs: Temp Pulse Resp BP Pulse Ox 98.3 F 93 24 H 141/70 H 100 01/26/19 23:17 01/27/19 07:00 01/26/19 23:17 01/26/19 23:17 01/26/19 23:17 Intake & Output 01/26/19 01/27/19 01/28/19 06:59 06:59 06:59 Intake Total 1650 1753 Output Total 800 Balance 1650 953 Weight 85.7 kg 83.3 kg General appearance: PRESENT: mild distress, obese Head exam: PRESENT: atraumatic, normocephalic Respiratory exam: PRESENT: decreased breath sounds, wheezes. ABSENT: rales, rhonchi Cardiovascular exam: PRESENT: RRR. ABSENT: diastolic murmur, rubs, systolic murmur Pulses: PRESENT: normal dorsalis pedis pul GI/Abdominal exam: PRESENT: normal bowel sounds, soft. ABSENT: distended, guarding, mass, organolmegaly, rebound, tenderness Neurological exam: PRESENT: alert, awake, oriented to person, oriented to place, oriented to time, oriented to situation, CN II-XII grossly intact. ABSENT: motor sensory deficit Results Laboratory Results: 01/27/19 05:57 01/27/19 05:57 01/26/19 01/27/19 01/27/19 05:15 05:57 05:57 WBC 10.2 RBC 2.72 L Hgb 9.2 L Hct 26.7 L MCV 98 H MCH 33.6 H MCHC 34.2 RDW 15.5 H Plt Count 219 Seg Neutrophils % Not Reportable Lymphocytes % Not Reportable Monocytes % Not Reportable Eosinophils % Not Reportable Basophils % Not Reportable Absolute Neutrophils Not Reportable Absolute Lymphocytes Not Reportable Absolute Monocytes Not Reportable Absolute Eosinophils Not Reportable Absolute Basophils Not Reportable Sodium 138.9 Potassium 4.0 Chloride 92 L Carbon Dioxide 39 H Anion Gap 8 BUN 30 H Creatinine 1.11 Est GFR ( Amer) 58 L Est GFR (Non-Af Amer) 48 L Glucose 138 H Calcium 8.7 Magnesium 2.1 TSH 1.06 Free T4 0.93 Free T3 pg/mL 2.51 L 01/25/19 01/25/19 15:10 15:10 Creatine Kinase 21 L CK-MB (CK-2) 0.74 Troponin I 0.014 Impressions: Chest X-Ray 01/25/19 15:49 IMPRESSION: STABLE CHRONIC SCARRING IN THE RIGHT HILUM. NO ACUTE RADIOGRAPHIC FINDING IN THE CHEST. Assessment and Plan - Diagnosis (1) Acute and chronic respiratory failure Qualifiers: Respiratory failure complication: hypercapnia Qualified Code(s): J96.22 - Acute and chronic respiratory failure with hypercapnia Is this a current diagnosis for this admission?: Yes Plan: No significant improvement. Still dependent on BiPAP and supplemental oxygen. Acute respiratory failure with hypercarbia. Likely ue to COPD exacerbation underlying pneumonia. 01/27/2019. SBP 042799 T-max 98.3, pulse 90s, RR 1824 SPO2 100% 4 L NC. 01/26/2019. SBP 046438, T-max 98.3, RR 1624, HR 314632, SPO2 95% 2 L NC. ABG: pH 7.4, PCO2 61.3, PO2 122.7, FiO2 28%. Antibiotics day 3/5 Day 3 of levofloxacin. Day 1 of vancomycin. Blood cultures positive for gram-positive cocci in clusters. Continue empiric IV antibiotics, duo nebs, IV steroids, BiPAP, supplemental oxygen, incentive spirometry, flutter valve, repeat blood cultures. CBC, CMP, ABG tomorrow. (2) Pneumonia Qualifiers: Pneumonia type: due to unspecified organism Laterality: unspecified laterality Lung location: unspecified part of lung Qualified Code(s): J18.9 - Pneumonia, unspecified organism Is this a current diagnosis for this admission?: Yes Plan: Likely hospital-acquired as patient has history of recurrent hospitalization. Culture positive for gram-positive cocci. Will add vancomycin. Continue levo. Repeat blood on sputum culture. As per #1 (3) COPD with exacerbation Is this a current diagnosis for this admission?: Yes Plan: On home O2. As per #1. (4) CHF (congestive heart failure) Qualifiers: Heart failure type: diastolic Heart failure chronicity: chronic Qualified Code(s): I50.32 - Chronic diastolic (congestive) heart failure Is this a current diagnosis for this admission?: Yes Plan: Chronic. Does not seem to be exacerbated. Cardiac diet, fluid restriction, diuretics, STACY, beta-blockers. Outpatient cardiology and PCP follow-up. (5) Chronic anemia Is this a current diagnosis for this admission?: Yes Plan: Stable. Monitor H&H. Daily CBC. Continue ferrous sulfate. (6) Constipation Is this a current diagnosis for this admission?: Yes Plan: Chronic. Bowel regimen. Encourage high-fiber diet. (7) Coronary artery disease Qualifiers: Is this a current diagnosis for this admission?: Yes Plan: Denies any anginal pain. Continue antiplatelets, STACY, statins, beta-blockers. (8) Hyperlipidemia Qualifiers: Is this a current diagnosis for this admission?: No Plan: Diet and lifestyle modification. Restart statins. (9) Hypothyroidism (acquired) Is this a current diagnosis for this admission?: Yes Plan: Restart home meds. Thyroid function tests WNL.
[2019-01-27] MEDS ORDERED: VANCOMYCIN HCL 0 MG in DEXTROSE 5%-WATER 250 ML IV NR (09:30)
[2019-01-27] MEDS ORDERED: CEFEPIME 1 GM/D5W RTU 1 GM/50 ML RTUPB IV SCH (10:00)
[2019-01-27] MEDS: POLYETHYLENE GLYCOL 3350 POWDER 17 GM/1 PACKET PO SCH (10:16)
[2019-01-27] MEDS: LEVOFLOXACIN 500 MG/D5W RTU 500 MG/100 ML RTUPB IV SCH (10:17)
[2019-01-27] MEDS: FUROSEMIDE INJ/PF 20 MG/2 ML SDV IV SCH ×2 (10:17→21:35)
[2019-01-27] MEDS: DOCUSATE SODIUM 100 MG CAPSULE PO SCH ×2 (10:17→17:34)
[2019-01-27] MEDS: TIOTROPIUM BROMIDE DPI 5 CAP/KIT (18 MCG/CAP) IH SCH (10:17)
[2019-01-27] MEDS: METOPROLOL SUCCINATE 25 MG TAB.SR.24H PO SCH (10:17)
[2019-01-27] MEDS: ENOXAPARIN SODIUM INJ 40 MG/0.4 ML DISP.SYRIN SUBCUT SCH (10:17)
[2019-01-27] MEDS: FAMOTIDINE 20 MG TABLET PO SCH ×2 (10:17→21:36)
[2019-01-27] MEDS: SALMETEROL XINAFOATE DISKUS 50 MCG/1 DOSE 28 DOSE IH SCH ×2 (12:12→21:34)
[2019-01-27] MEDS: VANCOMYCIN HCL 1,500 MG in DEXTROSE 5%-WATER 250 ML IV SCH (12:16)
[2019-01-28 04:31] LABS: HEMOGLOBIN 9.8 g/dL (12.0-15.5); MEAN CORPUSCULAR HEMOGLOBIN 32.4 pg (27.0-33.4); MEAN CORPUSCULAR HGB CONC 32.9 g/dL (32.0-36.0); MEAN CORPUSCULAR VOLUME 99 fl (80-97); RED BLOOD COUNT 3.04 10^6/uL (3.72-5.28); RED CELL DISTRIBUTION WIDTH 15.2 % (11.5-14.0); WHITE BLOOD COUNT 8.3 10^3/uL (4.0-10.5)
[2019-01-28 04:42] LABS: BLOOD UREA NITROGEN 44 mg/dL (7-20); CALCIUM 8.3 mg/dL (8.4-10.2); CHLORIDE 95 mmol/L (98-107); GLUCOSE 163 mg/dL (75-110); SODIUM 139.7 mmol/L (137-145)
[2019-01-28 04:50] LABS: CARBON DIOXIDE 41 mmol/L (22-30)
[2019-01-28 05:06] LABS: ABSOLUTE LYMPHOCYTES# (MANUAL) 0.2 10^3/uL (0.5-4.7); ABSOLUTE MONOCYTES # (MANUAL) 0.2 10^3/uL (0.1-1.4); BAND NEUTROPHILS % (MANUAL) 4 % (3-5); BASOPHILS % (MANUAL) 0 % (0-2); EOSINOPHILS % (MANUAL) 0 % (0-6); LYMPHOCYTES % (MANUAL) 2 % (13-45); MONOCYTES % (MANUAL) 2 % (3-13); PLATELET CLUMPS PRESENT; SEGMENTED NEUTROPHILS % (MAN) 92 % (42-78); TOTAL CELLS COUNTED 100
[2019-01-28 05:07] LABS: ANISOCYTOSIS 1+; HYPOCHROMASIA 1+; PLATELET COUNT 169 10^3/uL (150-450); POIKILOCYTOSIS SLIGHT
[2019-01-28 05:15] LABS: ANION GAP 4 (5-19)
[2019-01-28] MEDS: METHYLPREDNISOLONE INJ 40 MG/1 ML SDV IV SCH (05:34)
[2019-01-28] MEDS: LEVOTHYROXINE SODIUM 0.1 MG TABLET PO SCH (05:35)
[2019-01-28 06:18] LABS: ARTERIAL BLOOD BASE EXCESS 13.8 mmol/L; ARTERIAL BLOOD HCO3 40.7 mmol/L (20-24); ARTERIAL BLOOD O2 SATURATION 99.5 % (94-98); ARTERIAL BLOOD PCO2 66.5 mmHg (35-45); ARTERIAL BLOOD PH 7.41 (7.35-7.45); ARTERIAL BLOOD PO2 242.5 mmHg (80-100); ARTERIAL BLOOD TOTAL CO2 42.8 mmol/L (21-25)
[2019-01-28 06:19] LABS: ARTERIAL BLOOD FIO2 3L
[2019-01-28] MEDS: IPRATROPIUM/ALBUTEROL 0.5-2.5 MG/3 ML AMPUL NEB SCH (07:29)
[2019-01-28] MEDS: INSULIN LISPRO 100 UNIT/ML 3 ML VIAL SUBCUT SCH ×4 (08:09→22:10)
[2019-01-28] MEDS: METOPROLOL SUCCINATE 25 MG TAB.SR.24H PO SCH (09:06)
[2019-01-28] MEDS: LEVOFLOXACIN 500 MG/D5W RTU 500 MG/100 ML RTUPB IV SCH (09:06)
[2019-01-28] MEDS: FAMOTIDINE 20 MG TABLET PO SCH ×2 (09:06→22:10)
[2019-01-28] MEDS: FUROSEMIDE INJ/PF 20 MG/2 ML SDV IV SCH ×2 (09:06→22:09)
[2019-01-28] MEDS: DOCUSATE SODIUM 100 MG CAPSULE PO SCH ×2 (09:06→17:25)
[2019-01-28] MEDS: ENOXAPARIN SODIUM INJ 40 MG/0.4 ML DISP.SYRIN SUBCUT SCH (09:07)
[2019-01-28] MEDS: POLYETHYLENE GLYCOL 3350 POWDER 17 GM/1 PACKET PO SCH (09:07)
[2019-01-28] MEDS: SALMETEROL XINAFOATE DISKUS 50 MCG/1 DOSE 28 DOSE IH SCH ×2 (09:07→22:28)
[2019-01-28] MEDS: TIOTROPIUM BROMIDE DPI 5 CAP/KIT (18 MCG/CAP) IH SCH (09:08)
--- NOTE | 2019-01-28 10:29 | PDOC PROGRESS REPORT ---
Subjective Progress Note for:: 01/28/19 Subjective:: TRENTON MCCOY is a 73 year old female past medical history of metastatic lung cancer, CHF, CAD, hypertension, hyperlipidemia, COPD on home O2, hypothyroidism, recurrent UTIs. Last hospitalization 11/29/2018 to 12/18/2018. Was admitted for MARY LOU, COPD exacerbation, UTI, CAD, hypertension. Patient presenting to ED complaining of shortness of breath, nonproductive coug h, generalized body aches, Yesterday she went to her PCP was started on prednisone and Levaquin. She has been using her meds along with albuterol inhaler with no significant improvement in her symptoms. Decided to come to ED. Denies any chest pain, fever, nausea, vomiting, diarrhea, constipation, or any urinary symptoms. In the ED she was found to have leukocytosis, hypoxemia, and lactic acidosis. Hospitalist was consulted for admission. 01/26/2019. Reporting improvement of her soreness of breath, denies any fever, chills, nausea, vomiting, diarrhea, constipation or any urinary symptoms. P.o. tolerant having normal bowel and bladder movements. SBP 340010, T-max 98.3, RR 1624, HR 748129, SPO2 95% 2 L NC. ABG: pH 7.4, PCO2 61.3, PO2 122.7, FiO2 28%. 01/27/2019. Still complaining of shortness of breath, good night sleep overnight, dependent on BiPAP and supplemental oxygen. Denies any fever, chills, nausea, vomiting, diarrhea, constipation or any urinary symptoms. Endo rses productive coughing. SBP 941193 T-max 98.3, pulse 90s, RR 1824 SPO2 100% 4 L NC. WBC 10.2, hemoglobin 9.2, platelets 219, 01/28/2019. No acute events overnight, patient still having significant wheezing on respiratory examination, still dependent on BiPAP and supplemental oxygen. Denies any chest pain, fever, chills, nausea, vomiting, diarrhea, constipation or any urinary symptoms. SBP 317763, T-max 97.9, pulse 70s, RR 1624, SPO2 100% 3 L NC. ABG: pH 7.4, PCO2 66.5, PO2 242, FiO2 80%. WBC 8.3, hemoglobin 9.8, platelets 169, Sodium 139, potassium 4.0, bicarb 41, BUN 44, creatinine 1.17 Reason For Visit: ACUTE RESPIRATORY FAILURE,PNEUMONIA Physical Exam Vital Signs: Temp Pulse Resp BP Pulse Ox 97.9 F 77 18 134/75 H 100 01/28/19 07:13 01/28/19 07:29 01/28/19 07:29 01/28/19 07:13 01/28/19 07:29 Intake & Output 01/27/19 01/28/19 01/29/19 06:59 06:59 06:59 Intake Total 1753 1050 Output Total 800 3400 Balance 953 -2350 Weight 83.3 kg 81.7 kg General appearance: PRESENT: obese Head exam: PRESENT: atraumatic, normocephalic Respiratory exam: PRESENT: decreased breath sounds, wheezes. ABSENT: rales, rhonchi Cardiovascular exam: PRESENT: RRR. ABSENT: diastolic murmur, rubs, systolic murmur GI/Abdominal exam: PRESENT: normal bowel sounds, soft. ABSENT: distended, guarding, mass, organolmegaly, rebound, tenderness Neurological exam: PRESENT: alert, awake, oriented to person, oriented to place, oriented to time, oriented to situation, CN II-XII grossly intact. ABSENT: motor sensory deficit Results Laboratory Results: 01/28/19 03:34 01/28/19 03:34 01/28/19 01/28/19 01/28/19 03:34 03:34 06:05 WBC 8.3 RBC 3.04 L Hgb 9.8 L Hct 30.0 L MCV 99 H MCH 32.4 MCHC 32.9 RDW 15.2 H Plt Count 169 Seg Neutrophils % Not Reportable Lymphocytes % Not Reportable Monocytes % Not Reportable Eosinophils % Not Reportable Basophils % Not Reportable Absolute Neutrophils Not Reportable Absolute Lymphocytes Not Reportable Absolute Monocytes Not Reportable Absolute Eosinophils Not Reportable Absolute Basophils Not Reportable Carbonic Acid 2.00 H HCO3/H2CO3 Ratio 20:1 ABG pH 7.41 ABG pCO2 66.5 H ABG pO2 242.5 H ABG HCO3 40.7 H ABG O2 Saturation 99.5 H ABG Base Excess 13.8 FiO2 3L Sodium 139.7 Potassium 4.0 Chloride 95 L Carbon Dioxide 41 H* Anion Gap 4 L BUN 44 H Creatinine 1.17 Est GFR ( Amer) 55 L Est GFR (Non-Af Amer) 45 L Glucose 163 H Calcium 8.3 L Magnesium 2.2 01/25/19 01/25/19 15:10 15:10 Creatine Kinase 21 L CK-MB (CK-2) 0.74 Troponin I 0.014 Impressions: Chest X-Ray 01/25/19 15:49 IMPRESSION: STABLE CHRONIC SCARRING IN THE RIGHT HILUM. NO ACUTE RADIOGRAPHIC FINDING IN THE CHEST. Assessment and Plan - Diagnosis (1) Acute and chronic respiratory failure Qualifiers: Respiratory failure complication: hypercapnia Qualified Code(s): J96.22 - Acute and chronic respiratory failure with hypercapnia Is this a current diagnosis for this admission?: Yes Plan: No significant improvement. Still dependent on BiPAP and supplemental oxygen. Acute respiratory failure with hypercarbia. Likely ue to COPD exacerbation underlying HCAP pneumonia. 01/28/2019. SBP 338622, T-max 97.9, pulse 70s, RR 1624, SPO2 100% 3 L NC. ABG: pH 7.4, PCO2 66.5, PO2 242, FiO2 80%. 01/27/2019. SBP 081619 T-max 98.3, pulse 90s, RR 1824 SPO2 100% 4 L NC. 01/26/2019. SBP 098283, T-max 98.3, RR 1624, HR 005808, SPO2 95% 2 L NC. ABG: pH 7.4, PCO2 61.3, PO2 122.7, FiO2 28%. Antibiotics day 4/ Day 1 IV cefepime. Day 2 IV vancomycin. Day 4 IV steroids. Received 3 days of IV levofloxacin, was discharged on 01/28/2019 to cefepime for broader activity against pseudomonas. Blood cultures positive for gram-positive cocci in clusters. Continue empiric IV antibiotics, duo nebs, IV steroids, BiPAP, supplemental oxygen, incentive spirometry, flutter valve, repeat blood cultures. CBC, CMP, ABG tomorrow. (2) Pneumonia Qualifiers: Pneumonia type: due to unspecified organism Laterality: unspecified laterality Lung location: unspecified part of lung Qualified Code(s): J18.9 - Pneumonia, unspecified organism Is this a current diagnosis for this admission?: Yes Plan: Likely hospital-acquired as patient has history of recurrent hospitalization. Culture positive for gram-positive cocci. As per #1. (3) COPD with exacerbation Is this a current diagnosis for this admission?: Yes Plan: On home O2. As per #1. (4) CHF (congestive heart failure) Qualifiers: Heart failure type: diastolic Heart failure chronicity: chronic Qualified Code(s): I50.32 - Chronic diastolic (congestive) heart failure Is this a current diagnosis for this admission?: Yes Plan: Chronic. Does not seem to be exacerbated. Cardiac diet, fluid restriction, diuretics, STACY, beta-blockers. Outpatient cardiology and PCP follow-up. (5) Chronic anemia Is this a current diagnosis for this admission?: Yes Plan: Stable. Monitor H&H. Daily CBC. Continue ferrous sulfate. (6) Constipation Is this a current diagnosis for this admission?: Yes Plan: Chronic. Bowel regimen. Encourage high-fiber diet. (7) Coronary artery disease Qualifiers: Is this a current diagnosis for this admission?: Yes Plan: Denies any anginal pain. Continue antiplatelets, STACY, statins, beta-blockers. (8) Hyperlipidemia Qualifiers: Is this a current diagnosis for this admission?: No Plan: Diet and lifestyle modification. Restart statins. (9) Hypothyroidism (acquired) Is this a current diagnosis for this admission?: Yes Plan: Restart home meds. Thyroid function tests WNL.
[2019-01-28] MEDS ORDERED: ONDANSETRON HCL INJ/PF 4 MG/2 ML SDV IV PRN (11:00)
[2019-01-28] MEDS: VANCOMYCIN HCL 1,500 MG in DEXTROSE 5%-WATER 250 ML IV SCH (12:04)
[2019-01-28] MEDS: METHYLPREDNISOLONE INJ 125 MG/2 ML SDV IV SCH (13:46)
[2019-01-28] MEDS: LEVALBUTEROL HCL NEB 1.25 MG/3 ML AMPUL NEB SCH ×2 (14:01→19:25)
[2019-01-28] MEDS: OXYCODONE-ACETAMINOPHEN 5-325 MG TABLET PO PRN (22:09)
[2019-01-28] MEDS: TEMAZEPAM 7.5 MG CAPSULE PO PRN (22:11)
[2019-01-28] MEDS: CEFEPIME 1 GM/D5W RTU 1 GM/50 ML RTUPB IV SCH (22:22)
[2019-01-29] MEDS: METHYLPREDNISOLONE INJ 125 MG/2 ML SDV IV SCH ×3 (00:15→13:26)
[2019-01-29] MEDS: LEVOTHYROXINE SODIUM 0.1 MG TABLET PO SCH (05:30)
[2019-01-29] MEDS: INSULIN LISPRO 100 UNIT/ML 3 ML VIAL SUBCUT SCH ×2 (07:58→11:50)
[2019-01-29] MEDS: LEVALBUTEROL HCL NEB 1.25 MG/3 ML AMPUL NEB SCH ×2 (09:06→13:45)
[2019-01-29] MEDS: FAMOTIDINE 20 MG TABLET PO SCH (10:48)
[2019-01-29] MEDS: FUROSEMIDE INJ/PF 20 MG/2 ML SDV IV SCH (10:48)
[2019-01-29] MEDS: METOPROLOL SUCCINATE 25 MG TAB.SR.24H PO SCH (10:48)
[2019-01-29] MEDS: DOCUSATE SODIUM 100 MG CAPSULE PO SCH (10:48)
[2019-01-29] MEDS: ENOXAPARIN SODIUM INJ 40 MG/0.4 ML DISP.SYRIN SUBCUT SCH (10:49)
[2019-01-29] MEDS: TIOTROPIUM BROMIDE DPI 5 CAP/KIT (18 MCG/CAP) IH SCH (10:49)
[2019-01-29] MEDS: SALMETEROL XINAFOATE DISKUS 50 MCG/1 DOSE 28 DOSE IH SCH (10:50)
[2019-01-29] MEDS: CEFEPIME 1 GM/D5W RTU 1 GM/50 ML RTUPB IV SCH ×2 (10:50→11:44)
[2019-01-29] MEDS: POLYETHYLENE GLYCOL 3350 POWDER 17 GM/1 PACKET PO SCH (10:50)
[2019-01-29] MEDS: VANCOMYCIN HCL 1,500 MG in DEXTROSE 5%-WATER 250 ML IV SCH (11:44)
[2019-01-29] MEDS ORDERED: ONDANSETRON 4 MG TAB.RAPDIS ONE (12:29)
[2019-01-29 14:36] VITALS: BP 143/63
--- NOTE | 2019-01-31 17:01 | PDOC DISCHARGE SUMMARY ---
General - Admit/Disc Date/PCP Admission Date/Primary Care Provider: 01/26/19 10:53 ELAN ZIMMERMAN, DO Discharge Date: 01/29/19 - Discharge Diagnosis (1) Acute and chronic respiratory failure Is this a current diagnosis for this admission?: Yes (2) Pneumonia Is this a current diagnosis for this admission?: Yes (3) COPD with exacerbation Is this a current diagnosis for this admission?: Yes (4) CHF (congestive heart failure) Is this a current diagnosis for this admission?: Yes (5) Chronic anemia Is this a current diagnosis for this admission?: Yes (6) Constipation Is this a current diagnosis for this admission?: Yes (7) Coronary artery disease Is this a current diagnosis for this admission?: Yes (8) Diabetes mellitus type 2 in obese Is this a current diagnosis for this admission?: Yes (9) Hyperlipidemia Is this a current diagnosis for this admission?: No (10) Full code status Is this a current diagnosis for this admission?: Yes - Additional Information Resuscitation Status: Do Not Resuscitate Discharge Diet: Diabetic Discharge Activity: Activity As Tolerated Prescriptions: Levofloxacin [Levaquin] 500 mg PO DAILY 4 Days #4 tablet Pantoprazole Sodium [Protonix] 40 mg PO DAILY 4 Days #4 tablet. Prednisone 50 mg PO DAILY 4 Days #4 tablet Home Medications: Albuterol Sulfate [Proair HFA Inhalation Aerosol 8.5 gm MDI] 2 puff IH Q4HP PRN 01/25/19 Fluticasone/Salmeterol [Advair 250-50 Diskus 14 Dose/Diskus] 1 puff IH Q12 01/25/19 Furosemide [Lasix 20 mg Tablet] 20 mg PO DAILY 01/25/19 Levothyroxine Sodium [Synthroid 0.05 mg Tablet] 0.1 mg PO Q6AM 01/25/19 Sertraline HCl [Zoloft] 25 mg PO DAILY 01/25/19 Levofloxacin [Levaquin] 500 mg PO DAILY 4 Days #4 tablet 01/29/19 Pantoprazole Sodium [Protonix] 40 mg PO DAILY 4 Days #4 tablet. 01/29/19 Prednisone 50 mg PO DAILY 4 Days #4 tablet 01/29/19 History of Present Illness History of Present Illness: TRENTON MCCOY is a 73 year old female past medical history of metastatic lung cancer, CHF, CAD, hypertension, hyperlipidemia, COPD on home O2, hypothyroidism, recurrent UTIs. Last hospitalization 11/29/2018 to 12/18/2018. Was admitted for MARY LOU, COPD exacerbation, UTI, CAD, hypertension. Patient presenting to ED complaining of shortness of breath, nonproductive cough, generalized body aches, Yesterday she went to her PCP was started on prednisone and Levaquin. She has been using her meds along with albuterol inhaler with no significant improvement in her symptoms. Decided to come to ED. Denies any chest pain, fever, nausea, vomiting, diarrhea, constipation, or any urinary symptoms. In the ED she was found to have leukocytosis, hypoxemia, and lactic acidosis. Hospitalist was consulted for admission. Hospital Course Hospital Course: (1) Acute and chronic respiratory failure Significant improvement. Back to baseline. SPO2 WNL on 3 L NS. Has BiPAP at home. Acute respiratory failure with hypercarbia. Likely ue to COPD exacerbation underlying HCAP pneumonia. 01/28/2019. SBP 216036, T-max 97.9, pulse 70s, RR 1624, SPO2 100% 3 L NC. ABG: pH 7.4, PCO2 66.5, PO2 242, FiO2 80%. 01/27/2019. SBP 508380 T-max 98.3, pulse 90s, RR 1824 SPO2 100% 4 L NC. 01/26/2019. SBP 187942, T-max 98.3, RR 1624, HR 020778, SPO2 95% 2 L NC. ABG: pH 7.4, PCO2 61.3, PO2 122.7, FiO2 28%. Received 5 days of IV antibiotics. Received 2 days of cefepime. Received 2 days of IV vancomycin. Received 5 days of IV steroids. Received 3 days of IV levofloxacin Discharged on levofloxacin p.o. for another 4 days and prednisone for another 4 days. 1/4 blood cultures positive for Staphylococcus epidermidis. Possibly contamination. Was continued empiric IV antibiotics, duo nebs, IV steroids, BiPAP, supplemental oxygen, incentive spirometry, flutter valve, repeat blood cultures. Switched to p.o. antibiotics and p.o. steroids on discharge. (2) Pneumonia Likely hospital-acquired as patient has history of recurrent hospitalization. Blood cultures /4 Staphylococcus epidermidis. Possibly contamination. As per #1. (3) COPD with exacerbation On home O2, has home BiPAP. As per #1. Outpatient pulmonology follow-up. (4) CHF (congestive heart failure) Chronic. Does not seem to be exacerbated. Was a started on cardiac diet, fluid restriction, diuretics, STACY, beta-blockers. Restarted home meds on discharge. Outpatient cardiology and PCP follow-up. (5) Chronic anemia Stable. Monitored H&H. Daily CBC. Continue ferrous sulfate. (6) Constipation Chronic. Bowel regimen. Encourage high-fiber diet. (7) Coronary artery disease Denies any anginal pain. Continue antiplatelets, STACY, statins, beta-blockers. (8) Hyperlipidemia Diet and lifestyle modification. Restart statins. (9) Hypothyroidism (acquired) Restarted home meds. Thyroid function tests WNL. (10) Full code status Patient was admitted on the full code but the day prior to discharge I was informed that patient has been admitted under DNR and previous admission. CODE STATUS was changed to DNR. I got a call from her daughter Trenton Rivera from [place] who is the POA stating that her mother has dementia and as her POA she wants her to be full code. CODE STATUS was switched back to full code. Her daughter was informed that as the POA she could rescind DNR and have her back on full code. Physical Exam Vital Signs: Temp Pulse Resp BP Pulse Ox 98.0 F 83 20 143/63 H 100 01/29/19 14:21 01/29/19 14:21 01/29/19 14:21 01/29/19 14:21 01/29/19 14:21 Intake & Output 01/30/19 01/31/19 02/01/19 06:59 06:59 06:59 Intake Total 360 Balance 360 General appearance: PRESENT: no acute distress, obese, well-developed, well- nourished Neck exam: ABSENT: carotid bruit, JVD, lymphadenopathy, thyromegaly Respiratory exam: PRESENT: clear to auscultation jeff. ABSENT: rales, rhonchi, wheezes Cardiovascular exam: PRESENT: RRR. ABSENT: diastolic murmur, rubs, systolic murmur GI/Abdominal exam: PRESENT: normal bowel sounds, soft. ABSENT: distended, guarding, mass, organolmegaly, rebound, tenderness Extremities exam: PRESENT: full ROM. ABSENT: calf tenderness, clubbing, pedal edema Neurological exam: PRESENT: alert, awake, oriented to person, oriented to place, oriented to time, CN II-XII grossly intact. ABSENT: motor sensory deficit Results Laboratory Results: 01/28/19 03:34 01/28/19 03:34 01/25/19 14:50 Blood Blood Culture - Final NO GROWTH IN 5 DAYS 01/25/19 15:15 Blood Blood Culture - Final Staphylococcus Epidermidis 01/25/19 01/25/19 15:10 15:10 Creatine Kinase 21 L CK-MB (CK-2) 0.74 Troponin I 0.014 Impressions: Chest X-Ray 01/25/19 15:49 IMPRESSION: STABLE CHRONIC SCARRING IN THE RIGHT HILUM. NO ACUTE RADIOGRAPHIC FINDING IN THE CHEST. Qualifiers - * PATIENT BEING DISCHARGED WITH ANY OF THE FOLLOWING DIAGNOSIS: No Acute Heart Failure - Is this a Heart Failure Patient?: No
== END 2019-01-29 15:00 | disposition home health service (06) | DRG 193 ==
LOC: ER 13:15 → EH 16:31 → INTOOBSV 16:31 → 3N 21:40 → OBSVTOIN 01-26 10:53
PROVIDERS: ADMIT Internal Medicine; ATTEND Internal Medicine
DX: J18.9 Pneumonia, unspecified organism (principal); J96.22 Acute and chronic respiratory failure with hypercapnia; J44.1 Chronic obstructive pulmonary disease with (acute) exacerbation; C79.31 Secondary malignant neoplasm of brain; I50.32 Chronic diastolic (congestive) heart failure; I11.0 Hypertensive heart disease with heart failure; I25.10 Atherosclerotic heart disease of native coronary artery without angina pectoris; E03.9 Hypothyroidism, unspecified; I48.91 Unspecified atrial fibrillation; D64.9 Anemia, unspecified; K59.00 Constipation, unspecified; Z99.81 Dependence on supplemental oxygen; Z79.51 Long term (current) use of inhaled steroids; Z85.118 Personal history of other malignant neoplasm of bronchus and lung
CPT/HCPCS: 36415; 36600; 71045; 80048; 80053; 82550; 82553; 82803; 82962; 83605; 83735; 84439; 84443; 84481; 84484; 85025; 87040; 87077; 87186; 93005; 93010; 94640; 94660; 99285; G0378; J0692; J1650; J1815; J1940; J1956; J2920; J2930; J3370; J3490; J7030; J7060; J7620; S0119

== ENCOUNTER 2019-02-25 11:46 | Emergency (ER) | payer MEDICARE, OTHER ==
[2019-02-25] MEDS ORDERED: METHYLPREDNISOLONE INJ 40 MG/1 ML SDV IV ONE (12:00)
[2019-02-25] MEDS ORDERED: IPRATROPIUM/ALBUTEROL 0.5-2.5 MG/3 ML AMPUL NEB ONE (12:00)
--- NOTE | 2019-02-25 12:05 | ER Document Report ---
ED General - General Chief Complaint: Shortness Of Breath Stated Complaint: WEAKNESS Time Seen by Provider: 02/25/19 11:59 Primary Care Provider: ELAN ZIMMERMAN DO [NO LOCAL MD] - Follow up as needed Notes: 73-year-old lady with chronic debilitation oxygen dependent, COPD and recent pneumonia presents with worsening shortness of breath cough, wet, gurgly noises. Saturation was 80s on the patient's home dose of 3 L of oxygen per EMS and she had rales bilaterally. Positive increased leg swelling. No fevers. Hot and cold. Full code per daughter. TRAVEL OUTSIDE OF THE [place] IN LAST 30 DAYS: No - Related Data Allergies/Adverse Reactions: azithromycin Allergy (Verified 12/30/18 17:18) cephalexin Allergy (Verified 12/30/18 17:18) Penicillins Allergy (Verified 12/30/18 17:18) amoxicillin [Amoxicillin] Adverse Reaction (Verified 12/30/18 17:18) visual hallucinations erythromycin base [Erythromycin Base] Adverse Reaction (Verified 12/30/18 17:18) visual hallucinations Potassium Clavulanate * [From Augmentin] Adverse Reaction (Verified 12/30/18 17:18) visual hallucinations Past Medical History - Social History Smoking Status: Unknown if Ever Smoked Family History: COPD, Malignancy - Lung cancer Patient has suicidal ideation: No Patient has homicidal ideation: No - Past Medical History Cardiac Medical History: Reports: Hx Atrial Fibrillation, Hx Congestive Heart Failure, Hx Coronary Artery Disease, Hx Heart Attack, Hx Hypertension Denies: Hx DVT, Hx Hypercholesterolemia, Hx Pulmonary Embolism Pulmonary Medical History: Reports: Hx Asthma, Hx Bronchitis, Hx COPD, Hx Pneumonia, Hx Respiratory Failure - Chronic respiratory failure Denies: Hx Sleep Apnea, Hx Tuberculosis Neurological Medical History: Denies: Hx Seizures Endocrine Medical History: Reports: Hx Diabetes Mellitus Type 2, Hx Hypothyroidism. 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 Denies: Hx Cirrhosis, Hx Hepatitis, Hx Ulcer Musculoskeletal Medical History: Reports Hx Arthritis, Reports Hx Gout, Denies Hx Multiple Sclerosis, Reports Hx Musculoskeletal Deformity, Reports Hx Muscu loskeletal Trauma Skin Medical History: Denies Hx Eczema, Denies Hx Psoriasis Psychiatric Medical History: Reports: Hx Dementia, Hx Depression Denies: Hx Bipolar Disorder, Hx Schizophrenia Infectious Medical History: Reports: Hx C-Diff. Denies: Hx Hepatitis Past Surgical History: Reports: Hx Cholecystectomy, Hx Orthopedic Surgery - Foot surgery, Other - cataract bilateral - Immunizations Immunizations up to date: Yes Hx Diphtheria, Pertussis, Tetanus Vaccination: Yes Hx Pneumococcal Vaccination: 08/30/12 Review of Systems - Review of Systems Notes: REVIEW OF SYSTEMS GEN: Denies fever, chills, weight loss ENT: Denies sore throat, nasal discharge, ear pain EYES: Denies blurry vision, eye pain, discharge CV: Denies chest pain, palpitations, worsening edema RESP: Cough shortness of breath GI: Denies abdominal pain, nausea, vomiting, diarrhea MSK: Denies joint pain/swelling, edema, SKIN: Bruising LYMPH: Denies swollen glands/lymph nodes NEURO: Denies headache, focal weakness or numbness, dizziness PSYCH: Denies depression, suicidal or homicidal ideation PHYSICAL EXAMINATION General: No acute distress, well-nourished Head: Atraumatic, normocephalic ENT: Mouth normal, oropharynx moist, no exudates or tonsillar enlargement Eyes: Conjunctiva normal, pupils equal, lids normal Neck: No JVD, supple, no guarding CVS: Normal rate, regular rhythm, no murmurs Resp: Gurgling breath sounds with bilateral rales and tachypnea. Satting 99 on facemask. GI: Distention but no tenderness Ext: 2+ symmetric edema with bruising that appears chronic Back: No CVA or midline TTP Skin: No rash, warm Lymphatic: No lymphadeopathy noted Neuro: Awake, alert. Face symmetric. GCS 15. Physical Exam - Vital signs Vitals: Resp Pulse Ox 20 100 02/25/19 11:51 02/25/19 11:51 Course - Re-evaluation Re-evalutation: 02/25/19 12:08 Patient presents with acute on chronic respiratory failure hypoxic. Likely COPD plus pneumonia although CHF is also a possibility. At this point she does not quite require BiPAP and is doing okay on facemask. Will check x-ray septic work-up BNP, EKG and reassess carefully. 02/25/19 13:41 Patient's work-up is essentially negative. There is no evidence of pneumonia no elevated white count. She got 2 treatments. At 140 I reassessed her and she feels much better. Though she is chronically ill and debilitated on home oxygen I said that I would like to give her a chance to go home given we did not find anything acute. We will check her saturation, simulate home movements with sitting up and transferring on 3 L and see how she feels. 02/26/19 06:26 Patient was reassessed after ADLs in the room, did not desaturate and feels well. I had a lengthy discussion with she and her daughter and they are comfortable going home. Her daughter asked me to check a urinalysis because her urine smells foul that the patient has no dysuria, or fever, and we already know her white count is normal. I explained that this would probably be unnecessary testing and resulted on this antibiotic/arm. They were understanding. Will be discharged and follow-up with primary care. I have discussed with the patient there likely diagnosis, aftercare plan, follow-up plans and my usual and customary return precautions. They verbalized understanding of this. - Vital Signs Vital signs: Temp Pulse Resp BP Pulse Ox 98.2 F 96 19 109/68 100 02/25/19 17:10 02/25/19 17:10 02/25/19 17:10 02/25/19 17:10 02/25/19 17:10 - Laboratory Result Diagrams: 02/25/19 12:40 02/25/19 12:40 Laboratory results interpreted by me: 02/25/19 02/25/19 02/25/19 12:40 12:40 12:40 RBC 2.85 L Hgb 9.4 L Hct 28.4 L MCV 100 H RDW 16.1 H Lymphocytes % 12.1 L Chloride 95 L Carbon Dioxide 41 H* Anion Gap 3 L BUN 35 H Est GFR (Non-Af Amer) 56 L Glucose 116 H NT-Pro-B Natriuret Pep 509 H Total Protein 5.3 L Albumin 3.2 L - Diagnostic Test Radiology reviewed: Image reviewed, Reports reviewed - EKG Interpretation by Me EKG shows normal: Sinus rhythm Rate: Normal Rhythm: NSR Discharge - Discharge Clinical Impression: COPD exacerbation Condition: Good Disposition: HOME, SELF-CARE Prescriptions: RX: Dexamethasone 12 mg PO ONCE PRN #2 tablet PRN Reason: Referrals: ELSIE,ELAN, DO [NO LOCAL MD] - Follow up as needed
--- NOTE | 2019-02-25 12:38 | RADIOLOGY REPORT (SQ) ---
EXAM DESCRIPTION: CHEST SINGLE VIEW COMPLETED DATE/TIME: 02/25/2019 12:16 pm REASON FOR STUDY: pna COMPARISON: 06/18/1970 EXAM PARAMETERS: NUMBER OF VIEWS: One view. TECHNIQUE: Single frontal radiographic view of the chest acquired. RADIATION DOSE: NA LIMITATIONS: None. FINDINGS: LUNGS AND PLEURA: No opacities, masses or pneumothorax. No pleural effusion. MEDIASTINUM AND HILAR STRUCTURES: Chronic scarring in the right hilum. HEART AND VASCULAR STRUCTURES: Heart normal in size. Normal vasculature. BONES: No acute findings. HARDWARE: None in the chest. OTHER: No other significant finding. IMPRESSION: NO ACUTE RADIOGRAPHIC FINDING IN THE CHEST. TECHNICAL DOCUMENTATION: JOB ID: [id number] [employer]- All Rights Reserved Reading location - IP/workstation name: [email or web address]
[2019-02-25 13:02] LABS: ABSOLUTE EOSINOPHILS # (AUTO) 0.1 10^3/uL (0.0-0.6); ABSOLUTE MONOCYTES (AUTO) 0.7 10^3/uL (0.1-1.4); ABSOLUTE NEUT (AUTO) 6.4 10^3/uL (1.7-8.2); BASOPHILS % (AUTO) 0.4 % (0-2); EOSINOPHILS % (AUTO) 1.7 % (0-6); HEMATOCRIT 28.4 % (36.0-47.0); HEMOGLOBIN 9.4 g/dL (12.0-15.5); LYMPHOCYTES % (AUTO) 12.1 % (13-45); MEAN CORPUSCULAR HEMOGLOBIN 33.1 pg (27.0-33.4); MEAN CORPUSCULAR HGB CONC 33.2 g/dL (32.0-36.0); MEAN CORPUSCULAR VOLUME 100 fl (80-97); MONOCYTES % (AUTO) 8.1 % (3-13); PLATELET COUNT 244 10^3/uL (150-450); RED BLOOD COUNT 2.85 10^6/uL (3.72-5.28); RED CELL DISTRIBUTION WIDTH 16.1 % (11.5-14.0); SEGMENTED NEUTROPHILS % (AUTO) 77.7 % (42-78); TOTAL CELLS COUNTED % (AUTO) 100 %; WHITE BLOOD COUNT 8.2 10^3/uL (4.0-10.5)
[2019-02-25 13:11] LABS: INTERNATIONAL RATION (INR) 0.87; PROTHROMBIN TIME 11.8 SEC (11.4-15.4)
[2019-02-25 13:32] LABS: ALANINE AMINOTRANSFERASE 26 U/L (9-52); ALBUMIN 3.2 g/dL (3.5-5.0); ALKALINE PHOSPHATASE 70 U/L (38-126); ASPARTATE AMINO TRANSFERASE 23 U/L (14-36); BILIRUBIN,DIRECT 0.1 mg/dL (0.0-0.4); BILIRUBIN,TOTAL 0.2 mg/dL (0.2-1.3); BLOOD UREA NITROGEN 35 mg/dL (7-20); CHLORIDE 95 mmol/L (98-107); GLUCOSE 116 mg/dL (75-110); TOTAL PROTEIN 5.3 g/dL (6.3-8.2)
[2019-02-25 13:41] LABS: ANION GAP 3 (5-19)
[2019-02-25 13:42] LABS: CARBON DIOXIDE 41 mmol/L (22-30)
--- NOTE | 2019-02-25 14:48 | EKG REPORT ---
SEVERITY:- ABNORMAL ECG - SINUS TACHYCARDIA RBBB AND LAFB : Confirmed by: Susan Mishra MD 25-Feb-2019 14:47:35
[2019-02-25 17:11] VITALS: BP 109/68
== END 2019-02-25 17:11 | disposition home or self-care (01) ==
LOC: ER 11:46
DX: J44.1 Chronic obstructive pulmonary disease with (acute) exacerbation (principal); R06.02 Shortness of breath; R05 Cough; M79.89 Other specified soft tissue disorders; Z99.81 Dependence on supplemental oxygen; I50.9 Heart failure, unspecified; I25.10 Atherosclerotic heart disease of native coronary artery without angina pectoris; I11.0 Hypertensive heart disease with heart failure; E11.9 Type 2 diabetes mellitus without complications
CPT/HCPCS: 94640; 99285; 96374; 36415; 87040; 85025; 85610; 80053; 83605; 83880; 71045; 93005; 93010; J2920; J3490; A9270; J7620

== ENCOUNTER 2019-03-02 12:45 | Inpatient (IN) | payer MEDICARE, OTHER ==
[2019-03-02] MEDS ORDERED: METHYLPREDNISOLONE INJ 125 MG/2 ML SDV IV ONE (13:26)
[2019-03-02] MEDS ORDERED: ASPIRIN 81 MG TABLET, CHEWABLE PO ONE (13:26)
[2019-03-02] MEDS ORDERED: ALBUTEROL SULFATE 0.083% NEB 2.5 MG/3 ML AMPUL NEB ONE ×3 (13:26→17:44)
[2019-03-02] MEDS ORDERED: IPRATROPIUM/ALBUTEROL 0.5-2.5 MG/3 ML AMPUL NEB ONE ×2 (13:26→15:37)
--- NOTE | 2019-03-02 13:29 | ER Document Report ---
ED General - General Stated Complaint: SHORTNESS OF BREATH Time Seen by Provider: 03/02/19 12:52 Primary Care Provider: ARASELI AGUILAR MD [Primary Care Provider] - Follow up as needed Notes: 73-year-old female with a history of COPD and CHF brought in by EMS for shortness of breath and leg swelling. Patient states that she is supposed to take her albuterol nebs 4 times a day but she ran out of them yesterday. Since then she has had increasing cough and increasing shortness of breath. Patient also notes that her legs have been swelling more than usual. Denies any chest pain or fever. Patient was given 1 albuterol and 1 albuterol and Atrovent treatment via EMS. No Solu-Medrol was given. TRAVEL OUTSIDE OF THE [place] IN LAST 30 DAYS: No - Related Data Allergies/Adverse Reactions: azithromycin Allergy (Verified 12/30/18 17:18) cephalexin Allergy (Verified 12/30/18 17:18) Penicillins Allergy (Verified 12/30/18 17:18) amoxicillin [Amoxicillin] Adverse Reaction (Verified 12/30/18 17:18) visual hallucinations erythromycin base [Erythromycin Base] Adverse Reaction (Verified 12/30/18 17:18) visual hallucinations Potassium Clavulanate * [From Augmentin] Adverse Reaction (Verified 12/30/18 17:18) visual hallucinations Past Medical History - General Information source: Patient, Emergency Med Personnel - Social History Smoking Status: Former Smoker Frequency of alcohol use: None Drug Abuse: None Family History: COPD, Malignancy - Lung cancer - Past Medical History Cardiac Medical History: Reports: Hx Atrial Fibrillation, Hx Congestive Heart Failure, Hx Coronary Artery Disease, Hx Heart Attack, Hx Hypertension Denies: Hx DVT, Hx Hypercholesterolemia, Hx Pulmonary Embolism Pulmonary Medical History: Reports: Hx Asthma, Hx Bronchitis, Hx COPD, Hx Pneumonia, Hx Respiratory Failure - Chronic respiratory failure Denies: Hx Sleep Apnea, Hx Tuberculosis Neurological Medical History: Denies: Hx Seizures Endocrine Medical History: Reports: Hx Diabetes Mellitus Type 2, Hx Hypothyroidism. 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 Denies: Hx Cirrhosis, Hx Hepatitis, Hx Ulcer Musculoskeletal Medical History: Reports Hx Arthritis, Reports Hx Gout, Denies Hx Multiple Sclerosis, Reports Hx Musculoskeletal Deformity, Reports Hx Musculo skeletal Trauma Skin Medical History: Denies Hx Eczema, Denies Hx Psoriasis Psychiatric Medical History: Reports: Hx Dementia, Hx Depression Denies: Hx Bipolar Disorder, Hx Schizophrenia Infectious Medical History: Reports: Hx C-Diff. Denies: Hx Hepatitis Past Surgical History: Reports: Hx Cholecystectomy, Hx Orthopedic Surgery - Foot surgery, Other - cataract bilateral - Immunizations Immunizations up to date: Yes Hx Diphtheria, Pertussis, Tetanus Vaccination: Yes Hx Pneumococcal Vaccination: 08/30/12 Review of Systems - Review of Systems Constitutional: No symptoms reported Cardiovascular: denies: Chest pain Respiratory: See HPI Musculoskeletal: See HPI, Leg swelling, Ankle swelling -: Yes All other systems reviewed and negative Physical Exam - Vital signs Vitals: Pulse Ox 100 03/02/19 12:50 - Notes Notes: GENERAL: Alert, interacts well. Appears moderately short of breath. HEAD: Normocephalic, atraumatic EYES: Pupils equal, round and reactive to light, extraocular movements intact. ENT: Oral mucosa moist, tongue midline. NECK: Full range of motion, supple, trachea midline. LUNGS: Appears moderately short of breath, on oxygen 4 L via nasal cannula, pulse ox is 98%, diffuse expiratory wheezing, diffuse inspiratory rales. Productive cough which produces white sputum. HEART: Regular rate and rhythm, no murmurs, gallops, rubs. ABDOMEN: Soft, nontender, nondistended, bowel sounds present in all 4 quadrants. EXTREMITIES: Moves all 4 extremities spontaneously, 2+ pitting edema bilateral lower extremities, radial and dorsalis pedis pulses 2/4 bilaterally. No cyanosis. NEUROLOGICAL: Alert and oriented x3, normal speech, no facial droop. PSYCH: Normal mood, normal affect. SKIN: Warm, Dry, bilateral lower extremity edema. Course - Re-evaluation Re-evalutation: 03/02/19 17:54 CBC shows chronic anemia with hemoglobin 9.6, blood gas shows chronic CO2 retention with a pH of 7.0 and a PCO2 of 61, chemistry support this with a CO2 of 41, troponin negative at 0.024, proBNP mildly elevated at 634 but lower than expected given her edema and crackles. Despite several breathing treatments and Solu-Medrol patient is still quite short of breath and wheezy. Chest x-ray shows no new process. No pulmonary edema. I did attempt multiple ultrasound- guided IVs but was unable to obtain access, they would all flash and then would not flush. Dr. Fernandez is now attempting to gain ultrasound-guided IV access. Discussed the patient with Dr. Buckner who agrees to admit the patient to his service on the IMCU. - Vital Signs Vital signs: Temp Pulse Resp BP Pulse Ox 98.6 F 20 117/68 99 03/02/19 12:54 03/02/19 16:01 03/02/19 16:01 03/02/19 16:01 - Laboratory Result Diagrams: 03/02/19 16:53 03/02/19 16:17 Laboratory results interpreted by me: 03/02/19 03/02/19 03/02/19 15:55 16:17 16:17 RBC Hgb Hct MCV MCH RDW Seg Neutrophils % Lymphocytes % Carbonic Acid 1.85 H ABG pCO2 61.5 H ABG pO2 76.6 L ABG HCO3 37.3 H ABG Total CO2 39.2 H Chloride 96 L Carbon Dioxide 41 H* Anion Gap 1 L Glucose 112 H Direct Bilirubin 0.6 H AST 50 H NT-Pro-B Natriuret Pep 634 H Total Protein 5.8 L Albumin 3.3 L 03/02/19 16:53 RBC 2.87 L Hgb 9.6 L Hct 28.3 L MCV 99 H MCH 33.6 H RDW 15.6 H Seg Neutrophils % 81.0 H Lymphocytes % 9.4 L Carbonic Acid ABG pCO2 ABG pO2 ABG HCO3 ABG Total CO2 Chloride Carbon Dioxide Anion Gap Glucose Direct Bilirubin AST NT-Pro-B Natriuret Pep Total Protein Albumin - EKG Interpretation by Me Additional EKG results interpreted by me: 03/02/19 17:55 EKG shows sinus tachycardia, right bundle branch block, no ST segment elevations or depressions, no significant change from prior EKG on 02/25/2019. Per my interpretation. Discharge - Discharge Clinical Impression: COPD exacerbation, Peripheral edema, O2 dependent chronic respiratory failure Condition: Fair Disposition: ADMITTED INPATIENT Admitting Provider: Kaley (Hospitalist) Unit Admitted: IMCU Referrals: ARASELI AGUILAR MD [Primary Care Provider] - Follow up as needed
[2019-03-02] MEDS ORDERED: FUROSEMIDE INJ/PF 40 MG/4 ML SDV IV ONE ×2 (14:20→21:15)
--- NOTE | 2019-03-02 14:23 | RADIOLOGY REPORT (SQ) ---
EXAM DESCRIPTION: CHEST 2 VIEWS COMPLETED DATE/TIME: 03/02/2019 2:12 pm REASON FOR STUDY: SOB, likely CHF and COPD COMPARISON: 02/25/2019. EXAM PARAMETERS: NUMBER OF VIEWS: two views TECHNIQUE: Digital Frontal and Lateral radiographic views of the chest acquired. RADIATION DOSE: NA LIMITATIONS: none FINDINGS: LUNGS AND PLEURA: No opacities, masses or pneumothorax. No pleural effusion. MEDIASTINUM AND HILAR STRUCTURES: Chronic right hilar density. HEART AND VASCULAR STRUCTURES: Heart normal size. No evidence for failure. BONES: No acute findings. HARDWARE: None in the chest. OTHER: No other significant finding. IMPRESSION: CHRONIC RIGHT HILAR DENSITY. NO ACUTE RADIOGRAPHIC FINDING IN THE CHEST. TECHNICAL DOCUMENTATION: JOB ID: [id number] [employer]- All Rights Reserved Reading location - IP/workstation name: [email or web address]
[2019-03-02] MEDS ORDERED: ASPIRIN 81 MG TABLET, CHEWABLE ONE (15:38)
[2019-03-02] MEDS ORDERED: METHYLPREDNISOLONE INJ 125 MG/2 ML SDV ONE (15:38)
[2019-03-02 16:08] LABS: ARTERIAL BLOOD BASE EXCESS 10.4 mmol/L; ARTERIAL BLOOD H2CO3 1.85 mmol/L (1.05-1.35); ARTERIAL BLOOD HCO3 37.3 mmol/L (20-24); ARTERIAL BLOOD PCO2 61.5 mmHg (35-45); ARTERIAL BLOOD PO2 76.6 mmHg (80-100); ARTERIAL BLOOD TOTAL CO2 39.2 mmol/L (21-25)
[2019-03-02 16:09] LABS: ARTERIAL BLOOD FIO2 1L
[2019-03-02 16:42] LABS: ALBUMIN 3.3 g/dL (3.5-5.0); ALKALINE PHOSPHATASE 39 U/L (38-126); ASPARTATE AMINO TRANSFERASE 50 U/L (14-36); BILIRUBIN,DIRECT 0.6 mg/dL (0.0-0.4); BILIRUBIN,TOTAL 0.9 mg/dL (0.2-1.3); BLOOD UREA NITROGEN 18 mg/dL (7-20); CALCIUM 8.8 mg/dL (8.4-10.2); CHLORIDE 96 mmol/L (98-107); CREATINE KINASE 37 U/L (30-135); GLUCOSE 112 mg/dL (75-110); POTASSIUM 4.8 mmol/L (3.6-5.0); TOTAL PROTEIN 5.8 g/dL (6.3-8.2)
[2019-03-02 16:53] LABS: ANION GAP 1 (5-19)
[2019-03-02 16:54] LABS: CREATINE KINASE MB 1.27 ng/mL (<4.55); TROPONIN I 0.024 ng/mL
[2019-03-02 16:55] LABS: CARBON DIOXIDE 41 mmol/L (22-30)
[2019-03-02 17:11] LABS: ABSOLUTE BASOPHILS # (AUTO) 0.1 10^3/uL (0.0-0.2); ABSOLUTE EOSINOPHILS # (AUTO) 0.1 10^3/uL (0.0-0.6); ABSOLUTE LYMPHOCYTES (AUTO) 0.8 10^3/uL (0.5-4.7); ABSOLUTE MONOCYTES (AUTO) 0.7 10^3/uL (0.1-1.4); ABSOLUTE NEUT (AUTO) 7.1 10^3/uL (1.7-8.2); BASOPHILS % (AUTO) 0.6 % (0-2); EOSINOPHILS % (AUTO) 1.2 % (0-6); HEMATOCRIT 28.3 % (36.0-47.0); HEMOGLOBIN 9.6 g/dL (12.0-15.5); LYMPHOCYTES % (AUTO) 9.4 % (13-45); MEAN CORPUSCULAR HEMOGLOBIN 33.6 pg (27.0-33.4); MEAN CORPUSCULAR VOLUME 99 fl (80-97); MONOCYTES % (AUTO) 7.8 % (3-13); PLATELET COUNT 190 10^3/uL (150-450); RED BLOOD COUNT 2.87 10^6/uL (3.72-5.28); RED CELL DISTRIBUTION WIDTH 15.6 % (11.5-14.0); TOTAL CELLS COUNTED % (AUTO) 100 %; WHITE BLOOD COUNT 8.8 10^3/uL (4.0-10.5)
--- NOTE | 2019-03-02 18:18 | PDOC H&P ---
History of Present Illness Admission Date/PCP: ARASELI AGUILAR MD History of Present Illness: TRENTON MCCOY is a 73 year old female patient with multiple and complex medical problems including A. fib, diabetes mellitus hypothyroidism, diastolic CHF, hypertension, coronary 3 disease, chronic respiratory failure O2 dependent 20/02 due to COPD, dementia and history of lung and brain CA presented with chief complaint of shortness of breath. Patient reported that she ran out of her albuterol metered-dose inhaler so she started to have worsening of her underlying shortness of breath. She denies fever, chills, chest pain, palpitation or diaphoresis. She does not have any nausea vomiting or abdominal pain. Her initial blood work is unremarkable except for hemoglobin of 9.6 which is not new. Her ABG shows pH of 7.4 PCO2 of 61 and PO2 of 76. Past Medical History Cardiac Medical History: Reports: Atrial Fibrillation, Congestive Heart Failure, Coronary Artery Disease, Myocardial Infarction, Hypertension Denies: DVT, Hyperlipidema, Pulmonary Embolism Pulmonary Medical History: Reports: Asthma, Bronchitis, Chronic Obstructive Pulmonary Disease (COPD), Pneumonia, Respiratory Failure - Chronic respiratory failure Denies: Sleep Apnea, Tuberculosis Neurological Medical History: Denies: Seizures Endocrine Medical History: Reports: Diabetes Mellitus Type 2, Hypothyroidism Denies: Diabetes Mellitus Type 1, Hyperthyroidism Renal/ Medical History: Denies: End Stage Renal Disease Malignancy Medical History: Reports: Brain Cancer - Lung cancer with brain metastases, 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 GI Medical History: Reports: Gastroesophageal Reflux Disease Denies: Cirrhosis, Hepatitis Musculoskeltal Medical History: Reports: Arthritis, Gout Skin Medical History: Denies: Eczema, Psoriasis Psychiatric Medical History: Reports: Dementia, Depression Denies: Bipolar Disorder Hematology: Reports: Anemia, Bleeding Tendencies Infectious Medical History: Reports: Clostridium Difficile Past Surgical History Past Surgical History: Reports: Cholecystectomy, Orthopedic Surgery - Foot surgery, Other - cataract bilateral Social History Smoking Status: Former Smoker Frequency of Alcohol Use: None Hx Recreational Drug Use: No Drugs: None Hx Prescription Drug Abuse: No - Advance Directive Resuscitation Status: Full Code Family History Family History: COPD, Malignancy - Lung cancer Parental Family History Reviewed: Yes Children Family History Reviewed: Yes Sibling(s) Family History Reviewed.: Yes Medication/Allergy Home Medications: Albuterol Sulfate [Proair HFA Inhalation Aerosol 8.5 gm MDI] 2 puff IH Q6HP PRN 02/08/19 Fexofenadine HCl [Jailene Allergy] 180 mg PO DAILYP PRN 02/08/19 Fluticasone/Salmeterol [Advair 250-50 Diskus 14 Dose/Diskus] 1 puff IH Q12 02/08/19 Hydroxyzine HCl [Atarax 25 mg Tablet] 25 mg PO HSP PRN 02/08/19 Levothyroxine Sodium [Synthroid 0.05 mg Tablet] 0.1 mg PO Q6AM 02/08/19 Potassium Chloride [Klor-Con M10] 10 meq PO DAILY 02/08/19 Sertraline HCl [Zoloft] 25 mg PO DAILY 02/08/19 Tiotropium [place] [Spiriva Handihaler 5 Cap/Kit (18 Mcg/Cap)] 1 puff IH DAILY 02/08/19 Diltiazem HCl [Cardizem 30 mg Tablet] 30 mg PO Q8 #90 tablet 02/12/19 Prednisone [Deltasone 20 mg Tablet] 20 mg PO BID 5 Days #10 tablet 02/12/19 Budesonide/Formoterol Fumarate [Symbicort Hfa 160-4.5 Mcg Inhaler 6 gm] 2 puff IH Q12 03/02/19 Furosemide [Lasix 20 mg Tablet] 20 mg PO QAM 03/02/19 Ibuprofen [Motrin 800 mg Tablet] 800 mg PO Q8HP PRN 03/02/19 Allergies/Adverse Reactions: azithromycin Allergy (Verified 12/30/18 17:18) cephalexin Allergy (Verified 12/30/18 17:18) Penicillins Allergy (Verified 12/30/18 17:18) amoxicillin [Amoxicillin] Adverse Reaction (Verified 12/30/18 17:18) visual hallucinations erythromycin base [Erythromycin Base] Adverse Reaction (Verified 12/30/18 17:18) visual hallucinations Potassium Clavulanate * [From Augmentin] Adverse Reaction (Verified 12/30/18 17:18) visual hallucinations Review of Systems Constitutional: ABSENT: chills, fever(s), headache(s), weight gain, weight loss Eyes: ABSENT: visual disturbances Ears: ABSENT: hearing changes Cardiovascular: ABSENT: chest pain, dyspnea on exertion, edema, orthropnea, palpitations Respiratory: PRESENT: cough, dyspnea Gastrointestinal: ABSENT: abdominal pain, constipation, diarrhea, hematemesis, hematochezia, nausea, vomiting Genitourinary: ABSENT: dysuria, hematuria Musculoskeletal: PRESENT: other - Leg swelling Integumentary: ABSENT: rash, wounds Neurological: ABSENT: abnormal gait, abnormal speech, confusion, dizziness, focal weakness, syncope Psychiatric: ABSENT: anxiety, depression, homidical ideation, suicidal ideation Endocrine: ABSENT: cold intolerance, heat intolerance, polydipsia, polyuria Hematologic/Lymphatic: ABSENT: easy bleeding, easy bruising Physical Exam Vital Signs: Temp Pulse Resp BP Pulse Ox 98.6 F 20 117/68 99 03/02/19 12:54 03/02/19 16:01 03/02/19 16:01 03/02/19 16:01 Intake & Output 03/01/19 03/02/19 03/03/19 06:59 06:59 06:59 Weight 87 kg General appearance: PRESENT: severe distress Head exam: PRESENT: atraumatic Eye exam: PRESENT: conjunctiva pink Neck exam: ABSENT: carotid bruit, JVD, lymphadenopathy, thyromegaly Respiratory exam: PRESENT: decreased breath sounds, wheezes Cardiovascular exam: PRESENT: irregular rhythm GI/Abdominal exam: PRESENT: normal bowel sounds, soft. ABSENT: distended, guarding, mass, organolmegaly, rebound, tenderness Extremities exam: PRESENT: +2 edema Neurological exam: PRESENT: alert, awake, oriented to person, oriented to place, oriented to time, oriented to situation Results Laboratory Results: 03/02/19 16:53 03/02/19 16:17 03/02/19 03/02/19 03/02/19 15:55 16:17 16:17 WBC Cancelled RBC Cancelled Hgb Cancelled Hct Cancelled MCV Cancelled MCH Cancelled MCHC Cancelled RDW Cancelled Plt Count Cancelled Seg Neutrophils % Cancelled Lymphocytes % Cancelled Monocytes % Cancelled Eosinophils % Cancelled Basophils % Cancelled Absolute Neutrophils Cancelled Absolute Lymphocytes Cancelled Absolute Monocytes Cancelled Absolute Eosinophils Cancelled Absolute Basophils Cancelled Carbonic Acid 1.85 H HCO3/H2CO3 Ratio 20:1 ABG pH 7.40 ABG pCO2 61.5 H ABG pO2 76.6 L ABG HCO3 37.3 H ABG O2 Saturation 95.0 ABG Base Excess 10.4 FiO2 1L Sodium 137.8 Potassium 4.8 Chloride 96 L Carbon Dioxide 41 H* Anion Gap 1 L BUN 18 Creatinine 0.85 Est GFR ( Amer) > 60 Est GFR (Non-Af Amer) > 60 Glucose 112 H Calcium 8.8 Total Bilirubin 0.9 AST 50 H Alkaline Phosphatase 39 Total Protein 5.8 L Albumin 3.3 L 03/02/19 16:53 WBC 8.8 RBC 2.87 L Hgb 9.6 L Hct 28.3 L MCV 99 H MCH 33.6 H MCHC 34.0 RDW 15.6 H Plt Count 190 Seg Neutrophils % 81.0 H Lymphocytes % 9.4 L Monocytes % 7.8 Eosinophils % 1.2 Basophils % 0.6 Absolute Neutrophils 7.1 Absolute Lymphocytes 0.8 Absolute Monocytes 0.7 Absolute Eosinophils 0.1 Absolute Basophils 0.1 Carbonic Acid HCO3/H2CO3 Ratio ABG pH ABG pCO2 ABG pO2 ABG HCO3 ABG O2 Saturation ABG Base Excess FiO2 Sodium Potassium Chloride Carbon Dioxide Anion Gap BUN Creatinine Est GFR ( Amer) Est GFR (Non-Af Amer) Glucose Calcium Total Bilirubin AST Alkaline Phosphatase Total Protein Albumin 03/02/19 03/02/19 16:17 16:17 Creatine Kinase 37 CK-MB (CK-2) 1.27 Troponin I 0.024 NT-Pro-B Natriuret Pep 634 H Impressions: Chest X-Ray 03/02/19 13:26 IMPRESSION: CHRONIC RIGHT HILAR DENSITY. NO ACUTE RADIOGRAPHIC FINDING IN THE CHEST. Assessment and Plan - Diagnosis (1) Acute and chronic respiratory failure with hypercapnia Is this a current diagnosis for this admission?: Yes Plan: It has been started on supplemental oxygen, bronchodilator, Solu-Medrol. We will put her on PRN BiPAP also. (2) COPD (chronic obstructive pulmonary disease) Qualifiers: COPD type: COPD with acute exacerbation Qualified Code(s): J44.1 - Chronic obstructive pulmonary disease with (acute) exacerbation Is this a current diagnosis for this admission?: Yes Plan: As #1. (3) Type 2 diabetes mellitus Is this a current diagnosis for this admission?: Yes Plan: We will start her on sliding scale and continue her home medication. (4) Acute on chronic diastolic CHF (congestive heart failure) Is this a current diagnosis for this admission?: Yes Plan: We will gently diurese her. We will continue also her cardiac medications. (5) Coronary artery disease Is this a current diagnosis for this admission?: Yes Plan: No anginal symptoms (6) Hypothyroidism Qualifiers: Hypothyroidism type: acquired Qualified Code(s): E03.9 - Hypothyroidism, unspecified Is this a current diagnosis for this admission?: Yes Plan: Continue with her Synthroid - Inpatient Certification Medical Necessity: Need Close Monitoring Due to Risk of Patient Decompensation
[2019-03-02] MEDS ORDERED: DEXTROSE 50%-WATER 25 GM/50 ML DISP.SYRIN IV PRN ×2 (18:24)
[2019-03-02] MEDS ORDERED: GLUCAGON,HUMAN RECOMB 1 MG INJ IM PRN (18:24)
[2019-03-02] MEDS ORDERED: DEXTROSE 40% GEL 15 GM TUBE PO PRN ×2 (18:24)
[2019-03-02] MEDS ORDERED: TIOTROPIUM BROMIDE DPI 5 CAP/KIT (18 MCG/CAP) IH SCH (18:30)
[2019-03-02] MEDS ORDERED: ENOXAPARIN SODIUM INJ 40 MG/0.4 ML DISP.SYRIN SUBCUT ONE ×2 (19:45→21:15)
[2019-03-02] MEDS ORDERED: TIOTROPIUM BROMIDE DPI 5 CAP/KIT (18 MCG/CAP) IH ONE ×2 (19:45→21:31)
[2019-03-02] MEDS: LEVALBUTEROL HCL NEB 0.63 MG/3 ML AMPUL NEB SCH ×2 (21:10→23:54)
[2019-03-02] MEDS: INSULIN LISPRO 100 UNIT/ML 3 ML VIAL SUBCUT SCH (21:17)
[2019-03-02] MEDS: METHYLPREDNISOLONE INJ 40 MG/1 ML SDV IV SCH (21:18)
[2019-03-02] MEDS: FAMOTIDINE 20 MG TABLET PO SCH (21:19)
--- NOTE | 2019-03-03 01:55 | EKG REPORT ---
SEVERITY:- ABNORMAL ECG - SINUS TACHYCARDIA RIGHT BUNDLE BRANCH BLOCK : Confirmed by: Susan Mishra MD 03-Mar-2019 01:54:19
[2019-03-03] MEDS: LEVALBUTEROL HCL NEB 0.63 MG/3 ML AMPUL NEB SCH ×6 (03:47→23:46)
[2019-03-03 04:49] LABS: HEMATOCRIT 29.6 % (36.0-47.0); HEMOGLOBIN 9.9 g/dL (12.0-15.5); MEAN CORPUSCULAR HEMOGLOBIN 32.8 pg (27.0-33.4); MEAN CORPUSCULAR HGB CONC 33.5 g/dL (32.0-36.0); MEAN CORPUSCULAR VOLUME 98 fl (80-97); PLATELET COUNT 185 10^3/uL (150-450); RED BLOOD COUNT 3.01 10^6/uL (3.72-5.28); RED CELL DISTRIBUTION WIDTH 15.4 % (11.5-14.0); WHITE BLOOD COUNT 8.6 10^3/uL (4.0-10.5)
[2019-03-03 05:07] LABS: ABSOLUTE LYMPHOCYTES# (MANUAL) 0.2 10^3/uL (0.5-4.7); BAND NEUTROPHILS % (MANUAL) 5 % (3-5); BASOPHILS % (MANUAL) 0 % (0-2); EOSINOPHILS % (MANUAL) 0 % (0-6); LYMPHOCYTES % (MANUAL) 2 % (13-45); MONOCYTES % (MANUAL) 0 % (3-13); PLATELET COMMENT ADEQUATE; SEGMENTED NEUTROPHILS % (MAN) 93 % (42-78); TOTAL CELLS COUNTED 100
[2019-03-03 05:09] LABS: ANISOCYTOSIS 1+; POIKILOCYTOSIS SLIGHT; POLYCHROMASIA SLIGHT; TOXIC GRANULATION SLIGHT
[2019-03-03 05:10] LABS: STOMATOCYTES 1+; TEAR DROP CELLS 1+
[2019-03-03 05:12] LABS: ANION GAP 5 (5-19); BLOOD UREA NITROGEN 20 mg/dL (7-20); CALCIUM 8.6 mg/dL (8.4-10.2); CARBON DIOXIDE 39 mmol/L (22-30); CHLORIDE 96 mmol/L (98-107); GLUCOSE 222 mg/dL (75-110); POTASSIUM 4.4 mmol/L (3.6-5.0)
[2019-03-03] MEDS: METHYLPREDNISOLONE INJ 40 MG/1 ML SDV IV SCH ×3 (05:13→21:22)
[2019-03-03] MEDS ORDERED: (PENDING PHARMACY ID) (Hydroxyzine Hcl [Atarax 25 Mg Tablet] 25 MG) PO PRN (07:32)
[2019-03-03] MEDS ORDERED: (PENDING PHARMACY ID) (Fexofenadine Hcl [Allegra Allergy] 180 MG) PO PRN (07:32)
[2019-03-03] MEDS ORDERED: FUROSEMIDE INJ/PF 40 MG/4 ML SDV IV ONE (07:36)
[2019-03-03] MEDS: INSULIN LISPRO 100 UNIT/ML 3 ML VIAL SUBCUT SCH ×4 (08:07→21:22)
[2019-03-03] MEDS ORDERED: LORATADINE 10 MG TABLET PO PRN (08:28)
[2019-03-03] MEDS ORDERED: HYDROXYZINE PAMOATE 25 MG CAPSULE PO PRN (08:30)
[2019-03-03] MEDS: FAMOTIDINE 20 MG TABLET PO SCH ×2 (09:12→21:22)
[2019-03-03] MEDS: SERTRALINE HCL 50 MG TABLET PO SCH (09:12)
[2019-03-03] MEDS: POTASSIUM CHLORIDE 10 MEQ CAPSULE.ER PO SCH (09:12)
[2019-03-03] MEDS: ENOXAPARIN SODIUM INJ 40 MG/0.4 ML DISP.SYRIN SUBCUT SCH (09:13)
[2019-03-03] MEDS: TIOTROPIUM BROMIDE DPI 5 CAP/KIT (18 MCG/CAP) IH SCH (09:21)
[2019-03-03] MEDS ORDERED: (PENDING PHARMACY ID) (Potassium Chloride [Klor-Con M10] 10 MEQ) PO SCH (10:00)
[2019-03-03] MEDS ORDERED: (PENDING PHARMACY ID) (Fluticasone/Salmeterol 1 PUFF) IH SCH (10:00)
[2019-03-03] MEDS ORDERED: (PENDING PHARMACY ID) (Sertraline Hcl [Zoloft] 25 MG) PO SCH (10:00)
--- NOTE | 2019-03-03 10:58 | PDOC PROGRESS REPORT ---
Subjective Progress Note for:: 03/03/19 Subjective:: TRENTON MCCOY is a 73 year old female patient with multiple and complex medical problems including A. fib, diabetes mellitus hypothyroidism, diastolic CHF, hypertension, coronary 3 disease, chronic respiratory failure O2 dependent 20/02 due to COPD, dementia and history of lung and brain CA presented with chief complaint of shortness of breath. Patient reported that she ran out of her albuterol metered-dose inhaler so she started to have worsening of her underlying shortness of breath. She denies fever, chills, chest pain, palpitation or diaphoresis. She does not have any nausea vomiting or abdominal pain. Her initial blood work is unremarkable except for hemoglobin of 9.6 which is not new. Her ABG shows pH of 7.4 PCO2 of 61 and PO2 of 76. 03/03/2019: Patient seen propped up in bed. Patient reports this her shortness of breath is relatively improved. Patient has underlying chronic respiratory failure due to O2 dependent COPD. Her medication reviewed and reconciled. Blood work and vital signs are within normal limits. Reason For Visit: ACUTE ON CHRONIC HYPOXEMIC HYPOXEMIC HYPERCARBIC Physical Exam Vital Signs: Temp Pulse Resp BP Pulse Ox 98.1 F 111 H 20 137/77 H 99 03/03/19 07:58 03/03/19 08:43 03/03/19 08:43 03/03/19 07:58 03/03/19 08:43 Intake & Output 03/02/19 03/03/19 03/04/19 06:59 06:59 06:59 Output Total 2250 Balance -2250 Weight 86.9 kg General appearance: PRESENT: mild distress Head exam: PRESENT: atraumatic Eye exam: PRESENT: conjunctiva pink Neck exam: ABSENT: carotid bruit, JVD, lymphadenopathy, thyromegaly Respiratory exam: PRESENT: decreased breath sounds, wheezes Cardiovascular exam: PRESENT: irregular rhythm GI/Abdominal exam: PRESENT: ascites Neurological exam: PRESENT: alert, awake Results Laboratory Results: 03/03/19 04:06 03/03/19 04:06 03/02/19 03/02/19 03/02/19 15:55 16:17 16:17 WBC Cancelled RBC Cancelled Hgb Cancelled Hct Cancelled MCV Cancelled MCH Cancelled MCHC Cancelled RDW Cancelled Plt Count Cancelled Seg Neutrophils % Cancelled Lymphocytes % Cancelled Monocytes % Cancelled Eosinophils % Cancelled Basophils % Cancelled Absolute Neutrophils Cancelled Absolute Lymphocytes Cancelled Absolute Monocytes Cancelled Absolute Eosinophils Cancelled Absolute Basophils Cancelled Carbonic Acid 1.85 H HCO3/H2CO3 Ratio 20:1 ABG pH 7.40 ABG pCO2 61.5 H ABG pO2 76.6 L ABG HCO3 37.3 H ABG O2 Saturation 95.0 ABG Base Excess 10.4 FiO2 1L Sodium 137.8 Potassium 4.8 Chloride 96 L Carbon Dioxide 41 H* Anion Gap 1 L BUN 18 Creatinine 0.85 Est GFR ( Amer) > 60 Est GFR (Non-Af Amer) > 60 Glucose 112 H Calcium 8.8 Total Bilirubin 0.9 AST 50 H Alkaline Phosphatase 39 Total Protein 5.8 L Albumin 3.3 L 03/02/19 03/03/19 03/03/19 16:53 04:06 04:06 WBC 8.8 8.6 RBC 2.87 L 3.01 L Hgb 9.6 L 9.9 L Hct 28.3 L 29.6 L MCV 99 H 98 H MCH 33.6 H 32.8 MCHC 34.0 33.5 RDW 15.6 H 15.4 H Plt Count 190 185 Seg Neutrophils % 81.0 H Not Reportable Lymphocytes % 9.4 L Not Reportable Monocytes % 7.8 Not Reportable Eosinophils % 1.2 Not Reportable Basophils % 0.6 Not Reportable Absolute Neutrophils 7.1 Not Reportable Absolute Lymphocytes 0.8 Not Reportable Absolute Monocytes 0.7 Not Reportable Absolute Eosinophils 0.1 Not Reportable Absolute Basophils 0.1 Not Reportable Carbonic Acid HCO3/H2CO3 Ratio ABG pH ABG pCO2 ABG pO2 ABG HCO3 ABG O2 Saturation ABG Base Excess FiO2 Sodium 139.7 Potassium 4.4 Chloride 96 L Carbon Dioxide 39 H Anion Gap 5 BUN 20 Creatinine 0.97 Est GFR ( Amer) > 60 Est GFR (Non-Af Amer) 56 L Glucose 222 H Calcium 8.6 Total Bilirubin AST Alkaline Phosphatase Total Protein Albumin 03/02/19 03/02/19 03/02/19 16:17 16:17 22:15 Creatine Kinase 37 CK-MB (CK-2) 1.27 Troponin I 0.024 0.030 NT-Pro-B Natriuret Pep 634 H Impressions: Chest X-Ray 03/02/19 13:26 IMPRESSION: CHRONIC RIGHT HILAR DENSITY. NO ACUTE RADIOGRAPHIC FINDING IN THE CHEST. Assessment and Plan - Diagnosis (1) Acute and chronic respiratory failure with hypercapnia Is this a current diagnosis for this admission?: Yes Plan: It has been started on supplemental oxygen, bronchodilator, Solu-Medrol. We will put her on PRN BiPAP also. Her respiratory symptoms are relatively improving. (2) COPD (chronic obstructive pulmonary disease) Qualifiers: COPD type: COPD with acute exacerbation Qualified Code(s): J44.1 - Chronic obstructive pulmonary disease with (acute) exacerbation Is this a current diagnosis for this admission?: Yes Plan: Continue current regimen. (3) Type 2 diabetes mellitus Is this a current diagnosis for this admission?: Yes Plan: We will start her on sliding scale and continue her home medication. (4) Acute on chronic diastolic CHF (congestive heart failure) Is this a current diagnosis for this admission?: Yes Plan: We will gently diurese her. We will continue also her cardiac medications. (5) Coronary artery disease Is this a current diagnosis for this admission?: Yes Plan: No anginal symptoms (6) Hypothyroidism Qualifiers: Hypothyroidism type: acquired Qualified Code(s): E03.9 - Hypothyroidism, unspecified Is this a current diagnosis for this admission?: Yes
[2019-03-03] MEDS: DILTIAZEM HCL 30 MG TABLET PO SCH ×2 (13:06→21:22)
[2019-03-03] MEDS: FLUTICASONE/VILANTEROL 200-25 MCG/DOSE IH SCH ×2 (13:14→21:23)
[2019-03-04] MEDS: LEVALBUTEROL HCL NEB 0.63 MG/3 ML AMPUL NEB SCH ×6 (03:44→23:46)
[2019-03-04] MEDS: DILTIAZEM HCL 30 MG TABLET PO SCH ×3 (05:27→22:11)
[2019-03-04] MEDS: METHYLPREDNISOLONE INJ 40 MG/1 ML SDV IV SCH ×3 (05:28→22:10)
[2019-03-04] MEDS: LEVOTHYROXINE SODIUM 0.05 MG TABLET PO SCH (05:28)
[2019-03-04] MEDS: INSULIN LISPRO 100 UNIT/ML 3 ML VIAL SUBCUT SCH ×4 (08:58→22:13)
[2019-03-04] MEDS: FAMOTIDINE 20 MG TABLET PO SCH ×2 (10:56→22:11)
[2019-03-04] MEDS: FLUTICASONE/VILANTEROL 200-25 MCG/DOSE IH SCH ×2 (10:57→22:11)
[2019-03-04] MEDS: TIOTROPIUM BROMIDE DPI 5 CAP/KIT (18 MCG/CAP) IH SCH (10:57)
[2019-03-04] MEDS: ENOXAPARIN SODIUM INJ 40 MG/0.4 ML DISP.SYRIN SUBCUT SCH (10:57)
[2019-03-04] MEDS: SERTRALINE HCL 50 MG TABLET PO SCH (10:57)
[2019-03-04] MEDS: POTASSIUM CHLORIDE 10 MEQ CAPSULE.ER PO SCH (10:57)
[2019-03-04] MEDS: ACETAMINOPHEN 325 MG TABLET PO PRN ×2 (12:29→19:29)
--- NOTE | 2019-03-04 12:42 | PDOC PROGRESS REPORT ---
Subjective Progress Note for:: 03/04/19 Subjective:: TRENTON MCCOY is a 73 year old female patient with multiple and complex medical problems including A. fib, diabetes mellitus hypothyroidism, diastolic CHF, hypertension, coronary 3 disease, chronic respiratory failure O2 dependent 20/02 due to COPD, dementia and history of lung and brain CA presented with chief complaint of shortness of breath. Patient reported that she ran out of her albuterol metered-dose inhaler so she started to have worsening of her underlying shortness of breath. She denies fever, chills, chest pain, palpitation or diaphoresis. She does not have any nausea vomiting or abdominal pain. Her initial blood work is unremarkable except for hemoglobin of 9.6 which is not new. Her ABG shows pH of 7.4 PCO2 of 61 and PO2 of 76. 03/03/2019: Patient seen propped up in bed. Patient reports this her shortness of breath is relatively improved. Patient has underlying chronic respiratory failure due to O2 dependent COPD. Her medication reviewed and reconciled. Blood work and vital signs are within normal limits. 03/04/2019: Patient seen propped up in bed and enjoying her breakfast. Patient is still in mild to moderate respiratory distress with audible wheezing. Vital signs and blood works are unremarkable. I will continue the current management. Potential discharge in the next 24 to 48 hours if she remains stable.. Reason For Visit: ACUTE ON CHRONIC HYPOXEMIC HYPOXEMIC HYPERCARBIC Physical Exam Vital Signs: Temp Pulse Resp BP Pulse Ox 97.4 F 99 18 123/86 H 99 03/04/19 03:19 03/04/19 11:42 03/04/19 11:42 03/04/19 03:19 03/04/19 11:42 Intake & Output 03/03/19 03/04/19 03/05/19 06:59 06:59 06:59 Intake Total 880 Output Total 2250 1000 Balance -2250 -120 Weight 86.9 kg 86.2 kg General appearance: PRESENT: obese, other - Mild to moderate respiratory distress Eye exam: PRESENT: conjunctiva pink Neck exam: ABSENT: carotid bruit, JVD, lymphadenopathy, thyromegaly Respiratory exam: PRESENT: decreased breath sounds, wheezes Cardiovascular exam: PRESENT: irregular rhythm Vascular exam: PRESENT: normal capillary refill Neurological exam: PRESENT: alert, awake Results Laboratory Results: 03/03/19 04:06 03/03/19 04:06 03/02/19 03/02/19 03/02/19 16:17 16:17 22:15 Creatine Kinase 37 CK-MB (CK-2) 1.27 Troponin I 0.024 0.030 NT-Pro-B Natriuret Pep 634 H Impressions: Chest X-Ray 03/02/19 13:26 IMPRESSION: CHRONIC RIGHT HILAR DENSITY. NO ACUTE RADIOGRAPHIC FINDING IN THE CHEST. Assessment and Plan - Diagnosis (1) Acute and chronic respiratory failure with hypercapnia Is this a current diagnosis for this admission?: Yes Plan: It has been started on supplemental oxygen, bronchodilator, Solu-Medrol. We will put her on PRN BiPAP also. Her respiratory symptoms are relatively improving. Continue current regimen. (2) COPD (chronic obstructive pulmonary disease) Qualifiers: COPD type: COPD with acute exacerbation Qualified Code(s): J44.1 - Chronic obstructive pulmonary disease with (acute) exacerbation Is this a current diagnosis for this admission?: Yes Plan: Continue current regimen. (3) Type 2 diabetes mellitus Is this a current diagnosis for this admission?: Yes Plan: We will start her on sliding scale and continue her home medication. (4) Acute on chronic diastolic CHF (congestive heart failure) Is this a current diagnosis for this admission?: Yes Plan: We will gently diurese her. We will continue also her cardiac medications. (5) Coronary artery disease Is this a current diagnosis for this admission?: Yes Plan: No anginal symptoms (6) Hypothyroidism Qualifiers: Hypothyroidism type: acquired Qualified Code(s): E03.9 - Hypothyroidism, unspecified Is this a current diagnosis for this admission?: Yes Plan: Continue with her Synthroid
[2019-03-04] MEDS: TEMAZEPAM 15 MG CAPSULE PO PRN (22:11)
[2019-03-05] MEDS: ALBUTEROL SULFATE HFA (90 MCG/PUFF) 200 PUFF/8.5 GM MDI IH PRN (01:00)
[2019-03-05] MEDS: LEVALBUTEROL HCL NEB 0.63 MG/3 ML AMPUL NEB SCH ×5 (03:54→20:16)
[2019-03-05] MEDS: DILTIAZEM HCL 30 MG TABLET PO SCH ×2 (05:39→14:19)
[2019-03-05] MEDS: LEVOTHYROXINE SODIUM 0.05 MG TABLET PO SCH (05:39)
[2019-03-05] MEDS: METHYLPREDNISOLONE INJ 40 MG/1 ML SDV IV SCH ×3 (05:39→21:09)
[2019-03-05] MEDS: INSULIN LISPRO 100 UNIT/ML 3 ML VIAL SUBCUT SCH ×4 (08:37→21:25)
[2019-03-05] MEDS: SERTRALINE HCL 50 MG TABLET PO SCH (10:39)
[2019-03-05] MEDS: POTASSIUM CHLORIDE 10 MEQ CAPSULE.ER PO SCH (10:39)
[2019-03-05] MEDS: ENOXAPARIN SODIUM INJ 40 MG/0.4 ML DISP.SYRIN SUBCUT SCH (10:39)
[2019-03-05] MEDS: TIOTROPIUM BROMIDE DPI 5 CAP/KIT (18 MCG/CAP) IH SCH (10:39)
[2019-03-05] MEDS: FAMOTIDINE 20 MG TABLET PO SCH ×2 (10:39→21:09)
[2019-03-05 10:40] LABS: HEMOGLOBIN 9.6 g/dL (12.0-15.5); MEAN CORPUSCULAR HEMOGLOBIN 32.9 pg (27.0-33.4); MEAN CORPUSCULAR HGB CONC 33.2 g/dL (32.0-36.0); MEAN CORPUSCULAR VOLUME 99 fl (80-97); PLATELET COUNT 224 10^3/uL (150-450); RED BLOOD COUNT 2.92 10^6/uL (3.72-5.28); RED CELL DISTRIBUTION WIDTH 15.2 % (11.5-14.0); WHITE BLOOD COUNT 10.4 10^3/uL (4.0-10.5)
[2019-03-05] MEDS: FLUTICASONE/VILANTEROL 200-25 MCG/DOSE IH SCH ×2 (10:40→21:10)
[2019-03-05 11:00] LABS: ANION GAP 5 (5-19); BLOOD UREA NITROGEN 37 mg/dL (7-20); CALCIUM 8.7 mg/dL (8.4-10.2); CARBON DIOXIDE 39 mmol/L (22-30); CHLORIDE 95 mmol/L (98-107); GLUCOSE 233 mg/dL (75-110); POTASSIUM 3.9 mmol/L (3.6-5.0)
[2019-03-05 11:04] LABS: ABSOLUTE LYMPHOCYTES# (MANUAL) 0.3 10^3/uL (0.5-4.7); ABSOLUTE MONOCYTES # (MANUAL) 0.2 10^3/uL (0.1-1.4); BASOPHILS % (MANUAL) 0 % (0-2); EOSINOPHILS % (MANUAL) 0 % (0-6); LYMPHOCYTES % (MANUAL) 3 % (13-45); MONOCYTES % (MANUAL) 2 % (3-13); SEGMENTED NEUTROPHILS % (MAN) 95 % (42-78); TOTAL CELLS COUNTED 100
[2019-03-05 11:14] LABS: ANISOCYTOSIS SLIGHT; PLATELET COMMENT ADEQUATE
[2019-03-05] MEDS: PROMETHAZINE HCL 25 MG TABLET PO PRN (13:09)
[2019-03-05] MEDS ORDERED: NORMAL SALINE 1000 ML 1,000 ML IV PRN (19:32)
[2019-03-05] MEDS ORDERED: GUAIFENESIN SYRP 200 MG/10 ML UDC PO PRN (19:34)
--- NOTE | 2019-03-05 19:54 | PDOC PROGRESS REPORT ---
Subjective Progress Note for:: 03/05/19 Subjective:: Patient is resting in bed. She has audible congested cough with intermittent wheezing. She is wearing her nasal cannula. Reason For Visit: ACUTE ON CHRONIC HYPOXEMIC HYPOXEMIC HYPERCARBIC Physical Exam Vital Signs: Temp Pulse Resp BP Pulse Ox 97.7 F 91 16 141/73 H 99 03/05/19 03:06 03/05/19 07:00 03/05/19 03:55 03/05/19 03:06 03/05/19 03:55 Intake & Output 03/04/19 03/05/19 03/06/19 06:59 06:59 06:59 Intake Total 880 1080 Output Total 1000 600 Balance -120 480 Weight 86.2 kg 86.3 kg General appearance: PRESENT: mild distress Head exam: PRESENT: atraumatic, normocephalic Eye exam: PRESENT: conjunctiva pale. ABSENT: scleral icterus Ear exam: PRESENT: normal external ear exam Mouth exam: PRESENT: moist, neck supple Respiratory exam: PRESENT: prolonged expiratory phas, symmetrical, wheezes, other - Very congested cough. ABSENT: tachypnea Cardiovascular exam: PRESENT: RRR, other - Difficult to auscultate due to very loud breath sounds GI/Abdominal exam: PRESENT: hypoactive bowel sounds, soft. ABSENT: distended, t enderness Rectal exam: PRESENT: deferred Gentrourinary exam: PRESENT: indwelling catheter - Sidhu catheter with some sediment in the tubing Extremities exam: PRESENT: +1 edema - Bilateral lower extremities. ABSENT: calf tenderness Neurological exam: PRESENT: alert, awake, oriented to person, oriented to place, oriented to situation, CN II-XII grossly intact Psychiatric exam: PRESENT: flat affect. ABSENT: agitated, anxious Focused psych exam: ABSENT: delusional, restlessness Results Laboratory Results: 03/03/19 04:06 03/03/19 04:06 03/02/19 03/02/19 03/02/19 16:17 16:17 22:15 Creatine Kinase 37 CK-MB (CK-2) 1.27 Troponin I 0.024 0.030 NT-Pro-B Natriuret Pep 634 H Impressions: Chest X-Ray 03/02/19 13:26 IMPRESSION: CHRONIC RIGHT HILAR DENSITY. NO ACUTE RADIOGRAPHIC FINDING IN THE CHEST. Assessment and Plan - Diagnosis (1) Acute and chronic respiratory failure with hypercapnia Is this a current diagnosis for this admission?: Yes Plan: The patient is on 2 L nasal cannula. She is complaining of a congested cough. She reports coughing up greenish sputum. I have placed an order for a sputum culture. I have also added guaifenesin to help thin her secretions. Hypercapnia has improved. (2) COPD (chronic obstructive pulmonary disease) Qualifiers: COPD type: COPD with acute exacerbation Qualified Code(s): J44.1 - Chronic obstructive pulmonary disease with (acute) exacerbation Is this a current diagnosis for this admission?: Yes Plan: The patient is on Xopenex scheduled at every 4 hours I will decrease it to every 6 hours. She is also on Brio Ellipta and Spiriva. She has Xopenex available as needed in addition to the scheduled dose. Her home medication list includes Advair and Symbicort. Will need to clarify this with her. She also remains on systemic steroids. (3) Acute on chronic diastolic CHF (congestive heart failure) Is this a current diagnosis for this admission?: Yes Plan: I have increased her diltiazem to 30 mg every 6 hours for combination of borderline tachycardia and her hypertension. I have also added back to her baseline 20 mg of furosemide daily. I have also taken the liberty of starting her on low-dose STACY inhibitor. (4) Type 2 diabetes mellitus Qualifiers: Diabetes mellitus terminal worker insulin use: without terminal worker use Is this a current diagnosis for this admission?: Yes Plan: The patient is currently on sliding scale coverage. The steroids have likely increased her glucose. According to her home medication list she was not on medication prior to this admission. Continue to monitor Accu-Chek glucose readings. (5) Coronary artery disease Is this a current diagnosis for this admission?: Yes Plan: The patient has a history of coronary disease but is not on an STACY inhibitor, aspirin therapy or beta-wan. They may be avoiding beta-blockers because of her COPD. I did start low-dose STACY inhibitor and aspirin 81 mg daily. I will defer statin therapy to her primary care provider. (6) Hypothyroidism Qualifiers: Hypothyroidism type: acquired Qualified Code(s): E03.9 - Hypothyroidism, unspecified Is this a current diagnosis for this admission?: Yes Plan: Continue levothyroxine 100 mcg daily - Time Time Spent with patient: 15-24 minutes Medications reviewed and adjusted accordingly: Yes
[2019-03-05] MEDS: ASPIRIN 81 MG TABLET, ENT COATED PO SCH (21:09)
[2019-03-05] MEDS: TEMAZEPAM 15 MG CAPSULE PO PRN (21:09)
[2019-03-06] MEDS: DILTIAZEM HCL 30 MG TABLET PO SCH ×4 (00:12→17:40)
[2019-03-06] MEDS: LEVALBUTEROL HCL NEB 0.63 MG/3 ML AMPUL NEB SCH ×2 (02:34→08:07)
[2019-03-06 05:13] LABS: BLOOD UREA NITROGEN 41 mg/dL (7-20); CALCIUM 8.5 mg/dL (8.4-10.2); CARBON DIOXIDE 39 mmol/L (22-30); GLUCOSE 201 mg/dL (75-110); POTASSIUM 4.2 mmol/L (3.6-5.0)
[2019-03-06 05:19] LABS: CHLORIDE 98 mmol/L (98-107)
[2019-03-06 05:20] LABS: ANION GAP 4 (5-19)
[2019-03-06] MEDS: METHYLPREDNISOLONE INJ 40 MG/1 ML SDV IV SCH ×3 (05:29→22:10)
[2019-03-06] MEDS: LEVOTHYROXINE SODIUM 0.05 MG TABLET PO SCH (05:30)
[2019-03-06] MEDS ORDERED: FUROSEMIDE 20 MG TABLET PO SCH (08:00)
[2019-03-06] MEDS: INSULIN LISPRO 100 UNIT/ML 3 ML VIAL SUBCUT SCH ×4 (10:34→22:10)
[2019-03-06] MEDS: SERTRALINE HCL 50 MG TABLET PO SCH (10:34)
[2019-03-06] MEDS: FAMOTIDINE 20 MG TABLET PO SCH ×2 (10:34→22:10)
[2019-03-06] MEDS: LISINOPRIL 5 MG TABLET PO SCH (10:35)
[2019-03-06] MEDS: ENOXAPARIN SODIUM INJ 40 MG/0.4 ML DISP.SYRIN SUBCUT SCH (10:36)
[2019-03-06] MEDS: POTASSIUM CHLORIDE 10 MEQ CAPSULE.ER PO SCH (10:36)
[2019-03-06] MEDS: FLUTICASONE/VILANTEROL 200-25 MCG/DOSE IH SCH ×2 (10:38→22:08)
[2019-03-06] MEDS: TIOTROPIUM BROMIDE DPI 5 CAP/KIT (18 MCG/CAP) IH SCH (10:39)
[2019-03-06] MEDS ORDERED: NORMAL SALINE 1000 ML 1,000 ML IV PRN (10:59)
--- NOTE | 2019-03-06 11:07 | PDOC PROGRESS REPORT ---
Subjective Progress Note for:: 03/06/19 Subjective:: The patient appears distressed. She has a congested cough and audible wheezing. Reason For Visit: ACUTE ON CHRONIC HYPOXEMIC HYPOXEMIC HYPERCARBIC Physical Exam Vital Signs: Temp Pulse Resp BP Pulse Ox 98.4 F 88 22 H 153/81 H 100 03/06/19 08:13 03/06/19 08:13 03/06/19 08:13 03/06/19 08:13 03/06/19 08:13 Intake & Output 03/05/19 03/06/19 03/07/19 06:59 06:59 06:59 Intake Total 1080 960 Output Total 600 725 Balance 480 235 Weight 86.3 kg 85.7 kg General appearance: PRESENT: cooperative, mild distress, well-developed Head exam: PRESENT: atraumatic, normocephalic Ear exam: PRESENT: normal external ear exam Mouth exam: PRESENT: moist, tongue midline Respiratory exam: PRESENT: rhonchi - On the right, symmetrical, wheezes - Bilaterally. ABSENT: rales Cardiovascular exam: PRESENT: RRR, +S1, +S2 GI/Abdominal exam: PRESENT: normal bowel sounds, soft. ABSENT: distended, tenderness Rectal exam: PRESENT: deferred Neurological exam: PRESENT: alert, awake, oriented to person, oriented to place, oriented to situation Psychiatric exam: PRESENT: flat affect. ABSENT: agitated, anxious Focused psych exam: ABSENT: delusional, restlessness Results Laboratory Results: 03/05/19 10:25 03/06/19 04:07 03/05/19 03/05/19 03/06/19 10:25 10:25 04:07 WBC 10.4 RBC 2.92 L Hgb 9.6 L Hct 29.0 L MCV 99 H MCH 32.9 MCHC 33.2 RDW 15.2 H Plt Count 224 Sodium 138.8 140.7 Potassium 3.9 4.2 Chloride 95 L 98 Carbon Dioxide 39 H 39 H Anion Gap 5 4 L BUN 37 H 41 H Creatinine 1.19 1.15 Est GFR ( Amer) 54 L 56 L Est GFR (Non-Af Amer) 44 L 46 L Glucose 233 H 201 H Calcium 8.7 8.5 Magnesium 2.3 2.5 H 03/02/19 03/02/19 03/02/19 16:17 16:17 22:15 Creatine Kinase 37 CK-MB (CK-2) 1.27 Troponin I 0.024 0.030 NT-Pro-B Natriuret Pep 634 H Impressions: Chest X-Ray 03/02/19 13:26 IMPRESSION: CHRONIC RIGHT HILAR DENSITY. NO ACUTE RADIOGRAPHIC FINDING IN THE CHEST. Assessment and Plan - Diagnosis (1) Acute and chronic respiratory failure with hypercapnia Is this a current diagnosis for this admission?: Yes Plan: The patient is on 2 L nasal cannula. She is complaining of a congested cough. She reports coughing up greenish sputum. I have placed an order for a sputum culture. I have also added guaifenesin to help thin her secretions. Hypercapnia has improved. 03/06/2019-the patient still has a congested cough. The patient was seen by speech therapy. The patient has significant reflux/regurgitation. Is likely due to an esophageal issue. This does put her at high risk for aspiration. A chest x-ray did not show evidence of aspiration pneumonitis. Her brain atretic peptide was significantly elevated and so I am going to increase her furosemide. I still think she needs free water and so I will change her IV fluids to one half normal saline at 80 mL an hour in an effort to bring down her BUN. Her cre atinine is back in the normal range. (2) COPD (chronic obstructive pulmonary disease) Qualifiers: COPD type: COPD with acute exacerbation Qualified Code(s): J44.1 - Chronic obstructive pulmonary disease with (acute) exacerbation Is this a current diagnosis for this admission?: Yes Plan: The patient is on Xopenex scheduled at every 4 hours I will decrease it to every 6 hours. She is also on Brio Ellipta and Spiriva. She has Xopenex available as needed in addition to the scheduled dose. Her home medication list includes Advair and Symbicort. Will need to clarify this with her. She also remains on systemic steroids. 03/06/2019-because of the current condition I am going to change her regimen. She will receive the higher dose of Xopenex with ipratropium nebulizer treatments every 6 hours. Xopenex is available every 3 hours if needed. I will discontinue the Spiriva at this point. She will continue on the systemic steroids. Some of her respiratory failure at this point could be congestive heart failure. (3) Acute on chronic diastolic CHF (congestive heart failure) Is this a current diagnosis for this admission?: Yes Plan: I have increased her diltiazem to 30 mg every 6 hours for combination of borderline tachycardia and her hypertension. I have also added back to her baseline 20 mg of furosemide daily. I have also taken the liberty of starting her on low-dose STACY inhibitor. 03/06/2019-as noted above her BNP is much higher. I have increased her furosemide. IV fluid will be changed to give the patient more free water. (4) Type 2 diabetes mellitus Qualifiers: Diabetes mellitus senior living insulin use: without senior living use Is this a current diagnosis for this admission?: Yes Plan: The patient is currently on sliding scale coverage. The steroids have likely increased her glucose. According to her home medication list she was not on medication prior to this admission. Continue to monitor Accu-Chek glucose readings. 03/06/2019-going to increase the strength of the sliding scale. I will consider adding metformin or an additional oral agent based on the sliding scale requ irements. I like to see her Accu-Cheks less than 200 consistently with the majority of readings less than 150. (5) Coronary artery disease Is this a current diagnosis for this admission?: Yes Plan: The patient has a history of coronary disease but is not on an STACY inhibitor, aspirin therapy or beta-awn. They may be avoiding beta-blockers because of her COPD. I did start low-dose STACY inhibitor and aspirin 81 mg daily. I will defer statin therapy to her primary care provider. 03/06/2019-continue current regimen. (6) Hypothyroidism Qualifiers: Hypothyroidism type: acquired Qualified Code(s): E03.9 - Hypothyroidism, unspecified Is this a current diagnosis for this admission?: Yes Plan: Continue levothyroxine 100 mcg daily 03/06/2019-continue levothyroxine. (7) GERD (gastroesophageal reflux disease) Qualifiers: Esophagitis presence: esophagitis presence not specified Qualified Code(s): K21.9 - Gastro-esophageal reflux disease without esophagitis Is this a current diagnosis for this admission?: Yes Plan: 03/06/2019-the patient is on a proton pump inhibitor. The patient will need outpatient work-up as it is possible that she has esophageal dysmotility versus stricture from her history of reflux. Speech therapy also suggest consideration of an outpatient modified barium swallow. - Time Time Spent with patient: 25-34 minutes Medications reviewed and adjusted accordingly: Yes Anticipated discharge: Home
--- NOTE | 2019-03-06 13:10 | RADIOLOGY REPORT (SQ) ---
EXAM DESCRIPTION: CHEST SINGLE VIEW COMPLETED DATE/TIME: 03/06/2019 12:53 pm REASON FOR STUDY: Aspiration COMPARISON: 03/02/2019 EXAM PARAMETERS: NUMBER OF VIEWS: One view. TECHNIQUE: Single frontal radiographic view of the chest acquired. RADIATION DOSE: NA LIMITATIONS: None. FINDINGS: LUNGS AND PLEURA: Persistent right hilar opacity, not significantly changed from prior. N o new airspace disease, pleural effusion or pneumothorax. Unchanged blunting of the bilateral costop hrenic angles, likely scarring. MEDIASTINUM AND HILAR STRUCTURES: Unchanged right hilar opacity. HEART AND VASCULAR STRUCTURES: Borderline enlarged cardiac silhouette. Aortic atherosclerosis. BONES: No acute findings. HARDWARE: None in the chest. OTHER: No other significant finding. IMPRESSION: Persistent right hilar opacity, stable from multiple priors. No other evidence of acute cardiopulmonary process TECHNICAL DOCUMENTATION: JOB ID: [id number] [employer]- All Rights Reserved Reading location - IP/workstation name: [email or web address]
[2019-03-06] MEDS: IPRATROPIUM BROMIDE 0.02% NEB 0.5 MG/2.5 ML AMPUL NEB SCH ×2 (13:52→20:33)
[2019-03-06] MEDS: LEVALBUTEROL HCL NEB 1.25 MG/3 ML AMPUL NEB SCH ×2 (13:52→20:33)
[2019-03-06] MEDS: PANTOPRAZOLE SODIUM 40 MG TABLET.DR PO SCH (17:40)
[2019-03-06] MEDS: ASPIRIN 81 MG TABLET, ENT COATED PO SCH (22:10)
[2019-03-07] MEDS: DILTIAZEM HCL 30 MG TABLET PO SCH ×4 (01:02→17:01)
[2019-03-07] MEDS: ALBUTEROL SULFATE HFA (90 MCG/PUFF) 200 PUFF/8.5 GM MDI IH PRN ×2 (01:03→06:33)
[2019-03-07] MEDS: 1/2 NORMAL SALINE 1,000 ML IV PRN ×2 (01:59→14:54)
[2019-03-07] MEDS: LEVALBUTEROL HCL NEB 1.25 MG/3 ML AMPUL NEB SCH ×4 (02:07→20:08)
[2019-03-07] MEDS: IPRATROPIUM BROMIDE 0.02% NEB 0.5 MG/2.5 ML AMPUL NEB SCH ×4 (02:07→20:08)
[2019-03-07 05:28] LABS: HEMATOCRIT 28.9 % (36.0-47.0); HEMOGLOBIN 9.7 g/dL (12.0-15.5); MEAN CORPUSCULAR HGB CONC 33.5 g/dL (32.0-36.0); MEAN CORPUSCULAR VOLUME 98 fl (80-97); PLATELET COUNT 217 10^3/uL (150-450); RED BLOOD COUNT 2.93 10^6/uL (3.72-5.28); RED CELL DISTRIBUTION WIDTH 15.4 % (11.5-14.0); WHITE BLOOD COUNT 8.1 10^3/uL (4.0-10.5)
[2019-03-07] MEDS: METHYLPREDNISOLONE INJ 40 MG/1 ML SDV IV SCH ×3 (05:30→21:08)
[2019-03-07] MEDS: PANTOPRAZOLE SODIUM 40 MG TABLET.DR PO SCH ×2 (05:30→16:56)
[2019-03-07] MEDS: LEVOTHYROXINE SODIUM 0.05 MG TABLET PO SCH (05:30)
[2019-03-07 07:10] LABS: ABSOLUTE LYMPHOCYTES# (MANUAL) 0.1 10^3/uL (0.5-4.7); ABSOLUTE MONOCYTES # (MANUAL) 0.6 10^3/uL (0.1-1.4); BAND NEUTROPHILS % (MANUAL) 3 % (3-5); BASOPHILS % (MANUAL) 0 % (0-2); EOSINOPHILS % (MANUAL) 0 % (0-6); LYMPHOCYTES % (MANUAL) 1 % (13-45); MONOCYTES % (MANUAL) 7 % (3-13); SEGMENTED NEUTROPHILS % (MAN) 89 % (42-78); TOTAL CELLS COUNTED 100
[2019-03-07 07:11] LABS: ANISOCYTOSIS SLIGHT; HYPOCHROMASIA 2+
[2019-03-07 07:25] LABS: PLATELET COMMENT ADEQUATE
[2019-03-07] MEDS ORDERED: FUROSEMIDE 20 MG TABLET PO SCH (08:00)
[2019-03-07] MEDS: FUROSEMIDE 40 MG TABLET PO SCH (08:17)
[2019-03-07] MEDS: INSULIN LISPRO 100 UNIT/ML 3 ML VIAL SUBCUT SCH ×4 (08:24→21:08)
[2019-03-07] MEDS: PROMETHAZINE HCL 25 MG TABLET PO PRN (09:10)
[2019-03-07] MEDS: ENOXAPARIN SODIUM INJ 40 MG/0.4 ML DISP.SYRIN SUBCUT SCH (10:22)
[2019-03-07] MEDS: FLUTICASONE/VILANTEROL 200-25 MCG/DOSE IH SCH ×2 (10:22→21:07)
[2019-03-07] MEDS: FAMOTIDINE 20 MG TABLET PO SCH (10:23)
[2019-03-07] MEDS: LISINOPRIL 5 MG TABLET PO SCH (10:23)
[2019-03-07] MEDS: POTASSIUM CHLORIDE 10 MEQ CAPSULE.ER PO SCH (10:24)
[2019-03-07] MEDS: SERTRALINE HCL 50 MG TABLET PO SCH (10:24)
[2019-03-07 16:40] LABS: ARTERIAL BLOOD BASE EXCESS 10.7 mmol/L; ARTERIAL BLOOD H2CO3 1.81 mmol/L (1.05-1.35); ARTERIAL BLOOD HCO3 37.2 mmol/L (20-24); ARTERIAL BLOOD O2 SATURATION 98.5 % (94-98); ARTERIAL BLOOD PCO2 60.1 mmHg (35-45); ARTERIAL BLOOD PH 7.41 (7.35-7.45); ARTERIAL BLOOD PO2 127.4 mmHg (80-100)
[2019-03-07 16:41] LABS: ARTERIAL BLOOD FIO2 ROOM AIR
[2019-03-07] MEDS ORDERED: ONDANSETRON 4 MG TAB.RAPDIS PO PRN (20:23)
--- NOTE | 2019-03-07 20:36 | PDOC PROGRESS REPORT ---
Subjective Progress Note for:: 03/07/19 Subjective:: Nursing reports that the patient was quite confused this morning. She had received a dose of antiemetic medication and became delirious. Reason For Visit: ACUTE ON CHRONIC HYPOXEMIC HYPOXEMIC HYPERCARBIC Physical Exam Vital Signs: Temp Pulse Resp BP Pulse Ox 98.0 F 94 16 137/62 H 99 03/07/19 11:11 03/07/19 11:11 03/07/19 11:11 03/07/19 11:11 03/07/19 11:11 Intake & Output 03/06/19 03/07/19 03/08/19 06:59 06:59 06:59 Intake Total 960 1000 236 Output Total 725 120 200 Balance 235 880 36 Weight 85.7 kg 85.4 kg General appearance: PRESENT: cooperative, mild distress Head exam: PRESENT: atraumatic, normocephalic Mouth exam: PRESENT: other - Eating a banana. Bits of banana all over her chest. Respiratory exam: PRESENT: rales, symmetrical, wheezes - Faint occasional wheeze. ABSENT: accessory muscle use, rhonchi Cardiovascular exam: PRESENT: RRR, +S1, +S2 GI/Abdominal exam: PRESENT: normal bowel sounds, soft. ABSENT: distended, tenderness Neurological exam: PRESENT: alert, awake, oriented to person, other - She did answer questions appropriately but the questions were somewhat limited.. ABSENT: oriented to place, oriented to situation Psychiatric exam: PRESENT: flat affect. ABSENT: agitated, anxious Focused psych exam: ABSENT: delusional - Does not appear to be delusional at this point Results Laboratory Results: 03/07/19 05:09 03/06/19 04:07 03/07/19 03/07/19 05:09 05:09 WBC 8.1 RBC 2.93 L Hgb 9.7 L Hct 28.9 L MCV 98 H MCH 33.0 MCHC 33.5 RDW 15.4 H Plt Count 217 Seg Neutrophils % Not Reportable Lymphocytes % Not Reportable Monocytes % Not Reportable Eosinophils % Not Reportable Basophils % Not Reportable Absolute Neutrophils Not Reportable Absolute Lymphocytes Not Reportable Absolute Monocytes Not Reportable Absolute Eosinophils Not Reportable Absolute Basophils Not Reportable Magnesium 2.4 H 03/02/19 03/02/19 03/02/19 16:17 16:17 22:15 Creatine Kinase 37 CK-MB (CK-2) 1.27 Troponin I 0.024 0.030 NT-Pro-B Natriuret Pep 634 H 03/06/19 03/07/19 04:07 05:09 Creatine Kinase CK-MB (CK-2) Troponin I NT-Pro-B Natriuret Pep 2340 H 1760 H Impressions: Chest X-Ray 03/06/19 11:10 IMPRESSION: Persistent right hilar opacity, stable from multiple priors. No other evidence of acute cardiopulmonary process Assessment and Plan - Diagnosis (1) Acute and chronic respiratory failure with hypercapnia Is this a current diagnosis for this admission?: Yes Plan: The patient is on 2 L nasal cannula. She is complaining of a congested cough. She reports coughing up greenish sputum. I have placed an order for a sputum culture. I have also added guaifenesin to help thin her secretions. Hypercapnia has improved. 03/06/2019-the patient still has a congested cough. The patient was seen by speech therapy. The patient has significant reflux/regurgitation. Is likely due to an esophageal issue. This does put her at high risk for aspiration. A chest x-ray did not show evidence of aspiration pneumonitis. Her brain atretic peptide was significantly elevated and so I am going to increase her furosemide. I still think she needs free water and so I will change her IV fluids to one half normal saline at 80 mL an hour in an effort to bring down her BUN. Her creatinine is back in the normal range. 03/07/2019-chest x-ray did not show evidence of an infiltrate. She does have the right hilar prominence with her history of lung cancer. No evidence of overt pulmonary edema or pneumonia. Her oxygen saturation levels typically are over 96%. I have encouraged the staff to limit oxygen supplementation to keep her pulse ox less than 95%. (2) COPD (chronic obstructive pulmonary disease) Qualifiers: COPD type: COPD with acute exacerbation Qualified Code(s): J44.1 - Chronic obstructive pulmonary disease with (acute) exacerbation Is this a current diagnosis for this admission?: Yes Plan: The patient is on Xopenex scheduled at every 4 hours I will decrease it to every 6 hours. She is also on Brio Ellipta and Spiriva. She has Xopenex available as needed in addition to the scheduled dose. Her home medication list includes Advair and Symbicort. Will need to clarify this with her. She also remains on systemic steroids. 03/06/2019-because of the current condition I am going to change her regimen. She will receive the higher dose of Xopenex with ipratropium nebulizer treatments every 6 hours. Xopenex is available every 3 hours if needed. I will discontinue the Spiriva at this point. She will continue on the systemic steroids. Some of her respiratory failure at this point could be congestive heart failure. 03/07/2019-I will decrease the systemic steroids partly due to this episode of delirium earlier today. In addition I will add Pulmicort so that she will be on Xopenex and ipratropium every 6 hours and Pulmicort every 12 hours. She has Symbicort and Advair listed as home inhaler therapy. I will try and find out which one she is consistently on. She did mention the red top which certainly could be Symbicort. I would like to get her on a home regimen prior to discharge. Her exam is certainly improved today. (3) Acute on chronic diastolic CHF (congestive heart failure) Is this a current diagnosis for this admission?: Yes Plan: I have increased her diltiazem to 30 mg every 6 hours for combination of borderl ine tachycardia and her hypertension. I have also added back to her baseline 20 mg of furosemide daily. I have also taken the liberty of starting her on low- dose STACY inhibitor. 03/06/2019-as noted above her BNP is much higher. I have increased her furosemide. IV fluid will be changed to give the patient more free water. 03/07/2019-the patient's BNP is slightly improved with increased furosemide. I have decreased the IV fluids and change to half-normal saline to give the patient more free water. I would like to achieve a negative fluid balance again and see her brain atretic peptide decrease as well. From a clinical standpoint her breathing is easier today. (4) Type 2 diabetes mellitus Qualifiers: Diabetes mellitus intermediate insulin use: without intermediate use Is this a current diagnosis for this admission?: Yes Plan: The patient is currently on sliding scale coverage. The steroids have likely increased her glucose. According to her home medication list she was not on medication prior to this admission. Continue to monitor Accu-Chek glucose readings. 03/06/2019-going to increase the strength of the sliding scale. I will consider adding metformin or an additional oral agent based on the sliding scale requirements. I like to see her Accu-Cheks less than 200 consistently with the majority of readings less than 150. 03/07/2019-I have increased the sliding scale to a more aggressive regimen. I will give it another day or 2 before making any other adjustments. She may need an oral agent added. I think decreasing the steroids will also help. (5) Coronary artery disease Is this a current diagnosis for this admission?: Yes Plan: The patient has a history of coronary disease but is not on an STACY inhibitor, a spirin therapy or beta-wan. They may be avoiding beta-blockers because of her COPD. I did start low-dose STACY inhibitor and aspirin 81 mg daily. I will defer statin therapy to her primary care provider. 03/06/2019-continue current regimen. 03/07/2019-no complaints of chest discomfort. Stable on current regimen. (6) Hypothyroidism Qualifiers: Hypothyroidism type: acquired Qualified Code(s): E03.9 - Hypothyroidism, unspecified Is this a current diagnosis for this admission?: Yes Plan: Continue levothyroxine 100 mcg daily 03/06/2019-continue levothyroxine. 03/07/2019-no indication that the thyroid is contributing to the clinical picture therefore continue her current 100 mcg daily dose. (7) GERD (gastroesophageal reflux disease) Qualifiers: Esophagitis presence: esophagitis presence not specified Qualified Code(s): K21.9 - Gastro-esophageal reflux disease without esophagitis Is this a current diagnosis for this admission?: Yes Plan: 03/06/2019-the patient is on a proton pump inhibitor. The patient will need outpatient work-up as it is possible that she has esophageal dysmotility versus stricture from her history of reflux. Speech therapy also suggest consideration of an outpatient modified barium swallow. 03/07/2019-I did discontinue the H2 wan now that the patient is on a proton pump inhibitor. - Time Time Spent with patient: 15-24 minutes Medications reviewed and adjusted accordingly: Yes Anticipated discharge: Home
[2019-03-07] MEDS: ASPIRIN 81 MG TABLET, ENT COATED PO SCH (21:07)
[2019-03-07 21:18] LABS: ARTERIAL BLOOD H2CO3 1.76 mmol/L (1.05-1.35); ARTERIAL BLOOD HCO3 37.1 mmol/L (20-24); ARTERIAL BLOOD O2 SATURATION 95.5 % (94-98); ARTERIAL BLOOD PCO2 58.6 mmHg (35-45); ARTERIAL BLOOD PH 7.42 (7.35-7.45); ARTERIAL BLOOD PO2 78.6 mmHg (80-100); ARTERIAL BLOOD TOTAL CO2 38.9 mmol/L (21-25)
[2019-03-07 21:19] LABS: ARTERIAL BLOOD FIO2 24%
[2019-03-08] MEDS: DILTIAZEM HCL 30 MG TABLET PO SCH ×4 (00:24→18:40)
[2019-03-08] MEDS: LEVALBUTEROL HCL NEB 1.25 MG/3 ML AMPUL NEB SCH ×4 (02:15→20:09)
[2019-03-08] MEDS: IPRATROPIUM BROMIDE 0.02% NEB 0.5 MG/2.5 ML AMPUL NEB SCH ×4 (02:15→20:09)
[2019-03-08] MEDS: LEVOTHYROXINE SODIUM 0.05 MG TABLET PO SCH (05:16)
[2019-03-08] MEDS: PANTOPRAZOLE SODIUM 40 MG TABLET.DR PO SCH ×2 (05:16→16:57)
[2019-03-08 07:07] LABS: ARTERIAL BLOOD BASE EXCESS 5.4 mmol/L; ARTERIAL BLOOD H2CO3 1.54 mmol/L (1.05-1.35); ARTERIAL BLOOD HCO3 31.1 mmol/L (20-24); ARTERIAL BLOOD PCO2 51.2 mmHg (35-45); ARTERIAL BLOOD PO2 110.3 mmHg (80-100); ARTERIAL BLOOD TOTAL CO2 32.6 mmol/L (21-25)
[2019-03-08 07:11] LABS: ARTERIAL BLOOD FIO2 2L
[2019-03-08 07:25] LABS: BLOOD UREA NITROGEN 36 mg/dL (7-20); CALCIUM 7.9 mg/dL (8.4-10.2); GLUCOSE 245 mg/dL (75-110)
[2019-03-08 07:36] LABS: ANION GAP 5 (5-19); CARBON DIOXIDE 36 mmol/L (22-30); CHLORIDE 97 mmol/L (98-107)
[2019-03-08] MEDS: FUROSEMIDE 40 MG TABLET PO SCH (08:19)
[2019-03-08] MEDS: INSULIN LISPRO 100 UNIT/ML 3 ML VIAL SUBCUT SCH ×4 (08:19→21:41)
[2019-03-08] MEDS: BUDESONIDE NEB 0.25 MG/2 ML AMPUL NEB SCH ×2 (08:27→20:10)
[2019-03-08] MEDS: ENOXAPARIN SODIUM INJ 40 MG/0.4 ML DISP.SYRIN SUBCUT SCH (10:22)
[2019-03-08] MEDS: POTASSIUM CHLORIDE 10 MEQ CAPSULE.ER PO SCH (10:22)
[2019-03-08] MEDS: METHYLPREDNISOLONE INJ 40 MG/1 ML SDV IV SCH ×2 (10:22→21:40)
[2019-03-08] MEDS: SERTRALINE HCL 50 MG TABLET PO SCH (10:22)
[2019-03-08] MEDS: FLUTICASONE/VILANTEROL 200-25 MCG/DOSE IH SCH ×2 (10:23→21:49)
[2019-03-08] MEDS: LISINOPRIL 5 MG TABLET PO SCH (10:23)
--- NOTE | 2019-03-08 15:23 | PDOC PROGRESS REPORT ---
Subjective Progress Note for:: 03/08/19 Subjective:: The patient is sleeping quite soundly. Multiple verbal attempts and even checking the patient were ineffective. The nurse did report that the patient has not slept well for the last 2 nights and therefore I will let her sleep. Some of her cognitive issues certainly could be sleep deprivation. Reason For Visit: ACUTE ON CHRONIC HYPOXEMIC HYPOXEMIC HYPERCARBIC Physical Exam Vital Signs: Temp Pulse Resp BP Pulse Ox 98.1 F 97 20 149/75 H 98 03/08/19 11:12 03/08/19 14:09 03/08/19 14:09 03/08/19 11:12 03/08/19 14:09 Intake & Output 03/07/19 03/08/19 03/09/19 06:59 06:59 06:59 Intake Total 1000 1680 50 Output Total 120 200 150 Balance 880 1480 -100 Weight 85.4 kg 86 kg General appearance: PRESENT: other - Sleeping comfortably Head exam: PRESENT: atraumatic, normocephalic Respiratory exam: PRESENT: symmetrical, unlabored, wheezes - Faint expiratory wheeze bilaterally. ABSENT: rales, rhonchi, tachypnea Cardiovascular exam: PRESENT: RRR, +S1, +S2 GI/Abdominal exam: PRESENT: normal bowel sounds, soft. ABSENT: tenderness Neurological exam: ABSENT: awake Results Laboratory Results: 03/07/19 05:09 03/08/19 06:40 03/07/19 03/07/19 03/08/19 11:41 21:00 06:40 Carbonic Acid 1.81 H 1.76 H HCO3/H2CO3 Ratio 20:1 21:1 ABG pH 7.41 7.42 ABG pCO2 60.1 H 58.6 H ABG pO2 127.4 H 78.6 L ABG HCO3 37.2 H 37.1 H ABG O2 Saturation 98.5 H 95.5 ABG Base Excess 10.7 11.0 FiO2 ROOM AIR 24% Sodium 138.4 Potassium 4.0 Chloride 97 L Carbon Dioxide 36 H Anion Gap 5 BUN 36 H Creatinine 0.96 Est GFR ( Amer) > 60 Est GFR (Non-Af Amer) 57 L Glucose 245 H Calcium 7.9 L Magnesium 2.2 03/08/19 07:00 Carbonic Acid 1.54 H HCO3/H2CO3 Ratio 20:1 ABG pH 7.40 ABG pCO2 51.2 H ABG pO2 110.3 H ABG HCO3 31.1 H ABG O2 Saturation 98.0 ABG Base Excess 5.4 FiO2 2L Sodium Potassium Chloride Carbon Dioxide Anion Gap BUN Creatinine Est GFR ( Amer) Est GFR (Non-Af Amer) Glucose Calcium Magnesium 03/02/19 03/02/19 03/02/19 16:17 16:17 22:15 Creatine Kinase 37 CK-MB (CK-2) 1.27 Troponin I 0.024 0.030 NT-Pro-B Natriuret Pep 634 H 03/06/19 03/07/19 03/08/19 04:07 05:09 06:40 Creatine Kinase CK-MB (CK-2) Troponin I NT-Pro-B Natriuret Pep 2340 H 1760 H 1650 H Impressions: Chest X-Ray 03/06/19 11:10 IMPRESSION: Persistent right hilar opacity, stable from multiple priors. No other evidence of acute cardiopulmonary process Assessment and Plan - Diagnosis (1) Acute and chronic respiratory failure with hypercapnia Is this a current diagnosis for this admission?: Yes Plan: The patient is on 2 L nasal cannula. She is complaining of a congested cough. She reports coughing up greenish sputum. I have placed an order for a sputum culture. I have also added guaifenesin to help thin her secretions. Hypercapnia has improved. 03/06/2019-the patient still has a congested cough. The patient was seen by speech therapy. The patient has significant reflux/regurgitation. Is likely due to an esophageal issue. This does put her at high risk for aspiration. A chest x-ray did not show evidence of aspiration pneumonitis. Her brain atretic peptide was significantly elevated and so I am going to increase her furosemide. I still think she needs free water and so I will change her IV fluids to one half normal saline at 80 mL an hour in an effort to bring down her BUN. Her creatinine is back in the normal range. 03/07/2019-chest x-ray did not show evidence of an infiltrate. She does have the right hilar prominence with her history of lung cancer. No evidence of overt pulmonary edema or pneumonia. Her oxygen saturation levels typically are over 96%. I have encouraged the staff to limit oxygen supplementation to keep her pulse ox less than 95%. 03/08/2019-anteriorly she did still exhibit wheezing. She was sleeping and not tachypneic. No increased work of breathing. Despite aggressive regimen she remains with sporadic wheezing. (2) COPD (chronic obstructive pulmonary disease) Qualifiers: COPD type: COPD with acute exacerbation Qualified Code(s): J44.1 - Chronic obstructive pulmonary disease with (acute) exacerbation Is this a current diagnosis for this admission?: Yes Plan: The patient is on Xopenex scheduled at every 4 hours I will decrease it to every 6 hours. She is also on Brio Ellipta and Spiriva. She has Xopenex available as needed in addition to the scheduled dose. Her home medication list includes Advair and Symbicort. Will need to clarify this with her. She also remains on systemic steroids. 03/06/2019-because of the current condition I am going to change her regimen. She will receive the higher dose of Xopenex with ipratropium nebulizer treatments every 6 hours. Xopenex is available every 3 hours if needed. I will discontinue the Spiriva at this point. She will continue on the systemic steroids. Some of her respiratory failure at this point could be congestive heart failure. 03/07/2019-I will decrease the systemic steroids partly due to this episode of delirium earlier today. In addition I will add Pulmicort so that she will be on Xopenex and ipratropium every 6 hours and Pulmicort every 12 hours. She has Symbicort and Advair listed as home inhaler therapy. I will try and find out which one she is consistently on. She did mention the red top which certainly could be Symbicort. I would like to get her on a home regimen prior to discharge. Her exam is certainly improved today. 03/08/2019-despite Brio Ellipta, Spiriva and systemic steroids the patient still has intermittent wheezes. The patient is also on scheduled Xopenex. It is possible that this is her baseline. We will try to increase activity and see how she tolerates it. Blood gas shows a chronically elevated PCO2 which is also likely her baseline. (3) Acute on chronic diastolic CHF (congestive heart failure) Is this a current diagnosis for this admission?: Yes Plan: I have increased her diltiazem to 30 mg every 6 hours for combination of borderline tachycardia and her hypertension. I have also added back to her b aseline 20 mg of furosemide daily. I have also taken the liberty of starting her on low-dose STACY inhibitor. 03/06/2019-as noted above her BNP is much higher. I have increased her furosemide. IV fluid will be changed to give the patient more free water. 03/07/2019-the patient's BNP is slightly improved with increased furosemide. I have decreased the IV fluids and change to half-normal saline to give the patient more free water. I would like to achieve a negative fluid balance again and see her brain atretic peptide decrease as well. From a clinical standpoint her breathing is easier today. 03/08/2019-the patient is on 40 mg of furosemide. Her baseline dose at home is 20. She still has a positive fluid balance. BUN is still elevated but review of previous admission shows that this is close to her baseline. We will continue her lisinopril as well. 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 The steroids have likely increased her glucose. According to her home medication list she was not on medication prior to this admission. Continue to monitor Accu-Chek glucose readings. 03/06/2019-going to increase the strength of the sliding scale. I will consider adding metformin or an additional oral agent based on the sliding scale requirements. I like to see her Accu-Cheks less than 200 consistently with the majority of readings less than 150. 03/07/2019-I have increased the sliding scale to a more aggressive regimen. I will give it another day or 2 before making any other adjustments. She may need an oral agent added. I think decreasing the steroids will also help. 03/08/2019-I have added metformin 500 mg twice daily. We should start to see a slow improvement in her Accu-Cheks. (5) Coronary artery disease Is this a current diagnosis for this admission?: Yes Plan: The patient has a history of coronary disease but is not on an STACY inhibitor, aspirin therapy or beta-wan. They may be avoiding beta-blockers because of her COPD. I did start low-dose STACY inhibitor and aspirin 81 mg daily. I will defer statin therapy to her primary care provider. 03/06/2019-continue current regimen. 03/07/2019-no complaints of chest discomfort. Stable on current regimen. 03/08/2019-as above (6) Hypothyroidism Qualifiers: Hypothyroidism type: acquired Qualified Code(s): E03.9 - Hypothyroidism, unspecified Is this a current diagnosis for this admission?: Yes Plan: Continue levothyroxine 100 mcg daily 03/06/2019-continue levothyroxine. 03/07/2019-no indication that the thyroid is contributing to the clinical picture therefore continue her current 100 mcg daily dose. 03/08/2019-continue current regimen (7) GERD (gastroesophageal reflux disease) Qualifiers: Esophagitis presence: esophagitis presence not specified Qualified Code(s): K21.9 - Gastro-esophageal reflux disease without esophagitis Is this a current diagnosis for this admission?: Yes Plan: 03/06/2019-the patient is on a proton pump inhibitor. The patient will need outpatient work-up as it is possible that she has esophageal dysmotility versus stricture from her history of reflux. Speech therapy also suggest consideration of an outpatient modified barium swallow. 03/07/2019-I did discontinue the H2 wan now that the patient is on a proton pump inhibitor. 03/08/2019-continue Protonix but decrease to once daily. - Time Time Spent with patient: Less than 15 minutes Medications reviewed and adjusted accordingly: Yes Anticipated discharge: Home
[2019-03-08] MEDS: 1/2 NORMAL SALINE 1,000 ML IV PRN (16:15)
[2019-03-08] MEDS: METFORMIN HCL 500 MG TABLET PO SCH (16:57)
[2019-03-08] MEDS ORDERED: NYSTATIN TOPICAL POWDER 15 GM TP ONE (17:00)
[2019-03-08] MEDS: NYSTATIN TOPICAL POWDER 15 GM TP SCH (21:41)
[2019-03-08] MEDS: ASPIRIN 81 MG TABLET, ENT COATED PO SCH (21:50)
[2019-03-09] MEDS: DILTIAZEM HCL 30 MG TABLET PO SCH ×3 (00:26→14:43)
[2019-03-09] MEDS: LEVALBUTEROL HCL NEB 1.25 MG/3 ML AMPUL NEB SCH ×4 (02:08→20:10)
[2019-03-09] MEDS: IPRATROPIUM BROMIDE 0.02% NEB 0.5 MG/2.5 ML AMPUL NEB SCH ×4 (02:08→20:10)
[2019-03-09] MEDS: 1/2 NORMAL SALINE 1,000 ML IV PRN ×2 (04:47→16:09)
[2019-03-09] MEDS: LEVOTHYROXINE SODIUM 0.05 MG TABLET PO SCH (06:11)
[2019-03-09] MEDS: PANTOPRAZOLE SODIUM 40 MG TABLET.DR PO SCH (06:12)
[2019-03-09] MEDS: ACETAMINOPHEN 325 MG TABLET PO PRN (08:02)
[2019-03-09] MEDS: INSULIN LISPRO 100 UNIT/ML 3 ML VIAL SUBCUT SCH ×4 (08:03→22:25)
[2019-03-09] MEDS: METFORMIN HCL 500 MG TABLET PO SCH ×2 (08:03→17:16)
[2019-03-09] MEDS: FUROSEMIDE 40 MG TABLET PO SCH (08:03)
[2019-03-09] MEDS: BUDESONIDE NEB 0.25 MG/2 ML AMPUL NEB SCH ×2 (08:33→20:10)
[2019-03-09] MEDS: LISINOPRIL 5 MG TABLET PO SCH (10:11)
[2019-03-09] MEDS: SERTRALINE HCL 50 MG TABLET PO SCH (10:11)
[2019-03-09] MEDS: METHYLPREDNISOLONE INJ 40 MG/1 ML SDV IV SCH ×2 (10:12→22:24)
[2019-03-09] MEDS: POTASSIUM CHLORIDE 10 MEQ CAPSULE.ER PO SCH (10:12)
[2019-03-09] MEDS: ENOXAPARIN SODIUM INJ 40 MG/0.4 ML DISP.SYRIN SUBCUT SCH (10:14)
[2019-03-09] MEDS: FLUTICASONE/VILANTEROL 200-25 MCG/DOSE IH SCH ×2 (10:14→22:24)
[2019-03-09] MEDS: NYSTATIN TOPICAL POWDER 15 GM TP SCH ×2 (10:21→22:24)
--- NOTE | 2019-03-09 17:21 | PDOC PROGRESS REPORT ---
Subjective Progress Note for:: 03/09/19 Subjective:: Patient is awake today. She answering questions. Breathing appears to be at baseline. Reason For Visit: ACUTE ON CHRONIC HYPOXEMIC HYPOXEMIC HYPERCARBIC Physical Exam Vital Signs: Temp Pulse Resp BP Pulse Ox 98.0 F 100 17 126/64 H 98 03/09/19 11:04 03/09/19 11:04 03/09/19 11:04 03/09/19 11:04 03/09/19 11:04 Intake & Output 03/08/19 03/09/19 03/10/19 06:59 06:59 06:59 Intake Total 2680 1472 Output Total 200 150 Balance 2480 1322 Weight 86 kg 84.6 kg General appearance: PRESENT: no acute distress, cooperative, well-developed, other - Nasal cannula in place Head exam: PRESENT: atraumatic, normocephalic Ear exam: PRESENT: normal external ear exam Mouth exam: PRESENT: moist, tongue midline Respiratory exam: PRESENT: symmetrical, unlabored, wheezes - Sporadic expiratory wheezes. ABSENT: accessory muscle use, rales, rhonchi, tachypnea Cardiovascular exam: PRESENT: RRR, +S1, +S2 GI/Abdominal exam: PRESENT: hypoactive bowel sounds, soft. ABSENT: distended, guarding, tenderness Rectal exam: PRESENT: deferred Neurological exam: PRESENT: alert, awake, oriented to person, oriented to place, oriented to situation Psychiatric exam: PRESENT: appropriate affect. ABSENT: agitated, anxious Focused psych exam: ABSENT: delusional, restlessness Results Laboratory Results: 03/07/19 05:09 03/08/19 06:40 03/02/19 03/02/19 03/02/19 16:17 16:17 22:15 Creatine Kinase 37 CK-MB (CK-2) 1.27 Troponin I 0.024 0.030 NT-Pro-B Natriuret Pep 634 H 03/06/19 03/07/19 03/08/19 04:07 05:09 06:40 Creatine Kinase CK-MB (CK-2) Troponin I NT-Pro-B Natriuret Pep 2340 H 1760 H 1650 H Impressions: Chest X-Ray 03/06/19 11:10 IMPRESSION: Persistent right hilar opacity, stable from multiple priors. No other evidence of acute cardiopulmonary process Assessment and Plan - Diagnosis (1) Acute and chronic respiratory failure with hypercapnia Is this a current diagnosis for this admission?: Yes Plan: The patient is on 2 L nasal cannula. She is complaining of a congested cough. She reports coughing up greenish sputum. I have placed an order for a sputum culture. I have also added guaifenesin to help thin her secretions. Hype rcapnia has improved. 03/06/2019-the patient still has a congested cough. The patient was seen by sp eech therapy. The patient has significant reflux/regurgitation. Is likely due to an esophageal issue. This does put her at high risk for aspiration. A chest x-ray did not show evidence of aspiration pneumonitis. Her brain atretic peptide was significantly elevated and so I am going to increase her furosemide. I still think she needs free water and so I will change her IV fluids to one half normal saline at 80 mL an hour in an effort to bring down her BUN. Her creatinine is back in the normal range. 03/07/2019-chest x-ray did not show evidence of an infiltrate. She does have the right hilar prominence with her history of lung cancer. No evidence of overt pulmonary edema or pneumonia. Her oxygen saturation levels typically are over 96%. I have encouraged the staff to limit oxygen supplementation to keep her pulse ox less than 95%. 03/08/2019-anteriorly she did still exhibit wheezing. She was sleeping and not tachypneic. No increased work of breathing. Despite aggressive regimen she remains with sporadic wheezing. 03/09/2019-she awakens easily today. She sat up for auscultation. She still has occasional wheezing. This certainly could be her baseline. We will continue the same regimen. The plan is for home. Hopefully by Monday. (2) COPD (chronic obstructive pulmonary disease) Qualifiers: COPD type: COPD with acute exacerbation Qualified Code(s): J44.1 - Chronic obstructive pulmonary disease with (acute) exacerbation Is this a current diagnosis for this admission?: Yes Plan: The patient is on Xopenex scheduled at every 4 hours I will decrease it to every 6 hours. She is also on Brio Ellipta and Spiriva. She has Xopenex available as needed in addition to the scheduled dose. Her home medication list includes Advair and Symbicort. Will need to clarify this with her. She also remains on systemic steroids. 03/06/2019-because of the current condition I am going to change her regimen. She will receive the higher dose of Xopenex with ipratropium nebulizer treatments every 6 hours. Xopenex is available every 3 hours if needed. I will discontinue the Spiriva at this point. She will continue on the systemic steroids. Some of her respiratory failure at this point could be congestive heart failure. 03/07/2019-I will decrease the systemic steroids partly due to this episode of delirium earlier today. In addition I will add Pulmicort so that she will be on Xopenex and ipratropium every 6 hours and Pulmicort every 12 hours. She has Symbicort and Advair listed as home inhaler therapy. I will try and find out which one she is consistently on. She did mention the red top which certainly could be Symbicort. I would like to get her on a home regimen prior to discharge. Her exam is certainly improved today. 03/08/2019-despite Brio Ellipta, Spiriva and systemic steroids the patient still has intermittent wheezes. The patient is also on scheduled Xopenex. It is possible that this is her baseline. We will try to increase activity and see how she tolerates it. Blood gas shows a chronically elevated PCO2 which is also likely her baseline. 03/09/2019-as noted above she is more awake today. Breathing is relaxed but ther e are still intermittent wheezes. This is likely her baseline. Will discuss with pulmonology regarding any other medications that we might use. (3) Acute on chronic diastolic CHF (congestive heart failure) Is this a current diagnosis for this admission?: Yes Plan: I have increased her diltiazem to 30 mg every 6 hours for combination of borderline tachycardia and her hypertension. I have also added back to her baseline 20 mg of furosemide daily. I have also taken the liberty of starting her on low-dose STACY inhibitor. 03/06/2019-as noted above her BNP is much higher. I have increased her furosemide. IV fluid will be changed to give the patient more free water. 03/07/2019-the patient's BNP is slightly improved with increased furosemide. I have decreased the IV fluids and change to half-normal saline to give the patient more free water. I would like to achieve a negative fluid balance again and see her brain atretic peptide decrease as well. From a clinical standpoint her breathing is easier today. 03/08/2019-the patient is on 40 mg of furosemide. Her baseline dose at home is 20. She still has a positive fluid balance. BUN is still elevated but review of previous admission shows that this is close to her baseline. We will continue her lisinopril as well. 03/09/2019-the patient's net fluid balance is still positive however clinically she is improved and her brain atretic peptide continues to decrease. We will continue the same regimen at this time. 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 The steroids have likely increased her glucose. According to her home medication list she was not on medication prior to this admission. Continue to monitor Accu-Chek glucose readings. 03/06/2019-going to increase the strength of the sliding scale. I will consider adding metformin or an additional oral agent based on the sliding scale req uirements. I like to see her Accu-Cheks less than 200 consistently with the majority of readings less than 150. 03/07/2019-I have increased the sliding scale to a more aggressive regimen. I will give it another day or 2 before making any other adjustments. She may need an oral agent added. I think decreasing the steroids will also help. 03/08/2019-I have added metformin 500 mg twice daily. We should start to see a slow improvement in her Accu-Cheks. 03/09/2019-because the Accu-Cheks are still quite high I will increase the metformin to 1000 mg twice daily. (5) Coronary artery disease Is this a current diagnosis for this admission?: Yes Plan: The patient has a history of coronary disease but is not on an STACY inhibitor, aspirin therapy or beta-wan. They may be avoiding beta-blockers because of her COPD. I did start low-dose STACY inhibitor and aspirin 81 mg daily. I will defer statin therapy to her primary care provider. 03/06/2019-continue current regimen. 03/07/2019-no complaints of chest discomfort. Stable on current regimen. 03/08/2019-as above 03/09/2019-still without acute coronary complaints. Continue same regimen. (6) Hypothyroidism Qualifiers: Hypothyroidism type: acquired Qualified Code(s): E03.9 - Hypothyroidism, unspecified Is this a current diagnosis for this admission?: Yes Plan: Continue levothyroxine 100 mcg daily 03/06/2019-continue levothyroxine. 03/07/2019-no indication that the thyroid is contributing to the clinical picture therefore continue her current 100 mcg daily dose. 03/08/2019-continue current regimen 03/09/2019-no change in levothyroxine. (7) GERD (gastroesophageal reflux disease) Qualifiers: Esophagitis presence: esophagitis presence not specified Qualified Code(s): K21.9 - Gastro-esophageal reflux disease without esophagitis Is this a current diagnosis for this admission?: Yes Plan: 03/06/2019-the patient is on a proton pump inhibitor. The patient will need outpatient work-up as it is possible that she has esophageal dysmotility versus stricture from her history of reflux. Speech therapy also suggest consideration of an outpatient modified barium swallow. 03/07/2019-I did discontinue the H2 wan now that the patient is on a proton pump inhibitor. 03/08/2019-continue Protonix but decrease to once daily. 03/09/2019-there does not appear to be any change by reducing the Protonix. The patient still should have endoscopy as an outpatient to assess esophagus. - Time Time Spent with patient: 15-24 minutes Medications reviewed and adjusted accordingly: Yes Anticipated discharge: Home Within: within 48 hours
[2019-03-09] MEDS: ASPIRIN 81 MG TABLET, ENT COATED PO SCH (22:24)
[2019-03-10] MEDS: 1/2 NORMAL SALINE 1,000 ML IV PRN (01:27)
[2019-03-10] MEDS: LEVALBUTEROL HCL NEB 1.25 MG/3 ML AMPUL NEB SCH ×4 (02:12→20:18)
[2019-03-10] MEDS: IPRATROPIUM BROMIDE 0.02% NEB 0.5 MG/2.5 ML AMPUL NEB SCH ×4 (02:12→20:18)
[2019-03-10] MEDS: LEVOTHYROXINE SODIUM 0.05 MG TABLET PO SCH (05:06)
[2019-03-10] MEDS: PANTOPRAZOLE SODIUM 40 MG TABLET.DR PO SCH (05:06)
[2019-03-10 05:21] LABS: ANION GAP 7 (5-19); BLOOD UREA NITROGEN 40 mg/dL (7-20); CALCIUM 8.4 mg/dL (8.4-10.2); CARBON DIOXIDE 32 mmol/L (22-30); CHLORIDE 99 mmol/L (98-107); GLUCOSE 265 mg/dL (75-110); POTASSIUM 4.1 mmol/L (3.6-5.0)
[2019-03-10] MEDS: BUDESONIDE NEB 0.25 MG/2 ML AMPUL NEB SCH ×2 (08:36→20:19)
[2019-03-10] MEDS: FUROSEMIDE 40 MG TABLET PO SCH (09:08)
[2019-03-10] MEDS: LISINOPRIL 5 MG TABLET PO SCH (09:08)
[2019-03-10] MEDS: SERTRALINE HCL 50 MG TABLET PO SCH (09:08)
[2019-03-10] MEDS: METFORMIN HCL 500 MG TABLET PO SCH ×2 (09:08→17:25)
[2019-03-10] MEDS: METHYLPREDNISOLONE INJ 40 MG/1 ML SDV IV SCH ×2 (09:09→21:58)
[2019-03-10] MEDS: INSULIN LISPRO 100 UNIT/ML 3 ML VIAL SUBCUT SCH ×4 (09:09→22:07)
[2019-03-10] MEDS: FLUTICASONE/VILANTEROL 200-25 MCG/DOSE IH SCH ×2 (09:09→22:02)
[2019-03-10] MEDS: POTASSIUM CHLORIDE 10 MEQ CAPSULE.ER PO SCH (09:09)
[2019-03-10] MEDS: NYSTATIN TOPICAL POWDER 15 GM TP SCH ×2 (09:10→22:02)
[2019-03-10] MEDS: ENOXAPARIN SODIUM INJ 40 MG/0.4 ML DISP.SYRIN SUBCUT SCH (09:17)
[2019-03-10] MEDS ORDERED: 1/2 NORMAL SALINE 1,000 ML IV PRN ×2 (09:31→15:57)
[2019-03-10] MEDS ORDERED: DILTIAZEM HCL 120 MG CAP.SR.24H PO SCH (10:00)
[2019-03-10] MEDS ORDERED: METOPROLOL SUCCINATE 25 MG TAB.SR.24H PO SCH (10:00)
[2019-03-10] MEDS ORDERED: DILTIAZEM HCL 30 MG TABLET PO ONE ×2 (12:00→18:15)
[2019-03-10] MEDS: METOPROLOL SUCCINATE 50 MG TAB.SR.24H PO SCH (12:29)
[2019-03-10] MEDS: ROFLUMILAST 500 MCG TABLET PO SCH (12:31)
[2019-03-10] MEDS: DILTIAZEM HCL 180 MG CAPSULE.CR PO SCH (15:32)
--- NOTE | 2019-03-10 16:02 | PDOC PROGRESS REPORT ---
Subjective Progress Note for:: 03/10/19 Subjective:: Patient is resting comfortably however she is still wheezing. She is complaining of substernal chest discomfort. She reports that it feels like food is sticking during her swallow. Reason For Visit: ACUTE ON CHRONIC HYPOXEMIC HYPERCARBIC respiratory failure Weakness and deconditioning Esophageal reflux Physical Exam Vital Signs: Temp Pulse Resp BP Pulse Ox 98.4 F 114 H 18 168/81 H 100 03/10/19 08:35 03/10/19 08:35 03/10/19 08:35 03/10/19 08:35 03/10/19 08:35 Intake & Output 03/09/19 03/10/19 03/11/19 06:59 06:59 06:59 Intake Total 1472 2484 Output Total 150 Balance 1322 2484 Weight 84.6 kg 87.7 kg General appearance: PRESENT: cooperative, mild distress, well-developed Head exam: PRESENT: atraumatic, normocephalic Eye exam: PRESENT: conjunctiva pale. ABSENT: scleral icterus Ear exam: PRESENT: normal external ear exam Mouth exam: PRESENT: moist, neck supple, tongue midline Respiratory exam: PRESENT: prolonged expiratory phas, symmetrical, tachypnea - Borderline tachypnea, wheezes - Still with expiratory wheezes. ABSENT: rales, rhonchi Cardiovascular exam: PRESENT: RRR, +S1, +S2 GI/Abdominal exam: PRESENT: normal bowel sounds, soft. ABSENT: distended, tenderness Neurological exam: PRESENT: alert, awake, oriented to person, oriented to place, oriented to situation Psychiatric exam: PRESENT: flat affect. ABSENT: agitated, anxious Focused psych exam: ABSENT: delusional, restlessness Results Laboratory Results: 03/07/19 05:09 03/10/19 04:39 03/10/19 04:39 Sodium 137.8 Potassium 4.1 Chloride 99 Carbon Dioxide 32 H Anion Gap 7 BUN 40 H Creatinine 1.03 Est GFR ( Amer) > 60 Est GFR (Non-Af Amer) 52 L Glucose 265 H Calcium 8.4 Magnesium 2.1 03/02/19 03/02/19 03/02/19 16:17 16:17 22:15 Creatine Kinase 37 CK-MB (CK-2) 1.27 Troponin I 0.024 0.030 NT-Pro-B Natriuret Pep 634 H 03/06/19 03/07/19 03/08/19 04:07 05:09 06:40 Creatine Kinase CK-MB (CK-2) Troponin I NT-Pro-B Natriuret Pep 2340 H 1760 H 1650 H Impressions: Chest X-Ray 03/06/19 11:10 IMPRESSION: Persistent right hilar opacity, stable from multiple priors. No other evidence of acute cardiopulmonary process Assessment and Plan - Diagnosis (1) Acute and chronic respiratory failure with hypercapnia Is this a current diagnosis for this admission?: Yes Plan: The patient is on 2 L nasal cannula. She is complaining of a congested cough. She reports coughing up greenish sputum. I have placed an order for a sputum culture. I have also added guaifenesin to help thin her secretions. Hypercapnia has improved. 03/06/2019-the patient still has a congested cough. The patient was seen by speech therapy. The patient has significant reflux/regurgitation. Is likely due to an esophageal issue. This does put her at high risk for aspiration. A chest x-ray did not show evidence of aspiration pneumonitis. Her brain atretic peptide was significantly elevated and so I am going to increase her furosemide. I still think she needs free water and so I will change her IV fluids to one half normal saline at 80 mL an hour in an effort to bring down her BUN. Her creatinine is back in the normal range. 03/07/2019-chest x-ray did not show evidence of an infiltrate. She does have the right hilar prominence with her history of lung cancer. No evidence of overt pulmonary edema or pneumonia. Her oxygen saturation levels typically are over 96%. I have encouraged the staff to limit oxygen supplementation to keep her pulse ox less than 95%. 03/08/2019-anteriorly she did still exhibit wheezing. She was sleeping and not tachypneic. No increased work of breathing. Despite aggressive regimen she remains with sporadic wheezing. 03/09/2019-she awakens easily today. She sat up for auscultation. She still has occasional wheezing. This certainly could be her baseline. We will continue the same regimen. The plan is for home. Hopefully by Monday. 03/10/2019-she is sitting up in bed and she just finished lunch. There is a visitor sleeping in the chair who did not wake up during this encounter. Upon direct questioning she feels that her respiratory status is still not back to baseline. As she is already on aggressive nebulizer medications I am going to add Daliresp 250 mcg daily with the intention of increasing to 500 mg daily. (2) COPD (chronic obstructive pulmonary disease) Qualifiers: COPD type: COPD with acute exacerbation Qualified Code(s): J44.1 - Chronic obstructive pulmonary disease with (acute) exacerbation Is this a current diagnosis for this admission?: Yes Plan: The patient is on Xopenex scheduled at every 4 hours I will decrease it to every 6 hours. She is also on Brio Ellipta and Spiriva. She has Xopenex available as needed in addition to the scheduled dose. Her home medication list includes Advair and Symbicort. Will need to clarify this with her. She also remains on systemic steroids. 03/06/2019-because of the current condition I am going to change her regimen. She will receive the higher dose of Xopenex with ipratropium nebulizer treatments every 6 hours. Xopenex is available every 3 hours if needed. I will discontinue the Spiriva at this point. She will continue on the systemic steroids. Some of her respiratory failure at this point could be congestive heart failure. 03/07/2019-I will decrease the systemic steroids partly due to this episode of delirium earlier today. In addition I will add Pulmicort so that she will be on Xopenex and ipratropium every 6 hours and Pulmicort every 12 hours. She has Symbicort and Advair listed as home inhaler therapy. I will try and find out which one she is consistently on. She did mention the red top which certainly could be Symbicort. I would like to get her on a home regimen prior to discharge. Her exam is certainly improved today. 03/08/2019-despite Brio Ellipta, Spiriva and systemic steroids the patient still has intermittent wheezes. The patient is also on scheduled Xopenex. It is possible that this is her baseline. We will try to increase activity and see how she tolerates it. Blood gas shows a chronically elevated PCO2 which is also likely her baseline. 03/09/2019-as noted above she is more awake today. Breathing is relaxed but there are still intermittent wheezes. This is likely her baseline. Will disc uss with pulmonology regarding any other medications that we might use. 03/10/2019-as noted above I added Daliresp to her regimen of nebulizer treatments and systemic steroids. Will aim for pulse ox of 88 to 92% and taper oxygen accordingly. She still has diffuse wheezing. (3) Acute on chronic diastolic CHF (congestive heart failure) Is this a current diagnosis for this admission?: Yes Plan: I have increased her diltiazem to 30 mg every 6 hours for combination of borderline tachycardia and her hypertension. I have also added back to her baseline 20 mg of furosemide daily. I have also taken the liberty of starting her on low-dose STACY inhibitor. 03/06/2019-as noted above her BNP is much higher. I have increased her furose mide. IV fluid will be changed to give the patient more free water. 03/07/2019-the patient's BNP is slightly improved with increased furosemide. I have decreased the IV fluids and change to half-normal saline to give the patient more free water. I would like to achieve a negative fluid balance again and see her brain atretic peptide decrease as well. From a clinical standpoint her breathing is easier today. 03/08/2019-the patient is on 40 mg of furosemide. Her baseline dose at home is 20. She still has a positive fluid balance. BUN is still elevated but review of previous admission shows that this is close to her baseline. We will continue her lisinopril as well. 03/09/2019-the patient's net fluid balance is still positive however clinically she is improved and her brain atretic peptide continues to decrease. We will continue the same regimen at this time. 03/10/2019-her brain atretic peptide is continuing to improve. I do not believe her wheeze is cardiogenic at this point. I have been trying to give half-normal saline to bring down her BUN but this is likely her baseline for BUN. I will decrease the IV fluids and monitor her fluid balance. I am likely going to discontinue the IV fluids tomorrow. 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 The steroids have likely increased her glucose. According to her home medication list she was not on medication prior to this admission. Continue to monitor Accu-Chek glucose readings. 03/06/2019-going to increase the strength of the sliding scale. I will consider adding metformin or an additional oral agent based on the sliding scale requirements. I like to see her Accu-Cheks less than 200 consistently with the majority of readings less than 150. 03/07/2019-I have increased the sliding scale to a more aggressive regimen. I will give it another day or 2 before making any other adjustments. She may need an oral agent added. I think decreasing the steroids will also help. 03/08/2019-I have added metformin 500 mg twice daily. We should start to see a s low improvement in her Accu-Cheks. 03/09/2019-because the Accu-Cheks are still quite high I will increase the metformin to 1000 mg twice daily. 03/10/2019-in addition to the increase in metformin I have added Lantus 10 units daily. She has been getting at least 12 and sometimes 16 units of sliding scale coverage daily. We will continue to monitor Accu-Cheks and adjust her treatment regimen accordingly. (5) Coronary artery disease Is this a current diagnosis for this admission?: Yes Plan: The patient has a history of coronary disease but is not on an STACY inhibitor, aspirin therapy or beta-wan. They may be avoiding beta-blockers because of her COPD. I did start low-dose STACY inhibitor and aspirin 81 mg daily. I will d efer statin therapy to her primary care provider. 03/06/2019-continue current regimen. 03/07/2019-no complaints of chest discomfort. Stable on current regimen. 03/08/2019-as above 03/09/2019-still without acute coronary complaints. Continue same regimen. 03/10/2019-still asymptomatic. I would like to achieve good blood pressure control and avoid fluid overload. (6) Hypothyroidism Qualifiers: Hypothyroidism type: acquired Qualified Code(s): E03.9 - Hypothyroidism, unspecified Is this a current diagnosis for this admission?: Yes Plan: Continue levothyroxine 100 mcg daily 03/06/2019-continue levothyroxine. 03/07/2019-no indication that the thyroid is contributing to the clinical picture therefore continue her current 100 mcg daily dose. 03/08/2019-continue current regimen 03/09/2019-no change in levothyroxine. 03/10/2019-continue levothyroxine (7) GERD (gastroesophageal reflux disease) Qualifiers: Esophagitis presence: esophagitis presence not specified Qualified Code(s): K21.9 - Gastro-esophageal reflux disease without esophagitis Is this a current diagnosis for this admission?: Yes Plan: 03/06/2019-the patient is on a proton pump inhibitor. The patient will need outpatient work-up as it is possible that she has esophageal dysmotility versus stricture from her history of reflux. Speech therapy also suggest consideration of an outpatient modified barium swallow. 03/07/2019-I did discontinue the H2 wan now that the patient is on a proton pump inhibitor. 03/08/2019-continue Protonix but decrease to once daily. 03/09/2019-there does not appear to be any change by reducing the Protonix. The patient still should have endoscopy as an outpatient to assess esophagus. 03/10/2019-the patient remains on proton pump inhibitor therapy. The thought was to arrange for a modified barium swallow as an outpatient. Unfortunately with her symptoms today and the fact that she tends to eat at less than 45 degree angle I feel it is appropriate to obtain a simple barium swallow study. This will be effective to reveal a stricture in the esophagus. The patient could be silently refluxing esophageal contents with subsequent aspiration. - Time Time Spent with patient: 15-24 minutes Medications reviewed and adjusted accordingly: Yes - Plan Summary Plan Summary: Based on the patient's limited recovery and her significant weakness and decon ditioning I believe that fdc with possible long-term placement is most appropriate. I feel that if she goes home even with home health she will be back in the hospital within months.
[2019-03-10] MEDS: ASPIRIN 81 MG TABLET, ENT COATED PO SCH (21:59)
[2019-03-10] MEDS: INSULIN GLARGINE,HUM.REC.ANLOG 1,000 UNIT/10 ML VIAL SUBCUT SCH (22:06)
[2019-03-11] MEDS: LEVALBUTEROL HCL NEB 1.25 MG/3 ML AMPUL NEB SCH ×4 (02:28→20:23)
[2019-03-11] MEDS: IPRATROPIUM BROMIDE 0.02% NEB 0.5 MG/2.5 ML AMPUL NEB SCH ×4 (02:28→20:23)
[2019-03-11] MEDS: LEVOTHYROXINE SODIUM 0.05 MG TABLET PO SCH (06:13)
[2019-03-11] MEDS: PANTOPRAZOLE SODIUM 40 MG TABLET.DR PO SCH (06:13)
[2019-03-11 06:36] LABS: HEMATOCRIT 28.1 % (36.0-47.0); HEMOGLOBIN 9.4 g/dL (12.0-15.5); MEAN CORPUSCULAR HEMOGLOBIN 32.5 pg (27.0-33.4); MEAN CORPUSCULAR HGB CONC 33.4 g/dL (32.0-36.0); MEAN CORPUSCULAR VOLUME 97 fl (80-97); PLATELET COUNT 190 10^3/uL (150-450); RED BLOOD COUNT 2.89 10^6/uL (3.72-5.28); RED CELL DISTRIBUTION WIDTH 15.6 % (11.5-14.0); WHITE BLOOD COUNT 11.1 10^3/uL (4.0-10.5)
[2019-03-11 07:02] LABS: ANION GAP 5 (5-19); BLOOD UREA NITROGEN 38 mg/dL (7-20); CALCIUM 8.4 mg/dL (8.4-10.2); CARBON DIOXIDE 35 mmol/L (22-30); CHLORIDE 98 mmol/L (98-107); GLUCOSE 208 mg/dL (75-110); POTASSIUM 4.2 mmol/L (3.6-5.0)
[2019-03-11] MEDS: FUROSEMIDE 40 MG TABLET PO SCH (07:56)
[2019-03-11] MEDS: INSULIN LISPRO 100 UNIT/ML 3 ML VIAL SUBCUT SCH ×5 (07:56→22:03)
[2019-03-11] MEDS: METFORMIN HCL 500 MG TABLET PO SCH ×2 (07:56→15:41)
[2019-03-11] MEDS: BUDESONIDE NEB 0.25 MG/2 ML AMPUL NEB SCH ×2 (08:48→20:23)
[2019-03-11] MEDS: METHYLPREDNISOLONE INJ 40 MG/1 ML SDV IV SCH (10:39)
[2019-03-11] MEDS: ENOXAPARIN SODIUM INJ 40 MG/0.4 ML DISP.SYRIN SUBCUT SCH (10:39)
[2019-03-11] MEDS: POTASSIUM CHLORIDE 10 MEQ CAPSULE.ER PO SCH (10:40)
[2019-03-11] MEDS: LISINOPRIL 5 MG TABLET PO SCH (10:40)
[2019-03-11] MEDS: SERTRALINE HCL 50 MG TABLET PO SCH (10:40)
[2019-03-11] MEDS: DILTIAZEM HCL 180 MG CAPSULE.CR PO SCH (10:41)
[2019-03-11] MEDS: METOPROLOL SUCCINATE 50 MG TAB.SR.24H PO SCH (10:41)
[2019-03-11] MEDS: ROFLUMILAST 500 MCG TABLET PO SCH (10:41)
[2019-03-11] MEDS: FLUTICASONE/VILANTEROL 200-25 MCG/DOSE IH SCH ×2 (10:42→22:47)
[2019-03-11] MEDS: NYSTATIN TOPICAL POWDER 15 GM TP SCH ×2 (10:43→22:04)
--- NOTE | 2019-03-11 15:40 | RADIOLOGY REPORT (SQ) ---
EXAM DESCRIPTION: BARIUM SWALLOW ESOPHAGUS COMPLETED DATE/TIME: 03/11/2019 9:57 am REASON FOR STUDY: Dysphagia COMPARISON: None. TECHNIQUE: Under fluoroscopic guidance, patient ingested thin barium. Fluoroscopic spot images and r outine radiographic images acquired and stored on PACS. 12 MM BARIUM TABLET GIVEN: The patient swallowed a 12 mm barium tablet without difficulty. The table t remained in the distal esophagus due to spasm and esophageal dysmotility. LIMITATIONS: Patient unable to stand, therefore images acquired in supine position. . FLUOROSCOPY TIME: 2.23 minutes 6 images saved to PACS. FINDINGS: NEUROMUSCULAR COORDINATION OF SWALLOW: Normal. No aspiration. ESOPHAGEAL MOTILITY: Esophageal dysmotility with moderate tertiary contractions noted. ESOPHAGEAL MUCOSA: Normal mucosa without masses or ulceration. GASTRO-ESOPHAGEAL JUNCTION: No hiatal hernia or reflux. NON-GI TRACT STRUCTURES: No significant finding. OTHER: No other significant finding. IMPRESSION: ESOPHAGEAL DYSMOTILITY WITH MODERATE TERTIARY CONTRACTIONS. OTHERWISE UNREMARKABLE STUD Y. COMMENT: None Quality ID [id number]: Final reports for procedures using fluoroscopy that document radiation exposure ricardo diane, or exposure time and number of fluorographic images (if radiation exposure indices are not avail able) TECHNICAL DOCUMENTATION: JOB ID: [id number] [employer]- All Rights Reserved Reading location - IP/workstation name: [email or web address]
[2019-03-11] MEDS: ASPIRIN 81 MG TABLET, ENT COATED PO SCH (22:03)
[2019-03-11] MEDS: INSULIN GLARGINE,HUM.REC.ANLOG 1,000 UNIT/10 ML VIAL SUBCUT SCH (22:04)
--- NOTE | 2019-03-11 22:08 | PDOC PROGRESS REPORT ---
Subjective Progress Note for:: 03/11/19 Subjective:: Patient resting comfortably in bed. She is wondering about going home. She states she is walking with physical therapy. The reality is they needed a 2 person assist to get her into the wheelchair for her barium swallow. Reason For Visit: ACUTE ON CHRONIC HYPOXEMIC HYPOXEMIC HYPERCARBIC Physical Exam Vital Signs: Temp Pulse Resp BP Pulse Ox 98.3 F 89 20 102/72 100 03/11/19 11:43 03/11/19 11:43 03/11/19 11:43 03/11/19 11:43 03/11/19 11:43 Intake & Output 03/10/19 03/11/19 03/12/19 06:59 06:59 06:59 Intake Total 2484 4075 Output Total 100 Balance 2484 3975 Weight 87.7 kg 88 kg General appearance: PRESENT: no acute distress, cooperative, well-developed Ear exam: PRESENT: normal external ear exam Respiratory exam: PRESENT: clear to auscultation jeff - Mostly clear with very faint occasional wheeze, symmetrical, unlabored, wheezes - Faint occasional wheeze. (Much better than yesterday). ABSENT: rales, rhonchi, tachypnea Cardiovascular exam: PRESENT: RRR, +S1, +S2 GI/Abdominal exam: PRESENT: normal bowel sounds, soft. ABSENT: distended, tenderness Neurological exam: PRESENT: alert, awake, oriented to person, oriented to place, oriented to situation Psychiatric exam: PRESENT: appropriate affect. ABSENT: agitated, anxious Focused psych exam: ABSENT: delusional, restlessness Results Laboratory Results: 03/11/19 05:27 03/11/19 05:27 03/11/19 03/11/19 05:27 05:27 WBC 11.1 H RBC 2.89 L Hgb 9.4 L Hct 28.1 L MCV 97 MCH 32.5 MCHC 33.4 RDW 15.6 H Plt Count 190 Sodium 138.2 Potassium 4.2 Chloride 98 Carbon Dioxide 35 H Anion Gap 5 BUN 38 H Creatinine 1.12 Est GFR ( Amer) 57 L Est GFR (Non-Af Amer) 47 L Glucose 208 H Calcium 8.4 Magnesium 1.9 03/02/19 03/02/19 03/02/19 16:17 16:17 22:15 Creatine Kinase 37 CK-MB (CK-2) 1.27 Troponin I 0.024 0.030 NT-Pro-B Natriuret Pep 634 H 03/06/19 03/07/19 03/08/19 04:07 05:09 06:40 Creatine Kinase CK-MB (CK-2) Troponin I NT-Pro-B Natriuret Pep 2340 H 1760 H 1650 H Impressions: Chest X-Ray 03/06/19 11:10 IMPRESSION: Persistent right hilar opacity, stable from multiple priors. No other evidence of acute cardiopulmonary process Assessment and Plan - Diagnosis (1) Acute and chronic respiratory failure with hypercapnia Is this a current diagnosis for this admission?: Yes Plan: The patient is on 2 L nasal cannula. She is complaining of a congested cough. She reports coughing up greenish sputum. I have placed an order for a sputum culture. I have also added guaifenesin to help thin her secretions. Hypercapnia has improved. 03/06/2019-the patient still has a congested cough. The patient was seen by speech therapy. The patient has significant reflux/regurgitation. Is likely due to an esophageal issue. This does put her at high risk for aspiration. A chest x-ray did not show evidence of aspiration pneumonitis. Her brain atretic peptide was significantly elevated and so I am going to increase her furosemide. I still think she needs free water and so I will change her IV fluids to one half normal saline at 80 mL an hour in an effort to bring down her BUN. Her creatinine is back in the normal range. 03/07/2019-chest x-ray did not show evidence of an infiltrate. She does have the right hilar prominence with her history of lung cancer. No evidence of overt pulmonary edema or pneumonia. Her oxygen saturation levels typically are over 96%. I have encouraged the staff to limit oxygen supplementation to keep her pulse ox less than 95%. 03/08/2019-anteriorly she did still exhibit wheezing. She was sleeping and not tachypneic. No increased work of breathing. Despite aggressive regimen she remains with sporadic wheezing. 03/09/2019-she awakens easily today. She sat up for auscultation. She still has occasional wheezing. This certainly could be her baseline. We will continue the same regimen. The plan is for home. Hopefully by Monday. 03/10/2019-she is sitting up in bed and she just finished lunch. There is a visitor sleeping in the chair who did not wake up during this encounter. Upon direct questioning she feels that her respiratory status is still not back to pollo taimary alice. As she is already on aggressive nebulizer medications I am going to add Daliresp 250 mcg daily with the intention of increasing to 500 mg daily. 03/11/2019-the patient in fact sounds better today. We initiated therapy with Daliresp. Unfortunately I believe she will not get much better due to her end- stage COPD. (2) COPD (chronic obstructive pulmonary disease) Qualifiers: COPD type: COPD with acute exacerbation Qualified Code(s): J44.1 - Chronic obstructive pulmonary disease with (acute) exacerbation Is this a current diagnosis for this admission?: Yes Plan: The patient is on Xopenex scheduled at every 4 hours I will decrease it to every 6 hours. She is also on Brio Ellipta and Spiriva. She has Xopenex available as needed in addition to the scheduled dose. Her home medication list includes Advair and Symbicort. Will need to clarify this with her. She also remains on systemic steroids. 03/06/2019-because of the current condition I am going to change her regimen. She will receive the higher dose of Xopenex with ipratropium nebulizer treatments e very 6 hours. Xopenex is available every 3 hours if needed. I will discontinue the Spiriva at this point. She will continue on the systemic steroids. Some of her respiratory failure at this point could be congestive heart failure. 03/07/2019-I will decrease the systemic steroids partly due to this episode of delirium earlier today. In addition I will add Pulmicort so that she will be on Xopenex and ipratropium every 6 hours and Pulmicort every 12 hours. She has Symbicort and Advair listed as home inhaler therapy. I will try and find out which one she is consistently on. She did mention the red top which certainly could be Symbicort. I would like to get her on a home regimen prior to d ischarge. Her exam is certainly improved today. 03/08/2019-despite Brio Ellipta, Spiriva and systemic steroids the patient still has intermittent wheezes. The patient is also on scheduled Xopenex. It is possible that this is her baseline. We will try to increase activity and see how she tolerates it. Blood gas shows a chronically elevated PCO2 which is also likely her baseline. 03/09/2019-as noted above she is more awake today. Breathing is relaxed but there are still intermittent wheezes. This is likely her baseline. Will discuss with pulmonology regarding any other medications that we might use. 03/10/2019-as noted above I added Daliresp to her regimen of nebulizer treatments and systemic steroids. Will aim for pulse ox of 88 to 92% and taper oxygen accordingly. She still has diffuse wheezing. Continue aggressive regimen. Daliresp was added. We will need to taper the steroids to avoid detrimental adverse effects. (3) Acute on chronic diastolic CHF (congestive heart failure) Is this a current diagnosis for this admission?: Yes Plan: I have increased her diltiazem to 30 mg every 6 hours for combination of borderline tachycardia and her hypertension. I have also added back to her baseline 20 mg of furosemide daily. I have also taken the liberty of starting her on low-dose STACY inhibitor. 03/06/2019-as noted above her BNP is much higher. I have increased her furosemide. IV fluid will be changed to give the patient more free water. 03/07/2019-the patient's BNP is slightly improved with increased furosemide. I have decreased the IV fluids and change to half-normal saline to give the patient more free water. I would like to achieve a negative fluid balance again and see her brain atretic peptide decrease as well. From a clinical standpoint her breathing is easier today. 03/08/2019-the patient is on 40 mg of furosemide. Her baseline dose at home is 20. She still has a positive fluid balance. BUN is still elevated but review of previous admission shows that this is close to her baseline. We will continue her lisinopril as well. 03/09/2019-the patient's net fluid balance is still positive however clinically she is improved and her brain atretic peptide continues to decrease. We will continue the same regimen at this time. 03/10/2019-her brain atretic peptide is continuing to improve. I do not believe her wheeze is cardiogenic at this point. I have been trying to give half-normal saline to bring down her BUN but this is likely her baseline for BUN. I will decrease the IV fluids and monitor her fluid balance. I am likely going to discontinue the IV fluids tomorrow. 03/11/2019-the patient is on furosemide, lisinopril and metoprolol with aspirin therapy daily. Her congestive failure seems to be well compensated. 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 The steroids have likely increased her glucose. According to her home medication list she was not on medication prior to this admission. Continue to monitor Accu-Chek glucose readings. 03/06/2019-going to increase the strength of the sliding scale. I will consider adding metformin or an additional oral agent based on the sliding scale requirements. I like to see her Accu-Cheks less than 200 consistently with the majority of readings less than 150. 03/07/2019-I have increased the sliding scale to a more aggressive regimen. I will give it another day or 2 before making any other adjustments. She may need an oral agent added. I think decreasing the steroids will also help. 03/08/2019-I have added metformin 500 mg twice daily. We should start to see a slow improvement in her Accu-Cheks. 03/09/2019-because the Accu-Cheks are still quite high I will increase the metformin to 1000 mg twice daily. 03/10/2019-in addition to the increase in metformin I have added Lantus 10 units daily. She has been getting at least 12 and sometimes 16 units of sliding scale coverage daily. We will continue to monitor Accu-Cheks and adjust her treatment regimen accordingly. 03/11/2019-it was difficult to achieve adequate control with metformin and sliding scale. I did add Lantus 10 units daily. Continue to monitor Accu-Cheks and adjust medications accordingly. (5) Coronary artery disease Is this a current diagnosis for this admission?: Yes Plan: The patient has a history of coronary disease but is not on an STACY inhibitor, aspirin therapy or beta-wan. They may be avoiding beta-blockers because of her COPD. I did start low-dose STACY inhibitor and aspirin 81 mg daily. I will defer statin therapy to her primary care provider. 03/06/2019-continue current regimen. 03/07/2019-no complaints of chest discomfort. Stable on current regimen. 03/08/2019-as above 03/09/2019-still without acute coronary complaints. Continue same regimen. 03/10/2019-still asymptomatic. I would like to achieve good blood pressure control and avoid fluid overload. 03/11/2019-continue current regimen. (6) Hypothyroidism Qualifiers: Hypothyroidism type: acquired Qualified Code(s): E03.9 - Hypothyroidism, unspecified Is this a current diagnosis for this admission?: Yes Plan: Continue levothyroxine 100 mcg daily 03/06/2019-continue levothyroxine. 03/07/2019-no indication that the thyroid is contributing to the clinical picture therefore continue her current 100 mcg daily dose. 03/08/2019-continue current regimen 03/09/2019-no change in levothyroxine. 03/10/2019-continue levothyroxine 03/11/2019-continue levothyroxine (7) GERD (gastroesophageal reflux disease) Qualifiers: Esophagitis presence: esophagitis presence not specified Qualified Code(s): K21.9 - Gastro-esophageal reflux disease without esophagitis Is this a current diagnosis for this admission?: Yes Plan: 03/06/2019-the patient is on a proton pump inhibitor. The patient will need outpatient work-up as it is possible that she has esophageal dysmotility versus stricture from her history of reflux. Speech therapy also suggest consideration of an outpatient modified barium swallow. 03/07/2019-I did discontinue the H2 wan now that the patient is on a proton pump inhibitor. 03/08/2019-continue Protonix but decrease to once daily. 03/09/2019-there does not appear to be any change by reducing the Protonix. The patient still should have endoscopy as an outpatient to assess esophagus. 03/10/2019-the patient remains on proton pump inhibitor therapy. The thought was to arrange for a modified barium swallow as an outpatient. Unfortunately with her symptoms today and the fact that she tends to eat at less than 45 degree angle I feel it is appropriate to obtain a simple barium swallow study. This will be effective to reveal a stricture in the esophagus. The patient could be silently refluxing esophageal contents with subsequent aspiration. 03/11/2019-the barium swallow showed esophageal dysmotility. We will continue the diltiazem. She might benefit from some diet modification. Consider esophagogastroscopy as an outpatient. (8) Severe muscle deconditioning Is this a current diagnosis for this admission?: Yes Plan: 03/11/2019-the patient is extremely unstable and weak. She would not be safe for discharge to home even with home health. She will need placement at [facility] facility to maximize her recovery. - Time Time Spent with patient: 15-24 minutes Medications reviewed and adjusted accordingly: Yes Anticipated discharge: SNF
[2019-03-12] MEDS: LEVALBUTEROL HCL NEB 1.25 MG/3 ML AMPUL NEB SCH ×4 (01:48→20:20)
[2019-03-12] MEDS: IPRATROPIUM BROMIDE 0.02% NEB 0.5 MG/2.5 ML AMPUL NEB SCH ×4 (01:48→20:20)
[2019-03-12] MEDS: LEVOTHYROXINE SODIUM 0.05 MG TABLET PO SCH (05:04)
[2019-03-12] MEDS: PANTOPRAZOLE SODIUM 40 MG TABLET.DR PO SCH (05:04)
[2019-03-12] MEDS: METHYLPREDNISOLONE INJ 40 MG/1 ML SDV IV SCH (06:44)
[2019-03-12] MEDS: INSULIN LISPRO 100 UNIT/ML 3 ML VIAL SUBCUT SCH ×4 (08:00→22:07)
[2019-03-12] MEDS: METFORMIN HCL 500 MG TABLET PO SCH ×2 (08:06→17:05)
[2019-03-12] MEDS: FUROSEMIDE 40 MG TABLET PO SCH (08:06)
[2019-03-12] MEDS: BUDESONIDE NEB 0.25 MG/2 ML AMPUL NEB SCH ×2 (08:59→20:20)
[2019-03-12] MEDS: LISINOPRIL 5 MG TABLET PO SCH (09:53)
[2019-03-12] MEDS: DILTIAZEM HCL 180 MG CAPSULE.CR PO SCH (09:53)
[2019-03-12] MEDS: FLUTICASONE/VILANTEROL 200-25 MCG/DOSE IH SCH ×2 (09:53→22:07)
[2019-03-12] MEDS: ROFLUMILAST 500 MCG TABLET PO SCH (09:53)
[2019-03-12] MEDS: POTASSIUM CHLORIDE 10 MEQ CAPSULE.ER PO SCH (09:53)
[2019-03-12] MEDS: ENOXAPARIN SODIUM INJ 40 MG/0.4 ML DISP.SYRIN SUBCUT SCH (09:53)
[2019-03-12] MEDS: METOPROLOL SUCCINATE 50 MG TAB.SR.24H PO SCH (09:53)
[2019-03-12] MEDS: SERTRALINE HCL 50 MG TABLET PO SCH (09:54)
[2019-03-12] MEDS: NYSTATIN TOPICAL POWDER 15 GM TP SCH ×2 (09:55→22:08)
[2019-03-12] MEDS ORDERED: METHYLPREDNISOLONE INJ 40 MG/1 ML SDV IV SCH (10:00)
--- NOTE | 2019-03-12 16:02 | PDOC PROGRESS REPORT ---
Subjective Progress Note for:: 03/12/19 Subjective:: TRENTON MCCOY is a 73 year old female patient with multiple and complex medical problems including A. fib, diabetes mellitus hypothyroidism, diastolic CHF, hypertension, coronary 3 disease, chronic respiratory failure O2 dependent 20/02 due to COPD, dementia and history of lung and brain CA presented with chief complaint of shortness of breath. Patient reported that she ran out of her albuterol metered-dose inhaler so she started to have worsening of her underlying shortness of breath. She denies fever, chills, chest pain, palpitation or diaphoresis. She does not have any nausea vomiting or abdominal pain. Her initial blood work is unremarkable except for hemoglobin of 9.6 which is not new. Her ABG shows pH of 7.4 PCO2 of 61 and PO2 of 76. 03/03/2019: Patient seen propped up in bed. Patient reports this her shortness of breath is relatively improved. Patient has underlying chronic respiratory failure due to O2 dependent COPD. Her medication reviewed and reconciled. Blood work and vital signs are within normal limits. 03/04/2019: Patient seen propped up in bed and enjoying her breakfast. Patient is still in mild to moderate respiratory distress with audible wheezing. Vital signs and blood works are unremarkable. I will continue the current management. Potential discharge in the next 24 to 48 hours if she remains stable. 03/12/2019: Patient has not been discharged since I admit her last time. I have assumed the attending role today. I seen patient propped up in bed and enjoying her lunch. She reports this her shortness of breath is at its baseline. I discussed the case with child welfare social worker Farheen who is trying to contact her POA to facilitate her transition to senior living facility. Reason For Visit: ACUTE ON CHRONIC HYPOXEMIC HYPOXEMIC HYPERCARBIC Physical Exam Vital Signs: Temp Pulse Resp BP Pulse Ox 97.3 F 77 16 137/71 H 96 03/12/19 11:14 03/12/19 14:56 03/12/19 14:56 03/12/19 07:52 03/12/19 14:56 Intake & Output 03/11/19 03/12/19 03/13/19 06:59 06:59 06:59 Intake Total 4075 820 Output Total 100 1475 Balance 3975 -655 Weight 88 kg 84.9 kg General appearance: PRESENT: mild distress Eye exam: PRESENT: conjunctiva pink Mouth exam: PRESENT: moist Respiratory exam: PRESENT: clear to auscultation jeff. ABSENT: rales, rhonchi, wheezes Cardiovascular exam: PRESENT: RRR. ABSENT: diastolic murmur, rubs, systolic murmur GI/Abdominal exam: PRESENT: normal bowel sounds, soft. ABSENT: distended, guarding, mass, organolmegaly, rebound, tenderness Neurological exam: PRESENT: alert, awake Results Laboratory Results: 03/11/19 05:27 03/11/19 05:27 03/02/19 03/02/19 03/02/19 16:17 16:17 22:15 Creatine Kinase 37 CK-MB (CK-2) 1.27 Troponin I 0.024 0.030 NT-Pro-B Natriuret Pep 634 H 03/06/19 03/07/19 03/08/19 04:07 05:09 06:40 Creatine Kinase CK-MB (CK-2) Troponin I NT-Pro-B Natriuret Pep 2340 H 1760 H 1650 H Impressions: Chest X-Ray 03/06/19 11:10 IMPRESSION: Persistent right hilar opacity, stable from multiple priors. No other evidence of acute cardiopulmonary process Esophagus X-Ray 03/11/19 00:00 IMPRESSION: ESOPHAGEAL DYSMOTILITY WITH MODERATE TERTIARY CONTRACTIONS. OTHERWISE UNREMARKABLE STUDY. Assessment and Plan - Diagnosis (1) Debility and deconditioning Is this a current diagnosis for this admission?: Yes Plan: alf facility placement (2) Acute and chronic respiratory failure with hypercapnia Is this a current diagnosis for this admission?: Yes Plan: The patient is on 2 L nasal cannula. She is complaining of a congested cough. She reports coughing up greenish sputum. I have placed an order for a sputum culture. I have also added guaifenesin to help thin her secretions. Hypercapnia has improved. 03/06/2019-the patient still has a congested cough. The patient was seen by speech therapy. The patient has significant reflux/regurgitation. Is likely due to an esophageal issue. This does put her at high risk for aspiration. A chest x-ray did not show evidence of aspiration pneumonitis. Her brain atretic peptide was significantly elevated and so I am going to increase her furosemide. I still think she needs free water and so I will change her IV fluids to one half normal saline at 80 mL an hour in an effort to bring down her BUN. Her creatinine is back in the normal range. 03/07/2019-chest x-ray did not show evidence of an infiltrate. She does have the right hilar prominence with her history of lung cancer. No evidence of overt pulmonary edema or pneumonia. Her oxygen saturation levels typically are over 96%. I have encouraged the staff to limit oxygen supplementation to keep her pulse ox less than 95%. 03/08/2019-anteriorly she did still exhibit wheezing. She was sleeping and not tachypneic. No increased work of breathing. Despite aggressive regimen she remains with sporadic wheezing. 03/09/2019-she awakens easily today. She sat up for auscultation. She still has occasional wheezing. This certainly could be her baseline. We will continue the same regimen. The plan is for home. Hopefully by Monday. 03/10/2019-she is sitting up in bed and she just finished lunch. There is a vi sitor sleeping in the chair who did not wake up during this encounter. Upon direct questioning she feels that her respiratory status is still not back to baseline. As she is already on aggressive nebulizer medications I am going to add Daliresp 250 mcg daily with the intention of increasing to 500 mg daily. 03/11/2019-the patient in fact sounds better today. We initiated therapy with Daliresp. Unfortunately I believe she will not get much better due to her end- stage COPD. (3) COPD (chronic obstructive pulmonary disease) Qualifiers: COPD type: COPD with acute exacerbation Qualified Code(s): J44.1 - Chronic obstructive pulmonary disease with (acute) exacerbation Is this a current diagnosis for this admission?: Yes Plan: The patient is on Xopenex scheduled at every 4 hours I will decrease it to every 6 hours. She is also on Brio Ellipta and Spiriva. She has Xopenex available as needed in addition to the scheduled dose. Her home medication list includes Ad vair and Symbicort. Will need to clarify this with her. She also remains on systemic steroids. 03/06/2019-because of the current condition I am going to change her regimen. She will receive the higher dose of Xopenex with ipratropium nebulizer treatments every 6 hours. Xopenex is available every 3 hours if needed. I will discontinue the Spiriva at this point. She will continue on the systemic steroids. Some of her respiratory failure at this point could be congestive heart failure. 03/07/2019-I will decrease the systemic steroids partly due to this episode of delirium earlier today. In addition I will add Pulmicort so that she will be on Xopenex and ipratropium every 6 hours and Pulmicort every 12 hours. She has Symbicort and Advair listed as home inhaler therapy. I will try and find out which one she is consistently on. She did mention the red top which certainly could be Symbicort. I would like to get her on a home regimen prior to discharge. Her exam is certainly improved today. 03/08/2019-despite Brio Ellipta, Spiriva and systemic steroids the patient still has intermittent wheezes. The patient is also on scheduled Xopenex. It is possible that this is her baseline. We will try to increase activity and see how she tolerates it. Blood gas shows a chronically elevated PCO2 which is also likely her baseline. 03/09/2019-as noted above she is more awake today. Breathing is relaxed but there are still intermittent wheezes. This is likely her baseline. Will discuss with pulmonology regarding any other medications that we might use. 03/10/2019-as noted above I added Daliresp to her regimen of nebulizer treatments and systemic steroids. Will aim for pulse ox of 88 to 92% and taper oxygen accordingly. She still has diffuse wheezing. Continue aggressive regimen. Daliresp was added. We will need to taper the steroids to avoid detrimental adverse effects. 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 The steroids have likely increased her glucose. According to her home medication list she was not on medication prior to this admission. Continue to monitor Accu-Chek glucose readings. 03/06/2019-going to increase the strength of the sliding scale. I will consider adding metformin or an additional oral agent based on the sliding scale requirements. I like to see her Accu-Cheks less than 200 consistently with the majority of readings less than 150. 03/07/2019-I have increased the sliding scale to a more aggressive regimen. I will give it another day or 2 before making any other adjustments. She may need an oral agent added. I think decreasing the steroids will also help. 03/08/2019-I have added metformin 500 mg twice daily. We should start to see a slow improvement in her Accu-Cheks. 03/09/2019-because the Accu-Cheks are still quite high I will increase the metformin to 1000 mg twice daily. 03/10/2019-in addition to the increase in metformin I have added Lantus 10 units daily. She has been getting at least 12 and sometimes 16 units of sliding scale coverage daily. We will continue to monitor Accu-Cheks and adjust her treatment regimen accordingly. 03/11/2019-it was difficult to achieve adequate control with metformin and sliding scale. I did add Lantus 10 units daily. Continue to monitor Accu-Cheks and adjust medications accordingly. (5) Acute on chronic diastolic CHF (congestive heart failure) Is this a current diagnosis for this admission?: Yes Plan: I have increased her diltiazem to 30 mg every 6 hours for combination of borderline tachycardia and her hypertension. I have also added back to her baseline 20 mg of furosemide daily. I have also taken the liberty of starting her on low-dose STACY inhibitor. 03/06/2019-as noted above her BNP is much higher. I have increased her furosemide. IV fluid will be changed to give the patient more free water. 03/07/2019-the patient's BNP is slightly improved with increased furosemide. I have decreased the IV fluids and change to half-normal saline to give the patient more free water. I would like to achieve a negative fluid balance again and see her brain atretic peptide decrease as well. From a clinical standpoint her breathing is easier today. 03/08/2019-the patient is on 40 mg of furosemide. Her baseline dose at home is 20. She still has a positive fluid balance. BUN is still elevated but review of previous admission shows that this is close to her baseline. We will continue her lisinopril as well. 03/09/2019-the patient's net fluid balance is still positive however clinically she is improved and her brain atretic peptide continues to decrease. We will continue the same regimen at this time. 03/10/2019-her brain atretic peptide is continuing to improve. I do not believe her wheeze is cardiogenic at this point. I have been trying to give half-normal saline to bring down her BUN but this is likely her baseline for BUN. I will decrease the IV fluids and monitor her fluid balance. I am likely going to discontinue the IV fluids tomorrow. 03/11/2019-the patient is on furosemide, lisinopril and metoprolol with aspirin therapy daily. Her congestive failure seems to be well compensated. (6) Coronary artery disease Is this a current diagnosis for this admission?: Yes Plan: The patient has a history of coronary disease but is not on an STACY inhibitor, as pirin therapy or beta-wan. They may be avoiding beta-blockers because of her COPD. I did start low-dose STACY inhibitor and aspirin 81 mg daily. I will defer statin therapy to her primary care provider. 03/06/2019-continue current regimen. 03/07/2019-no complaints of chest discomfort. Stable on current regimen. 03/08/2019-as above 03/09/2019-still without acute coronary complaints. Continue same regimen. 03/10/2019-still asymptomatic. I would like to achieve good blood pressure control and avoid fluid overload. 03/11/2019-continue current regimen. (7) Hypothyroidism Qualifiers: Hypothyroidism type: acquired Qualified Code(s): E03.9 - Hypothyroidism, unspecified Is this a current diagnosis for this admission?: Yes Plan: Continue levothyroxine 100 mcg daily 03/06/2019-continue levothyroxine. 03/07/2019-no indication that the thyroid is contributing to the clinical picture therefore continue her current 100 mcg daily dose. 03/08/2019-continue current regimen 03/09/2019-no change in levothyroxine. 03/10/2019-continue levothyroxine 03/11/2019-continue levothyroxine
[2019-03-12] MEDS: ASPIRIN 81 MG TABLET, ENT COATED PO SCH (22:06)
[2019-03-12] MEDS: INSULIN GLARGINE,HUM.REC.ANLOG 1,000 UNIT/10 ML VIAL SUBCUT SCH (22:07)
[2019-03-13] MEDS: IPRATROPIUM BROMIDE 0.02% NEB 0.5 MG/2.5 ML AMPUL NEB SCH ×4 (02:19→20:23)
[2019-03-13] MEDS: LEVALBUTEROL HCL NEB 1.25 MG/3 ML AMPUL NEB SCH ×4 (02:19→20:23)
[2019-03-13] MEDS: LEVOTHYROXINE SODIUM 0.05 MG TABLET PO SCH (05:39)
[2019-03-13] MEDS: PANTOPRAZOLE SODIUM 40 MG TABLET.DR PO SCH (05:39)
[2019-03-13] MEDS: BUDESONIDE NEB 0.25 MG/2 ML AMPUL NEB SCH ×2 (07:55→20:23)
[2019-03-13] MEDS: INSULIN LISPRO 100 UNIT/ML 3 ML VIAL SUBCUT SCH ×4 (08:24→21:45)
[2019-03-13] MEDS: METFORMIN HCL 500 MG TABLET PO SCH ×2 (08:29→17:02)
[2019-03-13] MEDS: FUROSEMIDE 40 MG TABLET PO SCH (08:29)
[2019-03-13] MEDS: POTASSIUM CHLORIDE 10 MEQ CAPSULE.ER PO SCH (09:30)
[2019-03-13] MEDS: LISINOPRIL 5 MG TABLET PO SCH (09:30)
[2019-03-13] MEDS: SERTRALINE HCL 50 MG TABLET PO SCH (09:30)
[2019-03-13] MEDS: PREDNISONE 20 MG TABLET PO SCH (09:30)
[2019-03-13] MEDS: DILTIAZEM HCL 180 MG CAPSULE.CR PO SCH (09:30)
[2019-03-13] MEDS: METOPROLOL SUCCINATE 50 MG TAB.SR.24H PO SCH (09:30)
[2019-03-13] MEDS: ROFLUMILAST 500 MCG TABLET PO SCH (09:30)
[2019-03-13] MEDS: NYSTATIN TOPICAL POWDER 15 GM TP SCH ×2 (09:31→21:48)
[2019-03-13] MEDS: FLUTICASONE/VILANTEROL 200-25 MCG/DOSE IH SCH ×2 (09:31→21:45)
[2019-03-13] MEDS: ENOXAPARIN SODIUM INJ 40 MG/0.4 ML DISP.SYRIN SUBCUT SCH (09:35)
--- NOTE | 2019-03-13 12:56 | PDOC PROGRESS REPORT ---
Subjective Progress Note for:: 03/13/19 Subjective:: TRENTON MCCOY is a 73 year old female patient with multiple and complex medical problems including A. fib, diabetes mellitus hypothyroidism, diastolic CHF, hypertension, coronary 3 disease, chronic respiratory failure O2 dependent 20/02 due to COPD, dementia and history of lung and brain CA presented with chief complaint of shortness of breath. Patient reported that she ran out of her albuterol metered-dose inhaler so she started to have worsening of her underlying shortness of breath. She denies fever, chills, chest pain, palpitation or diaphoresis. She does not have any nausea vomiting or abdominal pain. Her initial blood work is unremarkable except for hemoglobin of 9.6 which is not new. Her ABG shows pH of 7.4 PCO2 of 61 and PO2 of 76. 03/03/2019: Patient seen propped up in bed. Patient reports this her shortness of breath is relatively improved. Patient has underlying chronic respiratory failure due to O2 dependent COPD. Her medication reviewed and reconciled. Blood work and vital signs are within normal limits. 03/04/2019: Patient seen propped up in bed and enjoying her breakfast. Patient is still in mild to moderate respiratory distress with audible wheezing. Vital signs and blood works are unremarkable. I will continue the current management. Potential discharge in the next 24 to 48 hours if she remains stable. 03/12/2019: Patient has not been discharged since I admit her last time. I have assumed the attending role today. I seen patient propped up in bed and enjoying her lunch. She reports this her shortness of breath is at its baseline. I discussed the case with social work administrator Farheen who is trying to contact her POA to facilitate her transition to [facility] facility. 03/13/2019: No significant change overnight. I discussed the case with social work administrator and she told me that she has not contacted her POA yet. Reason For Visit: ACUTE ON CHRONIC HYPOXEMIC HYPOXEMIC HYPERCARBIC Physical Exam Vital Signs: Temp Pulse Resp BP Pulse Ox 97.9 F 85 20 100/41 L 100 03/13/19 11:22 03/13/19 11:22 03/13/19 11:22 03/13/19 11:22 03/13/19 11:22 Intake & Output 03/12/19 03/13/19 03/14/19 06:59 06:59 06:59 Intake Total 820 240 Output Total 1475 Balance -655 240 Weight 84.9 kg 84.9 kg General appearance: PRESENT: no acute distress Head exam: PRESENT: atraumatic Neck exam: ABSENT: carotid bruit, JVD, lymphadenopathy, thyromegaly Respiratory exam: PRESENT: wheezes Cardiovascular exam: PRESENT: irregular rhythm Neurological exam: PRESENT: alert, awake Results Laboratory Results: 03/11/19 05:27 03/11/19 05:27 03/02/19 03/02/19 03/02/19 16:17 16:17 22:15 Creatine Kinase 37 CK-MB (CK-2) 1.27 Troponin I 0.024 0.030 NT-Pro-B Natriuret Pep 634 H 03/06/19 03/07/19 03/08/19 04:07 05:09 06:40 Creatine Kinase CK-MB (CK-2) Troponin I NT-Pro-B Natriuret Pep 2340 H 1760 H 1650 H Impressions: Chest X-Ray 03/06/19 11:10 IMPRESSION: Persistent right hilar opacity, stable from multiple priors. No other evidence of acute cardiopulmonary process Esophagus X-Ray 03/11/19 00:00 IMPRESSION: ESOPHAGEAL DYSMOTILITY WITH MODERATE TERTIARY CONTRACTIONS. OTHERWISE UNREMARKABLE STUDY. Assessment and Plan - Diagnosis (1) Debility and deconditioning Is this a current diagnosis for this admission?: Yes Plan: snf facility placement (2) Acute and chronic respiratory failure with hypercapnia Is this a current diagnosis for this admission?: Yes Plan: The patient is on 2 L nasal cannula. She is complaining of a congested cough. She reports coughing up greenish sputum. I have placed an order for a sputum culture. I have also added guaifenesin to help thin her secretions. Hypercapnia has improved. 03/06/2019-the patient still has a congested cough. The patient was seen by speech therapy. The patient has significant reflux/regurgitation. Is likely due to an esophageal issue. This does put her at high risk for aspiration. A chest x-ray did not show evidence of aspiration pneumonitis. Her brain atretic peptide was significantly elevated and so I am going to increase her furosemide. I still think she needs free water and so I will change her IV fluids to one razo lf normal saline at 80 mL an hour in an effort to bring down her BUN. Her creatinine is back in the normal range. 03/07/2019-chest x-ray did not show evidence of an infiltrate. She does have the right hilar prominence with her history of lung cancer. No evidence of overt pulmonary edema or pneumonia. Her oxygen saturation levels typically are over 96%. I have encouraged the staff to limit oxygen supplementation to keep her pulse ox less than 95%. 03/08/2019-anteriorly she did still exhibit wheezing. She was sleeping and not tachypneic. No increased work of breathing. Despite aggressive regimen she remains with sporadic wheezing. 03/09/2019-she awakens easily today. She sat up for auscultation. She still has occasional wheezing. This certainly could be her baseline. We will continue the same regimen. The plan is for home. Hopefully by Monday. 03/10/2019-she is sitting up in bed and she just finished lunch. There is a visitor sleeping in the chair who did not wake up during this encounter. Upon direct questioning she feels that her respiratory status is still not back to baseline. As she is already on aggressive nebulizer medications I am going to add Daliresp 250 mcg daily with the intention of increasing to 500 mg daily. 03/11/2019-the patient in fact sounds better today. We initiated therapy with Daliresp. Unfortunately I believe she will not get much better due to her end- stage COPD. (3) COPD (chronic obstructive pulmonary disease) Qualifiers: COPD type: COPD with acute exacerbation Qualified Code(s): J44.1 - Chronic obstructive pulmonary disease with (acute) exacerbation Is this a current diagnosis for this admission?: Yes Plan: The patient is on Xopenex scheduled at every 4 hours I will decrease it to every 6 hours. She is also on Brio Ellipta and Spiriva. She has Xopenex available as needed in addition to the scheduled dose. Her home medication list includes Advair and Symbicort. Will need to clarify this with her. She also remains on systemic steroids. 03/06/2019-because of the current condition I am going to change her regimen. She will receive the higher dose of Xopenex with ipratropium nebulizer treatments every 6 hours. Xopenex is available every 3 hours if needed. I will discontinue the Spiriva at this point. She will continue on the systemic steroids. Some of her respiratory failure at this point could be congestive heart failure. 03/07/2019-I will decrease the systemic steroids partly due to this episode of delirium earlier today. In addition I will add Pulmicort so that she will be on Xopenex and ipratropium every 6 hours and Pulmicort every 12 hours. She has Symbicort and Advair listed as home inhaler therapy. I will try and find out which one she is consistently on. She did mention the red top which certainly could be Symbicort. I would like to get her on a home regimen prior to dis charge. Her exam is certainly improved today. 03/08/2019-despite Brio Ellipta, Spiriva and systemic steroids the patient still has intermittent wheezes. The patient is also on scheduled Xopenex. It is possible that this is her baseline. We will try to increase activity and see how she tolerates it. Blood gas shows a chronically elevated PCO2 which is also likely her baseline. 03/09/2019-as noted above she is more awake today. Breathing is relaxed but there are still intermittent wheezes. This is likely her baseline. Will discuss with pulmonology regarding any other medications that we might use. 03/10/2019-as noted above I added Daliresp to her regimen of nebulizer treatments and systemic steroids. Will aim for pulse ox of 88 to 92% and taper oxygen accordingly. She still has diffuse wheezing. Continue aggressive regimen. Daliresp was added. We will need to taper the steroids to avoid detrimental adverse effects. 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 The steroids have likely increased her glucose. According to her home medication list she was not on medication prior to this admission. Continue to monitor Accu-Chek glucose readings. 03/06/2019-going to increase the strength of the sliding scale. I will consider adding metformin or an additional oral agent based on the sliding scale requirements. I like to see her Accu-Cheks less than 200 consistently with the majority of readings less than 150. 03/07/2019-I have increased the sliding scale to a more aggressive regimen. I will give it another day or 2 before making any other adjustments. She may need an oral agent added. I think decreasing the steroids will also help. 03/08/2019-I have added metformin 500 mg twice daily. We should start to see a slow improvement in her Accu-Cheks. 03/09/2019-because the Accu-Cheks are still quite high I will increase the metformin to 1000 mg twice daily. 03/10/2019-in addition to the increase in metformin I have added Lantus 10 units daily. She has been getting at least 12 and sometimes 16 units of sliding scale coverage daily. We will continue to monitor Accu-Cheks and adjust her treatment regimen accordingly. 03/11/2019-it was difficult to achieve adequate control with metformin and sliding scale. I did add Lantus 10 units daily. Continue to monitor Accu-Cheks and adjust medications accordingly. (5) Acute on chronic diastolic CHF (congestive heart failure) Is this a current diagnosis for this admission?: Yes Plan: I have increased her diltiazem to 30 mg every 6 hours for combination of borderline tachycardia and her hypertension. I have also added back to her baseline 20 mg of furosemide daily. I have also taken the liberty of starting her on low-dose STACY inhibitor. 03/06/2019-as noted above her BNP is much higher. I have increased her furosemide. IV fluid will be changed to give the patient more free water. 03/07/2019-the patient's BNP is slightly improved with increased furosemide. I have decreased the IV fluids and change to half-normal saline to give the patient more free water. I would like to achieve a negative fluid balance again and see her brain atretic peptide decrease as well. From a clinical standpoint her breathing is easier today. 03/08/2019-the patient is on 40 mg of furosemide. Her baseline dose at home is 20. She still has a positive fluid balance. BUN is still elevated but review of previous admission shows that this is close to her baseline. We will continue her lisinopril as well. 03/09/2019-the patient's net fluid balance is still positive however clinically she is improved and her brain atretic peptide continues to decrease. We will continue the same regimen at this time. 03/10/2019-her brain atretic peptide is continuing to improve. I do not believe her wheeze is cardiogenic at this point. I have been trying to give half-normal saline to bring down her BUN but this is likely her baseline for BUN. I will decrease the IV fluids and monitor her fluid balance. I am likely going to discontinue the IV fluids tomorrow. 03/11/2019-the patient is on furosemide, lisinopril and metoprolol with aspirin therapy daily. Her congestive failure seems to be well compensated. (6) Coronary artery disease Is this a current diagnosis for this admission?: Yes Plan: The patient has a history of coronary disease but is not on an STACY inhibitor, aspirin therapy or beta-wan. They may be avoiding beta-blockers because of her COPD. I did start low-dose STACY inhibitor and aspirin 81 mg daily. I will defer statin therapy to her primary care provider. 03/06/2019-continue current regimen. 03/07/2019-no complaints of chest discomfort. Stable on current regimen. 03/08/2019-as above 03/09/2019-still without acute coronary complaints. Continue same regimen. 03/10/2019-still asymptomatic. I would like to achieve good blood pressure control and avoid fluid overload. 03/11/2019-continue current regimen. (7) Hypothyroidism Qualifiers: Hypothyroidism type: acquired Qualified Code(s): E03.9 - Hypothyroidism, unspecified Is this a current diagnosis for this admission?: Yes Plan: Continue levothyroxine 100 mcg daily 03/06/2019-continue levothyroxine. 03/07/2019-no indication that the thyroid is contributing to the clinical picture therefore continue her current 100 mcg daily dose. 03/08/2019-continue current regimen 03/09/2019-no change in levothyroxine. 03/10/2019-continue levothyroxine 03/11/2019-continue levothyroxine
[2019-03-13] MEDS: ASPIRIN 81 MG TABLET, ENT COATED PO SCH (21:43)
[2019-03-13] MEDS: INSULIN GLARGINE,HUM.REC.ANLOG 1,000 UNIT/10 ML VIAL SUBCUT SCH (21:46)
[2019-03-14] MEDS: LEVALBUTEROL HCL NEB 1.25 MG/3 ML AMPUL NEB SCH ×4 (02:09→20:10)
[2019-03-14] MEDS: IPRATROPIUM BROMIDE 0.02% NEB 0.5 MG/2.5 ML AMPUL NEB SCH ×4 (02:09→20:10)
[2019-03-14] MEDS: LEVOTHYROXINE SODIUM 0.05 MG TABLET PO SCH (05:10)
[2019-03-14] MEDS: PANTOPRAZOLE SODIUM 40 MG TABLET.DR PO SCH (05:10)
[2019-03-14] MEDS: BUDESONIDE NEB 0.25 MG/2 ML AMPUL NEB SCH ×2 (07:59→20:11)
[2019-03-14] MEDS: INSULIN LISPRO 100 UNIT/ML 3 ML VIAL SUBCUT SCH ×4 (08:20→22:18)
[2019-03-14] MEDS: FLUTICASONE/VILANTEROL 200-25 MCG/DOSE IH SCH ×2 (09:30→22:20)
[2019-03-14] MEDS: ROFLUMILAST 500 MCG TABLET PO SCH (09:31)
[2019-03-14] MEDS: FUROSEMIDE 40 MG TABLET PO SCH (09:31)
[2019-03-14] MEDS: DILTIAZEM HCL 180 MG CAPSULE.CR PO SCH (09:31)
[2019-03-14] MEDS: METFORMIN HCL 500 MG TABLET PO SCH ×2 (09:31→17:03)
[2019-03-14] MEDS: POTASSIUM CHLORIDE 10 MEQ CAPSULE.ER PO SCH (09:33)
[2019-03-14] MEDS: ENOXAPARIN SODIUM INJ 40 MG/0.4 ML DISP.SYRIN SUBCUT SCH (09:33)
[2019-03-14] MEDS: NYSTATIN TOPICAL POWDER 15 GM TP SCH ×2 (09:33→22:19)
[2019-03-14] MEDS: PREDNISONE 20 MG TABLET PO SCH (09:33)
[2019-03-14] MEDS: LISINOPRIL 5 MG TABLET PO SCH (09:34)
[2019-03-14] MEDS: METOPROLOL SUCCINATE 50 MG TAB.SR.24H PO SCH (09:34)
[2019-03-14] MEDS: SERTRALINE HCL 50 MG TABLET PO SCH (09:34)
--- NOTE | 2019-03-14 12:06 | PDOC PROGRESS REPORT ---
Subjective Progress Note for:: 03/14/19 Subjective:: TRENTON MCCOY is a 73 year old female patient with multiple and complex medical problems including A. fib, diabetes mellitus hypothyroidism, diastolic CHF, hypertension, coronary 3 disease, chronic respiratory failure O2 dependent 20/02 due to COPD, dementia and history of lung and brain CA presented with chief complaint of shortness of breath. Patient reported that she ran out of her albuterol metered-dose inhaler so she started to have worsening of her underlying shortness of breath. She denies fever, chills, chest pain, palpitation or diaphoresis. She does not have any nausea vomiting or abdominal pain. Her initial blood work is unremarkable except for hemoglobin of 9.6 which is not new. Her ABG shows pH of 7.4 PCO2 of 61 and PO2 of 76. 03/03/2019: Patient seen propped up in bed. Patient reports this her shortness of breath is relatively improved. Patient has underlying chronic respiratory failure due to O2 dependent COPD. Her medication reviewed and reconciled. Blood work and vital signs are within normal limits. 03/04/2019: Patient seen propped up in bed and enjoying her breakfast. Patient is still in mild to moderate respiratory distress with audible wheezing. Vital signs and blood works are unremarkable. I will continue the current management. Potential discharge in the next 24 to 48 hours if she remains stable. 03/12/2019: Patient has not been discharged since I admit her last time. I have assumed the attending role today. I seen patient propped up in bed and enjoying her lunch. She reports this her shortness of breath is at its baseline. I discussed the case with social psychologist Farheen who is trying to contact her POA to facilitate her transition to [facility] facility. 03/13/2019: No significant change overnight. I discussed the case with social psychologist and she told me that she has not contacted her POA yet. 03/14/2019: Patient seen resting in bed comfortably. She is awake alert oriented. She is not in pain. She has her baseline respiratory distress. Skip Tender April try to reach her POA multiple times but she does not respond so she consulted Adult Protective Services. Reason For Visit: ACUTE ON CHRONIC HYPOXEMIC HYPOXEMIC HYPERCARBIC Physical Exam Vital Signs: Temp Pulse Resp BP Pulse Ox 97.5 F 85 20 120/52 L 100 03/14/19 11:18 03/14/19 11:18 03/14/19 11:18 03/14/19 11:18 03/14/19 11:18 Intake & Output 03/13/19 03/14/19 03/15/19 06:59 06:59 06:59 Intake Total 240 1900 Output Total 200 Balance 240 1700 Weight 84.9 kg 85 kg General appearance: PRESENT: mild distress Eye exam: PRESENT: conjunctiva pink Mouth exam: PRESENT: moist Neck exam: ABSENT: carotid bruit, JVD, lymphadenopathy, thyromegaly Respiratory exam: PRESENT: decreased breath sounds, rales Cardiovascular exam: PRESENT: irregular rhythm Neurological exam: PRESENT: alert, awake Results Laboratory Results: 03/11/19 05:27 03/11/19 05:27 03/02/19 03/02/19 03/02/19 16:17 16:17 22:15 Creatine Kinase 37 CK-MB (CK-2) 1.27 Troponin I 0.024 0.030 NT-Pro-B Natriuret Pep 634 H 03/06/19 03/07/19 03/08/19 04:07 05:09 06:40 Creatine Kinase CK-MB (CK-2) Troponin I NT-Pro-B Natriuret Pep 2340 H 1760 H 1650 H Impressions: Chest X-Ray 03/06/19 11:10 IMPRESSION: Persistent right hilar opacity, stable from multiple priors. No other evidence of acute cardiopulmonary process Esophagus X-Ray 03/11/19 00:00 IMPRESSION: ESOPHAGEAL DYSMOTILITY WITH MODERATE TERTIARY CONTRACTIONS. OTHERWISE UNREMARKABLE STUDY. Assessment and Plan - Diagnosis (1) Debility and deconditioning Is this a current diagnosis for this admission?: Yes Plan: senior living facility placement (2) Acute and chronic respiratory failure with hypercapnia Is this a current diagnosis for this admission?: Yes Plan: The patient is on 2 L nasal cannula. She is complaining of a congested cough. She reports coughing up greenish sputum. I have placed an order for a sputum culture. I have also added guaifenesin to help thin her secretions. Hypercapnia has improved. 03/06/2019-the patient still has a congested cough. The patient was seen by speech therapy. The patient has significant reflux/regurgitation. Is likely due to an esophageal issue. This does put her at high risk for aspiration. A chest x-ray did not show evidence of aspiration pneumonitis. Her brain atretic peptide was significantly elevated and so I am going to increase her furosemide. I still think she needs free water and so I will change her IV fluids to one half normal saline at 80 mL an hour in an effort to bring down her BUN. Her creatinine is back in the normal range. 03/07/2019-chest x-ray did not show evidence of an infiltrate. She does have the right hilar prominence with her history of lung cancer. No evidence of overt pulmonary edema or pneumonia. Her oxygen saturation levels typically are over 9 6%. I have encouraged the staff to limit oxygen supplementation to keep her pulse ox less than 95%. 03/08/2019-anteriorly she did still exhibit wheezing. She was sleeping and not tachypneic. No increased work of breathing. Despite aggressive regimen she remains with sporadic wheezing. 03/09/2019-she awakens easily today. She sat up for auscultation. She still has occasional wheezing. This certainly could be her baseline. We will continue the same regimen. The plan is for home. Hopefully by Monday. 03/10/2019-she is sitting up in bed and she just finished lunch. There is a visitor sleeping in the chair who did not wake up during this encounter. Upon direct questioning she feels that her respiratory status is still not back to baseline. As she is already on aggressive nebulizer medications I am going to add Daliresp 250 mcg daily with the intention of increasing to 500 mg daily. 03/11/2019-the patient in fact sounds better today. We initiated therapy with Daliresp. Unfortunately I believe she will not get much better due to her end- stage COPD. (3) COPD (chronic obstructive pulmonary disease) Qualifiers: COPD type: COPD with acute exacerbation Qualified Code(s): J44.1 - Chronic obstructive pulmonary disease with (acute) exacerbation Is this a current diagnosis for this admission?: Yes Plan: The patient is on Xopenex scheduled at every 4 hours I will decrease it to every 6 hours. She is also on Brio Ellipta and Spiriva. She has Xopenex available as needed in addition to the scheduled dose. Her home medication list includes Advair and Symbicort. Will need to clarify this with her. She also remains on systemic steroids. 03/06/2019-because of the current condition I am going to change her regimen. She will receive the higher dose of Xopenex with ipratropium nebulizer treatments every 6 hours. Xopenex is available every 3 hours if needed. I will discontinue the Spiriva at this point. She will continue on the systemic steroids. Some of her respiratory failure at this point could be congestive heart failure. 03/07/2019-I will decrease the systemic steroids partly due to this episode of delirium earlier today. In addition I will add Pulmicort so that she will be on Xopenex and ipratropium every 6 hours and Pulmicort every 12 hours. She has Symbicort and Advair listed as home inhaler therapy. I will try and find out which one she is consistently on. She did mention the red top which certainly could be Symbicort. I would like to get her on a home regimen prior to discharge. Her exam is certainly improved today. 03/08/2019-despite Brio Ellipta, Spiriva and systemic steroids the patient still has intermittent wheezes. The patient is also on scheduled Xopenex. It is possible that this is her baseline. We will try to increase activity and see how she tolerates it. Blood gas shows a chronically elevated PCO2 which is also likely her baseline. 03/09/2019-as noted above she is more awake today. Breathing is relaxed but there are still intermittent wheezes. This is likely her baseline. Will discuss with pulmonology regarding any other medications that we might use. 03/10/2019-as noted above I added Daliresp to her regimen of nebulizer treatments and systemic steroids. Will aim for pulse ox of 88 to 92% and taper oxygen accordingly. She still has diffuse wheezing. Continue aggressive regimen. Daliresp was added. We will need to taper the steroids to avoid detrimental adverse effects. (4) Type 2 diabetes mellitus Qualifiers: Diabetes mellitus terminal supervisor insulin use: without terminal supervisor use Is this a current diagnosis for this admission?: Yes Plan: The patient is currently on sliding scale coverage. The steroids have likely increased her glucose. According to her home medication list she was not on m edication prior to this admission. Continue to monitor Accu-Chek glucose readings. 03/06/2019-going to increase the strength of the sliding scale. I will consider adding metformin or an additional oral agent based on the sliding scale requirements. I like to see her Accu-Cheks less than 200 consistently with the majority of readings less than 150. 03/07/2019-I have increased the sliding scale to a more aggressive regimen. I will give it another day or 2 before making any other adjustments. She may need an oral agent added. I think decreasing the steroids will also help. 03/08/2019-I have added metformin 500 mg twice daily. We should start to see a slow improvement in her Accu-Cheks. 03/09/2019-because the Accu-Cheks are still quite high I will increase the metformin to 1000 mg twice daily. 03/10/2019-in addition to the increase in metformin I have added Lantus 10 units daily. She has been getting at least 12 and sometimes 16 units of sliding scale coverage daily. We will continue to monitor Accu-Cheks and adjust her treatment regimen accordingly. 03/11/2019-it was difficult to achieve adequate control with metformin and sliding scale. I did add Lantus 10 units daily. Continue to monitor Accu-Cheks and adjust medications accordingly. (5) Acute on chronic diastolic CHF (congestive heart failure) Is this a current diagnosis for this admission?: Yes Plan: I have increased her diltiazem to 30 mg every 6 hours for combination of borderline tachycardia and her hypertension. I have also added back to her baseline 20 mg of furosemide daily. I have also taken the liberty of starting her on low-dose STACY inhibitor. 03/06/2019-as noted above her BNP is much higher. I have increased her furosemide. IV fluid will be changed to give the patient more free water. 03/07/2019-the patient's BNP is slightly improved with increased furosemide. I have decreased the IV fluids and change to half-normal saline to give the patient more free water. I would like to achieve a negative fluid balance again and see her brain atretic peptide decrease as well. From a clinical standpoint her breathing is easier today. 03/08/2019-the patient is on 40 mg of furosemide. Her baseline dose at home is 20. She still has a positive fluid balance. BUN is still elevated but review of previous admission shows that this is close to her baseline. We will continue her lisinopril as well. 03/09/2019-the patient's net fluid balance is still positive however clinically she is improved and her brain atretic peptide continues to decrease. We will continue the same regimen at this time. 03/10/2019-her brain atretic peptide is continuing to improve. I do not believe her wheeze is cardiogenic at this point. I have been trying to give half-normal saline to bring down her BUN but this is likely her baseline for BUN. I will decrease the IV fluids and monitor her fluid balance. I am likely going to discontinue the IV fluids tomorrow. 03/11/2019-the patient is on furosemide, lisinopril and metoprolol with aspirin therapy daily. Her congestive failure seems to be well compensated. (6) Coronary artery disease Is this a current diagnosis for this admission?: Yes Plan: The patient has a history of coronary disease but is not on an STACY inhibitor, aspirin therapy or beta-wan. They may be avoiding beta-blockers because of her COPD. I did start low-dose STACY inhibitor and aspirin 81 mg daily. I will defer statin therapy to her primary care provider. 03/06/2019-continue current regimen. 03/07/2019-no complaints of chest discomfort. Stable on current regimen. 03/08/2019-as above 03/09/2019-still without acute coronary complaints. Continue same regimen. 03/10/2019-still asymptomatic. I would like to achieve good blood pressure control and avoid fluid overload. 03/11/2019-continue current regimen. (7) Hypothyroidism Qualifiers: Hypothyroidism type: acquired Qualified Code(s): E03.9 - Hypothyroidism, unspecified Is this a current diagnosis for this admission?: Yes Plan: Continue levothyroxine 100 mcg daily 03/06/2019-continue levothyroxine. 03/07/2019-no indication that the thyroid is contributing to the clinical picture therefore continue her current 100 mcg daily dose. 03/08/2019-continue current regimen 03/09/2019-no change in levothyroxine. 03/10/2019-continue levothyroxine 03/11/2019-continue levothyroxine
[2019-03-14] MEDS: ACETAMINOPHEN 325 MG TABLET PO PRN (17:41)
[2019-03-14] MEDS: ALBUTEROL SULFATE HFA (90 MCG/PUFF) 200 PUFF/8.5 GM MDI IH PRN (17:42)
[2019-03-14] MEDS: ASPIRIN 81 MG TABLET, ENT COATED PO SCH (22:18)
[2019-03-14] MEDS: INSULIN GLARGINE,HUM.REC.ANLOG 1,000 UNIT/10 ML VIAL SUBCUT SCH (22:19)
[2019-03-15] MEDS: IPRATROPIUM BROMIDE 0.02% NEB 0.5 MG/2.5 ML AMPUL NEB SCH ×3 (02:06→13:36)
[2019-03-15] MEDS: LEVALBUTEROL HCL NEB 1.25 MG/3 ML AMPUL NEB SCH ×3 (02:06→13:36)
[2019-03-15] MEDS: PANTOPRAZOLE SODIUM 40 MG TABLET.DR PO SCH (06:17)
[2019-03-15] MEDS: LEVOTHYROXINE SODIUM 0.05 MG TABLET PO SCH (06:17)
[2019-03-15] MEDS: BUDESONIDE NEB 0.25 MG/2 ML AMPUL NEB SCH (07:59)
[2019-03-15] MEDS: FLUTICASONE/VILANTEROL 200-25 MCG/DOSE IH SCH (09:13)
[2019-03-15] MEDS: INSULIN LISPRO 100 UNIT/ML 3 ML VIAL SUBCUT SCH ×3 (09:13→15:34)
[2019-03-15] MEDS: METFORMIN HCL 500 MG TABLET PO SCH ×2 (09:13→15:48)
[2019-03-15] MEDS: FUROSEMIDE 40 MG TABLET PO SCH (09:14)
[2019-03-15] MEDS: ROFLUMILAST 500 MCG TABLET PO SCH (09:14)
[2019-03-15] MEDS: DILTIAZEM HCL 180 MG CAPSULE.CR PO SCH (09:14)
[2019-03-15] MEDS: POTASSIUM CHLORIDE 10 MEQ CAPSULE.ER PO SCH (09:15)
[2019-03-15] MEDS: NYSTATIN TOPICAL POWDER 15 GM TP SCH (09:15)
[2019-03-15] MEDS: ENOXAPARIN SODIUM INJ 40 MG/0.4 ML DISP.SYRIN SUBCUT SCH (09:15)
[2019-03-15] MEDS: PREDNISONE 20 MG TABLET PO SCH (09:15)
[2019-03-15] MEDS: METOPROLOL SUCCINATE 50 MG TAB.SR.24H PO SCH (09:16)
[2019-03-15] MEDS: LISINOPRIL 5 MG TABLET PO SCH (09:16)
[2019-03-15] MEDS: SERTRALINE HCL 50 MG TABLET PO SCH (09:16)
--- NOTE | 2019-03-15 11:06 | PDOC PROGRESS REPORT ---
Subjective Progress Note for:: 03/15/19 Subjective:: TRENTON MCCOY is a 73 year old female patient with multiple and complex medical problems including A. fib, diabetes mellitus hypothyroidism, diastolic CHF, hypertension, coronary 3 disease, chronic respiratory failure O2 dependent 20/02 due to COPD, dementia and history of lung and brain CA presented with chief complaint of shortness of breath. Patient reported that she ran out of her albuterol metered-dose inhaler so she started to have worsening of her underlying shortness of breath. She denies fever, chills, chest pain, palpitation or diaphoresis. She does not have any nausea vomiting or abdominal pain. Her initial blood work is unremarkable except for hemoglobin of 9.6 which is not new. Her ABG shows pH of 7.4 PCO2 of 61 and PO2 of 76. 03/03/2019: Patient seen propped up in bed. Patient reports this her shortness of breath is relatively improved. Patient has underlying chronic respiratory failure due to O2 dependent COPD. Her medication reviewed and reconciled. Blood work and vital signs are within normal limits. 03/04/2019: Patient seen propped up in bed and enjoying her breakfast. Patient is still in mild to moderate respiratory distress with audible wheezing. Vital signs and blood works are unremarkable. I will continue the current management. Potential discharge in the next 24 to 48 hours if she remains stable. 03/12/2019: Patient has not been discharged since I admit her last time. I have assumed the attending role today. I seen patient propped up in bed and enjoying her lunch. She reports this her shortness of breath is at its baseline. I discussed the case with social worker psychiatric Farheen who is trying to contact her POA to facilitate her transition to group home facility. 03/13/2019: No significant change overnight. I discussed the case with social worker psychiatric and she told me that she has not contacted her POA yet. 03/14/2019: Patient seen resting in bed comfortably. She is awake alert oriented. She is not in pain. She has her baseline respiratory distress. Coutierier April try to reach her POA multiple times but she does not respond so she consulted Adult Protective Services. 03/15/2019: No adverse event overnight. Patient is resting in bed comfortably. No new complaints. Awaiting response from her POA. Reason For Visit: ACUTE ON CHRONIC HYPOXEMIC HYPOXEMIC HYPERCARBIC Physical Exam Vital Signs: Temp Pulse Resp BP Pulse Ox 98.2 F 74 18 100/53 L 99 03/15/19 07:08 03/15/19 07:59 03/15/19 07:59 03/15/19 07:08 03/15/19 07:59 Intake & Output 03/14/19 03/15/19 03/16/19 06:59 06:59 06:59 Intake Total 1900 1020 Output Total 200 1750 Balance 1700 -730 Weight 85 kg 85.4 kg General appearance: PRESENT: mild distress Head exam: PRESENT: atraumatic Respiratory exam: PRESENT: wheezes Cardiovascular exam: PRESENT: irregular rhythm Neurological exam: PRESENT: alert, awake Results Laboratory Results: 03/11/19 05:27 03/11/19 05:27 03/02/19 03/02/19 03/02/19 16:17 16:17 22:15 Creatine Kinase 37 CK-MB (CK-2) 1.27 Troponin I 0.024 0.030 NT-Pro-B Natriuret Pep 634 H 03/06/19 03/07/19 03/08/19 04:07 05:09 06:40 Creatine Kinase CK-MB (CK-2) Troponin I NT-Pro-B Natriuret Pep 2340 H 1760 H 1650 H Impressions: Chest X-Ray 03/06/19 11:10 IMPRESSION: Persistent right hilar opacity, stable from multiple priors. No other evidence of acute cardiopulmonary process Esophagus X-Ray 03/11/19 00:00 IMPRESSION: ESOPHAGEAL DYSMOTILITY WITH MODERATE TERTIARY CONTRACTIONS. OTH ERWISE UNREMARKABLE STUDY. Assessment and Plan - Diagnosis (1) Debility and deconditioning Is this a current diagnosis for this admission?: Yes Plan: [facility] facility placement (2) Acute and chronic respiratory failure with hypercapnia Is this a current diagnosis for this admission?: Yes Plan: The patient is on 2 L nasal cannula. She is complaining of a congested cough. She reports coughing up greenish sputum. I have placed an order for a sputum culture. I have also added guaifenesin to help thin her secretions. Hypercapnia has improved. 03/06/2019-the patient still has a congested cough. The patient was seen by speech therapy. The patient has significant reflux/regurgitation. Is likely due to an esophageal issue. This does put her at high risk for aspiration. A chest x-ray did not show evidence of aspiration pneumonitis. Her brain atretic peptide was significantly elevated and so I am going to increase her furosemide. I still think she needs free water and so I will change her IV fluids to one half normal saline at 80 mL an hour in an effort to bring down her BUN. Her creatinine is back in the normal range. 03/07/2019-chest x-ray did not show evidence of an infiltrate. She does have the right hilar prominence with her history of lung cancer. No evidence of overt pulmonary edema or pneumonia. Her oxygen saturation levels typically are over 96%. I have encouraged the staff to limit oxygen supplementation to keep her pulse ox less than 95%. 03/08/2019-anteriorly she did still exhibit wheezing. She was sleeping and not tachypneic. No increased work of breathing. Despite aggressive regimen she remains with sporadic wheezing. 03/09/2019-she awakens easily today. She sat up for auscultation. She still has occasional wheezing. This certainly could be her baseline. We will continue the same regimen. The plan is for home. Hopefully by Monday. 03/10/2019-she is sitting up in bed and she just finished lunch. There is a visitor sleeping in the chair who did not wake up during this encounter. Upon direct questioning she feels that her respiratory status is still not back to baseline. As she is already on aggressive nebulizer medications I am going to add Daliresp 250 mcg daily with the intention of increasing to 500 mg daily. 03/11/2019-the patient in fact sounds better today. We initiated therapy with Daliresp. Unfortunately I believe she will not get much better due to her end- stage COPD. (3) COPD (chronic obstructive pulmonary disease) Qualifiers: COPD type: COPD with acute exacerbation Qualified Code(s): J44.1 - Chronic obstructive pulmonary disease with (acute) exacerbation Is this a current diagnosis for this admission?: Yes Plan: The patient is on Xopenex scheduled at every 4 hours I will decrease it to every 6 hours. She is also on Brio Ellipta and Spiriva. She has Xopenex available as needed in addition to the scheduled dose. Her home medication list includes Advair and Symbicort. Will need to clarify this with her. She also remains on systemic steroids. 03/06/2019-because of the current condition I am going to change her regimen. She will receive the higher dose of Xopenex with ipratropium nebulizer treatments every 6 hours. Xopenex is available every 3 hours if needed. I will discontinue the Spiriva at this point. She will continue on the systemic steroids. Some of her respiratory failure at this point could be congestive heart failure. 03/07/2019-I will decrease the systemic steroids partly due to this episode of delirium earlier today. In addition I will add Pulmicort so that she will be on Xopenex and ipratropium every 6 hours and Pulmicort every 12 hours. She has Symbicort and Advair listed as home inhaler therapy. I will try and find out which one she is consistently on. She did mention the red top which certainly could be Symbicort. I would like to get her on a home regimen prior to discharge. Her exam is certainly improved today. 03/08/2019-despite Brio Ellipta, Spiriva and systemic steroids the patient still has intermittent wheezes. The patient is also on scheduled Xopenex. It is possible that this is her baseline. We will try to increase activity and see how she tolerates it. Blood gas shows a chronically elevated PCO2 which is also likely her baseline. 03/09/2019-as noted above she is more awake today. Breathing is relaxed but there are still intermittent wheezes. This is likely her baseline. Will discuss with pulmonology regarding any other medications that we might use. 03/10/2019-as noted above I added Daliresp to her regimen of nebulizer treatments and systemic steroids. Will aim for pulse ox of 88 to 92% and taper oxygen accordingly. She still has diffuse wheezing. Continue aggressive regimen. Daliresp was added. We will need to taper the steroids to avoid detrimental adverse effects. (4) Type 2 diabetes mellitus Qualifiers: Diabetes mellitus hog raiser insulin use: without hog raiser use Is this a current diagnosis for this admission?: Yes Plan: The patient is currently on sliding scale coverage. The steroids have likely increased her glucose. According to her home medication list she was not on medication prior to this admission. Continue to monitor Accu-Chek glucose readings. 03/06/2019-going to increase the strength of the sliding scale. I will consider adding metformin or an additional oral agent based on the sliding scale requirements. I like to see her Accu-Cheks less than 200 consistently with the majority of readings less than 150. 03/07/2019-I have increased the sliding scale to a more aggressive regimen. I will give it another day or 2 before making any other adjustments. She may need an oral agent added. I think decreasing the steroids will also help. 03/08/2019-I have added metformin 500 mg twice daily. We should start to see a slow improvement in her Accu-Cheks. 03/09/2019-because the Accu-Cheks are still quite high I will increase the metformin to 1000 mg twice daily. 03/10/2019-in addition to the increase in metformin I have added Lantus 10 units daily. She has been getting at least 12 and sometimes 16 units of sliding scale coverage daily. We will continue to monitor Accu-Cheks and adjust her treatment regimen accordingly. 03/11/2019-it was difficult to achieve adequate control with metformin and sliding scale. I did add Lantus 10 units daily. Continue to monitor Accu-Cheks and adjust medications accordingly. (5) Acute on chronic diastolic CHF (congestive heart failure) Is this a current diagnosis for this admission?: Yes Plan: I have increased her diltiazem to 30 mg every 6 hours for combination of borderline tachycardia and her hypertension. I have also added back to her baseline 20 mg of furosemide daily. I have also taken the liberty of starting her on low-dose STACY inhibitor. 03/06/2019-as noted above her BNP is much higher. I have increased her furosemide. IV fluid will be changed to give the patient more free water. 03/07/2019-the patient's BNP is slightly improved with increased furosemide. I have decreased the IV fluids and change to half-normal saline to give the patient more free water. I would like to achieve a negative fluid balance again and see her brain atretic peptide decrease as well. From a clinical standpoint her breathing is easier today. 03/08/2019-the patient is on 40 mg of furosemide. Her baseline dose at home is 20. She still has a positive fluid balance. BUN is still elevated but review of previous admission shows that this is close to her baseline. We will continue her lisinopril as well. 03/09/2019-the patient's net fluid balance is still positive however clinically she is improved and her brain atretic peptide continues to decrease. We will continue the same regimen at this time. 03/10/2019-her brain atretic peptide is continuing to improve. I do not believe her wheeze is cardiogenic at this point. I have been trying to give half-normal saline to bring down her BUN but this is likely her baseline for BUN. I will decrease the IV fluids and monitor her fluid balance. I am likely going to discontinue the IV fluids tomorrow. 03/11/2019-the patient is on furosemide, lisinopril and metoprolol with aspirin therapy daily. Her congestive failure seems to be well compensated. (6) Coronary artery disease Is this a current diagnosis for this admission?: Yes Plan: The patient has a history of coronary disease but is not on an STACY inhibitor, aspirin therapy or beta-wan. They may be avoiding beta-blockers because of her COPD. I did start low-dose STACY inhibitor and aspirin 81 mg daily. I will defer statin therapy to her primary care provider. 03/06/2019-continue current regimen. 03/07/2019-no complaints of chest discomfort. Stable on current regimen. 03/08/2019-as above 03/09/2019-still without acute coronary complaints. Continue same regimen. 03/10/2019-still asymptomatic. I would like to achieve good blood pressure control and avoid fluid overload. 03/11/2019-continue current regimen. (7) Hypothyroidism Qualifiers: Hypothyroidism type: acquired Qualified Code(s): E03.9 - Hypothyroidism, unspecified Is this a current diagnosis for this admission?: Yes Plan: Continue levothyroxine 100 mcg daily 03/06/2019-continue levothyroxine. 03/07/2019-no indication that the thyroid is contributing to the clinical picture therefore continue her current 100 mcg daily dose. 03/08/2019-continue current regimen 03/09/2019-no change in levothyroxine. 03/10/2019-continue levothyroxine 03/11/2019-continue levothyroxine
--- NOTE | 2019-03-15 13:26 | PDOC DISCHARGE SUMMARY ---
General - Admit/Disc Date/PCP Admission Date/Primary Care Provider: 03/02/19 18:12 ARASELI AGUILAR MD Discharge Date: 03/15/19 - Discharge Diagnosis (1) Debility and deconditioning Is this a current diagnosis for this admission?: Yes (2) Acute and chronic respiratory failure with hypercapnia Is this a current diagnosis for this admission?: Yes (3) COPD (chronic obstructive pulmonary disease) Is this a current diagnosis for this admission?: Yes (4) Type 2 diabetes mellitus Is this a current diagnosis for this admission?: Yes (5) Acute on chronic diastolic CHF (congestive heart failure) Is this a current diagnosis for this admission?: Yes (6) Coronary artery disease Is this a current diagnosis for this admission?: Yes (7) Hypothyroidism Is this a current diagnosis for this admission?: Yes - Additional Information Resuscitation Status: Full Code Discharge Diet: Cardiac, Diabetic Discharge Activity: Activity As Tolerated, Balance Activity w/Rest, Weigh Daily Prescriptions: Transition To Wellness [Transition to Wellness Med Delivery (M-F ONLY)] 1 each MC ASDIR PRN #1 each PRN Reason: Home Medications: Albuterol Sulfate [Proair HFA Inhalation Aerosol 8.5 gm MDI] 2 puff IH Q6HP PRN 02/08/19 Fexofenadine HCl [Jialene Allergy] 180 mg PO DAILYP PRN 02/08/19 Fluticasone/Salmeterol [Advair 250-50 Diskus 14 Dose/Diskus] 1 puff IH Q12 02/08/19 Hydroxyzine HCl [Atarax 25 mg Tablet] 25 mg PO HSP PRN 02/08/19 Levothyroxine Sodium [Synthroid 0.05 mg Tablet] 0.1 mg PO Q6AM 02/08/19 Potassium Chloride [Klor-Con M10] 10 meq PO DAILY 02/08/19 Sertraline HCl [Zoloft] 25 mg PO DAILY 02/08/19 Tiotropium [place] [Spiriva Handihaler 5 Cap/Kit (18 Mcg/Cap)] 1 puff IH DAILY 02/08/19 Diltiazem HCl [Cardizem 30 mg Tablet] 30 mg PO Q8 #90 tablet 02/12/19 Prednisone [Deltasone 20 mg Tablet] 20 mg PO BID 5 Days #10 tablet 02/12/19 Budesonide/Formoterol Fumarate [Symbicort Hfa 160-4.5 Mcg Inhaler 6 gm] 2 puff IH Q12 03/02/19 Furosemide [Lasix 20 mg Tablet] 20 mg PO QAM 03/02/19 Ibuprofen [Motrin 800 mg Tablet] 800 mg PO Q8HP PRN 03/02/19 Transition To Wellness [Transition to Wellness Med Delivery (M-F ONLY)] 1 each ASDIR PRN #1 each 03/09/19 History of Present Illness History of Present Illness: TRENTON MCCOY is a 73 year old female patient with multiple and complex medical problems including A. fib, diabetes mellitus hypothyroidism, diastolic CHF, hypertension, coronary 3 disease, chronic respiratory failure O2 dependent 24/7 due to COPD, dementia and history of lung and brain CA presented with chief complaint of shortness of breath. Patient reported that she ran out of her albuterol metered-dose inhaler so she started to have worsening of her underlying shortness of breath. She denies fever, chills, chest pain, palpita tion or diaphoresis. She does not have any nausea vomiting or abdominal pain. Her initial blood work is unremarkable except for hemoglobin of 9.6 which is not new. Her ABG shows pH of 7.4 PCO2 of 61 and PO2 of 76. Hospital Course Hospital Course: TRENTON MCCOY is a 73 year old female patient with multiple and complex medical problems including A. fib, diabetes mellitus hypothyroidism, diastolic CHF, hypertension, coronary 3 disease, chronic respiratory failure O2 dependent 24/7 due to COPD, dementia and history of lung and brain CA presented with chief complaint of shortness of breath. Patient reported that she ran out of her albuterol metered-dose inhaler so she started to have worsening of her underlying shortness of breath. She denies fever, chills, chest pain, palpitation or diaphoresis. She does not have any nausea vomiting or abdominal pain. Her initial blood work is unremarkable except for hemoglobin of 9.6 which is not new. Her ABG shows pH of 7.4 PCO2 of 61 and PO2 of 76. 03/03/2019: Patient seen propped up in bed. Patient reports this her shortness of breath is relatively improved. Patient has underlying chronic respiratory failure due to O2 dependent COPD. Her medication reviewed and reconciled. Blood work and vital signs are within normal limits. 03/04/2019: Patient seen propped up in bed and enjoying her breakfast. Patient is still in mild to moderate respiratory distress with audible wheezing. Vital signs and blood works are unremarkable. I will continue the current management. Potential discharge in the next 24 to 48 hours if she remains stable. 03/12/2019: Patient has not been discharged since I admit her last time. I have assumed the attending role today. I seen patient propped up in bed and enjoying her lunch. She reports this her shortness of breath is at its baseline. I di scussed the case with social organization professor Farheen who is trying to contact her POA to facilitate her transition to custodial facility. 03/13/2019: No significant change overnight. I discussed the case with social organization professor and she told me that she has not contacted her POA yet. 03/14/2019: Patient seen resting in bed comfortably. She is awake alert oriented. She is not in pain. She has her baseline respiratory distress. Movie Critic April try to reach her POA multiple times but she does not respond so she consulted Adult Protective Services. 03/15/2019: No adverse event overnight. Patient is resting in bed comfortably. No new complaints. Finally, the social organization professor able to get hold of her daughter who is the POA for the patient and she states, she do not want her to go to rehab and patient going to be discharged to home. Patient does not have new complaint and her respiratory status is at its baseline. I will continue all her home medications. Physical Exam Vital Signs: Temp Pulse Resp BP Pulse Ox 98.2 F 74 18 100/53 L 99 03/15/19 07:08 03/15/19 07:59 03/15/19 07:59 03/15/19 07:08 03/15/19 07:59 Intake & Output 03/14/19 03/15/19 03/16/19 06:59 06:59 06:59 Intake Total 1900 1020 Output Total 200 1750 Balance 1700 -730 Weight 85 kg 85.4 kg General appearance: PRESENT: mild distress Eye exam: PRESENT: conjunctiva pink Mouth exam: PRESENT: moist Neck exam: ABSENT: carotid bruit, JVD, lymphadenopathy, thyromegaly Respiratory exam: PRESENT: wheezes - Occasional Cardiovascular exam: PRESENT: irregular rhythm Neurological exam: PRESENT: alert, awake Results Laboratory Results: 03/11/19 05:27 03/11/19 05:27 03/02/19 03/02/19 03/02/19 16:17 16:17 22:15 Creatine Kinase 37 CK-MB (CK-2) 1.27 Troponin I 0.024 0.030 NT-Pro-B Natriuret Pep 634 H 03/06/19 03/07/19 03/08/19 04:07 05:09 06:40 Creatine Kinase CK-MB (CK-2) Troponin I NT-Pro-B Natriuret Pep 2340 H 1760 H 1650 H Impressions: Chest X-Ray 03/06/19 11:10 IMPRESSION: Persistent right hilar opacity, stable from multiple priors. No other evidence of acute cardiopulmonary process Esophagus X-Ray 03/11/19 00:00 IMPRESSION: ESOPHAGEAL DYSMOTILITY WITH MODERATE TERTIARY CONTRACTIONS. OTHERWISE UNREMARKABLE STUDY. Qualifiers - * PATIENT BEING DISCHARGED WITH ANY OF THE FOLLOWING DIAGNOSIS: No Acute Heart Failure - Is this a Heart Failure Patient?: No LVEF < 40%?: No- if no continue to question #3 3. Anticoagulant therapy for permanect/persistent/paraoxysmal Afib or Aflutter: N/A
[2019-03-15 14:39] VITALS: BP 117/56
== END 2019-03-15 16:31 | disposition home health service (06) | DRG 190 ==
LOC: ER 12:45 → EH 18:12 → 3W 19:50
PROVIDERS: ADMIT Internal Medicine; ATTEND Internal Medicine
DX: J44.1 Chronic obstructive pulmonary disease with (acute) exacerbation (principal); J96.22 Acute and chronic respiratory failure with hypercapnia; I50.33 Acute on chronic diastolic (congestive) heart failure; F05 Delirium due to known physiological condition; I48.91 Unspecified atrial fibrillation; I11.0 Hypertensive heart disease with heart failure; Z99.81 Dependence on supplemental oxygen; F03.90 Unspecified dementia, unspecified severity, without behavioral disturbance, psychotic disturbance, mood disturbance, and anxiety; D64.9 Anemia, unspecified; I45.10 Unspecified right bundle-branch block; E11.9 Type 2 diabetes mellitus without complications; I25.10 Atherosclerotic heart disease of native coronary artery without angina pectoris; E03.9 Hypothyroidism, unspecified; K21.9 Gastro-esophageal reflux disease without esophagitis; M19.90 Unspecified osteoarthritis, unspecified site; M10.9 Gout, unspecified; F32.9 Major depressive disorder, single episode, unspecified; R53.81 Other malaise; R00.0 Tachycardia, unspecified; I25.2 Old myocardial infarction; Z85.118 Personal history of other malignant neoplasm of bronchus and lung; Z85.841 Personal history of malignant neoplasm of brain; Z87.891 Personal history of nicotine dependence; Z88.1 Allergy status to other antibiotic agents; Z88.3 Allergy status to other anti-infective agents; Z88.0 Allergy status to penicillin; Z80.1 Family history of malignant neoplasm of trachea, bronchus and lung; Z83.6 Family history of other diseases of the respiratory system
CPT/HCPCS: 36415; 36600; 51702; 71045; 71046; 74220; 80048; 80053; 82550; 82553; 82803; 82962; 83735; 83880; 84484; 85025; 85027; 93005; 93010; 94640; 99285; J1650; J1815; J1940; J2920; J3490; J7512; J7614; J7620; J7626

== ENCOUNTER 2019-04-02 23:25 | Emergency (ER) | payer MEDICARE, OTHER ==
[2019-04-02] MEDS ORDERED: IPRATROPIUM/ALBUTEROL 0.5-2.5 MG/3 ML AMPUL NEB ONE (23:51)
--- NOTE | 2019-04-02 23:52 | ER Document Report ---
ED Respiratory Problem - General Stated Complaint: SHORTNESS OF BREATH Time Seen by Provider: 04/02/19 23:39 Primary Care Provider: ARASELI AGUILAR MD [Primary Care Provider] - Follow up as needed Notes: Patient is a 73-year-old female that comes emergency department for chief complaint of worsening difficulty breathing for the past 2 days. She states she has developed a cough with productive green sputum as well. She denies fever. She has a history of COPD and reports that she wears 3 L of oxygen nasal cannula 20/02. She also has a history of diastolic CHF, A. fib, type 2 diabetes. Medications include 20 mg of Lasix daily, Cardizem, she is not on a blood thinner. Patient comes by EMS, she was given 1 DuoNeb treatment and one albuterol treatment. Patient still reports shortness of breath and wheezing. She denies chest pain, vomiting, or any other symptoms at this time. Patient lives at home with her family. TRAVEL OUTSIDE OF THE [place] IN LAST 30 DAYS: No - Related Data Allergies/Adverse Reactions: azithromycin Allergy (Verified 12/30/18 17:18) cephalexin Allergy (Verified 12/30/18 17:18) Penicillins Allergy (Verified 12/30/18 17:18) amoxicillin [Amoxicillin] Adverse Reaction (Verified 12/30/18 17:18) visual hallucinations erythromycin base [Erythromycin Base] Adverse Reaction (Verified 12/30/18 17:18) visual hallucinations Potassium Clavulanate * [From Augmentin] Adverse Reaction (Verified 12/30/18 17:18) visual hallucinations Past Medical History - General Information source: Patient - Social History Smoking Status: Unknown if Ever Smoked Frequency of alcohol use: None Drug Abuse: None Lives with: Family Family History: COPD, Malignancy - Lung cancer - Past Medical History Cardiac Medical History: Reports: Hx Atrial Fibrillation, Hx Congestive Heart Failure, Hx Coronary Artery Disease, Hx Heart Attack, Hx Hypertension Denies: Hx DVT, Hx Hypercholesterolemia, Hx Pulmonary Embolism Pulmonary Medical History: Reports: Hx Asthma, Hx Bronchitis, Hx COPD, Hx Pneumonia, Hx Respiratory Failure - Chronic respiratory failure Denies: Hx Sleep Apnea, Hx Tuberculosis Neurological Medical History: Denies: Hx Seizures Endocrine Medical History: Reports: Hx Diabetes Mellitus Type 2, Hx Hypothyroidism. 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 Denies: Hx Cirrhosis, Hx Hepatitis, Hx Ulcer Musculoskeletal Medical History: Reports Hx Arthritis, Reports Hx Gout, Denies Hx Multiple Sclerosis, Reports Hx Musculoskeletal Deformity, Reports Hx Musculoskeletal Trauma Skin Medical History: Denies Hx Eczema, Denies Hx Psoriasis Psychiatric Medical History: Reports: Hx Dementia, Hx Depression Denies: Hx Bipolar Disorder, Hx Schizophrenia Infectious Medical History: Reports: Hx C-Diff. Denies: Hx Hepatitis Past Surgical History: Reports: Hx Cholecystectomy, Hx Orthopedic Surgery - Foot surgery, Other - cataract bilateral - Immunizations Immunizations up to date: Yes Hx Diphtheria, Pertussis, Tetanus Vaccination: Yes Hx Pneumococcal Vaccination: 08/30/12 Review of Systems - Review of Systems Constitutional: No symptoms reported EENT: No symptoms reported Cardiovascular: No symptoms reported Respiratory: See HPI Gastrointestinal: No symptoms reported Genitourinary: No symptoms reported Female Genitourinary: No symptoms reported Musculoskeletal: No symptoms reported Skin: No symptoms reported Hematologic/Lymphatic: No symptoms reported Neurological/Psychological: No symptoms reported Physical Exam - Vital signs Vitals: Resp Pulse Ox 22 H 100 04/02/19 23:34 04/02/19 23:34 - Notes Notes: GENERAL: Alert, interacts well. No acute distress. HEAD: Normocephalic, atraumatic. EYES: Pupils equal, round, and reactive to light. Extraocular movements intact. ENT: Oral mucosa moist, tongue midline. Oropharynx unremarkable. Airway patent. Nares patent, no nasal septal hematoma NECK: Full range of motion. Supple. Trachea midline. LUNGS: Scattered expiratory wheezes, occasional congested cough, borderline tachypnea. No rales. No respiratory distress. HEART: Regular rate and rhythm. No murmur ABDOMEN: Soft, non-tender. Non-distended. EXTREMITIES: Moves all 4 extremities spontaneously. No edema, normal radial and dorsalis pedis pulses bilaterally. No cyanosis. BACK: no cervical, thoracic, lumbar midline tenderness. No saddle anesthesia, normal distal neurovascular exam. Moves all extremities in full range of motion. NEUROLOGICAL: Alert and oriented x3. Normal speech. Cranial nerves II through XII grossly intact. PSYCH: Normal affect, normal mood. SKIN: Warm, dry, normal turgor. No rashes or lesions noted. Course - Re-evaluation Re-evalutation: Initially patient with borderline tachypnea and scattered wheezes. No rales. No lower extremity edema. She is not hypoxic on my evaluation, she is borderline tachycardic. She is conversational and speaks in complete sentences. She does not appear to be in any distress. CBC shows anemia with hemoglobin of 8.8, however this is consistent with her trends recently without significant change. No leukocytosis. Chemistry nonspe cific, troponin negative. Venous blood gas does show hypoxia but no acidosis and CO2 is not significantly changed from prior. However I found that patient had the ABG performed on room air, patient is supposed to be wearing 3 L nasal cannula at all times. With the 3 L nasal cannula patient has no hypoxia. BNP is in the 700s, chest x-ray does not show failure but does show increased abnormality at the right hilar area which the radiologist recommended a CT for. I discussed this with patient and she states agreement to rule out pneumonia or other concerning findings. CT of the chest shows increased lung markings in that area from inflammation but no consolidation, mass, or concerning finding otherwise. On reevaluation patient states she has at her baseline, she states she feels much improved. Tachycardia has resolved. She states she feels good enough to go home. I did discuss the patient with Dr. Beverly. Patient discharged home with prednisone, follow-up instructions, return precautions. These were discussed in detail. Patient states understanding and agreement. Stable at time of discharge. - Vital Signs Vital signs: Temp Pulse Resp BP Pulse Ox 15 168/97 H 99 04/03/19 05:01 04/03/19 05:01 04/03/19 05:01 - Laboratory Result Diagrams: 04/02/19 23:48 04/02/19 23:48 Laboratory results interpreted by me: 04/02/19 04/02/19 04/02/19 23:48 23:48 23:48 RBC 2.67 L Hgb 8.8 L Hct 26.2 L MCV 98 H RDW 16.0 H Band Neutrophils % 2 L Carbonic Acid ABG pCO2 ABG pO2 ABG HCO3 ABG Total CO2 ABG O2 Saturation Chloride 96 L Carbon Dioxide 39 H Glucose 149 H NT-Pro-B Natriuret Pep 753 H 04/02/19 23:56 RBC Hgb Hct MCV RDW Band Neutrophils % Carbonic Acid 1.71 H ABG pCO2 56.7 H ABG pO2 50.4 L ABG HCO3 37.5 H ABG Total CO2 39.2 H ABG O2 Saturation 86.0 L Chloride Carbon Dioxide Glucose NT-Pro-B Natriuret Pep - EKG Interpretation by Me Additional EKG results interpreted by me: EKG shows sinus tachycardia at a rate of 112, right bundle branch block, normal axis. No T wave inversions or ST segment changes in consecutive leads. There is some artifact. Discharge - Discharge Clinical Impression: Shortness of breath, COPD exacerbation, Productive cough Condition: Stable Disposition: HOME, SELF-CARE Additional Instructions: Your work-up does not show any concerning findings at this time. Despite the pr oductive cough no evidence of pneumonia is seen. The CAT scan of your chest also does not show pneumonia or concerning findings. This appears to be inflammation of your upper airway, COPD exacerbation. Take prednisone as prescribed. Continue home treatments and remember to use your home oxygen. Follow-up with your primary care provider closely. Return if you worsen including increased difficulty breathing, fever, chest pain, vomiting, or any other concerning or worsening symptoms. Prescriptions: Prednisone [Deltasone 20 mg Tablet] 3 tab PO DAILY 5 Days #15 tablet Referrals: ARASELI AGUILAR MD [Primary Care Provider] - Follow up as needed
[2019-04-03 00:11] LABS: ARTERIAL BLOOD BASE EXCESS 11.4 mmol/L; ARTERIAL BLOOD H2CO3 1.71 mmol/L (1.05-1.35); ARTERIAL BLOOD HCO3 37.5 mmol/L (20-24); ARTERIAL BLOOD PCO2 56.7 mmHg (35-45); ARTERIAL BLOOD PH 7.44 (7.35-7.45); ARTERIAL BLOOD PO2 50.4 mmHg (80-100); ARTERIAL BLOOD TOTAL CO2 39.2 mmol/L (21-25)
[2019-04-03 00:15] LABS: HEMATOCRIT 26.2 % (36.0-47.0); HEMOGLOBIN 8.8 g/dL (12.0-15.5); MEAN CORPUSCULAR HEMOGLOBIN 32.9 pg (27.0-33.4); MEAN CORPUSCULAR HGB CONC 33.6 g/dL (32.0-36.0); MEAN CORPUSCULAR VOLUME 98 fl (80-97); PLATELET COUNT 435 10^3/uL (150-450); RED BLOOD COUNT 2.67 10^6/uL (3.72-5.28); WHITE BLOOD COUNT 8.5 10^3/uL (4.0-10.5)
[2019-04-03 00:15] LABS: ARTERIAL BLOOD FIO2 ROOM AIR
[2019-04-03 00:21] LABS: BLOOD UREA NITROGEN 13 mg/dL (7-20); CARBON DIOXIDE 39 mmol/L (22-30); CHLORIDE 96 mmol/L (98-107); GLUCOSE 149 mg/dL (75-110); POTASSIUM 4.4 mmol/L (3.6-5.0)
[2019-04-03] MEDS: MAGNESIUM SULFATE/D5W 1 GM/100 ML RTUPB IV SCH ×2 (00:24→02:29)
[2019-04-03 00:26] LABS: ANION GAP 5 (5-19)
[2019-04-03 00:31] LABS: NT PRO BNP 753 pg/mL (<450)
[2019-04-03 00:35] LABS: TROPONIN I < 0.012 ng/mL
[2019-04-03 00:56] LABS: ABSOLUTE LYMPHOCYTES# (MANUAL) 1.9 10^3/uL (0.5-4.7); ABSOLUTE MONOCYTES # (MANUAL) 0.7 10^3/uL (0.1-1.4); BAND NEUTROPHILS % (MANUAL) 2 % (3-5); BASOPHILS % (MANUAL) 0 % (0-2); EOSINOPHILS % (MANUAL) 3 % (0-6); LYMPHOCYTES % (MANUAL) 22 % (13-45); MONOCYTES % (MANUAL) 8 % (3-13); SEGMENTED NEUTROPHILS % (MAN) 65 % (42-78); TOTAL CELLS COUNTED 100
[2019-04-03 01:02] LABS: ANISOCYTOSIS 1+; POLYCHROMASIA SLIGHT
[2019-04-03 01:03] LABS: PLATELET COMMENT ADEQUATE; TEAR DROP CELLS SLIGHT
--- NOTE | 2019-04-03 01:08 | RADIOLOGY REPORT (SQ) ---
CLINICAL HISTORY: productive cough, shortness of breath COMPARISON: February 25, 2019. Right hilum is enlarged. TECHNIQUE: XR CHEST 1 VIEW 04/02/2019 11:48 PM CDT FINDINGS: Cardiac silhouette is normal in size. Lungs are hyperinflated. There is no pleural effusion. There is no pneumothorax. There are no acute osseous findings. IMPRESSION: Enlarging right hilum. Recommend chest CT.
--- NOTE | 2019-04-03 04:01 | RADIOLOGY REPORT (SQ) ---
CLINICAL HISTORY: ENLARGING RIGHT HILUM SEEN ON CXR. CREAT 0.89 COMPARISON: 06/09/2015. TECHNIQUE: CT CHEST WITH IV CONTRAST on 04/03/2019 1:30 AM CDT. MIPS reconstructions were generated. This exam was performed according to our departmental dose-optimization program, which includes automated exposure control, adjustment of the mA and/or kV according to patient size and/or use of iterative reconstruction technique. MIP images were generated. FINDINGS: Thoracic aorta is normal in course and caliber without aneurysm or dissection. Pulmonary arteries are adequately opacified without acute or chronic filling defects. The heart is normal in size. There is no pericardial effusion. Intrathoracic lymph nodes are not enlarged. There is a small right pleural effusion. Central airways are patent. There is extensive chronic right perihilar scarring. There is no focal mass. There is mild upper lung centrilobular emphysema. In the upper abdomen, cholecystectomy was performed. There is a small incompletely visualized right renal cyst. There is pneumobilia. There are no acute osseous findings. No suspicious bony lesions. IMPRESSION: Chronic postinflammatory changes in the right perihilar region. No evidence of mass or definite focal consolidation.
[2019-04-03 05:13] VITALS: BP 168/97
--- NOTE | 2019-04-04 14:23 | EKG REPORT ---
SEVERITY:- ABNORMAL ECG - SINUS TACHYCARDIA RIGHT BUNDLE BRANCH BLOCK : Confirmed by: Mercedes Solomon 04-Apr-2019 14:22:17
== END 2019-04-03 06:09 | disposition home or self-care (01) ==
LOC: ER 23:25
DX: J44.1 Chronic obstructive pulmonary disease with (acute) exacerbation (principal); R06.02 Shortness of breath; I50.9 Heart failure, unspecified; E11.9 Type 2 diabetes mellitus without complications; Z88.3 Allergy status to other anti-infective agents; Z99.81 Dependence on supplemental oxygen; Z88.0 Allergy status to penicillin
CPT/HCPCS: 93005; 94640; 99285; 96365; 96366; 36415; 82803; 85025; 80048; 84484; 83880; 71045; 71260; 93010; J3475; A9270; J7620

== ENCOUNTER 2019-04-05 12:50 | Inpatient (IN) | payer MEDICARE ==
[2019-04-05] MEDS ORDERED: NORMAL SALINE 1000 ML 1,000 ML IV ONE (14:00)
[2019-04-05 14:11] LABS: VENOUS BLOOD BASE EXCESS 8.2 mmol/L; VENOUS BLOOD HCO3 35.6 mmol/L (20-32); VENOUS BLOOD PH 7.34 (7.30-7.42)
--- NOTE | 2019-04-05 14:11 | ER Document Report ---
ED Respiratory Problem - General Chief Complaint: Shortness Of Breath Stated Complaint: COUGH Time Seen by Provider: 04/05/19 13:59 Primary Care Provider: ARASELI AGUILAR MD [Primary Care Provider] - Follow up as needed Notes: Patient is a 73-year-old female who comes in with a productive cough and trouble breathing. She has a history of COPD and has been admitted before for similar presentations. Received nebulizer treatments prior to arrival. Patient denies any pain anywhere. States that she has had trouble breathing since yesterday. TRAVEL OUTSIDE OF THE [place] IN LAST 30 DAYS: No - Related Data Allergies/Adverse Reactions: azithromycin Allergy (Verified 12/30/18 17:18) cephalexin Allergy (Verified 12/30/18 17:18) Penicillins Allergy (Verified 12/30/18 17:18) amoxicillin [Amoxicillin] Adverse Reaction (Verified 12/30/18 17:18) visual hallucinations erythromycin base [Erythromycin Base] Adverse Reaction (Verified 12/30/18 17:18) visual hallucinations Potassium Clavulanate * [From Augmentin] Adverse Reaction (Verified 12/30/18 17:18) visual hallucinations Past Medical History - Social History Smoking Status: Former Smoker Family History: COPD, Malignancy - Lung cancer Patient has suicidal ideation: No Patient has homicidal ideation: No - Past Medical History Cardiac Medical History: Reports: Hx Atrial Fibrillation, Hx Congestive Heart Failure, Hx Coronary Artery Disease, Hx Heart Attack, Hx Hypertension Denies: Hx DVT, Hx Hypercholesterolemia, Hx Pulmonary Embolism Pulmonary Medical History: Reports: Hx Asthma, Hx Bronchitis, Hx COPD, Hx Pneumonia, Hx Respiratory Failure - Chronic respiratory failure Denies: Hx Sleep Apnea, Hx Tuberculosis Neurological Medical History: Denies: Hx Seizures Endocrine Medical History: Reports: Hx Diabetes Mellitus Type 2, Hx Hypothyroidism. 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 Denies: Hx Cirrhosis, Hx Hepatitis, Hx Ulcer Musculoskeletal Medical History: Reports Hx Arthritis, Reports Hx Gout, Denies Hx Multiple Sclerosis, Reports Hx Musculoskeletal Deformity, Reports Hx Musculoskeletal Trauma Skin Medical History: Denies Hx Eczema, Denies Hx Psoriasis Psychiatric Medical History: Reports: Hx Dementia, Hx Depression Denies: Hx Bipolar Disorder, Hx Schizophrenia Infectious Medical History: Reports: Hx C-Diff. Denies: Hx Hepatitis Past Surgical History: Reports: Hx Cholecystectomy, Hx Orthopedic Surgery - Foot surgery, Other - cataract bilateral - Immunizations Immunizations up to date: Yes Hx Diphtheria, Pertussis, Tetanus Vaccination: Yes Hx Pneumococcal Vaccination: 08/30/12 Review of Systems - Review of Systems Constitutional: No symptoms reported EENT: No symptoms reported Cardiovascular: No symptoms reported Respiratory: See HPI, Cough, Short of breath, Wheezing Gastrointestinal: No symptoms reported Genitourinary: No symptoms reported Female Genitourinary: No symptoms reported Musculoskeletal: No symptoms reported Skin: No symptoms reported Hematologic/Lymphatic: No symptoms reported Neurological/Psychological: No symptoms reported Physical Exam - Vital signs Vitals: Temp 98.3 F 04/05/19 13:03 Interpretation: Normal, Hypoxic, Tachypneic - General General appearance: Appears well, Alert In distress: Mild - HEENT Head: Normocephalic, Atraumatic Eyes: Normal Pupils: PERRL - Respiratory Respiratory status: Respiratory distress, Tachypnea Chest status: Nontender Breath sounds: Rales, Wheezing Chest palpation: Normal - Cardiovascular Rhythm: Regular Heart sounds: Normal auscultation Murmur: No - Abdominal Inspection: Normal Distension: No distension Bowel sounds: Normal Tenderness: Nontender Organomegaly: No organomegaly - Back Back: Normal, Nontender - Extremities General upper extremity: Normal inspection, Nontender, Normal color, Normal ROM, Normal temperature General lower extremity: Normal inspection, Nontender, Normal color, Normal ROM, Normal temperature, Normal weight bearing. No: Sabine's sign - Neurological Neuro grossly intact: Yes Cognition: Normal Orientation: AAOx4 Raquel Coma Scale Eye Opening: Spontaneous [place] Coma Scale Verbal: Oriented Raquel Coma Scale Motor: Obeys Commands Raquel Coma Scale Total: 15 Speech: Normal Motor strength normal: LUE, RUE, LLE, RLE Sensory: Normal - Psychological Associated symptoms: Normal affect, Normal mood - Skin Skin Temperature: Warm Skin Moisture: Dry Skin Color: Normal Course - Re-evaluation Re-evalutation: 04/05/19 15:42 Patient is a 73-year-old female with a history of COPD who comes in with difficulty breathing and a productive cough. Patient is a white count of 10.8 with 1% bands. She is allergic to penicillin. Recent admission within the last 3 months. Patient has a sputum that has grown Pseudomonas in the past. Antibiotics were initiated after culture sent of meropenem, Levaquin and vancomycin. Placed on BiPAP for slight elevation of CO2 and patient being drowsy. Chest x-ray clear but given presentation will treat for pneumonia. Discussed with the hospitalist, Dr. Moore who is agreeable to admission to IMCU. Stable at the time of admission. - Vital Signs Vital signs: Temp Pulse Resp BP Pulse Ox 98.3 F 22 H 100 04/05/19 13:03 04/05/19 14:38 04/05/19 14:38 - Laboratory Result Diagrams: 04/05/19 13:45 04/05/19 13:45 Laboratory results interpreted by me: 04/05/19 04/05/19 04/05/19 13:45 13:45 13:45 WBC 10.8 H RBC 2.80 L Hgb 9.0 L Hct 27.6 L MCV 99 H RDW 17.1 H Seg Neuts % (Manual) 87 H Band Neutrophils % 1 L Lymphocytes % (Manual) 5 L Metamyelocytes % 2 H Abs Neuts (Manual) 9.7 H VBG pCO2 68.2 H* VBG HCO3 35.6 H Carbon Dioxide 35 H Glucose 138 H Total Protein 5.7 L Albumin 3.0 L Discharge - Discharge Clinical Impression: HCAP (healthcare-associated pneumonia), Respiratory distress, COPD exacerbation Condition: Stable Disposition: ADMITTED INPATIENT Admitting Provider: Oscar (Hospitalist) Unit Admitted: IMCU Referrals: ARASELI AGUILAR MD [Primary Care Provider] - Follow up as needed
[2019-04-05 14:12] LABS: VENOUS BLOOD PCO2 68.2 mmHg (35-63)
[2019-04-05 14:15] LABS: INTERNATIONAL RATION (INR) 0.96; PROTHROMBIN TIME 12.7 SEC (11.4-15.4)
[2019-04-05 14:18] LABS: ALKALINE PHOSPHATASE 68 U/L (38-126); ANION GAP 6 (5-19); ASPARTATE AMINO TRANSFERASE 27 U/L (14-36); BILIRUBIN,DIRECT 0.2 mg/dL (0.0-0.4); BILIRUBIN,TOTAL 0.3 mg/dL (0.2-1.3); BLOOD UREA NITROGEN 17 mg/dL (7-20); CALCIUM 8.7 mg/dL (8.4-10.2); CARBON DIOXIDE 35 mmol/L (22-30); CHLORIDE 100 mmol/L (98-107); GLUCOSE 138 mg/dL (75-110); POTASSIUM 3.8 mmol/L (3.6-5.0); TOTAL PROTEIN 5.7 g/dL (6.3-8.2)
[2019-04-05 14:22] LABS: HEMATOCRIT 27.6 % (36.0-47.0); MEAN CORPUSCULAR HEMOGLOBIN 32.2 pg (27.0-33.4); MEAN CORPUSCULAR HGB CONC 32.7 g/dL (32.0-36.0); MEAN CORPUSCULAR VOLUME 99 fl (80-97); PLATELET COUNT 401 10^3/uL (150-450); RED CELL DISTRIBUTION WIDTH 17.1 % (11.5-14.0); WHITE BLOOD COUNT 10.8 10^3/uL (4.0-10.5)
[2019-04-05] MEDS ORDERED: IPRATROPIUM/ALBUTEROL 0.5-2.5 MG/3 ML AMPUL NEB ONE (14:22)
[2019-04-05] MEDS ORDERED: METHYLPREDNISOLONE INJ 125 MG/2 ML SDV IV ONE (14:26)
[2019-04-05] MEDS: MAGNESIUM SULFATE/D5W 1 GM/100 ML RTUPB IV SCH ×2 (14:38→15:35)
[2019-04-05] MEDS ORDERED: LEVOFLOXACIN 750 MG/D5W RTU 750 MG/150 ML RTUPB IV ONE (14:40)
[2019-04-05 14:42] LABS: ABSOLUTE LYMPHOCYTES# (MANUAL) 0.5 10^3/uL (0.5-4.7); ABSOLUTE MONOCYTES # (MANUAL) 0.4 10^3/uL (0.1-1.4); BAND NEUTROPHILS % (MANUAL) 1 % (3-5); BASOPHILS % (MANUAL) 1 % (0-2); EOSINOPHILS % (MANUAL) 0 % (0-6); LYMPHOCYTES % (MANUAL) 5 % (13-45); METAMYELOCYTES % (MANUAL) 2 % (0); MONOCYTES % (MANUAL) 4 % (3-13); SEGMENTED NEUTROPHILS % (MAN) 87 % (42-78); TOTAL CELLS COUNTED 100
[2019-04-05 14:43] LABS: ANISOCYTOSIS 1+; OVALOCYTES 1+; PLATELET COMMENT ADEQUATE; POIKILOCYTOSIS 1+; POLYCHROMASIA SLIGHT; TEAR DROP CELLS SLIGHT
[2019-04-05] MEDS ORDERED: MEROPENEM 1 GM VIAL IV ONE (15:06)
[2019-04-05] MEDS ORDERED: VANCOMYCIN HCL INJ 1000 MG VIAL IV ONE (15:06)
--- NOTE | 2019-04-05 15:07 | RADIOLOGY REPORT (SQ) ---
EXAM DESCRIPTION: CHEST SINGLE VIEW COMPLETED DATE/TIME: 04/05/2019 2:56 pm REASON FOR STUDY: SOB COMPARISON: 04/03/2019 EXAM PARAMETERS: NUMBER OF VIEWS: One view. TECHNIQUE: Single frontal radiographic view of the chest acquired. RADIATION DOSE: NA LIMITATIONS: None. FINDINGS: LUNGS AND PLEURA: No opacities, masses or pneumothorax. No pleural effusion. MEDIASTINUM AND HILAR STRUCTURES: Prominent right hilum seen once again. HEART AND VASCULAR STRUCTURES: Heart normal in size. Normal vasculature. BONES: No acute findings. HARDWARE: None in the chest. OTHER: No other significant finding. IMPRESSION: NO ACUTE RADIOGRAPHIC FINDING IN THE CHEST. TECHNICAL DOCUMENTATION: JOB ID: [id number] [employer]- All Rights Reserved Reading location - IP/workstation name: [email or web address]
[2019-04-05] MEDS ORDERED: OXYCODONE-ACETAMINOPHEN 5-325 MG TABLET PO PRN (15:30)
[2019-04-05] MEDS ORDERED: ACETAMINOPHEN 650 MG SUPP.RECT PR PRN (15:30)
[2019-04-05] MEDS ORDERED: ALBUTEROL SULFATE 0.042% NEB (1.25 MG/3 ML) AMPUL NEB PRN (15:39)
[2019-04-05] MEDS ORDERED: DEXTROSE 50%-WATER 25 GM/50 ML DISP.SYRIN IV PRN ×2 (15:43)
[2019-04-05] MEDS ORDERED: DEXTROSE 40% GEL 15 GM TUBE PO PRN ×2 (15:43)
[2019-04-05] MEDS ORDERED: GLUCAGON,HUMAN RECOMB 1 MG INJ IM PRN (15:43)
--- NOTE | 2019-04-05 15:44 | Progress Note Acknowledgement ---
Progress Note Acknowledgement Progess Note Acknowledgement: I, the undersigned member of the medical staff with appropriate privileges and with supervisory authority over [Kaiser Becerra], a dependent practice allied health professional, acknowledge that I have reviewed the progress notes entered on this patient, and in my professional judgment believe that the assessment made and/or any care evidenced was appropriate
[2019-04-05] MEDS ORDERED: VANCOMYCIN HCL 0 MG in DEXTROSE 5%-WATER 250 ML IV NR (15:45)
--- NOTE | 2019-04-05 15:56 | PDOC H&P ---
History of Present Illness Admission Date/PCP: 04/05/2019 ARASELI AGUILAR MD Patient complains of: Shortness of breath, patient on BiPAP at this time with hypercapnic respiratory failure unable to talk in full sentences. History of Present Illness: TRENTON MCCOY is a 73 year old female who presented to the ER in respiratory distress. Patient was found to have hypercapnic rest kim failure on BiPAP at this time. Upon entering room patient unable to speak to me and anything but 1- 2 word increments. Patient was obviously distressed and could not get get any further information at this time from her. Past Medical History Cardiac Medical History: Reports: Atrial Fibrillation, Congestive Heart Failure, Coronary Artery Disease, Myocardial Infarction, Hypertension Denies: DVT, Hyperlipidema, Pulmonary Embolism Pulmonary Medical History: Reports: Asthma, Bronchitis, Chronic Obstructive Pul monary Disease (COPD), Pneumonia, Respiratory Failure - Chronic respiratory failure Denies: Sleep Apnea, Tuberculosis Neurological Medical History: Denies: Seizures Endocrine Medical History: Reports: Diabetes Mellitus Type 2, Hypothyroidism Denies: Diabetes Mellitus Type 1, Hyperthyroidism Renal/ Medical History: Denies: End Stage Renal Disease Malignancy Medical History: Reports: Brain Cancer - Lung cancer with brain metastases, 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 GI Medical History: Reports: Gastroesophageal Reflux Disease Denies: Cirrhosis, Hepatitis Musculoskeltal Medical History: Reports: Arthritis, Gout Skin Medical History: Denies: Eczema, Psoriasis Psychiatric Medical History: Reports: Dementia, Depression Denies: Bipolar Disorder Hematology: Reports: Anemia, Bleeding Tendencies Infectious Medical History: Reports: Clostridium Difficile Past Surgical History Past Surgical History: Reports: Cholecystectomy, Orthopedic Surgery - Foot surgery, Other - cataract bilateral Social History Information Source[facility] - Patient unable to speak at this time secondary to respiratory failure and BiPAP Smoking Status: Former Smoker Frequency of Alcohol Use: None Hx Recreational Drug Use: No Drugs: None Hx Prescription Drug Abuse: No - Advance Directive Resuscitation Status: Full Code Family History Family History: COPD, Malignancy - Lung cancer Parental Family History Reviewed: No - Unable to assess as patient is amatory failure on BiPAP Children Family History Reviewed: NA Sibling(s) Family History Reviewed.: NA Medication/Allergy Allergies/Adverse Reactions: azithromycin Allergy (Verified 12/30/18 17:18) cephalexin Allergy (Verified 12/30/18 17:18) Penicillins Allergy (Verified 12/30/18 17:18) amoxicillin [Amoxicillin] Adverse Reaction (Verified 12/30/18 17:18) visual hallucinations erythromycin base [Erythromycin Base] Adverse Reaction (Verified 12/30/18 17:18) visual hallucinations Potassium Clavulanate * [From Augmentin] Adverse Reaction (Verified 12/30/18 17:18) visual hallucinations Review of Systems ROS unobtainable: Other - Unable to assess at this time as patient is on BiPAP unable to speak for any length with a respiratory distress. Physical Exam Vital Signs: Temp Pulse Resp BP Pulse Ox 98.3 F 22 H 100 04/05/19 13:03 04/05/19 14:38 04/05/19 14:38 Intake & Output 04/04/19 04/05/19 04/06/19 06:59 06:59 06:59 Intake Total 1095 Balance 1095 Weight 78.925 kg General appearance: PRESENT: mild distress, obese Head exam: PRESENT: atraumatic, normocephalic Eye exam: PRESENT: conjunctiva pink, EOMI, PERRLA. ABSENT: scleral icterus Ear exam: PRESENT: normal external ear exam Mouth exam: PRESENT: moist, tongue midline Neck exam: ABSENT: carotid bruit, JVD, lymphadenopathy, thyromegaly Respiratory exam: PRESENT: decreased breath sounds, rhonchi, symmetrical, tachypnea, wheezes, other - On BiPAP Pulses: PRESENT: +1 pedal pulses bilateral Vascular exam: PRESENT: normal capillary refill GI/Abdominal exam: PRESENT: normal bowel sounds, soft. ABSENT: distended, guarding, mass, organolmegaly, rebound, tenderness Extremities exam: PRESENT: full ROM. ABSENT: clubbing, pedal edema Neurological exam: PRESENT: alert, awake Psychiatric exam: PRESENT: anxious Skin exam: PRESENT: dry, intact, warm. ABSENT: cyanosis, rash Results Laboratory Results: 04/05/19 13:45 04/05/19 13:45 04/05/19 04/05/19 04/05/19 13:45 13:45 13:45 WBC 10.8 H RBC 2.80 L Hgb 9.0 L Hct 27.6 L MCV 99 H MCH 32.2 MCHC 32.7 RDW 17.1 H Plt Count 401 Seg Neutrophils % Not Reportable VBG pH VBG pCO2 VBG HCO3 VBG Base Excess Sodium 140.6 Potassium 3.8 Chloride 100 Carbon Dioxide 35 H Anion Gap 6 BUN 17 Creatinine 0.80 Est GFR ( Amer) > 60 Glucose 138 H Lactic Acid 0.7 Calcium 8.7 Total Bilirubin 0.3 AST 27 Alkaline Phosphatase 68 Total Protein 5.7 L Albumin 3.0 L 04/05/19 13:45 WBC RBC Hgb Hct MCV MCH MCHC RDW Plt Count Seg Neutrophils % VBG pH 7.34 VBG pCO2 68.2 H* VBG HCO3 35.6 H VBG Base Excess 8.2 Sodium Potassium Chloride Carbon Dioxide Anion Gap BUN Creatinine Est GFR ( Amer) Glucose Lactic Acid Calcium Total Bilirubin AST Alkaline Phosphatase Total Protein Albumin 04/05/19 13:45 Troponin I 0.025 Impressions: Chest X-Ray 04/05/19 00:00 IMPRESSION: NO ACUTE RADIOGRAPHIC FINDING IN THE CHEST. Assessment and Plan - Diagnosis (1) Acute and chronic respiratory failure with hypercapnia Is this a current diagnosis for this admission?: Yes Plan: 04/05/2019-multifactorial in nature. Patient does have an acute exacerbation of chronic COPD as well as a possible hospital-acquired pneumonia. Patient on BiPAP at this time we will continue this therapy, I will treat pneumonia with IV vancomycin per pharmacy and meropenem 1 g IV q. 8. I will treat COPD exacerbation with bronchodilators, IV steroids and inhaled corticosteroids. I will repeat her ABG in the a.m. (2) Acute exacerbation of chronic obstructive airways disease Is this a current diagnosis for this admission?: Yes Plan: 04/05/2019-patient with long-standing history of COPD. Patient in mild distress this time unable to speak with full sentences on BiPAP. ABG shows a hypercapnic rest kim failure. I have her on BiPAP we will repeat ABG in the a.m. I will treat her COPD with corticosteroids, bronchodilators, IV steroids and she will on antibiotics as well for a possible pneumonia. (3) Healthcare-associated pneumonia Is this a current diagnosis for this admission?: Yes Plan: 04/05/2019-possibly a pneumonia present with this presentation. Patient will get vancomycin, Merrem and Levaquin in the ER I will continue vancomycin and Merrem. Obtaining blood cultures as well as sputum cultures. We will do other supportive measures as needed including oxygen therapy. 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 Patient will also be on high-dose steroids IV so I will place her on sliding scale insulin before meals and at bedtime and I will also obtain a A1c at this time. (5) Anemia Qualifiers: Anemia type: unspecified type Qualified Code(s): D64.9 - Anemia, unspecified Is this a current diagnosis for this admission?: Yes Plan: 04/05/2019-chronic, stable. CBC in a.m. - Time Time Spent with patient: 35 or more minutes - Inpatient Certification Based on my medical assessment, after consideration of the patient's comorbidities, presenting symptoms, or acuity I expect that the services needed warrant INPATIENT care.: Yes I certify that my determination is in accordance with my understanding of Medicare's requirements for reasonable and necessary INPATIENT services [42 CFR 412.3e].: Yes Medical Necessity: Other - IV antibiotics, IV steroids, BiPAP
[2019-04-05] MEDS ORDERED: ALBUTEROL SULFATE 0.083% NEB 2.5 MG/3 ML AMPUL NEB SCH (16:00)
[2019-04-05] MEDS: METHYLPREDNISOLONE INJ 125 MG/2 ML SDV IV SCH ×2 (16:12→21:46)
[2019-04-05] MEDS: INSULIN REG, HUMAN 100 UNIT/ML 3 ML VIAL (PYX) SUBCUT SCH ×2 (16:58→21:46)
[2019-04-05] MEDS: BUDESONIDE NEB 0.5 MG/2 ML AMPUL NEB SCH ×2 (17:13→20:37)
[2019-04-05] MEDS ORDERED: MEROPENEM 1 GM VIAL IV SCH (18:00)
[2019-04-05] MEDS ORDERED: IPRATROPIUM/ALBUTEROL 0.5-2.5 MG/3 ML AMPUL NEB SCH (18:00)
[2019-04-05 18:57] LABS: APPEARANCE,URINE SLIGHTLY-CLOUDY; BILIRUBIN,URINE NEGATIVE (NEGATIVE); COLOR,URINE STRAW; GLUCOSE, URINE 150 mg/dL (NEGATIVE); KETONES,URINE NEGATIVE (NEGATIVE); LEUKOCYTE ESTERASE,URINE MODERATE (NEGATIVE); NITRITE,URINE POSITIVE (NEGATIVE); PROTEIN,URINE NEGATIVE (NEGATIVE); UROBILINOGEN,URINE NEGATIVE mg/dL (<2.0)
[2019-04-05] MEDS ORDERED: LEVALBUTEROL HCL NEB 0.63 MG/3 ML AMPUL NEB PRN (19:36)
[2019-04-05] MEDS: MEROPENEM 1 GM in NORMAL SALINE 50 ML IV SCH (21:45)
[2019-04-05] MEDS: HEPARIN SOD (PORCINE) 5,000 UNIT/ML 1 ML VIAL SUBCUT SCH (21:47)
[2019-04-06] MEDS: LEVALBUTEROL HCL NEB 1.25 MG/3 ML AMPUL NEB SCH ×3 (00:35→16:20)
[2019-04-06] MEDS: IPRATROPIUM BROMIDE 0.02% NEB 0.5 MG/2.5 ML AMPUL NEB SCH ×3 (00:35→16:20)
[2019-04-06] MEDS: METHYLPREDNISOLONE INJ 125 MG/2 ML SDV IV SCH ×3 (05:03→22:14)
[2019-04-06] MEDS: MEROPENEM 1 GM in NORMAL SALINE 50 ML IV SCH ×2 (05:03→13:22)
[2019-04-06] MEDS: HEPARIN SOD (PORCINE) 5,000 UNIT/ML 1 ML VIAL SUBCUT SCH ×3 (05:04→22:15)
[2019-04-06 06:00] LABS: HEMATOCRIT 23.4 % (36.0-47.0); MEAN CORPUSCULAR HEMOGLOBIN 32.6 pg (27.0-33.4); MEAN CORPUSCULAR HGB CONC 33.8 g/dL (32.0-36.0); MEAN CORPUSCULAR VOLUME 96 fl (80-97); PLATELET COUNT 328 10^3/uL (150-450); RED BLOOD COUNT 2.43 10^6/uL (3.72-5.28); RED CELL DISTRIBUTION WIDTH 16.3 % (11.5-14.0); WHITE BLOOD COUNT 9.5 10^3/uL (4.0-10.5)
[2019-04-06 06:09] LABS: ANION GAP 5 (5-19); BLOOD UREA NITROGEN 21 mg/dL (7-20); CALCIUM 8.4 mg/dL (8.4-10.2); CARBON DIOXIDE 35 mmol/L (22-30); CHLORIDE 99 mmol/L (98-107); GLUCOSE 147 mg/dL (75-110); PHOSPHORUS 3.2 mg/dL (2.5-4.5); POTASSIUM 4.2 mmol/L (3.6-5.0)
[2019-04-06 06:31] LABS: ABSOLUTE LYMPHOCYTES# (MANUAL) 0.2 10^3/uL (0.5-4.7); ABSOLUTE MONOCYTES # (MANUAL) 0.3 10^3/uL (0.1-1.4); ANISOCYTOSIS 1+; BAND NEUTROPHILS % (MANUAL) 4 % (3-5); BASOPHILS % (MANUAL) 0 % (0-2); EOSINOPHILS % (MANUAL) 0 % (0-6); LYMPHOCYTES % (MANUAL) 2 % (13-45); MONOCYTES % (MANUAL) 3 % (3-13); POLYCHROMASIA 1+; SEGMENTED NEUTROPHILS % (MAN) 91 % (42-78); TOTAL CELLS COUNTED 100
[2019-04-06 06:32] LABS: PLATELET COMMENT ADEQUATE
[2019-04-06 06:33] LABS: HEMOGLOBIN 7.9 g/dL (12.0-15.5)
[2019-04-06 07:08] LABS: ARTERIAL BLOOD BASE EXCESS 8.8 mmol/L; ARTERIAL BLOOD FIO2 3L; ARTERIAL BLOOD HCO3 34.6 mmol/L (20-24); ARTERIAL BLOOD O2 SATURATION 97.5 % (94-98); ARTERIAL BLOOD PCO2 56.4 mmHg (35-45); ARTERIAL BLOOD PH 7.41 (7.35-7.45); ARTERIAL BLOOD PO2 100.6 mmHg (80-100); ARTERIAL BLOOD TOTAL CO2 36.4 mmol/L (21-25)
[2019-04-06] MEDS: INSULIN REG, HUMAN 100 UNIT/ML 3 ML VIAL (PYX) SUBCUT SCH ×4 (07:51→22:14)
[2019-04-06] MEDS: BUDESONIDE NEB 0.5 MG/2 ML AMPUL NEB SCH ×2 (09:00→20:00)
[2019-04-06] MEDS: POTASSIUM CHLORIDE 10 MEQ CAPSULE.ER PO SCH (09:02)
[2019-04-06] MEDS: SERTRALINE HCL 50 MG TABLET PO SCH (09:02)
[2019-04-06] MEDS: FUROSEMIDE 20 MG TABLET PO SCH (09:02)
[2019-04-06] MEDS ORDERED: VANCOMYCIN HCL 750 MG in DEXTROSE 5%-WATER 250 ML IV SCH (10:00)
[2019-04-06] MEDS ORDERED: (PENDING PHARMACY ID) (Sertraline Hcl [Zoloft] 25 MG) PO SCH (10:00)
[2019-04-06] MEDS: ONDANSETRON HCL INJ/PF 4 MG/2 ML SDV IV PRN (10:46)
[2019-04-06] MEDS: DILTIAZEM HCL 30 MG TABLET PO SCH ×2 (13:25→22:14)
--- NOTE | 2019-04-06 14:57 | Progress Note Acknowledgement ---
Progress Note Acknowledgement Progess Note Acknowledgement: I, the undersigned member of the medical staff with appropriate privileges and with supervisory authority over Chika Hurt, a [facility] allied health professional, acknowledge that I have reviewed the progress notes entered on this patient, and in my professional judgment believe that the assessment made and/or any care evidenced was appropriate
--- NOTE | 2019-04-06 15:17 | PDOC PROGRESS REPORT ---
Subjective Progress Note for:: 04/06/19 Subjective:: The patient is a 73-year-old female, well-known to our service, with a past medical history significant for COPD, chronic respiratory failure, CHF, atrial fibrillation, CAD, [place], hypertension, DM 2, hypothyroidism, lung cancer, GERD,Dementia, depression, medication and BiPAP noncompliance who is frequently admitted for acute on chronic respiratory failure secondary to COPD and/or CHF exacerbations who was admitted 04/05/2019 for acute on chronic respiratory failure with hypercapnia secondary to COPD exacerbation and a healthcare associated pneumonia. The patient was seen on morning rounds. She is found resting in bed comfortably on supplemental oxygen via nasal cannula. There was a BiPAP machine at bedside; however, patient admits that she did not use the BiPAP much overnight. She is awake, alert and oriented x4, intermittently forgetful/confused and at her baseline mentation. She remembers me from the last time I took care of her (early spring) and tells me that she is currently living at home with her son, Jason, and his girlfriend who provide her care. She is speaking full sentences and appears to be quite comfortable. She does report an occasional productive cough. Otherwise she denies fever, chills, chest pain, palpitations, dyspnea at rest, abdominal pain, nausea, vomiting, diarrhea, dysuria, urinary frequency or urgency. She has no questions or concerns at this time. No concerns per nursing. Reason For Visit: ACUTE ON CHRONIC HYPERCAPNIC RESPIRATORY FAILURE, Physical Exam Vital Signs: Temp Pulse Resp BP Pulse Ox 98.3 F 107 H 18 145/74 H 98 04/06/19 10:49 04/06/19 14:00 04/06/19 10:49 04/06/19 10:49 04/06/19 10:49 Intake & Output 04/05/19 04/06/19 04/07/19 06:59 06:59 06:59 Intake Total 5 734 Output Total 350 400 Balance 1675 334 Weight 82.8 kg General appearance: PRESENT: no acute distress, obese, well-developed, well- nourished Head exam: PRESENT: atraumatic, normocephalic Eye exam: PRESENT: conjunctiva pink, EOMI, PERRLA. ABSENT: scleral icterus Ear exam: PRESENT: normal external ear exam Mouth exam: PRESENT: moist, tongue midline Teeth exam: PRESENT: poor dentation Neck exam: ABSENT: carotid bruit, JVD, lymphadenopathy, thyromegaly Respiratory exam: PRESENT: prolonged expiratory phas, symmetrical, unlabored, wheezes - Throughout, other - Supplemental oxygen via nasal cannula. ABSENT: rales, rhonchi Cardiovascular exam: PRESENT: RRR, +S1, +S2. ABSENT: diastolic murmur, rubs, systolic murmur Pulses: PRESENT: normal dorsalis pedis pul Vascular exam: PRESENT: normal capillary refill GI/Abdominal exam: PRESENT: normal bowel sounds, soft. ABSENT: distended, guarding, mass, organolmegaly, rebound, tenderness Rectal exam: PRESENT: deferred Gentrourinary exam: PRESENT: indwelling catheter Extremities exam: PRESENT: full ROM. ABSENT: calf tenderness, clubbing, pedal edema Neurological exam: PRESENT: alert, awake, oriented to person, oriented to place, oriented to time, oriented to situation, CN II-XII grossly intact, other - Slightly forgetful/confused; at baseline. ABSENT: motor sensory deficit Psychiatric exam: PRESENT: appropriate affect, normal mood. ABSENT: homicidal ideation, suicidal ideation Skin exam: PRESENT: dry, intact, warm. ABSENT: cyanosis, rash Results Laboratory Results: 04/06/19 04:46 04/06/19 04:46 04/05/19 04/06/19 04/06/19 18:25 04:46 04:46 WBC 9.5 RBC 2.43 L Hgb 7.9 L Hct 23.4 L MCV 96 MCH 32.6 MCHC 33.8 RDW 16.3 H Plt Count 328 Seg Neutrophils % Not Reportable Carbonic Acid HCO3/H2CO3 Ratio ABG pH ABG pCO2 ABG pO2 ABG HCO3 ABG O2 Saturation ABG Base Excess FiO2 Sodium 138.5 Potassium 4.2 Chloride 99 Carbon Dioxide 35 H Anion Gap 5 BUN 21 H Creatinine 0.81 Est GFR ( Amer) > 60 Glucose 147 H Calcium 8.4 Phosphorus 3.2 Magnesium 2.3 Urine Color STRAW Urine Appearance SLIGHTLY-CLOUDY Urine pH 6.0 Ur Specific [place] 1.010 Urine Protein NEGATIVE Urine Glucose (UA) 150 H Urine Ketones NEGATIVE Urine Blood NEGATIVE Urine Nitrite POSITIVE H Ur Leukocyte Esterase MODERATE H Urine WBC (Auto) 53 Urine RBC (Auto) 3 04/06/19 06:49 WBC RBC Hgb Hct MCV MCH MCHC RDW Plt Count Seg Neutrophils % Carbonic Acid 1.70 H HCO3/H2CO3 Ratio 20:1 ABG pH 7.41 ABG pCO2 56.4 H ABG pO2 100.6 H ABG HCO3 34.6 H ABG O2 Saturation 97.5 ABG Base Excess 8.8 FiO2 3L Sodium Potassium Chloride Carbon Dioxide Anion Gap BUN Creatinine Est GFR ( Amer) Glucose Calcium Phosphorus Magnesium Urine Color Urine Appearance Urine pH Ur Specific [place] Urine Protein Urine Glucose (UA) Urine Ketones Urine Blood Urine Nitrite Ur Leukocyte Esterase Urine WBC (Auto) Urine RBC (Auto) 04/05/19 13:45 Troponin I 0.025 Impressions: Chest X-Ray 04/05/19 00:00 IMPRESSION: NO ACUTE RADIOGRAPHIC FINDING IN THE CHEST. Assessment and Plan - Diagnosis (1) Acute exacerbation of chronic obstructive airways disease Is this a current diagnosis for this admission?: Yes Plan: Improved; continues to have expiratory wheezing throughout. However, now comfortably at rest while on baseline oxygen. She is speaking full sentences wi thout increased work of breathing. ABG this morning is reassuring; demonstrates chronic/compensated respiratory acidosis Chest x-ray on admission was negative for acute findings. Patient does have wheezing throughout with a productive cough. We will continue supplemental oxygen and BiPAP as needed to meet saturations greater than 89%. Continue scheduled and as needed nebulizer treatments. Continue twice daily Pulmicort nebulizer treatment. Continue IV Solu-Medrol. Mucinex twice daily. Encourage pulmonary toilet with incentive spirometer and flutter valve to bedside. Although likely futile given the patient's disinterest in the past, will consult palliative care for goals of care discussion Discharge planning is consulted. (2) Healthcare-associated pneumonia Is this a current diagnosis for this admission?: Yes Plan: Ruled out. Healthcare associated pneumonia highly unlikely given the patient's rapid resolution of symptoms. Admitting provider was concerned for possible healthcare associated pneumonia given the patient's presenting symptoms. Blood and sputum cultures are pending. She was empirically placed on IV vancomycin and Meropenem. Patient remains afebrile, leukocytosis has resolved, and clinically improved. Although the patient continues to have wheezing throughout, she is returned to her baseline oxygen requirement, speaking full sentences, and is comfortable while at rest. Therefore, will discontinue IV anti-biotics today. We will continue supplemental oxygen and pulmonary toilet as above. (3) Acute and chronic respiratory failure with hypercapnia Is this a current diagnosis for this admission?: Yes Plan: Multifactorial secondary to chronic respiratory failure, COPD, CHF, STEPHANIE with BiPAP noncompliance, with some concern for healthcare associated pneumonia. ABG this morning is reassuring; demonstrates chronic/compensated respiratory acidosis Chest x-ray on admission was negative for acute findings. Patient does have wheezing throughout with a productive cough. Supplemental oxygen, BiPAP, scheduled and as needed nebulizers. Remaining evaluation management as above. (4) Anemia Qualifiers: Anemia type: unspecified type Qualified Code(s): D64.9 - Anemia, unspecified Is this a current diagnosis for this admission?: Yes Plan: Chronic anemia; likely secondary to poor nutritional status. Hemoglobin 9.0 on admission; at baseline. Has trended down to 7.9 following 2.5 L IV fluid/antibody therapy. No indications for active bleeding at this time. Start multivitamin with iron supplementation. Registered dietitian is consulted. (5) Type 2 diabetes mellitus Qualifiers: Diabetes mellitus senior care insulin use: without senior care use Diabetes mellitus complication status: with ophthalmic complications Diabetes mellitus complication detail: with cataract Qualified Code(s): E11.36 - Type 2 diabetes mellitus with diabetic cataract Is this a current diagnosis for this admission?: Yes Plan: Hemoglobin A1c 6.7%. She does not take medications at home; diet controlled diabetes mellitus. Blood sugars are expectedly elevated while on steroid therapy. She is placed on a consistent carb diet with sliding scale insulin. Hypoglycemia protocol in place. (6) Noncompliance Is this a current diagnosis for this admission?: Yes Plan: Patient with long-standing history of BiPAP noncompliance. She did use BiPAP overnight. Encourage use. - Time Time Spent with patient: 25-34 minutes Medications reviewed and adjusted accordingly: Yes Anticipated discharge: Home with Homehealth Within: within 48 hours
[2019-04-06] MEDS: GUAIFENESIN 600 MG TABLET.SA PO SCH (22:14)
[2019-04-07] MEDS: LEVALBUTEROL HCL NEB 1.25 MG/3 ML AMPUL NEB SCH ×3 (00:52→15:52)
[2019-04-07] MEDS: IPRATROPIUM BROMIDE 0.02% NEB 0.5 MG/2.5 ML AMPUL NEB SCH ×3 (00:52→15:52)
[2019-04-07 04:24] LABS: HEMATOCRIT 25.1 % (36.0-47.0); HEMOGLOBIN 8.4 g/dL (12.0-15.5); MEAN CORPUSCULAR HEMOGLOBIN 32.5 pg (27.0-33.4); MEAN CORPUSCULAR HGB CONC 33.4 g/dL (32.0-36.0); MEAN CORPUSCULAR VOLUME 98 fl (80-97); PLATELET COUNT 329 10^3/uL (150-450); RED BLOOD COUNT 2.57 10^6/uL (3.72-5.28); RED CELL DISTRIBUTION WIDTH 16.8 % (11.5-14.0); WHITE BLOOD COUNT 12.9 10^3/uL (4.0-10.5)
[2019-04-07 04:44] LABS: ANION GAP 6 (5-19); BLOOD UREA NITROGEN 29 mg/dL (7-20); CALCIUM 8.6 mg/dL (8.4-10.2); CARBON DIOXIDE 33 mmol/L (22-30); CHLORIDE 98 mmol/L (98-107); GLUCOSE 213 mg/dL (75-110); POTASSIUM 4.8 mmol/L (3.6-5.0)
[2019-04-07 04:49] LABS: ABSOLUTE LYMPHOCYTES# (MANUAL) 0.4 10^3/uL (0.5-4.7); ABSOLUTE MONOCYTES # (MANUAL) 0.4 10^3/uL (0.1-1.4); BASOPHILS % (MANUAL) 0 % (0-2); EOSINOPHILS % (MANUAL) 0 % (0-6); LYMPHOCYTES % (MANUAL) 3 % (13-45); MONOCYTES % (MANUAL) 3 % (3-13); SEGMENTED NEUTROPHILS % (MAN) 94 % (42-78); TOTAL CELLS COUNTED 100
[2019-04-07 04:50] LABS: ANISOCYTOSIS 1+; PLATELET COMMENT ADEQUATE
[2019-04-07] MEDS: METHYLPREDNISOLONE INJ 125 MG/2 ML SDV IV SCH ×3 (05:40→22:54)
[2019-04-07] MEDS: DILTIAZEM HCL 30 MG TABLET PO SCH ×3 (05:41→22:53)
[2019-04-07] MEDS: LEVOTHYROXINE SODIUM 0.05 MG TABLET PO SCH (05:41)
[2019-04-07] MEDS: HEPARIN SOD (PORCINE) 5,000 UNIT/ML 1 ML VIAL SUBCUT SCH ×3 (05:41→22:54)
[2019-04-07] MEDS: ONDANSETRON HCL INJ/PF 4 MG/2 ML SDV IV PRN (05:49)
[2019-04-07] MEDS: INSULIN REG, HUMAN 100 UNIT/ML 3 ML VIAL (PYX) SUBCUT SCH ×4 (08:15→22:55)
--- NOTE | 2019-04-07 08:19 | PDOC DISCHARGE SUMMARY ---
General - Admit/Disc Date/PCP Admission Date/Primary Care Provider: 04/05/19 16:03 ARASELI AGUILAR MD Discharge Date: 04/07/19 - Discharge Diagnosis (1) Acute and chronic respiratory failure with hypercapnia Is this a current diagnosis for this admission?: Yes (2) Acute exacerbation of chronic obstructive airways disease Is this a current diagnosis for this admission?: Yes (3) Healthcare-associated pneumonia Is this a current diagnosis for this admission?: Yes (4) Type 2 diabetes mellitus Is this a current diagnosis for this admission?: Yes (5) Anemia Is this a current diagnosis for this admission?: Yes - Additional Information Resuscitation Status: Full Code Discharge Diet: As Tolerated Discharge Activity: Activity As Tolerated Prescriptions: Prednisone 10 mg PO DAILY #21 [id number] Home Medications: Albuterol Sulfate [Ventolin 0.083% Neb 2.5 mg/3 mL Ampul] 1 vial NEB RTQ8 04/05/19 Budesonide/Formoterol Fumarate [Symbicort HFA 160-4.5 mcg Inhaler 6 gm] 2 puff IH Q12 04/05/19 Diltiazem HCl [Cardizem 30 mg Tablet] 30 mg PO Q8 04/05/19 Fluticasone/Salmeterol [Advair 250-50 Diskus 14 Dose/Diskus] 1 puff IH Q12 04/05/19 Furosemide [Lasix 20 mg Tablet] 20 mg PO DAILY 04/05/19 Ibuprofen [Motrin 800 mg Tablet] 800 mg PO TID 04/05/19 Levothyroxine Sodium [Synthroid 0.05 mg Tablet] 0.1 mg PO Q6AM 04/05/19 Potassium Chloride [Klor-Con 10 Meq Capsule ER] 10 meq PO DAILY 04/05/19 Sertraline HCl [Zoloft] 25 mg PO DAILY 04/05/19 Prednisone 10 mg PO DAILY #21 tab.ds.pk 04/07/19 History of Present Illness Patient complains of: None this a.m. History of Present Illness: TRENTON MCCOY is a 73 year old female who presented to the ER in respiratory distress. Patient was found to have hypercapnic rest kim failure on BiPAP at this time. Upon entering room patient unable to speak to me and anything but 1- 2 word increments. Patient was obviously distressed and could not get get any further information at this time from her. Hospital Course Hospital Course: Patient was admitted from the ER with respiratory distress on BiPAP. Patient has frequent hypercapnic respiratory failure requiring this modality. Patient also has chronic COPD which was treated with bronchodilators, steroids and antibiotics. Patient was initially treated empirically for healthcare associated pneumonia which was ruled out at this time is improved sufficiently return home. I will send patient home with her current home medications as well as respiratory treatments and will give her a prescription for prednisone Dosepak. Patient will follow-up with her primary care practitioner within 1 week. Physical Exam Vital Signs: Temp Pulse Resp BP Pulse Ox 97.5 F 94 20 147/76 H 99 04/07/19 03:23 04/07/19 06:44 04/07/19 03:23 04/07/19 03:23 04/07/19 03:23 Intake & Output 04/06/19 04/07/19 04/08/19 06:59 06:59 06:59 Intake Total 2025 1246 Output Total 350 1500 Balance 1675 -254 Weight 82.8 kg 84.2 kg General appearance: PRESENT: no acute distress, well-developed, well-nourished Head exam: PRESENT: atraumatic, normocephalic Eye exam: PRESENT: conjunctiva pink, EOMI, PERRLA. ABSENT: scleral icterus Ear exam: PRESENT: normal external ear exam Mouth exam: PRESENT: moist, tongue midline Neck exam: ABSENT: carotid bruit, JVD, lymphadenopathy, thyromegaly Respiratory exam: PRESENT: clear to auscultation jeff. ABSENT: rales, rhonchi, wheezes Cardiovascular exam: PRESENT: RRR. ABSENT: diastolic murmur, rubs, systolic murmur Pulses: PRESENT: normal dorsalis pedis pul Vascular exam: PRESENT: normal capillary refill GI/Abdominal exam: PRESENT: normal bowel sounds, soft. ABSENT: distended, guarding, mass, organolmegaly, rebound, tenderness Rectal exam: PRESENT: deferred Extremities exam: PRESENT: full ROM. ABSENT: calf tenderness, clubbing, pedal edema Neurological exam: PRESENT: alert, awake, oriented to person, oriented to place, oriented to time, oriented to situation, CN II-XII grossly intact. ABSENT: motor sensory deficit Psychiatric exam: PRESENT: appropriate affect, normal mood. ABSENT: homicidal ideation, suicidal ideation Skin exam: PRESENT: dry, intact, warm. ABSENT: cyanosis, rash Results Laboratory Results: 04/07/19 04:06 04/07/19 04:06 04/07/19 04/07/19 04:06 04:06 WBC 12.9 H RBC 2.57 L Hgb 8.4 L Hct 25.1 L MCV 98 H MCH 32.5 MCHC 33.4 RDW 16.8 H Plt Count 329 Seg Neutrophils % Not Reportable Sodium 137.0 Potassium 4.8 Chloride 98 Carbon Dioxide 33 H Anion Gap 6 BUN 29 H Creatinine 0.98 Est GFR ( Amer) > 60 Glucose 213 H Calcium 8.6 04/05/19 13:45 Troponin I 0.025 Impressions: Chest X-Ray 04/05/19 00:00 IMPRESSION: NO ACUTE RADIOGRAPHIC FINDING IN THE CHEST. Qualifiers - * PATIENT BEING DISCHARGED WITH ANY OF THE FOLLOWING DIAGNOSIS: No Acute Heart Failure - Is this a Heart Failure Patient?: No Plan Time Spent: Greater than 30 Minutes
[2019-04-07] MEDS: BUDESONIDE NEB 0.5 MG/2 ML AMPUL NEB SCH ×2 (08:30→20:30)
[2019-04-07] MEDS: FUROSEMIDE 20 MG TABLET PO SCH (10:06)
[2019-04-07] MEDS: MULTIVITAMINS W-IRON TABLET, CHEWABLE PO SCH (10:06)
[2019-04-07] MEDS: GUAIFENESIN 600 MG TABLET.SA PO SCH ×2 (10:06→22:54)
[2019-04-07] MEDS: SERTRALINE HCL 50 MG TABLET PO SCH (10:06)
[2019-04-07] MEDS: POTASSIUM CHLORIDE 10 MEQ CAPSULE.ER PO SCH (10:06)
--- NOTE | 2019-04-07 18:54 | EKG REPORT ---
SEVERITY:- ABNORMAL ECG - SINUS TACHYCARDIA RIGHT BUNDLE BRANCH BLOCK : Confirmed by: Mercedes Solomon 07-Apr-2019 18:54:12
[2019-04-08] MEDS: IPRATROPIUM BROMIDE 0.02% NEB 0.5 MG/2.5 ML AMPUL NEB SCH ×3 (00:20→16:11)
[2019-04-08] MEDS: LEVALBUTEROL HCL NEB 1.25 MG/3 ML AMPUL NEB SCH ×3 (00:20→16:11)
[2019-04-08] MEDS: DILTIAZEM HCL 30 MG TABLET PO SCH ×2 (05:46→13:10)
[2019-04-08] MEDS: HEPARIN SOD (PORCINE) 5,000 UNIT/ML 1 ML VIAL SUBCUT SCH ×2 (05:46→13:10)
[2019-04-08] MEDS: METHYLPREDNISOLONE INJ 125 MG/2 ML SDV IV SCH ×2 (05:46→13:10)
[2019-04-08] MEDS: LEVOTHYROXINE SODIUM 0.05 MG TABLET PO SCH (05:47)
[2019-04-08 08:06] LABS: ANION GAP 5 (5-19); BLOOD UREA NITROGEN 34 mg/dL (7-20); CALCIUM 8.9 mg/dL (8.4-10.2); CARBON DIOXIDE 36 mmol/L (22-30); CHLORIDE 99 mmol/L (98-107); GLUCOSE 190 mg/dL (75-110); POTASSIUM 4.5 mmol/L (3.6-5.0)
[2019-04-08 08:18] LABS: HEMATOCRIT 27.3 % (36.0-47.0); MEAN CORPUSCULAR HEMOGLOBIN 31.7 pg (27.0-33.4); MEAN CORPUSCULAR HGB CONC 32.9 g/dL (32.0-36.0); MEAN CORPUSCULAR VOLUME 97 fl (80-97); PLATELET COUNT 323 10^3/uL (150-450); RED BLOOD COUNT 2.83 10^6/uL (3.72-5.28); RED CELL DISTRIBUTION WIDTH 16.3 % (11.5-14.0)
[2019-04-08] MEDS: INSULIN REG, HUMAN 100 UNIT/ML 3 ML VIAL (PYX) SUBCUT SCH ×3 (08:31→17:22)
[2019-04-08] MEDS: BUDESONIDE NEB 0.5 MG/2 ML AMPUL NEB SCH ×2 (08:33→20:34)
[2019-04-08 08:46] LABS: ABSOLUTE LYMPHOCYTES# (MANUAL) 0.4 10^3/uL (0.5-4.7); ABSOLUTE MONOCYTES # (MANUAL) 0.5 10^3/uL (0.1-1.4); BAND NEUTROPHILS % (MANUAL) 1 % (3-5); BASOPHILS % (MANUAL) 0 % (0-2); EOSINOPHILS % (MANUAL) 0 % (0-6); LYMPHOCYTES % (MANUAL) 3 % (13-45); METAMYELOCYTES % (MANUAL) 2 % (0); MONOCYTES % (MANUAL) 4 % (3-13); SEGMENTED NEUTROPHILS % (MAN) 90 % (42-78); TOTAL CELLS COUNTED 100
[2019-04-08 08:47] LABS: ANISOCYTOSIS 1+; OVALOCYTES 1+; PLATELET COMMENT ADEQUATE; POIKILOCYTOSIS 1+; TEAR DROP CELLS 1+
[2019-04-08] MEDS: SERTRALINE HCL 50 MG TABLET PO SCH (09:11)
[2019-04-08] MEDS: FUROSEMIDE 20 MG TABLET PO SCH (09:11)
[2019-04-08] MEDS: GUAIFENESIN 600 MG TABLET.SA PO SCH (09:11)
[2019-04-08] MEDS: POTASSIUM CHLORIDE 10 MEQ CAPSULE.ER PO SCH (09:11)
[2019-04-08] MEDS: MULTIVITAMINS W-IRON TABLET, CHEWABLE PO SCH (09:11)
[2019-04-08 19:24] VITALS: BP 137/77
== END 2019-04-08 20:10 | disposition home or self-care (01) | DRG 189 ==
LOC: ER 12:50 → EH 16:03 → 3W 18:07
PROVIDERS: ADMIT Hospitalist; ATTEND Hospitalist
PROC: 5A09457 Assistance with Respiratory Ventilation, 24-96 Consecutive Hours, Continuous Positive Airway Pressure (ICD-10-PCS; principal; 2019-04-05)
DX: J96.22 Acute and chronic respiratory failure with hypercapnia (principal); J44.1 Chronic obstructive pulmonary disease with (acute) exacerbation; C34.90 Malignant neoplasm of unspecified part of unspecified bronchus or lung; C79.31 Secondary malignant neoplasm of brain; D64.9 Anemia, unspecified; I48.91 Unspecified atrial fibrillation; I50.9 Heart failure, unspecified; I25.10 Atherosclerotic heart disease of native coronary artery without angina pectoris; I11.0 Hypertensive heart disease with heart failure; E03.9 Hypothyroidism, unspecified; K21.9 Gastro-esophageal reflux disease without esophagitis; M10.9 Gout, unspecified; F32.9 Major depressive disorder, single episode, unspecified; E11.36 Type 2 diabetes mellitus with diabetic cataract; I25.2 Old myocardial infarction; Z79.899 Other long term (current) drug therapy; Z87.891 Personal history of nicotine dependence; Z88.1 Allergy status to other antibiotic agents; Z88.3 Allergy status to other anti-infective agents; Z88.0 Allergy status to penicillin; Z91.19 Patient's noncompliance with other medical treatment and regimen
CPT/HCPCS: 36415; 36600; 71045; 71260; 80048; 80053; 81001; 82803; 82962; 83036; 83605; 83735; 83880; 84100; 84484; 85025; 85610; 87040; 87070; 87077; 87086; 87088; 87186; 87205; 93005; 93010; 94640; 94660; 94667; 94799; 96365; 96366; 96368; 96375; 99285; J1644; J1815; J1956; J2185; J2405; J2930; J3370; J3475; J3490; J7030; J7620

== ENCOUNTER 2019-04-16 15:55 | Emergency (ER) | payer MEDICARE, OTHER ==
[2019-04-16] MEDS ORDERED: IPRATROPIUM/ALBUTEROL 0.5-2.5 MG/3 ML AMPUL NEB ONE (17:20)
--- NOTE | 2019-04-16 18:04 | ER Document Report ---
ED General - General Chief Complaint: Medical Complaint Stated Complaint: COUGH Time Seen by Provider: 04/16/19 16:47 Primary Care Provider: ARASELI AGUILAR MD [Primary Care Provider] - Follow up as needed Mode of Arrival: Medic Information source: Patient Notes: Patient is a 73-year-old female presenting from home with complaints of generalized pain over the last 2 days as well as a rash to her vaginal area. She was brought in via EMS. EMS reports she had significant wheezing. EMS states he gave her a DuoNeb which has improved her symptoms. Her vital signs were stable for EMS transport. Patient reports to ne generalized pain all over. TRAVEL OUTSIDE OF THE [place] IN LAST 30 DAYS: No - Related Data Allergies/Adverse Reactions: azithromycin Allergy (Verified 12/30/18 17:18) cephalexin Allergy (Verified 12/30/18 17:18) Penicillins Allergy (Verified 12/30/18 17:18) amoxicillin [Amoxicillin] Adverse Reaction (Verified 12/30/18 17:18) visual hallucinations erythromycin base [Erythromycin Base] Adverse Reaction (Verified 12/30/18 17:18) visual hallucinations Potassium Clavulanate * [From Augmentin] Adverse Reaction (Verified 12/30/18 17:18) visual hallucinations Past Medical History - Social History Smoking Status: Unknown if Ever Smoked Family History: COPD, Malignancy - Lung cancer Patient has suicidal ideation: No Patient has homicidal ideation: No - Past Medical History Cardiac Medical History: Reports: Hx Atrial Fibrillation, Hx Congestive Heart Failure, Hx Coronary Artery Disease, Hx Heart Attack, Hx Hypertension Denies: Hx DVT, Hx Hypercholesterolemia, Hx Pulmonary Embolism Pulmonary Medical History: Reports: Hx Asthma, Hx Bronchitis, Hx COPD, Hx Pneumonia, Hx Respiratory Failure - Chronic respiratory failure Denies: Hx Sleep Apnea, Hx Tuberculosis Neurological Medical History: Denies: Hx Seizures Endocrine Medical History: Reports: Hx Diabetes Mellitus Type 2, Hx Hypothyroidism. 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 Denies: Hx Cirrhosis, Hx Hepatitis, Hx Ulcer Musculoskeletal Medical History: Reports Hx Arthritis, Reports Hx Gout, Denies Hx Multiple Sclerosis, Reports Hx Musculoskeletal Deformity, Reports Hx Musculoskeletal Trauma Skin Medical History: Denies Hx Eczema, Denies Hx Psoriasis Psychiatric Medical History: Reports: Hx Dementia, Hx Depression Denies: Hx Bipolar Disorder, Hx Schizophrenia Infectious Medical History: Reports: Hx C-Diff. Denies: Hx Hepatitis Past Surgical History: Reports: Hx Cholecystectomy, Hx Orthopedic Surgery - Foot surgery, Other - cataract bilateral - Immunizations Immunizations up to date: Yes Hx Diphtheria, Pertussis, Tetanus Vaccination: Yes Hx Pneumococcal Vaccination: 08/30/12 Physical Exam - Vital signs Vitals: Temp Pulse Resp BP Pulse Ox 98.2 F 104 H 20 107/68 97 04/16/19 16:14 04/16/19 16:14 04/16/19 16:14 04/16/19 16:14 04/16/19 16:14 Course - Vital Signs Vital signs: Temp Pulse Resp BP Pulse Ox 98.2 F 104 H 20 107/68 97 04/16/19 16:14 04/16/19 16:14 04/16/19 16:14 04/16/19 16:14 04/16/19 16:14 Discharge - Discharge Referrals: ARASELI AGUILAR MD [Primary Care Provider] - Follow up as needed
--- NOTE | 2019-04-16 18:07 | RADIOLOGY REPORT (SQ) ---
EXAM DESCRIPTION: CHEST SINGLE VIEW COMPLETED DATE/TIME: 04/16/2019 5:38 pm REASON FOR STUDY: chest pain COMPARISON: 04/05/2019 EXAM PARAMETERS: NUMBER OF VIEWS: One view. TECHNIQUE: Single frontal radiographic view of the chest acquired. RADIATION DOSE: NA LIMITATIONS: None. FINDINGS: LUNGS AND PLEURA: Small left pleural effusion. MEDIASTINUM AND HILAR STRUCTURES: No masses. Contour normal. HEART AND VASCULAR STRUCTURES: Borderline cardiomegaly. No [place] pulmonary edema. BONES: No acute findings. HARDWARE: None in the chest. OTHER: No other significant finding. IMPRESSION: Borderline heart size with no pulmonary edema. Minimal left pleural effusion. TECHNICAL DOCUMENTATION: JOB ID: [id number] All Rights Reserved Reading location - IP/workstation name: [email or web address]
--- NOTE | 2019-04-16 18:41 | EKG REPORT ---
SEVERITY:- ABNORMAL ECG - SINUS RHYTHM RBBB AND LAFB : Confirmed by: Issa Martinez MD 16-Apr-2019 18:41:08
[2019-04-16 18:48] LABS: APPEARANCE,URINE CLEAR; BILIRUBIN,URINE NEGATIVE (NEGATIVE); COLOR,URINE STRAW; GLUCOSE, URINE NEGATIVE (NEGATIVE); KETONES,URINE NEGATIVE (NEGATIVE); LEUKOCYTE ESTERASE,URINE SMALL (NEGATIVE); NITRITE,URINE NEGATIVE (NEGATIVE); PROTEIN,URINE NEGATIVE (NEGATIVE); URINE SPECIFIC GRAVITY 1.006; UROBILINOGEN,URINE NEGATIVE mg/dL (<2.0)
[2019-04-16 19:04] LABS: HEMATOCRIT 29.9 % (36.0-47.0); HEMOGLOBIN 9.9 g/dL (12.0-15.5); MEAN CORPUSCULAR HEMOGLOBIN 32.4 pg (27.0-33.4); MEAN CORPUSCULAR HGB CONC 33.2 g/dL (32.0-36.0); MEAN CORPUSCULAR VOLUME 97 fl (80-97); PLATELET COUNT 205 10^3/uL (150-450); RED BLOOD COUNT 3.06 10^6/uL (3.72-5.28); RED CELL DISTRIBUTION WIDTH 16.7 % (11.5-14.0); WHITE BLOOD COUNT 12.7 10^3/uL (4.0-10.5)
[2019-04-16 19:24] LABS: ABSOLUTE LYMPHOCYTES# (MANUAL) 0.6 10^3/uL (0.5-4.7); ABSOLUTE MONOCYTES # (MANUAL) 0.3 10^3/uL (0.1-1.4); BASOPHILS % (MANUAL) 0 % (0-2); EOSINOPHILS % (MANUAL) 0 % (0-6); LYMPHOCYTES % (MANUAL) 5 % (13-45); MONOCYTES % (MANUAL) 2 % (3-13); SEGMENTED NEUTROPHILS % (MAN) 93 % (42-78); TOTAL CELLS COUNTED 100
[2019-04-16 19:27] LABS: ANISOCYTOSIS 1+; PLATELET COMMENT ADEQUATE; POIKILOCYTOSIS SLIGHT; TEAR DROP CELLS SLIGHT
[2019-04-16 19:33] LABS: ALBUMIN 3.1 g/dL (3.5-5.0); ALKALINE PHOSPHATASE 88 U/L (38-126); ASPARTATE AMINO TRANSFERASE 21 U/L (14-36); BILIRUBIN,DIRECT 0.2 mg/dL (0.0-0.4); BILIRUBIN,TOTAL 0.2 mg/dL (0.2-1.3); BLOOD UREA NITROGEN 23 mg/dL (7-20); CALCIUM 9.2 mg/dL (8.4-10.2); CHLORIDE 91 mmol/L (98-107); GLUCOSE 123 mg/dL (75-110); POTASSIUM 4.7 mmol/L (3.6-5.0); TOTAL PROTEIN 5.5 g/dL (6.3-8.2)
[2019-04-16 19:55] LABS: ANION GAP 4 (5-19)
[2019-04-16 19:56] LABS: CARBON DIOXIDE 43 mmol/L (22-30)
--- NOTE | 2019-04-16 19:57 | ER Document Report ---
ED General - General Chief Complaint: Medical Complaint Stated Complaint: COUGH Time Seen by Provider: 04/16/19 16:47 Primary Care Provider: ARASELI AGUILAR MD [Primary Care Provider] - Follow up as needed Mode of Arrival: Medic Information source: Patient Notes: Patient is a 73-year-old female with multiple comorbidities presenting to the emergency department with chief complaint of pain all over and increased shortness of breath. Patient also reports increased sputum production. She denies any fevers. She denies any nausea, vomiting, diarrhea or dysuria. TRAVEL OUTSIDE OF THE [place] IN LAST 30 DAYS: No - Related Data Allergies/Adverse Reactions: azithromycin Allergy (Verified 12/30/18 17:18) cephalexin Allergy (Verified 12/30/18 17:18) Penicillins Allergy (Verified 12/30/18 17:18) amoxicillin [Amoxicillin] Adverse Reaction (Verified 12/30/18 17:18) visual hallucinations erythromycin base [Erythromycin Base] Adverse Reaction (Verified 12/30/18 17:18) visual hallucinations Potassium Clavulanate * [From Augmentin] Adverse Reaction (Verified 12/30/18 17:18) visual hallucinations Past Medical History - General Information source: Patient - Social History Smoking Status: Never Smoker Frequency of alcohol use: None Drug Abuse: None Family History: COPD, Malignancy - Lung cancer Patient has suicidal ideation: No Patient has homicidal ideation: No - Past Medical History Cardiac Medical History: Reports: Hx Atrial Fibrillation, Hx Congestive Heart Failure, Hx Coronary Artery Disease, Hx Heart Attack, Hx Hypertension Denies: Hx DVT, Hx Hypercholesterolemia, Hx Pulmonary Embolism Pulmonary Medical History: Reports: Hx Asthma, Hx Bronchitis, Hx COPD, Hx Pneumonia, Hx Respiratory Failure - Chronic respiratory failure Denies: Hx Sleep Apnea, Hx Tuberculosis Neurological Medical History: Denies: Hx Seizures Endocrine Medical History: Reports: Hx Diabetes Mellitus Type 2, Hx Hypothyroidism. 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 Denies: Hx Cirrhosis, Hx Hepatitis, Hx Ulcer Musculoskeletal Medical History: Reports Hx Arthritis, Reports Hx Gout, Denies Hx Multiple Sclerosis, Reports Hx Musculoskeletal Deformity, Reports Hx Musculoskeletal Trauma Skin Medical History: Denies Hx Eczema, Denies Hx Psoriasis Psychiatric Medical History: Reports: Hx Dementia, Hx Depression Denies: Hx Bipolar Disorder, Hx Schizophrenia Infectious Medical History: Reports: Hx C-Diff. Denies: Hx Hepatitis Past Surgical History: Reports: Hx Cholecystectomy, Hx Orthopedic Surgery - Foot surgery, Other - cataract bilateral - Immunizations Immunizations up to date: Yes Hx Diphtheria, Pertussis, Tetanus Vaccination: Yes Hx Pneumococcal Vaccination: 08/30/12 Review of Systems - Review of Systems Constitutional: No symptoms reported. denies: Chills, Fever EENT: Nose congestion Cardiovascular: denies: Chest pain Respiratory: Cough, Short of breath. denies: Wheezing Gastrointestinal: No symptoms reported Genitourinary: No symptoms reported Female Genitourinary: No symptoms reported Musculoskeletal: No symptoms reported Skin: No symptoms reported Hematologic/Lymphatic: No symptoms reported Neurological/Psychological: No symptoms reported Physical Exam - Vital signs Vitals: Resp 20 04/16/19 16:08 - Notes Notes: PHYSICAL EXAMINATION: GENERAL: Well-appearing, well-nourished and in no acute distress. HEAD: Atraumatic, normocephalic. EYES: Pupils equal round and reactive to light, extraocular movements intact, conjunctiva are normal. ENT: Nares patent, oropharynx clear without exudates. Moist mucous membranes. NECK: Normal range of motion, supple without lymphadenopathy LUNGS: Mild expiratory wheezes noted bilaterally. No increased work of breathing noted. HEART: Regular rate and rhythm without murmurs ABDOMEN: Soft, nontender, nondistended abdomen. No guarding, no rebound. No masses appreciated. Female : Skin excoriation noted to perineal region consistent with yeast rash. Musculoskeletal: Normal range of motion, no pitting or edema. No cyanosis. NEUROLOGICAL: Cranial nerves grossly intact. Speech at patient's baseline. Normal sensory, motor exams PSYCH: Normal mood, normal affect. SKIN: See above. Course - Re-evaluation Re-evalutation: Laboratory 04/16/19 04/16/19 04/16/19 18:27 18:54 18:54 WBC 12.7 H RBC 3.06 L Hgb 9.9 L Hct 29.9 L MCV 97 MCH 32.4 MCHC 33.2 RDW 16.7 H Plt Count 205 Lymph % (Auto) Not Reportable [place] % (Auto) Not Reportable Eos % (Auto) Not Reportable Baso % (Auto) Not Reportable Absolute Neuts (auto) Not Reportable Absolute Lymphs (auto) Not Reportable Absolute Monos (auto) Not Reportable Absolute Eos (auto) Not Reportable Absolute Basos (auto) Not Reportable Total Counted 100 Seg Neutrophils % Not Reportable Seg Neuts % (Manual) 93 H Lymphocytes % (Manual) 5 L Monocytes % (Manual) 2 L Eosinophils % (Manual) 0 Basophils % (Manual) 0 Abs Neuts (Manual) 11.8 H Abs Lymphs (Manual) 0.6 Abs Monocytes (Manual) 0.3 Absolute Eos (Manual) 0.0 Abs Basophils (Manual) 0.0 Platelet Comment ADEQUATE Poikilocytosis SLIGHT Anisocytosis 1+ Tear Drop Cells SLIGHT Sodium 138.3 Potassium 4.7 Chloride 91 L Carbon Dioxide 43 H* Anion Gap 4 L BUN 23 H Creatinine 0.88 Est GFR ( Amer) > 60 Est GFR (MDRD) Non-Af > 60 Glucose 123 H Calcium 9.2 Total Bilirubin 0.2 Direct Bilirubin 0.2 Neonat Total Bilirubin Not Reportable Neonat Direct Bilirubin Not Reportable Neonat Indirect Bili Not Reportable AST 21 ALT 17 Alkaline Phosphatase 88 Troponin I Total Protein 5.5 L Albumin 3.1 L Urine Color STRAW Urine Appearance CLEAR Urine pH 7.0 Ur Specific [place] 1.006 Urine Protein NEGATIVE Urine Glucose (UA) NEGATIVE Urine Ketones NEGATIVE Urine Blood NEGATIVE Urine Nitrite NEGATIVE Urine Bilirubin NEGATIVE Urine Urobilinogen NEGATIVE Ur Leukocyte Esterase SMALL H Urine WBC (Auto) 8 Urine RBC (Auto) 10 U Hyaline Cast (Auto) 5 Squamous Epi Cells Auto 1 Urine Mucus (Auto) RARE Urine Yeast (Budding) PRESENT Urine Ascorbic Acid NEGATIVE 04/16/19 18:54 WBC RBC Hgb Hct MCV MCH MCHC RDW Plt Count Lymph % (Auto) [place] % (Auto) Eos % (Auto) Baso % (Auto) Absolute Neuts (auto) Absolute Lymphs (auto) Absolute Monos (auto) Absolute Eos (auto) Absolute Basos (auto) Total Counted Seg Neutrophils % Seg Neuts % (Manual) Lymphocytes % (Manual) Monocytes % (Manual) Eosinophils % (Manual) Basophils % (Manual) Abs Neuts (Manual) Abs Lymphs (Manual) Abs Monocytes (Manual) Absolute Eos (Manual) Abs Basophils (Manual) Platelet Comment Poikilocytosis Anisocytosis Tear Drop Cells Sodium Potassium Chloride Carbon Dioxide Anion Gap BUN Creatinine Est GFR ( Amer) Est GFR (MDRD) Non-Af Glucose Calcium Total Bilirubin Direct Bilirubin Neonat Total Bilirubin Neonat Direct Bilirubin Neonat Indirect Bili AST ALT Alkaline Phosphatase Troponin I 0.030 Total Protein Albumin Urine Color Urine Appearance Urine pH Ur Specific [place] Urine Protein Urine Glucose (UA) Urine Ketones Urine Blood Urine Nitrite Urine Bilirubin Urine Urobilinogen Ur Leukocyte Esterase Urine WBC (Auto) Urine RBC (Auto) U Hyaline Cast (Auto) Squamous Epi Cells Auto Urine Mucus (Auto) Urine Yeast (Budding) Urine Ascorbic Acid Chest X-Ray 04/16/19 17:19 IMPRESSION: Borderline heart size with no pulmonary edema. Minimal left pleural effusion. Patient appears at her baseline, nontoxic and has been afebrile in the emergency department. She is alert and answering all questions appropriately. We will discharge patient home on doxycycline and prednisone for COPD exacerbation. - Vital Signs Vital signs: Temp Pulse Resp BP Pulse Ox 97.9 F 104 H 11 L 105/61 100 04/16/19 20:34 04/16/19 16:14 04/16/19 20:01 04/16/19 20:01 04/16/19 20:01 - Laboratory Result Diagrams: 04/16/19 18:54 04/16/19 18:54 Laboratory results interpreted by me: 04/16/19 04/16/19 04/16/19 18:27 18:54 18:54 WBC 12.7 H RBC 3.06 L Hgb 9.9 L Hct 29.9 L RDW 16.7 H Seg Neuts % (Manual) 93 H Lymphocytes % (Manual) 5 L Monocytes % (Manual) 2 L Abs Neuts (Manual) 11.8 H Chloride 91 L Carbon Dioxide 43 H* Anion Gap 4 L BUN 23 H Glucose 123 H Total Protein 5.5 L Albumin 3.1 L Ur Leukocyte Esterase SMALL H Discharge - Discharge Clinical Impression: COPD exacerbation Condition: Stable Disposition: HOME, SELF-CARE Additional Instructions: Chronic Obstructive Lung Disease You have chronic obstructive lung disease (COPD). The symptoms come from emphysema (damage to small airways, with trapping of air in large sacks in the lung) and chronic bronchitis (repeated infection and damage to larger airways). The cause is almost always cigarette smoking, although dust exposure, asthma, and infections contribute. You should avoid fumes, dust, and smoke (especially tobacco smoke). Your condition will flare from time to time. There is no cure, but the symptoms can be treated. Bronchodilators (asthma medicine) are often helpful. Antibiotics help when infection is present. When shortness of breath is severe, we may prescribe cortisone medication. If medicine doesn't help enough, we can arrange for you to have an oxygen tank at home. Notify your doctor at once if sputum becomes thick, foul, or bloody, if you develop a fever or chest pain, or if your shortness of breath worsens. Please take medications as prescribed. Please apply the nystatin powder to the affected area 4 times daily. Follow-up with your primary care provider. Prescriptions: Prednisone [Deltasone 20 mg Tablet] 40 mg PO DAILY #10 tablet Doxycycline Hyclate 100 mg PO BID #14 capsule Nystatin 1 applic MC QID #1 powder.ea. Referrals: ARASELI AGUILAR MD [Primary Care Provider] - Follow up as needed
[2019-04-16 20:24] VITALS: BP 105/61
== END 2019-04-16 20:34 | disposition home or self-care (01) ==
LOC: ER 15:55
DX: J44.1 Chronic obstructive pulmonary disease with (acute) exacerbation (principal); J90 Pleural effusion, not elsewhere classified; R06.02 Shortness of breath; R05 Cough; R52 Pain, unspecified; S30.814A Abrasion of vagina and vulva, initial encounter; X58.XXXA Exposure to other specified factors, initial encounter; I25.10 Atherosclerotic heart disease of native coronary artery without angina pectoris; I12.0 Hypertensive chronic kidney disease with stage 5 chronic kidney disease or end stage renal disease; N18.6 End stage renal disease; E11.22 Type 2 diabetes mellitus with diabetic chronic kidney disease; Z99.2 Dependence on renal dialysis; Z87.01 Personal history of pneumonia (recurrent); Z88.0 Allergy status to penicillin; Z88.1 Allergy status to other antibiotic agents
CPT/HCPCS: 93005; 94640; 99284; 51701; 36415; 85025; 80053; 81001; 84484; 71045; 93010; A9270; J7620

== ENCOUNTER 2019-05-04 17:19 | Inpatient (IN) | payer MEDICARE, OTHER ==
--- NOTE | 2019-05-04 18:00 | ER Document Report ---
ED Medical Screen (RME) - General Chief Complaint: Breathing Difficulty Stated Complaint: DIFFICULTY BREATHING Time Seen by Provider: 05/04/19 17:55 Mode of Arrival: Medic Information source: Patient Notes: 73-year-old female presents to ED for complaint of shortness of breath and chest pain. She does have an extensive year history of COPD CHF diabetes blood pressure cholesterol thyroid problems reflux and multiple other chronic ailments. She is on 2 L O2 at home. She is satting at 99% on 3 L in the emergency room. Patient is alert and oriented and able to answer my questions appropriately. I have greeted and performed a rapid initial assessment of this patient. A comprehensive ED assessment and evaluation of the patient, analysis of test results and completion of medical decision making process will be conducted by an additional ED providers. TRAVEL OUTSIDE OF THE [place] IN LAST 30 DAYS: No - Related Data Allergies/Adverse Reactions: azithromycin Allergy (Verified 12/30/18 17:18) cephalexin Allergy (Verified 12/30/18 17:18) Penicillins Allergy (Verified 12/30/18 17:18) amoxicillin [Amoxicillin] Adverse Reaction (Verified 12/30/18 17:18) visual hallucinations erythromycin base [Erythromycin Base] Adverse Reaction (Verified 12/30/18 17:18) visual hallucinations Potassium Clavulanate * [From Augmentin] Adverse Reaction (Verified 12/30/18 17:18) visual hallucinations Past Medical History - Social History Chew tobacco use (# tins/day): No Frequency of alcohol use: None Drug Abuse: None - Past Medical History Cardiac Medical History: Reports: Hx Atrial Fibrillation, Hx Congestive Heart Failure, Hx Coronary Artery Disease, Hx Heart Attack, Hx Hypertension Denies: Hx DVT, Hx Hypercholesterolemia, Hx Pulmonary Embolism Pulmonary Medical History: Reports: Hx Asthma, Hx Bronchitis, Hx COPD, Hx Pneumonia, Hx Respiratory Failure - Chronic respiratory failure Denies: Hx Sleep Apnea, Hx Tuberculosis Neurological Medical History: Denies: Hx Seizures, Hx Parkinson's Disease Endocrine Medical History: Reports: Hx Diabetes Mellitus Type 2, Hx Hypothyroidism. 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 Denies: Hx Cirrhosis, Hx Hepatitis, Hx Ulcer Musculoskeltal Medical History: Reports Hx Arthritis, Reports Hx Gout, Denies Hx Multiple Sclerosis, Reports Hx Musculoskeletal Deformity, Reports Hx Musculoskeletal Trauma Skin Medical History: Denies Hx Eczema, Denies Hx Psoriasis Psychiatric Medical History: Reports: Hx Dementia, Hx Depression Denies: Hx Bipolar Disorder, Hx Schizophrenia Infectious Medical History: Reports: Hx C-Diff. Denies: Hx Hepatitis Past Surgical History: Reports: Hx Cholecystectomy, Hx Orthopedic Surgery - Foot surgery, Other - cataract bilateral - Immunizations Immunizations up to date: Yes Hx Diphtheria, Pertussis, Tetanus Vaccination: Yes Physical Exam - Vital signs Vitals: Pulse Ox 98 05/04/19 17:20 Course - Vital Signs Vital signs: Temp Pulse Resp BP Pulse Ox 97.8 F 19 102/70 97 05/04/19 22:15 05/04/19 22:17 05/04/19 22:17 05/04/19 22:17 - Laboratory Result Diagrams: 05/04/19 17:55 05/04/19 17:55 Laboratory results interpreted by me: 05/04/19 05/04/19 05/04/19 17:55 17:55 17:55 RBC 2.85 L Hgb 9.1 L Hct 27.8 L MCV 98 H RDW 17.2 H Lymph % (Auto) 6.2 L Absolute Lymphs (auto) 0.4 L Seg Neutrophils % 89.4 H Chloride 96 L Carbon Dioxide 38 H Creatinine 1.49 H Est GFR ( Amer) 41 L Est GFR (MDRD) Non-Af 34 L Glucose 176 H Calcium 11.0 H Creatine Kinase < 20 L NT-Pro-B Natriuret Pep 949 H Total Protein 6.0 L Albumin 3.1 L Doctor's Discharge - Discharge Clinical Impression: COPD with acute exacerbation, Precordial chest pain Disposition: ADMITTED INPATIENT
[2019-05-04 18:26] LABS: INTERNATIONAL RATION (INR) 0.99; PROTHROMBIN TIME 13.1 SEC (11.4-15.4)
[2019-05-04 18:27] LABS: PARTIAL THROMBOPLASTIN TIME 26.3 SEC (23.5-35.8)
[2019-05-04 18:28] LABS: ABSOLUTE EOSINOPHILS # (AUTO) 0.1 10^3/uL (0.0-0.6); ABSOLUTE LYMPHOCYTES (AUTO) 0.4 10^3/uL (0.5-4.7); ABSOLUTE MONOCYTES (AUTO) 0.2 10^3/uL (0.1-1.4); ABSOLUTE NEUT (AUTO) 5.8 10^3/uL (1.7-8.2); BASOPHILS % (AUTO) 0.2 % (0-2); EOSINOPHILS % (AUTO) 0.9 % (0-6); HEMATOCRIT 27.8 % (36.0-47.0); HEMOGLOBIN 9.1 g/dL (12.0-15.5); LYMPHOCYTES % (AUTO) 6.2 % (13-45); MEAN CORPUSCULAR HGB CONC 32.7 g/dL (32.0-36.0); MEAN CORPUSCULAR VOLUME 98 fl (80-97); MONOCYTES % (AUTO) 3.3 % (3-13); PLATELET COUNT 270 10^3/uL (150-450); RED BLOOD COUNT 2.85 10^6/uL (3.72-5.28); RED CELL DISTRIBUTION WIDTH 17.2 % (11.5-14.0); SEGMENTED NEUTROPHILS % (AUTO) 89.4 % (42-78); TOTAL CELLS COUNTED % (AUTO) 100 %; WHITE BLOOD COUNT 6.5 10^3/uL (4.0-10.5)
--- NOTE | 2019-05-04 18:32 | RADIOLOGY REPORT (SQ) ---
EXAM DESCRIPTION: CHEST SINGLE VIEW COMPLETED DATE/TIME: 05/04/2019 6:21 pm REASON FOR STUDY: #1 SYNCOPE COMPARISON: Chest x-ray 04/16/2019, 02/25/2019. CT chest 04/03/2019 EXAM PARAMETERS: NUMBER OF VIEWS: One view. TECHNIQUE: Single frontal radiographic view of the chest acquired. RADIATION DOSE: NA LIMITATIONS: None. FINDINGS: LUNGS AND PLEURA: No consolidation, pneumothorax or pleural effusion. MEDIASTINUM AND HILAR STRUCTURES: Redemonstration of chronic changes at the right perihilar region. HEART AND VASCULAR STRUCTURES: Heart normal in size. Normal vasculature. BONES: No acute findings. HARDWARE: None in the chest. IMPRESSION: NO ACUTE RADIOGRAPHIC FINDING IN THE CHEST. TECHNICAL DOCUMENTATION: JOB ID: [id number] [employer]- All Rights Reserved Reading location - IP/workstation name: [email or web address]
[2019-05-04 18:47] LABS: ALBUMIN 3.1 g/dL (3.5-5.0); ALKALINE PHOSPHATASE 56 U/L (38-126); ASPARTATE AMINO TRANSFERASE 19 U/L (14-36); BILIRUBIN,DIRECT 0.1 mg/dL (0.0-0.4); BILIRUBIN,TOTAL 0.2 mg/dL (0.2-1.3); BLOOD UREA NITROGEN 15 mg/dL (7-20); CHLORIDE 96 mmol/L (98-107); GLUCOSE 176 mg/dL (75-110)
[2019-05-04 18:59] LABS: CREATINE KINASE MB 0.42 ng/mL (<4.55); NT PRO BNP 949 pg/mL (<450)
[2019-05-04 19:05] LABS: TROPONIN I < 0.012 ng/mL
[2019-05-04 19:15] LABS: ANION GAP 8 (5-19); CARBON DIOXIDE 38 mmol/L (22-30)
[2019-05-04 19:17] LABS: CREATINE KINASE < 20 U/L (30-135)
[2019-05-04] MEDS ORDERED: METHYLPREDNISOLONE INJ 125 MG/2 ML SDV IV ONE (20:11)
[2019-05-04] MEDS ORDERED: IPRATROPIUM/ALBUTEROL 0.5-2.5 MG/3 ML AMPUL NEB ONE (20:11)
[2019-05-04] MEDS ORDERED: ASPIRIN 81 MG TABLET, CHEWABLE PO ONE (20:11)
--- NOTE | 2019-05-04 20:13 | ER Document Report ---
ED General - General Chief Complaint: Breathing Difficulty Stated Complaint: DIFFICULTY BREATHING Time Seen by Provider: 05/04/19 17:55 Primary Care Provider: ARASELI AGUILAR MD [Primary Care Provider] - Follow up as needed Mode of Arrival: Medic TRAVEL OUTSIDE OF THE [place] IN LAST 30 DAYS: No - HPI Notes: This is a 73-year-old female with oxygen dependent COPD who presents today with complaint of cough, congestion, dyspnea and chest pain. Patient describes tightness across her chest earlier today. Patient states he feels fine now. Patient has been on oral antibiotics for pneumonia. Family was concerned that she was not getting better. She came per EMS. The patient says she feels fine now. Chest pain and dyspnea resolved at this time. She denies any fever chills. Cough is productive of green sputum. - Related Data Allergies/Adverse Reactions: azithromycin Allergy (Verified 12/30/18 17:18) cephalexin Allergy (Verified 12/30/18 17:18) Penicillins Allergy (Verified 12/30/18 17:18) amoxicillin [Amoxicillin] Adverse Reaction (Verified 12/30/18 17:18) visual hallucinations erythromycin base [Erythromycin Base] Adverse Reaction (Verified 12/30/18 17:18) visual hallucinations Potassium Clavulanate * [From Augmentin] Adverse Reaction (Verified 12/30/18 17:18) visual hallucinations Past Medical History - General Information source: Patient - Social History Smoking Status: Former Smoker Chew tobacco use (# tins/day): No Frequency of alcohol use: None Drug Abuse: None Family History: COPD, Malignancy - Lung cancer Patient has suicidal ideation: No Patient has homicidal ideation: No - Past Medical History Cardiac Medical History: Reports: Hx Atrial Fibrillation, Hx Congestive Heart Failure, Hx Coronary Artery Disease, Hx Heart Attack, Hx Hypertension Denies: Hx DVT, Hx Hypercholesterolemia, Hx Pulmonary Embolism Pulmonary Medical History: Reports: Hx Asthma, Hx Bronchitis, Hx COPD, Hx Pneumonia, Hx Respiratory Failure - Chronic respiratory failure Denies: Hx Sleep Apnea, Hx Tuberculosis Neurological Medical History: Denies: Hx Seizures, Hx Parkinson's Disease Endocrine Medical History: Reports: Hx Diabetes Mellitus Type 2, Hx Hypothyroidism. 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 Denies: Hx Cirrhosis, Hx Hepatitis, Hx Ulcer Musculoskeletal Medical History: Reports Hx Arthritis, Reports Hx Gout, Denies Hx Multiple Sclerosis, Reports Hx Musculoskeletal Deformity, Reports Hx Musculoskeletal Trauma Skin Medical History: Denies Hx Eczema, Denies Hx Psoriasis Psychiatric Medical History: Reports: Hx Dementia, Hx Depression Denies: Hx Bipolar Disorder, Hx Schizophrenia Infectious Medical History: Reports: Hx C-Diff. Denies: Hx Hepatitis Past Surgical History: Reports: Hx Cholecystectomy, Hx Orthopedic Surgery - Foot surgery, Other - cataract bilateral - Immunizations Immunizations up to date: Yes Hx Diphtheria, Pertussis, Tetanus Vaccination: Yes Hx Pneumococcal Vaccination: 08/30/12 Review of Systems - Review of Systems Cardiovascular: Chest pain. denies: Palpitations, Heart racing Respiratory: Cough, Short of breath, Sputum -: Yes All other systems reviewed and negative Physical Exam - Vital signs Vitals: Pulse Ox 98 05/04/19 17:20 - General General appearance: Appears well, Alert - HEENT Head: Normocephalic, Atraumatic Eyes: Normal Pupils: PERRL - Respiratory Respiratory status: No respiratory distress Chest status: Nontender Breath sounds: Nonproductive cough, Wheezing Chest palpation: Normal - Cardiovascular Rhythm: Regular Heart sounds: Normal auscultation Murmur: No - Abdominal Inspection: Normal Distension: No distension Bowel sounds: Normal Tenderness: Nontender Organomegaly: No organomegaly - Neurological Neuro grossly intact: Yes Cognition: Normal Orientation: AAOx4 Raquel Coma Scale Eye Opening: Spontaneous [place] Coma Scale Verbal: Oriented [place] Coma Scale Motor: Obeys Commands [place] Coma Scale Total: 15 Speech: Normal Motor strength normal: LUE, RUE, LLE, RLE Sensory: Normal - Psychological Associated symptoms: Normal affect, Normal mood - Skin Skin Temperature: Warm Skin Moisture: Dry Skin Color: Normal Course - Re-evaluation Re-evalutation: 05/04/19 20:13 Differential diagnosis includes acute coronary syndrome versus COPD exacerbation versus pneumonia. 05/04/19 20:41 EKG shows sinus tachycardia 105 bpm. Right bundle branch block. No acute injury pattern. Patient's care discussed with Dr. Johnston. Will admit. - Vital Signs Vital signs: Temp Pulse Resp BP Pulse Ox 97.9 F 14 102/69 99 05/04/19 18:02 05/04/19 18:02 05/04/19 18:02 05/04/19 18:02 - Laboratory Result Diagrams: 05/04/19 17:55 05/04/19 17:55 Laboratory results interpreted by me: 05/04/19 05/04/19 05/04/19 17:55 17:55 17:55 RBC 2.85 L Hgb 9.1 L Hct 27.8 L MCV 98 H RDW 17.2 H Lymph % (Auto) 6.2 L Absolute Lymphs (auto) 0.4 L Seg Neutrophils % 89.4 H Chloride 96 L Carbon Dioxide 38 H Creatinine 1.49 H Est GFR ( Amer) 41 L Est GFR (MDRD) Non-Af 34 L Glucose 176 H Calcium 11.0 H Creatine Kinase < 20 L NT-Pro-B Natriuret Pep 949 H Total Protein 6.0 L Albumin 3.1 L Discharge - Discharge Clinical Impression: COPD with acute exacerbation, Precordial chest pain Disposition: ADMITTED INPATIENT Admitting Provider: Vickie (Hospitalist) Unit Admitted: Telemetry Referrals: ARASELI AGUILAR MD [Primary Care Provider] - Follow up as needed
--- NOTE | 2019-05-04 21:04 | PDOC H&P ---
History of Present Illness Admission Date/PCP: 06/04/2019 20:22 ARASELI AGUILAR MD Patient complains of: Dyspnea History of Present Illness: TRENTON MCCOY is a 73 year old female who presented to the emergency room via EMS with a 5-day history of dyspnea. She admits progressively worsening dyspnea becoming severe today and accompanied by several days of a cough productive of greenish sputum and tightness across her chest beginning this morning. She was under treatment by her primary care provider for a "pneumonia", taking oral antibiotics. She feels that she is worsened rather than improved despite the care she had received. She admits prior similar episodes related to her COPD and is on continuous oxygen therapy at home. The nebulizer treatment a dministered by EMS improved her symptoms to the point where she felt well by the time she arrived in the emergency room. She has not identified any additional aggravating or ameliorating factors for her dyspnea. In the emergency room she was found to have an initial cardiac enzyme evaluation and EKG which did not reveal any evidence of acute myocardial ischemia or injury. She was noted to have an acute kidney injury, a chronically elevated BNP at her usual baseline and a stable chronic anemia. She was subsequently admitted for further evaluation and treatment. Past Medical History Cardiac Medical History: Reports: Atrial Fibrillation, Congestive Heart Failure, Coronary Artery Disease, Myocardial Infarction, Hypertension Denies: DVT, Hyperlipidema, Pulmonary Embolism Pulmonary Medical History: Reports: Asthma, Bronchitis, Chronic Obstructive Pulmonary Disease (COPD), Pneumonia, Respiratory Failure - Chronic respiratory failure Denies: Sleep Apnea, Tuberculosis EENT Medical History: Denies: Cataracts, Ears - Hearing aids Neurological Medical History: Denies: Hemorrhagic CVA, Ischemic CVA, Seizures Endocrine Medical History: Reports: Diabetes Mellitus Type 2, Hypothyroidism Denies: Diabetes Mellitus Type 1, Hyperthyroidism, Obesity Renal/ Medical History: Denies: Chronic Kidney Disease, Nephrolithiasis Malignancy Medical History: Reports: Lung Cancer - 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 GI Medical History: Reports: Gastroesophageal Reflux Disease Denies: Cirrhosis, Hepatitis Musculoskeltal Medical History: Reports: Arthritis, Gout Skin Medical History: Denies: Eczema, Psoriasis Psychiatric Medical History: Reports: Dementia, Depression, Tobacco Dependency Denies: Alcohol Dependency, Bipolar Disorder, Substance Abuse Traumatic Medical History: Reports: None Hematology: Reports: Anemia, Bleeding Tendencies Infectious Medical History: Reports: Clostridium Difficile Past Surgical History Past Surgical History: Reports: Cholecystectomy, Orthopedic Surgery - Foot surgery, Other - Bilateral cataract surgery Social History Information Source: Patient Lives with: Family Smoking Status: Former Smoker Electronic Cigarette use?: No Frequency of Alcohol Use: None Hx Recreational Drug Use: No Drugs: None Hx Prescription Drug Abuse: No - Advance Directive Resuscitation Status: Full Code Surrogate healthcare decision maker:: Trenton Romeo Family History Family History: COPD, Malignancy - Lung cancer Parental Family History Reviewed: Yes Children Family History Reviewed: No Sibling(s) Family History Reviewed.: Yes Medication/Allergy Home Medications: Albuterol Sulfate [Ventolin 0.083% Neb 2.5 mg/3 mL Ampul] 1 vial NEB RTQ8 04/05/19 Budesonide/Formoterol Fumarate [Symbicort HFA 160-4.5 mcg Inhaler 6 gm] 2 puff IH Q12 04/05/19 Diltiazem HCl [Cardizem 30 mg Tablet] 30 mg PO Q8 04/05/19 Fluticasone/Salmeterol [Advair 250-50 Diskus 14 Dose/Diskus] 1 puff IH Q12 04/05/19 Furosemide [Lasix 20 mg Tablet] 20 mg PO DAILY 04/05/19 Ibuprofen [Motrin 800 mg Tablet] 800 mg PO TID 04/05/19 Levothyroxine Sodium [Synthroid 0.05 mg Tablet] 0.1 mg PO Q6AM 04/05/19 Potassium Chloride [Klor-Con 10 Meq Capsule ER] 10 meq PO DAILY 04/05/19 Sertraline HCl [Zoloft] 25 mg PO DAILY 04/05/19 Prednisone 10 mg PO DAILY #21 tab.ds.pk 04/07/19 Ciprofloxacin HCl [Cipro 500 mg Tablet] 500 mg PO BID #10 tablet 04/08/19 Nitrofurantoin Macrocrystal [Nitrofurantoin] 50 mg PO Q6H #28 capsule 04/08/19 Doxycycline Hyclate 100 mg PO BID #14 capsule 04/16/19 Nystatin 1 applic MC QID #1 powder.ea. 04/16/19 Prednisone [Deltasone 20 mg Tablet] 40 mg PO DAILY #10 tablet 04/16/19 Allergies/Adverse Reactions: azithromycin Allergy (Verified 12/30/18 17:18) cephalexin Allergy (Verified 12/30/18 17:18) Penicillins Allergy (Verified 12/30/18 17:18) amoxicillin [Amoxicillin] Adverse Reaction (Verified 12/30/18 17:18) visual hallucinations erythromycin base [Erythromycin Base] Adverse Reaction (Verified 12/30/18 17:18) visual hallucinations Potassium Clavulanate * [From Augmentin] Adverse Reaction (Verified 12/30/18 17:18) visual hallucinations Review of Systems Constitutional: ABSENT: chills, fever(s) Eyes: ABSENT: visual disturbances, other - Eye pain Ears: ABSENT: hearing changes, other - Ear pain Nose, Mouth, and Throat: ABSENT: mouth pain, sore throat Cardiovascular: PRESENT: as per HPI, chest pain - Chest tightness. ABSENT: palpitations Respiratory: PRESENT: as per HPI, cough, dyspnea, sputum. ABSENT: hemoptysis Gastrointestinal: ABSENT: abdominal pain, constipation, diarrhea, nausea, vomiting Genitourinary: ABSENT: dysuria, hematuria Musculoskeletal: ABSENT: back pain, joint swelling, muscle weakness Integumentary: ABSENT: pruritus, rash Neurological: ABSENT: confusion, convulsions, focal weakness, memory loss, syncope Psychiatric: ABSENT: anxiety, depression Endocrine: ABSENT: cold intolerance, heat intolerance Hematologic/Lymphatic: ABSENT: easy bleeding, easy bruising Allergic/Immunologic: ABSENT: seasonal rhinorrhea Physical Exam Vital Signs: Temp Pulse Resp BP Pulse Ox 97.9 F 14 102/69 99 05/04/19 18:02 05/04/19 18:02 05/04/19 18:02 05/04/19 18:02 Intake & Output 05/02/19 05/03/19 05/04/19 23:59 23:59 23:59 Weight 81.4 kg General appearance: PRESENT: no acute distress, cooperative Head exam: PRESENT: atraumatic, normocephalic Eye exam: PRESENT: conjunctiva pink. ABSENT: conjunctival injection, scleral icterus Ear exam: PRESENT: normal external ear exam. ABSENT: bleeding, drainage Mouth exam: PRESENT: dry mucosa, neck supple Neck exam: ABSENT: thyromegaly, tracheal deviation Respiratory exam: PRESENT: decreased breath sounds - Moderately decreased breath sounds throughout all curtis consistent with moderate to severe COPD, prolonged expiratory phas - Mildly prolonged expiratory phase noted, symmetrical, unlabored, wheezes - Mild expiratory wheezes noted Cardiovascular exam: PRESENT: RRR. ABSENT: clicks, gallop, rubs Pulses: PRESENT: normal radial pulses, normal dorsalis pedis pul Vascular exam: PRESENT: normal capillary refill. ABSENT: pallor GI/Abdominal exam: PRESENT: normal bowel sounds, soft Rectal exam: PRESENT: deferred Extremities exam: ABSENT: joint swelling, pedal edema Musculoskeletal exam: ABSENT: deformity, dislocation Neurological exam: PRESENT: alert, oriented to person, oriented to place, oriented to time, oriented to situation, CN II-XII grossly intact. ABSENT: motor sensory deficit Psychiatric exam: PRESENT: appropriate affect, normal mood Skin exam: PRESENT: dry, intact, warm. ABSENT: jaundice, rash, urticaria Results Laboratory Results: 05/04/19 17:55 05/04/19 17:55 05/04/19 05/04/19 05/04/19 17:55 17:55 17:55 WBC 6.5 RBC 2.85 L Hgb 9.1 L Hct 27.8 L MCV 98 H MCH 32.0 MCHC 32.7 RDW 17.2 H Plt Count 270 Seg Neutrophils % 89.4 H Sodium 142.4 Potassium 4.0 Chloride 96 L Carbon Dioxide 38 H Anion Gap 8 BUN 15 Creatinine 1.49 H Est GFR ( Amer) 41 L Glucose 176 H Calcium 11.0 H Magnesium 1.9 Total Bilirubin 0.2 AST 19 Alkaline Phosphatase 56 Total Protein 6.0 L Albumin 3.1 L TSH 0.68 05/04/19 05/04/19 17:55 17:55 Creatine Kinase < 20 L CK-MB (CK-2) 0.42 Troponin I < 0.012 NT-Pro-B Natriuret Pep 949 H Impressions: Chest X-Ray 05/04/19 17:57 IMPRESSION: NO ACUTE RADIOGRAPHIC FINDING IN THE CHEST. Assessment and Plan - Diagnosis (1) COPD exacerbation Is this a current diagnosis for this admission?: Yes (2) Acute and chronic respiratory failure with hypoxia Is this a current diagnosis for this admission?: Yes (3) MARY LOU (acute kidney injury) Is this a current diagnosis for this admission?: Yes (4) Coronary artery disease Qualifiers: Coronary Disease-Associated Artery/Lesion type: [place] artery [place] vs. transplanted heart: [place] heart Associated angina: angina presence unspecified Qualified Code(s): I25.10 - Atherosclerotic heart disease of [place] coronary artery without angina pectoris Is this a current diagnosis for this admission?: Yes (5) Diabetes mellitus type 2 in nonobese Is this a current diagnosis for this admission?: Yes (6) Hypothyroidism (acquired) Is this a current diagnosis for this admission?: Yes (7) Small cell lung cancer Is this a current diagnosis for this admission?: Yes (8) History of radiation therapy Is this a current diagnosis for this admission?: Yes (9) History of chemotherapy Is this a current diagnosis for this admission?: Yes (10) History of cancer metastatic to brain Is this a current diagnosis for this admission?: Yes (11) Opiate dependence Qualifiers: Substance use status: uncomplicated Qualified Code(s): F11.20 - Opioid dependence, uncomplicated Is this a current diagnosis for this admission?: Yes (12) Chronic back pain Qualifiers: Back pain location: back pain in unspecified location Back pain laterality: midline Qualified Code(s): M54.9 - Dorsalgia, unspecified; G89.29 - Other chronic pain Is this a current diagnosis for this admission?: Yes (13) GERD (gastroesophageal reflux disease) Qualifiers: Esophagitis presence: esophagitis presence not specified Qualified Code(s): K21.9 - Gastro-esophageal reflux disease without esophagitis Is this a current diagnosis for this admission?: Yes (14) Hypercalcemia Is this a current diagnosis for this admission?: Yes - Plan Summary Summary: Patient will be admitted to telemetry and will be treated with aggressive pulmonary toilet utilizing Xopenex, Atrovent, Pulmicort and Mucomyst nebulizer treatments. She will be given IV Solu-Medrol and will be maintained at adequate oxygenation utilizing supplemental oxygen via nasal cannula with possible use of noninvasive airway pressure support devices such as CPAP or BiPAP. She will be treated with antibiotic therapy once it can be established what her home therapy (not working) was. Serial cardiac enzymes will be obtained to assess her chest pain/tightness across her chest. Daily CBCs, metabolic profiles and magnesium levels will be obtained. Patient will receive IV fluids to treat her acute kidney injury. She will be maintained on her current chronic medications as appropriate throughout her hospital stay. She will be treated with a diabetic/cardiac/prerenal diet. Before meals and at bedtime Accu-Cheks will be performed with a sliding scale insulin for hyperglycemia and a hypoglycemic protocol available. - Time Time Spent with patient: 25-34 minutes Medications reviewed and adjusted accordingly: Yes Anticipated discharge: Home with Homehealth - Inpatient Certification Based on my medical assessment, after consideration of the patient's comorbidities, presenting symptoms, or acuity I expect that the services needed warrant INPATIENT care.: Yes I certify that my determination is in accordance with my understanding of Medicare's requirements for reasonable and necessary INPATIENT services [42 CFR 412.3e].: Yes Medical Necessity: Failure to Improve With Outpatient Therapy, Significant Comorbidiites Make Outpatient Treatment Too Risky, Need Close Monitoring Due to Risk of Patient Decompensation, Need For IV Fluids, Need For Continuous Telemetry Monitoring, Need for Nebulizer Therapy and Monitoring of Response, Risk of Complication if Not Cared For in Hospital
[2019-05-04] MEDS ORDERED: ONDANSETRON HCL INJ/PF 4 MG/2 ML SDV IV PRN (21:05)
[2019-05-04] MEDS ORDERED: MAGNESIUM HYDROXIDE SUSP 30 ML UDCUP PO PRN (21:05)
[2019-05-04] MEDS ORDERED: MAG HYDROX/AL HYDROX/SIMETH SUSP 30 ML UDCUP PO PRN (21:05)
[2019-05-04] MEDS ORDERED: LEVALBUTEROL HCL NEB 0.63 MG/3 ML AMPUL NEB PRN (21:05)
[2019-05-04] MEDS ORDERED: TEMAZEPAM 15 MG CAPSULE PO PRN (21:05)
[2019-05-04] MEDS ORDERED: HYDRALAZINE HCL INJ/PF 20 MG/1 ML SDV IV PRN (21:11)
[2019-05-04] MEDS ORDERED: MORPHINE SULFATE 10 MG/ML INJ IV PRN ×4 (21:11→22:20)
[2019-05-04] MEDS ORDERED: GLUCAGON,HUMAN RECOMB 1 MG INJ IM PRN (21:14)
[2019-05-04] MEDS ORDERED: DEXTROSE 50%-WATER 25 GM/50 ML DISP.SYRIN IV PRN ×2 (21:14)
[2019-05-04] MEDS ORDERED: DEXTROSE 40% GEL 15 GM TUBE PO PRN ×2 (21:14)
[2019-05-04] MEDS ORDERED: IBUPROFEN 800 MG TABLET PO ONE (22:30)
[2019-05-04] MEDS: RINGERS SOLUTION,LACTATED 1,000 ML IV PRN (22:30)
[2019-05-04 22:43] LABS: CREATINE KINASE MB 0.33 ng/mL (<4.55)
[2019-05-04 22:45] LABS: TROPONIN I < 0.012 ng/mL
[2019-05-04] MEDS: HEPARIN SOD (PORCINE) 5,000 UNIT/ML 1 ML VIAL SUBCUT SCH (23:26)
[2019-05-04] MEDS: SUCRALFATE 1 GM TABLET PO SCH (23:27)
[2019-05-04] MEDS: METOCLOPRAMIDE HCL 10 MG TABLET PO SCH (23:27)
[2019-05-04] MEDS: DILTIAZEM HCL 30 MG TABLET PO SCH (23:27)
[2019-05-04] MEDS: FAMOTIDINE 20 MG TABLET PO SCH (23:27)
[2019-05-05] MEDS: IPRATROPIUM BROMIDE 0.02% NEB 0.5 MG/2.5 ML AMPUL NEB SCH ×3 (00:17→16:07)
[2019-05-05] MEDS: LEVALBUTEROL HCL NEB 1.25 MG/3 ML AMPUL NEB SCH ×3 (00:17→16:07)
[2019-05-05 04:33] LABS: HEMATOCRIT 25.6 % (36.0-47.0); HEMOGLOBIN 8.6 g/dL (12.0-15.5); MEAN CORPUSCULAR HEMOGLOBIN 32.2 pg (27.0-33.4); MEAN CORPUSCULAR HGB CONC 33.6 g/dL (32.0-36.0); MEAN CORPUSCULAR VOLUME 96 fl (80-97); PLATELET COUNT 234 10^3/uL (150-450); RED BLOOD COUNT 2.68 10^6/uL (3.72-5.28); RED CELL DISTRIBUTION WIDTH 17.3 % (11.5-14.0); WHITE BLOOD COUNT 5.6 10^3/uL (4.0-10.5)
[2019-05-05 04:56] LABS: ANION GAP 7 (5-19); BLOOD UREA NITROGEN 17 mg/dL (7-20); CALCIUM 10.6 mg/dL (8.4-10.2); CARBON DIOXIDE 36 mmol/L (22-30); CHLORIDE 97 mmol/L (98-107); GLUCOSE 230 mg/dL (75-110); POTASSIUM 4.7 mmol/L (3.6-5.0)
[2019-05-05 05:05] LABS: CREATINE KINASE MB 0.44 ng/mL (<4.55)
[2019-05-05 05:11] LABS: TROPONIN I < 0.012 ng/mL
[2019-05-05] MEDS: METHYLPREDNISOLONE INJ 40 MG/1 ML SDV IV SCH ×3 (05:35→17:08)
[2019-05-05] MEDS: DILTIAZEM HCL 30 MG TABLET PO SCH ×3 (05:36→23:00)
[2019-05-05] MEDS: HEPARIN SOD (PORCINE) 5,000 UNIT/ML 1 ML VIAL SUBCUT SCH ×3 (05:36→23:00)
[2019-05-05] MEDS: LEVOTHYROXINE SODIUM 0.1 MG TABLET PO SCH (05:37)
[2019-05-05] MEDS ORDERED: IBUPROFEN 800 MG TABLET PO SCH (06:00)
[2019-05-05] MEDS: RINGERS SOLUTION,LACTATED 1,000 ML IV PRN (06:52)
[2019-05-05] MEDS: SUCRALFATE 1 GM TABLET PO SCH ×4 (07:50→23:00)
[2019-05-05] MEDS: INSULIN REG, HUMAN 100 UNIT/ML 3 ML VIAL (PYX) SUBCUT SCH ×4 (07:52→23:01)
[2019-05-05] MEDS: ACETAMINOPHEN 325 MG TABLET PO PRN ×2 (07:59→14:43)
[2019-05-05] MEDS: BUDESONIDE NEB 0.5 MG/2 ML AMPUL NEB SCH ×2 (08:11→19:58)
[2019-05-05] MEDS: ACETYLCYSTEINE 20% SOLN 800 MG/4 ML VIAL.NEB NEB SCH ×2 (08:14→19:58)
--- NOTE | 2019-05-05 08:51 | EKG REPORT ---
SEVERITY:- ABNORMAL ECG - SINUS TACHYCARDIA RBBB AND LAFB : Confirmed by: Susan Mishra MD 05-May-2019 08:51:14
[2019-05-05] MEDS: FAMOTIDINE 20 MG TABLET PO SCH ×2 (10:02→23:00)
[2019-05-05] MEDS: DOCUSATE SODIUM 100 MG CAPSULE PO SCH ×2 (10:02→17:08)
[2019-05-05] MEDS: METOCLOPRAMIDE HCL 10 MG TABLET PO SCH ×4 (10:03→23:00)
[2019-05-05] MEDS: DOXYCYCLINE HYCLATE 100 MG TABLET PO SCH ×2 (10:03→17:08)
[2019-05-05 11:01] LABS: CREATINE KINASE MB 0.49 ng/mL (<4.55); TROPONIN I < 0.012 ng/mL
--- NOTE | 2019-05-05 11:36 | PDOC PROGRESS REPORT ---
Subjective Progress Note for:: 05/05/19 Subjective:: 73 year old female who presented to the emergency room via EMS with a 5-day history of dyspnea. She admits progressively worsening dyspnea becoming severe today and accompanied by several days of a cough productive of greenish sputum and tightness across her chest beginning this morning. She was under treatment by her primary care provider for a "pneumonia", taking oral antibiotics. She feels that she is worsened rather than improved despite the care she had r eceived. She admits prior similar episodes related to her COPD and is on continuous oxygen therapy at home. The nebulizer treatment administered by EMS improved her symptoms to the point where she felt well by the time she arrived in the emergency room. She has not identified any additional aggravating or ameliorating factors for her dyspnea. In the emergency room she was found to have an initial cardiac enzyme evaluation and EKG which did not reveal any evidence of acute myocardial ischemia or injury. She was noted to have an acute kidney injury, a chronically elevated BNP at her usual baseline and a stable chronic anemia. She was subsequently admitted for further evaluation and treat ment. 05/[id number]-old female with history of COPD admitted for COPD exacerbation. Comfortably in the bed not distressed. Communicating well. No acute events since the admission. Reason For Visit: ACUTE EXACERBATION OF COPD,CHEST TIGHTNESS,MARY LOU Physical Exam Vital Signs: Temp Pulse Resp BP Pulse Ox 98.4 F 97 18 108/49 L 98 05/05/19 00:00 05/05/19 07:00 05/05/19 00:21 05/05/19 00:00 05/05/19 00:21 Intake & Output 05/04/19 05/05/19 05/06/19 06:59 06:59 06:59 Intake Total 1260 237 Output Total 7 Balance 1253 237 Weight 77.7 kg General appearance: PRESENT: no acute distress, cooperative, obese Head exam: PRESENT: atraumatic Eye exam: PRESENT: PERRLA Ear exam: PRESENT: normal external ear exam Mouth exam: PRESENT: neck supple Teeth exam: PRESENT: poor dentation Neck exam: ABSENT: carotid bruit, JVD, lymphadenopathy, thyromegaly Respiratory exam: PRESENT: decreased breath sounds, wheezes Cardiovascular exam: PRESENT: RRR. ABSENT: diastolic murmur, rubs, systolic murmur GI/Abdominal exam: PRESENT: normal bowel sounds, soft. ABSENT: distended, guarding, mass, organolmegaly, rebound, tenderness Rectal exam: PRESENT: deferred Extremities exam: PRESENT: full ROM. ABSENT: calf tenderness, clubbing, pedal edema Neurological exam: PRESENT: alert, awake, oriented to person, oriented to place, oriented to time, oriented to situation, CN II-XII grossly intact. ABSENT: motor sensory deficit Psychiatric exam: PRESENT: appropriate affect, normal mood. ABSENT: homicidal ideation, suicidal ideation Results Laboratory Results: 05/05/19 03:50 05/05/19 03:50 05/04/19 05/04/19 05/04/19 17:55 17:55 17:55 WBC 6.5 RBC 2.85 L Hgb 9.1 L Hct 27.8 L MCV 98 H MCH 32.0 MCHC 32.7 RDW 17.2 H Plt Count 270 Seg Neutrophils % 89.4 H Sodium 142.4 Potassium 4.0 Chloride 96 L Carbon Dioxide 38 H Anion Gap 8 BUN 15 Creatinine 1.49 H Est GFR ( Amer) 41 L Glucose 176 H Calcium 11.0 H Magnesium 1.9 Total Bilirubin 0.2 AST 19 Alkaline Phosphatase 56 Total Protein 6.0 L Albumin 3.1 L TSH 0.68 05/05/19 05/05/19 03:50 03:50 WBC 5.6 RBC 2.68 L Hgb 8.6 L Hct 25.6 L MCV 96 MCH 32.2 MCHC 33.6 RDW 17.3 H Plt Count 234 Seg Neutrophils % Sodium 140.4 Potassium 4.7 Chloride 97 L Carbon Dioxide 36 H Anion Gap 7 BUN 17 Creatinine 1.46 H Est GFR ( Amer) 42 L Glucose 230 H Calcium 10.6 H Magnesium 2.0 Total Bilirubin AST Alkaline Phosphatase Total Protein Albumin TSH 05/04/19 05/04/19 05/04/19 17:55 17:55 21:50 Creatine Kinase < 20 L < 20 L CK-MB (CK-2) 0.42 Troponin I < 0.012 NT-Pro-B Natriuret Pep 949 H 05/04/19 05/05/19 05/05/19 21:50 03:50 03:50 Creatine Kinase < 20 L CK-MB (CK-2) 0.33 0.44 Troponin I < 0.012 < 0.012 NT-Pro-B Natriuret Pep 05/05/19 05/05/19 10:07 10:07 Creatine Kinase < 20 L CK-MB (CK-2) 0.49 Troponin I < 0.012 NT-Pro-B Natriuret Pep Impressions: Chest X-Ray 05/04/19 17:57 IMPRESSION: NO ACUTE RADIOGRAPHIC FINDING IN THE CHEST. Assessment and Plan - Diagnosis (1) COPD exacerbation Is this a current diagnosis for this admission?: Yes (2) Acute and chronic respiratory failure with hypoxia Is this a current diagnosis for this admission?: Yes (3) MARY LOU (acute kidney injury) Is this a current diagnosis for this admission?: Yes (4) Diabetes mellitus type 2 in nonobese Is this a current diagnosis for this admission?: Yes (5) Small cell lung cancer Is this a current diagnosis for this admission?: Yes (6) History of chemotherapy Is this a current diagnosis for this admission?: Yes (7) Hypercalcemia Is this a current diagnosis for this admission?: Yes (8) Chronic back pain Qualifiers: Back pain location: back pain in unspecified location Back pain laterality: midline Qualified Code(s): M54.9 - Dorsalgia, unspecified; G89.29 - Other chronic pain Is this a current diagnosis for this admission?: Yes (9) 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 She will be given IV Solu-Medrol and will be maintained at adequate oxygenation utilizing supplemental oxygen via nasal cannula with possible use of noninvasive airway pressure support devices such as CPAP or BiPAP. She will be treated with antibiotic therapy once it can be established what her home therapy (not working) was. Serial cardiac enzymes will be obtained to assess her chest pain/tightness across her chest. Daily CBCs, metabolic profiles and magnesium levels will be obtained. Patient will receive IV fluids to treat her acute kidney injury. She will be maintained on her current chronic medications as appropriate throughout her hospital stay. She will be treated with a diabe tic/cardiac/prerenal diet. Before meals and at bedtime Accu-Cheks will be performed with a sliding scale insulin for hyperglycemia and a hypoglycemic protocol available. 1.COPD exacerbation Patient has a history of COPD on examination bilateral entry with decreased bilateral wheezing is present. Patient is receiving aggressive pulmonary toilet with Xopenex, Atrovent, Pulmicort , Mucomyst. Patient is also receiving supplemental oxygen. Pulse ox is 92 to 94% on 2 L this morning. No need for BiPAP. Patient is on antibiotic therapy doxycycline 100 mg p.o. twice daily.. 2.acute on chronic respiratory failure with hypoxia 05/05/2019-pulse ox today is 96 to 98% on 2 L this morning. Acute on chronic respiratory failure with hypoxia resolving. 3.type 2 diabetes mellitus Has history of type 2 diabetes mellitus latest blood sugar was 221. Plan to check her hemoglobin A1c and to continue insulin sliding scale. He is receiving methylprednisolone 40 mg IV every 6 hours it may raise the blood sugars. 4.History of small cell lung cancer. 05/05/2019-patient has history of small cell lung cancer with metastasis to the brain. But the patient wants to be full code. She wants everything to be done. 5.acute kidney injury 05/05/2019-patient's baseline creatinine is around 0.88, admission creatinine is 1.46. AKA most likely secondary to prerenal causes resolving.
[2019-05-06] MEDS: IPRATROPIUM BROMIDE 0.02% NEB 0.5 MG/2.5 ML AMPUL NEB SCH ×3 (00:52→15:46)
[2019-05-06] MEDS: LEVALBUTEROL HCL NEB 1.25 MG/3 ML AMPUL NEB SCH ×3 (00:52→15:46)
[2019-05-06 05:26] LABS: HEMATOCRIT 25.5 % (36.0-47.0); HEMOGLOBIN 8.5 g/dL (12.0-15.5); MEAN CORPUSCULAR HEMOGLOBIN 31.9 pg (27.0-33.4); MEAN CORPUSCULAR HGB CONC 33.2 g/dL (32.0-36.0); MEAN CORPUSCULAR VOLUME 96 fl (80-97); PLATELET COUNT 256 10^3/uL (150-450); RED BLOOD COUNT 2.66 10^6/uL (3.72-5.28); RED CELL DISTRIBUTION WIDTH 17.2 % (11.5-14.0)
[2019-05-06] MEDS: HEPARIN SOD (PORCINE) 5,000 UNIT/ML 1 ML VIAL SUBCUT SCH ×3 (05:43→22:29)
[2019-05-06] MEDS: DILTIAZEM HCL 30 MG TABLET PO SCH ×3 (05:45→22:29)
[2019-05-06] MEDS: LEVOTHYROXINE SODIUM 0.1 MG TABLET PO SCH (05:45)
[2019-05-06 05:47] LABS: ANION GAP 6 (5-19); BLOOD UREA NITROGEN 30 mg/dL (7-20); CALCIUM 9.7 mg/dL (8.4-10.2); CARBON DIOXIDE 35 mmol/L (22-30); CHLORIDE 98 mmol/L (98-107); GLUCOSE 132 mg/dL (75-110); POTASSIUM 4.4 mmol/L (3.6-5.0)
[2019-05-06] MEDS: INSULIN REG, HUMAN 100 UNIT/ML 3 ML VIAL (PYX) SUBCUT SCH ×4 (08:08→22:21)
[2019-05-06] MEDS: SUCRALFATE 1 GM TABLET PO SCH ×4 (08:08→22:29)
[2019-05-06] MEDS: METOCLOPRAMIDE HCL 10 MG TABLET PO SCH ×4 (08:08→22:29)
[2019-05-06] MEDS: DOXYCYCLINE HYCLATE 100 MG TABLET PO SCH ×2 (08:08→17:56)
[2019-05-06] MEDS: BUDESONIDE NEB 0.5 MG/2 ML AMPUL NEB SCH ×2 (08:39→20:20)
[2019-05-06] MEDS: POTASSIUM CHLORIDE 10 MEQ CAPSULE.ER PO SCH (09:08)
[2019-05-06] MEDS: FUROSEMIDE 20 MG TABLET PO SCH (09:09)
[2019-05-06] MEDS: DOCUSATE SODIUM 100 MG CAPSULE PO SCH ×2 (09:09→17:56)
[2019-05-06] MEDS: SERTRALINE HCL 50 MG TABLET PO SCH (09:09)
[2019-05-06] MEDS: FAMOTIDINE 20 MG TABLET PO SCH ×2 (09:10→22:29)
[2019-05-06] MEDS: ACETAMINOPHEN 325 MG TABLET PO PRN (09:25)
[2019-05-06] MEDS: FLUTICASONE/VILANTEROL 200-25 MCG/DOSE IH SCH (09:25)
[2019-05-06] MEDS: NYSTATIN TOPICAL POWDER 15 GM TOP SCH ×2 (09:27→17:56)
[2019-05-06] MEDS: ACETYLCYSTEINE 20% SOLN 800 MG/4 ML VIAL.NEB NEB SCH ×2 (09:27→20:20)
[2019-05-06] MEDS ORDERED: (PENDING PHARMACY ID) (Potassium Chloride [Klor-Con M10] 10 MEQ) PO SCH (10:00)
[2019-05-06] MEDS ORDERED: (PENDING PHARMACY ID) (Fluticasone/Salmeterol 1 PUFF) IH SCH (10:00)
[2019-05-06] MEDS ORDERED: (PENDING PHARMACY ID) (Sertraline Hcl [Zoloft] 25 MG) PO SCH (10:00)
--- NOTE | 2019-05-06 10:36 | PDOC PROGRESS REPORT ---
Subjective Progress Note for:: 05/06/19 Subjective:: 73 year old female who presented to the emergency room via EMS with a 5-day history of dyspnea. She admits progressively worsening dyspnea becoming severe today and accompanied by several days of a cough productive of greenish sputum and tightness across her chest beginning this morning. She was under treatment by her primary care provider for a "pneumonia", taking oral antibiotics. She feels that she is worsened rather than improved despite the care she had r eceived. She admits prior similar episodes related to her COPD and is on continuous oxygen therapy at home. The nebulizer treatment administered by EMS improved her symptoms to the point where she felt well by the time she arrived in the emergency room. She has not identified any additional aggravating or ameliorating factors for her dyspnea. In the emergency room she was found to have an initial cardiac enzyme evaluation and EKG which did not reveal any evidence of acute myocardial ischemia or injury. She was noted to have an acute kidney injury, a chronically elevated BNP at her usual baseline and a stable chronic anemia. She was subsequently admitted for further evaluation and treat ment. 05/[id number]-woaq-old female with history of COPD admitted for COPD exacerbation. Comfortably in the bed not distressed. Communicating well. No acute events since the admission. 05/06/[id number]-bxdb-old female admitted with COPD exacerbation. Improving. Pulse ox is 100% on room air this morning. Patient is receiving pain medications on regular basis she still requesting for more pain medications. Patient wants to be a full code. Reason For Visit: ACUTE EXACERBATION OF COPD,CHEST TIGHTNESS,MARY LOU Physical Exam Vital Signs: Temp Pulse Resp BP Pulse Ox 98.1 F 87 20 166/67 H 99 05/06/19 08:00 05/06/19 08:39 05/06/19 08:39 05/06/19 08:00 05/06/19 08:39 Intake & Output 05/05/19 05/06/19 05/07/19 06:59 06:59 06:59 Intake Total 1260 2143 Output Total 7 Balance 1253 2143 Weight 77.7 kg 79.5 kg General appearance: PRESENT: no acute distress, obese Head exam: PRESENT: atraumatic Eye exam: PRESENT: PERRLA Ear exam: PRESENT: normal external ear exam Mouth exam: PRESENT: neck supple Teeth exam: PRESENT: poor dentation Neck exam: ABSENT: carotid bruit, JVD, lymphadenopathy, thyromegaly Respiratory exam: PRESENT: decreased breath sounds, wheezes Cardiovascular exam: PRESENT: RRR. ABSENT: diastolic murmur, rubs, systolic murmur GI/Abdominal exam: PRESENT: normal bowel sounds, soft. ABSENT: distended, guarding, mass, organolmegaly, rebound, tenderness Rectal exam: PRESENT: deferred Extremities exam: PRESENT: full ROM. ABSENT: calf tenderness, clubbing, pedal edema Neurological exam: PRESENT: alert, awake, oriented to person, oriented to place, oriented to time, oriented to situation, CN II-XII grossly intact. ABSENT: motor sensory deficit Psychiatric exam: PRESENT: appropriate affect, normal mood. ABSENT: homicidal ideation, suicidal ideation Results Laboratory Results: 05/06/19 04:49 05/06/19 04:49 05/06/19 05/06/19 04:49 04:49 WBC 12.0 H D RBC 2.66 L Hgb 8.5 L Hct 25.5 L MCV 96 MCH 31.9 MCHC 33.2 RDW 17.2 H Plt Count 256 Sodium 138.6 Potassium 4.4 Chloride 98 Carbon Dioxide 35 H Anion Gap 6 BUN 30 H Creatinine 1.56 H Est GFR ( Amer) 39 L Glucose 132 H Calcium 9.7 Magnesium 2.0 05/04/19 05/04/19 05/04/19 17:55 17:55 21:50 Creatine Kinase < 20 L < 20 L CK-MB (CK-2) 0.42 Troponin I < 0.012 NT-Pro-B Natriuret Pep 949 H 05/04/19 05/05/19 05/05/19 21:50 03:50 03:50 Creatine Kinase < 20 L CK-MB (CK-2) 0.33 0.44 Troponin I < 0.012 < 0.012 NT-Pro-B Natriuret Pep 05/05/19 05/05/19 10:07 10:07 Creatine Kinase < 20 L CK-MB (CK-2) 0.49 Troponin I < 0.012 NT-Pro-B Natriuret Pep Impressions: Chest X-Ray 05/04/19 17:57 IMPRESSION: NO ACUTE RADIOGRAPHIC FINDING IN THE CHEST. Assessment and Plan - Diagnosis (1) COPD exacerbation Is this a current diagnosis for this admission?: Yes (2) Acute and chronic respiratory failure with hypoxia Is this a current diagnosis for this admission?: Yes (3) MARY LOU (acute kidney injury) Is this a current diagnosis for this admission?: Yes (4) Diabetes mellitus type 2 in nonobese Is this a current diagnosis for this admission?: Yes (5) Small cell lung cancer Is this a current diagnosis for this admission?: Yes (6) History of chemotherapy Is this a current diagnosis for this admission?: Yes (7) Hypercalcemia Is this a current diagnosis for this admission?: Yes (8) Chronic back pain Qualifiers: Back pain location: back pain in unspecified location Back pain laterality: midline Qualified Code(s): M54.9 - Dorsalgia, unspecified; G89.29 - Other chronic pain Is this a current diagnosis for this admission?: Yes (9) 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 She will be given IV Solu-Medrol and will be maintained at adequate oxygenation utilizing supplemental oxygen via nasal cannula with possible use of noninvasive airway pressure support devices such as CPAP or BiPAP. She will be treated with antibiotic therapy once it can be established what her home therapy (not working) was. Serial cardiac enzymes will be obtained to assess her chest pain/tightness across her chest. Daily CBCs, metabolic profiles and magnesium levels will be obtained. Patient will receive IV fluids to treat her acute kidney injury. She will be maintained on her current chronic medications as cassy ropriate throughout her hospital stay. She will be treated with a diabetic/cardiac/prerenal diet. Before meals and at bedtime Accu-Cheks will be performed with a sliding scale insulin for hyperglycemia and a hypoglycemic protocol available. 1.COPD exacerbation Patient has a history of COPD on examination bilateral entry with decreased bilateral wheezing is present. Patient is receiving aggressive pulmonary toilet with Xopenex, Atrovent, Pulmicort , Mucomyst. Patient is also receiving supplemental oxygen. Pulse ox is 92 to 94% on 2 L this morning. No need for B iPAP. Patient is on antibiotic therapy doxycycline 100 mg p.o. twice daily.. 05/06/2019-patient admitted with COPD exacerbation treated with IV Solu-Medrol she is receiving pulmonary toilet with Atrovent, Xopenex, Mucomyst, Pulmicort. Pulse ox is 100% room air this morning. Chest bilateral it was decreased mild wheezing present bilaterally. 2.acute on chronic respiratory failure with hypoxia 05/05/2019-pulse ox today is 96 to 98% on 2 L this morning. Acute on chronic respiratory failure with hypoxia resolving. 01/2019-pulse ox today is 100% on 2 L. He acute on chronic respiratory failure with hypoxia resolved. 3.type 2 diabetes mellitus Has history of type 2 diabetes mellitus latest blood sugar was 221. Plan to check her hemoglobin A1c and to continue insulin sliding scale. He is receiving methylprednisolone 40 mg IV every 6 hours it may raise the blood sugars. 05/06/2019-patient's latest blood sugar was 233 patient received IV Solu-Medrol until yesterday. Hemoglobin A1c 6.7. 4.History of small cell lung cancer. 05/05/2019-patient has history of small cell lung cancer with metastasis to the brain. But the patient wants to be full code. She wants everything to be done. 5.acute kidney injury 05/05/2019-patient's baseline creatinine is around 0.88, admission creatinine is 1.46. AKA most likely secondary to prerenal causes resolving. 05/06/2019-patient serum creatinine today is 1.56. Stable.
[2019-05-07] MEDS: IPRATROPIUM BROMIDE 0.02% NEB 0.5 MG/2.5 ML AMPUL NEB SCH ×4 (00:03→23:35)
[2019-05-07] MEDS: LEVALBUTEROL HCL NEB 1.25 MG/3 ML AMPUL NEB SCH ×4 (00:04→23:35)
[2019-05-07] MEDS: LEVOTHYROXINE SODIUM 0.1 MG TABLET PO SCH (05:57)
[2019-05-07] MEDS: DILTIAZEM HCL 30 MG TABLET PO SCH ×3 (05:57→21:21)
[2019-05-07] MEDS: HEPARIN SOD (PORCINE) 5,000 UNIT/ML 1 ML VIAL SUBCUT SCH ×3 (05:57→21:21)
[2019-05-07 06:58] LABS: HEMATOCRIT 27.1 % (36.0-47.0); HEMOGLOBIN 9.1 g/dL (12.0-15.5); MEAN CORPUSCULAR HEMOGLOBIN 32.1 pg (27.0-33.4); MEAN CORPUSCULAR HGB CONC 33.5 g/dL (32.0-36.0); MEAN CORPUSCULAR VOLUME 96 fl (80-97); PLATELET COUNT 255 10^3/uL (150-450); RED BLOOD COUNT 2.83 10^6/uL (3.72-5.28); RED CELL DISTRIBUTION WIDTH 17.2 % (11.5-14.0); WHITE BLOOD COUNT 6.5 10^3/uL (4.0-10.5)
[2019-05-07 07:31] LABS: BLOOD UREA NITROGEN 32 mg/dL (7-20); CALCIUM 9.1 mg/dL (8.4-10.2); CARBON DIOXIDE 39 mmol/L (22-30); CHLORIDE 99 mmol/L (98-107); GLUCOSE 87 mg/dL (75-110); POTASSIUM 3.8 mmol/L (3.6-5.0)
[2019-05-07 07:44] LABS: ANION GAP 3 (5-19)
[2019-05-07] MEDS: BUDESONIDE NEB 0.5 MG/2 ML AMPUL NEB SCH ×2 (08:39→20:31)
[2019-05-07] MEDS: ACETYLCYSTEINE 20% SOLN 800 MG/4 ML VIAL.NEB NEB SCH ×3 (08:39→23:35)
[2019-05-07] MEDS: INSULIN REG, HUMAN 100 UNIT/ML 3 ML VIAL (PYX) SUBCUT SCH ×4 (09:54→21:21)
[2019-05-07] MEDS: FLUTICASONE/VILANTEROL 200-25 MCG/DOSE IH SCH (10:07)
[2019-05-07] MEDS: DOXYCYCLINE HYCLATE 100 MG TABLET PO SCH ×2 (10:07→17:33)
[2019-05-07] MEDS: SUCRALFATE 1 GM TABLET PO SCH ×4 (10:07→21:22)
[2019-05-07] MEDS: METOCLOPRAMIDE HCL 10 MG TABLET PO SCH ×4 (10:08→21:22)
[2019-05-07] MEDS: NYSTATIN TOPICAL POWDER 15 GM TOP SCH ×2 (10:08→17:32)
[2019-05-07] MEDS: SERTRALINE HCL 50 MG TABLET PO SCH (10:12)
[2019-05-07] MEDS: FUROSEMIDE 20 MG TABLET PO SCH (10:13)
[2019-05-07] MEDS: FAMOTIDINE 20 MG TABLET PO SCH ×2 (10:13→21:22)
[2019-05-07] MEDS: POTASSIUM CHLORIDE 10 MEQ CAPSULE.ER PO SCH (10:13)
[2019-05-07] MEDS: DOCUSATE SODIUM 100 MG CAPSULE PO SCH ×2 (10:13→17:32)
[2019-05-07 15:04] LABS: ARTERIAL BLOOD BASE EXCESS 11.5 mmol/L; ARTERIAL BLOOD FIO2 28%; ARTERIAL BLOOD H2CO3 1.78 mmol/L (1.05-1.35); ARTERIAL BLOOD HCO3 37.6 mmol/L (20-24); ARTERIAL BLOOD O2 SATURATION 96.2 % (94-98); ARTERIAL BLOOD PCO2 59.3 mmHg (35-45); ARTERIAL BLOOD PH 7.42 (7.35-7.45); ARTERIAL BLOOD TOTAL CO2 39.4 mmol/L (21-25)
[2019-05-07] MEDS: METHYLPREDNISOLONE INJ 40 MG/1 ML SDV IV SCH ×2 (17:29→21:21)
--- NOTE | 2019-05-07 19:22 | PDOC PROGRESS REPORT ---
Subjective Progress Note for:: 05/07/19 Subjective:: No acute event overnight. Upon in contour initially, she will was very sleepy. However upon reassessment, patient was awake and was oriented x3. She says her shortness of breath has slightly improved today. She sounded very wheezy bilaterally today. Patient is not on steroids today. Will restart IV steroids. Reason For Visit: ACUTE EXACERBATION OF COPD,CHEST TIGHTNESS,MARY LOU Physical Exam Vital Signs: Temp Pulse Resp BP Pulse Ox 97.8 F 88 18 117/64 99 05/07/19 15:39 05/07/19 16:06 05/07/19 16:06 05/07/19 15:39 05/07/19 16:06 Intake & Output 05/06/19 05/07/19 05/08/19 06:59 06:59 06:59 Intake Total 2143 980 120 Balance 2143 980 120 Weight 175 lb 4.28 oz 177 lb 4.026 oz General appearance: PRESENT: no acute distress, well-developed, well-nourished Head exam: PRESENT: atraumatic, normocephalic Eye exam: PRESENT: conjunctiva pink, EOMI, PERRLA. ABSENT: scleral icterus Ear exam: PRESENT: normal external ear exam Mouth exam: PRESENT: moist, tongue midline Neck exam: ABSENT: carotid bruit, JVD, lymphadenopathy, thyromegaly Respiratory exam: PRESENT: rhonchi, wheezes. ABSENT: rales Cardiovascular exam: PRESENT: RRR. ABSENT: diastolic murmur, rubs, systolic murmur Pulses: PRESENT: normal dorsalis pedis pul GI/Abdominal exam: PRESENT: normal bowel sounds, soft. ABSENT: distended, guarding, mass, organolmegaly, rebound, tenderness Rectal exam: PRESENT: deferred Neurological exam: PRESENT: alert, awake, oriented to person, oriented to place, oriented to time, oriented to situation, CN II-XII grossly intact. ABSENT: motor sensory deficit Results Laboratory Results: 05/07/19 06:40 05/07/19 06:40 05/07/19 05/07/19 05/07/19 06:40 06:40 13:11 WBC 6.5 RBC 2.83 L Hgb 9.1 L Hct 27.1 L MCV 96 MCH 32.1 MCHC 33.5 RDW 17.2 H Plt Count 255 Carbonic Acid 1.78 H HCO3/H2CO3 Ratio 21:1 ABG pH 7.42 ABG pCO2 59.3 H ABG pO2 84.0 ABG HCO3 37.6 H ABG O2 Saturation 96.2 ABG Base Excess 11.5 FiO2 28% Sodium 140.8 Potassium 3.8 Chloride 99 Carbon Dioxide 39 H Anion Gap 3 L BUN 32 H Creatinine 1.53 H Est GFR ( Amer) 40 L Glucose 87 Calcium 9.1 Magnesium 2.0 05/04/19 05/04/19 05/04/19 17:55 17:55 21:50 Creatine Kinase < 20 L < 20 L CK-MB (CK-2) 0.42 Troponin I < 0.012 NT-Pro-B Natriuret Pep 949 H 05/04/19 05/05/19 05/05/19 21:50 03:50 03:50 Creatine Kinase < 20 L CK-MB (CK-2) 0.33 0.44 Troponin I < 0.012 < 0.012 NT-Pro-B Natriuret Pep 05/05/19 05/05/19 10:07 10:07 Creatine Kinase < 20 L CK-MB (CK-2) 0.49 Troponin I < 0.012 NT-Pro-B Natriuret Pep Impressions: Chest X-Ray 05/04/19 17:57 IMPRESSION: NO ACUTE RADIOGRAPHIC FINDING IN THE CHEST. Assessment and Plan - Diagnosis (1) Acute and chronic respiratory failure with hypercapnia Is this a current diagnosis for this admission?: Yes Plan: Secondary to COPD exacerbation. (2) COPD with exacerbation Is this a current diagnosis for this admission?: Yes Plan: Restart IV Solu-Medrol. Continue breathing treatments. (3) Coronary artery disease Qualifiers: Is this a current diagnosis for this admission?: Yes - Time Time Spent with patient: 25-34 minutes
[2019-05-08] MEDS: METHYLPREDNISOLONE INJ 40 MG/1 ML SDV IV SCH ×2 (05:40→21:44)
[2019-05-08] MEDS: LEVOTHYROXINE SODIUM 0.1 MG TABLET PO SCH (05:40)
[2019-05-08] MEDS: DILTIAZEM HCL 30 MG TABLET PO SCH ×3 (05:40→21:46)
[2019-05-08] MEDS: HEPARIN SOD (PORCINE) 5,000 UNIT/ML 1 ML VIAL SUBCUT SCH ×3 (05:41→21:45)
[2019-05-08] MEDS: SUCRALFATE 1 GM TABLET PO SCH ×4 (08:01→21:45)
[2019-05-08] MEDS: METOCLOPRAMIDE HCL 10 MG TABLET PO SCH ×4 (08:01→21:46)
[2019-05-08] MEDS: INSULIN REG, HUMAN 100 UNIT/ML 3 ML VIAL (PYX) SUBCUT SCH ×4 (08:02→21:44)
[2019-05-08] MEDS: IPRATROPIUM BROMIDE 0.02% NEB 0.5 MG/2.5 ML AMPUL NEB SCH ×2 (08:04→16:07)
[2019-05-08] MEDS: LEVALBUTEROL HCL NEB 1.25 MG/3 ML AMPUL NEB SCH ×2 (08:04→16:07)
[2019-05-08] MEDS: ACETYLCYSTEINE 20% SOLN 800 MG/4 ML VIAL.NEB NEB SCH ×2 (08:04→21:32)
[2019-05-08] MEDS: BUDESONIDE NEB 0.5 MG/2 ML AMPUL NEB SCH ×2 (08:04→20:45)
[2019-05-08] MEDS: DOXYCYCLINE HYCLATE 100 MG TABLET PO SCH ×2 (09:19→18:03)
[2019-05-08] MEDS: DOCUSATE SODIUM 100 MG CAPSULE PO SCH ×2 (09:19→17:52)
[2019-05-08] MEDS: FLUTICASONE/VILANTEROL 200-25 MCG/DOSE IH SCH (09:19)
[2019-05-08] MEDS: POTASSIUM CHLORIDE 10 MEQ CAPSULE.ER PO SCH (09:20)
[2019-05-08] MEDS: FUROSEMIDE 20 MG TABLET PO SCH (09:20)
[2019-05-08] MEDS: NYSTATIN TOPICAL POWDER 15 GM TOP SCH ×2 (09:21→18:02)
[2019-05-08] MEDS: FAMOTIDINE 20 MG TABLET PO SCH ×2 (09:21→21:45)
[2019-05-08] MEDS: SERTRALINE HCL 50 MG TABLET PO SCH (09:21)
--- NOTE | 2019-05-08 13:40 | PDOC PROGRESS REPORT ---
Subjective Progress Note for:: 05/08/19 Subjective:: 05/07: Upon encounter initially, she will was very sleepy. However upon reassessment, patient was awake and was oriented x3. She says her shortness of breath has slightly improved today. She sounded very wheezy bilaterally today. Patient is not on steroids today. Will restart IV steroids. 05/08: No acute event overnight. This morning, she says she feels much better and she starting to return to her baseline. Wheezing has improved today. Will decrease IV steroids. Reason For Visit: ACUTE EXACERBATION OF COPD,CHEST TIGHTNESS,MARY LOU Physical Exam Vital Signs: Temp Pulse Resp BP Pulse Ox 98.1 F 86 17 133/66 H 97 05/08/19 07:40 05/08/19 08:04 05/08/19 08:04 05/08/19 07:40 05/08/19 08:04 Intake & Output 05/07/19 05/08/19 05/09/19 06:59 06:59 06:59 Intake Total 980 640 Balance 980 640 Weight 177 lb 4.026 oz 177 lb 14.609 oz General appearance: PRESENT: no acute distress, well-developed, well-nourished Head exam: PRESENT: atraumatic, normocephalic Eye exam: PRESENT: conjunctiva pink, EOMI, PERRLA. ABSENT: scleral icterus Ear exam: PRESENT: normal external ear exam Mouth exam: PRESENT: moist, tongue midline Neck exam: ABSENT: carotid bruit, JVD, lymphadenopathy, thyromegaly Respiratory exam: PRESENT: wheezes. ABSENT: rales, rhonchi Cardiovascular exam: PRESENT: RRR. ABSENT: diastolic murmur, rubs, systolic murmur Pulses: PRESENT: normal dorsalis pedis pul GI/Abdominal exam: PRESENT: normal bowel sounds, soft. ABSENT: distended, guarding, mass, organolmegaly, rebound, tenderness Rectal exam: PRESENT: deferred Extremities exam: PRESENT: full ROM. ABSENT: calf tenderness, clubbing, pedal edema Neurological exam: PRESENT: alert, awake, oriented to person, oriented to place, oriented to time, oriented to situation, CN II-XII grossly intact. ABSENT: motor sensory deficit Results Laboratory Results: 05/07/19 06:40 05/07/19 06:40 05/07/19 13:11 Carbonic Acid 1.78 H HCO3/H2CO3 Ratio 21:1 ABG pH 7.42 ABG pCO2 59.3 H ABG pO2 84.0 ABG HCO3 37.6 H ABG O2 Saturation 96.2 ABG Base Excess 11.5 FiO2 28% 05/04/19 05/04/19 05/04/19 17:55 17:55 21:50 Creatine Kinase < 20 L < 20 L CK-MB (CK-2) 0.42 Troponin I < 0.012 NT-Pro-B Natriuret Pep 949 H 05/04/19 05/05/19 05/05/19 21:50 03:50 03:50 Creatine Kinase < 20 L CK-MB (CK-2) 0.33 0.44 Troponin I < 0.012 < 0.012 NT-Pro-B Natriuret Pep 05/05/19 05/05/19 10:07 10:07 Creatine Kinase < 20 L CK-MB (CK-2) 0.49 Troponin I < 0.012 NT-Pro-B Natriuret Pep Impressions: Chest X-Ray 05/04/19 17:57 IMPRESSION: NO ACUTE RADIOGRAPHIC FINDING IN THE CHEST. Assessment and Plan - Diagnosis (1) Acute and chronic respiratory failure with hypercapnia Is this a current diagnosis for this admission?: Yes Plan: Secondary to COPD exacerbation. (2) COPD with exacerbation Is this a current diagnosis for this admission?: Yes Plan: 05/07: Restart IV Solu-Medrol. Continue breathing treatments. 05/08: Decrease solumedrol to 40 mg q12. (3) Coronary artery disease Qualifiers: Is this a current diagnosis for this admission?: Yes Plan: Stable. Continue home meds. - Time Time Spent with patient: 15-24 minutes
[2019-05-09] MEDS: IPRATROPIUM BROMIDE 0.02% NEB 0.5 MG/2.5 ML AMPUL NEB SCH ×3 (00:50→15:49)
[2019-05-09] MEDS: LEVALBUTEROL HCL NEB 1.25 MG/3 ML AMPUL NEB SCH ×3 (00:50→15:49)
[2019-05-09] MEDS: LEVOTHYROXINE SODIUM 0.1 MG TABLET PO SCH (06:28)
[2019-05-09] MEDS: HEPARIN SOD (PORCINE) 5,000 UNIT/ML 1 ML VIAL SUBCUT SCH ×2 (06:28→13:20)
[2019-05-09] MEDS: DILTIAZEM HCL 30 MG TABLET PO SCH ×2 (06:28→13:58)
[2019-05-09] MEDS: BUDESONIDE NEB 0.5 MG/2 ML AMPUL NEB SCH (08:03)
[2019-05-09] MEDS: ACETYLCYSTEINE 20% SOLN 800 MG/4 ML VIAL.NEB NEB SCH (08:03)
[2019-05-09] MEDS: INSULIN REG, HUMAN 100 UNIT/ML 3 ML VIAL (PYX) SUBCUT SCH ×3 (09:49→16:08)
[2019-05-09] MEDS: FAMOTIDINE 20 MG TABLET PO SCH (09:53)
[2019-05-09] MEDS: SERTRALINE HCL 50 MG TABLET PO SCH (09:53)
[2019-05-09] MEDS: METHYLPREDNISOLONE INJ 40 MG/1 ML SDV IV SCH (09:54)
[2019-05-09] MEDS: FUROSEMIDE 20 MG TABLET PO SCH (09:54)
[2019-05-09] MEDS: DOXYCYCLINE HYCLATE 100 MG TABLET PO SCH ×2 (09:54→17:10)
[2019-05-09] MEDS: DOCUSATE SODIUM 100 MG CAPSULE PO SCH ×2 (09:54→17:10)
[2019-05-09] MEDS: FLUTICASONE/VILANTEROL 200-25 MCG/DOSE IH SCH (09:54)
[2019-05-09] MEDS: POTASSIUM CHLORIDE 10 MEQ CAPSULE.ER PO SCH (09:54)
[2019-05-09] MEDS: NYSTATIN TOPICAL POWDER 15 GM TOP SCH ×2 (09:55→17:10)
[2019-05-09] MEDS: SUCRALFATE 1 GM TABLET PO SCH ×3 (09:55→16:21)
[2019-05-09] MEDS: METOCLOPRAMIDE HCL 10 MG TABLET PO SCH ×3 (09:55→16:21)
[2019-05-09 13:35] VITALS: BP 132/67
[2019-05-09 14:08] LABS: ANION GAP 6 (5-19); BLOOD UREA NITROGEN 31 mg/dL (7-20); CALCIUM 8.8 mg/dL (8.4-10.2); CARBON DIOXIDE 36 mmol/L (22-30); CHLORIDE 97 mmol/L (98-107); GLUCOSE 158 mg/dL (75-110); POTASSIUM 3.6 mmol/L (3.6-5.0)
--- NOTE | 2019-05-09 17:36 | PDOC DISCHARGE SUMMARY ---
Impression - Admit/DC Date/PCP Admission Date/Primary Care Provider: 05/04/19 20:49 ARASELI AGUILAR MD Discharge Date: 05/09/19 - Discharge Diagnosis (1) Acute and chronic respiratory failure with hypercapnia Is this a current diagnosis for this admission?: Yes (2) COPD with exacerbation Is this a current diagnosis for this admission?: Yes (3) Coronary artery disease Is this a current diagnosis for this admission?: Yes - Additional Information Resuscitation Status: Full Code Discharge Diet: Diabetic Discharge Activity: Activity As Tolerated, Balance Activity w/Rest Referrals: ARASELI AGUILAR MD [Primary Care Provider] - 05/22/19 1:45 pm Prescriptions: Prednisone [Deltasone 10 mg Tablet] 10 mg PO BID 5 Days #10 Tiotropium [place] [Spiriva Handihaler 5 Cap/Kit (18 Mcg/Cap)] 1 cap IH DAILY #30 capsule Budesonide/Formoterol Fumarate [Symbicort HFA 160-4.5 mcg Inhaler 6 gm] 2 puff IH Q12 #1 inhaler Home Medications: Diltiazem HCl [Cardizem 30 mg Tablet] 30 mg PO Q8 05/05/19 Fluticasone/Salmeterol [Advair 250-50 Diskus 14 Dose/Diskus] 1 puff IH Q12 05/05/19 Furosemide [Lasix 20 mg Tablet] 20 mg PO DAILY 05/05/19 Ipratropium/Albuterol Sulfate [Duoneb 3 ml Ampul] 3 ml NEB Q6HP PRN 05/05/19 Levothyroxine Sodium [Synthroid 0.05 mg Tablet] 0.05 mg PO Q6AM 05/05/19 Lorazepam [Ativan 1 mg Tablet] 0.5 mg PO Q12HP PRN 05/05/19 Nystatin [Mycostatin Topical Powder 15 gm] 1 applic TOP BID 05/05/19 Potassium Chloride [Klor-Con M10] 10 meq PO DAILY 05/05/19 Sertraline HCl [Zoloft] 25 mg PO DAILY 05/05/19 Budesonide/Formoterol Fumarate [Symbicort HFA 160-4.5 mcg Inhaler 6 gm] 2 puff IH Q12 #1 inhaler 05/09/19 Prednisone [Deltasone 10 mg Tablet] 10 mg PO BID 5 Days #10 05/09/19 Tiotropium [place] [Spiriva Handihaler 5 Cap/Kit (18 Mcg/Cap)] 1 cap IH DAILY #30 capsule 05/09/19 History of Present Illiness History of Present Illness: Admitting hospitalist's H&P: TRENTON MCCOY is a 73 year old female who presented to the emergency room via EMS with a 5-day history of dyspnea. She admits progressively worsening dyspnea becoming severe today and accompanied by several days of a cough productive of greenish sputum and tightness across her chest beginning this morning. She was under treatment by her primary care provider for a "pneumonia", taking oral antibiotics. She feels that she is worsened rather than improved despite the care she had received. She admits prior similar episodes related to her COPD and is on continuous oxygen therapy at home. The nebulizer treatment ad ministered by EMS improved her symptoms to the point where she felt well by the time she arrived in the emergency room. She has not identified any additional aggravating or ameliorating factors for her dyspnea. In the emergency room she was found to have an initial cardiac enzyme evaluation and EKG which did not reveal any evidence of acute myocardial ischemia or injury. She was noted to have an acute kidney injury, a chronically elevated BNP at her usual baseline and a stable chronic anemia. She was subsequently admitted for further evaluation and treatment. Hospital Course Hospital Course: Patient was admitted for COPD exacerbation. She was started on IV steroids and breathing treatments. She did gradually return to her baseline. She admits that she has not been using her Symbicort at home as she thought it was just an as needed medication. Educated patient that it is a maintenance inhaler. She will be discharged on 5 more days of prednisone. Also added Spiriva to her regimen. She will be discharged home and will resume her home health services. Physical Exam Vital Signs: Temp Pulse Resp BP Pulse Ox 98.8 F 87 20 110/57 L 97 05/09/19 12:53 05/09/19 15:49 05/09/19 15:49 05/09/19 12:53 05/09/19 15:49 Intake & Output 05/08/19 05/09/19 05/10/19 06:59 06:59 06:59 Intake Total 640 358 598 Balance 640 358 598 Weight 177 lb 14.609 oz 176 lb 12.972 oz 176 lb 12.972 oz General appearance: PRESENT: no acute distress, well-developed, well-nourished Head exam: PRESENT: atraumatic, normocephalic Eye exam: PRESENT: conjunctiva pink, EOMI, PERRLA. ABSENT: scleral icterus Ear exam: PRESENT: normal external ear exam Mouth exam: PRESENT: moist, tongue midline Neck exam: ABSENT: carotid bruit, JVD, lymphadenopathy, thyromegaly Respiratory exam: PRESENT: rhonchi, wheezes. ABSENT: rales Cardiovascular exam: PRESENT: RRR. ABSENT: diastolic murmur, rubs, systolic murmur Pulses: PRESENT: normal dorsalis pedis pul GI/Abdominal exam: PRESENT: normal bowel sounds, soft. ABSENT: distended, guarding, mass, organolmegaly, rebound, tenderness Rectal exam: PRESENT: deferred Extremities exam: PRESENT: full ROM. ABSENT: calf tenderness, clubbing, pedal edema Neurological exam: PRESENT: alert, awake, oriented to person, oriented to place, oriented to time, oriented to situation, CN II-XII grossly intact. ABSENT: motor sensory deficit Results Laboratory Results: WBC 6.5 10^3/uL (4.0-10.5) 05/07/19 06:40 RBC 2.83 10^6/uL (3.72-5.28) L 05/07/19 06:40 Hgb 9.1 g/dL (12.0-15.5) L 05/07/19 06:40 Hct 27.1 % (36.0-47.0) L 05/07/19 06:40 MCV 96 fl (80-97) 05/07/19 06:40 MCH 32.1 pg (27.0-33.4) 05/07/19 06:40 MCHC 33.5 g/dL (32.0-36.0) 05/07/19 06:40 RDW 17.2 % (11.5-14.0) H 05/07/19 06:40 Plt Count 255 10^3/uL (150-450) 05/07/19 06:40 Lymph % (Auto) 6.2 % (13-45) L 05/04/19 17:55 Warren % (Auto) 3.3 % (3-13) 05/04/19 17:55 Eos % (Auto) 0.9 % (0-6) 05/04/19 17:55 Baso % (Auto) 0.2 % (0-2) 05/04/19 17:55 Absolute Neuts (auto) 5.8 10^3/uL (1.7-8.2) 05/04/19 17:55 Absolute Lymphs (auto) 0.4 10^3/uL (0.5-4.7) L 05/04/19 17:55 Absolute Monos (auto) 0.2 10^3/uL (0.1-1.4) 05/04/19 17:55 Absolute Eos (auto) 0.1 10^3/uL (0.0-0.6) 05/04/19 17:55 Absolute Basos (auto) 0.0 10^3/uL (0.0-0.2) 05/04/19 17:55 Seg Neutrophils % 89.4 % (42-78) H 05/04/19 17:55 PT 13.1 SEC (11.4-15.4) 05/04/19 17:55 INR 0.99 05/04/19 17:55 APTT 26.3 SEC (23.5-35.8) 05/04/19 17:55 Carbonic Acid 1.78 mmol/L (1.05-1.35) H 05/07/19 13:11 HCO3/H2CO3 Ratio 21:1 05/07/19 13:11 ABG pH 7.42 (7.35-7.45) 05/07/19 13:11 ABG pCO2 59.3 mmHg (35-45) H 05/07/19 13:11 ABG pO2 84.0 mmHg (80-100) 05/07/19 13:11 ABG HCO3 37.6 mmol/L (20-24) H 05/07/19 13:11 ABG Total CO2 39.4 mmol/L (21-25) H 05/07/19 13:11 ABG O2 Saturation 96.2 % (94-98) 05/07/19 13:11 ABG Base Excess 11.5 mmol/L 05/07/19 13:11 FiO2 28% 05/07/19 13:11 Sodium 138.8 mmol/L (137-145) 05/09/19 13:08 Potassium 3.6 mmol/L (3.6-5.0) 05/09/19 13:08 Chloride 97 mmol/L (98-107) L 05/09/19 13:08 Carbon Dioxide 36 mmol/L (22-30) H 05/09/19 13:08 Anion Gap 6 (5-19) 05/09/19 13:08 BUN 31 mg/dL (7-20) H 05/09/19 13:08 Creatinine 1.15 mg/dL (0.52-1.25) 05/09/19 13:08 Est GFR ( Amer) 56 (>60) L 05/09/19 13:08 Est GFR (MDRD) Non-Af 46 (>60) L 05/09/19 13:08 Glucose 158 mg/dL (75-110) H 05/09/19 13:08 POC Glucose 138 mg/dL (70-110) H 05/09/19 15:39 Hemoglobin A1c % 6.7 % (4.7-6.0) H 05/06/19 04:49 Calcium 8.8 mg/dL (8.4-10.2) 05/09/19 13:08 Magnesium 2.0 mg/dL (1.6-2.3) 05/07/19 06:40 Total Bilirubin 0.2 mg/dL (0.2-1.3) 05/04/19 17:55 Direct Bilirubin 0.1 mg/dL (0.0-0.4) 05/04/19 17:55 Neonat Total Bilirubin Not Reportable 05/04/19 17:55 Neonat Direct Bilirubin Not Reportable 05/04/19 17:55 Neonat Indirect Bili Not Reportable 05/04/19 17:55 AST 19 U/L (14-36) 05/04/19 17:55 ALT 10 U/L (<35) 05/04/19 17:55 Alkaline Phosphatase 56 U/L (38-126) 05/04/19 17:55 Creatine Kinase < 20 U/L (30-135) L 05/05/19 10:07 CK-MB (CK-2) 0.49 ng/mL (<4.55) 05/05/19 10:07 Troponin I < 0.012 ng/mL 05/05/19 10:07 NT-Pro-B Natriuret Pep 949 pg/mL (<450) H 05/04/19 17:55 Total Protein 6.0 g/dL (6.3-8.2) L 05/04/19 17:55 Albumin 3.1 g/dL (3.5-5.0) L 05/04/19 17:55 TSH 0.68 uIU/mL (0.47-4.68) 05/04/19 17:55 05/04/19 05/04/19 05/05/19 17:55 21:50 03:50 CK-MB (CK-2) 0.42 0.33 0.44 Troponin I < 0.012 < 0.012 < 0.012 NT-Pro-B Natriuret Pep 949 H 05/05/19 10:07 CK-MB (CK-2) 0.49 Troponin I < 0.012 NT-Pro-B Natriuret Pep Impressions: Chest X-Ray 05/04/19 17:57 IMPRESSION: NO ACUTE RADIOGRAPHIC FINDING IN THE CHEST. Stroke Is this a Stroke Patient?: No Acute Heart Failure - Is this a Heart Failure Patient?: No
[2019-05-09] MEDS ORDERED: ACETYLCYSTEINE 20% SOLN 800 MG/4 ML VIAL.NEB NEB SCH (20:00)
== END 2019-05-09 19:30 | disposition home health service (06) | DRG 189 ==
LOC: ER 17:19 → EH 20:49 → 4S 22:55 → 4N 05-07 17:48
PROVIDERS: ADMIT Emergency Medicine; ATTEND Emergency Medicine
PROC: 5A09457 Assistance with Respiratory Ventilation, 24-96 Consecutive Hours, Continuous Positive Airway Pressure (ICD-10-PCS; principal; 2019-05-05)
DX: J96.22 Acute and chronic respiratory failure with hypercapnia (principal); J44.1 Chronic obstructive pulmonary disease with (acute) exacerbation; N17.9 Acute kidney failure, unspecified; F11.20 Opioid dependence, uncomplicated; J96.21 Acute and chronic respiratory failure with hypoxia; I25.10 Atherosclerotic heart disease of native coronary artery without angina pectoris; I10 Essential (primary) hypertension; I48.91 Unspecified atrial fibrillation; E11.9 Type 2 diabetes mellitus without complications; E03.9 Hypothyroidism, unspecified; K21.9 Gastro-esophageal reflux disease without esophagitis; M10.9 Gout, unspecified; F03.90 Unspecified dementia, unspecified severity, without behavioral disturbance, psychotic disturbance, mood disturbance, and anxiety; F32.9 Major depressive disorder, single episode, unspecified; M54.9 Dorsalgia, unspecified; G89.29 Other chronic pain; E66.9 Obesity, unspecified; E83.52 Hypercalcemia; I25.2 Old myocardial infarction; Z79.899 Other long term (current) drug therapy; Z99.81 Dependence on supplemental oxygen; Z85.118 Personal history of other malignant neoplasm of bronchus and lung; Z87.891 Personal history of nicotine dependence; Z80.1 Family history of malignant neoplasm of trachea, bronchus and lung; Z83.6 Family history of other diseases of the respiratory system; Z79.890 Hormone replacement therapy; Z88.1 Allergy status to other antibiotic agents; Z88.3 Allergy status to other anti-infective agents; Z88.0 Allergy status to penicillin; Z92.3 Personal history of irradiation; Z92.21 Personal history of antineoplastic chemotherapy; Z85.841 Personal history of malignant neoplasm of brain; Z79.4 Long term (current) use of insulin
CPT/HCPCS: 36415; 36600; 71045; 80048; 80053; 82550; 82553; 82803; 82962; 83036; 83735; 83880; 84443; 84484; 85025; 85027; 85610; 85730; 93005; 93010; 94640; 94660; 96374; 99285; J1644; J1815; J2405; J2920; J2930; J3490; J7120; J7620

== ENCOUNTER 2019-05-20 15:39 | Inpatient (IN) | payer MEDICARE, OTHER ==
--- NOTE | 2019-05-20 16:42 | RADIOLOGY REPORT (SQ) ---
EXAM DESCRIPTION: CHEST SINGLE VIEW COMPLETED DATE/TIME: 05/20/2019 4:23 pm REASON FOR STUDY: t1 db COMPARISON: Chest x-ray dated 05/04/2019. Chest CT dated 04/03/2019. EXAM PARAMETERS: NUMBER OF VIEWS: One view. TECHNIQUE: Single frontal radiographic view of the chest acquired. RADIATION DOSE: NA LIMITATIONS: None. FINDINGS: LUNGS AND PLEURA: No opacities, masses or pneumothorax. No pleural effusion. MEDIASTINUM AND HILAR STRUCTURES: Stable right perihilar prominence. HEART AND VASCULAR STRUCTURES: Heart upper limits of normal in size. Normal vasculature. BONES: No acute findings. HARDWARE: None in the chest. OTHER: No other significant finding. IMPRESSION: STABLE CHRONIC CHANGES. NO ACUTE RADIOGRAPHIC FINDING IN THE CHEST. TECHNICAL DOCUMENTATION: JOB ID: [id number] [employer]- All Rights Reserved Reading location - IP/workstation name: [email or web address]
[2019-05-20 16:47] LABS: HEMATOCRIT 29.3 % (36.0-47.0); HEMOGLOBIN 9.8 g/dL (12.0-15.5); MEAN CORPUSCULAR HEMOGLOBIN 32.2 pg (27.0-33.4); MEAN CORPUSCULAR HGB CONC 33.4 g/dL (32.0-36.0); MEAN CORPUSCULAR VOLUME 97 fl (80-97); PLATELET COUNT 225 10^3/uL (150-450); RED BLOOD COUNT 3.03 10^6/uL (3.72-5.28); RED CELL DISTRIBUTION WIDTH 16.7 % (11.5-14.0); WHITE BLOOD COUNT 9.6 10^3/uL (4.0-10.5)
[2019-05-20 16:54] LABS: APPEARANCE,URINE SLIGHTLY-CLOUDY; BILIRUBIN,URINE NEGATIVE (NEGATIVE); COLOR,URINE STRAW; GLUCOSE, URINE NEGATIVE (NEGATIVE); KETONES,URINE NEGATIVE (NEGATIVE); LEUKOCYTE ESTERASE,URINE NEGATIVE (NEGATIVE); NITRITE,URINE NEGATIVE (NEGATIVE); PROTEIN,URINE NEGATIVE (NEGATIVE); URINE SPECIFIC GRAVITY 1.004; UROBILINOGEN,URINE NEGATIVE mg/dL (<2.0)
--- NOTE | 2019-05-20 16:56 | EKG REPORT ---
SEVERITY:- ABNORMAL ECG - SINUS TACHYCARDIA VENTRICULAR PREMATURE COMPLEX PROBABLE LEFT ATRIAL ABNORMALITY RBBB AND LAFB LATERAL INFARCT, POSSIBLY ACUTE : Confirmed by: Susan Mishra MD 20-May-2019 16:55:07
[2019-05-20 17:02] LABS: ALBUMIN 3.3 g/dL (3.5-5.0); ALKALINE PHOSPHATASE 56 U/L (38-126); ASPARTATE AMINO TRANSFERASE 23 U/L (14-36); BILIRUBIN,DIRECT 0.1 mg/dL (0.0-0.4); BILIRUBIN,TOTAL 0.3 mg/dL (0.2-1.3); BLOOD UREA NITROGEN 30 mg/dL (7-20); CHLORIDE 91 mmol/L (98-107); GLUCOSE 101 mg/dL (75-110); POTASSIUM 3.8 mmol/L (3.6-5.0)
[2019-05-20 17:10] LABS: ANION GAP 5 (5-19); CREATINE KINASE < 20 U/L (30-135)
[2019-05-20 17:12] LABS: CALCIUM 13.2 mg/dL (8.4-10.2)
[2019-05-20 17:13] LABS: CARBON DIOXIDE 42 mmol/L (22-30)
[2019-05-20 17:14] LABS: CREATINE KINASE MB 0.59 ng/mL (<4.55); TROPONIN I 0.024 ng/mL
[2019-05-20 17:24] LABS: ABSOLUTE LYMPHOCYTES# (MANUAL) 0.3 10^3/uL (0.5-4.7); ABSOLUTE MONOCYTES # (MANUAL) 0.2 10^3/uL (0.1-1.4); BASOPHILS % (MANUAL) 0 % (0-2); EOSINOPHILS % (MANUAL) 2 % (0-6); LYMPHOCYTES % (MANUAL) 3 % (13-45); MONOCYTES % (MANUAL) 2 % (3-13); SEGMENTED NEUTROPHILS % (MAN) 93 % (42-78); TOTAL CELLS COUNTED 100
[2019-05-20 17:26] LABS: ANISOCYTOSIS 1+
[2019-05-20 17:27] LABS: PLATELET CLUMPS PRESENT; PLATELET COMMENT ADEQUATE; TEAR DROP CELLS SLIGHT
[2019-05-20] MEDS ORDERED: NORMAL SALINE 1000 ML 1,000 ML IV ONE (18:10)
--- NOTE | 2019-05-20 18:13 | ER Document Report ---
ED General - General Chief Complaint: Altered Mental Status Stated Complaint: AMS Time Seen by Provider: 05/20/19 16:43 Primary Care Provider: ARASELI AGUILAR MD [Primary Care Provider] - Follow up as needed Mode of Arrival: Medic Information source: Patient, Emergency Med Personnel TRAVEL OUTSIDE OF THE [place] IN LAST 30 DAYS: Yes - HPI Notes: Patient is brought in by medics for altered mental status. Patient was recently diagnosed with pneumonia. Today family called paramedics for altered mental status. It appears this is been going on for several days. A exact time of onset is not known. Patient is a poor historian due to her altered mental status. She just states that she is doing "not too damn good". She has had a cough. Apparently has had some shortness of breath. No known falls or trauma. No known fevers. Symptoms have apparently been severe. They have been constant. Nothing on the makes them better or worse. Patient cannot characterize the symptoms. - Related Data Allergies/Adverse Reactions: azithromycin Allergy (Verified 12/30/18 17:18) cephalexin Allergy (Verified 12/30/18 17:18) Penicillins Allergy (Verified 12/30/18 17:18) amoxicillin [Amoxicillin] Adverse Reaction (Verified 12/30/18 17:18) visual hallucinations erythromycin base [Erythromycin Base] Adverse Reaction (Verified 12/30/18 17:18) visual hallucinations Potassium Clavulanate * [From Augmentin] Adverse Reaction (Verified 12/30/18 17:18) visual hallucinations Past Medical History - General Information source: Patient, Emergency Med Personnel - Social History Smoking Status: Former Smoker Frequency of alcohol use: None Drug Abuse: None Family History: COPD, Malignancy - Lung cancer Patient has suicidal ideation: No Patient has homicidal ideation: No - Past Medical History Cardiac Medical History: Reports: Hx Atrial Fibrillation, Hx Congestive Heart Failure, Hx Coronary Artery Disease, Hx Heart Attack, Hx Hypertension Denies: Hx DVT, Hx Hypercholesterolemia, Hx Pulmonary Embolism Pulmonary Medical History: Reports: Hx Asthma, Hx Bronchitis, Hx COPD, Hx Pneumo sandra, Hx Respiratory Failure - Chronic respiratory failure Denies: Hx Sleep Apnea, Hx Tuberculosis Neurological Medical History: Denies: Hx Seizures, Hx Parkinson's Disease Endocrine Medical History: Reports: Hx Diabetes Mellitus Type 2, Hx Hypothyro idism. 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 Denies: Hx Cirrhosis, Hx Hepatitis, Hx Ulcer Musculoskeletal Medical History: Reports Hx Arthritis, Reports Hx Gout, Denies Hx Multiple Sclerosis, Reports Hx Musculoskeletal Deformity, Reports Hx Musc uloskeletal Trauma Skin Medical History: Denies Hx Eczema, Denies Hx Psoriasis Psychiatric Medical History: Reports: Hx Dementia, Hx Depression Denies: Hx Bipolar Disorder, Hx Schizophrenia Infectious Medical History: Reports: Hx C-Diff. Denies: Hx Hepatitis Past Surgical History: Reports: Hx Cholecystectomy, Hx Orthopedic Surgery - Foot surgery, Other - Bilateral cataract surgery - Immunizations Immunizations up to date: Yes Hx Diphtheria, Pertussis, Tetanus Vaccination: Yes Hx Pneumococcal Vaccination: 08/30/12 Review of Systems - Review of Systems -: Yes ROS unobtainable due to patient's medical condition - Review of symptoms is not obtainable due to patient's mental status Physical Exam - Vital signs Vitals: Resp Pulse Ox 21 H 100 05/20/19 15:48 05/20/19 15:48 Interpretation: Tachycardic - General General appearance: Lethargic In distress: Mild - HEENT Head: Normocephalic, Atraumatic Eyes: Normal Pupils: PERRL - Respiratory Respiratory status: No respiratory distress Chest status: Nontender Breath sounds: Rhonchi, Wheezing - Diffuse in all curtis Chest palpation: Normal - Cardiovascular Rhythm: Tachycardia Heart sounds: Normal auscultation Murmur: No - Abdominal Inspection: Normal Distension: No distension Bowel sounds: Normal Tenderness: Nontender Organomegaly: No organomegaly - Back Back: Normal, Nontender - Extremities General upper extremity: Normal inspection, Nontender, Normal color, Normal temperature General lower extremity: Normal inspection, Nontender, Edema - 2+ bilateral lower extremities, Normal color, Normal temperature. No: Sabine's sign - Neurological Cognition: Confused Orientation: Disoriented to place, Disoriented to time Raquel Coma Scale Eye Opening: Spontaneous [place] Coma Scale Verbal: Confused Raquel Coma Scale Motor: Obeys Commands [place] Coma Scale Total: 14 Speech: Normal - Psychological Associated symptoms: Depressed, Flat affect - Skin Skin Temperature: Warm Skin Moisture: Dry Skin Color: Normal Course - Re-evaluation Re-evalutation: 05/20/19 18:32 Patient is brought by ambulance secondary to altered mental status. Patient is obviously hypercalcemic with a value of 13.2. This is the most obvious source of her confusion. This was treated with fluids, calcitonin, and a bisph osphonate. Patient's vital signs have been stable other than a mild tachycardia. - Vital Signs Vital signs: Temp Pulse Resp BP Pulse Ox 18 130/79 H 97 05/20/19 18:01 05/20/19 18:01 05/20/19 18:01 - Laboratory Result Diagrams: 05/20/19 16:34 05/20/19 16:34 Laboratory results interpreted by me: 05/20/19 05/20/19 05/20/19 16:34 16:34 17:58 RBC 3.03 L Hgb 9.8 L Hct 29.3 L RDW 16.7 H Seg Neuts % (Manual) 93 H Lymphocytes % (Manual) 3 L Monocytes % (Manual) 2 L Abs Neuts (Manual) 8.9 H Abs Lymphs (Manual) 0.3 L Carbonic Acid 1.95 H ABG pCO2 64.9 H ABG pO2 103.5 H ABG HCO3 44.2 H ABG Total CO2 46.2 H Chloride 91 L Carbon Dioxide 42 H* BUN 30 H Creatinine 1.66 H Est GFR ( Amer) 36 L Est GFR (MDRD) Non-Af 30 L Calcium 13.2 H* Creatine Kinase < 20 L Total Protein 6.0 L Albumin 3.3 L - Diagnostic Test Radiology reviewed: Image reviewed, Reports reviewed - EKG Interpretation by Me EKG shows normal: Sinus rhythm Rate: Tachycardia - 114 Rhythm: NSR [place]/QRS: RBBB Critical Care Note - Critical Care Note Total time excluding time spent on procedures (mins): 50 Comments: Approximately 50 minutes of critical care time were spent on this patient. This included multiple evaluations and reexaminations of the patient. It included reviewing imaging and laboratories. It included reviewing old records. And included discussions with pharmacy and consultants. Discharge - Discharge Clinical Impression: Hypercalcemia, Lethargy Altered mental status Qualifiers: Altered mental status type: somnolence Qualified Code(s): R40.0 - Somnolence Condition: Serious Disposition: ADMITTED INPATIENT Admitting Provider: Vickie (Hospitalist) Unit Admitted: IMCU Referrals: ARASELI AGUILAR MD [Primary Care Provider] - Follow up as needed
[2019-05-20] MEDS ORDERED: CALCITONIN,SALMON,SYNTHETIC 400 UNIT/2 ML VIAL IM ONE (18:15)
[2019-05-20] MEDS ORDERED: ZOLEDRONIC ACID 4 MG/100 ML RTU IV ONE (18:16)
[2019-05-20 18:25] LABS: ARTERIAL BLOOD BASE EXCESS 17.7 mmol/L; ARTERIAL BLOOD H2CO3 1.95 mmol/L (1.05-1.35); ARTERIAL BLOOD HCO3 44.2 mmol/L (20-24); ARTERIAL BLOOD O2 SATURATION 97.8 % (94-98); ARTERIAL BLOOD PCO2 64.9 mmHg (35-45); ARTERIAL BLOOD PH 7.45 (7.35-7.45); ARTERIAL BLOOD PO2 103.5 mmHg (80-100); ARTERIAL BLOOD TOTAL CO2 46.2 mmol/L (21-25)
[2019-05-20 18:27] LABS: ARTERIAL BLOOD FIO2 2L
[2019-05-20] MEDS ORDERED: NORMAL SALINE 1000 ML 1,000 ML IV PRN (20:25)
--- NOTE | 2019-05-20 20:47 | RADIOLOGY REPORT (SQ) ---
EXAM DESCRIPTION: CT CHEST WITHOUT IV CONTRAST COMPLETED DATE/TME: 05/20/2019 17:15 CLINICAL HISTORY: 73 years, Female, cough/ams This exam was performed according to our departmental dose-optimization program which includes automated exposure control, adjustment of the mA and/or kVp according to patient size and/or use of iterative reconstruction technique where applicable. Compared to CT chest dated 04/03/2019. FINDINGS: Aorta is mildly calcified. Moderate coronary artery calcification. No significant mediastinal, hilar or axillary lymphadenopathy. No pleural or pericardial effusions. Visualized upper abdominal organs demonstrates patient to be status post cholecystectomy. Mild pneumobilia. Evaluation of the lung parenchyma demonstrates trachea and major airways to be patent. No suspicious lung nodules or masses. Right hilar scarring. IMPRESSION: Right hilar scarring. Findings are similar to the prior study. No new lung consolidations or nodules.
--- NOTE | 2019-05-20 20:48 | RADIOLOGY REPORT (SQ) ---
EXAM DESCRIPTION: CT HEAD WITHOUT IV CONTRAST COMPLETED DATE/TME: 05/20/2019 17:16 CLINICAL HISTORY: 73 years, Female, ams This exam was performed according to our departmental dose-optimization program which includes automated exposure control, adjustment of the mA and/or kVp according to patient size and/or use of iterative reconstruction technique where applicable. FINDINGS: No acute intracranial hemorrhage, mass effect or midline shift. No extra-axial fluid collections. Ventricles and subarachnoid spaces are moderately dilated consistent with cerebral atrophy. Moderate patchy hypodense areas in periventricular white matter both cerebral hemispheres consistent with chronic small vessel ischemic changes. Visualized paranasal sinuses demonstrate fluid in left sphenoid sinus. The mastoid air cells are clear. The skull is intact. IMPRESSION: No acute intracranial hemorrhage. Extensive chronic small vessel ischemic changes.
[2019-05-20] MEDS ORDERED: LEVALBUTEROL HCL NEB 0.63 MG/3 ML AMPUL NEB PRN (21:23)
[2019-05-20] MEDS ORDERED: ONDANSETRON HCL INJ/PF 4 MG/2 ML SDV IV PRN (21:23)
[2019-05-20] MEDS ORDERED: MAGNESIUM HYDROXIDE SUSP 30 ML UDCUP PO PRN (21:23)
[2019-05-20] MEDS ORDERED: MAG HYDROX/AL HYDROX/SIMETH SUSP 30 ML UDCUP PO PRN (21:23)
[2019-05-20] MEDS ORDERED: HYDRALAZINE HCL INJ/PF 20 MG/1 ML SDV IV PRN (21:29)
[2019-05-20] MEDS ORDERED: GLUCAGON,HUMAN RECOMB 1 MG INJ IM PRN (21:30)
[2019-05-20] MEDS ORDERED: DEXTROSE 40% GEL 15 GM TUBE PO PRN ×2 (21:30)
[2019-05-20] MEDS ORDERED: DEXTROSE 50%-WATER 25 GM/50 ML DISP.SYRIN IV PRN ×2 (21:30)
[2019-05-20] MEDS: RINGERS SOLUTION,LACTATED 1,000 ML IV PRN (22:29)
[2019-05-20] MEDS: HEPARIN SOD (PORCINE) 5,000 UNIT/ML 1 ML VIAL SUBCUT SCH (22:29)
[2019-05-20] MEDS: FAMOTIDINE 20 MG TABLET PO SCH (22:30)
[2019-05-20 22:50] LABS: FREE T3 2.08 pg/mL (2.77-5.27); FREE T4 (FREE THYROXINE) 1.07 ng/dL (0.78-2.19)
[2019-05-20 23:03] LABS: THYROID STIMULATING HORMONE 0.47 uIU/mL (0.47-4.68)
[2019-05-21] MEDS: IPRATROPIUM BROMIDE 0.02% NEB 0.5 MG/2.5 ML AMPUL NEB SCH ×4 (00:11→23:55)
[2019-05-21] MEDS: LEVALBUTEROL HCL NEB 1.25 MG/3 ML AMPUL NEB SCH ×4 (00:11→23:55)
--- NOTE | 2019-05-21 03:19 | PDOC H&P ---
History of Present Illness Admission Date/PCP: 05/20/19 19:59 ARASELI AGUILAR MD Patient complains of: Altered mental status History of Present Illness: TRENTON MCCOY is a 73 year old female who presented to the emergency room via EMS with acute altered mental status. Patient was sent to the emergency room by her family members due to her acute confusion and lethargy. She is noted to be significantly confused and is unable to provide reliable historical information at this time. Family members reported to the paramedics that she was very confused and lethargic this morning and her symptoms have persisted thus resulting in their call to EMS to bring the patient to the hospital. In the emergency room the patient was noted to have a calcium of 13.2 with a creatinine of 1.66. She was found to be confused and mildly lethargic per ER physician report. Patient was subsequently admitted to the hospital for further evaluation and treatment. Past Medical History Cardiac Medical History: Reports: Atrial Fibrillation, Congestive Heart Failure, Coronary Artery Disease, Myocardial Infarction, Hypertension Denies: DVT, Hyperlipidema, Pulmonary Embolism Pulmonary Medical History: Reports: Asthma, Bronchitis, Chronic Obstructive Pulmonary Disease (COPD), Pneumonia, Respiratory Failure - Chronic respiratory failure Denies: Sleep Apnea, Tuberculosis EENT Medical History: Reports: Cataracts Denies: Ears - Hearing aids Neurological Medical History: Reports: Other - History of metastatic cancer to the brain S/P radiation and chemo therapy Denies: Hemorrhagic CVA, Ischemic CVA, Seizures Endocrine Medical History: Reports: Diabetes Mellitus Type 2, Hypothyroidism, Obesity Denies: Diabetes Mellitus Type 1, Hyperthyroidism Renal/ Medical History: Denies: Chronic Kidney Disease, Nephrolithiasis Malignancy Medical History: Reports: Brain Cancer - Lung cancer with brain metastases, 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 GI Medical History: Reports: Gastroesophageal Reflux Disease Denies: Cirrhosis, Hepatitis Musculoskeltal Medical History: Reports: Arthritis, Gout Skin Medical History: Denies: Eczema, Psoriasis Psychiatric Medical History: Reports: Dementia, Depression, Tobacco Dependency Denies: Alcohol Dependency, Substance Abuse Traumatic Medical History: Reports: None Hematology: Reports: Anemia, Bleeding Tendencies Infectious Medical History: Reports: Clostridium Difficile Past Surgical History Past Surgical History: Reports: Cholecystectomy, Orthopedic Surgery - Foot surgery, Other - Bilateral cataract surgery Social History Information Source: [facility] Records Lives with: Family Smoking Status: Former Smoker Electronic Cigarette use?: No Frequency of Alcohol Use: None Hx Recreational Drug Use: No Drugs: None Hx Prescription Drug Abuse: No - Advance Directive Resuscitation Status: Full Code Surrogate healthcare decision maker:: Trenton Ousmane Family History Family History: COPD, Malignancy - Lung cancer Parental Family History Reviewed: Yes Children Family History Reviewed: No Sibling(s) Family History Reviewed.: Yes Medication/Allergy Allergies/Adverse Reactions: azithromycin Allergy (Verified 12/30/18 17:18) cephalexin Allergy (Verified 12/30/18 17:18) Penicillins Allergy (Verified 12/30/18 17:18) amoxicillin [Amoxicillin] Adverse Reaction (Verified 12/30/18 17:18) visual hallucinations erythromycin base [Erythromycin Base] Adverse Reaction (Verified 12/30/18 17:18) visual hallucinations Potassium Clavulanate * [From Augmentin] Adverse Reaction (Verified 12/30/18 17:18) visual hallucinations Review of Systems ROS unobtainable: Due to mental status Physical Exam Vital Signs: Temp Pulse Resp BP Pulse Ox 18 130/79 H 97 05/20/19 18:01 05/20/19 18:01 05/20/19 18:01 Intake & Output 05/18/19 05/19/19 05/20/19 23:59 23:59 23:59 Weight 78.698 kg General appearance: PRESENT: no acute distress, cooperative, other - Mildly lethargic Head exam: PRESENT: atraumatic, normocephalic Eye exam: PRESENT: conjunctiva pink. ABSENT: conjunctival injection, scleral icterus Ear exam: PRESENT: normal external ear exam. ABSENT: bleeding, drainage Mouth exam: PRESENT: dry mucosa, neck supple Neck exam: ABSENT: thyromegaly, tracheal deviation Respiratory exam: PRESENT: decreased breath sounds - Mildly decreased breath sounds throughout all curtis, prolonged expiratory phas - Moderately prolonged expiratory phase throughout all curtis, symmetrical, unlabored, wheezes - Mild to moderate expiratory wheezes present throughout all curtis Cardiovascular exam: PRESENT: RRR. ABSENT: clicks, gallop, rubs Pulses: PRESENT: normal radial pulses, normal dorsalis pedis pul Vascular exam: PRESENT: normal capillary refill. ABSENT: pallor GI/Abdominal exam: PRESENT: normal bowel sounds, soft. ABSENT: tenderness Rectal exam: PRESENT: deferred Extremities exam: ABSENT: joint swelling, pedal edema Musculoskeletal exam: ABSENT: deformity, dislocation Neurological exam: PRESENT: altered - Mildly lethargic, CN II-XII grossly intac t, other - Confused and mildly irritable Psychiatric exam: PRESENT: agitated - Mildly agitated affect, other - Mildly irritable mood, confused Skin exam: PRESENT: dry, intact, warm. ABSENT: jaundice, rash, urticaria Results Laboratory Results: 05/20/19 16:34 05/20/19 16:34 05/20/19 05/20/19 05/20/19 16:34 16:34 16:34 WBC 9.6 RBC 3.03 L Hgb 9.8 L Hct 29.3 L MCV 97 MCH 32.2 MCHC 33.4 RDW 16.7 H Plt Count 225 Seg Neutrophils % Not Reportable Carbonic Acid HCO3/H2CO3 Ratio ABG pH ABG pCO2 ABG pO2 ABG HCO3 ABG O2 Saturation ABG Base Excess FiO2 Sodium 138.3 Potassium 3.8 Chloride 91 L Carbon Dioxide 42 H* Anion Gap 5 BUN 30 H Creatinine 1.66 H Est GFR ( Amer) 36 L Glucose 101 Calcium 13.2 H* Total Bilirubin 0.3 AST 23 Alkaline Phosphatase 56 Total Protein 6.0 L Albumin 3.3 L Urine Color STRAW Urine Appearance SLIGHTLY-CLOUDY Urine pH 7.0 Ur Specific [place] 1.004 Urine Protein NEGATIVE Urine Glucose (UA) NEGATIVE Urine Ketones NEGATIVE Urine Blood NEGATIVE Urine Nitrite NEGATIVE Ur Leukocyte Esterase NEGATIVE Urine WBC (Auto) 5 Urine RBC (Auto) 2 05/20/19 17:58 WBC RBC Hgb Hct MCV MCH MCHC RDW Plt Count Seg Neutrophils % Carbonic Acid 1.95 H HCO3/H2CO3 Ratio 22:1 ABG pH 7.45 ABG pCO2 64.9 H ABG pO2 103.5 H ABG HCO3 44.2 H ABG O2 Saturation 97.8 ABG Base Excess 17.7 FiO2 2L Sodium Potassium Chloride Carbon Dioxide Anion Gap BUN Creatinine Est GFR ( Amer) Glucose Calcium Total Bilirubin AST Alkaline Phosphatase Total Protein Albumin Urine Color Urine Appearance Urine pH Ur Specific [place] Urine Protein Urine Glucose (UA) Urine Ketones Urine Blood Urine Nitrite Ur Leukocyte Esterase Urine WBC (Auto) Urine RBC (Auto) 05/20/19 05/20/19 16:34 16:34 Creatine Kinase < 20 L CK-MB (CK-2) 0.59 Troponin I 0.024 Impressions: Chest X-Ray 05/20/19 15:50 IMPRESSION: STABLE CHRONIC CHANGES. NO ACUTE RADIOGRAPHIC FINDING IN THE CHEST. Assessment and Plan - Diagnosis (1) Acute metabolic encephalopathy Is this a current diagnosis for this admission?: Yes Plan: Patient is admitted to [facility] for evaluation and treatment. A consultation will be obtained with hematology/oncology due to her significant hypercalcemia and her history of both breast and lung cancer. She will be given supportive and symptomatic cares. She will receive IV fluids and her hypercalcemia will be treated with Miacalcin and Zometa. Patient will have every 4 hours neuro checks and ongoing clinical evaluation. Daily metabolic profiles, magnesium levels and CBCs will be obtained. (2) Hypercalcemia Is this a current diagnosis for this admission?: Yes Plan: Patient is admitted to [facility] for evaluation and treatment. A consultation will be obtained with hematology/oncology due to her significant hypercalcemia and her history of both breast and lung cancer. She will be given supportive and symptomatic cares. She will receive IV fluids and her hypercalcemia will be treated with Miacalcin and Zometa. Patient will have every 4 hours neuro checks and ongoing clinical evaluation. Daily metabolic profiles, magnesium levels and CBCs will be obtained. (3) Acute kidney injury Is this a current diagnosis for this admission?: Yes Plan: Patient will be treated with IV fluids and renal functions will be monitored with serial metabolic profiles. (4) Hypothyroidism Qualifiers: Hypothyroidism type: acquired Qualified Code(s): E03.9 - Hypothyroidism, unspecified Is this a current diagnosis for this admission?: Yes Plan: Patient will be continued on her usual thyroid replacement hormone. A thyroid profile will be obtained if no recent studies are available. (5) Diabetes mellitus type 2 in nonobese Is this a current diagnosis for this admission?: Yes Plan: Patient will be continued on her current diabetic therapy. Patient will be continued on a diabetic diet. Before meals and at bedtime Accu-Cheks will be performed with sliding scale insulin for hyperglycemia and a hypoglycemic protocol in place. Hemoglobin A1c will be obtained if one has not been obtained recently (6) COPD (chronic obstructive pulmonary disease) Qualifiers: COPD type: unspecified COPD Qualified Code(s): J44.9 - Chronic obstructive pulmonary disease, unspecified Is this a current diagnosis for this admission?: Yes Plan: Patient will be treated with a standard pulmonary toilet for COPD and letter of her usual therapy. She may be reverted back to her usual therapy at discharge. (7) Essential hypertension Is this a current diagnosis for this admission?: Yes Plan: Patient to be continued on her usual antihypertensive regimen. Patient will continue on a cardiac diet. Blood pressure will be monitored closely with vital signs 4 hours (8) Coronary artery disease Qualifiers: Coronary Disease-Associated Artery/Lesion type: [place] artery [place] vs. transplanted heart: [place] heart Associated angina: without angina Qualified Code(s): I25.10 - Atherosclerotic heart disease of [place] coronary artery without angina pectoris Is this a current diagnosis for this admission?: Yes Plan: Patient is to continue current medications for cardiac disease. She will be monitored closely on the classroom monitor. - Plan Summary Summary: Patient is admitted to [facility] for evaluation and treatment. A consultation will be obtained with hematology/oncology due to her significant hypercalcemia and her history of both breast and lung cancer. She will be given supportive and symptomatic cares. She will receive IV fluids and her hypercalcemia will be treated with Miacalcin and Zometa. Patient will have every 4 hours neuro checks and ongoing clinical evaluation. Daily metabolic profiles, magnesium levels and CBCs will be obtained. She will be continued on her usual medications for control of her hypertension, coronary artery disease, hypothyroidism and diabetes. Her vital signs will be assessed every 4 hours patient will be in a telemetry monitored bed. Before meals and at bedtime Accu-Cheks will be obtained with sliding scale insulin for treatment of hyperglycemia and a hypoglycemic protocol in place. A thyroid profile will also be obtained. - Time Time Spent with patient: 15-24 minutes Medications reviewed and adjusted accordingly: Yes Anticipated discharge: Home - Inpatient Certification Based on my medical assessment, after consideration of the patient's comor bidities, presenting symptoms, or acuity I expect that the services needed warrant INPATIENT care.: Yes I certify that my determination is in accordance with my understanding of Medicare's requirements for reasonable and necessary INPATIENT services [42 CFR 412.3e].: Yes Medical Necessity: Significant Comorbidiites Make Outpatient Treatment Too Risky, Need Close Monitoring Due to Risk of Patient Decompensation, Need For IV Fluids, Need For Continuous Telemetry Monitoring, Need for Neurological Checks, Risk of Complication if Not Cared For in Hospital, Risk of Diagnosis Which Will Require Inpatient Eval/Care/Monitoring
[2019-05-21] MEDS: HEPARIN SOD (PORCINE) 5,000 UNIT/ML 1 ML VIAL SUBCUT SCH ×3 (05:06→21:13)
[2019-05-21] MEDS: RINGERS SOLUTION,LACTATED 1,000 ML IV PRN (05:58)
[2019-05-21 06:46] LABS: HEMATOCRIT 28.6 % (36.0-47.0); HEMOGLOBIN 9.7 g/dL (12.0-15.5); MEAN CORPUSCULAR HEMOGLOBIN 32.4 pg (27.0-33.4); MEAN CORPUSCULAR HGB CONC 33.9 g/dL (32.0-36.0); MEAN CORPUSCULAR VOLUME 96 fl (80-97); PLATELET COUNT 216 10^3/uL (150-450); RED BLOOD COUNT 2.99 10^6/uL (3.72-5.28); RED CELL DISTRIBUTION WIDTH 16.9 % (11.5-14.0); WHITE BLOOD COUNT 8.2 10^3/uL (4.0-10.5)
[2019-05-21 07:03] LABS: BLOOD UREA NITROGEN 30 mg/dL (7-20); CHLORIDE 97 mmol/L (98-107); GLUCOSE 87 mg/dL (75-110); PHOSPHORUS 4.2 mg/dL (2.5-4.5); POTASSIUM 3.6 mmol/L (3.6-5.0)
[2019-05-21 07:09] LABS: ANION GAP 5 (5-19); CARBON DIOXIDE 39 mmol/L (22-30)
[2019-05-21 07:16] LABS: CALCIUM 12.1 mg/dL (8.4-10.2)
[2019-05-21] MEDS: BUDESONIDE NEB 0.5 MG/2 ML AMPUL NEB SCH ×2 (08:18→20:32)
[2019-05-21] MEDS ORDERED: CALCITONIN,SALMON,SYNTHETIC 400 UNIT/2 ML VIAL IM SCH (10:00)
[2019-05-21] MEDS: DOCUSATE SODIUM 100 MG CAPSULE PO SCH (10:35)
[2019-05-21] MEDS: FAMOTIDINE 20 MG TABLET PO SCH (10:35)
--- NOTE | 2019-05-21 14:11 | PDOC CONSULTATION ---
Consultation Consult Date: 05/21/19 Provider Consulted: CHANTELL HDEZ Consult reason:: Hematology Oncology consultation was requested for patient with hypercalcemia and a history of lung cancer. History of Present Illness Admission Date/PCP: 05/20/19 19:59 ARASELI AGUILAR MD History of Present Illness: TRENTON MCCOY is a 73 year old female who, according to medical records, presented to the Emergency department after family called EMS for altered mental status. She had recently been treated for pneumonia. Currently, family is not available and patient is a very poor historian. In the ED, she was found to have acute renal insufficiency and hypercalcemia. This morning, her labs have improved. She is sitting up eating, but is still not able to provide me with any history. I asked about her history of cancer, and she told me to ask her doctor, when she arrives. Past Medical History Cardiac Medical History: Reports: Atrial Fibrillation, Congestive Heart Failure, Coronary Artery Disease, Myocardial Infarction, Hypertension Denies: DVT, Hyperlipidema, Pulmonary Embolism Pulmonary Medical History: Reports: Asthma, Bronchitis, Chronic Obstructive Pulmonary Disease (COPD), Pneumonia, Respiratory Failure - Chronic respiratory failure Denies: Sleep Apnea, Tuberculosis EENT Medical History: Reports: Cataracts Denies: Ears - Hearing aids Neurological Medical History: Reports: Other - History of metastatic cancer to the brain S/P radiation and chemo therapy Denies: Hemorrhagic CVA, Ischemic CVA, Seizures Endocrine Medical History: Reports: Diabetes Mellitus Type 2, Hypothyroidism, Obesity Denies: Diabetes Mellitus Type 1, Hyperthyroidism Renal/ Medical History: Denies: Chronic Kidney Disease, End Stage Renal Disease, Nephrolithiasis Malignancy Medical History: Reports: Brain Cancer - Lung cancer with brain metastases, 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 GI Medical History: Reports: Gastroesophageal Reflux Disease Denies: Cirrhosis, Hepatitis Musculoskeltal Medical History: Reports: Arthritis, Gout Skin Medical History: Denies: Eczema, Psoriasis Psychiatric Medical History: Reports: Dementia, Depression, Tobacco Dependency Denies: Alcohol Dependency, Bipolar Disorder, Substance Abuse Traumatic Medical History: Reports: None Hematology: Reports: Anemia, Bleeding Tendencies Infectious Medical History: Reports: Clostridium Difficile Past Surgical History Past Surgical History: Reports: Cholecystectomy, Orthopedic Surgery - Foot surgery, Other - Bilateral cataract surgery Social History Lives with: Family Smoking Status: Former Smoker Electronic Cigarette use?: No Frequency of Alcohol Use: None Hx Recreational Drug Use: No Drugs: None Hx Prescription Drug Abuse: No - Advance Directive Resuscitation Status: Full Code Family History Family History: COPD, Malignancy - Lung cancer Parental Family History Reviewed: No Children Family History Reviewed: No Sibling(s) Family History Reviewed.: No Medication/Allergy Home Medications: Albuterol Sulfate [Ventolin 0.083% Neb 2.5 mg/3 ml Ampul] 1 vial NEB RTTID 05/21/19 Budesonide/Formoterol Fumarate [Symbicort Hfa 160-4.5 Mcg Inhaler 6 gm] 2 puff IH Q12 05/21/19 Ipratropium/Albuterol Sulfate [Duoneb 3 ml Ampul] 3 ml NEB RTQID 05/21/19 Levothyroxine Sodium 50 mcg PO Q6AM 05/21/19 Lorazepam [Ativan 1 mg Tablet] 0.5 mg PO BID 05/21/19 Nystatin [Mycostatin Topical Powder 15 gm] 1 applic TP QID 05/21/19 Potassium Chloride [Klor-Con 10 Meq Capsule ER] 10 meq PO DAILY 05/21/19 Prednisone [Deltasone 10 mg Tablet] 10 mg PO DAILY 05/21/19 Allergies/Adverse Reactions: azithromycin Allergy (Verified 12/30/18 17:18) cephalexin Allergy (Verified 12/30/18 17:18) Penicillins Allergy (Verified 12/30/18 17:18) amoxicillin [Amoxicillin] Adverse Reaction (Verified 12/30/18 17:18) visual hallucinations erythromycin base [Erythromycin Base] Adverse Reaction (Verified 12/30/18 17:18) visual hallucinations Potassium Clavulanate * [From Augmentin] Adverse Reaction (Verified 12/30/18 17:18) visual hallucinations Review of Systems ROS unobtainable: Due to mental status Physical Exam Vital Signs: Temp Pulse Resp BP Pulse Ox 98.6 F 102 H 18 125/82 94 05/21/19 11:56 05/21/19 11:56 05/21/19 11:56 05/21/19 11:56 05/21/19 11:56 Intake & Output 05/20/19 05/21/19 05/22/19 06:59 06:59 06:59 Intake Total 1120 501 Output Total 875 Balance 245 501 Weight 75.9 kg General appearance: PRESENT: no acute distress, well-developed, well-nourished Exam: 73 year old female. Head exam: PRESENT: normocephalic Eye exam: PRESENT: EOMI Mouth exam: PRESENT: tongue midline Neck exam: ABSENT: lymphadenopathy, tenderness Respiratory exam: PRESENT: crackles - right base Cardiovascular exam: PRESENT: RRR GI/Abdominal exam: PRESENT: soft. ABSENT: tenderness Extremities exam: ABSENT: pedal edema Neurological exam: PRESENT: alert, awake. ABSENT: oriented to person, oriented to place, oriented to time, oriented to situation Psychiatric exam: PRESENT: appropriate affect Focused psych exam: ABSENT: restlessness Skin exam: PRESENT: normal color Results Laboratory Results: 05/21/19 06:30 05/21/19 06:30 05/20/19 05/20/19 05/20/19 16:34 16:34 16:34 WBC 9.6 RBC 3.03 L Hgb 9.8 L Hct 29.3 L MCV 97 MCH 32.2 MCHC 33.4 RDW 16.7 H Plt Count 225 Seg Neutrophils % Not Reportable Carbonic Acid HCO3/H2CO3 Ratio ABG pH ABG pCO2 ABG pO2 ABG HCO3 ABG O2 Saturation ABG Base Excess FiO2 Sodium 138.3 Potassium 3.8 Chloride 91 L Carbon Dioxide 42 H* Anion Gap 5 BUN 30 H Creatinine 1.66 H Est GFR ( Amer) 36 L Glucose 101 Calcium 13.2 H* Phosphorus Magnesium Total Bilirubin 0.3 AST 23 Alkaline Phosphatase 56 Total Protein 6.0 L Albumin 3.3 L TSH Free T4 Free T3 pg/mL PTH Intact Urine Color STRAW Urine Appearance SLIGHTLY-CLOUDY Urine pH 7.0 Ur Specific [place] 1.004 Urine Protein NEGATIVE Urine Glucose (UA) NEGATIVE Urine Ketones NEGATIVE Urine Blood NEGATIVE Urine Nitrite NEGATIVE Ur Leukocyte Esterase NEGATIVE Urine WBC (Auto) 5 Urine RBC (Auto) 2 05/20/19 05/20/19 05/21/19 16:34 17:58 06:30 WBC 8.2 RBC 2.99 L Hgb 9.7 L Hct 28.6 L MCV 96 MCH 32.4 MCHC 33.9 RDW 16.9 H Plt Count 216 Seg Neutrophils % Carbonic Acid 1.95 H HCO3/H2CO3 Ratio 22:1 ABG pH 7.45 ABG pCO2 64.9 H ABG pO2 103.5 H ABG HCO3 44.2 H ABG O2 Saturation 97.8 ABG Base Excess 17.7 FiO2 2L Sodium Potassium Chloride Carbon Dioxide Anion Gap BUN Creatinine Est GFR ( Amer) Glucose Calcium Phosphorus Magnesium Total Bilirubin AST Alkaline Phosphatase Total Protein Albumin TSH 0.47 Free T4 1.07 Free T3 pg/mL 2.08 L PTH Intact Urine Color Urine Appearance Urine pH Ur Specific [place] Urine Protein Urine Glucose (UA) Urine Ketones Urine Blood Urine Nitrite Ur Leukocyte Esterase Urine WBC (Auto) Urine RBC (Auto) 05/21/19 05/21/19 06:30 10:53 WBC RBC Hgb Hct MCV MCH MCHC RDW Plt Count Seg Neutrophils % Carbonic Acid HCO3/H2CO3 Ratio ABG pH ABG pCO2 ABG pO2 ABG HCO3 ABG O2 Saturation ABG Base Excess FiO2 Sodium 140.8 Potassium 3.6 Chloride 97 L Carbon Dioxide 39 H Anion Gap 5 BUN 30 H Creatinine 1.49 H Est GFR ( Amer) 41 L Glucose 87 Calcium 12.1 H* Phosphorus 4.2 Magnesium 2.0 Total Bilirubin AST Alkaline Phosphatase Total Protein Albumin TSH Free T4 Free T3 pg/mL PTH Intact 4.7 L Urine Color Urine Appearance Urine pH Ur Specific [place] Urine Protein Urine Glucose (UA) Urine Ketones Urine Blood Urine Nitrite Ur Leukocyte Esterase Urine WBC (Auto) Urine RBC (Auto) 05/20/19 20:20 Sputum Gram Stain - Final 05/20/19 20:20 Sputum Sputum Culture - Final 05/20/19 05/20/19 16:34 16:34 Creatine Kinase < 20 L CK-MB (CK-2) 0.59 Troponin I 0.024 Impressions: Chest X-Ray 05/20/19 15:50 IMPRESSION: STABLE CHRONIC CHANGES. NO ACUTE RADIOGRAPHIC FINDING IN THE CHEST. Chest CT 05/20/19 17:15 IMPRESSION: Right hilar scarring. Findings are similar to the prior study. No new lung consolidations or nodules. Head CT 05/20/19 17:16 IMPRESSION: No acute intracranial hemorrhage. Extensive chronic small vessel ischemic changes. Assessment & Plan - Diagnosis (1) Hypercalcemia Is this a current diagnosis for this admission?: Yes Plan: Improving with appropriate management. (2) ARF (acute renal failure) Is this a current diagnosis for this admission?: Yes Plan: Improved with gentle hydration. (3) Acute delirium Is this a current diagnosis for this admission?: Yes Plan: Unsure what her baseline is. (4) Anemia Qualifiers: Anemia type: unspecified type Qualified Code(s): D64.9 - Anemia, unspecified Is this a current diagnosis for this admission?: Yes Plan: This has been stable over the past 2 years. No indication for blood transfusion at this time. - Plan Summary Plan Summary: Patient was discussed with Dr. Waldron. I agree with current management. No evidence to suggest recurrence of cancer at this time. If further concern, may consider MRI brain with contrast. I am happy to follow her as outpatient, if needed. Please call with any questions or concerns.
[2019-05-21] MEDS ORDERED: RINGERS SOLUTION,LACTATED 1,000 ML IV PRN (15:36)
--- NOTE | 2019-05-21 15:36 | PDOC PROGRESS REPORT ---
Subjective Progress Note for:: 05/21/19 Subjective:: This is a 73-year-old past medical history of COPD and remote history of lung cancer who was brought in due to lethargy and confusion. Patient was noted to have significant hypercalcemia and was also found to be in acute renal failure. She was started on IV fluids. No acute event overnight. Upon encounter, she appears comfortable and appears her mentation has improved. She is able to tell me her name, she knows that she is in the hospital and she is able to tell me that it is 2018 although she thinks it is October. She denies chest pain or shortness of breath. Reason For Visit: HYPERCALCEMIA,ACUTE METABOLIC ENCEPHALOPATHY Physical Exam Vital Signs: Temp Pulse Resp BP Pulse Ox 98.6 F 102 H 18 125/82 94 05/21/19 11:56 05/21/19 11:56 05/21/19 11:56 05/21/19 11:56 05/21/19 11:56 Intake & Output 05/20/19 05/21/19 05/22/19 06:59 06:59 06:59 Intake Total 1120 501 Output Total 875 Balance 245 501 Weight 167 lb 5.294 oz General appearance: PRESENT: no acute distress, well-developed, well-nourished Head exam: PRESENT: atraumatic, normocephalic Eye exam: PRESENT: conjunctiva pink, EOMI, PERRLA. ABSENT: scleral icterus Ear exam: PRESENT: normal external ear exam Mouth exam: PRESENT: moist, tongue midline Neck exam: ABSENT: carotid bruit, JVD, lymphadenopathy, thyromegaly Respiratory exam: PRESENT: rhonchi. ABSENT: rales, wheezes Cardiovascular exam: PRESENT: RRR. ABSENT: diastolic murmur, rubs, systolic mur mur Pulses: PRESENT: normal dorsalis pedis pul GI/Abdominal exam: PRESENT: normal bowel sounds, soft. ABSENT: distended, guarding, mass, organolmegaly, rebound, tenderness Rectal exam: PRESENT: deferred Extremities exam: PRESENT: full ROM. ABSENT: calf tenderness, clubbing, pedal edema Neurological exam: PRESENT: alert, awake, oriented to person, oriented to place, oriented to time, CN II-XII grossly intact. ABSENT: motor sensory deficit Results Laboratory Results: 05/21/19 06:30 05/21/19 06:30 05/20/19 05/20/19 05/20/19 16:34 16:34 16:34 WBC 9.6 RBC 3.03 L Hgb 9.8 L Hct 29.3 L MCV 97 MCH 32.2 MCHC 33.4 RDW 16.7 H Plt Count 225 Seg Neutrophils % Not Reportable Carbonic Acid HCO3/H2CO3 Ratio ABG pH ABG pCO2 ABG pO2 ABG HCO3 ABG O2 Saturation ABG Base Excess FiO2 Sodium 138.3 Potassium 3.8 Chloride 91 L Carbon Dioxide 42 H* Anion Gap 5 BUN 30 H Creatinine 1.66 H Est GFR ( Amer) 36 L Glucose 101 Calcium 13.2 H* Phosphorus Magnesium Total Bilirubin 0.3 AST 23 Alkaline Phosphatase 56 Total Protein 6.0 L Albumin 3.3 L TSH Free T4 Free T3 pg/mL PTH Intact Urine Color STRAW Urine Appearance SLIGHTLY-CLOUDY Urine pH 7.0 Ur Specific [place] 1.004 Urine Protein NEGATIVE Urine Glucose (UA) NEGATIVE Urine Ketones NEGATIVE Urine Blood NEGATIVE Urine Nitrite NEGATIVE Ur Leukocyte Esterase NEGATIVE Urine WBC (Auto) 5 Urine RBC (Auto) 2 05/20/19 05/20/19 05/21/19 16:34 17:58 06:30 WBC 8.2 RBC 2.99 L Hgb 9.7 L Hct 28.6 L MCV 96 MCH 32.4 MCHC 33.9 RDW 16.9 H Plt Count 216 Seg Neutrophils % Carbonic Acid 1.95 H HCO3/H2CO3 Ratio 22:1 ABG pH 7.45 ABG pCO2 64.9 H ABG pO2 103.5 H ABG HCO3 44.2 H ABG O2 Saturation 97.8 ABG Base Excess 17.7 FiO2 2L Sodium Potassium Chloride Carbon Dioxide Anion Gap BUN Creatinine Est GFR ( Amer) Glucose Calcium Phosphorus Magnesium Total Bilirubin AST Alkaline Phosphatase Total Protein Albumin TSH 0.47 Free T4 1.07 Free T3 pg/mL 2.08 L PTH Intact Urine Color Urine Appearance Urine pH Ur Specific [place] Urine Protein Urine Glucose (UA) Urine Ketones Urine Blood Urine Nitrite Ur Leukocyte Esterase Urine WBC (Auto) Urine RBC (Auto) 05/21/19 05/21/19 06:30 10:53 WBC RBC Hgb Hct MCV MCH MCHC RDW Plt Count Seg Neutrophils % Carbonic Acid HCO3/H2CO3 Ratio ABG pH ABG pCO2 ABG pO2 ABG HCO3 ABG O2 Saturation ABG Base Excess FiO2 Sodium 140.8 Potassium 3.6 Chloride 97 L Carbon Dioxide 39 H Anion Gap 5 BUN 30 H Creatinine 1.49 H Est GFR ( Amer) 41 L Glucose 87 Calcium 12.1 H* Phosphorus 4.2 Magnesium 2.0 Total Bilirubin AST Alkaline Phosphatase Total Protein Albumin TSH Free T4 Free T3 pg/mL PTH Intact 4.7 L Urine Color Urine Appearance Urine pH Ur Specific [place] Urine Protein Urine Glucose (UA) Urine Ketones Urine Blood Urine Nitrite Ur Leukocyte Esterase Urine WBC (Auto) Urine RBC (Auto) 05/20/19 20:20 Sputum Gram Stain - Final 05/20/19 20:20 Sputum Sputum Culture - Final 05/20/19 05/20/19 16:34 16:34 Creatine Kinase < 20 L CK-MB (CK-2) 0.59 Troponin I 0.024 Impressions: Chest X-Ray 05/20/19 15:50 IMPRESSION: STABLE CHRONIC CHANGES. NO ACUTE RADIOGRAPHIC FINDING IN THE CHEST. Chest CT 05/20/19 17:15 IMPRESSION: Right hilar scarring. Findings are similar to the prior study. No new lung consolidations or nodules. Head CT 05/20/19 17:16 IMPRESSION: No acute intracranial hemorrhage. Extensive chronic small vessel ischemic changes. Assessment and Plan - Diagnosis (1) Acute metabolic encephalopathy Is this a current diagnosis for this admission?: Yes Plan: Improving. Likely related to acute renal failure and hypercalcemia. (2) ARF (acute renal failure) Is this a current diagnosis for this admission?: Yes Plan: Creatinine has slightly improved today with IV fluids. Decrease IV fluids from 160 cc/h to 100 cc/h. (3) Hypercalcemia Is this a current diagnosis for this admission?: Yes Plan: Hypercalcemia is likely related more to acute renal failure and possible dehydration. Discontinue calcitonin. Continue IV fluids. Will check a PTH level as well. - Plan Summary Summary: Patient is admitted to [facility] for evaluation and treatment. A consultation will be obtained with hematology/oncology due to her significant hypercalcemia and her history of both breast and lung cancer. She will be given supportive and symptomatic cares. She will receive IV fluids and her hypercalcemia will be treated with Miacalcin and Zometa. Patient will have every 4 hours neuro checks and ongoing clinical evaluation. Daily metabolic profiles, magnesium levels and CBCs will be obtained. She will be continued on her usual medications for control of her hypertension, coronary artery disease, hypothyroidism and diabetes. Her vital signs will be assessed every 4 hours patient will be in a telemetry monitored bed. Before meals and at bedtime Accu-Cheks will be obtained with sliding scale insulin for treatment of hyperglycemia and a hypoglycemic protocol in place. A thyroid profile will also be obtained. - Time Time Spent with patient: 25-34 minutes
[2019-05-21] MEDS: FLUTICASONE/VILANTEROL 200-25 MCG/DOSE IH SCH (21:10)
[2019-05-22] MEDS: FAMOTIDINE 20 MG TABLET PO SCH ×3 (00:13→21:20)
[2019-05-22] MEDS: PREDNISONE 10 MG TABLET PO SCH ×2 (00:14→11:23)
[2019-05-22] MEDS: HEPARIN SOD (PORCINE) 5,000 UNIT/ML 1 ML VIAL SUBCUT SCH ×3 (05:44→21:13)
[2019-05-22 07:06] LABS: HEMOGLOBIN 10.1 g/dL (12.0-15.5); MEAN CORPUSCULAR HEMOGLOBIN 32.4 pg (27.0-33.4); MEAN CORPUSCULAR HGB CONC 33.9 g/dL (32.0-36.0); MEAN CORPUSCULAR VOLUME 96 fl (80-97); PLATELET COUNT 226 10^3/uL (150-450); RED BLOOD COUNT 3.13 10^6/uL (3.72-5.28); RED CELL DISTRIBUTION WIDTH 16.8 % (11.5-14.0)
[2019-05-22 07:24] LABS: ANION GAP 6 (5-19); BLOOD UREA NITROGEN 28 mg/dL (7-20); CALCIUM 11.8 mg/dL (8.4-10.2); CARBON DIOXIDE 37 mmol/L (22-30); CHLORIDE 102 mmol/L (98-107); GLUCOSE 71 mg/dL (75-110); PHOSPHORUS 3.1 mg/dL (2.5-4.5); POTASSIUM 3.2 mmol/L (3.6-5.0)
[2019-05-22] MEDS: BUDESONIDE NEB 0.5 MG/2 ML AMPUL NEB SCH ×2 (08:12→20:19)
[2019-05-22] MEDS: IPRATROPIUM BROMIDE 0.02% NEB 0.5 MG/2.5 ML AMPUL NEB SCH ×2 (08:12→16:29)
[2019-05-22] MEDS: LEVALBUTEROL HCL NEB 1.25 MG/3 ML AMPUL NEB SCH ×2 (08:12→16:29)
--- NOTE | 2019-05-22 08:57 | PDOC PROGRESS REPORT ---
Subjective Progress Note for:: 05/22/19 Subjective:: Patient remains quite confused, but unsure what her baseline is. She is shivering and states that she is cold. Her pain is "better" Reason For Visit: HYPERCALCEMIA,ACUTE METABOLIC ENCEPHALOPATHY Physical Exam Vital Signs: Temp Pulse Resp BP Pulse Ox 98.5 F 103 H 17 144/64 H 94 05/22/19 08:02 05/22/19 08:02 05/22/19 08:02 05/22/19 08:02 05/22/19 08:02 Intake & Output 05/21/19 05/22/19 05/23/19 06:59 06:59 06:59 Intake Total 1120 1000 Output Total 875 1025 Balance 245 -25 Weight 75.9 kg 76.1 kg General appearance: PRESENT: no acute distress Head exam: PRESENT: normocephalic Respiratory exam: PRESENT: unlabored Extremities exam: ABSENT: pedal edema Neurological exam: ABSENT: oriented to person, oriented to place, oriented to time, oriented to situation Focused psych exam: PRESENT: restlessness Results Laboratory Results: 05/22/19 05:45 05/22/19 05:45 05/21/19 05/22/19 05/22/19 10:53 05:45 05:45 WBC 9.0 RBC 3.13 L Hgb 10.1 L Hct 30.0 L MCV 96 MCH 32.4 MCHC 33.9 RDW 16.8 H Plt Count 226 Sodium 145.3 H Potassium 3.2 L Chloride 102 Carbon Dioxide 37 H Anion Gap 6 BUN 28 H Creatinine 1.70 H Est GFR ( Amer) 35 L Glucose 71 L Calcium 11.8 H Phosphorus 3.1 Magnesium 1.7 PTH Intact 4.7 L 05/20/19 20:20 Sputum Gram Stain - Final 05/20/19 20:20 Sputum Sputum Culture - Final 05/20/19 05/20/19 16:34 16:34 Creatine Kinase < 20 L CK-MB (CK-2) 0.59 Troponin I 0.024 Impressions: Chest X-Ray 05/20/19 15:50 IMPRESSION: STABLE CHRONIC CHANGES. NO ACUTE RADIOGRAPHIC FINDING IN THE CHEST. Chest CT 05/20/19 17:15 IMPRESSION: Right hilar scarring. Findings are similar to the prior study. No new lung consolidations or nodules. Head CT 05/20/19 17:16 IMPRESSION: No acute intracranial hemorrhage. Extensive chronic small vessel ischemic changes. Assessment & Plan - Diagnosis (1) Hypercalcemia Is this a current diagnosis for this admission?: Yes Plan: This continues to improve with medical therapy. No current evidence of cancer on any scans. However, may consider CT or MRI WITH contrast to rule out mets. CT without contrast showed small vessel ischemia. (2) ARF (acute renal failure) Is this a current diagnosis for this admission?: Yes Plan: Improving with fluid hydration. (3) Acute delirium Is this a current diagnosis for this admission?: Yes (4) Anemia Qualifiers: Anemia type: unspecified type Qualified Code(s): D64.9 - Anemia, unspecified Is this a current diagnosis for this admission?: Yes Plan: Chronic and very stable. No indication for blood transfusion. - Time Time Spent with patient: Less than 15 minutes - Plan Summary Plan Summary: I will be happy to continue to follow. Please call with any questions or concerns.
[2019-05-22] MEDS: DOCUSATE SODIUM 100 MG CAPSULE PO SCH (11:23)
[2019-05-22] MEDS: FLUTICASONE/VILANTEROL 200-25 MCG/DOSE IH SCH (11:24)
[2019-05-22] MEDS ORDERED: POTASSI CL 20 MEQ/50 ML RIDER 20 MEQ/50 ML RTUPB IV ONE (12:11)
[2019-05-22] MEDS ORDERED: POTASSIUM CHLORIDE 10 MEQ CAPSULE.ER PO ONE (12:11)
--- NOTE | 2019-05-22 14:34 | RADIOLOGY REPORT (SQ) ---
EXAM DESCRIPTION: CT ABD/PELVIS NO ORAL OR IV COMPLETED DATE/TIME: 05/22/2019 2:18 pm REASON FOR STUDY: acute renal failure COMPARISON: 12/09/2018 TECHNIQUE: CT scan of the abdomen and pelvis performed without intravenous or oral contrast. Images reviewed with lung, soft tissue, and bone windows. Reconstructed coronal and sagittal MPR images revi ewed. All images stored on PACS. All CT scanners at this facility use dose modulation, iterative reconstruction, and/or weight based d osing when appropriate to reduce radiation dose to as low as reasonably achievable (ALARA). [facility]: Dose Right [facility]: CareDose [facility]: Dose Right [facility]: Teradose 4D [facility]: [employer] RADIATION DOSE: mGy. LIMITATIONS: None. FINDINGS: LOWER CHEST: No significant findings. No nodules or infiltrates. NON-CONTRASTED LIVER, SPLEEN, ADRENALS: There is extensive pneumobilia. This is unchanged. Spleen a nd adrenals are unremarkable. PANCREAS: No masses. No peripancreatic inflammatory changes. GALLBLADDER: Prior cholecystectomy. RIGHT KIDNEY AND URETER: Small cortical cyst. No significant calcifications. No hydronephrosis or hydroureter. LEFT KIDNEY AND URETER: No suspicious masses. Assessment limited by lack of IV contrast. No signifi cant calcifications. No hydronephrosis or hydroureter. AORTA AND RETROPERITONEUM: No aneurysm. No retroperitoneal masses or adenopathy. BOWEL AND PERITONEAL CAVITY: No obvious masses or inflammatory changes. No free fluid. APPENDIX: Normal. PELVIS, BLADDER, AND ABDOMINAL WALL:No abnormal masses. No free fluid. Bladder normal. BONES: No significant findings. OTHER: No other significant finding. IMPRESSION: Grossly stable CT abdomen and pelvis. No acute findings. COMMENT: Quality ID # [id number]: Final reports with documentation of one or more dose reduction techniques (e.g., Automated exposure control, adjustment of the mA and/or kV according to patient size, use of iterative reconstruction technique) TECHNICAL DOCUMENTATION: JOB ID: [id number] [employer]- All Rights Reserved Reading location - IP/workstation name: [email or web address]
--- NOTE | 2019-05-22 14:38 | PDOC PROGRESS REPORT ---
Subjective Progress Note for:: 05/22/19 Subjective:: This is a 73-year-old past medical history of dementia, COPD and remote history of lung cancer who was brought in due to lethargy and confusion. Patient was noted to have significant hypercalcemia and was also found to be in acute renal failure. She was started on IV fluids. 05/21: Upon encounter, she appears comfortable and appears her mentation has improved. She is able to tell me her name, she knows that she is in the hospital and she is able to tell me that it is 2018 although she thinks it is October. She denies chest pain or shortness of breath. 05/22: She had an episode of transient confusion and restlessness last night. Upon encounter this morning, she is more conversant. She is oriented to person and place. She denies chest pain or shortness of breath. Reason For Visit: HYPERCALCEMIA,ACUTE METABOLIC ENCEPHALOPATHY Physical Exam Vital Signs: Temp Pulse Resp BP Pulse Ox 98.5 F 104 H 17 144/64 H 97 05/22/19 08:02 05/22/19 08:12 05/22/19 08:12 05/22/19 08:02 05/22/19 08:12 Intake & Output 05/21/19 05/22/19 05/23/19 06:59 06:59 06:59 Intake Total 1120 1000 Output Total 875 1025 Balance 245 -25 Weight 167 lb 5.294 oz 167 lb 12.348 oz General appearance: PRESENT: no acute distress, well-developed, well-nourished Head exam: PRESENT: atraumatic, normocephalic Eye exam: PRESENT: conjunctiva pink, EOMI, PERRLA. ABSENT: scleral icterus Ear exam: PRESENT: normal external ear exam Mouth exam: PRESENT: moist, tongue midline Neck exam: ABSENT: carotid bruit, JVD, lymphadenopathy, thyromegaly Respiratory exam: PRESENT: clear to auscultation jeff. ABSENT: rales, rhonchi, wheezes Cardiovascular exam: PRESENT: RRR. ABSENT: diastolic murmur, rubs, systolic murmur Pulses: PRESENT: normal dorsalis pedis pul GI/Abdominal exam: PRESENT: normal bowel sounds, soft. ABSENT: distended, guarding, mass, organolmegaly, rebound, tenderness Rectal exam: PRESENT: deferred Extremities exam: PRESENT: full ROM. ABSENT: calf tenderness, clubbing, pedal edema Neurological exam: PRESENT: alert, awake, oriented to person, oriented to place, CN II-XII grossly intact. ABSENT: motor sensory deficit Results Laboratory Results: 05/22/19 05:45 05/22/19 05:45 05/22/19 05/22/19 05:45 05:45 WBC 9.0 RBC 3.13 L Hgb 10.1 L Hct 30.0 L MCV 96 MCH 32.4 MCHC 33.9 RDW 16.8 H Plt Count 226 Sodium 145.3 H Potassium 3.2 L Chloride 102 Carbon Dioxide 37 H Anion Gap 6 BUN 28 H Creatinine 1.70 H Est GFR ( Amer) 35 L Glucose 71 L Calcium 11.8 H Phosphorus 3.1 Magnesium 1.7 05/20/19 20:20 Sputum Gram Stain - Final 05/20/19 20:20 Sputum Sputum Culture - Final 05/20/19 05/20/19 16:34 16:34 Creatine Kinase < 20 L CK-MB (CK-2) 0.59 Troponin I 0.024 Impressions: Chest X-Ray 05/20/19 15:50 IMPRESSION: STABLE CHRONIC CHANGES. NO ACUTE RADIOGRAPHIC FINDING IN THE CHEST. Chest CT 05/20/19 17:15 IMPRESSION: Right hilar scarring. Findings are similar to the prior study. No new lung consolidations or nodules. Head CT 05/20/19 17:16 IMPRESSION: No acute intracranial hemorrhage. Extensive chronic small vessel ischemic changes. Assessment and Plan - Diagnosis (1) Acute metabolic encephalopathy Is this a current diagnosis for this admission?: Yes Plan: Improving. Likely related to acute renal failure and hypercalcemia. (2) ARF (acute renal failure) Is this a current diagnosis for this admission?: Yes Plan: 05/21: Creatinine has slightly improved today with IV fluids. Decrease IV fluids from 160 cc/h to 100 cc/h. 05/22: Creatinine has slightly trended up today (1.6->1.4->1.7) after decreasing IV fluids yesterday. Granddaughter is at the bedside and she reports that patient did have poor oral intake in the past 3 days. Will increase IV fluids to 125 cc/h. (3) Hypercalcemia Is this a current diagnosis for this admission?: Yes Plan: 05/21: Hypercalcemia is likely related more to acute renal failure and possible dehydration. Discontinue calcitonin. Continue IV fluids. Will check a PTH level as well. 05/22: PTH is low. Alsos ent for PTHrP and vitamin D levels. (4) Hypokalemia Is this a current diagnosis for this admission?: Yes Plan: Replace with oral and IV potassium. - Plan Summary Summary: Patient is admitted to [facility] for evaluation and treatment. A consultation will be obtained with hematology/oncology due to her significant hypercalcemia and her history of both breast and lung cancer. She will be given supportive and symptomatic cares. She will receive IV fluids and her hypercalcemia will be treated with Miacalcin and Zometa. Patient will have every 4 hours neuro checks and ongoing clinical evaluation. Daily metabolic profiles, magnesium levels and CBCs will be obtained. She will be continued on her usual medications for control of her hypertension, coronary artery disease, hypothyroidism and diabetes. Her vital signs will be assessed every 4 hours patient will be in a telemetry monitored bed. Before meals and at bedtime Accu-Cheks will be obtained with sliding scale insulin for treatment of hyperglycemia and a hypoglycemic protocol in place. A thyroid profile will also be obtained. - Time Time Spent with patient: 25-34 minutes
[2019-05-22 15:38] LABS: URINE AMPHETAMINES SCREEN NEGATIVE; URINE BARBITURATES SCREEN NEGATIVE; URINE BENZODIAZEPINES SCREEN NEGATIVE; URINE COCAINE SCREEN NEGATIVE; URINE MARIJUANA (THC) SCREEN NEGATIVE; URINE METHADONE SCREEN NEGATIVE; URINE PHENCYCLIDINE SCREEN NEGATIVE
[2019-05-23] MEDS: IPRATROPIUM BROMIDE 0.02% NEB 0.5 MG/2.5 ML AMPUL NEB SCH ×3 (00:13→16:29)
[2019-05-23] MEDS: LEVALBUTEROL HCL NEB 1.25 MG/3 ML AMPUL NEB SCH ×3 (00:13→16:29)
[2019-05-23] MEDS: HEPARIN SOD (PORCINE) 5,000 UNIT/ML 1 ML VIAL SUBCUT SCH ×3 (05:26→22:03)
[2019-05-23 06:30] LABS: HEMATOCRIT 26.1 % (36.0-47.0); HEMOGLOBIN 8.7 g/dL (12.0-15.5); MEAN CORPUSCULAR HEMOGLOBIN 31.8 pg (27.0-33.4); MEAN CORPUSCULAR HGB CONC 33.4 g/dL (32.0-36.0); MEAN CORPUSCULAR VOLUME 95 fl (80-97); PLATELET COUNT 186 10^3/uL (150-450); RED BLOOD COUNT 2.75 10^6/uL (3.72-5.28); RED CELL DISTRIBUTION WIDTH 16.5 % (11.5-14.0); WHITE BLOOD COUNT 6.6 10^3/uL (4.0-10.5)
[2019-05-23 06:51] LABS: BLOOD UREA NITROGEN 25 mg/dL (7-20); CALCIUM 11.1 mg/dL (8.4-10.2); GLUCOSE 77 mg/dL (75-110); PHOSPHORUS 3.5 mg/dL (2.5-4.5); POTASSIUM 3.4 mmol/L (3.6-5.0)
[2019-05-23 07:05] LABS: CARBON DIOXIDE 36 mmol/L (22-30); CHLORIDE 106 mmol/L (98-107)
[2019-05-23 07:13] LABS: ANION GAP 5 (5-19)
[2019-05-23] MEDS: BUDESONIDE NEB 0.5 MG/2 ML AMPUL NEB SCH ×2 (08:10→20:51)
[2019-05-23 09:59] LABS: ARTERIAL BLOOD BASE EXCESS 8.8 mmol/L; ARTERIAL BLOOD H2CO3 1.94 mmol/L (1.05-1.35); ARTERIAL BLOOD HCO3 35.8 mmol/L (20-24); ARTERIAL BLOOD O2 SATURATION 66.3 % (94-98); ARTERIAL BLOOD PCO2 64.6 mmHg (35-45); ARTERIAL BLOOD PH 7.36 (7.35-7.45); ARTERIAL BLOOD TOTAL CO2 37.7 mmol/L (21-25)
[2019-05-23 10:00] LABS: ARTERIAL BLOOD FIO2 2L
[2019-05-23] MEDS ORDERED: ONDANSETRON HCL INJ/PF 4 MG/2 ML SDV IV PRN (10:00)
[2019-05-23] MEDS: FLUTICASONE/VILANTEROL 200-25 MCG/DOSE IH SCH (10:18)
[2019-05-23] MEDS: DOCUSATE SODIUM 100 MG CAPSULE PO SCH (10:18)
[2019-05-23] MEDS: METHYLPREDNISOLONE INJ 40 MG/1 ML SDV IV SCH ×2 (10:18→22:03)
--- NOTE | 2019-05-23 11:37 | RADIOLOGY REPORT (SQ) ---
EXAM DESCRIPTION: CHEST SINGLE VIEW COMPLETED DATE/TIME: 05/23/2019 11:23 am REASON FOR STUDY: low oxygen , crackles COMPARISON: 05/20/2019 EXAM PARAMETERS: NUMBER OF VIEWS: One view. TECHNIQUE: Single frontal radiographic view of the chest acquired. RADIATION DOSE: NA LIMITATIONS: None. FINDINGS: LUNGS AND PLEURA: No opacities, masses or pneumothorax. No pleural effusion. MEDIASTINUM AND HILAR STRUCTURES: Right hilar scarring. HEART AND VASCULAR STRUCTURES: Cardiomegaly. BONES: No acute findings. HARDWARE: None in the chest. OTHER: No other significant finding. IMPRESSION: NO ACUTE RADIOGRAPHIC FINDING IN THE CHEST. TECHNICAL DOCUMENTATION: JOB ID: [id number] [employer]- All Rights Reserved Reading location - IP/workstation name: [email or web address]
[2019-05-23] MEDS: NORMAL SALINE 1000 ML 1,000 ML IV PRN (11:55)
[2019-05-23] MEDS: POTASSI CL 20 MEQ/50 ML RIDER 20 MEQ/50 ML RTUPB IV SCH ×2 (11:56→14:26)
--- NOTE | 2019-05-23 12:16 | PDOC CONSULTATION ---
Consultation Consult Date: 05/23/19 Provider Consulted: EUGENIE CHAVEZ History of Present Illness Admission Date/PCP: 05/20/19 19:59 ARASELI AGUILAR MD History of Present Illness: TRENTON MCCOY is a 73 year old female metastatic lung cancer to the brain status post radiation and chemotherapy, diabetes mellitus type 2 and chronic kidney disease who was admitted on May 20 because of confusion and lethargy. History is obtained from records as the patient is currently lethargic and cannot give any form of history. When she came in she had hypercalcemia of 13.2. She was treated with IV fluids initially with lactated Ringer's and now normal saline along with a dose of calcitonin and Zometa intravenously. Calcium is now improved to 11.1. She also came in with elevated creatinine of 1.66. Her baseline creatinine a couple weeks prior to admission ranges around 1.4-1.5. Today she has a BUN of 25 and creatinine of 1.86. She is nonoliguric with urine output of 1375 mL for the last 24 hours. Her blood pressures are acceptable. Due to the patient's mental status went downhill so she was placed on BiPAP and ABG was done which showed CO2 retention but unchanged from admission. I was told by Dr. Murrieta that he is going to repeat the ABG. Her chest x-ray today was unremarkable. On admission she also had a head CT scan and a chest CT scan and CT of the abdomen which did not show any acute findings. The CT scan of the abdomen also showed no hydronephrosis nor hydroureter nor calcifications. She was seen by Dr. Noble, oncologist. Patient is also currently being treated with IV Solu-Medrol. She has a sputum growing pseudomonas aeruginosa. Currently the patient does not have IV access so that IV fluid is not been running for hours. Past Medical History Cardiac Medical History: Reports: Atrial Fibrillation, Coronary Artery Disease, Myocardial Infarction Pulmonary Medical History: Reports: Asthma, Bronchitis, Chronic Obstructive Pulmonary Disease (COPD), Pneumonia, Respiratory Failure - Chronic respiratory failure EENT Medical History: Reports: Cataracts Neurological Medical History: Reports: Other - History of brain metastasis from lung CA S/P chemo and radiation Endocrine Medical History: Reports: Diabetes Mellitus Type 2, Hypothyroidism, Obesity Malignancy Medical History: Reports: Brain Cancer - Lung cancer with brain metastases, 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 GI Medical History: Reports: Gastroesophageal Reflux Disease Musculoskeltal Medical History: Reports: Arthritis, Gout Psychiatric Medical History: Reports: Dementia, Depression, Tobacco Dependency Infectious Medical History: Reports: Clostridium Difficile Hematology Medical History: Reports Anemia Past Surgical History Past Surgical History: Reports: Cholecystectomy, Orthopedic Surgery - Foot surgery, Other - Bilateral cataract surgery Social History Information Source: [facility] Records Lives with: Family Smoking Status: Former Smoker Electronic Cigarette use?: No Frequency of Alcohol Use: None Hx Recreational Drug Use: No Drugs: None Hx Prescription Drug Abuse: No - Advance Directive Resuscitation Status: Full Code Family History Family History: Malignancy - Lung cancer Parental Family History Reviewed: Yes Children Family History Reviewed: Yes Sibling(s) Family History Reviewed.: Yes Medication/Allergy Home Medications: Albuterol Sulfate [Ventolin 0.083% Neb 2.5 mg/3 ml Ampul] 1 vial NEB RTTID 05/21/19 Budesonide/Formoterol Fumarate [Symbicort Hfa 160-4.5 Mcg Inhaler 6 gm] 2 puff IH Q12 05/21/19 Ipratropium/Albuterol Sulfate [Duoneb 3 ml Ampul] 3 ml NEB RTQID 05/21/19 Levothyroxine Sodium 50 mcg PO Q6AM 05/21/19 Lorazepam [Ativan 1 mg Tablet] 0.5 mg PO BID 05/21/19 Nystatin [Mycostatin Topical Powder 15 gm] 1 applic TP QID 05/21/19 Potassium Chloride [Klor-Con 10 Meq Capsule ER] 10 meq PO DAILY 05/21/19 Prednisone [Deltasone 10 mg Tablet] 10 mg PO DAILY 05/21/19 Allergies/Adverse Reactions: azithromycin Allergy (Verified 12/30/18 17:18) cephalexin Allergy (Verified 12/30/18 17:18) Penicillins Allergy (Verified 12/30/18 17:18) amoxicillin [Amoxicillin] Adverse Reaction (Verified 12/30/18 17:18) visual hallucinations erythromycin base [Erythromycin Base] Adverse Reaction (Verified 12/30/18 17:18) visual hallucinations Potassium Clavulanate * [From Augmentin] Adverse Reaction (Verified 12/30/18 17:18) visual hallucinations Review of Systems ROS unobtainable: Due to mental status Physical Exam Vital Signs: Temp Pulse Resp BP Pulse Ox 98.0 F 100 18 144/88 H 96 05/23/19 07:52 05/23/19 08:10 05/23/19 11:05 05/23/19 07:52 05/23/19 11:05 Intake & Output 05/22/19 05/23/19 05/24/19 06:59 06:59 06:59 Intake Total 1000 1400 Output Total 1025 1375 Balance -25 25 Weight 76.1 kg 76.1 kg Exam: General appearance: Patient is currently lethargic on BiPAP, well-developed, well-nourished Head exam: PRESENT: atraumatic, normocephalic Eye exam: PRESENT: Eyes are closed Mouth exam: PRESENT: moist, neck supple, tongue midline Neck exam: PRESENT: full ROM. ABSENT: carotid bruit, JVD, lymphadenopathy, thyromegaly Respiratory exam: PRESENT: Diminished to auscultation bilaterally. ABSENT: rales, rhonchi, stridor, wheezes Cardiovascular exam: PRESENT: RRR, soft +S1, +S2. ABSENT: systolic murmur Pulses: PRESENT: normal radial pulses, normal dorsalis pedis pulses GI/Abdominal exam: PRESENT: normal bowel sounds, soft. Obese ABSENT: guarding, mass, tenderness Rectal exam: Deferred Extremities exam: ABSENT: calf tenderness, pedal edema Musculoskeletal: PRESENT: full ROM. ABSENT: deformity Neurological exam: PRESENT: Lethargic and noncommunicative. Does not open her eyes when prompted. Does move her arms a little bit with some tremors and shakiness ABSENT: motor sensory deficit Psychiatric exam: PRESENT: appropriate affect, normal mood. ABSENT: homicidal ideation, suicidal ideation Skin exam: PRESENT: intact, dry, warm. Poor to fair skin turgor ABSENT: rash Results Laboratory Results: 05/23/19 05:24 05/23/19 05:24 05/23/19 05/23/19 05/23/19 05:24 05:24 09:40 WBC 6.6 RBC 2.75 L Hgb 8.7 L Hct 26.1 L MCV 95 MCH 31.8 MCHC 33.4 RDW 16.5 H Plt Count 186 Carbonic Acid 1.94 H HCO3/H2CO3 Ratio 18:1 ABG pH 7.36 ABG pCO2 64.6 H ABG pO2 37.0 L* ABG HCO3 35.8 H ABG O2 Saturation 66.3 L ABG Base Excess 8.8 FiO2 2L Sodium 146.6 H Potassium 3.4 L Chloride 106 Carbon Dioxide 36 H Anion Gap 5 BUN 25 H Creatinine 1.86 H Est GFR ( Amer) 32 L Glucose 77 Calcium 11.1 H Phosphorus 3.5 Magnesium 1.7 05/21/19 12:55 Sputum Gram Stain - Final 05/21/19 12:55 Sputum Sputum Culture - Final Pseudomonas Aeruginosa Normal Jayshree 05/20/19 05/20/19 16:34 16:34 Creatine Kinase < 20 L CK-MB (CK-2) 0.59 Troponin I 0.024 Impressions: Chest CT 05/20/19 17:15 IMPRESSION: Right hilar scarring. Findings are similar to the prior study. No new lung consolidations or nodules. Head CT 05/20/19 17:16 IMPRESSION: No acute intracranial hemorrhage. Extensive chronic small vessel ischemic changes. Abdomen/Pelvis CT 05/22/19 12:14 IMPRESSION: Grossly stable CT abdomen and pelvis. No acute findings. Chest X-Ray 05/23/19 00:00 IMPRESSION: NO ACUTE RADIOGRAPHIC FINDING IN THE CHEST. Assessment & Plan - Diagnosis (1) MARY LOU (acute kidney injury) Is this a current diagnosis for this admission?: Yes Plan: Patient is nonoliguric. I think the worsening of the patient's kidney function is due to initial hypercalcemia and dehydration. No other obvious precipitating factors. No proteinuria nor microhematuria. She needs to continue with IV fluids after central line placement today. No need of any renal replacement therapy. (2) Acute metabolic encephalopathy Is this a current diagnosis for this admission?: Yes Plan: Secondary to acute illness with initial hypercalcemia, dehydration and possibly CO2 retention. (3) Hypercalcemia Is this a current diagnosis for this admission?: Yes Plan: Continue IV fluids with normal saline at this time. It has improved from admission. Per oncology no evidence of recurrence of malignancy so no need to think of any tumor lysis syndrome. (4) Hypokalemia Is this a current diagnosis for this admission?: Yes Plan: Due to IV hydration. Replace as necessary. (5) Acute and chronic respiratory failure with hypercapnia Is this a current diagnosis for this admission?: Yes Plan: Per hospitalist service. (6) Dehydration Is this a current diagnosis for this admission?: Yes Plan: Continue IV fluid hydration. (7) Acute bronchitis Qualifiers: Bronchitis organism: unspecified organism Qualified Code(s): J20.9 - Acute bronchitis, unspecified Is this a current diagnosis for this admission?: Yes Plan: Sputum has some Pseudomonas aeruginosa. May need IV antibiotics. Defer to hospitalist service. (8) Anemia Qualifiers: Anemia type: unspecified type Qualified Code(s): D64.9 - Anemia, unspecified Is this a current diagnosis for this admission?: Yes Plan: Monitor. (9) COPD (chronic obstructive pulmonary disease) Qualifiers: COPD type: unspecified COPD Qualified Code(s): J44.9 - Chronic obstructive pulmonary disease, unspecified Is this a current diagnosis for this admission?: Yes Plan: Currently on BiPAP. (10) Hypertension Qualifiers: Hypertension type: essential hypertension Qualified Code(s): I10 - Essential (primary) hypertension Is this a current diagnosis for this admission?: Yes (11) Lung cancer metastatic to brain Is this a current diagnosis for this admission?: Yes Plan: No recurrence per oncology. (12) Type 2 diabetes mellitus Qualifiers: Diabetes mellitus rn long term care insulin use: without rn long term care use Diabetes mellitus complication status: with ophthalmic complications Diabetes mellitus complication detail: with cataract Qualified Code(s): E11.36 - Type 2 diabetes mellitus with diabetic cataract Is this a current diagnosis for this admission?: Yes - Notes Notes: Thank you for this consultation. Discussed with Dr. Murrieta. - Time Time Spent: 50 to 70 Minutes
[2019-05-23 13:05] LABS: ARTERIAL BLOOD BASE EXCESS 4.7 mmol/L; ARTERIAL BLOOD FIO2 28%; ARTERIAL BLOOD HCO3 30.4 mmol/L (20-24); ARTERIAL BLOOD O2 SATURATION 97.8 % (94-98); ARTERIAL BLOOD PCO2 49.9 mmHg (35-45); ARTERIAL BLOOD PO2 106.8 mmHg (80-100); ARTERIAL BLOOD TOTAL CO2 31.9 mmol/L (21-25)
--- NOTE | 2019-05-23 13:52 | PDOC PROGRESS REPORT ---
Subjective Progress Note for:: 05/23/19 Subjective:: This is a 73-year-old past medical history of dementia, COPD and remote history of lung cancer who was brought in due to lethargy and confusion. Patient was noted to have significant hypercalcemia and was also found to be in acute renal failure. She was started on IV fluids. 05/21: Upon encounter, she appears comfortable and appears her mentation has improved. She is able to tell me her name, she knows that she is in the hospital and she is able to tell me that it is 2018 although she thinks it is October. She denies chest pain or shortness of breath. 05/22: She had an episode of transient confusion and restlessness last night. Upon encounter this morning, she is more conversant. She is oriented to person and place. She denies chest pain or shortness of breath. 05/23: Patient is very lethargic upon encounter this morning. She moans to painful stimulus. No fever. She apparently was unable to get IV fluids last night as she lost her IV access and was unable to get a PICC line. Reason For Visit: HYPERCALCEMIA,ACUTE METABOLIC ENCEPHALOPATHY Physical Exam Vital Signs: Temp Pulse Resp BP Pulse Ox 97.7 F 103 H 18 150/117 H 98 05/23/19 12:24 05/23/19 12:24 05/23/19 12:24 05/23/19 12:24 05/23/19 12:24 Intake & Output 05/22/19 05/23/19 05/24/19 06:59 06:59 06:59 Intake Total 1000 1400 Output Total 1025 1375 Balance -25 25 Weight 167 lb 12.348 oz 167 lb 12.348 oz General appearance: PRESENT: other - lethargic Head exam: PRESENT: atraumatic, normocephalic Eye exam: PRESENT: conjunctiva pink, EOMI, PERRLA. ABSENT: scleral icterus Ear exam: PRESENT: normal external ear exam Mouth exam: PRESENT: moist, tongue midline Neck exam: ABSENT: carotid bruit, JVD, lymphadenopathy, thyromegaly Respiratory exam: PRESENT: rhonchi, wheezes. ABSENT: rales Cardiovascular exam: PRESENT: RRR. ABSENT: diastolic murmur, rubs, systolic murmur Pulses: PRESENT: normal dorsalis pedis pul GI/Abdominal exam: PRESENT: normal bowel sounds, soft. ABSENT: distended, guarding, mass, organolmegaly, rebound, tenderness Rectal exam: PRESENT: deferred Neurological exam: PRESENT: altered, other - lethargic. ABSENT: oriented to person, oriented to place, oriented to time, oriented to situation Results Laboratory Results: 05/23/19 05:24 05/23/19 05:24 05/23/19 05/23/19 05/23/19 05:24 05:24 09:40 WBC 6.6 RBC 2.75 L Hgb 8.7 L Hct 26.1 L MCV 95 MCH 31.8 MCHC 33.4 RDW 16.5 H Plt Count 186 Carbonic Acid 1.94 H HCO3/H2CO3 Ratio 18:1 ABG pH 7.36 ABG pCO2 64.6 H ABG pO2 37.0 L* ABG HCO3 35.8 H ABG O2 Saturation 66.3 L ABG Base Excess 8.8 FiO2 2L Sodium 146.6 H Potassium 3.4 L Chloride 106 Carbon Dioxide 36 H Anion Gap 5 BUN 25 H Creatinine 1.86 H Est GFR ( Amer) 32 L Glucose 77 Calcium 11.1 H Phosphorus 3.5 Magnesium 1.7 05/23/19 12:50 WBC RBC Hgb Hct MCV MCH MCHC RDW Plt Count Carbonic Acid 1.50 H HCO3/H2CO3 Ratio 20:1 ABG pH 7.40 ABG pCO2 49.9 H ABG pO2 106.8 H ABG HCO3 30.4 H ABG O2 Saturation 97.8 ABG Base Excess 4.7 FiO2 28% Sodium Potassium Chloride Carbon Dioxide Anion Gap BUN Creatinine Est GFR ( Amer) Glucose Calcium Phosphorus Magnesium 05/21/19 12:55 Sputum Gram Stain - Final 05/21/19 12:55 Sputum Sputum Culture - Final Pseudomonas Aeruginosa Normal Jayshree 05/20/19 05/20/19 16:34 16:34 Creatine Kinase < 20 L CK-MB (CK-2) 0.59 Troponin I 0.024 Impressions: Chest CT 05/20/19 17:15 IMPRESSION: Right hilar scarring. Findings are similar to the prior study. No new lung consolidations or nodules. Abdomen/Pelvis CT 05/22/19 12:14 IMPRESSION: Grossly stable CT abdomen and pelvis. No acute findings. Chest X-Ray 05/23/19 00:00 IMPRESSION: NO ACUTE RADIOGRAPHIC FINDING IN THE CHEST. Assessment and Plan - Diagnosis (1) Acute metabolic encephalopathy Is this a current diagnosis for this admission?: Yes Plan: 05/22: Improving. Likely related to acute renal failure and hypercalcemia. 05/23: Patient is somnolent upon encounter this morning. Stat ABG and CT brain. (2) ARF (acute renal failure) Is this a current diagnosis for this admission?: Yes Plan: 05/21: Creatinine has slightly improved today with IV fluids. Decrease IV fluids from 160 cc/h to 100 cc/h. 05/22: Creatinine has slightly trended up today (1.6->1.4->1.7) after decreasing IV fluids yesterday. Granddaughter is at the bedside and she reports that patient did have poor oral intake in the past 3 days. Will increase IV fluids to 125 cc/h. 05/23: Crea up at 1.8. She apparently was unable to get IV fluids last night as she lost her IV access and was unable to get a PICC line. (3) Hypercalcemia Is this a current diagnosis for this admission?: Yes Plan: Improving. 05/21: Hypercalcemia is likely related more to acute renal failure and possible dehydration. Discontinue calcitonin. Continue IV fluids. Will check a PTH level as well. 05/22: PTH is low. Also sent for PTHrP and vitamin D levels. (4) Hypokalemia Is this a current diagnosis for this admission?: Yes Plan: Continue with replacement. - Plan Summary Summary: Patient is admitted to [facility] for evaluation and treatment. A consultation will be obtained with hematology/oncology due to her significant hypercalcemia and her history of both breast and lung cancer. She will be given supportive and symptomatic cares. She will receive IV fluids and her hypercalcemia will be treated with Miacalcin and Zometa. Patient will have every 4 hours neuro checks and ongoing clinical evaluation. Daily metabolic profiles, magnesium levels and CBCs will be obtained. She will be continued on her usual medications for control of her hypertension, coronary artery disease, hypothyroidism and diab etes. Her vital signs will be assessed every 4 hours patient will be in a telemetry monitored bed. Before meals and at bedtime Accu-Cheks will be obtained with sliding scale insulin for treatment of hyperglycemia and a hypoglycemic protocol in place. A thyroid profile will also be obtained. - Time Time Spent with patient: 25-34 minutes
--- NOTE | 2019-05-23 13:56 | RADIOLOGY REPORT (SQ) ---
EXAM DESCRIPTION: CT HEAD WITHOUT COMPLETED DATE/TIME: 05/23/2019 1:40 pm REASON FOR STUDY: somnolence COMPARISON: 05/20/2019 TECHNIQUE: Axial images acquired through the brain without intravenous contrast. Images reviewed wi th bone, brain and subdural windows. Additional sagittal and coronal reconstructions were generated. Images stored on PACS. All CT scanners at this facility use dose modulation, iterative reconstruction, and/or weight based d osing when appropriate to reduce radiation dose to as low as reasonably achievable (ALARA). [facility]: Dose Right [facility]: CareDose [facility]: Dose Right [facility]: Teradose 4D [facility]: StandDesk RADIATION DOSE: mGy. LIMITATIONS: None. FINDINGS: VENTRICLES: Prominent. CEREBRUM: No masses. No hemorrhage. No midline shift. Areas of low density in the white matter mos t likely due to chronic micro-vascular ischemic change. No evidence for acute infarction. CEREBELLUM: No masses. No hemorrhage. No alteration of density. No evidence for acute infarction. EXTRAAXIAL SPACES: Age-related involutional change. No fluid collections. No masses. ORBITS AND GLOBE: No intra- or extraconal masses. Normal contour of globe without masses. CALVARIUM: No fracture. PARANASAL SINUSES: No fluid or mucosal thickening. SOFT TISSUES: No mass or hematoma. OTHER: No other significant finding. IMPRESSION: CHRONIC CHANGES OF ATROPHY AND MICROVASCULAR ISCHEMIA. NO ACUTE PROCESS. EVIDENCE OF ACUTE STROKE: NO. TECHNICAL DOCUMENTATION: JOB ID: [id number] Quality ID # [id number]: Final reports with documentation of one or more dose reduction techniques (e.g., Au tomated exposure control, adjustment of the mA and/or kV according to patient size, use of iterative reconstruction technique) 2010 [employer]- All Rights Reserved Reading location - IP/workstation name: [facility]
[2019-05-23] MEDS: CEFEPIME 1 GM/D5W RTU 1 GM/50 ML RTUPB IV SCH (17:33)
[2019-05-23] MEDS: FAMOTIDINE 20 MG TABLET PO SCH (22:03)
--- NOTE | 2019-05-23 22:29 | Operative Report ---
Operative Report DATE OF SURGERY: 05/23/19 PREOPERATIVE DIAGNOSIS: Poor veins for IV access POSTOPERATIVE DIAGNOSIS: Same OPERATION: Placement of right internal jugular vein triple-lumen catheter under ultrasound guidance SURGEON: WES SARGENT ANESTHESIA: Local TISSUE REMOVED OR ALTERED: None COMPLICATIONS: None INTRAOPERATIVE FINDINGS: Deep right internal jugular vein PROCEDURE: Patient was placed in Trendelenburg position on the right neck prepped and draped in the usual sterile fashion. With the use of the ultrasound the right internal jugular vein was then identified and local anesthesia infiltrated over the skin overlying the vein. The vein noted to be relatively deep since patient is very short neck and somewhat obese. The right internal jugular vein was then punctured under ultrasound guidance. Backflow from the needle was dark blood and nonpulsatile. The guidewire was then passed through the needle to a distance of about 30 cm. Needle was removed and the puncture site dilated. A triple-lumen catheter was then threaded through the guidewire to a distance of about 15 cm. Catheter was then anchored to the skin with 3-0 nylon. All the 3 ports aspirated blood easily and instilled saline easily. Biopatch placed at the insertion site and a transparent sterile dressing placed over the Biopatch and catheter. Chest x-ray will be obtained for placement. Patient tolerated procedure well.
--- NOTE | 2019-05-23 22:36 | RADIOLOGY REPORT (SQ) ---
XR CHEST 1 VIEW CLINICAL STATEMENT: New Central Line Placement COMPARISON: 05/23/2019 and 05/20/2019. FINDINGS: Heart is mildly enlarged. Right IJ CVC is in place with tip in the mid SVC. Aortic arch is mildly calcified. No pneumothorax. No pleural effusions. IMPRESSION: No pneumothorax. Right IJ CVC in place.
[2019-05-24] MEDS: LEVALBUTEROL HCL NEB 1.25 MG/3 ML AMPUL NEB SCH ×4 (00:06→23:51)
[2019-05-24] MEDS: IPRATROPIUM BROMIDE 0.02% NEB 0.5 MG/2.5 ML AMPUL NEB SCH ×4 (00:06→23:51)
[2019-05-24] MEDS: NORMAL SALINE 1000 ML 1,000 ML IV PRN ×3 (02:14→20:52)
[2019-05-24] MEDS: HEPARIN SOD (PORCINE) 5,000 UNIT/ML 1 ML VIAL SUBCUT SCH ×3 (05:35→21:27)
[2019-05-24] MEDS: BUDESONIDE NEB 0.5 MG/2 ML AMPUL NEB SCH ×2 (08:06→20:46)
[2019-05-24 09:07] LABS: ABSOLUTE LYMPHOCYTES (AUTO) 0.4 10^3/uL (0.5-4.7); ABSOLUTE MONOCYTES (AUTO) 0.4 10^3/uL (0.1-1.4); ABSOLUTE NEUT (AUTO) 4.6 10^3/uL (1.7-8.2); BASOPHILS % (AUTO) 0.1 % (0-2); EOSINOPHILS % (AUTO) 0.1 % (0-6); HEMATOCRIT 21.9 % (36.0-47.0); LYMPHOCYTES % (AUTO) 7.6 % (13-45); MEAN CORPUSCULAR HEMOGLOBIN 32.2 pg (27.0-33.4); MEAN CORPUSCULAR HGB CONC 33.4 g/dL (32.0-36.0); MEAN CORPUSCULAR VOLUME 96 fl (80-97); MONOCYTES % (AUTO) 7.2 % (3-13); PLATELET COUNT 152 10^3/uL (150-450); RED BLOOD COUNT 2.27 10^6/uL (3.72-5.28); RED CELL DISTRIBUTION WIDTH 16.5 % (11.5-14.0); TOTAL CELLS COUNTED % (AUTO) 100 %; WHITE BLOOD COUNT 5.4 10^3/uL (4.0-10.5)
[2019-05-24 09:10] LABS: HEMOGLOBIN 7.3 g/dL (12.0-15.5)
[2019-05-24] MEDS: DOCUSATE SODIUM 100 MG CAPSULE PO SCH (10:11)
[2019-05-24] MEDS: FLUTICASONE/VILANTEROL 200-25 MCG/DOSE IH SCH (10:11)
[2019-05-24] MEDS: CEFEPIME 1 GM/D5W RTU 1 GM/50 ML RTUPB IV SCH (10:15)
[2019-05-24] MEDS: METHYLPREDNISOLONE INJ 40 MG/1 ML SDV IV SCH (10:15)
[2019-05-24 11:56] LABS: BLOOD UREA NITROGEN 24 mg/dL (7-20); CALCIUM 9.3 mg/dL (8.4-10.2); GLUCOSE 140 mg/dL (75-110); POTASSIUM 3.5 mmol/L (3.6-5.0)
[2019-05-24 12:01] LABS: CARBON DIOXIDE 33 mmol/L (22-30); CHLORIDE 105 mmol/L (98-107)
[2019-05-24 12:09] LABS: ANION GAP 3 (5-19)
--- NOTE | 2019-05-24 14:02 | PDOC PROGRESS REPORT ---
Subjective Progress Note for:: 05/24/19 Subjective:: Patient is now awake and communicative and answering questions appropriately most of the time. She states that she is short of breath, hungry and sore all over. Her urine output is decreased for the last 24 hours but her intake is also not that much aside from the IV fluids. She only made 700 mL of urine for the past 24 hours. Reason For Visit: HYPERCALCEMIA,ACUTE METABOLIC ENCEPHALOPATHY Physical Exam Vital Signs: Temp Pulse Resp BP Pulse Ox 98.4 F 89 20 129/64 H 98 05/24/19 04:35 05/24/19 08:06 05/24/19 08:06 05/24/19 08:00 05/24/19 08:06 Intake & Output 05/23/19 05/24/19 05/25/19 06:59 06:59 06:59 Intake Total 1400 2120 1000 Output Total 1375 700 Balance 25 1420 1000 Weight 76.1 kg 77.8 kg Exam: General appearance: PRESENT: no acute distress, cooperative, well-developed, well-nourished Head exam: PRESENT: atraumatic, normocephalic Eye exam: PRESENT: conjunctiva pale, PERRLA. ABSENT: scleral icterus Neck exam: ABSENT: JVD Respiratory exam: PRESENT: Diminished breath sounds. Positive rhonchi and wheezes diffusely ABSENT: crackles, rales, rhonchi, unlabored, wheezes Cardiovascular exam: PRESENT: Regular rate rhythm -+S1, +S2. ABSENT: diastolic murmur, systolic murmur GI/Abdominal exam: PRESENT: normal bowel sounds, soft. ABSENT: guarding, mass, tenderness Extremities exam: ABSENT: No edema Neurological exam: PRESENT: alert, awake, oriented to person, place but not to time. Skin exam: PRESENT: dry, warm, Results Laboratory Results: 05/24/19 08:23 05/24/19 08:23 05/23/19 05/24/19 05/24/19 16:59 08:23 08:23 WBC 5.4 RBC 2.27 L Hgb 7.3 L Hct 21.9 L MCV 96 MCH 32.2 MCHC 33.4 RDW 16.5 H Plt Count 152 Seg Neutrophils % 85.0 H Sodium 140.5 Potassium 4.3 3.5 L Chloride 105 Carbon Dioxide 33 H Anion Gap 3 L BUN 24 H Creatinine 1.61 H Est GFR ( Amer) 38 L Glucose 140 H Calcium 9.3 05/20/19 05/20/19 16:34 16:34 Creatine Kinase < 20 L CK-MB (CK-2) 0.59 Troponin I 0.024 Impressions: Chest CT 05/20/19 17:15 IMPRESSION: Right hilar scarring. Findings are similar to the prior study. No new lung consolidations or nodules. Abdomen/Pelvis CT 05/22/19 12:14 IMPRESSION: Grossly stable CT abdomen and pelvis. No acute findings. Head CT 05/23/19 12:23 IMPRESSION: CHRONIC CHANGES OF ATROPHY AND MICROVASCULAR ISCHEMIA. NO ACUTE PROCESS. EVIDENCE OF ACUTE STROKE: NO. Assessment & Plan - Diagnosis (1) MARY LOU (acute kidney injury) Is this a current diagnosis for this admission?: Yes Plan: Secondary to hypercalcemia and dehydration. Currently improving and nonoliguric. Continue current management. (2) Acute metabolic encephalopathy Is this a current diagnosis for this admission?: Yes Plan: Seems improved today after a day of being on BiPAP. (3) Hypercalcemia Is this a current diagnosis for this admission?: Yes Plan: Resolved and normalized. Hospitalist service working up for other causes of hypercalcemia and the patient. So far she has low vitamin D of 21.5, low PTH of 4.7, and normal phosphorus of 4.2 with pending PTH RP. (4) Hypokalemia Is this a current diagnosis for this admission?: Yes Plan: Due to IV fluids. Replace potassium as needed. Will give oral 40 mEq of potassium in packets. (5) Acute and chronic respiratory failure with hypercapnia Is this a current diagnosis for this admission?: Yes (6) Dehydration Is this a current diagnosis for this admission?: Yes Plan: On IV fluids. (7) Acute bronchitis Qualifiers: Bronchitis organism: unspecified organism Qualified Code(s): J20.9 - Acute bronchitis, unspecified Is this a current diagnosis for this admission?: Yes Plan: On IV cefepime. (8) Anemia Qualifiers: Anemia type: unspecified type Qualified Code(s): D64.9 - Anemia, unspecified Is this a current diagnosis for this admission?: Yes Plan: Likely multifactorial cause due to acute illness and IV hydration. No obvious acute bleeding. Monitor for and consider blood transfusion if hemoglobin continues to go down. (9) COPD (chronic obstructive pulmonary disease) Qualifiers: COPD type: unspecified COPD Qualified Code(s): J44.9 - Chronic obstructive pulmonary disease, unspecified Is this a current diagnosis for this admission?: Yes Plan: Defer to hospitalist. (10) Hypertension Qualifiers: Hypertension type: essential hypertension Qualified Code(s): I10 - Essential (primary) hypertension Is this a current diagnosis for this admission?: Yes Plan: Controlled. (11) Lung cancer metastatic to brain Is this a current diagnosis for this admission?: Yes Plan: No recurrence per her oncology service. 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
--- NOTE | 2019-05-24 14:20 | PDOC PROGRESS REPORT ---
Subjective Progress Note for:: 05/24/19 Subjective:: This is a 73-year-old past medical history of dementia, COPD and remote history of lung cancer who was brought in due to lethargy and confusion. Patient was noted to have significant hypercalcemia and was also found to be in acute renal failure. She was started on IV fluids. 05/21: Upon encounter, she appears comfortable and appears her mentation has improved. She is able to tell me her name, she knows that she is in the hospital and she is able to tell me that it is 2018 although she thinks it is October. She denies chest pain or shortness of breath. 05/22: She had an episode of transient confusion and restlessness last night. Upon encounter this morning, she is more conversant. She is oriented to person and place. She denies chest pain or shortness of breath. 05/23: Patient is very lethargic upon encounter this morning. She moans to painful stimulus. No fever. She apparently was unable to get IV fluids last night as she lost her IV access and was unable to get a PICC line. 05/24: No acute event overnight. She is off BiPAP. Saturating well on 2 L nasal cannula. Upon encounter this morning, patient appears to be back on her baseline. She is awake and comfortable. She is conversant and well oriented to person and place. She does think it is January 2019. She denies chest pain or other acute complaints. Reason For Visit: HYPERCALCEMIA,ACUTE METABOLIC ENCEPHALOPATHY Physical Exam Vital Signs: Temp Pulse Resp BP Pulse Ox 98.4 F 89 20 129/64 H 98 05/24/19 04:35 05/24/19 08:06 05/24/19 08:06 05/24/19 08:00 05/24/19 08:06 Intake & Output 05/23/19 05/24/19 05/25/19 06:59 06:59 06:59 Intake Total 1400 2120 Output Total 1375 700 Balance 25 1420 Weight 167 lb 12.348 oz 171 lb 8.314 oz General appearance: PRESENT: no acute distress, well-developed, well-nourished Head exam: PRESENT: atraumatic, normocephalic Eye exam: PRESENT: conjunctiva pink, EOMI, PERRLA. ABSENT: scleral icterus Ear exam: PRESENT: normal external ear exam Mouth exam: PRESENT: moist, tongue midline Neck exam: ABSENT: carotid bruit, JVD, lymphadenopathy, thyromegaly Respiratory exam: PRESENT: rhonchi. ABSENT: rales, wheezes Cardiovascular exam: PRESENT: RRR. ABSENT: diastolic murmur, rubs, systolic murmur Pulses: PRESENT: normal dorsalis pedis pul GI/Abdominal exam: PRESENT: normal bowel sounds, soft. ABSENT: distended, guarding, mass, organolmegaly, rebound, tenderness Rectal exam: PRESENT: deferred Neurological exam: PRESENT: alert, awake, oriented to person, oriented to place, CN II-XII grossly intact. ABSENT: motor sensory deficit Results Laboratory Results: 05/24/19 08:23 05/23/19 05/23/19 05/24/19 12:50 16:59 08:23 WBC 5.4 RBC 2.27 L Hgb 7.3 L Hct 21.9 L MCV 96 MCH 32.2 MCHC 33.4 RDW 16.5 H Plt Count 152 Seg Neutrophils % 85.0 H Carbonic Acid 1.50 H HCO3/H2CO3 Ratio 20:1 ABG pH 7.40 ABG pCO2 49.9 H ABG pO2 106.8 H ABG HCO3 30.4 H ABG O2 Saturation 97.8 ABG Base Excess 4.7 FiO2 28% Potassium 4.3 05/21/19 12:55 Sputum Gram Stain - Final 05/21/19 12:55 Sputum Sputum Culture - Final Pseudomonas Aeruginosa Normal Jayshree 05/20/19 05/20/19 16:34 16:34 Creatine Kinase < 20 L CK-MB (CK-2) 0.59 Troponin I 0.024 Impressions: Chest CT 05/20/19 17:15 IMPRESSION: Right hilar scarring. Findings are similar to the prior study. No new lung consolidations or nodules. Abdomen/Pelvis CT 05/22/19 12:14 IMPRESSION: Grossly stable CT abdomen and pelvis. No acute findings. Chest X-Ray 05/23/19 00:00 IMPRESSION: No pneumothorax. Right IJ CVC in place. Head CT 05/23/19 12:23 IMPRESSION: CHRONIC CHANGES OF ATROPHY AND MICROVASCULAR ISCHEMIA. NO ACUTE PROCESS. EVIDENCE OF ACUTE STROKE: NO. Assessment and Plan - Diagnosis (1) Acute metabolic encephalopathy Is this a current diagnosis for this admission?: Yes Plan: 05/22: Improving. Likely related to acute renal failure and hypercalcemia. 05/23: Patient is somnolent upon encounter this morning. Stat ABG and CT brain. 05/24: Resolving. (2) ARF (acute renal failure) Is this a current diagnosis for this admission?: Yes Plan: 05/21: Creatinine has slightly improved today with IV fluids. Decrease IV fluids from 160 cc/h to 100 cc/h. 05/22: Creatinine has slightly trended up today (1.6->1.4->1.7) after decreasing IV fluids yesterday. Granddaughter is at the bedside and she reports that patient did have poor oral intake in the past 3 days. Will increase IV fluids to 125 cc/h. 05/23: Crea up at 1.8. She apparently was unable to get IV fluids last night as she lost her IV access and was unable to get a PICC line. 05/24: Slightly improved. Creatinine is down to 1.6 today. (3) Hypercalcemia Is this a current diagnosis for this admission?: Yes Plan: Improving. 05/21: Hypercalcemia is likely related more to acute renal failure and possible dehydration. Discontinue calcitonin. Continue IV fluids. Will check a PTH level as well. 05/22: PTH is low. Also sent for PTHrP and vitamin D levels. 05/24: Resolved. (4) Hypokalemia Is this a current diagnosis for this admission?: Yes Plan: Improved. Continue with replacement. - Plan Summary Summary: Patient is admitted to [facility] for evaluation and treatment. A consultation will be obtained with hematology/oncology due to her significant hypercalcemia and her history of both breast and lung cancer. She will be given supportive and symptomatic cares. She will receive IV fluids and her hypercalcemia will be treated with Miacalcin and Zometa. Patient will have every 4 hours neuro checks and ongoing clinical evaluation. Daily metabolic profiles, magnesium levels and CBCs will be obtained. She will be continued on her usual medications for control of her hypertension, coronary artery disease, hypothyroidism and diabetes. Her vital signs will be assessed every 4 hours patient will be in a telemetry monitored bed. Before meals and at bedtime Accu-Cheks will be obtained with sliding scale insulin for treatment of hyperglycemia and a hypoglycemic protocol in place. A thyroid profile will also be obtained. - Time Time Spent with patient: 25-34 minutes
[2019-05-24] MEDS ORDERED: POTASSIUM CHLORIDE 20 MEQ PACKET PO ONE (14:30)
--- NOTE | 2019-05-24 14:36 | RADIOLOGY REPORT (SQ) ---
EXAM DESCRIPTION: CHEST SINGLE VIEW COMPLETED DATE/TIME: 05/24/2019 2:18 pm REASON FOR STUDY: rales COMPARISON: Chest films 05/23/2019, CT chest 05/20/2019 EXAM PARAMETERS: NUMBER OF VIEWS: One view. TECHNIQUE: Single frontal radiographic view of the chest acquired. RADIATION DOSE: NA LIMITATIONS: None. FINDINGS: LUNGS AND PLEURA: Old post radiation change right perihilar lung parenchyma No acute infiltrates. No pleural effusion or pneumothorax. MEDIASTINUM AND HILAR STRUCTURES: Post radiation change right perihilar region. HEART AND VASCULAR STRUCTURES: Borderline cardiomegaly BONES: No acute findings. HARDWARE: Right jugular central line tip superior vena cava OTHER: No other significant finding. IMPRESSION: NO ACUTE RADIOGRAPHIC FINDING IN THE CHEST. TECHNICAL DOCUMENTATION: JOB ID: [id number] [employer]- All Rights Reserved Reading location - IP/workstation name: [email or web address]
[2019-05-24] MEDS: INSULIN REG, HUMAN 100 UNIT/ML 3 ML VIAL (PYX) SUBCUT PRN ×2 (17:01→22:30)
[2019-05-24 17:14] LABS: HEMATOCRIT 22.7 % (36.0-47.0); MEAN CORPUSCULAR HEMOGLOBIN 32.3 pg (27.0-33.4); MEAN CORPUSCULAR HGB CONC 33.3 g/dL (32.0-36.0); MEAN CORPUSCULAR VOLUME 97 fl (80-97); PLATELET COUNT 145 10^3/uL (150-450); RED BLOOD COUNT 2.35 10^6/uL (3.72-5.28); RED CELL DISTRIBUTION WIDTH 16.9 % (11.5-14.0); WHITE BLOOD COUNT 4.9 10^3/uL (4.0-10.5)
[2019-05-24 17:21] LABS: HEMOGLOBIN 7.6 g/dL (12.0-15.5)
--- NOTE | 2019-05-24 21:20 | PDOC CONSULTATION ---
Consultation Consult Date: 05/24/19 Provider Consulted: WES SARGENT Consult reason:: Pneumobilia on CAT scan History of Present Illness Admission Date/PCP: 05/20/19 19:59 ARASELI AGUILAR MD History of Present Illness: TRENTON MCCOY is a 73 year old female with history of lung and breast cancer and type 2 diabetes initially admitted for change in mental status. She had a CT scan of the abdomen on 05/22/19 which showed extensive pneumobilia which when compared to a CAT scan done on 09/17/2018 was essentially unchanged. Patient did have pneumobilia also 09/17/2018 after cholecystectomy. Patient denies any abdominal pains. Past Medical History Cardiac Medical History: Reports: Atrial Fibrillation, Congestive Heart Failure, Coronary Artery Disease, Myocardial Infarction, Hypertension Denies: DVT, Hyperlipidema, Pulmonary Embolism Pulmonary Medical History: Reports: Asthma, Bronchitis, Chronic Obstructive Pulmonary Disease (COPD), Pneumonia, Respiratory Failure - Chronic respiratory failure Denies: Sleep Apnea, Tuberculosis EENT Medical History: Reports: Cataracts Denies: Ears - Hearing aids Neurological Medical History: Reports: Other - History of brain metastasis from lung CA S/P chemo and radiation Denies: Hemorrhagic CVA, Ischemic CVA, Seizures Endocrine Medical History: Reports: Diabetes Mellitus Type 2, Hypothyroidism, O besity Denies: Diabetes Mellitus Type 1, Hyperthyroidism Renal/ Medical History: Denies: Chronic Kidney Disease, End Stage Renal Disease, Nephrolithiasis Malignancy Medical History: Reports: Brain Cancer - Lung cancer with brain metastases, Breast Cancer, 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 GI Medical History: Reports: Gastroesophageal Reflux Disease Denies: Cirrhosis, Hepatitis Musculoskeltal Medical History: Reports: Arthritis, Gout Skin Medical History: Denies: Eczema, Psoriasis Psychiatric Medical History: Reports: Dementia, Depression, Tobacco Dependency Denies: Alcohol Dependency, Bipolar Disorder, Substance Abuse Traumatic Medical History: Reports: None Hematology: Reports: Anemia, Bleeding Tendencies Infectious Medical History: Reports: Clostridium Difficile Past Surgical History Past Surgical History: Reports: Cholecystectomy, Orthopedic Surgery - Foot surgery, Other - Bilateral cataract surgery Social History Lives with: Family Smoking Status: Former Smoker Electronic Cigarette use?: No Frequency of Alcohol Use: None Hx Recreational Drug Use: No Drugs: None Hx Prescription Drug Abuse: No - Advance Directive Resuscitation Status: Full Code Family History Family History: COPD, Malignancy - Lung cancer Parental Family History Reviewed: Yes Children Family History Reviewed: No Sibling(s) Family History Reviewed.: No Medication/Allergy Home Medications: Albuterol Sulfate [Ventolin 0.083% Neb 2.5 mg/3 ml Ampul] 1 vial NEB RTTID 05/21/19 Budesonide/Formoterol Fumarate [Symbicort Hfa 160-4.5 Mcg Inhaler 6 gm] 2 puff IH Q12 05/21/19 Ipratropium/Albuterol Sulfate [Duoneb 3 ml Ampul] 3 ml NEB RTQID 05/21/19 Levothyroxine Sodium 50 mcg PO Q6AM 05/21/19 Lorazepam [Ativan 1 mg Tablet] 0.5 mg PO BID 05/21/19 Nystatin [Mycostatin Topical Powder 15 gm] 1 applic TP QID 05/21/19 Potassium Chloride [Klor-Con 10 Meq Capsule ER] 10 meq PO DAILY 05/21/19 Prednisone [Deltasone 10 mg Tablet] 10 mg PO DAILY 05/21/19 Allergies/Adverse Reactions: azithromycin Allergy (Verified 12/30/18 17:18) cephalexin Allergy (Verified 12/30/18 17:18) Penicillins Allergy (Verified 12/30/18 17:18) amoxicillin [Amoxicillin] Adverse Reaction (Verified 12/30/18 17:18) visual hallucinations erythromycin base [Erythromycin Base] Adverse Reaction (Verified 12/30/18 17:18) visual hallucinations Potassium Clavulanate * [From Augmentin] Adverse Reaction (Verified 12/30/18 17:18) visual hallucinations Review of Systems Constitutional: PRESENT: other - No fever or chills Gastrointestinal: PRESENT: other - Denies abdominal pain Physical Exam Vital Signs: Temp Pulse Resp BP Pulse Ox 98.0 F 88 20 128/54 H 100 05/24/19 16:07 05/24/19 16:07 05/24/19 16:07 05/24/19 16:07 05/24/19 16:07 Intake & Output 05/23/19 05/24/19 05/25/19 06:59 06:59 06:59 Intake Total 1400 2120 2086 Output Total 1375 700 325 Balance 25 1420 1761 Weight 76.1 kg 77.8 kg General appearance: PRESENT: no acute distress Head exam: PRESENT: atraumatic Eye exam: PRESENT: conjunctiva pink Mouth exam: PRESENT: dry mucosa Neck exam: PRESENT: other - No tracheal deviation Respiratory exam: PRESENT: clear to auscultation jeff Cardiovascular exam: PRESENT: RRR Pulses: PRESENT: normal radial pulses Vascular exam: PRESENT: normal capillary refill GI/Abdominal exam: PRESENT: soft - Nontender Rectal exam: PRESENT: deferred Psychiatric exam: PRESENT: other - Patient somewhat slow to respond Results Laboratory Results: 05/24/19 17:00 05/24/19 08:23 05/24/19 05/24/19 05/24/19 08:23 08:23 17:00 WBC 5.4 4.9 RBC 2.27 L 2.35 L Hgb 7.3 L 7.6 L Hct 21.9 L 22.7 L MCV 96 97 MCH 32.2 32.3 MCHC 33.4 33.3 RDW 16.5 H 16.9 H Plt Count 152 145 L Seg Neutrophils % 85.0 H Sodium 140.5 Potassium 3.5 L Chloride 105 Carbon Dioxide 33 H Anion Gap 3 L BUN 24 H Creatinine 1.61 H Est GFR ( Amer) 38 L Glucose 140 H Calcium 9.3 05/20/19 05/20/19 16:34 16:34 Creatine Kinase < 20 L CK-MB (CK-2) 0.59 Troponin I 0.024 Impressions: Chest CT 05/20/19 17:15 IMPRESSION: Right hilar scarring. Findings are similar to the prior study. No new lung consolidations or nodules. Abdomen/Pelvis CT 05/22/19 12:14 IMPRESSION: Grossly stable CT abdomen and pelvis. No acute findings. Head CT 05/23/19 12:23 IMPRESSION: CHRONIC CHANGES OF ATROPHY AND MICROVASCULAR ISCHEMIA. NO ACUTE PROCESS. EVIDENCE OF ACUTE STROKE: NO. Chest X-Ray 05/24/19 13:03 IMPRESSION: NO ACUTE RADIOGRAPHIC FINDING IN THE CHEST. Assessment & Plan - Diagnosis (1) Benign pneumobilia Is this a current diagnosis for this admission?: Yes - Time Time Spent: 30 to 50 Minutes - Plan Summary Plan Summary: 73-year-old female with history of lung and breast cancer with elevated serum calcium admitted for change of mental status. Her mental status appears to be improving. However somehow a CT scan of the abdomen was ordered on 05/22/2019 which showed extensive pneumobilia. This was compared to the CAT scan done on 09/17/2018 which essentially was the same findings. Since patient is asymptomatic as far as the new mobility is concerned this appears to be more of benign findings. This may be due to incompetent ampulla versus postoperative change. Plans: Since the pneumobilia is asymptomatic at this time, no treatment is indicated.
[2019-05-24] MEDS: FAMOTIDINE 20 MG TABLET PO SCH (21:27)
[2019-05-24] MEDS: ACETAMINOPHEN 325 MG TABLET PO PRN (22:45)
[2019-05-25 03:58] LABS: HEMATOCRIT 21.4 % (36.0-47.0); MEAN CORPUSCULAR HEMOGLOBIN 31.6 pg (27.0-33.4); MEAN CORPUSCULAR HGB CONC 32.8 g/dL (32.0-36.0); MEAN CORPUSCULAR VOLUME 97 fl (80-97); PLATELET COUNT 154 10^3/uL (150-450); RED BLOOD COUNT 2.22 10^6/uL (3.72-5.28); RED CELL DISTRIBUTION WIDTH 16.5 % (11.5-14.0); WHITE BLOOD COUNT 5.5 10^3/uL (4.0-10.5)
[2019-05-25 04:16] LABS: BLOOD UREA NITROGEN 21 mg/dL (7-20); CALCIUM 8.6 mg/dL (8.4-10.2); CARBON DIOXIDE 28 mmol/L (22-30); CHLORIDE 109 mmol/L (98-107); GLUCOSE 110 mg/dL (75-110); POTASSIUM 3.4 mmol/L (3.6-5.0)
[2019-05-25 04:30] LABS: ANION GAP 4 (5-19)
[2019-05-25] MEDS: HEPARIN SOD (PORCINE) 5,000 UNIT/ML 1 ML VIAL SUBCUT SCH ×3 (05:24→21:41)
[2019-05-25] MEDS: NORMAL SALINE 1000 ML 1,000 ML IV PRN ×2 (07:32→18:49)
[2019-05-25 08:45] LABS: ABSOLUTE RETICS # 0.022 10^6/uL (0.028-0.122); RETICULOCYTE COUNT (AUTO) 0.99 % (0.66-2.85)
[2019-05-25] MEDS: BUDESONIDE NEB 0.5 MG/2 ML AMPUL NEB SCH (08:47)
[2019-05-25] MEDS: IPRATROPIUM BROMIDE 0.02% NEB 0.5 MG/2.5 ML AMPUL NEB SCH (08:47)
[2019-05-25] MEDS: LEVALBUTEROL HCL NEB 1.25 MG/3 ML AMPUL NEB SCH (08:49)
[2019-05-25 09:07] LABS: IRON(TIBC) 68.5 ug/dL (37-170)
[2019-05-25] MEDS: FLUTICASONE/VILANTEROL 200-25 MCG/DOSE IH SCH (09:34)
[2019-05-25] MEDS: METHYLPREDNISOLONE INJ 40 MG/1 ML SDV IV SCH (09:34)
[2019-05-25] MEDS: CEFEPIME 1 GM/D5W RTU 1 GM/50 ML RTUPB IV SCH (09:34)
[2019-05-25] MEDS: DOCUSATE SODIUM 100 MG CAPSULE PO SCH (09:34)
[2019-05-25 10:23] LABS: FOLATE > 20.00 ng/mL (>2.76)
--- NOTE | 2019-05-25 11:47 | PDOC PROGRESS REPORT ---
Subjective Progress Note for:: 05/25/19 Subjective:: Patient states that she is feeling OK, but remains cold. Nurses report that 1 unit pRBCs has been ordered for her anemia. No new concerns today. ROS: patient denies dyspnea or constipation Reason For Visit: HYPERCALCEMIA,ACUTE METABOLIC ENCEPHALOPATHY Physical Exam Vital Signs: Temp Pulse Resp BP Pulse Ox 97.8 F 91 18 142/67 H 98 05/25/19 11:28 05/25/19 11:28 05/25/19 11:28 05/25/19 11:28 05/25/19 11:28 Intake & Output 05/24/19 05/25/19 05/26/19 06:59 06:59 06:59 Intake Total 2120 4706 50 Output Total 700 620 Balance 1420 4086 50 Weight 77.8 kg 81.1 kg Head exam: PRESENT: normocephalic Respiratory exam: PRESENT: unlabored Neurological exam: PRESENT: other - Patient is talkative, but remains quite confused. Results Laboratory Results: 05/25/19 03:33 05/25/19 03:33 05/24/19 05/24/19 05/25/19 08:23 17:00 03:33 WBC 4.9 5.5 RBC 2.35 L 2.22 L Hgb 7.6 L 7.0 L Hct 22.7 L 21.4 L MCV 97 97 MCH 32.3 31.6 MCHC 33.3 32.8 RDW 16.9 H 16.5 H Plt Count 145 L 154 Retic Count (auto) Sodium 140.5 Potassium 3.5 L Chloride 105 Carbon Dioxide 33 H Anion Gap 3 L BUN 24 H Creatinine 1.61 H Est GFR ( Amer) 38 L Glucose 140 H Calcium 9.3 Iron TIBC % Saturation Ferritin Vitamin B12 Folate Blood Type Antibody Screen 05/25/19 05/25/19 05/25/19 03:33 03:33 03:33 WBC RBC Hgb Hct MCV MCH MCHC RDW Plt Count Retic Count (auto) 0.99 Sodium 140.9 Potassium 3.4 L Chloride 109 H Carbon Dioxide 28 Anion Gap 4 L BUN 21 H Creatinine 1.51 H Est GFR ( Amer) 41 L Glucose 110 Calcium 8.6 Iron 68.5 TIBC 205 L % Saturation 33 Ferritin 145.00 Vitamin B12 590.0 Folate > 20.00 Blood Type Antibody Screen 05/25/19 09:04 WBC RBC Hgb Hct MCV MCH MCHC RDW Plt Count Retic Count (auto) Sodium Potassium Chloride Carbon Dioxide Anion Gap BUN Creatinine Est GFR ( Amer) Glucose Calcium Iron TIBC % Saturation Ferritin Vitamin B12 Folate Blood Type O POSITIVE Antibody Screen NEGATIVE 05/20/19 05/20/19 16:34 16:34 Creatine Kinase < 20 L CK-MB (CK-2) 0.59 Troponin I 0.024 Impressions: Chest CT 05/20/19 17:15 IMPRESSION: Right hilar scarring. Findings are similar to the prior study. No new lung consolidations or nodules. Abdomen/Pelvis CT 05/22/19 12:14 IMPRESSION: Grossly stable CT abdomen and pelvis. No acute findings. Head CT 05/23/19 12:23 IMPRESSION: CHRONIC CHANGES OF ATROPHY AND MICROVASCULAR ISCHEMIA. NO ACUTE PROCESS. EVIDENCE OF ACUTE STROKE: NO. Chest X-Ray 05/24/19 13:03 IMPRESSION: NO ACUTE RADIOGRAPHIC FINDING IN THE CHEST. Assessment & Plan - Diagnosis (1) Hypercalcemia Is this a current diagnosis for this admission?: Yes Plan: Now resolved. (2) ARF (acute renal failure) Is this a current diagnosis for this admission?: Yes Plan: Cr has remained stable. (3) Acute delirium Is this a current diagnosis for this admission?: Yes (4) Anemia Qualifiers: Anemia type: unspecified type Qualified Code(s): D64.9 - Anemia, unspecified Is this a current diagnosis for this admission?: Yes Plan: Agree with blood transfusions as needed. She also meets criteria for EPO injections due to chronic renal failure. - Time Time Spent with patient: Less than 15 minutes - Plan Summary Plan Summary: I will sign off at this point. No evidence of cancer causing her hypercalcemia. Continue erythropetin and blood transfusions as needed. Please call me with any new concerns.
--- NOTE | 2019-05-25 13:45 | PDOC PROGRESS REPORT ---
Subjective Progress Note for:: 05/25/19 Subjective:: This is a 73-year-old past medical history of dementia, COPD and remote history of lung cancer who was brought in due to lethargy and confusion. Patient was noted to have significant hypercalcemia and was also found to be in acute renal failure. She was started on IV fluids. 05/21: Upon encounter, she appears comfortable and appears her mentation has improved. She is able to tell me her name, she knows that she is in the hospital and she is able to tell me that it is 2018 although she thinks it is October. She denies chest pain or shortness of breath. 05/22: She had an episode of transient confusion and restlessness last night. Upon encounter this morning, she is more conversant. She is oriented to person and place. She denies chest pain or shortness of breath. 05/23: Patient is very lethargic upon encounter this morning. She moans to painful stimulus. No fever. She apparently was unable to get IV fluids last night as she lost her IV access and was unable to get a PICC line. 05/24: No acute event overnight. She is off BiPAP. Saturating well on 2 L nasal cannula. Upon encounter this morning, patient appears to be back on her baseline. She is awake and comfortable. She is conversant and well oriented to person and place. She does think it is January 2019. She denies chest pain or other acute complaints. 05/25: No acute event overnight. She appears to be at her baseline and is very much awake, conversant and coherent this morning. She denies acute complaints and is wondering if she can go home today. Her hemoglobin dropped to 7.0. No gross clinical signs of bleeding. Will order for a unit of packed RBC and will check an occult blood. Reason For Visit: HYPERCALCEMIA,ACUTE METABOLIC ENCEPHALOPATHY Physical Exam Vital Signs: Temp Pulse Resp BP Pulse Ox 97.8 F 91 18 142/67 H 98 05/25/19 11:28 05/25/19 11:28 05/25/19 11:28 05/25/19 11:28 05/25/19 11:28 Intake & Output 05/24/19 05/25/19 05/26/19 06:59 06:59 06:59 Intake Total 2120 4706 50 Output Total 700 620 Balance 1420 4086 50 Weight 171 lb 8.314 oz 178 lb 12.718 oz General appearance: PRESENT: no acute distress, well-developed, well-nourished Head exam: PRESENT: atraumatic, normocephalic Eye exam: PRESENT: conjunctiva pink, EOMI, PERRLA. ABSENT: scleral icterus Ear exam: PRESENT: normal external ear exam Mouth exam: PRESENT: moist, tongue midline Neck exam: ABSENT: carotid bruit, JVD, lymphadenopathy, thyromegaly Respiratory exam: PRESENT: rhonchi, wheezes. ABSENT: rales Cardiovascular exam: PRESENT: RRR. ABSENT: diastolic murmur, rubs, systolic murmur Pulses: PRESENT: normal dorsalis pedis pul GI/Abdominal exam: PRESENT: normal bowel sounds, soft. ABSENT: distended, guarding, mass, organolmegaly, rebound, tenderness Rectal exam: PRESENT: deferred Neurological exam: PRESENT: alert, awake, oriented to person, oriented to place, oriented to time, CN II-XII grossly intact. ABSENT: motor sensory deficit Results Laboratory Results: 05/25/19 03:33 05/25/19 03:33 05/24/19 05/24/19 05/25/19 08:23 17:00 03:33 WBC 4.9 5.5 RBC 2.35 L 2.22 L Hgb 7.6 L 7.0 L Hct 22.7 L 21.4 L MCV 97 97 MCH 32.3 31.6 MCHC 33.3 32.8 RDW 16.9 H 16.5 H Plt Count 145 L 154 Retic Count (auto) Sodium 140.5 Potassium 3.5 L Chloride 105 Carbon Dioxide 33 H Anion Gap 3 L BUN 24 H Creatinine 1.61 H Est GFR ( Amer) 38 L Glucose 140 H Calcium 9.3 Iron TIBC % Saturation Ferritin Vitamin B12 Folate Blood Type Antibody Screen 05/25/19 05/25/19 05/25/19 03:33 03:33 03:33 WBC RBC Hgb Hct MCV MCH MCHC RDW Plt Count Retic Count (auto) 0.99 Sodium 140.9 Potassium 3.4 L Chloride 109 H Carbon Dioxide 28 Anion Gap 4 L BUN 21 H Creatinine 1.51 H Est GFR ( Amer) 41 L Glucose 110 Calcium 8.6 Iron 68.5 TIBC 205 L % Saturation 33 Ferritin 145.00 Vitamin B12 590.0 Folate > 20.00 Blood Type Antibody Screen 05/25/19 09:04 WBC RBC Hgb Hct MCV MCH MCHC RDW Plt Count Retic Count (auto) Sodium Potassium Chloride Carbon Dioxide Anion Gap BUN Creatinine Est GFR ( Amer) Glucose Calcium Iron TIBC % Saturation Ferritin Vitamin B12 Folate Blood Type O POSITIVE Antibody Screen NEGATIVE 05/20/19 05/20/19 16:34 16:34 Creatine Kinase < 20 L CK-MB (CK-2) 0.59 Troponin I 0.024 Impressions: Chest CT 05/20/19 17:15 IMPRESSION: Right hilar scarring. Findings are similar to the prior study. No new lung consolidations or nodules. Abdomen/Pelvis CT 05/22/19 12:14 IMPRESSION: Grossly stable CT abdomen and pelvis. No acute findings. Head CT 05/23/19 12:23 IMPRESSION: CHRONIC CHANGES OF ATROPHY AND MICROVASCULAR ISCHEMIA. NO ACUTE PROCESS. EVIDENCE OF ACUTE STROKE: NO. Chest X-Ray 05/24/19 13:03 IMPRESSION: NO ACUTE RADIOGRAPHIC FINDING IN THE CHEST. Assessment and Plan - Diagnosis (1) Acute metabolic encephalopathy Is this a current diagnosis for this admission?: Yes Plan: 05/22: Improving. Likely related to acute renal failure and hypercalcemia. 05/23: Patient is somnolent upon encounter this morning. Stat ABG and CT brain. 05/24: Resolving. 05/25: Resolved. Now at her baseline mentation. (2) ARF (acute renal failure) Is this a current diagnosis for this admission?: Yes Plan: 05/21: Creatinine has slightly improved today with IV fluids. Decrease IV fluids from 160 cc/h to 100 cc/h. 05/22: Creatinine has slightly trended up today (1.6->1.4->1.7) after decreasing IV fluids yesterday. Granddaughter is at the bedside and she reports that patient did have poor oral intake in the past 3 days. Will increase IV fluids to 125 cc/h. 05/23: Crea up at 1.8. She apparently was unable to get IV fluids last night as she lost her IV access and was unable to get a PICC line. 05/24: Slightly improved. Creatinine is down to 1.6 today. 05/25: Continue to improve with IV fluids. Crea at 1.5. (3) Hypercalcemia Is this a current diagnosis for this admission?: Yes Plan: Improving. 05/21: Hypercalcemia is likely related more to acute renal failure and possible dehydration. Discontinue calcitonin. Continue IV fluids. Will check a PTH level as well. 05/22: PTH is low. Also sent for PTHrP and vitamin D levels. 05/24: Resolved. Likely related to volume depletion/dehydration. (4) Hypokalemia Is this a current diagnosis for this admission?: Yes Plan: Repleted. (5) Acute on chronic anemia Is this a current diagnosis for this admission?: Yes Plan: Her hemoglobin dropped to 7.0. No gross clinical signs of bleeding. Will order for a unit of packed RBC and will check an occult blood. - Plan Summary Summary: Patient is admitted to [facility] for evaluation and treatment. A consultation will be obtained with hematology/oncology due to her significant hypercalcemia and her history of both breast and lung cancer. She will be given supportive and symptomatic cares. She will receive IV fluids and her hypercalcemia will be treated with Miacalcin and Zometa. Patient will have every 4 hours neuro checks and ongoing clinical evaluation. Daily metabolic profiles, magnesium levels and CBCs will be obtained. She will be continued on her usual medications for control of her hypertension, coronary artery disease, hypothyroidism and diabetes. Her vital signs will be assessed every 4 hours patient will be in a telemetry monitored bed. Before meals and at bedtime Accu-Cheks will be ob tained with sliding scale insulin for treatment of hyperglycemia and a hypoglycemic protocol in place. A thyroid profile will also be obtained.
[2019-05-25] MEDS: IPRATROPIUM/ALBUTEROL 0.5-2.5 MG/3 ML AMPUL NEB SCH ×2 (14:37→20:05)
[2019-05-25 15:16] LABS: HEMATOCRIT 28.9 % (36.0-47.0); MEAN CORPUSCULAR HEMOGLOBIN 32.4 pg (27.0-33.4); MEAN CORPUSCULAR HGB CONC 33.9 g/dL (32.0-36.0); MEAN CORPUSCULAR VOLUME 96 fl (80-97); PLATELET COUNT 158 10^3/uL (150-450); RED BLOOD COUNT 3.02 10^6/uL (3.72-5.28); RED CELL DISTRIBUTION WIDTH 15.7 % (11.5-14.0); WHITE BLOOD COUNT 6.7 10^3/uL (4.0-10.5)
[2019-05-25 15:19] LABS: HEMOGLOBIN 9.8 g/dL (12.0-15.5)
[2019-05-25 15:46] LABS: ABSOLUTE LYMPHOCYTES# (MANUAL) 0.3 10^3/uL (0.5-4.7); ABSOLUTE MONOCYTES # (MANUAL) 0.3 10^3/uL (0.1-1.4); BAND NEUTROPHILS % (MANUAL) 1 % (3-5); BASOPHILS % (MANUAL) 0 % (0-2); EOSINOPHILS % (MANUAL) 1 % (0-6); LYMPHOCYTES % (MANUAL) 5 % (13-45); MONOCYTES % (MANUAL) 4 % (3-13); SEGMENTED NEUTROPHILS % (MAN) 89 % (42-78); TOTAL CELLS COUNTED 100
[2019-05-25 15:47] LABS: ANISOCYTOSIS SLIGHT; PLATELET COMMENT ADEQUATE
[2019-05-25] MEDS: INSULIN REG, HUMAN 100 UNIT/ML 3 ML VIAL (PYX) SUBCUT PRN ×2 (17:42→23:09)
[2019-05-25] MEDS: FAMOTIDINE 20 MG TABLET PO SCH (21:41)
[2019-05-26] MEDS: IPRATROPIUM/ALBUTEROL 0.5-2.5 MG/3 ML AMPUL NEB SCH ×4 (02:12→20:27)
[2019-05-26] MEDS: HEPARIN SOD (PORCINE) 5,000 UNIT/ML 1 ML VIAL SUBCUT SCH ×3 (05:22→21:24)
[2019-05-26] MEDS: ACETAMINOPHEN 325 MG TABLET PO PRN (06:01)
[2019-05-26] MEDS: DOCUSATE SODIUM 100 MG CAPSULE PO SCH (09:18)
[2019-05-26] MEDS: METHYLPREDNISOLONE INJ 40 MG/1 ML SDV IV SCH (09:18)
[2019-05-26] MEDS: CEFEPIME 1 GM/D5W RTU 1 GM/50 ML RTUPB IV SCH (09:18)
[2019-05-26] MEDS: FLUTICASONE/VILANTEROL 200-25 MCG/DOSE IH SCH (09:18)
[2019-05-26] MEDS: PREDNISONE 10 MG TABLET PO SCH (09:23)
[2019-05-26 09:48] LABS: HEMATOCRIT 29.7 % (36.0-47.0); HEMOGLOBIN 10.1 g/dL (12.0-15.5); MEAN CORPUSCULAR HEMOGLOBIN 32.1 pg (27.0-33.4); MEAN CORPUSCULAR VOLUME 94 fl (80-97); PLATELET COUNT 179 10^3/uL (150-450); RED BLOOD COUNT 3.16 10^6/uL (3.72-5.28); RED CELL DISTRIBUTION WIDTH 16.3 % (11.5-14.0); WHITE BLOOD COUNT 6.8 10^3/uL (4.0-10.5)
[2019-05-26 09:49] LABS: BLOOD UREA NITROGEN 17 mg/dL (7-20); CALCIUM 8.5 mg/dL (8.4-10.2); CARBON DIOXIDE 30 mmol/L (22-30); CHLORIDE 112 mmol/L (98-107); GLUCOSE 112 mg/dL (75-110)
[2019-05-26 10:00] LABS: ABSOLUTE MONOCYTES # (MANUAL) 0.3 10^3/uL (0.1-1.4); BASOPHILS % (MANUAL) 0 % (0-2); EOSINOPHILS % (MANUAL) 2 % (0-6); LYMPHOCYTES % (MANUAL) 15 % (13-45); MONOCYTES % (MANUAL) 5 % (3-13); SEGMENTED NEUTROPHILS % (MAN) 78 % (42-78); TOTAL CELLS COUNTED 100
[2019-05-26] MEDS ORDERED: BISACODYL 10 MG SUPP.RECT PR ONE (10:00)
[2019-05-26 10:01] LABS: ANISOCYTOSIS 1+; OVALOCYTES SLIGHT; PLATELET COMMENT ADEQUATE
[2019-05-26 10:06] LABS: ANION GAP 4 (5-19)
[2019-05-26 10:08] LABS: POTASSIUM 2.8 mmol/L (3.6-5.0)
[2019-05-26] MEDS: POTASSIUM CHLORIDE 10 MEQ CAPSULE.ER PO SCH ×2 (12:03→21:54)
[2019-05-26] MEDS: POTASSI CL 20 MEQ/50 ML RIDER 20 MEQ/50 ML RTUPB IV SCH ×2 (12:05→13:23)
[2019-05-26] MEDS: INSULIN REG, HUMAN 100 UNIT/ML 3 ML VIAL (PYX) SUBCUT PRN ×2 (12:06→18:17)
--- NOTE | 2019-05-26 12:57 | PDOC PROGRESS REPORT ---
Subjective Progress Note for:: 05/26/19 Subjective:: This is a 73-year-old past medical history of dementia, COPD and remote history of lung cancer who was brought in due to lethargy and confusion. Patient was noted to have significant hypercalcemia and was also found to be in acute renal failure. She was started on IV fluids. 05/21: Upon encounter, she appears comfortable and appears her mentation has improved. She is able to tell me her name, she knows that she is in the hospital and she is able to tell me that it is 2018 although she thinks it is October. She denies chest pain or shortness of breath. 05/22: She had an episode of transient confusion and restlessness last night. Upon encounter this morning, she is more conversant. She is oriented to person and place. She denies chest pain or shortness of breath. 05/23: Patient is very lethargic upon encounter this morning. She moans to painful stimulus. No fever. She apparently was unable to get IV fluids last night as she lost her IV access and was unable to get a PICC line. 05/24: She is off BiPAP. Saturating well on 2 L nasal cannula. Upon encounter this morning, patient appears to be back on her baseline. She is awake and comfortable. She is conversant and well oriented to person and place. She does think it is January 2019. She denies chest pain or other acute complaints. 05/25: She appears to be at her baseline and is very much awake, conversant and coherent this morning. She denies acute complaints and is wondering if she can go home today. Her hemoglobin dropped to 7.0. No gross clinical signs of bleeding. Will order for a unit of packed RBC and will check an occult blood. 05/26: No acute event overnight. She continues to improve. She appears to be at her baseline mentation. Hemoglobin is remained stable. No clinical signs and symptoms of bleeding. Serum potassium came back severely low at 2.8. Creatinine continue to improve. Reason For Visit: HYPERCALCEMIA,ACUTE METABOLIC ENCEPHALOPATHY Physical Exam Vital Signs: Temp Pulse Resp BP Pulse Ox 98.3 F 103 H 24 H 126/58 H 100 05/26/19 11:13 05/26/19 11:13 05/26/19 11:13 05/26/19 11:13 05/26/19 11:13 Intake & Output 05/25/19 05/26/19 05/27/19 06:59 06:59 06:59 Intake Total 4706 2800 50 Output Total 620 3625 Balance 4086 -825 50 Weight 178 lb 12.718 oz 179 lb 0.246 oz General appearance: PRESENT: no acute distress, well-developed, well-nourished Head exam: PRESENT: atraumatic, normocephalic Eye exam: PRESENT: conjunctiva pink, EOMI, PERRLA. ABSENT: scleral icterus Ear exam: PRESENT: normal external ear exam Mouth exam: PRESENT: moist, tongue midline Neck exam: ABSENT: carotid bruit, JVD, lymphadenopathy, thyromegaly Results Laboratory Results: 05/26/19 09:00 05/26/19 09:00 05/25/19 05/26/19 05/26/19 15:00 09:00 09:00 WBC 6.7 6.8 RBC 3.02 L 3.16 L Hgb 9.8 L D 10.1 L Hct 28.9 L 29.7 L MCV 96 94 MCH 32.4 32.1 MCHC 33.9 34.0 RDW 15.7 H 16.3 H Plt Count 158 179 Seg Neutrophils % Not Reportable Not Reportable Sodium 146.0 H Potassium 2.8 L* Chloride 112 H Carbon Dioxide 30 Anion Gap 4 L BUN 17 Creatinine 1.27 H Est GFR ( Amer) 50 L Glucose 112 H Calcium 8.5 Stool Occult Blood 05/26/19 11:57 WBC RBC Hgb Hct MCV MCH MCHC RDW Plt Count Seg Neutrophils % Sodium Potassium Chloride Carbon Dioxide Anion Gap BUN Creatinine Est GFR ( Amer) Glucose Calcium Stool Occult Blood NEGATIVE 05/20/19 05/20/19 16:34 16:34 Creatine Kinase < 20 L CK-MB (CK-2) 0.59 Troponin I 0.024 Impressions: Chest CT 05/20/19 17:15 IMPRESSION: Right hilar scarring. Findings are similar to the prior study. No new lung consolidations or nodules. Abdomen/Pelvis CT 05/22/19 12:14 IMPRESSION: Grossly stable CT abdomen and pelvis. No acute findings. Head CT 05/23/19 12:23 IMPRESSION: CHRONIC CHANGES OF ATROPHY AND MICROVASCULAR ISCHEMIA. NO ACUTE PROCESS. EVIDENCE OF ACUTE STROKE: NO. Chest X-Ray 05/24/19 13:03 IMPRESSION: NO ACUTE RADIOGRAPHIC FINDING IN THE CHEST. Assessment and Plan - Diagnosis (1) Acute metabolic encephalopathy Is this a current diagnosis for this admission?: Yes Plan: 05/22: Improving. Likely related to acute renal failure and hypercalcemia. 05/23: Patient is somnolent upon encounter this morning. Stat ABG and CT brain. 05/24: Resolving. 05/25: Resolved. Now at her baseline mentation. (2) ARF (acute renal failure) Is this a current diagnosis for this admission?: Yes Plan: 05/21: Creatinine has slightly improved today with IV fluids. Decrease IV flu ids from 160 cc/h to 100 cc/h. 05/22: Creatinine has slightly trended up today (1.6->1.4->1.7) after decreasing IV fluids yesterday. Granddaughter is at the bedside and she reports that patient did have poor oral intake in the past 3 days. Will increase IV fluids to 125 cc/h. 05/23: Crea up at 1.8. She apparently was unable to get IV fluids last night as she lost her IV access and was unable to get a PICC line. 05/24: Slightly improved. Creatinine is down to 1.6 today. 05/25: Continue to improve with IV fluids. Crea at 1.5. 05/26: Crea close to baseline and now down to 1.2. (3) Hypercalcemia Is this a current diagnosis for this admission?: Yes Plan: Improving. 05/21: Hypercalcemia is likely related more to acute renal failure and possible dehydration. Discontinue calcitonin. Continue IV fluids. Will check a PTH level as well. 05/22: PTH is low. Also sent for PTHrP and vitamin D levels. 05/24: Resolved. Likely related to volume depletion/dehydration. (4) Hypokalemia Is this a current diagnosis for this admission?: Yes Plan: 05/26: Low at 2.8. Will replace with IV and start scheduled PO KCl. She has started to increase her oral intake now. (5) Acute on chronic anemia Is this a current diagnosis for this admission?: Yes Plan: Her hemoglobin dropped to 7.0. No gross clinical signs of bleeding. Will order for a unit of packed RBC and will check an occult blood. 05/26: Hb improved to 9.8. FOBT pending. No clinical signs or symptoms of bleeding. May be hemodilution related to IV hydration. - Plan Summary Summary: Patient is admitted to [facility] for evaluation and treatment. A consultation will be obtained with hematology/oncology due to her significant hypercalcemia and her history of both breast and lung cancer. She will be given supportive and symptomatic cares. She will receive IV fluids and her hypercalcemia will be treated with Miacalcin and Zometa. Patient will have every 4 hours neuro checks and ongoing clinical evaluation. Daily metabolic profiles, magnesium levels and CBCs will be obtained. She will be continued on her usual medications for control of her hypertension, coronary artery disease, hypothyroidism and diabetes. Her vital signs will be assessed every 4 hours patient will be in a telemetry monitored bed. Before meals and at bedtime Accu-Cheks will be obtained with sliding scale insulin for treatment of hyperglycemia and a hypoglycemic protocol in place. A thyroid profile will also be obtained.
[2019-05-26 19:56] LABS: C DIFFICILE GDH NEGATIVE (NEGATIVE)
[2019-05-26] MEDS: FAMOTIDINE 20 MG TABLET PO SCH (21:54)
[2019-05-27] MEDS: ACETAMINOPHEN 325 MG TABLET PO PRN (00:28)
[2019-05-27] MEDS: IPRATROPIUM/ALBUTEROL 0.5-2.5 MG/3 ML AMPUL NEB SCH ×4 (02:15→19:51)
[2019-05-27] MEDS: HEPARIN SOD (PORCINE) 5,000 UNIT/ML 1 ML VIAL SUBCUT SCH ×3 (05:54→21:28)
[2019-05-27 08:05] LABS: ARTERIAL BLOOD BASE EXCESS 3.1 mmol/L; ARTERIAL BLOOD FIO2 2L; ARTERIAL BLOOD H2CO3 1.64 mmol/L (1.05-1.35); ARTERIAL BLOOD HCO3 29.4 mmol/L (20-24); ARTERIAL BLOOD O2 SATURATION 95.7 % (94-98); ARTERIAL BLOOD PCO2 54.5 mmHg (35-45); ARTERIAL BLOOD PH 7.35 (7.35-7.45); ARTERIAL BLOOD PO2 84.3 mmHg (80-100); ARTERIAL BLOOD TOTAL CO2 31.1 mmol/L (21-25)
[2019-05-27] MEDS: DOCUSATE SODIUM 100 MG CAPSULE PO SCH (10:40)
[2019-05-27] MEDS: PREDNISONE 10 MG TABLET PO SCH (11:12)
[2019-05-27] MEDS: INSULIN REG, HUMAN 100 UNIT/ML 3 ML VIAL (PYX) SUBCUT SCH ×3 (11:53→21:33)
[2019-05-27] MEDS: CEFEPIME 1 GM/D5W RTU 1 GM/50 ML RTUPB IV SCH (11:54)
[2019-05-27] MEDS: POTASSIUM CHLORIDE 10 MEQ CAPSULE.ER PO SCH ×2 (11:54→21:28)
[2019-05-27] MEDS: METHYLPREDNISOLONE INJ 40 MG/1 ML SDV IV SCH (11:54)
[2019-05-27] MEDS: FLUTICASONE/VILANTEROL 200-25 MCG/DOSE IH SCH (12:36)
--- NOTE | 2019-05-27 13:01 | PDOC PROGRESS REPORT ---
Subjective Progress Note for:: 05/27/19 Subjective:: This is a 73-year-old past medical history of dementia, COPD and remote history of lung cancer who was brought in due to lethargy and confusion. Patient was noted to have significant hypercalcemia and was also found to be in acute renal failure. She was started on IV fluids. 05/21: Upon encounter, she appears comfortable and appears her mentation has improved. She is able to tell me her name, she knows that she is in the hospital and she is able to tell me that it is 2018 although she thinks it is October. She denies chest pain or shortness of breath. 05/22: She had an episode of transient confusion and restlessness last night. Upon encounter this morning, she is more conversant. She is oriented to person and place. She denies chest pain or shortness of breath. 05/23: Patient is very lethargic upon encounter this morning. She moans to painful stimulus. No fever. She apparently was unable to get IV fluids last night as she lost her IV access and was unable to get a PICC line. 05/24: She is off BiPAP. Saturating well on 2 L nasal cannula. Upon encounter this morning, patient appears to be back on her baseline. She is awake and comfortable. She is conversant and well oriented to person and place. She does think it is January 2019. She denies chest pain or other acute complaints. 05/25: She appears to be at her baseline and is very much awake, conversant and coherent this morning. She denies acute complaints and is wondering if she can go home today. Her hemoglobin dropped to 7.0. No gross clinical signs of bleeding. Will order for a unit of packed RBC and will check an occult blood. 05/26: No acute event overnight. She continues to improve. She appears to be at her baseline mentation. Hemoglobin is remained stable. No clinical signs and symptoms of bleeding. Serum potassium came back severely low at 2.8. Creatinine continue to improve. 05/27: Upon encounter this morning, patient is somnolent. She only groans to painful stimulus. Per RN, patient was awake most of the night last night. Stat ABG and BMP pending. I suspect this is related to reversal of her sleep cycle on top of early dementia. Reason For Visit: HYPERCALCEMIA,ACUTE METABOLIC ENCEPHALOPATHY Physical Exam Vital Signs: Temp Pulse Resp BP Pulse Ox 98.2 F 97 19 136/67 H 100 05/27/19 08:56 05/27/19 08:56 05/27/19 10:04 05/27/19 08:56 05/27/19 10:04 Intake & Output 05/26/19 05/27/19 05/28/19 06:59 06:59 06:59 Intake Total 2800 1491 Output Total 3625 1550 Balance -825 -59 Weight 179 lb 0.246 oz 175 lb 11.335 oz General appearance: PRESENT: no acute distress Head exam: PRESENT: atraumatic, normocephalic Eye exam: PRESENT: conjunctiva pink, EOMI, PERRLA. ABSENT: scleral icterus Ear exam: PRESENT: normal external ear exam Mouth exam: PRESENT: moist, tongue midline Neck exam: ABSENT: carotid bruit, JVD, lymphadenopathy, thyromegaly Respiratory exam: PRESENT: rhonchi. ABSENT: rales, wheezes Cardiovascular exam: PRESENT: RRR. ABSENT: diastolic murmur, rubs, systolic murmur Pulses: PRESENT: normal dorsalis pedis pul GI/Abdominal exam: PRESENT: normal bowel sounds, soft. ABSENT: distended, guarding, mass, organolmegaly, rebound, tenderness Rectal exam: PRESENT: deferred Neurological exam: PRESENT: altered. ABSENT: motor sensory deficit Results Laboratory Results: 05/26/19 09:00 05/26/19 09:00 05/26/19 05/27/19 11:57 07:42 Carbonic Acid 1.64 H HCO3/H2CO3 Ratio 17:1 ABG pH 7.35 ABG pCO2 54.5 H ABG pO2 84.3 ABG HCO3 29.4 H ABG O2 Saturation 95.7 ABG Base Excess 3.1 FiO2 2L Stool Occult Blood NEGATIVE 05/20/19 05/20/19 16:34 16:34 Creatine Kinase < 20 L CK-MB (CK-2) 0.59 Troponin I 0.024 Impressions: Chest CT 05/20/19 17:15 IMPRESSION: Right hilar scarring. Findings are similar to the prior study. No new lung consolidations or nodules. Abdomen/Pelvis CT 05/22/19 12:14 IMPRESSION: Grossly stable CT abdomen and pelvis. No acute findings. Head CT 05/23/19 12:23 IMPRESSION: CHRONIC CHANGES OF ATROPHY AND MICROVASCULAR ISCHEMIA. NO ACUTE PROCESS. EVIDENCE OF ACUTE STROKE: NO. Chest X-Ray 05/24/19 13:03 IMPRESSION: NO ACUTE RADIOGRAPHIC FINDING IN THE CHEST. Assessment and Plan - Diagnosis (1) Acute metabolic encephalopathy Is this a current diagnosis for this admission?: Yes Plan: 05/22: Improving. Likely related to acute renal failure and hypercalcemia. 05/23: Patient is somnolent upon encounter this morning. Stat ABG and CT brain. 05/24: Resolving. 05/25: Resolved. Now at her baseline mentation. 05/27: Upon encounter this morning, patient is somnolent. She only groans to painful stimulus. Per RN, patient was awake most of the night last night. Stat ABG and BMP pending. I suspect this is related to reversal of her sleep cycle on top of early dementia. (2) ARF (acute renal failure) Is this a current diagnosis for this admission?: Yes Plan: 05/21: Creatinine has slightly improved today with IV fluids. Decrease IV fluids from 160 cc/h to 100 cc/h. 05/22: Creatinine has slightly trended up today (1.6->1.4->1.7) after decreasing IV fluids yesterday. Granddaughter is at the bedside and she reports that patient did have poor oral intake in the past 3 days. Will increase IV fluids to 125 cc/h. 05/23: Crea up at 1.8. She apparently was unable to get IV fluids last night as she lost her IV access and was unable to get a PICC line. 05/24: Slightly improved. Creatinine is down to 1.6 today. 05/25: Continue to improve with IV fluids. Crea at 1.5. 05/26: Crea close to baseline and now down to 1.2. (3) Hypercalcemia Is this a current diagnosis for this admission?: Yes Plan: Improving. 05/21: Hypercalcemia is likely related more to acute renal failure and possible dehydration. Discontinue calcitonin. Continue IV fluids. Will check a PTH level as well. 05/22: PTH is low. Also sent for PTHrP and vitamin D levels. 05/24: Resolved. Likely related to volume depletion/dehydration. (4) Hypokalemia Is this a current diagnosis for this admission?: Yes Plan: 05/26: Low at 2.8. Will replace with IV and start scheduled PO KCl. She has started to increase her oral intake now. 05/27: Repeat Potassium pending. (5) Acute on chronic anemia Is this a current diagnosis for this admission?: Yes Plan: Her hemoglobin dropped to 7.0. No gross clinical signs of bleeding. Will order for a unit of packed RBC and will check an occult blood. 05/26: Hb improved to 9.8. FOBT pending. No clinical signs or symptoms of bleeding. May be hemodilution related to IV hydration. - Plan Summary Summary: Patient is admitted to [facility] for evaluation and treatment. A consultation will be obtained with hematology/oncology due to her significant hypercalcemia and her history of both breast and lung cancer. She will be given supportive and symptomatic cares. She will receive IV fluids and her hypercalcemia will be treated with Miacalcin and Zometa. Patient will have every 4 hours neuro checks and ongoing clinical evaluation. Daily metabolic profiles, magnesium levels and CBCs will be obtained. She will be continued on her usual medications for control of her hypertension, coronary artery disease, hypothyroidism and diabetes. Her vital signs will be assessed every 4 hours patient will be in a telemetry monitored bed. Before meals and at bedtime Accu-Cheks will be obtained with sliding scale insulin for treatment of hyperglycemia and a hypoglycemic protocol in place. A thyroid profile will also be obtained. - Time Time Spent with patient: 25-34 minutes
[2019-05-27 13:12] LABS: BLOOD UREA NITROGEN 15 mg/dL (7-20); CALCIUM 8.2 mg/dL (8.4-10.2); GLUCOSE 84 mg/dL (75-110); POTASSIUM 3.8 mmol/L (3.6-5.0)
[2019-05-27 13:17] LABS: CARBON DIOXIDE 31 mmol/L (22-30); CHLORIDE 113 mmol/L (98-107)
[2019-05-27 13:19] LABS: ANION GAP 2 (5-19)
[2019-05-27] MEDS: FAMOTIDINE 20 MG TABLET PO SCH (21:28)
[2019-05-28] MEDS: IPRATROPIUM/ALBUTEROL 0.5-2.5 MG/3 ML AMPUL NEB SCH ×4 (02:08→20:22)
[2019-05-28] MEDS: HEPARIN SOD (PORCINE) 5,000 UNIT/ML 1 ML VIAL SUBCUT SCH ×3 (05:04→22:03)
[2019-05-28] MEDS: INSULIN REG, HUMAN 100 UNIT/ML 3 ML VIAL (PYX) SUBCUT SCH ×4 (08:57→22:14)
--- NOTE | 2019-05-28 10:18 | PDOC PROGRESS REPORT ---
Subjective Progress Note for:: 05/28/19 Reason For Visit: HYPERCALCEMIA,ACUTE METABOLIC ENCEPHALOPATHY 05/28/2019 Patient admitted for the above diagnoses. She is sleepy but arouses to voice command. There is a note on her board saying that she is not safe to be out of bed to weakness Renal functions are improving. She does have an element of dementia which is obvious Physical Exam Vital Signs: Temp Pulse Resp BP Pulse Ox 98.0 F 95 19 160/59 H 100 05/28/19 08:17 05/28/19 08:19 05/28/19 08:19 05/28/19 08:17 05/28/19 08:19 Intake & Output 05/27/19 05/28/19 05/29/19 06:59 06:59 06:59 Intake Total 1491 286 Output Total 1550 1550 Balance -59 -1264 Weight 79.7 kg 78.4 kg General appearance: PRESENT: no acute distress Respiratory exam: PRESENT: rhonchi, other - Scattered, with cough Cardiovascular exam: PRESENT: RRR. ABSENT: diastolic murmur, rubs, systolic murmur Neurological exam: PRESENT: altered, other - Mildly lethargic and demented Psychiatric exam: PRESENT: flat affect Results Laboratory Results: 05/26/19 09:00 05/27/19 12:20 05/27/19 12:20 Sodium 145.7 H Potassium 3.8 Chloride 113 H Carbon Dioxide 31 H Anion Gap 2 L BUN 15 Creatinine 1.11 Est GFR ( Amer) 58 L Glucose 84 Calcium 8.2 L 05/20/19 05/20/19 16:34 16:34 Creatine Kinase < 20 L CK-MB (CK-2) 0.59 Troponin I 0.024 Impressions: Chest CT 05/20/19 17:15 IMPRESSION: Right hilar scarring. Findings are similar to the prior study. No new lung consolidations or nodules. Abdomen/Pelvis CT 05/22/19 12:14 IMPRESSION: Grossly stable CT abdomen and pelvis. No acute findings. Head CT 05/23/19 12:23 IMPRESSION: CHRONIC CHANGES OF ATROPHY AND MICROVASCULAR ISCHEMIA. NO ACUTE PROCESS. EVIDENCE OF ACUTE STROKE: NO. Chest X-Ray 05/24/19 13:03 IMPRESSION: NO ACUTE RADIOGRAPHIC FINDING IN THE CHEST. Assessment and Plan - Diagnosis (1) Acute metabolic encephalopathy Is this a current diagnosis for this admission?: Yes (2) Acute on chronic anemia Is this a current diagnosis for this admission?: Yes (3) Benign pneumobilia Is this a current diagnosis for this admission?: Yes (4) Lethargy Is this a current diagnosis for this admission?: Yes (5) Hypocalcemia Is this a current diagnosis for this admission?: Yes - Plan Summary Summary: Patient is admitted to [facility] for evaluation and treatment. A consultation will be obtained with hematology/oncology due to her significant hypercalcemia and her history of both breast and lung cancer. She will be given supportive and symptomatic cares. She will receive IV fluids and her hypercalcemia will be treated with Miacalcin and Zometa. Patient will have every 4 hours neuro checks and ongoing clinical evaluation. Daily metabolic profiles, magnesium levels and CBCs will be obtained. She will be continued on her usual medications for control of her hypertension, coronary artery disease, hypothyroidism and di abetes. Her vital signs will be assessed every 4 hours patient will be in a telemetry monitored bed. Before meals and at bedtime Accu-Cheks will be obtained with sliding scale insulin for treatment of hyperglycemia and a hypoglycemic protocol in place. A thyroid profile will also be obtained. 05/28/2019 Patient's vital signs appear stable. Blood pressures on average appear to be 135/80, although slightly up this morning at 160/59. She is afebrile O2 sat 100% on 2 L nasal cannula Patient CBC is normal Calcium yesterday was slightly low at 8.2 we will recheck this morning BUN and creatinine appears stable, potassium stable 3.8 Sputum culture grew out Pseudomonas, currently on Maxipime Continue same course. Patient does not appear to be medically stable to fly to [place] at this time - Time Time Spent with patient: 25-34 minutes
[2019-05-28] MEDS: CEFEPIME 1 GM/D5W RTU 1 GM/50 ML RTUPB IV SCH (11:01)
[2019-05-28] MEDS: METHYLPREDNISOLONE INJ 40 MG/1 ML SDV IV SCH (11:09)
[2019-05-28] MEDS: DOCUSATE SODIUM 100 MG CAPSULE PO SCH (11:11)
[2019-05-28] MEDS: POTASSIUM CHLORIDE 10 MEQ CAPSULE.ER PO SCH ×2 (11:11→22:03)
[2019-05-28 11:14] LABS: HEMATOCRIT 28.3 % (36.0-47.0); HEMOGLOBIN 9.5 g/dL (12.0-15.5); MEAN CORPUSCULAR HEMOGLOBIN 32.1 pg (27.0-33.4); MEAN CORPUSCULAR HGB CONC 33.6 g/dL (32.0-36.0); MEAN CORPUSCULAR VOLUME 95 fl (80-97); PLATELET COUNT 183 10^3/uL (150-450); RED BLOOD COUNT 2.97 10^6/uL (3.72-5.28); RED CELL DISTRIBUTION WIDTH 16.1 % (11.5-14.0); WHITE BLOOD COUNT 5.8 10^3/uL (4.0-10.5)
[2019-05-28 11:30] LABS: ALBUMIN 2.6 g/dL (3.5-5.0); BLOOD UREA NITROGEN 16 mg/dL (7-20); CALCIUM 8.1 mg/dL (8.4-10.2); CHLORIDE 111 mmol/L (98-107); GLUCOSE 88 mg/dL (75-110); POTASSIUM 3.5 mmol/L (3.6-5.0)
[2019-05-28] MEDS: FLUTICASONE/VILANTEROL 200-25 MCG/DOSE IH SCH (11:30)
[2019-05-28 11:35] LABS: CARBON DIOXIDE 33 mmol/L (22-30)
[2019-05-28 11:40] LABS: ANION GAP 1 (5-19)
[2019-05-28 11:46] LABS: ABSOLUTE LYMPHOCYTES# (MANUAL) 1.3 10^3/uL (0.5-4.7); ABSOLUTE MONOCYTES # (MANUAL) 0.4 10^3/uL (0.1-1.4); BAND NEUTROPHILS % (MANUAL) 1 % (3-5); BASOPHILS % (MANUAL) 0 % (0-2); EOSINOPHILS % (MANUAL) 2 % (0-6); LYMPHOCYTES % (MANUAL) 23 % (13-45); MONOCYTES % (MANUAL) 7 % (3-13); SEGMENTED NEUTROPHILS % (MAN) 67 % (42-78); TOTAL CELLS COUNTED 100
[2019-05-28 11:48] LABS: ANISOCYTOSIS 1+; OVALOCYTES SLIGHT; PLATELET COMMENT ADEQUATE
[2019-05-28] MEDS: FAMOTIDINE 20 MG TABLET PO SCH (22:03)
[2019-05-29] MEDS: IPRATROPIUM/ALBUTEROL 0.5-2.5 MG/3 ML AMPUL NEB SCH ×4 (02:26→20:39)
[2019-05-29] MEDS: HEPARIN SOD (PORCINE) 5,000 UNIT/ML 1 ML VIAL SUBCUT SCH ×3 (06:21→21:04)
[2019-05-29] MEDS: INSULIN REG, HUMAN 100 UNIT/ML 3 ML VIAL (PYX) SUBCUT SCH ×4 (08:44→21:05)
[2019-05-29] MEDS: DOCUSATE SODIUM 100 MG CAPSULE PO SCH (10:15)
[2019-05-29] MEDS: FLUTICASONE/VILANTEROL 200-25 MCG/DOSE IH SCH (10:15)
[2019-05-29] MEDS: POTASSIUM CHLORIDE 10 MEQ CAPSULE.ER PO SCH ×2 (10:15→21:03)
[2019-05-29] MEDS: METHYLPREDNISOLONE INJ 40 MG/1 ML SDV IV SCH (10:16)
[2019-05-29] MEDS: CEFEPIME 1 GM/D5W RTU 1 GM/50 ML RTUPB IV SCH (10:25)
--- NOTE | 2019-05-29 10:44 | PDOC PROGRESS REPORT ---
Subjective Progress Note for:: 05/29/19 Reason For Visit: HYPERCALCEMIA,ACUTE METABOLIC ENCEPHALOPATHY 73-year-old female admitted for altered mental status, hypercalcemia, dementia, acute renal failure Physical Exam Vital Signs: Temp Pulse Resp BP Pulse Ox 97.8 F 95 20 137/61 H 98 05/29/19 04:14 05/29/19 07:00 05/29/19 04:14 05/29/19 04:14 05/29/19 04:14 Intake & Output 05/28/19 05/29/19 05/30/19 06:59 06:59 06:59 Intake Total 286 1270 Output Total 1550 925 Balance -1264 345 Weight 78.4 kg 83.5 kg General appearance: PRESENT: no acute distress, other - She is much more alert today sitting up in bed smiling carrying on a normal conversation with. Is a dramatic improvement from yesterday when she was somnolent and hard to arouse Respiratory exam: PRESENT: clear to auscultation jeff, rhonchi. ABSENT: rales, wheezes Cardiovascular exam: PRESENT: RRR. ABSENT: diastolic murmur, rubs, systolic murmur Neurological exam: PRESENT: alert, awake, oriented to person, oriented to place, oriented to time, oriented to situation, CN II-XII grossly intact. ABSENT: motor sensory deficit Psychiatric exam: PRESENT: appropriate affect Results Laboratory Results: 05/28/19 10:50 05/28/19 10:50 05/28/19 05/28/19 10:50 10:50 WBC 5.8 RBC 2.97 L Hgb 9.5 L Hct 28.3 L MCV 95 MCH 32.1 MCHC 33.6 RDW 16.1 H Plt Count 183 Seg Neutrophils % Not Reportable Sodium 144.9 Potassium 3.5 L Chloride 111 H Carbon Dioxide 33 H Anion Gap 1 L BUN 16 Creatinine 1.05 Est GFR ( Amer) > 60 Glucose 88 Calcium 8.1 L Albumin 2.6 L 05/23/19 11:41 Blood Blood Culture - Final NO GROWTH IN 5 DAYS 05/23/19 10:40 Blood Blood Culture - Final NO GROWTH IN 5 DAYS 05/20/19 05/20/19 16:34 16:34 Creatine Kinase < 20 L CK-MB (CK-2) 0.59 Troponin I 0.024 Impressions: Chest CT 05/20/19 17:15 IMPRESSION: Right hilar scarring. Findings are similar to the prior study. No new lung consolidations or nodules. Abdomen/Pelvis CT 05/22/19 12:14 IMPRESSION: Grossly stable CT abdomen and pelvis. No acute findings. Head CT 05/23/19 12:23 IMPRESSION: CHRONIC CHANGES OF ATROPHY AND MICROVASCULAR ISCHEMIA. NO ACUTE PROCESS. EVIDENCE OF ACUTE STROKE: NO. Chest X-Ray 05/24/19 13:03 IMPRESSION: NO ACUTE RADIOGRAPHIC FINDING IN THE CHEST. Assessment and Plan - Diagnosis (1) Acute metabolic encephalopathy Is this a current diagnosis for this admission?: Yes (2) Acute on chronic anemia Is this a current diagnosis for this admission?: Yes (3) Benign pneumobilia Is this a current diagnosis for this admission?: Yes (4) Lethargy Is this a current diagnosis for this admission?: Yes (5) Hypocalcemia Is this a current diagnosis for this admission?: Yes - Plan Summary Summary: Patient is admitted to [facility] for evaluation and treatment. A consultation will be obtained with hematology/oncology due to her significant hypercalcemia and her history of both breast and lung cancer. She will be given supportive and symptomatic cares. She will receive IV fluids and her hypercalcemia will be treated with Miacalcin and Zometa. Patient will have every 4 hours neuro checks and ongoing clinical evaluation. Daily metabolic profiles, magnesium levels and CBCs will be obtained. She will be continued on her usual medications for control of her hypertension, coronary artery disease, hypothyroidism and diabetes. Her vital signs will be assessed every 4 hours patient will be in a telemetry monitored bed. Before meals and at bedtime Accu-Cheks will be ob tained with sliding scale insulin for treatment of hyperglycemia and a hypoglycemic protocol in place. A thyroid profile will also be obtained. 05/28/2019 Patient's vital signs appear stable. Blood pressures on average appear to be 135/80, although slightly up this morning at 160/59. She is afebrile O2 sat 100% on 2 L nasal cannula Patient CBC is normal Calcium yesterday was slightly low at 8.2 we will recheck this morning BUN and creatinine appears stable, potassium stable 3.8 Sputum culture grew out Pseudomonas, currently on Maxipime Continue same course. Patient does not appear to be medically stable to fly to [place] at this time 05/29/2019 She is looking considerably better mentally today, talking in full sentences carrying on a normal conversation. We will continue IV antibiotics, if patient remains stable and has a good day today we will possibly discharge home tomorrow - Time Time Spent with patient: 15-24 minutes
[2019-05-29] MEDS: ACETAMINOPHEN 325 MG TABLET PO PRN (21:03)
[2019-05-29] MEDS: FAMOTIDINE 20 MG TABLET PO SCH (21:05)
[2019-05-30] MEDS: IPRATROPIUM/ALBUTEROL 0.5-2.5 MG/3 ML AMPUL NEB SCH ×4 (02:42→20:44)
[2019-05-30] MEDS: HEPARIN SOD (PORCINE) 5,000 UNIT/ML 1 ML VIAL SUBCUT SCH ×3 (05:19→21:15)
[2019-05-30] MEDS: INSULIN REG, HUMAN 100 UNIT/ML 3 ML VIAL (PYX) SUBCUT SCH ×4 (08:45→21:09)
[2019-05-30] MEDS: DOCUSATE SODIUM 100 MG CAPSULE PO SCH (10:09)
[2019-05-30] MEDS: POTASSIUM CHLORIDE 10 MEQ CAPSULE.ER PO SCH ×2 (10:09→21:14)
[2019-05-30] MEDS: METHYLPREDNISOLONE INJ 40 MG/1 ML SDV IV SCH (10:11)
[2019-05-30] MEDS: FLUTICASONE/VILANTEROL 200-25 MCG/DOSE IH SCH (10:18)
[2019-05-30 11:39] LABS: HEMOGLOBIN 9.4 g/dL (12.0-15.5); MEAN CORPUSCULAR HEMOGLOBIN 32.4 pg (27.0-33.4); MEAN CORPUSCULAR HGB CONC 33.6 g/dL (32.0-36.0); MEAN CORPUSCULAR VOLUME 96 fl (80-97); PLATELET COUNT 183 10^3/uL (150-450); RED BLOOD COUNT 2.91 10^6/uL (3.72-5.28); RED CELL DISTRIBUTION WIDTH 16.1 % (11.5-14.0); WHITE BLOOD COUNT 4.8 10^3/uL (4.0-10.5)
[2019-05-30 11:58] LABS: ALBUMIN 2.6 g/dL (3.5-5.0); ALKALINE PHOSPHATASE 42 U/L (38-126); ASPARTATE AMINO TRANSFERASE 29 U/L (14-36); BILIRUBIN,DIRECT 0.1 mg/dL (0.0-0.4); BILIRUBIN,TOTAL 0.2 mg/dL (0.2-1.3); BLOOD UREA NITROGEN 13 mg/dL (7-20); CALCIUM 7.9 mg/dL (8.4-10.2); CARBON DIOXIDE 31 mmol/L (22-30); CHLORIDE 111 mmol/L (98-107); GLUCOSE 88 mg/dL (75-110); POTASSIUM 4.2 mmol/L (3.6-5.0); TOTAL PROTEIN 4.9 g/dL (6.3-8.2)
[2019-05-30 12:01] LABS: ANION GAP 2 (5-19)
[2019-05-30 12:04] LABS: ABSOLUTE MONOCYTES # (MANUAL) 0.3 10^3/uL (0.1-1.4); BASOPHILS % (MANUAL) 0 % (0-2); EOSINOPHILS % (MANUAL) 1 % (0-6); LYMPHOCYTES % (MANUAL) 20 % (13-45); METAMYELOCYTES % (MANUAL) 1 % (0-1); MONOCYTES % (MANUAL) 6 % (3-13); SEGMENTED NEUTROPHILS % (MAN) 72 % (42-78); TOTAL CELLS COUNTED 100
[2019-05-30 12:07] LABS: ANISOCYTOSIS SLIGHT; OVALOCYTES 1+; PLATELET COMMENT ADEQUATE; POIKILOCYTOSIS 1+; TEAR DROP CELLS SLIGHT
[2019-05-30] MEDS ORDERED: CALCIUM GLUCONATE 2,000 MG in DEXTROSE 5%-WATER 100 ML IV ONE (14:00)
[2019-05-30] MEDS: ACETAMINOPHEN 325 MG TABLET PO PRN (21:14)
[2019-05-30] MEDS: FAMOTIDINE 20 MG TABLET PO SCH (21:14)
[2019-05-31] MEDS: IPRATROPIUM/ALBUTEROL 0.5-2.5 MG/3 ML AMPUL NEB SCH ×3 (02:24→14:20)
[2019-05-31] MEDS: HEPARIN SOD (PORCINE) 5,000 UNIT/ML 1 ML VIAL SUBCUT SCH ×2 (05:17→14:40)
[2019-05-31] MEDS: INSULIN REG, HUMAN 100 UNIT/ML 3 ML VIAL (PYX) SUBCUT SCH ×3 (07:33→15:19)
[2019-05-31] MEDS: POTASSIUM CHLORIDE 10 MEQ CAPSULE.ER PO SCH (09:50)
[2019-05-31] MEDS: METHYLPREDNISOLONE INJ 40 MG/1 ML SDV IV SCH (09:50)
[2019-05-31] MEDS: FLUTICASONE/VILANTEROL 200-25 MCG/DOSE IH SCH (09:51)
[2019-05-31] MEDS: DOCUSATE SODIUM 100 MG CAPSULE PO SCH (09:51)
[2019-05-31] MEDS: ACETAMINOPHEN 325 MG TABLET PO PRN (10:04)
[2019-05-31 17:01] VITALS: BP 150/79
--- NOTE | 2019-06-11 13:35 | PDOC DISCHARGE SUMMARY ---
Impression - Admit/DC Date/PCP Admission Date/Primary Care Provider: 05/20/19 19:59 ARASELI AGUILAR MD Discharge Date: 05/30/19 - Discharge Diagnosis (1) Acute metabolic encephalopathy Is this a current diagnosis for this admission?: Yes (2) Acute on chronic anemia Is this a current diagnosis for this admission?: Yes (3) Benign pneumobilia Is this a current diagnosis for this admission?: Yes (4) Lethargy Is this a current diagnosis for this admission?: Yes (5) Hypocalcemia Is this a current diagnosis for this admission?: Yes - Assessment Summary: Patient is admitted to [facility] for evaluation and treatment. A consultation will be obtained with hematology/oncology due to her significant hypercalcemia and her history of both breast and lung cancer. She will be given supportive and symptomatic cares. She will receive IV fluids and her hypercalcemia will be treated with Miacalcin and Zometa. Patient will have every 4 hours neuro checks and ongoing clinical evaluation. Daily metabolic profiles, magnesium levels and CBCs will be obtained. She will be continued on her usual medications for control of her hypertension, coronary artery disease, hypothyroidism and diabetes. Her vital signs will be assessed every 4 hours patient will be in a telemetry monitored bed. Before meals and at bedtime Accu-Cheks will be obtained with sliding scale insulin for treatment of hyperglycemia and a hypoglycemic protocol in place. A thyroid profile will also be obtained. 05/28/2019 Patient's vital signs appear stable. Blood pressures on average appear to be 135/80, although slightly up this morning at 160/59. She is afebrile O2 sat 100% on 2 L nasal cannula Patient CBC is normal Calcium yesterday was slightly low at 8.2 we will recheck this morning BUN and creatinine appears stable, potassium stable 3.8 Sputum culture grew out Pseudomonas, currently on Maxipime Continue same course. Patient does not appear to be medically stable to fly to [place] at this time 05/29/2019 She is looking considerably better mentally today, talking in full sentences carrying on a normal conversation. We will continue IV antibiotics, if patient remains stable and has a good day today we will possibly discharge home tomorrow 05/30/2019 She is back to her baseline, appears to be medically stable. Patient will be discharged home - Additional Information Resuscitation Status: Full Code Discharge Diet: As Tolerated Discharge Activity: Balance Activity w/Rest Referrals: ARASELI AGUILAR MD [Primary Care Provider] - 06/05/19 1:30 pm Prescriptions: Potassium Chloride [Klor-Con 10 Meq Capsule ER] 20 meq PO Q12 #60 capsule.er Home Medications: Albuterol Sulfate [Ventolin 0.083% Neb 2.5 mg/3 mL Ampul] 1 vial NEB RTTID 05/21/19 Budesonide/Formoterol Fumarate [Symbicort HFA 160-4.5 mcg Inhaler 6 gm] 2 puff IH Q12 05/21/19 Ipratropium/Albuterol Sulfate [Duoneb 3 ml Ampul] 3 ml NEB RTQID 05/21/19 Levothyroxine Sodium 50 mcg PO Q6AM 05/21/19 Lorazepam [Ativan 1 mg Tablet] 0.5 mg PO BID 05/21/19 Nystatin [Mycostatin Topical Powder 15 gm] 1 applic TP QID 05/21/19 Prednisone [Deltasone 10 mg Tablet] 10 mg PO DAILY 05/21/19 Potassium Chloride [Klor-Con 10 Meq Capsule ER] 20 meq PO Q12 #60 capsule.er 05/30/19 Ciprofloxacin HCl [Cipro 500 mg Tablet] 500 mg PO BID #14 tablet 06/05/19 Metronidazole [Flagyl 500 mg Tablet] 500 mg PO Q6H #28 tablet 06/05/19 Saccharomyces Boulardii [Florastor] 250 mg PO BID #20 capsule 06/05/19 History of Present Illiness History of Present Illness: TRENTON MCCOY is a 73 year old female Physical Exam Vital Signs: Temp Pulse Resp BP Pulse Ox 98.1 F 99 20 150/79 H 98 05/31/19 16:58 05/31/19 16:58 05/31/19 16:58 05/31/19 16:58 05/31/19 16:58 Results Laboratory Results: WBC 4.8 10^3/uL (4.0-10.5) 05/30/19 11:20 RBC 2.91 10^6/uL (3.72-5.28) L 05/30/19 11:20 Hgb 9.4 g/dL (12.0-15.5) L 05/30/19 11:20 Hct 28.0 % (36.0-47.0) L 05/30/19 11:20 MCV 96 fl (80-97) 05/30/19 11:20 MCH 32.4 pg (27.0-33.4) 05/30/19 11:20 MCHC 33.6 g/dL (32.0-36.0) 05/30/19 11:20 RDW 16.1 % (11.5-14.0) H 05/30/19 11:20 Plt Count 183 10^3/uL (150-450) 05/30/19 11:20 Lymph % (Auto) Not Reportable 05/30/19 11:20 [place] % (Auto) Not Reportable 05/30/19 11:20 Eos % (Auto) Not Reportable 05/30/19 11:20 Baso % (Auto) Not Reportable 05/30/19 11:20 Reticulocyte # 0.022 10^6/uL (0.028-0.122) L 05/25/19 03:33 Absolute Neuts (auto) Not Reportable 05/30/19 11:20 Absolute Lymphs (auto) Not Reportable 05/30/19 11:20 Absolute Monos (auto) Not Reportable 05/30/19 11:20 Absolute Eos (auto) Not Reportable 05/30/19 11:20 Absolute Basos (auto) Not Reportable 05/30/19 11:20 Total Counted 100 05/30/19 11:20 Seg Neutrophils % Not Reportable 05/30/19 11:20 Seg Neuts % (Manual) 72 % (42-78) 05/30/19 11:20 Band Neutrophils % 1 % (3-5) L 05/28/19 10:50 Lymphocytes % (Manual) 20 % (13-45) 05/30/19 11:20 Monocytes % (Manual) 6 % (3-13) 05/30/19 11:20 Eosinophils % (Manual) 1 % (0-6) 05/30/19 11:20 Basophils % (Manual) 0 % (0-2) 05/30/19 11:20 Metamyelocytes % 1 % (0-1) 05/30/19 11:20 Abs Neuts (Manual) 3.5 10^3/uL (1.7-8.2) 05/30/19 11:20 Abs Lymphs (Manual) 1.0 10^3/uL (0.5-4.7) 05/30/19 11:20 Abs Monocytes (Manual) 0.3 10^3/uL (0.1-1.4) 05/30/19 11:20 Absolute Eos (Manual) 0.0 10^3/uL (0.0-0.6) 05/30/19 11:20 Abs Basophils (Manual) 0.0 10^3/uL (0.0-0.2) 05/30/19 11:20 Clumped Platelets PRESENT 05/20/19 16:34 Platelet Comment ADEQUATE 05/30/19 11:20 Poikilocytosis 1+ 05/30/19 11:20 Anisocytosis SLIGHT 05/30/19 11:20 Tear Drop Cells SLIGHT 05/30/19 11:20 Ovalocytes 1+ 05/30/19 11:20 Retic Count (auto) 0.99 % (0.66-2.85) 05/25/19 03:33 Carbonic Acid 1.64 mmol/L (1.05-1.35) H 05/27/19 07:42 HCO3/H2CO3 Ratio 17:1 05/27/19 07:42 ABG pH 7.35 (7.35-7.45) 05/27/19 07:42 ABG pCO2 54.5 mmHg (35-45) H 05/27/19 07:42 ABG pO2 84.3 mmHg (80-100) 05/27/19 07:42 ABG HCO3 29.4 mmol/L (20-24) H 05/27/19 07:42 ABG Total CO2 31.1 mmol/L (21-25) H 05/27/19 07:42 ABG O2 Saturation 95.7 % (94-98) 05/27/19 07:42 ABG Base Excess 3.1 mmol/L 05/27/19 07:42 FiO2 2L 05/27/19 07:42 Sodium 143.5 mmol/L (137-145) 05/30/19 11:20 Potassium 4.2 mmol/L (3.6-5.0) 05/30/19 11:20 Chloride 111 mmol/L (98-107) H 05/30/19 11:20 Carbon Dioxide 31 mmol/L (22-30) H 05/30/19 11:20 Anion Gap 2 (5-19) L 05/30/19 11:20 BUN 13 mg/dL (7-20) 05/30/19 11:20 Creatinine 0.88 mg/dL (0.52-1.25) 05/30/19 11:20 Est GFR ( Amer) > 60 (>60) 05/30/19 11:20 Est GFR (MDRD) Non-Af > 60 (>60) 05/30/19 11:20 Glucose 88 mg/dL (75-110) 05/30/19 11:20 POC Glucose 226 mg/dL (70-110) H 05/31/19 15:04 Calcium 7.9 mg/dL (8.4-10.2) L 05/30/19 11:20 Phosphorus 3.5 mg/dL (2.5-4.5) 05/23/19 05:24 Magnesium 1.7 mg/dL (1.6-2.3) 05/23/19 05:24 Iron 68.5 ug/dL (37-170) 05/25/19 03:33 TIBC 205 ug/dL (250-450) L 05/25/19 03:33 % Saturation 33 % 05/25/19 03:33 Ferritin 145.00 ng/mL (11.1-264.0) 05/25/19 03:33 Total Bilirubin 0.2 mg/dL (0.2-1.3) 05/30/19 11:20 Direct Bilirubin 0.1 mg/dL (0.0-0.4) 05/30/19 11:20 Neonat Total Bilirubin Not Reportable 05/30/19 11:20 Neonat Direct Bilirubin Not Reportable 05/30/19 11:20 Neonat Indirect Bili Not Reportable 05/30/19 11:20 AST 29 U/L (14-36) 05/30/19 11:20 ALT 32 U/L (<35) 05/30/19 11:20 Alkaline Phosphatase 42 U/L (38-126) 05/30/19 11:20 Creatine Kinase < 20 U/L (30-135) L 05/20/19 16:34 CK-MB (CK-2) 0.59 ng/mL (<4.55) 05/20/19 16:34 Troponin I 0.024 ng/mL 05/20/19 16:34 Total Protein 4.9 g/dL (6.3-8.2) L 05/30/19 11:20 Albumin 2.6 g/dL (3.5-5.0) L 05/30/19 11:20 Vitamin B12 590.0 pg/mL (239-931) 05/25/19 03:33 Vitamin D 25-Hydroxy 21.5 ng/mL (14.7-68.3) 05/22/19 10:59 Vit D 1,25-Dihydroxy 7.5 pg/mL (19.9-79.3) L 05/22/19 10:59 Folate > 20.00 ng/mL (>2.76) 05/25/19 03:33 TSH 0.47 uIU/mL (0.47-4.68) 05/20/19 16:34 Free T4 1.07 ng/dL (0.78-2.19) 05/20/19 16:34 Free T3 pg/mL 2.08 pg/mL (2.77-5.27) L 05/20/19 16:34 PTH Intact 4.7 pg/mL (10.0-65.0) L 05/21/19 10:53 PTH Related Peptide <2.0 pmol/L (.) 05/22/19 10:59 Urine Color STRAW 05/20/19 16:34 Urine Appearance SLIGHTLY-CLOUDY 05/20/19 16:34 Urine pH 7.0 (5.0-9.0) 05/20/19 16:34 Ur Specific [place] 1.004 05/20/19 16:34 Urine Protein NEGATIVE mg/dL (NEGATIVE) 05/20/19 16:34 Urine Glucose (UA) NEGATIVE mg/dL (NEGATIVE) 05/20/19 16:34 Urine Ketones NEGATIVE mg/dL (NEGATIVE) 05/20/19 16:34 Urine Blood NEGATIVE (NEGATIVE) 05/20/19 16:34 Urine Nitrite NEGATIVE (NEGATIVE) 05/20/19 16:34 Urine Bilirubin NEGATIVE (NEGATIVE) 05/20/19 16:34 Urine Urobilinogen NEGATIVE mg/dL (<2.0) 05/20/19 16:34 Ur Leukocyte Esterase NEGATIVE (NEGATIVE) 05/20/19 16:34 Urine WBC (Auto) 5 /HPF 05/20/19 16:34 Urine RBC (Auto) 2 /HPF 05/20/19 16:34 U Hyaline Cast (Auto) 7 /LPF 05/20/19 16:34 Urine Bacteria (Auto) TRACE /HPF 05/20/19 16:34 Squamous Epi Cells Auto <1 /HPF 05/20/19 16:34 Urine Mucus (Auto) RARE /LPF 05/20/19 16:34 Urine Ascorbic Acid NEGATIVE (NEGATIVE) 05/20/19 16:34 Stool Occult Blood NEGATIVE (NEGATIVE) 05/26/19 11:57 Stl C. Difficile GDH Ag NEGATIVE (NEGATIVE) 05/26/19 11:57 Stl C.difficile Tox A&B NEGATIVE (NEGATIVE) 05/26/19 11:57 Urine Opiates Screen NEGATIVE 05/20/19 16:34 Urine Methadone Screen NEGATIVE 05/20/19 16:34 Ur Barbiturates Screen NEGATIVE 05/20/19 16:34 Ur Phencyclidine Scrn NEGATIVE 05/20/19 16:34 Ur Amphetamines Screen NEGATIVE 05/20/19 16:34 U Benzodiazepines Scrn NEGATIVE 05/20/19 16:34 Urine Cocaine Screen NEGATIVE 05/20/19 16:34 U Marijuana (THC) Screen NEGATIVE 05/20/19 16:34 Blood Type O POSITIVE 05/25/19 09:04 Antibody Screen NEGATIVE 05/25/19 09:04 Crossmatch See Detail 05/25/19 09:04 05/20/19 16:34 CK-MB (CK-2) 0.59 Troponin I 0.024 Impressions: Chest X-Ray 05/20/19 15:50 IMPRESSION: STABLE CHRONIC CHANGES. NO ACUTE RADIOGRAPHIC FINDING IN THE [place] [facility]. Chest CT 05/20/19 17:15 IMPRESSION: Right hilar scarring. Findings are similar to the prior study. No new lung consolidations or nodules. Head CT 05/20/19 17:16 IMPRESSION: No acute intracranial hemorrhage. Extensive chronic small vessel ischemic changes. Abdomen/Pelvis CT 05/22/19 12:14 IMPRESSION: Grossly stable CT abdomen and pelvis. No acute findings. Chest X-Ray 05/23/19 00:00 IMPRESSION: NO ACUTE RADIOGRAPHIC FINDING IN THE CHEST. Chest X-Ray 05/23/19 00:00 IMPRESSION: No pneumothorax. Right IJ CVC in place. Head CT 05/23/19 12:23 IMPRESSION: CHRONIC CHANGES OF ATROPHY AND MICROVASCULAR ISCHEMIA. NO ACUTE PROCESS. EVIDENCE OF ACUTE STROKE: NO. Chest X-Ray 05/24/19 13:03 IMPRESSION: NO ACUTE RADIOGRAPHIC FINDING IN THE CHEST. Stroke Is this a Stroke Patient?: No Acute Heart Failure - Is this a Heart Failure Patient?: No
== END 2019-05-31 19:35 | disposition home or self-care (01) | DRG 640 ==
LOC: ER 15:39 → EH 19:59 → 3W 23:02
PROVIDERS: ADMIT Emergency Medicine; ATTEND Emergency Medicine
PROC: 02HV33Z Insertion of Infusion Device into Superior Vena Cava, Percutaneous Approach (ICD-10-PCS; principal; 2019-05-23)
PROC: 30243N1 Transfusion of Nonautologous Red Blood Cells into Central Vein, Percutaneous Approach (ICD-10-PCS; 2019-05-25)
DX: E83.52 Hypercalcemia (principal); G93.41 Metabolic encephalopathy; J96.22 Acute and chronic respiratory failure with hypercapnia; N17.9 Acute kidney failure, unspecified; J44.0 Chronic obstructive pulmonary disease with (acute) lower respiratory infection; E87.6 Hypokalemia; E86.0 Dehydration; J20.9 Acute bronchitis, unspecified; K83.8 Other specified diseases of biliary tract; I11.0 Hypertensive heart disease with heart failure; I50.9 Heart failure, unspecified; I25.10 Atherosclerotic heart disease of native coronary artery without angina pectoris; I48.91 Unspecified atrial fibrillation; I25.2 Old myocardial infarction; E66.9 Obesity, unspecified; E03.9 Hypothyroidism, unspecified; K21.9 Gastro-esophageal reflux disease without esophagitis; D64.9 Anemia, unspecified; E83.51 Hypocalcemia; M10.9 Gout, unspecified; M19.90 Unspecified osteoarthritis, unspecified site; F03.90 Unspecified dementia, unspecified severity, without behavioral disturbance, psychotic disturbance, mood disturbance, and anxiety; E11.36 Type 2 diabetes mellitus with diabetic cataract; J44.9 Chronic obstructive pulmonary disease, unspecified; B96.5 Pseudomonas (aeruginosa) (mallei) (pseudomallei) as the cause of diseases classified elsewhere; F32.9 Major depressive disorder, single episode, unspecified; Z90.49 Acquired absence of other specified parts of digestive tract; Z87.891 Personal history of nicotine dependence; Z79.51 Long term (current) use of inhaled steroids; Z79.899 Other long term (current) drug therapy; Z88.0 Allergy status to penicillin; Z88.1 Allergy status to other antibiotic agents; Z88.3 Allergy status to other anti-infective agents; Z85.3 Personal history of malignant neoplasm of breast; Z85.118 Personal history of other malignant neoplasm of bronchus and lung; Z85.841 Personal history of malignant neoplasm of brain
CPT/HCPCS: 36415; 36430; 36600; 51701; 70450; 71045; 71250; 74176; 80048; 80053; 80307; 81001; 82040; 82272; 82306; 82397; 82550; 82553; 82607; 82652; 82728; 82746; 82803; 82962; 83540; 83550; 83735; 83970; 84100; 84132; 84439; 84443; 84481; 84484; 85025; 85027; 85045; 86850; 86900; 86901; 86920; 87040; 87070; 87077; 87186; 87205; 87324; 87449; 93005; 93010; 94640; 94660; 96372; 96374; 96375; 99285; J0610; J0630; J0692; J1642; J1644; J1815; J2920; J3480; J3489; J3490; J7030; J7060; J7120; J7512; J7614; J7620; P9016

== ENCOUNTER 2019-06-04 20:10 | Emergency (ER) | payer MEDICARE, OTHER ==
[2019-06-04] MEDS ORDERED: DEXTROSE 5%-1/2 NORMAL SALINE 1,000 ML IV ONE (20:46)
[2019-06-04] MEDS ORDERED: NORMAL SALINE 500 ML IV ONE ×2 (20:46→22:47)
--- NOTE | 2019-06-04 20:52 | ER Document Report ---
ED General - General Chief Complaint: Diarrhea Stated Complaint: WEAKNESS Time Seen by Provider: 06/04/19 20:27 Primary Care Provider: ARASELI AGUILAR MD [Primary Care Provider] - Follow up as needed TRAVEL OUTSIDE OF THE [place] IN LAST 30 DAYS: No - Related Data Allergies/Adverse Reactions: azithromycin Allergy (Verified 12/30/18 17:18) cephalexin Allergy (Verified 12/30/18 17:18) Penicillins Allergy (Verified 12/30/18 17:18) amoxicillin [Amoxicillin] Adverse Reaction (Verified 12/30/18 17:18) visual hallucinations erythromycin base [Erythromycin Base] Adverse Reaction (Verified 12/30/18 17:18) visual hallucinations Potassium Clavulanate * [From Augmentin] Adverse Reaction (Verified 12/30/18 17:18) visual hallucinations Past Medical History - Social History Smoking Status: Never Smoker Chew tobacco use (# tins/day): No Frequency of alcohol use: None Drug Abuse: None Family History: COPD, Malignancy - Lung cancer Patient has suicidal ideation: No Patient has homicidal ideation: No - Past Medical History Cardiac Medical History: Reports: Hx Atrial Fibrillation, Hx Congestive Heart Failure, Hx Coronary Artery Disease, Hx Heart Attack, Hx Hypertension Denies: Hx DVT, Hx Hypercholesterolemia, Hx Pulmonary Embolism Pulmonary Medical History: Reports: Hx Asthma, Hx Bronchitis, Hx COPD, Hx Pneumonia, Hx Respiratory Failure - Chronic respiratory failure Denies: Hx Sleep Apnea, Hx Tuberculosis Neurological Medical History: Denies: Hx Seizures, Hx Parkinson's Disease Endocrine Medical History: Reports: Hx Diabetes Mellitus Type 2, Hx Hypothyroidism. 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 Denies: Hx Cirrhosis, Hx Hepatitis, Hx Ulcer Musculoskeletal Medical History: Reports Hx Arthritis, Reports Hx Gout, Denies Hx Multiple Sclerosis, Reports Hx Musculoskeletal Deformity, Reports Hx Musculoskeletal Trauma Skin Medical History: Denies Hx Eczema, Denies Hx Psoriasis Psychiatric Medical History: Reports: Hx Dementia, Hx Depression Denies: Hx Bipolar Disorder, Hx Schizophrenia Infectious Medical History: Reports: Hx C-Diff. Denies: Hx Hepatitis Past Surgical History: Reports: Hx Cholecystectomy, Hx Orthopedic Surgery - Foot surgery, Other - Bilateral cataract surgery - Immunizations Immunizations up to date: Yes Hx Diphtheria, Pertussis, Tetanus Vaccination: Yes Hx Pneumococcal Vaccination: 08/30/12 Physical Exam - Vital signs Vitals: Resp BP Pulse Ox 13 137/117 H 100 06/04/19 20:28 06/04/19 20:28 06/04/19 20:28 - Notes Notes: Patient presents emergency department complaining of weakness and diarrhea this been going on all day. She is had multiple episodes of diarrhea. Is watery no blood no recent antibiotics. Some intermittent abdominal pain associated with dislocated both the right and left lower quadrant. There is no fevers. She has chronic chest pain or shortness of breath which is unchanged and her appetite has been decreased. Was recently discharged from the hospital about 3 days ago admitted with altered mental status kidney failure and elevated calcium Past medical history includes low thyroid coronary artery disease [place] atrial fibrillation dementia lung cancer with mets to the brain. Says she denies any recent chemo or radiation PHYSICAL EXAMINATION: Vital signs are noted she is in no acute distress entry room higher is now 110 pressures 130/120 GENERAL: Well-appearing, well-nourished and in no acute distress. HEAD: Atraumatic, normocephalic. EYES: Pupils equal round and reactive to light, extraocular movements intact, sclera anicteric, conjunctiva are normal. ENT: nares patent, oropharynx clear without exudates. I dry mucous membranes. NECK: Normal range of motion, supple without lymphadenopathy LUNGS: Breath sounds clear to auscultation bilaterally and equal. Occasional wheeze but no respiratory distress HEART: Rapid and regular ABDOMEN: Soft, obese there is some minimal tenderness across the lower abdomen. EXTREMITIES: No deformity or edema. NEUROLOGICAL: No focal neurological deficits. Moves all extremities spontaneously and on command. She is awake and alert she can tell me she is in the hospital her name and date of not the month of the day to week but she says she does not keep track of that. Cranial nerves she has symmetrical smile and facial expressions. Her motor strength is symmetric throughout and toes are downgoing Back is nontender PSYCH: Normal mood, normal affect. SKIN: Warm, Dry, normal turgor, no rashes or lesions noted. Course - Re-evaluation Re-evalutation: 06/05/19 03:02 ED patient is remained stable she was given a bolus of normal saline with real change in her heart rate was given a second 500 cc till psych tachycardic at 110 she was started on Cipro and Flagyl because of allergies to penicillin 06/05/19 03:17 Consult discussed case with the hospitalist tachycardia UTI and CT findings he reports that patient had a normal echo last year felt to be given some more fluid reevaluated and possibly medicine as an outpatient since she is tolerating p.o. fluids 06/05/19 04:32 Patient was given additional 500 cc of normal saline heart rate is now below 100. She is given p.o. fluids which is tolerated well. I did talk to the p atient she says she is actually prefer to go home Medical decision making patient presents with multiple episodes of diarrhea. She has had some evidence of mild colitis [place] is improved she is feeling better she is tolerating liquids well she been given IV antibiotics already and I think she is stable for discharge discussed results with the patient denies need for her to return if she necessarily better within the next 24 to 36 hours - Vital Signs Vital signs: Temp Pulse Resp BP Pulse Ox 20 127/80 H 100 06/05/19 01:00 06/04/19 21:01 06/05/19 01:00 - Laboratory Result Diagrams: 06/04/19 21:35 06/04/19 21:35 Laboratory results interpreted by me: 06/04/19 06/04/19 06/04/19 21:01 21:35 21:35 RBC 3.34 L Hgb 10.8 L Hct 32.0 L RDW 16.3 H Lymph % (Auto) 5.7 L Seg Neutrophils % 82.9 H Carbon Dioxide 35 H Est GFR (MDRD) Non-Af 53 L Calcium 11.5 H Creatine Kinase < 20 L Total Protein 6.1 L Albumin 3.4 L Urine Protein 100 H Urine Blood MODERATE H Ur Leukocyte Esterase LARGE H - Diagnostic Test Radiology reviewed: Pending, Reports reviewed Radiology results interpreted by me: 06/05/19 03:18 Chest x-ray read by me shows no acute infiltrate - EKG Interpretation by Me Additional EKG results interpreted by me: 06/04/19 20:52 EKG shows a sinus tachycardia with a rate of 109. There is a left axis deviation and a right bundle branch block QT interval is upper limits of normal at 0.47 appears to be unchanged from previous from April Discharge - Discharge Clinical Impression: Colitis presumed infectious, UTI (urinary tract infection), Hypercalcemia Disposition: HOME, SELF-CARE Instructions: Urinary Tract Infection ([facility]) Additional Instructions: Drink plenty of fluids You can take Imodium for the diarrhea Follow-up with your family doctor in 2 to 3 days if not better otherwise in 2 weeks. Return to the ED if you get worse Prescriptions: Ciprofloxacin HCl [Cipro 500 mg Tablet] 500 mg PO BID #14 tablet Metronidazole [Flagyl 500 mg Tablet] 500 mg PO Q6H #28 tablet Saccharomyces Boulardii [Florastor] 250 mg PO BID #20 capsule Referrals: ARASELI AGUILAR MD [Primary Care Provider] - Follow up as needed
[2019-06-04 21:18] LABS: APPEARANCE,URINE TURBID; BILIRUBIN,URINE NEGATIVE (NEGATIVE); COLOR,URINE YELLOW; GLUCOSE, URINE NEGATIVE (NEGATIVE); KETONES,URINE NEGATIVE (NEGATIVE); LEUKOCYTE ESTERASE,URINE LARGE (NEGATIVE); NITRITE,URINE NEGATIVE (NEGATIVE); PROTEIN,URINE 100 mg/dL (NEGATIVE); URINE SPECIFIC GRAVITY 1.011; UROBILINOGEN,URINE NEGATIVE mg/dL (<2.0)
[2019-06-04 21:47] LABS: ABSOLUTE LYMPHOCYTES (AUTO) 0.5 10^3/uL (0.5-4.7); ABSOLUTE NEUT (AUTO) 7.7 10^3/uL (1.7-8.2); BASOPHILS % (AUTO) 0.2 % (0-2); EOSINOPHILS % (AUTO) 0.3 % (0-6); HEMOGLOBIN 10.8 g/dL (12.0-15.5); LYMPHOCYTES % (AUTO) 5.7 % (13-45); MEAN CORPUSCULAR HEMOGLOBIN 32.3 pg (27.0-33.4); MEAN CORPUSCULAR HGB CONC 33.8 g/dL (32.0-36.0); MEAN CORPUSCULAR VOLUME 96 fl (80-97); MONOCYTES % (AUTO) 10.9 % (3-13); PLATELET COUNT 200 10^3/uL (150-450); RED BLOOD COUNT 3.34 10^6/uL (3.72-5.28); RED CELL DISTRIBUTION WIDTH 16.3 % (11.5-14.0); SEGMENTED NEUTROPHILS % (AUTO) 82.9 % (42-78); TOTAL CELLS COUNTED % (AUTO) 100 %; WHITE BLOOD COUNT 9.3 10^3/uL (4.0-10.5)
[2019-06-04 22:06] LABS: ALBUMIN 3.4 g/dL (3.5-5.0); ALKALINE PHOSPHATASE 55 U/L (38-126); ANION GAP 6 (5-19); ASPARTATE AMINO TRANSFERASE 21 U/L (14-36); BILIRUBIN,DIRECT 0.2 mg/dL (0.0-0.4); BILIRUBIN,TOTAL 0.5 mg/dL (0.2-1.3); BLOOD UREA NITROGEN 20 mg/dL (7-20); CALCIUM 11.5 mg/dL (8.4-10.2); CARBON DIOXIDE 35 mmol/L (22-30); CHLORIDE 100 mmol/L (98-107); GLUCOSE 105 mg/dL (75-110); POTASSIUM 4.6 mmol/L (3.6-5.0); TOTAL PROTEIN 6.1 g/dL (6.3-8.2)
[2019-06-04 22:18] LABS: CREATINE KINASE MB 0.82 ng/mL (<4.55); TROPONIN I 0.028 ng/mL
[2019-06-04 22:20] LABS: CREATINE KINASE < 20 U/L (30-135)
[2019-06-04] MEDS ORDERED: CIPROFLOXACIN HCL 500 MG TABLET PO ONE (22:57)
[2019-06-05] MEDS ORDERED: METRONIDAZOLE 500 MG/NS RTU 500 MG/100 ML RTUPB IV ONE (01:00)
[2019-06-05 01:52] LABS: C DIFFICILE GDH NEGATIVE (NEGATIVE)
[2019-06-05] MEDS ORDERED: NORMAL SALINE 500 ML IV ONE (03:16)
[2019-06-05 08:38] VITALS: BP 135/74
--- NOTE | 2019-06-05 11:03 | RADIOLOGY REPORT (SQ) ---
EXAM DESCRIPTION: CT ABDOMEN PELVIS WITH IV CONTRAST COMPLETED DATE/TME: 06/04/2019 CLINICAL HISTORY: 73 years, Female, generalized abdominal pain COMPARISON: None. TECHNIQUE: Contrast enhanced CT of the abdomen/pelvis was performed. Images were obtained after the uneventful administration of 87 mL of Omnipaque 350 intravenous contrast. Images stored on PACS. All CT scanners at this facility use dose modulation, iterative reconstruction, and/or weight based dosing when appropriate to reduce radiation dose to as low as reasonably achievable (ALARA). [facility]: Dose Right [facility]: CareDose [facility]: Dose Right [facility]: Teradose 4D [facility]: [employer] [facility] LIMITATIONS: None. FINDINGS: Limited evaluation of the lower chest reveals irregular consolidative opacity about the right perihilar region with associated bronchiectasis and reticulation, corresponding to focal fibrosis. Lung bases are otherwise clear. Calcifications are evident about the coronary vessels and thoracic aorta. Liver enhances normally. Pneumobilia is evident. The spleen, pancreas, and both adrenal glands appear normal. Gallbladder is absent. Simple cyst emanates from the upper pole of the right kidney. Subcentimeter low-density lesion located within the interpolar region of the right kidney is too small to accurately characterize. Both kidneys otherwise enhance symmetrically. No hydronephrosis or hydroureter. Urinary bladder is partially collapsed but appears diffusely thick-walled. In addition, a small diverticulum emanates from the rightward/posterior aspect of the urinary bladder. Uterus and both ovaries show no suspicious finding. Mild circumferential wall thickening is noted about the rectosigmoid colon. A few colonic diverticula are evident. The appendix is normal. No evidence of bowel obstruction. Calcifications are evident about the abdominal aorta and proximal iliac vessels. No suspicious lymphadenopathy or drainable fluid collections. Bone windows show no destructive osseous lesions. IMPRESSION: Mild urinary bladder wall thickening. Correlate for cystitis. Circumferential wall thickening involving the rectosigmoid consider a superimposed infectious/inflammatory colitis. TECHNICAL DOCUMENTATION: Quality ID # [id number]: Final reports with documentation of one or more dose reduction techniques (e.g., Automated exposure control, adjustment of the mA and/or kV according to patient size, use of iterative reconstruction technique) copyright 2011 [employer]- All Rights Reserved
--- NOTE | 2019-06-05 11:04 | RADIOLOGY REPORT (SQ) ---
EXAM DESCRIPTION: XR CHEST 1 VIEW COMPLETED DATE/TME: June 04, 2019 CLINICAL HISTORY: 73 years, Female, WEAKNESS COMPARISON: Multiple priors, most recent from 05/23/2019 NUMBER OF VIEWS: One TECHNIQUE: Single frontal view of the chest was obtained portably LIMITATIONS: None. FINDINGS: Cardiac and mediastinal contours are stable. Asymmetric enlargement of the right hilum is unchanged from 05/23/2019. Likewise, this is better visualized on the previous CT dated 04/03/2019. Lungs are otherwise clear. No pleural effusion or pneumothorax. IMPRESSION: No acute disease. copyright 2010 [employer]- All Rights Reserved
--- NOTE | 2019-06-06 00:01 | EKG REPORT ---
SEVERITY:- ABNORMAL ECG - SINUS TACHYCARDIA RIGHT BUNDLE BRANCH BLOCK : Confirmed by: Mercedes Solomon 06-Jun-2019 00:01:03
== END 2019-06-05 08:36 | disposition home or self-care (01) ==
LOC: ER 20:10
DX: K52.9 Noninfective gastroenteritis and colitis, unspecified (principal); N39.0 Urinary tract infection, site not specified; E83.52 Hypercalcemia; R53.1 Weakness; I50.9 Heart failure, unspecified; I25.10 Atherosclerotic heart disease of native coronary artery without angina pectoris; I10 Essential (primary) hypertension; E11.9 Type 2 diabetes mellitus without complications; J44.9 Chronic obstructive pulmonary disease, unspecified
CPT/HCPCS: 93005; 99284; 96365; 96366; 96368; 36415; 87040; 87086; 82553; 82550; 85025; 87088; 80053; 81001; 84484; 87186; 87324; 87449; 71045; 74177; 93010; A9270; J3490; J7040

== ENCOUNTER 2019-06-12 12:19 | Emergency (ER) | payer MEDICARE, OTHER ==
--- NOTE | 2019-06-12 13:04 | ER Document Report ---
ED General - General Chief Complaint: Breathing Difficulty Stated Complaint: DIFFICULTY BREATHING Time Seen by Provider: 06/12/19 12:51 Primary Care Provider: ARASELI AGUILAR MD [Primary Care Provider] - Follow up as needed TRAVEL OUTSIDE OF THE [place] IN LAST 30 DAYS: No - HPI Notes: Patient is a 73-year-old female with a history of A. fib (on aspirin), hypertension, CAD, lung/brain cancer in remission, COPD (on oxygen via nasal cannula at home regularly) who presents complaining of COPD/emphysema flareup that began yesterday. Patient states that she has had a dry cough as well as wheezing and shortness of breath started yesterday. She has been using her inhalers with minimal relief. She was recently treated for UTI about 8 days ago which she has finished medicines for. She is otherwise able to eat and drink without difficulty. She is urinating normally and having normal bowel movements. Denies any headache, fever, neck pain, URI, sore throat, chest pain, palpitations, syncope, abdominal pain, nausea/vomiting/diarrhea, urinary retention, dysuria, hematuria, loss of control of bowel or bladder, numbness/tingling, saddle anesthesia, muscle paralysis/weakness, or rash. - Related Data Allergies/Adverse Reactions: azithromycin Allergy (Verified 12/30/18 17:18) cephalexin Allergy (Verified 12/30/18 17:18) Penicillins Allergy (Verified 12/30/18 17:18) amoxicillin [Amoxicillin] Adverse Reaction (Verified 12/30/18 17:18) visual hallucinations erythromycin base [Erythromycin Base] Adverse Reaction (Verified 12/30/18 17:18) visual hallucinations Potassium Clavulanate * [From Augmentin] Adverse Reaction (Verified 12/30/18 17:18) visual hallucinations Past Medical History - Social History Smoking Status: Former Smoker Family History: COPD, Malignancy - Lung cancer Patient has suicidal ideation: No Patient has homicidal ideation: No - Past Medical History Cardiac Medical History: Reports: Hx Atrial Fibrillation, Hx Congestive Heart Failure, Hx Coronary Artery Disease, Hx Heart Attack, Hx Hypertension Denies: Hx DVT, Hx Hypercholesterolemia, Hx Pulmonary Embolism Pulmonary Medical History: Reports: Hx Asthma, Hx Bronchitis, Hx COPD, Hx Pneumonia, Hx Respiratory Failure - Chronic respiratory failure Denies: Hx Sleep Apnea, Hx Tuberculosis Neurological Medical History: Denies: Hx Seizures, Hx Parkinson's Disease Endocrine Medical History: Reports: Hx Diabetes Mellitus Type 2, Hx Hypothyroidism. 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 Denies: Hx Cirrhosis, Hx Hepatitis, Hx Ulcer Musculoskeletal Medical History: Reports Hx Arthritis, Reports Hx Gout, Denies Hx Multiple Sclerosis, Reports Hx Musculoskeletal Deformity, Reports Hx Musculoskeletal Trauma Skin Medical History: Denies Hx Eczema, Denies Hx Psoriasis Psychiatric Medical History: Reports: Hx Dementia, Hx Depression Denies: Hx Bipolar Disorder, Hx Schizophrenia Infectious Medical History: Reports: Hx C-Diff. Denies: Hx Hepatitis Past Surgical History: Reports: Hx Cholecystectomy, Hx Orthopedic Surgery - Foot surgery, Other - Bilateral cataract surgery - Immunizations Immunizations up to date: Yes Hx Diphtheria, Pertussis, Tetanus Vaccination: Yes Hx Pneumococcal Vaccination: 08/30/12 Review of Systems - Review of Systems -: Yes All other systems reviewed and negative Physical Exam - Vital signs Vitals: Pulse Ox 93 06/12/19 12:25 - Notes Notes: PHYSICAL EXAMINATION: GENERAL: Well-appearing, well-nourished and in no acute distress. A&Ox4. Answers questions appropriately. HEAD: Atraumatic, normocephalic. EYES: Pupils equal round and reactive to light, extraocular movements intact, sclera anicteric, conjunctiva are normal. ENT: Nares patent and without discharge. oropharynx clear without exudates. No tonsilar hypertrophy or erythema. Moist mucous membranes. NECK: Normal range of motion, supple without lymphadenopathy LUNGS: Breath sounds clear to auscultation bilaterally and equal. No wheezes rales or rhonchi. HEART: Regular rate and rhythm without murmurs, rubs, gallops. ABDOMEN: Soft, nontender, nondistended abdomen. No guarding, no rebound. Normal bowel sounds present. No CVA tenderness bilaterally. Musculoskeletal: FROM to passive/active. Strength 5+/5. [place] neg. No asymmetry to LE's. Extremities: No cyanosis, clubbing, or edema b/l. Peripheral pulses 2+. Capillary refill less than 3 seconds. NEUROLOGICAL: Normal speech, normal gait. PSYCH: Normal mood, normal affect. SKIN: Warm, Dry, normal turgor, no rashes or lesions noted. Course - Re-evaluation Re-evalutation: 06/12/19 16:34 Patient is an afebrile, well-hydrated 73-year-old female who presents to the ED with mild COPD exacerbation and acute UTI. Vitals are acceptable without any significant tachycardia, tachypnea, or hypoxia. PE is otherwise unremarkable. Patient is nontoxic-appearing and is tolerating p.o. without any difficulties. Pt is currently asymptomatic. She was originally on cipro, but our staff was unable to make contact with her to switch her antibiotic d/t resistance on C&S. She continues to have a UTI and yeast as well. Pt given diflucan PO. CBC, CMP, EKG/cardiac enzyme, BNP, chest x-ray are all unremarkable for any acute pathology. I do feel this to be primarily upper respiratory/COPD related. P atient does not have any chest pain nor has she. Patient's presentation and symptomatology creates low suspicion for ACS, PE, pneumothorax, pericarditis, dissection, respiratory compromise, severe dehydration, sepsis, meningitis, or other systemic emergent condition at this time. Patient is aware that this condition can change from initial presentation and she needs to monitor symptoms closely and seek medical attention for any acute changes. Pt is feeling better and would like to go home. Rx for macrobid. Recommend conservative measures for symptoms. Recheck with your PCM in 2-3 days. Return to the ED with any worsening/concerning symptoms otherwise as reviewed in discharge. Patient is in agreement. - Vital Signs Vital signs: Temp Pulse Resp BP Pulse Ox 98.0 F 12 135/70 H 94 06/12/19 12:56 06/12/19 12:47 06/12/19 12:47 06/12/19 12:47 - Laboratory Result Diagrams: 06/12/19 14:24 06/12/19 14:24 Laboratory results interpreted by me: 06/12/19 06/12/19 06/12/19 14:24 14:24 14:24 RBC 3.15 L Hgb 10.3 L Hct 30.0 L RDW 16.0 H Seg Neuts % (Manual) 85 H Lymphocytes % (Manual) 6 L Abs Neuts (Manual) 9.0 H Potassium 3.3 L Chloride 95 L Carbon Dioxide 39 H Anion Gap 4 L BUN 25 H Est GFR (MDRD) Non-Af 51 L Glucose 184 H Calcium 10.7 H NT-Pro-B Natriuret Pep 1240 H Total Protein 5.7 L Albumin 3.3 L Urine Nitrite Urine Urobilinogen Ur Leukocyte Esterase Urine Ascorbic Acid 06/12/19 16:09 RBC Hgb Hct RDW Seg Neuts % (Manual) Lymphocytes % (Manual) Abs Neuts (Manual) Potassium Chloride Carbon Dioxide Anion Gap BUN Est GFR (MDRD) Non-Af Glucose Calcium NT-Pro-B Natriuret Pep Total Protein Albumin Urine Nitrite POSITIVE H Urine Urobilinogen 4.0 H Ur Leukocyte Esterase MODERATE H Urine Ascorbic Acid 20 H - EKG Interpretation by Me EKG shows normal: Sinus rhythm Rhythm: NSR Nye/QRS: RBBB When compared to previous EKG there are: No significant change Discharge - Discharge Clinical Impression: COPD exacerbation, Acute UTI (urinary tract infection) Condition: Stable Disposition: HOME, SELF-CARE Instructions: Urinary Tract Infection ([facility]), Nitrofurantoin ([facility]) Additional Instructions: Push fluids (i.e. water, cranberry juice) Proper hygenic technique Keep the skin clean Tylenol/ibuprofen as needed Take medications as directed F/u with your PCM in 2-3 days for a recheck Return to the ED with any worsening symptoms and/or development of fever, headache, chest pain, palpitations, syncope, shortness of breath, trouble breathing, abdominal pain, n/v/d, blood in stool/urine, loss of control of bowel/bladder, urinary retention, or other worsening symptoms that are concerning to you. Prescriptions: Nitrofurantoin/Nitrofuran Mac [Macrobid 100 mg Capsule] 1 tab PO BID #20 capsule Forms: Elevated Blood Pressure Referrals: ARASELI AGUILAR MD [Primary Care Provider] - 06/14/19
[2019-06-12] MEDS ORDERED: IPRATROPIUM/ALBUTEROL 0.5-2.5 MG/3 ML AMPUL NEB ONE (13:07)
[2019-06-12] MEDS ORDERED: METHYLPREDNISOLONE INJ 125 MG/2 ML SDV IV ONE (13:07)
[2019-06-12] MEDS ORDERED: MAGNESIUM SULFATE/D5W 1 GM/100 ML RTUPB IV ONE ×2 (13:08)
--- NOTE | 2019-06-12 13:29 | RADIOLOGY REPORT (SQ) ---
EXAM DESCRIPTION: CHEST SINGLE VIEW COMPLETED DATE/TIME: 06/12/2019 1:21 pm REASON FOR STUDY: bed 12 db COMPARISON: 06/04/2019 EXAM PARAMETERS: NUMBER OF VIEWS: One view. TECHNIQUE: Single frontal radiographic view of the chest acquired. RADIATION DOSE: NA LIMITATIONS: None. FINDINGS: LUNGS AND PLEURA: No opacities, masses or pneumothorax. No pleural effusion. MEDIASTINUM AND HILAR STRUCTURES: Scarring in the right hilum remains. HEART AND VASCULAR STRUCTURES: Heart normal in size. Normal vasculature. BONES: No acute findings. HARDWARE: None in the chest. OTHER: No other significant finding. IMPRESSION: No interval change in the chest. Scarring in the right hilum. TECHNICAL DOCUMENTATION: JOB ID: [id number] [employer]- All Rights Reserved Reading location - IP/workstation name: [email or web address]
[2019-06-12 14:50] LABS: HEMOGLOBIN 10.3 g/dL (12.0-15.5); MEAN CORPUSCULAR HEMOGLOBIN 32.9 pg (27.0-33.4); MEAN CORPUSCULAR HGB CONC 34.5 g/dL (32.0-36.0); MEAN CORPUSCULAR VOLUME 95 fl (80-97); PLATELET COUNT 193 10^3/uL (150-450); RED BLOOD COUNT 3.15 10^6/uL (3.72-5.28)
[2019-06-12 15:11] LABS: ALBUMIN 3.3 g/dL (3.5-5.0); ALKALINE PHOSPHATASE 74 U/L (38-126); ASPARTATE AMINO TRANSFERASE 14 U/L (14-36); BILIRUBIN,TOTAL 0.3 mg/dL (0.2-1.3); BLOOD UREA NITROGEN 25 mg/dL (7-20); CALCIUM 10.7 mg/dL (8.4-10.2); CARBON DIOXIDE 39 mmol/L (22-30); CHLORIDE 95 mmol/L (98-107); GLUCOSE 184 mg/dL (75-110); POTASSIUM 3.3 mmol/L (3.6-5.0); TOTAL PROTEIN 5.7 g/dL (6.3-8.2)
[2019-06-12 15:15] LABS: ABSOLUTE LYMPHOCYTES# (MANUAL) 0.6 10^3/uL (0.5-4.7); ABSOLUTE MONOCYTES # (MANUAL) 0.4 10^3/uL (0.1-1.4); ANISOCYTOSIS 1+; BAND NEUTROPHILS % (MANUAL) 5 % (3-5); BASOPHILS % (MANUAL) 0 % (0-2); EOSINOPHILS % (MANUAL) 0 % (0-6); LYMPHOCYTES % (MANUAL) 6 % (13-45); MONOCYTES % (MANUAL) 4 % (3-13); PLATELET COMMENT ADEQUATE; SEGMENTED NEUTROPHILS % (MAN) 85 % (42-78); TEAR DROP CELLS 1+; TOTAL CELLS COUNTED 100
[2019-06-12 15:26] LABS: ANION GAP 4 (5-19)
[2019-06-12 15:32] LABS: TROPONIN I 0.044 ng/mL
[2019-06-12 16:25] LABS: APPEARANCE,URINE SLIGHTLY-CLOUDY; BILIRUBIN,URINE NEGATIVE (NEGATIVE); COLOR,URINE AMBER; GLUCOSE, URINE NEGATIVE (NEGATIVE); KETONES,URINE NEGATIVE (NEGATIVE); LEUKOCYTE ESTERASE,URINE MODERATE (NEGATIVE); NITRITE,URINE POSITIVE (NEGATIVE); PROTEIN,URINE NEGATIVE (NEGATIVE); URINE SPECIFIC GRAVITY 1.013
[2019-06-12] MEDS ORDERED: FLUCONAZOLE 100 MG TABLET PO ONE (16:34)
[2019-06-12] MEDS ORDERED: POTASSIUM CHLORIDE 10 MEQ CAPSULE.ER PO ONE (16:38)
[2019-06-12 17:01] VITALS: BP 133/76
--- NOTE | 2019-06-12 23:31 | EKG REPORT ---
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
--- NOTE | 2019-06-12 23:33 | EKG REPORT ---
SEVERITY:- ABNORMAL ECG - RBBB AND LAFB SINUS RHYTHM : Confirmed by: Susan Mishra MD 12-Jun-2019 23:31:37
== END 2019-06-12 17:15 | disposition home or self-care (01) ==
LOC: ER 12:19
DX: N39.0 Urinary tract infection, site not specified (principal); J44.1 Chronic obstructive pulmonary disease with (acute) exacerbation; I48.91 Unspecified atrial fibrillation; I50.9 Heart failure, unspecified; I25.10 Atherosclerotic heart disease of native coronary artery without angina pectoris; I11.0 Hypertensive heart disease with heart failure; Z88.0 Allergy status to penicillin; Z88.3 Allergy status to other anti-infective agents; Z90.49 Acquired absence of other specified parts of digestive tract; Z79.82 Long term (current) use of aspirin; Z85.118 Personal history of other malignant neoplasm of bronchus and lung; Z85.841 Personal history of malignant neoplasm of brain
CPT/HCPCS: 93005; 36415; 84443; 85025; 80053; 81001; 84484; 83880; 71045; 93010; J2930; J3475; A9270 ×3; J7620

== ENCOUNTER 2019-07-07 17:29 | Inpatient (IN) | payer MEDICARE, OTHER ==
[2019-07-07] MEDS ORDERED: IPRATROPIUM/ALBUTEROL 0.5-2.5 MG/3 ML AMPUL NEB ONE (18:31)
[2019-07-07] MEDS ORDERED: METHYLPREDNISOLONE INJ 125 MG/2 ML SDV IV ONE (18:31)
--- NOTE | 2019-07-07 18:38 | ER Document Report ---
ED General - General TRAVEL OUTSIDE OF THE [place] IN LAST 30 DAYS: No <ELAN YUSUF - Last Filed: 07/07/19 18:32> <NITESH ROBERTSON IV - Last Filed: 07/08/19 00:30> - General Chief Complaint: Chest Wall Pain Stated Complaint: CHEST WALL PAIN Time Seen by Provider: 07/07/19 17:49 Primary Care Provider: ARASELI AGUILAR MD [Primary Care Provider] - Follow up as needed - [facility] Notes: 73-year-old female with extremely complex medical history including severe oxygen/steroid-dependent COPD comes in today complaining of increased difficulty with breathing and coughing up green sputum. This is accompanied by low-grade fever. Feels generally weak. Patient is mildly disoriented and is an extremely poor historian. (ELAN YUSUF) - Related Data Allergies/Adverse Reactions: azithromycin Allergy (Verified 12/30/18 17:18) cephalexin Allergy (Verified 12/30/18 17:18) Penicillins Allergy (Verified 12/30/18 17:18) amoxicillin [Amoxicillin] Adverse Reaction (Verified 12/30/18 17:18) visual hallucinations erythromycin base [Erythromycin Base] Adverse Reaction (Verified 12/30/18 17:18) visual hallucinations Potassium Clavulanate * [From Augmentin] Adverse Reaction (Verified 12/30/18 17:18) visual hallucinations Past Medical History - General Information source: Patient, Emergency Med Personnel - Social History Smoking Status: Former Smoker Frequency of alcohol use: None Drug Abuse: None - Either way is Lives with: Family Family History: COPD, Malignancy - Lung cancer - Past Medical History Cardiac Medical History: Reports: Hx Atrial Fibrillation, Hx Congestive Heart Failure, Hx Coronary Artery Disease, Hx Heart Attack, Hx Hypertension Denies: Hx DVT, Hx Hypercholesterolemia, Hx Pulmonary Embolism Pulmonary Medical History: Reports: Hx Asthma, Hx Bronchitis, Hx COPD, Hx Pneumonia, Hx Respiratory Failure - Chronic respiratory failure Denies: Hx Sleep Apnea, Hx Tuberculosis Neurological Medical History: Denies: Hx Seizures, Hx Parkinson's Disease Endocrine Medical History: Reports: Hx Diabetes Mellitus Type 2, Hx H ypothyroidism. 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 Denies: Hx Cirrhosis, Hx Hepatitis, Hx Ulcer Musculoskeletal Medical History: Reports Hx Arthritis, Reports Hx Gout, Denies Hx Multiple Sclerosis, Reports Hx Musculoskeletal Deformity, Reports Hx Musculoskeletal Trauma Skin Medical History: Denies Hx Eczema, Denies Hx Psoriasis Psychiatric Medical History: Reports: Hx Dementia, Hx Depression Denies: Hx Bipolar Disorder, Hx Schizophrenia Infectious Medical History: Reports: Hx C-Diff. Denies: Hx Hepatitis Past Surgical History: Reports: Hx Cholecystectomy, Hx Orthopedic Surgery - Foot surgery, Other - Bilateral cataract surgery - Immunizations Immunizations up to date: Yes Hx Diphtheria, Pertussis, Tetanus Vaccination: Yes Hx Pneumococcal Vaccination: 08/30/12 <ELAN YUSUF - Last Filed: 07/07/19 18:32> Review of Systems - Review of Systems -: Yes ROS unobtainable due to patient's medical condition <ELAN YUSUF - Last Filed: 07/07/19 18:32> Physical Exam <ELAN YUSUF - Last Filed: 07/07/19 18:32> - Vital signs Vitals: Temp Pulse Resp BP Pulse Ox 99.0 F 102 H 23 H 136/82 H 100 07/07/19 17:30 07/07/19 17:30 07/07/19 17:30 07/07/19 17:30 07/07/19 17:30 - Notes Notes: GENERAL: Frail elderly female who appears visibly dyspneic. Audible wheezes without stethoscope. Appears acutely and chronically ill. SKIN: Pale with widespread ecchymoses all 4 extremities. HEAD: Normocephalic atraumatic. EYES: PERRLA. Conjunctivae and sclerae clear. EARS: CANALS AND TMS CLEAR. NOSE: CLEAR. MOUTH: Dry oral mucosa. Dentures present. No stridor or edema. No drooling. NECK: Supple. No masses or thyromegaly. No adenopathy. Carotids 2+ without bruits. No JVD. BACK: Symmetrical without tenderness. CHEST: Mild use of accessory muscles. Deep rattling cough. Patient is producing green sputum. She has diffuse wheezes and scattered rhonchi bilaterally . HEART: Regular rhythm. No murmur gallop or rub. ABDOMEN: Soft nontender without masses, organomegaly or rebound. Bowel sounds normally active. No bruits. GENITALIA: Deferred. EXTREMITIES: 1+ pretibial edema. No calf tenderness. Cap refill less than 1.5 seconds. Dorsalis pedis and posterior tibial pulses 2 + and symmetrical. NEUROLOGICAL: GCS 14. Alert and oriented to person and place but disoriented to day and date. Fluent speech. Cranial nerves II through XII intact. No focal motor or sensory deficit appreciated. Normal tone. (ELAN YUSUF) Course - Laboratory Result Diagrams: 07/07/19 22:10 07/07/19 19:53 - Diagnostic Test Radiology reviewed: Reports reviewed <NITESH ROBERTSON IV - Last Filed: 07/08/19 00:30> - Re-evaluation Re-evalutation: 07/08/19 00:[address] Contreras, hospitalist. He requested that the patient be put on BiPAP. This MD went into the room to inform the patient that Dr. Contreras wants her on BiPAP. She did not seem particularly happy about this but is willing to comply. (NITESH ROBERTSON IV) - Vital Signs Vital signs: Temp Pulse Resp BP Pulse Ox 98.9 F 102 H 18 144/88 H 100 07/08/19 00:25 07/07/19 17:30 07/08/19 00:01 07/08/19 00:00 07/08/19 00:01 - Laboratory Laboratory results interpreted by me: 07/07/19 07/07/19 07/07/19 19:25 19:53 22:10 WBC 12.6 H RBC 2.80 L Hgb 9.0 L Hct 26.7 L RDW 16.4 H Band Neutrophils % 11 H Lymphocytes % (Manual) 9 L Abs Neuts (Manual) 11.1 H Carbonic Acid 1.84 H ABG pCO2 61.0 H ABG pO2 59.3 L ABG HCO3 36.6 H ABG Total CO2 38.5 H ABG O2 Saturation 89.9 L Carbon Dioxide 35 H Direct Bilirubin 0.5 H Total Protein 5.9 L Albumin 3.1 L Discharge <ELNA YUSUF - Last Filed: 07/07/19 18:32> - Discharge Admitting Provider: Ben (Hospitalist) <NITESH ROBERTSON IV - Last Filed: 07/08/19 00:30> - Discharge Clinical Impression: COPD exacerbation Condition: Fair Disposition: ADMITTED OBSERVATION Referrals: ARASELI AGUILAR MD [Primary Care Provider] - Follow up as needed
--- NOTE | 2019-07-07 19:06 | RADIOLOGY REPORT (SQ) ---
EXAM DESCRIPTION: CHEST SINGLE VIEW COMPLETED DATE/TIME: 07/07/2019 6:56 pm REASON FOR STUDY: cough, fever COMPARISON: 06/12/2019 TECHNIQUE: Single frontal radiographic view of the chest acquired. NUMBER OF VIEWS: One view. LIMITATIONS: None. FINDINGS: LUNGS AND PLEURA: No pneumothorax. Similar right scarring -architectural distortion in th e right hilus. No consolidation. Small left pleural effusion. MEDIASTINUM AND HILAR STRUCTURES: Stable. HEART AND VASCULAR STRUCTURES: Stable. BONES: No acute findings. HARDWARE: None in the chest. OTHER: No other significant finding. IMPRESSION: Similar right scarring -architectural distortion in the right hilus. No consolidation. Small left pleural effusion. TECHNICAL DOCUMENTATION: JOB ID: [id number] [id number] 2010 [employer]- All Rights Reserved Reading location - IP/workstation name: [email or web address]
[2019-07-07 19:53] LABS: ARTERIAL BLOOD BASE EXCESS 10.1 mmol/L; ARTERIAL BLOOD FIO2 2L; ARTERIAL BLOOD H2CO3 1.84 mmol/L (1.05-1.35); ARTERIAL BLOOD HCO3 36.6 mmol/L (20-24); ARTERIAL BLOOD O2 SATURATION 89.9 % (94-98); ARTERIAL BLOOD PO2 59.3 mmHg (80-100); ARTERIAL BLOOD TOTAL CO2 38.5 mmol/L (21-25)
[2019-07-07] MEDS ORDERED: LEVOFLOXACIN 750 MG/D5W RTU 750 MG/150 ML RTUPB IV ONE ×2 (20:30→23:00)
[2019-07-07 20:49] LABS: ALBUMIN 3.1 g/dL (3.5-5.0); ALKALINE PHOSPHATASE 61 U/L (38-126); ASPARTATE AMINO TRANSFERASE 30 U/L (14-36); BILIRUBIN,DIRECT 0.5 mg/dL (0.0-0.4); BILIRUBIN,TOTAL 0.8 mg/dL (0.2-1.3); BLOOD UREA NITROGEN 12 mg/dL (7-20); CALCIUM 8.5 mg/dL (8.4-10.2); GLUCOSE 101 mg/dL (75-110); POTASSIUM 4.4 mmol/L (3.6-5.0); TOTAL PROTEIN 5.9 g/dL (6.3-8.2)
[2019-07-07 21:25] LABS: CARBON DIOXIDE 35 mmol/L (22-30); CHLORIDE 102 mmol/L (98-107)
[2019-07-07 21:27] LABS: ANION GAP 5 (5-19)
[2019-07-07 21:36] LABS: PROTHROMBIN TIME 13.2 SEC (11.4-15.4)
[2019-07-07 21:37] LABS: PARTIAL THROMBOPLASTIN TIME 24.9 SEC (23.5-35.8)
[2019-07-07 22:45] LABS: HEMATOCRIT 26.7 % (36.0-47.0); MEAN CORPUSCULAR HEMOGLOBIN 32.2 pg (27.0-33.4); MEAN CORPUSCULAR HGB CONC 33.7 g/dL (32.0-36.0); MEAN CORPUSCULAR VOLUME 95 fl (80-97); PLATELET COUNT 270 10^3/uL (150-450); RED CELL DISTRIBUTION WIDTH 16.4 % (11.5-14.0); WHITE BLOOD COUNT 12.6 10^3/uL (4.0-10.5)
[2019-07-07 23:13] LABS: ABSOLUTE LYMPHOCYTES# (MANUAL) 1.1 10^3/uL (0.5-4.7); ABSOLUTE MONOCYTES # (MANUAL) 0.4 10^3/uL (0.1-1.4); ANISOCYTOSIS 2+; BAND NEUTROPHILS % (MANUAL) 11 % (3-5); BASOPHILS % (MANUAL) 0 % (0-2); EOSINOPHILS % (MANUAL) 0 % (0-6); LYMPHOCYTES % (MANUAL) 9 % (13-45); MONOCYTES % (MANUAL) 3 % (3-13); PLATELET COMMENT ADEQUATE; POLYCHROMASIA 1+; SEGMENTED NEUTROPHILS % (MAN) 77 % (42-78); TOTAL CELLS COUNTED 100
--- NOTE | 2019-07-07 23:42 | EKG REPORT ---
SEVERITY:- ABNORMAL ECG - SINUS TACHYCARDIA RIGHT BUNDLE BRANCH BLOCK : Confirmed by: Susan Mishra MD 07-Jul-2019 23:42:43
[2019-07-08] MEDS ORDERED: VANCOMYCIN HCL 0 MG in DEXTROSE 5%-WATER 250 ML IV NR (01:00)
[2019-07-08 01:01] LABS: APPEARANCE,URINE TURBID; BILIRUBIN,URINE NEGATIVE (NEGATIVE); COLOR,URINE YELLOW; GLUCOSE, URINE NEGATIVE (NEGATIVE); KETONES,URINE NEGATIVE (NEGATIVE); PROTEIN,URINE 100 mg/dL (NEGATIVE); URINE SPECIFIC GRAVITY 1.008; UROBILINOGEN,URINE NEGATIVE mg/dL (<2.0)
[2019-07-08] MEDS ORDERED: IPRATROPIUM/ALBUTEROL 0.5-2.5 MG/3 ML AMPUL NEB PRN (01:02)
[2019-07-08] MEDS ORDERED: VANCOMYCIN HCL INJ 1000 MG VIAL IV PRN (01:12)
[2019-07-08] MEDS ORDERED: VANCOMYCIN HCL 1,500 MG in DEXTROSE 5%-WATER 250 ML IV ONE (01:15)
[2019-07-08] MEDS ORDERED: CEFEPIME 1 GM/D5W RTU 1 GM/50 ML RTUPB IV ONE (01:30)
[2019-07-08] MEDS: IPRATROPIUM/ALBUTEROL 0.5-2.5 MG/3 ML AMPUL NEB SCH ×4 (02:52→20:46)
[2019-07-08] MEDS: NORMAL SALINE 1000 ML 1,000 ML IV PRN ×2 (03:49→10:58)
--- NOTE | 2019-07-08 04:33 | PDOC H&P ---
History of Present Illness Admission Date/PCP: 07/08/19 01:14 ARASELI AGUILAR MD Patient complains of: Shortness of breath History of Present Illness: TRENTON MCCOY is a 73 year old female with a past medical history of diabetes, hypertension, obstructive sleep apnea, chronic respiratory failure, oxygen and steroid-dependent COPD, recurrent ESBL E. coli UTI, dementia and debility. She presents to the emergency room with 12 hours of nonproductive cough, shortness of breath and wheeze. In the emergency room she is found to have tachypnea, leukocytosis, PCO2 of 60 and hypoxia by ABG chest x-ray shows unchanged right hilar scarring. She started on empiric antibiotics, BiPAP and referred to the hospitalist for admission. Patient denies recent change in medication regiment and denies rhinorrhea, sore throat or uncontrolled acid reflux. Past Medical History Cardiac Medical History: Reports: Atrial Fibrillation, Congestive Heart Failure, Coronary Artery Disease, Myocardial Infarction, Hypertension Denies: DVT, Hyperlipidema, Pulmonary Embolism Pulmonary Medical History: Reports: Asthma, Bronchitis, Chronic Obstructive Pulmonary Disease (COPD), Pneumonia, Respiratory Failure - Chronic respiratory failure, Sleep Apnea Denies: Tuberculosis Neurological Medical History: Denies: Seizures Endocrine Medical History: Reports: Diabetes Mellitus Type 2, Hypothyroidism Denies: Diabetes Mellitus Type 1, Hyperthyroidism Renal/ Medical History: Denies: End Stage Renal Disease Malignancy Medical History: Reports: Brain Cancer - Lung cancer with brain metastases, Breast Cancer, 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 GI Medical History: Reports: Gastroesophageal Reflux Disease Denies: Cirrhosis, Hepatitis Musculoskeltal Medical History: Reports: Arthritis, Gout Skin Medical History: Denies: Eczema, Psoriasis Psychiatric Medical History: Reports: Dementia, Depression Denies: Bipolar Disorder Hematology: Reports: Anemia, Bleeding Tendencies Infectious Medical History: Reports: Clostridium Difficile Past Surgical History Past Surgical History: Reports: Cholecystectomy, Orthopedic Surgery - Foot surgery, Other - Bilateral cataract surgery Social History Information Source: Patient, [facility] Records Lives with: Family Smoking Status: Former Smoker Electronic Cigarette use?: No Frequency of Alcohol Use: None Hx Recreational Drug Use: No Drugs: None Hx Prescription Drug Abuse: No - Advance Directive Resuscitation Status: Full Code Family History Family History: COPD, Malignancy - Lung cancer Parental Family History Reviewed: Yes Children Family History Reviewed: Yes Sibling(s) Family History Reviewed.: Yes Medication/Allergy Home Medications: Albuterol Sulfate [Ventolin 0.083% Neb 2.5 mg/3 mL Ampul] 1 vial NEB RTTID 05/21/19 Budesonide/Formoterol Fumarate [Symbicort HFA 160-4.5 mcg Inhaler 6 gm] 2 puff IH Q12 05/21/19 Ipratropium/Albuterol Sulfate [Duoneb 3 ml Ampul] 3 ml NEB RTQID 05/21/19 Levothyroxine Sodium 50 mcg PO Q6AM 05/21/19 Lorazepam [Ativan 1 mg Tablet] 0.5 mg PO BID 05/21/19 Nystatin [Mycostatin Topical Powder 15 gm] 1 applic TP QID 05/21/19 Prednisone [Deltasone 10 mg Tablet] 10 mg PO DAILY 05/21/19 Potassium Chloride [Klor-Con 10 Meq Tablet ER] 20 meq PO Q12 #60 capsule.er 05/30/19 Ciprofloxacin HCl [Cipro 500 mg Tablet] 500 mg PO BID #14 tablet 06/05/19 Metronidazole [Flagyl 500 mg Tablet] 500 mg PO Q6H #28 tablet 06/05/19 Saccharomyces Boulardii [Florastor] 250 mg PO BID #20 capsule 06/05/19 Nitrofurantoin/Nitrofuran Mac [Macrobid 100 mg Capsule] 1 tab PO BID #20 capsule 06/12/19 Allergies/Adverse Reactions: azithromycin Allergy (Verified 12/30/18 17:18) cephalexin Allergy (Verified 12/30/18 17:18) Penicillins Allergy (Verified 12/30/18 17:18) amoxicillin [Amoxicillin] Adverse Reaction (Verified 12/30/18 17:18) visual hallucinations erythromycin base [Erythromycin Base] Adverse Reaction (Verified 12/30/18 17:18) visual hallucinations Potassium Clavulanate * [From Augmentin] Adverse Reaction (Verified 12/30/18 17:18) visual hallucinations Review of Systems Constitutional: ABSENT: chills, fever(s), headache(s), weight gain, weight loss Eyes: ABSENT: visual disturbances Ears: ABSENT: hearing changes Cardiovascular: ABSENT: chest pain, dyspnea on exertion, edema, orthropnea, palpitations Respiratory: ABSENT: cough, hemoptysis Gastrointestinal: ABSENT: abdominal pain, constipation, diarrhea, hematemesis, hematochezia, nausea, vomiting Genitourinary: ABSENT: dysuria, hematuria Musculoskeletal: ABSENT: joint swelling Integumentary: ABSENT: rash, wounds Neurological: ABSENT: abnormal gait, abnormal speech, confusion, dizziness, focal weakness, syncope Psychiatric: ABSENT: anxiety, depression, homidical ideation, suicidal ideation Endocrine: ABSENT: cold intolerance, heat intolerance, polydipsia, polyuria Hematologic/Lymphatic: ABSENT: easy bleeding, easy bruising Physical Exam Vital Signs: Temp Pulse Resp BP Pulse Ox 98.9 F 102 H 16 144/88 H 97 07/08/19 00:25 07/07/19 17:30 07/08/19 01:04 07/08/19 00:00 07/08/19 04:00 Intake & Output 07/06/19 07/07/19 07/08/19 11:59 11:59 11:59 Intake Total 200 Balance 200 Weight 82.5 kg General appearance: PRESENT: cooperative, disheveled, mild distress, obese, well-developed, well-nourished Head exam: PRESENT: atraumatic, normocephalic Eye exam: PRESENT: conjunctiva pink, EOMI, PERRLA. ABSENT: scleral icterus Ear exam: PRESENT: normal external ear exam Mouth exam: PRESENT: moist, tongue midline Neck exam: ABSENT: carotid bruit, JVD, lymphadenopathy, thyromegaly Respiratory exam: PRESENT: accessory muscle use, crackles, prolonged expiratory phas, retraction, symmetrical, tachypnea, wheezes Cardiovascular exam: PRESENT: RRR. ABSENT: diastolic murmur, rubs, systolic murmur Pulses: PRESENT: normal dorsalis pedis pul Vascular exam: PRESENT: normal capillary refill GI/Abdominal exam: PRESENT: normal bowel sounds, soft. ABSENT: distended, guarding, mass, organolmegaly, rebound, tenderness Rectal exam: PRESENT: deferred Extremities exam: PRESENT: full ROM. ABSENT: calf tenderness, clubbing, pedal edema Neurological exam: PRESENT: alert, awake, oriented to person, oriented to place, oriented to time, oriented to situation, CN II-XII grossly intact. ABSENT: motor sensory deficit Psychiatric exam: PRESENT: appropriate affect, normal mood. ABSENT: homicidal ideation, suicidal ideation Skin exam: PRESENT: dry, intact, warm. ABSENT: cyanosis, rash Results Laboratory Results: 07/07/19 22:10 07/07/19 19:53 07/07/19 07/07/19 07/07/19 19:25 19:53 19:53 WBC Cancelled RBC Cancelled Hgb Cancelled Hct Cancelled MCV Cancelled MCH Cancelled MCHC Cancelled RDW Cancelled Plt Count Cancelled Seg Neutrophils % Cancelled Carbonic Acid 1.84 H HCO3/H2CO3 Ratio 19:1 ABG pH 7.40 ABG pCO2 61.0 H ABG pO2 59.3 L ABG HCO3 36.6 H ABG O2 Saturation 89.9 L ABG Base Excess 10.1 FiO2 2L Sodium 142.3 Potassium 4.4 Chloride 102 Carbon Dioxide 35 H Anion Gap 5 BUN 12 Creatinine 0.89 Est GFR ( Amer) > 60 Glucose 101 Calcium 8.5 Magnesium 1.9 Total Bilirubin 0.8 AST 30 Alkaline Phosphatase 61 Total Protein 5.9 L Albumin 3.1 L Urine Color Urine Appearance Urine pH Ur Specific Tatum Urine Protein Urine Glucose (UA) Urine Ketones Urine Blood Urine RBC (Auto) 07/07/19 07/08/19 22:10 00:44 WBC 12.6 H RBC 2.80 L Hgb 9.0 L Hct 26.7 L MCV 95 MCH 32.2 MCHC 33.7 RDW 16.4 H Plt Count 270 Seg Neutrophils % Not Reportable Carbonic Acid HCO3/H2CO3 Ratio ABG pH ABG pCO2 ABG pO2 ABG HCO3 ABG O2 Saturation ABG Base Excess FiO2 Sodium Potassium Chloride Carbon Dioxide Anion Gap BUN Creatinine Est GFR ( Amer) Glucose Calcium Magnesium Total Bilirubin AST Alkaline Phosphatase Total Protein Albumin Urine Color YELLOW Urine Appearance TURBID Urine pH 5.0 Ur Specific Tatum 1.008 Urine Protein 100 H Urine Glucose (UA) NEGATIVE Urine Ketones NEGATIVE Urine Blood SMALL H Urine RBC (Auto) 2 07/07/19 19:53 Troponin I 0.015 Impressions: Chest X-Ray 07/07/19 18:30 IMPRESSION: Similar right scarring -architectural distortion in the right hilus. No consolidation. Small left pleural effusion. Assessment and Plan - Diagnosis (1) Pneumonia Qualifiers: Is this a current diagnosis for this admission?: Yes Plan: Pneumonia care set deployed, cefepime and vancomycin for recent healthcare expos ure, BiPAP, incentive spirometry, flutter valve. Follow-up blood culture and CBC (2) COPD exacerbation Is this a current diagnosis for this admission?: Yes Plan: Supplemental oxygen, BiPAP, flutter valve ordered (3) Diastolic CHF, chronic Is this a current diagnosis for this admission?: Yes Plan: Optimize volume pressure and rate. - Time Time Spent with patient: 25-34 minutes - Inpatient Certification Medical Necessity: Need Close Monitoring Due to Risk of Patient Decompensation
[2019-07-08] MEDS ORDERED: CEFEPIME 1 GM/D5W RTU 0 GM/0 ML RTUPB IV ONE (05:38)
[2019-07-08] MEDS: HEPARIN SOD (PORCINE) 5,000 UNIT/ML 1 ML VIAL SUBCUT SCH ×3 (06:18→22:10)
[2019-07-08] MEDS: METHYLPREDNISOLONE INJ 40 MG/1 ML SDV IV SCH ×2 (13:13→22:10)
[2019-07-08] MEDS: ACETAMINOPHEN 325 MG TABLET PO PRN ×2 (13:15→19:23)
--- NOTE | 2019-07-08 16:09 | Progress Note ---
Provider Note Provider Note: Cora Diallo is a 73-year-old female with a past medical history of diabetes, hypertension, obstructive sleep apnea, chronic respiratory failure, oxygen and steroid-dependent COPD, recurrent ESBL E. coli UTIs, hypothyroidism, GERD, dementia, and debility who was admitted early this morning by the tab cutter for acute on chronic respiratory failure secondary to community-acquired healthcare associated pneumonia and COPD exacerbation. Overnight events, vital signs, laboratory results, imaging reports, and orders reviewed. Agree with plan of care as established by the previous provider. The patient was briefly seen on morning rounds. She was found sitting up in bed, comfortably, on supplemental oxygen via nasal cannula. She is alert and oriented x4 and at her baseline mental and functional status. She reports that she came to the emergency department due to chest discomfort and was scheduled to have an evaluation of her stomach this week. She is unable to tell me what testing was meant to be done. Nursing does note that she has had an episode of emesis following p.o. intake multiple times today. Have added speech therapy evaluation. Have ordered a nuclear medicine Gastric emptying study.
[2019-07-08] MEDS: CEFEPIME 1 GM/D5W RTU 1 GM/50 ML RTUPB IV SCH (17:10)
[2019-07-09] MEDS: IPRATROPIUM/ALBUTEROL 0.5-2.5 MG/3 ML AMPUL NEB SCH ×4 (02:22→20:46)
[2019-07-09] MEDS: HEPARIN SOD (PORCINE) 5,000 UNIT/ML 1 ML VIAL SUBCUT SCH ×3 (05:10→22:19)
[2019-07-09] MEDS: METHYLPREDNISOLONE INJ 40 MG/1 ML SDV IV SCH ×3 (05:10→22:19)
[2019-07-09] MEDS: CEFEPIME 1 GM/D5W RTU 1 GM/50 ML RTUPB IV SCH ×2 (05:10→17:08)
[2019-07-09] MEDS: VANCOMYCIN HCL 1,500 MG in DEXTROSE 5%-WATER 250 ML IV SCH (05:11)
[2019-07-09 06:07] LABS: HEMATOCRIT 24.8 % (36.0-47.0); HEMOGLOBIN 8.4 g/dL (12.0-15.5); MEAN CORPUSCULAR HEMOGLOBIN 32.4 pg (27.0-33.4); MEAN CORPUSCULAR HGB CONC 33.7 g/dL (32.0-36.0); MEAN CORPUSCULAR VOLUME 96 fl (80-97); PLATELET COUNT 278 10^3/uL (150-450); RED BLOOD COUNT 2.57 10^6/uL (3.72-5.28); WHITE BLOOD COUNT 10.2 10^3/uL (4.0-10.5)
[2019-07-09 06:21] LABS: ANION GAP 7 (5-19); BLOOD UREA NITROGEN 17 mg/dL (7-20); CARBON DIOXIDE 31 mmol/L (22-30); CHLORIDE 105 mmol/L (98-107); GLUCOSE 182 mg/dL (75-110); POTASSIUM 4.3 mmol/L (3.6-5.0)
[2019-07-09 06:43] LABS: ABSOLUTE LYMPHOCYTES# (MANUAL) 0.6 10^3/uL (0.5-4.7); ABSOLUTE MONOCYTES # (MANUAL) 0.3 10^3/uL (0.1-1.4); ANISOCYTOSIS SLIGHT; BAND NEUTROPHILS % (MANUAL) 1 % (3-5); BASOPHILS % (MANUAL) 0 % (0-2); EOSINOPHILS % (MANUAL) 0 % (0-6); LYMPHOCYTES % (MANUAL) 6 % (13-45); MONOCYTES % (MANUAL) 3 % (3-13); PLATELET COMMENT ADEQUATE; SEGMENTED NEUTROPHILS % (MAN) 90 % (42-78); TOTAL CELLS COUNTED 100
[2019-07-09] MEDS: SERTRALINE HCL 50 MG TABLET PO SCH (09:41)
[2019-07-09] MEDS: FUROSEMIDE 20 MG TABLET PO SCH (09:41)
[2019-07-09] MEDS: LEVOTHYROXINE SODIUM 0.05 MG TABLET PO SCH (09:41)
--- NOTE | 2019-07-09 10:15 | RADIOLOGY REPORT (SQ) ---
EXAM DESCRIPTION: NM GASTRIC EMPTYING STUDY COMPLETED DATE/TIME: 07/09/2019 9:36 am REASON FOR STUDY: frequent postprandial emesis COMPARISON: None. RADIONUCLIDE AND DOSE: 2.15 millicuries Tc-99m Sulfur Colloid. A wide variety of solid foods have been used. The route of agent administration: Oral. TECHNIQUE: 1 minute serial static imaging performed at time of meal. Image intensity values plotted with respect to time with linear regression algorithm. LIMITATIONS: None. FINDINGS: Patient vomited prior to the immediate picture. Nondiagnostic exam. IMPRESSION: Nondiagnostic gastric emptying exam. Patient vomited prior to image acquisition. Ordering provider was notified at the time of the exam. Exam will be reattempted at a later date. TECHNICAL DOCUMENTATION: JOB ID: [id number] [employer]- All Rights Reserved Reading location - IP/workstation name: [email or web address]
--- NOTE | 2019-07-09 10:25 | PDOC PROGRESS REPORT ---
Subjective Progress Note for:: 07/09/19 Reason For Visit: HYPERCAPNIC RESP FAILURE PNUEMONIA 07/09/2019 Patient seen for community-acquired pneumonia and COPD exacerbation Physical Exam Vital Signs: Temp Pulse Resp BP Pulse Ox 98.0 F 101 H 20 124/73 99 07/09/19 07:39 07/09/19 08:12 07/09/19 08:12 07/09/19 07:39 07/09/19 08:12 Intake & Output 07/08/19 07/09/19 07/10/19 06:59 06:59 06:59 Intake Total 200 2468 Output Total 0 800 Balance 200 1668 Weight 77.6 kg 84.4 kg General appearance: PRESENT: no acute distress, other - Speaking in full sentences just finished a breathing treatment Respiratory exam: PRESENT: wheezes - Both inspiratory and expiratory Cardiovascular exam: PRESENT: RRR. ABSENT: diastolic murmur, rubs, systolic murmur Neurological exam: PRESENT: alert, awake, oriented to person, oriented to place, oriented to time, oriented to situation, CN II-XII grossly intact, other - Patient is awake alert speaking in full sentences. ABSENT: motor sensory deficit Psychiatric exam: PRESENT: appropriate affect, normal mood. ABSENT: homicidal ideation, suicidal ideation Results Laboratory Results: 07/09/19 05:08 07/09/19 05:08 07/09/19 07/09/19 05:08 05:08 WBC 10.2 RBC 2.57 L Hgb 8.4 L Hct 24.8 L MCV 96 MCH 32.4 MCHC 33.7 RDW 16.0 H Plt Count 278 Seg Neutrophils % Not Reportable Sodium 142.6 Potassium 4.3 Chloride 105 Carbon Dioxide 31 H Anion Gap 7 BUN 17 Creatinine 0.84 Est GFR ( Amer) > 60 Glucose 182 H Calcium 8.0 L 07/07/19 19:53 Troponin I 0.015 Impressions: Chest X-Ray 07/07/19 18:30 IMPRESSION: Similar right scarring -architectural distortion in the right hilus. No consolidation. Small left pleural effusion. Gastric Emptying Nuclear Medicine 07/09/19 00:00 IMPRESSION: Nondiagnostic gastric emptying exam. Patient vomited prior to image acquisition. Ordering provider was notified at the time of the exam. Exam will be reattempted at a later date. Assessment and Plan - Diagnosis (1) Acute exacerbation of chronic obstructive airways disease Is this a current diagnosis for this admission?: Yes (2) Acute bronchitis Qualifiers: Bronchitis organism: unspecified organism Qualified Code(s): J20.9 - Acute bronchitis, unspecified Is this a current diagnosis for this admission?: Yes (3) Chronic diastolic CHF (congestive heart failure) Is this a current diagnosis for this admission?: Yes - Plan Summary Summary: 07/09/2019 Admission chest x-ray shows no evidence of pneumonia. She is currently on cefepime and vancomycin for COPD exacerbation with bronchitis. Patient is also currently taking Solu-Medrol 40 mg IV every 8 hours Patient states that she feels better following nebulizer treatment White count this morning is still stable 10,200, electrolytes appear grossly normal. Lactic acid on admission was 0.7 Urine was mildly suspicious for UTI culture is pending Sputum is growing out preliminary gram-negative rods and gram-positive cocci, 1 blood cultures growing out gram-positive rods Continue pulmonary toiletry, continue IV antibiotics. Patient was scheduled for nuclear medicine gastric emptying study this morning but unfortunately vomited up her food. This will be put on hold for the present time Vital signs reveal temperature 98 pulse 105 blood pressure 124/73 O2 sat is 99% on 2 L nasal cannula - Time Time Spent with patient: 35 or more minutes
[2019-07-09] MEDS: PANTOPRAZOLE SODIUM 20 MG TABLET.DR PO SCH (18:09)
[2019-07-10] MEDS: IPRATROPIUM/ALBUTEROL 0.5-2.5 MG/3 ML AMPUL NEB SCH ×4 (02:03→19:32)
[2019-07-10] MEDS: LEVOTHYROXINE SODIUM 0.05 MG TABLET PO SCH (05:00)
[2019-07-10] MEDS: METHYLPREDNISOLONE INJ 40 MG/1 ML SDV IV SCH ×3 (05:02→22:48)
[2019-07-10] MEDS: CEFEPIME 1 GM/D5W RTU 1 GM/50 ML RTUPB IV SCH ×2 (05:03→17:10)
[2019-07-10] MEDS: VANCOMYCIN HCL 1,500 MG in DEXTROSE 5%-WATER 250 ML IV SCH (05:03)
[2019-07-10] MEDS: HEPARIN SOD (PORCINE) 5,000 UNIT/ML 1 ML VIAL SUBCUT SCH ×3 (05:03→22:48)
[2019-07-10] MEDS: PANTOPRAZOLE SODIUM 20 MG TABLET.DR PO SCH ×2 (05:04→17:12)
[2019-07-10] MEDS: FUROSEMIDE 20 MG TABLET PO SCH (09:15)
[2019-07-10] MEDS: SERTRALINE HCL 50 MG TABLET PO SCH (09:15)
--- NOTE | 2019-07-10 11:27 | PDOC PROGRESS REPORT ---
Subjective Progress Note for:: 07/10/19 Reason For Visit: HYPERCAPNIC RESP FAILURE PNUEMONIA 07/10/2019 Patient admitted for community-acquired pneumonia and COPD exacerbation. Patient has a history of chronic nausea and vomiting Physical Exam Vital Signs: Temp Pulse Resp BP Pulse Ox 97.2 F 104 H 20 158/90 H 97 07/10/19 07:39 07/10/19 08:25 07/10/19 08:25 07/10/19 08:04 07/10/19 08:25 Intake & Output 07/09/19 07/10/19 07/11/19 06:59 06:59 06:59 Intake Total 2518 1220 250 Output Total 800 500 Balance 1718 720 250 Weight 84.4 kg 83.9 kg General appearance: PRESENT: no acute distress, other - Sitting up in bed eating breakfast in no distress Respiratory exam: PRESENT: clear to auscultation jeff, wheezes. ABSENT: rales, rhonchi Cardiovascular exam: PRESENT: RRR. ABSENT: diastolic murmur, rubs, systolic murmur Neurological exam: PRESENT: alert, awake, oriented to person, oriented to place, oriented to time, oriented to situation, CN II-XII grossly intact. ABSENT: motor sensory deficit Psychiatric exam: PRESENT: appropriate affect, normal mood. ABSENT: homicidal ideation, suicidal ideation Results Laboratory Results: 07/09/19 05:08 07/09/19 05:08 07/07/19 19:55 Sputum Gram Stain - Final 07/07/19 19:53 Troponin I 0.015 Impressions: Chest X-Ray 07/07/19 18:30 IMPRESSION: Similar right scarring -architectural distortion in the right hilus. No consolidation. Small left pleural effusion. Gastric Emptying Nuclear Medicine 07/09/19 00:00 IMPRESSION: Nondiagnostic gastric emptying exam. Patient vomited prior to image acquisition. Ordering provider was notified at the time of the exam. Exam will be reattempted at a later date. Assessment and Plan - Diagnosis (1) Acute exacerbation of chronic obstructive airways disease Is this a current diagnosis for this admission?: Yes (2) Acute bronchitis Qualifiers: Bronchitis organism: unspecified organism Qualified Code(s): J20.9 - Acute bronchitis, unspecified Is this a current diagnosis for this admission?: Yes (3) Chronic diastolic CHF (congestive heart failure) Is this a current diagnosis for this admission?: Yes - Plan Summary Summary: 07/09/2019 Admission chest x-ray shows no evidence of pneumonia. She is currently on cef epime and vancomycin for COPD exacerbation with bronchitis. Patient is also currently taking Solu-Medrol 40 mg IV every 8 hours Patient states that she feels better following nebulizer treatment White count this morning is still stable 10,200, electrolytes appear grossly normal. Lactic acid on admission was 0.7 Urine was mildly suspicious for UTI culture is pending Sputum is growing out preliminary gram-negative rods and gram-positive cocci, 1 blood cultures growing out gram-positive rods Continue pulmonary toiletry, continue IV antibiotics. Patient was scheduled for nuclear medicine gastric emptying study this morning but unfortunately vomited up her food. This will be put on hold for the present time Vital signs reveal temperature 98 pulse 105 blood pressure 124/73 O2 sat is 99% on 2 L nasal cannula 07/10/2019 Pulse is anywhere from 110 high down to 70, blood pressure 134/74 O2 sat 99% on 2 L. Glucose is ranging anywhere from 100-200 Chest x-ray on admission is negative for pneumonia She has positive sputum cultures, patient currently on Maxipime every 12 hours, vancomycin daily, Solu-Medrol every 8 hours Started patient on Protonix yesterday for her nausea and vomiting. Alerted nursing that they are to witness patient's vomitus record frequency as well as substance. Patient is medically stable - Time Time Spent with patient: 25-34 minutes
[2019-07-10] MEDS: ACETAMINOPHEN 325 MG TABLET PO PRN (22:51)
[2019-07-11] MEDS: IPRATROPIUM/ALBUTEROL 0.5-2.5 MG/3 ML AMPUL NEB SCH ×4 (02:55→20:56)
[2019-07-11] MEDS: PANTOPRAZOLE SODIUM 20 MG TABLET.DR PO SCH ×2 (05:38→18:16)
[2019-07-11] MEDS: METHYLPREDNISOLONE INJ 40 MG/1 ML SDV IV SCH ×3 (05:38→21:03)
[2019-07-11] MEDS: HEPARIN SOD (PORCINE) 5,000 UNIT/ML 1 ML VIAL SUBCUT SCH ×3 (05:38→21:03)
[2019-07-11] MEDS: LEVOTHYROXINE SODIUM 0.05 MG TABLET PO SCH (05:38)
[2019-07-11] MEDS: VANCOMYCIN HCL 1,500 MG in DEXTROSE 5%-WATER 250 ML IV SCH (05:38)
[2019-07-11] MEDS: CEFEPIME 1 GM/D5W RTU 1 GM/50 ML RTUPB IV SCH (05:39)
[2019-07-11 06:52] LABS: VANCOMYCIN,TROUGH 19.1 ug/mL (5.0-20.0)
[2019-07-11] MEDS: FUROSEMIDE 20 MG TABLET PO SCH (08:55)
[2019-07-11] MEDS: SERTRALINE HCL 50 MG TABLET PO SCH (09:02)
--- NOTE | 2019-07-11 11:49 | PDOC PROGRESS REPORT ---
Subjective Progress Note for:: 07/11/19 Reason For Visit: HYPERCAPNIC RESP FAILURE PNUEMONIA 07/11/2019 She is admitted for COPD exacerbation nausea vomiting which is chronic and community-acquired pneumonia Physical Exam Vital Signs: Temp Pulse Resp BP Pulse Ox 97.6 F 103 H 18 158/80 H 100 07/11/19 08:07 07/11/19 08:07 07/11/19 08:07 07/11/19 08:07 07/11/19 08:07 Intake & Output 07/10/19 07/11/19 07/12/19 06:59 06:59 06:59 Intake Total 1270 1230 Output Total 500 1600 Balance 770 -370 Weight 83.9 kg 84.5 kg General appearance: PRESENT: no acute distress, other - Sleeping comfortably but arouses easily Respiratory exam: PRESENT: clear to auscultation jeff. ABSENT: rales, rhonchi, wheezes Cardiovascular exam: PRESENT: RRR. ABSENT: diastolic murmur, rubs, systolic murmur GI/Abdominal exam: PRESENT: normal bowel sounds, soft, other - No mention of vomiting in the nurses notes or in the I&O's. ABSENT: distended, guarding, mass, organolmegaly, rebound, tenderness Neurological exam: PRESENT: alert, awake, oriented to person, oriented to place, oriented to time, oriented to situation, CN II-XII grossly intact. ABSENT: motor sensory deficit Psychiatric exam: PRESENT: appropriate affect, normal mood. ABSENT: homicidal ideation, suicidal ideation Results Laboratory Results: 07/09/19 05:08 07/11/19 05:30 07/11/19 05:30 Creatinine 0.98 Est GFR ( Amer) > 60 07/07/19 19:55 Sputum Gram Stain - Final 07/07/19 19:55 Sputum Sputum Culture - Final Pseudomonas Aeruginosa Mrsa (Meth Resis Staph Aureus) Reduced Normal Jayshree 07/07/19 19:53 Blood Blood Culture - Final Bacillus Sp. Not Anthracis 07/07/19 19:53 Troponin I 0.015 Impressions: Chest X-Ray 07/07/19 18:30 IMPRESSION: Similar right scarring -architectural distortion in the right hilus. No consolidation. Small left pleural effusion. Gastric Emptying Nuclear Medicine 07/09/19 00:00 IMPRESSION: Nondiagnostic gastric emptying exam. Patient vomited prior to image acquisition. Ordering provider was notified at the time of the exam. Exam will be reattempted at a later date. Assessment and Plan - Diagnosis (1) Acute exacerbation of chronic obstructive airways disease Is this a current diagnosis for this admission?: Yes (2) Acute bronchitis Qualifiers: Bronchitis organism: unspecified organism Qualified Code(s): J20.9 - Acute bronchitis, unspecified Is this a current diagnosis for this admission?: Yes (3) Chronic diastolic CHF (congestive heart failure) Is this a current diagnosis for this admission?: Yes (4) Nausea vomiting, chronic Is this a current diagnosis for this admission?: Yes - Plan Summary Summary: 07/09/2019 Admission chest x-ray shows no evidence of pneumonia. She is currently on cefepime and vancomycin for COPD exacerbation with bronchitis. Patient is also currently taking Solu-Medrol 40 mg IV every 8 hours Patient states that she feels better following nebulizer treatment White count this morning is still stable 10,200, electrolytes appear grossly normal. Lactic acid on admission was 0.7 Urine was mildly suspicious for UTI culture is pending Sputum is growing out preliminary gram-negative rods and gram-positive cocci, 1 blood cultures growing out gram-positive rods Continue pulmonary toiletry, continue IV antibiotics. Patient was scheduled for nuclear medicine gastric emptying study this morning but unfortunately vomited up her food. This will be put on hold for the present time Vital signs reveal temperature 98 pulse 105 blood pressure 124/73 O2 sat is 99% on 2 L nasal cannula 07/10/2019 Pulse is anywhere from 110 high down to 70, blood pressure 134/74 O2 sat 99% on 2 L. Glucose is ranging anywhere from 100-200 Chest x-ray on admission is negative for pneumonia She has positive sputum cultures, patient currently on Maxipime every 12 hours, vancomycin daily, Solu-Medrol every 8 hours Started patient on Protonix yesterday for her nausea and vomiting. Alerted nursing that they are to witness patient's vomitus record frequency as well as substance. Patient is medically stable 07/11/2019 No record of vomiting in the nurses notes no record of vomiting in the I & O's Patient growing out Pseudomonas in sputum MRSA in the sputum. I am going to consult infectious disease since patient has been in and out of the hospital repeatedly lately, for pulmonary problems. Would be interested to know whether or not patient needs long-term IV antibiotics - Time Time Spent with patient: 25-34 minutes
[2019-07-11] MEDS ORDERED: CEFEPIME 1 GM/D5W RTU 1 GM/50 ML RTUPB IV ONE (13:30)
[2019-07-11] MEDS: ACETAMINOPHEN 325 MG TABLET PO PRN ×2 (14:22→20:51)
[2019-07-11] MEDS: CEFEPIME HCL 2 GM in DEXTROSE 5%-WATER 50 ML IV SCH (21:03)
[2019-07-12] MEDS: IPRATROPIUM/ALBUTEROL 0.5-2.5 MG/3 ML AMPUL NEB SCH ×4 (02:35→20:49)
[2019-07-12] MEDS: METHYLPREDNISOLONE INJ 40 MG/1 ML SDV IV SCH ×3 (05:12→21:13)
[2019-07-12] MEDS: LEVOTHYROXINE SODIUM 0.05 MG TABLET PO SCH (05:15)
[2019-07-12] MEDS: HEPARIN SOD (PORCINE) 5,000 UNIT/ML 1 ML VIAL SUBCUT SCH ×3 (05:15→21:13)
[2019-07-12] MEDS: VANCOMYCIN HCL 1,250 MG in DEXTROSE 5%-WATER 250 ML IV SCH (05:15)
[2019-07-12] MEDS: PANTOPRAZOLE SODIUM 20 MG TABLET.DR PO SCH ×2 (05:15→17:55)
[2019-07-12] MEDS: FUROSEMIDE 20 MG TABLET PO SCH (09:06)
[2019-07-12] MEDS: SERTRALINE HCL 50 MG TABLET PO SCH (09:06)
[2019-07-12] MEDS: CEFEPIME HCL 2 GM in DEXTROSE 5%-WATER 50 ML IV SCH ×2 (10:23→21:13)
--- NOTE | 2019-07-12 11:18 | Progress Note ---
Provider Note Provider Note: [facility] Telephone Advice Chart reviewed. This is a 73-year-old woman with extensive medical history including DM2, hypertension, STEPHANIE, chronic respiratory failure on home oxygen, COPD, atrial fibrillation, congestive heart failure, coronary artery disease, recurrent E coli ESBL UTIs who was admitted on 07/07 due to COPD exacerbation and hypoxemic/hypercapnic respiratory failure. Reviewing her chart, I found multiple cultures done in the past and she has been bacteremic with Streptococcus pneumoniae and MRSA in 2017 and 2018. She has had multiple sputum cultures positive with Streptococcus pneumoniae, Haemophilus influenzae, Moraxella catarrhalis, Pseudomonas and Stenotrophomonas. It is unclear if she had pneumonia every time these were done. Recent urine cultures grew E coli ESBL. On admission, she had hypoxemia and PCO2 up to 60. She was placed on BiPAP. Blood cultures with 1 set positive for Bacillus spp. Sputum positive for MRSA and Pseudomonas aeruginosa. CXR demonstrating scarring in right lung, small pleural effusion in the left side, no consolidation or infiltrate. She has been stable and doing better, she os on NC at 2lpm. Leukocytosis resolved. ID consulted for recommendations. Allergies azithromycin Allergy (Verified 12/30/18 17:18) cephalexin Allergy (Verified 12/30/18 17:18) Penicillins Allergy (Verified 12/30/18 17:18) amoxicillin [Amoxicillin] Adverse Reaction (Verified 12/30/18 17:18) visual hallucinations erythromycin base [Erythromycin Base] Adverse Reaction (Verified 12/30/18 17:18) visual hallucinations Potassium Clavulanate * [From Augmentin] Adverse Reaction (Verified 12/30/18 17:18) visual hallucinations Medications: Budesonide/Formoterol Fumarate [Symbicort HFA 160-4.5 mcg Inhaler 6 gm] 2 puff IH Q12 05/21/19 Ipratropium/Albuterol Sulfate [Duoneb 3 ml Ampul] 3 ml NEB RTQID 05/21/19 Levothyroxine Sodium 100 mcg PO Q6AM 05/21/19 Lorazepam [Ativan 1 mg Tablet] 0.5 mg PO BIDP PRN 05/21/19 Furosemide [Lasix 20 mg Tablet] 20 mg PO QAM 07/08/19 Potassium Chloride [Klor-Con 10 Meq Tablet ER] 10 meq PO DAILY 07/08/19 Sertraline HCl [Zoloft 50 mg Tablet] 50 mg PO DAILY 07/08/19 Vital Signs: Temp Pulse Resp BP Pulse Ox 98.1 F 98 17 144/81 H 99 07/12/19 08:08 07/12/19 08:08 07/12/19 08:08 07/12/19 08:08 07/12/19 08:08 Intake & Output 07/11/19 07/12/19 07/13/19 06:59 06:59 06:59 Intake Total 1230 1380 Output Total 1600 1750 Balance -370 -370 Weight 84.5 kg 84.8 kg Weight/Height Weight 84.8 kg Height 5 ft 6 in Laboratories: 07/09/19 05:08 07/11/19 05:30 MCV 96 fl (80-97) 07/09/19 05:08 MCH 32.4 pg (27.0-33.4) 07/09/19 05:08 MCHC 33.7 g/dL (32.0-36.0) 07/09/19 05:08 RDW 16.0 % (11.5-14.0) H 07/09/19 05:08 Seg Neutrophils % Not Reportable 07/09/19 05:08 Carbonic Acid 1.84 mmol/L (1.05-1.35) H 07/07/19 19:25 HCO3/H2CO3 Ratio 19:1 07/07/19 19:25 ABG pH 7.40 (7.35-7.45) 07/07/19 19:25 ABG pCO2 61.0 mmHg (35-45) H 07/07/19 19:25 ABG pO2 59.3 mmHg (80-100) L 07/07/19 19:25 ABG HCO3 36.6 mmol/L (20-24) H 07/07/19 19:25 ABG O2 Saturation 89.9 % (94-98) L 07/07/19 19:25 ABG Base Excess 10.1 mmol/L 07/07/19 19:25 FiO2 2L 07/07/19 19:25 Chloride 105 mmol/L (98-107) 07/09/19 05:08 Carbon Dioxide 31 mmol/L (22-30) H 07/09/19 05:08 Anion Gap 7 (5-19) 07/09/19 05:08 Est GFR ( Amer) > 60 (>60) 07/11/19 05:30 Glucose 182 mg/dL (75-110) H 07/09/19 05:08 Calcium 8.0 mg/dL (8.4-10.2) L 07/09/19 05:08 Magnesium 1.9 mg/dL (1.6-2.3) 07/07/19 19:53 Total Bilirubin 0.8 mg/dL (0.2-1.3) 07/07/19 19:53 AST 30 U/L (14-36) 07/07/19 19:53 Alkaline Phosphatase 61 U/L (38-126) 07/07/19 19:53 Total Protein 5.9 g/dL (6.3-8.2) L 07/07/19 19:53 Albumin 3.1 g/dL (3.5-5.0) L 07/07/19 19:53 Urine Color YELLOW 07/08/19 00:44 Urine Appearance TURBID 07/08/19 00:44 Urine pH 5.0 (5.0-9.0) 07/08/19 00:44 Ur Specific Ecker[place] 1.008 07/08/19 00:44 Urine Protein 100 mg/dL (NEGATIVE) H 07/08/19 00:44 Urine Glucose (UA) NEGATIVE mg/dL (NEGATIVE) 07/08/19 00:44 Urine Ketones NEGATIVE mg/dL (NEGATIVE) 07/08/19 00:44 Urine Blood SMALL (NEGATIVE) H 07/08/19 00:44 Urine RBC (Auto) 2 /HPF 07/08/19 00:44 07/09/19 13:21 Clean Catch Midstream Urine Culture - Final C.albicans/C.dubliniensis Yeast, Not Megan Albicans 07/07/19 19:53 Troponin I 0.015 Microbiology: Blood culture: 07/07 Bacillus spp Sputum Culture 07/07 MRSA, Pseudomonas Urine Culture Megan spp Radiology: Chest X-Ray 07/07/19 18:30 IMPRESSION: Similar right scarring -architectural distortion in the right hilus. No consolidation. Small left pleural effusion. Gastric Emptying Nuclear Medicine 07/09/19 00:00 IMPRESSION: Nondiagnostic gastric emptying exam. Patient vomited prior to image acquisition. Ordering provider was notified at the time of the exam. Exam will be reattempted at a later date. Assessment and Recommendations: Chart reviewed for positive sputum cultures with MRSA and Pseudomonas. Patient is a complicated case as she has COPD and chronic respiratory failure. 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 In this particular case, CXR is not impressive for pneumonia. She did have hypoxemia and hypercapnia as a COPD exacerbation, not necessarily exacerbated by pneumonia. As she might be colonized with these organisms and there isn't clear evidence of pneumonia, would not recommend a prolonged course of antibiotics as this can increase the risks for MDROs. She has received 5 days of vancomycin and cefepime, will recommend 2 more days. She can be transitioned to levofloxacin + TMP/SMX (as she is on an SSRI and linezoli d can increase the risk of serotonin syndrome) if ready for discharge, otherwise continue IV meds for 2 more days. Deandra Lees MD [facility] [phone]
--- NOTE | 2019-07-12 12:24 | PDOC PROGRESS REPORT ---
Subjective Progress Note for:: 07/12/19 Reason For Visit: HYPERCAPNIC RESP FAILURE PNUEMONIA 07/12/2019 Will follow recommendations of infectious disease, continue IV abx today and tomorrow and change to po on Monday. Physical Exam Vital Signs: Temp Pulse Resp BP Pulse Ox 98.1 F 105 H 15 144/81 H 96 07/12/19 08:08 07/12/19 08:15 07/12/19 08:15 07/12/19 08:08 07/12/19 08:15 Intake & Output 07/11/19 07/12/19 07/13/19 06:59 06:59 06:59 Intake Total 1230 1380 Output Total 1600 1750 Balance -370 -370 Weight 84.5 kg 84.8 kg General appearance: PRESENT: no acute distress, other - no significant respiratory distress Respiratory exam: PRESENT: decreased breath sounds Cardiovascular exam: PRESENT: RRR. ABSENT: diastolic murmur, rubs, systolic murmur Neurological exam: PRESENT: alert, awake, oriented to person, oriented to place, oriented to time, oriented to situation, CN II-XII grossly intact. ABSENT: motor sensory deficit Psychiatric exam: PRESENT: appropriate affect, normal mood. ABSENT: homicidal ideation, suicidal ideation Results Laboratory Results: 07/09/19 05:08 07/11/19 05:30 07/09/19 13:21 Clean Catch Midstream Urine Culture - Final C.albicans/C.dubliniensis Yeast, Not Megan Albicans 07/07/19 19:53 Troponin I 0.015 Impressions: Gastric Emptying Nuclear Medicine 07/09/19 00:00 IMPRESSION: Nondiagnostic gastric emptying exam. Patient vomited prior to image acquisition. Ordering provider was notified at the time of the exam. Exam will be reattempted at a later date. Assessment and Plan - Diagnosis (1) Acute exacerbation of chronic obstructive airways disease Is this a current diagnosis for this admission?: Yes (2) Acute bronchitis Qualifiers: Bronchitis organism: unspecified organism Qualified Code(s): J20.9 - Acute bronchitis, unspecified Is this a current diagnosis for this admission?: Yes (3) Chronic diastolic CHF (congestive heart failure) Is this a current diagnosis for this admission?: Yes (4) Nausea vomiting, chronic Is this a current diagnosis for this admission?: Yes - Plan Summary Summary: 07/09/2019 Admission chest x-ray shows no evidence of pneumonia. She is currently on ce fepime and vancomycin for COPD exacerbation with bronchitis. Patient is also currently taking Solu-Medrol 40 mg IV every 8 hours Patient states that she feels better following nebulizer treatment White count this morning is still stable 10,200, electrolytes appear grossly normal. Lactic acid on admission was 0.7 Urine was mildly suspicious for UTI culture is pending Sputum is growing out preliminary gram-negative rods and gram-positive cocci, 1 blood cultures growing out gram-positive rods Continue pulmonary toiletry, continue IV antibiotics. Patient was scheduled for nuclear medicine gastric emptying study this morning but unfortunately vomited up her food. This will be put on hold for the present time Vital signs reveal temperature 98 pulse 105 blood pressure 124/73 O2 sat is 99% on 2 L nasal cannula 07/10/2019 Pulse is anywhere from 110 high down to 70, blood pressure 134/74 O2 sat 99% on 2 L. Glucose is ranging anywhere from 100-200 Chest x-ray on admission is negative for pneumonia She has positive sputum cultures, patient currently on Maxipime every 12 hours, vancomycin daily, Solu-Medrol every 8 hours Started patient on Protonix yesterday for her nausea and vomiting. Alerted nursing that they are to witness patient's vomitus record frequency as well as substance. Patient is medically stable 07/11/2019 No record of vomiting in the nurses notes no record of vomiting in the I & O's Patient growing out Pseudomonas in sputum MRSA in the sputum. I am going to consult infectious disease since patient has been in and out of the hospital repeatedly lately, for pulmonary problems. Would be interested to know whether or not patient needs long-term IV antibiotics 07/12/19 Will follow ID's recommendations and continue IV abx today and tomorrow. Switch to po's Monday. Possible d/c Monday Maintaining oxygen sat's on 2 liters. Patient is stable. This appears to be more of an end stage COPD with chronic bacteremia. - Time Time Spent with patient: 25-34 minutes
--- NOTE | 2019-07-12 12:33 | RADIOLOGY REPORT (SQ) ---
EXAM DESCRIPTION: CHEST SINGLE VIEW COMPLETED DATE/TIME: 07/12/2019 12:11 pm REASON FOR STUDY: hypoxia COMPARISON: February 2019 NUMBER OF VIEWS: One view. TECHNIQUE: Single frontal radiographic image of the chest acquired. LIMITATIONS: None. FINDINGS: LUNGS AND PLEURA: Stable appearance. MEDIASTINUM AND HILAR STRUCTURES: Stable heart size and mediastinal structures. HEART AND VASCULAR STRUCTURES: Stable appearance. BONES: No acute findings. HARDWARE: None in the chest. OTHER: No other significant finding. IMPRESSION: STABLE APPEARANCE OF THE CHEST. TECHNICAL DOCUMENTATION: JOB ID: [id number] [employer]- All Rights Reserved Reading location - IP/workstation name: [email or web address]
[2019-07-12] MEDS: ACETAMINOPHEN 325 MG TABLET PO PRN (18:51)
[2019-07-13] MEDS ORDERED: OXYCODONE HCL IR 5 MG TABLET ONE (00:05)
[2019-07-13] MEDS ORDERED: LORAZEPAM 1 MG TABLET ONE (00:05)
[2019-07-13] MEDS ORDERED: OXYCODONE HCL IR 5 MG TABLET PO ONE (00:15)
[2019-07-13] MEDS ORDERED: LORAZEPAM 1 MG TABLET PO ONE (00:15)
[2019-07-13] MEDS: CEFEPIME HCL 2 GM in DEXTROSE 5%-WATER 50 ML IV SCH ×3 (00:55→21:46)
[2019-07-13] MEDS: METHYLPREDNISOLONE INJ 40 MG/1 ML SDV IV SCH ×4 (00:55→21:46)
--- NOTE | 2019-07-13 00:56 | Operative Report ---
Operative Report DATE OF SURGERY: 07/13/19 PREOPERATIVE DIAGNOSIS: Poor peripheral veins for IV access POSTOPERATIVE DIAGNOSIS: Same OPERATION: Placement of right internal jugular vein triple-lumen catheter under ultrasound guidance SURGEON: WES SARGENT ANESTHESIA: Local TISSUE REMOVED OR ALTERED: None COMPLICATIONS: None ESTIMATED BLOOD LOSS: 5 cc QUANTITATIVE BLOOD LOSS: 5 INTRAOPERATIVE FINDINGS: Fairly good right internal jugular vein diameter PROCEDURE: After informed consent obtained patient was placed in slight Trendelenburg position and the right neck prepped and draped in the usual sterile fashion. With the use of the ultrasound the right internal jugular vein was then identified and local anesthesia infiltrated over the skin. Internal jugular vein was then punctured and blood came out that is dark and nonpulsatile. A guidewire was then placed through the needle towards the end of the superior vena cava and the needle subsequently pulled out. The insertion site was then dilated and a triple-lumen was then anchored to the skin with 2-0 silk. All the 3 ports aspirated blood easily and instilled saline easily. Biopatch placed on the insertion site and a transparent sterile dressing placed at the catheter Biopatch. Patient tolerated procedure well. A chest x-ray will be obtained for placement. Inserted through the guidewire to a distance of about 15cm.
[2019-07-13] MEDS ORDERED: CEFEPIME HCL 2 GM in DEXTROSE 5%-WATER 50 ML IV ONE (01:00)
[2019-07-13] MEDS ORDERED: METHYLPREDNISOLONE INJ 40 MG/1 ML SDV IV ONE (01:00)
--- NOTE | 2019-07-13 01:38 | RADIOLOGY REPORT (SQ) ---
EXAM DESCRIPTION: XR CHEST 1 VIEW COMPLETED DATE/TME: 07/13/2019 00:00 CLINICAL HISTORY: 73 years, Female, Central Line Placement COMPARISON: 07/12/2019 chest NUMBER OF VIEWS: 1 TECHNIQUE: Portable chest LIMITATIONS: None. FINDINGS: The heart size is stable. Central venous catheter with the tip in the SVC. No pneumothorax. Subsegmental atelectasis left lung base IMPRESSION: Tip of the central line in the SVC copyright 2010 [employer]- All Rights Reserved
[2019-07-13] MEDS: IPRATROPIUM/ALBUTEROL 0.5-2.5 MG/3 ML AMPUL NEB SCH ×4 (02:04→20:38)
[2019-07-13] MEDS: VANCOMYCIN HCL 1,250 MG in DEXTROSE 5%-WATER 250 ML IV SCH (05:37)
[2019-07-13] MEDS: PANTOPRAZOLE SODIUM 20 MG TABLET.DR PO SCH ×2 (05:38→17:13)
[2019-07-13] MEDS: HEPARIN SOD (PORCINE) 5,000 UNIT/ML 1 ML VIAL SUBCUT SCH ×3 (05:38→21:46)
[2019-07-13] MEDS: LEVOTHYROXINE SODIUM 0.05 MG TABLET PO SCH (05:38)
[2019-07-13] MEDS: SERTRALINE HCL 50 MG TABLET PO SCH (09:32)
[2019-07-13] MEDS: FLUCONAZOLE 100 MG TABLET PO SCH (09:32)
[2019-07-13] MEDS: FUROSEMIDE 20 MG TABLET PO SCH (09:33)
--- NOTE | 2019-07-13 09:36 | PDOC PROGRESS REPORT ---
Subjective Progress Note for:: 07/13/19 Reason For Visit: HYPERCAPNIC RESP FAILURE PNUEMONIA 07/13/2019 The OPD exacerbation, acute bronchitis, chronic vomiting, chronic diastolic CHF MRSA and Pseudomonas in the sputum cultures Physical Exam Vital Signs: Temp Pulse Resp BP Pulse Ox 98.3 F 105 H 17 159/88 H 100 07/13/19 08:26 07/13/19 08:26 07/13/19 08:26 07/13/19 08:26 07/13/19 08:26 Intake & Output 07/12/19 07/13/19 07/14/19 06:59 06:59 06:59 Intake Total 1380 820 250 Output Total 1750 700 Balance -370 120 250 Weight 84.8 kg 83.1 kg General appearance: PRESENT: no acute distress, other - Patient falls asleep while sitting up eating breakfast, however I have witnessed this on previous admissions as well Respiratory exam: PRESENT: decreased breath sounds Cardiovascular exam: PRESENT: RRR. ABSENT: diastolic murmur, rubs, systolic murmur Neurological exam: PRESENT: alert, awake, oriented to person, oriented to place, oriented to time, oriented to situation, CN II-XII grossly intact, other - When patient is awake she is alert and oriented x3, she is ready to go home whenever we are ready to send her.. ABSENT: motor sensory deficit Psychiatric exam: PRESENT: flat affect Results Laboratory Results: 07/09/19 05:08 07/11/19 05:30 07/07/19 21:10 Blood Blood Culture - Final NO GROWTH IN 5 DAYS 07/07/19 19:53 Troponin I 0.015 Impressions: Gastric Emptying Nuclear Medicine 07/09/19 00:00 IMPRESSION: Nondiagnostic gastric emptying exam. Patient vomited prior to image acquisition. Ordering provider was notified at the time of the exam. Exam will be reatte mpted at a later date. Chest X-Ray 07/13/19 00:00 IMPRESSION: Tip of the central line in the SVC copyright 2011 [employer]- All Rights Reserved Assessment and Plan - Diagnosis (1) Acute exacerbation of chronic obstructive airways disease Is this a current diagnosis for this admission?: Yes (2) Acute bronchitis Qualifiers: Bronchitis organism: unspecified organism Qualified Code(s): J20.9 - Acute bronchitis, unspecified Is this a current diagnosis for this admission?: Yes (3) Chronic diastolic CHF (congestive heart failure) Is this a current diagnosis for this admission?: Yes (4) Nausea vomiting, chronic Is this a current diagnosis for this admission?: Yes - Plan Summary Summary: 07/09/2019 Admission chest x-ray shows no evidence of pneumonia. She is currently on cefepime and vancomycin for COPD exacerbation with bronchitis. Patient is also currently taking Solu-Medrol 40 mg IV every 8 hours Patient states that she feels better following nebulizer treatment White count this morning is still stable 10,200, electrolytes appear grossly normal. Lactic acid on admission was 0.7 Urine was mildly suspicious for UTI culture is pending Sputum is growing out preliminary gram-negative rods and gram-positive cocci, 1 blood cultures growing out gram-positive rods Continue pulmonary toiletry, continue IV antibiotics. Patient was scheduled for nuclear medicine gastric emptying study this morning but unfortunately vomited up her food. This will be put on hold for the present time Vital signs reveal temperature 98 pulse 105 blood pressure 124/73 O2 sat is 99% on 2 L nasal cannula 07/10/2019 Pulse is anywhere from 110 high down to 70, blood pressure 134/74 O2 sat 99% on 2 L. Glucose is ranging anywhere from 100-200 Chest x-ray on admission is negative for pneumonia She has positive sputum cultures, patient currently on Maxipime every 12 hours, vancomycin daily, Solu-Medrol every 8 hours Started patient on Protonix yesterday for her nausea and vomiting. Alerted nursing that they are to witness patient's vomitus record frequency as well as substance. Patient is medically stable 07/11/2019 No record of vomiting in the nurses notes no record of vomiting in the I & O's Patient growing out Pseudomonas in sputum MRSA in the sputum. I am going to consult infectious disease since patient has been in and out of the hospital repeatedly lately, for pulmonary problems. Would be interested to know whether or not patient needs long-term IV antibiotics 07/12/19 Will follow ID's recommendations and continue IV abx today and tomorrow. Switch to po's Monday. Possible d/c Monday Maintaining oxygen sat's on 2 liters. Patient is stable. This appears to be more of an end stage COPD with chronic bacteremia. 07/13/2019. Patient had to have a internal jugular vein catheterized last night for central line to poor peripheral access. It is unfortunate to because I was planning on changing her over to p.o. antibiotics tomorrow, per the recommendation for infectious disease. Patient will go home by [facility] transport and has home health already established from previous hospitalizations Temperature 97, pulse 102 which is normal for her blood pressure 151/79, O2 sat 95 to 100% on 2 L.. She also has Megan albicans in her urine culture, for this I gave her p.o. Diflucan's today, will give her 2 more days worth. Unfortunately she is allergic to multiple antibiotics, rarely Zithromax, Keflex, penicillin, erythromycin. We will send her out on Levaquin and Bactrim together Checking labs today - Time Time Spent with patient: 25-34 minutes
[2019-07-13 11:48] LABS: HEMATOCRIT 27.3 % (36.0-47.0); HEMOGLOBIN 9.1 g/dL (12.0-15.5); MEAN CORPUSCULAR HEMOGLOBIN 32.5 pg (27.0-33.4); MEAN CORPUSCULAR HGB CONC 33.5 g/dL (32.0-36.0); MEAN CORPUSCULAR VOLUME 97 fl (80-97); PLATELET COUNT 258 10^3/uL (150-450); RED BLOOD COUNT 2.81 10^6/uL (3.72-5.28); RED CELL DISTRIBUTION WIDTH 16.2 % (11.5-14.0); WHITE BLOOD COUNT 11.5 10^3/uL (4.0-10.5)
[2019-07-13 11:59] LABS: BLOOD UREA NITROGEN 32 mg/dL (7-20); CALCIUM 7.7 mg/dL (8.4-10.2); GLUCOSE 206 mg/dL (75-110); POTASSIUM 4.3 mmol/L (3.6-5.0)
[2019-07-13 12:04] LABS: CARBON DIOXIDE 36 mmol/L (22-30); CHLORIDE 103 mmol/L (98-107)
[2019-07-13 12:10] LABS: ANION GAP 2 (5-19)
[2019-07-13 12:13] LABS: ABSOLUTE LYMPHOCYTES# (MANUAL) 0.9 10^3/uL (0.5-4.7); ABSOLUTE MONOCYTES # (MANUAL) 0.5 10^3/uL (0.1-1.4); BASOPHILS % (MANUAL) 0 % (0-2); EOSINOPHILS % (MANUAL) 0 % (0-6); LYMPHOCYTES % (MANUAL) 8 % (13-45); METAMYELOCYTES % (MANUAL) 1 % (0-1); MONOCYTES % (MANUAL) 4 % (3-13); SEGMENTED NEUTROPHILS % (MAN) 87 % (42-78); TOTAL CELLS COUNTED 100
[2019-07-13 12:15] LABS: ANISOCYTOSIS 1+; POIKILOCYTOSIS SLIGHT; POLYCHROMASIA SLIGHT; TEAR DROP CELLS SLIGHT; TOXIC GRANULATION 1+
[2019-07-13 12:16] LABS: PLATELET COMMENT ADEQUATE
[2019-07-14] MEDS: ACETAMINOPHEN 325 MG TABLET PO PRN (00:19)
[2019-07-14] MEDS: IPRATROPIUM/ALBUTEROL 0.5-2.5 MG/3 ML AMPUL NEB SCH ×4 (01:35→20:45)
[2019-07-14] MEDS: VANCOMYCIN HCL 1,250 MG in DEXTROSE 5%-WATER 250 ML IV SCH (05:19)
[2019-07-14] MEDS: LEVOTHYROXINE SODIUM 0.05 MG TABLET PO SCH (05:20)
[2019-07-14] MEDS: HEPARIN SOD (PORCINE) 5,000 UNIT/ML 1 ML VIAL SUBCUT SCH ×3 (05:20→21:28)
[2019-07-14] MEDS: METHYLPREDNISOLONE INJ 40 MG/1 ML SDV IV SCH ×3 (05:20→21:29)
[2019-07-14] MEDS: PANTOPRAZOLE SODIUM 20 MG TABLET.DR PO SCH ×2 (05:20→17:21)
[2019-07-14 07:19] LABS: VANCOMYCIN,TROUGH 19.9 ug/mL (5.0-20.0)
[2019-07-14] MEDS: SERTRALINE HCL 50 MG TABLET PO SCH (09:16)
[2019-07-14] MEDS: FUROSEMIDE 20 MG TABLET PO SCH (09:16)
[2019-07-14] MEDS: FLUCONAZOLE 100 MG TABLET PO SCH (09:16)
[2019-07-14] MEDS: CEFEPIME HCL 2 GM in DEXTROSE 5%-WATER 50 ML IV SCH ×2 (09:55→21:27)
--- NOTE | 2019-07-14 10:13 | PDOC PROGRESS REPORT ---
Subjective Progress Note for:: 07/14/19 Reason For Visit: HYPERCAPNIC RESP FAILURE PNUEMONIA 07/14/2019 Patient was admitted for COPD exacerbation acute bronchitis chronic vomiting chronic diastolic CHF Physical Exam Vital Signs: Temp Pulse Resp BP Pulse Ox 98.5 F 102 H 18 131/83 H 96 07/14/19 03:49 07/14/19 08:03 07/14/19 08:03 07/14/19 03:49 07/14/19 08:03 Intake & Output 07/13/19 07/14/19 07/15/19 06:59 06:59 06:59 Intake Total 820 1130 250 Output Total 700 2400 Balance 120 -1270 250 Weight 83.1 kg 83.9 kg General appearance: PRESENT: no acute distress, other - Patient in no distress sitting up in bed talking in full sentences Respiratory exam: PRESENT: decreased breath sounds, other - Due to obesity Cardiovascular exam: PRESENT: RRR. ABSENT: diastolic murmur, rubs, systolic murmur Neurological exam: PRESENT: alert, awake, oriented to person, oriented to place, oriented to time, oriented to situation, CN II-XII grossly intact, other - Alert oriented. I discussed with patient her going home tomorrow. ABSENT: motor sensory deficit Psychiatric exam: PRESENT: appropriate affect, normal mood. ABSENT: homicidal ideation, suicidal ideation Results Laboratory Results: 07/13/19 11:20 07/13/19 11:20 07/13/19 07/13/19 11:20 11:20 WBC 11.5 H RBC 2.81 L Hgb 9.1 L Hct 27.3 L MCV 97 MCH 32.5 MCHC 33.5 RDW 16.2 H Plt Count 258 Seg Neutrophils % Not Reportable Sodium 141.2 Potassium 4.3 Chloride 103 Carbon Dioxide 36 H Anion Gap 2 L BUN 32 H Creatinine 0.82 Est GFR ( Amer) > 60 Glucose 206 H Calcium 7.7 L 07/07/19 19:53 Troponin I 0.015 Impressions: Gastric Emptying Nuclear Medicine 07/09/19 00:00 IMPRESSION: Nondiagnostic gastric emptying exam. Patient vomited prior to image acquisition. Ordering provider was notified at the time of the exam. Exam will be reat tempted at a later date. Chest X-Ray 07/13/19 00:00 IMPRESSION: Tip of the central line in the SVC copyright 2010 [employer]- All Rights Reserved Assessment and Plan - Diagnosis (1) Acute exacerbation of chronic obstructive airways disease Is this a current diagnosis for this admission?: Yes (2) Acute bronchitis Qualifiers: Bronchitis organism: unspecified organism Qualified Code(s): J20.9 - Acute bronchitis, unspecified Is this a current diagnosis for this admission?: Yes (3) Chronic diastolic CHF (congestive heart failure) Is this a current diagnosis for this admission?: Yes (4) Nausea vomiting, chronic Is this a current diagnosis for this admission?: Yes - Plan Summary Summary: 07/09/2019 Admission chest x-ray shows no evidence of pneumonia. She is currently on cefepime and vancomycin for COPD exacerbation with bronchitis. Patient is also currently taking Solu-Medrol 40 mg IV every 8 hours Patient states that she feels better following nebulizer treatment White count this morning is still stable 10,200, electrolytes appear grossly normal. Lactic acid on admission was 0.7 Urine was mildly suspicious for UTI culture is pending Sputum is growing out preliminary gram-negative rods and gram-positive cocci, 1 blood cultures growing out gram-positive rods Continue pulmonary toiletry, continue IV antibiotics. Patient was scheduled for nuclear medicine gastric emptying study this morning but unfortunately vomited up her food. This will be put on hold for the present time Vital signs reveal temperature 98 pulse 105 blood pressure 124/73 O2 sat is 99% on 2 L nasal cannula 07/10/2019 Pulse is anywhere from 110 high down to 70, blood pressure 134/74 O2 sat 99% on 2 L. Glucose is ranging anywhere from 100-200 Chest x-ray on admission is negative for pneumonia She has positive sputum cultures, patient currently on Maxipime every 12 hours, vancomycin daily, Solu-Medrol every 8 hours Started patient on Protonix yesterday for her nausea and vomiting. Alerted nursing that they are to witness patient's vomitus record frequency as well as substance. Patient is medically stable 07/11/2019 No record of vomiting in the nurses notes no record of vomiting in the I & O's Patient growing out Pseudomonas in sputum MRSA in the sputum. I am going to consult infectious disease since patient has been in and out of the hospital repeatedly lately, for pulmonary problems. Would be interested to know whether or not patient needs long-term IV antibiotics 07/12/19 Will follow ID's recommendations and continue IV abx today and tomorrow. Switch to po's Monday. Possible d/c Monday Maintaining oxygen sat's on 2 liters. Patient is stable. This appears to be more of an end stage COPD with chronic bacteremia. 07/13/2019. Patient had to have a internal jugular vein catheterized last night for central line due to to poor peripheral access. It is unfortunate too because I was planning on changing her over to p.o. antibiotics tomorrow, per the recommendation for infectious disease. Patient will go home by [facility] and has home health already established from previous hospitalizations Temperature 97, pulse 102 which is normal for her blood pressure 151/79, O2 sat 95 to 100% on 2 L.. She also has Megan albicans in her urine culture, for this I gave her p.o. Diflucan's today, will give her 2 more days worth. Unfortunately she is allergic to multiple antibiotics, rarely Zithromax, Keflex, penicillin, erythromycin. We will send her out on Levaquin and Bactrim together Checking labs today 07/14/2019 Patient remains afebrile, patient is on home O2 Labs appear stable To DC IV fluids, these, and write for Levaquin and Bactrim to be discharged home on times 5 days Patient's family has been made aware of this plan. She will be discharged [facility] - Time Time Spent with patient: 25-34 minutes
[2019-07-14] MEDS ORDERED: GLYCERIN (ADULT) SUPP.RECT PR ONE (20:12)
[2019-07-15] MEDS: IPRATROPIUM/ALBUTEROL 0.5-2.5 MG/3 ML AMPUL NEB SCH ×3 (02:21→13:58)
[2019-07-15] MEDS: PANTOPRAZOLE SODIUM 20 MG TABLET.DR PO SCH ×2 (05:33→17:07)
[2019-07-15] MEDS: HEPARIN SOD (PORCINE) 5,000 UNIT/ML 1 ML VIAL SUBCUT SCH ×2 (05:33→15:10)
[2019-07-15] MEDS: LEVOTHYROXINE SODIUM 0.05 MG TABLET PO SCH (05:33)
[2019-07-15] MEDS: METHYLPREDNISOLONE INJ 40 MG/1 ML SDV IV SCH ×2 (05:33→15:10)
[2019-07-15] MEDS ORDERED: VANCOMYCIN HCL 1,000 MG in DEXTROSE 5%-WATER 250 ML IV SCH (06:00)
[2019-07-15] MEDS: FUROSEMIDE 20 MG TABLET PO SCH (09:35)
[2019-07-15] MEDS: FLUCONAZOLE 100 MG TABLET PO SCH (09:35)
[2019-07-15] MEDS: SERTRALINE HCL 50 MG TABLET PO SCH (09:35)
[2019-07-15] MEDS: CEFEPIME HCL 2 GM in DEXTROSE 5%-WATER 50 ML IV SCH (09:35)
--- NOTE | 2019-07-15 15:47 | PDOC DISCHARGE SUMMARY ---
Impression - Admit/DC Date/PCP Admission Date/Primary Care Provider: 07/08/19 01:14 ARASELI AGUILAR MD Discharge Date: 07/15/19 - Discharge Diagnosis (1) Acute exacerbation of chronic obstructive airways disease Is this a current diagnosis for this admission?: Yes (2) Acute bronchitis Is this a current diagnosis for this admission?: Yes (3) Chronic diastolic CHF (congestive heart failure) Is this a current diagnosis for this admission?: Yes (4) Nausea vomiting, chronic Is this a current diagnosis for this admission?: Yes - Assessment Summary: 07/09/2019 Admission chest x-ray shows no evidence of pneumonia. She is currently on cef epime and vancomycin for COPD exacerbation with bronchitis. Patient is also currently taking Solu-Medrol 40 mg IV every 8 hours Patient states that she feels better following nebulizer treatment White count this morning is still stable 10,200, electrolytes appear grossly normal. Lactic acid on admission was 0.7 Urine was mildly suspicious for UTI culture is pending Sputum is growing out preliminary gram-negative rods and gram-positive cocci, 1 blood cultures growing out gram-positive rods Continue pulmonary toiletry, continue IV antibiotics. Patient was scheduled for nuclear medicine gastric emptying study this morning but unfortunately vomited up her food. This will be put on hold for the present time Vital signs reveal temperature 98 pulse 105 blood pressure 124/73 O2 sat is 99% on 2 L nasal cannula 07/10/2019 Pulse is anywhere from 110 high down to 70, blood pressure 134/74 O2 sat 99% on 2 L. Glucose is ranging anywhere from 100-200 Chest x-ray on admission is negative for pneumonia She has positive sputum cultures, patient currently on Maxipime every 12 hours, vancomycin daily, Solu-Medrol every 8 hours Started patient on Protonix yesterday for her nausea and vomiting. Alerted nursing that they are to witness patient's vomitus record frequency as well as substance. Patient is medically stable 07/11/2019 No record of vomiting in the nurses notes no record of vomiting in the I & O's Patient growing out Pseudomonas in sputum MRSA in the sputum. I am going to consult infectious disease since patient has been in and out of the hospital repeatedly lately, for pulmonary problems. Would be interested to know whether or not patient needs long-term IV antibiotics 07/12/19 Will follow ID's recommendations and continue IV abx today and tomorrow. Switch to po's Monday. Possible d/c Monday Maintaining oxygen sat's on 2 liters. Patient is stable. This appears to be more of an end stage COPD with chronic bacteremia. 07/13/2019. Patient had to have a internal jugular vein catheterized last night for central line due to to poor peripheral access. It is unfortunate too because I was planning on changing her over to p.o. antibiotics tomorrow, per the recomme ndation for infectious disease. Patient will go home by [facility] and has home health already established from previous hospitalizations Temperature 97, pulse 102 which is normal for her blood pressure 151/79, O2 sat 95 to 100% on 2 L.. She also has Megan albicans in her urine culture, for this I gave her p.o. Diflucan's today, will give her 2 more days worth. Unfortunately she is allergic to multiple antibiotics, rarely Zithromax, Keflex, penicillin, erythromycin. We will send her out on Levaquin and Bactrim together Checking labs today 07/14/2019 Patient remains afebrile, patient is on home O2 Labs appear stable To DC IV fluids, these, and write for Levaquin and Bactrim to be discharged home on times 5 days Patient's family has been made aware of this plan. She will be discharged [facility] 07/15/2019 She is being discharged to home, Levaquin 500 mg 5 tablets, Bactrim double strength 10 tablets 1 twice daily Medrol Dosepak and Pepcid - Additional Information Resuscitation Status: Full Code Discharge Activity: Activity As Tolerated Referrals: ARASELI AGUILAR MD [Primary Care Provider] - 07/30/19 11:00 am Prescriptions: Sulfamethoxazole/Trimethoprim [Bactrim Ds Tablet] 1 each PO BID 5 Days #10 tablet Levofloxacin [Levaquin 500 mg Tablet] 500 mg PO DAILY 5 Days #5 tablet Methylprednisolone [Medrol Dosepack (4 mg/Tab) 21 Tab/Dosepak] 4 mg PO ASDIR PRN #21 tab.ds.pk PRN Reason: Famotidine [Pepcid 20 mg Tablet] 20 mg PO DAILY 30 Days #30 tablet Home Medications: Budesonide/Formoterol Fumarate [Symbicort HFA 160-4.5 mcg Inhaler 6 gm] 2 puff IH Q12 05/21/19 Ipratropium/Albuterol Sulfate [Duoneb 3 ml Ampul] 3 ml NEB RTQID 05/21/19 Levothyroxine Sodium 100 mcg PO Q6AM 05/21/19 Lorazepam [Ativan 1 mg Tablet] 0.5 mg PO BIDP PRN 05/21/19 Furosemide [Lasix 20 mg Tablet] 20 mg PO QAM 07/08/19 Potassium Chloride [Klor-Con 10 Meq Tablet ER] 10 meq PO DAILY 07/08/19 Sertraline HCl [Zoloft 50 mg Tablet] 50 mg PO DAILY 07/08/19 Famotidine [Pepcid 20 mg Tablet] 20 mg PO DAILY 30 Days #30 tablet 07/15/19 Levofloxacin [Levaquin 500 mg Tablet] 500 mg PO DAILY 5 Days #5 tablet 07/15/19 Methylprednisolone [Medrol Dosepack (4 mg/Tab) 21 Tab/Dosepak] 4 mg PO ASDIR PRN #21 tab.ds.pk 07/15/19 Sulfamethoxazole/Trimethoprim [Bactrim Ds Tablet] 1 each PO BID 5 Days #10 tablet 07/15/19 History of Present Illiness History of Present Illness: TRENTON MCCOY is a 73 year old female Physical Exam Vital Signs: Temp Pulse Resp BP Pulse Ox 98.2 F 94 16 158/85 H 98 07/15/19 11:54 07/15/19 14:00 07/15/19 14:00 07/15/19 11:54 07/15/19 14:00 Intake & Output 07/14/19 07/15/19 07/16/19 06:59 06:59 06:59 Intake Total 1130 1367 540 Output Total 2400 0268 600 Balance -1270 -608 -60 Weight 83.9 kg 84 kg Results Laboratory Results: WBC 11.5 10^3/uL (4.0-10.5) H 07/13/19 11:20 RBC 2.81 10^6/uL (3.72-5.28) L 07/13/19 11:20 Hgb 9.1 g/dL (12.0-15.5) L 07/13/19 11:20 Hct 27.3 % (36.0-47.0) L 07/13/19 11:20 MCV 97 fl (80-97) 07/13/19 11:20 MCH 32.5 pg (27.0-33.4) 07/13/19 11:20 MCHC 33.5 g/dL (32.0-36.0) 07/13/19 11:20 RDW 16.2 % (11.5-14.0) H 07/13/19 11:20 Plt Count 258 10^3/uL (150-450) 07/13/19 11:20 Lymph % (Auto) Not Reportable 07/13/19 11:20 [place] % (Auto) Not Reportable 07/13/19 11:20 Eos % (Auto) Not Reportable 07/13/19 11:20 Baso % (Auto) Not Reportable 07/13/19 11:20 Absolute Neuts (auto) Not Reportable 07/13/19 11:20 Absolute Lymphs (auto) Not Reportable 07/13/19 11:20 Absolute Monos (auto) Not Reportable 07/13/19 11:20 Absolute Eos (auto) Not Reportable 07/13/19 11:20 Absolute Basos (auto) Not Reportable 07/13/19 11:20 Total Counted 100 07/13/19 11:20 Seg Neutrophils % Not Reportable 07/13/19 11:20 Seg Neuts % (Manual) 87 % (42-78) H 07/13/19 11:20 Band Neutrophils % 1 % (3-5) L 07/09/19 05:08 Lymphocytes % (Manual) 8 % (13-45) L 07/13/19 11:20 Monocytes % (Manual) 4 % (3-13) 07/13/19 11:20 Eosinophils % (Manual) 0 % (0-6) 07/13/19 11:20 Basophils % (Manual) 0 % (0-2) 07/13/19 11:20 Metamyelocytes % 1 % (0-1) 07/13/19 11:20 Abs Neuts (Manual) 10.1 10^3/uL (1.7-8.2) H 07/13/19 11:20 Abs Lymphs (Manual) 0.9 10^3/uL (0.5-4.7) 07/13/19 11:20 Abs Monocytes (Manual) 0.5 10^3/uL (0.1-1.4) 07/13/19 11:20 Absolute Eos (Manual) 0.0 10^3/uL (0.0-0.6) 07/13/19 11:20 Abs Basophils (Manual) 0.0 10^3/uL (0.0-0.2) 07/13/19 11:20 Toxic Granulation 1+ 07/13/19 11:20 Platelet Estimate Cancelled 07/07/19 19:53 Platelet Comment ADEQUATE 07/13/19 11:20 Polychromasia SLIGHT 07/13/19 11:20 Poikilocytosis SLIGHT 07/13/19 11:20 Basophilic Stippling PRESENT 07/13/19 11:20 Anisocytosis 1+ 07/13/19 11:20 Tear Drop Cells SLIGHT 07/13/19 11:20 PT 13.2 SEC (11.4-15.4) 07/07/19 21:10 INR 1.00 07/07/19 21:10 APTT 24.9 SEC (23.5-35.8) 07/07/19 21:10 Carbonic Acid 1.84 mmol/L (1.05-1.35) H 07/07/19 19:25 HCO3/H2CO3 Ratio 19:1 07/07/19 19:25 ABG pH 7.40 (7.35-7.45) 07/07/19 19:25 ABG pCO2 61.0 mmHg (35-45) H 07/07/19 19:25 ABG pO2 59.3 mmHg (80-100) L 07/07/19 19:25 ABG HCO3 36.6 mmol/L (20-24) H 07/07/19 19:25 ABG Total CO2 38.5 mmol/L (21-25) H 07/07/19 19:25 ABG O2 Saturation 89.9 % (94-98) L 07/07/19 19:25 ABG Base Excess 10.1 mmol/L 07/07/19 19:25 FiO2 2L 07/07/19 19:25 Sodium 141.2 mmol/L (137-145) 07/13/19 11:20 Potassium 4.3 mmol/L (3.6-5.0) 07/13/19 11:20 Chloride 103 mmol/L (98-107) 07/13/19 11:20 Carbon Dioxide 36 mmol/L (22-30) H 07/13/19 11:20 Anion Gap 2 (5-19) L 07/13/19 11:20 BUN 32 mg/dL (7-20) H 07/13/19 11:20 Creatinine 0.82 mg/dL (0.52-1.25) 07/13/19 11:20 Est GFR ( Amer) > 60 (>60) 07/13/19 11:20 Est GFR (MDRD) Non-Af > 60 (>60) 07/13/19 11:20 Glucose 206 mg/dL (75-110) H 07/13/19 11:20 POC Glucose 257 mg/dL (70-110) H 07/12/19 12:06 Lactic Acid (Sepsis) 0.7 mmol/L (0.7-2.1) 07/07/19 19:53 Calcium 7.7 mg/dL (8.4-10.2) L 07/13/19 11:20 Magnesium 1.9 mg/dL (1.6-2.3) 07/07/19 19:53 Total Bilirubin 0.8 mg/dL (0.2-1.3) 07/07/19 19:53 Direct Bilirubin 0.5 mg/dL (0.0-0.4) H 07/07/19 19:53 Neonat Total Bilirubin Not Reportable 07/07/19 19:53 Neonat Direct Bilirubin Not Reportable 07/07/19 19:53 Neonat Indirect Bili Not Reportable 07/07/19 19:53 AST 30 U/L (14-36) 07/07/19 19:53 ALT 9 U/L (<35) 07/07/19 19:53 Alkaline Phosphatase 61 U/L (38-126) 07/07/19 19:53 Troponin I 0.015 ng/mL 07/07/19 19:53 Total Protein 5.9 g/dL (6.3-8.2) L 07/07/19 19:53 Albumin 3.1 g/dL (3.5-5.0) L 07/07/19 19:53 Urine Color YELLOW 07/08/19 00:44 Urine Appearance TURBID 07/08/19 00:44 Urine pH 5.0 (5.0-9.0) 07/08/19 00:44 Ur Specific [place] 1.008 07/08/19 00:44 Urine Protein 100 mg/dL (NEGATIVE) H 07/08/19 00:44 Urine Glucose (UA) NEGATIVE mg/dL (NEGATIVE) 07/08/19 00:44 Urine Ketones NEGATIVE mg/dL (NEGATIVE) 07/08/19 00:44 Urine Blood SMALL (NEGATIVE) H 07/08/19 00:44 Urine Nitrite (Reflex) NEGATIVE (NEGATIVE) 07/08/19 00:44 Urine Bilirubin NEGATIVE (NEGATIVE) 07/08/19 00:44 Urine Urobilinogen NEGATIVE mg/dL (<2.0) 07/08/19 00:44 Leukocyte Esterase Rfl SMALL (NEGATIVE) H 07/08/19 00:44 Urine RBC (Auto) 2 /HPF 07/08/19 00:44 Urine Bacteria (Auto) 3+ /HPF 07/08/19 00:44 Urine WBC (Reflex) 114 /HPF 07/08/19 00:44 Squamous Epi Cells Auto 377 /HPF 07/08/19 00:44 U Non-Squamous Epis Auto 13 /HPF 07/08/19 00:44 Urine Mucus (Auto) RARE /LPF 07/08/19 00:44 Urine Ascorbic Acid 40 (NEGATIVE) H 07/08/19 00:44 Time Trough Drawn 0515 07/14/19 05:15 Vancomycin Trough 19.9 ug/mL (5.0-20.0) 07/14/19 05:15 Slides for Path Review Cancelled 07/07/19 19:53 07/07/19 19:53 Troponin I 0.015 Impressions: Chest X-Ray 07/07/19 18:30 IMPRESSION: Similar right scarring -architectural distortion in the right hilus. No consolidation. Small left pleural effusion. Gastric Emptying Nuclear Medicine 07/09/19 00:00 IMPRESSION: Nondiagnostic gastric emptying exam. Patient vomited prior to image acquisition. Ordering provider was notified at the time of the exam. Exam will be reattempted at a later date. Chest X-Ray 07/12/19 00:00 IMPRESSION: STABLE APPEARANCE OF THE CHEST. Chest X-Ray 07/13/19 00:00 IMPRESSION: Tip of the central line in the SVC copyright 2011 [employer]- All Rights Reserved Stroke Is this a Stroke Patient?: No Acute Heart Failure - Is this a Heart Failure Patient?: Yes Documentation of LVEF assessment?: No, Document reason LVEF < 40%?: No- if no continue to question #3 3. Anticoagulant therapy for permanect/persistent/paraoxysmal Afib or Aflutter: Yes Follow-up Appointment scheduled within 7 days?: Yes
[2019-07-15] MEDS: ACETAMINOPHEN 325 MG TABLET PO PRN (16:45)
[2019-07-15 18:11] LABS: CREATINE KINASE MB 1.3 ng/mL (<4.55)
[2019-07-15 18:57] LABS: TROPONIN I 0.047 ng/mL
[2019-07-15 19:50] VITALS: BP 124/64
--- NOTE | 2019-07-16 00:37 | EKG REPORT ---
SEVERITY:- ABNORMAL ECG - SINUS RHYTHM RIGHT BUNDLE BRANCH BLOCK LEFT VENTRICULAR HYPERTROPHY : Confirmed by: Mercedes Solomon 16-Jul-2019 00:37:29
== END 2019-07-15 20:08 | disposition home or self-care (01) | DRG 189 ==
LOC: ER 17:29 → EH 07-08 01:14 → 3W 07-08 03:33
PROVIDERS: ADMIT Internal Medicine; ATTEND Internal Medicine
PROC: 02HV33Z Insertion of Infusion Device into Superior Vena Cava, Percutaneous Approach (ICD-10-PCS; principal; 2019-07-13)
PROC: B548ZZA Ultrasonography of Superior Vena Cava, Guidance (ICD-10-PCS; 2019-07-13)
DX: J96.20 Acute and chronic respiratory failure, unspecified whether with hypoxia or hypercapnia (principal); J44.1 Chronic obstructive pulmonary disease with (acute) exacerbation; I50.32 Chronic diastolic (congestive) heart failure; B37.49 Other urogenital candidiasis; I48.91 Unspecified atrial fibrillation; I25.10 Atherosclerotic heart disease of native coronary artery without angina pectoris; I11.0 Hypertensive heart disease with heart failure; E03.9 Hypothyroidism, unspecified; E11.8 Type 2 diabetes mellitus with unspecified complications; F03.90 Unspecified dementia, unspecified severity, without behavioral disturbance, psychotic disturbance, mood disturbance, and anxiety; G47.33 Obstructive sleep apnea (adult) (pediatric); I25.2 Old myocardial infarction; Z99.81 Dependence on supplemental oxygen; Z79.51 Long term (current) use of inhaled steroids; Z79.52 Long term (current) use of systemic steroids; Z79.899 Other long term (current) drug therapy
CPT/HCPCS: 36415; 71045; 78264; 80048; 80053; 80202; 81001; 82550; 82553; 82565; 82803; 82962; 83605; 83735; 84484; 85025; 85610; 85730; 87040; 87070; 87077; 87086; 87186; 87205; 93005; 93010; 94640; 94660; 94667; 94668; 94799; 96365; 96366; 96375; 99285; A9541; C1751; J0692; J1644; J1956; J2920; J2930; J3370; J3490; J7030; J7060; J7620

== ENCOUNTER 2019-07-22 22:16 | Inpatient (IN) | payer MEDICARE, OTHER ==
[2019-07-22] MEDS ORDERED: NORMAL SALINE 1000 ML 1,000 ML IV ONE ×2 (23:22)
[2019-07-22] MEDS ORDERED: ONDANSETRON HCL INJ/PF 4 MG/2 ML SDV IV ONE (23:29)
--- NOTE | 2019-07-22 23:41 | ER Document Report ---
ED General - General Chief Complaint: Nausea/Vomiting/Diarrhea Stated Complaint: NAUSEA/VOMITING Time Seen by Provider: 07/22/19 23:13 Notes: Patient is a 73-year-old female that comes to the emergency department by EMS for chief complaint of vomiting, diarrhea, weakness. Patient states this is been going on for the past 2 days. Patient was recently discharged from this hospital after being admitted for COPD exacerbation and pneumonia. Patient has a history of COPD on 2 L nasal cannula at all times, type 2 diabetes, hypertension, STEPHANIE, chronic respiratory failure, dementia. No heart failure reported. TRAVEL OUTSIDE OF THE [place] IN LAST 30 DAYS: No - Related Data Allergies/Adverse Reactions: azithromycin Allergy (Verified 12/30/18 17:18) cephalexin Allergy (Verified 12/30/18 17:18) Penicillins Allergy (Verified 12/30/18 17:18) amoxicillin [Amoxicillin] Adverse Reaction (Verified 12/30/18 17:18) visual hallucinations erythromycin base [Erythromycin Base] Adverse Reaction (Verified 12/30/18 17:18) visual hallucinations Potassium Clavulanate * [From Augmentin] Adverse Reaction (Verified 12/30/18 17:18) visual hallucinations Past Medical History - General Information source: Patient - Social History Smoking Status: Unknown if Ever Smoked Frequency of alcohol use: None Drug Abuse: None Lives with: Family Family History: COPD, Malignancy - Lung cancer Patient has suicidal ideation: No Patient has homicidal ideation: No - Past Medical History Cardiac Medical History: Reports: Hx Atrial Fibrillation, Hx Congestive Heart Failure, Hx Coronary Artery Disease, Hx Heart Attack, Hx Hypertension Denies: Hx DVT, Hx Hypercholesterolemia, Hx Pulmonary Embolism Pulmonary Medical History: Reports: Hx Asthma, Hx Bronchitis, Hx COPD, Hx Pneumonia, Hx Respiratory Failure - Chronic respiratory failure, Hx Sleep Apnea Denies: Hx Tuberculosis Neurological Medical History: Denies: Hx Seizures, Hx Parkinson's Disease Endocrine Medical History: Reports: Hx Diabetes Mellitus Type 2, Hx H ypothyroidism. 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 Denies: Hx Cirrhosis, Hx Hepatitis, Hx Ulcer Musculoskeletal Medical History: Reports Hx Arthritis, Reports Hx Gout, Denies Hx Multiple Sclerosis, Reports Hx Musculoskeletal Deformity, Reports Hx Musculoskeletal Trauma Skin Medical History: Denies Hx Eczema, Denies Hx Psoriasis Psychiatric Medical History: Reports: Hx Dementia, Hx Depression Denies: Hx Bipolar Disorder, Hx Schizophrenia Infectious Medical History: Reports: Hx C-Diff. Denies: Hx Hepatitis Past Surgical History: Reports: Hx Cholecystectomy, Hx Orthopedic Surgery - Foot surgery, Other - Bilateral cataract surgery - Immunizations Immunizations up to date: Yes Hx Diphtheria, Pertussis, Tetanus Vaccination: Yes Hx Pneumococcal Vaccination: 08/30/12 Review of Systems - Review of Systems Constitutional: See HPI EENT: No symptoms reported Cardiovascular: No symptoms reported Respiratory: No symptoms reported Gastrointestinal: See HPI Genitourinary: No symptoms reported Female Genitourinary: No symptoms reported Musculoskeletal: No symptoms reported Skin: No symptoms reported Hematologic/Lymphatic: No symptoms reported Neurological/Psychological: No symptoms reported Physical Exam - Vital signs Vitals: Resp Pulse Ox 29 H 100 07/22/19 22:17 07/22/19 22:17 - Notes Notes: GENERAL: Pale, ill-appearing HEAD: Normocephalic, atraumatic. EYES: Pupils equal, round, and reactive to light. Extraocular movements intact. ENT: Oral mucosa very dry, tongue midline. Oropharynx unremarkable. Airway patent. LUNGS: Few scattered rhonchi, tachypnea and slightly labored breathing HEART: Tachycardia, regular ABDOMEN: Slightly distended, generalized tenderness, no specific areas of tenderness or guarding. Bowel sounds throughout. GENITOURINARY: No concerning findings noted other than some erythema of the general inguinal region EXTREMITIES: Moves all 4 extremities spontaneously. No edema, normal radial and dorsalis pedis pulses bilaterally. No cyanosis. BACK: no cervical, thoracic, lumbar midline tenderness. No saddle anesthesia, normal distal neurovascular exam. NEUROLOGICAL: Alert and oriented x3. Normal speech. Cranial nerves II through XII grossly intact. SKIN: Pale Course - Re-evaluation Re-evalutation: 07/22/19 23:38 I have been at the bedside continuously until now assessing the patient. Patient had 2 very large bowel movements while I was in the room, she vomited twice followed in the room, she is very difficult with IV access, we were able to place a 20-gauge in the right foot and then I placed an 18-gauge in the right AC using ultrasound guidance. We have begun fluid resuscitation. She was given Zofran. Patient is very tachycardic in the 140s, hypotensive in the 80s systoli c but her map is above 65. Patient is alert and responsive, complaining that she is cold and that she is nauseated. She has a congested cough, oxygen saturation 95 and 96% on 2 L nasal cannula which is chronic. She denies abdominal pain, chest pain, she just states that she feels "weak". For work-up initiated, she will be monitored very closely. Review of recent admission records does show that she has a history of diastolic CHF as well. Chemistry shows mild renal insufficiency, lactic acid is greater than 4, CBC shows no leukocytosis but does show 6% bands. Chest x-ray unremarkable. After being given Zofran patient did not vomit. Patient's heart rate is slightly improved, her blood pressure is significantly improved into the upper 90s and low 100s systolic. She is afebrile. Troponin indeterminate. Lipase unremarkable. CAT scan will be performed because of patient's abdominal pain, vomiting, diarrhea, unstable vital signs, recent antibiotics. Patient is worse with her respiratory status with labored breathing and reporting shortness of breath. She will be placed on BiPAP. Venous blood gas is surprisingly respiratory in appearance with elevated CO2 and bicarbonate. Patient getting mildly hypotensive again, this is very difficult to measure because the cuff is not working well, we have had to obtain multiple manual blood pressures. Her respiratory status is much improved on BiPAP. CAT scan nonspecific and showing mild diverticulitis. C. difficile actually r esulted and is positive, patient was initially being given Levaquin and Flagyl, Levaquin was stopped before being infused. Discussed with Dr. Dixon. Discussed with Dr. Contreras, he accepts patient for admission to the [facility]. Patient does state understanding and agreement. 07/23/19 Dr. Contreras called me, states that the patient has now worsened, increasing hypotension despite 3 L of fluid resuscitation, she is now febrile at 101.7, she is now confused but still arousable and responsive. Respiratory status has not changed. He requests a central line and he states he will talk to the intens ivist for admission to them. I discussed with patient, she does consent to this. Patient does not want this in her neck, this was placed in the right femoral area. Started on Levophed. Crop Research Scientist came to bedside and took over care. - Vital Signs Vital signs: Temp Pulse Resp BP Pulse Ox 101.4 F H 22 H 80/56 L 97 07/23/19 04:32 07/23/19 04:32 07/23/19 04:51 07/23/19 04:32 - Laboratory Result Diagrams: 07/23/19 00:42 07/22/19 23:00 Laboratory results interpreted by me: 07/22/19 07/22/19 07/22/19 23:00 23:38 23:38 RBC Hgb Hct MCV RDW Seg Neuts % (Manual) Band Neutrophils % Lymphocytes % (Manual) Monocytes % (Manual) Abs Lymphs (Manual) VBG pH 7.23 L VBG pCO2 92.0 H* VBG HCO3 37.8 H Chloride 95 L BUN 43 H Creatinine 1.45 H Est GFR ( Amer) 43 L Est GFR (MDRD) Non-Af 35 L Glucose 179 H Lactic Acid 4.6 H Calcium 10.8 H Urine Protein Ur Leukocyte Esterase Urine Ascorbic Acid 07/23/19 07/23/19 00:42 01:25 RBC 3.55 L Hgb 11.6 L Hct 35.3 L MCV 100 H RDW 18.4 H Seg Neuts % (Manual) 88 H Band Neutrophils % 6 H Lymphocytes % (Manual) 3 L Monocytes % (Manual) 2 L Abs Lymphs (Manual) 0.2 L VBG pH VBG pCO2 VBG HCO3 Chloride BUN Creatinine Est GFR ( Amer) Est GFR (MDRD) Non-Af Glucose Lactic Acid Calcium Urine Protein 30 H Ur Leukocyte Esterase SMALL H Urine Ascorbic Acid 40 H Procedures - Central Line Right femoral Consent obtained: Yes - Verbal Central line pre-insertion: Sterile PPE donned, Chloraprep applied, Sterile drapes applied Central line lumen type: Triple Anesthetic type: 1% Lidocaine mL's of anesthesia: 5 Ultrasound guided: Yes Line secured with sutures: Yes Central line post-insertion: Blood return from lumens, Biopatch applied, Sutured, Sterile dressing applied Number of attempts: 1 Complications: No Critical Care Note - Critical Care Note Total time excluding time spent on procedures (mins): 45 - Septic shock, respiratory distress Comments: Please allow 45 minutes of critical care time for evaluation and management of critically ill patient with C. difficile colitis, septic shock, respiratory distress. Multiple interventions including IV fluid resuscitation, BiPAP therap y, antibiotics. Time spent reevaluating patient multiple times, time spent consulting with hospitalist and cracking unit operator. Discharge - Discharge Clinical Impression: C. difficile colitis, Vomiting and diarrhea, Tachycardia Hypotension Qualifiers: Hypotension type: unspecified hypotension type Qualified Code(s): I95.9 - Hypotension, unspecified Acute and chronic respiratory failure Qualifiers: Respiratory failure complication: hypercapnia Qualified Code(s): J96.22 - Acute and chronic respiratory failure with hypercapnia Condition: Fair Disposition: ADMITTED INPATIENT Admitting Provider: Ben (Hospitalist) Unit Admitted: [facility]
[2019-07-22 23:44] LABS: ALBUMIN 3.8 g/dL (3.5-5.0); ALKALINE PHOSPHATASE 111 U/L (38-126); ANION GAP 14 (5-19); ASPARTATE AMINO TRANSFERASE 24 U/L (14-36); BILIRUBIN,DIRECT 0.3 mg/dL (0.0-0.4); BILIRUBIN,TOTAL 0.6 mg/dL (0.2-1.3); BLOOD UREA NITROGEN 43 mg/dL (7-20); CALCIUM 10.8 mg/dL (8.4-10.2); CARBON DIOXIDE 28 mmol/L (22-30); CHLORIDE 95 mmol/L (98-107); GLUCOSE 179 mg/dL (75-110); POTASSIUM 4.1 mmol/L (3.6-5.0); TOTAL PROTEIN 6.4 g/dL (6.3-8.2)
[2019-07-22 23:56] LABS: VENOUS BLOOD BASE EXCESS 7.3 mmol/L; VENOUS BLOOD HCO3 37.8 mmol/L (20-32); VENOUS BLOOD PH 7.23 (7.30-7.42)
[2019-07-23 01:09] LABS: HEMATOCRIT 35.3 % (36.0-47.0); HEMOGLOBIN 11.6 g/dL (12.0-15.5); MEAN CORPUSCULAR HEMOGLOBIN 32.7 pg (27.0-33.4); MEAN CORPUSCULAR HGB CONC 32.9 g/dL (32.0-36.0); MEAN CORPUSCULAR VOLUME 100 fl (80-97); PLATELET COUNT 164 10^3/uL (150-450); RED BLOOD COUNT 3.55 10^6/uL (3.72-5.28); RED CELL DISTRIBUTION WIDTH 18.4 % (11.5-14.0); WHITE BLOOD COUNT 5.2 10^3/uL (4.0-10.5)
[2019-07-23 01:13] LABS: ABSOLUTE LYMPHOCYTES# (MANUAL) 0.2 10^3/uL (0.5-4.7); ABSOLUTE MONOCYTES # (MANUAL) 0.1 10^3/uL (0.1-1.4); BAND NEUTROPHILS % (MANUAL) 6 % (3-5); BASOPHILS % (MANUAL) 1 % (0-2); EOSINOPHILS % (MANUAL) 0 % (0-6); LYMPHOCYTES % (MANUAL) 3 % (13-45); MONOCYTES % (MANUAL) 2 % (3-13); NUCLEATED RED BLOOD CELLS 1 /100 WBC (0); SEGMENTED NEUTROPHILS % (MAN) 88 % (42-78); TOTAL CELLS COUNTED 100
[2019-07-23 01:15] LABS: ANISOCYTOSIS 2+; BURR CELLS SLIGHT; TOXIC GRANULATION 1+
[2019-07-23 01:16] LABS: PLATELET COMMENT ADEQUATE; SCHISTOCYTES SLIGHT
--- NOTE | 2019-07-23 01:25 | RADIOLOGY REPORT (SQ) ---
EXAM DESCRIPTION: XR CHEST 1 VIEW COMPLETED DATE/TME: 07/22/2019 23:20 CLINICAL HISTORY: 73 years, Female, hypotension tachycardia COMPARISON: 07/13/2019 chest NUMBER OF VIEWS: 1 TECHNIQUE: Portable chest LIMITATIONS: None. FINDINGS: The heart size is normal. Atheromatous change of the thoracic aorta. Subsegmental atelectasis left lung base. Osteopenia. No pneumothorax IMPRESSION: No acute cardiopulmonary process copyright 2010 [employer]- All Rights Reserved
[2019-07-23 01:59] LABS: C DIFFICILE GDH POSITIVE (NEGATIVE)
--- NOTE | 2019-07-23 02:04 | RADIOLOGY REPORT (SQ) ---
EXAM DESCRIPTION: CT ABDOMEN PELVIS WITH IV CONTRAST COMPLETED DATE/TME: 07/23/2019 00:39 CLINICAL HISTORY: 73 years, Female, abd pain, vomiting and diarrhea, elevated lactic COMPARISON: 06/04/2019 CT TECHNIQUE: 554 Images stored on PACS. All CT scanners at this facility use dose modulation, iterative reconstruction, and/or weight based dosing when appropriate to reduce radiation dose to as low as reasonably achievable (ALARA). [facility]: Dose Right [facility]: CareDose [facility]: Dose Right [facility]: Teradose 4D [facility]: [employer] LIMITATIONS: None. FINDINGS: Limited evaluation of the lung bases shows subsegmental atelectasis in the right lung base. Osseous structures are grossly intact. Fatty change to the liver. There is pneumobilia, similar to the prior exam. Status post cholecystectomy. The spleen, adrenal glands, pancreas are unremarkable. Stable exophytic right renal cyst. Kidneys are otherwise unremarkable. No gross evidence for bowel obstruction. Moderate atheromatous change. Normal appendix. Laxity of the anterior abdominal wall musculature with diastases recti. Sidhu catheter in urinary bladder. Subjective wall thickening of the sigmoid colon with multiple diverticuli and some equivocal adjacent inflammation. No abscess, free air, or free fluid. IMPRESSION: Findings suggestive of mild acute sigmoid diverticulitis. Multiple other incidental findings, as above TECHNICAL DOCUMENTATION: Quality ID # 436: Final reports with documentation of one or more dose reduction techniques (e.g., Automated exposure control, adjustment of the mA and/or kV according to patient size, use of iterative reconstruction technique) copyright 2010 [employer]- All Rights Reserved
[2019-07-23 02:13] LABS: APPEARANCE,URINE SLIGHTLY-CLOUDY; BILIRUBIN,URINE NEGATIVE (NEGATIVE); COLOR,URINE YELLOW; GLUCOSE, URINE NEGATIVE (NEGATIVE); KETONES,URINE NEGATIVE (NEGATIVE); LEUKOCYTE ESTERASE,URINE SMALL (NEGATIVE); NITRITE,URINE NEGATIVE (NEGATIVE); PROTEIN,URINE 30 mg/dL (NEGATIVE); URINE SPECIFIC GRAVITY 1.014; UROBILINOGEN,URINE NEGATIVE mg/dL (<2.0)
[2019-07-23] MEDS ORDERED: METRONIDAZOLE 500 MG/NS RTU 500 MG/100 ML RTUPB IV ONE (02:19)
[2019-07-23] MEDS ORDERED: LEVOFLOXACIN 500 MG/D5W RTU 500 MG/100 ML RTUPB IV ONE (02:19)
[2019-07-23] MEDS ORDERED: VANCOMYCIN HCL INJ 500 MG VIAL PO ONE (03:01)
[2019-07-23 03:03] LABS: A TYPE INFLUENZA AG NEGATIVE (NEGATIVE); B INFLUENZA AG NEGATIVE (NEGATIVE)
[2019-07-23] MEDS ORDERED: VANCOMYCIN HCL INJ 500 MG VIAL ONE (03:10)
[2019-07-23] MEDS ORDERED: ACETAMINOPHEN 650 MG SUPP.RECT PR PRN (03:13)
[2019-07-23] MEDS ORDERED: ACETAMINOPHEN 325 MG TABLET PO PRN (03:13)
[2019-07-23] MEDS ORDERED: IPRATROPIUM/ALBUTEROL 0.5-2.5 MG/3 ML AMPUL NEB PRN (03:13)
[2019-07-23] MEDS ORDERED: ONDANSETRON HCL INJ/PF 4 MG/2 ML SDV IV PRN (03:13)
[2019-07-23] MEDS ORDERED: NORMAL SALINE 1000 ML 1,000 ML IV PRN (03:15)
[2019-07-23] MEDS ORDERED: IPRATROPIUM BROMIDE 0.02% NEB 0.5 MG/2.5 ML AMPUL NEB ONE ×2 (05:48)
[2019-07-23] MEDS ORDERED: LEVALBUTEROL HCL NEB 1.25 MG/3 ML AMPUL NEB ONE ×2 (05:48→05:49)
[2019-07-23] MEDS ORDERED: HEPARIN SOD (PORCINE) 5,000 UNIT/ML 1 ML VIAL SUBCUT SCH (06:00)
[2019-07-23] MEDS ORDERED: VANCOMYCIN HCL INJ 500 MG VIAL PO SCH (06:00)
[2019-07-23] MEDS ORDERED: NOREPINEPHRINE BITARTRATE INJ/PF 4 MG/4 ML SDV IV ONE ×2 (06:05→12:49)
[2019-07-23 06:23] LABS: ARTERIAL BLOOD H2CO3 1.12 mmol/L (1.05-1.35); ARTERIAL BLOOD HCO3 22.4 mmol/L (20-24); ARTERIAL BLOOD O2 SATURATION 95.6 % (94-98); ARTERIAL BLOOD PCO2 37.3 mmHg (35-45); ARTERIAL BLOOD PO2 77.9 mmHg (80-100); ARTERIAL BLOOD TOTAL CO2 23.5 mmol/L (21-25)
[2019-07-23 06:27] LABS: ARTERIAL BLOOD FIO2 30%
[2019-07-23] MEDS ORDERED: RINGERS SOLUTION,LACTATED 500 ML IV ONE (06:43)
--- NOTE | 2019-07-23 06:50 | Progress Note ---
Provider Note Provider Note: Date/Time: 07/23/2019 06:30am Procedure: arterial line Indication: Septic shock with AMS and inability to even ascertain a manual BP reading. Patient placed in proper procedural position followed by prepping and draping in usual sterile fashion. Utilizing ultrasound guidance, the right radial artery was identified and appears to be free of thrombus. After anesthetizing with 3 mL of 1% Lidocaine, a 20-gauge preloaded introducer needle with wire and catheter was visualized advancing into the right radial artery with return of blood in the preloaded kit. The guidewire was then advanced into the right radial artery and confirmed to be in the artery in 2 views utilizing ultrasound. The needle and guidewire were subsequently removed from the catheter in place, noting pulsatile blood from the catheter. The catheter was sutured into place, a Biopatch applied, connected to the appropriate arterial pressure tubing, and a sterile occlusive transparent dressing was applied. Good arterial waveform noted on the monitor with a systolic blood pressure of 65. Patient tolerated procedure well. EBL 3 cc Norepinephrine increased to 10 mcg/min, 500 mL LR bolus x1 ordered with improvement in BP to
[2019-07-23] MEDS ORDERED: RINGERS SOLUTION,LACTATED 1,000 ML IV ONE ×4 (07:41→12:54)
[2019-07-23] MEDS ORDERED: DEXTROSE 5%-WATER 250 ML with NOREPINEPHRINE BITARTRATE 4 MG IV PRN ×2 (07:55)
[2019-07-23] MEDS: IPRATROPIUM/ALBUTEROL 0.5-2.5 MG/3 ML AMPUL NEB SCH ×2 (08:31→20:12)
[2019-07-23 08:39] LABS: ANION GAP 10 (5-19); BLOOD UREA NITROGEN 43 mg/dL (7-20); CALCIUM 8.4 mg/dL (8.4-10.2); CARBON DIOXIDE 25 mmol/L (22-30); CHLORIDE 104 mmol/L (98-107); GLUCOSE 164 mg/dL (75-110); POTASSIUM 4.7 mmol/L (3.6-5.0)
[2019-07-23 08:42] LABS: HEMATOCRIT 30.1 % (36.0-47.0); MEAN CORPUSCULAR HEMOGLOBIN 33.2 pg (27.0-33.4); MEAN CORPUSCULAR HGB CONC 33.2 g/dL (32.0-36.0); MEAN CORPUSCULAR VOLUME 100 fl (80-97); PLATELET COUNT 212 10^3/uL (150-450); RED BLOOD COUNT 3.02 10^6/uL (3.72-5.28); RED CELL DISTRIBUTION WIDTH 18.7 % (11.5-14.0)
[2019-07-23 09:15] LABS: WHITE BLOOD COUNT 27.3 10^3/uL (4.0-10.5)
[2019-07-23 09:19] LABS: ABSOLUTE MONOCYTES # (MANUAL) 1.4 10^3/uL (0.1-1.4); BAND NEUTROPHILS % (MANUAL) 7 % (3-5); BASOPHILS % (MANUAL) 0 % (0-2); EOSINOPHILS % (MANUAL) 0 % (0-6); LYMPHOCYTES % (MANUAL) 0 % (13-45); MONOCYTES % (MANUAL) 5 % (3-13); SEGMENTED NEUTROPHILS % (MAN) 88 % (42-78); TOTAL CELLS COUNTED 100
[2019-07-23 09:21] LABS: TOXIC GRANULATION SLIGHT; TOXIC VACUOLATION PRESENT
[2019-07-23 09:22] LABS: ANISOCYTOSIS 2+; OVALOCYTES SLIGHT; PLATELET CLUMPS PRESENT; PLATELET COMMENT ADEQUATE; POLYCHROMASIA SLIGHT; TEAR DROP CELLS SLIGHT
[2019-07-23] MEDS: METRONIDAZOLE 500 MG/NS RTU 500 MG/100 ML RTUPB IV SCH ×3 (10:00→21:11)
[2019-07-23] MEDS: MAGNESIUM SULFATE/D5W 1 GM/100 ML RTUPB IV SCH ×2 (10:01→11:11)
--- NOTE | 2019-07-23 10:09 | CRITICAL CARE ADMISSION REPORT ---
HPI Date:: 07/23/19 Time:: 09:52 Reason for ICU Reason:: septic shock, c.diff colitis HPI: Pt is a 73 yo woman with COPD on 2 liters home O2, PNA, type II DM, HTN, STEPHANIE, afib, CHF, hypothyroidism who presented to the ED c/o as several day history of abdominal pain, N, V. She was found to be positive for c.diff and was started on oral vanc and flagyl. In the ED, she was hypotensive and got IVF. She was intially scheduled to be admitted to the hospitalist service to the [facility]. However, Dr. Contreras deemed her too sick to go to the [facility] and called and asked me to admit her to the ICU. Pt had a central line placed by the ED physician and was started on levophed prior to her admission to the ICU. She was also started on bipap in the ED. Upon arrival to the ICU, she is awake and alert on bipap. She is on levophed and her SBP is in the 90s. - Diagnosis/Plan (1) Septic shock Is this a current diagnosis for this admission?: Yes (2) C. difficile colitis Is this a current diagnosis for this admission?: Yes (3) MARY LOU (acute kidney injury) Is this a current diagnosis for this admission?: Yes (4) Acute and chronic respiratory failure Qualifiers: Respiratory failure complication: unspecified whether with hypoxia or hypercapnia Qualified Code(s): J96.20 - Acute and chronic respiratory failure, unspecified whether with hypoxia or hypercapnia Is this a current diagnosis for this admission?: Yes (5) COPD (chronic obstructive pulmonary disease) Qualifiers: COPD type: unspecified COPD Qualified Code(s): J44.9 - Chronic obstructive pulmonary disease, unspecified Is this a current diagnosis for this admission?: Yes (6) Diabetes Qualifiers: Diabetes mellitus type: type 2 Diabetes mellitus tank terminal gauger insulin use: without tank terminal gauger use Diabetes mellitus complication status: with hyperglycemia Qualified Code(s): E11.65 - Type 2 diabetes mellitus with hyperglycemia Is this a current diagnosis for this admission?: Yes Past Medical History Cardiac Medical History: Reports: Atrial Fibrillation, Congestive Heart Failure, Coronary Artery Disease, Myocardial Infarction, Hypertension Denies: DVT, Hyperlipidema, Pulmonary Embolism Pulmonary Medical History: Reports: Asthma, Bronchitis, Chronic Obstructive Pul monary Disease (COPD), Pneumonia, Respiratory Failure - Chronic respiratory failure, Sleep Apnea Denies: Tuberculosis Neurological Medical History: Denies: Seizures Endocrine Medical History: Reports: Diabetes Mellitus Type 2, Hypothyroidism Denies: Diabetes Mellitus Type 1, Hyperthyroidism Renal/ Medical History: Denies: End Stage Renal Disease Malignancy Medical History: Reports: Brain Cancer - Lung cancer with brain metastases, Breast Cancer, 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 GI Medical History: Reports: Gastroesophageal Reflux Disease Denies: Cirrhosis, Hepatitis Musculoskeltal Medical History: Reports: Arthritis, Gout Skin Medical History: Denies: Eczema, Psoriasis Psychiatric Medical History: Reports: Dementia, Depression Denies: Bipolar Disorder Hematology: Reports: Anemia, Bleeding Tendencies Infectious Medical History: Reports: Clostridium Difficile Past Surgical History Past Surgical History: Reports: Cholecystectomy, Orthopedic Surgery - Foot surgery, Other - Bilateral cataract surgery Social/Family History - Social History Lives with: Family Smoking Status: Unknown if Ever Smoked Frequency of Alcohol Use: None Hx Recreational Drug Use: No Drugs: None Hx Prescription Drug Abuse: No - Medication/Allergies Allergies/Adverse Reactions: azithromycin Allergy (Verified 12/30/18 17:18) cephalexin Allergy (Verified 12/30/18 17:18) Penicillins Allergy (Verified 12/30/18 17:18) amoxicillin [Amoxicillin] Adverse Reaction (Verified 12/30/18 17:18) visual hallucinations erythromycin base [Erythromycin Base] Adverse Reaction (Verified 12/30/18 17:18) visual hallucinations Potassium Clavulanate * [From Augmentin] Adverse Reaction (Verified 12/30/18 17:18) visual hallucinations Review of Systems Review of Systems: as per HPI Physical Exam Vital Signs: Temp Pulse Resp BP Pulse Ox 100.6 F H 118 H 23 H 95/68 L 100 07/23/19 08:00 07/23/19 08:31 07/23/19 08:31 07/23/19 08:00 07/23/19 08:31 Intake & Output 07/22/19 07/23/19 07/24/19 06:59 06:59 06:59 Intake Total 2105 541 Output Total 200 Balance 2105 341 Weight 84 kg 75.6 kg Weight/Height Weight 75.6 kg Height 5 ft 2 in General appearance: PRESENT: no acute distress, well-developed, well-nourished, other - awake, alert, on bipap Head exam: PRESENT: atraumatic, normocephalic Respiratory exam: PRESENT: unlabored, other - coarse breathsounds throughout Cardiovascular exam: PRESENT: tachycardia GI/Abdominal exam: PRESENT: soft, other - non-tender, non-distended Gentrourinary exam: PRESENT: indwelling catheter Extremities exam: PRESENT: other - no edema Neurological exam: PRESENT: alert, awake Laboratory/Radiographs Laboratory Results: 07/23/19 07:55 07/23/19 07:55 07/22/19 07/22/19 07/22/19 22:47 23:00 23:38 WBC Cancelled RBC Cancelled Hgb Cancelled Hct Cancelled MCV Cancelled MCH Cancelled MCHC Cancelled RDW Cancelled Plt Count Cancelled Seg Neutrophils % Cancelled Carbonic Acid HCO3/H2CO3 Ratio ABG pH ABG pCO2 ABG pO2 ABG HCO3 ABG O2 Saturation ABG Base Excess VBG pH VBG pCO2 VBG HCO3 VBG Base Excess FiO2 Sodium 137.2 Potassium 4.1 Chloride 95 L Carbon Dioxide 28 Anion Gap 14 BUN 43 H Creatinine 1.45 H Est GFR ( Amer) 43 L Glucose 179 H Lactic Acid Calcium 10.8 H Magnesium Total Bilirubin 0.6 AST 24 Alkaline Phosphatase 111 Total Protein 6.4 Albumin 3.8 Lipase 64.5 Urine Color Urine Appearance Urine pH Ur Specific [place] Urine Protein Urine Glucose (UA) Urine Ketones Urine Blood Urine Nitrite Ur Leukocyte Esterase Urine WBC (Auto) Urine RBC (Auto) Stl C.difficile Tox PCR POSITIVE 07/22/19 07/22/19 07/23/19 23:38 23:38 00:42 WBC 5.2 RBC 3.55 L Hgb 11.6 L Hct 35.3 L MCV 100 H MCH 32.7 MCHC 32.9 RDW 18.4 H Plt Count 164 Seg Neutrophils % Not Reportable Carbonic Acid HCO3/H2CO3 Ratio ABG pH ABG pCO2 ABG pO2 ABG HCO3 ABG O2 Saturation ABG Base Excess VBG pH 7.23 L VBG pCO2 92.0 H* VBG HCO3 37.8 H VBG Base Excess 7.3 FiO2 Sodium Potassium Chloride Carbon Dioxide Anion Gap BUN Creatinine Est GFR ( Amer) Glucose Lactic Acid 4.6 H Calcium Magnesium Total Bilirubin AST Alkaline Phosphatase Total Protein Albumin Lipase Urine Color Urine Appearance Urine pH Ur Specific [place] Urine Protein Urine Glucose (UA) Urine Ketones Urine Blood Urine Nitrite Ur Leukocyte Esterase Urine WBC (Auto) Urine RBC (Auto) Stl C.difficile Tox PCR 07/23/19 07/23/19 07/23/19 01:25 05:51 07:55 WBC RBC Hgb Hct MCV MCH MCHC RDW Plt Count Seg Neutrophils % Carbonic Acid 1.12 HCO3/H2CO3 Ratio 20:1 ABG pH 7.40 ABG pCO2 37.3 ABG pO2 77.9 L ABG HCO3 22.4 ABG O2 Saturation 95.6 ABG Base Excess -2.0 VBG pH VBG pCO2 VBG HCO3 VBG Base Excess FiO2 30% Sodium Potassium Chloride Carbon Dioxide Anion Gap BUN Creatinine Est GFR ( Amer) Glucose Lactic Acid 4.5 H Calcium Magnesium Total Bilirubin AST Alkaline Phosphatase Total Protein Albumin Lipase Urine Color YELLOW Urine Appearance SLIGHTLY-CLOUDY Urine pH 5.0 Ur Specific [place] 1.014 Urine Protein 30 H Urine Glucose (UA) NEGATIVE Urine Ketones NEGATIVE Urine Blood NEGATIVE Urine Nitrite NEGATIVE Ur Leukocyte Esterase SMALL H Urine WBC (Auto) 21 Urine RBC (Auto) 24 Stl C.difficile Tox PCR 07/23/19 07/23/19 07:55 07:55 WBC 27.3 H D RBC 3.02 L Hgb 10.0 L Hct 30.1 L MCV 100 H MCH 33.2 MCHC 33.2 RDW 18.7 H Plt Count 212 Seg Neutrophils % Not Reportable Carbonic Acid HCO3/H2CO3 Ratio ABG pH ABG pCO2 ABG pO2 ABG HCO3 ABG O2 Saturation ABG Base Excess VBG pH VBG pCO2 VBG HCO3 VBG Base Excess FiO2 Sodium 139.3 Potassium 4.7 Chloride 104 Carbon Dioxide 25 Anion Gap 10 BUN 43 H Creatinine 1.66 H Est GFR ( Amer) 36 L Glucose 164 H Lactic Acid Calcium 8.4 Magnesium 1.5 L Total Bilirubin AST Alkaline Phosphatase Total Protein Albumin Lipase Urine Color Urine Appearance Urine pH Ur Specific [place] Urine Protein Urine Glucose (UA) Urine Ketones Urine Blood Urine Nitrite Ur Leukocyte Esterase Urine WBC (Auto) Urine RBC (Auto) Stl C.difficile Tox PCR 07/22/19 23:38 Troponin I 0.033 Impressions: Chest X-Ray 07/22/19 23:20 IMPRESSION: No acute cardiopulmonary process copyright 2011 [email or web address]- All Rights Reserved Abdomen/Pelvis CT 07/23/19 00:39 IMPRESSION: Findings suggestive of mild acute sigmoid diverticulitis. Multiple other incidental findings, as above TECHNICAL DOCUMENTATION: Quality ID # [id number]: Final reports with documentation of one or more dose reduction techniques (e.g., Automated exposure control, adjustment of the mA and/or kV according to patient size, use of iterative reconstruction technique) copyright 2011 [email or web address]- All Rights Reserved All labs, radiographs, diagnostic studies and EKGs were personally reviewed: Yes In addition, reports of radiographic and diagnostic studies were read: Yes Critical Time Critical Time (minutes): 60 -: The care of a critically ill patient is dynamic. This note represents a static moment in the admission process. Orders and treatments may be given simultaneously and urgently, and time is not clearance representative of the treatment process. This patient requires Critical Care secondary to life threatening organ or limb dysfunction. Without Critical Care services, the patient is at risk for increased mortality and morbidity. Provider Note Provider Note: Assessment: critically ill 73 yo woman with septic shock, c.diff colitis, MARY LOU, type II DM, COPD on home O2, acute on chronic respiratory failure, STEPHANIE, type II DM, h/o afib Plan: 1. Respiratory: acute on chronic respiratory failure. Continue bipap and wean to NC as tolerated 2. Pulmonary: COPD, breathing treatments 3. CV: hypotension and tachycardia due to septic shock. Continue aggressive fluid resuscitation. Continue levophed. Pt has h/o afib, is currently with sinus tachycardia. 4. ID: septic shock due to c.diff colitis. Increase po vanc to 500 mg QID. Continue IV flagyl 5. Renal: MARY LOU due to septic shock. Cotinue IVF 7. Endocrine: Type II DM. Accuchecks, SSI. Hypothyroidism 8. Nutrition: NPO 9. Prophylaxis: scds, sq heparin 10.Staff to obtain list of home meds Critical care time= 50 min, excluding procedures
[2019-07-23] MEDS ORDERED: DEXTROSE 50%-WATER 25 GM/50 ML DISP.SYRIN IV PRN ×2 (10:49)
[2019-07-23] MEDS ORDERED: GLUCAGON,HUMAN RECOMB 1 MG INJ IM PRN (10:49)
[2019-07-23] MEDS ORDERED: DEXTROSE 40% GEL 15 GM TUBE PO PRN ×2 (10:49)
[2019-07-23] MEDS: INSULIN REG, HUMAN 100 UNIT/ML 3 ML VIAL (PYX) SUBCUT SCH ×3 (11:18→23:34)
[2019-07-23] MEDS: RINGERS SOLUTION,LACTATED 1,000 ML IV PRN ×2 (11:54→19:21)
[2019-07-23] MEDS: VANCOMYCIN HCL INJ 500 MG VIAL PO SCH ×3 (11:54→23:39)
[2019-07-23] MEDS: DEXTROSE 5%-WATER 250 ML with NOREPINEPHRINE BITARTRATE 4 MG IV PRN ×4 (12:56→19:20)
[2019-07-23] MEDS: HYDROCORTISONE SOD SUCCINATE INJ/PF 100 MG/2 ML SDV IV SCH ×2 (14:22→21:10)
--- NOTE | 2019-07-23 20:18 | EKG REPORT ---
SEVERITY:- ABNORMAL ECG - SINUS OR ECTOPIC ATRIAL TACHYCARDIA RBBB AND LAFB : Confirmed by: Susan Mishra MD 23-Jul-2019 20:17:43
[2019-07-23] MEDS: ACETAMINOPHEN 325 MG TABLET PO PRN (21:11)
[2019-07-24] MEDS: METRONIDAZOLE 500 MG/NS RTU 500 MG/100 ML RTUPB IV SCH ×3 (03:19→14:35)
[2019-07-24 04:14] LABS: ANION GAP 6 (5-19); BLOOD UREA NITROGEN 27 mg/dL (7-20); CALCIUM 7.3 mg/dL (8.4-10.2); CARBON DIOXIDE 27 mmol/L (22-30); CHLORIDE 106 mmol/L (98-107); GLUCOSE 119 mg/dL (75-110); POTASSIUM 4.1 mmol/L (3.6-5.0)
[2019-07-24] MEDS ORDERED: NORMAL SALINE INJ/PF 0.9% 10 ML SDV IV PRN (04:26)
[2019-07-24] MEDS: INSULIN REG, HUMAN 100 UNIT/ML 3 ML VIAL (PYX) SUBCUT SCH ×3 (05:46→17:20)
[2019-07-24] MEDS: VANCOMYCIN HCL INJ 500 MG VIAL PO SCH ×3 (05:49→17:20)
[2019-07-24] MEDS: HYDROCORTISONE SOD SUCCINATE INJ/PF 100 MG/2 ML SDV IV SCH ×2 (05:49→14:35)
[2019-07-24 06:21] LABS: HEMATOCRIT 23.3 % (36.0-47.0); MEAN CORPUSCULAR HGB CONC 32.8 g/dL (32.0-36.0); MEAN CORPUSCULAR VOLUME 101 fl (80-97); PLATELET COUNT 134 10^3/uL (150-450); RED BLOOD COUNT 2.31 10^6/uL (3.72-5.28); RED CELL DISTRIBUTION WIDTH 18.6 % (11.5-14.0); WHITE BLOOD COUNT 17.7 10^3/uL (4.0-10.5)
[2019-07-24 06:55] LABS: ABSOLUTE LYMPHOCYTES# (MANUAL) 0.4 10^3/uL (0.5-4.7); ABSOLUTE MONOCYTES # (MANUAL) 0.7 10^3/uL (0.1-1.4); BAND NEUTROPHILS % (MANUAL) 3 % (3-5); BASOPHILS % (MANUAL) 0 % (0-2); EOSINOPHILS % (MANUAL) 0 % (0-6); HEMOGLOBIN 7.6 g/dL (12.0-15.5); LYMPHOCYTES % (MANUAL) 2 % (13-45); MONOCYTES % (MANUAL) 4 % (3-13); SEGMENTED NEUTROPHILS % (MAN) 91 % (42-78); TOTAL CELLS COUNTED 100
[2019-07-24 06:56] LABS: BURR CELLS SLIGHT; OVALOCYTES SLIGHT; POIKILOCYTOSIS SLIGHT; SCHISTOCYTES SLIGHT; TEAR DROP CELLS SLIGHT; TOXIC GRANULATION SLIGHT
[2019-07-24 06:58] LABS: PLATELET COMMENT DECREASED
[2019-07-24 07:42] LABS: ARTERIAL BLOOD BASE EXCESS 1.1 mmol/L; ARTERIAL BLOOD H2CO3 1.86 mmol/L (1.05-1.35); ARTERIAL BLOOD HCO3 28.3 mmol/L (20-24); ARTERIAL BLOOD O2 SATURATION 84.1 % (94-98); ARTERIAL BLOOD PCO2 61.7 mmHg (35-45); ARTERIAL BLOOD PH 7.28 (7.35-7.45); ARTERIAL BLOOD PO2 55.3 mmHg (80-100); ARTERIAL BLOOD TOTAL CO2 30.2 mmol/L (21-25)
[2019-07-24 07:43] LABS: ARTERIAL BLOOD FIO2 2L
[2019-07-24] MEDS: IPRATROPIUM/ALBUTEROL 0.5-2.5 MG/3 ML AMPUL NEB SCH ×2 (08:26→21:05)
[2019-07-24] MEDS: RINGERS SOLUTION,LACTATED 1,000 ML IV PRN ×2 (08:59→19:30)
--- NOTE | 2019-07-24 09:37 | PDOC CRITICAL CARE PROG REPORT ---
General Date:: 07/24/19 - Critical Care Attending Note Events in the past 12 to 24 Hours:: Pt is off levophed. Is off bipap. States she feels better. Denies any abdominal pain. Nurse reports no stools. Reason for ICU Addmission:: septic shock, c.diff colitis Physical Exam Vital Signs: Temp Pulse Resp BP Pulse Ox 99.0 F 112 H 20 107/78 100 07/24/19 07:51 07/24/19 08:26 07/24/19 08:26 07/24/19 07:51 07/24/19 08:26 Intake & Output 07/23/19 07/24/19 07/25/19 06:59 06:59 06:59 Intake Total 2105 7040 Output Total 1835 Balance 2105 5205 Weight 84 kg 79.2 kg Weight/Height Weight 79.2 kg Height 5 ft 2 in General appearance: PRESENT: no acute distress, well-developed, well-nourished Head exam: PRESENT: atraumatic, normocephalic Respiratory exam: PRESENT: unlabored, wheezes Cardiovascular exam: PRESENT: RRR GI/Abdominal exam: PRESENT: soft Gentrourinary exam: PRESENT: indwelling catheter Extremities exam: PRESENT: other - no edema Neurological exam: PRESENT: alert, awake Psychiatric exam: PRESENT: appropriate affect Laboratory/Radiographs Laboratory Results: 07/24/19 05:40 07/24/19 03:45 07/24/19 07/24/19 07/24/19 03:45 03:45 05:40 WBC Cancelled 17.7 H RBC Cancelled 2.31 L Hgb Cancelled 7.6 L D Hct Cancelled 23.3 L MCV Cancelled 101 H MCH Cancelled 33.0 MCHC Cancelled 32.8 RDW Cancelled 18.6 H Plt Count Cancelled 134 L Seg Neutrophils % Cancelled Not Reportable Carbonic Acid HCO3/H2CO3 Ratio ABG pH ABG pCO2 ABG pO2 ABG HCO3 ABG O2 Saturation ABG Base Excess FiO2 Sodium 139.3 Potassium 4.1 Chloride 106 Carbon Dioxide 27 Anion Gap 6 BUN 27 H Creatinine 0.97 Est GFR ( Amer) > 60 Glucose 119 H Calcium 7.3 L Magnesium 2.1 07/24/19 07:35 WBC RBC Hgb Hct MCV MCH MCHC RDW Plt Count Seg Neutrophils % Carbonic Acid 1.86 H HCO3/H2CO3 Ratio 15:1 ABG pH 7.28 L ABG pCO2 61.7 H ABG pO2 55.3 L ABG HCO3 28.3 H ABG O2 Saturation 84.1 L ABG Base Excess 1.1 FiO2 2L Sodium Potassium Chloride Carbon Dioxide Anion Gap BUN Creatinine Est GFR ( Amer) Glucose Calcium Magnesium 07/22/19 23:38 Troponin I 0.033 Impressions: Chest X-Ray 07/22/19 23:20 IMPRESSION: No acute cardiopulmonary process copyright 2010 [employer]- All Rights Reserved Abdomen/Pelvis CT 07/23/19 00:39 IMPRESSION: Findings suggestive of mild acute sigmoid diverticulitis. Multiple other incidental findings, as above TECHNICAL DOCUMENTATION: Quality ID # 436: Final reports with documentation of one or more dose reduction techniques (e.g., Automated exposure control, adjustment of the mA and/or kV according to patient size, use of iterative reconstruction technique) copyright 2010 [employer]- All Rights Reserved Assessment and Plan - Diagnosis (1) Septic shock Is this a current diagnosis for this admission?: Yes (2) C. difficile colitis Is this a current diagnosis for this admission?: Yes (3) MARY LOU (acute kidney injury) Is this a current diagnosis for this admission?: Yes (4) Acute and chronic respiratory failure Qualifiers: Respiratory failure complication: unspecified whether with hypoxia or hypercapnia Qualified Code(s): J96.20 - Acute and chronic respiratory failure, unspecified whether with hypoxia or hypercapnia Is this a current diagnosis for this admission?: Yes (5) COPD (chronic obstructive pulmonary disease) Qualifiers: COPD type: unspecified COPD Qualified Code(s): J44.9 - Chronic obstructive pulmonary disease, unspecified Is this a current diagnosis for this admission?: Yes (6) Diabetes Qualifiers: Diabetes mellitus type: type 2 Diabetes mellitus mcc insulin use: without joint terminal attack controller use Diabetes mellitus complication status: with hyperglycemia Qualified Code(s): E11.65 - Type 2 diabetes mellitus with hyperglycemia Is this a current diagnosis for this admission?: Yes Plan Summary: Assessment: 73 yo woman with septic shock, c.diff colitis, MARY LOU, type II DM, COPD on home O2, acute on chronic respiratory failure, STEPHANIE, type II DM, h/o afib Plan: 1. Respiratory: acute on chronic respiratory failure, resolved. Stable on NC. Continue bipap qhs and prn. 2. Pulmonary: COPD, breathing treatments 3. CV: hypotension and tachycardia due to septic shock, resolved. Pt is off leveophed. Continue IVF. Has h/o afib, but is in sinus rhythm 4. ID: severe sepsis due to c.diff colitis. Day 2 po vanc and IV flagyl 5. Renal: MARY LOU due to septic shock, resolving. Cr is 0.97 today. Continue IVF 7. Endocrine: Type II DM. Accuchecks, SSI. Hypothyroidism 8. Nutrition: diabetic diet 9. Prophylaxis: scds, sq heparin 10.Stable for transfer to telemetry. Critical Time Critical Time (minutes): 0 Level of Care: TELE -: 1. The care of a critical patient is a dynamic process. This note is a client care representative synopsis but static in nature. The timeframe for treatments given in order is not necessarily the actual time these treatments may have been done. 2. This patient requires critical care secondary to ongoing requirements for therapy not offered or safe outside the critical care environment. Transfer to a lower level of care will result in altered life or limb morbidity and mortality. 3. Multidisciplinary rounds completed. 4. ABCDE bundle addressed.
[2019-07-24] MEDS: LEVOTHYROXINE SODIUM 0.1 MG TABLET PO SCH (10:40)
[2019-07-24] MEDS: FAMOTIDINE 20 MG TABLET PO SCH (10:41)
[2019-07-24] MEDS: SERTRALINE HCL 50 MG TABLET PO SCH (10:41)
[2019-07-25] MEDS: HYDROCORTISONE SOD SUCCINATE INJ/PF 100 MG/2 ML SDV IV SCH ×2 (00:02→06:29)
[2019-07-25] MEDS: VANCOMYCIN HCL INJ 500 MG VIAL PO SCH ×4 (00:02→17:47)
[2019-07-25] MEDS: METRONIDAZOLE 500 MG/NS RTU 500 MG/100 ML RTUPB IV SCH ×5 (00:02→21:27)
[2019-07-25] MEDS: INSULIN REG, HUMAN 100 UNIT/ML 3 ML VIAL (PYX) SUBCUT SCH ×4 (01:31→18:05)
[2019-07-25] MEDS: ACETAMINOPHEN 325 MG TABLET PO PRN (02:08)
[2019-07-25] MEDS ORDERED: ALBUTEROL SULFATE 0.083% NEB 2.5 MG/3 ML AMPUL NEB ONE (04:27)
[2019-07-25] MEDS ORDERED: FUROSEMIDE INJ/PF 20 MG/2 ML SDV IV ONE (04:42)
[2019-07-25] MEDS ORDERED: METOPROLOL TARTRATE PF/INJ 5 MG/5 ML SDV IV ONE (04:42)
--- NOTE | 2019-07-25 04:47 | RADIOLOGY REPORT (SQ) ---
CLINICAL HISTORY: SOB, CP, audible wheezing COMPARISON: 07/23/2019. TECHNIQUE: XR CHEST 1 VIEW 07/25/2019 12:00 AM [employer] FINDINGS: Cardiac silhouette is normal in size. There is a right hilar masslike consolidation. There is no pleural effusion. There is no pneumothorax. There are no acute osseous findings. IMPRESSION: Slightly increasing right hilar consolidation.
[2019-07-25 04:50] LABS: HEMATOCRIT 25.7 % (36.0-47.0); HEMOGLOBIN 8.4 g/dL (12.0-15.5); MEAN CORPUSCULAR HEMOGLOBIN 33.1 pg (27.0-33.4); MEAN CORPUSCULAR HGB CONC 32.7 g/dL (32.0-36.0); MEAN CORPUSCULAR VOLUME 101 fl (80-97); PLATELET COUNT 145 10^3/uL (150-450); RED BLOOD COUNT 2.54 10^6/uL (3.72-5.28); RED CELL DISTRIBUTION WIDTH 18.2 % (11.5-14.0)
[2019-07-25 05:02] LABS: ANION GAP 7 (5-19); BLOOD UREA NITROGEN 22 mg/dL (7-20); CARBON DIOXIDE 28 mmol/L (22-30); CHLORIDE 108 mmol/L (98-107); GLUCOSE 172 mg/dL (75-110); POTASSIUM 3.8 mmol/L (3.6-5.0)
[2019-07-25 05:03] LABS: ABSOLUTE LYMPHOCYTES# (MANUAL) 0.2 10^3/uL (0.5-4.7); ABSOLUTE MONOCYTES # (MANUAL) 0.4 10^3/uL (0.1-1.4); BAND NEUTROPHILS % (MANUAL) 3 % (3-5); BASOPHILS % (MANUAL) 0 % (0-2); EOSINOPHILS % (MANUAL) 0 % (0-6); LYMPHOCYTES % (MANUAL) 1 % (13-45); MONOCYTES % (MANUAL) 2 % (3-13); SEGMENTED NEUTROPHILS % (MAN) 94 % (42-78); TOTAL CELLS COUNTED 100
[2019-07-25 05:04] LABS: ANISOCYTOSIS 2+; HYPOCHROMASIA SLIGHT; POLYCHROMASIA SLIGHT; SCHISTOCYTES SLIGHT; TOXIC GRANULATION 1+
[2019-07-25 05:05] LABS: PLATELET COMMENT DECREASED
[2019-07-25] MEDS: LEVOTHYROXINE SODIUM 0.1 MG TABLET PO SCH (06:29)
[2019-07-25] MEDS: IPRATROPIUM/ALBUTEROL 0.5-2.5 MG/3 ML AMPUL NEB SCH ×2 (08:04→20:49)
[2019-07-25] MEDS: SERTRALINE HCL 50 MG TABLET PO SCH (09:21)
[2019-07-25] MEDS: FAMOTIDINE 20 MG TABLET PO SCH (09:21)
--- NOTE | 2019-07-25 10:18 | PDOC CRITICAL CARE PROG REPORT ---
General Date:: 07/25/19 - Critical Care Attending Note Events in the past 12 to 24 Hours:: Pt was hypertensive and tachycardic last night. Got lasix and IV lopressor. Today she is off her bipap and she states she ate her breakfast, but didn't like it. Reason for ICU Addmission:: septic shock, c.diff colitis - Medications: Medications reviewed and adjusted accordingly: Yes Physical Exam Vital Signs: Temp Pulse Resp BP Pulse Ox 99.0 F 90 17 139/96 H 100 07/25/19 08:00 07/25/19 08:09 07/25/19 08:09 07/25/19 08:00 07/25/19 08:09 Intake & Output 07/24/19 07/25/19 07/26/19 06:59 06:59 06:59 Intake Total 7040 2450 Output Total 1835 655 750 Balance 5205 1795 -750 Weight 79.2 kg 86 kg Weight/Height Weight 86 kg Height 5 ft 2 in General appearance: PRESENT: no acute distress, well-developed, well-nourished Head exam: PRESENT: atraumatic, normocephalic Respiratory exam: PRESENT: rhonchi, unlabored Cardiovascular exam: PRESENT: RRR GI/Abdominal exam: PRESENT: soft, other - non-tender, non-distended Psychiatric exam: PRESENT: appropriate affect Laboratory/Radiographs Laboratory Results: 07/25/19 04:37 07/25/19 04:37 07/25/19 07/25/19 04:37 04:37 WBC 20.0 H RBC 2.54 L Hgb 8.4 L Hct 25.7 L MCV 101 H MCH 33.1 MCHC 32.7 RDW 18.2 H Plt Count 145 L Seg Neutrophils % Not Reportable Sodium 142.6 Potassium 3.8 Chloride 108 H Carbon Dioxide 28 Anion Gap 7 BUN 22 H Creatinine 0.85 Est GFR ( Amer) > 60 Glucose 172 H Calcium 8.0 L Magnesium 2.2 07/22/19 22:47 Stool - Stool - Final 07/22/19 23:38 Troponin I 0.033 Impressions: Abdomen/Pelvis CT 07/23/19 00:39 IMPRESSION: Findings suggestive of mild acute sigmoid diverticulitis. Multiple other incidental findings, as above TECHNICAL DOCUMENTATION: Quality ID # 436: Final reports with documentation of one or more dose reduction techniques (e.g., Automated exposure control, adjustment of the mA and/or kV according to patient size, use of iterative reconstruction technique) copyright 2011 [employer]- All Rights Reserved Chest X-Ray 07/25/19 00:00 IMPRESSION: Slightly increasing right hilar consolidation. Assessment and Plan - Diagnosis (1) Septic shock Is this a current diagnosis for this admission?: Yes (2) C. difficile colitis Is this a current diagnosis for this admission?: Yes (3) MARY LOU (acute kidney injury) Is this a current diagnosis for this admission?: Yes (4) Acute and chronic respiratory failure Qualifiers: Respiratory failure complication: unspecified whether with hypoxia or hypercapnia Qualified Code(s): J96.20 - Acute and chronic respiratory failure, unspecified whether with hypoxia or hypercapnia Is this a current diagnosis for this admission?: Yes (5) COPD (chronic obstructive pulmonary disease) Qualifiers: COPD type: unspecified COPD Qualified Code(s): J44.9 - Chronic obstructive pulmonary disease, unspecified Is this a current diagnosis for this admission?: Yes (6) Diabetes Qualifiers: Diabetes mellitus type: type 2 Diabetes mellitus terminal clerk insulin use: without terminal clerk use Diabetes mellitus complication status: with hyperglycemia Qualified Code(s): E11.65 - Type 2 diabetes mellitus with hyperglycemia Is this a current diagnosis for this admission?: Yes Plan Summary: Assessment: 73 yo woman with septic shock, c.diff colitis, MARY LOU, type II DM, COPD on home O2, acute on chronic respiratory failure, STEPHANIE, type II DM, h/o afib Plan: 1. Respiratory: acute on chronic respiratory failure, resolved. Stable on NC. Continue bipap qhs and prn. 2. Pulmonary: COPD, breathing treatments 3. CV: hypertensive and tachycardic overnight. s/p IV lopressor and IV lasix. BP and heart rate acceptable this am. IVF stopped. 4. ID: severe sepsis due to c.diff colitis. Day 3 po vanc and IV flagyl 5. Renal: MARY LOU due to septic shock, resolving. Cr is 0.0.85 today. D/c IVF 7. Endocrine: Type II DM. Accuchecks, SSI. Hypothyroidism, on synthroid 8. Nutrition: diabetic diet 9. Prophylaxis: scds, sq heparin 10.Stable for transfer to telemetry. Critical Time Critical Time (minutes): 0 Level of Care: TELE -: 1. The care of a critical patient is a dynamic process. This note is a r epresentative synopsis but static in nature. The timeframe for treatments given in order is not necessarily the actual time these treatments may have been done. 2. This patient requires critical care secondary to ongoing requirements for therapy not offered or safe outside the critical care environment. Transfer to a lower level of care will result in altered life or limb morbidity and mortali ty. 3. Multidisciplinary rounds completed. 4. ABCDE bundle addressed.
[2019-07-25] MEDS: BUDESONIDE NEB 0.25 MG/2 ML AMPUL NEB SCH ×2 (10:53→20:49)
[2019-07-25] MEDS: ONDANSETRON HCL INJ/PF 4 MG/2 ML SDV IV PRN (12:55)
[2019-07-25] MEDS: HEPARIN SOD (PORCINE) 5,000 UNIT/ML 1 ML VIAL SUBCUT SCH ×2 (14:57→21:27)
--- NOTE | 2019-07-25 16:27 | EKG REPORT ---
SEVERITY:- ABNORMAL ECG - SINUS TACHYCARDIA MULTIPLE VENTRICULAR PREMATURE COMPLEXES RIGHT BUNDLE BRANCH BLOCK : Confirmed by: Susan Mishra MD 25-Jul-2019 16:26:00
[2019-07-25] MEDS: LORAZEPAM 1 MG TABLET PO SCH (17:47)
[2019-07-26] MEDS: INSULIN REG, HUMAN 100 UNIT/ML 3 ML VIAL (PYX) SUBCUT SCH ×3 (00:11→18:41)
[2019-07-26] MEDS: VANCOMYCIN HCL INJ 500 MG VIAL PO SCH ×4 (01:09→17:40)
[2019-07-26] MEDS: METRONIDAZOLE 500 MG/NS RTU 500 MG/100 ML RTUPB IV SCH ×4 (02:43→21:51)
[2019-07-26] MEDS: LEVOTHYROXINE SODIUM 0.1 MG TABLET PO SCH (05:44)
[2019-07-26] MEDS: LORAZEPAM 1 MG TABLET PO SCH ×2 (05:44→17:40)
[2019-07-26] MEDS: HEPARIN SOD (PORCINE) 5,000 UNIT/ML 1 ML VIAL SUBCUT SCH ×3 (05:44→21:51)
[2019-07-26 06:38] LABS: ABSOLUTE LYMPHOCYTES (AUTO) 0.9 10^3/uL (0.5-4.7); ABSOLUTE MONOCYTES (AUTO) 0.6 10^3/uL (0.1-1.4); ABSOLUTE NEUT (AUTO) 11.1 10^3/uL (1.7-8.2); BASOPHILS % (AUTO) 0.2 % (0-2); EOSINOPHILS % (AUTO) 0.2 % (0-6); HEMATOCRIT 27.9 % (36.0-47.0); HEMOGLOBIN 9.1 g/dL (12.0-15.5); LYMPHOCYTES % (AUTO) 7.4 % (13-45); MEAN CORPUSCULAR HEMOGLOBIN 33.1 pg (27.0-33.4); MEAN CORPUSCULAR HGB CONC 32.8 g/dL (32.0-36.0); MEAN CORPUSCULAR VOLUME 101 fl (80-97); MONOCYTES % (AUTO) 4.5 % (3-13); PLATELET COUNT 139 10^3/uL (150-450); RED BLOOD COUNT 2.77 10^6/uL (3.72-5.28); RED CELL DISTRIBUTION WIDTH 17.8 % (11.5-14.0); SEGMENTED NEUTROPHILS % (AUTO) 87.7 % (42-78); TOTAL CELLS COUNTED % (AUTO) 100 %; WHITE BLOOD COUNT 12.7 10^3/uL (4.0-10.5)
[2019-07-26 07:06] LABS: ANION GAP 9 (5-19); BLOOD UREA NITROGEN 19 mg/dL (7-20); CARBON DIOXIDE 29 mmol/L (22-30); CHLORIDE 107 mmol/L (98-107); GLUCOSE 83 mg/dL (75-110); POTASSIUM 3.1 mmol/L (3.6-5.0)
[2019-07-26] MEDS: BUDESONIDE NEB 0.25 MG/2 ML AMPUL NEB SCH ×2 (08:12→20:20)
[2019-07-26] MEDS: IPRATROPIUM/ALBUTEROL 0.5-2.5 MG/3 ML AMPUL NEB SCH ×2 (08:13→20:20)
[2019-07-26] MEDS: SERTRALINE HCL 50 MG TABLET PO SCH (10:33)
[2019-07-26] MEDS: FUROSEMIDE 20 MG TABLET PO SCH (10:33)
[2019-07-26] MEDS: FLUTICASONE/VILANTEROL 200-25 MCG/DOSE IH SCH (10:38)
[2019-07-26] MEDS: FAMOTIDINE 20 MG TABLET PO SCH (13:30)
--- NOTE | 2019-07-26 17:41 | PDOC PROGRESS REPORT ---
Subjective Progress Note for:: 07/26/19 Subjective:: 73-year-old female past medical history of COPD on 2 liters home O2, PNA, type II DM, HTN, STEPHANIE, afib, CHF, hypothyroidism who presented to the ED c/o as several day history of abdominal pain, N, V. She was found to be positive for c.diff and was started on oral vanc and flagyl. In the ED, she was hypotensive and got IVF. Pt had a central line placed by the ED physician and was started on levophed prior to her admission to the ICU. She was also started on bipap in the ED. Upon arrival to the ICU, she is awake and alert on bipap. She is on levophed and her SBP is in the 90s. 07/26/2019. No acute events overnight. This morning patient noted to be very lethargic but arousable, was started on BiPAP with some improvement of her somnolence. Diarrhea has resolved. Reason For Visit: SEPSIS, C DIFF ARF Physical Exam Vital Signs: Temp Pulse Resp BP Pulse Ox 98.3 F 96 17 131/84 H 97 07/26/19 15:57 07/26/19 15:57 07/26/19 16:43 07/26/19 15:57 07/26/19 16:43 Intake & Output 07/25/19 07/26/19 07/27/19 06:59 06:59 06:59 Intake Total 2450 1340 100 Output Total 655 2400 550 Balance 1795 -1060 -450 Weight 86 kg 86.1 kg 86.1 kg General appearance: PRESENT: no acute distress, morbidly obese, well-developed, well-nourished, other - Somnolent. Arousable. Head exam: PRESENT: atraumatic, normocephalic Respiratory exam: PRESENT: decreased breath sounds. ABSENT: rales, rhonchi, wheezes Cardiovascular exam: PRESENT: RRR. ABSENT: diastolic murmur, rubs, systolic murmur GI/Abdominal exam: PRESENT: normal bowel sounds, soft. ABSENT: distended, guarding, mass, organolmegaly, rebound, tenderness Neurological exam: PRESENT: alert, awake, oriented to person, oriented to place, oriented to time, oriented to situation, CN II-XII grossly intact. ABSENT: motor sensory deficit Results Laboratory Results: 07/26/19 06:07 07/26/19 06:07 07/26/19 07/26/19 06:07 06:07 WBC 12.7 H RBC 2.77 L Hgb 9.1 L Hct 27.9 L MCV 101 H MCH 33.1 MCHC 32.8 RDW 17.8 H Plt Count 139 L Seg Neutrophils % 87.7 H Sodium 144.5 Potassium 3.1 L Chloride 107 Carbon Dioxide 29 Anion Gap 9 BUN 19 Creatinine 0.90 Est GFR ( Amer) > 60 Glucose 83 Calcium 8.0 L Magnesium 2.2 07/22/19 22:47 Stool - Stool - Final 07/22/19 22:47 Stool - Stool Stool Culture - Final NO SALMONELLA, SHIGELLA, CAMPYLOBACTER, OR E.COLI 0157 RECOVERED. NEGATIVE FOR SHIGA TOXINS 1&2. 07/22/19 23:38 Troponin I 0.033 Impressions: Abdomen/Pelvis CT 07/23/19 00:39 IMPRESSION: Findings suggestive of mild acute sigmoid diverticulitis. Multiple other incidental findings, as above TECHNICAL DOCUMENTATION: Quality ID # 436: Final reports with documentation of one or more dose reduction techniques (e.g., Automated exposure control, adjustment of the mA and/or kV according to patient size, use of iterative reconstruction technique) copyright 2011 [employer]- All Rights Reserved Chest X-Ray 07/25/19 00:00 IMPRESSION: Slightly increasing right hilar consolidation. Assessment and Plan - Diagnosis (1) C. difficile colitis Is this a current diagnosis for this admission?: Yes Plan: Improving. Patient has not had any diarrhea. Mild leukocytosis. Afebrile. MARY LOU has resolved. Day 3 antibiotics. Day 3 p.o. vancomycin. Day 3 IV metronidazole. Continue p.o. and IV antibiotics. Monitor volume status. Monitor electrolytes and replace as needed. (2) Acute and chronic respiratory failure Qualifiers: Respiratory failure complication: hypoxia and hypercapnia Qualified Code(s): J96.21 - Acute and chronic respiratory failure with hypoxia; J96.22 - Acute and chronic respiratory failure with hypercapnia Is this a current diagnosis for this admission?: Yes Plan: Acute on chronic respiratory failure. History of COPD. Oxygen dependent. Chest x-ray negative any acute changes. Continue scheduled BiPAP, duo nebs, IV steroids, LABA, LABA, ICS. (3) COPD (chronic obstructive pulmonary disease) Qualifiers: COPD type: unspecified COPD Qualified Code(s): J44.9 - Chronic obstructive pulmonary disease, unspecified Is this a current diagnosis for this admission?: Yes Plan: As per #2. (4) Septic shock Is this a current diagnosis for this admission?: Yes Plan: Due to acute C. difficile colitis. Resolved. (5) Acute kidney injury superimposed on CKD Is this a current diagnosis for this admission?: Yes Plan: Due to septic shock. Resolved. Monitor volume status and electrolytes. Avoid nephrotoxic meds. (6) Acute metabolic encephalopathy Is this a current diagnosis for this admission?: Yes Plan: Most likely due to acute hypercarbic respiratory failure. At baseline patient is alert and x3. Lives at home. Plan as per #1. Monitor for aspiration, fall and seizure. Monitor electrolyte replace as needed. (7) Diabetes Qualifiers: Diabetes mellitus type: type 2 Diabetes mellitus terminal carman insulin use: without terminal carman use Diabetes mellitus complication status: with hyperglycemia Qualified Code(s): E11.65 - Type 2 diabetes mellitus with hyperglycemia Is this a current diagnosis for this admission?: Yes Plan: Controlled Continue diabetic diet, sliding scale insulin, Accu-Chek, hypoglycemia protocol. (8) Hypothyroidism Qualifiers: Hypothyroidism type: acquired Qualified Code(s): E03.9 - Hypothyroidism, unspecified Is this a current diagnosis for this admission?: Yes Plan: Restart home meds.
[2019-07-26] MEDS ORDERED: POTASSI CL 20 MEQ/50 ML RIDER 20 MEQ/50 ML RTUPB IV ONE (17:46)
[2019-07-26] MEDS: METHYLPREDNISOLONE INJ 125 MG/2 ML SDV IV SCH (21:51)
[2019-07-26] MEDS ORDERED: METHYLPREDNISOLONE INJ 40 MG/1 ML SDV IV SCH (22:00)
[2019-07-26] MEDS ORDERED: IPRATROPIUM/ALBUTEROL 0.5-2.5 MG/3 ML AMPUL NEB SCH (22:00)
[2019-07-27] MEDS: VANCOMYCIN HCL INJ 500 MG VIAL PO SCH ×4 (00:46→18:00)
[2019-07-27] MEDS: IPRATROPIUM/ALBUTEROL 0.5-2.5 MG/3 ML AMPUL NEB SCH ×4 (02:26→20:04)
[2019-07-27] MEDS: METRONIDAZOLE 500 MG/NS RTU 500 MG/100 ML RTUPB IV SCH ×4 (03:30→20:02)
[2019-07-27] MEDS: LEVOTHYROXINE SODIUM 0.1 MG TABLET PO SCH (05:27)
[2019-07-27] MEDS: METHYLPREDNISOLONE INJ 125 MG/2 ML SDV IV SCH ×3 (05:27→21:22)
[2019-07-27] MEDS: LORAZEPAM 1 MG TABLET PO SCH ×2 (05:28→18:15)
[2019-07-27] MEDS: INSULIN REG, HUMAN 100 UNIT/ML 3 ML VIAL (PYX) SUBCUT SCH ×5 (05:28→21:22)
[2019-07-27] MEDS: HEPARIN SOD (PORCINE) 5,000 UNIT/ML 1 ML VIAL SUBCUT SCH ×3 (05:28→21:23)
[2019-07-27 06:50] LABS: ARTERIAL BLOOD BASE EXCESS 5.3 mmol/L; ARTERIAL BLOOD H2CO3 1.51 mmol/L (1.05-1.35); ARTERIAL BLOOD HCO3 30.7 mmol/L (20-24); ARTERIAL BLOOD PCO2 50.2 mmHg (35-45); ARTERIAL BLOOD PH 7.41 (7.35-7.45); ARTERIAL BLOOD PO2 81.8 mmHg (80-100); ARTERIAL BLOOD TOTAL CO2 32.3 mmol/L (21-25)
[2019-07-27 06:51] LABS: ARTERIAL BLOOD FIO2 28%
[2019-07-27 07:24] LABS: ABSOLUTE LYMPHOCYTES (AUTO) 0.7 10^3/uL (0.5-4.7); ABSOLUTE MONOCYTES (AUTO) 0.3 10^3/uL (0.1-1.4); ABSOLUTE NEUT (AUTO) 3.2 10^3/uL (1.7-8.2); BASOPHILS % (AUTO) 0.2 % (0-2); EOSINOPHILS % (AUTO) 0.6 % (0-6); HEMATOCRIT 25.1 % (36.0-47.0); HEMOGLOBIN 8.4 g/dL (12.0-15.5); LYMPHOCYTES % (AUTO) 15.7 % (13-45); MEAN CORPUSCULAR HEMOGLOBIN 33.3 pg (27.0-33.4); MEAN CORPUSCULAR HGB CONC 33.3 g/dL (32.0-36.0); MEAN CORPUSCULAR VOLUME 100 fl (80-97); MONOCYTES % (AUTO) 6.7 % (3-13); PLATELET COUNT 117 10^3/uL (150-450); RED BLOOD COUNT 2.51 10^6/uL (3.72-5.28); RED CELL DISTRIBUTION WIDTH 17.4 % (11.5-14.0); SEGMENTED NEUTROPHILS % (AUTO) 76.8 % (42-78); TOTAL CELLS COUNTED % (AUTO) 100 %; WHITE BLOOD COUNT 4.2 10^3/uL (4.0-10.5)
[2019-07-27 07:40] LABS: ANION GAP 6 (5-19); BLOOD UREA NITROGEN 15 mg/dL (7-20); CALCIUM 7.3 mg/dL (8.4-10.2); CARBON DIOXIDE 30 mmol/L (22-30); CHLORIDE 108 mmol/L (98-107); GLUCOSE 77 mg/dL (75-110)
[2019-07-27 07:45] LABS: POTASSIUM 2.9 mmol/L (3.6-5.0)
[2019-07-27] MEDS: BUDESONIDE NEB 0.25 MG/2 ML AMPUL NEB SCH ×2 (08:28→20:04)
--- NOTE | 2019-07-27 10:24 | PDOC PROGRESS REPORT ---
Subjective Progress Note for:: 07/27/19 Subjective:: 73-year-old female past medical history of COPD on 2 liters home O2, PNA, type II DM, HTN, STEPHANIE, afib, CHF, hypothyroidism who presented to the ED c/o as several day history of abdominal pain, N, V. She was found to be positive for c.diff and was started on oral vanc and flagyl. In the ED, she was hypotensive and got IVF. Pt had a central line placed by the ED physician and was started on levophed prior to her admission to the ICU. She was also started on bipap in the ED. Upon arrival to the ICU, she is awake and alert on bipap. She is on levophed and her SBP is in the 90s. 07/26/2019. No acute events overnight. This morning patient noted to be very lethargic but arousable, was started on BiPAP with some improvement of her somnolence. Diarrhea has resolved. 07/27/2019. No acute events overnight. Patient currently resting in bed having her breakfast, significant improvement of her mental status, alert oriented x3, noted to have significant wheezing, diarrhea has resolved. P.o. tolerant. Denies any chest pain, nausea, vomiting, diarrhea, constipation or any urinary symptoms. Reason For Visit: SEPSIS, C DIFF ARF Physical Exam Vital Signs: Temp Pulse Resp BP Pulse Ox 97.4 F 91 17 144/82 H 100 07/27/19 07:43 07/27/19 07:43 07/27/19 07:43 07/27/19 07:43 07/27/19 07:43 Intake & Output 07/26/19 07/27/19 07/28/19 06:59 06:59 06:59 Intake Total 1340 670 Output Total 2400 2150 Balance -1060 -1480 Weight 86.1 kg 89.8 kg General appearance: PRESENT: mild distress, morbidly obese Head exam: PRESENT: atraumatic, normocephalic Respiratory exam: PRESENT: decreased breath sounds, prolonged expiratory phas, wheezes. ABSENT: rales, rhonchi Cardiovascular exam: PRESENT: RRR. ABSENT: diastolic murmur, rubs, systolic murmur Pulses: PRESENT: normal dorsalis pedis pul GI/Abdominal exam: PRESENT: normal bowel sounds, soft. ABSENT: distended, guarding, mass, organolmegaly, rebound, tenderness Neurological exam: PRESENT: alert, awake, oriented to person, oriented to place, CN II-XII grossly intact. ABSENT: motor sensory deficit Results Laboratory Results: 07/27/19 06:26 07/27/19 06:26 07/27/19 07/27/19 07/27/19 06:26 06:26 06:30 WBC 4.2 RBC 2.51 L Hgb 8.4 L Hct 25.1 L MCV 100 H MCH 33.3 MCHC 33.3 RDW 17.4 H Plt Count 117 L Seg Neutrophils % 76.8 Carbonic Acid 1.51 H HCO3/H2CO3 Ratio 20:1 ABG pH 7.41 ABG pCO2 50.2 H ABG pO2 81.8 ABG HCO3 30.7 H ABG O2 Saturation 96.0 ABG Base Excess 5.3 FiO2 28% Sodium 144.3 Potassium 2.9 L* Chloride 108 H Carbon Dioxide 30 Anion Gap 6 BUN 15 Creatinine 0.70 Est GFR ( Amer) > 60 Glucose 77 Calcium 7.3 L Magnesium 1.8 07/22/19 23:38 Troponin I 0.033 Impressions: Abdomen/Pelvis CT 07/23/19 00:39 IMPRESSION: Findings suggestive of mild acute sigmoid diverticulitis. Multiple other incidental findings, as above TECHNICAL DOCUMENTATION: Quality ID # 436: Final reports with documentation of one or more dose reduction techniques (e.g., Automated exposure control, adjustment of the mA and/or kV according to patient size, use of iterative reconstruction technique) copyright 2011 [employer]- All Rights Reserved Chest X-Ray 07/25/19 00:00 IMPRESSION: Slightly increasing right hilar consolidation. Assessment and Plan - Diagnosis (1) C. difficile colitis Is this a current diagnosis for this admission?: Yes Plan: Resolved. Patient has not had any diarrhea. WBC WNL. Afebrile. Day 4 antibiotics. Day 4 p.o. vancomycin. Day 4 IV metronidazole. Continue p.o. and IV antibiotics. Monitor volume status. Monitor electrolytes and replace as needed. (2) Acute and chronic respiratory failure Qualifiers: Respiratory failure complication: hypoxia and hypercapnia Qualified Code(s): J96.21 - Acute and chronic respiratory failure with hypoxia; J96.22 - Acute and chronic respiratory failure with hypercapnia Is this a current diagnosis for this admission?: Yes Plan: Acute on chronic respiratory failure. History of COPD. Oxygen dependent. Chest x-ray negative any acute changes. Continue scheduled BiPAP, duo nebs, IV steroids, LABA, LABA, ICS. (3) COPD (chronic obstructive pulmonary disease) Qualifiers: COPD type: unspecified COPD Qualified Code(s): J44.9 - Chronic obstructive pulmonary disease, unspecified Is this a current diagnosis for this admission?: Yes Plan: As per #2. (4) Septic shock Is this a current diagnosis for this admission?: Yes Plan: Due to acute C. difficile colitis. Resolved. (5) Acute kidney injury superimposed on CKD Is this a current diagnosis for this admission?: Yes Plan: Due to septic shock. Resolved. Monitor volume status and electrolytes. Avoid nephrotoxic meds. (6) Acute metabolic encephalopathy Is this a current diagnosis for this admission?: Yes Plan: Resolved. Back to baseline. Most likely due to acute hypercarbic respiratory failure. At baseline patient is alert and x3. Lives at home. Plan as per #1. Monitor for aspiration, fall and seizure. Monitor electrolyte replace as needed. (7) Diabetes Qualifiers: Diabetes mellitus type: type 2 Diabetes mellitus manager intermediate insulin use: without fpc use Diabetes mellitus complication status: with hyperglycemia Qualified Code(s): E11.65 - Type 2 diabetes mellitus with hyperglycemia Is this a current diagnosis for this admission?: Yes Plan: Controlled Continue diabetic diet, sliding scale insulin, Accu-Chek, hypoglycemia protocol. (8) Hypothyroidism Qualifiers: Hypothyroidism type: acquired Qualified Code(s): E03.9 - Hypothyroidism, unspecified Is this a current diagnosis for this admission?: Yes Plan: Restart home meds. (9) Hypokalemia Is this a current diagnosis for this admission?: Yes Plan: Likely due to GI losses. Replace as needed. Potassium level tomorrow.
[2019-07-27] MEDS ORDERED: POTASSIUM CHLORIDE 10 MEQ TABLET.ER PO ONE (10:30)
[2019-07-27] MEDS: SERTRALINE HCL 50 MG TABLET PO SCH (10:49)
[2019-07-27] MEDS: FAMOTIDINE 20 MG TABLET PO SCH (10:49)
[2019-07-27] MEDS: FUROSEMIDE 20 MG TABLET PO SCH (10:49)
[2019-07-27] MEDS: IPRATROPIUM/ALBUTEROL 0.5-2.5 MG/3 ML AMPUL NEB PRN (15:55)
[2019-07-27] MEDS: FLUTICASONE/VILANTEROL 200-25 MCG/DOSE IH SCH (17:59)
[2019-07-27] MEDS: ONDANSETRON HCL INJ/PF 4 MG/2 ML SDV IV PRN (21:23)
[2019-07-28] MEDS: VANCOMYCIN HCL INJ 500 MG VIAL PO SCH ×5 (00:30→23:16)
[2019-07-28] MEDS: IPRATROPIUM/ALBUTEROL 0.5-2.5 MG/3 ML AMPUL NEB SCH ×4 (02:46→20:36)
[2019-07-28] MEDS: METRONIDAZOLE 500 MG/NS RTU 500 MG/100 ML RTUPB IV SCH ×2 (03:15→09:11)
[2019-07-28] MEDS: LORAZEPAM 1 MG TABLET PO SCH ×2 (05:26→17:25)
[2019-07-28] MEDS: METHYLPREDNISOLONE INJ 125 MG/2 ML SDV IV SCH ×3 (05:26→22:03)
[2019-07-28] MEDS: LEVOTHYROXINE SODIUM 0.1 MG TABLET PO SCH (05:27)
[2019-07-28] MEDS: HEPARIN SOD (PORCINE) 5,000 UNIT/ML 1 ML VIAL SUBCUT SCH ×3 (05:27→22:03)
[2019-07-28 06:42] LABS: ALBUMIN 2.7 g/dL (3.5-5.0); ALKALINE PHOSPHATASE 80 U/L (38-126); ANION GAP 6 (5-19); ASPARTATE AMINO TRANSFERASE 12 U/L (14-36); BILIRUBIN,DIRECT 0.2 mg/dL (0.0-0.4); BILIRUBIN,TOTAL 0.2 mg/dL (0.2-1.3); BLOOD UREA NITROGEN 19 mg/dL (7-20); CALCIUM 7.7 mg/dL (8.4-10.2); CARBON DIOXIDE 31 mmol/L (22-30); CHLORIDE 106 mmol/L (98-107); GLUCOSE 202 mg/dL (75-110)
[2019-07-28 06:56] LABS: POTASSIUM 4.6 mmol/L (3.6-5.0)
[2019-07-28] MEDS: BUDESONIDE NEB 0.25 MG/2 ML AMPUL NEB SCH ×2 (08:29→20:36)
[2019-07-28] MEDS: SERTRALINE HCL 50 MG TABLET PO SCH (09:11)
[2019-07-28] MEDS: FAMOTIDINE 20 MG TABLET PO SCH (09:11)
[2019-07-28] MEDS: INSULIN REG, HUMAN 100 UNIT/ML 3 ML VIAL (PYX) SUBCUT SCH ×4 (09:11→22:03)
[2019-07-28] MEDS: FUROSEMIDE 20 MG TABLET PO SCH (09:11)
[2019-07-28] MEDS: FLUTICASONE/VILANTEROL 200-25 MCG/DOSE IH SCH (09:12)
--- NOTE | 2019-07-28 14:30 | PDOC PROGRESS REPORT ---
Subjective Progress Note for:: 07/28/19 Subjective:: 73-year-old female past medical history of COPD on 2 liters home O2, PNA, type II DM, HTN, STEPHANIE, afib, CHF, hypothyroidism who presented to the ED c/o as several day history of abdominal pain, N, V. She was found to be positive for c.diff and was started on oral vanc and flagyl. In the ED, she was hypotensive and got IVF. Pt had a central line placed by the ED physician and was started on levophed prior to her admission to the ICU. She was also started on bipap in the ED. Upon arrival to the ICU, she is awake and alert on bipap. She is on levophed and her SBP is in the 90s. 07/26/2019. No acute events overnight. This morning patient noted to be very lethargic but arousable, was started on BiPAP with some improvement of her somnolence. Diarrhea has resolved. 07/27/2019. No acute events overnight. Patient currently resting in bed having her breakfast, significant improvement of her mental status, alert oriented x3, noted to have significant wheezing, diarrhea has resolved. P.o. tolerant. Denies any chest pain, nausea, vomiting, diarrhea, constipation or any urinary symptoms. 07/28/2019. No acute events overnight. This morning patient looks somnolent however easily arousable and in no apparent distress, diarrhea has resolved, denies any chest pain, nausea, vomiting, abdominal pain or any urinary symptoms. Reason For Visit: SEPSIS, C DIFF ARF Physical Exam Vital Signs: Temp Pulse Resp BP Pulse Ox 97.5 F 108 H 14 130/82 H 99 07/28/19 11:19 07/28/19 11:19 07/28/19 11:19 07/28/19 11:19 07/28/19 11:19 Intake & Output 07/27/19 07/28/19 07/29/19 06:59 06:59 06:59 Intake Total 670 2100 580 Output Total 2150 2325 600 Balance -1480 -225 -20 Weight 89.8 kg 90 kg General appearance: PRESENT: no acute distress, well-developed, well-nourished Head exam: PRESENT: atraumatic, normocephalic Respiratory exam: PRESENT: decreased breath sounds, rales, rhonchi, symmetrical. ABSENT: wheezes Cardiovascular exam: PRESENT: RRR. ABSENT: diastolic murmur, rubs, systolic murmur Pulses: PRESENT: normal dorsalis pedis pul GI/Abdominal exam: PRESENT: normal bowel sounds, soft. ABSENT: distended, guarding, mass, organolmegaly, rebound, tenderness Extremities exam: PRESENT: full ROM. ABSENT: calf tenderness, clubbing, pedal edema Neurological exam: PRESENT: oriented to person, CN II-XII grossly intact, other - Somnolent, arousable.. ABSENT: motor sensory deficit Results Laboratory Results: 07/27/19 06:26 07/28/19 05:46 07/28/19 05:46 Sodium 143.4 Potassium 4.6 D Chloride 106 Carbon Dioxide 31 H Anion Gap 6 BUN 19 Creatinine 0.85 Est GFR ( Amer) > 60 Glucose 202 H Calcium 7.7 L Magnesium 1.8 Total Bilirubin 0.2 AST 12 L Alkaline Phosphatase 80 Total Protein 5.0 L Albumin 2.7 L 07/22/19 23:38 Blood Blood Culture - Final NO GROWTH IN 5 DAYS 07/22/19 23:00 Blood Blood Culture - Final NO GROWTH IN 5 DAYS 07/22/19 23:38 Troponin I 0.033 Impressions: Abdomen/Pelvis CT 07/23/19 00:39 IMPRESSION: Findings suggestive of mild acute sigmoid diverticulitis. Multiple other incidental findings, as above TECHNICAL DOCUMENTATION: Quality ID # 436: Final reports with documentation of one or more dose reduction techniques (e.g., Automated exposure control, adjustment of the mA and/or kV according to patient size, use of iterative reconstruction technique) copyright 2011 [employer]- All Rights Reserved Chest X-Ray 07/25/19 00:00 IMPRESSION: Slightly increasing right hilar consolidation. Assessment and Plan - Diagnosis (1) Acute and chronic respiratory failure Qualifiers: Respiratory failure complication: hypoxia and hypercapnia Qualified Code(s): J96.21 - Acute and chronic respiratory failure with hypoxia; J96.22 - Acute and chronic respiratory failure with hypercapnia Is this a current diagnosis for this admission?: Yes Plan: Acute on chronic respiratory failure. History of COPD. Oxygen dependent. Chest x-ray negative any acute changes. Continue scheduled BiPAP, duo nebs, IV steroids, LABA, LABA, ICS, pulmonary toileting, incentive spirometer, flutter valve. (2) COPD (chronic obstructive pulmonary disease) Qualifiers: COPD type: unspecified COPD Qualified Code(s): J44.9 - Chronic obstructive pulmonary disease, unspecified Is this a current diagnosis for this admission?: Yes Plan: As per #2. (3) Acute kidney injury superimposed on CKD Is this a current diagnosis for this admission?: Yes Plan: Due to septic shock. Resolved. Monitor volume status and electrolytes. Avoid nephrotoxic meds. (4) Acute metabolic encephalopathy Is this a current diagnosis for this admission?: Yes Plan: Resolved. Back to baseline. Most likely due to acute hypercarbic respiratory failure. At baseline patient is alert and x3. Lives at home. Plan as per #1. Monitor for aspiration, fall and seizure. Monitor electrolyte replace as needed. (5) Diabetes Qualifiers: Diabetes mellitus type: type 2 Diabetes mellitus prison insulin use: without prison use Diabetes mellitus complication status: with hyperglycemia Qualified Code(s): E11.65 - Type 2 diabetes mellitus with hyperglycemia Is this a current diagnosis for this admission?: Yes Plan: Controlled Continue diabetic diet, sliding scale insulin, Accu-Chek, hypoglycemia protocol. (6) Hypothyroidism Qualifiers: Hypothyroidism type: acquired Qualified Code(s): E03.9 - Hypothyroidism, unspecified Is this a current diagnosis for this admission?: Yes Plan: Restart home meds. (7) Hypokalemia Is this a current diagnosis for this admission?: Yes Plan: Likely due to GI losses. Replace as needed. Potassium level tomorrow. (8) C. difficile colitis Is this a current diagnosis for this admission?: Yes Plan: Resolved. Patient has not had any diarrhea. WBC WNL. Afebrile. Day 5 antibiotics. Day 5 p.o. vancomycin. Day 5 IV metronidazole. Continue p.o. and IV antibiotics. Monitor volume status. Monitor electrolytes and replace as needed. (9) Septic shock Is this a current diagnosis for this admission?: Yes Plan: Resolved. Due to acute C. difficile colitis. Resolved. (10) Physical deconditioning Is this a current diagnosis for this admission?: Yes Plan: Patient has severe physical deconditioning due to multiple hospitalization and multiple underlying comorbidities. Patient has had 11 inpatient hospitalization and 30 ED visits at [facility] in 2019. Patient lives at home with his son and his nurse aide. POClaire is her daughter who lives in [place]. Patient herself has voiced agreement to being transferred to to rehab however when discharge planning mentioned this to her POA she is adamantly refusing her mother to be sent to rehab. Please refer to discharge planning note.
[2019-07-28] MEDS: ACETAMINOPHEN 325 MG TABLET PO PRN (22:03)
[2019-07-28] MEDS: GUAIFENESIN 600 MG TABLET.SA PO SCH (22:03)
[2019-07-29] MEDS: IPRATROPIUM/ALBUTEROL 0.5-2.5 MG/3 ML AMPUL NEB SCH ×4 (02:18→20:47)
[2019-07-29] MEDS: METHYLPREDNISOLONE INJ 125 MG/2 ML SDV IV SCH ×3 (05:12→22:12)
[2019-07-29] MEDS: VANCOMYCIN HCL INJ 500 MG VIAL PO SCH ×4 (05:13→23:08)
[2019-07-29] MEDS: LORAZEPAM 1 MG TABLET PO SCH ×2 (05:13→18:03)
[2019-07-29] MEDS: HEPARIN SOD (PORCINE) 5,000 UNIT/ML 1 ML VIAL SUBCUT SCH ×3 (05:13→22:12)
[2019-07-29] MEDS: LEVOTHYROXINE SODIUM 0.1 MG TABLET PO SCH (05:13)
[2019-07-29 07:09] LABS: ARTERIAL BLOOD BASE EXCESS 5.1 mmol/L; ARTERIAL BLOOD FIO2 28%; ARTERIAL BLOOD H2CO3 1.74 mmol/L (1.05-1.35); ARTERIAL BLOOD HCO3 31.6 mmol/L (20-24); ARTERIAL BLOOD O2 SATURATION 97.5 % (94-98); ARTERIAL BLOOD PCO2 57.8 mmHg (35-45); ARTERIAL BLOOD PH 7.36 (7.35-7.45); ARTERIAL BLOOD PO2 105.9 mmHg (80-100); ARTERIAL BLOOD TOTAL CO2 33.3 mmol/L (21-25)
[2019-07-29] MEDS: INSULIN REG, HUMAN 100 UNIT/ML 3 ML VIAL (PYX) SUBCUT SCH ×4 (08:11→22:11)
[2019-07-29] MEDS: BUDESONIDE NEB 0.25 MG/2 ML AMPUL NEB SCH ×2 (08:50→20:47)
[2019-07-29] MEDS: GUAIFENESIN 600 MG TABLET.SA PO SCH ×2 (09:28→22:12)
[2019-07-29] MEDS: FUROSEMIDE 20 MG TABLET PO SCH (09:28)
[2019-07-29] MEDS: SERTRALINE HCL 50 MG TABLET PO SCH (09:28)
[2019-07-29] MEDS: FAMOTIDINE 20 MG TABLET PO SCH (09:28)
[2019-07-29] MEDS: FLUTICASONE/VILANTEROL 200-25 MCG/DOSE IH SCH (09:35)
--- NOTE | 2019-07-29 11:58 | PDOC PROGRESS REPORT ---
Subjective Progress Note for:: 07/29/19 Subjective:: 73-year-old female past medical history of COPD on 2 liters home O2, PNA, type II DM, HTN, STEPHANIE, afib, CHF, hypothyroidism who presented to the ED c/o as several day history of abdominal pain, N, V. She was found to be positive for c.diff and was started on oral vanc and flagyl. In the ED, she was hypotensive and got IVF. Pt had a central line placed by the ED physician and was started on levophed prior to her admission to the ICU. She was also started on bipap in the ED. Upon arrival to the ICU, she is awake and alert on bipap. She is on levophed and her SBP is in the 90s. 07/26/2019. No acute events overnight. This morning patient noted to be very lethargic but arousable, was started on BiPAP with some improvement of her somnolence. Diarrhea has resolved. 07/27/2019. No acute events overnight. Patient currently resting in bed having her breakfast, significant improvement of her mental status, alert oriented x3, noted to have significant wheezing, diarrhea has resolved. P.o. tolerant. Denies any chest pain, nausea, vomiting, diarrhea, constipation or any urinary symptoms. 07/28/2019. No acute events overnight. This morning patient looks somnolent however easily arousable and in no apparent distress, diarrhea has resolved, denies any chest pain, nausea, vomiting, abdominal pain or any urinary symptoms. 07/28/2019. No acute events overnight. This morning patient appears a bit lethargic but arousable, does not appear to be in any apparent distress. Responds to questions appropriately. Reason For Visit: SEPSIS, C DIFF ARF Physical Exam Vital Signs: Temp Pulse Resp BP Pulse Ox 98.0 F 108 H 18 150/130 H 100 07/29/19 07:51 07/29/19 08:52 07/29/19 08:52 07/29/19 07:51 07/29/19 08:52 Intake & Output 07/28/19 07/29/19 07/30/19 06:59 06:59 06:59 Intake Total 2100 1350 Output Total 2325 1900 Balance -225 -550 Weight 90 kg 89.3 kg Results Laboratory Results: 07/27/19 06:26 07/28/19 05:46 07/29/19 06:18 Carbonic Acid 1.74 H HCO3/H2CO3 Ratio 18:1 ABG pH 7.36 ABG pCO2 57.8 H ABG pO2 105.9 H ABG HCO3 31.6 H ABG O2 Saturation 97.5 ABG Base Excess 5.1 FiO2 28% 07/22/19 23:38 Troponin I 0.033 Impressions: Abdomen/Pelvis CT 07/23/19 00:39 IMPRESSION: Findings suggestive of mild acute sigmoid diverticulitis. Multiple other incidental findings, as above TECHNICAL DOCUMENTATION: Quality ID # 436: Final reports with documentation of one or more dose reduction techniques (e.g., Automated exposure control, adjustment of the mA and/or kV according to patient size, use of iterative reconstruction technique) copyright 2011 [employer]- All Rights Reserved Chest X-Ray 07/25/19 00:00 IMPRESSION: Slightly increasing right hilar consolidation. Assessment and Plan - Diagnosis (1) Acute and chronic respiratory failure Qualifiers: Respiratory failure complication: hypoxia and hypercapnia Qualified Code(s): J96.21 - Acute and chronic respiratory failure with hypoxia; J96.22 - Acute and chronic respiratory failure with hypercapnia Is this a current diagnosis for this admission?: Yes Plan: Acute on chronic respiratory failure. History of COPD. Oxygen dependent. Chest x-ray negative any acute changes. Continue scheduled BiPAP, duo nebs, IV steroids, LABA, LABA, ICS, pulmonary toileting, incentive spirometer, flutter valve. (2) COPD (chronic obstructive pulmonary disease) Qualifiers: COPD type: unspecified COPD Qualified Code(s): J44.9 - Chronic obstructive pulmonary disease, unspecified Is this a current diagnosis for this admission?: Yes Plan: As per #2. (3) Acute kidney injury superimposed on CKD Is this a current diagnosis for this admission?: Yes Plan: Due to septic shock. Resolved. Monitor volume status and electrolytes. Avoid nephrotoxic meds. (4) Acute metabolic encephalopathy Is this a current diagnosis for this admission?: Yes Plan: Resolved. Back to baseline. Most likely due to acute hypercarbic respiratory failure. At baseline patient is alert and x3. Lives at home. Plan as per #1. Monitor for aspiration, fall and seizure. Monitor electrolyte replace as needed. (5) Diabetes Qualifiers: Diabetes mellitus type: type 2 Diabetes mellitus mcc insulin use: without mcc use Diabetes mellitus complication status: with hyperglycemia Qualified Code(s): E11.65 - Type 2 diabetes mellitus with hyperglycemia Is this a current diagnosis for this admission?: Yes Plan: Uncontrolled due to IV steroid for acute COPD exacerbation. Continue diabetic diet, sliding scale insulin, Accu-Chek, hypoglycemia protocol. (6) Hypothyroidism Qualifiers: Hypothyroidism type: acquired Qualified Code(s): E03.9 - Hypothyroidism, unspecified Is this a current diagnosis for this admission?: Yes Plan: Restart home meds. (7) Hypokalemia Is this a current diagnosis for this admission?: Yes Plan: Likely due to GI losses. Replace as needed. Potassium level tomorrow. (8) C. difficile colitis Is this a current diagnosis for this admission?: Yes Plan: Resolved. Patient has not had any diarrhea. WBC WNL. Afebrile. Day 6 antibiotics. Day 6 p.o. vancomycin. Received 6 days of IV metronidazole. DC IV metronidazole. Continue p.o. antibiotics. Monitor volume status. Monitor electrolytes and replace as needed. (9) Septic shock Is this a current diagnosis for this admission?: Yes Plan: Resolved. Due to acute C. difficile colitis. Resolved. (10) Physical deconditioning Is this a current diagnosis for this admission?: Yes Plan: Patient has severe physical deconditioning due to multiple hospitalization and multiple underlying comorbidities. Patient has had 11 inpatient hospitalization and 30 ED visits at [facility]. Patient lives at home with his son and his nurse aide. POClaire is her daughter who lives in [place]. Patient herself has voiced agreement to being transferred to to rehab however when discharge planning mentioned this to her POA she is adamantly refusing her mother to be sent to rehab. Please refer to discharge planning note.
[2019-07-29] MEDS: INSULIN GLARGINE,HUM.REC.ANLOG 1,000 UNIT/10 ML VIAL SUBCUT SCH (13:40)
[2019-07-29] MEDS: FUROSEMIDE INJ/PF 20 MG/2 ML SDV IV SCH (22:11)
[2019-07-29] MEDS: ACETAMINOPHEN 325 MG TABLET PO PRN (22:12)
[2019-07-30] MEDS: IPRATROPIUM/ALBUTEROL 0.5-2.5 MG/3 ML AMPUL NEB SCH ×4 (02:12→20:35)
[2019-07-30] MEDS: HEPARIN SOD (PORCINE) 5,000 UNIT/ML 1 ML VIAL SUBCUT SCH ×3 (05:57→21:44)
[2019-07-30] MEDS: METHYLPREDNISOLONE INJ 125 MG/2 ML SDV IV SCH ×3 (05:58→21:59)
[2019-07-30] MEDS: VANCOMYCIN HCL INJ 500 MG VIAL PO SCH ×3 (05:58→21:57)
[2019-07-30] MEDS: LEVOTHYROXINE SODIUM 0.1 MG TABLET PO SCH (05:58)
[2019-07-30] MEDS: LORAZEPAM 1 MG TABLET PO SCH ×2 (06:39→17:05)
[2019-07-30 07:00] LABS: ARTERIAL BLOOD BASE EXCESS 6.1 mmol/L; ARTERIAL BLOOD FIO2 36%; ARTERIAL BLOOD H2CO3 1.73 mmol/L (1.05-1.35); ARTERIAL BLOOD HCO3 32.6 mmol/L (20-24); ARTERIAL BLOOD O2 SATURATION 98.9 % (94-98); ARTERIAL BLOOD PCO2 57.6 mmHg (35-45); ARTERIAL BLOOD PH 7.37 (7.35-7.45); ARTERIAL BLOOD PO2 152.5 mmHg (80-100); ARTERIAL BLOOD TOTAL CO2 34.4 mmol/L (21-25)
[2019-07-30] MEDS: INSULIN REG, HUMAN 100 UNIT/ML 3 ML VIAL (PYX) SUBCUT SCH ×4 (08:22→21:58)
[2019-07-30] MEDS: BUDESONIDE NEB 0.25 MG/2 ML AMPUL NEB SCH ×2 (08:51→20:35)
--- NOTE | 2019-07-30 09:26 | PDOC PROGRESS REPORT ---
Subjective Progress Note for:: 07/30/19 Subjective:: 73-year-old female past medical history of COPD on 2 liters home O2, PNA, type II DM, HTN, STEPHANIE, afib, CHF, hypothyroidism who presented to the ED c/o as several day history of abdominal pain, N, V. She was found to be positive for c.diff and was started on oral vanc and flagyl. In the ED, she was hypotensive and got IVF. Pt had a central line placed by the ED physician and was started on levophed prior to her admission to the ICU. She was also started on bipap in the ED. Upon arrival to the ICU, she is awake and alert on bipap. She is on levophed and her SBP is in the 90s. 07/26/2019. No acute events overnight. This morning patient noted to be very lethargic but arousable, was started on BiPAP with some improvement of her somnolence. Diarrhea has resolved. 07/27/2019. No acute events overnight. Patient currently resting in bed having her breakfast, significant improvement of her mental status, alert oriented x3, noted to have significant wheezing, diarrhea has resolved. P.o. tolerant. Denies any chest pain, nausea, vomiting, diarrhea, constipation or any urinary symptoms. 07/28/2019. No acute events overnight. This morning patient looks somnolent however easily arousable and in no apparent distress, diarrhea has resolved, denies any chest pain, nausea, vomiting, abdominal pain or any urinary symptoms. 07/29/2019. No acute events overnight. This morning patient appears a bit lethargic but arousable, does not appear to be in any apparent distress. Responds to questions appropriately. 07/30/2019. No acute events overnight. This morning patient is alert and awake, in no apparent distress, denies any fever, chills, nausea, vomiting, diarrhea, constipation or any urinary symptoms. Enjoying her breakfast. Reason For Visit: SEPSIS, C DIFF ARF Physical Exam Vital Signs: Temp Pulse Resp BP Pulse Ox 98.2 F 91 16 148/86 H 97 07/30/19 07:34 07/30/19 08:53 07/30/19 08:53 07/30/19 07:34 07/30/19 08:53 Intake & Output 07/29/19 07/30/19 07/31/19 06:59 06:59 06:59 Intake Total 1350 533 Output Total 6589 3499 Balance -175 -2996 Weight 89.3 kg 84.7 kg General appearance: PRESENT: no acute distress, obese, well-developed, well- nourished Head exam: PRESENT: atraumatic, normocephalic Respiratory exam: PRESENT: decreased breath sounds. ABSENT: rales, rhonchi, wheezes Cardiovascular exam: PRESENT: RRR. ABSENT: diastolic murmur, rubs, systolic murmur GI/Abdominal exam: PRESENT: normal bowel sounds, soft. ABSENT: distended, guarding, mass, organolmegaly, rebound, tenderness Neurological exam: PRESENT: alert, awake, oriented to person, oriented to place, CN II-XII grossly intact. ABSENT: motor sensory deficit Results Laboratory Results: 07/27/19 06:26 07/28/19 05:46 07/30/19 06:45 Carbonic Acid 1.73 H HCO3/H2CO3 Ratio 18:1 ABG pH 7.37 ABG pCO2 57.6 H ABG pO2 152.5 H ABG HCO3 32.6 H ABG O2 Saturation 98.9 H ABG Base Excess 6.1 FiO2 36% 07/22/19 23:38 Troponin I 0.033 Impressions: Abdomen/Pelvis CT 07/23/19 00:39 IMPRESSION: Findings suggestive of mild acute sigmoid diverticulitis. Multiple other incidental findings, as above TECHNICAL DOCUMENTATION: Quality ID # [id number]: Final reports with documentation of one or more dose reduction techniques (e.g., Automated exposure control, adjustment of the mA and/or kV according to patient size, use of iterative reconstruction technique) copyright 2011 [employer]- All Rights Reserved Chest X-Ray 07/25/19 00:00 IMPRESSION: Slightly increasing right hilar consolidation. Assessment and Plan - Diagnosis (1) Acute and chronic respiratory failure Qualifiers: Respiratory failure complication: hypoxia and hypercapnia Qualified Code(s): J96.21 - Acute and chronic respiratory failure with hypoxia; J96.22 - Acute and chronic respiratory failure with hypercapnia Is this a current diagnosis for this admission?: Yes Plan: Improving. Hypoxemia has resolved. Mildly elevated CO2. Acute on chronic respiratory failure. History of COPD. Oxygen dependent. Chest x-ray negative any acute changes. Continue scheduled BiPAP, duo nebs, IV steroids, LABA, LABA, ICS, pulmonary toileting, incentive spirometer, flutter valve. (2) COPD (chronic obstructive pulmonary disease) Qualifiers: COPD type: unspecified COPD Qualified Code(s): J44.9 - Chronic obstructive pulmonary disease, unspecified Is this a current diagnosis for this admission?: Yes Plan: As per #1. (3) Acute kidney injury superimposed on CKD Is this a current diagnosis for this admission?: Yes Plan: Due to septic shock. Resolved. Monitor volume status and electrolytes. Avoid nephrotoxic meds. (4) Acute metabolic encephalopathy Is this a current diagnosis for this admission?: Yes Plan: Resolved. Back to baseline. Most likely due to acute hypercarbic respiratory failure. At baseline patient is alert and x3. Lives at home. Plan as per #1. Monitor for aspiration, fall and seizure. Monitor electrolyte replace as needed. (5) Diabetes Qualifiers: Diabetes mellitus type: type 2 Diabetes mellitus terminal clerk insulin use: without terminal clerk use Diabetes mellitus complication status: with hyperglycemia Qualified Code(s): E11.65 - Type 2 diabetes mellitus with hyperglycemia Is this a current diagnosis for this admission?: Yes Plan: Uncontrolled due to IV steroid for acute COPD exacerbation. Continue diabetic diet, sliding scale insulin, Accu-Chek, hypoglycemia protocol. (6) Hypothyroidism Qualifiers: Hypothyroidism type: acquired Qualified Code(s): E03.9 - Hypothyroidism, unspecified Is this a current diagnosis for this admission?: Yes Plan: Restart home meds. (7) Hypokalemia Is this a current diagnosis for this admission?: Yes Plan: Likely due to GI losses. Replace as needed. Potassium level tomorrow. (8) C. difficile colitis Is this a current diagnosis for this admission?: Yes Plan: Resolved. Patient has not had any diarrhea. WBC WNL. Afebrile. Day 6 antibiotics. Day 6 p.o. vancomycin. Received 6 days of IV metronidazole. DC IV metronidazole. Continue p.o. antibiotics. Monitor volume status. Monitor electrolytes and replace as needed. (9) Septic shock Is this a current diagnosis for this admission?: Yes Plan: Resolved. Due to acute C. difficile colitis. Resolved. (10) Physical deconditioning Is this a current diagnosis for this admission?: Yes Plan: Patient has severe physical deconditioning due to multiple hospitalization and multiple underlying comorbidities. Patient has had 11 inpatient hospitalization and 30 ED visits at [facility] in 2019. Patient lives at home with his son and his nurse aide. POClaire is her daughter who lives in [place]. Patient herself has voiced agreement to being transferred to to rehab however when discharge planning mentioned this to her POA she is adamantly refusing her mother to be sent to rehab. Please refer to discharge planning note.
[2019-07-30] MEDS: INSULIN GLARGINE,HUM.REC.ANLOG 1,000 UNIT/10 ML VIAL SUBCUT SCH (09:58)
[2019-07-30] MEDS: FAMOTIDINE 20 MG TABLET PO SCH (09:58)
[2019-07-30] MEDS: SERTRALINE HCL 50 MG TABLET PO SCH (09:58)
[2019-07-30] MEDS: GUAIFENESIN 600 MG TABLET.SA PO SCH ×2 (09:58→21:59)
[2019-07-30] MEDS: FUROSEMIDE INJ/PF 20 MG/2 ML SDV IV SCH ×2 (09:59→21:58)
[2019-07-30] MEDS: FLUTICASONE/VILANTEROL 200-25 MCG/DOSE IH SCH (09:59)
[2019-07-30] MEDS ORDERED: METOPROLOL TARTRATE PF/INJ 5 MG/5 ML SDV IV ONE (17:54)
[2019-07-31] MEDS: IPRATROPIUM/ALBUTEROL 0.5-2.5 MG/3 ML AMPUL NEB SCH ×4 (02:33→20:49)
[2019-07-31] MEDS: VANCOMYCIN HCL INJ 500 MG VIAL PO SCH ×4 (02:49→21:17)
[2019-07-31 05:27] LABS: ARTERIAL BLOOD BASE EXCESS 13.3 mmol/L; ARTERIAL BLOOD FIO2 2L; ARTERIAL BLOOD H2CO3 1.92 mmol/L (1.05-1.35); ARTERIAL BLOOD HCO3 40.3 mmol/L (20-24); ARTERIAL BLOOD O2 SATURATION 98.3 % (94-98); ARTERIAL BLOOD PCO2 63.7 mmHg (35-45); ARTERIAL BLOOD PH 7.42 (7.35-7.45); ARTERIAL BLOOD PO2 121.5 mmHg (80-100); ARTERIAL BLOOD TOTAL CO2 42.3 mmol/L (21-25)
[2019-07-31] MEDS: HEPARIN SOD (PORCINE) 5,000 UNIT/ML 1 ML VIAL SUBCUT SCH ×3 (05:27→21:19)
[2019-07-31] MEDS: LORAZEPAM 1 MG TABLET PO SCH ×2 (05:27→17:01)
[2019-07-31] MEDS: LEVOTHYROXINE SODIUM 0.1 MG TABLET PO SCH (05:32)
[2019-07-31] MEDS: METHYLPREDNISOLONE INJ 125 MG/2 ML SDV IV SCH ×3 (05:32→21:17)
[2019-07-31] MEDS: BUDESONIDE NEB 0.25 MG/2 ML AMPUL NEB SCH ×2 (08:02→20:49)
[2019-07-31] MEDS: ONDANSETRON HCL INJ/PF 4 MG/2 ML SDV IV PRN (09:30)
[2019-07-31] MEDS: GUAIFENESIN 600 MG TABLET.SA PO SCH ×2 (10:37→21:17)
[2019-07-31] MEDS: SERTRALINE HCL 50 MG TABLET PO SCH (10:37)
[2019-07-31] MEDS: FAMOTIDINE 20 MG TABLET PO SCH (10:37)
[2019-07-31] MEDS: FUROSEMIDE INJ/PF 20 MG/2 ML SDV IV SCH ×2 (10:38→21:17)
[2019-07-31] MEDS: INSULIN REG, HUMAN 100 UNIT/ML 3 ML VIAL (PYX) SUBCUT SCH ×4 (10:38→21:18)
[2019-07-31] MEDS: INSULIN GLARGINE,HUM.REC.ANLOG 1,000 UNIT/10 ML VIAL SUBCUT SCH (10:39)
[2019-07-31] MEDS: FLUTICASONE/VILANTEROL 200-25 MCG/DOSE IH SCH (10:41)
--- NOTE | 2019-07-31 10:54 | PDOC PROGRESS REPORT ---
Subjective Progress Note for:: 07/31/19 Subjective:: 73-year-old female past medical history of COPD on 2 liters home O2, PNA, type II DM, HTN, STEPHANIE, afib, CHF, hypothyroidism who presented to the ED c/o as several day history of abdominal pain, N, V. She was found to be positive for c.diff and was started on oral vanc and flagyl. In the ED, she was hypotensive and got IVF. Pt had a central line placed by the ED physician and was started on levophed prior to her admission to the ICU. She was also started on bipap in the ED. Upon arrival to the ICU, she is awake and alert on bipap. She is on levophed and her SBP is in the 90s. 07/26/2019. No acute events overnight. This morning patient noted to be very lethargic but arousable, was started on BiPAP with some improvement of her somnolence. Diarrhea has resolved. 07/27/2019. No acute events overnight. Patient currently resting in bed having her breakfast, significant improvement of her mental status, alert oriented x3, noted to have significant wheezing, diarrhea has resolved. P.o. tolerant. Denies any chest pain, nausea, vomiting, diarrhea, constipation or any urinary symptoms. 07/28/2019. No acute events overnight. This morning patient looks somnolent however easily arousable and in no apparent distress, diarrhea has resolved, denies any chest pain, nausea, vomiting, abdominal pain or any urinary symptoms. 07/29/2019. No acute events overnight. This morning patient appears a bit lethargic but arousable, does not appear to be in any apparent distress. Responds to questions appropriately. 07/30/2019. No acute events overnight. This morning patient is alert and awake, in no apparent distress, denies any fever, chills, nausea, vomiting, diarrhea, constipation or any urinary symptoms. Enjoying her breakfast. 07/31/2019. No acute events overnight. Patient not very compliant with her BiPAP, resting in bed, comfortably, enjoying her breakfast, alert oriented x3. Denies any fever, chills, nausea, vomiting, diarrhea, constipation or any urinary symptoms. ABG still shows CO2 retention which is at her baseline still has significant rhonchi on physical examination. Reason For Visit: SEPSIS, C DIFF ARF Physical Exam Vital Signs: Temp Pulse Resp BP Pulse Ox 98.2 F 106 H 18 149/74 H 100 07/30/19 23:16 07/31/19 08:02 07/31/19 08:02 07/30/19 23:16 07/31/19 08:02 Intake & Output 07/30/19 07/31/19 08/01/19 06:59 06:59 06:59 Intake Total 533 1280 Output Total 2775 1900 Balance -2242 -620 Weight 84.7 kg 88.4 kg General appearance: PRESENT: no acute distress, well-developed, well-nourished Head exam: PRESENT: atraumatic, normocephalic Respiratory exam: PRESENT: clear to auscultation jeff, prolonged expiratory phas, rales, rhonchi. ABSENT: wheezes GI/Abdominal exam: PRESENT: normal bowel sounds, soft. ABSENT: distended, guarding, mass, organolmegaly, rebound, tenderness Neurological exam: PRESENT: alert, awake, oriented to person, oriented to place, oriented to time, oriented to situation, CN II-XII grossly intact. ABSENT: motor sensory deficit Results Laboratory Results: 07/27/19 06:26 07/28/19 05:46 07/31/19 05:06 Carbonic Acid 1.92 H HCO3/H2CO3 Ratio 20:1 ABG pH 7.42 ABG pCO2 63.7 H ABG pO2 121.5 H ABG HCO3 40.3 H ABG O2 Saturation 98.3 H ABG Base Excess 13.3 FiO2 2L 07/22/19 23:38 Troponin I 0.033 Impressions: Abdomen/Pelvis CT 07/23/19 00:39 IMPRESSION: Findings suggestive of mild acute sigmoid diverticulitis. Multiple other incidental findings, as above TECHNICAL DOCUMENTATION: Quality ID # [id number]: Final reports with documentation of one or more dose reduction techniques (e.g., Automated exposure control, adjustment of the mA and/or kV according to patient size, use of iterative reconstruction technique) copyright 2011 [employer]- All Rights Reserved Chest X-Ray 07/25/19 00:00 IMPRESSION: Slightly increasing right hilar consolidation. Assessment and Plan - Diagnosis (1) Acute and chronic respiratory failure Qualifiers: Respiratory failure complication: hypoxia and hypercapnia Qualified Code(s): J96.21 - Acute and chronic respiratory failure with hypoxia; J96.22 - Acute and chronic respiratory failure with hypercapnia Is this a current diagnosis for this admission?: Yes Plan: Improving. Hypoxemia has resolved. Mildly elevated CO2. Acute on chronic respiratory failure. History of COPD. Oxygen dependent. Chest x-ray negative any acute changes. Continue scheduled BiPAP, duo nebs, IV steroids, LABA, LABA, ICS, pulmonary toileting, incentive spirometer, flutter valve. (2) COPD (chronic obstructive pulmonary disease) Qualifiers: COPD type: unspecified COPD Qualified Code(s): J44.9 - Chronic obstructive pulmonary disease, unspecified Is this a current diagnosis for this admission?: Yes Plan: As per #1. (3) Acute kidney injury superimposed on CKD Is this a current diagnosis for this admission?: Yes Plan: Due to septic shock. Resolved. Monitor volume status and electrolytes. Avoid nephrotoxic meds. (4) Acute metabolic encephalopathy Is this a current diagnosis for this admission?: Yes Plan: Resolved. Back to baseline. Most likely due to acute hypercarbic respiratory failure. At baseline patient is alert and x3. Lives at home. Plan as per #1. Monitor for aspiration, fall and seizure. Monitor electrolyte replace as needed. (5) Diabetes Qualifiers: Diabetes mellitus type: type 2 Diabetes mellitus intermediate insulin use: without joint terminal attack controller use Diabetes mellitus complication status: with hyperglycemia Qualified Code(s): E11.65 - Type 2 diabetes mellitus with hyperglycemia Is this a current diagnosis for this admission?: Yes Plan: Uncontrolled due to IV steroid for acute COPD exacerbation. Continue diabetic diet, sliding scale insulin, Accu-Chek, hypoglycemia protocol. (6) Hypothyroidism Qualifiers: Hypothyroidism type: acquired Qualified Code(s): E03.9 - Hypothyroidism, unspecified Is this a current diagnosis for this admission?: Yes Plan: Restart home meds. (7) Hypokalemia Is this a current diagnosis for this admission?: Yes Plan: Likely due to GI losses. Replace as needed. Potassium level tomorrow. (8) C. difficile colitis Is this a current diagnosis for this admission?: Yes Plan: Resolved. Patient has not had any diarrhea. WBC WNL. Afebrile. Day 6 antibiotics. Day 6 p.o. vancomycin. Received 6 days of IV metronidazole. DC IV metronidazole. Continue p.o. antibiotics. Monitor volume status. Monitor electrolytes and replace as needed. (9) Septic shock Is this a current diagnosis for this admission?: Yes Plan: Resolved. Due to acute C. difficile colitis. Resolved. (10) Physical deconditioning Is this a current diagnosis for this admission?: Yes Plan: Patient has severe physical deconditioning due to multiple hospitalization and multiple underlying comorbidities. Patient has had 11 inpatient hospitalization and 30 ED visits at [facility] in 2019. Patient lives at home with his son and his nurse aide. MAICO is her daughter who lives in [place]. Patient herself has voiced agreement to being transferred to to rehab however when discharge planning mentioned this to her POA she is adamantly refusing her mother to be sent to rehab. Please refer to discharge planning note.
[2019-07-31] MEDS ORDERED: ACETYLCYSTEINE 10% NEB 400 MG/4 ML VIAL NEB ONE (12:15)
[2019-07-31] MEDS: IPRATROPIUM/ALBUTEROL 0.5-2.5 MG/3 ML AMPUL NEB PRN (12:21)
[2019-08-01] MEDS: IPRATROPIUM/ALBUTEROL 0.5-2.5 MG/3 ML AMPUL NEB SCH ×4 (02:05→20:07)
[2019-08-01] MEDS: VANCOMYCIN HCL INJ 500 MG VIAL PO SCH ×4 (03:29→22:15)
[2019-08-01] MEDS: HEPARIN SOD (PORCINE) 5,000 UNIT/ML 1 ML VIAL SUBCUT SCH ×3 (05:05→22:17)
[2019-08-01] MEDS: LEVOTHYROXINE SODIUM 0.1 MG TABLET PO SCH (05:05)
[2019-08-01] MEDS: METHYLPREDNISOLONE INJ 125 MG/2 ML SDV IV SCH ×3 (05:05→22:16)
[2019-08-01] MEDS: LORAZEPAM 1 MG TABLET PO SCH (05:05)
[2019-08-01] MEDS: BUDESONIDE NEB 0.25 MG/2 ML AMPUL NEB SCH ×2 (08:56→20:07)
[2019-08-01] MEDS: SERTRALINE HCL 50 MG TABLET PO SCH (10:10)
[2019-08-01] MEDS: FAMOTIDINE 20 MG TABLET PO SCH (10:10)
[2019-08-01] MEDS: GUAIFENESIN 600 MG TABLET.SA PO SCH ×2 (10:10→22:16)
[2019-08-01] MEDS: FUROSEMIDE INJ/PF 20 MG/2 ML SDV IV SCH ×2 (10:10→22:15)
[2019-08-01] MEDS: FLUTICASONE/VILANTEROL 200-25 MCG/DOSE IH SCH (10:11)
[2019-08-01] MEDS: INSULIN REG, HUMAN 100 UNIT/ML 3 ML VIAL (PYX) SUBCUT SCH ×4 (10:21→22:16)
[2019-08-01] MEDS: INSULIN GLARGINE,HUM.REC.ANLOG 1,000 UNIT/10 ML VIAL SUBCUT SCH (10:21)
--- NOTE | 2019-08-01 15:50 | PDOC PROGRESS REPORT ---
Subjective Progress Note for:: 08/01/19 Subjective:: 73-year-old female past medical history of COPD on 2 liters home O2, PNA, type II DM, HTN, STEPHANIE, afib, CHF, hypothyroidism who presented to the ED c/o as several day history of abdominal pain, N, V. She was found to be positive for c.diff and was started on oral vanc and flagyl. In the ED, she was hypotensive and got IVF. Pt had a central line placed by the ED physician and was started on levophed prior to her admission to the ICU. She was also started on bipap in the ED. Upon arrival to the ICU, she is awake and alert on bipap. She is on levophed and her SBP is in the 90s. 07/26/2019. No acute events overnight. This morning patient noted to be very lethargic but arousable, was started on BiPAP with some improvement of her somnolence. Diarrhea has resolved. 07/27/2019. No acute events overnight. Patient currently resting in bed having her breakfast, significant improvement of her mental status, alert oriented x3, noted to have significant wheezing, diarrhea has resolved. P.o. tolerant. Denies any chest pain, nausea, vomiting, diarrhea, constipation or any urinary symptoms. 07/28/2019. No acute events overnight. This morning patient looks somnolent however easily arousable and in no apparent distress, diarrhea has resolved, denies any chest pain, nausea, vomiting, abdominal pain or any urinary symptoms. 07/29/2019. No acute events overnight. This morning patient appears a bit lethargic but arousable, does not appear to be in any apparent distress. Responds to questions appropriately. 07/30/2019. No acute events overnight. This morning patient is alert and awake, in no apparent distress, denies any fever, chills, nausea, vomiting, diarrhea, constipation or any urinary symptoms. Enjoying her breakfast. 07/31/2019. No acute events overnight. Patient not very compliant with her BiPAP, resting in bed, comfortably, enjoying her breakfast, alert oriented x3. Denies any fever, chills, nausea, vomiting, diarrhea, constipation or any urinary symptoms. ABG still shows CO2 retention which is at her baseline still has significant rhonchi on physical examination. 08/01/2018. No acute events overnight. Patient has been using her BiPAP overnight however refuses to have her chest physical therapy. Patient is awake, alert, oriented x3, denies any fever, chills, nausea, vomiting, diarrhea, constipation or any urinary symptoms. Patient could potentially be discharged home but unfortunately still has significant wheezing on physical examination. Possible discharge home tomorrow. Reason For Visit: SEPSIS, C DIFF ARF Physical Exam Vital Signs: Temp Pulse Resp BP Pulse Ox 98.2 F 102 H 16 123/63 95 08/01/19 11:27 08/01/19 14:13 08/01/19 14:13 08/01/19 11:27 08/01/19 14:13 Intake & Output 07/31/19 08/01/19 08/02/19 06:59 06:59 06:59 Intake Total 1280 927 720 Output Total 1900 1350 360 Balance -620 -423 360 Weight 88.4 kg 96.6 kg General appearance: PRESENT: obese Head exam: PRESENT: atraumatic, normocephalic Respiratory exam: PRESENT: prolonged expiratory phas, rhonchi, wheezes. ABSENT: rales Cardiovascular exam: PRESENT: RRR. ABSENT: diastolic murmur, rubs, systolic murmur Neurological exam: PRESENT: alert, awake, oriented to person, oriented to place, oriented to time, oriented to situation, CN II-XII grossly intact. ABSENT: motor sensory deficit Results Laboratory Results: 07/27/19 06:26 07/28/19 05:46 07/22/19 23:38 Troponin I 0.033 Impressions: Abdomen/Pelvis CT 07/23/19 00:39 IMPRESSION: Findings suggestive of mild acute sigmoid diverticulitis. Multiple other incidental findings, as above TECHNICAL DOCUMENTATION: Quality ID # [id number]: Final reports with documentation of one or more dose reduction techniques (e.g., Automated exposure control, adjustment of the mA and/or kV according to patient size, use of iterative reconstruction technique) copyright 2011 [id number]- All Rights Reserved Chest X-Ray 07/25/19 00:00 IMPRESSION: Slightly increasing right hilar consolidation. Assessment and Plan - Diagnosis (1) Acute and chronic respiratory failure Qualifiers: Respiratory failure complication: hypoxia and hypercapnia Qualified Code(s): J96.21 - Acute and chronic respiratory failure with hypoxia; J96.22 - Acute and chronic respiratory failure with hypercapnia Is this a current diagnosis for this admission?: Yes Plan: Proving. SPO2 WNL on 2 L. Still having significant wheezing on physical examination. Acute on chronic respiratory failure. History of COPD. Oxygen dependent. Chest x-ray negative any acute changes. Continue scheduled BiPAP, duo nebs, IV steroids, LABA, LABA, ICS, pulmonary toileting, incentive spirometer, flutter valve. (2) COPD (chronic obstructive pulmonary disease) Qualifiers: COPD type: unspecified COPD Qualified Code(s): J44.9 - Chronic obstructive pulmonary disease, unspecified Is this a current diagnosis for this admission?: Yes Plan: As per #1. (3) Acute kidney injury superimposed on CKD Is this a current diagnosis for this admission?: Yes Plan: Due to septic shock. Resolved. Monitor volume status and electrolytes. Avoid nephrotoxic meds. (4) Acute metabolic encephalopathy Is this a current diagnosis for this admission?: Yes Plan: Resolved. Back to baseline. Most likely due to acute hypercarbic respiratory failure. At baseline patient is alert and x3. Lives at home. Plan as per #1. Monitor for aspiration, fall and seizure. Monitor electrolyte replace as needed. (5) Diabetes Qualifiers: Diabetes mellitus type: type 2 Diabetes mellitus continuous churn buttermaker insulin use: without detention use Diabetes mellitus complication status: with hyperglycemia Qualified Code(s): E11.65 - Type 2 diabetes mellitus with hyperglycemia Is this a current diagnosis for this admission?: Yes Plan: Uncontrolled due to IV steroid for acute COPD exacerbation. Continue diabetic diet, sliding scale insulin, Accu-Chek, hypoglycemia protocol. (6) Hypothyroidism Qualifiers: Hypothyroidism type: acquired Qualified Code(s): E03.9 - Hypothyroidism, unspecified Is this a current diagnosis for this admission?: Yes Plan: Restart home meds. (7) Hypokalemia Is this a current diagnosis for this admission?: Yes Plan: Likely due to GI losses. Replace as needed. Potassium level tomorrow. (8) C. difficile colitis Is this a current diagnosis for this admission?: Yes Plan: Resolved. Patient has not had any diarrhea. WBC WNL. Afebrile. Day 6 antibiotics. Day 6 p.o. vancomycin. Received 6 days of IV metronidazole. DC IV metronidazole. Continue p.o. antibiotics. Monitor volume status. Monitor electrolytes and replace as needed. (9) Septic shock Is this a current diagnosis for this admission?: Yes Plan: Resolved. Due to acute C. difficile colitis. Resolved. (10) Physical deconditioning Is this a current diagnosis for this admission?: Yes Plan: Patient has severe physical deconditioning due to multiple hospitalization and multiple underlying comorbidities. Patient has had 11 inpatient hospitalization and 30 ED visits at [facility] in 2019. Patient lives at home with his son and his nurse aide. POClaire is her daughter who lives in [place]. Patient herself has voiced agreement to being transferred to to rehab however when discharge planning mentioned this to her POA she is adamantly refusing her mother to be sent to rehab. Please refer to discharge planning note.
[2019-08-02] MEDS: IPRATROPIUM/ALBUTEROL 0.5-2.5 MG/3 ML AMPUL NEB SCH ×3 (02:17→13:32)
[2019-08-02] MEDS: VANCOMYCIN HCL INJ 500 MG VIAL PO SCH ×3 (02:54→15:41)
[2019-08-02] MEDS: HEPARIN SOD (PORCINE) 5,000 UNIT/ML 1 ML VIAL SUBCUT SCH ×2 (06:29→13:43)
[2019-08-02] MEDS: METHYLPREDNISOLONE INJ 125 MG/2 ML SDV IV SCH ×2 (06:45→13:45)
[2019-08-02] MEDS: LEVOTHYROXINE SODIUM 0.1 MG TABLET PO SCH (06:45)
[2019-08-02] MEDS: BUDESONIDE NEB 0.25 MG/2 ML AMPUL NEB SCH (07:45)
[2019-08-02] MEDS: INSULIN REG, HUMAN 100 UNIT/ML 3 ML VIAL (PYX) SUBCUT SCH ×3 (08:15→15:41)
[2019-08-02] MEDS: FUROSEMIDE INJ/PF 20 MG/2 ML SDV IV SCH (09:17)
[2019-08-02] MEDS: INSULIN GLARGINE,HUM.REC.ANLOG 1,000 UNIT/10 ML VIAL SUBCUT SCH (09:17)
[2019-08-02] MEDS: SERTRALINE HCL 50 MG TABLET PO SCH (09:17)
[2019-08-02] MEDS: GUAIFENESIN 600 MG TABLET.SA PO SCH (09:17)
[2019-08-02] MEDS: FAMOTIDINE 20 MG TABLET PO SCH (09:17)
[2019-08-02] MEDS: FLUTICASONE/VILANTEROL 200-25 MCG/DOSE IH SCH (10:25)
--- NOTE | 2019-08-02 13:08 | PDOC DISCHARGE SUMMARY ---
Impression - Admit/DC Date/PCP Admission Date/Primary Care Provider: 07/23/19 03:23 ARASELI AGUILAR MD Discharge Date: 08/02/19 - Discharge Diagnosis (2) Acute and chronic respiratory failure Is this a current diagnosis for this admission?: Yes (3) Acute kidney injury superimposed on CKD Is this a current diagnosis for this admission?: Yes (4) C. difficile colitis Is this a current diagnosis for this admission?: Yes (5) Acute metabolic encephalopathy Is this a current diagnosis for this admission?: Yes (6) COPD (chronic obstructive pulmonary disease) Is this a current diagnosis for this admission?: Yes (7) Diabetes Is this a current diagnosis for this admission?: Yes (8) Hypokalemia Is this a current diagnosis for this admission?: Yes (10) Septic shock Is this a current diagnosis for this admission?: Yes - Additional Information Resuscitation Status: Full Code Discharge Activity: Activity As Tolerated Referrals: ARASELI AGUILAR MD [Primary Care Provider] - Follow up as needed Prescriptions: Vancomycin HCl [Vancocin HCl] 125 mg PO Q6 7 Days #28 capsule Home Medications: Budesonide/Formoterol Fumarate [Symbicort HFA 160-4.5 mcg Inhaler 6 gm] 2 puff IH Q12 07/23/19 Famotidine [Pepcid 20 mg Tablet] 20 mg PO DAILY 07/23/19 Furosemide [Lasix 20 mg Tablet] 20 mg PO DAILY 07/23/19 Ipratropium/Albuterol Sulfate [Duoneb 3 ml Ampul] 3 ml NEB RTQID 07/23/19 Levothyroxine Sodium [Synthroid 0.05 mg Tablet] 100 mcg PO DAILY 07/23/19 Lorazepam [Ativan 1 mg Tablet] 0.5 mg PO BID 07/23/19 Potassium Chloride [Klor-Con M10] 10 meq PO DAILY 07/23/19 Levothyroxine Sodium [Synthroid 0.1 mg Tablet] 0.1 mg PO Q6AM tablet 08/02/19 Sertraline HCl [Zoloft 50 mg Tablet] 50 mg PO DAILY tablet 08/02/19 Vancomycin HCl [Vancocin HCl] 125 mg PO Q6 7 Days #28 capsule 08/02/19 History of Present Illiness History of Present Illness: TRENTON MCCOY is a 73 year old female 73-year-old female past medical history of COPD on 2 liters home O2, PNA, type II DM, HTN, STEPHANIE, afib, CHF, hypothyroidism who presented to the ED c/o as several day history of abdominal pain, N, V. She was found to be positive for c.diff and was started on oral vanc and flagyl. In the ED, she was hypotensive and got IVF. Pt had a central line placed by the ED physician and was started on levophed prior to her admission to the ICU. She was also started on bipap in the ED. Upon arrival to the ICU, she is awake and alert on bipap. She is on levophed and her SBP is in the 90s. Hospital Course Hospital Course: 73-year-old female past medical history of COPD on 2 liters home O2, PNA, type II DM, HTN, STEPHANIE, afib, CHF, hypothyroidism who presented to the ED c/o as several day history of abdominal pain, N, V. She was found to be positive for c.diff and was started on oral vanc and flagyl. In the ED, she was hypotensive and got IVF. Pt had a central line placed by the ED physician and was started on levophed prior to her admission to the ICU. She was also started on bipap in the ED. Upon arrival to the ICU, she is awake and alert on bipap. She is on levophed and her SBP is in the 90s. 07/26/2019. No acute events overnight. This morning patient noted to be very lethargic but arousable, was started on BiPAP with some improvement of her somnolence. Diarrhea has resolved. 07/27/2019. No acute events overnight. Patient currently resting in bed having her breakfast, significant improvement of her mental status, alert oriented x3, noted to have significant wheezing, diarrhea has resolved. P.o. tolerant. Denies any chest pain, nausea, vomiting, diarrhea, constipation or any urinary symptoms. 07/28/2019. No acute events overnight. This morning patient looks somnolent however easily arousable and in no apparent distress, diarrhea has resolved, denies any chest pain, nausea, vomiting, abdominal pain or any urinary symptoms. 07/29/2019. No acute events overnight. This morning patient appears a bit lethargic but arousable, does not appear to be in any apparent distress. Responds to questions appropriately. 07/30/2019. No acute events overnight. This morning patient is alert and awake, in no apparent distress, denies any fever, chills, nausea, vomiting, diarrhea, constipation or any urinary symptoms. Enjoying her breakfast. 07/31/2019. No acute events overnight. Patient not very compliant with her BiPAP, resting in bed, comfortably, enjoying her breakfast, alert oriented x3. Denies any fever, chills, nausea, vomiting, diarrhea, constipation or any urinary symptoms. ABG still shows CO2 retention which is at her baseline still has significant rhonchi on physical examination. 08/01/2018. No acute events overnight. Patient has been using her BiPAP over night however refuses to have her chest physical therapy. Patient is awake, alert, oriented x3, denies any fever, chills, nausea, vomiting, diarrhea, constipation or any urinary symptoms. Patient could potentially be discharged home but unfortunately still has significant wheezing on physical examination. Possible discharge home tomorrow. Physical Exam Vital Signs: Temp Pulse Resp BP Pulse Ox 98.5 F 106 H 16 132/85 H 100 08/02/19 12:00 08/02/19 12:00 08/02/19 12:00 08/02/19 12:00 08/02/19 12:00 Intake & Output 08/01/19 08/02/19 08/03/19 06:59 06:59 06:59 Intake Total 927 1000 Output Total 1350 1860 Balance -423 -860 Weight 96.6 kg 90.3 kg General appearance: PRESENT: no acute distress, obese Head exam: PRESENT: atraumatic Eye exam: PRESENT: PERRLA Mouth exam: PRESENT: moist Teeth exam: PRESENT: poor dentation Neck exam: ABSENT: carotid bruit, JVD, lymphadenopathy, thyromegaly Respiratory exam: PRESENT: decreased breath sounds Cardiovascular exam: PRESENT: RRR. ABSENT: diastolic murmur, rubs, systolic murmur GI/Abdominal exam: PRESENT: normal bowel sounds, soft. ABSENT: distended, guarding, mass, organolmegaly, rebound, tenderness Rectal exam: PRESENT: deferred Extremities exam: PRESENT: full ROM. ABSENT: calf tenderness, clubbing, pedal edema Neurological exam: PRESENT: alert, awake, oriented to person, oriented to place, oriented to time, oriented to situation, CN II-XII grossly intact. ABSENT: motor sensory deficit Psychiatric exam: PRESENT: appropriate affect, normal mood. ABSENT: homicidal ideation, suicidal ideation Skin exam: PRESENT: dry, intact, warm. ABSENT: cyanosis, rash Results Laboratory Results: WBC 4.2 10^3/uL (4.0-10.5) 07/27/19 06:26 RBC 2.51 10^6/uL (3.72-5.28) L 07/27/19 06:26 Hgb 8.4 g/dL (12.0-15.5) L 07/27/19 06:26 Hct 25.1 % (36.0-47.0) L 07/27/19 06:26 MCV 100 fl (80-97) H 07/27/19 06:26 MCH 33.3 pg (27.0-33.4) 07/27/19 06:26 MCHC 33.3 g/dL (32.0-36.0) 07/27/19 06:26 RDW 17.4 % (11.5-14.0) H 07/27/19 06:26 Plt Count 117 10^3/uL (150-450) L 07/27/19 06:26 Lymph % (Auto) 15.7 % (13-45) 07/27/19 06:26 [place] % (Auto) 6.7 % (3-13) 07/27/19 06:26 Eos % (Auto) 0.6 % (0-6) 07/27/19 06:26 Baso % (Auto) 0.2 % (0-2) 07/27/19 06:26 Absolute Neuts (auto) 3.2 10^3/uL (1.7-8.2) 07/27/19 06:26 Absolute Lymphs (auto) 0.7 10^3/uL (0.5-4.7) 07/27/19 06:26 Absolute Monos (auto) 0.3 10^3/uL (0.1-1.4) 07/27/19 06:26 Absolute Eos (auto) 0.0 10^3/uL (0.0-0.6) 07/27/19 06:26 Absolute Basos (auto) 0.0 10^3/uL (0.0-0.2) 07/27/19 06:26 Total Counted 100 07/25/19 04:37 Seg Neutrophils % 76.8 % (42-78) 07/27/19 06:26 Seg Neuts % (Manual) 94 % (42-78) H 07/25/19 04:37 Band Neutrophils % 3 % (3-5) 07/25/19 04:37 Lymphocytes % (Manual) 1 % (13-45) L 07/25/19 04:37 Monocytes % (Manual) 2 % (3-13) L 07/25/19 04:37 Eosinophils % (Manual) 0 % (0-6) 07/25/19 04:37 Basophils % (Manual) 0 % (0-2) 07/25/19 04:37 Abs Neuts (Manual) 19.4 10^3/uL (1.7-8.2) H 07/25/19 04:37 Abs Lymphs (Manual) 0.2 10^3/uL (0.5-4.7) L 07/25/19 04:37 Abs Monocytes (Manual) 0.4 10^3/uL (0.1-1.4) 07/25/19 04:37 Absolute Eos (Manual) 0.0 10^3/uL (0.0-0.6) 07/25/19 04:37 Abs Basophils (Manual) 0.0 10^3/uL (0.0-0.2) 07/25/19 04:37 Nucleated RBCs 1 /100 WBC (0) 07/23/19 00:42 Toxic Granulation 1+ 07/25/19 04:37 Toxic Vacuolation PRESENT 07/23/19 07:55 Dohle Bodies PRESENT 07/23/19 07:55 Platelet Estimate Cancelled 07/24/19 03:45 Clumped Platelets PRESENT 07/23/19 07:55 Platelet Comment DECREASED 07/25/19 04:37 Polychromasia SLIGHT 07/25/19 04:37 Hypochromasia SLIGHT 07/25/19 04:37 Poikilocytosis SLIGHT 07/24/19 05:40 Anisocytosis 2+ 07/25/19 04:37 Macrocytosis 1+ 07/25/19 04:37 Tear Drop Cells SLIGHT 07/24/19 05:40 Ovalocytes SLIGHT 07/24/19 05:40 Catracho Cells SLIGHT 07/24/19 05:40 Schistocytes SLIGHT 07/25/19 04:37 Carbonic Acid 1.92 mmol/L (1.05-1.35) H 07/31/19 05:06 HCO3/H2CO3 Ratio 20:1 07/31/19 05:06 ABG pH 7.42 (7.35-7.45) 07/31/19 05:06 ABG pCO2 63.7 mmHg (35-45) H 07/31/19 05:06 ABG pO2 121.5 mmHg (80-100) H 07/31/19 05:06 ABG HCO3 40.3 mmol/L (20-24) H 07/31/19 05:06 ABG Total CO2 42.3 mmol/L (21-25) H 07/31/19 05:06 ABG O2 Saturation 98.3 % (94-98) H 07/31/19 05:06 ABG Base Excess 13.3 mmol/L 07/31/19 05:06 VBG pH 7.23 (7.30-7.42) L 07/22/19 23:38 VBG pCO2 92.0 mmHg (35-63) H* 07/22/19 23:38 VBG HCO3 37.8 mmol/L (20-32) H 07/22/19 23:38 VBG Base Excess 7.3 mmol/L 07/22/19 23:38 FiO2 2L 07/31/19 05:06 Sodium 143.4 mmol/L (137-145) 07/28/19 05:46 Potassium 4.6 mmol/L (3.6-5.0) D 07/28/19 05:46 Chloride 106 mmol/L (98-107) 07/28/19 05:46 Carbon Dioxide 31 mmol/L (22-30) H 07/28/19 05:46 Anion Gap 6 (5-19) 07/28/19 05:46 BUN 19 mg/dL (7-20) 07/28/19 05:46 Creatinine 0.85 mg/dL (0.52-1.25) 07/28/19 05:46 Est GFR ( Amer) > 60 (>60) 07/28/19 05:46 Est GFR (MDRD) Non-Af > 60 (>60) 07/28/19 05:46 Glucose 202 mg/dL (75-110) H 07/28/19 05:46 POC Glucose 243 mg/dL (70-110) H 08/02/19 11:42 Lactic Acid 4.5 mmol/L (0.7-2.1) H 07/23/19 07:55 Calcium 7.7 mg/dL (8.4-10.2) L 07/28/19 05:46 Magnesium 1.8 mg/dL (1.6-2.3) 07/28/19 05:46 Total Bilirubin 0.2 mg/dL (0.2-1.3) 07/28/19 05:46 Direct Bilirubin 0.2 mg/dL (0.0-0.4) 07/28/19 05:46 Neonat Total Bilirubin Not Reportable 07/28/19 05:46 Neonat Direct Bilirubin Not Reportable 07/28/19 05:46 Neonat Indirect Bili Not Reportable 07/28/19 05:46 AST 12 U/L (14-36) L 07/28/19 05:46 ALT 11 U/L (<35) 07/28/19 05:46 Alkaline Phosphatase 80 U/L (38-126) 07/28/19 05:46 Troponin I 0.033 ng/mL 07/22/19 23:38 Total Protein 5.0 g/dL (6.3-8.2) L 07/28/19 05:46 Albumin 2.7 g/dL (3.5-5.0) L 07/28/19 05:46 Lipase 64.5 U/L (23-300) 07/22/19 23:00 Urine Color YELLOW 07/23/19 01:25 Urine Appearance SLIGHTLY-CLOUDY 07/23/19 01:25 Urine pH 5.0 (5.0-9.0) 07/23/19 01:25 Ur Specific [place] 1.014 07/23/19 01:25 Urine Protein 30 mg/dL (NEGATIVE) H 07/23/19 01:25 Urine Glucose (UA) NEGATIVE mg/dL (NEGATIVE) 07/23/19 01:25 Urine Ketones NEGATIVE mg/dL (NEGATIVE) 07/23/19 01:25 Urine Blood NEGATIVE (NEGATIVE) 07/23/19 01:25 Urine Nitrite NEGATIVE (NEGATIVE) 07/23/19 01:25 Urine Bilirubin NEGATIVE (NEGATIVE) 07/23/19 01:25 Urine Urobilinogen NEGATIVE mg/dL (<2.0) 07/23/19 01:25 Ur Leukocyte Esterase SMALL (NEGATIVE) H 07/23/19 01:25 Urine WBC (Auto) 21 /HPF 07/23/19 01:25 Urine RBC (Auto) 24 /HPF 07/23/19 01:25 U Hyaline Cast (Auto) 27 /LPF 07/23/19 01:25 Urine Mucus (Auto) RARE /LPF 07/23/19 01:25 Urine Yeast (Budding) PRESENT /HPF 07/23/19 01:25 Urine Ascorbic Acid 40 (NEGATIVE) H 07/23/19 01:25 Stl C. Difficile GDH Ag POSITIVE (NEGATIVE) 07/22/19 22:47 Stl C.difficile Tox A&B NEGATIVE (NEGATIVE) 07/22/19 22:47 Stl C.difficile Tox PCR POSITIVE (NEGATIVE) 07/22/19 22:47 Influenza A (Rapid) NEGATIVE (NEGATIVE) 07/23/19 02:33 Influenza B (Rapid) NEGATIVE (NEGATIVE) 07/23/19 02:33 Slides for Path Review Cancelled 07/24/19 03:45 07/22/19 23:38 Troponin I 0.033 Impressions: Chest X-Ray 07/22/19 23:20 IMPRESSION: No acute cardiopulmonary process copyright 2010 [employer]- All Rights Reserved Abdomen/Pelvis CT 07/23/19 00:39 IMPRESSION: Findings suggestive of mild acute sigmoid diverticulitis. Multiple other incidental findings, as above TECHNICAL DOCUMENTATION: Quality ID # 436: Final reports with documentation of one or more dose reduction techniques (e.g., Automated exposure control, adjustment of the mA and/or kV according to patient size, use of iterative reconstruction technique) copyright 2010 [employer]- All Rights Reserved Chest X-Ray 07/25/19 00:00 IMPRESSION: Slightly increasing right hilar consolidation. Plan Plan of Treatment: Patient is going home today with home health. Time Spent: Greater than 30 Minutes Stroke Is this a Stroke Patient?: No Acute Heart Failure - Is this a Heart Failure Patient?: No
[2019-08-02 16:47] VITALS: BP 144/79
== END 2019-08-02 19:38 | disposition home health service (06) | DRG 871 ==
LOC: ER 22:16 → EH 07-23 03:23 → ICU 07-23 07:18 → 3S 07-25 11:13 → 5 08-01 19:01
PROVIDERS: ADMIT Internal Medicine; ATTEND Internal Medicine
PROC: 06HY33Z Insertion of Infusion Device into Lower Vein, Percutaneous Approach (ICD-10-PCS; principal; 2019-07-23)
PROC: 03HB33Z Insertion of Infusion Device into Right Radial Artery, Percutaneous Approach (ICD-10-PCS; 2019-07-23)
DX: A41.9 Sepsis, unspecified organism (principal); J96.22 Acute and chronic respiratory failure with hypercapnia; J96.21 Acute and chronic respiratory failure with hypoxia; R65.21 Severe sepsis with septic shock; G93.41 Metabolic encephalopathy; A04.72 Enterocolitis due to Clostridium difficile, not specified as recurrent; C34.90 Malignant neoplasm of unspecified part of unspecified bronchus or lung; C79.31 Secondary malignant neoplasm of brain; I50.30 Unspecified diastolic (congestive) heart failure; N17.9 Acute kidney failure, unspecified; E87.6 Hypokalemia; I48.91 Unspecified atrial fibrillation; I25.10 Atherosclerotic heart disease of native coronary artery without angina pectoris; I11.0 Hypertensive heart disease with heart failure; J44.9 Chronic obstructive pulmonary disease, unspecified; E03.9 Hypothyroidism, unspecified; E11.65 Type 2 diabetes mellitus with hyperglycemia; I25.2 Old myocardial infarction; Z99.81 Dependence on supplemental oxygen
CPT/HCPCS: 36415; 36600; 51702; 71045; 74177; 80048; 80053; 81001; 82803; 82962; 83605; 83690; 83735; 84484; 85025; 87040; 87045; 87086; 87205; 87324; 87449; 87493; 87804; 93005; 93010; 94640; 94660; 96361; 96365; 96375; 99233; 99291; C1751; J1642; J1644; J1720; J1815; J1940; J2405; J2930; J3370; J3475; J3480; J3490; J7030; J7060; J7120; J7620; J7626

== ENCOUNTER 2019-08-17 09:53 | Inpatient (IN) | payer MEDICARE, OTHER ==
[2019-08-17 11:11] LABS: VENOUS BLOOD BASE EXCESS 10.3 mmol/L; VENOUS BLOOD HCO3 39.4 mmol/L (20-32); VENOUS BLOOD PH 7.35 (7.30-7.42)
[2019-08-17 11:13] LABS: ABSOLUTE EOSINOPHILS # (AUTO) 0.1 10^3/uL (0.0-0.6); ABSOLUTE LYMPHOCYTES (AUTO) 0.6 10^3/uL (0.5-4.7); ABSOLUTE MONOCYTES (AUTO) 0.6 10^3/uL (0.1-1.4); ABSOLUTE NEUT (AUTO) 6.3 10^3/uL (1.7-8.2); BASOPHILS % (AUTO) 0.4 % (0-2); EOSINOPHILS % (AUTO) 1.4 % (0-6); HEMATOCRIT 25.8 % (36.0-47.0); HEMOGLOBIN 8.8 g/dL (12.0-15.5); MEAN CORPUSCULAR HGB CONC 33.9 g/dL (32.0-36.0); MEAN CORPUSCULAR VOLUME 100 fl (80-97); MONOCYTES % (AUTO) 7.7 % (3-13); PLATELET COUNT 245 10^3/uL (150-450); RED BLOOD COUNT 2.58 10^6/uL (3.72-5.28); RED CELL DISTRIBUTION WIDTH 16.5 % (11.5-14.0); SEGMENTED NEUTROPHILS % (AUTO) 82.5 % (42-78); TOTAL CELLS COUNTED % (AUTO) 100 %; WHITE BLOOD COUNT 7.6 10^3/uL (4.0-10.5)
[2019-08-17 11:15] LABS: VENOUS BLOOD PCO2 73.3 mmHg (35-63)
[2019-08-17 11:16] LABS: INTERNATIONAL RATION (INR) 1.01; PROTHROMBIN TIME 13.3 SEC (11.4-15.4)
[2019-08-17 11:27] LABS: ALBUMIN 2.9 g/dL (3.5-5.0); ALKALINE PHOSPHATASE 57 U/L (38-126); ASPARTATE AMINO TRANSFERASE 20 U/L (14-36); BILIRUBIN,DIRECT 0.3 mg/dL (0.0-0.4); BILIRUBIN,TOTAL 0.3 mg/dL (0.2-1.3); BLOOD UREA NITROGEN 11 mg/dL (7-20); CALCIUM 9.2 mg/dL (8.4-10.2); GLUCOSE 100 mg/dL (75-110); POTASSIUM 3.5 mmol/L (3.6-5.0); TOTAL PROTEIN 5.5 g/dL (6.3-8.2)
[2019-08-17 11:32] LABS: CARBON DIOXIDE 38 mmol/L (22-30); CHLORIDE 96 mmol/L (98-107)
[2019-08-17 11:36] LABS: ANION GAP 4 (5-19)
[2019-08-17 12:23] LABS: APPEARANCE,URINE SLIGHTLY-CLOUDY; BILIRUBIN,URINE NEGATIVE (NEGATIVE); COLOR,URINE YELLOW; GLUCOSE, URINE NEGATIVE (NEGATIVE); KETONES,URINE NEGATIVE (NEGATIVE); PROTEIN,URINE NEGATIVE (NEGATIVE); UROBILINOGEN,URINE NEGATIVE mg/dL (<2.0)
--- NOTE | 2019-08-17 12:24 | RADIOLOGY REPORT (SQ) ---
EXAM DESCRIPTION: CHEST SINGLE VIEW COMPLETED DATE/TIME: 08/17/2019 12:14 pm REASON FOR STUDY: weakness COMPARISON: Chest x-ray 07/25/2019, 07/23/2019, 05/23/2019. EXAM PARAMETERS: NUMBER OF VIEWS: One view. TECHNIQUE: Single frontal radiographic view of the chest acquired. RADIATION DOSE: NA LIMITATIONS: None. FINDINGS: LUNGS AND PLEURA: No consolidation, pneumothorax or pleural effusion. MEDIASTINUM AND HILAR STRUCTURES: No masses. Contour normal. HEART AND VASCULAR STRUCTURES: The heart is upper normal limit in size. There is no overt vascular c ongestion. BONES: No acute findings. HARDWARE: None in the chest. IMPRESSION: NO ACUTE RADIOGRAPHIC FINDING IN THE CHEST. TECHNICAL DOCUMENTATION: JOB ID: [id number] [place]-64 2010 [employer]- All Rights Reserved Reading location - IP/workstation name: [email or web address]
[2019-08-17] MEDS ORDERED: IPRATROPIUM/ALBUTEROL 0.5-2.5 MG/3 ML AMPUL NEB ONE (12:33)
[2019-08-17] MEDS ORDERED: NORMAL SALINE 500 ML IV ONE (14:06)
[2019-08-17] MEDS ORDERED: METHYLPREDNISOLONE INJ 125 MG/2 ML SDV IV ONE (14:31)
[2019-08-17] MEDS: MAGNESIUM SULFATE/D5W 1 GM/100 ML RTUPB IV SCH ×2 (15:08→16:56)
--- NOTE | 2019-08-17 15:29 | ER Document Report ---
Entered by TAYLOR RODRIGUEZ SCRIBE 08/17/19 1120 Acting as scribe for:CAROLE ABEBE DO ED General - General Chief Complaint: General Weakness Stated Complaint: WEAKNESS Time Seen by Provider: 08/17/19 10:29 Mode of Arrival: Ambulatory Information source: Patient Notes: This 74-year-old female patient presents to the emergency department today with complaints of generalized weakness per family and nursing notes. Patient will not wake up or talk during interaction so history is extremely limited. TRAVEL OUTSIDE OF THE [place] IN LAST 30 DAYS: No - Related Data Allergies/Adverse Reactions: azithromycin Allergy (Verified 08/17/19 11:19) cephalexin Allergy (Verified 08/17/19 11:19) Penicillins Allergy (Verified 08/17/19 11:19) amoxicillin [Amoxicillin] Adverse Reaction (Verified 08/17/19 11:19) visual hallucinations erythromycin base [Erythromycin Base] Adverse Reaction (Verified 08/17/19 11:19) visual hallucinations Potassium Clavulanate * [From Augmentin] Adverse Reaction (Verified 08/17/19 11:19) visual hallucinations Past Medical History - General Information source: Patient - Social History Smoking Status: Never Smoker Cigarette use (# per day): No Chew tobacco use (# tins/day): No Frequency of alcohol use: None Drug Abuse: None Lives with: Family Family History: Reviewed & Not Pertinent, COPD, Malignancy - Lung cancer Patient has suicidal ideation: No Patient has homicidal ideation: No - Past Medical History Cardiac Medical History: Reports: Hx Atrial Fibrillation, Hx Congestive Heart Failure, Hx Coronary Artery Disease, Hx Heart Attack, Hx Hypertension Pulmonary Medical History: Reports: Hx Asthma, Hx Bronchitis, Hx COPD, Hx Pneumonia, Hx Respiratory Failure - Chronic respiratory failure, Hx Sleep Apnea Endocrine Medical History: Reports: Hx Diabetes Mellitus Type 2, Hx Hypothyroidism Malignancy Medical History: Reports: Hx Brain Cancer - Lung cancer with brain metastases, Hx Breast Cancer, 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 GI Medical History: Reports: Hx Gastroesophageal Reflux Disease Musculoskeletal Medical History: Reports Hx Arthritis, Reports Hx Gout, Reports Hx Musculoskeletal Deformity, Reports Hx Musculoskeletal Trauma Psychiatric Medical History: Reports: Hx Dementia, Hx Depression Infectious Medical History: Reports: Hx C-Diff Past Surgical History: Reports: Hx Cholecystectomy, Hx Orthopedic Surgery - Foot surgery, Other - Bilateral cataract surgery - Immunizations Immunizations up to date: Yes Hx Diphtheria, Pertussis, Tetanus Vaccination: Yes Hx Pneumococcal Vaccination: 08/30/12 Review of Systems - Review of Systems -: Yes ROS unobtainable due to patient's medical condition Physical Exam - Vital signs Vitals: Resp 23 H 08/17/19 10:05 Interpretation: Normal - General General appearance: Lethargic In distress: Mild - Respiratory Respiratory status: Depressed respirations Breath sounds: Wheezing - Cardiovascular Rhythm: Regular, Tachycardia - Abdominal Inspection: Normal Tenderness: Nontender - Neurological Cognition: Confused [place] Coma Scale Eye Opening: To Pain Raquel Coma Scale Verbal: Incomprehensible [place] Coma Scale Motor: Withdraws to Pain [place] Coma Scale Total: 8 - Psychological Associated symptoms: Other - Lethargic - Skin Skin Temperature: Warm Skin Moisture: Dry Course - Re-evaluation Re-evalutation: Patient is well-known to this facility. Presents with altered mental status. Blood gas with elevated CO2, greater than 70. Patient appears to be in CO2 narcosis likely from COPD exacerbation. No fever. No evidence for infection at this time. Patient placed on BiPAP and given nebulizer treatment with excellent results. She is more arousable. Will require admission due to being on BiPAP and altered mental status, acute encephalopathy. Discussed with the hospitalist service. Stable at the time of admission to the [facility]. Steroids and magnesium ordered. - Vital Signs Vital signs: Temp Pulse Resp BP Pulse Ox 97.9 F 114 H 17 145/97 H 100 08/18/19 15:30 08/18/19 15:30 08/18/19 15:30 08/18/19 15:30 08/18/19 15:30 - Laboratory Result Diagrams: 08/18/19 05:05 08/18/19 05:05 Laboratory results interpreted by me: 08/17/19 08/17/19 08/17/19 10:47 10:47 10:47 RBC 2.58 L Hgb 8.8 L Hct 25.8 L MCV 100 H MCH 34.0 H RDW 16.5 H Lymph % (Auto) 8.0 L Seg Neutrophils % 82.5 H VBG pCO2 73.3 H* VBG HCO3 39.4 H Potassium 3.5 L Chloride 96 L Carbon Dioxide 38 H Anion Gap 4 L Est GFR (MDRD) Non-Af 53 L Lactic Acid NT-Pro-B Natriuret Pep Total Protein 5.5 L Albumin 2.9 L Leukocyte Esterase Rfl 08/17/19 08/17/19 08/17/19 10:47 10:47 11:30 RBC Hgb Hct MCV MCH RDW Lymph % (Auto) Seg Neutrophils % VBG pCO2 VBG HCO3 Potassium Chloride Carbon Dioxide Anion Gap Est GFR (MDRD) Non-Af Lactic Acid 0.6 L NT-Pro-B Natriuret Pep 913 H Total Protein Albumin Leukocyte Esterase Rfl TRACE H 08/17/19 14:10 RBC Hgb Hct MCV MCH RDW Lymph % (Auto) Seg Neutrophils % VBG pCO2 VBG HCO3 Potassium Chloride Carbon Dioxide Anion Gap Est GFR (MDRD) Non-Af Lactic Acid 0.6 L NT-Pro-B Natriuret Pep Total Protein Albumin Leukocyte Esterase Rfl - Diagnostic Test Radiology reviewed: Reports reviewed Critical Care Note - Critical Care Note Total time excluding time spent on procedures (mins): 35 - Evaluation and management of altered mental status, management of hypercapnia, coordination of admission, multiple re-evaluations Discharge - Discharge Clinical Impression: Acute and chronic respiratory failure with hypercapnia, COPD exacerbation Condition: Stable Disposition: ADMITTED INPATIENT Admitting Provider: Son (Hospitalist) - [facility] Admitted: I[facility]U I personally performed the services described in the documentation, reviewed and edited the documentation which was dictated to the scribe in my presence, and it accurately records my words and actions.
[2019-08-17] MEDS ORDERED: ACETAMINOPHEN 325 MG TABLET PO PRN (16:26)
[2019-08-17] MEDS ORDERED: ALBUTEROL SULFATE 0.083% NEB 2.5 MG/3 ML AMPUL NEB PRN (16:26)
[2019-08-17] MEDS ORDERED: ONDANSETRON HCL INJ/PF 4 MG/2 ML SDV IV PRN (16:32)
[2019-08-17] MEDS ORDERED: MAG HYDROX/AL HYDROX/SIMETH SUSP 30 ML UDCUP PO PRN (16:32)
[2019-08-17] MEDS ORDERED: MAGNESIUM HYDROXIDE SUSP 30 ML UDCUP PO PRN (16:32)
[2019-08-17] MEDS ORDERED: GUAIFENESIN/CODEINE PHOS 100-10 MG/ 5 ML UDC PO PRN (16:55)
--- NOTE | 2019-08-17 17:01 | PDOC H&P ---
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 difficile who is well-known to the hospitalist service. She presented to the emergency department today via EMS with complaint of 2 to 3 days of progressively worsening altered mental status with poor p.o. intake per family members. No family members were present at the time of my assessment. Evaluation in the emergency department revealed tachycardia (HR 117), Tachypnea (RR 25), hypoxia on baseline oxygen requirement, baseline anemia (hemoglobin 8.8), VBG PCO2 of 73 (near baseline) elevated bicarb (38) normal troponin, proBNP of 913, normal lactic acid, EKG showing sinus tachycardia, and benign chest x-ray. She is provided IV magnesium, Solu-Medrol, nebulizer treatments and placed on BiPAP. Is referred to the hospitalist service for admission and management of the above-stated complaints and findings. Past Medical History Cardiac Medical History: Reports: Atrial Fibrillation, Congestive Heart Failure, Coronary Artery Disease, Myocardial Infarction, Hypertension Denies: DVT, Hyperlipidema, Pulmonary Embolism Pulmonary Medical History: Reports: Asthma, Bronchitis, Chronic Obstructive Pulmonary Disease (COPD), Pneumonia, Respiratory Failure - Chronic respiratory failure, Sleep Apnea Denies: Tuberculosis EENT Medical History: Reports: None Neurological Medical History: Denies: Ischemic CVA, Seizures Endocrine Medical History: Reports: Diabetes Mellitus Type 2, Hypothyroidism, Obesity Denies: Diabetes Mellitus Type 1, Hyperthyroidism Renal/ Medical History: Reports: None Denies: End Stage Renal Disease Malignancy Medical History: Reports: Brain Cancer - Lung cancer with brain met astases, Breast Cancer, 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 GI Medical History: Reports: Gastroesophageal Reflux Disease Denies: Cirrhosis, Hepatitis Musculoskeltal Medical History: Reports: Arthritis, Gout Skin Medical History: Reports: None Psychiatric Medical History: Reports: Dementia, Depression Denies: Bipolar Disorder Hematology: Reports: Anemia, Bleeding Tendencies Infectious Medical History: Reports: Clostridium Difficile Past Surgical History Past Surgical History: Reports: Cholecystectomy, Orthopedic Surgery - Foot surgery, Other - Bilateral cataract surgery Social History Information Source: [facility] Records Lives with: Family Smoking Status: Never Smoker Electronic Cigarette use?: No Frequency of Alcohol Use: None Hx Recreational Drug Use: No Drugs: None Hx Prescription Drug Abuse: No - Advance Directive Resuscitation Status: Full Code Family History Family History: Reviewed & Not Pertinent, COPD, Malignancy - Lung cancer Parental Family History Reviewed: No - AMS Children Family History Reviewed: Unknown Sibling(s) Family History Reviewed.: Unknown Medication/Allergy Home Medications: Famotidine [Pepcid 20 mg Tablet] 20 mg PO DAILY 07/23/19 Furosemide [Lasix 20 mg Tablet] 20 mg PO DAILY 07/23/19 Ipratropium/Albuterol Sulfate [Duoneb 3 ml Ampul] 3 ml NEB RTQID 07/23/19 Potassium Chloride [Klor-Con M10] 10 meq PO DAILY 07/23/19 Levofloxacin [Levaquin 500 mg Tablet] 500 mg PO DAILY MDD FILLED 08/12 FOR 10 DAY SUPPLY 08/17/19 Levothyroxine Sodium [Synthroid 50 Mcg Tablet] mcg PO Q6AM 08/17/19 Sertraline HCl [Zoloft 50 mg Tablet] 50 mg PO DAILY 08/17/19 Allergies/Adverse Reactions: azithromycin Allergy (Verified 08/17/19 11:19) cephalexin Allergy (Verified 08/17/19 11:19) Penicillins Allergy (Verified 08/17/19 11:19) amoxicillin [Amoxicillin] Adverse Reaction (Verified 08/17/19 11:19) visual hallucinations erythromycin base [Erythromycin Base] Adverse Reaction (Verified 08/17/19 11:19) visual hallucinations Potassium Clavulanate * [From Augmentin] Adverse Reaction (Verified 08/17/19 11:19) visual hallucinations Review of Systems ROS unobtainable: Due to mental status Physical Exam Vital Signs: Temp Pulse Resp BP Pulse Ox 98.6 F 24 H 108/72 100 08/17/19 15:02 08/17/19 15:13 08/17/19 15:20 08/17/19 15:13 Intake & Output 08/16/19 08/17/19 08/18/19 06:59 06:59 06:59 Intake Total 600 Balance 600 General appearance: PRESENT: disheveled, mild distress, obese, well-developed, well-nourished, other - chronically ill appearing Head exam: PRESENT: atraumatic, normocephalic Eye exam: PRESENT: conjunctiva pale, EOMI, PERRLA. ABSENT: scleral icterus Ear exam: PRESENT: normal external ear exam Mouth exam: PRESENT: dry mucosa, tongue midline Neck exam: ABSENT: carotid bruit, JVD, lymphadenopathy, thyromegaly Respiratory exam: PRESENT: prolonged expiratory phas, rhonchi - throughout, symmetrical, tachypnea, wheezes - throughout, other - BiPAP. ABSENT: rales Cardiovascular exam: PRESENT: RRR, +S1, +S2, tachycardia - HR 100-110. ABSENT: diastolic murmur, rubs, systolic murmur Pulses: PRESENT: normal dorsalis pedis pul Vascular exam: PRESENT: normal capillary refill GI/Abdominal exam: PRESENT: normal bowel sounds, soft. ABSENT: distended, guarding, mass, organolmegaly, rebound, tenderness Rectal exam: PRESENT: deferred Extremities exam: PRESENT: full ROM - moves all extremities spontaneously. ABSENT: calf tenderness, clubbing, pedal edema Neurological exam: PRESENT: CN II-XII grossly intact, other - Withdraws to pain (sternal rub). ABSENT: motor sensory deficit Skin exam: PRESENT: dry, intact, warm. ABSENT: cyanosis, rash Results Laboratory Results: 08/17/19 10:47 08/17/19 10:47 08/17/19 08/17/19 08/17/19 10:47 10:47 10:47 WBC 7.6 RBC 2.58 L Hgb 8.8 L Hct 25.8 L MCV 100 H MCH 34.0 H MCHC 33.9 RDW 16.5 H Plt Count 245 Seg Neutrophils % 82.5 H VBG pH 7.35 VBG pCO2 73.3 H* VBG HCO3 39.4 H VBG Base Excess 10.3 Sodium 138.2 Potassium 3.5 L Chloride 96 L Carbon Dioxide 38 H Anion Gap 4 L BUN 11 Creatinine 1.01 Est GFR ( Amer) > 60 Glucose 100 Lactic Acid Calcium 9.2 Total Bilirubin 0.3 AST 20 Alkaline Phosphatase 57 Total Protein 5.5 L Albumin 2.9 L Urine Color Urine Appearance Urine pH Ur Specific [place] Urine Protein Urine Glucose (UA) Urine Ketones Urine Blood Urine RBC (Auto) 08/17/19 08/17/1920 10:47 11:30 14:10 WBC RBC Hgb Hct MCV MCH MCHC RDW Plt Count Seg Neutrophils % VBG pH VBG pCO2 VBG HCO3 VBG Base Excess Sodium Potassium Chloride Carbon Dioxide Anion Gap BUN Creatinine Est GFR ( Amer) Glucose Lactic Acid 0.6 L 0.6 L Calcium Total Bilirubin AST Alkaline Phosphatase Total Protein Albumin Urine Color YELLOW Urine Appearance SLIGHTLY-CLOUDY Urine pH 6.0 Ur Specific [place] 1.010 Urine Protein NEGATIVE Urine Glucose (UA) NEGATIVE Urine Ketones NEGATIVE Urine Blood NEGATIVE Urine RBC (Auto) 1 08/17/19 08/17/19 10:47 10:47 Troponin I < 0.012 NT-Pro-B Natriuret Pep 913 H Impressions: Chest X-Ray 08/17/19 10:33 IMPRESSION: NO ACUTE RADIOGRAPHIC FINDING IN THE CHEST. Assessment and Plan - Diagnosis (1) Acute and chronic respiratory failure with hypercapnia Is this a current diagnosis for this admission?: Yes Plan: Secondary to COPD exacerbation. CXR is negative for acute findings. VBG: pH 7.35, pCO2 73.3, HCO3 39.4 ABG after placement on BiPAP pending Patient is admitted to [facility] on continuous cardiac telemetry. She is provided supplemental oxygen and BiPAP as needed to maintain oxygen saturations greater than 89%. Continue scheduled and as needed nebulizer treatments. Continue IV Solu-Medrol. Mucinex twice daily. Mucomyst nebulizer treatments twice daily. Daliresp daily Pulmonary toilet when off BiPAP. (2) Acute exacerbation of chronic obstructive airways disease Is this a current diagnosis for this admission?: Yes Plan: No evidence of bronchitis or pneumonia; WBCs nml, afebril, nml CXR No indications for antibiotic therapy at this time. Remaining management as above. (3) Altered mental status Qualifiers: Altered mental status type: somnolence Qualified Code(s): R40.0 - Somnolence Is this a current diagnosis for this admission?: Yes Plan: Secondary to #1 Evaluation and management as above. Supportive care. Fall precautions. (4) Anemia Qualifiers: Anemia type: unspecified type Qualified Code(s): D64.9 - Anemia, unspecified Is this a current diagnosis for this admission?: Yes Plan: Hgb 8.8; at baseline No evidence of active bleeding at this time. Anemia panel last checked in 05/18; negative for iron deficiency. Anemia is likely related to chronic disease Multivitamin with iron supplementation daily (5) CHF (congestive heart failure) Qualifiers: Heart failure type: diastolic Heart failure chronicity: chronic Qualified Code(s): I50.32 - Chronic diastolic (congestive) heart failure Is this a current diagnosis for this admission?: Yes Plan: Stable and without exacerbation at this time. Continue home medication regiment. Cardiac diet when mentation allows for p.o. intake. Daily weights. Strict I&Os (6) Diabetes Qualifiers: Diabetes mellitus type: type 2 Chronic kidney disease stage: stage 2 (mild) Is this a current diagnosis for this admission?: Yes Plan: Consistent Carb/cardiac diet Accu-Cheks before meals and at bedtime with Humalog for sliding scale coverage. Hypoglycemia protocol in place. - Time Time Spent with patient: 35 or more minutes Medications reviewed and adjusted accordingly: Yes Anticipated discharge: Home
[2019-08-17] MEDS ORDERED: GLUCAGON,HUMAN RECOMB 1 MG INJ IM PRN (17:29)
[2019-08-17] MEDS ORDERED: DEXTROSE 50%-WATER 25 GM/50 ML DISP.SYRIN IV PRN ×2 (17:29)
[2019-08-17] MEDS ORDERED: DEXTROSE 40% GEL 15 GM TUBE PO PRN ×2 (17:29)
[2019-08-17 18:09] LABS: ARTERIAL BLOOD FIO2 3L; ARTERIAL BLOOD H2CO3 1.72 mmol/L (1.05-1.35); ARTERIAL BLOOD O2 SATURATION 97.7 % (94-98); ARTERIAL BLOOD PCO2 57.1 mmHg (35-45); ARTERIAL BLOOD PH 7.42 (7.35-7.45); ARTERIAL BLOOD PO2 103.2 mmHg (80-100); ARTERIAL BLOOD TOTAL CO2 37.7 mmol/L (21-25)
[2019-08-17] MEDS: NORMAL SALINE 1000 ML 1,000 ML IV PRN ×2 (18:32→23:20)
[2019-08-17 19:01] LABS: URINE AMPHETAMINES SCREEN NEGATIVE; URINE BARBITURATES SCREEN NEGATIVE; URINE BENZODIAZEPINES SCREEN NEGATIVE; URINE COCAINE SCREEN NEGATIVE; URINE MARIJUANA (THC) SCREEN NEGATIVE; URINE METHADONE SCREEN NEGATIVE; URINE PHENCYCLIDINE SCREEN NEGATIVE
--- NOTE | 2019-08-17 19:27 | EKG REPORT ---
SEVERITY:- ABNORMAL ECG - SINUS TACHYCARDIA MULTIPLE VENTRICULAR PREMATURE COMPLEXES RBBB AND LAFB : Confirmed by: Susan Mishra MD 17-Aug-2019 19:26:37
[2019-08-17] MEDS: IPRATROPIUM/ALBUTEROL 0.5-2.5 MG/3 ML AMPUL NEB SCH (20:47)
[2019-08-17] MEDS: ACETYLCYSTEINE 20% SOLN 800 MG/4 ML VIAL.NEB NEB SCH (20:48)
[2019-08-17] MEDS: GUAIFENESIN 600 MG TABLET.SA PO SCH (21:28)
[2019-08-17] MEDS: METHYLPREDNISOLONE INJ 40 MG/1 ML SDV IV SCH (21:28)
[2019-08-17] MEDS: HEPARIN SOD (PORCINE) 5,000 UNIT/ML 1 ML VIAL SUBCUT SCH (21:28)
[2019-08-17] MEDS: FAMOTIDINE INJ/PF 20 MG/2 ML SDV IV SCH (21:28)
[2019-08-17] MEDS: INSULIN LISPRO 100 UNIT/ML 3 ML VIAL SUBCUT SCH (21:31)
[2019-08-18] MEDS: IPRATROPIUM/ALBUTEROL 0.5-2.5 MG/3 ML AMPUL NEB SCH ×4 (02:17→20:58)
[2019-08-18] MEDS: HEPARIN SOD (PORCINE) 5,000 UNIT/ML 1 ML VIAL SUBCUT SCH ×3 (05:17→21:53)
[2019-08-18] MEDS: METHYLPREDNISOLONE INJ 40 MG/1 ML SDV IV SCH ×3 (05:17→21:53)
[2019-08-18 05:25] LABS: HEMATOCRIT 24.2 % (36.0-47.0); HEMOGLOBIN 8.3 g/dL (12.0-15.5); MEAN CORPUSCULAR HEMOGLOBIN 33.9 pg (27.0-33.4); MEAN CORPUSCULAR HGB CONC 34.5 g/dL (32.0-36.0); MEAN CORPUSCULAR VOLUME 98 fl (80-97); PLATELET COUNT 248 10^3/uL (150-450); RED BLOOD COUNT 2.46 10^6/uL (3.72-5.28); RED CELL DISTRIBUTION WIDTH 15.9 % (11.5-14.0); WHITE BLOOD COUNT 6.5 10^3/uL (4.0-10.5)
[2019-08-18 05:51] LABS: BLOOD UREA NITROGEN 11 mg/dL (7-20); CALCIUM 8.7 mg/dL (8.4-10.2); GLUCOSE 147 mg/dL (75-110); POTASSIUM 4.4 mmol/L (3.6-5.0)
[2019-08-18 05:57] LABS: ANION GAP 5 (5-19); CARBON DIOXIDE 31 mmol/L (22-30); CHLORIDE 105 mmol/L (98-107)
[2019-08-18] MEDS: NORMAL SALINE 1000 ML 1,000 ML IV PRN ×3 (07:20→22:46)
[2019-08-18] MEDS: ACETYLCYSTEINE 20% SOLN 800 MG/4 ML VIAL.NEB NEB SCH ×2 (08:38→20:58)
[2019-08-18] MEDS: INSULIN LISPRO 100 UNIT/ML 3 ML VIAL SUBCUT SCH ×4 (08:46→21:54)
--- NOTE | 2019-08-18 10:36 | PDOC PROGRESS REPORT ---
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 difficile who was admitted 08/17/2019 for altered mental status, acute respiratory failure with hypoxia, and COPD exacerbation. Patient was seen on morning rounds. She is found resting in bed, comfortably, on supplemental oxygen via nasal cannula. She is alert and oriented to self, place, year. She does not recall coming to the emergency department yesterday but is able to describe 2 to 3 days of worsening cough prior to arrival. She reports that she is feeling well today. She denies fever, chills, chest pain, palpitations, orthopnea, abdominal pain, nausea vomiting and diarrhea. She has no questions or concerns at this time. No concerns per nursing. Reason For Visit: ACUTE AND CHRONIC RESPIRATORY FAILURE Physical Exam Vital Signs: Temp Pulse Resp BP Pulse Ox 98.0 F 106 H 18 111/63 100 08/18/19 07:36 08/18/19 08:30 08/18/19 08:30 08/18/19 07:36 08/18/19 08:30 Intake & Output 08/17/19 08/18/19 08/19/19 06:59 06:59 06:59 Intake Total 1300 Balance 1300 Weight 76.9 kg General appearance: PRESENT: no acute distress, cooperative, obese, well- developed, well-nourished, other - Chronically ill-appearing Head exam: PRESENT: atraumatic, normocephalic Eye exam: PRESENT: conjunctiva pink, EOMI, PERRLA. ABSENT: scleral icterus Ear exam: PRESENT: normal external ear exam Mouth exam: PRESENT: moist, tongue midline Teeth exam: PRESENT: poor dentation Neck exam: ABSENT: carotid bruit, JVD, lymphadenopathy, thyromegaly Respiratory exam: PRESENT: prolonged expiratory phas, rhonchi - Throughout, symmetrical, unlabored, wheezes - Throughout, other - Baseline oxygen requirement. ABSENT: rales Cardiovascular exam: PRESENT: RRR, +S1, +S2. ABSENT: diastolic murmur, rubs, systolic murmur Pulses: PRESENT: normal dorsalis pedis pul Vascular exam: PRESENT: normal capillary refill GI/Abdominal exam: PRESENT: normal bowel sounds, soft. ABSENT: distended, guarding, mass, organolmegaly, rebound, tenderness Rectal exam: PRESENT: deferred Extremities exam: PRESENT: full ROM. ABSENT: calf tenderness, clubbing, pedal edema Neurological exam: PRESENT: alert, awake, oriented to person, oriented to place, oriented to time, oriented to situation, CN II-XII grossly intact, other - Baseline mentation. ABSENT: motor sensory deficit Psychiatric exam: PRESENT: appropriate affect, normal mood. ABSENT: homicidal ideation, suicidal ideation Skin exam: PRESENT: dry, intact, warm. ABSENT: cyanosis, rash Results Laboratory Results: 08/18/19 05:05 08/18/19 05:05 08/17/19 08/17/19 08/17/19 10:47 10:47 10:47 WBC 7.6 RBC 2.58 L Hgb 8.8 L Hct 25.8 L MCV 100 H MCH 34.0 H MCHC 33.9 RDW 16.5 H Plt Count 245 Seg Neutrophils % 82.5 H Carbonic Acid HCO3/H2CO3 Ratio ABG pH ABG pCO2 ABG pO2 ABG HCO3 ABG O2 Saturation ABG Base Excess VBG pH 7.35 VBG pCO2 73.3 H* VBG HCO3 39.4 H VBG Base Excess 10.3 FiO2 Sodium 138.2 Potassium 3.5 L Chloride 96 L Carbon Dioxide 38 H Anion Gap 4 L BUN 11 Creatinine 1.01 Est GFR ( Amer) > 60 Glucose 100 Lactic Acid Calcium 9.2 Total Bilirubin 0.3 AST 20 Alkaline Phosphatase 57 Total Protein 5.5 L Albumin 2.9 L TSH Urine Color Urine Appearance Urine pH Ur Specific [place] Urine Protein Urine Glucose (UA) Urine Ketones Urine Blood Urine RBC (Auto) 08/17/19 08/17/19 08/17/19 10:47 11:30 14:10 WBC RBC Hgb Hct MCV MCH MCHC RDW Plt Count Seg Neutrophils % Carbonic Acid HCO3/H2CO3 Ratio ABG pH ABG pCO2 ABG pO2 ABG HCO3 ABG O2 Saturation ABG Base Excess VBG pH VBG pCO2 VBG HCO3 VBG Base Excess FiO2 Sodium Potassium Chloride Carbon Dioxide Anion Gap BUN Creatinine Est GFR ( Amer) Glucose Lactic Acid 0.6 L 0.6 L Calcium Total Bilirubin AST Alkaline Phosphatase Total Protein Albumin TSH Urine Color YELLOW Urine Appearance SLIGHTLY-CLOUDY Urine pH 6.0 Ur Specific [place] 1.010 Urine Protein NEGATIVE Urine Glucose (UA) NEGATIVE Urine Ketones NEGATIVE Urine Blood NEGATIVE Urine RBC (Auto) 1 08/17/19 08/17/19 08/17/19 16:45 16:45 17:55 WBC RBC Hgb Hct MCV MCH MCHC RDW Plt Count Seg Neutrophils % Carbonic Acid 1.72 H HCO3/H2CO3 Ratio 20:1 ABG pH 7.42 ABG pCO2 57.1 H ABG pO2 103.2 H ABG HCO3 36.0 H ABG O2 Saturation 97.7 ABG Base Excess 10.0 VBG pH VBG pCO2 VBG HCO3 VBG Base Excess FiO2 3L Sodium Potassium Chloride Carbon Dioxide Anion Gap BUN Creatinine Est GFR ( Amer) Glucose Lactic Acid 0.7 Calcium Total Bilirubin AST Alkaline Phosphatase Total Protein Albumin TSH 4.71 H Urine Color Urine Appearance Urine pH Ur Specific [place] Urine Protein Urine Glucose (UA) Urine Ketones Urine Blood Urine RBC (Auto) 08/18/19 08/18/19 05:05 05:05 WBC 6.5 RBC 2.46 L Hgb 8.3 L Hct 24.2 L MCV 98 H MCH 33.9 H MCHC 34.5 RDW 15.9 H Plt Count 248 Seg Neutrophils % Carbonic Acid HCO3/H2CO3 Ratio ABG pH ABG pCO2 ABG pO2 ABG HCO3 ABG O2 Saturation ABG Base Excess VBG pH VBG pCO2 VBG HCO3 VBG Base Excess FiO2 Sodium 140.7 Potassium 4.4 Chloride 105 Carbon Dioxide 31 H Anion Gap 5 BUN 11 Creatinine 0.87 Est GFR ( Amer) > 60 Glucose 147 H Lactic Acid Calcium 8.7 Total Bilirubin AST Alkaline Phosphatase Total Protein Albumin TSH Urine Color Urine Appearance Urine pH Ur Specific [place] Urine Protein Urine Glucose (UA) Urine Ketones Urine Blood Urine RBC (Auto) 08/17/19 08/17/19 10:47 10:47 Troponin I < 0.012 NT-Pro-B Natriuret Pep 913 H Impressions: Chest X-Ray 08/17/19 10:33 IMPRESSION: NO ACUTE RADIOGRAPHIC FINDING IN THE CHEST. Assessment and Plan - Diagnosis (1) Acute and chronic respiratory failure with hypercapnia Is this a current diagnosis for this admission?: Yes Plan: Improved; patient now maintaining oxygen saturations on supplemental oxygen via nasal cannula. Secondary to COPD exacerbation. CXR is negative for acute findings. VBG: pH 7.35, pCO2 73.3, HCO3 39.4 ABG after placement on BiPAP demonstrates chronic respiratory failure with acidosis. Patient is admitted to [facility] on continuous cardiac telemetry. She is provided supplemental oxygen and BiPAP as needed to maintain oxygen saturations greater than 89%. Continue scheduled and as needed nebulizer treatments. Continue IV Solu-Medrol. Mucinex twice daily. Mucomyst nebulizer treatments twice daily. Daliresp daily Pulmonary toilet when off BiPAP. (2) Acute exacerbation of chronic obstructive airways disease Is this a current diagnosis for this admission?: Yes Plan: No evidence of bronchitis or pneumonia; WBCs nml, afebril, nml CXR No indications for antibiotic therapy at this time. Remaining management as above. (3) Altered mental status Qualifiers: Altered mental status type: somnolence Qualified Code(s): R40.0 - Somno lence Is this a current diagnosis for this admission?: Yes Plan: Multifactorial secondary to COPD exacerbation and narcotic medications. UDS is positive for opiates. Patient is now prescribed controlled medications. Remaining evaluation and management as above. Supportive care. Fall precautions. (4) Anemia Qualifiers: Anemia type: unspecified type Qualified Code(s): D64.9 - Anemia, unspecified Is this a current diagnosis for this admission?: Yes Plan: Hgb 8.8; at baseline No evidence of active bleeding at this time. Anemia panel last checked in 05/18; negative for iron deficiency. Anemia is likely related to chronic disease Multivitamin with iron supplementation daily (5) CHF (congestive heart failure) Qualifiers: Heart failure type: diastolic Heart failure chronicity: chronic Qualified Code(s): I50.32 - Chronic diastolic (congestive) heart failure Is this a current diagnosis for this admission?: Yes Plan: Stable and without exacerbation at this time. Continue home medication regiment. Cardiac diet when mentation allows for p.o. intake. Daily weights. Strict I&Os (6) Diabetes Qualifiers: Diabetes mellitus type: type 2 Chronic kidney disease stage: stage 2 (mild) Is this a current diagnosis for this admission?: Yes Plan: Consistent Carb/cardiac diet Accu-Cheks before meals and at bedtime with Humalog for sliding scale coverage. Hypoglycemia protocol in place. - Time Time Spent with patient: 25-34 minutes Medications reviewed and adjusted accordingly: Yes Anticipated discharge: Home with Homehealth Within: within 72 hours
[2019-08-18] MEDS: DOCUSATE SODIUM 100 MG CAPSULE PO SCH (11:01)
[2019-08-18] MEDS: ROFLUMILAST 500 MCG TABLET PO SCH (11:02)
[2019-08-18] MEDS: FAMOTIDINE INJ/PF 20 MG/2 ML SDV IV SCH ×2 (11:02→21:53)
[2019-08-18] MEDS: MULTIVITAMINS W-IRON TABLET, CHEWABLE PO SCH (11:02)
[2019-08-18] MEDS: GUAIFENESIN 600 MG TABLET.SA PO SCH ×2 (11:02→21:53)
--- NOTE | 2019-08-18 18:35 | EKG REPORT ---
SEVERITY:- ABNORMAL ECG - SINUS TACHYCARDIA MULTIPLE ATRIAL PREMATURE COMPLEXES NONSPECIFIC IVCD WITH LAD : Confirmed by: Susan Mishra MD 18-Aug-2019 18:34:14
[2019-08-19] MEDS: IPRATROPIUM/ALBUTEROL 0.5-2.5 MG/3 ML AMPUL NEB SCH ×3 (02:38→14:14)
[2019-08-19 06:33] LABS: HEMATOCRIT 23.8 % (36.0-47.0); MEAN CORPUSCULAR HEMOGLOBIN 33.5 pg (27.0-33.4); MEAN CORPUSCULAR HGB CONC 33.6 g/dL (32.0-36.0); MEAN CORPUSCULAR VOLUME 100 fl (80-97); PLATELET COUNT 274 10^3/uL (150-450); RED BLOOD COUNT 2.39 10^6/uL (3.72-5.28); RED CELL DISTRIBUTION WIDTH 16.2 % (11.5-14.0)
[2019-08-19] MEDS: NORMAL SALINE 1000 ML 1,000 ML IV PRN (06:47)
[2019-08-19] MEDS: METHYLPREDNISOLONE INJ 40 MG/1 ML SDV IV SCH (06:47)
[2019-08-19] MEDS: HEPARIN SOD (PORCINE) 5,000 UNIT/ML 1 ML VIAL SUBCUT SCH ×2 (06:47→13:15)
[2019-08-19 06:49] LABS: BLOOD UREA NITROGEN 15 mg/dL (7-20); CALCIUM 7.9 mg/dL (8.4-10.2); CARBON DIOXIDE 29 mmol/L (22-30); GLUCOSE 132 mg/dL (75-110); POTASSIUM 3.8 mmol/L (3.6-5.0)
[2019-08-19 06:55] LABS: CHLORIDE 107 mmol/L (98-107)
[2019-08-19 06:59] LABS: ANION GAP 6 (5-19)
[2019-08-19] MEDS: INSULIN LISPRO 100 UNIT/ML 3 ML VIAL SUBCUT SCH ×2 (08:20→13:22)
[2019-08-19] MEDS: ACETYLCYSTEINE 20% SOLN 800 MG/4 ML VIAL.NEB NEB SCH (08:25)
[2019-08-19] MEDS: DOCUSATE SODIUM 100 MG CAPSULE PO SCH (09:58)
[2019-08-19] MEDS: MULTIVITAMINS W-IRON TABLET, CHEWABLE PO SCH (09:58)
[2019-08-19] MEDS: ROFLUMILAST 500 MCG TABLET PO SCH (09:58)
[2019-08-19] MEDS: GUAIFENESIN 600 MG TABLET.SA PO SCH (09:58)
[2019-08-19] MEDS ORDERED: FUROSEMIDE 20 MG TABLET PO SCH (10:00)
[2019-08-19] MEDS ORDERED: FAMOTIDINE 20 MG TABLET PO SCH (10:00)
[2019-08-19] MEDS ORDERED: SERTRALINE HCL 50 MG TABLET PO SCH (10:00)
--- NOTE | 2019-08-19 11:55 | PDOC DISCHARGE SUMMARY ---
Impression - Admit/DC Date/PCP Admission Date/Primary Care Provider: 08/17/19 16:05 ARASELI AGUILAR MD Discharge Date: 08/19/19 - Discharge Diagnosis (1) Acute and chronic respiratory failure with hypercapnia Is this a current diagnosis for this admission?: Yes (2) Acute exacerbation of chronic obstructive airways disease Is this a current diagnosis for this admission?: Yes (3) Altered mental status Is this a current diagnosis for this admission?: Yes (4) Anemia Is this a current diagnosis for this admission?: Yes (5) CHF (congestive heart failure) Is this a current diagnosis for this admission?: Yes (6) Diabetes Is this a current diagnosis for this admission?: Yes - Additional Information Resuscitation Status: Full Code Discharge Diet: Cardiac, Diabetic Discharge Activity: Activity As Tolerated, Balance Activity w/Rest Referrals: ARASELI AGUILAR MD [Primary Care Provider] - 08/28/19 11:00 am Prescriptions: Roflumilast [Daliresp 500 Mcg Tablet] 500 mcg PO DAILY #30 tablet Prednisone [Deltasone 20 mg Tablet] 60 mg PO DAILY #12 tablet Ipratropium/Albuterol Sulfate [Duoneb 3 ml Ampul] 3 ml NEB RTQID #120 Ipratropium/Albuterol Sulfate [Duoneb 3 ml Ampul] 3 ml NEB RTQ6 #120 vial.neb Guaifenesin [Mucinex Sr 600 mg Tablet.sa] 600 mg PO Q12 #14 tablet.sa Acetylcysteine [Mucomist 20% Soln 800 mg/4 mL] 600 mg NEB RTBID #20 vial Home Medications: Famotidine [Pepcid 20 mg Tablet] 20 mg PO DAILY 07/23/19 Furosemide [Lasix 20 mg Tablet] 20 mg PO DAILY 07/23/19 Potassium Chloride [Klor-Con M10] 10 meq PO DAILY 07/23/19 Levothyroxine Sodium [Synthroid 0.05 mg Tablet] 100 mcg PO Q6AM 08/17/19 Sertraline HCl [Zoloft 50 mg Tablet] 50 mg PO DAILY 08/17/19 Budesonide/Formoterol Fumarate [Symbicort HFA 160-4.5 mcg Inhaler 6 gm] 1 puff IH Q12 08/18/19 Acetaminophen [Tylenol 325 mg Tablet] 650 mg PO Q4HP PRN tablet 08/19/19 Acetylcysteine [Mucomist 20% Soln 800 mg/4 mL] 600 mg NEB RTBID #20 vial 08/19/19 Docusate Sodium [Colace 100 mg Capsule] 100 mg PO DAILY capsule 08/19/19 Guaifenesin [Mucinex Sr 600 mg Tablet.sa] 600 mg PO Q12 #14 tablet.sa 08/19/19 Guaifenesin/Codeine Phos [Robitussin-AC Liquid 5 ml Udcup] 5 ml PO QIDP PRN udc 08/19/19 Ipratropium/Albuterol Sulfate [Duoneb 3 ml Ampul] 3 ml NEB RTQ6 #120 vial.neb 08/19/19 Ipratropium/Albuterol Sulfate [Duoneb 3 ml Ampul] 3 ml NEB RTQID #120 08/19/19 Multivitamins W-Iron [Flintstones Chewable Multivit W/Fe Tab] 2 tab PO DAILY tab.chew 08/19/19 Prednisone [Deltasone 20 mg Tablet] 60 mg PO DAILY #12 tablet 08/19/19 Roflumilast [Daliresp 500 Mcg Tablet] 500 mcg PO DAILY #30 tablet 08/19/19 History of Present Illiness History of Present Illness: TRENTON MCCOY is a 74 year old female with a past medical history significant for CHF, CAD, [place], hypertension, atrial fibrillation, COPD, chronic respiratory failure, sleep apnea, DM 2, hypothyroidism, 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 difficile who is well-known to the hospitalist service. She presented to the emergency department today via EMS with complaint of 2 to 3 days of progressively worsening altered mental status with poor p.o. intake per family members. No family members were present at the time of my assessment. Evaluation in the emergency department revealed tachycardia (HR 117), Tachypnea (RR 25), hypoxia on baseline oxygen requirement, baseline anemia (hemoglobin 8.8), VBG PCO2 of 73 (near baseline) elevated bicarb (38) normal troponin, proBNP of 913, normal lactic acid, EKG showing sinus tachycardia, and benign chest x-ray. She is provided IV magnesium, Solu-Medrol, nebulizer treatments and placed on BiPAP. Is referred to the hospitalist service for admission and management of the above-stated complaints and findings. Hospital Course Hospital Course: The patient was admitted to [facility] on continuous cardiac telemetry. She was provided supplemental oxygen via nasal cannula and BiPAP support. She was supported with scheduled as needed nebulizer treatments, IV Solu-Medrol, Mucinex, Mucomyst nebs, and Daliresp. The patient's respiratory symptoms rapidly improved and within 12 hours she has returned to her baseline oxygen requirement. By the following morning her mentation is normal. She continued to have significant adventitious lung sounds and so was kept for an additional day of IV steroids. Today on exam, the patient is alert and oriented x4, with significantly improved lung sounds, and maintaining oxygen saturations on her baseline oxygen requirement. She is requesting to be discharged home. The patient's acute respiratory failure and altered mentation was likely due to a combination of COPD exacerbation and narcotic use. UDS was positive for opiates; of note, patient is not prescribed opiate medications. She is strongly advised to take only medications prescribed to her. The patient's other chronic medical conditions remained stable. She is discharged home in the care of family with home health services. She is advised to follow-up with her primary care provider within 1 week. Take medications only as prescribed. She is provided prescriptions for Daliresp, DuoNeb's, Mucomyst, Mucinex, and prednisone. She is instructed to return to the emergency department as needed for concerning symptoms. Physical Exam Vital Signs: Temp Pulse Resp BP Pulse Ox 98.2 F 92 20 124/70 100 08/19/19 07:25 08/19/19 08:24 08/19/19 08:24 08/19/19 07:25 08/19/19 08:24 Intake & Output 08/18/19 08/19/19 08/20/19 06:59 06:59 06:59 Intake Total 1300 5271 200 Output Total 800 Balance 1300 4471 200 Weight 76.9 kg 80.9 kg General appearance: PRESENT: no acute distress, cooperative, obese, well- developed, well-nourished Head exam: PRESENT: atraumatic, normocephalic Eye exam: PRESENT: conjunctiva pink, EOMI, PERRLA. ABSENT: scleral icterus Ear exam: PRESENT: normal external ear exam Mouth exam: PRESENT: moist, tongue midline Neck exam: ABSENT: carotid bruit, JVD, lymphadenopathy, thyromegaly Respiratory exam: PRESENT: prolonged expiratory phas, symmetrical, unlabored, wheezes - Scant expiratory wheeze, other - Baseline oxygen requirement. ABSENT: rales, rhonchi Cardiovascular exam: PRESENT: RRR, +S1, +S2. ABSENT: diastolic murmur, rubs, systolic murmur Pulses: PRESENT: normal dorsalis pedis pul Vascular exam: PRESENT: normal capillary refill GI/Abdominal exam: PRESENT: normal bowel sounds, soft. ABSENT: distended, guarding, mass, organolmegaly, rebound, tenderness Rectal exam: PRESENT: deferred Extremities exam: PRESENT: full ROM. ABSENT: calf tenderness, clubbing, pedal edema Neurological exam: PRESENT: alert, awake, oriented to person, oriented to place, oriented to time, oriented to situation, CN II-XII grossly intact. ABSENT: motor sensory deficit Psychiatric exam: PRESENT: appropriate affect, normal mood. ABSENT: homicidal ideation, suicidal ideation Skin exam: PRESENT: dry, intact, warm. ABSENT: cyanosis, rash Results Laboratory Results: WBC 9.0 10^3/uL (4.0-10.5) 08/19/19 06:14 RBC 2.39 10^6/uL (3.72-5.28) L 08/19/19 06:14 Hgb 8.0 g/dL (12.0-15.5) L 08/19/19 06:14 Hct 23.8 % (36.0-47.0) L 08/19/19 06:14 MCV 100 fl (80-97) H 08/19/19 06:14 MCH 33.5 pg (27.0-33.4) H 08/19/19 06:14 MCHC 33.6 g/dL (32.0-36.0) 08/19/19 06:14 RDW 16.2 % (11.5-14.0) H 08/19/19 06:14 Plt Count 274 10^3/uL (150-450) 08/19/19 06:14 Lymph % (Auto) 8.0 % (13-45) L 08/17/19 10:47 Howard % (Auto) 7.7 % (3-13) 08/17/19 10:47 Eos % (Auto) 1.4 % (0-6) 08/17/19 10:47 Baso % (Auto) 0.4 % (0-2) 08/17/19 10:47 Absolute Neuts (auto) 6.3 10^3/uL (1.7-8.2) 08/17/19 10:47 Absolute Lymphs (auto) 0.6 10^3/uL (0.5-4.7) 08/17/19 10:47 Absolute Monos (auto) 0.6 10^3/uL (0.1-1.4) 08/17/19 10:47 Absolute Eos (auto) 0.1 10^3/uL (0.0-0.6) 08/17/19 10:47 Absolute Basos (auto) 0.0 10^3/uL (0.0-0.2) 08/17/19 10:47 Seg Neutrophils % 82.5 % (42-78) H 08/17/19 10:47 PT 13.3 SEC (11.4-15.4) 08/17/19 10:47 INR 1.01 08/17/19 10:47 Carbonic Acid 1.72 mmol/L (1.05-1.35) H 08/17/19 17:55 HCO3/H2CO3 Ratio 20:1 08/17/19 17:55 ABG pH 7.42 (7.35-7.45) 08/17/19 17:55 ABG pCO2 57.1 mmHg (35-45) H 08/17/19 17:55 ABG pO2 103.2 mmHg (80-100) H 08/17/19 17:55 ABG HCO3 36.0 mmol/L (20-24) H 08/17/19 17:55 ABG Total CO2 37.7 mmol/L (21-25) H 08/17/19 17:55 ABG O2 Saturation 97.7 % (94-98) 08/17/19 17:55 ABG Base Excess 10.0 mmol/L 08/17/19 17:55 VBG pH 7.35 (7.30-7.42) 08/17/19 10:47 VBG pCO2 73.3 mmHg (35-63) H* 08/17/19 10:47 VBG HCO3 39.4 mmol/L (20-32) H 08/17/19 10:47 VBG Base Excess 10.3 mmol/L 08/17/19 10:47 FiO2 3L 08/17/19 17:55 Sodium 141.5 mmol/L (137-145) 08/19/19 06:14 Potassium 3.8 mmol/L (3.6-5.0) 08/19/19 06:14 Chloride 107 mmol/L (98-107) 08/19/19 06:14 Carbon Dioxide 29 mmol/L (22-30) 08/19/19 06:14 Anion Gap 6 (5-19) 08/19/19 06:14 BUN 15 mg/dL (7-20) 08/19/19 06:14 Creatinine 0.85 mg/dL (0.52-1.25) 08/19/19 06:14 Est GFR ( Amer) > 60 (>60) 08/19/19 06:14 Est GFR (MDRD) Non-Af > 60 (>60) 08/19/19 06:14 Glucose 132 mg/dL (75-110) H 08/19/19 06:14 POC Glucose 136 mg/dL (70-110) H 08/19/19 08:15 Lactic Acid 0.7 mmol/L (0.7-2.1) 08/17/19 16:45 Calcium 7.9 mg/dL (8.4-10.2) L 08/19/19 06:14 Total Bilirubin 0.3 mg/dL (0.2-1.3) 08/17/19 10:47 Direct Bilirubin 0.3 mg/dL (0.0-0.4) 08/17/19 10:47 Neonat Total Bilirubin Not Reportable 08/17/19 10:47 Neonat Direct Bilirubin Not Reportable 08/17/19 10:47 Neonat Indirect Bili Not Reportable 08/17/19 10:47 AST 20 U/L (14-36) 08/17/19 10:47 ALT 10 U/L (<35) 08/17/19 10:47 Alkaline Phosphatase 57 U/L (38-126) 08/17/19 10:47 Troponin I < 0.012 ng/mL 08/17/19 10:47 NT-Pro-B Natriuret Pep 913 pg/mL (<450) H 08/17/19 10:47 Total Protein 5.5 g/dL (6.3-8.2) L 08/17/19 10:47 Albumin 2.9 g/dL (3.5-5.0) L 08/17/19 10:47 TSH 4.71 uIU/mL (0.47-4.68) H 08/17/19 16:45 Urine Color YELLOW 08/17/19 11:30 Urine Appearance SLIGHTLY-CLOUDY 08/17/19 11:30 Urine pH 6.0 (5.0-9.0) 08/17/19 11:30 Ur Specific Humphrey 1.010 08/17/19 11:30 Urine Protein NEGATIVE mg/dL (NEGATIVE) 08/17/19 11:30 Urine Glucose (UA) NEGATIVE mg/dL (NEGATIVE) 08/17/19 11:30 Urine Ketones NEGATIVE mg/dL (NEGATIVE) 08/17/19 11:30 Urine Blood NEGATIVE (NEGATIVE) 08/17/19 11:30 Urine Nitrite (Reflex) NEGATIVE (NEGATIVE) 08/17/19 11:30 Urine Bilirubin NEGATIVE (NEGATIVE) 08/17/19 11:30 Urine Urobilinogen NEGATIVE mg/dL (<2.0) 08/17/19 11:30 Leukocyte Esterase Rfl TRACE (NEGATIVE) H 08/17/19 11:30 Urine RBC (Auto) 1 /HPF 08/17/19 11:30 Urine WBC (Reflex) 10 /HPF 08/17/19 11:30 Urine Mucus (Auto) RARE /LPF 08/17/19 11:30 Urine Ascorbic Acid NEGATIVE (NEGATIVE) 08/17/19 11:30 Urine Opiates Screen UNCONFIRMED POSITIVE 08/17/19 11:30 Urine Methadone Screen NEGATIVE 08/17/19 11:30 Ur Barbiturates Screen NEGATIVE 08/17/19 11:30 Ur Phencyclidine Scrn NEGATIVE 08/17/19 11:30 Ur Amphetamines Screen NEGATIVE 08/17/19 11:30 U Benzodiazepines Scrn NEGATIVE 08/17/19 11:30 Urine Cocaine Screen NEGATIVE 08/17/19 11:30 U Marijuana (THC) Screen NEGATIVE 08/17/19 11:30 08/17/19 08/17/19 10:47 10:47 Troponin I < 0.012 NT-Pro-B Natriuret Pep 913 H Impressions: Chest X-Ray 01/18/20 10:33 IMPRESSION: NO ACUTE RADIOGRAPHIC FINDING IN THE CHEST. Stroke Is this a Stroke Patient?: No Acute Heart Failure - Is this a Heart Failure Patient?: No
[2019-08-19] MEDS ORDERED: METHYLPREDNISOLONE INJ 40 MG/1 ML SDV IV SCH (14:00)
[2019-08-19 14:34] VITALS: BP 121/70
[2019-08-20] MEDS ORDERED: LEVOTHYROXINE SODIUM 0.05 MG TABLET PO SCH (06:00)
== END 2019-08-19 14:50 | disposition home health service (06) | DRG 190 ==
LOC: ER 09:53 → EH 16:05 → 3S 17:46
PROVIDERS: ADMIT Internal Medicine; ATTEND Internal Medicine
PROC: 5A09357 Assistance with Respiratory Ventilation, Less than 24 Consecutive Hours, Continuous Positive Airway Pressure (ICD-10-PCS; principal; 2019-08-17)
DX: J44.1 Chronic obstructive pulmonary disease with (acute) exacerbation (principal); J96.22 Acute and chronic respiratory failure with hypercapnia; I13.0 Hypertensive heart and chronic kidney disease with heart failure and stage 1 through stage 4 chronic kidney disease, or unspecified chronic kidney disease; G93.40 Encephalopathy, unspecified; I50.32 Chronic diastolic (congestive) heart failure; I11.0 Hypertensive heart disease with heart failure; F03.90 Unspecified dementia, unspecified severity, without behavioral disturbance, psychotic disturbance, mood disturbance, and anxiety; E11.22 Type 2 diabetes mellitus with diabetic chronic kidney disease; D64.9 Anemia, unspecified; E03.9 Hypothyroidism, unspecified; I25.10 Atherosclerotic heart disease of native coronary artery without angina pectoris; I48.91 Unspecified atrial fibrillation; G47.30 Sleep apnea, unspecified; K21.9 Gastro-esophageal reflux disease without esophagitis; M19.90 Unspecified osteoarthritis, unspecified site; M10.9 Gout, unspecified; F32.9 Major depressive disorder, single episode, unspecified; F19.90 Other psychoactive substance use, unspecified, uncomplicated; E66.9 Obesity, unspecified; N18.2 Chronic kidney disease, stage 2 (mild); Z79.52 Long term (current) use of systemic steroids; I25.2 Old myocardial infarction; Z85.118 Personal history of other malignant neoplasm of bronchus and lung; Z85.841 Personal history of malignant neoplasm of brain; Z85.3 Personal history of malignant neoplasm of breast; Z80.1 Family history of malignant neoplasm of trachea, bronchus and lung; Z83.6 Family history of other diseases of the respiratory system; Z88.1 Allergy status to other antibiotic agents; Z88.3 Allergy status to other anti-infective agents; Z88.0 Allergy status to penicillin
CPT/HCPCS: 36415; 36600; 51701; 71045; 80048; 80053; 80307; 81001; 82803; 82962; 83605; 83880; 84443; 84484; 85025; 85027; 85610; 87040; 87070; 87077; 87086; 87205; 93005; 93010; 94640; 94660; 96361; 96365; 96375; 99285; J1644; J1815; J2920; J2930; J3475; J7030; J7040; J7620; S0028

== ENCOUNTER 2019-09-19 08:37 | Inpatient (IN) | payer MEDICARE ==
--- NOTE | 2019-09-19 08:57 | ER Document Report ---
ED General - General Chief Complaint: Breathing Difficulty Stated Complaint: DIFFICULTY BREATHING Time Seen by Provider: 09/19/19 08:56 Primary Care Provider: ARASELI AGUILAR MD [Primary Care Provider] - Follow up as needed Notes: 74-year-old female with COPD on home oxygen 2 L presents with worsening shortness of breath cough congestion phlegm onset about 3 days, ran out of all her asthma medicine, and is brought in by EMS after 3 nebs and steroids. She said she was diagnosed with pneumonia yesterday at the office but did not get a flu swab and is not sure what she is taking. Multiple antibiotic allergies. Called to the bedside by nursing because the patient "sounded junky." TRAVEL OUTSIDE OF THE [place] IN LAST 30 DAYS: No - Related Data Allergies/Adverse Reactions: azithromycin Allergy (Verified 08/17/19 11:19) cephalexin Allergy (Verified 08/17/19 11:19) Penicillins Allergy (Verified 08/17/19 11:19) amoxicillin [Amoxicillin] Adverse Reaction (Verified 08/17/19 11:19) visual hallucinations erythromycin base [Erythromycin Base] Adverse Reaction (Verified 08/17/19 11:19) visual hallucinations Potassium Clavulanate * [From Augmentin] Adverse Reaction (Verified 08/17/19 11:19) visual hallucinations Past Medical History - Social History Smoking Status: Former Smoker Family History: Reviewed & Not Pertinent, COPD, Malignancy - Lung cancer - Past Medical History Cardiac Medical History: Reports: Hx Atrial Fibrillation, Hx Congestive Heart Failure, Hx Coronary Artery Disease, Hx Heart Attack, Hx Hypertension Denies: Hx DVT, Hx Hypercholesterolemia, Hx Pulmonary Embolism Pulmonary Medical History: Reports: Hx Asthma, Hx Bronchitis, Hx COPD, Hx Pneumonia, Hx Respiratory Failure - Chronic respiratory failure, Hx Sleep Apnea Denies: Hx Tuberculosis Neurological Medical History: Denies: Hx Seizures, Hx Parkinson's Disease Endocrine Medical History: Reports: Hx Diabetes Mellitus Type 2, Hx Hypothyroidism. 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 Denies: Hx Cir rhosis, Hx Hepatitis, Hx Ulcer Musculoskeletal Medical History: Reports Hx Arthritis, Reports Hx Gout, Denies Hx Multiple Sclerosis, Reports Hx Musculoskeletal Deformity, Reports Hx Musculoskeletal Trauma Skin Medical History: Denies Hx Eczema, Denies Hx Psoriasis Psychiatric Medical History: Reports: Hx Dementia, Hx Depression Denies: Hx Bipolar Disorder, Hx Schizophrenia Infectious Medical History: Reports: Hx C-Diff. Denies: Hx Hepatitis Past Surgical History: Reports: Hx Cholecystectomy, Hx Orthopedic Surgery - Foot surgery, Other - Bilateral cataract surgery - Immunizations Immunizations up to date: Yes Hx Diphtheria, Pertussis, Tetanus Vaccination: Yes Hx Pneumococcal Vaccination: 08/30/12 Review of Systems - Review of Systems Notes: REVIEW OF SYSTEMS GEN: Denies fever, chills, weight loss ENT: Denies sore throat, nasal discharge, ear pain EYES: Denies blurry vision, eye pain, discharge CV: Chest pressure with wheezing a RESP: See HPI GI: Denies abdominal pain, nausea, vomiting, diarrhea MSK: Denies joint pain/swelling, edema, SKIN: Denies rash, skin lesions LYMPH: Denies swollen glands/lymph nodes NEURO: Denies headache, focal weakness or numbness, dizziness PSYCH: Denies depression, suicidal or homicidal ideation PHYSICAL EXAMINATION General: Obese deconditioned and ill-appearing Head: Atraumatic, normocephalic ENT: Mouth normal, oropharynx moist, no exudates or tonsillar enlargement Eyes: Conjunctiva normal, pupils equal, lids normal Neck: No JVD, supple, no guarding CVS: Normal rate, regular rhythm, no murmurs Resp: Phasic wheezing, tachypnea with mild distress, speaks in 3-4 word sentences GI: Nondistended, soft, no tenderness to palpation, no rebound or guarding Ext: No deformities, no edema, normal range of motion in upper and lower ext Back: No CVA or midline TTP Skin: Senile purpura throughout Lymphatic: No lymphadeopathy noted Neuro: Awake, alert. Face symmetric. GCS 15. Physical Exam - Vital signs Vitals: Pulse Ox 98 09/19/19 08:44 Course - Re-evaluation Re-evalutation: 09/19/19 10:25 Patient presents with shortness of breath gurgly breath sounds history of both CHF and COPD, and possible recent pneumonia diagnosis Chronic hypoxic respiratory failure on oxygen presents with shortness of breath. She was placed on BiPAP for comfort initially while we sorted her out. Differential includes pneumonia, flu, heart failure Her x-ray shows no infiltrate. Her labs do show some abnormalities, and her blood gas shows hypercapnia. At some point she became hypotensive and hypoxic on BiPAP, so she was removed by the nurse but I went to reassess her and she is looking a bit encephalopathic with some nystagmus. I fear that we increased her FiO2 a little bit too high and her respiratory drive decreased. Keep her on 2 L now, within plan on giving some albumin for intravascular volume followed by levo fed for pressure support and placed back on BiPAP to blow off her CO2 Discussed with Dr. Veras who agrees with the above plan Does not need diuresis or antibiotics at this time. To ICU. 09/19/19 11:33 - Vital Signs Vital signs: Temp Pulse Resp BP Pulse Ox 13 98/59 L 100 09/19/19 11:15 09/19/19 11:15 09/19/19 11:15 - Laboratory Result Diagrams: 09/19/19 08:10 09/19/19 08:10 Laboratory results interpreted by me: 09/19/19 09/19/19 09/19/19 08:10 08:10 08:10 RBC 2.68 L Hgb 8.7 L Hct 26.5 L MCV 99 H RDW 16.6 H Lymph % (Auto) 10.0 L Carbonic Acid ABG pH ABG pCO2 ABG pO2 ABG HCO3 ABG Total CO2 ABG O2 Saturation Carbon Dioxide 36 H Anion Gap 3 L Glucose 171 H Calcium 7.9 L NT-Pro-B Natriuret Pep 1050 H Total Protein 5.6 L Albumin 2.9 L 09/19/19 10:15 RBC Hgb Hct MCV RDW Lymph % (Auto) Carbonic Acid 2.01 H ABG pH 7.34 L ABG pCO2 66.9 H ABG pO2 51.0 L ABG HCO3 35.4 H ABG Total CO2 37.5 H ABG O2 Saturation 82.6 L Carbon Dioxide Anion Gap Glucose Calcium NT-Pro-B Natriuret Pep Total Protein Albumin Critical Care Note - Critical Care Note Total time excluding time spent on procedures (mins): 32 Comments: The above patient is critically ill. Not including procedures, but including direct re-evaluations, speaking with patient and/or consultants, interpreting results, and documenting, I spent the total amount of minute listed listed above on critical care time Discharge - Discharge Clinical Impression: Acute respiratory failure with hypercapnia Condition: Critical Disposition: ADMITTED INPATIENT Admitting Provider: Mary Jo (Radiology Nurse) Unit Admitted: ICU Referrals: ARASELI AGUILAR MD [Primary Care Provider] - Follow up as needed
[2019-09-19 09:04] LABS: ABSOLUTE EOSINOPHILS # (AUTO) 0.3 10^3/uL (0.0-0.6); ABSOLUTE LYMPHOCYTES (AUTO) 0.9 10^3/uL (0.5-4.7); ABSOLUTE MONOCYTES (AUTO) 0.9 10^3/uL (0.1-1.4); BASOPHILS % (AUTO) 0.2 % (0-2); EOSINOPHILS % (AUTO) 3.5 % (0-6); HEMATOCRIT 26.5 % (36.0-47.0); HEMOGLOBIN 8.7 g/dL (12.0-15.5); MEAN CORPUSCULAR HEMOGLOBIN 32.3 pg (27.0-33.4); MEAN CORPUSCULAR HGB CONC 32.7 g/dL (32.0-36.0); MEAN CORPUSCULAR VOLUME 99 fl (80-97); MONOCYTES % (AUTO) 9.7 % (3-13); PLATELET COUNT 286 10^3/uL (150-450); RED BLOOD COUNT 2.68 10^6/uL (3.72-5.28); RED CELL DISTRIBUTION WIDTH 16.6 % (11.5-14.0); SEGMENTED NEUTROPHILS % (AUTO) 76.6 % (42-78); TOTAL CELLS COUNTED % (AUTO) 100 %; WHITE BLOOD COUNT 9.1 10^3/uL (4.0-10.5)
[2019-09-19 09:22] LABS: ALBUMIN 2.9 g/dL (3.5-5.0); ALKALINE PHOSPHATASE 58 U/L (38-126); ASPARTATE AMINO TRANSFERASE 26 U/L (14-36); BILIRUBIN,DIRECT 0.1 mg/dL (0.0-0.4); BILIRUBIN,TOTAL 0.4 mg/dL (0.2-1.3); BLOOD UREA NITROGEN 13 mg/dL (7-20); CALCIUM 7.9 mg/dL (8.4-10.2); CARBON DIOXIDE 36 mmol/L (22-30); CHLORIDE 100 mmol/L (98-107); GLUCOSE 171 mg/dL (75-110); POTASSIUM 4.5 mmol/L (3.6-5.0); TOTAL PROTEIN 5.6 g/dL (6.3-8.2)
[2019-09-19 09:27] LABS: ANION GAP 3 (5-19)
[2019-09-19 09:47] LABS: TROPONIN I 0.017 ng/mL
[2019-09-19] MEDS: IPRATROPIUM/ALBUTEROL 0.5-2.5 MG/3 ML AMPUL NEB ONE ×2 (10:20→10:48)
[2019-09-19] MEDS ORDERED: DEXTROSE 5%-WATER 250 ML with NOREPINEPHRINE BITARTRATE 4 MG IV PRN ×2 (10:23)
[2019-09-19] MEDS ORDERED: IPRATROPIUM/ALBUTEROL 0.5-2.5 MG/3 ML AMPUL NEB ONE ×2 (10:23→10:25)
--- NOTE | 2019-09-19 10:26 | RADIOLOGY REPORT (SQ) ---
EXAM DESCRIPTION: CHEST SINGLE VIEW COMPLETED DATE/TIME: 09/19/2019 9:59 am REASON FOR STUDY: Difficulty breathing COMPARISON: 08/17/2019 NUMBER OF VIEWS: One view. TECHNIQUE: Single frontal radiographic view of the chest acquired. LIMITATIONS: None. FINDINGS: LUNGS AND PLEURA: No opacities, masses or pneumothorax. No pleural effusion. MEDIASTINUM AND HILAR STRUCTURES: No masses. Contour normal. HEART AND VASCULAR STRUCTURES: Heart enlarged without failure. Normal vasculature. BONES: No acute findings. HARDWARE: None in the chest. OTHER: No other significant finding. IMPRESSION: HEART ENLARGED WITHOUT FAILURE. NO OTHER SIGNIFICANT RADIOGRAPHIC FINDING IN THE CHEST. TECHNICAL DOCUMENTATION: JOB ID: [id number] 2010 [employer]- All Rights Reserved Reading location - IP/workstation name: [email or web address]
[2019-09-19] MEDS ORDERED: ALBUMIN HUMAN 500 ML IV ONE (10:27)
[2019-09-19 10:40] LABS: ARTERIAL BLOOD BASE EXCESS 8.4 mmol/L; ARTERIAL BLOOD FIO2 3L; ARTERIAL BLOOD H2CO3 2.01 mmol/L (1.05-1.35); ARTERIAL BLOOD HCO3 35.4 mmol/L (20-24); ARTERIAL BLOOD O2 SATURATION 82.6 % (94-98); ARTERIAL BLOOD PCO2 66.9 mmHg (35-45); ARTERIAL BLOOD PH 7.34 (7.35-7.45); ARTERIAL BLOOD TOTAL CO2 37.5 mmol/L (21-25)
[2019-09-19 11:11] LABS: A TYPE INFLUENZA AG NEGATIVE (NEGATIVE); B INFLUENZA AG NEGATIVE (NEGATIVE)
--- NOTE | 2019-09-19 12:06 | PDOC CONSULTATION ---
Consultation Consult Date: 09/19/19 Attending physician:: HEIDY ACEVEDO Provider Consulted: DAVID MARTINEZ Consult reason:: Encephalopathy with respiratory failure History of Present Illness Admission Date/PCP: ARASELI AGUILAR MD Patient complains of: Cough and dyspnea for 2-3 days. 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 She presents with worsening shortness of breath and productive cough with congestion phlegm for 3 days. She has had waxing and waning confusion and lethargy but was able to endorse to the ED: "ran out of all her asthma medicine" Brought in by EMS after 3 vimal and steroids. She said she was diagnosed with pneumonia yesterday at the office but did not get a flu swab and is not sure what she is taking. Multiple antibiotic allergies. ED stafff called to the bedside by nursing because the patient "sounded junky." She was placed on BiPAP because of decrease in mental status. My initial evaluation she was difficult to arouse however after approximately 10 to 15 minutes was able to communicate on the BiPAP. She has difficulty communicating due to edentulous state and hearing. She endorses malaise. Unsure of fever. Very poor historian and difficult to ascertain ROS. She states she lives with about 7 individuals. Have attempted to contact family without success. Started on Bipap in ED, she developed transient hypotension which responded to fluids and discontinuation of the BiPAP. Now is mentating with a blood pressure above 100 and breathing more comfortably. Past Medical History Cardiac Medical History: Reports: Atrial Fibrillation, Congestive Heart Failure, Coronary Artery Disease, Myocardial Infarction, Hypertension Denies: DVT, Hyperlipidema, Pulmonary Embolism Pulmonary Medical History: Reports: Asthma, Bronchitis, Chronic Obstructive Pulmonary Disease (COPD), Pneumonia, Respiratory Failure - Chronic respiratory failure, Sleep Apnea Denies: Tuberculosis Neurological Medical History: Denies: Seizures Endocrine Medical History: Reports: Diabetes Mellitus Type 2, Hypothyroidism Denies: Diabetes Mellitus Type 1, Hyperthyroidism Renal/ Medical History: Denies: End Stage Renal Disease Malignancy Medical History: Reports: Brain Cancer - Lung cancer with brain metastases, Breast Cancer, 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 GI Medical History: Reports: Gastroesophageal Reflux Disease Denies: Cirrhosis, Hepatitis Musculoskeltal Medical History: Reports: Arthritis, Gout Skin Medical History: Denies: Eczema, Psoriasis Psychiatric Medical History: Reports: Dementia, Depression Denies: Bipolar Disorder Hematology: Reports: Anemia, Bleeding Tendencies Infectious Medical History: Reports: Clostridium Difficile Past Surgical History Past Surgical History: Reports: Cholecystectomy, Orthopedic Surgery - Foot surgery, Other - Bilateral cataract surgery Social History Smoking Status: Former Smoker Electronic Cigarette use?: No Frequency of Alcohol Use: None Hx Recreational Drug Use: No Drugs: None Hx Prescription Drug Abuse: No - Advance Directive Resuscitation Status: Full Code Surrogate healthcare decision maker:: Attempting to contact Family History Family History: Reviewed & Not Pertinent, COPD, Malignancy - Lung cancer Parental Family History Reviewed: Yes Children Family History Reviewed: No Sibling(s) Family History Reviewed.: No Medication/Allergy Home Medications: Famotidine [Pepcid 20 mg Tablet] 20 mg PO DAILY 07/23/19 Furosemide [Lasix 20 mg Tablet] 20 mg PO DAILY 07/23/19 Potassium Chloride [Klor-Con M10] 10 meq PO DAILY 07/23/19 Levothyroxine Sodium [Synthroid 0.05 mg Tablet] 100 mcg PO Q6AM 08/17/19 Sertraline HCl [Zoloft 50 mg Tablet] 50 mg PO DAILY 08/17/19 Budesonide/Formoterol Fumarate [Symbicort HFA 160-4.5 mcg Inhaler 6 gm] 1 puff IH Q12 08/18/19 Acetaminophen [Tylenol 325 mg Tablet] 650 mg PO Q4HP PRN tablet 08/19/19 Acetylcysteine [Mucomist 20% Soln 800 mg/4 mL] 600 mg NEB RTBID #20 vial 08/19/19 Docusate Sodium [Colace 100 mg Capsule] 100 mg PO DAILY capsule 08/19/19 Guaifenesin [Mucinex Sr 600 mg Tablet.sa] 600 mg PO Q12 #14 tablet.sa 08/19/19 Guaifenesin/Codeine Phos [Robitussin-AC Liquid 5 ml Udcup] 5 ml PO QIDP PRN udc 08/19/19 Ipratropium/Albuterol Sulfate [Duoneb 3 ml Ampul] 3 ml NEB RTQ6 #120 vial.neb 08/19/19 Ipratropium/Albuterol Sulfate [Duoneb 3 ml Ampul] 3 ml NEB RTQID #120 08/19/19 Multivitamins W-Iron [Flintstones Chewable Multivit W/Fe Tab] 2 tab PO DAILY tab.chew 08/19/19 Prednisone [Deltasone 20 mg Tablet] 60 mg PO DAILY #12 tablet 08/19/19 Roflumilast [Daliresp 500 Mcg Tablet] 500 mcg PO DAILY #30 tablet 08/19/19 Allergies/Adverse Reactions: azithromycin Allergy (Verified 08/17/19 11:19) cephalexin Allergy (Verified 08/17/19 11:19) Penicillins Allergy (Verified 08/17/19 11:19) amoxicillin [Amoxicillin] Adverse Reaction (Verified 08/17/19 11:19) visual hallucinations erythromycin base [Erythromycin Base] Adverse Reaction (Verified 08/17/19 11:19) visual hallucinations Potassium Clavulanate * [From Augmentin] Adverse Reaction (Verified 08/17/19 11:19) visual hallucinations Review of Systems ROS unobtainable: Due to mental status All systems: as per PMH Physical Exam Vital Signs: Temp Pulse Resp BP Pulse Ox 23 H 159/100 H 100 09/19/19 11:30 09/19/19 11:30 09/19/19 11:30 Intake & Output 09/18/19 09/19/19 09/20/19 06:59 06:59 06:59 Weight 70.4 kg Physical Exam: Elderly, chronically ill-appearing 74-year-old female no acute distress. Originally difficult to arouse but now fully awake and alert somewhat oriented and appears at baseline based on previous examinations General appearance: PRESENT: no acute distress, disheveled, hard of hearing, morbidly obese, well-nourished Head exam: PRESENT: atraumatic, normocephalic Eye exam: PRESENT: conjunctiva pink, EOMI, PERRLA. ABSENT: conjunctival injection, nystagmus, scleral icterus Mouth exam: PRESENT: moist, neck supple, tongue midline Teeth exam: PRESENT: edentulous Neck exam: ABSENT: carotid bruit, JVD, lymphadenopathy, thyromegaly Respiratory exam: PRESENT: decreased breath sounds - At bases, unlabored, wheezes. ABSENT: accessory muscle use, tachypnea Cardiovascular exam: PRESENT: tachycardia Pulses: PRESENT: +1 pedal pulses bilateral Vascular exam: PRESENT: normal capillary refill. ABSENT: pallor GI/Abdominal exam: PRESENT: normal bowel sounds, soft. ABSENT: ascites, disten ded, guarding, mass, organolmegaly, rebound, tenderness Rectal exam: PRESENT: deferred Gentrourinary exam: PRESENT: indwelling catheter Extremities exam: ABSENT: joint swelling Musculoskeletal exam: ABSENT: deformity, dislocation Neurological exam: PRESENT: alert, awake, oriented to person, oriented to place, CN II-XII grossly intact. ABSENT: oriented to time, oriented to situation, motor sensory deficit Psychiatric exam: PRESENT: appropriate affect, normal mood Focused psych exam: ABSENT: pressured speech, psychomotor agitation, restlessness Skin exam: PRESENT: dry, intact, warm. ABSENT: cyanosis, jaundice, mottled, rash Results Laboratory Results: 09/19/19 08:10 09/19/19 08:10 09/19/19 09/19/19 09/19/19 08:10 08:10 09:36 WBC 9.1 RBC 2.68 L Hgb 8.7 L Hct 26.5 L MCV 99 H MCH 32.3 MCHC 32.7 RDW 16.6 H Plt Count 286 Seg Neutrophils % 76.6 Carbonic Acid HCO3/H2CO3 Ratio ABG pH ABG pCO2 ABG pO2 ABG HCO3 ABG O2 Saturation ABG Base Excess FiO2 Sodium 138.9 Potassium 4.5 Chloride 100 Carbon Dioxide 36 H Anion Gap 3 L BUN 13 Creatinine 0.70 Est GFR ( Amer) > 60 Glucose 171 H Lactic Acid 1.1 Calcium 7.9 L Total Bilirubin 0.4 AST 26 Alkaline Phosphatase 58 Total Protein 5.6 L Albumin 2.9 L 09/19/19 10:15 WBC RBC Hgb Hct MCV MCH MCHC RDW Plt Count Seg Neutrophils % Carbonic Acid 2.01 H HCO3/H2CO3 Ratio 17:1 ABG pH 7.34 L ABG pCO2 66.9 H ABG pO2 51.0 L ABG HCO3 35.4 H ABG O2 Saturation 82.6 L ABG Base Excess 8.4 FiO2 3L Sodium Potassium Chloride Carbon Dioxide Anion Gap BUN Creatinine Est GFR ( Amer) Glucose Lactic Acid Calcium Total Bilirubin AST Alkaline Phosphatase Total Protein Albumin 09/19/19 08:10 Troponin I 0.017 NT-Pro-B Natriuret Pep 1050 H Impressions: Chest X-Ray 09/19/19 08:44 IMPRESSION: HEART ENLARGED WITHOUT FAILURE. NO OTHER SIGNIFICANT RADIOGRAPHIC FINDING IN THE CHEST. Assessment & Plan - Diagnosis (1) Acute and chronic respiratory failure with hypercapnia Is this a current diagnosis for this admission?: Yes (2) Failure to thrive syndrome, adult Is this a current diagnosis for this admission?: Yes (3) Acute metabolic encephalopathy Is this a current diagnosis for this admission?: Yes (4) Hypotension Qualifiers: Hypotension type: hypotension due to hypovolemia Qualified Code(s): I95.89 - Other hypotension; E86.1 - Hypovolemia Is this a current diagnosis for this admission?: Yes (5) BiPAP (biphasic positive airway pressure) dependence Is this a current diagnosis for this admission?: Yes (6) Morbid obesity Is this a current diagnosis for this admission?: Yes - Time Time Spent: 50 to 70 Minutes Total Critical Time (Minutes): 60 Medications reviewed and adjusted accordingly: Yes Anticipated discharge: Acute Rehab Within: within 36 hours - Inpatient Certification Based on my medical assessment, after consideration of the patient's comorbidities, presenting symptoms, or acuity I expect that the services needed warrant INPATIENT care.: Yes I certify that my determination is in accordance with my understanding of Medicare's requirements for reasonable and necessary INPATIENT services [42 CFR 412.3e].: Yes Medical Necessity: Need Close Monitoring Due to Risk of Patient Decompensation, Need For IV Fluids, Need For Continuous Telemetry Monitoring, Need for Nebulizer Therapy and Monitoring of Response - Plan Summary Plan Summary: Mrs. Mccoy is a 74-year-old female with significant multiple comorbidities who has at least bimonthly admissions for similar complaints. Her original presentation has now improved and she has responded to treatment in the emergency room. We have asked for her to have albumin in consideration for hypovolemic state as noted by lowering of blood pressure while on BiPAP. She is now mentating and able to communicate. I did attempt to reach out to family to discuss her failure to thrive in her overall status. We would recommend palliative care consult in consideration given her complex illness, multiple admissions and inability to care for her self. Was asked to evaluate her for critical care ICU admission. At this point given her improvement in the emergency room she does not need or require the ICU however she does need to be placed in an IMCU status. Be happy to reevaluate if her situation worsens. Would recommend urine drug screen, since she has had previous history of narcotics found in her urine. We have asked for TSH and ammonia level to assure that there is no other metabolic processes complicating her mental status. Spoken to the hospitalist service and will follow if there is a need. Time spent 60 minutes with complex care and coordination of care.
[2019-09-19 12:10] LABS: APPEARANCE,URINE CLOUDY; BILIRUBIN,URINE NEGATIVE (NEGATIVE); COLOR,URINE YELLOW; GLUCOSE, URINE NEGATIVE (NEGATIVE); KETONES,URINE NEGATIVE (NEGATIVE); LEUKOCYTE ESTERASE,URINE LARGE (NEGATIVE); NITRITE,URINE POSITIVE (NEGATIVE); PROTEIN,URINE 30 mg/dL (NEGATIVE); URINE SPECIFIC GRAVITY 1.011; UROBILINOGEN,URINE NEGATIVE mg/dL (<2.0)
[2019-09-19] MEDS ORDERED: ONDANSETRON HCL INJ/PF 4 MG/2 ML SDV IV PRN (12:34)
[2019-09-19] MEDS ORDERED: ONDANSETRON 4 MG TAB.RAPDIS PO PRN (12:34)
[2019-09-19] MEDS ORDERED: MAG HYDROX/AL HYDROX/SIMETH SUSP 30 ML UDCUP PO PRN (12:34)
[2019-09-19 12:40] LABS: URINE AMPHETAMINES SCREEN NEGATIVE; URINE BARBITURATES SCREEN NEGATIVE; URINE BENZODIAZEPINES SCREEN NEGATIVE; URINE COCAINE SCREEN NEGATIVE; URINE MARIJUANA (THC) SCREEN NEGATIVE; URINE METHADONE SCREEN NEGATIVE; URINE PHENCYCLIDINE SCREEN NEGATIVE
--- NOTE | 2019-09-19 13:06 | PDOC H&P ---
History of Present Illness Admission Date/PCP: 09/19/19 11:46 ARASELI AGUILAR MD History of Present Illness: TRENTON MCCOY is a 74 year old female who has had multiple hospital admissions recently for the same problem which is shortness of breath, cough COPD exacerbation, hypoxia. Patient was initially evaluated by alteration hand however he does not feel like she meets ICU criteria, I agree and will put the patient on IMCU. Chest x-ray shows no sign of active acute infiltrate, the past patient has had CT scans of the chest which usually has just showed pulmonary fibrosis and COPD changes. There is also notation that the patient has not been taking her medications properly. The alteration hand suggested that we talk to the family about palliative care and I think that would be a good idea as well Past Medical History Cardiac Medical History: Reports: Atrial Fibrillation, Congestive Heart Failure, Coronary Artery Disease, Myocardial Infarction, Hypertension Denies: DVT, Hyperlipidema, Pulmonary Embolism Pulmonary Medical History: Reports: Asthma, Bronchitis, Chronic Obstructive Pulmonary Disease (COPD), Pneumonia, Respiratory Failure - Chronic respiratory failure, Sleep Apnea Denies: Tuberculosis Neurological Medical History: Denies: Seizures Endocrine Medical History: Reports: Diabetes Mellitus Type 2, Hypothyroidism Denies: Diabetes Mellitus Type 1, Hyperthyroidism Renal/ Medical History: Denies: End Stage Renal Disease Malignancy Medical History: Reports: Brain Cancer - Lung cancer with brain metastases, Breast Cancer, 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 GI Medical History: Reports: Gastroesophageal Reflux Disease Denies: Cirrhosis, Hepatitis Musculoskeltal Medical History: Reports: Arthritis, Gout Skin Medical History: Denies: Eczema, Psoriasis Psychiatric Medical History: Reports: Dementia, Depression Denies: Bipolar Disorder Hematology: Reports: Anemia, Bleeding Tendencies Infectious Medical History: Reports: Clostridium Difficile Past Surgical History Past Surgical History: Reports: Cholecystectomy, Orthopedic Surgery - Foot surgery, Other - Bilateral cataract surgery Social History Smoking Status: Former Smoker Electronic Cigarette use?: No Frequency of Alcohol Use: None Hx Recreational Drug Use: No Drugs: None Hx Prescription Drug Abuse: No - Advance Directive Resuscitation Status: Full Code Family History Family History: Reviewed & Not Pertinent, COPD, Malignancy - Lung cancer Parental Family History Reviewed: No Children Family History Reviewed: No Sibling(s) Family History Reviewed.: No Medication/Allergy Home Medications: Famotidine [Pepcid 20 mg Tablet] 20 mg PO DAILY 07/23/19 Furosemide [Lasix 20 mg Tablet] 20 mg PO DAILY 07/23/19 Potassium Chloride [Klor-Con M10] 10 meq PO DAILY 07/23/19 Levothyroxine Sodium [Synthroid 0.05 mg Tablet] 100 mcg PO Q6AM 08/17/19 Sertraline HCl [Zoloft 50 mg Tablet] 50 mg PO DAILY 08/17/19 Budesonide/Formoterol Fumarate [Symbicort HFA 160-4.5 mcg Inhaler 6 gm] 1 puff IH Q12 08/18/19 Acetaminophen [Tylenol 325 mg Tablet] 650 mg PO Q4HP PRN tablet 08/19/19 Acetylcysteine [Mucomist 20% Soln 800 mg/4 mL] 600 mg NEB RTBID #20 vial 08/19/19 Docusate Sodium [Colace 100 mg Capsule] 100 mg PO DAILY capsule 08/19/19 Guaifenesin [Mucinex Sr 600 mg Tablet.sa] 600 mg PO Q12 #14 tablet.sa 08/19/19 Guaifenesin/Codeine Phos [Robitussin-AC Liquid 5 ml Udcup] 5 ml PO QIDP PRN udc 08/19/19 Ipratropium/Albuterol Sulfate [Duoneb 3 ml Ampul] 3 ml [facility] RTQ6 #120 vial.neb 08/19/19 Ipratropium/Albuterol Sulfate [Duoneb 3 ml Ampul] 3 ml [facility] RTQID #120 08/19/19 Multivitamins W-Iron [Flintstones Chewable Multivit W/Fe Tab] 2 tab PO DAILY tab.chew 08/19/19 Prednisone [Deltasone 20 mg Tablet] 60 mg PO DAILY #12 tablet 08/19/19 Roflumilast [Daliresp 500 Mcg Tablet] 500 mcg PO DAILY #30 tablet 08/19/19 Allergies/Adverse Reactions: azithromycin Allergy (Verified 08/17/19 11:19) cephalexin Allergy (Verified 08/17/19 11:19) Penicillins Allergy (Verified 08/17/19 11:19) amoxicillin [Amoxicillin] Adverse Reaction (Verified 08/17/19 11:19) visual hallucinations erythromycin base [Erythromycin Base] Adverse Reaction (Verified 08/17/19 11:19) visual hallucinations Potassium Clavulanate * [From Augmentin] Adverse Reaction (Verified 08/17/19 11:19) visual hallucinations Review of Systems Constitutional: PRESENT: fatigue, weakness. ABSENT: chills, fever(s), headache(s), weight gain, weight loss Cardiovascular: PRESENT: dyspnea on exertion Respiratory: PRESENT: cough, dyspnea Neurological: ABSENT: abnormal gait, abnormal speech, confusion, dizziness, focal weakness, syncope Psychiatric: ABSENT: anxiety, depression, homidical ideation, suicidal ideation Physical Exam Vital Signs: Temp Pulse Resp BP Pulse Ox 19 102/59 L 97 09/19/19 12:30 09/19/19 12:30 09/19/19 12:30 Intake & Output 09/18/19 09/19/19 09/20/19 06:59 06:59 06:59 Weight 70.4 kg General appearance: PRESENT: no acute distress, other - Patient is resting comfortably on BiPAP Respiratory exam: PRESENT: rhonchi, wheezes - Both inspiratory and expiratory Cardiovascular exam: PRESENT: RRR. ABSENT: diastolic murmur, rubs, systolic murmur Neurological exam: PRESENT: alert, awake, oriented to person, oriented to place, oriented to time, oriented to situation, CN II-XII grossly intact. ABSENT: motor sensory deficit Psychiatric exam: PRESENT: depressed. ABSENT: homicidal ideation, suicidal ideation Results Laboratory Results: 09/19/19 08:10 09/19/19 08:10 09/19/19 09/19/19 09/19/19 08:10 08:10 08:10 WBC 9.1 RBC 2.68 L Hgb 8.7 L Hct 26.5 L MCV 99 H MCH 32.3 MCHC 32.7 RDW 16.6 H Plt Count 286 Seg Neutrophils % 76.6 Carbonic Acid HCO3/H2CO3 Ratio ABG pH ABG pCO2 ABG pO2 ABG HCO3 ABG O2 Saturation ABG Base Excess FiO2 Sodium 138.9 Potassium 4.5 Chloride 100 Carbon Dioxide 36 H Anion Gap 3 L BUN 13 Creatinine 0.70 Est GFR ( Amer) > 60 Glucose 171 H Lactic Acid Calcium 7.9 L Total Bilirubin 0.4 AST 26 Alkaline Phosphatase 58 Ammonia Total Protein 5.6 L Albumin 2.9 L TSH 4.15 Urine Color Urine Appearance Urine pH Ur Specific [place] Urine Protein Urine Glucose (UA) Urine Ketones Urine Blood Urine Nitrite Ur Leukocyte Esterase Urine WBC (Auto) Urine RBC (Auto) 09/19/19 09/19/19 09/19/19 09:36 10:15 11:45 WBC RBC Hgb Hct MCV MCH MCHC RDW Plt Count Seg Neutrophils % Carbonic Acid 2.01 H HCO3/H2CO3 Ratio 17:1 ABG pH 7.34 L ABG pCO2 66.9 H ABG pO2 51.0 L ABG HCO3 35.4 H ABG O2 Saturation 82.6 L ABG Base Excess 8.4 FiO2 3L Sodium Potassium Chloride Carbon Dioxide Anion Gap BUN Creatinine Est GFR ( Amer) Glucose Lactic Acid 1.1 Calcium Total Bilirubin AST Alkaline Phosphatase Ammonia Total Protein Albumin TSH Urine Color YELLOW Urine Appearance CLOUDY Urine pH 6.0 Ur Specific [place] 1.011 Urine Protein 30 H Urine Glucose (UA) NEGATIVE Urine Ketones NEGATIVE Urine Blood SMALL H Urine Nitrite POSITIVE H Ur Leukocyte Esterase LARGE H Urine WBC (Auto) >182 Urine RBC (Auto) 11 09/19/19 11:54 WBC RBC Hgb Hct MCV MCH MCHC RDW Plt Count Seg Neutrophils % Carbonic Acid HCO3/H2CO3 Ratio ABG pH ABG pCO2 ABG pO2 ABG HCO3 ABG O2 Saturation ABG Base Excess FiO2 Sodium Potassium Chloride Carbon Dioxide Anion Gap BUN Creatinine Est GFR ( Amer) Glucose Lactic Acid Calcium Total Bilirubin AST Alkaline Phosphatase Ammonia < 8.7 L Total Protein Albumin TSH Urine Color Urine Appearance Urine pH Ur Specific [place] Urine Protein Urine Glucose (UA) Urine Ketones Urine Blood Urine Nitrite Ur Leukocyte Esterase Urine WBC (Auto) Urine RBC (Auto) 09/19/19 08:10 Troponin I 0.017 NT-Pro-B Natriuret Pep 1050 H Impressions: Chest X-Ray 09/19/19 08:44 IMPRESSION: HEART ENLARGED WITHOUT FAILURE. NO OTHER SIGNIFICANT RADIOGRAPHIC FINDING IN THE CHEST. Assessment and Plan - Diagnosis (1) Failure to thrive syndrome, adult Is this a current diagnosis for this admission?: Yes (2) Morbid obesity Is this a current diagnosis for this admission?: Yes (3) Acute and chronic respiratory failure Qualifiers: Respiratory failure complication: hypoxia and hypercapnia Qualified Code(s): J96.21 - Acute and chronic respiratory failure with hypoxia; J96.22 - Acute and chronic respiratory failure with hypercapnia Is this a current diagnosis for this admission?: Yes (4) COPD exacerbation Is this a current diagnosis for this admission?: Yes (5) Chronic anemia Is this a current diagnosis for this admission?: Yes (6) Coronary artery disease Qualifiers: Coronary Disease-Associated Artery/Lesion type: [place] artery [place] vs. transplanted heart: [place] heart Associated angina: without angina Qualified Code(s): I25.10 - Atherosclerotic heart disease of [place] coronary artery without angina pectoris Is this a current diagnosis for this admission?: Yes (7) Debility and deconditioning Is this a current diagnosis for this admission?: Yes (8) Dementia Qualifiers: Dementia type: unspecified type Dementia behavioral disturbance: without behavioral disturbance Qualified Code(s): F03.90 - Unspecified dementia without behavioral disturbance Is this a current diagnosis for this admission?: Yes (9) Hypothyroidism Qualifiers: Hypothyroidism type: acquired Qualified Code(s): E03.9 - Hypothyroidism, unspecified Is this a current diagnosis for this admission?: Yes - Plan Summary Summary: 09/19/2019 Patient is admitted for her routine complaint of increased shortness of breath, COPD exacerbation,. Chest x-ray shows no sign of obvious failure or pneumonia. Treat patients with IV Solu-Medrol, pulmonary toiletry and gentle hydration Will talk to family about palliative care consult Patient was seen by the alteration hand however I agree that patient does not need to be in ICU at this time. Patient appears to be at her typical baseline for admission to the hospital - Time Time Spent with patient: 35 or more minutes
[2019-09-19 14:03] LABS: INTERNATIONAL RATION (INR) 1.01; PROTHROMBIN TIME 13.3 SEC (11.4-15.4)
[2019-09-19] MEDS: IPRATROPIUM/ALBUTEROL 0.5-2.5 MG/3 ML AMPUL NEB SCH ×2 (15:44→20:30)
--- NOTE | 2019-09-19 21:21 | EKG REPORT ---
SEVERITY:- ABNORMAL ECG - SINUS TACHYCARDIA RIGHT BUNDLE BRANCH BLOCK : Confirmed by: Mercedes Solomon 19-Sep-2019 21:20:12
[2019-09-19] MEDS: FAMOTIDINE 20 MG TABLET PO SCH (22:53)
[2019-09-19] MEDS: METHYLPREDNISOLONE INJ 40 MG/1 ML SDV IV SCH (22:53)
[2019-09-20] MEDS: NORMAL SALINE 1000 ML 1,000 ML IV PRN ×2 (01:57→17:30)
--- NOTE | 2019-09-20 03:10 | Progress Note ---
Provider Note Provider Note: Critical care note: 09/20/2019 Critical care onset time: 01:44 Critical care issue: Positive blood cultures Patient was seen at the request of her nurse because her blood culture reports have come back positive for methicillin resistant gram-positive cocci. On my evaluation the patient she was noted to be calm and comfortable with no acute complaints. I explained why I was checking her and the nature of the problem as well as my recommended solution of antibiotic therapy. We discussed this in depth in detail and the patient seemed to be happy with the decision to treat. Chest shows wheezes to auscultation and are equal bilaterally on BiPAP respiratory support. Heart showed a regular rate and rhythm no murmurs clicks gallops or rubs. Abdomen soft with bowel sounds present all 4 quadrants. Extremities revealed no clubbing cyanosis or edema. Since the culture is most likely MRSA the patient will be treated with Zyvox 600 mg IV every 12 hours beginning immediately. The antibiotic choice was made in view of the patient's numerous antibiotic allergies. Critical care end time: 03:09 Total critical care time: 19 minutes
[2019-09-20] MEDS ORDERED: LINEZOLID 600 MG/300 ML RTUPB IV ONE (03:35)
[2019-09-20] MEDS: LINEZOLID 600 MG/300 ML RTUPB IV SCH ×2 (05:15→17:30)
[2019-09-20 06:56] LABS: BLOOD UREA NITROGEN 14 mg/dL (7-20); CALCIUM 8.1 mg/dL (8.4-10.2); GLUCOSE 153 mg/dL (75-110); POTASSIUM 4.6 mmol/L (3.6-5.0)
[2019-09-20 07:01] LABS: CARBON DIOXIDE 38 mmol/L (22-30); CHLORIDE 100 mmol/L (98-107)
[2019-09-20 07:05] LABS: ANION GAP 2 (5-19); HEMATOCRIT 23.8 % (36.0-47.0); HEMOGLOBIN 8.2 g/dL (12.0-15.5); MEAN CORPUSCULAR HGB CONC 34.2 g/dL (32.0-36.0); MEAN CORPUSCULAR VOLUME 97 fl (80-97); PLATELET COUNT 261 10^3/uL (150-450); RED BLOOD COUNT 2.47 10^6/uL (3.72-5.28); RED CELL DISTRIBUTION WIDTH 15.9 % (11.5-14.0); WHITE BLOOD COUNT 7.4 10^3/uL (4.0-10.5)
[2019-09-20 07:17] LABS: CREATINE KINASE MB 1.48 ng/mL (<4.55); TROPONIN I 0.018 ng/mL
[2019-09-20 07:18] LABS: ABSOLUTE LYMPHOCYTES# (MANUAL) 0.2 10^3/uL (0.5-4.7); ABSOLUTE MONOCYTES # (MANUAL) 0.1 10^3/uL (0.1-1.4); ANISOCYTOSIS SLIGHT; BAND NEUTROPHILS % (MANUAL) 5 % (3-5); BASOPHILS % (MANUAL) 0 % (0-2); EOSINOPHILS % (MANUAL) 0 % (0-6); LYMPHOCYTES % (MANUAL) 3 % (13-45); MONOCYTES % (MANUAL) 2 % (3-13); SEGMENTED NEUTROPHILS % (MAN) 90 % (42-78); TOTAL CELLS COUNTED 100
[2019-09-20 07:19] LABS: OVALOCYTES SLIGHT
[2019-09-20 07:20] LABS: PLATELET COMMENT ADEQUATE; TEAR DROP CELLS SLIGHT
[2019-09-20] MEDS: IPRATROPIUM/ALBUTEROL 0.5-2.5 MG/3 ML AMPUL NEB SCH ×4 (08:24→20:27)
[2019-09-20] MEDS: METHYLPREDNISOLONE INJ 40 MG/1 ML SDV IV SCH ×2 (09:49→21:39)
[2019-09-20] MEDS: FUROSEMIDE INJ/PF 20 MG/2 ML SDV IV SCH (09:49)
[2019-09-20] MEDS: DOCUSATE SODIUM 100 MG CAPSULE PO SCH (09:49)
[2019-09-20] MEDS: FAMOTIDINE 20 MG TABLET PO SCH ×2 (09:49→21:39)
[2019-09-20] MEDS: ENOXAPARIN SODIUM INJ 40 MG/0.4 ML DISP.SYRIN SUBCUT SCH (09:49)
--- NOTE | 2019-09-20 10:46 | EKG REPORT ---
SEVERITY:- ABNORMAL ECG - SINUS TACHYCARDIA RBBB AND LAFB : Confirmed by: Mercedes Solomon 20-Sep-2019 10:44:41
--- NOTE | 2019-09-20 11:41 | PDOC PROGRESS REPORT ---
Subjective Progress Note for:: 09/20/19 Reason For Visit: ALTERED MENTAL STATUS, HYPOXIA,COPD EXACERBATION 09/20/2019 COPD exacerbation, hypoxia, noncompliance, dementia, chronic anemia Physical Exam Vital Signs: Temp Pulse Resp BP Pulse Ox 97.2 F 99 20 135/71 H 98 09/20/19 08:02 09/20/19 08:25 09/20/19 08:25 09/20/19 08:02 09/20/19 08:25 Intake & Output 09/19/19 09/20/19 09/21/19 06:59 06:59 06:59 Intake Total 1330 Output Total 600 Balance 730 Weight 77.7 kg General appearance: PRESENT: no acute distress, other - Sitting up in bed states she is feeling much better eating breakfast and speaking in full sentences Respiratory exam: PRESENT: rhonchi, wheezes Cardiovascular exam: PRESENT: RRR. ABSENT: diastolic murmur, rubs, systolic murmur Neurological exam: PRESENT: alert, awake, oriented to person, oriented to place, oriented to time, oriented to situation, CN II-XII grossly intact, other - Mentation appears normal. ABSENT: motor sensory deficit Psychiatric exam: PRESENT: appropriate affect, normal mood. ABSENT: homicidal ideation, suicidal ideation Results Laboratory Results: 09/20/19 05:12 09/20/19 05:12 09/19/19 09/19/19 09/19/19 08:10 11:45 11:54 WBC RBC Hgb Hct MCV MCH MCHC RDW Plt Count Seg Neutrophils % Sodium Potassium Chloride Carbon Dioxide Anion Gap BUN Creatinine Est GFR ( Amer) Glucose Calcium Magnesium Ammonia < 8.7 L TSH 4.15 Urine Color YELLOW Urine Appearance CLOUDY Urine pH 6.0 Ur Specific [place] 1.011 Urine Protein 30 H Urine Glucose (UA) NEGATIVE Urine Ketones NEGATIVE Urine Blood SMALL H Urine Nitrite POSITIVE H Ur Leukocyte Esterase LARGE H Urine WBC (Auto) >182 Urine RBC (Auto) 11 09/20/19 09/20/19 05:12 05:12 WBC 7.4 RBC 2.47 L Hgb 8.2 L Hct 23.8 L MCV 97 MCH 33.0 MCHC 34.2 RDW 15.9 H Plt Count 261 Seg Neutrophils % Not Reportable Sodium 140.3 Potassium 4.6 Chloride 100 Carbon Dioxide 38 H Anion Gap 2 L BUN 14 Creatinine 0.69 Est GFR ( Amer) > 60 Glucose 153 H Calcium 8.1 L Magnesium 2.3 Ammonia TSH Urine Color Urine Appearance Urine pH Ur Specific [place] Urine Protein Urine Glucose (UA) Urine Ketones Urine Blood Urine Nitrite Ur Leukocyte Esterase Urine WBC (Auto) Urine RBC (Auto) 09/19/19 09:04 Blood Blood Culture (PCR) - Final Enterococcus Species Staphylococcus Aureus 09/19/19 09/19/19 09/20/19 08:10 13:31 06:18 Creatine Kinase 21 L CK-MB (CK-2) Troponin I 0.017 NT-Pro-B Natriuret Pep 1050 H 1060 H 09/20/19 06:18 Creatine Kinase CK-MB (CK-2) 1.48 Troponin I 0.018 NT-Pro-B Natriuret Pep Impressions: Chest X-Ray 09/19/19 08:44 IMPRESSION: HEART ENLARGED WITHOUT FAILURE. NO OTHER SIGNIFICANT RADIOGRAPHIC FINDING IN THE CHEST. Assessment and Plan - Diagnosis (1) Failure to thrive syndrome, adult Is this a current diagnosis for this admission?: Yes (2) Morbid obesity Is this a current diagnosis for this admission?: Yes (3) Acute and chronic respiratory failure Qualifiers: Respiratory failure complication: hypoxia and hypercapnia Qualified Code(s): J96.21 - Acute and chronic respiratory failure with hypoxia; J96.22 - Acute and chronic respiratory failure with hypercapnia Is this a current diagnosis for this admission?: Yes (4) COPD exacerbation Is this a current diagnosis for this admission?: Yes (5) Chronic anemia Is this a current diagnosis for this admission?: Yes (6) Coronary artery disease Qualifiers: Coronary Disease-Associated Artery/Lesion type: [place] artery [place] vs. transplanted heart: [place] heart Associated angina: without angina Qualified Code(s): I25.10 - Atherosclerotic heart disease of [place] coronary artery without angina pectoris Is this a current diagnosis for this admission?: Yes (7) Debility and deconditioning Is this a current diagnosis for this admission?: Yes (8) Dementia Qualifiers: Dementia type: unspecified type Dementia behavioral disturbance: without behavioral disturbance Qualified Code(s): F03.90 - Unspecified dementia without behavioral disturbance Is this a current diagnosis for this admission?: Yes (9) Hypothyroidism Qualifiers: Hypothyroidism type: acquired Qualified Code(s): E03.9 - Hypothyroidism, unspecified Is this a current diagnosis for this admission?: Yes - Plan Summary Summary: 09/19/2019 Patient is admitted for her routine complaint of increased shortness of breath, COPD exacerbation,. Chest x-ray shows no sign of obvious failure or pneumonia. Treat patients with IV Solu-Medrol, pulmonary toiletry and gentle hydration Will talk to family about palliative care consult Patient was seen by the clubhouse manager however I agree that patient does not need to be in ICU at this time. Patient appears to be at her typical baseline for admission to the hospital 09/20/2019 Urine cultures growing out gram-negative rods blood cultures growing out gram- positive cocci, staph aureus, enterococcus disease Patient was placed on IV Zosyn last night due to her probable MRSA in blood cultures Due to patient's multiple drug allergies I am going to consult infectious disease, earlier rather than later. Clinically patient actually looks much improved today from her admission yesterday Temperature 97.2 pulse approximately 100 blood pressure 135/71 O2 sat 100% on 4 L, patient has been on room air as well WBCs are normal, electrolytes are grossly normal Continue as above - Time Time Spent with patient: 25-34 minutes
[2019-09-20 13:33] LABS: CREATINE KINASE MB 1.83 ng/mL (<4.55); TROPONIN I 0.03 ng/mL
--- NOTE | 2019-09-20 17:28 | Progress Note ---
Provider Note Provider Note: ID telephone/remote consultation note Asked by Pharmacy and patient's hospitalist to review chart. Pt not seen or ex amined. Ms. Diallo is a 74-year-old woman with PMH including AF, CHF, CAD, HTN, COPD with chronic hypoxic respiratory failure on home oxygen, DM type II, and history of stage small cell lung cancer. Her most recent preceding hospitalization was from 08/17-08/19/19 for altered mental status and acute respiratory failure secondary to narcotic use and COPD exacerbation. She returned to the ED and was admitted at [facility] a month later on 09/19/19 with c/o SOB and productive cough for 3 days with waxing and waning confusion and lethargy after running out of her "asthma medicine." The patient reported being diagnosed with pneumonia the day prior to presentation at an office visit but is also a poor historian. On exam, she was afebrile, obese, chronically ill-appearing, and had wheezing, tachypnea, rhonchi, prolonged expiratory phase, and mild respiratory distress. She was also noted to be edentulous, to have no cardiac murmurs, no rashes, only senile purpura. WBC count was normal. Blood gas showed some hypercapnea. CXR single view showed no acute pulmonary infiltrates. She required Bipap initially and has been back to supplemental O2 by nasal cannula since then. The patient had blood cultures drawn when she presented on 09/19, which have preliminarily been reported as showing GPCs in clusters on Gram stain with a PCR test positive for vancomycin susceptible Enterococcus species and MRSA. The second set of blood cultures from 09/19 are pending. The patient also has a sputum sample submitted to the lab, as well as a U/A showing pyuria and UCx preliminarily reported with growth of >100k cfu GNRs. The patient has multiple reported allergies, some with no documented reaction. She is currently on linezolid. Impression/Recommendations Polymicrobial growth from blood culture of Enterococcus species and MRSA - Typically true polymicrobial bacteremia has a source from the GI tract, less commonly the tract, or an infected line or IVDU as the source. None of these are readily apparent to me based on chart review for the patient. She came in with similar presentation to prior admissions with COPD exacerbation. Generally, Staph aureus in blood cultures should always be regarded as a true pathogen, however, and the standard of care treatment would involve IV vancomycin or IV daptomycin. The patient does not have an allergy to vancomycin. - Would start IV vancomycin, dosed with the assistance of a clinical pharmacist to achieve goal troughs of 15-20. - Linezolid can sometimes be an option to treat bacteremia with Gram positive organisms if a short course of therapy is all that is required since the risk for toxicities increases with longer durations of treatment. Right now, without a clearly defined source of infection and a clear sense for how long to treat the patient, the most reasonable course of action appears to me to be discontinuation of Zyvox and starting vancomycin instead. - Would get repeat BCx on 09/22 or sooner if she has fever - Suggest getting TTE - Continue to remain vigilant with history and physical exam for potential metastatic foci of infection (e.g. new or worsened back pain or joint pain with inflammation) that may require further workup and continue to evaluate the patient for likely portals of entry for the bacteremia Asymptomatic bacteriuria - if no classic irritative urinary sx have been endorsed by the patient such as dysuria, as notes have not mentioned to date, then the growth of GNRs in the urine culture represents colonization and would not require antibiotics. Bassam Garcia MD [facility] Infectious Diseases pager [phone]
[2019-09-20 20:03] LABS: CREATINE KINASE MB 1.66 ng/mL (<4.55); TROPONIN I 0.028 ng/mL
[2019-09-21] MEDS: LEVOTHYROXINE SODIUM 0.05 MG TABLET PO SCH (05:28)
[2019-09-21] MEDS: LINEZOLID 600 MG/300 ML RTUPB IV SCH (05:29)
[2019-09-21] MEDS: IPRATROPIUM/ALBUTEROL 0.5-2.5 MG/3 ML AMPUL NEB SCH ×4 (08:19→19:57)
[2019-09-21 09:28] LABS: ARTERIAL BLOOD BASE EXCESS 8.6 mmol/L; ARTERIAL BLOOD FIO2 32%; ARTERIAL BLOOD H2CO3 2.23 mmol/L (1.05-1.35); ARTERIAL BLOOD HCO3 36.8 mmol/L (20-24); ARTERIAL BLOOD O2 SATURATION 98.5 % (94-98); ARTERIAL BLOOD PH 7.31 (7.35-7.45)
[2019-09-21] MEDS: METHYLPREDNISOLONE INJ 40 MG/1 ML SDV IV SCH ×2 (09:29→21:23)
[2019-09-21] MEDS: ENOXAPARIN SODIUM INJ 40 MG/0.4 ML DISP.SYRIN SUBCUT SCH (09:29)
[2019-09-21] MEDS: FUROSEMIDE INJ/PF 20 MG/2 ML SDV IV SCH (09:29)
[2019-09-21] MEDS: FAMOTIDINE 20 MG TABLET PO SCH ×2 (09:29→21:23)
[2019-09-21] MEDS: POTASSIUM CHLORIDE 10 MEQ TABLET.ER PO SCH (09:29)
[2019-09-21] MEDS: DOCUSATE SODIUM 100 MG CAPSULE PO SCH (09:29)
[2019-09-21] MEDS ORDERED: VANCOMYCIN HCL 0 MG in DEXTROSE 5%-WATER 250 ML IV NR (11:30)
--- NOTE | 2019-09-21 11:43 | PDOC PROGRESS REPORT ---
Subjective Progress Note for:: 09/21/19 Reason For Visit: ALTERED MENTAL STATUS, HYPOXIA,COPD EXACERBATION 09/21/2019 Mental status, COPD exacerbation, hypoxia Physical Exam Vital Signs: Temp Pulse Resp BP Pulse Ox 97.2 F 108 H 20 150/82 H 98 09/21/19 08:18 09/21/19 08:20 09/21/19 08:20 09/21/19 08:18 09/21/19 08:20 Intake & Output 09/20/19 09/21/19 09/22/19 06:59 06:59 06:59 Intake Total 1330 2695 Output Total 600 750 Balance 730 1945 Weight 77.7 kg 70.1 kg General appearance: PRESENT: no acute distress, other - Patient sitting up in bed laughing talking joking with physical therapy Respiratory exam: PRESENT: wheezes Cardiovascular exam: PRESENT: RRR. ABSENT: diastolic murmur, rubs, systolic murmur Neurological exam: PRESENT: alert, awake, oriented to person, oriented to place, oriented to time, oriented to situation, CN II-XII grossly intact, other - Patient is oriented to person place and time. ABSENT: motor sensory deficit Psychiatric exam: PRESENT: appropriate affect, normal mood. ABSENT: homicidal ideation, suicidal ideation Results Laboratory Results: 09/20/19 05:12 09/20/19 05:12 09/21/19 09:15 Carbonic Acid 2.23 H HCO3/H2CO3 Ratio 16:1 ABG pH 7.31 L ABG pCO2 74.0 H* ABG pO2 143.0 H ABG HCO3 36.8 H ABG O2 Saturation 98.5 H ABG Base Excess 8.6 FiO2 32% 09/19/19 09:04 Blood Blood Culture (PCR) - Final Enterococcus Species Staphylococcus Aureus 09/19/19 09/19/19 09/20/19 08:10 13:31 06:18 Creatine Kinase 21 L CK-MB (CK-2) Troponin I 0.017 NT-Pro-B Natriuret Pep 1050 H 1060 H 09/20/19 09/20/19 09/20/19 06:18 12:43 12:43 Creatine Kinase 20 L CK-MB (CK-2) 1.48 1.83 Troponin I 0.018 0.030 NT-Pro-B Natriuret Pep 09/20/19 09/20/19 19:01 19:01 Creatine Kinase 24 L CK-MB (CK-2) 1.66 Troponin I 0.028 NT-Pro-B Natriuret Pep Impressions: Chest X-Ray 09/19/19 08:44 IMPRESSION: HEART ENLARGED WITHOUT FAILURE. NO OTHER SIGNIFICANT RADIOGRAPHIC FINDING IN THE CHEST. Assessment and Plan - Diagnosis (1) Failure to thrive syndrome, adult Is this a current diagnosis for this admission?: Yes (2) Morbid obesity Is this a current diagnosis for this admission?: Yes (3) Acute and chronic respiratory failure Qualifiers: Respiratory failure complication: hypoxia and hypercapnia Qualified Code(s): J96.21 - Acute and chronic respiratory failure with hypoxia; J96.22 - Acute and chronic respiratory failure with hypercapnia Is this a current diagnosis for this admission?: Yes (4) COPD exacerbation Is this a current diagnosis for this admission?: Yes (5) Chronic anemia Is this a current diagnosis for this admission?: Yes (6) Coronary artery disease Qualifiers: Coronary Disease-Associated Artery/Lesion type: [place] artery [place] vs. transplanted heart: [place] heart Associated angina: without angina Qualified Code(s): I25.10 - Atherosclerotic heart disease of [place] coronary artery without angina pectoris Is this a current diagnosis for this admission?: Yes (7) Debility and deconditioning Is this a current diagnosis for this admission?: Yes (8) Dementia Qualifiers: Dementia type: unspecified type Dementia behavioral disturbance: without behavioral disturbance Qualified Code(s): F03.90 - Unspecified dementia without behavioral disturbance Is this a current diagnosis for this admission?: Yes (9) Hypothyroidism Qualifiers: Hypothyroidism type: acquired Qualified Code(s): E03.9 - Hypothyroidism, unspecified Is this a current diagnosis for this admission?: Yes (10) Bacteremia Is this a current diagnosis for this admission?: Yes - Plan Summary Summary: 09/19/2019 Patient is admitted for her routine complaint of increased shortness of breath, COPD exacerbation,. Chest x-ray shows no sign of obvious failure or pneumonia. Treat patients with IV Solu-Medrol, pulmonary toiletry and gentle hydration Will talk to family about palliative care consult Patient was seen by the monotype machinist however I agree that patient does not need to be in ICU at this time. Patient appears to be at her typical baseline for admission to the hospital 09/20/2019 Urine cultures growing out gram-negative rods blood cultures growing out gram- positive cocci, staph aureus, enterococcus disease Patient was placed on IV Zosyn last night due to her probable MRSA in blood cu ltures Due to patient's multiple drug allergies I am going to consult infectious disease, earlier rather than later. Clinically patient actually looks much improved today from her admission yesterd ay Temperature 97.2 pulse approximately 100 blood pressure 135/71 O2 sat 100% on 4 L, patient has been on room air as well WBCs are normal, electrolytes are grossly normal Continue as above 09/21/2019 She states she feels much better with less shortness of breath Temperature 98.5 pulse 109 which is normal for her blood pressure 136/81 unFortunately patient's oxygen concentration has been jacked up to 5 even though specific order was for it to stay 3 or lower. Patient does not need to run a saturation of 100%, at the expense of retaining CO2. Since patient's oxygen has been turned back down to 3 L her O2 sats have remained at either 98 or 99 Patient was seen in consultation by infectious disease reviewed the chart. Recommended starting vancomycin discontinuing the Zyvox. Also repeat blood cultures tomorrow and a TTE. I have put all those orders in today White count is stable and normal, patient looks much better and feels better - Time Time Spent with patient: 25-34 minutes
[2019-09-21] MEDS ORDERED: VANCOMYCIN HCL 1,250 MG in DEXTROSE 5%-WATER 250 ML IV ONE (13:00)
[2019-09-21] MEDS ORDERED: MEROPENEM 1 GM VIAL IV PRN (20:20)
[2019-09-21] MEDS ORDERED: MEROPENEM 1 GM VIAL ONE (21:12)
[2019-09-21] MEDS: DIPHENHYDRAMINE HCL 50 MG/ML VIAL IV SCH (21:23)
[2019-09-21] MEDS: VANCOMYCIN HCL 750 MG in DEXTROSE 5%-WATER 250 ML IV SCH (21:24)
[2019-09-21] MEDS: MEROPENEM 1 GM in NORMAL SALINE 50 ML IV SCH (22:00)
--- NOTE | 2019-09-21 22:07 | Progress Note ---
Provider Note Provider Note: Critical care note: 09/21/2019 Critical care start time: 20:14 Critical care issue: Urine culture positive for ESBL E. coli I was called by the microbiology laboratory secretary with a critical culture report of ESBL E. coli present in the patient's urine. Patient was seen and informed of her culture result and the need for additional treatment. The patient's multiple allergies were noted and discussed as the antibiotic treatment of choice is meropenem and she has a history of penicillin allergies although her exact reaction to penicillins is not well documented and would not appear to be a true penicillin allergy that would result in anaphylaxis. As a precautionary measure the patient was pretreated with Benadryl 25 mg IV. As such the patient was given her first dose of meropenem while I was observing her and the observation period continued well after the meropenem infusion had completed. Patient showed no evidence of acute allergic reaction. Critical care end time: 23:44 Total critical care time: 31 minutes
[2019-09-22] MEDS: LEVOTHYROXINE SODIUM 0.05 MG TABLET PO SCH (06:09)
[2019-09-22] MEDS: MEROPENEM 1 GM in NORMAL SALINE 50 ML IV SCH ×3 (06:09→22:43)
[2019-09-22] MEDS: DIPHENHYDRAMINE HCL 50 MG/ML VIAL IV SCH ×3 (06:09→22:43)
[2019-09-22] MEDS: IPRATROPIUM/ALBUTEROL 0.5-2.5 MG/3 ML AMPUL NEB SCH ×4 (08:14→20:12)
[2019-09-22] MEDS: METHYLPREDNISOLONE INJ 40 MG/1 ML SDV IV SCH ×2 (09:24→22:43)
[2019-09-22] MEDS: ENOXAPARIN SODIUM INJ 40 MG/0.4 ML DISP.SYRIN SUBCUT SCH (09:24)
[2019-09-22] MEDS: POTASSIUM CHLORIDE 10 MEQ TABLET.ER PO SCH (09:24)
[2019-09-22] MEDS: DOCUSATE SODIUM 100 MG CAPSULE PO SCH (09:24)
[2019-09-22] MEDS: VANCOMYCIN HCL 750 MG in DEXTROSE 5%-WATER 250 ML IV SCH ×2 (09:24→22:43)
[2019-09-22] MEDS: FUROSEMIDE INJ/PF 20 MG/2 ML SDV IV SCH (09:24)
[2019-09-22] MEDS: FAMOTIDINE 20 MG TABLET PO SCH ×2 (09:24→22:43)
--- NOTE | 2019-09-22 11:34 | PDOC PROGRESS REPORT ---
Subjective Progress Note for:: 09/22/19 Reason For Visit: ALTERED MENTAL STATUS, HYPOXIA,COPD EXACERBATION 09/22/2019 Patient noncompliance, COPD exacerbation, altered mental status, hypoxia Physical Exam Vital Signs: Temp Pulse Resp BP Pulse Ox 97.4 F 105 H 20 143/89 H 98 09/22/19 08:08 09/22/19 08:14 09/22/19 08:14 09/22/19 08:08 09/22/19 08:14 Intake & Output 09/21/19 09/22/19 09/23/19 06:59 06:59 06:59 Intake Total 2995 2003 Output Total 750 2024 Balance 2245 - Weight 70.1 kg 77.3 kg General appearance: PRESENT: no acute distress Respiratory exam: PRESENT: clear to auscultation jeff, other. ABSENT: rales, rhonchi, wheezes Cardiovascular exam: PRESENT: RRR. ABSENT: diastolic murmur, rubs, systolic murmur Neurological exam: PRESENT: alert, awake, oriented to person, oriented to place, oriented to time, oriented to situation, CN II-XII grossly intact. ABSENT: motor sensory deficit Psychiatric exam: PRESENT: agitated, other - Patient refused to have lab draw her blood this morning Results Laboratory Results: 09/20/19 05:12 09/20/19 05:12 09/19/19 11:45 Catheterized Urine Urine Culture - Final Escherichia Coli Esbl 09/19/19 09:04 Blood Blood Culture (PCR) - Final Enterococcus Species Staphylococcus Aureus 09/19/19 09/19/19 09/20/19 08:10 13:31 06:18 Creatine Kinase 21 L CK-MB (CK-2) Troponin I 0.017 NT-Pro-B Natriuret Pep 1050 H 1060 H 09/20/19 09/20/19 09/20/19 06:18 12:43 12:43 Creatine Kinase 20 L CK-MB (CK-2) 1.48 1.83 Troponin I 0.018 0.030 NT-Pro-B Natriuret Pep 09/20/19 09/20/19 19:01 19:01 Creatine Kinase 24 L CK-MB (CK-2) 1.66 Troponin I 0.028 NT-Pro-B Natriuret Pep Impressions: Chest X-Ray 09/19/19 08:44 IMPRESSION: HEART ENLARGED WITHOUT FAILURE. NO OTHER SIGNIFICANT RADIOGRAPHIC FINDING IN THE CHEST. Assessment and Plan - Diagnosis (1) Failure to thrive syndrome, adult Is this a current diagnosis for this admission?: Yes (2) Morbid obesity Is this a current diagnosis for this admission?: Yes (3) Acute and chronic respiratory failure Qualifiers: Respiratory failure complication: hypoxia and hypercapnia Qualified Code(s): J96.21 - Acute and chronic respiratory failure with hypoxia; J96.22 - Acute and chronic respiratory failure with hypercapnia Is this a current diagnosis for this admission?: Yes (4) COPD exacerbation Is this a current diagnosis for this admission?: Yes (5) Chronic anemia Is this a current diagnosis for this admission?: Yes (6) Coronary artery disease Qualifiers: Coronary Disease-Associated Artery/Lesion type: [place] artery [place] vs. transplanted heart: [place] heart Associated angina: without angina Qualified Code(s): I25.10 - Atherosclerotic heart disease of [place] coronary artery without angina pectoris Is this a current diagnosis for this admission?: Yes (7) Debility and deconditioning Is this a current diagnosis for this admission?: Yes (8) Dementia Qualifiers: Dementia type: unspecified type Dementia behavioral disturbance: without behavioral disturbance Qualified Code(s): F03.90 - Unspecified dementia without behavioral disturbance Is this a current diagnosis for this admission?: Yes (9) Hypothyroidism Qualifiers: Hypothyroidism type: acquired Qualified Code(s): E03.9 - Hypothyroidism, unspecified Is this a current diagnosis for this admission?: Yes (10) Bacteremia Is this a current diagnosis for this admission?: Yes - Plan Summary Summary: 09/19/2019 Patient is admitted for her routine complaint of increased shortness of breath, COPD exacerbation,. Chest x-ray shows no sign of obvious failure or pneumonia. Treat patients with IV Solu-Medrol, pulmonary toiletry and gentle hydration Will talk to family about palliative care consult Patient was seen by the business employment specialist however I agree that patient does not need t o be in ICU at this time. Patient appears to be at her typical baseline for admission to the hospital 09/20/2019 Urine cultures growing out gram-negative rods blood cultures growing out gram-positive cocci, staph aureus, enterococcus disease Patient was placed on IV Zosyn last night due to her probable MRSA in blood cultures Due to patient's multiple drug allergies I am going to consult infectious disease, earlier rather than later. Clinically patient actually looks much improved today from her admission yesterday Temperature 97.2 pulse approximately 100 blood pressure 135/71 O2 sat 100% on 4 L, patient has been on room air as well WBCs are normal, electrolytes are grossly normal Continue as above 09/21/2019 She states she feels much better with less shortness of breath Temperature 98.5 pulse 109 which is normal for her blood pressure 136/81 unFortunately patient's oxygen concentration has been jacked up to 5 even though specific order was for it to stay 3 or lower. Patient does not need to run a saturation of 100%, at the expense of retaining CO2. Since patient's oxygen has been turned back down to 3 L her O2 sats have remained at either 98 or 99 Patient was seen in consultation by infectious disease reviewed the chart. Recommended starting vancomycin discontinuing the Zyvox. Also repeat blood cultures tomorrow and a TTE. I have put all those orders in today White count is stable and normal, patient looks much better and feels better 09/22/2019 Patient refused to have her labs drawn this morning Patient's vital signs are unchanged. Her oxygen saturation is between 98 and 100% at 3 L which is what she uses at home Since urine, E. coli is ESBL positive she has been started on meropenem, continue the vancomycin for MRSA She was supposed to have repeat blood cultures done per infectious disease recommendation, however as stated above she has refused blood work Patient will probably need a PICC line to go home with. Hopefully can get the TTE done this week - Time Time Spent with patient: 25-34 minutes
[2019-09-22 22:05] LABS: VANCOMYCIN,TROUGH 18.4 ug/mL (5.0-20.0)
[2019-09-23] MEDS: MEROPENEM 1 GM in NORMAL SALINE 50 ML IV SCH ×3 (05:48→21:45)
[2019-09-23] MEDS: DIPHENHYDRAMINE HCL 50 MG/ML VIAL IV SCH ×3 (05:49→21:44)
[2019-09-23] MEDS: LEVOTHYROXINE SODIUM 0.05 MG TABLET PO SCH (05:50)
[2019-09-23] MEDS: NORMAL SALINE 1000 ML 1,000 ML IV PRN (07:00)
[2019-09-23] MEDS: IPRATROPIUM/ALBUTEROL 0.5-2.5 MG/3 ML AMPUL NEB SCH ×4 (08:47→20:28)
--- NOTE | 2019-09-23 11:07 | PDOC PROGRESS REPORT ---
Subjective Progress Note for:: 09/23/19 Reason For Visit: ALTERED MENTAL STATUS, HYPOXIA,COPD EXACERBATION 09/23/2019 COPD exacerbation, altered mental status, hypoxia, patient noncompliance Physical Exam Vital Signs: Temp Pulse Resp BP Pulse Ox 97.3 F 101 H 22 H 134/93 H 100 09/23/19 07:57 09/23/19 08:47 09/23/19 08:47 09/23/19 07:57 09/23/19 08:47 Intake & Output 09/22/19 09/23/19 09/24/19 06:59 06:59 06:59 Intake Total 2053 1350 50 Output Total 2024 1150 Balance 29 200 50 Weight 77.3 kg 72.2 kg General appearance: PRESENT: no acute distress, other - Patient seems lethargic this morning for no apparent reason Respiratory exam: PRESENT: rhonchi, wheezes - Rhonchi and wheezes scattered Cardiovascular exam: PRESENT: RRR. ABSENT: diastolic murmur, rubs, systolic murmur Neurological exam: PRESENT: altered Psychiatric exam: PRESENT: unusual affect Results Laboratory Results: 09/20/19 05:12 09/20/19 05:12 09/19/19 09:04 Blood Blood Culture (PCR) - Final Enterococcus Species Staphylococcus Aureus 09/19/19 09/19/19 09/20/19 08:10 13:31 06:18 Creatine Kinase 21 L CK-MB (CK-2) Troponin I 0.017 NT-Pro-B Natriuret Pep 1050 H 1060 H 09/20/19 09/20/19 09/20/19 06:18 12:43 12:43 Creatine Kinase 20 L CK-MB (CK-2) 1.48 1.83 Troponin I 0.018 0.030 NT-Pro-B Natriuret Pep 09/20/19 09/20/19 19:01 19:01 Creatine Kinase 24 L CK-MB (CK-2) 1.66 Troponin I 0.028 NT-Pro-B Natriuret Pep Impressions: Chest X-Ray 09/19/19 08:44 IMPRESSION: HEART ENLARGED WITHOUT FAILURE. NO OTHER SIGNIFICANT RADIOGRAPHIC FINDING IN THE CHEST. Assessment and Plan - Diagnosis (1) Failure to thrive syndrome, adult Is this a current diagnosis for this admission?: Yes (2) Morbid obesity Is this a current diagnosis for this admission?: Yes (3) Acute and chronic respiratory failure Qualifiers: Respiratory failure complication: hypoxia and hypercapnia Qualified Code(s): J96.21 - Acute and chronic respiratory failure with hypoxia; J96.22 - Acute and chronic respiratory failure with hypercapnia Is this a current diagnosis for this admission?: Yes (4) COPD exacerbation Is this a current diagnosis for this admission?: Yes (5) Chronic anemia Is this a current diagnosis for this admission?: Yes (6) Coronary artery disease Qualifiers: Coronary Disease-Associated Artery/Lesion type: [place] artery [place] vs. transplanted heart: [place] heart Associated angina: without angina Qualified Code(s): I25.10 - Atherosclerotic heart disease of [place] coronary artery without angina pectoris Is this a current diagnosis for this admission?: Yes (7) Debility and deconditioning Is this a current diagnosis for this admission?: Yes (8) Dementia Qualifiers: Dementia type: unspecified type Dementia behavioral disturbance: without behavioral disturbance Qualified Code(s): F03.90 - Unspecified dementia without behavioral disturbance Is this a current diagnosis for this admission?: Yes (9) Hypothyroidism Qualifiers: Hypothyroidism type: acquired Qualified Code(s): E03.9 - Hypothyroidism, unspecified Is this a current diagnosis for this admission?: Yes (10) Bacteremia Is this a current diagnosis for this admission?: Yes - Plan Summary Summary: 09/19/2019 Patient is admitted for her routine complaint of increased shortness of breath, COPD exacerbation,. Chest x-ray shows no sign of obvious failure or pneumonia. Treat patients with IV Solu-Medrol, pulmonary toiletry and gentle hydration Will talk to family about palliative care consult Patient was seen by the transfer table operator helper however I agree that patient does not need to be in ICU at this time. Patient appears to be at her typical baseline for admission to the hospital 09/20/2019 Urine cultures growing out gram-negative rods blood cultures growing out gram- positive cocci, staph aureus, enterococcus disease Patient was placed on IV Zosyn last night due to her probable MRSA in blood cultures Due to patient's multiple drug allergies I am going to consult infectious disease, earlier rather than later. Clinically patient actually looks much improved today from her admission yesterday Temperature 97.2 pulse approximately 100 blood pressure 135/71 O2 sat 100% on 4 L, patient has been on room air as well WBCs are normal, electrolytes are grossly normal Continue as above 09/21/2019 She states she feels much better with less shortness of breath Temperature 98.5 pulse 109 which is normal for her blood pressure 136/81 unFortunately patient's oxygen concentration has been jacked up to 5 even though specific order was for it to stay 3 or lower. Patient does not need to run a saturation of 100%, at the expense of retaining CO2. Since patient's oxygen has been turned back down to 3 L her O2 sats have remained at either 98 or 99 Patient was seen in consultation by infectious disease reviewed the chart. Recommended starting vancomycin discontinuing the Zyvox. Also repeat blood cultures tomorrow and a TTE. I have put all those orders in today White count is stable and normal, patient looks much better and feels better 09/22/2019 Patient refused to have her labs drawn this morning Patient's vital signs are unchanged. Her oxygen saturation is between 98 and 100% at 3 L which is what she uses at home Since urine, E. coli is ESBL positive she has been started on meropenem, continue the vancomycin for MRSA She was supposed to have repeat blood cultures done per infectious disease recommendation, however as stated above she has refused blood work Patient will probably need a PICC line to go home with. Hopefully can get the TTE done this week 09/23/2019 97.3 temperature, pulse is her usual approximately 102 Blood pressure is stable 134/93 Respirations are her usual 22 Patient is on BiPAP this morning and she is either been on BiPAP or nasal cannula since she has been here. BiPAP settings are 10 and 5 with an FiO2 of 35%. I think she is lethargic from her high oxygen concentration and she is probably retaining CO2. she has done this during this hospitalization and I am trying to get them to keep her oxygen concentration lower which she seems to respond better I am going to have them cut this back to 28% I am going to order her labs again she refused them yesterday and see if she will agree to those being drawn today also going to draw another blood gas. The last gas reflected a high's PCO2 and as soon as this was corrected she became more awake and alert Patient is growing out Pseudomonas in her sputum she is growing out E. coli in her urine she is growing out enterococcus and MRSA in her blood Did get an infectious disease consult the other day prior to her growing out the sputum She is now on vancomycin and meropenem Patient needs to be made palliative care. She comes into the hospital at least once every month for the same problems and same organisms - Time Time Spent with patient: 25-34 minutes
[2019-09-23] MEDS: POTASSIUM CHLORIDE 10 MEQ TABLET.ER PO SCH (11:18)
[2019-09-23] MEDS: DOCUSATE SODIUM 100 MG CAPSULE PO SCH (11:18)
[2019-09-23] MEDS: FAMOTIDINE 20 MG TABLET PO SCH ×2 (11:18→21:45)
[2019-09-23] MEDS: METHYLPREDNISOLONE INJ 40 MG/1 ML SDV IV SCH ×2 (11:18→21:44)
[2019-09-23] MEDS: FUROSEMIDE INJ/PF 20 MG/2 ML SDV IV SCH (11:18)
[2019-09-23] MEDS: ENOXAPARIN SODIUM INJ 40 MG/0.4 ML DISP.SYRIN SUBCUT SCH (11:18)
[2019-09-23] MEDS: VANCOMYCIN HCL 750 MG in DEXTROSE 5%-WATER 250 ML IV SCH ×2 (11:21→21:48)
[2019-09-23 12:22] LABS: ABSOLUTE EOSINOPHILS # (AUTO) 0.1 10^3/uL (0.0-0.6); ABSOLUTE LYMPHOCYTES (AUTO) 0.7 10^3/uL (0.5-4.7); ABSOLUTE MONOCYTES (AUTO) 0.7 10^3/uL (0.1-1.4); ABSOLUTE NEUT (AUTO) 6.4 10^3/uL (1.7-8.2); BASOPHILS % (AUTO) 0.3 % (0-2); HEMATOCRIT 25.5 % (36.0-47.0); HEMOGLOBIN 8.7 g/dL (12.0-15.5); LYMPHOCYTES % (AUTO) 9.4 % (13-45); MEAN CORPUSCULAR HEMOGLOBIN 33.1 pg (27.0-33.4); MEAN CORPUSCULAR HGB CONC 34.1 g/dL (32.0-36.0); MEAN CORPUSCULAR VOLUME 97 fl (80-97); MONOCYTES % (AUTO) 8.8 % (3-13); RED BLOOD COUNT 2.62 10^6/uL (3.72-5.28); SEGMENTED NEUTROPHILS % (AUTO) 80.5 % (42-78); TOTAL CELLS COUNTED % (AUTO) 100 %; WHITE BLOOD COUNT 7.9 10^3/uL (4.0-10.5)
[2019-09-23 12:36] LABS: BLOOD UREA NITROGEN 10 mg/dL (7-20); CALCIUM 8.1 mg/dL (8.4-10.2); CARBON DIOXIDE 35 mmol/L (22-30); CHLORIDE 105 mmol/L (98-107); GLUCOSE 82 mg/dL (75-110); POTASSIUM 4.2 mmol/L (3.6-5.0)
[2019-09-23 12:44] LABS: ARTERIAL BLOOD BASE EXCESS 12.5 mmol/L; ARTERIAL BLOOD FIO2 3L; ARTERIAL BLOOD H2CO3 2.29 mmol/L (1.05-1.35); ARTERIAL BLOOD HCO3 40.7 mmol/L (20-24); ARTERIAL BLOOD O2 SATURATION 96.2 % (94-98); ARTERIAL BLOOD PH 7.35 (7.35-7.45); ARTERIAL BLOOD PO2 91.6 mmHg (80-100)
[2019-09-23 12:46] LABS: ARTERIAL BLOOD PCO2 76.1 mmHg (35-45)
[2019-09-23 12:50] LABS: PLATELET COUNT 318 10^3/uL (150-450)
[2019-09-23 13:01] LABS: ANION GAP 3 (5-19)
--- NOTE | 2019-09-23 13:50 | CDI QUERY ---
CDI Query CDI Review: Dear Provider: To better reflect your patients severity of illness, morbidity, and resource utilization Please specify and document in the Progress Notes and Discharge Summary if you are monitoring / treating / evaluating any of the following conditions: Query Clinical indicators Morbid Obesity / BMI ? Obesity / BMI ? Unable to determine Other Documented in H&P: Morbid obesity Is this a current diagnosis for this admission?: Yes Listed in the chart header: 5 ft 6 in 72.2 kg BSA: 1.82m2 BMI: 25.7 kg/m2 (Morbid Obesity is defined as having a BMI > 40 Obesity is defined as having a BMI > 30) The terms probable, suspected, likely, possible or still to be ruled out may be used if you are unable to determine the exact nature of a condition. Thank you, Clinical Documentation Physician Advisors MATIAS Pa RN, BSN RN Office [phone] Office [phone]
[2019-09-24] MEDS: ACETAMINOPHEN 325 MG TABLET PO PRN (01:21)
[2019-09-24] MEDS: LEVOTHYROXINE SODIUM 0.05 MG TABLET PO SCH (05:05)
[2019-09-24] MEDS: DIPHENHYDRAMINE HCL 50 MG/ML VIAL IV SCH ×3 (05:05→22:33)
[2019-09-24] MEDS: MEROPENEM 1 GM in NORMAL SALINE 50 ML IV SCH (05:05)
[2019-09-24] MEDS: IPRATROPIUM/ALBUTEROL 0.5-2.5 MG/3 ML AMPUL NEB SCH ×4 (09:23→20:51)
[2019-09-24] MEDS: ENOXAPARIN SODIUM INJ 40 MG/0.4 ML DISP.SYRIN SUBCUT SCH (09:59)
[2019-09-24] MEDS: METHYLPREDNISOLONE INJ 40 MG/1 ML SDV IV SCH ×2 (09:59→21:13)
[2019-09-24] MEDS: FUROSEMIDE INJ/PF 20 MG/2 ML SDV IV SCH (09:59)
[2019-09-24] MEDS: DOCUSATE SODIUM 100 MG CAPSULE PO SCH (09:59)
[2019-09-24] MEDS: POTASSIUM CHLORIDE 10 MEQ TABLET.ER PO SCH (09:59)
[2019-09-24] MEDS: FAMOTIDINE 20 MG TABLET PO SCH ×2 (10:00→21:13)
[2019-09-24] MEDS: VANCOMYCIN HCL 750 MG in DEXTROSE 5%-WATER 250 ML IV SCH ×2 (10:00→22:35)
--- NOTE | 2019-09-24 19:18 | PDOC PROGRESS REPORT ---
Subjective Progress Note for:: 09/24/19 Subjective:: The patient is a 74-year-old female, well-known to our service, with a history of atrial fibrillation, CHF, CAD, IA, hypertension, COPD, chronic respiratory failure, sleep apnea, DM 2, hypothyroidism, lung cancer with brain metastasis, GERD, arthritis, gout, dementia, depression, with frequent admissions for COPD exacerbation with hypercapnia resulting in metabolic encephalopathy. The patient was seen on morning rounds. She was found resting in bed, comfortably, on supplemental oxygen by nasal cannula. At this visit she is alert and oriented x4 and does remember me from many of her previous admissions all makes jokes about conversations that we have had in the past. She tells me that she is feeling much better than she did yesterday, though does continue to have slight increased sputum production from her baseline. She notes that her chronic rhonchi and wheezing seem to be at about her baseline (to which I agree). We did discuss her MRSA bacteremia and sputum cultures; patient denies any new or recent skin wounds or infections. We discussed the need for DANELLE and likely long-term antibiotics. I introduced the concept of discharge to SNF for comp letion of antibiotic therapy. The patient is initially hesitant, but then does admit that it would be difficult for her son and caregiver (Jason and Chika) to provide IV antibiotic care at home. She then states, "while I have to go, then I will go." In the past, she has been highly resistant to SNF as an option. She denies fever, chills, chest pain, palpitations, abdominal pain, nausea vomiting and diarrhea. She has no other questions or concerns at this time. Plan of care reviewed with nursing. Reason For Visit: ALTERED MENTAL STATUS, HYPOXIA,COPD EXACERBATION Physical Exam Vital Signs: Temp Pulse Resp BP Pulse Ox 97.9 F 105 H 18 137/72 H 100 09/24/19 07:30 09/24/19 16:11 09/24/19 16:11 09/24/19 07:30 09/24/19 16:11 Intake & Output 09/23/19 09/24/19 09/25/19 06:59 06:59 06:59 Intake Total 1600 2654 466 Output Total 1150 2050 400 Balance 450 604 66 Weight 72.2 kg 78.8 kg General appearance: PRESENT: no acute distress, cooperative, disheveled, well- developed, well-nourished Head exam: PRESENT: atraumatic, normocephalic Eye exam: PRESENT: conjunctiva pink, EOMI, PERRLA. ABSENT: scleral icterus Mouth exam: PRESENT: moist, tongue midline Teeth exam: PRESENT: poor dentation Respiratory exam: PRESENT: prolonged expiratory phas, rhonchi, symmetrical, unlabored, wheezes, other - Supplemental oxygen by nasal cannula. ABSENT: rales Cardiovascular exam: PRESENT: RRR, +S1, +S2, systolic murmur. ABSENT: diastolic murmur, rubs Pulses: PRESENT: normal dorsalis pedis pul Vascular exam: PRESENT: normal capillary refill GI/Abdominal exam: PRESENT: normal bowel sounds, soft. ABSENT: distended, guar ding, mass, organolmegaly, rebound, tenderness Rectal exam: PRESENT: deferred Gentrourinary exam: PRESENT: indwelling catheter Extremities exam: PRESENT: full ROM. ABSENT: calf tenderness, clubbing, pedal edema Neurological exam: PRESENT: alert, awake, oriented to person, oriented to place, oriented to time, oriented to situation, CN II-XII grossly intact. ABSENT: motor sensory deficit Psychiatric exam: PRESENT: appropriate affect, normal mood. ABSENT: homicidal ideation, suicidal ideation Skin exam: PRESENT: dry, intact, warm. ABSENT: cyanosis, rash Results Laboratory Results: 09/23/19 11:29 09/23/19 11:29 09/19/19 15:21 Blood Blood Culture - Final NO GROWTH IN 5 DAYS 09/19/19 09:04 Blood Blood Culture (PCR) - Final Enterococcus Species Staphylococcus Aureus 09/20/19 06:15 Sputum Gram Stain - Final 09/20/19 06:15 Sputum Sputum Culture - Final Pseudomonas Aeruginosa Mrsa (Meth Resis Staph Aureus) Normal Ajyshree Absent 09/19/19 09/19/19 09/20/19 08:10 13:31 06:18 Creatine Kinase 21 L CK-MB (CK-2) Troponin I 0.017 NT-Pro-B Natriuret Pep 1050 H 1060 H 09/20/19 09/20/19 09/20/19 06:18 12:43 12:43 Creatine Kinase 20 L CK-MB (CK-2) 1.48 1.83 Troponin I 0.018 0.030 NT-Pro-B Natriuret Pep 09/20/19 09/20/19 19:01 19:01 Creatine Kinase 24 L CK-MB (CK-2) 1.66 Troponin I 0.028 NT-Pro-B Natriuret Pep Impressions: Chest X-Ray 09/19/19 08:44 IMPRESSION: HEART ENLARGED WITHOUT FAILURE. NO OTHER SIGNIFICANT RADIOGRAPHIC FINDING IN THE CHEST. Assessment and Plan - Diagnosis (1) Bacteremia Is this a current diagnosis for this admission?: Yes Plan: Blood culture (09/19/2019; 2 of 4) positive for MRSA IV vancomycin started 09/21/2019 Repeat blood cultures (09/24/2019) are pending. DANELLE is pending. Infectious diseases consulted; appreciate their recommendations. (2) Acute respiratory failure with hypercapnia Is this a current diagnosis for this admission?: Yes Plan: Significantly improved. Now maintaining oxygen saturations on supplemental oxygen via nasal cannula while at rest. She is A&O x4 at the time of my visit. ABG (09/23/2019) shows compensated respiratory acidosis with CO2 of 76.1; at the highest her PCO2 has been. We will continue supplemental oxygen BiPAP as needed maintain saturations. Continue scheduled nebulizer treatments. Continue IV Solu-Medrol. Mucinex twice daily. Incentive spirometer and flutter valve to bedside. (3) COPD exacerbation Is this a current diagnosis for this admission?: Yes Plan: Improved. Sputum culture shows MRSA and Pseudomonas. Continues on IV vancomycin. We will start Cipro for pseudomonal coverage Remaining management as above. (4) Chronic anemia Is this a current diagnosis for this admission?: Yes Plan: Stable; at baseline hemoglobin of 8.7. No evidence of active bleeding at this time. Continue multivitamin and iron supplement. (5) Coronary artery disease Qualifiers: Coronary Disease-Associated Artery/Lesion type: [place] artery [place] vs. transplanted heart: [place] heart Associated angina: without angina Qualified Code(s): I25.10 - Atherosclerotic heart disease of [place] coronary artery without angina pectoris Is this a current diagnosis for this admission?: Yes (6) Debility and deconditioning Is this a current diagnosis for this admission?: Yes Plan: PT/OT consulted. Likely to discharge to SNF. Discharge planning is consulted. (7) Dementia Qualifiers: Dementia type: unspecified type Dementia behavioral disturbance: without behavioral disturbance Qualified Code(s): F03.90 - Unspecified dementia without behavioral disturbance Is this a current diagnosis for this admission?: Yes Plan: Supportive care. Avoid narcotic medications. (8) Hypothyroid Is this a current diagnosis for this admission?: Yes Plan: Continue home dose levothyroxine. - Time Time Spent with patient: 35 or more minutes Medications reviewed and adjusted accordingly: Yes Anticipated discharge: SNF Within: Other - following Blood Culture clearance and PICC placement
[2019-09-24] MEDS: NORMAL SALINE 1000 ML 1,000 ML IV PRN (20:44)
[2019-09-24] MEDS: GUAIFENESIN 600 MG TABLET.SA PO SCH (21:13)
[2019-09-24] MEDS: CIPROFLOXACIN 400 MG/D5W RTU 400 MG/200 ML RTUPB IV SCH (21:13)
[2019-09-25] MEDS: LEVOTHYROXINE SODIUM 0.05 MG TABLET PO SCH (05:11)
[2019-09-25] MEDS: DIPHENHYDRAMINE HCL 50 MG/ML VIAL IV SCH ×3 (05:11→22:16)
[2019-09-25 06:07] LABS: HEMATOCRIT 25.5 % (36.0-47.0); HEMOGLOBIN 8.8 g/dL (12.0-15.5); MEAN CORPUSCULAR HEMOGLOBIN 33.2 pg (27.0-33.4); MEAN CORPUSCULAR HGB CONC 34.4 g/dL (32.0-36.0); MEAN CORPUSCULAR VOLUME 97 fl (80-97); PLATELET COUNT 324 10^3/uL (150-450); RED BLOOD COUNT 2.64 10^6/uL (3.72-5.28); RED CELL DISTRIBUTION WIDTH 16.8 % (11.5-14.0); WHITE BLOOD COUNT 10.6 10^3/uL (4.0-10.5)
[2019-09-25 06:32] LABS: ANION GAP 5 (5-19); BLOOD UREA NITROGEN 10 mg/dL (7-20); CALCIUM 8.3 mg/dL (8.4-10.2); GLUCOSE 165 mg/dL (75-110); POTASSIUM 4.1 mmol/L (3.6-5.0)
[2019-09-25 06:38] LABS: CARBON DIOXIDE 35 mmol/L (22-30); CHLORIDE 100 mmol/L (98-107)
[2019-09-25] MEDS: IPRATROPIUM/ALBUTEROL 0.5-2.5 MG/3 ML AMPUL NEB SCH ×4 (08:01→20:38)
[2019-09-25] MEDS: FERROUS SULFATE 325 MG TABLET PO SCH (10:23)
[2019-09-25] MEDS: FAMOTIDINE 20 MG TABLET PO SCH ×2 (10:23→22:26)
[2019-09-25] MEDS: DOCUSATE SODIUM 100 MG CAPSULE PO SCH (10:23)
[2019-09-25] MEDS: GUAIFENESIN 600 MG TABLET.SA PO SCH ×2 (10:24→22:26)
[2019-09-25] MEDS: POTASSIUM CHLORIDE 10 MEQ TABLET.ER PO SCH (10:24)
[2019-09-25] MEDS: CIPROFLOXACIN 400 MG/D5W RTU 400 MG/200 ML RTUPB IV SCH ×2 (10:26→22:25)
[2019-09-25] MEDS: FUROSEMIDE INJ/PF 20 MG/2 ML SDV IV SCH (10:27)
[2019-09-25] MEDS: ENOXAPARIN SODIUM INJ 40 MG/0.4 ML DISP.SYRIN SUBCUT SCH (10:27)
[2019-09-25] MEDS: VANCOMYCIN HCL 750 MG in DEXTROSE 5%-WATER 250 ML IV SCH ×2 (10:31→22:26)
[2019-09-25] MEDS: METHYLPREDNISOLONE INJ 40 MG/1 ML SDV IV SCH ×2 (10:31→22:26)
[2019-09-25] MEDS: MULTIVITAMIN TABLET PO SCH (10:31)
[2019-09-25 11:57] LABS: VANCOMYCIN,TROUGH 18.4 ug/mL (5.0-20.0)
[2019-09-25] MEDS ORDERED: PROPOFOL INJ 200 MG/20 ML VIAL IV ONE (12:42)
--- NOTE | 2019-09-25 13:54 | PDOC CONSULTATION ---
Consultation Consult Date: 09/25/19 Provider Consulted: NETO AUGUSTINE Consult reason:: Suspected endocarditis History of Present Illness Admission Date/PCP: 09/19/19 11:46 ARASELI AGUILAR MD Patient complains of: No complaints at the moment History of Present Illness: TRENTON MCCOY is a 74 year old female with the following active problems 1. Congestive heart failure 2. Coronary artery disease 3. Systemic hypertension 4. COPD 5. Sleep apnea 6. Diabetes mellitus 7. Lung cancer with brain mets Patient was admitted and was found to have MRSA bacteremia I was consulted for further evaluation for transesophageal echocardiogram to exclude endocarditis due to persistent bacteremia. Past Medical History Cardiac Medical History: Reports: Atrial Fibrillation, Congestive Heart Failure, Coronary Artery Disease, Myocardial Infarction, Hypertension Denies: DVT, Hyperlipidema, Pulmonary Embolism Pulmonary Medical History: Reports: Asthma, Bronchitis, Chronic Obstructive Pulmonary Disease (COPD), Pneumonia, Respiratory Failure - Chronic respiratory failure, Sleep Apnea Denies: Tuberculosis Neurological Medical History: Denies: Seizures Endocrine Medical History: Reports: Diabetes Mellitus Type 2, Hypothyroidism Denies: Diabetes Mellitus Type 1, Hyperthyroidism Renal/ Medical History: Denies: End Stage Renal Disease Malignancy Medical History: Reports: Brain Cancer - Lung cancer with brain metastases, Breast Cancer, 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 GI Medical History: Reports: Gastroesophageal Reflux Disease Denies: Cirrhosis, Hepatitis Musculoskeltal Medical History: Reports: Arthritis, Gout Skin Medical History: Denies: Eczema, Psoriasis Psychiatric Medical History: Reports: Dementia, Depression Denies: Bipolar Disorder Hematology: Reports: Anemia, Bleeding Tendencies Infectious Medical History: Reports: Clostridium Difficile Past Surgical History Past Surgical History: Reports: Cholecystectomy, Orthopedic Surgery - Foot surgery, Other - Bilateral cataract surgery Social History Smoking Status: Former Smoker Electronic Cigarette use?: No Frequency of Alcohol Use: None Hx Recreational Drug Use: No Drugs: None Hx Prescription Drug Abuse: No - Advance Directive Resuscitation Status: Full Code Family History Family History: Reviewed & Not Pertinent, COPD, Malignancy - Lung cancer Parental Family History Reviewed: No - No familial illnesses reported Children Family History Reviewed: NA Sibling(s) Family History Reviewed.: NA Medication/Allergy Home Medications: Famotidine [Pepcid 20 mg Tablet] 20 mg PO DAILY 09/19/19 Ipratropium/Albuterol Sulfate [Duoneb 3 ml Ampul] 1 vial NEB QID 09/19/19 Levothyroxine Sodium [Synthroid 0.05 mg Tablet] 0.1 mg PO Q6AM 09/19/19 Potassium Chloride [Klor-Con 10 Meq Tablet ER] 10 meq PO DAILY 09/19/19 Sertraline HCl [Zoloft 50 mg Tablet] 50 mg PO DAILY 09/19/19 Allergies/Adverse Reactions: azithromycin Allergy (Verified 08/17/19 11:19) cephalexin Allergy (Verified 08/17/19 11:19) Penicillins Allergy (Verified 08/17/19 11:19) amoxicillin [Amoxicillin] Adverse Reaction (Verified 08/17/19 11:19) visual hallucinations erythromycin base [Erythromycin Base] Adverse Reaction (Verified 08/17/19 11:19) visual hallucinations Potassium Clavulanate * [From Augmentin] Adverse Reaction (Verified 08/17/19 11:19) visual hallucinations Review of Systems Constitutional: PRESENT: as per HPI Eyes: PRESENT: as per HPI Ears: PRESENT: as per HPI Nose, Mouth, and Throat: PRESENT: as per HPI Cardiovascular: PRESENT: as per HPI Gastrointestinal: PRESENT: as per HPI Physical Exam Vital Signs: Temp Pulse Resp BP Pulse Ox 98.2 F 110 H 24 H 154/89 H 100 09/25/19 06:55 09/25/19 11:24 09/25/19 11:24 09/25/19 06:55 09/25/19 11:24 Intake & Output 09/24/19 09/25/19 09/26/19 06:59 06:59 06:59 Intake Total 2654 916 200 Output Total 1560 1575 300 Balance 604 -249 -100 Weight 78.8 kg 80.3 kg General appearance: PRESENT: cooperative, obese Head exam: PRESENT: atraumatic, normocephalic Eye exam: PRESENT: EOMI Mouth exam: PRESENT: moist Respiratory exam: PRESENT: symmetrical, unlabored Cardiovascular exam: PRESENT: RRR, +S1, +S2 GI/Abdominal exam: PRESENT: soft Rectal exam: PRESENT: deferred Neurological exam: PRESENT: alert, awake, oriented to person, oriented to place Psychiatric exam: PRESENT: appropriate affect Skin exam: PRESENT: intact Results Laboratory Results: 09/25/19 05:40 09/25/19 05:40 09/25/19 09/25/19 05:40 05:40 WBC 10.6 H RBC 2.64 L Hgb 8.8 L Hct 25.5 L MCV 97 MCH 33.2 MCHC 34.4 RDW 16.8 H Plt Count 324 Sodium 140.3 Potassium 4.1 Chloride 100 Carbon Dioxide 35 H Anion Gap 5 BUN 10 Creatinine 0.63 Est GFR ( Amer) > 60 Glucose 165 H Calcium 8.3 L 09/19/19 09:04 Blood Blood Culture (PCR) - Final Enterococcus Species Staphylococcus Aureus 09/19/19 09:04 Blood Blood Culture - Final Mrsa (Meth Resis Staph Aureus) Enterococcus Faecalis(Group D) 09/19/19 15:21 Blood Blood Culture - Final NO GROWTH IN 5 DAYS 09/20/19 06:15 Sputum Gram Stain - Final 09/20/19 06:15 Sputum Sputum Culture - Final Pseudomonas Aeruginosa Mrsa (Meth Resis Staph Aureus) Normal Jayshree Absent 09/19/19 09/19/19 09/20/19 08:10 13:31 06:18 Creatine Kinase 21 L CK-MB (CK-2) Troponin I 0.017 NT-Pro-B Natriuret Pep 1050 H 1060 H 09/20/19 09/20/19 09/20/19 06:18 12:43 12:43 Creatine Kinase 20 L CK-MB (CK-2) 1.48 1.83 Troponin I 0.018 0.030 NT-Pro-B Natriuret Pep 09/20/19 09/20/19 19:01 19:01 Creatine Kinase 24 L CK-MB (CK-2) 1.66 Troponin I 0.028 NT-Pro-B Natriuret Pep Impressions: Chest X-Ray 09/19/19 08:44 IMPRESSION: HEART ENLARGED WITHOUT FAILURE. NO OTHER SIGNIFICANT RADIOGRAPHIC FINDING IN THE CHEST. Assessment & Plan - Notes Notes: Persistent MRSA bacteremia Transesophageal echocardiogram was performed. Left ventricular ejection fraction is preserved Mild to moderate mitral regurgitation and mild tricuspid regurgitation were noted. There is no pericardial effusion. There was no vegetation on the visualized heart valves. The aortic valve, the mitral valve and the tricuspid valve were visualized fairly well. The pulmonic valve was not adequately visualized.
--- NOTE | 2019-09-25 18:43 | PDOC PROGRESS REPORT ---
Subjective Progress Note for:: 09/25/19 Subjective:: The patient is a 74-year-old female, well-known to our service, with a history of atrial fibrillation, CHF, CAD, [place], hypertension, COPD, chronic respiratory failure, sleep apnea, DM 2, hypothyroidism, lung cancer with brain metastasis, GERD, arthritis, gout, dementia, depression, with frequent admissions for COPD exacerbation with hypercapnia resulting in metabolic encephalopathy. The patient was seen on afternoon rounds following her DANELLE. She was found resting in bed, comfortably, on supplemental oxygen by nasal cannula. At this visit she is alert and oriented to self and place but not time or situation. She does remember me by name without needing reintroduction. She reports that she is feeling well today. Believes that she is here for another COPD e xacerbation and seems to have forgotten about our discussion yesterday regarding her MRSA bacteremia. She does tell me that her chest congestion and wheezing are approaching her baseline. She denies fever, chills, chest pain, palpitations, orthopnea, abdominal pain, nausea vomiting and diarrhea. She has no other questions or concerns at this time. No concerns per nursing. Reason For Visit: ALTERED MENTAL STATUS, HYPOXIA,COPD EXACERBATION Physical Exam Vital Signs: Temp Pulse Resp BP Pulse Ox 98.3 F 107 H 18 137/72 H 100 09/25/19 15:57 09/25/19 15:57 09/25/19 15:57 09/25/19 15:57 09/25/19 15:57 Intake & Output 09/24/19 09/25/19 09/26/19 06:59 06:59 06:59 Intake Total 2654 916 300 Output Total 4292 1595 550 Balance 604 -379 -250 Weight 78.8 kg 80.3 kg General appearance: PRESENT: no acute distress, cooperative, well-developed, w ell-nourished Head exam: PRESENT: atraumatic, normocephalic Eye exam: PRESENT: conjunctiva pink, EOMI, PERRLA. ABSENT: scleral icterus Mouth exam: PRESENT: moist, tongue midline Teeth exam: PRESENT: poor dentation Respiratory exam: PRESENT: prolonged expiratory phas, rhonchi, symmetrical, unlabored, wheezes, other - Supplemental oxygen by nasal cannula. ABSENT: rales Cardiovascular exam: PRESENT: RRR, +S1, +S2, systolic murmur. ABSENT: diastolic murmur, rubs Pulses: PRESENT: normal dorsalis pedis pul Vascular exam: PRESENT: normal capillary refill GI/Abdominal exam: PRESENT: normal bowel sounds, soft. ABSENT: distended, guarding, mass, organolmegaly, rebound, tenderness Rectal exam: PRESENT: deferred Gentrourinary exam: PRESENT: indwelling catheter Extremities exam: PRESENT: full ROM. ABSENT: calf tenderness, clubbing, pedal edema Neurological exam: PRESENT: alert, awake, oriented to person, oriented to place, CN II-XII grossly intact. ABSENT: oriented to time, oriented to situation, motor sensory deficit Psychiatric exam: PRESENT: appropriate affect, normal mood. ABSENT: homicidal ideation, suicidal ideation Skin exam: PRESENT: dry, intact, warm. ABSENT: cyanosis, rash Results Laboratory Results: 09/25/19 05:40 09/25/19 05:40 09/25/19 09/25/19 05:40 05:40 WBC 10.6 H RBC 2.64 L Hgb 8.8 L Hct 25.5 L MCV 97 MCH 33.2 MCHC 34.4 RDW 16.8 H Plt Count 324 Sodium 140.3 Potassium 4.1 Chloride 100 Carbon Dioxide 35 H Anion Gap 5 BUN 10 Creatinine 0.63 Est GFR ( Amer) > 60 Glucose 165 H Calcium 8.3 L 09/19/19 09:04 Blood Blood Culture (PCR) - Final Enterococcus Species Staphylococcus Aureus 09/19/19 09:04 Blood Blood Culture - Final Mrsa (Meth Resis Staph Aureus) Enterococcus Faecalis(Group D) 09/19/19 15:21 Blood Blood Culture - Final NO GROWTH IN 5 DAYS 09/19/19 09/19/19 09/20/19 08:10 13:31 06:18 Creatine Kinase 21 L CK-MB (CK-2) Troponin I 0.017 NT-Pro-B Natriuret Pep 1050 H 1060 H 09/20/19 09/20/19 09/20/19 06:18 12:43 12:43 Creatine Kinase 20 L CK-MB (CK-2) 1.48 1.83 Troponin I 0.018 0.030 NT-Pro-B Natriuret Pep 09/20/19 09/20/19 19:01 19:01 Creatine Kinase 24 L CK-MB (CK-2) 1.66 Troponin I 0.028 NT-Pro-B Natriuret Pep Impressions: Chest X-Ray 09/19/19 08:44 IMPRESSION: HEART ENLARGED WITHOUT FAILURE. NO OTHER SIGNIFICANT RADIOGRAPHIC FINDING IN THE CHEST. Assessment and Plan - Diagnosis (1) Bacteremia Is this a current diagnosis for this admission?: Yes Plan: Blood culture (09/19/2019; 2 of 4) positive for MRSA and enterococcus species IV vancomycin started 09/21/2019 Repeat blood cultures (09/24/2019) are negative at 24 hours DANELLE was negative for vegetations. Infectious diseases consulted; appreciate their recommendations. Vancomycin end date 10/23/2019 (2) Acute respiratory failure with hypercapnia Is this a current diagnosis for this admission?: Yes Plan: Acute on chronic respiratory failure with hypoxia and hypercapnia. Significantly improved. Now maintaining oxygen saturations on supplemental oxygen via nasal cannula while at rest. ABG (09/23/2019) shows compensated respiratory acidosis with CO2 of 76.1; at the highest her PCO2 has been. We will continue supplemental oxygen BiPAP as needed maintain saturations. Encourage BiPAP Continue scheduled nebulizer treatments. Continue IV Solu-Medrol. Mucinex twice daily. Incentive spirometer and flutter valve to bedside. (3) COPD exacerbation Is this a current diagnosis for this admission?: Yes Plan: Improved. Sputum culture shows MRSA and Pseudomonas. Continues on IV vancomycin. We will start Cipro for pseudomonal coverage Remaining management as above. (4) Chronic anemia Is this a current diagnosis for this admission?: Yes Plan: Stable; at baseline hemoglobin of 8.8. No evidence of active bleeding at this time. Continue multivitamin and iron supplement. (5) Coronary artery disease Qualifiers: Coronary Disease-Associated Artery/Lesion type: [place] artery [place] vs. transplanted heart: [place] heart Associated angina: without angina Qualified Code(s): I25.10 - Atherosclerotic heart disease of [place] coronary artery without angina pectoris Is this a current diagnosis for this admission?: Yes (6) Debility and deconditioning Is this a current diagnosis for this admission?: Yes Plan: PT/OT consulted. Likely to discharge to SNF. Discharge planning is consulted. (7) Dementia Qualifiers: Dementia type: unspecified type Dementia behavioral disturbance: without be havioral disturbance Qualified Code(s): F03.90 - Unspecified dementia without behavioral disturbance Is this a current diagnosis for this admission?: Yes Plan: Supportive care. Avoid narcotic medications. (8) Hypothyroid Is this a current diagnosis for this admission?: Yes Plan: Continue home dose levothyroxine. - Time Time Spent with patient: 35 or more minutes Medications reviewed and adjusted accordingly: Yes Anticipated discharge: SNF Within: Other - 09/30/19; following PICC line placement
[2019-09-26 05:07] LABS: HEMATOCRIT 25.9 % (36.0-47.0); MEAN CORPUSCULAR HEMOGLOBIN 33.3 pg (27.0-33.4); MEAN CORPUSCULAR HGB CONC 34.7 g/dL (32.0-36.0); MEAN CORPUSCULAR VOLUME 96 fl (80-97); PLATELET COUNT 326 10^3/uL (150-450); RED BLOOD COUNT 2.69 10^6/uL (3.72-5.28)
[2019-09-26 05:32] LABS: BLOOD UREA NITROGEN 10 mg/dL (7-20); CALCIUM 8.4 mg/dL (8.4-10.2); GLUCOSE 178 mg/dL (75-110); POTASSIUM 3.8 mmol/L (3.6-5.0)
[2019-09-26 05:37] LABS: CARBON DIOXIDE 38 mmol/L (22-30); CHLORIDE 98 mmol/L (98-107)
[2019-09-26 05:44] LABS: ANION GAP 3 (5-19)
[2019-09-26] MEDS: DIPHENHYDRAMINE HCL 50 MG/ML VIAL IV SCH ×3 (06:42→22:56)
[2019-09-26] MEDS: NORMAL SALINE 1000 ML 1,000 ML IV PRN (06:47)
[2019-09-26] MEDS: LEVOTHYROXINE SODIUM 0.05 MG TABLET PO SCH (06:47)
[2019-09-26] MEDS: IPRATROPIUM/ALBUTEROL 0.5-2.5 MG/3 ML AMPUL NEB SCH ×4 (08:05→20:34)
--- NOTE | 2019-09-26 08:56 | XCELERA REPORT ---
Study ID: [id number] [address] [id number] Transesophageal Echocardiogram Report Name: TRENTON MCCOY Age: 74 yrs Gender: Female : 1945 Patient Status: Inpatient Patient Location: [facility]^A Study Date: 09/25/2019 12:14 PM History: Bacteremia Height: 66 in Weight: 154 lb BSA: 1.8 m2 Reason For Study: positive blood cultures Ordering Physician: SARA ROTH Performed By: Jaquelin Mcdaniel Interpretation Summary There is no evidence of a mass or vegetation. This does not rule out endocarditis. Left ventricular systolic function is normal. Ejection Fraction = >55%. The right ventricle is normal in size and function. There is mild to moderate mitral regurgitation. There is mild tricuspid regurgitation. There is no pericardial effusion. There is no evidence of a mass or vegetation. This does not rule out endocarditis. Procedure A complete two-dimensional transesophageal echocardiogram was performed (2D, spectral and color flow Doppler). Informed consent for Transesophageal Echocardiogram, and use of a contrast agent as needed, was obtained prior to the procedure. The patient was brought to the OR in a fasting state. An intravenous line was placed. A topical anesthetic agent was used for oropharangeal anesthesia. A bite block was inserted. IV conscious sedation was administered using per Anesthesia. The patient's vital signs, including blood pressure, heart rate, pulse oximetry and cardiac rhythm were monitored thoughout the procedure. A multifrequency, mutliplane transesophageal echocardiographic endoscope was inserted and manipulated in the standard fashion to achieve multiplane views. The transesophageal probe was passed without difficulty. The usual views were obtained; basal, mid-esophageal, transgastric and aortic views. The patient tolerated the procedure well without evidence of orophangeal or esophageal trauma. Subsequent to all the images being obtained the probe was removed with out trauma. Left Ventricle The left ventricle is grossly normal size. There is no thrombus. There is mild concentric left ventricular hypertrophy. Left ventricular systolic function is normal. Ejection Fraction = >55%. No regional wall motion abnormalities noted. Right Ventricle The right ventricle is normal in size and function. Atria The interatrial septum is intact with no evidence for an atrial septal defect. The left atrium is mildly dilated. No left atrial mass or thrombus visualized. Right atrial size is normal. Mitral Valve The mitral valve is grossly normal. There is no vegetation seen on the mitral valve. There is no mitral valve stenosis. There is mild to moderate mitral regurgitation. Tricuspid Valve The tricuspid valve is not well visualized, but is grossly normal. There is no tricuspid valve vegetation. There is mild tricuspid regurgitation. Aortic Valve The aortic valve is trileaflet. The aortic valve is normal in structure and function. There is no aortic valvular vegetation. No hemodynamically significant valvular aortic stenosis. No aortic regurgitation is present. Pulmonic Valve The pulmonic valve is not well visualized. Arteries The aortic root is normal size. Mild atherosclerotic plaque(s) in the ascending aorta. Pericardium There is no pericardial effusion. : SARA ROTH Anil
[2019-09-26] MEDS: FAMOTIDINE 20 MG TABLET PO SCH ×2 (10:06→22:57)
[2019-09-26] MEDS: CIPROFLOXACIN 400 MG/D5W RTU 400 MG/200 ML RTUPB IV SCH (10:06)
[2019-09-26] MEDS: POTASSIUM CHLORIDE 10 MEQ TABLET.ER PO SCH (10:07)
[2019-09-26] MEDS: FERROUS SULFATE 325 MG TABLET PO SCH (10:07)
[2019-09-26] MEDS: GUAIFENESIN 600 MG TABLET.SA PO SCH ×2 (10:07→22:57)
[2019-09-26] MEDS: DOCUSATE SODIUM 100 MG CAPSULE PO SCH (10:07)
[2019-09-26] MEDS: METHYLPREDNISOLONE INJ 40 MG/1 ML SDV IV SCH ×2 (10:08→22:57)
[2019-09-26] MEDS: ENOXAPARIN SODIUM INJ 40 MG/0.4 ML DISP.SYRIN SUBCUT SCH (10:08)
[2019-09-26] MEDS: FUROSEMIDE INJ/PF 20 MG/2 ML SDV IV SCH (10:08)
[2019-09-26] MEDS: MULTIVITAMIN TABLET PO SCH (10:09)
[2019-09-26] MEDS: VANCOMYCIN HCL 750 MG in DEXTROSE 5%-WATER 250 ML IV SCH ×2 (10:09→22:57)
[2019-09-26 10:33] LABS: ARTERIAL BLOOD BASE EXCESS 12.6 mmol/L; ARTERIAL BLOOD FIO2 5L; ARTERIAL BLOOD HCO3 37.9 mmol/L (20-24); ARTERIAL BLOOD O2 SATURATION 88.4 % (94-98); ARTERIAL BLOOD PCO2 53.1 mmHg (35-45); ARTERIAL BLOOD PH 7.47 (7.35-7.45); ARTERIAL BLOOD PO2 52.4 mmHg (80-100); ARTERIAL BLOOD TOTAL CO2 39.5 mmol/L (21-25)
--- NOTE | 2019-09-26 17:24 | PDOC PROGRESS REPORT ---
Subjective Progress Note for:: 09/26/19 Subjective:: The patient is a 74-year-old female, well-known to our service, with a history of atrial fibrillation, CHF, CAD, [place], hypertension, COPD, chronic respiratory failure, sleep apnea, DM 2, hypothyroidism, lung cancer with brain metastasis, GERD, arthritis, gout, dementia, depression, with frequent admissions for COPD exacerbation with hypercapnia resulting in metabolic encephalopathy. The patient was seen on afternoon rounds. She was found resting in bed, comfortably, on supplemental oxygen by nasal cannula. She was sleeping soundly, but woke easily when I said her name. She is orientated to self, place, and situation today. She reports her breathing "is just fine," and denies any new physical complaints. She specifically denies fever, chest pain, palpitations, abdominal pain, nausea vomiting and diarrhea. She has no other questions or concerns at this time. No concerns per nursing. Reason For Visit: ALTERED MENTAL STATUS, HYPOXIA,COPD EXACERBATION Physical Exam Vital Signs: Temp Pulse Resp BP Pulse Ox 97.6 F 110 H 18 156/75 H 97 09/26/19 07:10 09/26/19 14:00 09/26/19 11:44 09/26/19 07:10 09/26/19 11:44 Intake & Output 09/25/19 09/26/19 09/27/19 06:59 06:59 06:59 Intake Total 916 2360 150 Output Total 1575 2200 400 Balance -659 160 -250 Weight 80.3 kg 79.2 kg General appearance: PRESENT: no acute distress, cooperative, well-developed, well-nourished Head exam: PRESENT: atraumatic, normocephalic Eye exam: PRESENT: conjunctiva pink, EOMI, PERRLA. ABSENT: scleral icterus Mouth exam: PRESENT: moist, tongue midline Teeth exam: PRESENT: edentulous - dentures Respiratory exam: PRESENT: rhonchi, symmetrical, unlabored, wheezes, other - supplemental oxygen via NC; frequently refuses BiPAP. ABSENT: rales Cardiovascular exam: PRESENT: RRR, +S1, +S2, systolic murmur. ABSENT: diastolic murmur, rubs Pulses: PRESENT: normal dorsalis pedis pul Vascular exam: PRESENT: normal capillary refill GI/Abdominal exam: PRESENT: normal bowel sounds, soft. ABSENT: distended, guarding, mass, organolmegaly, rebound, tenderness Rectal exam: PRESENT: deferred Extremities exam: PRESENT: full ROM, +2 edema - RUE w/ bullae r/t IV infiltration; improved w/ elevation. ABSENT: calf tenderness, clubbing, pedal edema Neurological exam: PRESENT: alert, awake, oriented to person, oriented to place, oriented to situation, CN II-XII grossly intact, other - intermittent mild confusion. ABSENT: motor sensory deficit Psychiatric exam: PRESENT: appropriate affect, normal mood. ABSENT: homicidal ideation, suicidal ideation Skin exam: PRESENT: dry, intact, warm. ABSENT: cyanosis, rash Results Laboratory Results: 09/26/19 04:33 09/26/19 04:33 09/26/19 09/26/19 09/26/19 04:33 04:33 10:23 WBC 9.0 RBC 2.69 L Hgb 9.0 L Hct 25.9 L MCV 96 MCH 33.3 MCHC 34.7 RDW 17.0 H Plt Count 326 Carbonic Acid 1.60 H HCO3/H2CO3 Ratio 23:1 ABG pH 7.47 H ABG pCO2 53.1 H ABG pO2 52.4 L ABG HCO3 37.9 H ABG O2 Saturation 88.4 L ABG Base Excess 12.6 FiO2 5L Sodium 139.1 Potassium 3.8 Chloride 98 Carbon Dioxide 38 H Anion Gap 3 L BUN 10 Creatinine 0.62 Est GFR ( Amer) > 60 Glucose 178 H Calcium 8.4 09/19/19 09/19/19 09/20/19 08:10 13:31 06:18 Creatine Kinase 21 L CK-MB (CK-2) Troponin I 0.017 NT-Pro-B Natriuret Pep 1050 H 1060 H 09/20/19 09/20/19 09/20/19 06:18 12:43 12:43 Creatine Kinase 20 L CK-MB (CK-2) 1.48 1.83 Troponin I 0.018 0.030 NT-Pro-B Natriuret Pep 09/20/19 09/20/19 19:01 19:01 Creatine Kinase 24 L CK-MB (CK-2) 1.66 Troponin I 0.028 NT-Pro-B Natriuret Pep Impressions: Chest X-Ray 02/20/20 08:44 IMPRESSION: HEART ENLARGED WITHOUT FAILURE. NO OTHER SIGNIFICANT RADIOGRAPHIC FINDING IN THE CHEST. Assessment and Plan - Diagnosis (1) Bacteremia Is this a current diagnosis for this admission?: Yes Plan: Blood culture (09/19/2019; 2 of 4) positive for MRSA and enterococcus species IV vancomycin started 09/21/2019 Repeat blood cultures (09/24/2019) are negative at 48 hours DANELLE was negative for vegetations. Infectious diseases consulted; appreciate their recommendations. Vancomycin end date 10/23/2019 (2) Acute respiratory failure with hypercapnia Is this a current diagnosis for this admission?: Yes Plan: Acute on chronic respiratory failure with hypoxia and hypercapnia. Significantly improved. Now maintaining oxygen saturations on supplemental oxygen via nasal cannula while at rest. ABG (09/23/2019) shows compensated respiratory acidosis with CO2 of 76.1; at the highest her PCO2 has been. ABG (09/26/19) improved; pCOs 53.1 We will continue supplemental oxygen BiPAP as needed maintain saturations. Encourage BiPAP Continue scheduled nebulizer treatments. Continue IV Solu-Medrol; begin weaning tomorrow. Mucinex twice daily. Incentive spirometer and flutter valve to bedside. (3) COPD exacerbation Is this a current diagnosis for this admission?: Yes Plan: Improved. Sputum culture shows MRSA and Pseudomonas. Continues on IV vancomycin. Continue Cipro for pseudomonal coverage Remaining management as above. (4) Chronic anemia Is this a current diagnosis for this admission?: Yes Plan: Stable; at baseline hemoglobin of 8.8. No evidence of active bleeding at this time. Continue multivitamin and iron supplement. (5) Coronary artery disease Qualifiers: Coronary Disease-Associated Artery/Lesion type: [place] artery [place] vs. tr ansplanted heart: [place] Associated angina: without angina Qualified Code(s): I25.10 - Atherosclerotic heart disease of [place] coronary artery without angina pectoris Is this a current diagnosis for this admission?: Yes (6) Debility and deconditioning Is this a current diagnosis for this admission?: Yes Plan: PT/OT consulted. Likely to discharge to SNF. Discharge planning is consulted. (7) Dementia Qualifiers: Dementia type: unspecified type Dementia behavioral disturbance: without behavioral disturbance Qualified Code(s): F03.90 - Unspecified dementia without behavioral disturbance Is this a current diagnosis for this admission?: Yes Plan: Supportive care. Avoid narcotic medications. (8) Hypothyroid Is this a current diagnosis for this admission?: Yes Plan: Continue home dose levothyroxine. - Time Time Spent with patient: 25-34 minutes Medications reviewed and adjusted accordingly: Yes Anticipated discharge: SNF Within: within 72 hours
[2019-09-27] MEDS: CIPROFLOXACIN 400 MG/D5W RTU 400 MG/200 ML RTUPB IV SCH ×2 (02:30→17:37)
[2019-09-27] MEDS: VANCOMYCIN HCL 750 MG in DEXTROSE 5%-WATER 250 ML IV SCH ×2 (03:44→17:37)
[2019-09-27] MEDS ORDERED: VANCOMYCIN HCL 750 MG in DEXTROSE 5%-WATER 250 ML IV ONE (03:45)
[2019-09-27 05:39] LABS: BLOOD UREA NITROGEN 12 mg/dL (7-20); CHLORIDE 97 mmol/L (98-107); GLUCOSE 150 mg/dL (75-110)
[2019-09-27 05:47] LABS: ANION GAP 5 (5-19); CARBON DIOXIDE 39 mmol/L (22-30)
[2019-09-27 05:52] LABS: CALCIUM 8.2 mg/dL (8.4-10.2)
[2019-09-27] MEDS: POTASSIUM CHLORIDE 20 MEQ/50 ML RTU IV SCH ×2 (06:45→09:08)
[2019-09-27] MEDS: LEVOTHYROXINE SODIUM 0.05 MG TABLET PO SCH (07:45)
[2019-09-27] MEDS: DIPHENHYDRAMINE HCL 50 MG/ML VIAL IV SCH ×3 (07:45→21:19)
[2019-09-27] MEDS: IPRATROPIUM/ALBUTEROL 0.5-2.5 MG/3 ML AMPUL NEB SCH ×4 (08:21→20:03)
[2019-09-27] MEDS: DOCUSATE SODIUM 100 MG CAPSULE PO SCH (09:08)
[2019-09-27] MEDS: FUROSEMIDE INJ/PF 20 MG/2 ML SDV IV SCH (09:08)
[2019-09-27] MEDS: FERROUS SULFATE 325 MG TABLET PO SCH (09:08)
[2019-09-27] MEDS: MULTIVITAMIN TABLET PO SCH (09:08)
[2019-09-27] MEDS: POTASSIUM CHLORIDE 10 MEQ TABLET.ER PO SCH (09:08)
[2019-09-27] MEDS: GUAIFENESIN 600 MG TABLET.SA PO SCH ×2 (09:08→21:31)
[2019-09-27] MEDS: FAMOTIDINE 20 MG TABLET PO SCH ×2 (09:08→21:31)
[2019-09-27] MEDS: METHYLPREDNISOLONE INJ 40 MG/1 ML SDV IV SCH ×2 (09:08→21:30)
[2019-09-27] MEDS: ENOXAPARIN SODIUM INJ 40 MG/0.4 ML DISP.SYRIN SUBCUT SCH (09:09)
--- NOTE | 2019-09-27 13:23 | PDOC PROGRESS REPORT ---
Subjective Progress Note for:: 09/27/19 Subjective:: The patient is a 74-year-old female, well-known to our service, with a history of atrial fibrillation, CHF, CAD, [place], hypertension, COPD, chronic respiratory failure, sleep apnea, DM 2, hypothyroidism, lung cancer with brain metastasis, GERD, arthritis, gout, dementia, depression, with frequent admissions for COPD exacerbation with hypercapnia resulting in metabolic encephalopathy. The patient was seen on morning rounds. She was found resting in bed, comfortably, on supplemental oxygen by BiPAP. She was sleeping, but woke easily when I said her name. She is A&Ox4 today, but very fatigued and quickly falls back to sleep. She specifically denies fever, chest pain, palpitations, dyspnea, cough, abdominal pain, nausea vomiting and diarrhea. She has no other questions or concerns at this time. No concerns per nursing. Reason For Visit: ALTERED MENTAL STATUS, HYPOXIA,COPD EXACERBATION Physical Exam Vital Signs: Temp Pulse Resp BP Pulse Ox 97.6 F 95 18 103/68 96 09/26/19 15:07 09/27/19 12:00 09/27/19 12:00 09/26/19 15:07 09/27/19 12:00 Intake & Output 09/26/19 09/27/19 09/28/19 06:59 06:59 06:59 Intake Total 2360 900 50 Output Total 2200 1600 Balance 160 -700 50 Weight 79.2 kg 76.4 kg General appearance: PRESENT: no acute distress, cooperative, disheveled, well- developed, well-nourished Head exam: PRESENT: atraumatic, normocephalic Eye exam: PRESENT: conjunctiva pink, EOMI, PERRLA. ABSENT: scleral icterus Mouth exam: PRESENT: moist, tongue midline Teeth exam: PRESENT: edentulous Respiratory exam: PRESENT: prolonged expiratory phas, rhonchi - scant, symme trical, unlabored, other - BiPAP. ABSENT: rales, wheezes Cardiovascular exam: PRESENT: RRR, +S1, +S2, systolic murmur. ABSENT: diastolic murmur, rubs Pulses: PRESENT: normal dorsalis pedis pul Vascular exam: PRESENT: normal capillary refill GI/Abdominal exam: PRESENT: normal bowel sounds, soft. ABSENT: distended, guarding, mass, organolmegaly, rebound, tenderness Rectal exam: PRESENT: deferred Gentrourinary exam: PRESENT: indwelling catheter Extremities exam: PRESENT: full ROM. ABSENT: calf tenderness, clubbing, pedal edema Neurological exam: PRESENT: alert, awake, oriented to person, oriented to place, oriented to time, oriented to situation, CN II-XII grossly intact, other - fatigued. ABSENT: motor sensory deficit Psychiatric exam: PRESENT: appropriate affect, normal mood. ABSENT: homicidal ideation, suicidal ideation Skin exam: PRESENT: dry, intact, warm. ABSENT: cyanosis, rash Results Laboratory Results: 09/26/19 04:33 09/27/19 04:41 09/27/19 09/27/19 04:41 04:41 Sodium 141.3 Potassium 3.0 L* Chloride 97 L Carbon Dioxide 39 H Anion Gap 5 BUN 12 Creatinine 0.62 Est GFR ( Amer) > 60 Glucose 150 H Calcium 8.2 L Magnesium 2.0 09/19/19 09/19/19 09/20/19 08:10 13:31 06:18 Creatine Kinase 21 L CK-MB (CK-2) Troponin I 0.017 NT-Pro-B Natriuret Pep 1050 H 1060 H 09/20/19 09/20/19 09/20/19 06:18 12:43 12:43 Creatine Kinase 20 L CK-MB (CK-2) 1.48 1.83 Troponin I 0.018 0.030 NT-Pro-B Natriuret Pep 09/20/19 09/20/19 19:01 19:01 Creatine Kinase 24 L CK-MB (CK-2) 1.66 Troponin I 0.028 NT-Pro-B Natriuret Pep Impressions: Chest X-Ray 09/19/19 08:44 IMPRESSION: HEART ENLARGED WITHOUT FAILURE. NO OTHER SIGNIFICANT RADIOGRAPHIC FINDING IN THE CHEST. Assessment and Plan - Diagnosis (1) Bacteremia Is this a current diagnosis for this admission?: Yes Plan: Blood culture (09/19/2019; 2 of 4) positive for MRSA and enterococcus species IV vancomycin started 09/21/2019 Repeat blood cultures (09/24/2019) are negative at 72 hours DANELLE was negative for vegetations. Infectious diseases consulted; appreciate their recommendations. Vancomycin end date 10/23/2019 Will get PICC line today (2) Acute respiratory failure with hypercapnia Is this a current diagnosis for this admission?: Yes Plan: Acute on chronic respiratory failure with hypoxia and hypercapnia. Significantly improved. Now maintaining oxygen saturations on supplemental oxygen via nasal cannula while at rest. ABG (09/23/2019) shows compensated respiratory acidosis with CO2 of 76.1; at the highest her PCO2 has been. ABG (09/26/19) improved; pCOs 53.1 We will continue supplemental oxygen BiPAP as needed maintain saturations. Encourage BiPAP Continue scheduled nebulizer treatments. Continue IV Solu-Medrol; begin weaning today Mucinex twice daily. Incentive spirometer and flutter valve to bedside. (3) COPD exacerbation Is this a current diagnosis for this admission?: Yes Plan: Improved. Sputum culture shows MRSA and Pseudomonas. Continues on IV vancomycin. Continue Cipro for pseudomonal coverage; Day #3 Remaining management as above. (4) Chronic anemia Is this a current diagnosis for this admission?: Yes Plan: Stable; at baseline hemoglobin of 9.0 No evidence of active bleeding at this time. Continue multivitamin and iron supplement. (5) Coronary artery disease Qualifiers: Coronary Disease-Associated Artery/Lesion type: [place] artery [place] vs. transplanted heart: [place] heart Associated angina: without angina Qualified Code(s): I25.10 - Atherosclerotic heart disease of [place] coronary artery without angina pectoris Is this a current diagnosis for this admission?: Yes (6) Debility and deconditioning Is this a current diagnosis for this admission?: Yes Plan: PT/OT consulted. Likely to discharge to SNF. Discharge planning is consulted. (7) Dementia Qualifiers: Dementia type: unspecified type Dementia behavioral disturbance: without behavioral disturbance Qualified Code(s): F03.90 - Unspecified dementia without behavioral disturbance Is this a current diagnosis for this admission?: Yes Plan: Supportive care. Avoid narcotic medications. (8) Hypothyroid Is this a current diagnosis for this admission?: Yes Plan: Continue home dose levothyroxine. - Time Time Spent with patient: 25-34 minutes Medications reviewed and adjusted accordingly: Yes Anticipated discharge: SNF Within: within 24 hours, when bed available
--- NOTE | 2019-09-27 16:39 | RADIOLOGY REPORT (SQ) ---
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 FLUOROSCOPY TIME: 1 minutes 9 seconds 2 images saved to PACS. TECHNIQUE: Fluoroscopic and ultrasound guided PICC placement. LIMITATIONS: None. PROCEDURE: After written consent and assessment were obtained, the patient was brought into the fluo roscopy room and placed supine on the table. Ultrasound evaluation of potential access sites were per formed. After successfully identifying a patent left basilic vein, the left arm was prepped and drape d in a sterile fashion along with the ultrasound probe. The entry site was anesthetized with 1% lidoc yuly. A 21 gauge 7 cm needle was advanced through the skin and into the basilic vein under live ultra sound guidance. An ultrasound image was saved to PACS confirming access site. A .018 guide wire was then inserted through the needle and into the venous system. The needle was then removed and an 11 b lade scalpel was used to make a 1cm skin incision. A 5 fr peel-away sheath was advanced over the wir e and into the venous system. A measurement was then made using the existing wire and live fluoroscop ic guidance. The wire was then removed and trimmed. The PICC was advanced through the peel-away sheat h and into the venous system. The peel-away sheath was removed and the catheter was adhered to the pa tients arm with a stat lock. The catheter was then aspirated and flushed and a sterile bandage was pl aced over the access site. A fluoroscopic spot image was saved to PACS confirming the catheter tip w ithin the superior vena cava. IMPRESSION: SUCCESSFUL PLACEMENT OF A 5 FR DUAL LUMEN 46 CM PICC IN THE LEFT BASILIC VEIN. COMMENT: Patient medication list reviewed: Yes- Quality ID# [id number]:Eligible professional attests to doc umenting in the medical record they obtained, updated, or reviewed the patient's current medications. . Quality ID 145: Final reports for procedures using fluoroscopy that document radiation exposure ricardo diane, or exposure time and number of fluorographic images (if radiation exposure indices are not avail able) Quality ID #76: The patient was prepped and draped using maximum sterile barrier technique including cap, mask, sterile gown, sterile gloves, a large sterile sheet, hand hygiene, and 2% Chlorhexidine fo r cutaneous antisepsis. When ultrasound is used, sterile ultrasound techniques are followed requiring sterile gel and sterile probes. TECHNICAL DOCUMENTATION: JOB ID: [id number] 2010 [employer]- All Rights Reserved rev-12/15 Reading location - IP/workstation name: [email or web address]
--- NOTE | 2019-09-27 16:39 | RADIOLOGY REPORT (SQ) ---
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 FLUOROSCOPY TIME: 1 minutes 9 seconds 2 images saved to PACS. TECHNIQUE: Fluoroscopic and ultrasound guided PICC placement. LIMITATIONS: None. PROCEDURE: After written consent and assessment were obtained, the patient was brought into the fluo roscopy room and placed supine on the table. Ultrasound evaluation of potential access sites were per formed. After successfully identifying a patent left basilic vein, the left arm was prepped and drape d in a sterile fashion along with the ultrasound probe. The entry site was anesthetized with 1% lidoc yuly. A 21 gauge 7 cm needle was advanced through the skin and into the basilic vein under live ultra sound guidance. An ultrasound image was saved to PACS confirming access site. A .018 guide wire was then inserted through the needle and into the venous system. The needle was then removed and an 11 b lade scalpel was used to make a 1cm skin incision. A 5 fr peel-away sheath was advanced over the wir e and into the venous system. A measurement was then made using the existing wire and live fluoroscop ic guidance. The wire was then removed and trimmed. The PICC was advanced through the peel-away sheat h and into the venous system. The peel-away sheath was removed and the catheter was adhered to the pa tients arm with a stat lock. The catheter was then aspirated and flushed and a sterile bandage was pl aced over the access site. A fluoroscopic spot image was saved to PACS confirming the catheter tip w ithin the superior vena cava. IMPRESSION: SUCCESSFUL PLACEMENT OF A 5 FR DUAL LUMEN 46 CM PICC IN THE LEFT BASILIC VEIN. COMMENT: Patient medication list reviewed: Yes- Quality ID# [id number]:Eligible professional attests to doc umenting in the medical record they obtained, updated, or reviewed the patient's current medications. . Quality ID 145: Final reports for procedures using fluoroscopy that document radiation exposure ricardo diane, or exposure time and number of fluorographic images (if radiation exposure indices are not avail able) Quality ID #76: The patient was prepped and draped using maximum sterile barrier technique including cap, mask, sterile gown, sterile gloves, a large sterile sheet, hand hygiene, and 2% Chlorhexidine fo r cutaneous antisepsis. When ultrasound is used, sterile ultrasound techniques are followed requiring sterile gel and sterile probes. TECHNICAL DOCUMENTATION: JOB ID: [id number] 2010 [employer] ([employer] All Rights Reserved rev-12/15 Reading location - IP/workstation name: [email or web address]
[2019-09-28] MEDS: VANCOMYCIN HCL 750 MG in DEXTROSE 5%-WATER 250 ML IV SCH ×2 (06:01→17:07)
[2019-09-28] MEDS: CIPROFLOXACIN 400 MG/D5W RTU 400 MG/200 ML RTUPB IV SCH ×2 (06:01→17:07)
[2019-09-28] MEDS: DIPHENHYDRAMINE HCL 50 MG/ML VIAL IV SCH ×3 (06:02→21:27)
[2019-09-28] MEDS: LEVOTHYROXINE SODIUM 0.05 MG TABLET PO SCH (06:02)
[2019-09-28 06:36] LABS: MEAN CORPUSCULAR HEMOGLOBIN 32.2 pg (27.0-33.4); MEAN CORPUSCULAR HGB CONC 32.8 g/dL (32.0-36.0); MEAN CORPUSCULAR VOLUME 98 fl (80-97); PLATELET COUNT 280 10^3/uL (150-450); RED BLOOD COUNT 2.44 10^6/uL (3.72-5.28); RED CELL DISTRIBUTION WIDTH 17.5 % (11.5-14.0); WHITE BLOOD COUNT 7.5 10^3/uL (4.0-10.5)
[2019-09-28 06:53] LABS: HEMOGLOBIN 7.9 g/dL (12.0-15.5)
[2019-09-28 07:20] LABS: BLOOD UREA NITROGEN 12 mg/dL (7-20); CALCIUM 7.8 mg/dL (8.4-10.2); CHLORIDE 98 mmol/L (98-107); GLUCOSE 128 mg/dL (75-110); POTASSIUM 3.4 mmol/L (3.6-5.0)
[2019-09-28] MEDS: IPRATROPIUM/ALBUTEROL 0.5-2.5 MG/3 ML AMPUL NEB SCH ×4 (07:37→19:34)
[2019-09-28 07:42] LABS: ANION GAP 2 (5-19)
[2019-09-28 07:43] LABS: CARBON DIOXIDE 41 mmol/L (22-30)
[2019-09-28] MEDS: MULTIVITAMIN TABLET PO SCH (09:38)
[2019-09-28] MEDS: GUAIFENESIN 600 MG TABLET.SA PO SCH ×2 (09:38→21:30)
[2019-09-28] MEDS: FERROUS SULFATE 325 MG TABLET PO SCH (09:38)
[2019-09-28] MEDS: DOCUSATE SODIUM 100 MG CAPSULE PO SCH (09:38)
[2019-09-28] MEDS: FAMOTIDINE 20 MG TABLET PO SCH ×2 (09:38→21:30)
[2019-09-28] MEDS: POTASSIUM CHLORIDE 10 MEQ TABLET.ER PO SCH (09:39)
[2019-09-28] MEDS: FUROSEMIDE INJ/PF 20 MG/2 ML SDV IV SCH (09:39)
[2019-09-28] MEDS: METHYLPREDNISOLONE INJ 40 MG/1 ML SDV IV SCH ×2 (09:39→21:30)
[2019-09-28] MEDS: ENOXAPARIN SODIUM INJ 40 MG/0.4 ML DISP.SYRIN SUBCUT SCH (09:39)
[2019-09-28 10:48] LABS: HEMATOCRIT 26.6 % (36.0-47.0); HEMOGLOBIN 8.8 g/dL (12.0-15.5); MEAN CORPUSCULAR HGB CONC 33.1 g/dL (32.0-36.0); MEAN CORPUSCULAR VOLUME 97 fl (80-97); PLATELET COUNT 287 10^3/uL (150-450); RED BLOOD COUNT 2.75 10^6/uL (3.72-5.28); RED CELL DISTRIBUTION WIDTH 17.4 % (11.5-14.0); WHITE BLOOD COUNT 7.2 10^3/uL (4.0-10.5)
[2019-09-28] MEDS ORDERED: POTASSIUM CHLORIDE 10 MEQ TABLET.ER PO ONE (12:33)
--- NOTE | 2019-09-28 12:49 | PDOC PROGRESS REPORT ---
Subjective Progress Note for:: 09/28/19 Subjective:: The patient is a 74-year-old female, well-known to our service, with a history of atrial fibrillation, CHF, CAD, [place], hypertension, COPD, chronic respiratory failure, sleep apnea, DM 2, hypothyroidism, lung cancer with brain metastasis, GERD, arthritis, gout, dementia, depression, with frequent admissions for COPD exacerbation with hypercapnia resulting in metabolic encephalopathy. The patient was seen on morning rounds. She was found resting in bed, comfortably, on supplemental oxygen by BiPAP. She was sleeping, but woke easily when I said her name. She is A&O to self and place today, but very fatigued and quickly falls back to sleep. She specifically denies fever, chest pain, dyspnea, cough, abdominal pain, nausea vomiting and diarrhea. She has no questions or concerns at this time. No concerns per nursing. Reason For Visit: ALTERED MENTAL STATUS, HYPOXIA,COPD EXACERBATION Physical Exam Vital Signs: Temp Pulse Resp BP Pulse Ox 97.9 F 89 15 129/80 H 97 09/28/19 11:38 09/28/19 11:38 09/28/19 11:38 09/28/19 11:38 09/28/19 11:38 Intake & Output 09/27/19 09/28/19 09/29/19 06:59 06:59 06:59 Intake Total 1100 1040 200 Output Total 1600 2600 Balance -500 -1560 200 Weight 76.4 kg 67.3 kg General appearance: PRESENT: no acute distress, cooperative, well-developed, well-nourished Head exam: PRESENT: atraumatic, normocephalic Eye exam: PRESENT: conjunctiva pink, EOMI, PERRLA. ABSENT: scleral icterus Mouth exam: PRESENT: moist, tongue midline Teeth exam: PRESENT: edentulous Respiratory exam: PRESENT: prolonged expiratory phas, rhonchi, symmetrical, unlabored, wheezes, other - BiPAP. ABSENT: rales Cardiovascular exam: PRESENT: RRR, +S1, +S2. ABSENT: diastolic murmur, rubs, systolic murmur Pulses: PRESENT: normal dorsalis pedis pul Vascular exam: PRESENT: normal capillary refill GI/Abdominal exam: PRESENT: normal bowel sounds, soft. ABSENT: distended, guarding, mass, organolmegaly, rebound, tenderness Rectal exam: PRESENT: deferred Gentrourinary exam: PRESENT: indwelling catheter Extremities exam: PRESENT: full ROM. ABSENT: calf tenderness, clubbing, pedal edema Neurological exam: PRESENT: alert, awake, oriented to person, oriented to place, CN II-XII grossly intact. ABSENT: motor sensory deficit Psychiatric exam: PRESENT: appropriate affect, normal mood. ABSENT: homicidal ideation, suicidal ideation Skin exam: PRESENT: dry, intact, warm. ABSENT: cyanosis, rash Results Laboratory Results: 09/28/19 10:30 09/28/19 06:01 09/28/19 09/28/19 09/28/19 06:01 06:01 10:30 WBC 7.5 7.2 RBC 2.44 L 2.75 L Hgb 7.9 L 8.8 L Hct 24.0 L 26.6 L MCV 98 H 97 MCH 32.2 32.0 MCHC 32.8 33.1 RDW 17.5 H 17.4 H Plt Count 280 287 Sodium 140.7 Potassium 3.4 L Chloride 98 Carbon Dioxide 41 H* Anion Gap 2 L BUN 12 Creatinine 0.60 Est GFR ( Amer) > 60 Glucose 128 H Calcium 7.8 L 09/19/19 09/19/19 09/20/19 08:10 13:31 06:18 Creatine Kinase 21 L CK-MB (CK-2) Troponin I 0.017 NT-Pro-B Natriuret Pep 1050 H 1060 H 09/20/19 09/20/19 09/20/19 06:18 12:43 12:43 Creatine Kinase 20 L CK-MB (CK-2) 1.48 1.83 Troponin I 0.018 0.030 NT-Pro-B Natriuret Pep 09/20/19 09/20/19 19:01 19:01 Creatine Kinase 24 L CK-MB (CK-2) 1.66 Troponin I 0.028 NT-Pro-B Natriuret Pep Impressions: Chest X-Ray 09/19/19 08:44 IMPRESSION: HEART ENLARGED WITHOUT FAILURE. NO OTHER SIGNIFICANT RADIOGRAPHIC FINDING IN THE CHEST. Guidance Fluoroscopy 09/27/19 00:00 IMPRESSION: SUCCESSFUL PLACEMENT OF A 5 FR DUAL LUMEN 46 CM PICC IN THE LEFT BASILIC VEIN. Interventional Vascular Procedure 09/27/19 00:00 IMPRESSION: SUCCESSFUL PLACEMENT OF A 5 FR DUAL LUMEN 46 CM PICC IN THE LEFT BASILIC VEIN. PICC Line Insertion 09/27/19 00:00 IMPRESSION: SUCCESSFUL PLACEMENT OF A 5 FR DUAL LUMEN 46 CM PICC IN THE LEFT BASILIC VEIN. Assessment and Plan - Diagnosis (1) Bacteremia Is this a current diagnosis for this admission?: Yes Plan: Blood culture (09/19/2019; 2 of 4) positive for MRSA and enterococcus species IV vancomycin started 09/21/2019 Repeat blood cultures (09/24/2019) are negative at 72 hours DANELLE was negative for vegetations. Infectious diseases consulted; appreciate their recommendations. PICC line placed. Vancomycin end date 10/23/2019 (2) Acute respiratory failure with hypercapnia Is this a current diagnosis for this admission?: Yes Plan: Acute on chronic respiratory failure with hypoxia and hypercapnia. Significantly improved. Now maintaining oxygen saturations on supplemental oxygen via nasal cannula while at rest. ABG (09/23/2019) shows compensated respiratory acidosis with CO2 of 76.1; at the highest her PCO2 has been. ABG (09/26/19) improved; pCOs 53.1 We will continue supplemental oxygen BiPAP as needed maintain saturations. Encourage BiPAP Continue scheduled nebulizer treatments. Continue IV Solu-Medrol; hold on weaning today r/t increased bicarb and wheezing Mucinex twice daily. Incentive spirometer and flutter valve to bedside. (3) COPD exacerbation Is this a current diagnosis for this admission?: Yes Plan: Improved. Sputum culture shows MRSA and Pseudomonas. Continues on IV vancomycin. Continue Cipro for pseudomonal coverage; Day #4 Remaining management as above. (4) Chronic anemia Is this a current diagnosis for this admission?: Yes Plan: Stable; at baseline hemoglobin of 9.0 No evidence of active bleeding at this time. Continue multivitamin and iron supplement. (5) Coronary artery disease Qualifiers: Coronary Disease-Associated Artery/Lesion type: [place] artery [place] vs. transplanted heart: [place] heart Associated angina: without angina Qualified Code(s): I25.10 - Atherosclerotic heart disease of [place] coronary artery without angina pectoris Is this a current diagnosis for this admission?: Yes (6) Debility and deconditioning Is this a current diagnosis for this admission?: Yes Plan: PT/OT consulted. Likely to discharge to SNF. Discharge planning is consulted. (7) Dementia Qualifiers: Dementia type: unspecified type Dementia behavioral disturbance: without behavioral disturbance Qualified Code(s): F03.90 - Unspecified dementia without behavioral disturbance Is this a current diagnosis for this admission?: Yes Plan: Supportive care. Avoid narcotic medications. (8) Hypothyroid Is this a current diagnosis for this admission?: Yes Plan: Continue home dose levothyroxine. - Time Time Spent with patient: 25-34 minutes Medications reviewed and adjusted accordingly: Yes Anticipated discharge: SNF Within: within 48 hours
[2019-09-28] MEDS: ACETAMINOPHEN 325 MG TABLET PO PRN (20:31)
[2019-09-29] MEDS: DIPHENHYDRAMINE HCL 50 MG/ML VIAL IV SCH (05:03)
[2019-09-29] MEDS: VANCOMYCIN HCL 750 MG in DEXTROSE 5%-WATER 250 ML IV SCH ×2 (05:32→17:32)
[2019-09-29] MEDS: CIPROFLOXACIN 400 MG/D5W RTU 400 MG/200 ML RTUPB IV SCH ×2 (05:32→17:32)
[2019-09-29] MEDS: LEVOTHYROXINE SODIUM 0.05 MG TABLET PO SCH (05:33)
[2019-09-29 06:17] LABS: HEMATOCRIT 25.8 % (36.0-47.0); HEMOGLOBIN 8.5 g/dL (12.0-15.5); MEAN CORPUSCULAR HGB CONC 32.9 g/dL (32.0-36.0); MEAN CORPUSCULAR VOLUME 97 fl (80-97); PLATELET COUNT 277 10^3/uL (150-450); RED BLOOD COUNT 2.66 10^6/uL (3.72-5.28); RED CELL DISTRIBUTION WIDTH 17.7 % (11.5-14.0); WHITE BLOOD COUNT 9.1 10^3/uL (4.0-10.5)
[2019-09-29 06:33] LABS: BLOOD UREA NITROGEN 14 mg/dL (7-20); CALCIUM 8.5 mg/dL (8.4-10.2); CHLORIDE 95 mmol/L (98-107); GLUCOSE 167 mg/dL (75-110); POTASSIUM 3.9 mmol/L (3.6-5.0)
[2019-09-29 06:40] LABS: CARBON DIOXIDE 39 mmol/L (22-30)
[2019-09-29 07:05] LABS: ANION GAP 4 (5-19)
[2019-09-29] MEDS: IPRATROPIUM/ALBUTEROL 0.5-2.5 MG/3 ML AMPUL NEB SCH ×4 (07:36→20:35)
[2019-09-29] MEDS: FERROUS SULFATE 325 MG TABLET PO SCH (09:34)
[2019-09-29] MEDS: MULTIVITAMIN TABLET PO SCH (09:34)
[2019-09-29] MEDS: POTASSIUM CHLORIDE 10 MEQ TABLET.ER PO SCH (09:34)
[2019-09-29] MEDS: DOCUSATE SODIUM 100 MG CAPSULE PO SCH (09:34)
[2019-09-29] MEDS: GUAIFENESIN 600 MG TABLET.SA PO SCH ×2 (09:34→22:15)
[2019-09-29] MEDS: METHYLPREDNISOLONE INJ 40 MG/1 ML SDV IV SCH (09:35)
[2019-09-29] MEDS: FAMOTIDINE 20 MG TABLET PO SCH ×2 (09:35→22:14)
[2019-09-29] MEDS: ENOXAPARIN SODIUM INJ 40 MG/0.4 ML DISP.SYRIN SUBCUT SCH (09:35)
--- NOTE | 2019-09-29 09:55 | PDOC PROGRESS REPORT ---
Subjective Progress Note for:: 09/29/19 Subjective:: The patient is a 74-year-old female, well-known to our service, with a history of atrial fibrillation, CHF, CAD, [place], hypertension, COPD, chronic respiratory failure, sleep apnea, DM 2, hypothyroidism, lung cancer with brain metastasis, GERD, arthritis, gout, dementia, depression, with frequent admissions for COPD exacerbation with hypercapnia resulting in metabolic encephalopathy. The patient was seen on morning rounds. She was found resting in bed, comfortably, on supplemental oxygen via NC. She is A&Ox4 today; quite alert and very talkative. She reports that she is feeling well, "breathing is normal," and denies complaints. She specifically denies fever, chest pain, dyspnea, cough, abdominal pain, nausea vomiting and diarrhea. She reports her son, Jason, visited last night and is ill, himself, with pneumonia. She states that her caregiver, Chika, has not visited and does not believe that she has checked herself into "any program, she's acting like this is a vacation." She states that at home she is ambulatory to a commode and requests PT/OT so that she "can get up outta here." She has no other questions or concerns at this time. No concerns per nursing. Reason For Visit: ALTERED MENTAL STATUS, HYPOXIA,COPD EXACERBATION Physical Exam Vital Signs: Temp Pulse Resp BP Pulse Ox 97.8 F 100 20 142/57 H 98 09/29/19 07:58 09/29/19 07:58 09/29/19 07:58 09/29/19 07:58 09/29/19 07:58 Intake & Output 09/28/19 09/29/19 09/30/19 06:59 06:59 06:59 Intake Total 1040 1340 450 Output Total 2600 1125 Balance -1560 215 450 Weight 67.3 kg 76.6 kg General appearance: PRESENT: no acute distress, cooperative, well-developed, well-nourished Head exam: PRESENT: atraumatic, normocephalic Eye exam: PRESENT: conjunctiva pink, EOMI, PERRLA. ABSENT: scleral icterus Mouth exam: PRESENT: moist, tongue midline Teeth exam: PRESENT: edentulous Respiratory exam: PRESENT: prolonged expiratory phas, rhonchi, symmetrical, unlabored, wheezes, other - Supplemental oxygen by nasal cannula. ABSENT: rales Cardiovascular exam: PRESENT: RRR, +S1, +S2. ABSENT: diastolic murmur, rubs, systolic murmur Pulses: PRESENT: normal dorsalis pedis pul Vascular exam: PRESENT: normal capillary refill GI/Abdominal exam: PRESENT: normal bowel sounds, soft. ABSENT: distended, guarding, mass, organolmegaly, rebound, tenderness Rectal exam: PRESENT: deferred Gentrourinary exam: PRESENT: indwelling catheter Extremities exam: PRESENT: full ROM. ABSENT: calf tenderness, clubbing, pedal edema Neurological exam: PRESENT: alert, awake, oriented to person, oriented to place, oriented to time, oriented to situation, CN II-XII grossly intact. ABSENT: motor sensory deficit Psychiatric exam: PRESENT: appropriate affect, normal mood. ABSENT: homicidal ideation, suicidal ideation Skin exam: PRESENT: dry, intact, warm. ABSENT: cyanosis, rash Results Laboratory Results: 09/29/19 05:50 09/29/19 05:50 09/27/19 09/28/19 09/29/19 04:41 10:30 05:50 WBC 7.2 9.1 RBC 2.75 L 2.66 L Hgb 8.8 L 8.5 L Hct 26.6 L 25.8 L MCV 97 97 MCH 32.0 32.0 MCHC 33.1 32.9 RDW 17.4 H 17.7 H Plt Count 287 277 Sodium Potassium 3.0 L* Chloride Carbon Dioxide Anion Gap BUN Creatinine Est GFR ( Amer) Glucose Calcium 09/29/19 05:50 WBC RBC Hgb Hct MCV MCH MCHC RDW Plt Count Sodium 138.2 Potassium 3.9 Chloride 95 L Carbon Dioxide 39 H Anion Gap 4 L BUN 14 Creatinine 0.80 Est GFR ( Amer) > 60 Glucose 167 H Calcium 8.5 09/19/19 09/19/19 09/20/19 08:10 13:31 06:18 Creatine Kinase 21 L CK-MB (CK-2) Troponin I 0.017 NT-Pro-B Natriuret Pep 1050 H 1060 H 09/20/19 09/20/19 09/20/19 06:18 12:43 12:43 Creatine Kinase 20 L CK-MB (CK-2) 1.48 1.83 Troponin I 0.018 0.030 NT-Pro-B Natriuret Pep 09/20/19 09/20/19 19:01 19:01 Creatine Kinase 24 L CK-MB (CK-2) 1.66 Troponin I 0.028 NT-Pro-B Natriuret Pep Impressions: Chest X-Ray 09/19/19 08:44 IMPRESSION: HEART ENLARGED WITHOUT FAILURE. NO OTHER SIGNIFICANT RADIOGRAPHIC FINDING IN THE CHEST. Guidance Fluoroscopy 09/27/19 00:00 IMPRESSION: SUCCESSFUL PLACEMENT OF A 5 FR DUAL LUMEN 46 CM PICC IN THE LEFT BASILIC VEIN. Interventional Vascular Procedure 09/27/19 00:00 IMPRESSION: SUCCESSFUL PLACEMENT OF A 5 FR DUAL LUMEN 46 CM PICC IN THE LEFT BASILIC VEIN. PICC Line Insertion 09/27/19 00:00 IMPRESSION: SUCCESSFUL PLACEMENT OF A 5 FR DUAL LUMEN 46 CM PICC IN THE LEFT BASILIC VEIN. Assessment and Plan - Diagnosis (1) Bacteremia Is this a current diagnosis for this admission?: Yes Plan: Blood culture (09/19/2019; 2 of 4) positive for MRSA and enterococcus species IV vancomycin started 09/21/2019 Repeat blood cultures (09/24/2019) are negative at 72 hours DANELLE was negative for vegetations. Infectious diseases consulted; appreciate their recommendations. PICC line placed. Vancomycin end date 10/23/2019 Discharge planning is consulted to assist with disposition; recommend SNF for long-term antibiotics as I do not have high confidence the patient's family members will remain compliant with schedule. Patient is medically stable for discharge. (2) Acute respiratory failure with hypercapnia Is this a current diagnosis for this admission?: Yes Plan: Acute on chronic respiratory failure with hypoxia and hypercapnia. Acute exacerbation has resolved. Now maintaining oxygen saturations on supplemental oxygen via nasal cannula while at rest. ABG (09/23/2019) shows compensated respiratory acidosis with CO2 of 76.1; at the highest her PCO2 has been. ABG (09/26/19) improved; pCOs 53.1 We will continue supplemental oxygen BiPAP as needed maintain saturations. Encourage BiPAP Continue scheduled nebulizer treatments; decreased frequency. Transition to prednisone today. Mucinex twice daily. Incentive spirometer and flutter valve to bedside. (3) COPD exacerbation Is this a current diagnosis for this admission?: Yes Plan: Improved. Sputum culture shows MRSA and Pseudomonas. Continues on IV vancomycin. Continue Cipro for pseudomonal coverage; Day #5 Remaining management as above. (4) Chronic anemia Is this a current diagnosis for this admission?: Yes Plan: Stable; at baseline hemoglobin of 9.0 No evidence of active bleeding at this time. Continue multivitamin and iron supplement. (5) Coronary artery disease Qualifiers: Coronary Disease-Associated Artery/Lesion type: [place] artery [place] vs. transplanted heart: [place] heart Associated angina: without angina Qualified Code(s): I25.10 - Atherosclerotic heart disease of [place] coronary artery without angina pectoris Is this a current diagnosis for this admission?: Yes (6) Debility and deconditioning Is this a current diagnosis for this admission?: Yes Plan: PT/OT consulted. Likely to discharge to SNF. Discharge planning is consulted. (7) Dementia Qualifiers: Dementia type: unspecified type Dementia behavioral disturbance: without behavioral disturbance Qualified Code(s): F03.90 - Unspecified dementia without behavioral disturbance Is this a current diagnosis for this admission?: Yes Plan: Supportive care. Avoid narcotic medications. (8) Hypothyroid Is this a current diagnosis for this admission?: Yes Plan: Continue home dose levothyroxine. - Time Time Spent with patient: 25-34 minutes Medications reviewed and adjusted accordingly: Yes Anticipated discharge: Home with Homehealth, SNF Within: when bed available
[2019-09-29] MEDS: PREDNISONE 20 MG TABLET PO SCH (10:44)
[2019-09-29] MEDS ORDERED: DIPHENHYDRAMINE HCL 25 MG CAPSULE PO ONE (22:15)
[2019-09-29] MEDS ORDERED: NYSTATIN TOPICAL POWDER 15 GM TP ONE (22:15)
[2019-09-30] MEDS: IPRATROPIUM/ALBUTEROL 0.5-2.5 MG/3 ML AMPUL NEB SCH ×3 (02:12→13:46)
[2019-09-30] MEDS: VANCOMYCIN HCL 750 MG in DEXTROSE 5%-WATER 250 ML IV SCH (05:16)
[2019-09-30] MEDS: LEVOTHYROXINE SODIUM 0.05 MG TABLET PO SCH (05:16)
[2019-09-30] MEDS: CIPROFLOXACIN 400 MG/D5W RTU 400 MG/200 ML RTUPB IV SCH (05:17)
[2019-09-30 06:17] LABS: VANCOMYCIN,TROUGH 26.3 ug/mL (5.0-20.0)
[2019-09-30] MEDS: PREDNISONE 20 MG TABLET PO SCH (09:11)
[2019-09-30] MEDS: FERROUS SULFATE 325 MG TABLET PO SCH (09:11)
[2019-09-30] MEDS: POTASSIUM CHLORIDE 10 MEQ TABLET.ER PO SCH (09:11)
[2019-09-30] MEDS: GUAIFENESIN 600 MG TABLET.SA PO SCH ×2 (09:11→22:08)
[2019-09-30] MEDS: ENOXAPARIN SODIUM INJ 40 MG/0.4 ML DISP.SYRIN SUBCUT SCH (09:11)
[2019-09-30] MEDS: MULTIVITAMIN TABLET PO SCH (09:11)
[2019-09-30] MEDS: DOCUSATE SODIUM 100 MG CAPSULE PO SCH (09:11)
[2019-09-30] MEDS: FAMOTIDINE 20 MG TABLET PO SCH ×2 (09:11→22:08)
[2019-09-30] MEDS: NYSTATIN TOPICAL POWDER 15 GM TP SCH ×2 (09:16→17:12)
--- NOTE | 2019-09-30 17:17 | PDOC PROGRESS REPORT ---
Subjective Progress Note for:: 09/30/19 Subjective:: The patient is a 74-year-old female, well-known to our service, with a history of atrial fibrillation, CHF, CAD, MD, hypertension, COPD, chronic respiratory failure, sleep apnea, DM 2, hypothyroidism, lung cancer with brain metastasis, GERD, arthritis, gout, dementia, depression, with frequent admissions for COPD exacerbation with hypercapnia resulting in metabolic encephalopathy. The patient was seen on morning rounds. She was found resting in bed, comfortably, on supplemental oxygen via NC. She is A&Ox4 today. She reports she is feeling well today; no concerns. Breathing is "my normal wheeze." She is agreeable to SNF today due to need for antibiotics; admits that she doesn't think that she and her family would be able to manage them at home. She denies fever, chest pain, dyspnea, cough, abdominal pain, nausea vomiting and diarrhea. She has no other questions or concerns at this time. No concerns per nursing. Reason For Visit: ALTERED MENTAL STATUS, HYPOXIA,COPD EXACERBATION Physical Exam Vital Signs: Temp Pulse Resp BP Pulse Ox 98.4 F 101 H 20 130/69 H 98 09/30/19 11:39 09/30/19 14:00 09/30/19 13:48 09/30/19 11:39 09/30/19 13:48 Intake & Output 09/29/19 09/30/19 10/01/19 06:59 06:59 06:59 Intake Total 1340 2050 50 Output Total 1125 1375 750 Balance 215 675 -700 Weight 76.6 kg 77 kg General appearance: PRESENT: no acute distress, cooperative, well-developed, well-nourished, other - overweight Head exam: PRESENT: atraumatic, normocephalic Eye exam: PRESENT: conjunctiva pink, EOMI, PERRLA. ABSENT: scleral icterus Mouth exam: PRESENT: moist, tongue midline Teeth exam: PRESENT: edentulous Respiratory exam: PRESENT: prolonged expiratory phas, symmetrical, unlabored, wheezes - RUL, other - supplemental oxygen on NC. ABSENT: rales, rhonchi Cardiovascular exam: PRESENT: RRR, +S1, +S2. ABSENT: diastolic murmur, rubs, systolic murmur Pulses: PRESENT: normal dorsalis pedis pul Vascular exam: PRESENT: normal capillary refill GI/Abdominal exam: PRESENT: normal bowel sounds, soft. ABSENT: distended, guarding, mass, organolmegaly, rebound, tenderness Rectal exam: PRESENT: deferred Gentrourinary exam: PRESENT: indwelling catheter Extremities exam: PRESENT: full ROM. ABSENT: calf tenderness, clubbing, pedal edema Neurological exam: PRESENT: alert, awake, oriented to person, oriented to place, oriented to time, oriented to situation, CN II-XII grossly intact. ABSENT: motor sensory deficit Psychiatric exam: PRESENT: appropriate affect, normal mood. ABSENT: homicidal ideation, suicidal ideation Skin exam: PRESENT: dry, intact, warm. ABSENT: cyanosis, rash Results Laboratory Results: 09/29/19 05:50 09/30/19 05:15 09/30/19 05:15 Creatinine 0.85 Est GFR ( Amer) > 60 09/19/19 09/19/19 09/20/19 08:10 13:31 06:18 Creatine Kinase 21 L CK-MB (CK-2) Troponin I 0.017 NT-Pro-B Natriuret Pep 1050 H 1060 H 09/20/19 09/20/19 09/20/19 06:18 12:43 12:43 Creatine Kinase 20 L CK-MB (CK-2) 1.48 1.83 Troponin I 0.018 0.030 NT-Pro-B Natriuret Pep 09/20/19 09/20/19 19:01 19:01 Creatine Kinase 24 L CK-MB (CK-2) 1.66 Troponin I 0.028 NT-Pro-B Natriuret Pep Impressions: Chest X-Ray 09/19/19 08:44 IMPRESSION: HEART ENLARGED WITHOUT FAILURE. NO OTHER SIGNIFICANT RADIOGRAPHIC FINDING IN THE CHEST. Guidance Fluoroscopy 09/27/19 00:00 IMPRESSION: SUCCESSFUL PLACEMENT OF A 5 FR DUAL LUMEN 46 CM PICC IN THE LEFT BASILIC VEIN. Interventional Vascular Procedure 09/27/19 00:00 IMPRESSION: SUCCESSFUL PLACEMENT OF A 5 FR DUAL LUMEN 46 CM PICC IN THE LEFT BASILIC VEIN. PICC Line Insertion 09/27/19 00:00 IMPRESSION: SUCCESSFUL PLACEMENT OF A 5 FR DUAL LUMEN 46 CM PICC IN THE LEFT BASILIC VEIN. Assessment and Plan - Diagnosis (1) Bacteremia Is this a current diagnosis for this admission?: Yes Plan: Blood culture (09/19/2019; 2 of 4) positive for MRSA and enterococcus species IV vancomycin started 09/21/2019 Repeat blood cultures (09/24/2019) are negative at 72 hours DANELLE was negative for vegetations. Infectious diseases consulted; appreciate their recommendations. PICC line placed. Vancomycin end date 10/23/2019 Discharge planning is consulted to assist with disposition; recommend SNF for long-term antibiotics as I do not have high confidence the patient's family members will remain compliant with schedule. Patient's is agreeable today. Patient is medically stable for discharge. (2) Acute respiratory failure with hypercapnia Is this a current diagnosis for this admission?: Yes Plan: Acute on chronic respiratory failure with hypoxia and hypercapnia. Acute exacerbation has resolved. Now maintaining oxygen saturations on her baseline supplemental oxygen via nasal cannula while at rest. ABG (09/23/2019) shows compensated respiratory acidosis with CO2 of 76.1; at the highest her PCO2 has been. ABG (09/26/19) improved; pCOs 53.1 We will continue supplemental oxygen BiPAP as needed maintain saturations. Encourage BiPAP Continue scheduled nebulizer treatments; decreased frequency. Continue prednisone Mucinex twice daily. Incentive spirometer and flutter valve to bedside. (3) COPD exacerbation Is this a current diagnosis for this admission?: Yes Plan: Improved. Sputum culture shows MRSA and Pseudomonas. Continues on IV vancomycin. Continue Cipro for pseudomonal coverage; Day #6 of 7 Remaining management as above. (4) Chronic anemia Is this a current diagnosis for this admission?: Yes Plan: Stable; at baseline hemoglobin of 9.0 No evidence of active bleeding at this time. Continue multivitamin and iron supplement. (5) Coronary artery disease Qualifiers: Coronary Disease-Associated Artery/Lesion type: [place] artery [place] vs. transplanted heart: [place] heart Associated angina: without angina Qualified Code(s): I25.10 - Atherosclerotic heart disease of [place] coronary artery without angina pectoris Is this a current diagnosis for this admission?: Yes (6) Debility and deconditioning Is this a current diagnosis for this admission?: Yes Plan: PT/OT consulted. Likely to discharge to SNF. Discharge planning is consulted. (7) Dementia Qualifiers: Dementia type: unspecified type Dementia behavioral disturbance: without behavioral disturbance Qualified Code(s): F03.90 - Unspecified dementia without behavioral disturbance Is this a current diagnosis for this admission?: Yes Plan: Supportive care. Avoid narcotic medications. (8) Hypothyroid Is this a current diagnosis for this admission?: Yes Plan: Continue home dose levothyroxine. - Time Time Spent with patient: 25-34 minutes Medications reviewed and adjusted accordingly: Yes Anticipated discharge: SNF Within: when bed available
[2019-09-30] MEDS: CIPROFLOXACIN HCL 500 MG TABLET PO SCH (22:08)
[2019-10-01] MEDS: IPRATROPIUM/ALBUTEROL 0.5-2.5 MG/3 ML AMPUL NEB SCH ×3 (00:05→16:01)
[2019-10-01] MEDS: LEVOTHYROXINE SODIUM 0.05 MG TABLET PO SCH (05:44)
[2019-10-01] MEDS: VANCOMYCIN HCL 1,500 MG in DEXTROSE 5%-WATER 250 ML IV SCH (05:44)
[2019-10-01 06:22] LABS: HEMATOCRIT 24.2 % (36.0-47.0); HEMOGLOBIN 8.1 g/dL (12.0-15.5); MEAN CORPUSCULAR HEMOGLOBIN 32.9 pg (27.0-33.4); MEAN CORPUSCULAR HGB CONC 33.6 g/dL (32.0-36.0); MEAN CORPUSCULAR VOLUME 98 fl (80-97); PLATELET COUNT 237 10^3/uL (150-450); RED BLOOD COUNT 2.47 10^6/uL (3.72-5.28); RED CELL DISTRIBUTION WIDTH 17.9 % (11.5-14.0); WHITE BLOOD COUNT 7.1 10^3/uL (4.0-10.5)
[2019-10-01 06:56] LABS: BLOOD UREA NITROGEN 13 mg/dL (7-20); CALCIUM 8.8 mg/dL (8.4-10.2); CHLORIDE 100 mmol/L (98-107); GLUCOSE 81 mg/dL (75-110); POTASSIUM 3.6 mmol/L (3.6-5.0)
[2019-10-01 07:03] LABS: CARBON DIOXIDE 39 mmol/L (22-30)
[2019-10-01 07:08] LABS: ANION GAP 4 (5-19)
[2019-10-01] MEDS: CIPROFLOXACIN HCL 500 MG TABLET PO SCH ×2 (09:23→21:28)
[2019-10-01] MEDS: PREDNISONE 20 MG TABLET PO SCH (09:23)
[2019-10-01] MEDS: FAMOTIDINE 20 MG TABLET PO SCH ×2 (09:23→21:25)
[2019-10-01] MEDS: GUAIFENESIN 600 MG TABLET.SA PO SCH ×2 (09:23→21:25)
[2019-10-01] MEDS: ENOXAPARIN SODIUM INJ 40 MG/0.4 ML DISP.SYRIN SUBCUT SCH (09:23)
[2019-10-01] MEDS: POTASSIUM CHLORIDE 10 MEQ TABLET.ER PO SCH (09:23)
[2019-10-01] MEDS: DOCUSATE SODIUM 100 MG CAPSULE PO SCH (09:23)
[2019-10-01] MEDS: NYSTATIN TOPICAL POWDER 15 GM TP SCH ×2 (09:26→17:00)
--- NOTE | 2019-10-01 09:38 | PDOC PROGRESS REPORT ---
Subjective Progress Note for:: 10/01/19 Subjective:: The patient is resting in bed. She did an excellent job eating breakfast. She does complain about constipation. She is resting comfortably on room air. She did have some peculiar answers to questions. When I asked about the plans that the hospitalist laid out yesterday regarding her IV antibiotics she referred to the nurse practitioner as "jerad". Also I asked her who she lives with. She said her son. She then called her son "aria ". She states she calls him this all of time. His actual name is Jason. She was able to tell me she was in [facility]. With small Q's she told me it was September. She certainly recognize her name. She was little fuzzy about the discharge plan. Reason For Visit: ALTERED MENTAL STATUS, HYPOXIA,COPD EXACERBATION Physical Exam Vital Signs: Temp Pulse Resp BP Pulse Ox 98.1 F 97 19 144/61 H 100 10/01/19 08:16 10/01/19 08:19 10/01/19 08:19 10/01/19 08:16 10/01/19 08:19 Intake & Output 09/30/19 10/01/19 10/02/19 06:59 06:59 06:59 Intake Total 2049 50 250 Output Total 1375 0 Balance 675 -2000 250 Weight 77 kg 75.3 kg General appearance: PRESENT: no acute distress, cooperative, well-developed, well-nourished Head exam: PRESENT: atraumatic, normocephalic Eye exam: PRESENT: conjunctiva pale. ABSENT: scleral icterus Ear exam: PRESENT: normal external ear exam. ABSENT: bleeding, drainage Mouth exam: PRESENT: moist, tongue midline Teeth exam: PRESENT: edentulous Respiratory exam: PRESENT: unlabored, wheezes - Sporadic expiratory wheeze, other - Very congested cough. Somewhat decreased breath sounds posteriorly. Possible rales at bases. Cardiovascular exam: PRESENT: RRR, +S1, +S2. ABSENT: diastolic murmur - Was not able to auscultate murmurs possibly due to body habitus., systolic murmur GI/Abdominal exam: PRESENT: hypoactive bowel sounds, soft. ABSENT: distended, guarding, tenderness Rectal exam: PRESENT: deferred Extremities exam: ABSENT: joint swelling, pedal edema Musculoskeletal exam: PRESENT: normal inspection. ABSENT: deformity Neurological exam: PRESENT: alert, awake, oriented to person, oriented to place, CN II-XII grossly intact Psychiatric exam: PRESENT: flat affect. ABSENT: agitated, anxious Focused psych exam: ABSENT: delusional, restlessness Skin exam: PRESENT: dry, normal color, warm. ABSENT: rash Results Laboratory Results: 10/01/19 05:40 10/01/19 05:40 10/01/19 10/01/19 05:40 05:40 WBC 7.1 RBC 2.47 L Hgb 8.1 L Hct 24.2 L MCV 98 H MCH 32.9 MCHC 33.6 RDW 17.9 H Plt Count 237 Sodium 142.5 Potassium 3.6 Chloride 100 Carbon Dioxide 39 H Anion Gap 4 L BUN 13 Creatinine 0.76 Est GFR ( Amer) > 60 Glucose 81 Calcium 8.8 09/19/19 09/19/19 09/20/19 08:10 13:31 06:18 Creatine Kinase 21 L CK-MB (CK-2) Troponin I 0.017 NT-Pro-B Natriuret Pep 1050 H 1060 H 09/20/19 09/20/19 09/20/19 06:18 12:43 12:43 Creatine Kinase 20 L CK-MB (CK-2) 1.48 1.83 Troponin I 0.018 0.030 NT-Pro-B Natriuret Pep 09/20/19 09/20/19 19:01 19:01 Creatine Kinase 24 L CK-MB (CK-2) 1.66 Troponin I 0.028 NT-Pro-B Natriuret Pep Impressions: Chest X-Ray 09/19/19 08:44 IMPRESSION: HEART ENLARGED WITHOUT FAILURE. NO OTHER SIGNIFICANT RADIOGRAPHIC FINDING IN THE CHEST. Guidance Fluoroscopy 09/27/19 00:00 IMPRESSION: SUCCESSFUL PLACEMENT OF A 5 FR DUAL LUMEN 46 CM PICC IN THE LEFT BASILIC VEIN. Interventional Vascular Procedure 09/27/19 00:00 IMPRESSION: SUCCESSFUL PLACEMENT OF A 5 FR DUAL LUMEN 46 CM PICC IN THE LEFT BASILIC VEIN. PICC Line Insertion 09/27/19 00:00 IMPRESSION: SUCCESSFUL PLACEMENT OF A 5 FR DUAL LUMEN 46 CM PICC IN THE LEFT BASILIC VEIN. Assessment and Plan - Diagnosis (1) Enterococcal bacteremia Is this a current diagnosis for this admission?: Yes (2) Bacteremia due to methicillin resistant Staphylococcus aureus Is this a current diagnosis for this admission?: Yes (3) Acute respiratory failure with hypercapnia Is this a current diagnosis for this admission?: Yes (4) COPD exacerbation Is this a current diagnosis for this admission?: Yes (5) Chronic anemia Is this a current diagnosis for this admission?: Yes (6) Coronary artery disease Qualifiers: Coronary Disease-Associated Artery/Lesion type: [place] artery [place] vs. transplanted heart: [place] heart Associated angina: without angina Qualified Code(s): I25.10 - Atherosclerotic heart disease of [place] coronary artery without angina pectoris Is this a current diagnosis for this admission?: Yes (7) Debility and deconditioning Is this a current diagnosis for this admission?: Yes (8) Dementia Qualifiers: Dementia type: unspecified type Dementia behavioral disturbance: without behavioral disturbance Qualified Code(s): F03.90 - Unspecified dementia without behavioral disturbance Is this a current diagnosis for this admission?: Yes (9) Hypothyroid Qualifiers: Hypothyroidism type: unspecified Qualified Code(s): E03.9 - Hypothyroidism, unspecified Is this a current diagnosis for this admission?: Yes - Plan Summary Summary: 10/01/2019 The patient is sitting up in bed eating. She is comfortable on nasal cannula. Bacteremia with MRSA and enterococci currently being treated with IV vancomycin. Per infectious diseases anticipated end date is October 23, 2019. The patient is awaiting SNF placement to complete antibiotic therapy as well is work on her deconditioning. Exacerbation of COPD-the patient had acute respiratory failure with hypercapnia and exacerbation of her COPD. The acute respiratory failure has resolved. The sputum culture did show methicillin-resistant staph aureus and Pseudomonas. She completed a course of ciprofloxacin for the Pseudomonas and remains on vanc omycin as above. The COPD appears to be back at baseline. She remains on prednisone, nebulizer treatment and mucolytic's as well as her Daliresp. I will decrease her prednisone to 40 mg daily with a goal of tapering to off. Her chronic anemia has been stable. We will continue to monitor with blood work. Continue current regimen for coronary artery disease. No evidence of acute coronary syndrome. Dementia appears to be at baseline. Continue supportive care. Hypothyroidism-continue levothyroxine Deconditioning with debility-the patient would benefit from nursing home placement not only for antibiotics but also for ongoing physical therapy to help build strength and stamina. I believe discharge planning is attempting to reach the patient's daughter for definitive decision making. Evidently this has been an issue in the past where it seems to be difficult to make contact with the patient's daughter. - Time Time Spent with patient: 15-24 minutes Medications reviewed and adjusted accordingly: Yes Anticipated discharge: SNF
[2019-10-01] MEDS ORDERED: BISACODYL 5 MG TABEC PO PRN (09:39)
[2019-10-01] MEDS: POLYETHYLENE GLYCOL 3350 POWDER 17 GM/1 PACKET PO SCH (10:17)
[2019-10-01] MEDS: SENNOSIDES/DOCUSATE 8.6-50 MG 1 EACH TABLET PO SCH ×2 (10:17→17:00)
[2019-10-01] MEDS ORDERED: BISACODYL 5 MG TABEC PO ONE (11:00)
[2019-10-01] MEDS: MULTIVITAMIN TABLET PO SCH (11:02)
[2019-10-01] MEDS: FERROUS SULFATE 325 MG TABLET PO SCH (11:02)
[2019-10-02] MEDS: IPRATROPIUM/ALBUTEROL 0.5-2.5 MG/3 ML AMPUL NEB SCH ×4 (00:05→20:16)
[2019-10-02] MEDS: VANCOMYCIN HCL 1,500 MG in DEXTROSE 5%-WATER 250 ML IV SCH (06:50)
[2019-10-02] MEDS: LEVOTHYROXINE SODIUM 0.05 MG TABLET PO SCH (06:50)
[2019-10-02] MEDS: DOCUSATE SODIUM 100 MG CAPSULE PO SCH (09:12)
[2019-10-02] MEDS: PREDNISONE 20 MG TABLET PO SCH (09:12)
[2019-10-02] MEDS: GUAIFENESIN 600 MG TABLET.SA PO SCH ×2 (09:12→21:43)
[2019-10-02] MEDS: ENOXAPARIN SODIUM INJ 40 MG/0.4 ML DISP.SYRIN SUBCUT SCH (09:13)
[2019-10-02] MEDS: POLYETHYLENE GLYCOL 3350 POWDER 17 GM/1 PACKET PO SCH (09:13)
[2019-10-02] MEDS: POTASSIUM CHLORIDE 10 MEQ TABLET.ER PO SCH (09:13)
[2019-10-02] MEDS: SENNOSIDES/DOCUSATE 8.6-50 MG 1 EACH TABLET PO SCH ×2 (09:13→17:08)
[2019-10-02] MEDS: NYSTATIN TOPICAL POWDER 15 GM TP SCH ×2 (09:13→17:09)
[2019-10-02] MEDS: CIPROFLOXACIN HCL 500 MG TABLET PO SCH (09:13)
[2019-10-02] MEDS: FAMOTIDINE 20 MG TABLET PO SCH ×2 (09:13→21:43)
[2019-10-02] MEDS: MULTIVITAMIN TABLET PO SCH (11:12)
[2019-10-02] MEDS: FERROUS SULFATE 325 MG TABLET PO SCH ×3 (11:12→17:09)
--- NOTE | 2019-10-02 11:28 | PDOC PROGRESS REPORT ---
Subjective Progress Note for:: 10/02/19 Subjective:: The patient still has a rather congested cough. She has a history of methicillin-resistant staph aureus pneumonia. Pseudomonas was cultured from her sputum as well. She does have methicillin-resistant staph aureus bacteremia. It is hard to know if the patient's respiratory status is at baseline, which it probably is, or if there is a new process since she continues to complain of a productive cough. I will check a chest x-ray. Reason For Visit: ALTERED MENTAL STATUS, HYPOXIA,COPD EXACERBATION Physical Exam Vital Signs: Temp Pulse Resp BP Pulse Ox 98.3 F 100 18 149/80 H 100 10/02/19 08:02 10/02/19 08:39 10/02/19 08:39 10/02/19 08:02 10/02/19 08:39 Intake & Output 10/01/19 10/02/19 10/03/19 06:59 06:59 06:59 Intake Total 50 1000 250 Output Total 2050 925 Balance -2000 75 250 Weight 75.3 kg 78.6 kg General appearance: PRESENT: cooperative, well-developed Respiratory exam: PRESENT: symmetrical, wheezes, other - She still has a very congested cough. Peripherally the lungs do not sound congested.. ABSENT: accessory muscle use, rales, rhonchi, tachypnea Cardiovascular exam: PRESENT: RRR, +S1, +S2 GI/Abdominal exam: PRESENT: normal bowel sounds, soft. ABSENT: distended, guarding, tenderness Rectal exam: PRESENT: deferred Neurological exam: PRESENT: alert, awake, oriented to person, oriented to situation, CN II-XII grossly intact, other - Clear evidence of memory loss. Needs constant cueing and redirection. Psychiatric exam: PRESENT: flat affect. ABSENT: agitated, anxious Skin exam: PRESENT: dry, normal color, warm. ABSENT: rash Results Laboratory Results: 10/01/19 05:40 10/01/19 05:40 09/19/19 09/19/19 09/20/19 08:10 13:31 06:18 Creatine Kinase 21 L CK-MB (CK-2) Troponin I 0.017 NT-Pro-B Natriuret Pep 1050 H 1060 H 09/20/19 09/20/19 09/20/19 06:18 12:43 12:43 Creatine Kinase 20 L CK-MB (CK-2) 1.48 1.83 Troponin I 0.018 0.030 NT-Pro-B Natriuret Pep 09/20/19 09/20/19 19:01 19:01 Creatine Kinase 24 L CK-MB (CK-2) 1.66 Troponin I 0.028 NT-Pro-B Natriuret Pep Impressions: Chest X-Ray 09/19/19 08:44 IMPRESSION: HEART ENLARGED WITHOUT FAILURE. NO OTHER SIGNIFICANT RADIOGRAPHIC FINDING IN THE CHEST. Guidance Fluoroscopy 09/27/19 00:00 IMPRESSION: SUCCESSFUL PLACEMENT OF A 5 FR DUAL LUMEN 46 CM PICC IN THE LEFT BASILIC VEIN. Interventional Vascular Procedure 09/27/19 00:00 IMPRESSION: SUCCESSFUL PLACEMENT OF A 5 FR DUAL LUMEN 46 CM PICC IN THE LEFT BASILIC VEIN. PICC Line Insertion 09/27/19 00:00 IMPRESSION: SUCCESSFUL PLACEMENT OF A 5 FR DUAL LUMEN 46 CM PICC IN THE LEFT BASILIC VEIN. Assessment and Plan - Diagnosis (1) Enterococcal bacteremia Is this a current diagnosis for this admission?: Yes (2) Bacteremia due to methicillin resistant Staphylococcus aureus Is this a current diagnosis for this admission?: Yes (3) Acute respiratory failure with hypercapnia Is this a current diagnosis for this admission?: Yes (4) COPD exacerbation Is this a current diagnosis for this admission?: Yes (5) Chronic anemia Is this a current diagnosis for this admission?: Yes (6) Coronary artery disease Qualifiers: Coronary Disease-Associated Artery/Lesion type: [place] artery [place] vs. transplanted heart: [place] heart Associated angina: without angina Qualified Code(s): I25.10 - Atherosclerotic heart disease of [place] coronary artery without angina pectoris Is this a current diagnosis for this admission?: Yes (7) Debility and deconditioning Is this a current diagnosis for this admission?: Yes (8) Dementia Qualifiers: Dementia type: unspecified type Dementia behavioral disturbance: without behavioral disturbance Qualified Code(s): F03.90 - Unspecified dementia without behavioral disturbance Is this a current diagnosis for this admission?: Yes (9) Hypothyroid Qualifiers: Hypothyroidism type: unspecified Qualified Code(s): E03.9 - Hypothyroidism, unspecified Is this a current diagnosis for this admission?: Yes - Plan Summary Summary: 10/01/2019 The patient is sitting up in bed eating. She is comfortable on nasal cannula. Bacteremia with MRSA and enterococci currently being treated with IV vancomycin. Per infectious diseases anticipated end date is October 23, 2019. The patient is awaiting SNF placement to complete antibiotic therapy as well is work on her deconditioning. Exacerbation of COPD-the patient had acute respiratory failure with hypercapnia and exacerbation of her COPD. The acute respiratory failure has resolved. The sputum culture did show methicillin-resistant staph aureus and Pseudomonas. She completed a course of ciprofloxacin for the Pseudomonas and remains on vancomycin as above. The COPD appears to be back at baseline. She remains on prednisone, nebulizer treatment and mucolytic's as well as her Daliresp. I will decrease her prednisone to 40 mg daily with a goal of tapering to off. Her chronic anemia has been stable. We will continue to monitor with blood work. Continue current regimen for coronary artery disease. No evidence of acute coronary syndrome. Dementia appears to be at baseline. Continue supportive care. Hypothyroidism-continue levothyroxine Deconditioning with debility-the patient would benefit from longterm placement not only for antibiotics but also for ongoing physical therapy to help build strength and stamina. I believe discharge planning is attempting to reach the patient's daughter for definitive decision making. Evidently this has been an issue in the past where it seems to be difficult to make contact with the patient's daughter. 10/02/2019 Currently on IV vancomycin for bacteremia with MRSA and enterococci. Therapy through October 22. Pseudomonas pneumonia treatment completed with fluoroquinolone therapy COPD with exacerbation of respiratory failure appears to be stable. It is likely that the patient is at her baseline. Continue current regimen including nebulizer treatments and slow taper of prednisone therapy. Continue supportive care for her dementia. Continue levothyroxine for her hypothyroidism. The plan is transitioning to longterm with the potential for long-term care. Awaiting acceptance and bed availability. Case management is still working diligently with the family but it is often difficult to make contact. - Time Time Spent with patient: 15-24 minutes Medications reviewed and adjusted accordingly: Yes Anticipated discharge: SNF
--- NOTE | 2019-10-02 13:40 | RADIOLOGY REPORT (SQ) ---
EXAM DESCRIPTION: CHEST SINGLE VIEW COMPLETED DATE/TIME: 10/02/2019 1:19 pm REASON FOR STUDY: Respiratory failure, COPD COMPARISON: AP view of the chest from 09/19/2019. EXAM PARAMETERS: NUMBER OF VIEWS: One view. TECHNIQUE: An AP view of the chest was obtained. RADIATION DOSE: NA LIMITATIONS: None. FINDINGS: LUNGS AND PLEURA: The costophrenic sulci are blunted. There is no acute consolidation or pneumothorax. MEDIASTINUM AND HILAR STRUCTURES: Unchanged appearance of the right hilum. HEART AND VASCULAR STRUCTURES: The cardiac silhouette and pulmonary vasculature are within normal [place] its. BONES: No acute findings. HARDWARE: None in the chest. OTHER: No other finding. IMPRESSION: No acute cardiopulmonary process. TECHNICAL DOCUMENTATION: JOB ID: [id number] 2010 [email or web address] All Rights Reserved Reading location - IP/workstation name: [email or web address]
[2019-10-03] MEDS: IPRATROPIUM/ALBUTEROL 0.5-2.5 MG/3 ML AMPUL NEB SCH ×4 (01:46→20:39)
[2019-10-03] MEDS: VANCOMYCIN HCL 1,500 MG in DEXTROSE 5%-WATER 250 ML IV SCH (05:57)
[2019-10-03] MEDS: LEVOTHYROXINE SODIUM 0.05 MG TABLET PO SCH (05:57)
[2019-10-03 06:33] LABS: ABSOLUTE MONOCYTES (AUTO) 0.9 10^3/uL (0.1-1.4); ABSOLUTE NEUT (AUTO) 5.3 10^3/uL (1.7-8.2); ABSOLUTE RETICS # 0.058 10^6/uL (0.028-0.122); BASOPHILS % (AUTO) 0.2 % (0-2); EOSINOPHILS % (AUTO) 0.3 % (0-6); HEMATOCRIT 24.6 % (36.0-47.0); HEMOGLOBIN 8.4 g/dL (12.0-15.5); LYMPHOCYTES % (AUTO) 13.2 % (13-45); MEAN CORPUSCULAR HEMOGLOBIN 33.1 pg (27.0-33.4); MEAN CORPUSCULAR HGB CONC 34.2 g/dL (32.0-36.0); MEAN CORPUSCULAR VOLUME 97 fl (80-97); MONOCYTES % (AUTO) 12.9 % (3-13); PLATELET COUNT 221 10^3/uL (150-450); RED BLOOD COUNT 2.53 10^6/uL (3.72-5.28); RETICULOCYTE COUNT (AUTO) 2.28 % (0.66-2.85); SEGMENTED NEUTROPHILS % (AUTO) 73.4 % (42-78); TOTAL CELLS COUNTED % (AUTO) 100 %; WHITE BLOOD COUNT 7.2 10^3/uL (4.0-10.5)
[2019-10-03 06:54] LABS: BLOOD UREA NITROGEN 16 mg/dL (7-20); GLUCOSE 87 mg/dL (75-110); IRON(TIBC) 48.9 ug/dL (37-170); POTASSIUM 3.7 mmol/L (3.6-5.0)
[2019-10-03 07:00] LABS: CARBON DIOXIDE 39 mmol/L (22-30); CHLORIDE 100 mmol/L (98-107)
[2019-10-03 07:04] LABS: ANION GAP 0 (5-19)
[2019-10-03] MEDS: FERROUS SULFATE 325 MG TABLET PO SCH ×4 (10:05→18:34)
[2019-10-03] MEDS: GUAIFENESIN 600 MG TABLET.SA PO SCH (10:42)
[2019-10-03] MEDS: SENNOSIDES/DOCUSATE 8.6-50 MG 1 EACH TABLET PO SCH ×2 (10:42→18:35)
[2019-10-03] MEDS: FAMOTIDINE 20 MG TABLET PO SCH (10:42)
[2019-10-03] MEDS: POTASSIUM CHLORIDE 10 MEQ TABLET.ER PO SCH (10:43)
[2019-10-03] MEDS: DOCUSATE SODIUM 100 MG CAPSULE PO SCH (10:43)
[2019-10-03] MEDS: PREDNISONE 20 MG TABLET PO SCH (10:43)
[2019-10-03] MEDS: POLYETHYLENE GLYCOL 3350 POWDER 17 GM/1 PACKET PO SCH (10:43)
[2019-10-03] MEDS: ENOXAPARIN SODIUM INJ 40 MG/0.4 ML DISP.SYRIN SUBCUT SCH (10:44)
[2019-10-03] MEDS: NYSTATIN TOPICAL POWDER 15 GM TP SCH ×2 (10:44→18:35)
[2019-10-03] MEDS: MULTIVITAMIN TABLET PO SCH (14:31)
--- NOTE | 2019-10-03 15:45 | PDOC PROGRESS REPORT ---
Subjective Progress Note for:: 10/03/19 Subjective:: The patient is sleeping soundly. Several gentle attempts were made to awaken the patient. Nursing reports that she was awake and at baseline earlier and that she had just fallen asleep. With that in mind I did not aggressively try to awaken the patient this morning. Reason For Visit: ALTERED MENTAL STATUS, HYPOXIA,COPD EXACERBATION Physical Exam Vital Signs: Temp Pulse Resp BP Pulse Ox 98.7 F 104 H 18 134/63 H 100 10/03/19 11:30 10/03/19 13:31 10/03/19 13:31 10/03/19 11:30 10/03/19 13:31 Intake & Output 10/02/19 10/03/19 10/04/19 06:59 06:59 06:59 Intake Total 1000 770 250 Output Total 925 1650 Balance 75 -880 250 Weight 78.6 kg 75.9 kg General appearance: PRESENT: no acute distress, well-developed Head exam: PRESENT: atraumatic, normocephalic Ear exam: PRESENT: normal external ear exam. ABSENT: bleeding, drainage Respiratory exam: PRESENT: clear to auscultation jeff - Anteriorly, stridor - Stridorous breath sounds on occasion. Likely due to body positioning. The patient has slowed down on the bed somewhat with her neck flexed., symmetrical, unlabored. ABSENT: rales, tachypnea, wheezes Cardiovascular exam: PRESENT: RRR, +S1, +S2 Rectal exam: PRESENT: deferred Neurological exam: ABSENT: awake Psychiatric exam: ABSENT: agitated Focused psych exam: ABSENT: restlessness Results Laboratory Results: 10/03/19 06:00 10/03/19 06:00 10/03/19 10/03/19 06:00 06:00 WBC 7.2 RBC 2.53 L Hgb 8.4 L Hct 24.6 L MCV 97 MCH 33.1 MCHC 34.2 RDW 18.0 H Plt Count 221 Seg Neutrophils % 73.4 Retic Count (auto) 2.28 Sodium 139.1 Potassium 3.7 Chloride 100 Carbon Dioxide 39 H Anion Gap 0 L BUN 16 Creatinine 0.80 Est GFR ( Amer) > 60 Glucose 87 Calcium 9.0 Magnesium 2.1 Iron 48.9 TIBC 238 L % Saturation 21 Ferritin 101.00 Vitamin B12 470.0 Folate 17.60 09/19/19 09/19/19 09/20/19 08:10 13:31 06:18 Creatine Kinase 21 L CK-MB (CK-2) Troponin I 0.017 NT-Pro-B Natriuret Pep 1050 H 1060 H 09/20/19 09/20/19 09/20/19 06:18 12:43 12:43 Creatine Kinase 20 L CK-MB (CK-2) 1.48 1.83 Troponin I 0.018 0.030 NT-Pro-B Natriuret Pep 09/20/19 09/20/19 19:01 19:01 Creatine Kinase 24 L CK-MB (CK-2) 1.66 Troponin I 0.028 NT-Pro-B Natriuret Pep Impressions: Guidance Fluoroscopy 09/27/19 00:00 IMPRESSION: SUCCESSFUL PLACEMENT OF A 5 FR DUAL LUMEN 46 CM PICC IN THE LEFT BASILIC VEIN. Interventional Vascular Procedure 09/27/19 00:00 IMPRESSION: SUCCESSFUL PLACEMENT OF A 5 FR DUAL LUMEN 46 CM PICC IN THE LEFT BASILIC VEIN. PICC Line Insertion 09/27/19 00:00 IMPRESSION: SUCCESSFUL PLACEMENT OF A 5 FR DUAL LUMEN 46 CM PICC IN THE LEFT BASILIC VEIN. Chest X-Ray 10/02/19 00:00 IMPRESSION: No acute cardiopulmonary process. Assessment and Plan - Diagnosis (1) Enterococcal bacteremia Is this a current diagnosis for this admission?: Yes (2) Bacteremia due to methicillin resistant Staphylococcus aureus Is this a current diagnosis for this admission?: Yes (3) Acute respiratory failure with hypercapnia Is this a current diagnosis for this admission?: Yes (4) COPD exacerbation Is this a current diagnosis for this admission?: Yes (5) Chronic anemia Is this a current diagnosis for this admission?: Yes (6) Coronary artery disease Qualifiers: Coronary Disease-Associated Artery/Lesion type: [place] artery [place] vs. transplanted heart: [place] heart Associated angina: without angina Qualified Code(s): I25.10 - Atherosclerotic heart disease of [place] coronary artery without angina pectoris Is this a current diagnosis for this admission?: Yes (7) Debility and deconditioning Is this a current diagnosis for this admission?: Yes (8) Dementia Qualifiers: Dementia type: unspecified type Dementia behavioral disturbance: without behavioral disturbance Qualified Code(s): F03.90 - Unspecified dementia without behavioral disturbance Is this a current diagnosis for this admission?: Yes (9) Hypothyroid Qualifiers: Hypothyroidism type: unspecified Qualified Code(s): E03.9 - Hypothyroidism, unspecified Is this a current diagnosis for this admission?: Yes - Plan Summary Summary: 10/01/2019 The patient is sitting up in bed eating. She is comfortable on nasal cannula. Bacteremia with MRSA and enterococci currently being treated with IV vancomycin. Per infectious diseases anticipated end date is October 23, 2019. The patient is awaiting SNF placement to complete antibiotic therapy as well is work on her deconditioning. Exacerbation of COPD-the patient had acute respiratory failure with hypercapnia and exacerbation of her COPD. The acute respiratory failure has resolved. The sputum culture did show methicillin-resistant staph aureus and Pseudomonas. She completed a course of ciprofloxacin for the Pseudomonas and remains on vancomycin as above. The COPD appears to be back at baseline. She remains on prednisone, nebulizer treatment and mucolytic's as well as her Daliresp. I will decrease her prednisone to 40 mg daily with a goal of tapering to off. Her chronic anemia has been stable. We will continue to monitor with blood work. Continue current regimen for coronary artery disease. No evidence of acute coronary syndrome. Dementia appears to be at baseline. Continue supportive care. Hypothyroidism-continue levothyroxine Deconditioning with debility-the patient would benefit from jail placement not only for antibiotics but also for ongoing physical therapy to help build strength and stamina. I believe discharge planning is attempting to reach the patient's daughter for definitive decision making. Evidently this has been an issue in the past where it seems to be difficult to make contact with the patient's daughter. 10/02/2019 Currently on IV vancomycin for bacteremia with MRSA and enterococci. Therapy through October 22. Pseudomonas pneumonia treatment completed with fluoroquinolone therapy COPD with exacerbation of respiratory failure appears to be stable. It is likely that the patient is at her baseline. Continue current regimen including nebulizer treatments and slow taper of prednisone therapy. Continue supportive care for her dementia. Continue levothyroxine for her hypothyroidism. The plan is transitioning to jail with the potential for long-term care. Awaiting acceptance and bed availability. Case management is still working diligently with the family but it is often difficult to make contact. 10/03/2019 As noted above the patient was sleeping soundly and so I did not forcefully awaken her. I believe she is at her baseline. I did review the case with the environmental planner. Evidently the patient does have a bed at [facility]. They had preferred oral antibiotic therapy versus intravenous. I feel that changing her to Zyvox for the remainder of her treatment window (through October 22) is acceptable. Her transfer is pending further communication with family and the facility. Her son has agreed to the transfer but there is still on reasonable difficulty communicating with the patient's daughter. It is unlikely that the transfer will occur today based on the timing and communication issues. - Time Time Spent with patient: Less than 15 minutes Medications reviewed and adjusted accordingly: Yes Anticipated discharge: SNF Within: within 24 hours
[2019-10-04] MEDS: IPRATROPIUM/ALBUTEROL 0.5-2.5 MG/3 ML AMPUL NEB SCH ×3 (02:33→13:54)
[2019-10-04 05:53] LABS: VANCOMYCIN,TROUGH 23.9 ug/mL (5.0-20.0)
[2019-10-04] MEDS ORDERED: LEVOTHYROXINE SODIUM 0.1 MG TABLET PO SCH (06:00)
[2019-10-04] MEDS: GUAIFENESIN 600 MG TABLET.SA PO SCH ×2 (06:10→09:07)
[2019-10-04] MEDS: FAMOTIDINE 20 MG TABLET PO SCH ×2 (06:10→09:07)
[2019-10-04] MEDS: VANCOMYCIN HCL 1,500 MG in DEXTROSE 5%-WATER 250 ML IV SCH (06:11)
[2019-10-04] MEDS: POTASSIUM CHLORIDE 10 MEQ TABLET.ER PO SCH (09:07)
[2019-10-04] MEDS: SENNOSIDES/DOCUSATE 8.6-50 MG 1 EACH TABLET PO SCH (09:07)
[2019-10-04] MEDS: FERROUS SULFATE 325 MG TABLET PO SCH ×2 (09:07→13:20)
[2019-10-04] MEDS: DOCUSATE SODIUM 100 MG CAPSULE PO SCH (09:07)
[2019-10-04] MEDS: PREDNISONE 20 MG TABLET PO SCH (09:08)
[2019-10-04] MEDS: POLYETHYLENE GLYCOL 3350 POWDER 17 GM/1 PACKET PO SCH (09:08)
[2019-10-04] MEDS: NYSTATIN TOPICAL POWDER 15 GM TP SCH (09:09)
[2019-10-04] MEDS: ENOXAPARIN SODIUM INJ 40 MG/0.4 ML DISP.SYRIN SUBCUT SCH (09:09)
[2019-10-04] MEDS ORDERED: LINEZOLID 600 MG TABLET PO SCH (10:00)
[2019-10-04 13:06] VITALS: BP 129/65
[2019-10-04] MEDS: MULTIVITAMIN TABLET PO SCH (13:20)
--- NOTE | 2019-10-04 14:57 | PDOC TRANSFER SUMMARY ---
Impression - Admit/DC Date/PCP Admission Date/Primary Care Provider: 09/19/19 11:46 ARASELI AGUILAR MD Discharge Date: 10/04/19 - Discharge Diagnosis (1) Bacteremia due to methicillin resistant Staphylococcus aureus Is this a current diagnosis for this admission?: Yes (2) Enterococcal bacteremia Is this a current diagnosis for this admission?: Yes (3) Acute respiratory failure with hypercapnia Is this a current diagnosis for this admission?: Yes (5) Chronic anemia Is this a current diagnosis for this admission?: Yes (6) Coronary artery disease Is this a current diagnosis for this admission?: Yes (7) Debility and deconditioning Is this a current diagnosis for this admission?: Yes (8) Dementia Is this a current diagnosis for this admission?: Yes (9) Hypothyroid Is this a current diagnosis for this admission?: Yes - Assessment Summary: Patient was admitted on 09/19/2019 and treated for respiratory distress and initial presentation with COPD exacerbation. Blood work was obtained with resulting positive blood cultures for MRSA and enterococcus. Chest x-ray r evealed cardiomegaly but no acute active pulmonary disease. Blood work was negative for leukocytosis. Patient was started on IV antibiotics. DANELLE was performed which showed no evidence of mass or vegetation with normal ejection fraction of over 55%, mild to moderate MR, mild TR and normal systolic function. Infectious disease was consulted who recommended treatment from MRSA bacteremia as well as enterococcal bacteremia. Patient has been on IV vancomycin but will continue on p.o. Zyvox 600 mg every 12 hours up until October 23, 2019. Patient has also received treatment for her COPD exacerbation with nebulizers and is currently on a prednisone taper to be tapered as 20 mg for 2 days then 15 mg daily for 2 days then 10 mg daily for 2 days then 5 mg daily for 2 days then stop. Patient was also treated for acute bacterial bronchitis with sputum culture growing MRSA and Pseudomonas and received ciprofloxacin for a few days and has completed treatment for this. Due to patient's significant debility, patient will benefit from being transferred to jail facility for rehabilitation. Patient does have history of significant dementia and often, mental status waxes and wanes and often sleeps long hours. Patient is medically stable at this time and is being transferred to jail facility after consent received from a POA. - Additional Information Resuscitation Status: Full Code Referrals: ARASELI AGUILAR MD [Primary Care Provider] - Follow up as needed Home Medications: Famotidine [Pepcid 20 mg Tablet] 20 mg PO DAILY 09/19/19 Levothyroxine Sodium [Synthroid 0.05 mg Tablet] 0.1 mg PO Q6AM 09/19/19 Potassium Chloride [Klor-Con 10 Meq Tablet ER] 10 meq PO DAILY 09/19/19 Sertraline HCl [Zoloft 50 mg Tablet] 50 mg PO DAILY 09/19/19 Acetaminophen [Tylenol 325 mg Tablet] 650 mg PO Q4HP PRN tablet 10/04/19 Bisacodyl [Dulcolax 5 mg Tablet] 10 mg PO DAILYP PRN tabec 10/04/19 Docusate Sodium [Colace 100 mg Capsule] 100 mg PO DAILY capsule 10/04/19 Ferrous Sulfate [Feosol 325 mg Tablet] 325 mg PO MEALS tablet 10/04/19 Ipratropium/Albuterol Sulfate [Duoneb 3 ml Ampul] 3 ml NEB [id number] PRN vial.neb 10/04/19 Linezolid [Zyvox 600 mg Tablet] 600 mg PO Q12 tablet 10/04/19 Polyethylene Glycol 3350 [Miralax Powder 17 gm/Packet] 17 gm PO DAILY powd.pack 10/04/19 Prednisone [Deltasone 20 mg Tablet] 20 mg PO DAILY tablet 10/04/19 History of Present Illiness History of Present Illness: TRENTON MCCOY is a 74 year old female who has had multiple hospital admissions recently for the same problem which is shortness of breath, cough COPD exacerbation, hypoxia. Patient was initially evaluated by job printer apprentice however he does not feel like she meets ICU criteria, I agree and will put the patient on IMCU. Chest x-ray shows no sign of active acute infiltrate, the past patient has had CT scans of the chest which usually has just showed pulmonary fibrosis and COPD changes. There is also notation that the patient has not been taking her medications properly. The job printer apprentice suggested that we talk to the family about palliative care and I think that would be a good idea as well Physical Exam Vital Signs: Temp Pulse Resp BP Pulse Ox 98.2 F 102 H 20 129/65 H 99 10/04/19 12:23 10/04/19 13:54 10/04/19 13:54 10/04/19 12:23 10/04/19 13:54 Intake & Output 10/03/19 10/04/19 10/05/19 06:59 06:59 06:59 Intake Total 770 250 Output Total 1650 1300 Balance -880 -1050 Weight 75.9 kg 74.8 kg General appearance: PRESENT: no acute distress, cooperative Neck exam: ABSENT: JVD Respiratory exam: PRESENT: rhonchi - mild, symmetrical, unlabored. ABSENT: tachypnea, wheezes Cardiovascular exam: PRESENT: +S1, +S2 GI/Abdominal exam: PRESENT: normal bowel sounds, soft. ABSENT: rebound, rigid, tenderness Neurological exam: PRESENT: alert, awake, oriented to person, oriented to place, oriented to time - Currently oriented but this waxes and wanes Results Laboratory Results: WBC 7.2 10^3/uL (4.0-10.5) 10/03/19 06:00 RBC 2.53 10^6/uL (3.72-5.28) L 10/03/19 06:00 Hgb 8.4 g/dL (12.0-15.5) L 10/03/19 06:00 Hct 24.6 % (36.0-47.0) L 10/03/19 06:00 MCV 97 fl (80-97) 10/03/19 06:00 MCH 33.1 pg (27.0-33.4) 10/03/19 06:00 MCHC 34.2 g/dL (32.0-36.0) 10/03/19 06:00 RDW 18.0 % (11.5-14.0) H 10/03/19 06:00 Plt Count 221 10^3/uL (150-450) 10/03/19 06:00 Lymph % (Auto) 13.2 % (13-45) 10/03/19 06:00 [place] % (Auto) 12.9 % (3-13) 10/03/19 06:00 Eos % (Auto) 0.3 % (0-6) 10/03/19 06:00 Baso % (Auto) 0.2 % (0-2) 10/03/19 06:00 Reticulocyte # 0.058 10^6/uL (0.028-0.122) 10/03/19 06:00 Absolute Neuts (auto) 5.3 10^3/uL (1.7-8.2) 10/03/19 06:00 Absolute Lymphs (auto) 1.0 10^3/uL (0.5-4.7) 10/03/19 06:00 Absolute Monos (auto) 0.9 10^3/uL (0.1-1.4) 10/03/19 06:00 Absolute Eos (auto) 0.0 10^3/uL (0.0-0.6) 10/03/19 06:00 Absolute Basos (auto) 0.0 10^3/uL (0.0-0.2) 10/03/19 06:00 Total Counted 100 09/20/19 05:12 Seg Neutrophils % 73.4 % (42-78) 10/03/19 06:00 Seg Neuts % (Manual) 90 % (42-78) H 09/20/19 05:12 Band Neutrophils % 5 % (3-5) 09/20/19 05:12 Lymphocytes % (Manual) 3 % (13-45) L 09/20/19 05:12 Monocytes % (Manual) 2 % (3-13) L 09/20/19 05:12 Eosinophils % (Manual) 0 % (0-6) 09/20/19 05:12 Basophils % (Manual) 0 % (0-2) 09/20/19 05:12 Abs Neuts (Manual) 7.0 10^3/uL (1.7-8.2) 09/20/19 05:12 Abs Lymphs (Manual) 0.2 10^3/uL (0.5-4.7) L 09/20/19 05:12 Abs Monocytes (Manual) 0.1 10^3/uL (0.1-1.4) 09/20/19 05:12 Absolute Eos (Manual) 0.0 10^3/uL (0.0-0.6) 09/20/19 05:12 Abs Basophils (Manual) 0.0 10^3/uL (0.0-0.2) 09/20/19 05:12 Platelet Comment ADEQUATE 09/20/19 05:12 Anisocytosis SLIGHT 09/20/19 05:12 Tear Drop Cells SLIGHT 09/20/19 05:12 Ovalocytes SLIGHT 09/20/19 05:12 Retic Count (auto) 2.28 % (0.66-2.85) 10/03/19 06:00 PT 13.3 SEC (11.4-15.4) 09/19/19 13:31 INR 1.01 09/19/19 13:31 Carbonic Acid 1.60 mmol/L (1.05-1.35) H 09/26/19 10:23 HCO3/H2CO3 Ratio 23:1 09/26/19 10:23 ABG pH 7.47 (7.35-7.45) H 09/26/19 10:23 ABG pCO2 53.1 mmHg (35-45) H 09/26/19 10:23 ABG pO2 52.4 mmHg (80-100) L 09/26/19 10:23 ABG HCO3 37.9 mmol/L (20-24) H 09/26/19 10:23 ABG Total CO2 39.5 mmol/L (21-25) H 09/26/19 10:23 ABG O2 Saturation 88.4 % (94-98) L 09/26/19 10:23 ABG Base Excess 12.6 mmol/L 09/26/19 10:23 FiO2 5L 09/26/19 10:23 Sodium 139.1 mmol/L (137-145) 10/03/19 06:00 Potassium 3.7 mmol/L (3.6-5.0) 10/03/19 06:00 Chloride 100 mmol/L (98-107) 10/03/19 06:00 Carbon Dioxide 39 mmol/L (22-30) H 10/03/19 06:00 Anion Gap 0 (5-19) L 10/03/19 06:00 BUN 16 mg/dL (7-20) 10/03/19 06:00 Creatinine 1.03 mg/dL (0.52-1.25) 10/04/19 05:00 Est GFR ( Amer) > 60 (>60) 10/04/19 05:00 Est GFR (MDRD) Non-Af 52 (>60) L 10/04/19 05:00 Glucose 87 mg/dL (75-110) 10/03/19 06:00 POC Glucose 204 mg/dL (70-110) H 09/20/19 16:25 Hemoglobin A1c % 5.9 % (4.7-6.0) 09/20/19 05:12 Lactic Acid 1.1 mmol/L (0.7-2.1) 09/19/19 09:36 Calcium 9.0 mg/dL (8.4-10.2) 10/03/19 06:00 Magnesium 2.1 mg/dL (1.6-2.3) 10/03/19 06:00 Iron 48.9 ug/dL (37-170) 10/03/19 06:00 TIBC 238 ug/dL (250-450) L 10/03/19 06:00 % Saturation 21 % 10/03/19 06:00 Ferritin 101.00 ng/mL (11.1-264.0) 10/03/19 06:00 Total Bilirubin 0.4 mg/dL (0.2-1.3) 09/19/19 08:10 Direct Bilirubin 0.1 mg/dL (0.0-0.4) 09/19/19 08:10 Neonat Total Bilirubin Not Reportable 09/19/19 08:10 Neonat Direct Bilirubin Not Reportable 09/19/19 08:10 Neonat Indirect Bili Not Reportable 09/19/19 08:10 AST 26 U/L (14-36) 09/19/19 08:10 ALT 15 U/L (<35) 09/19/19 08:10 Alkaline Phosphatase 58 U/L (38-126) 09/19/19 08:10 Ammonia < 8.7 umol/L (9-33) L 09/19/19 11:54 Creatine Kinase 24 U/L (30-135) L 09/20/19 19:01 CK-MB (CK-2) 1.66 ng/mL (<4.55) 09/20/19 19:01 Troponin I 0.028 ng/mL 09/20/19 19:01 NT-Pro-B Natriuret Pep 1060 pg/mL (<450) H 09/19/19 13:31 Total Protein 5.6 g/dL (6.3-8.2) L 09/19/19 08:10 Albumin 2.9 g/dL (3.5-5.0) L 09/19/19 08:10 Vitamin B12 470.0 pg/mL (239-931) 10/03/19 06:00 Folate 17.60 ng/mL (>2.76) 10/03/19 06:00 TSH 4.15 uIU/mL (0.47-4.68) 09/19/19 08:10 Urine Color YELLOW 09/19/19 11:45 Urine Appearance CLOUDY 09/19/19 11:45 Urine pH 6.0 (5.0-9.0) 09/19/19 11:45 Ur Specific [place] 1.011 09/19/19 11:45 Urine Protein 30 mg/dL (NEGATIVE) H 09/19/19 11:45 Urine Glucose (UA) NEGATIVE mg/dL (NEGATIVE) 09/19/19 11:45 Urine Ketones NEGATIVE mg/dL (NEGATIVE) 09/19/19 11:45 Urine Blood SMALL (NEGATIVE) H 09/19/19 11:45 Urine Nitrite POSITIVE (NEGATIVE) H 09/19/19 11:45 Urine Bilirubin NEGATIVE (NEGATIVE) 09/19/19 11:45 Urine Urobilinogen NEGATIVE mg/dL (<2.0) 09/19/19 11:45 Ur Leukocyte Esterase LARGE (NEGATIVE) H 09/19/19 11:45 Urine WBC (Auto) >182 /HPF 09/19/19 11:45 Urine RBC (Auto) 11 /HPF 09/19/19 11:45 U Hyaline Cast (Auto) 6 /LPF 09/19/19 11:45 Urine Bacteria (Auto) 3+ /HPF 09/19/19 11:45 Urine WBC Clumps MANY /HPF 09/19/19 11:45 Squamous Epi Cells Auto <1 /HPF 09/19/19 11:45 Urine Mucus (Auto) RARE /LPF 09/19/19 11:45 Urine Ascorbic Acid NEGATIVE (NEGATIVE) 09/19/19 11:45 Time Trough Drawn 0500 10/04/19 05:00 Vancomycin Trough 23.9 ug/mL (5.0-20.0) H 10/04/19 05:00 Urine Opiates Screen NEGATIVE 09/19/19 11:45 Urine Methadone Screen NEGATIVE 09/19/19 11:45 Ur Barbiturates Screen NEGATIVE 09/19/19 11:45 Ur Phencyclidine Scrn NEGATIVE 09/19/19 11:45 Ur Amphetamines Screen NEGATIVE 09/19/19 11:45 U Benzodiazepines Scrn NEGATIVE 09/19/19 11:45 Urine Cocaine Screen NEGATIVE 09/19/19 11:45 U Marijuana (THC) Screen NEGATIVE 09/19/19 11:45 Influenza A (Rapid) NEGATIVE (NEGATIVE) 09/19/19 09:10 Influenza B (Rapid) NEGATIVE (NEGATIVE) 09/19/19 09:10 09/19/19 09/19/19 09/20/19 08:10 13:31 06:18 CK-MB (CK-2) 1.48 Troponin I 0.017 0.018 NT-Pro-B Natriuret Pep 1050 H 1060 H 09/20/19 09/20/19 12:43 19:01 CK-MB (CK-2) 1.83 1.66 Troponin I 0.030 0.028 NT-Pro-B Natriuret Pep Impressions: Chest X-Ray 09/19/19 08:44 IMPRESSION: HEART ENLARGED WITHOUT FAILURE. NO OTHER SIGNIFICANT RADIOGRAPHIC FINDING IN THE CHEST. Guidance Fluoroscopy 09/27/19 00:00 IMPRESSION: SUCCESSFUL PLACEMENT OF A 5 FR DUAL LUMEN 46 CM PICC IN THE LEFT BASILIC VEIN. Interventional Vascular Procedure 09/27/19 00:00 IMPRESSION: SUCCESSFUL PLACEMENT OF A 5 FR DUAL LUMEN 46 CM PICC IN THE LEFT BASILIC VEIN. PICC Line Insertion 09/27/19 00:00 IMPRESSION: SUCCESSFUL PLACEMENT OF A 5 FR DUAL LUMEN 46 CM PICC IN THE LEFT BASILIC VEIN. Chest X-Ray 10/02/19 00:00 IMPRESSION: No acute cardiopulmonary process. Plan Time Spent: Greater than 30 Minutes Stroke Is this a Stroke Patient?: No Acute Heart Failure - Is this a Heart Failure Patient?: No
[2019-10-05] MEDS ORDERED: VANCOMYCIN HCL 1,000 MG in DEXTROSE 5%-WATER 250 ML IV SCH (06:00)
== END 2019-10-04 16:12 | DRG 871 ==
LOC: ER 08:37 → EH 11:46 → 3W 17:08
PROVIDERS: ADMIT Hospitalist; ATTEND Hospitalist
PROC: 5A09357 Assistance with Respiratory Ventilation, Less than 24 Consecutive Hours, Continuous Positive Airway Pressure (ICD-10-PCS; principal; 2019-09-19)
PROC: 02HV33Z Insertion of Infusion Device into Superior Vena Cava, Percutaneous Approach (ICD-10-PCS; 2019-09-27)
PROC: B518ZZA Fluoroscopy of Superior Vena Cava, Guidance (ICD-10-PCS; 2019-09-27)
PROC: B548ZZA Ultrasonography of Superior Vena Cava, Guidance (ICD-10-PCS; 2019-09-27)
DX: R78.81 Bacteremia (principal); J96.22 Acute and chronic respiratory failure with hypercapnia; G93.41 Metabolic encephalopathy; J96.21 Acute and chronic respiratory failure with hypoxia; C34.90 Malignant neoplasm of unspecified part of unspecified bronchus or lung; C79.31 Secondary malignant neoplasm of brain; J44.1 Chronic obstructive pulmonary disease with (acute) exacerbation; Z16.12 Extended spectrum beta lactamase (ESBL) resistance; R62.7 Adult failure to thrive; I95.89 Other hypotension; I48.91 Unspecified atrial fibrillation; I50.9 Heart failure, unspecified; I25.10 Atherosclerotic heart disease of native coronary artery without angina pectoris; I11.0 Hypertensive heart disease with heart failure; E03.9 Hypothyroidism, unspecified; E11.8 Type 2 diabetes mellitus with unspecified complications; D64.9 Anemia, unspecified; B95.62 Methicillin resistant Staphylococcus aureus infection as the cause of diseases classified elsewhere; B95.2 Enterococcus as the cause of diseases classified elsewhere; B96.20 Unspecified Escherichia coli [E. coli] as the cause of diseases classified elsewhere; F03.90 Unspecified dementia, unspecified severity, without behavioral disturbance, psychotic disturbance, mood disturbance, and anxiety; I25.2 Old myocardial infarction; Z99.81 Dependence on supplemental oxygen; Z79.51 Long term (current) use of inhaled steroids; Z79.52 Long term (current) use of systemic steroids; Z79.899 Other long term (current) drug therapy; Z88.1 Allergy status to other antibiotic agents; Z88.0 Allergy status to penicillin; Z91.19 Patient's noncompliance with other medical treatment and regimen
CPT/HCPCS: 01922; 36415; 36569; 36600; 71045; 76937; 77001; 80048; 80053; 80202; 80307; 81001; 82140; 82550; 82553; 82565; 82607; 82728; 82746; 82803; 82962; 83036; 83540; 83550; 83605; 83735; 83880; 84443; 84484; 85025; 85027; 85045; 85610; 87040; 87070; 87077; 87086; 87088; 87150; 87186; 87205; 87804; 93005; 93010; 93312; 93325; 94640; 94660; 94667; 94799; 99291; C1769; J0744; J1200; J1642; J1650; J1940; J2020; J2185; J2405; J2704; J2920; J3370; J3480; J3490; J7030; J7060; J7512; J7620; P9041

== ENCOUNTER 2019-10-13 18:58 | Emergency (ER) | payer MEDICARE ==
[2019-10-13 19:40] LABS: ABSOLUTE BASOPHILS # (AUTO) 0.1 10^3/uL (0.0-0.2); ABSOLUTE EOSINOPHILS # (AUTO) 0.1 10^3/uL (0.0-0.6); ABSOLUTE MONOCYTES (AUTO) 0.5 10^3/uL (0.1-1.4); BASOPHILS % (AUTO) 1.2 % (0-2); EOSINOPHILS % (AUTO) 2.1 % (0-6); HEMATOCRIT 28.3 % (36.0-47.0); HEMOGLOBIN 9.6 g/dL (12.0-15.5); MEAN CORPUSCULAR HEMOGLOBIN 33.2 pg (27.0-33.4); MEAN CORPUSCULAR HGB CONC 33.9 g/dL (32.0-36.0); MEAN CORPUSCULAR VOLUME 98 fl (80-97); PLATELET COUNT 111 10^3/uL (150-450); RED BLOOD COUNT 2.89 10^6/uL (3.72-5.28); RED CELL DISTRIBUTION WIDTH 17.3 % (11.5-14.0); SEGMENTED NEUTROPHILS % (AUTO) 70.7 % (42-78); TOTAL CELLS COUNTED % (AUTO) 100 %; WHITE BLOOD COUNT 5.7 10^3/uL (4.0-10.5)
--- NOTE | 2019-10-13 19:51 | RADIOLOGY REPORT (SQ) ---
EXAM DESCRIPTION: CHEST SINGLE VIEW COMPLETED DATE/TIME: 10/13/2019 7:41 pm REASON FOR STUDY: sob, fever COMPARISON: 10/02/2019, 07/13/2019, 05/20/2019 EXAM PARAMETERS: NUMBER OF VIEWS: One view. TECHNIQUE: Single frontal radiographic view of the chest acquired. RADIATION DOSE: NA LIMITATIONS: None. FINDINGS: LUNGS AND PLEURA: No opacities, masses or pneumothorax. No pleural effusion. MEDIASTINUM AND HILAR STRUCTURES: Stable appearance of the right hilum HEART AND VASCULAR STRUCTURES: The heart is normal in size. The aorta is calcific and mildly tortuou s. BONES: No acute findings. HARDWARE: None in the chest. OTHER: No other significant finding. IMPRESSION: NO ACUTE RADIOGRAPHIC FINDING IN THE CHEST. TECHNICAL DOCUMENTATION: JOB ID: [id number] 2010 [employer]- All Rights Reserved Reading location - IP/workstation name: [email or web address]
[2019-10-13 20:02] LABS: ALBUMIN 2.9 g/dL (3.5-5.0); ALKALINE PHOSPHATASE 49 U/L (38-126); ASPARTATE AMINO TRANSFERASE 18 U/L (14-36); BILIRUBIN,TOTAL 0.4 mg/dL (0.2-1.3); BLOOD UREA NITROGEN 10 mg/dL (7-20); CALCIUM 8.1 mg/dL (8.4-10.2); CHLORIDE 100 mmol/L (98-107); GLUCOSE 108 mg/dL (75-110); POTASSIUM 5.2 mmol/L (3.6-5.0); TOTAL PROTEIN 5.2 g/dL (6.3-8.2)
[2019-10-13 20:13] LABS: ANION GAP 1 (5-19); CARBON DIOXIDE 38 mmol/L (22-30)
[2019-10-13] MEDS ORDERED: METHYLPREDNISOLONE INJ 125 MG/2 ML SDV IV ONE (20:36)
--- NOTE | 2019-10-13 20:40 | ER Document Report ---
Entered by CLINTON CHOE SCRIBE 10/13/192024 Acting as scribe for:NITESH ROBERTSON IV, MD ED General - General Chief Complaint: Respiratory Distress Stated Complaint: SHORTNESS OF BREATH Primary Care Provider: ARASELI AGUILAR MD [Primary Care Provider] - Follow up as needed Mode of Arrival: Medic Information source: Patient, Emergency Med Personnel Notes: This 74 year old female patient with a history of COPD and acute on chronic respiratory failure who was brought in by EMS from [facility] presents to the ED today with complaints of shortness of breath, dyspnea, and productive cough with green sputum. Patient was discharged from hospital recently after being diagnosed with pneumonia. EMS reports that the facility noted that the patient presented with shortness of breath with an O2 sat of 84%. EMS reports that the facility provided A&A treatment which decreased the patient's O2 sat down to 76%. EMS states that the patient was AAOx3 upon their arrival and that they placed the patient on 8L O2 via nonrebreather with improvement to 100% O2 sat. TRAVEL OUTSIDE OF THE [place] IN LAST 30 DAYS: No - Related Data Allergies/Adverse Reactions: azithromycin Allergy (Verified 08/17/19 11:19) cephalexin Allergy (Verified 08/17/19 11:19) Penicillins Allergy (Verified 08/17/19 11:19) amoxicillin [Amoxicillin] Adverse Reaction (Verified 08/17/19 11:19) visual hallucinations erythromycin base [Erythromycin Base] Adverse Reaction (Verified 08/17/19 11:19) visual hallucinations Potassium Clavulanate * [From Augmentin] Adverse Reaction (Verified 08/17/19 11:19) visual hallucinations Home Medications: Med Rec from facility placed with paper chart Past Medical History - General Information source: Patient, Emergency Med Personnel, [facility] Records - Social History Smoking Status: Unknown if Ever Smoked Cigarette use (# per day): No Chew tobacco use (# tins/day): No Smoking Education Provided: No Family History: Reviewed & Not Pertinent, COPD, Malignancy - Lung cancer Patient has suicidal ideation: No Patient has homicidal ideation: No - Past Medical History Cardiac Medical History: Reports: Hx Atrial Fibrillation, Hx Congestive Heart Failure, Hx Coronary Artery Disease, Hx Heart Attack, Hx Hypertension Pulmonary Medical History: Reports: Hx Asthma, Hx Bronchitis, Hx COPD, Hx Pneumonia, Hx Respiratory Failure - Chronic respiratory failure, Hx Sleep Apnea Endocrine Medical History: Reports: Hx Diabetes Mellitus Type 2, Hx Hypothyroidism Malignancy Medical History: Reports: Hx Brain Cancer - Lung cancer with brain metastases, Hx Breast Cancer, 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 GI Medical History: Reports: Hx Gastroesophageal Reflux Disease Musculoskeletal Medical History: Reports Hx Arthritis, Reports Hx Gout, Reports Hx Musculoskeletal Deformity, Reports Hx Musculoskeletal Trauma Psychiatric Medical History: Reports: Hx Dementia, Hx Depression Infectious Medical History: Reports: Hx C-Diff Past Surgical History: Reports: Hx Cholecystectomy, Hx Orthopedic Surgery - Foot surgery, Other - Bilateral cataract surgery - Immunizations Immunizations up to date: Yes Hx Diphtheria, Pertussis, Tetanus Vaccination: Yes Hx Pneumococcal Vaccination: 08/30/12 Review of Systems - Review of Systems Constitutional: No symptoms reported EENT: No symptoms reported Cardiovascular: See HPI, Dyspnea Respiratory: See HPI, Cough, Short of breath, Sputum Gastrointestinal: No symptoms reported Genitourinary: No symptoms reported Female Genitourinary: No symptoms reported Musculoskeletal: No symptoms reported Skin: No symptoms reported Hematologic/Lymphatic: No symptoms reported Neurological/Psychological: No symptoms reported -: Yes All other systems reviewed and negative Physical Exam - Vital signs Vitals: Resp Pulse Ox 22 H 100 10/13/19 19:09 10/13/19 19:09 - General General appearance: Other - Somnolent In distress: None - HEENT Head: Normocephalic, Atraumatic Eyes: Normal Pupils: PERRL - Respiratory Respiratory status: No respiratory distress Chest status: Nontender Breath sounds: Rhonchi - in right lung field, Wheezing - in right lung field Chest palpation: Normal - Cardiovascular Rhythm: Regular Heart sounds: Normal auscultation Murmur: No Friction rub: No Gallop: None auscultated - Abdominal Inspection: Normal Distension: No distension Bowel sounds: Normal Tenderness: Nontender - Abdomen soft Organomegaly: No organomegaly - Back Back: Normal, Nontender - Extremities General upper extremity: Normal inspection General lower extremity: Normal inspection. No: Edema - No pedal edema - Neurological Neuro grossly intact: Yes - Psychological Associated symptoms: Other - Somnolent - Skin Skin Temperature: Warm Skin Moisture: Dry Skin Color: Normal Course - Re-evaluation Re-evalutation: 10/13/19 23:27 Patient now seems to be becoming more alert after being started on BiPAP. Pat ient's eyes are open and she makes eye contact with this provider when he enters the room. Patient even said hello to this provider. 10/14/19 02:40 Patient has been placed on 3 L of O2 by nasal cannula which [facility]. Patient appears to be resting comfortably, is easily arousable and subsequently awake, and shows no signs of confusion or respiratory distress. Patient's medical records were reviewed by this MD. Patient has a history of multidrug-resistant UTI. Culture from 09/19/2019 was reviewed by this MD. Urine culture showed that it was sensitive to ertapenem imipenem meropenem nitrofurantoin Pipracil and tazobactam and tetracycline. Patient has received an IV dose of meropenem here in the emergency department and has no known allergy to nitrofurantoin. Patient will be discharged back to the detention [facility] with a prescription for nitrofurantoin. - Vital Signs Vital signs: Temp Pulse Resp BP Pulse Ox 98.8 F 105 H 17 128/70 H 100 10/13/19 19:11 10/13/19 19:11 10/13/19 22:50 10/13/19 19:11 10/13/19 22:50 - Laboratory Result Diagrams: 10/13/19 19:15 10/13/19 19:15 Laboratory results interpreted by me: 10/13/19 10/13/19 10/13/19 19:15 19:15 19:34 RBC 2.89 L Hgb 9.6 L Hct 28.3 L MCV 98 H RDW 17.3 H Plt Count 111 L Carbonic Acid ABG pH ABG pCO2 ABG pO2 ABG HCO3 ABG Total CO2 ABG O2 Saturation Potassium 5.2 H Carbon Dioxide 38 H Anion Gap 1 L POC Glucose 127 H Calcium 8.1 L NT-Pro-B Natriuret Pep Total Protein 5.2 L Albumin 2.9 L Urine Protein Urine Blood Urine Nitrite (Reflex) Leukocyte Esterase Rfl 10/13/19 10/13/19 10/14/19 21:55 23:34 01:30 RBC Hgb Hct MCV RDW Plt Count Carbonic Acid 2.49 H ABG pH 7.30 L ABG pCO2 82.7 H* ABG pO2 63.9 L ABG HCO3 39.7 H ABG Total CO2 42.2 H ABG O2 Saturation 88.8 L Potassium Carbon Dioxide Anion Gap POC Glucose Calcium NT-Pro-B Natriuret Pep 1080 H Total Protein Albumin Urine Protein 30 H Urine Blood SMALL H Urine Nitrite (Reflex) POSITIVE H Leukocyte Esterase Rfl MODERATE H - EKG Interpretation by Me Additional EKG results interpreted by me: 10/14/19 02:43 EKG obtained on 10/13/2019 at 1927 hrs. was interpreted by this MD. Findings: Sinus rhythm, rate 96, right bundle branch block is present, ST segments are nonspecific. Impression sinus rhythm with right bundle branch block and nonspecific ST segments. - Consults dr geno quintanilla Time consulted: 03:10 - agrees with plan to d/c pt back to snf Discharge - Discharge Clinical Impression: UTI (urinary tract infection) Qualifiers: Urinary tract infection type: site unspecified Hematuria presence: with hematuria Qualified Code(s): N39.0 - Urinary tract infection, site not specified Condition: Good Disposition: SNF-Other Instructions: Urinary Tract Infection ([facility]) Additional Instructions: Return to the Emergency Department without delay if any worse. HOME CARE INSTRUCTIONS & INFORMATION: Thank you for choosing us for your medical needs. We hope you're satisfied with the care you received. After you leave, you must properly care for your problem and, at the same time, observe its progress. Any condition can change. Some illnesses can change rapidly over hours or days. If your condition worsens, return to the Emergency Department or see your physician promptly. ABOUT YOUR X-RAYS AND EKG'S: If you had an EKG or X-rays taken, they have been read by the Emergency Physician. The X-rays and EKG's will also be read by a Radiologist or Information Technology Advisor within 24 hours. If discrepancies are noted, you will be notified by telephone. Please be certain the ED has a correct telephone number & address where you can be reached. Also, realize that some fractures or abnormalities do not show up on initial X-rays. If your symptoms continue, see your physician. ABOUT YOUR LABORATORY TEST: If you had laboratory tests, the results have been reviewed by the Emergency Physician. Some test results (for example cultures) may not be available for several days. You will be contacted if any test result shows you need additional treatment. Please be certain the ED has a correct telephone number and address where you can be reached. ABOUT YOUR MEDICATIONS: You will receive instructions on how to take your medicine on the prescription label you receive. Additional information may be provided by the Pharmacy. If you have questions afterwards, call the ED for clarification or further instructions. Some prescribed medications may cause drowsiness. Do not perform tasks such as driving a car or operating machinery without consulting your Pharmacist. If you feel you need a refill of pain medication, your condition will need re-evaluation. Please do not call for a refill of any medication. ABOUT YOUR SIGNATURE: Signature of this document acknowledges to followin. Understanding that you received emergency treatment and that you may be re leased before al medical problems are known or treated. Please be certain the ED has a correct phone number & address where you can be reached. 2. Acknowledgement that you will arrange for follow-up care as recommended. 3. Authorization for the Emergency Physician to provide information to your follow-up Physician in order to maximize your care. AT ANY TIME, IF YOUR SYMPTOMS CHANGE SIGNIFICANTLY OR WORSEN OR YOU DEVELOP NEW SYMPTOMS, RETURN TO THE EMERGENCY DEPARTMENT IMMEDIATELY FOR RE-EVALUATION. OUR GOAL IS TO PROVIDE EXCELLENT MEDICAL CARE! WE HOPE THAT WE HAVE MET YOUR EXPECTATIONS DURING YOUR EMERGENCY DEPARTMENT VISIT AND THAT YOU FEEL YOU HAVE RECEIVED EXCELLENT CARE! Prescriptions: Nitrofurantoin Monohyd/M-Cryst [Macrobid 100 mg Capsule] 100 mg PO BID 10 Days #20 cap Referrals: ARASELI AGUILAR MD [Primary Care Provider] - Follow up as needed I personally performed the services described in the documentation, reviewed and edited the documentation which was dictated to the scribe in my presence, and it accurately records my words and actions.
[2019-10-13 20:53] LABS: INTERNATIONAL RATION (INR) 0.94; PROTHROMBIN TIME 12.5 SEC (11.4-15.4)
[2019-10-13 22:09] LABS: ARTERIAL BLOOD BASE EXCESS 11.2 mmol/L; ARTERIAL BLOOD H2CO3 2.49 mmol/L (1.05-1.35); ARTERIAL BLOOD HCO3 39.7 mmol/L (20-24); ARTERIAL BLOOD O2 SATURATION 88.8 % (94-98); ARTERIAL BLOOD PO2 63.9 mmHg (80-100); ARTERIAL BLOOD TOTAL CO2 42.2 mmol/L (21-25)
[2019-10-13 22:12] LABS: ARTERIAL BLOOD FIO2 3L
[2019-10-13 22:14] LABS: ARTERIAL BLOOD PCO2 82.7 mmHg (35-45)
[2019-10-13] MEDS ORDERED: NORMAL SALINE 500 ML IV ONE (23:28)
[2019-10-13 23:56] LABS: APPEARANCE,URINE TURBID; BILIRUBIN,URINE NEGATIVE (NEGATIVE); COLOR,URINE YELLOW; GLUCOSE, URINE NEGATIVE (NEGATIVE); KETONES,URINE NEGATIVE (NEGATIVE); PROTEIN,URINE 30 mg/dL (NEGATIVE); URINE SPECIFIC GRAVITY 1.014; UROBILINOGEN,URINE NEGATIVE mg/dL (<2.0)
[2019-10-14 00:11] LABS: URINE AMPHETAMINES SCREEN NEGATIVE; URINE BARBITURATES SCREEN NEGATIVE; URINE BENZODIAZEPINES SCREEN NEGATIVE; URINE COCAINE SCREEN NEGATIVE; URINE MARIJUANA (THC) SCREEN NEGATIVE; URINE METHADONE SCREEN NEGATIVE; URINE PHENCYCLIDINE SCREEN NEGATIVE
[2019-10-14] MEDS ORDERED: MEROPENEM 1 GM VIAL IV ONE (00:24)
--- NOTE | 2019-10-14 00:38 | EKG REPORT ---
SEVERITY:- ABNORMAL ECG - SINUS TACHYCARDIA ATRIAL PREMATURE COMPLEX RBBB AND LAFB : Confirmed by: Mercedes Solomon 14-Oct-2019 00:37:13
[2019-10-14 02:08] LABS: TROPONIN I 0.044 ng/mL
[2019-10-14 03:42] VITALS: BP 145/68
== END 2019-10-14 03:54 ==
LOC: ER 18:58
DX: N39.0 Urinary tract infection, site not specified (principal); R06.02 Shortness of breath; R06.00 Dyspnea, unspecified; I48.91 Unspecified atrial fibrillation; I50.9 Heart failure, unspecified; I11.0 Hypertensive heart disease with heart failure; Z85.118 Personal history of other malignant neoplasm of bronchus and lung; Z85.841 Personal history of malignant neoplasm of brain; Z90.49 Acquired absence of other specified parts of digestive tract; Z88.3 Allergy status to other anti-infective agents; I25.2 Old myocardial infarction
CPT/HCPCS: 93005; 36415; 87040; 87070; 87205; 82962; 82803; 83605; 85025; 85610; 87077; 80053; 81001; 84484; 80307; 83880; 71045; 93010; 94660; J2930; J7040; J2185; 51701; 87186; 96361; 96365; 96375; 99285